=== PATIENT | female | born 1995 | race African-American/Black ===

== ENCOUNTER 2020-01-12 15:53 | Emergency (ER) | payer SELFPAY ==
[2020-01-12] MEDS ORDERED: ONDANSETRON 4 MG (ODT) TAB ONE (16:43)
[2020-01-12 17:13] LABS: Urine Blood TRACE (NEG); Urine Glucose NEGATIVE (NEG); Urine Protein NEGATIVE (NEG); Urine Specific Gravity 1.015 (1.005-1.030); Urine pH >8.5 (5.0-7.0)
[2020-01-12] MEDS ORDERED: PROMETHAZINE INJ 25 MG/ML AMP ONE (17:13)
[2020-01-12] MEDS ORDERED: KETOROLAC 30 MG/ML INJ ONE (17:13)
[2020-01-12] MEDS ORDERED: NA CHLORIDE 0.9% 1,000 ML ONE ×2 (17:13→18:14)
[2020-01-12 17:20] LABS: Absolute Lymphocytes (CBC) 2.3 K/uL (0.7-4.9); Basophils % 0.4 % (0-1.3); Hematocrit 43.9 % (36.0-45.0); Lymphocytes % 17.5 % (15.3-44.8); MPV 7.8 fL (7.6-11.3); RBC Red Blood Cell Count 4.55 M/uL (3.86-4.86)
[2020-01-12 17:37] LABS: ALT/SGPT 24 U/L (12-78); AST/SGOT 11 U/L (15-37); Albumin 4.1 g/dL (3.4-5.0); Alkaline Phosphatase 77 U/L (45-117); BUN Blood Urea Nitrogen 6 mg/dL (7-18); Bicarbonate 31 mmol/L (21-32); Bilirubin Direct 0.2 mg/dL (0-0.2); Bilirubin Total 0.7 mg/dL (0.2-1.0); Glucose Level 103 mg/dL (74-106); Lipase 77 U/L (73-393); Potassium 3.2 mmol/L (3.5-5.1); Sodium Level 135 mmol/L (136-145)
[2020-01-12 17:38] LABS: Urine Bacteria 20-50 /HPF (<20); Urine Culture Reflex Order NOT NEEDED; Urine RBC <5 /HPF (NONE SEEN)
[2020-01-12] MEDS ORDERED: POTASSIUM 25 MEQ EFFERV TAB ONE (18:10)
[2020-01-12] MEDS ORDERED: CEFTRIAXONE/SWI 1gm 1 GM/10 ML SYR ONE (18:11)
--- NOTE | 2020-01-12 19:18 | ER ---
Nurse's Notes [facility] Name: Robin Bernard Age: 24 yrs Sex: Female : 1995 Arrival Date: 01/12/2020 Time: 15:55 Bed 14 Private MD: Diagnosis: Urinary tract infection, site not specified;Generalized abdominal pain;Nausea and vomiting;Hypokalemia Presentation: 01/11 16:02 Chief complaint: Patient states: i have been nauseous and vomiting for 4 days, i just tw2 dry heave mostly but nothing stays down not even water, and i am having abdominal pain right in the middle Parent and/or Guardian states: normally she gets this pain before her menstrual cycle but this time is different. Coronavirus screen: nausea, Client presents with at least one sign or symptom that may indicate coronavirus-19. Standard/surgical mask placed on the client. Provider contacted for isolation considerations. Ebola Screen: Patient denies travel to an Ebola-affected area in the 21 days before illness onset. Initial Sepsis Screen: Does the patient meet any 2 criteria? No. Patient's initial sepsis screen is negative. Does the patient have a suspected source of infection? No. Patient's initial sepsis screen is negative. Risk Assessment: Do you want to hurt yourself or someone else? Patient reports no desire to harm self or others. Onset of symptoms was January 12, 2020. 16:02 Method Of Arrival: Ambulatory tw2 16:02 Acuity: BOZENA 3 tw2 Triage Assessment: 16:05 General: Appears in no apparent distress. uncomfortable, obese, well groomed, Behavior tw2 is calm, cooperative, appropriate for age. Pain: Complains of pain in abdomen. GI: Reports lower abdominal pain, upper abdominal pain, intolerance of fluids, intolerance of food, nausea, vomiting. 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 - Social history:: Smoking status: . Screenin:05 Abuse screen: Denies threats or abuse. Nutritional screening: No deficits noted. tw2 Tuberculosis screening: No symptoms or risk factors identified. Fall Risk None identified. Assessment: 16:00 General: Appears uncomfortable, obese, well groomed, Behavior is calm, cooperative, tw2 appropriate for age. Pain: Complains of pain in abdomen. Neuro: Level of Consciousness is awake, alert, obeys commands, Oriented to person, place, time, situation. Cardiovascular: Heart tones S1 S2 Patient's skin is warm and dry. Respiratory: Airway is patent Respiratory effort is even, unlabored, Respiratory pattern is regular, symmetrical, Breath sounds are clear bilaterally. GI: Abdomen is round non-distended, obese, Bowel sounds present X 4 quads. Reports lower abdominal pain, upper abdominal pain, intolerance of fluids, intolerance of food, nausea, vomiting. : No signs and/or symptoms were reported regarding the genitourinary system. EENT: No signs and/or symptoms were reported regarding the EENT system. Derm: No signs and/or symptoms reported regarding the dermatologic system. Musculoskeletal: Range of motion: intact in all extremities. 17:19 Reassessment: No changes from previously documented assessment. Patient and/or family tw2 updated on plan of care and expected duration. Pain level reassessed. Patient is alert, oriented x 3, equal unlabored respirations, skin warm/dry/pink. 18:22 Reassessment: No changes from previously documented assessment. Patient and/or family tw2 updated on plan of care and expected duration. Pain level reassessed. Patient is alert, oriented x 3, equal unlabored respirations, skin warm/dry/pink. Patient states symptoms have improved. 19:29 Reassessment: Patient appears in no apparent distress at this time. Patient is alert, rr5 oriented x 3, equal unlabored respirations, skin warm/dry/pink. discharge instruction given and explained without complaint made. Patient states symptoms have improved. Vital Signs: 16:02 BP 149 / 99; Pulse 87; Resp 18; Temp 98.7(O); Pulse Ox 99% on R/A; Weight 108.86 kg tw2 (R); Height 5 ft. 5 in. (165.10 cm) (R); Pain 10/10; 17:19 BP 142 / 92; Pulse 77; Resp 18; Pulse Ox 100% on R/A; tw2 18:22 BP 145 / 93; Pulse 85; Resp 17; Pulse Ox 99% on R/A; tw2 19:15 BP 144 / 83; Pulse 89; Resp 19; Temp 98.5; Pulse Ox 99% ; rr5 16:02 Body Mass Index 39.94 (108.86 kg, 165.10 cm) tw2 ED Course: 15:55 Patient arrived in ED. ag5 15:58 Pulse ox on. NIBP on. tw2 15:59 Elin Castaneda RN is Primary Nurse. tw2 16:04 Triage completed. tw2 16:04 Arm band placed on. tw2 16:05 Bed in low position. Call light in reach. Adult w/ patient. tw2 16:14 Nilsa Alex F[facility]-C [facility]. snw 16:14 Jean Carlos Dias MD is Attending Physician. snw 16:29 Urine Microscopic Only Sent. bp 16:29 Urine Culture Sent. bp 17:05 Inserted saline lock: 20 gauge in right antecubital area, using aseptic technique. tw2 Blood collected. 19:02 Report given to COLE Baltazar. tw2 Administered Medications: 16:36 Drug: Zofran (Ondansetron) 4 mg Route: PO; ph 16:51 Follow up: Response: No adverse reaction; Nausea unchanged; Nausea unchanged, provider tw2 at bedside at this time. 16:54 Not Given (Other Intervention Used): TORadol 30 mg IM once snw 17:05 Drug: NS 0.9% 1000 ml Route: IV; Rate: 1 bolus; Site: right antecubital; tw2 18:53 Follow up: Response: No adverse reaction; IV Status: Completed infusion; IV Intake: tw2 1000ml 17:05 Drug: Phenergan 25 mg Route: IVP; Site: right antecubital; tw2 18:05 Follow up: Response: No adverse reaction; Nausea is decreased tw2 17:05 Drug: Ketorolac 30 mg Route: IVP; Site: right antecubital; tw2 18:05 Follow up: Response: No adverse reaction; Pain is decreased tw2 18:00 Drug: Rocephin 1 grams Route: IV; Rate: calculated rate; Site: right antecubital; tw2 18:05 Drug: NS 0.9% 1000 ml Route: IV; Rate: 1 bolus; Site: right antecubital; tw2 19:05 Follow up: Response: No adverse reaction; IV Status: Completed infusion; IV Intake: rr5 1000ml 18:52 Drug: Potassium Effervescent Tablet 50 mEq Route: PO; tw2 18:53 Follow up: Response: No adverse reaction tw2 Intake: 18:53 IV: 1000ml; Total: 1000ml. tw2 19:05 IV: 1000ml; Total: 2000ml. rr5 Outcome: 19:17 Discharge ordered by MD. gresham 19:36 Patient left the ED. rr5 Signatures: Nilsa Alex, ONLINE MERCHANDISING MANAGER-C ONLINE MERCHANDISING MANAGER-Bessy Thomson, RN RN Elin Castaneda RN RN tw2 Gianni Toro RN RN Giovanny Thompson RN RN rr5 Vickey Deshpande 5
--- NOTE | 2020-01-12 19:18 | EDPHYS ---
Physician Documentation [facility] Name: Robin Bernard Age: 24 yrs Sex: Female : 1995 Arrival Date: 01/12/2020 Time: 15:55 Bed 14 Private MD: ED Physician Jean Carlos Dias HPI: 01/11 17:36 This 24 yrs old Black Female presents to ER via Ambulatory with complaints of snw Nausea/Vomiting, Abdominal Pain. 17:36 The patient presents to the emergency department with nausea, vomiting, diarrhea. snw Onset: The symptoms/episode began/occurred suddenly, 4 day(s) ago, and became worse and became persistent. Possible causes: unknown. The symptoms are aggravated by pressure, food . Associated signs and symptoms: Pertinent positives: abdominal pain, anorexia, diarrhea, nausea, vomiting. Severity of symptoms: in the emergency department the symptoms are unchanged. The patient has not experienced similar symptoms in the past. It is unknown whether or not the patient has recently seen a physician. 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 - Social history:: Smoking status: . ROS: 17:35 Constitutional: Negative for fever, chills, and weight loss, Eyes: Negative for injury, snw pain, redness, and discharge, ENT: Negative for injury, pain, and discharge, Neck: Negative for injury, pain, and swelling, Cardiovascular: Negative for chest pain, palpitations, and edema, Respiratory: Negative for shortness of breath, cough, wheezing, and pleuritic chest pain, Abdomen/GI: Positive for abdominal pain, nausea, vomiting, diarrhea, Negative for constipation, Back: Negative for injury and pain, : Negative for injury, bleeding, discharge, and swelling, MS/Extremity: Negative for injury and deformity, Skin: Negative for injury, rash, and discoloration, Neuro: Negative for headache, weakness, numbness, tingling, and seizure, Psych: Negative for depression, anxiety, suicide ideation, homicidal ideation, and hallucinations. Exam: 17:35 Constitutional: This is a well developed, well nourished patient who is awake, alert, snw and in no acute distress. Head/Face: Normocephalic, atraumatic. Eyes: Pupils equal round and reactive to light, extra-ocular motions intact. Lids and lashes normal. Conjunctiva and sclera are non-icteric and not injected. Cornea within normal limits. Periorbital areas with no swelling, redness, or edema. ENT: Nares patent. No nasal discharge, no septal abnormalities noted. Tympanic membranes are normal and external auditory canals are clear. Oropharynx with no redness, swelling, or masses, exudates, or evidence of obstruction, uvula midline. Mucous membranes moist. Neck: Trachea midline, no thyromegaly or masses palpated, and no cervical lymphadenopathy. Supple, full range of motion without nuchal rigidity, or vertebral point tenderness. No Meningismus. Chest/axilla: Normal chest wall appearance and motion. Nontender with no deformity. No lesions are appreciated. Cardiovascular: Regular rate and rhythm with a normal S1 and S2. No gallops, murmurs, or rubs. Normal PMI, no JVD. No pulse deficits. Respiratory: Lungs have equal breath sounds bilaterally, clear to auscultation and percussion. No rales, rhonchi or wheezes noted. No increased work of breathing, no retractions or nasal flaring. Back: No spinal tenderness. No costovertebral tenderness. Full range of motion. Skin: Warm, dry with normal turgor. Normal color with no rashes, no lesions, and no evidence of cellulitis. MS/ Extremity: Pulses equal, no cyanosis. Neurovascular intact. Full, normal range of motion. Neuro: Awake and alert, GCS 15, oriented to person, place, time, and situation. Cranial nerves II-XII grossly intact. Motor strength 5/5 in all extremities. Sensory grossly intact. Cerebellar exam normal. Normal gait. Psych: Awake, alert, with orientation to person, place and time. Behavior, mood, and affect are within normal limits. 17:35 Abdomen/GI: Inspection: abdomen appears normal, Bowel sounds: active, all quadrants, Palpation: moderate abdominal tenderness, in the left upper quadrant and right lower quadrant. Vital Signs: 16:02 BP 149 / 99; Pulse 87; Resp 18; Temp 98.7(O); Pulse Ox 99% on R/A; Weight 108.86 kg tw2 (R); Height 5 ft. 5 in. (165.10 cm) (R); Pain 10/10; 17:19 BP 142 / 92; Pulse 77; Resp 18; Pulse Ox 100% on R/A; tw2 18:22 BP 145 / 93; Pulse 85; Resp 17; Pulse Ox 99% on R/A; tw2 19:15 BP 144 / 83; Pulse 89; Resp 19; Temp 98.5; Pulse Ox 99% ; rr5 16:02 Body Mass Index 39.94 (108.86 kg, 165.10 cm) tw2 MDM: 16:19 Patient medically screened. snw 19:19 Data reviewed: vital signs, nurses notes. Data interpreted: Pulse oximetry: on room air snw is 99 %. Interpretation: normal. Counseling: I had a detailed discussion with the patient and/or guardian regarding: the historical points, exam findings, and any diagnostic results supporting the discharge/admit diagnosis, the presence of at least one elevated blood pressure reading (>120/80) during this emergency department visit, lab results, the need for outpatient follow up, to return to the emergency department if symptoms worsen or persist or if there are any questions or concerns that arise at home. Response to treatment: the patient's symptoms have markedly improved after treatment. Special discussion: Based on the patient's Hx, exam, and Dx evaluation, there is no indication for emergent surgery or inpatient Tx. It is understood by the patient/guardian that if the Sx's persist or worsen they need to return immediately for re-evaluation. I have referred the patient to see his PCP for further evaluation of high blood pressure. Based on the history and exam findings, there is no indication for further emergent testing or inpatient evaluation. I discussed with the patient/guardian the need to see the primary care provider for further evaluation of the symptoms. 01/11 16:14 Order name: Urine Culture snw 01/11 16:14 Order name: Urine Microscopic Only; Complete Time: 17:39 snw 01/11 16:43 Order name: Urine Dipstick--Ancillary (enter results); Complete Time: 17:19 bd 01/11 16:43 Order name: Urine --Ancillary (enter results); Complete Time: 17:20 bd 01/11 16:55 Order name: Basic Metabolic Panel; Complete Time: 17:39 snw 01/11 16:55 Order name: CBC with Diff; Complete Time: 17:32 snw 01/11 16:55 Order name: Hepatic Function; Complete Time: 17:39 snw 01/11 16:55 Order name: Lipase; Complete Time: 17:39 snw 01/11 16:14 Order name: Urine Test (obtain specimen); Complete Time: 16:29 snw 01/11 16:14 Order name: Urine Dipstick-Ancillary (obtain specimen); Complete Time: 16:29 snw 01/11 16:55 Order name: Labs collected and sent; Complete Time: 17:12 snw 01/11 17:12 Order name: IV Start; Complete Time: 17:13 tw2 Administered Medications: 16:36 Drug: Zofran (Ondansetron) 4 mg Route: PO; ph 16:51 Follow up: Response: No adverse reaction; Nausea unchanged; Nausea unchanged, provider tw2 at bedside at this time. 16:54 Not Given (Other Intervention Used): TORadol 30 mg IM once snw 17:05 Drug: NS 0.9% 1000 ml Route: IV; Rate: 1 bolus; Site: right antecubital; tw2 18:53 Follow up: Response: No adverse reaction; IV Status: Completed infusion; IV Intake: tw2 1000ml 17:05 Drug: Phenergan 25 mg Route: IVP; Site: right antecubital; tw2 18:05 Follow up: Response: No adverse reaction; Nausea is decreased tw2 17:05 Drug: Ketorolac 30 mg Route: IVP; Site: right antecubital; tw2 18:05 Follow up: Response: No adverse reaction; Pain is decreased tw2 18:00 Drug: Rocephin 1 grams Route: IV; Rate: calculated rate; Site: right antecubital; tw2 18:05 Drug: NS 0.9% 1000 ml Route: IV; Rate: 1 bolus; Site: right antecubital; tw2 19:05 Follow up: Response: No adverse reaction; IV Status: Completed infusion; IV Intake: rr5 1000ml 18:52 Drug: Potassium Effervescent Tablet 50 mEq Route: PO; tw2 18:53 Follow up: Response: No adverse reaction tw2 Disposition: 01/12 09:29 Co-signature as Attending Physician, Jean Carlos Dias MD I agree with the assessment and ashok plan of care. Disposition: 01/12/20 19:17 Discharged to Home. Impression: Urinary tract infection, site not specified, Generalized abdominal pain, Nausea and vomiting, Hypokalemia. - Condition is Stable. - Discharge Instructions: Dehydration, Adult, Potassium Content of Foods, Nausea and Vomiting, Adult, Urinary Tract Infection, Adult, Abdominal Pain, Adult, [id number], Hypokalemia, Rehydration, Adult. - Prescriptions for Diclofenac Sodium 75 mg Oral Tablet Sustained Release - take 1 tablet by ORAL route 2 times per day; 30 tablet. promethazine 25 mg Oral Tablet - take 1 tablet by ORAL route every 6 hours As needed; 20 tablet. - Work release form, Medication Reconciliation Form, Thank You Letter, Antibiotic Education, Prescription Opioid Use form. - Follow up: Emergency Department; When: As needed; Reason: Worsening of condition. Follow up: Private Physician; When: 2 - 3 days; Reason: Recheck today's complaints, Continuance of care, Re-evaluation by your physician. Signatures: Dispatcher [employer] [facility] Jean Carlos Dias MD MD cha Waters, Shelly, COFOUNDER-C COFOUNDER-Csnw Bessy Frias, RN RN Elin Castaneda RN RN tw2 Giovanny Thompson RN RN rr5 Corrections: (The following items were deleted from the chart) 01/11 19:36 19:17 01/12/2020 19:17 Discharged to Home. Impression: Urinary tract infection, site rr5 not specified; Generalized abdominal pain; Nausea and vomiting; Hypokalemia. Condition is Stable. Forms are Medication Reconciliation Form, Thank You Letter, Antibiotic Education, Prescription Opioid Use. Follow up: Emergency Department; When: As needed; Reason: Worsening of condition. Follow up: Private Physician; When: 2 - 3 days; Reason: Recheck today's complaints, Continuance of care, Re-evaluation by your physician. snw
[2020-01-12 23:37] VITALS: O2SAT 99
[2020-01-12 23:39] VITALS: BP 144/83; TEMP 98.5
== END 2020-01-12 19:36 | disposition home or self-care (01) ==
LOC: ER 15:53
DX: N39.0 Urinary tract infection, site not specified (principal); E87.6 Hypokalemia; R10.84 Generalized abdominal pain
CPT/HCPCS: 36415; 80048; 80076; 81003; 81015; 81025; 83690; 85025; 87086; 87088; 96361; 96374; 96375; 99284; J0696; J2550; J7030

== ENCOUNTER 2020-02-10 | Emergency (ER) | payer SELFPAY ==
--- NOTE | 2020-02-10 15:21 | ER ---
Nurse's Notes [facility] Name: Robin Bernard Age: 24 yrs Sex: Female : 1995 Arrival Date: 02/10/2020 Time: 14:08 Bed Waiting Private MD: Diagnosis: Assessment: 02/09 14:38 Reassessment: pt not in lobby. iw 15:20 Reassessment: pt not in lobby. iw ED Course: 14:08 Patient arrived in ED. rg4 15:20 Lucille Esposito, RN is Primary Nurse. iw Administered Medications: No medications were administered Outcome: 15:20 Patient left the ED. iw 15:20 Eloped from waiting room, before seeing physician iw 15:20 Condition: unchanged Signatures: Lucille Esposito, RN RN Kate Gomez rg4
== END 2020-02-10 15:20 | disposition left against medical advice (07) ==
DX: Z02.9 Encounter for administrative examinations, unspecified (principal)

== ENCOUNTER 2020-02-11 09:58 | Emergency (ER) | payer SELFPAY ==
[2020-02-11 11:07] LABS: Absolute Lymphocytes (CBC) 2.5 K/uL (0.7-4.9); Basophils % 0.4 % (0-1.3); Hematocrit 44.4 % (36.0-45.0); Lymphocytes % 22.5 % (15.3-44.8); MPV 7.5 fL (7.6-11.3); RBC Red Blood Cell Count 4.58 M/uL (3.86-4.86)
[2020-02-11] MEDS ORDERED: NA CHLORIDE 0.9% 1,000 ML ONE (11:14)
[2020-02-11] MEDS ORDERED: ONDANSETRON 4 MG/2 ML VIAL ONE ×2 (11:14→12:18)
[2020-02-11] MEDS ORDERED: MORPHINE 4 MG/ML SYR ONE (11:14)
[2020-02-11 11:40] LABS: ALT/SGPT 13 U/L (12-78); AST/SGOT 9 U/L (15-37); Alkaline Phosphatase 80 U/L (45-117); BUN Blood Urea Nitrogen 10 mg/dL (7-18); Bicarbonate 28 mmol/L (21-32); Bilirubin Direct 0.1 mg/dL (0-0.2); Bilirubin Total 0.5 mg/dL (0.2-1.0); Glucose Level 100 mg/dL (74-106); Lipase 144 U/L (73-393); Sodium Level 140 mmol/L (136-145)
--- NOTE | 2020-02-11 11:41 | RAD REPORT ---
EXAM DESCRIPTION: CT - Abdomen Pelvis W Contrast - 02/11/2020 11:23 am CLINICAL HISTORY: ABD PAIN COMPARISON: No comparisons TECHNIQUE: Biphasic, helical CT imaging of the abdomen and pelvis was performed following 100 ml non -ionic IV contrast. No oral contrast administered. All CT scans are performed using dose optimization technique as appropriate and may include automated exposure control or mA/KV adjustment according to patient size. FINDINGS: No suspicious findings in the lung bases. The liver, spleen, and pancreas show no suspicious findings. Gallbladder and biliary tree are also wi thout suspicious finding. Symmetric renal function is seen with no hydronephrosis or suspicious renal mass. No pyelonephritis o r acute parenchymal process. No bladder abnormalities. No adrenal abnormalities. Uterus and ovaries s how no suspicious findings. No dilated bowel loops or bowel wall thickening. Appendix is normal. Patient has very minimal diverti culosis. No free air, free fluid or inflammatory stranding. No mass or bulky lymphadenopathy. Patien t has a very minimal umbilical hernia containing only fat. No suspicious bony findings. IMPRESSION: Contrast enhanced CT abdomen and pelvis showing no significant or suspicious finding.
[2020-02-11] MEDS ORDERED: POTASSIUM CL SA 10 MEQ TAB PO ONE (12:53)
--- NOTE | 2020-02-11 13:51 | ER ---
Nurse's Notes [facility] Name: Robin Bernard Age: 24 yrs Sex: Female : 1995 Arrival Date: 02/11/2020 Time: 10:00 Bed 16 Private MD: Diagnosis: Abdominal and pelvic pain Presentation: 02/10 10:05 Chief complaint: Patient states: n/v, pelvic pain (pt currently on her menstrual sv cycle), chest pain started Sunday. Coronavirus screen: Client denies travel out of the [place] in the last 14 days. Ebola Screen: No symptoms or risks identified at this time. Risk Assessment: Do you want to hurt yourself or someone else? Patient reports no desire to harm self or others. Onset of symptoms was January 2020. 10:05 Method Of Arrival: Ambulatory sv 10:05 Acuity: BOZENA 3 sv 10:06 Initial Sepsis Screen: Does the patient meet any 2 criteria? HR > 90 bpm. No. Patient's sv initial sepsis screen is negative. Does the patient have a suspected source of infection? No. Patient's initial sepsis screen is negative. Triage Assessment: 10:13 General: Appears ill, Behavior is calm, cooperative, appropriate for age. 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 - Social history:: Smoking status: Patient denies any tobacco usage or history of. Screenin:12 Abuse screen: Denies threats or abuse. Nutritional screening: No deficits noted. ll1 Tuberculosis screening: No symptoms or risk factors identified. Fall Risk None identified. IV access (20 points). Gait- Weak (10 pts.). Total Carroll Fall Scale indicates Low Risk Score (25-44 pts). Fall prevention measures have been instituted. Side Rails Up X 2 Placed close to Nursing Station Frequent Obs/Assesments occuring As available Patient and Family Educated on Fall Prevention Program and strategies. Assessment: 10:13 Pain: Complains of pain in pelvic Pain does not radiate. Quality of pain is described ll1 as aching, crampy, Pain began 2-3 days ago. Neuro: No deficits noted. Cardiovascular: No deficits noted. Heart tones S1 S2 Capillary refill < 3 seconds Clubbing of nail beds is absent JVD is absent Patient's skin is warm and dry. Respiratory: No deficits noted. GI: Abdomen is round Bowel sounds present X 4 quads. Abd is soft and non tender X 4 quads. Reports lower abdominal pain, nausea, vomiting. : No deficits noted. Denies burning with urination. 11:15 Reassessment: No changes from previously documented assessment. Patient and/or family ll1 updated on plan of care and expected duration. Pain level reassessed. Patient is alert, oriented x 3, equal unlabored respirations, skin warm/dry/pink. 12:15 Reassessment: No changes from previously documented assessment. Patient and/or family ll1 updated on plan of care and expected duration. Pain level reassessed. Patient is alert, oriented x 3, equal unlabored respirations, skin warm/dry/pink. 13:15 Reassessment: No changes from previously documented assessment. Patient and/or family ll1 updated on plan of care and expected duration. Pain level reassessed. Patient is alert, oriented x 3, equal unlabored respirations, skin warm/dry/pink. 14:02 Reassessment: No changes from previously documented assessment. Patient and/or family ll1 updated on plan of care and expected duration. Pain level reassessed. Patient states feeling better. Vital Signs: 10:06 BP 130 / 82; Pulse 97; Resp 20; Temp 97.4; Pulse Ox 99% ; Weight 108.86 kg; Height 5 sv ft. 5 in. (165.10 cm); 14:02 BP 116 / 76; Pulse 78; Resp 19; Pulse Ox 99% ; Pain 2/10; ll1 10:06 Body Mass Index 39.94 (108.86 kg, 165.10 cm) sv ED Course: 10:00 Patient arrived in ED. rg4 10:05 Arm band placed on. sv 10:06 Triage completed. sv 10:11 Inocencio Love, RN is Primary Nurse. ll1 10:11 Patient placed in an exam room, on a stretcher. ll1 10:13 Patient has correct armband on for positive identification. Bed in low position. Call ll1 light in reach. Side rails up X 1. Pulse ox on. NIBP on. 10:32 Inserted saline lock: 22 gauge in right antecubital area, using aseptic technique. ll1 Blood collected. 10:37 Demond Benitez MD is Attending Physician. kdr 11:24 CT Abd/Pelvis - IV Contrast Only In Process Unspecified. EDMS 14:03 No provider procedures requiring assistance completed. IV discontinued, intact, ll1 bleeding controlled, No redness/swelling at site. Pressure dressing applied. Patient maintains SpO2 saturation greater than 95% on room air. Administered Medications: 11:08 Drug: NS 0.9% 1000 ml Route: IV; Rate: 1 bolus; Site: right antecubital; ll1 14:03 Follow up: Response: No adverse reaction; RASS: Alert and Calm (0); IV Status: ll1 Completed infusion; IV Intake: 1000ml 11:08 Drug: morphine 4 mg Route: IVP; Site: right antecubital; ll1 12:00 Follow up: Response: No adverse reaction; Pain is decreased; RASS: Alert and Calm (0) ll1 11:08 Drug: Zofran (Ondansetron) 4 mg Route: IVP; Site: right antecubital; ll1 12:00 Follow up: Response: No adverse reaction; Nausea is decreased; RASS: Alert and Calm (0) ll1 12:08 Drug: Zofran (Ondansetron) 2 mg Route: IVP; Site: right antecubital; ll1 12:40 Follow up: Response: No adverse reaction; Nausea is decreased; RASS: Alert and Calm (0) ll1 12:40 Drug: Potassium Chloride 40 mEq Route: PO; ll1 14:03 Follow up: Response: No adverse reaction; RASS: Alert and Calm (0) ll1 Intake: 14:03 IV: 1000ml; Total: 1000ml. ll1 Outcome: 13:50 Discharge ordered by . kdr 14:04 Discharged to home ambulatory. ll1 14:04 Condition: stable 14:04 Discharge instructions given to patient, Instructed on discharge instructions, follow up and referral plans. medication usage, Demonstrated understanding of instructions, follow-up care, medications, Prescriptions given X 2. 14:05 Patient left the ED. ll1 Signatures: Dispatcher [employer] EDMS Monica Valenzuela RN RN Demond Benitez MD MD kdr Garcia, Rubi 4 Inocencio Love RN RN ll1 Corrections: (The following items were deleted from the chart) 10: 10:05 Chief complaint: Patient states: n/v, pelvic pain, chest pain started Sunday. sv sv 10: 10:06 Pulse 97bpm; Resp 20bpm; Pulse Ox 99%; Temp 97.4F; 108.86 kg; Height 5 ft. 5 in.; sv BMI: 39.9; sv
--- NOTE | 2020-02-11 13:51 | EDPHYS ---
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 - Social history:: Smoking status: Patient denies any tobacco usage or history of. Vital Signs: 10:06 BP 130 / 82; Pulse 97; Resp 20; Temp 97.4; Pulse Ox 99% ; Weight 108.86 kg; Height 5 sv ft. 5 in. (165.10 cm); 14:02 BP 116 / 76; Pulse 78; Resp 19; Pulse Ox 99% ; Pain 2/10; ll1 10:06 Body Mass Index 39.94 (108.86 kg, 165.10 cm) sv MDM: 13:50 Patient medically screened. [facility] 02/10 10:48 Order name: Basic Metabolic Panel; Complete Time: 12:29 [facility] 02/10 10:48 Order name: CBC with Diff; Complete Time: 12:29 [facility] 02/10 10:48 Order name: Hepatic Function; Complete Time: 12:30 [facility] 02/10 10:48 Order name: Lipase; Complete Time: 12:30 [facility] 02/10 11:32 Order name: CREATININE WHOLE BLOOD; Complete Time: 12:30 [facility] 02/10 13:52 Order name: Urine Dipstick--Ancillary (enter results) 02/10 10:48 Order name: IV Saline Lock; Complete Time: 10:55 [facility] 02/10 10:48 Order name: CT Abd/Pelvis - IV Contrast Only; Complete Time: 12:30 [facility] 02/10 13:52 Order name: Urine --Ancillary (enter results) 02/10 10:48 Order name: Labs collected and sent; Complete Time: 12:00 [facility] 02/10 10:48 Order name: Urine Dipstick-Ancillary (obtain specimen); Complete Time: 14:03 [facility] 02/10 10:48 Order name: Urine Test (obtain specimen); Complete Time: 14:03 kdr Administered Medications: 11:08 Drug: NS 0.9% 1000 ml Route: IV; Rate: 1 bolus; Site: right antecubital; 1 14:03 Follow up: Response: No adverse reaction; RASS: Alert and Calm (0); IV Status: ll1 Completed infusion; IV Intake: 1000ml 11:08 Drug: morphine 4 mg Route: IVP; Site: right antecubital; 1 12:00 Follow up: Response: No adverse reaction; Pain is decreased; RASS: Alert and Calm (0) [facility] 11:08 Drug: Zofran (Ondansetron) 4 mg Route: IVP; Site: right antecubital; 1 12:00 Follow up: Response: No adverse reaction; Nausea is decreased; RASS: Alert and Calm (0) ll1 12:08 Drug: Zofran (Ondansetron) 2 mg Route: IVP; Site: right antecubital; 1 12:40 Follow up: Response: No adverse reaction; Nausea is decreased; RASS: Alert and Calm (0) [facility] 12:40 Drug: Potassium Chloride 40 mEq Route: PO; ll1 14:03 Follow up: Response: No adverse reaction; RASS: Alert and Calm (0) [facility] Disposition: 02/11/20 13:50 Discharged to Home. Impression: Abdominal and pelvic pain. - Condition is Stable. - Discharge Instructions: Abdominal Pain, Adult, [id number]. - Prescriptions for Zofran 4 mg Oral Tablet - take 1 tablet by ORAL route every 4-6 hours As needed; 12 tablet. Tramadol 50 mg Oral Tablet - take 1 tablet by ORAL route every 8 hours as needed; 12 tablet. - Medication Reconciliation Form, Thank You Letter, Prescription Opioid Use, Work release form form. - Follow up: Private Physician; When: 2 - 3 days; Reason: If symptoms return, Further diagnostic work-up, Recheck today's complaints, Continuance of care, Re-evaluation by your physician. - Problem is new. - Symptoms have improved. Addendum: 03/01/2020 18:46 Addendum: CC: Abdomen and pelvic pain. HPI: The patient states that she has had pelvic k dr and lower abdominal pain since Sunday along with chest pain. She has not had this pain before, ROS: COnst: no fever, chills or weight loss, Eyes: No visual changes, Neck, no pain or injury, CV: The patient c/o chest pain that started on Sunday, Resp: No SOB, cough or congestion, Abd: Lower abdominal pain with no n/v/d: Pelvis Mild pelvic pain with no discharge. The patient is on her period, Ext; No pain, injury or swelling Exam: WDWN BF in NAD, HEAD/FACE: no injury, pain or deformity, Eyes: PERRLA, Chest: No pain, injury or deformity: Mild diffuse tenderness with diminished BS, No rebound or guarding, Neruo: A\T\Ox 3, no deficits MDM; The patient responded well to the interventions given. She was happy with the care provided and the plan for discharge and follow-up. Signatures: Dispatcher [employer] Monica Dumont, RN RN Demond Benitez MD MD kdr Inocencio Love RN RN ll1 Corrections: (The following items were deleted from the chart) 02/10 14:05 13:50 02/11/2020 13:50 Discharged to Home. Impression: Abdominal and pelvic pain. ll1 Condition is Stable. Forms are Medication Reconciliation Form, Thank You Letter, Antibiotic Education, Prescription Opioid Use. Follow up: Private Physician; When: 2 - 3 days; Reason: If symptoms return, Further diagnostic work-up, Recheck today's complaints, Continuance of care, Re-evaluation by your physician. Problem is new. Symptoms have improved. kdr
[2020-02-11 17:48] VITALS: TEMP 97.4; O2SAT 99
[2020-02-11 17:49] VITALS: BP 116/76
[2020-02-11 20:16] LABS: Urine Blood 3+ (NEG); Urine Glucose NEGATIVE (NEG); Urine Protein TRACE (NEG)
== END 2020-02-11 14:05 | disposition home or self-care (01) ==
LOC: ER 09:58
DX: R10.2 Pelvic and perineal pain (principal)
CPT/HCPCS: 36415; 74177; 80048; 80076; 81003; 81025; 82565; 83690; 85025; 96361; 96374; 96375; 99284; J2405; J7030; Q9967

== ENCOUNTER 2021-06-04 03:52 | Emergency (ER) | payer OTHER, SELFPAY ==
--- OUTSIDE RECORDS SUMMARY | 2021-06-04 03:57 | XMS REPORT | Continuity of Care Document ---
:1995 Author Organization [facility] t Address [address] [place] [address] Dr. Julien [address] [place] [address] Care Team Providers Name Role Phone Pcp, Does Not Have A Primary Care Physician Jason VARGAS Attending Clinician Angela Terry MD Attending Clinician Angela TERRY Attending Clinician Unavailable Angela TERRY Attending Clinician Unavailable Angela Terry MD Admitting Clinician Angela TERRY Admitting Clinician Unavailable Payers Payer Name Policy Type Policy Number Effective Date Expiration Date S ource Problems Condition Condition Condition Status Onset Resolution Last Treating Co mments Source Name Details Category Date Date Treatment Clinician Date Obesity Obesity Disease Active Univers (BMI (BMI 4-12 ity of 30-39.9) 30-39.9) 00:00: [address] Hyperemesi Hyperemesi Disease Active U nivers s s 4-12 [place]y of gravid[place] [facility] 12 weeks 12 weeks Disease Active Unive rs gestation gestation 4-12 ity of of of 00:00: [place] 00 [facility] Branch Hypokalemi Hypokalemi Disease Active U nivers a a 4-12 ity of 00:00: [address] Hyponatrem Hyponatrem Disease Active U nivers ia ia 4-12 ity of 00:00: [address] Tachycardi Tachycardi Disease Active U nivers a a 4-12 ity of 00:00: [place] 00 Medical Branch E46 E46 Disease Active Univers Unspecifie Unspecifie 12 it y of d severe d severe 00:00: [place] protein-ca protein-ca 00 Me dical ash ash Branch malnutriti malnutriti on on Allergies, Adverse Reactions, Alerts Allergy Allergy Status Severity Reaction(s) Onset Inactive Treating Comm ents Source Name Type Date Date Clinician Metoclop Drug Active Extra Univers ramide Allergy pyramidal 05-31 ity of effects 00:00: [place] [facility] METOCLOP DRUG Active Med EP Effects Univ ers RAMIDE INGREDI 05-31 ity of 00:00: [address] NO KNOWN Drug Active Univers ALLERGIE Class ity of S [facility] Social History Social Habit Start Date Stop Date Quantity Comments Source Exposure to Not sure [facility] SARS-CoV-2 (event) [facility] [place] Sex Assigned At [birth year] [facility] 00:00:00 00:00:00 [facility] Smoking Status Start Date Stop Date Source Unknown if ever smoked [facility] Medications Ordered Filled Start Stop Current Ordering Indication Dosage Frequency Signature Comments Components Source Medication Medication Date Date Medication? Clinician (SIG) Name Name simethicone Yes 120mg 120 mg, Un rustam (GAS RELIEF 06-03 Oral, ity of (SIMETHICON 15:15: PC[place]HS, [place] E[place] 00 First dose Medical chewable on Sun Branch tablet 120 06/03/21 at mg 1015, Until Discontinu ed, Routine alum-mag Yes 30mL 30 mL, Univers hydroxide-s 06-03 Oral, ity of imeth 15:13: Q6HPRN, [place] (MAALOX 12 Starting Medical PLUS / on Fri Branch MAG-AL 06/03/21 at PLUS) 1013, 200-200-20 Until mg/5 mL Discontinu suspension ed, 30 mL Routine, Indigestio n diphenhydrA No 25mg 25 mg, Uni vers MINE 06-03 04-15 Oral, ity of (BENADRYL) 02:15: 03:56 ONCE, 1 [place] tablet 25 00 :00 dose, On Medica l mg [place] Branch 06/02/21 at 2115, Routine melatonin Yes 3mg 3 mg, Univers (MELATIN) 4-15 Oral, ity of tablet 3 mg 01:12: QHSPRN, [place] 46 Starting Medical on [place] Branch 06/02/21 at 2012, Until Discontinu ed, Routine, Insomnia pantoprazol 2022- Yes [id number] 40mg Take 1 Univers e 40 mg EC 4-15 04-11 tablet by ity of tablet 00:00: 04:59 mouth [place] 00 :00 daily for Medical 360 days. Branch 2021- Yes [id number] 1{tbl} Take 1 Univers vitamin 4-15 10-13 tablet by ity of w/FA tablet 00:00: 04:59 [place] 00 :00 daily for Medical 180 days. Branch doxylamine 2021- Yes [id number] 12.5mg Take 0.5 Univers 25 mg 4-15 07-15 tablets by ity of tablet 00:00: 04:59 mouth 4 [place] 00 :00 (four) Medical times Branch daily for 90 days. pyridoxine, 2021- Yes [id number] 25mg Take 1 Univers VITAMIN 4-15 07-15 tablet by ity of B-6, 25 mg 00:00: 04:59 mouth 4 [place] tablet 00 :00 (four) Medical times Branch daily for 90 days. proMETHazin 2021- Yes [id number] 25mg Take 1 Univers e 25 mg 4-15 05-16 tablet by ity of tablet 00:00: 04:59 mouth [place] 00 :00 every 6 Medical (six) Branch hours as needed for Nausea and Vomiting (N/V) for up to 30 days. NaCl 0.9% Yes IV Univers (NS) 1000 4-14 Infusion, ity o f mL + KCL 40 21:00: at 200 [place] mEq 00 mL/hr, Medical CONTINUOUS Branch , Starting on [place] 06/02/21 at 1600, Until Discontinu ed, Routine potassium 2021- No 20meq 20 mEq, IV Univers chloride 20 4-14 04-14 Piggyback, i ty of mEq/100 mL 21:00: 23:41 Q2H, 2 [place] (KCL) 20 00 :00 doses, Medical mEq/100 mL First dose Bra nch RTU IVPB 20 on [place] mEq 06/02/21 at 1600, Last dose on [place] 06/02/21 at 1800, 100 mL proMETHazin 2021-0 Yes 25mg 25 mg, Univ ers e 4-14 Oral, Q6H, ity of (PHENERGAN) 17:00: First dose [place] tablet 25 00 (after Medical mg last Branch modificati on) on [place] 06/02/21 at 1200, Until Discontinu ed, Routine pantoprazol 0 Yes 40mg 40 mg, Univ ers e -13 Oral, ity of (PROTONIX) 17:15: DAILY, [place] EC tablet 00 First dose Medi leidy 40 mg on Sun Branch 06/01/21 at 1215, Until Discontinu ed, Routine proMETHazin 0 2021- No 12.5mg 12.5 mg, Univers e 06-0114 Oral, Q6H, ity of (PHENERGAN) 17:00: 15:12 First dose [place] tablet 12.5 00 :49 on Sun Medica l mg 06/01/21 at Branch 1200, Until Discontinu ed, Routine ondansetron 0 Yes 4mg 4 mg, Slow Univers (ZOFRAN 06-01 IV Push, ity of (PF)) 15:31: Q6HPRN, [place] injection 4 45 Nausea and Me dical mg Vomiting Branch (N/V), Starting on Sun06/01/21 at 1031
Do ses of ondansetro n 16 mg and above need to be administer ed via IV piggyback. For Dose >=24mg ECG monitoring is advisable.
KCL 2021-0 202- No 40meq 40 mEq, Univers (KLOR-CON 06-0114 Oral, BID, ity of M20) tablet 15:30: 01:09 2 doses, [place] 40 mEq 00 :00 First dose Medical on Sun Branch 06/01/21 at 1030, Last dose on Sun06/01/21 at 2000, Routine doxylamine 2021-0 Yes 12.5mg 12.5 mg, U nivers (SLEEP AID) 4-13 Oral, QID, it y of tablet 12.5 13:45: First dose [place] mg 00 on Sun Medical 06/01/21 at Branch 0845, Until Discontinu ed, Routine pyridoxine 2021-0 Yes 25mg 25 mg, Unive rs (VITAMIN 4-13 Oral, QID, ity o f B-6) tablet 13:45: First dose [place] 25 mg 00 on Sun Medical 06/01/21 at Branch 0845, Until Discontinu ed, Routine lactated 2021-0 Yes 1000mL at 125 Unive rs ringers IV 4-13 mL/hr, ity of infusion 13:15: 1,000 mL, [place] 1,000 mL 00 IV Medical Infusion, [place] CONTINUOUS , Starting on Sun06/01/21 at 0815, Until Discontinu ed, Routine KCL 20 2021-0 Yes 40meq 40 mEq, Univers mEq/15 mL 4-13 Oral, BID, ity of solution 40 13:00: First dose [place] mEq 00 on Sun Medical 06/01/21 at Branch 0800, Until Discontinu ed, Routine potassium 2021-2021- No 20meq 20 mEq, IV Univers chloride 20 06-01 Piggyback, i ty of mEq/100 mL 11:00: 15:31 Q2H, 4 [place] (KCL) 20 00 :59 doses, Medical mEq/100 mL First dose [facility] RTU IVPB 20 on Sun mEq 06/01/21 at 0600, Last dose on Sun06/01/21 at 1200, 100 mL lactated 0 2021- No 1000mL at 42 Unive rs ringers IV 06-01-13 mL/hr, ity of infusion 08:00: 13:10 1,000 mL, [place] as 1,000 mL 00 :38 IV Medical Infusion, [place] CONTINUOUS , Starting on Sun06/01/21 at 0300, Until Sun06/01/21 at 0810, Routine potassium 2021-2021- No 20meq 20 mEq, IV Univers chloride 20 06-01 Piggyback, i ty of mEq/100 mL 03:00: 06:40 Q2H, 1 [place] (KCL) 20 00 :00 dose, Medical mEq/100 mL First dose [facility] RTU IVPB 20 (after mEq last reorder) on Sun05/31/21 at 2200, 100 mL acetaminoph 202-0 2021- No 1000mg 1,000 mg, Univers en ADULT 06-01 IV ity of (OFIRMEV) 03:00: 02:46 [place]fusion, [place] injection 00 :00 Administer Medi leidy 1,000 mg over 15 Branch Minutes, ONCE, 1 dose, On Sun05/31/21 at 2200, Routine
Indicatio n: Non-periop erative Patient
Approved by: Per Policy (NPO Status) diphenhydrA No 12.5mg 12.5 mg, [facility] 06-01 Intravenou ity of (BENADRYL) 01:45: 01:34 s, ONCE, 1 [place] injection 00 :00 dose, On Medica l 12.5 mg Sun05/31/21 at 2045, Routine NaCl 0.9% Yes 10mL 10 mL, Univer s (NS) 05-31 Slow IV ity of injection 22:16: [place], [place]N, [place] 10 mL 32 Starting Medical on Sun Branch 05/31/21 at 1716, Until Discontinu ed, Routine, line maintenanc e thiamine No 100mg IV Univers (VITAMIN 05-31 Piggyback, ity of B1) 100 mg 21:15: 15:31 DAILY, [place] in NaCl 00 :59 First dose Medica l 0.9% (NS) (after Branch piggyback last modificati on) on Sun05/31/21 at 1615, Until Discontinu ed, 50 mL maalox:diph No 15mL 15 mL, Uni vers enhydrAMINE 05-31 Oral, ity of :lidocaine 19:45: 23:37 ONCE, 1 [place] 2 % viscous 00 :00 dose, On Medi leidy 1:1:1 [place] Branch (FIRST-MOUT 05/31/21 at [facility]) 1445, oral Routine suspension 15 mL NaCl 0.9% + 2021- No IV Unive rs KCL 40 mEq 05-31 Infusion, ity of RTU 1,000 16:15: 22:14 CONTINUOUS [place] mL IV 00 :00 , Starting Medical Infusion on Sun Branch 05/31/21 at 1115, Until Sun05/31/21 at 1714, 1,000 mL, at 200 mL/hr FENTanyl PF No 50ug 50 mcg, Un rustam (SUBLIMAZE 05-31 Slow IV ity o f (PF)) 15:00: 14:39 Push, [place] injection 00 :00 ONCE, 1 Medical 50 mcg dose, On Branch Sun05/31/21 at 1000, Routine potassium 2021- No 20meq 20 mEq, IV Univers chloride 20 05-31 Piggyback, i ty of mEq/100 mL 15:00: 19:45 Q2H, 2 [place] (KCL) 20 00 :00 doses, Medical mEq/100 mL First dose [facility] RTU IVPB 20 on Sun mEq 05/31/21 at 1000, Last dose on Sun05/31/21 at 1200, 100 mL lactated No 1000mL at 150 Univ ers ringers IV 05-31 mL/hr, ity of infusion 14:45: 22:05 1,000 mL, [place] 1,000 mL 00 :15 IV Medical Infusion, Branch CONTINUOUS , Starting on Sun05/31/21 at 0945, Until Sun05/31/21 at 1705, Routine ondansetron No 4mg 4 mg, Slow Univers (ZOFRAN 05-31 IV Push, ity of (PF)) 14:00: 13:09 ONCE, On [place] injection 4 00 :00 e Medical mg 05/31/21 at Branch 0900, For 1 dose
Do ses of ondansetro n 16 mg and above need to be administer ed via IV piggyback. For Dose >=24mg ECG monitoring is advisable.
acetaminoph Yes 650mg 650 mg, Un rustam en 12 Oral, ity of (TYLENOL) 13:23: Q6HPRN, [place] tablet 650 54 Starting Medic al mg on Tue Branch 05/31/21 at 0823, Until Discontinu ed, Routine, abdominal discomfort ondansetron 2021- No 4mg 4 mg, Slow Univers (ZOFRAN 4-12 04-13 IV Push, ity of (PF)) 13:23: 16:22 Q6HPRN, [place] injection 4 29 :37 Nausea and Me dical mg Vomiting Branch (N/V), Starting on e 05/31/21 at 0823
Do ses of ondansetro n 16 mg and above need to be administer ed via IV piggyback. For Dose >=24mg ECG monitoring is advisable.
docusate Yes 240mg 240 mg, Unive rs calcium 4-12 Oral, ity of (SURFAK) 13:21: QHSPRN, [place] capsule 240 11 Starting Medi leidy mg on Tue Branch 05/31/21 at 0821, Until Discontinu ed, Routine, Constipati on magnesium Yes 30mL 30 mL, Univer s hydroxide 12 Oral, ity of (MILK OF 13:21: QDAILYPRN, [place] MAGNESIA) 11 Starting Medica l 400 mg/5 mL on Sun Branch suspension 05/31/21 at 30 mL 0821, Until Discontinu ed, Routine, Constipati on piperacilli 2021- No 3.375g 3.375 g, Univers n-tazobacta 05-31 IV ity of m (ZOSYN) 09:45: 10:09 [place]back, [place] 3.375 g in 00 :00 ONCE, 1 Medica l NaCl 0.9% dose, On Branch (NS) 50 mL Tue MINI-BAG 05/31/21 at 0445, Administer over 30 Minutes, 50 mL
R anna for Anti-Infec tive: Empiric Therapy for Suspected Infection< br>Empiric Therapy Site: Abdominal< br>Duratio n of therapy: 72 hours FENTanyl PF 2021- No 75ug 75 mcg, Un rustam (SUBLIMAZE 05-31 Slow IV ity o f (PF)) 09:15: 08:14 Push, [place] injection 00 :00 ONCE, 1 Medical 75 mcg dose, On Branch 05/31/21 at 0415, Routine proMETHazin 2021- No 12.5mg 12.5 mg, Univers e 05-31 IV ity of (PHENERGAN) 09:00: 08:02 [place], [place] 12.5 mg in 00 :00 ONCE, 1 Medica l NaCl 0.9% dose, On Branch (NS) 50 mL Tue IV 05/31/21 at piggyback 0400, RACHAEL FENTanyl PF 2021- No 50ug 50 mcg, Un rustam (SUBLIMAZE 05-31 Slow IV ity o f (PF)) 08:00: 06:58 Push, [place] injection 00 :00 ONCE, 1 Medical 50 mcg dose, On Branch Sun05/31/21 at 0300, STAT proMETHazin 2021- No 12.5mg 12.5 mg, Univers e 05-31 IV ity of (PHENERGAN) 07:15: 06:18 [place], [place] 12.5 mg in 00 :00 ONCE, 1 Medica l NaCl 0.9% dose, On Branch (NS) 50 mL Tue IV 05/31/21 at piggyback 0215, RACHAEL NaCl 0.9% 2021- No 1000mL at 999 Uni vers (NS) bolus 05-31 mL/hr, ity of infusion 07:00: 08:45 1,000 mL, [place] 1,000 mL 00 :00 IV Medical Infusion, Branch ONCE, 1 dose, On Sun05/31/21 at 0200, STAT D5W 0.45% 2021- No Intravenou U nivers NaCl 05-31 s, at 100 ity of (1/2NS) 1 L 06:45: 22:05 mL/hr, [place] as + KCL 20 00 :15 CONTINUOUS Medic al mEq , Starting Branch on Sun05/31/21 at 0145, Until Sun05/31/21 at 1705, RACHAEL metoclopram 0 2021- No 10mg 10 mg, Uni vers sonia HCl 05-31 Slow IV ity of (REGLAN) 06:15: 05:34 Push, [place] injection 00 :00 ONCE, 1 Medical 10 mg dose, On Branch Sun05/31/21 at 0115, RACHAEL NaCl 0.9% 0 2021- No 1000mL at 999 Uni vers (NS) bolus 4-12 04-12 mL/hr, ity of infusion 06:00: 06:50 1,000 mL, [place] 1,000 mL 00 :00 IV Medical Infusion, Branch ONCE, 1 dose, On Sun05/31/21 at 0100, RACHAEL Vital Signs Vital Name Observation Time Observation Value Comments Source Heart rate 2021-06-03 16:54:00 115 /min [facility] Body temperature 2021-06-03 16:54:00 37.56 [facility]va [facility] Respiratory rate 2021-06-03 16:54:00 17 /min [facility] Oxygen saturation in 2021-06-03 16:54:00 100 /min [facility] Arterial blood by [facility] [place] Pulse oximetry [place] Systolic blood 2021-06-03 16:54:00 128 mm[Hg] [facility] Diastolic blood 2021-06-03 16:54:00 79 mm[Hg] [facility] Body height 2021-05-31 12:32:00 165.1 cm [facility] Body weight 2021-05-31 12:32:00 104.327 kg [facility] BMI 2021-05-31 12:32:00 38.27 kg/m2 [facility] Procedures Procedure Date / Time Performing Clinician Source Performed BASIC METABOLIC PANEL 2021-06-03 [facility], K, CL, CO2, GLUCOSE, [facility] Med[facility] l Branch BUN, CREATININE, [place]) BASIC METABOLIC PANEL 2021-06-02 17:45:[facility] ([facility], K, CL, CO2, GLUCOSE, [place] [facility] Branch BUN, CREATININE, CA) CREATININE U 24 HR 2021-06-02 15:02:00 Nohemi Palomo [facility] PROTEIN QUANT U/24H 2021-06-02 15:02:00 Nohemi Palomo [facility] MAGNESIUM 2021-06-02 12:45:00 Nohemi Palomo [place] [facility] BASIC METABOLIC PANEL 2021-06-02 12:45:00 Nohemi Palomo [facility] (NA, K, CL, CO2, GLUCOSE, Medica l Branch BUN, CREATININE, CA) PHOSPHORUS 2021-06-01 08:41:00 [facility] 2021-06-01 08:41:00 [facility] BASIC METABOLIC PANEL 2021-06-01 08:41:00 [facility] (NA, K, CL, CO2, GLUCOSE, Medica l Branch BUN, CREATININE, CA) ABORH CONFIRMATION (LAB 2021-05-31 23:06:00 Dania Dixon [facility]) Medical Branch LIPASE 2021-05-31 22:50:00 Monique [facility] MAGNESIUM 2021-05-31 22:50:00 Zack [facility] COMP. METABOLIC PANEL 2021-05-31 22:50[id number] RUBELLA SCREEN IGG 2021-05-31 22:50:00 Dania Dixon [facility] VZV ANTIBODY SCREEN 2021-05-31 22:50:00 Dania Dixon [facility] GALV ONLY - SYPHILIS 2021-05-31 22:50:00 Dania Dixon [facility] IGG/IGM [facility] CBC WITH DIFF 2021-05-31 22:44:00 Monique [facility] HB ABO GROUPING 2021-05-31 22:39:00 Dania Dixon [facility] [place] [facility] US GALL BLADDER 2021-05-31 20:45:45 Monique [facility] HB ECG ROUTINE & RHYTHM 2021-05-31 20:01:18 Monique [facility] STRIP [facility] URINALYSIS 2021-05-31 13:47:00 Zack [facility] URINE CULTURE 2021-05-31 13:47:00 Zack [facility] COVID-19 (ID NOW RAPID 2021-05-31 13:47:00 Ludivina Terry [facility] TESTING) Medical Branch LAB ONLY COVID 2021-05-31 13:47:00 Ludivina Terry [facility] INTERPRETATION Medical Branch PHOSPHORUS 2021-05-31 13:20:00 Monique [facility] Anaid Medical Branch MAGNESIUM 2021-05-31 13:20:00 Carmen [facility] COMP. METABOLIC PANEL 2021-05-31 13:20:00 Carmen Kim [facility] ([id number]) [facility] HEPATITIS B SURFACE 2021-05-31 13:20:00 Dania Dixon [facility] ANTIGEN [facility] HIV 1/2 AG-AB WITH REFLEX 2021-05-31 13:20:00 Dania Dixon [facility] US FIRST 2021-05-31 07:47:57 Abdullahi Gomez [facility] TRIMESTER LESS THAN 14 Medical B ranch WEEKS US GALL BLADDER 2021-05-31 07:38:00 Abdullahi Gomez [facility] HB ECG ROUTINE & RHYTHM 2021-05-31 05:49:54 Abdullahi Gomez [facility] STRIP [facility] Branch LIPASE 2021-05-31 05:17:00 Jason [facility] COMP. METABOLIC PANEL 2021-05-31 05:17:00 Jason Abdullahi [facility] ([id number]) [facility] TOTAL BETA HCG ASSAY 2021-05-31 05:17:00 Abdullahi Gomez [facility] CBC WITH DIFF 2021-05-31 05:17:00 Jason [facility] GLYCOSYLATED HEMOGLOBIN 2021-05-31 05:17:00 Jason Abdullahi [facility] (A1C) [facility] Branch NOTICE OF PRIVACY 2021-05-31 04:35:31 Doctor Juanjo, [facility] FOR 2021-05-31 04:35:00 Doctor Juanjo, [facility] DIAGNOSIS AND TREATMENT [place] [facility] HOSPITAL ADMISSION 2021-05-30 05:01:00 [place] [facility]jo, [facility] [place] [facility] Encounters Start End Encounter Admission Attending Care Care Encounter Source Date/Time Date/Time Type Type Clinicians Facility Department ID 2021-05-30 2021-06-03 [facility] Abdullahi Gomez [id number] Univers 23:49:00 14:41:00 Encounter Ludivina Terry [id number] [place]e as [id number] [facility] 135 Branch 2021-05-30 2021-06-03 Inpatient X SOPHY LUDIVINA [facility] 1 [id number] Univers 23:49:00 14:41:00 LUDIVINA TERRY jorje [facility] Results Test Description Test Time Test Comments Results Result Comments Source BASIC METABOLIC PANEL (NA, K, CL, CO2, GLUCOSE, BUN, 2021-05 17:54:17 CREATININE, [place]) Test Item Value Reference Range Interpretation Comme nts NA (test code = 3641633200) 135 mmol/L 135-145 K (test code = 0491130992) 3.4 mmol/L 3.5-5.0 L CL (test code = 3067995066) 105 mmol/L 98-108 CO2 TOTAL (test code = 2521964287) 22 mmol/L 23-31 L AGAP (test code = 4454232748) 2-16 BUN (test code = 1584349809) 4 mg/dL 7-23 L GLUCOSE (test code = 6537938727) 81 mg/dL 70-110 CREATININE (test code = 0.38 mg/dL 0.50-1.04 L 3738019522) CALCIUM (test code = 8830372638) 8.1 mg/dL 8.6-10.6 L eGFR (test code = 7349396467) mL/min/1.73m2 RUMA (test code = RUMA) Association of Glomerular Filtration Rate (GFR) and Staging of Kidney Disease* + +-------- + ------+| GFR (mL/min/1.73 m2) ?| With Kidney Damage ?| ?Without Kidney Damage+ +-- + +| ?>90 ?| ?Stage one ?| ? Normal ?+ +------- + -------+| ?60-89 ?| ?Stage two ?| ? Decreased GFR ? + +-------- + ------+| ?30-59 ?| ?Stage three ?| ? Stage three ? + +-------- + ------+| ?15-29 ?| ?Stage four ? | ? Stage four ?+ +------- + -------+| ?<15 (or dialysis) ? ?| ?Stage five ? | ? Stage five ?+ +------- + -------+ *Each stage assumes the associated GFR level has been in effect for at least three months. ?Stages 1 to 5, with or without kidney disease, indicate chronic kidney disease. Notes: Determination of stages one and two (with eGFR >59mL/min/1.73 m2) requires estimation of kidney damage for at least three months as defined by structural or functional abnormalities of the kidney, manifested by either:Pathological abnormalities or Markers of kidney damage (including abnormalities in the composition of the blood or urine or abnormalities in imaging tests). Lab Interpretation (test code = Abnormal 65894-2) [facility] METABOLIC PANEL (NA, K, CL, CO2, GLUCOSE, BUN, CREATININE, CA)2021-06-02 18:50:23 Test Item Value Reference Range Interpretation Comments NA (test code = 130 mmol/L 135-145 L 0380741781) K (test code = 2.8 mmol/L 3.5-5.0 LL 1431983958) CL (test code = 98 mmol/L 98-108 9674799538) CO2 TOTAL (test code = 27 mmol/L 23-31 3525739804) AGAP (test code = 2-16 8255266325) BUN (test code = 4 mg/dL 7-23 L 0468943315) GLUCOSE (test code = 92 mg/dL 70-110 2437466984) CREATININE (test code = 0.36 mg/dL 0.50-1.04 L 3440687283) CALCIUM (test code = 8.2 mg/dL 8.6-10.6 L 6884689126) eGFR (test code = mL/min/1.73m2 8730200501) RUMA (test code = RUMA) Association of Glomerular Filtration Rate (GFR) and Staging of Kidney Disease* + --+ --+ ------+| GFR (mL/min/1.73 m2) ?| With Kidney Damage ?| ?Without Kidney Damage+ --------+ --------+ +| ?>90 ?| ?Stage one ?| ? Normal ?+ ---+ ---+ -------+| ?60-89 ?| ?Stage two ?| ? Decreased GFR ? + --+ --+ ------+| ?30-59 ?| ?Stage three ?| ? Stage three ? + --+ --+ ------+| ?15-29 ?| ?Stage four ? | ? Stage four ?+ ---+ ---+ -------+| ?<15 (or dialysis) ? ?| ?Stage five ? | ? Stage five ?+ ---+ ---+ -------+ *Each stage assumes the associated GFR level has been in effect for at least three months. ?Stages 1 to 5, with or without kidney disease, indicate chronic kidney disease. Notes: Determination of stages one and two (with eGFR >59mL/min/1.73 m2) requires estimation of kidney damage for at least three months as defined by structural or functional abnormalities of the kidney, manifested by either:Pathological abnormalities or Markers of kidney damage (including abnormalities in the composition of the blood or urine or abnormalities in imaging tests). Lab Interpretation Abnormal (test code = 17223-1) [facility] METABOLIC PANEL (NA, K, CL, CO2, GLUCOSE, BUN, CREATININE, CA)2021-06-02 14:06:06 Test Item Value Reference Range Interpretation Comments NA (test code = 133 mmol/L 135-145 L 9650934463) K (test code = 3.0 mmol/L 3.5-5.0 L 7572618857) CL (test code = 98 mmol/L 98-108 0194630336) CO2 TOTAL (test code = 28 mmol/L 23-31 9674574229) AGAP (test code = 2-16 1672985377) BUN (test code = 6 mg/dL 7-23 L 1715575139) GLUCOSE (test code = 93 mg/dL 70-110 3146498317) CREATININE (test code = 0.45 mg/dL 0.50-1.04 L 3538765098) CALCIUM (test code = 8.2 mg/dL 8.6-10.6 L 7731890373) eGFR (test code = mL/min/1.73m2 9183779421) RUMA (test code = RUMA) Association of Glomerular Filtration Rate (GFR) and Staging of Kidney Disease* + --+ --+ ------+| GFR (mL/min/1.73 m2) ?| With Kidney Damage ?| ?Without Kidney Damage+ --------+ --------+ +| ?>90 ?| ?Stage one ?| ? Normal ?+ ---+ ---+ -------+| ?60-89 ?| ?Stage two ?| ? Decreased GFR ? + --+ --+ ------+| ?30-59 ?| ?Stage three ?| ? Stage three ? + --+ --+ ------+| ?15-29 ?| ?Stage four ? | ? Stage four ?+ ---+ ---+ -------+| ?<15 (or dialysis) ? ?| ?Stage five ? | ? Stage five ?+ ---+ ---+ -------+ *Each stage assumes the associated GFR level has been in effect for at least three months. ?Stages 1 to 5, with or without kidney disease, indicate chronic kidney disease. Notes: Determination of stages one and two (with eGFR >59mL/min/1.73 m2) requires estimation of kidney damage for at least three months as defined by structural or functional abnormalities of the kidney, manifested by either:Pathological abnormalities or Markers of kidney damage (including abnormalities in the composition of the blood or urine or abnormalities in imaging tests). Lab Interpretation Abnormal (test code = 10888-9) [facility] [place] [facility] ResourcesMAGNESIUM2022-04-14 14:06:06 Test Item Value Reference Range Interpretation Comments MAGNESIUM (test code = 3496613446) 2.0 mg/dL 1.7-2.4 Lab Interpretation (test code = Normal 52054-7) [facility] ResourcesVZV ANTIBODY [id number] 16:21:33 Test Item Value Reference Range Interpretation Comments VZV IgG antibody Positive Negative (test code = 82030-7) RUMA (test code = RUMA) Positive - Indicates the patient was exposed to VZV through infection or vaccination.Negative - Indicates the patient could be susceptible to VZV infection.Equivocal - A second specimen should be sent for testing. [facility] ResourcesRUBELLA SCREEN [id number] 16:21:33 Test Item Value Reference Range Interpretation Comments Rubella screen IgG Positive Negative (test code = 8932629027) RUMA (test code = RUMA) Positive - Indicates the patient was exposed to Rubella through infection or vaccination.Negative - Indicates the patient could be susceptible to Rubella infection.Equivocal - A second specimen should be sent. [facility] ResourcesGALV ONLY - SYPHILIS [id number] 16:20:53 Test Item Value Reference Range Interpretation Comments Syphilis IgG/IgM (test Non-reactive Non-reactive code = 50347-9) RUMA (test code = RUMA) Non-reactive - No serologic evidence of T. pallidum infection. Cannot exclude incubating or early syphilis. Submit a second specimen in 2-4 weeks if syphilis is clinically suspected. Equivocal - Further testing to follow. Reactive - Further testing to follow. Lab Interpretation (test Normal code = 92781-6) [facility] (NA, K, CL, CO2, GLUCOSE, BUN, CREATININE, CA)2021-06-01 09:35:01 Test Item Value Reference Range Interpretation Comments NA (test code = 126 mmol/L 135-145 L 7235120757) K (test code = 2.1 mmol/L 3.5-5.0 LL 8938108105) CL (test code = 87 mmol/L 98-108 L 0765734561) CO2 TOTAL (test code = 34 mmol/L 23-31 H 1729090235) AGAP (test code = 2-16 2427258557) BUN (test code = 10 mg/dL 7-23 4025876316) GLUCOSE (test code = 85 mg/dL 70-110 3062932338) CREATININE (test code = 0.59 mg/dL 0.50-1.04 9421076264) CALCIUM (test code = 7.9 mg/dL 8.6-10.6 L 7207270488) eGFR (test code = mL/min/1.73m2 1803228447) RUMA (test code = RUMA) Association of Glomerular Filtration Rate (GFR) and Staging of Kidney Disease* + --+ --+ ------+| GFR (mL/min/1.73 m2) ?| With Kidney Damage ?| ?Without Kidney Damage+ --------+ --------+ +| ?>90 ?| ?Stage one ?| ? Normal ?+ ---+ ---+ -------+| ?60-89 ?| ?Stage two ?| ? Decreased GFR ? + --+ --+ ------+| ?30-59 ?| ?Stage three ?| ? Stage three ? + --+ --+ ------+| ?15-29 ?| ?Stage four ? | ? Stage four ?+ ---+ ---+ -------+| ?<15 (or dialysis) ? ?| ?Stage five ? | ? Stage five ?+ ---+ ---+ -------+ *Each stage assumes the associated GFR level has been in effect for at least three months. ?Stages 1 to 5, with or without kidney disease, indicate chronic kidney disease. Notes: Determination of stages one and two (with eGFR >59mL/min/1.73 m2) requires estimation of kidney damage for at least three months as defined by structural or functional abnormalities of the kidney, manifested by either:Pathological abnormalities or Markers of kidney damage (including abnormalities in the composition of the blood or urine or abnormalities in imaging tests). Lab Interpretation Abnormal (test code = 95018-9) [facility] ResourcesMAG[facility]IUM2022-04-13 09:27:13 Test Item Value Reference Range Interpretation Comments MAGNESIUM (test code = 6004069462) 2.2 mg/dL 1.7-2.4 Lab Interpretation (test code = Normal 95161-4) [facility] ResourcesPHOSPHORUS2022-04-13 09:27:13 Test Item Value Reference Range Interpretation Comments PHOSPHORUS (test code = 5768213685) 2.3 mg/dL 2.5-5.0 L Lab Interpretation (test code = Abnormal 66647-2) [facility] ResourcesCOMP. METABOLIC PANEL (60060)2021-05-31 23:57:56 Test Item Value Reference Range Interpretation Comments NA (test code = 126 mmol/L 135-145 L 5870010168) K (test code = 2.3 mmol/L 3.5-5.0 LL Slight 3083592636) hemolysis CL (test code = 83 mmol/L 98-108 L 3889063201) CO2 TOTAL (test code 32 mmol/L 23-31 H = 6062088269) AGAP (test code = 2-16 4655415206) BUN (test code = 13 mg/dL 7-23 Slight 9508046588) hemolysis GLUCOSE (test code = 89 mg/dL 70-110 9329005750) CREATININE (test code 0.49 mg/dL 0.50-1.04 L = 7945539834) TOTAL BILI (test code 1.3 mg/dL 0.1-1.1 H = 5952179921) CALCIUM (test code = 8.0 mg/dL 8.6-10.6 L 9554237135) T PROTEIN (test code 6.2 g/dL 6.3-8.2 L = 0621214344) ALBUMIN (test code = 3.6 g/dL 3.5-5.0 4059991169) ALK PHOS (test code = 52 U/L 34-122 Slight 1910562901) hemolysis ALTv (test code = 45 U/L 5-35 H 1742-6) AST(SGOT) (test code 33 U/L 13-40 Slight = 3244781978) hemolysis eGFR (test code = mL/min/1.73m2 8159165947) RUMA (test code = RUMA) Association of Glomerular Filtration Rate (GFR) and Staging of Kidney Disease* + -----+ --------+ +| GFR (mL/min/1.73 m2) ?| With Kidney Damage ?| ?Without Kidney Damage+ +------- +---- --+| ?>90 ?| ?Stage one ?| ? Normal ?+ ------+ ---------+--------- +| ?60-89 ?| ?Stage two ?| ? Decreased GFR ? + -----+ --------+ +| ?30-59 ?| ?Stage three ?| ? Stage three ? + -----+ --------+ +| ?15-29 ?| ?Stage four ? | ? Stage four ?+ ------+ ---------+--------- +| ?<15 (or dialysis) ? ?| ?Stage five ? | ? Stage five ?+ ------+ ---------+--------- + *Each stage assumes the associated GFR level has been in effect for at least three months. ?Stages 1 to 5, with or without kidney disease, indicate chronic kidney disease. Notes: Determination of stages one and two (with eGFR >59mL/min/1.73 m2) requires estimation of kidney damage for at least three months as defined by structural or functional abnormalities of the kidney, manifested by either:Pathological abnormalities or Markers of kidney damage (including abnormalities in the composition of the blood or urine or abnormalities in imaging tests). Lab Interpretation Abnormal (test code = 87772-9) [facility] ResourcesMAGNESIUM2022-04-12 23:56:29 Test Item Value Reference Range Interpretation Comments MAGNESIUM (test code = 4438680636) 2.1 mg/dL 1.7-2.4 Lab Interpretation (test code = Normal 89064-1) [facility] ResourcesLIPASE2022-04-12 23:56:29 Test Item Value Reference Range Interpretation Comments LIPASE (test code = 7672052678) 127 U/L 0-220 Lab Interpretation (test code = Normal 55287-6) [facility] ResourcesType and Screen - ONCE [id number] 23:23:54 Test Item Value Reference Range Interpretation Comments ABO & RH (test code O POSITIVE Performe d at [facility] = 20) Laboratory Serv [facility] [place] [address] s [id number] Free: [phone] A No. [id number] IAT (test code = Negative Performed a t [facility] 1185) Laboratory Serv [facility] [address] [place] [address] s [id number] Free: [phone] A No. [id number] [facility] ResourcesABORH Confirmation (Lab Only)2021-05-31 23:23:54 Test Item Value Reference Range Interpretation Comments ABO & RH (test code O Positive Performe d at [facility] = 20) Laboratory Serv [facility] [address] [place] [address] s [id number] Free: [phone] A No. [id number] [facility] ResourcesCBC WITH [id number] 23:17:00 Test Item Value Reference Range Interpretation Comments WBC (test code = See_Comment [Automated 6690-2) message] The sy stem which generated this result transmitted reference range : 4.30 - 11.10 10*3/?L. The reference range was not used to interpret this result as normal/abnormal . RBC (test code = See_Comment L [Automated 789-8) message] The sy stem which generated this result transmitted reference range : 3.93 - 5.25 10*6/?L. The reference range was not used to interpret this result as normal/abnormal . HGB (test code = 12.8 g/dL 11.6-15.0 718-7) HCT (test code = 35.7 % 35.7-45.2 4544-3) MCV (test code = 91.8 fL 80.6-95.5 787-2) MCH (test code = 32.9 pg 25.9-32.8 H 785-6) MCHC (test code = 35.9 g/dL 31.6-35.1 H 786-4) RDW-SD (test code = 40.1 fL 39.0-49.9 56451-0) RDW-CV (test code = 11.9 % 12.0-15.5 L 788-0) PLT (test code = See_Comment [Automated 777-3) message] The sy stem which generated this result transmitted reference range : 166 - 358 10*3/ ?L. The reference r andriy was not used to interpret this result as normal/abnormal . MPV (test code = 9.4 fL 9.5-12.9 L 21973-6) NRBC/100 WBC (test See_Comment [Automat ed code = 3357907912) message] The system which generated this result transmitted reference range : 0.0 - 10.0 /100 WBCs. The refer ence range was not u sed to interpret th is result as normal/abnormal . NRBC x10^3 (test code <0.01 See_Comment [Auto mated = 3166077024) message] The s ystem which generated this result transmitted reference range : 10*3/?L. The reference range was not used to interpret this result as normal/abnormal . GRAN MAT (NEUT) % 65.5 % (test code = 770-8) IMM GRAN % (test code 0.50 % = 6595099486) LYMPH % (test code = 24.6 % 736-9) MONO % (test code = 7.9 % 5905-5) EOS % (test code = 1.3 % 713-8) BASO % (test code = 0.2 % 706-2) GRAN MAT x10^3(ANC) 6.82 10*3/uL 1.88-7.09 (test code = 7292712165) IMM GRAN x10^3 (test 0.05 10*3/uL 0.00-0.06 code = 5173452771) LYMPH x10^3 (test code 2.56 10*3/uL 1.32-3.29 = 731-0) MONO x10^3 (test code 0.82 10*3/uL 0.33-0.92 = 742-7) EOS x10^3 (test code = 0.13 10*3/uL 0.03-0.39 711-2) BASO x10^3 (test code <0.03 0.01-0.07 = 704-7) Lab Interpretation Abnormal (test code = 66451-3) [facility] ResourcesHIV 1/2 AG-AB WITH [id number] 20:00:29 Test Item Value Reference Range Interpretation Comments HIV Negative Negative Semi-quantitative (test code = 66070-1) RUMA (test code = Non-reactive for HIV-1 RUMA) antigen and HIV-1/HIV-2 antibodies. ?No laboratory evidence of HIV infection. ?Repeat in 2-4 weeks if acute HIV infection is suspected. [facility] ResourcesHEPATITIS B SURFACE [id number] 16:36:40 Test Item Value Reference Range Interpretation Comments HBsAg Semi-Quantitative (test code = Negative Negative 5195-3) [facility] ResourcesPHOSPHORUS2022-04-12 16:01:55 Test Item Value Reference Range Interpretation Comments PHOSPHORUS (test code = 3644185168) 3.3 mg/dL 2.5-5.0 Lab Interpretation (test code = Normal 09097-4) [facility] ResourcesCOMP. METABOLIC PANEL (12299)2021-05-31 14:52:05 Test Item Value Reference Range Interpretation Comments NA (test code = 128 mmol/L 135-145 L 9560686181) K (test code = 2.4 mmol/L 3.5-5.0 LL 8325234603) CL (test code = 84 mmol/L 98-108 L 1598816544) CO2 TOTAL (test code = 32 mmol/L 23-31 H 3459102232) AGAP (test code = 2-16 1838552359) BUN (test code = 17 mg/dL 7-23 6369390809) GLUCOSE (test code = 118 mg/dL 70-110 H 7844398952) CREATININE (test code = 0.64 mg/dL 0.50-1.04 7879487849) TOTAL BILI (test code = 1.4 mg/dL 0.1-1.1 H 7718035454) CALCIUM (test code = 8.4 mg/dL 8.6-10.6 L 7877690177) T PROTEIN (test code = 6.9 g/dL 6.3-8.2 6760056751) ALBUMIN (test code = 4.2 g/dL 3.5-5.0 1142917155) ALK PHOS (test code = 59 U/L 34-122 6054549727) ALTv (test code = 56 U/L 5-35 H 1742-6) AST(SGOT) (test code = 36 U/L 13-40 5625338082) eGFR (test code = mL/min/1.73m2 0753522904) RUMA (test code = RUMA) Association of Glomerular Filtration Rate (GFR) and Staging of Kidney Disease* + --+ --+ ------+| GFR (mL/min/1.73 m2) ?| With Kidney Damage ?| ?Without Kidney Damage+ --------+ --------+ +| ?>90 ?| ?Stage one ?| ? Normal ?+ ---+ ---+ -------+| ?60-89 ?| ?Stage two ?| ? Decreased GFR ? + --+ --+ ------+| ?30-59 ?| ?Stage three ?| ? Stage three ? + --+ --+ ------+| ?15-29 ?| ?Stage four ? | ? Stage four ?+ ---+ ---+ -------+| ?<15 (or dialysis) ? ?| ?Stage five ? | ? Stage five ?+ ---+ ---+ -------+ *Each stage assumes the associated GFR level has been in effect for at least three months. ?Stages 1 to 5, with or without kidney disease, indicate chronic kidney disease. Notes: Determination of stages one and two (with eGFR >59mL/min/1.73 m2) requires estimation of kidney damage for at least three months as defined by structural or functional abnormalities of the kidney, manifested by either:Pathological abnormalities or Markers of kidney damage (including abnormalities in the composition of the blood or urine or abnormalities in imaging tests). Lab Interpretation Abnormal (test code = 20474-4) [facility] ResourcesMAGNESIUM2022-04-12 14:28:41 Test Item Value Reference Range Interpretation Comments MAGNESIUM (test code = 8712929789) 2.2 mg/dL 1.7-2.4 Lab Interpretation (test code = Normal 39128-1) [facility]2021-05-31 06:22:56 Test Item Value Reference Range Interpretation Comments BETA HCG (test See_Comment [Automated m essage] code = The system [employer] h 2532447457) generated this result transmit sarah reference range : Non- fe male and male patien ts: <5 mIU/mL. The reference range was not used to interpret this result as normal/abnormal . RUMA (test code Gestational Age ? ? = RUMA) ?Range (mIU/mL) 1-10 ?Weeks ?28-70950215-53 Weeks ?18472-53124949-20 Weeks ?4734-44737294-85 Weeks ?5145-068310 Biotin has been reported to cause a negative bias, interpret results relative to patient's use of biotin. [facility] ResourcesGLYCOSYLATED HEMOGLOBIN (A1C)2021-05-31 05:57:11 Test Item Value Reference Range Interpretation Comments HGB A1C (test code = 5.7 % 4.0-5.7 4548-4) RUMA (test code = RUMA) Reference RangesNormal: <5.7%Prediabetes: 5.7 - 6.4%Diabetes: > 6.5% Lab Interpretation (test Normal code = 58893-0) [facility] ResourcesCOMP. METABOLIC PANEL (67114)2021-05-31 05:41:13 Test Item Value Reference Range Interpretation Comments NA (test code = 126 mmol/L 135-145 L 2460764951) K (test code = 2.4 mmol/L 3.5-5.0 LL 9446729669) CL (test code = 74 mmol/L 98-108 L 2865128143) CO2 TOTAL (test code = 37 mmol/L 23-31 H 6540065072) AGAP (test code = 2-16 8338853213) BUN (test code = 22 mg/dL 7-23 7982015323) GLUCOSE (test code = 127 mg/dL 70-110 H 6460259795) CREATININE (test code = 0.88 mg/dL 0.50-1.04 2555150486) TOTAL BILI (test code = 1.7 mg/dL 0.1-1.1 H 8903918657) CALCIUM (test code = 9.4 mg/dL 8.6-10.6 7750770652) T PROTEIN (test code = 8.1 g/dL 6.3-8.2 6939247157) ALBUMIN (test code = 4.8 g/dL 3.5-5.0 6726639360) ALK PHOS (test code = 80 U/L 34-122 2604821774) ALTv (test code = 66 U/L 5-35 H 1742-6) AST(SGOT) (test code = 40 U/L 13-40 2130281619) eGFR (test code = mL/min/1.73m2 1415957411) RUMA (test code = RUMA) Association of Glomerular Filtration Rate (GFR) and Staging of Kidney Disease* + --+ --+ ------+| GFR (mL/min/1.73 m2) ?| With Kidney Damage ?| ?Without Kidney Damage+ --------+ --------+ +| ?>90 ?| ?Stage one ?| ? Normal ?+ ---+ ---+ -------+| ?60-89 ?| ?Stage two ?| ? Decreased GFR ? + --+ --+ ------+| ?30-59 ?| ?Stage three ?| ? Stage three ? + --+ --+ ------+| ?15-29 ?| ?Stage four ? | ? Stage four ?+ ---+ ---+ -------+| ?<15 (or dialysis) ? ?| ?Stage five ? | ? Stage five ?+ ---+ ---+ -------+ *Each stage assumes the associated GFR level has been in effect for at least three months. ?Stages 1 to 5, with or without kidney disease, indicate chronic kidney disease. Notes: Determination of stages one and two (with eGFR >59mL/min/1.73 m2) requires estimation of kidney damage for at least three months as defined by structural or functional abnormalities of the kidney, manifested by either:Pathological abnormalities or Markers of kidney damage (including abnormalities in the composition of the blood or urine or abnormalities in imaging tests). Lab Interpretation Abnormal (test code = 40997-8) [facility] ResourcesLIPASE2022-04-12 05:38:41 Test Item Value Reference Range Interpretation Comments LIPASE (test code = 0192225513) 89 U/L 0-220 Lab Interpretation (test code = Normal 90384-3) [facility] WITH [id number] 05:26:16 Test Item Value Reference Range Interpretation Comments WBC (test code = See_Comment H [Automated 6690-2) message] The sy stem which generated this result transmitted reference range : 4.30 - 11.10 10*3/?L. The reference range was not used to interpret this result as normal/abnormal . RBC (test code = See_Comment [Automated 159-8) message] The sy stem which generated this result transmitted reference range : 3.93 - 5.25 10*6/?L. The reference range was not used to interpret this result as normal/abnormal . HGB (test code = 16.7 g/dL 11.6-15.0 H 718-7) HCT (test code = 46.3 % 35.7-45.2 H 4544-3) MCV (test code = 91.0 fL 80.6-95.5 787-2) MCH (test code = 32.8 pg 25.9-32.8 785-6) MCHC (test code = 36.1 g/dL 31.6-35.1 H 786-4) RDW-SD (test code = 39.1 fL 39.0-49.9 91644-7) RDW-CV (test code = 11.8 % 12.0-15.5 L 788-0) PLT (test code = See_Comment [Automated 777-3) message] The sy stem which generated this result transmitted reference range : 166 - 358 10*3/ ?L. The reference r andriy was not used to interpret this result as normal/abnormal . MPV (test code = 9.4 fL 9.5-12.9 L 35449-5) NRBC/100 WBC (test See_Comment [Automat ed code = 6207008242) message] The system which generated this result transmitted reference range : 0.0 - 10.0 /100 WBCs. The refer ence range was not u sed to interpret th is result as normal/abnormal . NRBC x10^3 (test code <0.01 See_Comment [Auto mated = 2980167630) message] The s ystem which generated this result transmitted reference range : 10*3/?L. The reference range was not used to interpret this result as normal/abnormal . GRAN MAT (NEUT) % 72.9 % (test code = 770-8) IMM GRAN % (test code 0.50 % = 9298488611) LYMPH % (test code = 18.1 % 736-9) MONO % (test code = 7.5 % 5905-5) EOS % (test code = 0.7 % 713-8) BASO % (test code = 0.3 % 706-2) GRAN MAT x10^3(ANC) 8.73 10*3/uL 1.88-7.09 H (test code = 1270408614) IMM GRAN x10^3 (test 0.06 10*3/uL 0.00-0.06 code = 3073045918) LYMPH x10^3 (test code 2.17 10*3/uL 1.32-3.29 = 731-0) MONO x10^3 (test code 0.90 10*3/uL 0.33-0.92 = 742-7) EOS x10^3 (test code = 0.08 10*3/uL 0.03-0.39 711-2) BASO x10^3 (test code 0.03 10*3/uL 0.01-0.07 = 704-7) Lab Interpretation Abnormal (test code = 80477-3) [facility]"
--- NOTE | 2021-06-04 04:45 | EDPHYS ---
Physician Documentation [facility] Name: Robin Bernard Age: 25 yrs Sex: Female : 1995 Arrival Date: 06/04/2021 Time: 03:56 Bed 20 Private MD: ED Physician Robert Wolf HPI: 06/04 04:36 This 25 yrs old Black Female presents to ER via Wheelchair with complaints of lower abd rn pain. 04:37 The patient presents with abdominal pain in the lower abdomen. Onset: The rn symptoms/episode began/occurred today. The symptoms do not radiate. Associated signs and symptoms: Pertinent positives: nausea and vomiting, diarrhea, Pertinent negatives: fever, vaginal discharge, vomiting blood. Modifying factors: The symptoms are alleviated by tylenol. the symptoms are aggravated by nothing. Severity of pain: At its worst the pain was moderate in the emergency department the pain has improved. The patient has not experienced similar symptoms in the past. The patient has been recently seen by a physician:. Pt reports lower abd pain, cramping, just discharged yesterday from [facility] for hyperemesis gravidarum admission, states 13 weeks preg, just had neg u/s of appendix and gallbladder. Denies vaginal bleeding or leakage of fluid. No trauma. Reports took tylenol and now feels much better, was thinking of not signing in but family wanted to make sure baby was ok. . EX CHEF: 04:40 Verified ag7 Historical: - Allergies: 04:25 No Known Allergies; vc1 - Home Meds: 04:25 None [Active]; vc1 - PMHx: 04:25 None; vc1 - PSHx: 04:25 None; vc1 - Immunization history:: Adult Immunizations up to date, Client reports having NOT received the Covid vaccine. Flu vaccine status is unknown. - Social history:: Smoking status: Patient reports the use of cigarette tobacco products, Patient denies any tobacco usage or history of. - Family history:: not pertinent. - Hospitalizations: : Patient was recently seen at. ROS: 04:40 Constitutional: Negative for fever, chills, and weight loss, Eyes: Negative for injury, rn pain, redness, and discharge, Neck: Negative for injury, pain, and swelling, Cardiovascular: Negative for chest pain, palpitations, and edema, Respiratory: Negative for shortness of breath, cough, wheezing, and pleuritic chest pain, Abdomen/GI: + abd pain, + nausea, + diarrhea Back: Negative for injury and pain, : Negative for injury, bleeding, discharge, and swelling, MS/Extremity: Negative for injury and deformity, Skin: Negative for injury, rash, and discoloration, Neuro: Negative for headache, weakness, numbness, tingling, and seizure. Exam: 04:40 Constitutional: This is a well developed, well nourished patient who is awake, alert, rn and in no acute distress. Sitting upright, smiling, joking. Cardiovascular: Tachycardic, regular. No pulse deficits. Respiratory: No increased work of breathing, no retractions or nasal flaring. Abdomen/GI: soft, mild suprapubic tenderness, no rebound, neg borja, neg mcburney's. Skin: Warm, dry with normal turgor. Normal color with no rashes, no lesions, and no evidence of cellulitis. Vital Signs: 04:15 BP 112 / 72; Pulse 118; Resp 20; Temp 98.3(O); Pulse Ox 99% on R/A; Weight 110.22 kg; vc1 Height 5 ft. 5 in. (165.10 cm); Pain 10/10; 04:30 BP 122 / 71; Pulse 117; Resp 20; Pulse Ox 100% ; vc1 04:40 BP 124 / 73; Pulse 113; Resp 20; Pulse Ox 100% ; vc1 04:15 Body Mass Index 40.44 (110.22 kg, 165.10 cm) vc1 Procedures: 04:40 Ultrasound: Type: OB, performed by the emergency department physician, Bedside u/s rn performed by Dr. Wolf, FHTS 153, video taken by mother, good movement, no abd free fluid. . MDM: 03:56 Patient medically screened. rn 04:40 Differential diagnosis: non-specific abd pain. Data reviewed: vital signs, nurses rn notes, radiologic studies, and as a result, I will discharge patient. Counseling: I had a detailed discussion with the patient and/or guardian regarding: the historical points, exam findings, and any diagnostic results supporting the discharge/admit diagnosis, radiology results, the need for outpatient follow up, to return to the emergency department if symptoms worsen or persist or if there are any questions or concerns that arise at home. Response to treatment: the patient's symptoms have markedly improved after treatment, and as a result, I will discharge patient. Special discussion: Based on the patient's Hx, exam, and Dx evaluation, there is no indication for emergent surgery or inpatient Tx. It is understood by the patient/guardian that if the Sx's persist or worsen they need to return immediately for re-evaluation. I discussed with the patient/guardian in detail that at this point there is no indication for admission to the hospital. It is understood, however, that if the symptoms persist or worsen the patient needs to return immediately for re-evaluation. ED course: Pt already markedly improved at arrival, wanted to go home, no u/s tech here to u/s baby so I performed bedside u/s and showed all images to mother, which is all she wanted. Baby looks good, no vaginal bleeding or leakage of fluid. Pt happy. Just had neg u/s of gallbladder and appendix, afebrile, she states will f/u with her OB and return precautions given/understood.. Administered Medications: No medications were administered Disposition Summary: 06/04/21 04:44 Discharge Ordered Location: Home rn Problem: new rn Symptoms: have improved rn Condition: Stable rn Diagnosis - Lower abdominal pain, unspecified rn - Diarrhea, unspecified rn Followup: rn - With: Private Physician - When: 1 - 2 days - Reason: Recheck today's complaints, Re-evaluation by your physician Discharge Instructions: - Discharge Summary Sheet rn - Abdominal Pain, Adult rn - Abdominal Pain During rn - Diarrhea, Adult rn Forms: - Medication Reconciliation Form rn - Thank You Letter rn - Antibiotic diffusion 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
--- NOTE | 2021-06-04 04:45 | ER ---
Nurse's Notes [facility] Name: Robin Bernard Age: 25 yrs Sex: Female : 1995 Arrival Date: 06/04/2021 Time: 03:56 Bed 20 Private MD: Diagnosis: Lower abdominal pain, unspecified;Diarrhea, unspecified Presentation: 06/04 04:20 Chief complaint: Patient states: "I have had diarrhea and been throwing up and I think vc1 it caused me to pull a muscle in my private area, I am 12 weeks 3 days and just want to make sure my baby is ok. I spent 4 days in the hospital last week. I have Hyperemesis so I was really dehydrated.". 04:24 Coronavirus screen: Vaccine status: Patient reports being unvaccinated. At this time, vc1 the client does not indicate any symptoms associated with coronavirus-19. Ebola Screen: No symptoms or risks identified at this time. Initial Sepsis Screen: Does the patient meet any 2 criteria? HR > 90 bpm. No. Patient's initial sepsis screen is negative. Does the patient have a suspected source of infection? No. Patient's initial sepsis screen is negative. Risk Assessment: Do you want to hurt yourself or someone else? Patient reports no desire to harm self or others. Onset of symptoms was June 03, 2021. 04:24 Method Of Arrival: Wheelchair vc1 04:24 Acuity: BOZENA 4 vc1 Triage Assessment: 04:26 General: Appears in no apparent distress. uncomfortable, obese, Behavior is agitated. vc1 Pain: Complains of pain in groin and suprapubic area Pain radiates to buttocks Pain currently is 10 out of 10 on a pain scale. Quality of pain is described as shooting. EENT: No deficits noted. Neuro: Level of Consciousness is awake, alert, obeys commands, Oriented to person, place, time, situation, Appropriate for age. Cardiovascular: No deficits noted. Respiratory: No deficits noted. : Reports pain in suprapubic area. 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 Flu vaccine status is unknown. - Social history:: Smoking status: Patient reports the use of cigarette tobacco products, Patient denies any tobacco usage or history of. - Family history:: not pertinent. - Hospitalizations: : Patient was recently seen at. Screenin:29 Abuse screen: Denies threats or abuse. Nutritional screening: No deficits noted. ag7 Tuberculosis screening: No symptoms or risk factors identified. Fall Risk No fall in past 12 months (0 pts). No secondary diagnosis (0 pts). No IV (0 pts). Ambulatory Aid- None/Bed Rest/Nurse Assist (0 pts). Gait- Normal/Bed Rest/Wheelchair (0 pts) Mental Status- Oriented to own ability (0 pts). Total Carroll Fall Scale indicates No Risk (0-24 pts). Assessment: 04:22 General: Appears in no apparent distress. Behavior is calm, cooperative, appropriate ag7 for age. Pain: Complains of pain in groin Pain does not radiate. Pain currently is 10 out of 10 on a pain scale. Quality of pain is described as sharp, Pain began suddenly, Is continuous. Neuro: Level of Consciousness is awake, alert, obeys commands, Oriented to person, place, time, situation, Appropriate for age. Cardiovascular: Heart tones S1 S2 present. Respiratory: Airway is patent Trachea midline Respiratory effort is even, unlabored, Respiratory pattern is regular, symmetrical, Breath sounds are clear bilaterally. GI: Reports nausea, vomiting, Patient currently denies denies vaginal bleeding. Vital Signs: 04:15 BP 112 / 72; Pulse 118; Resp 20; Temp 98.3(O); Pulse Ox 99% on R/A; Weight 110.22 kg; vc1 Height 5 ft. 5 in. (165.10 cm); Pain 10/10; 04:30 BP 122 / 71; Pulse 117; Resp 20; Pulse Ox 100% ; vc1 04:40 BP 124 / 73; Pulse 113; Resp 20; Pulse Ox 100% ; vc1 04:15 Body Mass Index 40.44 (110.22 kg, 165.10 cm) vc1 ED Course: 03:56 Patient arrived in ED. bp1 03:56 Robert Wolf MD is Attending Physician. rn 04:22 Zunilda Hardwick, RN is Primary Nurse. ag7 04:25 Triage completed. vc1 04:26 Arm band placed on right wrist. Patient placed in an exam room, on cardiac nurse practitioner, on vc1 pulse oximetry. 04:29 Arm band placed on. ag7 04:29 Patient has correct armband on for positive identification. Bed in low position. Call ag7 light in reach. 04:49 No provider procedures requiring assistance completed. ag7 04:50 Patient did not have IV access during this emergency room visit. ag7 Administered Medications: No medications were administered Outcome: 04:44 Discharge ordered by . rn 04:50 Discharged to home ambulatory. ag7 04:50 Condition: stable 04:50 Discharge instructions given to patient, Instructed on discharge instructions, follow up and referral plans. Demonstrated understanding of instructions, follow-up care. 04:50 Patient left the ED. ag7 Signatures: Robert Wolf MD MD rn [place], Brittany bp1 Calcote, Vanessa, RN RN vc1 Zunilda Hardwick, COLE RN ag7 Corrections: (The following items were deleted from the chart) 04:30 04:26 Verified vc1 vc1 04:41 04:24 BP 131 / 103; Pulse 118bpm; Resp 20bpm; Pulse Ox 99% RA; Temp 98.3F Oral; 110.22 vc1 kg; Height 5 ft. 5 in.; BMI: 40.4; Pain 10/10; vc1
[2021-06-04 04:59] VITALS: TEMP 98.3
[2021-06-04 05:00] VITALS: O2SAT 100
[2021-06-04 05:01] VITALS: BP 124/73
== END 2021-06-04 04:50 | disposition home or self-care (01) ==
LOC: ER 03:52
DX: O99.611 Diseases of the digestive system complicating pregnancy, first trimester (principal); R19.7 Diarrhea, unspecified; O99.331 Smoking (tobacco) complicating pregnancy, first trimester; Z3A.13 13 weeks gestation of pregnancy
CPT/HCPCS: 99283

== ENCOUNTER 2021-06-21 05:02 | Emergency (ER) | payer OTHER ==
--- OUTSIDE RECORDS SUMMARY | 2021-06-21 05:07 | XMS REPORT | Continuity of Care Document ---
:1995 Author Organization [facility] t Address [address] [place] [address] Care Team Providers Name Role Phone Akinsipaola AGARWALP, C Primary Care Physician JOHN MEDINA Attending Clinician Unavailable Jason VARGAS Attending Clinician Antonette ACNP Attending Clinician Camryn Leyva MD Attending Clinician John Medina MD Attending Clinician Harrison VARGAS M Attending Clinician Angela BECKETT Attending Clinician Unavailable Angela BECKETT Attending Clinician Unavailable Camryn LEYVA Admitting Clinician Unavailable Camryn Leyva MD Admitting Clinician Harrison VARGAS M Admitting Clinician Angela BECKETT Admitting Clinician Unavailable Payers Payer Name Policy Type Policy Number Effective Date Expiration Date Alem SQUIRES [id number] 2021 00:00:00 Problems Condition Condition Condition Status Onset Resolution Last Treating Co mments Source Name Details Category Date Date Treatment Clinician Date Vitamin D Vitamin D Disease Active Uni vers deficiency deficiency 4-26 it y of 00:00: [place] [address] Medical Branch Hyperbilir Hyperbilir Disease Active U nivers ubinemia ubinemia 4-25 ity of 00:00: [place] 00 [facility] Hypomagnes Hypomagnes Disease Active U nivers emia emia 4-25 ity of 00:00: [place] [facility] Hypocalcem Hypocalcem Disease Active U nivers ia ia 4-25 ity of 00:00: [place] [facility] Chronic Chronic Disease Active Univers hypertensi hypertensi 4-24 it y of on on 00:00: [place] affecting affecting 00 [facility] Bran ch Morbid Morbid Disease Active Univers obesity obesity 4-23 ity of with body [place] mass index mass index 00 Me dical of of Branch 40.0-49.9 40.0-49.9 13 weeks 13 weeks Disease Active Unive rs gestation gestation 4-12 ity of of of 00:00: [place] 00 [facility] Obesity Obesity Disease Active Univers (BMI (BMI 4-12 ity of 30-39.9) 30-39.9) 00:00: [place] [facility] Hyperemesi Hyperemesi Disease Active U nivers s s 4-12 ity of gravidarum gravidarum 00:00[place] 00 [place] 12 weeks 12 weeks Disease Active Unive rs gestation gestation 4-12 ity of of of 00:00: [place] 00 [facility] Hypokalemi Hypokalemi Disease Active U nivers a a 4-12 ity of 00:00: [place] [facility] Hyponatrem Hyponatrem Disease Active U nivers ia ia 4-12 ity of 00:00: [place] [facility] Tachycardi Tachycardi Disease Active U nivers a a 4-12 ity of 00:00: [place] [facility] E46 E46 Disease Active Univers Unspecifie Unspecifie 4-12 it y of d severe d severe 00:00: [place] protein-ca protein-ca 00 Me dical ash ash Branch malnutriti malnutriti on on Allergies, Adverse Reactions, Alerts Allergy Allergy Status Severity Reaction(s) Onset Inactive Treating Comm ents Source Name Type Date Date Clinician Metoclop Drug Active Extra Univers ramide Allergy pyramidal 4-12 ity of effects 00:00: [place] 00 [facility] METOCLOP DRUG Active Med EP Effects [facility] RAMIDE INGREDI 12 ity of 00:00: [place] 00 [facility] NO KNOWN Drug Active Univers ALLERGIE Class ity of S [facility] Social History Social Habit Start Date Stop Date Quantity Comments Source ASSERTION 2021-03-22 [facility] 00:00:00 [facility] Tobacco Comment 2021-06-13 2021-06-13 marijuana [facility] 00:00:00 00:00:00 [facility] Exposure to 2021-06-01 2021-06-11 Not sure [facility] SARS-CoV-2 (event) 00:00:00 14:00:00 [facility] Sex Assigned At [birth year] [facility] 00:00:00 00:00:00 [facility] Smoking Status Start Date Stop Date Source Unknown if ever smoked [facility] Current some day smoker 2021-06-13 00:00:00 [facility] Medications Ordered Filled Start Stop Current Ordering Indication Dosage Frequency Signature Comments Components Source Medication Medication Date Date Medication? Clinician (SIG) Name Name magnesium 2021- Yes 400mg 400 mg, Uni vers oxide 06-15 Oral, BID, ity of (MAG-OX 01:00: 00:59 2 doses, [place] 400) tablet 00 :00 First dose Me dical 400 mg (after [place] last modificati on) on Sun06/14/21 at 2000, Last dose on Sun06/15/21 at 0800, Routine proCHLORper Yes 10mg 10 mg, [facility] azine 06-14 Oral, Q6H, ity of (COMPAZINE) 20:15: First dose [place] tablet 10 00 on Sun Medical mg 06/14/21 at Branch 1515, Until Discontinu ed, Routine KCL 2021- No 20meq 20 mEq, Univers (KLOR-CON 06-14 Oral, ity of M20) tablet 20:15: 20:05 ONCE, 1 [place] 20 mEq 00 :00 dose, On Medical Tu Branch 06/14/21 at 1515, Routine potassium 2021- No 20meq 20 mEq, IV Univers chloride 20 06-14 Piggyback, i ty of mEq/100 mL 19:00: 20:00 Q2H, 2 [place] (KCL) 20 00 :21 doses, Medical mEq/100 mL First dose [facility] RTU IVPB 20 (after mEq last modificati on) on [facility] 06/14/21 at 1400, Last dose on [facility] 06/14/21 at 1600, 100 mL diphenhydrA 2021- No 25mg 25 mg, Uni vers MINE 06-14 Intravenou ity of (BENADRYL) 18:15: 17:14 s, ONCE, 1 [place] injection 00 :00 dose, On Medica l 25 mg [facility] 06/14/21 at 1315, Routine magnesium No 400mg 400 mg, Uni vers oxide 06-14 Oral, ity of (MAG-OX 14:00: 16:42 DAILY, [place] 400) tablet 00 :23 First dose Me dical 400 mg on [facility] 06/14/21 at 0900, Until Discontinu ed, Routine potassium 2021- No 20meq 20 mEq, IV Univers chloride 20 06-14 Piggyback, i ty of mEq/100 mL 01:45: 02:49 ONCE, 1 [place] (KCL) 20 00 :00 dose, On Medical mEq/100 mL [facility] RTU IVPB 20 06/13/21 at mEq 2045, 100 mL LORazepam 2021- No 1mg 1 mg, Slow U nivers (ATIVAN) 06-14 IV Push, ity of injection 1 01:45: 00:43 ONCE, 1 [place] mg 00 :00 dose, On Medical [facility] 06/13/21 at 2045, RACHAEL calcium 2021- No 1g 1 g, IV Univer s gluconate 1 06-14 Infusion, it y of g in NaCl 00:30: 00:25 ONCE, 1 [place] 50 mL 00 :00 dose, On Medical (ISO-OSM) [facility] RTU IV 06/13/21 at infusion 1 1930, g Routine magnesium 2021- Yes [id number] 400mg Take 1 Univers oxide 400 4-26 tablet by ity o f mg (241.3 00:00: mouth [place] mg 00 daily. Medical magnesium) Branch tablet Cholecalcif Yes [id number] 2000U Take 1 Univers mauricio, 4-26 tablet by ity of Vitamin D3, 00:00: mouth [place] (VITAMIN 00 daily. Medical D3) 50 mcg Branch (2,000 unit) tablet KCL 20 mEq Yes [id number] 20meq Take 1 Univers tablet 4-26 tablet by ity of 00:00: mouth [place] 00 daily. Medical Branch proCHLORper 2021- Yes [id number] 10mg Take 1 Univers azine 10 mg - 05-11 tablet by it y of tablet 00:00: 04:59 mouth [place] 00 :00 every 6 Medical (six) Branch hours for 14 days. magnesium 2021- No 2g 2 g, IV Univ ers sulfate in 06-13 Piggyback, it y of water 2 23:45: 00:33 Administer [place] gram/50 mL 00 :00 over 60 Medica l (4 %) Minutes, Branch infusion 2 ONCE, 1 g dose, On Sun06/13/21 at 1845, Routine KCL 20 2021- No 40meq 40 mEq, Univer s mEq/15 mL 06-13 Oral, Q2H, ity of solution 40 23:30: 02:59 2 doses, [place] mEq 00 :00 First dose Medical on Sun [place] 06/13/21 at 1830, Last dose on Sun06/13/21 at 2000, Routine thiamine 2021- No IV Univers (VITAMIN 06-13 Infusion, ity o f B1) 100 mg, 14:00: 23:15 at 150 [place] foLIC acid 00 :40 mL/hr, Medical (FOLATE) 1 DAILY, Branch mg in D5W First dose 0.45% NaCl (after (1/2NS) IV last Solution modificati on) on Sun06/13/21 at 0900, Until Discontinu ed, 1,000 mL potassium 2021- No 10meq 10 mEq, IV Univers chloride in 06-13 Piggyback, i ty of water 10 13:00: 17:28 Q1H, 4 [place] mEq/100 mL 00 :00 doses, Medical RTU 10 mEq First dose Bra nch on Sun06/13/21 at 0800, Last dose on Sun06/13/21 at 1100, Administer over 60 Minutes, 100 mL lactated No 1000mL at 150 Univ ers ringers IV 06-13 mL/hr, ity of infusion 12:25: 20:02 1,000 mL, [place] 1,000 mL 00 :15 IV Medical Infusion, Branch CONTINUOUS , Starting on Sun06/13/21 at 0730, Until Sun06/14/21 at 1502, Routine doxylamine Yes 25mg 25 mg, Unive rs (SLEEP AID) 425 Oral, QHS, it y of tablet 25 02:00: First dose [place] mg 00 (after Medical last Branch reorder) on Sun06/12/21 at 2100, Until Discontinu ed, Routine NaCl 0.9% 2021- No IV Univers (NS) 1000 06-12 Infusion, ity of mL + KCL 40 23:00: 23:15 at 150 [place] mEq 00 :40 mL/hr, Medical CONTINUOUS Branch , Starting on Sun06/12/21 at 1800, Until Sun06/13/21 at 1815, Routine proCHLORper 2021- No 10mg 10 mg, IV Univers azine 06-12 Piggyback, ity of (COMPAZINE) 20:00: 20:00 at 100 [place] 10 mg in 00 :21 mL/hr Medical NaCl 0.9% Administer Bran ch (NS) over 30 piggyback Minutes, Q6H, First dose (after last modificati on) on Sun06/12/21 at 1500, Until Discontinu ed, Routine pantoprazol 2021- No 40mg 40 mg, Uni vers e 06-12 Slow IV ity of (PROTONIX) 17:00: 20:02 Push, [place] injection 00 :15 Q24H, Medical 40 mg First dose Branch (after last reorder) on Sun06/12/21 at 1200, Until Discontinu ed D5W 0.9% 2021- No 1000mL at 150 Univ ers NaCl (NS) 06-12 mL/hr, ity of IV infusion 16:30: 19:51 1,000 mL, [place] 1,000 mL 00 :00 IV Medical Infusion, Branch ONCE, 1 dose, On 06/12/21 at 1130, Routine thiamine 2021- No IV Univers (VITAMIN 06-12 Infusion, ity o f B1) 100 mg, 14:00: 16:49 at 150 [place] foLIC acid 00 :28 mL/hr, Medical (FOLATE) 1 DAILY, Branch mg in D5W First dose 0.45% NaCl on Sun (1/2NS) IV 06/12/21 at Solution 0900, Until Discontinu ed, 1,000 mL sodium 2021- No 30mL 30 mL, Univers citrate-cit 06-12 Oral, PRN it y of erick acid 13:15: 13:23 - SEE [place] (BICITRA) 00 :00 INSTRUCTIO Medi leidy 500-334 NS, 1 Branch mg/5 mL dose, solution 30 Starting mL on 06/12/21 at 0815, Until 06/12/21 at 0823, Routine, Nausea and Vomiting (N/V) proCHLORper 2021- No 10mg 10 mg, IV Univers azine 06-12 Piggyback, ity of (COMPAZINE) 13:14: 16:47 at 100 [place] 10 mg in 01 :52 mL/hr Medical NaCl 0.9% Administer Bran ch (NS) over 30 piggyback Minutes, Q6HPRN, Starting on 06/12/21 at 0814, Until 06/12/21 at 1147, Routine, Nausea and Vomiting (N/V), Not controlled by Zofran potassium 2021- No 10meq 10 mEq, IV Univers chloride in 06-12 Piggyback, i ty of water 10 13:00: 17:38 Q1H, 4 [place] mEq/100 mL 00 :00 doses, Medical RTU 10 mEq First dose Bra nch (after last reorder) on 06/12/21 at 0800, Last dose on Sun06/12/21 at 1100, Administer over 60 Minutes, 100 mL acetaminoph Yes 650mg 650 mg, Un rustam en 06-12 Oral, ity of (TYLENOL) 07:00: Q6HPRN, [place] tablet 650 50 Starting Medic al mg on Sun Branch 06/12/21 at 0200, Until Discontinu ed, Routine, Pain (scale 4-6) doxylamine 2021- No 25mg 25 mg, Univ ers (SLEEP AID) 06-12 Oral, ity of tablet 25 03:00: 03:26 ONCE, 1 [place] mg 00 :00 dose, On Medical Sat Branch 06/11/21 at 2200, Routine ondansetron Yes 4mg 4 mg, Slow Univers (ZOFRAN 06-12 IV Push, ity of (PF)) 02:00: Q6HPRN, [place] injection 4 00 Starting Medi leidy mg on Sat Branch 06/11/21 at 2100, Until Discontinu ed, RACHAEL, Nausea and Vomiting (N/V), N/V alternatin g with Promethazi ne NaCl 0.9% 2021- No 1000mL at 150 Uni vers (NS) IV 06-12 mL/hr, IV ity of infusion 00:45: 23:15 Infusion, [place] 1,000 mL 00 :40 CONTINUOUS Medic al , Starting Branch on 06/11/21 at 1945, Until 06/13/21 at 1815, Routine
Run the [employer] runners with NS, then start the banana bag
potassium 2021- No 10meq 10 mEq, IV Univers chloride in 06-11 Piggyback, i ty of water 10 23:00: 04:40 Q1H, 4 [place] mEq/100 mL 00 :00 doses, Medical RTU 10 mEq First dose Bra nch on 06/11/21 at 1800, Last dose on 06/11/21 at 2100, Administer over 60 Minutes, 100 mL NaCl 0.9% 2021- No 1000mL at 999 Uni vers (NS) bolus 06-11- mL/hr, ity of infusion 22:30: 22:10 1,000 mL, [place] 1,000 mL 00 :00 IV Medical Infusion, Branch ONCE, 1 dose, On 06/11/21 at 1730, RACHAEL maalox:diph Yes 15mL 15 mL, Univ ers enhydrAMINE 06-11 Oral, ity of :lidocaine 22:02: QDAILYPRN, [place] 2 % viscous 05 Starting Medi leidy 1:1:1 on Sat Branch ([facility]-MOUT 06/11/[address] [facility]) 1702, oral Until suspension Discontinu 15 mL ed, Routine, Epigastric pain from excessive vomiting proMETHazin 2021- No 25mg 25 mg, IV Univers e 06-11 Piggyback, ity of (PHENERGAN) 21:45: 13:15 Q4HPRN, [place] 25 mg in 41 :08 Starting Medical NaCl 0.9% on Sat Branch (NS) 50 mL 06/11/21 at IV 1645, piggyback Until 06/12/21 at 0815, Routine, Nausea and Vomiting (N/V) ondansetron 2021- No 4mg 4 mg, Slow Univers (ZOFRAN 06-11 IV Push, ity of (PF)) 19:45: 19:45 ONCE, 1 [place] injection 4 00 :00 dose, On Medi leidy mg Sat Branch 06/11/21 at 1445, RACHAEL pantoprazol 2021- No 40mg 40 mg, Uni vers e 06-11 Slow IV ity of (PROTONIX) 19:30: 18:42 [place], [place] injection 00 :00 ONCE, 1 Medical 40 mg dose, On Branch 06/11/21 at 1430 FENTanyl PF No 50ug 50 mcg, Un rustam (SUBLIMAZE 06-11 Slow IV ity o f (PF)) 19:30: 18:42 Push, [place] injection 00 :00 ONCE, 1 Medical 50 mcg dose, On Branch 06/11/21 at 1430, RACHAEL potassium 2021-2021- No 10meq 10 mEq, IV Univers chloride in 06-11 Piggyback, i ty of water 10 19:18: 20:47 ONCE, 1 [place] mEq/100 mL 00 :00 dose, On Medic al RTU 10 mEq Sat Branch 06/11/21 at 1430, Administer over 60 Minutes, 100 mL ondansetron 2021- No 4mg 4 mg, Slow Univers (ZOFRAN 06-11 IV Push, ity of (PF)) 19:00: 18:15 ONCE, 1 [place] injection 4 00 :00 dose, On Medi leidy mg Sat Branch 06/11/21 at 1400, RACHAEL NaCl 0.9% 2021- No 1000mL at 999 Uni vers (NS) bolus 06-11 mL/hr, ity of infusion 19:00: 19:48 1,000 mL, [place] 1,000 mL 00 :00 IV Medical Infusion, Branch ONCE, 1 dose, On 06/11/21 at 1400, RACHAEL simethicone Yes 120mg 120 mg, Un rustam (GAS RELIEF -15 Oral, ity of (SIMETHICON 15:15: PC+HS, [place] E)) 00 First dose Medical chewable on Sun Branch tablet 120 06/03/21 at mg 1015, Until Discontinu ed, Routine alum-mag Yes 30mL 30 mL, Univers hydroxide-s -15 Oral, ity of imeth 15:13: Q6HPRN, [place] (MAALOX 12 Starting Medical PLUS / on Fri Branch MAG-AL 06/03/21 at PLUS) 1013, 200-200-20 Until mg/5 mL Discontinu suspension ed, 30 mL Routine, Indigestio n diphenhydrA No 25mg 25 mg, Uni vers MINE 06-03-15 Oral, ity of (BENADRYL) 02:15: 03:56 ONCE, 1 [place] tablet 25 00 :00 dose, On Medica l mg [place] Branch 06/02/21 at 2115, Routine melatonin Yes 3mg 3 mg, Univers (MELATIN) -15 Oral, ity of tablet 3 mg 01:12: QHSPRN, [place] 46 Starting Medical on [place] Branch 06/02/21 at 2012, Until Discontinu ed, Routine, Insomnia pantoprazol 2022- Yes [id number] 40mg Take 1 Univers e 40 mg EC 06-03 tablet by ity of tablet 00:00: 04:59 mouth [place] 00 :00 daily for Medical 360 days. Branch pantoprazol 2022- Yes [id number] 40mg Take 1 Univers e 40 mg EC 4-15 04-11 tablet by ity of tablet 00:00: 04:59 mouth [place] 00 :00 daily for Medical 360 days. Branch 2021- Yes [id number] 1{tbl} Take 1 Univers vitamin 4-15 10-13 tablet by ity of w/FA tablet 00:00: 04:59 mouth [place] 00 :00 daily for Medical 180 days. Branch 2021- Yes [id number] 1{tbl} Take 1 Univers vitamin 4-15 10-13 tablet by ity of w/FA tablet 00:00: 04:59 mouth [place] 00 :00 daily for Medical 180 days. Branch doxylamine 2021- Yes [id number] 12.5mg Take 0.5 Univers 25 mg 4-15 07-15 tablets by ity of tablet 00:00: 04:59 mouth 4 [place] 00 :00 (four) Medical times Branch daily for 90 days. pyridoxine, 2021- Yes [id number] 25mg Take 1 Univers VITAMIN 4-15 07-15 tablet by ity of B-6, 25 mg 00:00: 04:59 mouth 4 [place] tablet 00 :00 (four) Medical times Branch daily for 90 days. doxylamine 2021- Yes [id number] 12.5mg Take 0.5 Univers 25 mg 4-15 07-15 tablets by ity of tablet 00:00: 04:59 mouth 4 [place] 00 :00 (four) Medical times Branch daily for 90 days. pyridoxine, 2021- Yes [id number] 25mg Take 1 Univers VITAMIN 4-15 07-15 tablet by ity of B-6, 25 mg 00:00: 04:59 mouth 4 [place] tablet 00 :00 (four) Medical times Branch daily for 90 days. proMETHazin 2021- Yes [id number] 25mg Take 1 Univers e 25 mg 4-15 05-16 tablet by ity of tablet 00:00: 04:59 mouth [place] 00 :00 every 6 Medical (six) Branch hours as needed for Nausea and Vomiting (N/V) for up to 30 days. proMETHazin 2021- Yes [id number] 25mg Take 1 Univers e 25 mg 4-15 05-16 tablet by ity of tablet 00:00: 04:59 mouth [place] 00 :00 every 6 Medical (six) Branch hours as needed for Nausea and Vomiting (N/V) for up to 30 days. NaCl 0.9% 0 Yes IV Univers (NS) 1000 14 Infusion, ity o f mL + KCL 40 21:00: at 200 [place] mEq 00 mL/hr, Medical CONTINUOUS Branch , Starting on [place] 06/02/21 at 1600, Until Discontinu ed, Routine potassium 0 202- No 20meq 20 mEq, IV Univers chloride 20 06-02-14 Piggyback, i ty of mEq/100 mL 21:00: 23:41 Q2H, 2 [place] (KCL) 20 00 :00 doses, Medical mEq/100 mL First dose Bra nch RTU IVPB 20 on [place] mEq 06/02/21 at 1600, Last dose on [place] 06/02/21 at 1800, 100 mL proMETHazin 0 Yes 25mg 25 mg, Univ ers e 14 Oral, Q6H, ity of (PHENERGAN) 17:00: First dose [place] tablet 25 00 (after Medical mg last Branch modificati on) on [place] 06/02/21 at 1200, Until Discontinu ed, Routine pantoprazol Yes 40mg 40 mg, Univ ers e 13 Oral, ity of (PROTONIX) 17:15: DAILY, [place] EC tablet 00 First dose Medi leidy 40 mg on Sun Branch 06/01/21 at 1215, Until Discontinu ed, Routine proMETHazin 2021- No 12.5mg 12.5 mg, Univers e 06-0114 Oral, Q6H, ity of (PHENERGAN) 17:00: 15:12 First dose [place] tablet 12.5 00 :49 on Sun Medica l mg 06/01/21 at Branch 1200, Until Discontinu ed, Routine ondansetron 0 Yes 4mg 4 mg, Slow Univers (ZOFRAN 13 IV Push, ity of (PF)) 15:31: Q6HPRN, [place] injection 4 45 Nausea and Me dical mg Vomiting Branch (N/V), Starting on Sun06/01/21 at 1031
Do ses of ondansetro n 16 mg and above need to be administer ed via IV piggyback. For Dose >=24mg ECG monitoring is advisable.
KCL 2021-0 2021- No 40meq 40 mEq, Univers (KLOR-CON 06-0114 Oral, BID, ity of M20) tablet 15:30: 01:09 2 doses, [place] 40 mEq 00 :00 First dose Medical on Sun Branch 06/01/21 at 1030, Last dose on Sun06/01/21 at 2000, Routine doxylamine 0 Yes 12.5mg 12.5 mg, U nivers (SLEEP AID) 4-13 Oral, QID, it y of tablet 12.5 13:45: First dose [place] mg 00 on Sun06/01/21 at Branch 0845, Until Discontinu ed, Routine pyridoxine 2021-0 Yes 25mg 25 mg, Unive rs (VITAMIN -13 Oral, QID, ity o f B-6) tablet 13:45: First dose [place] 25 mg 00 on Sun Medical 06/01/21 at Branch 0845, Until Discontinu ed, Routine lactated 2021-0 Yes 1000mL at 125 Unive rs ringers IV 4-13 mL/hr, ity of infusion 13:15: 1,000 mL, [place] 1,000 mL 00 IV Medical Infusion, Branch CONTINUOUS , Starting on Sun06/01/21 at 0815, Until Discontinu ed, Routine KCL 20 2021-0 Yes 40meq 40 mEq, Univers mEq/15 mL 06-01 Oral, BID, ity of solution 40 13:00: First dose [place] mEq 00 on Sun06/01/21 at Branch 0800, Until Discontinu ed, Routine potassium 2021-2021- No 20meq 20 mEq, IV Univers chloride 20 06-0113 Piggyback, i ty of mEq/100 mL 11:00: 15:31 Q2H, 4 [place] (KCL) 20 00 :59 doses, Medical mEq/100 mL First dose Bra nch RTU IVPB 20 on Sun mEq 06/01/21 at 0600, Last dose on Sun06/01/21 at 1200, 100 mL lactated 2021-0 2021- No 1000mL at 42 Unive rs ringers IV 06-01-13 mL/hr, ity of infusion 08:00: 13:10 1,000 mL, [place] 1,000 mL 00 :38 IV Medical Infusion, Branch CONTINUOUS , Starting on Sun06/01/21 at 0300, Until Sun06/01/21 at 0810, Routine potassium 2021- No 20meq 20 mEq, IV Univers chloride 20 06-01 Piggyback, i ty of mEq/100 mL 03:00: 06:40 Q2H, 1 [place] (KCL) 20 00 :00 dose, Medical mEq/100 mL First dose [facility] RTU IVPB 20 (after mEq last reorder) on Sun05/31/21 at 2200, 100 mL acetaminoph 2021- No 1000mg 1,000 mg, Univers en ADULT 06-01 IV ity of (OFIRMEV) 03:00: 02:46 Infusion, [place] injection 00 :00 Administer Medi leidy 1,000 mg over 15 Branch Minutes, ONCE, 1 dose, On Sun05/31/21 at 2200, Routine
Indicatio n: Non-periop erative Patient
Approved by: Per Policy (NPO Status) diphenhydrA No 12.5mg 12.5 mg, Univers MINE 06-01 Intravenou ity of (BENADRYL) 01:45: 01:34 s, ONCE, 1 [place] injection 00 :00 dose, On Medica l 12.5 mg Sun05/31/21 at 2045, Routine NaCl 0.9% Yes 10mL 10 mL, Univer s (NS) 05-31 Slow IV ity of injection 22:16: [place], PRN, [place] 10 mL 32 Starting Medical on Sun05/31/21 at 1716, Until Discontinu ed, Routine, line maintenanc e thiamine 2021- No 100mg IV Univers (VITAMIN 05-31 Piggyback, ity of B1) 100 mg 21:15: 15:31 DAILY, [place] in NaCl 00 :59 First dose Medica l 0.9% (NS) (after Branch piggyback last modificati on) on Sun05/31/21 at 1615, Until Discontinu ed, 50 mL maalox:diph 2021- No 15mL 15 mL, Uni vers enhydrAMINE 05-31 Oral, ity of :lidocaine 19:45: 23:37 ONCE, 1 [place] 2 % viscous 00 :00 dose, On Medi leidy 1:1:1 Sun Branch (FIRST-MOUT 05/31/[address] [facility]) 1445, oral Routine suspension 15 mL [...] On Branch Sun05/31/21 at 1000, Routine potassium No 20meq 20 mEq, IV Univers chloride 20 05-31 Piggyback, i ty of mEq/100 mL 15:00: 19:45 Q2H, 2 [place] (KCL) 20 00 :00 doses, Medical mEq/100 mL First dose [facility] RTU IVPB 20 on Sun mEq 05/31/21 at 1000, Last dose on Sun05/31/21 at 1200, 100 mL lactated 2021- No 1000mL at 150 Univ ers ringers IV 05-31 mL/hr, ity of infusion 14:45: 22:05 1,000 mL, [place] 1,000 mL 00 :15 IV Medical Infusion, Branch CONTINUOUS , Starting on Sun05/31/21 at 0945, Until Sun05/31/21 at 1705, Routine ondansetron 2021- No 4mg 4 mg, Slow Univers (ZOFRAN 05-31 IV Push, ity of (PF)) 14:00: 13:09 ONCE, On [place] injection 4 00 :00 Tue Medical mg 05/31/21 at Branch 0900, For 1 dose
Do ses of ondansetro n 16 mg and above need to be administer ed via IV piggyback. For Dose >=24mg ECG monitoring is advisable.
acetaminoph Yes 650mg 650 mg, Un rustam en 4-12 Oral, ity of (TYLENOL) 13:23: Q6HPRN, [place] tablet 650 54 Starting Medic al mg on Tue Branch 05/31/21 at 0823, Until Discontinu ed, Routine, abdominal discomfort ondansetron 0 202- No 4mg 4 mg, Slow Univers (ZOFRAN 05-31 IV Push, ity of (PF)) 13:23: 16:22 Q6HPRN, [place] injection 4 29 :37 Nausea and Me dical mg Vomiting Branch (N/V), Starting on 05/31/21 at 0823
Do ses of ondansetro n 16 mg and above need to be administer ed via IV piggyback. For Dose >=24mg ECG monitoring is advisable.
docusate Yes 240mg 240 mg, Unive rs calcium -12 Oral, ity of (SURFAK) 13:21: QHSPRN, [place] capsule 240 11 Starting Medi leidy mg on Tue Branch 05/31/21 at 0821, Until Discontinu ed, Routine, Constipati on magnesium Yes 30mL 30 mL, Univer s hydroxide 12 Oral, ity of (MILK OF 13:21: QDAILYPRN, [place] MAGNESIA) 11 Starting Medica l 400 mg/5 mL on Tue Branch suspension 05/31/21 at 30 mL 0821, [...] 1 Medical 75 mcg dose, On Branch e 05/31/21 at 0415, Routine proMETHazin 2021- No 12.5mg 12.5 mg, Univers e 05-31 IV ity of (PHENERGAN) 09:00: 08:02 Piggyback, [place] 12.5 mg in 00 :00 ONCE, [...] 05-31 IV ity of (PHENERGAN) 07:15: 06:18 Piggyback, [place] 12.5 mg in 00 :00 ONCE, 1 Medica l NaCl 0.9% dose, On Branch (NS) 50 mL Tue IV 05/31/21 at piggyback 0215, RACHAEL NaCl 0.9% 2021- No 1000mL at 999 Uni vers (NS) bolus 05-31 mL/hr, ity of infusion 07:00: 08:45 1,000 mL, [place] 1,000 mL 00 :00 IV Medical Infusion, Branch ONCE, 1 dose, On e 05/31/21 at 0200, STAT D5W 0.45% 2021- No Intravenou U nivers NaCl 05-31 s, at 100 ity of (1/2NS) 1 L 06:45: 22:05 mL/hr, [place] + KCL 20 00 :15 CONTINUOUS Medic al mEq , Starting Branch on Sun05/31/21 at 0145, Until Sun05/31/21 at 1705, RACHAEL metoclopram No 10mg 10 mg, Uni vers sonia HCl 05-31 Slow IV ity of (REGLAN) 06:15: 05:34 Push, [place] injection 00 :00 ONCE, 1 Medical 10 mg dose, On Branch Sun05/31/21 at 0115, RACHAEL NaCl 0.9% 2021- No 1000mL at 999 Uni vers (NS) bolus 05-31 mL/hr, ity of infusion 06:00: 06:50 1,000 mL, [place] 1,000 mL 00 :00 IV Medical Infusion, Branch ONCE, 1 dose, On Sun05/31/21 at 0100, RACHAEL Vital Signs Vital Name Observation Time Observation Value Comments Source Systolic blood 2021-06-14 20:51:00 139 mm[Hg] [facility] Di[facility] 2021-06-14 20:51:00 91 mm[Hg] [facility] Heart rate 2021-06-14 20:51:00 99 /min [facility] Body temperature 2021-06-14 20:51:00 36.89 [facility] Respiratory rate 2021-06-14 20:51:00 18 /min [facility] Oxygen saturation in 2021-06-14 17:30:00 100 /min [facility] Arterial blood by [facility] Pulse oximetry Branch Body weight 2021-06-13 13:00:00 111.585 kg [facility] BMI 2021-06-13 13:00:00 40.94 kg/m2 [facility] Body height 2021-06-11 21:46:00 165.1 cm [facility] Systolic blood 2021-06-03 16:54:00 128 mm[Hg] [facility]iver [facility] Diastolic blood 2021-06-03 16:54:00 79 mm[Hg] Unive rsity of [facility] Heart rate 2021-06-03 16:54:00 115 /min [facility] Body temperature 2021-06-03 16:54:00 37.56 Ava [facility] Respiratory rate 2021-06-03 16:54:00 17 /min [facility] Oxygen saturation in 2021-06-03 16:54:00 100 /min [facility] Arterial blood by [facility] Pulse oximetry [place] Body height 2021-05-31 12:32:00 165.1 cm [facility] Body weight 2021-05-31 12:32:00 104.327 kg [facility] BMI 2021-05-31 12:32:00 38.27 kg/m2 [facility] Procedures Procedure Date / Time Performing Clinician Source Performed IONIZED CALCIUM 2021-06-14 13:55:00 [facility] 2021-06-14 10:54:00 [facility] 2021-06-14 10:54:00 [facility] COMP. METABOLIC PANEL 2021-06-14 10:54:00 Senthil Mujica [facility] ([id number]) [facility] VITAMIN D, 25-OH 2021-06-14 10:54:00 Guanako [facility] MAGNESIUM 2021-06-13 20:01:00 Mia Medina [facility] THYROID STIMULATING 2021-06-13 20:01:00 Senthil Mujica [facility] HORMONE [facility] HEPATIC FUNCTION PANEL 2021-06-13 20:01:00 Mia Medina [facility] ([id number]) (ALB,T.PRO,BILI [facility] T,BU/BC,ALT,AST,ALK PHOS) BASIC METABOLIC PANEL 2021-06-13 20:01:00 Ad, [facility] (NA, K, CL, CO2, GLUCOSE, Medica l Branch BUN, CREATININE, CA) MAGNESIUM 2021-06-13 08:14:00 Ad, [facility] BASIC METABOLIC PANEL 2021-06-13 08:14:00 Adum, [facility] (NA, K, CL, CO2, GLUCOSE, Medica l Branch BUN, CREATININE, CA) BASIC METABOLIC PANEL 2021-06-12 09:47:00 Adum, [facility] (NA, K, CL, CO2, GLUCOSE, Medica l Branch BUN, CREATININE, CA) URINALYSIS 2021-06-11 22:28:00 Antonette [facility] URINE CULTURE 2021-06-11 22:21:00 Adum, [facility] URINE DRUG (IMMUNOASSAY) 2021-06-11 22:21:00 [facility]ette [facility] - COMPREHENSIVE DRUG [facility] SCREEN W/O REFLEX COVID-19 (ID NOW RAPID 2021-06-11 20:00:00 [facility] Medical Branch LAB ONLY COVID 2021-06-11 20:00:00 Antonette [facility] INTERPRETATION [facility] Branch AMYLASE 2021-06-11 18:15:00 Adum, [facility] LIPASE 2021-06-11 18:15:00 Adum, [facility] HEPATIC FUNCTION PANEL 2021-06-11 18:15:00 Adum, [facility] ([id number]) (ALB,T.PRO,BILI [facility] T,BU/BC,ALT,AST,ALK PHOS) BASIC METABOLIC PANEL 2021-06-11 18:15:00 Foreign [facility] (NA, K, CL, CO2, GLUCOSE, Medica l Branch BUN, CREATININE, CA) CBC WITH DIFF 2021-06-11 18:15:00 Antonette [facility] CONSENT/REFUSAL FOR 2021-06-11 17:39:20 Doctor Unassigned, No Un [facility] DIAGNOSIS AND TREATMENT Name Medical Branch BASIC METABOLIC PANEL 2021-06-03 15:22:00 Anaid Amaya [facility] (NA, K, CL, CO2, GLUCOSE, Medica l Branch BUN, CREATININE, CA) BASIC METABOLIC PANEL 2021-06-02 17:45:00 Degffemyron [facility] (NA, K, CL, CO2, GLUCOSE, Medica l Branch BUN, CREATININE, CA) CREATININE U 24 HR 2021-06-02 15:02:00 Dewey [facility] PROTEIN QUANT U/24H 2021-06-02 15:02:00 Dewey [facility] MAGNESIUM 2021-06-02 12:45:00 [facility] BASIC METABOLIC PANEL 2021-06-02 12:45:00 [facility] (NA, K, CL, CO2, GLUCOSE, Medica l Branch BUN, CREATININE, CA) PHOSPHORUS 2021-06-01 08:41:00 [facility] MAGNESIUM 2021-06-01 08:41:00 [facility] BASIC METABOLIC PANEL 2021-06-01 08:41:00 [facility] (NA, K, CL, CO2, GLUCOSE, Medica l Branch BUN, CREATININE, CA) ABORH CONFIRMATION (LAB 2021-05-31 23:06:00 Dania Dixon [facility] ONLY) [facility] LIPASE 2021-05-31 22:50:00 Degffemyron [facility] MAGNESIUM 2021-05-31 22:50:00 Zack [facility] COMP. METABOLIC PANEL 2021-05-31 22:50:00 Degraffemyron [facility] ([id number]) [facility] RUBELLA SCREEN IGG 2021-05-31 22:50:00 Dania Dixon [facility] VZV ANTIBODY SCREEN 2021-05-31 22:50:00 Dania Dixon [facility] GALV ONLY - SYPHILIS 2021-05-31 22:50:00 Zack [facility] IGG/IGM [facility] CBC WITH DIFF 2021-05-31 22:44:00 Degraffenreiilene Anaid [facility] HB ABO GROUPING 2021-05-31 22:39:00 Dania Dixon [facility] US GALL BLADDER 2021-05-31 20:45:45 Anaid Amaya [facility] HB ECG ROUTINE & RHYTHM 2021-05-31 20:01:18 Polly Amaya [facility] URINALYSIS 2021-05-31 13:47:00 Zack Dania [facility] URINE CULTURE 2021-05-31 13:47:00 Zack [facility] COVID-19 (ID NOW RAPID 2021-05-31 13:47:00 Ludivina Beckett [facility] TESTING) [facility] LAB ONLY COVID 2021-05-31 13:47:00 Ludivina Beckett [facility] INTERPRETATION [facility] Branch PHOSPHORUS 2021-05-31 13:20:00 Anaid Amaya [facility] MAGNESIUM 2021-05-31 13:20:00 Carmen Kim [facility] COMP. METABOLIC PANEL 2021-05-31 13:20:00 Carmen iKm [facility] ([id number]) [facility] HEPATITIS B SURFACE 2021-05-31 13:20:00 Dania Dixon [facility] ANTIGEN [facility] HIV 1/2 AG-AB WITH REFLEX 2021-05-31 13:20:00 [facility] 2021-05-31 07:47:57 Abdullahi Gomez [facility] TRIMESTER LESS THAN 14 Medical [place] WEEKS US GALL BLADDER 2021-05-31 07:38:00 Abdullahi Gomez [facility] HB ECG ROUTINE & RHYTHM 2021-05-31 05:49:54 Abdullahi Gomez [facility] LIPASE 2021-05-31 05:17:00 Abdullahi Gomez [facility] COMP. METABOLIC PANEL 2021-05-31 05:17:00 Abdullahi Gomez [facility] ([id number]) [facility] TOTAL BETA HCG ASSAY 2021-05-31 05:17:00 Abdullahi Gomez [facility] CBC WITH DIFF 2021-05-31 05:17:00 Abdullahi Gomez [place] [facility] GLYCOSYLATED HEMOGLOBIN 2021-05-31 05:17:00 Abdullahi Gomez [facility] (A1C) [facility] NOTICE OF PRIVACY 2021-05-31 04:35:31 Doctor Unassigned, No [facility] PRACTICES Name [facility] CONSENT/REFUSAL FOR 2021-05-31 04:35:00 Doctor Unassigned, No Un iversity [facility] DIAGNOSIS AND TREATMENT Name [facility] HOSPITAL ADMISSION 2021-05-30 05:01:00 Doctor Unassigned, No Uni versity [facility] Name [facility] Encounters Start End Encounter Admission Attending Care Care Encounter Source Date/Time Date/Time Type Type Clinicians Facility Department ID 2021-06-11 2021-06-14 Inpatient X [facility] [id number] Univers 12:44:00 18:06:[address] [facility] 2021-06-11 2021-06-14 [facility] Abdullahi Gomez [facility] [id number] Univers 12:44:00 18:06:00 Encounter Foreign [facility] 350.1.1 3.10 [id number] [facility] Mia [facility] [id number] [facility] 083 Branch 2021-05-30 2021-06-03 [facility] Abdullahi Gomez 1.2.840.1 [id number] Univers 23:49:00 14:41:00 Encounter Ludivina Beckett [id number] ity of [facility] [id number] Fede as [id number] [facility] 135 Branch 2021-05-30 2021-06-03 Inpatient X LUDIVINA BECKETT [facility] 1 [id number] Univers 23:49:00 14:41:[address] [facility] Results Test Description Test Time Test Comments Results Result Comments Source IONIZED CALCIUM 2021-06-14 21:13:04 Test Item Value Reference Range Interpretation Comme nts IONIZED CA (test code = 9300050070) 4.50 mg/dL 4.50-5.30 PH SERUM (test code = 7663754899) 7.35-7.45 Lab Interpretation (test code = 51717-2) [facility], [id number] 17:05:00 Test Item Value Reference Range Interpretation Comments VIT D 25OH (test code = <13 25-80 L 11727-2) RUMA (test code = RUMA) Deficiency: <20 ng/mLInsufficiency: 20-24 ng/mLOptimal: 25-80 ng/mL Lab Interpretation (test Abnormal code = 78032-1) [facility] ([id number])2021-06-14 11:44:40 Test Item Value Reference Range Interpretation Comments NA (test code = 135 mmol/L 135-145 3437704436) K (test code = 3.1 mmol/L 3.5-5.0 L 2838467311) CL (test code = 107 mmol/L 98-108 6486771090) CO2 TOTAL (test code = 21 mmol/L 23-31 L 3101374579) AGAP (test code = 2-16 2022118932) BUN (test code = <2 7-23 L 1805958296) GLUCOSE (test code = 100 mg/dL 70-110 7493972861) CREATININE (test code = 0.32 mg/dL 0.50-1.04 L 7404155554) TOTAL BILI (test code = 0.4 mg/dL 0.1-1.1 6338524840) CALCIUM (test code = 7.7 mg/dL 8.6-10.6 L 4791905442) T PROTEIN (test code = 5.4 g/dL 6.3-8.2 L 9506961808) ALBUMIN (test code = 2.9 g/dL 3.5-5.0 L 5716608539) ALK PHOS (test code = 51 U/L 34-122 1901225926) ALTv (test code = 15 U/L 5-35 1742-6) AST(SGOT) (test code = 19 U/L 13-40 0129073105) eGFR (test code = mL/min/1.73m2 7872807483) RUMA (test code = RUMA) Association of [...] tests). Lab Interpretation Abnormal (test code = 45794-3) [facility]20[facility]-26 11:40:09 Test Item Value Reference Range Interpretation Comments MAGNESIUM (test code = 0838341638) 1.7 mg/dL 1.7-2.4 Lab Interpretation (test code = Normal 35925-2) [facility]2022-04-26 11:39:48 Test Item Value Reference Range Interpretation Comments PHOSPHORUS (test code = 1019410949) 2.9 mg/dL 2.5-5.0 Lab Interpretation (test code = Normal 42904-2) [facility] Center[facility] STIMULATING [id number] 01:45:09 Test Item Value Reference Range Interpretation Comments TSH (test code = See_Comment Biotin has been 3616592178) reported to cau se a negative bias, interpret resul ts relative to vern tovar's use of biotin. [Automated mess age] The system Miro generated this result transmitted ref erence range: 0.45 - 4 .70 mIU/L. The refe rence range was not u sed to interpret this result as normal/abnor mal. Lab Interpretation (test Normal code = 89319-7) [facility] Center[facility] PAN[facility] ([id number]) (ALB,T.PRO,BILI T,BU/BC,ALT,AST,ALK PHOS)2021-06-14 00:05:33 Test Item Value Reference Range Interpretation Comments TOTAL BILI (test code = 3558880819) 0.4 mg/dL 0.1-1.1 BILI UNCON (test code = 1575205602) 0.2 mg/dL 0.1-1.1 BILI CONJ (test code = 6287741505) 0.0 mg/dL 0.0-0.3 T PROTEIN (test code = 0842673018) 5.0 g/dL 6.3-8.2 L ALBUMIN (test code = 8680575714) 2.7 g/dL 3.5-5.0 L ALK PHOS (test code = 4355909937) 40 U/L 34-122 ALTv (test code = 1742-6) 15 U/L 5-35 AST(SGOT) (test code = 7290216690) 18 U/L 13-40 Lab Interpretation (test code = Abnormal 95008-8) [facility]2022-04-25 22:25:05 Test Item Value Reference Range Interpretation Comments MAGNESIUM (test code = 7148851370) 1.6 mg/dL 1.7-2.4 L Lab Interpretation (test code = Abnormal 49393-2) [facility]OLIC PANEL (NA, K, CL, CO2, GLUCOSE, BUN, CREATININE, CA)2021-06-13 21:31:03 Test Item Value Reference Range Interpretation Comments NA (test code = 134 mmol/L 135-145 L 8575484971) K (test code = 3.0 mmol/L 3.5-5.0 L 7910545461) CL (test code = 106 mmol/L 98-108 3602075123) CO2 TOTAL (test code = 23 mmol/L 23-31 2156321574) AGAP (test code = 2-16 7554999569) BUN (test code = <2 7-23 L 2908334714) GLUCOSE (test code = 88 mg/dL 70-110 4374398261) CREATININE (test code = 0.32 mg/dL 0.50-1.04 L 9060800660) CALCIUM (test code = 7.2 mg/dL 8.6-10.6 L 4019792437) eGFR (test code = mL/min/1.73m2 9555744121) RUMA (test code = RUMA) Association of [...] tests). Lab Interpretation Abnormal (test code = 52003-4) [facility]2022-04-25 09:59:25 Test Item Value Reference Range Interpretation Comments MAGNESIUM (test code = 4233751123) 1.8 mg/dL 1.7-2.4 Lab Interpretation (test code = Normal 19033-8) [facility] (NA, K, CL, CO2, GLUCOSE, BUN, CREATININE, CA)2021-06-13 09:12:17 Test Item Value Reference Range Interpretation Comments NA (test code = 138 mmol/L 135-145 9389336809) K (test code = 2.9 mmol/L 3.5-5.0 LL 4642084911) CL (test code = 109 mmol/L 98-108 H 4548287084) CO2 TOTAL (test code = 21 mmol/L 23-31 L 8919317039) AGAP (test code = 2-16 6760004700) BUN (test code = <2 7-23 L 2838797172) GLUCOSE (test code = 90 mg/dL 70-110 7712945838) CREATININE (test code = 0.38 mg/dL 0.50-1.04 L 6639471207) CALCIUM (test code = 7.6 mg/dL 8.6-10.6 L 8179036707) eGFR (test code = mL/min/1.73m2 0075850920) RUMA (test code = RUMA) Association of [...] tests). Lab Interpretation Abnormal (test code = 67823-2) [facility] METABOLIC PANEL (NA, K, CL, CO2, GLUCOSE, BUN, CREATININE, CA)2021-06-12 10:16:22 Test Item Value Reference Range Interpretation Comments NA (test code = 134 mmol/L 135-145 L 4921603766) K (test code = 3.0 mmol/L 3.5-5.0 L 5746297811) CL (test code = 108 mmol/L 98-108 2480146841) CO2 TOTAL (test code = 14 mmol/L 23-31 L 9165724086) AGAP (test code = 2-16 7013365135) BUN (test code = 2 mg/dL 7-23 L 0754618427) GLUCOSE (test code = 83 mg/dL 70-110 0953109810) CREATININE (test code = 0.33 mg/dL 0.50-1.04 L 8114018973) CALCIUM (test code = 7.6 mg/dL 8.6-10.6 L 2896575364) eGFR (test code = mL/min/1.73m2 1304136955) RUMA (test code = RUMA) Association of [...] tests). Lab Interpretation Abnormal (test code = 47349-3) [facility] (94416) (ALB,T.PRO,BILI T,BU/BC,ALT,AST,ALK PHOS)2021-06-11 20:52:21 Test Item Value Reference Range Interpretation Comments TOTAL BILI (test code = 4706142369) 0.4 mg/dL 0.1-1.1 BILI UNCON (test code = 2787499781) 0.3 mg/dL 0.1-1.1 BILI CONJ (test code = 7906904014) 0.0 mg/dL 0.0-0.3 T PROTEIN (test code = 0950147287) 6.0 g/dL 6.3-8.2 L ALBUMIN (test code = 6352460264) 3.6 g/dL 3.5-5.0 ALK PHOS (test code = 2683829368) 48 U/L 34-122 ALTv (test code = 1742-6) 19 U/L 5-35 AST(SGOT) (test code = 5465956147) 19 U/L 13-40 Lab Interpretation (test code = Abnormal 06534-6) [facility]2022-[facility]-23 20:52:21 Test Item Value Reference Range Interpretation Comments LIPASE (test code = 7893648455) 87 U/L 0-220 Lab Interpretation (test code = Normal 36925-2) [facility] Center[facility]YL[facility]2022-04-23 20:51:01 Test Item Value Reference Range Interpretation Comments MARGOTH (test code = 5805112351) 84 U/L 35-110 Lab Interpretation (test code = Normal 40985-1) [facility]OL[facility] (NA, K, CL, CO2, GLUCOSE, BUN, CREATININE, CA)2021-06-11 19:07:03 Test Item Value Reference Range Interpretation Comments NA (test code = 134 mmol/L 135-145 L 6156246194) K (test code = 2.8 mmol/L 3.5-5.0 LL 1634389933) CL (test code = 99 mmol/L 98-108 1128423740) CO2 TOTAL (test code = 27 mmol/L 23-31 0398464393) AGAP (test code = 2-16 2483408338) BUN (test code = 4 mg/dL 7-23 L 2250944468) GLUCOSE (test code = 102 mg/dL 70-110 1914020618) CREATININE (test code = 0.30 mg/dL 0.50-1.04 L 8118699625) CALCIUM (test code = 8.5 mg/dL 8.6-10.6 L 0027713211) eGFR (test code = mL/min/1.73m2 3445562176) RUMA (test code = RUMA) Association of [...] tests). Lab Interpretation Abnormal (test code = 32730-7) [facility] WITH [id number] 18:49:57 Test Item Value Reference Range Interpretation Comments [...] as normal/abnormal . HGB (test code = 12.5 g/dL 11.6-15.0 718-7) HCT (test code = 35.7 % 35.7-45.2 4544-3) MCV (test code = 94.4 fL 80.6-95.5 787-2) MCH (test code = 33.1 pg 25.9-32.8 H 785-6) MCHC (test code = 35.0 g/dL 31.6-35.1 786-4) RDW-SD (test code = 44.5 fL 39.0-49.9 51287-6) RDW-CV (test code = 12.9 % 12.0-15.5 788-0) PLT (test code = See_Comment H [Automated 777-3) message] The sy stem which generated this result transmitted reference range : 166 - 358 10*3/ ?L. The reference r andriy was not used to interpret this result as normal/abnormal . MPV (test code = 8.5 fL 9.5-12.9 L 87925-0) NRBC/100 WBC (test See_Comment [Automat ed code = 6664549387) message] The system which generated this result transmitted reference range : 0.0 - 10.0 /100 WBCs. The refer ence range was not u sed to interpret th is result as normal/abnormal . NRBC x10^3 (test code <0.01 See_Comment [Auto mated = 6028880939) message] The s ystem which generated this result transmitted reference range : 10*3/?L. The reference range was not used to interpret this result as normal/abnormal . GRAN MAT (NEUT) % 74.2 % (test code = 770-8) IMM GRAN % (test code 0.50 % = 9780206934) LYMPH % (test code = 19.1 % 736-9) MONO % (test code = 5.4 % 5905-5) EOS % (test code = 0.6 % 713-8) BASO % (test code = 0.2 % 706-2) GRAN MAT x10^3(ANC) 9.48 10*3/uL 1.88-7.09 H (test code = 1602749194) IMM GRAN x10^3 (test 0.06 10*3/uL 0.00-0.06 code = 0788659887) LYMPH x10^3 (test code 2.44 10*3/uL 1.32-3.29 = 731-0) MONO x10^3 (test code 0.69 10*3/uL 0.33-0.92 = 742-7) EOS x10^3 (test code = 0.08 10*3/uL 0.03-0.39 711-2) BASO x10^3 (test code <0.03 0.01-0.07 = 704-7) Lab Interpretation Abnormal (test code = 77031-5) [facility] METABOLIC PANEL (NA, K, CL, CO2, GLUCOSE, BUN, CREATININE, CA)2021-06-03 17:54:17 Test Item Value Reference Range Interpretation Comments NA (test code = 135 mmol/L 135-145 0102864212) K (test code = 3.4 mmol/L 3.5-5.0 L 2427684491) CL (test code = 105 mmol/L 98-108 5409602001) CO2 TOTAL (test code = 22 mmol/L 23-31 L 1176867881) AGAP (test code = 2-16 7062730695) BUN (test code = 4 mg/dL 7-23 L 3467732326) GLUCOSE (test code = 81 mg/dL 70-110 2488887304) CREATININE (test code = 0.38 mg/dL 0.50-1.04 L 5449517179) CALCIUM (test code = 8.1 mg/dL 8.6-10.6 L 3056462314) eGFR (test code = mL/min/1.73m2 0699885795) RUMA (test code = RUMA) Association of [...] tests). Lab Interpretation Abnormal (test code = 62007-4) [facility] (NA, K, CL, CO2, GLUCOSE, BUN, CREATININE, CA)2021-06-02 18:50:23 Test Item Value Reference Range Interpretation Comments NA (test code = 130 mmol/L 135-145 L 3491606954) K (test code = 2.8 mmol/L 3.5-5.0 LL 9487083827) CL (test code = 98 mmol/L 98-108 6277262654) CO2 TOTAL (test code = 27 mmol/L 23-31 8898111352) AGAP (test code = 2-16 9471957790) BUN (test code = 4 mg/dL 7-23 L 3333514820) GLUCOSE (test code = 92 mg/dL 70-110 1132356842) CREATININE (test code = 0.36 mg/dL 0.50-1.04 L 5025276191) CALCIUM (test code = 8.2 mg/dL 8.6-10.6 L 3536514536) eGFR (test code = mL/min/1.73m2 9267564092) RUMA (test code = RUMA) Association of [...] tests). Lab Interpretation Abnormal (test code = 59079-6) [facility] (NA, K, CL, CO2, GLUCOSE, BUN, CREATININE, CA)2021-06-02 14:06:06 Test Item Value Reference Range Interpretation Comments NA (test code = 133 mmol/L 135-145 L 9316716649) K (test code = 3.0 mmol/L 3.5-5.0 L 7585512635) CL (test code = 98 mmol/L 98-108 1379070632) CO2 TOTAL (test code = 28 mmol/L 23-31 8965677736) AGAP (test code = 2-16 9573965022) BUN (test code = 6 mg/dL 7-23 L 7512638112) GLUCOSE (test code = 93 mg/dL 70-110 4149699367) CREATININE (test code = 0.45 mg/dL 0.50-1.04 L 3063513388) CALCIUM (test code = 8.2 mg/dL 8.6-10.6 L 3590054793) eGFR (test code = mL/min/1.73m2 4530911870) RUMA (test code = RUMA) Association of [...] tests). Lab Interpretation Abnormal (test code = 23353-3) [facility] Test Item Value Reference Range Interpretation Comments MAGNESIUM (test code = 8221878574) 2.0 mg/dL 1.7-2.4 Lab Interpretation (test code = Normal 95599-4) [facility] ANTIBODY [id number] 16:21:33 Test Item Value Reference Range Interpretation Comments VZV IgG antibody Positive Negative (test code = 19034-8) RUMA (test code = RUMA) Positive - Indicates the patient was exposed to VZV through infection or vaccination.Negative - Indicates the patient could be susceptible to VZV infection.Equivocal - A second specimen should be sent for testing. [facility] CenterRUBELLA SCREEN [id number] 16:21:33 Test Item Value Reference Range Interpretation Comments Rubella screen IgG Positive Negative (test code = 8319569178) RUMA (test code = RUMA) Positive - Indicates the patient was exposed to Rubella through infection or vaccination.Negative - Indicates the patient could be susceptible to Rubella infection.Equivocal - A second specimen should be sent. [facility] CenterGAL [facility] - SYPHILIS [id number] 16:20:53 Test Item Value Reference Range Interpretation Comments Syphilis IgG/IgM (test Non-reactive Non-reactive code = 77509-7) RUMA (test code = RUMA) Non-reactive - No serologic evidence of T. pallidum infection. Cannot exclude incubating or early syphilis. Submit a second specimen in 2-4 weeks if syphilis is clinically suspected. Equivocal - Further testing to follow. Reactive - Further testing to follow. Lab Interpretation (test Normal code = 38260-9) [facility] METABOLIC PANEL (NA, K, CL, CO2, GLUCOSE, BUN, CREATININE, CA)2021-06-01 09:35:01 Test Item Value Reference Range Interpretation Comments NA (test code = 126 mmol/L 135-145 L 1422227526) K (test code = 2.1 mmol/L 3.5-5.0 LL 1800955019) CL (test code = 87 mmol/L 98-108 L 4362326842) CO2 TOTAL (test code = 34 mmol/L 23-31 H 7995791843) AGAP (test code = 2-16 5876326194) BUN (test code = 10 mg/dL 7-23 8237574757) GLUCOSE (test code = 85 mg/dL 70-110 8294059447) CREATININE (test code = 0.59 mg/dL 0.50-1.04 0106851670) CALCIUM (test code = 7.9 mg/dL 8.6-10.6 L 9658696038) eGFR (test code = mL/min/1.73m2 1981459344) RUMA (test code = RUMA) Association of [...] tests). Lab Interpretation Abnormal (test code = 71311-4) [facility]2022-[facility]-13 09:27:13 Test Item Value Reference Range Interpretation Comments MAGNESIUM (test code = 1730458172) 2.2 mg/dL 1.7-2.4 Lab Interpretation (test code = Normal 96718-2) [facility]2022-[facility]-13 09:27:13 Test Item Value Reference Range Interpretation Comments PHOSPHORUS (test code = 8332314368) 2.3 mg/dL 2.5-5.0 L Lab Interpretation (test code = Abnormal 94734-6) [facility]. METABOLIC PANEL (77803)2021-05-31 23:57:56 Test Item Value Reference Range Interpretation Comments NA (test code = 126 mmol/L 135-145 L [id number]) K (test code = 2.3 mmol/L 3.5-5.0 LL Slight [id number]) hemolysis CL (test code = 83 mmol/L 98-108 L 0144379533) CO2 TOTAL (test code 32 mmol/L 23-31 H = 5723581762) AGAP (test code = 2-16 9243705314) BUN (test code = 13 mg/dL 7-23 Slight [id number]) hemolysis GLUCOSE (test code = 89 mg/dL 70-110 1844543832) CREATININE (test code 0.49 mg/dL 0.50-1.04 L = 7223618499) TOTAL BILI (test code 1.3 mg/dL 0.1-1.1 H = 2403124127) CALCIUM (test code = 8.0 mg/dL 8.6-10.6 L [id number]) T PROTEIN (test code 6.2 g/dL 6.3-8.2 L = 9702994417) ALBUMIN (test code = 3.6 g/dL 3.5-5.0 1848346462) ALK PHOS (test code = 52 U/L 34-122 Slight [id number]) hemolysis ALTv (test code = 45 U/L 5-35 H 1742-6) AST(SGOT) (test code 33 U/L 13-40 Slight = 1399481092) hemolysis eGFR (test code = mL/min/1.73m2 7482741396) RUMA (test code = RUMA) Association of [...] tests). Lab Interpretation Abnormal (test code = 21420-5) [facility] 23:56:29 Test Item Value Reference Range Interpretation Comments MAGNESIUM (test code = 4376776010) 2.1 mg/dL 1.7-2.4 Lab Interpretation (test code = Normal 74329-5) [facility] 23:56:29 Test Item Value Reference Range Interpretation Comments LIPASE (test code = 7528257673) 127 U/L 0-220 Lab Interpretation (test code = Normal 68633-5) [facility] CenterType and Screen - ONCE [id number] 23:23:54 Test Item Value Reference Range Interpretation Comments ABO & RH (test code O POSITIVE Performe d at [facility] = 20) Laboratory Serv [facility] Blood Bank3 [facility] s [address]Lcdz Free: [phone] A No. [id number] IAT (test code = Negative Performed a t [facility] 1185) Laboratory Serv [facility] Blood [facility] s [address]Wquq Free: [phone] A No. [id number] [facility] CenterABORH Confirmation (Lab Only)2021-05-31 23:23:54 Test Item Value Reference Range Interpretation Comments ABO & RH (test code O Positive Performe d at [facility] = 20) Laboratory Serv [facility] [address] [facility] [address]Erhh Free: [phone] A No. [id number] [facility] WITH [id number] 23:17:00 Test Item Value Reference Range Interpretation Comments WBC (test code = See_Comment [Automated 0290-2) message] The sy stem which generated this [...] RDW-SD (test code = 40.1 fL 39.0-49.9 58854-0) RDW-CV (test code = 11.9 % 12.0-15.5 L 788-0) PLT (test code = See_Comment [Automated 777-3) message] The sy stem which generated this result transmitted reference range : 166 - 358 10*3/ ?L. The reference r andriy was not used to interpret this result as normal/abnormal . MPV (test code = 9.4 fL 9.5-12.9 L 44311-0) NRBC/100 WBC (test See_Comment [Automat ed code = 6335779325) message] The system which generated this result transmitted reference range : 0.0 - 10.0 /100 WBCs. The refer ence range was not u sed to interpret th is result as normal/abnormal . NRBC x10^3 (test code <0.01 See_Comment [Auto mated = 7267974079) message] The s ystem which generated this result transmitted reference range : 10*3/?L. The reference range was not used to interpret this result as normal/abnormal . GRAN MAT (NEUT) % 65.5 % (test code = 770-8) IMM GRAN % (test code 0.50 % = 8042284880) LYMPH % (test code = 24.6 % 736-9) MONO % (test code = 7.9 % 5905-5) EOS % (test code = 1.3 % 713-8) BASO % (test code = 0.2 % 706-2) GRAN MAT x10^3(ANC) 6.82 10*3/uL 1.88-7.09 (test code = 7887214457) IMM GRAN x10^3 (test 0.05 10*3/uL 0.00-0.06 code = 4139989301) LYMPH x10^3 (test code 2.56 10*3/uL 1.32-3.29 = 731-0) MONO x10^3 (test code 0.82 10*3/uL 0.33-0.92 = 742-7) EOS x10^3 (test code = 0.13 10*3/uL 0.03-0.39 711-2) BASO x10^3 (test code <0.03 0.01-0.07 = 704-7) Lab Interpretation Abnormal (test code = 71678-7) [facility]HIV [facility]2 AG-AB WITH [id number] 20:00:29 Test Item Value Reference Range Interpretation Comments HIV Negative Negative Semi-quantitative (test code = 29829-9) RUMA (test code = Non-reactive for HIV-1 RUMA) antigen and HIV-1/HIV-2 antibodies. ?No laboratory evidence of HIV infection. ?Repeat in 2-4 weeks if acute HIV infection is suspected. [facility] CenterHEPATITIS B SURFACE [id number] 16:36:40 Test Item Value Reference Range Interpretation Comments HBsAg Semi-Quantitative (test code = Negative Negative 5195-3) [facility]PHOSPHORUS2022-04-12 16:01:55 Test Item Value Reference Range Interpretation Comments PHOSPHORUS (test code = 6585415369) 3.3 mg/dL 2.5-5.0 Lab Interpretation (test code = Normal 58015-1) [facility] CenterCOMP. METABOLIC PANEL (20455)2021-05-31 14:52:05 Test Item Value Reference Range Interpretation Comments NA (test code = 128 mmol/L 135-145 L 7049301995) K (test code = 2.4 mmol/L 3.5-5.0 LL 2792149651) CL (test code = 84 mmol/L 98-108 L 4231515975) CO2 TOTAL (test code = 32 mmol/L 23-31 H 5456948205) AGAP (test code = 2-16 2229757907) BUN (test code = 17 mg/dL 7-23 4943838888) GLUCOSE (test code = 118 mg/dL 70-110 H 2791300607) CREATININE (test code = 0.64 mg/dL 0.50-1.04 4980881888) TOTAL BILI (test code = 1.4 mg/dL 0.1-1.1 H 4348162410) CALCIUM (test code = 8.4 mg/dL 8.6-10.6 L 7139031072) T PROTEIN (test code = 6.9 g/dL 6.3-8.2 1315283868) ALBUMIN (test code = 4.2 g/dL 3.5-5.0 2606467819) ALK PHOS (test code = 59 U/L 34-122 4398971095) ALTv (test code = 56 U/L 5-35 H 1742-6) AST(SGOT) (test code = 36 U/L 13-40 3868461142) eGFR (test code = mL/min/1.73m2 4933717858) RUMA (test code = RUMA) Association of [...] tests). Lab Interpretation Abnormal (test code = 06959-9) [facility] Test Item Value Reference Range Interpretation Comments MAGNESIUM (test code = 5864804306) 2.2 mg/dL 1.7-2.4 Lab Interpretation (test code = Normal 67365-7) [facility] 06:22:56 Test Item Value Reference Range Interpretation Comments BETA HCG (test See_Comment [Automated m essage] code = The system psychiatric h 2934425954) generated this result transmit sarah reference range : Non- fe male and male patien ts: <5 mIU/mL. The reference range was not used to interpret this result as normal/abnormal . RUMA (test code Gestational Age ? ? = RUMA) ?Range (mIU/mL) 1-10 ?Weeks ?[id number] Weeks ?33691-44717809-70 Weeks ?0707-56073271-86 Weeks ?0126-639797 Biotin has been reported to cause a negative bias, interpret results relative to patient's use of biotin. [facility] CenterGLYCOSYLATED HEMOGLOBIN (A1C)2021-05-31 05:57:11 Test Item Value Reference Range Interpretation Comments HGB A1C (test code = 5.7 % 4.0-5.7 4548-4) RUMA (test code = RUMA) Reference RangesNormal: <5.7%Prediabetes: 5.7 - 6.4%Diabetes: > 6.5% Lab Interpretation (test Normal code = 70791-4) [facility] CenterCOM. METABOLIC PANEL (29199)2021-05-31 05:41:13 Test Item Value Reference Range Interpretation Comments NA (test code = 126 mmol/L 135-145 L 6747764495) K (test code = 2.4 mmol/L 3.5-5.0 LL 1163415006) CL (test code = 74 mmol/L 98-108 L 6860666491) CO2 TOTAL (test code = 37 mmol/L 23-31 H 0378351035) AGAP (test code = 2-16 5926701967) BUN (test code = 22 mg/dL 7-23 9005398677) GLUCOSE (test code = 127 mg/dL 70-110 H 6238641743) CREATININE (test code = 0.88 mg/dL 0.50-1.04 3148572581) TOTAL BILI (test code = 1.7 mg/dL 0.1-1.1 H 7910472555) CALCIUM (test code = 9.4 mg/dL 8.6-10.6 9104773439) T PROTEIN (test code = 8.1 g/dL 6.3-8.2 0559848875) ALBUMIN (test code = 4.8 g/dL 3.5-5.0 5907216073) ALK PHOS (test code = 80 U/L 34-122 7793000560) ALTv (test code = 66 U/L 5-35 H 1742-6) AST(SGOT) (test code = 40 U/L 13-40 1487014418) eGFR (test code = mL/min/1.73m2 3068378320) RUMA (test code = RUMA) Association of [...] tests). Lab Interpretation Abnormal (test code = 50792-3) [facility] CenterL[facility]20[facility] 05:38:41 Test Item Value Reference Range Interpretation Comments LIPASE (test code = 4651932495) 89 U/L 0-220 Lab Interpretation (test code = Normal 97130-9) [facility] CenterCB WITH [id number] 05:26:16 Test Item Value Reference Range Interpretation Comments WBC (test code = See_Comment H [Automated 3516-2) message] The sy stem which generated this result transmitted reference range : 4.30 - 11.10 10*3/?L. The reference range was not used to interpret this result as normal/abnormal . RBC (test code = See_Comment [Automated 880-8) message] The sy stem which generated this [...] RDW-SD (test code = 39.1 fL 39.0-49.9 73395-8) RDW-CV (test code = 11.8 % 12.0-15.5 L 788-0) PLT (test code = See_Comment [Automated 777-3) message] The sy stem which generated this result transmitted reference range : 166 - 358 10*3/ ?L. The reference r andriy was not used to interpret this result as normal/abnormal . MPV (test code = 9.4 fL 9.5-12.9 L 52626-4) NRBC/100 WBC (test See_Comment [Automat ed code = 0405917144) message] The system which generated this result transmitted reference range : 0.0 - 10.0 /100 WBCs. The refer ence range was not u sed to interpret th is result as normal/abnormal . NRBC x10^3 (test code <0.01 See_Comment [Auto mated = 0769730373) message] The s ystem which generated this result transmitted reference range : 10*3/?L. The reference range was not used to interpret this result as normal/abnormal . GRAN MAT (NEUT) % 72.9 % (test code = 770-8) IMM GRAN % (test code 0.50 % = 1236345753) LYMPH % (test code = 18.1 % 736-9) MONO % (test code = 7.5 % 5905-5) EOS % (test code = 0.7 % 713-8) BASO % (test code = 0.3 % 706-2) GRAN MAT x10^3(ANC) 8.73 10*3/uL 1.88-7.09 H (test code = 6243519840) IMM GRAN x10^3 (test 0.06 10*3/uL 0.00-0.06 code = 4534682785) LYMPH x10^3 (test code 2.17 10*3/uL 1.32-3.29 = 731-0) MONO x10^3 (test code 0.90 10*3/uL 0.33-0.92 = 742-7) EOS x10^3 (test code = 0.08 10*3/uL 0.03-0.39 711-2) BASO x10^3 (test code 0.03 10*3/uL 0.01-0.07 = 704-7) Lab Interpretation Abnormal (test code = 96466-5) [facility]"
[2021-06-21] MEDS ORDERED: NA CHLORIDE 0.9% 2,000 ML ONE (05:50)
[2021-06-21] MEDS ORDERED: ONDANSETRON 4 MG/2 ML VIAL ONE (05:50)
[2021-06-21] MEDS ORDERED: ONDANSETRON 4 MG (ODT) TAB ONE (07:41)
[2021-06-21 08:42] LABS: Absolute Lymphocytes (CBC) 1.7 K/uL (0.7-4.9); Hematocrit 39.6 % (36.0-45.0); Lymphocytes % 16.1 % (15.3-44.8); MPV 6.9 fL (7.6-11.3); RBC Red Blood Cell Count 3.99 M/uL (3.86-4.86)
[2021-06-21] MEDS ORDERED: PROMETHAZINE INJ 25 MG/ML AMP ONE (08:44)
[2021-06-21 08:59] LABS: ALT/SGPT 14 U/L (12-78); AST/SGOT 8 U/L (15-37); Albumin 3.2 g/dL (3.4-5.0); Alkaline Phosphatase 51 U/L (45-117); BUN Blood Urea Nitrogen 5 mg/dL (7-18); Bicarbonate 23 mmol/L (21-32); Bilirubin Direct 0.1 mg/dL (0-0.2); Bilirubin Total 0.4 mg/dL (0.2-1.0); Glucose Level 70 mg/dL (74-106); Lipase 58 U/L (73-393); Sodium Level 136 mmol/L (136-145)
--- NOTE | 2021-06-21 09:16 | ER ---
Nurse's Notes [facility] Name: Robin Bernard Age: 25 yrs Sex: Female : 1995 Arrival Date: 06/21/2021 Time: 05:03 Bed 4 Private MD: Diagnosis: Hyperemesis gravidarum with metabolic disturbance;Hypokalemia Presentation: 06/21 05:39 Chief complaint: Patient states: pt has been vomiting the past 48 hours, pt is 15 weeks as6 gestation and states she has been hospitalized twice this due to low potassium. Coronavirus screen: At this time, the client does not indicate any symptoms associated with coronavirus-19. Ebola Screen: No symptoms or risks identified at this time. Initial Sepsis Screen: Does the patient meet any 2 criteria? No. Patient's initial sepsis screen is negative. Does the patient have a suspected source of infection? No. Patient's initial sepsis screen is negative. Risk Assessment: Do you want to hurt yourself or someone else? Patient reports no desire to harm self or others. Onset of symptoms was June 19, 2021. 05:39 Method Of Arrival: Ambulatory as6 05:39 Acuity: BOZENA 3 as6 MANAGER ASSESSMENT: 05:44 Verified as6 Historical: - Allergies: 05:43 Reglan; as6 - Home Meds: 05:43 None [Active]; as6 - PMHx: 05:43 None; as6 - PSHx: 05:43 None; as6 - Immunization history:: Client reports having NOT received the Covid vaccine. - Social history:: Smoking status: Patient denies any tobacco usage or history of. Patient uses street drugs, marijuana. Screenin:44 Abuse screen: Denies threats or abuse. Denies injuries from another. Nutritional as6 screening: No deficits noted. Tuberculosis screening: No symptoms or risk factors identified. Fall Risk None identified. Assessment: 05:45 Reassessment: ED RNs and ERTs attempting IV access. al4 06:19 General: Appears in no apparent distress. uncomfortable, obese, Behavior is calm, as6 cooperative. Pain: Complains of pain in abdomen. Neuro: Level of Consciousness is awake, alert, obeys commands, Oriented to person, place, time, situation. Cardiovascular: JVD is absent Patient's skin is warm and dry. Respiratory: Respiratory effort is even, unlabored, Respiratory pattern is regular, symmetrical. GI: Abdomen is round Reports lower abdominal pain, nausea, vomiting. EENT: Oral mucosa is dry. 06:25 Reassessment: MD aware of the need for IV access. al4 07:10 General: Appears uncomfortable, Behavior is calm, cooperative. Pain: Complains of pain vg1 in abdomen. Neuro: [place] Agitation-Sedation Scale (RASS): +1 Restless Level of Consciousness is awake, alert, obeys commands, Oriented to person, place, time, situation. Cardiovascular: Patient's skin is warm and dry. Respiratory: Airway is patent Respiratory effort is even, unlabored. GI: Reports nausea. : No signs and/or symptoms were reported regarding the genitourinary system. EENT: Oral mucosa is dry. Derm: Skin is intact. Musculoskeletal: Circulation, motion, and sensation intact. 08:10 Reassessment: Patient appears in no apparent distress at this time. No changes from vg1 previously documented assessment. Patient and/or family updated on plan of care and expected duration. Pain level reassessed. Patient is alert, oriented x 3, equal unlabored respirations, skin warm/dry/pink. 09:15 Reassessment: Pt asked for potassium level result; results given to pt of 3.0 for vg1 potassium level; pt requesting to go home; provider notified. 09:15 Reassessment: Patient appears in no apparent distress at this time. Patient is alert, vg1 oriented x 3, equal unlabored respirations, skin warm/dry/pink. Neuro: [place]e Agitation-Sedation Scale (RASS): +1 Restless. GI: Reports nausea. Vital Signs: 05:24 BP 115 / 57; Pulse 100; Temp 97.8; Pulse Ox 100% on R/A; Weight 111.13 kg; Height 5 ft. wm 5 in. (165.10 cm); Pain 7/10; 05:39 Pain 9/10; as6 07:00 BP 122 / 68; Pulse 93; Resp 16; Pulse Ox 100% on R/A; vg1 05:24 Body Mass Index 40.77 (111.13 kg, 165.10 cm) ED Course: 05:03 Patient arrived in ED. [email or web address] 05:05 Jean Carlos Dias MD is Attending Physician. ashok 05:19 Enrique Nix, RN is Primary Nurse. as6 05:35 Patient has correct armband on for positive identification. Bed in low position. Call wm light in reach. Side rails up X2. Door closed. Pulse ox on. NIBP on. 05:43 Triage completed. as6 05:44 Arm band placed on. as6 07:07 Attending Physician role handed off by Jean Carlos Dias MD rn 07:07 Robert Wolf MD is Attending Physician. rn 07:45 Missed attempt(s): 20 gauge in right antecubital area. vg1 08:20 Inserted saline lock: 22 gauge in left antecubital area, using aseptic technique. vg1 ,using aseptic technique. completed by Lillian GALVAN via US Blood collected. 08:37 IV discontinued, intact, bleeding controlled, No redness/swelling at site. Pressure vg1 dressing applied, IV infiltrated. 09:03 Inserted saline lock: 22 gauge in left antecubital area, using aseptic technique. vg1 ,using aseptic technique. completed by Dr Wolf via US. 09:15 IV discontinued, intact, bleeding controlled, No redness/swelling at site. Pressure vg1 dressing applied, IV infiltrated. 09:36 No provider procedures requiring assistance completed. vg1 Administered Medications: 08:36 Not Given (Patient Refused): Zofran (Ondansetron) 4 mg IVP once; over 2 minutes vg1 09:08 Drug: Phenergan (promethazine) 12.5 mg Route: IVP; Site: left antecubital; vg1 09:35 Follow up: Response: No adverse reaction; No change in condition vg1 09:36 Not Given (unable to get IV accesss): NS 0.9% 1000 ml IV at 1 bolus Per protocol; 1000 vg1 mL bolus 09:36 Not Given (unable to get IV accesss): NS 0.9% 1000 ml IV at 1 bolus Per protocol; 1000 vg1 mL bolus Outcome: 09:16 Discharge ordered by . rn 09:36 Discharged to home ambulatory, with family. vg1 09:36 Condition: unchanged 09:36 Discharge instructions given to patient, family, Instructed on discharge instructions, follow up and referral plans. Demonstrated understanding of instructions, follow-up care. 09:36 Patient left the ED. vg1 Signatures: Jean Carlos Dias MD MD cha Nieto, Roman, MD MD rn Akin, Jennifer, RN RN vg1 Vika Perez Ashby, RN RN as6 Tarun Garrett Kelly kz
--- NOTE | 2021-06-21 09:16 | EDPHYS ---
Physician Documentation [facility] Name: Robin Bernard Age: 25 yrs Sex: Female : 1995 Arrival Date: 06/21/2021 Time: 05: Bed 4 Private MD: ED Physician Robert Wolf HPI: 06/21 06:56 This 25 yrs old Black Female presents to ER via Ambulatory with complaints of Vomiting ashok - 15 weeks . 06:56 The patient presents to the emergency department with nausea, vomiting, that is ashok continuous. Onset: The symptoms/episode began/occurred 5 day(s) ago. Possible causes: unknown. The symptoms are aggravated by nothing. The symptoms are alleviated by nothing. Associated signs and symptoms: The patient has no apparent associated signs or symptoms. Severity of symptoms: At their worst the symptoms were moderate in the emergency department the symptoms are unchanged. The patient has experienced similar episodes in the past, multiple times. CLINICAL STUDY MANAGER: 05:44 Verified as6 Historical: - Allergies: 05:43 Reglan; as6 - Home Meds: 05:43 None [Active]; as6 - PMHx: 05:43 None; as6 - PSHx: 05:43 None; as6 - Immunization history:: Client reports having NOT received the Covid vaccine. - Social history:: Smoking status: Patient denies any tobacco usage or history of. Patient uses street drugs, marijuana. ROS: 06:58 Constitutional: Negative for fever, chills, and weight loss, Eyes: Negative for injury, ashok pain, redness, and discharge, ENT: Negative for injury, pain, and discharge, Neck: Negative for injury, pain, and swelling, Cardiovascular: Negative for chest pain, palpitations, and edema, Respiratory: Negative for shortness of breath, cough, wheezing, and pleuritic chest pain, Abdomen/GI: Negative for abdominal pain, nausea, vomiting, diarrhea, and constipation, Back: Negative for injury and pain, MS/Extremity: Negative for injury and deformity, Skin: Negative for injury, rash, and discoloration, Neuro: Negative for headache, weakness, numbness, tingling, and seizure, Psych: Negative for depression, anxiety, suicide ideation, homicidal ideation, and hallucinations, Allergy/Immunology: Negative for hives, rash, and allergies, Endocrine: Negative for neck swelling, polydipsia, polyuria, polyphagia, and marked weight changes, Hematologic/Lymphatic: Negative for swollen nodes, abnormal bleeding, and unusual bruising. 06:58 Abdomen/GI: Positive for nausea and vomiting, nausea, vomiting. Exam: 06:58 Constitutional: This is a well developed, well nourished patient who is awake, alert, ashok and in no acute distress. Head/Face: Normocephalic, atraumatic. Eyes: Pupils equal round and reactive to light, extra-ocular motions intact. Lids and lashes normal. Conjunctiva and sclera are non-icteric and not injected. Cornea within normal limits. Periorbital areas with no swelling, redness, or edema. ENT: Nares patent. No nasal discharge, no septal abnormalities noted. Tympanic membranes are normal and external auditory canals are clear. Oropharynx with no redness, swelling, or masses, exudates, or evidence of obstruction, uvula midline. Mucous membranes moist. Neck: Trachea midline, no thyromegaly or masses palpated, and no cervical lymphadenopathy. Supple, full range of motion without nuchal rigidity, or vertebral point tenderness. No Meningismus. Chest/axilla: Normal chest wall appearance and motion. Nontender with no deformity. No lesions are appreciated. Cardiovascular: Regular rate and rhythm with a normal S1 and S2. No gallops, murmurs, or rubs. Normal PMI, no JVD. No pulse deficits. Respiratory: Lungs have equal breath sounds bilaterally, clear to auscultation and percussion. No rales, rhonchi or wheezes noted. No increased work of breathing, no retractions or nasal flaring. Abdomen/GI: Soft, non-tender, with normal bowel sounds. No distension or tympany. No guarding or rebound. No evidence of tenderness throughout. Back: No spinal tenderness. No costovertebral tenderness. Full range of motion. Skin: Warm, dry with normal turgor. Normal color with no rashes, no lesions, and no evidence of cellulitis. MS/ Extremity: Pulses equal, no cyanosis. Neurovascular intact. Full, normal range of motion. Neuro: Awake and alert, GCS 15, oriented to person, place, time, and situation. Cranial nerves II-XII grossly intact. Motor strength 5/5 in all extremities. Sensory grossly intact. Cerebellar exam normal. Normal gait. Psych: Awake, alert, with orientation to person, place and time. Behavior, mood, and affect are within normal limits. Vital Signs: 05:24 BP 115 / 57; Pulse 100; Temp 97.8; Pulse Ox 100% on R/A; Weight 111.13 kg; Height 5 ft. wm 5 in. (165.10 cm); Pain 7/10; 05:39 Pain 9/10; as6 07:00 BP 122 / 68; Pulse 93; Resp 16; Pulse Ox 100% on R/A; vg1 05:24 Body Mass Index 40.77 (111.13 kg, 165.10 cm) wm Procedures: 09:02 Peripheral line: by aseptic technique a peripheral line was placed in the right rn antecubital vein, U/S guided 22g IV placed by Dr. Wolf, + blood return and easy flush without resistance, patient denies pain. . MDM: 05:05 Patient medically screened. [facility] 06:59 Differential diagnosis: pancreatitis, diverticulitis, gastroenteritis. Data reviewed: [facility] vital signs, nurses notes, lab test result(s), CBC, electrolytes, hepatic panel. 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 Counseling: I had a detailed discussion with the patient and/or guardian regarding: the historical points, exam findings, and any diagnostic results supporting the discharge/admit diagnosis, lab results. 09:14 Response to treatment: the patient's symptoms have markedly improved after treatment, rn and as a result, I will discharge patient. ED course: Multiple lines have blown, U/S IV that I placed ultimately infiltrated after working initially. Patient states feels better and does not want another IV, wants to go home. She states she has dealt with this for 15 weeks and knows when to go to hospital. She states plans on going home and if needs to, will return or go to [facility] where she normally goes. Understands risks and benefits to conversation.. 06/21 05:07 Order name: Abo[employer]rh Typing [facility] 06/21 05:07 Order name: Basic Metabolic Panel; Complete Time: 09:14 [facility] 06/21 05:07 Order name: CBC with Diff; Complete Time: 09:14 [facility] 06/21 05:07 Order name: LFT's; Complete Time: 09:14 [facility] 06/21 05:07 Order name: Lipase; Complete Time: 09:14 [facility] 06/21 05:07 Order name: IV Saline Lock; Complete Time: 08: [facility] 06/21 05:07 Order name: Labs collected and sent; Complete Time: 08: [facility] 06/21 05:07 Order name: NPO; Complete Time: 05:42 ashok Administered Medications: 08:36 Not Given (Patient Refused): Zofran (Ondansetron) 4 mg IVP once; over 2 minutes vg1 09:08 Drug: Phenergan (promethazine) 12.5 mg Route: IVP; Site: left antecubital; vg1 09:35 Follow up: Response: No adverse reaction; No change in condition vg1 09:36 Not Given (unable to get IV accesss): NS 0.9% 1000 ml IV at 1 bolus Per protocol; 1000 vg1 mL bolus 09:36 Not Given (unable to get IV accesss): NS 0.9% 1000 ml IV at 1 bolus Per protocol; 1000 vg1 mL bolus Disposition Summary: 06/21/21 09:16 Discharge Ordered Location: Home rn Problem: an ongoing problem rn Symptoms: have improved rn Condition: Stable rn Diagnosis - Hyperemesis gravidarum with metabolic disturbance rn - Hypokalemia rn Followup: rn - With: Private Physician - When: As needed - Reason: Recheck today's complaints, Re-evaluation by your physician Discharge Instructions: - Discharge Summary Sheet rn - Hyperemesis Gravidarum rn - Hypokalemia rn Forms: - Medication Reconciliation Form rn - Thank You Letter rn - Antibiotic furniture fabricator - Prescription Opioid Use rn Signatures: Dispatcher [employer] Jean Carlos Messina MD MD cha Nieto, Roman, MD MD rn Garcia, Victoria, RN RN vg1 Enrique Nix, RN RN as6
[2021-06-21 09:44] VITALS: TEMP 97.8; O2SAT 100
[2021-06-21 09:45] VITALS: BP 122/68
== END 2021-06-21 09:36 | disposition home or self-care (01) ==
LOC: ER 05:02
DX: O21.1 Hyperemesis gravidarum with metabolic disturbance (principal); Z3A.15 15 weeks gestation of pregnancy; Z88.8 Allergy status to other drugs, medicaments and biological substances
CPT/HCPCS: 85025; 80048; 36415; 86900; 86901; 80076; 83690; J2550; J7030; 96374; 99284; J2405

== ENCOUNTER 2021-08-11 08:41 | Emergency (ER) | payer OTHER ==
--- OUTSIDE RECORDS SUMMARY | 2021-08-11 08:43 | XMS REPORT | Continuity of Care Document ---
:1995 Author Organization [facility] t Address [address] [place] [address] Care Team Providers Name Role Phone Demetri Carlisle Primary Care Physician He BOND R Attending Clinician Ultrasound Attending Clinician Unavailable Ken VARGAS F Attending Clinician Demario ROMEO Attending Clinician Unavailable Lab Attending Clinician Unavailable Payers Payer Name Policy Type Policy Number Effective Date Expiration Date S ource Problems Condition Condition Condition Status Onset Resolution Last Treating Co mments Source Name Details Category Date Date Treatment Clinician Date Urinary Urinary Disease Active Univers tract tract 6-02 [place] of infection [place] without 00 [place] hematuria, hematuria, Br anch site site unspecifie unspecifie d d Papanicola Papanicola Disease Active Overview : Univers ou smear ou smear 5-18 Formattin ity of of cervix of cervix 00:00: [place] of this [place] with low with low 00 note Medica l grade grade might be Branch squamous squamous different intraepith intraepith from the daryl brito original. lesion lesion LGSIL in (LGSIL) (LGSIL) 2021 needs repeat pap smear in 2022. Vomiting Vomiting Disease Active Unive rs 5-10 ity of 00:00: [place] [address] [place] [address] Branch Hyperemesi Hyperemesi Disease Active 2022-0 U nivers s s 5-10 ity of 00:00: [place] [facility] Tetrahydro Tetrahydro Disease Active 0 U nivers cannabinol cannabinol 5-10 it y of (THC) use (THC) use 00:00: [place] disorder, disorder, 00 [facility] mild, mild, Branch abuse abuse Supervisio Supervisio Disease Active U nivers n of high n of high 5-05 ity of risk risk 00:00: [place] , , 00 Me dical antepartum antepartum Br anch Primigravi Primigravi Disease Active U nivers da in da in 5-05 ity of second second 00:00: [place] trimester trimester 00 [facility] Branch Obesity in Obesity in Disease Active U nivers 5-05 ity of 00:00: [place] 00 Medical Branch Vitamin D Vitamin D Disease Active Uni vers deficiency deficiency 4-26 it y of 00:: [place] [facility] Hyperbilir Hyperbilir Disease Active U nivers ubinemia ubinemia 4-25 ity of 00:00: [place] [facility] Hypomagnes Hypomagnes Disease Active U nivers emia emia 4-25 ity of 00:00: [place] [facility] Hypocalcem Hypocalcem Disease Active U nivers ia ia 4-25 ity of 00:00: [place] [facility] Chronic Chronic Disease Active Univers hypertensi hypertensi 4-24 it y of on on 00:00: [place] affecting affecting 00 [facility] Bran ch Morbid Morbid Disease Active Univers obesity obesity 4-23 ity of with body with body 00:00: [place] mass index mass index 00 Me dical of of Branch 40.0-49.9 40.0-49.9 BMI BMI Disease Active Univers 38.0-38.9, 38.0-38.9, 4-12 it y of adult adult 00:00: [place] 00 Medical Branch Hypokalemi Hypokalemi Disease Active 0 U nivers a a 4-12 ity of 00:00: [place] [facility] Hyponatrem Hyponatrem Disease Active 2021-0 U nivers ia ia 4-12 ity of 00:00: [place] [facility] Tachycardi Tachycardi Disease Active U nivers a a 4-12 ity of 00:00: [place] [facility] E46 E46 Disease Active Univers Unspecifie Unspecifie 4-12 it y of d severe d severe 00:00: [place] protein-ca protein-ca 00 Me dical ashwendy aleman [place] malnutriti malnutriti on on Nausea and Nausea and Disease Active U nivers vomiting vomiting 4-12 ity of in in 00:00: [place] 00 Medi leidy prior to prior to Branch 22 weeks 22 weeks gestation gestation 15 weeks 15 weeks Disease Active Unive rs gestation gestation 4-12 ity of of of 00:00: [place] 00 [facility] Branch Allergies, Adverse Reactions, Alerts Allergy Allergy Status Severity Reaction(s) Onset Inactive Treating Comm ents Source Name Type Date Date Clinician Egg Propensi Active Unknown - Unive rs ty to See comments 5-11 ity of adverse 00:00: [place] reaction 00 Medical s Branch EGG DRUG Active Unknown-Cmnt Univ ers INGREDI 5-11 ity of 00:00: [place] 00 Medical Branch Metoclop Drug Active Extra Univers ramide Allergy pyramidal 4-12 ity of effects 00:00: [place] 00 [facility] METOCLOP DRUG Active Med EP Effects Univ ers RAMIDE INGREDI 4-12 ity of 00:00: [address] Social History Social Habit Start Date Stop Date Quantity Comments Source ASSERTION 2021-03-26 [facility] 00:00:00 [facility] Exposure to 2021-07-11 2021-07-21 Not sure [facility] SARS-CoV-2 00:00:00 09:19:00 [facility] (event) [place] Alcohol intake 2021-07-21 2021-07-21 Ex-drinker [facility] 00:00:00 00:00:00 (finding) [facility] Tobacco Comment 2021-06-23 2021-06-23 marijuana,no Univers ity of 00:00:00 00:00:00 nicotine stopped [facility] dical for Branch Tobacco use and 2021-06-23 2021-06-23 Never used Universit y of exposure 00:00:00 00:00:00 [facility] Sex [birth year] Universit y of 00:00:00 00:00:00 [facility] Smoking Status Start Date Stop Date Source Former smoker 2021-06-23 00:00:00 2021-06-23 00:00:00 [facility] Medications Ordered Filled Start Stop Current Ordering Indication Dosage Frequency Signature Comments Components Source Medication Medication Date Date Medication? Clinician (SIG) Name Name proMETHazin Yes [id number] 25mg Take 1 Univers e 25 mg 5-29 tablet by ity of tablet 00:00: mouth [place] 00 every 6 Medical (six) Branch hours as needed for Nausea and Vomiting (N/V). proMETHazin Yes [id number] 25mg Take 1 Univers e 25 mg 5-29 tablet by ity of tablet 00:00: mouth [place] 00 every 6 Medical (six) Branch hours as needed for Nausea and Vomiting (N/V). proMETHazin Yes [id number] 25mg Take 1 Univers e 25 mg 5-29 tablet by ity of tablet 00:00: mouth [place] 00 every 6 Medical (six) Branch hours as needed for Nausea and Vomiting (N/V). proMETHazin 0 Yes [id number] 25mg Take 1 Univers e 25 mg 5-29 tablet by ity of tablet 00:00: mouth [place] 00 every 6 Medical (six) Branch hours as needed for Nausea and Vomiting (N/V). promethazin 0 Yes [id number] 12.5mg Take 10 mL Univers e 6.25 mg/5 5-24 by mouth ity of mL solution 00:00: every 4 [place] as 00 (four) Medical hours as Branch needed for Nausea and Vomiting (N/V). promethazin 2021-0 Yes [id number] 12.5mg Take 10 mL Univers e 6.25 mg/5 5-24 by mouth ity of mL solution 00:00: every 4 [place] as 00 (four) Medical hours as Branch needed for Nausea and Vomiting (N/V). promethazin 2021-0 Yes [id number] 12.5mg Take 10 mL Univers e 6.25 mg/5 5-24 by mouth ity of mL solution 00:00: every 4 [place] 00 (four) Medical hours as Branch needed for Nausea and Vomiting (N/V). promethazin Yes [id number] 12.5mg Take 10 mL Univers e 6.25 mg/5 5-24 by mouth ity of mL solution 00:00: every 4 [place] 00 (four) Medical hours as Branch needed for Nausea and Vomiting (N/V). proMETHazin Yes [id number] 25mg Insert 1 Univers e 25 mg 5-04 Suppos[place] ity of suppository 00:00[place] rectum Medical every 4 Branch (four) hours as needed for Nausea and Vomiting (N/V). proMETHazin Yes [id number] 25mg Insert 1 Univers e 25 mg 5-04 Suppositor ity of suppository 00:00: [place] rectum Medical every 4 Branch (four) hours as needed for Nausea and Vomiting (N/V). proMETHazin Yes [id number] 25mg Insert 1 Univers e 25 mg 5-04 Suppositor ity of suppository 00:00: [place] rectum Medical every 4 Branch (four) hours as needed for Nausea and Vomiting (N/V). proMETHazin Yes [id number] 25mg Insert 1 Univers e 25 mg 5-04 Suppositor ity of suppository 00:00: [place] rectum Medical every 4 Branch (four) hours as needed for Nausea and Vomiting (N/V). Vital Signs Vital Name Observation Time Observation Value Comments Source Systolic blood 2021-07-21 14:19:00 121 [facility] 2021-07-21 14:19:00 70 mm[Hg] [facility] Heart rate 2021-07-21 14:19:00 105 /min [facility] acute hospital Body temperature 2021-07-21 14:19:[address] [facility] Respiratory rate 2021-07-21 14:19:00 16 /min [facility] Body height 2021-07-21 14:19:00 165.1 cm [facility] acute hospital Body weight 2021-07-21 14:19:00 104.917 kg [facility] acute hospital BMI 2021-07-21 14:19:00 38.49 kg/m2 General acute hospital Procedures Procedure Date / Time Performed Performing Clinician Sourc e POCT URINALYSIS 2021-07-21 14:21:00 Rodrick Cutler [facility] Encounters Start End Encounter Admission Attending Care Care Encounter Source Date/Time Date/Time Type Type Clinicians Facility Department ID 2021-10-21 2021-10-21 Outpatient R [facility] [id number] Univers 10:00:00 [facility]00:00 [id number] 2021-08-02 2021-08-02 Abstract He [facility] [id number] Univers 00:00:00 00:00:00 Rodrick Mosquera 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o [facility] [id number] [place] MATERNAL [id number] Med ical & CHILD [address] [facility] 2021-07-29 2021-07-29 Outpatient P KEN [facility] [id number] Univers 09:30:00 09:30:00 [facility] 2021-07-29 2021-07-29 Preparole Counseling Aide Lab, Ang-Rmchp [facility] [id number]. [id number] Univers 08:00:00 08:36:27 Visit Rodrick Cutler CERTIFIED CORPORATE TRAVEL EXECUTIVE [id number] [place] MATERNAL [id number] Med ical & CHILD [address] [place] [address] 2021-07-21 2021-07-21 Routine He [facility] [id number] Univers 09:00:00 10:12:55 Rodrick R CERTIFIED CORPORATE TRAVEL EXECUTIVE [id number] ity of Visit [facility] [id number] [place] MATERNAL [id number] Med ical & CHILD [address] [place] [address] Results Test Description Test Time Test Comments Results Result Comments Source POCT URINALYSIS W SPECIFIC GRAVITY 2021-07-21 14:21:00 Test Item Value Reference Range Interpretation Comme nts POCT U SP GRAV (test code = 3255) . 1.005-1.025 POCT PH U (test code = 3254) . 5-8 POCT U LEUK EST (test code = 3263) . Negative - Negative POCT U NIT (test code = 3262) . Negative - Negative POCT U PROT (test code = 3259) trace Negative - Negative POCT U GLU (test code = 3256) neg Negative - Negative POCT U KETONE (test code = 3258) . Negative - Negative POCT U UROBILI (test code = 3260) . 0.2-1 POCT U BILI (test code = 3261) . Negative - Negative POCT U BLD (test code = 3257) . Negative - Negative POCT U COLOR (test code = 3266) POCT U APPEAR (test code = 3267) [facility]
[2021-08-11 09:24] LABS: Urine Blood Negative (Negative); Urine Glucose Negative (Negative); Urine Protein 1+ (Negative); Urine pH 7.5 (5.0-7.0)
--- NOTE | 2021-08-11 09:45 | EDPHYS ---
Physician Documentation [facility] Name: Robin Bernard Age: 25 yrs Sex: Female : 1995 Arrival Date: 08/11/2021 Time: 08:42 Bed 7 Private MD: ED Physician Demond Benitez HPI: 08/11 08:55 This 25 yrs old Black Female presents to ER via Ambulatory with complaints of Urinary cp Problem. 08:55 The patient presents to the emergency department with urinary symptoms, dysuria. The cp estimated gestational age is 21 weeks. course: care: private OB physician, Leakage of Fluid: none appreciated. Associated signs and symptoms: Pertinent positives: lower back pain, Pertinent negatives: abdominal pain, fever, ruptured membranes, vaginal bleeding. 08:55 Patient reports she is approximately 21 weeks with first . 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 - Social history:: Smoking status: Patient denies any tobacco usage or history of. ROS: 09:00 Constitutional: Negative for body aches, chills, fever, poor PO intake. cp 09:00 Eyes: Negative for injury, pain, redness, and discharge. cp 09:00 Neck: Negative for pain with movement, pain at rest, stiffness. 09:00 Cardiovascular: Negative for chest pain, palpitations. 09:00 Respiratory: Negative for cough, shortness of breath, wheezing. 09:00 Abdomen/GI: Negative for abdominal pain, vomiting, diarrhea, constipation. 09:00 Back: Positive for pain at rest, of the low back area. 09:00 : Positive for burning with urination. 09:00 Neuro: Negative for altered mental status, headache, weakness. 09:00 All other systems are negative. Exam: 09:05 Constitutional: The patient appears in no acute distress, alert, awake, non-toxic, well cp developed, well nourished, overweight 09:05 Head/Face: Normocephalic, atraumatic. cp 09:05 Cardiovascular: Rate: normal. 09:05 Respiratory: the patient does not display signs of respiratory distress, Respirations: normal, no use of accessory muscles, no retractions, labored breathing, is not present. 09:05 Abdomen/GI: Inspection: abdomen appears normal, Bowel sounds: active, all quadrants, Palpation: soft, in all quadrants, mild abdominal tenderness, in the suprapubic area, rebound tenderness, is not appreciated, involuntary guarding, is not appreciated. 09:05 Back: pain, that is very mild, of the low back area, ROM is normal, CVA tenderness, is absent. 09:05 Neuro: Orientation: to person, place \T\ time. Mentation: is normal, Motor: moves all fours, strength is normal, Gait: is steady, at a normal pace, without difficulty. Vital Signs: 08:44 BP 110 / 59; Pulse 90; Resp 16 S; Temp 97.9(O); Pulse Ox 98% on R/A; Weight 104.33 kg aa5 (R); Height 5 ft. 5 in. (165.10 cm) (R); 08:44 Body Mass Index 38.27 (104.33 kg, 165.10 cm) aa5 MDM: 08:46 Patient medically screened. cp 09:00 Differential diagnosis: STD, pyelonephritis, UTI. cp 09:44 Data reviewed: vital signs, nurses notes, lab test result(s). cp 09:44 Counseling: I had a detailed discussion with the patient and/or guardian regarding: the cp historical points, exam findings, and any diagnostic results supporting the discharge/admit diagnosis, lab results, the need for outpatient follow up, an OB/Gyne specialist, to return to the emergency department if symptoms worsen or persist or if there are any questions or concerns that arise at home. 08/11 08:47 Order name: Urine Microscopic Only; Complete Time: 08:47 cp 08/11 09:24 Order name: Urine --Ancillary (enter results); Complete Time: 09:40 kj1 08/11 08:47 Order name: Urine Dipstick-Ancillary (obtain specimen); Complete Time: 09:22 cp 08/11 09:24 Order name: Urine Dipstick-Ancillary; Complete Time: 09:40 EDMS 08/11 09:41 Interpretation: Normal except: UKET Trace; UPH 7.5; UPROT 1+; UESTR Trace. cp 08/11 08:47 Order name: Urine Test (obtain specimen); Complete Time: : cp 08/11 09:00 Order name: FHT's; Complete Time: 09:17 cp Administered Medications: 10:02 Drug: Rocephin (cefTRIAXone) 1 grams Route: IM; Site: Other; ph 10:18 Follow up: Response: No adverse reaction ph 10:18 Drug: Zofran (Ondansetron) 4 mg Route: PO; ph 10:18 Follow up: Response: No adverse reaction ph Disposition: 12:57 Co-signature as Attending Physician, Demond Benitez MD I agree with the assessment and kdr plan of care. Disposition Summary: 08/11/21 09:44 Discharge Ordered Location: Home cp Problem: new cp Symptoms: have improved cp Condition: Stable cp Diagnosis - Unspecified infection of urinary tract in , second trimester cp Followup: cp - With: Private Physician - When: 1 - 2 days - Reason: Worsening of condition Discharge Instructions: - Discharge Summary Sheet cp - and Urinary Tract Infection cp Forms: - Medication Reconciliation Form cp - Thank You Letter cp - Family Work Release ph - Antibiotic Education cp - Prescription Opioid Use cp Prescriptions: - Macrobid 100 mg Oral Capsule - take 1 capsule by ORAL route every 12 hours for 7 days; 14 capsule; Refills: 0, cp Product Selection Permitted Signatures: Dispatcher [employer] Demond Larry MD MD [facility] Sudha Causey RN RN aa5 Bessy Frias RN RN ph Jean Carlos Ace, PA PA cp
--- NOTE | 2021-08-11 09:45 | ER ---
Nurse's Notes [facility] Name: Robin Bernard Age: 25 yrs Sex: Female : 1995 Arrival Date: 08/11/2021 Time: 08:42 Bed 7 Private MD: Diagnosis: Unspecified infection of urinary tract in , second trimester Presentation: 08/11 08:44 Chief complaint: Patient states: urinary frequency, urgency, and pain with urination aa5 that began yesterday. Pt reports being 21 wks , denies vaginal bleeding. 08:44 Initial Sepsis Screen: Does the patient meet any 2 criteria? No. Patient's initial aa5 sepsis screen is negative. Does the patient have a suspected source of infection? No. Patient's initial sepsis screen is negative. 08:44 Acuity: BOZENA 3 aa5 08:44 Coronavirus screen: At this time, the client does not indicate any symptoms associated aa5 with coronavirus-19. 08:45 Ebola Screen: No symptoms or risks identified at this time. Risk Assessment: Do you ph want to hurt yourself or someone else? Patient reports no desire to harm self or others. Onset of symptoms was August 11, 2021. 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 - Social history:: Smoking status: Patient denies any tobacco usage or history of. Screenin:45 Abuse screen: Denies threats or abuse. Denies injuries from another. Nutritional ph screening: No deficits noted. Tuberculosis screening: No symptoms or risk factors identified. Fall Risk None identified. Assessment: 09:00 General: Appears in no apparent distress. Behavior is calm, cooperative. jh6 09:00 Pain: Complains of pain in groin Pain currently is 2 out of 10 on a pain scale. Pain jh6 began 2-3 days ago. Is intermittent, Aggravated by voiding. 10:17 Reassessment: Patient appears in no apparent distress at this time. Patient and/or ph family updated on plan of care and expected duration. Pain level reassessed. Patient is alert, oriented x 3, equal unlabored respirations, skin warm/dry/pink. Vital Signs: 08:44 BP 110 / 59; Pulse 90; Resp 16 S; Temp 97.9(O); Pulse Ox 98% on R/A; Weight 104.33 kg aa5 (R); Height 5 ft. 5 in. (165.10 cm) (R); 08:44 Body Mass Index 38.27 (104.33 kg, 165.10 cm) 5 ED Course: 08:42 Patient arrived in ED. rg4 08:43 Jean Carlos Ace PA is PHCP. cp 08:43 Demond Benitez MD is Attending Physician. cp 08:43 Demond Benitez MD is Attending Physician. cp 08:44 Bessy Frias RN is Primary Nurse. ph 08:44 Arm band placed on Patient placed in an exam room. ph 09:00 Bed in low position. Call light in reach. Side rails up X 1. Adult w/ patient. 6 09:00 Urine collected: clean catch specimen, clear. 6 09:01 Triage completed. aa 09:10 FHT 149. 6 09:51 No provider procedures requiring assistance completed. Patient did not have IV access ss during this emergency room visit. Administered Medications: 10:02 Drug: Rocephin (cefTRIAXone) 1 grams Route: IM; Site: Other; ph 10:18 Follow up: Response: No adverse reaction ph 10:18 Drug: Zofran (Ondansetron) 4 mg Route: PO; ph 10:18 Follow up: Response: No adverse reaction ph Medication: 08:44 VIS not applicable for this client. ph Outcome: 09:44 Discharge ordered by MD. cp 09:52 Condition: good ss 09:52 Discharge instructions given to patient, Instructed on discharge instructions, follow up and referral plans. medication usage, Demonstrated understanding of instructions, follow-up care, medications. 10:18 Discharged to home ambulatory, with significant other. ph 10:18 Patient left the ED. ph Signatures: Sudha Causey RN RN 5 Lillian Reyes RN RN Bessy Frias RN RN Jean Carlos Ace PA PA Kate Cohen 4 Hastedt, Zuleima, RN RN jh6
[2021-08-11] MEDS ORDERED: WATER FOR INJ,STERILE 10 ML ONE (09:54)
[2021-08-11] MEDS ORDERED: CEFTRIAXONE 1000 MG/VIAL ONE ×2 (09:54→10:05)
[2021-08-11 10:04] LABS: Urine Amorphous Sediment 2+ /HPF (NONE SEEN); Urine Bacteria <20 /HPF (<20); Urine RBC <5 /HPF (NONE SEEN)
[2021-08-11] MEDS ORDERED: NA CHLORIDE 0.9% 50 ML ONE ×2 (10:04→10:05)
[2021-08-11] MEDS ORDERED: ONDANSETRON 4 MG (ODT) TAB ONE (10:21)
[2021-08-11 10:24] VITALS: BP 110/59; TEMP 97.9; O2SAT 98
== END 2021-08-11 10:18 | disposition home or self-care (01) ==
LOC: ER 08:41
DX: O23.42 Unspecified infection of urinary tract in pregnancy, second trimester (principal); N39.0 Urinary tract infection, site not specified; Z3A.21 21 weeks gestation of pregnancy; Z88.8 Allergy status to other drugs, medicaments and biological substances
CPT/HCPCS: 81003; 81015; 81025; 96372; 99283; Q0162

== ENCOUNTER 2021-11-13 01:02 | Emergency (ER) | payer OTHER ==
--- OUTSIDE RECORDS SUMMARY | 2021-11-13 01:05 | XMS REPORT | Continuity of Care Document ---
:1995 Author Organization [facility] t Address [address] [place] [address] Care Team Providers Name Role Phone Rodrick Carlisle Primary Care Physician [phone] Rodrick Carlisle Attending Clinician RODRICK CULTER Attending Clinician Unavailable Brenda Mccray MD Attending Clinician Fernando Acosta Attending Clinician BRENDA MCCRAY Attending Clinician Unavailable Doctor Unassigned, Brandt Attending Clinician Unavailable Ultrasound, Ang-Mfm Attending Clinician Unavailable Vinh Moncada MD Attending Clinician VINH MONCADA Attending Clinician Unavailable VINH MONCADA Attending Clinician Unavailable Brenda Mccray MD Admitting Clinician BRENDA MCCRAY Admitting Clinician Unavailable Payers Payer Name Policy Type Policy Number Effective Date Expiration Date Alem rodriguez [facility] STAR [id number] 2021 00:00:00 Problems Condition Condition Condition Status Onset Resolution Last Treating Co mments Source Name Details Category Date Date Treatment Clinician Date Elevated Elevated Disease Active Unive rs blood blood 9-08 ity of pressure pressure 00:00: [place] reading reading 00 Medical without without Branch diagnosis diagnosis of of hypertensi hypertensi on on Proteinuri Proteinuri Disease Active U nivers a a 9-08 [place] affecting [place] [facility] in third in third Branch trimester trimester Intractabl Intractabl Disease Active U nivers e nausea e nausea 7-05 ity of and and 00:00: [place] vomiting vomiting 00 Medica l Branch Urinary Urinary Disease Active Univers tract tract [...] 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 (THC) [place] disorder, disorder, 00 [facility] mild, mild, Branch abuse abuse Nausea and Nausea and Disease Active U nivers vomiting vomiting 5-10 ity of during during 00:00: [place] 00 [facility] Branch Supervisio Supervisio Disease Active U nivers n of high n of high 5-05 ity of risk risk 00:00: [place] , , 00 Me dical antepartum antepartum Br anch Primigravi Primigravi Disease Active 0 U nivers da in da in 5-05 ity of second second 00:00: [place] trimester trimester 00 [facility] Obesity in Obesity in Disease Active 0 U nivers 5-05 ity of 00:00: [place] 00 [facility] Branch Vitamin D Vitamin D Disease Active Uni vers deficiency deficiency 4-26 it y of 00:00: [facility] Branch Hyperbilir Hyperbilir Disease Active 2022-0 U nivers ubinemia ubinemia 4-25 ity of 00:: [place] [facility] Hypomagnes Hypomagnes Disease Active U nivers emia emia 4-25 ity of 00:: [place] [facility] Hypocalcem Hypocalcem Disease Active U nivers ia ia 4-25 ity of 00:00: [place] [facility] Chronic Chronic Disease Active Univers hypertensi hypertensi 4-24 it y of on on 00:00: [place] affecting affecting 00 [facility] Bran ch BMI BMI Disease Active Univers 40.0-44.9, 40.0-44.9, 4-23 it y of adult adult 00:00: [place] [facility] BMI BMI Disease Active Univers 39.0-39.9, 39.0-39.9, 4-12 it y of adult adult 00:00: [place] [facility] Hypokalemi Hypokalemi Disease Active U nivers a a 4-12 ity of 00:: [place] [facility] Hyponatrem Hyponatrem Disease Active U nivers ia ia 4-12 ity of 00:00: [place] [facility] Tachycardi Tachycardi Disease Active U nivers a a 4-12 ity of 00:00: [place] 00 Medical Branch E46 E46 Disease Active Univers Unspecifie Unspecifie 4-12 it y of d severe d severe 00:00: [place] protein-ca protein-ca 00 Wi dical ash ash Branch malnutriti malnutriti on on Nausea and Nausea and Disease Active U nivers vomiting vomiting 4-12 ity of in in 00:00: [place] 00 [facility] prior to prior to Branch 22 weeks 22 weeks gestation gestation 15 weeks 15 weeks Disease Active Unive rs gestation gestation 4-12 ity of of of 00:00: [place] 00 [facility] Branch Allergies, Adverse Reactions, Alerts Allergy Allergy Status Severity Reaction(s) Onset Inactive Treating Comm ents Source Name Type Date Date Clinician Egg Propensi Active Unknown - Unive rs ty to See comments 5-11 ity of adverse 00:00: [place] reaction 00 Medical s Branch EGG DRUG Active Unknown-Cmnt Univ ers INGREDI 5-11 ity of 00:00: [place] 00 Medical Branch Metoclop Drug Active Extra Univers ramide Allergy pyramidal 4-12 ity of effects 00:00: [place] 00 Medical Branch METOCLOP DRUG Active Med EP Effects [facility] [place] ers RAMIDE INGREDI 4-12 ity of 00:00: [place] 00 Medical [place] Social History Social Habit Start Date Stop Date Quantity Comments Source ASSERTION 2021-03-26 [facility] 00:00:00 [facility] History of Current smoker University of tobacco use [facility] Exposure to 2021-11-01 2021-11-[address] [facility] SARS-CoV-2 00:00:00 09:56:00 [facility]ly [facility] (event) Davin Alcohol intake 2021-11-11 2021-11-[address] [facility] 00:00:00 00:00:00 (finding) [facility] Tobacco Comment 2021-09-15 2021-09-15 marijuana,no Univers ity of 00:00:00 00:00:00 nicotine stopped [facility] dical for Branch Tobacco use and 2021-09-15 2021-09-15 Smokeless tobacco Un iversity of exposure 00:00:00 00:00:00 non-user [facility] Sex [birth year] Universit y of 00:00:00 00:00:00 [facility] Smoking Status Start Date Stop Date Source Ex-smoker 2021-09-15 00:00:00 2021-09-15 00:00:00 Universi ty of [facility] Medications Ordered Filled Start Stop Current Ordering Indication Dosage Frequency Signature Comments Components Source Medication Medication Date Date Medication? Clinician (SIG) Name Name promethazin Yes [id number] 12.5mg Take 10 mL Univers e 6.25 mg/5 9-21 by mouth ity of mL solution 00:00: every 4 [place] 00 (four) Medical hours as Branch needed for Nausea and Vomiting (N/V). promethazin Yes [id number] 12.5mg Take 10 mL Univers e 6.25 mg/5 9-21 by mouth ity of mL solution 00:00: every 4 [place] 00 (four) Medical hours as Branch needed for Nausea and Vomiting (N/V). promethazin 2021-0 Yes [id number] 12.5mg Take 10 mL Univers e 6.25 mg/5 9-21 by mouth ity of mL solution 00:00: every 4 [place] 00 (four) Medical hours as Branch needed for Nausea and Vomiting (N/V). promethazin 2021-0 Yes [id number] 12.5mg Take 10 mL Univers e 6.25 mg/5 9-21 by mouth ity of mL solution 00:00: every 4 [place] 00 (four) Medical hours as Branch needed for Nausea and Vomiting (N/V). promethazin 2021-0 Yes [id number] 12.5mg Take 10 mL Univers e 6.25 mg/5 9-21 by mouth ity of mL solution 00:00: every 4 [place] 00 (four) Medical hours as Branch needed for Nausea and Vomiting (N/V). promethazin 2021-0 Yes [id number] 12.5mg Take 10 mL Univers e 6.25 mg/5 9-21 by mouth ity of mL solution 00:00: every 4 [place] 00 (four) Medical hours as Branch needed for Nausea and Vomiting (N/V). promethazin 2021-0 Yes [id number] 12.5mg Take 10 mL Univers e 6.25 mg/5 9-21 by mouth ity of mL solution 00:00: every 4 [place] 00 (four) Medical hours as Branch needed for Nausea and Vomiting (N/V). promethazin 2021-0 Yes [id number] 12.5mg Take 10 mL Univers e 6.25 mg/5 8-30 by mouth ity of mL solution 00:00: every 4 [place] 00 (four) Medical hours as Branch needed for Nausea and Vomiting (N/V). promethazin 2021-0 Yes [id number] 12.5mg Take 10 mL Univers e 6.25 mg/5 8-30 by mouth ity of mL solution 00:00: every 4 [place] 00 (four) Medical hours as Branch needed for Nausea and Vomiting (N/V). promethazin 2-0 Yes [id number] 12.5mg Take 10 mL Univers e 6.25 mg/5 8-30 by mouth ity of mL solution 00:00: every 4 [place] 00 (four) Medical hours as Branch needed for Nausea and Vomiting (N/V). promethazin Yes [id number] 12.5mg Take 10 mL Univers e 6.25 mg/5 8-30 by mouth ity of mL solution 00:00: every 4 [place] 00 (four) Medical hours as Branch needed for Nausea and Vomiting (N/V). promethazin Yes [id number] 12.5mg Take 10 mL Univers e 6.25 mg/5 8-30 by mouth ity of mL solution 00:00: every 4 [place] 00 (four) Medical hours as Branch needed for Nausea and Vomiting (N/V). promethazin Yes [id number] 12.5mg Take 10 mL Univers e 6.25 mg/5 8-30 by mouth ity of mL solution 00:00: every 4 [place] 00 (four) Medical hours as Branch needed for Nausea and Vomiting (N/V). promethazin Yes [id number] 12.5mg Take 10 mL Univers e 6.25 mg/5 8-30 by mouth ity of mL solution 00:00: every 4 [place] 00 (four) Medical hours as Branch needed for Nausea and Vomiting (N/V). promethazin 2021- No [id number] 12.5mg Take 10 mL Univers e 6.25 mg/5 8-30 09-21 by mouth ity of mL solution 00:00[place] 00:00 [place] 4 [place] (four) Medical hours as Branch needed for Nausea and Vomiting (N/V). promethazin 2021- No [id number] 12.5mg Take 10 mL Univers e 6.25 mg/5 8-30 09-21 by mouth ity of mL solution 00:00: 00:00 [place] 4 [place] :[place] (four) Medical hours as Branch needed for Nausea and Vomiting (N/V). promethazin 0 2021- No [id number] 12.5mg Take 10 mL Univers e 6.25 mg/5 8-11 08-30 by mouth ity of mL solution 00:00: 00:00 [place] 4 [place] :[place] (four) Medical hours as Branch needed for Nausea and Vomiting (N/V). Immunizations Ordered Filled Immunization Date Status Comments Sourc e Immunization Name Name TDAP 2021-09-29 Completed University of 00:00:00 [place] [facility] TDAP 2021-09-29 Completed University of 00:00:00 [place] [facility] TDAP 2021-09-29 Completed University of 00:00:00 [place] [facility] TDAP 2021-09-29 Completed University of 00:00:00 [place] [facility] TDAP 2021-09-29 Completed University of 00:00:00 [place] [facility] TDAP 2021-09-29 Completed University of 00:00:00 [place] [facility] TDAP 2021-09-29 Completed University of 00:00:00 [place] [facility] TDAP 2021-09-29 Completed University of 00:00:00 [place] [facility] TDAP 2021-09-29 Completed University of 00:00:00 [place] [facility] TDAP 2021-09-29 Completed University of 00:00:00 [place] [facility] TDAP 2021-09-29 Completed University of 00:00:00 [place] [facility] TDAP 2021-09-29 Completed University of 00:00:00 [place] [facility] TDAP 2021-09-29 Completed University of 00:00:00 [place] [facility] TDAP 2021-09-29 Completed University of 00:00:00 [facility] Vital Signs Vital Name Observation Time Observation Value Comments Source Systolic blood 2021-11-11 15:03:00 120 mm[Hg] Univer sity of pressure [facility] Diastolic blood 2021-11-11 15:03:00 82 mm[Hg] Unive rsity of [facility] Heart rate 2021-11-11 14:58:00 105 /min [facility] Body temperature 2021-11-11 14:57:00 36.33 Ava [facility] [place] [facility] Res[facility] rate 2021-11-11 14:57:00 18 /min [facility] [place] [facility] Body height 2021-11-11 14:57:00 165.1 cm [facility] Body weight 2021-11-11 14:57:00 113.541 kg [facility] BMI 2021-11-11 14:57:00 41.65 kg/m2 [facility] Systolic blood 2021-10-27 23:55:00 129 mm[Hg] Univer sity of pressure [facility] Diastolic blood 2021-10-27 23:55:00 76 mm[Hg] Unive rsity of pressure [facility] Heart rate 2021-10-27 23:55:00 88 /min Universi ty of [facility] Oxygen saturation in 2021-10-27 23:55:00 96 /min University Arterial blood by [facility] Pulse oximetry Branch Body temperature 2021-10-27 23:14:00 37 Ava [facility] Respiratory rate 2021-10-27 23:14:00 18 /min [facility] Body height 2021-10-27 22:26:00 165.1 cm Universi ty of [facility] Body weight 2021-10-27 22:26:00 111.131 kg Universi ty of [facility] BMI 2021-10-27 22:26:00 40.77 kg/m2 Universi ty [facility] Systolic blood 2021-10-27 18:08:00 140 mm[Hg] Univer sity of pressure [facility] Diastolic blood 2021-10-27 18:08:00 94 mm[Hg] Unive rsity of [facility] Heart rate 2021-10-27 18:07:00 88 /min Universi ty of [facility] Body temperature 2021-10-27 18:07:00 35.61 Ava [facility] Respiratory rate 2021-10-27 18:07:00 18 /min Univ ersity of [facility] Body weight 2021-10-27 18:07:00 110.224 kg Universi ty [facility] BMI 2021-10-27 18:07:00 40.44 kg/m2 Universi ty [facility] Procedures Procedure Date / Time Performed Performing Clinician Sourc e POCT URINALYSIS 2021-11-11 14:58:00 Rodrick Cutler [facility] CONSENT/REFUSAL FOR 2021-10-27 22:13:12 Doctor Unassigned, No Un [facility] DIAGNOSIS AND Name Medical Branch TREATMENT POCT URINALYSIS 2021-10-27 18:21:00 Rodrick Cutler [facility] Encounters Start End Encounter Admission Attending Care Care Encounter Source Date/Time Date/Time Type Type Clinicians Facility Department ID 2021-11-23 2021-11-23 Outpatient R [facility] [id number] Univers 09:45:00 09:45:00 ity of [facility] 2021-11-11 2021-11-11 Routine Cutler [facility] [id number] Univers 09:45:00 10:12:23 Roshunda R RISK PROFESSIONAL [id number] ity of Visit REGIONAL [id number] Fede as MATERNAL [phone] [facility] ical & CHILD [address] [place] [address] 2021-11-11 2021-11-11 Outpatient R CUTLER [facility] [id number] Univers 09:45:00 10:12:23 ROSHUNDA ity o f [facility] 2021-11-11 2021-11-11 [facility] [id number] Univers 09:45:00 09:45:00 ROSDAMARINDA [id number] ity o f [facility] 2021-11-09 2021-11-09 [facility] [id number] Univers 00:00:00 00:00:00 Rosdamarinda R RISK PROFESSIONAL [id number] ity of [employer] [id number] Fede as MATERNAL [id number] [facility] & [address] 2021-11-07 2021-11-07 [facility] [id number] Univers 00:00:00 00:00:00 Roshunda R RISK PROFESSIONAL [id number] ity of REGIONAL [id number] Fede as MATERNAL [phone] [facility] & CHILD [address] [place] [address] 2021-10-27 2021-10-27 Emergency Fish, Brenda [facility] [id number] Univers 17:35:00 19:05:00 Fernando Ramos [place] [id number] ity of [place] 4.2.7.2.686 [place] [facility] [id number] [address] 2021-10-27 2021-10-27 Outpatient X BRENDA MCCRAY [facility] CLEVE [id number] Univers 17:35:00 19:05:00 ity of [facility] 2021-10-27 2021-10-27 Outpatient R YANCI [facility] [id number] Univers 12:45:00 13:34:39 ROSHUNDA ity o f [facility] 2021-10-27 2021-10-27 Routine Yanci [facility] [id number] Univers 12:45:00 13:34:39 Rosdamiona R RISK PROFESSIONAL [id number] ity of Visit REGIONAL [id number] Fede as MATERNAL [phone] Med ical & CHILD [address] [place] [address] 2021-10-27 2021-10-27 Orders Doctor DREW [id number] Univers 00:00:00 00:00:00 Only Unassigned, CASEY [id number] ity of Brandt [facility] [id number] Fede as [phone] [address] 2021-10-26 2021-10-26 Abstract Yanci [facility] [id number] Univers 00:00:00 00:00:00 Roscarrol Mosquera RISK PROFESSIONAL [id number] ity of REGIONAL [id number] Fede as MATERNAL [phone] [facility] ical & CHILD [address] [place] [address] 2021-10-21 2021-10-21 [employer] Manager Ultrasound, Dior [facility] 1.2 .840.114 [id number] Univers 09:45:00 10:30:00 Visit Vinh Moncada RISK PROFESSIONAL [id number] ity of REGIONAL [id number] Fede as MATERNAL [phone] [facility] ical & CHILD [address] [facility] 2021-10-21 2021-10-21 Outpatient P VINH MONCADA [facility] [id number] Univers 09:45:00 09:45:00 VINH MONCADA ity of [facility] 2021-10-18 2021-10-18 Telephone Yanci [facility] [id number] Univers 00:00:00 00:00:00 Rodrick Mosquera RISK PROFESSIONAL [id number] ity [facility] [id number] Fede as MATERNAL [phone] Med ical & CHILD [address] [place] [address] 2021-07-21 2021-07-21 Outpatient R YANCI [facility] [id number] Univers 09:00:00 10:12:55 RODRICK bailey o f [facility] Results Test Description Test Time Test Comments Results Result Comments Source POCT URINALYSIS W SPECIFIC GRAVITY 2021-11-11 14:58:00 Test Item Value Reference Range Interpretation Comme nts POCT U SP GRAV (test code = 3255) . 1.005-1.025 POCT PH U (test code = 3254) . 5-8 POCT U LEUK EST (test code = 3263) . Negative - Negative POCT U NIT (test code = 3262) . Negative - Negative POCT U PROT (test code = 3259) Trace Negative - Negative POCT U GLU (test code = 3256) Neg Negative - Negative POCT U KETONE (test code = 3258) . Negative - Negative POCT U UROBILI (test code = 3260) . 0.2-1 POCT U BILI (test code = 3261) . Negative - Negative POCT U BLD (test code = 3257) . Negative - Negative POCT U COLOR (test code = 3266) POCT U APPEAR (test code = 3267) [facility] [id number] 14:58:00 Test Item Value Reference Range Interpretation Comments POCT U SP GRAV (test code = 3255) . 1.005-1.025 POCT PH U (test code = 3254) . 5-8 POCT U LEUK EST (test code = 3263) . Negative - Negative POCT U NIT (test code = 3262) . Negative - Negative POCT U PROT (test code = 3259) Trace Negative - Negative POCT U GLU (test code = 3256) Neg Negative - Negative POCT U KETONE (test code = 3258) . Negative - Negative POCT U UROBILI (test code = 3260) . 0.2-1 POCT U BILI (test code = 3261) . Negative - Negative POCT U BLD (test code = 3257) . Negative - Negative POCT U COLOR (test code = 3266) POCT U APPEAR (test code = 3267) [facility] URINALYSIS W SPECIFIC [id number] 14:58:00 Test Item Value Reference Range Interpretation Comments POCT U SP GRAV (test code = 3255) . 1.005-1.025 POCT PH U (test code = 3254) . 5-8 POCT U LEUK EST (test code = 3263) . Negative - Negative POCT U NIT (test code = 3262) . Negative - Negative POCT U PROT (test code = 3259) Trace Negative - Negative POCT U GLU (test code = 3256) Neg Negative - Negative POCT U KETONE (test code = 3258) . Negative - Negative POCT U UROBILI (test code = 3260) . 0.2-1 POCT U BILI (test code = 3261) . Negative - Negative POCT U BLD (test code = 3257) . Negative - Negative POCT U COLOR (test code = 3266) POCT U APPEAR (test code = 3267) [facility] URINALYSIS W SPECIFIC [id number] 14:58:00 Test Item Value Reference Range Interpretation Comments POCT U SP GRAV (test code = 3255) . 1.005-1.025 POCT PH U (test code = 3254) . 5-8 POCT U LEUK EST (test code = 3263) . Negative - Negative POCT U NIT (test code = 3262) . Negative - Negative POCT U PROT (test code = 3259) Trace Negative - Negative POCT U GLU (test code = 3256) Neg Negative - Negative POCT U KETONE (test code = 3258) . Negative - Negative POCT U UROBILI (test code = 3260) . 0.2-1 POCT U BILI (test code = 3261) . Negative - Negative POCT U BLD (test code = 3257) . Negative - Negative POCT U COLOR (test code = 3266) POCT U APPEAR (test code = 3267) [facility] URINALYSIS W SPECIFIC [id number] 14:58:00 Test Item Value Reference Range Interpretation Comments POCT U SP GRAV (test code = 3255) . 1.005-1.025 POCT PH U (test code = 3254) . 5-8 POCT U LEUK EST (test code = 3263) . Negative - Negative POCT U NIT (test code = 3262) . Negative - Negative POCT U PROT (test code = 3259) Trace Negative - Negative POCT U GLU (test code = 3256) Neg Negative - Negative POCT U KETONE (test code = 3258) . Negative - Negative POCT U UROBILI (test code = 3260) . 0.2-1 POCT U BILI (test code = 3261) . Negative - Negative POCT U BLD (test code = 3257) . Negative - Negative POCT U COLOR (test code = 3266) POCT U APPEAR (test code = 3267) [facility] URINALYSIS W SPECIFIC [id number] 18:21:00 Test Item Value Reference Range Interpretation Comments POCT U SP GRAV (test code = * 1.005-1.025 3255) POCT PH U (test code = 3254) * 5-8 POCT U LEUK EST (test code = * Negative - Negative 3263) POCT U NIT (test code = 3262) * Negative - Negative POCT U PROT (test code = 3259) 1+ Negative - Negative POCT U GLU (test code = 3256) negative Negative - Negative POCT U KETONE (test code = 3258) * Negative - Negative POCT U UROBILI (test code = * 0.2-1 3260) POCT U BILI (test code = 3261) * Negative - Negative POCT U BLD (test code = 3257) * Negative - Negative POCT U COLOR (test code = 3266) * POCT U APPEAR (test code = 3267) [facility]
[2021-11-13 01:49] LABS: Absolute Lymphocytes (CBC) 2.4 K/uL (0.7-4.9); Hematocrit 36.2 % (36.0-45.0); Lymphocytes % 17.2 % (15.3-44.8); MCV 94.5 fL (80-100); MPV 7.9 fL (7.6-11.3); RBC Red Blood Cell Count 3.83 M/uL (3.86-4.86)
[2021-11-13 02:06] LABS: Albumin 2.6 g/dL (3.4-5.0); Bilirubin Total 0.6 mg/dL (0.2-1.0); Potassium 3.4 mmol/L (3.5-5.1); Protein, Total 6.9 g/dL (6.4-8.2)
[2021-11-13] MEDS ORDERED: NA CHLORIDE 0.9% 1,000 ML ONE (02:13)
[2021-11-13] MEDS ORDERED: PROMETHAZINE INJ 25 MG/ML AMP ONE (02:14)
[2021-11-13] MEDS ORDERED: CYCLOBENZAPRINE 10 MG TAB ONE (02:14)
[2021-11-13] MEDS ORDERED: ACETAMINOPHEN 500 MG TAB ONE (02:14)
[2021-11-13] MEDS ORDERED: ONDANSETRON 4 MG/2 ML VIAL ONE (02:44)
[2021-11-13 02:49] LABS: Urine Blood Negative (Negative); Urine Glucose Negative (Negative); Urine Protein 1+ (Negative); Urine Specific Gravity >=1.030 (1.005-1.030)
[2021-11-13 03:04] LABS: Urine Mucus 1+ /HPF (None Seen); Urine RBC <5 /HPF (None Seen)
--- NOTE | 2021-11-13 03:45 | EDPHYS ---
Physician Documentation [facility] Name: Robin Bernard Age: 26 yrs Sex: Female : 1995 Arrival Date: 11/13/2021 Time: 01:03 Bed 8 Private MD: ED Physician Monica Alcazar HPI: 11/13 01:41 This 26 yrs old Black Female presents to ER via Wheelchair with complaints of Back sd2 Pain, Abdominal Pain. 01:41 26 yo F at 35 weeks gestation presents with CC of mid-back and upper abdominal sd2 pain that started this evening with associated nausea and vomiting. Did not take any OTC medications prior to coming. No known trauma. Has not yet picked up her phenergan prescribed for nausea during the . Denies diarrhea or urinary symptoms. Normal movement. No bleeding. Seen at [facility] prior to being sent to ER with normal pelvic exam and monitoring. . 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 - Social history:: Smoking status: Patient/guardian denies using tobacco. ROS: 01:41 Constitutional: Negative for fever, chills, and weight loss, Eyes: Negative for injury, sd2 pain, redness, and discharge, Cardiovascular: Negative for chest pain, palpitations, and edema, Respiratory: Negative for shortness of breath, cough, wheezing. Abdomen/GI: Positive for abdominal pain, nausea, vomiting, Negative for diarrhea. Back: Negative for injury. Positive for pain. : Negative for dysuria, urinary frequency, hesitancy, urgency and hematuria. MS/Extremity: Negative for injury and deformity, Skin: Negative for injury, rash, and discoloration, Neuro: Negative for headache, numbness and tingling. Exam: 01:41 Constitutional: This is a well developed, well nourished patient who is awake, alert, sd2 and in no acute distress. Head/Face: Normocephalic, atraumatic. Eyes: EOMI, normal conjunctiva bilaterally Chest/axilla: Normal chest wall appearance and motion. Nontender with no deformity. Cardiovascular: Regular rate and rhythm with a normal S1 and S2. No gallops, murmurs, or rubs. 2+ distal pulses. Respiratory: Lungs have equal breath sounds bilaterally, clear to auscultation and percussion. No rales, rhonchi or wheezes noted. No increased work of breathing, no retractions or nasal flaring. Abdomen/GI: Soft, non-tender, with normal bowel sounds. No guarding or rebound. No evidence of tenderness throughout. Gravid abdomen. No uterine tenderness. Back: Mid-thoracic spinal tenderness with no stepoffs or deformities. No CVA tenderness. Skin: Warm, dry with normal turgor. Normal color with no rashes, no lesions, and no evidence of cellulitis. MS/ Extremity: Pulses equal, no cyanosis. Neurovascular intact. Full, normal range of motion. Ambulatory without difficulty. Psych: Awake, alert, with orientation to person, place and time. Behavior, mood, and affect are within normal limits. Vital Signs: 01:17 BP 142 / 122; Pulse 102; Resp 20; Temp 98.4(O); Pulse Ox 100% on R/A; Weight 112.04 kg; kd3 Height 5 ft. 5 in. (165.10 cm); Pain 10/10; 03:42 BP 139 / 109; Pulse 70; Resp 16 S; Pulse Ox 100% on R/A; as6 03:47 BP 135 / 102; kd3 01:17 Body Mass Index 41.10 (112.04 kg, 165.10 cm) kd3 MDM: 01:24 Patient medically screened. sd2 01:41 Differential diagnosis: Spinal stenosis, epidural abscess, cauda equina, fracture, sd2 sprain, strain, herniated disc, UTI among others. Data reviewed: vital signs, nurses notes. 03:36 Data reviewed: lab test result(s), radiologic studies. Counseling: I had a detailed sd2 discussion with the patient and/or guardian regarding: the historical points, exam findings, and any diagnostic results supporting the discharge/admit diagnosis, lab results, radiology results, the need for outpatient follow up, to return to the emergency department if symptoms worsen or persist or if there are any questions or concerns that arise at home. Medical screen evaluation completed. EMTALA emergency medical condition absent. ED course: Labs and imaging reviewed. labs with elevated lipase. Otherwise grossly WNCL. Pt feeling improved after treatment with no significant pain and tolerating PO. No clear evidence of pancreatitis at this time. US not back at time that patient is requesting discharge. Advised that I cannot rule out certain pathologies without these results. Pt verbalizes understanding and is agreeable to accept the risks. Pt already previously seen by OB. She states they are aware of and monitoring her elevated blood pressure. There is 1+ protein in the urine. Pt strongly advised to follow up with OBGYN regarding this. Pt requesting discharge due to partner needing to go to work. Pt advised of continued supportive care for symptoms and need for outpatient follow up. Verbalizes understanding of strict return precautions. . 11/13 01:32 Order name: CBC with Diff; Complete Time: 02:16 sd2 11/13 01:32 Order name: CMP; Complete Time: 02:16 sd2 11/13 01:32 Order name: Lipase; Complete Time: 02:16 sd2 11/13 01:32 Order name: Urine Microscopic Only; Complete Time: 03:07 sd2 11/13 02:49 Order name: Urine Dipstick-Ancillary; Complete Time: 03:07 EDMS 11/13 01:32 Order name: Urine Dipstick-Ancillary (obtain specimen); Complete Time: 03:12 sd2 11/13 02:17 Order name: US Abdomen Limited: Eval RUQ and pancreas sd2 Administered Medications: 01:52 Drug: Phenergan (promethazine) 12.5 mg Route: IVP; Site: right antecubital; aa9 03:12 Follow up: Response: No adverse reaction aa9 01:52 Drug: NS 0.9% 1000 ml Route: IV; Rate: 1 bolus; Site: right antecubital; aa9 02:44 Drug: Zofran (Ondansetron) 4 mg Route: IVP; Site: right antecubital; kd3 03:11 Follow up: Response: No adverse reaction; Nausea is decreased aa9 03:12 Drug: Tylenol 1000 mg Route: PO; aa9 03:12 Drug: Flexeril (cyclobenzaprine) 10 mg Route: PO; aa9 Disposition Summary: 11/13/21 03:44 Discharge Ordered Location: Home sd2 Problem: new sd2 Symptoms: have improved sd2 Condition: Stable sd2 Diagnosis - Thoracic Back Pain sd2 - Nausea and vomiting in third trimester of sd2 - Upper abdominal pain in sd2 Followup: sd2 - With: Private Physician - When: 2 - 3 days - Reason: Recheck today's complaints, Continuance of care, Re-evaluation by your physician Discharge Instructions: - Discharge Summary Sheet sd2 - Nausea and Vomiting, Adult sd2 - Back Pain in sd2 - Hypertension During sd2 Forms: - Medication Reconciliation Form sd2 - Thank You Letter sd2 - Antibiotic Education sd2 - Prescription Opioid Use sd2 Signatures: Dispatcher [employer] EDMyra De Paz RN RN kd3 Monica Alcazar MD MD sd2 Melyssa Ryan RN RN aa9 Corrections: (The following items were deleted from the chart) 03:43 03:36 ED course: Labs and imaging reviewed. labs with elevated lipase. Otherwise sd2 grossly WNCL. Pt feeling improved after treatment with no significant pain and tolerating PO. No clear evidence of pancreatitis at this time. Pt requesting discharge due to partner needing to go to work. Pt advised of continued supportive care for symptoms and need for outpatient follow up. Verbalizes understanding of strict return precautions. . sd2 03:49 03:36 ED course: Labs and imaging reviewed. labs with elevated lipase. Otherwise sd2 grossly WNCL. Pt feeling improved after treatment with no significant pain and tolerating PO. No clear evidence of pancreatitis at this time. US not back at time that patient is requesting discharge. Advised that I cannot rule out certain pathologies without these results. Pt verbalizes understanding and is agreeable to accept the risks. Pt requesting discharge due to partner needing to go to work. Pt advised of continued supportive care for symptoms and need for outpatient follow up. Verbalizes understanding of strict return precautions. . sd2
--- NOTE | 2021-11-13 03:45 | ER ---
Nurse's Notes [facility] Name: Robin Bernard Age: 26 yrs Sex: Female : 1995 Arrival Date: 11/13/2021 Time: 01:03 Bed 8 Private MD: Diagnosis: Thoracic Back Pain;Nausea and vomiting in third trimester of ;Upper abdominal pain in Presentation: 11/13 01:17 Chief complaint: Patient states: I am 35 weeks and I suddenly had real bad kd3 stomach pain with nausea and vomiting that started around 10:45 while I was watching TV. This is my first . I went to [facility] and they told me to come down here. Coronavirus screen: Vaccine status: Patient reports being unvaccinated. Ebola Screen: No symptoms or risks identified at this time. Initial Sepsis Screen: Does the patient meet any 2 criteria? No. Patient's initial sepsis screen is negative. Does the patient have a suspected source of infection? No. Patient's initial sepsis screen is negative. Risk Assessment: Do you want to hurt yourself or someone else? Patient reports no desire to harm self or others. Onset of symptoms was November 13, 2021. 01:17 Method Of Arrival: Wheelchair kd3 01:17 Acuity: BOZENA 3 kd3 Triage Assessment: 01:21 General: Appears uncomfortable, Behavior is cooperative, anxious. Pain: Complains of kd3 pain in abdomen. Neuro: Level of Consciousness is awake, alert, obeys commands, Oriented to person, place, time, situation. Respiratory: Airway is patent Trachea midline Respiratory effort is even, unlabored, Respiratory pattern is regular, symmetrical. Musculoskeletal: Circulation, motion, and sensation intact. 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 - Social history:: Smoking status: Patient/guardian denies using tobacco. Screenin: Abuse screen: Denies threats or abuse. Denies injuries from another. Nutritional kd3 screening: No deficits noted. Tuberculosis screening: No symptoms or risk factors identified. Fall Risk None identified. Assessment: 03:00 General: Appears uncomfortable, obese, Behavior is agitated, anxious. aa9 03:00 Pain: Complains of pain in back and abdomen. Neuro: Level of Consciousness is awake, aa9 alert, obeys commands, Oriented to person, place, time, situation. Cardiovascular: Patient's skin is warm and dry. Respiratory: Airway is patent Respiratory effort is even, unlabored. Vital Signs: 01:17 BP 142 / 122; Pulse 102; Resp 20; Temp 98.4(O); Pulse Ox 100% on R/A; Weight 112.04 kg; kd3 Height 5 ft. 5 in. (165.10 cm); Pain 10/10; 03:42 BP 139 / 109; Pulse 70; Resp 16 S; Pulse Ox 100% on R/A; as6 03:47 BP 135 / 102; kd3 01:17 Body Mass Index 41.10 (112.04 kg, 165.10 cm) kd3 ED Course: 01:03 Patient arrived in ED. ja2 01:07 Monica Alcazar MD is Attending Physician. sd2 01:11 Enrique Nix, COLE is Primary Nurse. as6 01:21 Triage completed. kd3 01:21 Arm band placed on. kd3 01:22 Patient has correct armband on for positive identification. kd3 01:42 Inserted saline lock: 20 gauge in right antecubital area, using aseptic technique. as6 Blood collected. 01:42 CBC with Diff Sent. as6 01:42 CMP Sent. as6 01:42 Lipase Sent. as6 03:08 US Abdomen Limited: Eval RUQ and pancreas In Process Unspecified. EDMS 03:14 Door closed. Lights dimmed. Warm blanket given. aa9 04:14 No provider procedures requiring assistance completed. IV discontinued, intact, aa9 bleeding controlled, No redness/swelling at site. Pressure dressing applied. Administered Medications: 01:52 Drug: Phenergan (promethazine) 12.5 mg Route: IVP; Site: right antecubital; aa9 03:12 Follow up: Response: No adverse reaction aa9 01:52 Drug: NS 0.9% 1000 ml Route: IV; Rate: 1 bolus; Site: right antecubital; aa9 02:44 Drug: Zofran (Ondansetron) 4 mg Route: IVP; Site: right antecubital; kd3 03:11 Follow up: Response: No adverse reaction; Nausea is decreased aa9 03:12 Drug: Tylenol 1000 mg Route: PO; aa9 03:12 Drug: Flexeril (cyclobenzaprine) 10 mg Route: PO; aa9 Medication: 04:14 VIS not applicable for this client. aa9 Outcome: 03:44 Discharge ordered by . sd2 04:14 Discharged to home ambulatory, with family. aa9 04:14 Condition: stable 04:14 Discharge instructions given to patient, Instructed on discharge instructions, follow up and referral plans. Demonstrated understanding of instructions, follow-up care. 04:15 Patient left the ED. aa9 Signatures: Dispatcher [employer] EDMS Dhara Cruz Ashby, RN RN as6 Myra Mckenzie RN RN [email or web address] Monica Alcazar MD MD sd2 Melyssa Ryan RN RN aa9
[2021-11-14 14:09] VITALS: TEMP 98.4; O2SAT 100
[2021-11-14 14:14] VITALS: BP 135/102
--- NOTE | 2021-11-14 15:28 | RAD REPORT ---
EXAM DESCRIPTION: US - Abdomen Exam Limited - 11/13/2021 3:06 am CLINICAL HISTORY: The patient is 26 years old and is Female; ABD PAIN TECHNIQUE: Real-time limited ultrasound of the gallbladder with image documentation. COMPARISON: No relevant prior studies available. FINDINGS: GALLBLADDER: Layering sludge noted in the gallbladder neck. No posterior shadowing stones. No gallbladder wall thickening. No pericholecystic free fluid. COMMON BILE DUCT: Unremarkable as visualized. No stones. No dilation. Common bile duct measures 0.4 cm in diameter. IMPRESSION: Gallbladder sludge with no stones or sonographic findings to suggest acute cholecystitis . If there is high clinical suspicion for acute acalculous cholecystitis, or to evaluate for possible c hronic cholecystitis or biliary dyskinesia, further evaluation by HIDA scan could be performed. Electronically signed by: Karan Oseguear MD 11/13/2021 3:48 AM CDT Due to temporary technical issues with the PACS/Fluency reporting system, reports are being signed by the in house radiologists without review as a courtesy to insure prompt reporting. The interpreting radiologist is fully responsible for the content of the report.
== END 2021-11-13 04:15 | disposition home or self-care (01) ==
LOC: ER 01:02
DX: O21.9 Vomiting of pregnancy, unspecified (principal); O26.893 Other specified pregnancy related conditions, third trimester; Z3A.35 35 weeks gestation of pregnancy; Z88.7 Allergy status to serum and vaccine
CPT/HCPCS: 85025; 36415; 83690; 80053; 76705; 96375; 96374; 99284; J2550; J7030; J2405; 81003; 81015

== ENCOUNTER 2023-08-14 17:19 | Emergency (ER) | payer OTHER ==
--- OUTSIDE RECORDS SUMMARY | 2023-08-14 17:34 | XMS REPORT | Continuity of Care Document ---
Author Name Unknown Address [address] [facility] [address] [place] [address] [facility] Address [address] [facility] [place] [address] Care Team Providers Care Environmental Health Technologist Name Role Phone Jeimy VARGAS, Jess Primary Care Physician + [phone] JESS MUNSON Attending Clinician UnavailJESS Vann Attending Clinician Unavailab [place] 2, [facility] Attending Clinician Unavailable Ramos PETERS, Ogechukwu Attending Clinician [phone] BONITA TRIVEDI Attending Clinician UnavailBonita Menon DO Attending Clinician [phone] Carlos Ibrahim MD Attending Clinician [phone] Doctor Unassigned, Holly Attending Clinician U NICOLE Aparicio Attending Clinician NICOLE Washington Attending Clinician UnavailKAMILA Deal Attending Clinician Unavailable JACINTA VOSS Attending Clinician Latisha Rivera [facility] Tem Attending Clinician Henrietta vailaMeche Robin Attending Clinician + Jacinta Voss CNM Attending Clinician [phone] MECHE ROBERSON Attending Clinician Unavail able Rodrick Carlisle Attending Clinician Unava DREW Ren Attending Clinician Unavailable RODRICK PETE Attending Clinician Unavailab VANESSA Keene Attending Clinician Unavailable Vanessa Leyva MD Attending Clinician [phone] Wilver Owens MD Attending Clinician LOVE DOWELL Attending Clinician UnavailLOVE Gonzalez Attending Clinician UnavailBRENDA Pedro Attending Clinician Unavailable Brenda Velásquez MD Attending Clinician +[phone] Richard PAC, Fernando Isabel Attending Clinician + [phone] Ultrasound, Dylan-Mfm Attending Clinician Unavaila Vinh Romano MD Attending Clinician [phone] VINH MONCADA Attending Clinician Unavailable VINH MONCADA Attending Clinician Unavailable Ivanna Rodriguez Attending Clinician [phone] Maddie Romeo MD Attending Clinician [phone] MADDIE ROMEO Attending Clinician Unavailable Lab, Ang-Rmchp Attending Clinician Unavailable CARO BAUER Attending Clinician Unavailable Caro Bauer MD Attending Clinician + [phone] Chema PAC, Alayna S Attending Clinician +[phone] ANGUS DWYER Attending Clinician Unavailable Angus Dwyer DO Attending Clinician [phone] JOSE DE JESUS MEDINA Attending Clinician Unavailable Abdullahi Gomez MD Attending Clinician [phone] Foreign Calvillo Attending Clinician + [phone] Jose De Jesus Medina MD Attending Clinician +[phone] Edith Terry MD Attending Clinician + [phone] EDITH TERRY Attending Clinician Unavailable EDITH TERRY Attending Clinician Unavailable VANESSA LEYVA Admitting Clinician Unavailable Vanessa Leyva MD Admitting Clinician +[phone] BRENDA VELÁSQUEZ Admitting Clinician Unavailable Brenda Velásquez MD Admitting Clinician +[phone] Edith Terry MD Admitting Clinician EDITH TERRY Admitting Clinician Unavailable Payers Payer Name Policy Type Policy Number Effective Date Expirati on Date Source TEETEE SQUIRES [id number] 2021 00:00:00 SUPERIOR TAVIA [id number] 2021 00:00:00 Problems Condition Name Condition Details Condition Category Status Onset Date Resolution Date Last Treatment Date Treating Clinician Comments Source GBS (group B Streptococ cus carrier), +RV culture, 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 Will need ABX in labor. [facility] Single liveborn, born in hospital, delivered by vaginal delivery Single liveborn, born in hospital, delivered by vaginal delivery Disease Active 2021-02 0 00:00: 00 [facility] Chronic hypertensi on with superimpos ed preeclamps ia Chronic hypertensi on with superimpos ed preeclamps ia Disease Active 2021-02 0 00:00: 00 [facility] Morbid obesity with body mass index of 40.0-49.9 Morbid obesity with body mass index of 40.0-49.9 Disease Active 2021-02 0- 00:00: 00 [facility] Severe pre-eclamp shena in third trimester Severe pre-eclamp shena in third trimester Disease Active 2021-02 0 00:00: 00 [facility] Elevated blood pressure reading without diagnosis of hypertensi on Elevated blood pressure reading without diagnosis of hypertensi on Disease Active 10-27 00:00: 00 [facility] Proteinuri a affecting in third trimester Proteinuri a affecting in third trimester Disease Active - 00:00: 00 [facility] Intractabl e nausea and vomiting Intractabl e nausea and vomiting Disease Active 7-05 00:00: 00 [facility] Urinary tract infection without hematuria, site unspecifie d Urinary tract infection without hematuria, site unspecifie d Disease Active 6-02 00:00: 00 [facility] Papanicola ou smear of cervix with low grade squamous intraepith elial lesion (LGSIL) Papanicola ou smear of cervix with low grade squamous intraepith elial lesion (LGSIL) Disease Active 18 00:00: 00 Overview: Formattin g of this note might be different from the original. LGSIL in 2021 needs repeat pap smear in 2022. [facility] Tetrahydro cannabinol (THC) use disorder, mild, abuse Tetrahydro cannabinol (THC) use disorder, mild, abuse Disease Active 06-28 00:00: 00 [facility] Hyperemesi s Hyperemesi s Disease Active 06-28 00:00: 00 [facility] Tetrahydro cannabinol (THC) use disorder, mild, abuse Tetrahydro cannabinol (THC) use disorder, mild, abuse Disease Active 06-28 00:00: 00 [facility] Nausea and vomiting during Nausea and vomiting during Disease Active 06-28 00:00: 00 [facility] Supervisio n of high risk , antepartum Supervisio n of high risk , antepartum Disease Active 505 00:00: 00 [facility] Primigravi da in second trimester Primigravi da in second trimester Disease Active 5-05 00:00: 00 [facility] Obesity in Obesity in Disease Active 5-05 00:00: 00 [facility] Vitamin D deficiency Vitamin D deficiency Disease Active - 00:00: 00 [facility] Hyperbilir ubinemia Hyperbilir ubinemia Disease Active 06-13 00:00: 00 [facility] Hypomagnes emia Hypomagnes emia Disease Active 425 00:00: 00 [facility] Hypocalcem ia Hypocalcem ia Disease Active 4-25 00:00: 00 [facility] Chronic hypertensi on affecting Chronic hypertensi on affecting Disease Active 24 00:00: 00 [facility] BMI 40.0-44.9, adult BMI 40.0-44.9, adult Disease Active 06-11 00:00: 00 [facility] Obesity (BMI 30-39.9) Obesity (BMI 30-39.9) Disease Active 05-31 00:00: 00 [facility] Hypokalemi a Hypokalemi a Disease Active 05-31 00:00: 00 [facility] Hyponatrem ia Hyponatrem ia Disease Active 05-31 00:00: 00 [facility] Tachycardi a Tachycardi a Disease Active 05-31 00:00: 00 [facility] E46 Unspecifie d severe protein-ca ash malnutriti on E46 Unspecifie d severe protein-ca ash malnutriti on Disease Active 05-31 00:00: 00 [facility] Nausea and vomiting in prior to 22 weeks gestation Nausea and vomiting in prior to 22 weeks gestation Disease Active 05-31 00:00: 00 [facility] 15 weeks gestation of 15 weeks gestation of Disease Active 05-31 00:00: 00 [facility] Allergies, Adverse Reactions, Alerts Allergy Name Allergy Type Status Severity Reaction(s) Onset Date Inactive Date Treating Clinician Comments Source Egg Propensi ty to adverse reaction s Active Unknown - See comments 06-29 00:00: 00 [facility] EGG DRUG INGREDI Active Unknown-Cmnt 06-29 00:00: 00 [facility] Metoclop ramide Drug Allergy Active Extra pyramidal effects 05-31 00:00: 00 [facility] METOCLOP RAMIDE DRUG INGREDI Active Med EP Effects 05-31 00:00: 00 [facility] Social History Social Habit Start Date Stop Date Quantity Comments Source ASSERTION 2021-03-26 00:00:00 [facility] History of tobacco use Current smoker [facility] Alcoholic beverage intake 2023-08-06 00:00:00 2023-08-06 00:00:00 Ex-drinker (finding) [facility] Alcohol intake 2023-06-21 00:00:00 2023-06-21 00:00:00 Ex-drinker (finding) [facility] Exposure to SARS-CoV-2 (event) 2022-01-10 00:00:00 2022-01-20 14:04:00 Not sure [facility] Tobacco Comment 2021-09-15 00:00:00 2021-09-15 00:00:00 marijuana,no nicotine stopped for [facility] Tobacco use and exposure 2021-09-15 00:00:00 2021-09-15 00:00:00 Smokeless tobacco non-user [facility] History of Social function 2021-06-23 00:00:00 2021-06-23 00:00:00 [facility] Sex assigned at 1995 00:00:00 1995 00:00:00 [facility] Smoking Status Start Date Stop Date Source Ex-smoker 2021-09-15 00:00:00 2021-09-[facility] Medications Ordered Medication Name Filled Medication Name Start Date Stop Date Current Medication? Ordering Clinician Indication Dosage Frequency Signature (SIG) Comments Components Source phentermine 37.5 mg tablet 08-05 00:00: 00 Yes [id number] 37.5mg Take 1 tablet by mouth daily with breakfast. [facility] zolpidem 5 mg tablet 08-05 00:00: 00 Yes [id number] 5mg Take 1 tablet by mouth at bedtime as needed for Insomnia. [facility] traZODone 100 mg tablet 07-24 00:00: 00 Yes [id number] 100mg Take 1 tablet by mouth at bedtime. [facility] acetaminoph en (TYLENOL) tablet 650 mg 06-20 17:30: 00 06-20 17:25 :00 No 650mg 650 mg, Oral, ONCE, 1 dose, On Sun06/21/23 at 1230, RACHAEL [facility] sulfamethox azole-trime thoprim 800-160 mg per tablet 5- 00:00: 00 08-05 00:00 :00 No [id number] 1{tbl} Take 1 tablet by mouth every 12 (twelve) hours. [facility] phentermine 37.5 mg tablet 4-09 00:00: 00 08-05 00:00 :00 No [id number] 37.5mg Take 1 tablet by mouth daily with breakfast. [facility] traZODone 100 mg tablet 0 3-04 00:00: 00 07-24 00:00 :00 No [id number] 100mg Take 1 tablet by mouth at bedtime. [facility] phentermine 37.5 mg tablet 2- 00:00: 00 05-28 00:00 :00 No [id number] 37.5mg Take 1 tablet by mouth daily with breakfast. [facility] zolpidem 5 mg tablet 0 2-15 00:00: 00 08-05 00:00 :00 No [id number] 5mg Take 1 tablet by mouth at bedtime as needed for Insomnia. [facility] phentermine 37.5 mg tablet 0 1-12 00:00: 00 04-11 00:00 :00 No [id number] 37.5mg Take 1 tablet by mouth daily with breakfast. [facility] zolpidem 5 mg tablet 0 1-02 00:00: 00 04-05 00:00 :00 No [id number] 5mg Take 1 tablet by mouth at bedtime as needed for Insomnia. [facility] phentermine 37.5 mg tablet 2022-02 2-08 00:00: 00 03-02 00:00 :00 No [id number] 37.5mg Take 1 tablet by mouth daily with breakfast. [facility] traZODone 100 mg tablet 2022-02 2-06 00:00: 00 04-22 00:00 :00 No [id number] 100mg Take 1 tablet by mouth at bedtime. [facility] phentermine 37.5 mg tablet 2022-02 00:00: 00 01-26 00:00 :00 No [id number] 37.5mg Take 1 tablet by mouth daily with breakfast. [facility] zolpidem 5 mg tablet 2022-02 00:00: 00 02-19 00:00 :00 No [id number] 5mg Take 1 tablet by mouth at bedtime as needed for Insomnia. [facility] TRAZODONE 50 mg tablet 2022-02 00:00: 00 01-24 00:00 :00 No [id number] 50mg TAKE 1 TABLET BY MOUTH EVERYDAY AT BEDTIME [facility] ramelteon 8 mg tablet 2022-02 00:00: 00 01-24 00:00 :00 No [id number] 8mg Take 1 tablet by mouth at bedtime. [facility] Doxepin 6 mg Tab 2022-02 00:00: 00 01-04 00:00 :00 No [id number] 6mg Take 6 mg by mouth at bedtime. [facility] ergocalcife rol, vitamin d2, (VITAMIN D2) 1,250 mcg (50,000 unit) capsule 2022-02 00:00: 00 Yes [id number] 95000Q Take 1 capsule by mouth weekly. [facility] traZODone 50 mg tablet 2022-02 00:00: 00 01-16 00:00 :00 No [id number] 50mg Take 1 tablet by mouth at bedtime. [facility] medroxyPROG ESTERone (DEPO-PROVE RA) syringe 150 mg 2021-02 21:15: 00 01-20 20:41 :00 No [id number] 150mg [facility] NIFEdipine ER 30 mg tablet 2021-02 0 00:00: 00 01-20 00:00 :00 No [id number] 30mg Take 1 tablet by mouth in the morning. [facility] NIFEdipine ER tablet 30 mg 2021-02 0 04:00: 00 Yes 30mg 30 mg, Oral, DAILY, First dose on 11/27/21 at 2300, Until Discontinu ed, Routine [facility] vitamin w/FA tablet 2021-02 00:00: 00 01-20 00:00 :00 No [id number] 1{tbl} Take 1 tablet by mouth in the morning. [facility] docusate 100 mg capsule 2021-02 00:00: 00 01-20 00:00 :00 No [id number] 200mg Take 2 capsules by mouth once daily as needed for Constipati on. [facility] ferrous sulfate 325 mg (65 mg iron) tablet 2021-02 00:00: 00 01-20 00:00 :00 No [id number] 325mg Take 1 tablet by mouth in the morning and 1 tablet in the evening. [facility] ibuprofen 600 mg tablet 2021-02 00:00: 00 01-20 00:00 :00 No [id number] 600mg Take 1 tablet by mouth every 6 (six) hours as needed (Pain). Take with food or milk. [facility] D5W 0.45% NaCl (1/2NS) IV infusion 1,000 mL 2021-02 19:38: 00 Yes 1000mL at 50 mL/hr, 1,000 mL, IV Infusion, CONTINUOUS , Starting on 11/27/21 at 1445, Until Discontinu ed, Routine [facility] HYDROcodone -acetaminop hen (NORCO 5) 5-325 mg tablet 1 tablet 2021-02 12:41: 25 Yes 1{tbl} 1 tablet, Oral, Q6HPRN, Starting on 11/27/21 at 0741, Until Discontinu ed, Routine, Pain (scale 7-10) [facility] ibuprofen (IBU) tablet 600 mg 2021-02 12:41: 25 Yes 600mg 600 mg, Oral, Q6HPRN, Starting on 11/27/21 at 0741, Until Discontinu ed, Routine, Pain (scale 4-6) [facility] acetaminoph en (TYLENOL) tablet 650 mg 2021-02 12:41: 25 Yes 650mg 650 mg, Oral, Q6HPRN, Starting on 11/27/21 at 0741, Until Discontinu ed, Routine, Pain (scale 1-3) [facility] diphenhydrA MINE (BENADRYL) tablet 25 mg 2021-02 12:41: 25 Yes 25mg 25 mg, Oral, Q6HPRN, Starting on 11/27/21 at 0741, Until Discontinu ed, Routine, Sleep, Itching [facility] ondansetron (ZOFRAN (PF)) injection 4 mg 2021-02 12:41: 25 Yes 4mg 4 mg, Slow IV Push, Q8HPRN, Starting on 11/27/21 at 0741, Until Discontinu ed, Routine, Nausea and Vomiting (N/V) [facility] simethicone (GAS RELIEF (SIMETHICON E)) chewable tablet 160 mg 2021-02 12:41: 25 Yes 160mg 160 mg, Oral, PC+HSPRN, Starting on 11/27/21 at 0741, Until Discontinu ed, Routine, Gas [facility] docusate (COLACE) capsule 200 mg 2021-02 12:41: 25 Yes 200mg 200 mg, Oral, QDAILYPRN, Starting on 11/27/21 at 0741, Until Discontinu ed, Routine, Constipati on [facility] magnesium hydroxide (MILK OF MAGNESIA) 400 mg/5 mL suspension 30 mL 2021-02 12:41: 25 Yes 30mL 30 mL, Oral, QDAILYPRN, Starting on 11/27/21 at 0741, Until Discontinu ed, Routine, Constipati on [facility] benzocaine- menthol (DERMOPLAST ) 20-0.5 % topical spray 2021-02 12:41: 25 Yes Topical, PRN, Starting on 11/27/21 at 0741, Until Discontinu ed, Routine, Perineum discomfort [facility] calcium gluconate 100 mg/mL (10%) injection 1,000 mg 2021-02 12:40: 21 Yes 1000mg 1,000 mg, Slow IV Push, PRN - SEE INSTRUCTIO NS, Starting on 11/27/21 at 0740, Until Discontinu ed, Routine, magnesium toxicity [facility] magnesium sulfate 4 mEq/mL (50 %) injection 32.48 mEq 2021-02 12:40: 21 Yes 4g 32.48 mEq (4 g), Slow IV Push, PRN - SEE INSTRUCTIO NS, Starting on 11/27/21 at 0740, Until Discontinu ed, Routine, For seizure activity (patient not on magnesium sulfate) [facility] magnesium sulfate 4 mEq/mL (50 %) injection 16.24 mEq 2021-02 12:40: 21 Yes 2g 16.24 mEq (2 g), Slow IV Push, PRN - SEE INSTRUCTIO NS, 2 doses, Starting on 11/27/21 at 0740, Until Discontinu ed, Routine, For seizure activity (patient already on magnesium sulfate) [facility] labetaloL (NORMODYNE) injection 20 mg 2021-02 12:38: 39 Yes 20mg [Order 1 Start] Name: labetaloL (NORMODYNE ) injection 20 mg Signed Summary: 20 mg, Slow IV Push, PRN - SEE INSTRUCTIO NS, 1 dose, Starting on 11/27/21 at 0738, Until Discontinu ed, Routine, If severe BP persists for 15 min or more, administer Labetalol 20 mg IV slow IV push (over more than 2 min) [Order 1 End] [Order 2 Start] Name: labetaloL (NORMODYNE ) injection 40 mg Signed Summary: 40 mg, Slow IV Push, PRN - SEE INSTRUCTIO NS, 1 dose, Starting on 11/27/21 at 0738, Until Discontinu ed, Routine, If either BP threshold is still exceeded, administer Labetalol 40 mg IV slow IV push (over 2 min). If BP below threshold, continue to monitor BP [Order 2 End] [Order 3 Start] Name: labetaloL (NORMODYNE ) injection 80 mg Signed Summary: 80 mg, Slow IV Push, PRN - SEE INSTRUCTIO NS, 1 dose, Starting on 11/27/21 at 0738, Until Discontinu ed, Routine, If either BP threshold is still exceeded, administer Labetalol 80 mg IV slow IV push (over 2 min). If BP below threshold, continue to monitor BP [Order 3 End] [Order 4 Start] Name: hydralAZIN E (APRESOLIN E) injection 10 mg Signed Summary: 10 mg, Slow IV Push, PRN - SEE INSTRUCTIO NS, 1 dose, Starting on 11/27/21 at 0738, Until Discontinu ed, Routine, If either BP threshold is still exceeded, administer Hydralazin e 10 mg slow IV push (over 2 min).
I ndication: Hypertensi ve Emergency in [Order 4 End] [facility] oxytocin (PITOCIN) 30 units in NS 500 mL IV infusion 2021-02 009 02:10: 24 11-27 12:40 :54 No 2mU/min at 2-40 mL/hr, IV Infusion, TITRATE, Starting on 11/26/21 at 2110, Until 11/27/21 at 0740, Routine [facility] penicillin g pot in dextrose 3 million unit/50 mL RTU iv piggyback 3 Million Units 2021-02 008 22:15: 00 11-27 12:40 :54 No 310 3 Million Units, IV Piggyback, Q4H ABX, First dose on 11/26/21 at 1715, Until Discontinu ed, Administer over 60 Minutes, 50 mL
Reas on for Anti-Infec tive: Empiric Non-Surgic al Prophylaxi s
Durat ion of therapy: 72 hours [facility] fentaNYL-ro pivacaine 2 mcg/mL-0.1 % (PF) in NS 200 mL epidural infusion RTU 2021-02 008 20:46: 00 11-27 13:52 :31 No Epidural, ONCE INTRA PROCEDURE, Starting on 11/26/21 at 1546, Until 11/27/21 at 0852, Routine, Intra-op [facility] lidocaine-e pinephrine (XYLOCAINE W/EPINEPHRI NE) 1.5 %-1:200,000 injection 2021-02 20:43: 00 Yes Epidural, ONCE INTRA PROCEDURE, Starting on 11/26/21 at 1543, Until Discontinu ed, Routine, Intra-op [facility] penicillin g potassium 5 Million Units in NaCl 0.9% (NS) 100 mL MINI-BAG 2021-02 18:15: 00 11-26 19:13 :00 No 510 5 Million Units, IV Piggyback, ONCE, 1 dose, On 11/26/21 at 1315, Administer over 60 Minutes, 100 mL
Reas on for Anti-Infec tive: Empiric Non-Surgic al Prophylaxi s
Durat ion of therapy: 72 hours [facility] NaCl 0.9% (NS) IV infusion 1,000 mL 2021-02 18:00: 00 11-27 12:40 :54 No 1000mL at 50 mL/hr, IV Infusion, CONTINUOUS , Starting on 11/26/21 at 1300, Until 11/27/21 at 0740, Routine [facility] oxytocin (PITOCIN) 30 units in NS 500 mL IV infusion 2021-02 14:31: 25 11-27 02:11 :24 No 2mU/min at 2-40 mL/hr, IV Infusion, TITRATE, Starting on 11/26/21 at 0931, Until 11/26/21 at 2111, Routine [facility] FENTanyl PF (SUBLIMAZE (PF)) injection 100 mcg 2021-02 13:50: 58 11-27 12:40 :54 No 100ug 100 mcg, Slow IV Push, Q1HPRN, Starting on 11/26/21 at 0850, Until 11/27/21 at 0740, Routine, Pain (scale 4-6), Pain (scale 7-10) [facility] misoprostol (CYTOTEC) quarter-tab let 25 mcg 2021-02 13:45: 00 11-26 13:22 :00 No 25ug 25 mcg, Vaginal, ONCE, 1 dose, On 11/26/21 at 0845, Routine [facility] butalbital- acetaminoph en-caff (ESGIC) 50-325-40 mg tablet 1 tablet 2021-02 09:45: 00 11-26 08:57 :00 No 1{tbl} 1 tablet, Oral, ONCE NOW, 1 dose, On 11/26/21 at 0445, Routine [facility] magnesium sulfate in water for injection 20 gram/500 mL (4 %) IV infusion 2021-02 09:00: 00 Yes 2g/h 2 g/hr (50 mL/hr), IV Infusion, CONTINUOUS , Starting on 11/26/21 at 0400, Until Discontinu ed, Routine [facility] D5W 0.45% NaCl (1/2NS) IV infusion 1,000 mL 2021-02 09:00: 00 11-27 12:40 :54 No 1000mL at 75 mL/hr, 1,000 mL, IV Infusion, CONTINUOUS , Starting on 11/26/21 at 0400, Until 11/27/21 at 0740, Routine [facility] promethazin e 6.25 mg/5 mL solution 11-09 00:00: 00 11-28 00:00 :00 No [id number] 12.5mg Take 10 mL by mouth every 4 (four) hours as needed for Nausea and Vomiting (N/V). [facility] promethazin e 6.25 mg/5 mL solution 10-18 00:00: 00 11-09 00:00 :00 No [id number] 12.5mg Take 10 mL by mouth every 4 (four) hours as needed for Nausea and Vomiting (N/V). [facility] promethazin e 6.25 mg/5 mL solution 09-29 00:00: 00 10-18 00:00 :00 No [id number] 12.5mg Take 10 mL by mouth every 4 (four) hours as needed for Nausea and Vomiting (N/V). [facility] promethazin e 6.25 mg/5 mL solution 08-11 00:00: 00 09-15 00:00 :00 No [id number] 12.5mg Take 10 mL by mouth every 4 (four) hours as needed for Nausea and Vomiting (N/V). [facility] proMETHazin e 25 mg tablet 07-17 00:00: 00 09-15 00:00 :00 No [id number] 25mg Take 1 tablet by mouth every 6 (six) hours as needed for Nausea and Vomiting (N/V). [facility] promethazin e 6.25 mg/5 mL solution 06-24 00:00: 00 06-29 00:00 :00 No [id number] 12.5mg Take 10 mL by mouth every 4 (four) hours as needed for Nausea and Vomiting (N/V). [facility] vit 33-iron-fol ic-dha (SELECT-OB + DHA) 29 mg iron-1 mg -250 mg combo pack 06-23 00:00: 00 07-17 00:00 :00 No [id number] 1{packe t} Take 1 Packet by mouth daily. [facility] proMETHazin e 25 mg suppository 06-22 00:00: 00 09-15 00:00 :00 No [id number] 25mg Insert 1 Suppositor y into rectum every 4 (four) hours as needed for Nausea and Vomiting (N/V). [facility] Immunizations Ordered Immunization Name Filled Immunization Name Date Status Comments Source TDAP 2021-09-29 00:00:00 Completed [facility] TDAP 2021-09-29 00:00:00 Completed [facility] TDAP 2021-09-29 00:00:00 Completed [facility] TDAP 2021-09-29 00:00:00 Completed [facility] TDAP 2021-09-29 00:00:00 Completed [facility] TDAP 2021-09-29 00:00:00 Completed [facility] TDAP 2021-09-29 00:00:00 Completed [facility] TDAP 2021-09-29 00:00:00 Completed [facility] TDAP 2021-09-29 00:00:00 Completed [facility] TDAP 2021-09-29 00:00:00 Completed [facility] TDAP 2021-09-29 00:00:00 Completed [facility] TDAP 2021-09-29 00:00:00 Completed [facility] TDAP 2021-09-29 00:00:00 Completed [facility] TDAP 2021-09-29 00:00:00 Completed [facility] TDAP 2021-09-29 00:00:00 Completed [facility] TDAP 2021-09-29 00:00:00 Completed [facility] TDAP 2021-09-29 00:00:00 Completed [facility] TDAP 2021-09-29 00:00:00 Completed [facility] TDAP 2021-09-29 00:00:00 Completed [facility] TDAP 2021-09-29 00:00:00 Completed [facility] TDAP 2021-09-29 00:00:00 Completed [facility] TDAP 2021-09-29 00:00:00 Completed [facility] TDAP 2021-09-29 00:00:00 Completed [facility] TDAP 2021-09-29 00:00:00 Completed [facility] TDAP 2021-09-29 00:00:00 Completed [facility] TDAP 2021-09-29 00:00:00 Completed [facility] Meningococcal Polysaccharide (groups A, C, Y and W-135) conjugate vaccine (MCV4P) Unknown Completed [facility] MMR Unknown Completed [facility] MMR Unknown Completed [facility] IPV Unknown Completed [facility] IPV Unknown Completed [facility] Poliovirus, Live, Oral, Trivalent Unknown Completed [facility] Poliovirus, Live, Oral, Trivalent Unknown Completed [facility] HPV9 Unknown Completed [facility] TDAP Unknown Completed [facility] TDAP Unknown Completed [facility] DTaP, Unspecified Formulation Unknown Completed [facility] DTaP, Unspecified Formulation Unknown Completed [facility] DTaP, Unspecified Formulation Unknown Completed [facility] DTaP, Unspecified Formulation Unknown Completed [facility] HEPATITIS A Unknown Completed [facility] Hep B, Adol or Pedi Dosage Unknown Completed [facility] Hep B, Adol or Pedi Dosage Unknown Completed [facility] Hep B, Adol or Pedi Dosage Unknown Completed [facility] HIB 4 Dose Schedule Unknown Completed [facility] HIB 4 Dose Schedule Unknown Completed [facility] Haemophilus influenzae type b vaccine, conjugate unspecified formulation Unknown Completed [facility] HPV Unknown Completed [facility] Meningococcal Polysaccharide (groups A, C, Y and W-135) conjugate vaccine (MCV4P) Unknown Completed [facility] MMR Unknown Completed [facility] MMR Unknown Completed [facility] IPV Unknown Completed [facility] IPV Unknown Completed [facility] Poliovirus, Live, Oral, Trivalent Unknown Completed [facility] Poliovirus, Live, Oral, Trivalent Unknown Completed [facility] HPV9 Unknown Completed [facility] TDAP Unknown Completed [facility] TDAP Unknown Completed [facility] DTaP, Unspecified Formulation Unknown Completed [facility] DTaP, Unspecified Formulation Unknown Completed [facility] DTaP, Unspecified Formulation Unknown Completed [facility] DTaP, Unspecified Formulation Unknown Completed [facility] HEPATITIS A Unknown Completed [facility] Hep B, Adol or Pedi Dosage Unknown Completed [facility] Hep B, Adol or Pedi Dosage Unknown Completed [facility] Hep B, Adol or Pedi Dosage Unknown Completed [facility] HIB 4 Dose Schedule Unknown Completed [facility] HIB 4 Dose Schedule Unknown Completed [facility] Haemophilus influenzae type b vaccine, conjugate unspecified formulation Unknown Completed [facility] HPV Unknown Completed [facility] Meningococcal Polysaccharide (groups A, C, Y and W-135) conjugate vaccine (MCV4P) Unknown Completed [facility] MMR Unknown Completed [facility] MMR Unknown Completed [facility] IPV Unknown Completed [facility] IPV Unknown Completed [facility] Poliovirus, Live, Oral, Trivalent Unknown Completed [facility] Poliovirus, Live, Oral, Trivalent Unknown Completed [facility] HPV9 Unknown Completed [facility] TDAP Unknown Completed [facility] TDAP Unknown Completed [facility] DTaP, Unspecified Formulation Unknown Completed [facility] DTaP, Unspecified Formulation Unknown Completed [facility] DTaP, Unspecified Formulation Unknown Completed [facility] DTaP, Unspecified Formulation Unknown Completed [facility] HEPATITIS A Unknown Completed [facility] Hep B, Adol or Pedi Dosage Unknown Completed [facility] Hep B, Adol or Pedi Dosage Unknown Completed [facility] Hep B, Adol or Pedi Dosage Unknown Completed [facility] HIB 4 Dose Schedule Unknown Completed [facility] HIB 4 Dose Schedule Unknown Completed [facility] Haemophilus influenzae type b vaccine, conjugate unspecified formulation Unknown Completed [facility] HPV Unknown Completed [facility] Meningococcal Polysaccharide (groups A, C, Y and W-135) conjugate vaccine (MCV4P) Unknown Completed [facility] MMR Unknown Completed [facility] MMR Unknown Completed [facility] IPV Unknown Completed [facility] IPV Unknown Completed [facility] Poliovirus, Live, Oral, Trivalent Unknown Completed [facility] Poliovirus, Live, Oral, Trivalent Unknown Completed [facility] HPV9 Unknown Completed [facility] TDAP Unknown Completed [facility] TDAP Unknown Completed [facility] DTaP, Unspecified Formulation Unknown Completed [facility] DTaP, Unspecified Formulation Unknown Completed [facility] DTaP, Unspecified Formulation Unknown Completed [facility] DTaP, Unspecified Formulation Unknown Completed [facility] HEPATITIS A Unknown Completed [facility] Hep B, Adol or Pedi Dosage Unknown Completed [facility] Hep B, Adol or Pedi Dosage Unknown Completed [facility] Hep B, Adol or Pedi Dosage Unknown Completed [facility] HIB 4 Dose Schedule Unknown Completed [facility] HIB 4 Dose Schedule Unknown Completed [facility] Haemophilus influenzae type b vaccine, conjugate unspecified formulation Unknown Completed [facility] HPV Unknown Completed [facility] Meningococcal Polysaccharide (groups A, C, Y and W-135) conjugate vaccine (MCV4P) Unknown Completed [facility] MMR Unknown Completed [facility] MMR Unknown Completed [facility] IPV Unknown Completed [facility] IPV Unknown Completed [facility] Poliovirus, Live, Oral, Trivalent Unknown Completed [facility] Poliovirus, Live, Oral, Trivalent Unknown Completed [facility] HPV9 Unknown Completed [facility] TDAP Unknown Completed [facility] TDAP Unknown Completed [facility] DTaP, Unspecified Formulation Unknown Completed [facility] DTaP, Unspecified Formulation Unknown Completed [facility] DTaP, Unspecified Formulation Unknown Completed [facility] DTaP, Unspecified Formulation Unknown Completed [facility] HEPATITIS A Unknown Completed [facility] Hep B, Adol or Pedi Dosage Unknown Completed [facility] Hep B, Adol or Pedi Dosage Unknown Completed [facility] Hep B, Adol or Pedi Dosage Unknown Completed [facility] HIB 4 Dose Schedule Unknown Completed [facility] HIB 4 Dose Schedule Unknown Completed [facility] Haemophilus influenzae type b vaccine, conjugate unspecified formulation Unknown Completed [facility] HPV Unknown Completed [facility] Meningococcal Polysaccharide (groups A, C, Y and W-135) conjugate vaccine (MCV4P) Unknown Completed [facility] MMR Unknown Completed [facility] MMR Unknown Completed [facility] IPV Unknown Completed [facility] IPV Unknown Completed [facility] Poliovirus, Live, Oral, Trivalent Unknown Completed [facility] Poliovirus, Live, Oral, Trivalent Unknown Completed [facility] HPV9 Unknown Completed [facility] TDAP Unknown Completed [facility] TDAP Unknown Completed [facility] DTaP, Unspecified Formulation Unknown Completed [facility] DTaP, Unspecified Formulation Unknown Completed [facility] DTaP, Unspecified Formulation Unknown Completed [facility] DTaP, Unspecified Formulation Unknown Completed [facility] HEPATITIS A Unknown Completed [facility] Hep B, Adol or Pedi Dosage Unknown Completed [facility] Hep B, Adol or Pedi Dosage Unknown Completed [facility] Hep B, Adol or Pedi Dosage Unknown Completed [facility] HIB 4 Dose Schedule Unknown Completed [facility] HIB 4 Dose Schedule Unknown Completed [facility] Haemophilus influenzae type b vaccine, conjugate unspecified formulation Unknown Completed [facility] HPV Unknown Completed [facility] Meningococcal Polysaccharide (groups A, C, Y and W-135) conjugate vaccine (MCV4P) Unknown Completed [facility] MMR Unknown Completed [facility] MMR Unknown Completed [facility] IPV Unknown Completed [facility] IPV Unknown Completed [facility] Poliovirus, Live, Oral, Trivalent Unknown Completed [facility] Poliovirus, Live, Oral, Trivalent Unknown Completed [facility] HPV9 Unknown Completed [facility] TDAP Unknown Completed [facility] TDAP Unknown Completed [facility] DTaP, Unspecified Formulation Unknown Completed [facility] DTaP, Unspecified Formulation Unknown Completed [facility] DTaP, Unspecified Formulation Unknown Completed [facility] DTaP, Unspecified Formulation Unknown Completed [facility] HEPATITIS A Unknown Completed [facility] Hep B, Adol or Pedi Dosage Unknown Completed [facility] Hep B, Adol or Pedi Dosage Unknown Completed [facility] Hep B, Adol or Pedi Dosage Unknown Completed [facility] HIB 4 Dose Schedule Unknown Completed [facility] HIB 4 Dose Schedule Unknown Completed [facility] Haemophilus influenzae type b vaccine, conjugate unspecified formulation Unknown Completed [facility] HPV Unknown Completed [facility] Meningococcal Polysaccharide (groups A, C, Y and W-135) conjugate vaccine (MCV4P) Unknown Completed [facility] MMR Unknown Completed [facility] MMR Unknown Completed [facility] IPV Unknown Completed [facility] IPV Unknown Completed [facility] Poliovirus, Live, Oral, Trivalent Unknown Completed [facility] Poliovirus, Live, Oral, Trivalent Unknown Completed [facility] HPV9 Unknown Completed [facility] TDAP Unknown Completed [facility] TDAP Unknown Completed [facility] DTaP, Unspecified Formulation Unknown Completed [facility] DTaP, Unspecified Formulation Unknown Completed [facility] DTaP, Unspecified Formulation Unknown Completed [facility] DTaP, Unspecified Formulation Unknown Completed [facility] HEPATITIS A Unknown Completed [facility] Hep B, Adol or Pedi Dosage Unknown Completed [facility] Hep B, Adol or Pedi Dosage Unknown Completed [facility] Hep B, Adol or Pedi Dosage Unknown Completed [facility] HIB 4 Dose Schedule Unknown Completed [facility] HIB 4 Dose Schedule Unknown Completed [facility] Haemophilus influenzae type b vaccine, conjugate unspecified formulation Unknown Completed [facility] HPV Unknown Completed [facility] Meningococcal Polysaccharide (groups A, C, Y and W-135) conjugate vaccine (MCV4P) Unknown Completed [facility] MMR Unknown Completed [facility] MMR Unknown Completed [facility] IPV Unknown Completed [facility] IPV Unknown Completed [facility] Poliovirus, Live, Oral, Trivalent Unknown Completed [facility] Poliovirus, Live, Oral, Trivalent Unknown Completed [facility] HPV9 Unknown Completed [facility] TDAP Unknown Completed [facility] TDAP Unknown Completed [facility] DTaP, Unspecified Formulation Unknown Completed [facility] DTaP, Unspecified Formulation Unknown Completed [facility] DTaP, Unspecified Formulation Unknown Completed [facility] DTaP, Unspecified Formulation Unknown Completed [facility] HEPATITIS A Unknown Completed [facility] Hep B, Adol or Pedi Dosage Unknown Completed [facility] Hep B, Adol or Pedi Dosage Unknown Completed [facility] Hep B, Adol or Pedi Dosage Unknown Completed [facility] HIB 4 Dose Schedule Unknown Completed [facility] HIB 4 Dose Schedule Unknown Completed [facility] Haemophilus influenzae type b vaccine, conjugate unspecified formulation Unknown Completed [facility] HPV Unknown Completed [facility] Meningococcal Polysaccharide (groups A, C, Y and W-135) conjugate vaccine (MCV4P) Unknown Completed [facility] MMR Unknown Completed [facility] MMR Unknown Completed [facility] IPV Unknown Completed [facility] IPV Unknown Completed [facility] Poliovirus, Live, Oral, Trivalent Unknown Completed [facility] Poliovirus, Live, Oral, Trivalent Unknown Completed [facility] HPV9 Unknown Completed [facility] TDAP Unknown Completed [facility] TDAP Unknown Completed [facility] DTaP, Unspecified Formulation Unknown Completed [facility] DTaP, Unspecified Formulation Unknown Completed [facility] DTaP, Unspecified Formulation Unknown Completed [facility] DTaP, Unspecified Formulation Unknown Completed [facility] HEPATITIS A Unknown Completed [facility] Hep B, Adol or Pedi Dosage Unknown Completed [facility] Hep B, Adol or Pedi Dosage Unknown Completed [facility] Hep B, Adol or Pedi Dosage Unknown Completed [facility] HIB 4 Dose Schedule Unknown Completed [facility] HIB 4 Dose Schedule Unknown Completed [facility] Haemophilus influenzae type b vaccine, conjugate unspecified formulation Unknown Completed [facility] HPV Unknown Completed [facility] Meningococcal Polysaccharide (groups A, C, Y and W-135) conjugate vaccine (MCV4P) Unknown Completed [facility] MMR Unknown Completed [facility] MMR Unknown Completed [facility] IPV Unknown Completed [facility] IPV Unknown Completed [facility] Poliovirus, Live, Oral, Trivalent Unknown Completed [facility] Poliovirus, Live, Oral, Trivalent Unknown Completed [facility] HPV9 Unknown Completed [facility] TDAP Unknown Completed [facility] TDAP Unknown Completed [facility] DTaP, Unspecified Formulation Unknown Completed [facility] DTaP, Unspecified Formulation Unknown Completed [facility] DTaP, Unspecified Formulation Unknown Completed [facility] DTaP, Unspecified Formulation Unknown Completed [facility] HEPATITIS A Unknown Completed [facility] Hep B, Adol or Pedi Dosage Unknown Completed [facility] Hep B, Adol or Pedi Dosage Unknown Completed [facility] Hep B, Adol or Pedi Dosage Unknown Completed [facility] HIB 4 Dose Schedule Unknown Completed [facility] HIB 4 Dose Schedule Unknown Completed [facility] Haemophilus influenzae type b vaccine, conjugate unspecified formulation Unknown Completed [facility] HPV Unknown Completed [facility] Meningococcal Polysaccharide (groups A, C, Y and W-135) conjugate vaccine (MCV4P) Unknown Completed [facility] MMR Unknown Completed [facility] MMR Unknown Completed [facility] IPV Unknown Completed [facility] IPV Unknown Completed [facility] Poliovirus, Live, Oral, Trivalent Unknown Completed [facility] Poliovirus, Live, Oral, Trivalent Unknown Completed [facility] HPV9 Unknown Completed [facility] TDAP Unknown Completed [facility] TDAP Unknown Completed [facility] DTaP, Unspecified Formulation Unknown Completed [facility] DTaP, Unspecified Formulation Unknown Completed [facility] DTaP, Unspecified Formulation Unknown Completed [facility] DTaP, Unspecified Formulation Unknown Completed [facility] HEPATITIS A Unknown Completed [facility] Hep B, Adol or Pedi Dosage Unknown Completed [facility] Hep B, Adol or Pedi Dosage Unknown Completed [facility] Hep B, Adol or Pedi Dosage Unknown Completed [facility] HIB 4 Dose Schedule Unknown Completed [facility] HIB 4 Dose Schedule Unknown Completed [facility] Haemophilus influenzae type b vaccine, conjugate unspecified formulation Unknown Completed [facility] HPV Unknown Completed [facility] Meningococcal Polysaccharide (groups A, C, Y and W-135) conjugate vaccine (MCV4P) Unknown Completed [facility] MMR Unknown Completed [facility] MMR Unknown Completed [facility] IPV Unknown Completed [facility] IPV Unknown Completed [facility] Poliovirus, Live, Oral, Trivalent Unknown Completed [facility] Poliovirus, Live, Oral, Trivalent Unknown Completed [facility] HPV9 Unknown Completed [facility] TDAP Unknown Completed [facility] TDAP Unknown Completed [facility] DTaP, Unspecified Formulation Unknown Completed [facility] DTaP, Unspecified Formulation Unknown Completed [facility] DTaP, Unspecified Formulation Unknown Completed [facility] DTaP, Unspecified Formulation Unknown Completed [facility] HEPATITIS A Unknown Completed [facility] Hep B, Adol or Pedi Dosage Unknown Completed [facility] Hep B, Adol or Pedi Dosage Unknown Completed [facility] Hep B, Adol or Pedi Dosage Unknown Completed [facility] HIB 4 Dose Schedule Unknown Completed [facility] HIB 4 Dose Schedule Unknown Completed [facility] Haemophilus influenzae type b vaccine, conjugate unspecified formulation Unknown Completed [facility] HPV Unknown Completed [facility] Meningococcal Polysaccharide (groups A, C, Y and W-135) conjugate vaccine (MCV4P) Unknown Completed [facility] MMR Unknown Completed [facility] MMR Unknown Completed [facility] IPV Unknown Completed [facility] IPV Unknown Completed [facility] Poliovirus, Live, Oral, Trivalent Unknown Completed [facility] Poliovirus, Live, Oral, Trivalent Unknown Completed [facility] HPV9 Unknown Completed [facility] TDAP Unknown Completed [facility] TDAP Unknown Completed [facility] DTaP, Unspecified Formulation Unknown Completed [facility] DTaP, Unspecified Formulation Unknown Completed [facility] DTaP, Unspecified Formulation Unknown Completed [facility] DTaP, Unspecified Formulation Unknown Completed [facility] HEPATITIS A Unknown Completed [facility] Hep B, Adol or Pedi Dosage Unknown Completed [facility] Hep B, Adol or Pedi Dosage Unknown Completed [facility] Hep B, Adol or Pedi Dosage Unknown Completed [facility] HIB 4 Dose Schedule Unknown Completed [facility] HIB 4 Dose Schedule Unknown Completed [facility] Haemophilus influenzae type b vaccine, conjugate unspecified formulation Unknown Completed [facility] HPV Unknown Completed [facility] Meningococcal Polysaccharide (groups A, C, Y and W-135) conjugate vaccine (MCV4P) Unknown Completed [facility] MMR Unknown Completed [facility] MMR Unknown Completed [facility] IPV Unknown Completed [facility] IPV Unknown Completed [facility] Poliovirus, Live, Oral, Trivalent Unknown Completed [facility] Poliovirus, Live, Oral, Trivalent Unknown Completed [facility] HPV9 Unknown Completed [facility] TDAP Unknown Completed [facility] TDAP Unknown Completed [facility] DTaP, Unspecified Formulation Unknown Completed [facility] DTaP, Unspecified Formulation Unknown Completed [facility] DTaP, Unspecified Formulation Unknown Completed [facility] DTaP, Unspecified Formulation Unknown Completed [facility] HEPATITIS A Unknown Completed [facility] Hep B, Adol or Pedi Dosage Unknown Completed [facility] Hep B, Adol or Pedi Dosage Unknown Completed [facility] Hep B, Adol or Pedi Dosage Unknown Completed [facility] HIB 4 Dose Schedule Unknown Completed [facility] HIB 4 Dose Schedule Unknown Com[facility] [facility] Haemophilus influenzae type b vaccine, conjugate unspecified formulation Unknown Completed [facility] HPV Unknown Completed [facility] Meningococcal Polysaccharide (groups A, C, Y and W-135) conjugate vaccine (MCV4P) Unknown Completed [facility] MMR Unknown Completed [facility] MMR Unknown Completed [facility] IPV Unknown Completed [facility] IPV Unknown Completed [facility] Poliovirus, Live, Oral, Trivalent Unknown Completed [facility] Poliovirus, Live, Oral, Trivalent Unknown Completed [facility] HPV9 Unknown Completed [facility] TDAP Unknown Completed [facility] TDAP Unknown Completed [facility] DTaP, Unspecified Formulation Unknown Completed [facility] DTaP, Unspecified Formulation Unknown Completed [facility] DTaP, Unspecified Formulation Unknown Completed [facility] DTaP, Unspecified Formulation Unknown Completed [facility] HEPATITIS A Unknown Completed [facility] Hep B, Adol or Pedi Dosage Unknown Completed [facility] Hep B, Adol or Pedi Dosage Unknown Completed [facility] Hep B, Adol or Pedi Dosage Unknown Completed [facility] HIB 4 Dose Schedule Unknown Completed [facility] HIB 4 Dose Schedule Unknown Completed [facility] Haemophilus influenzae type b vaccine, conjugate unspecified formulation Unknown Completed [facility] HPV Unknown Completed [facility] Meningococcal Polysaccharide (groups A, C, Y and W-135) conjugate vaccine (MCV4P) Unknown Completed [facility] MMR Unknown Completed [facility] MMR Unknown Completed [facility] IPV Unknown Completed [facility] IPV Unknown Completed [facility] Poliovirus, Live, Oral, Trivalent Unknown Completed [facility] Poliovirus, Live, Oral, Trivalent Unknown Completed [facility] HPV9 Unknown Completed [facility] TDAP Unknown Completed [facility] TDAP Unknown Completed [facility] DTaP, Unspecified Formulation Unknown Completed [facility] DTaP, Unspecified Formulation Unknown Completed [facility] DTaP, Unspecified Formulation Unknown Completed [facility] DTaP, Unspecified Formulation Unknown Completed [facility] HEPATITIS A Unknown Completed [facility] Hep B, Adol or Pedi Dosage Unknown Completed [facility] Hep B, Adol or Pedi Dosage Unknown Completed [facility] Hep B, Adol or Pedi Dosage Unknown Completed [facility] HIB 4 Dose Schedule Unknown Completed [facility] HIB 4 Dose Schedule Unknown Completed [facility] Haemophilus influenzae type b vaccine, conjugate unspecified formulation Unknown Completed [facility] HPV Unknown Completed [facility] Meningococcal Polysaccharide (groups A, C, Y and W-135) conjugate vaccine (MCV4P) Unknown Completed [facility] MMR Unknown Completed [facility] MMR Unknown Completed [facility] IPV Unknown Completed [facility] IPV Unknown Completed [facility] Poliovirus, Live, Oral, Trivalent Unknown Completed [facility] Poliovirus, Live, Oral, Trivalent Unknown Completed [facility] HPV9 Unknown Completed [facility] TDAP Unknown Completed [facility] TDAP Unknown Completed [facility] DTaP, Unspecified Formulation Unknown Completed [facility] DTaP, Unspecified Formulation Unknown Completed [facility] DTaP, Unspecified Formulation Unknown Completed [facility] DTaP, Unspecified Formulation Unknown Completed [facility] HEPATITIS A Unknown Completed [facility] Hep B, Adol or Pedi Dosage Unknown Completed [facility] Hep B, Adol or Pedi Dosage Unknown Completed [facility] Hep B, Adol or Pedi Dosage Unknown Completed [facility] HIB 4 Dose Schedule Unknown Completed [facility] HIB 4 Dose Schedule Unknown Completed [facility] Haemophilus influenzae type b vaccine, conjugate unspecified formulation Unknown Completed [facility] HPV Unknown Completed [facility] Meningococcal Polysaccharide (groups A, C, Y and W-135) conjugate vaccine (MCV4P) Unknown Completed [facility] MMR Unknown Completed [facility] MMR Unknown Completed [facility] IPV Unknown Completed [facility] IPV Unknown Completed [facility] Poliovirus, Live, Oral, Trivalent Unknown Completed [facility] Poliovirus, Live, Oral, Trivalent Unknown Completed [facility] HPV9 Unknown Completed [facility] TDAP Unknown Completed [facility] TDAP Unknown Completed [facility] DTaP, Unspecified Formulation Unknown Completed [facility] DTaP, Unspecified Formulation Unknown Completed [facility] DTaP, Unspecified Formulation Unknown Completed [facility] DTaP, Unspecified Formulation Unknown Completed [facility] HEPATITIS A Unknown Completed [facility] Hep B, Adol or Pedi Dosage Unknown Completed [facility] Hep B, Adol or Pedi Dosage Unknown Completed [facility] Hep B, Adol or Pedi Dosage Unknown Completed [facility] HIB 4 Dose Schedule Unknown Completed [facility] HIB 4 Dose Schedule Unknown Completed [facility] Haemophilus influenzae type b vaccine, conjugate unspecified formulation Unknown Completed [facility] HPV Unknown Completed [facility] Meningococcal Polysaccharide (groups A, C, Y and W-135) conjugate vaccine (MCV4P) Unknown Completed [facility] MMR Unknown Completed [facility] MMR Unknown Completed [facility] IPV Unknown Completed [facility] IPV Unknown Completed [facility] Poliovirus, Live, Oral, Trivalent Unknown Completed [facility] Poliovirus, Live, Oral, Trivalent Unknown Completed [facility] HPV9 Unknown Completed [facility] TDAP Unknown Completed [facility] TDAP Unknown Completed [facility] DTaP, Unspecified Formulation Unknown Completed [facility] DTaP, Unspecified Formulation Unknown Completed [facility] DTaP, Unspecified Formulation Unknown Completed [facility] DTaP, Unspecified Formulation Unknown Completed [facility] HEPATITIS A Unknown Completed [facility] Hep B, Adol or Pedi Dosage Unknown Completed [facility] Hep B, Adol or Pedi Dosage Unknown Completed [facility] Hep B, Adol or Pedi Dosage Unknown Completed [facility] HIB 4 Dose Schedule Unknown Completed [facility] HIB 4 Dose Schedule Unknown Completed [facility] Haemophilus influenzae type b vaccine, conjugate unspecified formulation Unknown Completed [facility] HPV Unknown Completed [facility] Meningococcal Polysaccharide (groups A, C, Y and W-135) conjugate vaccine (MCV4P) Unknown Completed [facility] MMR Unknown Completed [facility] MMR Unknown Completed [facility] IPV Unknown Completed [facility] IPV Unknown Completed [facility] Poliovirus, Live, Oral, Trivalent Unknown Completed [facility] Poliovirus, Live, Oral, Trivalent Unknown Completed [facility] HPV9 Unknown Completed [facility] TDAP Unknown Completed [facility] TDAP Unknown Completed [facility] DTaP, Unspecified Formulation Unknown Completed [facility] DTaP, Unspecified Formulation Unknown Completed [facility] DTaP, Unspecified Formulation Unknown Completed [facility] DTaP, Unspecified Formulation Unknown Completed [facility] HEPATITIS A Unknown Completed [facility] Hep B, Adol or Pedi Dosage Unknown Completed [facility] Hep B, Adol or Pedi Dosage Unknown Completed [facility] Hep B, Adol or Pedi Dosage Unknown Completed [facility] HIB 4 Dose Schedule Unknown Completed [facility] HIB 4 Dose Schedule Unknown Completed [facility] Haemophilus influenzae type b vaccine, conjugate unspecified formulation Unknown Completed [facility] HPV Unknown Completed [facility] Meningococcal Polysaccharide (groups A, C, Y and W-135) conjugate vaccine (MCV4P) Unknown Completed [facility] MMR Unknown Completed [facility] MMR Unknown Completed [facility] IPV Unknown Completed [facility] IPV Unknown Completed [facility] Poliovirus, Live, Oral, Trivalent Unknown Completed [facility] Poliovirus, Live, Oral, Trivalent Unknown Completed [facility] HPV9 Unknown Completed [facility] TDAP Unknown Completed [facility] TDAP Unknown Completed [facility] DTaP, Unspecified Formulation Unknown Completed [facility] DTaP, Unspecified Formulation Unknown Completed [facility] DTaP, Unspecified Formulation Unknown Completed [facility] DTaP, Unspecified Formulation Unknown Completed [facility] HEPATITIS A Unknown Completed [facility] Hep B, Adol or Pedi Dosage Unknown Completed [facility] Hep B, Adol or Pedi Dosage Unknown Completed [facility] Hep B, Adol or Pedi Dosage Unknown Completed [facility] HIB 4 Dose Schedule Unknown Completed [facility] HIB 4 Dose Schedule Unknown Completed [facility] Haemophilus influenzae type b vaccine, conjugate unspecified formulation Unknown Completed [facility] HPV Unknown Completed [facility] Meningococcal Polysaccharide (groups A, C, Y and W-135) conjugate vaccine (MCV4P) Unknown Completed [facility] MMR Unknown Completed [facility] MMR Unknown Completed [facility] IPV Unknown Completed [facility] IPV Unknown Completed [facility] Poliovirus, Live, Oral, Trivalent Unknown Completed [facility] Poliovirus, Live, Oral, Trivalent Unknown Completed [facility] HPV9 Unknown Completed [facility] TDAP Unknown Completed [facility] TDAP Unknown Completed [facility] DTaP, Unspecified Formulation Unknown Completed [facility] DTaP, Unspecified Formulation Unknown Completed [facility] DTaP, Unspecified Formulation Unknown Completed [facility] DTaP, Unspecified Formulation Unknown Completed [facility] HEPATITIS A Unknown Completed [facility] Hep B, Adol or Pedi Dosage Unknown Completed [facility] Hep B, Adol or Pedi Dosage Unknown Completed [facility] Hep B, Adol or Pedi Dosage Unknown Completed [facility] HIB 4 Dose Schedule Unknown Completed [facility] HIB 4 Dose Schedule Unknown Completed [facility] Haemophilus influenzae type b vaccine, conjugate unspecified formulation Unknown Completed [facility] HPV Unknown Completed [facility] Meningococcal Polysaccharide (groups A, C, Y and W-135) conjugate vaccine (MCV4P) Unknown Completed [facility] MMR Unknown Completed [facility] MMR Unknown Completed [facility] IPV Unknown Completed [facility] IPV Unknown Completed [facility] Poliovirus, Live, Oral, Trivalent Unknown Completed [facility] Poliovirus, Live, Oral, Trivalent Unknown Completed [facility] HPV9 Unknown Completed [facility] TDAP Unknown Completed [facility] TDAP Unknown Completed [facility] DTaP, Unspecified Formulation Unknown Completed [facility] DTaP, Unspecified Formulation Unknown Completed [facility] DTaP, Unspecified Formulation Unknown Completed [facility] DTaP, Unspecified Formulation Unknown Completed [facility] HEPATITIS A Unknown [facility] B, Adol or Pedi Dosage Unknown Completed [facility] Hep B, Adol or Pedi Dosage Unknown Completed [facility] Hep B, Adol or Pedi Dosage Unknown Completed [facility] HIB 4 Dose Schedule Unknown Completed [facility] HIB 4 Dose Schedule Unknown Completed [facility] Haemophilus influenzae type b vaccine, conjugate unspecified formulation Unknown Completed [facility] HPV Unknown Completed [facility] Meningococcal Polysaccharide (groups A, C, Y and W-135) conjugate vaccine (MCV4P) Unknown Completed [facility] MMR Unknown Completed [facility] MMR Unknown Completed [facility] IPV Unknown Completed [facility] IPV Unknown Completed [facility] Poliovirus, Live, Oral, Trivalent Unknown Completed [facility] Poliovirus, Live, Oral, Trivalent Unknown Completed [facility] HPV9 Unknown Completed [facility] TDAP Unknown Completed [facility] TDAP Unknown Completed [facility] DTaP, Unspecified Formulation Unknown Completed [facility] DTaP, Unspecified Formulation Unknown Completed [facility] DTaP, Unspecified Formulation Unknown Completed [facility] DTaP, Unspecified Formulation Unknown Completed [facility] HEPATITIS A Unknown Completed [facility] Hep B, Adol or Pedi Dosage Unknown Completed [facility] Hep B, Adol or Pedi Dosage Unknown Completed [facility] Hep B, Adol or Pedi Dosage Unknown Completed [facility] HIB 4 Dose Schedule Unknown Completed [facility] HIB 4 Dose Schedule Unknown Completed [facility] Haemophilus influenzae type b vaccine, conjugate unspecified formulation Unknown Completed [facility] HPV Unknown Completed [facility] Meningococcal Polysaccharide (groups A, C, Y and W-135) conjugate vaccine (MCV4P) Unknown Completed [facility] MMR Unknown Completed [facility] MMR Unknown Completed [facility] IPV Unknown Completed [facility] IPV Unknown Completed [facility] Poliovirus, Live, Oral, Trivalent Unknown Completed [facility] Poliovirus, Live, Oral, Trivalent Unknown Completed [facility] HPV9 Unknown Completed [facility] TDAP Unknown Completed [facility] TDAP Unknown Completed [facility] DTaP, Unspecified Formulation Unknown Completed [facility] DTaP, Unspecified Formulation Unknown Completed [facility] DTaP, Unspecified Formulation Unknown Completed [facility] DTaP, Unspecified Formulation Unknown Completed [facility] HEPATITIS A Unknown Completed [facility] Hep B, Adol or Pedi Dosage Unknown Completed [facility] Hep B, Adol or Pedi Dosage Unknown Completed [facility] Hep B, Adol or Pedi Dosage Unknown Completed [facility] HIB 4 Dose Schedule Unknown Completed [facility] HIB 4 Dose Schedule Unknown Completed [facility] Haemophilus influenzae type b vaccine, conjugate unspecified formulation Unknown Completed [facility] HPV Unknown Completed [facility] Meningococcal Polysaccharide (groups A, C, Y and W-135) conjugate vaccine (MCV4P) Unknown Completed [facility] MMR Unknown Completed [facility] MMR Unknown Completed [facility] IPV Unknown Completed [facility] IPV Unknown Completed [facility] Poliovirus, Live, Oral, Trivalent Unknown Completed [facility] Poliovirus, Live, Oral, Trivalent Unknown Completed [facility] HPV9 Unknown Completed [facility] TDAP Unknown Completed [facility] TDAP Unknown Completed [facility] DTaP, Unspecified Formulation Unknown Completed [facility] DTaP, Unspecified Formulation Unknown Completed [facility] DTaP, Unspecified Formulation Unknown Completed [facility] DTaP, Unspecified Formulation Unknown Completed [facility] HEPATITIS A Unknown Completed [facility] Hep B, Adol or Pedi Dosage Unknown Completed [facility] Hep B, Adol or Pedi Dosage Unknown Completed [facility] Hep B, Adol or Pedi Dosage Unknown Completed [facility] HIB 4 Dose Schedule Unknown Completed [facility] HIB 4 Dose Schedule Unknown Completed [facility] Haemophilus influenzae type b vaccine, conjugate unspecified formulation Unknown Completed [facility] HPV Unknown Completed [facility] Meningococcal Polysaccharide (groups A, C, Y and W-135) conjugate vaccine (MCV4P) Unknown Completed [facility] MMR Unknown Completed [facility] MMR Unknown Completed [facility] IPV Unknown Completed [facility] IPV Unknown Completed [facility] Poliovirus, Live, Oral, Trivalent Unknown Completed [facility] Poliovirus, Live, Oral, Trivalent Unknown Completed [facility] HPV9 Unknown Completed [facility] TDAP Unknown Completed [facility] TDAP Unknown Completed [facility] DTaP, Unspecified Formulation Unknown Completed [facility] DTaP, Unspecified Formulation Unknown Completed [facility] DTaP, Unspecified Formulation Unknown Completed [facility] DTaP, Unspecified Formulation Unknown Completed [facility] HEPATITIS A Unknown Completed [facility] Hep B, Adol or Pedi Dosage Unknown Completed [facility] Hep B, Adol or Pedi Dosage Unknown Completed [facility] Hep B, Adol or Pedi Dosage Unknown Completed [facility] HIB 4 Dose Schedule Unknown Completed [facility] HIB 4 Dose Schedule Unknown Completed [facility] Haemophilus influenzae type b vaccine, conjugate unspecified formulation Unknown Completed [facility] HPV Unknown Completed [facility] Meningococcal Polysaccharide (groups A, C, Y and W-135) conjugate vaccine (MCV4P) Unknown Completed [facility] MMR Unknown Completed [facility] MMR Unknown Completed [facility] IPV Unknown Completed [facility] IPV Unknown Completed [facility] Poliovirus, Live, Oral, Trivalent Unknown Completed [facility] Poliovirus, Live, Oral, Trivalent Unknown Completed [facility] HPV9 Unknown Completed [facility] TDAP Unknown Completed [facility] TDAP Unknown Completed [facility] DTaP, Unspecified Formulation Unknown Completed [facility] DTaP, Unspecified Formulation Unknown Completed [facility] DTaP, Unspecified Formulation Unknown Completed [facility] DTaP, Unspecified Formulation Unknown Completed [facility] HEPATITIS A Unknown Completed [facility] Hep B, Adol or Pedi Dosage Unknown Completed [facility] Hep B, Adol or Pedi Dosage Unknown Completed [facility] Hep B, Adol or Pedi Dosage Unknown Completed [facility] HIB 4 Dose Schedule Unknown Completed [facility] HIB 4 Dose Schedule Unknown Completed [facility] Haemophilus influenzae type b vaccine, conjugate unspecified formulation Unknown Completed [facility] HPV Unknown Completed [facility] Meningococcal Polysaccharide (groups A, C, Y and W-135) conjugate vaccine (MCV4P) Unknown Completed [facility] MMR Unknown Completed [facility] MMR Unknown Completed [facility] IPV Unknown Completed [facility] IPV Unknown Completed [facility] Poliovirus, Live, Oral, Trivalent Unknown Completed [facility] Poliovirus, Live, Oral, Trivalent Unknown Completed [facility] HPV9 Unknown Completed [facility] TDAP Unknown Completed [facility] TDAP Unknown Completed [facility] DTaP, Unspecified Formulation Unknown Completed [facility] DTaP, Unspecified Formulation Unknown Completed [facility] DTaP, Unspecified Formulation Unknown Completed [facility] DTaP, Unspecified Formulation Unknown Completed [facility] HEPATITIS A Unknown Completed [facility] Hep B, Adol or Pedi Dosage Unknown Completed [facility] Hep B, Adol or Pedi Dosage Unknown Completed [facility] Hep B, Adol or Pedi Dosage Unknown Completed [facility] HIB 4 Dose Schedule Unknown Completed [facility] HIB 4 Dose Schedule Unknown Completed [facility] Haemophilus influenzae type b vaccine, conjugate unspecified formulation Unknown Completed [facility] HPV Unknown Completed [facility] Meningococcal Polysaccharide (groups A, C, Y and W-135) conjugate vaccine (MCV4P) Unknown Completed [facility] MMR Unknown Completed [facility] MMR Unknown Completed [facility] IPV Unknown Completed [facility] IPV Unknown Completed [facility] Poliovirus, Live, Oral, Trivalent Unknown Completed [facility] Poliovirus, Live, Oral, Trivalent Unknown Completed [facility] HPV9 Unknown Completed [facility] TDAP Unknown Completed [facility] TDAP Unknown Completed [facility] DTaP, Unspecified Formulation Unknown Completed [facility] DTaP, Unspecified Formulation Unknown Completed [facility] DTaP, Unspecified Formulation Unknown Completed [facility] DTaP, Unspecified Formulation Unknown Completed [facility] HEPATITIS A Unknown Completed [facility] Hep B, Adol or Pedi Dosage Unknown Completed [facility] Hep B, Adol or Pedi Dosage Unknown Completed [facility] Hep B, Adol or Pedi Dosage Unknown Completed [facility] HIB 4 Dose Schedule Unknown Completed [facility] HIB 4 Dose Schedule Unknown Completed [facility] Haemophilus influenzae type b vaccine, conjugate unspecified formulation Unknown Completed [facility] HPV Unknown Completed [facility] Meningococcal Polysaccharide (groups A, C, Y and W-135) conjugate vaccine (MCV4P) Unknown Completed [facility] MMR Unknown Completed [facility] MMR Unknown Completed [facility] IPV Unknown Completed [facility] IPV Unknown Completed [facility] Poliovirus, Live, Oral, Trivalent Unknown Completed [facility] Poliovirus, Live, Oral, Trivalent Unknown Completed [facility] HPV9 Unknown Completed [facility] TDAP Unknown Completed [facility] TDAP Unknown Completed [facility] DTaP, Unspecified Formulation Unknown Completed [facility] DTaP, Unspecified Formulation Unknown Completed [facility] DTaP, Unspecified Formulation Unknown Completed [facility] DTaP, Unspecified Formulation Unknown Completed [facility] HEPATITIS A Unknown Completed [facility] Hep B, Adol or Pedi Dosage Unknown Completed [facility] Hep B, Adol or Pedi Dosage Unknown Completed [facility] Hep B, Adol or Pedi Dosage Unknown Completed [facility] HIB 4 Dose Schedule Unknown Completed [facility] HIB 4 Dose Schedule Unknown Completed [facility] Haemophilus influenzae type b vaccine, conjugate unspecified formulation Unknown Completed [facility] HPV Unknown Completed [facility] Meningococcal Polysaccharide (groups A, C, Y and W-135) conjugate vaccine (MCV4P) Unknown Completed [facility] MMR Unknown Completed [facility] MMR Unknown Completed [facility] IPV Unknown Completed [facility] IPV Unknown Completed [facility] Poliovirus, Live, Oral, Trivalent Unknown Completed [facility] Poliovirus, Live, Oral, Trivalent Unknown Completed [facility] HPV9 Unknown Completed [facility] TDAP Unknown Completed [facility] TDAP Unknown Completed [facility] DTaP, Unspecified Formulation Unknown Completed [facility] DTaP, Unspecified Formulation Unknown Completed [facility] DTaP, Unspecified Formulation Unknown Completed [facility] DTaP, Unspecified Formulation Unknown Completed [facility] HEPATITIS A Unknown Completed [facility] Hep B, Adol or Pedi Dosage Unknown Completed [facility] Hep B, Adol or Pedi Dosage Unknown Completed [facility] Hep B, Adol or Pedi Dosage Unknown Completed [facility] HIB 4 Dose Schedule Unknown Completed [facility] HIB 4 Dose Schedule Unknown Completed [facility] Haemophilus influenzae type b vaccine, conjugate unspecified formulation Unknown Completed [facility] HPV Unknown Completed [facility] Meningococcal Polysaccharide (groups A, C, Y and W-135) conjugate vaccine (MCV4P) Unknown Completed [facility] MMR Unknown Completed [facility] MMR Unknown Completed [facility] IPV Unknown Completed [facility] IPV Unknown Completed [facility] Poliovirus, Live, Oral, Trivalent Unknown Completed [facility] Poliovirus, Live, Oral, Trivalent Unknown Completed [facility] HPV9 Unknown Completed [facility] TDAP Unknown Completed [facility] TDAP Unknown Completed [facility] DTaP, Unspecified Formulation Unknown Completed [facility] DTaP, Unspecified Formulation Unknown Completed [facility] DTaP, Unspecified Formulation Unknown Completed [facility] DTaP, Unspecified Formulation Unknown Completed [facility] HEPATITIS A Unknown Completed [facility] Hep B, Adol or Pedi Dosage Unknown Completed [facility] Hep B, Adol or Pedi Dosage Unknown Completed [facility] Hep B, Adol or Pedi Dosage Unknown Completed [facility] HIB 4 Dose Schedule Unknown Completed [facility] HIB 4 Dose Schedule Unknown Completed [facility] Haemophilus influenzae type b vaccine, conjugate unspecified formulation Unknown Completed [facility] HPV Unknown Completed [facility] Meningococcal Polysaccharide (groups A, C, Y and W-135) conjugate vaccine (MCV4P) Unknown Completed [facility] MMR Unknown Completed [facility] MMR Unknown Completed [facility] IPV Unknown Completed [facility] IPV Unknown Completed [facility] Poliovirus, Live, Oral, Trivalent Unknown Completed [facility] Poliovirus, Live, Oral, Trivalent Unknown Completed [facility] HPV9 Unknown Completed [facility] TDAP Unknown Completed [facility] TDAP Unknown Completed [facility] DTaP, Unspecified Formulation Unknown Completed [facility] DTaP, Unspecified Formulation Unknown Completed [facility] DTaP, Unspecified Formulation Unknown Completed [facility] DTaP, Unspecified Formulation Unknown Completed [facility] HEPATITIS A Unknown Completed [facility] Hep B, Adol or Pedi Dosage Unknown Completed [facility] Hep B, Adol or Pedi Dosage Unknown Completed [facility] Hep B, Adol or Pedi Dosage Unknown Completed [facility] HIB 4 Dose Schedule Unknown Completed [facility] HIB 4 Dose Schedule Unknown Completed [facility] Haemophilus influenzae type b vaccine, conjugate unspecified formulation Unknown Completed [facility] HPV Unknown Completed [facility] Meningococcal Polysaccharide (groups A, C, Y and W-135) conjugate vaccine (MCV4P) Unknown Completed [facility] MMR Unknown Completed [facility] MMR Unknown Completed [facility] IPV Unknown Completed [facility] IPV Unknown Completed [facility] Poliovirus, Live, Oral, Trivalent Unknown Completed [facility] Poliovirus, Live, Oral, Trivalent Unknown Completed [facility] HPV9 Unknown Completed [facility] TDAP Unknown Completed [facility] TDAP Unknown Completed [facility] DTaP, Unspecified Formulation Unknown Completed [facility] DTaP, Unspecified Formulation Unknown Completed [facility] DTaP, Unspecified Formulation Unknown Completed [facility] DTaP, Unspecified Formulation Unknown Completed [facility] HEPATITIS A Unknown Completed [facility] Hep B, Adol or Pedi Dosage Unknown Completed [facility] Hep B, Adol or Pedi Dosage Unknown Completed [facility] Hep B, Adol or Pedi Dosage Unknown Completed [facility] HIB 4 Dose Schedule Unknown Completed [facility] HIB 4 Dose Schedule Unknown Completed [facility] Haemophilus influenzae type b vaccine, conjugate unspecified formulation Unknown Completed [facility] HPV Unknown Completed [facility] Meningococcal Polysaccharide (groups A, C, Y and W-135) conjugate vaccine (MCV4P) Unknown Completed [facility] MMR Unknown Completed [facility] MMR Unknown Completed [facility] IPV Unknown Completed [facility] IPV Unknown Completed [facility] Poliovirus, Live, Oral, Trivalent Unknown Completed [facility] Poliovirus, Live, Oral, Trivalent Unknown Completed [facility] HPV9 Unknown Completed [facility] TDAP Unknown Completed [facility] TDAP Unknown Completed [facility] TDAP Unknown Completed [facility] TDAP Unknown Completed [facility] TDAP Unknown Completed [facility] TDAP Unknown Completed [facility] TDAP Unknown Completed [facility] DTaP, Unspecified Formulation Unknown Completed [facility] DTaP, Unspecified Formulation Unknown Completed [facility] DTaP, Unspecified Formulation Unknown Completed [facility] DTaP, Unspecified Formulation Unknown Completed [facility] HEPATITIS A Unknown Completed [facility] Hep B, Adol or Pedi Dosage Unknown Completed [facility] Hep B, Adol or Pedi Dosage Unknown Completed [facility] Hep B, Adol or Pedi Dosage Unknown Completed [facility] HIB 4 Dose Schedule Unknown Completed [facility] HIB 4 Dose Schedule Unknown Completed [facility] Haemophilus influenzae type b vaccine, conjugate unspecified formulation Unknown Completed [facility] HPV Unknown Completed [facility] Meningococcal Polysaccharide (groups A, C, Y and W-135) conjugate vaccine (MCV4P) Unknown Completed [facility] MMR Unknown Completed [facility] MMR Unknown Completed [facility] IPV Unknown Completed [facility] IPV Unknown Completed [facility] Poliovirus, Live, Oral, Trivalent Unknown Completed [facility] Poliovirus, Live, Oral, Trivalent Unknown Completed [facility] HPV9 Unknown Completed [facility] TDAP Unknown Completed [facility] TDAP Unknown Completed [facility] DTaP, Unspecified Formulation Unknown Completed [facility] DTaP, Unspecified Formulation Unknown Completed [facility] DTaP, Unspecified Formulation Unknown Completed [facility] DTaP, Unspecified Formulation Unknown Completed [facility] HEPATITIS A Unknown Completed [facility] Hep B, Adol or Pedi Dosage Unknown Completed [facility] Hep B, Adol or Pedi Dosage Unknown Completed [facility] Hep B, Adol or Pedi Dosage Unknown Completed [facility] HIB 4 Dose Schedule Unknown Completed [facility] HIB 4 Dose Schedule Unknown Completed [facility] Haemophilus influenzae type b vaccine, conjugate unspecified formulation Unknown Completed [facility] HPV Unknown Completed [facility] Meningococcal Polysaccharide (groups A, C, Y and W-135) conjugate vaccine (MCV4P) Unknown Completed [facility] MMR Unknown Completed [facility] MMR Unknown Completed [facility] IPV Unknown Completed [facility] IPV Unknown Completed [facility] Poliovirus, Live, Oral, Trivalent Unknown Completed [facility] Poliovirus, Live, Oral, Trivalent Unknown Completed [facility] HPV9 Unknown Completed [facility] TDAP Unknown Completed [facility] TDAP Unknown Completed [facility] DTaP, Unspecified Formulation Unknown Completed [facility] DTaP, Unspecified Formulation Unknown Completed [facility] DTaP, Unspecified Formulation Unknown Completed [facility] DTaP, Unspecified Formulation Unknown Completed [facility] HEPATITIS A Unknown Completed [facility] Hep B, Adol or Pedi Dosage Unknown Completed [facility] Hep B, Adol or Pedi Dosage Unknown Completed [facility] Hep B, Adol or Pedi Dosage Unknown Completed [facility] HIB 4 Dose Schedule Unknown Completed [facility] HIB 4 Dose Schedule Unknown Completed [facility] Haemophilus influenzae type b vaccine, conjugate unspecified formulation Unknown Completed [facility] HPV Unknown Completed [facility] Meningococcal Polysaccharide (groups A, C, Y and W-135) conjugate vaccine (MCV4P) Unknown Completed [facility] MMR Unknown Completed [facility] MMR Unknown Completed [facility] IPV Unknown Completed [facility] IPV Unknown Completed [facility] Poliovirus, Live, Oral, Trivalent Unknown Completed [facility] Poliovirus, Live, Oral, Trivalent Unknown Completed [facility] HPV9 Unknown Completed [facility] TDAP Unknown Completed [facility] TDAP Unknown Completed [facility] DTaP, Unspecified Formulation Unknown Completed [facility] DTaP, Unspecified Formulation Unknown Completed [facility] DTaP, Unspecified Formulation Unknown Completed [facility] DTaP, Unspecified Formulation Unknown Completed [facility] HEPATITIS A Unknown Completed [facility] Hep B, Adol or Pedi Dosage Unknown Completed [facility] Hep B, Adol or Pedi Dosage Unknown Completed [facility] Hep B, Adol or Pedi Dosage Unknown Completed [facility] HIB 4 Dose Schedule Unknown Completed [facility] HIB 4 Dose Schedule Unknown Completed [facility] Haemophilus influenzae type b vaccine, conjugate unspecified formulation Unknown Completed [facility] HPV Unknown Completed [facility] Meningococcal Polysaccharide (groups A, C, Y and W-135) conjugate vaccine (MCV4P) Unknown Completed [facility] MMR Unknown Completed [facility] MMR Unknown Completed [facility] IPV Unknown Completed [facility] IPV Unknown Completed [facility] Poliovirus, Live, Oral, Trivalent Unknown Completed [facility] Poliovirus, Live, Oral, Trivalent Unknown Completed [facility] HPV9 Unknown Completed [facility] TDAP Unknown Completed [facility] TDAP Unknown Completed [facility] DTaP, Unspecified Formulation Unknown Completed [facility] DTaP, Unspecified Formulation Unknown Completed [facility] DTaP, Unspecified Formulation Unknown Completed [facility] DTaP, Unspecified Formulation Unknown Completed [facility] HEPATITIS A Unknown Completed [facility] Hep B, Adol or Pedi Dosage Unknown Completed [facility] Hep B, Adol or Pedi Dosage Unknown Completed [facility] Hep B, Adol or Pedi Dosage Unknown Completed [facility] HIB 4 Dose Schedule Unknown Completed [facility] HIB 4 Dose Schedule Unknown Completed [facility] Haemophilus influenzae type b vaccine, conjugate unspecified formulation Unknown Completed [facility] HPV Unknown Completed [facility] Meningococcal Polysaccharide (groups A, C, Y and W-135) conjugate vaccine (MCV4P) Unknown Completed [facility] MMR Unknown Completed [facility] MMR Unknown Completed [facility] IPV Unknown Completed [facility] IPV Unknown Completed [facility] Poliovirus, Live, Oral, Trivalent Unknown Completed [facility] Poliovirus, Live, Oral, Trivalent Unknown Completed [facility] HPV9 Unknown Completed [facility] TDAP Unknown Completed [facility] TDAP Unknown Completed [facility] DTaP, Unspecified Formulation Unknown Completed [facility] DTaP, Unspecified Formulation Unknown Completed [facility] DTaP, Unspecified Formulation Unknown Completed [facility] DTaP, Unspecified Formulation Unknown Completed [facility] HEPATITIS A Unknown Completed [facility] Hep B, Adol or Pedi Dosage Unknown Completed [facility] Hep B, Adol or Pedi Dosage Unknown Completed [facility] Hep B, Adol or Pedi Dosage Unknown Completed [facility] HIB 4 Dose Schedule Unknown Completed [facility] HIB 4 Dose Schedule Unknown Completed [facility] Haemophilus influenzae type b vaccine, conjugate unspecified formulation Unknown Completed [facility] HPV Unknown Completed [facility] Meningococcal Polysaccharide (groups A, C, Y and W-135) conjugate vaccine (MCV4P) Unknown Completed [facility] MMR Unknown Completed [facility] MMR Unknown Completed [facility] IPV Unknown Completed [facility] IPV Unknown Completed [facility] Poliovirus, Live, Oral, Trivalent Unknown Completed [facility] Poliovirus, Live, Oral, Trivalent Unknown Completed [facility] HPV9 Unknown Completed [facility] TDAP Unknown Completed [facility] TDAP Unknown Completed [facility] DTaP, Unspecified Formulation Unknown Completed [facility] DTaP, Unspecified Formulation Unknown Completed [facility] DTaP, Unspecified Formulation Unknown Completed [facility] DTaP, Unspecified Formulation Unknown Completed [facility] HEPATITIS A Unknown Completed [facility] Hep B, Adol or Pedi Dosage Unknown Completed [facility] Hep B, Adol or Pedi Dosage Unknown Completed [facility] Hep B, Adol or Pedi Dosage Unknown Completed [facility] HIB 4 Dose Schedule Unknown Completed [facility] HIB 4 Dose Schedule Unknown Completed [facility] Haemophilus influenzae type b vaccine, conjugate unspecified formulation Unknown Completed [facility] HPV Unknown Completed [facility] Meningococcal Polysaccharide (groups A, C, Y and W-135) conjugate vaccine (MCV4P) Unknown Completed [facility] MMR Unknown Completed [facility] MMR Unknown Completed [facility] IPV Unknown Completed [facility] IPV Unknown Completed [facility] Poliovirus, Live, Oral, Trivalent Unknown Completed [facility] Poliovirus, Live, Oral, Trivalent Unknown Completed [facility] HPV9 Unknown Completed [facility] TDAP Unknown Completed [facility] TDAP Unknown Completed [facility] DTaP, Unspecified Formulation Unknown Completed [facility] DTaP, Unspecified Formulation Unknown Completed [facility] DTaP, Unspecified Formulation Unknown Completed [facility] DTaP, Unspecified Formulation Unknown Completed [facility] HEPATITIS A Unknown Completed [facility] Hep B, Adol or Pedi Dosage Unknown Completed [facility] Hep B, Adol or Pedi Dosage Unknown Completed [facility] Hep B, Adol or Pedi Dosage Unknown Completed [facility] HIB 4 Dose Schedule Unknown Completed [facility] HIB 4 Dose Schedule Unknown Completed [facility] Haemophilus influenzae type b vaccine, conjugate unspecified formulation Unknown Completed [facility] HPV Unknown Completed [facility] Meningococcal Polysaccharide (groups A, C, Y and W-135) conjugate vaccine (MCV4P) Unknown Completed [facility] MMR Unknown Completed [facility] MMR Unknown Completed [facility] IPV Unknown Completed [facility] IPV Unknown Com[facility] [facility] Poliovirus, Live, Oral, Trivalent Unknown Completed [facility] Poliovirus, Live, Oral, Trivalent Unknown Completed [facility] HPV9 Unknown Completed [facility] TDAP Unknown Completed [facility] TDAP Unknown Completed [facility] DTaP, Unspecified Formulation Unknown Completed [facility] DTaP, Unspecified Formulation Unknown Completed [facility] DTaP, Unspecified Formulation Unknown Completed [facility] DTaP, Unspecified Formulation Unknown Completed [facility] HEPATITIS A Unknown Completed [facility] Hep B, Adol or Pedi Dosage Unknown Completed [facility] Hep B, Adol or Pedi Dosage Unknown Completed [facility] Hep B, Adol or Pedi Dosage Unknown Completed [facility] HIB 4 Dose Schedule Unknown Completed [facility] HIB 4 Dose Schedule Unknown Completed [facility] Haemophilus influenzae type b vaccine, conjugate unspecified formulation Unknown Completed [facility] HPV Unknown Completed [facility] Meningococcal Polysaccharide (groups A, C, Y and W-135) conjugate vaccine (MCV4P) Unknown Completed [facility] MMR Unknown Completed [facility] MMR Unknown Completed [facility] IPV Unknown Completed [facility] IPV Unknown Completed [facility] Poliovirus, Live, Oral, Trivalent Unknown Completed [facility] Poliovirus, Live, Oral, Trivalent Unknown Completed [facility] HPV9 Unknown Completed [facility] TDAP Unknown Completed [facility] TDAP Unknown Completed [facility] DTaP, Unspecified Formulation Unknown Completed [facility] DTaP, Unspecified Formulation Unknown Completed [facility] DTaP, Unspecified Formulation Unknown Completed [facility] DTaP, Unspecified Formulation Unknown Completed [facility] HEPATITIS A Unknown Completed [facility] Hep B, Adol or Pedi Dosage Unknown Completed [facility] Hep B, Adol or Pedi Dosage Unknown Completed [facility] Hep B, Adol or Pedi Dosage Unknown Completed [facility] HIB 4 Dose Schedule Unknown Completed [facility] HIB 4 Dose Schedule Unknown Completed [facility] Haemophilus influenzae type b vaccine, conjugate unspecified formulation Unknown Completed [facility] HPV Unknown Completed [facility] Meningococcal Polysaccharide (groups A, C, Y and W-135) conjugate vaccine (MCV4P) Unknown Completed [facility] MMR Unknown Completed [facility] MMR Unknown Completed [facility] IPV Unknown Completed [facility] IPV Unknown Completed [facility] Poliovirus, Live, Oral, Trivalent Unknown Completed [facility] Poliovirus, Live, Oral, Trivalent Unknown Completed [facility] HPV9 Unknown Completed [facility] TDAP Unknown Completed [facility] TDAP Unknown Completed [facility] DTaP, Unspecified Formulation Unknown Completed [facility] DTaP, Unspecified Formulation Unknown Completed [facility] DTaP, Unspecified Formulation Unknown Completed [facility] DTaP, Unspecified Formulation Unknown Completed [facility] HEPATITIS A Unknown Completed [facility] Hep B, Adol or Pedi Dosage Unknown Completed [facility] Hep B, Adol or Pedi Dosage Unknown Completed [facility] Hep B, Adol or Pedi Dosage Unknown Completed [facility] HIB 4 Dose Schedule Unknown Completed [facility] HIB 4 Dose Schedule Unknown Completed [facility] Haemophilus influenzae type b vaccine, conjugate unspecified formulation Unknown Completed [facility] HPV Unknown Completed [facility] Vital Signs Vital Name Observation Time Observation Value Comments S ource Systolic blood pressure 2023-08-06 19:07:00 135 mm[Hg] [facility] Diastolic blood pressure 2023-08-06 19:07:00 93 mm[Hg] [facility] Heart rate 2023-08-06 19:04:00 81 /min [facility] Body temperature 2023-08-06 19:04:00 36.11 Ava [facility] Respiratory rate 2023-08-06 19:04:00 18 /min [facility] Body height 2023-08-06 19:04:00 165.1 cm [facility] Body weight 2023-08-06 19:04:00 140.66 kg [facility] BMI 2023-08-06 19:04:00 51.60 kg/m2 [facility] Oxygen saturation in Arterial blood by Pulse oximetry 2023-08-06 19:04:00 100 /min [facility] Systolic blood pressure 2023-06-21 16:24:00 156 mm[Hg] [facility] Diastolic blood pressure 2023-06-21 16:24:00 98 mm[Hg] [facility] Heart rate 2023-06-21 16:24:00 94 /min [facility] Body temperature 2023-06-21 16:24:00 37.22 Vaa [facility] Respiratory rate 2023-06-21 16:24:00 16 /min [facility] Body height 2023-06-21 16:24:00 165.1 cm [facility] Body weight 2023-06-21 16:24:00 127.007 kg [facility] BMI 2023-06-21 16:24:00 46.59 kg/m2 [facility] Oxygen saturation in Arterial blood by Pulse oximetry 2023-06-21 16:24:00 100 /min [facility] Systolic blood pressure 2023-01-24 20:58:00 132 mm[Hg] [facility] Diastolic blood pressure 2023-01-24 20:58:00 96 mm[Hg] [facility] Heart rate 2023-01-24 20:56:00 95 /min [facility] Body temperature 2023-01-24 20:56:00 36.67 Ava [facility] Respiratory rate 2023-01-24 20:56:00 18 /min [facility] Body height 2023-01-24 20:56:00 165.1 cm [facility] Body weight 2023-01-24 20:56:00 138.937 kg [facility] BMI 2023-01-24 20:56:00 50.97 [facility] in Arterial blood by Pulse oximetry 2023-01-24 20:56:00 100 /min [facility] Systolic blood pressure 2022-12-25 19:43:00 131 mm[Hg] [facility] Diastolic blood pressure 2022-12-25 19:43:00 86 mm[Hg] [facility] Heart rate 2022-12-25 19:43:00 72 /min [facility] Body temperature 2022-12-25 19:43:00 36.28 Ava [facility] Respiratory rate 2022-12-25 19:43:00 16 /min [facility] Body height 2022-12-25 19:43:00 165.1 cm [facility] Body weight 2022-12-25 19:43:00 138.347 kg [facility] BMI 2022-12-25 19:43:00 50.75 kg/m2 [facility] Oxygen saturation in Arterial blood by Pulse oximetry 2022-12-25 19:43:00 99 /min [facility] Systolic blood pressure 2022-01-20 20:03:00 135 mm[Hg] [facility] Diastolic blood pressure 2022-01-20 20:03:00 87 mm[Hg] [facility] Heart rate 2022-01-20 20:03:00 87 /min [facility] Body temperature 2022-01-20 20:03:00 36.56 Ava [facility] Respiratory rate 2022-01-20 20:03:00 17 /min [facility] Body height 2022-01-20 20:03:00 165.1 cm [facility] Body weight 2022-01-20 20:03:00 118.706 kg [facility] BMI 2022-01-20 20:03:00 43.55 kg/m2 [facility] Systolic blood pressure 2021-12-22 13:14:00 125 mm[Hg] [facility] Diastolic blood pressure 2021-12-22 13:14:00 86 mm[Hg] [facility] Heart rate 2021-12-22 13:14:00 96 /min [facility] Body temperature 2021-12-22 13:14:00 36.61 Ava [facility] Respiratory rate 2021-12-22 13:14:00 20 /min [facility] Body height 2021-12-22 13:14:00 165.1 cm [facility] Body weight 2021-12-22 13:14:00 108.41 kg [facility] BMI 2021-12-22 13:14:00 39.77 kg/m2 [facility] Systolic blood pressure 2021-11-29 12:00:00 142 mm[Hg] [facility] Diastolic blood pressure 2021-11-29 12:00:00 87 mm[Hg] [facility] Heart rate 2021-11-29 12:00:00 79 /min [facility] Body temperature 2021-11-29 12:00:00 36.72 Ava [facility] Respiratory rate 2021-11-29 12:00:00 18 /min [facility] Oxygen saturation in Arterial blood by Pulse oximetry 2021-11-29 12:00:00 100 /min [place] [facility] [place] Body height 2021-11-26 08:32:00 165.1 cm [facility] Body weight 2021-11-26 08:32:00 114.034 kg Univ [facility] BMI 2021-11-26 08:32:00 41.84 kg/m2 [facility] Systolic blood pressure 2021-11-23 14:45:00 133 mm[Hg] [facility] Diastolic blood pressure 2021-11-23 14:45:00 102 mm[Hg] [place] [facility] Heart rate 2021-11-23 14:42:00 77 /min [facility] Body temperature 2021-11-23 14:42:00 36.33 Ava [facility] Respiratory rate 2021-11-23 14:42:00 18 /min [facility] Body height 2021-11-23 14:42:00 165.1 cm [facility] Body weight 2021-11-23 14:42:00 114.17 kg [facility] BMI 2021-11-23 14:42:00 41.89 kg/m2 [facility] Systolic blood pressure 2021-11-11 15:03:00 120 mm[Hg] [facility] Diastolic blood pressure 2021-11-11 15:03:00 82 mm[Hg] [facility] Heart rate 2021-11-11 14:58:00 105 /min [facility] Body temperature 2021-11-11 14:57:00 36.33 Ava [facility] Respiratory rate 2021-11-11 14:57:00 18 /min [facility] Body height 2021-11-11 14:57:00 165.1 cm [facility] Body weight 2021-11-11 14:57:00 113.541 kg [facility] BMI 2021-11-11 14:57:00 41.65 kg/m2 [facility] Systolic blood pressure 2021-10-27 23:55:00 129 mm[Hg] [facility] Diastolic blood pressure 2021-10-27 23:55:00 76 mm[Hg] [facility] Heart rate 2021-10-27 23:55:00 88 /min [facility] Oxygen saturation in Arterial blood by Pulse oximetry 2021-10-27 23:55:00 96 /min [facility] Body temperature 2021-10-27 23:14:00 37 Ava [facility] Respiratory rate 2021-10-27 23:14:00 18 /min [facility] Body height 2021-10-27 22:26:00 165.1 cm [facility] Body weight 2021-10-27 22:26:00 111.131 kg [facility] BMI 2021-10-27 22:26:00 40.77 kg/m2 [facility] Systolic blood pressure 2021-10-27 18:08:00 140 mm[Hg] [facility] Diastolic blood pressure 2021-10-27 18:08:00 94 mm[Hg] [facility] Heart rate 2021-10-27 18:07:00 88 /min [facility] Body temperature 2021-10-27 18:07:00 35.61 Ava [facility] Respiratory rate 2021-10-27 18:07:00 18 /min [facility] Body weight 2021-10-27 18:07:00 110.224 kg [facility] BMI 2021-10-27 18:07:00 40.44 kg/m2 [facility] Procedures Procedure Date / Time Performed Performing Clinician Source POCT TEST 2023-06-21 16:30:00 Zaynab Trivedi ra [facility] URINALYSIS 2023-06-21 16:29:00 [facility] 2023-01-15 06:01:00 Doc tor Unassigned, Holly [facility] INSURANCE CORRESPONDENCE 2023-01-06 06:01:00 Doc tor Unassigned, Holly [facility] GARDASIL 9 (HPV 9V) VACCINE 2022-12-25 20:04:37 Jess Munson [facility] POCT TEST 2022-01-20 20:18:00 Annette Voss Gloria [facility] DME/SUPPLY JUSTIFICATION 2022-01-03 06:01:00 Doc sandra Unassigned, Holly [facility] CBC WITH DIFF 2021-11-28 08:48:00 Adum, Vanessa Sears [facility] CENTRAL NEURAXIAL BLOCK 2021-11-26 20:52:15 Wilver Owens [facility] HB ABO GROUPING 2021-11-26 09:30:00 Adum, Vanessa Sev[facility] LACTATE DEHYDROGENASE 2021-11-26 09:29:00 Adum, Vanessa Cowan [facility] URIC ACID 2021-11-26 09:29:00 Adum, Vanessa Cowan [facility] COMP. METABOLIC PANEL ([id number]) 2021-11-26 09:29:00 Adum, Vanessa Cowan [facility] URINE DRUG (IMMUNOASSAY) - COMPREHENSIVE DRUG SCREEN 2021-11-26 09:29:00 Adum, Vanessa Cowan [facility] CBC WITH DIFF 2021-11-26 09:29:00 Adum, Vanessa Sears [facility] URINALYSIS 2021-11-26 09:29:00 Adum, Vanessa Cowan [facility] HEPATITIS B SURFACE ANTIGEN 2021-11-26 09:29:00 Adum, Vanessa Cowan [facility] ADC OR [place] ONLY - RPR 2021-11-26 09:29:00 Adum, Sonia Cowan [facility] HIV 1/2 AG-AB WITH REFLEX 2021-11-26 09:29:00 Adum, Sonia Cowan [facility] CONSENT/REFUSAL FOR DIAGNOSIS AND TREATMENT 2021-11-26 08:08:59 Doctor Unassigned, Holly [facility] POCT URINALYSIS 2021-11-23 14:56:00 Rodrick Pete [facility] POCT URINALYSIS 2021-11-11 14:58:00 Rodrick Pete [facility] CONSENT/REFUSAL FOR DIAGNOSIS AND TREATMENT 2021-10-27 22:13:12 Doctor Unassigned, Holly [facility] POCT URINALYSIS 2021-10-27 18:21:00 Rodrick Pete [facility] Encounters Start Date/Time End Date/Time Encounter Type Admission Type Attending [facility] Care Department Encounter ID Source 2023-09-05 10:40:00 2023-09-05 10:40:00 Outpatient R OBI-FRANKLIN , JESS OBI-FRANKLIN , JESS [facility] [id number] [facility] 2023-08-13 14:40:00 2023-08-13 14:40:00 Outpatient R OBI-FRANKLIN , JESS [facility] [id number] [facility] 2023-08-06 14:30:00 2023-08-06 14:45:00 Branch Or Department Chief Librarian Visit 2, Ad[facility] 1.2.840.114 350.1.13.10 4.2.7.2.686 [id number] [facility] 2023-08-06 14:30:00 2023-08-06 14:30:00 Outpatient R OBI-FRANKLIN , JESS [facility] [id number] [facility] 2023-08-06 13:40:00 2023-08-06 14:29:31 [facility] 1.2.840.114 350.1.13.10 4.2.7.2.686 [id number] [facility] 2023-08-06 08:40:00 2023-08-06 08:40:00 Outpatient R OBI-FRANKLIN , JESS [facility] [id number] [facility] 2023-07-31 00:00:00 2023-08-01 12:29:54 Telephone Konrad Beasley [facility] 1.2.840.114 350.1.13.10 4.2.7.2.686 [id number] [facility] 2023-07-31 00:00:00 2023-07-31 18:10:27 [facility] 1.2.840.114 350.1.13.10 4.2.7.2.686 [id number] [id number] [facility] 2023-07-30 00:00:00 2023-07-31 09:10:12 Patient Secure Msg Obi-Franklin [facility] BUILDING 1.2.840.114 350.1.13.10 4.2.7.2.686 [id number] [facility] 2023-07-25 00:00:00 2023-07-25 09:15:22 [facility] 1.2.840.114 350.1.13.10 4.2.7.2.686 [id number] [facility] 2023-05-29 00:00:00 2023-06-30 18:07:42 Patient Secure Msg Obi-Franklin [facility] BUILDING 1.2.840.114 350.1.13.10 4.2.7.2.686 [id number] [facility] 2023-06-21 11:31:00 2023-06-21 12:29:00 Emergency [facility] [id number] [facility] 2023-06-21 11:31:00 2023-06-21 12:29:00 Emergency Bonita Trivedi [facility] 1.2.840.114 350.1.13.10 4.2.7.2.686 [id number] [facility] 2023-06-18 08:40:00 2023-06-18 08:40:00 Outpatient R OBI-FRANKLIN , JESS [facility] [id number] [facility] 2023-06-12 00:00:00 2023-06-12 00:00:00 Patient Secure Msg Obi-Franklin , [facility] 1.2.840.114 350.1.13.10 4.2.7.2.686 [id number] [facility] 2023-06-06 13:00:00 2023-06-06 13:00:00 Outpatient R OBI-FRANKLIN , JESS [facility] [id number] [facility] 2023-05-29 00:00:00 2023-05-29 00:00:00 Refill Obi-Franklin , Jess [facility] 1.2.840.114 350.1.13.10 4.2.7.2.686 [id number] [facility] 2023-04-25 15:00:00 2023-04-25 15:00:00 Outpatient R OBI-FRANKLIN , JESS [facility]ANKLIN [facility] [id number] [facility] 2023-04-23 00:00:00 2023-04-23 00:00:00 [facility] 1.2.840.114 350.1.13.10 4.2.7.2.686 [id number] [facility] 2023-04-11 00:00:00 2023-04-11 00:00:00 [facility] 1.2.840.114 350.1.13.10 4.2.7.2.686 [id number] [facility] 2023-04-05 00:00:00 2023-04-05 00:00:00 Telephone Jeimy [facility] BUILDING 1.2.840.114 350.1.13.10 4.2.7.2.686 [id number] [facility] 2023-04-03 00:00:00 2023-04-03 00:00:00 Telephone Carlos Ibrahim [facility] 1.2.840.114 350.1.13.10 4.2.7.2.686 [id number] [facility] 2023-04-03 00:00:00 2023-04-03 00:00:00 Patient Secure Msg Arun-Franklin [facility] BUILDING 1.2.840.114 350.1.13.10 4.2.7.2.686 [id number] [facility] 2023-04-01 00:00:00 2023-04-01 00:00:00 Refill Obi-Franklin [facility] BU[facility] 1.2.840.114 350.1.13.10 4.2.7.2.686 [id number] [facility] 2023-03-02 00:00:00 2023-03-02 00:00:00 Refill Obi-Franklin [facility] BU[facility] 1.2.840.114 350.1.13.10 4.2.7.2.686 [id number] [id number] [facility] 2023-02-19 00:00:00 2023-02-19 00:00:00 [facility] 1.2.840.114 350.1.13.10 4.2.7.2.686 [id number] [facility] 2023-01-26 00:00:00 2023-01-26 00:00:00 Patient Secure Msg Doctor Unassigned, Holly [facility] 1.20.114 350.1.13.10 4.2.7.2.686 [id number] [id number] [facility] 2023-01-24 15:00:00 2023-01-24 15:25:03 Outpatient [facility] [id number] [facility] 2023-01-24 15:00:00 2023-01-24 15:25:03 [facility] 1.2840.114 350.1.13.10 4.2.7.2.686 [id number] [facility] 2023-01-16 00:00:00 2023-01-16 00:00:00 Refill Ob-Franklin , [facility] BUILDING 1.2840.114 350.1.13.10 4.2.7.2.686 [id number] [id number] [facility] 2023-01-15 00:00:00 2023-01-15 00:00:00 Orders Only Doctor Unassigned, Holly [facility] 1.2840.114 350.1.13.10 4.2.7.2.686 [id number] [facility] 2023-01-15 00:00:00 2023-01-15 00:00:00 Patient Secure Msg Doctor Unassigned, Holly [facility] 1.2.840.114 350.1.13.10 4.2.7.2.686 [id number] [id number] [facility] 2023-01-08 00:00:00 2023-01-08 00:00:00 Telephone Obi-Franklin [facility] 1.2.840.114 350.1.13.10 4.2.7.2.686 [id number] [facility] 2023-01-06 00:00:00 2023-01-06 00:00:00 Orders Only Doctor Unassigned, Holly [facility] 1.2.840.114 350.1.13.10 4.2.7.2.686 [id number] [facility] 2023-01-05 00:00:00 2023-01-05 00:00:00 Telephone ObGadiel [facility] BU[facility] 1.2.840.114 350.1.13.10 4.2.7.2.686 [id number] [facility] 2023-01-03 00:00:00 2023-01-03 00:00:00 [facility] 1.2.840.114 350.1.13.10 4.2.7.2.686 [id number] [id number] [facility] 2023-01-01 00:00:00 2023-01-01 00:00:00 Patient Secure Msg Doctor Unassigned, Holly [facility] 1.2.840.114 350.1.13.10 4.2.7.2.686 [id number] [id number] [facility] 2022-12-28 00:00:00 2022-12-28 00:00:00 Patient Secure Msg Jeimy [facility] PROFESSIO NAL BUILDING 1.2.840.114 350.1.13.10 4.2.7.2.686 [id number] 044 [id number] [facility] 2022-12-26 00:00:00 2022-12-26 00:00:00 Telephone Jeimy [facility] PROFESSIO NAL BUILDING 1.2.840.114 350.1.13.10 4.2.7.2.686 [id number] [id number] [facility] 2022-12-25 14:45:00 2022-12-25 15:00:00 Branch Or Department Chief Librarian Visit 2, Adc Lab [facility] 1.2.840.114 350.1.13.10 4.2.7.2.686 [id number] [facility] 2022-12-25 14:00:00 2022-12-25 14:14:40 Outpatient R OBI-JESS REID OBSuzanne-FRANKLIN , [facility] [id number] [facility] 2022-12-25 14:00:00 2022-12-25 14:14:40 [facility] 1.2.840.114 350.1.13.10 4.2.7.2.686 [id number] [id number] [facility] 2022-12-19 10:00:00 2022-12-19 10:00:00 Outpatient R OBI-JESS REID O[facility]uzanne[facility]FRANKLIN , [facility] [id number] [facility] 2022-07-19 15:30:00 2022-07-19 15:30:00 Outpatient R KAMILA MILAN [facility] [id number] [facility] 2022-04-14 10:00:00 2022-04-14 10:00:00 Outpatient R [facility] [id number] [facility] 2022-01-20 13:00:00 2022-01-20 14:43:14 Outpatient JACINTA DAVIES [facility] [id number] [facility] 2022-01-20 13:00:00 2022-01-20 14:43:14 Office Visit Provider, Meche Harvey Brenda A [facility] 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686 [id number] [facility] 2021-12-29 00:00:00 2021-12-29 00:00:00 Patient Secure Rodrick Schwartz [facility] LIGHT RAIL 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 [facility] MATERNAL & CHILD [facility] 1.0.114 350.1.13.10 4.2.7.2.686 [id number] 107 [id number] [facility] 2021-12-22 07:45:00 2021-12-22 08:42:11 Outpatient R JACINTA VOSS [facility] [id number] [facility] 2021-12-22 07:45:00 2021-12-22 08:42:11 Routine Visit Provider, Dylan-Rmchp Jacinta Parra [facility] LIGHT RAIL 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 [facility] MATERNAL & CHILD [facility] 1.84.114 350.1.13.10 4.2.7.2.686 [id number] 107 [id number] [facility] 2021-12-03 00:00:00 2021-12-03 00:00:00 Patient Secure Msg Doctor Unassigned, Holly [facility] 1..114 350.1.13.10 4.2.7.2.686 [id number] [facility] 2021-11-30 00:00:00 2021-11-30 00:00:00 Patient Secure Msg PeteRodrick [facility] LIGHT RAIL 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 [facility] 1..114 350.1.13.10 4.2.7.2.686 [id number] 107 [id number] [facility] 2021-11-26 03:26:00 2021-11-29 10:05:00 Inpatient P VANESSA LEYVA [facility] [id number] [facility] 2021-11-26 03:26:00 2021-11-29 10:05:00 Hospital Encounter Vanessa Leyva [facility] 1..114 350.1.13.10 4.2.7.2.686 [id number] 083 [id number] [facility] 2021-11-26 15:34:00 2021-11-27 08:48:00 Anesthesia Event Wilver Owens [facility] 1.2.840.114 350.1.13.10 4.2.7.2.686 [id number] [facility] 2021-11-26 10:17:37 2021-11-26 10:17:37 Anesthesia Event Wilver Owens [facility] 1.2.840.114 350.1.13.10 4.2.7.2.686 [id number] [id number] [facility] 2021-11-23 09:45:00 2021-11-23 10:25:58 Outpatient LOVE SANTA EMILY [facility] [id number] [facility] 2021-11-23 09:45:00 2021-11-23 10:25:58 [facility] Norton Emily J. [facility] LIGHT RAIL 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 [facility]ERNAL & CHILD [facility] 1.2.840.114 350.1.13.10 4.2.7.2.686 [id number] 107 [id number] [facility] 2021-11-11 09:45:00 2021-11-11 10:12:23 Routine Visit Rodrick Pete [facility] LIGHT RAIL 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 [facility]ER[facility] & CHILD [facility] 1.2.840.114 350.1.13.10 4.2.7.2.686 [id number] 107 [id number] [facility] 2021-11-11 09:45:00 2021-11-11 10:12:23 Outpatient R RODRICK PETE [facility] [id number] [facility] 2021-11-11 00:00:00 2021-11-11 00:00:00 Patient Secure Msg Rodrick Pete [facility] LIGHT RAIL 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 [facility] & CHILD [facility] 1.2.840.114 350.1.13.10 4.2.7.2.686 [id number] 107 [id number] [facility] 2021-11-09 00:00:00 2021-11-09 00:00:00 Telephone He Rodrick Mosquera [facility] LIGHT RAIL 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 [facility] & CHILD [facility] 1.2.840.114 350.1.13.10 4.2.7.2.686 [id number] 107 [id number] [facility] 2021-11-07 00:00:00 2021-11-07 00:00:00 Refill He Rodrick [facility] LIGHT RAIL 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 [facility] & CHILD [facility] 1.2.840.114 350.1.13.10 4.2.7.2.686 [id number] 107 [id number] [facility] 2021-10-27 17:35:00 2021-10-27 19:05:00 Outpatient X BRENDA VELÁSQUEZ [facility] [id number] [facility] 2021-10-27 17:35:00 2021-10-27 19:05:00 Emergency Eduardo VelásquezFernando Dolan [facility] 1.2.840.114 350.1.13.10 4.2.7.2.686 [id number] [facility] 2021-10-27 12:45:00 2021-10-27 13:34:39 Outpatient R RODRICK PETE [facility] [id number] [facility] 2021-10-27 12:45:00 2021-10-27 13:34:39 Routine Visit Rodrick Pete [facility] LIGHT RAIL 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 [facility] & CHILD [facility] 1.2.840.114 350.1.13.10 4.2.7.2.686 [id number] 107 [id number] [facility] 2021-10-27 12:45:00 2021-10-27 12:45:00 Outpatient R RODRICK PETE [facility] [id number] [facility] 2021-10-27 00:00:00 2021-10-27 00:00:00 Orders Only Doctor Unassigned, Holly [facility] 1.84.114 350.1.13.10 4.2.7.2.686 [id number] [facility] 2021-10-26 00:00:00 2021-10-26 00:00:00 Abstract Rodrick Pete [facility] LIGHT RAIL 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 [facility] & CHILD [facility] 1.84.114 350.1.13.10 4.2.7.2.686 [id number] 107 [id number] [facility] 2021-10-21 09:45:00 2021-10-21 10:30:00 Branch Or Department Chief Librarian Visit Ultrasound, Vinh Stone [facility] LIGHT RAIL 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 [facility] & CHILD [facility] 1.840.114 350.1.13.10 4.2.7.2.686 [id number] [facility] 2021-10-21 09:45:00 2021-10-21 09:45:00 Outpatient VINH JOY SANGEETA [facility] [id number] [facility] 2021-10-18 00:00:00 2021-10-18 00:00:00 Patient Secure Msg Doctor Unassigned, Holly [facility] LIGHT RAIL 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 [facility] & CHILD [facility] .840.114 350.1.13.10 4.2.7.2.686 [id number] 107 [id number] [facility] 2021-10-18 00:00:00 2021-10-18 00:00:00 Telephone Rodrick Pete [facility] LIGHT RAIL 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 [facility] .84.114 350.1.13.10 4.2.7.2.686 [id number] 107 [id number] [facility] 2021-10-14 08:00:00 2021-10-14 08:34:31 Outpatient R RODRICK PETE [facility] [id number] [facility] 2021-10-14 08:00:00 2021-10-14 08:34:31 Routine Visit Marie Petegloria Mosquera [facility] LIGHT RAIL 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 [facility] & CHILD [facility] 1..114 350.1.13.10 4.2.7.2.686 [id number] 107 [id number] [facility] 2021-09-29 10:45:00 2021-09-29 11:39:29 Outpatient R YUSUF PETEELSA [facility] [id number] [facility] 2021-09-29 10:45:00 2021-09-29 11:39:29 Routine Visit Marie Petegloria [facility] LIGHT RAIL 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 [facility] & CHILD [facility] 1..114 350.1.13.10 4.2.7.2.686 [id number] 107 [id number] [facility] 2021-09-29 10:45:00 2021-09-29 10:45:00 Outpatient R YUSUF PETEELSA [facility] [id number] [facility] 2021-09-16 00:00:00 2021-09-16 00:00:00 Patient Secure Msg Doctor Unassigned, Holly [facility] 1.114 350.1.13.10 4.2.7.2.686 [id number] [facility] 2021-09-16 00:00:00 2021-09-16 00:00:00 Telephone Kiki Petecuauhtemoc [facility] LIGHT RAIL 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 [facility] 1..114 350.1.13.10 4.2.7.2.686 [id number] 107 [id number] [facility] 2021-09-16 00:00:00 2021-09-16 00:00:00 Telephone Kiki Petecuauhtemoc [facility] LIGHT RAIL 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 [facility] & CHILD [facility] 1..114 350.1.13.10 4.2.7.2.686 [id number] 107 [id number] [facility] 2021-09-15 10:45:00 2021-09-15 11:53:13 Outpatient R RODRICK PETE [facility] [id number] [facility] 2021-09-15 10:45:00 2021-09-15 11:53:13 Routine Visit Rodrick Pete [facility] LIGHT RAIL 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 [facility] & CHILD [facility] 1..114 350.1.13.10 4.2.7.2.686 [id number] 107 [id number] [facility] 2021-09-13 00:00:00 2021-09-13 00:00:00 Refill Rodrick Pete [facility] LIGHT RAIL 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 [facility] & CHILD [facility] 1..114 350.1.13.10 4.2.7.2.686 [id number] 107 [id number] [facility] 2021-08-23 08:45:00 2021-08-23 22:46:00 Outpatient X BRENDA VELÁSQUEZ [facility] [id number] [facility] 2021-08-23 08:45:00 2021-08-23 22:46:00 Emergency Martinez, IvannaBrenda Poole [facility] 1.84.114 350.1.13.10 4.2.7.2.686 [id number] [facility] 2021-08-18 10:30:00 2021-08-18 10:44:10 Outpatient R RODRICK PETE [facility] [id number] [facility] 2021-08-18 10:30:00 2021-08-18 10:44:10 Routine Visit Rodrick Pete [facility] LIGHT RAIL 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 [facility] & CHILD [facility] 1..114 350.1.13.10 4.2.7.2.686 [id number] 107 [id number] [facility] 2021-08-11 00:00:00 2021-08-11 00:00:00 Patient Secure Msg Rodrick Pete [facility] LIGHT RAIL 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 [facility] 1.0.114 350.1.13.10 4.2.7.2.686 [id number] 107 [id number] [facility] 2021-08-11 00:00:00 2021-08-11 00:00:00 Rodrick Buckner [facility] LIGHT RAIL 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 [facility] 1.840.114 350.1.13.10 4.2.7.2.686 [id number] 107 [id number] [facility] 2021-08-11 00:00:00 2021-08-11 00:00:00 Rodrick Buckner [facility] LIGHT RAIL 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 [facility] 1.840.114 350.1.13.10 4.2.7.2.686 [id number] 107 [id number] [facility] 2021-08-11 00:00:00 2021-08-11 00:00:00 Rodrick Buckner [facility] LIGHT RAIL 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 [facility] 1.0.114 350.1.13.10 4.2.7.2.686 [id number] 107 [id number] [facility] 2021-08-02 00:00:00 2021-08-02 00:00:00 Abstract Rodrick Pete [facility] LIGHT RAIL 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 [facility] 1.2840.114 350.1.13.10 4.2.7.2.686 [id number] 107 [id number] [facility] 2021-08-01 00:00:00 2021-08-01 00:00:00 Patient Secure Msg Doctor Unassigned, Holly [facility] LIGHT RAIL 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 [facility] 1.20.114 350.1.13.10 4.2.7.2.686 [id number] 107 [id number] [facility] 2021-07-29 09:30:00 2021-07-29 10:45:00 Branch Or Department Chief Librarian Visit Ultrasound, DylanMfm Rodrick Pete Antonio F [facility] LIGHT RAIL 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 [facility] & CHILD [facility] 1.840.114 350.1.13.10 4.2.7.2.686 [id number] [facility] 2021-07-29 09:30:00 2021-07-29 09:30:00 Outpatient P [facility] [id number] [facility] 2021-07-29 09:30:00 2021-07-29 09:30:00 Outpatient P MADDIE ROMEO [facility] [id number] [facility] 2021-07-29 08:00:00 2021-07-29 08:36:27 Branch Or Department Chief Librarian Visit Lab, Dylan-Rmchp Rodrick Pete [facility] LIGHT RAIL 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 [facility] 1..114 350.1.13.10 4.2.7.2.686 [id number] 107 [id number] [facility] 2021-07-23 00:00:00 2021-07-23 00:00:00 Patient Secure Msg Doctor Unassigned, Holly [facility] 1..114 350.1.13.10 4.2.7.2.686 [id number] [facility] 2021-07-21 09:00:00 2021-07-21 10:12:55 Outpatient R RODRICK PETE [facility] [id number] [facility] 2021-07-21 09:00:00 2021-07-21 10:12:55 Routine Visit Rodrick Pete [facility] LIGHT RAIL 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 [facility] & CHILD [facility] 1.840.114 350.1.13.10 4.2.7.2.686 [id number] 107 [id number] [facility] 2021-07-21 09:00:00 2021-07-21 10:12:55 Outpatient KIKI DENNISTAYLAGloria [facility] [id number] [facility] 2021-07-21 09:00:00 2021-07-21 09:00:00 Outpatient KIKI DENNISCUAUHTEMOC [facility] [id number] [facility] 2021-07-21 09:00:00 2021-07-21 09:00:00 Outpatient KIKI DENNISELSA [facility] [id number] [facility] 2021-07-17 02:36:00 2021-07-17 06:54:00 Emergency X CARO BAUER [facility] ERT [id number] [facility] 2021-07-17 02:36:00 2021-07-17 06:54:00 Emergency Caro Bauer S [facility] 1.2840.114 350.1.13.10 4.2.7.2.686 [id number] [facility] 2021-07-12 00:00:00 2021-07-12 00:00:00 Telephone Pete Kikicuauhtemoc Mosquera [facility] LIGHT RAIL 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 [facility] & CHILD [facility] 1.2840.114 350.1.13.10 4.2.7.2.686 [id number] 107 [id number] [facility] 2021-07-06 00:00:00 2021-07-06 00:00:00 Telephone Kiki Petecuauhtemoc Mosquera [facility] LIGHT RAIL 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 [facility] & CHILD [facility] 1.2.840.114 350.1.13.10 4.2.7.2.686 [id number] 107 [id number] [facility] 2021-06-28 01:26:00 2021-06-29 10:10:00 Outpatient X FISH, BRENDA [facility] [id number] [facility] 2021-06-28 01:26:00 2021-06-29 10:10:00 Emergency Alayna Bear Megan [facility] 1.2.840.114 350.1.13.10 4.2.7.2.686 [id number] [facility] 2021-06-27 20:49:00 2021-06-27 20:59:00 Emergency X [facility] ERT [id number] [facility] 2021-06-27 20:49:00 2021-06-27 20:59:00 Emergency [facility] 1.2.840.114 350.1.13.10 4.2.7.2.686 [id number] [facility] 2021-06-24 00:00:00 2021-06-24 00:00:00 Patient Secure Msg Rodrick Pete [facility] LIGHT RAIL 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 [facility]ER[facility] & CHILD [facility] 1.2.840.114 350.1.13.10 4.2.7.2.686 [id number] 107 [id number] [facility] 2021-06-24 00:00:00 2021-06-24 00:00:00 Telephone Rodrick Pete [facility] LIGHT RAIL 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 [facility]ER[facility] & CHILD [facility] 1.2.840.114 350.1.13.10 4.2.7.2.686 [id number] 107 [id number] [facility] 2021-06-23 14:00:00 2021-06-23 15:33:45 Outpatient R RODRICK PETE [facility] [id number] [facility] 2021-06-23 14:00:00 2021-06-23 15:33:45 Initial Visit Rodrick Pete [facility] LIGHT RAIL 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 [facility]ER[facility] & CHILD [facility] 1.2.840.114 350.1.13.10 4.2.7.2.686 [id number] 107 [id number] [facility] 2021-06-23 14:00:00 2021-06-23 15:33:45 Outpatient RODRICK DENNIS [facility] [id number] [facility] 2021-06-23 14:00:00 2021-06-23 15:33:45 Outpatient RODRICK DENNIS [facility] [id number] [facility] 2021-06-23 00:00:00 2021-06-23 00:00:00 Orders Only Doctor Unassigned, Holly [facility] 1.2.840.114 350.1.13.10 4.2.7.2.686 [id number] [facility] 2021-06-22 08:04:00 2021-06-22 13:00:00 Emergency X DWYERANGUS [facility] ERT [id number] [facility] 2021-06-22 08:04:00 2021-06-22 13:00:00 Emergency Angus Dwyer [facility] 1.2.840.114 350.1.13.10 4.2.7.2.686 [id number] [facility] 2021-06-21 22:18:00 2021-06-21 23:26:00 Emergency Caro Bauer [facility] 1.2.840.114 350.1.13.10 4.2.7.2.686 [id number] [facility] 2021-06-21 22:18:00 2021-06-21 23:26:00 Emergency X CARO BAUER [facility] ERT [id number] [facility] 2021-06-21 22:18:00 2021-06-21 23:26:00 Emergency X CARO BAUER [facility] ERT [id number] [facility] 2021-06-11 12:44:00 2021-06-14 18:06:00 Inpatient X [facility] JOSE DE JESUS [facility] [id number] [facility] 2021-06-11 12:44:00 2021-06-14 18:06:00 Hospital Encounter Abdullahi Gomez Christopher Adum, Jose De Jesus Vick Candelario [facility] 1.2.840.114 350.1.13.10 4.2.7.2.686 [id number] [facility] 2021-05-30 23:49:00 2021-06-03 14:41:00 Hospital Encounter Abdullahi Gomez, Edith [facility] 1.2.840.114 350.1.13.10 4.2.7.2.686 [id number] [facility] 2021-05-30 23:49:00 2021-06-03 14:41:00 Inpatient X EDITH TERRY [facility] [id number] [facility] Results Test Description Test Time Test Comments Results Result Co mments Source [facility] [id number] 20:18:00* Test Item Value Reference Range Interpretation Comme nts POCT PREG (test code = 1605) Negative On board controls acceptable with C Line (test code = 3574) Yes POCT PREG LOT # (test code = 3575) POCT PREG TEST DATE ( test code = 3576) [facility] [id number] 20:18:00* Test Item Value Reference Range Interpretation Comme nts POCT PREG (test code = 1605) Negative On board controls acceptable with C Line (test code = 3574) Yes POCT PREG LOT # (test code = 3575) POCT PREG TEST DATE ( test code = 3576) [facility] AliceDK ROMEO STOUT - [id number] 04:42:10* Test Item Value Reference Range Interpretation Comme nts RPR (Qualitative) (test code = 69425-8) Nonreactive Nonreactive Lab Interpretation (test cod e = 58089-8) Normal [facility] Alice[facility]atitis B Surface [id number] 17:49:35 * Test Item Value Reference Range Interpretation Comme nts HBsAg Semi-Quantitative (mesha t code = 5195-3) Negative Negative [facility]HIV [facility]/2 AG-AB WITH [id number] 12:19:16* Test Item Value Reference Range Interpretation Comme nts HIV Semi-quantitative (test code = 11233-9) Negative Negative RUMA (test code = RUMA) Non-reactive for HIV-1 antigen and HIV-1/HIV-2 antibodies. ?No laboratory evidence of HIV infection. ?Repeat in 2-4 weeks if acute HIV infection is suspected. [facility]. METABOLIC PANEL (37592)2021-11-26 11:29:08* Test Item Value Reference Range Interpretation Comme nts NA (test code = 5105527748) 137 mmol/L 135-145 K (test code = 6406891869) 3.6 mmol/L 3.5-5 CL (test code = 8180157084) 105 mmol/L 98-108 CO2 TOTAL (test code = 0269640852) 21 mmol/L 23-31 L AGAP (test code = 2631694821) 2-16 BUN (test code = 2872019091) 4 mg/dL 7-23 L GLUCOSE (test code = 9745910759) 93 mg/dL 70-110 CREATININE (test code = 2200391153) 0.49 mg/dL 0.5-1.04 L TOTAL BILI (test code = 1326884354) 0.2 mg/dL 0.1-1.1 CALCIUM (test code = 6568329311) 9.0 mg/dL 8.6-10.6 T PROTEIN (test code = 7166010632) 6.9 g/dL 6.3-8.2 ALBUMIN (test code = 5765873185) 3.7 g/dL 3.5-5 ALK PHOS (test code = 4559108041) 169 U/L 34-122 H ALTv (test code = 1742-6) 15 U/L 5-35 AST(SGOT) (test code = 3125044186) 23 U/L 13-40 eGFR (test code = 7567189636) mL/min/1.73m2 RUMA (test code = RUMA) Association [...] imaging tests). Lab Interpretation (test code = 05666-3) Abnormal [facility]IC [id number] 11:28:48* Test Item Value Reference Range Interpretation Comme [facility] URIC ACID (test code = 2275355080) 3.4 mg/dL 2.9-6 Lab Interpretation (test cod e = 17049-5) Normal [facility] AliceLACTATE [id number] 11:24:10* Test Item Value Reference Range Interpretation Comme nts LDH (test code = 8993758326) 216 U/L 120-246 Lab Interpretation (test cod e = 98928-7) Normal [facility] and Screen - ONCE [id number] 10:30:18 * Test Item Value Reference Range Interpretation Comme nts ABO & RH (test code = 20) O Positive Performed at [facility] Laboratory Services - [facility] Blood [address] [place] [id number] Free: [phone] No. [id number] IAT (test code = 1185) Negative Performed at [facility] Laboratory Services - [facility] Blood [address] [place] [id number] Free: [phone] No. [id number] [facility] Alice[facility] with [id number] 09:46:38* Test Item Value Reference Range Interpretation Comme nts WBC (test code = 6690-2) See_Comment H [Automated messa ge] The system which generated this result transmitted reference range: 4.30 - 11.10 10*3/?L. The reference range was not used to interpret this result as normal/abnormal. RBC (test code = 789-8) See_Comment L [Automated messa ge] The system which generated this result transmitted reference range: 3.93 - 5.25 10*6/?L. The reference range was not used to interpret this result as normal/abnormal. HGB (test code = 718-7) 11.6 g/dL 11.6-15 HCT (test code = 4544-3) 33.2 % 35.7-45.2 L MCV (test code = 787-2) 92.0 fL 80.6-95.5 MCH (test code = 785-6) 32.1 pg 25.9-32.8 MCHC (test code = 786-4) 34.9 g/dL 31.6-35.1 RDW-SD (test code = 84090-5) 40.9 fL 39-49.9 RDW-CV (test code = 788-0) 12.2 % 12-15.5 PLT (test code = 777-3) See_Comment [Automated messa ge] The system which generated this result transmitted reference range: 166 - 358 10*3/?L. The reference range was not used to interpret this result as normal/abnormal. MPV (test code = 37450-6) 9.9 fL 9.5-12.9 NRBC/100 WBC (test code = 8006709215) See_Comment [Automated me ssage] The system which generated this result transmitted reference range: 0.0 - 10.0 /100 WBCs. The reference range was not used to interpret this result as normal/abnormal. NRBC x10^3 (test code = 2889680485) See_Comment [Automated messa ge] The system which generated this result transmitted reference range: 10*3/?L. The reference range was not used to interpret this result as normal/abnormal. GRAN MAT (NEUT) % (test code = 770-8) 70.4 % IMM GRAN % (test code = 5926465154) 0.70 % LYMPH % (test code = 736-9) 20.1 % MONO % (test code = 5905-5) 6.0 % EOS % (test code = 713-8) 2.5 % BASO % (test code = 706-2) 0.3 % GRAN MAT x10^3(ANC) (test code = 3246184515) 8.92 10*3/uL 1.88-7.09 H IMM GRAN x10^3 (test code = 0036961651) 0.09 10*3/uL 0-0.06 H LYMPH x10^3 (test code = 731-0) 2.55 10*3/uL 1.32-3.29 MONO x10^3 (test code = 742-7) 0.76 10*3/uL 0.33-0.92 EOS x10^3 (test code = 711-2) 0.32 10*3/uL 0.03-0.39 BASO x10^3 (test code = 704-7) 0.04 10*3/uL 0.01-0.07 Lab Interpretation (test code = 92623-7) Abnormal [facility] URINALYSIS W SPECIFIC [id number] 14:56:00* Test Item Value Reference Range Interpretation Comme nts POCT U SP GRAV (test code = 3255) * 1.005-1.025 POCT PH U (test code = 3254) * 5-8 POCT U LEUK EST (test code = 3263) * Negative - Negative POCT U NIT (test code = 3262) * Negative - Negati ve POCT U PROT (test code = 3259) 1+ Negative - Negat destini POCT U GLU (test code = 3256) negative Negative - Negati ve POCT U KETONE (test code = 3258) * Negative - Neg ative POCT U UROBILI (test code = 3260) * 0.2-1 POCT U BILI (test code = 3261) * Negative - Negat destini POCT U BLD (test code = 3257) * Negative - Negati ve POCT U COLOR (test code = 3266) * POCT U APPEAR (test code = 3267) [facility] URINALYSIS W SPECIFIC [id number] 14:56:00* Test Item Value Reference Range Interpretation Comme nts POCT U SP GRAV (test code = 3255) * 1.005-1.025 POCT PH U (test code = 3254) * 5-8 POCT U LEUK EST (test code = 3263) * Negative - Negative POCT U NIT (test code = 3262) * Negative - Negati ve POCT U PROT (test code = 3259) 1+ Negative - Negat destini POCT U GLU (test code = 3256) negative Negative - Negati ve POCT U KETONE (test code = 3258) * Negative - Neg ative POCT U UROBILI (test code = 3260) * 0.2-1 POCT U BILI (test code = 3261) * Negative - Negat destini POCT U BLD (test code = 3257) * Negative - Negati ve POCT U COLOR (test code = 3266) * POCT U APPEAR (test code = 3267) [facility] URINALYSIS W SPECIFIC [id number] 14:58:00* Test Item Value Reference Range Interpretation Comme nts POCT U SP GRAV (test code = 3255) . 1.005-1.025 POCT PH U (test code = 3254) . 5-8 POCT U LEUK EST (test code = 3263) . Negative - N egative POCT U NIT (test code = 3262) . Negative - Negati ve POCT U PROT (test code = 3259) Trace Negative - Negat destini POCT U GLU (test code = 3256) Neg Negative - Negati ve POCT U KETONE (test code = 3258) . Negative - Neg ative POCT U UROBILI (test code = 3260) . 0.2-1 POCT U BILI (test code = 3261) . Negative - Negat destini POCT U BLD (test code = 3257) . Negative - Negati ve POCT U COLOR (test code = 3266) POCT U APPEAR (test code = 3267) [facility] URINALYSIS W SPECIFIC [id number] 14:58:00* Test Item Value Reference Range Interpretation Comme nts POCT U SP GRAV (test code = 3255) . 1.005-1.025 POCT PH U (test code = 3254) . 5-8 POCT U LEUK EST (test code = 3263) . Negative - N egative POCT U NIT (test code = 3262) . Negative - Negati ve POCT U PROT (test code = 3259) Trace Negative - Negat destini POCT U GLU (test code = 3256) Neg Negative - Negati ve POCT U KETONE (test code = 3258) . Negative - Neg ative POCT U UROBILI (test code = 3260) . 0.2-1 POCT U BILI (test code = 3261) . Negative - Negat destini POCT U BLD (test code = 3257) . Negative - Negati ve POCT U COLOR (test code = 3266) POCT U APPEAR (test code = 3267) [facility] URINALYSIS W SPECIFIC [id number] 14:58:00* Test Item Value Reference Range Interpretation Comme nts POCT U SP GRAV (test code = 3255) . 1.005-1.025 POCT PH U (test code = 3254) . 5-8 POCT U LEUK EST (test code = 3263) . Negative - N egative POCT U NIT (test code = 3262) . Negative - Negati ve POCT U PROT (test code = 3259) Trace Negative - Negat destini POCT U GLU (test code = 3256) Neg Negative - Negati ve POCT U KETONE (test code = 3258) . Negative - Neg ative POCT U UROBILI (test code = 3260) . 0.2-1 POCT U BILI (test code = 3261) . Negative - Negat destini POCT U BLD (test code = 3257) . Negative - Negati ve POCT U COLOR (test code = 3266) POCT U APPEAR (test code = 3267) [facility] URINALYSIS W SPECIFIC [id number] 14:58:00* Test Item Value Reference Range Interpretation Comme nts POCT U SP GRAV (test code = 3255) . 1.005-1.025 POCT PH U (test code = 3254) . 5-8 POCT U LEUK EST (test code = 3263) . Negative - N egative POCT U NIT (test code = 3262) . Negative - Negati ve POCT U PROT (test code = 3259) Trace Negative - Negat destini POCT U GLU (test code = 3256) Neg Negative - Negati ve POCT U KETONE (test code = 3258) . Negative - Neg ative POCT U UROBILI (test code = 3260) . 0.2-1 POCT U BILI (test code = 3261) . Negative - Negat destini POCT U BLD (test code = 3257) . Negative - Negati ve POCT U COLOR (test code = 3266) POCT U APPEAR (test code = 3267) [facility] URINALYSIS W SPECIFIC [id number] 14:58:00* Test Item Value Reference Range Interpretation Comme nts POCT U SP GRAV (test code = 3255) . 1.005-1.025 POCT PH U (test code = 3254) . 5-8 POCT U LEUK EST (test code = 3263) . Negative - N egative POCT U NIT (test code = 3262) . Negative - Negati ve POCT U PROT (test code = 3259) Trace Negative - Negat destini POCT U GLU (test code = 3256) Neg Negative - Negati ve POCT U KETONE (test code = 3258) . Negative - Neg ative POCT U UROBILI (test code = 3260) . 0.2-1 POCT U BILI (test code = 3261) . Negative - Negat destini POCT U BLD (test code = 3257) . Negative - Negati ve POCT U COLOR (test code = 3266) POCT U APPEAR (test code = 3267) [facility] URINALYSIS W SPECIFIC [id number] 18:21:00* Test Item Value Reference Range Interpretation Comme nts POCT U SP GRAV (test code = 3255) * 1.005-1.025 POCT PH U (test code = 3254) * 5-8 POCT U LEUK EST (test code = 3263) * Negative - Negative POCT U NIT (test code = 3262) * Negative - Negati ve POCT U PROT (test code = 3259) 1+ Negative - Negat destini POCT U GLU (test code = 3256) negative Negative - Negati ve POCT U KETONE (test code = 3258) * Negative - Neg ative POCT U UROBILI (test code = 3260) * 0.2-1 POCT U BILI (test code = 3261) * Negative - Negat destini POCT U BLD (test code = 3257) * Negative - Negati ve POCT U COLOR (test code = 3266) * POCT U APPEAR (test code = 3267) [facility] Notes Date/Time Note Provider Source 2023-08-06 14:30:00 6739-92-82Q64:30:00 Images from the original note were not included.Venipuncture collection performed by clean technique on the right anticubitus. Total of 1 attempts were made. Slight pressure and a bandage/dressing were applied to the site(s). The patient experienced no complications. The following specimens were processed according to instructions and sent to [facility] laboratories per lab order on 08/06/2023:LT BLUESST 2REDLAV 2PPTDK GREEN (LiHep) 1DK GREEN (SodH)GRAYDK BLUE (K2) 1DK BLUE (S)ACDBlood CultureNIPT/NTD 68428-0Yoilp WcdlUN4750-63-57K10:43:43Nurse NoteTXT1.2.840.892934.1.13.104.2.7.2. 300575|[id number] for patient fqss55415-6Jjbwi NoteLNNARRATIVEFormatted C-CDA narrative textUTMBUT - Deulho739 University Lc[id number] LZXAFWWBLIZFFZJXRYKAG6581-77-61N86:43 :431.2.840.117677.1.72.3.15|1.2.840.1 27675.1.13.104.2.7.2.727879_[id number] 1 [facility] 2023-08-01 12:29:00 4772-84-63Z90:29:00 Attempted to reach patient to schedule with [employer]ACHINE OPERATOR Piper radford. 49404-2Iwwkehtbl encounter IzucUY0489-93-34U67:55:56Telephone encounter NoteTXT1.2.840.404785.1.13.104.2.7.2. 039489|[id number] for patient apyj28031-6NqrtFICVWUSZFQSRblxdacgs C-CDA narrative [id number] [address] Ut[id number] KHDIHPVYQRBXDFRZFLNLM7469-00-25Y96:55 :561.2.840.939681.1.72.3.15|1.2.840.1 25546.1.13.104.2.7.2.727879_[id number] 2 Elin Trivedi [facility] 2023-07-31 18:24:47 9279-01-54S61:24:47 You can schedule an appointment with me in person and we can review other options. Dr. Dias is out of office till next week. 23022-5Snckywppp encounter GedsDD5123-80-27D99:25:56Telephone encounter NoteTXT1.2.840.874825.1.13.104.2.7.2. 614969|[id number] for patient zotq76265-6AaaqXPYLSCOBQQAFotncluiq C-CDA narrative text[address] Ra[id number] HSXSQMIGEGYCZAHQFCLBC5662-75-32H82:25 :561.2.840.697711.1.72.3.15|1.2.840.1 91392.1.13.104.2.7.2.727879_[id number] 2 [facility] 2023-07-31 16:57:43 0491-41-04C18:57:43 Images from the original note were not included.Routed to provider for review. Unable to refill per ambulatory refill guidelines.Notes:phentermine 37.5 mg tabletSig: Take 1 tablet by mouth daily with breakfast.Disp: 30 tablet Refills: 0Start: 4Class: eRXNon-formulary For: Class 3 severe obesity due to excess calories with serious comorbidity and body mass index (BMI) of 50.0 to 59.9 in adult; BMI 50.0-59.9, adultLast ordered: 2 months ago (05/29/2023) by ARELIS Kowalskiatifausto comment: Attempting this medicine again after two months with more diet and lifestyle changes to get best resultsOff-Protocol Qweiop4907/31/2023 02:47 PMProtocol Details Medication not assigned to a protocol, forward to provider.Valid encounter within last 12 monthsTo be filled at: [facility] [address] [place] [address] Refilled: 4Recent VisitsDate Type Provider Dept103/27/22 Office Visit Jess Munson MD [facility]70/06/23 Office Visit Jess Munson MD [facility] MedicineShowing recent visits within past 540 days with a meds authorizing provider and meeting all other requirementsFuture AppointmentsDate Type Provider Dept08/13/23 Appointment Obi-Franklin, Jess, MD [facility] MedicineShowing future appointments within next 150 days with a meds authorizing provider and meeting all other requirements 47716-4Atotqtmqo encounter BsodCD8582-27-52E55:58:54Telephone encounter NoteTXT1.2.840.578642.1.13.104.2.7.2. 516759|[id number] for patient dcjx42612-6FhkeJCUGLKHPKEXCandapjjk C-CDA narrative [id number] Corral MA[address] Jc[id number] YKGFNZFODRWQIIBTCLHYA6230-25-69S90:58 :541.2.840.289698.1.72.3.15|1.2.840.1 33117.1.13.104.2.7.2.727879_[id number] 7 Dhara Corral MA [facility] 2023-07-25 08:53:56 9432-09-88U76:53:56 Images from the original note were not included.Requested RenewalstraZODone 100 mg tabletSig: Take 1 tablet by mouth at bedtime.Disp: 90 tablet Refills: 0Start: 07/25/2023lass: eRXNon-formulary For: Primary insomniaLast ordered: 3 months ago (04/23/2023) by ARELIS Kowalskisychiatry: Antidepressants Ewwgss2207/25/2023 08:38 AMProtocol Details Manual Review: Verify no changes in dose in the last 3 monthsValid encounter within last 12 monthsTo be filled at: [id number] [place], [place] - [address] [id number] N/A 88715-7Hlexjxmpf encounter RusuEE7889-08-08C70:54:58Telephone encounter NoteTXT1.2.840.723540.1.13.104.2.7.2. 803278|[id number] for patient neyf89932-1TmgeIDRSKBDATOXKbikeewxb C-CDA narrative shrm807883431Kxkmgc M Serrano [id number] EGILWTCHMZEVLACULBUEZ7552-45-29S59:54 :581.2.840.065681.1.72.3.15|1.2.840.1 85596.1.13.104.2.7.2.727879_[id number] 9 Sabi Corrales [facility] 2023-07-25 08:38:07 3673-48-22B99:38:07 Images from the original note were not included. 70331-9Awduexaju encounter MxtdJV9253-82-99Y63:38:37Telephone encounter NoteTXT1.2.840.312284.1.13.104.2.7.2. 806069|[id number] for patient sivp51083-8YnohLHANNAXEXTBAiddjvrqw C-CDA narrative text[address] [id number] ZHJCOGWAOWPXSVNJHSHFT8532-26-75K53:38 :371.2.840.915499.1.72.3.15|1.2.840.1 81523.1.13.104.2.7.2.727879_[id number] 6 [facility] 2023-06-21 12:29:19 6712-70-11C33:29:19 Patient dc home. Follow up with pcp. Verbalized understanding. 28745-5Mhnrazsjh department ZqpzHF3378-29-19Z80:29:35[facility] NoteTXT1.2.840.220126.1.13.104.2.7.2. 663595|[id number] for patient xbdu38904-8YkfuNCBJBZQPWWSHnrlmrien C-CDA narrative rpub366335132Xspyzmc Anna Segovia RN[id number] ZPHWHCDXGDIJVVTORHFHC2519-27-36B08:29 :351.2.840.585452.1.72.3.15|1.2.840.1 54591.1.13.104.2.7.2.727879_[id number] 2 Prosper Segovia RN [facility] 2023-06-21 11:23:37 0417-17-02K07:23:37 Pt arrived via private car with c/o dysuria x3 days 31976-1Zeekxbqhz department Triage wxrnUL1146-96-07A76:25:16[facility] department Triage noteTXT1.2.840.702819.1.13.104.2.7.2. 569829|[id number] for patient kued42365-7Ioyerhyux department NoteLNNARRATIVEFormatted C-CDA narrative exkb404478778Qjbdx L Barker RN[id number] WFILVAFLFXGWBXYLQFTZK7024-68-95G43:25 :161.2.840.982827.1.72.3.15|1.2.840.1 45925.1.13.104.2.7.2.727879_[id number] 8 Kelly Rolon RN [facility] 2023-06-21 11:14:00 3050-18-54T29:14:00 [facility] Emergency Department NotePatient Name: Lanre Renteria of : 1995 27 year old femaleTreatment Room: Room/bed info not foundMedical Record Number: [id number] Care Physician: Jess Robbins Escorted by: Self [9]Mode of Arrival: Personal means [1]EMS Treatment Prior to ED Arrival:Travel and Exposure Screening:SymptomsDoes patient have any of these symptoms?: (not recorded)Exposure ScreeningHas patient had contact with someone with a communicable disease in the last month?: (not recorded)Diseases exposed to:: (not recorded)Is Patient ?: (not recorded)Exposure Date: (not recorded)Chief Complaint:Chief ComplaintPatient presents withDYSURIAHistory of Present Illness:The patient presents from home for evaluation for 3 days of dysuria as well as right-sided low back pain. No nausea or vomiting. No fevers or chills. No medications for her symptoms. Her last menstrual period was 2 weeks ago. No history of diabetes.Here for evaluation.Past Medical History/Immunizations:Past Medical History:Diagnosis DateEndometriosisPapanicolaou smear of cervix with low grade squamous intraepithelial lesion (LGSIL) 07/06/2021Tetrahydrocannabinol (THC) use disorder, mild, abuse 06/28/2021llergies:AllergiesAllergen ReactionsReglan [Metoclopramide] Extra pyramidal effectsEggs [Egg] Unknown - See commentsPast Social History:Tobacco UseFormerSmokeless Tobacco: Never used smokeless tobacco.Comments: marijuana,no nicotine stopped for pregnancyAlcohol UseNot Currently.Drug UseNot Currently; Marijuana.Comments: stopped for pregnancySexual ActivitySexually active; Partners: Male; Control/Protection: None.Comments: last sexual intercourse 01/16/2022ast Surgical History:History reviewed. No pertinent surgical history.Review of Systems:Review of SystemsConstitutional: Negative for chills and fever.Respiratory: Negative for cough and shortness of breath.Cardiovascular: Negative for chest pain.Gastrointestinal: Negative for abdominal pain, nausea and vomiting.Genitourinary: Positive for dysuria and flank pain.Musculoskeletal: Negative for arthralgias, neck pain and neck stiffness.Skin: Negative for wound.Neurological: Negative for dizziness.Psychiatric/Behavioral: Negative for agitation.Endocrine: Negative for goiter.Physical Exam:ED Triage Vitals [06/21/23 1124]Weight 127 kg (280 lb)Actual or estimated Estimated by patient/family reportHeight 1.651 m (5' 5")BP (!) 156/98Pulse 94Resp 16Temp 37.2 ?C (99 ?F)Temp source OralSpO2 100 %Measured on Room airPhysical ExamVitals and nursing note reviewed.Constitutional:Appearance: Normal appearance. She is obese.HENT:Head: Normocephalic and atraumatic.Cardiovascular:Rate and Rhythm: Normal rate and regular rhythm.Pulses: Normal pulses.Pulmonary:Effort: Pulmonary effort is normal. No respiratory distress.Abdominal:General: There is no distension.Palpations: Abdomen is soft. There is no mass.Tenderness: There is no abdominal tenderness. There is no guarding or rebound.Hernia: No hernia is present.Musculoskeletal:General: Normal range of motion.Cervical back: Normal range of motion and neck supple.Skin:General: Skin is warm and dry.Neurological:General: No focal deficit present.Mental Status: She is alert and oriented to person, place, and time.Radiology:No orders to displayLab Results:Lab ResultsURINALYSIS - AbnormalResult Value Ref RangeAPPEARANCE Cloudy (*) ClearCOLOR Yellow YellowPH 7.0 4.8 - 8.0SP GRAVITY 1.013 1.003 - 1.030GLU U QUAL Normal NormalBLOOD 2+ (*) NegativeKETONES Negative NegativePROTEIN 100 mg/dL (*) NegativeUROBILIN Normal NormalBILIRUBIN Negative NegativeNITRITE Negative NegativeLEUK GIA 250/uL (*) NegativeRBC/HPF 119 (*) 0 - 3 HPFWBC/HPF 173 (*) 0 - 5 HPFBACTERIA Few (*) NegativeMUCOUS Slight (*) Negative LPFSQ EPITH 13 HPFWBC CLUMPS 1 <=1 HPFTRANS EPI <1 <=1 HPFREN EPITH 3 (*) <=1 HPFPOCT TEST - NormalPOCT PREG NegativeOn board controls acceptable with C Line YesPOCT PREG LOT # [id number] PREG TEST DATE 03/28/2024EKG:If EKG completed, see Procedure Note.Orders and Treatments:Orders Placed This EncounterProceduresPOCT TESTURINALYSISOrders Placed This EncounterMedicationssulfamethoxazole- trimethoprim 800-160 mg per tabletFirst Provider Eval:ED EventsDate/Time Event User Apcqgami38/02/24 1118 Medical Screening Begins SHIKHA BONITA --06/21/23 1118 First Provider Evaluation SHIKHA FERRELL BONITA --ED COURSEDiagnosis/Impression as of 06/21/23 1216DysuriaAcute cystitis without hematuriaProcedures:ProceduresMDM:Med ical Decision MakingThe patient presents from home for evaluation for 3 days of dysuria as well as right-sided low back pain. No nausea or vomiting. No fevers or chills. No medications for her symptoms. Her last menstrual period was about 2 weeks ago.Vital signs are stable in the ER.The patient is obese.Her abdomen is soft and nontender on examination.She has no CVA tenderness bilaterally.Will check a UPT as well as a urinalysis to evaluate for possible UTI versus pyelonephritis.Anticipate discharge home later.1215 -the patient is doing well here in the ER.Her UPT is negative.Her urinalysis shows an infection.Will treat the patient with antibiotics.She remained stable here in the ER and is okay for discharge home with PCP follow-up.Problems Addressed:Acute cystitis without hematuria: acute illness or injuryDysuria: acute illness or injuryAmount and/or Complexity of Data ReviewedLabs: ordered. Decision-making details documented in ED Course.RiskPrescription drug management.Flowsheet Documentation:Scoring Tools:No data recordedDisposition/Condition:ED DispositionED DispositionDisch - HomeConditionStableComment--Discharge Medications:Patient's MedicationsSTART taking these medicationsSULFAMETHOXAZOLE-TRIMETHOP RIM 800-160 MG PER TABLET Take 1 tablet by mouth every 12 (twelve) hours.CONTINUE taking these medications which have NOT CHANGEDERGOCALCIFEROL, VITAMIN D2, (VITAMIN D2) 1,250 MCG (50,000 UNIT) CAPSULE Take 1 capsule by mouth weekly.PHENTERMINE 37.5 MG TABLET Take 1 tablet by mouth daily with breakfast.TRAZODONE 100 MG TABLET Take 1 tablet by mouth at bedtime.ZOLPIDEM 5 MG TABLET Take 1 tablet by mouth at bedtime as needed for Insomnia.START taking Modified Medications as PrescribedNo medications on fileSTOP taking these medicationsNo medications on fileFollow-up:Electronically signed by:Bonita Trivedi DO06/21/23 1216 54142-0Fjaikzcjl Emergency department MpbnMG7937-52-76E02:16:08Physician Emergency department NoteTXT1.2.840.610944.1.13.104.2.7.2. 106865|[id number] for patient kzpt94308-5Gumrwevve department NoteLNNARRATIVEFormatted C-CDA narrative text[address] [id number] KHYWEHOUNXNRFNXJBMCCV0862-19-23L85:16 :081.2.840.421887.1.72.3.15|1.2.840.1 28904.1.13.104.2.7.2.727879_[id number] 7 [facility] 2023-06-12 14:39:19 2198-99-32H77:39:19 Call placed to pt to discuss MyChart message. 04455-3Flwjdwpdu encounter TfteDM1198-34-29Z73:42:18Telephone encounter NoteTXT1.2.840.972872.1.13.104.2.7.2. 161741|[id number] for patient jmzv15995-1MxvuLUFXUBZHNEAKsupbjrjr C-CDA narrative xtqs832013214Ygqjy Garcia V, RNUT65 Duncan [id number] JPLNJDZHUHLPMBLMCNYZX8280-44-73Y03:42 :181.2.840.570695.1.72.3.15|1.2.840.1 33392.1.13.104.2.7.2.727879_[id number] 2 Elne Thomason RN [facility] - [facility] 2023-05-29 14:42:38 7622-86-18Y49:42:38 Images from the original note were not included.Notes:phentermine 37.5 mg tabletSig: Take 1 tablet by mouth daily with breakfast.Disp: 30 tablet Refills: 0Start: 05/29/2023lass: eRXNon-formulary For: Class 3 severe obesity due to excess calories with serious comorbidity and body mass index (BMI) of 50.0 to 59.9 in adult; BMI 50.0-59.9, adultLast ordered: 1 month ago (04/12/2023) by Jess Munson MDOff-Protocol Zcuqcc2005/29/2023 02:20 PMProtocol Details Medication not assigned to a protocol, forward to provider.Valid encounter within last 12 monthsTo be filled at: [facility] [address] [place] [address] Refilled: 04/12/23Recent VisitsDate Type Provider Dept103/27/22 Office Visit Jess Munson MD [facility]12/25/22 Office Visit Jess Munson MD [facility] Family MedicineShowing recent visits within past 540 days with a meds authorizing provider and meeting all other requirementsFuture AppointmentsDate Type Provider Dept06/06/23 Appointment Jess Munson MD [facility] MedicineShowing future appointments within next 150 days with a meds authorizing provider and meeting all other requirements 48253-4Xfgmgjhrl encounter RmmbPQ6159-55-50A36:43:17Telephone encounter NoteTXT1.2.840.640721.1.13.104.2.7.2. 158355|[id number] for patient wgss87072-8HagaGDPAJTGNLZOBxyhfkzuv C-CDA narrative qahl835618450Mzoxvva R Martinez [address] AcccFvqopwggaHsgwhksofDRCM9555203138J MGZULFBCWOAIWBGVAQKMD1417-10-38I02:43 :171.2.840.434117.1.72.3.15|1.2.840.1 35220.1.13.104.2.7.2.727879_[id number] 7 Dhara Corral [facility] 2023-04-23 10:14:44 8356-62-77K53:14:44 Images from the original note were not included.Routed to provider for review. Unable to refill per ambulatory refill guidelines.Notes:traZODone 100 mg tabletSig: Take 1 tablet by mouth at bedtime.Disp: 90 tablet Refills: 0Start: 04/23/2023lass: eRXNon-formulary For: Primary insomniaLast ordered: 2 months ago (01/24/2023) by ARELIS Kowalskisychiatry: Antidepressants Frhczd7604/23/2023 09:19 AMProtocol Details Manual Review: Verify no changes in dose in the last 3 monthsValid encounter within last 12 monthsTo be filled at: [id number] [facility] Ref[facility]: 01/24/2023Recent VisitsDate Type Provider Dept103/27/22 Office Visit Jess Munson MD [facility] Nvsuoanp39/06/23 Office Visit Jess Munson MD [facility] MedicineShowing recent visits within past 540 days with a meds authorizing provider and meeting all other requirementsFuture AppointmentsDate Type Provider Dept04/25/23 Appointment Jess Munson MD [facility] Family MedicineShowing future appointments within next 150 days with a meds authorizing provider and meeting all other requirements 32617-2Oxqeqfmsb encounter QnxkMX3359-06-89A36:15:32Telephone encounter NoteTXT1.2.840.878588.1.13.104.2.7.2. 483979|[id number] for patient qtgz84007-2UudyTIVUDLGTWTNJzskmwdgi C-CDA narrative kjxn098094333Fgdsztj R Ellis [id number] PORWPRIBKQAOTQXENATJK9858-12-43G46:15 :321.2.840.684594.1.72.3.15|1.2.840.1 78224.1.13.104.2.7.2.727879_[id number] 0 Dhara Mosquera Ellis [facility] 2023-04-13 17:36:40 9481-80-08U07:36:40 Refill request approved after communication with patient via [employer]. 83807-3Qbdxohztp encounter NiqnCG7898-99-15T76:37:05Telephone encounter NoteTXT1.2.840.705303.1.13.104.2.7.2. 044102|[id number] for patient jeom08038-1DmbyWLIRZQHQEVIBltwxdxet C-CDA narrative swga704390317Ppampuv A Nelson RN[id number] RPPPNUTWSGVHOVIUFLBIT3750-81-51W05:37 :051.2.840.535643.1.72.3.15|1.2.840.1 80437.1.13.104.2.7.2.727879_[id number] 0 Melissa Jimenez RN [facility] 2023-04-11 15:07:24 5120-54-50T70:07:24 Images from the original note were not included.Requested Renewalsphentermine 37.5 mg tabletSig: Take 1 tablet by mouth daily with breakfast.Disp: 30 tablet Refills: 0Start: 04/11/2023lass: eRXNon-formulary For: Class 3 severe obesity due to excess calories with serious comorbidity and body mass index (BMI) of 50.0 to 59.9 in adult; BMI 50.0-59.9, adultLast ordered: 1 month ago (03/02/2023) by Jess Munson MDOff-Protocol Cguejl9104/11/2023 02:55 PMProtocol Details Medication not assigned to a protocol, forward to provider.Valid encounter within last 12 monthsTo be filled at: [address] [id number] [id number] signed by Sabi Corrales MA at 04/11/2023 3:08 PM [id number] encounter [id number]:08:11Telephone encounter [id number]. [id number] for patient [id number]ke C-CDA narrative [id number] M Serrano MA[address] [id number] HVYVGHLKAXDMPCEDSJFWQ8093-08-66L33:08 :111.2.840.406219.1.72.3.15|1.2.840.1 [id number] 8 Sabi Corrales MA [facility] 2023-04-02 12:51:41 4289-51-04L01:51:41 Images from the original note were not included.Last OV: 01/24/2023 with Jess Paulino Refill: 02/20/2023 prescribed by Jess Obi-NwankwoLast Labs Pertaining to Med: N/AFuture Appt:Future AppointmentsProvider Department Dept Phone04/25/2023 3:00 PM Jess Munson MD [facility], [place] [phone] to provider for review. Unable to refill per ambulatory refill guidelines.zolpidem 5 mg tabletSig: Take 1 tablet by mouth at bedtime as needed for Insomnia.Disp: 30 tablet Refills: 0Start: 4Class: eRXFor: Primary insomniaLast ordered: 1 month ago (02/20/2023) by ARELIS Kowalskirovicarina Review Required Ofucvi4204/01/2023 01:01 PMProtocol Details This refill cannot be delegatedValid encounter within last 12 months 47316-1Vmhuyuadr encounter RwpbNJ9807-11-08A53:52:32Telephone encounter NoteTXT1.2.840.887828.1.13.104.2.7.2. 019439|[id number] for patient tlaf86589-8YjhsAZOVVULCBWQZpwocbexg C-CDA narrative [id number] A Nelson RN[address]Ag[id number] WUERQNCRSWAIULFVAFFWB5275-37-28B98:52 :321.2.840.406296.1.72.3.15|1.2.840.1 [id number] 9 Melissa Jimenez RN [facility] 2023-03-02 13:44:04 2857-92-59H33:44:04 Images from the original note were not included.Requested Renewalsphentermine 37.5 mg tabletSig: Take 1 tablet by mouth daily with breakfast.Disp: 30 tablet Refills: 0Start: 03/02/2023lass: eRXNon-formulary For: Class 3 severe obesity due to excess calories with serious comorbidity and body mass index (BMI) of 50.0 to 59.9 in adult; BMI 50.0-59.9, adultLast ordered: 1 month ago (01/26/2023) by Jess Munson MDOff-Protocol Ipcwfo2703/02/2023 01:27 PMProtocol Details Medication not assigned to a protocol, forward to provider.Valid encounter within last 12 monthsTo be filled at: [address] [id number] signed by Sabi Corrales MA at 03/02/2023 1:44 PM HUP48997-9Ikcmdzqxv encounter XrqcJM1198-48-09V18:44:51Telephone encounter NoteTXT1.2.840.335758.1.13.104.2.7.2. 919181|[id number] for patient ifhx44401-6JpxkNYHSEBVXOCJKngecibgk C-CDA narrative [id number] M Serrano MA[address] Bpiz[id number] GPQXLNYHUDCKLRIKWEZVZ0234-25-78X06:44 :511.2.840.777893.1.72.3.15|1.2.840.1 [id number] 4 Sabi Corrales MA [facility] 2023-02-19 20:36:52 7063-91-79V52:36:52 Images from the original note were not included.Last OV: 01/24/2023 with Jess Paulino Refill: 01/16/2023 prescribed by Jess Paulino Labs Pertaining to Med: N/AFuture Appt:Future AppointmentsProvider Department Dept Phone04/25/2023 3:00 PM Jess Munson MD [facility], [place] [phone] to provider for review. Unable to refill per ambulatory refill guidelines.zolpidem 5 mg tabletSig: Take 1 tablet by mouth at bedtime as needed for Insomnia.Disp: 30 tablet Refills: 0Start: 02/19/2023lass: eRXFor: Primary insomniaLast ordered: 1 month ago (01/16/2023) by Mary Kowalski Review Required Pmxaoc8102/19/2023 03:32 PMProtocol Details This refill cannot be delegatedValid encounter within last 12 months 79475-4Cxvqbdhuc encounter PhmdVR8996-57-83P26:37:46Telephone encounter NoteTXT1.2.840.536215.1.13.104.2.7.2. 876419|[id number] for patient vumw21262-7XwqsCQIXNBNLXUCPwblwbxhr C-CDA narrative [id number] A Nelson RN[address] C[id number] KYPTSZIXDKALNVSSMOUEZ7945-66-75T45:37 :461.2.840.014465.1.72.3.15|1.2.840.1 [id number] 0 Melissa Jimenez RN [facility]
[2023-08-14 18:01] LABS: Specific Gravity 1.023 (1.005-1.030)
[2023-08-14 18:04] LABS: Specific Gravity 1.023 (1.005-1.030); Sqamous Epithelial <5 /HPF (None Seen); Urine Bacteria <20 /HPF (<20); Urine Bilirubin NEGATIVE (Negative); Urine Blood 1+ (Negative); Urine Clarity Extremely Turbid (Clear); Urine Color Yellow (Yellow); Urine Crystals Unidentified Few /HPF (None Seen); Urine Culture Reflex Order REFLEXED; Urine Glucose NEGATIVE (Negative); Urine Ketones NEGATIVE (Negative); Urine Micro Reflex YN NO BILL MICROSCOPIC; Urine Mucus 2+ /HPF (None Seen); Urine Nitrite NEGATIVE (Negative); Urine Protein 1+ (Negative); Urine RBC 21-50 /HPF (None Seen); Urine Urobilinogen Normal (Normal); Urine WBC >50 /HPF (<5); Urine WBC Clump Few /HPF (None Seen); Urine Yeast (Budding) Occasional /HPF (None Seen); Urine pH 6.5 (5.0-7.0)
--- NOTE | 2023-08-14 18:35 | EDPHYS ---
Physician Documentation [facility] Name: Robin Bernard Age: 27 yrs Sex: Female : 1995 Arrival Date: 08/14/2023 Time: 17:19 Bed 11 Private MD: ED Physician Jean Carlos Dias HPI: 08/13 17:38 This 27 yrs old Black Female presents to ER via Ambulatory with complaints of Pain With sb4 Urination, blood in urine. 17:42 The patient presents with urinary symptoms, dysuria, hematuria. Onset: The sb4 symptoms/episode began/occurred 2 day(s) ago. Modifying factors: The symptoms are alleviated by nothing, the symptoms are aggravated by nothing. The patient has not experienced similar symptoms in the past. The patient has not recently seen a physician. 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 - Infectious Disease History:: Denies. - Social history:: Smoking status: Reported history of juuling and/or vaping. ROS: 17:42 Positive for injury or acute deformity, hematuria, burning with urination, sb4 17:42 Constitutional: Negative for fever, chills, and weight loss, 17:42 All other systems are negative, Exam: 18:34 Constitutional: This is a well developed, well nourished patient who is awake, alert, sb4 and in no acute distress. Head/Face: Normocephalic, atraumatic. Eyes: Extra-ocular motions intact. Periorbital areas with no swelling, redness, or edema. ENT: Mucous membranes moist. Skin: Warm, dry with normal turgor. Normal color with no rashes, no lesions, and no evidence of cellulitis. Vital Signs: 17:29 BP 112 / 65; Pulse 84; Resp 18; Temp 98.2; Pulse Ox 100% ; Weight 129.27 kg; Height 5 mb9 ft. 5 in. ; Pain 0/10; 18:51 BP 115 / 68; Pulse 77; Resp 17; Pulse Ox 99% on R/A; rs5 17:29 Body Mass Index 47.43 (129.27 kg, 165.1 cm) mb9 17:29 Pain Scale: Adult mb9 MDM: 17:25 Patient medically screened. sb4 18:34 Data reviewed: vital signs, nurses notes, lab test result(s), and as a result, I will sb4 discharge patient. Counseling: I had a detailed discussion with the patient and/or guardian regarding the historical points, exam findings, and any diagnostic results supporting the discharge/admit diagnosis, lab results, to return to the emergency department if symptoms worsen or persist or if there are any questions or concerns that arise at home. 08/13 17:26 Order name: UAM; Complete Time: 18:14 sb4 08/13 17:26 Order name: Test, Urine; Complete Time: 18:14 sb4 08/13 18:17 Order name: Urine Culture EDMS Administered Medications: 18:22 Drug: Nitrofurantoin PO 100 mg PO once; administer with food Route: PO; rs5 18:40 Follow up: Response: No adverse reaction rs5 18:22 Drug: Fluconazole PO 200 mg PO once Route: PO; rs5 18:40 Follow up: Response: No adverse reaction rs5 Disposition Summary: 08/14/23 18:34 Discharge Ordered Notes: Location: Home sb4 Problem: new sb4 Symptoms: have improved sb4 Condition: Stable sb4 Diagnosis - UTI/ Urinary tract infection, site not specified sb4 Followup: sb4 - With: Emergency Department - When: As needed - Reason: Trouble breathing, Worsening of condition Discharge Instructions: - Discharge Summary Sheet sb4 - Urinary Tract Infection, Adult, Priw-xb-Thso sb4 Forms: - Antibiotic Education sb4 - Patient Portal Instructions sb4 - Leadership Thank You Letter sb4 Prescriptions: - Macrobid 100 mg Oral Capsule - take 1 capsule ORAL route every 12 hours for 7 days; 14 capsule; Refills: 0, sb4 Product Selection Permitted Signatures: Dispatcher [employer] Lisseth Hernandez PA-C PA-C sb4 Keisha Martino RN RN mb9 Emanuel Gupta RN RN rs5
--- NOTE | 2023-08-14 18:35 | ER ---
Nurse's Notes [facility] Name: Robin Bernard Age: 27 yrs Sex: Female : 1995 Arrival Date: 08/14/2023 Time: 17:19 Bed 11 Private MD: Diagnosis: UTI/ Urinary tract infection, site not specified Presentation: 08/13 17:29 Chief complaint: Patient states: "for the past few days, I have burning with urination mb9 and some blood.". Coronavirus screen: Vaccine status: Patient reports being unvaccinated. Ebola Screen: No symptoms or risks identified at this time. Initial Sepsis Screen: Does the patient meet any 2 criteria? No. Patient's initial sepsis screen is negative. Does the patient have a suspected source of infection? No. Patient's initial sepsis screen is negative. Risk Assessment: Do you want to hurt yourself or someone else? Patient reports no desire to harm self or others. Onset of symptoms was August 14, 2023. 17:29 Acuity: BOZENA 4 mb9 17:29 Method Of Arrival: Ambulatory mb9 Triage Assessment: 17:30 General: Appears in no apparent distress. Behavior is calm, cooperative. Pain: Denies mb9 pain. EENT: No signs and/or symptoms were reported regarding the EENT system. Neuro: Level of Consciousness is awake, alert, obeys commands, Oriented to person, place, time, situation, Appropriate for age. Cardiovascular: Patient's skin is warm and dry. Respiratory: Airway is patent Respiratory effort is even, unlabored, Respiratory pattern is regular, symmetrical. GI: No signs and/or symptoms were reported involving the gastrointestinal system. : Reports burning with urination. Derm: Skin is pink, warm \\T\\ dry. 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 - Infectious Disease History:: Denies. - Social history:: Smoking status: Reported history of juuling and/or vaping. Screenin:07 [facility] ED Fall Risk Assessment (Adult) History of falling in the last 3 months, mb9 including since admission No falls in past 3 months (0 pts) Confusion or Disorientation No (0 pts) Intoxicated or Sedated No (0 pts) Impaired Gait No (0 pts) Mobility Assist Device Used No (0 pt) Altered Elimination No (0 pt) Score/Fall Risk Level 0 - 2 = Low Risk Oriented to surroundings, Maintained a safe environment, Educated pt \\T\\ family on fall prevention, incl call for assistance when getting out of bed. Abuse screen: Denies threats or abuse. Nutritional screening: No deficits noted. Tuberculosis screening: No symptoms or risk factors identified. Assessment: 17:25 General: Appears in no apparent distress. uncomfortable, Behavior is calm, cooperative. rs5 Pain: Denies pain. Neuro: Level of Consciousness is awake, alert, obeys commands, Oriented to person, place, time, situation. Cardiovascular: Patient's skin is warm and dry. Respiratory: Airway is patent Respiratory effort is even, unlabored, Respiratory pattern is regular, symmetrical. GI: Abdomen is round Abd is soft and non tender X 4 quads. : Reports burning with urination, blood in urine. EENT: No signs and/or symptoms were reported regarding the EENT system. Derm: Skin is intact, Skin is dry, Skin is normal, Skin temperature is warm. Musculoskeletal: Range of motion: intact in all extremities. 18:40 Reassessment: Patient and/or family updated on plan of care and expected duration. Pain rs5 level reassessed. Patient is alert, oriented x 3, equal unlabored respirations, skin warm/dry/pink. Vital Signs: 17:29 BP 112 / 65; Pulse 84; Resp 18; Temp 98.2; Pulse Ox 100% ; Weight 129.27 kg; Height 5 mb9 ft. 5 in. ; Pain 0/10; 18:51 BP 115 / 68; Pulse 77; Resp 17; Pulse Ox 99% on R/A; rs5 17:29 Body Mass Index 47.43 (129.27 kg, 165.1 cm) mb9 17:29 Pain Scale: Adult mb9 ED Course: 17:19 Patient arrived in ED. am2 17:22 Lisseth Dill PA-C [facility] sb4 17:22 Jean Carlos Dias MD is Attending Physician. sb4 17:29 Triage completed. mb9 17:30 Arm band placed on. mb9 17:41 Test, Urine Sent. mb9 17:41 UAM Sent. mb9 18:07 Patient has correct armband on for positive identification. Provided Education on: ER mb9 wait time for urine. 18:51 No provider procedures requiring assistance completed. Patient did not have IV access rs5 during this emergency room visit. Administered Medications: 18:22 Drug: Nitrofurantoin PO 100 mg PO once; administer with food Route: PO; rs5 18:40 Follow up: Response: No adverse reaction rs5 18:22 Drug: Fluconazole PO 200 mg PO once Route: PO; rs5 18:40 Follow up: Response: No adverse reaction rs5 Medication: 18:08 VIS not applicable for this client. mb9 Outcome: 18:34 Discharge ordered by . sb4 18:51 Discharged to home ambulatory, with family, rs5 18:51 Condition: stable 18:51 Discharge instructions given to patient, family, Instructed on discharge instructions, follow up and referral plans. medication usage, Demonstrated understanding of instructions, follow-up care, medications, Prescriptions given X 1, 18:52 Patient left the ED. rs5 Signatures: Sabi Quick Sophia PA-C PA-C sb4 Keisha Martino RN RN mb9 Emanuel Gupta RN RN rs5
[2023-08-14] MEDS ORDERED: FLUCONAZOLE 100 MG TAB ONE (18:39)
[2023-08-14] MEDS ORDERED: NITROFURAN MACRO 100 MG CAP PO ONE (18:39)
[2023-08-14 20:21] VITALS: BP 115/68; TEMP 98.2; O2SAT 99
== END 2023-08-14 18:52 | disposition home or self-care (01) ==
LOC: ER 17:19
DX: N39.0 Urinary tract infection, site not specified (principal)
CPT/HCPCS: 81001; 81025; 87086; 87088

== ENCOUNTER 2023-12-10 03:57 | Emergency (ER) | payer OTHER ==
--- OUTSIDE RECORDS SUMMARY | 2023-12-10 04:03 | XMS REPORT | Continuity of Care Document ---
Author Name Unknown Address [address] [address] [place] [address] [facility] Address [address] [place] [address] Care Team Providers Care Patrol Conductor Name Role Phone JESS MUNSON Primary Care Physician JESS Palomares Attending Clinician Unavailab JESS Killian Attending Clinician Unavailab VANESSA Keene Attending Clinician Unavailable VANESSA LEYVA Attending Clinician Unavailable TIANNA MEI Attending Clinician Unavailable TIANNA MEI Attending Clinician Unavailable Tianna Young Attending Clinician [phone] ISAAC SHAY Attending Clinician Unavailable Vanessa Leyva MD Attending Clinician [phone] Jose De Jesus Medina MD Attending Clinician [phone] JOSE DE JESUS MEDINA Attending Clinician Unavailable JOSE DE JESUS MEDINA Attending Clinician Unavailable 2, [facility] Attending Clinician Unavailable Jess Munson MD Attending Clinician [phone] KELLY SIMMS Attending Clinician UnavailKELLY Ferrera Attending Clinician UnavailCaro Butler MD Attending Clinician [phone] Kelly Simms MD Attending Clinician [phone] MAAMETIFF LOPEZ Attending Clinician Unavailable TIFF ISABEL Attending Clinician Unavailable Maame TITLE CAMERA OPERATOR, Tiff Attending Clinician [phone], [facility] Attending Clinician Unavailable Ramos TITLE CAMERA OPERATOR, Konrad Attending Clinician [phone] BONITA TRIVEDI Attending Clinician Unavailab Bonita Hernandez DO Attending Clinician [phone] Carlos Ibrahim MD Attending Clinician + [phone] Doctor Unassigned, [place] Attending Clinician U navailNICOLE Mccabe Attending Clinician Unavaila NICOLE Batista Attending Clinician Unavaila KAMILA Barrios Attending Clinician Unavailable JACINTA VOSS Attending Clinician Unavaila susu Provider, Ang-Rmchp Temp Attending Clinician Henrietta vailable Meche Richard Attending Clinician + Jacinta Voss CNM Attending Clinician [phone] MECHE ROBERSON Attending Clinician Unavail able Rodrick Carlisle Attending Clinician Unava DREW Ren Attending Clinician Unavailable RODRICK PETE Attending Clinician Unavailab Wilver Weinstein MD Attending Clinician + [phone] LOVE DOWELL Attending Clinician UnavailLOVE Gonzalez Attending Clinician UnavailBRENDA Pedro Attending Clinician Unavailable Brenda Velásquez MD Attending Clinician [phone] Richard PAC, K Maame Attending Clinician [phone] Ultrasound, Ang-Mfm Attending Clinician UnavailVinh Wong MD Attending Clinician [phone] VINH MONCADA Attending Clinician Unavailable VINH MONCADA Attending Clinician Unavailable Ivanna Rodriguez Attending Clinician [phone] Maddie Romeo MD Attending Clinician [phone] MADDIE ROMEO Attending Clinician Unavailable Lab, Ang-Rmchp Attending Clinician Unavailable CARO BAUER Attending Clinician Unavailable Yarima MD, [place] S Attending Clinician + Chema STERLINGAlayna S Attending Clinician [phone] ANGUS DWYER Attending Clinician Unavailable Angus Dwyer DO Attending Clinician +[phone] Abdullahi Gomez MD Attending Clinician +[phone] Foreign Calvillo Attending Clinician + [phone] Edith Terry MD Attending Clinician [phone] EDITH TERRY Attending Clinician Unavailable EDITH TERRY Attending Clinician Unavailable KELLY SIMMS Admitting Clinician UnavailVANESSA Garza Admitting Clinician Unavailable Vanessa Leyva MD Admitting Clinician [phone] BRENDA VELÁSQUEZ Admitting Clinician Unavailable Brenda Velásquez MD Admitting Clinician [phone] Edith Terry MD Admitting Clinician [phone] EDITH TERRY Admitting Clinician Unavailable Payers Payer Name Policy Type Policy Number Effective Date Expirati on Date Source [facility] [id number] 2021 00:00:00 Problems Condition Name Condition Details Condition Category Status Onset Date Resolution Date Last Treatment Date Treating Clinician Comments Source Hematemesi s with nausea Hematemesi s with nausea Disease Active 2023-02 0-03 00:00: 00 [facility] Coffee ground emesis Coffee ground emesis Disease Active 2023-02 0-03 00:00: 00 [facility] Abdominal pain, epigastric Abdominal pain, epigastric Disease Active 2023-02 0-03 00:00: 00 [facility] Papanicola ou smear of cervix with low grade squamous intraepith elial lesion (LGSIL) Papanicola ou smear of cervix with low grade squamous intraepith elial lesion (LGSIL) Disease Active 07-06 00:00: 00 Overview: Formattin g of this note might be different from the original. LGSIL in 2021 needs repeat pap smear in 2022. [facility] Tetrahydro cannabinol (THC) use disorder, mild, abuse Tetrahydro cannabinol (THC) use disorder, mild, abuse Disease Active 5- 00:00: 00 [facility] Vitamin D deficiency Vitamin D deficiency Disease Active 4-26 00:00: 00 [facility] Obesity (BMI 30-39.9) Obesity (BMI 30-39.9) Disease Active 4-12 00:00: 00 [facility] E46 Unspecifie d severe protein-ca ash malnutriti on E46 Unspecifie d severe protein-ca ash malnutriti on Disease Active 4- 00:00: 00 [facility] Tetrahydro cannabinol (THC) use disorder, mild, abuse Tetrahydro cannabinol (THC) use disorder, mild, abuse Disease Resolve d 5-10 00:00: 00 2022-12-25 00:00:00 2022-12-25 13:59:24 [facility] Chronic hypertensi on with superimpos ed preeclamps ia Chronic hypertensi on with superimpos ed preeclamps ia Disease Resolve d 2021-02 0-08 00:00: 00 2022-01-20 00:00:00 2022-01-20 14:17:40 [facility] Supervisio n of high risk , antepartum Supervisio n of high risk , antepartum Disease Resolve d 5-05 00:00: 00 2022-01-20 00:00:00 2022-01-20 14:17:35 [facility] GBS (group B Streptococ cus carrier), +RV culture, 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 Will need ABX in labor. [facility] Single liveborn, born in hospital, delivered by vaginal delivery Single liveborn, born in hospital, delivered by vaginal delivery Disease Resolve d 2021-02 0-09 00:00: 00 2021-12-22 00:00:00 2021-12-22 07:58:27 [facility] Morbid obesity with body mass index of 40.0-49.9 Morbid obesity with body mass index of 40.0-49.9 Disease Resolve d 2021-02 0-08 00:00: 00 2021-12-22 00:00:00 2021-12-22 15:59:51 [facility] Severe pre-eclamp shena in third trimester Severe pre-eclamp shena in third trimester Disease Resolve d 2021-02 0-08 00:00: 00 2021-12-22 00:00:00 2021-12-22 07:58:22 [facility] Elevated blood pressure reading without diagnosis of hypertensi on Elevated blood pressure reading without diagnosis of hypertensi on Disease Resolve d 0 9-08 00:00: 00 2021-12-22 00:00:00 2021-12-22 07:58:07 [facility] Proteinuri a affecting in third trimester Proteinuri a affecting in third trimester Disease Resolve d 0 9-08 00:00: 00 2021-12-22 00:00:00 2021-12-22 07:58:17 [facility] Intractabl e nausea and vomiting Intractabl e nausea and vomiting Disease Resolve d 0 7-05 00:00: 00 2021-12-22 00:00:00 2021-12-22 07:58:09 [facility] Urinary tract infection without hematuria, site unspecifie d Urinary tract infection without hematuria, site unspecifie d Disease Resolve d 0 6-02 00:00: 00 2021-12-22 00:00:00 2021-12-22 07:57:57 [facility] Nausea and vomiting during Nausea and vomiting during Disease Resolve d 2021-0 5-10 00:00: 00 2021-12-22 00:00:00 2021-12-22 07:58:11 [facility] Nausea and vomiting during Nausea and vomiting during Disease Resolve d 2021-0 5-10 00:00: 00 2021-12-22 00:00:00 2021-12-22 07:58:11 [facility] Primigravi da in second trimester Primigravi da in second trimester Disease Resolve d 2021-0 5-05 00:00: 00 2021-12-22 00:00:00 2021-12-22 07:58:15 [facility] Obesity in Obesity in Disease Resolve d 2021-0 5-05 00:00: 00 2021-12-22 00:00:00 2021-12-22 07:58:13 [facility] Chronic hypertensi on affecting Chronic hypertensi on affecting Disease Resolve d 0 4-24 00:00: 00 2021-12-22 00:00:00 2021-12-22 07:58:04 [facility] BMI 40.0-44.9, adult BMI 40.0-44.9, adult Disease Resolve d 0 4-23 00:00: 00 2021-12-22 00:00:00 2021-12-22 15:59:13 [facility] 15 weeks gestation of 15 weeks gestation of Disease Resolve d 0 4-12 00:00: 00 2021-12-22 00:00:00 2021-12-22 07:58:01 [facility] Hyperemesi s Hyperemesi s Disease Resolve d 0 5-10 00:00: 00 2021-11-26 00:00:00 2021-11-26 09:09:11 [facility] Hyperbilir ubinemia Hyperbilir ubinemia Disease Resolve d 0 4-25 00:00: 00 2021-11-26 00:00:00 2021-11-26 09:09:06 [facility] Hypomagnes emia Hypomagnes emia Disease Resolve d 0 4-25 00:00: 00 2021-11-26 00:00:00 2021-11-26 09:09:05 [facility] Hypocalcem ia Hypocalcem ia Disease Resolve d 0 4-25 00:00: 00 2021-11-26 00:00:00 2021-11-26 09:09:03 [facility] Hypokalemi a Hypokalemi a Disease Resolve d 0 4-12 00:00: 00 2021-11-26 00:00:00 2021-11-26 09:09:30 [facility] Hyponatrem ia Hyponatrem ia Disease Resolve d 4-12 00:00: 00 2021-11-26 00:00:00 2021-11-26 09:09:33 [facility] Tachycardi a Tachycardi a Disease Resolve d 4- 00:00: 00 2021-11-26 00:00:00 2021-11-26 09:09:30 [facility] Nausea and vomiting in prior to 22 weeks gestation Nausea and vomiting in prior to 22 weeks gestation Disease Resolve d 05-31 00:00: 00 2021-11-26 00:00:00 2021-11-26 09:09:43 [facility] Nausea and vomiting in prior to 22 weeks gestation Nausea and vomiting in prior to 22 weeks gestation Disease Resolve d 05-31 00:00: 00 2021-11-26 00:00:00 2021-11-26 09:09:43 [facility] Allergies, Adverse Reactions, Alerts Allergy Name Allergy Type Status Severity Reaction(s) Onset Date Inactive Date Treating Clinician Comments Source Egg Propensi ty to adverse reaction s Active Unknown - See comments - 00:00: 00 [facility] EGG DRUG INGREDI Active Unknown-Cmnt 5- 00:00: 00 [facility] Metoclop ramide Drug Allergy Active Extra pyramidal effects -12 00:00: 00 [facility] METOCLOP RAMIDE DRUG INGREDI Active Med EP Effects -12 00:00: 00 [facility] Social History Social Habit Start Date Stop Date Quantity Comments Source ASSERTION 2021-03-26 00:00:00 [facility] of tobacco use Current smoker [facility] Alcoholic beverage intake 2023-11-27 00:00:00 2023-11-27 00:00:00 Current drinker of alcohol (finding) [facility] Alcohol Comment 2023-11-26 00:00:00 2023-11-26 00:00:00 ocassional [facility] Tobacco use and exposure 2023-11-26 00:00:00 2023-11-26 00:00:00 Smokeless tobacco non-user [facility] History of Social function 2023-11-22 00:00:00 2023-11-22 00:00:00 [facility] Alcohol intake 2023-06-21 00:00:00 2023-06-21 00:00:00 Ex-drinker (finding) [facility] Exposure to SARS-CoV-2 (event) 2022-01-10 00:00:00 2022-01-20 14:04:00 Not sure [facility] Tobacco Comment 2021-09-15 00:00:00 2021-09-15 00:00:00 marijuana,no nicotine stopped for [facility] Sex assigned at 1995 00:00:00 1995 00:00:00 [facility] Smoking Status Start Date Stop Date Source Ex-smoker 2023-11-26 00:00:00 2023-11-26 [facility]00[facility] Medications Ordered Medication Name Filled Medication Name Start Date Stop Date Current Medication? Ordering Clinician Indication Dosage Frequency Signature (SIG) Comments Components Source pantoprazol e 40 mg EC tablet 11-18 00:00: 00 Yes [id number] 40mg Take 1 tablet by mouth in the morning. [facility] phentermine 37.5 mg tablet 11-18 00:00: 00 Yes [id number] 104 37.5mg Take 1 tablet by mouth daily with breakfast. [facility] zolpidem 5 mg tablet 11-18 00:00: 00 Yes [id number] 5mg Take 1 tablet by mouth at bedtime as needed for Insomnia. [facility] proMETHazin e (PHENERGAN) 12.5 mg in NS 50 mL IV piggyback (CNR) 11-17 15:30: 00 11-17 15:49 :00 No 12.5mg 12.5 mg, IV Piggyback, at 200 mL/hr Administer over 15 Minutes, ONCE, 1 dose, On Sun11/18/23 at 1030, [facility] morpHINE (4 mg/mL) injection 4 mg 11-17 15:30: 00 11-17 15:34 :00 No 4mg 4 mg, Slow IV Push, ONCE, 1 dose, On Sun11/18/23 at 1030, [facility] ketorolac (TORADOL) injection 30 mg 11-17 15:00: 00 11-17 14:09 :00 No 30mg 30 mg, Slow IV Push, ONCE, 1 dose, On Sun11/18/23 at 1000, [facility] famotidine (PEPCID (PF)) injection 20 mg 11-17 14:15: 00 11-17 14:09 :00 No 20mg 20 mg, Slow IV Push, ONCE, 1 dose, On Sun11/18/23 at 0915, [facility] iopamidol (ISOVUE 370-500 mL) injection 100 mL 11-17 13:30: 00 11-17 13:45 :00 No [id number] 100mL 100 mL, Intravenou s, ONCE, 1 dose, On Sun11/18/23 at 0845, Routine [facility] NaCl 0.9% (NS) IV infusion 1,000 mL 11-17 13:00: 00 11-17 15:15 :00 No 1000mL at 999 mL/hr, Intravenou s, ONCE, 1 dose, On Sun11/18/23 at 0800, [facility] proMETHazin e (PHENERGAN) 12.5 mg in NS 50 mL IV piggyback (CNR) 11-17 12:30: 00 11-17 13:33 :00 No 12.5mg 12.5 mg, IV Piggyback, at 200 mL/hr Administer over 15 Minutes, ONCE, 1 dose, On Sun11/18/23 at 0730, [facility] fentanyl PF (SUBLIMAZE (PF)) injection 100 mcg 11-17 11:15: 00 11-17 11:16 :00 No 100ug 100 mcg, Slow IV Push, ONCE, 1 dose, On 11/18/23 at 0615, Routine [facility] ondansetron (ZOFRAN (PF)) injection 8 mg 11-17 11:00: 00 11-17 11:10 :00 No 8mg 8 mg, Slow IV Push, ONCE, 1 dose, On 11/18/23 at 0600, [facility] sodium chloride (NS) injection 5 mL 11-17 10:51: 45 Yes 5mL 5 mL, Intravenou s, PRN, Starting on Sun11/18/23 at 0551, Until Discontinu ed, Routine, IV line flushing [facility] proMETHazin e 25 mg tablet 11-17 00:00: 00 Yes [id number] 25mg Take 1 tablet by mouth every 6 (six) hours as needed for Nausea and Vomiting (N/V). [facility] traMADoL 50 mg tablet 11-17 00:00: 00 Yes [id number] 50mg Take 1 tablet by mouth every 6 (six) hours as needed (pain). Indication s: acute pain [facility] zolpidem 5 mg tablet 11-17 00:00: 00 11-17 00:00 :00 No [id number] 5mg Take 1 tablet by mouth at bedtime as needed for Insomnia. [facility] KCL (KLOR-CON M20) tablet 20 mEq 11-07 19:30: 00 11-07 19:56 :00 No 20meq 20 mEq, Oral, ONCE, 1 dose, On Gabby 11/08/23 at 1430, [facility] proMETHazin e (PHENERGAN) 12.5 mg in NS 50 mL IV piggyback (CNR) 11-07 17:45: 00 11-07 18:53 :00 No 12.5mg 12.5 mg, IV Piggyback, at 200 mL/hr Administer over 15 Minutes, ONCE, 1 dose, On Gabby 11/08/23 at 1245, [facility] ondansetron (ZOFRAN (PF)) injection 4 mg 11-07 16:30: 00 11-07 16:38 :00 No 4mg 4 mg, Slow IV Push, ONCE, 1 dose, On Gabby 11/08/23 at 1130, [facility] famotidine (PEPCID (PF)) injection 20 mg 11-07 16:30: 00 11-07 16:38 :00 No 20mg 20 mg, Slow IV Push, ONCE, 1 dose, On Gabby 11/08/23 at 1130, [facility] NaCl 0.9% (NS) bolus infusion 1,000 mL 11-07 16:30: 00 11-07 19:53 :00 No 1000mL at 999 mL/hr, 1,000 mL, IV Infusion, ONCE, 1 dose, On Gabby 11/08/23 at 1130, [facility] morpHINE (4 mg/mL) injection 4 mg 11-07 15:45: 00 11-07 18:39 :00 No 4mg 4 mg, Slow IV Push, ONCE, 1 dose, On Gabby 11/08/23 at 1045, [facility] ondansetron 4 mg disintegrat ing tablet 11-07 00:00: 00 11-12 04:59 :00 Yes [id number] 4mg Take 1 tablet by mouth every 8 (eight) hours as needed for Nausea and Vomiting (N/V) for up to 4 days. [facility] zolpidem 5 mg tablet 10-18 00:00: 00 11-15 00:00 :00 No [id number] 5mg Take 1 tablet by mouth at bedtime as needed for Insomnia. [facility] ergocalcife rol, vitamin d2, (VITAMIN D2) 1,250 mcg (50,000 unit) capsule 10-15 00:00: 00 Yes [id number] 68756N Take 1 capsule by mouth weekly. [facility] phentermine 37.5 mg tablet 10-15 00:00: 00 11-18 00:00 :00 No [id number] 37.5mg Take 1 tablet by mouth daily with breakfast. [facility] ergocalcife rol, vitamin d2, (VITAMIN D2) 1,250 mcg (50,000 unit) capsule 8-14 00:00: 00 10-14 00:00 :00 No [id number] 43139D Take 1 capsule by mouth weekly. [facility] zolpidem 5 mg tablet 09-12 00:00: 00 10-15 00:00 :00 No [id number] 5mg Take 1 tablet by mouth at bedtime as needed for Insomnia. [facility] phentermine 37.5 mg tablet 09-12 00:00: 00 10-14 00:00 :00 No [id number] 37.5mg Take 1 tablet by mouth daily with breakfast. [facility] phentermine 37.5 mg tablet 08-05 00:00: 00 09-11 00:00 :00 No [id number] 37.5mg Take 1 tablet by mouth daily with breakfast. [facility] zolpidem 5 mg tablet 08-05 00:00: 00 09-11 00:00 :00 No [id number] 5mg Take 1 tablet by mouth at bedtime as needed for Insomnia. [facility] traZODone 100 mg tablet 07-24 00:00: 00 Yes [id number] 100mg Take 1 tablet by mouth at bedtime. [facility] acetaminoph en (TYLENOL) tablet 650 mg 06-20 17:30: 00 06-20 17:25 :00 No 650mg 650 mg, Oral, ONCE, 1 dose, On Gabby 06/21/23 at 1230, [facility] sulfamethox azole-trime thoprim 800-160 mg per tablet 06-20 00:00: 00 08-05 00:00 :00 No [id number] 1{tbl} Take 1 tablet by mouth every 12 (twelve) hours. [facility] phentermine 37.5 mg tablet 2023-0 4-09 00:00: 00 08-05 00:00 :00 No [id number] 37.5mg Take 1 tablet by mouth daily with breakfast. [facility] traZODone 100 mg tablet 2023-0 3-04 00:00: 00 07-24 00:00 :00 No [id number] 100mg Take 1 tablet by mouth at bedtime. [facility] phentermine 37.5 mg tablet 2023-0 2-22 00:00: 00 05-28 00:00 :00 No [id number] 37.5mg Take 1 tablet by mouth daily with breakfast. [facility] zolpidem 5 mg tablet 2023-0 2-15 00:00: 00 08-05 00:00 :00 No [id number] 5mg Take 1 tablet by mouth at bedtime as needed for Insomnia. [facility] phentermine 37.5 mg tablet 2023-0 1-12 00:00: 00 04-11 00:00 :00 No [id number] 37.5mg Take 1 tablet by mouth daily with breakfast. [facility] zolpidem 5 mg tablet 0 1-02 00:00: 00 04-05 00:00 :00 No [id number] 5mg Take 1 tablet by mouth at bedtime as needed for Insomnia. [facility] phentermine 37.5 mg tablet 2022-02 2-08 00:00: 00 03-02 00:00 :00 No [id number] 37.5mg Take 1 tablet by mouth daily with breakfast. [facility] traZODone 100 mg tablet 2022-02 2-06 00:00: 00 04-22 00:00 :00 No [id number] 100mg Take 1 tablet by mouth at bedtime. [facility] phentermine 37.5 mg tablet 2022-02 2-06 00:00: 01-26 00:00 :00 No [id number] 37.5mg Take 1 tablet by mouth daily with breakfast. [facility] zolpidem 5 mg tablet 2022-02 00:00: 00 02-19 00:00 :00 No [id number] 5mg Take 1 tablet by mouth at bedtime as needed for Insomnia. [facility] TRAZODONE 50 mg tablet 2022-02 00:00: 00 01-24 00:00 :00 No [id number] 50mg TAKE 1 TABLET BY MOUTH EVERYDAY AT BEDTIME [facility] ramelteon 8 mg tablet 2022-02 00:00: 00 01-24 00:00 :00 No [id number] 8mg Take 1 tablet by mouth at bedtime. [facility] Doxepin 6 mg Tab 2022-02 00:00: 00 01-04 00:00 :00 No [id number] 6mg Take 6 mg by mouth at bedtime. [facility] ergocalcife rol, vitamin d2, (VITAMIN D2) 1,250 mcg (50,000 unit) capsule 2022-02 00:00: 00 09-30 00:00 :00 No [id number] 29489S Take 1 capsule by mouth weekly. [facility] traZODone 50 mg tablet 2022-02 00:00: 00 01-16 00:00 :00 No [id number] 50mg Take 1 tablet by mouth at bedtime. [facility] medroxyPROG ESTERone (DEPO-PROVE RA) syringe 150 mg 2021-02 21:15: 00 01-20 20:41 :[id number] [facility] NIFEdipine ER 30 mg tablet 2021-02 00:00: 00 01-20 00:00 :00 No [id number] 30mg Take 1 tablet by mouth in the morning. [facility] NIFEdipine ER tablet 30 mg 2021-02 04:00: 00 Yes 30mg 30 mg, Oral, DAILY, First dose on 10/9/22 at 2300, Until Discontinu ed, Routine [facility] vitamin w/FA tablet 2021-02 0 00:00: 00 01-20 00:00 :00 No [id number] 1{tbl} Take 1 tablet by mouth in the morning. [facility] docusate 100 mg capsule 2021-02 0 00:00: 00 01-20 00:00 :00 No [id number] 200mg Take 2 capsules by mouth once daily as needed for Constipati on. [facility] ferrous sulfate 325 mg (65 mg iron) tablet 2021-02 00:00: 00 01-20 00:00 :00 No [id number] 325mg Take 1 tablet by mouth in the morning and 1 tablet in the evening. [facility] ibuprofen 600 mg tablet 2021-02 00:00: 00 01-20 00:00 :00 No [id number] 600mg Take 1 tablet by mouth every 6 (six) hours as needed (Pain). Take with food or milk. [facility] D5W 0.45% NaCl (1/2NS) IV infusion 1,000 mL 2021-02 19:38: 00 Yes 1000mL at 50 mL/hr, 1,000 mL, IV Infusion, CONTINUOUS , Starting on 11/27/21 at 1445, Until Discontinu ed, Routine [facility] HYDROcodone -acetaminop hen (NORCO 5) 5-325 mg tablet 1 tablet 2021-02 12:41: 25 Yes 1{tbl} 1 tablet, Oral, Q6HPRN, Starting on 11/27/21 at 0741, Until Discontinu ed, Routine, Pain (scale 7-10) [facility] ibuprofen (IBU) tablet 600 mg 2021-02 12:41: 25 Yes 600mg 600 mg, Oral, Q6HPRN, Starting on 11/27/21 at 0741, Until Discontinu ed, Routine, Pain (scale 4-6) [facility] acetaminoph en (TYLENOL) tablet 650 mg 2021-02 12:41: 25 Yes 650mg 650 mg, Oral, Q6HPRN, Starting on 11/27/21 at 0741, Until Discontinu ed, Routine, Pain (scale 1-3) [facility] diphenhydrA MINE (BENADRYL) tablet 25 mg 2021-02 12:41: 25 Yes 25mg 25 mg, Oral, Q6HPRN, Starting on 11/27/21 at 0741, Until Discontinu ed, Routine, Sleep, Itching [facility] ondansetron (ZOFRAN (PF)) injection 4 mg 2021-02 12:41: 25 Yes 4mg 4 mg, Slow IV Push, Q8HPRN, Starting on 11/27/21 at 0741, Until Discontinu ed, Routine, Nausea and Vomiting (N/V) [facility] simethicone (GAS RELIEF (SIMETHICON E)) chewable tablet 160 mg 2021-02 12:41: 25 Yes 160mg 160 mg, Oral, PC+HSPRN, Starting on 11/27/21 at 0741, Until Discontinu ed, Routine, Gas [facility] docusate (COLACE) capsule 200 mg 2021-02 12:41: 25 Yes 200mg 200 mg, Oral, QDAILYPRN, Starting on 11/27/21 at 0741, Until Discontinu ed, Routine, Constipati on [facility] magnesium hydroxide (MILK OF MAGNESIA) 400 mg/5 mL suspension 30 mL 2021-02 12:41: 25 Yes 30mL 30 mL, Oral, QDAILYPRN, Starting on 11/27/21 at 0741, Until Discontinu ed, Routine, Constipati on [facility] benzocaine- menthol (DERMOPLAST ) 20-0.5 % topical spray 2021-02 12:41: 25 Yes Topical, PRN, Starting on 11/27/21 at 0741, Until Discontinu ed, Routine, Perineum discomfort [facility] calcium gluconate 100 mg/mL (10%) injection 1,000 mg 2021-02 12:40: 21 Yes 1000mg 1,000 mg, Slow IV Push, PRN - SEE INSTRUCTIO NS, Starting on 11/27/21 at 0740, Until Discontinu ed, Routine, magnesium toxicity [facility] magnesium sulfate 4 mEq/mL (50 %) injection 32.48 mEq 2021-02 12:40: 21 Yes 4g 32.48 mEq (4 g), Slow IV Push, PRN - SEE INSTRUCTIO NS, Starting on 11/27/21 at 0740, Until Discontinu ed, Routine, For seizure activity (patient not on magnesium sulfate) [facility] magnesium sulfate 4 mEq/mL (50 %) injection 16.24 mEq 2021-02 12:40: 21 Yes 2g 16.24 mEq (2 g), Slow IV Push, PRN - SEE INSTRUCTIO NS, 2 doses, Starting on 11/27/21 at 0740, Until Discontinu ed, Routine, For seizure activity (patient already on magnesium sulfate) [facility] labetaloL (NORMODYNE) injection 20 mg 2021-02 [...] Hypertensi ve Emergency in [Order 4 End] [facility] oxytocin (PITOCIN) 30 units in NS 500 mL IV infusion 2021-02 0 02:10: 24 11-27 12:40 :54 No 2mU/min at 2-40 mL/hr, IV Infusion, TITRATE, Starting on 11/26/21 at 2110, Until [place] 11/27/21 at 0740, Routine [facility] penicillin g pot in dextrose [...] s
Durat ion of therapy: 72 hours [facility] fentaNYL-ro pivacaine 2 mcg/mL-0.1 % (PF) in NS 200 mL epidural infusion RTU 2021-02 008 20:46: 00 11-27 13:52 :31 No Epidural, ONCE INTRA PROCEDURE, Starting on 11/26/21 at 1546, Until 11/27/21 at 0852, Routine, Intra-op [facility] lidocaine-e pinephrine (XYLOCAINE W/EPINEPHRI NE) 1.5 %-1:200,000 injection 2021-02 0 20:43: 00 Yes Epidural, ONCE INTRA PROCEDURE, Starting on 11/26/21 at 1543, Until Discontinu ed, Routine, Intra-op [facility] penicillin g potassium 5 Million Units in NaCl 0.9% (NS) 100 mL MINI-BAG 2021-02 18:15: 00 11-26 19:13 :00 No 510 5 Million Units, IV Piggyback, ONCE, 1 dose, On 11/26/21 at 1315, Administer over 60 Minutes, 100 mL
Reas on for Anti-Infec tive: Empiric Non-Surgic al Prophylaxi s
Durat ion of therapy: 72 hours [facility] NaCl 0.9% (NS) IV infusion 1,000 mL 2021-02 18:00: 00 11-27 12:40 :54 No 1000mL at 50 mL/hr, IV Infusion, CONTINUOUS , Starting on 11/26/21 at 1300, Until 11/27/21 at 0740, Routine [facility] oxytocin (PITOCIN) 30 units in NS 500 mL IV infusion 2021-02 14:31: 25 11-27 02:11 :24 No 2mU/min at 2-40 mL/hr, IV Infusion, TITRATE, Starting on 11/26/21 at 0931, Until 11/26/21 at 2111, Routine [facility] FENTanyl PF (SUBLIMAZE (PF)) injection 100 mcg 2021-02 13:50: 58 11-27 12:40 :54 No 100ug 100 mcg, Slow IV Push, Q1HPRN, Starting on 11/26/21 at 0850, Until 11/27/21 at 0740, Routine, Pain (scale 4-6), Pain (scale 7-10) [facility] misoprostol (CYTOTEC) quarter-tab let 25 mcg 2021-02 13:45: 00 11-26 13:22 :00 No 25ug 25 mcg, Vaginal, ONCE, 1 dose, On 11/26/21 at 0845, Routine [facility] butalbital- acetaminoph en-caff (ESGIC) 50-325-40 mg tablet 1 tablet 2021-02 008 09:45: 00 11-26 08:57 :00 No 1{tbl} 1 tablet, Oral, ONCE NOW, 1 dose, On 11/26/21 at 0445, Routine [facility] magnesium sulfate in water for injection 20 gram/500 mL (4 %) IV infusion 2021-02 09:00: 00 Yes 2g/h 2 g/hr (50 mL/hr), IV Infusion, CONTINUOUS , Starting on 11/26/21 at 0400, Until Discontinu ed, Routine [facility] D5W 0.45% NaCl (1/2NS) IV infusion 1,000 mL 2021-02 09:00: 00 11-27 12:40 :54 No 1000mL at 75 mL/hr, 1,000 mL, IV Infusion, CONTINUOUS , Starting on 11/26/21 at 0400, Until 11/27/21 at 0740, Routine [facility] promethazin e 6.25 mg/5 mL solution 11-09 00:00: 00 11-28 00:00 :00 No [id number] 12.5mg Take 10 mL by mouth every 4 (four) hours as needed for Nausea and Vomiting (N/V). [facility] promethazin e 6.25 mg/5 mL solution 10-18 00:00: 00 11-09 00:00 :00 No [id number] 12.5mg Take 10 mL by mouth every 4 (four) hours as needed for Nausea and Vomiting (N/V). [facility] promethazin e 6.25 mg/5 mL solution 8-11 00:00: 00 10-18 00:00 :00 No [id number] 12.5mg Take 10 mL by mouth every 4 (four) hours as needed for Nausea and Vomiting (N/V). [facility] promethazin e 6.25 mg/5 mL solution 6-23 00:00: 00 09-15 00:00 :00 No [id number] 12.5mg Take 10 mL by mouth every 4 (four) hours as needed for Nausea and Vomiting (N/V). [facility] proMETHazin e 25 mg tablet 07-17 00:00: 00 09-15 00:00 :00 No [id number] 25mg Take 1 tablet by mouth every 6 (six) hours as needed for Nausea and Vomiting (N/V). [facility] promethazin e 6.25 mg/5 mL solution 06-24 00:00: 00 06-29 00:00 :00 No [id number] 12.5mg Take 10 mL by mouth every 4 (four) hours as needed for Nausea and Vomiting (N/V). [facility] vit 33-iron-fol ic-dha (SELECT-OB + DHA) 29 mg iron-1 mg -250 mg combo pack 06-23 00:00: 00 07-17 00:00 :00 No [id number] 1{packe t} Take 1 Packet by mouth daily. [facility] proMETHazin e 25 mg suppository 06-22 00:00: 00 09-15 00:00 :00 No [id number] 25mg Insert 1 Suppositor y into rectum every 4 (four) hours as needed for Nausea and Vomiting (N/V). [facility] Immunizations Ordered Immunization Name Filled Immunization Name Date Status Comments Source HPV9 2022-12-25 00:00:00 Completed [facility] HPV9 2022-12-25 00:00:00 Completed [facility] HPV9 2022-12-25 00:00:00 Completed [facility] HPV9 2022-12-25 00:00:00 Completed [facility] HPV9 2022-12-25 00:00:00 Completed [facility] HPV9 2022-12-25 00:00:00 Completed [facility] HPV9 2022-12-25 00:00:00 Completed [facility] TDAP 2021-09-29 00:00:00 Completed [facility] TDAP 2021-09-29 00:00:00 Completed [facility] TDAP 2021-09-29 00:00:00 Completed [facility] TDAP 2021-09-29 00:00:00 Completed [facility] TDAP 2021-09-29 00:00:00 Completed [facility] TDAP 2021-09-29 00:00:00 Completed [facility] TDAP 2021-09-29 00:00:00 Completed [facility] TDAP 2021-09-29 00:00:00 Completed [facility] TDAP 2021-09-29 00:00:00 Completed [facility] TDAP 2021-09-29 00:00:00 Completed [facility] TDAP 2021-09-29 00:00:00 Completed [facility] TDAP 2021-09-29 00:00:00 Completed [facility] TDAP 2021-09-29 00:00:00 Completed [facility] TDAP 2021-09-29 00:00:00 Completed [facility] TDAP 2021-09-29 00:00:00 Completed [facility] TDAP 2021-09-29 00:00:00 Completed [facility] TDAP 2021-09-29 00:00:00 Completed [facility] TDAP 2021-09-29 00:00:00 Completed [facility] TDAP 2021-09-29 00:00:00 Completed [facility] TDAP 2021-09-29 00:00:00 Completed [facility] TDAP 2021-09-29 00:00:00 Completed [facility] TDAP 2021-09-29 00:00:00 Completed [facility] TDAP 2021-09-29 00:00:00 Completed [facility] TDAP 2021-09-29 00:00:00 Completed [facility] TDAP 2009-10-06 00:00:00 Completed HEPATITIS A 2009-10-06 00:00:00 Completed HPV 2009-10-06 00:00:00 Completed Meningococcal Polysaccharide (groups A, C, Y and W-135) conjugate vaccine (MCV4P) 2009-10-06 00:00:00 Completed TDAP 2009-10-06 00:00:00 Completed HEPATITIS A 2009-10-06 00:00:00 Completed HPV 2009-10-06 00:00:00 Completed Meningococcal Polysaccharide (groups A, C, Y and W-135) conjugate vaccine (MCV4P) 2009-10-06 00:00:00 Completed TDAP 2009-10-06 00:00:00 Completed HEPATITIS A 2009-10-06 00:00:00 Completed HPV 2009-10-06 00:00:00 Completed Meningococcal Polysaccharide (groups A, C, Y and W-135) conjugate vaccine (MCV4P) 2009-10-06 00:00:00 Completed TDAP 2009-10-06 00:00:00 Completed HEPATITIS A 2009-10-06 00:00:00 Completed HPV 2009-10-06 00:00:00 Completed Meningococcal Polysaccharide (groups A, C, Y and W-135) conjugate vaccine (MCV4P) 2009-10-06 00:00:00 Completed TDAP 2009-10-06 00:00:00 Completed HEPATITIS A 2009-10-06 00:00:00 Completed HPV 2009-10-06 00:00:00 Completed Meningococcal Polysaccharide (groups A, C, Y and W-135) conjugate vaccine (MCV4P) 2009-10-06 00:00:00 Completed TDAP 2009-10-06 00:00:00 Completed HEPATITIS A 2009-10-06 00:00:00 Completed HPV 2009-10-06 00:00:00 Completed Meningococcal Polysaccharide (groups A, C, Y and W-135) conjugate vaccine (MCV4P) 2009-10-06 00:00:00 Completed TDAP 2009-10-06 00:00:00 Completed HEPATITIS A 2009-10-06 00:00:00 Completed HPV 2009-10-06 00:00:00 Completed Meningococcal Polysaccharide (groups A, C, Y and W-135) conjugate vaccine (MCV4P) 2009-10-06 00:00:00 Completed DTaP, Unspecified Formulation 2000-10-16 00:00:00 Completed MMR 2000-10-16 00:00:00 Completed IPV 2000-10-16 00:00:00 Completed DTaP, Unspecified Formulation 2000-10-16 00:00:00 Completed MMR 2000-10-16 00:00:00 Completed IPV 2000-10-16 00:00:00 Completed DTaP, Unspecified Formulation 2000-10-16 00:00:00 Completed MMR 2000-10-16 00:00:00 Completed IPV 2000-10-16 00:00:00 Completed DTaP, Unspecified Formulation 2000-10-16 00:00:00 Completed MMR 2000-10-16 00:00:00 Completed IPV 2000-10-16 00:00:00 Completed DTaP, Unspecified Formulation 2000-10-16 00:00:00 Completed MMR 2000-10-16 00:00:00 Completed IPV 2000-10-16 00:00:00 Completed DTaP, Unspecified Formulation 2000-10-16 00:00:00 Completed MMR 2000-10-16 00:00:00 Completed IPV 2000-10-16 00:00:00 Completed DTaP, Unspecified Formulation 2000-10-16 00:00:00 Completed MMR 2000-10-16 00:00:00 Completed IPV 2000-10-16 00:00:00 Completed DTaP, Unspecified Formulation 1999-10-18 00:00:00 Completed Hep B, Adol or Pedi Dosage 1999-10-18 00:00:00 Completed HIB 4 Dose Schedule 1999-10-18 00:00:00 Completed IPV 1999-10-18 00:00:00 Completed DTaP, Unspecified Formulation 1999-10-18 00:00:00 Completed Hep B, Adol or Pedi Dosage 1999-10-18 00:00:00 Completed HIB 4 Dose Schedule 1999-10-18 00:00:00 Completed IPV 1999-10-18 00:00:00 Completed DTaP, Unspecified Formulation 1999-10-18 00:00:00 Completed Hep B, Adol or Pedi Dosage 1999-10-18 00:00:00 Completed HIB 4 Dose Schedule 1999-10-18 00:00:00 Completed IPV 1999-10-18 00:00:00 Completed DTaP, Unspecified Formulation 1999-10-18 00:00:00 Completed Hep B, Adol or Pedi Dosage 1999-10-18 00:00:00 Completed HIB 4 Dose Schedule 1999-10-18 00:00:00 Completed IPV 1999-10-18 00:00:00 Completed DTaP, Unspecified Formulation 1999-10-18 00:00:00 Completed Hep B, Adol or Pedi Dosage 1999-10-18 00:00:00 Completed HIB 4 Dose Schedule 1999-10-18 00:00:00 Completed IPV 1999-10-18 00:00:00 Completed DTaP, Unspecified Formulation 1999-10-18 00:00:00 Completed Hep B, Adol or Pedi Dosage 1999-10-18 00:00:00 Completed HIB 4 Dose Schedule 1999-10-18 00:00:00 Completed IPV 1999-10-18 00:00:00 Completed DTaP, Unspecified Formulation 1999-10-18 00:00:00 Completed Hep B, Adol or Pedi Dosage 1999-10-18 00:00:00 Completed HIB 4 Dose Schedule 1999-10-18 00:00:00 Completed IPV 1999-10-18 00:00:00 Completed DTaP, Unspecified Formulation 1999-01-17 00:00:00 Completed Hep B, Adol or Pedi Dosage 1999-01-17 00:00:00 Completed HIB 4 Dose Schedule 1999-01-17 00:00:00 Completed Poliovirus, Live, Oral, Trivalent 1999-01-17 00:00:00 Completed DTaP, Unspecified Formulation 1999-01-17 00:00:00 Completed Hep B, Adol or Pedi Dosage 1999-01-17 00:00:00 Completed HIB 4 Dose Schedule 1999-01-17 00:00:00 Completed Poliovirus, Live, Oral, Trivalent 1999-01-17 00:00:00 Completed DTaP, Unspecified Formulation 1999-01-17 00:00:00 Completed Hep B, Adol or Pedi Dosage 1999-01-17 00:00:00 Completed HIB 4 Dose Schedule 1999-01-17 00:00:00 Completed Poliovirus, Live, Oral, Trivalent 1999-01-17 00:00:00 Completed DTaP, Unspecified Formulation 1999-01-17 00:00:00 Completed Hep B, Adol or Pedi Dosage 1999-01-17 00:00:00 Completed HIB 4 Dose Schedule 1999-01-17 00:00:00 Completed Poliovirus, Live, Oral, Trivalent 1999-01-17 00:00:00 Completed DTaP, Unspecified Formulation 1999-01-17 00:00:00 Completed Hep B, Adol or Pedi Dosage 1999-01-17 00:00:00 Completed HIB 4 Dose Schedule 1999-01-17 00:00:00 Completed Poliovirus, Live, Oral, Trivalent 1999-01-17 00:00:00 Completed DTaP, Unspecified Formulation 1999-01-17 00:00:00 Completed Hep B, Adol or Pedi Dosage 1999-01-17 00:00:00 Completed HIB 4 Dose Schedule 1999-01-17 00:00:00 Completed Poliovirus, Live, Oral, Trivalent 1999-01-17 00:00:00 Completed DTaP, Unspecified Formulation 1999-01-17 00:00:00 Completed Hep B, Adol or Pedi Dosage 1999-01-17 00:00:00 Completed HIB 4 Dose Schedule 1999-01-17 00:00:00 Completed Poliovirus, Live, Oral, Trivalent 1999-01-17 00:00:00 Completed DTaP, Unspecified Formulation 1997-11-23 00:00:00 Completed Hep B, Adol or Pedi Dosage 1997-11-23 00:00:00 Completed Haemophilus influenzae type b vaccine, conjugate unspecified formulation 1997-11-23 00:00:00 Completed MMR 1997-11-23 00:00:00 Completed Poliovirus, Live, Oral, Trivalent 1997-11-23 00:00:00 Completed DTaP, Unspecified Formulation 1997-11-23 00:00:00 Completed Hep B, Adol or Pedi Dosage 1997-11-23 00:00:00 Completed Haemophilus influenzae type b vaccine, conjugate unspecified formulation 1997-11-23 00:00:00 Completed MMR 1997-11-23 00:00:00 Completed Poliovirus, Live, Oral, Trivalent 1997-11-23 00:00:00 Completed DTaP, Unspecified Formulation 1997-11-23 00:00:00 Completed Hep B, Adol or Pedi Dosage 1997-11-23 00:00:00 Completed Haemophilus influenzae type b vaccine, conjugate unspecified formulation 1997-11-23 00:00:00 Completed MMR 1997-11-23 00:00:00 Completed Poliovirus, Live, Oral, Trivalent 1997-11-23 00:00:00 Completed DTaP, Unspecified Formulation 1997-11-23 00:00:00 Completed Hep B, Adol or Pedi Dosage 1997-11-23 00:00:00 Completed Haemophilus influenzae type b vaccine, conjugate unspecified formulation 1997-11-23 00:00:00 Completed MMR 1997-11-23 00:00:00 Completed Poliovirus, Live, Oral, Trivalent 1997-11-23 00:00:00 Completed DTaP, Unspecified Formulation 1997-11-23 00:00:00 Completed Hep B, Adol or Pedi Dosage 1997-11-23 00:00:00 Completed Haemophilus influenzae type b vaccine, conjugate unspecified formulation 1997-11-23 00:00:00 Completed MMR 1997-11-23 00:00:00 Completed Poliovirus, Live, Oral, Trivalent 1997-11-23 00:00:00 Completed DTaP, Unspecified Formulation 1997-11-23 00:00:00 Completed Hep B, Adol or Pedi Dosage 1997-11-23 00:00:00 Completed Haemophilus influenzae type b vaccine, conjugate unspecified formulation 1997-11-23 00:00:00 Completed MMR 1997-11-23 00:00:00 Completed Poliovirus, Live, Oral, Trivalent 1997-11-23 00:00:00 Completed DTaP, Unspecified Formulation 1997-11-23 00:00:00 Completed Hep B, Adol or Pedi Dosage 1997-11-23 00:00:00 Completed Haemophilus influenzae type b vaccine, conjugate unspecified formulation 1997-11-23 00:00:00 Completed MMR 1997-11-23 00:00:00 Completed Poliovirus, Live, Oral, Trivalent 1997-11-23 00:00:00 Completed TDAP Unknown Completed [facility] TDAP Unknown Completed [facility] TDAP Unknown Completed [facility] TDAP Unknown Completed [facility] TDAP Unknown Completed [facility] TDAP Unknown Completed [facility] DTaP, Unspecified Formulation Unknown Completed [facility] HEPATITIS A Unknown Completed [facility] Hep B, Adol or Pedi Dosage Unknown Completed [facility] HIB 4 Dose Schedule Unknown Completed [facility] Haemophilus influenzae type b vaccine, conjugate unspecified formulation Unknown Completed [facility] HPV Unknown Completed [facility] Meningococcal Polysaccharide (groups A, C, Y and W-135) conjugate vaccine (MCV4P) Unknown Completed [facility] MMR Unknown Completed [facility] IPV Unknown Completed [facility] Poliovirus, Live, Oral, Trivalent Unknown Completed [facility] HPV9 Unknown Completed [facility] HEPATITIS A Unknown Completed [facility] Haemophilus influenzae type b vaccine, conjugate unspecified formulation Unknown Completed [facility] HPV Unknown Completed [facility] Meningococcal Polysaccharide (groups A, C, Y and W-135) conjugate vaccine (MCV4P) Unknown Completed [facility] HPV9 Unknown Completed [facility] TDAP Unknown Completed [facility] DTaP, Unspecified Formulation Unknown Completed [facility] Hep B, Adol or Pedi Dosage Unknown Completed [facility] HIB 4 Dose Schedule Unknown Completed [facility] MMR Unknown Completed [facility] IPV Unknown Completed [facility] Poliovirus, Live, Oral, Trivalent Unknown Completed [facility] TDAP Unknown Completed [facility] DTaP, Unspecified Formulation Unknown Completed [facility] HEPATITIS A Unknown Completed [facility] Hep B, Adol or Pedi Dosage Unknown Completed [facility] HIB 4 Dose Schedule Unknown Completed [facility] Haemophilus influenzae type b vaccine, conjugate unspecified formulation Unknown Completed [facility] HPV Unknown Completed [facility] Meningococcal Polysaccharide (groups A, C, Y and W-135) conjugate vaccine (MCV4P) Unknown Completed [facility] MMR Unknown Completed [facility] IPV Unknown Completed [facility] Poliovirus, Live, Oral, Trivalent Unknown Completed [facility] HPV9 Unknown Completed [facility] TDAP Unknown Completed [facility] DTaP, Unspecified Formulation Unknown Completed [facility] HEPATITIS A Unknown Completed [facility] Hep B, Adol or Pedi Dosage Unknown Completed [facility] HIB 4 Dose Schedule Unknown Completed [facility] Haemophilus influenzae type b vaccine, conjugate unspecified formulation Unknown Completed [facility] HPV Unknown Completed [facility] Meningococcal Polysaccharide (groups A, C, Y and W-135) conjugate vaccine (MCV4P) Unknown Completed [facility] MMR Unknown Completed [facility] IPV Unknown Completed [facility] Poliovirus, Live, Oral, Trivalent Unknown Completed [facility] HPV9 Unknown Completed [facility] TDAP Unknown Completed [facility] DTaP, Unspecified Formulation Unknown Completed [facility] HEPATITIS A Unknown Completed [facility] Hep B, Adol or Pedi Dosage Unknown Completed [facility] HIB 4 Dose Schedule Unknown Completed [facility] Haemophilus influenzae type b vaccine, conjugate unspecified formulation Unknown Completed [facility] HPV Unknown Completed [facility] Meningococcal Polysaccharide (groups A, C, Y and W-135) conjugate vaccine (MCV4P) Unknown Completed [facility] MMR Unknown Completed [facility] IPV Unknown Completed [facility] Poliovirus, Live, Oral, Trivalent Unknown Completed [facility] HPV9 Unknown Completed [facility] TDAP Unknown Completed [facility] DTaP, Unspecified Formulation Unknown Completed [facility] HEPATITIS A Unknown Completed [facility] Hep B, Adol or Pedi Dosage Unknown Completed [facility] HIB 4 Dose Schedule Unknown Completed [facility] Haemophilus influenzae type b vaccine, conjugate unspecified formulation Unknown Completed [facility] HPV Unknown Completed [facility] Meningococcal Polysaccharide (groups A, C, Y and W-135) conjugate vaccine (MCV4P) Unknown Completed [facility] MMR Unknown Completed [facility] IPV Unknown Completed [facility] Poliovirus, Live, Oral, Trivalent Unknown Completed [facility] HPV9 Unknown Completed [facility] HEPATITIS A Unknown Completed [facility] Haemophilus influenzae type b vaccine, conjugate unspecified formulation Unknown Completed [facility] HPV Unknown Completed [facility] Meningococcal Polysaccharide (groups A, C, Y and W-135) conjugate vaccine (MCV4P) Unknown Completed [facility] HPV9 Unknown Completed [facility] TDAP Unknown Completed [facility] DTaP, Unspecified Formulation Unknown Completed [facility] Hep B, Adol or Pedi Dosage Unknown Completed [facility] HIB 4 Dose Schedule Unknown Completed [facility] MMR Unknown Completed [facility] IPV Unknown Completed [facility] Poliovirus, Live, Oral, Trivalent Unknown Completed [facility] TDAP Unknown Completed [facility] DTaP, Unspecified Formulation Unknown Completed [facility] HEPATITIS A Unknown Completed [facility] Hep B, Adol or Pedi Dosage Unknown Completed [facility] HIB 4 Dose Schedule Unknown Completed [facility] Haemophilus influenzae type b vaccine, conjugate unspecified formulation Unknown Completed [facility] HPV Unknown Completed [facility] Meningococcal Polysaccharide (groups A, C, Y and W-135) conjugate vaccine (MCV4P) Unknown Completed [facility] MMR Unknown Completed [facility] IPV Unknown Completed [facility] Poliovirus, Live, Oral, Trivalent Unknown Completed [facility] HPV9 Unknown Completed [facility] TDAP Unknown Completed [facility] DTaP, Unspecified Formulation Unknown Completed [facility] HEPATITIS A Unknown Completed [facility] Hep B, Adol or Pedi Dosage Unknown Completed [facility] HIB 4 Dose Schedule Unknown Completed [facility] Haemophilus influenzae type b vaccine, conjugate unspecified formulation Unknown Completed [facility] HPV Unknown Completed [facility] Meningococcal Polysaccharide (groups A, C, Y and W-135) conjugate vaccine (MCV4P) Unknown Completed [facility] MMR Unknown Completed [facility] IPV Unknown Completed [facility] Poliovirus, Live, Oral, Trivalent Unknown Completed [facility] HPV9 Unknown Completed [facility] TDAP Unknown Completed [facility] DTaP, Unspecified Formulation Unknown Completed [facility] HEPATITIS A Unknown Completed [facility] Hep B, Adol or Pedi Dosage Unknown Completed [facility] HIB 4 Dose Schedule Unknown Completed [facility] Haemophilus influenzae type b vaccine, conjugate unspecified formulation Unknown Completed [facility] HPV Unknown Completed [facility] Meningococcal Polysaccharide (groups A, C, Y and W-135) conjugate vaccine (MCV4P) Unknown Completed [facility] MMR Unknown Completed [facility] IPV Unknown Completed [facility] Poliovirus, Live, Oral, Trivalent Unknown Completed [facility] HPV9 Unknown Completed [facility] TDAP Unknown Completed [facility] DTaP, Unspecified Formulation Unknown Completed [facility] HEPATITIS A Unknown Completed [facility] Hep B, Adol or Pedi Dosage Unknown Completed [facility] HIB 4 Dose Schedule Unknown Completed [facility] Haemophilus influenzae type b vaccine, conjugate unspecified formulation Unknown Completed [facility] HPV Unknown Completed [facility] Meningococcal Polysaccharide (groups A, C, Y and W-135) conjugate vaccine (MCV4P) Unknown Completed [facility] MMR Unknown Completed [facility] IPV Unknown Completed [facility] Poliovirus, Live, Oral, Trivalent Unknown Completed [facility] HPV9 Unknown Completed [facility] HEPATITIS A Unknown Completed [facility] Haemophilus influenzae type b vaccine, conjugate unspecified formulation Unknown Completed [facility] HPV Unknown Completed [facility] Meningococcal Polysaccharide (groups A, C, Y and W-135) conjugate vaccine (MCV4P) Unknown Completed [facility] HPV9 Unknown Completed [facility] TDAP Unknown Completed [facility] DTaP, Unspecified Formulation Unknown Completed [facility] Hep B, Adol or Pedi Dosage Unknown Completed [facility] HIB 4 Dose Schedule Unknown Completed [facility] MMR Unknown Completed [facility] IPV Unknown Completed [facility] Poliovirus, Live, Oral, Trivalent Unknown Completed [facility] TDAP Unknown Completed [facility] DTaP, Unspecified Formulation Unknown Completed [facility] HEPATITIS A Unknown Completed [facility] Hep B, Adol or Pedi Dosage Unknown Completed [facility] HIB 4 Dose Schedule Unknown Completed [facility] Haemophilus influenzae type b vaccine, conjugate unspecified formulation Unknown Completed [facility] HPV Unknown Completed [facility] Meningococcal Polysaccharide (groups A, C, Y and W-135) conjugate vaccine (MCV4P) Unknown Completed [facility] MMR Unknown Completed [facility] IPV Unknown Completed [facility] Poliovirus, Live, Oral, Trivalent Unknown Completed [facility] HPV9 Unknown Completed [facility] TDAP Unknown Completed [facility] DTaP, Unspecified Formulation Unknown Completed [facility] HEPATITIS A Unknown Completed [facility] Hep B, Adol or Pedi Dosage Unknown Completed [facility] HIB 4 Dose Schedule Unknown Completed [facility] Haemophilus influenzae type b vaccine, conjugate unspecified formulation Unknown Completed [facility] HPV Unknown Completed [facility] Meningococcal Polysaccharide (groups A, C, Y and W-135) conjugate vaccine (MCV4P) Unknown Completed [facility] MMR Unknown Completed [facility] IPV Unknown Completed [facility] Poliovirus, Live, Oral, Trivalent Unknown Completed [facility] HPV9 Unknown Completed [facility] TDAP Unknown Completed [facility] DTaP, Unspecified Formulation Unknown Completed [facility] HEPATITIS A Unknown Completed [facility] Hep B, Adol or Pedi Dosage Unknown Completed [facility] HIB 4 Dose Schedule Unknown Completed [facility] Haemophilus influenzae type b vaccine, conjugate unspecified formulation Unknown Completed [facility] HPV Unknown Completed [facility] Meningococcal Polysaccharide (groups A, C, Y and W-135) conjugate vaccine (MCV4P) Unknown Completed [facility] MMR Unknown Completed [facility] IPV Unknown Completed [facility] Poliovirus, Live, Oral, Trivalent Unknown Completed [facility] HPV9 Unknown Completed [facility] TDAP Unknown Completed [facility] DTaP, Unspecified Formulation Unknown Completed [facility] HEPATITIS A Unknown Completed [facility] Hep B, Adol or Pedi Dosage Unknown Completed [facility] HIB 4 Dose Schedule Unknown Completed [facility] Haemophilus influenzae type b vaccine, conjugate unspecified formulation Unknown Completed [facility] HPV Unknown Completed [facility] Meningococcal Polysaccharide (groups A, C, Y and W-135) conjugate vaccine (MCV4P) Unknown Completed [facility] MMR Unknown Completed [facility] IPV Unknown Completed [facility] Poliovirus, Live, Oral, Trivalent Unknown Completed [facility] HPV9 Unknown Completed [facility] HEPATITIS A Unknown Completed [facility] Haemophilus influenzae type b vaccine, conjugate unspecified formulation Unknown Completed [facility] HPV Unknown Completed [facility] Meningococcal Polysaccharide (groups A, C, Y and W-135) conjugate vaccine (MCV4P) Unknown Completed [facility] HPV9 Unknown Completed [facility] TDAP Unknown Completed [facility] DTaP, Unspecified Formulation Unknown Completed [facility] HEPATITIS A Unknown Completed [facility] Hep B, Adol or Pedi Dosage Unknown Completed [facility] HIB 4 Dose Schedule Unknown Completed [facility] Haemophilus influenzae type b vaccine, conjugate unspecified formulation Unknown Completed [facility] HPV Unknown Completed [facility] Meningococcal Polysaccharide (groups A, C, Y and W-135) conjugate vaccine (MCV4P) Unknown Completed [facility] MMR Unknown Completed [facility] IPV Unknown Completed [facility] Poliovirus, Live, Oral, Trivalent Unknown Completed [facility] HPV9 Unknown Completed [facility] TDAP Unknown Completed [facility] DTaP, Unspecified Formulation Unknown Completed [facility] HEPATITIS A Unknown Completed [facility] Hep B, Adol or Pedi Dosage Unknown Completed [facility] HIB 4 Dose Schedule Unknown Completed [facility] Haemophilus influenzae type b vaccine, conjugate unspecified formulation Unknown Completed [facility] HPV Unknown Completed [facility] Meningococcal Polysaccharide (groups A, C, Y and W-135) conjugate vaccine (MCV4P) Unknown Completed [facility] MMR Unknown Completed [facility] IPV Unknown Completed [facility] Poliovirus, Live, Oral, Trivalent Unknown Completed [facility] HPV9 Unknown Completed [facility] TDAP Unknown Completed [facility] DTaP, Unspecified Formulation Unknown Completed [facility] HEPATITIS A Unknown Completed [facility] Hep B, Adol or Pedi Dosage Unknown Completed [facility] HIB 4 Dose Schedule Unknown Completed [facility] Haemophilus influenzae type b vaccine, conjugate unspecified formulation Unknown Completed [facility] HPV Unknown Completed [facility] Meningococcal Polysaccharide (groups A, C, Y and W-135) conjugate vaccine (MCV4P) Unknown Completed [facility] MMR Unknown Completed [facility] IPV Unknown Completed [facility] Poliovirus, Live, Oral, Trivalent Unknown Completed [facility] HPV9 Unknown Completed [facility] TDAP Unknown Completed [facility] DTaP, Unspecified Formulation Unknown Completed [facility] HEPATITIS A Unknown Completed [facility] Hep B, Adol or Pedi Dosage Unknown Completed [facility] HIB 4 Dose Schedule Unknown Completed [facility] Haemophilus influenzae type b vaccine, conjugate unspecified formulation Unknown Completed [facility] HPV Unknown Completed [facility] Meningococcal Polysaccharide (groups A, C, Y and W-135) conjugate vaccine (MCV4P) Unknown Completed [facility] MMR Unknown Completed [facility] IPV Unknown Completed [facility] Poliovirus, Live, Oral, Trivalent Unknown Completed [facility] HPV9 Unknown Completed [facility] TDAP Unknown Completed [facility] DTaP, Unspecified Formulation Unknown Completed [facility] Hep B, Adol or Pedi Dosage Unknown Completed [facility] HIB 4 Dose Schedule Unknown Completed [facility] MMR Unknown Completed [facility] IPV Unknown Completed [facility] Poliovirus, Live, Oral, Trivalent Unknown Completed [facility] TDAP Unknown Completed [facility] DTaP, Unspecified Formulation Unknown Completed [facility] HEPATITIS A Unknown Completed [facility] Hep B, Adol or Pedi Dosage Unknown Completed [facility] HIB 4 Dose Schedule Unknown Completed [facility] Haemophilus influenzae type b vaccine, conjugate unspecified formulation Unknown Completed [facility] HPV Unknown Completed [facility] Meningococcal Polysaccharide (groups A, C, Y and W-135) conjugate vaccine (MCV4P) Unknown Completed [facility] MMR Unknown Completed [facility] IPV Unknown Completed [facility] Poliovirus, Live, Oral, Trivalent Unknown Completed [facility] HPV9 Unknown Completed [facility] TDAP Unknown Completed [facility] DTaP, Unspecified Formulation Unknown Completed [facility] HEPATITIS A Unknown Completed [facility] Hep B, Adol or Pedi Dosage Unknown Completed [facility] HIB 4 Dose Schedule Unknown Completed [facility] Haemophilus influenzae type b vaccine, conjugate unspecified formulation Unknown Completed [facility] HPV Unknown Completed [facility] Meningococcal Polysaccharide (groups A, C, Y and W-135) conjugate vaccine (MCV4P) Unknown Completed [facility] MMR Unknown Completed [facility] IPV Unknown Completed [facility] Poliovirus, Live, Oral, Trivalent Unknown Completed [facility] HPV9 Unknown Completed [facility] TDAP Unknown Completed [facility] DTaP, Unspecified Formulation Unknown Completed [facility] HEPATITIS A Unknown Completed [facility] Hep B, Adol or Pedi Dosage Unknown Completed [facility] HIB 4 Dose Schedule Unknown Completed [facility] Haemophilus influenzae type b vaccine, conjugate unspecified formulation Unknown Completed [facility] HPV Unknown Completed [facility] Meningococcal Polysaccharide (groups A, C, Y and W-135) conjugate vaccine (MCV4P) Unknown Completed [facility] MMR Unknown Completed [facility] IPV Unknown Completed [facility] Poliovirus, Live, Oral, Trivalent Unknown Completed [facility] HPV9 Unknown Completed [facility] TDAP Unknown Completed [facility] DTaP, Unspecified Formulation Unknown Completed [facility] HEPATITIS A Unknown Completed [facility] Hep B, Adol or Pedi Dosage Unknown Completed [facility] HIB 4 Dose Schedule Unknown Completed [facility] Haemophilus influenzae type b vaccine, conjugate unspecified formulation Unknown Completed [facility] HPV Unknown Completed [facility] Meningococcal Polysaccharide (groups A, C, Y and W-135) conjugate vaccine (MCV4P) Unknown Completed [facility] MMR Unknown Completed [facility] IPV Unknown Completed [facility] Poliovirus, Live, Oral, Trivalent Unknown Completed [facility] HPV9 Unknown Completed [facility] TDAP Unknown Completed [facility] DTaP, Unspecified Formulation Unknown Completed [facility] HEPATITIS A Unknown Completed [facility] Hep B, Adol or Pedi Dosage Unknown Completed [facility] HIB 4 Dose Schedule Unknown Completed [facility] Haemophilus influenzae type b vaccine, conjugate unspecified formulation Unknown Completed [facility] HPV Unknown Completed [facility] Meningococcal Polysaccharide (groups A, C, Y and W-135) conjugate vaccine (MCV4P) Unknown Completed [facility] MMR Unknown Completed [facility] IPV Unknown Completed [facility] Poliovirus, Live, Oral, Trivalent Unknown Completed [facility] HPV9 Unknown Completed [facility] TDAP Unknown Completed [facility] DTaP, Unspecified Formulation Unknown Completed [facility] HEPATITIS A Unknown Completed [facility] Hep B, Adol or Pedi Dosage Unknown Completed [facility] HIB 4 Dose Schedule Unknown Completed [facility] Haemophilus influenzae type b vaccine, conjugate unspecified formulation Unknown Completed [facility] HPV Unknown Completed [facility] Meningococcal Polysaccharide (groups A, C, Y and W-135) conjugate vaccine (MCV4P) Unknown Completed [facility] MMR Unknown Completed [facility] IPV Unknown Completed [facility] Poliovirus, Live, Oral, Trivalent Unknown Completed [facility] HPV9 Unknown Completed [facility] TDAP Unknown Completed [facility] DTaP, Unspecified Formulation Unknown Completed [facility] HEPATITIS A Unknown Completed [facility] Hep B, Adol or Pedi Dosage Unknown Completed [facility] HIB 4 Dose Schedule Unknown Completed [facility] Haemophilus influenzae type b vaccine, conjugate unspecified formulation Unknown Completed [facility] HPV Unknown Completed [facility] Meningococcal Polysaccharide (groups A, C, Y and W-135) conjugate vaccine (MCV4P) Unknown Completed [facility] MMR Unknown Completed [facility] IPV Unknown Completed [facility] Poliovirus, Live, Oral, Trivalent Unknown Completed [facility] HPV9 Unknown Completed [facility] TDAP Unknown Completed [facility] DTaP, Unspecified Formulation Unknown Completed [facility] HEPATITIS A Unknown Completed [facility] Hep B, Adol or Pedi Dosage Unknown Completed [facility] HIB 4 Dose Schedule Unknown Completed [facility] Haemophilus influenzae type b vaccine, conjugate unspecified formulation Unknown Completed [facility] HPV Unknown Completed [facility] Meningococcal Polysaccharide (groups A, C, Y and W-135) conjugate vaccine (MCV4P) Unknown Completed [facility] MMR Unknown Completed [facility] IPV Unknown Completed [facility] Poliovirus, Live, Oral, Trivalent Unknown Completed [facility] HPV9 Unknown Completed [facility] HEPATITIS A Unknown Completed [facility] Haemophilus influenzae type b vaccine, conjugate unspecified formulation Unknown Completed [facility] HPV Unknown Completed [facility] Meningococcal Polysaccharide (groups A, C, Y and W-135) conjugate vaccine (MCV4P) Unknown Completed [facility] HPV9 Unknown Completed [facility] TDAP Unknown Completed [facility] DTaP, Unspecified Formulation Unknown Completed [facility] Hep B, Adol or Pedi Dosage Unknown Completed [facility] HIB 4 Dose Schedule Unknown Completed [facility] MMR Unknown Completed [facility] IPV Unknown Completed [facility] Poliovirus, Live, Oral, Trivalent Unknown Completed [facility] HEPATITIS A Unknown Completed [facility] Haemophilus influenzae type b vaccine, conjugate unspecified formulation Unknown Completed [facility] HPV Unknown Completed [facility] Meningococcal Polysaccharide (groups A, C, Y and W-135) conjugate vaccine (MCV4P) Unknown Completed [facility] HPV9 Unknown Completed [facility] TDAP Unknown Completed [facility] DTaP, Unspecified Formulation Unknown Completed [facility] Hep B, Adol or Pedi Dosage Unknown Completed [facility] HIB 4 Dose Schedule Unknown Completed [facility] MMR Unknown Completed [facility] IPV Unknown Completed [facility] Poliovirus, Live, Oral, Trivalent Unknown Completed [facility] HEPATITIS A Unknown Completed [facility] Haemophilus influenzae type b vaccine, conjugate unspecified formulation Unknown Completed [facility] HPV Unknown Completed [facility] Meningococcal Polysaccharide (groups A, C, Y and W-135) conjugate vaccine (MCV4P) Unknown Completed [facility] HPV9 Unknown Completed [facility] TDAP Unknown Completed [facility] DTaP, Unspecified Formulation Unknown Completed [facility] Hep B, Adol or Pedi Dosage Unknown Completed [facility] HIB 4 Dose Schedule Unknown Completed [facility] MMR Unknown Completed [facility] IPV Unknown Completed [facility] Poliovirus, Live, Oral, Trivalent Unknown Completed [facility] TDAP Unknown Completed [facility] DTaP, Unspecified Formulation Unknown Completed [facility] HEPATITIS A Unknown Completed [facility] Hep B, Adol or Pedi Dosage Unknown Completed [facility] HIB 4 Dose Schedule Unknown Completed [facility] Haemophilus influenzae type b vaccine, conjugate unspecified formulation Unknown Completed [facility] HPV Unknown Completed [facility] Meningococcal Polysaccharide (groups A, C, Y and W-135) conjugate vaccine (MCV4P) Unknown Completed [facility] MMR Unknown Completed [facility] IPV Unknown Completed [facility] Poliovirus, Live, Oral, Trivalent Unknown Completed [facility] HPV9 Unknown Completed [facility] TDAP Unknown Completed [facility] DTaP, Unspecified Formulation Unknown Completed [facility] HEPATITIS A Unknown Completed [facility] Hep B, Adol or Pedi Dosage Unknown Completed [facility] HIB 4 Dose Schedule Unknown Completed [facility] Haemophilus influenzae type b vaccine, conjugate unspecified formulation Unknown Completed [facility] HPV Unknown Completed [facility] Meningococcal Polysaccharide (groups A, C, Y and W-135) conjugate vaccine (MCV4P) Unknown Completed [facility] MMR Unknown Completed [facility] IPV Unknown Completed [facility] Poliovirus, Live, Oral, Trivalent Unknown Completed [facility] HPV9 Unknown Completed [facility] TDAP Unknown Completed [facility] DTaP, Unspecified Formulation Unknown Completed [facility] HEPATITIS A Unknown Completed [facility] Hep B, Adol or Pedi Dosage Unknown Completed [facility] HIB 4 Dose Schedule Unknown Completed [facility] Haemophilus influenzae type b vaccine, conjugate unspecified formulation Unknown Completed [facility] HPV Unknown Completed [facility] Meningococcal Polysaccharide (groups A, C, Y and W-135) conjugate vaccine (MCV4P) Unknown Completed [facility] MMR Unknown Completed [facility] IPV Unknown Completed [facility] Poliovirus, Live, Oral, Trivalent Unknown Completed [facility] HPV9 Unknown Completed [facility] TDAP Unknown Completed [facility] DTaP, Unspecified Formulation Unknown Completed [facility] HEPATITIS A Unknown Completed [facility] Hep B, Adol or Pedi Dosage Unknown Completed [facility] HIB 4 Dose Schedule Unknown Completed [facility] Haemophilus influenzae type b vaccine, conjugate unspecified formulation Unknown Completed [facility] [facility] HPV Unknown Completed [facility] Meningococcal Polysaccharide (groups A, C, Y and W-135) conjugate vaccine (MCV4P) Unknown Completed [facility] MMR Unknown Completed [facility] IPV Unknown Completed [facility] Poliovirus, Live, Oral, Trivalent Unknown Completed [facility] HPV9 Unknown Completed [facility] TDAP Unknown Completed [facility] DTaP, Unspecified Formulation Unknown Completed [facility] HEPATITIS A Unknown Completed [facility] Hep B, Adol or Pedi Dosage Unknown Completed [facility] HIB 4 Dose Schedule Unknown Completed [facility] Haemophilus influenzae type b vaccine, conjugate unspecified formulation Unknown Completed [facility] HPV Unknown Completed [facility] Meningococcal Polysaccharide (groups A, C, Y and W-135) conjugate vaccine (MCV4P) Unknown Completed [facility] MMR Unknown Completed [facility] IPV Unknown Completed [facility] Poliovirus, Live, Oral, Trivalent Unknown Completed [facility] HPV9 Unknown Completed [facility] Vital Signs Vital Name Observation Time Observation Value Comments S ource Systolic blood pressure 2023-11-27 19:10:00 111 mm[Hg] [facility] Diastolic blood pressure 2023-11-27 19:10:00 76 mm[Hg] [facility] Heart rate 2023-11-27 19:10:00 111 /min [facility] Respiratory rate 2023-11-27 19:10:00 18 /min [facility] Body height 2023-11-27 19:10:00 165.1 cm [facility] Body weight 2023-11-27 19:10:00 124.286 kg [facility] BMI 2023-11-27 19:10:00 45.60 kg/m2 [facility] Systolic blood pressure 2023-11-26 20:40:00 112 mm[Hg] [facility] Diastolic blood pressure 2023-11-26 20:40:00 74 mm[Hg] [facility] Heart rate 2023-11-26 20:40:00 103 /min [facility] Body temperature 2023-11-26 20:40:00 36.39 Ava [facility] Body height 2023-11-26 20:40:00 165.1 cm [facility] Body weight 2023-11-26 20:40:00 123.923 kg [facility] BMI 2023-11-26 20:40:00 45.46 kg/m2 [facility] Systolic blood pressure 2023-11-22 18:07:00 134 mm[Hg] [facility] Diastolic blood pressure 2023-11-22 18:07:00 89 mm[Hg] [facility] Heart rate 2023-11-22 18:07:00 126 /min [facility] Body temperature 2023-11-22 18:07:00 36.28 Ava [facility] Respiratory rate 2023-11-22 18:07:00 18 /min [facility] Body height 2023-11-22 18:07:00 165.1 cm [facility] Body weight 2023-11-22 18:07:00 125.102 kg [facility] BMI 2023-11-22 18:07:00 45.90 kg/m2 [facility] Oxygen saturation in Arterial blood by Pulse oximetry 2023-11-22 18:07:00 98 /min [facility] Systolic blood pressure 2023-11-19 14:38:00 127 mm[Hg] [facility] Diastolic blood pressure 2023-11-19 14:38:00 86 mm[Hg] [facility] Heart rate 2023-11-19 14:38:00 107 /min [facility] Body temperature 2023-11-19 14:38:00 36.33 Ava [facility] Respiratory rate 2023-11-19 14:38:00 18 /min [facility] Body height 2023-11-19 14:38:00 165.1 cm [facility] Body weight 2023-11-19 14:38:00 123.741 kg [facility] BMI 2023-11-19 14:38:00 45.40 kg/m2 [facility] Oxygen saturation in Arterial blood by Pulse oximetry 2023-11-19 14:38:00 98 /min [facility] Systolic blood pressure 2023-11-18 16:30:00 156 mm[Hg] [facility] Diastolic blood pressure 2023-11-18 16:30:00 113 mm[Hg] [facility] Heart rate 2023-11-18 16:30:00 88 /min [facility] Respiratory rate 2023-11-18 16:30:00 18 /min [facility] Oxygen saturation in Arterial blood by Pulse oximetry 2023-11-18 16:30:00 98 /min [facility] Body temperature 2023-11-18 10:28:00 36.72 Ava [facility] Body height 2023-11-18 10:27:00 165.1 cm [facility] Body weight 2023-11-18 10:27:00 122.471 kg [facility] BMI 2023-11-18 10:27:00 44.93 kg/m2 [facility] Systolic blood pressure 2023-11-08 20:00:00 123 mm[Hg] [facility] Diastolic blood pressure 2023-11-08 20:00:00 91 mm[Hg] [facility] Respiratory rate 2023-11-08 20:00:00 17 /min [facility] Heart rate 2023-11-08 19:00:00 75 /min [facility] Oxygen saturation in Arterial blood by Pulse oximetry 2023-11-08 19:00:00 100 /min [facility] Body temperature 2023-11-08 17:00:00 36.83 Ava [facility] Body height 2023-11-08 15:16:00 165.1 cm [facility] Body weight 2023-11-08 15:16:00 122.471 kg [facility] BMI 2023-11-08 15:16:00 44.93 kg/m2 [facility] Systolic blood pressure 2023-08-06 19:07:00 135 mm[Hg] [facility] Diastolic blood pressure 2023-08-06 19:07:00 93 mm[Hg] [facility] Heart rate 2023-08-06 19:04:00 81 /min [facility] Body temperature 2023-08-06 19:04:00 36.11 Ava [facility] Respiratory rate 2023-08-06 19:04:00 18 /min [facility] Body height 2023-08-06 19:04:00 165.1 cm [facility] Body weight 2023-08-06 19:04:00 140.66 kg [facility] BMI 2023-08-06 19:04:00 51.60 kg/m2 [facility] Oxygen saturation in Arterial blood by Pulse oximetry 2023-08-06 19:04:00 100 /min [facility] Systolic blood pressure 2023-06-21 16:24:00 156 mm[Hg] [facility] Diastolic blood pressure 2023-06-21 16:24:00 98 mm[Hg] [facility] Heart rate 2023-06-21 16:24:00 94 /min [facility] Body temperature 2023-06-21 16:24:00 37.22 Ava [facility] Respiratory rate 2023-06-21 16:24:00 16 /min [facility] Body height 2023-06-21 16:24:00 165.1 cm [facility] Body weight 2023-06-21 16:24:00 127.007 kg [facility] BMI 2023-06-21 16:24:00 46.59 kg/m2 [facility] Oxygen saturation in Arterial blood by Pulse oximetry 2023-06-21 16:24:00 100 /min [facility] Systolic blood pressure 2023-01-24 20:58:00 132 mm[Hg] [facility] Diastolic blood pressure 2023-01-24 20:58:00 96 mm[Hg] [facility] Heart rate 2023-01-24 20:56:00 95 /min [facility] Body temperature 2023-01-24 20:56:00 36.67 Ava [facility] Respiratory rate 2023-01-24 20:56:00 18 /min [facility] Body height 2023-01-24 20:56:00 165.1 cm [facility] Body weight 2023-01-24 20:56:00 138.937 kg [facility] BMI 2023-01-24 20:56:00 50.97 kg/m2 [facility] Oxygen saturation in Arterial blood by Pulse oximetry 2023-01-24 20:56:00 100 /min [facility] Systolic blood pressure 2022-12-25 19:43:00 131 mm[Hg] [facility] Diastolic blood pressure 2022-12-25 19:43:00 86 mm[Hg] [facility] Heart rate 2022-12-25 19:43:00 72 /min [facility] Body temperature 2022-12-25 19:43:00 36.28 Ava [facility] Respiratory rate 2022-12-25 19:43:00 16 /min [facility] Body height 2022-12-25 19:43:00 165.1 cm [facility] Body weight 2022-12-25 19:43:00 138.347 kg [facility] BMI 2022-12-25 19:43:00 50.75 kg/m2 [facility] Oxygen saturation in Arterial blood by Pulse oximetry 2022-12-25 19:43:00 99 /min [facility] Systolic blood pressure 2022-01-20 20:03:00 135 mm[Hg] [facility] Diastolic blood pressure 2022-01-20 20:03:00 87 mm[Hg] [facility] Heart rate 2022-01-20 20:03:00 87 /min [facility] Body temperature 2022-01-20 20:03:00 36.56 Ava [facility] Respiratory rate 2022-01-20 20:03:00 17 /min [facility] Body height 2022-01-20 20:03:00 165.1 cm [facility] Body weight 2022-01-20 20:03:00 118.706 kg [facility] BMI 2022-01-20 20:03:00 43.55 kg/m2 [facility] Systolic blood pressure 2021-12-22 13:14:00 125 mm[Hg] [facility] Diastolic blood pressure 2021-12-22 13:14:00 86 mm[Hg] [facility] Heart rate 2021-12-22 13:14:00 96 /min [facility] Body temperature 2021-12-22 13:14:00 36.61 Ava [facility] Respiratory rate 2021-12-22 13:14:00 20 /min [facility] Body height 2021-12-22 13:14:00 165.1 cm [facility] Body weight 2021-12-22 13:14:00 108.41 kg [facility] BMI 2021-12-22 13:14:00 39.77 kg/m2 [facility] Systolic blood pressure 2021-11-29 12:00:00 142 mm[Hg] [facility] Diastolic blood pressure 2021-11-29 12:00:00 87 mm[Hg] [facility] Heart rate 2021-11-29 12:00:00 79 /min [facility] Body temperature 2021-11-29 12:00:00 36.72 Ava [facility] Respiratory rate 2021-11-29 12:00:00 18 /min [facility] Oxygen saturation in Arterial blood by Pulse oximetry 2021-11-29 12:00:00 100 /min [facility] Body height 2021-11-26 08:32:00 165.1 cm [facility] Body weight 2021-11-26 08:32:00 114.034 kg [facility] BMI 2021-11-26 08:32:00 41.84 kg/m2 [facility] Systolic blood pressure 2021-11-23 14:45:00 133 mm[Hg] [facility] Diastolic blood pressure 2021-11-23 14:45:00 102 mm[Hg] [facility] Heart rate 2021-11-23 14:42:00 77 /min [facility] Body temperature 2021-11-23 14:42:00 36.33 Ava [facility] Respiratory rate 2021-11-23 14:42:00 18 /min [facility] Body height 2021-11-23 14:42:00 165.1 cm [facility] Body weight 2021-11-23 14:42:00 114.17 kg [facility] BMI 2021-11-23 14:42:00 41.89 kg/m2 [facility] Systolic blood pressure 2021-11-11 15:03:00 120 mm[Hg] [facility] Diastolic blood pressure 2021-11-11 15:03:00 82 mm[Hg] [facility] Heart rate 2021-11-11 14:58:00 105 /min [facility] Body temperature 2021-11-11 14:57:00 36.33 Ava [facility] Respiratory rate 2021-11-11 14:57:00 18 /min [facility] Body height 2021-11-11 14:57:00 165.1 cm [facility] Body weight 2021-11-11 14:57:00 113.541 kg [facility] BMI 2021-11-11 14:57:00 41.65 kg/m2 [facility] Systolic blood pressure 2021-10-27 23:55:00 129 mm[Hg] [facility] Diastolic blood pressure 2021-10-27 23:55:00 76 mm[Hg] [facility] Heart rate 2021-10-27 23:55:00 88 /min [facility] Oxygen saturation in Arterial blood by Pulse oximetry 2021-10-27 23:55:00 96 /min [facility] Body temperature 2021-10-27 23:14:00 37 Ava [facility] Respiratory rate 2021-10-27 23:14:00 18 /min [facility] Body height 2021-10-27 22:26:00 165.1 cm [facility] Body weight 2021-10-27 22:26:00 111.131 kg [facility] BMI 2021-10-27 22:26:00 40.77 kg/m2 [facility] Systolic blood pressure 2021-10-27 18:08:00 140 mm[Hg] [facility] Diastolic blood pressure 2021-10-27 18:08:00 94 mm[Hg] [facility] Heart rate 2021-10-27 18:07:00 88 /min [facility] Body temperature 2021-10-27 18:07:00 35.61 Ava [facility] Respiratory rate 2021-10-27 18:07:00 18 /min [facility] Body weight 2021-10-27 18:07:00 110.224 kg [facility] BMI 2021-10-27 18:07:00 40.44 kg/m2 [facility] Procedures Procedure Date / Time Performed Performing Clinician Source US OVARY TORSION 2023-11-18 16:33:50 Kelly Simms [facility] URINALYSIS 2023-11-18 15:15:00 Caro Bauer [facility] CT ABDOMEN PELVIS W CONTRAST 2023-11-18 13:38:59 Caro Bauer [facility] LIPASE 2023-11-18 11:10:00 Caro Bauer [facility] TEST, SERUM 2023-11-18 11:10:00 Garima Bauer [facility] COMP. METABOLIC PANEL (31374) 2023-11-18 11:10:00 Caro Bauer [facility] CBC WITH DIFF 2023-11-18 11:10:00 Caro Bauer [facility] COMP. METABOLIC PANEL ([id number]) 2023-11-08 16:43:00 Tiff Isabel [facility] LIPASE 2023-11-08 16:01:00 Tiff Isabel [facility] CBC WITH DIFF 2023-11-08 16:01:00 Tiff Isabel [facility] URINALYSIS 2023-11-08 16:01:00 Tiff Isabel [facility] POCT TEST 2023-11-08 16:01:00 [facility], [facility]UM 2023-08-06 19:42:00 [facility] VIT[facility] B6, PLASMA 2023-08-06 19:42:00 Adri Munson [facility] FREE T4 2023-08-06 19:42:00 Jess [facility]h [facility] THYROID STIMULATING HORMONE 2023-08-06 19:42:00 ObJess Ramesh [facility] COMP. METABOLIC PANEL ([id number]) 2023-08-06 19:42:00 ObJess Ramesh [facility] CBC WITH DIFF 2023-08-06 19:42:00 [facility]h [facility] GLYCOSYLATED HEMOGLOBIN (A1C) 2023-08-06 19:42:00 Arun-Jess Reid [facility] VITAMIN D, 25-OH 2023-08-06 19:42:00 Alisha Munson [facility] FREE T3 2023-08-06 19:42:00 [facility] 2023-06-21 16:30:00 Zaynab Trivedi ra [facility] URINALYSIS 2023-06-21 16:29:00 Bonita Trivedi Un [facility] INSURANCE CORRESPONDENCE 2023-01-15 06:01:00 Enrique flores Unassigned, [place] [facility] INSURANCE CORRESPONDENCE 2023-01-06 06:01:00 Enrique flores Unassigned, [place] [facility] GARDASIL 9 (HPV 9V) VACCINE 2022-12-25 20:04:37 ObJess Ramesh [facility] POCT TEST 2022-01-20 20:18:00 Annette Voss [facility] DME/SUPPLY JUSTIFICATION 2022-01-03 06:01:00 Enrique flores Unassigned, [place] [facility] CBC WITH DIFF 2021-11-28 08:48:00 Adum, Vanessa Sears [facility] CENTRAL NEURAXIAL BLOCK 2021-11-26 20:52:15 Wilver Owens [facility] HB ABO GROUPING 2021-11-26 09:30:00 Adum, Vanessa Sevilla [facility] LACTATE DEHYDROGENASE 2021-11-26 09:29:00 Adum, Vanessa Cowan [facility] URIC ACID 2021-11-26 09:29:00 Adum, Vanessa Velasco [facility] COMP. METABOLIC PANEL ([id number]) 2021-11-26 09:29:00 Adum, Vanessa Cowan [facility] URINE DRUG (IMMUNOASSAY) - COMPREHENSIVE DRUG SCREEN 2021-11-26 09:29:00 Adum, Vanessa Cowan [facility] CBC WITH DIFF 2021-11-26 09:29:00 Adum, Vanessa Sears [facility] URINALYSIS 2021-11-26 09:29:00 Adum, Vanessa Cowan [facility] HEPATITIS B SURFACE ANTIGEN 2021-11-26 09:29:00 Adum, Vanessa Cowan [facility] ADC OR THOM[place] ONLY - RPR 2021-11-26 09:29:00 Adum, Sonia Cowan [facility] HIV 1/2 AG-AB WITH REFLEX 2021-11-26 09:29:00 Adum, Sonia Cowan [facility] CONSENT/REFUSAL FOR DIAGNOSIS AND TREATMENT 2021-11-26 08:08:59 Doctor Unassigned, [place] [facility] POCT URINALYSIS 2021-11-23 14:56:00 Rodrick Pete [facility] POCT URINALYSIS 2021-11-11 14:58:00 Rodrick Pete [facility] CONSENT/REFUSAL FOR DIAGNOSIS AND TREATMENT 2021-10-27 22:13:12 Doctor Unassigned, [place] [facility] POCT URINALYSIS 2021-10-27 18:21:00 Rodrick Pete [facility] Encounters Start Date/Time End Date/Time Encounter Type Admission Type Attending Clinicians Care Facility Care Department Encounter ID Source 2023-11-30 00:00:00 2023-12-04 09:32:31 Patient Secure Tianna Marrero [facility] 1.2.840.114 350.1.13.10 4.2.7.2.686 [id number] [facility] 2023-11-30 15:45:00 2023-11-30 15:45:00 Outpatient R ISAAC SHAY [facility] [id number] [facility] 2023-11-27 14:00:00 2023-11-27 14:37:01 Outpatient R VANESSA LEYVA VIVIAN [facility] [id number] [facility] 2023-11-27 14:00:00 2023-11-27 14:37:01 Office Visit Vanessa Leyva [facility] 1..840.114 350.1.13.10 4.2.7.2.686 [id number] [facility] 2023-11-26 15:00:00 2023-11-26 15:30:00 Office Visit Jose De Jesus Medina [facility] 1.2.840.114 350.1.13.10 4.2.7.2.686 [id number] [facility] 2023-11-26 15:00:00 2023-11-26 15:00:00 Outpatient R JOSE DE JESUS MEDINA VIEN [facility] [id number] [facility] 2023-11-22 13:00:00 2023-11-22 13:30:00 Office Visit Tianna Mei [facility] 1..840.114 350.1.13.10 4.2.7.2.686 [id number] [facility] 2023-11-22 13:00:00 2023-11-22 13:00:00 Outpatient R TIANNA MEI ASHLEY [facility] [id number] [facility] 2023-11-20 10:00:00 2023-11-20 10:00:00 Outpatient R [facility] [id number] [facility] 2023-11-19 10:30:00 2023-11-19 10:30:00 Rental Counter Clerk Visit 2, Adc Lab Jess Munson 2, Adc Lab [facility] 1.2.840.114 350.1.13.10 4.2.7.2.686 [id number] [facility] 2023-11-19 09:40:00 2023-11-19 10:03:53 Outpatient R OBSuzanne-FRANKLIN , JESS OBI-FRANKLIN , [facility] [id number] [facility] 2023-11-19 09:40:00 2023-11-19 10:03:53 [facility] 1.2.840.114 350.1.13.10 4.2.7.2.686 [id number] [facility] 2023-11-15 00:00:00 2023-11-18 18:57:29 [facility] 1.2.840.114 350.1.13.10 4.2.7.2.686 [id number] [facility] 2023-11-16 00:00:00 2023-11-18 18:53:00 Refill Arun-Franklin [facility] 1.2.840.114 350.1.13.10 4.2.7.2.686 [id number] [facility] 2023-11-18 05:34:00 2023-11-18 13:08:00 Emergency [facility]AS [facility] [id number] [facility] 2023-11-18 05:34:00 2023-11-18 13:08:00 Emergency Caro Bauer Robert Lee [facility] 1.2.840.114 350.1.13.10 4.2.7.2.686 [id number] [facility] 2023-11-08 10:16:00 2023-11-08 16:16:00 Emergency X TIFF ISABEL [facility]FF [facility] [id number] [facility] 2023-11-08 10:16:00 2023-11-08 16:16:00 Emergency Tiff Isabel [facility] 1.2.840.114 350.1.13.10 4.2.7.2.686 [id number] [facility] 2023-10-16 00:00:00 2023-10-19 05:44:04 Refill Obi-Franklin , [facility] 1.2.840.114 350.1.13.10 4.2.7.2.686 [id number] [facility] 2023-10-15 00:00:00 2023-10-16 10:48:03 Refill [facility] [facility] 1.2.840.114 350.1.13.10 4.2.7.2.686 [id number] [facility] 2023 09:40:00 2023 09:40:00 Outpatient R OBI-FRANKLIN , JESS OBI-FRANKLIN , [facility] [id number] [facility] 2023-10-01 00:00:00 2023-10-03 15:28:49 Refill Obi-Franklin [facility] 1.2.840.114 350.1.13.10 4.2.7.2.686 [id number] [facility] 2023-09-12 00:00:00 2023-09-13 13:09:32 [facility] 1.2.840.114 350.1.13.10 4.2.7.2.686 [id number] [facility] 2023-09-05 10:40:00 2023-09-05 10:40:00 Outpatient R OBI-FRANKLIN , JESS OBI-FRANKLIN , JESS [facility] [id number] [facility] 2023-08-13 14:40:00 2023-08-13 14:40:00 Outpatient R OBI-FRANKLIN , JESS OBI-FRANKLIN , [facility] [id number] [facility] 2023-08-06 14:30:00 2023-08-06 15:25:53 Rental Counter Clerk Visit 2, Adc Lab Obi-Franklin [facility] BU[facility] 1.2.840.114 350.1.13.10 4.2.7.2.686 [id number] [facility] 2023-08-06 14:30:00 2023-08-06 14:30:00 Outpatient R OBI-FRANKLIN , JESS OBI-FRANKLIN , [facility] [id number] [facility] 2023-08-06 13:40:00 2023-08-06 14:29:31 [facility] 1.2.840.114 350.1.13.10 4.2.7.2.686 [id number] [facility] 2023-08-06 08:40:00 2023-08-06 08:40:00 Outpatient R OBI-FRANKLIN , JESS OBI-FRANKLIN , [facility] [id number] [facility] 2023-07-31 00:00:00 2023-08-01 12:29:54 Telephone Konrad Beasley [facility] 1.2.840.114 350.1.13.10 4.2.7.2.686 [id number] [facility] 2023-07-31 00:00:00 2023-07-31 18:10:27 Refill Obi-Franklin [facility] 1.2.840.114 350.1.13.10 4.2.7.2.686 [id number] [facility] 2023-07-30 00:00:00 2023-07-31 09:10:12 Patient Secure Msg Obi-Franklin [facility] NAL BUILDING 1.2.840.114 350.1.13.10 4.2.7.2.686 [id number] [facility] 2023-07-25 00:00:00 2023-07-25 09:15:22 Refill Obi-Franklin [facility] 1.2.840.114 350.1.13.10 4.2.7.2.686 [id number] [facility] 2023-05-29 00:00:00 2023-06-30 18:07:42 Patient Secure Msg Obi-Franklin , [facility] 1.2.840.114 350.1.13.10 4.2.7.2.686 [id number] [facility] 2023-06-21 11:31:00 2023-06-21 12:29:00 Emergency X BONITA TRIVEDI [facility] [id number] [facility] 2023-06-21 11:31:00 2023-06-21 12:29:00 Emergency Bonita Trivedi [facility] 1..840.114 350.1.13.10 4.2.7.2.686 [id number] [facility] [facility] 2023-06-18 08:40:00 2023-06-18 08:40:00 Outpatient R OBI-FRANKLIN , JESS OBI-FRANKLIN , JESS [facility] [id number] [facility] 2023-06-12 00:00:00 2023-06-12 00:00:00 Patient Secure Msg Obi-Franklin , [facility] 1..840.114 350.1.13.10 4.2.7.2.686 [id number] [facility] 2023-06-06 13:00:00 2023-06-06 13:00:00 Outpatient R OBI-FRANKLIN , JESS OBI-FRANKLIN , JESS [facility] [id number] [facility] 2023-05-29 00:00:00 2023-05-29 00:00:00 Refill Obi-Franklin , Jess [facility] BUILDING 1..840.114 350.1.13.10 4.2.7.2.686 [id number] [id number] [facility] 2023-04-25 15:00:00 2023-04-25 15:00:00 Outpatient R OBI-FRANKLIN , JESS OBI-FRANKLIN , JESS [facility] [id number] [facility] 2023-04-23 00:00:00 2023-04-23 00:00:00 [facility] 1..840.114 350.1.13.10 4.2.7.2.686 [id number] 044 [id number] [facility] 2023-04-11 00:00:00 2023-04-11 00:00:00 [facility] BU[facility] 1.2.840.114 350.1.13.10 4.2.7.2.686 [id number] [id number] [facility] 2023-04-05 00:00:00 2023-04-05 00:00:00 Telephone Jeimy [facility] BUILDING 1.2.840.114 350.1.13.10 4.2.7.2.686 [id number] 044 [id number] [facility] 2023-04-03 00:00:00 2023-04-03 00:00:00 Telephone Carlos Ibrahim [facility] BUILDING 1.2.840.114 350.1.13.10 4.2.7.2.686 [id number] 044 [id number] [facility] 2023-04-03 00:00:00 2023-04-03 00:00:00 Patient Secure Msg Obi-Franklin [facility] BUILDING 1.2.840.114 350.1.13.10 4.2.7.2.686 [id number] 044 [id number] [facility] 2023-04-01 00:00:00 2023-04-01 00:00:00 Refill Obi-Franklin Jess [facility] BUILDING 1.2.840.114 350.1.13.10 4.2.7.2.686 [id number] 044 [id number] [facility] 2023-03-02 00:00:00 2023-03-02 00:00:00 [facility] 1.2840.114 350.1.13.10 4.2.7.2.686 [id number] [id number] [facility] 2023-02-19 00:00:00 2023-02-19 00:00:00 [facility] 1.2840.114 350.1.13.10 4.2.7.2.686 [id number] 044 [id number] [facility] 2023-01-26 00:00:00 2023-01-26 00:00:00 Patient Secure Msg Doctor Unassigned, [place] [facility] 1.20.114 350.1.13.10 4.2.7.2.686 [id number] 044 [id number] [facility] 2023-01-24 15:00:00 2023-01-24 15:25:03 Outpatient R OBI-FRANKLIN , JESS OBI-FRANKLIN , [facility] [id number] [facility] 2023-01-24 15:00:00 2023-01-24 15:25:03 Office Visit Obi-Franklin [facility] 1.2840.114 350.1.13.10 4.2.7.2.686 [id number] 044 [id number] [facility] 2023-01-16 00:00:00 2023-01-16 00:00:00 Refill Obi-Franklin [facility] 1.2840.114 350.1.13.10 4.2.7.2.686 [id number] 044 [id number] [facility] 2023-01-15 00:00:00 2023-01-15 00:00:00 Orders Only Doctor Unassigned, [place] [facility] 1.2840.114 350.1.13.10 4.2.7.2.686 [id number] [id number] [facility] 2023-01-15 00:00:00 2023-01-15 00:00:00 Patient Secure Msg Doctor Unassigned, [place] [facility] 1.2840.114 350.1.13.10 4.2.7.2.686 [id number] 044 [id number] [facility] 2023-01-08 00:00:00 2023-01-08 00:00:00 Telephone [facility] 1.20.114 350.1.13.10 4.2.7.2.686 [id number] [id number] [facility] 2023-01-06 00:00:00 2023-01-06 00:00:00 Orders Only Doctor Unassigned, [place] [facility] 1.2840.114 350.1.13.10 4.2.7.2.686 [id number] [facility] 2023-01-05 00:00:00 2023-01-05 00:00:00 [facility]phone [facility] 1.20.114 350.1.13.10 4.2.7.2.686 [id number] 044 [id number] [facility] 2023-01-03 00:00:00 2023-01-03 00:00:00 Telephone [facility] 1.20.114 350.1.13.10 4.2.7.2.686 [id number] 044 [id number] [facility] 2023-01-01 00:00:00 2023-01-01 00:00:00 Patient Secure Msg Doctor Unassigned, [place] [facility] BUILDING 1.2840.114 350.1.13.10 4.2.7.2.686 [id number] 044 [id number] [facility] 2022-12-28 00:00:00 2022-12-28 00:00:00 Patient Secure Msg Jeimy [facility] PROFESSIO NAL BUILDING 1.2.840.114 350.1.13.10 4.2.7.2.686 [id number] 044 [id number] [facility] 2022-12-26 00:00:00 2022-12-26 00:00:00 Telephone Jeimy [facility] NAL BUILDING 1.2.840.114 350.1.13.10 4.2.7.2.686 [id number] 044 [id number] [facility] 2022-12-25 14:45:00 2022-12-25 15:00:00 Rental Counter Clerk Visit 2, Adc Lab Jeimy [facility] BUILDING 1.2.840.114 350.1.13.10 4.2.7.2.686 [id number] [facility] 2022-12-25 14:00:00 2022-12-25 14:14:40 Outpatient R OBSuzanne-JESS REID OBI-FRANKLIN [facility] [id number] [facility] 2022-12-25 14:00:00 2022-12-25 14:14:40 Office Visit Jeimy [facility] BUILDING 1.2.840.114 350.1.13.10 4.2.7.2.686 [id number] 044 [id number] [facility] 2022-12-19 10:00:00 2022-12-19 10:00:00 Outpatient R OBI-JESS REID OBSuzanne[facility]FRANKLIN [facility] [id number] [facility] 2022-07-19 15:30:00 2022-07-19 15:30:00 Outpatient R KAMILA MILAN [facility] [id number] [facility] 2022-04-14 10:00:00 2022-04-14 10:00:00 Outpatient R [facility] [id number] [facility] 2022-01-20 13:00:00 2022-01-20 14:43:14 Outpatient JACINTA DAVIES [facility] [id number] [facility] 2022-01-20 13:00:00 2022-01-20 14:43:14 Office Visit Provider, Meche Harvey Brenda A [facility] SHIRT OPERATOR [facility] MATERNAL & CHILD HEALTH [facility] 1..840.114 350.1.13.10 4.2.7.2.686 [id number] 107 [id number] [facility] 2022-01-16 10:45:00 2022-01-16 10:45:00 Outpatient MECHE SEGURA [facility] [id number] [facility] 2022-01-05 00:00:00 2022-01-05 00:00:00 Encounter 1.2.840.1 72119.1.1 3.104.2.7 .[id number] 1.2.840.114 350.1.13.10 4.2.7.2.696 [id number] [facility] 2022-01-03 00:00:00 2022-01-03 00:00:00 Orders Only Doctor Unassigned, [place] [facility] 1.2840.114 350.1.13.10 4.2.7.2.686 [id number] [id number] [facility] 2021-12-29 00:00:00 2021-12-29 00:00:00 Patient Secure Rodrick Schwartz [facility] SHIRT OPERATOR [facility] 1.2.840.114 350.1.13.10 4.2.7.2.686 [id number] 107 [id number] [facility] 2021-12-22 07:45:00 2021-12-22 08:42:11 Outpatient R JACINTA VOSS [facility] [id number] [facility] 2021-12-22 07:45:00 2021-12-22 08:42:11 Routine Visit Provider, Dylan-Rmchp Jacinta Parra [facility] SHIRT OPERATOR [facility] & CHILD [facility] 1.2840.114 350.1.13.10 4.2.7.2.686 [id number] 107 [id number] [facility] 2021-12-03 00:00:00 2021-12-03 00:00:00 Patient Secure Msg Doctor Unassigned, [place] [facility] 1.840.114 350.1.13.10 4.2.7.2.686 [id number] [facility] 2021-11-30 00:00:00 2021-11-30 00:00:00 Patient Secure Msg PeteRodrick [facility] SHIRT OPERATOR [facility] & CHILD [facility] 1.2840.114 350.1.13.10 4.2.7.2.686 [id number] 107 [id number] [facility] 2021-11-26 03:26:00 2021-11-29 10:05:00 Inpatient P ADVANESSA MG [facility] [id number] [facility] 2021-11-26 03:26:00 2021-11-29 10:05:00 Hospital Encounter Vanessa Leyva [facility] 1.2840.114 350.1.13.10 4.2.7.2.686 [id number] 083 [id number] [facility] 2021-11-26 15:34:00 2021-11-27 08:48:00 Anesthesia Event Wilver Owens [facility] 1.2.840.114 350.1.13.10 4.2.7.2.686 [id number] 083 [id number] [facility] 2021-11-26 10:17:37 2021-11-26 10:17:37 Anesthesia Event Wilver Owens [facility] 1.2.840.114 350.1.13.10 4.2.7.2.686 [id number] 083 [id number] [facility] 2021-11-23 09:45:00 2021-11-23 10:25:58 Outpatient LOVE SANTA EMILY [facility] [id number] [facility] 2021-11-23 09:45:00 2021-11-23 10:25:58 [facility] Norton Emily J. [facility] SHIRT OPERATOR [facility] MATERNAL [facility] CHILD HEALTH [facility] 1.2.840.114 350.1.13.10 4.2.7.2.686 [id number] 107 [id number] [facility] 2021-11-11 09:45:00 2021-11-11 10:12:23 Routine Visit Rodrick Pete [facility] SHIRT OPERATOR [facility]ERNAL & [facility] 1.2.840.114 350.1.13.10 4.2.7.2.686 [id number] 107 [id number] [facility] 2021-11-11 09:45:00 2021-11-11 10:12:23 Outpatient RODRICK DENNIS [facility] [id number] [facility] 2021-11-11 00:00:00 2021-11-11 00:00:00 Patient Secure Msg Rodrick Pete [facility] SHIRT OPERATOR [facility]ERNAL [facility] 1.2.840.114 350.1.13.10 4.2.7.2.686 [id number] 107 [id number] [facility] 2021-11-09 00:00:00 2021-11-09 00:00:00 Telephone Rodrick Pete [facility] SHIRT OPERATOR [facility]ILD [facility] 1.2.840.114 350.1.13.10 4.2.7.2.686 [id number] 107 [id number] [facility] 2021-11-07 00:00:00 2021-11-07 00:00:00 Refill Rodrick Pete [facility] SHIRT OPERATOR [facility]ILD [facility] 1..840.114 350.1.13.10 4.2.7.2.686 [id number] 107 [id number] [facility] 2021-10-27 17:35:00 2021-10-27 19:05:00 Outpatient X BRENDA VELÁSQUEZ [facility] [id number] [facility] 2021-10-27 17:35:00 2021-10-27 19:05:00 Emergency Brenda Velásquez K Paige [facility] 1..840.114 350.1.13.10 4.2.7.2.686 [id number] 083 [id number] [facility] 2021-10-27 12:45:00 2021-10-27 13:34:39 Outpatient R RODRICK PETE [facility] [id number] [facility] 2021-10-27 12:45:00 2021-10-27 13:34:39 Routine Visit Rodrick Pete [facility] SHIRT OPERATOR [facility] 1.840.114 350.1.13.10 4.2.7.2.686 [id number] 107 [id number] [facility] 2021-10-27 12:45:00 2021-10-27 12:45:00 Outpatient R RODRICK PETE [facility] [id number] [facility] 2021-10-27 00:00:00 2021-10-27 00:00:00 Orders Only Doctor Unassigned, [place] [facility] 1.840.114 350.1.13.10 4.2.7.2.686 [id number] [facility] 2021-10-26 00:00:00 2021-10-26 00:00:00 Abstract Rodrick Pete [facility] SHIRT OPERATOR [facility] 1.840.114 350.1.13.10 4.2.7.2.686 [id number] 107 [id number] [facility] 2021-10-21 09:45:00 2021-10-21 10:30:00 Rental Counter Clerk Visit Ultrasound, Vinh Stone [facility] SHIRT OPERATOR [facility] .840.114 350.1.13.10 4.2.7.2.686 [id number] [facility] 2021-10-21 09:45:00 2021-10-21 09:45:00 Outpatient P VINH MONCADA SANGEETA [facility] [id number] [facility] 2021-10-18 00:00:00 2021-10-18 00:00:00 Patient Secure Msg Doctor Unassigned, [place] [facility] .840.114 350.1.13.10 4.2.7.2.686 [id number] 107 [id number] [facility] 2021-10-18 00:00:00 2021-10-18 00:00:00 Telephone Rodrick Pete [facility] SHIRT OPERATOR [facility]ILD [facility] 1..840.114 350.1.13.10 4.2.7.2.686 [id number] 107 [id number] [facility] 2021-10-14 08:00:00 2021-10-14 08:34:31 Outpatient R RODRICK PETE [facility] [id number] [facility] 2021-10-14 08:00:00 2021-10-14 08:34:31 Routine Visit Rodrick Pete Demetri [facility] SHIRT OPERATOR [facility] 1.840.114 350.1.13.10 4.2.7.2.686 [id number] 107 [id number] [facility] 2021-09-29 10:45:00 2021-09-29 11:39:29 Outpatient R RODRICK PETE [facility] [id number] [facility] 2021-09-29 10:45:00 2021-09-29 11:39:29 Routine Visit Marie Petegloria [facility] SHIRT OPERATOR [facility] 1.840.114 350.1.13.10 4.2.7.2.686 [id number] 107 [id number] [facility] 2021-09-29 10:45:00 2021-09-29 10:45:00 Outpatient RODRICK DENNIS [facility] [id number] [facility] 2021-09-16 00:00:00 2021-09-16 00:00:00 Patient Secure Msg Doctor Unassigned, [place] [facility] 1.84.114 350.1.13.10 4.2.7.2.686 [id number] [facility] 2021-09-16 00:00:00 2021-09-16 00:00:00 Telephone Kiki Petecuauhtemoc [facility] SHIRT OPERATOR [facility] CHILD [facility] 1.840.114 350.1.13.10 4.2.7.2.686 [id number] 107 [id number] [facility] 2021-09-16 00:00:00 2021-09-16 00:00:00 Telephone Kiki Petecuauhtemoc [facility] SHIRT OPERATOR [facility] 1.2.840.114 350.1.13.10 4.2.7.2.686 [id number] 107 [id number] [facility] 2021-09-15 10:45:00 2021-09-15 11:53:13 Outpatient R KIKI PETECUAUHTEMOC [facility] [id number] [facility] 2021-09-15 10:45:00 2021-09-15 11:53:13 Routine Visit Kiki Petecuauhtemoc Mosquera [facility] SHIRT OPERATOR [facility] 1.2840.114 350.1.13.10 4.2.7.2.686 [id number] 107 [id number] [facility] 2021-09-13 00:00:00 2021-09-13 00:00:00 Refill He Rodrick [facility] SHIRT OPERATOR [facility] 1..840.114 350.1.13.10 4.2.7.2.686 [id number] 107 [id number] [facility] 2021-08-23 08:45:00 2021-08-23 22:46:00 Outpatient X BRENDA VELÁSQUEZ [facility] [id number] [facility] 2021-08-23 08:45:00 2021-08-23 22:46:00 Emergency Martinez, Ivanna Velásquez Brenda [facility] 1.840.114 350.1.13.10 4.2.7.2.686 [id number] [id number] [facility] 2021-08-18 10:30:00 2021-08-18 10:44:10 Outpatient R PETERODRICK [facility] [id number] [facility] 2021-08-18 10:30:00 2021-08-18 10:44:10 Routine Visit PeteRodrick [facility] SHIRT OPERATOR [facility] 1.2.840.114 350.1.13.10 4.2.7.2.686 [id number] 107 [id number] [facility] 2021-08-11 00:00:00 2021-08-11 00:00:00 Patient Secure Msg Rodrick Pete [facility] SHIRT OPERATOR [facility] 1.2.840.114 350.1.13.10 4.2.7.2.686 [id number] 107 [id number] [facility] 2021-08-11 00:00:00 2021-08-11 00:00:00 Rodrick Buckner [facility] SHIRT OPERATOR [facility] 1.2.840.114 350.1.13.10 4.2.7.2.686 [id number] 107 [id number] [facility] 2021-08-11 00:00:00 2021-08-11 00:00:00 Rodrick Buckner [facility] SHIRT OPERATOR [facility] 1.2.840.114 350.1.13.10 4.2.7.2.686 [id number] 107 [id number] [facility] 2021-08-11 00:00:00 2021-08-11 00:00:00 Rodrick Buckner [facility] SHIRT OPERATOR [facility] 1.2.840.114 350.1.13.10 4.2.7.2.686 [id number] 107 [id number] [facility] 2021-08-02 00:00:00 2021-08-02 00:00:00 Abstract Rodrick Pete Demetri [facility] SHIRT OPERATOR [facility]ILD [facility] 1.2.840.114 350.1.13.10 4.2.7.2.686 [id number] 107 [id number] [facility] 2021-08-01 00:00:00 2021-08-01 00:00:00 Patient Secure Msg Doctor Unassigned, [place] [facility] SHIRT OPERATOR [facility] 1.840.114 350.1.13.10 4.2.7.2.686 [id number] 107 [id number] [facility] 2021-07-29 09:30:00 2021-07-29 10:45:00 Rental Counter Clerk Visit Ultrasound, GiovannaMfm Rodrick Pete Antonio F [facility] SHIRT OPERATOR [facility] 1.840.114 350.1.13.10 4.2.7.2.686 [id number] [facility] 2021-07-29 09:30:00 2021-07-29 09:30:00 Outpatient P [facility] [id number] [facility] 2021-07-29 09:30:00 2021-07-29 09:30:00 Outpatient MADDIE LANDRY [facility] [id number] [facility] 2021-07-29 08:00:00 2021-07-29 08:36:27 Rental Counter Clerk Visit Lab, Ang-Rmchp Rodrick Pete [facility] SHIRT OPERATOR [facility] 1.840.114 350.1.13.10 4.2.7.2.686 [id number] 107 [id number] [facility] 2021-07-23 00:00:00 2021-07-23 00:00:00 Patient Secure Msg Doctor Unassigned, [place] [facility] 1.840.114 350.1.13.10 4.2.7.2.686 [id number] [facility] 2021-07-21 09:00:00 2021-07-21 10:12:55 Outpatient R RODRICK PETE [facility] [id number] [facility] 2021-07-21 09:00:00 2021-07-21 10:12:55 Routine Visit Rodrick Pete [facility] SHIRT OPERATOR [facility] 1.2.840.114 350.1.13.10 4.2.7.2.686 [id number] 107 [id number] [facility] 2021-07-21 09:00:00 2021-07-21 10:12:55 Outpatient KIKI DENNISTAYLAGloria [facility] [id number] [facility] 2021-07-21 09:00:00 2021-07-21 09:00:00 Outpatient KIKI DENNISLIMAGloria [facility] [id number] [facility] 2021-07-21 09:00:00 2021-07-21 09:00:00 Outpatient KIKI DENNISLIMAGloria [facility] [id number] [facility] 2021-07-17 02:36:00 2021-07-17 06:54:00 Emergency X CARO BAUER [facility] [id number] [facility] 2021-07-17 02:36:00 2021-07-17 06:54:00 Emergency Caro Bauer S [facility] 1.840.114 350.1.13.10 4.2.7.2.686 [id number] [facility] 2021-07-12 00:00:00 2021-07-12 00:00:00 Telephone Rodrick Pete [facility] SHIRT OPERATOR [facility] 1.2.840.114 350.1.13.10 4.2.7.2.686 [id number] 107 [id number] [facility] 2021-07-06 00:00:00 2021-07-06 00:00:00 Telephone PeteRodrick [facility] SHIRT OPERATOR [facility] 1.2.840.114 350.1.13.10 4.2.7.2.686 [id number] 107 [id number] [facility] 2021-06-28 01:26:00 2021-06-29 10:10:00 Outpatient X BRENDA VELÁSQUEZ [facility] [id number] [facility] 2021-06-28 01:26:00 2021-06-29 10:10:00 Emergency Alayna Bear Megan [facility] 1.2.840.114 350.1.13.10 4.2.7.2.686 [id number] [facility] 2021-06-27 20:49:00 2021-06-27 20:59:00 Emergency X [facility] ERT [id number] [facility] 2021-06-27 20:49:00 2021-06-27 20:59:00 Emergency [facility] 1.2.840.114 350.1.13.10 4.2.7.2.686 [id number] [facility] 2021-06-24 00:00:00 2021-06-24 00:00:00 Patient Secure Msg Rodrick Pete [facility] SHIRT OPERATOR [facility] 1.2.840.114 350.1.13.10 4.2.7.2.686 [id number] 107 [id number] [facility] 2021-06-24 00:00:00 2021-06-24 00:00:00 Telephone Rodrick Pete [facility] SHIRT OPERATOR [facility] 1.2.840.114 350.1.13.10 4.2.7.2.686 [id number] 107 [id number] [facility] 2021-06-23 14:00:00 2021-06-23 15:33:45 Outpatient R RODRICK PETE [facility] [id number] [facility] 2021-06-23 14:00:00 2021-06-23 15:33:45 Initial Visit Rodrick Pete [facility] SHIRT OPERATOR [facility] 1.2.840.114 350.1.13.10 4.2.7.2.686 [id number] [facility] 2021-06-23 14:00:00 2021-06-23 15:33:45 Outpatient [facility] [id number] [facility] 2021-06-23 14:00:00 2021-06-23 15:33:45 [facility] [id number] [facility] 2021-06-23 00:00:00 2021-06-23 00:00:00 Orders Only Doctor Unassigned, [place] [facility] 1.2.840.114 350.1.13.10 4.2.7.2.686 [id number] [facility] 2021-06-22 08:04:00 2021-06-22 13:00:00 Emergency X ANGUS DWYER [facility] [id number] [facility] 2021-06-22 08:04:00 2021-06-22 13:00:00 Emergency Angus Dwyer [facility] 1.2.840.114 350.1.13.10 4.2.7.2.686 [id number] [facility] 2021-06-21 22:18:00 2021-06-21 23:26:00 Emergency Caro Baeur [facility] 1.2.840.114 350.1.13.10 4.2.7.2.686 [id number] [facility] 2021-06-21 22:18:00 2021-06-21 23:26:00 Emergency X CARO BAUER [facility] ERT [id number] [facility] 2021-06-21 22:18:00 2021-06-21 23:26:00 Emergency X CARO BAUER [facility] E[facility] [id number] [facility] 2021-06-11 12:44:00 2021-06-14 18:06:00 Inpatient X JOSE DE JESUS MEDINA [facility] [id number] [facility] 2021-06-11 12:44:00 2021-06-14 18:06:00 Hospital Encounter Abdullahi Gomez Christopher Adum, Vanessa Camryn Jose De Jesus Medina [facility] 1.2.840.114 350.1.13.10 4.2.7.2.686 [id number] [facility] 2021-05-30 23:49:00 2021-06-03 14:41:00 Hospital Encounter Abdullahi Gomez Shannon M [facility] 1.2.840.114 350.1.13.10 4.2.7.2.686 [id number] [facility] 2021-05-30 23:49:00 2021-06-03 14:41:00 Inpatient X EDITH TERRY SHANNON [facility] [id number] [facility] Results Test Description Test Time Test Comments Results Result Comments Source US OVARY TORSION 16:40:41 EXAM: US OVARY TORSION HISTORY: 28 years-old Female; Provided indication: eval for torsion; pelvicpain; bilateral 5.1cm cysts seen on CT . LMP = 4Pregnancy test = Negative. TECHNIQUE: Transabdominal and transvaginal ultrasound imaging and colorDoppler evaluation of the pelvis was performed. Spectral Doppler evaluationof the ovaries was performed. Animal Pathologist images were obtained for thereflrd. COMPARISON: Same day CT pelvis FINDINGS: Uterus: The uterus measures 7.5 x 3.9 x 5.2 cm. The endometrium is normal inappearance and is 0.4 cm thick. No focal uterine lesion is seen. The cervixis unremarkable. Right Adnexa:Ovary: The right ovary measures 5.0 x 2.3 x 4.3 cm with a volume of 26.0ml. Bilobed thick walled cystic structures measuring 3.7 x 2.8 x 3.5 cm and2.8 x 1.9 x 2.1 cm are inseparable from the right ovary. These have thininternal septations, no obvious solid components, or and no increased flowon color Doppler Normal arterial and venous waveforms are visualized.Normal flow is seen on color Doppler. Left Adnexa:Ovary: The left ovary measures 3.7 x 1.6 x 3.1 cm with a volume of 9.6 ml.A dominant follicle is noted..Normal arterial and venous waveforms arevisualized. Normal flow is seen on color Doppler. [facility] CT ABDOMEN PELVIS W CONTRAST 14:33:00 Indication: Nausea/vomiting ? Comparison: None RL: [id number] ORDERING PHYSICIAN: ?CARO ?LIZETTE TECHNIQUE: Axial CT images of the abdomen and pelvis were performed with ivcontrast. Sagittal and coronal reformats were created. Dose reductiontechniques were used (ALARA). FINDINGS: ?Bilateral lung bases are clear. Abdomen/pelvis:Liver: Normal in attenuation. Gallbladder: Gallbladder is within normal limits. Spleen: Normal. Pancreas: Normal. Adrenal glands: Normal. Kidneys: Normal Vasculature: Abdominal aorta is normal in caliber. Bowel: No evidence of bowel obstruction.The appendix is visualized and isnot inflamed. Bladder/reproductive organs: Urinary bladder is unremarkable. Bilateralovarian cysts measuring up to 5.1 cm and the right ovary. Bone and soft tissue: No acute osseous abnormality is noted. [facility] [id number] 11:58:40* Test Item Value Reference Range Interpretation Comme nts NA (test code = 5460467407) 138 mmol/L 135-145 K (test code = 7271178382) 3.5 mmol/L 3.5-5.0 CL (test code = 9985049258) 106 mmol/L 98-108 CO2 TOTAL (test code = 1930403356) 23 mmol/L 23-31 AGAP (test code = 1580826630) 9 2-16 BUN (test code = 4349425220) 6 mg/dL 7-23 L GLUCOSE (test code = 0238769670) 122 mg/dL 70-110 H CREATININE (test code = 2160-0) 0.61 mg/dL 0.50-1.04 TOTAL BILI (test code = 2730285594) 0.6 mg/dL 0.1-1.1 CALCIUM (test code = 1872273248) 9.0 mg/dL 8.6-10.6 T PROTEIN (test code = 3346420085) 8.1 g/dL 6.3-8.2 ALBUMIN (test code = 9681739585) 4.4 g/dL 3.5-5.0 ALK PHOS (test code = 4963889572) 85 U/L 34-122 ALTv (test code = 1742-6) 20 U/L 5-35 AST(SGOT) (test code = 8038485222) 19 U/L 13-40 eGFR (test code = 65731-5) 125.8 mL/min/1.73m2 CKD-EPI eGFR (2020). Assuming creatinine has been stable day-to-day for at least three months, the eGFR indicates Category G1 (>= 90 mL/min/1.73 m2) Lab Interpretation (test code = 55720-2) [facility]normal [facility], [id number] 11:58:19* Test Item Value Reference Range Interpretation Comme nts LIPASE (test code = 8475442568) 40 U/L 0-220 Lab Interpretation (test cod e = 09693-0) Normal [facility]CBC with [id number] 11:41:57* Test Item Value Reference Range Interpretation Comme nts WBC (test code = 6690-2) 9.80 4.30-11.10 RBC (test code = 789-8) 4.50 3.93-5.25 HGB (test code = 718-7) 14.8 g/dL 11.6-15.0 HCT (test code = 4544-3) 45.1 % 35.7-45.2 MCV (test code = 787-2) 100.2 fL 80.6-95.5 H MCH (test code = 785-6) 32.9 pg 25.9-32.8 H MCHC (test code = 786-4) 32.8 g/dL 31.6-35.1 RDW-SD (test code = 16562-5) 51.3 fL 39.0-49.9 H RDW-CV (test code = 788-0) 13.7 % 12.0-15.5 PLT (test code = 777-3) 349 166-358 MPV (test code = 32955-4) 9.3 fL 9.5-12.9 L NRBC/100 WBC (test code = 5549932523) 0.0 0.0-10.0 NRBC x10^3 (test code = 2434468908) See_Comment [Automated messa ge] The system which generated this result transmitted reference range: 10*3/?L. The reference range was not used to interpret this result as normal/abnormal. GRAN MAT (NEUT) % (test code = 770-8) 73.3 % IMM GRAN % (test code = 9963865216) 0.40 % LYMPH % (test code = 736-9) 19.0 % MONO % (test code = 5905-5) 4.8 % EOS % (test code = 713-8) 2.0 % BASO % (test code = 706-2) 0.5 % GRAN MAT x10^3(ANC) (test code = 4639466909) 7.18 10*3/uL 1.88-7.09 H IMM GRAN x10^3 (test code = 9151791511) 0.04 10*3/uL 0.00-0.06 LYMPH x10^3 (test code = 731-0) 1.86 10*3/uL 1.32-3.29 MONO x10^3 (test code = 742-7) 0.47 10*3/uL 0.33-0.92 EOS x10^3 (test code = 711-2) 0.20 10*3/uL 0.03-0.39 BASO x10^3 (test code = 704-7) 0.05 10*3/uL 0.01-0.07 Lab Interpretation (test code = 95384-7) Abnormal [facility]. METABOLIC PANEL (01058)2023-11-08 17:45:25* Test Item Value Reference Range Interpretation Comme nts NA (test code = 2954018885) 136 mmol/L 135-145 K (test code = 5631427708) 3.1 mmol/L 3.5-5.0 L CL (test code = 9235770358) 105 mmol/L 98-108 CO2 TOTAL (test code = 9000352728) 21 mmol/L 23-31 L AGAP (test code = 5769482825) 10 2-16 BUN (test code = 9999164066) 12 mg/dL 7-23 GLUCOSE (test code = 4970419511) 92 mg/dL 70-110 CREATININE (test code = 2160-0) 0.57 mg/dL 0.50-1.04 TOTAL BILI (test code = 3145825677) 0.6 mg/dL 0.1-1.1 CALCIUM (test code = 7278914127) 9.0 mg/dL 8.6-10.6 T PROTEIN (test code = 4087560131) 8.0 g/dL 6.3-8.2 ALBUMIN (test code = 5033174252) 4.3 g/dL 3.5-5.0 ALK PHOS (test code = 1838282739) 81 U/L 34-122 ALTv (test code = 1742-6) 17 U/L 5-35 AST(SGOT) (test code = 6887536653) 45 U/L 13-40 H eGFR (test code = 41002-4) 127.9 mL/min/1.73m2 CKD-EPI eGFR (2020). Assuming creatinine has been stable day-to-day for at least three months, the eGFR indicates Category G1 (>= 90 mL/min/1.73 m2) Lab Interpretation (test code = 77114-8) [facility]normal [facility] HospitalLIPASE2024-09-19 16:30:35* Test Item Value Reference Range Interpretation Comme nts LIPASE (test code = 2021855472) 53 U/L 0-220 Lab Interpretation (test cod e = 76719-9) Normal [facility] HospitalCBC WITH [id number] 16:15:57* Test Item Value Reference Range Interpretation Comme nts WBC (test code = 6690-2) 11.95 4.30-11.10 H RBC (test code = 789-8) 4.50 3.93-5.25 HGB (test code = 718-7) 14.7 g/dL 11.6-15.0 HCT (test code = 4544-3) 44.4 % 35.7-45.2 MCV (test code = 787-2) 98.7 fL 80.6-95.5 H MCH (test code = 785-6) 32.7 pg 25.9-32.8 MCHC (test code = 786-4) 33.1 g/dL 31.6-35.1 RDW-SD (test code = 69375-0) 50.1 fL 39.0-49.9 H RDW-CV (test code = 788-0) 13.8 % 12.0-15.5 PLT (test code = 777-3) 471 166-358 H MPV (test code = 85953-6) 9.2 fL 9.5-12.9 L NRBC/100 WBC (test code = 4691244545) 0.0 0.0-10.0 NRBC x10^3 (test code = 4753423735) See_Comment [Automated messa ge] The system which generated this result transmitted reference range: 10*3/?L. The reference range was not used to interpret this result as normal/abnormal. GRAN MAT (NEUT) % (test code = 770-8) 77.8 % IMM GRAN % (test code = 9918535498) 0.30 % LYMPH % (test code = 736-9) 16.7 % MONO % (test code = 5905-5) 4.7 % EOS % (test code = 713-8) 0.2 % BASO % (test code = 706-2) 0.3 % GRAN MAT x10^3(ANC) (test code = 8334292574) 9.31 10*3/uL 1.88-7.09 H IMM GRAN x10^3 (test code = 7324216770) 0.04 10*3/uL 0.00-0.06 LYMPH x10^3 (test code = 731-0) 1.99 10*3/uL 1.32-3.29 MONO x10^3 (test code = 742-7) 0.56 10*3/uL 0.33-0.92 EOS x10^3 (test code = 711-2) 0.03-0.39 L BASO x10^3 (test code = 704-7) 0.03 10*3/uL 0.01-0.07 Lab Interpretation (test code = 11608-9) Abnormal [facility] [id number] 16:01:00* Test Item Value Reference Range Interpretation Comme nts POCT PREG (test code = 1605) Negative On board controls acceptable with C Line (test code = 3574) Yes POCT PREG LOT # (test code = 3575) [id number] POCT PREG TEST DATE ( test code = 3576) 11-28-24 Lab Interpretation (test cod e = 08788-8) Normal [facility] [id number] 16:30:00* Test Item Value Reference Range Interpretation Comme nts POCT PREG (test code = 1605) Negative On board controls acceptable with C Line (test code = 3574) Yes POCT PREG LOT # (test code = 3575) 119588 POCT PREG TEST DATE ( test code = 3576) 03/28/2024 Lab Interpretation (test cod e = 29531-9) Normal [facility] [id number] 20:18:00* Test Item Value Reference Range Interpretation Comme nts POCT PREG (test code = 1605) Negative On board controls acceptable with C Line (test code = 3574) Yes POCT PREG LOT # (test code = 3575) POCT PREG TEST DATE ( test code = 3576) [facility] [id number] 20:18:00* Test Item Value Reference Range Interpretation Comme nts POCT PREG (test code = 1605) Negative On board controls acceptable with C Line (test code = 3574) Yes POCT PREG LOT # (test code = 3575) POCT PREG TEST DATE ( test code = 3576) [facility] OR [place] ONLY - [id number] 04:42:10* Test Item Value Reference Range Interpretation Comme nts RPR (Qualitative) (test code = 40527-7) Nonreactive Nonreactive Lab Interpretation (test cod e = 84408-3) Normal [facility]He[facility] hospital[facility] Surface [id number] 17:49:35 * Test Item Value Reference Range Interpretation Comme nts HBsAg Semi-Quantitative (mesha t code = 5195-3) Negative Negative [facility]HIV [facility]2 AG-AB WITH [id number] 12:19:16* Test Item Value Reference Range Interpretation Comme nts HIV Semi-quantitative (test code = 32393-4) Negative Negative RUMA (test code = RUMA) Non-reactive for HIV-1 antigen and HIV-1/HIV-2 antibodies. ?No laboratory evidence of HIV infection. ?Repeat in 2-4 weeks if acute HIV infection is suspected. [facility]. METABOLIC PANEL (26082)2021-11-26 11:29:08* Test Item Value Reference Range Interpretation Comme nts NA (test code = 5521197599) 137 mmol/L 135-145 K (test code = 8410124925) 3.6 mmol/L 3.5-5 CL (test code = 6804775381) 105 mmol/L 98-108 CO2 TOTAL (test code = 3528803648) 21 mmol/L 23-31 L AGAP (test code = 8706735204) 2-16 BUN (test code = 2575692596) 4 mg/dL 7-23 L GLUCOSE (test code = 8610629873) 93 mg/dL 70-110 CREATININE (test code = 7614623535) 0.49 mg/dL 0.5-1.04 L TOTAL BILI (test code = 0200623406) 0.2 mg/dL 0.1-1.1 CALCIUM (test code = 4723479244) 9.0 mg/dL 8.6-10.6 T PROTEIN (test code = 5976224187) 6.9 g/dL 6.3-8.2 ALBUMIN (test code = 5747373268) 3.7 g/dL 3.5-5 ALK PHOS (test code = 4203404653) 169 U/L 34-122 H ALTv (test code = 1742-6) 15 U/L 5-35 AST(SGOT) (test code = 0956080340) 23 U/L 13-40 eGFR (test code = 4460071825) mL/min/1.73m2 RUMA (test code = RUMA) Association [...] imaging tests). Lab Interpretation (test code = 44797-5) Abnormal [facility] HospitalURIC [id number] 11:28:48* Test Item Value Reference Range Interpretation Comme [facility] URIC ACID (test code = 5784540787) 3.4 mg/dL 2.9-6 Lab Interpretation (test cod e = 62954-0) Normal [facility] HospitalLACTATE [id number] 11:24:10* Test Item Value Reference Range Interpretation Comme nts LDH (test code = 2549398942) 216 U/L 120-246 Lab Interpretation (test cod e = 34298-4) Normal [facility] HospitalType and Screen - ONCE [id number] 10:30:18 * Test Item Value Reference Range Interpretation Comme nts ABO & RH (test code = 20) O Positive Performed at [facility] Laboratory [facility] Blood [address] [place], [place] [id number] Free: [phone] No. [id number] IAT (test code = 1185) Negative Performed at [facility] Laboratory [facility] Blood [address] [place], [place] [id number] Free: [phone] No. [id number] [facility] with [id number] 09:46:38* Test Item Value Reference Range Interpretation [...] 34.9 g/dL 31.6-35.1 RDW-SD (test code = 81884-0) 40.9 fL 39-49.9 RDW-CV (test code = 788-0) 12.2 % 12-15.5 PLT (test code = 777-3) See_Comment [Automated messa ge] The system which generated this result transmitted reference range: 166 - 358 10*3/?L. The reference range was not used to interpret this result as normal/abnormal. MPV (test code = 73281-6) 9.9 fL 9.5-12.9 NRBC/100 WBC (test code = 2751976811) See_Comment [Automated me ssage] The system which generated this result transmitted reference range: 0.0 - 10.0 /100 WBCs. The reference range was not used to interpret this result as normal/abnormal. NRBC x10^3 (test code = 1047797504) See_Comment [Automated messa ge] The system which generated this result transmitted reference range: 10*3/?L. The reference range was not used to interpret this result as normal/abnormal. GRAN MAT (NEUT) % (test code = 770-8) 70.4 % IMM GRAN % (test code = 3324626542) 0.70 % LYMPH % (test code = 736-9) 20.1 % MONO % (test code = 5905-5) 6.0 % EOS % (test code = 713-8) 2.5 % BASO % (test code = 706-2) 0.3 % GRAN MAT x10^3(ANC) (test code = 0129833100) 8.92 10*3/uL 1.88-7.09 H IMM GRAN x10^3 (test code = 7061237372) 0.09 10*3/uL 0-0.06 H LYMPH x10^3 (test code = 731-0) 2.55 10*3/uL 1.32-3.29 MONO x10^3 (test code = 742-7) 0.76 10*3/uL 0.33-0.92 EOS x10^3 (test code = 711-2) 0.32 10*3/uL 0.03-0.39 BASO x10^3 (test code = 704-7) 0.04 10*3/uL 0.01-0.07 Lab Interpretation (test code = 49932-0) Abnormal [facility] URINALYSIS W SPECIFIC [id number] 14:56:00* Test Item Value Reference Range Interpretation [...] POCT U APPEAR (test code = 3267) [facility] URINALYSIS W SPECIFIC [id number] 14:56:00* Test Item Value Reference Range Interpretation [...] POCT U APPEAR (test code = 3267) [facility] URINALYSIS W SPECIFIC [id number] 14:58:00* Test Item Value Reference Range Interpretation [...] U APPEAR (test code = 3267) [facility] [id number] 14:58:00* Test Item Value Reference Range Interpretation [...] POCT U APPEAR (test code = 3267) [facility] URINALYSIS W SPECIFIC [id number] 14:58:00* Test Item Value Reference Range Interpretation [...] POCT U APPEAR (test code = 3267) [facility] URINALYSIS W SPECIFIC [id number] 14:58:00* Test Item Value Reference Range Interpretation [...] POCT U APPEAR (test code = 3267) [facility] URINALYSIS W SPECIFIC [id number] 14:58:00* Test Item Value Reference Range Interpretation [...] POCT U APPEAR (test code = 3267) [facility] URINALYSIS W SPECIFIC [id number] 18:21:00* Test Item Value Reference Range Interpretation [...] POCT U APPEAR (test code = 3267) [facility] Notes Date/Time Note Provider Source 2023-11-19 10:30:00 Breath test [facility] 2023-11-19 10:30:00 Addended by: AYESHA LIANG on: 11/19/2023 02:54 PM Modules accepted: Orders Ayesha Liang [facility] 2023-11-19 08:13:22 Pt has scheduled appointment for 11/18. Rossana Malik [facility] 2023-11-18 18:46:30 1. Primary insomnia Update patient that we will work on weaning off on zolpidem and she is due for an appointment before any further refills. Would not also not refill with concurrent use of opioid Will recommend to touch base with sleep medicine. Encourage sleep hygiene Also Phentermine has been used for 6 months and approved for short time use and with no significant benefit, will also discontinue. [facility] 2023-11-18 13:08:04 Patient given printed and verbal discharge instructions regarding Nausea and vomiting. 2 Prescriptions provided Pt verbalized understanding of instructions, pt awake alert oriented, resp reg unlabored, skin w/d, color appropriate for race, moves all ext well,pt encouraged to follow up with pcp. Advised to seek medical attention for new/prolonged/worsening of symptoms. No adverse reaction to meds given in ER noted upon discharge PIV d'cd, dressing to site, catheter in tact. Awake, alert oriented, resp reg unlabored, skin w/d, pt leaving amb with steady gait, in no apparent distress. Tosha Duval RN [facility] 2023-11-18 07:19:14 [facility] ED Transfer of Care Note. Off-going Physician:Lizette Time of Transfer of Care: 7:00 AM Summary: Lanre Bales is a 28 year old female presenting with chief complaint of nausea with vomiting, abdominal pain. 2 days of nausea with vomiting, multiple episodes. Non-bloody. No diarrhea. No known fever. Followed by abdominal pain, supraumbilical, constant with wax/wane intensity, aggravated with emesis, no definitive relieving factors. Having difficulty urinating. No flank pain. No history of abdominal surgeries. Pending prior to disposition: Labs, Imaging, Medications, and Reevaluation Current interventions: Medications sodium chloride (NS) injection 5 mL (has no administration in time range) ondansetron (ZOFRAN (PF)) injection 8 mg (8 mg Slow IV Push Given 11/18/23 0610) fentanyl PF (SUBLIMAZE (PF)) injection 100 mcg (100 mcg Slow IV Push Given 11/18/23 0616) NaCl 0.9% (NS) IV infusion 1,000 mL (0 mL Intravenous Stopped 11/18/23 1015) proMETHazine (PHENERGAN) 12.5 mg in NS 50 mL IV piggyback (CNR) (0 mg IV Piggyback Stopped 11/18/23 0833) iopamidol (ISOVUE 370-500 mL) injection 100 mL (100 mL Intravenous Given 11/18/23 0845) ketorolac (TORADOL) injection 30 mg (30 mg Slow IV Push Given 11/18/23 0909) famotidine (PEPCID (PF)) injection 20 mg (20 mg Slow IV Push Given 11/18/23 0909) morpHINE (4 mg/mL) injection 4 mg (4 mg Slow IV Push Given 11/18/23 1034) proMETHazine (PHENERGAN) 12.5 mg in NS 50 mL IV piggyback (CNR) (0 mg IV Piggyback Stopped 11/18/23 1049) Results: Labs Reviewed COMP. METABOLIC PANEL (25165) - Abnormal; Notable for the following components: Result Value BUN 6 (*) GLUCOSE 122 (*) All other components within normal limits CBC WITH DIFF - Abnormal; Notable for the following components: MCV 100.2 (*) MCH 32.9 (*) RDW-SD 51.3 (*) MPV 9.3 (*) GRAN MAT x10 3 (ANC) 7.18 (*) All other components within normal limits URINALYSIS - Abnormal; Notable for the following components: SP GRAVITY >1.050 (*) KETONES 20 mg/dL (*) UROBILIN 4.0 mg/dL (*) LEUK GIA 25/uL (*) MUCOUS Slight (*) All other components within normal limits LIPASE - Normal TEST, SERUM Narrative: Less than 10 IU/L. If low titer or ectopic is suspected, resubmit specimen in 48-72 hours. US OVARY TORSION Final Result No evidence of ovarian torsion. Recommend follow-up pelvic ultrasound in 8-12 weeks regarding the right ovarian cystic lesion. CT ABDOMEN PELVIS W CONTRAST Final Result 1. No acute findings of the abdomen or pelvis. Procedures: Procedures Additional Notes: ED Course as of 11/18/23 1245 Sun Nov 18, [address] findings.Bilateral ovarian cysts >5cm. Adding US to assess for torsion. Nominal improvement of pain, nausea and vomiting. Additional symptomatic medications added. [RK] ED Course User Index [RK] Kelly Simms MD Diagnosis/Impression as of 11/18/23 1245 Nausea and vomiting, unspecified vomiting type Abdominal pain, unspecified abdominal location Cysts of both ovaries Medical Decision Making Primary impression: nausea with vomiting Secondary impression: abdominal pain, bilateral large ovarian cysts without torsion Differential Diagnoses, including but not limited to: electrolyte / glucose abnl, anemia, LUIS EDUARDO, cholecystitis, gastritis, pancreatitis, appendicitis, diverticulitis, ovarian cysts, torsion, neoplasm Problems Addressed: Abdominal pain, unspecified abdominal location: acute illness or injury Cysts of both ovaries: acute illness or injury Nausea and vomiting, unspecified vomiting type: acute illness or injury Amount and/or Complexity of Data Reviewed Independent Historian: Details: self Labs: ordered. Decision-making details documented in ED Course. Radiology: ordered. Decision-making details documented in ED Course. ECG/medicine tests: Details: N/a Discussion of management or test interpretation with external provider(s): N/a Risk Prescription drug management. Parenteral controlled substances. Risk Details: Recurrent dosing of IV fluids, pain medication, antiemetics in ED. Findings and plan discussed with patient. No acute critical exam findings. Bilateral ovarian cysts noted. Will benefit from follow-up exam, imaging. Recommended and offered hospitalization for ongoing nausea with vomiting. She declines hospitalization. Prefers treatment at home. She appears to have appropriate medical decision making capability. [employer] clinic referral placed. Disposition: Discharged Home Social Determinants of Health: None ED Disposition ED Disposition Disch - Home Condition Stable Comment -- T [facility] 2023-11-18 07:14:03 Patient report given to Crispin GALVAN T [facility] 2023-11-18 05:26:10 Pt presents to ED with c/o vomiting 2 days. Pt states she also has pain in the top of her stomach. Pt rates pain 9/10 in abdomen No meds [employer] LMP: couple weeks ago. T Lisha Spear RN [facility] 2023-11-18 05:21:00 [facility] Emergency Department Note Patient Name: Lanre Bales Date of : 1995 28 year old female Treatment Room: TX5/TX5 Primary Care Physician: Jess Munson Patient Escorted by: Family [5] Mode of Arrival: Personal means [1] EMS Treatment Prior to ED Arrival: [employer] treatment: None Travel and Exposure Screening: Symptoms Does patient have any of these symptoms?: (not recorded) Exposure Screening Has patient had contact with someone with a communicable disease in the last month?: (not recorded) Diseases exposed to:: (not recorded) Is Patient ?: (not recorded) Exposure Date: (not recorded) Chief Complaint: Chief Complaint Patient presents with Abdominal Pain Vomiting X 2 days History of Present Illness: Lanre Bales is a 28 year old female who presents to ED with epigastric pain, N/V X 2 days. No diarrhea. No fever or chills. No sick contacts. Vomitus consists of digested food materials. Pt has not taken any rx for her symptoms and reports that she is unable to keep down anything. Pt reports that she vomites about six to seven times per day LNMP said to be a few weeks ago History provided by: Significant other and patient customer care associate used: No Abdominal Pain Pain location: Epigastric Pain quality: sharp Pain radiates to: Does not radiate Pain severity: Severe Onset quality: Gradual Duration: 2 days Timing: Sporadic Progression: Worsening Chronicity: New Context: alcohol use Context: not awakening from sleep, not diet changes, not eating, not laxative use, not medication withdrawal, not recent illness, not recent travel, not retching, not sick contacts, not suspicious food intake and not trauma Relieved by: None tried Worsened by: Nothing Ineffective treatments: None tried Associated symptoms: anorexia, nausea and vomiting Associated symptoms: no chills, no constipation, no cough, no diarrhea, no dysuria, no fatigue, no fever, no flatus, no hematemesis, no hematochezia, no hematuria, no melena, no shortness of breath and no sore throat Risk factors: alcohol abuse and obesity Risk factors: no aspirin use, not elderly, has not had multiple surgeries, no NSAID use and no recent hospitalization Past Medical History/Immunizations: Past Medical History: Diagnosis Date Endometriosis Papanicolaou smear of cervix with low grade squamous intraepithelial lesion (LGSIL) 07/06/2021 Tetrahydrocannabinol (THC) use disorder, mild, abuse 06/28/2021 Tetanus received in last 5 years: Unknown Allergies: Allergies Allergen Reactions Reglan [Metoclopramide] Extra pyramidal effects Eggs [Egg] Unknown - See comments Past Social History: Tobacco Use Former Smokeless Tobacco: Never used smokeless tobacco. Comments: marijuana,no nicotine stopped for Alcohol Use Not Currently. Drug Use Not Currently; Marijuana. Comments: stopped for Sexual Activity Sexually active; Partners: Male; Control/Protection: None. Comments: last sexual intercourse 01/16/2022 Past Surgical History: History reviewed. No pertinent surgical history. Review of Systems: Review of Systems Constitutional: Negative. Negative for chills, fatigue and fever. HENT: Negative. Negative for sore throat. Eyes: Negative. Respiratory: Negative. Negative for cough and shortness of breath. Breasts: Negative. Cardiovascular: Negative. Gastrointestinal: Positive for abdominal pain, anorexia, nausea and vomiting. Negative for constipation, diarrhea, flatus, hematemesis, hematochezia and melena. Genitourinary: Negative. Negative for dysuria and hematuria. Musculoskeletal: Negative. Skin: Negative. Neurological: Negative. Psychiatric/Behavioral: Negative. All other systems reviewed and are negative. Endocrine: Endocrine negative Physical Exam: ED Triage Vitals Weight 11/18/23526 122.5 kg (270 lb) Actual or estimated -- Height 11/18/23526 1.651 m (5' 5") BP 11/18/23527 (!) 164/100 Pulse 11/18/23527 119 Resp 11/18/23527 18 Temp 11/18/23527 36.7 ?C (98.1 ?F) Temp src -- SpO2 11/18/23527 99 % Measured on 11/18/23527 Room air Physical Exam Vitals and nursing note reviewed. Constitutional: General: She is not in acute distress. Appearance: Normal appearance. She is well-developed. She is obese. She is not ill-appearing, toxic-appearing or diaphoretic. HENT: Head: Normocephalic and atraumatic. Nose: Nose normal. No congestion or rhinorrhea. Mouth/Throat: Mouth: Mucous membranes are dry. Pharynx: Oropharynx is clear. No oropharyngeal exudate or posterior oropharyngeal erythema. Eyes: General: No scleral icterus. Right eye: No discharge. Left eye: No discharge. Extraocular Movements: Extraocular movements intact. Conjunctiva/sclera: Conjunctivae normal. Pupils: Pupils are equal, round, and reactive to light. Neck: Thyroid: No thyromegaly. Cardiovascular: Rate and Rhythm: Normal rate and regular rhythm. Pulses: Normal pulses. Heart sounds: Normal heart sounds. No murmur heard. Pulmonary: Effort: Pulmonary effort is normal. No respiratory distress. Breath sounds: Normal breath sounds. No stridor. No wheezing, rhonchi or rales. Chest: Chest wall: No tenderness. Abdominal: General: Bowel sounds are normal. There is no distension. Palpations: Abdomen is soft. Tenderness: There is abdominal tenderness. There is no right CVA tenderness, left CVA tenderness, guarding or rebound. Musculoskeletal: General: No swelling, tenderness, deformity or signs of injury. Normal range of motion. Cervical back: Normal range of motion and neck supple. No rigidity or tenderness. Right lower leg: No edema. Left lower leg: No edema. Lymphadenopathy: Cervical: No cervical adenopathy. Skin: General: Skin is warm and dry. Capillary Refill: Capillary refill takes less than 2 seconds. Coloration: Skin is not jaundiced or pale. Findings: No bruising, erythema, lesion or rash. Neurological: General: No focal deficit present. Mental Status: She is alert and oriented to person, place, and time. Cranial Nerves: No cranial nerve deficit. Sensory: No sensory deficit. Motor: No weakness or abnormal muscle tone. Coordination: Coordination normal. Gait: Gait normal. Deep Tendon Reflexes: Reflexes normal. Psychiatric: Behavior: Behavior normal. Thought Content: Thought content normal. Judgment: Judgment normal. Radiology: No orders to display Lab Results: Lab Results COMP. METABOLIC PANEL (52288) - Abnormal Result Value Ref Range NA 138 135 - 145 mmol/L K 3.5 3.5 - 5.0 mmol/L CL 106 98 - 108 mmol/L CO2 TOTAL 23 23 - 31 mmol/L AGAP 9 2 - 16 BUN 6 (*) 7 - 23 mg/dL GLUCOSE 122 (*) 70 - 110 mg/dL CREATININE 0.61 0.50 - 1.04 mg/dL TOTAL BILI 0.6 0.1 - 1.1 mg/dL CALCIUM 9.0 8.6 - 10.6 mg/dL T PROTEIN 8.1 6.3 - 8.2 g/dL ALBUMIN 4.4 3.5 - 5.0 g/dL ALK PHOS 85 34 - 122 U/L ALTv 20 5 - 35 U/L AST(SGOT) 19 13 - 40 U/L eGFR 125.8 mL/min/1.73m2 CBC WITH DIFF - Abnormal WBC 9.80 4.30 - 11.10 10*3/?L RBC 4.50 3.93 - 5.25 10*6/?L HGB 14.8 11.6 - 15.0 g/dL HCT 45.1 35.7 - 45.2 % MCV 100.2 (*) 80.6 - 95.5 fL MCH 32.9 (*) 25.9 - 32.8 pg MCHC 32.8 31.6 - 35.1 g/dL RDW-SD 51.3 (*) 39.0 - 49.9 fL RDW-CV 13.7 12.0 - 15.5 % PLT 349 166 - 358 10*3/?L MPV 9.3 (*) 9.5 - 12.9 fL NRBC/100 WBC 0.0 0.0 - 10.0 /100 WBCs NRBC x10 3 <0.01 10*3/?L GRAN MAT (NEUT) % 73.3 % IMM GRAN % 0.40 % LYMPH % 19.0 % MONO % 4.8 % EOS % 2.0 % BASO % 0.5 % GRAN MAT x10 3 (ANC) 7.18 (*) 1.88 - 7.09 10*3/uL IMM GRAN x10 3 0.04 0.00 - 0.06 10*3/uL LYMPH x10 3 1.86 1.32 - 3.29 10*3/uL MONO x10 3 0.47 0.33 - 0.92 10*3/uL EOS x10 3 0.20 0.03 - 0.39 10*3/uL BASO x10 3 0.05 0.01 - 0.07 10*3/uL LIPASE - Normal LIPASE 40 0 - 220 U/L TEST, SERUM PREG SERUM Negative URINALYSIS POCT TEST Orders and Treatments: Orders Placed This Encounter Procedures CT ABDOMEN PELVIS W CONTRAST Complete Metabolic Panel CBC with Differential Lipase, Serum Urinalysis POCT Test Test, Serum Orders Placed This Encounter Medications sodium chloride (NS) injection 5 mL ondansetron (ZOFRAN (PF)) injection 8 mg fentanyl PF (SUBLIMAZE (PF)) injection 100 mcg NaCl 0.9% (NS) IV infusion 1,000 mL proMETHazine (PHENERGAN) 12.5 mg in NS 50 mL IV piggyback (CNR) First Provider Eval: ED Events Date/Time Event User Comments 11/18/23 05 Medical Screening Begins CARO BAUER MD -- 11/18/23 05 First Provider Evaluation CARO BAUER MD -- ED COURSE ED Course as of 11/18/23 1021 Sun Nov 18, [address] findings.Bilateral ovarian cysts >5cm. Adding US to assess for torsion. Nominal improvement of pain, nausea and vomiting. Additional symptomatic medications added. [RK] ED Course User Index [RK] Kelly Simms MD Diagnosis/Impression as of 11/18/23 1021 Nausea and vomiting, unspecified vomiting type Abdominal pain, unspecified abdominal location Cysts of both ovaries Procedures: Procedures MDM: Medical Decision Making Amount and/or Complexity of Data Reviewed Labs: ordered. Radiology: ordered. Risk Prescription drug management. Parenteral controlled substances. Flowsheet Documentation: 7:35 AM Turned over to Dr Simms at shift change pending review of labs, imaging and for final disposition Scoring Tools: No data recorded Disposition/Condition: ED Disposition None Discharge Medications: Patient's Medications START taking these medications No medications on file CONTINUE taking these medications which have NOT CHANGED ERGOCALCIFEROL, VITAMIN D2, (VITAMIN D2) 1,250 MCG (50,000 UNIT) CAPSULE Take 1 capsule by mouth weekly. PHENTERMINE 37.5 MG TABLET Take 1 tablet by mouth daily with breakfast. TRAZODONE 100 MG TABLET Take 1 tablet by mouth at bedtime. ZOLPIDEM 5 MG TABLET Take 1 tablet by mouth at bedtime as needed for Insomnia. START taking Modified Medications as Prescribed No medications on file STOP taking these medications No medications on file Follow-up: Electronically signed by: Caro Bauer MD 11/18/23 2165 [facility] 2023-11-16 14:03:54 Images from the original note were not included. Requested Renewals zolpidem 5 mg tablet Sig: Take 1 tablet by mouth at bedtime as needed for Insomnia. Disp: 30 tablet Refills: 0 Start: 11/16/2023 Class: eRX For: Primary insomnia Last ordered: 4 weeks ago (10/19/2023) by Jess Musnon MD Provider Review Required Eqacxf6811/16/2023 01:53 PM Protocol Details This refill cannot be delegated Valid encounter within last 12 months To be filled at: [facility]/pharmacy #[id number] 08-06-2023 NOV N/A Sabi Corrales MA [facility] 2023-11-16 14:03:07 Images from the original note were not included. Requested Renewals phentermine 37.5 mg tablet Sig: Take 1 tablet by mouth daily with breakfast. Disp: 30 tablet Refills: 0 Start: 11/15/2023 Class: eRX Non-formulary For: Class 3 severe obesity due to excess calories with serious comorbidity and body mass index (BMI) of 50.0 to 59.9 in adult; BMI 50.0-59.9, adult Last ordered: 1 month ago (10/16/2023) by Jess Munson MD Off-Protocol Svqznt1111/16/2023 01:48 PM Protocol Details Medication not assigned to a protocol, forward to provider. Valid encounter within last 12 months To be filled at: [facility] [address] [place] [address] 08-06-2023 NOV N/A Sabi Corrales MA [facility] 2023-11-16 13:49:19 Patient requesting a refill of:zolpidem Medication: zolpidem Dose: 5 mg Route: refill Quantity: 30 Pharmacy: [facility] [address] [place] [id number] Last appt.: 08/05 Next appt.: na Would like to speak with clinic about getting this done today [facility] 2023-11-16 13:46:24 Lanre Bales is a 28 year old female is calling to get an update on refill request. Pt wants this [facility] 11:34:30 Images from the original note were not included. Routed to provider for review. Unable to refill per ambulatory refill guidelines. Notes: phentermine 37.5 mg tablet Sig: Take 1 tablet by mouth daily with breakfast. Disp: 30 tablet Refills: 0 Start: 11/15/2023 Class: eRX Non-formulary For: Class 3 severe obesity due to excess calories with serious comorbidity and body mass index (BMI) of 50.0 to 59.9 in adult; BMI 50.0-59.9, adult Last ordered: 1 month ago (10/16/2023) by Jess Munson MD Off-Protocol Uufsuk1211/15/2023 11:02 AM Protocol Details Medication not assigned to a protocol, forward to provider. Valid encounter within last 12 months To be filled at: [facility] [address] [place] [address] Last Refilled: 10/16/23 Recent Visits Date Type Provider Dept 08/06/23 Office Visit Jess Munson MD [facility] 01/24/23 Office Visit Jess Munson MD [facility] 12/25/22 Office Visit Jess Munson MD [facility] Showing recent visits within past 540 days with a meds authorizing provider and meeting all other requirements Future Appointments No visits were found meeting these conditions. Showing future appointments within next 150 days with a meds authorizing provider and meeting all other requirements Dhara Corral MA [facility] 2023-11-08 15:30:00 DC instructions and prescription for Zofran ODT reviewed with patient. She will fill prescription and take as directed. She will follow up with her PCP in 3-5 days as instructed. She will return to the ED if her symptoms persist or worsen. She was Dc'd ambulatory-alert and in no distress [facility] 2023-11-08 13:02:16 Report received and care assumed. T [facility] 2023-11-08 12:50:54 Nurse Report Report given to COLE Miranda. Chief complaint, assessment findings, infusion verify and orders reviewed. Plan of care discussed with both nurses. Judy Marroquin RN Judy Marroquin RN [facility] 2023-11-08 10:15:50 Vomiting x3 days. Lucille Lester RN [facility] 2023-10-18 13:34:30 Images from the original note were not included. Notes: Patient requesting refill, please review. Abbey Goel MA 10/18/2023 1:35 PM Last Refilled: 09/13/23 Recent Visits Date Type Provider Dept 08/06/23 Office Visit Jess Munson MD [facility] 01/24/23 Office Visit Jess Munson MD [facility] 12/25/22 Office Visit Jess Munson MD [facility] Showing recent visits within past 540 days with a meds authorizing provider and meeting all other requirements Future Appointments No visits were found meeting these conditions. Showing future appointments within next 150 days with a meds authorizing provider and meeting all other requirements Requested Renewals zolpidem 5 mg tablet Sig: Take 1 tablet by mouth at bedtime as needed for Insomnia. Disp: 30 tablet Refills: 0 Start: 10/16/2023 Class: eRX For: Primary insomnia Last ordered: 1 month ago (09/13/2023) by Jess Munson MD Provider Review Required Zhdiub6110/18/2023 12:27 PM Protocol Details This refill cannot be delegated Valid encounter within last 12 months To be filled at: [facility] [address] [place] [address] Abbey Goel MA [facility] 2023-10-18 12:25:18 Lanre Bales is a 28 year old female and pt is calling back to check on her refill request. Would like to know when it will be refilled please advise. zolpidem 5 mg tablet [facility] [address] [place] [id number] [facility] 2023-10-16 13:12:14 Images from the original note were not included. Requested Renewals zolpidem 5 mg tablet Sig: Take 1 tablet by mouth at bedtime as needed for Insomnia. Disp: 30 tablet Refills: 0 Start: 10/16/2023 Class: eRX For: Primary insomnia Last ordered: 1 month ago (09/13/2023) by Jess Munson MD Provider Review Required Qsksai4010/16/2023 12:10 PM Protocol Details This refill cannot be delegated Valid encounter within last 12 months To be filled at: [facility] [address] [place] [address] 08-06-2023 NOV N/A Sabi Corrales MA [facility] 2023-10-15 13:12:38 Images from the original note were not included. Requested Renewals phentermine 37.5 mg tablet Sig: Take 1 tablet by mouth daily with breakfast. Disp: 30 tablet Refills: 0 Start: 10/15/2023 Class: eRX Non-formulary For: Class 3 severe obesity due to excess calories with serious comorbidity and body mass index (BMI) of 50.0 to 59.9 in adult; BMI 50.0-59.9, adult Last ordered: 1 month ago (09/13/2023) by Jess Munson MD Off-Protocol Zxdhle4110/15/2023 01:05 PM Protocol Details Medication not assigned to a protocol, forward to provider. Valid encounter within last 12 months ergocalciferol, vitamin d2, (VITAMIN D2) 1,250 mcg (50,000 unit) capsule Possible duplicate: Hover to review recent actions on this medication Sig: Take 1 capsule by mouth weekly. Disp: 12 capsule Refills: 0 Start: 10/15/2023 Class: eRX For: Vitamin D deficiency Last ordered: 1 week ago (10/03/2023) by Jess Munson MD Off-Protocol Vdmdfg8110/15/2023 01:05 PM Protocol Details Medication not assigned to a protocol, forward to provider. Valid encounter within last 12 months To be filled at: [facility] [address] [place] [address] 08-06-2023 NOV N/A Sabi Corrales MA [facility] 2023-10-02 08:26:45 Images from the original note were not included. Last OV:01/24/23 with eJss Munson MD Last Refill:12/26/22 prescribed by Jess Munson MD Last Labs Pertaining to Med:08/06/2023 Future Appt: Future Appointments Provider Department Dept Phone 2023 9:40 AM Jess Munson MD [facility], [place] [phone] Requested Renewals ergocalciferol, vitamin d2, (VITAMIN D2) 1,250 mcg (50,000 unit) capsule Sig: Take 1 capsule by mouth weekly. Disp: 12 capsule Refills: 0 Start: 10/01/2023 Class: eRX For: Vitamin D deficiency Last ordered: 9 months ago (12/26/2022) by Jess Munson MD Off-Protocol Mckehl2210/01/2023 08:53 PM Protocol Details Medication not assigned to a protocol, forward to provider. Valid encounter within last 12 months To be filled at: [facility]/pharmacy #[id number] Abbey Goel MA [facility] 2023-09-13 08:20:32 Images from the original note were not included. Requested Renewals phentermine 37.5 mg tablet Sig: Take 1 tablet by mouth daily with breakfast. Disp: 30 tablet Refills: 0 Start: 09/12/2023 Class: eRX Non-formulary For: Class 3 severe obesity due to excess calories with serious comorbidity and body mass index (BMI) of 50.0 to 59.9 in adult; BMI 50.0-59.9, adult Last ordered: 1 month ago (08/06/2023) by Jess Munson MD Off-Protocol Rwpumv0809/12/2023 06:49 PM Protocol Details Medication not assigned to a protocol, forward to provider. Valid encounter within last 12 months zolpidem 5 mg tablet Sig: Take 1 tablet by mouth at bedtime as needed for Insomnia. Disp: 30 tablet Refills: 0 Start: 09/12/2023 Class: eRX For: Primary insomnia Last ordered: 1 month ago (08/06/2023) by Jess Munson MD Provider Review Required Qydpap4509/12/2023 06:49 PM Protocol Details This refill cannot be delegated Valid encounter within last 12 months To be filled at: [address] 08-06-2023 NOV N/A Sabi Corrales MA [facility] 2023-08-06 14:30:00 Images from the original note were not included. Venipuncture collection performed by clean technique on the right anticubitus. Total of 1 attempts were made. Slight pressure and a bandage/dressing were applied to the site(s). The patient experienced no complications. The following specimens were processed according to instructions and sent to [facility] laboratories per lab order on 08/06/2023 : LT BLUE SST 2 RED LAV 2 PPT DK GREEN (LiHep) 1 DK GREEN (SodH) HART DK BLUE (K2) 1 DK BLUE (S) ACD Blood Culture NIPT/NTD [facility] 2023-08-01 12:29:00 Attempted to reach patient to schedule with LORRAINE radford. Elin Trivedi [facility] 2023-07-31 18:24:47 You can schedule an appointment with me in person and we can review other options. Dr. Dias is out of office till next week. [facility] 2023-07-31 16:57:43 Images from the original note were not included. Routed to provider for review. Unable to refill per ambulatory refill guidelines. Notes: phentermine 37.5 mg tablet Sig: Take 1 tablet by mouth daily with breakfast. Disp: 30 tablet Refills: 0 Start: 07/31/2023 Class: eRX Non-formulary For: Class 3 severe obesity due to excess calories with serious comorbidity and body mass index (BMI) of 50.0 to 59.9 in adult; BMI 50.0-59.9, adult Last ordered: 2 months ago (05/29/2023) by Jess Munson MD Patient comment: Attempting this medicine again after two months with more diet and lifestyle changes to get best results Off-Protocol Gawnpt9907/31/2023 02:47 PM Protocol Details Medication not assigned to a protocol, forward to provider. Valid encounter within last 12 months To be filled at: [facility] [address] [place] [address] Last Refilled: 05/29/2023 Recent Visits Date Type Provider Dept 01/24/23 Office Visit Jess Munson MD [facility] 12/25/22 Office Visit Jess Munson MD [facility] Showing recent visits within past 540 days with a meds authorizing provider and meeting all other requirements Future Appointments Date Type Provider Dept 08/13/23 Appointment Jess Munson MD [facility] Showing future appointments within next 150 days with a meds authorizing provider and meeting all other requirements Dhara Corral MA [facility] 2023-07-25 08:53:56 Images from the original note were not included. Requested Renewals traZODone 100 mg tablet Sig: Take 1 tablet by mouth at bedtime. Disp: 90 tablet Refills: 0 Start: 07/25/2023 Class: eRX Non-formulary For: Primary insomnia Last ordered: 3 months ago (04/23/2023) by Jess Munson MD Psychiatry: Antidepressants Awhlbi2107/25/2023 08:38 AM Protocol Details Manual Review: Verify no changes in dose in the last 3 months Valid encounter within last 12 months To be filled at: [facility]/pharmacy #[id number] AT [facility] 01-24-2023 NOV N/A Sabi Corrales MA [facility] 2023-07-25 08:38:07 Images from the original note were not included. [facility] 2023-06-21 12:29:19 Patient dc home. Follow up with pcp. Verbalized understanding. Prosper Segovia RN [facility] 2023-06-21 11:23:37 Pt arrived via private car with c/o dysuria x3 days Kelly Rolon RN [facility] 2023-06-21 11:14:00 [facility] Emergency Department Note Patient Name: Lanre Bales Date of : 1995 27 year old female Treatment Room: Room/bed info not found Primary Care Physician: Jess Munson Patient Escorted by: Self [9] Mode of Arrival: Personal means [1] EMS Treatment Prior to ED Arrival: Travel and Exposure Screening: Symptoms Does patient have any of these symptoms?: (not recorded) Exposure Screening Has patient had contact with someone with a communicable disease in the last month?: (not recorded) Diseases exposed to:: (not recorded) Is Patient ?: (not recorded) Exposure Date: (not recorded) Chief Complaint: Chief Complaint Patient presents with DYSURIA History of Present Illness: The patient presents from home for evaluation for 3 days of dysuria as well as right-sided low back pain. No nausea or vomiting. No fevers or chills. No medications for her symptoms. Her last menstrual period was 2 weeks ago. No history of diabetes. Here for evaluation. Past Medical History/Immunizations: Past Medical History: Diagnosis Date Endometriosis Papanicolaou smear of cervix with low grade squamous intraepithelial lesion (LGSIL) 07/06/2021 Tetrahydrocannabinol (THC) use disorder, mild, abuse 06/28/2021 Allergies: Allergies Allergen Reactions Reglan [Metoclopramide] Extra pyramidal effects Eggs [Egg] Unknown - See comments Past Social History: Tobacco Use Former Smokeless Tobacco: Never used smokeless tobacco. Comments: marijuana,no nicotine stopped for Alcohol Use Not Currently. Drug Use Not Currently; Marijuana. Comments: stopped for Sexual Activity Sexually active; Partners: Male; Control/Protection: None. Comments: last sexual intercourse 01/16/2022 Past Surgical History: History reviewed. No pertinent surgical history. Review of Systems: Review of Systems Constitutional: Negative for chills and fever. Respiratory: Negative for cough and shortness of breath. Cardiovascular: Negative for chest pain. Gastrointestinal: Negative for abdominal pain, nausea and vomiting. Genitourinary: Positive for dysuria and flank pain. Musculoskeletal: Negative for arthralgias, neck pain and neck stiffness. Skin: Negative for wound. Neurological: Negative for dizziness. Psychiatric/Behavioral: Negative for agitation. Endocrine: Negative for goiter. Physical Exam: ED Triage Vitals [06/21/23 1124] Weight 127 kg (280 lb) Actual or estimated Estimated by patient/family report Height 1.651 m (5' 5") BP (!) 156/98 Pulse 94 Resp 16 Temp 37.2 ?C (99 ?F) Temp source Oral SpO2 100 % Measured on Room air Physical Exam Vitals and nursing note reviewed. Constitutional: Appearance: Normal appearance. She is obese. HENT: Head: Normocephalic and atraumatic. Cardiovascular: Rate and Rhythm: Normal rate and regular rhythm. Pulses: Normal pulses. Pulmonary: Effort: Pulmonary effort is normal. No respiratory distress. Abdominal: General: There is no distension. Palpations: Abdomen is soft. There is no mass. Tenderness: There is no abdominal tenderness. There is no guarding or rebound. Hernia: No hernia is present. Musculoskeletal: General: Normal range of motion. Cervical back: Normal range of motion and neck supple. Skin: General: Skin is warm and dry. Neurological: General: No focal deficit present. Mental Status: She is alert and oriented to person, place, and time. Radiology: No orders to display Lab Results: Lab Results URINALYSIS - Abnormal Result Value Ref Range APPEARANCE Cloudy (*) Clear COLOR Yellow Yellow PH 7.0 4.8 - 8.0 SP GRAVITY 1.013 1.003 - 1.030 GLU U QUAL Normal Normal BLOOD 2+ (*) Negative KETONES Negative Negative PROTEIN 100 mg/dL (*) Negative UROBILIN Normal Normal BILIRUBIN Negative Negative NITRITE Negative Negative LEUK GIA 250/uL (*) Negative RBC/HPF 119 (*) 0 - 3 HPF WBC/HPF 173 (*) 0 - 5 HPF BACTERIA Few (*) Negative MUCOUS Slight (*) Negative LPF SQ EPITH 13 HPF WBC CLUMPS 1 <=1 HPF TRANS EPI <1 <=1 HPF CHLOÉ EPITH 3 (*) <=1 HPF POCT TEST - Normal POCT PREG Negative On board controls acceptable with C Line Yes POCT PREG LOT # [id number] POCT PREG TEST DATE 03/28/2024 EKG: If EKG completed, see Procedure Note. Orders and Treatments: Orders Placed This Encounter Procedures POCT TEST URINALYSIS Orders Placed This Encounter Medications sulfamethoxazole-trimethoprim 800-160 mg per tablet First Provider Eval: ED Events Date/Time Event User Comments 06/21/23 1118 Medical Screening Begins BONITA TRIVEDI DO -- 06/21/23 1118 First Provider Evaluation BONITA TRIVEDI DO -- ED COURSE Diagnosis/Impression as of 06/21/23 1216 Dysuria Acute cystitis without hematuria Procedures: Procedures MDM: Medical Decision Making The patient presents from home for evaluation for 3 days of dysuria as well as right-sided low back pain. No nausea or vomiting. No fevers or chills. No medications for her symptoms. Her last menstrual period was about 2 weeks ago. Vital signs are stable in the ER. The patient is obese. Her abdomen is soft and nontender on examination. She has no CVA tenderness bilaterally. Will check a UPT as well as a urinalysis to evaluate for possible UTI versus pyelonephritis. Anticipate discharge home later. 1215 -the patient is doing well here in the ER. Her UPT is negative. Her urinalysis shows an infection. Will treat the patient with antibiotics. She remained stable here in the ER and is okay for discharge home with PCP follow-up. Problems Addressed: Acute cystitis without hematuria: acute illness or injury Dysuria: acute illness or injury Amount and/or Complexity of Data Reviewed Labs: ordered. Decision-making details documented in ED Course. Risk Prescription drug management. Flowsheet Documentation: Scoring Tools: No data recorded Disposition/Condition: ED Disposition ED Disposition Disch - Home Condition Stable Comment -- Discharge Medications: Patient's Medications START taking these medications SULFAMETHOXAZOLE-TRIMETHOPRIM 800-160 MG PER TABLET Take 1 tablet by mouth every 12 (twelve) hours. CONTINUE taking these medications which have NOT CHANGED ERGOCALCIFEROL, VITAMIN D2, (VITAMIN D2) 1,250 MCG (50,000 UNIT) CAPSULE Take 1 capsule by mouth weekly. PHENTERMINE 37.5 MG TABLET Take 1 tablet by mouth daily with breakfast. TRAZODONE 100 MG TABLET Take 1 tablet by mouth at bedtime. ZOLPIDEM 5 MG TABLET Take 1 tablet by mouth at bedtime as needed for Insomnia. START taking Modified Medications as Prescribed No medications on file STOP taking these medications No medications on file Follow-up: Electronically signed by: Bonita Trivedi DO 06/21/23 1216 [facility] 2023-06-12 14:39:19 Call placed to pt to discuss Loaded [employer] message. Tiff Thomason RN [facility] 2023-05-29 14:42:38 Images from the original note were not included. Notes: phentermine 37.5 mg tablet Sig: Take 1 tablet by mouth daily with breakfast. Disp: 30 tablet Refills: 0 Start: 05/29/2023 Class: eRX Non-formulary For: Class 3 severe obesity due to excess calories with serious comorbidity and body mass index (BMI) of 50.0 to 59.9 in adult; BMI 50.0-59.9, adult Last ordered: 1 month ago (04/12/2023) by Jess Munson MD Off-Protocol [id number]/29/2023 02:20 PM Protocol Details Medication not assigned to a protocol, forward to provider. Valid encounter within last 12 months To be filled at: [facility] [address] [place] [address] - [address] [place] [address] Last Refilled: 04/12/23 Recent Visits Date Type Provider Dept 01/24/23 Office Visit Jess Munson MD [facility] 12/25/22 Office Visit Jess Munson MD [facility] Family [facility] Showing recent visits within past 540 days with a meds authorizing provider and meeting all other requirements Future Appointments Date Type Provider Dept 06/06/23 Appointment Jess Munson MD [facility] Family Medicine Showing future appointments within next 150 days with a meds authorizing provider and meeting all other requirements Dhara Corral MA [facility] 2023-04-23 10:14:44 Images from the original note were not included. Routed to provider for review. Unable to refill per ambulatory refill guidelines. Notes: traZODone 100 mg tablet Sig: Take 1 tablet by mouth at bedtime. Disp: 90 tablet Refills: 0 Start: 04/23/2023 Class: eRX Non-formulary For: Primary insomnia Last ordered: 2 months ago (01/24/2023) by Jess Munson MD Psychiatry: Antidepressants [id number]/23/2023 09:19 AM Protocol Details Manual Review: Verify no changes in dose in the last 3 months Valid encounter within last 12 months To be filled at: [facility]/pharmacy #[id number] [place], [place] - [address] Last Refilled: 01/24/2023 Recent Visits Date Type Provider Dept 01/24/23 Office Visit Jess Munson MD [facility] Family Medicine 12/25/22 Office Visit Jess Munson MD [facility] Family Medicine Showing recent visits within past 540 days with a meds authorizing provider and meeting all other requirements Future Appointments Date Type Provider Dept 04/25/23 Appointment Jess Munson MD [facility] Family Medicine Showing future appointments within next 150 days with a meds authorizing provider and 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 Requested Renewals phentermine 37.5 mg tablet Sig: Take 1 tablet by mouth daily with breakfast. Disp: 30 tablet Refills: 0 Start: 04/11/2023 Class: eRX Non-formulary For: Class 3 severe obesity due to excess calories with serious comorbidity and body mass index (BMI) of 50.0 to 59.9 in adult; BMI 50.0-59.9, adult Last ordered: 1 month ago (03/02/2023) by Jess Munson MD Off-Protocol [id number]/11/2023 02:55 PM Protocol Details Medication not assigned to a protocol, forward to provider. 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 Last OV: 01/24/2023 with Jess Munson Last Refill: 02/20/2023 prescribed by Jess Munson Last Labs Pertaining to Med: N/A Future Appt: Future Appointments Provider Department Dept Phone 04/25/2023 3:00 PM Jess Munson MD [facility], [place] [phone] Routed to provider for review. Unable to refill per ambulatory refill guidelines. zolpidem 5 mg tablet Sig: Take 1 tablet by mouth at bedtime as needed for Insomnia. Disp: 30 tablet Refills: 0 Start: 04/01/2023 Class: eRX For: Primary insomnia Last ordered: 1 month ago (02/20/2023) by Jess Munson MD Provider Review Required [id number]/01/2023 01:01 PM Protocol Details This refill cannot be delegated Valid encounter within last 12 months BANDING MACHINE OPERATOR Melissa Jimenez RN [facility] 2023-03-02 13:44:04 Images from the original note were not included. Requested Renewals phentermine 37.5 mg tablet Sig: Take 1 tablet by mouth daily with breakfast. Disp: 30 tablet Refills: 0 Start: 03/02/2023 Class: eRX Non-formulary For: Class 3 severe obesity due to excess calories with serious comorbidity and body mass index (BMI) of 50.0 to 59.9 in adult; BMI 50.0-59.9, adult Last ordered: 1 month ago (01/26/2023) by Jess Munson MD Off-Protocol [id number]/02/2023 01:27 PM Protocol Details Medication not assigned to a protocol, forward to provider. Valid encounter within last 12 months To be filled at: [facility] [address] [place] [address] 01-24-2023 NOV 04-25-2023 BANDING MACHINE OPERATOR Sabi Corrales MA [facility] 2023-02-19 20:36:52 Images from the original note were not included. Last OV: 01/24/2023 with Jess Munson Last Refill: 01/16/2023 prescribed by Jess Munson Last Labs Pertaining to Med: N/A Future Appt: Future Appointments Provider Department Dept Phone 04/25/2023 3:00 PM Jess Munson MD [facility] [place] [phone] Routed to provider for review. Unable to refill per ambulatory refill guidelines. zolpidem 5 mg tablet Sig: Take 1 tablet by mouth at bedtime as needed for Insomnia. Disp: 30 tablet Refills: 0 Start: 02/19/2023 Class: eRX For: Primary insomnia Last ordered: 1 month ago (01/16/2023) by Jess Munson MD Provider Review Required [id number]/19/2023 03:32 PM Protocol Details This refill cannot be delegated Valid encounter within last 12 months BANDING MACHINE OPERATOR Melissa Jimenez RN [facility]
--- NOTE | 2023-12-10 04:13 | EDPHYS ---
Physician Documentation [facility] Name: Robin Bernard Age: 28 yrs Sex: Female : 1995 Arrival Date: 12/10/2023 Time: 03:57 Bed 5 Private MD: ED Physician Jd Mariscal HPI: 12/09 04:14 This 28 yrs old Black Female presents to ER via Ambulatory with complaints of ms3 TONGUE/LIP PAIN, Nausea/Vomiting. 04:14 28-year-old female with past medical history of gastritis, insomnia [place] [facility] [place] after having multiple bouts of emesis 3 days prior. Patient states since then she has spots in her mouth that burn. She rates her discomfort a /10. Patient states her mouth pain is worse after sleeping with her mouth open. She denies any alleviating factors. 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 - Infectious Disease History:: Denies. - Social history:: Smoking status: Reported history of juuling and/or vaping. ROS: 04:14 Constitutional: Negative for fever, and chills. Cardiovascular: Negative for chest ms3 pain, and palpitations. 04:14 MS/Extremity: Negative for injury and deformity, Skin: Negative for injury, rash, and discoloration, 04:14 ENT: Positive for Mouth pain, Exam: 04:14 Constitutional: This is a well developed, well nourished patient who is awake, alert, ms3 and in no acute distress. Chest/axilla: Normal chest wall appearance and motion. Nontender with no deformity. Cardiovascular: Regular rate and rhythm with a normal S1 and S2. No gallops, murmurs, or rubs. Normal PMI, no JVD. No pulse deficits. Respiratory: Lungs have equal breath sounds bilaterally, clear to auscultation and percussion. No rales, rhonchi or wheezes noted. No increased work of breathing, no retractions or nasal flaring. Abdomen/GI: Soft, non-tender, with normal bowel sounds. No distension or tympany. No guarding or rebound. No evidence of tenderness throughout. 04:14 ENT: Mouth: Tongue: tender, White coating with ulceration 1 removed., Vital Signs: 04:12 BP 157 / 103; Pulse 109; Resp 18; Temp 98; Pulse Ox 100% ; Weight 121.56 kg; Height 5 vc1 ft. 5 in. ; Pain 6/10; 04:27 BP 132 / 98; Pulse 100; Resp 16; Pulse Ox 100% ; dd2 04:12 Body Mass Index 44.60 (121.56 kg, 165.1 cm) vc1 04:12 Pain Scale: Adult vc1 MDM: 04:11 Medical Screening Exam initiated ms3 04:14 Differential diagnosis: Thrush versus geographic tongue versus mouth pain. Data ms3 reviewed: vital signs, nurses notes, and as a result, I will discharge patient. I considered the following discharge prescriptions or medication management in the emergency department Medications were administered in the Emergency Department. See MAR. Counseling: I had a detailed discussion with the patient and/or guardian regarding the historical points, exam findings, and any diagnostic results supporting the discharge/admit diagnosis, the need for outpatient follow up, to return to the emergency department if symptoms worsen or persist or if there are any questions or concerns that arise at home. Special discussion: I discussed with the patient/guardian in detail that at this point there is no indication for admission to the hospital. It is understood, however, that if the symptoms persist or worsen the patient needs to return immediately for re-evaluation. ED course: Discussed treatment plan with patient. Patient to follow-up with Dr. Ojeda in 2 to 3 days. Patient understands and agrees with plan. All questions were answered. Return precautions discussed include worsening symptoms, or any other concerns. . Administered Medications: 04:18 Drug: Ondansetron Oral Disintegrating Tablet Oral Disintegrating Tablet 4 mg PO once dd2 Route: PO; 04:27 Follow up: Response: Medication administered at discharge. dd2 Disposition Summary: 12/10/23 04:12 Discharge Ordered Notes: Location: Home ms3 Condition: Stable ms3 Diagnosis - Mouth pain ms3 - Chronic Nausea ms3 Followup: ms3 - With: Armin Ojeda DDS - When: 1 - 2 days - Reason: Recheck today's complaints Followup: ms3 - With: Ruperto Hdz DO - When: 2 - 3 days - Reason: Recheck today's complaints Discharge Instructions: - Discharge Summary Sheet ms3 Forms: - Medication Reconciliation Form ms3 - Antibiotic Education ms3 - Prescription Opioid Use ms3 - Patient Portal Instructions ms3 - Leadership Thank You Letter ms3 Prescriptions: - ondansetron 4 mg Oral Tablet,disintegrating - take 1 tablet ORAL route every 8 hours for 3 days; 15 tablet; Refills: 0, ms3 Product Selection Permitted - Nystatin 100,000 unit/mL Oral suspension - take 5 milliliters ORAL route every 6 hours Swish and swallow; 120 milliliter; ms3 Refills: 0, Product Selection Permitted Signatures: Jd Mariscal DO DO ms3 Karina Vasquez RN RN vc1 MATI ZUÑIGA RN RN dd2
[2023-12-10] MEDS ORDERED: ONDANSETRON 4 MG (ODT) TAB ONE (04:17)
--- NOTE | 2023-12-10 04:29 | ER ---
Nurse's Notes [facility] Name: Robin Bernard Age: 28 yrs Sex: Female : 1995 Arrival Date: 12/10/2023 Time: 03:57 Bed 5 Private MD: Diagnosis: Mouth pain;Chronic Nausea Presentation: 12/09 04:12 Chief complaint: Patient states: I am nauseous and have some pain and cracks in my vc1 mouth. I have an appointment Sunday I just need something to help me get through the night. Coronavirus screen: Client denies travel out of the [place] in the last 14 days. At this time, the client does not indicate any symptoms associated with coronavirus-19. Ebola Screen: Patient negative for fever greater than or equal to 101.5 degrees Fahrenheit, and additional compatible Ebola Virus Disease symptoms Patient denies exposure to infectious person. Patient denies travel to an Ebola-affected area in the 21 days before illness onset. No symptoms or risks identified at this time. Initial Sepsis Screen: Does the patient meet any 2 criteria? No. Patient's initial sepsis screen is negative. Does the patient have a suspected source of infection? No. Patient's initial sepsis screen is negative. Risk Assessment: Do you want to hurt yourself or someone else? Patient reports no desire to harm self or others. Onset of symptoms is unknown. 04:12 Method Of Arrival: Ambulatory vc1 04:12 Acuity: BOZENA 5 vc1 Triage Assessment: 04:17 General: Appears in no apparent distress. uncomfortable, obese, well developed, well vc1 nourished, Behavior is calm, cooperative, appropriate for age. Pain: Complains of pain in mouth and tongue Pain does not radiate. Pain currently is 6 out of 10 on a pain scale. Quality of pain is described as burning. EENT: No deficits noted. No signs and/or symptoms were reported regarding the EENT system. Neuro: Level of Consciousness is awake, alert, obeys commands, Oriented to person, place, time, situation, Appropriate for age. Cardiovascular: Heart tones S1 S2 present Capillary refill < 3 seconds Patient's skin is warm and dry. Respiratory: Airway is patent Respiratory effort is even, unlabored, Respiratory pattern is regular, symmetrical. GI: Abdomen is round non-distended, Bowel sounds present X 4 quads. Abd is soft and non tender Reports nausea. : No deficits noted. No signs and/or symptoms were reported regarding the genitourinary system. Derm: Skin is intact, is healthy with good turgor, Skin is dry, Skin is normal, Skin temperature is warm. Musculoskeletal: Circulation, motion, and sensation intact. Range of motion: intact in all extremities. 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 - Infectious Disease History:: Denies. - Social history:: Smoking status: Reported history of juuling and/or vaping. Screenin:18 [facility] ED Fall Risk Assessment (Adult) History of falling in the last 3 months, vc1 including since admission No falls in past 3 months (0 pts) Confusion or Disorientation No (0 pts) Intoxicated or Sedated No (0 pts) Impaired Gait No (0 pts) Mobility Assist Device Used No (0 pt) Altered Elimination No (0 pt) Score/Fall Risk Level 0 - 2 = Low Risk Oriented to surroundings, Maintained a safe environment, Educated pt \T\ family on fall prevention, incl call for assistance when getting out of bed. Abuse screen: Denies threats or abuse. Nutritional screening: No deficits noted. Tuberculosis screening: No symptoms or risk factors identified. Assessment: 04:18 General: see triage assessment. vc1 Vital Signs: 04:12 BP 157 / 103; Pulse 109; Resp 18; Temp 98; Pulse Ox 100% ; Weight 121.56 kg; Height 5 vc1 ft. 5 in. ; Pain 6/10; 04:27 BP 132 / 98; Pulse 100; Resp 16; Pulse Ox 100% ; dd2 04:12 Body Mass Index 44.60 (121.56 kg, 165.1 cm) vc1 04:12 Pain Scale: Adult vc1 ED Course: 03:59 Patient arrived in ED. [id number] 04:02 Jd Mariscal DO is Attending Physician. ms3 04:12 MATI ZUÑIGA, RN is Primary Nurse. dd2 04:12 Armin Ojeda DDS is Referral Physician. ms3 04:12 Ruperto Hdz DO is Referral Physician. ms3 04:14 Triage completed. vc1 04:17 Arm band placed on right wrist. vc1 04:19 Patient has correct armband on for positive identification. Bed in low position. Call vc1 light in reach. Pulse ox on. NIBP on. 04:19 Provided Education on: cessation of vaping. vc1 04:19 No provider procedures requiring assistance completed. Patient did not have IV access vc1 during this emergency room visit. Administered Medications: 04:18 Drug: Ondansetron Oral Disintegrating Tablet Oral Disintegrating Tablet 4 mg PO once dd2 Route: PO; 04:27 Follow up: Response: Medication administered at discharge. dd2 Medication: 04:19 VIS not applicable for this client. vc1 Outcome: 04:12 Discharge ordered by . ms3 04:27 Discharged to home ambulatory, dd2 04:27 Condition: stable 04:27 Discharge instructions given to patient, Instructed on discharge instructions, follow up and referral plans. medication usage, Demonstrated understanding of instructions, follow-up care, medications, Prescriptions given X 2, 04:29 Patient left the ED. dd2 Signatures: Jd Mariscal DO DO ms3 Marco A Zuleima [id number] Karina Vasquez RN RN vc1 MATI ZUÑIGA RN RN dd2
[2023-12-10 09:30] VITALS: TEMP 98; O2SAT 100
[2023-12-10 09:35] VITALS: BP 132/98
== END 2023-12-10 04:29 | disposition home or self-care (01) ==
LOC: ER 03:57
DX: K08.89 Other specified disorders of teeth and supporting structures (principal); R11.0 Nausea
CPT/HCPCS: 99283; Q0162

== ENCOUNTER 2023-12-31 23:05 | Emergency (ER) | payer OTHER ==
--- OUTSIDE RECORDS SUMMARY | 2023-12-31 23:13 | XMS REPORT | Continuity of Care Document ---
Author Name Unknown Address [address] [place] [address] [facility] Address [address] [facility] [place] [address] Care Team Providers Care District Claims Manager Name Role Phone Jess Munson MD Primary Care Physician + [phone] JESS MUNSON Attending Clinician Unavailab JESS Killian Attending Clinician Unavailab VANESSA Keene Attending Clinician Unavailable VANESSA LEYVA Attending Clinician Unavailable TIANNA MEI Attending Clinician Unavailable TIANNA MEI Attending Clinician Unavailable Jess Munson MD Attending Clinician [phone] Yann Ordonez Attending Clinician +[phone] Yisel Hart MD Attending Clinician +[phone] YISEL HART Attending Clinician Unavailable KONRAD ORDOÑEZ Attending Clinician Unavailab KONRAD Owens Attending Clinician Unavailab Konrad Owens NP Attending Clinician +[phone] Tianna Young Attending Clinician +[phone] ISAAC SHAY Attending Clinician Unavailable Vanessa Leyva MD Attending Clinician [phone] Stephen VARGAS, Jose De Jesus Palomino Attending Clinician +[phone] JOSE DE JESUS MEDINA Attending Clinician Unavailable JOSE DE JESUS MEDINA Attending Clinician Unavailable 2, [facility] Attending Clinician Unavailable KELLY SIMMS Attending Clinician UnavailKELLY Ferrera Attending Clinician Unavailelliott Bauer MD, Caro S Attending Clinician + [phone] Kelly Simms MD Attending Clinician + [phone] TIFF ISABEL Attending Clinician Unavailable TIFF ISABEL Attending Clinician Unavailable Maame PETERS, Tiff Attending Clinician [phone], [facility] Attending Clinician Unavailable BONITA TRIVEDI Attending Clinician Unavailab Bonita Hernandez DO Attending Clinician +[phone] Carlos Ibrahim MD Attending Clinician + [phone] Doctor Unassigned, [place] Attending Clinician U NICOLE Aparicio Attending Clinician UnavailNICOLE Sellers Attending Clinician Unavaila KAMILA Barrios Attending Clinician Unavailable JACINTA VOSS Attending Clinician Unavaila susu Provider, [facility] Attending [facility]ician Henrietta vailable Meche Richard Attending Clinician + Jacinta Voss CNM Attending Clinician [phone] MECHE ROBERSON Attending Clinician Unavail able Rodrick Carlisle Attending Clinician Unava ilDREW Singh Attending Clinician Unavailable RODRICK PETE Attending Clinician Unavailab Wilver Weinstein MD Attending Clinician + [phone] LOVE DOWELL Attending Clinician UnavailLOVE Gonzalez Attending Clinician UnavailBRENDA Pedro Attending Clinician Unavailable Brenda Velásquez MD Attending Clinician +[phone] Fernando Acosta Attending Clinician + [phone] Ultrasound, [facility] Attending Clinician UnavailVinh Wong MD Attending Clinician +[phone] VINH MONCADA Attending Clinician Unavailable VINH MONCADA Attending Clinician Unavailable Juan BOND Ivanna Attending Clinician +[phone] Maddie Romeo MD Attending Clinician +[phone] MADDIE ROMEO Attending Clinician Unavailable Holly, [facility] Att[facility]ician Unavailable CARO BAUER Attending Clinician Unavailable Caro Bauer MD Attending Clinician + [phone] Alayna Pyle S Attending Clinician +[phone] ANGUS DWYER Attending Clinician Unavailable Angus Dwyer DO Attending Clinician +[phone] Abdullahi Gomez MD Attending Clinician +[phone] Foreign Calvillo Attending Clinician + [phone] Edith Terry MD Attending Clinician +[phone] EDITH TERRY Attending Clinician Unavailable EDITH TERRY Attending Clinician Unavailable YISEL HART Admitting Clinician Unavailable Yisel Hart MD Admitting Clinician +[phone] KELLY SIMMS Admitting Clinician UnavailVANESSA Garza Admitting Clinician Unavailable Vanessa Leyva MD Admitting Clinician +[phone] BRENDA VELÁSQUEZ Admitting Clinician Unavailable Brenda Velásquez MD Admitting Clinician +[phone] Edith Terry MD Admitting Clinician +[phone] EDITH TERRY Admitting Clinician Unavailable Payers Payer Name Policy Type Policy Number Effective Date Expirati on Date Source [facility] [id number] 2021 00:00:00 Problems Condition Name Condition Details Condition Category Status Onset Date Resolution Date Last Treatment Date Treating Clinician Comments Source Hematemesi s with nausea Hematemesi s with nausea Disease Active 2023-02 0- 00:00: 00 [facility] Coffee ground emesis Coffee ground emesis Disease Active 2023-02 0- 00:00: 00 [facility] Abdominal pain, epigastric Abdominal pain, epigastric Disease Active 2023-02 0- 00:00: 00 [facility] Papanicola ou smear of cervix with low grade squamous intraepith elial lesion (LGSIL) Papanicola ou smear of cervix with low grade squamous intraepith elial lesion (LGSIL) Disease Active 5-18 00:00: 00 Overview: Formattin g of this note might be different from the original. LGSIL in 2021 needs repeat pap smear in 2022. [facility] Tetrahydro cannabinol (THC) use disorder, mild, abuse Tetrahydro cannabinol (THC) use disorder, mild, abuse Disease Active 5-10 00:00: 00 [facility] Vitamin D deficiency Vitamin D deficiency Disease Active 4- 00:00: 00 [facility] Obesity (BMI 30-39.9) Obesity (BMI 30-39.9) Disease Active 05-31 00:00: 00 [facility] E46 Unspecifie d severe protein-ca ash malnutriti on E46 Unspecifie d severe protein-ca ash malnutriti on Disease Active 05-31 00:00: 00 [facility] Tetrahydro cannabinol (THC) use disorder, mild, abuse Tetrahydro cannabinol (THC) use disorder, mild, abuse Disease Resolve d 5-10 00:00: 00 2022-12-25 00:00:00 2022-12-25 13:59:24 [facility] Chronic hypertensi on with superimpos ed preeclamps ia Chronic hypertensi on with superimpos ed preeclamps ia Disease Resolve d 2021-02 0-08 00:00: 00 2022-01-20 00:00:00 2022-01-20 14:17:40 [facility] Supervisio n of high risk , antepartum Supervisio n of high risk , antepartum Disease Resolve d 5-05 00:00: 00 2022-01-20 00:00:00 2022-01-20 14:17:35 [facility] GBS (group B Streptococ cus carrier), +RV culture, 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 Will need ABX in labor. [facility] Single liveborn, born in hospital, delivered by vaginal delivery Single liveborn, born in hospital, delivered by vaginal delivery Disease Resolve d 2021-02 0-09 00:00: 00 2021-12-22 00:00:00 2021-12-22 07:58:27 [facility] Morbid obesity with body mass index of 40.0-49.9 Morbid obesity with body mass index of 40.0-49.9 Disease Resolve d 2021-02 0-08 00:00: 00 2021-12-22 00:00:00 2021-12-22 15:59:51 [facility] Severe pre-eclamp shena in third trimester Severe pre-eclamp shena in third trimester Disease Resolve d 2021-02 0-08 00:00: 00 2021-12-22 00:00:00 2021-12-22 07:58:22 [facility] Elevated blood pressure reading without diagnosis of hypertensi on Elevated blood pressure reading without diagnosis of hypertensi on Disease Resolve d 0 9-08 00:00: 00 2021-12-22 00:00:00 2021-12-22 07:58:07 [facility] Proteinuri a affecting in third trimester Proteinuri a affecting in third trimester Disease Resolve d 0 9-08 00:00: 00 2021-12-22 00:00:00 2021-12-22 07:58:17 [facility] Intractabl e nausea and vomiting Intractabl e nausea and vomiting Disease Resolve d 2021-0 7-05 00:00: 00 2021-12-22 00:00:00 2021-12-22 07:58:09 [facility] Urinary tract infection without hematuria, site unspecifie d Urinary tract infection without hematuria, site unspecifie d Disease Resolve d 2021-0 6-02 00:00: 00 2021-12-22 00:00:00 2021-12-22 07:57:57 [facility] Nausea and vomiting during Nausea and vomiting during Disease Resolve d 2021-0 5-10 00:00: 00 2021-12-22 00:00:00 2021-12-22 07:58:11 [facility] Nausea and vomiting during Nausea and vomiting during Disease Resolve d 2021-0 5-10 00:00: 00 2021-12-22 00:00:00 2021-12-22 07:58:11 [facility] Primigravi da in second trimester Primigravi da in second trimester Disease Resolve d 2021-0 5-05 00:00: 00 2021-12-22 00:00:00 2021-12-22 07:58:15 [facility] Obesity in Obesity in Disease Resolve d 2021-0 5-05 00:00: 00 2021-12-22 00:00:00 2021-12-22 07:58:13 [facility] Chronic hypertensi on affecting Chronic hypertensi on affecting Disease Resolve d 2021-0 4-24 00:00: 00 2021-12-22 00:00:00 2021-12-22 07:58:04 [facility] BMI 40.0-44.9, adult BMI 40.0-44.9, adult Disease Resolve d 2021-0 4-23 00:00: 00 2021-12-22 00:00:00 2021-12-22 15:59:13 [facility] 15 weeks gestation of 15 weeks gestation of Disease Resolve d 2021-0 4-12 00:00: 00 2021-12-22 00:00:00 2021-12-22 07:58:01 [facility] Hyperemesi s Hyperemesi s Disease Resolve d 2021-0 5-10 00:00: 00 2021-11-26 00:00:00 2021-11-26 09:09:11 [facility] Hyperbilir ubinemia Hyperbilir ubinemia Disease Resolve d 2021-0 4-25 00:00: 00 2021-11-26 00:00:00 2021-11-26 09:09:06 [facility] Hypomagnes emia Hypomagnes emia Disease Resolve d 4-25 00:00: 00 2021-11-26 00:00:00 2021-11-26 09:09:05 [facility] Hypocalcem ia Hypocalcem ia Disease Resolve d 4-25 00:00: 00 2021-11-26 00:00:00 2021-11-26 09:09:03 [facility] Hypokalemi a Hypokalemi a Disease Resolve d 4-12 00:00: 00 2021-11-26 00:00:00 2021-11-26 09:09:30 [facility] Hyponatrem ia Hyponatrem ia Disease Resolve d 4-12 00:00: 00 2021-11-26 00:00:00 2021-11-26 09:09:33 [facility] Tachycardi a Tachycardi a Disease Resolve d 4-12 00:00: 00 2021-11-26 00:00:00 2021-11-26 09:09:30 [facility] Nausea and vomiting in prior to 22 weeks gestation Nausea and vomiting in prior to 22 weeks gestation Disease Resolve d 4-12 00:00: 00 2021-11-26 00:00:00 2021-11-26 09:09:43 [facility] Nausea and vomiting in prior to 22 weeks gestation Nausea and vomiting in prior to 22 weeks gestation Disease Resolve d 4-12 00:00: 00 2021-11-26 00:00:00 2021-11-26 09:09:43 [facility] Allergies, Adverse Reactions, Alerts Allergy Name Allergy Type Status Severity Reaction(s) Onset Date Inactive Date Treating Clinician Comments Source Egg Propensi ty to adverse reaction s Active Unknown - See comments - 00:00: 00 [facility] EGG DRUG INGREDI Active Unknown-Cmnt 5-11 00:00: 00 [facility] Metoclop ramide Drug Allergy Active Extra pyramidal effects 4-12 00:00: 00 [facility] METOCLOP RAMIDE DRUG INGREDI Active Med EP Effects 12 00:00: 00 [facility] Social History Social Habit Start Date Stop Date Quantity Comments Source ASSERTION 2021-03-26 00:00:00 [facility] Sexual orientation [facility] History of tobacco use Current smoker [facility] Alcoholic beverage intake 2023-12-25 00:00:00 2023-12-25 00:00:00 Current drinker of alcohol (finding) [facility] Alcohol Comment 2023-11-26 00:00:00 2023-11-26 00:00:00 ocassional [facility] Tobacco use and exposure 2023-11-26 00:00:00 2023-11-26 00:00:00 Smokeless tobacco non-user [facility] History of Social function 2023-11-22 00:00:00 2023-11-22 00:00:00 [facility] Alcohol intake 2023-06-21 00:00:00 2023-06-21 00:00:00 Ex-drinker (finding) [facility] Exposure to SARS-CoV-2 (event) 2022-01-10 00:00:00 2022-01-20 14:04:00 Not sure [facility] Tobacco Comment 2021-09-15 00:00:00 2021-09-15 00:00:00 marijuana,no nicotine stopped for [facility] Sex assigned at 1995 00:00:00 1995 00:00:00 [facility] Smoking Status Start Date Stop Date Source Ex-smoker 2023-11-26 00:00:00 2023-11-26 00:00:00 [facility] Medications Ordered Medication Name Filled Medication Name Start Date Stop Date Current Medication? Ordering Clinician Indication Dosage Frequency Signature (SIG) Comments Components Source phentermine 37.5 mg tablet 2023-02 00:00: 00 Yes [id number] 104 37.5mg Take 1 tablet by mouth daily with breakfast. [facility] zolpidem 5 mg tablet 2023-02 00:00: 00 Yes [id number] 5mg Take 1 tablet by mouth at bedtime as needed for Insomnia. [facility] ondansetron 4 mg disintegrat ing tablet 2023-02 00:00: 00 Yes [id number] 4mg Take 1 tablet by mouth every 8 (eight) hours as needed for Nausea and Vomiting (N/V). [facility] ondansetron 4 mg tablet 2023-02 00:00: 00 Yes [id number] 4mg Take 1 tablet by mouth every 8 (eight) hours as needed for Nausea and Vomiting (N/V). [facility] TRAZODONE 100 mg tablet 2023-02 00:00: 00 Yes [id number] 100mg TAKE 1 TABLET BY MOUTH EVERYDAY AT BEDTIME [facility] pantoprazol e 40 mg EC tablet 11-18 00:00: 00 Yes [id number] 40mg Take 1 tablet by mouth in the morning. [facility] phentermine 37.5 mg tablet 11-18 00:00: 00 12-24 00:00 :00 No [id number] 104 37.5mg Take 1 tablet by mouth daily with breakfast. [facility] zolpidem 5 mg tablet 11-18 00:00: 00 12-24 00:00 :00 No [id number] 5mg Take 1 tablet by mouth at bedtime as needed for Insomnia. [facility] proMETHazin e (PHENERGAN) 12.5 mg in NS 50 mL IV piggyback (CNR) 11-17 15:30: 00 11-17 15:49 :00 No 12.5mg 12.5 mg, IV Piggyback, at 200 mL/hr Administer over 15 Minutes, ONCE, 1 dose, On 11/18/23 at 1030, RACHAEL [facility] morpHINE (4 mg/mL) injection 4 mg 11-17 15:30: 00 11-17 15:34 :00 No 4mg 4 mg, Slow IV Push, ONCE, 1 dose, On 11/18/23 at 1030, STAT [facility] ketorolac (TORADOL) injection 30 mg 11-17 15:00: 00 11-17 14:09 :00 No 30mg 30 mg, Slow IV Push, ONCE, 1 dose, On Sun11/18/23 at 1000, [facility] famotidine (PEPCID (PF)) injection 20 mg 11-17 14:15: 00 11-17 14:09 :00 No 20mg 20 mg, Slow IV Push, ONCE, 1 dose, On Sun11/18/23 at 0915, [facility] iopamidol (ISOVUE 370-500 mL) injection 100 mL 11-17 13:30: 00 11-17 13:45 :00 No [id number] 100mL 100 mL, Intravenou s, ONCE, 1 dose, On Sun11/18/23 at 0845, [facility] NaCl 0.9% (NS) IV infusion 1,000 mL 11-17 13:00: 00 11-17 15:15 :00 No 1000mL at 999 mL/hr, Intravenou s, ONCE, 1 dose, On Sun11/18/23 at 0800, [facility] proMETHazin e (PHENERGAN) 12.5 mg in NS 50 mL IV piggyback (CNR) 11-17 12:30: 00 11-17 13:33 :00 No 12.5mg 12.5 mg, IV Piggyback, at 200 mL/hr Administer over 15 Minutes, ONCE, 1 dose, On Sun11/18/23 at 0730, [facility] fentanyl PF (SUBLIMAZE (PF)) injection 100 mcg 11-17 11:15: 00 11-17 11:16 :00 No 100ug 100 mcg, Slow IV Push, ONCE, 1 dose, On Sun11/18/23 at 0615, [facility] ondansetron (ZOFRAN (PF)) injection 8 mg 11-17 11:00: 00 11-17 11:10 :00 No 8mg 8 mg, Slow IV Push, ONCE, 1 dose, On Sun11/18/23 at 0600, [facility] sodium chloride (NS) injection 5 mL 11-17 10:51: 45 Yes 5mL 5 mL, Intravenou s, PRN, Starting on Sun11/18/23 at 0551, Until Discontinu ed, Routine, IV line flushing [facility] proMETHazin e 25 mg tablet 11-17 00:00: 00 Yes [id number] 25mg Take 1 tablet by mouth every 6 (six) hours as needed for Nausea and Vomiting (N/V). [facility] traMADoL 50 mg tablet 11-17 00:00: 00 Yes [id number] 50mg Take 1 tablet by mouth every 6 (six) hours as needed (pain). Indication s: acute pain [facility] zolpidem 5 mg tablet 11-17 00:00: 00 11-17 00:00 :00 No [id number] 5mg Take 1 tablet by mouth at bedtime as needed for Insomnia. [facility] KCL (KLOR-CON M20) tablet 20 mEq 11-07 19:30: 00 11-07 19:56 :00 No 20meq 20 mEq, Oral, ONCE, 1 dose, On Gabby 11/08/23 at 1430, [facility] proMETHazin e (PHENERGAN) 12.5 mg in NS 50 mL IV piggyback (CNR) 11-07 17:45: 00 11-07 18:53 :00 No 12.5mg 12.5 mg, IV Piggyback, at 200 mL/hr Administer over 15 Minutes, ONCE, 1 dose, On Gabby 11/08/23 at 1245, [facility] ondansetron (ZOFRAN (PF)) injection 4 mg 11-07 16:30: 00 11-07 16:38 :00 No 4mg 4 mg, Slow IV Push, ONCE, 1 dose, On Gabby 11/08/23 at 1130, [facility] famotidine (PEPCID (PF)) injection 20 mg 11-07 16:30: 00 11-07 16:38 :00 No 20mg 20 mg, Slow IV Push, ONCE, 1 dose, On Gabby 11/08/23 at 1130, [facility] NaCl 0.9% (NS) bolus infusion 1,000 mL 11-07 16:30: 00 11-07 19:53 :00 No 1000mL at 999 mL/hr, 1,000 mL, IV Infusion, ONCE, 1 dose, On Gabby 11/08/23 at 1130, [facility] morpHINE (4 mg/mL) injection 4 mg 11-07 15:45: 00 11-07 18:39 :00 No 4mg 4 mg, Slow IV Push, ONCE, 1 dose, On Gabby 11/08/23 at 1045, [facility] ondansetron 4 mg disintegrat ing tablet 11-07 00:00: 00 11-12 04:59 :00 Yes [id number] 4mg Take 1 tablet by mouth every 8 (eight) hours as needed for Nausea and Vomiting (N/V) for up to 4 days. [facility] zolpidem 5 mg tablet 10-18 00:00: 00 11-15 00:00 :00 No [id number] 5mg Take 1 tablet by mouth at bedtime as needed for Insomnia. [facility] ergocalcife rol, vitamin d2, (VITAMIN D2) 1,250 mcg (50,000 unit) capsule 10-15 00:00: 00 Yes [id number] Take 1 capsule by mouth weekly. [facility] phentermine 37.5 mg tablet 10-15 00:00: 00 11-18 00:00 :00 No [id number] 37.5mg Take 1 tablet by mouth daily with breakfast. [facility] ergocalcife rol, vitamin d2, (VITAMIN D2) 1,250 mcg (50,000 unit) capsule 10-02 00:00: 00 10-14 00:00 :00 No [id number] 12518C Take 1 capsule by mouth weekly. [facility] zolpidem 5 mg tablet 0 -25 00:00: 00 10-15 00:00 :00 No [id number] 5mg Take 1 tablet by mouth at bedtime as needed for Insomnia. [facility] phentermine 37.5 mg tablet 25 00:00: 00 10-14 00:00 :00 No [id number] 37.5mg Take 1 tablet by mouth daily with breakfast. [facility] phentermine 37.5 mg tablet 17 00:00: 00 09-11 00:00 :00 No [id number] 37.5mg Take 1 tablet by mouth daily with breakfast. [facility] zolpidem 5 mg tablet 08-05 00:00: 00 09-11 00:00 :00 No [id number] 5mg Take 1 tablet by mouth at bedtime as needed for Insomnia. [facility] traZODone 100 mg tablet 6-05 00:00: 00 12-09 00:00 :00 No [id number] 100mg Take 1 tablet by mouth at bedtime. [facility] acetaminoph en (TYLENOL) tablet 650 mg 06-20 17:30: 00 06-20 17:25 :00 No 650mg 650 mg, Oral, ONCE, 1 dose, On Sun06/21/23 at 1230, RACHAEL [facility] sulfamethox azole-trime thoprim 800-160 mg per tablet 06-20 00:00: 00 08-05 00:00 :00 No [id number] 1{tbl} Take 1 tablet by mouth every 12 (twelve) hours. [facility] phentermine 37.5 mg tablet 4-09 00:00: 00 08-05 00:00 :00 No [id number] 37.5mg Take 1 tablet by mouth daily with breakfast. [facility] traZODone 100 mg tablet 2024-0 3-04 00:00: 00 07-24 00:00 :00 No [id number] 100mg Take 1 tablet by mouth at bedtime. [facility] phentermine 37.5 mg tablet 2-22 00:00: 00 05-28 00:00 :00 No [id number] 37.5mg Take 1 tablet by mouth daily with breakfast. [facility] zolpidem 5 mg tablet 2-15 00:00: 00 08-05 00:00 :00 No [id number] 5mg Take 1 tablet by mouth at bedtime as needed for Insomnia. [facility] phentermine 37.5 mg tablet - 00:00: 00 04-11 00:00 :00 No [id number] 37.5mg Take 1 tablet by mouth daily with breakfast. [facility] zolpidem 5 mg tablet 1- 00:00: 00 04-05 00:00 :00 No [id number] 5mg Take 1 tablet by mouth at bedtime as needed for Insomnia. [facility] phentermine 37.5 mg tablet 2022-02 2-08 00:00: 00 03-02 00:00 :00 No [id number] 37.5mg Take 1 tablet by mouth daily with breakfast. [facility] traZODone 100 mg tablet 2022-02 2-06 00:00: 00 04-22 00:00 :00 No [id number] 100mg Take 1 tablet by mouth at bedtime. [facility] phentermine 37.5 mg tablet 2022-02 2-06 00:00: 00 01-26 00:00 :00 No [id number] 37.5mg Take 1 tablet by mouth daily with breakfast. [facility] zolpidem 5 mg tablet 2022-02 00:00: 00 02-19 00:00 :00 No [id number] 5mg Take 1 tablet by mouth at bedtime as needed for Insomnia. [facility] TRAZODONE 50 mg tablet 2022-02 00:00: 00 01-24 00:00 :00 No [id number] 50mg TAKE 1 TABLET BY MOUTH EVERYDAY AT BEDTIME [facility] ramelteon 8 mg tablet 2022-02 00:00: 00 01-24 00:00 :00 No [id number] 8mg Take 1 tablet by mouth at bedtime. [facility] Doxepin 6 mg Tab 2022-02 00:00: 00 01-04 00:00 :00 No [id number] 6mg Take 6 mg by mouth at bedtime. [facility] ergocalcife rol, vitamin d2, (VITAMIN D2) 1,250 mcg (50,000 unit) capsule 2022-02 00:00: 00 09-30 00:00 :00 No [id number] Take 1 capsule by mouth weekly. [facility] traZODone 50 mg tablet 2022-02 00:00: 00 01-16 00:00 :00 No [id number] 50mg Take 1 tablet by mouth at bedtime. [facility] medroxyPROG ESTERone (DEPO-PROVE RA) syringe 150 mg 2021-02 21:15: 00 01-20 20:41 :00 No [id number] 150mg [facility] NIFEdipine ER 30 mg tablet 2021-02 00:00: 00 01-20 00:00 :00 No [id number] 30mg Take 1 tablet by mouth in the morning. [facility] NIFEdipine ER tablet 30 mg 2021-0210 04:00: 00 Yes 30mg 30 mg, Oral, DAILY, First dose on 11/27/21 at 2300, Until Discontinu ed, Routine [facility] vitamin w/FA tablet 2021-02 0 00:00: 00 01-20 00:00 :00 No [id number] 1{tbl} Take 1 tablet by mouth in the morning. [facility] docusate 100 mg capsule 2021-02 0 00:00: 00 01-20 00:00 :00 No [id number] 200mg Take 2 capsules by mouth once daily as needed for Constipati on. [facility] ferrous sulfate 325 mg (65 mg iron) tablet 2021-02 00:00: 00 01-20 00:00 :00 No [id number] 325mg Take 1 tablet by mouth in the morning and 1 tablet in the evening. [facility] ibuprofen 600 mg tablet 2021-02 00:00: 00 01-20 00:00 :00 No [id number] 600mg Take 1 tablet by mouth every 6 (six) hours as needed (Pain). Take with food or milk. [facility] D5W 0.45% NaCl (1/2NS) IV infusion 1,000 mL 2021-02 19:38: 00 Yes 1000mL at 50 mL/hr, 1,000 mL, IV Infusion, CONTINUOUS , Starting on 11/27/21 at 1445, Until Discontinu ed, Routine [facility] HYDROcodone -acetaminop hen (NORCO 5) 5-325 mg tablet 1 tablet 2021-02 12:41: 25 Yes 1{tbl} 1 tablet, Oral, Q6HPRN, Starting on 11/27/21 at 0741, Until Discontinu ed, Routine, Pain (scale 7-10) [facility] ibuprofen (IBU) tablet 600 mg 2021-02 12:41: 25 Yes 600mg 600 mg, Oral, Q6HPRN, Starting on 11/27/21 at 0741, Until Discontinu ed, Routine, Pain (scale 4-6) [facility] acetaminoph en (TYLENOL) tablet 650 mg 2021-02 12:41: 25 Yes 650mg 650 mg, Oral, Q6HPRN, Starting on 11/27/21 at 0741, Until Discontinu ed, Routine, Pain (scale 1-3) [facility] diphenhydrA MINE (BENADRYL) tablet 25 mg 2021-02 12:41: 25 Yes 25mg 25 mg, Oral, Q6HPRN, Starting on 11/27/21 at 0741, Until Discontinu ed, Routine, Sleep, Itching [facility] ondansetron (ZOFRAN (PF)) injection 4 mg 2021-02 12:41: 25 Yes 4mg 4 mg, Slow IV Push, Q8HPRN, Starting on 11/27/21 at 0741, Until Discontinu ed, Routine, Nausea and Vomiting (N/V) [facility] simethicone (GAS RELIEF (SIMETHICON E)) chewable tablet 160 mg 2021-02 12:41: 25 Yes 160mg 160 mg, Oral, PC+HSPRN, Starting on 11/27/21 at 0741, Until Discontinu ed, Routine, Gas [facility] docusate (COLACE) capsule 200 mg 2021-02 12:41: 25 Yes 200mg 200 mg, Oral, QDAILYPRN, Starting on 11/27/21 at 0741, Until Discontinu ed, Routine, Constipati on [facility] magnesium hydroxide (MILK OF MAGNESIA) 400 mg/5 mL suspension 30 mL 2021-02 12:41: 25 Yes 30mL 30 mL, Oral, QDAILYPRN, Starting on 11/27/21 at 0741, Until Discontinu ed, Routine, Constipati on [facility] benzocaine- menthol (DERMOPLAST ) 20-0.5 % topical spray 2021-02 12:41: 25 Yes Topical, PRN, Starting on Sun11/27/21 at 0741, Until Discontinu ed, Routine, Perineum discomfort [facility] calcium gluconate 100 mg/mL (10%) injection 1,000 mg 2021-02 12:40: 21 Yes 1000mg 1,000 mg, Slow IV Push, PRN - SEE INSTRUCTIO NS, Starting on Sun11/27/21 at 0740, Until Discontinu ed, Routine, magnesium toxicity [facility] magnesium sulfate 4 mEq/mL (50 %) injection 32.48 mEq 2021-02 12:40: 21 Yes 4g 32.48 mEq (4 g), Slow IV Push, PRN - SEE INSTRUCTIO NS, Starting on 11/27/21 at 0740, Until Discontinu ed, Routine, For seizure activity (patient not on magnesium sulfate) [facility] magnesium sulfate 4 mEq/mL (50 %) injection 16.24 mEq 2021-02 0 12:40: 21 Yes 2g 16.24 mEq (2 g), Slow IV Push, PRN - SEE INSTRUCTIO NS, 2 doses, Starting on 11/27/21 at 0740, Until Discontinu ed, Routine, For seizure activity (patient already on magnesium sulfate) [facility] labetaloL (NORMODYNE) injection 20 mg 2021-02 0 12:38: 39 Yes 20mg [Order 1 Start] [...] Hypertensi ve Emergency in [Order 4 End] [facility] oxytocin (PITOCIN) 30 units in NS 500 mL IV infusion 2021-02 02:10: 24 11-27 12:40 :54 No 2mU/min at 2-40 mL/hr, IV Infusion, TITRATE, Starting on 11/26/21 at 2110, Until 11/27/21 at 0740, Routine [facility] penicillin g pot in dextrose 3 million unit/50 mL RTU iv piggyback 3 Million Units 2021-02 22:15: 00 11-27 12:40 :54 No 310 3 Million Units, IV Piggyback, Q4H ABX, First dose on 11/26/21 at 1715, Until Discontinu ed, Administer over 60 Minutes, 50 mL
Reas on for Anti-Infec tive: Empiric Non-Surgic al Prophylaxi s
Durat ion of therapy: 72 hours [facility] fentaNYL-ro pivacaine 2 mcg/mL-0.1 % (PF) in NS 200 mL epidural infusion RTU 2021-02 20:46: 00 11-27 13:52 :31 No Epidural, ONCE INTRA PROCEDURE, Starting on 11/26/21 at 1546, Until 11/27/21 at 0852, Routine, Intra-op [facility] lidocaine-e pinephrine (XYLOCAINE W/EPINEPHRI NE) 1.5 %-1:200,000 injection 2021-02 20:43: 00 Yes Epidural, ONCE INTRA PROCEDURE, Starting on 11/26/21 at 1543, Until Discontinu ed, Routine, Intra-op [facility] penicillin g potassium 5 Million Units in NaCl 0.9% (NS) 100 mL MINI-BAG 2021-02 18:15: 00 11-26 19:13 :00 No 510 5 Million Units, IV Piggyback, ONCE, 1 dose, On 11/26/21 at 1315, Administer over 60 Minutes, 100 mL
Reas on for Anti-Infec tive: Empiric Non-Surgic al Prophylaxi s
Durat ion of therapy: 72 hours [facility] NaCl 0.9% (NS) IV infusion 1,000 mL 2021-02 18:00: 00 11-27 12:40 :54 No 1000mL at 50 mL/hr, IV Infusion, CONTINUOUS , Starting on 11/26/21 at 1300, Until 11/27/21 at 0740, Routine [facility] oxytocin (PITOCIN) 30 units in NS 500 mL IV infusion 2021-02 14:31: 25 11-27 02:11 :24 No 2mU/min at 2-40 mL/hr, IV Infusion, TITRATE, Starting on 11/26/21 at 0931, Until 11/26/21 at 2111, Routine [facility] FENTanyl PF (SUBLIMAZE (PF)) injection 100 mcg 2021-02 13:50: 58 11-27 12:40 :54 No 100ug 100 mcg, Slow IV Push, Q1HPRN, Starting on 11/26/21 at 0850, Until 11/27/21 at 0740, Routine, Pain (scale 4-6), Pain (scale 7-10) [facility] misoprostol (CYTOTEC) quarter-tab let 25 mcg 2021-02 13:45: 00 11-26 13:22 :00 No 25ug 25 mcg, Vaginal, ONCE, 1 dose, On 11/26/21 at 0845, Routine [facility] butalbital- acetaminoph en-caff (ESGIC) 50-325-40 mg tablet 1 tablet 2021-02 09:45: 00 11-26 08:57 :00 No 1{tbl} 1 tablet, Oral, ONCE NOW, 1 dose, On 11/26/21 at 0445, Routine [facility] magnesium sulfate in water for injection 20 gram/500 mL (4 %) IV infusion 2021-02 09:00: 00 Yes 2g/h 2 g/hr (50 mL/hr), IV Infusion, CONTINUOUS , Starting on 11/26/21 at 0400, Until Discontinu ed, Routine [facility] D5W 0.45% NaCl (1/2NS) IV infusion 1,000 mL 2021-02 0-08 09:00: 00 11-27 12:40 :54 No 1000mL at 75 mL/hr, 1,000 mL, IV Infusion, CONTINUOUS , Starting on 11/26/21 at 0400, Until 11/27/21 at 0740, Routine [facility] promethazin e 6.25 mg/5 mL solution 9-21 00:00: 00 11-28 00:00 :00 No [id number] 12.5mg Take 10 mL by mouth every 4 (four) hours as needed for Nausea and Vomiting (N/V). [facility] promethazin e 6.25 mg/5 mL solution 8-30 00:00: 00 11-09 00:00 :00 No [id number] 12.5mg Take 10 mL by mouth every 4 (four) hours as needed for Nausea and Vomiting (N/V). [facility] promethazin e 6.25 mg/5 mL solution 8-11 00:00: 00 10-18 00:00 :00 No [id number] 12.5mg Take 10 mL by mouth every 4 (four) hours as needed for Nausea and Vomiting (N/V). [facility] promethazin e 6.25 mg/5 mL solution 0 6-23 00:00: 00 09-15 00:00 :00 No [id number] 12.5mg Take 10 mL by mouth every 4 (four) hours as needed for Nausea and Vomiting (N/V). [facility] proMETHazin e 25 mg tablet 0 5-29 00:00: 00 09-15 00:00 :00 No [id number] 25mg Take 1 tablet by mouth every 6 (six) hours as needed for Nausea and Vomiting (N/V). [facility] promethazin e 6.25 mg/5 mL solution 2022-0 5-06 00:00: 00 06-29 00:00 :00 No [id number] 12.5mg Take 10 mL by mouth every 4 (four) hours as needed for Nausea and Vomiting (N/V). [facility] vit 33-iron-fol ic-dha (SELECT-OB + DHA) 29 mg iron-1 mg -250 mg combo pack 06-23 00:00: 00 07-17 00:00 :00 No [id number] 1{packe t} Take 1 Packet by mouth daily. [facility] proMETHazin e 25 mg suppository 06-22 00:00: 00 09-15 00:00 :00 No [id number] 25mg Insert 1 Suppositor y into rectum every 4 (four) hours as needed for Nausea and Vomiting (N/V). [facility] Immunizations Ordered Immunization Name Filled Immunization Name Date Status Comments Source HPV9 2022-12-25 00:00:00 Completed [facility] HPV9 2022-12-25 00:00:00 Completed [facility] HPV9 2022-12-25 00:00:00 Completed [facility] HPV9 2022-12-25 00:00:00 Completed [facility] HPV9 2022-12-25 00:00:00 Completed [facility] HPV9 2022-12-25 00:00:00 Completed [facility] HPV9 2022-12-25 00:00:00 Completed [facility] TDAP 2021-09-29 00:00:00 Completed [facility] TDAP 2021-09-29 00:00:00 Completed [facility] TDAP 2021-09-29 00:00:00 Completed [facility] TDAP 2021-09-29 00:00:00 Completed [facility] TDAP 2021-09-29 00:00:00 Completed [facility] TDAP 2021-09-29 00:00:00 Completed [facility] TDAP 2021-09-29 00:00:00 Completed [facility] TDAP 2021-09-29 00:00:00 Completed [facility] TDAP 2021-09-29 00:00:00 Completed [facility] TDAP 2021-09-29 00:00:00 Completed [facility] TDAP 2021-09-29 00:00:00 Completed [facility] TDAP 2021-09-29 00:00:00 Completed [facility] TDAP 2021-09-29 00:00:00 Completed [facility] TDAP 2021-09-29 00:00:00 Completed [facility] TDAP 2021-09-29 00:00:00 Completed [facility] TDAP 2021-09-29 00:00:00 Completed [facility] TDAP 2021-09-29 00:00:00 Completed [facility] TDAP 2021-09-29 00:00:00 Completed [facility] TDAP 2021-09-29 00:00:00 Completed [facility] TDAP 2021-09-29 00:00:00 Completed [facility] TDAP 2021-09-29 00:00:00 Completed [facility] TDAP 2021-09-29 00:00:00 Completed [facility] TDAP 2021-09-29 00:00:00 Completed [facility] TDAP 2021-09-29 00:00:00 Completed [facility] TDAP 2009-10-06 00:00:00 Completed HEPATITIS A 2009-10-06 [...] Trivalent 1997-11-23 00:00:00 Completed TDAP Unknown Completed [facility] TDAP Unknown Completed [facility] TDAP Unknown Completed [facility] TDAP Unknown Completed [facility] TDAP Unknown Completed [facility] TDAP Unknown Completed [facility] DTaP, Unspecified Formulation Unknown Completed [facility] HEPATITIS A Unknown Completed [facility] Hep B, Adol or Pedi Dosage Unknown Completed [facility] HIB 4 Dose Schedule Unknown Completed [facility] Haemophilus influenzae type b vaccine, conjugate unspecified formulation Unknown Completed [facility] HPV Unknown Completed [facility] Meningococcal Polysaccharide (groups A, C, Y and W-135) conjugate vaccine (MCV4P) Unknown Completed [facility] MMR Unknown Completed [facility] IPV Unknown Completed [facility] Poliovirus, Live, Oral, Trivalent Unknown Completed [facility] HPV9 Unknown Completed [facility] HEPATITIS A Unknown Completed [facility] Haemophilus influenzae type b vaccine, conjugate unspecified formulation Unknown Completed [facility] HPV Unknown Completed [facility] Meningococcal Polysaccharide (groups A, C, Y and W-135) conjugate vaccine (MCV4P) Unknown Completed [facility] HPV9 Unknown Completed [facility] TDAP Unknown Completed [facility] DTaP, Unspecified Formulation Unknown Completed [facility] Hep B, Adol or Pedi Dosage Unknown Completed [facility] HIB 4 Dose Schedule Unknown Completed [facility] MMR Unknown Completed [facility] IPV Unknown Completed [facility] Poliovirus, Live, Oral, Trivalent Unknown Completed [facility] TDAP Unknown Completed [facility] DTaP, Unspecified Formulation Unknown Completed [facility] HEPATITIS A Unknown Completed [facility] Hep B, Adol or Pedi Dosage Unknown Completed [facility] HIB 4 Dose Schedule Unknown Completed [facility] Haemophilus influenzae type b vaccine, conjugate unspecified formulation Unknown Completed [facility] HPV Unknown Completed [facility] Meningococcal Polysaccharide (groups A, C, Y and W-135) conjugate vaccine (MCV4P) Unknown Completed [facility] MMR Unknown Completed [facility] IPV Unknown Completed [facility] Poliovirus, Live, Oral, Trivalent Unknown Completed [facility] HPV9 Unknown Completed [facility] TDAP Unknown Completed [facility] DTaP, Unspecified Formulation Unknown Completed [facility] HEPATITIS A Unknown Completed [facility] Hep B, Adol or Pedi Dosage Unknown Completed [facility] HIB 4 Dose Schedule Unknown Completed [facility] Haemophilus influenzae type b vaccine, conjugate unspecified formulation Unknown Completed [facility] HPV Unknown Completed [facility] Meningococcal Polysaccharide (groups A, C, Y and W-135) conjugate vaccine (MCV4P) Unknown Completed [facility] MMR Unknown Completed [facility] IPV Unknown Completed [facility] Poliovirus, Live, Oral, Trivalent Unknown Completed [facility] HPV9 Unknown Completed [facility] TDAP Unknown Completed [facility] DTaP, Unspecified Formulation Unknown Completed [facility] HEPATITIS A Unknown Completed [facility] Hep B, Adol or Pedi Dosage Unknown Completed [facility] HIB 4 Dose Schedule Unknown Completed [facility] Haemophilus influenzae type b vaccine, conjugate unspecified formulation Unknown Completed [facility] HPV Unknown Completed [facility] Meningococcal Polysaccharide (groups A, C, Y and W-135) conjugate vaccine (MCV4P) Unknown Completed [facility] MMR Unknown Completed [facility] IPV Unknown Completed [facility] Poliovirus, Live, Oral, Trivalent Unknown Completed [facility] HPV9 Unknown Completed [facility] TDAP Unknown Completed [facility] DTaP, Unspecified Formulation Unknown Completed [facility] HEPATITIS A Unknown Completed [facility] Hep B, Adol or Pedi Dosage Unknown Completed [facility] HIB 4 Dose Schedule Unknown Completed [facility] Haemophilus influenzae type b vaccine, conjugate unspecified formulation Unknown Completed [facility] HPV Unknown Completed [facility] Meningococcal Polysaccharide (groups A, C, Y and W-135) conjugate vaccine (MCV4P) Unknown Completed [facility] MMR Unknown Completed [facility] IPV Unknown Completed [facility] Poliovirus, Live, Oral, Trivalent Unknown Completed [facility] HPV9 Unknown Completed [facility] HEPATITIS A Unknown Completed [facility] Haemophilus influenzae type b vaccine, conjugate unspecified formulation Unknown Completed [facility] HPV Unknown Completed [facility] Meningococcal Polysaccharide (groups A, C, Y and W-135) conjugate vaccine (MCV4P) Unknown Completed [facility] HPV9 Unknown Completed [facility] TDAP Unknown Completed [facility] DTaP, Unspecified Formulation Unknown Completed [facility] Hep B, Adol or Pedi Dosage Unknown Completed [facility] HIB 4 Dose Schedule Unknown Completed [facility] MMR Unknown Completed [facility] IPV Unknown Completed [facility] Poliovirus, Live, Oral, Trivalent Unknown Completed [facility] TDAP Unknown Completed [facility] DTaP, Unspecified Formulation Unknown Completed [facility] HEPATITIS A Unknown Completed [facility] Hep B, Adol or Pedi Dosage Unknown Completed [facility] HIB 4 Dose Schedule Unknown Completed [facility] Haemophilus influenzae type b vaccine, conjugate unspecified formulation Unknown Completed [facility] HPV Unknown Completed [facility] Meningococcal Polysaccharide (groups A, C, Y and W-135) conjugate vaccine (MCV4P) Unknown Completed [facility] MMR Unknown Completed [facility] IPV Unknown Completed [facility] Poliovirus, Live, Oral, Trivalent Unknown Completed [facility] HPV9 Unknown Completed [facility] TDAP Unknown Completed [facility] DTaP, Unspecified Formulation Unknown Completed [facility] HEPATITIS A Unknown Completed [facility] Hep B, Adol or Pedi Dosage Unknown Completed [facility] HIB 4 Dose Schedule Unknown Completed [facility] Haemophilus influenzae type b vaccine, conjugate unspecified formulation Unknown Completed [facility] HPV Unknown Completed [facility] Meningococcal Polysaccharide (groups A, C, Y and W-135) conjugate vaccine (MCV4P) Unknown Completed [facility] MMR Unknown Completed [facility] IPV Unknown Completed [facility] Poliovirus, Live, Oral, Trivalent Unknown Completed [facility] HPV9 Unknown Completed [facility] TDAP Unknown Completed [facility] DTaP, Unspecified Formulation Unknown Completed [facility] HEPATITIS A Unknown Completed [facility] Hep B, Adol or Pedi Dosage Unknown Completed [facility] HIB 4 Dose Schedule Unknown Completed [facility] Haemophilus influenzae type b vaccine, conjugate unspecified formulation Unknown Completed [facility] HPV Unknown Completed [facility] Meningococcal Polysaccharide (groups A, C, Y and W-135) conjugate vaccine (MCV4P) Unknown Completed [facility] MMR Unknown Completed [facility] IPV Unknown Completed [facility] Poliovirus, Live, Oral, Trivalent Unknown Completed [facility] HPV9 Unknown Completed [facility] TDAP Unknown Completed [facility] DTaP, Unspecified Formulation Unknown Completed [facility] HEPATITIS A Unknown Completed [facility] Hep B, Adol or Pedi Dosage Unknown Completed [facility] HIB 4 Dose Schedule Unknown Completed [facility] Haemophilus influenzae type b vaccine, conjugate unspecified formulation Unknown Completed [facility] HPV Unknown Completed [facility] Meningococcal Polysaccharide (groups A, C, Y and W-135) conjugate vaccine (MCV4P) Unknown Completed [facility] MMR Unknown Completed [facility] IPV Unknown Completed [facility] Poliovirus, Live, Oral, Trivalent Unknown Completed [facility] HPV9 Unknown Completed [facility] HEPATITIS A Unknown Completed [facility] Haemophilus influenzae type b vaccine, conjugate unspecified formulation Unknown Completed [facility] HPV Unknown Completed [facility] Meningococcal Polysaccharide (groups A, C, Y and W-135) conjugate vaccine (MCV4P) Unknown Completed [facility] HPV9 Unknown Completed [facility] TDAP Unknown Completed [facility] DTaP, Unspecified Formulation Unknown Completed [facility] Hep B, Adol or Pedi Dosage Unknown Completed [facility] HIB 4 Dose Schedule Unknown Completed [facility] MMR Unknown Completed [facility] IPV Unknown Completed [facility] Poliovirus, Live, Oral, Trivalent Unknown Completed [facility] TDAP Unknown Completed [facility] DTaP, Unspecified Formulation Unknown Completed [facility] HEPATITIS A Unknown Completed [facility] Hep B, Adol or Pedi Dosage Unknown Completed [facility] HIB 4 Dose Schedule Unknown Completed [facility] Haemophilus influenzae type b vaccine, conjugate unspecified formulation Unknown Completed [facility] HPV Unknown Completed [facility] Meningococcal Polysaccharide (groups A, C, Y and W-135) conjugate vaccine (MCV4P) Unknown Completed [facility] MMR Unknown Completed [facility] IPV Unknown Completed [facility] Poliovirus, Live, Oral, Trivalent Unknown Completed [facility] HPV9 Unknown Completed [facility] TDAP Unknown Completed [facility] DTaP, Unspecified Formulation Unknown Completed [facility] HEPATITIS A Unknown Completed [facility] Hep B, Adol or Pedi Dosage Unknown Completed [facility] HIB 4 Dose Schedule Unknown Completed [facility] Haemophilus influenzae type b vaccine, conjugate unspecified formulation Unknown Completed [facility] HPV Unknown Completed [facility] Meningococcal Polysaccharide (groups A, C, Y and W-135) conjugate vaccine (MCV4P) Unknown Completed [facility] MMR Unknown Completed [facility] IPV Unknown Completed [facility] Poliovirus, Live, Oral, Trivalent Unknown [facility] [facility] HPV9 Unknown Completed [facility] TDAP Unknown Completed [facility] DTaP, Unspecified Formulation Unknown Completed [facility] HEPATITIS A Unknown Completed [facility] Hep B, Adol or Pedi Dosage Unknown Completed [facility] HIB 4 Dose Schedule Unknown Completed [facility] Haemophilus influenzae type b vaccine, conjugate unspecified formulation Unknown Completed [facility] HPV Unknown Completed [facility] Meningococcal Polysaccharide (groups A, C, Y and W-135) conjugate vaccine (MCV4P) Unknown Completed [facility] MMR Unknown Completed [facility] IPV Unknown Completed [facility] Poliovirus, Live, Oral, Trivalent Unknown Completed [facility] HPV9 Unknown Completed [facility] TDAP Unknown Completed [facility] DTaP, Unspecified Formulation Unknown Completed [facility] HEPATITIS A Unknown Completed [facility] Hep B, Adol or Pedi Dosage Unknown Completed [facility] HIB 4 Dose Schedule Unknown Completed [facility] Haemophilus influenzae type b vaccine, conjugate unspecified formulation Unknown Completed [facility] HPV Unknown Completed [facility] Meningococcal Polysaccharide (groups A, C, Y and W-135) conjugate vaccine (MCV4P) Unknown Completed [facility] MMR Unknown Completed [facility] IPV Unknown Completed [facility] Poliovirus, Live, Oral, Trivalent Unknown Completed [facility] HPV9 Unknown Completed [facility] HEPATITIS A Unknown Completed [facility] Haemophilus influenzae type b vaccine, conjugate unspecified formulation Unknown Completed [facility] HPV Unknown Completed [facility] Meningococcal Polysaccharide (groups A, C, Y and W-135) conjugate vaccine (MCV4P) Unknown Completed [facility] HPV9 Unknown Completed [facility] TDAP Unknown Completed [facility] DTaP, Unspecified Formulation Unknown Completed [facility] HEPATITIS A Unknown Completed [facility] Hep B, Adol or Pedi Dosage Unknown Completed [facility] HIB 4 Dose Schedule Unknown Completed [facility] Haemophilus influenzae type b vaccine, conjugate unspecified formulation Unknown Completed [facility] HPV Unknown Completed [facility] Meningococcal Polysaccharide (groups A, C, Y and W-135) conjugate vaccine (MCV4P) Unknown Completed [facility] MMR Unknown Completed [facility] IPV Unknown Completed [facility] Poliovirus, Live, Oral, Trivalent Unknown Completed [facility] HPV9 Unknown Completed [facility] TDAP Unknown Completed [facility] DTaP, Unspecified Formulation Unknown Completed [facility] HEPATITIS A Unknown Completed [facility] Hep B, Adol or Pedi Dosage Unknown Completed [facility] HIB 4 Dose Schedule Unknown Completed [facility] Haemophilus influenzae type b vaccine, conjugate unspecified formulation Unknown Completed [facility] HPV Unknown Completed [facility] Meningococcal Polysaccharide (groups A, C, Y and W-135) conjugate vaccine (MCV4P) Unknown Completed [facility] MMR Unknown Completed [facility] IPV Unknown Completed [facility] Poliovirus, Live, Oral, Trivalent Unknown Completed [facility] HPV9 Unknown Completed [facility] TDAP Unknown Completed [facility] DTaP, Unspecified Formulation Unknown Completed [facility] HEPATITIS A Unknown Completed [facility] Hep B, Adol or Pedi Dosage Unknown Completed [facility] HIB 4 Dose Schedule Unknown Completed [facility] Haemophilus influenzae type b vaccine, conjugate unspecified formulation Unknown Completed [facility] HPV Unknown Completed [facility] Meningococcal Polysaccharide (groups A, C, Y and W-135) conjugate vaccine (MCV4P) Unknown Completed [facility] MMR Unknown Completed [facility] IPV Unknown Completed [facility] Poliovirus, Live, Oral, Trivalent Unknown Completed [facility] HPV9 Unknown Completed [facility] TDAP Unknown Completed [facility] DTaP, Unspecified Formulation Unknown Completed [facility] HEPATITIS A Unknown Completed [facility] Hep B, Adol or Pedi Dosage Unknown Completed [facility] HIB 4 Dose Schedule Unknown Completed [facility] Haemophilus influenzae type b vaccine, conjugate unspecified formulation Unknown Completed [facility] HPV Unknown Completed [facility] Meningococcal Polysaccharide (groups A, C, Y and W-135) conjugate vaccine (MCV4P) Unknown Completed [facility] MMR Unknown Completed [facility] IPV Unknown Completed [facility] Poliovirus, Live, Oral, Trivalent Unknown Completed [facility] HPV9 Unknown Completed [facility] TDAP Unknown Completed [facility] DTaP, Unspecified Formulation Unknown Completed [facility] Hep B, Adol or Pedi Dosage Unknown Completed [facility] HIB 4 Dose Schedule Unknown Completed [facility] MMR Unknown Completed [facility] IPV Unknown Completed [facility] Poliovirus, Live, Oral, Trivalent Unknown Completed [facility] TDAP Unknown Completed [facility] DTaP, Unspecified Formulation Unknown Completed [facility] HEPATITIS A Unknown Completed [facility] Hep B, Adol or Pedi Dosage Unknown Completed [facility] HIB 4 Dose Schedule Unknown Completed [facility] Haemophilus influenzae type b vaccine, conjugate unspecified formulation Unknown Completed [facility] HPV Unknown Completed [facility] Meningococcal Polysaccharide (groups A, C, Y and W-135) conjugate vaccine (MCV4P) Unknown Completed [facility] MMR Unknown Completed [facility] IPV Unknown Completed [facility] Poliovirus, Live, Oral, Trivalent Unknown Completed [facility] HPV9 Unknown Completed [facility] TDAP Unknown Completed [facility] DTaP, Unspecified Formulation Unknown Completed [facility] HEPATITIS A Unknown Completed [facility] Hep B, Adol or Pedi Dosage Unknown Completed [facility] HIB 4 Dose Schedule Unknown Completed [facility] Haemophilus influenzae type b vaccine, conjugate unspecified formulation Unknown Completed [facility] HPV Unknown Completed [facility] Meningococcal Polysaccharide (groups A, C, Y and W-135) conjugate vaccine (MCV4P) Unknown Completed [facility] MMR Unknown Completed [facility] IPV Unknown Completed [facility] Poliovirus, Live, Oral, Trivalent Unknown Completed [facility] HPV9 Unknown Completed [facility] TDAP Unknown Completed [facility] DTaP, Unspecified Formulation Unknown Completed [facility] HEPATITIS A Unknown Completed [facility] Hep B, Adol or Pedi Dosage Unknown Completed [facility] HIB 4 Dose Schedule Unknown Completed [facility] Haemophilus influenzae type b vaccine, conjugate unspecified formulation Unknown Completed [facility] HPV Unknown Completed [facility] Meningococcal Polysaccharide (groups A, C, Y and W-135) conjugate vaccine (MCV4P) Unknown Completed [facility] MMR Unknown Completed [facility] IPV Unknown Completed [facility] Poliovirus, Live, Oral, Trivalent Unknown Completed [facility] HPV9 Unknown Completed [facility] TDAP Unknown Completed [facility] DTaP, Unspecified Formulation Unknown Completed [facility] HEPATITIS A Unknown Completed [facility] Hep B, Adol or Pedi Dosage Unknown Completed [facility] HIB 4 Dose Schedule Unknown Completed [facility] Haemophilus influenzae type b vaccine, conjugate unspecified formulation Unknown Completed [facility] HPV Unknown Completed [facility] Meningococcal Polysaccharide (groups A, C, Y and W-135) conjugate vaccine (MCV4P) Unknown Completed [facility] MMR Unknown Completed [facility] IPV Unknown Completed [facility] Poliovirus, Live, Oral, Trivalent Unknown Completed [facility] HPV9 Unknown Completed [facility] TDAP Unknown Completed [facility] DTaP, Unspecified Formulation Unknown Completed [facility] HEPATITIS A Unknown Completed [facility] Hep B, Adol or Pedi Dosage Unknown Completed [facility] HIB 4 Dose Schedule Unknown Completed [facility] Haemophilus influenzae type b vaccine, conjugate unspecified formulation Unknown Completed [facility] HPV Unknown Completed [facility] Meningococcal Polysaccharide (groups A, C, Y and W-135) conjugate vaccine (MCV4P) Unknown Completed [facility] MMR Unknown Completed [facility] IPV Unknown Completed [facility] Poliovirus, Live, Oral, Trivalent Unknown Completed [facility] HPV9 Unknown Completed [facility] TDAP Unknown Completed [facility] DTaP, Unspecified Formulation Unknown Completed [facility] HEPATITIS A Unknown Completed [facility] Hep B, Adol or Pedi Dosage Unknown Completed [facility] HIB 4 Dose Schedule Unknown Completed [facility] Haemophilus influenzae type b vaccine, conjugate unspecified formulation Unknown Completed [facility] HPV Unknown Completed [facility] Meningococcal Polysaccharide (groups A, C, Y and W-135) conjugate vaccine (MCV4P) Unknown Completed [facility] MMR Unknown Completed [facility] IPV Unknown Completed [facility] Poliovirus, Live, Oral, Trivalent Unknown Completed [facility] HPV9 Unknown Completed [facility] TDAP Unknown Completed [facility] DTaP, Unspecified Formulation Unknown Completed [facility] HEPATITIS A Unknown Completed [facility] Hep B, Adol or Pedi Dosage Unknown Completed [facility] HIB 4 Dose Schedule Unknown Completed [facility] Haemophilus influenzae type b vaccine, conjugate unspecified formulation Unknown Completed [facility] HPV Unknown Completed [facility] Meningococcal Polysaccharide (groups A, C, Y and W-135) conjugate vaccine (MCV4P) Unknown Completed [facility] MMR Unknown Completed [facility] IPV Unknown Completed [facility] Poliovirus, Live, Oral, Trivalent Unknown Completed [facility] HPV9 Unknown Completed [facility] TDAP Unknown Completed [facility] DTaP, Unspecified Formulation Unknown Completed [facility] HEPATITIS A Unknown Completed [facility] Hep B, Adol or Pedi Dosage Unknown Completed [facility] HIB 4 Dose Schedule Unknown Completed [facility] Haemophilus influenzae type b vaccine, conjugate unspecified formulation Unknown Completed [facility] HPV Unknown Completed [facility] Meningococcal Polysaccharide (groups A, C, Y and W-135) conjugate vaccine (MCV4P) Unknown Completed [facility] MMR Unknown Completed [facility] IPV Unknown Completed [facility] Poliovirus, Live, Oral, Trivalent Unknown Completed [facility] HPV9 Unknown Completed [facility] HEPATITIS A Unknown Completed [facility] Haemophilus influenzae type b vaccine, conjugate unspecified formulation Unknown Completed [facility] HPV Unknown Completed [facility] Meningococcal Polysaccharide (groups A, C, Y and W-135) conjugate vaccine (MCV4P) Unknown Completed [facility] HPV9 Unknown Completed [facility] TDAP Unknown Completed [facility] DTaP, Unspecified Formulation Unknown Completed [facility] Hep B, Adol or Pedi Dosage Unknown Completed [facility] HIB 4 Dose Schedule Unknown Completed [facility] MMR Unknown Completed [facility] IPV Unknown Completed [facility] Poliovirus, Live, Oral, Trivalent Unknown Completed [facility] HEPATITIS A Unknown Completed [facility] Haemophilus influenzae type b vaccine, conjugate unspecified formulation Unknown Completed [facility] HPV Unknown Completed [facility] Meningococcal Polysaccharide (groups A, C, Y and W-135) conjugate vaccine (MCV4P) Unknown Completed [facility] HPV9 Unknown Completed [facility] TDAP Unknown Completed [facility] DTaP, Unspecified Formulation Unknown Completed [facility] Hep B, Adol or Pedi Dosage Unknown Completed [facility] HIB 4 Dose Schedule Unknown Completed [facility] MMR Unknown Completed [facility] IPV Unknown Completed [facility] Poliovirus, Live, Oral, Trivalent Unknown Completed [facility] HEPATITIS A Unknown Completed [facility] Haemophilus influenzae type b vaccine, conjugate unspecified formulation Unknown Completed [facility] HPV Unknown Completed [facility] Meningococcal Polysaccharide (groups A, C, Y and W-135) conjugate vaccine (MCV4P) Unknown Completed [facility] HPV9 Unknown Completed [facility] TDAP Unknown Completed [facility] DTaP, Unspecified Formulation Unknown Completed [facility] Hep B, Adol or Pedi Dosage Unknown Completed [facility] HIB 4 Dose Schedule Unknown Completed [facility] MMR Unknown Completed [facility] IPV Unknown Completed [facility] Poliovirus, Live, Oral, Trivalent Unknown Completed [facility] TDAP Unknown Completed [facility] DTaP, Unspecified Formulation Unknown Completed [facility] HEPATITIS A Unknown Completed [facility] Hep B, Adol or Pedi Dosage Unknown Completed [facility] HIB 4 Dose Schedule Unknown Completed [facility] Haemophilus influenzae type b vaccine, conjugate unspecified formulation Unknown Completed [facility] HPV Unknown Completed [facility] Meningococcal Polysaccharide (groups A, C, Y and W-135) conjugate vaccine (MCV4P) Unknown Completed [facility] MMR Unknown Completed [facility] IPV Unknown Completed [facility] Poliovirus, Live, Oral, Trivalent Unknown Completed [facility] HPV9 Unknown Completed [facility] TDAP Unknown Completed [facility] DTaP, Unspecified Formulation Unknown Completed [facility] HEPATITIS A Unknown Completed [facility] Hep B, Adol or Pedi Dosage Unknown Completed [facility] HIB 4 Dose Schedule Unknown Completed [facility] Haemophilus influenzae type b vaccine, conjugate unspecified formulation Unknown Completed [facility] HPV Unknown Completed [facility] Meningococcal Polysaccharide (groups A, C, Y and W-135) conjugate vaccine (MCV4P) Unknown Completed [facility] MMR Unknown Completed [facility] IPV Unknown Completed [facility] Poliovirus, Live, Oral, Trivalent Unknown Completed [facility] HPV9 Unknown Completed [facility] TDAP Unknown Completed [facility] DTaP, Unspecified Formulation Unknown Completed [facility] HEPATITIS A [facility] Hep B, Adol or Pedi Dosage Unknown Completed [facility] HIB 4 Dose Schedule Unknown Completed [facility] Haemophilus influenzae type b vaccine, conjugate unspecified formulation Unknown Completed [facility] HPV Unknown Completed [facility] Meningococcal Polysaccharide (groups A, C, Y and W-135) conjugate vaccine (MCV4P) Unknown Completed [facility] MMR Unknown Completed [facility] IPV Unknown Completed [facility] Poliovirus, Live, Oral, Trivalent Unknown Completed [facility] HPV9 Unknown Completed [facility] TDAP Unknown Completed [facility] DTaP, Unspecified Formulation Unknown Completed [facility] HEPATITIS A Unknown Completed [facility] Hep B, Adol or Pedi Dosage Unknown Completed [facility] HIB 4 Dose Schedule Unknown Completed [facility] Haemophilus influenzae type b vaccine, conjugate unspecified formulation Unknown Completed [facility] HPV Unknown Completed [facility] Meningococcal Polysaccharide (groups A, C, Y and W-135) conjugate vaccine (MCV4P) Unknown Completed [facility] MMR Unknown Completed [facility] IPV Unknown Completed [facility] Poliovirus, Live, Oral, Trivalent Unknown Completed [facility] HPV9 Unknown Completed [facility] TDAP Unknown Completed [facility] DTaP, Unspecified Formulation Unknown Completed [facility] HEPATITIS A Unknown Completed [facility] Hep B, Adol or Pedi Dosage Unknown Completed [facility] HIB 4 Dose Schedule Unknown Completed [facility] Haemophilus influenzae type b vaccine, conjugate unspecified formulation Unknown Completed [facility] HPV Unknown Completed [facility] Meningococcal Polysaccharide (groups A, C, Y and W-135) conjugate vaccine (MCV4P) Unknown Completed [facility] MMR Unknown Completed [facility] IPV Unknown Completed [facility] Poliovirus, Live, Oral, Trivalent Unknown Completed [facility] HPV9 Unknown Completed [facility] Vital Signs Vital Name Observation Time Observation Value Comments S jennifer Systolic blood pressure 2023-12-24 17:35:00 118 mm[Hg] [facility] Diastolic blood pressure 2023-12-24 17:35:00 80 mm[Hg] [facility] Heart rate 2023-12-24 17:35:00 90 /min [facility] Respiratory rate 2023-12-24 17:35:00 15 /min [facility] Oxygen saturation in Arterial blood by Pulse oximetry 2023-12-24 17:35:00 96 /min [facility] Body temperature 2023-12-24 17:05:00 36 Ava [facility] Body height 2023-12-24 16:37:00 165.1 cm [facility] Body weight 2023-12-24 16:37:00 122.154 kg [facility] BMI 2023-12-24 16:37:00 44.81 kg/m2 [facility] Systolic blood pressure 2023-12-24 17:05:00 100 mm[Hg] [facility] Diastolic blood pressure 2023-12-24 17:05:00 56 mm[Hg] [facility] Heart rate 2023-12-24 17:05:00 89 /min [facility] Body temperature 2023-12-24 17:05:00 36 Ava [facility] Respiratory rate 2023-12-24 17:05:00 16 /min [facility] Oxygen saturation in Arterial blood by Pulse oximetry 2023-12-24 17:05:00 94 /min [facility] Body height 2023-12-24 16:37:00 165.1 cm [facility] Body weight 2023-12-24 16:37:00 122.154 kg [facility] BMI 2023-12-24 16:37:00 44.81 kg/m2 [facility] Systolic blood pressure 2023-11-27 19:10:00 111 mm[Hg] [facility] Diastolic blood pressure 2023-11-27 19:10:00 76 mm[Hg] [facility] Heart rate 2023-11-27 19:10:00 111 /min [facility] Respiratory rate 2023-11-27 19:10:00 18 /min [facility] Body height 2023-11-27 19:10:00 165.1 cm [facility] Body weight 2023-11-27 19:10:00 124.286 kg [facility] BMI 2023-11-27 19:10:00 45.60 kg/m2 [facility] Systolic blood pressure 2023-11-26 20:40:00 112 mm[Hg] [facility] Diastolic blood pressure 2023-11-26 20:40:00 74 mm[Hg] [facility] Heart rate 2023-11-26 20:40:00 103 /min [facility] Body temperature 2023-11-26 20:40:00 36.39 Ava [facility] Body height 2023-11-26 20:40:00 165.1 cm [facility] Body weight 2023-11-26 20:40:00 123.923 kg [facility] BMI 2023-11-26 20:40:00 45.46 kg/m2 [facility] Systolic blood pressure 2023-11-22 18:07:00 134 mm[Hg] [facility] Diastolic blood pressure 2023-11-22 18:07:00 89 mm[Hg] [facility] Heart rate 2023-11-22 18:07:00 126 /min [facility] Body temperature 2023-11-22 18:07:00 36.28 Ava [facility] Respiratory rate 2023-11-22 18:07:00 18 /min [facility] Body height 2023-11-22 18:07:00 165.1 cm [facility] Body weight 2023-11-22 18:07:00 125.102 kg [facility] BMI 2023-11-22 18:07:00 45.90 kg/m2 [facility] Oxygen saturation in Arterial blood by Pulse oximetry 2023-11-22 18:07:00 98 /min [facility] Systolic blood pressure 2023-11-19 14:38:00 127 mm[Hg] [facility] Diastolic blood pressure 2023-11-19 14:38:00 86 mm[Hg] [facility] Heart rate 2023-11-19 14:38:00 107 /min [facility] Body temperature 2023-11-19 14:38:00 36.33 Ava [facility] Respiratory rate 2023-11-19 14:38:00 18 /min [facility] Body height 2023-11-19 14:38:00 165.1 cm [facility] Body weight 2023-11-19 14:38:00 123.741 kg [facility] BMI 2023-11-19 14:38:00 45.40 kg/m2 [facility] Oxygen saturation in Arterial blood by Pulse oximetry 2023-11-19 14:38:00 98 /min [facility] Systolic blood pressure 2023-11-18 16:30:00 156 mm[Hg] [facility] Diastolic blood pressure 2023-11-18 16:30:00 113 mm[Hg] [facility] Heart rate 2023-11-18 16:30:00 88 /min [facility] Respiratory rate 2023-11-18 16:30:00 18 /min [facility] Oxygen saturation in Arterial blood by Pulse oximetry 2023-11-18 16:30:00 98 /min [facility] Body temperature 2023-11-18 10:28:00 36.72 Ava [facility] Body height 2023-11-18 10:27:00 165.1 cm [facility] Body weight 2023-11-18 10:27:00 122.471 kg [facility] BMI 2023-11-18 10:27:00 44.93 kg/m2 [facility] Systolic blood pressure 2023-11-08 20:00:00 123 mm[Hg] [facility] Diastolic blood pressure 2023-11-08 20:00:00 91 mm[Hg] [facility] Respiratory rate 2023-11-08 20:00:00 17 /min [facility] Heart rate 2023-11-08 19:00:00 75 /min [facility] Oxygen saturation in Arterial blood by Pulse oximetry 2023-11-08 19:00:00 100 /min [facility] Body temperature 2023-11-08 17:00:00 36.83 Ava [facility] Body height 2023-11-08 15:16:00 165.1 cm [facility] Body weight 2023-11-08 15:16:00 122.471 kg [facility] BMI 2023-11-08 15:16:00 44.93 kg/m2 [facility] Systolic blood pressure 2023-08-06 19:07:00 135 mm[Hg] [facility] Diastolic blood pressure 2023-08-06 19:07:00 93 mm[Hg] [facility] Heart rate 2023-08-06 19:04:00 81 /min [facility] Body temperature 2023-08-06 19:04:00 36.11 Ava [facility] Respiratory rate 2023-08-06 19:04:00 18 /min [facility] Body height 2023-08-06 19:04:00 165.1 cm [facility] Body weight 2023-08-06 19:04:00 140.66 kg [facility] BMI 2023-08-06 19:04:00 51.60 kg/m2 [facility] Oxygen saturation in Arterial blood by Pulse oximetry 2023-08-06 19:04:00 100 /min [facility] Systolic blood pressure 2023-06-21 16:24:00 156 mm[Hg] [facility] Diastolic blood pressure 2023-06-21 16:24:00 98 mm[Hg] [facility] Heart rate 2023-06-21 16:24:00 94 /min [facility] Body temperature 2023-06-21 16:24:00 37.22 Ava [facility] Respiratory rate 2023-06-21 16:24:00 16 /min [facility] Body height 2023-06-21 16:24:00 165.1 cm [facility] Body weight 2023-06-21 16:24:00 127.007 kg [facility] BMI 2023-06-21 16:24:00 46.59 kg/m2 [facility] Oxygen saturation in Arterial blood by Pulse oximetry 2023-06-21 16:24:00 100 /min [facility] Systolic blood pressure 2023-01-24 20:58:00 132 mm[Hg] [facility] Diastolic blood pressure 2023-01-24 20:58:00 96 mm[Hg] [facility] Heart rate 2023-01-24 20:56:00 95 /min [facility] Body temperature 2023-01-24 20:56:00 36.67 Ava [facility] Respiratory rate 2023-01-24 20:56:00 18 /min [facility] Body height 2023-01-24 20:56:00 165.1 cm [facility] Body weight 2023-01-24 20:56:00 138.937 kg [facility] BMI 2023-01-24 20:56:00 50.97 kg/m2 [facility] Oxygen saturation in Arterial blood by Pulse oximetry 2023-01-24 20:56:00 100 /min [facility] Systolic blood pressure 2022-12-25 19:43:00 131 mm[Hg] [facility] Diastolic blood pressure 2022-12-25 19:43:00 86 mm[Hg] [facility] Heart rate 2022-12-25 19:43:00 72 /min [facility] Body temperature 2022-12-25 19:43:00 36.28 Ava [facility] Respiratory rate 2022-12-25 19:43:00 16 /min [facility] Body height 2022-12-25 19:43:00 165.1 cm [facility] Body weight 2022-12-25 19:43:00 138.347 kg [facility] BMI 2022-12-25 19:43:00 50.75 kg/m2 [facility] Oxygen saturation in Arterial blood by Pulse oximetry 2022-12-25 19:43:00 99 /min [facility] Systolic blood pressure 2022-01-20 20:03:00 135 mm[Hg] [facility] Diastolic blood pressure 2022-01-20 20:03:00 87 mm[Hg] [facility] Heart rate 2022-01-20 20:03:00 87 /min [facility] Body temperature 2022-01-20 20:03:00 36.56 Ava [facility] Respiratory rate 2022-01-20 20:03:00 17 /min [facility] Body height 2022-01-20 20:03:00 165.1 cm [facility] Body weight 2022-01-20 20:03:00 118.706 kg [facility] BMI 2022-01-20 20:03:00 43.55 kg/m2 [facility] Systolic blood pressure 2021-12-22 13:14:00 125 mm[Hg] [facility] Diastolic blood pressure 2021-12-22 13:14:00 86 mm[Hg] [facility] Heart rate 2021-12-22 13:14:00 96 /min [facility] Body temperature 2021-12-22 13:14:00 36.61 Ava [facility] Respiratory rate 2021-12-22 13:14:00 20 /min [facility] Body height 2021-12-22 13:14:00 165.1 cm [facility] Body weight 2021-12-22 13:14:00 108.41 kg [facility] BMI 2021-12-22 13:14:00 39.77 kg/m2 [facility] Systolic blood pressure 2021-11-29 12:00:00 142 mm[Hg] [facility] Diastolic blood pressure 2021-11-29 12:00:00 87 mm[Hg] [facility] Heart rate 2021-11-29 12:00:00 79 /min [facility] Body temperature 2021-11-29 12:00:00 36.72 Ava [facility] Respiratory rate 2021-11-29 12:00:00 18 /min [facility] Oxygen saturation in Arterial blood by Pulse oximetry 2021-11-29 12:00:00 100 /min [facility] Body height 2021-11-26 08:32:00 165.1 cm [facility] Body weight 2021-11-26 08:32:00 114.034 kg [facility] BMI 2021-11-26 08:32:00 41.84 kg/m2 [facility] Systolic blood pressure 2021-11-23 14:45:00 133 mm[Hg] [facility] Diastolic blood pressure 2021-11-23 14:45:00 102 mm[Hg] [facility] Heart rate 2021-11-23 14:42:00 77 /min [facility]ive [facility] Body temperature 2021-11-23 14:42:00 36.33 Ava [facility] Respiratory rate 2021-11-23 14:42:00 18 /min [facility] Body height 2021-11-23 14:42:00 165.1 cm [facility] Body weight 2021-11-23 14:42:00 114.17 kg [facility] BMI 2021-11-23 14:42:00 41.89 kg/m2 [facility] Systolic blood pressure 2021-11-11 15:03:00 120 mm[Hg] [facility] Diastolic blood pressure 2021-11-11 15:03:00 82 mm[Hg] [facility] Heart rate 2021-11-11 14:58:00 105 /min [facility] Body temperature 2021-11-11 14:57:00 36.33 Ava [facility] Respiratory rate 2021-11-11 14:57:00 18 /min [facility] Body height 2021-11-11 14:57:00 165.1 cm [facility] Body weight 2021-11-11 14:57:00 113.541 kg [facility] BMI 2021-11-11 14:57:00 41.65 kg/m2 [facility] Systolic blood pressure 2021-10-27 23:55:00 129 mm[Hg] [facility] Diastolic blood pressure 2021-10-27 23:55:00 76 mm[Hg] [facility] Heart rate 2021-10-27 23:55:00 88 [facility] Oxygen saturation in Arterial blood by Pulse oximetry 2021-10-27 23:55:00 96 /min [facility] Body temperature 2021-10-27 23:14:00 37 Ava [facility] Respiratory rate 2021-10-27 23:14:00 18 /min [facility] Body height 2021-10-27 22:26:00 165.1 cm [facility] Body weight 2021-10-27 22:26:00 111.131 kg [facility] BMI 2021-10-27 22:26:00 40.77 kg/m2 [facility] Systolic blood pressure 2021-10-27 18:08:00 140 mm[Hg] [facility] Diastolic blood pressure 2021-10-27 18:08:00 94 mm[Hg] [facility] Heart rate 2021-10-27 18:07:00 88 /min [facility] Body temperature 2021-10-27 18:07:00 35.61 Ava [facility] Respiratory rate 2021-10-27 18:07:00 18 /min [facility] Body weight 2021-10-27 18:07:00 110.224 kg [facility] BMI 2021-10-27 18:07:00 40.44 kg/m2 [facility] Procedures Procedure Date / Time Performed Performing Clinician Source EGD (ENDO) 2023-12-24 17:08:17 Jeimy Jess [facility] EGD (ENDO) 2023-12-24 17:08:17 Jeimy Jess [facility] SURGICAL PATHOLOGY EXAM 2023-12-24 16:57:00 Yisel Hart [facility] ESOPHAGOGASTRODUODENOSCOPY 2023-12-24 16:36:00 Yisel Hart [facility] US OVARY TORSION 2023-11-18 16:33:50 Kelly Simms [facility] URINALYSIS 2023-11-18 15:15:00 Caro Bauer [facility] CT ABDOMEN PELVIS W CONTRAST 2023-11-18 13:38:59 Caro Bauer [facility] LIPASE 2023-11-18 11:10:00 Caro Bauer [facility] TEST, SERUM 2023-11-18 11:10:00 Caro Bauer [facility] COMP. METABOLIC PANEL (53042) 2023-11-18 11:10:00 Caro Bauer [facility] CBC WITH DIFF 2023-11-18 11:10:00 Caro Bauer [facility] COMP. METABOLIC PANEL ([id number]) 2023-11-08 16:43:00 Maame [facility] LIPASE 2023-11-08 16:01:00 [facility] 2023-11-08 16:01:00 Tiff Isabel [facility] URINALYSIS 2023-11-08 16:01:00 Tiff Isabel [facility] POCT TEST 2023-11-08 16:01:00 Tiff Isabel [facility] ZINC, SERUM 2023-08-06 19:42:00 Obi-Franklin [facility] VITAMIN B6, PLASMA 2023-08-06 19:42:00 Jeimy [facility] FREE T4 2023-08-06 19:42:00 Jeimy [facility] THYROID STIMULATING HORMONE 2023-08-06 19:42:00 Jeimy [facility] COMP. METABOLIC PANEL ([id number]) 2023-08-06 19:42:00 Obi-[place]lin [facility] CBC WITH DIFF 2023-08-06 19:42:00 Obsuzanne-Franklin [facility] GLYCOSYLATED HEMOGLOBIN (A1C) 2023-08-06 19:42:00 [facility], [facility] VITAMIN D, 25-OH 2023-08-06 19:42:00 Obi-[place]lin [facility] FREE T3 2023-08-06 19:42:00 Obi-[place]lin [facility] POCT TEST 2023-06-21 16:30:00 Bonita Trivedi [facility] URINALYSIS 2023-06-21 16:29:00 Bonita Trivedi [facility] INSURANCE CORRESPONDENCE 2023-01-15 06:01:00 Doctor Unassigned, [place] [facility] INSURANCE CORRESPONDENCE 2023-01-06 06:01:00 Doctor Unassigned, [place] [facility] GARDASIL 9 (HPV 9V) VACCINE 2022-12-25 20:04:37 Obi-[facility]lin [facility] POCT TEST 2022-01-20 20:18:00 Jacinta Voss [facility] DME/SUPPLY JUSTIFICATION 2022-01-03 06:01:00 Doctor Unassigned, [place] [facility] CBC WITH DIFF 2021-11-28 08:48:00 Adum, Vanessa Cowan [facility] CENTRAL NEURAXIAL BLOCK 2021-11-26 20:52:15 Wilver Owens [facility] HB ABO GROUPING 2021-11-26 09:30:00 Adum, Vanessa Cowan [facility] LACTATE DEHYDROGENASE 2021-11-26 09:29:00 Adum, Vanessa Cowan [facility] URIC ACID 2021-11-26 09:29:00 Adum, Vanessa Cowan [facility] COMP. METABOLIC PANEL ([id number]) 2021-11-26 09:29:00 Adum, Vanessa Cowan [facility] URINE DRUG (IMMUNOASSAY) - COMPREHENSIVE DRUG SCREEN 2021-11-26 09:29:00 Adum, Vanessa Cowan [facility] CBC WITH DIFF 2021-11-26 09:29:00 Adum, Vanessa Cowan [facility] URINALYSIS 2021-11-26 09:29:00 Adum, Vanessa Cowan [facility] HEPATITIS B SURFACE ANTIGEN 2021-11-26 09:29:00 Adum, Vanessa Cowan [facility] ADC OR THOMPSON ONLY - RPR 2021-11-26 09:29:00 Adum, Vanessa Cowan [facility] HIV 1/2 AG-AB WITH REFLEX 2021-11-26 09:29:00 Adum, Vanessa Cowan [facility] CONSENT/REFUSAL FOR DIAGNOSI S AND TREATMENT 2021-11-26 08:08:59 Doctor Unassigned, [place] [facility] POCT URINALYSIS 2021-11-23 14:56:00 Rodrick Pete [facility] POCT URINALYSIS 2021-11-11 14:58:00 Rodrick Pete [facility] CONSENT/REFUSAL FOR DIAGNOSI S AND TREATMENT 2021-10-27 22:13:12 Doctor Unassigned, [place] [facility] POCT URINALYSIS 2021-10-27 18:21:00 Rodrick Pete [facility] Encounters Start Date/Time End Date/Time Encounter Type Admission Type Attending [facility] Care Facility Care Department Encounter ID Source 2023-12-25 00:00:00 2023-12-27 05:31:52 Refill Jess Munson [facility] 1.2840.114 350.1.13.10 4.2.7.2.686 [id number] [facility] 2023-12-25 00:00:00 2023-12-25 12:23:25 Refill Yann Nayak [facility] ([facility]) 1.2840.114 350.1.13.10 4.2.7.2.686 [id number] [facility] 2023-12-24 00:00:00 2023-12-24 16:00:22 Patient Secure Msg Yisel Hart [facility] ([facility]) 1..114 350.1.13.10 4.2.7.2.686 [id number] [facility] 2023-12-24 09:50:00 2023-12-24 11:47:00 Outpatient R YISEL HART [facility] GIE [id number] [facility] 2023-12-24 09:50:00 2023-12-24 11:47:00 Hospital Encounter Yisel Hart [facility] 1..114 350.1.13.10 4.2.7.2.686 [id number] [facility] 2023-12-24 10:45:00 2023-12-24 11:15:00 Surgery Yisel Hart [facility] 1..114 350.1.13.10 4.2.7.2.686 [id number] [facility] 2023-12-18 14:30:00 2023-12-18 14:30:00 Outpatient R KONRAD ORDOÑEZ OGECHUKWU [facility] [id number] [facility] 2023-12-18 13:00:00 2023-12-18 13:00:00 Outpatient R [facility] [id number] 2023-12-17 00:00:00 2023-12-18 11:14:39 [facility] 1..114 350.1.13.10 4.2.7.2.686 [id number] [facility] 2023-12-12 08:40:00 2023-12-12 08:40:00 Outpatient R OBI-FRANKLIN JESS OBI-FRANKLIN JESS [facility] [id number] [facility] 2023-12-07 00:00:00 2023-12-10 08:32:14 Refill Konrad Ordoñez [facility] [id number] 350.1.13.10 4.2.7.2.686 [id number] [facility] 2023-11-30 00:00:00 2023-12-04 09:32:31 Patient Secure Msg MeiTianna [facility] ([facility]) 1.2840.114 350.1.13.10 4.2.7.2.686 [id number] [facility] 2023-11-30 15:45:00 2023-11-30 15:45:00 Outpatient R ISAAC SHAY [facility] [id number] [facility] 2023-11-27 14:00:00 2023-11-27 14:37:01 Outpatient R VANESSA LEYVA VIVIAN [facility] [id number] [facility] 2023-11-27 14:00:00 2023-11-27 14:37:01 Office Visit Vanessa Leyva [facility] 1.20.114 350.1.13.10 4.2.7.2.686 [id number] [facility] 2023-11-26 15:00:00 2023-11-26 15:30:00 [facility] 1.2.840.114 350.1.13.10 4.2.7.2.686 [id number] [facility] 2023-11-26 15:00:00 2023-11-26 15:00:00 Outpatient R JOSE DE JESUS MEDINA VIEN [facility] [id number] [facility] 2023-11-22 13:00:00 2023-11-22 13:30:00 Office Visit Tianna Mei [facility] ([facility]) 1..840.114 350.1.13.10 4.2.7.2.686 [id number] [facility] 2023-11-22 13:00:00 2023-11-22 13:00:00 Outpatient R TIANNA MEI ASHLEY [facility] [id number] [facility] 2023-11-20 10:00:00 2023-11-20 10:00:00 Outpatient R [facility] [id number] [facility] 2023-11-19 10:30:00 2023-11-19 10:30:00 Icer Hand Visit 2, Adc Lab Obi-Jess Reid 2, [facility] 1..840.114 350.1.13.10 4.2.7.2.686 [id number] [facility] 2023-11-19 09:40:00 2023-11-19 10:03:53 Outpatient R OBI-JESS REID OBI-Valerie REIDZOMA [facility] [id number] [facility] 2023-11-19 09:40:00 2023-11-19 10:03:53 [facility] 1.2.840.114 350.1.13.10 4.2.7.2.686 [id number] [facility] 2023-11-15 00:00:00 2023-11-18 18:57:29 [facility]ill [facility] 1.2.840.114 350.1.13.10 4.2.7.2.686 [id number] [facility] 2023-11-16 00:00:00 2023-11-18 18:53:00 [facility] [facility] 1.2.840.114 350.1.13.10 4.2.7.2.686 [id number] [facility] 2023-11-18 05:34:00 2023-11-18 13:08:00 Emergency KELLY CUEVAS ROBERT [facility] ERT [id number] [facility] 2023-11-18 05:34:00 2023-11-18 13:08:00 Emergency Caro Bauer Robert Lee [facility] 1.2840.114 350.1.13.10 4.2.7.2.686 [id number] [facility] 2023-11-08 10:16:00 2023-11-08 16:16:00 Emergency TIFF VILLAFUERTE ERICA [facility] ERT [id number] [facility] 2023-11-08 10:16:00 2023-11-08 16:16:00 Emergency Tiff Isabel [facility] 1.2840.114 350.1.13.10 4.2.7.2.686 [id number] [facility] 2023-10-16 00:00:00 2023-10-19 05:44:04 Refill Obi-[place]lin , [facility] 1.2.840.114 350.1.13.10 4.2.7.2.686 [id number] [facility] 2023-10-15 00:00:00 2023-10-16 10:48:03 Refill Obi-[place] Jess [facility] 1.2.840.114 350.1.13.10 4.2.7.2.686 [id number] [facility] [facility]23 09:40:00 2023 09:40:00 Outpatient R OBI-FRANKLIN , JESS [facility] , [facility] [id number] [facility] 2023-10-01 00:00:00 2023-10-03 15:28:49 [facility] 1.2.840.114 350.1.13.10 4.2.7.2.686 [id number] [facility] 2023-09-12 00:00:00 2023-09-13 13:09:32 Refill Obi-Franklin [facility] BUILDING 1.2.840.114 350.1.13.10 4.2.7.2.686 [id number] [id number] [facility] 2023-09-05 10:40:00 2023-09-05 10:40:00 Outpatient R OBI-FRANKLIN , JESS OBI[facility]FRANKLIN , [facility] [id number] [facility] 2023-08-13 14:40:00 2023-08-13 14:40:00 Outpatient R OBI-FRANKLIN , JESS OBI-FRANKLIN , [facility] [id number] [facility] 2023-08-06 14:30:00 2023-08-06 15:25:53 Icer Hand Visit 2, Adc Lab Obi-Franklin , [facility] NAL BUILDING 1.2.840.114 350.1.13.10 4.2.7.2.686 [id number] [facility] 2023-08-06 14:30:00 2023-08-06 14:30:00 Outpatient R OBI-FRANKLIN , JESS OBI-FRANKLIN , JESS [facility] [id number] [facility] 2023-08-06 13:40:00 2023-08-06 14:29:31 [facility] 1.2.840.114 350.1.13.10 4.2.7.2.686 [id number] [id number] [facility] 2023-08-06 08:40:00 2023-08-06 08:40:00 Outpatient R OBI-FRANKLIN , JESS OBI-FRANKLIN , [facility] [id number] [facility] 2023-07-31 00:00:00 2023-08-01 12:29:54 Telephone RamosKonrad [facility] BUILDING 1.2.840.114 350.1.13.10 4.2.7.2.686 [id number] [id number] [facility] 2023-07-31 00:00:00 2023-07-31 18:10:27 Refill Obsuzanne-Franklin [facility] NAL BUILDING 1.2.840.114 350.1.13.10 4.2.7.2.686 [id number] 044 [id number] [facility] 2023-07-30 00:00:00 2023-07-31 09:10:12 Patient Secure Msg Obi-Franklin [facility] NAL BUILDING 1.2.840.114 350.1.13.10 4.2.7.2.686 [id number] 044 [id number] [facility] 2023-07-25 00:00:00 2023-07-25 09:15:22 [facility] BUILDING 1.2.840.114 350.1.13.10 4.2.7.2.686 [id number] 044 [id number] [facility] 2023-05-29 00:00:00 2023-06-30 18:07:42 Patient Secure Msg Obi-Franklin [facility] 1.2.840.114 350.1.13.10 4.2.7.2.686 [id number] 044 [id number] [facility] 2023-06-21 11:31:00 2023-06-21 12:29:00 Emergency X BONITA TRIVEDI [facility] [id number] [facility] 2023-06-21 11:31:00 2023-06-21 12:29:00 Emergency Bonita Trivedi [facility] 1.2.840.114 350.1.13.10 4.2.7.2.686 [id number] 084 [id number] [facility] 2023-06-18 08:40:00 2023-06-18 08:40:00 Outpatient R OBI-FRANKLIN , JESS OBI-FRANKLIN , [facility] [id number] [facility] 2023-06-12 00:00:00 2023-06-12 00:00:00 Patient Secure Msg [facility]lin , [facility] 1.2.840.114 350.1.13.10 4.2.7.2.686 [id number] [id number] [facility] 2023-06-06 13:00:00 2023-06-06 13:00:00 Outpatient R OBI-FRANKLIN , JESS OBI[facility]FRANKLIN , [facility] [id number] [facility] 2023-05-29 00:00:00 2023-05-29 00:00:00 Refill Obi-Franklin [facility] PROFESSIO NAL BUILDING 1.2.840.114 350.1.13.10 4.2.7.2.686 [id number] 044 [id number] [facility] 2023-04-25 15:00:00 2023-04-25 15:00:00 Outpatient R OBI-FRANKLIN , JESS OBI-FRANKLIN , [facility] [id number] [facility] 2023-04-23 00:00:00 2023-04-23 00:00:00 [facility] 1.2.840.114 350.1.13.10 4.2.7.2.686 [id number] [id number] [facility] 2023-04-11 00:00:00 2023-04-11 00:00:00 Refill Obi-Franklin [facility] NAL BUILDING 1.2.840.114 350.1.13.10 4.2.7.2.686 [id number] [id number] [facility] 2023-04-05 00:00:00 2023-04-05 00:00:00 [facility] 1.2.840.114 350.1.13.10 4.2.7.2.686 [id number] 044 [id number] [facility] 2023-04-03 00:00:00 2023-04-03 00:00:00 Telephone [facility] 1.2.840.114 350.1.13.10 4.2.7.2.686 [id number] 044 [id number] [facility] 2023-04-03 00:00:00 2023-04-03 00:00:00 Patient Secure Msg [facility] 1.2.840.114 350.1.13.10 4.2.7.2.686 [id number] [id number] [facility] 2023-04-01 00:00:00 2023-04-01 00:00:00 Refill ObJess Ramesh [facility] BUILDING 1.2.840.114 350.1.13.10 4.2.7.2.686 [id number] 044 [id number] [facility] 2023-03-02 00:00:00 2023-03-02 00:00:[address]-Franklin [facility] 1.2.840.114 350.1.13.10 4.2.7.2.686 [id number] [id number] [facility] 2023-02-19 00:00:00 2023-02-19 00:00:00 [facility] 1.2.840.114 350.1.13.10 4.2.7.2.686 [id number] 044 [id number] [facility] 2023-01-26 00:00:00 2023-01-26 00:00:00 Patient Secure Msg Doctor Unassigned, [facility] 1.2.840.114 350.1.13.10 4.2.7.2.686 [id number] 044 [id number] [facility] 2023-01-24 15:00:00 2023-01-24 15:25:03 Outpatient R OBI-FRANKLIN , [facility] [id number] [facility] 2023-01-24 15:00:00 2023-01-24 15:25:03 [facility] 1.2.840.114 350.1.13.10 4.2.7.2.686 [id number] [id number] [facility] 2023-01-16 00:00:00 2023-01-16 00:00:[address] [facility] 1.2.840.114 350.1.13.10 4.2.7.2.686 [id number] 044 [id number] [facility] 2023-01-15 00:00:00 2023-01-15 00:00:00 Orders Only Doctor Unassigned, [facility] 1.2.840.114 350.1.13.10 4.2.7.2.686 [id number] [facility] 2023-01-15 00:00:00 2023-01-15 00:00:00 Patient Secure Msg Doctor Unassigned, [facility] 1.2.840.114 350.1.13.10 4.2.7.2.686 [id number] 044 [id number] [facility] 2023-01-08 00:00:00 2023-01-08 00:00:00 [facility] 1.2.840.114 350.1.13.10 4.2.7.2.686 [id number] 044 [id number] [facility] 2023-01-06 00:00:00 2023-01-06 00:00:00 Orders Only Doctor Unassigned, [facility] 1.2.840.114 350.1.13.10 4.2.7.2.686 [id number] [facility] 2023-01-05 00:00:00 2023-01-05 00:00:00 Telephone [facility] 1.2.840.114 350.1.13.10 4.2.7.2.686 [id number] 044 [id number] [facility] 2023-01-03 00:00:00 2023-01-03 00:00:00 Telephone Jeimy [facility] BUILDING 1.2.840.114 350.1.13.10 4.2.7.2.686 [id number] 044 [id number] [facility] 2023-01-01 00:00:00 2023-01-01 00:00:00 Patient Secure Msg Doctor Unassigned, [place] [facility] 1.2.840.114 350.1.13.10 4.2.7.2.686 [id number] 044 [id number] [facility] 2022-12-28 00:00:00 2022-12-28 00:00:00 Patient Secure Msg Jeimy [facility] 1.2.840.114 350.1.13.10 4.2.7.2.686 [id number] 044 [id number] [facility] 2022-12-26 00:00:00 2022-12-26 00:00:00 Telephone Jeimy Jess [facility] 1.2.840.114 350.1.13.10 4.2.7.2.686 [id number] 044 [id number] [facility] 2022-12-25 14:45:00 2022-12-25 15:00:00 Icer Hand Visit 2, Adc Lab Jeimy [facility] BUILDING 1.2.840.114 350.1.13.10 4.2.7.2.686 [id number] [facility] 2022-12-25 14:00:00 2022-12-25 14:14:40 Outpatient R OBI-FRANKLIN , JESS OBI-FRANKLIN , JESS [facility] [id number] [facility] 2022-12-25 14:00:00 2022-12-25 14:14:40 Office Visit Obi-Franklin Jess [facility] ..840.114 350.1.13.10 4.2.7.2.686 [id number] [id number] [facility] 2022-12-19 10:00:00 2022-12-19 10:00:00 Outpatient R OBI-FRANKLIN , JESS OBI-FRANKLIN , JESS [facility] [id number] [facility] 2022-07-19 15:30:00 2022-07-19 15:30:00 Outpatient R KAMILA MILAN [facility] [id number] [facility] 2022-04-14 10:00:00 2022-04-14 10:00:00 Outpatient R [facility] [id number] [facility] 2022-01-20 13:00:00 2022-01-20 14:43:14 Outpatient R JACINTA VOSS [facility] [id number] [facility] 2022-01-20 13:00:00 2022-01-20 14:43:14 Office Visit Provider, Dylan-Rmchp Meche Clayton Brenda A [facility] BUSINESS PROCESS ARCHITECT [facility] 02.20.840.114 350.1.13.10 4.2.7.2.686 [id number] [facility] 2022-01-16 10:45:00 2022-01-16 10:45:00 Outpatient R MECHE ROBERSON [facility] [id number] [facility] 2022-01-05 00:00:00 2022-01-05 00:00:00 Encounter 1.2.840.1 35128.1.1 3.104.2.7 .2.181479 1.2.840.114 350.1.13.10 4.2.7.2.696 [id number] [facility] 2022-01-03 00:00:00 2022-01-03 00:00:00 Orders Only Doctor Unassigned, [facility] 1.2.840.114 350.1.13.10 4.2.7.2.686 [id number] [facility] 2021-12-29 00:00:00 2021-12-29 00:00:00 Patient Secure Msg Rodrick Pete [facility] BUSINESS PROCESS ARCHITECT [facility] CHILD [facility] 1.2840.114 350.1.13.10 4.2.7.2.686 [id number] 107 [id number] [facility] 2021-12-22 07:45:00 2021-12-22 08:42:11 Outpatient R JACINTA VOSS [facility] [id number] [facility] 2021-12-22 07:45:00 2021-12-22 08:42:11 Routine Visit Provider, Ang-Rmchp Jacinta Parra [facility] BUSINESS PROCESS ARCHITECT [facility] & CHILD [facility] 1.2840.114 350.1.13.10 4.2.7.2.686 [id number] 107 [id number] [facility] 2021-12-03 00:00:00 2021-12-03 00:00:00 Patient Secure Msg Doctor Unassigned, [facility] 1.2840.114 350.1.13.10 4.2.7.2.686 [id number] [facility] 2021-11-30 00:00:00 2021-11-30 00:00:00 Patient Secure Msg Rodrick Pete [facility] BUSINESS PROCESS ARCHITECT [facility] & CHILD [facility] 1.2.840.114 350.1.13.10 4.2.7.2.686 [id number] 107 [id number] [facility] 2021-11-26 03:26:00 2021-11-29 10:05:00 Inpatient P VANESSA LEYVA [facility] [id number] [facility] 2021-11-26 03:26:00 2021-11-29 10:05:00 Hospital Encounter Vanessa Leyva [facility] 1.2.840.114 350.1.13.10 4.2.7.2.686 [id number] [facility] 2021-11-26 15:34:00 2021-11-27 08:48:00 Anesthesia Event Wilver Owens [facility] 1.2.840.114 350.1.13.10 4.2.7.2.686 [id number] 083 [id number] [facility] 2021-11-26 10:17:37 2021-11-26 10:17:37 Anesthesia Event Wilver Owens [facility] 1.2.840.114 350.1.13.10 4.2.7.2.686 [id number] [id number] [facility] 2021-11-23 09:45:00 2021-11-23 10:25:58 Outpatient LOVE SANTA EMILY [facility] [id number] [facility] 2021-11-23 09:45:00 2021-11-23 10:25:58 Routine Visit Provider, GiovannaRmchp Rodrick Norton Emily J. [facility] BUSINESS PROCESS ARCHITECT [facility] & CHILD [facility] 1.2.840.114 350.1.13.10 4.2.7.2.686 [id number] 107 [id number] [facility] 2021-11-11 09:45:00 2021-11-11 10:12:23 Routine Visit PeteRodrick [facility] BUSINESS PROCESS ARCHITECT [facility] 1.840.114 350.1.13.10 4.2.7.2.686 [id number] 107 [id number] [facility] 2021-11-11 09:45:00 2021-11-11 10:12:23 Outpatient R PETERODRICK [facility] [id number] [facility] 2021-11-11 00:00:00 2021-11-11 00:00:00 Patient Secure Msg PeteRodrick [facility] BUSINESS PROCESS ARCHITECT [facility] 1..840.114 350.1.13.10 4.2.7.2.686 [id number] 107 [id number] [facility] 2021-11-09 00:00:00 2021-11-09 00:00:00 Telephone Rodrick Pete [facility] BUSINESS PROCESS ARCHITECT [facility] 1..840.114 350.1.13.10 4.2.7.2.686 [id number] 107 [id number] [facility] 2021-11-07 00:00:00 2021-11-07 00:00:00 Refill Rodrick Pete [facility] BUSINESS PROCESS ARCHITECT [facility] 1..840.114 350.1.13.10 4.2.7.2.686 [id number] 107 [id number] [facility] 2021-10-27 17:35:00 2021-10-27 19:05:00 Outpatient X BRENDA VELÁSQUEZ [facility] [id number] [facility] 2021-10-27 17:35:00 2021-10-27 19:05:00 Emergency Brenad Velásquez K Paige [facility] 1.2840.114 350.1.13.10 4.2.7.2.686 [id number] [facility] 2021-10-27 12:45:00 2021-10-27 13:34:39 Outpatient R RODRICK PETE [facility] [id number] [facility] 2021-10-27 12:45:00 2021-10-27 13:34:39 Routine Visit Rodrick Pete [facility] BUSINESS PROCESS ARCHITECT [facility] 1.840.114 350.1.13.10 4.2.7.2.686 [id number] 107 [id number] [facility] 2021-10-27 12:45:00 2021-10-27 12:45:00 Outpatient R KIKI [facility] [id number] [facility] 2021-10-27 00:00:00 2021-10-27 00:00:00 Orders Only Doctor Unassigned, [facility] 1.840.114 350.1.13.10 4.2.7.2.686 [id number] [facility] 2021-10-26 00:00:00 2021-10-26 00:00:00 Abstract Rodrick Pete [facility] BUSINESS PROCESS ARCHITECT [facility] CHILD [facility] 1.0.114 350.1.13.10 4.2.7.2.686 [id number] 107 [id number] [facility] 2021-10-21 09:45:00 2021-10-21 10:30:00 Icer Hand Visit Ultrasound, Vinh Stone [facility] BUSINESS PROCESS ARCHITECT [facility] CH[facility] 1.2840.114 350.1.13.10 4.2.7.2.686 [id number] [facility] 2021-10-21 09:45:00 2021-10-21 09:45:00 Outpatient VINH JOYIN, VINH [facility] [id number] [facility] 2021-10-18 00:00:00 2021-10-18 00:00:00 Patient Secure Msg Doctor Unassigned, [place] [facility] BUSINESS PROCESS ARCHITECT [facility]ERNAL & CHILD [facility] 1..840.114 350.1.13.10 4.2.7.2.686 [id number] 107 [id number] [facility] 2021-10-18 00:00:00 2021-10-18 00:00:00 Telephone Rodrick Pete [facility] BUSINESS PROCESS ARCHITECT [facility] CH[facility] 1..840.114 350.1.13.10 4.2.7.2.686 [id number] 107 [id number] [facility] 2021-10-14 08:00:00 2021-10-14 08:34:31 Outpatient R RODRICK PETE [facility] [id number] [facility] 2021-10-14 08:00:00 2021-10-14 08:34:31 Routine Visit Rodrick Pete [facility] 1..840.114 350.1.13.10 4.2.7.2.686 [id number] 107 [id number] [facility] 2021-09-29 10:45:00 2021-09-29 11:39:29 Outpatient R RODRICK PETE [facility] [id number] [facility] 2021-09-29 10:45:00 2021-09-29 11:39:29 Routine Visit Rodrick Pete [facility] BUSINESS PROCESS ARCHITECT [facility] 1..840.114 350.1.13.10 4.2.7.2.686 [id number] 107 [id number] [facility] 2021-09-29 10:45:00 2021-09-29 10:45:00 Outpatient R RODRICK PETE [facility] [id number] [facility] 2021-09-16 00:00:00 2021-09-16 00:00:00 Patient Secure Msg Doctor Unassigned, [place] [facility] 1.2840.114 350.1.13.10 4.2.7.2.686 [id number] [facility] 2021-09-16 00:00:00 2021-09-16 00:00:00 Telephone Rodrick Pete [facility] BUSINESS PROCESS ARCHITECT [facility] CH[facility] 1.840.114 350.1.13.10 4.2.7.2.686 [id number] 107 [id number] [facility] 2021-09-16 00:00:00 2021-09-16 00:00:00 Telephone Rodrick Pete [facility] BUSINESS PROCESS ARCHITECT [facility] 1.84.114 350.1.13.10 4.2.7.2.686 [id number] 107 [id number] [facility] 2021-09-15 10:45:00 2021-09-15 11:53:13 Outpatient R RODRICK PETE [facility] [id number] [facility] 2021-09-15 10:45:00 2021-09-15 11:53:13 Routine Visit Rodrick Pete [facility] BUSINESS PROCESS ARCHITECT [facility] 1.84.114 350.1.13.10 4.2.7.2.686 [id number] 107 [id number] [facility] 2021-09-13 00:00:00 2021-09-13 00:00:00 Refill Rodrick Pete [facility] BUSINESS PROCESS ARCHITECT [facility] CHILD [facility] 1.2.840.114 350.1.13.10 4.2.7.2.686 [id number] 107 [id number] [facility] 2021-08-23 08:45:00 2021-08-23 22:46:00 Outpatient X BRENDA VELÁSQUEZ [facility] [id number] [facility] 2021-08-23 08:45:00 2021-08-23 22:46:00 Emergency Martinez, Brenda Avery [facility] 1.2.840.114 350.1.13.10 4.2.7.2.686 [id number] [facility] 2021-08-18 10:30:00 2021-08-18 10:44:10 Outpatient R RODRICK PETE [facility] [id number] [facility] 2021-08-18 10:30:00 2021-08-18 10:44:10 Routine Visit Rodrick Pete [facility] BUSINESS PROCESS ARCHITECT [facility] 1.2.840.114 350.1.13.10 4.2.7.2.686 [id number] 107 [id number] [facility] 2021-08-11 00:00:00 2021-08-11 00:00:00 Patient Secure Msg Rodrick Pete [facility] BUSINESS PROCESS ARCHITECT [facility] 1.2.840.114 350.1.13.10 4.2.7.2.686 [id number] 107 [id number] [facility] 2021-08-11 00:00:00 2021-08-11 00:00:00 Refill Rodrick Pete [facility] BUSINESS PROCESS ARCHITECT [facility] 1.2.840.114 350.1.13.10 4.2.7.2.686 [id number] 107 [id number] [facility] 2021-08-11 00:00:00 2021-08-11 00:00:00 Refill Rodrick Pete [facility] BUSINESS PROCESS ARCHITECT [facility] 1.2.840.114 350.1.13.10 4.2.7.2.686 [id number] 107 [id number] [facility] 2021-08-11 00:00:00 2021-08-11 00:00:00 Refill Rodrick Pete [facility] BUSINESS PROCESS ARCHITECT [facility] CHILD [facility] 1.2.840.114 350.1.13.10 4.2.7.2.686 [id number] 107 [id number] [facility] 2021-08-02 00:00:00 2021-08-02 00:00:00 Abstract Rodrick Pete [facility] BUSINESS PROCESS ARCHITECT [facility] CHILD [facility] 1.2.840.114 350.1.13.10 4.2.7.2.686 [id number] [facility] 2021-08-01 00:00:00 2021-08-01 00:00:00 Patient Secure Msg Doctor Unassigned, [place] [facility] BUSINESS PROCESS ARCHITECT [facility] 1.2.840.114 350.1.13.10 4.2.7.2.686 [id number] [facility] 2021-07-29 09:30:00 2021-07-29 10:45:00 Icer Hand Visit Ultrasound, GiovannaRodrick Kamara Antonio F [facility] 1..840.114 350.1.13.10 4.2.7.2.686 [id number] [facility] 2021-07-29 09:30:00 2021-07-29 09:30:00 Outpatient P [facility] [id number] [facility] 2021-07-29 09:30:00 2021-07-29 09:30:00 Outpatient P MADDIE ROMEO [facility] [id number] [facility] 2021-07-29 08:00:00 2021-07-29 08:36:27 Icer Hand Visit Lab, GiovannaRmchRodrick Lopez [facility] BUSINESS PROCESS ARCHITECT [facility] 1.840.114 350.1.13.10 4.2.7.2.686 [id number] [facility] 2021-07-23 00:00:00 2021-07-23 00:00:00 Patient Secure Msg Doctor Unassigned, [place] [facility] 1.840.114 350.1.13.10 4.2.7.2.686 [id number] [facility] 2021-07-21 09:00:00 2021-07-21 10:12:55 Outpatient RODRICK DENNIS [facility] [id number] [facility] 2021-07-21 09:00:00 2021-07-21 10:12:55 Routine Visit Rodrick Pete [facility] BUSINESS PROCESS ARCHITECT [facility] 1.840.114 350.1.13.10 4.2.7.2.686 [id number] [facility] 2021-07-21 09:00:00 2021-07-21 10:12:55 Outpatient RODRICK DENNIS [facility] [id number] [facility] 2021-07-21 09:00:00 2021-07-21 09:00:00 Outpatient RODRICK DENNIS [facility] [id number] [facility] 2021-07-21 09:00:00 2021-07-21 09:00:00 Outpatient RODRICK DENNIS [facility] [id number] [facility] 2021-07-17 02:36:00 2021-07-17 06:54:00 Emergency X CARO BAUER [facility] ERT [id number] [facility] 2021-07-17 02:36:00 2021-07-17 06:54:00 Emergency Caro Bauer [facility] 1.840.114 350.1.13.10 4.2.7.2.686 [id number] [facility] 2021-07-12 00:00:00 2021-07-12 00:00:00 Telephone Kiki Petecuauhtemoc Mosquera [facility] BUSINESS PROCESS ARCHITECT [facility] 1.2.840.114 350.1.13.10 4.2.7.2.686 [id number] [facility] 2021-07-06 00:00:00 2021-07-06 00:00:00 Telephone Kiki Petecuauhtemoc Demetri [facility] BUSINESS PROCESS ARCHITECT [facility] 1.2.840.114 350.1.13.10 4.2.7.2.686 [id number] [facility] 2021-06-28 01:26:00 2021-06-29 10:10:00 Outpatient X SHAZIA BRENDA [facility] [id number] [facility] 2021-06-28 01:26:00 2021-06-29 10:10:00 Emergency Alayna Bear S Eduardo Velásquezn [facility] 1.2.840.114 350.1.13.10 4.2.7.2.686 [id number] [facility] 2021-06-27 20:49:00 2021-06-27 20:59:00 Emergency X [facility] ERT [id number] [facility] 2021-06-27 20:49:00 2021-06-27 20:59:00 Emergency [facility] 1.2.840.114 350.1.13.10 4.2.7.2.686 [id number] [facility] 2021-06-24 00:00:00 2021-06-24 00:00:00 Patient Secure Msg PeteRodrick [facility] BUSINESS PROCESS ARCHITECT [facility] 1.2.840.114 350.1.13.10 4.2.7.2.686 [id number] [facility] 2021-06-24 00:00:00 2021-06-24 00:00:00 Telephone Rodrick Pete [facility] BUSINESS PROCESS ARCHITECT [facility]ILD [facility] 1.2.840.114 350.1.13.10 4.2.7.2.686 [id number] [facility] 2021-06-23 14:00:00 2021-06-23 15:33:45 Outpatient R RODRICK PETE [facility] [id number] [facility] 2021-06-23 14:00:00 2021-06-23 15:33:45 Initial Visit Rodrick Pete [facility] BUSINESS PROCESS ARCHITECT [facility] 1.2.840.114 350.1.13.10 4.2.7.2.686 [id number] [facility] 2021-06-23 14:00:00 2021-06-23 15:33:45 Outpatient R KIKI PETECUAUHTEMOC [facility] [id number] [facility] 2021-06-23 14:00:00 2021-06-23 15:33:45 [facility] [id number] [facility] 2021-06-23 00:00:00 2021-06-23 00:00:00 Orders Only Doctor Unassigned, [facility] 1.2.840.114 350.1.13.10 4.2.7.2.686 [id number] [facility] 2021-06-22 08:04:00 2021-06-22 13:00:00 Emergency X ANGUS DWYER [facility] [id number] [facility] 2021-06-22 08:04:00 2021-06-22 13:00:00 [facility] 1.2.840.114 350.1.13.10 4.2.7.2.686 [id number] [facility] 2021-06-21 22:18:00 2021-06-21 23:26:00 Emergency Caro Bauer [facility] 1.2.840.114 350.1.13.10 4.2.7.2.686 [id number] [facility] 2021-06-21 22:18:00 2021-06-21 23:26:00 Emergency X CARO BAUER [facility] ERT [id number] [facility] 2021-06-21 22:18:00 2021-06-21 23:26:00 Emergency X CARO BAUER [facility] ERT [id number] [facility] 2021-06-11 12:44:00 2021-06-14 18:06:00 Inpatient X JOSE DE JESUS MEDINA [facility] [id number] [facility] 2021-06-11 12:44:00 2021-06-14 18:06:00 Hospital Encounter Abdullahi Gomez Christopher Adum, Vivian L Lam, Vien [facility] 1.2.840.114 350.1.13.10 4.2.7.2.686 [id number] [facility] 2021-05-30 23:49:00 2021-06-03 14:41:00 Hospital Encounter Abdullahi Gomez [facility] 1.2.840.114 350.1.13.10 4.2.7.2.686 [id number] [facility] 2021-05-30 23:49:00 2021-06-03 14:41:00 Inpatient X EDITH TERRY SHANNON [facility] [id number] [facility] Results Test Description Test Time Test Comments Results Result Co mments Source [facility] OV[facility] [id number] 16:40:41EXAM: US OVARY TORSION HISTORY: 28 years-old Female; Provided indication: eval for torsion; pelvicpain; bilateral 5.1cm cysts seen on CT . LMP = 4Pregnancy test = Negative. TECHNIQUE: Transabdominal and transvaginal ultrasound imaging and colorDoppler evaluation of the pelvis was performed. Spectral Doppler evaluationof the ovaries was performed. Adolescent Coordinator images were obtained for therecord. COMPARISON: Same day CT pelvis FINDINGS: Uterus: The uterus measures 7.5 x 3.9 x 5.2 cm. Theendometrium is normal inappearance and is 0.4 cm [...] x 1.6 x 3.1 cm with a vo lume of 9.6 ml.A dominant follicle is noted..Normal arterial and venous waveforms arevisualized. Normal flow is seen on color Doppler.[facility] ABDOMEN PELVIS W [id number] 14:33:00Indication: Nausea/vomiting ? Comparison: None RL: [id number] ORDERING PHYSICIAN: ?CARO SAAVEDRA TECHNIQUE: Axial CT images of the abdomen [...] evidence of bowel obstruction.The appendix is visualized andisnot inflamed. Bladder/reproductive organs: Urinary bladder is unremarkable. Bilateralovarian cysts measuring up to 5.1 cm and the right ovary. Bone and soft tissue: No acute osseous abnormality is noted.[facility]neyPregnancy Test, [id number] 11:59:46* Test Item Value Reference Range Interpretation Comme nts PREG SERUM (test code = 4044285124) Negative RUMA (test code = RUMA) Less than 10 IU/L. ?If low titer or ectopic is suspected, resubmit specimen in 48-72 hours. [facility]ney[facility] Metabolic [id number] 11:58:40* Test Item Value Reference Range Interpretation Comme nts NA (test code = 5879553481) 138 mmol/L 135-145 K (test code = 2613164557) 3.5 mmol/L 3.5-5.0 CL (test code = 1065405361) 106 mmol/L 98-108 CO2 TOTAL (test code = 4754343267) 23 mmol/L 23-31 AGAP (test code = 6470110176) 9 2-16 BUN (test code = 6312703798) 6 mg/dL 7-23 L GLUCOSE (test code = 6130036043) 122 mg/dL 70-110 H CREATININE (test code = 2160-0) 0.61 mg/dL 0.50-1.04 TOTAL BILI (test code = 9681609207) 0.6 mg/dL 0.1-1.1 CALCIUM (test code = 4224692468) 9.0 mg/dL 8.6-10.6 T PROTEIN (test code = 6764303728) 8.1 g/dL 6.3-8.2 ALBUMIN (test code = 4528566520) 4.4 g/dL 3.5-5.0 ALK PHOS (test code = 1367290662) 85 U/L 34-122 ALTv (test code = 1742-6) 20 U/L 5-35 AST(SGOT) (test code = 2220259897) 19 U/L 13-40 eGFR (test code = 83573-6) 125.8 mL/min/1.73m2 CKD-EPI eGFR (2020). Assuming creatinine has been stable day-to-day for at least three months, the eGFR indicates Category G1 (>= 90 mL/min/1.73 m2) Lab Interpretation (test code = 50309-1) Abnormal [facility] McKinneyLipase, [id number] 11:58:19* Test Item Value Reference Range Interpretation Comme nts LIPASE (test code = 5344831489) 40 U/L 0-220 Lab Interpretation (test cod e = 51790-1) Normal [facility]neyCBC with [id number] 11:41:57* Test Item Value Reference Range Interpretation [...] 32.8 g/dL 31.6-35.1 RDW-SD (test code = 60556-0) 51.3 fL 39.0-49.9 H RDW-CV (test code = 788-0) 13.7 % 12.0-15.5 PLT (test code = 777-3) 349 166-358 MPV (test code = 44855-1) 9.3 fL 9.5-12.9 L NRBC/100 WBC (test code = 7665200724) 0.0 0.0-10.0 NRBC x10^3 (test code = 1663794563) See_Comment [Automated messa ge] The system which generated this result transmitted reference range: 10*3/?L. The reference range was not used to interpret this result as normal/abnormal. GRAN MAT (NEUT) % (test code = 770-8) 73.3 % IMM GRAN % (test code = 1162455534) 0.40 % LYMPH % (test code = 736-9) 19.0 % MONO % (test code = 5905-5) 4.8 % EOS % (test code = 713-8) 2.0 % BASO % (test code = 706-2) 0.5 % GRAN MAT x10^3(ANC) (test code = 5278910135) 7.18 10*3/uL 1.88-7.09 H IMM GRAN x10^3 (test code = 1784956297) 0.04 10*3/uL 0.00-0.06 LYMPH x10^3 (test code = 731-0) 1.86 10*3/uL 1.32-3.29 MONO x10^3 (test code = 742-7) 0.47 10*3/uL 0.33-0.92 EOS x10^3 (test code = 711-2) 0.20 10*3/uL 0.03-0.39 BASO x10^3 (test code = 704-7) 0.05 10*3/uL 0.01-0.07 Lab Interpretation (test code = 90185-6) Abnormal [facility]neyCOMP. METABOLIC PANEL (25419)2023-11-08 17:45:25* Test Item Value Reference Range Interpretation Comme nts NA (test code = 0442718873) 136 mmol/L 135-145 K (test code = 7951637806) 3.1 mmol/L 3.5-5.0 L CL (test code = 8850051252) 105 mmol/L 98-108 CO2 TOTAL (test code = 4006663497) 21 mmol/L 23-31 L AGAP (test code = 8736009974) 10 2-16 BUN (test code = 4583525287) 12 mg/dL 7-23 GLUCOSE (test code = 4949164131) 92 mg/dL 70-110 CREATININE (test code = 2160-0) 0.57 mg/dL 0.50-1.04 TOTAL BILI (test code = 7293886182) 0.6 mg/dL 0.1-1.1 CALCIUM (test code = 2684555614) 9.0 mg/dL 8.6-10.6 T PROTEIN (test code = 9824514211) 8.0 g/dL 6.3-8.2 ALBUMIN (test code = 1403495445) 4.3 g/dL 3.5-5.0 ALK PHOS (test code = 9007158320) 81 U/L 34-122 ALTv (test code = 1742-6) 17 U/L 5-35 AST(SGOT) (test code = 5391820434) 45 U/L 13-40 H eGFR (test code = 74284-6) 127.9 mL/min/1.73m2 CKD-EPI eGFR (2020). Assuming creatinine has been stable day-to-day for at least three months, the eGFR indicates Category G1 (>= 90 mL/min/1.73 m2) Lab Interpretation (test code = 94852-7) Abnormal [facility] McKinneyLIPASE2024-09-19 16:30:35* Test Item Value Reference Range Interpretation Comme nts LIPASE (test code = 0437700031) 53 U/L 0-220 Lab Interpretation (test cod e = 05094-2) Normal [facility] McKinneyCB WITH [id number] 16:15:57* Test Item Value Reference Range Interpretation [...] 33.1 g/dL 31.6-35.1 RDW-SD (test code = 51689-3) 50.1 fL 39.0-49.9 H RDW-CV (test code = 788-0) 13.8 % 12.0-15.5 PLT (test code = 777-3) 471 166-358 H MPV (test code = 14566-9) 9.2 fL 9.5-12.9 L NRBC/100 WBC (test code = 6619803302) 0.0 0.0-10.0 NRBC x10^3 (test code = 2293047028) See_Comment [Automated messa ge] The system which generated this result transmitted reference range: 10*3/?L. The reference range was not used to interpret this result as normal/abnormal. GRAN MAT (NEUT) % (test code = 770-8) 77.8 % IMM GRAN % (test code = 3535430689) 0.30 % LYMPH % (test code = 736-9) 16.7 % MONO % (test code = 5905-5) 4.7 % EOS % (test code = 713-8) 0.2 % BASO % (test code = 706-2) 0.3 % GRAN MAT x10^3(ANC) (test code = 3263812831) 9.31 10*3/uL 1.88-7.09 H IMM GRAN x10^3 (test code = 0757558924) 0.04 10*3/uL 0.00-0.06 LYMPH x10^3 (test code = 731-0) 1.99 10*3/uL 1.32-3.29 MONO x10^3 (test code = 742-7) 0.56 10*3/uL 0.33-0.92 EOS x10^3 (test code = 711-2) 0.03-0.39 L BASO x10^3 (test code = 704-7) 0.03 10*3/uL 0.01-0.07 Lab Interpretation (test code = 07896-6) Abnormal [facility] [id number] 16:01:00* Test Item Value Reference Range Interpretation Comme nts POCT PREG (test code = 1605) Negative On board controls acceptable with C Line (test code = 3574) Yes POCT PREG LOT # (test code = 3575) [id number] POCT PREG TEST DATE ( test code = 357) 11-28-24 Lab Interpretation (test cod e = 31198-6) Normal [facility] [id number] 16:30:00* Test Item Value Reference Range Interpretation Comme nts POCT PREG (test code = 1605) Negative On board controls acceptable with C Line (test code = 3574) Yes POCT PREG LOT # (test code = 3575) [id number] POCT PREG TEST DATE ( test code = 3576) 03/28/2024 Lab Interpretation (test cod e = 25721-5) Normal [facility]neyPOCT [id number] 20:18:00* Test Item Value Reference Range Interpretation Comme nts POCT PREG (test code = 1605) Negative On board controls acceptable with C Line (test code = 3574) Yes POCT PREG LOT # (test code = 3575) POCT PREG TEST DATE ( test code = 3576) [facility]neyPOCT [id number] 20:18:00* Test Item Value Reference Range Interpretation Comme nts POCT PREG (test code = 1605) Negative On board controls acceptable with C Line (test code = 3574) Yes POCT PREG LOT # (test code = 3575) POCT PREG TEST DATE ( test code = 3576) [facility] OR [place] ONLY - [id number] 04:42:10* Test Item Value Reference Range Interpretation Comme nts RPR (Qualitative) (test code = 46497-4) Nonreactive Nonreactive Lab Interpretation (test cod e = 29985-7) Normal [facility] McKinneyHepatitis B Surface [id number] 17:49:35 * Test Item Value Reference Range Interpretation Comme nts HBsAg Semi-Quantitative (mesha t code = 5195-3) Negative Negative [facility] McKinneyHIV 1/2 AG-AB WITH [id number] 12:19:16* Test Item Value Reference Range Interpretation Comme nts HIV Semi-quantitative (test code = 67976-8) Negative Negative RUMA (test code = RUMA) Non-reactive for HIV-1 antigen and HIV-1/HIV-2 antibodies. ?No laboratory evidence of HIV infection. ?Repeat in 2-4 weeks if acute HIV infection is suspected. [facility] McKinneyCOM. METABOLIC PANEL (67641)2021-11-26 11:29:08* Test Item Value Reference Range Interpretation Comme nts NA (test code = 3797442542) 137 mmol/L 135-145 K (test code = 4588168292) 3.6 mmol/L 3.5-5 CL (test code = 6614890053) 105 mmol/L 98-108 CO2 TOTAL (test code = 5835041768) 21 mmol/L 23-31 L AGAP (test code = 4389040593) 2-16 BUN (test code = 4954980264) 4 mg/dL 7-23 L GLUCOSE (test code = 1658358494) 93 mg/dL 70-110 CREATININE (test code = 9814526732) 0.49 mg/dL 0.5-1.04 L TOTAL BILI (test code = 7479660405) 0.2 mg/dL 0.1-1.1 CALCIUM (test code = 3459370176) 9.0 mg/dL 8.6-10.6 T PROTEIN (test code = 5177108667) 6.9 g/dL 6.3-8.2 ALBUMIN (test code = 2462450753) 3.7 g/dL 3.5-5 ALK PHOS (test code = 3771270379) 169 U/L 34-122 H ALTv (test code = 1742-6) 15 U/L 5-35 AST(SGOT) (test code = 6327036686) 23 U/L 13-40 eGFR (test code = 8821083419) mL/min/1.73m2 RUMA (test code = RUMA) Association [...] imaging tests). Lab Interpretation (test code = 38788-0) Abnormal [facility] McKinneyURIC [id number] 11:28:48* Test Item Value Reference Range Interpretation Comme nts URIC ACID (test code = 2536113532) 3.4 mg/dL 2.9-6 Lab Interpretation (test cod e = 62624-0) Normal [facility] McKinneyLACTATE [id number] 11:24:10* Test Item Value Reference Range Interpretation Comme nts LDH (test code = 8527728843) 216 U/L 120-246 Lab Interpretation (test cod e = 99773-3) Normal [facility] McKinneyType and Screen - ONCE [id number] 10:30:18 * Test Item Value Reference Range Interpretation Comme [facility] ABO & RH (test code = 20) O Positive Performed at [facility] Laboratory [facility] Blood [address] [place] [address] Free: [phone] No. [id number] IAT (test code = 1185) Negative Performed at [facility] Laboratory [facility] Blood [address] Free: [phone] No. [id number] [facility] McKinneyCBC with [id number] 09:46:38* Test Item Value Reference Range Interpretation [...] 34.9 g/dL 31.6-35.1 RDW-SD (test code = 24985-6) 40.9 fL 39-49.9 RDW-CV (test code = 788-0) 12.2 % 12-15.5 PLT (test code = 777-3) See_Comment [Automated Next [employer]a ge] The system which generated this result transmitted reference range: 166 - 358 10*3/?L. The reference range was not used to interpret this result as normal/abnormal. MPV (test code = 35398-8) 9.9 fL 9.5-12.9 NRBC/100 WBC (test code = 8935498257) See_Comment [Automated [employer] ssage] The system which generated this result transmitted reference range: 0.0 - 10.0 /100 WBCs. The reference range was not used to interpret this result as normal/abnormal. NRBC x10^3 (test code = 0832466670) See_Comment [Automated [employer]a ge] The system which generated this result transmitted reference range: 10*3/?L. The reference range was not used to interpret this result as normal/abnormal. GRAN MAT (NEUT) % (test code = 770-8) 70.4 % IMM GRAN % (test code = 5863784289) 0.70 % LYMPH % (test code = 736-9) 20.1 % MONO % (test code = 5905-5) 6.0 % EOS % (test code = 713-8) 2.5 % BASO % (test code = 706-2) 0.3 % GRAN MAT x10^3(ANC) (test code = 1174735068) 8.92 10*3/uL 1.88-7.09 H IMM GRAN x10^3 (test code = 8631645210) 0.09 10*3/uL 0-0.06 H LYMPH x10^3 (test code = 731-0) 2.55 10*3/uL 1.32-3.29 MONO x10^3 (test code = 742-7) 0.76 10*3/uL 0.33-0.92 EOS x10^3 (test code = 711-2) 0.32 10*3/uL 0.03-0.39 BASO x10^3 (test code = 704-7) 0.04 10*3/uL 0.01-0.07 Lab Interpretation (test code = 67386-6) Abnormal [facility] URINALYSIS W SPECIFIC [id number] 14:56:00* Test Item Value Reference Range Interpretation [...] POCT U APPEAR (test code = 3267) [facility] URINALYSIS W SPECIFIC [id number] 14:56:00* Test Item Value Reference Range Interpretation Comme nts POCT U SP GRAV (test code = 3255) * 1.005-1.025 POCT PH U (test code = 3254) * 5-8 POCT U LEUK EST (test code = 3263) * Negative - Negative POCT U NIT (test code = 3262) * Negative - Negati ve POCT U PROT (test code = 3259) 1+ Negative - Negat detsini POCT U GLU (test code = 3256) [...] POCT U APPEAR (test code = 3267) [facility] URINALYSIS W SPECIFIC [id number] 14:58:00* Test Item Value Reference Range Interpretation [...] POCT U APPEAR (test code = 3267) [facility] URINALYSIS W SPECIFIC [id number] 14:58:00* Test Item Value Reference Range Interpretation [...] POCT U APPEAR (test code = 3267) [facility] URINALYSIS W SPECIFIC [id number] 14:58:00* Test Item Value Reference Range Interpretation [...] POCT U APPEAR (test code = 3267) [facility] URINALYSIS W SPECIFIC [id number] 14:58:00* Test Item Value Reference Range Interpretation [...] POCT U APPEAR (test code = 3267) [facility] URINALYSIS W SPECIFIC [id number] 14:58:00* Test Item Value Reference Range Interpretation [...] POCT U APPEAR (test code = 3267) [facility]neyPOV[facility] URINALYSIS W SPECIFIC [id number] 18:21:00* Test Item Value Reference Range Interpretation [...] POCT U APPEAR (test code = 3267) [facility] Notes Date/Time Note Provider Source 2023-12-25 13:55:45 Images from the original note were not included. Requested Renewals phentermine 37.5 mg tablet Sig: Take 1 tablet by mouth daily with breakfast. Disp: 30 tablet Refills: 0 Start: 12/25/2023 Class: eRX PDMP Needs Review Non-formulary For: Class 3 severe obesity due to excess calories with serious comorbidity and body mass index (BMI) of 50.0 to 59.9 in adult Last ordered: 1 month ago (11/19/2023) by Jess Munson MD Off-Protocol Pgbtav1412/25/2023 01:50 PM Protocol Details Medication not assigned to a protocol, forward to provider. Valid encounter within last 12 months zolpidem 5 mg tablet Sig: Take 1 tablet by mouth at bedtime as needed for Insomnia. Disp: 30 tablet Refills: 0 Start: 12/25/2023 Class: eRX PDMP Needs Review For: Primary insomnia Last ordered: 1 month ago (11/19/2023) by Jess Munson MD Provider Review Required Ydwqfj1412/25/2023 01:50 PM Protocol Details This refill cannot be delegated Valid encounter within last 12 months To be filled at: [facility] [address] [place] [address] 11-19-2023 [facility] 02-27-2024 OELECTRIC PRODUCTION MANAGER Sabi Corrales MA [facility] 2023-12-25 10:29:31 Please review patients request for ondansetron 4 mg dissolvable tablet instead of the prescribed ondansetron 4 mg tablet. Please advise, thank you. OELECTRIC PRODUCTION MANAGER Zuleima Duarte LVN [facility] 2023-12-18 11:14:17 Noted Abbey Goel MA 12/18/2023 11:14 AM Abbey Goel MA [facility] 2023-12-18 09:36:32 Pt opted for appt today Anaya Andrews [facility] 2023-12-18 09:30:12 Lanre Bales is a 28 year old female Calling in wanting to know if PCP can prescribe proMETHazine 25 mg tablet If not pt would like to be advised on what to do to manage symptoms before her endoscopy Please advise [facility] 2023-12-18 09:17:17 Pt is returning clinic call. Karina Mcclain [facility] 2023-12-17 10:33:58 Routing to provider for review as office has not sent in Rx before. Recent Visits Date Type Provider Dept 11/19/23 Office Visit Jess Munson MD [facility] 08/06/23 Office Visit Jess Munson MD [facility] 01/24/23 Office Visit Jess Munson MD [facility] 12/25/22 Office Visit Jess Munson MD [facility] Showing recent visits within past 540 days with a meds authorizing provider and meeting all other requirements Future Appointments Date Type Provider Dept 02/27/24 Appointment Jess Munson MD [facility] Showing future appointments within next 150 days with a meds authorizing provider and meeting all other requirements Tiff Thomason RN [facility] 2023-12-17 10:29:18 Pt states she is having a gastritis flare as of last night. Pt said she has vomited a few times. She would like a prescription sent in for nausea. She said she does not want to go to the ER because she has her son. Please Advise. [facility] [address] [place] [id number] Alberta Ashraf [facility] 2023-12-11 14:03:58 Patient returned my call. Patient contacted for pre op phone call. Patient given procedural prep instructions (EGD)NPO status/timing for procedure, medication instructions : instructed to take last dose of phentermine om 12/16/23. Patient stated she is about to start taking ozempic. Instructed her that she can not take any after 12/16/23. Denies anticoagulant therapy, diuretics, or any other diabetic, or weight loss medications. Patient verbalized understanding of instructions. Discussed with patient they will need a responsible adult, 18 years old or older, to provide transportation on the day of procedure. Patient also informed that they will be contacted the day before their procedure with arrival time. Pre op call complete. Jill Brown RN [facility] 2023-12-11 10:09:05 Left a message to remind patient that they have to have someone over the age of [address] home from the procedure (EGD), nothing to eat after midnight the night before procedure, clear liquids up until 2 hours prior to your arrival time on the day of procedure, leave all valuables at home, and they will receive a call from scheduling the day before the procedure with arrival time. Instructed to take last dose of phentermine on 12/24/23. Request a call back if taking any blood thinners, diuretics, diabetic or any other weight loss medications. Prep and medication instructions sent via [employer] & email: [email or web address] [facility] 2023-12-07 09:25:56 Images from the original note were not included. Requested Renewals Name from pharmacy: TRAZODONE 100 MG TABLET Will file in chart as: TRAZODONE 100 mg tablet Sig: TAKE 1 TABLET BY MOUTH EVERYDAY AT BEDTIME Disp: 90 tablet Refills: 0 (Pharmacy requested: Not specified) Start: 12/07/2023 Class: eRX For: Primary insomnia Last ordered: 4 months ago (07/25/2023) by Konrad Ordoñez NP Last refill: 09/05/2023 Rx #: [id number] Psychiatry: Antidepressants Ulvdbx6812/07/2023 12:36 AM Protocol Details Manual Review: Verify no changes in dose in the last 3 months Valid encounter within last 12 months To be filled at: [facility]/pharmacy #[id number] - [address] [facility] 11-19-2023 NOV 02-27-2024 Sabi Corrales MA [facility] 2023-11-19 10:30:00 Breath test [facility] 2023-11-19 10:30:00 Addended by: AYESHA LIANG on: 11/19/2023 02:54 PM Modules accepted: Orders Ayesha Liang [facility] [facility] 2023-11-19 08:13:22 Pt has scheduled appointment for 11/18. Rossana Malik [facility] 2023-11-18 18:46:30 1. Primary insomnia Update patient [...] with no significant benefit, will also discontinue. [facility] 2023-11-18 13:08:04 Patient given printed and verbal [...] with steady gait, in no apparent distress. T Tosha Duval RN [facility] 2023-11-18 07:19:14 [facility] ED Transfer of Care Note. [...] 1049) Results: Labs Reviewed COMP. METABOLIC PANEL (65440) - Abnormal; Notable for the following components: [...] to have appropriate medical decision making capability. WHIP OPERATOR clinic referral placed. Disposition: Discharged Home Social Determinants of Health: None ED Disposition ED Disposition Disch - Home Condition Stable [facility] 07:14:03 Patient report given to Crispin [facility]AN [facility] 2023-11-18 05:26:10 Pt presents to ED with c/o vomiting 2 days. Pt states she also has pain in the top of her stomach. Pt rates pain 9/10 in abdomen No meds BRANCH DIRECTOR LMP: couple weeks ago. Lisha Spear RN [facility] - Health 2023-11-18 05:21:00 [facility] Emergency Department Note Patient Name: Lanre Bales Date of : 1995 28 year old female Treatment Room: DC5/DC5 Primary Care Physician: Jess Munson Patient Escorted by: Family [5] Mode of Arrival: Personal means [1] EMS Treatment Prior to ED Arrival: BRANCH DIRECTOR treatment: None Travel and Exposure Screening: [...] History provided by: Significant other and patient cosmetic sales assistant used: No Abdominal Pain Pain location: Epigastric [...] ?C (98.1 ?F) Temp src -- SpO2 09/29/24 0528 99 % Measured on 11/18/23 0528 Room air Physical Exam Vitals and nursing [...] Lab Results: Lab Results COMP. METABOLIC PANEL (66644) - Abnormal Result Value Ref Range NA [...] Eval: ED Events Date/Time Event User Comments 11/18/23557 Medical Screening Begins CARO BAUER MD -- 11/18/23557 First Provider Evaluation CARO BAUER MD -- [...] Electronically signed by: Caro Bauer MD 11/18/23 0737 [facility] 2023-11-16 14:03:54 Images from the original note were not included. Requested Renewals zolpidem 5 mg tablet Sig: Take 1 tablet by mouth at bedtime as needed for Insomnia. Disp: 30 tablet Refills: 0 Start: 11/16/2023 Class: eRX For: Primary insomnia Last ordered: 4 weeks ago (10/19/2023) by Jess Munson MD Provider Review Required Oiquja3211/16/2023 01:53 PM Protocol Details This refill cannot be delegated Valid encounter within last 12 months To be filled at: [facility]/pharmacy #[id number] - [place], [place] - [address] [place] [address] AT [facility] 08-06-2023 NOV N/A Sabi Corrales MA [facility] 2023-11-16 14:03:07 Images from the original note [...] ago (10/16/2023) by Jess Munson MD Off-Protocol Oqllzq6811/16/2023 01:48 PM Protocol Details Medication not assigned to a protocol, forward to provider. Valid encounter within last 12 months To be filled at: [facility] [address] [place] [address] 08-06-2023 NOV N/A Sabi Corrales MA [facility] 2023-11-16 13:49:19 Patient requesting a refill of:zolpidem Medication: zolpidem Dose: 5 mg Route: refill Quantity: 30 Pharmacy: [facility] [address] [place] [id number] Last appt.: 08/05 Next appt.: na Would like to speak with clinic about getting this done today [facility] 2023-11-16 13:46:24 Lanre Bales is a 28 year old female is calling to get an update on refill request. Pt wants this sent today T Petty Valdivia [facility] 2023-11-15 11:34:30 [...] ago (10/16/2023) by Jess Munson MD Off-Protocol Pafmuj8211/15/2023 11:02 AM Protocol Details Medication not assigned to a protocol, forward to provider. Valid encounter within last 12 months To be filled at: [facility] - [place], [place] - [address] Last Refilled: 10/16/23 Recent Visits Date Type Provider Dept 08/06/23 Office Visit Jess Munson MD [facility] 01/24/23 Office Visit Jess Munson MD [facility] 12/25/22 Office Visit Jess Munson MD [facility] Showing recent visits within past 540 days with a meds authorizing provider and meeting all other requirements Future Appointments No visits were found meeting these conditions. Showing future appointments within next 150 days with a meds authorizing provider and meeting all other requirements Dhara Corral MA [facility] 2023-11-08 15:30:00 DC instructions and prescription for Zofran ODT reviewed with patient. She will fill prescription and take as directed. She will follow up with her PCP in 3-5 days as instructed. She will return to the ED if her symptoms persist or worsen. She was Dc'd ambulatory-alert and in no distress T [facility] 2023-11-08 13:02:16 Report received and care assumed. T [facility] 2023-11-08 12:50:54 Nurse Report Report given to COLE Miranda. Chief complaint, assessment findings, infusion verify and orders reviewed. Plan of care discussed with both nurses. Judy Marroquin RN Judy Marroquin RN [facility] 2023-11-08 10:15:50 Vomiting x3 days. Lucille Lester RN [facility] 2023-10-18 13:34:30 Images from the original note were not included. Notes: Patient requesting refill, please review. Abbey Goel MA 10/18/2023 1:35 PM Last Refilled: 09/13/23 Recent Visits Date Type Provider Dept 08/06/23 Office Visit Jess Munson MD [facility] 01/24/23 Office Visit Jess Munson MD [facility] 12/25/22 Office Visit Jess Munson MD [facility] Showing recent visits within past [...] by Jess Munson MD Provider Review Required Qogaei4010/18/2023 12:27 PM Protocol Details This refill cannot be delegated Valid encounter within last 12 months To be filled at: [facility] [address] [place] [address] Abbey Goel MA [facility] 2023-10-18 12:25:18 Lanre Bales is a 28 year old female and pt is calling back to check on her refill request. Would like to know when it will be refilled please advise. zolpidem 5 mg tablet [facility] [address] [place] [id number] [facility] 2023-10-16 13:12:14 Images from the original note were not included. Requested Renewals zolpidem 5 mg tablet Sig: Take 1 tablet by mouth at bedtime as needed for Insomnia. Disp: 30 tablet Refills: 0 Start: 10/16/2023 Class: eRX For: Primary insomnia Last ordered: 1 month ago (09/13/2023) by Jess Munson MD Provider Review Required Kwfbgt6610/16/2023 12:10 PM Protocol Details This refill cannot be delegated Valid encounter within last 12 months To be filled at: [facility] [address] [place] [address] 08-06-2023 NOV N/A Sabi Corrales MA [facility] 2023-10-15 13:12:38 Images from the original note [...] ago (09/13/2023) by Jess Munson MD Off-Protocol Tvqrut0810/15/2023 01:05 PM Protocol Details Medication not assigned [...] ago (10/03/2023) by Jess Munson MD Off-Protocol Nyuach0610/15/2023 01:05 PM Protocol Details Medication not assigned to a protocol, forward to provider. Valid encounter within last 12 months To be filled at: [facility] [address] [place] [address] - [address] 08-06-2023 NOV N/A Sabi Corrales MA [facility] 2023-10-02 08:26:45 Images from the original note were not included. Last OV:01/24/23 with Jess Munson MD Last Refill:12/26/22 prescribed by Jess Munson MD Last Labs Pertaining to Med:08/06/2023 Future Appt: Future Appointments Provider Department Dept Phone 2023 9:40 AM Jess Munson MD [facility] [phone] Requested Renewals ergocalciferol, vitamin d2, (VITAMIN D2) 1,250 mcg (50,000 unit) capsule Sig: Take 1 capsule by mouth weekly. Disp: 12 capsule Refills: 0 Start: 10/01/2023 Class: eRX For: Vitamin D deficiency Last ordered: 9 months ago (12/26/2022) by Jess Munson MD Off-Protocol Yhkfip4710/01/2023 08:53 PM Protocol Details Medication not assigned to a protocol, forward to provider. Valid encounter within last 12 months To be filled at: [facility]/pharmacy #[id number] [place], [place] - [address] [place] [address] Abbey Goel MA [facility] 2023-09-13 08:20:32 Images from the original note [...] ago (08/06/2023) by Jess Munson MD Off-Protocol Epsnju7509/12/2023 06:49 PM Protocol Details Medication not assigned to a protocol, forward to provider. Valid encounter within last 12 months zolpidem 5 mg tablet Sig: Take 1 tablet by mouth at bedtime as needed for Insomnia. Disp: 30 tablet Refills: 0 Start: 09/12/2023 Class: eRX For: Primary insomnia Last ordered: 1 month ago (08/06/2023) by Jess Munson MD Provider Review Required Vcefec6509/12/2023 06:49 PM Protocol Details This refill cannot be delegated Valid encounter within last 12 months To be filled at: [address] 08-06-2023 NOV N/A Sabi Corrales MA [facility] 2023-08-06 14:30:00 Images from the original note were not included. Venipuncture collection performed by clean technique on the right anticubitus. Total of 1 attempts were made. Slight pressure and a bandage/dressing were applied to the site(s). The patient experienced no complications. The following specimens were processed according to instructions and sent to [facility] laboratories per lab order on 08/06/2023 : LT BLUE SST 2 RED LAV 2 PPT DK GREEN (LiHep) 1 DK GREEN (SodH) HART DK BLUE (K2) 1 DK BLUE (S) ACD Blood Culture NIPT/NTD [facility] 2023-08-01 12:29:00 Attempted to reach patient to schedule with TEST CONSULTANT Piper lvm. Elin Trivedi [facility] 2023-07-31 18:24:47 You can schedule an appointment with me in person and we can review other options. Dr. Dias is out of office till next week. [facility] 2023-07-31 16:57:43 Images from the original note [...] lifestyle changes to get best results Off-Protocol Gmqalp5707/31/2023 02:47 PM Protocol Details Medication not assigned to a protocol, forward to provider. Valid encounter within last 12 months To be filled at: [facility] [address] [place] [address] Last Refilled: 05/29/2023 Recent Visits Date Type Provider Dept 01/24/23 Office Visit Jess Munson MD [facility] 12/25/22 Office Visit Jess Munson MD [facility] Showing recent visits within past 540 days with a meds authorizing provider and meeting all other requirements Future Appointments Date Type Provider Dept 08/13/23 Appointment Jess Munson MD [facility] Showing future appointments within next 150 days with a meds authorizing provider and meeting all other requirements Dhara Corral MA [facility] 2023-07-25 08:53:56 Images from the original note were not included. Requested Renewals traZODone 100 mg tablet Sig: Take 1 tablet by mouth at bedtime. Disp: 90 tablet Refills: 0 Start: 07/25/2023 Class: eRX Non-formulary For: Primary insomnia Last ordered: 3 months ago (04/23/2023) by Jess Munson MD Psychiatry: Antidepressants Moloig3007/25/2023 08:38 AM Protocol Details Manual Review: Verify no changes in dose in the last 3 months Valid encounter within last 12 months To be filled at: [facility]/pharmacy #[id number] [facility] [address] 01-24-2023 NOV N/A Sabi Corrales MA [facility] 2023-07-25 08:38:07 Images from the original note were not included. [facility] 2023-06-21 12:29:19 Patient dc home. Follow up with pcp. Verbalized understanding. ÍGUEZT Prosper Segovia RN [facility] 2023-06-21 11:23:37 Pt arrived via private car with c/o dysuria x3 days ÍGUEZT Kelly Rolon RN [facility] 2023-06-21 11:14:00 [facility] Emergency Department Note Patient Name: [...] signed by: Bonita Trivedi DO 06/21/23 1216 [facility] 2023-06-12 14:39:19 Call placed to pt to discuss Travarkt message. Tiff Thomason RN [facility] 2023-05-29 14:42:38 Images from the original note [...] ago (04/12/2023) by Jess Munson MD Off-Protocol Tntxmu1805/29/2023 02:20 PM Protocol Details Medication not assigned to a protocol, forward to provider. Valid encounter within last 12 months To be filled at: [facility] [address] [place] [address] Last Refilled: 04/12/23 Recent Visits Date Type Provider Dept 01/24/23 Office Visit Jess Munson MD [facility] 12/25/22 Office Visit Jess Munson MD [facility] Showing recent visits within past 540 days with a meds authorizing provider and meeting all other requirements Future Appointments Date Type Provider Dept 06/06/23 Appointment Jess Munson MD [facility] Showing future appointments within next 150 days with a meds authorizing provider and meeting all other requirements Dhara Corral MA [facility] 2023-04-23 10:14:44 Images from the original note were not included. Routed to provider for review. Unable to refill per ambulatory refill guidelines. Notes: traZODone 100 mg tablet Sig: Take 1 tablet by mouth at bedtime. Disp: 90 tablet Refills: 0 Start: 04/23/2023 Class: eRX Non-formulary For: Primary insomnia Last ordered: 2 months ago (01/24/2023) by Jess Munson MD Psychiatry: Antidepressants Zafwke7004/23/2023 09:19 AM Protocol Details Manual Review: Verify no changes in dose in the last 3 months Valid encounter within last 12 months To be filled at: [facility]/pharmacy #[id number] - [place] - [address] [place] [address] Last Refilled: 01/24/2023 Recent Visits Date Type Provider Dept 01/24/23 Office Visit Jess Munson MD [facility] 12/25/22 Office Visit Jess Munson MD [facility] Showing recent visits within past 540 days with a meds authorizing provider and meeting all other requirements Future Appointments Date Type Provider Dept 04/25/23 Appointment Jess Munson MD [facility] Showing future appointments within next 150 days with a meds authorizing provider and meeting all other requirements 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 OELECTRIC PRODUCTION MANAGER Melissa Jimenez RN [facility] 2023-04-11 15:07:24 Images from the original note [...] ago (03/02/2023) by Jess Munson MD Off-Protocol Ldkarq9104/11/2023 02:55 PM Protocol Details Medication not assigned to a protocol, forward to provider. Valid encounter within last 12 months To be filled at: [facility] - [place], [place] - [address] [place] [address]-06-2023 NOV 04-25-2023 OELECTRIC PRODUCTION MANAGER Sabi Corrales MA [facility] 2023-04-02 12:51:41 Images from the original note were not included. Last OV: 01/24/2023 with Jess Munson Last Refill: 02/20/2023 prescribed by Jess Munson Last Labs Pertaining to Med: N/A Future Appt: Future Appointments Provider Department Dept Phone 04/25/2023 3:00 PM Jess Munson MD [facility] [place] [phone] Routed to provider for review. Unable to refill per ambulatory refill guidelines. zolpidem 5 mg tablet Sig: Take 1 tablet by mouth at bedtime as needed for Insomnia. Disp: 30 tablet Refills: 0 Start: 04/01/2023 Class: eRX For: Primary insomnia Last ordered: 1 month ago (02/20/2023) by Jess Munson MD Provider Review Required Wratkl1004/01/2023 01:01 PM Protocol Details This refill cannot be delegated Valid encounter within last 12 months OELECTRIC PRODUCTION MANAGER Melissa Jimenez RN [facility] 2023-03-02 13:44:04 Images from the original note [...] ago (01/26/2023) by Jess Munson MD Off-Protocol Likyzk2903/02/2023 01:27 PM Protocol Details Medication not assigned to a protocol, forward to provider. Valid encounter within last 12 months To be filled at: [facility] [address] [place] [address] - [address] [place] [address] 01-24-2023 NOV 04-25-2023 OELECTRIC PRODUCTION MANAGER Sabi Corrales MA [facility] 2023-02-19 20:36:52 Images from the original note were not included. Last OV: 01/24/2023 with Jess Munson Last Refill: 01/16/2023 prescribed by Jess Munson Last Labs Pertaining to Med: N/A Future Appt: Future Appointments Provider Department Dept Phone 04/25/2023 3:00 PM Jess Munson MD [facility] [place] [phone] Routed to provider for review. Unable to refill per ambulatory refill guidelines. zolpidem 5 mg tablet Sig: Take 1 tablet by mouth at bedtime as needed for Insomnia. Disp: 30 tablet Refills: 0 Start: 02/19/2023 Class: eRX For: Primary insomnia Last ordered: 1 month ago (01/16/2023) by Jess Munson MD Provider Review Required Vglpod9802/19/2023 03:32 PM Protocol Details This refill cannot be delegated Valid encounter within last 12 months E Jimenez RN [facility]
[2024-01-01] MEDS ORDERED: FAMOTIDINE 20 MG/2 ML VIAL IV ONE (01:01)
[2024-01-01] MEDS ORDERED: MORPHINE 4 MG/ML SYR ONE (01:01)
[2024-01-01] MEDS ORDERED: ONDANSETRON 4 MG/2 ML VIAL ONE (01:01)
[2024-01-01] MEDS ORDERED: NA CHLORIDE 0.9% 1,000 ML ONE (01:01)
[2024-01-01 01:23] LABS: Absolute Eosinophils 0.1 K/uL (0-0.5); Absolute Lymphocytes (CBC) 1.9 K/uL (0.7-4.9); Absolute Monocytes 0.5 K/uL (0.1-1.3); Absolute Neutrophil 9.5 K/uL (1.8-8.0); Basophils % 0.3 % (0-1.3); Eosinophils % 0.6 % (0-4.4); Hematocrit 42.4 % (36.0-45.0); Hemoglobin 14.1 g/dL (12.0-15.0); Lymphocytes % 15.4 % (15.3-44.8); MCH 33.7 pg (27.0-35.0); MCHC 33.3 g/dL (32.0-36.0); MCV 101.3 fL (80-100); MPV 7.6 fL (7.6-11.3); Monocytes % 4.4 % (3.3-12.3); Neutrophils % 79.3 % (41.7-73.7); Platelets 401 thou/uL (152-406); RBC Red Blood Cell Count 4.18 M/uL (3.86-4.86); Red Cell Distribution Width 15.2 % (12.1-15.2)
[2024-01-01 01:32] LABS: Albumin 3.7 g/dL (3.4-5.0); Albumin/Globulin Ratio 0.8 (1.1-1.8); Anion Gap 9.1 mEq/L (5.0-15.0); Bilirubin Total 0.5 mg/dL (0.2-1.0); Globulin 4.4 g/dL (2.3-3.5); Potassium 3.1 mEq/L (3.5-5.1); Protein, Total 8.1 g/dL (6.4-8.2)
[2024-01-01] MEDS ORDERED: PROMETHAZINE INJ 25 MG/ML AMP ONE (02:25)
[2024-01-01 04:09] LABS: Urine Bacteria <20 /HPF (<20); Urine Bilirubin NEGATIVE (Negative); Urine Blood Trace (Negative); Urine Clarity Clear (Clear); Urine Color Light-Yellow (Yellow); Urine Culture Reflex Order NOT NEEDED; Urine Glucose NEGATIVE (Negative); Urine Ketones TRACE (Negative); Urine Microscopic Reflex YN ORDER UMIC; Urine Mucus Slight /HPF (None Seen); Urine Nitrite NEGATIVE (Negative); Urine Protein TRACE (Negative); Urine RBC <5 /HPF (None Seen); Urine Urobilinogen Normal (Normal); Urine WBC <5 /HPF (<5); Urine pH 7.5 (5.0-7.0)
[2024-01-01 04:12] LABS: Specific Gravity > 1.030 (1.005-1.030)
--- NOTE | 2024-01-01 04:17 | ER ---
Nurse's Notes [facility] Name: Robin Bernard Age: 28 yrs Sex: Female : 1995 Arrival Date: 12/31/2023 Time: 23:05 Bed 7 Private MD: Diagnosis: Nausea with vomiting, unspecified Presentation: 12/30 23:51 Chief complaint: Patient states: vomiting for 2 days, no other symptoms. Coronavirus vc1 screen: Client denies travel out of the [place] in the last 14 days. vomiting. Client presents with at least one sign or symptom that may indicate coronavirus-19. Ebola Screen: Patient negative for fever greater than or equal to 101.5 degrees Fahrenheit, and additional compatible Ebola Virus Disease symptoms Patient denies exposure to infectious person. Patient denies travel to an Ebola-affected area in the 21 days before illness onset. No symptoms or risks identified at this time. Initial Sepsis Screen: Does the patient meet any 2 criteria? No. Patient's initial sepsis screen is negative. Does the patient have a suspected source of infection? No. Patient's initial sepsis screen is negative. Risk Assessment: Do you want to hurt yourself or someone else? Patient reports no desire to harm self or others. Onset of symptoms was December 29, 2023. 23:51 Method Of Arrival: Ambulatory vc1 23:51 Acuity: BOZENA 3 vc1 Triage Assessment: 23:54 General: Appears in no apparent distress. uncomfortable, ill, obese, well groomed, vc1 Behavior is cooperative. Pain: Complains of pain in abdomen Pain does not radiate. Pain currently is 8 out of 10 on a pain scale. Quality of pain is described as crampy, sharp. EENT: No deficits noted. No signs and/or symptoms were reported regarding the EENT system. Neuro: Level of Consciousness is awake, alert, obeys commands, Oriented to person, place, time, situation, Appropriate for age. Cardiovascular: Capillary refill < 3 seconds Patient's skin is warm and dry. Respiratory: Airway is patent Respiratory effort is even, unlabored, Respiratory pattern is regular, symmetrical. GI: Reports lower abdominal pain, upper abdominal pain, nausea, vomiting. : No deficits noted. No signs and/or symptoms were reported regarding the genitourinary system. Derm: Skin is intact, is healthy with good turgor, Skin is dry, Skin is normal. Musculoskeletal: Circulation, motion, and sensation intact. Range of motion: intact in all extremities. 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 - Infectious Disease History:: Denies. - Social history:: Smoking status: Patient denies any tobacco usage or history of. Screenin:53 [facility] ED Fall Risk Assessment (Adult) History of falling in the last 3 months, vc1 including since admission No falls in past 3 months (0 pts) Confusion or Disorientation No (0 pts) Intoxicated or Sedated No (0 pts) Impaired Gait No (0 pts) Mobility Assist Device Used No (0 pt) Altered Elimination No (0 pt) Score/Fall Risk Level 0 - 2 = Low Risk Oriented to surroundings, Maintained a safe environment, Educated pt \T\ family on fall prevention, incl call for assistance when getting out of bed. Abuse screen: Denies threats or abuse. Nutritional screening: No deficits noted. Tuberculosis screening: No symptoms or risk factors identified. Assessment: 12/31 01:12 General: Appears distressed, uncomfortable, Behavior is calm, cooperative, appropriate bm8 for age. Pain: Complains of pain in epigastric area and abdomen Pain currently is 8 out of 10 on a pain scale. Quality of pain is described as burning, aching. Neuro: No deficits noted. Level of Consciousness is awake, alert, obeys commands, Oriented to person, place, time, situation, Appropriate for age. Cardiovascular: Denies chest pain, Capillary refill < 3 seconds in bilateral fingers Patient's skin is warm and dry. Respiratory: Airway is patent Respiratory effort is even, unlabored, Respiratory pattern is regular, symmetrical, Breath sounds are clear bilaterally. GI: Abdomen is round non-distended, Bowel sounds present X 4 quads. Abdomen is tender to palpation in right upper quadrant Reports upper abdominal pain, epigastric pain, nausea, Pain is 9 out of 10 on a pain scale. vomiting. : No signs and/or symptoms were reported regarding the genitourinary system. EENT: No signs and/or symptoms were reported regarding the EENT system. Derm: No signs and/or symptoms reported regarding the dermatologic system. Musculoskeletal: No signs and/or symptoms reported regarding the musculoskeletal system. 01:44 Reassessment: Patient and/or family updated on plan of care and expected duration. Pain bm8 level reassessed. Patient is alert, oriented x 3, equal unlabored respirations, skin warm/dry/pink. Patient states symptoms have improved. Pain: Complains of pain in right upper quadrant and epigastric area Pain currently is 7 out of 10 on a pain scale. 02:42 Reassessment: Patient appears in no apparent distress at this time. Patient and/or bm8 family updated on plan of care and expected duration. Pain level reassessed. Patient is alert, oriented x 3, equal unlabored respirations, skin warm/dry/pink. Patient states symptoms have improved. 04:05 Reassessment: Patient appears in no apparent distress at this time. Patient and/or bm8 family updated on plan of care and expected duration. Pain level reassessed. Patient is alert, oriented x 3, equal unlabored respirations, skin warm/dry/pink. pt is resting with eyes closed breathing is even unlabored with symmetrical rise and fall of chest a this time Patient denies pain at this time. Patient states feeling better. Patient states symptoms have improved. Vital Signs: 12/30 23:51 BP 156 / 112; Pulse 84; Resp 17; Temp 97; Pulse Ox 100% ; Weight 117.93 kg; Height 5 vc1 ft. 5 in. ; Pain 8/; 12/31 01:44 BP 127 / 87; Pulse 77; Resp 18; Temp 97; Pulse Ox 100% ; Pain 7/; bm8 02:42 BP 136 / 97; Pulse 86; Resp 17; Temp 97; Pulse Ox 100% ; Pain 6/10; bm8 04:08 BP 128 / 90; Pulse 85; Resp 18; Temp 97.2; Pulse Ox 100% ; Pain 0/; bm8 12/30 23:51 Body Mass Index 43.27 (117.93 kg, 165.1 cm) vc1 11/11 23:51 Pain Scale: Adult vc1 12/31 01:44 Pain Scale: Adult bm8 02:42 Pain Scale: Adult bm8 04:08 Pain Scale: Adult bm8 [place] Coma Score: 01:44 Eye Response: spontaneous(4). Motor Response: obeys commands(6). Verbal Response: bm8 oriented(5). Total: 15. 02:42 Eye Response: spontaneous(4). Motor Response: obeys commands(6). Verbal Response: bm8 oriented(5). Total: 15. 04:08 Eye Response: spontaneous(4). Motor Response: obeys commands(6). Verbal Response: bm8 oriented(5). Total: 15. ED Course: 12/30 23:06 Patient arrived in ED. jj6 23:10 Lisseth Dill PA-C is PHCP. sb4 23:10 Branden Urban MD is Attending Physician. sb4 23:52 Triage completed. vc1 23:53 Arm band placed on right wrist. vc1 12/31 01:11 Gerard Feliciano, RN is Primary Nurse. bm8 01:12 No provider procedures requiring assistance completed. Initial lab(s) drawn, by me, bm8 sent to lab. Inserted saline lock: 20 gauge in right antecubital area, using aseptic technique. Blood collected. Flushed with 10 mL NS. Patient maintains SpO2 saturation greater than 95% on room air. 01:44 Patient has correct armband on for positive identification. Placed in gown. Bed in low bm8 position. Call light in reach. Side rails up X2. Adult w/ patient. Client placed on continuous cardiac and pulse oximetry monitoring. NIBP monitoring applied. Pulse ox on. NIBP on. Door closed. Noise minimized. Warm blanket given. Pillow given. Verbal reassurance given. Head of bed elevated. 02:05 CT Abd/Pelvis - IV Contrast Only In Process Unspecified. EDMS 03:41 Urinalysis w/ reflexes Sent. vk 04:27 Provided Education on: post er care. bm8 04:27 IV discontinued, intact, bleeding controlled, No redness/swelling at site. Pressure bm8 dressing applied. Administered Medications: 01:11 Drug: Famotidine IVP 20 mg IVP once; dilute with 10 mL 0.9% NaCl; give over 2 minutes bm8 Route: IVP; Site: right antecubital; 02:40 Follow up: Response: No adverse reaction bm8 01:11 Drug: Ondansetron IVP 4 mg IVP once; over 2 minutes Route: IVP; Site: right antecubital;bm8 02:41 Follow up: Response: No adverse reaction bm8 01:11 Drug: NS 0.9% IV 1000 ml IV at 1 bolus Per protocol; to be given as a bolus over 60 bm8 minutes Route: IV; Rate: 1 bolus; Site: right antecubital; 02:40 Follow up: Response: No adverse reaction; IV Status: Completed infusion; IV Intake: bm8 1000ml 01:11 Drug: morphine IVP or IV 4 mg IVP once over 4 mins Route: IVP; Infused Over: 4 mins; bm8 Site: right antecubital; 02:40 Follow up: Response: No adverse reaction bm8 02:10 Drug: Promethazine IVP 25 mg IVP once Route: IVP; Site: right antecubital; bm8 04:28 Follow up: Response: No adverse reaction bm8 Medication: 01:44 VIS not applicable for this client. bm8 Intake: 02:40 IV: 1000ml; Total: 1000ml. bm8 Outcome: 04:17 Discharge ordered by . rt 04:27 Discharged to home ambulatory, bm8 04:27 Condition: stable 04:27 Discharge instructions given to patient, family, Instructed on discharge instructions, follow up and referral plans. Demonstrated understanding of instructions, follow-up care, medications, Prescriptions given X 2, 04:29 Patient left the ED. bm8 Signatures: Dispatcher [employer] EDMS Zuleima Strickland jj6 Karina Vasquez RN RN vc1 Lisseth Dill PA-C PA-C sb4 Branden Urban MD MD rt Vanessa Mora Brad, RN RN bm8 Corrections: (The following items were deleted from the chart) 01:13 12/30 23:52 Home Meds: None; rosangela sb4
--- NOTE | 2024-01-01 04:17 | EDPHYS ---
Physician Documentation [facility] Name: Robin Bernard Age: 28 yrs Sex: Female : 1995 Arrival Date: 12/31/2023 Time: 23:05 Bed 7 Private MD: ED Physician Branden Urban HPI: 12/31 00:47 This 28 yrs old Black Female presents to ER via Ambulatory with complaints of sb4 Nausea/Vomiting. 00:47 The patient presents to the emergency department with nausea, vomiting, abdominal pain, sb4 of the epigastric area. Onset: The symptoms/episode began/occurred 2 day(s) ago. Possible causes: flare up of bowel problem, gastritis. Associated signs and symptoms: Pertinent negatives: fever, GI bleeding. The patient has experienced similar episodes in the past, a few times. 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 - Infectious Disease History:: Denies. - Social history:: Smoking status: Patient denies any tobacco usage or history of. ROS: 12/31 00:47 Constitutional: Negative for fever, chills, and weight loss, sb4 Abdomen/GI: Positive for abdominal pain, nausea and vomiting, All other systems are negative, Exam: 00:47 Head/Face: Normocephalic, atraumatic. Eyes: Extra-ocular motions intact. Periorbital sb4 areas with no swelling, redness, or edema. ENT: Mucous membranes moist. Cardiovascular: Regular rate and rhythm with a normal S1 and S2. Respiratory: No increased work of breathing, no retractions or nasal flaring. Abdomen/GI: Soft, non-tender, no distension. Skin: Warm, dry with normal turgor. Normal color with no rashes, no lesions, and no evidence of cellulitis. 00:47 Constitutional: The patient appears alert, awake, in obvious pain, uncomfortable, Vital Signs: 12/30 23:51 BP 156 / 112; Pulse 84; Resp 17; Temp 97; Pulse Ox 100% ; Weight 117.93 kg; Height 5 vc1 ft. 5 in. ; Pain 8/; 12/31 01:44 BP 127 / 87; Pulse 77; Resp 18; Temp 97; Pulse Ox 100% ; Pain 7/10; bm8 02:42 BP 136 / 97; Pulse 86; Resp 17; Temp 97; Pulse Ox 100% ; Pain 6/10; bm8 04:08 BP 128 / 90; Pulse 85; Resp 18; Temp 97.2; Pulse Ox 100% ; Pain 0/10; bm8 12/30 23:51 Body Mass Index 43.27 (117.93 kg, 165.1 cm) vc1 12/30 23:51 Pain Scale: Adult vc1 12/31 01:44 Pain Scale: Adult bm8 02:42 Pain Scale: Adult bm8 04:08 Pain Scale: Adult bm8 [place] Coma Score: 01:44 Eye Response: spontaneous(4). Motor Response: obeys commands(6). Verbal Response: bm8 oriented(5). Total: 15. 02:42 Eye Response: spontaneous(4). Motor Response: obeys commands(6). Verbal Response: bm8 oriented(5). Total: 15. 04:08 Eye Response: spontaneous(4). Motor Response: obeys commands(6). Verbal Response: bm8 oriented(5). Total: 15. MDM: 12/30 23:23 Medical Screening Exam initiated sb4 12/31 04:23 Differential diagnosis: Colitis, gastroenteritis, bowel obstruction. Data reviewed: rt vital signs, nurses notes, lab test result(s), radiologic studies. Consideration of Admission/Observation Escalation of care including admission/observation considered. Symptoms improving with treatment in the ED, workup is benign, informed of findings of ovarian cyst, stable for outpatient care.. I considered the following discharge prescriptions or medication management in the emergency department Medications were administered in the Emergency Department. See MAR. Independent interpretation of the following test(s) in the Emergency Department CT Scan: My interpretation is No bowel obstruction syndrome interpretation of CT scan images. Care significantly affected by the following chronic conditions: Gastritis. Counseling: I had a detailed discussion with the patient and/or guardian regarding the historical points, exam findings, and any diagnostic results supporting the discharge/admit diagnosis, lab results, radiology results, the need for outpatient follow up, to return to the emergency department if symptoms worsen or persist or if there are any questions or concerns that arise at home. Response to treatment: the patient's symptoms have markedly improved after treatment. 12/30 23:57 Order name: CBC with Diff; Complete Time: 01:24 sb4 12/30 23:57 Order name: CMP; Complete Time: 01:32 sb4 12/30 23:57 Order name: Lipase; Complete Time: 01:32 sb4 12/30 23:57 Order name: Urinalysis w/ reflexes; Complete Time: 04:14 sb4 12/31 00:58 Order name: Test, Serum; Complete Time: 01:32 jb4 12/30 23:57 Order name: CT Abd/Pelvis - IV Contrast Only sb4 12/30 23:57 Order name: IV Saline Lock; Complete Time: 01:11 sb4 12/30 23:57 Order name: Labs collected and sent; Complete Time: 01:11 sb4 Administered Medications: 01:11 Drug: Famotidine IVP 20 mg IVP once; dilute with 10 mL 0.9% NaCl; give over 2 minutes bm8 Route: IVP; Site: right antecubital; 02:40 Follow up: Response: No adverse reaction bm8 01:11 Drug: Ondansetron IVP 4 mg IVP once; over 2 minutes Route: IVP; Site: right antecubital;bm8 02:41 Follow up: Response: No adverse reaction bm8 01:11 Drug: NS 0.9% IV 1000 ml IV at 1 bolus Per protocol; to be given as a bolus over 60 bm8 minutes Route: IV; Rate: 1 bolus; Site: right antecubital; 02:40 Follow up: Response: No adverse reaction; IV Status: Completed infusion; IV Intake: bm8 1000ml 01:11 Drug: morphine IVP or IV 4 mg IVP once over 4 mins Route: IVP; Infused Over: 4 mins; bm8 Site: right antecubital; 02:40 Follow up: Response: No adverse reaction bm8 02:10 Drug: Promethazine IVP 25 mg IVP once Route: IVP; Site: right antecubital; bm8 04:28 Follow up: Response: No adverse reaction bm8 Disposition: 04:23 Co-signature as Attending Physician, Branden Urban MD I reviewed the patient's care rt provided by Advanced Practice Provider \T\ agree w/ the diagnosis \T\ care plan. I personally saw the pt \T\ performed a substantive portion of the visit, incldng all aspects of the (History/Exam/Medical Decision Making). Disposition Summary: 01/01/24 04:17 Discharge Ordered Notes: Location: Home rt Problem: new rt Symptoms: have improved rt Condition: Stable rt Diagnosis - Nausea with vomiting, unspecified rt Followup: rt - With: Private Physician - When: 2 - 3 days - Reason: Discharge Instructions: - Discharge Summary Sheet rt - Nausea and Vomiting, Adult rt Forms: - Medication Reconciliation Form rt - Antibiotic Education rt - Prescription Opioid Use rt - Patient Portal Instructions rt - Leadership Thank You Letter rt Prescriptions: - promethazine 25 mg Oral tablet - take 1 tablet ORAL route every 6 hours As needed; 15 tablet; Refills: 0, rt Product Selection Permitted - dicyclomine 10 mg Oral capsule - take 1 capsule ORAL route 4 times per day as needed; 15 capsule; Refills: 0, rt Product Selection Permitted Signatures: Dispatcher [employer] EDKarina Ortiz RN RN vc1 Lisseth Dill PALorraine PA-C sb4 Branden Urban MD MD rt Gerard Feliciano, RN RN bm8 Corrections: (The following items were deleted from the chart) 01:13 12/30 23:52 Home Meds: None; rosangela mancini 12/31 01:26 12/30 23:58 Test, Urine+[id number] ordered. EDMS EDMS
--- NOTE | 2024-01-01 04:24 | RAD REPORT ---
EXAM: CT Abdomen and Pelvis With Intravenous Contrast CLINICAL HISTORY: Abd pain. TECHNIQUE: Axial computed tomography images of the abdomen and pelvis with intravenous contrast. Sagittal and coronal reformatted images were created and reviewed. This CT exam was performed using one or more of the following dose reduction techniques: automated exposure control, adjustment of the mA a nd/or kV according to patient size, and/or use of iterative reconstruction technique. COMPARISON: CT Abdomen pelvis with IV contrast 02/11/2020. FINDINGS: Lung bases: Unremarkable. No mass. No consolidation. ABDOMEN: Liver: Unremarkable. No mass. Gallbladder and bile ducts: Unremarkable. No calcified stones. No ductal dilation. Pancreas: Unremarkable. No mass. No ductal dilation. Spleen: Unremarkable. No splenomegaly. Adrenals: Unremarkable. No mass. Kidneys and ureters: Unremarkable. Normal renal cortical enhancement. No calculi. No hydronephros is. Stomach and bowel: Unremarkable. No obstruction. No mucosal thickening. PELVIS: Appendix: Normal caliber appendix. No findings to suggest acute appendicitis. Bladder: Unremarkable. No mass. Reproductive: 3.3 cm left ovarian cyst. The uterus and right ovary are unremarkable as visualized . ABDOMEN and PELVIS: Intraperitoneal space: Unremarkable. No free air. No significant fluid collection. Bones/joints: Mild multilevel spondylosis. No acute fracture. No dislocation. Soft tissues: Small fat-containing umbilical hernia. Vasculature: Unremarkable. No abdominal aortic aneurysm. Lymph nodes: Unremarkable. No enlarged lymph nodes. IMPRESSION: 1. No acute inflammatory process identified within the abdomen and pelvis. 2. A 3.3 cm left ovarian cyst. No follow-up imaging is recommended. Reference: JACR 2019;17(2): 248-254 3. Other findings as above. Electronically signed by: Bret Mayorga MD 01/01/2024 03:51 AM [facility] Due to temporary technical issues with the PACS/Tweetwall reporting system, reports are being nicola d by the in-house radiologist without review as a courtesy to ensure prompt reporting the interpreting radiologist is fully responsible for the content of the report. Transcribed Date/Time: 01/01/2024 4:23 AM
[2024-01-01 04:33] VITALS: O2SAT 100
[2024-01-01 04:37] VITALS: BP 128/90; TEMP 97.2
== END 2024-01-01 04:29 | disposition home or self-care (01) ==
LOC: ER 23:05
DX: R11.2 Nausea with vomiting, unspecified (principal); R10.13 Epigastric pain; Z28.310 Unvaccinated for COVID-19
CPT/HCPCS: 85025; 81001; 36415; 84703; 83690; 80053; 74177; Q9967; J2550; J2405; J7030

== ENCOUNTER 2024-01-01 18:08 | Emergency (ER) | payer OTHER ==
--- OUTSIDE RECORDS SUMMARY | 2024-01-01 18:15 | XMS REPORT | Continuity of Care Document ---
Author Name Unknown Address [address] [facility] [address] [place] [address] [facility] Address [address] [facility] [place] [address] Care Team Providers Care Police Captain Name Role Phone Jess Munson MD Primary Care Physician + [phone] JESS MUNSON Attending Clinician Unavailab JESS Killian Attending Clinician Unavailab VANESSA Keene Attending Clinician Unavailable VANESSA LEYVA Attending Clinician Unavailable TIANNA MEI Attending Clinician Unavailable TIANNA MEI Attending Clinician Unavailable Jess Munson MD Attending Clinician +[phone] Yann Ordonez Attending Clinician +[phone] Yisel Hart MD Attending Clinician +[phone] YISEL HART Attending Clinician Unavailable KONRAD ORDOÑEZ Attending Clinician Unavailab KONRAD Owens Attending Clinician Unavailab Konrad Owens NP Attending Clinician [phone] Tianna Young Attending Clinician +[phone] ISAAC SHAY Attending Clinician Unavailable Vanessa Leyva MD Attending Clinician [phone] Jose De Jesus Medina MD Attending Clinician [phone] JOSE DE JESUS EMDINA Attending Clinician Unavailable JOSE DE JESUS MEDINA Attending Clinician Unavailable 2, [facility] Attending Clinician Unavailable KELLY SIMMS Attending Clinician UnavailKELLY Ferrera Attending Clinician Unavailelliott Bauer MD, Caro Ferrara Attending Clinician [phone] Kelly Simms MD Attending Clinician + [phone] TIFF ISABEL Attending Clinician Unavailable TIFF ISABEL Attending Clinician Unavailable Tiff Isabel NP Attending Clinician [phone], [facility] Attending Clinician Unavailable BONITA TRIVEDI Attending Clinician Unavailab Bonita Hernandez DO Attending Clinician +[phone] Carlos Ibrahim MD Attending Clinician + [phone] Doctor Unassigned, [place] Attending Clinician U NICOLE Aparicio Attending Clinician UnavailNICOLE Sellers Attending Clinician UnavailKAMILA Deal Attending Clinician Unavailable JACINTA VOSS Attending Clinician Unavailgloria cristobal Provider, [facility] Temp Attending Clinician Henrietta vailable Meche Richard Attending Clinician + Jacinta Voss CNM Attending Clinician [phone] MECHE ROBERSON Attending Clinician Unavail able Rodrick Carlisle Attending Clinician Unava ilDREW Singh Attending Clinician Unavailable RODRICK PETE Attending Clinician Unavailab Wilver Weinstein MD Attending Clinician + [phone] LOVE DOWELL Attending Clinician UnavailLOVE Gonzalez Attending Clinician UnavailBRENDA Pedro Attending Clinician Unavailable Didier VARGAS, Brenda Attending Clinician [phone] Fernando Acosta Attending Clinician + [phone] Ultrasound, Ang[facility] Attending Clinician UnavailVinh Wong MD Attending Clinician +[phone] VINH MONCADA Attending Clinician Unavailable VINH MONCADA Attending Clinician Unavailable Juan BOND Ivanna Attending Clinician +[phone] Maddie Romeo MD Attending Clinician +[phone] MADDIE ROMEO Attending Clinician Unavailable Holly, [facility] Attending Clinician Unavailable CARO BAUER Attending Clinician Unavailable Caro Bauer MD S Attending Clinician +[phone] Alayna Pyle S Attending Clinician [phone] ANGUS DWYER Attending Clinician Unavailable Angus Dwyer DO Attending Clinician +[phone] Abdullahi Gomez MD Attending Clinician +[phone] Foreign Calvillo Attending Clinician + [phone] Edith Terry MD Attending Clinician + [phone] EDITH TERRY Attending Clinician Unavailable EDITH TERRY Attending Clinician Unavailable YISEL HART Admitting Clinician Unavailable Yisel Hart MD Admitting Clinician +[phone] KELLY SIMMS Admitting Clinician UnavailVANESSA Garza Admitting Clinician Unavailable Vanessa Leyva MD Admitting Clinician +[phone] BRENDA VELÁSQUEZ Admitting Clinician Unavailable Brenda Velásquez MD Admitting Clinician +[phone] Edith Terry MD Admitting Clinician +[phone] EDITH TERRY Admitting Clinician Unavailable Payers Payer Name Policy Type Policy Number Effective Date Expirati on Date Source [facility] [id number] 2021 00:00:00 Problems Condition Name Condition Details Condition Category Status Onset Date Resolution Date Last Treatment Date Treating Clinician Comments Source Hematemesi s with nausea Hematemesi s with nausea Disease Active 2023-02 0- 00:00: 00 [facility] Coffee ground emesis Coffee ground emesis Disease Active 2023-02 0- 00:00: 00 [facility] Abdominal pain, epigastric Abdominal pain, epigastric Disease Active 2023-02 0- 00:00: 00 [facility] Papanicola ou smear of cervix with low grade squamous intraepith elial lesion (LGSIL) Papanicola ou smear of cervix with low grade squamous intraepith elial lesion (LGSIL) Disease Active 5-18 00:00: 00 Overview: Formattin g of this note might be different from the original. LGSIL in 2021 needs repeat pap smear in 2022. 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 on Disease Active 05-31 00:00: 00 [facility] Tetrahydro cannabinol (THC) use disorder, mild, abuse Tetrahydro cannabinol (THC) use disorder, mild, abuse Disease Resolve d 5-10 00:00: 00 2022-12-25 00:00:00 2022-12-25 13:59:24 [facility] Chronic hypertensi on with superimpos ed preeclamps ia Chronic hypertensi on with superimpos ed preeclamps ia Disease Resolve d 2021-02 0-08 00:00: 00 2022-01-20 00:00:00 2022-01-20 14:17:40 [facility] Supervisio n of high risk , antepartum Supervisio n of high risk , antepartum Disease Resolve d 5-05 00:00: 00 2022-01-20 00:00:00 2022-01-20 14:17:35 [facility] GBS (group B Streptococ cus carrier), +RV culture, 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 Will need ABX in labor. [facility] Single liveborn, born in hospital, delivered by vaginal delivery Single liveborn, born in hospital, delivered by vaginal delivery Disease Resolve d 2021-02 0-09 00:00: 00 2021-12-22 00:00:00 2021-12-22 07:58:27 [facility] Morbid obesity with body mass index of 40.0-49.9 Morbid obesity with body mass index of 40.0-49.9 Disease Resolve d 2021-02 0-08 00:00: 00 2021-12-22 00:00:00 2021-12-22 15:59:51 [facility] Severe pre-eclamp shena in third trimester Severe pre-eclamp shena in third trimester Disease Resolve d 2021-02 0-08 00:00: 00 2021-12-22 00:00:00 2021-12-22 07:58:22 [facility] Elevated blood pressure reading without diagnosis of hypertensi on Elevated blood pressure reading without diagnosis of hypertensi on Disease Resolve d 2021-0 9-08 00:00: 00 2021-12-22 00:00:00 2021-12-22 07:58:07 [facility] Proteinuri a affecting in third trimester Proteinuri a affecting in third trimester Disease Resolve d 2021-0 9-08 00:00: 00 2021-12-22 00:00:00 2021-12-22 07:58:17 [facility] Intractabl e nausea and vomiting Intractabl e nausea and vomiting Disease Resolve d 2021-0 7-05 00:00: 00 2021-12-22 00:00:00 2021-12-22 07:58:09 [facility] Urinary tract infection without hematuria, site unspecifie d Urinary tract infection without hematuria, site unspecifie d Disease Resolve d 2021-0 6-02 00:00: 00 2021-12-22 00:00:00 2021-12-22 07:57:57 [facility] Nausea and vomiting during Nausea and vomiting during Disease Resolve d 2021-0 5-10 00:00: 00 2021-12-22 00:00:00 2021-12-22 07:58:11 [facility] Nausea and vomiting during Nausea and vomiting during Disease Resolve d 2021-0 5-10 00:00: 00 2021-12-22 00:00:00 2021-12-22 07:58:11 [facility] Primigravi da in second trimester Primigravi da in second trimester Disease Resolve d 2021-0 5-05 00:00: 00 2021-12-22 00:00:00 2021-12-22 07:58:15 [facility] Obesity in Obesity in Disease Resolve d 2021-0 5-05 00:00: 00 2021-12-22 00:00:00 2021-12-22 07:58:13 [facility] Chronic hypertensi on affecting Chronic hypertensi on affecting Disease Resolve d 2021-0 4-24 00:00: 00 2021-12-22 00:00:00 2021-12-22 07:58:04 [facility] BMI 40.0-44.9, adult BMI 40.0-44.9, adult Disease Resolve d 2021-0 4-23 00:00: 00 2021-12-22 00:00:00 2021-12-22 15:59:13 [facility] 15 weeks gestation of 15 weeks gestation of Disease Resolve d 2021-0 4-12 00:00: 00 2021-12-22 00:00:00 2021-12-22 07:58:01 [facility] Hyperemesi s Hyperemesi s Disease Resolve d 2021-0 5-10 00:00: 00 2021-11-26 00:00:00 2021-11-26 09:09:11 [facility] Hyperbilir ubinemia Hyperbilir ubinemia Disease Resolve d 2021-0 4-25 00:00: 00 2021-11-26 00:00:00 2021-11-26 09:09:06 [facility] Hypomagnes emia Hypomagnes emia Disease Resolve d 2022-0 4-25 00:00: 00 2021-11-26 00:00:00 2021-11-26 09:09:05 [facility] Hypocalcem ia Hypocalcem ia Disease Resolve d 0 4-25 00:00: 00 2021-11-26 00:00:00 2021-11-26 09:09:03 [facility] Hypokalemi a Hypokalemi a Disease Resolve d 4-12 00:00: 00 2021-11-26 00:00:00 2021-11-26 09:09:30 [facility] Hyponatrem ia Hyponatrem ia Disease Resolve d 4-12 00:00: 00 2021-11-26 00:00:00 2021-11-26 09:09:33 [facility] Tachycardi a Tachycardi a Disease Resolve d 4-12 00:00: 00 2021-11-26 00:00:00 2021-11-26 09:09:30 [facility] Nausea and vomiting in prior to 22 weeks gestation Nausea and vomiting in prior to 22 weeks gestation Disease Resolve d 4-12 00:00: 00 2021-11-26 00:00:00 2021-11-26 09:09:43 [facility] Nausea and vomiting in prior to 22 weeks gestation Nausea and vomiting in prior to 22 weeks gestation Disease Resolve d 4-12 00:00: 00 2021-11-26 00:00:00 2021-11-26 09:09:43 [facility] Allergies, Adverse Reactions, Alerts Allergy Name Allergy Type Status Severity Reaction(s) Onset Date Inactive Date Treating Clinician Comments Source Egg Propensi ty to adverse reaction s Active Unknown - See comments - 00:00: 00 [facility] EGG DRUG INGREDI Active Unknown-Cmnt 5-11 00:00: 00 [facility] Metoclop ramide Drug Allergy Active Extra pyramidal effects 4-12 00:00: 00 [facility] METOCLOP RAMIDE DRUG INGREDI Active Med EP Effects 12 00:00: 00 [facility] Social History Social Habit Start Date Stop Date Quantity Comments Source ASSERTION 2021-03-26 00:00:00 [facility] Sexual orientation [facility] History of tobacco use Current smoker [facility] Alcoholic beverage intake 2023-12-25 00:00:00 2023-12-25 00:00:00 Current drinker of alcohol (finding) [facility] Alcohol Comment 2023-11-26 00:00:00 2023-11-26 00:00:00 ocassional [facility] Tobacco use and exposure 2023-11-26 00:00:00 2023-11-26 00:00:00 Smokeless tobacco non-user [facility] History of Social function 2023-11-22 00:00:00 2023-11-22 00:00:00 [facility] Alcohol intake 2023-06-21 00:00:00 2023-06-21 00:00:00 Ex-drinker (finding) [facility] Exposure to SARS-CoV-2 (event) 2022-01-10 00:00:00 2022-01-20 14:04:00 Not sure [facility] Tobacco Comment 2021-09-15 00:00:00 2021-09-15 00:00:00 marijuana,no nicotine stopped for [facility] Sex assigned at 1995 00:00:00 1995 00:00:00 [facility] Smoking Status Start Date Stop Date Source Ex-smoker 2023-11-26 00:00:00 2023-11-26 00:00:00 [facility] Medications Ordered Medication Name Filled Medication Name Start Date Stop Date Current Medication? Ordering Clinician Indication Dosage Frequency Signature (SIG) Comments Components Source phentermine 37.5 mg tablet 2023-02 00:00: 00 Yes [id number] 104 37.5mg Take 1 tablet by mouth daily with breakfast. [facility] zolpidem 5 mg tablet 2023-02 00:00: 00 Yes [id number] 5mg Take 1 tablet by mouth at bedtime as needed for Insomnia. [facility] ondansetron 4 mg disintegrat ing tablet 2023-02 00:00: 00 Yes [id number] 4mg Take 1 tablet by mouth every 8 (eight) hours as needed for Nausea and Vomiting (N/V). [facility] ondansetron 4 mg tablet 2023-02 00:00: 00 Yes [id number] 4mg Take 1 tablet by mouth every 8 (eight) hours as needed for Nausea and Vomiting (N/V). [facility] TRAZODONE 100 mg tablet 2023-02 00:00: 00 Yes [id number] 100mg TAKE 1 TABLET BY MOUTH EVERYDAY AT BEDTIME [facility] pantoprazol e 40 mg EC tablet 11-18 00:00: 00 Yes [id number] 40mg Take 1 tablet by mouth in the morning. [facility] phentermine 37.5 mg tablet 11-18 00:00: 00 12-24 00:00 :00 No [id number] 104 37.5mg Take 1 tablet by mouth daily with breakfast. [facility] zolpidem 5 mg tablet 11-18 00:00: 00 12-24 00:00 :00 No [id number] 5mg Take 1 tablet by mouth at bedtime as needed for Insomnia. [facility] proMETHazin e (PHENERGAN) 12.5 mg in NS 50 mL IV piggyback (CNR) 11-17 15:30: 00 11-17 15:49 :00 No 12.5mg 12.5 mg, IV Piggyback, at 200 mL/hr Administer over 15 Minutes, ONCE, 1 dose, On 11/18/23 at 1030, RACHAEL [facility] morpHINE (4 mg/mL) injection 4 mg 11-17 15:30: 00 11-17 15:34 :00 No 4mg 4 mg, Slow IV Push, ONCE, 1 dose, On 11/18/23 at 1030, STAT [facility] ketorolac (TORADOL) injection 30 mg 11-17 15:00: 00 11-17 14:09 :00 No 30mg 30 mg, Slow IV Push, ONCE, 1 dose, On Sun11/18/23 at 1000, [facility] famotidine (PEPCID (PF)) injection 20 mg 11-17 14:15: 00 11-17 14:09 :00 No 20mg 20 mg, Slow IV Push, ONCE, 1 dose, On Sun11/18/23 at 0915, [facility] iopamidol (ISOVUE 370-500 mL) injection 100 mL 11-17 13:30: 00 11-17 13:45 :00 No [id number] 100mL 100 mL, Intravenou s, ONCE, 1 dose, On Sun11/18/23 at 0845, [facility] NaCl 0.9% (NS) IV infusion 1,000 mL 11-17 13:00: 00 11-17 15:15 :00 No 1000mL at 999 mL/hr, Intravenou s, ONCE, 1 dose, On Sun11/18/23 at 0800, [facility] proMETHazin e (PHENERGAN) 12.5 mg in NS 50 mL IV piggyback (CNR) 11-17 12:30: 00 11-17 13:33 :00 No 12.5mg 12.5 mg, IV Piggyback, at 200 mL/hr Administer over 15 Minutes, ONCE, 1 dose, On Sun11/18/23 at 0730, [facility] fentanyl PF (SUBLIMAZE (PF)) injection 100 mcg 11-17 11:15: 00 11-17 11:16 :00 No 100ug 100 mcg, Slow IV Push, ONCE, 1 dose, On Sun11/18/23 at 0615, [facility] ondansetron (ZOFRAN (PF)) injection 8 mg 11-17 11:00: 00 11-17 11:10 :00 No 8mg 8 mg, Slow IV Push, ONCE, 1 dose, On Sun11/18/23 at 0600, [facility] sodium chloride (NS) injection 5 mL 11-17 10:51: 45 Yes 5mL 5 mL, Intravenou s, PRN, Starting on Sun11/18/23 at 0551, Until Discontinu ed, Routine, IV line flushing [facility] proMETHazin e 25 mg tablet 11-17 00:00: 00 Yes [id number] 25mg Take 1 tablet by mouth every 6 (six) hours as needed for Nausea and Vomiting (N/V). [facility] traMADoL 50 mg tablet 11-17 00:00: 00 Yes [id number] 50mg Take 1 tablet by mouth every 6 (six) hours as needed (pain). Indication s: acute pain [facility] zolpidem 5 mg tablet 11-17 00:00: 00 11-17 00:00 :00 No [id number] 5mg Take 1 tablet by mouth at bedtime as needed for Insomnia. [facility] KCL (KLOR-CON M20) tablet 20 mEq 11-07 19:30: 00 11-07 19:56 :00 No 20meq 20 mEq, Oral, ONCE, 1 dose, On Sun11/08/23 at 1430, [facility] proMETHazin e (PHENERGAN) 12.5 mg in NS 50 mL IV piggyback (CNR) 11-07 17:45: 00 11-07 18:53 :00 No 12.5mg 12.5 mg, IV Piggyback, at 200 mL/hr Administer over 15 Minutes, ONCE, 1 dose, On Sun11/08/23 at 1245, [facility] ondansetron (ZOFRAN (PF)) injection 4 mg 11-07 16:30: 00 11-07 16:38 :00 No 4mg 4 mg, Slow IV Push, ONCE, 1 dose, On Gabby 11/08/23 at 1130, [facility] famotidine (PEPCID (PF)) injection 20 mg 11-07 16:30: 00 11-07 16:38 :00 No 20mg 20 mg, Slow IV Push, ONCE, 1 dose, On Gabby 11/08/23 at 1130, [facility] NaCl 0.9% (NS) bolus infusion 1,000 mL 11-07 16:30: 00 11-07 19:53 :00 No 1000mL at 999 mL/hr, 1,000 mL, IV Infusion, ONCE, 1 dose, On Gabby 11/08/23 at 1130, [facility] morpHINE (4 mg/mL) injection 4 mg 11-07 15:45: 00 11-07 18:39 :00 No 4mg 4 mg, Slow IV Push, ONCE, 1 dose, On Gabby 11/08/23 at 1045, [facility] ondansetron 4 mg disintegrat ing tablet 11-07 00:00: 00 11-12 04:59 :00 Yes [id number] 4mg Take 1 tablet by mouth every 8 (eight) hours as needed for Nausea and Vomiting (N/V) for up to 4 days. [facility] zolpidem 5 mg tablet 10-18 00:00: 00 11-15 00:00 :00 No [id number] 5mg Take 1 tablet by mouth at bedtime as needed for Insomnia. [facility] ergocalcife rol, vitamin d2, (VITAMIN D2) 1,250 mcg (50,000 unit) capsule 10-15 00:00: 00 Yes [id number] 06359O Take 1 capsule by mouth weekly. [facility] phentermine 37.5 mg tablet 10-15 00:00: 00 11-18 00:00 :00 No [id number] 37.5mg Take 1 tablet by mouth daily with breakfast. [facility] ergocalcife rol, vitamin d2, (VITAMIN D2) 1,250 mcg (50,000 unit) capsule 10-02 00:00: 00 10-14 00:00 :00 No [id number] 03601A Take 1 capsule by mouth weekly. [facility] zolpidem 5 mg tablet 0 -25 00:00: 00 10-15 00:00 :00 No [id number] 5mg Take 1 tablet by mouth at bedtime as needed for Insomnia. [facility] phentermine 37.5 mg tablet 25 00:00: 00 10-14 00:00 :00 No [id number] 37.5mg Take 1 tablet by mouth daily with breakfast. [facility] phentermine 37.5 mg tablet 17 00:00: 00 09-11 00:00 :00 No [id number] 37.5mg Take 1 tablet by mouth daily with breakfast. [facility] zolpidem 5 mg tablet 08-05 00:00: 00 09-11 00:00 :00 No [id number] 5mg Take 1 tablet by mouth at bedtime as needed for Insomnia. [facility] traZODone 100 mg tablet 605 00:00: 00 12-09 00:00 :00 No [id number] 100mg Take 1 tablet by mouth at bedtime. [facility] acetaminoph en (TYLENOL) tablet 650 mg 06-20 17:30: 00 06-20 17:25 :00 No 650mg 650 mg, Oral, ONCE, 1 dose, On Sun06/21/23 at 1230, RACHAEL [facility] sulfamethox azole-trime thoprim 800-160 mg per tablet 06-20 00:00: 00 08-05 00:00 :00 No [id number] 1{tbl} Take 1 tablet by mouth every 12 (twelve) hours. [facility] phentermine 37.5 mg tablet 4-09 00:00: 00 08-05 00:00 :00 No [id number] 37.5mg Take 1 tablet by mouth daily with breakfast. [facility] traZODone 100 mg tablet 3-04 00:00: 00 07-24 00:00 :00 No [id number] 100mg Take 1 tablet by mouth at bedtime. [facility] phentermine 37.5 mg tablet 2- 00:00: 00 05-28 00:00 :00 No [id number] 37.5mg Take 1 tablet by mouth daily with breakfast. [facility] zolpidem 5 mg tablet 2- 00:00: 00 08-05 00:00 :00 No [id number] 5mg Take 1 tablet by mouth at bedtime as needed for Insomnia. [facility] phentermine 37.5 mg tablet 03-02 00:00: 00 04-11 00:00 :00 No [id number] 37.5mg Take 1 tablet by mouth daily with breakfast. [facility] zolpidem 5 mg tablet - 00:00: 00 04-05 00:00 :00 No [id number] 5mg Take 1 tablet by mouth at bedtime as needed for Insomnia. [facility] phentermine 37.5 mg tablet 2022-02 2 00:00: 00 03-02 00:00 :00 No [id number] 37.5mg Take 1 tablet by mouth daily with breakfast. [facility] traZODone 100 mg tablet 2022-02 2- 00:00: 00 04-22 00:00 :00 No [id number] 100mg Take 1 tablet by mouth at bedtime. [facility] phentermine 37.5 mg tablet 2022-02 2-06 00:00: 00 01-26 00:00 :00 No [id number] 37.5mg Take 1 tablet by mouth daily with breakfast. [facility] zolpidem 5 mg tablet 2022-02 00:00: 00 02-19 00:00 :00 No [id number] 5mg Take 1 tablet by mouth at bedtime as needed for Insomnia. [facility] TRAZODONE 50 mg tablet 2022-02 00:00: 00 01-24 00:00 :00 No [id number] 50mg TAKE 1 TABLET BY MOUTH EVERYDAY AT BEDTIME [facility] ramelteon 8 mg tablet 2022-02 00:00: 00 01-24 00:00 :00 No [id number] 8mg Take 1 tablet by mouth at bedtime. [facility] Doxepin 6 mg Tab 2022-02 00:00: 00 01-04 00:00 :00 No [id number] 6mg Take 6 mg by mouth at bedtime. [facility] ergocalcife rol, vitamin d2, (VITAMIN D2) 1,250 mcg (50,000 unit) capsule 2022-02 00:00: 00 09-30 00:00 :00 No [id number] 52681T Take 1 capsule by mouth weekly. [facility] traZODone 50 mg tablet 2022-02 00:00: 00 01-16 00:00 :00 No [id number] 50mg Take 1 tablet by mouth at bedtime. [facility] medroxyPROG ESTERone (DEPO-PROVE RA) syringe 150 mg 2021-02 21:15: 00 01-20 20:41 :00 No [id number] 150mg [facility] NIFEdipine ER 30 mg tablet 2021-02 00:00: 00 01-20 00:00 :00 No [id number] 30mg Take 1 tablet by mouth in the morning. [facility] NIFEdipine ER tablet 30 mg 2021-02 0-10 04:00: 00 Yes 30mg 30 mg, Oral, DAILY, First dose on 11/27/21 at 2300, Until Discontinu ed, Routine [facility] vitamin w/FA tablet 2021-02 0- 00:00: 00 01-20 00:00 :00 No [id number] 1{tbl} Take 1 tablet by mouth in the morning. [facility] docusate 100 mg capsule 2021-02 0- 00:00: 00 01-20 00:00 :00 No [id number] 200mg Take 2 capsules by mouth once daily as needed for Constipati on. [facility] ferrous sulfate 325 mg (65 mg iron) tablet 2021-02 00:00: 00 01-20 00:00 :00 No [id number] 325mg Take 1 tablet by mouth in the morning and 1 tablet in the evening. [facility] ibuprofen 600 mg tablet 2021-02 00:00: 00 01-20 00:00 :00 No [id number] 600mg Take 1 tablet by mouth every 6 (six) hours as needed (Pain). Take with food or milk. [facility] D5W 0.45% NaCl (1/2NS) IV infusion 1,000 mL 2021-02 19:38: 00 Yes 1000mL at 50 mL/hr, 1,000 mL, IV Infusion, CONTINUOUS , Starting on 11/27/21 at 1445, Until Discontinu ed, Routine [facility] HYDROcodone -acetaminop hen (NORCO 5) 5-325 mg tablet 1 tablet 2021-02 12:41: 25 Yes 1{tbl} 1 tablet, Oral, Q6HPRN, Starting on 11/27/21 at 0741, Until Discontinu ed, Routine, Pain (scale 7-10) [facility] ibuprofen (IBU) tablet 600 mg 2021-02 12:41: 25 Yes 600mg 600 mg, Oral, Q6HPRN, Starting on 11/27/21 at 0741, Until Discontinu ed, Routine, Pain (scale 4-6) [facility] acetaminoph en (TYLENOL) tablet 650 mg 2021-02 12:41: 25 Yes 650mg 650 mg, Oral, Q6HPRN, Starting on 11/27/21 at 0741, Until Discontinu ed, Routine, Pain (scale 1-3) [facility] diphenhydrA MINE (BENADRYL) tablet 25 mg 2021-02 12:41: 25 Yes 25mg 25 mg, Oral, Q6HPRN, Starting on 11/27/21 at 0741, Until Discontinu ed, Routine, Sleep, Itching [facility] ondansetron (ZOFRAN (PF)) injection 4 mg 2021-02 12:41: 25 Yes 4mg 4 mg, Slow IV Push, Q8HPRN, Starting on 11/27/21 at 0741, Until Discontinu ed, Routine, Nausea and Vomiting (N/V) [facility] simethicone (GAS RELIEF (SIMETHICON E)) chewable tablet 160 mg 2021-02 12:41: 25 Yes 160mg 160 mg, Oral, PC+HSPRN, Starting on 11/27/21 at 0741, Until Discontinu ed, Routine, Gas [facility] docusate (COLACE) capsule 200 mg 2021-02 12:41: 25 Yes 200mg 200 mg, Oral, QDAILYPRN, Starting on 11/27/21 at 0741, Until Discontinu ed, Routine, Constipati on [facility] magnesium hydroxide (MILK OF MAGNESIA) 400 mg/5 mL suspension 30 mL 2021-02 12:41: 25 Yes 30mL 30 mL, Oral, QDAILYPRN, Starting on 11/27/21 at 0741, Until Discontinu ed, Routine, Constipati on [facility] benzocaine- menthol (DERMOPLAST ) 20-0.5 % topical spray 2021-02 12:41: 25 Yes Topical, PRN, Starting on 11/27/21 at 0741, Until Discontinu ed, Routine, Perineum discomfort [facility] calcium gluconate 100 mg/mL (10%) injection 1,000 mg 2021-02 12:40: 21 Yes 1000mg 1,000 mg, Slow IV Push, PRN - SEE INSTRUCTIO NS, Starting on 11/27/21 at 0740, Until Discontinu ed, Routine, magnesium toxicity [facility] magnesium sulfate 4 mEq/mL (50 %) injection 32.48 mEq 2021-02 12:40: 21 Yes 4g 32.48 mEq (4 g), Slow IV Push, PRN - SEE INSTRUCTIO NS, Starting on 11/27/21 at 0740, Until Discontinu ed, Routine, For seizure activity (patient not on magnesium sulfate) [facility] magnesium sulfate 4 mEq/mL (50 %) injection 16.24 mEq 2021-02 0 12:40: 21 Yes 2g 16.24 mEq (2 g), Slow IV Push, PRN - SEE INSTRUCTIO NS, 2 doses, Starting on 11/27/21 at 0740, Until Discontinu ed, Routine, For seizure activity (patient already on magnesium sulfate) [facility] labetaloL (NORMODYNE) injection 20 mg 2021-02 0 [...] Hypertensi ve Emergency in [Order 4 End] [facility] oxytocin (PITOCIN) 30 units in NS 500 mL IV infusion 2021-02 02:10: 24 11-27 12:40 :54 No 2mU/min at 2-40 mL/hr, IV Infusion, TITRATE, Starting on 11/26/21 at 2110, Until 11/27/21 at 0740, Routine [facility] penicillin g pot in dextrose 3 million unit/50 mL RTU iv piggyback 3 Million Units 2021-02 22:15: 00 11-27 12:40 :54 No 310 3 Million Units, IV Piggyback, Q4H ABX, First dose on 11/26/21 at 1715, Until Discontinu ed, Administer over 60 Minutes, 50 mL
Reas on for Anti-Infec tive: Empiric Non-Surgic al Prophylaxi s
Durat ion of therapy: 72 hours [facility] fentaNYL-ro pivacaine 2 mcg/mL-0.1 % (PF) in NS 200 mL epidural infusion RTU 2021-02 20:46: 00 11-27 13:52 :31 No Epidural, ONCE INTRA PROCEDURE, Starting on 11/26/21 at 1546, Until 11/27/21 at 0852, Routine, Intra-op [facility] lidocaine-e pinephrine (XYLOCAINE W/EPINEPHRI NE) 1.5 %-1:200,000 injection 2021-02 20:43: 00 Yes Epidural, ONCE INTRA PROCEDURE, Starting on 11/26/21 at 1543, Until Discontinu ed, Routine, Intra-op [facility] penicillin g potassium 5 Million Units in NaCl 0.9% (NS) 100 mL MINI-BAG 2021-02 008 18:15: 00 11-26 19:13 :00 No 510 5 Million Units, IV Piggyback, ONCE, 1 dose, On 11/26/21 at 1315, Administer over 60 Minutes, 100 mL
Reas on for Anti-Infec tive: Empiric Non-Surgic al Prophylaxi s
Durat ion of therapy: 72 hours [facility] NaCl 0.9% (NS) IV infusion 1,000 mL 2021-02 18:00: 00 11-27 12:40 :54 No 1000mL at 50 mL/hr, IV Infusion, CONTINUOUS , Starting on 11/26/21 at 1300, Until 11/27/21 at 0740, Routine [facility] oxytocin (PITOCIN) 30 units in NS 500 mL IV infusion 2021-02 14:31: 25 11-27 02:11 :24 No 2mU/min at 2-40 mL/hr, IV Infusion, TITRATE, Starting on 11/26/21 at 0931, Until 11/26/21 at 2111, Routine [facility] FENTanyl PF (SUBLIMAZE (PF)) injection 100 mcg 2021-02 13:50: 58 11-27 12:40 :54 No 100ug 100 mcg, Slow IV Push, Q1HPRN, Starting on 11/26/21 at 0850, Until 11/27/21 at 0740, Routine, Pain (scale 4-6), Pain (scale 7-10) [facility] misoprostol (CYTOTEC) quarter-tab let 25 mcg 2021-02 13:45: 00 11-26 13:22 :00 No 25ug 25 mcg, Vaginal, ONCE, 1 dose, On 11/26/21 at 0845, Routine [facility] butalbital- acetaminoph en-caff (ESGIC) 50-325-40 mg tablet 1 tablet 2021-02 09:45: 00 11-26 08:57 :00 No 1{tbl} 1 tablet, Oral, ONCE NOW, 1 dose, On 11/26/21 at 0445, Routine [facility] magnesium sulfate in water for injection 20 gram/500 mL (4 %) IV infusion 2021-02 09:00: 00 Yes 2g/h 2 g/hr (50 mL/hr), IV Infusion, CONTINUOUS , Starting on 11/26/21 at 0400, Until Discontinu ed, Routine [facility] D5W 0.45% NaCl (1/2NS) IV infusion 1,000 mL 2021-02 0-08 09:00: 00 11-27 12:40 :54 No 1000mL at 75 mL/hr, 1,000 mL, IV Infusion, CONTINUOUS , Starting on 11/26/21 at 0400, Until 11/27/21 at 0740, [facility] promethazin e 6.25 mg/5 mL solution 9-21 00:00: 00 11-28 00:00 :00 No [id number] 12.5mg Take 10 mL by mouth every 4 (four) hours as needed for Nausea and Vomiting (N/V). [facility] promethazin e 6.25 mg/5 mL solution 8-30 00:00: 00 11-09 00:00 :00 No [id number] 12.5mg Take 10 mL by mouth every 4 (four) hours as needed for Nausea and Vomiting (N/V). [facility] promethazin e 6.25 mg/5 mL solution 8-11 00:00: 00 10-18 00:00 :00 No [id number] 12.5mg Take 10 mL by mouth every 4 (four) hours as needed for Nausea and Vomiting (N/V). [facility] promethazin e 6.25 mg/5 mL solution 6-23 00:00: 00 09-15 00:00 :00 No [id number] 12.5mg Take 10 mL by mouth every 4 (four) hours as needed for Nausea and Vomiting (N/V). [facility] proMETHazin e 25 mg tablet 5-29 00:00: 00 09-15 00:00 :00 No [id number] 25mg Take 1 tablet by mouth every 6 (six) hours as needed for Nausea and Vomiting (N/V). [facility] promethazin e 6.25 mg/5 mL solution 5-06 00:00: 00 06-29 00:00 :00 No [id number] 12.5mg Take 10 mL by mouth every 4 (four) hours as needed for Nausea and Vomiting (N/V). [facility] vit 33-iron-fol ic-dha (SELECT-OB + DHA) 29 mg iron-1 mg -250 mg combo pack 06-23 00:00: 00 07-17 00:00 :00 No [id number] 1{packe t} Take 1 Packet by mouth daily. [facility] proMETHazin e 25 mg suppository 06-22 00:00: 00 09-15 00:00 :00 No [id number] 25mg Insert 1 Suppositor y into rectum every 4 (four) hours as needed for Nausea and Vomiting (N/V). [facility] Immunizations Ordered Immunization Name Filled Immunization Name Date Status Comments Source HPV9 2022-12-25 00:00:00 Completed [facility] HPV9 2022-12-25 00:00:00 Completed [facility] HPV9 2022-12-25 00:00:00 Completed [facility] HPV9 2022-12-25 00:00:00 Completed [facility] HPV9 2022-12-25 00:00:00 Completed [facility] HPV9 2022-12-25 00:00:00 Completed [facility] HPV9 2022-12-25 00:00:00 Completed [facility] TDAP 2021-09-29 00:00:00 Completed [facility] TDAP 2021-09-29 00:00:00 Completed [facility] TDAP 2021-09-29 00:00:00 Completed [facility] TDAP 2021-09-29 00:00:00 Completed [facility] TDAP 2021-09-29 00:00:00 Completed [facility] TDAP 2021-09-29 00:00:00 Completed [facility] TDAP 2021-09-29 00:00:00 Completed [facility] TDAP 2021-09-29 00:00:00 Completed [facility] TDAP 2021-09-29 00:00:00 Completed [facility] TDAP 2021-09-29 00:00:00 Completed [facility] TDAP 2021-09-29 00:00:00 Completed [facility] TDAP 2021-09-29 00:00:00 Completed [facility] TDAP 2021-09-29 00:00:00 Completed [facility] TDAP 2021-09-29 00:00:00 Completed [facility] TDAP 2021-09-29 00:00:00 Completed [facility] TDAP 2021-09-29 00:00:00 Completed [facility] TDAP 2021-09-29 00:00:00 Completed [facility] TDAP 2021-09-29 00:00:00 Completed [facility] TDAP 2021-09-29 00:00:00 Completed [facility] TDAP 2021-09-29 00:00:00 Completed [facility] TDAP 2021-09-29 00:00:00 Completed [facility] TDAP 2021-09-29 00:00:00 Completed [facility] TDAP 2021-09-29 00:00:00 Completed [facility] TDAP 2021-09-29 00:00:00 Completed [facility] TDAP 2009-10-06 00:00:00 Completed HEPATITIS A [...] Trivalent 1997-11-23 00:00:00 Completed TDAP Unknown Completed [facility] TDAP Unknown Completed [facility] TDAP Unknown Completed [facility] TDAP Unknown Completed [facility] TDAP Unknown Completed [facility] TDAP Unknown Completed [facility] DTaP, Unspecified Formulation Unknown Completed [facility] HEPATITIS A Unknown Completed [facility] Hep B, Adol or Pedi Dosage Unknown Completed [facility] HIB 4 Dose Schedule Unknown Completed [facility] Haemophilus influenzae type b vaccine, conjugate unspecified formulation Unknown Completed [facility] HPV Unknown Completed [facility] Meningococcal Polysaccharide (groups A, C, Y and W-135) conjugate vaccine (MCV4P) Unknown Completed [facility] MMR Unknown Completed [facility] IPV Unknown Completed [facility] Poliovirus, Live, Oral, Trivalent Unknown Completed [facility] HPV9 Unknown Completed [facility] HEPATITIS A Unknown Completed [facility] Haemophilus influenzae type b vaccine, conjugate unspecified formulation Unknown Completed [facility] HPV Unknown Completed [facility] Meningococcal Polysaccharide (groups A, C, Y and W-135) conjugate vaccine (MCV4P) Unknown Completed [facility] HPV9 Unknown Completed [facility] TDAP Unknown Completed [facility] DTaP, Unspecified Formulation Unknown Completed [facility] Hep B, Adol or Pedi Dosage Unknown Completed [facility] HIB 4 Dose Schedule Unknown Completed [facility] MMR Unknown Completed [facility] IPV Unknown Completed [facility] Poliovirus, Live, Oral, Trivalent Unknown Completed [facility] TDAP Unknown Completed [facility] DTaP, Unspecified Formulation Unknown Completed [facility] HEPATITIS A Unknown Completed [facility] Hep B, Adol or Pedi Dosage Unknown Completed [facility] HIB 4 Dose Schedule Unknown Completed [facility] Haemophilus influenzae type b vaccine, conjugate unspecified formulation Unknown Completed [facility] HPV Unknown Completed [facility] Meningococcal Polysaccharide (groups A, C, Y and W-135) conjugate vaccine (MCV4P) Unknown Completed [facility] MMR Unknown Completed [facility] IPV Unknown Completed [facility] Poliovirus, Live, Oral, Trivalent Unknown Completed [facility] HPV9 Unknown Completed [facility] TDAP Unknown Completed [facility] DTaP, Unspecified Formulation Unknown Completed [facility] HEPATITIS A Unknown Completed [facility] Hep B, Adol or Pedi Dosage Unknown Completed [facility] HIB 4 Dose Schedule Unknown Completed [facility] Haemophilus influenzae type b vaccine, conjugate unspecified formulation Unknown Completed [facility] HPV Unknown Completed [facility] Meningococcal Polysaccharide (groups A, C, Y and W-135) conjugate vaccine (MCV4P) Unknown Completed [facility] MMR Unknown Completed [facility] IPV Unknown Completed [facility] Poliovirus, Live, Oral, Trivalent Unknown Completed [facility] HPV9 Unknown Completed [facility] TDAP Unknown Completed [facility] DTaP, Unspecified Formulation Unknown Completed [facility] HEPATITIS A Unknown Completed [facility] Hep B, Adol or Pedi Dosage Unknown Completed [facility] HIB 4 Dose Schedule Unknown Completed [facility] Haemophilus influenzae type b vaccine, conjugate unspecified formulation Unknown Completed [facility] HPV Unknown Completed [facility] Meningococcal Polysaccharide (groups A, C, Y and W-135) conjugate vaccine (MCV4P) Unknown Completed [facility] MMR Unknown Completed [facility] IPV Unknown Completed [facility] Poliovirus, Live, Oral, Trivalent Unknown Completed [facility] HPV9 Unknown Completed [facility] TDAP Unknown Completed [facility] DTaP, Unspecified Formulation Unknown Completed [facility] HEPATITIS A [facility] Hep B, Adol or Pedi Dosage Unknown Completed [facility] HIB 4 Dose Schedule Unknown Completed [facility] Haemophilus influenzae type b vaccine, conjugate unspecified formulation Unknown Completed [facility] HPV Unknown Completed [facility] Meningococcal Polysaccharide (groups A, C, Y and W-135) conjugate vaccine (MCV4P) Unknown Completed [facility] MMR Unknown Completed [facility] IPV Unknown Completed [facility] Poliovirus, Live, Oral, Trivalent Unknown Completed [facility] HPV9 Unknown Completed [facility] HEPATITIS A Unknown Completed [facility] Haemophilus influenzae type b vaccine, conjugate unspecified formulation Unknown Completed [facility] HPV Unknown Completed [facility] Meningococcal Polysaccharide (groups A, C, Y and W-135) conjugate vaccine (MCV4P) Unknown Completed [facility] HPV9 Unknown Completed [facility] TDAP Unknown Completed [facility] DTaP, Unspecified Formulation Unknown Completed [facility] Hep B, Adol or Pedi Dosage Unknown Completed [facility] HIB 4 Dose Schedule Unknown Completed [facility] MMR Unknown Completed [facility] IPV Unknown Completed [facility] Poliovirus, Live, Oral, Trivalent Unknown Completed [facility] TDAP Unknown Completed [facility] DTaP, Unspecified Formulation Unknown Completed [facility] HEPATITIS A Unknown Completed [facility] Hep B, Adol or Pedi Dosage Unknown Completed [facility] HIB 4 Dose Schedule Unknown Completed [facility] Haemophilus influenzae type b vaccine, conjugate unspecified formulation Unknown Completed [facility] HPV Unknown Completed [facility] Meningococcal Polysaccharide (groups A, C, Y and W-135) conjugate vaccine (MCV4P) Unknown Completed [facility] MMR Unknown Completed [facility] IPV Unknown Completed [facility] Poliovirus, Live, Oral, Trivalent Unknown Completed [facility] HPV9 Unknown Completed [facility] TDAP Unknown Completed [facility] DTaP, Unspecified Formulation Unknown Completed [facility] HEPATITIS A Unknown Completed [facility] Hep B, Adol or Pedi Dosage Unknown Completed [facility] HIB 4 Dose Schedule Unknown Completed [facility] Haemophilus influenzae type b vaccine, conjugate unspecified formulation Unknown Completed [facility] HPV Unknown Completed [facility] Meningococcal Polysaccharide (groups A, C, Y and W-135) conjugate vaccine (MCV4P) Unknown Completed [facility] MMR Unknown Completed [facility] IPV Unknown Completed [facility] Poliovirus, Live, Oral, Trivalent Unknown Completed [facility] HPV9 Unknown Completed [facility] TDAP Unknown Completed [facility] DTaP, Unspecified Formulation Unknown Completed [facility] HEPATITIS A Unknown Com[facility] Hep B, Adol or Pedi Dosage Unknown Completed [facility] HIB 4 Dose Schedule Unknown Completed [facility] Haemophilus influenzae type b vaccine, conjugate unspecified formulation Unknown Completed [facility] HPV Unknown Completed [facility] Meningococcal Polysaccharide (groups A, C, Y and W-135) conjugate vaccine (MCV4P) Unknown Completed [facility] MMR Unknown Completed [facility] IPV Unknown Completed [facility] Poliovirus, Live, Oral, Trivalent Unknown Completed [facility] HPV9 Unknown Completed [facility] TDAP Unknown Completed [facility] DTaP, Unspecified Formulation Unknown Completed [facility] HEPATITIS A Unknown Completed [facility] Hep B, Adol or Pedi Dosage Unknown Completed [facility] HIB 4 Dose Schedule Unknown Completed [facility] Haemophilus influenzae type b vaccine, conjugate unspecified formulation Unknown Completed [facility] HPV Unknown Completed [facility] Meningococcal Polysaccharide (groups A, C, Y and W-135) conjugate vaccine (MCV4P) Unknown Completed [facility] MMR Unknown Completed [facility] IPV Unknown Completed [facility] Poliovirus, Live, Oral, Trivalent Unknown Completed [facility] HPV9 Unknown Completed [facility] HEPATITIS A Unknown Completed [facility] Haemophilus influenzae type b vaccine, conjugate unspecified formulation Unknown Completed [facility] HPV Unknown Completed [facility] Meningococcal Polysaccharide (groups A, C, Y and W-135) conjugate vaccine (MCV4P) Unknown Completed [facility] HPV9 Unknown Completed [facility] TDAP Unknown Completed [facility] DTaP, Unspecified Formulation Unknown Completed [facility] Hep B, Adol or Pedi Dosage Unknown Completed [facility] HIB 4 Dose Schedule Unknown Completed [facility] MMR Unknown Completed [facility] IPV Unknown Completed [facility] Poliovirus, Live, Oral, Trivalent Unknown Completed [facility] TDAP Unknown Completed [facility] DTaP, Unspecified Formulation Unknown Completed [facility] HEPATITIS A Unknown Completed [facility] Hep B, Adol or Pedi Dosage Unknown Completed [facility] HIB 4 Dose Schedule Unknown Completed [facility] Haemophilus influenzae type b vaccine, conjugate unspecified formulation Unknown Completed [facility] HPV Unknown Completed [facility] Meningococcal Polysaccharide (groups A, C, Y and W-135) conjugate vaccine (MCV4P) Unknown Completed [facility] MMR Unknown Completed [facility] IPV Unknown Completed [facility] Poliovirus, Live, Oral, Trivalent Unknown Completed [facility] HPV9 Unknown Completed [facility] TDAP Unknown Completed [facility] DTaP, Unspecified Formulation Unknown Completed [facility] HEPATITIS A Unknown Completed [facility] Hep B, Adol or Pedi Dosage Unknown Completed [facility] HIB 4 Dose Schedule Unknown Completed [facility] Haemophilus influenzae type b vaccine, conjugate unspecified formulation Unknown Completed [facility] HPV Unknown Completed [facility] Meningococcal Polysaccharide (groups A, C, Y and W-135) conjugate vaccine (MCV4P) Unknown Completed [facility] MMR Unknown Completed [facility] IPV Unknown Completed [facility] Poliovirus, Live, Oral, Trivalent Unknown Completed [facility] HPV9 Unknown Completed [facility] TDAP Unknown Completed [facility] DTaP, Unspecified Formulation Unknown Completed [facility] HEPATITIS A Unknown Completed [facility] Hep B, Adol or Pedi Dosage Unknown Completed [facility] HIB 4 Dose Schedule Unknown Completed [facility] Haemophilus influenzae type b vaccine, conjugate unspecified formulation Unknown Completed [facility] HPV Unknown Completed [facility] Meningococcal Polysaccharide (groups A, C, Y and W-135) conjugate vaccine (MCV4P) Unknown Completed [facility] MMR Unknown Completed [facility] IPV Unknown Completed [facility] Poliovirus, Live, Oral, Trivalent Unknown Completed [facility] HPV9 Unknown Completed [facility] TDAP Unknown Completed [facility] DTaP, Unspecified Formulation Unknown Completed [facility] HEPATITIS A Unknown Completed [facility] Hep B, Adol or Pedi Dosage Unknown Completed [facility] HIB 4 Dose Schedule Unknown Completed [facility] Haemophilus influenzae type b vaccine, conjugate unspecified formulation Unknown Completed [facility] HPV Unknown Completed [facility] Meningococcal Polysaccharide (groups A, C, Y and W-135) conjugate vaccine (MCV4P) Unknown Completed [facility] MMR Unknown Completed [facility] IPV Unknown Completed [facility] Poliovirus, Live, Oral, Trivalent Unknown Completed [facility] HPV9 Unknown Completed [facility] HEPATITIS A Unknown Completed [facility] Haemophilus influenzae type b vaccine, conjugate unspecified formulation Unknown Completed [facility] HPV Unknown Completed [facility] Meningococcal Polysaccharide (groups A, C, Y and W-135) conjugate vaccine (MCV4P) Unknown Completed [facility] HPV9 Unknown Completed [facility] TDAP Unknown Completed [facility] DTaP, Unspecified Formulation Unknown Completed [facility] HEPATITIS A Unknown Completed [facility] Hep B, Adol or Pedi Dosage Unknown Completed [facility] HIB 4 Dose Schedule Unknown Completed [facility] Haemophilus influenzae type b vaccine, conjugate unspecified formulation Unknown Completed [facility] HPV Unknown Completed [facility] Meningococcal Polysaccharide (groups A, C, Y and W-135) conjugate vaccine (MCV4P) Unknown Completed [facility] MMR Unknown Completed [facility] IPV Unknown Completed [facility] Poliovirus, Live, Oral, Trivalent Unknown Completed [facility] HPV9 Unknown Completed [facility] TDAP Unknown Completed [facility] DTaP, Unspecified Formulation Unknown Completed [facility] HEPATITIS A Unknown Completed [facility] Hep B, Adol or Pedi Dosage Unknown Completed [facility] HIB 4 Dose Schedule Unknown Completed [facility] Haemophilus influenzae type b vaccine, conjugate unspecified formulation Unknown Completed [facility] HPV Unknown Completed [facility] Meningococcal Polysaccharide (groups A, C, Y and W-135) conjugate vaccine (MCV4P) Unknown Completed [facility] MMR Unknown Completed [facility] IPV Unknown Completed [facility] Poliovirus, Live, Oral, Trivalent Unknown Completed [facility] HPV9 Unknown Completed [facility] TDAP Unknown Completed [facility] DTaP, Unspecified Formulation Unknown Completed [facility] HEPATITIS A Unknown Completed [facility] Hep B, Adol or Pedi Dosage Unknown Completed [facility] HIB 4 Dose Schedule Unknown Completed [facility] Haemophilus influenzae type b vaccine, conjugate unspecified formulation Unknown Completed [facility] HPV Unknown Completed [facility] Meningococcal Polysaccharide (groups A, C, Y and W-135) conjugate vaccine (MCV4P) Unknown Completed [facility] MMR Unknown Completed [facility] IPV Unknown Completed [facility] Poliovirus, Live, Oral, Trivalent Unknown Completed [facility] HPV9 Unknown Completed [facility] TDAP Unknown Completed [facility] DTaP, Unspecified Formulation Unknown Completed [facility] HEPATITIS A Unknown Completed [facility] Hep B, Adol or Pedi Dosage Unknown Completed [facility] HIB 4 Dose Schedule Unknown Completed [facility] Haemophilus influenzae type b vaccine, conjugate unspecified formulation Unknown Completed [facility] HPV Unknown Completed [facility] Meningococcal Polysaccharide (groups A, C, Y and W-135) conjugate vaccine (MCV4P) Unknown Completed [facility] MMR Unknown Completed [facility] IPV Unknown Completed [facility] Poliovirus, Live, Oral, Trivalent Unknown Completed [facility] HPV9 Unknown Completed [facility] TDAP Unknown Completed [facility] DTaP, Unspecified Formulation Unknown Completed [facility] Hep B, Adol or Pedi Dosage Unknown Completed [facility] HIB 4 Dose Schedule Unknown Completed [facility] MMR Unknown Completed [facility] IPV Unknown Completed [facility] Poliovirus, Live, Oral, Trivalent Unknown Completed [facility] TDAP Unknown Completed [facility] DTaP, Unspecified Formulation Unknown Completed [facility] HEPATITIS A Unknown Completed [facility] Hep B, Adol or Pedi Dosage Unknown Completed [facility] HIB 4 Dose Schedule Unknown Completed [facility] Haemophilus influenzae type b vaccine, conjugate unspecified formulation Unknown Completed [facility] HPV Unknown Completed [facility] Meningococcal Polysaccharide (groups A, C, Y and W-135) conjugate vaccine (MCV4P) Unknown Completed [facility] MMR Unknown Completed [facility] IPV Unknown Completed [facility] Poliovirus, Live, Oral, Trivalent Unknown Completed [facility] HPV9 Unknown Completed [facility] TDAP Unknown Completed [facility] DTaP, Unspecified Formulation Unknown Completed [facility] HEPATITIS A Unknown Completed [facility] Hep B, Adol or Pedi Dosage Unknown Completed [facility] HIB 4 Dose Schedule Unknown Completed [facility] Haemophilus influenzae type b vaccine, conjugate unspecified formulation Unknown Completed [facility] HPV Unknown Completed [facility] Meningococcal Polysaccharide (groups A, C, Y and W-135) conjugate vaccine (MCV4P) Unknown Completed [facility] MMR Unknown Completed [facility] IPV Unknown Completed [facility] Poliovirus, Live, Oral, Trivalent Unknown Completed [facility] HPV9 Unknown Completed [facility] TDAP Unknown Completed [facility] DTaP, Unspecified Formulation Unknown Completed [facility] HEPATITIS A Unknown Completed [facility] Hep B, Adol or Pedi Dosage Unknown Completed [facility] HIB 4 Dose Schedule Unknown Completed [facility] Haemophilus influenzae type b vaccine, conjugate unspecified formulation Unknown Completed [facility] HPV Unknown Completed [facility] Meningococcal Polysaccharide (groups A, C, Y and W-135) conjugate vaccine (MCV4P) Unknown Completed [facility] MMR Unknown Completed [facility] IPV Unknown Completed [facility] Poliovirus, Live, Oral, Trivalent Unknown Completed [facility] HPV9 Unknown Completed [facility] TDAP Unknown Completed [facility] DTaP, Unspecified Formulation Unknown Completed [facility] HEPATITIS A Unknown Completed [facility] Hep B, Adol or Pedi Dosage Unknown Completed [facility] HIB 4 Dose Schedule Unknown Completed [facility] Haemophilus influenzae type b vaccine, conjugate unspecified formulation Unknown Completed [facility] HPV Unknown Completed [facility] Meningococcal Polysaccharide (groups A, C, Y and W-135) conjugate vaccine (MCV4P) Unknown Completed [facility] MMR Unknown Completed [facility] IPV Unknown Completed [facility] Poliovirus, Live, Oral, Trivalent Unknown Completed [facility] HPV9 Unknown Completed [facility] TDAP Unknown Completed [facility] DTaP, Unspecified Formulation Unknown Completed [facility] HEPATITIS A Unknown Completed [facility] Hep B, Adol or Pedi Dosage Unknown Completed [facility] HIB 4 Dose Schedule Unknown Completed [facility] Haemophilus influenzae type b vaccine, conjugate unspecified formulation Unknown Completed [facility] HPV Unknown Completed [facility] Meningococcal Polysaccharide (groups A, C, Y and W-135) conjugate vaccine (MCV4P) Unknown Completed [facility] MMR Unknown Completed [facility] IPV Unknown Completed [facility] Poliovirus, Live, Oral, Trivalent Unknown Completed [facility] HPV9 Unknown Completed [facility] TDAP Unknown Completed [facility] DTaP, Unspecified Formulation Unknown Completed [facility] HEPATITIS A Unknown Completed [facility] Hep B, Adol or Pedi Dosage Unknown Completed [facility] HIB 4 Dose Schedule Unknown Completed [facility] Haemophilus influenzae type b vaccine, conjugate unspecified formulation Unknown Completed [facility] HPV Unknown Completed [facility] Meningococcal Polysaccharide (groups A, C, Y and W-135) conjugate vaccine (MCV4P) Unknown Completed [facility] MMR Unknown Completed [facility] IPV Unknown Completed [facility] Poliovirus, Live, Oral, Trivalent Unknown Completed [facility] HPV9 Unknown Completed [facility] TDAP Unknown Completed [facility] DTaP, Unspecified Formulation Unknown Completed [facility] HEPATITIS A [facility] Hep B, Adol or Pedi Dosage Unknown Completed [facility] HIB 4 Dose Schedule Unknown Completed [facility] Haemophilus influenzae type b vaccine, conjugate unspecified formulation Unknown Completed [facility] HPV Unknown Completed [facility] Meningococcal Polysaccharide (groups A, C, Y and W-135) conjugate vaccine (MCV4P) Unknown Completed [facility] MMR Unknown Completed [facility] IPV Unknown Completed [facility] Poliovirus, Live, Oral, Trivalent Unknown Completed [facility] HPV9 Unknown Completed [facility] TDAP Unknown Completed [facility] DTaP, Unspecified Formulation Unknown Completed [facility] HEPATITIS A Unknown Completed [facility] Hep B, Adol or Pedi Dosage Unknown Completed [facility] HIB 4 Dose Schedule Unknown Completed [facility] Haemophilus influenzae type b vaccine, conjugate unspecified formulation Unknown Completed [facility] HPV Unknown Completed [facility] Meningococcal Polysaccharide (groups A, C, Y and W-135) conjugate vaccine (MCV4P) Unknown Completed [facility] MMR Unknown Completed [facility] IPV Unknown Completed [facility] Poliovirus, Live, Oral, Trivalent Unknown Completed [facility] HPV9 Unknown Completed [facility] HEPATITIS A Unknown Completed [facility] Haemophilus influenzae type b vaccine, conjugate unspecified formulation Unknown Completed [facility] HPV Unknown Completed [facility] Meningococcal Polysaccharide (groups A, C, Y and W-135) conjugate vaccine (MCV4P) Unknown Completed [facility] HPV9 Unknown Completed [facility] TDAP Unknown Completed [facility] DTaP, Unspecified Formulation Unknown Completed [facility] Hep B, Adol or Pedi Dosage Unknown Completed [facility] HIB 4 Dose Schedule Unknown Completed [facility] MMR Unknown Completed [facility] IPV Unknown Completed [facility] Poliovirus, Live, Oral, Trivalent Unknown Completed [facility] HEPATITIS A Unknown Completed [facility] Haemophilus influenzae type b vaccine, conjugate unspecified formulation Unknown Completed [facility] HPV Unknown Completed [facility] Meningococcal Polysaccharide (groups A, C, Y and W-135) conjugate vaccine (MCV4P) Unknown Completed [facility] HPV9 Unknown Completed [facility] TDAP Unknown Completed [facility] DTaP, Unspecified Formulation Unknown Completed [facility] Hep B, Adol or Pedi Dosage Unknown Completed [facility] HIB 4 Dose Schedule Unknown Completed [facility] MMR Unknown Completed [facility] IPV Unknown Completed [facility] Poliovirus, Live, Oral, Trivalent Unknown Completed [facility] HEPATITIS A Unknown Completed [facility] Haemophilus influenzae type b vaccine, conjugate unspecified formulation Unknown Completed [facility] HPV Unknown Completed [facility] Meningococcal Polysaccharide (groups A, C, Y and W-135) conjugate vaccine (MCV4P) Unknown Completed [facility] HPV9 Unknown Completed [facility] TDAP Unknown Completed [facility] DTaP, Unspecified Formulation Unknown Completed [facility] Hep B, Adol or Pedi Dosage Unknown Completed [facility] HIB 4 Dose Schedule Unknown Completed [facility] MMR Unknown Completed [facility] IPV Unknown Completed [facility] Poliovirus, Live, Oral, Trivalent Unknown Completed [facility] TDAP Unknown Completed [facility] DTaP, Unspecified Formulation Unknown Completed [facility] HEPATITIS A Unknown Completed [facility] Hep B, Adol or Pedi Dosage Unknown Completed [facility] HIB 4 Dose Schedule Unknown Completed [facility] Haemophilus influenzae type b vaccine, conjugate unspecified formulation Unknown Completed [facility] HPV Unknown Completed [facility] Meningococcal Polysaccharide (groups A, C, Y and W-135) conjugate vaccine (MCV4P) Unknown Completed [facility] MMR Unknown Completed [facility] IPV Unknown Completed [facility] Poliovirus, Live, Oral, Trivalent Unknown Completed [facility] HPV9 Unknown Completed [facility] TDAP Unknown Completed [facility] DTaP, Unspecified Formulation Unknown Completed [facility] HEPATITIS A Unknown Com[facility] Hep B, Adol or Pedi Dosage Unknown Completed [facility] HIB 4 Dose Schedule Unknown Completed [facility] Haemophilus influenzae type b vaccine, conjugate unspecified formulation Unknown Completed [facility] HPV Unknown Completed [facility] Meningococcal Polysaccharide (groups A, C, Y and W-135) conjugate vaccine (MCV4P) Unknown Completed [facility] MMR Unknown Completed [facility] IPV Unknown Completed [facility] Poliovirus, Live, Oral, Trivalent Unknown Completed [facility] HPV9 Unknown Completed [facility] TDAP Unknown Completed [facility] DTaP, Unspecified Formulation Unknown Completed [facility] HEPATITIS A Unknown Completed [facility] Hep B, Adol or Pedi Dosage Unknown Completed [facility] HIB 4 Dose Schedule Unknown Completed [facility] Haemophilus influenzae type b vaccine, conjugate unspecified formulation Unknown Completed [facility] HPV Unknown Completed [facility] Meningococcal Polysaccharide (groups A, C, Y and W-135) conjugate vaccine (MCV4P) Unknown Completed [facility] MMR Unknown Completed [facility] IPV Unknown Completed [facility] Poliovirus, Live, Oral, Trivalent Unknown Completed [facility] HPV9 Unknown Completed [facility] TDAP Unknown Completed [facility] DTaP, Unspecified Formulation Unknown Completed [facility] HEPATITIS A Unknown Completed [facility] Hep B, Adol or Pedi Dosage Unknown Completed [facility] HIB 4 Dose Schedule Unknown Completed [facility] Haemophilus influenzae type b vaccine, conjugate unspecified formulation Unknown Completed [facility] HPV Unknown Completed [facility] Meningococcal Polysaccharide (groups A, C, Y and W-135) conjugate vaccine (MCV4P) Unknown Completed [facility] MMR Unknown Completed [facility] IPV Unknown Completed [facility] Poliovirus, Live, Oral, Trivalent Unknown Completed [facility] HPV9 Unknown Completed [facility] TDAP Unknown Completed [facility] DTaP, Unspecified Formulation Unknown Completed [facility] HEPATITIS A Unknown Completed [facility] Hep B, Adol or Pedi Dosage Unknown Completed [facility] HIB 4 Dose Schedule Unknown Completed [facility] Haemophilus influenzae type b vaccine, conjugate unspecified formulation Unknown Completed [facility] HPV Unknown Completed [facility] Meningococcal Polysaccharide (groups A, C, Y and W-135) conjugate vaccine (MCV4P) Unknown Completed [facility] MMR Unknown Completed [facility] IPV Unknown Completed [facility] Poliovirus, Live, Oral, Trivalent Unknown Completed [facility] HPV9 Unknown Completed [facility] Vital Signs Vital Name Observation Time Observation Value Comments S ource Systolic blood pressure 2023-12-24 17:35:00 118 mm[Hg] [facility] Diastolic blood pressure 2023-12-24 17:35:00 80 mm[Hg] [facility] Heart rate 2023-12-24 17:35:00 90 /min [facility] Respiratory rate 2023-12-24 17:35:00 15 /min [facility] Oxygen saturation in Arterial blood by Pulse oximetry 2023-12-24 17:35:00 96 /min [facility] Body temperature 2023-12-24 17:05:00 36 [facility] Body height 2023-12-24 16:37:00 165.1 cm [facility] Body weight 2023-12-24 16:37:00 122.154 kg [facility] BMI 2023-12-24 16:37:00 44.81 kg/m2 [facility] Systolic blood pressure 2023-12-24 17:05:00 100 mm[Hg] [facility] Diastolic blood pressure 2023-12-24 17:05:00 56 mm[Hg] [facility] Heart rate 2023-12-24 17:05:00 89 /min [facility] Body temperature 2023-12-24 17:05:00 36 [facility] Respiratory rate 2023-12-24 17:05:00 16 /min [facility] Oxygen saturation in Arterial blood by Pulse oximetry 2023-12-24 17:05:00 94 /min [facility] Body height 2023-12-24 16:37:00 165.1 cm [facility] Body weight 2023-12-24 16:37:00 122.154 kg [facility] BMI 2023-12-24 16:37:00 44.81 kg/m2 [facility] Systolic blood pressure 2023-11-27 19:10:00 111 mm[Hg] [facility] Diastolic blood pressure 2023-11-27 19:10:00 76 mm[Hg] [facility] Heart rate 2023-11-27 19:10:00 111 /min [facility] Respiratory rate 2023-11-27 19:10:00 18 /min [facility] Body height 2023-11-27 19:10:00 165.1 cm [facility] Body weight 2023-11-27 19:10:00 124.286 kg [facility] BMI 2023-11-27 19:10:00 45.60 kg/m2 [facility] Systolic blood pressure 2023-11-26 20:40:00 112 mm[Hg] [facility] Diastolic blood pressure 2023-11-26 20:40:00 74 mm[Hg] [facility] Heart rate 2023-11-26 20:40:00 103 /min [facility] Body temperature 2023-11-26 20:40:00 36.39 [facility] Body height 2023-11-26 20:40:00 165.1 cm [facility] Body weight 2023-11-26 20:40:00 123.923 kg [facility] BMI 2023-11-26 20:40:00 45.46 kg/m2 [facility] Systolic blood pressure 2023-11-22 18:07:00 134 mm[Hg] [facility] Diastolic blood pressure 2023-11-22 18:07:00 89 mm[Hg] [facility] Heart rate 2023-11-22 18:07:00 126 /min [facility] Body temperature 2023-11-22 18:07:00 36.28 [facility] Respiratory rate 2023-11-22 18:07:00 18 /min [facility] Body height 2023-11-22 18:07:00 165.1 cm [facility] Body weight 2023-11-22 18:07:00 125.102 kg [facility] BMI 2023-11-22 18:07:00 45.90 kg/m2 [facility] Oxygen saturation in Arterial blood by Pulse oximetry 2023-11-22 18:07:00 98 /min [facility] Systolic blood pressure 2023-11-19 14:38:00 127 mm[Hg] [facility] Diastolic blood pressure 2023-11-19 14:38:00 86 mm[Hg] [facility] Heart rate 2023-11-19 14:38:00 107 /min [facility] Body temperature 2023-11-19 14:38:00 36.33 [facility] Respiratory rate 2023-11-19 14:38:00 18 /min [facility] Body height 2023-11-19 14:38:00 165.1 cm [facility] Body weight 2023-11-19 14:38:00 123.741 kg [facility] BMI 2023-11-19 14:38:00 45.40 kg/m2 [facility] Oxygen saturation in Arterial blood by Pulse oximetry 2023-11-19 14:38:00 98 /min [facility] Systolic blood pressure 2023-11-18 16:30:00 156 mm[Hg] [facility] Diastolic blood pressure 2023-11-18 16:30:00 113 mm[Hg] [facility] Heart rate 2023-11-18 16:30:00 88 /min [facility] Respiratory rate 2023-11-18 16:30:00 18 /min [facility] Oxygen saturation in Arterial blood by Pulse oximetry 2023-11-18 16:30:00 98 /min [facility] Body temperature 2023-11-18 10:28:00 36.72 [facility] Body height 2023-11-18 10:27:00 165.1 cm [facility] Body weight 2023-11-18 10:27:00 122.471 kg [facility] BMI 2023-11-18 10:27:00 44.93 kg/m2 [facility] Systolic blood pressure 2023-11-08 20:00:00 123 mm[Hg] [facility] Diastolic blood pressure 2023-11-08 20:00:00 91 mm[Hg] [facility] Respiratory rate 2023-11-08 20:00:00 17 /min [facility] Heart rate 2023-11-08 19:00:00 75 /min [facility] Oxygen saturation in Arterial blood by Pulse oximetry 2023-11-08 19:00:00 100 /min [facility] Body temperature 2023-11-08 17:00:00 36.83 [facility] Body height 2023-11-08 15:16:00 165.1 cm [facility] Body weight 2023-11-08 15:16:00 122.471 kg [facility] BMI 2023-11-08 15:16:00 44.93 kg/m2 [facility] Systolic blood pressure 2023-08-06 19:07:00 135 mm[Hg] [facility] Diastolic blood pressure 2023-08-06 19:07:00 93 mm[Hg] [facility] Heart rate 2023-08-06 19:04:00 81 /min [facility] Body temperature 2023-08-06 19:04:00 36.11 [facility] Respiratory rate 2023-08-06 19:04:00 18 /min [facility] Body height 2023-08-06 19:04:00 165.1 cm [facility] Body weight 2023-08-06 19:04:00 140.66 kg [facility] BMI 2023-08-06 19:04:00 51.60 kg/m2 [facility] Oxygen saturation in Arterial blood by Pulse oximetry 2023-08-06 19:04:00 100 /min [facility] Systolic blood pressure 2023-06-21 16:24:00 156 mm[Hg] [facility] Diastolic blood pressure 2023-06-21 16:24:00 98 mm[Hg] [facility] Heart rate 2023-06-21 16:24:00 94 /min [facility] Body temperature 2023-06-21 16:24:00 37.22 [facility] Respiratory rate 2023-06-21 16:24:00 16 /min [facility] Body height 2023-06-21 16:24:00 165.1 cm [facility] Body weight 2023-06-21 16:24:00 127.007 kg [facility] BMI 2023-06-21 16:24:00 46.59 kg/m2 [facility] Oxygen saturation in Arterial blood by Pulse oximetry 2023-06-21 16:24:00 100 /min [facility] Systolic blood pressure 2023-01-24 20:58:00 132 mm[Hg] [facility] Diastolic blood pressure 2023-01-24 20:58:00 96 mm[Hg] [facility] Heart rate 2023-01-24 20:56:00 95 /min [facility] Body temperature 2023-01-24 20:56:00 36.67 [facility] Respiratory rate 2023-01-24 20:56:00 18 /min [facility] Body height 2023-01-24 20:56:00 165.1 cm [facility] Body weight 2023-01-24 20:56:00 138.937 kg [facility] BMI 2023-01-24 20:56:00 50.97 kg/m2 [facility] Oxygen saturation in Arterial blood by Pulse oximetry 2023-01-24 20:56:00 100 /min [facility] Systolic blood pressure 2022-12-25 19:43:00 131 mm[Hg] [facility] Diastolic blood pressure 2022-12-25 19:43:00 86 mm[Hg] [facility] Heart rate 2022-12-25 19:43:00 72 /min [facility] Body temperature 2022-12-25 19:43:00 36.28 [facility] Respiratory rate 2022-12-25 19:43:00 16 /min [facility] Body height 2022-12-25 19:43:00 [facility].1 [facility] 2022-12-25 19:43:00 138.347 kg [facility] BMI 2022-12-25 19:43:00 50.75 kg/m2 [facility] Oxygen saturation in Arterial blood by Pulse oximetry 2022-12-25 19:43:00 99 /min [facility] Systolic blood pressure 2022-01-20 20:03:00 135 mm[Hg] [facility] Diastolic blood pressure 2022-01-20 20:03:00 87 mm[Hg] [facility] Heart rate 2022-01-20 20:03:00 87 /min [facility] Body temperature 2022-01-20 20:03:00 36.56 [facility] Respiratory rate 2022-01-20 20:03:00 17 /min [facility] Body height 2022-01-20 20:03:00 165.1 cm [facility] Body weight 2022-01-20 20:03:00 118.706 kg [facility] BMI 2022-01-20 20:03:00 43.55 kg/m2 [facility] Systolic blood pressure 2021-12-22 13:14:00 125 mm[Hg] [facility] Diastolic blood pressure 2021-12-22 13:14:00 86 mm[Hg] [facility] Heart rate 2021-12-22 13:14:00 96 /min [facility] Body temperature 2021-12-22 13:14:00 36.61 [facility] Respiratory rate 2021-12-22 13:14:00 20 /min [facility] Body height 2021-12-22 13:14:00 165.1 cm [facility] Body weight 2021-12-22 13:14:00 108.41 kg [facility] BMI 2021-12-22 13:14:00 39.77 kg/m2 [facility] Systolic blood pressure 2021-11-29 12:00:00 142 mm[Hg] [facility] Diastolic blood pressure 2021-11-29 12:00:00 87 mm[Hg] [facility] Heart rate 2021-11-29 12:00:00 79 /min [facility] Body temperature 2021-11-29 12:00:00 36.72 [facility] Respiratory rate 2021-11-29 12:00:00 18 /min [facility] Oxygen saturation in Arterial blood by Pulse oximetry 2021-11-29 12:00:00 100 /min [facility] Body height 2021-11-26 08:32:00 165.1 cm [facility] Body weight 2021-11-26 08:32:00 114.034 kg [facility] BMI 2021-11-26 08:32:00 41.84 kg/m2 [facility] Systolic blood pressure 2021-11-23 14:45:00 133 mm[Hg] [facility] Diastolic blood pressure 2021-11-23 14:45:00 102 mm[Hg] [facility] Heart rate 2021-11-23 14:42:00 77 /min [facility] Body temperature 2021-11-23 14:42:00 36.33 [facility] Respiratory rate 2021-11-23 14:42:00 18 /min [facility] Body height 2021-11-23 14:42:00 165.1 cm [facility] Body weight 2021-11-23 14:42:00 114.17 kg [facility] BMI 2021-11-23 14:42:00 41.89 kg/m2 [facility] Systolic blood pressure 2021-11-11 15:03:00 120 mm[Hg] [facility] Diastolic blood pressure 2021-11-11 15:03:00 82 mm[Hg] [facility] Heart rate 2021-11-11 14:58:00 105 /min [facility] Body temperature 2021-11-11 14:57:00 36.33 [facility] Respiratory rate 2021-11-11 14:57:00 18 /min [facility] Body height 2021-11-11 14:57:00 165.1 cm [facility] Body weight 2021-11-11 14:57:00 113.541 kg [facility] BMI 2021-11-11 14:57:00 41.65 kg/m2 [facility] Systolic blood pressure 2021-10-27 23:55:00 129 mm[Hg] [facility] Diastolic blood pressure 2021-10-27 23:55:00 76 mm[Hg] [facility] Heart rate 2021-10-27 23:55:00 88 /min [facility] Oxygen saturation in Arterial blood by Pulse oximetry 2021-10-27 23:55:00 96 /min [facility] Body temperature 2021-10-27 23:14:00 37 [facility] Respiratory rate 2021-10-27 23:14:00 18 /min [facility] Body height 2021-10-27 22:26:00 165.1 cm [facility] Body weight 2021-10-27 22:26:00 111.131 kg [facility] BMI 2021-10-27 22:26:00 40.77 kg/m2 [facility] Systolic blood pressure 2021-10-27 18:08:00 140 mm[Hg] [facility] Diastolic blood pressure 2021-10-27 18:08:00 94 mm[Hg] [facility] Heart rate 2021-10-27 18:07:00 88 /min [facility] Body temperature 2021-10-27 18:07:00 35.61 [facility] Respiratory rate 2021-10-27 18:07:00 18 /min [facility] Body weight 2021-10-27 18:07:00 110.224 kg [facility] BMI 2021-10-27 18:07:00 40.44 kg/m2 [facility] Procedures Procedure Date / Time Performed Performing Clinician Source EGD (ENDO) 2023-12-24 17:08:17 Jess Munson [facility] EGD (ENDO) 2023-12-24 17:08:17 Jess Munson [facility] SURGICAL PATHOLOGY EXAM 2023-12-24 16:57:00 Huseyin Yisel [facility] ESOPHAGOGASTRODUODENOSCOPY 2023-12-24 16:36:00 Huseyin Yisel [facility] US OVARY TORSION 2023-11-18 16:33:50 Kelly Simms [facility] URINALYSIS 2023-11-18 15:15:00 Caro Bauer [facility] CT ABDOMEN PELVIS W CONTRAST 2023-11-18 13:38:59 Caro Bauer [facility] LIPASE 2023-11-18 11:10:00 Caro Bauer [facility] TEST, SERUM 2023-11-18 11:10:00 Caro Bauer [facility] COMP. METABOLIC PANEL (85947) 2023-11-18 11:10:00 Caro Bauer [facility] CBC WITH DIFF 2023-11-18 11:10:00 Caro Bauer [facility] COMP. METABOLIC PANEL (85259) 2023-11-08 16:43:00 Maame [facility] LIPASE 2023-11-08 16:01:00 Tiff Isabel [facility] CBC WITH DIFF 2023-11-08 16:01:00 Tiff Isabel [facility] URINALYSIS 2023-11-08 16:01:00 Maame Tiff [facility] POCT TEST 2023-11-08 16:01:00 Tiff Isabel [facility] ZINC, SERUM 2023-08-06 19:42:00 Rodrigoi-Franklin [facility] VITAMIN B6, PLASMA 2023-08-06 19:42:00 Jeimy [facility] FREE T4 2023-08-06 19:42:00 Jeimy [facility] THYROID STIMULATING HORMONE 2023-08-06 19:42:00 Jeimy [facility] COMP. METABOLIC PANEL ([id number]) 2023-08-06 19:42:00 Obi-Franklin [facility] CBC WITH DIFF 2023-08-06 19:42:00 [facility], [facility] GLYCOSYLATED HEMOGLOBIN (A1C) 2023-08-06 19:42:00 Ob-Franklin, [facility] VITAMIN D, 25-OH 2023-08-06 19:42:00 Obi-Franklin [facility] FREE T3 2023-08-06 19:42:00 Obi-Franklin, [facility] POCT TEST 2023-06-21 16:30:00 Bonita rTivedi [facility] URINALYSIS 2023-06-21 16:29:00 Bonita Trivedi [facility] INSURANCE CORRESPONDENCE 2023-01-15 06:01:00 Doctor Unassigned, [facility] INSURANCE CORRESPONDENCE 2023-01-06 06:01:00 Doctor Unassigned, [facility] GARDASIL 9 (HPV 9V) VACCINE 2022-12-25 20:04:37 Obi-Franklin, [facility] POCT TEST 2022-01-20 20:18:00 Jacinta Voss [facility] DME/SUPPLY JUSTIFICATION 2022-01-03 06:01:00 Doctor Unassigned, [facility] CBC WITH DIFF 2021-11-28 08:48:00 Adum, Vanessa Cowan [facility] CENTRAL NEURAXIAL BLOCK 2021-11-26 20:52:15 Wilver Owens [facility] HB ABO GROUPING 2021-11-26 09:30:00 Adum, Vanessa [facility] LACTATE DEHYDROGENASE 2021-11-26 09:29:00 Adum, Vanessa [facility]an [facility] URIC ACID 2021-11-26 09:29:00 Adum, Vanessa [facility] COMP. METABOLIC PANEL ([id number]) 2021-11-26 09:29:00 Adum, Vanessa Cowan [facility] URINE DRUG (IMMUNOASSAY) - COMPREHENSIVE DRUG SCREEN 2021-11-26 09:29:00 Adum, Vanessa [facility] CBC WITH DIFF 2021-11-26 09:29:00 Adum, Vanessa [facility] URINALYSIS 2021-11-26 09:29:00 Adum, Vanessa [facility] HEPATITIS B SURFACE ANTIGEN 2021-11-26 09:29:00 Adum, Vanessa [facility]an [facility] ADC OR THOMPSON ONLY - RPR 2021-11-26 09:29:00 Adum, Vanessa [facility] HIV 1/2 AG-AB WITH REFLEX 2021-11-26 09:29:00 Adum, Vanessa Cowan [facility] CONSENT/REFUSAL FOR DIAGNOSI S AND TREATMENT 2021-11-26 08:08:59 Doctor Unassigned, [facility] POCT URINALYSIS 2021-11-23 14:56:00 Rodrick Pete [facility] POCT URINALYSIS 2021-11-11 14:58:00 Rodrick Pete [facility] CONSENT/REFUSAL FOR DIAGNOSI S AND TREATMENT 2021-10-27 22:13:12 Doctor Unassigned, [facility] POCT URINALYSIS 2021-10-27 18:21:00 Rodrick Pete [facility] Encounters Start Date/Time End Date/Time Encounter Type Admission Type Attending [facility] Care Facility Care Department Encounter ID Source 2023-12-25 00:00:00 2023-12-27 05:31:52 Refill Jess Munson [facility] PROFESSIO [facility] 1.2.840.114 350.1.13.10 4.2.7.2.686 [id number] [facility] 2023-12-25 00:00:00 2023-12-25 12:23:25 Refill Yann Nayak [facility] ([facility]) 1.2.840.114 350.1.13.10 4.2.7.2.686 [id number] [facility] 2023-12-24 00:00:00 2023-12-24 16:00:22 Patient Secure Msg Yisel Hart [facility] ([facility]) 1..114 350.1.13.10 4.2.7.2.686 [id number] [facility] 2023-12-24 09:50:00 2023-12-24 11:47:00 Outpatient R YISEL HART [facility] GIE [id number] [facility] 2023-12-24 09:50:00 2023-12-24 11:47:00 Hospital Encounter Yisel Hart [facility]LD[facility] 1..114 350.1.13.10 4.2.7.2.686 [id number] [facility] 2023-12-24 10:45:00 2023-12-24 11:15:00 Surgery Yisel Hart [facility] 1..114 350.1.13.10 4.2.7.2.686 [id number] [facility] 2023-12-18 14:30:00 2023-12-18 14:30:00 Outpatient R KONRAD ORDOÑEZ OGECHUKWU [facility] [id number] [facility] 2023-12-18 13:00:00 2023-12-18 13:00:00 Outpatient R OBI-FRANKLINJESS WELLINGTON OBI-Valerie REIDZOMA [facility] [id number] [facility] 2023-12-17 00:00:00 2023-12-18 11:14:39 Telephone [facility] [facility] 1..114 350.1.13.10 4.2.7.2.686 [id number] [facility] 2023-12-12 08:40:00 2023-12-12 08:40:00 Outpatient R OBI-FRANKLIN JESS OBI-FRANKLIN , JESS [facility] [id number] [facility] 2023-12-07 00:00:00 2023-12-10 08:32:14 Refill [facility]rad [facility] 1.2840.114 350.1.13.10 4.2.7.2.686 [id number] [id number] [facility] 2023-11-30 00:00:00 2023-12-04 09:32:31 Patient Secure Tianna Mei [facility] ([facility]) 1.2840.114 350.1.13.10 4.2.7.2.686 [id number] [facility] 2023-11-30 15:45:00 2023-11-30 15:45:00 Outpatient R ISAAC SHAY [facility] [id number] [facility] 2023-11-27 14:00:00 2023-11-27 14:37:01 Outpatient R VANESSA LEYVA VIVIAN [facility] [id number] [facility] 2023-11-27 14:00:00 2023-11-27 14:37:01 Office Visit Vanessa Leyva [facility] 1.20.114 350.1.13.10 4.2.7.2.686 [id number] [facility] 2023-11-26 15:00:00 2023-11-26 15:30:00 Office [facility] 1.2.840.114 350.1.13.10 4.2.7.2.686 [id number] [facility] 2023-11-26 15:00:00 2023-11-26 15:00:00 Outpatient R JOSE DE JESUS MEDINA VIEN [facility] [id number] [facility] 2023-11-22 13:00:00 2023-11-22 13:30:00 Office Visit Tianna Mei [facility] ([facility]) 1.2.840.114 350.1.13.10 4.2.7.2.686 [id number] [facility] 2023-11-22 13:00:00 2023-11-22 13:00:00 Outpatient R TIANNA MEI ASHLEY [facility] [id number] [facility] 2023-11-20 10:00:00 2023-11-20 10:00:00 Outpatient R [facility] [id number] [facility] 2023-11-19 10:30:00 2023-11-19 10:30:00 Safety Analyst Visit 2, Adc Lab Obi-Jess Reid 2, Adc Lab [facility] 1..840.114 350.1.13.10 4.2.7.2.686 [id number] [facility] 2023-11-19 09:40:00 2023-11-19 10:03:53 Outpatient R OBI-FRANKLIN , JESS OBI-FRANKLIN ValerieJESS [facility] [id number] [facility] 2023-11-19 09:40:00 2023-11-19 10:03:53 Office Visit Obi[facility] Reidzoma [facility] 1.2.840.114 350.1.13.10 4.2.7.2.686 [id number] 044 [id number] [facility] 2023-11-15 00:00:00 2023-11-18 18:57:29 Refill [facility] 1.2.840.114 350.1.13.10 4.2.7.2.686 [id number] 044 [id number] [facility] 2023-11-16 00:00:00 2023-11-18 18:53:00 Refill Obi-Franklin , [facility] BUILDING 1.2840.114 350.1.13.10 4.2.7.2.686 [id number] [id number] [facility] 2023-11-18 05:34:00 2023-11-18 13:08:00 Emergency KELLY CUEVAS ROBERT [facility] ERT [id number] [facility] 2023-11-18 05:34:00 2023-11-18 13:08:00 Emergency Caro Bauer Robert Lee [facility] 1.2840.114 350.1.13.10 4.2.7.2.686 [id number] [facility] 2023-11-08 10:16:00 2023-11-08 16:16:00 Emergency TIFF VILLAFUERTE ERICA [facility] ERT [id number] [facility] 2023-11-08 10:16:00 2023-11-08 16:16:00 Emergency Tiff Isabel [facility] 1.2840.114 350.1.13.10 4.2.7.2.686 [id number] [facility] 2023-10-16 00:00:00 2023-10-19 05:44:04 Refill Obi-Franklin , [facility] BUILDING 1.2.840.114 350.1.13.10 4.2.7.2.686 [id number] [id number] [facility] 2023-10-15 00:00:00 2023-10-16 10:48:03 Refill Obi-Franklin Jess [facility] PROFESSIO NAL BUILDING 1.2.840.114 350.1.13.10 4.2.7.2.686 [id number] [facility] 2023 09:40:00 2023 09:40:00 Outpatient R OBI-FRANKLIN , JESS OBI-FRANKLIN , [facility] [id number] [facility] 2023-10-01 00:00:00 2023-10-03 15:28:49 [facility] 1.2.840.114 350.1.13.10 4.2.7.2.686 [id number] [id number] [facility] 2023-09-12 00:00:00 2023-09-13 13:09:32 Refill Obi-Franklin [facility] BUILDING 1.2.840.114 350.1.13.10 4.2.7.2.686 [id number] [facility] 2023-09-05 10:40:00 2023-09-05 10:40:00 Outpatient R OBI-FRANKLIN , JESS OBI-FRANKLIN , [facility] [id number] [facility] 2023-08-13 14:40:00 2023-08-13 14:40:00 Outpatient R OBI-FRANKLIN , JESS OBI-FRANKLIN , [facility] [id number] [facility] 2023-08-06 14:30:00 2023-08-06 15:25:53 Safety Analyst Visit 2, Adc Lab Obi-Franklin , [facility] NAL BUILDING 1.2.840.114 350.1.13.10 4.2.7.2.686 [id number] [facility] 2023-08-06 14:30:00 2023-08-06 14:30:00 Outpatient R OBI-FRANKLIN JESS OBI-FRANKLIN , JESS [facility] [id number] [facility] 2023-08-06 13:40:00 2023-08-06 14:29:31 [facility] 1.2.840.114 350.1.13.10 4.2.7.2.686 [id number] [facility] 2023-08-06 08:40:00 2023-08-06 08:40:00 Outpatient R OBI-FRANKLIN JESS OBI-FRANKLIN , [facility] [id number] [facility] 2023-07-31 00:00:00 2023-08-01 12:29:54 Telephone Konrad Ordoñez [facility] BU[facility] 1.2.840.114 350.1.13.10 4.2.7.2.686 [id number] 044 [id number] [facility] 2023-07-31 00:00:00 2023-07-31 18:10:27 Refill Obi-Franklin Jess [facility] NAL BUILDING 1.2.840.114 350.1.13.10 4.2.7.2.686 [id number] [facility] 2023-07-30 00:00:00 2023-07-31 09:10:12 Patient Secure Msg [facility] 1.2.840.114 350.1.13.10 4.2.7.2.686 [id number] [id number] [facility] 2023-07-25 00:00:00 2023-07-25 09:15:22 Refill Obi[facility]Franklin[facility]ceo [facility] BU[facility] 1.2.840.114 350.1.13.10 4.2.7.2.686 [id number] 044 [id number] [facility] 2023-05-29 00:00:00 2023-06-30 18:07:42 Patient Secure Msg [facility] 1.2.840.114 350.1.13.10 4.2.7.2.686 [id number] [facility] 2023-06-21 11:31:00 2023-06-21 12:29:[address]ONITA TRIVEDI [facility] [id number] [facility] 2023-06-21 11:31:00 2023-06-21 12:29:00 Emergency Bonita Trivedi [facility] 1.2.840.114 350.1.13.10 4.2.7.2.686 [id number] [facility] 2023-06-18 08:40:00 2023-06-18 08:40:00 Outpatient R OBI-FRANKLIN , JESS OBI-FRANKLIN , [facility] [id number] [facility] 2023-06-12 00:00:00 2023-06-12 00:00:00 Patient Secure Msg [facility] 1.2.840.114 350.1.13.10 4.2.7.2.686 [id number] [facility] 2023-06-06 13:00:00 2023-06-06 13:00:00 Outpatient R OBI-FRANKLIN , JESS OBI-FRANKLIN , [facility] [id number] [facility] 2023-05-29 00:00:00 2023-05-29 00:00:00 Refill Obi-Franklin Jess [facility] PROFESSIO NAL BUILDING 1.2.840.114 350.1.13.10 4.2.7.2.686 [id number] [facility] 2023-04-25 15:00:00 2023-04-25 15:00:00 Outpatient R OBI-FRANKLIN , JESS OBI-FRANKLIN , [facility] [id number] [facility] 2023-04-23 00:00:00 2023-04-23 00:00:00 [facility] 1.2.840.114 350.1.13.10 4.2.7.2.686 [id number] 044 [id number] [facility] 2023-04-11 00:00:00 2023-04-11 00:00:00 Refill Obi-FranklinJess arceo [facility] BUILDING 1.2.840.114 350.1.13.10 4.2.7.2.686 [id number] 044 [id number] [facility] 2023-04-05 00:00:00 2023-04-05 00:00:00 Telephone Jeimy [facility] BUILDING 1.2.840.114 350.1.13.10 4.2.7.2.686 [id number] 044 [id number] [facility] 2023-04-03 00:00:00 2023-04-03 00:00:00 Telephone Carlos [facility] 1.2.840.114 350.1.13.10 4.2.7.2.686 [id number] 044 [id number] [facility] 2023-04-03 00:00:00 2023-04-03 00:00:00 Patient Secure Msg [facility] 1.2.840.114 350.1.13.10 4.2.7.2.686 [id number] [id number] [facility] 2023-04-01 00:00:00 2023-04-01 00:00:00 Refill Obi-Jess Reid [facility] BUILDING 1.2.840.114 350.1.13.10 4.2.7.2.686 [id number] [id number] [facility] 2023-03-02 00:00:00 2023-03-02 00:00:00 Refill Obsuzanne-Franklin [facility] 1.2.840.114 350.1.13.10 4.2.7.2.686 [id number] [facility] 2023-02-19 00:00:00 2023-02-19 00:00:00 Refill Obsuzanne-Jess Reid [facility] BUILDING 1.2.840.114 350.1.13.10 4.2.7.2.686 [id number] 044 [id number] [facility] 2023-01-26 00:00:00 2023-01-26 00:00:00 Patient Secure Msg Doctor Unassigned, [place] [facility] 1.2.840.114 350.1.13.10 4.2.7.2.686 [id number] [facility] 2023-01-24 15:00:00 2023-01-24 15:25:03 Outpatient R OBI-FRANKLIN , JESS [facility]BI[facility]FRANKLIN [facility] [id number] [facility] 2023-01-24 15:00:00 2023-01-24 15:25:03 [facility] 1.2.840.114 350.1.13.10 4.2.7.2.686 [id number] 044 [id number] [facility] 2023-01-16 00:00:00 2023-01-16 00:00:00 [facility] 1.2.840.114 350.1.13.10 4.2.7.2.686 [id number] [facility] 2023-01-15 00:00:00 2023-01-15 00:00:00 Orders Only Doctor Unassigned, [place] [facility] 1.2.840.114 350.1.13.10 4.2.7.2.686 [id number] [facility] 2023-01-15 00:00:00 2023-01-15 00:00:00 Patient Secure Msg Doctor Unassigned, [place] [facility] 1.2.840.114 350.1.13.10 4.2.7.2.686 [id number] 044 [id number] [facility] 2023-01-08 00:00:00 2023-01-08 00:00:00 [facility]phone [facility] 1.2.840.114 350.1.13.10 4.2.7.2.686 [id number] [id number] [facility] 2023-01-06 00:00:00 2023-01-06 00:00:00 Orders Only Doctor Unassigned, [place] [facility] 1.2.840.114 350.1.13.10 4.2.7.2.686 [id number] [facility] 2023-01-05 00:00:00 2023-01-05 00:00:00 Telephone [facility] 1.2.840.114 350.1.13.10 4.2.7.2.686 [id number] [id number] [facility] 2023-01-03 00:00:00 2023-01-03 00:00:00 Telephone Jeimy [facility] BUILDING 1.2.840.114 350.1.13.10 4.2.7.2.686 [id number] 044 [id number] [facility] 2023-01-01 00:00:00 2023-01-01 00:00:00 Patient Secure Msg Doctor Unassigned, [place] [facility] 1.2.840.114 350.1.13.10 4.2.7.2.686 [id number] 044 [id number] [facility] 2022-12-28 00:00:00 2022-12-28 00:00:00 Patient Secure Msg Jeimy [facility] BUILDING 1.2.840.114 350.1.13.10 4.2.7.2.686 [id number] [id number] [facility] 2022-12-26 00:00:00 2022-12-26 00:00:00 Telephone [facility] 1.2.840.114 350.1.13.10 4.2.7.2.686 [id number] 044 [id number] [facility] 2022-12-25 14:45:00 2022-12-25 15:00:00 Safety Analyst Visit 2, Adc Lab Jeimy [facility] BUILDING 1.2.840.114 350.1.13.10 4.2.7.2.686 [id number] [facility] 2022-12-25 14:00:00 2022-12-25 14:14:40 Outpatient R OBI-FRANKLIN JESS OBI-FRANKLIN , JESS [facility] [id number] [facility] 2022-12-25 14:00:00 2022-12-25 14:14:40 Office Visit Obi[facility]FranklinJess [facility]ce[facility] 02.20.840.114 350.1.13.10 4.2.7.2.686 [id number] [facility] 2022-12-19 10:00:00 2022-12-19 10:00:00 Outpatient R OBI-FRANKLIN ANGELOMA OBI-FRANKLIN JESS [facility] [id number] [facility] 2022-07-19 15:30:00 2022-07-19 15:30:00 Outpatient R KAMILA MILAN [facility] [id number] [facility] 2022-04-14 10:00:00 2022-04-14 10:00:00 Outpatient R [facility] [id number] [facility] 2022-01-20 13:00:00 2022-01-20 14:43:14 Outpatient R JACINTA VOSS [facility] [id number] [facility] 2022-01-20 13:00:00 2022-01-20 14:43:14 Office Visit Provider, Dylan-AlexchMeche Chicas Brenda A [facility] THERAPEUTIC SPECIALIST [facility] 02.20.840.114 350.1.13.10 4.2.7.2.686 [id number] [facility] 2022-01-16 10:45:00 2022-01-16 10:45:00 Outpatient R MECHE ROBERSON [facility] [id number] [facility] 2022-01-05 00:00:00 2022-01-05 00:00:00 Encounter 1.2.840.1 [id number] 1.2.840.114 350.1.13.10 4.2.7.2.696 [id number] [facility] 2022-01-03 00:00:00 2022-01-03 00:00:00 Orders Only Doctor Unassigned, [place] [facility] 1.2.840.114 350.1.13.10 4.2.7.2.686 [id number] [facility] 2021-12-29 00:00:00 2021-12-29 00:00:00 Patient Secure Msg Rodrick Pete [facility] THERAPEUTIC SPECIALIST [facility] & CHILD [facility] 1.2840.114 350.1.13.10 4.2.7.2.686 [id number] [facility] 2021-12-22 07:45:00 2021-12-22 08:42:11 Outpatient R JACINTA VOSS [facility] [id number] [facility] 2021-12-22 07:45:00 2021-12-22 08:42:11 Routine Visit Provider, Ang-Rmchp Jacinta Parra [facility] THERAPEUTIC SPECIALIST [facility] & CHILD [facility] 1.2840.114 350.1.13.10 4.2.7.2.686 [id number] [facility] 2021-12-03 00:00:00 2021-12-03 00:00:00 Patient Secure Msg Doctor Unassigned, [place] [facility] 1.2840.114 350.1.13.10 4.2.7.2.686 [id number] [facility] 2021-11-30 00:00:00 2021-11-30 00:00:00 Patient Secure Msg Rodrick Pete [facility] THERAPEUTIC SPECIALIST [facility]ILD [facility] 1.2.840.114 350.1.13.10 4.2.7.2.686 [id number] [place] [facility] 03:26:00 2021-11-29 10:05:00 Inpatient P ADVANESSA MG [facility] [id number] [facility] 2021-11-26 03:26:00 2021-11-29 10:05:00 Hospital Encounter Vanessa Leyva [facility] 1.2.840.114 350.1.13.10 4.2.7.2.686 [id number] [facility] 2021-11-26 15:34:00 2021-11-27 08:48:00 Anesthesia Event Wilver Owens [facility] 1.2.840.114 350.1.13.10 4.2.7.2.686 [id number] 083 [id number] [facility] 2021-11-26 10:17:37 2021-11-26 10:17:37 Anesthesia Event Wilver Owens [facility] 1.2.840.114 350.1.13.10 4.2.7.2.686 [id number] [facility] 2021-11-23 09:45:00 2021-11-23 10:25:58 Outpatient LOVE SANTA EMILY [facility] [id number] [facility] 2021-11-23 09:45:00 2021-11-23 10:25:58 [facility] Norton Emily J. [facility] THERAPEUTIC SPECIALIST [facility] & CHILD [facility] 1.2.840.114 350.1.13.10 4.2.7.2.686 [id number] 107 [id number] [facility] 2021-11-11 09:45:00 2021-11-11 10:12:23 Routine Visit Rodrick Pete [facility] THERAPEUTIC SPECIALIST [facility] & CHILD [facility] 1.2.840.114 350.1.13.10 4.2.7.2.686 [id number] 107 [id number] [facility] 2021-11-11 09:45:00 2021-11-11 10:12:23 Outpatient R PETERODRICK [facility] [id number] [facility] 2021-11-11 00:00:00 2021-11-11 00:00:00 Patient Secure Msg Rodrick Pete [facility] THERAPEUTIC SPECIALIST [facility] & CHILD [facility] 1.2840.114 350.1.13.10 4.2.7.2.686 [id number] 107 [id number] [facility] 2021-11-09 00:00:00 2021-11-09 00:00:00 Telephone Rodrick Pete [facility] THERAPEUTIC SPECIALIST [facility] & CHILD [facility] 1.2840.114 350.1.13.10 4.2.7.2.686 [id number] 107 [id number] [facility] 2021-11-07 00:00:00 2021-11-07 00:00:00 Refill Rodrick Pete [facility] THERAPEUTIC SPECIALIST [facility] & CHILD [facility] 1.2840.114 350.1.13.10 4.2.7.2.686 [id number] 107 [id number] [facility] 2021-10-27 17:35:00 2021-10-27 19:05:00 Outpatient X BRENDA VELÁSQUEZ [facility] [id number] [facility] 2021-10-27 17:35:00 2021-10-27 19:05:00 Emergency Brenda Velásquez K Paige [facility] 1.2840.114 350.1.13.10 4.2.7.2.686 [id number] [id number] [facility] 2021-10-27 12:45:00 2021-10-27 13:34:39 Outpatient R RODRICK PETE [facility] [id number] [facility] 2021-10-27 12:45:00 2021-10-27 13:34:39 Routine Visit Rodrick Pete [facility] THERAPEUTIC SPECIALIST [facility] & CHILD [facility] 1.0.114 350.1.13.10 4.2.7.2.686 [id number] 107 [id number] [facility] 2021-10-27 12:45:00 2021-10-27 12:45:00 Outpatient R RODRICK PETE [facility] [id number] [facility] 2021-10-27 00:00:00 2021-10-27 00:00:00 Orders Only Doctor Unassigned, Markham [facility] 1..114 350.1.13.10 4.2.7.2.686 [id number] [id number] [facility] 2021-10-26 00:00:00 2021-10-26 00:00:00 Abstract Rodrick Pete [facility] THERAPEUTIC SPECIALIST [facility] & CHILD [facility] 1..114 350.1.13.10 4.2.7.2.686 [id number] 107 [id number] [facility] 2021-10-21 09:45:00 2021-10-21 10:30:00 Safety Analyst Visit Ultrasound, Vinh Stone [facility] THERAPEUTIC SPECIALIST [facility] & CHILD [facility] 1..114 350.1.13.10 4.2.7.2.686 [id number] [facility] 2021-10-21 09:45:00 2021-10-21 09:45:00 Outpatient VINH JOY SANGEETA [facility] [id number] [facility] 2021-10-18 00:00:00 2021-10-18 00:00:00 Patient Secure Msg Doctor Unassigned, Markham [facility] THERAPEUTIC SPECIALIST [facility] & CHILD [facility] 1..840.114 350.1.13.10 4.2.7.2.686 [id number] 107 [id number] [facility] 2021-10-18 00:00:00 2021-10-18 00:00:00 Telephone Rodrick Pete [facility] THERAPEUTIC SPECIALIST [facility] & CHILD [facility] 1..840.114 350.1.13.10 4.2.7.2.686 [id number] 107 [id number] [facility] 2021-10-14 08:00:00 2021-10-14 08:34:31 Outpatient R RODRICK PETE [facility] [id number] [facility] 2021-10-14 08:00:00 2021-10-14 08:34:31 Routine Visit Rodrick Pete [facility] 1..840.114 350.1.13.10 4.2.7.2.686 [id number] 107 [id number] [facility] 2021-09-29 10:45:00 2021-09-29 11:39:29 Outpatient R RODRICK PETE [facility] [id number] [facility] 2021-09-29 10:45:00 2021-09-29 11:39:29 Routine Visit Rodrick Pete [facility] THERAPEUTIC SPECIALIST [facility] 1..840.114 350.1.13.10 4.2.7.2.686 [id number] 107 [id number] [facility] 2021-09-29 10:45:00 2021-09-29 10:45:00 Outpatient R RODRICK PETE [facility] [id number] [facility] 2021-09-16 00:00:00 2021-09-16 00:00:00 Patient Secure Msg Doctor Unassigned, Markham [facility] 1.84.114 350.1.13.10 4.2.7.2.686 [id number] [facility] 2021-09-16 00:00:00 2021-09-16 00:00:00 Telephone Rodrick Pete [facility] THERAPEUTIC SPECIALIST [facility] & CHILD [facility] 1.84.114 350.1.13.10 4.2.7.2.686 [id number] 107 [id number] [facility] 2021-09-16 00:00:00 2021-09-16 00:00:00 Telephone Rodrick Pete [facility] THERAPEUTIC SPECIALIST [facility] & CHILD [facility] 1.84.114 350.1.13.10 4.2.7.2.686 [id number] 107 [id number] [facility] 2021-09-15 10:45:00 2021-09-15 11:53:13 Outpatient R RODRICK PETE [facility] [id number] [facility] 2021-09-15 10:45:00 2021-09-15 11:53:13 Routine Visit Rodrick Pete [facility] THERAPEUTIC SPECIALIST [facility] CHILD [facility] 1.84.114 350.1.13.10 4.2.7.2.686 [id number] 107 [id number] [facility] 2021-09-13 00:00:00 2021-09-13 00:00:00 Refill Rodrick Pete [facility] THERAPEUTIC SPECIALIST [facility] CHILD [facility] 1.84.114 350.1.13.10 4.2.7.2.686 [id number] 107 [id number] [facility] 2021-08-23 08:45:00 2021-08-23 22:46:00 Outpatient X BRENDA VELÁSQUEZ [facility] [id number] [facility] 2021-08-23 08:45:00 2021-08-23 22:46:00 Emergency Martinez, Brenda Avery [facility] 1.2.840.114 350.1.13.10 4.2.7.2.686 [id number] [id number] [facility] 2021-08-18 10:30:00 2021-08-18 10:44:10 Outpatient R RODRICK PETE [facility] [id number] [facility] 2021-08-18 10:30:00 2021-08-18 10:44:10 Routine Visit Rodrick Pete [facility] THERAPEUTIC SPECIALIST [facility] & CHILD [facility] 1.2840.114 350.1.13.10 4.2.7.2.686 [id number] 107 [id number] [facility] 2021-08-11 00:00:00 2021-08-11 00:00:00 Patient Secure Msg Rodrick Pete [facility] THERAPEUTIC SPECIALIST [facility] & CHILD [facility] 1.2.840.114 350.1.13.10 4.2.7.2.686 [id number] 107 [id number] [facility] 2021-08-11 00:00:00 2021-08-11 00:00:00 Refill Rodrick Pete [facility] THERAPEUTIC SPECIALIST [facility] & CHILD [facility] 1.2.840.114 350.1.13.10 4.2.7.2.686 [id number] 107 [id number] [facility] 2021-08-11 00:00:00 2021-08-11 00:00:00 Refill Rodrick Pete [facility] THERAPEUTIC SPECIALIST [facility] & CHILD [facility] 1.2.840.114 350.1.13.10 4.2.7.2.686 [id number] 107 [id number] [facility] 2021-08-11 00:00:00 2021-08-11 00:00:00 Refill Rodrick Pete [facility] THERAPEUTIC SPECIALIST [facility] 1.2.840.114 350.1.13.10 4.2.7.2.686 [id number] 107 [id number] [facility] 2021-08-02 00:00:00 2021-08-02 00:00:00 Abstract Rodrick Pete [facility] THERAPEUTIC SPECIALIST [facility] CHILD [facility] 1.2.840.114 350.1.13.10 4.2.7.2.686 [id number] 107 [id number] [facility] 2021-08-01 00:00:00 2021-08-01 00:00:00 Patient Secure Msg Doctor Unassigned, Markham [facility] 1.2.840.114 350.1.13.10 4.2.7.2.686 [id number] 107 [id number] [facility] 2021-07-29 09:30:00 2021-07-29 10:45:00 Safety Analyst Visit Ultrasound, Rodrick Forbes Antonio F [facility]/GYN [facility] 1..840.114 350.1.13.10 4.2.7.2.686 [id number] [facility] 2021-07-29 09:30:00 2021-07-29 09:30:00 Outpatient P [facility] [id number] [facility] 2021-07-29 09:30:00 2021-07-29 09:30:00 Outpatient P MADDIE ROMEO [facility] [id number] [facility] 2021-07-29 08:00:00 2021-07-29 08:36:27 Safety Analyst Visit Lab, JuliaRodrick Lopez [facility] 1.840.114 350.1.13.10 4.2.7.2.686 [id number] 107 [id number] [facility] 2021-07-23 00:00:00 2021-07-23 00:00:00 Patient Secure Msg Doctor Unassigned, Markham [facility] 1.840.114 350.1.13.10 4.2.7.2.686 [id number] [facility] 2021-07-21 09:00:00 2021-07-21 10:12:55 Outpatient Demetri RODRICK PETE [facility] [id number] [facility] 2021-07-21 09:00:00 2021-07-21 10:12:55 Routine Visit Rodrick Pete [facility] THERAPEUTIC SPECIALIST [facility] & CHILD [facility] 1.840.114 350.1.13.10 4.2.7.2.686 [id number] 107 [id number] [facility] 2021-07-21 09:00:00 2021-07-21 10:12:55 Outpatient Demetri RODRICK PETE [facility] [id number] [facility] 2021-07-21 09:00:00 2021-07-21 09:00:00 Outpatient RODRICK DENNIS [facility] [id number] [facility] 2021-07-21 09:00:00 2021-07-21 09:00:00 Outpatient Demetri RODRICK PETE [facility] [id number] [facility] 2021-07-17 02:36:00 2021-07-17 06:54:00 Emergency X CARO BAUER [facility] [id number] [facility] 2021-07-17 02:36:00 2021-07-17 06:54:00 Emergency Caro Bauer [facility] 1..840.114 350.1.13.10 4.2.7.2.686 [id number] [facility] 2021-07-12 00:00:00 2021-07-12 00:00:00 Telephone HeRodrick [facility] THERAPEUTIC SPECIALIST [facility] & CHILD [facility] 1.2.840.114 350.1.13.10 4.2.7.2.686 [id number] 107 [id number] [facility] 2021-07-06 00:00:00 2021-07-06 00:00:00 Telephone Kiki Petecuauhtemoc Demetri [facility] THERAPEUTIC SPECIALIST [facility] 1.2840.114 350.1.13.10 4.2.7.2.686 [id number] 107 [id number] [facility] 2021-06-28 01:26:00 2021-06-29 10:10:00 Outpatient X BRENDA VELÁSQUEZ [facility] [id number] [facility] 2021-06-28 01:26:00 2021-06-29 10:10:00 Emergency Alayna Bear S Eduardo Velásquezn [facility] 1.2840.114 350.1.13.10 4.2.7.2.686 [id number] [facility] 2021-06-27 20:49:00 2021-06-27 20:59:00 Emergency X [facility] [id number] [facility] 2021-06-27 20:49:00 2021-06-27 20:59:00 Emergency [facility] 1.2840.114 350.1.13.10 4.2.7.2.686 [id number] [facility] 2021-06-24 00:00:00 2021-06-24 00:00:00 Patient Secure Msg Rodrick Pete [facility] THERAPEUTIC SPECIALIST [facility] & CHILD [facility] 1.2.840.114 350.1.13.10 4.2.7.2.686 [id number] 107 [id number] [facility] 2021-06-24 00:00:00 2021-06-24 00:00:00 Telephone Rodrick Pete [facility] THERAPEUTIC SPECIALIST [facility] & CHILD [facility] 1.2840.114 350.1.13.10 4.2.7.2.686 [id number] 107 [id number] [facility] 2021-06-23 14:00:00 2021-06-23 15:33:45 Outpatient R RODRICK PETE [facility] [id number] [facility] 2021-06-23 14:00:00 2021-06-23 15:33:45 Initial Visit Rodrick Pete [facility] THERAPEUTIC SPECIALIST [facility] & CHILD [facility] 1.840.114 350.1.13.10 4.2.7.2.686 [id number] [facility] 2021-06-23 14:00:00 2021-06-23 15:33:45 Outpatient R KIKI PETECUAUHTEMOC [facility] [id number] [facility] 2021-06-23 14:00:00 2021-06-23 15:33:45 [facility] [id number] 2021-06-23 00:00:00 2021-06-23 00:00:00 Orders Only Doctor Unassigned, Markham [facility] 1.840.114 350.1.13.10 4.2.7.2.686 [id number] [facility] 2021-06-22 08:04:00 2021-06-22 13:00:[address] [facility] [id number] [facility] 2021-06-22 08:04:00 2021-06-22 13:00:00 Emergency Angus Dwyer [facility] 1.2.840.114 350.1.13.10 4.2.7.2.686 [id number] [facility] 2021-06-21 22:18:00 2021-06-21 23:26:00 Emergency Caro Bauer [facility] 1.2.840.114 350.1.13.10 4.2.7.2.686 [id number] [facility] 2021-06-21 22:18:00 2021-06-21 23:26:00 Emergency X CARO BAUER [facility] [id number] [facility] 2021-06-21 22:18:00 2021-06-21 23:26:00 Emergency X CARO BAUER [facility] [id number] [facility] 2021-06-11 12:44:00 2021-06-14 18:06:00 Inpatient X JOSE DE JESUS MEDINA [facility] [id number] [facility] 2021-06-11 12:44:00 2021-06-14 18:06:00 Hospital Encounter Abdullahi Gomez Christopher Adum, Vivian L Lam, [facility] 1.2.840.114 350.1.13.10 4.2.7.2.686 [id number] [facility] 2021-05-30 23:49:00 2021-06-03 14:41:00 Hospital Encounter Abdullahi Gomez Shannon M [facility] 1.2.840.114 350.1.13.10 4.2.7.2.686 [id number] [facility] 2021-05-30 23:49:00 2021-06-03 14:41:00 Inpatient X EDITH TERRY SHANNON [facility] [id number] [facility] Results Test Description Test Time Test Comments Results Result Co mments Source [facility]US OVARY [id number] 16:40:41EXAM: US OVARY TORSION HISTORY: 28 years-old Female; Provided indication: eval for torsion; pelvicpain; bilateral 5.1cm cysts seen on CT . LMP = 4Pregnancy test = Negative. TECHNIQUE: Transabdominal and transvaginal ultrasound imaging and colorDoppler evaluation of the pelvis was performed. Spectral Doppler evaluationof the ovaries was performed. Continuous Drier Operator images were obtained for therecord. COMPARISON: Same [...] arevisualized. Normal flow is seen on color Doppler.[facility] HospitalCT ABDOMEN PELVIS W [id number] 14:33:00Indication: Nausea/vomiting ? Comparison: None RL: 4209 [...] soft tissue: No acute osseous abnormality is noted.[facility] HospitalPregnancy Test, [id number] 11:59:46* Test Item Value Reference Range Interpretation Comme nts PREG SERUM (test code = 7184692561) Negative RUMA (test code = RUMA) Less than 10 IU/L. ?If low titer or ectopic is suspected, resubmit specimen in 48-72 hours. [facility] HospitalComplete Metabolic [id number] 11:58:40* Test Item Value Reference Range Interpretation Comme nts NA (test code = 5274177132) 138 mmol/L 135-145 K (test code = 6423196450) 3.5 mmol/L 3.5-5.0 CL (test code = 4729509353) 106 mmol/L 98-108 CO2 TOTAL (test code = 5974547877) 23 mmol/L 23-31 AGAP (test code = 2545201341) 9 2-16 BUN (test code = 4487656990) 6 mg/dL 7-23 L GLUCOSE (test code = 8482029455) 122 mg/dL 70-110 H CREATININE (test code = 2160-0) 0.61 mg/dL 0.50-1.04 TOTAL BILI (test code = 4568146267) 0.6 mg/dL 0.1-1.1 CALCIUM (test code = 0351871728) 9.0 mg/dL 8.6-10.6 T PROTEIN (test code = 7889948262) 8.1 g/dL 6.3-8.2 ALBUMIN (test code = 3353522441) 4.4 g/dL 3.5-5.0 ALK PHOS (test code = 1514589075) 85 U/L 34-122 ALTv (test code = 1742-6) 20 U/L 5-35 AST(SGOT) (test code = 5082364621) 19 U/L 13-40 eGFR (test code = 13219-1) 125.8 mL/min/1.73m2 CKD-EPI eGFR (2020). Assuming creatinine has been stable day-to-day for at least three months, the eGFR indicates Category G1 (>= 90 mL/min/1.73 m2) Lab Interpretation (test code = 47743-0) Abnormal [facility] HospitalLipase, [id number] 11:58:19* Test Item Value Reference Range Interpretation Comme nts LIPASE (test code = 1526935333) 40 U/L 0-220 Lab Interpretation (test cod e = 71550-8) Normal [facility] HospitalCBC with [id number] 11:41:57* Test Item Value Reference Range Interpretation [...] 32.8 g/dL 31.6-35.1 RDW-SD (test code = 12151-2) 51.3 fL 39.0-49.9 H RDW-CV (test code = 788-0) 13.7 % 12.0-15.5 PLT (test code = 777-3) 349 166-358 MPV (test code = 61515-9) 9.3 fL 9.5-12.9 L NRBC/100 WBC (test code = 4511832680) 0.0 0.0-10.0 NRBC x10^3 (test code = 3276928297) See_Comment [Automated messa ge] The system which generated this result transmitted reference range: 10*3/?L. The reference range was not used to interpret this result as normal/abnormal. GRAN MAT (NEUT) % (test code = 770-8) 73.3 % IMM GRAN % (test code = 5293079257) 0.40 % LYMPH % (test code = 736-9) 19.0 % MONO % (test code = 5905-5) 4.8 % EOS % (test code = 713-8) 2.0 % BASO % (test code = 706-2) 0.5 % GRAN MAT x10^3(ANC) (test code = 2556730563) 7.18 10*3/uL 1.88-7.09 H IMM GRAN x10^3 (test code = 0923789087) 0.04 10*3/uL 0.00-0.06 LYMPH x10^3 (test code = 731-0) 1.86 10*3/uL 1.32-3.29 MONO x10^3 (test code = 742-7) 0.47 10*3/uL 0.33-0.92 EOS x10^3 (test code = 711-2) 0.20 10*3/uL 0.03-0.39 BASO x10^3 (test code = 704-7) 0.05 10*3/uL 0.01-0.07 Lab Interpretation (test code = 99734-3) Abnormal [facility] HospitalCOMP. METABOLIC PANEL (60521)2023-11-08 17:45:25* Test Item Value Reference Range Interpretation Comme nts NA (test code = 2602647541) 136 mmol/L 135-145 K (test code = 3001567242) 3.1 mmol/L 3.5-5.0 L CL (test code = 0642629820) 105 mmol/L 98-108 CO2 TOTAL (test code = 0371626931) 21 mmol/L 23-31 L AGAP (test code = 7148902884) 10 2-16 BUN (test code = 4776231101) 12 mg/dL 7-23 GLUCOSE (test code = 1436033142) 92 mg/dL 70-110 CREATININE (test code = 2160-0) 0.57 mg/dL 0.50-1.04 TOTAL BILI (test code = 8932198421) 0.6 mg/dL 0.1-1.1 CALCIUM (test code = 8744618396) 9.0 mg/dL 8.6-10.6 T PROTEIN (test code = 7857364955) 8.0 g/dL 6.3-8.2 ALBUMIN (test code = 3473985700) 4.3 g/dL 3.5-5.0 ALK PHOS (test code = 0974142996) 81 U/L 34-122 ALTv (test code = 1742-6) 17 U/L 5-35 AST(SGOT) (test code = 3188907718) 45 U/L 13-40 H eGFR (test code = 13001-0) 127.9 mL/min/1.73m2 CKD-EPI eGFR (2020). Assuming creatinine has been stable day-to-day for at least three months, the eGFR indicates Category G1 (>= 90 mL/min/1.73 m2) Lab Interpretation (test code = 82610-6) Abnormal [facility] HospitalLIPASE2024-09-19 16:30:35* Test Item Value Reference Range Interpretation Comme nts LIPASE (test code = 8509761688) 53 U/L 0-220 Lab Interpretation (test cod e = 55271-4) Normal [facility] HospitalCB WITH [id number] 16:15:57* Test Item Value Reference Range Interpretation [...] 33.1 g/dL 31.6-35.1 RDW-SD (test code = 00782-9) 50.1 fL 39.0-49.9 H RDW-CV (test code = 788-0) 13.8 % 12.0-15.5 PLT (test code = 777-3) 471 166-358 H MPV (test code = 93250-1) 9.2 fL 9.5-12.9 L NRBC/100 WBC (test code = 5216965969) 0.0 0.0-10.0 NRBC x10^3 (test code = 9744882430) See_Comment [Automated messa ge] The system which generated this result transmitted reference range: 10*3/?L. The reference range was not used to interpret this result as normal/abnormal. GRAN MAT (NEUT) % (test code = 770-8) 77.8 % IMM GRAN % (test code = 2061010293) 0.30 % LYMPH % (test code = 736-9) 16.7 % MONO % (test code = 5905-5) 4.7 % EOS % (test code = 713-8) 0.2 % BASO % (test code = 706-2) 0.3 % GRAN MAT x10^3(ANC) (test code = 7304463146) 9.31 10*3/uL 1.88-7.09 H IMM GRAN x10^3 (test code = 3762609184) 0.04 10*3/uL 0.00-0.06 LYMPH x10^3 (test code = 731-0) 1.99 10*3/uL 1.32-3.29 MONO x10^3 (test code = 742-7) 0.56 10*3/uL 0.33-0.92 EOS x10^3 (test code = 711-2) 0.03-0.39 L BASO x10^3 (test code = 704-7) 0.03 10*3/uL 0.01-0.07 Lab Interpretation (test code = 95130-5) Abnormal [facility] [id number] 16:01:00* Test Item Value Reference Range Interpretation Comme nts POCT PREG (test code = 1605) Negative On board controls acceptable with C Line (test code = 3574) Yes POCT PREG LOT # (test code = 3575) [id number] POCT PREG TEST DATE ( test code = 357) 11-28-24 Lab Interpretation (test cod e = 47262-7) Normal [facility] [id number] 16:30:00* Test Item Value Reference Range Interpretation Comme nts POCT PREG (test code = 1605) Negative On board controls acceptable with C Line (test code = 3574) Yes POCT PREG LOT # (test code = 3575) [id number] POCT PREG TEST DATE ( test code = 357) 03/28/2024 Lab Interpretation (test cod e = 85804-6) [id number]:18:[facility]* Test Item Value Reference Range Interpretation Comme nts POCT PREG (test code = 1605) Negative On board controls acceptable with C Line (test code = 3574) Yes POCT PREG LOT # (test code = 3575) POCT PREG TEST DATE ( test code = 3576) [id number] 20:18:00* Test Item Value Reference Range Interpretation Comme nts POCT PREG (test code = 1605) Negative On board controls acceptable with C Line (test code = 3574) Yes POCT PREG LOT # (test code = 3575) POCT PREG TEST DATE ( test code = 3576) [facility] OR [facility] ONLY - [id number] 04:42:10* Test Item Value Reference Range Interpretation Comme nts RPR (Qualitative) (test code = 20343-4) Nonreactive Nonreactive Lab Interpretation (test cod e = 08726-2) Normal [facility] Hospital[facility]atitis B Surface [id number] 17:49:35 * Test Item Value Reference Range Interpretation Comme nts HBsAg Semi-Quantitative (mesha t code = 5195-3) Negative Negative [facility]HIV [facility]/2 AG-AB WITH [id number] 12:19:16* Test Item Value Reference Range Interpretation Comme nts HIV Semi-quantitative (test code = 15133-4) Negative Negative RUMA (test code = RUMA) Non-reactive for HIV-1 antigen and HIV-1/HIV-2 antibodies. ?No laboratory evidence of HIV infection. ?Repeat in 2-4 weeks if acute HIV infection is suspected. [facility]. METABOLIC PANEL (29313)2021-11-26 11:29:08* Test Item Value Reference Range Interpretation Comme nts NA (test code = 6766970211) 137 mmol/L 135-145 K (test code = 2165848935) 3.6 mmol/L 3.5-5 CL (test code = 0736656363) 105 mmol/L 98-108 CO2 TOTAL (test code = 2797645116) 21 mmol/L 23-31 L AGAP (test code = 6300751034) 2-16 BUN (test code = 9111744997) 4 mg/dL 7-23 L GLUCOSE (test code = 0009949671) 93 mg/dL 70-110 CREATININE (test code = 2112674163) 0.49 mg/dL 0.5-1.04 L TOTAL BILI (test code = 6900116221) 0.2 mg/dL 0.1-1.1 CALCIUM (test code = 9211716002) 9.0 mg/dL 8.6-10.6 T PROTEIN (test code = 7537102528) 6.9 g/dL 6.3-8.2 ALBUMIN (test code = 0161936772) 3.7 g/dL 3.5-5 ALK PHOS (test code = 4385025700) 169 U/L 34-122 H ALTv (test code = 1742-6) 15 U/L 5-35 AST(SGOT) (test code = 2945752929) 23 U/L 13-40 eGFR (test code = 9495599966) mL/min/1.73m2 RUMA (test code = RUMA) Association [...] imaging tests). Lab Interpretation (test code = 47879-6) Abnormal [facility] HospitalURIC [id number] 11:28:48* Test Item Value Reference Range Interpretation Comme nts URIC ACID (test code = 2933246170) 3.4 mg/dL 2.9-6 Lab Interpretation (test cod e = 62507-6) Normal [facility] HospitalLACTATE [id number] 11:24:10* Test Item Value Reference Range Interpretation Comme nts LDH (test code = 7587611683) 216 U/L 120-246 Lab Interpretation (test cod e = 18755-1) Normal [facility] HospitalType and Screen - ONCE [id number] 10:30:18 * Test Item Value Reference Range Interpretation Comme [facility] ABO & RH (test code = 20) O Positive Performed at [facility] Laboratory [facility] Blood [address] Free: [phone] No. [id number] IAT (test code = 1185) Negative Performed at [facility] Laboratory [facility] Blood [address] Free: [phone] No. [id number] [facility]CBC with Epddvrmgoncb8970-87-32 09:46:38* Test Item Value Reference Range Interpretation [...] 34.9 g/dL 31.6-35.1 RDW-SD (test code = 38969-4) 40.9 fL 39-49.9 RDW-CV (test code = 788-0) 12.2 % 12-15.5 PLT (test code = 777-3) See_Comment [Automated messa ge] The system which generated this result transmitted reference range: 166 - 358 10*3/?L. The reference range was not used to interpret this result as normal/abnormal. MPV (test code = 28482-4) 9.9 fL 9.5-12.9 NRBC/100 WBC (test code = 5632781817) See_Comment [Automated [employer] ssage] The system which generated this result transmitted reference range: 0.0 - 10.0 /100 WBCs. The reference range was not used to interpret this result as normal/abnormal. NRBC x10^3 (test code = 4580507718) See_Comment [Automated messa ge] The system which generated this result transmitted reference range: 10*3/?L. The reference range was not used to interpret this result as normal/abnormal. GRAN MAT (NEUT) % (test code = 770-8) 70.4 % IMM GRAN % (test code = 4329565056) 0.70 % LYMPH % (test code = 736-9) 20.1 % MONO % (test code = 5905-5) 6.0 % EOS % (test code = 713-8) 2.5 % BASO % (test code = 706-2) 0.3 % GRAN MAT x10^3(ANC) (test code = 8597902400) 8.92 10*3/uL 1.88-7.09 H IMM GRAN x10^3 (test code = 0291794009) 0.09 10*3/uL 0-0.06 H LYMPH x10^3 (test code = 731-0) 2.55 10*3/uL 1.32-3.29 MONO x10^3 (test code = 742-7) 0.76 10*3/uL 0.33-0.92 EOS x10^3 (test code = 711-2) 0.32 10*3/uL 0.03-0.39 BASO x10^3 (test code = 704-7) 0.04 10*3/uL 0.01-0.07 Lab Interpretation (test code = 36906-2) Abnormal [facility] URINALYSIS W SPECIFIC [id number] 14:56:00* Test Item Value Reference Range Interpretation [...] POCT U APPEAR (test code = 3267) [facility] URINALYSIS W SPECIFIC [id number] 14:56:00* Test Item Value Reference Range Interpretation [...] POCT U APPEAR (test code = 3267) [facility] URINALYSIS W SPECIFIC [id number] 14:58:00* Test Item Value Reference Range Interpretation [...] POCT U APPEAR (test code = 3267) [facility] URINALYSIS W SPECIFIC [id number] 14:58:00* Test Item Value Reference Range Interpretation [...] POCT U APPEAR (test code = 3267) [facility] URINALYSIS W SPECIFIC [id number] 14:58:00* Test Item Value Reference Range Interpretation [...] POCT U APPEAR (test code = 3267) [facility] URINALYSIS W SPECIFIC [id number] 14:58:00* Test Item Value Reference Range Interpretation [...] POCT U APPEAR (test code = 3267) [facility] URINALYSIS W SPECIFIC [id number] 14:58:00* Test Item Value Reference Range Interpretation [...] POCT U APPEAR (test code = 3267) [facility]CIFIC [id number] 18:21:00* Test Item Value Reference Range Interpretation [...] POCT U APPEAR (test code = 3267) [facility] Notes Date/Time Note Provider Source 2023-12-25 13:55:45 [...] ago (11/19/2023) by Jess Munson MD Off-Protocol Ugcaux9212/25/2023 01:50 PM Protocol Details Medication not assigned to a protocol, forward to provider. Valid encounter within last 12 months zolpidem 5 mg tablet Sig: Take 1 tablet by mouth at bedtime as needed for Insomnia. Disp: 30 tablet Refills: 0 Start: 12/25/2023 Class: eRX PDMP Needs Review For: Primary insomnia Last ordered: 1 month ago (11/19/2023) by Jess Munson MD Provider Review Required Hfngcq9812/25/2023 01:50 PM Protocol Details This refill cannot be delegated Valid encounter within last 12 months To be filled at: [address] 11-19-2023 NOV 02-27-2024 FURNITURE CASTER Sabi Corrales MA [facility] 2023-12-25 10:29:31 Please review patients request for ondansetron 4 mg dissolvable tablet instead of the prescribed ondansetron 4 mg tablet. Please advise, thank you. FURNITURE CASTER Zuleima Duarte LVN [facility] 2023-12-18 11:14:17 Noted Abbey Goel MA 12/18/2023 11:14 AM Abbey Goel MA [facility] 2023-12-18 09:36:32 Pt opted for appt today Anaya Andrews [facility] 2023-12-18 09:30:12 Lanre Bales is a 28 year old female Calling in wanting to know if PCP can prescribe proMETHazine 25 mg tablet If not pt would like to be advised on what to do to manage symptoms before her endoscopy Please advise [facility] 2023-12-18 09:17:17 Pt is returning clinic call. Karina Mcclain [facility] 2023-12-17 10:33:58 Routing to provider for review as office has not sent in Rx before. Recent Visits Date Type Provider Dept 11/19/23 Office Visit Jess Munson MD [facility] Family Medicine 08/06/23 Office Visit Jess Munson MD [facility] Family Medicine 01/24/23 Office Visit Jess Munson MD [facility] Family Medicine 12/25/22 Office Visit Jess Munson MD [facility] Family [facility] Showing recent visits within past 540 days with a meds authorizing provider and meeting all other requirements Future Appointments Date Type Provider Dept 02/27/24 Appointment Jess Munson MD [facility] Family Medicine Showing future appointments within next 150 days with a meds authorizing provider and meeting all other requirements Tiff Thomason RN [facility] 2023-12-17 10:29:18 Pt states she is having a gastritis flare as of last night. Pt said she has vomited a few times. She would like a prescription sent in for nausea. She said she does not want to go to the ER because she has her son. Please Advise. [facility] [address] [place] [id number] Alberta Ashraf [facility] 2023-12-11 14:03:58 Patient returned my call. Patient [...] Pre op call complete. Jill Brown RN [facility] 2023-12-11 10:09:05 Left a message to remind [...] medications. Prep and medication instructions sent via [employer] & email: [email or web address] [facility] 2023-12-07 09:25:56 Images from the original note [...] Ordoñez NP Last refill: 09/05/2023 Rx #: [id number] Psychiatry: Antidepressants Fahpzp9312/07/2023 12:36 AM Protocol Details Manual Review: Verify no changes in dose in the last 3 months Valid encounter within last 12 months To be filled at: [facility]/pharmacy #[id number] - [address] AT [facility] 11-19-2023 NOV 02-27-2024 Sabi Corrales MA [facility] 2023-11-19 10:30:00 Breath test [facility] 2023-11-19 10:30:00 Addended by: AYESHA LIANG on: 11/19/2023 02:54 PM Modules accepted: Orders Ayesha Liang [facility] 2023-11-19 08:13:22 Pt has scheduled appointment for 11/18. Rossana Malik [facility] 2023-11-18 18:46:30 1. Primary insomnia Update patient [...] with no significant benefit, will also discontinue. [facility] 2023-11-18 13:08:04 Patient given printed and verbal [...] no apparent distress. T Tosha Duval RN [facility] 2023-11-18 07:19:14 [facility] ED Transfer of Care Note. Off-going Physician:Lizette [...] 1049) Results: Labs Reviewed COMP. METABOLIC PANEL (37422) - Abnormal; Notable for the following components: [...] to have appropriate medical decision making capability. CRIMINAL JUSTICE SOCIAL WORKER clinic referral placed. Disposition: Discharged Home Social Determinants of Health: None ED Disposition ED Disposition Disch - Home Condition Stable Comment -- [facility] [employer] 2023-11-18 07:14:03 Patient report given to Crispin GALVAN [facility] [employer] 2023-11-18 05:26:10 Pt presents to ED with c/o vomiting 2 days. Pt states she also has pain in the top of her stomach. Pt rates pain 9/10 in abdomen No meds RADIOLOGIST PHYSICIAN LMP: couple weeks ago. Lisha Spear RN [facility] 2023-11-18 05:21:00 [facility] Emergency Department Note Patient Name: Lanre Bales Date of : 1995 28 year old female Treatment Room: HI5/HI5 Primary Care Physician: Jess Munson Patient Escorted by: Family [5] Mode of Arrival: Personal means [1] EMS Treatment Prior to ED Arrival: RADIOLOGIST PHYSICIAN treatment: None Travel and Exposure Screening: Symptoms [...] History provided by: Significant other and patient manager maritime used: No Abdominal Pain Pain location: Epigastric [...] Lab Results: Lab Results COMP. METABOLIC PANEL (97474) - Abnormal Result Value Ref Range NA [...] signed by: Caro Bauer MD 11/18/23 0737 [facility] 2023-11-16 14:03:54 Images from the original note were not included. Requested Renewals zolpidem 5 mg tablet Sig: Take 1 tablet by mouth at bedtime as needed for Insomnia. Disp: 30 tablet Refills: 0 Start: 11/16/2023 Class: eRX For: Primary insomnia Last ordered: 4 weeks ago (10/19/2023) by Jess Munson MD Provider Review Required Pfeicw3811/16/2023 01:53 PM Protocol Details This refill cannot be delegated Valid encounter within last 12 months To be filled at: [facility]/pharmacy #[id number] AT [facility] 08-06-2023 NOV N/A Sabi Corrales MA [facility] 2023-11-16 14:03:07 Images from the original note [...] ago (10/16/2023) by Jess Munson MD Off-Protocol Dmmmkt6911/16/2023 01:48 PM Protocol Details Medication not assigned to a protocol, forward to provider. Valid encounter within last 12 months To be filled at: [facility] [address] [place] [address] 08-06-2023 NOV N/A Sabi Corrales MA [facility] 2023-11-16 13:49:19 Patient requesting a refill of:zolpidem Medication: zolpidem Dose: 5 mg Route: refill Quantity: 30 Pharmacy: [facility] [address] [place] [id number] Last appt.: 08/05 Next appt.: na Would like to speak with clinic about getting this done today [facility] 2023-11-16 13:46:24 Lanre Bales is a 28 year old female is calling to get an update on refill request. Pt wants this sent today T Petty Valdivia [facility] 2023-11-15 11:34:30 Images from the original note [...] ago (10/16/2023) by Jess Munson MD Off-Protocol Zqxioi7511/15/2023 11:02 AM Protocol Details Medication not assigned to a protocol, forward to provider. Valid encounter within last 12 months To be filled at: [facility] - [place], [place] - [address] [facility] [address] [facility] Last Refilled: 10/16/23 Recent Visits Date Type Provider Dept 08/06/23 Office Visit Jess Munson MD [facility] 01/24/23 Office Visit Jess Munson MD [facility] 12/25/22 Office Visit Jess Munson MD [facility] Showing recent visits within past 540 days with a meds authorizing provider and meeting all other requirements Future Appointments No visits were found meeting these conditions. Showing future appointments within next 150 days with a meds authorizing provider and meeting all other requirements Dhara Corral MA [facility] 2023-11-08 15:30:00 DC instructions and prescription for Zofran ODT reviewed with patient. She will fill prescription and take as directed. She will follow up with her PCP in 3-5 days as instructed. She will return to the ED if her symptoms persist or worsen. She was Dc'd ambulatory-alert and in no distress [facility] 2023-11-08 13:02:16 Report received and care assumed. [facility] 2023-11-08 12:50:54 Nurse Report Report given to COLE Miranda. Chief complaint, assessment findings, infusion verify and orders reviewed. Plan of care discussed with both nurses. Judy Marroquin RN Judy Marroquin RN [facility] 2023-11-08 10:15:50 Vomiting x3 days. Lucille Lester RN [facility] 2023-10-18 13:34:30 Images from the original note were not included. Notes: Patient requesting refill, please review. Abbey Goel MA 10/18/2023 1:35 PM Last Refilled: 09/13/23 Recent Visits Date Type Provider Dept 08/06/23 Office Visit Jess Munson MD [facility] Family [facility] 01/24/23 Office Visit Jess Munson MD [facility] 12/25/22 Office Visit Jess Munson MD [facility] Showing recent visits within past 540 [...] by Jess Munson MD Provider Review Required Ycienu1310/18/2023 12:27 PM Protocol Details This refill cannot be delegated Valid encounter within last 12 months To be filled at: [facility] [address] [place] [address] Abbey Goel MA [facility] 2023-10-18 12:25:18 Lanre Bales is a 28 year old female and pt is calling back to check on her refill request. Would like to know when it will be refilled please advise. zolpidem 5 mg tablet [facility] [address] [place] [id number] [facility] 2023-10-16 13:12:14 Images from the original note were not included. Requested Renewals zolpidem 5 mg tablet Sig: Take 1 tablet by mouth at bedtime as needed for Insomnia. Disp: 30 tablet Refills: 0 Start: 10/16/2023 Class: eRX For: Primary insomnia Last ordered: 1 month ago (09/13/2023) by Jess Munson MD Provider Review Required Eawxdi0910/16/2023 12:10 PM Protocol Details This refill cannot be delegated Valid encounter within last 12 months To be filled at: [facility] [address] [place] [address] 08-06-2023 NOV N/A Sabi Corrales MA [facility] 2023-10-15 13:12:38 Images from the original note [...] ago (09/13/2023) by Jess Munson MD Off-Protocol Elpuhe0310/15/2023 01:05 PM Protocol Details Medication not assigned [...] ago (10/03/2023) by Jess Munson MD Off-Protocol Czebnm7810/15/2023 01:05 PM Protocol Details Medication not assigned to a protocol, forward to provider. Valid encounter within last 12 months To be filled at: [facility] [address] [place] [address] - [address] 08-06-2023 NOV N/A Sabi Corrales MA [facility] 2023-10-02 08:26:45 Images from the original note were not included. Last OV:01/24/23 with Jess Munson MD Last Refill:12/26/22 prescribed by Jess Munson MD Last Labs Pertaining to Med:08/06/2023 Future Appt: Future Appointments Provider Department Dept Phone 2023 9:40 AM Jess Munson MD [facility] [phone] Requested Renewals ergocalciferol, vitamin d2, (VITAMIN D2) 1,250 mcg (50,000 unit) capsule Sig: Take 1 capsule by mouth weekly. Disp: 12 capsule Refills: 0 Start: 10/01/2023 Class: eRX For: Vitamin D deficiency Last ordered: 9 months ago (12/26/2022) by Jess Munson MD Off-Protocol Xizamd9110/01/2023 08:53 PM Protocol Details Medication not assigned to a protocol, forward to provider. Valid encounter within last 12 months To be filled at: [facility]/pharmacy #[id number] Abbey Goel MA [facility] 2023-09-13 08:20:32 Images from the original note [...] ago (08/06/2023) by Jess Munson MD Off-Protocol Sdtxnr6809/12/2023 06:49 PM Protocol Details Medication not assigned to a protocol, forward to provider. Valid encounter within last 12 months zolpidem 5 mg tablet Sig: Take 1 tablet by mouth at bedtime as needed for Insomnia. Disp: 30 tablet Refills: 0 Start: 09/12/2023 Class: eRX For: Primary insomnia Last ordered: 1 month ago (08/06/2023) by Jess Munson MD Provider Review Required Sdivhe0909/12/2023 06:49 PM Protocol Details This refill cannot be delegated Valid encounter within last 12 months To be filled at: [address] 08-06-2023 NOV N/A Sabi Corrales MA [facility] 2023-08-06 14:30:00 Images from the original note were not included. Venipuncture collection performed by clean technique on the right anticubitus. Total of 1 attempts were made. Slight pressure and a bandage/dressing were applied to the site(s). The patient experienced no complications. The following specimens were processed according to instructions and sent to [facility] laboratories per lab order on 08/06/2023 : LT BLUE SST 2 RED LAV 2 PPT DK GREEN (LiHep) 1 DK GREEN (SodH) HART DK BLUE (K2) 1 DK BLUE (S) ACD Blood Culture NIPT/NTD [facility] 2023-08-01 12:29:00 Attempted to reach patient to schedule with SR RISK MANAGEMENT CONSULTANT Piper radford. Elin Trivedi [facility] 2023-07-31 18:24:47 You can schedule an appointment with me in person and we can review other options. Dr. Dias is out of office till next week. [facility] 2023-07-31 16:57:43 Images from the original note [...] lifestyle changes to get best results Off-Protocol Makslf4607/31/2023 02:47 PM Protocol Details Medication not assigned to a protocol, forward to provider. Valid encounter within last 12 months To be filled at: [facility] [address] Last Refilled: 05/29/2023 Recent Visits Date Type Provider Dept 01/24/23 Office Visit Jess Munsno MD [facility] 12/25/22 Office Visit Jess Munson MD [facility] Showing recent visits within past 540 days with a meds authorizing provider and meeting all other requirements Future Appointments Date Type Provider Dept 08/13/23 Appointment Jess Munson MD [facility] Showing future appointments within next 150 days with a meds authorizing provider and meeting all other requirements Dhara Corral MA [facility] 2023-07-25 08:53:56 Images from the original note were not included. Requested Renewals traZODone 100 mg tablet Sig: Take 1 tablet by mouth at bedtime. Disp: 90 tablet Refills: 0 Start: 07/25/2023 Class: eRX Non-formulary For: Primary insomnia Last ordered: 3 months ago (04/23/2023) by Jess Munson MD Psychiatry: Antidepressants Tuzcne0807/25/2023 08:38 AM Protocol Details Manual Review: Verify no changes in dose in the last 3 months Valid encounter within last 12 months To be filled at: [facility]/pharmacy #[id number] [facility] [address] [place] 01-24-2023 NOV N/A Sabi Corrales MA [facility] 2023-07-25 08:38:07 Images from the original note were not included. [facility] 2023-06-21 12:29:19 Patient dc home. Follow up with pcp. Verbalized understanding. ÍGUEZT Prosper Segovia RN [facility] 2023-06-21 11:23:37 Pt arrived via private car with c/o dysuria x3 days Kelly Rolon RN [facility] 2023-06-21 11:14:00 [facility] Emergency Department Note Patient Name: Lanre Bales [...] signed by: Bonita Trivedi DO 06/21/23 1216 [facility] 2023-06-12 14:39:19 Call placed to pt to discuss [employer] message. Tiff Thomason RN [facility] 2023-05-29 14:42:38 Images from the original note [...] ago (04/12/2023) by Jess Munson MD Off-Protocol Ymtioz5705/29/2023 02:20 PM Protocol Details Medication not assigned to a protocol, forward to provider. Valid encounter within last 12 months To be filled at: [address] Last Refilled: 04/12/23 Recent Visits Date Type Provider Dept 01/24/23 Office Visit Jess Munson MD [facility] Family [facility] 12/25/22 Office Visit Jess Munson MD [facility] Showing recent visits within past 540 days with a meds authorizing provider and meeting all other requirements Future Appointments Date Type Provider Dept 06/06/23 Appointment Jess Munson MD [facility] Showing future appointments within next 150 days with a meds authorizing provider and meeting all other requirements Dhara Corral MA [facility] 2023-04-23 10:14:44 Images from the original note were not included. Routed to provider for review. Unable to refill per ambulatory refill guidelines. Notes: traZODone 100 mg tablet Sig: Take 1 tablet by mouth at bedtime. Disp: 90 tablet Refills: 0 Start: 04/23/2023 Class: eRX Non-formulary For: Primary insomnia Last ordered: 2 months ago (01/24/2023) by Jess Munson MD Psychiatry: Antidepressants Gnuepd3504/23/2023 09:19 AM Protocol Details Manual Review: Verify no changes in dose in the last 3 months Valid encounter within last 12 months To be filled at: [facility]/pharmacy #6767 - [place] - [address] Last Refilled: 01/24/2023 Recent Visits Date Type Provider Dept 01/24/23 Office Visit Jess Munson MD [facility] 12/25/22 Office Visit Jess Munson MD [facility] Showing recent visits within past 540 days with a meds authorizing provider and meeting all other requirements Future Appointments Date Type Provider Dept 04/25/23 Appointment Jess Munson MD [facility] Showing future appointments within next 150 days with a meds authorizing provider and meeting all other requirements FURNITURE CASTER Dhara Corral MA [facility] 2023-04-13 17:36:40 Refill request approved after communication with patient via [employer] FURNITURE CASTER Melissa Jimenez RN [facility] 2023-04-11 15:07:24 Images from the original note [...] ago (03/02/2023) by Jess Munson MD Off-Protocol [id number]/11/2023 02:55 PM Protocol Details Medication not assigned to a protocol, forward to provider. Valid encounter within last 12 months To be filled at: [facility] - [place], [place] - [address] [place] [address] 01-24-2023 NOV 04-25-2023 FURNITURE CASTER Sabi Corrales MA [facility] 2023-04-02 12:51:41 Images from the original note were not included. Last OV: 01/24/2023 with Jess Munson Last Refill: 02/20/2023 prescribed by Jess Munson Last Labs Pertaining to Med: N/A Future Appt: Future Appointments Provider Department Dept Phone 04/25/2023 3:00 PM Jess Munson MD [facility] [place] [phone] Routed to provider for review. Unable to refill per ambulatory refill guidelines. zolpidem 5 mg tablet Sig: Take 1 tablet by mouth at bedtime as needed for Insomnia. Disp: 30 tablet Refills: 0 Start: 04/01/2023 Class: eRX For: Primary insomnia Last ordered: 1 month ago (02/20/2023) by Jess Munson MD Provider Review Required [id number]/01/2023 01:01 PM Protocol Details This refill cannot be delegated Valid encounter within last 12 months FURNITURE CASTER Melissa Jimenez RN [facility] 2023-03-02 13:44:04 Images from the original note [...] ago (01/26/2023) by Jess Munson MD Off-Protocol [id number]/02/2023 01:27 PM Protocol Details Medication not assigned to a protocol, forward to provider. Valid encounter within last 12 months To be filled at: [facility] [address] [place] [address] [address] 01-24-2023 NOV 04-25-2023 FURNITURE CASTER Sabi Corrales MA [facility] 2023-02-19 20:36:52 Images from the original note were not included. Last OV: 01/24/2023 with Jess Munson Last Refill: 01/16/2023 prescribed by Jess Munson Last Labs Pertaining to Med: N/A Future Appt: Future Appointments Provider Department Dept Phone 04/25/2023 3:00 PM Jess Munson MD [facility] [place] [phone] Routed to provider for review. Unable to refill per ambulatory refill guidelines. zolpidem 5 mg tablet Sig: Take 1 tablet by mouth at bedtime as needed for Insomnia. Disp: 30 tablet Refills: 0 Start: 02/19/2023 Class: eRX For: Primary insomnia Last ordered: 1 month ago (01/16/2023) by Jess Munson MD Provider Review Required [id number]/19/2023 03:32 PM Protocol Details This refill cannot be delegated Valid encounter within last 12 months FURNITURE CASTER Melissa Jimenez RN [facility]
[2024-01-01] MEDS ORDERED: KETOROLAC 30 MG/ML INJ ONE (20:27)
[2024-01-01] MEDS ORDERED: ONDANSETRON 4 MG/2 ML VIAL ONE (20:27)
[2024-01-01 20:35] LABS: Absolute Lymphocytes (CBC) 1.9 K/uL (0.7-4.9); Absolute Monocytes 0.5 K/uL (0.1-1.3); Absolute Neutrophil 8.1 K/uL (1.8-8.0); Basophils % 0.3 % (0-1.3); Eosinophils % 0.3 % (0-4.4); Hematocrit 41.7 % (36.0-45.0); Hemoglobin 13.9 g/dL (12.0-15.0); Lymphocytes % 17.6 % (15.3-44.8); MCH 33.6 pg (27.0-35.0); MCHC 33.4 g/dL (32.0-36.0); MCV 100.5 fL (80-100); Monocytes % 5.2 % (3.3-12.3); Neutrophils % 76.6 % (41.7-73.7); Nucleated Red Blood Cells % 0.2 % (0-0); Platelets 370 thou/uL (152-406); RBC Red Blood Cell Count 4.15 M/uL (3.86-4.86); Red Cell Distribution Width 14.9 % (12.1-15.2)
--- NOTE | 2024-01-01 20:43 | RAD REPORT ---
EXAM: Right upper quadrant ultrasound. CLINICAL HISTORY: ABD PAIN COMPARISON: None. FINDINGS: Gallbladder: Sludge and small shadowing stones. Bile ducts: No intrahepatic or extrahepatic biliary dilatation. Common bile duct measures 4 mm. Limited imaging of the liver shows no concerning finding. IMPRESSION: Gallbladder sludge and stones without acute cholecystitis findings.
[2024-01-01] MEDS ORDERED: PROMETHAZINE INJ 25 MG/ML AMP ONE (20:57)
[2024-01-01] MEDS ORDERED: FAMOTIDINE 20 MG/2 ML VIAL IV ONE (20:57)
[2024-01-01] MEDS ORDERED: NA CHLORIDE 0.9% 1,000 ML ONE (20:58)
[2024-01-01] MEDS ORDERED: MORPHINE 4 MG/ML SYR ONE (21:18)
[2024-01-01 21:56] LABS: Albumin 3.5 g/dL (3.4-5.0); Albumin/Globulin Ratio 0.9 (1.1-1.8); Anion Gap 10.2 mEq/L (5.0-15.0); Bilirubin Total 0.4 mg/dL (0.2-1.0); Globulin 3.7 g/dL (2.3-3.5); Potassium 3.2 mEq/L (3.5-5.1); Protein, Total 7.2 g/dL (6.4-8.2)
--- NOTE | 2024-01-01 22:23 | ER ---
Nurse's Notes [facility] Name: Robin Bernard Age: 28 yrs Sex: Female : 1995 Arrival Date: 01/01/2024 Time: 18:08 Bed 12 Private MD: Diagnosis: Other cholelithiasis without obstruction;Upper abdominal pain, unspecified Presentation: 12/31 19:03 Chief complaint: Patient states: N/V and stomach pain x 2 days, seen in ER yesterday ph for same complaint. Coronavirus screen: Vaccine status: Patient reports being unvaccinated. Ebola Screen: No symptoms or risks identified at this time. Initial Sepsis Screen: Does the patient meet any 2 criteria? No. Patient's initial sepsis screen is negative. Does the patient have a suspected source of infection? No. Patient's initial sepsis screen is negative. Risk Assessment: Do you want to hurt yourself or someone else? Patient reports no desire to harm self or others. Onset of symptoms was January 01, 2024. 19:03 Method Of Arrival: Ambulatory 19:03 Acuity: BOZENA 3 ph Triage Assessment: 19:06 General: Appears in no apparent distress. uncomfortable, Behavior is calm, cooperative, ph restless. Pain: Complains of pain in epigastric area, right upper quadrant and left upper quadrant. GI: Reports upper abdominal pain, nausea, vomiting. Historical: - Allergies: 19:04 Reglan; ph - PMHx: 19:04 gastritis; insomnia; Placenta Previa; ph - Immunization history:: Adult Immunizations unknown. - Infectious Disease History:: Denies. - Social history:: Smoking status: Patient denies any tobacco usage or history of. Screenin:12 [facility] ED Fall Risk Assessment (Adult) History of falling in the last 3 months, jb4 including since admission No falls in past 3 months (0 pts) Confusion or Disorientation No (0 pts) Intoxicated or Sedated No (0 pts) Impaired Gait No (0 pts) Mobility Assist Device Used No (0 pt) Altered Elimination No (0 pt) Score/Fall Risk Level 0 - 2 = Low Risk Oriented to surroundings, Maintained a safe environment. Abuse screen: Denies threats or abuse. Nutritional screening: No deficits noted. Tuberculosis screening: No symptoms or risk factors identified. Assessment: 20:00 General: Appears in no apparent distress. uncomfortable, Behavior is calm, cooperative, jb4 appropriate for age. Pain: Complains of pain in right upper quadrant and left upper quadrant Pain does not radiate. Pain currently is 10 out of 10 on a pain scale. Neuro: Level of Consciousness is awake, alert, obeys commands, Oriented to person, place, time, situation. Cardiovascular: Patient's skin is warm and dry. Respiratory: Airway is patent Respiratory effort is even, unlabored, Respiratory pattern is regular, symmetrical. GI: Abdomen is non-distended, obese. : No signs and/or symptoms were reported regarding the genitourinary system. EENT: No signs and/or symptoms were reported regarding the EENT system. Derm: Skin is intact, Skin is dry, Skin is normal, Skin temperature is warm. Musculoskeletal: Circulation, motion, and sensation intact. Range of motion: intact in all extremities. 21:12 Reassessment: Patient appears in no apparent distress at this time. Patient and/or jb4 family updated on plan of care and expected duration. Pain level reassessed. Patient is alert, oriented x 3, equal unlabored respirations, skin warm/dry/pink. 23:00 General: Appears uncomfortable, Behavior is calm, cooperative. kb3 23:00 GI: Reports nausea. kb3 23:05 General: MACHINE MAINTENANCE REPAIRER notified of pt reporting nausea. Orders received.. kb3 23:20 General: Pt reports feeling better. OK to discharge home. Instructions provided for kb3 follow up. Vital Signs: 19:04 BP 129 / 87; Pulse 98; Resp 18; Temp 98; Pulse Ox 100% on R/A; Weight 120.2 kg; Height ph 5 ft. 5 in. ; 21:12 BP 153 / 108; Pulse 47; Resp 16; Pulse Ox 99% on R/A; jb4 23:00 BP 156 / 95; Pulse 78; Resp 20; Pulse Ox 100% ; Pain 4/10; kb3 19:04 Body Mass Index 44.10 (120.20 kg, 165.1 cm) ph 23:00 Pain Scale: Adult kb3 ED Course: 18:10 Patient arrived in ED. ra3 18:12 [facility] kb 18:12 Jd Mariscal DO is Attending Physician. kb 19:04 Triage completed. ph 19:06 Arm band placed on Patient placed in waiting room, Patient notified of wait time. ph 19:57 Radiology exam delayed due to pt wants meds. ml6 20:30 CBC with Diff Sent. jb4 20:30 CMP Sent. jb4 20:30 Lipase Sent. jb4 20:30 Test, Serum Sent. jb4 20:30 Inserted saline lock: 20 gauge in right antecubital area, using aseptic technique. jb4 Blood collected. 20:30 Missed attempt(s): 20 gauge in right. Missed attempt(s): 22 gauge in left Bleeding jb4 controlled, band aid applied, catheter tip intact. 20:39 US Abdomen Limited In Process Unspecified. EDMS 21:10 Mario Solis, RN is Primary Nurse. jb4 21:12 Patient has correct armband on for positive identification. Bed in low position. Call jb4 light in reach. Side rails up X 1. Provided Education on: plan of care. 23:00 No provider procedures requiring assistance completed. IV discontinued, intact, kb3 bleeding controlled, No redness/swelling at site. Pressure dressing applied. Administered Medications: 20:35 Drug: TORadol - Ketorolac IVP 15 mg IVP once Route: IVP; Site: right antecubital; jb4 22:00 Follow up: Response: No adverse reaction; Pain is decreased kb3 20:35 Drug: Ondansetron IVP 4 mg IVP once; over 2 minutes Route: IVP; Site: right antecubital;jb4 22:00 Follow up: Response: No adverse reaction; Nausea is decreased kb3 21:10 Drug: Famotidine IVP 20 mg IVP once; dilute with 10 mL 0.9% NaCl; give over 2 minutes jb4 Route: IVP; Site: right antecubital; 22:00 Follow up: Response: No adverse reaction kb3 21:10 Drug: NS 0.9% IV 1000 ml IV at 1 bolus Per protocol; to be given as a bolus over 60 jb4 minutes Route: IV; Rate: 1 bolus; Site: right antecubital; 23:00 Follow up: Response: No adverse reaction; IV Status: Infusion continued; IV Intake: kb3 1000ml 21:10 Drug: Promethazine IVP 12.5 mg IVP once Route: IVP; Site: right antecubital; jb4 22:00 Follow up: Response: No adverse reaction; Nausea is decreased kb3 23:18 Drug: Ondansetron PO 4 mg PO once Route: PO; kb3 23:27 Follow up: Response: No adverse reaction; Nausea is decreased kb3 Medication: 21:12 VIS not applicable for this client. jb4 Intake: 23:00 IV: 1000ml; Total: 1000ml. kb3 Outcome: 22:23 Discharge ordered by MD. kb 23:20 Discharged to home ambulatory, with family, kb3 23:20 Condition: stable kb3 23:20 Discharge instructions given to patient, family, Instructed on discharge instructions, follow up and referral plans. medication usage, Demonstrated understanding of instructions, follow-up care, medications, Prescriptions given X 3, 23:27 Patient left the ED. kb3 Signatures: Dispatcher [employer] EDMS Katie Wade, SHREDDED FILLER CUTTER OPERATOR-C SHREDDED FILLER CUTTER OPERATOR-Bessy Tracey RN RN ph Bryson, James, RN RN jb4 Danay Humphreys RN RN will3 Holli Madera ml6 Zandra Jones 3
--- NOTE | 2024-01-01 22:23 | EDPHYS ---
Physician Documentation [facility] Name: Robin Bernard Age: 28 yrs Sex: Female : 1995 Arrival Date: 01/01/2024 Time: 18:08 Bed 12 Private MD: ED Physician Jd Mariscal HPI: 12/31 22:24 This 28 yrs old Black Female presents to ER via Ambulatory with complaints of kb Nausea/Vomiting - Stomach pain. 22:24 Patient is a 28-year-old female who presents for upper abdominal pain, nausea and kb vomiting that started 3 days ago. Denies fever or diarrhea. States she was seen here yesterday and sent home but symptoms have persisted.. Historical: - Allergies: 19:04 Reglan; ph - PMHx: 19:04 gastritis; insomnia; Placenta Previa; ph - Immunization history:: Adult Immunizations unknown. - Infectious Disease History:: Denies. - Social history:: Smoking status: Patient denies any tobacco usage or history of. ROS: 22:05 Constitutional: As per HPI kb Exam: 22:05 Constitutional: This is a well developed, well nourished patient who is awake, alert, kb and in no acute distress. Head/Face: Normocephalic, atraumatic. ENT: Moist Mucous membranes Cardiovascular: Regular rate Respiratory: Respirations even and unlabored. No increased work of breathing. Talking in full sentences Skin: Warm, dry with normal turgor. Normal color. MS/ Extremity: Pulses equal, no cyanosis. Neurovascular intact. Full, normal range of motion. Neuro: Awake and alert, GCS 15, oriented to person, place, time, and situation. 22:05 Abdomen/GI: Inspection: abdomen appears normal, Bowel sounds: normal, Palpation: soft, in all quadrants, moderate abdominal tenderness, in the right upper quadrant and left upper quadrant, Vital Signs: 19:04 BP 129 / 87; Pulse 98; Resp 18; Temp 98; Pulse Ox 100% on R/A; Weight 120.2 kg; Height ph 5 ft. 5 in. ; 21:12 BP 153 / 108; Pulse 47; Resp 16; Pulse Ox 99% on R/A; jb4 23:00 BP 156 / 95; Pulse 78; Resp 20; Pulse Ox 100% ; Pain 4/10; kb3 19:04 Body Mass Index 44.10 (120.20 kg, 165.1 cm) ph 23:00 Pain Scale: Adult kb3 MDM: 18:13 Medical Screening Exam initiated kb 22:22 Differential diagnosis: cholecystitis, Cholelithiasis, gastritis. Data reviewed: vital kb signs, nurses notes. Counseling: I had a detailed discussion with the patient and/or guardian regarding the historical points, exam findings, and any diagnostic results supporting the discharge/admit diagnosis, lab results, radiology results, the need for outpatient follow up, a general surgeon, a manager foreign, to return to the emergency department if symptoms worsen or persist or if there are any questions or concerns that arise at home. 12/31 19:11 Order name: CBC with Diff; Complete Time: 20:39 kb 12/31 19:11 Order name: CMP; Complete Time: 22:03 kb 12/31 19:11 Order name: Lipase; Complete Time: 22:03 kb 12/31 20:30 Order name: Test, Serum; Complete Time: 21:51 jb4 12/31 19:11 Order name: US Abdomen Limited; Complete Time: 20:51 kb 12/31 19:11 Order name: IV Saline Lock; Complete Time: 20:30 kb 12/31 19:11 Order name: Labs collected and sent; Complete Time: 20:30 kb 12/31 20:41 Order name: Misc. Order: RECOLLECT LAVENDER TOP; Complete Time: 21:10 rv1 Administered Medications: 20:35 Drug: TORadol - Ketorolac IVP 15 mg IVP once Route: IVP; Site: right antecubital; jb4 22:00 Follow up: Response: No adverse reaction; Pain is decreased kb3 20:35 Drug: Ondansetron IVP 4 mg IVP once; over 2 minutes Route: IVP; Site: right antecubital;jb4 22:00 Follow up: Response: No adverse reaction; Nausea is decreased kb3 21:10 Drug: Famotidine IVP 20 mg IVP once; dilute with 10 mL 0.9% NaCl; give over 2 minutes jb4 Route: IVP; Site: right antecubital; 22:00 Follow up: Response: No adverse reaction kb3 21:10 Drug: NS 0.9% IV 1000 ml IV at 1 bolus Per protocol; to be given as a bolus over 60 jb4 minutes Route: IV; Rate: 1 bolus; Site: right antecubital; 23:00 Follow up: Response: No adverse reaction; IV Status: Infusion continued; IV Intake: kb3 1000ml 21:10 Drug: Promethazine IVP 12.5 mg IVP once Route: IVP; Site: right antecubital; jb4 22:00 Follow up: Response: No adverse reaction; Nausea is decreased kb3 23:18 Drug: Ondansetron PO 4 mg PO once Route: PO; kb3 23:27 Follow up: Response: No adverse reaction; Nausea is decreased kb3 Disposition: 20:49 I was immediately available on-site in the Emergency Department for consultation in the ms3 care of the patient. Disposition Summary: 01/01/24 22:23 Discharge Ordered Notes: Location: Home kb Condition: Stable kb Diagnosis - Other cholelithiasis without obstruction kb - Upper abdominal pain, unspecified kb Followup: kb - With: Emergency Department - When: As needed - Reason: Worsening of condition Followup: kb - With: Private Physician - When: 2 - 3 days - Reason: Recheck today's complaints, Continuance of care, Re-evaluation by your physician Discharge Instructions: - Discharge Summary Sheet kb - Cholelithiasis, [id number] kb - Abdominal Pain, Adult, [id number] kb Forms: - Medication Reconciliation Form kb - Antibiotic Education kb - Prescription Opioid Use kb - Patient Portal Instructions kb - Leadership Thank You Letter kb Prescriptions: - Protonix 40 mg Oral Tablet - take 1 tablet ORAL route once daily; 30 tablet; Refills: 0, Product Selection kb Permitted - Zofran 4 mg Oral tablet - take 1 tablet ORAL route every 6 hours As needed; 12 tablet; Refills: 0, kb Product Selection Permitted - dicyclomine 20 mg Oral tablet - take 1 tablet ORAL route 4 times per day As needed; 20 tablet; Refills: 0, kb Product Selection Permitted Signatures: Dispatcher [employer] Katie Talamantes FNP-C FNP-Bessy Tracey RN RN Mario Solis RN RN jb4 Jd Mariscal DO DO ms3 Karina Vasquez RN RN vc1 Danay Humphreys RN RN kb3 Stacey Ash rv1 Corrections: (The following items were deleted from the chart) 19:11 19:11 Abdomen Limited+US.RAD.BRZ ordered. EDMS EDMS 21:37 19:11 Test, Urine+UC.LAB.BRZ ordered. EDMS EDMS
[2024-01-01] MEDS ORDERED: ONDANSETRON 4 MG (ODT) TAB ONE (23:04)
[2024-01-01 23:57] VITALS: TEMP 98
[2024-01-02 00:18] VITALS: BP 156/95; O2SAT 100
== END 2024-01-01 23:27 | disposition home or self-care (01) ==
LOC: ER 18:08
DX: K80.80 Other cholelithiasis without obstruction (principal)
CPT/HCPCS: 85025; 36415; 84703; 83690; 80053; 76705; J2550; Q0162; J2405; J7030

== ENCOUNTER 2024-01-30 01:09 | Emergency (ER) | payer OTHER ==
--- OUTSIDE RECORDS SUMMARY | 2024-01-30 01:17 | XMS REPORT | Continuity of Care Document ---
Author Name Unknown Address [address] [facility]. [address] [place] [address] [facility] Address [address] [facility] [address] [place] [address] Care Team Providers Care It Security Administrator Name Role Phone Jess Munson MD Primary Care Physician + [phone] JESS MUNSON Attending Clinician Unavailab JESS Killian Attending Clinician Unavailab VANESSA Keene Attending Clinician Unavailable VANESSA LEYVA Attending Clinician Unavailable EVA BRYAN Attending Clinician Unavailable Eva Bryan MD Attending Clinician [phone] Jess Munson MD Attending Clinician [phone] TIANNA MEI Attending Clinician Unavailable TIANNA MEI Attending Clinician Unavailable CARO BAUER Attending Clinician Unavailable CARO BAUER Attending Clinician Unavailable Caro Bauer MD Attending Clinician +[phone] Yann Ordonez Attending Clinician +[phone] Yisel Hart MD Attending Clinician [phone] YISEL HART Attending Clinician Unavailable KONRAD ORDOÑEZ Attending Clinician Unavailab KONRAD Holguin Attending Clinician Unavailab merly Ordoñez WATER GAS OPERATOR, Konrad Attending Clinician [phone] Tianna oYung Attending Clinician +[phone] ISAAC SHAY Attending Clinician Unavailable Vanessa Leyva MD Attending Clinician [phone] Jose De Jesus Medina MD Attending Clinician [phone] JOSE DE JESUS MEDINA Attending Clinician Unavailable JOSE DE JESUS MEDINA Attending Clinician Unavailable 2, [facility] Attending Clinician Unavailable KELLY SIMMS Attending Clinician UnavailKELLY Ferrera Attending Clinician Unavailelliott Simms MD, Kelly Tolentino Attending Clinician [phone] TIFF ISABEL Attending Clinician Unavailable TIFF ISABEL Attending Clinician Unavailable Maame WATER GAS OPERATOR, Tiff Attending Clinician [phone], [facility] Attending Clinician Unavailable BONITA TRIVEDI Attending Clinician Unavailab Bonita Hernandez DO Attending Clinician + [phone] Carlos Ibrahim MD Attending Clinician [phone] Doctor Unassigned, [place] Attending Clinician U NICOLE Aparicio Attending Clinician UnavailNICOLE Sellers Attending Clinician Unavaila KAMILA Barrios Attending Clinician Unavailable JACINTA VOSS Attending Clinician Unavaila susu Provider, [facility] Tem Attending Clinician Henrietta vailable Meche Richard Attending Clinician + Jacinta Voss CNM Attending Clinician [phone] MECHE ROBERSON Attending Clinician Unavail able Rodrick Carlisle Attending Clinician Unava DREW Ren Attending Clinician Unavailable RODRICK PETE Attending Clinician Unavailab Wilver Weinstein MD Attending Clinician [phone] LOVE DOWELL Attending Clinician UnavailLOVE Gonzalez Attending Clinician UnavailBRENDA Pedro Attending Clinician Unavailable Brenda Velásquez MD Attending Clinician [phone] Richard PAC, K Maame Attending Clinician [phone] Ultrasound, Ang-M[facility] Attending Clinician UnavailVinh Wong MD Attending Clinician [phone] IVNH MONCADA Attending Clinician Unavailable VINH MONCADA Attending Clinician Unavailable Juan BONDIvanna Attending Clinician [phone] Maddie Romeo MD Attending Clinician +[phone] MADDIE ROMEO Attending Clinician Unavailable Lab, [facility] Attending Clinician Unavailable Chema STERLING Alayna S Attending Clinician [phone] ANGUS DWYER Attending Clinician Unavailable Angus Dwyer DO Attending Clinician +[phone] Abdullahi Gomez MD Attending Clinician +[phone] Foreign Calvillo Attending Clinician + [phone] Edith Terry MD Attending Clinician [phone] EDITH TERRY Attending Clinician Unavailable EDITH TERRY Attending Clinician Unavailable EVA BRYAN Admitting Clinician Unavailable Eva Bryan MD Admitting Clinician +[phone] YISEL HART Admitting Clinician Unavailable Yisel Hart MD Admitting Clinician +[phone] KELLY SIMMS Admitting Clinician UnavailVANESSA Garza Admitting Clinician Unavailable Vanessa Leyva MD Admitting Clinician [phone] BRENDA VELÁSQUEZ Admitting Clinician Unavailable Brenda Velásquez MD Admitting Clinician +[phone] Edith Terry MD Admitting Clinician +[phone] EDITH TERRY Admitting Clinician Unavailable Payers Payer Name Policy Type Policy Number Effective Date Expirati on Date Source [place] [employer] [id number] 2021 00:00:00 [employer] [id number] 2021 00:00:00 Problems Condition Name Condition Details Condition Category Status Onset Date Resolution Date Last Treatment Date Treating Clinician Comments Source [place] r sludge Gall[place] r sludge Disease Active 2023-02 00:00: 00 [facility] Hematemesi s with nausea Hematemesi s with nausea Disease Active 2023-02 0-03 00:00: 00 [facility] Coffee ground emesis Coffee ground emesis Disease Active 2023-02 0-03 00:00: 00 [facility] Abdominal pain, epigastric Abdominal pain, epigastric Disease Active 2023-02 0-03 00:00: 00 [facility] Papanicola ou smear of cervix with low grade squamous intraepith elial lesion (LGSIL) Papanicola ou smear of cervix with low grade squamous intraepith elial lesion (LGSIL) Disease Active 5-18 00:00: 00 Overview: Formattin g of this note might be different from the original. LGSIL in 2021 needs repeat pap smear in 2022. 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 Disease Active 4-12 00:00: 00 [facility] Tetrahydro cannabinol (THC) use disorder, mild, abuse Tetrahydro cannabinol (THC) use disorder, mild, abuse Disease Resolve d 5-10 00:00: 00 2022-12-25 00:00:00 2022-12-25 13:59:24 [facility] Chronic hypertensi on with superimpos ed preeclamps ia Chronic hypertensi on with superimpos ed preeclamps ia Disease Resolve d 2021-02 0-08 00:00: 00 2022-01-20 00:00:00 2022-01-20 14:17:40 [facility] Supervisio n of high risk , antepartum Supervisio n of high risk , antepartum Disease Resolve d 2022-0 5-05 00:00: 00 2022-01-20 00:00:00 2022-01-20 14:17:35 [facility] GBS (group B Streptococ cus carrier), +RV culture, 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 Will need ABX in labor. [facility] Single liveborn, born in hospital, delivered by vaginal delivery Single liveborn, born in hospital, delivered by vaginal delivery Disease Resolve d 2021-02 0-09 00:00: 00 2021-12-22 00:00:00 2021-12-22 07:58:27 [facility] Morbid obesity with body mass index of 40.0-49.9 Morbid obesity with body mass index of 40.0-49.9 Disease Resolve d 2021-02 0-08 00:00: 00 2021-12-22 00:00:00 2021-12-22 15:59:51 [facility] Severe pre-eclamp shena in third trimester Severe pre-eclamp shena in third trimester Disease Resolve d 2021-02 0-08 00:00: 00 2021-12-22 00:00:00 2021-12-22 07:58:22 [facility] Elevated blood pressure reading without diagnosis of hypertensi on Elevated blood pressure reading without diagnosis of hypertensi on Disease Resolve d 9-08 00:00: 00 2021-12-22 00:00:00 2021-12-22 07:58:07 [facility] Proteinuri a affecting in third trimester Proteinuri a affecting in third trimester Disease Resolve d 9-08 00:00: 00 2021-12-22 00:00:00 2021-12-22 07:58:17 [facility] Intractabl e nausea and vomiting Intractabl e nausea and vomiting Disease Resolve d 7-05 00:00: 00 2021-12-22 00:00:00 2021-12-22 07:58:09 [facility] Urinary tract infection without hematuria, site unspecifie d Urinary tract infection without hematuria, site unspecifie d Disease Resolve d 2021-0 6-02 00:00: 00 2021-12-22 00:00:00 2021-12-22 07:57:57 [facility] Nausea and vomiting during Nausea and vomiting during Disease Resolve d 2021-0 5-10 00:00: 00 2021-12-22 00:00:00 2021-12-22 07:58:11 [facility] Nausea and vomiting during Nausea and vomiting during Disease Resolve d 2021-0 5-10 00:00: 00 2021-12-22 00:00:00 2021-12-22 07:58:11 [facility] Primigravi da in second trimester Primigravi da in second trimester Disease Resolve d 2021-0 5-05 00:00: 00 2021-12-22 00:00:00 2021-12-22 07:58:15 [facility] Obesity in Obesity in Disease Resolve d 2021-0 5-05 00:00: 00 2021-12-22 00:00:00 2021-12-22 07:58:13 [facility] Chronic hypertensi on affecting Chronic hypertensi on affecting Disease Resolve d 2021-0 4-24 00:00: 00 2021-12-22 00:00:00 2021-12-22 07:58:04 [facility] BMI 40.0-44.9, adult BMI 40.0-44.9, adult Disease Resolve d 2021-0 4-23 00:00: 00 2021-12-22 00:00:00 2021-12-22 15:59:13 [facility] 15 weeks gestation of 15 weeks gestation of Disease Resolve d 2021-0 4-12 00:00: 00 2021-12-22 00:00:00 2021-12-22 07:58:01 [facility] Hyperemesi s Hyperemesi s Disease Resolve d 2021-0 5-10 00:00: 00 2021-11-26 00:00:00 2021-11-26 09:09:11 [facility] Hyperbilir ubinemia Hyperbilir ubinemia Disease Resolve d 0 4-25 00:00: 00 2021-11-26 00:00:00 2021-11-26 09:09:06 [facility] Hypomagnes emia Hypomagnes emia Disease Resolve d 0 4-25 00:00: 00 2021-11-26 00:00:00 2021-11-26 09:09:05 [facility] Hypocalcem ia Hypocalcem ia Disease Resolve d 0 4-25 00:00: 00 2021-11-26 00:00:00 2021-11-26 09:09:03 [facility] Hypokalemi a Hypokalemi a Disease Resolve d 0 4-12 00:00: 00 2021-11-26 00:00:00 2021-11-26 09:09:30 [facility] Hyponatrem ia Hyponatrem ia Disease Resolve d 0 4-12 00:00: 00 2021-11-26 00:00:00 2021-11-26 09:09:33 [facility] Tachycardi a Tachycardi a Disease Resolve d 0 4-12 00:00: 00 2021-11-26 00:00:00 2021-11-26 09:09:30 [facility] Nausea and vomiting in prior to 22 weeks gestation Nausea and vomiting in prior to 22 weeks gestation Disease Resolve d 2021-0 4-12 00:00: 00 2021-11-26 00:00:00 2021-11-26 09:09:43 [facility] Nausea and vomiting in prior to 22 weeks gestation Nausea and vomiting in prior to 22 weeks gestation Disease Resolve d 2021-0 4-12 00:00: 00 2021-11-26 00:00:00 2021-11-26 09:09:43 [facility] Allergies, Adverse Reactions, Alerts Allergy Name Allergy Type Status Severity Reaction(s) Onset Date Inactive Date Treating Clinician Comments Source Egg Propensi ty to adverse reaction s Active Nausea and/or Vomiting - 00:00: 00 [facility] EGG DRUG INGREDI Active N/V - 00:00: 00 [facility] Metoclop ramide Drug Allergy Active Extra pyramidal effects - 00:00: 00 [facility] METOCLOP RAMIDE DRUG INGREDI Active Med EP Effects - 00:00: 00 [facility] Social History Social Habit Start Date Stop Date Quantity Comments Source ASSERTION 2021-03-26 00:00:00 [facility] Sexual orientation U [facility] History of tobacco use Current smoker [facility] Alcoholic beverage intake 2024-01-22 00:00:00 2024-01-22 00:00:00 Current drinker of alcohol (finding) [facility] Alcohol Comment 2023-11-26 00:00:00 2023-11-26 00:00:00 ocassional [facility] Tobacco use and exposure 2023-11-26 00:00:00 2023-11-26 00:00:00 Smokeless tobacco non-user [facility] History of Social function 2023-11-22 00:00:00 2023-11-22 00:00:00 [facility] Alcohol intake 2023-06-21 00:00:00 2023-06-21 00:00:00 Ex-drinker (finding) [facility] Exposure to SARS-CoV-2 (event) 2022-01-10 00:00:00 2022-01-20 14:04:00 Not sure [facility] Tobacco Comment 2021-09-15 00:00:00 2021-09-15 00:00:00 marijuana,no nicotine stopped for [facility] Sex assigned at 1995 00:00:00 1995 00:00:00 [facility] Smoking Status Start Date Stop Date Source Ex-smoker 2023-11-26 00:00:00 2023-11-26 00:00:00 U [facility] Medications Ordered Medication Name Filled Medication Name Start Date Stop Date Current Medication? Ordering Clinician Indication Dosage Frequency Signature (SIG) Comments Components Source lactated ringers IV infusion 1,000 mL 2023-02 18:30: 00 Yes 1000mL at 50 mL/hr, 1,000 mL, IV Infusion, CONTINUOUS , Starting on Sun01/29/24 at 1230, Until Discontinu ed, Routine, PACU [facility] HYDROcodone -acetaminop hen (NORCO 5) tablet 1 tablet 2023-02 18:30: 00 01-28 19:00 :00 No 1{tbl} 1 tablet, Oral, ONCE, 1 dose, On Sun01/29/24 at 1230, Routine, PACU [facility] HYDROmorphO ne (DILAUDID) injection 0.2 mg 2023-02 18:19: 17 Yes .2mg 0.2 mg, Slow IV Push, Q5MIN PRN, 10 doses, Starting on Sun01/29/24 at 1219, Until Discontinu ed, Routine, Pain (scale 7-10), PACU, Is this medication approved by a Faculty level provider? 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 Restricted medication : RADHA EVANS [facility] FENTanyl (PF) (SUBLIMAZE) injection 25 mcg 2023-02 18:19: 17 Yes 25ug 25 mcg, Slow IV Push, Q5MIN PRN, 4 doses, Starting on Sun01/29/24 at 1219, Until Discontinu ed, Routine, Pain Scale 4-6, PACU [facility] ondansetron (ZOFRAN (PF)) injection 4 mg 2023-02 18:19: 17 Yes 4mg 4 mg, Slow IV Push, PRN, 1 dose, Starting on Sun01/29/24 at 1219, Until Discontinu ed, Administer over 2-5 Minutes, 2 mL, PACU [facility] acetaminoph en (TYLENOL) 325 mg tablet 2023-02 00:00: 00 02-05 05:59 :00 Yes [id number] 650mg Take 2 tablets by mouth every 6 (six) hours for 7 days. [facility] ibuprofen 800 mg tablet 2023-02 00:00: 00 02-05 05:59 :00 Yes [id number] 800mg Take 1 tablet by mouth every 6 (six) hours for 7 days. [facility] traMADoL 50 mg tablet 2023-02 00:00: 00 02-05 05:59 :00 Yes [id number] 50mg Take 1 tablet by mouth every 8 (eight) hours for 7 days. Indication s: acute pain, chronic pain [facility] HYDROcodone -acetaminop hen 5-325 mg tablet 2023-02 00:00: 00 02-05 05:59 :00 Yes [id number] 1{tbl} Take 1 tablet by mouth every 6 (six) hours as needed for Pain (scale 7-10) for up to 7 days. Indication s: acute pain [facility] phentermine 37.5 mg tablet 2023-02 00:00: 00 Yes [id number] 104 37.5mg Take 1 tablet by mouth daily with breakfast. [facility] zolpidem 5 mg tablet 2023-02 00:00: 00 Yes [id number] 5mg Take 1 tablet by mouth at bedtime as needed for Insomnia. [facility] ondansetron 8 mg tablet 2023-02 00:00: 00 Yes [id number] 8mg Take 1 tablet by mouth every 8 (eight) hours as needed for Nausea and Vomiting (N/V). [facility] ketorolac (TORADOL) injection 30 mg 2023-02 11:30: 00 01-11 10:39 :00 No 30mg 30 mg, Slow IV Push, ONCE, 1 dose, On 01/12/24 at 0530, Routine [facility] fentanyl PF (SUBLIMAZE (PF)) injection 50 mcg 2023-02 11:15: 00 01-11 11:15 :00 No 50ug 50 mcg, Slow IV Push, ONCE, 1 dose, On 01/12/24 at 0515, Routine [facility] ondansetron (ZOFRAN (PF)) injection 4 mg 2023-02 10:30: 00 01-11 10:29 :00 No 4mg 4 mg, Slow IV Push, ONCE, 1 dose, On 01/12/24 at 0430, Administer over 2-5 Minutes, 2 mL [facility] fentanyl PF (SUBLIMAZE (PF)) injection 50 mcg 2023-02 10:30: 00 01-11 10:40 :00 No 50ug 50 mcg, Slow IV Push, ONCE, 1 dose, On 01/12/24 at 0430, RACHAEL [facility] ondansetron (ZOFRAN (PF)) injection 4 mg 2023-02 10:15: 00 01-11 10:07 :00 No 4mg 4 mg, Slow IV Push, ONCE, 1 dose, On 01/12/24 at 0415, Administer over 2-5 Minutes, 2 mL [facility] traMADoL (ULTRAM) 50 mg tablet 2023-02 00:00: 00 Yes [id number] 50mg Take 1 tablet by mouth every 6 (six) hours as needed for Pain (scale 7-10). Indication s: acute pain [facility] dicyclomine 20 mg tablet 2023-02 00:00: 00 Yes [id number] 20mg Take 1 tablet by mouth every 6 (six) hours as needed for Abdominal pain. [facility] ondansetron (ZOFRAN) 4 mg tablet 2023-02 00:00: 00 01-27 00:00 :00 No [id number] 4mg Take 1 tablet by mouth every 8 (eight) hours as needed for Nausea and Vomiting (N/V). [facility] ondansetron 8 mg tablet 2023-02 00:00: 00 01-24 00:00 :00 No [id number] 8mg Take 1 tablet by mouth every 8 (eight) hours as needed for Nausea and Vomiting (N/V). [facility] ondansetron 4 mg disintegrat ing tablet 2023-02 00:00: 00 01-10 00:00 :00 No [id number] 4mg Take 1 tablet by mouth every 8 (eight) hours as needed for Nausea and Vomiting (N/V). [facility] phentermine 37.5 mg tablet 2023-02 00:00: 00 01-24 00:00 :00 No [id number] 104 37.5mg Take 1 tablet by mouth daily with breakfast. [facility] zolpidem 5 mg tablet 2023-02 00:00: 01-24 00:00 :00 No [id number] 5mg Take 1 tablet by mouth at bedtime as needed for Insomnia. [facility] ondansetron 4 mg disintegrat ing tablet 2023-02 00:00: 00 01-09 00:00 :00 No [id number] 4mg Take 1 tablet by mouth every 8 (eight) hours as needed for Nausea and Vomiting (N/V). [facility] ondansetron 4 mg tablet 2023-02 00:00: 00 01-10 00:00 :00 No [id number] 4mg Take 1 tablet by mouth every 8 (eight) hours as needed for Nausea and Vomiting (N/V). [facility] TRAZODONE 100 mg tablet 2023-02 00:00: 00 Yes [id number] 100mg TAKE 1 TABLET BY MOUTH EVERYDAY AT BEDTIME [facility] pantoprazol e 40 mg EC tablet 11-18 00:00: 00 Yes [id number] 40mg Take 1 tablet by mouth in the morning. [facility] phentermine 37.5 mg tablet 11-18 00:00: 00 12-24 00:00 :00 No [id number] 104 37.5mg Take 1 tablet by mouth daily with breakfast. [facility] zolpidem 5 mg tablet 11-18 00:00: 00 12-24 00:00 :00 No [id number] 5mg Take 1 tablet by mouth at bedtime as needed for Insomnia. [facility] proMETHazin e (PHENERGAN) 12.5 mg in NS 50 mL IV piggyback (CNR) 11-17 15:30: 00 11-17 15:49 :00 No 12.5mg 12.5 mg, IV Piggyback, at 200 mL/hr Administer over 15 Minutes, ONCE, 1 dose, On Sun11/18/23 at 1030, [facility] morpHINE (4 mg/mL) injection 4 mg 11-17 15:30: 00 11-17 15:34 :00 No 4mg 4 mg, Slow IV Push, ONCE, 1 dose, On Sun11/18/23 at 1030, STAT [facility] ketorolac (TORADOL) injection 30 mg 11-17 15:00: 00 11-17 14:09 :00 No 30mg 30 mg, Slow IV Push, ONCE, 1 dose, On Sun11/18/23 at 1000, [facility] famotidine (PEPCID (PF)) injection 20 mg 11-17 14:15: 00 11-17 14:09 :00 No 20mg 20 mg, Slow IV Push, ONCE, 1 dose, On Sun11/18/23 at 0915, [facility] iopamidol (ISOVUE 370-500 mL) injection 100 mL 11-17 13:30: 00 11-17 13:45 :00 No [id number] 100mL 100 mL, Intravenou s, ONCE, 1 dose, On Sun11/18/23 at 0845, Routine [facility] NaCl 0.9% (NS) IV infusion 1,000 mL 11-17 13:00: 00 11-17 15:15 :00 No 1000mL at 999 mL/hr, Intravenou s, ONCE, 1 dose, On Sun11/18/23 at 0800, [facility] proMETHazin e (PHENERGAN) 12.5 mg in NS 50 mL IV piggyback (CNR) 11-17 12:30: 00 11-17 13:33 :00 No 12.5mg 12.5 mg, IV Piggyback, at 200 mL/hr Administer over 15 Minutes, ONCE, 1 dose, On 11/18/23 at 0730, RACHAEL [facility] fentanyl PF (SUBLIMAZE (PF)) injection 100 mcg 11-17 11:15: 00 11-17 11:16 :00 No 100ug 100 mcg, Slow IV Push, ONCE, 1 dose, On 11/18/23 at 0615, Routine [facility] ondansetron (ZOFRAN (PF)) injection 8 mg 11-17 11:00: 00 11-17 11:10 :00 No 8mg 8 mg, Slow IV Push, ONCE, 1 dose, On 11/18/23 at 0600, [facility] sodium chloride (NS) injection 5 mL 11-17 10:51: 45 Yes 5mL 5 mL, Intravenou s, PRN, Starting on 11/18/23 at 0551, Until Discontinu ed, Routine, IV line flushing [facility] proMETHazin e 25 mg tablet 11-17 00:00: 00 Yes [id number] 25mg Take 1 tablet by mouth every 6 (six) hours as needed for Nausea and Vomiting (N/V). [facility] traMADoL 50 mg tablet 11-17 00:00: 00 01-28 00:00 :00 No [id number] 50mg Take 1 tablet by mouth every 6 (six) hours as needed (pain). Indication s: acute pain [facility] zolpidem 5 mg tablet 11-17 00:00: 00 11-17 00:00 :00 No [id number] 5mg Take 1 tablet by mouth at bedtime as needed for Insomnia. [facility] KCL (KLOR-CON M20) tablet 20 mEq 11-07 19:30: 00 11-07 19:56 :00 No 20meq 20 mEq, Oral, ONCE, 1 dose, [facility] [place] 11[facility]08/23 [facility] 1430[facility]GAN) 12.5 mg in NS 50 mL IV piggyback (CNR) 11-07 17:45: 00 11-07 18:53 :00 No 12.5mg 12.5 mg, IV Piggyback, at 200 mL/hr Administer over 15 Minutes, ONCE, 1 dose, On Gabby 11/08/23 at 1245, [facility] ondansetron (ZOFRAN (PF)) injection 4 mg 11-07 16:30: 00 11-07 16:38 :00 No 4mg 4 mg, Slow IV Push, ONCE, 1 dose, On Gabby 11/08/23 at 1130, [facility] famotidine (PEPCID (PF)) injection 20 mg 11-07 16:30: 00 11-07 16:38 :00 No 20mg 20 mg, Slow IV Push, ONCE, 1 dose, On Gabby 11/08/23 at 1130, [facility] NaCl 0.9% (NS) bolus infusion 1,000 mL 11-07 16:30: 00 11-07 19:53 :00 No 1000mL at 999 mL/hr, 1,000 mL, IV Infusion, ONCE, 1 dose, On Gabby 11/08/23 at 1130, [facility] morpHINE (4 mg/mL) injection 4 mg 11-07 15:45: 00 11-07 18:39 :00 No 4mg 4 mg, Slow IV Push, ONCE, 1 dose, On Gabby 11/08/23 at 1045, [facility] ondansetron 4 mg disintegrat ing tablet 11-07 00:00: 00 11-12 04:59 :00 Yes [id number] 4mg Take 1 tablet by mouth every 8 (eight) hours as needed for Nausea and Vomiting (N/V) for up to 4 days. [facility] zolpidem 5 mg tablet 830 00:00: 00 11-15 00:00 :00 No [id number] 5mg Take 1 tablet by mouth at bedtime as needed for Insomnia. [facility] ergocalcife rol, vitamin d2, (VITAMIN D2) 1,250 mcg (50,000 unit) capsule 10-15 00:00: 00 Yes [id number] 41113C Take 1 capsule by mouth weekly. [facility] phentermine 37.5 mg tablet 10-15 00:00: 00 11-18 00:00 :00 No [id number] 37.5mg Take 1 tablet by mouth daily with breakfast. [facility] ergocalcife rol, vitamin d2, (VITAMIN D2) 1,250 mcg (50,000 unit) capsule 814 00:00: 00 10-14 00:00 :00 No [id number] 06253L Take 1 capsule by mouth weekly. [facility] zolpidem 5 mg tablet 09-12 00:00: 00 10-15 00:00 :00 No [id number] 5mg Take 1 tablet by mouth at bedtime as needed for Insomnia. [facility] phentermine 37.5 mg tablet 725 00:00: 00 10-14 00:00 :00 No [id number] 37.5mg Take 1 tablet by mouth daily with breakfast. [facility] phentermine 37.5 mg tablet 6-17 00:00: 00 09-11 00:00 :00 No [id number] 37.5mg Take 1 tablet by mouth daily with breakfast. [facility] zolpidem 5 mg tablet 0 6-17 00:00: 00 09-11 00:00 :00 No [id number] 5mg Take 1 tablet by mouth at bedtime as needed for Insomnia. [facility] traZODone 100 mg tablet 0 6-05 00:00: 00 12-09 00:00 :00 No [id number] 100mg Take 1 tablet by mouth at bedtime. [facility] acetaminoph en (TYLENOL) tablet 650 mg 5-02 17:30: 00 06-20 17:25 :00 No 650mg 650 mg, Oral, ONCE, 1 dose, On Sun06/21/23 at 1230, RACHAEL [facility] sulfamethox azole-trime thoprim 800-160 mg per tablet 5- 00:00: 00 08-05 00:00 :00 No [id number] 1{tbl} Take 1 tablet by mouth every 12 (twelve) hours. [facility] phentermine 37.5 mg tablet 4-09 00:00: 00 08-05 00:00 :00 No [id number] 37.5mg Take 1 tablet by mouth daily with breakfast. [facility] traZODone 100 mg tablet 3-04 00:00: 00 07-24 00:00 :00 No [id number] 100mg Take 1 tablet by mouth at bedtime. [facility] phentermine 37.5 mg tablet 2- 00:00: 00 05-28 00:00 :00 No [id number] 37.5mg Take 1 tablet by mouth daily with breakfast. [facility] zolpidem 5 mg tablet 2-15 00:00: 00 08-05 00:00 :00 No [id number] 5mg Take 1 tablet by mouth at bedtime as needed for Insomnia. [facility] phentermine 37.5 mg tablet 1-12 00:00: 00 04-11 00:00 :00 No [id number] 37.5mg Take 1 tablet by mouth daily with breakfast. [facility] zolpidem 5 mg tablet 0 1-02 00:00: 00 04-05 00:00 :00 No [id number] 5mg Take 1 tablet by mouth at bedtime as needed for Insomnia. [facility] phentermine 37.5 mg tablet 2022-02 2-08 00:00: 00 03-02 00:00 :00 No [id number] 37.5mg Take 1 tablet by mouth daily with breakfast. [facility] traZODone 100 mg tablet 2022-02 2-06 00:00: 00 04-22 00:00 :00 No [id number] 100mg Take 1 tablet by mouth at bedtime. [facility] phentermine 37.5 mg tablet 2022-02 00:00: 00 01-26 00:00 :00 No [id number] 37.5mg Take 1 tablet by mouth daily with breakfast. [facility] zolpidem 5 mg tablet 2022-02 00:00: 00 02-19 00:00 :00 No [id number] 5mg Take 1 tablet by mouth at bedtime as needed for Insomnia. [facility] TRAZODONE 50 mg tablet 2022-02 00:00: 00 01-24 00:00 :00 No [id number] 50mg TAKE 1 TABLET BY MOUTH EVERYDAY AT BEDTIME [facility] ramelteon 8 mg tablet 2022-02 00:00: 00 01-24 00:00 :00 No [id number] 8mg Take 1 tablet by mouth at bedtime. [facility] Doxepin 6 mg Tab 2022-02 00:00: 00 01-04 00:00 :00 No [id number] 6mg Take 6 mg by mouth at bedtime. [facility] ergocalcife rol, vitamin d2, (VITAMIN D2) 1,250 mcg (50,000 unit) capsule 2022-02 00:00: 00 09-30 00:00 :00 No [id number] Take 1 capsule by mouth weekly. [facility] traZODone 50 mg tablet 2022-02 00:00: 00 01-16 00:00 :00 No [id number] 50mg Take 1 tablet by mouth at bedtime. [facility] medroxyPROG ESTERone (DEPO-PROVE RA) syringe 150 mg 2021-02 21:15: 00 01-20 20:41 :00 No [id number] 150mg [facility] NIFEdipine ER 30 mg tablet 2021-02 00:00: 00 01-20 00:00 :00 No [id number] 30mg Take 1 tablet by mouth in the morning. [facility] NIFEdipine ER tablet 30 mg 2021-02 0- 04:00: 00 Yes 30mg 30 mg, Oral, DAILY, First dose on 11/27/21 at 2300, Until Discontinu ed, Routine [facility] vitamin w/FA tablet 2021-02 0- 00:00: 00 01-20 00:00 :00 No [id number] 1{tbl} Take 1 tablet by mouth in the morning. [facility] docusate 100 mg capsule 2021-02 0 00:00: 00 01-20 00:00 :00 No [id number] 200mg Take 2 capsules by mouth once daily as needed for Constipati on. [facility] ferrous sulfate 325 mg (65 mg iron) tablet 2021-02 0 00:00: 00 01-20 00:00 :00 No [id number] 325mg Take 1 tablet by mouth in the morning and 1 tablet in the evening. [facility] ibuprofen 600 mg tablet 2021-02 0 00:00: 00 01-20 00:00 :00 No [id number] 600mg Take 1 tablet by mouth every 6 (six) hours as needed (Pain). Take with food or milk. [facility] D5W 0.45% NaCl (1/2NS) IV infusion 1,000 mL 2021-02 19:38: 00 Yes 1000mL at 50 mL/hr, 1,000 mL, IV Infusion, CONTINUOUS , Starting on 11/27/21 at 1445, Until Discontinu ed, Routine [facility] HYDROcodone -acetaminop hen (NORCO 5) 5-325 mg tablet 1 tablet 2021-02 12:41: 25 Yes 1{tbl} 1 tablet, Oral, Q6HPRN, Starting on 11/27/21 at 0741, Until Discontinu ed, Routine, Pain (scale 7-10) [facility] ibuprofen (IBU) tablet 600 mg 2021-02 12:41: 25 Yes 600mg 600 mg, Oral, Q6HPRN, Starting on 11/27/21 at 0741, Until Discontinu ed, Routine, Pain (scale 4-6) [facility] acetaminoph en (TYLENOL) tablet 650 mg 2021-02 12:41: 25 Yes 650mg 650 mg, Oral, Q6HPRN, Starting on 11/27/21 at 0741, Until Discontinu ed, Routine, Pain (scale 1-3) [facility] diphenhydrA MINE (BENADRYL) tablet 25 mg 2021-02 12:41: 25 Yes 25mg 25 mg, Oral, Q6HPRN, Starting on 11/27/21 at 0741, Until Discontinu ed, Routine, Sleep, Itching [facility] ondansetron (ZOFRAN (PF)) injection 4 mg 2021-02 12:41: 25 Yes 4mg 4 mg, Slow IV Push, Q8HPRN, Starting on 11/27/21 at 0741, Until Discontinu ed, Routine, Nausea and Vomiting (N/V) [facility] simethicone (GAS RELIEF (SIMETHICON E)) chewable tablet 160 mg 2021-02 12:41: 25 Yes 160mg 160 mg, Oral, PC+HSPRN, Starting on 11/27/21 at 0741, Until Discontinu ed, Routine, Gas [facility] docusate (COLACE) capsule 200 mg 2021-02 12:41: 25 Yes 200mg 200 mg, Oral, QDAILYPRN, Starting on 11/27/21 at 0741, Until Discontinu ed, Routine, Constipati on [facility] magnesium hydroxide (MILK OF MAGNESIA) 400 mg/5 mL suspension 30 mL 2021-02 12:41: 25 Yes 30mL 30 mL, Oral, QDAILYPRN, Starting on 11/27/21 at 0741, Until Discontinu ed, Routine, Constipati on [facility] benzocaine- menthol (DERMOPLAST ) 20-0.5 % topical spray 2021-02 12:41: 25 Yes Topical, PRN, Starting on 11/27/21 at 0741, Until Discontinu ed, Routine, Perineum discomfort [facility] calcium gluconate 100 mg/mL (10%) injection 1,000 mg 2021-02 12:40: 21 Yes 1000mg 1,000 mg, Slow IV Push, PRN - SEE INSTRUCTIO NS, Starting on 11/27/21 at 0740, Until Discontinu ed, Routine, magnesium toxicity [facility] magnesium sulfate 4 mEq/mL (50 %) injection 32.48 mEq 2021-02 12:40: 21 Yes 4g 32.48 mEq (4 g), Slow IV Push, PRN - SEE INSTRUCTIO NS, Starting on 11/27/21 at 0740, Until Discontinu ed, Routine, For seizure activity (patient not on magnesium sulfate) [facility] magnesium sulfate 4 mEq/mL (50 %) injection 16.24 mEq 2021-02 12:40: 21 Yes 2g 16.24 mEq (2 g), Slow IV Push, PRN - SEE INSTRUCTIO NS, 2 doses, Starting on 11/27/21 at 0740, Until Discontinu ed, Routine, For seizure activity (patient already on magnesium sulfate) [facility] labetaloL (NORMODYNE) injection 20 mg [...] Hypertensi ve Emergency in [Order 4 End] [facility] oxytocin (PITOCIN) 30 units in NS 500 mL IV infusion 2021-02 0 02:10: 24 11-27 12:40 :54 No 2mU/min at 2-40 mL/hr, IV Infusion, TITRATE, Starting on 11/26/21 at 2110, Until [place] 11/27/21 at 0740, Routine [facility] penicillin g pot in dextrose [...] s
Durat ion of therapy: 72 hours [facility] fentaNYL-ro pivacaine 2 mcg/mL-0.1 % (PF) in NS 200 mL epidural infusion RTU 2021-02 0 20:46: 00 11-27 13:52 :31 No Epidural, ONCE INTRA PROCEDURE, Starting on 11/26/21 at 1546, Until 11/27/21 at 0852, Routine, Intra-op [facility] lidocaine-e pinephrine (XYLOCAINE W/EPINEPHRI NE) 1.5 %-1:200,000 injection 2021-02 20:43: 00 Yes Epidural, ONCE INTRA PROCEDURE, Starting on 11/26/21 at 1543, Until Discontinu ed, Routine, [facility]-op [facility] penicillin g potassium 5 Million Units in NaCl 0.9% (NS) 100 mL MINI-BAG 2021-02 18:15: 00 11-26 19:13 :00 No 510 5 Million Units, IV Piggyback, ONCE, 1 dose, On 11/26/21 at 1315, Administer over 60 Minutes, 100 mL
Reas on for Anti-Infec tive: Empiric Non-Surgic al Prophylaxi s
Durat ion of therapy: 72 hours [facility] NaCl 0.9% (NS) IV infusion 1,000 mL 2021-02 18:00: 00 11-27 12:40 :54 No 1000mL at 50 mL/hr, IV Infusion, CONTINUOUS , Starting on 11/26/21 at 1300, Until 11/27/21 at 0740, Routine [facility] oxytocin (PITOCIN) 30 units in NS 500 mL IV infusion 2021-02 14:31: 25 11-27 02:11 :24 No 2mU/min at 2-40 mL/hr, IV Infusion, TITRATE, Starting on 11/26/21 at 0931, Until 11/26/21 at 2111, Routine [facility] FENTanyl PF (SUBLIMAZE (PF)) injection 100 mcg 2021-02 13:50: 58 11-27 12:40 :54 No 100ug 100 mcg, Slow IV Push, Q1HPRN, Starting on 11/26/21 at 0850, Until 11/27/21 at 0740, Routine, Pain (scale 4-6), Pain (scale 7-10) [facility] misoprostol (CYTOTEC) quarter-tab let 25 mcg 2021-02 13:45: 00 11-26 13:22 :00 No 25ug 25 mcg, Vaginal, ONCE, 1 dose, On 11/26/21 at 0845, Routine [facility] butalbital- acetaminoph en-caff (ESGIC) 50-325-40 mg tablet 1 tablet 2021-02 0 09:45: 00 11-26 08:57 :00 No 1{tbl} 1 tablet, Oral, ONCE NOW, 1 dose, On 11/26/21 at 0445, Routine [facility] magnesium sulfate in water for injection 20 gram/500 mL (4 %) IV infusion 2021-02 09:00: 00 Yes 2g/h 2 g/hr (50 mL/hr), IV Infusion, CONTINUOUS , Starting on 11/26/21 at 0400, Until Discontinu ed, Routine [facility] D5W 0.45% NaCl (1/2NS) IV infusion 1,000 mL 2021-02 09:00: 00 11-27 12:40 :54 No 1000mL at 75 mL/hr, 1,000 mL, IV Infusion, CONTINUOUS , Starting on 11/26/21 at 0400, Until 11/27/21 at 0740, Routine [facility] promethazin e 6.25 mg/5 mL solution 11-09 00:00: 00 11-28 00:00 :00 No [id number] 12.5mg Take 10 mL by mouth every 4 (four) hours as needed for Nausea and Vomiting (N/V). [facility] promethazin e 6.25 mg/5 mL solution 10-18 00:00: 00 11-09 00:00 :00 No [id number] 12.5mg Take 10 mL by mouth every 4 (four) hours as needed for Nausea and Vomiting (N/V). [facility] promethazin e 6.25 mg/5 mL solution 09-29 00:00: 00 10-18 00:00 :00 No [id number] 12.5mg Take 10 mL by mouth every 4 (four) hours as needed for Nausea and Vomiting (N/V). [facility] promethazin e 6.25 mg/5 mL solution 6-23 00:00: 00 09-15 00:00 :00 No [id number] 12.5mg Take 10 mL by mouth every 4 (four) hours as needed for Nausea and Vomiting (N/V). [facility] proMETHazin e 25 mg tablet 07-17 00:00: 00 09-15 00:00 :00 No [id number] 25mg Take 1 tablet by mouth every 6 (six) hours as needed for Nausea and Vomiting (N/V). [facility] promethazin e 6.25 mg/5 mL solution 06-24 00:00: 00 06-29 00:00 :00 No [id number] 12.5mg Take 10 mL by mouth every 4 (four) hours as needed for Nausea and Vomiting (N/V). [facility] vit 33-iron-fol ic-dha (SELECT-OB + DHA) 29 mg iron-1 mg -250 mg combo pack 06-23 00:00: 07-17 00:00 :00 No [id number] 1{packe t} Take 1 Packet by mouth daily. [facility] proMETHazin e 25 mg suppository 06-22 00:00: 00 09-15 00:00 :00 No [id number] 25mg Insert 1 Suppositor y into rectum every 4 (four) hours as needed for Nausea and Vomiting (N/V). [facility] Immunizations Ordered Immunization Name Filled Immunization Name Date Status Comments Source HPV9 2022-12-25 00:00:00 Completed [facility] HPV9 2022-12-25 00:00:00 Completed [facility] HPV9 2022-12-25 00:00:00 Completed [facility] HPV9 2022-12-25 00:00:00 Completed [facility] HPV9 2022-12-25 00:00:00 Completed [facility] HPV9 2022-12-25 00:00:00 Completed [facility] HPV9 2022-12-25 00:00:00 Completed [facility] TDAP 2021-09-29 00:00:00 Completed [facility] TDAP 2021-09-29 00:00:00 Completed [facility] TDAP 2021-09-29 00:00:00 Completed [facility] TDAP 2021-09-29 00:00:00 Completed [facility] TDAP 2021-09-29 00:00:00 Completed [facility] TDAP 2021-09-29 00:00:00 Completed [facility] TDAP 2021-09-29 00:00:00 Completed [facility] TDAP 2021-09-29 00:00:00 Completed [facility] TDAP 2021-09-29 00:00:00 Completed [facility] TDAP 2021-09-29 00:00:00 Completed [facility] TDAP 2021-09-29 00:00:00 Completed [facility] TDAP 2021-09-29 00:00:00 Completed [facility] TDAP 2021-09-29 00:00:00 Completed [facility] TDAP 2021-09-29 00:00:00 Completed [facility] TDAP 2021-09-29 00:00:00 Completed [facility] TDAP 2021-09-29 00:00:00 Completed [facility] TDAP 2021-09-29 00:00:00 Completed [facility] TDAP 2021-09-29 00:00:00 Completed [facility] TDAP 2021-09-29 00:00:00 Completed [facility] TDAP 2021-09-29 00:00:00 Completed [facility] TDAP 2021-09-29 00:00:00 Completed [facility] TDAP 2021-09-29 00:00:00 Completed [facility] TDAP 2021-09-29 00:00:00 Completed [facility] TDAP 2021-09-29 00:00:00 Completed [facility] TDAP 2009-10-06 00:00:00 Completed HEPATITIS A 2009-10-06 [...] Trivalent 1997-11-23 00:00:00 Completed TDAP Unknown Completed [facility] TDAP Unknown Completed [facility] TDAP Unknown Completed [facility] TDAP Unknown Completed [facility] TDAP Unknown Completed [facility] TDAP Unknown Completed [facility] DTaP, Unspecified Formulation Unknown Completed [facility] HEPATITIS A Unknown Completed [facility] Hep B, Adol or Pedi Dosage Unknown Completed [facility] HIB 4 Dose Schedule Unknown Completed [facility] Haemophilus influenzae type b vaccine, conjugate unspecified formulation Unknown Completed [facility] HPV Unknown Completed [facility] Meningococcal Polysaccharide (groups A, C, Y and W-135) conjugate vaccine (MCV4P) Unknown Completed [facility] MMR Unknown Completed [facility] IPV Unknown Completed [facility] Poliovirus, Live, Oral, Trivalent Unknown Completed [facility] HPV9 Unknown Completed [facility] HEPATITIS A Unknown Completed [facility] Haemophilus influenzae type b vaccine, conjugate unspecified formulation Unknown Completed [facility] HPV Unknown Completed [facility] Meningococcal Polysaccharide (groups A, C, Y and W-135) conjugate vaccine (MCV4P) Unknown Completed [facility] HPV9 Unknown Completed [facility] TDAP Unknown Completed [facility] DTaP, Unspecified Formulation Unknown Completed [facility] Hep B, Adol or Pedi Dosage Unknown Completed [facility] HIB 4 Dose Schedule Unknown Completed [facility] MMR Unknown Completed [facility] IPV Unknown Completed [facility] Poliovirus, Live, Oral, Trivalent Unknown Completed [facility] TDAP Unknown Completed [facility] DTaP, Unspecified Formulation Unknown Completed [facility] HEPATITIS A Unknown Completed [facility] Hep B, Adol or Pedi Dosage Unknown Completed [facility] HIB 4 Dose Schedule Unknown Completed [facility] Haemophilus influenzae type b vaccine, conjugate unspecified formulation Unknown Completed [facility] HPV Unknown Completed [facility] Meningococcal Polysaccharide (groups A, C, Y and W-135) conjugate vaccine (MCV4P) Unknown Completed [facility] MMR Unknown Completed [facility] IPV Unknown Completed [facility] Poliovirus, Live, Oral, Trivalent Unknown Completed [facility] HPV9 Unknown Completed [facility] TDAP Unknown Completed [facility] DTaP, Unspecified Formulation Unknown Completed [facility] HEPATITIS A Unknown Completed [facility] Hep B, Adol or Pedi Dosage Unknown Completed [facility] HIB 4 Dose Schedule Unknown Completed [facility] Haemophilus influenzae type b vaccine, conjugate unspecified formulation Unknown Completed [facility] HPV Unknown Completed [facility] Meningococcal Polysaccharide (groups A, C, Y and W-135) conjugate vaccine (MCV4P) Unknown Completed [facility] MMR Unknown Completed [facility] IPV Unknown Completed [facility] Poliovirus, Live, Oral, Trivalent Unknown Completed [facility] HPV9 Unknown Completed [facility] TDAP Unknown Completed [facility] DTaP, Unspecified Formulation Unknown Completed [facility] HEPATITIS A Unknown Completed [facility] Hep B, Adol or Pedi Dosage Unknown Completed [facility] HIB 4 Dose Schedule Unknown Completed [facility] Haemophilus influenzae type b vaccine, conjugate unspecified formulation Unknown Completed [facility] HPV Unknown Completed [facility] Meningococcal Polysaccharide (groups A, C, Y and W-135) conjugate vaccine (MCV4P) Unknown Completed [facility] MMR Unknown Completed [facility] IPV Unknown Completed [facility] Poliovirus, Live, Oral, Trivalent Unknown Completed [facility] HPV9 Unknown Completed [facility] TDAP Unknown Completed [facility] DTaP, Unspecified Formulation Unknown Completed [facility] HEPATITIS A Unknown Completed [facility] Hep B, Adol or Pedi Dosage Unknown Completed [facility] HIB 4 Dose Schedule Unknown Completed [facility] Haemophilus influenzae type b vaccine, conjugate unspecified formulation Unknown Completed [facility] HPV Unknown Completed [facility] Meningococcal Polysaccharide (groups A, C, Y and W-135) conjugate vaccine (MCV4P) Unknown Completed [facility] MMR Unknown Completed [facility] IPV Unknown Completed [facility] Poliovirus, Live, Oral, Trivalent Unknown Completed [facility] HPV9 Unknown Completed [facility] HEPATITIS A Unknown Completed [facility] Haemophilus influenzae type b vaccine, conjugate unspecified formulation Unknown Completed [facility] HPV Unknown Completed [facility] Meningococcal Polysaccharide (groups A, C, Y and W-135) conjugate vaccine (MCV4P) Unknown Completed [facility] HPV9 Unknown Completed [facility] TDAP Unknown Completed [facility] DTaP, Unspecified Formulation Unknown Completed [facility] Hep B, Adol or Pedi Dosage Unknown Completed [facility] HIB 4 Dose Schedule Unknown Completed [facility] MMR Unknown Completed [facility] IPV Unknown Completed [facility] Poliovirus, Live, Oral, Trivalent Unknown Completed [facility] TDAP Unknown Completed [facility] DTaP, Unspecified Formulation Unknown Completed [facility] HEPATITIS A Unknown Completed [facility] Hep B, Adol or Pedi Dosage Unknown Completed [facility] HIB 4 Dose Schedule Unknown Completed [facility] Haemophilus influenzae type b vaccine, conjugate unspecified formulation Unknown Completed [facility] HPV Unknown Completed [facility] Meningococcal Polysaccharide (groups A, C, Y and W-135) conjugate vaccine (MCV4P) Unknown Completed [facility] MMR Unknown Completed [facility] IPV Unknown Completed [facility] Poliovirus, Live, Oral, Trivalent Unknown Completed [facility] HPV9 Unknown Completed [facility] TDAP Unknown Completed [facility] DTaP, Unspecified Formulation Unknown Completed [facility] HEPATITIS A Unknown Completed [facility] Hep B, Adol or Pedi Dosage Unknown Completed [facility] HIB 4 Dose Schedule Unknown Completed [facility] Haemophilus influenzae type b vaccine, conjugate unspecified formulation Unknown Completed [facility] HPV Unknown Completed [facility] Meningococcal Polysaccharide (groups A, C, Y and W-135) conjugate vaccine (MCV4P) Unknown Completed [facility] MMR Unknown Completed [facility] IPV Unknown Completed [facility] Poliovirus, Live, Oral, Trivalent Unknown Completed [facility] HPV9 Unknown Completed [facility] TDAP Unknown Completed [facility] DTaP, Unspecified Formulation Unknown Completed [facility] HEPATITIS A Unknown Completed [facility] Hep B, Adol or Pedi Dosage Unknown Completed [facility] HIB 4 Dose Schedule Unknown Completed [facility] Haemophilus influenzae type b vaccine, conjugate unspecified formulation Unknown Completed [facility] HPV Unknown Completed [facility] Meningococcal Polysaccharide (groups A, C, Y and W-135) conjugate vaccine (MCV4P) Unknown Completed [facility] MMR Unknown Completed [facility] IPV Unknown Completed [facility] Poliovirus, Live, Oral, Trivalent Unknown Completed [facility] HPV9 Unknown Completed [facility] TDAP Unknown Completed [facility] DTaP, Unspecified Formulation Unknown Completed [facility] HEPATITIS A Unknown Completed [facility] Hep B, Adol or Pedi Dosage Unknown Completed [facility] HIB 4 Dose Schedule Unknown Completed [facility] Haemophilus influenzae type b vaccine, conjugate unspecified formulation Unknown Completed [facility] HPV Unknown Completed [facility] Meningococcal Polysaccharide (groups A, C, Y and W-135) conjugate vaccine (MCV4P) Unknown Completed [facility] MMR Unknown Completed [facility] IPV Unknown Completed [facility] Poliovirus, Live, Oral, Trivalent Unknown Completed [facility] HPV9 Unknown Completed [facility] HEPATITIS A Unknown Completed [facility] Haemophilus influenzae type b vaccine, conjugate unspecified formulation Unknown Completed [facility] HPV Unknown Completed [facility] Meningococcal Polysaccharide (groups A, C, Y and W-135) conjugate vaccine (MCV4P) Unknown Completed [facility] HPV9 Unknown Completed [facility] TDAP Unknown Completed [facility] DTaP, Unspecified Formulation Unknown Completed [facility] Hep B, Adol or Pedi Dosage Unknown Completed [facility] HIB 4 Dose Schedule Unknown Completed [facility] MMR Unknown Completed [facility] IPV Unknown Completed [facility] Poliovirus, Live, Oral, Trivalent Unknown Completed [facility] TDAP Unknown Completed [facility] DTaP, Unspecified Formulation Unknown Completed [facility] HEPATITIS A Unknown Completed [facility] Hep B, Adol or Pedi Dosage Unknown Completed [facility] HIB 4 Dose Schedule Unknown Completed [facility] Haemophilus influenzae type b vaccine, conjugate unspecified formulation Unknown Completed [facility] HPV Unknown Completed [facility] Meningococcal Polysaccharide (groups A, C, Y and W-135) conjugate vaccine (MCV4P) Unknown Completed [facility] MMR Unknown Completed [facility] IPV Unknown Completed [facility] Poliovirus, Live, Oral, Trivalent Unknown Completed [facility] HPV9 Unknown Completed [facility] TDAP Unknown Completed [facility] DTaP, Unspecified Formulation Unknown Completed [facility] HEPATITIS A Unknown Completed [facility] Hep B, Adol or Pedi Dosage Unknown Completed [facility] HIB 4 Dose Schedule Unknown Completed [facility] Haemophilus influenzae type b vaccine, conjugate unspecified formulation Unknown Completed [facility] HPV Unknown Completed [facility] Meningococcal Polysaccharide (groups A, C, Y and W-135) conjugate vaccine (MCV4P) Unknown Completed [facility] MMR Unknown Completed [facility] IPV Unknown Completed [facility] Poliovirus, Live, Oral, Trivalent Unknown Completed [facility] HPV9 Unknown Completed [facility] TDAP Unknown Completed [facility] DTaP, Unspecified Formulation Unknown Completed [facility] HEPATITIS A Unknown Completed [facility] Hep B, Adol or Pedi Dosage Unknown Completed [facility] HIB 4 Dose Schedule Unknown Completed [facility] Haemophilus influenzae type b vaccine, conjugate unspecified formulation Unknown Completed [facility] HPV Unknown Completed [facility] Meningococcal Polysaccharide (groups A, C, Y and W-135) conjugate vaccine (MCV4P) Unknown Completed [facility] MMR Unknown Completed [facility] IPV Unknown Completed [facility] Poliovirus, Live, Oral, Trivalent Unknown Completed [facility] HPV9 Unknown Completed [facility] TDAP Unknown Completed [facility] DTaP, Unspecified Formulation Unknown Completed [facility] HEPATITIS A Unknown Completed [facility] Hep B, Adol or Pedi Dosage Unknown Completed [facility] HIB 4 Dose Schedule Unknown Completed [facility] Haemophilus influenzae type b vaccine, conjugate unspecified formulation Unknown Completed [facility] HPV Unknown Completed [facility] Meningococcal Polysaccharide (groups A, C, Y and W-135) conjugate vaccine (MCV4P) Unknown Completed [facility] MMR Unknown Completed [facility] IPV Unknown Completed [facility] Poliovirus, Live, Oral, Trivalent Unknown Completed [facility] HPV9 Unknown Completed [facility] HEPATITIS A Unknown Completed [facility] Haemophilus influenzae type b vaccine, conjugate unspecified formulation Unknown Completed [facility] HPV Unknown Completed [facility] Meningococcal Polysaccharide (groups A, C, Y and W-135) conjugate vaccine (MCV4P) Unknown Completed [facility] HPV9 Unknown Completed [facility] TDAP Unknown Completed [facility] DTaP, Unspecified Formulation Unknown Completed [facility] HEPATITIS A Unknown Completed [facility] Hep B, Adol or Pedi Dosage Unknown Completed [facility] HIB 4 Dose Schedule Unknown Completed [facility] Haemophilus influenzae type b vaccine, conjugate unspecified formulation Unknown Completed [facility] HPV Unknown Completed [facility] Meningococcal Polysaccharide (groups A, C, Y and W-135) conjugate vaccine (MCV4P) Unknown Completed [facility] MMR Unknown Completed [facility] IPV Unknown Completed [facility] Poliovirus, Live, Oral, Trivalent Unknown Completed [facility] HPV9 Unknown Completed [facility] TDAP Unknown Completed [facility] DTaP, Unspecified Formulation Unknown Completed [facility] HEPATITIS A Unknown Completed [facility] Hep B, Adol or Pedi Dosage Unknown Completed [facility] HIB 4 Dose Schedule Unknown Completed [facility] Haemophilus influenzae type b vaccine, conjugate unspecified formulation Unknown Completed [facility] HPV Unknown Completed [facility] Meningococcal Polysaccharide (groups A, C, Y and W-135) conjugate vaccine (MCV4P) Unknown Completed [facility] MMR Unknown Completed [facility] IPV Unknown Completed [facility] Poliovirus, Live, Oral, Trivalent Unknown Completed [facility] HPV9 Unknown Completed [facility] TDAP Unknown Completed [facility] DTaP, Unspecified Formulation Unknown Completed [facility] HEPATITIS A Unknown Completed [facility] Hep B, Adol or Pedi Dosage Unknown Completed [facility] HIB 4 Dose Schedule Unknown Completed [facility] Haemophilus influenzae type b vaccine, conjugate unspecified formulation Unknown Completed [facility] HPV Unknown Completed [facility] Meningococcal Polysaccharide (groups A, C, Y and W-135) conjugate vaccine (MCV4P) Unknown Completed [facility] MMR Unknown Completed [facility] IPV Unknown Completed [facility] Poliovirus, Live, Oral, Trivalent Unknown Completed [facility] HPV9 Unknown Completed [facility] TDAP Unknown Completed [facility] DTaP, Unspecified Formulation Unknown Completed [facility] HEPATITIS A Unknown Completed [facility] Hep B, Adol or Pedi Dosage Unknown Completed [facility] HIB 4 Dose Schedule Unknown Completed [facility] Haemophilus influenzae type b vaccine, conjugate unspecified formulation Unknown Completed [facility] HPV Unknown Completed [facility] Meningococcal Polysaccharide (groups A, C, Y and W-135) conjugate vaccine (MCV4P) Unknown Completed [facility] MMR Unknown Completed [facility] IPV Unknown Completed [facility] Poliovirus, Live, Oral, Trivalent Unknown Completed [facility] HPV9 Unknown Completed [facility] TDAP Unknown Completed [facility] DTaP, Unspecified Formulation Unknown Completed [facility] Hep B, Adol or Pedi Dosage Unknown Completed [facility] HIB 4 Dose Schedule Unknown Completed [facility] MMR Unknown Completed [facility] IPV Unknown Completed [facility] Poliovirus, Live, Oral, Trivalent Unknown Completed [facility] TDAP Unknown Completed [facility] DTaP, Unspecified Formulation Unknown Completed [facility] HEPATITIS A Unknown Completed [facility] Hep B, Adol or Pedi Dosage Unknown Completed [facility] HIB 4 Dose Schedule Unknown Completed [facility] Haemophilus influenzae type b vaccine, conjugate unspecified formulation Unknown Completed [facility] HPV Unknown Completed [facility] Meningococcal Polysaccharide (groups A, C, Y and W-135) conjugate vaccine (MCV4P) Unknown Completed [facility] MMR Unknown Completed [facility] IPV Unknown Completed [facility] Poliovirus, Live, Oral, Trivalent Unknown Completed [facility] HPV9 Unknown Completed [facility] TDAP Unknown Completed [facility] DTaP, Unspecified Formulation Unknown Completed [facility] HEPATITIS A Unknown Completed [facility] Hep B, Adol or Pedi Dosage Unknown Completed [facility] HIB 4 Dose Schedule Unknown Completed [facility] Haemophilus influenzae type b vaccine, conjugate unspecified formulation Unknown Completed [facility] HPV Unknown Completed [facility] Meningococcal Polysaccharide (groups A, C, Y and W-135) conjugate vaccine (MCV4P) Unknown Completed [facility] MMR Unknown Completed [facility] IPV Unknown Completed [facility] Poliovirus, Live, Oral, Trivalent Unknown Completed [facility] HPV9 Unknown Completed [facility] TDAP Unknown Completed [facility] DTaP, Unspecified Formulation Unknown Completed [facility] HEPATITIS A Unknown Completed [facility] Hep B, Adol or Pedi Dosage Unknown Completed [facility] HIB 4 Dose Schedule Unknown Completed [facility] Haemophilus influenzae type b vaccine, conjugate unspecified formulation Unknown Completed [facility] HPV Unknown Completed [facility] Meningococcal Polysaccharide (groups A, C, Y and W-135) conjugate vaccine (MCV4P) Unknown Completed [facility] MMR Unknown Completed [facility] IPV Unknown Completed [facility] Poliovirus, Live, Oral, Trivalent Unknown Completed [facility] HPV9 Unknown Completed [facility] TDAP Unknown Completed [facility] DTaP, Unspecified Formulation Unknown Completed [facility] HEPATITIS A Unknown Completed [facility] Hep B, Adol or Pedi Dosage Unknown Completed [facility] HIB 4 Dose Schedule Unknown Completed [facility] Haemophilus influenzae type b vaccine, conjugate unspecified formulation Unknown Completed [facility] HPV Unknown Completed [facility] Meningococcal Polysaccharide (groups A, C, Y and W-135) conjugate vaccine (MCV4P) Unknown Completed [facility] MMR Unknown Completed [facility] IPV Unknown Completed [facility] Poliovirus, Live, Oral, Trivalent Unknown Completed [facility] HPV9 Unknown Completed [facility] TDAP Unknown Completed [facility] DTaP, Unspecified Formulation Unknown Completed [facility] HEPATITIS A Unknown Completed [facility] Hep B, Adol or Pedi Dosage Unknown Completed [facility] HIB 4 Dose Schedule Unknown Completed [facility] Haemophilus influenzae type b vaccine, conjugate unspecified formulation Unknown Completed [facility] HPV Unknown Completed [facility] Meningococcal Polysaccharide (groups A, C, Y and W-135) conjugate vaccine (MCV4P) Unknown Completed [facility] MMR Unknown Completed [facility] IPV Unknown Completed [facility] Poliovirus, Live, Oral, Trivalent Unknown Completed [facility] HPV9 Unknown Completed [facility] TDAP Unknown Completed [facility] DTaP, Unspecified Formulation Unknown Completed [facility] HEPATITIS A Unknown Completed [facility] Hep B, Adol or Pedi Dosage Unknown Completed [facility] HIB 4 Dose Schedule Unknown Completed [facility] Haemophilus influenzae type b vaccine, conjugate unspecified formulation Unknown Completed [facility] HPV Unknown Completed [facility] Meningococcal Polysaccharide (groups A, C, Y and W-135) conjugate vaccine (MCV4P) Unknown Completed [facility] MMR Unknown Completed [facility] IPV Unknown Completed [facility] Poliovirus, Live, Oral, Trivalent Unknown Completed [facility] HPV9 Unknown Completed [facility] TDAP Unknown Completed [facility] DTaP, Unspecified Formulation Unknown Completed [facility] HEPATITIS A Unknown Completed [facility] Hep B, Adol or Pedi Dosage Unknown Completed [facility] HIB 4 Dose Schedule Unknown Completed [facility] Haemophilus influenzae type b vaccine, conjugate unspecified formulation Unknown Completed [facility] HPV Unknown Completed [facility] Meningococcal Polysaccharide (groups A, C, Y and W-135) conjugate vaccine (MCV4P) Unknown Completed [facility] MMR Unknown Completed [facility] IPV Unknown Completed [facility] Poliovirus, Live, Oral, Trivalent Unknown Completed [facility] HPV9 Unknown Completed [facility] TDAP Unknown Completed [facility] DTaP, Unspecified Formulation Unknown Completed [facility] HEPATITIS A Unknown Completed [facility] Hep B, Adol or Pedi Dosage Unknown Completed [facility] HIB 4 Dose Schedule Unknown Completed [facility] Haemophilus influenzae type b vaccine, conjugate unspecified formulation Unknown Completed [facility] HPV Unknown Completed [facility] Meningococcal Polysaccharide (groups A, C, Y and W-135) conjugate vaccine (MCV4P) Unknown Completed [facility] MMR Unknown Completed [facility] IPV Unknown Completed [facility] Poliovirus, Live, Oral, Trivalent Unknown Completed [facility] HPV9 Unknown Completed [facility] HEPATITIS A Unknown Completed [facility] Haemophilus influenzae type b vaccine, conjugate unspecified formulation Unknown Completed [facility] HPV Unknown Completed [facility] Meningococcal Polysaccharide (groups A, C, Y and W-135) conjugate vaccine (MCV4P) Unknown Completed [facility] HPV9 Unknown Completed [facility] TDAP Unknown Completed [facility] DTaP, Unspecified Formulation Unknown Completed [facility] Hep B, Adol or Pedi Dosage Unknown Completed [facility] HIB 4 Dose Schedule Unknown Completed [facility] MMR Unknown Completed [facility] IPV Unknown Completed [facility] Poliovirus, Live, Oral, Trivalent Unknown Completed [facility] HEPATITIS A Unknown Completed [facility] Haemophilus influenzae type b vaccine, conjugate unspecified formulation Unknown Completed [facility] HPV Unknown Completed [facility] Meningococcal Polysaccharide (groups A, C, Y and W-135) conjugate vaccine (MCV4P) Unknown Completed [facility] HPV9 Unknown Completed [facility] TDAP Unknown Completed [facility] DTaP, Unspecified Formulation Unknown Completed [facility] Hep B, Adol or Pedi Dosage Unknown Completed [facility] HIB 4 Dose Schedule Unknown Completed [facility] MMR Unknown Completed [facility] IPV Unknown Completed [facility] Poliovirus, Live, Oral, Trivalent Unknown Completed [facility] HEPATITIS A Unknown Completed [facility] Haemophilus influenzae type b vaccine, conjugate unspecified formulation Unknown Completed [facility] HPV Unknown Completed [facility] Meningococcal Polysaccharide (groups A, C, Y and W-135) conjugate vaccine (MCV4P) Unknown Completed [facility] HPV9 Unknown Completed [facility] TDAP Unknown Completed [facility] DTaP, Unspecified Formulation Unknown Completed [facility] Hep B, Adol or Pedi Dosage Unknown Completed [facility] HIB 4 Dose Schedule Unknown Completed [facility] MMR Unknown Completed [facility] IPV Unknown Completed [facility] Poliovirus, Live, Oral, Trivalent Unknown Completed [facility] TDAP Unknown Completed [facility] DTaP, Unspecified Formulation Unknown Completed [facility] HEPATITIS A Unknown Completed [facility] Hep B, Adol or Pedi Dosage Unknown Completed [facility] HIB 4 Dose Schedule Unknown Completed [facility] Haemophilus influenzae type b vaccine, conjugate unspecified formulation Unknown Completed [facility] HPV Unknown Completed [facility] Meningococcal Polysaccharide (groups A, C, Y and W-135) conjugate vaccine (MCV4P) Unknown Completed [facility] MMR Unknown Completed [facility] IPV Unknown Completed [facility] Poliovirus, Live, Oral, Trivalent Unknown Completed [facility] HPV9 Unknown Completed [facility] TDAP Unknown Completed [facility] DTaP, Unspecified Formulation Unknown Completed [facility] HEPATITIS A Unknown Completed [facility] Hep B, Adol or Pedi Dosage Unknown Completed [facility] HIB 4 Dose Schedule Unknown Completed [facility] Haemophilus influenzae type b vaccine, conjugate unspecified formulation Unknown Completed [facility] HPV Unknown Completed [facility] Meningococcal Polysaccharide (groups A, C, Y and W-135) conjugate vaccine (MCV4P) Unknown Completed [facility] MMR Unknown Completed [facility] IPV Unknown Completed [facility] Poliovirus, Live, Oral, Trivalent Unknown Completed [facility] HPV9 Unknown Completed [facility] TDAP Unknown Completed [facility] DTaP, Unspecified Formulation Unknown Completed [facility] HEPATITIS A Unknown Completed [facility] Hep B, Adol or Pedi Dosage Unknown Completed [facility] HIB 4 Dose Schedule Unknown Completed [facility] Haemophilus influenzae type b vaccine, conjugate unspecified formulation Unknown Completed [facility] HPV Unknown Completed [facility] Meningococcal Polysaccharide (groups A, C, Y and W-135) conjugate vaccine (MCV4P) Unknown Completed [facility] MMR Unknown Completed [facility] IPV Unknown Completed [facility] Poliovirus, Live, Oral, Trivalent Unknown Completed [facility] HPV9 Unknown Completed [facility] TDAP Unknown Completed [facility] DTaP, Unspecified Formulation Unknown Completed [facility] HEPATITIS A Unknown Completed [facility] Hep B, Adol or Pedi Dosage Unknown Completed [facility] HIB 4 Dose Schedule Unknown Completed [facility] Haemophilus influenzae type b vaccine, conjugate unspecified formulation Unknown Completed [facility] HPV Unknown Completed [facility] Meningococcal Polysaccharide (groups A, C, Y and W-135) conjugate vaccine (MCV4P) Unknown Completed [facility] MMR Unknown Completed [facility] IPV Unknown Completed [facility] Poliovirus, Live, Oral, Trivalent Unknown Completed [facility] HPV9 Unknown Completed [facility] TDAP Unknown Completed [facility] DTaP, Unspecified Formulation Unknown Completed [facility] HEPATITIS A Unknown Completed [facility] Hep B, Adol or Pedi Dosage Unknown Completed [facility] HIB 4 Dose Schedule Unknown Completed [facility] Haemophilus influenzae type b vaccine, conjugate unspecified formulation Unknown Completed [facility] HPV Unknown Completed [facility] Meningococcal Polysaccharide (groups A, C, Y and W-135) conjugate vaccine (MCV4P) Unknown Completed [facility] MMR Unknown Completed [facility] IPV Unknown Completed [facility] Poliovirus, Live, Oral, Trivalent Unknown Completed [facility] HPV9 Unknown Completed [facility] Vital Signs Vital Name Observation Time Observation Value Comments S ource Systolic blood pressure 2024-01-29 19:50:00 125 mm[Hg] [facility] Diastolic blood pressure 2024-01-29 19:50:00 85 mm[Hg] [facility] Heart rate 2024-01-29 19:50:00 103 /min [facility] Respiratory rate 2024-01-29 19:50:00 15 /min [facility] Oxygen saturation in Arterial blood by Pulse oximetry 2024-01-29 19:50:00 96 /min [facility] Body temperature 2024-01-29 18:30:00 36.33 Ava [facility] Body height 2024-01-21 21:15:00 165.1 cm [facility] Body weight 2024-01-21 21:15:00 122.471 kg [facility] BMI 2024-01-21 21:15:00 44.93 kg/m2 [facility] Systolic blood pressure 2024-01-12 11:25:00 156 mm[Hg] [facility] Diastolic blood pressure 2024-01-12 11:25:00 110 mm[Hg] [facility] Respiratory rate 2024-01-12 11:25:00 12 /min [facility] Oxygen saturation in Arterial blood by Pulse oximetry 2024-01-12 11:25:00 97 /min [facility] Heart rate 2024-01-12 11:15:00 88 /min [facility] Body temperature 2024-01-12 09:59:00 36.5 Ava [facility] Body height 2024-01-12 09:59:00 165.1 cm [facility] Body weight 2024-01-12 09:59:00 122.471 kg [facility] BMI 2024-01-12 09:59:00 44.93 kg/m2 [facility] Systolic blood pressure 2024-01-07 17:05:00 136 mm[Hg] [facility] Diastolic blood pressure 2024-01-07 17:05:00 99 mm[Hg] [facility] Heart rate 2024-01-07 17:05:00 109 /min [facility] Oxygen saturation in Arterial blood by Pulse oximetry 2024-01-07 17:05:00 100 /min [facility] Body temperature 2024-01-07 17:02:00 36.39 Ava [facility] Respiratory rate 2024-01-07 17:02:00 18 /min [facility] Body height 2024-01-07 17:02:00 165.1 cm [facility] Body weight 2024-01-07 17:02:00 122.471 kg [facility] BMI 2024-01-07 17:02:00 44.93 kg/m2 [facility] Systolic blood pressure 2024-01-03 17:27:00 111 mm[Hg] [facility] Diastolic blood pressure 2024-01-03 17:27:00 77 mm[Hg] [facility] Heart rate 2024-01-03 17:27:00 99 /min [facility] Body temperature 2024-01-03 17:27:00 36.5 Ava [facility] Respiratory rate 2024-01-03 17:27:00 18 /min [facility] Body height 2024-01-03 17:27:00 165.1 cm [facility] Body weight 2024-01-03 17:27:00 120.203 kg [facility] BMI 2024-01-03 17:27:00 44.10 kg/m2 [facility] Oxygen saturation in Arterial blood by Pulse oximetry 2024-01-03 17:27:00 99 /min [facility] Systolic blood pressure 2023-12-24 17:35:00 118 mm[Hg] [facility] Diastolic blood pressure 2023-12-24 17:35:00 80 mm[Hg] [facility] Heart rate 2023-12-24 17:35:00 90 /min [facility] Respiratory rate 2023-12-24 17:35:00 15 /min [facility] Oxygen saturation in Arterial blood by Pulse oximetry 2023-12-24 17:35:00 96 /min [facility] Body temperature 2023-12-24 17:05:00 36 Ava [facility] Body height 2023-12-24 16:37:00 165.1 cm [facility] Body weight 2023-12-24 16:37:00 122.154 kg [facility] BMI 2023-12-24 16:37:00 44.81 kg/m2 [facility] Systolic blood pressure 2023-12-24 17:05:00 100 mm[Hg] [facility] Diastolic blood pressure 2023-12-24 17:05:00 56 mm[Hg] [facility] Heart rate 2023-12-24 17:05:00 89 /min [facility] Body temperature 2023-12-24 17:05:00 36 Ava [facility] Respiratory rate 2023-12-24 17:05:00 16 /min [facility] Oxygen saturation in Arterial blood by Pulse oximetry 2023-12-24 17:05:00 94 /min [facility] Body height 2023-12-24 16:37:00 165.1 cm [facility] Body weight 2023-12-24 16:37:00 122.154 kg [facility] BMI 2023-12-24 16:37:00 44.81 kg/m2 [facility] Systolic blood pressure 2023-11-27 19:10:00 111 mm[Hg] [facility] Diastolic blood pressure 2023-11-27 19:10:00 76 mm[Hg] [facility] Heart rate 2023-11-27 19:10:00 111 /min [facility] Respiratory rate 2023-11-27 19:10:00 18 /min [facility] Body height 2023-11-27 19:10:00 165.1 cm [facility] Body weight 2023-11-27 19:10:00 124.286 kg [facility] BMI 2023-11-27 19:10:00 45.60 kg/m2 [facility] Systolic blood pressure 2023-11-26 20:40:00 112 mm[Hg] [facility] Diastolic blood pressure 2023-11-26 20:40:00 74 mm[Hg] [facility] Heart rate 2023-11-26 20:40:00 103 /min [facility] Body temperature 2023-11-26 20:40:00 36.39 Ava [facility] Body height 2023-11-26 20:40:00 165.1 cm [facility] Body weight 2023-11-26 20:40:00 123.923 kg [facility] BMI 2023-11-26 20:40:00 45.46 kg/m2 [facility] Body weight 2023-11-22 18:07:00 125.102 kg [facility] BMI 2023-11-22 18:07:00 45.90 kg/m2 [facility] Oxygen saturation in Arterial blood by Pulse oximetry 2023-11-22 18:07:00 98 /min [facility] Systolic blood pressure 2023-11-22 18:07:00 134 mm[Hg] [facility] Diastolic blood pressure 2023-11-22 18:07:00 89 mm[Hg] [facility] Heart rate 2023-11-22 18:07:00 126 /min [facility] Body temperature 2023-11-22 18:07:00 36.28 Ava [facility] Respiratory rate 2023-11-22 18:07:00 18 /min [facility] Body height 2023-11-22 18:07:00 165.1 cm [facility] Systolic blood pressure 2023-11-19 14:38:00 127 mm[Hg] [facility] Diastolic blood pressure 2023-11-19 14:38:00 86 mm[Hg] [facility] Heart rate 2023-11-19 14:38:00 107 /min [facility] Body temperature 2023-11-19 14:38:00 36.33 Ava [facility] Respiratory rate 2023-11-19 14:38:00 18 /min [facility] Body height 2023-11-19 14:38:00 165.1 cm [facility] Body weight 2023-11-19 14:38:00 123.741 kg [facility] BMI 2023-11-19 14:38:00 45.40 kg/m2 [facility] Oxygen saturation in Arterial blood by Pulse oximetry 2023-11-19 14:38:00 98 /min [facility] Systolic blood pressure 2023-11-18 16:30:00 156 mm[Hg] [facility] Diastolic blood pressure 2023-11-18 16:30:00 113 mm[Hg] [facility] Heart rate 2023-11-18 16:30:00 88 /min [facility] Respiratory rate 2023-11-18 16:30:00 18 /min [facility] Oxygen saturation in Arterial blood by Pulse oximetry 2023-11-18 16:30:00 98 /min [facility] Body temperature 2023-11-18 10:28:00 36.72 Ava [facility] Body height 2023-11-18 10:27:00 165.1 cm [facility] Body weight 2023-11-18 10:27:00 122.471 kg [facility] BMI 2023-11-18 10:27:00 44.93 kg/m2 [facility] Systolic blood pressure 2023-11-08 20:00:00 123 mm[Hg] [facility] Diastolic blood pressure 2023-11-08 20:00:00 91 mm[Hg] [facility] Respiratory rate 2023-11-08 20:00:00 17 /min [facility] Heart rate 2023-11-08 19:00:00 75 /min [facility] Oxygen saturation in Arterial blood by Pulse oximetry 2023-11-08 19:00:00 100 /min [facility] Body temperature 2023-11-08 17:00:00 36.83 Ava [facility] Body height 2023-11-08 15:16:00 165.1 cm [facility] Body weight 2023-11-08 15:16:00 122.471 kg [facility] BMI 2023-11-08 15:16:00 44.93 kg/m2 [facility] Systolic blood pressure 2023-08-06 19:07:00 135 mm[Hg] [facility] Diastolic blood pressure 2023-08-06 19:07:00 93 mm[Hg] [facility] Heart rate 2023-08-06 19:04:00 81 /min [facility] Body temperature 2023-08-06 19:04:00 36.11 Ava [facility] Respiratory rate 2023-08-06 19:04:00 18 /min [facility] Body height 2023-08-06 19:04:00 165.1 cm [facility] Body weight 2023-08-06 19:04:00 140.66 kg [facility] BMI 2023-08-06 19:04:00 51.60 kg/m2 [facility] Oxygen saturation in Arterial blood by Pulse oximetry 2023-08-06 19:04:00 100 /min [facility] Systolic blood pressure 2023-06-21 16:24:00 156 mm[Hg] [facility] Diastolic blood pressure 2023-06-21 16:24:00 98 mm[Hg] [facility] Heart rate 2023-06-21 16:24:00 94 /min [facility] Body temperature 2023-06-21 16:24:00 37.22 Ava [facility] Respiratory rate 2023-06-21 16:24:00 16 /min [facility] Body height 2023-06-21 16:24:00 165.1 cm [facility] Body weight 2023-06-21 16:24:00 127.007 kg [facility] BMI 2023-06-21 16:24:00 46.59 kg/m2 [facility] Oxygen saturation in Arterial blood by Pulse oximetry 2023-06-21 16:24:00 100 /min [facility] Systolic blood pressure 2023-01-24 20:58:00 132 mm[Hg] [facility] Diastolic blood pressure 2023-01-24 20:58:00 96 mm[Hg] [facility] Heart rate 2023-01-24 20:56:00 95 /min [facility] Body temperature 2023-01-24 20:56:00 36.67 Ava [facility] Respiratory rate 2023-01-24 20:56:00 18 /min [facility] Body height 2023-01-24 20:56:00 165.1 cm [facility] Body weight 2023-01-24 20:56:00 138.937 kg [facility] BMI 2023-01-24 20:56:00 50.97 kg/m2 [facility] Oxygen saturation in Arterial blood by Pulse oximetry 2023-01-24 20:56:00 100 /min [facility] Systolic blood pressure 2022-12-25 19:43:00 131 mm[Hg] [facility] Diastolic blood pressure 2022-12-25 19:43:00 86 mm[Hg] [facility] Heart rate 2022-12-25 19:43:00 72 /min [facility] Body temperature 2022-12-25 19:43:00 36.28 Ava [facility] Respiratory rate 2022-12-25 19:43:00 16 /min [facility] Body height 2022-12-25 19:43:00 165.1 cm [facility] Body weight 2022-12-25 19:43:00 138.347 kg [facility] BMI 2022-12-25 19:43:00 50.75 kg/m2 [facility] Oxygen saturation in Arterial blood by Pulse oximetry 2022-12-25 19:43:00 99 /min [facility] Systolic blood pressure 2022-01-20 20:03:00 135 mm[Hg] [facility] Diastolic blood pressure 2022-01-20 20:03:00 87 mm[Hg] [facility] Heart rate 2022-01-20 20:03:00 87 /min [facility] Body temperature 2022-01-20 20:03:00 36.56 Ava [facility] Respiratory rate 2022-01-20 20:03:00 17 /min [facility] Body height 2022-01-20 20:03:00 165.1 cm [facility] Body weight 2022-01-20 20:03:00 118.706 kg [facility] BMI 2022-01-20 20:03:00 43.55 kg/m2 [facility] Systolic blood pressure 2021-12-22 13:14:00 125 mm[Hg] [facility] Diastolic blood pressure 2021-12-22 13:14:00 86 mm[Hg] [facility] Heart rate 2021-12-22 13:14:00 96 /min [facility] Body temperature 2021-12-22 13:14:00 36.61 Ava [facility] Respiratory rate 2021-12-22 13:14:00 20 /min [facility] Body height 2021-12-22 13:14:00 165.1 cm [facility] Body weight 2021-12-22 13:14:00 108.41 kg [facility] BMI 2021-12-22 13:14:00 39.77 kg/m2 [facility] Systolic blood pressure 2021-11-29 12:00:00 142 mm[Hg] [facility] Diastolic blood pressure 2021-11-29 12:00:00 87 mm[Hg] [facility] Heart rate 2021-11-29 12:00:00 79 /min [facility] Body temperature 2021-11-29 12:00:00 36.72 Ava [facility] Respiratory rate 2021-11-29 12:00:00 18 /min [facility] Oxygen saturation in Arterial blood by Pulse oximetry 2021-11-29 12:00:00 100 /min [facility] Body height 2021-11-26 08:32:00 165.1 cm [facility] Body weight 2021-11-26 08:32:00 114.034 kg [facility] BMI 2021-11-26 08:32:00 41.84 kg/m2 [facility] Systolic blood pressure 2021-11-23 14:45:00 133 mm[Hg] [facility] Diastolic blood pressure 2021-11-23 14:45:00 102 mm[Hg] [facility] Heart rate 2021-11-23 14:42:00 77 /min [facility] Body temperature 2021-11-23 14:42:00 36.33 Ava [facility] Respiratory rate 2021-11-23 14:42:00 18 /min [facility] Body height 2021-11-23 14:42:00 165.1 cm [facility] Body weight 2021-11-23 14:42:00 114.17 kg [facility] BMI 2021-11-23 14:42:00 41.89 kg/m2 [facility] Systolic blood pressure 2021-11-11 15:03:00 120 mm[Hg] [facility] Diastolic blood pressure 2021-11-11 15:03:00 82 mm[Hg] [facility] Heart rate 2021-11-11 14:58:00 105 /min [facility] Body temperature 2021-11-11 14:57:00 36.33 Ava [facility] Respiratory rate 2021-11-11 14:57:00 18 /min [facility] Body height 2021-11-11 14:57:00 165.1 cm [facility] Body weight 2021-11-11 14:57:00 113.541 kg [facility] BMI 2021-11-11 14:57:00 41.65 kg/m2 [facility] Systolic blood pressure 2021-10-27 23:55:00 129 mm[Hg] [facility] Diastolic blood pressure 2021-10-27 23:55:00 76 mm[Hg] [facility] Heart rate 2021-10-27 23:55:00 88 /min [facility] Oxygen saturation in Arterial blood by Pulse oximetry 2021-10-27 23:55:00 96 /min [facility] Body temperature 2021-10-27 23:14:00 37 Ava [facility] Respiratory rate 2021-10-27 23:14:00 18 /min [facility] Body height 2021-10-27 22:26:00 165.1 cm [facility] Body weight 2021-10-27 22:26:00 111.131 kg [facility] BMI 2021-10-27 22:26:00 40.77 kg/m2 [facility] Systolic blood pressure 2021-10-27 18:08:00 140 mm[Hg] [facility] Diastolic blood pressure 2021-10-27 18:08:00 94 mm[Hg] [facility] Heart rate 2021-10-27 18:07:00 88 /min [facility] Body temperature 2021-10-27 18:07:00 35.61 Ava [facility] Respiratory rate 2021-10-27 18:07:00 18 /min [facility] Body weight 2021-10-27 18:07:00 110.224 kg [facility] BMI 2021-10-27 18:07:00 40.44 kg/m2 [facility] Procedures Procedure Date / Time Performed Performing Clinician Source POCT TEST 2024-01-29 16:18:00 Gianni Lopez [facility] POCT TEST 2024-01-12 10:32:00 Caro Bauer [facility] LIPASE 2024-01-12 10:06:00 Caro Bauer [facility] COMP. METABOLIC PANEL (29099) 2024-01-12 10:06:00 Caro Bauer [facility] CBC WITH DIFF 2024-01-12 10:06:00 Caro Bauer [facility] EGD (ENDO) 2023-12-24 17:08:[address] [facility] EGD (ENDO) 2023-12-24 17:08:[address] [facility] SURGICAL PATHOLOGY EXAM 2023-12-24 16:57:00 Yisel Hart [facility] ESOPHAGOGASTRODUODENOSCOPY 2023-12-24 16:36:00 Yisel Hart [facility] US OVARY TORSION 2023-11-18 16:33:50 Kelly Simms [facility] URINALYSIS 2023-11-18 15:15:00 Caro Bauer [facility] CT ABDOMEN PELVIS W CONTRAST 2023-11-18 13:38:59 Caro Bauer [facility] LIPASE 2023-11-18 11:10:00 Caro Bauer [facility] TEST, SERUM 2023-11-18 11:10:00 Caro Bauer [facility] COMP. METABOLIC PANEL ([id number]) 2023-11-18 11:10:00 Caro Bauer [facility] CBC WITH DIFF 2023-11-18 11:10:00 Caro Bauer [facility] COMP. METABOLIC PANEL (63350) 2023-11-08 16:43:00 Tiff Isabel [facility] LIPASE 2023-11-08 16:01:00 Tiff Isabel [facility] CBC WITH DIFF 2023-11-08 16:01:00 Tiff Isabel [facility] URINALYSIS 2023-11-08 16:01:00 Tiff Isabel [facility] POCT TEST 2023-11-08 16:01:00 Tiff Isabel [facility] ZINC, SERUM 2023-08-06 19:42:00 [facility] VITAMIN B6, PLASMA 2023-08-06 19:42:00 [facility]-[place] FREE T4 2023-08-06 19:42:00 [facility] THYROID STIMULATING HORMONE 2023-08-06 19:42:00 [facility] COMP. METABOLIC PANEL ([id number]) 2023-08-06 19:42:00 [facility] CBC WITH DIFF 2023-08-06 19:42:00 [facility] GLYCOSYLATED HEMOGLOBIN (A1C) 2023-08-06 19:42:00 [facility] VITAMIN D, 25-OH 2023-08-06 19:42:00 [facility] FREE T3 2023-08-06 19:42:00 [facility] POCT TEST 2023-06-21 16:30:00 Bonita Trivedi [facility] URINALYSIS 2023-06-21 16:29:00 Bonita Trivedi [facility] INSURANCE CORRESPONDENCE 2023-01-15 06:01:00 Doctor Unassigned, [place] [facility] INSURANCE CORRESPONDENCE 2023-01-06 06:01:00 Doctor Unassigned, [place] [facility] GARDASIL 9 (HPV 9V) VACCINE 2022-12-25 20:04:37 [place] POCT TEST 2022-01-20 20:18:00 Jacinta Voss [facility] DME/SUPPLY JUSTIFICATION 2022-01-03 06:01:00 Doctor Unassigned, [place] [facility] CBC WITH DIFF 2021-11-28 08:48:00 Adum, Vanessa Camryn [facility] CENTRAL NEURAXIAL BLOCK 2021-11-26 20:52:15 Wilver Owens [facility] HB ABO GROUPING 2021-11-26 09:30:00 Adum, Vanessa Camryn [facility] LACTATE DEHYDROGENASE 2021-11-26 09:29:00 Adum, Vanessa Cowan [facility] URIC ACID 2021-11-26 09:29:00 Adum, Vanessa Camryn [facility] COMP. METABOLIC PANEL ([id number]) 2021-11-26 09:29:00 Adum, Vanessa Camryn [facility] URINE DRUG (IMMUNOASSAY) - COMPREHENSIVE DRUG SCREEN 2021-11-26 09:29:00 Adum, Vanessa Camryn [facility] CBC WITH DIFF 2021-11-26 09:29:00 Adum, Vanessa Camryn [facility] URINALYSIS 2021-11-26 09:29:00 Adum, Vanessa Cowan [facility] HEPATITIS B SURFACE ANTIGEN 2021-11-26 09:29:00 Adum, Vanessa Cowan [facility] ADC OR [place] ONLY - RPR 2021-11-26 09:29:00 Adum, Vanessa Camryn [facility] HIV 1/2 AG-AB WITH REFLEX 2021-11-26 09:29:00 Adum, Vanessa Camryn [facility] CONSENT/REFUSAL FOR DIAGNOSI S AND TREATMENT 2021-11-26 08:08:59 Doctor Unassigned, [place] [facility] POCT URINALYSIS 2021-11-23 14:56:00 Rodrick Pete [facility] POCT URINALYSIS 2021-11-11 14:58:00 Rodrick Pete [facility] CONSENT/REFUSAL FOR DIAGNOSI S AND TREATMENT 2021-10-27 22:13:12 Doctor Unassigned, [place] [facility] POCT URINALYSIS 2021-10-27 18:21:00 Rodrick Pete [facility] Encounters Start Date/Time End Date/Time Encounter Type Admission Type Attending [facility] Facility Care Department Encounter ID Source 2024-01-29 08:46:00 2024-01-29 14:10:00 Outpatient R EVA BRYAN [facility] [place] [id number] [facility] 2024-01-29 08:46:00 2024-01-29 14:10:00 Hospital Encounter Eva Bryan [facility] AT [facility] 1.20.114 350.1.13.10 4.2.7.2.686 [id number] [facility] 2024-01-25 00:00:00 2024-01-28 13:50:46 Refill Obsuzanne[facility] 1.84.114 350.1.13.10 4.2.7.2.686 [id number] [facility] 2024-01-12 03:54:00 2024-01-12 05:48:00 Emergency X TUAN BAUERCULLEN SASHAMEGANSUDHAKAR CARO [facility] ERT [id number] [facility] 2024-01-12 03:54:00 2024-01-12 05:48:00 Emergency Caro Bauer [facility] 1..114 350.1.13.10 4.2.7.2.686 [id number] [facility] 2024-01-11 00:00:00 2024-01-11 12:50:05 Patient Secure Msg [facility] 1.84.114 350.1.13.10 4.2.7.2.686 [id number] [facility] 2024-01-10 00:00:00 2024-01-11 05:46:35 Patient Secure Msg [facility] 1.2840.114 350.1.13.10 4.2.7.2.686 [id number] [facility] 2024-01-07 11:15:00 2024-01-07 12:06:32 Outpatient R EVA BRYAN [facility] [id number] [facility] 2024-01-07 11:15:00 2024-01-07 12:06:32 Office Visit Eva Bryan [facility] BUILD[facility] [id number] 350.1.13.10 4.2.7.2.686 [id number] [facility] 2023-11-30 00:00:00 2024-01-05 18:24:03 Patient Secure Msg Jeimy [facility] BUILDING [id number] 350.1.13.10 4.2.7.2.686 [id number] [facility] 2024-01-03 11:00:00 2024-01-03 11:41:02 Outpatient R JESS MUNSON [facility] [id number] [facility] 2024-01-03 11:00:00 2024-01-03 11:41:02 Office Visit suzanne[facility] BUILDING [id number] 350.1.13.10 4.2.7.2.686 [id number] [facility] 2024-01-02 00:00:00 2024-01-02 08:01:22 Telephone Jeimy [facility] BUILDING [id number] 350.1.13.10 4.2.7.2.686 [id number] [facility] 2023-12-25 00:00:00 2023-12-27 05:31:52 Refill RodrigoGeoFranklinAngelo lark[facility] 1.2.114 350.1.13.10 4.2.7.2.686 [id number] [facility] 2023-12-25 00:00:00 2023-12-25 12:23:25 Refill Yann Nayak [facility] 1..114 350.1.13.10 4.2.7.2.686 [id number] [facility] 2023-12-24 00:00:00 2023-12-24 16:00:22 Patient Secure Msg HartYisel muñoz [facility] 1..114 350.1.13.10 4.2.7.2.686 [id number] [facility] 2023-12-24 09:50:00 2023-12-24 11:47:00 Outpatient R [facility] [facility] [id number] [facility] 2023-12-24 09:50:00 2023-12-24 11:47:00 Hospital Encounter Huseyin Yisel [facility] BL 1..114 350.1.13.10 4.2.7.2.686 [id number] [id number] [facility] 2023-12-24 10:45:00 2023-12-24 11:15:00 Surgery HartYisel muñoz [facility] [employer] [employer] BLDG 1..114 350.1.13.10 4.2.7.2.686 [id number] 020 [id number] [facility] 2023-12-18 14:30:00 2023-12-18 14:30:00 Outpatient R KONRAD ORDOÑEZ OGECHUKWU [facility] [id number] [facility] 2023-12-18 13:00:00 2023-12-18 13:00:00 Outpatient R OBI-FRANKLIN JESS OBI-FRANKLIN , JESS [facility] [id number] [facility] 2023-12-17 00:00:00 2023-12-18 11:14:39 Telephone [facility] BUILDING 1.2.840.114 350.1.13.10 4.2.7.2.686 [id number] 044 [id number] [facility] 2023-12-12 08:40:00 2023-12-12 08:40:00 Outpatient R OBI-FRANKLIN JESS OBI-FRANKLIN JESS [facility] [id number] [facility] 2023-12-07 00:00:00 2023-12-10 08:32:14 Refill Konrad Ordoñez [facility] BUILDING 1.2.840.114 350.1.13.10 4.2.7.2.686 [id number] 044 [id number] [facility] 2023-11-30 00:00:00 2023-12-04 09:32:31 Patient Secure Tianna Marrero [facility] [place] [facility] 1.2.840.114 350.1.13.10 4.2.7.2.686 [id number] 071 [id number] [facility] 2023-11-30 15:45:00 2023-11-30 15:45:00 Outpatient R ISAAC SHAY [facility] [id number] [facility] 2023-11-27 14:00:00 2023-11-27 14:37:01 Outpatient R VANESSA LEYVA VIVIAN [facility] [id number] [facility] 2023-11-27 14:00:00 2023-11-27 14:37:01 Office Visit Vanessa Leyva [facility] 1.84.114 350.1.13.10 4.2.7.2.686 [id number] [facility] 2023-11-26 15:00:00 2023-11-26 15:30:00 [facility] 1.84.114 350.1.13.10 4.2.7.2.686 [id number] [facility] 2023-11-26 15:00:00 2023-11-26 15:00:00 Outpatient R JOSE DE JESUS MEDINA VIEN [facility] [id number] [facility] 2023-11-22 13:00:00 2023-11-22 13:30:00 Office Visit Tianna Mei [facility] 1.84.114 350.1.13.10 4.2.7.2.686 [id number] 071 [id number] [facility] 2023-11-22 13:00:00 2023-11-22 13:00:00 Outpatient R TIANNA MEI ASHLEY [facility] [id number] [facility] 2023-11-20 10:00:00 2023-11-20 10:00:00 Outpatient R [facility] [id number] [facility] 2023-11-19 10:30:00 2023-11-19 10:30:00 Energy Conservation Specialist Visit 2, Adc Lab Obi-Jess Reid 2, Adc Lab [facility] 1..840.114 350.1.13.10 4.2.7.2.686 [id number] [facility] 2023-11-19 09:40:00 2023-11-19 10:03:53 Outpatient R OBI-JESS REID JEIMY [facility] [id number] [facility] 2023-11-19 09:40:00 2023-11-19 10:03:53 Office Visit Jeimy [facility] PROFESSIO NAL BUILDING 1.2.840.114 350.1.13.10 4.2.7.2.686 [id number] 044 [id number] [facility] 2023-11-15 00:00:00 2023-11-18 18:57:29 Refill Jeimy [facility] PROFESSIO NAL BUILDING 1.2.840.114 350.1.13.10 4.2.7.2.686 [id number] 044 [id number] [facility] 2023-11-16 00:00:00 2023-11-18 18:53:00 Refill [facility] 1.2.840.114 350.1.13.10 4.2.7.2.686 [id number] 044 [id number] [facility] 2023-11-18 05:34:00 2023-11-18 13:08:00 Emergency KELLY CUEVAS ROBERT [facility] [id number] [facility] 2023-11-18 05:34:00 2023-11-18 13:08:00 Emergency Caro Bauer Robert Lee [facility] 1.2.840.114 350.1.13.10 4.2.7.2.686 [id number] 084 [id number] [facility] 2023-11-08 10:16:00 2023-11-08 16:16:00 Emergency TIFF VILLAFUERTE ERICA [facility] [id number] [facility] 2023-11-08 10:16:00 2023-11-08 16:16:00 Emergency Tiff Isabel [facility] 1.2.840.114 350.1.13.10 4.2.7.2.686 [id number] 084 [id number] [facility] 2023-10-16 00:00:00 2023-10-19 05:44:04 Refill Obi-Franklin Ejss [facility] PROFESSIO NAL BUILDING 1.2.840.114 350.1.13.10 4.2.7.2.686 [id number] 044 [id number] [facility] 2023-10-15 00:00:00 2023-10-16 10:48:03 [facility] 1.2.840.114 350.1.13.10 4.2.7.2.686 [id number] 044 [id number] [facility] 2023 09:40:00 2023 09:40:00 Outpatient R OBI-FRANKLIN , JESS OBI-FRANKLIN , JESS [facility] [id number] [facility] 2023-10-01 00:00:00 2023-10-03 15:28:49 Refill Obi-Franklin , Jess [facility] PROFESSIO NAL BUILDING 1.2.840.114 350.1.13.10 4.2.7.2.686 [id number] 044 [id number] [facility] 2023-09-12 00:00:00 2023-09-13 13:09:32 [facility] 1.2.840.114 350.1.13.10 4.2.7.2.686 [id number] 044 [id number] [facility] 2023-09-05 10:40:00 2023-09-05 10:40:00 Outpatient R OBI-FRANKLIN , JESS OBI-FRANKLIN , JESS [facility] [id number] [facility] 2023-08-13 14:40:00 2023-08-13 14:40:00 Outpatient R OBSuzanne-JESS REID OBSuzanne-JESS REID [facility] [id number] [facility] 2023-08-06 14:30:00 2023-08-06 15:25:53 Energy Conservation Specialist Visit 2, Adc Lab Jess [facility] 1.2.840.114 350.1.13.10 4.2.7.2.686 [id number] [facility] 2023-08-06 14:30:00 2023-08-06 14:30:00 Outpatient R OBI-JESS REID OBI-JESS REID [facility] [id number] [facility] 2023-08-06 13:40:00 2023-08-06 14:29:31 Office Visit Jess Munson [facility] BUILDING 1.2.840.114 350.1.13.10 4.2.7.2.686 [id number] 044 [id number] [facility] 2023-08-06 08:40:00 2023-08-06 08:40:00 Outpatient R OBJESS RAMESH OBI-JESS REID [facility] [id number] [facility] 2023-07-31 00:00:00 2023-08-01 12:29:54 Telephone Konrad Ordoñez [facility] 1.2.840.114 350.1.13.10 4.2.7.2.686 [id number] 044 [id number] [facility] 2023-07-31 00:00:00 2023-07-31 18:10:27 Refill Arun-Franklin , [facility] BUILDING 1.2.840.114 350.1.13.10 4.2.7.2.686 [id number] 044 [id number] [facility] 2023-07-30 00:00:00 2023-07-31 09:10:12 Patient Secure Msg Obi-Franklin [facility] BUILDING 1.2.840.114 350.1.13.10 4.2.7.2.686 [id number] 044 [id number] [facility] 2023-07-25 00:00:00 2023-07-25 09:15:22 Refill Obi-Franklin [facility] 1.2.840.114 350.1.13.10 4.2.7.2.686 [id number] 044 [id number] [facility] 2023-05-29 00:00:00 2023-06-30 18:07:42 Patient Secure Msg Obi-Franklin [facility] 1.2.840.114 350.1.13.10 4.2.7.2.686 [id number] 044 [id number] [facility] 2023-06-21 11:31:00 2023-06-21 12:29:00 Emergency X BONITA TRIVEDI [facility] ERT [id number] [facility] 2023-06-21 11:31:00 2023-06-21 12:29:00 Emergency Bonita Trivedi [facility] 1.2.840.114 350.1.13.10 4.2.7.2.686 [id number] 084 [id number] [facility] 2023-06-18 08:40:00 2023-06-18 08:40:00 Outpatient R OBI-FRANKLIN , JESS OBI-FRANKLIN , [facility] [id number] [facility] 2023-06-12 00:00:00 2023-06-12 00:00:00 Patient Secure Msg Obi-Franklin , Jess [facility] 1.2.840.114 350.1.13.10 4.2.7.2.686 [id number] 044 [id number] [facility] 2023-06-06 13:00:00 2023-06-06 13:00:00 Outpatient R OBI-FRANKLIN , JESS [facility]FRANKLIN , [facility] [id number] [facility] 2023-05-29 00:00:00 2023-05-29 00:00:00 [facility]Franklin [facility] 1.2.840.114 350.1.13.10 4.2.7.2.686 [id number] 044 [id number] [facility] 2023-04-25 15:00:00 2023-04-25 15:00:00 Outpatient R OBI-FRANKLIN , JESS [facility]BI[facility]FRANKLIN , [facility] [id number] [facility] 2023-04-23 00:00:00 2023-04-23 00:00:00 Refill Obi-Franklin , Jess [facility] BUILDING 1.2.840.114 350.1.13.10 4.2.7.2.686 [id number] 044 [id number] [facility] 2023-04-11 00:00:00 2023-04-11 00:00:00 [facility]ill [facility]bi[facility]Franklin , [facility] 1.2.840.114 350.1.13.10 4.2.7.2.686 [id number] 044 [id number] [facility] 2023-04-05 00:00:00 2023-04-05 00:00:00 [facility] BU[facility] 1.2.840.114 350.1.13.10 4.2.7.2.686 [id number] 044 [id number] [facility] 2023-04-03 00:00:00 2023-04-03 00:00:00 Telephone Carlos Ibrahim [facility] BUILDING 1.2.840.114 350.1.13.10 4.2.7.2.686 [id number] 044 [id number] [facility] 2023-04-03 00:00:00 2023-04-03 00:00:00 Patient Secure Msg Arun-Franklin [facility] BUILDING 1.2.840.114 350.1.13.10 4.2.7.2.686 [id number] 044 [id number] [facility] 2023-04-01 00:00:00 2023-04-01 00:00:00 Refill Obsuzanne-Franklin [facility] BUILDING 1.2.840.114 350.1.13.10 4.2.7.2.686 [id number] 044 [id number] [facility] 2023-03-02 00:00:00 2023-03-02 00:00:00 Refill Obi-Franklin [facility] BUILDING 1.2.840.114 350.1.13.10 4.2.7.2.686 [id number] 044 [id number] [facility] 2023-02-19 00:00:00 2023-02-19 00:00:00 Refill Obi-Franklin [facility] BUILDING 1.2.840.114 350.1.13.10 4.2.7.2.686 [id number] 044 [id number] [facility] 2023-01-26 00:00:00 2023-01-26 00:00:00 Patient Secure Msg Doctor Unassigned, [place] [facility] 1.2840.114 350.1.13.10 4.2.7.2.686 [id number] 044 [id number] [facility] 2023-01-24 15:00:00 2023-01-24 15:25:03 [facility] [id number] 2023-01-24 15:00:00 2023-01-24 15:25:03 Office [facility] BU[facility] 1.2.840.114 350.1.13.10 4.2.7.2.686 [id number] 044 [id number] [facility] 2023-01-16 00:00:00 2023-01-16 00:00:00 [facility]ill [facility] 1.2840.114 350.1.13.10 4.2.7.2.686 [id number] 044 [id number] [facility] 2023-01-15 00:00:00 2023-01-15 00:00:00 Orders Only Doctor Unassigned, [place] [facility] 1.2840.114 350.1.13.10 4.2.7.2.686 [id number] [id number] [facility] 2023-01-15 00:00:00 2023-01-15 00:00:00 Patient Secure Msg Doctor Unassigned, [place] [facility] 1.2840.114 350.1.13.10 4.2.7.2.686 [id number] 044 [id number] [facility] 2023-01-08 00:00:00 2023-01-08 00:00:00 [facility] 1.2.840.114 350.1.13.10 4.2.7.2.686 [id number] 044 [id number] [facility] 2023-01-06 00:00:00 2023-01-06 00:00:00 Orders Only Doctor Unassigned, [place] [facility] 1.2.840.114 350.1.13.10 4.2.7.2.686 [id number] [id number] [facility] 2023-01-05 00:00:00 2023-01-05 00:00:00 Telephone ObGadiel [facility] 1.2.840.114 350.1.13.10 4.2.7.2.686 [id number] 044 [id number] [facility] 2023-01-03 00:00:00 2023-01-03 00:00:00 Telephone [facility] 1.2.840.114 350.1.13.10 4.2.7.2.686 [id number] 044 [id number] [facility] 2023-01-01 00:00:00 2023-01-01 00:00:00 Patient Secure Msg Doctor Unassigned, [place] [facility] BUILDING 1.2.840.114 350.1.13.10 4.2.7.2.686 [id number] 044 [id number] [facility] 2022-12-28 00:00:00 2022-12-28 00:00:00 Patient Secure Msg [facility]lin [facility] 1.2.840.114 350.1.13.10 4.2.7.2.686 [id number] 044 [id number] [facility] 2022-12-26 00:00:00 2022-12-26 00:00:00 Telephone [facility]y [facility] BUILDING 1.2.840.114 350.1.13.10 4.2.7.2.686 [id number] 044 [id number] [facility] 2022-12-25 14:45:00 2022-12-25 15:00:00 Energy Conservation Specialist Visit 2, Adc Lab [facility] 1.2.840.114 350.1.13.10 4.2.7.2.686 [id number] [facility] 2022-12-25 14:00:00 2022-12-25 14:14:40 Outpatient R JESS MUNSON [facility] [id number] [facility] 2022-12-25 14:00:00 2022-12-25 14:14:40 Office [facility] 1.2.840.114 350.1.13.10 4.2.7.2.686 [id number] 044 [id number] [facility] 2022-12-19 10:00:00 2022-12-19 10:00:00 Outpatient R JESS MUNSON OBSuzanne-JESS REID [facility] [id number] [facility] 2022-07-19 15:30:00 2022-07-19 15:30:00 Outpatient R KAMILA MILAN [facility] [id number] [facility] 2022-04-14 10:00:00 2022-04-14 10:00:00 Outpatient R [facility] [id number] [facility] 2022-01-20 13:00:00 2022-01-20 14:43:14 Outpatient R JACINTA VOSS [facility] [id number] [facility] 2022-01-20 13:00:00 2022-01-20 14:43:14 Office Visit Provider, Meche Harvey Brenda A [facility] PRIVATE INQUIRY AGENT [facility] MATERNAL & CHILD [facility] 1.2.840.114 350.1.13.10 4.2.7.2.686 [id number] 107 [id number] [facility] 2022-01-16 10:45:00 2022-01-16 10:45:00 Outpatient MECHE SEGURA [facility] [id number] [facility] 2022-01-05 00:00:00 2022-01-05 00:00:00 Encounter 1.2.840.1 75242.1.1 3.104.2.7 .2.576190 1.2.840.114 350.1.13.10 4.2.7.2.696 [id number] [facility] 2022-01-03 00:00:00 2022-01-03 00:00:00 Orders Only Doctor Unassigned, [place] [facility] 1.2.840.114 350.1.13.10 4.2.7.2.686 [id number] [id number] [facility] 2021-12-29 00:00:00 2021-12-29 00:00:00 Patient Secure MsRodrick Townsend [facility] PRIVATE INQUIRY AGENT [facility] MATERNAL & CHILD [facility] 1.2.840.114 350.1.13.10 4.2.7.2.686 [id number] 107 [id number] [facility] 2021-12-22 07:45:00 2021-12-22 08:42:11 Outpatient JACINTA DAVIES [facility] [id number] [facility] 2021-12-22 07:45:00 2021-12-22 08:42:11 Routine Visit Provider, Jacinta Collins A [facility] PRIVATE INQUIRY AGENT [facility] & CHILD [facility] 1.2.840.114 350.1.13.10 4.2.7.2.686 [id number] 107 [id number] [facility] 2021-12-03 00:00:00 2021-12-03 00:00:00 Patient Secure Msg Doctor Unassigned, [place] [facility] 1.2.840.114 350.1.13.10 4.2.7.2.686 [id number] [facility] 2021-11-30 00:00:00 2021-11-30 00:00:00 Patient Secure g Yanci Rodrick Demetri [facility] PRIVATE INQUIRY AGENT [facility] & CHILD [facility] 1.2.840.114 350.1.13.10 4.2.7.2.686 [id number] 107 [id number] [facility] 2021-11-26 03:26:00 2021-11-29 10:05:00 Inpatient P VANESSA LEYVA [facility] CLEVE [id number] [facility] 2021-11-26 03:26:00 2021-11-29 10:05:00 Hospital Encounter Vanessa Leyva [facility] 1.2.840.114 350.1.13.10 4.2.7.2.686 [id number] 083 [id number] [facility] 2021-11-26 15:34:00 2021-11-27 08:48:00 Anesthesia Event Wilver Owens [facility] 1.2.840.114 350.1.13.10 4.2.7.2.686 [id number] 083 [id number] [facility] 2021-11-26 10:17:37 2021-11-26 10:17:37 Anesthesia Event Wilver Owens [facility] 1.2.840.114 350.1.13.10 4.2.7.2.686 [id number] 083 [id number] [facility] 2021-11-23 09:45:00 2021-11-23 10:25:58 Outpatient LOVE SANTA EMILY [facility] [id number] [facility] 2021-11-23 09:45:00 2021-11-23 10:25:58 [facility] Norton Emily J. [facility] PRIVATE INQUIRY AGENT [facility] & CHILD [facility] 1..840.114 350.1.13.10 4.2.7.2.686 [id number] 107 [id number] [facility] 2021-11-11 09:45:00 2021-11-11 10:12:23 Routine Visit Rodrick Pete [facility] PRIVATE INQUIRY AGENT [facility] & CHILD [facility] 1..840.114 350.1.13.10 4.2.7.2.686 [id number] 107 [id number] [facility] 2021-11-11 09:45:00 2021-11-11 10:12:23 Outpatient R RODRICK PETE [facility] [id number] [facility] 2021-11-11 00:00:00 2021-11-11 00:00:00 Patient Secure Msg Rodrick Pete [facility] PRIVATE INQUIRY AGENT [facility] & CHILD [facility] 1..840.114 350.1.13.10 4.2.7.2.686 [id number] 107 [id number] [facility] 2021-11-09 00:00:00 2021-11-09 00:00:00 Telephone Rodrick Pete [facility] PRIVATE INQUIRY AGENT [facility] & CHILD [facility] 1..840.114 350.1.13.10 4.2.7.2.686 [id number] 107 [id number] [facility] 2021-11-07 00:00:00 2021-11-07 00:00:00 Refill Rodrick Pete [facility] PRIVATE INQUIRY AGENT [facility] & CHILD [facility] 1..840.114 350.1.13.10 4.2.7.2.686 [id number] 107 [id number] [facility] 2021-10-27 17:35:00 2021-10-27 19:05:00 Outpatient X BRENDA VELÁSQUEZ [facility] [id number] [facility] 2021-10-27 17:35:00 2021-10-27 19:05:00 Emergency Brenda Velásquezu, K Maame [facility] 1.840.114 350.1.13.10 4.2.7.2.686 [id number] [id number] [facility] 2021-10-27 12:45:00 2021-10-27 13:34:39 Outpatient RODRICK DENNIS [facility] [id number] [facility] 2021-10-27 12:45:00 2021-10-27 13:34:39 Routine Visit Rodrick Pete [facility] PRIVATE INQUIRY AGENT [facility] CHILD [facility] 1..840.114 350.1.13.10 4.2.7.2.686 [id number] 107 [id number] [facility] 2021-10-27 12:45:00 2021-10-27 12:45:00 Outpatient RODRICK DENNIS [facility] [id number] [facility] 2021-10-27 00:00:00 2021-10-27 00:00:00 Orders Only Doctor Unassigned, [place] [facility] 1.840.114 350.1.13.10 4.2.7.2.686 [id number] [facility] 2021-10-26 00:00:00 2021-10-26 00:00:00 Abstract Rodrick Pete [facility] [employer] [employer] [facility] 1.840.114 350.1.13.10 4.2.7.2.686 [id number] 107 [id number] [facility] 2021-10-21 09:45:00 2021-10-21 10:30:00 Energy Conservation Specialist Visit Ultrasound, Vinh Stone [facility] [employer]IVATE [employer] [facility]ILD [facility] 1.840.114 350.1.13.10 4.2.7.2.686 [id number] [facility] 2021-10-21 09:45:00 2021-10-21 09:45:00 Outpatient P VINH MONCADA [facility] [id number] [facility] 2021-10-18 00:00:00 2021-10-18 00:00:00 Patient Secure Msg Doctor Unassigned, [place] [facility] [employer]ENT [facility] CHILD [facility] 1.0.114 350.1.13.10 4.2.7.2.686 [id number] 107 [id number] [facility] 2021-10-18 00:00:00 2021-10-18 00:00:00 Telephone Rodrick Pete [facility] [employer] [facility] CHILD [facility] 1..114 350.1.13.10 4.2.7.2.686 [id number] 107 [id number] [facility] 2021-10-14 08:00:00 2021-10-14 08:34:31 Outpatient R RODRICK PETE [facility] [id number] [facility] 2021-10-14 08:00:00 2021-10-14 08:34:31 Routine Visit Rodrick Pete [facility] 1.840.114 350.1.13.10 4.2.7.2.686 [id number] 107 [id number] [facility] 2021-09-29 10:45:00 2021-09-29 11:39:29 Outpatient R KIKI PETECUAUHTEMOC [facility] [id number] [facility] 2021-09-29 10:45:00 2021-09-29 11:39:29 Routine Visit Pete, Rodrick Mosquera [facility] [employer] [facility] 1.2.840.114 350.1.13.10 4.2.7.2.686 [id number] 107 [id number] [facility] 2021-09-29 10:45:00 2021-09-29 10:45:00 Outpatient R YANCI RODRICK [facility] [id number] [facility] 2021-09-16 00:00:00 2021-09-16 00:00:00 Patient Secure Msg Doctor Unassigned, [place] [facility] 1..840.114 350.1.13.10 4.2.7.2.686 [id number] [facility] 2021-09-16 00:00:00 2021-09-16 00:00:00 Telephone Pete, Rodrick Mosquera [facility] [employer] [facility] 1.2.840.114 350.1.13.10 4.2.7.2.686 [id number] 107 [id number] [facility] 2021-09-16 00:00:00 2021-09-16 00:00:00 Telephone PeteRodrick [facility] [employer] [facility] 1.2.840.114 350.1.13.10 4.2.7.2.686 [id number] 107 [id number] [facility] [facility] 2021-09-15 10:45:00 2021-09-15 11:53:13 Outpatient R PETERODRICK [facility] [id number] [facility] 2021-09-15 10:45:00 2021-09-15 11:53:13 Routine Visit Rodrick Pete [facility] PRIVATE [employer] AGENT [facility] CH[facility] 1.2840.114 350.1.13.10 4.2.7.2.686 [id number] 107 [id number] [facility] 2021-09-13 00:00:00 2021-09-13 00:00:00 Refill PeteRodrick [facility] PRIVATE IN[employer] AGENT [facility] 1.2840.114 350.1.13.10 4.2.7.2.686 [id number] 107 [id number] [facility] 2021-08-23 08:45:00 2021-08-23 22:46:00 Outpatient X BRENDA VELÁSQUEZ [facility] [id number] [facility] 2021-08-23 08:45:00 2021-08-23 22:46:00 Emergency MartinezIvanna stephenson Megan [facility] 1.0.114 350.1.13.10 4.2.7.2.686 [id number] [facility] 2021-08-18 10:30:00 2021-08-18 10:44:10 Outpatient R RODRICK PETE [facility] [id number] [facility] 2021-08-18 10:30:00 2021-08-18 10:44:10 Routine Visit Rodrick Pete [facility] PRIVATE IN[employer] AGENT [facility] 1.20.114 350.1.13.10 4.2.7.2.686 [id number] 107 [id number] [facility] 2021-08-11 00:00:00 2021-08-11 00:00:00 Patient Secure Msg Rodrick Pete [facility] PRIVATE [employer] AGENT [facility] 1.2840.114 350.1.13.10 4.2.7.2.686 [id number] 107 [id number] [facility] 2021-08-11 00:00:00 2021-08-11 00:00:00 Shefali Rodrick Pete [facility] PRIVATE [employer] AGENT [facility] 1.2.840.114 350.1.13.10 4.2.7.2.686 [id number] 107 [id number] [facility] 2021-08-11 00:00:00 2021-08-11 00:00:00 Shefali Rodrick Pete [facility] PRIVATE INQU[employer]Y AGENT [facility] CHILD [facility] 1.2.840.114 350.1.13.10 4.2.7.2.686 [id number] 107 [id number] [facility] 2021-08-11 00:00:00 2021-08-11 00:00:00 Shefali Rodrick Pete [facility] PRIVATE IN[employer] AGENT [facility] CHILD [facility] 1.2.840.114 350.1.13.10 4.2.7.2.686 [id number] 107 [id number] [facility] 2021-08-02 00:00:00 2021-08-02 00:00:00 Abstract Rodrick Pete [facility] PRIVATE IN[employer] AGENT [facility] CHILD [facility] 1.2.840.114 350.1.13.10 4.2.7.2.686 [id number] 107 [id number] [facility] 2021-08-01 00:00:00 2021-08-01 00:00:00 Patient Secure Msg Doctor Unassigned, [place] [facility] PRIVATE INQUIRY AGENT [facility] & CHILD [facility] 1.2.840.114 350.1.13.10 4.2.7.2.686 [id number] 107 [id number] [facility] 2021-07-29 09:30:00 2021-07-29 10:45:00 Energy Conservation Specialist Visit Ultrasound, Dylan-MfRodrick Kamara Antonio F [facility] PRIVATE IN[employer]Y AGENT [facility] CHILD [facility] 1.2.840.114 350.1.13.10 4.2.7.2.686 [id number] [facility] 2021-07-29 09:30:00 2021-07-29 09:30:00 Outpatient P [facility] [id number] [facility] 2021-07-29 09:30:00 2021-07-29 09:30:00 Outpatient P MADDIE ROMEO [facility] [id number] [facility] 2021-07-29 08:00:00 2021-07-29 08:36:27 Energy Conservation Specialist Visit Lab, Ang-Rmchp Rodrick Pete [facility] PRIVATE IN[employer] AGENT [facility] 1..840.114 350.1.13.10 4.2.7.2.686 [id number] 107 [id number] [facility] 2021-07-23 00:00:00 2021-07-23 00:00:00 Patient Secure Msg Doctor Unassigned, [place] [facility] 1..840.114 350.1.13.10 4.2.7.2.686 [id number] [facility] 2021-07-21 09:00:00 2021-07-21 10:12:55 Outpatient RODRICK DENNIS [facility] [id number] [facility] 2021-07-21 09:00:00 2021-07-21 10:12:55 Routine Visit Rodrick Pete [facility] PRIVATE [employer] AGENT [facility] 1..840.114 350.1.13.10 4.2.7.2.686 [id number] 107 [id number] [facility] 2021-07-21 09:00:00 2021-07-21 10:12:55 Outpatient RODRICK DENNIS [facility] [id number] [facility] 2021-07-21 09:00:00 2021-07-21 09:00:00 Outpatient RODRICK DENNIS [facility] [id number] [facility] 2021-07-21 09:00:00 2021-07-21 09:00:00 Outpatient R RODRICK PETE [facility] [id number] [facility] 2021-07-17 02:36:00 2021-07-17 06:54:00 Emergency X CARO BAUER [facility] ERT [id number] [facility] 2021-07-17 02:36:00 2021-07-17 06:54:00 Emergency Caro Bauer S [facility] 1.2.840.114 350.1.13.10 4.2.7.2.686 [id number] [facility] 2021-07-12 00:00:00 2021-07-12 00:00:00 Telephone Lolly Petejorge albertolos Demetri [facility] PRIVATE IN[employer]Y AGENT [facility] & CH[facility] 1.2.840.114 350.1.13.10 4.2.7.2.686 [id number] 107 [id number] [facility] 2021-07-06 00:00:00 2021-07-06 00:00:00 Telephone Rodrick Pete [facility] PRIVATE IN[employer] AGENT [facility] 1.2.840.114 350.1.13.10 4.2.7.2.686 [id number] 107 [id number] [facility] 2021-06-28 01:26:00 2021-06-29 10:10:00 Outpatient X BRENDA VELÁSQUEZ [facility] [id number] [facility] 2021-06-28 01:26:00 2021-06-29 10:10:00 Emergency Alayna Bear S Brenda Velásquez [facility] 1.2.840.114 350.1.13.10 4.2.7.2.686 [id number] [facility] 2021-06-27 20:49:00 2021-06-27 20:59:00 Emergency X [facility] ERT [id number] [facility] 2021-06-27 20:49:00 2021-06-27 20:59:00 Emergency [facility] 1.2.840.114 350.1.13.10 4.2.7.2.686 [id number] [facility] 2021-06-24 00:00:00 2021-06-24 00:00:00 Patient Secure Msg Rodrick Pete Demetri [facility] PRIVATE INQUIRY AGENT [facility] 1.2.840.114 350.1.13.10 4.2.7.2.686 [id number] 107 [id number] [facility] 2021-06-24 00:00:00 2021-06-24 00:00:00 Telephone Lolly Peteelsa Mosquera [facility] PRIVATE IN[employer] AGENT [facility] 1.2.840.114 350.1.13.10 4.2.7.2.686 [id number] 107 [id number] [facility] 2021-06-23 14:00:00 2021-06-23 15:33:45 Outpatient KIKI DENNISDAMARIELSA [facility] [id number] [facility] 2021-06-23 14:00:00 2021-06-23 15:33:45 Initial Visit Kiki Petedamarijorge albertolos Mosquera [facility] PRIVATE IN[employer] AGENT [facility] 1.2.840.114 350.1.13.10 4.2.7.2.686 [id number] 107 [id number] [facility] 2021-06-23 14:00:00 2021-06-23 15:33:45 Outpatient Demetri PETE, RODRICK [facility] [id number] [facility] 2021-06-23 14:00:00 2021-06-23 15:33:45 Outpatient Demetri PETERODRICK [facility] [id number] [facility] 2021-06-23 00:00:00 2021-06-23 00:00:00 Orders Only Doctor Unassigned, [place] [facility] 1.2840.114 350.1.13.10 4.2.7.2.686 [id number] [facility] 2021-06-22 08:04:00 2021-06-22 13:00:00 Emergency X ANGUS DWYER [facility] ERT [id number] [facility] 2021-06-22 08:04:00 2021-06-22 13:00:00 Emergency Angus Dwyer [facility] 1.2840.114 350.1.13.10 4.2.7.2.686 [id number] [facility] 2021-06-21 22:18:00 2021-06-21 23:26:00 Emergency Caro Bauer Alem [facility] 1.2840.114 350.1.13.10 4.2.7.2.686 [id number] [facility] 2021-06-21 22:18:00 2021-06-21 23:26:00 Emergency X CARO BAUER [facility] ERT [id number] [facility] 2021-06-21 22:18:00 2021-06-21 23:26:00 Emergency X CARO BAUER [facility] ERT [id number] [facility] 2021-06-11 12:44:00 2021-06-14 18:06:00 Inpatient X JOSE DE JESUS MEDINA [facility] [id number] [facility] 2021-06-11 12:44:00 2021-06-14 18:06:00 Hospital Encounter Abdullahi Gomez, Foreign Leyva, Jose De Jesus Vick [facility] 1.2840.114 350.1.13.10 4.2.7.2.686 [id number] [facility] 2021-05-30 23:49:00 2021-06-03 14:41:00 Hospital Encounter Abdullahi Gomez Shannon M [facility] 1.2.840.114 350.1.13.10 4.2.7.2.686 [id number] [facility] 2021-05-30 23:49:00 2021-06-03 14:41:00 Inpatient X EDITH TERRY SHANNON [facility] [id number] [facility] Results Test Description Test Time Test Comments Results Result Co mments Source [id number] 10:32:00* Test Item Value Reference Range Interpretation Comme nts POCT PREG (test code = 1605) Negative On board controls acceptable with C Line (test code = 3574) Yes POCT PREG LOT # (test code = 3575) 232001 POCT PREG TEST DATE ( test code = 3576) 2024-11-23 Lab Interpretation (test cod e = 82137-0) Normal [facility] [id number] 16:13:04* Test Item Value Reference Range Interpretation Comme [facility] Case Report (test code = 6085171929) Surgical Pathology ?Case: [id number] ? Authorizing Provider: ?Yisel Hart MD ?Collected: ? 12/24/2023 1057 ?Ordering Location: ? ? GI Endoscopy OR Department Received: ?12/24/2023 1148 ?Pathologist: ? Brendon Dawson MD PhD ?Specimen: ? ?STOMACH, 1. gastric biopsy ? Final Diagnosis (test code = 1263932873) [id number] zEwMzNcZnRuYmpcdWMxIHtccn DlRRceuKfmHSM8EZSnRY3llUv elPj3fCkgKJSgicQ4mFOmAWna t9wjVWP6y2hmnvmfEWBsZJzmC c6toGVaxPwrQwTvSLFyFGs9bK 91VKXkrA8uqFIqESp8RVBceOC stuAgTcZwFIVbeGFyaGO7EUBj SB5qughsGUacVFwdUOGexuJ3U GMgiDOiQ0PgJGUuRZ1fqyonTI F9ZCkeFTAqMKY9RjZyHQNbo9U wnxf9TwRoxGWlZIgxuGDvtiyp jcKwXKOdzoOIWyTOWH0KDQKWL NBHBC0RU3d2QPFlwjhapWD6EG JdEQfLP5JDPXAfBUREI7NZRNt EZFxgSp0gBSQLNY4VB6oLQ5HT YSDOGL6NULttEPDvRHPNFvZRQ 9KMIsjRAYIBIsHTVxNRD9SLRc XORU8WCSFEKNXIHRXhQJTKAqK JRklFRFxwYXIgLSBOTyBILiBQ WUxPUkktTElLRSBPUkdBTklTT VMgSURFTlRJRklFRFxwYXJccG FpJFibFDM2k9wxlPMzHYGfsAS mLdClKGGmFKRts9ksIKQrbEYt ZzEwMzNcZnRuYmpcdWMxXGRlZ sJel1zdh610qGOaj4dtWDTzPz T2mEYlHKGjhRenrtm9eYmxTzF qASXdp7xankWfHfVeONFnKGKn VZIacIKzX736LBEdANrgo0pzg 2ZeTIZghAKea5R4BNMGWFqhHm QgC320r9kni4puzgJthCA4UFO qRWN2NXdxisNuxqO9UUymyWHn OkF7EYymvfHbBZiobjTjabFbG qk2LBZtT611QJV3pDxqr1arTX O4FVXaAUNaDbvaOo4whBDaW70 2RHAhXNGEEDSqzUw9HPOuxrOu saKobHJOa024V038l9pfVJBsj wYuzWmBofvmn4qwE278HQDkaJ LiaoHjTdQcUEWpdSFisHX1TPI tRP9tsurqTRraCMzlAXAnruK1 UYOsmKQxJ8OvYUNeTZ5sytjgM AR0MZutPYSxMPY0LsOkVTKea0 Yqfpw1DnByme5wlx77LUD8d9J brEhcLGS2YOB1YxNwLn1ooEBx WYVsZX8iGwGwhYXiLIJhyg72p VhhRQjpdlUidZ4eByTvKWVjeJ XkQDTlBG3okLYwVXWxpI6olev jXHBnYnJkcmhlYWRccGdicmRy Bs5daXigOJH2CAikC8ishU2tS iQ3BFlxP4zzwD9iSVu1UOfvvP E4TYExwN3mBL8rmapze5exJQy qRFmvGHUtpzX3xtG0HSHqcTLa V1EsgK4xGDKiFM5eanybf0caK GC7OKwdCALuOIU5WvFkMEEkl9 Rytfb8SfBqv0GtyHPkLUvoB76 mj017SVFsugDvP8kcyFQxjwuk tXOttcutZIidbrI9HSVtRKUdX WluXGYxXGZzMjBcbGFuZzEwMz NcaGljaFxmMVxkYmNoXGYxXGx gH8xvQbSgY5OxYROmMiFcySCa GYrgqBC0BMDzXMNni93ewHv2Q WJrljetc1YySMLayLYyvLIukS 4hvhEsa8wvIUNcCCJhUDQfP1J qGDU6jDVyBJNjfFJmrEQ0DJ2x kgPpHS8dPATbYuuqibOhvTVjp fAzRECwLOmkp1oxKP4yGHHoaQ xvyG4lpCO4FQPcc0mwqVHmfAW md3mvm1XpbhVbVTgaOLLzEHah JHPuIWWvZD2yDRWsfLYuekXlh 7M9SbpgkESqwfssOnhyzeM6MM dhrblsTEZwODmhT4ngFhSbJTF zdDlzZvmbk0IdIYFqAIDzFrol cGFyfX0= Clinical Information (test code = 0409903108) Lanre Bales is a 28 year old femaleHematemesis with nausea [K92.0]Coffee ground emesis [K92.0]Abdominal pain, epigastric [R10.13]1. gastric biopsy eval H pylori Gross Description (test code = 3163998708) r6lpnHCoEMZcrJTKULY4ZLItA Y7gzPgwzYb5qPwaFBNxasO2dI PmCTjbv0tcMJV6x1plchDULqt uLLKxMY5hJXldMWWnNW5yKhIp XGRlZmYxXHBhcGVydzEyMjQwX AUewKFzxBP5GZIjEZ1ouuyzDF guILtaBSVfgoE8ZVCxtQNmV5A pENKcTY6icoigRBL2MUMWEigs Xl6cjHUrgHueQtEpHdZzOWDnW ZVmVQEzh8blwqSAbvndeHt4nA 4WSACeY0XqNO6Ad9ahFXFluSC yBGG3DKmwj6bmSOabUJV6DICi WWBsXJCmZV5MPfDtKKB3LNu6E GMeCgG9OCb6MBTXRXBcSEI9FI E7NbH4JUn3MQXkVA3bTBqplFC sGZjcJzsaFKatZ949PVoeCZOt J3GgS7UhMYovEqHvQBwoEXSnV SZvSSrsOJBlA0TTBWVrXAJ0DL I3WUVfLXq8QTq1XS4XKwFeXEV fUju7FaI4CMPfTEi5RNrjVA3X KAUyEXC3NVepTnSxIPXcAAWtS Yn7KAIhNQmlsnRaIXsvHwmrFI xbQ81rrLJqOFKXVxqbyDSrafl mczIwIFNQRUNJTUVOIEFcbHRy W5bhLtRrPybkMHCxZNaroBWrF CANClxwbGFpblxsdHJjaFxmcz RfATEcxNILDGY3XT8fCGLODii xbTSvDHGlSSePcUFzmK4bqaRW XRzjJWNsO5ZkjuMoLAsgNWLik w6zsUkcDYvnOcGbuQQpIOgtjU nauCtoKQQhoNmiziJfE5O9nhJ bZN1fKXWRWGHwrP4qAAPeGZMb y3FvxZAqrJhoK8MyeBWnGoWcg E8vn9txD5H1RTrPEXEevaPfW8 9yz1adgMHdo0GqKtE7BW4wyCs yhqJoovTcT2KgDWRae33toEE5 mTLonSWjOgAoP45cuuUgZSzxD xBoQQ06AHGmCTwoYDN8PDE4EW JvtBIea9mxxxbcMJ91GKtwCQ3 0PZhxSR7bCQMlGOsyOPCuI9Lt O2G0EOsrGWJtEKGozKPbkT9gq yBpwmTgvVr4UEEaLLP0oNVhcQ aaHOWmSjwyxDK0BUGmViKbyiR bc1LikTk2gYDhWFfbONXbvK3d vK7xGUCiCIVyxdQSKmxrKJRwC Nisu3EaLOkxePgvALTrOwXtBK nUoEmfQUSAI7sbaUVzOTqnVOK WLWvIZ6MKNI2COXSxdPBPBAY6 QP7aRLbjIPDvR9MzB7BthdL8d 4wgzZaox9XrzWBsDB7nwTYtBS 6CNNVvhpDeHGy7 Disclaimer (test code = 5411967834) n2ewrQVmWZAjt5wjEQIdpEGeY zEwMzNcZnRuYmpcdWMxIHtccn CuDCbcl8SxI9XiYkAyFCchgtX rJECtQxjacgedPKEzUYI2tyTw GFDuUGzoIYRvFXpjIj3toCUhz XtaZbZaKRFhc0itinEOYCydSn DtL732DRCuJWgcf8orv7XpNEA gcYRuf7D9LPQCmwigaYz9hGgc V91rj3H0FfafB4axLLJhIPZpA 9XvBV2aIAQcFtk6MCY0KFF4DZ YvVTEhH1JcVD1gLKEriQTrXSv 0p8lsrEpsIEKvFEH4j2etOKcx kvBzTX4pjd0fjHy5r3gupcNsP MEeEWCogLYZNRRvQ4YlxCnsYk 3xaXx6iHuuIdrpLBN3Elt2YA0 ilo75zpi1jDyoNILfremdHtJ4 VOcdPSEyrpozTHt1BHorQZAoe MQ9OMBkyUSqY0TdVWOdVK9mqq p2RMG7FNrcOBQoYsU5CWPzxUF bLGSpuJuoWXysj700EKC4XqDp GD6iT5Dpz2O0vM8zjMUnUKZam UPlThJoVIKiip6trPMeCToqb9 MxBOW1edW0tOHnbWPeWNTlRE3 8Gpnqz5FmUiyvf5FvT70bqPK9 UFhip1utWH9vCqC4opUsFZxeh 9npcU7qJfZ7YViyXC9hUM0vOH YwpO6jrzbkDRUeElXpoytwQEL wxPpqbjEbAw3kmYxiBER7RJun P3uclH0yPvV2XGgzX6fblQ4aS Ew7BMhloBX1VVKkqJ1fII3cni zbc6qoUQmuCXefSAYxyqG1ksO 6VTMgaHUrD6HmdM6yIUChXU7x mhonj1hzCJB4STpuPEDlANV7K oSzBGIpo5Ieqln3KkJjg9UgzJ JbESekX43wt218NHJmkwOqQ4k wbGFpblxwbGFpblxmMFxmczI0 QMBdgzOjt2TrMSZgKEN2SEhpF MulnIVeCEVqvXqjr0naH0AhxJ FyXHBsYWluXGYxXGZzMjBcbGF uZzEwMzNcaGljaFxmMVxkYmNo OVBaTDpfA8ymZqShT0LgTQSmT iAluAElJ2mxPQhvrlScVTTnzu KseES6PXseK8j1WZJcqzAxqEz 7qjQpCjPtZDVzHXE8CSvadRUd FLTwb7NytmrwtFZsSh3kyYDlW UNfwU8qRZUgFUUoQCidRN8lpC q7EAHIqIWnfEDaLhCMYDIeEE1 0nqDeRNCMpuixl2Z6OIwiMKIg b8NonCPxN3yyz0MaPYCsa66pL Z6uz2F3q9tjDHY9WC6vm6FjVU XzfNOyjOLbLPHrp2Apigccl1R sMDOcnmLqp9NdXVTtoiJlaQFm JFFqxqEszb7pxnSfIJGhOIFaE 0ZzqlpwhQmqxdDaGMVelv1req QfZEX7BATIUZKlBUJyl2CjjS5 nwQHTDBG7gVMczs1jhwPPaYZo BTAzoi40PJMkVQ8wB7ruLOSiH OPxecEnlOCov6TbFORqhIE0sM MhUY7INrFJn60rYIVwYVYVqvJ lSPWlbOhtpMW2clJ4jX3fRCbO REEpLlx+SRAvGDXYSIToLS8uq kNqs9AlxeSohAazSBVrjZXjb0 NroHFup0SjiXnpk1SsuTAxoSH mRC0rOQDpevvaMXOmFHZPAbQD AYZfjnB6i0VhRPIrEDQrXIE6a Tycfnz6KNOtrF5qMBWsT0ftmf lxFFtaLDIrk2JxkS1woDUXuSH aw8GciFWayLCAdXFwWB4nfaGs UMaVSFmEMMR3ycShAWDqd0ElV GnjH8wuS23sfTqvuYq6iWI7NP K8hH6uRze+IFxwYXJccGFyIEF hpSKqgIUpXGPreCiyqhJqO9Ra owNsmI0fwZJmwpKrQR7gWL5fY 5Q7xWVkLJBgipYlq3qlSVdudr CgUyPcnhWkKEPjSQynNAYiy8N oMAozMME4PGuadpHijhDyuPCp duqsCLNTBFANdBUnoMLnNIE6G UxlakYdvzOzLG8puV8gqGtvoI 3foPXhaCB0ifqxFVTmLQDgeVq zBRWjYV6ewByfzS2mKbTfAxPc WGdjGU3hYXVvH5phwPPvBFHcH MSkN8svMeKrkD3suGmaKZbnSh JcZnMyMFxwYXJccGFyXHBsYWl uXGYxXGZzMjBcbGFuZzEwMzNc aGljaFxmMVxkYmNoXGYxXGxvY 8rvKwQfV1AsDCLvGyIzpGCgS8 ljXGfvINF7BXRpPV1hgIAqKG2 0aGCzq5hwGEcyoIyuro1cZ27w eRXhZTdxrIuoAHTrz88xy4RwF AHxcuHgyn4pMNLsszC1oX7qFQ QuxGnoRNQeiXCaMQBpm9QwVNo naXRpemVkIGdsYXNzIHNsaWRl crB7vxUfbaFkanNdQPCrzYhvC LAst1LwEGGnBDzgi0Vtvn0puV PhAOJiemNNzSzqfOAmtH7cX5F lZUUrQXMocd0iDBOmlP4mAPci k3MnkixaIUTrJZUzPLCxjuZkh m3iSJAptKYHWK8ZXZerfFOrb9 UwmuZaS9iMQZK3ULUjNmJbAhv lWZPcsLYghBFkJWLmoh66YXFs qB1teVovSGRkuD7liP5coBogv U2xWjYuNgWeYPrbRQ7fMRPxJ9 liuIRzWRFuKARzF1ziSpVlnT5 jaFxmMVxjZjJcZnMyMFxwYXJ9 fQ== Embedded Images (test code = 1422634315) [facility] OVARY [id number] 16:40:41EXAM: US OVARY TORSION HISTORY: 28 years-old Female; Provided indication: eval for torsion; pelvicpain; bilateral 5.1cm cysts seen on CT . LMP = 4Pregnancy test = Negative. TECHNIQUE: Transabdominal and transvaginal ultrasound imaging and colorDoppler evaluation of the pelvis was performed. Spectral Doppler evaluationof the ovaries was performed. Parts Chaser images were obtained for therecord. COMPARISON: Same [...] arevisualized. Normal flow is seen on color Doppler.[facility] W [id number] 14:33:00Indication: Nausea/vomiting ? Comparison: None RL: [id number] ORDERING PHYSICIAN: ?CARO ?XIMENA TECHNIQUE: Axial CT images of the abdomen [...] soft tissue: No acute osseous abnormality is noted.[facility]Pregnancy Test, [id number] 11:59:46* Test Item Value Reference Range Interpretation Comme nts PREG SERUM (test code = 4485380069) Negative RUMA (test code = RUMA) Less than 10 IU/L. ?If low titer or ectopic is suspected, resubmit specimen in 48-72 hours. [facility] Metabolic [id number] 11:58:40* Test Item Value Reference Range Interpretation Comme nts NA (test code = 8457384350) 138 mmol/L 135-145 K (test code = 8483109093) 3.5 mmol/L 3.5-5.0 CL (test code = 8913149951) 106 mmol/L 98-108 CO2 TOTAL (test code = 5217946634) 23 mmol/L 23-31 AGAP (test code = 2909594437) 9 2-16 BUN (test code = 1425492978) 6 mg/dL 7-23 L GLUCOSE (test code = 9703418943) 122 mg/dL 70-110 H CREATININE (test code = 2160-0) 0.61 mg/dL 0.50-1.04 TOTAL BILI (test code = 9207046276) 0.6 mg/dL 0.1-1.1 CALCIUM (test code = 8122190245) 9.0 mg/dL 8.6-10.6 T PROTEIN (test code = 2174740046) 8.1 g/dL 6.3-8.2 ALBUMIN (test code = 8650984760) 4.4 g/dL 3.5-5.0 ALK PHOS (test code = 4845854909) 85 U/L 34-122 ALTv (test code = 1742-6) 20 U/L 5-35 AST(SGOT) (test code = 0799924255) 19 U/L 13-40 eGFR (test code = 35926-0) 125.8 mL/min/1.73m2 CKD-EPI eGFR (2020). Assuming creatinine has been stable day-to-day for at least three months, the eGFR indicates Category G1 (>= 90 mL/min/1.73 m2) Lab Interpretation (test code = 95252-2) [facility]normal [facility], [id number] 11:58:19* Test Item Value Reference Range Interpretation Comme nts LIPASE (test code = 3840103694) 40 U/L 0-220 Lab Interpretation (test cod e = 87595-5) Normal [facility] with [id number] 11:41:57* Test Item Value Reference Range Interpretation [...] 32.8 g/dL 31.6-35.1 RDW-SD (test code = 20677-2) 51.3 fL 39.0-49.9 H RDW-CV (test code = 788-0) 13.7 % 12.0-15.5 PLT (test code = 777-3) 349 166-358 MPV (test code = 05345-9) 9.3 fL 9.5-12.9 L NRBC/100 WBC (test code = 0413582976) 0.0 0.0-10.0 NRBC x10^3 (test code = 0723229247) See_Comment [Automated messa ge] The system which generated this result transmitted reference range: 10*3/?L. The reference range was not used to interpret this result as normal/abnormal. GRAN MAT (NEUT) % (test code = 770-8) 73.3 % IMM GRAN % (test code = 3581062148) 0.40 % LYMPH % (test code = 736-9) 19.0 % MONO % (test code = 5905-5) 4.8 % EOS % (test code = 713-8) 2.0 % BASO % (test code = 706-2) 0.5 % GRAN MAT x10^3(ANC) (test code = 5489082643) 7.18 10*3/uL 1.88-7.09 H IMM GRAN x10^3 (test code = 6990633439) 0.04 10*3/uL 0.00-0.06 LYMPH x10^3 (test code = 731-0) 1.86 10*3/uL 1.32-3.29 MONO x10^3 (test code = 742-7) 0.47 10*3/uL 0.33-0.92 EOS x10^3 (test code = 711-2) 0.20 10*3/uL 0.03-0.39 BASO x10^3 (test code = 704-7) 0.05 10*3/uL 0.01-0.07 Lab Interpretation (test code = 29019-9) [facility]normal [facility]. METABOL[facility] PANEL (09709)2023-11-08 17:45:25* Test Item Value Reference Range Interpretation Comme nts NA (test code = 3511914534) 136 mmol/L 135-145 K (test code = 1741890418) 3.1 mmol/L 3.5-5.0 L CL (test code = 4622576299) 105 mmol/L 98-108 CO2 TOTAL (test code = 8984982632) 21 mmol/L 23-31 L AGAP (test code = 3657730307) 10 2-16 BUN (test code = 1906459617) 12 mg/dL 7-23 GLUCOSE (test code = 2711548875) 92 mg/dL 70-110 CREATININE (test code = 2160-0) 0.57 mg/dL 0.50-1.04 TOTAL BILI (test code = 4163695191) 0.6 mg/dL 0.1-1.1 CALCIUM (test code = 5128435606) 9.0 mg/dL 8.6-10.6 T PROTEIN (test code = 7133968238) 8.0 g/dL 6.3-8.2 ALBUMIN (test code = 0030516191) 4.3 g/dL 3.5-5.0 ALK PHOS (test code = 8800480624) 81 U/L 34-122 ALTv (test code = 1742-6) 17 U/L 5-35 AST(SGOT) (test code = 5943899738) 45 U/L 13-40 H eGFR (test code = 34080-8) 127.9 mL/min/1.73m2 CKD-EPI eGFR (2020). Assuming creatinine has been stable day-to-day for at least three months, the eGFR indicates Category G1 (>= 90 mL/min/1.73 m2) Lab Interpretation (test code = 71119-5) [facility]normal [facility]2024-[facility]-19 16:30:35* Test Item Value Reference Range Interpretation Comme nts LIPASE (test code = 3202359605) 53 U/L 0-220 Lab Interpretation (test cod e = 71367-1) Normal [facility] WITH [id number] 16:15:57* Test Item Value Reference Range Interpretation [...] 33.1 g/dL 31.6-35.1 RDW-SD (test code = 27305-6) 50.1 fL 39.0-49.9 H RDW-CV (test code = 788-0) 13.8 % 12.0-15.5 PLT (test code = 777-3) 471 166-358 H MPV (test code = 31539-1) 9.2 fL 9.5-12.9 L NRBC/100 WBC (test code = 3216949795) 0.0 0.0-10.0 NRBC x10^3 (test code = 3765439166) See_Comment [Automated messa ge] The system which generated this result transmitted reference range: 10*3/?L. The reference range was not used to interpret this result as normal/abnormal. GRAN MAT (NEUT) % (test code = 770-8) 77.8 % IMM GRAN % (test code = 7123155595) 0.30 % LYMPH % (test code = 736-9) 16.7 % MONO % (test code = 5905-5) 4.7 % EOS % (test code = 713-8) 0.2 % BASO % (test code = 706-2) 0.3 % GRAN MAT x10^3(ANC) (test code = 2842282450) 9.31 10*3/uL 1.88-7.09 H IMM GRAN x10^3 (test code = 8752723434) 0.04 10*3/uL 0.00-0.06 LYMPH x10^3 (test code = 731-0) 1.99 10*3/uL 1.32-3.29 MONO x10^3 (test code = 742-7) 0.56 10*3/uL 0.33-0.92 EOS x10^3 (test code = 711-2) 0.03-0.39 L BASO x10^3 (test code = 704-7) 0.03 10*3/uL 0.01-0.07 Lab Interpretation (test code = 08367-2) Abnormal [facility] [id number] 16:01:00* Test Item Value Reference Range Interpretation Comme nts POCT PREG (test code = 1605) Negative On board controls acceptable with C Line (test code = 3574) Yes POCT PREG LOT # (test code = 3575) [id number] POCT PREG TEST DATE ( test code = 3576) 11-28-24 Lab Interpretation (test cod e = 88616-8) Normal [facility] [id number] 16:30:00* Test Item Value Reference Range Interpretation Comme nts POCT PREG (test code = 1605) Negative On board controls acceptable with C Line (test code = 3574) Yes POCT PREG LOT # (test code = 3575) [id number] POCT PREG TEST DATE ( test code = 3576) 03/28/2024 Lab Interpretation (test cod e = 02252-5) Normal [facility] [id number] 20:18:00* Test Item Value Reference Range Interpretation Comme nts POCT PREG (test code = 1605) Negative On board controls acceptable with C Line (test code = 3574) Yes POCT PREG LOT # (test code = 3575) POCT PREG TEST DATE ( test code = 3576) [facility] [id number] 20:18:00* Test Item Value Reference Range Interpretation Comme nts POCT PREG (test code = 1605) Negative On board controls acceptable with C Line (test code = 3574) Yes POCT PREG LOT # (test code = 3575) POCT PREG TEST DATE ( test code = 3576) [facility] - [id number] 04:42:10* Test Item Value Reference Range Interpretation Comme nts RPR (Qualitative) (test code = 98533-6) Nonreactive Nonreactive Lab Interpretation (test cod e = 13854-3) Normal [facility] Surface [id number] 17:49:35 * Test Item Value Reference Range Interpretation Comme nts HBsAg Semi-Quantitative (mesha t code = 5195-3) Negative Negative [facility] AG-AB WITH [id number] 12:19:16* Test Item Value Reference Range Interpretation Comme nts HIV Semi-quantitative (test code = 19585-6) Negative Negative RUMA (test code = RUMA) Non-reactive for HIV-1 antigen and HIV-1/HIV-2 antibodies. ?No laboratory evidence of HIV infection. ?Repeat in 2-4 weeks if acute HIV infection is suspected. [facility] MET[facility]OLIC PANEL (23237)2021-11-26 11:29:08* Test Item Value Reference Range Interpretation Comme nts NA (test code = 2580102928) 137 mmol/L 135-145 K (test code = 8802347894) 3.6 mmol/L 3.5-5 CL (test code = 7776276163) 105 mmol/L 98-108 CO2 TOTAL (test code = 3870462251) 21 mmol/L 23-31 L AGAP (test code = 3091492880) 2-16 BUN (test code = 2845958483) 4 mg/dL 7-23 L GLUCOSE (test code = 3456698066) 93 mg/dL 70-110 CREATININE (test code = 4896469579) 0.49 mg/dL 0.5-1.04 L TOTAL BILI (test code = 7215365630) 0.2 mg/dL 0.1-1.1 CALCIUM (test code = 0386996214) 9.0 mg/dL 8.6-10.6 T PROTEIN (test code = 6514500439) 6.9 g/dL 6.3-8.2 ALBUMIN (test code = 7959911280) 3.7 g/dL 3.5-5 ALK PHOS (test code = 7045513020) 169 U/L 34-122 H ALTv (test code = 1742-6) 15 U/L 5-35 AST(SGOT) (test code = 3512607333) 23 U/L 13-40 eGFR (test code = 3319693749) mL/min/1.73m2 RUMA (test code = RUMA) Association [...] imaging tests). Lab Interpretation (test code = 00888-5) [facility]normal [facility] [id number] 11:28:48* Test Item Value Reference Range Interpretation Comme nts URIC ACID (test code = 9512180563) 3.4 mg/dL 2.9-6 Lab Interpretation (test cod e = 71094-6) Normal [facility] [id number] 11:24:10* Test Item Value Reference Range Interpretation Comme nts LDH (test code = 6594625960) 216 U/L 120-246 Lab Interpretation (test cod e = 16099-8) Normal [facility] and Screen - ONCE [id number] 10:30:18 * Test Item Value Reference Range Interpretation Comme nts ABO & RH (test code = 20) O Positive Performed at [facility] Laboratory [facility] Blood [address] [place], [place] [address]Toll Free: [phone] No. [id number] IAT (test code = 1185) Negative Performed at [facility] Blood [address] [place] [address] Free: [phone] No. [id number] [facility] with [id number] 09:46:38* Test Item Value Reference Range Interpretation [...] 34.9 g/dL 31.6-35.1 RDW-SD (test code = 53781-9) 40.9 fL 39-49.9 RDW-CV (test code = 788-0) 12.2 % 12-15.5 PLT (test code = 777-3) See_Comment [Automated messa ge] The system which generated this result transmitted reference range: 166 - 358 10*3/?L. The reference range was not used to interpret this result as normal/abnormal. MPV (test code = 99226-5) 9.9 fL 9.5-12.9 NRBC/100 WBC (test code = 2480306892) See_Comment [Automated me ssage] The system which generated this result transmitted reference range: 0.0 - 10.0 /100 WBCs. The reference range was not used to interpret this result as normal/abnormal. NRBC x10^3 (test code = 2082669434) See_Comment [Automated messa ge] The system which generated this result transmitted reference range: 10*3/?L. The reference range was not used to interpret this result as normal/abnormal. GRAN MAT (NEUT) % (test code = 770-8) 70.4 % IMM GRAN % (test code = 3420160860) 0.70 % LYMPH % (test code = 736-9) 20.1 % MONO % (test code = 5905-5) 6.0 % EOS % (test code = 713-8) 2.5 % BASO % (test code = 706-2) 0.3 % GRAN MAT x10^3(ANC) (test code = 4096216795) 8.92 10*3/uL 1.88-7.09 H IMM GRAN x10^3 (test code = 3641892242) 0.09 10*3/uL 0-0.06 H LYMPH x10^3 (test code = 731-0) 2.55 10*3/uL 1.32-3.29 MONO x10^3 (test code = 742-7) 0.76 10*3/uL 0.33-0.92 EOS x10^3 (test code = 711-2) 0.32 10*3/uL 0.03-0.39 BASO x10^3 (test code = 704-7) 0.04 10*3/uL 0.01-0.07 Lab Interpretation (test code = 22134-8) Abnormal [facility] URINALYSIS W SPECIFIC [id number] 14:56:00* Test Item Value Reference Range Interpretation [...] POCT U APPEAR (test code = 3267) [facility] URINALYSIS W SPECIFIC [id number] 14:56:00* Test Item Value Reference Range Interpretation [...] POCT U APPEAR (test code = 3267) [facility] URINALYSIS W SPECIFIC [id number] 14:58:00* Test Item Value Reference Range Interpretation [...] POCT U APPEAR (test code = 3267) [facility] URINALYSIS W SPECIFIC [id number] 14:58:00* Test Item Value Reference Range Interpretation [...] POCT U APPEAR (test code = 3267) [facility] URINALYSIS W SPECIFIC [id number] 14:58:00* Test Item Value Reference Range Interpretation [...] POCT U APPEAR (test code = 3267) [facility] URINALYSIS W SPECIFIC [id number] 14:58:00* Test Item Value Reference Range Interpretation [...] POCT U APPEAR (test code = 3267) [facility] URINALYSIS W SPECIFIC [id number] 14:58:00* Test Item Value Reference Range Interpretation [...] POCT U APPEAR (test code = 3267) [facility]IFIC [id number] 18:21:00* Test Item Value Reference Range Interpretation [...] POCT U APPEAR (test code = 3267) [facility] History and Physical Notes Date/Time Note Provider Source 2024-01-29 09:03:32 Patient seen and examined in the preop/DSU area. No changes in history and physical from our note below. -OR today for laparoscopic cholecystectomy -NPO past midnight -Surgical consent signed Kiko Belcher MD 01/29/2024 9:03 AM PGY4, General Surgery [facility] Associated attestation - Eva Bryan MD - 01/29/2024 10:25 AM RN [facility] Attending Attestation: I personally evaluated and examined the patient on 01/29/[address] Ye's interval note as written. I actively participated in the decision-making process. Please see the resident's note for additional details. Seen in ED for similar abdominal pain prior to surgery, otherwise has been doing well. Consent signed and in chart. Proceed with laparoscopic cholecystectomy. Eva Bryan M.D. 01/29/2024 10:24 Source Note - Eva Bryan MD - 01/07/2024 11:15 AM RN [facility] Images from the original note were not included. GENERAL SURGERY CLINIC NOTE Reason for Visit / Chief Complaint: Abdominal pain, gallstones History of Present Illness: Lanre Bales is a 28 year old female with PMHx as below who presents for evaluation of abdominal pain and gallstones. She was seen at [facility] ED in 11/08/2023 for vomiting. Work up demonstrated a mildly elevated WBC to 11.95, K 3.1. No imaging was obtained. She was treated with IVF's, antiemetics, and electrolyte replacement. She was given PO challenge and discharged. She returned on 11/18/2023 for evaluation upper abdominal pain and nausea with vomiting. Labs were essentially unremarkable. Pelvic US demonstrated a right ovarian cyst and a CT scan was unremarkable. Patient was treated with IVF's, pain medication, and antiemetics with improvement of her symptoms and discharged with Gynecology referral for the ovarian cyst. She developed similar symptoms of abdominal pain associated with nausea and vomiting and presented to [facility] on 01/01/2024. An US was obtained which demonstrated gallstones and sludge without cholecystitis. She was treated for her symptoms and discharged with instructions to find a surgeon. Past Medical History: Past Medical History: Diagnosis Date Endometriosis Papanicolaou smear of cervix with low grade squamous intraepithelial lesion (LGSIL) 07/06/2021 Tetrahydrocannabinol (THC) use disorder, mild, abuse 06/28/2021 Past Surgical History: Past Surgical History: Procedure Laterality Date ESOPHAGOGASTRODUODENOSCOPY N/A 12/24/2023 Surgeon: Yisel Hart MD; Location: ENDOSCOPY ([facility]) OR LOCATION Allergies: Allergies Allergen Reactions Reglan [Metoclopramide] Extra pyramidal effects Eggs [Egg] Unknown - See comments Medications: Patient's Medications START taking these medications No medications on file CONTINUE taking these medications which have NOT CHANGED ERGOCALCIFEROL, VITAMIN D2, (VITAMIN D2) 1,250 MCG (50,000 UNIT) CAPSULE Take 1 capsule by mouth weekly. ONDANSETRON 4 MG DISINTEGRATING TABLET Take 1 tablet by mouth every 8 (eight) hours as needed for Nausea and Vomiting (N/V). ONDANSETRON 4 MG TABLET Take 1 tablet by mouth every 8 (eight) hours as needed for Nausea and Vomiting (N/V). PANTOPRAZOLE 40 MG EC TABLET Take 1 tablet by mouth in the morning. PHENTERMINE 37.5 MG TABLET Take 1 tablet by mouth daily with breakfast. PROMETHAZINE 25 MG TABLET Take 1 tablet by mouth every 6 (six) hours as needed for Nausea and Vomiting (N/V). TRAMADOL 50 MG TABLET Take 1 tablet by mouth every 6 (six) hours as needed (pain). Indications: acute pain TRAZODONE 100 MG TABLET TAKE 1 TABLET BY MOUTH EVERYDAY AT BEDTIME ZOLPIDEM 5 MG TABLET Take 1 tablet by mouth at bedtime as needed for Insomnia. START taking Modified Medications as Prescribed No medications on file STOP taking these medications No medications on file Current Outpatient Medications Medication Sig Dispense Refill ergocalciferol, vitamin d2, (VITAMIN D2) 1,250 mcg (50,000 unit) capsule Take 1 capsule by mouth weekly. 12 capsule 0 phentermine 37.5 mg tablet Take 1 tablet by mouth daily with breakfast. 30 tablet 0 zolpidem 5 mg tablet Take 1 tablet by mouth at bedtime as needed for Insomnia. 30 tablet 0 ondansetron 4 mg disintegrating tablet Take 1 tablet by mouth every 8 (eight) hours as needed for Nausea and Vomiting (N/V). 15 tablet 0 ondansetron 4 mg tablet Take 1 tablet by mouth every 8 (eight) hours as needed for Nausea and Vomiting (N/V). 15 tablet 0 TRAZODONE 100 mg tablet TAKE 1 TABLET BY MOUTH EVERYDAY AT BEDTIME 90 tablet 0 pantoprazole 40 mg EC tablet Take 1 tablet by mouth in the morning. 90 tablet 0 proMETHazine 25 mg tablet Take 1 tablet by mouth every 6 (six) hours as needed for Nausea and Vomiting (N/V). 20 tablet 0 traMADoL 50 mg tablet Take 1 tablet by mouth every 6 (six) hours as needed (pain). Indications: acute pain 28 tablet 0 No current facility-administered medications for this visit. Family History: Family History Problem Relation Age of Onset Diabetes Mother Heart Mother cardiomyopathy No Significant Medical Problems Father No Significant Medical Problems Sister No Significant Medical Problems Brother Social History: Social History Socioeconomic History Marital status: Single Tobacco Use Smoking status: Former Passive exposure: Never Smokeless tobacco: Never Tobacco comments: marijuana,no nicotine stopped for Vaping Use Vaping status: Every Day Substances: Nicotine Substance and Sexual Activity Alcohol use: Yes Comment: ocassional Drug use: Not Currently Types: Marijuana Comment: stopped for Sexual activity: Yes Partners: Male control/protection: None Social History Narrative Patient lives with mother and child, FOB involved. Islam preference: Adventist. Has one cat, educated about [place] litter and toxoplasmosis. Social Determinants of Health Financial Resource Strain: Medium Risk (12/19/2022) Overall Financial Resource Strain (CARDIA) Difficulty of Paying Living Expenses: Somewhat hard Food Insecurity: No Food Insecurity (12/19/2022) Hunger Vital Sign Worried About Running Out of Food in the Last Year: Never true Ran Out of Food in the Last Year: Never true Transportation Needs: Unmet Transportation Needs (12/19/2022) PRAPARE - Transportation Lack of Transportation (Medical): No Lack of Transportation (Non-Medical): Yes Physical Activity: Insufficiently Active (12/19/2022) Exercise Vital Sign Days of Exercise per Week: 4 days Minutes of Exercise per Session: 10 min Stress: No Stress Concern Present (12/19/2022) [place] [employer]ational [employer] - Occupational Stress Questionnaire Feeling of Stress : Not at all Social Connections: Moderately Integrated (12/19/2022) Social Connection and Isolation Panel [NHANES] Frequency of Communication with Friends and Family: More than three times a week Frequency of Social Gatherings with Friends and Family: Twice a week Attends Islam Services: 1 to 4 times per year Active Member of Clubs or Organizations: No Attends Club or Organization Meetings: Never Marital Status: Living with partner Housing Stability: High Risk (12/19/2022) Housing Stability Vital Sign Unable to Pay for Housing in the Last Year: Yes Number of Places Lived in the Last Year: 2 Unstable Housing in the Last Year: No Review of Systems: A 14 point ROS was obtained, only positive responses are in BOLD Constitutional: Fever, chills, loss of appetite, fatigue, unexplained weight loss, unexplained weight gain, weakness Head/Ears/Nose/Mouth/Throat: Head: Headache, head injury, neck pain, neck stiffness Ears: Ear discharge, hearing loss, ear pain, tinnitus Nose: Nose bleeds, sinus congestion, runny nose, postnasal drip, sneezing, sinus pressure Mouth: Dental problems, mouth sores, sore tongue, dry mouth Throat: Sore throat, trouble swallowing, voice change Eyes: Discharge, itching, pain, redness, pain, vision disturbance, blurred vision, vision loss, cataracts, glaucoma CV: Chest pain, palpitations, arrhythmias, dyspnea on exertion, othopnea, claudication, edema, coronary artery disease/history of [place] Respiratory: Cough, sputum production, hemoptysis, wheezing, shortness of breath, sleep apnea GI: Per HPI : Frequency, urgency, pain or burning with urination, flank pain, hematuria, incontinence, change in urinary stream, discharge, bleeding, pelvic pain, irregular menses Musculoskeletal: Muscle pain, joint pain, joint swelling, back pain, stiffness, weakness, limitation of motion, arthritis, trauma Integumentary/Breast: Integumentary: Rash, itching, pigmented lesions, lumps, tenderness, swelling, wound Breast: Pain, lumps, nipple discharge, skin changes Neurological: Weakness, sensory changes, syncope, seizures, headache, numbness, tingling, tremor, trauma Hematologic/Lymphatic: Hematologic: Bleeding tendency, easy bruising, history of blood clots, anticoagulation/antiplatelet therapy Lymphatic: Lymphadenopathy Endocrine: Polyuria, polydipsia, polyphagia, heat or cold intolerance, hair loss, appetite changes Allergic/Immunologic: Allergic: Allergic reactions Immunologic: Recurrent infections Psychiatric: Agitation, confusion, decreased concentration, hallucinations, anxiety, self-injury, sleep disturbance, suicidal ideation Physical Exam: BP (!) 136/99 (BP Location: Left arm, Patient Position: Sitting, BP CUFF SIZE: Adult Large) | Pulse 109 | Temp 36.4 ?C (97.5 ?F) (Temporal Artery) | Resp 18 | Ht 1.651 m (5' 5") | Wt 122.5 kg (270 lb) | SpO2 100% | BMI 44.93 kg/m? Constitutional: Awake, alert, oriented, in no acute distress Head: Normocephalic, atraumatic Eyes: Extraocular movements grossly intact, pupils equal and reactive to light and accomodation, anicteric sclerae Ears: Normal external exam Nose: Normal external exam Mouth: Moist mucous membranes, Neck: Supple, no jugular venous distention Cardiovascular: Hemodynamically normal Respiratory: Symmetry of chest wall motion, no respiratory distress GI: Soft, nontender, non-distended, no incisional scars Musculoskeletal: Normal tone and strength, normal range of motion Neurologic: CN II through XII grossly intact, no focal deficits Skin: Warm and dry, capillary refill <2 seconds, no jaundice Psychiatric: Appropriate mood and affect, no obvious deficits of insight or judgment Radiology: RUQ US: Gallstones and sludge, CBD measured 4 mm Assessment: Lanre Bales is a 28 year old female who presents with a several month history of right upper quadrant pain associated with nausea and vomiting. Work up demonstrated sludge and gallstones, no bile duct dilation, no LFT elevation. Plan: Schedule laparoscopic cholecystectomy Risks (pain, bleeding, infection, scar, injury to surrounding structures, need for further procedures), benefits, alternatives of laparoscopic cholecystectomy were discussed with the patient; all questions answered; informed consent obtained. Eva Bryan M.D. 01/07/2024 14:58 [facility]
--- NOTE | 2024-01-30 01:36 | ER ---
Nurse's Notes [facility] [place] Name: Robin Bernard Age: 28 yrs Sex: Female : 1995 Arrival Date: 01/30/2024 Time: 01:09 Bed IW5 Private MD: Diagnosis: Encounter for attention to dressings, sutures and drains-laproscopic incision site Presentation: 01/29 01:33 Chief complaint: Patient states: I have my gallbladder removed and one of my incision jb4 sites is splitting open a small amount and I just wanted it checked. Coronavirus screen: At this time, the client does not indicate any symptoms associated with coronavirus-19. Ebola Screen: No symptoms or risks identified at this time. Initial Sepsis Screen: Does the patient meet any 2 criteria? HR > 90 bpm. Yes Does the patient have a suspected source of infection? No. Patient's initial sepsis screen is negative. Risk Assessment: Do you want to hurt yourself or someone else? Patient reports no desire to harm self or others. Onset of symptoms was January 30, 2024. Transition of care: patient was not received from another setting of care. 01:33 Method Of Arrival: Ambulatory jb4 01:33 Acuity: BOZENA 4 jb4 Triage Assessment: 01:35 General: Appears in no apparent distress. comfortable, Behavior is calm, cooperative, jb4 appropriate for age. Pain: Complains of pain in umbilical area Pain does not radiate. Pain currently is 2 out of 10 on a pain scale. Quality of pain is described as stinging. Neuro: Level of Consciousness is awake, alert, obeys commands, Oriented to person, place, time, situation. Cardiovascular: Patient's skin is warm and dry. Respiratory: Airway is patent Respiratory effort is even, unlabored, Respiratory pattern is regular, symmetrical. Derm: Skin is intact, Skin is dry, Skin is normal, Skin temperature is warm. Musculoskeletal: Circulation, motion, and sensation intact. Range of motion: intact in all extremities. Historical: - Allergies: :35 Reglan; jb4 - PMHx: 01:35 gastritis; insomnia; Placenta Previa; jb4 - Immunization history:: Adult Immunizations up to date. - Infectious Disease History:: Denies. - Social history:: Smoking status: Patient denies any tobacco usage or history of. Screenin:37 [facility] ED Fall Risk Assessment (Adult) History of falling in the last 3 months, jb4 including since admission No falls in past 3 months (0 pts) Confusion or Disorientation No (0 pts) Intoxicated or Sedated No (0 pts) Impaired Gait No (0 pts) Mobility Assist Device Used No (0 pt) Altered Elimination No (0 pt) Score/Fall Risk Level 0 - 2 = Low Risk Oriented to surroundings, Maintained a safe environment. Abuse screen: Denies threats or abuse. Nutritional screening: No deficits noted. Tuberculosis screening: No symptoms or risk factors identified. Assessment: 01:37 Reassessment: see triage note. jb4 Vital Signs: 01:33 BP 146 / 98; Pulse 113; Resp 16; Temp 97.2(TE); Pulse Ox 100% on R/A; jb4 ED Course: 01:16 Patient arrived in ED. gm2 01:32 [facility]ill [facility] sb4 01:32 Gwyn Cain MD is Attending Physician. sb4 01:35 Triage completed. jb4 01:35 Arm band placed on right wrist. jb4 01:37 Patient has correct armband on for positive identification. Bed in low position. Call jb4 light in reach. Side rails up X 1. Provided Education on: plan of care. 01:37 No provider procedures requiring assistance completed. Patient did not have IV access jb4 during this emergency room visit. Administered Medications: No medications were administered Medication: 01:37 VIS not applicable for this client. jb4 Outcome: 01:36 Discharge ordered by . sb4 01:37 Discharged to home ambulatory, jb4 01:37 Condition: stable 01:37 Discharge instructions given to patient, Instructed on discharge instructions, follow up and referral plans. Demonstrated understanding of instructions, follow-up care, 01:38 Patient left the ED. jb4 Signatures: Mario Solis, RN RN jb4 Lisseth Dill PA-C PA-C sb4 Bridget Valenzuela gm2
--- NOTE | 2024-01-30 01:36 | EDPHYS ---
Physician Documentation [facility] Name: Robin Bernard Age: 28 yrs Sex: Female : 1995 Arrival Date: 01/30/2024 Time: 01:09 Bed IW5 Private MD: ED Physician Gwyn Cain HPI: 01/29 01:36 This 28 yrs old Black Female presents to ER via Ambulatory with complaints of post op sb4 gall bladder surgery 01-28/ incision has came open. 01:36 patient states that she had a routine laproscopic cholecystectomy yesterday. she sb4 noticed the glue from one of the umbilical incisions dissolved and the wound was slightly opened. she called [facility] who told her to come to the nearest ED to have it evaluated. patient does report some stinging but denies any pain, nausea, or vomiting. Historical: - Allergies: 01:35 Reglan; jb4 - PMHx: 01:35 gastritis; insomnia; Placenta Previa; jb4 - Immunization history:: Adult Immunizations up to date. - Infectious Disease History:: Denies. - Social history:: Smoking status: Patient denies any tobacco usage or history of. ROS: 01:36 Constitutional: Negative for fever, chills, and weight loss, sb4 01:36 Skin: Positive for per HPI, Exam: 01:36 Constitutional: This is a well developed, well nourished patient who is awake, alert, sb4 and in no acute distress. Head/Face: Normocephalic, atraumatic. Eyes: Extra-ocular motions intact. Periorbital areas with no swelling, redness, or edema. ENT: Mucous membranes moist. Respiratory: No increased work of breathing, no retractions or nasal flaring. 01:36 Skin: Wound recheck: laparoscopic incision site superior to umbilicus, non gaping, non erythematous, no drainage, Vital Signs: 01:33 BP 146 / 98; Pulse 113; Resp 16; Temp 97.2(TE); Pulse Ox 100% on R/A; jb4 MDM: 01:32 Medical Screening Exam initiated sb4 01:36 Data reviewed: vital signs, nurses notes, and as a result, I will discharge patient. sb4 Counseling: I had a detailed discussion with the patient and/or guardian regarding the historical points, exam findings, and any diagnostic results supporting the discharge/admit diagnosis, the need for outpatient follow up, with general surgeon, to return to the emergency department if symptoms worsen or persist or if there are any questions or concerns that arise at home. Administered Medications: No medications were administered Disposition: 05:58 Co-signature as Attending Physician, Gwyn Cain MD I agree with the assessment sp4 and plan of care. I reviewed the patient's care provided by the Advanced Practice Provider and agree with the diagnosis and treatment plan. Disposition Summary: 01/30/24 01:36 Discharge Ordered Notes: Location: Home sb4 Problem: new sb4 Symptoms: are unchanged sb4 Condition: Stable sb4 Diagnosis - Encounter for attention to dressings, sutures and drains - laproscopic incision sitesb4 Followup: sb4 - With: Private Physician - When: 2 - 3 days - Reason: Wound Recheck, Recheck today's complaints, Re-evaluation by your physician Discharge Instructions: - Discharge Summary Sheet sb4 - Nonsutured Laceration Care sb4 Forms: - Antibiotic Education sb4 - Patient Portal Instructions sb4 - Leadership Thank You Letter sb4 Signatures: Mario Solis, RN RN jb4 Lisseth Dill PALorraine PALorraine sb4 Gwyn Cain MD MD sp4
[2024-01-30 01:43] VITALS: BP 146/98; TEMP 97.2; O2SAT 100
== END 2024-01-30 01:38 | disposition home or self-care (01) ==
LOC: ER 01:09
DX: Z48.00 Encounter for change or removal of nonsurgical wound dressing (principal); Z90.49 Acquired absence of other specified parts of digestive tract
CPT/HCPCS: 99282

== ENCOUNTER 2024-02-11 00:32 | Emergency (ER) | payer OTHER ==
--- OUTSIDE RECORDS SUMMARY | 2024-02-11 00:41 | XMS REPORT | Continuity of Care Document ---
Author Name Unknown Address [address] [facility] [place] [address] [facility] Address [address] [facility] [address] [place] [address] Care Team Providers Care Investigative Analyst Name Role Phone Jess Munson MD Primary Care Physician + [phone] JESS MUNSON Attending Clinician Unavailab JESS Killian Attending Clinician Unavailab VANESSA Keene Attending Clinician Unavailable VANESSA LEYVA Attending Clinician Unavailable Eva Bryan MD Attending Clinician [phone] EVA BRYAN Attending Clinician Unavailable Jess Munson MD Attending Clinician [phone] TIANNA MEI Attending Clinician Unavailable TIANNA MEI Attending Clinician Unavailable CARO BAUER Attending Clinician Unavailable CARO BAUER Attending Clinician Unavailable Caro Bauer MD Attending Clinician +[phone] Yann Ordonez Attending Clinician +[phone] Yisel Hart MD Attending Clinician [phone] YISEL HART Attending Clinician Unavailable KONRAD ORDOÑEZ Attending Clinician Unavailab KONRAD Holguin Attending Clinician Unavailab merly Ordoñez MEDICAL AIDE, Konrad Attending Clinician +[phone] Tianna Young Attending Clinician +[phone] ISAAC SHAY Attending Clinician Unavailable Vanessa Leyva MD Attending Clinician [phone] Jose De Jesus Medina MD Attending Clinician +[phone] JOSE DE JESUS MEDINA Attending Clinician Unavailable JOSE DE JESUS MEDINA Attending Clinician Unavailable 2, [facility] Attending Clinician Unavailable KELLY SIMMS Attending Clinician UnavailKELLY Ferrera Attending Clinician Unavailelliott Simms MD, Kelly Tolentino Attending Clinician +[phone] TIFF ISABEL Attending Clinician Unavailable TIFF ISABEL Attending Clinician Unavailable Maame MEDICAL AIDE, Tiff Attending Clinician [phone], [facility] Attending Clinician Unavailable BONITA TRIVEDI Attending Clinician Unavailab Bonita Hernandez DO Attending Clinician + [phone] Carlos Ibrahim MD Attending Clinician +[phone] Doctor Unassigned, [place] Attending Clinician U NICOLE Aparicio Attending Clinician UnavailNICOLE Sellers Attending Clinician Unavaila KAMILA Barrios Attending Clinician Unavailable JACINTA VOSS Attending Clinician Unavaila susu Provider, [facility] Tem Attending Clinician Henrietta vailable Meche Richard Attending Clinician + Jacinta Voss CNM Attending Clinician [phone] MECHE ROBERSON Attending Clinician Unavail able Rodrick Carlisle Attending Clinician Unava DREW Ren Attending Clinician Unavailable RODRICK PETE Attending Clinician Unavailab Wilver Weinstein MD Attending Clinician [phone] LOVE DOWELL Attending Clinician UnavailLOVE Gonzalez Attending Clinician UnavailBRENDA Pedro Attending Clinician Unavailable Brenda Velásquez MD Attending Clinician [phone] Richard PAC, K Maame Attending Clinician [phone] Ultrasound, [facility] Attending Clinician UnavailVinh Wong MD Attending Clinician [phone] VINH MONCADA Attending Clinician Unavailable VINH MONCADA Attending Clinician Unavailable Juan BONDIvanna Attending Clinician [phone] Maddie Romeo MD Attending Clinician +[phone] MADDIE ROMEO Attending Clinician Unavailable Lab, [facility] Attending Clinician Unavailable Chema STERLING Alayna S Attending Clinician [phone] ANGUS DWYER Attending Clinician Unavailable Angus Dwyer DO Attending Clinician +[phone] Abdullahi Gomez MD Attending Clinician +[phone] Foreign Calvillo Attending Clinician + [phone] Edith Terry MD Attending Clinician +[phone] EDITH TERRY Attending Clinician Unavailable EDITH TERRY Attending Clinician Unavailable EVA BRYAN Admitting Clinician Unavailable Eva Bryan MD Admitting Clinician +[phone] YISEL HART Admitting Clinician Unavailable Yisel Hart MD Admitting Clinician +[phone] KELLY SIMMS Admitting Clinician UnavailVANESSA Garza Admitting Clinician Unavailable Vanessa Leyva MD Admitting Clinician [phone] BRENDA VELÁSQUEZ Admitting Clinician Unavailable Brenda Velásquez MD Admitting Clinician +[phone] Edith Terry MD Admitting Clinician +[phone] EDITH TERRY Admitting Clinician Unavailable Payers Payer Name Policy Type Policy Number Effective Date Expirati on Date Source [employer] [employer] [id number] 2021 00:00:00 Problems Condition Name Condition Details Condition Category Status Onset Date Resolution Date Last Treatment Date Treating Clinician Comments Source Dre r sludge Dre r sludge Disease Active 2023-02 00:00: 00 [facility] Hematemesi s with nausea Hematemesi s with nausea Disease Active 2023-02 0 00:00: 00 [facility] Coffee ground emesis Coffee ground emesis Disease Active 2023-02 0-03 00:00: 00 [facility] Abdominal pain, epigastric Abdominal pain, epigastric Disease Active 2023-02 0-03 00:00: 00 [facility] Papanicola ou smear of cervix with low grade squamous intraepith elial lesion (LGSIL) Papanicola ou smear of cervix with low grade squamous intraepith elial lesion (LGSIL) Disease Active 518 00:00: 00 Overview: Formattin g of this note might be different from the original. LGSIL in 2021 needs repeat pap smear in 2022. 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 Disease Active 4-12 00:00: 00 [facility] Tetrahydro cannabinol (THC) use disorder, mild, abuse Tetrahydro cannabinol (THC) use disorder, mild, abuse Disease Resolve d 5-10 00:00: 00 2022-12-25 00:00:00 2022-12-25 13:59:24 [facility] Chronic hypertensi on with superimpos ed preeclamps ia Chronic hypertensi on with superimpos ed preeclamps ia Disease Resolve d 2021-02 0-08 00:00: 00 2022-01-20 00:00:00 2022-01-20 14:17:40 [facility] Supervisio n of high risk , antepartum Supervisio n of high risk , antepartum Disease Resolve d 5-05 00:00: 00 2022-01-20 00:00:00 2022-01-20 14:17:35 [facility] GBS (group B Streptococ cus carrier), +RV culture, 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 Will need ABX in labor. [facility] Single liveborn, born in hospital, delivered by vaginal delivery Single liveborn, born in hospital, delivered by vaginal delivery Disease Resolve d 2021-02 0-09 00:00: 00 2021-12-22 00:00:00 2021-12-22 07:58:27 [facility] Morbid obesity with body mass index of 40.0-49.9 Morbid obesity with body mass index of 40.0-49.9 Disease Resolve d 2021-02 0-08 00:00: 00 2021-12-22 00:00:00 2021-12-22 15:59:51 [facility] Severe pre-eclamp shena in third trimester Severe pre-eclamp shena in third trimester Disease Resolve d 2021-02 0-08 00:00: 00 2021-12-22 00:00:00 2021-12-22 07:58:22 [facility] Elevated blood pressure reading without diagnosis of hypertensi on Elevated blood pressure reading without diagnosis of hypertensi on Disease Resolve d 9-08 00:00: 00 2021-12-22 00:00:00 2021-12-22 07:58:07 [facility] Proteinuri a affecting in third trimester Proteinuri a affecting in third trimester Disease Resolve d 9-08 00:00: 00 2021-12-22 00:00:00 2021-12-22 07:58:17 [facility] Intractabl e nausea and vomiting Intractabl e nausea and vomiting Disease Resolve d 0 7-05 00:00: 00 2021-12-22 00:00:00 2021-12-22 07:58:09 [facility] Urinary tract infection without hematuria, site unspecifie d Urinary tract infection without hematuria, site unspecifie d Disease Resolve d 2021-0 6-02 00:00: 00 2021-12-22 00:00:00 2021-12-22 07:57:57 [facility] Nausea and vomiting during Nausea and vomiting during Disease Resolve d 2021-0 5-10 00:00: 00 2021-12-22 00:00:00 2021-12-22 07:58:11 [facility] Nausea and vomiting during Nausea and vomiting during Disease Resolve d 2021-0 5-10 00:00: 00 2021-12-22 00:00:00 2021-12-22 07:58:11 [facility] Primigravi da in second trimester Primigravi da in second trimester Disease Resolve d 2021-0 5-05 00:00: 00 2021-12-22 00:00:00 2021-12-22 07:58:15 [facility] Obesity in Obesity in Disease Resolve d 2021-0 5-05 00:00: 00 2021-12-22 00:00:00 2021-12-22 07:58:13 [facility] Chronic hypertensi on affecting Chronic hypertensi on affecting Disease Resolve d 2021-0 4-24 00:00: 00 2021-12-22 00:00:00 2021-12-22 07:58:04 [facility] BMI 40.0-44.9, adult BMI 40.0-44.9, adult Disease Resolve d 2021-0 4-23 00:00: 00 2021-12-22 00:00:00 2021-12-22 15:59:13 [facility] 15 weeks gestation of 15 weeks gestation of Disease Resolve d 2021-0 4-12 00:00: 00 2021-12-22 00:00:00 2021-12-22 07:58:01 [facility] Hyperemesi s Hyperemesi s Disease Resolve d 2021-0 5-10 00:00: 00 2021-11-26 00:00:00 2021-11-26 09:09:11 [facility] Hyperbilir ubinemia Hyperbilir ubinemia Disease Resolve d 0 4-25 00:00: 00 2021-11-26 00:00:00 2021-11-26 09:09:06 [facility] Hypomagnes emia Hypomagnes emia Disease Resolve d 2021- 4-25 00:00: 00 2021-11-26 00:00:00 2021-11-26 09:09:05 [facility] Hypocalcem ia Hypocalcem ia Disease Resolve d 4-25 00:00: 00 2021-11-26 00:00:00 2021-11-26 09:09:03 [facility] Hypokalemi a Hypokalemi a Disease Resolve d 4-12 00:00: 00 2021-11-26 00:00:00 2021-11-26 09:09:30 [facility] Hyponatrem ia Hyponatrem ia Disease Resolve d 4-12 00:00: 00 2021-11-26 00:00:00 2021-11-26 09:09:33 [facility] Tachycardi a Tachycardi a Disease Resolve d 4-12 00:00: 00 2021-11-26 00:00:00 2021-11-26 09:09:30 [facility] Nausea and vomiting in prior to 22 weeks gestation Nausea and vomiting in prior to 22 weeks gestation Disease Resolve d 4-12 00:00: 00 2021-11-26 00:00:00 2021-11-26 09:09:43 [facility] Nausea and vomiting in prior to 22 weeks gestation Nausea and vomiting in prior to 22 weeks gestation Disease Resolve d 4-12 00:00: 00 2021-11-26 00:00:00 2021-11-26 09:09:43 [facility] Allergies, Adverse Reactions, Alerts Allergy Name Allergy Type Status Severity Reaction(s) Onset Date Inactive Date Treating Clinician Comments Source Egg Propensi ty to adverse reaction s Active Nausea and/or Vomiting 06-29 00:00: 00 [facility] EGG DRUG INGREDI Active N/V 5- 00:00: 00 [facility] Metoclop ramide Drug Allergy Active Extra pyramidal effects 05-31 00:00: 00 [facility] METOCLOP RAMIDE DRUG INGREDI Active Med EP Effects 4- 00:00: 00 [facility] Social History Social Habit Start Date Stop Date Quantity Comments Source ASSERTION 2021-03-26 00:00:00 [facility] Sexual orientation [facility] History of tobacco use Current smoker [facility] Alcoholic beverage intake 2024-01-30 00:00:00 2024-01-30 00:00:00 Current drinker of alcohol (finding) [facility] Alcohol Comment 2023-11-26 00:00:00 2023-11-26 00:00:00 ocassional [facility] Tobacco use and exposure 2023-11-26 00:00:00 2023-11-26 00:00:00 Smokeless tobacco non-user [facility] History of Social function 2023-11-22 00:00:00 2023-11-22 00:00:00 [facility] Alcohol intake 2023-06-21 00:00:00 2023-06-21 00:00:00 Ex-drinker (finding) [facility] Exposure to SARS-CoV-2 (event) 2022-01-10 00:00:00 2022-01-20 14:04:00 Not sure [facility] Tobacco Comment 2021-09-15 00:00:00 2021-09-15 00:00:00 marijuana,no nicotine stopped for [facility] Sex assigned at 1995 00:00:00 1995 00:00:00 [facility] Smoking Status Start Date Stop Date Source Ex-smoker 2023-11-26 00:00:00 2023-11-26 00:00:00 [facility] Medications Ordered Medication Name Filled Medication Name Start Date Stop Date Current Medication? Ordering Clinician Indication Dosage Frequency Signature (SIG) Comments Components Source HYDROcodone -acetaminop hen (NORCO 5) tablet 1 tablet 2023-02 18:30: 00 01-28 19:00 :00 No 1{tbl} 1 tablet, Oral, ONCE, 1 dose, On Sun01/29/24 at 1230, Routine, PACU [facility] lactated ringers IV infusion 1,000 mL 2023-02 18:30: 00 01-28 22:20 :16 No 1000mL at 50 mL/hr, 1,000 mL, IV Infusion, CONTINUOUS , Starting on Sun01/29/24 at 1230, Until Sun01/29/24 at 1620, Routine, PACU [facility] HYDROmorphO ne (DILAUDID) injection 0.2 mg 2023-02 18:19: 17 01-28 22:20 :16 No .2mg 0.2 mg, Slow IV Push, Q5MIN PRN, 10 doses, Starting on Sun01/29/24 at 1219, Until Sun01/29/24 at 1620, Routine, Pain (scale 7-10), PACU, Is this medication approved by a Faculty level provider? Yes, service member approving Restricted medication : RADHA EVANS [facility] FENTanyl (PF) (SUBLIMAZE) injection 25 mcg 2023-02 18:19: 17 01-28 22:20 :16 No 25ug 25 mcg, Slow IV Push, Q5MIN PRN, 4 doses, Starting on Sun01/29/24 at 1219, Until Sun01/29/24 at 1620, Routine, Pain Scale 4-6, PACU [facility] ondansetron (ZOFRAN (PF)) injection 4 mg 2023-02 18:19: 17 01-28 22:20 :16 No 4mg 4 mg, Slow IV Push, PRN, 1 dose, Starting on Sun01/29/24 at 1219, Until Sun01/29/24 at 1620, Administer over 2-5 Minutes, 2 mL, PACU [facility] bupivacaine -epinephrin e-pf (SENSORCAIN E W/EPINEPHRI NE) 0.25 %-1:200,000 30 mL, lidocaine 1% (PF) (XYLOCAINE) 30 mL 2023-02 16:57: 00 01-28 18:29 :17 No PRN, Starting on Sun01/29/24 at 1057, Intra-op [facility] sodium chloride 0.9 % irrigation solution 2023-02 16:56: 00 01-28 18:29 :17 No PRN, Starting on Sun01/29/24 at 1056, Until Sun01/29/24 at 1229, Intra-op [facility] acetaminoph en (TYLENOL) 325 mg tablet 2023-02 00:00: 00 02-05 05:59 :00 Yes [id number] 650mg Take 2 tablets by mouth every 6 (six) hours for 7 days. [facility] ibuprofen 800 mg tablet 2023-02 00:00: 00 02-05 05:59 :00 Yes [id number] 800mg Take 1 tablet by mouth every 6 (six) hours for 7 days. [facility] traMADoL 50 mg tablet 2023-02 00:00: 00 02-05 05:59 :00 Yes [id number] 50mg Take 1 tablet by mouth every 8 (eight) hours for 7 days. Indication s: acute pain, chronic pain [facility] HYDROcodone -acetaminop hen 5-325 mg tablet 2023-02 00:00: 00 02-05 05:59 :00 Yes [id number] 1{tbl} Take 1 tablet by mouth every 6 (six) hours as needed for Pain (scale 7-10) for up to 7 days. Indication s: acute pain [facility] phentermine 37.5 mg tablet 2023-02 00:00: 00 Yes [id number] 104 37.5mg Take 1 tablet by mouth daily with breakfast. [facility] zolpidem 5 mg tablet 2023-02 00:00: 00 Yes [id number] 5mg Take 1 tablet by mouth at bedtime as needed for Insomnia. [facility] ondansetron 8 mg tablet 2023-02 00:00: 00 Yes [id number] 8mg Take 1 tablet by mouth every 8 (eight) hours as needed for Nausea and Vomiting (N/V). [facility] ketorolac (TORADOL) injection 30 mg 2023-02 11:30: 00 01-11 10:39 :00 No 30mg 30 mg, Slow IV Push, ONCE, 1 dose, On 01/12/24 at 0530, Routine [facility] fentanyl PF (SUBLIMAZE (PF)) injection 50 mcg 2023-02 11:15: 00 01-11 11:15 :00 No 50ug 50 mcg, Slow IV Push, ONCE, 1 dose, On 01/12/24 at 0515, Routine [facility] ondansetron (ZOFRAN (PF)) injection 4 mg 2023-02 10:30: 00 01-11 10:29 :00 No 4mg 4 mg, Slow IV Push, ONCE, 1 dose, On 01/12/24 at 0430, Administer over 2-5 Minutes, 2 mL [facility] fentanyl PF (SUBLIMAZE (PF)) injection 50 mcg 2023-02 10:30: 00 01-11 10:40 :00 No 50ug 50 mcg, Slow IV Push, ONCE, 1 dose, On 01/12/24 at 0430, RACHAEL [facility] ondansetron (ZOFRAN (PF)) injection 4 mg 2023-02 10:15: 00 01-11 10:07 :00 No 4mg 4 mg, Slow IV Push, ONCE, 1 dose, On 01/12/24 at 0415, Administer over 2-5 Minutes, 2 mL [facility] traMADoL (ULTRAM) 50 mg tablet 2023-02 00:00: 00 Yes [id number] 50mg Take 1 tablet by mouth every 6 (six) hours as needed for Pain (scale 7-10). Indication s: acute pain [facility] dicyclomine 20 mg tablet 2023-02 00:00: 00 Yes [id number] 20mg Take 1 tablet by mouth every 6 (six) hours as needed for Abdominal pain. [facility] ondansetron (ZOFRAN) 4 mg tablet 2023-02 00:00: 00 01-27 00:00 :00 No [id number] 4mg Take 1 tablet by mouth every 8 (eight) hours as needed for Nausea and Vomiting (N/V). [facility] ondansetron 8 mg tablet 2023-02 00:00: 00 01-24 00:00 :00 No [id number] 8mg Take 1 tablet by mouth every 8 (eight) hours as needed for Nausea and Vomiting (N/V). [facility] ondansetron 4 mg disintegrat ing tablet 2023-02 00:00: 00 01-10 00:00 :00 No [id number] 4mg Take 1 tablet by mouth every 8 (eight) hours as needed for Nausea and Vomiting (N/V). [facility] phentermine 37.5 mg tablet 2023-02 00:00: 00 01-24 00:00 :00 No [id number] 104 37.5mg Take 1 tablet by mouth daily with breakfast. [facility] zolpidem 5 mg tablet 2023-02 00:00: 00 01-24 00:00 :00 No [id number] 5mg Take 1 tablet by mouth at bedtime as needed for Insomnia. [facility] ondansetron 4 mg disintegrat ing tablet 2023-02 00:00: 00 01-09 00:00 :00 No [id number] 4mg Take 1 tablet by mouth every 8 (eight) hours as needed for Nausea and Vomiting (N/V). [facility] ondansetron 4 mg tablet 2023-02 00:00: 00 01-10 00:00 :00 No [id number] 4mg Take 1 tablet by mouth every 8 (eight) hours as needed for Nausea and Vomiting (N/V). [facility] TRAZODONE 100 mg tablet 2023-02 0 00:00: 00 Yes [id number] 100mg TAKE 1 TABLET BY MOUTH EVERYDAY AT BEDTIME [facility] pantoprazol e 40 mg EC tablet 11-18 00:00: 00 Yes [id number] 40mg Take 1 tablet by mouth in the morning. [facility] phentermine 37.5 mg tablet 11-18 00:00: 00 12-24 00:00 :00 No [id number] 104 37.5mg Take 1 tablet by mouth daily with breakfast. [facility] zolpidem 5 mg tablet 11-18 00:00: 00 12-24 00:00 :00 No [id number] 5mg Take 1 tablet by mouth at bedtime as needed for Insomnia. [facility] proMETHazin e (PHENERGAN) 12.5 mg in NS 50 mL IV piggyback (CNR) 11-17 15:30: 00 11-17 15:49 :00 No 12.5mg 12.5 mg, IV Piggyback, at 200 mL/hr Administer over 15 Minutes, ONCE, 1 dose, [facility]30[facility] injection 4 mg 11-17 15:30: 00 11-17 15:34 :00 No 4mg 4 mg, Slow IV Push, ONCE, 1 dose, On Sun11/18/23 at 1030, STAT [facility] ketorolac (TORADOL) injection 30 mg 11-17 15:00: 00 11-17 14:09 :00 No 30mg 30 mg, Slow IV Push, ONCE, 1 dose, [facility] Sun11/18/23 at 1000[facility] famot[facility] (PEPCID (PF)) injection 20 mg 11-17 14:15: 00 11-17 14:09 :00 No 20mg 20 mg, Slow IV Push, ONCE, 1 dose, On 11/18/23 at 0915, [facility] iopamidol (ISOVUE 370-500 mL) injection 100 mL 11-17 13:30: 00 11-17 13:45 :00 No [id number] 100mL 100 mL, Intravenou s, ONCE, 1 dose, On Sun11/18/23 at 0845, Routine [facility] NaCl 0.9% (NS) IV infusion 1,000 mL 11-17 13:00: 00 11-17 15:15 :00 No 1000mL at 999 mL/hr, Intravenou s, ONCE, 1 dose, On Sun11/18/23 at 0800, RACHAEL [facility] proMETHazin e (PHENERGAN) 12.5 mg in NS 50 mL IV piggyback (CNR) 11-17 12:30: 00 11-17 13:33 :00 No 12.5mg 12.5 mg, IV Piggyback, at 200 mL/hr Administer over 15 Minutes, ONCE, 1 dose, On Sun11/18/23 at 0730, RACHAEL [facility] fentanyl PF (SUBLIMAZE (PF)) injection 100 mcg 11-17 11:15: 00 11-17 11:16 :00 No 100ug 100 mcg, Slow IV Push, ONCE, 1 dose, On Sun11/18/23 at 0615, Routine [facility] ondansetron (ZOFRAN (PF)) injection 8 mg 11-17 11:00: 00 11-17 11:10 :00 No 8mg 8 mg, Slow IV Push, ONCE, 1 dose, On Sun11/18/23 at 0600, RACHAEL [facility] sodium chloride (NS) injection 5 mL 11-17 10:51: 45 Yes 5mL 5 mL, Intravenou s, PRN, Starting on Sun11/18/23 at 0551, Until Discontinu ed, Routine, IV line flushing [facility] proMETHazin e 25 mg tablet 11-17 00:00: 00 Yes [id number] 25mg Take 1 tablet by mouth every 6 (six) hours as needed for Nausea and Vomiting (N/V). [facility] traMADoL 50 mg tablet 11-17 00:00: 00 01-28 00:00 :00 No [id number] 50mg Take 1 tablet by mouth every 6 (six) hours as needed (pain). Indication s: acute pain [facility] zolpidem 5 mg tablet 11-17 00:00: 00 11-17 00:00 :00 No [id number] 5mg Take 1 tablet by mouth at bedtime as needed for Insomnia. [facility] KCL (KLOR-CON M20) tablet 20 mEq 11-07 19:30: 00 11-07 19:56 :00 No 20meq 20 mEq, Oral, ONCE, 1 dose, On Gabby 11/08/23 at 1430, [facility] proMETHazin e (PHENERGAN) 12.5 mg in NS 50 mL IV piggyback (CNR) 11-07 17:45: 00 11-07 18:53 :00 No 12.5mg 12.5 mg, IV Piggyback, at 200 mL/hr Administer over 15 Minutes, ONCE, 1 dose, On Gabby 11/08/23 at 1245, [facility] ondansetron (ZOFRAN (PF)) injection 4 mg 11-07 16:30: 00 11-07 16:38 :00 No 4mg 4 mg, Slow IV Push, ONCE, 1 dose, On Gabby 11/08/23 at 1130, [facility] famotidine (PEPCID (PF)) injection 20 mg 11-07 16:30: 00 11-07 16:38 :00 No 20mg 20 mg, Slow IV Push, ONCE, 1 dose, On Gabby 11/08/23 at 1130, [facility] NaCl 0.9% (NS) bolus infusion 1,000 mL 11-07 16:30: 00 11-07 19:53 :00 No 1000mL at 999 mL/hr, 1,000 mL, IV Infusion, ONCE, 1 dose, On Gabby 11/08/23 at 1130, RACHAEL [facility] morpHINE (4 mg/mL) injection 4 mg 11-07 15:45: 00 11-07 18:39 :00 No 4mg 4 mg, Slow IV Push, ONCE, 1 dose, On Gabby 11/08/23 at 1045, RACHAEL [facility] ondansetron 4 mg disintegrat ing tablet 11-07 00:00: 00 11-12 04:59 :00 No [id number] 4mg Take 1 tablet by mouth every 8 (eight) hours as needed for Nausea and Vomiting (N/V) for up to 4 days. [facility] zolpidem 5 mg tablet 10-18 00:00: 00 11-15 00:00 :00 No [id number] 5mg Take 1 tablet by mouth at bedtime as needed for Insomnia. [facility] ergocalcife rol, vitamin d2, (VITAMIN D2) 1,250 mcg (50,000 unit) capsule 10-15 00:00: 00 Yes [id number] 42528V Take 1 capsule by mouth weekly. [facility] phentermine 37.5 mg tablet 10-15 00:00: 00 11-18 00:00 :00 No [id number] 37.5mg Take 1 tablet by mouth daily with breakfast. [facility] ergocalcife rol, vitamin d2, (VITAMIN D2) 1,250 mcg (50,000 unit) capsule 10-02 00:00: 00 10-14 00:00 :00 No [id number] 21896F Take 1 capsule by mouth weekly. [facility] zolpidem 5 mg tablet 09-12 00:00: 00 10-15 00:00 :00 No [id number] 5mg Take 1 tablet by mouth at bedtime as needed for Insomnia. [facility] phentermine 37.5 mg tablet 09-12 00:00: 10-14 00:00 :00 No [id number] 37.5mg Take 1 tablet by mouth daily with breakfast. [facility] phentermine 37.5 mg tablet 2023-0 6-17 00:00: 00 09-11 00:00 :00 No [id number] 37.5mg Take 1 tablet by mouth daily with breakfast. [facility] zolpidem 5 mg tablet 2023-0 6-17 00:00: 00 09-11 00:00 :00 No [id number] 5mg Take 1 tablet by mouth at bedtime as needed for Insomnia. [facility] traZODone 100 mg tablet 2023-0 6-05 00:00: 00 12-09 00:00 :00 No [id number] 100mg Take 1 tablet by mouth at bedtime. [facility] acetaminoph en (TYLENOL) tablet 650 mg 5-02 17:30: 00 06-20 17:25 :00 No 650mg 650 mg, Oral, ONCE, 1 dose, On Sun06/21/23 at 1230, RACHAEL [facility] sulfamethox azole-trime thoprim 800-160 mg per tablet 5-02 00:00: 00 08-05 00:00 :00 No [id number] 1{tbl} Take 1 tablet by mouth every 12 (twelve) hours. [facility] phentermine 37.5 mg tablet 0 4-09 00:00: 00 08-05 00:00 :00 No [id number] 37.5mg Take 1 tablet by mouth daily with breakfast. [facility] traZODone 100 mg tablet 2023-0 3-04 00:00: 00 07-24 00:00 :00 No [id number] 100mg Take 1 tablet by mouth at bedtime. [facility] phentermine 37.5 mg tablet 2023-0 2-22 00:00: 00 05-28 00:00 :00 No [id number] 37.5mg Take 1 tablet by mouth daily with breakfast. [facility] zolpidem 5 mg tablet 2023-0 2-15 00:00: 00 08-05 00:00 :00 No [id number] 5mg Take 1 tablet by mouth at bedtime as needed for Insomnia. [facility] phentermine 37.5 mg tablet 03-02 00:00: 00 04-11 00:00 :00 No [id number] 37.5mg Take 1 tablet by mouth daily with breakfast. [facility] zolpidem 5 mg tablet 02-20 00:00: 00 04-05 00:00 :00 No [id number] 5mg Take 1 tablet by mouth at bedtime as needed for Insomnia. [facility] phentermine 37.5 mg tablet 2022-02 00:00: 00 03-02 00:00 :00 No [id number] 37.5mg Take 1 tablet by mouth daily with breakfast. [facility] traZODone 100 mg tablet 2022-02 00:00: 00 04-22 00:00 :00 No [id number] 100mg Take 1 tablet by mouth at bedtime. [facility] phentermine 37.5 mg tablet 2022-02 00:00: 00 01-26 00:00 :00 No [id number] 37.5mg Take 1 tablet by mouth daily with breakfast. [facility] zolpidem 5 mg tablet 2022-02 00:00: 00 02-19 00:00 :00 No [id number] 5mg Take 1 tablet by mouth at bedtime as needed for Insomnia. [facility] TRAZODONE 50 mg tablet 2022-02 00:00: 00 01-24 00:00 :00 No [id number] 50mg TAKE 1 TABLET BY MOUTH EVERYDAY AT BEDTIME [facility] ramelteon 8 mg tablet 2022-02 00:00: 00 01-24 00:00 :00 No [id number] 8mg Take 1 tablet by mouth at bedtime. [facility] Doxepin 6 mg Tab 2022-02 00:00: 00 01-04 00:00 :00 No [id number] 6mg Take 6 mg by mouth at bedtime. [facility] ergocalcife rol, vitamin d2, (VITAMIN D2) 1,250 mcg (50,000 unit) capsule 2022-02 00:00: 00 09-30 00:00 :00 No [id number] Take 1 capsule by mouth weekly. [facility] traZODone 50 mg tablet 2022-02 00:00: 00 01-16 00:00 :00 No [id number] 50mg Take 1 tablet by mouth at bedtime. [facility] medroxyPROG ESTERone (DEPO-PROVE RA) syringe 150 mg 2021-02 21:15: 00 01-20 20:41 :00 No [id number] 150mg [facility] NIFEdipine ER 30 mg tablet 2021-02 00:00: 00 01-20 00:00 :00 No [id number] 30mg Take 1 tablet by mouth in the morning. [facility] NIFEdipine ER tablet 30 mg 2021-02- 04:00: 00 Yes 30mg 30 mg, Oral, DAILY, First dose on 11/27/21 at 2300, Until Discontinu ed, Routine [facility] vitamin w/FA tablet 2021-02 00:00: 00 01-20 00:00 :00 No [id number] 1{tbl} Take 1 tablet by mouth in the morning. [facility] docusate 100 mg capsule 2021-02 0- 00:00: 00 01-20 00:00 :00 No [id number] 200mg Take 2 capsules by mouth once daily as needed for Constipati on. [facility] ferrous sulfate 325 mg (65 mg iron) tablet 2021-02 0 00:00: 00 01-20 00:00 :00 No [id number] 325mg Take 1 tablet by mouth in the morning and 1 tablet in the evening. [facility] ibuprofen 600 mg tablet 2021-02 0- 00:00: 00 01-20 00:00 :00 No [id number] 600mg Take 1 tablet by mouth every 6 (six) hours as needed (Pain). Take with food or milk. [facility] D5W 0.45% NaCl (1/2NS) IV infusion 1,000 mL 2021-02 19:38: 00 Yes 1000mL at 50 mL/hr, 1,000 mL, IV Infusion, CONTINUOUS , Starting on 11/27/21 at 1445, Until Discontinu ed, Routine [facility] HYDROcodone -acetaminop hen (NORCO 5) 5-325 mg tablet 1 tablet 2021-02 12:41: 25 Yes 1{tbl} 1 tablet, Oral, Q6HPRN, Starting on 11/27/21 at 0741, Until Discontinu ed, Routine, Pain (scale 7-10) [facility] ibuprofen (IBU) tablet 600 mg 2021-02 12:41: 25 Yes 600mg 600 mg, Oral, Q6HPRN, Starting on 11/27/21 at 0741, Until Discontinu ed, Routine, Pain (scale 4-6) [facility] acetaminoph en (TYLENOL) tablet 650 mg 2021-02 12:41: 25 Yes 650mg 650 mg, Oral, Q6HPRN, Starting on 11/27/21 at 0741, Until Discontinu ed, Routine, Pain (scale 1-3) [facility] diphenhydrA MINE (BENADRYL) tablet 25 mg 2021-02 12:41: 25 Yes 25mg 25 mg, Oral, Q6HPRN, Starting on 11/27/21 at 0741, Until Discontinu ed, Routine, Sleep, Itching [facility] ondansetron (ZOFRAN (PF)) injection 4 mg 2021-02 12:41: 25 Yes 4mg 4 mg, Slow IV Push, Q8HPRN, Starting on 11/27/21 at 0741, Until Discontinu ed, Routine, Nausea and Vomiting (N/V) [facility] simethicone (GAS RELIEF (SIMETHICON E)) chewable tablet 160 mg 2021-02 12:41: 25 Yes 160mg 160 mg, Oral, PC+HSPRN, Starting on 11/27/21 at 0741, Until Discontinu ed, Routine, Gas [facility] docusate (COLACE) capsule 200 mg 2021-02 12:41: 25 Yes 200mg 200 mg, Oral, QDAILYPRN, Starting on 11/27/21 at 0741, Until Discontinu ed, Routine, Constipati on [facility] magnesium hydroxide (MILK OF MAGNESIA) 400 mg/5 mL suspension 30 mL 2021-02 12:41: 25 Yes 30mL 30 mL, Oral, QDAILYPRN, Starting on 11/27/21 at 0741, Until Discontinu ed, Routine, Constipati on [facility] benzocaine- menthol (DERMOPLAST ) 20-0.5 % topical spray 2021-02 12:41: 25 Yes Topical, PRN, Starting on 11/27/21 at 0741, Until Discontinu ed, Routine, Perineum discomfort [facility] calcium gluconate 100 mg/mL (10%) injection 1,000 mg 2021-02 12:40: 21 Yes 1000mg 1,000 mg, Slow IV Push, PRN - SEE INSTRUCTIO NS, Starting on 11/27/21 at 0740, Until Discontinu ed, Routine, magnesium toxicity [facility] magnesium sulfate 4 mEq/mL (50 %) injection 32.48 mEq 2021-02 12:40: 21 Yes 4g 32.48 mEq (4 g), Slow IV Push, PRN - SEE INSTRUCTIO NS, Starting on 11/27/21 at 0740, Until Discontinu ed, Routine, For seizure activity (patient not on magnesium sulfate) [facility] magnesium sulfate 4 mEq/mL (50 %) injection 16.24 mEq 2021-02 12:40: 21 Yes 2g 16.24 mEq (2 g), Slow IV Push, PRN - SEE INSTRUCTIO NS, 2 doses, Starting on 11/27/21 at 0740, Until Discontinu ed, Routine, For seizure activity (patient already on magnesium sulfate) [facility] labetaloL (NORMODYNE) injection 20 mg 2021-02 [...] Hypertensi ve Emergency in [Order 4 End] [facility] oxytocin (PITOCIN) 30 units in NS 500 mL IV infusion 2021-02 02:10: 24 11-27 12:40 :54 No 2mU/min at 2-40 mL/hr, IV Infusion, TITRATE, Starting on 11/26/21 at 2110, Until 11/27/21 at 0740, Routine [facility] penicillin g pot in dextrose 3 million unit/50 mL RTU iv piggyback 3 Million Units 2021-02 0-08 22:15: 00 11-27 12:40 :54 No 310 3 Million Units, IV Piggyback, Q4H ABX, First dose on 11/26/21 at 1715, Until Discontinu ed, Administer over 60 Minutes, 50 mL
Reas on for Anti-Infec tive: Empiric Non-Surgic al Prophylaxi s
Durat ion of therapy: 72 hours [facility] fentaNYL-ro pivacaine 2 mcg/mL-0.1 % (PF) in NS 200 mL epidural infusion RTU 2021-02 0 20:46: 00 11-27 13:52 :31 No Epidural, ONCE INTRA PROCEDURE, Starting on 11/26/21 at 1546, Until 11/27/21 at 0852, Routine, Intra-op [facility] lidocaine-e pinephrine (XYLOCAINE W/EPINEPHRI NE) 1.5 %-1:200,000 injection 2021-02 0 20:43: 00 Yes Epidural, ONCE INTRA PROCEDURE, Starting on 11/26/21 at 1543, Until Discontinu ed, Routine, Intra-op [facility] penicillin g potassium 5 Million Units in NaCl 0.9% (NS) 100 mL MINI-BAG 2021-02 008 18:15: 00 11-26 19:13 :00 No 510 5 Million Units, IV Piggyback, ONCE, 1 dose, On 11/26/21 at 1315, Administer over 60 Minutes, 100 mL
Reas on for Anti-Infec tive: Empiric Non-Surgic al Prophylaxi s
Durat ion of therapy: 72 hours [facility] NaCl 0.9% (NS) IV infusion 1,000 mL 2021-02 008 18:00: 00 11-27 12:40 :54 No 1000mL at 50 mL/hr, IV Infusion, CONTINUOUS , Starting on 11/26/21 at 1300, Until 11/27/21 at 0740, Routine [facility] oxytocin (PITOCIN) 30 units in NS 500 mL IV infusion 2021-02 14:31: 25 11-27 02:11 :24 No 2mU/min at 2-40 mL/hr, IV Infusion, TITRATE, Starting on 11/26/21 at 0931, Until 11/26/21 at 2111, Routine [facility] FENTanyl PF (SUBLIMAZE (PF)) injection 100 mcg 2021-02 13:50: 58 11-27 12:40 :54 No 100ug 100 mcg, Slow IV Push, Q1HPRN, Starting on 11/26/21 at 0850, Until 11/27/21 at 0740, Routine, Pain (scale 4-6), Pain (scale 7-10) [facility] (CYTOTEC) quarter-tab let 25 mcg 2021-02 13:45: 00 11-26 13:22 :00 No 25ug 25 mcg, Vaginal, ONCE, 1 dose, On 11/26/21 at 0845, Routine [facility] butalbital- acetaminoph en-caff (ESGIC) 50-325-40 mg tablet 1 tablet 2021-02 09:45: 00 11-26 08:57 :00 No 1{tbl} 1 tablet, Oral, ONCE NOW, 1 dose, On 11/26/21 at 0445, Routine [facility] sulfate in water for injection 20 gram/500 mL (4 %) IV infusion 2021-02 09:00: 00 Yes 2g/h 2 g/hr (50 mL/hr), IV Infusion, CONTINUOUS , Starting on 11/26/21 at 0400, Until Discontinu ed, Routine [facility] D5W 0.45% NaCl (1/2NS) IV infusion 1,000 mL 2021-02 09:00: 00 11-27 12:40 :54 No 1000mL at 75 mL/hr, 1,000 mL, IV Infusion, CONTINUOUS , Starting on 11/26/21 at 0400, Until 11/27/21 at 0740, Routine [facility] promethazin e 6.25 mg/5 mL solution 0 9-21 00:00: 00 11-28 00:00 :00 No [id number] 12.5mg Take 10 mL by mouth every 4 (four) hours as needed for Nausea and Vomiting (N/V). [facility] promethazin e 6.25 mg/5 mL solution 8-30 00:00: 00 11-09 00:00 :00 No [id number] 12.5mg Take 10 mL by mouth every 4 (four) hours as needed for Nausea and Vomiting (N/V). [facility] promethazin e 6.25 mg/5 mL solution 8-11 00:00: 00 10-18 00:00 :00 No [id number] 12.5mg Take 10 mL by mouth every 4 (four) hours as needed for Nausea and Vomiting (N/V). [facility] promethazin e 6.25 mg/5 mL solution 6-23 00:00: 00 09-15 00:00 :00 No [id number] 12.5mg Take 10 mL by mouth every 4 (four) hours as needed for Nausea and Vomiting (N/V). [facility] proMETHazin e 25 mg tablet 07-17 00:00: 00 09-15 00:00 :00 No [id number] 25mg Take 1 tablet by mouth every 6 (six) hours as needed for Nausea and Vomiting (N/V). [facility] promethazin e 6.25 mg/5 mL solution 5-06 00:00: 00 06-29 00:00 :00 No [id number] 12.5mg Take 10 mL by mouth every 4 (four) hours as needed for Nausea and Vomiting (N/V). [facility] vit 33-iron-fol ic-dha (SELECT-OB + DHA) 29 mg iron-1 mg -250 mg combo pack 5-05 00:00: 00 07-17 00:00 :00 No [id number] 1{packe t} Take 1 Packet by mouth daily. [facility] proMETHazin e 25 mg suppository 5-04 00:00: 00 09-15 00:00 :00 No [id number] 25mg Insert 1 Suppositor y into rectum every 4 (four) hours as needed for Nausea and Vomiting (N/V). [facility] Immunizations Ordered Immunization Name Filled Immunization Name Date Status Comments Source HPV9 2022-12-25 00:00:00 Completed [facility] 2022-12-25 00:00:00 Completed [facility] 2022-12-25 00:00:00 Completed [facility] 2022-12-25 00:00:00 Completed [facility] 2022-12-25 00:00:00 Completed [facility] 2022-12-25 00:00:00 Completed [facility] 2022-12-25 00:00:00 Completed [facility] TDAP 2021-09-29 00:00:00 Completed [facility] TDAP 2021-09-29 00:00:00 Completed [facility] TDAP 2021-09-29 00:00:00 Completed [facility] TDAP 2021-09-29 00:00:00 Completed [facility] TDAP 2021-09-29 00:00:00 Completed [facility] TDAP 2021-09-29 00:00:00 Completed [facility] TDAP 2021-09-29 00:00:00 Completed [facility] TDAP 2021-09-29 00:00:00 Completed [facility] TDAP 2021-09-29 00:00:00 Completed [facility] TDAP 2021-09-29 00:00:00 Completed [facility] TDAP 2021-09-29 00:00:00 Completed [facility] TDAP 2021-09-29 00:00:00 Completed [facility] TDAP 2021-09-29 00:00:00 Completed [facility] TDAP 2021-09-29 00:00:00 Completed [facility] TDAP 2021-09-29 00:00:00 Completed [facility] TDAP 2021-09-29 00:00:00 Completed [facility] TDAP 2021-09-29 00:00:00 Completed [facility] TDAP 2021-09-29 00:00:00 Completed [facility] TDAP 2021-09-29 00:00:00 Completed [facility] TDAP 2021-09-29 00:00:00 Completed [facility] TDAP 2021-09-29 00:00:00 Completed [facility] TDAP 2021-09-29 00:00:00 Completed [facility] TDAP 2021-09-29 00:00:00 Completed [facility] TDAP 2021-09-29 00:00:00 Completed [facility] TDAP 2009-10-06 00:00:00 Completed HEPATITIS A [...] Trivalent 1997-11-23 00:00:00 Completed TDAP Unknown Completed [facility] TDAP Unknown Completed [facility] TDAP Unknown Completed [facility] TDAP Unknown Completed [facility] TDAP Unknown Completed [facility] TDAP Unknown Completed [facility] DTaP, Unspecified Formulation Unknown Completed [facility] HEPATITIS A Unknown Completed [facility] Hep B, Adol or Pedi Dosage Unknown Completed [facility] HIB 4 Dose Schedule Unknown Completed [facility] Haemophilus influenzae type b vaccine, conjugate unspecified formulation Unknown Completed [facility] HPV Unknown Completed [facility] Meningococcal Polysaccharide (groups A, C, Y and W-135) conjugate vaccine (MCV4P) Unknown Completed [facility] MMR Unknown Completed [facility] IPV Unknown Completed [facility] Poliovirus, Live, Oral, Trivalent Unknown Completed [facility] HPV9 Unknown Completed [facility] HEPATITIS A Unknown Completed [facility] Haemophilus influenzae type b vaccine, conjugate unspecified formulation Unknown Completed [facility] HPV Unknown Completed [facility] Meningococcal Polysaccharide (groups A, C, Y and W-135) conjugate vaccine (MCV4P) Unknown Completed [facility] HPV9 Unknown Completed [facility] TDAP Unknown Completed [facility] DTaP, Unspecified Formulation Unknown Completed [facility] Hep B, Adol or Pedi Dosage Unknown Completed [facility] HIB 4 Dose Schedule Unknown Completed [facility] MMR Unknown Completed [facility] IPV Unknown Completed [facility] Poliovirus, Live, Oral, Trivalent Unknown Completed [facility] TDAP Unknown Completed [facility] DTaP, Unspecified Formulation Unknown Completed [facility] HEPATITIS A Unknown Completed [facility] Hep B, Adol or Pedi Dosage Unknown Completed [facility] HIB 4 Dose Schedule Unknown Completed [facility] Haemophilus influenzae type b vaccine, conjugate unspecified formulation Unknown Completed [facility] HPV Unknown Completed [facility] Meningococcal Polysaccharide (groups A, C, Y and W-135) conjugate vaccine (MCV4P) Unknown Completed [facility] MMR Unknown Completed [facility] IPV Unknown Completed [facility] Poliovirus, Live, Oral, Trivalent Unknown Completed [facility] HPV9 Unknown Completed [facility] TDAP Unknown Completed [facility] DTaP, Unspecified Formulation Unknown Completed [facility] HEPATITIS A Unknown Completed [facility] Hep B, Adol or Pedi Dosage Unknown Completed [facility] HIB 4 Dose Schedule Unknown Completed [facility] Haemophilus influenzae type b vaccine, conjugate unspecified formulation Unknown Completed [facility] HPV Unknown Completed [facility] Meningococcal Polysaccharide (groups A, C, Y and W-135) conjugate vaccine (MCV4P) Unknown Completed [facility] MMR Unknown Completed [facility] IPV Unknown Completed [facility] Poliovirus, Live, Oral, Trivalent Unknown Completed [facility] HPV9 Unknown Completed [facility] TDAP Unknown Completed [facility] DTaP, Unspecified Formulation Unknown Completed [facility] HEPATITIS A Unknown Completed [facility] Hep B, Adol or Pedi Dosage Unknown Completed [facility] HIB 4 Dose Schedule Unknown Completed [facility] Haemophilus influenzae type b vaccine, conjugate unspecified formulation Unknown Completed [facility] HPV Unknown Completed [facility] Meningococcal Polysaccharide (groups A, C, Y and W-135) conjugate vaccine (MCV4P) Unknown Completed [facility] MMR Unknown Completed [facility] IPV Unknown Completed [facility] Poliovirus, Live, Oral, Trivalent Unknown Completed [facility] HPV9 Unknown Completed [facility] TDAP Unknown Completed [facility] DTaP, Unspecified Formulation Unknown Completed [facility] HEPATITIS A Unknown Completed [facility] Hep B, Adol or Pedi Dosage Unknown Completed [facility] HIB 4 Dose Schedule Unknown Completed [facility] Haemophilus influenzae type b vaccine, conjugate unspecified formulation Unknown Completed [facility] HPV Unknown Completed [facility] Meningococcal Polysaccharide (groups A, C, Y and W-135) conjugate vaccine (MCV4P) Unknown Completed [facility] MMR Unknown Completed [facility] IPV Unknown Completed [facility] Poliovirus, Live, Oral, Trivalent Unknown Completed [facility] HPV9 Unknown Completed [facility] HEPATITIS A Unknown Completed [facility] Haemophilus influenzae type b vaccine, conjugate unspecified formulation Unknown Completed [facility] HPV Unknown Completed [facility] Meningococcal Polysaccharide (groups A, C, Y and W-135) conjugate vaccine (MCV4P) Unknown Completed [facility] HPV9 Unknown Completed [facility] TDAP Unknown Completed [facility] DTaP, Unspecified Formulation Unknown Completed [facility] Hep B, Adol or Pedi Dosage Unknown Completed [facility] HIB 4 Dose Schedule Unknown Completed [facility] MMR Unknown Completed [facility] IPV Unknown Completed [facility] Poliovirus, Live, Oral, Trivalent Unknown Completed [facility] TDAP Unknown Completed [facility] DTaP, Unspecified Formulation Unknown Completed [facility] HEPATITIS A Unknown Completed [facility] Hep B, Adol or Pedi Dosage Unknown Completed [facility] HIB 4 Dose Schedule Unknown Completed [facility] Haemophilus influenzae type b vaccine, conjugate unspecified formulation Unknown Completed [facility] HPV Unknown Completed [facility] Meningococcal Polysaccharide (groups A, C, Y and W-135) conjugate vaccine (MCV4P) Unknown Completed [facility] MMR Unknown Completed [facility] IPV Unknown Completed [facility] Poliovirus, Live, Oral, Trivalent Unknown Completed [facility] HPV9 Unknown Completed [facility] TDAP Unknown Completed [facility] DTaP, Unspecified Formulation Unknown Completed [facility] HEPATITIS A Unknown Completed [facility] Hep B, Adol or Pedi Dosage Unknown Completed [facility] HIB 4 Dose Schedule Unknown Completed [facility] Haemophilus influenzae type b vaccine, conjugate unspecified formulation Unknown Completed [facility] HPV Unknown Completed [facility] Meningococcal Polysaccharide (groups A, C, Y and W-135) conjugate vaccine (MCV4P) Unknown Completed [facility] MMR Unknown Completed [facility] IPV Unknown Completed [facility] Poliovirus, Live, Oral, Trivalent Unknown Completed [facility] HPV9 Unknown Completed [facility] TDAP Unknown Completed [facility] DTaP, Unspecified Formulation Unknown Completed [facility] HEPATITIS A Unknown Completed [facility] Hep B, Adol or Pedi Dosage Unknown Completed [facility] HIB 4 Dose Schedule Unknown Completed [facility] Haemophilus influenzae type b vaccine, conjugate unspecified formulation Unknown Completed [facility] HPV Unknown Completed [facility] Meningococcal Polysaccharide (groups A, C, Y and W-135) conjugate vaccine (MCV4P) Unknown Completed [facility] MMR Unknown Completed [facility] IPV Unknown Completed [facility] Poliovirus, Live, Oral, Trivalent Unknown Completed [facility] HPV9 Unknown Completed [facility] TDAP Unknown Completed [facility] DTaP, Unspecified Formulation Unknown Completed [facility] HEPATITIS A Unknown Completed [facility] Hep B, Adol or Pedi Dosage Unknown Completed [facility] HIB 4 Dose Schedule Unknown Completed [facility] Haemophilus influenzae type b vaccine, conjugate unspecified formulation Unknown Completed [facility] HPV Unknown Completed [facility] Meningococcal Polysaccharide (groups A, C, Y and W-135) conjugate vaccine (MCV4P) Unknown Completed [facility] MMR Unknown Completed [facility] IPV Unknown Completed [facility] Poliovirus, Live, Oral, Trivalent Unknown Completed [facility] HPV9 Unknown Completed [facility] HEPATITIS A Unknown Completed [facility] Haemophilus influenzae type b vaccine, conjugate unspecified formulation Unknown Completed [facility] HPV Unknown Completed [facility] Meningococcal Polysaccharide (groups A, C, Y and W-135) conjugate vaccine (MCV4P) Unknown Completed [facility] HPV9 Unknown Completed [facility] TDAP Unknown Completed [facility] DTaP, Unspecified Formulation Unknown Completed [facility] Hep B, Adol or Pedi Dosage Unknown Completed [facility] HIB 4 Dose Schedule Unknown Completed [facility] MMR Unknown Completed [facility] IPV Unknown Completed [facility] Poliovirus, Live, Oral, Trivalent Unknown Completed [facility] TDAP Unknown Completed [facility] DTaP, Unspecified Formulation Unknown Completed [facility] HEPATITIS A Unknown Completed [facility] Hep B, Adol or Pedi Dosage Unknown Completed [facility] HIB 4 Dose Schedule Unknown Completed [facility] Haemophilus influenzae type b vaccine, conjugate unspecified formulation Unknown Completed [facility] HPV Unknown Completed [facility] Meningococcal Polysaccharide (groups A, C, Y and W-135) conjugate vaccine (MCV4P) Unknown Completed [facility] MMR Unknown Completed [facility] IPV Unknown Completed [facility] Poliovirus, Live, Oral, Trivalent Unknown Completed [facility] HPV9 Unknown Completed [facility] TDAP Unknown Completed [facility] DTaP, Unspecified Formulation Unknown Completed [facility] HEPATITIS A Unknown Completed [facility] Hep B, Adol or Pedi Dosage Unknown Completed [facility] HIB 4 Dose Schedule Unknown Completed [facility] Haemophilus influenzae type b vaccine, conjugate unspecified formulation Unknown Completed [facility] HPV Unknown Completed [facility] Meningococcal Polysaccharide (groups A, C, Y and W-135) conjugate vaccine (MCV4P) Unknown Completed [facility] MMR Unknown Completed [facility] IPV Unknown Completed [facility] Poliovirus, Live, Oral, Trivalent Unknown Completed [facility] HPV9 Unknown Completed [facility] TDAP Unknown Completed [facility] DTaP, Unspecified Formulation Unknown Completed [facility] HEPATITIS A Unknown Completed [facility] Hep B, Adol or Pedi Dosage Unknown Completed [facility] HIB 4 Dose Schedule Unknown Completed [facility] Haemophilus influenzae type b vaccine, conjugate unspecified formulation Unknown Completed [facility] HPV Unknown Completed [facility] Meningococcal Polysaccharide (groups A, C, Y and W-135) conjugate vaccine (MCV4P) Unknown Completed [facility] MMR Unknown Completed [facility] IPV Unknown Completed [facility] Poliovirus, Live, Oral, Trivalent Unknown Completed [facility] HPV9 Unknown Completed [facility] TDAP Unknown Completed [facility] DTaP, Unspecified Formulation Unknown Completed [facility] HEPATITIS A Unknown Completed [facility] Hep B, Adol or Pedi Dosage Unknown Completed [facility] HIB 4 Dose Schedule Unknown Completed [facility] Haemophilus influenzae type b vaccine, conjugate unspecified formulation Unknown Completed [facility] HPV Unknown Completed [facility] Meningococcal Polysaccharide (groups A, C, Y and W-135) conjugate vaccine (MCV4P) Unknown Completed [facility] MMR Unknown Completed [facility] IPV Unknown Completed [facility] Poliovirus, Live, Oral, Trivalent Unknown Completed [facility] HPV9 Unknown Completed [facility] HEPATITIS A Unknown Completed [facility] Haemophilus influenzae type b vaccine, conjugate unspecified formulation Unknown Completed [facility] HPV Unknown Completed [facility] Meningococcal Polysaccharide (groups A, C, Y and W-135) conjugate vaccine (MCV4P) Unknown Completed [facility] HPV9 Unknown Completed [facility] TDAP Unknown Completed [facility] DTaP, Unspecified Formulation Unknown Completed [facility] HEPATITIS A Unknown Completed [facility] Hep B, Adol or Pedi Dosage Unknown Completed [facility] HIB 4 Dose Schedule Unknown Completed [facility] Haemophilus influenzae type b vaccine, conjugate unspecified formulation Unknown Completed [facility] HPV Unknown Completed [facility] Meningococcal Polysaccharide (groups A, C, Y and W-135) conjugate vaccine (MCV4P) Unknown Completed [facility] MMR Unknown Completed [facility] IPV Unknown Completed [facility] Poliovirus, Live, Oral, Trivalent Unknown Completed [facility] HPV9 Unknown Completed [facility] TDAP Unknown Completed [facility] DTaP, Unspecified Formulation Unknown Completed [facility] HEPATITIS A Unknown Completed [facility] Hep B, Adol or Pedi Dosage Unknown Completed [facility] HIB 4 Dose Schedule Unknown Completed [facility] Haemophilus influenzae type b vaccine, conjugate unspecified formulation Unknown Completed [facility] HPV Unknown Completed [facility] Meningococcal Polysaccharide (groups A, C, Y and W-135) conjugate vaccine (MCV4P) Unknown Completed [facility] MMR Unknown Completed [facility] IPV Unknown Completed [facility] Poliovirus, Live, Oral, Trivalent Unknown Completed [facility] HPV9 Unknown Completed [facility] TDAP Unknown Completed [facility] DTaP, Unspecified Formulation Unknown Completed [facility] HEPATITIS A Unknown Completed [facility] Hep B, Adol or Pedi Dosage Unknown Completed [facility] HIB 4 Dose Schedule Unknown Completed [facility] Haemophilus influenzae type b vaccine, conjugate unspecified formulation Unknown Completed [facility] HPV Unknown Completed [facility] Meningococcal Polysaccharide (groups A, C, Y and W-135) conjugate vaccine (MCV4P) Unknown Completed [facility] MMR Unknown Completed [facility] IPV Unknown Completed [facility] Poliovirus, Live, Oral, Trivalent Unknown Completed [facility] HPV9 Unknown Completed [facility] TDAP Unknown Completed [facility] DTaP, Unspecified Formulation Unknown Completed [facility] HEPATITIS A Unknown Completed [facility] Hep B, Adol or Pedi Dosage Unknown Completed [facility] HIB 4 Dose Schedule Unknown Completed [facility] Haemophilus influenzae type b vaccine, conjugate unspecified formulation Unknown Completed [facility] HPV Unknown Completed [facility] Meningococcal Polysaccharide (groups A, C, Y and W-135) conjugate vaccine (MCV4P) Unknown Completed [facility] MMR Unknown Completed [facility] IPV Unknown Completed [facility] Poliovirus, Live, Oral, Trivalent Unknown Completed [facility] HPV9 Unknown Completed [facility] TDAP Unknown Completed [facility] DTaP, Unspecified Formulation Unknown Completed [facility] Hep B, Adol or Pedi Dosage Unknown Completed [facility] HIB 4 Dose Schedule Unknown Completed [facility] MMR Unknown Completed [facility] IPV Unknown Completed [facility] Poliovirus, Live, Oral, Trivalent Unknown Completed [facility] TDAP Unknown Completed [facility] DTaP, Unspecified Formulation Unknown Completed [facility] HEPATITIS A Unknown Completed [facility] Hep B, Adol or Pedi Dosage Unknown Completed [facility] HIB 4 Dose Schedule Unknown Completed [facility] Haemophilus influenzae type b vaccine, conjugate unspecified formulation Unknown Completed [facility] HPV Unknown Completed [facility] Meningococcal Polysaccharide (groups A, C, Y and W-135) conjugate vaccine (MCV4P) Unknown Completed [facility] MMR Unknown Completed [facility] IPV Unknown Completed [facility] Poliovirus, Live, Oral, Trivalent Unknown Completed [facility] HPV9 Unknown Completed [facility] TDAP Unknown Completed [facility] DTaP, Unspecified Formulation Unknown Completed [facility] HEPATITIS A Unknown Completed [facility] Hep B, Adol or Pedi Dosage Unknown Completed [facility] HIB 4 Dose Schedule Unknown Completed [facility] Haemophilus influenzae type b vaccine, conjugate unspecified formulation Unknown Completed [facility] HPV Unknown Completed [facility] Meningococcal Polysaccharide (groups A, C, Y and W-135) conjugate vaccine (MCV4P) Unknown Completed [facility] MMR Unknown Completed [facility] IPV Unknown Completed [facility] Poliovirus, Live, Oral, Trivalent Unknown Completed [facility] HPV9 Unknown Completed [facility] TDAP Unknown Completed [facility] DTaP, Unspecified Formulation Unknown Completed [facility] HEPATITIS A Unknown Completed [facility] Hep B, Adol or Pedi Dosage Unknown Completed [facility] HIB 4 Dose Schedule Unknown Completed [facility] Haemophilus influenzae type b vaccine, conjugate unspecified formulation Unknown Completed [facility] HPV Unknown Completed [facility] Meningococcal Polysaccharide (groups A, C, Y and W-135) conjugate vaccine (MCV4P) Unknown Completed [facility] MMR Unknown Completed [facility] IPV Unknown Completed [facility] Poliovirus, Live, Oral, Trivalent Unknown Completed [facility] HPV9 Unknown Completed [facility] TDAP Unknown Completed [facility] DTaP, Unspecified Formulation Unknown Completed [facility] HEPATITIS A Unknown Completed [facility] Hep B, Adol or Pedi Dosage Unknown Completed [facility] HIB 4 Dose Schedule Unknown Completed [facility] Haemophilus influenzae type b vaccine, conjugate unspecified formulation Unknown Completed [facility] HPV Unknown Completed [facility] Meningococcal Polysaccharide (groups A, C, Y and W-135) conjugate vaccine (MCV4P) Unknown Completed [facility] MMR Unknown Completed [facility] IPV Unknown Completed [facility] Poliovirus, Live, Oral, Trivalent Unknown Completed [facility] HPV9 Unknown Completed [facility] TDAP Unknown Completed [facility] DTaP, Unspecified Formulation Unknown Completed [facility] HEPATITIS A Unknown Completed [facility] Hep B, Adol or Pedi Dosage Unknown Completed [facility] HIB 4 Dose Schedule Unknown Completed [facility] Haemophilus influenzae type b vaccine, conjugate unspecified formulation Unknown Completed [facility] HPV Unknown Completed [facility] Meningococcal Polysaccharide (groups A, C, Y and W-135) conjugate vaccine (MCV4P) Unknown Completed [facility] MMR Unknown Completed [facility] IPV Unknown Completed [facility] Poliovirus, Live, Oral, Trivalent Unknown Completed [facility] HPV9 Unknown Completed [facility] TDAP Unknown Completed [facility] DTaP, Unspecified Formulation Unknown Completed [facility] HEPATITIS A Unknown Completed [facility] Hep B, Adol or Pedi Dosage Unknown Completed [facility] HIB 4 Dose Schedule Unknown Completed [facility] Haemophilus influenzae type b vaccine, conjugate unspecified formulation Unknown Completed [facility] HPV Unknown Completed [facility] Meningococcal Polysaccharide (groups A, C, Y and W-135) conjugate vaccine (MCV4P) Unknown Completed [facility] MMR Unknown Completed [facility] IPV Unknown Completed [facility] Poliovirus, Live, Oral, Trivalent Unknown Completed [facility] HPV9 Unknown Completed [facility] TDAP Unknown Completed [facility] DTaP, Unspecified Formulation Unknown Completed [facility] HEPATITIS A Unknown Completed [facility] Hep B, Adol or Pedi Dosage Unknown Completed [facility] HIB 4 Dose Schedule Unknown Completed [facility] Haemophilus influenzae type b vaccine, conjugate unspecified formulation Unknown Completed [facility] HPV Unknown Completed [facility] Meningococcal Polysaccharide (groups A, C, Y and W-135) conjugate vaccine (MCV4P) Unknown Completed [facility] MMR Unknown Completed [facility] IPV Unknown Completed [facility] Poliovirus, Live, Oral, Trivalent Unknown Completed [facility] HPV9 Unknown Completed [facility] TDAP Unknown Completed [facility] DTaP, Unspecified Formulation Unknown Completed [facility] HEPATITIS A Unknown Completed [facility] Hep B, Adol or Pedi Dosage Unknown Completed [facility] HIB 4 Dose Schedule Unknown Completed [facility] Haemophilus influenzae type b vaccine, conjugate unspecified formulation Unknown Completed [facility] HPV Unknown Completed [facility] Meningococcal Polysaccharide (groups A, C, Y and W-135) conjugate vaccine (MCV4P) Unknown Completed [facility] MMR Unknown Completed [facility] IPV Unknown Completed [facility] Poliovirus, Live, Oral, Trivalent Unknown Completed [facility] HPV9 Unknown Completed [facility] HEPATITIS A Unknown Completed [facility] Haemophilus influenzae type b vaccine, conjugate unspecified formulation Unknown Completed [facility] HPV Unknown Completed [facility] Meningococcal Polysaccharide (groups A, C, Y and W-135) conjugate vaccine (MCV4P) Unknown Completed [facility] HPV9 Unknown Completed [facility] TDAP Unknown Completed [facility] DTaP, Unspecified Formulation Unknown Completed [facility] Hep B, Adol or Pedi Dosage Unknown Completed [facility] HIB 4 Dose Schedule Unknown Completed [facility] MMR Unknown Completed [facility] IPV Unknown Completed [facility] Poliovirus, Live, Oral, Trivalent Unknown Completed [facility] HEPATITIS A Unknown Completed [facility] Haemophilus influenzae type b vaccine, conjugate unspecified formulation Unknown Completed [facility] HPV Unknown Completed [facility] Meningococcal Polysaccharide (groups A, C, Y and W-135) conjugate vaccine (MCV4P) Unknown Completed [facility] HPV9 Unknown Completed [facility] TDAP Unknown Completed [facility] DTaP, Unspecified Formulation Unknown Completed [facility] Hep B, Adol or Pedi Dosage Unknown Completed [facility] HIB 4 Dose Schedule Unknown Completed [facility] MMR Unknown Completed [facility] IPV Unknown Completed [facility] Poliovirus, Live, Oral, Trivalent Unknown Completed [facility] HEPATITIS A Unknown Completed [facility] Haemophilus influenzae type b vaccine, conjugate unspecified formulation Unknown Completed [facility] HPV Unknown Completed [facility] Meningococcal Polysaccharide (groups A, C, Y and W-135) conjugate vaccine (MCV4P) Unknown Completed [facility] HPV9 Unknown Completed [facility] TDAP Unknown Completed [facility] DTaP, Unspecified Formulation Unknown Completed [facility] Hep B, Adol or Pedi Dosage Unknown Completed [facility] HIB 4 Dose Schedule Unknown Completed [facility] MMR Unknown Completed [facility] IPV Unknown Completed [facility] Poliovirus, Live, Oral, Trivalent Unknown Completed [facility] TDAP Unknown Completed [facility] DTaP, Unspecified Formulation Unknown Completed [facility] HEPATITIS A Unknown Completed [facility] Hep B, Adol or Pedi Dosage Unknown Completed [facility] HIB 4 Dose Schedule Unknown Completed [facility] Haemophilus influenzae type b vaccine, conjugate unspecified formulation Unknown Completed [facility] HPV Unknown Completed [facility] Meningococcal Polysaccharide (groups A, C, Y and W-135) conjugate vaccine (MCV4P) Unknown Completed [facility] MMR Unknown Completed [facility] IPV Unknown Completed [facility] Poliovirus, Live, Oral, Trivalent Unknown Completed [facility] HPV9 Unknown Completed [facility] TDAP Unknown Completed [facility] DTaP, Unspecified Formulation Unknown Completed [facility] HEPATITIS A Unknown Completed [facility] Hep B, Adol or Pedi Dosage Unknown Completed [facility] HIB 4 Dose Schedule Unknown Completed [facility] Haemophilus influenzae type b vaccine, conjugate unspecified formulation Unknown Completed [facility] HPV Unknown Completed [facility] Meningococcal Polysaccharide (groups A, C, Y and W-135) conjugate vaccine (MCV4P) Unknown Completed [facility] MMR Unknown Completed [facility] IPV Unknown Completed [facility] Poliovirus, Live, Oral, Trivalent Unknown Completed [facility] HPV9 Unknown Completed [facility] TDAP Unknown Completed [facility] DTaP, Unspecified Formulation Unknown Completed [facility] HEPATITIS A Unknown Completed [facility] Hep B, Adol or Pedi Dosage Unknown Completed [facility] HIB 4 Dose Schedule Unknown Completed [facility] Haemophilus influenzae type b vaccine, conjugate unspecified formulation Unknown Completed [facility] HPV Unknown Completed [facility] Meningococcal Polysaccharide (groups A, C, Y and W-135) conjugate vaccine (MCV4P) Unknown Completed [facility] MMR Unknown Completed [facility] IPV Unknown Completed [facility] Poliovirus, Live, Oral, Trivalent Unknown Completed [facility] HPV9 Unknown Completed [facility] TDAP Unknown Completed [facility] DTaP, Unspecified Formulation Unknown Completed [facility] HEPATITIS A Unknown Completed [facility] Hep B, Adol or Pedi Dosage Unknown Completed [facility] HIB 4 Dose Schedule Unknown Completed [facility] Haemophilus influenzae type b vaccine, conjugate unspecified formulation Unknown Completed [facility] HPV Unknown Completed [facility] Meningococcal Polysaccharide (groups A, C, Y and W-135) conjugate vaccine (MCV4P) Unknown Completed [facility] MMR Unknown Completed [facility] IPV Unknown Completed [facility] Poliovirus, Live, Oral, Trivalent Unknown Completed [facility] HPV9 Unknown Completed [facility] TDAP Unknown Completed [facility] DTaP, Unspecified Formulation Unknown Completed [facility] HEPATITIS A Unknown Completed [facility] Hep B, Adol or Pedi Dosage Unknown Completed [facility] HIB 4 Dose Schedule Unknown Completed [facility] Haemophilus influenzae type b vaccine, conjugate unspecified formulation Unknown Completed [facility] HPV Unknown Completed [facility] Meningococcal Polysaccharide (groups A, C, Y and W-135) conjugate vaccine (MCV4P) Unknown Completed [facility] MMR Unknown Completed [facility] IPV Unknown Completed [facility] Poliovirus, Live, Oral, Trivalent Unknown Completed [facility] HPV9 Unknown Completed [facility] Vital Signs Vital Name Observation Time Observation Value Comments S ource Systolic blood pressure 2024-01-29 19:50:00 125 mm[Hg] [facility] Diastolic blood pressure 2024-01-29 19:50:00 85 mm[Hg] [facility] Heart rate 2024-01-29 19:50:00 103 /min [facility] Respiratory rate 2024-01-29 19:50:00 15 /min [facility] Oxygen saturation in Arterial blood by Pulse oximetry 2024-01-29 19:50:00 96 /min [facility] Body temperature 2024-01-29 18:30:00 36.33 Ava [facility] Body height 2024-01-21 21:15:00 [facility] 2024-01-21 21:15:00 122.471 kg [facility] BMI 2024-01-21 21:15:00 44.93 kg/m2 [facility] Systolic blood pressure 2024-01-29 18:35:00 127 mm[Hg] [facility] Diastolic blood pressure 2024-01-29 18:35:00 82 mm[Hg] [facility] Heart rate 2024-01-29 18:35:00 114 /min [facility] Respiratory rate 2024-01-29 18:35:00 18 /min [facility] Oxygen saturation in Arterial blood by Pulse oximetry 2024-01-29 18:35:00 100 /min [facility] Body temperature 2024-01-29 18:30:00 36.33 Ava [facility] Body height 2024-01-21 21:15:00 165.1 cm [facility] Body weight 2024-01-21 21:15:00 122.471 kg [facility] BMI 2024-01-21 21:15:00 44.93 kg/m2 [facility] Systolic blood pressure 2024-01-12 11:25:00 156 mm[Hg] [facility] Diastolic blood pressure 2024-01-12 11:25:00 110 mm[Hg] [facility] Respiratory rate 2024-01-12 11:25:00 12 /min [facility] Oxygen saturation in Arterial blood by Pulse oximetry 2024-01-12 11:25:00 97 /min [facility] Heart rate 2024-01-12 11:15:00 88 /min [facility] Body temperature 2024-01-12 09:59:00 36.5 Ava [facility] Body height 2024-01-12 09:59:00 165.1 cm [facility] Body weight 2024-01-12 09:59:00 122.471 kg [facility] BMI 2024-01-12 09:59:00 44.93 kg/m2 [facility] Systolic blood pressure 2024-01-07 17:05:00 136 mm[Hg] [facility] Diastolic blood pressure 2024-01-07 17:05:00 99 mm[Hg] [facility] Heart rate 2024-01-07 17:05:00 109 /min [facility] Oxygen saturation in Arterial blood by Pulse oximetry 2024-01-07 17:05:00 100 /min [facility] Body temperature 2024-01-07 17:02:00 36.39 A[facility] Respiratory rate 2024-01-07 17:02:00 18 /min [facility] Body height 2024-01-07 17:02:00 165.1 cm [facility] Body weight 2024-01-07 17:02:00 122.471 kg [facility] BMI 2024-01-07 17:02:00 44.93 kg/m2 [facility] Respiratory rate 2024-01-03 17:27:00 18 /min [facility] Body height 2024-01-03 17:27:00 165.1 cm [facility] Body weight 2024-01-03 17:27:00 120.203 kg [facility] BMI 2024-01-03 17:27:00 44.10 kg/m2 [facility] Oxygen saturation in Arterial blood by Pulse oximetry 2024-01-03 17:27:00 99 /min [facility] Systolic blood pressure 2024-01-03 17:27:00 111 mm[Hg] [facility] Diastolic blood pressure 2024-01-03 17:27:00 77 mm[Hg] [facility] Heart rate 2024-01-03 17:27:00 99 /min [facility] Body temperature 2024-01-03 17:27:00 36.5 [facility] Systolic blood pressure 2023-12-24 17:35:00 118 mm[Hg] [facility] Diastolic blood pressure 2023-12-24 17:35:00 80 mm[Hg] [facility] Heart rate 2023-12-24 17:35:00 90 /min [facility] Respiratory rate 2023-12-24 17:35:00 15 /min [facility] Oxygen saturation in Arterial blood by Pulse oximetry 2023-12-24 17:35:00 96 /min [facility] Body temperature 2023-12-24 17:05:00 36 A[facility] Body height 2023-12-24 16:37:00 165.1 cm [facility] Body weight 2023-12-24 16:37:00 122.154 kg [facility] BMI 2023-12-24 16:37:00 44.81 kg/m2 [facility] Systolic blood pressure 2023-12-24 17:05:00 100 mm[Hg] [facility] Diastolic blood pressure 2023-12-24 17:05:00 56 mm[Hg] [facility] Heart rate 2023-12-24 17:05:00 89 /min [facility] Body temperature 2023-12-24 17:05:00 36 Ava [facility] Respiratory rate 2023-12-24 17:05:00 16 /min [facility] Oxygen saturation in Arterial blood by Pulse oximetry 2023-12-24 17:05:00 94 /min [facility] Body height 2023-12-24 16:37:00 165.1 cm Univ [facility] Body weight 2023-12-24 16:37:00 [facility] BMI 2023-12-24 16:37:00 44.81 kg/m2 [facility] Systolic blood pressure 2023-11-27 19:10:00 111 mm[Hg] [facility] Diastolic blood pressure 2023-11-27 19:10:00 76 mm[Hg] [facility] Heart rate 2023-11-27 19:10:00 111 /min [facility] Res[facility] rate 2023-11-27 19:10:00 18 /min [facility] Body height 2023-11-27 19:10:00 165.1 cm Univ [facility] Body weight 2023-11-27 19:10:00 124.286 kg Univ [facility] BMI 2023-11-27 19:10:00 45.60 kg/m2 Univ [facility] Systolic blood pressure 2023-11-26 20:40:00 112 mm[Hg] [facility] Diastolic blood pressure 2023-11-26 20:40:00 74 mm[Hg] [facility] Heart rate 2023-11-26 20:40:00 103 /min [facility] Body temperature 2023-11-26 20:40:00 36.39 Ava [facility] Body height 2023-11-26 20:40:00 165.1 cm Univ [facility] Body weight 2023-11-26 20:40:00 123.923 kg Univ [facility] BMI 2023-11-26 20:40:00 45.46 kg/m2 Univ [facility] Systolic blood pressure 2023-11-22 18:07:00 134 mm[Hg] [facility] Diastolic blood pressure 2023-11-22 18:07:00 89 mm[Hg] [facility] Heart rate 2023-11-22 18:07:00 126 /min [facility] Body temperature 2023-11-22 18:07:00 36.28 Ava [facility] Respiratory rate 2023-11-22 18:07:00 18 /min [facility] Body height 2023-11-22 18:07:00 165.1 cm Univ [facility] Body weight 2023-11-22 18:07:00 125.102 kg Univ [facility] BMI 2023-11-22 18:07:00 45.90 [facility]/m2 [facility] Oxygen saturation in Arterial blood by Pulse oximetry 2023-11-22 18:07:00 98 /min [facility] Systolic blood pressure 2023-11-19 14:38:00 127 mm[Hg] [facility] Diastolic blood pressure 2023-11-19 14:38:00 86 mm[Hg] [facility] Heart rate 2023-11-19 14:38:00 107 /min [facility] Body temperature 2023-11-19 14:38:00 36.33 Ava [facility] Respiratory rate 2023-11-19 14:38:00 18 /min [facility] Body height 2023-11-19 14:38:00 165.1 cm [facility] Body weight 2023-11-19 14:38:00 123.741 kg [facility] BMI 2023-11-19 14:38:00 45.40 kg/m2 [facility] Oxygen saturation in Arterial blood by Pulse oximetry 2023-11-19 14:38:00 98 /min [facility] Systolic blood pressure 2023-11-18 16:30:00 156 mm[Hg] [facility] Diastolic blood pressure 2023-11-18 16:30:00 113 mm[Hg] [facility] Heart rate 2023-11-18 16:30:00 88 /min [facility] Respiratory rate 2023-11-18 16:30:00 18 /min [facility] Oxygen saturation in Arterial blood by Pulse oximetry 2023-11-18 16:30:00 98 /min [facility] Body temperature 2023-11-18 10:28:00 36.72 Ava [facility] Body height 2023-11-18 10:27:00 165.1 cm [facility] Body weight 2023-11-18 10:27:00 122.471 kg [facility] BMI 2023-11-18 10:27:00 44.93 kg/m2 [facility] Systolic blood pressure 2023-11-08 20:00:00 123 mm[Hg] [facility] Diastolic blood pressure 2023-11-08 20:00:00 91 mm[Hg] [facility] Respiratory rate 2023-11-08 20:00:00 17 /min [facility] Heart rate 2023-11-08 19:00:00 75 /min [facility] Oxygen saturation in Arterial blood by Pulse oximetry 2023-11-08 19:00:00 100 /min [facility] Body temperature 2023-11-08 17:00:00 36.83 Ava [facility] Body height 2023-11-08 15:16:00 165.1 cm [facility] Body weight 2023-11-08 15:16:00 122.471 kg [facility] BMI 2023-11-08 15:16:00 44.93 kg/m2 [facility] Systolic blood pressure 2023-08-06 19:07:00 135 mm[Hg] [facility] Diastolic blood pressure 2023-08-06 19:07:00 93 mm[Hg] [facility] Heart rate 2023-08-06 19:04:00 81 /min [facility] Body temperature 2023-08-06 19:04:00 36.11 Ava [facility] Respiratory rate 2023-08-06 19:04:00 18 /min [facility] Body height 2023-08-06 19:04:00 165.1 cm [facility] Body weight 2023-08-06 19:04:00 140.66 kg [facility] BMI 2023-08-06 19:04:00 51.60 kg/m2 [facility] Oxygen saturation in Arterial blood by Pulse oximetry 2023-08-06 19:04:00 100 /min [facility] Systolic blood pressure 2023-06-21 16:24:00 156 mm[Hg] [place] [facility] Diastolic blood pressure 2023-06-21 16:24:00 98 mm[Hg] [facility] Heart rate 2023-06-21 16:24:00 94 /min [facility] Body temperature 2023-06-21 16:24:00 37.22 Ava [facility] Respiratory rate 2023-06-21 16:24:00 16 /min [facility] Body height 2023-06-21 16:24:00 165.1 cm Univ [facility] Body weight 2023-06-21 16:24:00 127.007 kg Univ [facility] BMI 2023-06-21 16:24:00 46.59 kg/m2 Univ [facility] Oxygen saturation in Arterial blood by Pulse oximetry 2023-06-21 16:24:00 100 /min [facility] Systolic blood pressure 2023-01-24 20:58:00 132 mm[Hg] [facility] Diastolic blood pressure 2023-01-24 20:58:00 96 mm[Hg] [facility] Heart rate 2023-01-24 20:56:00 95 /min [facility] Body temperature 2023-01-24 20:56:00 36.67 Ava [facility] Respiratory rate 2023-01-24 20:56:00 18 /min [facility] Body height 2023-01-24 20:56:00 165.1 cm Univ [facility] Body weight 2023-01-24 20:56:00 138.937 kg Univ [facility] BMI 2023-01-24 20:56:00 50.97 kg/m2 Univ [facility] Oxygen saturation in Arterial blood by Pulse oximetry 2023-01-24 20:56:00 100 /min [facility] Systolic blood pressure 2022-12-25 19:43:00 131 mm[Hg] [facility] Diastolic blood pressure 2022-12-25 19:43:00 86 mm[Hg] [facility] Heart rate 2022-12-25 19:43:00 72 /min [facility] Body temperature 2022-12-25 19:43:00 36.28 Ava [facility] Respiratory rate 2022-12-25 19:43:00 16 /min [facility] Body height 2022-12-25 19:43:00 165.1 cm Univ [facility] Body weight 2022-12-25 19:43:00 138.347 kg Univ [facility] BMI 2022-12-25 19:43:00 50.75 kg/m2 [facility] Oxygen saturation in Arterial blood by Pulse oximetry 2022-12-25 19:43:00 99 /min [facility] Systolic blood pressure 2022-01-20 20:03:00 135 mm[Hg] [facility] Diastolic blood pressure 2022-01-20 20:03:00 87 mm[Hg] [facility] Heart rate 2022-01-20 20:03:00 87 /min [facility] Body temperature 2022-01-20 20:03:00 36.56 Ava [facility] Respiratory rate 2022-01-20 20:03:00 17 /min [facility] Body height 2022-01-20 20:03:00 165.1 cm [facility] Body weight 2022-01-20 20:03:00 118.706 kg [facility] BMI 2022-01-20 20:03:00 43.55 kg/m2 [facility] Systolic blood pressure 2021-12-22 13:14:00 125 mm[Hg] [facility] Diastolic blood pressure 2021-12-22 13:14:00 86 mm[Hg] [facility] Heart rate 2021-12-22 13:14:00 96 /min [facility] Body temperature 2021-12-22 13:14:00 36.61 Ava [facility] Respiratory rate 2021-12-22 13:14:00 20 /min [facility] Body height 2021-12-22 13:14:00 165.1 cm [facility] Body weight 2021-12-22 13:14:00 108.41 kg [facility] BMI 2021-12-22 13:14:00 39.77 kg/m2 [facility] Systolic blood pressure 2021-11-29 12:00:00 142 mm[Hg] [facility] Diastolic blood pressure 2021-11-29 12:00:00 87 mm[Hg] [facility] Heart rate 2021-11-29 12:00:00 79 /min [facility] Body temperature 2021-11-29 12:00:00 36.72 Ava [facility] Respiratory rate 2021-11-29 12:00:00 18 /min [facility] Oxygen saturation in Arterial blood by Pulse oximetry 2021-11-29 12:00:00 100 /min [facility] Body height 2021-11-26 08:32:00 165.1 cm Univ [facility] Body weight 2021-11-26 08:32:00 114.034 [facility] BMI 2021-11-26 08:32:00 41.84 kg/m2 [facility] Systolic blood pressure 2021-11-23 14:45:00 133 mm[Hg] [facility] Diastolic blood pressure 2021-11-23 14:45:00 102 mm[Hg] [facility] Heart rate 2021-11-23 14:42:00 77 /min [facility] Body temperature 2021-11-23 14:42:00 36.33 Ava [facility] Respiratory rate 2021-11-23 14:42:00 18 /min [facility] Body height 2021-11-23 14:42:00 165.1 cm Univ [facility] Body weight 2021-11-23 14:42:00 114.17 kg [facility] BMI 2021-11-23 14:42:00 41.89 kg/m2 [facility] Systolic blood pressure 2021-11-11 15:03:00 120 mm[Hg] [facility] Diastolic blood pressure 2021-11-11 15:03:00 82 mm[Hg] [facility] Heart rate 2021-11-11 14:58:00 105 /min [facility] Body temperature 2021-11-11 14:57:00 36.33 Ava [facility] Respiratory rate 2021-11-11 14:57:00 18 /min [facility] Body height 2021-11-11 14:57:00 165.1 cm [facility] Body weight 2021-11-11 14:57:00 113.541 kg [facility] BMI 2021-11-11 14:57:00 41.65 kg/m2 [facility] Systolic blood pressure 2021-10-27 23:55:00 129 mm[Hg] [facility] Diastolic blood pressure 2021-10-27 23:55:00 76 mm[Hg] [facility] Heart rate 2021-10-27 23:55:00 88 /min [facility] Oxygen saturation in Arterial blood by Pulse oximetry 2021-10-27 23:55:00 96 /min [facility] Body temperature 2021-10-27 23:14:00 37 Ava [facility] Respiratory rate 2021-10-27 23:14:00 18 /min [facility] Body height 2021-10-27 22:26:00 165.1 cm [facility] Body weight 2021-10-27 22:26:00 111.131 kg [facility] BMI 2021-10-27 22:26:00 40.77 kg/m2 [facility] Systolic blood pressure 2021-10-27 18:08:00 140 mm[Hg] [facility] Diastolic blood pressure 2021-10-27 18:08:00 94 mm[Hg] [facility] Heart rate 2021-10-27 18:07:00 88 /min [facility] Body temperature 2021-10-27 18:07:00 35.61 Ava [facility] Respiratory rate 2021-10-27 18:07:00 18 /min [facility] Body weight 2021-10-27 18:07:00 110.224 [facility] BMI 2021-10-27 18:07:00 40.44 kg/m2 [facility] Procedures Procedure Date / Time Performed Performing Clinician Source POCT TEST 2024-01-29 16:18:00 Gianni Lopez [facility] POCT TEST 2024-01-29 16:18:00 Gianni Lopez [facility] [address] - [place] LAPAROSCOPY SURG CHOLECYSTECTOMY 2024-01-29 16:15:00 Eva Bryan [facility] POCT TEST 2024-01-12 10:32:00 Caro Bauer [facility] LIPASE 2024-01-12 10:06:00 Caro Bauer [facility] COMP. METABOLIC PANEL (46027) 2024-01-12 10:06:00 Caro Bauer [facility] CBC WITH DIFF 2024-01-12 10:06:00 Caro Bauer [facility] EGD (ENDO) 2023-12-24 17:08:17 Obi-Franklin [facility] EGD (ENDO) 2023-12-24 17:08:17 Jeimy [facility] SURGICAL PATHOLOGY EXAM 2023-12-24 16:57:00 Yisel Hart [facility] ESOPHAGOGASTRODUODENOSCOPY 2023-12-24 16:36:00 Yisel Hart [facility] US OVARY TORSION 2023-11-18 16:33:50 Kelly Simms [facility] URINALYSIS 2023-11-18 15:15:00 Caro Bauer [facility] CT ABDOMEN PELVIS W CONTRAST 2023-11-18 13:38:59 Caro Bauer [facility] LIPASE 2023-11-18 11:10:00 Caro Bauer [facility] TEST, SERUM 2023-11-18 11:10:00 Caro Bauer [facility] COMP. METABOLIC PANEL (83406) 2023-11-18 11:10:00 Caro Bauer [facility] CBC WITH DIFF 2023-11-18 11:10:00 Caro Bauer [facility] COMP. METABOLIC PANEL (71174) 2023-11-08 16:43:00 Tiff Isabel [facility] LIPASE 2023-11-08 16:01:00 Tiff Isabel [facility] CBC WITH DIFF 2023-11-08 16:01:00 Tiff Isabel [facility] URINALYSIS 2023-11-08 16:01:00 Tiff Isabel [facility] POCT TEST 2023-11-08 16:01:00 Tiff Isabel [facility] ZINC, SERUM 2023-08-06 19:42:00 [facility] VITAMIN B6, PLASMA 2023-08-06 19:42:00 [facility] FREE T4 2023-08-06 19:42:00 [facility] THYROID STIMULATING HORMONE 2023-08-06 19:42:00 [facility] COMP. METABOLIC PANEL (75391) 2023-08-06 19:42:00 [facility] CBC WITH DIFF 2023-08-06 19:42:00 [facility] GLYCOSYLATED HEMOGLOBIN (A1C) 2023-08-06 19:42:00 [facility] VITAMIN D, 25-OH 2023-08-06 19:42:00 [facility] FREE T3 2023-08-06 19:42:00 [facility] POCT TEST 2023-06-21 16:30:00 Bonita Trivedi [facility] URINALYSIS 2023-06-21 16:29:00 Bonita Trivedi [facility] INSURANCE CORRESPONDENCE 2023-01-15 06:01:00 Doctor Unassigned, [place] [facility] INSURANCE CORRESPONDENCE 2023-01-06 06:01:00 Doctor Unassigned, [place] [facility] GARDASIL 9 (HPV 9V) VACCINE 2022-12-25 20:04:37 [place], [facility] POCT TEST 2022-01-20 20:18:00 Jacinta Voss [facility] DME/SUPPLY JUSTIFICATION 2022-01-03 06:01:00 Doctor Unassigned, [place] [facility] CBC WITH DIFF 2021-11-28 08:48:00 Adum, Vanessa Cowan [facility] CENTRAL NEURAXIAL BLOCK 2021-11-26 20:52:15 Wilver Owens [facility] HB ABO GROUPING 2021-11-26 09:30:00 Adum, Vanessa Cowan [facility] LACTATE DEHYDROGENASE 2021-11-26 09:29:00 Adum, Vanessa Cowan [facility] URIC ACID 2021-11-26 09:29:00 Adum, Vanessa Cowan [facility] COMP. METABOLIC PANEL (71774) 2021-11-26 09:29:00 Adum, Vanessa Cowan [facility] URINE DRUG (IMMUNOASSAY) - COMPREHENSIVE DRUG SCREEN 2021-11-26 09:29:00 Adum, Vanessa Cowan [facility] CBC WITH DIFF 2021-11-26 09:29:00 Adum, Vanessa Cowan [facility] URINALYSIS 2021-11-26 09:29:00 Adum, Vanessa Cowan [facility] HEPATITIS B SURFACE ANTIGEN 2021-11-26 09:29:00 Adum, Vanessa Cowan [facility] ADC OR THOM[place]ON ONLY - RPR 2021-11-26 09:29:00 Adum, Vanessa Cowan [facility] HIV 1/2 AG-AB WITH REFLEX 2021-11-26 09:29:00 Adum, Vanessa Cowan [facility] CONSENT/REFUSAL FOR DIAGNOSI S AND TREATMENT 2021-11-26 08:08:59 Doctor Unassigned, [place] [facility] POCT URINALYSIS 2021-11-23 14:56:00 Rodrick Pete [facility] POCT URINALYSIS 2021-11-11 14:58:00 Rodrick Pete [facility] CONSENT/REFUSAL FOR DIAGNOSI S AND TREATMENT 2021-10-27 22:13:12 Doctor Unassigned, [place] [facility] POCT URINALYSIS 2021-10-27 18:21:00 Rodrick Pete [facility] Encounters Start Date/Time End Date/Time Encounter Type Admission Type Attending Clinicians Care Facility Care Department Encounter ID Source 2024-02-08 00:00:00 2024-02-08 14:40:57 Telephone Eva Bryan [facility] 1.2.840.114 350.1.13.10 4.2.7.2.686 [id number] [facility] 2024-02-07 00:00:00 2024-02-08 14:24:51 Patient Secure Msg Eva Bryan [facility] 1.2.840.114 350.1.13.10 4.2.7.2.686 [id number] [facility] 2024-01-30 00:00:00 2024-01-31 08:09:51 Telephone Eva Bryan [facility] 1.2.840.114 350.1.13.10 4.2.7.2.686 [id number] [facility] 2024-01-29 08:46:00 2024-01-29 14:10:00 Outpatient R EVA BRYAN [facility] [id number] [facility] 2024-01-29 08:46:00 2024-01-29 14:10:00 Hospital Encounter [facility] 1.2.840.114 350.1.13.10 4.2.7.2.686 [id number] [facility] 2024-01-29 10:00:00 2024-01-29 12:35:00 Surgery Eva [facility] 1.2.840.114 350.1.13.10 4.2.7.2.686 [id number] [facility] 2024-01-25 00:00:00 2024-01-28 13:50:46 Refill Jess Munson [facility] 1.2.840.114 350.1.13.10 4.2.7.2.686 [id number] [facility] 2024-01-12 03:54:00 2024-01-12 05:48:00 Emergency X CARO BAUER WAKILI [facility] ERT [id number] [facility] 2024-01-12 03:54:00 2024-01-12 05:48:00 Emergency Caro Bauer [facility] 1.2.840.114 350.1.13.10 4.2.7.2.686 [id number] [facility] 2024-01-11 00:00:00 2024-01-11 12:50:05 Patient Secure [facility] 1.2.840.114 350.1.13.10 4.2.7.2.686 [id number] [facility] 2024-01-10 00:00:00 2024-01-11 05:46:35 Patient Secure [facility] 1.2.840.114 350.1.13.10 4.2.7.2.686 [id number] [facility] 2024-01-07 11:15:00 2024-01-07 12:06:32 Outpatient R EVA BRYAN [facility] [id number] [facility] 2024-01-07 11:15:00 2024-01-07 12:06:32 Office Visit Eva Bryan [facility] 1.2.840.114 350.1.13.10 4.2.7.2.686 [id number] [facility] 2023-11-30 00:00:00 2024-01-05 18:24:03 Patient [facility] 1.2.840.114 350.1.13.10 4.2.7.2.686 [id number] [facility] 2024-01-03 11:00:00 2024-01-03 11:41:02 Outpatient R JESS MUNSON [facility] [id number] [facility] 2024-01-03 11:00:00 2024-01-03 11:41:02 [facility] 1.2.840.114 350.1.13.10 4.2.7.2.686 [id number] [facility] 2024-01-02 00:00:00 2024-01-02 08:01:22 Telephone Jeimy [facility] 1.2.840.114 350.1.13.10 4.2.7.2.686 [id number] [facility] 2023-12-25 00:00:00 2023-12-27 05:31:52 Refill Jeimy [facility] 1.2.840.114 350.1.13.10 4.2.7.2.686 [id number] [facility] 2023-12-25 00:00:00 2023-12-25 12:23:25 Refill Yann Nayak [facility] ([facility]) 1.2.840.114 350.1.13.10 4.2.7.2.686 [id number] [facility] 2023-12-24 00:00:00 2023-12-24 16:00:22 Patient Secure Msg Yisel Hart [facility] ([facility]) 1.84.114 350.1.13.10 4.2.7.2.686 [id number] [facility] 2023-12-24 09:50:00 2023-12-24 11:47:00 Outpatient R YISEL HART [facility] G[facility] [id number] [facility] 2023-12-24 09:50:00 2023-12-24 11:47:00 Hospital Encounter Yisel Hart [facility] 1.840.114 350.1.13.10 4.2.7.2.686 [id number] [facility] 2023-12-24 10:45:00 2023-12-24 11:15:00 Surgery Yisel Hart [facility] 1.284.114 350.1.13.10 4.2.7.2.686 [id number] [facility] 2023-12-18 14:30:00 2023-12-18 14:30:00 Outpatient R KONRAD ORDOÑEZ OGECHUKWU [facility] [id number] [facility] 2023-12-18 13:00:00 2023-12-18 13:00:00 Outpatient R ARUN-JESS REID UZOMA [facility] [id number] [facility] 2023-12-17 00:00:00 2023-12-18 11:14:39 Telephone Jess Munson [facility]ESS[facility] 1.2840.114 350.1.13.10 4.2.7.2.686 [id number] [facility] 2023-12-12 08:40:00 2023-12-12 08:40:00 Outpatient R OBI-FRANKLIN , JESS OBI-FRANKLIN , JESS [facility] [id number] [facility] 2023-12-07 00:00:00 2023-12-10 08:32:14 Refill Ciro Ordo[facility] 1.2.840.114 350.1.13.10 4.2.7.2.686 [id number] [facility] 2023-11-30 00:00:00 2023-12-04 09:32:31 Patient Secure MsJose Manuel Meeksley Geo [facility] ([facility]) 1.84.114 350.1.13.10 4.2.7.2.686 [id number] [facility] 2023-11-30 15:45:00 2023-11-30 15:45:00 Outpatient R ISAAC SHAY [facility] [id number] [facility] 2023-11-27 14:00:00 2023-11-27 14:37:01 Outpatient R VANESSA LEYVA VIVIAN [facility] [id number] [facility] 2023-11-27 14:00:00 2023-11-27 14:37:01 Office Visit Vanessa Leyva [facility] 1.84.114 350.1.13.10 4.2.7.2.686 [id number] [facility] 2023-11-26 15:00:00 2023-11-26 15:30:00 Office Visit Jose De Jesus Medina [facility] 1.2.840.114 350.1.13.10 4.2.7.2.686 [id number] [facility] 2023-11-26 15:00:00 2023-11-26 15:00:00 Outpatient R JOSE DE JESUS MEDINA VIEN [facility] [id number] [facility] 2023-11-22 13:00:00 2023-11-22 13:30:00 Office Visit Tianna Mei [facility] ([facility]) 1.20.114 350.1.13.10 4.2.7.2.686 [id number] [facility] 2023-11-22 13:00:00 2023-11-22 13:00:00 Outpatient R TIANNA MEI ASHLEY [facility] [id number] [facility] 2023-11-20 10:00:00 2023-11-20 10:00:00 Outpatient R [facility] [id number] [facility] 2023-11-19 10:30:00 2023-11-19 10:30:00 Analytical Engineer Visit 2, [facility] Obi-Angelo Reidma 2, [facility] 1.2840.114 350.1.13.10 4.2.7.2.686 [id number] [facility] 2023-11-19 09:40:00 2023-11-19 10:03:53 Outpatient R OBI-FRANKLIN , JESS [facility] [id number] 2023-11-19 09:40:00 2023-11-19 10:03:53 Office [facility] [facility] 1.20.114 350.1.13.10 4.2.7.2.686 [id number] [facility] 2023-11-15 00:00:00 2023-11-18 18:57:29 Refill Obi[place] [facility] 1.20.114 350.1.13.10 4.2.7.2.686 [id number] [facility] 2023-11-16 00:00:00 2023-11-18 18:53:00 [facility] [facility] 1.2.840.114 350.1.13.10 4.2.7.2.686 [id number] [facility] [facility]-18 05:34:00 2023-11-18 13:08:00 Emergency KELLY CUEVAS, [facility] ERT [id number] [facility] 2023-11-18 05:34:00 2023-11-18 13:08:00 Emergency Caro Bauer Robert Lee [facility] 1.2840.114 350.1.13.10 4.2.7.2.686 [id number] 084 [id number] [facility] 2023-11-08 10:16:00 2023-11-08 16:16:00 Emergency X TIFF ISABEL, [facility] ERT [id number] [facility] 2023-11-08 10:16:00 2023-11-08 16:16:00 Emergency Tiff Isabel [facility] 1.2840.114 350.1.13.10 4.2.7.2.686 [id number] 084 [id number] [facility] 2023-10-16 00:00:00 2023-10-19 05:44:04 Refill Obi-Franklin , [facility] BUILDING 1.2840.114 350.1.13.10 4.2.7.2.686 [id number] 044 [id number] [facility] 2023-10-15 00:00:00 2023-10-16 10:48:03 Refill Obi-Franklin , [facility] BUILDING 1.2.840.114 350.1.13.10 4.2.7.2.686 [id number] 044 [id number] [facility] 2023 09:40:00 2023 09:40:00 Outpatient R OBI-FRANKLIN , JESS OBI-FRANKLIN , JESS [facility] [id number] [facility] 2023-10-01 00:00:00 2023-10-03 15:28:49 [facility] 1.2.840.114 350.1.13.10 4.2.7.2.686 [id number] 044 [id number] [facility] 2023-09-12 00:00:00 2023-09-13 13:09:32 Refill Obi-Franklin [facility] BUILDING 1.2.840.114 350.1.13.10 4.2.7.2.686 [id number] 044 [id number] [facility] 2023-09-05 10:40:00 2023-09-05 10:40:00 Outpatient R OBI-FRANKLIN , JESS OBI-FRANKLIN , JESS [facility] [id number] [facility] 2023-08-13 14:40:00 2023-08-13 14:40:00 Outpatient R OBI-FRANKLIN , JESS OBI-FRANKLIN , JESS [facility] [id number] [facility] 2023-08-06 14:30:00 2023-08-06 15:25:53 Analytical Engineer Visit 2, Adc Lab [facility] 1.2.840.114 350.1.13.10 4.2.7.2.686 [id number] [facility] 2023-08-06 14:30:00 2023-08-06 14:30:00 Outpatient R OBI-FRANKLIN [facility]ANKLIN , [facility] [id number] [facility] 2023-08-06 13:40:00 2023-08-06 14:29:31 [facility] 1.2.840.114 350.1.13.10 4.2.7.2.686 [id number] 044 [id number] [facility] 2023-08-06 08:40:00 2023-08-06 08:40:00 Outpatient R OBI-FRANKLIN JESS [facility]BI[facility]FRANKLIN , [facility] [id number] [facility] 2023-07-31 00:00:00 2023-08-01 12:29:54 Telephone Konrad Ordoñez [facility] 1.2.840.114 350.1.13.10 4.2.7.2.686 [id number] 044 [id number] [facility] 2023-07-31 00:00:00 2023-07-31 18:10:27 [facility] 1.2.840.114 350.1.13.10 4.2.7.2.686 [id number] 044 [id number] [facility] 2023-07-30 00:00:00 2023-07-31 09:10:12 Patient Secure Msg Obi-Franklin Jess [facility] BUILDING 1.2.840.114 350.1.13.10 4.2.7.2.686 [id number] 044 [id number] [facility] 2023-07-25 00:00:00 2023-07-25 09:15:22 Refill Obi-Franklin [facility] 1.2.840.114 350.1.13.10 4.2.7.2.686 [id number] 044 [id number] [facility] 2023-05-29 00:00:00 2023-06-30 18:07:42 Patient Secure Msg Obi-Franklin [facility] 1.2.840.114 350.1.13.10 4.2.7.2.686 [id number] 044 [id number] [facility] 2023-06-21 11:31:00 2023-06-21 12:29:00 Emergency X BONITA TRIVEDI [facility] ERT [id number] [facility] 2023-06-21 11:31:00 2023-06-21 12:29:[address] [facility] 1.2.840.114 350.1.13.10 4.2.7.2.686 [id number] 084 [id number] [facility] 2023-06-18 08:40:00 2023-06-18 08:40:00 Outpatient R OBI-FRANKLIN , JESS OBI-FRANKLIN , [facility] [id number] [facility] 2023-06-12 00:00:00 2023-06-12 00:00:00 Patient Secure Msg Obi-Franklin [facility] 1.2.840.114 350.1.13.10 4.2.7.2.686 [id number] 044 [id number] [facility] 2023-06-06 13:00:00 2023-06-06 13:00:00 Outpatient R OBI-FRANKLIN , JESS OBI-FRANKLIN , [facility] [id number] [facility] 2023-05-29 00:00:00 2023-05-29 00:00:00 [facility] 1.2.840.114 350.1.13.10 4.2.7.2.686 [id number] 044 [id number] [facility] 2023-04-25 15:00:00 2023-04-25 15:00:00 Outpatient R OBI-FRANKLIN , JESS OBI-FRANKLIN , [facility] [id number] [facility] 2023-04-23 00:00:00 2023-04-23 00:00:00 Refill Obi-Franklin [facility] BUILDING 1.2.840.114 350.1.13.10 4.2.7.2.686 [id number] 044 [id number] [facility] 2023-04-11 00:00:00 2023-04-11 00:00:00 [facility] 1.2.840.114 350.1.13.10 4.2.7.2.686 [id number] 044 [id number] [facility] 2023-04-05 00:00:00 2023-04-05 00:00:00 Telephone Jeimy [facility] BUILDING 1.2.840.114 350.1.13.10 4.2.7.2.686 [id number] 044 [id number] [facility] 2023-04-03 00:00:00 2023-04-03 00:00:00 Telephone Carlos Ibrahim [facility] BUILDING 1.2.840.114 350.1.13.10 4.2.7.2.686 [id number] 044 [id number] [facility] 2023-04-03 00:00:00 2023-04-03 00:00:00 Patient Secure Msg Obi[facility]Franklin , [facility] 1.2.840.114 350.1.13.10 4.2.7.2.686 [id number] 044 [id number] [facility] 2023-04-01 00:00:00 2023-04-01 00:00:00 Refill Shalondawo Jess [facility] BUILDING 1.2.840.114 350.1.13.10 4.2.7.2.686 [id number] 044 [id number] [facility] 2023-03-02 00:00:00 2023-03-02 00:00:00 Refill Shalondachaya [facility] BUILDING 1.2.840.114 350.1.13.10 4.2.7.2.686 [id number] 044 [id number] [facility] 2023-02-19 00:00:00 2023-02-19 00:00:00 Refill Sahlondawo [facility] BUILDING 1.2.840.114 350.1.13.10 4.2.7.2.686 [id number] 044 [id number] [facility] 2023-01-26 00:00:00 2023-01-26 00:00:00 Patient Secure Msg Doctor Unassigned, [place] [facility] 1.2.840.114 350.1.13.10 4.2.7.2.686 [id number] 044 [id number] [facility] 2023-01-24 15:00:00 2023-01-24 15:25:03 Outpatient [facility] [id number] [facility] 2023-01-24 15:00:00 2023-01-24 15:25:03 Office Visit Obi-Franklin , [facility] 1.2.840.114 350.1.13.10 4.2.7.2.686 [id number] 044 [id number] [facility] 2023-01-16 00:00:00 2023-01-16 00:00:00 Refill ArunFranklin [facility] 1.2840.114 350.1.13.10 4.2.7.2.686 [id number] 044 [id number] [facility] 2023-01-15 00:00:00 2023-01-15 00:00:00 Orders Only Doctor Unassigned, [place] [facility] 1.2840.114 350.1.13.10 4.2.7.2.686 [id number] [id number] [facility] 2023-01-15 00:00:00 2023-01-15 00:00:00 Patient Secure Msg Doctor Unassigned, [place] [facility] 1.2840.114 350.1.13.10 4.2.7.2.686 [id number] 044 [id number] [facility] 2023-01-08 00:00:00 2023-01-08 00:00:00 Telephone [facility] 1.2840.114 350.1.13.10 4.2.7.2.686 [id number] 044 [id number] [facility] 2023-01-06 00:00:00 2023-01-06 00:00:00 Orders Only Doctor Unassigned, [place] [facility] 1.2840.114 350.1.13.10 4.2.7.2.686 [id number] [id number] [facility] 2023-01-05 00:00:00 2023-01-05 00:00:00 Telephone [facility] 1.2.840.114 350.1.13.10 4.2.7.2.686 [id number] 044 [id number] [facility] 2023-01-03 00:00:00 2023-01-03 00:00:00 [facility]phone [facility] 1.2.840.114 350.1.13.10 4.2.7.2.686 [id number] 044 [id number] [facility] 2023-01-01 00:00:00 2023-01-01 00:00:00 Patient Secure Msg Doctor Unassigned, [place] [facility] 1.2.840.114 350.1.13.10 4.2.7.2.686 [id number] 044 [id number] [facility] 2022-12-28 00:00:00 2022-12-28 00:00:00 Patient Secure Msg Jeimy [facility] BUILDING 1.2.840.114 350.1.13.10 4.2.7.2.686 [id number] 044 [id number] [facility] 2022-12-26 00:00:00 2022-12-26 00:00:00 Telephone Jeimy [facility] BUILDING 1.2.840.114 350.1.13.10 4.2.7.2.686 [id number] 044 [id number] [facility] 2022-12-25 14:45:00 2022-12-25 15:00:00 Analytical Engineer Visit 2, Adc Lab Jeimy [facility] BUILDING 1.2.840.114 350.1.13.10 4.2.7.2.686 [id number] [facility] 2022-12-25 14:00:00 2022-12-25 14:14:40 Outpatient R OBI-FRANKLIN , JESS OBI-FRANKLIN , JESS [facility] [id number] [facility] 2022-12-25 14:00:00 2022-12-25 14:14:40 Office Visit Obi-Jess Reid [facility] ..840.114 350.1.13.10 4.2.7.2.686 [id number] 044 [id number] [facility] 2022-12-19 10:00:00 2022-12-19 10:00:00 Outpatient R OBI-FRANKLIN , JESS OBI-FRANKLIN , JESS [facility] [id number] [facility] 2022-07-19 15:30:00 2022-07-19 15:30:00 Outpatient R KAMILA MILAN [facility] [id number] [facility] 2022-04-14 10:00:00 2022-04-14 10:00:00 Outpatient R [facility] [id number] [facility] 2022-01-20 13:00:00 2022-01-20 14:43:14 Outpatient R JACINTA VOSS [facility] [id number] [facility] 2022-01-20 13:00:00 2022-01-20 14:43:14 Office Visit Provider, Dylan-Meche Jade Brenda A [facility] JOINT MACHINE OPERATOR [facility] MATERNAL & CHILD [facility] .2.840.114 350.1.13.10 4.2.7.2.686 [id number] 107 [id number] [facility] 2022-01-16 10:45:00 2022-01-16 10:45:00 Outpatient MECHE SEGURA [facility] [id number] [facility] 2022-01-05 00:00:00 2022-01-05 00:00:00 Encounter 1.2.840.1 35491.1.1 3.104.2.7 .2.129214 1.2.840.114 350.1.13.10 4.2.7.2.696 [id number] [facility] 2022-01-03 00:00:00 2022-01-03 00:00:00 Orders Only Doctor Unassigned, [place] [facility] 1.2.840.114 350.1.13.10 4.2.7.2.686 [id number] [id number] [facility] 2021-12-29 00:00:00 2021-12-29 00:00:00 Patient Secure Meg Rodrick Pete [facility] JOINT MACHINE OPERATOR [facility] MATERNAL & CHILD [facility] 1.2840.114 350.1.13.10 4.2.7.2.686 [id number] [facility] 2021-12-22 07:45:00 2021-12-22 08:42:11 Outpatient R JACINTA VOSS [facility] [id number] [facility] 2021-12-22 07:45:00 2021-12-22 08:42:11 Routine Visit Provider, GiovannaRmchp Jacinta Parra [facility] JOINT MACHINE OPERATOR [facility] & CHILD [facility] 1.2840.114 350.1.13.10 4.2.7.2.686 [id number] 107 [id number] [facility] 2021-12-03 00:00:00 2021-12-03 00:00:00 Patient Secure Msg Doctor Unassigned, [place] [facility] 1.2840.114 350.1.13.10 4.2.7.2.686 [id number] 019 [id number] [facility] 2021-11-30 00:00:00 2021-11-30 00:00:00 Patient Secure Meg Rodrick Pete [facility] JOINT MACHINE OPERATOR [facility] MATERNAL & CHILD [facility] 1.2.840.114 350.1.13.10 4.2.7.2.686 [id number] [facility] 2021-11-26 03:26:00 2021-11-29 10:05:00 Inpatient P VANESSA LEYVA [facility] [id number] [facility] 2021-11-26 03:26:00 2021-11-29 10:05:00 Hospital Encounter Vanessa Leyva [facility] 1.2.840.114 350.1.13.10 4.2.7.2.686 [id number] 083 [id number] [facility] 2021-11-26 15:34:00 2021-11-27 08:48:00 Anesthesia Event Wilver Owens [facility] 1.2.840.114 350.1.13.10 4.2.7.2.686 [id number] 083 [id number] [facility] 2021-11-26 10:17:37 2021-11-26 10:17:37 Anesthesia Event Wilver Owens [facility] 1.2.840.114 350.1.13.10 4.2.7.2.686 [id number] 083 [id number] [facility] 2021-11-23 09:45:00 2021-11-23 10:25:58 Outpatient LOVE SANTA EMILY [facility] [id number] [facility] 2021-11-23 09:45:00 2021-11-23 10:25:58 Routine Visit Provider, GiovannaRmchp Rodrick Norton Emily J. [facility] JOINT MACHINE OPERATOR [facility] MATERNAL & CHILD [facility] 1.2.840.114 350.1.13.10 4.2.7.2.686 [id number] 107 [id number] [facility] 2021-11-11 09:45:00 2021-11-11 10:12:23 Routine Visit Rodrick Pete [facility] JOINT MACHINE OPERATOR [facility] MATERNAL & CHILD [facility] 1.2.840.114 350.1.13.10 4.2.7.2.686 [id number] 107 [id number] [facility] 2021-11-11 09:45:00 2021-11-11 10:12:23 Outpatient R RODRICK PETE [facility] [id number] [facility] 2021-11-11 00:00:00 2021-11-11 00:00:00 Patient Secure Msg Rodrick Pete [facility] JOINT MACHINE OPERATOR [facility] & CHILD [facility] 1.2.840.114 350.1.13.10 4.2.7.2.686 [id number] 107 [id number] [facility] 2021-11-09 00:00:00 2021-11-09 00:00:00 Telephone Rodrick Pete [facility] JOINT MACHINE OPERATOR [facility] & CHILD [facility] 1.20.114 350.1.13.10 4.2.7.2.686 [id number] 107 [id number] [facility] 2021-11-07 00:00:00 2021-11-07 00:00:00 Refill Rodrick Pete [facility] JOINT MACHINE OPERATOR [facility] & CHILD [facility] 1.2840.114 350.1.13.10 4.2.7.2.686 [id number] 107 [id number] [facility] 2021-10-27 17:35:00 2021-10-27 19:05:00 Outpatient X BRENDA VELÁSQUEZ [facility] [id number] [facility] 2021-10-27 17:35:00 2021-10-27 19:05:00 Emergency Brenda Velásquez K Paige [facility] 1.2840.114 350.1.13.10 4.2.7.2.686 [id number] [id number] [facility] 2021-10-27 12:45:00 2021-10-27 13:34:39 Outpatient R YANCI RODRICK [facility] [id number] [facility] 2021-10-27 12:45:00 2021-10-27 13:34:39 Routine Visit Yanci Rodrick Mosquera [facility] JOINT MACHINE OPERATOR [facility] & CHILD [facility] 1..114 350.1.13.10 4.2.7.2.686 [id number] 107 [id number] [facility] 2021-10-27 12:45:00 2021-10-27 12:45:00 Outpatient R KIKI PETECUAUHTEMOC [facility] [id number] [facility] 2021-10-27 00:00:00 2021-10-27 00:00:00 Orders Only Doctor Unassigned, [place] [facility] 1..114 350.1.13.10 4.2.7.2.686 [id number] [facility] 2021-10-26 00:00:00 2021-10-26 00:00:00 Abstract Kiki Petecuauhtemoc [facility] JOINT MACHINE OPERATOR [facility] & CHILD [facility] 1..114 350.1.13.10 4.2.7.2.686 [id number] 107 [id number] [facility] 2021-10-21 09:45:00 2021-10-21 10:30:00 Analytical Engineer Visit Ultrasound, Vinh Stone [facility] JOINT MACHINE OPERATOR [facility] & CHILD [facility] ..114 350.1.13.10 4.2.7.2.686 [id number] [facility] 2021-10-21 09:45:00 2021-10-21 09:45:00 Outpatient VINH JOY SANGEETA [facility] [id number] [facility] 2021-10-18 00:00:00 2021-10-18 00:00:00 Patient Secure Msg Doctor Unassigned, Bloxom [facility] JOINT MACHINE OPERATOR [facility] & CHILD [facility] 1.2.840.114 350.1.13.10 4.2.7.2.686 [id number] 107 [id number] [facility] 2021-10-18 00:00:00 2021-10-18 00:00:00 Telephone Rodrick Pete [facility] JOINT MACHINE OPERATOR [facility] & CHILD [facility] 1.2.840.114 350.1.13.10 4.2.7.2.686 [id number] 107 [id number] [facility] 2021-10-14 08:00:00 2021-10-14 08:34:31 Outpatient R RODRICK PETE [facility] [id number] [facility] 2021-10-14 08:00:00 2021-10-14 08:34:31 Routine Visit Rodrick Pete [facility] JOINT MACHINE OPERATOR [facility] CHILD [facility] 1..840.114 350.1.13.10 4.2.7.2.686 [id number] 107 [id number] [facility] 2021-09-29 10:45:00 2021-09-29 11:39:29 Outpatient R RODRICK PETE [facility] [id number] [facility] 2021-09-29 10:45:00 2021-09-29 11:39:29 Routine Visit Rodrick Pete [facility] JOINT MACHINE OPERATOR [facility] 1..840.114 350.1.13.10 4.2.7.2.686 [id number] 107 [id number] [facility] 2021-09-29 10:45:00 2021-09-29 10:45:00 Outpatient R RODRICK PETE [facility] [id number] [facility] 2021-09-16 00:00:00 2021-09-16 00:00:00 Patient Secure Msg Doctor Unassigned, [place] [facility] 1..114 350.1.13.10 4.2.7.2.686 [id number] [facility] 2021-09-16 00:00:00 2021-09-16 00:00:00 Telephone Rodrick Pete [facility] JOINT MACHINE OPERATOR [facility] & CHILD [facility] 1.0.114 350.1.13.10 4.2.7.2.686 [id number] 107 [id number] [facility] 2021-09-16 00:00:00 2021-09-16 00:00:00 Telephone Rodrick Pete [facility] JOINT MACHINE OPERATOR [facility] & CHILD [facility] 1.0.114 350.1.13.10 4.2.7.2.686 [id number] 107 [id number] [facility] 2021-09-15 10:45:00 2021-09-15 11:53:13 Outpatient R RODRICK PETE [facility] [id number] [facility] 2021-09-15 10:45:00 2021-09-15 11:53:13 Routine Visit Rodrick Pete [facility] JOINT MACHINE OPERATOR [facility] CHILD [facility] 1..114 350.1.13.10 4.2.7.2.686 [id number] 107 [id number] [facility] 2021-09-13 00:00:00 2021-09-13 00:00:00 Refill Rodrick Pete [facility] JOINT MACHINE OPERATOR [facility] CHILD [facility] 1..114 350.1.13.10 4.2.7.2.686 [id number] 107 [id number] [facility] 2021-08-23 08:45:00 2021-08-23 22:46:00 Outpatient X BRENDA VELÁSQUEZ [facility] [id number] [facility] 2021-08-23 08:45:00 2021-08-23 22:46:00 Emergency Martinez, Brenda Avery [facility] 1.84.114 350.1.13.10 4.2.7.2.686 [id number] [facility] 2021-08-18 10:30:00 2021-08-18 10:44:10 Outpatient R RODRICK PETE [facility] [id number] [facility] 2021-08-18 10:30:00 2021-08-18 10:44:10 Routine Visit Rodrick Pete [facility] JOINT MACHINE OPERATOR [facility] & CHILD [facility] 1.84.114 350.1.13.10 4.2.7.2.686 [id number] 107 [id number] [facility] 2021-08-11 00:00:00 2021-08-11 00:00:00 Patient Secure Msg Rodrick Pete [facility] JOINT MACHINE OPERATOR [facility] & CHILD [facility] 1.840.114 350.1.13.10 4.2.7.2.686 [id number] 107 [id number] [facility] 2021-08-11 00:00:00 2021-08-11 00:00:00 Refill Rodrick Pete [facility] JOINT MACHINE OPERATOR [facility] & CHILD [facility] 1.840.114 350.1.13.10 4.2.7.2.686 [id number] [facility] 2021-08-11 00:00:00 2021-08-11 00:00:00 Refill Rodrick Pete [facility] JOINT MACHINE OPERATOR [facility] CHILD [facility] 1.840.114 350.1.13.10 4.2.7.2.686 [id number] [facility] 2021-08-11 00:00:00 2021-08-11 00:00:00 Refill Rodrick Pete [facility] JOINT MACHINE OPERATOR [facility] & CHILD [facility] 1.2.840.114 350.1.13.10 4.2.7.2.686 [id number] [facility] 2021-08-02 00:00:00 2021-08-02 00:00:00 Abstract Rodrick Pete [facility] JOINT MACHINE OPERATOR [facility] CHILD [facility] 1.2840.114 350.1.13.10 4.2.7.2.686 [id number] [facility] 2021-08-01 00:00:00 2021-08-01 00:00:00 Patient Secure Msg Doctor Unassigned, [place] [facility] JOINT MACHINE OPERATOR [facility] CHILD [facility] 1..840.114 350.1.13.10 4.2.7.2.686 [id number] [facility] 2021-07-29 09:30:00 2021-07-29 10:45:00 Analytical Engineer Visit Ultrasound, GiovannaMfm Rodrick Pete Antonio F [facility]/GYN [facility] CHILD [facility] 1..840.114 350.1.13.10 4.2.7.2.686 [id number] [facility] 2021-07-29 09:30:00 2021-07-29 09:30:00 Outpatient P [facility] [id number] [facility] 2021-07-29 09:30:00 2021-07-29 09:30:00 Outpatient P MADDIE ROMEO [facility] [id number] [facility] 2021-07-29 08:00:00 2021-07-29 08:36:27 Analytical Engineer Visit Lab, Dylan-Rmchp Rodrick Pete [facility] JOINT MACHINE OPERATOR [facility] 1.840.114 350.1.13.10 4.2.7.2.686 [id number] [facility] 2021-07-23 00:00:00 2021-07-23 00:00:00 Patient Secure Msg Doctor Unassigned, [place] [facility] 1..114 350.1.13.10 4.2.7.2.686 [id number] [facility] 2021-07-21 09:00:00 2021-07-21 10:12:55 Outpatient R KIKI PETEDAMARIELSA [facility] [id number] [facility] 2021-07-21 09:00:00 2021-07-21 10:12:55 Routine Visit Pete, Rodrick [facility] JOINT MACHINE OPERATOR [facility] & [facility] 1..114 350.1.13.10 4.2.7.2.686 [id number] [facility] 2021-07-21 09:00:00 2021-07-21 10:12:55 Outpatient R KIKI PETEELSA [facility] [id number] [facility] 2021-07-21 09:00:00 2021-07-21 09:00:00 Outpatient KIKI DENNISELSA [facility] [id number] [facility] 2021-07-21 09:00:00 2021-07-21 09:00:00 Outpatient KIKI DENNISDAMARIESLA [facility] [id number] [facility] 2021-07-17 02:36:00 2021-07-17 06:54:00 Emergency X CARO BAUER [facility] ERT [id number] [facility] 2021-07-17 02:36:00 2021-07-17 06:54:00 Emergency Caro Bauer [facility] .840.114 350.1.13.10 4.2.7.2.686 [id number] [facility] 2021-07-12 00:00:00 2021-07-12 00:00:00 Telephone Marie Petelos Demetri [facility] JOINT MACHINE OPERATOR [facility] & CHILD [facility] 1.2.840.114 350.1.13.10 4.2.7.2.686 [id number] [facility] 2021-07-06 00:00:00 2021-07-06 00:00:00 Telephone Rodrick Pete [facility] JOINT MACHINE OPERATOR [facility] CHILD [facility] 1.2.840.114 350.1.13.10 4.2.7.2.686 [id number] [facility] 2021-06-28 01:26:00 2021-06-29 10:10:00 Outpatient X BRENDA VELÁSQUEZ [facility] [id number] [facility] 2021-06-28 01:26:00 2021-06-29 10:10:00 Emergency Alayna Bear S Brenda Velásquez [facility] 1.2.840.114 350.1.13.10 4.2.7.2.686 [id number] [facility] 2021-06-27 20:49:00 2021-06-27 20:59:00 Emergency X [facility] ERT [id number] [facility] 2021-06-27 20:49:00 2021-06-27 20:59:[address] [facility] 1.2.840.114 350.1.13.10 4.2.7.2.686 [id number] [facility] 2021-06-24 00:00:00 2021-06-24 00:00:00 Patient Secure Msg Kiki Petecuauhtemoc Mosquera [facility] JOINT MACHINE OPERATOR [facility] & CHILD [facility] 1.2.840.114 350.1.13.10 4.2.7.2.686 [id number] [facility] 2021-06-24 00:00:00 2021-06-24 00:00:00 Telephone Rodrick Pete [facility] JOINT MACHINE OPERATOR [facility] MATERNAL & CHILD [facility] 1.84.114 350.1.13.10 4.2.7.2.686 [id number] [facility] 2021-06-23 14:00:00 2021-06-23 15:33:45 Outpatient R RODRICK PETE [facility] [id number] [facility] 2021-06-23 14:00:00 2021-06-23 15:33:45 Initial Visit Rodrick Pete Demetri [facility] JOINT MACHINE OPERATOR [facility] & CHILD [facility] 1.840.114 350.1.13.10 4.2.7.2.686 [id number] 107 [id number] [facility] 2021-06-23 14:00:00 2021-06-23 15:33:45 Outpatient R RODRICK PETE [facility] [id number] [facility] 2021-06-23 14:00:00 2021-06-23 15:33:45 Outpatient R KIKI PETEELSA [facility] [id number] [facility] 2021-06-23 00:00:00 2021-06-23 00:00:00 Orders Only Doctor Unassigned, [place] [facility] 1..114 350.1.13.10 4.2.7.2.686 [id number] [facility] 2021-06-22 08:04:00 2021-06-22 13:00:00 Emergency X ANGUS DWYER [facility] [id number] [facility] 2021-06-22 08:04:00 2021-06-22 13:00:[address] [facility] 1.84.114 350.1.13.10 4.2.7.2.686 [id number] [facility] 2021-06-21 22:18:00 2021-06-21 23:26:[address] [facility] 1.2.840.114 350.1.13.10 4.2.7.2.686 [id number] [id number] [facility] 2021-06-21 22:18:00 2021-06-21 23:26:00 Emergency X CARO BAUER [facility] ERT [id number] [facility] 2021-06-21 22:18:00 2021-06-21 23:26:00 Emergency X CARO BAUER [facility] ERT [id number] [facility] 2021-06-11 12:44:00 2021-06-14 18:06:00 Inpatient X JOSE DE JESUS MEDINA [facility] [id number] [facility] 2021-06-11 12:44:00 2021-06-14 18:06:00 Hospital Encounter Abdullahi Gomez Christopher Adum, Vivian L Lam, Vien [facility] 1.2.840.114 350.1.13.10 4.2.7.2.686 [id number] [facility] 2021-05-30 23:49:00 2021-06-03 14:41:00 Hospital Encounter Abdullahi Gomez Shannon M [facility] 1.2.840.114 350.1.13.10 4.2.7.2.686 [id number] [facility] 2021-05-30 23:49:00 2021-06-03 14:41:00 Inpatient X EDITH TERRY SHANNON [facility] [id number] [facility] Results Test Description Test Time Test Comments Results Result Co mments Source [id number] 16:19:00* Test Item Value Reference Range Interpretation Comme nts POCT PREG (test code = 1605) Negative On board controls acceptable with C Line (test code = 3574) Yes POCT PREG LOT # (test code = 3575) [id number] POCT PREG TEST DATE ( test code = 3576) 05/27/2024 [facility] [id number] 10:32:00* Test Item Value Reference Range Interpretation Comme nts POCT PREG (test code = 1605) Negative On board controls acceptable with C Line (test code = 3574) Yes POCT PREG LOT # (test code = 3575) [id number] POCT PREG TEST DATE ( test code = 3576) 2024-11-23 Lab Interpretation (test cod e = 21611-6) Normal [facility] [id number] 16:13:04* Test Item Value Reference Range Interpretation Comme [facility] Case Report (test code = 3376261122) Surgical Pathology ?Case: [id number] ? Authorizing Provider: ?Yisel Hart MD ?Collected: ? 12/24/2023 1057 ?Ordering Location: ? ? GI Endoscopy OR Department Received: ?12/24/2023 1148 ?Pathologist: ? Brendon Dawson MD PhD ?Specimen: ? ?STOMACH, 1. gastric biopsy ? Final Diagnosis (test code = 6522629169) c6ufjLJhSLPdc7baEKAisCBxW zEwMzNcZnRuYmpcdWMxIHtccn OqSJpigKvyAAU7FUBfRA6vsMo uzPq6eTkaJOEphqJ1gQIhDQte k3arKST2v5llmiwcOJGvUGasY a0jfQRzfSchXiQpNDLgRBr3nI 07SOTydT2plBPiYDl1TNTkdKD xzcPuKvUwPUMdcSWgaUH8TUQf ID6xmshhHTbbKQunLGCjxoR8L QGkeBChF2AdDDKlYL2yalrrUO Y9NNcoULZcFIE0DfUhNCVds2M pzts5CoFduFVdWVllxCLcpzjo qrMaEYEipdKUShFIOV3URJGRG XEXJW2OV8l1JPCbfvbthVH3YP PcLFkDP7MQVJHoGMKPV0PVHOw NHMaiBi4wBOIZQO1WZ6oWI4RX DXPNQZ2UCPkcVDQxEETDPnNVM 2CDWclRAJLBCgQDVrJYA8YJVz ZBLT3JCPIBLZTPSDUdVXCHPpM JRklFRFxwYXIgLSBOTyBILiBQ WUxPUkktTElLRSBPUkdBTklTT VMgSURFTlRJRklFRFxwYXJccG EkQGjmQFN8l3sazEFkPNHavCX uLaGyGDYrDXYxy1prDJGkkGHl ZzEwMzNcZnRuYmpcdWMxXGRlZ nDpk4wil038sETom6rsXDHdRx E3zUThBSTzxNieqom9eXrkElZ gVYLub4kacwAvQsSvTTPdENVn LEPoeAGnV931YPYxVNtdt5yvr 3FsVWIhdPHac2H6ZJYZGRxhRc UlT704e6ljm9vnjvDjdGQ3JWJ xPHR7MZpusvXrzvL0JCiscQBh DgF2BJskkqBjJPtnlaOuytXfM yz9GPAzC325WPN8mHuoa5yeHA A2RTEsPJOyHkniQi1tkNCoF66 8GQDgJUXERAClsIk9OWAsuiEl cjYinYKOu231D604b4vhXTSxu fEfzAuWdadfj2myI610XUIldX NqwwBxBfHvZIMudAXpcIV9PLK sAW7eclnjUTqdQAuvNEMwbwE0 QMZggGFeY3SuGUBeZG8vheutW VU1JTubBBQhZPQ5OqQdWIZlb5 Dmfmb4TnTtlp4mzd00TCI7c5F dmMrcTMN9OBN8MlMyQf6wgWOm WGJdNC6vQwEbdBAvRBMdol52c GzlUHvnqyAugD6lNbKmNCNoiM CsPAMvJN9qhZGdQRXnjC2gwrb jXHBnYnJkcmhlYWRccGdicmRy Mt7qtZsoONM3LKifL8wohQ7cD kL1KXiqC1gteW4qBCf0QFtmuV X3THLjgB4cGD1hhogsz2ozSTk aZUpbPWTnbkR5uuJ4KKDkrVUs T3JugU3qYETcJD5thcixt3jwS TL1ZLxiGREmIVG1RoMcZGHdy4 Qbzad6EaAzy4CreVQzQWeuB44 cc747FKTrrkTbV6wtcWUglaqv gPJwflmtKEnltmN2GJKyWCKtI WluXGYxXGZzMjBcbGFuZzEwMz NcaGljaFxmMVxkYmNoXGYxXGx fU1hnHhLlO7KzPJOcEwRcdXYc POkvxRF5KVAdZMZju04xrKu1C NOyyuzdh0NkKDJagEOuvXXbyO 4bicKwk1ybXWVyCUIoTMXbQ5B jFTW6dSArRVTqgYBaiQN6ZC4u roCgND3zIORdYyudwkPhvVAfx tDqIXYqEBecp2njWO2jBQHyyM hnaB4eyBY1CXLuh8rqnEJvmDD tp6haq7WuroQjIIxxBWGwQSbn LJEqCSFyBI1wYJGmnXQcfhRok 1F9VdaxsKBahcinZwymsgJ6MO ufmltyCOWoDPyqH1jiAvElKBX fjZaqCpjwn7NvIBApWIUoIjsf cGFyfX0= Clinical Information (test code = 3485450569) Lanre Bales is a 28 year old femaleHematemesis with nausea [K92.0]Coffee ground emesis [K92.0]Abdominal pain, epigastric [R10.13]1. gastric biopsy eval H pylori Gross Description (test code = 5143887025) t2cohUMcQWGowFYKWWP5JSRbZ Y0diHkewZw9ySesJKNcneO0rK ObXEkih1fjYWV7g7adlwNTJla mSPZqCW8lBEppPJFxAZ3kPnAa XGRlZmYxXHBhcGVydzEyMjQwX PHmyEQvmBP3RARzVU9fjaveEV yuARmxSLLarjR7IEGlhAIqS2U pJOLaJW4zyorvEPB0AINSKjow Jr7ytLUgwSwrBfXxSuEaEJNyY EFkSHAua3ppmdEJzedgwBl7jW 8HPBDsM7UqRD0Ch0doKNVkkEZ kALP4USzyi7bvPBtnMQY5GHEo DNZqMXKmXT8GSnLdOYA1JUm2N WUoHtI2QTi7FJDMIOYvYOE8QJ R4TtR5PFm9FLSdEG0sQZjakIM yZIugUblsQXaaS906HLdsPLNo J1QdD2ZmXBenAgPdXQloBPRrH IHiTJpkUIRrO7JUIWVbERZ8BB S3APNqXNe6DWk5KM6ASvNsGYC hHjy6RkA9RYKaJOw5BWebKU2K EGThEMO6BJorFiWtOQFxEQKzT Tv3LEUoECwtaaRlGSvjOxuoOE oeU94xrGEkCZKMCqskaAXctcy mczIwIFNQRUNJTUVOIEFcbHRy E1jhMxFrImqnBSEtSMzirOIlU CANClxwbGFpblxsdHJjaFxmcz LuVZDbmZEAAVJ1BX6lZYVNZxf iuLGdVGFmNNsLdKDtcR6nxfET IBaaFRIxU6SuejCoQTiaUQOic z4ydGoaBIjgTcGvhBMbAKrnyX bbdDhzMYLfxSdpzqMbW1L9ngK jYS5gEMHSFUHueA8pUZUbJOKm y0UsrBTdmXtqA5NwwWCaXjVxn F5zz9khO4X5ZCdMPFDokcPrD2 5uy3mtoLGld4GcYwL0GU7fuZb uscRuhpCqX3NeQGMjl50cnHB7 pGTosZCgFlAqA18nvdRfSVegA gGsEZ70ACKkIFywTMC7HSB7SV TqkQBfi7dflamiBV11WUquSX2 3XSyiDA2aRYGfUMbyPVJlH6Pr J6Z5JHqnRWDpUOWlsSLuwS3bp jUvmvHigCo6HDEmVWM0fRRqjQ xmQLEpXxhczQN6WSMlKbYrtyL ud6NhvZt1uXZxTQiwQQOysZ1p zD4uLUPoBGTixjISZijkVRAqF Krmz2KnETrnuVbnELRfUjWdCW xVxLlpNRYOU6vsiISeSCxwDKT HSDsKM7KTFZ0CUTQfnERLMQV6 UK6aXVvaZKWxU2SaM1JjuoQ5k 6rbaGibu8QqiNXsHD4vmFJbZX 3VNRLnziZqUIw6 Disclaimer (test code = 4555206221) c7wjoQQuCXGgt6hfXXEkfYLtY zEwMzNcZnRuYmpcdWMxIHtccn VgVGldq4QdZ9WtQsPaRBvnwxZ yEFXbFwhrvlsbOGHuQTY0jzTw BHJhQPpiNHRiFBqgPb9wiIGml BrrEhFlWBUoa2xrwdUBHLphJv BlO194IPTuITjbr4hez7UkONP mcCGnt5D7SLZBbxcleHa1gSgw D19wx9E9YvagM5ibXYSzLQEdB 1LmEA4lQWMhZec2CHK8RPB7FA DcJVXdI9PaQT7vTBEneICxIYd 9z3bweKgaALVjDPA7e2snXSmy kfEaLI1cuh9abVn2z8dhfrCrH NDeTRRakIUWYLLoJ8CzdIlbEu 9feMo2gWlgJekbHBC9Wnv6RQ7 und49awe9hIvpJIIhjpckYsM7 IQzuUSSkzxwmPIy6PQrkVESga TF4PVAimNAbU8KeTXVuZP7aac s9HMH7WRbeTHYlXhY2JXVdvYY yQLUawXtcFMrto772ZUT5HsTa BE7fJ4Ndr7W5bF7ndESoBNDhy CIkNkWvRGWsma9mfYIxAFwpt4 UgZXX3orO8bLDroEOgRMPqKN1 1Xymbv2BnXrghp9WrX17wxLF1 PMxhv6jzCC9aQjI7duFqGSdok 0xqyQ1uRxC9VKxoGU8wYE1yZD ElsZ1pjcipPBUmFeVlymcjDXC iwOenltSsZl6vsWxrLBR6UIae J9ebgG1lXoC4OIrpL5mflW9aC Qv3BGdtzWC0ICYbyF1aUY9oev yjt5aqJDwhLSdwWHLenrQ0ouZ 9MSEjtAGqJ8GluE4sYNQgAJ0o aadrr8wfDEQ4QPmuXTLpKQY1S aKfFQLbc0Jinhl4NaPsi7AcyN QaMFgaU09bc490KVKvcuOiK9f wbGFpblxwbGFpblxmMFxmczI0 XBQaueDqn6XlKCVkNWK9OFeyU MsnlXKrYFMefTgcd6dfU8WvhD FyXHBsYWluXGYxXGZzMjBcbGF uZzEwMzNcaGljaFxmMVxkYmNo OWIpECuwT4jpErFuE5RtEDLzR mEuqSSdD6ktYUrudqMcECReey YdhQS8SAcnR3a4ULWkcgTxkLp 7yoDsTdJkTOLoZQX5RLacdSUg DANme7DzxnwxcJBjXm1tfGRzQ FPxiS2aQACdIERqBGywNI2vwK f6FMOUhSXxbCBzWxULCXLjOY7 6ujDnWLMZhneme1Y6CCeyIBMu t8GaiBHzW7soj5IhCBRcy93kS V2zo0N8e1qfWBT6JD8lq1VkGX HwaJKtkALmSHYxz7Aewxssg4Q uZYQgejXbz8DoADWbagIzpTKm MIDwxfXvhh3ifvMmOWYaGUOkR 3JurzcwoObudiGdFNWewk4udj TxPSD1UATEOFWtRKBvo3PqaY6 zsYQFDXD5vUBnxx8ntxOXtEUg EVPyfm31ZVReOK5wS2meIZWtN DQsepQmlDMwy6CiQPMcsHD8nW TlVS7FMcGIl98lMKYaGBGKeiS hNKYrkAcvyVX4qkF9cB0vNNvY REEpLlx+DQJrQOLVUTJrWB8ul jVby8IdfcFzfPolKFLpnVXid6 ScaPJrz5MlhOrut9BhwCAefBS yAA3mAIUdwwplKDUuAHQOVrYG ZMRqmdZ2o3TiKXMdEQPaUCT6g Qawesj3PSBakR4gGCOfQ0eikr voIMmtVTHwr1DumC0mlGTXeMJ bp7BwoYNdfRXRgJJuKF3wrqWa OCpGTUuIGBA4tjUxDCQho1EoX GlcT0zmS05lxPgpkVa0pHZ0LZ T5vU3oKvv+IFxwYXJccGFyIEF laIJcpDZlMFLvfHpmlaEdL4Lc pkAwiX5kbGPtevUdQO3wRH8nA 8U4zZStTLLeirXqm5tuWZbnhp TeOtSfgbIzTFYhCQksBBIkr9R yQNwrYPD9CDmhbbGajlLafWYd aqqkDJJGOBLJeXCvpUYtNWH5C NykorNtqbXcRD7vlL9xzSgmhQ 4ytICsaNG5vdefMGFhDZBqeWq vUJXzJJ3qwQuoyS6bFwAsVjRo HJayFM1uOWUiS3xciHEcWDUoC SPwH1qgBaRxbH7dhTtkWIqrLq JcZnMyMFxwYXJccGFyXHBsYWl uXGYxXGZzMjBcbGFuZzEwMzNc aGljaFxmMVxkYmNoXGYxXGxvY 4koSnOyH8XeSRXyNtKizPCyW7 izKBkwEHI0FANvSI7vkZOpBL2 8oPMzj2wvBQcggIoqlc6wJ46q aSRbQRjsuKnvEKVrw36xq3PlD RAaurTdhd9aYQDboiY1mH7mDG ZjrIdzVPVdlNKvTKOwx5MhMQr naXRpemVkIGdsYXNzIHNsaWRl ssQ5xgItltVozkZuYCNepKhjM IXga0IdMEIgBRifk1Zdjk5eaU RzTYMrazEHtVcyuOWysU1tB7T dBOCnUFDggh5eUNBcmQ0tDOky r8IjaahhWBPyIMKvPNGpmlYyf a5yUMNgbINDFH1QOIdycBJtm0 GamzDhN9dYYNR3ZOTiFtCzAgl vOTJllIRpmQMcJBOzhk68OXAj fC8ugOjjBFRsgR6kkM5vlIszq L3aDfOnTbMoTMmnWC4vCGSjZ8 lynRQgLRDoOXZoP7qcJwSfkN7 jaFxmMVxjZjJcZnMyMFxwYXJ9 fQ== Embedded Images (test code = 8701595337) [facility] [id number] 16:40:41EXAM: US OVARY TORSION HISTORY: 28 years-old Female; Provided indication: eval for torsion; pelvicpain; bilateral 5.1cm cysts seen on CT . LMP = 4Pregnancy test = Negative. TECHNIQUE: Transabdominal and transvaginal ultrasound imaging and colorDoppler evaluation of the pelvis was performed. Spectral Doppler evaluationof the ovaries was performed. Clinical Immunologist images were obtained for therecord. COMPARISON: Same [...] arevisualized. Normal flow is seen on color Doppler.[facility] W [id number] 14:33:00Indication: Nausea/vomiting ? Comparison: None RL: 4209 [...] soft tissue: No acute osseous abnormality is noted.[facility] Test, [id number] 11:59:46* Test Item Value Reference Range Interpretation Comme nts PREG SERUM (test code = 8873700930) Negative RUMA (test code = RUMA) Less than 10 IU/L. ?If low titer or ectopic is suspected, resubmit specimen in 48-72 hours. [facility]Complete Metabolic [id number] 11:58:40* Test Item Value Reference Range Interpretation Comme nts NA (test code = 4693985378) 138 mmol/L 135-145 K (test code = 5393428931) 3.5 mmol/L 3.5-5.0 CL (test code = 4843230327) 106 mmol/L 98-108 CO2 TOTAL (test code = 0530200937) 23 mmol/L 23-31 AGAP (test code = 3944165246) 9 2-16 BUN (test code = 3604257170) 6 mg/dL 7-23 L GLUCOSE (test code = 4402486635) 122 mg/dL 70-110 H CREATININE (test code = 2160-0) 0.61 mg/dL 0.50-1.04 TOTAL BILI (test code = 6936040346) 0.6 mg/dL 0.1-1.1 CALCIUM (test code = 0763330229) 9.0 mg/dL 8.6-10.6 T PROTEIN (test code = 6015914233) 8.1 g/dL 6.3-8.2 ALBUMIN (test code = 5490426109) 4.4 g/dL 3.5-5.0 ALK PHOS (test code = 1640664674) 85 U/L 34-122 ALTv (test code = 1742-6) 20 U/L 5-35 AST(SGOT) (test code = 9169604987) 19 U/L 13-40 eGFR (test code = 10984-8) 125.8 mL/min/1.73m2 CKD-EPI eGFR (2020). Assuming creatinine has been stable day-to-day for at least three months, the eGFR indicates Category G1 (>= 90 mL/min/1.73 m2) Lab Interpretation (test code = 14779-9) Abnormal [facility] HospitalLip[facility], [id number] 11:58:19* Test Item Value Reference Range Interpretation Comme nts LIPASE (test code = 7626368616) 40 U/L 0-220 Lab Interpretation (test cod e = 62242-3) Normal [facility] HospitalCBC with Ohleuurbzzrp5036-99-08 11:41:57* Test Item Value Reference Range Interpretation [...] 32.8 g/dL 31.6-35.1 RDW-SD (test code = 05223-5) 51.3 fL 39.0-49.9 H RDW-CV (test code = 788-0) 13.7 % 12.0-15.5 PLT (test code = 777-3) 349 166-358 MPV (test code = 30568-3) 9.3 fL 9.5-12.9 L NRBC/100 WBC (test code = 1054177169) 0.0 0.0-10.0 NRBC x10^3 (test code = 1167203891) See_Comment [Automated messa ge] The system which generated this result transmitted reference range: 10*3/?L. The reference range was not used to interpret this result as normal/abnormal. GRAN MAT (NEUT) % (test code = 770-8) 73.3 % IMM GRAN % (test code = 1950173016) 0.40 % LYMPH % (test code = 736-9) 19.0 % MONO % (test code = 5905-5) 4.8 % EOS % (test code = 713-8) 2.0 % BASO % (test code = 706-2) 0.5 % GRAN MAT x10^3(ANC) (test code = 9680948138) 7.18 10*3/uL 1.88-7.09 H IMM GRAN x10^3 (test code = 6102457656) 0.04 10*3/uL 0.00-0.06 LYMPH x10^3 (test code = 731-0) 1.86 10*3/uL 1.32-3.29 MONO x10^3 (test code = 742-7) 0.47 10*3/uL 0.33-0.92 EOS x10^3 (test code = 711-2) 0.20 10*3/uL 0.03-0.39 BASO x10^3 (test code = 704-7) 0.05 10*3/uL 0.01-0.07 Lab Interpretation (test code = 16900-6) [facility] (44780)2023-11-08 17:45:25* Test Item Value Reference Range Interpretation Comme nts NA (test code = 0858521695) 136 mmol/L 135-145 K (test code = 3992549666) 3.1 mmol/L 3.5-5.0 L CL (test code = 4786406545) 105 mmol/L 98-108 CO2 TOTAL (test code = 2230491996) 21 mmol/L 23-31 L AGAP (test code = 4872036674) 10 2-16 BUN (test code = 4782169472) 12 mg/dL 7-23 GLUCOSE (test code = 9718183803) 92 mg/dL 70-110 CREATININE (test code = 2160-0) 0.57 mg/dL 0.50-1.04 TOTAL BILI (test code = 9155322001) 0.6 mg/dL 0.1-1.1 CALCIUM (test code = 3137463196) 9.0 mg/dL 8.6-10.6 T PROTEIN (test code = 9429002770) 8.0 g/dL 6.3-8.2 ALBUMIN (test code = 5513321956) 4.3 g/dL 3.5-5.0 ALK PHOS (test code = 0443609989) 81 U/L 34-122 ALTv (test code = 1742-6) 17 U/L 5-35 AST(SGOT) (test code = 0207569686) 45 U/L 13-40 H eGFR (test code = 12272-6) 127.9 mL/min/1.73m2 CKD-EPI eGFR (2020). Assuming creatinine has been stable day-to-day for at least three months, the eGFR indicates Category G1 (>= 90 mL/min/1.73 m2) Lab Interpretation (test code = 31015-8) Abnormal [facility]24-[facility] 16:30:35* Test Item Value Reference Range Interpretation Comme nts LIPASE (test code = 7307947150) 53 U/L 0-220 Lab Interpretation (test cod e = 85128-9) Normal [facility]CB WITH [id number] 16:15:57* Test Item Value Reference Range Interpretation [...] 33.1 g/dL 31.6-35.1 RDW-SD (test code = 64162-5) 50.1 fL 39.0-49.9 H RDW-CV (test code = 788-0) 13.8 % 12.0-15.5 PLT (test code = 777-3) 471 166-358 H MPV (test code = 79402-8) 9.2 fL 9.5-12.9 L NRBC/100 WBC (test code = 9807095585) 0.0 0.0-10.0 NRBC x10^3 (test code = 8952212325) See_Comment [Automated messa ge] The system which generated this result transmitted reference range: 10*3/?L. The reference range was not used to interpret this result as normal/abnormal. GRAN MAT (NEUT) % (test code = 770-8) 77.8 % IMM GRAN % (test code = 4540203906) 0.30 % LYMPH % (test code = 736-9) 16.7 % MONO % (test code = 5905-5) 4.7 % EOS % (test code = 713-8) 0.2 % BASO % (test code = 706-2) 0.3 % GRAN MAT x10^3(ANC) (test code = 3603235202) 9.31 10*3/uL 1.88-7.09 H IMM GRAN x10^3 (test code = 2322539424) 0.04 10*3/uL 0.00-0.06 LYMPH x10^3 (test code = 731-0) 1.99 10*3/uL 1.32-3.29 MONO x10^3 (test code = 742-7) 0.56 10*3/uL 0.33-0.92 EOS x10^3 (test code = 711-2) 0.03-0.39 L BASO x10^3 (test code = 704-7) 0.03 10*3/uL 0.01-0.07 Lab Interpretation (test code = 07244-1) Abnormal [facility] [id number] 16:01:00* Test Item Value Reference Range Interpretation Comme nts POCT PREG (test code = 1605) Negative On board controls acceptable with C Line (test code = 3574) Yes POCT PREG LOT # (test code = 3575) [id number] POCT PREG TEST DATE ( test code = 3576) 11-28-24 Lab Interpretation (test cod e = 80079-1) Normal [facility] [id number] 16:30:00* Test Item Value Reference Range Interpretation Comme nts POCT PREG (test code = 1605) Negative On board controls acceptable with C Line (test code = 3574) Yes POCT PREG LOT # (test code = 3575) [id number] POCT PREG TEST DATE ( test code = 3576) 03/28/2024 Lab Interpretation (test cod e = 07850-0) Normal [facility] [id number] 20:18:00* Test Item Value Reference Range Interpretation Comme nts POCT PREG (test code = 1605) Negative On board controls acceptable with C Line (test code = 3574) Yes POCT PREG LOT # (test code = 3575) POCT PREG TEST DATE ( test code = 3576) [facility] [id number] 20:18:00* Test Item Value Reference Range Interpretation Comme nts POCT PREG (test code = 1605) Negative On board controls acceptable with C Line (test code = 3574) Yes POCT PREG LOT # (test code = 3575) POCT PREG TEST DATE ( test code = 3576) [facility] ROMEO STOUT - [id number] 04:42:10* Test Item Value Reference Range Interpretation Comme nts RPR (Qualitative) (test code = 63998-7) Nonreactive Nonreactive Lab Interpretation (test cod e = 07196-6) [facility] [id number] 17:49:35 * Test Item Value Reference Range Interpretation Comme nts HBsAg Semi-Quantitative (mesha t code = 5195-3) Negative Negative [facility] WITH [id number] 12:19:16* Test Item Value Reference Range Interpretation Comme nts HIV Semi-quantitative (test code = 45212-5) Negative Negative RUMA (test code = RUMA) Non-reactive for HIV-1 antigen and HIV-1/HIV-2 antibodies. ?No laboratory evidence of HIV infection. ?Repeat in 2-4 weeks if acute HIV infection is suspected. [facility]. METABOLIC PANEL (98191)2021-11-26 11:29:08* Test Item Value Reference Range Interpretation Comme nts NA (test code = 8436443157) 137 mmol/L 135-145 K (test code = 5333701030) 3.6 mmol/L 3.5-5 CL (test code = 4981593737) 105 mmol/L 98-108 CO2 TOTAL (test code = 2318623898) 21 mmol/L 23-31 L AGAP (test code = 2619489246) 2-16 BUN (test code = 4991439213) 4 mg/dL 7-23 L GLUCOSE (test code = 2034239928) 93 mg/dL 70-110 CREATININE (test code = 5960646562) 0.49 mg/dL 0.5-1.04 L TOTAL BILI (test code = 0674064831) 0.2 mg/dL 0.1-1.1 CALCIUM (test code = 6896937606) 9.0 mg/dL 8.6-10.6 T PROTEIN (test code = 6046900836) 6.9 g/dL 6.3-8.2 ALBUMIN (test code = 0965844333) 3.7 g/dL 3.5-5 ALK PHOS (test code = 4326391378) 169 U/L 34-122 H ALTv (test code = 1742-6) 15 U/L 5-35 AST(SGOT) (test code = 1779158548) 23 U/L 13-40 eGFR (test code = 1850177407) mL/min/1.73m2 RUMA (test code = RUMA) Association [...] imaging tests). Lab Interpretation (test code = 25476-0) [facility]normal [facility] [id number] 11:28:48* Test Item Value Reference Range Interpretation Comme nts URIC ACID (test code = 6918081376) 3.4 mg/dL 2.9-6 Lab Interpretation (test cod e = 25574-7) Normal [facility] [id number] 11:24:10* Test Item Value Reference Range Interpretation Comme nts LDH (test code = 8320513383) 216 U/L 120-246 Lab Interpretation (test cod e = 59760-0) Normal [facility] - ONCE [id number] 10:30:18 * Test Item Value Reference Range Interpretation Comme nts ABO & RH (test code = 20) O Positive Performed at [facility] Laboratory Services - [facility] [address] [place] [id number] Free: [phone] No. [id number] IAT (test code = 1185) Negative Performed at [facility] [[email or web address] Laboratory Services - [facility] Blood [address] [place] [id number] Free: [phone] No. [id number] [facility] with [id number] 09:46:38* Test Item Value Reference Range Interpretation [...] 34.9 g/dL 31.6-35.1 RDW-SD (test code = 39173-7) 40.9 fL 39-49.9 RDW-CV (test code = 788-0) 12.2 % 12-15.5 PLT (test code = 777-3) See_Comment [Automated messa ge] The system which generated this result transmitted reference range: 166 - 358 10*3/?L. The reference range was not used to interpret this result as normal/abnormal. MPV (test code = 81062-1) 9.9 fL 9.5-12.9 NRBC/100 WBC (test code = 4949898704) See_Comment [Automated me ssage] The system which generated this result transmitted reference range: 0.0 - 10.0 /100 WBCs. The reference range was not used to interpret this result as normal/abnormal. NRBC x10^3 (test code = 5619901677) See_Comment [Automated messa ge] The system which generated this result transmitted reference range: 10*3/?L. The reference range was not used to interpret this result as normal/abnormal. GRAN MAT (NEUT) % (test code = 770-8) 70.4 % IMM GRAN % (test code = 6813696943) 0.70 % LYMPH % (test code = 736-9) 20.1 % MONO % (test code = 5905-5) 6.0 % EOS % (test code = 713-8) 2.5 % BASO % (test code = 706-2) 0.3 % GRAN MAT x10^3(ANC) (test code = 5197356018) 8.92 10*3/uL 1.88-7.09 H IMM GRAN x10^3 (test code = 9215206197) 0.09 10*3/uL 0-0.06 H LYMPH x10^3 (test code = 731-0) 2.55 10*3/uL 1.32-3.29 MONO x10^3 (test code = 742-7) 0.76 10*3/uL 0.33-0.92 EOS x10^3 (test code = 711-2) 0.32 10*3/uL 0.03-0.39 BASO x10^3 (test code = 704-7) 0.04 10*3/uL 0.01-0.07 Lab Interpretation (test code = 66760-4) Abnormal [facility] URINALYSIS W SPECIFIC [id number] 14:56:00* Test Item Value Reference Range Interpretation [...] POCT U APPEAR (test code = 3267) [facility] URINALYSIS W SPECIFIC [id number] 14:56:00* Test Item Value Reference Range Interpretation [...] POCT U APPEAR (test code = 3267) [facility] URINALYSIS W SPECIFIC [id number] 14:58:00* Test Item Value Reference Range Interpretation [...] POCT U APPEAR (test code = 3267) [facility] URINALYSIS W SPECIFIC [id number] 14:58:00* Test Item Value Reference Range Interpretation [...] POCT U APPEAR (test code = 3267) [facility] URINALYSIS W SPECIFIC [id number] 14:58:00* Test Item Value Reference Range Interpretation [...] POCT U APPEAR (test code = 3267) [facility] URINALYSIS W SPECIFIC [id number] 14:58:00* Test Item Value Reference Range Interpretation [...] POCT U APPEAR (test code = 3267) [facility] URINALYSIS W SPECIFIC [id number] 14:58:00* Test Item Value Reference Range Interpretation [...] POCT U APPEAR (test code = 3267) [facility] URINALYSIS W SPECIFIC [id number] 18:21:00* Test Item Value Reference Range Interpretation [...] POCT U APPEAR (test code = 3267) [facility] History and Physical Notes Date/Time Note Provider Source 2024-01-29 09:03:32 Patient seen and examined in the preop/DSU area. No changes in history and physical from our note below. -OR today for laparoscopic cholecystectomy -NPO past midnight -Surgical consent signed Kiko Belcher MD 01/29/2024 9:03 AM PGY4, General Surgery WARE SOFTWARE VERIFICATION ENGINEER Associated attestation - Eva Bryan MD - 01/29/2024 10:25 AM FIRMWARE SOFTWARE VERIFICATION ENGINEER Attending Attestation: I personally evaluated and examined the patient on 01/29/[address] Belcher's interval note as written. I actively participated in the decision-making process. Please see the resident's note for additional details. Seen in ED for similar abdominal pain prior to surgery, otherwise has been doing well. Consent signed and in chart. Proceed with laparoscopic cholecystectomy. Eva Bryan M.D. 01/29/2024 10:24 Source Note - Eva Bryan MD - 01/07/2024 11:15 AM FIRMWARE SOFTWARE VERIFICATION ENGINEER Images from the original note were not included. GENERAL SURGERY CLINIC NOTE Reason for Visit / Chief Complaint: Abdominal pain, gallstones History of Present Illness: Lanre Bales is a 28 year old female with PMHx as below who presents for evaluation of abdominal pain and gallstones. She was seen at [facility] ED in 11/08/2023 for vomiting. Work [...] with nausea and vomiting and presented to [facility] on 01/01/2024. An US was obtained [...] lives with mother and child, FOB involved. Temple preference: Holiness. Has one cat, educated about diego litter [...] min Stress: No Stress Concern Present (12/19/2022) [employer] - Occupational Stress Questionnaire Feeling of Stress : Not at all Social Connections: Moderately Integrated (12/19/2022) Social Connection and Isolation Panel [NHANES] Frequency of Communication with Friends and Family: More than three times a week Frequency of Social Gatherings with Friends and Family: Twice a week Attends Temple Services: 1 to 4 times per year [...] othopnea, claudication, edema, coronary artery disease/history of NH Respiratory: Cough, sputum production, hemoptysis, wheezing, shortness [...] consent obtained. Eva Bryan M.D. 01/07/2024 14:58 [facility]
[2024-02-11 01:51] LABS: Absolute Eosinophils 0.2 K/uL (0-0.5); Absolute Lymphocytes (CBC) 3.1 K/uL (0.7-4.9); Absolute Monocytes 0.5 K/uL (0.1-1.3); Absolute Neutrophil 5.2 K/uL (1.8-8.0); Basophils % 0.4 % (0-1.3); Eosinophils % 2.2 % (0-4.4); Hematocrit 39.6 % (36.0-45.0); MCV 103.1 fL (80-100); MPV 7.1 fL (7.6-11.3); Monocytes % 5.7 % (3.3-12.3); Neutrophils % 57.7 % (41.7-73.7); Nucleated Red Blood Cells % 0.1 % (0-0); Platelets 396 thou/uL (152-406); RBC Red Blood Cell Count 3.84 M/uL (3.86-4.86)
[2024-02-11 02:03] LABS: Albumin 3.5 g/dL (3.4-5.0); Anion Gap 9.3 mEq/L (5.0-15.0); Bilirubin Total 0.4 mg/dL (0.2-1.0); Globulin 3.5 g/dL (2.3-3.5); Potassium 3.3 mEq/L (3.5-5.1)
[2024-02-11] MEDS ORDERED: ONDANSETRON 4 MG/2 ML VIAL ONE (02:41)
[2024-02-11] MEDS ORDERED: MORPHINE 4 MG/ML SYR ONE (02:42)
--- NOTE | 2024-02-11 03:40 | ER ---
Nurse's Notes [facility] Name: Robin Bernard Age: 28 yrs Sex: Female : 1995 Arrival Date: 02/11/2024 Time: 00:32 Bed 15 Private MD: Diagnosis: Chest pain, unspecified;Abdominal pain, unspecified Presentation: 02/10 01:04 Chief complaint: Patient states: right lower abdominal pain. Coronavirus screen: Client vc1 denies travel out of the [place] in the last 14 days. At this time, the client does not indicate any symptoms associated with coronavirus-19. Ebola Screen: Patient negative for fever greater than or equal to 101.5 degrees Fahrenheit, and additional compatible Ebola Virus Disease symptoms Patient denies exposure to infectious person. Patient denies travel to an Ebola-affected area in the 21 days before illness onset. No symptoms or risks identified at this time. Initial Sepsis Screen: Does the patient meet any 2 criteria? No. Patient's initial sepsis screen is negative. Does the patient have a suspected source of infection? No. Patient's initial sepsis screen is negative. Risk Assessment: Do you want to hurt yourself or someone else? Patient reports no desire to harm self or others. Onset of symptoms is unknown. 01:04 Method Of Arrival: Ambulatory vc1 01:04 Acuity: BOZENA 3 vc1 Triage Assessment: 01:11 General: Appears in no apparent distress. uncomfortable, obese, Behavior is calm, vc1 cooperative, appropriate for age. Pain: Complains of pain in right lower quadrant Pain does not radiate. Pain currently is 7 out of 10 on a pain scale. Quality of pain is described as sharp, Pain began suddenly, Is continuous. EENT: No deficits noted. No signs and/or symptoms were reported regarding the EENT system. Neuro: Level of Consciousness is awake, alert, obeys commands, Oriented to person, place, time, situation, Appropriate for age. Cardiovascular: Capillary refill < 3 seconds Patient's skin is warm and dry. Respiratory: Airway is patent Respiratory effort is even, unlabored, Respiratory pattern is regular, symmetrical. GI: Reports lower abdominal pain. : No deficits noted. No signs and/or symptoms were reported regarding the genitourinary system. Derm: Skin is intact, is healthy with good turgor, Skin is dry, Skin is normal, Skin temperature is warm. Musculoskeletal: Circulation, motion, and sensation intact. Range of motion: intact in all extremities. JUTE BAG CLIPPER: 01:10 LMP 02/05/2024, unknown vc1 Historical: - Allergies: 01:08 Reglan; vc1 - Home Meds: 01:08 Protonix 40 mg Oral tablet 1 tab daily [Active]; vc1 - PMHx: 01:08 gastritis; insomnia; Placenta Previa; vc1 - Immunization history:: Client reports having NOT received the Covid vaccine. Flu vaccine is not up to date. - Infectious Disease History:: Denies. - Social history:: Smoking status: Patient/guardian denies using tobacco, Stopped _ months ago 1. - Family history:: not pertinent. - Hospitalizations: : No recent hospitalization is reported. Screenin:10 [facility] ED Fall Risk Assessment (Adult) History of falling in the last 3 months, vc1 including since admission No falls in past 3 months (0 pts) Confusion or Disorientation No (0 pts) Intoxicated or Sedated No (0 pts) Impaired Gait No (0 pts) Mobility Assist Device Used No (0 pt) Altered Elimination No (0 pt) Score/Fall Risk Level 0 - 2 = Low Risk Oriented to surroundings, Maintained a safe environment, Educated pt \T\ family on fall prevention, incl call for assistance when getting out of bed. Abuse screen: Denies threats or abuse. Nutritional screening: No deficits noted. Tuberculosis screening: No symptoms or risk factors identified. Assessment: 01:10 General: Appears in no apparent distress. uncomfortable, Behavior is calm, cooperative. kj2 Pain: Complains of pain in abdomen and right lower quadrant Pain currently is 8 out of 10 on a pain scale. Neuro: Level of Consciousness is awake, alert, obeys commands, Oriented to person, place, time, situation. Cardiovascular: Patient's skin is warm and dry. Respiratory: Airway is patent Respiratory effort is unlabored. GI: Reports lower abdominal pain. : No signs and/or symptoms were reported regarding the genitourinary system. 02:10 Reassessment: Patient appears in no apparent distress at this time. Patient and/or kj2 family updated on plan of care and expected duration. Pain level reassessed. Patient is alert, oriented x 3, equal unlabored respirations, skin warm/dry/pink. 03:10 Reassessment: Patient appears in no apparent distress at this time. Patient and/or kj2 family updated on plan of care and expected duration. Pain level reassessed. Patient is alert, oriented x 3, equal unlabored respirations, skin warm/dry/pink. 03:56 Reassessment: Patient appears in no apparent distress at this time. Patient and/or kj2 family updated on plan of care and expected duration. Pain level reassessed. Patient is alert, oriented x 3, equal unlabored respirations, skin warm/dry/pink. Vital Signs: 01:04 BP 140 / 88; Pulse 97; Resp 18; Pulse Ox 100% ; vc1 01:36 BP 138 / 97; Pulse 75; Resp 18; Pulse Ox 99% on R/A; kj2 02:10 BP 128 / 75; Pulse 101; Resp 18; Pulse Ox 100% ; kj2 03:56 BP 126 / 74; Pulse 76; Resp 18; Pulse Ox 100% on R/A; kj2 ED Course: 00:36 Patient arrived in ED. gm2 00:38 Robert Wolf MD is Attending Physician. rn 01:00 Elenita Williamson RN is Primary Nurse. kj2 01:08 Triage completed. vc1 01:09 Arm band placed on right wrist. vc1 01:10 Patient has correct armband on for positive identification. Bed in low position. Call vc1 light in reach. Pulse ox on. NIBP on. 01:10 Provided Education on: CALL LIGHT. kj2 01:34 CBC with Diff Sent. vc1 01:35 CMP Sent. vc1 01:35 Lipase Sent. vc1 01:35 Inserted saline lock: 22 gauge in right antecubital area, using aseptic technique. vc1 Blood collected. Flushed with 10 mL NS. 02:18 CT Abd/Pelvis - IV Contrast Only In Process Unspecified. EDMS 02:20 CT Chest For PE Angio In Process Unspecified. EDMS 03:47 No provider procedures requiring assistance completed. kj2 03:53 IV discontinued, intact, bleeding controlled, No redness/swelling at site. kj2 Administered Medications: 02:48 Drug: morphine IVP or IV 4 mg IVP once over 4 mins Route: IVP; Infused Over: 4 mins; kj2 Site: right antecubital; 03:57 Follow up: Response: No adverse reaction kj2 02:48 Drug: Ondansetron IVP 4 mg IVP once; over 2 minutes Route: IVP; Site: right antecubital;kj2 03:57 Follow up: Response: No adverse reaction kj2 Medication: 01:11 VIS not applicable for this client. vc1 Outcome: 03:39 Discharge ordered by . rn 03:49 Discharged to home ambulatory, kj2 03:49 Condition: stable 03:51 Discharge instructions given to patient, Instructed on discharge instructions, follow kj2 up and referral plans. 04:04 Patient left the ED. kj2 Signatures: Dispatcher [employer] EDMS Robert Wolf MD MD rn Calcote, Vanessa, RN RN vc1 Bridget Valenzuela 2 Elenita Williamson RN RN kj2
--- NOTE | 2024-02-11 03:40 | EDPHYS ---
Physician Documentation [facility] Name: Robin Bernard Age: 28 yrs Sex: Female : 1995 Arrival Date: 02/11/2024 Time: 00:32 Bed 15 Private MD: ED Physician Robert Wolf HPI: 02/10 01:15 This 28 yrs old Black Female presents to ER via Ambulatory with complaints of Rt. side rn abd pain/ gallbladder removed 2 weeks ago, Pain. 01:15 The patient presents with abdominal pain Right lower chest. Onset: The symptoms/episode rn began/occurred 1 week(s) ago. The symptoms do not radiate. Associated signs and symptoms: Pertinent negatives: nausea and vomiting, blood in stools, fever. The symptoms are described as sharp, stabbing. Modifying factors: The symptoms are alleviated by nothing, the symptoms are aggravated by breathing deeply. 01:16 Severity of pain: At its worst the pain was mild in the emergency department the pain rn has improved. The patient has not experienced similar symptoms in the past. Patient reports had gallbladder removed 2 weeks ago at [facility]. Since then has been having right upper quadrant abdominal pain but started to feel right lower chest pain that is sharp and stabbing with deep inspiration more recently. Called her doctor and told to go to the emergency room for evaluation. No history of DVT or PE. No unilateral swelling or pain. No hemoptysis. 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 Flu vaccine is not up to date. - Infectious Disease History:: Denies. - Social history:: Smoking status: Patient/guardian denies using tobacco, Stopped _ months ago 1. - Family history:: not pertinent. - Hospitalizations: : No recent hospitalization is reported. ROS: 01:16 Constitutional: Negative for fever, chills, and weight loss, Cardiovascular: Positive rn for chest pain Respiratory: Positive for pleuritic chest pain on the right side with deep inspiration Abdomen/GI: Positive for right upper quadrant abdominal pain MS/Extremity: Negative for injury and deformity, Neuro: Negative for headache, weakness, numbness, tingling, and seizure, Exam: 01:16 Constitutional: This is a well developed, well nourished patient who is awake, alert, rn and in no acute distress. Cardiovascular: Regular rate and rhythm. No pulse deficits. Respiratory: No increased work of breathing, no retractions or nasal flaring. Abdomen/GI: Soft, mild right upper quadrant tenderness without guarding or rebound. No peritoneal signs. MS/ Extremity: Pulses equal, no cyanosis. Neuro: Awake and alert, GCS 15 Vital Signs: 01:04 BP 140 / 88; Pulse 97; Resp 18; Pulse Ox 100% ; vc1 01:36 BP 138 / 97; Pulse 75; Resp 18; Pulse Ox 99% on R/A; kj2 02:10 BP 128 / 75; Pulse 101; Resp 18; Pulse Ox 100% ; kj2 03:56 BP 126 / 74; Pulse 76; Resp 18; Pulse Ox 100% on R/A; kj2 MDM: 00:38 Medical Screening Exam initiated rn 03:38 Differential diagnosis: bowel obstruction, gastritis, gastroesophageal reflux disease, rn non-specific abd pain, pancreatitis, Peptic Ulcer Disease, Pulmonary embolism, atelectasis. Data reviewed: vital signs, nurses notes, lab test result(s), EKG, radiologic studies, and as a result, I will discharge patient. Counseling: I had a detailed discussion with the patient and/or guardian regarding the historical points, exam findings, and any diagnostic results supporting the discharge/admit diagnosis, lab results, radiology results, the need for outpatient follow up, to return to the emergency department if symptoms worsen or persist or if there are any questions or concerns that arise at home. Special discussion: Based on the patient's history, exam, and Dx evaluation, there is no indication for emergent intervention or inpatient Tx. It is understood by the patient/guardian that if the Sx's persist or worsen they need to return immediately for re-evaluation. Based on the patient's Hx, exam, and Dx evaluation, there is no indication for emergent surgery or inpatient Tx. It is understood by the patient/guardian that if the Sx's persist or worsen they need to return immediately for re-evaluation. I discussed with the patient/guardian in detail that at this point there is no indication for admission to the hospital. It is understood, however, that if the symptoms persist or worsen the patient needs to return immediately for re-evaluation. 02/10 01:02 Order name: CBC with Diff; Complete Time: 02:06 rn 02/10 01:02 Order name: CMP; Complete Time: 02:06 rn 02/10 01:02 Order name: Lipase; Complete Time: 02:06 rn 02/10 01:02 Order name: CT Abd/Pelvis - IV Contrast Only; Complete Time: 03:42 rn 02/10 01:02 Order name: CT Chest For PE Angio; Complete Time: 03:42 rn 02/10 01:02 Order name: IV Saline Lock; Complete Time: 01:34 rn 02/10 01:02 Order name: Labs collected and sent; Complete Time: 01:34 rn Administered Medications: 02:48 Drug: morphine IVP or IV 4 mg IVP once over 4 mins Route: IVP; Infused Over: 4 mins; kj2 Site: right antecubital; 03:57 Follow up: Response: No adverse reaction kj2 02:48 Drug: Ondansetron IVP 4 mg IVP once; over 2 minutes Route: IVP; Site: right antecubital;kj2 03:57 Follow up: Response: No adverse reaction kj2 Disposition Summary: 02/11/24 03:39 Discharge Ordered Notes: Location: Home rn Problem: new rn Symptoms: have improved rn Condition: Stable rn Diagnosis - Chest pain, unspecified rn - Abdominal pain, unspecified rn Followup: rn - With: Private Physician - When: As needed - Reason: Recheck today's complaints, Re-evaluation by your physician Discharge Instructions: - Discharge Summary Sheet rn - Abdominal Pain, Adult rn - Nonspecific Chest Pain, Adult rn Forms: - Medication Reconciliation Form rn - Antibiotic ornamental brick installer - Prescription Opioid Use rn - Patient Portal Instructions rn - Leadership Thank You Letter rn Signatures: Dispatcher [facility] Robert Figueroa MD MD rn Calcote, Vanessa, RN RN vc1 Elenita Williamson RN RN kj2 Corrections: (The following items were deleted from the chart) 01:03 01:03 CBC+H.LAB.BRZ ordered. EDMS EDMS 01:03 01:03 COMPREHENSIVE METABOLIC PANEL+C.LAB.BRZ ordered. EDMS EDMS 01:03 01:03 LIPASE+C.LAB.BRZ ordered. EDMS EDMS 01:03 01:03 Abdomen Pelvis W Con+CT.RAD.BRZ ordered. EDMS EDMS 01:03 01:03 Chest For PE Angio+CT.RAD.BRZ ordered. EDMS EDMS 01:03 01:03 IS+RC.RAD.BRZ ordered. EDMS EDMS
--- NOTE | 2024-02-11 03:41 | RAD REPORT ---
EXAM DESCRIPTION: CT ABDOMEN PELVIS WITH IV CONTRAST 02/11/2024 3:07 AM SYSTEMS APPLICATIONS PROGRAMMING LEAD CLINICAL HISTORY: 28 years, Female, RUQ abdominal pain, 2 weeks gallbladder post-op. COMPARISON: CT Abdomen pelvis and US Abdomen 01/01/2024. PROCEDURE: Contrast-enhanced images of the abdomen and pelvis were performed from the lung bases to the ischial tuberosities after the administration of IV contrast. In addition multiplanar reformats in the coronal and sagittal plane were obtained and reviewed. An individualized dose optimization technique, Automated Exposure Control, was utilized for the perfo rmed procedure. FINDINGS: Lung bases: Evaluation of the chest organs appear report. Liver: The liver demonstrates to be normal, no focal lesions identified. Gallbladder: Surgical clips within the gallbladder fossa corresponding to previous cholecystectomy. N o significant biliary duct dilatation. Adrenal glands: The adrenal glands demonstrate to be normal. Pancreas: The pancreas demonstrate to be normal. Spleen: The spleen demonstrate to be within normal limits. Kidneys: The kidneys demonstrate normal uptake of contrast media. There is no evidence for nephroli thiasis and/or hydronephrosis. GI: Grossly the unopacified stomach, small bowel and large bowel demonstrate to be within normal limi ts. No evidence for bowel dilatation and/or free air. The appendix is normal. The left-sided colon demonstrate to be decompressed with no gross abnormalities. : The urinary bladder demonstrate to be unremarkable. Genitalia: The uterus demonstrate to be within normal limits. There are normal adnexal structures. Abdominal aorta: The aorta demonstrate to be within normal limits. Retroperitoneum: There is no retroperitoneal lymphadenopathy. There is no evidence for ascites and/or abnormal fluid collections. Bones: The bony structures demonstrate to be within normal limits. No evidence for compression deform ity and/or significant skeletal lesions. Soft tissues: The soft tissues demonstrate to be unremarkable. IMPRESSION: Status post cholecystectomy. Otherwise unremarkable CT scan of the abdomen and pelvis with contrast. Electronically signed by: Wil Gregory MD 02/11/2024 03:32 AM SYSTEMS APPLICATIONS PROGRAMMING LEAD Due to temporary technical issues with the PACS/[employer] reporting system, reports are being nicola d by the in-house radiologist without review as a courtesy to ensure prompt reporting the interpreting radiologist is fully responsible for the content of the report. Transcribed Date/Time: 02/11/2024 3:41 AM
--- NOTE | 2024-02-11 03:41 | RAD REPORT ---
EXAM DESCRIPTION: CT CHEST ANGIOGRAPHY WITH IV CONTRAST 02/11/2024 3:08 AM ANIMAL STUNNER CLINICAL HISTORY: 28 years, Female, Right lower chest pain, rule out PE. COMPARISON: None. TECHNIQUE: Multiple transaxial tomograms of the chest were obtained from the lung apices through the lung bases after the administration of large bolus of IV contrast for complete opacification of the pulmonary arteries. Subsequent to 2-D and 3-D multiplanar reformats and maximum intensity projection images were generate d in the sagittal and coronal planes. An individualized dose optimization technique, Automated Exposure Control, was utilized for the perfo rmed procedure. Contrast: Intravenous contrast was administered. FINDINGS: CTA: Diagnostic quality: Adequate for assessment of the segmental pulmonary arteries. The pulmonary arteries are adequately opacified. No evidence of central or segmental pulmonary emboli or right heart strain. No acute finding in the thoracic aorta. CHEST: Neck base: Visualized thyroid gland and soft tissues are normal. No adenopathy. Lungs: The lung parenchyma demonstrate to be clear. No significant pulmonary nodules, masses and/or c onsolidations. Airways: The trachea mainstem bronchus demonstrate to be within normal limits. Pleura: No evidence for significant pleural effusions. The diaphragms are well positioned. There is n o evidence for pneumothorax. Mediastinum and hellen: There is no significant mediastinal and/or hilar lymphadenopathy. The axillary regions demonstrate to be clear. Heart: Normal size. No pericardial thickening or effusion. Vessels: Coronary: No significant coronary artery calcifications. Aorta: The thoracic aorta demonstrate to be within normal limits. No evidence for aneurysm an/or d issection. Other: There is no significant filling defects within the pulmonary arteries to suggest pulmonary embolus. Osseous structures: The thoracic spine demonstrate to be within normal limits. No evidence for compre ssion deformities and/or significant skeletal lesions. Musculoskeletal: No soft tissue and/or musculoskeletal abnormality. Visualized upper abdomen: Evaluation of the abdomen and pelvis will be given and separate report. IMPRESSION: No evidence of central or segmental pulmonary emboli or dissection. Otherwise unremarkable CT scan of the chest with contrast. Electronically signed by: Wil Gregory MD 02/11/2024 03:34 AM ANIMAL STUNNER Due to temporary technical issues with the PACS/[employer] reporting system, reports are being nicola d by the in-house radiologist without review as a courtesy to ensure prompt reporting the interpreting radiologist is fully responsible for the content of the report. Transcribed Date/Time: 02/11/2024 3:41 AM
[2024-02-11 04:29] VITALS: O2SAT 100
[2024-02-11 04:30] VITALS: BP 126/74
== END 2024-02-11 04:04 | disposition home or self-care (01) ==
LOC: ER 00:32
DX: R07.9 Chest pain, unspecified (principal); R10.31 Right lower quadrant pain; Z90.49 Acquired absence of other specified parts of digestive tract
CPT/HCPCS: 85025; 36415; 83690; 80053; 71275; 74177; 96375; 96374; 99284; Q9967; J2405

== ENCOUNTER 2024-02-23 02:26 | Emergency (ER) | payer OTHER ==
--- OUTSIDE RECORDS SUMMARY | 2024-02-23 02:34 | XMS REPORT | Continuity of Care Document ---
Author Name Unknown Address [address] [facility]. [address] [place] [address] [facility] [address] [facility] [address] [place] [address] Care Team Providers Care Code Machine Operator Name Role Phone Jess Munson MD Primary Care Physician + [phone] EVA BRYAN Attending Clinician Unavailable JESS MUNSON Attending Clinician Unavailab JESS Killian Attending Clinician Unavailab VANESSA Keene Attending Clinician Unavailable VANESSA LEYVA Attending Clinician Unavailable Jess Munson MD Attending Clinician [phone] SHORTY ZAMBRANO Attending Clinician Unavailable SHORTY ZAMBRANO Attending Clinician Unavailable Shorty Draper Attending Clinician [phone] Eva Bryan MD Attending Clinician +[phone] TIANNA MEI Attending Clinician Unavailable TIANNA MEI Attending Clinician Unavailable CARO BAUER Attending Clinician Unavailable CARO BAUER Attending Clinician Unavailable Caro Bauer MD Attending Clinician +[phone] Yann Ordonez Attending Clinician [phone] Yisel Hart MD Attending Clinician +[phone] YISEL HART Attending Clinician Unavailable KONRAD ORDOÑEZ Attending Clinician Unavailab KONRAD Holguin Attending Clinician Unavailab merly Ordoñez SPECIAL DUTY NURSE, Konrad Attending Clinician [phone] Tianna Young Attending Clinician [phone] ISAAC SHAY Attending Clinician Unavailable Vanessa Leyva MD Attending Clinician +[phone] Jose De Jesus Medina MD Attending Clinician +[phone] JOSE DE JESUS MEDINA Attending Clinician Unavailable JOSE DE JESUS MEDINA Attending Clinician Unavailable 2, [facility] Attending Clinician Unavailable KELLY SIMMS Attending Clinician UnavailKELLY Ferrera Attending Clinician Unavailelliott Simms MD, Kelly Tolentino Attending Clinician +[phone] TIFF ISABEL Attending Clinician Unavailable TIFF ISABEL Attending Clinician Unavailable Maame SPECIAL DUTY NURSE, Tiff Attending Clinician [phone], [facility] Attending Clinician Unavailable BONITA TRIVEDI Attending Clinician Unavailab Bonita Hernandez DO Attending Clinician +[phone] Carlos Ibrahim MD Attending Clinician +[phone] Doctor Unassigned, Colp Attending Clinician U NICOLE Aparicio Attending Clinician UnavailNICOLE Sellers Attending Clinician UnavailKAMILA Deal Attending Clinician Unavailable JACINTA VOSS Attending Clinician Unavailgloria cristobal [facility], [facility], [place], [facility] Attending Clinician Henrietta vailable Meche Richard Attending Clinician + Jacinta Voss CNM Attending Clinician +[phone] MECHE ROBERSON Attending Clinician Unavail able Rodrick Carlisle Attending Clinician Unava DREW Ren Attending Clinician Unavailable RODRICK PETE Attending Clinician Unavailab Wilver Weinstein MD Attending Clinician + [phone] LOVE DOWELL Attending Clinician UnavailLOVE Gonzalez Attending Clinician UnavailBRENDA Pedro Attending Clinician Unavailable Brenda Velásquez MD Attending Clinician +[phone] Fernando Acosta Attending Clinician +[phone] Ultrasound, Giovannakatelin Attending Clinician UnavailVinh Wong MD Attending Clinician +[phone] VINH MONCADA Attending Clinician Unavailable VINH MONCADA Attending Clinician Unavailable Ivanna Rodriguez Attending Clinician [phone] Maddie Romeo MD Attending Clinician +[phone] MADDIE ROMEO Attending Clinician Unavailable Lab, Dylan-Rmchp Attending Clinician Unavailable Alayna Pyle S Attending Clinician [phone] ANGUS DWYER Attending Clinician Unavailable Angus Dwyer DO Attending Clinician +[phone] Abdullahi Gomez MD Attending Clinician +[phone] Foreign Calvillo Attending Clinician + [phone] Edith Terry MD Attending Clinician +[phone] EDITH TERRY Attending Clinician Unavailable EDITH TERRY Attending Clinician Unavailable EVA BRYAN Admitting Clinician Unavailable Eva Bryan MD Admitting Clinician +[phone] YISEL HART Admitting Clinician Unavailable Yisel Hart MD Admitting Clinician +[phone] KELLY SIMMS Admitting Clinician UnavailVANESSA Garza Admitting Clinician Unavailable Vanessa Leyva MD Admitting Clinician +[phone] BRENDA VELÁSQUEZ Admitting Clinician Unavailable Brenda Velásquez MD Admitting Clinician +[phone] Edith Terry MD Admitting Clinician [phone] EDITH TERRY Admitting Clinician Unavailable Payers Payer Name Policy Type Policy Number Effective Date Expirati on Date Source [facility] STAR [id number] 2021 00:00:00 [employer]IOR STAR [id number] 2021 00:00:00 Problems Condition Name Condition Details Condition Category Status Onset Date Resolution Date Last Treatment Date Treating Clinician Comments Source Dre Newmanadde r sludge Disease Active 2023-02 1-23 00:00: 00 [facility] Hematemesi s with nausea Hematemesi s with nausea Disease Active 2023-02 0-03 00:00: 00 [facility] Coffee ground emesis Coffee ground emesis Disease Active 2023-02 0-03 00:00: 00 [facility] Abdominal pain, epigastric Abdominal pain, epigastric Disease Active 2023-02 0-03 00:00: 00 [facility] Papanicola ou smear of cervix with low grade squamous intraepith elial lesion (LGSIL) Papanicola ou smear of cervix with low grade squamous intraepith elial lesion (LGSIL) Disease Active 07-06 00:00: 00 Overview: Formattin g of this note might be different from the original. LGSIL in 2021 needs repeat pap smear in 2022. 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 Disease Active 4-12 00:00: 00 [facility] Tetrahydro cannabinol (THC) use disorder, mild, abuse Tetrahydro cannabinol (THC) use disorder, mild, abuse Disease Resolve d 5-10 00:00: 00 2022-12-25 00:00:00 2022-12-25 13:59:24 [facility] Chronic hypertensi on with superimpos ed preeclamps ia Chronic hypertensi on with superimpos ed preeclamps ia Disease Resolve d 2021-02 0-08 00:00: 00 2022-01-20 00:00:00 2022-01-20 14:17:40 [facility] Supervisio n of high risk , antepartum Supervisio n of high risk , antepartum Disease Resolve d 0 5-05 00:00: 00 2022-01-20 00:00:00 2022-01-20 14:17:35 [facility] GBS (group B Streptococ cus carrier), +RV culture, 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 Will need ABX in labor. [facility] Single liveborn, born in hospital, delivered by vaginal delivery Single liveborn, born in hospital, delivered by vaginal delivery Disease Resolve d 2021-02 0-09 00:00: 00 2021-12-22 00:00:00 2021-12-22 07:58:27 [facility] Morbid obesity with body mass index of 40.0-49.9 Morbid obesity with body mass index of 40.0-49.9 Disease Resolve d 2021-02 0-08 00:00: 00 2021-12-22 00:00:00 2021-12-22 15:59:51 [facility] Severe pre-eclamp shena in third trimester Severe pre-eclamp shena in third trimester Disease Resolve d 2021-02 0-08 00:00: 00 2021-12-22 00:00:00 2021-12-22 07:58:22 [facility] Elevated blood pressure reading without diagnosis of hypertensi on Elevated blood pressure reading without diagnosis of hypertensi on Disease Resolve d 9-08 00:00: 00 2021-12-22 00:00:00 2021-12-22 07:58:07 [facility] Proteinuri a affecting in third trimester Proteinuri a affecting in third trimester Disease Resolve d 9-08 00:00: 00 2021-12-22 00:00:00 2021-12-22 07:58:17 [facility] Intractabl e nausea and vomiting Intractabl e nausea and vomiting Disease Resolve d 2021-0 7-05 00:00: 00 2021-12-22 00:00:00 2021-12-22 07:58:09 [facility] Urinary tract infection without hematuria, site unspecifie d Urinary tract infection without hematuria, site unspecifie d Disease Resolve d 2021-0 6-02 00:00: 00 2021-12-22 00:00:00 2021-12-22 07:57:57 [facility] Nausea and vomiting during Nausea and vomiting during Disease Resolve d 2021-0 5-10 00:00: 00 2021-12-22 00:00:00 2021-12-22 07:58:11 [facility] Nausea and vomiting during Nausea and vomiting during Disease Resolve d 2021-0 5-10 00:00: 00 2021-12-22 00:00:00 2021-12-22 07:58:11 [facility] Primigravi da in second trimester Primigravi da in second trimester Disease Resolve d 2021-0 5-05 00:00: 00 2021-12-22 00:00:00 2021-12-22 07:58:15 [facility] Obesity in Obesity in Disease Resolve d 2021-0 5-05 00:00: 00 2021-12-22 00:00:00 2021-12-22 07:58:13 [facility] Chronic hypertensi on affecting Chronic hypertensi on affecting Disease Resolve d 2021-0 4-24 00:00: 00 2021-12-22 00:00:00 2021-12-22 07:58:04 [facility] BMI 40.0-44.9, adult BMI 40.0-44.9, adult Disease Resolve d 2021-0 4-23 00:00: 00 2021-12-22 00:00:00 2021-12-22 15:59:13 [facility] 15 weeks gestation of 15 weeks gestation of Disease Resolve d 2021-0 4-12 00:00: 00 2021-12-22 00:00:00 2021-12-22 07:58:01 [facility] Hyperemesi s Hyperemesi s Disease Resolve d 2021-0 5-10 00:00: 00 2021-11-26 00:00:00 2021-11-26 09:09:11 [facility] Hyperbilir ubinemia Hyperbilir ubinemia Disease Resolve d 2021-0 4-25 00:00: 00 2021-11-26 00:00:00 2021-11-26 09:09:06 [facility] Hypomagnes emia Hypomagnes emia Disease Resolve d 2021-0 4-25 00:00: 00 2021-11-26 00:00:00 2021-11-26 09:09:05 [facility] Hypocalcem ia Hypocalcem ia Disease Resolve d 2021-0 4-25 00:00: 00 2021-11-26 00:00:00 2021-11-26 09:09:03 [facility] Hypokalemi a Hypokalemi a Disease Resolve d 2021-0 4-12 00:00: 00 2021-11-26 00:00:00 2021-11-26 09:09:30 [facility] Hyponatrem ia Hyponatrem ia Disease Resolve d 2021-0 4-12 00:00: 00 2021-11-26 00:00:00 2021-11-26 09:09:33 [facility] Tachycardi a Tachycardi a Disease Resolve d 2021-0 4-12 00:00: 00 2021-11-26 00:00:00 2021-11-26 09:09:30 [facility] Nausea and vomiting in prior to 22 weeks gestation Nausea and vomiting in prior to 22 weeks gestation Disease Resolve d 2021-0 4-12 00:00: 00 2021-11-26 00:00:00 2021-11-26 09:09:43 [facility] Nausea and vomiting in prior to 22 weeks gestation Nausea and vomiting in prior to 22 weeks gestation Disease Resolve d 2021-0 4-12 00:00: 00 2021-11-26 00:00:00 2021-11-26 09:09:43 [facility] Allergies, Adverse Reactions, Alerts Allergy Name Allergy Type Status Severity Reaction(s) Onset Date Inactive Date Treating Clinician Comments Source Egg Propensi ty to adverse reaction s Active Nausea and/or Vomiting 06-29 00:00: 00 [facility] EGG DRUG INGREDI Active N/V 06-29 00:00: 00 [facility] Metoclop ramide Drug Allergy Active Extra pyramidal effects 05-31 00:00: 00 [facility] METOCLOP RAMIDE DRUG INGREDI Active Med EP Effects 05-31 00:00: 00 [facility] Social History Social Habit Start Date Stop Date Quantity Comments Source ASSERTION 2021-03-26 00:00:00 [facility] use Current smoker [facility] Alcoholic beverage intake 2024-01-30 00:00:00 2024-01-30 00:00:00 Current drinker of alcohol (finding) [facility] [...] Source Ex-smoker 2023-11-26 00:00:00 2023-11-26 00:00:00 [facility] Medications Ordered Medication Name Filled Medication Name Start Date Stop Date Current Medication? Ordering Clinician Indication Dosage Frequency Signature (SIG) Comments Components Source ondansetron (ZOFRAN-ODT ) disintegrat ing tablet 4 mg 02-21 09:45: 00 02-21 08:46 :00 No 4mg 4 mg, Oral, ONCE, 1 dose, On Sun02/22/24 at 0345, [facility] cefTRIAXone (ROCEPHIN) 1,000 mg in water for injection, sterile 10 mL IV Push 02-21 08:30: 00 02-21 08:31 :00 No 1000mg 1,000 mg, Intravenou s, ONCE, 1 dose, On Sun02/22/24 at 0230, 10 mL, Reason for Anti-Infec tive: Empiric Therapy for Suspected Infection, Empiric Therapy Site: Urine, Duration of therapy: Once (ED) [facility] iopamidol (ISOVUE 370-500 mL) injection 80 mL 02-21 08:30: 00 02-21 08:30 :00 No [id number] 80mL 80 mL, Intravenou s, ONCE, 1 dose, On Sun02/22/24 at 0230, Routine [facility] maalox/diph enhydrAMINE :lidocaine2 %viscous 1:1:1: suspension (COMPOUNDED ) 02-21 07:45: 00 02-21 07:36 :00 No 15mL 15 mL, Oral, ONCE, 1 dose, On Sun02/22/24 at 0145, [facility] NaCl 0.9% (NS) bolus infusion 1,000 mL 02-21 06:45: 00 02-21 08:11 :00 No 1000mL at 999 mL/hr, 1,000 mL, IV Infusion, ONCE, 1 dose, On Sun02/22/24 at 0045, [facility] morpHINE (4 mg/mL) injection 4 mg 02-21 06:00: 02-21 06:13 :00 No 4mg 4 mg, Slow IV Push, ONCE, 1 dose, On Sun02/22/24 at 0000, STAT [facility] ondansetron (ZOFRAN (PF)) injection 8 mg 02-21 06:00: 00 02-21 06:17 :00 No 8mg 8 mg, Slow IV Push, ONCE, 1 dose, On Sun02/22/24 at 0000, Administer over 2-5 Minutes, 4 mL [facility] ondansetron 4 mg disintegrat ing tablet 02-21 00:00: 00 Yes [id number] 4mg Take 1 tablet by mouth every 8 (eight) hours as needed for Nausea and Vomiting (N/V). [facility] cefdinir 300 mg capsule 02-21 00:00: 00 03-01 05:59 :00 Yes [id number] 300mg Take 1 capsule by mouth every 12 (twelve) hours for 7 days. [facility] acetaminoph en (TYLENOL EXTRA STRENGTH) 500 mg tablet 2023-02 00:00: 00 02-28 05:59 :00 Yes [id number] 1000mg Take 2 tablets by mouth every 8 (eight) hours for 15 days. [facility] ibuprofen 800 mg tablet 2023-02 00:00: 00 02-28 05:59 :00 Yes [id number] 800mg Take 1 tablet by mouth every 8 (eight) hours for 15 days. [facility] HYDROcodone -acetaminop hen (NORCO 5) tablet 1 tablet 2023-02 18:30: 00 01-28 19:00 :00 No 1{tbl} 1 tablet, Oral, ONCE, 1 dose, On Sun01/29/24 at 1230, Routine, PACU [facility] lactated ringers IV infusion 1,000 mL 2023-02 18:30: 00 01-28 22:20 :16 No 1000mL at 50 mL/hr, 1,000 mL, IV Infusion, CONTINUOUS , Starting on Sun01/29/24 at 1230, Until Sun01/29/24 at 1620, Routine, PACU [facility] HYDROmorphO ne (DILAUDID) injection 0.2 mg 2023-02 18:19: 17 01-28 22:20 :16 No .2mg 0.2 mg, Slow IV Push, Q5MIN PRN, 10 doses, Starting on Sun01/29/24 at 1219, Until Sun01/29/24 at 1620, Routine, Pain (scale 7-10), PACU, Is this medication approved by a Faculty level provider? Yes, media law faculty member approving Restricted medication : RADHA EVANS [facility] FENTanyl (PF) (SUBLIMAZE) injection 25 mcg 2023-02 18:19: 17 01-28 22:20 :16 No 25ug 25 mcg, Slow IV Push, Q5MIN PRN, 4 doses, Starting on Sun01/29/24 at 1219, Until Sun01/29/24 at 1620, Routine, Pain Scale 4-6, PACU [facility] ondansetron (ZOFRAN (PF)) injection 4 mg 2023-02 18:19: 17 01-28 22:20 :16 No 4mg 4 mg, Slow IV Push, PRN, 1 dose, Starting on Sun01/29/24 at 1219, Until Sun01/29/24 at 1620, Administer over 2-5 Minutes, 2 mL, PACU [facility] bupivacaine -epinephrin e-pf (SENSORCAIN E W/EPINEPHRI NE) 0.25 %-1:200,000 30 mL, lidocaine 1% (PF) (XYLOCAINE) 30 mL 2023-02 16:57: 00 01-28 18:29 :17 No PRN, Starting on Sun01/29/24 at 1057, Intra-op [facility] sodium chloride 0.9 % irrigation solution 2023-02 16:56: 00 01-28 18:29 :17 No PRN, Starting on Sun01/29/24 at 1056, Until Sun01/29/24 at 1229, Intra-op [facility] acetaminoph en (TYLENOL) 325 mg tablet 2023-02 00:00: 00 02-05 05:59 :00 Yes [id number] 650mg Take 2 tablets by mouth every 6 (six) hours for 7 days. [facility] ibuprofen 800 mg tablet 2023-02 00:00: 00 02-05 05:59 :00 Yes [id number] 800mg Take 1 tablet by mouth every 6 (six) hours for 7 days. [facility] traMADoL 50 mg tablet 2023-02 00:00: 00 02-05 05:59 :00 Yes [id number] 50mg Take 1 tablet by mouth every 8 (eight) hours for 7 days. Indication s: acute pain, chronic pain [facility] HYDROcodone -acetaminop hen 5-325 mg tablet 2023-02 00:00: 00 02-05 05:59 :00 Yes [id number] 1{tbl} Take 1 tablet by mouth every 6 (six) hours as needed for Pain (scale 7-10) for up to 7 days. Indication s: acute pain [facility] phentermine 37.5 mg tablet 2023-02 00:00: 00 Yes [id number] 104 37.5mg Take 1 tablet by mouth daily with breakfast. [facility] zolpidem 5 mg tablet 2023-02 00:00: 00 Yes [id number] 5mg Take 1 tablet by mouth at bedtime as needed for Insomnia. [facility] ondansetron 8 mg tablet 2023-02 00:00: 00 Yes [id number] 8mg Take 1 tablet by mouth every 8 (eight) hours as needed for Nausea and Vomiting (N/V). [facility] ketorolac (TORADOL) injection 30 mg 2023-02 11:30: 00 01-11 10:39 :00 No 30mg 30 mg, Slow IV Push, ONCE, 1 dose, On 01/12/24 at 0530, Routine [facility] fentanyl PF (SUBLIMAZE (PF)) injection 50 mcg 2023-02 11:15: 00 01-11 11:15 :00 No 50ug 50 mcg, Slow IV Push, ONCE, 1 dose, On 01/12/24 at 0515, Routine [facility] ondansetron (ZOFRAN (PF)) injection 4 mg 2023-02 10:30: 00 01-11 10:29 :00 No 4mg 4 mg, Slow IV Push, ONCE, 1 dose, On 01/12/24 at 0430, Administer over 2-5 Minutes, 2 mL [facility] (SUBLIMAZE (PF)) injection 50 mcg 2023-02 10:30: 00 01-11 10:40 :00 No 50ug 50 mcg, Slow IV Push, ONCE, 1 dose, On 01/12/24 at 0430, RACHAEL [facility] ondansetron (ZOFRAN (PF)) injection 4 mg 2023-02 10:15: 00 01-11 10:07 :00 No 4mg 4 mg, Slow IV Push, ONCE, 1 dose, On 01/12/24 at 0415, Administer over 2-5 Minutes, 2 mL [facility] traMADoL (ULTRAM) 50 mg tablet 2023-02 00:00: 00 Yes [id number] 50mg Take 1 tablet by mouth every 6 (six) hours as needed for Pain (scale 7-10). Indication s: acute pain [facility] dicyclomine 20 mg tablet 2023-02 00:00: 00 Yes [id number] 20mg Take 1 tablet by mouth every 6 (six) hours as needed for Abdominal pain. [facility] ondansetron (ZOFRAN) 4 mg tablet 2023-02 00:00: 00 01-27 00:00 :00 No [id number] 4mg Take 1 tablet by mouth every 8 (eight) hours as needed for Nausea and Vomiting (N/V). [facility] ondansetron 8 mg tablet 2023-02 00:00: 00 01-24 00:00 :00 No [id number] 8mg Take 1 tablet by mouth every 8 (eight) hours as needed for Nausea and Vomiting (N/V). [facility] ondansetron 4 mg disintegrat ing tablet 2023-02 00:00: 01-10 00:00 :00 No [id number] 4mg Take 1 tablet by mouth every 8 (eight) hours as needed for Nausea and Vomiting (N/V). [facility] phentermine 37.5 mg tablet 2023-02 00:00: 00 01-24 00:00 :00 No [id number] 104 37.5mg Take 1 tablet by mouth daily with breakfast. [facility] zolpidem 5 mg tablet 2023-02 00:00: 00 01-24 00:00 :00 No [id number] 5mg Take 1 tablet by mouth at bedtime as needed for Insomnia. [facility] ondansetron 4 mg disintegrat ing tablet 2023-02 00:00: 00 01-09 00:00 :00 No [id number] 4mg Take 1 tablet by mouth every 8 (eight) hours as needed for Nausea and Vomiting (N/V). [facility] ondansetron 4 mg tablet 2023-02 00:00: 00 01-10 00:00 :00 No [id number] 4mg Take 1 tablet by mouth every 8 (eight) hours as needed for Nausea and Vomiting (N/V). [facility] TRAZODONE 100 mg tablet 2023-02 00:00: 00 Yes [id number] 100mg TAKE 1 TABLET BY MOUTH EVERYDAY AT BEDTIME [facility] pantoprazol e 40 mg EC tablet 11-18 00:00: 00 Yes [id number] 40mg Take 1 tablet by mouth in the morning. [facility] phentermine 37.5 mg tablet 11-18 00:00: 00 12-24 00:00 :00 No [id number] 104 37.5mg Take 1 tablet by mouth daily with breakfast. [facility] zolpidem 5 mg tablet 11-18 00:00: 00 12-24 00:00 :00 No [id number] 5mg Take 1 tablet by mouth at bedtime as needed for Insomnia. [facility] proMETHazin e (PHENERGAN) 12.5 mg in NS 50 mL IV piggyback (CNR) 11-17 15:30: 00 11-17 15:49 :00 No 12.5mg 12.5 mg, IV Piggyback, at 200 mL/hr Administer over 15 Minutes, ONCE, 1 dose, On Sun11/18/23 at 1030, [facility] mor[facility] (4 mg/mL) injection 4 mg 11-17 15:30: 00 11-17 15:34 :00 No 4mg 4 mg, Slow IV Push, ONCE, 1 dose, On Sun11/18/23 at 1030, STAT [facility] ketorolac (TORADOL) injection 30 mg 11-17 15:00: 00 11-17 14:09 :00 No 30mg 30 mg, Slow IV Push, ONCE, 1 dose, On Sun11/18/23 at 1000, [facility] famotidine (PEPCID (PF)) injection 20 mg 11-17 14:15: 00 11-17 14:09 :00 No 20mg 20 mg, Slow IV Push, ONCE, 1 dose, On Sun11/18/23 at 0915, [facility] iopamidol (ISOVUE 370-500 mL) injection 100 mL 11-17 13:30: 00 11-17 13:45 :00 No [id number] 100mL 100 mL, Intravenou s, ONCE, 1 dose, On Sun11/18/23 at 0845, Routine [facility] NaCl 0.9% (NS) IV infusion 1,000 mL 11-17 13:00: 00 11-17 15:15 :00 No 1000mL at 999 mL/hr, Intravenou s, ONCE, 1 dose, On Sun11/18/23 at 0800, RACHAEL [facility] proMETHazin e (PHENERGAN) 12.5 mg in NS 50 mL IV piggyback (CNR) 11-17 12:30: 00 11-17 13:33 :00 No 12.5mg 12.5 mg, IV Piggyback, at 200 mL/hr Administer over 15 Minutes, ONCE, 1 dose, On Sun11/18/23 at 0730, RACHAEL [facility] fentanyl PF (SUBLIMAZE (PF)) injection 100 mcg 11-17 11:15: 00 11-17 11:16 :00 No 100ug 100 mcg, Slow IV Push, ONCE, 1 dose, On Sun11/18/23 at 0615, Routine [facility] ondansetron (ZOFRAN (PF)) injection 8 mg 11-17 11:00: 00 11-17 11:10 :00 No 8mg 8 mg, Slow IV Push, ONCE, 1 dose, On Sun11/18/23 at 0600, [facility] sodium chloride (NS) injection 5 mL 11-17 10:51: 45 Yes 5mL 5 mL, Intravenou s, PRN, Starting on Sun11/18/23 at 0551, Until Discontinu ed, Routine, IV line flushing [facility] proMETHazin e 25 mg tablet 11-17 00:00: 00 Yes [id number] 25mg Take 1 tablet by mouth every 6 (six) hours as needed for Nausea and Vomiting (N/V). [facility] traMADoL 50 mg tablet 11-17 00:00: 00 01-28 00:00 :00 No [id number] 50mg Take 1 tablet by mouth every 6 (six) hours as needed (pain). Indication s: acute pain [facility] zolpidem 5 mg tablet 11-17 00:00: 00 11-17 00:00 :00 No [id number] 5mg Take 1 tablet by mouth at bedtime as needed for Insomnia. [facility] KCL (KLOR-CON M20) tablet 20 mEq 11-07 19:30: 00 11-07 19:56 :00 No 20meq 20 mEq, Oral, ONCE, 1 dose, On Gabby 11/08/23 at 1430, [facility] proMETHazin e (PHENERGAN) 12.5 mg in NS 50 mL IV piggyback (CNR) 11-07 17:45: 00 11-07 18:53 :00 No 12.5mg 12.5 mg, IV Piggyback, at 200 mL/hr Administer over 15 Minutes, ONCE, 1 dose, On Gabby 11/08/23 at 1245, [facility] ondansetron (ZOFRAN (PF)) injection 4 mg 11-07 16:30: 00 11-07 16:38 :00 No 4mg 4 mg, Slow IV Push, ONCE, 1 dose, On Gabby 11/08/23 at 1130, [facility] famotidine (PEPCID (PF)) injection 20 mg 11-07 16:30: 00 11-07 16:38 :00 No 20mg 20 mg, Slow IV Push, ONCE, 1 dose, On Gabby 11/08/23 at 1130, [facility] NaCl 0.9% (NS) bolus infusion 1,000 mL 11-07 16:30: 00 11-07 19:53 :00 No 1000mL at 999 mL/hr, 1,000 mL, IV Infusion, ONCE, 1 dose, On Gabby 11/08/23 at 1130, [facility] morpHINE (4 mg/mL) injection 4 mg 11-07 15:45: 00 11-07 18:39 :00 No 4mg 4 mg, Slow IV Push, ONCE, 1 dose, On Gabby 11/08/23 at 1045, [facility] ondansetron 4 mg disintegrat ing tablet 11-07 00:00: 00 11-12 04:59 :00 No [id number] 4mg Take 1 tablet by mouth every 8 (eight) hours as needed for Nausea and Vomiting (N/V) for up to 4 days. [facility] zolpidem 5 mg tablet 10-18 00:00: 00 11-15 00:00 :00 No [id number] 5mg Take 1 tablet by mouth at bedtime as needed for Insomnia. [facility] ergocalcife rol, vitamin d2, (VITAMIN D2) 1,250 mcg (50,000 unit) capsule 10-15 00:00: 00 Yes [id number] Take 1 capsule by mouth weekly. [facility] phentermine 37.5 mg tablet 10-15 00:00: 00 11-18 00:00 :00 No [id number] 37.5mg Take 1 tablet by mouth daily with breakfast. [facility] ergocalcife rol, vitamin d2, (VITAMIN D2) 1,250 mcg (50,000 unit) capsule 10-02 00:00: 00 10-14 00:00 :00 No [id number] Take 1 capsule by mouth weekly. [facility] zolpidem 5 mg tablet 7 00:00: 00 10-15 00:00 :00 No [id number] 5mg Take 1 tablet by mouth at bedtime as needed for Insomnia. [facility] phentermine 37.5 mg tablet 0 7-25 00:00: 00 10-14 00:00 :00 No [id number] 37.5mg Take 1 tablet by mouth daily with breakfast. [facility] phentermine 37.5 mg tablet 2023-0 6-17 00:00: 00 09-11 00:00 :00 No [id number] 37.5mg Take 1 tablet by mouth daily with breakfast. [facility] zolpidem 5 mg tablet 2023-0 6-17 00:00: 00 09-11 00:00 :00 No [id number] 5mg Take 1 tablet by mouth at bedtime as needed for Insomnia. [facility] traZODone 100 mg tablet 0 6-05 00:00: 00 12-09 00:00 :00 No [id number] 100mg Take 1 tablet by mouth at bedtime. [facility] acetaminoph en (TYLENOL) tablet 650 mg -02 17:30: 00 06-20 17:25 :00 No 650mg 650 mg, Oral, ONCE, 1 dose, On Sun06/21/23 at 1230, RACHAEL [facility] sulfamethox azole-trime thoprim 800-160 mg per tablet - 00:00: 00 08-05 00:00 :00 No [id number] 1{tbl} Take 1 tablet by mouth every 12 (twelve) hours. [facility] phentermine 37.5 mg tablet 4-09 00:00: 00 08-05 00:00 :00 No [id number] 37.5mg Take 1 tablet by mouth daily with breakfast. [facility] traZODone 100 mg tablet 3-04 00:00: 00 07-24 00:00 :00 No [id number] 100mg Take 1 tablet by mouth at bedtime. [facility] phentermine 37.5 mg tablet 2-22 00:00: 00 05-28 00:00 :00 No [id number] 37.5mg Take 1 tablet by mouth daily with breakfast. [facility] zolpidem 5 mg tablet 0 2-15 00:00: 00 08-05 00:00 :00 No [id number] 5mg Take 1 tablet by mouth at bedtime as needed for Insomnia. [facility] phentermine 37.5 mg tablet 0 1-12 00:00: 00 04-11 00:00 :00 No [id number] 37.5mg Take 1 tablet by mouth daily with breakfast. [facility] zolpidem 5 mg tablet 0 1-02 00:00: 00 04-05 00:00 :00 No [id number] 5mg Take 1 tablet by mouth at bedtime as needed for Insomnia. [facility] phentermine 37.5 mg tablet 2022-02 00:00: 00 03-02 00:00 :00 No [id number] 37.5mg Take 1 tablet by mouth daily with breakfast. [facility] traZODone 100 mg tablet 2022-02 00:00: 00 04-22 00:00 :00 No [id number] 100mg Take 1 tablet by mouth at bedtime. [facility] phentermine 37.5 mg tablet 2022-02 00:00: 00 01-26 00:00 :00 No [id number] 37.5mg Take 1 tablet by mouth daily with breakfast. [facility] zolpidem 5 mg tablet 2022-02 00:00: 00 02-19 00:00 :00 No [id number] 5mg Take 1 tablet by mouth at bedtime as needed for Insomnia. [facility] TRAZODONE 50 mg tablet 2022-02 00:00: 00 01-24 00:00 :00 No [id number] 50mg TAKE 1 TABLET BY MOUTH EVERYDAY AT BEDTIME [facility] ramelteon 8 mg tablet 2022-02 00:00: 00 01-24 00:00 :00 No [id number] 8mg Take 1 tablet by mouth at bedtime. [facility] Doxepin 6 mg Tab 2022-02 00:00: 00 01-04 00:00 :00 No [id number] 6mg Take 6 mg by mouth at bedtime. [facility] ergocalcife rol, vitamin d2, (VITAMIN D2) 1,250 mcg (50,000 unit) capsule 2022-02 00:00: 00 09-30 00:00 :00 No [id number] 12943C Take 1 capsule by mouth weekly. [facility] traZODone 50 mg tablet 2022-02 00:00: 00 01-16 00:00 :00 No [id number] 50mg Take 1 tablet by mouth at bedtime. [facility] medroxyPROG ESTERone (DEPO-PROVE RA) syringe 150 mg 2021-02 21:15: 00 01-20 20:41 :00 No [id number] 150mg [facility] NIFEdipine ER 30 mg tablet 2021-02 0-11 00:00: 00 01-20 00:00 :00 No [id number] 30mg Take 1 tablet by mouth in the morning. [facility] NIFEdipine ER tablet 30 mg 2021-02 0- 04:00: 00 Yes 30mg 30 mg, Oral, DAILY, First dose on 11/27/21 at 2300, Until Discontinu ed, Routine [facility] vitamin w/FA tablet 2021-02 00:00: 00 01-20 00:00 :00 No [id number] 1{tbl} Take 1 tablet by mouth in the morning. [facility] docusate 100 mg capsule 2021-02 00:00: 00 01-20 00:00 :00 No [id number] 200mg Take 2 capsules by mouth once daily as needed for Constipati on. [facility] ferrous sulfate 325 mg (65 mg iron) tablet 2021-02 00:00: 00 01-20 00:00 :00 No [id number] 325mg Take 1 tablet by mouth in the morning and 1 tablet in the evening. [facility] ibuprofen 600 mg tablet 2021-02 0 00:00: 00 01-20 00:00 :00 No [id number] 600mg Take 1 tablet by mouth every 6 (six) hours as needed (Pain). Take with food or milk. [facility] D5W 0.45% NaCl (1/2NS) IV infusion 1,000 mL 2021-02 19:38: 00 Yes 1000mL at 50 mL/hr, 1,000 mL, IV Infusion, CONTINUOUS , Starting on 11/27/21 at 1445, Until Discontinu ed, Routine [facility] magnesium hydroxide (MILK OF MAGNESIA) 400 mg/5 mL suspension 30 mL 2021-02 12:41: 25 Yes 30mL 30 mL, Oral, QDAILYPRN, Starting on 11/27/21 at 0741, Until Discontinu ed, Routine, Constipati on [facility] benzocaine- menthol (DERMOPLAST ) 20-0.5 % topical spray 2021-02 12:41: 25 Yes Topical, PRN, Starting on 11/27/21 at 0741, Until Discontinu ed, Routine, Perineum discomfort [facility] HYDROcodone -acetaminop hen (NORCO 5) 5-325 mg tablet 1 tablet 2021-02 12:41: 25 Yes 1{tbl} 1 tablet, Oral, Q6HPRN, Starting on 11/27/21 at 0741, Until Discontinu ed, Routine, Pain (scale 7-10) [facility] ibuprofen (IBU) tablet 600 mg 2021-02 12:41: 25 Yes 600mg 600 mg, Oral, Q6HPRN, Starting on 11/27/21 at 0741, Until Discontinu ed, Routine, Pain (scale 4-6) [facility] acetaminoph en (TYLENOL) tablet 650 mg 2021-02 12:41: 25 Yes 650mg 650 mg, Oral, Q6HPRN, Starting on 11/27/21 at 0741, Until Discontinu ed, Routine, Pain (scale 1-3) [facility] diphenhydrA MINE (BENADRYL) tablet 25 mg 2021-02 12:41: 25 Yes 25mg 25 mg, Oral, Q6HPRN, Starting on 11/27/21 at 0741, Until Discontinu ed, Routine, Sleep, Itching [facility] ondansetron (ZOFRAN (PF)) injection 4 mg 2021-02 12:41: 25 Yes 4mg 4 mg, Slow IV Push, Q8HPRN, Starting on 11/27/21 at 0741, Until Discontinu ed, Routine, Nausea and Vomiting (N/V) [facility] simethicone (GAS RELIEF (SIMETHICON E)) chewable tablet 160 mg 2021-02 12:41: 25 Yes 160mg 160 mg, Oral, PC+HSPRN, Starting on Sun11/27/21 at 0741, Until Discontinu ed, Routine, Gas [facility] docusate (COLACE) capsule 200 mg 2021-02 12:41: 25 Yes 200mg 200 mg, Oral, QDAILYPRN, Starting on Sun11/27/21 at 0741, Until Discontinu ed, Routine, Constipati on [facility] calcium gluconate 100 mg/mL (10%) injection 1,000 mg 2021-02 12:40: 21 Yes 1000mg 1,000 mg, Slow IV Push, PRN - SEE INSTRUCTIO NS, Starting on Sun11/27/21 at 0740, Until Discontinu ed, Routine, magnesium toxicity [facility] magnesium sulfate 4 mEq/mL (50 %) injection 32.48 mEq 2021-02 12:40: 21 Yes 4g 32.48 mEq (4 g), Slow IV Push, PRN - SEE INSTRUCTIO NS, Starting on 11/27/21 at 0740, Until Discontinu ed, Routine, For seizure activity (patient not on magnesium sulfate) [facility] magnesium sulfate 4 mEq/mL (50 %) injection 16.24 mEq 2021-02 12:40: 21 Yes 2g 16.24 mEq (2 g), Slow IV Push, PRN - SEE INSTRUCTIO NS, 2 doses, Starting on Sun11/27/21 at 0740, Until Discontinu ed, Routine, For seizure activity (patient already on magnesium sulfate) [facility] labetaloL (NORMODYNE) injection 20 mg [...] Hypertensi ve Emergency in [Order 4 End] [facility] oxytocin (PITOCIN) 30 units in NS 500 mL IV infusion 2021-02 0 02:10: 24 11-27 12:40 :54 No 2mU/min at 2-40 mL/hr, IV Infusion, TITRATE, Starting on [facility] 11/26/21 at 2110, Until [place] 11/27/21 at 0740, Routine [facility] penicillin g pot in dextrose 3 million unit/50 mL RTU iv piggyback 3 Million Units 2021-02 0-08 22:15: 00 11-27 12:40 :54 No 310 3 Million Units, IV Piggyback, Q4H ABX, First dose on 11/26/21 at 1715, Until Discontinu ed, Administer over 60 Minutes, 50 mL
Reas on for Anti-Infec tive: Empiric Non-Surgic al Prophylaxi s
Durat ion of therapy: 72 hours [facility] fentaNYL-ro pivacaine 2 mcg/mL-0.1 % (PF) in NS 200 mL epidural infusion RTU 2021-02 0 20:46: 00 11-27 13:52 :31 No Epidural, ONCE INTRA PROCEDURE, Starting on 11/26/21 at 1546, Until 11/27/21 at 0852, Routine, Intra-op [facility] lidocaine-e pinephrine (XYLOCAINE W/EPINEPHRI NE) 1.5 %-1:200,000 injection 2021-02 20:43: 00 Yes Epidural, ONCE INTRA PROCEDURE, Starting on 11/26/21 at 1543, Until Discontinu ed, Routine, Intra-op [facility] penicillin g potassium 5 Million Units in NaCl 0.9% (NS) 100 mL MINI-BAG 2021-02 18:15: 00 11-26 19:13 :00 No 510 5 Million Units, IV Piggyback, ONCE, 1 dose, On 11/26/21 at 1315, Administer over 60 Minutes, 100 mL
Reas on for Anti-Infec tive: Empiric Non-Surgic al Prophylaxi s
Durat ion of therapy: 72 hours [facility] NaCl 0.9% (NS) IV infusion 1,000 mL 2021-02 18:00: 00 11-27 12:40 :54 No 1000mL at 50 mL/hr, IV Infusion, CONTINUOUS , Starting on 11/26/21 at 1300, Until 11/27/21 at 0740, Routine [facility] oxytocin (PITOCIN) 30 units in NS 500 mL IV infusion 2021-02 14:31: 25 11-27 02:11 :24 No 2mU/min at 2-40 mL/hr, IV Infusion, TITRATE, Starting on 11/26/21 at 0931, Until 11/26/21 at 2111, Routine [facility] FENTanyl PF (SUBLIMAZE (PF)) injection 100 mcg 2021-02 0-08 13:50: 58 11-27 12:40 :54 No 100ug 100 mcg, Slow IV Push, Q1HPRN, Starting on 11/26/21 at 0850, Until 11/27/21 at 0740, Routine, Pain (scale 4-6), Pain (scale 7-10) [facility] misoprostol (CYTOTEC) quarter-tab let 25 mcg 2021-02 0 13:45: 00 11-26 13:22 :00 No 25ug 25 mcg, Vaginal, ONCE, 1 dose, On 11/26/21 at 0845, Routine [facility] butalbital- acetaminoph en-caff (ESGIC) 50-325-40 mg tablet 1 tablet 2021-02 09:45: 00 11-26 08:57 :00 No 1{tbl} 1 tablet, Oral, ONCE NOW, 1 dose, On 11/26/21 at 0445, Routine [facility] magnesium sulfate in water for injection 20 gram/500 mL (4 %) IV infusion 2021-02 09:00: 00 Yes 2g/h 2 g/hr (50 mL/hr), IV Infusion, CONTINUOUS , Starting on 11/26/21 at 0400, Until Discontinu ed, Routine [facility] D5W 0.45% NaCl (1/2NS) IV infusion 1,000 mL 2021-02 09:00: 00 11-27 12:40 :54 No 1000mL at 75 mL/hr, 1,000 mL, IV Infusion, CONTINUOUS , Starting on 11/26/21 at 0400, Until 11/27/21 at 0740, Routine [facility] promethazin e 6.25 mg/5 mL solution 11-09 00:00: 00 11-28 00:00 :00 No [id number] 12.5mg Take 10 mL by mouth every 4 (four) hours as needed for Nausea and Vomiting (N/V). [facility] promethazin e 6.25 mg/5 mL solution 830 00:00: 00 11-09 00:00 :00 No [id number] 12.5mg Take 10 mL by mouth every 4 (four) hours as needed for Nausea and Vomiting (N/V). [facility] promethazin e 6.25 mg/5 mL solution 8-11 00:00: 00 10-18 00:00 :00 No [id number] 12.5mg Take 10 mL by mouth every 4 (four) hours as needed for Nausea and Vomiting (N/V). [facility] promethazin e 6.25 mg/5 mL solution 6-23 00:00: 00 09-15 00:00 :00 No [id number] 12.5mg Take 10 mL by mouth every 4 (four) hours as needed for Nausea and Vomiting (N/V). [facility] proMETHazin e 25 mg tablet 07-17 00:00: 00 09-15 00:00 :00 No [id number] 25mg Take 1 tablet by mouth every 6 (six) hours as needed for Nausea and Vomiting (N/V). [facility] promethazin e 6.25 mg/5 mL solution 06-24 00:00: 00 06-29 00:00 :00 No [id number] 12.5mg Take 10 mL by mouth every 4 (four) hours as needed for Nausea and Vomiting (N/V). [facility] vit 33-iron-fol ic-dha (SELECT-OB + DHA) 29 mg iron-1 mg -250 mg combo pack 06-23 00:00: 00 07-17 00:00 :00 No [id number] 1{packe t} Take 1 Packet by mouth daily. [facility] proMETHazin e 25 mg suppository 504 00:00: 00 09-15 00:00 :00 No [id number] 25mg Insert 1 Suppositor y into rectum every 4 (four) hours as needed for Nausea and Vomiting (N/V). [facility] Immunizations Ordered Immunization Name Filled [...] [facility] [place] [facility] 2021-09-29 00:00:00 Completed [facility] TDAP 2021-09-29 00:00:00 Completed [facility] HEPATITIS A Unknown Completed [facility] Hep B, Adol or Pedi Dosage Unknown [...] and W-135) conjugate vaccine (MCV4P) Unknown Completed [facility] MMR Unknown Completed [facility] IPV Unknown Completed [facility] Poliovirus, Live, Oral, Trivalent Unknown Completed [facility] HPV9 Unknown Completed [facility] HEPATITIS A Unknown Completed [facility] Haemophilus influenzae type b vaccine, conjugate unspecified formulation Unknown Completed [facility] HPV Unknown Completed [facility] Meningococcal Polysaccharide (groups A, C, Y and W-135) conjugate vaccine (MCV4P) Unknown Completed [facility] HPV9 Unknown [facility] [place] Poliovirus, Live, Oral, Trivalent Unknown Completed [facility] TDAP Unknown Completed [facility] DTaP, Unspecified Formulation Unknown Completed [facility] HEPATITIS A Unknown Completed [facility] Hep B, Adol or Pedi Dosage [...] and W-135) conjugate vaccine (MCV4P) Unknown Completed [facility] MMR Unknown Completed [facility] IPV Unknown Completed [facility] Poliovirus, Live, Oral, Trivalent Unknown Completed [facility] HPV9 Unknown Completed [facility] TDAP Unknown Completed [facility] DTaP, Unspecified Formulation Unknown Completed [facility] HEPATITIS A Unknown Completed [facility] Hep B, Adol or Pedi Dosage [...] and W-135) conjugate vaccine (MCV4P) Unknown Completed [facility] MMR Unknown Completed [facility] IPV Unknown Completed [facility] Poliovirus, Live, Oral, Trivalent Unknown Completed [facility] HPV9 Unknown Completed [facility] TDAP Unknown Completed [facility] DTaP, Unspecified Formulation Unknown Completed [facility] HEPATITIS A Unknown Completed [facility] Hep B, Adol or Pedi Dosage [...] and W-135) conjugate vaccine (MCV4P) Unknown Completed [facility] MMR Unknown Completed [facility] IPV Unknown Completed [facility] Poliovirus, Live, Oral, Trivalent Unknown Completed [facility] HPV9 Unknown Completed [facility] TDAP Unknown Completed [facility] DTaP, Unspecified Formulation Unknown Completed [facility] HEPATITIS A Unknown Completed [facility] Hep B, Adol or Pedi Dosage [...] and W-135) conjugate vaccine (MCV4P) Unknown Completed [facility] MMR Unknown Completed [facility] IPV Unknown Completed [facility] Poliovirus, Live, Oral, Trivalent Unknown Completed [facility] HPV9 Unknown Completed [facility] HEPATITIS A Unknown Completed [facility] Haemophilus influenzae type b vaccine, conjugate unspecified formulation Unknown Completed [facility] HPV Unknown Completed [facility] Meningococcal Polysaccharide (groups A, C, Y and W-135) conjugate vaccine (MCV4P) Unknown Completed [facility] HPV9 Unknown [facility] [place] Poliovirus, Live, Oral, Trivalent Unknown Completed [facility] TDAP Unknown Completed [facility] DTaP, Unspecified Formulation Unknown Completed [facility] HEPATITIS A Unknown Completed [facility] Hep B, Adol or Pedi Dosage Unknown [...] and W-135) conjugate vaccine (MCV4P) Unknown Completed [facility] MMR Unknown Completed [facility] IPV Unknown Completed [facility] Poliovirus, Live, Oral, Trivalent Unknown Completed [facility] HPV9 Unknown Completed [facility] TDAP Unknown Completed [facility] DTaP, Unspecified Formulation Unknown Completed [facility] HEPATITIS A Unknown Completed [facility] Hep B, Adol or Pedi Dosage [...] and W-135) conjugate vaccine (MCV4P) Unknown Completed [facility] MMR Unknown Completed [facility] IPV Unknown Completed [facility] Poliovirus, Live, Oral, Trivalent Unknown Completed [facility] HPV9 Unknown Completed [facility] TDAP Unknown Completed [facility] DTaP, Unspecified Formulation Unknown Completed [facility] HEPATITIS A Unknown Completed [facility] Hep B, Adol or Pedi Dosage Unknown [...] and W-135) conjugate vaccine (MCV4P) Unknown Completed [facility] MMR Unknown Completed [facility] IPV Unknown Completed [facility] Poliovirus, Live, Oral, Trivalent Unknown Completed [facility] HPV9 Unknown Completed [facility] TDAP Unknown Completed [facility] DTaP, Unspecified Formulation Unknown Completed [facility] HEPATITIS A Unknown Completed [facility] Hep B, Adol or Pedi Dosage [...] and W-135) conjugate vaccine (MCV4P) Unknown Completed [facility] MMR Unknown Completed [facility] IPV Unknown Completed [facility] Poliovirus, Live, Oral, Trivalent Unknown Completed [facility] HPV9 Unknown Completed [facility] HEPATITIS A Unknown Completed [facility] Haemophilus influenzae type b vaccine, conjugate unspecified formulation Unknown Completed [facility] HPV Unknown Completed [facility] Meningococcal Polysaccharide (groups A, C, Y and W-135) conjugate vaccine (MCV4P) Unknown Completed [facility] HPV9 [facility] [place] Poliovirus, Live, Oral, Trivalent Unknown Completed [facility] TDAP Unknown Completed [facility] DTaP, Unspecified Formulation Unknown Completed [facility] HEPATITIS A Unknown Completed [facility] Hep B, Adol or Pedi Dosage [...] and W-135) conjugate vaccine (MCV4P) Unknown Completed [facility] MMR Unknown Completed [facility] IPV Unknown Completed [facility] Poliovirus, Live, Oral, Trivalent Unknown Completed [facility] HPV9 Unknown Completed [facility] TDAP Unknown Completed [facility] DTaP, Unspecified Formulation Unknown Completed [facility] HEPATITIS A Unknown Completed [facility] Hep B, Adol or Pedi Dosage [...] and W-135) conjugate vaccine (MCV4P) Unknown Completed [facility] MMR Unknown Completed [facility] IPV Unknown Completed [facility] Poliovirus, Live, Oral, Trivalent Unknown Completed [facility] HPV9 Unknown Completed [facility] TDAP Unknown Completed [facility] DTaP, Unspecified Formulation Unknown Completed [facility] HEPATITIS A Unknown Completed [facility] Hep B, Adol or Pedi Dosage [...] and W-135) conjugate vaccine (MCV4P) Unknown Completed [facility] MMR Unknown Completed [facility] IPV Unknown Completed [facility] Poliovirus, Live, Oral, Trivalent Unknown Completed [facility] HPV9 Unknown Completed [facility] TDAP Unknown Completed [facility] DTaP, Unspecified Formulation Unknown Completed [facility] HEPATITIS A Unknown Completed [facility] Hep B, Adol or Pedi Dosage [...] and W-135) conjugate vaccine (MCV4P) Unknown Completed [facility] MMR Unknown Completed [facility] IPV Unknown Completed [facility] Poliovirus, Live, Oral, Trivalent Unknown Completed [facility] HPV9 Unknown Completed [facility] HEPATITIS A Unknown Completed [facility] Haemophilus influenzae type b vaccine, conjugate unspecified formulation Unknown Completed [facility] HPV Unknown Completed [facility] Meningococcal Polysaccharide (groups A, C, Y and W-135) conjugate vaccine (MCV4P) Unknown Completed [facility] HPV9 Unknown Completed [facility] TDAP Unknown Completed [facility] DTaP, Unspecified Formulation Unknown Completed [facility] HEPATITIS A Unknown Completed [facility] Hep B, Adol or Pedi Dosage [...] and W-135) conjugate vaccine (MCV4P) Unknown Completed [facility] MMR Unknown Completed [facility] IPV Unknown Completed [facility] Poliovirus, Live, Oral, Trivalent Unknown Completed [facility] HPV9 Unknown Completed [facility] TDAP Unknown Completed [facility] DTaP, Unspecified Formulation Unknown Completed [facility] HEPATITIS A Unknown Completed [facility] Hep B, Adol or Pedi Dosage [...] and W-135) conjugate vaccine (MCV4P) Unknown Completed [facility] MMR Unknown Completed [facility] IPV Unknown Completed [facility] Poliovirus, Live, Oral, Trivalent Unknown Com[facility] [facility] HPV9 Unknown Completed [facility] TDAP Unknown Completed [facility] DTaP, Unspecified Formulation Unknown Completed [facility] HEPATITIS A Unknown Completed [facility] Hep B, Adol or Pedi Dosage [...] and W-135) conjugate vaccine (MCV4P) Unknown Completed [facility] MMR Unknown Completed [facility] IPV Unknown Completed [facility] Poliovirus, Live, Oral, Trivalent Unknown Completed [facility] HPV9 Unknown Completed [facility] TDAP Unknown Completed [facility] DTaP, Unspecified Formulation Unknown Completed [facility] HEPATITIS A Unknown Completed [facility] Hep B, Adol or Pedi Dosage [...] and W-135) conjugate vaccine (MCV4P) Unknown Completed [facility] MMR Unknown Completed [facility] IPV Unknown Completed [facility] Poliovirus, Live, Oral, Trivalent Unknown Completed [facility] HPV9 [facility] [place] Poliovirus, Live, Oral, Trivalent Unknown Completed [facility] TDAP Unknown Completed [facility] DTaP, Unspecified Formulation Unknown Completed [facility] HEPATITIS A Unknown Completed [facility] Hep B, Adol or Pedi Dosage [...] and W-135) conjugate vaccine (MCV4P) Unknown Completed [facility] MMR Unknown Completed [facility] IPV Unknown Completed [facility] Poliovirus, Live, Oral, Trivalent Unknown Completed [facility] HPV9 Unknown Completed [facility] TDAP Unknown Completed [facility] DTaP, Unspecified Formulation Unknown Completed [facility] HEPATITIS A Unknown Completed [facility] Hep B, Adol or Pedi Dosage [...] and W-135) conjugate vaccine (MCV4P) Unknown Completed [facility] MMR Unknown Completed [facility] IPV Unknown Completed [facility] Poliovirus, Live, Oral, Trivalent Unknown Completed [facility] HPV9 Unknown Completed [facility] TDAP Unknown Completed [facility] DTaP, Unspecified Formulation Unknown Completed [facility] HEPATITIS A Unknown Completed [facility] Hep B, Adol or Pedi Dosage [...] and W-135) conjugate vaccine (MCV4P) Unknown Completed [facility] MMR Unknown Completed [facility] IPV Unknown Completed [facility] Poliovirus, Live, Oral, Trivalent Unknown Completed [facility] HPV9 Unknown Completed [facility] TDAP Unknown Completed [facility] DTaP, Unspecified Formulation Unknown Completed [facility] HEPATITIS A Unknown Completed [facility] Hep B, Adol or Pedi Dosage [...] and W-135) conjugate vaccine (MCV4P) Unknown Completed [facility] MMR Unknown Completed [facility] IPV Unknown Completed [facility] Poliovirus, Live, Oral, Trivalent Unknown Completed [facility] HPV9 Unknown Completed [facility] TDAP Unknown Completed [facility] DTaP, Unspecified Formulation Unknown Completed [facility] HEPATITIS A Unknown Completed [facility] Hep B, Adol or Pedi Dosage [...] and W-135) conjugate vaccine (MCV4P) Unknown Completed [facility] MMR Unknown Completed [facility] IPV Unknown Completed [facility] Poliovirus, Live, Oral, Trivalent Unknown Completed [facility] HPV9 Unknown Completed [facility] TDAP Unknown Completed [facility] DTaP, Unspecified Formulation Unknown Completed [facility] HEPATITIS A Unknown Completed [facility] Hep B, Adol or Pedi Dosage [...] and W-135) conjugate vaccine (MCV4P) Unknown Completed [facility] MMR Unknown Completed [facility] IPV Unknown Completed [facility] Poliovirus, Live, Oral, Trivalent Unknown Completed [facility] HPV9 Unknown Completed [facility] TDAP Unknown Completed [facility] DTaP, Unspecified Formulation Unknown Completed [facility] HEPATITIS A Unknown Completed [facility] Hep B, Adol or Pedi Dosage [...] and W-135) conjugate vaccine (MCV4P) Unknown Completed [facility] MMR Unknown Completed [facility] IPV Unknown Completed [facility] Poliovirus, Live, Oral, Trivalent Unknown Completed [facility] HPV9 Unknown Completed [facility] TDAP Unknown Completed [facility] DTaP, Unspecified Formulation Unknown Completed [facility] HEPATITIS A Unknown Completed [facility] Hep B, Adol or Pedi Dosage [...] and W-135) conjugate vaccine (MCV4P) Unknown Completed [facility] MMR Unknown Completed [facility] IPV Unknown Completed [facility] Poliovirus, Live, Oral, Trivalent Unknown Completed [facility] HPV9 Unknown Completed [facility] HEPATITIS A Unknown Completed [facility] Haemophilus influenzae type b vaccine, conjugate unspecified formulation Unknown Completed [facility] HPV Unknown Completed [facility] Meningococcal Polysaccharide (groups A, C, Y and W-135) conjugate vaccine (MCV4P) Unknown Completed [facility] HPV9 [facility] [place] Poliovirus, Live, Oral, Trivalent Unknown Completed [facility] HEPATITIS A Unknown Completed [facility] Haemophilus influenzae type b vaccine, conjugate unspecified formulation Unknown Completed [facility] HPV Unknown Completed [facility] Meningococcal Polysaccharide (groups A, C, Y and W-135) conjugate vaccine (MCV4P) Unknown Completed [facility] HPV9 [facility] [place] Poliovirus, Live, Oral, Trivalent Unknown Completed [facility] HEPATITIS A Unknown Completed [facility] Haemophilus influenzae type b vaccine, conjugate unspecified formulation Unknown Completed [facility] HPV Unknown Completed [facility] Meningococcal Polysaccharide (groups A, C, Y and W-135) conjugate vaccine (MCV4P) Unknown Completed [facility] HPV9 [facility] [place] Poliovirus, Live, Oral, Trivalent Unknown Completed [facility] TDAP Unknown Completed [facility] DTaP, Unspecified Formulation Unknown Completed [facility] HEPATITIS A Unknown Completed [facility] Hep B, Adol or Pedi Dosage [...] and W-135) conjugate vaccine (MCV4P) Unknown Completed [facility] MMR Unknown Completed [facility] IPV Unknown Completed [facility] Poliovirus, Live, Oral, Trivalent Unknown Completed [facility] HPV9 Unknown Completed [facility] TDAP Unknown Completed [facility] DTaP, Unspecified Formulation Unknown Completed [facility] HEPATITIS A Unknown Completed [facility] Hep B, Adol or Pedi Dosage [...] and W-135) conjugate vaccine (MCV4P) Unknown Completed [facility] MMR Unknown Completed [facility] IPV Unknown Completed [facility] Poliovirus, Live, Oral, Trivalent Unknown Completed [facility] HPV9 Unknown Completed [facility] TDAP Unknown Completed [facility] DTaP, Unspecified Formulation Unknown Completed [facility] HEPATITIS A Unknown Completed [facility] Hep B, Adol or Pedi Dosage [...] and W-135) conjugate vaccine (MCV4P) Unknown Completed [facility] MMR Unknown Completed [facility] IPV Unknown Completed [facility] Poliovirus, Live, Oral, Trivalent Unknown Completed [facility] HPV9 Unknown Completed [facility] TDAP Unknown Completed [facility] DTaP, Unspecified Formulation Unknown Completed [facility] HEPATITIS A Unknown Completed [facility] Hep B, Adol or Pedi Dosage Unknown [...] and W-135) conjugate vaccine (MCV4P) Unknown Completed [facility] MMR Unknown Completed [facility] IPV Unknown Completed [facility] Poliovirus, Live, Oral, Trivalent Unknown Completed [facility] HPV9 Unknown Completed [facility] TDAP Unknown Completed [facility] DTaP, Unspecified Formulation Unknown Completed [facility] HEPATITIS A Unknown Completed [facility] Hep B, Adol or Pedi Dosage [...] and W-135) conjugate vaccine (MCV4P) Unknown Completed [facility] MMR Unknown Completed [facility] IPV Unknown Completed [facility] Poliovirus, Live, Oral, Trivalent Unknown Completed [facility] HPV9 Unknown Completed [facility] Vital Signs Vital Name Observation Time Observation Value Comments S ource Systolic blood pressure 2024-02-22 08:00:00 172 mm[Hg] [facility] Diastolic blood pressure 2024-02-22 08:00:00 90 mm[Hg] [facility] Heart rate 2024-02-22 08:00:00 89 /min [facility] Body temperature 2024-02-22 08:00:00 36.89 Ava [facility] Respiratory rate 2024-02-22 08:00:00 20 /min [facility] Oxygen saturation in Arterial blood by Pulse oximetry 2024-02-22 08:00:00 100 /min [facility] Body height 2024-02-22 05:52:00 165.1 cm [facility] Body weight 2024-02-22 05:52:00 108.863 kg [facility] BMI 2024-02-22 05:52:00 39.94 kg/m2 [facility] Systolic blood pressure 2024-01-29 19:50:00 125 mm[Hg] [facility] Diastolic blood pressure 2024-01-29 19:50:00 85 mm[Hg] [facility] Heart rate 2024-01-29 19:50:00 103 /[facility] 2024-01-29 19:50:00 15 /min [facility] Oxygen saturation in Arterial blood by Pulse oximetry 2024-01-29 19:50:00 96 /min [facility] Body temperature 2024-01-29 18:30:00 36.33 Ava [facility] Body height 2024-01-21 21:15:[address] [facility] Body weight 2024-01-21 21:15:[address] [facility] BMI 2024-01-21 21:15:00 44.93 kg/m2 [facility] Systolic blood pressure 2024-01-29 18:35:00 127 mm[Hg] [facility] Diastolic blood pressure 2024-01-29 18:35:00 82 mm[Hg] [facility] Heart rate 2024-01-29 18:35:00 114 /min [facility] Respiratory rate 2024-01-29 18:35:00 18 /min [facility] Oxygen saturation in Arterial blood by Pulse oximetry 2024-01-29 18:35:00 100 /min [facility] Body temperature 2024-01-29 18:30:00 36.33 Ava [facility] Body height 2024-01-21 21:15:[address] [facility] Body weight 2024-01-21 21:15:[address] [facility] BMI 2024-01-21 21:15:00 44.93 kg/m2 [facility] Systolic blood pressure 2024-01-12 11:25:00 156 mm[Hg] [facility] Diastolic blood pressure 2024-01-12 11:25:00 110 mm[Hg] [facility] Respiratory rate 2024-01-12 11:25:00 12 /min [facility] Oxygen saturation in Arterial blood by Pulse oximetry 2024-01-12 11:25:00 97 /min [facility] Heart rate 2024-01-12 11:15:00 88 /min [facility] Body temperature 2024-01-12 09:59:00 36.5 Ava [facility] Body height 2024-01-12 09:59:[address] [facility] Body weight 2024-01-12 09:59:00 122.471 kg [facility] BMI 2024-01-12 09:59:00 44.93 kg/m2 [facility] Systolic blood pressure 2024-01-07 17:05:00 136 mm[Hg] [facility] Diastolic blood pressure 2024-01-07 17:05:00 99 mm[Hg] [facility] Heart rate 2024-01-07 17:05:00 109 /min [facility] Oxygen saturation in Arterial blood by Pulse oximetry 2024-01-07 17:05:00 100 /min [facility] Body temperature 2024-01-07 17:02:00 36.39 Ava [facility] Respiratory rate 2024-01-07 17:02:00 18 /min [facility] Body height 2024-01-07 17:02:00 165.1 cm [facility] Body weight 2024-01-07 17:02:00 122.471 kg [facility] BMI 2024-01-07 17:02:00 44.93 kg/m2 [facility] Systolic blood pressure 2024-01-03 17:27:00 111 mm[Hg] [facility] Diastolic blood pressure 2024-01-03 17:27:00 77 mm[Hg] [facility] Heart rate 2024-01-03 17:27:00 99 /min [facility] Body temperature 2024-01-03 17:27:00 36.5 Ava [facility] Respiratory rate 2024-01-03 17:27:00 18 /min [facility] Body height 2024-01-03 17:27:00 165.1 cm [facility] Body weight 2024-01-03 17:27:00 120.203 kg [facility] BMI 2024-01-03 17:27:00 44.10 kg/m2 [facility] Oxygen saturation in Arterial blood by Pulse oximetry 2024-01-03 17:27:00 99 /min [facility] Systolic blood pressure 2023-12-24 17:35:00 118 mm[Hg] [facility] Diastolic blood pressure 2023-12-24 17:35:00 80 mm[Hg] [facility] Heart rate 2023-12-24 17:35:00 90 /min [facility] Respiratory rate 2023-12-24 17:35:00 15 /min [facility] Oxygen saturation in Arterial blood by Pulse oximetry 2023-12-24 17:35:00 96 /min [facility] Body temperature 2023-12-24 17:05:00 36 Ava [facility] Body height 2023-12-24 16:37:00 165.1 cm [facility] Body weight 2023-12-24 16:37:00 122.154 kg [facility] BMI 2023-12-24 16:37:00 44.81 kg/m2 [facility] Systolic blood pressure 2023-12-24 17:05:00 100 mm[Hg] [facility] Diastolic blood pressure 2023-12-24 17:05:00 56 mm[Hg] [facility] Heart rate 2023-12-24 17:05:00 89 /min [facility] Body temperature 2023-12-24 17:05:00 36 Ava [facility] Respiratory rate 2023-12-24 17:05:00 16 /min [facility] Oxygen saturation in Arterial blood by Pulse oximetry 2023-12-24 17:05:00 94 /min [facility] Body height 2023-12-24 16:37:00 165.1 cm [facility] Body weight 2023-12-24 16:37:[address] [facility] BMI 2023-12-24 16:37:00 44.81 [facility]/m2 [facility] Sy[facility] 2023-11-27 19:10:00 111 mm[Hg] [facility] Diastolic blood pressure 2023-11-27 19:10:00 76 mm[Hg] [facility] Heart rate 2023-11-27 19:10:00 111 /min [facility] Res[facility] rate 2023-11-27 19:10:00 18 /min [facility] Body height 2023-11-27 19:10:00 165.1 cm [facility] Body weight 2023-11-27 19:10:[address] [facility] BMI 2023-11-27 19:10:00 45.60 kg/m2 [facility] Systolic blood pressure 2023-11-26 20:40:00 112 mm[Hg] [facility] Diastolic blood pressure 2023-11-26 20:40:00 74 mm[Hg] [facility] Heart rate 2023-11-26 20:40:00 103 /min [facility] Body temperature 2023-11-26 20:40:00 36.39 Ava [facility] Body height 2023-11-26 20:40:00 165.1 cm [facility] Body weight 2023-11-26 20:40:[address] [facility] BMI 2023-11-26 20:40:00 45.46 kg/m2 [facility] Systolic blood pressure 2023-11-22 18:07:00 134 mm[Hg] [facility] Diastolic blood pressure 2023-11-22 18:07:00 89 mm[Hg] [facility] Heart rate 2023-11-22 18:07:00 126 /min [facility] Body temperature 2023-11-22 18:07:00 36.28 Ava [facility] Respiratory rate 2023-11-22 18:07:00 18 /min [facility] Body height 2023-11-22 18:07:[address] [facility] Body weight 2023-11-22 18:07:00 125.102 kg [facility] BMI 2023-11-22 18:07:00 45.90 kg/m2 [facility] Oxygen saturation in Arterial blood by Pulse oximetry 2023-11-22 18:07:00 98 /min [facility] Systolic blood pressure 2023-11-19 14:38:00 127 mm[Hg] [facility] Diastolic blood pressure 2023-11-19 14:38:00 86 mm[Hg] [facility] Heart rate 2023-11-19 14:38:00 107 /min [facility] Body temperature 2023-11-19 14:38:00 36.33 Ava [facility] Respiratory rate 2023-11-19 14:38:00 18 /min [facility] Body height 2023-11-19 14:38:[address] [facility] Body weight 2023-11-19 14:38:00 123.741 kg [facility] BMI 2023-11-19 14:38:00 45.40 kg/m2 [facility] Oxygen saturation in Arterial blood by Pulse oximetry 2023-11-19 14:38:00 98 /min [facility] Systolic blood pressure 2023-11-18 16:30:00 156 mm[Hg] [facility] Diastolic blood pressure 2023-11-18 16:30:00 113 mm[Hg] [facility] Heart rate 2023-11-18 16:30:00 88 /min [facility] Respiratory rate 2023-11-18 16:30:00 18 /min [facility] Oxygen saturation in Arterial blood by Pulse oximetry 2023-11-18 16:30:00 98 /min [facility] Body temperature 2023-11-18 10:28:00 36.72 Ava [facility] Body height 2023-11-18 10:27:00 [facility].1 cm [facility] Body weight 2023-11-18 10:27:00 122.471 kg [facility] BMI 2023-11-18 10:27:00 44.93 kg/m2 [facility] Systolic blood pressure 2023-11-08 20:00:00 123 mm[Hg] [facility] Diastolic blood pressure 2023-11-08 20:00:00 91 mm[Hg] [facility] Respiratory rate 2023-11-08 20:00:00 17 /min [facility] Heart rate 2023-11-08 19:00:00 75 /min [facility] Oxygen saturation in Arterial blood by Pulse oximetry 2023-11-08 19:00:00 100 /min [facility] Body temperature 2023-11-08 17:00:00 36.83 Ava [facility] Body height 2023-11-08 15:16:00 165.1 cm [facility] Body weight 2023-11-08 15:16:00 122.471 kg [facility] BMI 2023-11-08 15:16:00 44.93 kg/m2 [facility] Systolic blood pressure 2023-08-06 19:07:00 135 mm[Hg] [facility] Diastolic blood pressure 2023-08-06 19:07:00 93 mm[Hg] [facility] Heart rate 2023-08-06 19:04:00 81 /min [facility] Body temperature 2023-08-06 19:04:00 36.11 Ava [facility] Respiratory rate 2023-08-06 19:04:00 18 /min [facility] Body height 2023-08-06 19:04:[address] [facility] Body weight 2023-08-06 19:04:00 140.66 kg [facility] BMI 2023-08-06 19:04:00 51.60 kg/m2 [facility] Oxygen saturation in Arterial blood by Pulse oximetry 2023-08-06 19:04:00 100 /min [facility] Systolic blood pressure 2023-06-21 16:24:00 156 mm[Hg] [facility] Diastolic blood pressure 2023-06-21 16:24:00 98 mm[Hg] [facility] Heart rate 2023-06-21 16:24:00 94 /min [facility] Body temperature 2023-06-21 16:24:00 37.22 Ava [facility] Respiratory rate 2023-06-21 16:24:00 16 /min [facility] Body height 2023-06-21 16:24:[address] [facility] Body weight 2023-06-21 16:24:[address] [facility] BMI 2023-06-21 16:24:00 46.59 kg/m2 [facility] Oxygen saturation in Arterial blood by Pulse oximetry 2023-06-21 16:24:00 100 /min [facility] Systolic blood pressure 2023-01-24 20:58:00 132 mm[Hg] [facility] Diastolic blood pressure 2023-01-24 20:58:00 96 mm[Hg] [facility] Heart rate 2023-01-24 20:56:00 95 /min [facility] Body temperature 2023-01-24 20:56:00 36.67 Ava [facility] Respiratory rate 2023-01-24 20:56:00 18 /min [facility] Body height 2023-01-24 20:56:[address] [facility] Body weight 2023-01-24 20:56:[address] [facility] BMI 2023-01-24 20:56:00 50.97 kg/m2 [facility] Oxygen saturation in Arterial blood by Pulse oximetry 2023-01-24 20:56:00 100 /min [facility] Systolic blood pressure 2022-12-25 19:43:00 131 mm[Hg] [facility] Diastolic blood pressure 2022-12-25 19:43:00 86 mm[Hg] [facility] Heart rate 2022-12-25 19:43:00 72 /min [facility] Body temperature 2022-12-25 19:43:00 36.28 Ava [facility] Respiratory rate 2022-12-25 19:43:00 16 /min [facility] Body height 2022-12-25 19:43:[address] [facility] Body weight 2022-12-25 19:43:[address] [facility] BMI 2022-12-25 19:43:00 50.75 kg/m2 [facility] Oxygen saturation in Arterial blood by Pulse oximetry 2022-12-25 19:43:00 99 /min [facility] Systolic blood pressure 2022-01-20 20:03:00 135 mm[Hg] [facility] Diastolic blood pressure 2022-01-20 20:03:00 87 mm[Hg] [facility] Heart rate 2022-01-20 20:03:00 87 /min [facility] Body temperature 2022-01-20 20:03:00 36.56 Ava [facility] Respiratory rate 2022-01-20 20:03:00 17 /min [facility] Body height 2022-01-20 20:03:[address] [facility] Body weight 2022-01-20 20:03:[address] [facility] BMI 2022-01-20 20:03:00 43.55 kg/m2 [facility] Systolic blood pressure 2021-12-22 13:14:00 125 mm[Hg] [facility] Diastolic blood pressure 2021-12-22 13:14:00 86 mm[Hg] [facility] Heart rate 2021-12-22 13:14:00 96 /min [facility] Body temperature 2021-12-22 13:14:00 36.61 Ava [facility] Respiratory rate 2021-12-22 13:14:00 20 /min [facility] Body height 2021-12-22 13:14:[address] [facility] Body weight 2021-12-22 13:14:[address] [facility] BMI 2021-12-22 13:14:00 39.77 kg/m2 [facility] Systolic blood pressure 2021-11-29 12:00:00 142 mm[Hg] [facility] Diastolic blood pressure 2021-11-29 12:00:00 87 mm[Hg] [facility] Heart rate 2021-11-29 12:00:00 79 /min [facility] Body temperature 2021-11-29 12:00:00 36.72 Ava [facility] Respiratory rate 2021-11-29 12:00:00 18 /min [facility] Oxygen saturation in Arterial blood by Pulse oximetry 2021-11-29 12:00:00 100 /min [facility] Body height 2021-11-26 08:32:00 165.1 cm [facility] Body weight 2021-11-26 08:32:00 114.034 kg [facility] BMI 2021-11-26 08:32:00 41.84 kg/m2 [facility] Systolic blood pressure 2021-11-23 14:45:00 133 mm[Hg] [facility] Diastolic blood pressure 2021-11-23 14:45:00 102 mm[Hg] [facility] Heart rate 2021-11-23 14:42:00 77 /min [facility] Body temperature 2021-11-23 14:42:00 36.33 Ava [facility] Respiratory rate 2021-11-23 14:42:00 18 /min [facility] Body height 2021-11-23 14:42:00 165.1 cm [facility] Body weight 2021-11-23 14:42:00 114.17 kg [facility] BMI 2021-11-23 14:42:00 41.89 kg/m2 [facility] Systolic blood pressure 2021-11-11 15:03:00 120 mm[Hg] [facility] Diastolic blood pressure 2021-11-11 15:03:00 82 mm[Hg] [facility] Heart rate 2021-11-11 14:58:00 105 /min [facility] Body temperature 2021-11-11 14:57:00 36.33 Ava [facility] Respiratory rate 2021-11-11 14:57:00 18 /min [facility] Body height 2021-11-11 14:57:00 165.1 cm [facility] Body weight 2021-11-11 14:57:00 113.541 kg [facility] BMI 2021-11-11 14:57:00 41.65 kg/m2 [facility] Systolic blood pressure 2021-10-27 23:55:00 129 mm[Hg] [facility] Diastolic blood pressure 2021-10-27 23:55:00 76 mm[Hg] [facility] Heart rate 2021-10-27 23:55:00 88 /min [facility] Oxygen saturation in Arterial blood by Pulse oximetry 2021-10-27 23:55:00 96 /min [facility] Body temperature 2021-10-27 23:14:00 37 Ava [facility] Respiratory rate 2021-10-27 23:14:00 18 /min [facility] Body height 2021-10-27 22:26:00 165.1 cm [facility] Body weight 2021-10-27 22:26:00 111.131 kg [facility] BMI 2021-10-27 22:26:00 40.77 kg/m2 [facility] Systolic blood pressure 2021-10-27 18:08:00 140 mm[Hg] [facility] Diastolic blood pressure 2021-10-27 18:08:00 94 mm[Hg] [facility] Heart rate 2021-10-27 18:07:00 88 /min [facility] Body temperature 2021-10-27 18:07:00 35.61 Ava [facility] Respiratory rate 2021-10-27 18:07:00 18 /min [facility] Body weight 2021-10-27 18:07:00 110.224 kg [facility] BMI 2021-10-27 18:07:00 40.44 kg/m2 [facility] Procedures Procedure Date / Time Performed Performing Clinician Source CT ABDOMEN PELVIS W CONTRAST 2024-02-22 07:32:12 Shorty Zambrano [facility] POCT TEST 2024-02-22 06:51:00 Shorty Zambrano [facility] URINALYSIS 2024-02-22 06:48:00 Shorty Zambrano [facility] LIPASE 2024-02-22 06:08:00 Shorty Zambrano [facility] COMP. METABOLIC PANEL ([id number]) 2024-02-22 06:08:00 Shorty Zambrano [facility] CBC WITH DIFF 2024-02-22 06:08:00 Shorty Zambrano [facility] POCT TEST 2024-01-29 16:18:00 Gianni Lopez [facility] POCT TEST 2024-01-29 16:18:00 Gianni Lopez [facility] [id number] - [place] LAPAROSCOPY SURG CHOLECYSTECTOMY 2024-01-29 16:15:00 Eva Bryan [facility] POCT TEST 2024-01-12 10:32:00 Caro Bauer [facility] LIPASE 2024-01-12 10:06:00 Caro Bauer [facility] COMP. METABOLIC PANEL ([id number]) 2024-01-12 10:06:00 Caro Bauer [facility] CBC WITH DIFF 2024-01-12 10:06:00 Caro Bauer [facility] EGD (ENDO) 2023-12-24 17:08:17 Obi-Franklin [facility] EGD (ENDO) 2023-12-24 17:08:17 Jeimy [facility] SURGICAL PATHOLOGY EXAM 2023-12-24 16:57:00 Yisel [...] [facility] COMP. METABOLIC PANEL ([id number]) 2023-11-18 11:10:00 Caro Bauer [facility] CBC WITH DIFF 2023-11-18 11:10:00 Caro Bauer [facility] COMP. METABOLIC PANEL ([id number]) 2023-11-08 16:43:00 Maame [facility] LIPASE 2023-11-08 16:01:00 Maame [facility] CBC WITH DIFF 2023-11-08 16:01:00 Maame [facility] URINALYSIS 2023-11-08 16:01:00 Maame [facility] POCT TEST 2023-11-08 16:01:00 Maame [facility] ZINC, SERUM 2023-08-06 19:42:00 Rodrigoi-Franklin [facility] VITAMIN B6, PLASMA 2023-08-06 19:42:00 Jeimy [facility] FREE T4 2023-08-06 19:42:00 Rodrigoi-Franklin [facility] THYROID STIMULATING HORMONE 2023-08-06 19:42:00 Arun-Franklin [facility] COMP. METABOLIC PANEL ([id number]) 2023-08-06 19:42:00 Arun-Franklin [facility] CBC WITH DIFF 2023-08-06 19:42:00 Obi-Franklin [facility] GLYCOSYLATED HEMOGLOBIN (A1C) 2023-08-06 19:42:00 Obi-Franklin [facility] VITAMIN D, 25-OH 2023-08-06 19:42:00 Obi-Franklin [facility] FREE T3 2023-08-06 19:42:00 Obi-Franklin [facility] POCT TEST 2023-06-21 16:30:00 Bonita Trivedi [facility] URINALYSIS 2023-06-21 16:29:00 Bonita Trivedi [facility] INSURANCE CORRESPONDENCE 2023-01-15 06:01:00 Doctor Unassigned, Colp [facility] INSURANCE CORRESPONDENCE 2023-01-06 06:01:00 Doctor Unassigned, Colp [facility] GARDASIL 9 (HPV 9V) VACCINE 2022-12-25 20:04:37 Obi-Franklin [facility] POCT TEST 2022-01-20 20:18:00 Jacinta Voss [facility] DME/SUPPLY JUSTIFICATION 2022-01-03 06:01:00 Doctor Unassigned, Colp [facility] COMP. METABOLIC PANEL ([id number]) 2021-11-26 09:29:00 Adum, [facility] Cowan [facility] - RPR 2021-11-26 09:29:00 Adum, Vanessa Camryn [facility] HIV 1/2 AG-AB WITH REFLEX 2021-11-26 09:29:00 Adum, Vanessa Camryn [facility] CONSENT/REFUSAL FOR DIAGNOSI S AND TREATMENT 2021-11-26 08:08:59 Doctor Unassigned, Colp [facility] POCT URINALYSIS 2021-11-23 14:56:00 Rodrick Pete [facility] POCT URINALYSIS 2021-11-11 14:58:00 Rodrick Pete [facility] CONSENT/REFUSAL FOR DIAGNOSI S AND TREATMENT 2021-10-27 22:13:12 Doctor Unassigned, Colp [facility] POCT URINALYSIS 2021-10-27 18:21:00 Rodrick Pete [facility] Encounters Start Date/Time End Date/Time Encounter Type Admission Type Attending [facility] Facility Care Department Encounter ID Source 2024-02-27 10:40:00 2024-02-27 10:40:00 Outpatient R JESS MUNSON [facility] [id number] [facility] 2024-02-22 00:00:00 2024-02-22 13:47:53 Telephone [facility] Munson [facility] 1.2.840.114 350.1.13.10 4.2.7.2.686 [id number] [facility] 2024-02-21 23:55:00 2024-02-22 02:59:00 Emergency SHORTY MATA ERICCA FLNEWTON ERT [id number] [facility] 2024-02-21 23:55:00 2024-02-22 02:59:00 Emergency Shorty Zambrano [facility] ..840.114 350.1.13.10 4.2.7.2.686 [id number] [facility] 2024-02-21 00:00:00 2024-02-21 08:19:30 [facility] 1.2.840.114 350.1.13.10 4.2.7.2.686 [id number] [facility] 2024-02-11 00:00:00 2024-02-13 09:13:13 Telephone Eva Bryan [facility] 1.2.840.114 350.1.13.10 4.2.7.2.686 [id number] [facility] 2024-02-11 00:00:00 2024-02-11 13:15:26 Patient Secure Msg Eva Bryan [facility] 1.2.840.114 350.1.13.10 4.2.7.2.686 [id number] [facility] 2024-02-11 00:00:00 2024-02-11 12:46:06 [facility] 1.2.840.114 350.1.13.10 4.2.7.2.686 [id number] 044 [id number] [facility] 2024-02-08 00:00:00 2024-02-08 14:40:57 Telephone Eva Bryan [facility] 1.2.840.114 350.1.13.10 4.2.7.2.686 [id number] [facility] 2024-02-07 00:00:00 2024-02-08 14:24:51 Patient Secure MsEva Mclaughlin [facility] 1.2.840.114 350.1.13.10 4.2.7.2.686 [id number] [facility] 2024-01-30 00:00:00 2024-01-31 08:09:51 Telephone Bryan, Eva [facility] 1.2.840.114 350.1.13.10 4.2.7.2.686 [id number] [facility] 2024-01-29 08:46:00 2024-01-29 14:10:00 Outpatient R EVA BRYAN [facility] [id number] [facility] 2024-01-29 08:46:00 2024-01-29 14:10:00 Hospital Encounter Eva Bryan [facility] 1.2.840.114 350.1.13.10 4.2.7.2.686 [id number] [facility] 2024-01-29 10:00:00 2024-01-29 12:35:00 Surgery Eva Bryan [facility] 1.2.840.114 350.1.13.10 4.2.7.2.686 [id number] [facility] 2024-01-25 00:00:00 2024-01-28 13:50:46 Refill Jess Munson [facility] 1.2.840.114 350.1.13.10 4.2.7.2.686 [id number] [facility] 2024-01-12 03:54:00 2024-01-12 05:48:00 Emergency X CARO BAUER WAKILI [facility] ERT [id number] [facility] 2024-01-12 03:54:00 2024-01-12 05:48:00 Emergency Caro Bauer [facility] 1.2.840.114 350.1.13.10 4.2.7.2.686 [id number] [facility] 2024-01-11 00:00:00 2024-01-11 12:50:05 Patient Secure Msg Obi-Franklin , [facility] 1.2.840.114 350.1.13.10 4.2.7.2.686 [id number] [facility] 2024-01-10 00:00:00 2024-01-11 05:46:35 Patient Secure M[facility] 1.2.840.114 350.1.13.10 4.2.7.2.686 [id number] 044 [id number] [facility] 2024-01-07 11:15:00 2024-01-07 12:06:32 Outpatient R EVA BRYAN [facility] [id number] [facility] 2024-01-07 11:15:00 2024-01-07 12:06:32 Office Visit Eva Bryan [facility] NAL BUILD[facility] 1.2.840.114 350.1.13.10 4.2.7.2.686 [id number] [facility] 2023-11-30 00:00:00 2024-01-05 18:24:03 Patient Secure Msg Obi-Franklin [facility]IO NAL BUILDING 1.2.840.114 350.1.13.10 4.2.7.2.686 [id number] [id number] [facility] 2024-01-03 11:00:00 2024-01-03 11:41:02 Outpatient R OBI-FRANKLIN , JESS OBI-FRANKLIN , [facility] [id number] [facility] 2024-01-03 11:00:00 2024-01-03 11:41:02 [facility] 1.2.840.114 350.1.13.10 4.2.7.2.686 [id number] 044 [id number] [facility] 2024-01-02 00:00:00 2024-01-02 08:01:22 [facility] 1.2.840.114 350.1.13.10 4.2.7.2.686 [id number] [id number] [facility] 2023-12-25 00:00:00 2023-12-27 05:31:52 [facility]ill [facility] 1.2.840.114 350.1.13.10 4.2.7.2.686 [id number] [id number] [facility] 2023-12-25 00:00:00 2023-12-25 12:23:25 Refill Yann Nayak [facility] 1.2.840.114 350.1.13.10 4.2.7.2.686 [id number] [facility] 2023-12-24 00:00:00 2023-12-24 16:00:22 Patient Secure Yisel Manzanares [facility] ([facility]) 1.2.840.114 350.1.13.10 4.2.7.2.686 [id number] [facility] 2023-12-24 09:50:00 2023-12-24 11:47:00 Outpatient YISEL GONZALEZ [facility] [id number] [facility] 2023-12-24 09:50:00 2023-12-24 11:47:00 Hospital Encounter Yisel Hart [facility] 1.2.840.114 350.1.13.10 4.2.7.2.686 [id number] [facility] 2023-12-24 10:45:00 2023-12-24 11:15:00 Surgery Yisel Hart [facility] 1.840.114 350.1.13.10 4.2.7.2.686 [id number] [facility] 2023-12-18 14:30:00 2023-12-18 14:30:00 Outpatient R KONRAD ORDOÑEZ, [facility] [id number] [facility] 2023-12-18 13:00:00 2023-12-18 13:00:00 Outpatient R OBI-FRANKLIN , JESS OBI-FRANKLIN , [facility] [id number] [facility] 2023-12-17 00:00:00 2023-12-18 11:14:39 Telephone Obi-Franklin , [facility] 1..840.114 350.1.13.10 4.2.7.2.686 [id number] [facility] 2023-12-12 08:40:00 2023-12-12 08:40:00 Outpatient R OBI-FRANKLIN , JESS OBI-FRANKLIN , [facility] [id number] [facility] 2023-12-07 00:00:00 2023-12-10 08:32:14 Refill Konrad Ordoñez [facility] 1.2.840.114 350.1.13.10 4.2.7.2.686 [id number] [facility] 2023-11-30 00:00:00 2023-12-04 09:32:31 Patient Secure Msg Tianna Mei [facility] ([facility]) 1.2840.114 350.1.13.10 4.2.7.2.686 [id number] [facility] 2023-11-30 15:45:00 2023-11-30 15:45:00 Outpatient R ISAAC SHAY [facility] [id number] [facility] 2023-11-27 14:00:00 2023-11-27 14:37:01 Outpatient R VANESSA LEYVA VIVIAN [facility] [id number] [facility] 2023-11-27 14:00:00 2023-11-27 14:37:01 Office Visit Vanessa Leyva [facility] 1.2840.114 350.1.13.10 4.2.7.2.686 [id number] [facility] 2023-11-26 15:00:00 2023-11-26 15:30:00 Office Visit Jose De Jesus Med[facility] 1.2.840.114 350.1.13.10 4.2.7.2.686 [id number] [facility] 2023-11-26 15:00:00 2023-11-26 15:00:00 Outpatient R JOSE DE JESUS MEDINA VIEN [facility] [id number] [facility] 2023-11-22 13:00:00 2023-11-22 13:30:00 Office Visit Tianna Mei [facility] ([facility]) 1.284.114 350.1.13.10 4.2.7.2.686 [id number] [facility] 2023-11-22 13:00:00 2023-11-22 13:00:00 Outpatient R TIANNA MEI ASHLEY [facility] [id number] [facility] 2023-11-20 10:00:00 2023-11-20 10:00:00 Outpatient R [facility] [id number] [facility] 2023-11-19 10:30:00 2023-11-19 10:30:00 Director Of Adult Epilepsy Visit 2, Adc Lab Jess Munson 2, Adc Lab [facility] 1.2.840.114 350.1.13.10 4.2.7.2.686 [id number] [facility] 2023-11-19 09:40:00 2023-11-19 10:03:53 Outpatient R OBJESS GRIMALDO [facility] [id number] [facility] 2023-11-19 09:40:00 2023-11-19 10:03:53 Office Visit Jess Munson [facility] 1.2.840.114 350.1.13.10 4.2.7.2.686 [id number] [facility] 2023-11-15 00:00:00 2023-11-18 18:57:29 [facility] 1.2.840.114 350.1.13.10 4.2.7.2.686 [id number] [id number] [facility] 2023-11-16 00:00:00 2023-11-18 18:53:00 [facility]ill [facility] 1.2.840.114 350.1.13.10 4.2.7.2.686 [id number] [id number] [facility] 2023-11-18 05:34:00 2023-11-18 13:08:00 Emergency KELLY CUEVAS, KELLY [facility] ERT [id number] [facility] 2023-11-18 05:34:00 2023-11-18 13:08:00 Emergency Caro Bauer Robert Lee [facility] 1.2.840.114 350.1.13.10 4.2.7.2.686 [id number] [facility] 2023-11-08 10:16:00 2023-11-08 16:16:00 Emergency TIFF VILLAF[facility]ER[facility] E[facility] [id number] [facility] 2023-11-08 10:16:00 2023-11-08 16:16:00 Emergency Tiff Isabel [facility] 1.2.840.114 350.1.13.10 4.2.7.2.686 [id number] [facility] 2023-10-16 00:00:00 2023-10-19 05:44:04 Refill Obsuzanne-Franklin [facility] 1.2.840.114 350.1.13.10 4.2.7.2.686 [id number] [id number] [facility] 2023-10-15 00:00:00 2023-10-16 10:48:03 Refill [facility] 1.2.840.114 350.1.13.10 4.2.7.2.686 [id number] [id number] [facility] 2023 09:40:00 2023 09:40:00 Outpatient R OBSuzanne-JESS REID OBSuzanne-FRANKLIN [facility] [id number] [facility] 2023-10-01 00:00:00 2023-10-03 15:28:49 Refill [facility] 1..840.114 350.1.13.10 4.2.7.2.686 [id number] [facility] 2023-09-12 00:00:00 2023-09-13 13:09:32 Ref[facility] 1.2840.114 350.1.13.10 4.2.7.2.686 [id number] [facility] 2023-09-05 10:40:00 2023-09-05 10:40:00 Outpatient R OBI-FRANKLIN JESS OBI-FRANKLIN , [facility] [id number] [facility] 2023-08-13 14:40:00 2023-08-13 14:40:00 Outpatient R OBI-FRANKLIN JESS OBI-FRANKLIN , [facility] [id number] [facility] 2023-08-06 14:30:00 2023-08-06 15:25:53 Director Of Adult Epilepsy Visit 2, Adc Lab Jeimy [facility] 1..840.114 350.1.13.10 4.2.7.2.686 [id number] [facility] 2023-08-06 14:30:00 2023-08-06 14:30:00 Outpatient R OBI-FRANKLIN JESS OBI-FRANKLIN [facility] [id number] [facility] 2023-08-06 13:40:00 2023-08-06 14:29:31 [facility] 1.2.840.114 350.1.13.10 4.2.7.2.686 [id number] [id number] [facility] 2023-08-06 08:40:00 2023-08-06 08:40:00 Outpatient R OBI-JESS REID OBI[facility]FRANKLIN , [facility] [id number] [facility] 2023-07-31 00:00:00 2023-08-01 12:29:54 Telephone Konrad Ordoñez [facility] NAL BUILD[facility] 1.2.840.114 350.1.13.10 4.2.7.2.686 [id number] [facility] 2023-07-31 00:00:00 2023-07-31 18:10:27 Refill Obi-Franklin [facility] NAL BUILDING 1.2.840.114 350.1.13.10 4.2.7.2.686 [id number] [facility] 2023-07-30 00:00:00 2023-07-31 09:10:12 Patient Secure Msg Obi-Franklin , [facility] NAL BUILDING 1.2.840.114 350.1.13.10 4.2.7.2.686 [id number] [facility] 2023-07-25 00:00:00 2023-07-25 09:15:22 Refill Obi-Franklin [facility] NAL BUILDING 1.2.840.114 350.1.13.10 4.2.7.2.686 [id number] [id number] [facility] 2023-05-29 00:00:00 2023-06-30 18:07:42 Patient Secure Msg Obi-Franklin [facility] NAL BUILDING 1.2.840.114 350.1.13.10 4.2.7.2.686 [id number] [facility] 2023-06-21 11:31:00 2023-06-21 12:29:00 Emergency X BONITA TRIVEDI [facility] ERT [id number] [facility] 2023-06-21 11:31:00 2023-06-21 12:29:00 Emergency Bonita Trivedi [facility] 1.2.840.114 350.1.13.10 4.2.7.2.686 [id number] [facility] 2023-06-18 08:40:00 2023-06-18 08:40:00 Outpatient R OBI-FRANKLIN , JESS OBI[facility]FRANKLIN [facility] [id number] [facility] 2023-06-12 00:00:00 2023-06-12 00:00:00 Patient Secure Msg Obi-[place]lin , [facility] BU[facility] 1.2.840.114 350.1.13.10 4.2.7.2.686 [id number] [facility] 2023-06-06 13:00:00 2023-06-06 13:00:00 Outpatient R OBI-FRANKLIN , JESS OBI-FRANKLIN , [facility] [id number] [facility] 2023-05-29 00:00:00 2023-05-29 00:00:00 Refill Obi[facility] , [facility] 1.2.840.114 350.1.13.10 4.2.7.2.686 [id number] [facility] 2023-04-25 15:00:00 2023-04-25 15:00:00 Outpatient R OBI-FRANKLIN , JESS OBI-FRANKLIN , JESS [facility] [id number] [facility] 2023-04-23 00:00:00 2023-04-23 00:00:00 Refill Obsuzanne-Franklin [facility] PROFESSIO NAL BUILDING 1.2.840.114 350.1.13.10 4.2.7.2.686 [id number] [id number] [facility] 2023-04-11 00:00:00 2023-04-11 00:00:00 Refill Obi-Franklin [facility] NAL BUILDING 1.2.840.114 350.1.13.10 4.2.7.2.686 [id number] [facility] 2023-04-05 00:00:00 2023-04-05 00:00:00 [facility] 1.2.840.114 350.1.13.10 4.2.7.2.686 [id number] [id number] [facility] 2023-04-03 00:00:00 2023-04-03 00:00:00 Telephone AlfredowindyCarlos [facility] 1.2.840.114 350.1.13.10 4.2.7.2.686 [id number] [facility] 2023-04-03 00:00:00 2023-04-03 00:00:00 Patient Secure Msg Obsuzanne-[facility] 1.2.840.114 350.1.13.10 4.2.7.2.686 [id number] 044 [id number] [facility] 2023-04-01 00:00:00 2023-04-01 00:00:00 Refill Arun[facility] 1.2.840.114 350.1.13.10 4.2.7.2.686 [id number] [id number] [facility] 2023-03-02 00:00:00 2023-03-02 00:00:00 Refill [facility] 1.2.840.114 350.1.13.10 4.2.7.2.686 [id number] 044 [id number] [facility] 2023-02-19 00:00:00 2023-02-19 00:00:00 Refill Obi[facility] 1.2840.114 350.1.13.10 4.2.7.2.686 [id number] [id number] [facility] 2023-01-26 00:00:00 2023-01-26 00:00:00 Patient Secure Msg Doctor Unassigned, Colp [facility] 1.2840.114 350.1.13.10 4.2.7.2.686 [id number] 044 [id number] [facility] 2023-01-24 15:00:00 2023-01-24 15:25:03 Outpatient R OBI-FRANKLIN JESS [facility] [id number] [facility] 2023-01-24 15:00:00 2023-01-24 15:25:03 Office Visit Obi-Franklin Jess [facility] 1.2840.114 350.1.13.10 4.2.7.2.686 [id number] 044 [id number] [facility] 2023-01-16 00:00:00 2023-01-16 00:00:00 [facility] 1.2.840.114 350.1.13.10 4.2.7.2.686 [id number] 044 [id number] [facility] 2023-01-15 00:00:00 2023-01-15 00:00:00 Orders Only Doctor Unassigned, Colp [facility] 1.2.840.114 350.1.13.10 4.2.7.2.686 [id number] [facility] 2023-01-15 00:00:00 2023-01-15 00:00:00 Patient Secure Msg Doctor Unassigned, Colp [facility] 1.2.840.114 350.1.13.10 4.2.7.2.686 [id number] 044 [id number] [facility] 2023-01-08 00:00:00 2023-01-08 00:00:00 Telephone [facility] 1.2.840.114 350.1.13.10 4.2.7.2.686 [id number] 044 [id number] [facility] 2023-01-06 00:00:00 2023-01-06 00:00:00 Orders Only Doctor Unassigned, Colp [facility] 1.2.840.114 350.1.13.10 4.2.7.2.686 [id number] [id number] [facility] 2023-01-05 00:00:00 2023-01-05 00:00:00 Telephone [facility] 1.2.840.114 350.1.13.10 4.2.7.2.686 [id number] 044 [id number] [facility] 2023-01-03 00:00:00 2023-01-03 00:00:00 Telephone [employer] [facility] 1.2.840.114 350.1.13.10 4.2.7.2.686 [id number] 044 [id number] [facility] 2023-01-01 00:00:00 2023-01-01 00:00:00 Patient Secure Msg Doctor Unassigned, Colp [facility] 1.2.840.114 350.1.13.10 4.2.7.2.686 [id number] 044 [id number] [facility] 2022-12-28 00:00:00 2022-12-28 00:00:00 Patient Secure Msg Arun-Franklin [facility] 1.2.840.114 350.1.13.10 4.2.7.2.686 [id number] [id number] [facility] 2022-12-26 00:00:00 2022-12-26 00:00:00 Telephone Jeimy [facility] 1.2.840.114 350.1.13.10 4.2.7.2.686 [id number] 044 [id number] [facility] 2022-12-25 14:45:00 2022-12-25 15:00:00 Director Of Adult Epilepsy Visit 2, Adc Lab Arun-Franklin [facility] 1.2.840.114 350.1.13.10 4.2.7.2.686 [id number] [facility] 2022-12-25 14:00:00 2022-12-25 14:14:40 Outpatient R OBSuzanne-JESS REID [facility] [id number] [facility] 2022-12-25 14:00:00 2022-12-25 14:14:40 Office Visit Jeimy [facility] 1.2.840.114 350.1.13.10 4.2.7.2.686 [id number] 044 [id number] [facility] 2022-12-19 10:00:00 2022-12-19 10:00:00 Outpatient R OBI-FRANKLIN JESS OBI-FRANKLIN JESS [facility] [id number] [facility] 2022-07-19 15:30:00 2022-07-19 15:30:00 Outpatient R KAMILA MILAN [facility] [id number] [facility] 2022-04-14 10:00:00 2022-04-14 10:00:00 Outpatient R [facility] [id number] [facility] 2022-01-20 13:00:00 2022-01-20 14:43:14 Outpatient JACINTA DAVIES [facility] [id number] [facility] 2022-01-20 13:00:00 2022-01-20 14:43:14 Office Visit Provider, Meche Harvey Brenda A [facility] 1.0.114 350.1.13.10 4.2.7.2.686 [id number] 107 [id number] [facility] 2022-01-16 10:45:00 2022-01-16 10:45:00 Outpatient MECHE SEGURA [facility] [id number] [facility] 2022-01-05 00:00:00 2022-01-05 00:00:00 Encounter 1.2.840.1 06850.1.1 3.104.2.7 .[id number] 1.2.840.114 350.1.13.10 4.2.7.2.696 [id number] [facility] 2022-01-03 00:00:00 2022-01-03 00:00:00 Orders Only Doctor Unassigned, Colp [facility] 1.2840.114 350.1.13.10 4.2.7.2.686 [id number] [id number] [facility] 2021-12-29 00:00:00 2021-12-29 00:00:00 Patient Secure Msg PeteRodrick [facility] PROFESSION[facility] 1.840.114 350.1.13.10 4.2.7.2.686 [id number] 107 [id number] [facility] 2021-12-22 07:45:00 2021-12-22 08:42:11 Outpatient R JACINTA VOSS [facility] [id number] [facility] 2021-12-22 07:45:00 2021-12-22 08:42:11 Routine Visit Provider, JuliachJacinta Mathews [facility] [employer] [employer] [facility]ILD [facility] 1.840.114 350.1.13.10 4.2.7.2.686 [id number] 107 [id number] [facility] 2021-12-03 00:00:00 2021-12-03 00:00:00 Patient Secure Msg Doctor Unassigned, Colp [facility] 1.84.114 350.1.13.10 4.2.7.2.686 [id number] [facility] 2021-11-30 00:00:00 2021-11-30 00:00:00 Patient Secure Msg PeteRodrick [facility] [employer] [facility]ILD [facility] 1.84.114 350.1.13.10 4.2.7.2.686 [id number] 107 [id number] [facility] 2021-11-26 03:26:00 2021-11-29 10:05:00 Inpatient P VANESSA LEYVA [facility] [id number] [facility] 2021-11-26 03:26:00 2021-11-29 10:05:00 Hospital Encounter Vanessa Leyva [facility] 1.2.840.114 350.1.13.10 4.2.7.2.686 [id number] 083 [id number] [facility] 2021-11-26 15:34:00 2021-11-27 08:48:00 Anesthesia Event Wilver Owens [facility] 1.2.840.114 350.1.13.10 4.2.7.2.686 [id number] 083 [id number] [facility] 2021-11-26 10:17:37 2021-11-26 10:17:37 Anesthesia Event Wilver Owens [facility] 1.2.840.114 350.1.13.10 4.2.7.2.686 [id number] 083 [id number] [facility] 2021-11-23 09:45:00 2021-11-23 10:25:58 Outpatient LOVE SANTA EMILY [facility] [id number] [facility] 2021-11-23 09:45:00 2021-11-23 10:25:58 Routine [facility] Rodrick Norton Emily J. [facility] PROF[facility] [employer] [facility] 1.2.840.114 350.1.13.10 4.2.7.2.686 [id number] 107 [id number] [facility] 2021-11-11 09:45:00 2021-11-11 10:12:23 Routine Visit Rodrick Pete [facility] PROF[facility] [employer] [facility] MATERNAL & CHILD [facility] 1.2.840.114 350.1.13.10 4.2.7.2.686 [id number] 107 [id number] [facility] 2021-11-11 09:45:00 2021-11-11 10:12:23 Outpatient RODRICK DENNIS [facility] [id number] [facility] 2021-11-11 00:00:00 2021-11-11 00:00:00 Patient Secure Msg Rodrick Pete [facility] PROF[facility] MATERNAL & CHILD [facility] 1.2.840.114 350.1.13.10 4.2.7.2.686 [id number] 107 [id number] [facility] 2021-11-09 00:00:00 2021-11-09 00:00:00 Telephone Rodrick Pete [facility] [employer] [employer] [facility] 1.2840.114 350.1.13.10 4.2.7.2.686 [id number] 107 [id number] [facility] 2021-11-07 00:00:00 2021-11-07 00:00:00 Refill Rodrick Pete [facility] [employer] [facility] 1.2840.114 350.1.13.10 4.2.7.2.686 [id number] 107 [id number] [facility] 2021-10-27 17:35:00 2021-10-27 19:05:00 Outpatient X BRENDA VELÁSQUEZ [facility] [id number] [facility] 2021-10-27 17:35:00 2021-10-27 19:05:00 Emergency Brenda Velásquez K Paige [facility] 1.840.114 350.1.13.10 4.2.7.2.686 [id number] [id number] [facility] 2021-10-27 12:45:00 2021-10-27 13:34:39 Outpatient R RODRICK PETE [facility] [id number] [facility] 2021-10-27 12:45:00 2021-10-27 13:34:39 Routine Visit Rodrick Pete [facility] PROFESSION[facility] [employer] [facility] 1.840.114 350.1.13.10 4.2.7.2.686 [id number] 107 [id number] [facility] 2021-10-27 12:45:00 2021-10-27 12:45:00 Outpatient R RODRICK PETE [facility] [id number] [facility] 2021-10-27 00:00:00 2021-10-27 00:00:00 Orders Only Doctor Unassigned, Colp [facility] 1..114 350.1.13.10 4.2.7.2.686 [id number] [facility] 2021-10-26 00:00:00 2021-10-26 00:00:00 Abstract Rodrick Pete [facility] PROFESSIONAL [facility] [facility] MATERNAL & CHILD [facility] 1.840.114 350.1.13.10 4.2.7.2.686 [id number] [facility] 2021-10-21 09:45:00 2021-10-21 10:30:00 Director Of Adult Epilepsy Visit Ultrasound, Vinh Stone [facility] [employer] [facility] MATERNAL & CHILD [facility] 1.840.114 350.1.13.10 4.2.7.2.686 [id number] [facility] 2021-10-21 09:45:00 2021-10-21 09:45:00 [facility] [id number] [facility] 2021-10-18 00:00:00 2021-10-18 00:00:00 Patient Secure Msg Doctor Unassigned, Colp [facility] [employer] [facility] 1..114 350.1.13.10 4.2.7.2.686 [id number] 107 [id number] [facility] 2021-10-18 00:00:00 2021-10-18 00:00:00 Telephone Rodrick Pete [facility] PROFESSIONAL [facility] [employer] [facility] MATERNAL & CHILD [facility] 1.0.114 350.1.13.10 4.2.7.2.686 [id number] 107 [id number] [facility] 2021-10-14 08:00:00 2021-10-14 08:34:31 Outpatient R RODRICK PETE [facility] [id number] [facility] 2021-10-14 08:00:00 2021-10-14 08:34:31 Routine Visit Marie Petegloria [facility] PROFESSIONAL [employer] [facility] 1.0.114 350.1.13.10 4.2.7.2.686 [id number] 107 [id number] [facility] 2021-09-29 10:45:00 2021-09-29 11:39:29 Outpatient R YUSUF PETEELSA [facility] [id number] [facility] 2021-09-29 10:45:00 2021-09-29 11:39:29 Routine Visit Kiki Petecuauhtemoc [facility] PROFESSIONAL [facility] [facility] CHILD [facility] 1.0.114 350.1.13.10 4.2.7.2.686 [id number] 107 [id number] [facility] 2021-09-29 10:45:00 2021-09-29 10:45:00 Outpatient R RODRICK PETE [facility] [id number] [facility] 2021-09-16 00:00:00 2021-09-16 00:00:00 Patient Secure Msg Doctor Unassigned, Colp [facility] 1..114 350.1.13.10 4.2.7.2.686 [id number] [facility] 2021-09-16 00:00:00 2021-09-16 00:00:00 Telephone Kiki Petecuauhtemoc [facility] PROFESSIONAL [employer] [facility] 1.0.114 350.1.13.10 4.2.7.2.686 [id number] 107 [id number] [facility] 2021-09-16 00:00:00 2021-09-16 00:00:00 Telephone He Rodrick Mosquera [facility] PROFESSION[facility] [employer] [facility] 1.2.840.114 350.1.13.10 4.2.7.2.686 [id number] 107 [id number] [facility] 2021-09-15 10:45:00 2021-09-15 11:53:13 Outpatient R PETERODRICK [facility] [id number] [facility] 2021-09-15 10:45:00 2021-09-15 11:53:13 Routine Visit PeteRodrick [facility] PROFESSION[facility] [employer] [facility] 1..840.114 350.1.13.10 4.2.7.2.686 [id number] 107 [id number] [facility] 2021-09-13 00:00:00 2021-09-13 00:00:00 Refill He Rodrick [facility] PROFESSIONAL [employer] [facility] 1..840.114 350.1.13.10 4.2.7.2.686 [id number] 107 [id number] [facility] 2021-08-23 08:45:00 2021-08-23 22:46:00 Outpatient X BRENDA VELÁSQUEZ [facility] [id number] [facility] 2021-08-23 08:45:00 2021-08-23 22:46:00 Emergency Martinez, Ivanna Brenda Velásquez [facility] 1..840.114 350.1.13.10 4.2.7.2.686 [id number] [id number] [facility] 2021-08-18 10:30:00 2021-08-18 10:44:10 Outpatient R RODRICK PETE [facility] [id number] [facility] 2021-08-18 10:30:00 2021-08-18 10:44:10 Routine Visit Rodrick Pete [facility] PROFESSION[facility] [employer] [facility] 1.2.840.114 350.1.13.10 4.2.7.2.686 [id number] 107 [id number] [facility] 2021-08-11 00:00:00 2021-08-11 00:00:00 Patient Secure Msg Rodrick Pete [facility] PROFESSION[facility] [employer] [facility] 1.2.840.114 350.1.13.10 4.2.7.2.686 [id number] 107 [id number] [facility] 2021-08-11 00:00:00 2021-08-11 00:00:00 Refill Rodrick Pete [facility] PROFESSION[facility] [facility] CHILD [facility] 1.2.840.114 350.1.13.10 4.2.7.2.686 [id number] 107 [id number] [facility] 2021-08-11 00:00:00 2021-08-11 00:00:00 RefRodrick Cui [facility] PROFESSION[facility] [employer] [facility] 1.2.840.114 350.1.13.10 4.2.7.2.686 [id number] 107 [id number] [facility] 2021-08-11 00:00:00 2021-08-11 00:00:00 Refill Rodrick Pete [facility] PROFESSION[facility] [employer] [facility] 1.2.840.114 350.1.13.10 4.2.7.2.686 [id number] 107 [id number] [facility] 2021-08-02 00:00:00 2021-08-02 00:00:00 Abstract Marie Petegloria Demetri [facility] PROFESSIONAL [employer] [facility] CHILD [facility] 1.2.840.114 350.1.13.10 4.2.7.2.686 [id number] 107 [id number] [facility] 2021-08-01 00:00:00 2021-08-01 00:00:00 Patient Secure Msg Doctor Unassigned, Colp [facility] [employer] [facility] 1.2840.114 350.1.13.10 4.2.7.2.686 [id number] 107 [id number] [facility] 2021-07-29 09:30:00 2021-07-29 10:45:00 Director Of Adult Epilepsy Visit Ultrasound, GiovannaMfRodrick Kamara Antonio F [facility] 1.840.114 350.1.13.10 4.2.7.2.686 [id number] [facility] 2021-07-29 09:30:00 2021-07-29 09:30:00 Outpatient P [facility] [id number] [facility] 2021-07-29 09:30:00 2021-07-29 09:30:00 Outpatient MADDIE LANDRY [facility] [id number] [facility] 2021-07-29 08:00:00 2021-07-29 08:36:27 Director Of Adult Epilepsy Visit Lab, Dylan-Rmchp Rodrick Pete [facility] ..114 350.1.13.10 4.2.7.2.686 [id number] 107 [id number] [facility] 2021-07-23 00:00:00 2021-07-23 00:00:00 Patient Secure Msg Doctor Unassigned, Colp [facility] 1.284.114 350.1.13.10 4.2.7.2.686 [id number] [facility] 2021-07-21 09:00:00 2021-07-21 10:12:55 Outpatient RODRICK DENNIS [facility] [id number] [facility] 2021-07-21 09:00:00 2021-07-21 10:12:55 Routine Visit Rodrick Pete Demetri [facility] PROFESSIONAL [employer] [facility] 1..840.114 350.1.13.10 4.2.7.2.686 [id number] 107 [id number] [facility] 2021-07-21 09:00:00 2021-07-21 10:12:55 Outpatient YUSUF DENNISSDGloria [facility] [id number] [facility] 2021-07-21 09:00:00 2021-07-21 09:00:00 Outpatient YUSUF DENNISSDGloria [facility] [id number] [facility] 2021-07-21 09:00:00 2021-07-21 09:00:00 Outpatient RODRICK DENNIS [facility] [id number] [facility] 2021-07-17 02:36:00 2021-07-17 06:54:00 Emergency X SASHAMEGANSUDHAKARCARO [facility] ERT [id number] [facility] 2021-07-17 02:36:00 2021-07-17 06:54:00 Emergency Caro Bauer S [facility] 1..840.114 350.1.13.10 4.2.7.2.686 [id number] [facility] 2021-07-12 00:00:00 2021-07-12 00:00:00 Telephone Kiki Petecuauhtemoc [facility] PROFESSIONAL [employer] [facility] 1..840.114 350.1.13.10 4.2.7.2.686 [id number] 107 [id number] [facility] 2021-07-06 00:00:00 2021-07-06 00:00:00 Telephone Kiki Petecuauhtemoc [facility] PROFESSIONAL [employer] [facility] 1.2.840.114 350.1.13.10 4.2.7.2.686 [id number] 107 [id number] [facility] 2021-06-28 01:26:00 2021-06-29 10:10:00 Outpatient X BRENDA VELÁSQUEZ [facility] [id number] [facility] 2021-06-28 01:26:00 2021-06-29 10:10:00 Emergency Bear, Alayna S Brenda Velásquez [facility] 1.2.840.114 350.1.13.10 4.2.7.2.686 [id number] [facility] 2021-06-27 20:49:00 2021-06-27 20:59:00 Emergency X [facility] ERT [id number] [facility] 2021-06-27 20:49:00 2021-06-27 20:59:00 Emergency [facility] 1.2.840.114 350.1.13.10 4.2.7.2.686 [id number] [facility] 2021-06-24 00:00:00 2021-06-24 00:00:00 Patient Secure Msg Rodrick Pete [facility] PROFESSIONAL [facility] 1.2.840.114 350.1.13.10 4.2.7.2.686 [id number] 107 [id number] [facility] 2021-06-24 00:00:00 2021-06-24 00:00:00 Telephone Rodrick Pete [facility] PROFESSIONAL [employer] [facility] CHILD [facility] 1.2.840.114 350.1.13.10 4.2.7.2.686 [id number] 107 [id number] [facility] 2021-06-23 14:00:00 2021-06-23 15:33:45 Outpatient R RODRICK PETE [facility] [id number] [facility] 2021-06-23 14:00:00 2021-06-23 15:33:45 Initial Visit Pete, Rodrick Mosquera [facility] 1.2840.114 350.1.13.10 4.2.7.2.686 [id number] [facility] 2021-06-23 14:00:00 2021-06-23 15:33:45 Outpatient R KIKI PETECUAUHTEMOC [facility] [id number] [facility] 2021-06-23 14:00:00 2021-06-23 15:33:45 Outpatient R KIKI PETECUAUHTEMOC [facility] [id number] [facility] 2021-06-23 00:00:00 2021-06-23 00:00:00 Orders Only Doctor Unassigned, Colp [facility] 1.2840.114 350.1.13.10 4.2.7.2.686 [id number] [facility] 2021-06-22 08:04:00 2021-06-22 13:00:00 Emergency X ANGUS DWYER [facility] [id number] [facility] 2021-06-22 08:04:00 2021-06-22 13:00:00 Emergency Angus Dwyer [facility] 1.2840.114 350.1.13.10 4.2.7.2.686 [id number] [facility] 2021-06-21 22:18:00 2021-06-21 23:26:00 Emergency Caro Bauer [facility] 1.2840.114 350.1.13.10 4.2.7.2.686 [id number] [facility] 2021-06-21 22:18:00 2021-06-21 23:26:00 Emergency X CARO BAUER [facility] [id number] [facility] 2021-06-21 22:18:00 2021-06-21 23:26:00 Emergency X CARO BAUER [facility] [id number] [facility] 2021-06-11 12:44:00 2021-06-14 18:06:00 Inpatient X JOSE DE JESUS MEDINA [facility] [id number] [facility] 2021-06-11 12:44:00 2021-06-14 18:06:00 Hospital Encounter Abdullahi Gomez Christopher Adum, Vanessa Cowan Jose De Jesus [facility] [id number] 350.1.13.10 4.2.7.2.686 [id number] [facility] 2021-05-30 23:49:00 2021-06-03 14:41:00 Hospital Encounter Abdullahi Gomez Shannon [facility] [id number] 350.1.13.10 4.2.7.2.686 [id number] [facility] 2021-05-30 23:49:00 2021-06-03 14:41:00 Inpatient X EDITH TERRY SHANNON [facility] [id number] [facility] Results Test Description Test Time Test Comments Results Result Comments Source CT Abdomen pelvis w contrast 08:24:04 Ordering physician: SHORTY ZAMBRANO Indication: Status post cholecystectomy, postoperative abdominal pain,upper abdominal pain COMPARISON: CT the abdomen and pelvis dated 11/18/2023 TECHNIQUE: Axial images of the abdomen and pelvis are performed followingadministration of intravenous contrast material. Images were reformatted inthe coronal and sagittal plane. CT scan was performed according to ALARA(as low as reasonably achievable) policy. FINDINGS: The lung bases are clear. The patient is status postcholecystectomy. The liver, spleen, adrenal glands and pancreas are withinnormal limits. The kidneys are normal in appearance bilaterally withouthydronephrosis. No abdominal aortic aneurysm or dissection is appreciated. There is a 4.6 cm complex cyst in the left ovary, with trace free fluid inthe pelvis (series 2, image 137). There is no bowel obstruction, widespreaddiverticulosis or acute diverticulitis. The appendix is identified andwithin normal limits. ?Bone windows through the abdomen and pelvisdemonstrate no osseous destructive lesion. [facility] ([id number])2024-02-22 06:46:27* Test Item Value Reference Range Interpretation Comme nts NA (test code = 4612767316) 138 mmol/L 135-145 K (test code = 5201956178) 3.9 mmol/L 3.5-5.0 CL (test code = 5246289379) 104 mmol/L 98-108 CO2 TOTAL (test code = 9621730942) 22 mmol/L 23-31 L AGAP (test code = 2074999402) 12 2-16 BUN (test code = 1499716544) 11 mg/dL 7-23 GLUCOSE (test code = 1452759728) 113 mg/dL 70-110 H CREATININE (test code = 2160-0) 0.50 mg/dL 0.50-1.04 TOTAL BILI (test code = 2082651440) 0.9 mg/dL 0.1-1.1 CALCIUM (test code = 8946497591) 9.5 mg/dL 8.6-10.6 T PROTEIN (test code = 6789917328) 8.5 g/dL 6.3-8.2 H ALBUMIN (test code = 2354594378) 4.8 g/dL 3.5-5.0 ALK PHOS (test code = 9856218834) 81 U/L 34-122 ALTv (test code = 1742-6) 15 U/L 5-35 AST(SGOT) (test code = 2603347180) 21 U/L 13-40 eGFR (test code = 87343-4) 132.0 mL/min/1.73m2 CKD-EPI eGFR (2020). Assuming creatinine has been stable day-to-day for at least three months, the eGFR indicates Category G1 (>= 90 mL/min/1.73 m2) Lab Interpretation (test code = 82093-9) [facility] 06:45:47* Test Item Value Reference Range Interpretation Comme nts LIPASE (test code = 3391865806) 24 U/L 0-220 Lab Interpretation (test cod e = 11147-0) Normal [facility] WITH [id number] 06:27:08* Test Item Value Reference Range Interpretation Comme nts WBC (test code = 6690-2) 13.74 4.30-11.10 H RBC (test code = 789-8) 4.22 3.93-5.25 HGB (test code = 718-7) 14.6 g/dL 11.6-15.0 HCT (test code = 4544-3) 43.1 % 35.7-45.2 MCV (test code = 787-2) 102.1 fL 80.6-95.5 H MCH (test code = 785-6) 34.6 pg 25.9-32.8 H MCHC (test code = 786-4) 33.9 g/dL 31.6-35.1 RDW-SD (test code = 40068-2) 48.3 fL 39.0-49.9 RDW-CV (test code = 788-0) 12.9 % 12.0-15.5 PLT (test code = 777-3) 402 166-358 H MPV (test code = 36212-2) 9.3 fL 9.5-12.9 L NRBC/100 WBC (test code = 2992207061) 0.0 0.0-10.0 NRBC x10^3 (test code = 7949594342) See_Comment [Automated message] The system which generated this result transmitted reference range: 10*3/?L. The reference range was not used to interpret this result as normal/abnormal. GRAN MAT (NEUT) % (test code = 770-8) 89.3 % IMM GRAN % (test code = 1967785426) 0.40 % LYMPH % (test code = 736-9) 7.4 % MONO % (test code = 5905-5) 2.7 % EOS % (test code = 713-8) 0.1 % BASO % (test code = 706-2) 0.1 % GRAN MAT x10^3(ANC) (test code = 0137623404) 12.26 10*3/uL 1.88-7.09 H IMM GRAN x10^3 (test code = 4265261466) 0.06 10*3/uL 0.00-0.06 LYMPH x10^3 (test code = 731-0) 1.02 10*3/uL 1.32-3.29 L MONO x10^3 (test code = 742-7) 0.37 10*3/uL 0.33-0.92 EOS x10^3 (test code = 711-2) 0.03-0.39 L BASO x10^3 (test code = 704-7) 0.01-0.07 Lab Interpretation (test code = 06722-6) Abnormal [facility] Gflg7180-90-05 16:19:00* Test Item Value Reference Range Interpretation Comme [facility] POCT PREG (test code = 1605) Negative On board controls acceptable with C Line (test code = 3574) Yes POCT PREG LOT # (test code = 3575) [id number] POCT PREG TEST DATE ( test code = 3576) 05/27/2024 [facility] Xkzu6614-52-46 16:19:00* Test Item Value Reference Range Interpretation Comme [facility] POCT PREG (test code = 1605) Negative On board controls acceptable with C Line (test code = 3574) Yes POCT PREG LOT # (test code = 3575) [id number] POCT PREG TEST DATE ( test code = 3576) 05/27/2024 [facility] SOKP3245-72-49 10:32:00* Test Item Value Reference Range Interpretation Comme [facility] POCT PREG (test code = 1605) Negative On board controls acceptable with C Line (test code = 3574) Yes POCT PREG LOT # (test code = 3575) [id number] POCT PREG TEST DATE ( test code = 3576) 2024-11-23 Lab Interpretation (test cod e = 60694-1) Normal [facility] Eely6384-76-90 16:13:04* Test Item Value Reference Range Interpretation Comme [facility] Case Report (test code = 8404144367) Surgical Pathology ?Case: [id number] ? Authorizing Provider: ?Yisel Hart MD ?Collected: ? 12/24/2023 1057 ?Ordering Location: ? ? GI Endoscopy OR Department Received: ?12/24/2023 1148 ?Pathologist: ? Brendon Dawson MD PhD ?Specimen: ? ?STOMACH, 1. gastric biopsy ? Final Diagnosis (test code = 9943393346) n5zzyFGqLWKum8oyCCTjrFVkN zEwMzNcZnRuYmpcdWMxIHtccn VkJUzwwAdpYJQ4GFNbTQ1qbEz bjYt7pTslXJQbxdH2dCJmOZhc e1xeSCL1y5laillySOZhVTbaA t0qdHUasLcbVjUkGCMnVAc7eV 82ONOxcN3ewHAfRGq7YCWykEB nneImTnMaJQWhaANwxHF0OJJs TK6bbhnjKEvnGJfxCXLasaM1C BGxmYJwL6JmLTYhDT9hykjsRT A6SLfeEGTkXPA2FsWxYLLqy0D zkla9TjQviQDdXTrawOTedczt eiVsNXLatfXMLmAINU0MFXUDR XRIGO9MO3b1YIFuqjrpsOG6OV SuMYcRR4BTMURuASHGL0HGJIi TMDylAd4pLYLVPR2TD0uPL3VV LKJZQP2PLHbtEBKiVSOHPwNML 1DNCwxDFVLWVxWCDkTPZ7PHRo YEZN2LJEZFPXIQVBVxWZIZRtW JRklFRFxwYXIgLSBOTyBILiBQ WUxPUkktTElLRSBPUkdBTklTT VMgSURFTlRJRklFRFxwYXJccG KzXGyfONN0y0tmeRLgKFNgdQL aLxOjINTfIJHoe7gjXWXtxIBx ZzEwMzNcZnRuYmpcdWMxXGRlZ uPgl6lnb049gHUzd8nqHEDhNt D6gNIaBXWrfRjtury4yCvaTbT kEJOwm6yhwfKeCtAcNGAqMYYn YNLhvAZyZ235PXPbVCqca3gup 5LwAROjcQTqh9H7RANNHZnkGc DrE829v0eqv3rsswRrsME2YRL dERU8XEaalfRbdsM2WLvqmRHc VyC0XYumgiQbHZrjeiOtqpGbX dl6WATiI731WQE0hXwsi9jxSV B8EYRjAWCdAfbuKu5ymBGsL16 8CSLtQWMUIPUcwLb4BMUjjyRb leWbfJYYj077U628d9stMHPli sCzwGnSpqibv3xwK557BCXhqW EggvNaAwYdIZGgfPMtzKT8LWM jZY2pqidsSSpbVRzxKGQojdU4 EPBigIKhZ8TxCEHqHB1zfdouF KI9NDvhZQRqSXU0HeDiMZCvj0 Elcul1KkCsew5eyy54OWN9x4C ujJljEQN9XIR8BtZsGh9xyCYm SAOoDH7jRrYgiIByISHeij60r ZmgDJchscEqmD6zAhTqHHLzsX XvGHAoCP2upZWcBHMsqM7cxch jXHBnYnJkcmhlYWRccGdicmRy Gg1jtBzwCFY7GNbzH3wbiT2zY aK1AHbnA2cmzV4sPPs2DOferJ N2AVHnfA2hON9jtqyhu4nlHFy xQHdzVTDwevG2qsF1BSAhwMHj Z8GevI9mONMlAA9wrfnuo5kgQ WN3MMskHIShVBL9PrXtXQYxq1 Ikbrj6BwPgq5AmfYTzCBonT02 sf549SVMzubSdH9bgnXUsqtno qESrwsgbJAzqnrO9DMJnBIEnB WluXGYxXGZzMjBcbGFuZzEwMz NcaGljaFxmMVxkYmNoXGYxXGx cF7zqCnTiI4MwEJOxUdNtvPNa SEqbfWC1VMGcPVWfl91xqGe5H KSpjwgfe9IyHCZqmQRxrXSoxO 5wqlFym6gwZODtKRGoJQCdF0U wTSN8hHDkHXUuzLHdzQL0IY2v hqTdWY7qRAOnTspaxwWizMWut cNyMZBnUOurf9vkNZ8fBGCusF dtwL1ciJQ1BMSbv7lzgOHkzTV ml5znc9HcizPfGCnrKYNlCBze LGGwQPNvFL2xZESlzGVswuQez 1N0ScvzqCKwfcqjRbcqxaM6CQ spdcyuAJJsYBbrH0ekCzTtWHD hoMzsQmoak7FaFDNvTKSwPlba cGFyfX0= Clinical Information (test code = 6042408136) Lanre Bales is a 28 year old femaleHematemesis with nausea [K92.0]Coffee ground emesis [K92.0]Abdominal pain, epigastric [R10.13]1. gastric biopsy eval H pylori Gross Description (test code = 9243821428) g0ltmPFsDEDkrYKPYCS3LBKuN M6liXcneXw8dFqiFTWvgnL3zO JpOQuuq0onCFH4q2sqmvGHRwr wGJLeZZ6pCNsvHVBrLQ3kWpKr XGRlZmYxXHBhcGVydzEyMjQwX SMbiZZixBG9MZDxGW9cttryST mnRGjvFXFoncB5IUTibBTqF3D mHNBnYS1seialPQO9GXCYPibv Fr4uwDXojGbzLrAuUwHvYFTgG LDvOBVyq3awzdPTaspggAk1hR 4VSLUoF1HtZS9Gr8fiJGZsrMJ xKWJ3UOqec4grIIwnZOS6UNCx QATzLQPjNM5JBkJeTWW7PJa9T FMkMtT6ZEr9WRJRTHEgFVM7RT E0JgK2WMb3FPFiNQ8xKXtkrPU fYPocQvezBXqaX818XKldFACu W5AeB5XlHNtvBfZlULozHVXyA IHnOOlcHBDuY1OHCZLfDYK8KW H0PJMpGLf8KPs2OJ0UZbXdXDQ cLkp1FjU6OHUiGAr0NVcwGG3Q GMWdLCI7QUsbFtGgLCKiQJXlB Am1NJVlSRoubhJuVYmbTyucBA ezX21xqAYlGSGNScgecCZgtpo mczIwIFNQRUNJTUVOIEFcbHRy A9efBjAgGdtuZNVkCIvphSDmA CANClxwbGFpblxsdHJjaFxmcz TfIHYfkMKYAXR0ON0qVDTRGsx szKXlQJYoWMmRxQZchN5wejYD OVmpQRMlB1XsfhNoDZsmDTTcv f3opBxlPPieXeZxlSXrLFjhzV jmjBqfVFEuwUyefpGsV2D4nsJ mZJ3rVWCELMVqxN3wKSRhRZCu f8BbmURpkLkdI8GvfCDvEuIan A3kr2fjE5M5IXsUIGCfxjJnG5 6sc3yrxJMpf8XuXeL2NJ9oxJd cbyUikmOyY1ZsDPHjh90lpEL5 iATmkFApWnXyP94pmiMdCLftG gGdIY10UUPcDJleMEN7VDY5GQ CbqKUam9saclihDP06DLjfEN3 5NLumQM5bSSCaAUmiVCSvY4Dk T8F1BNbtGZIzRLQpdXWjmU1pk gPmomVczZk6SFLuZKL4qLGpzL lmOXHkQsaknCP9UGPvQcYthoL hy9PguPc5mSYsOOusOMWjaO1d dC6hNBMeEWSqwhWRShafDUXkY Thyx4GlIQrjaDpmGOHmOsRsTL iLrYptFYQKG6awuESzYXqcWQA FBNpCZ2LALC3PEISrcPARBED6 QV7bMDgrYBSzE6HqS0LbplI1r 1uduIytz1LuzGDiNP3wpANnZO 9MQYOiruHtOFr5 Disclaimer (test code = 8649723519) w5ehnDXpVTJjy8efYTRtpEYzI zEwMzNcZnRuYmpcdWMxIHtccn IvLDrkl7HbZ7RfBkVmLOmfpjJ rWBDiIyzlgopdYHUdXXF8ciRh WZRaGEotSHGeJLpuLd1bpMRwk FljTvRoIEDvx3jmgjBANOtcYl ZjC037QIOwISfns8nim1VkMPY kqPRtl8N9THZDlgklbCr8lQuq L96dl9W4OluvJ1mjOKJbBZXiB 2DdUN7hAQGsQvq9OGK8MYQ5QH XpPNOgM2QqBH9lPMSrkEGeMTk 9g0tugNfuRZPpXTN0g6kuDHfz liTtFF0ayp5otYt1v0aygnZpB GJzJHUaoFTXGVLmN4CouZskZt 3ufMz1lVzeYopgFIE8Rvi2NF4 ple17mtt5mDxwQEHbixhfMeE4 SEopUDMabevpILw7IDpeYJUyz BQ2LGPneUJbV5CrQQIoYI1mcl x9USQ0MOclOZXpCgP5ZQGvoRV aHQOjtNziZPras680ASL7WhSf MW3mP6Uuv2U3eD3xkCDaSXWrf LYmDwUvXEOjil5fkFZgVZxvd2 IbRJD0jwK7kWUntKSxPLDcVM3 9Tswtx4VpTopem2VyB00deNE8 JLsct0xcZK9aPsH8unCoILaty 0zimK2rUtI3AFziER5qEH7dIB LanJ1hxmpoIYInQqRhdzgoCFT uxHypgdWeXy2cpCbhQRL4YJdt E4hwdE6zKiX4MGnfH0bejH1hG Ma8HYwupKC8ELFsrL4aWV0plt biz0gnCClhUErmIJHbyxS8yhY 6NEBjoDSvP1KolZ4vMHKgTF4z xjhzm4ytJYD8YHtdDSBgBMI3I tPnUAJdc4Nnegg5KsZak0OnwL RvLUahW92gx776GIOipaTiX3x wbGFpblxwbGFpblxmMFxmczI0 QISpzsPrh9UcZCXvPTA6TXozG FiopDDiAFWulZnxd8yrE4TnrW FyXHBsYWluXGYxXGZzMjBcbGF uZzEwMzNcaGljaFxmMVxkYmNo JGPzJCkxH3jeYpOwK9GbMKVoR nIqfFTyC7qhTQfaoiGjEGYohg QhuGR7NVrkX3u1LEBbmrAymFz 0igYwEcPbTKSyWCS1EOyhpSGa DCBwg0XqfwouzIJuWg7bbYCpE MEusK1hUWXoJLRvOOilRO9mmH x1KINAbSIehVCoIkDVPPWsQO6 0vsAxYBXUclynr8Y5WPucQWEe n4EveVPkU9gyh4MrJZZvv25pN Y0rc6A3i2tjAEG3MK2jd4ApTK PlhQHejZLmEMApk3Fbvgrht6K jDDPattItr4WnPJRnvzWkzORr IZFbjqZlph2zzuNrFOGfPVRzH 9EcogipuPbgxoGbUTSnbw1daz FaLQQ8XBCXJZWoLCMnw3LuhF1 rrKDMMXE5sXPhqg8lesWZaPKk CQPaak75LLWhMF1kM3mbMFVtY JNqltRmaMDkh5MwFAQiaHI8uG JtFB0NXmSMf72zGKYrIHQBpvA yPEDmtJlhpDD8ahL7qJ2rRUhP REEpLlx+VYWoMVGZBIGwNM0vw qWyl5ZvbsIxoUwtZRYjdXUno0 JqjYBpb6TjgKfqa1PxiSEqjJY vJL2mKEPpprowQDByTASQEcPE FAMcyiX7u7XjRQRuKYGoIIS1p Inxdyk1ICYegU8fLIAjD7lgtj mfDHdcMBNks4CrtR8ujPXZeMU hl1QfmETerKIOqSMgUK5leaEy BCdSAGiZYIB5jtMaMIVpn6JtS BoaI1spF92qkSnzvMl9bMU7CL B2aV0lAxd+IFxwYXJccGFyIEF abXGrcNBpDOVzkWfgqwQuH4Ip atItqO2wuHGkiiYnPA6bQB2dW 0F9eAJaTABeleQns5ycXOytoo AqMuXiqtEyCRArLQebVRQxa7H zYHpfPIC1CDzcfhIbhqKakEOu rdpaEIVEDKUDyVHbmWZnXLU3L CbjfoYyznQqRN9fzB2pyWyprN 6eyMZouNZ3tnuvWWPpXTKurFn lIIQiOI7frXnqqZ2uZqIjSqDv EJfuEM8aCBRjJ4zuaLOlZRXmP SZgX9hxXkPrdM4tkBadCVapLe JcZnMyMFxwYXJccGFyXHBsYWl uXGYxXGZzMjBcbGFuZzEwMzNc aGljaFxmMVxkYmNoXGYxXGxvY 7voScTfG6TvGBAxMoEbnNKiU2 ckALcsSXZ8TNEwMY7viMRdGL0 9zLGuc1mfYCabgLcfdv2pS42h zXJeDTqefWomUDVjv26pw7YkX QFkvbBaon3dABGqcaF6jL8rYU EyxFcuVHSrxLYaSXYly9NpAHh naXRpemVkIGdsYXNzIHNsaWRl qyK7wcSyyhSmfgEyJOOhiQjjV BTak4PxBJHjTPqsn9Yflm9bkH IbXLAdnvQGeOsgpNDpbM3dA8K cSCKmHPOeud0aIHUijA2sHGzi p8YmhfxgCKAxLSTmJQTvrfWyb l7qQKQvsUNOQZ3ZTBjhnDHda9 IjhvDpE4dIBFR4TUYsYrAcGpk jVLFrvKZxjTQyWJFafz59LXEm lF5xtIokFSKagG6wkS3beVwbz C7fZvOvSnGmMHykDT9yVMQhG7 madAAhQJXnKADeW1rlPhCsoF6 jaFxmMVxjZjJcZnMyMFxwYXJ9 fQ== Embedded Images (test code = 8416924514) [facility] [id number] 16:40:41EXAM: US OVARY TORSION HISTORY: 28 years-old Female; Provided indication: eval for torsion; pelvicpain; bilateral 5.1cm cysts seen on CT . LMP = 4Pregnancy test = Negative. TECHNIQUE: Transabdominal and transvaginal ultrasound imaging and colorDoppler evaluation of the pelvis was performed. Spectral Doppler evaluationof the ovaries was performed. Call [facility] Contact [facility] Manager images were obtained for therecord. COMPARISON: Same [...] cm and2.8 x 1.9 x 2.1 cm areinseparable from the right ovary. These have thininternal septations, no obvious solid components, or and no increased flowon color Doppler Normal arterial and venous waveforms are visualized.Normal flow is seen on color Doppler. Left Adnexa:Ovary: The left ovary measures 3.7 x 1.6 x 3.1 cm with a v olume of 9.6 ml.A dominant follicle is noted..Normal arterial and venous waveforms arevisualized. Normal flow is seen on color Doppler.[facility]neyCT ABDOMEN PELVIS W [id number] 14:33:00Indication: Nausea/vomiting ? Comparison: None RL: 4209 [...] [facility]neyPregnancy Test, Potlf9754-92-53 11:59:46* Test Item Value Reference Range Interpretation Comme nts PREG SERUM (test code = 7495021985) Negative RUMA (test code = RUMA) Less than 10 IU/L. ?If low titer or ectopic is suspected, resubmit specimen in 48-72 hours. [facility]neyComplete Metabolic Xtjqg4933-26-13 11:58:40* Test Item Value Reference Range Interpretation Comme nts NA (test code = 4283943147) 138 mmol/L 135-145 K (test code = 7249332481) 3.5 mmol/L 3.5-5.0 CL (test code = 4710201118) 106 mmol/L 98-108 CO2 TOTAL (test code = 1951880631) 23 mmol/L 23-31 AGAP (test code = 1414899635) 9 2-16 BUN (test code = 1844862883) 6 mg/dL 7-23 L GLUCOSE (test code = 0835942399) 122 mg/dL 70-110 H CREATININE (test code = 2160-0) 0.61 mg/dL 0.50-1.04 TOTAL BILI (test code = 0543008984) 0.6 mg/dL 0.1-1.1 CALCIUM (test code = 9239914343) 9.0 mg/dL 8.6-10.6 T PROTEIN (test code = 0372202654) 8.1 g/dL 6.3-8.2 ALBUMIN (test code = 3058897449) 4.4 g/dL 3.5-5.0 ALK PHOS (test code = 6764546503) 85 U/L 34-122 ALTv (test code = 1742-6) 20 U/L 5-35 AST(SGOT) (test code = 4385355558) 19 U/L 13-40 eGFR (test code = 15875-2) 125.8 mL/min/1.73m2 CKD-EPI eGFR (2020). Assuming creatinine has been stable day-to-day for at least three months, the eGFR indicates Category G1 (>= 90 mL/min/1.73 m2) Lab Interpretation (test code = 62782-2) Abnormal [facility]neyLip[facility], Owrji6665-26-80 11:58:19* Test Item Value Reference Range Interpretation Comme nts LIPASE (test code = 1111076238) 40 U/L 0-220 Lab Interpretation (test cod e = 74980-9) Normal [facility]neyCBC with Cuydalzixwxo7800-34-52 11:41:57* Test Item Value Reference Range Interpretation [...] 32.8 g/dL 31.6-35.1 RDW-SD (test code = 36010-8) 51.3 fL 39.0-49.9 H RDW-CV (test code = 788-0) 13.7 % 12.0-15.5 PLT (test code = 777-3) 349 166-358 MPV (test code = 20922-5) 9.3 fL 9.5-12.9 L NRBC/100 WBC (test code = 2492055247) 0.0 0.0-10.0 NRBC x10^3 (test code = 4063594558) See_Comment [Automated messa ge] The system which generated this result transmitted reference range: 10*3/?L. The reference range was not used to interpret this result as normal/abnormal. GRAN MAT (NEUT) % (test code = 770-8) 73.3 % IMM GRAN % (test code = 9466001847) 0.40 % LYMPH % (test code = 736-9) 19.0 % MONO % (test code = 5905-5) 4.8 % EOS % (test code = 713-8) 2.0 % BASO % (test code = 706-2) 0.5 % GRAN MAT x10^3(ANC) (test code = 9355720844) 7.18 10*3/uL 1.88-7.09 H IMM GRAN x10^3 (test code = 4161214118) 0.04 10*3/uL 0.00-0.06 LYMPH x10^3 (test code = 731-0) 1.86 10*3/uL 1.32-3.29 MONO x10^3 (test code = 742-7) 0.47 10*3/uL 0.33-0.92 EOS x10^3 (test code = 711-2) 0.20 10*3/uL 0.03-0.39 BASO x10^3 (test code = 704-7) 0.05 10*3/uL 0.01-0.07 Lab Interpretation (test code = 50661-6) Abnormal [facility]. METABOLIC PANEL (47793)2023-11-08 17:45:25* Test Item Value Reference Range Interpretation Comme nts NA (test code = 0160534756) 136 mmol/L 135-145 K (test code = 8265853196) 3.1 mmol/L 3.5-5.0 L CL (test code = 5175588816) 105 mmol/L 98-108 CO2 TOTAL (test code = 4607232398) 21 mmol/L 23-31 L AGAP (test code = 9595619363) 10 2-16 BUN (test code = 8997550168) 12 mg/dL 7-23 GLUCOSE (test code = 9108113675) 92 mg/dL 70-110 CREATININE (test code = 2160-0) 0.57 mg/dL 0.50-1.04 TOTAL BILI (test code = 0778058988) 0.6 mg/dL 0.1-1.1 CALCIUM (test code = 5160140445) 9.0 mg/dL 8.6-10.6 T PROTEIN (test code = 7573167877) 8.0 g/dL 6.3-8.2 ALBUMIN (test code = 8734375144) 4.3 g/dL 3.5-5.0 ALK PHOS (test code = 7428282232) 81 U/L 34-122 ALTv (test code = 1742-6) 17 U/L 5-35 AST(SGOT) (test code = 9306049886) 45 U/L 13-40 H eGFR (test code = 68378-7) 127.9 mL/min/1.73m2 CKD-EPI eGFR (2020). Assuming creatinine has been stable day-to-day for at least three months, the eGFR indicates Category G1 (>= 90 mL/min/1.73 m2) Lab Interpretation (test code = 10695-8) Abnormal [facility]neyLIPASE2024-09-19 16:30:35* Test Item Value Reference Range Interpretation Comme nts LIPASE (test code = 2093039543) 53 U/L 0-220 Lab Interpretation (test cod e = 83661-4) Normal [facility] WITH [id number] 16:15:57* Test Item Value Reference Range Interpretation [...] 33.1 g/dL 31.6-35.1 RDW-SD (test code = 94471-0) 50.1 fL 39.0-49.9 H RDW-CV (test code = 788-0) 13.8 % 12.0-15.5 PLT (test code = 777-3) 471 166-358 H MPV (test code = 39237-9) 9.2 fL 9.5-12.9 L NRBC/100 WBC (test code = 4743839476) 0.0 0.0-10.0 NRBC x10^3 (test code = 8530058473) See_Comment [Automated messa ge] The system which generated this result transmitted reference range: 10*3/?L. The reference range was not used to interpret this result as normal/abnormal. GRAN MAT (NEUT) % (test code = 770-8) 77.8 % IMM GRAN % (test code = 6760431025) 0.30 % LYMPH % (test code = 736-9) 16.7 % MONO % (test code = 5905-5) 4.7 % EOS % (test code = 713-8) 0.2 % BASO % (test code = 706-2) 0.3 % GRAN MAT x10^3(ANC) (test code = 4643484086) 9.31 10*3/uL 1.88-7.09 H IMM GRAN x10^3 (test code = 9673356971) 0.04 10*3/uL 0.00-0.06 LYMPH x10^3 (test code = 731-0) 1.99 10*3/uL 1.32-3.29 MONO x10^3 (test code = 742-7) 0.56 10*3/uL 0.33-0.92 EOS x10^3 (test code = 711-2) 0.03-0.39 L BASO x10^3 (test code = 704-7) 0.03 10*3/uL 0.01-0.07 Lab Interpretation (test code = 14525-5) Abnormal [facility] [id number] 16:01:00* Test Item Value Reference Range Interpretation Comme nts POCT PREG (test code = 1605) Negative On board controls acceptable with C Line (test code = 3574) Yes POCT PREG LOT # (test code = 3575) [id number] POCT PREG TEST DATE ( test code = 3576) 11-28-24 Lab Interpretation (test cod e = 24329-7) Normal [facility] [id number] 16:30:00* Test Item Value Reference Range Interpretation Comme nts POCT PREG (test code = 1605) Negative On board controls acceptable with C Line (test code = 3574) Yes POCT PREG LOT # (test code = 3575) [id number] POCT PREG TEST DATE ( test code = 3576) 03/28/2024 Lab Interpretation (test cod e = 39007-4) [facility] [id number] 20:18:00* Test Item Value Reference Range Interpretation Comme nts POCT PREG (test code = 1605) Negative On board controls acceptable with C Line (test code = 3574) Yes POCT PREG LOT # (test code = 3575) POCT PREG TEST DATE ( test code = 3576) [facility] [id number] 20:18:00* Test Item Value Reference Range Interpretation Comme nts POCT PREG (test code = 1605) Negative On board controls acceptable with C Line (test code = 3574) Yes POCT PREG LOT # (test code = 3575) POCT PREG TEST DATE ( test code = 3576) [facility] OR [place] ONLY - [id number] 04:42:10* Test Item Value Reference Range Interpretation Comme nts RPR (Qualitative) (test code = 50380-9) Nonreactive Nonreactive Lab Interpretation (test cod e = 18477-0) [facility] Surface [id number] 17:49:35 * Test Item Value Reference Range Interpretation Comme nts HBsAg Semi-Quantitative (mesha t code = 5195-3) Negative Negative [facility] AG-AB WITH [id number] 12:19:16* Test Item Value Reference Range Interpretation Comme nts HIV Semi-quantitative (test code = 33010-5) Negative Negative RUMA (test code = RUMA) Non-reactive for HIV-1 antigen and HIV-1/HIV-2 antibodies. ?No laboratory evidence of HIV infection. ?Repeat in 2-4 weeks if acute HIV infection is suspected. [facility]. METABOLIC PANEL (58780)2021-11-26 11:29:08* Test Item Value Reference Range Interpretation Comme nts NA (test code = 7658153603) 137 mmol/L 135-145 K (test code = 3828042874) 3.6 mmol/L 3.5-5 CL (test code = 7012231223) 105 mmol/L 98-108 CO2 TOTAL (test code = 0864275201) 21 mmol/L 23-31 L AGAP (test code = 4368843743) 2-16 BUN (test code = 9831298054) 4 mg/dL 7-23 L GLUCOSE (test code = 8397549437) 93 mg/dL 70-110 CREATININE (test code = 3945152191) 0.49 mg/dL 0.5-1.04 L TOTAL BILI (test code = 3288958418) 0.2 mg/dL 0.1-1.1 CALCIUM (test code = 1352833174) 9.0 mg/dL 8.6-10.6 T PROTEIN (test code = 4088447056) 6.9 g/dL 6.3-8.2 ALBUMIN (test code = 5090021866) 3.7 g/dL 3.5-5 ALK PHOS (test code = 0068417881) 169 U/L 34-122 H ALTv (test code = 1742-6) 15 U/L 5-35 AST(SGOT) (test code = 4814830082) 23 U/L 13-40 eGFR (test code = 2472047526) mL/min/1.73m2 RUMA (test code = RUMA) Association [...] imaging tests). Lab Interpretation (test code = 62631-8) [facility]normal [facility] [id number] 11:28:48* Test Item Value Reference Range Interpretation Comme nts URIC ACID (test code = 7754552456) 3.4 mg/dL 2.9-6 Lab Interpretation (test cod e = 88708-4) Normal [facility]CT[facility] [id number] 11:24:10* Test Item Value Reference Range Interpretation Comme nts LDH (test code = 5930587975) 216 U/L 120-246 Lab Interpretation (test cod e = 56871-4) Normal [facility] and Screen - ONCE [id number] 10:30:18 * Test Item Value Reference Range Interpretation Comme nts ABO & RH (test code = 20) O Positive Performed at [facility] Laboratory [facility] - [facility] Blood [address] [place] [address] Free: [phone] No. [id number] IAT (test code = 1185) Negative Performed at [facility] Laboratory [facility] Blood [place] [address]Toll Free: [phone] No. [id number] [facility] with [id number] 09:46:38* Test Item Value Reference Range Interpretation [...] 34.9 g/dL 31.6-35.1 RDW-SD (test code = 23888-6) 40.9 fL 39-49.9 RDW-CV (test code = 788-0) 12.2 % 12-15.5 PLT (test code = 777-3) See_Comment [Automated messa ge] The system which generated this result transmitted reference range: 166 - 358 10*3/?L. The reference range was not used to interpret this result as normal/abnormal. MPV (test code = 86699-7) 9.9 fL 9.5-12.9 NRBC/100 WBC (test code = 4248240251) See_Comment [Automated [employer] ssage] The system which generated this result transmitted reference range: 0.0 - 10.0 /100 WBCs. The reference range was not used to interpret this result as normal/abnormal. NRBC x10^3 (test code = 2185684231) See_Comment [Automated [employer] ge] The system which generated this result transmitted reference range: 10*3/?L. The reference range was not used to interpret this result as normal/abnormal. GRAN MAT (NEUT) % (test code = 770-8) 70.4 % IMM GRAN % (test code = 9460453012) 0.70 % LYMPH % (test code = 736-9) 20.1 % MONO % (test code = 5905-5) 6.0 % EOS % (test code = 713-8) 2.5 % BASO % (test code = 706-2) 0.3 % GRAN MAT x10^3(ANC) (test code = 2082219088) 8.92 10*3/uL 1.88-7.09 H IMM GRAN x10^3 (test code = 1080425130) 0.09 10*3/uL 0-0.06 H LYMPH x10^3 (test code = 731-0) 2.55 10*3/uL 1.32-3.29 MONO x10^3 (test code = 742-7) 0.76 10*3/uL 0.33-0.92 EOS x10^3 (test code = 711-2) 0.32 10*3/uL 0.03-0.39 BASO x10^3 (test code = 704-7) 0.04 10*3/uL 0.01-0.07 Lab Interpretation (test code = 85831-1) Abnormal [facility] URINALYSIS W SPECIFIC [id number] 14:56:00* Test Item Value Reference Range Interpretation [...] POCT U APPEAR (test code = 3267) [facility] URINALYSIS W SPECIFIC [id number] 14:56:00* Test Item Value Reference Range Interpretation [...] POCT U APPEAR (test code = 3267) [facility] URINALYSIS W SPECIFIC [id number] 14:58:00* Test Item Value Reference Range Interpretation [...] POCT U APPEAR (test code = 3267) [facility] URINALYSIS W SPECIFIC [id number] 14:58:00* Test Item Value Reference Range Interpretation [...] POCT U APPEAR (test code = 3267) [facility] URINALYSIS W SPECIFIC [id number] 14:58:00* Test Item Value Reference Range Interpretation [...] POCT U APPEAR (test code = 3267) [facility] URINALYSIS W SPECIFIC [id number] 14:58:00* Test Item Value Reference Range Interpretation [...] POCT U APPEAR (test code = 3267) [facility] URINALYSIS W SPECIFIC [id number] 14:58:00* Test Item Value Reference Range Interpretation [...] POCT U APPEAR (test code = 3267) [facility] URINALYSIS W SPECIFIC [id number] 18:21:00* Test Item Value Reference Range Interpretation [...] [facility] History and Physical Notes Date/Time Note Provider Source 2024-01-29 09:03:32 Patient seen and examined in the preop/DSU area. No changes in history and physical from our note below. -OR today for laparoscopic cholecystectomy -NPO past midnight -Surgical consent signed Kiko Belcher MD 01/29/2024 9:03 AM PGY4, General Surgery OGY RESEARCH ASSISTANT Associated attestation - Eva Bryan MD - 01/29/2024 10:25 AM BIOLOGY RESEARCH ASSISTANT Attending Attestation: I personally evaluated and examined [...] Eva Bryan MD - 01/07/2024 11:15 AM BIOLOGY RESEARCH ASSISTANT Images from the original note were not included. GENERAL SURGERY CLINIC NOTE Reason for Visit / Chief Complaint: Abdominal pain, gallstones History of Present Illness: Lanre Bales is a 28 year old female with PMHx as below who presents for evaluation of abdominal pain and gallstones. She was seen at [facility] ED in 11/08/2023 for vomiting. Work up [...] with nausea and vomiting and presented to [facility] on 01/01/2024. An US was obtained [...] lives with mother and child, FOB involved. Anglican preference: Anabaptism. Has one cat, educated about diego litter [...] min Stress: No Stress Concern Present (12/19/2022) [facility] [place] [facility] Occupational Health - Occupational Stress Questionnaire Feeling of Stress : Not at all Social Connections: Moderately Integrated (12/19/2022) Social Connection and Isolation Panel [NHANES] Frequency of Communication with Friends and Family: More than three times a week Frequency of Social Gatherings with Friends and Family: Twice a week Attends Anglican Services: 1 to 4 times per year [...] othopnea, claudication, edema, coronary artery disease/history of MT Respiratory: Cough, sputum production, hemoptysis, wheezing, shortness [...] consent obtained. Eva Bryan M.D. 01/07/2024 14:58 [facility]
[2024-02-23] MEDS ORDERED: ONDANSETRON 4 MG/2 ML VIAL ONE (02:45)
[2024-02-23] MEDS ORDERED: PROMETHAZINE INJ 25 MG/ML AMP ONE (02:46)
[2024-02-23] MEDS ORDERED: FAMOTIDINE 20 MG/2 ML VIAL IV ONE (02:46)
[2024-02-23] MEDS ORDERED: MORPHINE 4 MG/ML SYR ONE (02:46)
[2024-02-23] MEDS ORDERED: NA CHLORIDE 0.9% 2,000 ML ONE (02:46)
[2024-02-23] MEDS ORDERED: KETOROLAC 30 MG/ML INJ ONE (02:46)
[2024-02-23 03:21] LABS: Absolute Basophils 0.1 K/uL (0-0.5); Absolute Eosinophils 0.1 K/uL (0-0.5); Absolute Lymphocytes (CBC) 2.7 K/uL (0.7-4.9); Absolute Monocytes 0.8 K/uL (0.1-1.3); Absolute Neutrophil 9.5 K/uL (1.8-8.0); Basophils % 0.7 % (0-1.3); Eosinophils % 0.7 % (0-4.4); Hematocrit 42.1 % (36.0-45.0); Hemoglobin 14.2 g/dL (12.0-15.0); Lymphocytes % 20.5 % (15.3-44.8); MCH 34.5 pg (27.0-35.0); MCHC 33.7 g/dL (32.0-36.0); MCV 102.4 fL (80-100); MPV 7.3 fL (7.6-11.3); Monocytes % 6.2 % (3.3-12.3); Neutrophils % 71.9 % (41.7-73.7); Platelets 400 thou/uL (152-406); RBC Red Blood Cell Count 4.12 M/uL (3.86-4.86); Red Cell Distribution Width 13.8 % (12.1-15.2)
[2024-02-23 03:39] LABS: Albumin 3.7 g/dL (3.4-5.0); Albumin/Globulin Ratio 0.9 (1.1-1.8); Anion Gap 11.1 mEq/L (5.0-15.0); Bilirubin Total 0.7 mg/dL (0.2-1.0); Globulin 3.9 g/dL (2.3-3.5); Potassium 3.1 mEq/L (3.5-5.1); Protein, Total 7.6 g/dL (6.4-8.2)
[2024-02-23 05:28] LABS: Sqamous Epithelial 20-50 /HPF (None Seen); Urine Bacteria None Seen /HPF (<20); Urine Bilirubin NEGATIVE (Negative); Urine Blood 1+ (Negative); Urine Clarity Extremely Turbid (Clear); Urine Color Yellow (Yellow); Urine Culture Reflex Order NOT NEEDED; Urine Glucose NEGATIVE (Negative); Urine Ketones 1+ (Negative); Urine Microscopic Reflex YN ORDER UMIC; Urine Mucus 4+ /HPF (None Seen); Urine Nitrite NEGATIVE (Negative); Urine Protein 1+ (Negative); Urine RBC >50 /HPF (None Seen); Urine Urobilinogen 1+ (Normal); Urine pH 6.5 (5.0-7.0)
[2024-02-23] MEDS ORDERED: CEFTRIAXONE 1000 MG/VIAL ONE (05:50)
[2024-02-23] MEDS ORDERED: LIDOCAINE VISCOUS 2% 10ML ORAL SOLN ONE (05:51)
[2024-02-23] MEDS ORDERED: NA CHLORIDE 0.9% 50 ML ONE (05:51)
[2024-02-23] MEDS ORDERED: MAGNES/ALUMIN/SIMET 30ML UCUP ONE (05:51)
--- NOTE | 2024-02-23 05:53 | ER ---
Nurse's Notes [facility] Name: Robin Bernard Age: 28 yrs Sex: Female : 1995 Arrival Date: 02/23/2024 Time: 02:26 Bed 6 Private MD: Diagnosis: Acute gastroenteritis,, acute urinary tract infection. Presentation: 02/22 02:51 Chief complaint: Patient states: Abdominal pain, burning with urination and vomiting x2 dd2 days. Recently seen at [facility] and rx antibiotic. Coronavirus screen: At this time, the client does not indicate any symptoms associated with coronavirus-19. Ebola Screen: No symptoms or risks identified at this time. Initial Sepsis Screen: Does the patient meet any 2 criteria? No. Patient's initial sepsis screen is negative. Does the patient have a suspected source of infection? No. Patient's initial sepsis screen is negative. Risk Assessment: Do you want to hurt yourself or someone else? Patient reports no desire to harm self or others. Onset of symptoms was February 22, 2024. 02:51 Method Of Arrival: Ambulatory dd2 02:51 Acuity: BOZENA 3 dd2 Triage Assessment: 02:53 General: Appears uncomfortable, Behavior is cooperative, appropriate for age, crying. dd2 Pain: Complains of pain in epigastric area Pain does not radiate. Pain currently is 10 out of 10 on a pain scale. Quality of pain is described as burning, crampy. EENT: No deficits noted. No signs and/or symptoms were reported regarding the EENT system. Neuro: [place] Agitation-Sedation Scale (RASS): 0 - Alert and Calm Level of Consciousness is awake, alert, obeys commands, Oriented to person, place, time, situation, Appropriate for age. Cardiovascular: Patient's skin is warm and dry. Respiratory: Airway is patent Respiratory effort is even, unlabored, Respiratory pattern is regular, symmetrical. GI: Abdomen is round non-distended, Bowel sounds present X 4 quads. Abdomen is tender to palpation in epigastric area Reports epigastric pain, nausea, vomiting. : Reports burning with urination. Derm: No deficits noted. No signs and/or symptoms reported regarding the dermatologic system. Musculoskeletal: Circulation, motion, and sensation intact. Range of motion: intact in all extremities. 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 Flu vaccine is not up to date. It has been more than one year since last vaccine. - Infectious Disease History:: Denies. - Social history:: Smoking status: Patient denies any tobacco usage or history of. - Family history:: not pertinent. Screenin:56 [facility] ED Fall Risk Assessment (Adult) History of falling in the last 3 months, dd2 including since admission No falls in past 3 months (0 pts) Confusion or Disorientation No (0 pts) Intoxicated or Sedated No (0 pts) Impaired Gait No (0 pts) Mobility Assist Device Used No (0 pt) Altered Elimination No (0 pt) Score/Fall Risk Level 0 - 2 = Low Risk Oriented to surroundings, Maintained a safe environment, Educated pt \T\ family on fall prevention, incl call for assistance when getting out of bed, Assessed \T\ reinforced patient's understanding of fall precautions, Hourly rounding (assess needs \T\ fall precautionary measures) done. Abuse screen: Denies threats or abuse. Nutritional screening: No deficits noted. Tuberculosis screening: No symptoms or risk factors identified. Assessment: 02:56 Reassessment: SEE TRIAGE ASSESSMENT FOR FULL ASSESSMENT. dd2 03:58 Reassessment: Patient and/or family updated on plan of care and expected duration. Pain br2 level reassessed. Patient is alert, oriented x 3, equal unlabored respirations, skin warm/dry/pink. Patient states feeling better. Patient states symptoms have improved. Vital Signs: 02:51 BP 138 / 100; Pulse 99; Resp 16; Temp 98.4(O); Pulse Ox 99% on R/A; Weight 108.86 kg; dd2 Height 5 ft. 5 in. ; Pain 10/10; 03:59 BP 148 / 94; Pulse 59; Resp 18; Pulse Ox 100% on R/A; Pain 7/10; br2 05:04 BP 112 / 59; Pulse 95; Resp 18 S; Pulse Ox 100% on R/A; br2 02:51 Body Mass Index 39.94 (108.86 kg, 165.1 cm) dd2 02:51 Pain Scale: Adult dd2 03:59 Pain Scale: Adult br2 [place] Coma Score: 02:56 Eye Response: spontaneous(4). Motor Response: obeys commands(6). Verbal Response: dd2 oriented(5). Total: 15. 05:42 Eye Response: spontaneous(4). Motor Response: obeys commands(6). Verbal Response: sp4 oriented(5). Total: 15. ED Course: 02:28 Patient arrived in ED. gm2 02:34 Gwyn Cain MD is Attending Physician. sp4 02:53 Triage completed. dd2 02:53 Arm band placed on right wrist. Patient placed in an exam room, on a stretcher, on dd2 pulse oximetry. 02:56 Patient has correct armband on for positive identification. Bed in low position. Call dd2 light in reach. Side rails up X 1. Client placed on continuous cardiac and pulse oximetry monitoring. NIBP monitoring applied. Door closed. Noise minimized. Pillow given. Verbal reassurance given. 02:56 No provider procedures requiring assistance completed. Initial lab(s) drawn, by ED dd2 staff, sent to lab. Inserted saline lock: 22 gauge in right antecubital area, using aseptic technique. Blood collected. Flushed with 10 mL NS. Patient maintains SpO2 saturation greater than 95% on room air. 03:50 Kelly Whitman, RN is Primary Nurse. br2 05:15 Urinalysis w/ reflexes Sent. br2 05:15 Test, Urine Sent. br2 06:19 IV discontinued, intact, bleeding controlled, No redness/swelling at site. Pressure dd2 dressing applied. 06:20 Provided Education on: D/C EDUCATION. dd2 Administered Medications: 03:01 Drug: Famotidine IVP 20 mg IVP once; dilute with 10 mL 0.9% NaCl; give over 2 minutes dd2 Route: IVP; Site: right antecubital; 04:00 Follow up: Response: No adverse reaction br2 03:01 Drug: Ketorolac IVP 30 mg IVP once Route: IVP; Site: right antecubital; dd2 04:00 Follow up: Response: No adverse reaction; Pain is decreased br2 03:01 Drug: morphine IVP or IV 4 mg IVP once over 4 mins Route: IVP; Infused Over: 4 mins; dd2 Site: right antecubital; 04:00 Follow up: Response: No adverse reaction; Pain is decreased br2 03:01 Drug: Promethazine IM 50 mg IM once Route: IM; Site: left gluteus; dd2 04:01 Follow up: Response: No adverse reaction br2 03:01 Drug: NS 0.9% IV 1000 ml IV at 1000 ml once; to be given as a bolus over 60 minutes dd2 Route: IV; Rate: 1000 ml; Site: right antecubital; 05:05 Follow up: Response: No adverse reaction; IV Status: Completed infusion; IV Intake: br2 1000ml 03:02 Drug: Ondansetron IVP 8 mg IVP once; over 2 minutes Route: IVP; Site: right antecubital;dd2 03:59 Follow up: Response: No adverse reaction br2 03:02 Drug: NS 0.9% IV 1000 ml IV at 1 bolus Per protocol; to be given as a bolus over 60 dd2 minutes Route: IV; Rate: 1 bolus; Site: right antecubital; 04:00 Follow up: Response: No adverse reaction; IV Status: Completed infusion; IV Intake: br2 1000ml 05:58 Drug: Rocephin - Rocephin (cefTRIAXone) IVPB 1 grams IVPB once over 30 mins; (mix in 50 dd2 mL NS) Route: IVPB; Infused Over: 30 mins; Site: right antecubital; 06:19 Follow up: Response: No adverse reaction; IV Status: Completed infusion; IV Intake: [id number] 05:58 Drug: GI Cocktail without - (Maalox PO 30 ml, Lidocaine Mucous Membrane 2 % 15 dd2 ml) PO once Route: PO; 06:19 Follow up: Response: No adverse reaction dd2 Medication: 02:56 VIS not applicable for this client. dd2 Intake: 04:00 IV: 1000ml; Total: 1000ml. br2 05:05 IV: 1000ml; Total: 2000ml. br2 06:19 IV: 50ml; Total: 2050ml. dd2 Outcome: 05:53 Discharge ordered by MD. brock 06:19 Discharged to home via wheelchair, with family, dd2 06:19 Condition: improved 06:19 Discharge instructions given to patient, Instructed on discharge instructions, follow up and referral plans. medication usage, Demonstrated understanding of instructions, follow-up care, medications, Prescriptions given X 2, 06:20 Patient left the ED. dd2 Signatures: Radha Fiore RN RN lg3 Gwyn Cain MD MD sp4 Bridget Valenzuela gm2 Kelly Whitman RN RN br2 MATI ZUÑIGA RN RN dd2 Corrections: (The following items were deleted from the chart) 02:50 02:50 Chief complaint: Patient states: [facility] lg3 lg3
--- NOTE | 2024-02-23 05:54 | EDPHYS ---
Physician Documentation [facility] Name: Robin Bernard Age: 28 yrs Sex: Female : 1995 Arrival Date: 02/23/2024 Time: 02:26 Bed 6 Private MD: ED Physician Gwyn Cain HPI: 02/22 02:34 This 28 yrs old Black Female presents to ER via Unassigned with complaints of sp4 Nausea/Vomiting, Abdominal Pain. 05:41 28-year-old female presents with acute nausea vomiting abdominal pain.. sp4 05:42 Patient has history of cholecystectomy on 01/29/2024 at [facility]. Patient sp4 developed nausea vomiting and epigastric abdominal pain and went to [facility] yesterday where she received a CAT scan that did not reveal acute findings. Patient was given cefdinir as well for urinary tract infection. At this time patient complains of moderate epigastric pain associated with nausea and vomiting.. 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 Flu vaccine is not up to date. It has been more than one year since last vaccine. - Infectious Disease History:: Denies. - Social history:: Smoking status: Patient denies any tobacco usage or history of. - Family history:: not pertinent. ROS: 05:42 Constitutional: Negative for fever, chills, and weight loss, positive epigastric pain, sp4 positive nausea and vomiting. 05:42 All other systems are negative, Exam: 05:42 Constitutional: This is a well developed, well nourished patient who is awake, alert, sp4 uncomfortable appearing Head/Face: Normocephalic, atraumatic. Eyes: Pupils equal round and reactive to light, extra-ocular motions intact. Lids and lashes normal. Conjunctiva and sclera are not injected. Cornea within normal limits. Periorbital areas with no swelling, redness, or edema. ENT: Nares patent. No nasal discharge, no septal abnormalities noted. Tympanic membranes are normal and external auditory canals are clear. Oropharynx with no redness, swelling, or masses, exudates, or evidence of obstruction, uvula midline. Mucous membranes moist. Neck: Trachea midline, no thyromegaly or masses palpated, and no cervical lymphadenopathy. Supple, full range of motion without nuchal rigidity, or vertebral point tenderness. Chest/axilla: Normal chest wall appearance and motion. Nontender with no deformity. No lesions are appreciated. Cardiovascular: Regular rate and rhythm with a normal S1 and S2. No gallops, murmurs, or rubs. Normal PMI, no JVD. No pulse deficits. Respiratory: Lungs have equal breath sounds bilaterally, clear to auscultation and percussion. No rales, rhonchi or wheezes noted. No increased work of breathing, no retractions or nasal flaring. Abdomen/GI: Soft, with normal bowel sounds. No distension or tympany. No guarding or rebound. No evidence of tenderness throughout. Back: No spinal tenderness. No costovertebral tenderness. Skin: Warm, dry with normal turgor. Normal color with no rashes, no lesions, and no evidence of cellulitis. MS/ Extremity: Pulses equal, no cyanosis. Neurovascular intact. Full, normal range of motion. Neuro: Awake and alert, GCS 15, oriented to person, place, time, and situation. Cranial nerves II-XII grossly intact. Motor strength 5/5 in all extremities. Sensory grossly intact. Psych: Awake, alert, with orientation to person, place and time. Behavior, mood, and affect are within normal limits Vital Signs: 02:51 BP 138 / 100; Pulse 99; Resp 16; Temp 98.4(O); Pulse Ox 99% on R/A; Weight 108.86 kg; dd2 Height 5 ft. 5 in. ; Pain 10/10; 03:59 BP 148 / 94; Pulse 59; Resp 18; Pulse Ox 100% on R/A; Pain 7/10; br2 05:04 BP 112 / 59; Pulse 95; Resp 18 S; Pulse Ox 100% on R/A; br2 02:51 Body Mass Index 39.94 (108.86 kg, 165.1 cm) dd2 02:51 Pain Scale: Adult dd2 03:59 Pain Scale: Adult br2 [place] Coma Score: 02:56 Eye Response: spontaneous(4). Motor Response: obeys commands(6). Verbal Response: dd2 oriented(5). Total: 15. 05:42 Eye Response: spontaneous(4). Motor Response: obeys commands(6). Verbal Response: sp4 oriented(5). Total: 15. MDM: 02:36 Medical Screening Exam initiated sp4 05:44 Differential diagnosis: Nonspecific abd pain, gastritis, pancreatitis, viral sp4 gastroenteritis, gastroenteritis. Data reviewed: vital signs, nurses notes, old medical records, lab test result(s). 02/22 02:36 Order name: CBC with Diff; Complete Time: 04:24 sp4 02/22 02:36 Order name: CMP; Complete Time: 04:24 sp4 02/22 02:36 Order name: Lipase; Complete Time: 04:24 sp4 02/22 02:36 Order name: Test, Urine; Complete Time: 05:39 sp4 02/22 02:36 Order name: Urinalysis w/ reflexes; Complete Time: 05:39 sp4 02/22 02:36 Order name: IV Saline Lock; Complete Time: 03:01 sp4 02/22 02:36 Order name: Labs collected and sent; Complete Time: 03:01 sp4 Administered Medications: 03:01 Drug: Famotidine IVP 20 mg IVP once; dilute with 10 mL 0.9% NaCl; give over 2 minutes dd2 Route: IVP; Site: right antecubital; 04:00 Follow up: Response: No adverse reaction br2 03:01 Drug: Ketorolac IVP 30 mg IVP once Route: IVP; Site: right antecubital; dd2 04:00 Follow up: Response: No adverse reaction; Pain is decreased br2 03:01 Drug: morphine IVP or IV 4 mg IVP once over 4 mins Route: IVP; Infused Over: 4 mins; dd2 Site: right antecubital; 04:00 Follow up: Response: No adverse reaction; Pain is decreased br2 03:01 Drug: Promethazine IM 50 mg IM once Route: IM; Site: left gluteus; dd2 04:01 Follow up: Response: No adverse reaction br2 03:01 Drug: NS 0.9% IV 1000 ml IV at 1000 ml once; to be given as a bolus over 60 minutes dd2 Route: IV; Rate: 1000 ml; Site: right antecubital; 05:05 Follow up: Response: No adverse reaction; IV Status: Completed infusion; IV Intake: br2 1000ml 03:02 Drug: Ondansetron IVP 8 mg IVP once; over 2 minutes Route: IVP; Site: right antecubital;dd2 03:59 Follow up: Response: No adverse reaction br2 03:02 Drug: NS 0.9% IV 1000 ml IV at 1 bolus Per protocol; to be given as a bolus over 60 dd2 minutes Route: IV; Rate: 1 bolus; Site: right antecubital; 04:00 Follow up: Response: No adverse reaction; IV Status: Completed infusion; IV Intake: br2 1000ml 05:58 Drug: Rocephin - Rocephin (cefTRIAXone) IVPB 1 grams IVPB once over 30 mins; (mix in 50 dd2 mL NS) Route: IVPB; Infused Over: 30 mins; Site: right antecubital; 06:19 Follow up: Response: No adverse reaction; IV Status: Completed infusion; IV Intake: [id number] 05:58 Drug: GI Cocktail without - (Maalox PO 30 ml, Lidocaine Mucous Membrane 2 % 15 dd2 ml) PO once Route: PO; 06:19 Follow up: Response: No adverse reaction dd2 Disposition Summary: 02/23/24 05:53 Discharge Ordered Notes: Location: Home sp4 Problem: new sp4 Symptoms: have improved sp4 Condition: Stable sp4 Diagnosis - Acute gastroenteritis,, acute urinary tract infection. sp4 Followup: sp4 - With: Private Physician - When: 7 - 10 days - Reason: Recheck today's complaints Discharge Instructions: - Discharge Summary Sheet sp4 - Clear Liquid Diet, Adult, [id number] sp4 Forms: - Patient Portal Instructions sp4 Prescriptions: - promethazine 25 mg Oral tablet - take 1 tablet ORAL route every 6 hours As needed PRN nausea; 30 tablet; sp4 Refills: 0, Product Selection Permitted - dicyclomine 20 mg Oral tablet - take 1 tablet ORAL route 3 times per day PRN stomach pains; 30 tablet; Refills: sp4 0, Product Selection Permitted Signatures: Dispatcher [employer] Gwyn Jade MD MD sp4 MATI ZUÑIGA RN RN dd2 Kelly Whitman RN br2
[2024-02-23 06:38] VITALS: TEMP 98.4
[2024-02-23 06:39] VITALS: O2SAT 100
[2024-02-23 06:41] VITALS: BP 112/59
== END 2024-02-23 06:20 | disposition home or self-care (01) ==
LOC: ER 02:26
DX: K52.9 Noninfective gastroenteritis and colitis, unspecified (principal); N39.0 Urinary tract infection, site not specified; Z90.49 Acquired absence of other specified parts of digestive tract; Z28.310 Unvaccinated for COVID-19
CPT/HCPCS: 96365; 96361; 85025; 81001; 36415; 81025; 83690; 80053; 96375; 96372; 99284; J2550; J2405; J7030; J0696

== ENCOUNTER 2024-02-28 10:35 | Emergency (ER) | payer OTHER ==
--- OUTSIDE RECORDS SUMMARY | 2024-02-28 10:43 | XMS REPORT | Continuity of Care Document ---
Author Name Unknown Address [address] [facility]. [address] [place] [address] [facility] [address] [facility] [address] [place] [address] Care Team Providers Care Web Merchant Name Role Phone Jess Munson MD Primary Care Physician + [phone] JESS MUNSON Attending Clinician Unavailab JESS Killian Attending Clinician Unavailab EVA Mantilla Attending Clinician Unavailable Jess Munson MD Attending Clinician +[phone] VANESSA LEYVA Attending Clinician Unavailable VANESSA LEYVA Attending Clinician Unavailable SHORTY ZAMBRANO Attending Clinician Unavailable SHORTY ZAMBRANO Attending Clinician Unavailable Shorty Draper Attending Clinician [phone] Eva Bryan MD Attending Clinician [phone] TIANNA MEI Attending Clinician Unavailable TIANNA MEI Attending Clinician Unavailable CARO BAUER Attending Clinician Unavailable CARO BAUER Attending Clinician Unavailable Caro Bauer MD Attending Clinician +[phone] Yann Ordonez Attending Clinician +[phone] Yisel Hart MD Attending Clinician [phone] YISEL HART Attending Clinician Unavailable KONRAD ORDOÑEZ Attending Clinician Unavailab KONRAD Holguin Attending Clinician Unavailab merly Ordoñez UNIX ENGINEER, Konrad Attending Clinician [phone] Tianna Young Attending Clinician [phone] ISAAC SHAY Attending Clinician Unavailable Vanessa Leyva MD Attending Clinician [phone] Jose De Jeuss Medina MD Attending Clinician +[phone] JOSE DE JESUS MEDINA Attending Clinician Unavailable JOSE DE JESUS MEDINA Attending Clinician Unavailable 2, [facility] Attending Clinician Unavailable KELLY SIMMS Attending Clinician UnavailKELLY Ferrera Attending Clinician Unavailelliott Simms MD, Kelly Tolentino Attending Clinician [phone] TIFF ISABEL Attending Clinician Unavailable TIFF ISABEL Attending Clinician Unavailable aMame UNIX ENGINEER, Tiff Attending Clinician +[phone], [facility] Attending Clinician Unavailable BONITA TRIVEDI Attending Clinician Unavailab Bonita Hernandez DO Attending Clinician [phone] Carlos Ibrahim MD Attending Clinician +[phone] Doctor Unassigned, [place] Attending Clinician U NICOLE Aparicio Attending Clinician UnavailNICOLE Sellers Attending Clinician UnavailKAMILA Deal Attending Clinician Unavailable JACINTA VOSS Attending Clinician Unavailgloria cristobal [facility], [facility], [place] Attending Clinician Henrietta vailable Meche Richard Attending Clinician + Jacinta Voss CNM Attending Clinician [phone] MECHE ROBERSON Attending Clinician Unavail able Rodrick Carlisle Attending Clinician Unava DREW Ren Attending Clinician Unavailable RODRICK PETE Attending Clinician Unavailab Wilver Weinstein MD Attending Clinician + [phone] LOVE DOWELL Attending Clinician UnavailLOVE Gonzalez Attending Clinician UnavailBRENDA Pedro Attending Clinician Unavailable Brenda Velásquez MD Attending Clinician +[phone] Fernando Acosta Attending Clinician +[phone] Ultrasound, Giovannakatelin Attending Clinician UnavailVinh Wong MD Attending Clinician [phone] VINH MONCADA Attending Clinician Unavailable VINH MONCADA Attending Clinician Unavailable Ivanna Rodriguez Attending Clinician [phone] Maddie Romeo MD Attending Clinician +[phone] MADDIE ROMEO Attending Clinician Unavailable Lab, [facility] Attending Clinician Unavailable Alayna Pyle S Attending Clinician +[phone] ANGUS DWYER Attending Clinician Unavailable Angus Dwyer DO Attending Clinician +[phone] Abdullahi Gomez MD Attending Clinician +[phone] Foreign Calvillo Attending Clinician + [phone] Edith Terry MD Attending Clinician +[phone] EDITH TERRY Attending Clinician Unavailable EDITH TERRY Attending Clinician Unavailable EVA BRYAN Admitting Clinician Unavailable Eva Bryan MD Admitting Clinician +[phone] YISEL HART Admitting Clinician Unavailable Yisel Hart MD Admitting Clinician +[phone] KELLY SIMMS Admitting Clinician UnavailVANESSA Garza Admitting Clinician Unavailable Vanessa Leyva MD Admitting Clinician +[phone] BRENDA VELÁSQUEZ Admitting Clinician Unavailable Brenda Velásquez MD Admitting Clinician +[phone] Edith Terry MD Admitting Clinician +[phone] EDITH TERRY Admitting Clinician Unavailable Payers Payer Name Policy Type Policy Number Effective Date Expirati on Date Source [facility] STAR [id number] 2021 00:00:00 SUPERIOR STAR [id number] 2021 00:00:00 Problems Condition Name Condition Details Condition Category Status Onset Date Resolution Date Last Treatment Date Treating Clinician Comments Source Dre Newmanadde r sludge Disease Active 2023-02 1-23 00:00: 00 [facility] Hematemesi s with nausea Hematemesi s with nausea Disease Active 2023-02 0-03 00:00: 00 [facility] Coffee ground emesis Coffee ground emesis Disease Active 2023-02 0-03 00:00: 00 [facility] Abdominal pain, epigastric Abdominal pain, epigastric Disease Active 2023-02 0-03 00:00: 00 [facility] Papanicola ou smear of cervix with low grade squamous intraepith elial lesion (LGSIL) Papanicola ou smear of cervix with low grade squamous intraepith elial lesion (LGSIL) Disease Active 07-06 00:00: 00 Overview: Formattin g of this note might be different from the original. LGSIL in 2021 needs repeat pap smear in 2022. 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 on Disease Active 4-12 00:00: 00 [facility] Tetrahydro cannabinol (THC) use disorder, mild, abuse Tetrahydro cannabinol (THC) use disorder, mild, abuse Disease Resolve d 5-10 00:00: 00 2022-12-25 00:00:00 2022-12-25 13:59:24 [facility] Chronic hypertensi on with superimpos ed preeclamps ia Chronic hypertensi on with superimpos ed preeclamps ia Disease Resolve d 2021-02 0-08 00:00: 00 2022-01-20 00:00:00 2022-01-20 14:17:40 [facility] Supervisio n of high risk , antepartum Supervisio n of high risk , antepartum Disease Resolve d 0 5-05 00:00: 00 2022-01-20 00:00:00 2022-01-20 14:17:35 [facility] GBS (group B Streptococ cus carrier), +RV culture, 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 Will need ABX in labor. [facility] Single liveborn, born in hospital, delivered by vaginal delivery Single liveborn, born in hospital, delivered by vaginal delivery Disease Resolve d 2021-02 0-09 00:00: 00 2021-12-22 00:00:00 2021-12-22 07:58:27 [facility] Morbid obesity with body mass index of 40.0-49.9 Morbid obesity with body mass index of 40.0-49.9 Disease Resolve d 2021-02 0-08 00:00: 00 2021-12-22 00:00:00 2021-12-22 15:59:51 [facility] Severe pre-eclamp shena in third trimester Severe pre-eclamp shena in third trimester Disease Resolve d 2021-02 0-08 00:00: 00 2021-12-22 00:00:00 2021-12-22 07:58:22 [facility] Elevated blood pressure reading without diagnosis of hypertensi on Elevated blood pressure reading without diagnosis of hypertensi on Disease Resolve d 9-08 00:00: 00 2021-12-22 00:00:00 2021-12-22 07:58:07 [facility] Proteinuri a affecting in third trimester Proteinuri a affecting in third trimester Disease Resolve d 9-08 00:00: 00 2021-12-22 00:00:00 2021-12-22 07:58:17 [facility] Intractabl e nausea and vomiting Intractabl e nausea and vomiting Disease Resolve d 2021-0 7-05 00:00: 00 2021-12-22 00:00:00 2021-12-22 07:58:09 [facility] Urinary tract infection without hematuria, site unspecifie d Urinary tract infection without hematuria, site unspecifie d Disease Resolve d 2021-0 6-02 00:00: 00 2021-12-22 00:00:00 2021-12-22 07:57:57 [facility] Nausea and vomiting during Nausea and vomiting during Disease Resolve d 2021-0 5-10 00:00: 00 2021-12-22 00:00:00 2021-12-22 07:58:11 [facility] Nausea and vomiting during Nausea and vomiting during Disease Resolve d 2021-0 5-10 00:00: 00 2021-12-22 00:00:00 2021-12-22 07:58:11 [facility] Primigravi da in second trimester Primigravi da in second trimester Disease Resolve d 2021-0 5-05 00:00: 00 2021-12-22 00:00:00 2021-12-22 07:58:15 [facility] Obesity in Obesity in Disease Resolve d 2021-0 5-05 00:00: 00 2021-12-22 00:00:00 2021-12-22 07:58:13 [facility] Chronic hypertensi on affecting Chronic hypertensi on affecting Disease Resolve d 2021-0 4-24 00:00: 00 2021-12-22 00:00:00 2021-12-22 07:58:04 [facility] BMI 40.0-44.9, adult BMI 40.0-44.9, adult Disease Resolve d 2021-0 4-23 00:00: 00 2021-12-22 00:00:00 2021-12-22 15:59:13 [facility] 15 weeks gestation of 15 weeks gestation of Disease Resolve d 2021-0 4-12 00:00: 00 2021-12-22 00:00:00 2021-12-22 07:58:01 [facility] Hyperemesi s Hyperemesi s Disease Resolve d 2021-0 5-10 00:00: 00 2021-11-26 00:00:00 2021-11-26 09:09:11 [facility] Hyperbilir ubinemia Hyperbilir ubinemia Disease Resolve d 2021-0 4-25 00:00: 00 2021-11-26 00:00:00 2021-11-26 09:09:06 [facility] Hypomagnes emia Hypomagnes emia Disease Resolve d 2021-0 4-25 00:00: 00 2021-11-26 00:00:00 2021-11-26 09:09:05 [facility] Hypocalcem ia Hypocalcem ia Disease Resolve d 2021-0 4-25 00:00: 00 2021-11-26 00:00:00 2021-11-26 09:09:03 [facility] Hypokalemi a Hypokalemi a Disease Resolve d 2021-0 4-12 00:00: 00 2021-11-26 00:00:00 2021-11-26 09:09:30 [facility] Hyponatrem ia Hyponatrem ia Disease Resolve d 2021-0 4-12 00:00: 00 2021-11-26 00:00:00 2021-11-26 09:09:33 [facility] Tachycardi a Tachycardi a Disease Resolve d 2021-0 4-12 00:00: 00 2021-11-26 00:00:00 2021-11-26 09:09:30 [facility] Nausea and vomiting in prior to 22 weeks gestation Nausea and vomiting in prior to 22 weeks gestation Disease Resolve d 2021-0 4-12 00:00: 00 2021-11-26 00:00:00 2021-11-26 09:09:43 [facility] Nausea and vomiting in prior to 22 weeks gestation Nausea and vomiting in prior to 22 weeks gestation Disease Resolve d 2021-0 4-12 00:00: 00 2021-11-26 00:00:00 2021-11-26 09:09:43 [facility] Allergies, Adverse Reactions, Alerts Allergy Name Allergy Type Status Severity Reaction(s) Onset Date Inactive Date Treating Clinician Comments Source Egg Propensi ty to adverse reaction s Active Nausea and/or Vomiting 06-29 00:00: 00 [facility] EGG DRUG INGREDI Active N/V 06-29 00:00: 00 [facility] Metoclop ramide Drug Allergy Active Extra pyramidal effects 05-31 00:00: 00 [facility] METOCLOP RAMIDE DRUG INGREDI Active Med EP Effects 05-31 00:00: 00 [facility] Social History Social Habit Start Date Stop Date Quantity Comments Source ASSERTION 2021-03-26 00:00:00 [facility] of [facility] use Current smoker [facility] Alcoholic beverage intake 2024-02-27 00:00:00 2024-02-27 00:00:00 Current drinker of alcohol (finding) [facility] Alcohol Comment 2023-11-26 00:00:00 2023-11-26 00:00:00 ocassional [facility] Tobacco use and exposure 2023-11-26 00:00:00 2023-11-26 00:00:00 Smokeless tobacco non-user [facility] History of Social function 2023-11-22 00:00:00 2023-11-22 00:00:00 [facility] Alcohol intake 2023-06-21 00:00:00 2023-06-21 00:00:00 Ex-drinker (finding) [facility] Exposure to SARS-CoV-2 (event) 2022-01-10 00:00:00 2022-01-20 14:04:00 Not sure [facility] Tobacco Comment 2021-09-15 00:00:00 2021-09-15 00:00:00 marijuana,no nicotine stopped for [facility] Sex assigned at 1995 00:00:00 1995 00:00:00 [facility] Smoking Status Start Date Stop Date Source Ex-smoker 2023-11-26 00:00:00 2023-11-26 00:00:00 U [facility] Medications Ordered Medication Name Filled Medication Name Start Date Stop Date Current Medication? Ordering Clinician Indication Dosage Frequency Signature (SIG) Comments Components Source phentermine -topiramate (QSYMIA) 3.75-23 mg per capsule 02-26 00:00: 00 Yes [id number] 104 1{capsu le} Take 1 capsule by mouth in the morning. [facility] zolpidem 5 mg tablet 02-26 00:00: 00 Yes [id number] 5mg Take 1 tablet by mouth at bedtime as needed for Insomnia. [facility] ondansetron (ZOFRAN-ODT ) disintegrat ing tablet 4 mg 02-21 09:45: 00 02-21 08:46 :00 No 4mg 4 mg, Oral, ONCE, 1 dose, [facility] Sun02/22/24 [facility] 0345[facility] (ROCEPHIN[facility] 1,000 mg in water for injection, sterile 10 mL IV Push 02-21 08:30: 00 02-21 08:31 :00 No 1000mg 1,000 mg, Intravenou s, ONCE, 1 dose, On Sun02/22/24 at 0230, 10 mL, Reason for Anti-Infec tive: Empiric Therapy for Suspected Infection, Empiric Therapy Site: Urine, Duration of therapy: Once (ED) [facility] iopamidol (ISOVUE 370-500 mL) injection 80 mL 02-21 08:30: 00 02-21 08:30 :00 No [id number] 80mL 80 mL, Intravenou s, ONCE, 1 dose, On Sun02/22/24 at 0230, Routine [facility] maalox/diph enhydrAMINE :lidocaine2 %viscous 1:1:1: suspension (COMPOUNDED ) 02-21 07:45: 00 02-21 07:36 :00 No 15mL 15 mL, Oral, ONCE, 1 dose, On Sun02/22/24 at 0145, RACHAEL [facility] NaCl 0.9% (NS) bolus infusion 1,000 mL 02-21 06:45: 00 02-21 08:11 :00 No 1000mL at 999 mL/hr, 1,000 mL, IV Infusion, ONCE, 1 dose, On Sun02/22/24 at 0045, RACHAEL [facility] morpHINE (4 mg/mL) injection 4 mg 02-21 06:00: 00 02-21 06:13 :00 No 4mg 4 mg, Slow IV Push, ONCE, 1 dose, On Sun02/22/24 at 0000, STAT [facility] ondansetron (ZOFRAN (PF)) injection 8 mg 02-21 06:00: 00 02-21 06:17 :00 No 8mg 8 mg, Slow IV Push, ONCE, 1 dose, On Sun02/22/24 at 0000, Administer over 2-5 Minutes, 4 mL [facility] cefdinir 300 mg capsule 02-21 00:00: 00 03-01 05:59 :00 Yes [id number] 300mg Take 1 capsule by mouth every 12 (twelve) hours for 7 days. [facility] ondansetron 4 mg disintegrat ing tablet 02-21 00:00: 00 02-26 00:00 :00 No [id number] 4mg Take 1 tablet by mouth every 8 (eight) hours as needed for Nausea and Vomiting (N/V). [facility] acetaminoph en (TYLENOL EXTRA STRENGTH) 500 mg tablet 2023-02 00:00: 00 02-26 00:00 :00 No [id number] 1000mg Take 2 tablets by mouth every 8 (eight) hours for 15 days. [facility] ibuprofen 800 mg tablet 2023-02 00:00: 00 02-26 00:00 :00 No [id number] 800mg Take 1 tablet by mouth every 8 (eight) hours for 15 days. [facility] HYDROcodone -acetaminop hen (NORCO 5) tablet 1 tablet 2023-02 18:30: 00 01-28 19:00 :00 No 1{tbl} 1 tablet, Oral, ONCE, 1 dose, On Sun01/29/24 at 1230, Routine, PACU [facility] lactated ringers IV infusion 1,000 mL 2023-02 18:30: 00 01-28 22:20 :16 No 1000mL at 50 mL/hr, 1,000 mL, IV Infusion, CONTINUOUS , Starting on Sun01/29/24 at 1230, Until Sun01/29/24 at 1620, Routine, PACU [facility] HYDROmorphO ne (DILAUDID) injection 0.2 mg 2023-02 18:19: 17 01-28 22:20 :16 No .2mg 0.2 mg, Slow IV Push, Q5MIN PRN, 10 doses, Starting on Sun01/29/24 at 1219, Until Sun01/29/24 at 1620, Routine, Pain (scale 7-10), PACU, Is this medication approved by a Faculty level provider? 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 Restricted medication : RADHA EVANS [facility] FENTanyl (PF) (SUBLIMAZE) injection 25 mcg 2023-02 18:19: 17 01-28 22:20 :16 No 25ug 25 mcg, Slow IV Push, Q5MIN PRN, 4 doses, Starting on Sun01/29/24 at 1219, Until Sun01/29/24 at 1620, Routine, Pain Scale 4-6, PACU [facility] ondansetron (ZOFRAN (PF)) injection 4 mg 2023-02 18:19: 17 01-28 22:20 :16 No 4mg 4 mg, Slow IV Push, PRN, 1 dose, Starting on Sun01/29/24 at 1219, Until Sun01/29/24 at 1620, Administer over 2-5 Minutes, 2 mL, PACU [facility] bupivacaine -epinephrin e-pf (SENSORCAIN E W/EPINEPHRI NE) 0.25 %-1:200,000 30 mL, lidocaine 1% (PF) (XYLOCAINE) 30 mL 2023-02 16:57: 00 01-28 18:29 :17 No PRN, Starting on Sun01/29/24 at 1057, Intra-op [facility] sodium chloride 0.9 % irrigation solution 2023-02 16:56: 00 01-28 18:29 :17 No PRN, Starting on Sun01/29/24 at 1056, Until Sun01/29/24 at 1229, Intra-op [facility] acetaminoph en (TYLENOL) 325 mg tablet 2023-02 00:00: 00 02-05 05:59 :00 Yes [id number] 650mg Take 2 tablets by mouth every 6 (six) hours for 7 days. [facility] ibuprofen 800 mg tablet 2023-02 00:00: 00 02-05 05:59 :00 Yes [id number] 800mg Take 1 tablet by mouth every 6 (six) hours for 7 days. [facility] traMADoL 50 mg tablet 2023-02 00:00: 00 02-05 05:59 :00 Yes [id number] 50mg Take 1 tablet by mouth every 8 (eight) hours for 7 days. Indication s: acute pain, chronic pain [facility] HYDROcodone -acetaminop hen 5-325 mg tablet 2023-02 00:00: 00 02-05 05:59 :00 Yes [id number] 1{tbl} Take 1 tablet by mouth every 6 (six) hours as needed for Pain (scale 7-10) for up to 7 days. Indication s: acute pain [facility] phentermine 37.5 mg tablet 2023-02 00:00: 00 02-26 00:00 :00 No [id number] 104 37.5mg Take 1 tablet by mouth daily with breakfast. [facility] zolpidem 5 mg tablet 2023-02 00:00: 00 02-26 00:00 :00 No [id number] 5mg Take 1 tablet by mouth at bedtime as needed for Insomnia. [facility] ondansetron 8 mg tablet 2023-02 2-09 00:00: 00 02-26 00:00 :00 No [id number] 8mg Take 1 tablet by mouth every 8 (eight) hours as needed for Nausea and Vomiting (N/V). [facility] ketorolac (TORADOL) injection 30 mg 2023-02 11:30: 00 01-11 10:39 :00 No 30mg 30 mg, Slow IV Push, ONCE, 1 dose, On 01/12/24 at 0530, Routine [facility] fentanyl PF (SUBLIMAZE (PF)) injection 50 mcg 2023-02 11:15: 00 01-11 11:15 :00 No 50ug 50 mcg, Slow IV Push, ONCE, 1 dose, On 01/12/24 at 0515, Routine [facility] ondansetron (ZOFRAN (PF)) injection 4 mg 2023-02 10:30: 00 01-11 10:29 :00 No 4mg 4 mg, Slow IV Push, ONCE, 1 dose, On 01/12/24 at 0430, Administer over 2-5 Minutes, 2 mL [facility] fentanyl PF (SUBLIMAZE (PF)) injection 50 mcg 2023-02 10:30: 00 01-11 10:40 :00 No 50ug 50 mcg, Slow IV Push, ONCE, 1 dose, On 01/12/24 at 0430, RACHAEL [facility] ondansetron (ZOFRAN (PF)) injection 4 mg 2023-02 10:15: 00 01-11 10:07 :00 No 4mg 4 mg, Slow IV Push, ONCE, 1 dose, On 01/12/24 at 0415, Administer over 2-5 Minutes, 2 mL [facility] traMADoL (ULTRAM) 50 mg tablet 2023-02 00:00: 00 02-26 00:00 :00 No [id number] 50mg Take 1 tablet by mouth every 6 (six) hours as needed for Pain (scale 7-10). Indication s: acute pain [facility] dicyclomine 20 mg tablet 2023-02 00:00: 00 02-26 00:00 :00 No [id number] 20mg Take 1 tablet by mouth every 6 (six) hours as needed for Abdominal pain. [facility] ondansetron (ZOFRAN) 4 mg tablet 2023-02 00:00: 00 01-27 00:00 :00 No [id number] 4mg Take 1 tablet by mouth every 8 (eight) hours as needed for Nausea and Vomiting (N/V). [facility] ondansetron 8 mg tablet 2023-02 00:00: 00 01-24 00:00 :00 No [id number] 8mg Take 1 tablet by mouth every 8 (eight) hours as needed for Nausea and Vomiting (N/V). [facility] ondansetron 4 mg disintegrat ing tablet 2023-02 00:00: 01-10 00:00 :00 No [id number] 4mg Take 1 tablet by mouth every 8 (eight) hours as needed for Nausea and Vomiting (N/V). [facility] phentermine 37.5 mg tablet 2023-02 00:00: 00 01-24 00:00 :00 No [id number] 104 37.5mg Take 1 tablet by mouth daily with breakfast. [facility] zolpidem 5 mg tablet 2023-02 00:00: 00 01-24 00:00 :00 No [id number] 5mg Take 1 tablet by mouth at bedtime as needed for Insomnia. [facility] ondansetron 4 mg disintegrat ing tablet 2023-02 00:00: 00 01-09 00:00 :00 No [id number] 4mg Take 1 tablet by mouth every 8 (eight) hours as needed for Nausea and Vomiting (N/V). [facility] ondansetron 4 mg tablet 2023-02 00:00: 00 01-10 00:00 :00 No [id number] 4mg Take 1 tablet by mouth every 8 (eight) hours as needed for Nausea and Vomiting (N/V). [facility] TRAZODONE 100 mg tablet 2023-02 0 00:00: 00 02-26 00:00 :00 No [id number] 100mg TAKE 1 TABLET BY MOUTH EVERYDAY AT BEDTIME [facility] pantoprazol e 40 mg EC tablet 11-18 00:00: 00 Yes [id number] 40mg Take 1 tablet by mouth in the morning. [facility] phentermine 37.5 mg tablet 11-18 00:00: 00 12-24 00:00 :00 No [id number] 104 37.5mg Take 1 tablet by mouth daily with breakfast. [facility] zolpidem 5 mg tablet 11-18 00:00: 00 12-24 00:00 :00 No [id number] 5mg Take 1 tablet by mouth at bedtime as needed for Insomnia. [facility] proMETHazin e (PHENERGAN) 12.5 mg in NS 50 mL IV piggyback (CNR) 11-17 15:30: 00 11-17 15:49 :00 No 12.5mg 12.5 mg, IV Piggyback, at 200 mL/hr Administer over 15 Minutes, ONCE, 1 dose, On 11/18/23 at 1030, RACHAEL [facility] morpHINE (4 mg/mL) injection 4 mg 11-17 15:30: 00 11-17 15:34 :00 No 4mg 4 mg, Slow IV Push, ONCE, 1 dose, On 11/18/23 at 1030, STAT [facility] ketorolac (TORADOL) injection 30 mg 11-17 15:00: 00 11-17 14:09 :00 No 30mg 30 mg, Slow IV Push, ONCE, 1 dose, On 11/18/23 at 1000, RACHAEL [facility] famotidine (PEPCID (PF)) injection 20 mg 11-17 14:15: 00 11-17 14:09 :00 No 20mg 20 mg, Slow IV Push, ONCE, 1 dose, On Sun11/18/23 at 0915, [facility] iopamidol (ISOVUE 370-500 mL) injection 100 mL 11-17 13:30: 00 11-17 13:45 :00 No [id number] 100mL 100 mL, Intravenou s, ONCE, 1 dose, On Sun11/18/23 at 0845, Routine [facility] NaCl 0.9% (NS) IV infusion 1,000 mL 11-17 13:00: 00 11-17 15:15 :00 No 1000mL at 999 mL/hr, Intravenou s, ONCE, 1 dose, On Sun11/18/23 at 0800, [facility] proMETHazin e (PHENERGAN) 12.5 mg in NS 50 mL IV piggyback (CNR) 11-17 12:30: 00 11-17 13:33 :00 No 12.5mg 12.5 mg, IV Piggyback, at 200 mL/hr Administer over 15 Minutes, ONCE, 1 dose, On Sun11/18/23 at 0730, [facility] fentanyl PF (SUBLIMAZE (PF)) injection 100 mcg 11-17 11:15: 00 11-17 11:16 :00 No 100ug 100 mcg, Slow IV Push, ONCE, 1 dose, On Sun11/18/23 at 0615, Routine [facility] ondansetron (ZOFRAN (PF)) injection 8 mg 11-17 11:00: 00 11-17 11:10 :00 No 8mg 8 mg, Slow IV Push, ONCE, 1 dose, On Sun11/18/23 at 0600, [facility] sodium chloride (NS) injection 5 mL 11-17 10:51: 45 Yes 5mL 5 mL, Intravenou s, PRN, Starting on Sun11/18/23 at 0551, Until Discontinu ed, Routine, IV line flushing [facility] proMETHazin e 25 mg tablet 11-17 00:00: 00 02-26 00:00 :00 No [id number] 25mg Take 1 tablet by mouth every 6 (six) hours as needed for Nausea and Vomiting (N/V). [facility] traMADoL 50 mg tablet 11-17 00:00: 00 01-28 00:00 :00 No [id number] 50mg Take 1 tablet by mouth every 6 (six) hours as needed (pain). Indication s: acute pain [facility] zolpidem 5 mg tablet 11-17 00:00: 00 11-17 00:00 :00 No [id number] 5mg Take 1 tablet by mouth at bedtime as needed for Insomnia. [facility] KCL (KLOR-CON M20) tablet 20 mEq 11-07 19:30: 00 11-07 19:56 :00 No 20meq 20 mEq, Oral, ONCE, 1 dose, On [place] 11/08/23 at 1430, [facility] proMETHazin e (PHENERGAN) 12.5 mg in NS 50 mL IV piggyback (CNR) 11-07 17:45: 00 11-07 18:53 :00 No 12.5mg 12.5 mg, IV Piggyback, at 200 mL/hr Administer over 15 Minutes, ONCE, 1 dose, On [place] 11/08/23 at 1245, [facility] ondansetron (ZOFRAN (PF)) injection 4 mg 11-07 16:30: 00 11-07 16:38 :00 No 4mg 4 mg, Slow IV Push, ONCE, 1 dose, On [place] 11/08/23 at 1130, [facility] famotidine (PEPCID (PF)) injection 20 mg 11-07 16:30: 00 11-07 16:38 :00 No 20mg 20 mg, Slow IV Push, ONCE, 1 dose, On [place] 11/08/23 at 1130, [facility] NaCl 0.9% (NS) bolus infusion 1,000 mL 11-07 16:30: 00 11-07 19:53 :00 No 1000mL at 999 mL/hr, 1,000 mL, IV Infusion, ONCE, 1 dose, On [place] 11/08/23 at 1130, [facility] morpHINE (4 mg/mL) injection 4 mg 11-07 15:45: 00 11-07 18:39 :00 No 4mg 4 mg, Slow IV Push, ONCE, 1 dose, On [place] 11/08/23 at 1045, [facility] ondansetron 4 mg disintegrat ing tablet 11-07 00:00: 00 11-12 04:59 :00 No [id number] 4mg Take 1 tablet by mouth every 8 (eight) hours as needed for Nausea and Vomiting (N/V) for up to 4 days. [facility] zolpidem 5 mg tablet 10-18 00:00: 00 11-15 00:00 :00 No [id number] 5mg Take 1 tablet by mouth at bedtime as needed for Insomnia. [facility] ergocalcife rol, vitamin d2, (VITAMIN D2) 1,250 mcg (50,000 unit) capsule 10-15 00:00: 00 Yes [id number] Take 1 capsule by mouth weekly. [facility] phentermine 37.5 mg tablet 10-15 00:00: 00 11-18 00:00 :00 No [id number] 37.5mg Take 1 tablet by mouth daily with breakfast. [facility] ergocalcife rol, vitamin d2, (VITAMIN D2) 1,250 mcg (50,000 unit) capsule 10-02 00:00: 00 10-14 00:00 :00 No [id number] Take 1 capsule by mouth weekly. [facility] zolpidem 5 mg tablet 7- 00:00: 00 10-15 00:00 :00 No [id number] 5mg Take 1 tablet by mouth at bedtime as needed for Insomnia. [facility] phentermine 37.5 mg tablet 0 7-25 00:00: 00 10-14 00:00 :00 No [id number] 37.5mg Take 1 tablet by mouth daily with breakfast. [facility] phentermine 37.5 mg tablet 0 6-17 00:00: 00 09-11 00:00 :00 No [id number] 37.5mg Take 1 tablet by mouth daily with breakfast. [facility] zolpidem 5 mg tablet 0 6-17 00:00: 00 09-11 00:00 :00 No [id number] 5mg Take 1 tablet by mouth at bedtime as needed for Insomnia. [facility] traZODone 100 mg tablet 0 6-05 00:00: 00 12-09 00:00 :00 No [id number] 100mg Take 1 tablet by mouth at bedtime. [facility] acetaminoph en (TYLENOL) tablet 650 mg 02 17:30: 00 06-20 17:25 :00 No 650mg 650 mg, Oral, ONCE, 1 dose, On Sun06/21/23 at 1230, [facility] sulfamethox azole-trime thoprim 800-160 mg per tablet -02 00:00: 00 08-05 00:00 :00 No [id number] 1{tbl} Take 1 tablet by mouth every 12 (twelve) hours. [facility] phentermine 37.5 mg tablet 0 4-09 00:00: 00 08-05 00:00 :00 No [id number] 37.5mg Take 1 tablet by mouth daily with breakfast. [facility] traZODone 100 mg tablet 0 3-04 00:00: 00 07-24 00:00 :00 No [id number] 100mg Take 1 tablet by mouth at bedtime. [facility] phentermine 37.5 mg tablet 0 2-22 00:00: 00 05-28 00:00 :00 No [id number] 37.5mg Take 1 tablet by mouth daily with breakfast. [facility] zolpidem 5 mg tablet 04-05 00:00: 00 08-05 00:00 :00 No [id number] 5mg Take 1 tablet by mouth at bedtime as needed for Insomnia. [facility] phentermine 37.5 mg tablet 03-02 00:00: 00 04-11 00:00 :00 No [id number] 37.5mg Take 1 tablet by mouth daily with breakfast. [facility] zolpidem 5 mg tablet 02-20 00:00: 00 04-05 00:00 :00 No [id number] 5mg Take 1 tablet by mouth at bedtime as needed for Insomnia. [facility] phentermine 37.5 mg tablet 2022-02 00:00: 00 03-02 00:00 :00 No [id number] 37.5mg Take 1 tablet by mouth daily with breakfast. [facility] traZODone 100 mg tablet 2022-02 2 00:00: 00 04-22 00:00 :00 No [id number] 100mg Take 1 tablet by mouth at bedtime. [facility] phentermine 37.5 mg tablet 2022-02 00:00: 00 01-26 00:00 :00 No [id number] 37.5mg Take 1 tablet by mouth daily with breakfast. [facility] zolpidem 5 mg tablet 2022-02 00:00: 00 02-19 00:00 :00 No [id number] 5mg Take 1 tablet by mouth at bedtime as needed for Insomnia. [facility] TRAZODONE 50 mg tablet 2022-02- 00:00: 00 01-24 00:00 :00 No [id number] 50mg TAKE 1 TABLET BY MOUTH EVERYDAY AT BEDTIME [facility] ramelteon 8 mg tablet 2022-02-16 00:00: 00 01-24 00:00 :00 No [id number] 8mg Take 1 tablet by mouth at bedtime. [facility] Doxepin 6 mg Tab 2022-02 00:00: 00 01-04 00:00 :00 No [id number] 6mg Take 6 mg by mouth at bedtime. [facility] ergocalcife rol, vitamin d2, (VITAMIN D2) 1,250 mcg (50,000 unit) capsule 2022-02 00:00: 00 09-30 00:00 :00 No [id number] Take 1 capsule by mouth weekly. [facility] traZODone 50 mg tablet 2022-02 00:00: 00 01-16 00:00 :00 No [id number] 50mg Take 1 tablet by mouth at bedtime. [facility] medroxyPROG ESTERone (DEPO-PROVE RA) syringe 150 mg 2021-02 21:15: 00 01-20 20:41 :00 No [id number] 150mg [facility] NIFEdipine ER 30 mg tablet 2021-02- 00:00: 00 01-20 00:00 :00 No [id number] 30mg Take 1 tablet by mouth in the morning. [facility] NIFEdipine ER tablet 30 mg 2021-02 0-10 04:00: 00 Yes 30mg 30 mg, Oral, DAILY, First dose on 11/27/21 at 2300, Until Discontinu ed, Routine [facility] vitamin w/FA tablet 2021-02 0- 00:00: 00 01-20 00:00 :00 No [id number] 1{tbl} Take 1 tablet by mouth in the morning. [facility] docusate 100 mg capsule 2021-02 0- 00:00: 00 01-20 00:00 :00 No [id number] 200mg Take 2 capsules by mouth once daily as needed for Constipati on. [facility] ferrous sulfate 325 mg (65 mg iron) tablet 2021-02 0- 00:00: 00 01-20 00:00 :00 No [id number] 325mg Take 1 tablet by mouth in the morning and 1 tablet in the evening. [facility] ibuprofen 600 mg tablet 2021-02 00:00: 00 01-20 00:00 :00 No [id number] 600mg Take 1 tablet by mouth every 6 (six) hours as needed (Pain). Take with food or milk. [facility] D5W 0.45% NaCl (1/2NS) IV infusion 1,000 mL 2021-02 19:38: 00 Yes 1000mL at 50 mL/hr, 1,000 mL, IV Infusion, CONTINUOUS , Starting on 11/27/21 at 1445, Until Discontinu ed, Routine [facility] HYDROcodone -acetaminop hen (NORCO 5) 5-325 mg tablet 1 tablet 2021-02 12:41: 25 Yes 1{tbl} 1 tablet, Oral, Q6HPRN, Starting on 11/27/21 at 0741, Until Discontinu ed, Routine, Pain (scale 7-10) [facility] ibuprofen (IBU) tablet 600 mg 2021-02 12:41: 25 Yes 600mg 600 mg, Oral, Q6HPRN, Starting on 11/27/21 at 0741, Until Discontinu ed, Routine, Pain (scale 4-6) [facility] acetaminoph en (TYLENOL) tablet 650 mg 2021-02 12:41: 25 Yes 650mg 650 mg, Oral, Q6HPRN, Starting on 11/27/21 at 0741, Until Discontinu ed, Routine, Pain (scale 1-3) [facility] diphenhydrA MINE (BENADRYL) tablet 25 mg 2021-02 12:41: 25 Yes 25mg 25 mg, Oral, Q6HPRN, Starting on 11/27/21 at 0741, Until Discontinu ed, Routine, Sleep, Itching [facility] ondansetron (ZOFRAN (PF)) injection 4 mg 2021-02 12:41: 25 Yes 4mg 4 mg, Slow IV Push, Q8HPRN, Starting on 10/9/22 at 0741, Until Discontinu ed, Routine, Nausea and Vomiting (N/V) [facility] simethicone (GAS RELIEF (SIMETHICON E)) chewable tablet 160 mg 2021-02 12:41: 25 Yes 160mg 160 mg, Oral, PC+HSPRN, Starting on Sun11/27/21 at 0741, Until Discontinu ed, Routine, Gas [facility] docusate (COLACE) capsule 200 mg 2021-02 12:41: 25 Yes 200mg 200 mg, Oral, QDAILYPRN, Starting on 11/27/21 at 0741, Until Discontinu ed, Routine, Constipati on [facility] magnesium hydroxide (MILK OF MAGNESIA) 400 mg/5 mL suspension 30 mL 2021-02 12:41: 25 Yes 30mL 30 mL, Oral, QDAILYPRN, Starting on Sun11/27/21 at 0741, Until Discontinu ed, Routine, Constipati on [facility] benzocaine- menthol (DERMOPLAST ) 20-0.5 % topical spray 2021-02 12:41: 25 Yes Topical, PRN, Starting on Sun11/27/21 at 0741, Until Discontinu ed, Routine, Perineum discomfort [facility] calcium gluconate 100 mg/mL (10%) injection 1,000 mg 2021-02 12:40: 21 Yes 1000mg 1,000 mg, Slow IV Push, PRN - SEE INSTRUCTIO NS, Starting on Sun11/27/21 at 0740, Until Discontinu ed, Routine, magnesium toxicity [facility] magnesium sulfate 4 mEq/mL (50 %) injection 32.48 mEq 2021-02 12:40: 21 Yes 4g 32.48 mEq (4 g), Slow IV Push, PRN - SEE INSTRUCTIO NS, Starting on 11/27/21 at 0740, Until Discontinu ed, Routine, For seizure activity (patient not on magnesium sulfate) [facility] magnesium sulfate 4 mEq/mL (50 %) injection 16.24 mEq 2021-02 12:40: 21 Yes 2g 16.24 mEq (2 g), Slow IV Push, PRN - SEE INSTRUCTIO NS, 2 doses, Starting on 11/27/21 at 0740, Until Discontinu ed, Routine, For seizure activity (patient already on magnesium sulfate) [facility] labetaloL (NORMODYNE) injection 20 mg 2021-02 0 [...] Hypertensi ve Emergency in [Order 4 End] [facility] oxytocin (PITOCIN) 30 units in NS 500 mL IV infusion 2021-02 02:10: 24 11-27 12:40 :54 No 2mU/min at 2-40 mL/hr, IV Infusion, TITRATE, Starting on 11/26/21 at 2110, Until 11/27/21 at 0740, Routine [facility] penicillin g pot in dextrose 3 million unit/50 mL RTU iv piggyback 3 Million Units 2021-02 22:15: 00 11-27 12:40 :54 No 310 3 Million Units, IV Piggyback, Q4H ABX, First dose on 11/26/21 at 1715, Until Discontinu ed, Administer over 60 Minutes, 50 mL
Reas on for Anti-Infec tive: Empiric Non-Surgic al Prophylaxi s
Durat ion of therapy: 72 hours [facility] fentaNYL-ro pivacaine 2 mcg/mL-0.1 % (PF) in NS 200 mL epidural infusion RTU 2021-02 20:46: 00 11-27 13:52 :31 No Epidural, ONCE INTRA PROCEDURE, Starting on 11/26/21 at 1546, Until Oliver 11/27/21 at 0852, Routine, Intra-op [facility] lidocaine-e pinephrine (XYLOCAINE W/EPINEPHRI NE) 1.5 %-1:200,000 injection 2021-02 20:43: 00 Yes Epidural, ONCE INTRA PROCEDURE, Starting on 11/26/21 at 1543, Until Discontinu ed, Routine, Intra-op [facility] penicillin g potassium 5 Million Units in NaCl 0.9% (NS) 100 mL MINI-BAG 2021-02 18:15: 00 11-26 19:13 :00 No 510 5 Million Units, IV Piggyback, ONCE, 1 dose, On 11/26/21 at 1315, Administer over 60 Minutes, 100 mL
Reas on for Anti-Infec tive: Empiric Non-Surgic al Prophylaxi s
Durat ion of therapy: 72 hours [facility] NaCl 0.9% (NS) IV infusion 1,000 mL 2021-02 0 18:00: 00 11-27 12:40 :54 No 1000mL at 50 mL/hr, IV Infusion, CONTINUOUS , Starting on 11/26/21 at 1300, Until 11/27/21 at 0740, Routine [facility] oxytocin (PITOCIN) 30 units in NS 500 mL IV infusion 2021-02 0 14:31: 25 11-27 02:11 :24 No 2mU/min at 2-40 mL/hr, IV Infusion, TITRATE, Starting on 11/26/21 at 0931, Until 11/26/21 at 2111, Routine [facility] FENTanyl PF (SUBLIMAZE (PF)) injection 100 mcg 2021-02 13:50: 58 11-27 12:40 :54 No 100ug 100 mcg, Slow IV Push, Q1HPRN, Starting on 11/26/21 at 0850, Until 11/27/21 at 0740, Routine, Pain (scale 4-6), Pain (scale 7-10) [facility] misoprostol (CYTOTEC) quarter-tab let 25 mcg 2021-02 13:45: 00 11-26 13:22 :00 No 25ug 25 mcg, Vaginal, ONCE, 1 dose, On 11/26/21 at 0845, Routine [facility] butalbital- acetaminoph en-caff (ESGIC) 50-325-40 mg tablet 1 tablet 2021-02 09:45: 00 11-26 08:57 :00 No 1{tbl} 1 tablet, Oral, ONCE NOW, 1 dose, On 11/26/21 at 0445, Routine [facility] magnesium sulfate in water for injection 20 gram/500 mL (4 %) IV infusion 2021-02 09:00: 00 Yes 2g/h 2 g/hr (50 mL/hr), IV Infusion, CONTINUOUS , Starting on 11/26/21 at 0400, Until Discontinu ed, Routine [facility] D5W 0.45% NaCl (1/2NS) IV infusion 1,000 mL 2021-02 09:00: 11-27 12:40 :54 No 1000mL at 75 mL/hr, 1,000 mL, IV Infusion, CONTINUOUS , Starting on 11/26/21 at 0400, Until 11/27/21 at 0740, Routine [facility] promethazin e 6.25 mg/5 mL solution 9-21 00:00: 00 11-28 00:00 :00 No [id number] 12.5mg Take 10 mL by mouth every 4 (four) hours as needed for Nausea and Vomiting (N/V). [facility] promethazin e 6.25 mg/5 mL solution 30 00:00: 00 11-09 00:00 :00 No [id number] 12.5mg Take 10 mL by mouth every 4 (four) hours as needed for Nausea and Vomiting (N/V). [facility] promethazin e 6.25 mg/5 mL solution 8- 00:00: 00 10-18 00:00 :00 No [id number] 12.5mg Take 10 mL by mouth every 4 (four) hours as needed for Nausea and Vomiting (N/V). [facility] promethazin e 6.25 mg/5 mL solution 6-23 00:00: 00 09-15 00:00 :00 No [id number] 12.5mg Take 10 mL by mouth every 4 (four) hours as needed for Nausea and Vomiting (N/V). [facility] proMETHazin e 25 mg tablet 0 5-29 00:00: 00 09-15 00:00 :00 No [id number] 25mg Take 1 tablet by mouth every 6 (six) hours as needed for Nausea and Vomiting (N/V). [facility] promethazin e 6.25 mg/5 mL solution 5-06 00:00: 00 06-29 00:00 :00 No [id number] 12.5mg Take 10 mL by mouth every 4 (four) hours as needed for Nausea and Vomiting (N/V). [facility] vit 33-iron-fol ic-dha (SELECT-OB + DHA) 29 mg iron-1 mg -250 mg combo pack 06-23 00:00: 00 07-17 00:00 :00 No [id number] 1{packe t} Take 1 Packet by mouth daily. [facility] proMETHazin e 25 mg suppository 06-22 00:00: 00 09-15 00:00 :00 No [id number] 25mg Insert 1 Suppositor y into rectum every 4 (four) hours as needed for Nausea and Vomiting (N/V). [facility] Immunizations Ordered Immunization Name Filled Immunization Name Date Status Comments Source HPV9 2022-12-25 00:00:00 Completed [facility] 2022-12-25 00:00:00 Completed [facility] HPV9 2022-12-25 00:00:00 Completed [facility] 2022-12-25 00:00:00 Completed [facility] HPV9 2022-12-25 00:00:00 Completed [facility] HPV9 2022-12-25 00:00:00 Completed [facility] HPV9 2022-12-25 00:00:00 Completed [facility] TDAP 2021-09-29 00:00:00 Completed [facility] TDAP 2021-09-29 00:00:00 Completed [facility] TDAP 2021-09-29 00:00:00 Completed [facility] TDAP 2021-09-29 00:00:00 Completed [facility] TDAP 2021-09-29 00:00:00 Completed [facility] TDAP 2021-09-29 00:00:00 Completed [facility] TDAP 2021-09-29 00:00:00 Completed [facility] TDAP 2021-09-29 00:00:00 Completed [facility] TDAP 2021-09-29 00:00:00 Completed [facility] TDAP 2021-09-29 00:00:00 Completed [facility] TDAP 2021-09-29 00:00:00 Completed [facility] TDAP 2021-09-29 00:00:00 Completed [facility] TDAP 2021-09-29 00:00:00 Completed [facility] TDAP 2021-09-29 00:00:00 Completed [facility] TDAP 2021-09-29 00:00:00 Completed [facility] TDAP 2021-09-29 00:00:00 Completed [facility] TDAP 2021-09-29 00:00:00 Completed [facility] TDAP 2021-09-29 00:00:00 Completed [facility] TDAP 2021-09-29 00:00:00 Completed [facility] TDAP 2021-09-29 00:00:00 Completed [facility] TDAP 2021-09-29 00:00:00 Completed [facility] TDAP 2021-09-29 00:00:00 Completed [facility] TDAP 2021-09-29 00:00:00 Completed [facility] TDAP 2021-09-29 00:00:00 Completed [facility] TDAP 2009-10-06 00:00:00 Completed HEPATITIS A 2009-10-06 [...] Trivalent 1997-11-23 00:00:00 Completed TDAP Unknown Completed [facility] TDAP Unknown Completed [facility] TDAP Unknown Completed [facility] TDAP Unknown Completed [facility] TDAP Unknown Completed [facility] TDAP Unknown Completed [facility] DTaP, Unspecified Formulation Unknown Completed [facility] HEPATITIS A Unknown Completed [facility] Hep B, Adol or Pedi Dosage Unknown Completed [facility] HIB 4 Dose Schedule Unknown Completed [facility] Haemophilus influenzae type b vaccine, conjugate unspecified formulation Unknown Completed [facility] HPV Unknown Completed [facility] Meningococcal Polysaccharide (groups A, C, Y and W-135) conjugate vaccine (MCV4P) Unknown Completed [facility] MMR Unknown Completed [facility] IPV Unknown Completed [facility] Poliovirus, Live, Oral, Trivalent Unknown Completed [facility] HPV9 Unknown Completed [facility] HEPATITIS A Unknown Completed [facility] Haemophilus influenzae type b vaccine, conjugate unspecified formulation Unknown Completed [facility] HPV Unknown Completed [facility] Meningococcal Polysaccharide (groups A, C, Y and W-135) conjugate vaccine (MCV4P) Unknown Completed [facility] HPV9 Unknown Completed [facility] TDAP Unknown Completed [facility] DTaP, Unspecified Formulation Unknown Completed [facility] Hep B, Adol or Pedi Dosage Unknown Completed [facility] HIB 4 Dose Schedule Unknown Completed [facility] MMR Unknown Completed [facility] IPV Unknown Completed [facility] Poliovirus, Live, Oral, Trivalent Unknown Completed [facility] TDAP Unknown Completed [facility] DTaP, Unspecified Formulation Unknown Completed [facility] HEPATITIS A Unknown Completed [facility] Hep B, Adol or Pedi Dosage Unknown Completed [facility] HIB 4 Dose Schedule Unknown Completed [facility] Haemophilus influenzae type b vaccine, conjugate unspecified formulation Unknown Completed [facility] HPV Unknown Completed [facility] Meningococcal Polysaccharide (groups A, C, Y and W-135) conjugate vaccine (MCV4P) Unknown Completed [facility] MMR Unknown Completed [facility] IPV Unknown Completed [facility] Poliovirus, Live, Oral, Trivalent Unknown Completed [facility] HPV9 Unknown Completed [facility] TDAP Unknown Completed [facility] DTaP, Unspecified Formulation Unknown Completed [facility] HEPATITIS A Unknown Completed [facility] Hep B, Adol or Pedi Dosage Unknown Completed [facility] HIB 4 Dose Schedule Unknown Completed [facility] Haemophilus influenzae type b vaccine, conjugate unspecified formulation Unknown Completed [facility] HPV Unknown Completed [facility] Meningococcal Polysaccharide (groups A, C, Y and W-135) conjugate vaccine (MCV4P) Unknown Completed [facility] MMR Unknown Completed [facility] IPV Unknown Completed [facility] Poliovirus, Live, Oral, Trivalent Unknown Completed [facility] HPV9 Unknown Completed [facility] TDAP Unknown Completed [facility] DTaP, Unspecified Formulation Unknown Completed [facility] HEPATITIS A Unknown Completed [facility] Hep B, Adol or Pedi Dosage Unknown Completed [facility] HIB 4 Dose Schedule Unknown Completed [facility] Haemophilus influenzae type b vaccine, conjugate unspecified formulation Unknown Completed [facility] HPV Unknown Completed [facility] Meningococcal Polysaccharide (groups A, C, Y and W-135) conjugate vaccine (MCV4P) Unknown Completed [facility] MMR Unknown Completed [facility] IPV Unknown Completed [facility] Poliovirus, Live, Oral, Trivalent Unknown Completed [facility] HPV9 Unknown Completed [facility] TDAP Unknown Completed [facility] DTaP, Unspecified Formulation Unknown Completed [facility] HEPATITIS A Unknown Completed [facility] Hep B, Adol or Pedi Dosage Unknown Completed [facility] HIB 4 Dose Schedule Unknown Completed [facility] Haemophilus influenzae type b vaccine, conjugate unspecified formulation Unknown Completed [facility] HPV Unknown Completed [facility] Meningococcal Polysaccharide (groups A, C, Y and W-135) conjugate vaccine (MCV4P) Unknown Completed [facility] MMR Unknown Completed [facility] IPV Unknown Completed [facility] Poliovirus, Live, Oral, Trivalent Unknown Completed [facility] HPV9 Unknown Completed [facility] HEPATITIS A Unknown Completed [facility] Haemophilus influenzae type b vaccine, conjugate unspecified formulation Unknown Completed [facility] HPV Unknown Completed [facility] Meningococcal Polysaccharide (groups A, C, Y and W-135) conjugate vaccine (MCV4P) Unknown Completed [facility] HPV9 Unknown Completed [facility] TDAP Unknown Completed [facility] DTaP, Unspecified Formulation Unknown Completed [facility] Hep B, Adol or Pedi Dosage Unknown Completed [facility] HIB 4 Dose Schedule Unknown Completed [facility] MMR Unknown Completed [facility] IPV Unknown Completed [facility] Poliovirus, Live, Oral, Trivalent Unknown Completed [facility] TDAP Unknown Completed [facility] DTaP, Unspecified Formulation Unknown Completed [facility] HEPATITIS A Unknown Completed [facility] Hep B, Adol or Pedi Dosage Unknown Completed [facility] HIB 4 Dose Schedule Unknown Completed [facility] Haemophilus influenzae type b vaccine, conjugate unspecified formulation Unknown Completed [facility] HPV Unknown Completed [facility] Meningococcal Polysaccharide (groups A, C, Y and W-135) conjugate vaccine (MCV4P) Unknown Completed [facility] MMR Unknown Completed [facility] IPV Unknown Completed [facility] Poliovirus, Live, Oral, Trivalent Unknown Completed [facility] HPV9 Unknown Completed [facility] TDAP Unknown Completed [facility] DTaP, Unspecified Formulation Unknown Completed [facility] HEPATITIS A Unknown Completed [facility] Hep B, Adol or Pedi Dosage Unknown Completed [facility] HIB 4 Dose Schedule Unknown Completed [facility] Haemophilus influenzae type b vaccine, conjugate unspecified formulation Unknown Completed [facility] HPV Unknown Completed [facility] Meningococcal Polysaccharide (groups A, C, Y and W-135) conjugate vaccine (MCV4P) Unknown Completed [facility] MMR Unknown Completed [facility] IPV Unknown Completed [facility] Poliovirus, Live, Oral, Trivalent Unknown Completed [facility] HPV9 Unknown Completed [facility] TDAP Unknown Completed [facility] DTaP, Unspecified Formulation Unknown Completed [facility] HEPATITIS A Unknown Completed [facility] Hep B, Adol or Pedi Dosage Unknown Completed [facility] HIB 4 Dose Schedule Unknown Completed [facility] Haemophilus influenzae type b vaccine, conjugate unspecified formulation Unknown Completed [facility] HPV Unknown Completed [facility] Meningococcal Polysaccharide (groups A, C, Y and W-135) conjugate vaccine (MCV4P) Unknown Completed [facility] MMR Unknown Completed [facility] IPV Unknown Completed [facility] Poliovirus, Live, Oral, Trivalent Unknown Completed [facility] HPV9 Unknown Completed [facility] TDAP Unknown Completed [facility] DTaP, Unspecified Formulation Unknown Completed [facility] HEPATITIS A Unknown Completed [facility] Hep B, Adol or Pedi Dosage Unknown Completed [facility] HIB 4 Dose Schedule Unknown Completed [facility] Haemophilus influenzae type b vaccine, conjugate unspecified formulation Unknown Completed [facility] HPV Unknown Completed [facility] Meningococcal Polysaccharide (groups A, C, Y and W-135) conjugate vaccine (MCV4P) Unknown Completed [facility] MMR Unknown Completed [facility] IPV Unknown Completed [facility] Poliovirus, Live, Oral, Trivalent Unknown Completed [facility] HPV9 Unknown Completed [facility] HEPATITIS A Unknown Completed [facility] Haemophilus influenzae type b vaccine, conjugate unspecified formulation Unknown Completed [facility] HPV Unknown Completed [facility] Meningococcal Polysaccharide (groups A, C, Y and W-135) conjugate vaccine (MCV4P) Unknown Completed [facility] HPV9 Unknown Completed [facility] TDAP Unknown Completed [facility] DTaP, Unspecified Formulation Unknown Completed [facility] Hep B, Adol or Pedi Dosage Unknown Completed [facility] HIB 4 Dose Schedule Unknown Completed [facility] MMR Unknown Completed [facility] IPV Unknown Completed [facility] Poliovirus, Live, Oral, Trivalent Unknown Completed [facility] TDAP Unknown Completed [facility] DTaP, Unspecified Formulation Unknown Completed [facility] HEPATITIS A Unknown Completed [facility] Hep B, Adol or Pedi Dosage Unknown Completed [facility] HIB 4 Dose Schedule Unknown Completed [facility] Haemophilus influenzae type b vaccine, conjugate unspecified formulation Unknown Completed [facility] HPV Unknown Completed [facility] Meningococcal Polysaccharide (groups A, C, Y and W-135) conjugate vaccine (MCV4P) Unknown Completed [facility] MMR Unknown Completed [facility] IPV Unknown Completed [facility] Poliovirus, Live, Oral, Trivalent Unknown Completed [facility] HPV9 Unknown Completed [facility] TDAP Unknown Completed [facility] DTaP, Unspecified Formulation Unknown Completed [facility] HEPATITIS A Unknown Completed [facility] Hep B, Adol or Pedi Dosage Unknown Completed [facility] HIB 4 Dose Schedule Unknown Completed [facility] Haemophilus influenzae type b vaccine, conjugate unspecified formulation Unknown Completed [facility] HPV Unknown Completed [facility] Meningococcal Polysaccharide (groups A, C, Y and W-135) conjugate vaccine (MCV4P) Unknown Completed [facility] MMR Unknown Completed [facility] IPV Unknown Completed [facility] Poliovirus, Live, Oral, Trivalent Unknown Completed [facility] HPV9 Unknown Completed [facility] TDAP Unknown Completed [facility] DTaP, Unspecified Formulation Unknown Completed [facility] HEPATITIS A Unknown Completed [facility] Hep B, Adol or Pedi Dosage Unknown Completed [facility] HIB 4 Dose Schedule Unknown Completed [facility] Haemophilus influenzae type b vaccine, conjugate unspecified formulation Unknown Completed [facility] HPV Unknown Completed [facility] Meningococcal Polysaccharide (groups A, C, Y and W-135) conjugate vaccine (MCV4P) Unknown Completed [facility] MMR Unknown Completed [facility] IPV Unknown Completed [facility] Poliovirus, Live, Oral, Trivalent Unknown Completed [facility] HPV9 Unknown Completed [facility] TDAP Unknown Completed [facility] DTaP, Unspecified Formulation Unknown Completed [facility] HEPATITIS A [facility] Hep B, Adol or Pedi Dosage Unknown Completed [facility] HIB 4 Dose Schedule Unknown Completed [facility] Haemophilus influenzae type b vaccine, conjugate unspecified formulation Unknown Completed [facility] HPV Unknown Completed [facility] Meningococcal Polysaccharide (groups A, C, Y and W-135) conjugate vaccine (MCV4P) Unknown Completed [facility] MMR Unknown Completed [facility] IPV Unknown Completed [facility] Poliovirus, Live, Oral, Trivalent Unknown Completed [facility] HPV9 Unknown Completed [facility] HEPATITIS A Unknown Completed [facility] Haemophilus influenzae type b vaccine, conjugate unspecified formulation Unknown Completed [facility] HPV Unknown Completed [facility] Meningococcal Polysaccharide (groups A, C, Y and W-135) conjugate vaccine (MCV4P) Unknown Completed [facility] HPV9 Unknown Completed [facility] TDAP Unknown Completed [facility] DTaP, Unspecified Formulation Unknown Completed [facility] HEPATITIS A Unknown Completed [facility] Hep B, Adol or Pedi Dosage Unknown Completed [facility] HIB 4 Dose Schedule Unknown Completed [facility] Haemophilus influenzae type b vaccine, conjugate unspecified formulation Unknown Completed [facility] HPV Unknown Completed [facility] Meningococcal Polysaccharide (groups A, C, Y and W-135) conjugate vaccine (MCV4P) Unknown Completed [facility] MMR Unknown Completed [facility] IPV Unknown Completed [facility] Poliovirus, Live, Oral, Trivalent Unknown Completed [facility] HPV9 Unknown Completed [facility] TDAP Unknown Completed [facility] DTaP, Unspecified Formulation Unknown Completed [facility] HEPATITIS A Unknown [facility] Hep B, Adol or Pedi Dosage Unknown Completed [facility] HIB 4 Dose Schedule Unknown Completed [facility] Haemophilus influenzae type b vaccine, conjugate unspecified formulation Unknown Completed [facility] HPV Unknown Completed [facility] Meningococcal Polysaccharide (groups A, C, Y and W-135) conjugate vaccine (MCV4P) Unknown Completed [facility] MMR Unknown Completed [facility] IPV Unknown Completed [facility] Poliovirus, Live, Oral, Trivalent Unknown Completed [facility] HPV9 Unknown Completed [facility] TDAP Unknown Completed [facility] DTaP, Unspecified Formulation Unknown Completed [facility] HEPATITIS A Unknown Completed [facility] Hep B, Adol or Pedi Dosage Unknown Completed [facility] HIB 4 Dose Schedule Unknown Completed [facility] Haemophilus influenzae type b vaccine, conjugate unspecified formulation Unknown Completed [facility] HPV Unknown Completed [facility] Meningococcal Polysaccharide (groups A, C, Y and W-135) conjugate vaccine (MCV4P) Unknown Completed [facility] MMR Unknown Completed [facility] IPV Unknown Completed [facility] Poliovirus, Live, Oral, Trivalent Unknown Completed [facility] HPV9 Unknown Completed [facility] TDAP Unknown Completed [facility] DTaP, Unspecified Formulation Unknown Completed [facility] HEPATITIS A Unknown Completed [facility] Hep B, Adol or Pedi Dosage Unknown Completed [facility] HIB 4 Dose Schedule Unknown Completed [facility] Haemophilus influenzae type b vaccine, conjugate unspecified formulation Unknown Completed [facility] HPV Unknown Completed [facility] Meningococcal Polysaccharide (groups A, C, Y and W-135) conjugate vaccine (MCV4P) Unknown Completed [facility] MMR Unknown Completed [facility] IPV Unknown Completed [facility] Poliovirus, Live, Oral, Trivalent Unknown Completed [facility] HPV9 Unknown Completed [facility] TDAP Unknown Completed [facility] DTaP, Unspecified Formulation Unknown Completed [facility] Hep B, Adol or Pedi Dosage Unknown Completed [facility] HIB 4 Dose Schedule Unknown Completed [facility] MMR Unknown Completed [facility] IPV Unknown Completed [facility] Poliovirus, Live, Oral, Trivalent Unknown Completed [facility] TDAP Unknown Completed [facility] DTaP, Unspecified Formulation Unknown Completed [facility] HEPATITIS A Unknown Completed [facility] Hep B, Adol or Pedi Dosage Unknown Completed [facility] HIB 4 Dose Schedule Unknown Completed [facility] Haemophilus influenzae type b vaccine, conjugate unspecified formulation Unknown Completed [facility] HPV Unknown Completed [facility] Meningococcal Polysaccharide (groups A, C, Y and W-135) conjugate vaccine (MCV4P) Unknown Completed [facility] MMR Unknown Completed [facility] IPV Unknown Completed [facility] Poliovirus, Live, Oral, Trivalent Unknown Completed [facility] HPV9 Unknown Completed [facility] TDAP Unknown Completed [facility] DTaP, Unspecified Formulation Unknown Completed [facility] HEPATITIS A Unknown Completed [facility] Hep B, Adol or Pedi Dosage Unknown Completed [facility] HIB 4 Dose Schedule Unknown Completed [facility] Haemophilus influenzae type b vaccine, conjugate unspecified formulation Unknown Completed [facility] HPV Unknown Completed [facility] Meningococcal Polysaccharide (groups A, C, Y and W-135) conjugate vaccine (MCV4P) Unknown Completed [facility] MMR Unknown Completed [facility] IPV Unknown Completed [facility] Poliovirus, Live, Oral, Trivalent Unknown Completed [facility] HPV9 Unknown Completed [facility] TDAP Unknown Completed [facility] DTaP, Unspecified Formulation Unknown Completed [facility] HEPATITIS A Unknown Completed [facility] Hep B, Adol or Pedi Dosage Unknown Completed [facility] HIB 4 Dose Schedule Unknown Completed [facility] Haemophilus influenzae type b vaccine, conjugate unspecified formulation Unknown Completed [facility] HPV Unknown Completed [facility] Meningococcal Polysaccharide (groups A, C, Y and W-135) conjugate vaccine (MCV4P) Unknown Completed [facility] MMR Unknown Completed [facility] IPV Unknown Completed [facility] Poliovirus, Live, Oral, Trivalent Unknown Completed [facility] HPV9 Unknown Completed [facility] TDAP Unknown Completed [facility] DTaP, Unspecified Formulation Unknown Completed [facility] HEPATITIS A Unknown Completed [facility] Hep B, Adol or Pedi Dosage Unknown Completed [facility] HIB 4 Dose Schedule Unknown Completed [facility] Haemophilus influenzae type b vaccine, conjugate unspecified formulation Unknown Completed [facility] HPV Unknown Completed [facility] Meningococcal Polysaccharide (groups A, C, Y and W-135) conjugate vaccine (MCV4P) Unknown Completed [facility] MMR Unknown Completed [facility] IPV Unknown Completed [facility] Poliovirus, Live, Oral, Trivalent Unknown Completed [facility] HPV9 Unknown Completed [facility] TDAP Unknown Completed [facility] DTaP, Unspecified Formulation Unknown Completed [facility] HEPATITIS A Unknown Completed [facility] Hep B, Adol or Pedi Dosage Unknown Completed [facility] HIB 4 Dose Schedule Unknown Completed [facility] Haemophilus influenzae type b vaccine, conjugate unspecified formulation Unknown Completed [facility] HPV Unknown Completed [facility] Meningococcal Polysaccharide (groups A, C, Y and W-135) conjugate vaccine (MCV4P) Unknown Completed [facility] MMR Unknown Completed [facility] IPV Unknown Completed [facility] Poliovirus, Live, Oral, Trivalent Unknown Completed [facility] HPV9 Unknown Completed [facility] TDAP Unknown Completed [facility] DTaP, Unspecified Formulation Unknown Completed [facility] HEPATITIS A Unknown Completed [facility] Hep B, Adol or Pedi Dosage Unknown Completed [facility] HIB 4 Dose Schedule Unknown Completed [facility] Haemophilus influenzae type b vaccine, conjugate unspecified formulation Unknown Completed [facility] HPV Unknown Completed [facility] Meningococcal Polysaccharide (groups A, C, Y and W-135) conjugate vaccine (MCV4P) Unknown Completed [facility] MMR Unknown Completed [facility] IPV Unknown Completed [facility] Poliovirus, Live, Oral, Trivalent Unknown Completed [facility] HPV9 Unknown Completed [facility] TDAP Unknown Completed [facility] DTaP, Unspecified Formulation Unknown Completed [facility] HEPATITIS A Unknown Completed [facility] Hep B, Adol or Pedi Dosage Unknown Completed [facility] HIB 4 Dose Schedule Unknown Completed [facility] Haemophilus influenzae type b vaccine, conjugate unspecified formulation Unknown Completed [facility] HPV Unknown Completed [facility] Meningococcal Polysaccharide (groups A, C, Y and W-135) conjugate vaccine (MCV4P) Unknown Completed [facility] MMR Unknown Completed [facility] IPV Unknown Completed [facility] Poliovirus, Live, Oral, Trivalent Unknown Completed [facility] HPV9 Unknown Completed [facility] TDAP Unknown Completed [facility] DTaP, Unspecified Formulation Unknown Completed [facility] HEPATITIS A Unknown Completed [facility] Hep B, Adol or Pedi Dosage Unknown Completed [facility] HIB 4 Dose Schedule Unknown Completed [facility] Haemophilus influenzae type b vaccine, conjugate unspecified formulation Unknown Completed [facility] HPV Unknown Completed [facility] Meningococcal Polysaccharide (groups A, C, Y and W-135) conjugate vaccine (MCV4P) Unknown Completed [facility] MMR Unknown Completed [facility] IPV Unknown Completed [facility] Poliovirus, Live, Oral, Trivalent Unknown Completed [facility] HPV9 Unknown Completed [facility] HEPATITIS A Unknown Completed [facility] Haemophilus influenzae type b vaccine, conjugate unspecified formulation Unknown Completed [facility] HPV Unknown Completed [facility] Meningococcal Polysaccharide (groups A, C, Y and W-135) conjugate vaccine (MCV4P) Unknown Completed [facility] HPV9 Unknown Completed [facility] TDAP Unknown Completed [facility] DTaP, Unspecified Formulation Unknown Completed [facility] Hep B, Adol or Pedi Dosage Unknown Completed [facility] HIB 4 Dose Schedule Unknown Completed [facility] MMR Unknown Completed [facility] IPV Unknown Completed [facility] Poliovirus, Live, Oral, Trivalent Unknown Completed [facility] HEPATITIS A Unknown Completed [facility] Haemophilus influenzae type b vaccine, conjugate unspecified formulation Unknown Completed [facility] HPV Unknown Completed [facility] Meningococcal Polysaccharide (groups A, C, Y and W-135) conjugate vaccine (MCV4P) Unknown Completed [facility] HPV9 Unknown Completed [facility] TDAP Unknown Completed [facility] DTaP, Unspecified Formulation Unknown Completed [facility] Hep B, Adol or Pedi Dosage Unknown Completed [facility] HIB 4 Dose Schedule Unknown Completed [facility] MMR Unknown Completed [facility] IPV Unknown Completed [facility] Poliovirus, Live, Oral, Trivalent Unknown Completed [facility] HEPATITIS A Unknown Completed [facility] Haemophilus influenzae type b vaccine, conjugate unspecified formulation Unknown Completed [facility] HPV Unknown Completed [facility] Meningococcal Polysaccharide (groups A, C, Y and W-135) conjugate vaccine (MCV4P) Unknown Completed [facility] HPV9 Unknown Completed [facility] TDAP Unknown Completed [facility] DTaP, Unspecified Formulation Unknown Completed [facility] Hep B, Adol or Pedi Dosage Unknown Completed [facility] HIB 4 Dose Schedule Unknown Completed [facility] MMR Unknown Completed [facility] IPV Unknown Completed [facility] Poliovirus, Live, Oral, Trivalent Unknown Completed [facility] TDAP Unknown Completed [facility] DTaP, Unspecified Formulation Unknown Completed [facility] HEPATITIS A Unknown Completed [facility] Hep B, Adol or Pedi Dosage Unknown Completed [facility] HIB 4 Dose Schedule Unknown Completed [facility] Haemophilus influenzae type b vaccine, conjugate unspecified formulation Unknown Completed [facility] HPV Unknown Completed [facility] Meningococcal Polysaccharide (groups A, C, Y and W-135) conjugate vaccine (MCV4P) Unknown Completed [facility] MMR Unknown Completed [facility] IPV Unknown Completed [facility] Poliovirus, Live, Oral, Trivalent Unknown Completed [facility] HPV9 Unknown Completed [facility] TDAP Unknown Completed [facility] DTaP, Unspecified Formulation Unknown Completed [facility] HEPATITIS A Unknown Completed [facility] Hep B, Adol or Pedi Dosage Unknown Completed [facility] HIB 4 Dose Schedule Unknown Completed [facility] Haemophilus influenzae type b vaccine, conjugate unspecified formulation Unknown Completed [facility] HPV Unknown Completed [facility] Meningococcal Polysaccharide (groups A, C, Y and W-135) conjugate vaccine (MCV4P) Unknown Completed [facility] MMR Unknown Completed [facility] IPV Unknown Completed [facility] Poliovirus, Live, Oral, Trivalent Unknown Completed [facility] HPV9 Unknown Completed [facility] TDAP Unknown Completed [facility] DTaP, Unspecified Formulation Unknown Completed [facility] HEPATITIS A Unknown Completed [facility] Hep B, Adol or Pedi Dosage Unknown Completed [facility] HIB 4 Dose Schedule Unknown Completed [facility] Haemophilus influenzae type b vaccine, conjugate unspecified formulation Unknown Completed [facility] HPV Unknown Completed [facility] Meningococcal Polysaccharide (groups A, C, Y and W-135) conjugate vaccine (MCV4P) Unknown Completed [facility] MMR Unknown Completed [facility] IPV Unknown Completed [facility] Poliovirus, Live, Oral, Trivalent Unknown Completed [facility] HPV9 Unknown Completed [facility] TDAP Unknown Completed [facility] DTaP, Unspecified Formulation Unknown Completed [facility] HEPATITIS A Unknown Completed [facility] Hep B, Adol or Pedi Dosage Unknown Completed [facility] HIB 4 Dose Schedule Unknown Completed [facility] Haemophilus influenzae type b vaccine, conjugate unspecified formulation Unknown Completed [facility] HPV Unknown Completed [facility] Meningococcal Polysaccharide (groups A, C, Y and W-135) conjugate vaccine (MCV4P) Unknown Completed [facility] MMR Unknown Completed [facility] IPV Unknown Completed [facility] Poliovirus, Live, Oral, Trivalent Unknown Completed [facility] HPV9 Unknown Completed [facility] TDAP Unknown Completed [facility] DTaP, Unspecified Formulation Unknown Completed [facility] HEPATITIS A Unknown Completed [facility] Hep B, Adol or Pedi Dosage Unknown Completed [facility] HIB 4 Dose Schedule Unknown Completed [facility] Haemophilus influenzae type b vaccine, conjugate unspecified formulation Unknown Completed [facility] HPV Unknown Completed [facility] Meningococcal Polysaccharide (groups A, C, Y and W-135) conjugate vaccine (MCV4P) Unknown Completed [facility] MMR Unknown Completed [facility] IPV Unknown Completed [facility] Poliovirus, Live, Oral, Trivalent Unknown Completed [facility] HPV9 Unknown Completed [facility] Vital Signs Vital Name Observation Time Observation Value Comments S ource Systolic blood pressure 2024-02-27 16:52:00 118 mm[Hg] [facility] Diastolic blood pressure 2024-02-27 16:52:00 82 mm[Hg] [facility] Heart rate 2024-02-27 16:52:00 113 /min [facility] Body temperature 2024-02-27 16:52:00 36.28 [facility] Respiratory rate 2024-02-27 16:52:00 18 /min [facility] Body height 2024-02-27 16:52:00 166.4 cm [facility] Body weight 2024-02-27 16:52:00 117.164 kg [facility] BMI 2024-02-27 16:52:00 42.33 kg/m2 [facility] Oxygen saturation in Arterial blood by Pulse oximetry 2024-02-27 16:52:00 99 /min [facility] Systolic blood pressure 2024-02-22 08:00:00 172 mm[Hg] [facility] Diastolic blood pressure 2024-02-22 08:00:00 90 mm[Hg] [facility] Heart rate 2024-02-22 08:00:00 89 /min [facility] Body temperature 2024-02-22 08:00:00 36.89 [facility] Respiratory rate 2024-02-22 08:00:00 20 /min [facility] Oxygen saturation in Arterial blood by Pulse oximetry 2024-02-22 08:00:00 100 /min [facility] Body height 2024-02-22 05:52:00 165.1 cm [facility] Body weight 2024-02-22 05:52:00 108.863 kg [facility] BMI 2024-02-22 05:52:00 39.94 kg/m2 [facility] Systolic blood pressure 2024-01-29 19:50:00 125 mm[Hg] [facility] Diastolic blood pressure 2024-01-29 19:50:00 85 mm[Hg] [facility] Heart rate 2024-01-29 19:50:00 103 /min [facility] Respiratory rate 2024-01-29 19:50:00 15 /min [facility] Oxygen saturation in Arterial blood by Pulse oximetry 2024-01-29 19:50:00 96 /min [facility] Body temperature 2024-01-29 18:30:00 36.33 [facility] Body height 2024-01-21 21:15:00 165.1 cm [facility] Body weight 2024-01-21 21:15:00 122.471 kg [facility] BMI 2024-01-21 21:15:00 44.93 kg/m2 [facility] Systolic blood pressure 2024-01-29 18:35:00 127 mm[Hg] [facility] Diastolic blood pressure 2024-01-29 18:35:00 82 mm[Hg] [facility] Heart rate 2024-01-29 18:35:00 114 /min [facility] Respiratory rate 2024-01-29 18:35:00 18 /min [facility] Oxygen saturation in Arterial blood by Pulse oximetry 2024-01-29 18:35:00 100 /min [facility] Body temperature 2024-01-29 18:30:00 36.33 [facility] Body height 2024-01-21 21:15:00 165.1 cm [facility] Body weight 2024-01-21 21:15:00 122.471 kg [facility] BMI 2024-01-21 21:15:00 44.93 kg/m2 [facility] Systolic blood pressure 2024-01-12 11:25:00 156 mm[Hg] [facility] Diastolic blood pressure 2024-01-12 11:25:00 110 mm[Hg] [facility] Respiratory rate 2024-01-12 11:25:00 12 /min [facility] Oxygen saturation in Arterial blood by Pulse oximetry 2024-01-12 11:25:00 97 /min [facility] Heart rate 2024-01-12 11:15:00 88 /min [facility] Body temperature 2024-01-12 09:59:00 36.5 [facility] Body height 2024-01-12 09:59:00 165.1 cm [facility] Body weight 2024-01-12 09:59:00 122.471 kg [facility] BMI 2024-01-12 09:59:00 44.93 kg/m2 [facility] Systolic blood pressure 2024-01-07 17:05:00 136 mm[Hg] [facility] Diastolic blood pressure 2024-01-07 17:05:00 99 mm[Hg] [facility] Heart rate 2024-01-07 17:05:00 109 /min [facility] Oxygen saturation in Arterial blood by Pulse oximetry 2024-01-07 17:05:00 100 /min [facility] Body temperature 2024-01-07 17:02:00 36.39 [facility] Respiratory rate 2024-01-07 17:02:00 18 /min [facility] Body height 2024-01-07 17:02:00 165.1 cm [facility] Body weight 2024-01-07 17:02:00 122.471 kg [facility] BMI 2024-01-07 17:02:00 44.93 kg/m2 [facility] Systolic blood pressure 2024-01-03 17:27:00 111 mm[Hg] [facility] Diastolic blood pressure 2024-01-03 17:27:00 77 mm[Hg] [facility] Heart rate 2024-01-03 17:27:00 99 /min [facility] Body temperature 2024-01-03 17:27:00 36.5 [facility] Respiratory rate 2024-01-03 17:27:00 18 /min [facility] Body height 2024-01-03 17:27:00 165.1 cm [facility] Body weight 2024-01-03 17:27:00 120.203 kg [facility] BMI 2024-01-03 17:27:00 44.10 kg/m2 [facility] Oxygen saturation in Arterial blood by Pulse oximetry 2024-01-03 17:27:00 99 /min [facility] Systolic blood pressure 2023-12-24 17:35:00 118 mm[Hg] [facility] Diastolic blood pressure 2023-12-24 17:35:00 80 mm[Hg] [facility] Heart rate 2023-12-24 17:35:00 90 /min [facility] Respiratory rate 2023-12-24 17:35:00 15 /min [facility] Oxygen saturation in Arterial blood by Pulse oximetry 2023-12-24 17:35:00 96 /min [facility] Body temperature 2023-12-24 17:05:00 36 [facility] Body height 2023-12-24 16:37:00 165.1 cm [facility] Body weight 2023-12-24 16:37:00 122.154 kg [facility] BMI 2023-12-24 16:37:00 44.81 kg/m2 [facility] Systolic blood pressure 2023-12-24 17:05:00 100 mm[Hg] [facility] Diastolic blood pressure 2023-12-24 17:05:00 56 mm[Hg] [facility] Heart rate 2023-12-24 17:05:00 89 /min [facility] Body temperature 2023-12-24 17:05:00 36 [facility] Respiratory rate 2023-12-24 17:05:00 16 /min [facility] Oxygen saturation in Arterial blood by Pulse oximetry 2023-12-24 17:05:00 94 /min [facility] Body height 2023-12-24 16:37:00 165.1 cm [facility] Body weight 2023-12-24 16:37:00 122.154 kg [facility] BMI 2023-12-24 16:37:00 44.81 kg/m2 [facility] Systolic blood pressure 2023-11-27 19:10:00 111 mm[Hg] [facility] Diastolic blood pressure 2023-11-27 19:10:00 76 mm[Hg] [facility] Heart rate 2023-11-27 19:10:00 111 /min [facility] Respiratory rate 2023-11-27 19:10:00 18 /min [facility] Body height 2023-11-27 19:10:00 165.1 cm [facility] Body weight 2023-11-27 19:10:00 124.286 kg [facility] BMI 2023-11-27 19:10:00 45.60 kg/m2 [facility] Systolic blood pressure 2023-11-26 20:40:00 112 mm[Hg] [facility] Diastolic blood pressure 2023-11-26 20:40:00 74 mm[Hg] [facility] Heart rate 2023-11-26 20:40:00 103 /min [facility] Body temperature 2023-11-26 20:40:00 36.39 [facility] Body height 2023-11-26 20:40:00 165.1 cm [facility] Body weight 2023-11-26 20:40:00 123.923 kg [facility] BMI 2023-11-26 20:40:00 45.46 kg/m2 [facility] Systolic blood pressure 2023-11-22 18:07:00 134 mm[Hg] [facility] Diastolic blood pressure 2023-11-22 18:07:00 89 mm[Hg] [facility] Heart rate 2023-11-22 18:07:00 126 /min [facility] Body temperature 2023-11-22 18:07:00 36.28 [facility] Respiratory rate 2023-11-22 18:07:00 18 /min [facility] Body height 2023-11-22 18:07:00 165.1 cm [facility] Body weight 2023-11-22 18:07:00 125.102 kg [facility] BMI 2023-11-22 18:07:00 45.90 kg/m2 [facility] Oxygen saturation in Arterial blood by Pulse oximetry 2023-11-22 18:07:00 98 /min [facility] Systolic blood pressure 2023-11-19 14:38:00 127 mm[Hg] [facility] Diastolic blood pressure 2023-11-19 14:38:00 86 mm[Hg] [facility] Heart rate 2023-11-19 14:38:00 107 /min [facility] Body temperature 2023-11-19 14:38:00 36.33 [facility] Respiratory rate 2023-11-19 14:38:00 18 /min [facility] Body height 2023-11-19 14:38:00 165.1 cm [facility] Body weight 2023-11-19 14:38:00 123.741 kg [facility] BMI 2023-11-19 14:38:00 45.40 kg/m2 [facility] Oxygen saturation in Arterial blood by Pulse oximetry 2023-11-19 14:38:00 98 /min [facility] Systolic blood pressure 2023-11-18 16:30:00 156 mm[Hg] [facility] Diastolic blood pressure 2023-11-18 16:30:00 113 mm[Hg] [facility] Heart rate 2023-11-18 16:30:00 88 /min [facility] Respiratory rate 2023-11-18 16:30:00 18 /min [facility] Oxygen saturation in Arterial blood by Pulse oximetry 2023-11-18 16:30:00 98 /min [facility] Body temperature 2023-11-18 10:28:00 36.72 [facility] Body height 2023-11-18 10:27:00 165.1 cm [facility] Body weight 2023-11-18 10:27:00 122.471 kg [facility] BMI 2023-11-18 10:27:00 44.93 kg/m2 [facility] Systolic blood pressure 2023-11-08 20:00:00 123 mm[Hg] [facility] Diastolic blood pressure 2023-11-08 20:00:00 91 mm[Hg] [facility] Respiratory rate 2023-11-08 20:00:00 17 /min [facility] Heart rate 2023-11-08 19:00:00 75 /min [facility] Oxygen saturation in Arterial blood by Pulse oximetry 2023-11-08 19:00:00 100 /min [facility] Body temperature 2023-11-08 17:00:00 36.83 [facility] Body height 2023-11-08 15:16:00 165.1 cm [facility] Body weight 2023-11-08 15:16:00 122.471 kg [facility] BMI 2023-11-08 15:16:00 44.93 kg/m2 [facility] Systolic blood pressure 2023-08-06 19:07:00 135 mm[Hg] [facility] Diastolic blood pressure 2023-08-06 19:07:00 93 mm[Hg] [facility] Heart rate 2023-08-06 19:04:00 81 /min [facility] Body temperature 2023-08-06 19:04:00 36.11 [facility] Respiratory rate 2023-08-06 19:04:00 18 /min [facility] Body height 2023-08-06 19:04:00 165.1 cm [facility] Body weight 2023-08-06 19:04:00 140.66 kg [facility] BMI 2023-08-06 19:04:00 51.60 kg/m2 [facility] Oxygen saturation in Arterial blood by Pulse oximetry 2023-08-06 19:04:00 100 /min [facility] Systolic blood pressure 2023-06-21 16:24:00 156 mm[Hg] [facility] Diastolic blood pressure 2023-06-21 16:24:00 98 mm[Hg] [facility] Heart rate 2023-06-21 16:24:00 94 /min [facility] Body temperature 2023-06-21 16:24:00 37.22 [facility] Respiratory rate 2023-06-21 16:24:00 16 /min [facility] Body height 2023-06-21 16:24:00 165.1 cm [facility] Body weight 2023-06-21 16:24:00 127.007 kg [facility] BMI 2023-06-21 16:24:00 46.59 [facility] in Arterial blood by Pulse oximetry 2023-06-21 16:24:00 100 /min [facility] Systolic blood pressure 2023-01-24 20:58:00 132 mm[Hg] [facility] Diastolic blood pressure 2023-01-24 20:58:00 96 mm[Hg] [facility] Heart rate 2023-01-24 20:56:00 95 /min [facility] Body temperature 2023-01-24 20:56:00 36.67 [facility] Respiratory rate 2023-01-24 20:56:00 18 /min [facility] Body height 2023-01-24 20:56:00 165.1 cm [facility] Body weight 2023-01-24 20:56:00 138.937 kg [facility] BMI 2023-01-24 20:56:00 50.97 kg/m2 [facility] Oxygen saturation in Arterial blood by Pulse oximetry 2023-01-24 20:56:00 100 /min [facility] Systolic blood pressure 2022-12-25 19:43:00 131 mm[Hg] [facility] Diastolic blood pressure 2022-12-25 19:43:00 86 mm[Hg] [facility] Heart rate 2022-12-25 19:43:00 72 /min [facility] Body temperature 2022-12-25 19:43:00 36.28 [facility] Respiratory rate 2022-12-25 19:43:00 16 /min [facility] Body height 2022-12-25 19:43:00 165.1 cm [facility] 2022-12-25 19:43:00 138.347 [facility] BMI 2022-12-25 19:43:00 50.75 kg/m2 [facility] Oxygen saturation in Arterial blood by Pulse oximetry 2022-12-25 19:43:00 99 /min [facility] Systolic blood pressure 2022-01-20 20:03:00 135 mm[Hg] [facility] Diastolic blood pressure 2022-01-20 20:03:00 87 mm[Hg] [facility] Heart rate 2022-01-20 20:03:00 87 /min [facility] Body temperature 2022-01-20 20:03:00 36.56 [facility] Respiratory rate 2022-01-20 20:03:00 17 /min [facility] Body height 2022-01-20 20:03:00 165.1 cm [facility] Body weight 2022-01-20 20:03:00 118.706 kg [facility] BMI 2022-01-20 20:03:00 43.55 kg/m2 [facility] Systolic blood pressure 2021-12-22 13:14:00 125 mm[Hg] [facility] Diastolic blood pressure 2021-12-22 13:14:00 86 mm[Hg] [facility] Heart rate 2021-12-22 13:14:00 96 /min [facility] Body temperature 2021-12-22 13:14:00 36.61 [facility] Respiratory rate 2021-12-22 13:14:00 20 /min [facility] Body height 2021-12-22 13:14:00 165.1 cm [facility] Body weight 2021-12-22 13:14:00 108.41 kg [facility] BMI 2021-12-22 13:14:00 39.77 kg/m2 [facility] Systolic blood pressure 2021-11-29 12:00:00 142 mm[Hg] [facility] Diastolic blood pressure 2021-11-29 12:00:00 87 mm[Hg] [facility] Heart rate 2021-11-29 12:00:00 79 /min [facility] Body temperature 2021-11-29 12:00:00 36.72 [facility] Respiratory rate 2021-11-29 12:00:00 18 /min [facility] Oxygen saturation in Arterial blood by Pulse oximetry 2021-11-29 12:00:00 100 /min [facility] Body height 2021-11-26 08:32:00 165.1 cm [facility] Body weight 2021-11-26 08:32:00 114.034 kg [facility] BMI 2021-11-26 08:32:00 41.84 kg/m2 [facility] Systolic blood pressure 2021-11-23 14:45:00 133 mm[Hg] [facility] Diastolic blood pressure 2021-11-23 14:45:00 102 mm[Hg] [facility] Heart rate 2021-11-23 14:42:00 77 /min [facility] Body temperature 2021-11-23 14:42:00 36.33 [facility] Respiratory rate 2021-11-23 14:42:00 18 /min [facility] Body height 2021-11-23 14:42:00 165.1 cm [facility] Body weight 2021-11-23 14:42:00 114.17 kg [facility] BMI 2021-11-23 14:42:00 41.89 kg/m2 [facility] Systolic blood pressure 2021-11-11 15:03:00 120 mm[Hg] [facility] Diastolic blood pressure 2021-11-11 15:03:00 82 mm[Hg] [facility] Heart rate 2021-11-11 14:58:00 105 /min [facility] Body temperature 2021-11-11 14:57:00 36.33 [facility] Respiratory rate 2021-11-11 14:57:00 18 /min [facility] Body height 2021-11-11 14:57:00 165.1 cm [facility] Body weight 2021-11-11 14:57:00 113.541 kg [facility] BMI 2021-11-11 14:57:00 41.65 kg/m2 [facility] Systolic blood pressure 2021-10-27 23:55:00 129 mm[Hg] [facility] Diastolic blood pressure 2021-10-27 23:55:00 76 mm[Hg] [facility] Heart rate 2021-10-27 23:55:00 88 /min [facility] Oxygen saturation in Arterial blood by Pulse oximetry 2021-10-27 23:55:00 96 /min [facility] Body temperature 2021-10-27 23:14:00 37 [facility] Respiratory rate 2021-10-27 23:14:00 18 /min [facility] Body height 2021-10-27 22:26:00 165.1 cm [facility] Body weight 2021-10-27 22:26:00 111.131 kg [facility] BMI 2021-10-27 22:26:00 40.77 kg/m2 [facility] Systolic blood pressure 2021-10-27 18:08:00 140 mm[Hg] [facility] Diastolic blood pressure 2021-10-27 18:08:00 94 mm[Hg] [facility] Heart rate 2021-10-27 18:07:00 88 /min [facility] Body temperature 2021-10-27 18:07:00 35.61 [facility] Respiratory rate 2021-10-27 18:07:00 18 /min [facility] Body weight 2021-10-27 18:07:00 110.224 kg [facility] BMI 2021-10-27 18:07:00 40.44 kg/m2 [facility] Procedures Procedure Date / Time Performed Performing Clinician Source CT ABDOMEN PELVIS W CONTRAST 2024-02-22 07:32:12 Shorty Zambrano [facility] POCT TEST 2024-02-22 06:51:00 Shorty Zambrano [facility] URINALYSIS 2024-02-22 06:48:00 Shorty Zambrano [facility] LIPASE 2024-02-22 06:08:00 Shorty Zambrano [facility] COMP. METABOLIC PANEL (31940) 2024-02-22 06:08:00 Shorty Zambrano [facility] CBC WITH DIFF 2024-02-22 06:08:00 Shorty Zambrano [facility] POCT TEST 2024-01-29 16:18:00 Gianni Lopez [facility] POCT TEST 2024-01-29 16:18:00 Gianni Lopez [facility] [id number] - NE LAPAROSCOPY SURG CHOLECYSTECTOMY 2024-01-29 16:15:00 Eva Bryan [facility] POCT TEST 2024-01-12 10:32:00 Caro Bauer [facility] LIPASE 2024-01-12 10:06:00 Caro Bauer [facility] COMP. METABOLIC PANEL ([id number]) 2024-01-12 10:06:00 Caro Bauer [facility] CBC WITH DIFF 2024-01-12 10:06:00 Caro Bauer [facility] EGD (ENDO) 2023-12-24 17:08:17 Jeimy [facility] EGD (ENDO) 2023-12-24 17:08:17 Jeimy [facility] SURGICAL PATHOLOGY EXAM 2023-12-24 16:57:00 Yisel Hart [facility] ESOPHAGOGASTRODUODENOSCOPY 2023-12-24 16:36:00 Yisel Hart [facility] US OVARY TORSION 2023-11-18 16:33:50 Kelly Simms [facility] URINALYSIS 2023-11-18 15:15:00 Caro Bauer [facility] CT ABDOMEN PELVIS W CONTRAST 2023-11-18 13:38:59 Caro Bauer [facility] LIPASE 2023-11-18 11:10:00 Caro Bauer [facility] TEST, SERUM 2023-11-18 11:10:00 Caro Bauer [facility] COMP. METABOLIC PANEL ([id number]) 2023-11-18 11:10:00 Caro Bauer [facility] CBC WITH DIFF 2023-11-18 11:10:00 Caro Bauer [facility] COMP. METABOLIC PANEL ([id number]) 2023-11-08 16:43:00 Maame [facility] LIPASE 2023-11-08 16:01:00 Maame [facility] CBC WITH DIFF 2023-11-08 16:01:00 Maame [facility] URINALYSIS 2023-11-08 16:01:00 Maame [facility] POCT TEST 2023-11-08 16:01:00 Maame [facility] ZINC, SERUM 2023-08-06 19:42:00 Obi-Franklin [facility] VITAMIN B6, PLASMA 2023-08-06 19:42:00 Obi-Frank[place], [facility] FREE T4 2023-08-06 19:42:00 [facility] THYROID STIMULATING HORMONE 2023-08-06 19:42:00 [facility] COMP. METABOLIC PANEL ([id number]) 2023-08-06 19:42:00 Obsuzanne-Franklin [facility] CBC WITH DIFF 2023-08-06 19:42:00 Obi-Franklin, [facility] GLYCOSYLATED HEMOGLOBIN (A1C) 2023-08-06 19:42:00 Obi-Franklin, [facility] VITAMIN D, 25-OH 2023-08-06 19:42:00 Obi-Franklin, [facility] FREE T3 2023-08-06 19:42:00 Obi-Franklin, [facility] POCT TEST 2023-06-21 16:30:00 Bonita Trivedi [facility] URINALYSIS 2023-06-21 16:29:00 Bonita Trivedi [facility] INSURANCE CORRESPONDENCE 2023-01-15 06:01:00 Doctor Unassigned, [place] [facility] INSURANCE CORRESPONDENCE 2023-01-06 06:01:00 Doctor Unassigned, [place] [facility] GARDASIL 9 (HPV 9V) VACCINE 2022-12-25 20:04:37 Arun-Jess Reid [facility] POCT TEST 2022-01-20 20:18:00 Jacinta Voss [facility] DME/SUPPLY JUSTIFICATION 2022-01-03 06:01:00 Doctor Unassigned, [place] [facility] CBC WITH DIFF 2021-11-28 08:48:00 Adum, Vanessa Cowan [facility] CENTRAL NEURAXIAL BLOCK 2021-11-26 20:52:15 Wilver Owens [facility] HB ABO GROUPING 2021-11-26 09:30:00 Adum, Vanessa Cowan [facility] LACTATE DEHYDROGENASE 2021-11-26 09:29:00 Adum, Vanessa Cowan [facility] URIC ACID 2021-11-26 09:29:00 Adum, Vanessa Cowan [facility] COMP. METABOLIC PANEL ([id number]) 2021-11-26 09:29:00 Adum, Vanessa Cowan [facility] URINE DRUG (IMMUNOASSAY) - COMPREHENSIVE DRUG SCREEN 2021-11-26 09:29:00 Adum, Vanessa Cowan [facility] CBC WITH DIFF 2021-11-26 09:29:00 Adum, Vanessa Cowan [facility] URINALYSIS 2021-11-26 09:29:00 Adum, Vanessa Cowan [facility] HEPATITIS B SURFACE ANTIGEN 2021-11-26 09:29:00 Adum, Vanessa Cowan [facility] ADC OR [place] ONLY - RPR 2021-11-26 09:29:00 Adum, Vanessa Cowan [facility] HIV 1/2 AG-AB WITH REFLEX 2021-11-26 09:29:00 Adum, Vanessa Cowan [facility] CONSENT/REFUSAL FOR DIAGNOSI S AND TREATMENT 2021-11-26 08:08:59 Doctor Unassigned, [place] [facility] POCT URINALYSIS 2021-11-23 14:56:00 Rodrick Pete [facility] POCT URINALYSIS 2021-11-11 14:58:00 Rodrick Pete [facility] CONSENT/REFUSAL FOR DIAGNOSI S AND TREATMENT 2021-10-27 22:13:12 Doctor Unassigned, [place] [facility] POCT URINALYSIS 2021-10-27 18:21:00 Rodrick Pete [facility] Encounters Start Date/Time End Date/Time Encounter Type Admission Type Attending [facility] Care Department Encounter ID Source 2024-05-28 10:40:00 2024-05-28 10:40:00 Outpatient R [id number] 2024-02-27 00:00:00 2024-02-27 15:55:52 [facility] [id number] 350.1.13.10 [id number] [id number] [facility] 2024-02-27 10:40:00 2024-02-27 11:10:59 Outpatient R OBI-FRANKLIN [facility] [id number] [facility] 2024-02-27 10:40:00 2024-02-27 11:10:59 [facility] [id number] 350.1.13.10 [id number] [id number] [facility] 2024-02-22 00:00:00 2024-02-22 13:47:[address] [facility] [id number] 350.1.13.10 [id number] [id number] [facility] 2024-02-21 23:55:00 2024-02-22 02:59:00 Emergency X JUAN MANUEL, LIONELJOSEEGloria JUAN MANUEL, SHORTY [facility] ERT [id number] [facility] 2024-02-21 23:55:00 2024-02-22 02:59:00 Emergency Shorty Zambrano [facility] [id number] 350.1.13.10 4.2.7.2.686 [id number] [facility] 2024-02-21 00:00:00 2024-02-21 08:19:[address] [facility] [id number] 350.1.13.10 4.2.7.2.686 [id number] [facility] 2024-02-11 00:00:00 2024-02-13 09:13:13 Telephone Eva Bryan [facility] [id number] 350.1.13.10 4.2.7.2.686 [id number] [facility] 2024-02-11 00:00:00 2024-02-11 13:15:26 Patient Secure Msg Eva Bryan [facility] [id number] 350.1.13.10 4.2.7.2.686 [id number] [facility] 2024-02-11 00:00:00 2024-02-11 12:46:[address] [facility] [id number] 350.1.13.10 4.2.7.2.686 [id number] [facility] 2024-02-08 00:00:00 2024-02-08 14:40:57 Telephone Eva Bryan [facility] [id number] 350.1.13.10 4.2.7.2.686 [id number] [facility] 2024-02-07 00:00:00 2024-02-08 14:24:51 Patient Secure Msg IrvinEva [facility] [id number] 350.1.13.10 4.2.7.2.686 [id number] [facility] 2024-01-30 00:00:00 2024-01-31 08:09:51 Telephone IrvinKentrellel [facility] [id number] 350.1.13.10 4.2.7.2.686 [id number] [facility] 2024-01-29 08:46:00 2024-01-29 14:10:00 Outpatient R EVA BRYAN [facility] [id number] [facility] 2024-01-29 08:46:00 2024-01-29 14:10:00 Hospital Encounter Eva Bryan [facility] 1.2.840.114 350.1.13.10 4.2.7.2.686 [id number] 071 [id number] [facility] 2024-01-29 10:00:00 2024-01-29 12:35:00 Surgery Eva Bryan [facility] 1.2.840.114 350.1.13.10 4.2.7.2.686 [id number] [facility] 2024-01-25 00:00:00 2024-01-28 13:50:46 Refill Obi-Franklin , [facility] NAL BUILDING 1.2.840.114 350.1.13.10 4.2.7.2.686 [id number] 044 [id number] [facility] 2024-01-12 03:54:00 2024-01-12 05:48:00 Emergency X CARO BAUER WAKILI [facility] [id number] [facility] 2024-01-12 03:54:00 2024-01-12 05:48:00 Emergency Caro Bauer [facility] 1.2.840.114 350.1.13.10 4.2.7.2.686 [id number] 084 [id number] [facility] 2024-01-11 00:00:00 2024-01-11 12:50:05 Patient Secure Msg Jeimy [facility] BUILDING 1.2.840.114 350.1.13.10 4.2.7.2.686 [id number] 044 [id number] [facility] 2024-01-10 00:00:00 2024-01-11 05:46:35 Patient Secure g Jeimy [facility] BUILDING 1.2.840.114 350.1.13.10 4.2.7.2.686 [id number] 044 [id number] [facility] 2024-01-07 11:15:00 2024-01-07 12:06:32 Outpatient R EVA BRYAN [facility] [id number] [facility] 2024-01-07 11:15:00 2024-01-07 12:06:32 Office Visit Irvin Eva [facility] BUILDING 1.2.840.114 350.1.13.10 4.2.7.2.686 [id number] [facility] 2023-11-30 00:00:00 2024-01-05 18:24:03 Patient Secure Msg Jeimy [facility] BUILDING 1.2.840.114 350.1.13.10 4.2.7.2.686 [id number] 044 [id number] [facility] 2024-01-03 11:00:00 2024-01-03 11:41:02 Outpatient R JESS MUNSON [facility] [id number] [facility] 2024-01-03 11:00:00 2024-01-03 11:41:02 Office Visit Jeimy [facility] BUILDING 1.2.840.114 350.1.13.10 4.2.7.2.686 [id number] 044 [id number] [facility] 2024-01-02 00:00:00 2024-01-02 08:01:22 Telephone Jeimy [facility] BUILDING 1.2.840.114 350.1.13.10 4.2.7.2.686 [id number] 044 [id number] [facility] 2023-12-25 00:00:00 2023-12-27 05:31:52 Refill Jeimy [facility] BUILDING 1.2.840.114 350.1.13.10 4.2.7.2.686 [id number] 044 [id number] [facility] 2023-12-25 00:00:00 2023-12-25 12:23:25 Refill Yann Nayak [facility] 1.2.840.114 350.1.13.10 4.2.7.2.686 [id number] 071 [id number] [facility] 2023-12-24 00:00:00 2023-12-24 16:00:22 Patient Secure Msg Yisel Hart [facility] ([facility] 1..114 350.1.13.10 4.2.7.2.686 [id number] 071 [id number] [facility] 2023-12-24 09:50:00 2023-12-24 11:47:00 Outpatient R YISEL HART [facility] [id number] [facility] 2023-12-24 09:50:00 2023-12-24 11:47:00 Hospital Encounter Yisel Hart [facility] 1..114 350.1.13.10 4.2.7.2.686 [id number] 020 [id number] [facility] 2023-12-24 10:45:00 2023-12-24 11:15:00 Surgery Yisel Hart [facility] 1..114 350.1.13.10 4.2.7.2.686 [id number] 020 [id number] [facility] 2023-12-18 14:30:00 2023-12-18 14:30:00 Outpatient R KONRAD ORDOÑEZ OGECHUKWU [facility] [id number] [facility] 2023-12-18 13:00:00 2023-12-18 13:00:00 Outpatient R OBI-FRANKLIN JESS OBI-FRANKLIN , JESS [facility] [id number] [facility] 2023-12-17 00:00:00 2023-12-18 11:14:39 Telephone Obi-Franklin [facility] 1..114 350.1.13.10 4.2.7.2.686 [id number] 044 [id number] [facility] 2023-12-12 08:40:00 2023-12-12 08:40:00 Outpatient R OBI-FRANKLIN , JESS OBI-FRANKLIN , JESS [facility] [id number] [facility] 2023-12-07 00:00:00 2023-12-10 08:32:14 Refill Konrad Ordoñez [facility] PROFESSIO NAL BUILDING 1.2840.114 350.1.13.10 4.2.7.2.686 [id number] 044 [id number] [facility] 2023-11-30 00:00:00 2023-12-04 09:32:31 Patient Secure Tianna Meeks [facility] ([facility] 1.2840.114 350.1.13.10 4.2.7.2.686 [id number] 071 [id number] [facility] 2023-11-30 15:45:00 2023-11-30 15:45:00 Outpatient R ISAAC SHAY [facility] [id number] [facility] 2023-11-27 14:00:00 2023-11-27 14:37:01 Outpatient R VANESSA LEYVA VIVIAN [facility] [id number] [facility] 2023-11-27 14:00:00 2023-11-27 14:37:01 Office Visit Vanessa Leyva [facility] 1.2.114 350.1.13.10 4.2.7.2.686 [id number] [facility] 2023-11-26 15:00:00 2023-11-26 15:30:00 [facility] 1.2.840.114 350.1.13.10 4.2.7.2.686 [id number] [facility] 2023-11-26 15:00:00 2023-11-26 15:00:00 Outpatient R JOSE DE JESUS MEDINA VIEN [facility] [id number] [facility] 2023-11-22 13:00:00 2023-11-22 13:30:00 Office Visit Tianna Mei [facility] ([facility]) 1.2.840.114 350.1.13.10 4.2.7.2.686 [id number] 071 [id number] [facility] 2023-11-22 13:00:00 2023-11-22 13:00:00 Outpatient R TIANNA MEI ASHLEY [facility] [id number] [facility] 2023-11-20 10:00:00 2023-11-20 10:00:00 Outpatient R [facility] [id number] [facility] 2023-11-19 10:30:00 2023-11-19 10:30:00 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 2, Adc Lab Obsuzanne-Jess Reid 2, Adc Lab [facility] 1..840.114 350.1.13.10 4.2.7.2.686 [id number] [facility] 2023-11-19 09:40:00 2023-11-19 10:03:53 Outpatient R OBI-JESS REID OBI-Valerie REIDZOMA [facility] [id number] [facility] 2023-11-19 09:40:00 2023-11-19 10:03:53 Office Visit Obi-Jess Reid [facility] PROFESSIO NAL BUILDING 1.2.840.114 350.1.13.10 4.2.7.2.686 [id number] 044 [id number] [facility] 2023-11-15 00:00:00 2023-11-18 18:57:29 Refill Obsuzanne-Jess Reid [facility] PROFESSIO NAL BUILDING 1.2840.114 350.1.13.10 4.2.7.2.686 [id number] 044 [id number] [facility] 2023-11-16 00:00:00 2023-11-18 18:53:00 Refill Obi-Franklin [facility] PROFESSIO NAL BUILDING 1.2840.114 350.1.13.10 4.2.7.2.686 [id number] 044 [id number] [facility] 2023-11-18 05:34:00 2023-11-18 13:08:00 Emergency KELLY CUEVAS [facility] ERT [id number] [facility] 2023-11-18 05:34:00 2023-11-18 13:08:00 Emergency Caro Bauer Robert Lee [facility] 1.2840.114 350.1.13.10 4.2.7.2.686 [id number] 084 [id number] [facility] 2023-11-08 10:16:00 2023-11-08 16:16:00 Emergency TIFF VILLAFUERTE ERICA [facility] ERT [id number] [facility] 2023-11-08 10:16:00 2023-11-08 16:16:00 Emergency Tiff Isabel [facility] 1.2840.114 350.1.13.10 4.2.7.2.686 [id number] 084 [id number] [facility] 2023-10-16 00:00:00 2023-10-19 05:44:04 Refill Obi-Franklin , [facility] BUILDING 1.2840.114 350.1.13.10 4.2.7.2.686 [id number] 044 [id number] [facility] 2023-10-15 00:00:00 2023-10-16 10:48:03 Refill Obi-Franklin , [facility] PROFESSIO NAL BUILDING 1.2.840.114 350.1.13.10 4.2.7.2.686 [id number] 044 [id number] [facility] 2023 09:40:00 2023 09:40:00 Outpatient R OBI-FRANKLIN , JESS OBI-FRANKLIN , JESS [facility] [id number] [facility] 2023-10-01 00:00:00 2023-10-03 15:28:49 Refill Obi-Franklin , [facility] BUILDING 1.2.840.114 350.1.13.10 4.2.7.2.686 [id number] 044 [id number] [facility] 2023-09-12 00:00:00 2023-09-13 13:09:32 Refill Obi-Franklin [facility] BUILDING 1.2.840.114 350.1.13.10 4.2.7.2.686 [id number] 044 [id number] [facility] 2023-09-05 10:40:00 2023-09-05 10:40:00 Outpatient R OBI-FRANKLIN , JESS [facility] [id number] 2023-08-13 14:40:00 2023-08-13 14:40:00 Outpatient R OBI-FRANKLIN , JESS [facility]LIN [facility] [id number] [facility] 2023-08-06 14:30:00 2023-08-06 15:25:53 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 2, Adc Lab Obi-Franklin , [facility] NAL BUILDING 1.2.840.114 350.1.13.10 4.2.7.2.686 [id number] [facility] 2023-08-06 14:30:00 2023-08-06 14:30:00 Outpatient R OBI-FRANKLIN , JESS OBI-FRANKLIN , JESS [facility] [id number] [facility] 2023-08-06 13:40:00 2023-08-06 14:29:31 [facility] 1.2.840.114 350.1.13.10 4.2.7.2.686 [id number] 044 [id number] [facility] 2023-08-06 08:40:00 2023-08-06 08:40:00 Outpatient R OBI-FRANKLIN , JESS [facility]FRANKLIN [facility] [id number] [facility] 2023-07-31 00:00:00 2023-08-01 12:29:54 Telephone Konrad Ordoñez [facility] BUILDING 1.2.840.114 350.1.13.10 4.2.7.2.686 [id number] 044 [id number] [facility] 2023-07-31 00:00:00 2023-07-31 18:10:27 Refill Obi-Franklin [facility] NAL BUILDING 1.2.840.114 350.1.13.10 4.2.7.2.686 [id number] 044 [id number] [facility] 2023-07-30 00:00:00 2023-07-31 09:10:12 Patient Secure Msg [facility] 1.2.840.114 350.1.13.10 4.2.7.2.686 [id number] 044 [id number] [facility] 2023-07-25 00:00:00 2023-07-25 09:15:22 Refill Obi-FranklinJess wyman [facility] PROFESSIO NAL BUILDING 1.2.840.114 350.1.13.10 4.2.7.2.686 [id number] 044 [id number] [facility] 2023-05-29 00:00:00 2023-06-30 18:07:42 Patient Secure Msg Obi[facility] [facility] 1.2.840.114 350.1.13.10 4.2.7.2.686 [id number] 044 [id number] [facility] 2023-06-21 11:31:00 2023-06-21 12:29:00 Emergency X BONITA TRIVEDI [facility] [id number] [facility] 2023-06-21 11:31:00 2023-06-21 12:29:00 Emergency Bonita Trivedi [facility] 1.2.840.114 350.1.13.10 4.2.7.2.686 [id number] 084 [id number] [facility] 2023-06-18 08:40:00 2023-06-18 08:40:00 Outpatient R OBI-FRANKLIN , JESS [facility]BI[facility]FRANKLIN [facility] [id number] [facility] 2023-06-12 00:00:00 2023-06-12 00:00:00 Patient Secure Msg Obi-Franklin [facility] BU[facility] 1.2.840.114 350.1.13.10 4.2.7.2.686 [id number] 044 [id number] [facility] 2023-06-06 13:00:00 2023-06-06 13:00:00 Outpatient R OBI-FRANKLIN , JESS [facility]BI[facility]FRANKLIN , [facility] [id number] [facility] 2023-05-29 00:00:00 2023-05-29 00:00:00 Refill Obi-Franklin Jess [facility] 1.2.840.114 350.1.13.10 4.2.7.2.686 [id number] 044 [id number] [facility] 2023-04-25 15:00:00 2023-04-25 15:00:00 Outpatient R OBI-FRANKLIN , JESS OBI-FRANKLIN , [facility] [id number] [facility] 2023-04-23 00:00:00 2023-04-23 00:00:00 Refill Obi-Franklin [facility] BUILDING 1.2.840.114 350.1.13.10 4.2.7.2.686 [id number] 044 [id number] [facility] 2023-04-11 00:00:00 2023-04-11 00:00:00 Refill Obi-FranklinJess wyman [facility] BUILDING 1.2.840.114 350.1.13.10 4.2.7.2.686 [id number] 044 [id number] [facility] 2023-04-05 00:00:00 2023-04-05 00:00:00 Telephone Jeimy Jess [facility] BUILDING 1.2.840.114 350.1.13.10 4.2.7.2.686 [id number] 044 [id number] [facility] 2023-04-03 00:00:00 2023-04-03 00:00:00 Telephone AlfredoyannickCarlos hoffman [facility] BUILDING 1.2.840.114 350.1.13.10 4.2.7.2.686 [id number] 044 [id number] [facility] 2023-04-03 00:00:00 2023-04-03 00:00:00 Patient Secure Msg [facility] 1.2.840.114 350.1.13.10 4.2.7.2.686 [id number] 044 [id number] [facility] 2023-04-01 00:00:00 2023-04-01 00:00:00 Refill Obi-Jess Reid [facility] BUILDING 1.2.840.114 350.1.13.10 4.2.7.2.686 [id number] 044 [id number] [facility] 2023-03-02 00:00:00 2023-03-02 00:00:00 [facility] 1.2.840.114 350.1.13.10 4.2.7.2.686 [id number] 044 [id number] [facility] 2023-02-19 00:00:00 2023-02-19 00:00:00 Refill Obsuzanne-Jess Reid [facility] BUILDING 1.2.840.114 350.1.13.10 4.2.7.2.686 [id number] 044 [id number] [facility] 2023-01-26 00:00:00 2023-01-26 00:00:00 Patient Secure Msg Doctor Unassigned, [place] [facility] 1.2.840.114 350.1.13.10 4.2.7.2.686 [id number] [id number] [facility] 2023-01-24 15:00:00 2023-01-24 15:25:03 Outpatient R OBI-FRANKLIN , JESS [facility]FRANKLIN , [facility] [id number] [facility] 2023-01-24 15:00:00 2023-01-24 15:25:03 Office Visit Jeimy [facility] 1.2.840.114 350.1.13.10 4.2.7.2.686 [id number] 044 [id number] [facility] 2023-01-16 00:00:00 2023-01-16 00:00:[address] [facility] 1.2.840.114 350.1.13.10 4.2.7.2.686 [id number] 044 [id number] [facility] 2023-01-15 00:00:00 2023-01-15 00:00:00 Orders Only Doctor Unassigned, [place] [facility] 1.2.840.114 350.1.13.10 4.2.7.2.686 [id number] [facility] 2023-01-15 00:00:00 2023-01-15 00:00:00 Patient Secure Msg Doctor Unassigned, [place] [facility] 1.2.840.114 350.1.13.10 4.2.7.2.686 [id number] 044 [id number] [facility] 2023-01-08 00:00:00 2023-01-08 00:00:[address] [facility] 1.2.840.114 350.1.13.10 4.2.7.2.686 [id number] 044 [id number] [facility] 2023-01-06 00:00:00 2023-01-06 00:00:00 Orders Only Doctor Unassigned, [place] [facility] 1.2.840.114 350.1.13.10 4.2.7.2.686 [id number] [facility] 2023-01-05 00:00:00 2023-01-05 00:00:00 Telephone Jess Munson [facility] MALICK [facility] BU[facility] 1.2.840.114 350.1.13.10 4.2.7.2.686 [id number] 044 [id number] [facility] 2023-01-03 00:00:00 2023-01-03 00:00:00 Telephone [facility] 1.2.840.114 350.1.13.10 4.2.7.2.686 [id number] 044 [id number] [facility] 2023-01-01 00:00:00 2023-01-01 00:00:00 Patient Secure Msg Doctor Unassigned, [place] [facility] BUILDING 1.2.840.114 350.1.13.10 4.2.7.2.686 [id number] 044 [id number] [facility] 2022-12-28 00:00:00 2022-12-28 00:00:00 Patient Secure Msg Jeimy [facility] BUILDING 1.2.840.114 350.1.13.10 4.2.7.2.686 [id number] 044 [id number] [facility] 2022-12-26 00:00:00 2022-12-26 00:00:00 Telephone Jeimy [facility] 1.2.840.114 350.1.13.10 4.2.7.2.686 [id number] 044 [id number] [facility] 2022-12-25 14:45:00 2022-12-25 15:00:00 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 2, Adc Lab Jeimy [facility] 1.2.840.114 350.1.13.10 4.2.7.2.686 [id number] [facility] 2022-12-25 14:00:00 2022-12-25 14:14:40 Outpatient R OBI-FRANKLIN JESS OBI-FRANKLIN , JESS [facility] [id number] [facility] 2022-12-25 14:00:00 2022-12-25 14:14:40 Office Visit Obi-FranklinJess wyman [facility] ..840.114 350.1.13.10 4.2.7.2.686 [id number] 044 [id number] [facility] 2022-12-19 10:00:00 2022-12-19 10:00:00 Outpatient R OBI-FRANKLIN , JESS OBI-FRANKLIN , JESS [facility] [id number] [facility] 2022-07-19 15:30:00 2022-07-19 15:30:00 Outpatient R KAMILA MILAN [facility] [id number] [facility] 2022-04-14 10:00:00 2022-04-14 10:00:00 Outpatient R [facility] [id number] [facility] 2022-01-20 13:00:00 2022-01-20 14:43:14 Outpatient R JACINTA VOSS [facility] [id number] [facility] 2022-01-20 13:00:00 2022-01-20 14:43:14 Office Visit Provider, Dylan-AlexchMeche Chicas Brenda A [facility] SUPER[employer] [facility] 02.20.840.114 350.1.13.10 4.2.7.2.686 [id number] [facility] 2022-01-16 10:45:00 2022-01-16 10:45:00 Outpatient R MECHE ROBERSON [facility] [id number] [facility] 2022-01-05 00:00:00 2022-01-05 00:00:00 Encounter 1.2.840.1 [id number] .[id number] 1.2.840.114 350.1.13.10 4.2.7.2.696 [id number] [facility] 2022-01-03 00:00:00 2022-01-03 00:00:00 Orders Only Doctor Unassigned, [place] [facility] 1.2840.114 350.1.13.10 4.2.7.2.686 [id number] [facility] 2021-12-29 00:00:00 2021-12-29 00:00:00 Patient Secure Msg Rodrick Pete [facility] [employer] [facility] & [facility]ILD [facility] 1.20.114 350.1.13.10 4.2.7.2.686 [id number] [facility] 2021-12-22 07:45:00 2021-12-22 08:42:11 Outpatient R JACINTA VOSS [facility] [id number] [facility] 2021-12-22 07:45:00 2021-12-22 08:42:11 Routine Visit Provider, Ang-Rmchp Jacinta Parra [facility] [employer] [facility] 1.20.114 350.1.13.10 4.2.7.2.686 [id number] [facility] 2021-12-03 00:00:00 2021-12-03 00:00:00 Patient Secure Msg Doctor Unassigned, [place] [facility] 1.2840.114 350.1.13.10 4.2.7.2.686 [id number] [facility] 2021-11-30 00:00:00 2021-11-30 00:00:00 Patient Secure Msg Pete, Roshunda R [facility] [employer] [facility] MAT[facility]NAL & [facility]ILD [facility] 1.2.840.114 350.1.13.10 4.2.7.2.686 [id number] [facility] 2021-11-26 03:26:00 2021-11-29 10:05:00 Inpatient P ADVANESSA MG [facility] [id number] [facility] 2021-11-26 03:26:00 2021-11-29 10:05:00 Hospital Encounter Vanessa Leyva [facility] 1.2.840.114 350.1.13.10 4.2.7.2.686 [id number] [facility] 2021-11-26 15:34:00 2021-11-27 08:48:00 Anesthesia Event Wilver Owens [facility] 1.2.840.114 350.1.13.10 4.2.7.2.686 [id number] [facility] 2021-11-26 10:17:37 2021-11-26 10:17:37 Anesthesia Event Wilver Owens [facility] 1.2.840.114 350.1.13.10 4.2.7.2.686 [id number] [facility] 2021-11-23 09:45:00 2021-11-23 10:25:58 Outpatient LOVE SANTA EMILY [facility] [id number] [facility] 2021-11-23 09:45:00 2021-11-23 10:25:58 Routine Visit Provider, [facility] Health[facility] Rose Emily J. [facility] [employer] [facility] MATERNAL & CHILD [facility] 1.2.840.114 350.1.13.10 4.2.7.2.686 [id number] [facility] 2021-11-11 09:45:00 2021-11-11 10:12:23 Routine Visit Rodrick Pete [facility] [employer]PER[employer] [facility] & CHILD [facility] 1.2840.114 350.1.13.10 4.2.7.2.686 [id number] [facility] 2021-11-11 09:45:00 2021-11-11 10:12:23 Outpatient R PETERODRICK [facility] [id number] [facility] 2021-11-11 00:00:00 2021-11-11 00:00:00 Patient Secure Msg Rodrick Pete [facility] [employer] [facility] & CHILD [facility] 1.840.114 350.1.13.10 4.2.7.2.686 [id number] [facility] 2021-11-09 00:00:00 2021-11-09 00:00:00 Telephone Rodrick Pete [facility] [employer] [facility] CHILD [facility] 1.840.114 350.1.13.10 4.2.7.2.686 [id number] [facility] 2021-11-07 00:00:00 2021-11-07 00:00:00 Refill Rodrick Pete [facility] [employer] [facility] & CHILD [facility] 1.840.114 350.1.13.10 4.2.7.2.686 [id number] [facility] 2021-10-27 17:35:00 2021-10-27 19:05:00 Outpatient X BRENDA VELÁSQUEZ [facility] [id number] [facility] 2021-10-27 17:35:00 2021-10-27 19:05:00 Emergency Brenda Velásquez K Paige [facility] 1.840.114 350.1.13.10 4.2.7.2.686 [id number] [facility] 2021-10-27 12:45:00 2021-10-27 13:34:39 Outpatient R SONIA PETEDAMARILIMAGloria [facility] [id number] [facility] 2021-10-27 12:45:00 2021-10-27 13:34:39 Routine Visit Marie Petegloria [facility] [employer] [facility] & CHILD [facility] 1..114 350.1.13.10 4.2.7.2.686 [id number] [facility] 2021-10-27 12:45:00 2021-10-27 12:45:00 Outpatient R SONIA PETELIMAGloria [facility] [id number] [facility] 2021-10-27 00:00:00 2021-10-27 00:00:00 Orders Only Doctor Unassigned, [place] [facility] 1..114 350.1.13.10 4.2.7.2.686 [id number] [facility] 2021-10-26 00:00:00 2021-10-26 00:00:00 Abstract Marie Petegloria [facility] [employer] [facility] CHILD [facility] 1..114 350.1.13.10 4.2.7.2.686 [id number] [facility] 2021-10-21 09:45:00 2021-10-21 10:30:00 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 Ultrasound, Vinh Stone [facility] [employer] [facility] & CHILD [facility] 1..114 350.1.13.10 4.2.7.2.686 [id number] [facility] [facility] 2021-10-21 09:45:00 2021-10-21 09:45:00 Outpatient VINH JOY SANGEETA [facility] [id number] [facility] 2021-10-18 00:00:00 2021-10-18 00:00:00 Patient Secure Msg Doctor Unassigned, [place] [facility] [employer] [facility] 1..840.114 350.1.13.10 4.2.7.2.686 [id number] 107 [id number] [facility] 2021-10-18 00:00:00 2021-10-18 00:00:00 Telephone Rodrick Pete [facility] 1..840.114 350.1.13.10 4.2.7.2.686 [id number] 107 [id number] [facility] 2021-10-14 08:00:00 2021-10-14 08:34:31 Outpatient R RODRICK PETE [facility] [id number] [facility] 2021-10-14 08:00:00 2021-10-14 08:34:31 Routine Visit Rodrick Pete [facility] [employer] [facility] ..840.114 350.1.13.10 4.2.7.2.686 [id number] 107 [id number] [facility] 2021-09-29 10:45:00 2021-09-29 11:39:29 Outpatient R RODRICK PETE [facility] [id number] [facility] 2021-09-29 10:45:00 2021-09-29 11:39:29 Routine Visit Rodrick Pete [facility] ..840.114 350.1.13.10 4.2.7.2.686 [id number] 107 [id number] [facility] 2021-09-29 10:45:00 2021-09-29 10:45:00 Outpatient R RODRICK PETE [facility] [id number] [facility] 2021-09-16 00:00:00 2021-09-16 00:00:00 Patient Secure Msg Doctor Unassigned, [place] [facility] 1.114 350.1.13.10 4.2.7.2.686 [id number] [facility] 2021-09-16 00:00:00 2021-09-16 00:00:00 Telephone Rodrick Pete [facility] 1.84.114 350.1.13.10 4.2.7.2.686 [id number] 107 [id number] [facility] 2021-09-16 00:00:00 2021-09-16 00:00:00 Telephone Rodrick Pete [facility] 1.84.114 350.1.13.10 4.2.7.2.686 [id number] 107 [id number] [facility] 2021-09-15 10:45:00 2021-09-15 11:53:13 Outpatient R RODRICK PETE [facility] [id number] [facility] 2021-09-15 10:45:00 2021-09-15 11:53:13 Routine Visit Rodrick Pete [facility] [employer] [facility] 1..114 350.1.13.10 4.2.7.2.686 [id number] 107 [id number] [facility] 2021-09-13 00:00:00 2021-09-13 00:00:00 Refill Rodrick Pete [facility] 1..114 350.1.13.10 4.2.7.2.686 [id number] 107 [id number] [facility] 2021-08-23 08:45:00 2021-08-23 22:46:00 Outpatient X FISH, BRENDA [facility] [id number] [facility] 2021-08-23 08:45:00 2021-08-23 22:46:00 Emergency MartinezIvanna stephenson Megan [facility] 1.2.840.114 350.1.13.10 4.2.7.2.686 [id number] [facility] 2021-08-18 10:30:00 2021-08-18 10:44:10 Outpatient R RODRICK PETE [facility] [id number] [facility] 2021-08-18 10:30:00 2021-08-18 10:44:10 Routine Visit Rodrick Pete [facility] 1.840.114 350.1.13.10 4.2.7.2.686 [id number] 107 [id number] [facility] 2021-08-11 00:00:00 2021-08-11 00:00:00 Patient Secure Msg Rodrick Pete [facility] 1.2.0.114 350.1.13.10 4.2.7.2.686 [id number] 107 [id number] [facility] 2021-08-11 00:00:00 2021-08-11 00:00:00 Refill Rodrick Pete [facility] 1.2.840.114 350.1.13.10 4.2.7.2.686 [id number] 107 [id number] [facility] 2021-08-11 00:00:00 2021-08-11 00:00:00 Refbrandy Rodrick Pete [facility] 1.2.840.114 350.1.13.10 4.2.7.2.686 [id number] 107 [id number] [facility] 2021-08-11 00:00:00 2021-08-11 00:00:00 Refill Rodrick Pete [facility] [facility] 1.2.840.114 350.1.13.10 4.2.7.2.686 [id number] 107 [id number] [facility] 2021-08-02 00:00:00 2021-08-02 00:00:00 Abstract Rodrick Pete [facility] [facility] 1.2.840.114 350.1.13.10 4.2.7.2.686 [id number] 107 [id number] [facility] 2021-08-01 00:00:00 2021-08-01 00:00:00 Patient Secure Msg Doctor Unassigned, [place] [facility] 1.2.840.114 350.1.13.10 4.2.7.2.686 [id number] 107 [id number] [facility] 2021-07-29 09:30:00 2021-07-29 10:45:00 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 Ultrasound, Rodrick Forbes Antonio F [facility]/GYN [facility] 1.2.840.114 350.1.13.10 4.2.7.2.686 [id number] [facility] 2021-07-29 09:30:00 2021-07-29 09:30:00 Outpatient P [facility] [id number] [facility] 2021-07-29 09:30:00 2021-07-29 09:30:00 Outpatient P MADDIE ROMEO [facility] [id number] [facility] 2021-07-29 08:00:00 2021-07-29 08:36:27 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 Lab, Rodrick Singleton [facility] 1.840.114 350.1.13.10 4.2.7.2.686 [id number] 107 [id number] [facility] 2021-07-23 00:00:00 2021-07-23 00:00:00 Patient Secure Msg Doctor Unassigned, [place] [facility] 1.840.114 350.1.13.10 4.2.7.2.686 [id number] [facility] 2021-07-21 09:00:00 2021-07-21 10:12:55 Outpatient RODRICK DENNIS [facility] [id number] [facility] 2021-07-21 09:00:00 2021-07-21 10:12:55 Routine Visit Rodrick Pete [facility] 1.840.114 350.1.13.10 4.2.7.2.686 [id number] 107 [id number] [facility] 2021-07-21 09:00:00 2021-07-21 10:12:55 Outpatient RODRICK DENNIS [facility] [id number] [facility] 2021-07-21 09:00:00 2021-07-21 09:00:00 Outpatient RODRICK DENNIS [facility] [id number] [facility] 2021-07-21 09:00:00 2021-07-21 09:00:00 Outpatient RODRICK DENNIS [facility] [id number] [facility] 2021-07-17 02:36:00 2021-07-17 06:54:00 Emergency X CARO BAUER [facility] [id number] [facility] 2021-07-17 02:36:00 2021-07-17 06:54:00 Emergency Caro Bauer S [facility] 1.840.114 350.1.13.10 4.2.7.2.686 [id number] [facility] 2021-07-12 00:00:00 2021-07-12 00:00:00 Telephone Lolly Petereno Demetri [facility] [employer] 1.2.840.114 350.1.13.10 4.2.7.2.686 [id number] 107 [id number] [facility] 2021-07-06 00:00:00 2021-07-06 00:00:00 Telephone Lolly Petereno Demetri [facility] [facility] 1.2.840.114 350.1.13.10 4.2.7.2.686 [id number] 107 [id number] [facility] 2021-06-28 01:26:00 2021-06-29 10:10:00 Outpatient X BRENDA VELÁSQUEZ [facility] [id number] [facility] 2021-06-28 01:26:00 2021-06-29 10:10:00 Emergency Alayna Bear S Eduardo Velásquezn [facility] 1.2.840.114 350.1.13.10 4.2.7.2.686 [id number] [facility] 2021-06-27 20:49:00 2021-06-27 20:59:00 Emergency X [facility] [id number] [facility] 2021-06-27 20:49:00 2021-06-27 20:59:00 Emergency [facility] 1.2.840.114 350.1.13.10 4.2.7.2.686 [id number] [facility] 2021-06-24 00:00:00 2021-06-24 00:00:00 Patient Secure Msg PeteRodrick [facility] 1.2.840.114 350.1.13.10 4.2.7.2.686 [id number] 107 [id number] [facility] 2021-06-24 00:00:00 2021-06-24 00:00:00 Telephone Rodrick Pete [facility] [employer] [facility] 1..840.114 350.1.13.10 4.2.7.2.686 [id number] 107 [id number] [facility] 2021-06-23 14:00:00 2021-06-23 15:33:45 Outpatient R RODRICK PETE [facility] [id number] [facility] 2021-06-23 14:00:00 2021-06-23 15:33:45 Initial Visit Rodrick Pete [facility] 1.840.114 350.1.13.10 4.2.7.2.686 [id number] 107 [id number] [facility] 2021-06-23 14:00:00 2021-06-23 15:33:45 Outpatient R RODRICK PETE [facility] [id number] [facility] 2021-06-23 14:00:00 2021-06-23 15:33:45 Outpatient R RODRICK PETE [facility] [id number] [facility] 2021-06-23 00:00:00 2021-06-23 00:00:00 Orders Only Doctor Unassigned, [place] [facility] 1.840.114 350.1.13.10 4.2.7.2.686 [id number] [facility] 2021-06-22 08:04:00 2021-06-22 13:00:00 Emergency X ANGUS DWYER [facility] [id number] [facility] 2021-06-22 08:04:00 2021-06-22 13:00:00 Emergency Angus Dwyer [facility] 1.2.840.114 350.1.13.10 4.2.7.2.686 [id number] [facility] 2021-06-21 22:18:00 2021-06-21 23:26:00 Emergency Caro Bauer [facility] 1.2.840.114 350.1.13.10 4.2.7.2.686 [id number] [facility] 2021-06-21 22:18:00 2021-06-21 23:26:00 Emergency X CARO BAUER [facility] [id number] [facility] 2021-06-21 22:18:00 2021-06-21 23:26:00 Emergency X CARO BAUER [facility] [id number] [facility] 2021-06-11 12:44:00 2021-06-14 18:06:00 Inpatient X JOSE DE JESUS MEDINA [facility] [id number] [facility] 2021-06-11 12:44:00 2021-06-14 18:06:00 Hospital Encounter Abdullahi Gomez Christopher Adum, Vivian L Lam, Vien [facility] 1.2.840.114 350.1.13.10 4.2.7.2.686 [id number] [facility] 2021-05-30 23:49:00 2021-06-03 14:41:00 Hospital Encounter Abdullahi Gomez Shannon M [facility] 1.2.840.114 350.1.13.10 4.2.7.2.686 [id number] [facility] 2021-05-30 23:49:00 2021-06-03 14:41:00 Inpatient X EDITH TERRY SHANNON [facility] [id number] [facility] Results Test Description Test Time Test [...] abdomen and pelvisdemonstrate no osseous destructive lesion. [facility] (31987)2024-02-22 06:46:27* Test Item Value Reference Range Interpretation Comme nts NA (test code = 7003740240) 138 mmol/L 135-145 K (test code = 0658628371) 3.9 mmol/L 3.5-5.0 CL (test code = 3135216355) 104 mmol/L 98-108 CO2 TOTAL (test code = 7720716668) 22 mmol/L 23-31 L AGAP (test code = 6810420891) 12 2-16 BUN (test code = 8352067941) 11 mg/dL 7-23 GLUCOSE (test code = 8133364461) 113 mg/dL 70-110 H CREATININE (test code = 2160-0) 0.50 mg/dL 0.50-1.04 TOTAL BILI (test code = 3071866173) 0.9 mg/dL 0.1-1.1 CALCIUM (test code = 9717873049) 9.5 mg/dL 8.6-10.6 T PROTEIN (test code = 2683643065) 8.5 g/dL 6.3-8.2 H ALBUMIN (test code = 4774592161) 4.8 g/dL 3.5-5.0 ALK PHOS (test code = 1244513246) 81 U/L 34-122 ALTv (test code = 1742-6) 15 U/L 5-35 AST(SGOT) (test code = 5454120299) 21 U/L 13-40 eGFR (test code = 95819-7) 132.0 mL/min/1.73m2 CKD-EPI eGFR (2020). Assuming creatinine has been stable day-to-day for at least three months, the eGFR indicates Category G1 (>= 90 mL/min/1.73 m2) Lab Interpretation (test code = 07749-7) [facility] Test Item Value Reference Range Interpretation Comme nts LIPASE (test code = 9182272354) 24 U/L 0-220 Lab Interpretation (test cod e = 02040-0) Normal [facility] WITH [id number] 06:27:08* Test Item Value Reference Range Interpretation [...] 33.9 g/dL 31.6-35.1 RDW-SD (test code = 36273-0) 48.3 fL 39.0-49.9 RDW-CV (test code = 788-0) 12.9 % 12.0-15.5 PLT (test code = 777-3) 402 166-358 H MPV (test code = 53330-1) 9.3 fL 9.5-12.9 L NRBC/100 WBC (test code = 6840762123) 0.0 0.0-10.0 NRBC x10^3 (test code = 5928913024) See_Comment [Automated message] The system which generated this result transmitted reference range: 10*3/?L. The reference range was not used to interpret this result as normal/abnormal. GRAN MAT (NEUT) % (test code = 770-8) 89.3 % IMM GRAN % (test code = 6685194552) 0.40 % LYMPH % (test code = 736-9) 7.4 % MONO % (test code = 5905-5) 2.7 % EOS % (test code = 713-8) 0.1 % BASO % (test code = 706-2) 0.1 % GRAN MAT x10^3(ANC) (test code = 4043310805) 12.26 10*3/uL 1.88-7.09 H IMM GRAN x10^3 (test code = 1141994503) 0.06 10*3/uL 0.00-0.06 LYMPH x10^3 (test code = 731-0) 1.02 10*3/uL 1.32-3.29 L MONO x10^3 (test code = 742-7) 0.37 10*3/uL 0.33-0.92 EOS x10^3 (test code = 711-2) 0.03-0.39 L BASO x10^3 (test code = 704-7) 0.01-0.07 Lab Interpretation (test code = 80949-5) Abnormal [facility] [id number] 16:19:00* Test Item Value Reference Range Interpretation Comme nts POCT PREG (test code = 1605) Negative On board controls acceptable with C Line (test code = 3574) Yes POCT PREG LOT # (test code = 3575) [id number] POCT PREG TEST DATE ( test code = 3576) 05/27/2024 [facility] Kcic8515-83-03 16:19:00* Test Item Value Reference Range Interpretation Comme nts POCT PREG (test code = 1605) Negative On board controls acceptable with C Line (test code = 3574) Yes POCT PREG LOT # (test code = 3575) [id number] POCT PREG TEST DATE ( test code = 3576) 05/27/2024 [facility] [id number] 10:32:00* Test Item Value Reference Range Interpretation Comme nts POCT PREG (test code = 1605) Negative On board controls acceptable with C Line (test code = 3574) Yes POCT PREG LOT # (test code = 3575) [id number] POCT PREG TEST DATE ( test code = 3576) 2024-11-23 Lab Interpretation (test cod e = 18078-0) [facility] [id number] 16:13:04* Test Item Value Reference Range Interpretation Comme [facility] Case Report (test code = 9112102283) Surgical Pathology ?Case: [id number] ? Authorizing Provider: ?Yisel Hart MD ?Collected: ? 12/24/2023 1057 ?Ordering Location: ? ? GI Endoscopy OR Department Received: ?12/24/2023 1148 ?Pathologist: ? Brendon Dawson MD PhD ?Specimen: ? ?STOMACH, 1. gastric biopsy ? Final Diagnosis (test code = 2135512359) g6jblMOnEHBft1ssIZHyqOSbU zEwMzNcZnRuYmpcdWMxIHtccn UvYDheuLtpGRC5QCUyEP1owUy adFi5vIokGBQthmN8lGFeLIfz r9zrYCK5n7xijxfeZVSvFEgiL v9xeHTkhEikEzSgMFDuEVu7vW 98ENAnkK3dlUAtNOt5MSJfzSL nnhSaOsAyXPYciRFuwSI2VDWh AQ2iumybXUpgRIioHLTpmzZ2C GDvrHOsZ2HxZUOrBT0unafcJF U4LQtgVZOpGAH1KtPuYDFsa5K anow7MwEcjAVgZLvyzGKbwmcq ifSzCHHrpeZFYlANUY8RTOWKL DZNEJ6QF5i7NWEddavxmUC7NQ GrYObJB4YGCIRjQPBJI0VOARp CXAqnOr0jRKROJZ8KR5xHW0JX QDIHRS7PESqfDIFmKPOFCyRIJ 7QJRyhDCKNWQtDPWvTTS6KTEy NGGC9DKDDOUVZIITOjQHRQIpV JRklFRFxwYXIgLSBOTyBILiBQ WUxPUkktTElLRSBPUkdBTklTT VMgSURFTlRJRklFRFxwYXJccG RdBMyfMDG0v3gydAEnPWEzmPY bSmXhNMRaDAPjf9onKLXcfNRe ZzEwMzNcZnRuYmpcdWMxXGRlZ tJwj7qgd130rSVjq9wlCAIoPb C3yOSgOUOkvPacais8sZzgHdY cVNLnu8nixtUiSnIdUPWdEBSa UGEfwQMvH020AJGcSBkjm9pqq 0XkSVFadTKiz6M7KKIPOErrZl VrA830b4mwe2pccwVrvQL3SPA dSKC3SJrrxhRhvlP4NNbnnBCa MuS3VAlvczLsSMaozmPuviKzI rs8NIOwH902ZVZ1uNabr7tfNX A9VSTgJVBuSeqgBj1xvRIkB39 5ZUZfETRHDGWokWr7IJKjlhWc toPkrVWWb713Y176b0orWLUlg lElyEmEhomze6ddB484MBQzkE BuoaFpSzJvOUJscCXafAJ7ULF oYU5kzzyeINrnYHnyBCRnkkU0 ZEVuwXBfH2UtNRRsVZ6huluxY EM4GUrwLEOfIIF6QiYxSMNae4 Srgss0FdOuuj4ave78CDS2g6M kwSqaSBC6SDL9UxPeMs6szCQl USRpTK7lQzWdcNKjRZZsnp11o ZbgQZkrjmAadQ2bBdLcUVIxlU PoLZMeBK2ugGWjUBPbtX5rzhq jXHBnYnJkcmhlYWRccGdicmRy Lr7ypAlkAKS5DTmvL3cawC9rI gI7MRokE1gykE6cRPa4ITtjdU H5HZFypL7fPX1kstqyl9vxQCw rTVdiKSApdjA7erA0CKJmeCAq G9HlvL0sXEQjGY1jyrdga8daE GA6XBqaOHMaGSV6LdNgJYGro1 Nwjjk9WsQze0EynHSdFEzrL28 re264COAtawCsF9mjnUOfujcy tVJdaacaSBcxihC6XPOvGNBiP WluXGYxXGZzMjBcbGFuZzEwMz NcaGljaFxmMVxkYmNoXGYxXGx aN7pwAmHlF1FxDREoLgJjpHSf WJepcVB6VXCuRQMrj05lgNh1W KNijtjim3IiBNLksOZukFOpbZ 9qikFby7nhKVAdMNZxAWTqT5W sRPN5iTDnYYWspQArrMA9KE7y tuBwBQ4iFQMiXnuemxNnxBPcj iVmSPXdRCobo3aaVM7tHNApwR pwbE3xtZG2CESyy5virFGqkCM df3dcw6JicaQnCUgkLWKdOTjr OMDxUSXlYI2zECUvqDTxubWsm 5X7NvqilJJpogygUkjjsgB7TS nijdimXGOzZBghW6ezDoZqURQ uvXbzMujfm2RwKJTuSCMoKbbp cGFyfX0= Clinical Information (test code = 3986970366) Lanre Bales is a 28 year old femaleHematemesis with nausea [K92.0]Coffee ground emesis [K92.0]Abdominal pain, epigastric [R10.13]1. gastric biopsy eval H pylori Gross Description (test code = 5935578057) v2vljJPsJWZfjIFJCKN7FYGeC D6yuFpdoOw9aTacZTQckmN4fV TdVWdrq8onMIJ2d4jlztQAWxg vRANnFA7nCWokWANrQX5lDvQm XGRlZmYxXHBhcGVydzEyMjQwX POchXZdzJM2SATqWG3czmdcGI arIHhkZBXwpjT8QGCqxXLdF0C wOYQxZU2tnqizSPR0ZPXVEewb Nk7vgTAsyKrdIkJeDxZaFZXlV ZBeDJFdp1lgapAHxuqzdBw8qR 2FEGVoJ3SwZA6Jf5oxIEQupUG iKFT6QNsas1qjLKazOZO6FZMg YJZnWPEkUY0COwRrWGN7QBq2S CBdXaW8QXk5VZAEOVYfJTK3QN O2WuU9GEt6KMVvPK1kJNpsrGH bYBuuBsqaGCxmH070CJsuCXOk E8OtL7JcCKznTnUoZPjxGGRoQ GIlPFbdMXQvX2SOTEOaHBK4YU M6BWEdGPr4ZDl5WI8PIsSuYMD wHps6JuL2QUQuHSg5YPeaTX5Y TKOfEUU3IDxxJwRbDCVwKYAvN Mj7ACAkGQiclgRcBMccPkcmST dbD05tqODfOKBZIkuozKAzevd mczIwIFNQRUNJTUVOIEFcbHRy V6wvFzCgGqtpRAKdQWeoxOLuO CANClxwbGFpblxsdHJjaFxmcz ZrBRJqiQDGKLF9BB3hRGJHDfm peUApGJIcMTlQqEEalU9lcxIJ ALtvENUmW0HhkmNySGxxEOFqv a0kmMiwOZjcAgKxaKYdKVkhzQ bunEwoCPJkpQmxtzOpH4E6enI hMC0jHWTNOGHkaS1cJTTfVVWl s1KfvWBahBtaU8DvgWSpQcYuk F8ts5eiW0C5XBdRIRQpkxPeU7 8wm0jpwDXuu4KpGpW1BP9dpBq jwrHcheVtO6DvVBJkr94myOD1 uKOdoAKnEwAeP37hrrUhDMehL hOgFG85QROjGXsaNSS1FPS5JF SotEXgr5cmbhjcRO21FHckNY2 7IMyuTC9yLJFrHIutYQGlN4Pg K9G8YHhiIZLuGISluNRnsC4sl kGygnYzwFy9NWUgYYS6xFHpiR gzBVSaOddekRS2RLHaMxItltH xx9NhhFj6uLDaHQrfDYQpeH3h uH6zCRQaHHVctuMYDvaxOODbT Ixvh0EkPAzgsMhgRAHzIzLpJY qZbMlzLCPMU2pvwEJyXMusPXC JYGuON2ADZV2WTICnyPHTRKG3 QG6jVIitVLXeL4UoY5ExziJ1j 2ircQagc0GydWUhXL3zyKJwRQ 7ALNDohoRqOPr6 Disclaimer (test code = [id number]) n3badTHuPBJwv2stRULyeGUwM zEwMzNcZnRuYmpcdWMxIHtccn GsYItrc9KgH5LvChXxHZbrjmP cOCFlLjyukxejXXJrLNJ0xiAm CYJgWNvxTGKaETuySz1puSMnj OnnYxFdLPVzj2jrsqDTNMckXh MwP215YBUsTVbgo4zdt2EpMIA siAHra7H3UJLPurtxkFy4oAyg C73im5F2GetwJ2fiVYRjIKCkS 2TlFQ5kEVHnIuo4WLT2DLY2HR RfSLTvH1BnVJ4pZZNbyJQcVEp 6c8iltWblEXJwCKA6n0qjJSiy hxOaLA7xme4auMo6y9mhtpBaT PWyKNWtbEEJEQNaR4LhmTyiWx 5hjOa3jHlyRyikWKO5Xnx3VN6 fzm99akd5xZxtXCFfrrenGjL5 FFqvMFZahzqnYPk9YNjfNXGry KJ8UWKmsLEtI8TuKRDcPF9gjo s1BVT1GGfyKIUoVtU7NCGyfYA nUUPluFslGKndq737IHS2IbFe NO7lT6Vqb8M0wX4usPBhMMMrm UOiQxLkDAEmde6tpXIwWHvna0 ZnPQR0sqI9yTBjmPZzIZSmRE8 6Fcwtx7LbOrvam1ZsS28raTZ4 YPyur0cbAJ5zEvA2kwQaLMdga 6qwnG7hWyH5PCssPW4tBA7rUZ AceH1unptmHNUvZiGitobuAKG ywExprdIeJd0eaOqhRQH6IHvr K5nlbJ4dUmJ0BAjkR4nauZ4aM Gb5EIlfiME1MIYjmX3hQA4xki fes7ctHJysRSfaAXIzgiS2ppQ 5XXKsaTXdU5AcbB6bTQQoDE6k kjslq4kaEPI3BRmmDWTlNSF4Z pEjIFAen7Ytcnn8UdTtd9GnaS XuCOhoV14sw683CPCarhPyS5w wbGFpblxwbGFpblxmMFxmczI0 PEXsyrDba4VvOJNkKQZ4ISicB WdcuUNhYMLkaAygl9ckR0WteZ FyXHBsYWluXGYxXGZzMjBcbGF uZzEwMzNcaGljaFxmMVxkYmNo UTWjPXlqE5xfUrOwX1XtDMAyT sQdtJZhM6foHSxnqoMaKGHkkz BflPS2PNqjW1i9KWJxrjPjuUf 6owLyNzUqKEPqCUF3MBvhxTHf MFDal4YjbvqzdKOlVt5paMDzQ WDnyR7dYGJdMXPlJLzmQZ6qhQ k8DGWVsQDaiOTuFeDLAKUaPM5 8kfZpRCPLynnfd5S3JMdqTNUv g3YirSNpH9gqe1WrGJQpt32hL W7oo0U5g6npVFC7MX4ht0BgCQ OuyIOezBZiDCAhf8Gwtjefj6M fCKMldwNcy8CjDDRpzrXbuBDz JVEzftCagr5avzOqKXYoITEnP 5NsutftuJgvtbBbBRSyzd4ysf IyTIK1PQKVARRxTFRpl1MkyR5 mnLDJSBB9fRGpvq4csjMPlZSo CWCwcn42DQQhZI4mA5xwBGXcE EHwgkMzsHCkw3OjXTQcvDY0lE HiPJ3URxSZr43pUKEhAGWRkoE jBFFssAtpnYY0joY7qT9sTQdU REEpLlx+UGUtQPRFBWEyLJ0jy tTen2LhzcOnpRpfSHKvlGBnk1 YpjEPbq2IcfKfgd2MteIBxhZP aBV3xIGEjdnpfPVOjFTGUPwPQ XIAgtzR4l8PdEFEfNSSnJAK1c Qdqici2JAFxdD5sRIQgB9marw aoNBveJELis8ZgnK1ydNZJjII kz2KguYQyrQFDhKZtGA9rbyOb MTfTXGwKXUX7qmBbWASji2MaI IfrY3ixP51mkLinlEc7fBL9VD Z7bL1mUis+IFxwYXJccGFyIEF ojONhkISsOGXijVdfwbJhO1Fl tcLkpQ4oaPSwhtUyJM3aEI2jU 6S8gPQqEAOabxCuo8rcZDivvh BlQkQuhiYtZASnVDvnCZEpk3I rHKaeBNE3UBfsyaGeagQehZOt tfmqPDBZHQMUeLJwhYAyNZR7A KhdquVqmiNnZQ8maI0edHvjzR 9dnDIawCB2feclBKOyYSPhnDa wCECaSN6fjSdnsU8rBpZkHpZy FDhcKZ1lJIIcS1cipUQuOQLrS SFqW8guThWocS0qaWefWCbtLl JcZnMyMFxwYXJccGFyXHBsYWl uXGYxXGZzMjBcbGFuZzEwMzNc aGljaFxmMVxkYmNoXGYxXGxvY 3lpEaDzO9TtIDNmRkAtbJWmH4 hpNLmcVEK5JTIzYK7zpBZkQO3 8tYXvc5roTKtcpMkzde3pU59m qAHwZNxqoWftXZQgt64us0CwY XNgdlKbon7gNJQlunP0mY7yXW NydUioITVglXFqITTbf7XkIRx naXRpemVkIGdsYXNzIHNsaWRl hsW5caFolhBhwmBhMIRqnEpdC OStk0WbRLHkRGqqn9Adkg2xyX EvJUArshCIzOznmNGrwZ1nO5D cUKLgHEAoml4pAWItvQ8iHUds i5JbzltwIICuSAGdDRQsbwEco t5mQYZgrJDYUD4MGVdfkAOye9 FypoZdX1gRGSW1CRBlSbQhUlr hOSXtvVVqrCXsIWDtzj87CASu gF8zwIwhUREldI9yyH3fpXmiu N4cXdRuNuDdERlhWO9hKSEdK9 yhqROmYTRtJTWjB8fyLsKkyH4 jaFxmMVxjZjJcZnMyMFxwYXJ9 fQ== Embedded Images (test code = 9887927459) [facility] [id number] 16:40:41EXAM: US OVARY TORSION HISTORY: 28 years-old Female; Provided indication: eval for torsion; pelvicpain; bilateral 5.1cm cysts seen on CT . LMP = 4Pregnancy test = Negative. TECHNIQUE: Transabdominal and transvaginal ultrasound imaging and colorDoppler evaluation of the pelvis was performed. Spectral Doppler evaluationof the ovaries was performed. [employer] Database images were obtained for therecord. COMPARISON: Same [...] arevisualized. Normal flow is seen on color Doppler.[facility] [id number] 14:33:00Indication: Nausea/vomiting ? Comparison: None RL: 4209 [...] soft tissue: No acute osseous abnormality is noted.[facility], [id number] 11:59:46* Test Item Value Reference Range Interpretation Comme nts PREG SERUM (test code = 1502886061) Negative RUMA (test code = RUMA) Less than 10 IU/L. ?If low titer or ectopic is suspected, resubmit specimen in 48-72 hours. [facility] Metabolic [id number] 11:58:40* Test Item Value Reference Range Interpretation Comme nts NA (test code = 1286441619) 138 mmol/L 135-145 K (test code = 7508108259) 3.5 mmol/L 3.5-5.0 CL (test code = 1213260964) 106 mmol/L 98-108 CO2 TOTAL (test code = 6606967071) 23 mmol/L 23-31 AGAP (test code = 9140489530) 9 2-16 BUN (test code = 4081573502) 6 mg/dL 7-23 L GLUCOSE (test code = 7848442829) 122 mg/dL 70-110 H CREATININE (test code = 2160-0) 0.61 mg/dL 0.50-1.04 TOTAL BILI (test code = 6102474587) 0.6 mg/dL 0.1-1.1 CALCIUM (test code = 8137030240) 9.0 mg/dL 8.6-10.6 T PROTEIN (test code = 9955901365) 8.1 g/dL 6.3-8.2 ALBUMIN (test code = 1332372592) 4.4 g/dL 3.5-5.0 ALK PHOS (test code = 1409551344) 85 U/L 34-122 ALTv (test code = 1742-6) 20 U/L 5-35 AST(SGOT) (test code = 9601282883) 19 U/L 13-40 eGFR (test code = 58334-7) 125.8 mL/min/1.73m2 CKD-EPI eGFR (2020). Assuming creatinine has been stable day-to-day for at least three months, the eGFR indicates Category G1 (>= 90 mL/min/1.73 m2) Lab Interpretation (test code = 02668-2) [facility], [id number] 11:58:19* Test Item Value Reference Range Interpretation Comme nts LIPASE (test code = 3662237505) 40 U/L 0-220 Lab Interpretation (test cod e = 92443-5) Normal [facility] with Spknavcmggcu1194-63-70 11:41:57* Test Item Value Reference Range Interpretation [...] 32.8 g/dL 31.6-35.1 RDW-SD (test code = 29702-2) 51.3 fL 39.0-49.9 H RDW-CV (test code = 788-0) 13.7 % 12.0-15.5 PLT (test code = 777-3) 349 166-358 MPV (test code = 47697-5) 9.3 fL 9.5-12.9 L NRBC/100 WBC (test code = 8550362363) 0.0 0.0-10.0 NRBC x10^3 (test code = 8942357669) See_Comment [Automated messa ge] The system which generated this result transmitted reference range: 10*3/?L. The reference range was not used to interpret this result as normal/abnormal. GRAN MAT (NEUT) % (test code = 770-8) 73.3 % IMM GRAN % (test code = 8694951781) 0.40 % LYMPH % (test code = 736-9) 19.0 % MONO % (test code = 5905-5) 4.8 % EOS % (test code = 713-8) 2.0 % BASO % (test code = 706-2) 0.5 % GRAN MAT x10^3(ANC) (test code = 3895299379) 7.18 10*3/uL 1.88-7.09 H IMM GRAN x10^3 (test code = 4956790253) 0.04 10*3/uL 0.00-0.06 LYMPH x10^3 (test code = 731-0) 1.86 10*3/uL 1.32-3.29 MONO x10^3 (test code = 742-7) 0.47 10*3/uL 0.33-0.92 EOS x10^3 (test code = 711-2) 0.20 10*3/uL 0.03-0.39 BASO x10^3 (test code = 704-7) 0.05 10*3/uL 0.01-0.07 Lab Interpretation (test code = 90923-5) [facility]normal [facility] CenterCOMP. METABOLIC PANEL (73907)2023-11-08 17:45:25* Test Item Value Reference Range Interpretation Comme nts NA (test code = 9204762421) 136 mmol/L 135-145 K (test code = 5957145164) 3.1 mmol/L 3.5-5.0 L CL (test code = 3322371927) 105 mmol/L 98-108 CO2 TOTAL (test code = 7904475534) 21 mmol/L 23-31 L AGAP (test code = 5161765393) 10 2-16 BUN (test code = 0953228300) 12 mg/dL 7-23 GLUCOSE (test code = 9173363770) 92 mg/dL 70-110 CREATININE (test code = 2160-0) 0.57 mg/dL 0.50-1.04 TOTAL BILI (test code = 6191074964) 0.6 mg/dL 0.1-1.1 CALCIUM (test code = 5600978713) 9.0 mg/dL 8.6-10.6 T PROTEIN (test code = 8977699438) 8.0 g/dL 6.3-8.2 ALBUMIN (test code = 3805701121) 4.3 g/dL 3.5-5.0 ALK PHOS (test code = 3216583342) 81 U/L 34-122 ALTv (test code = 1742-6) 17 U/L 5-35 AST(SGOT) (test code = 1906870730) 45 U/L 13-40 H eGFR (test code = 56108-2) 127.9 mL/min/1.73m2 CKD-EPI eGFR (2020). Assuming creatinine has been stable day-to-day for at least three months, the eGFR indicates Category G1 (>= 90 mL/min/1.73 m2) Lab Interpretation (test code = 09997-0) [facility]normal [facility] CenterLIP[facility]20[facility] 16:30:35* Test Item Value Reference Range Interpretation Comme nts LIPASE (test code = 9258986993) 53 U/L 0-220 Lab Interpretation (test cod e = 30285-1) Normal [facility]CBC WITH [id number] 16:15:57* Test Item Value Reference Range Interpretation [...] 33.1 g/dL 31.6-35.1 RDW-SD (test code = 35527-1) 50.1 fL 39.0-49.9 H RDW-CV (test code = 788-0) 13.8 % 12.0-15.5 PLT (test code = 777-3) 471 166-358 H MPV (test code = 81173-0) 9.2 fL 9.5-12.9 L NRBC/100 WBC (test code = 5001050313) 0.0 0.0-10.0 NRBC x10^3 (test code = 6292031402) See_Comment [Automated messa ge] The system which generated this result transmitted reference range: 10*3/?L. The reference range was not used to interpret this result as normal/abnormal. GRAN MAT (NEUT) % (test code = 770-8) 77.8 % IMM GRAN % (test code = 9594759777) 0.30 % LYMPH % (test code = 736-9) 16.7 % MONO % (test code = 5905-5) 4.7 % EOS % (test code = 713-8) 0.2 % BASO % (test code = 706-2) 0.3 % GRAN MAT x10^3(ANC) (test code = 9317141694) 9.31 10*3/uL 1.88-7.09 H IMM GRAN x10^3 (test code = 6642762981) 0.04 10*3/uL 0.00-0.06 LYMPH x10^3 (test code = 731-0) 1.99 10*3/uL 1.32-3.29 MONO x10^3 (test code = 742-7) 0.56 10*3/uL 0.33-0.92 EOS x10^3 (test code = 711-2) 0.03-0.39 L BASO x10^3 (test code = 704-7) 0.03 10*3/uL 0.01-0.07 Lab Interpretation (test code = 05363-2) [facility]normal [facility] CenterPOOR [id number] 16:01:00* Test Item Value Reference Range Interpretation Comme nts POCT PREG (test code = 1605) Negative On board controls acceptable with C Line (test code = 3574) Yes POCT PREG LOT # (test code = 3575) [id number] POCT PREG TEST DATE ( test code = 3576) 11-28-24 Lab Interpretation (test cod e = 27213-8) Normal [facility] [id number] 16:30:00* Test Item Value Reference Range Interpretation Comme nts POCT PREG (test code = 1605) Negative On board controls acceptable with C Line (test code = 3574) Yes POCT PREG LOT # (test code = 3575) [id number] POCT PREG TEST DATE ( test code = 3576) 03/28/2024 Lab Interpretation (test cod e = 88322-0) Normal [facility] [id number] 20:18:00* Test Item Value Reference Range Interpretation Comme nts POCT PREG (test code = 1605) Negative On board controls acceptable with C Line (test code = 3574) Yes POCT PREG LOT # (test code = 3575) POCT PREG TEST DATE ( test code = 3576) [facility] [id number] 20:18:00* Test Item Value Reference Range Interpretation Comme nts POCT PREG (test code = 1605) Negative On board controls acceptable with C Line (test code = 3574) Yes POCT PREG LOT # (test code = 3575) POCT PREG TEST DATE ( test code = 3576) [facility] CenterDK OR [facility] - [id number] 04:42:10* Test Item Value Reference Range Interpretation Comme nts RPR (Qualitative) (test code = 97162-7) Nonreactive Nonreactive Lab Interpretation (test cod e = 38395-9) Normal [facility] CenterHepatitis B Surface Gunocga5669-50-61 17:49:35 * Test Item Value Reference Range Interpretation Comme nts HBsAg Semi-Quantitative (mesha t code = 5195-3) Negative Negative [facility] CenterHIV 1/2 AG-AB WITH [id number] 12:19:16* Test Item Value Reference Range Interpretation Comme nts HIV Semi-quantitative (test code = 32668-4) Negative Negative RUMA (test code = RUMA) Non-reactive for HIV-1 antigen and HIV-1/HIV-2 antibodies. ?No laboratory evidence of HIV infection. ?Repeat in 2-4 weeks if acute HIV infection is suspected. [facility]. METABOLIC PANEL (90452)2021-11-26 11:29:08* Test Item Value Reference Range Interpretation Comme nts NA (test code = 1777892579) 137 mmol/L 135-145 K (test code = 9706320452) 3.6 mmol/L 3.5-5 CL (test code = 0983493584) 105 mmol/L 98-108 CO2 TOTAL (test code = 2674458861) 21 mmol/L 23-31 L AGAP (test code = 0519082150) 2-16 BUN (test code = 6433339304) 4 mg/dL 7-23 L GLUCOSE (test code = 9340181666) 93 mg/dL 70-110 CREATININE (test code = 5519418697) 0.49 mg/dL 0.5-1.04 L TOTAL BILI (test code = 8061501103) 0.2 mg/dL 0.1-1.1 CALCIUM (test code = 6055252833) 9.0 mg/dL 8.6-10.6 T PROTEIN (test code = 1491811295) 6.9 g/dL 6.3-8.2 ALBUMIN (test code = 2960952634) 3.7 g/dL 3.5-5 ALK PHOS (test code = 1416799332) 169 U/L 34-122 H ALTv (test code = 1742-6) 15 U/L 5-35 AST(SGOT) (test code = 3397059535) 23 U/L 13-40 eGFR (test code = 5588416232) mL/min/1.73m2 RUMA (test code = RUMA) Association [...] imaging tests). Lab Interpretation (test code = 57799-8) Abnormal [facility] CenterURIC [id number] 11:28:48* Test Item Value Reference Range Interpretation Comme nts URIC ACID (test code = 4555306103) 3.4 mg/dL 2.9-6 Lab Interpretation (test cod e = 53923-0) Normal [facility] CenterLACTATE [id number] 11:24:10* Test Item Value Reference Range Interpretation Comme nts LDH (test code = 0584981745) 216 U/L 120-246 Lab Interpretation (test cod e = 67125-1) Normal [facility] CenterType and Screen - ONCE [id number] 10:30:18 * Test Item Value Reference Range Interpretation Comme nts ABO & RH (test code = 20) O Positive Performed at [facility] Laboratory Services - [facility] Blood [address] [place], [place] [id number] Free: [phone] No. [id number] IAT (test code = 1185) Negative Performed at [facility] Laboratory Services [facility] Blood [address] [place], [place] [id number] Free: [phone] No. [id number] [facility] with Ismsuzvbvnbn8931-22-00 09:46:38* Test Item Value Reference Range Interpretation [...] 34.9 g/dL 31.6-35.1 RDW-SD (test code = 79591-8) 40.9 fL 39-49.9 RDW-CV (test code = 788-0) 12.2 % 12-15.5 PLT (test code = 777-3) See_Comment [Automated messa ge] The system which generated this result transmitted reference range: 166 - 358 10*3/?L. The reference range was not used to interpret this result as normal/abnormal. MPV (test code = 31951-1) 9.9 fL 9.5-12.9 NRBC/100 WBC (test code = 9254527954) See_Comment [Automated me ssage] The system which generated this result transmitted reference range: 0.0 - 10.0 /100 WBCs. The reference range was not used to interpret this result as normal/abnormal. NRBC x10^3 (test code = 8281482662) See_Comment [Automated messa ge] The system which generated this result transmitted reference range: 10*3/?L. The reference range was not used to interpret this result as normal/abnormal. GRAN MAT (NEUT) % (test code = 770-8) 70.4 % IMM GRAN % (test code = 0200485173) 0.70 % LYMPH % (test code = 736-9) 20.1 % MONO % (test code = 5905-5) 6.0 % EOS % (test code = 713-8) 2.5 % BASO % (test code = 706-2) 0.3 % GRAN MAT x10^3(ANC) (test code = 4179914374) 8.92 10*3/uL 1.88-7.09 H IMM GRAN x10^3 (test code = 5935515464) 0.09 10*3/uL 0-0.06 H LYMPH x10^3 (test code = 731-0) 2.55 10*3/uL 1.32-3.29 MONO x10^3 (test code = 742-7) 0.76 10*3/uL 0.33-0.92 EOS x10^3 (test code = 711-2) 0.32 10*3/uL 0.03-0.39 BASO x10^3 (test code = 704-7) 0.04 10*3/uL 0.01-0.07 Lab Interpretation (test code = 64025-1) Abnormal [facility] URINALYSIS W SPECIFIC [id number] 14:56:00* Test Item Value Reference Range Interpretation [...] POCT U APPEAR (test code = 3267) [facility] URINALYSIS W SPECIFIC [id number] 14:56:00* Test Item Value Reference Range Interpretation [...] POCT U APPEAR (test code = 3267) [facility] URINALYSIS W SPECIFIC [id number] 14:58:00* Test Item Value Reference Range Interpretation [...] POCT U APPEAR (test code = 3267) [facility] URINALYSIS W SPECIFIC [id number] 14:58:00* Test Item Value Reference Range Interpretation [...] POCT U APPEAR (test code = 3267) [facility] URINALYSIS W SPECIFIC [id number] 14:58:00* Test Item Value Reference Range Interpretation [...] POCT U APPEAR (test code = 3267) [facility] URINALYSIS W SPECIFIC [id number] 14:58:00* Test Item Value Reference Range Interpretation [...] POCT U APPEAR (test code = 3267) [facility] URINALYSIS W SPECIFIC [id number] 14:58:00* Test Item Value Reference Range Interpretation [...] POCT U APPEAR (test code = 3267) [facility] URINALYSIS W SPECIFIC [id number] 18:21:00* Test Item Value Reference Range Interpretation [...] POCT U APPEAR (test code = 3267) [facility] History and Physical Notes Date/Time Note Provider Source 2024-01-29 09:03:32 Patient seen and examined in the preop/DSU area. No changes in history and physical from our note below. -OR today for laparoscopic cholecystectomy -NPO past midnight -Surgical consent signed Kiko Belcher MD 01/29/2024 9:03 AM PGY4, General Surgery SHER POLISHER Associated attestation - Eva Bryan MD - 01/29/2024 10:25 AM FINISHER POLISHER Attending Attestation: I personally evaluated and examined [...] Eva Bryan MD - 01/07/2024 11:15 AM FINISHER POLISHER Images from the original note were not included. GENERAL SURGERY CLINIC NOTE Reason for Visit / Chief Complaint: Abdominal pain, gallstones History of Present Illness: Lanre Bales is a 28 year old female with PMHx as below who presents for evaluation of abdominal pain and gallstones. She was seen at [facility] ED in 11/08/2023 for vomiting. Work [...] with nausea and vomiting and presented to [facility] on 01/01/2024. An US was obtained which [...] lives with mother and child, FOB involved. Voodoo preference: Islam. Has one cat, educated about diego litter [...] min Stress: No Stress Concern Present (12/19/2022) [place] [employer] Occupational [employer] - Occupational Stress Questionnaire Feeling of Stress : Not at all Social Connections: Moderately Integrated (12/19/2022) Social Connection and Isolation Panel [NHANES] Frequency of Communication with Friends and Family: More than three times a week Frequency of Social Gatherings with Friends and Family: Twice a week Attends Voodoo Services: 1 to 4 times per year [...] othopnea, claudication, edema, coronary artery disease/history of [place] Respiratory: Cough, sputum production, hemoptysis, wheezing, shortness [...] consent obtained. Eva Bryan M.D. 01/07/2024 14:58 Healthcare
[2024-02-28] MEDS ORDERED: FAMOTIDINE 20 MG/2 ML VIAL IV ONE (11:13)
[2024-02-28] MEDS ORDERED: ONDANSETRON 4 MG/2 ML VIAL ONE (11:13)
[2024-02-28] MEDS ORDERED: NA CHLORIDE 0.9% 0 ML ONE (11:13)
[2024-02-28] MEDS ORDERED: PROMETHAZINE INJ 25 MG/ML AMP ONE ×3 (12:44→15:00)
[2024-02-28] MEDS ORDERED: MORPHINE 4 MG/ML SYR ONE ×3 (12:53→15:01)
[2024-02-28 13:27] LABS: Albumin 3.3 g/dL (3.4-5.0); Albumin/Globulin Ratio 0.9 (1.1-1.8); Anion Gap 8.2 mEq/L (5.0-15.0); Bilirubin Total 0.4 mg/dL (0.2-1.0); Globulin 3.6 g/dL (2.3-3.5); Potassium 3.2 mEq/L (3.5-5.1); Protein, Total 6.9 g/dL (6.4-8.2)
[2024-02-28 13:47] LABS: Absolute Monocytes 0.4 K/uL (0.1-1.3); Absolute Neutrophil 7.8 K/uL (1.8-8.0); Basophils % 0.3 % (0-1.3); Eosinophils % 0.5 % (0-4.4); Hemoglobin 13.7 g/dL (12.0-15.0); Lymphocytes % 10.7 % (15.3-44.8); MCH 34.8 pg (27.0-35.0); MCHC 34.2 g/dL (32.0-36.0); MCV 101.7 fL (80-100); Monocytes % 4.7 % (3.3-12.3); Neutrophils % 83.8 % (41.7-73.7); Nucleated Red Blood Cells % 0.3 % (0-0); Platelets 328 thou/uL (152-406); RBC Red Blood Cell Count 3.94 M/uL (3.86-4.86); Red Cell Distribution Width 14.1 % (12.1-15.2)
--- NOTE | 2024-02-28 14:44 | RAD REPORT ---
EXAMINATION: CT ABDOMEN AND PELVIS WITHOUT CONTRAST CLINICAL INDICATION: Abd pain;Nausea / vomiting TECHNIQUE: CT abdomen and pelvis was performed, without IV contrast, as per department protocol. Axia l, sagittal and coronal reconstructions were obtained. One or more of the following dose reduction techniques were used: Automated exposure control, adjustment of the mA and kV according to the patien t size, and iterative reconstruction. Unless otherwise specified, incidental findings do not require dedicated imaging follow-up. COMPARISON: 02/11/2024 FINDINGS: The lack of intravenous contrast limits the sensitivity of this exam for evaluation of solid visceral organs, vascular structures, and retroperitoneum. LOWER CHEST: The visualized lung bases are clear. LIVER:Normal in size and contour. No focal lesion. Cholecystectomy clips. SPLEEN: Normal size. No focal lesion. PANCREAS: No mass, ductal dilation, or cuate-pancreatic fluid. ADRENALS: Normal; no mass. KIDNEYS AND URETERS: Normal size and contour. No hydronephrosis. URINARY BLADDER: Normal contour. GASTROINTESTINAL TRACT: No evidence of bowel obstruction, significant free fluid, free air or abscess . Moderate stool is retained throughout the colon. APPENDIX: Normal appendix. LYMPH NODES: No lymphadenopathy. MUSCULOSKELETAL: Mild lower lumbar spondylosis. ADDITIONAL FINDINGS: None. IMPRESSION: No acute or concerning abnormalities in the abdomen or pelvis, with evaluation limited by lack of IV contrast.
--- NOTE | 2024-02-28 15:27 | EDPHYS ---
Physician Documentation [facility] Name: Robin Bernard Age: 28 yrs Sex: Female : 1995 Arrival Date: 02/28/2024 Time: 10:35 Bed 19 Private MD: ED Physician Robert Wolf HPI: 02/27 12:50 This 28 yrs old Black Female presents to ER via Ambulatory with complaints of Abdominal rn Pain, Nausea/Vomiting/Diarrhea. 12:50 The patient presents to the emergency department with nausea, vomiting, diarrhea, rn abdominal pain. 12:50 Onset: The symptoms/episode began/occurred 3 day(s) ago. Possible causes: unknown. The rn symptoms are aggravated by nothing. The symptoms are alleviated by nothing. Associated signs and symptoms: Pertinent positives: abdominal pain, diarrhea, nausea, vomiting. Severity of symptoms: At their worst the symptoms were mild. The patient has experienced similar episodes in the past. The patient has experienced similar episodes in the past, and the symptoms today are exactly the same. The patient has not recently seen a physician. 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 - Infectious Disease History:: Denies. - Social history:: Smoking status: Patient denies any tobacco usage or history of. - Family history:: not pertinent. - Hospitalizations: : No recent hospitalization is reported. ROS: 12:50 Constitutional: Negative for fever, chills, and weight loss, Cardiovascular: Negative rn for chest pain, palpitations, and edema, Respiratory: Negative for shortness of breath, cough, wheezing, and pleuritic chest pain, Abdomen/GI: Negative for constipation, Neuro: Negative for headache, weakness, numbness, tingling, and seizure, Exam: 12:50 Constitutional: This is a well developed, well nourished patient who is awake, alert, rn and in no acute distress. Cardiovascular: Tachycardic, regular. Respiratory: No increased work of breathing, no retractions or nasal flaring. Abdomen/GI: Soft, mild epigastric tenderness. No rebound or guarding MS/ Extremity: Pulses equal, no cyanosis. Neuro: Awake and alert, GCS 15 Vital Signs: 11:00 Pulse 102; Resp 16; Temp 97.6(TE); Pulse Ox 100% on R/A; Weight 108.86 kg; Height 5 ft. ss 5 in. ; Pain 10/10; 11:01 BP 140 / 59; ss 15:14 BP 137 / 62; Pulse 92; Resp 17; Pulse Ox 99% ; ko1 11:00 Body Mass Index 39.94 (108.86 kg, 165.1 cm) ss 11:00 Pain Scale: Adult ss MDM: 10:38 Medical Screening Exam initiated rn 14:43 ED course: No acute abnormalities in blood work. Patient updated. Still having rn discomfort so placed new orders for her medication and awaiting CT results.. 15:21 Differential diagnosis: Nonspecific abd pain, gastritis, pancreatitis, viral rn gastroenteritis, gastroenteritis, Gastritis, gastroparesis, GERD. Data reviewed: vital signs, nurses notes, lab test result(s), radiologic studies, CT scan, and as a result, I will discharge patient. Counseling: I had a detailed discussion with the patient and/or guardian regarding the historical points, exam findings, and any diagnostic results supporting the discharge/admit diagnosis, lab results, radiology results, the need for outpatient follow up, to return to the emergency department if symptoms worsen or persist or if there are any questions or concerns that arise at home. Special discussion: Based on the patient's Hx, exam, and Dx evaluation, there is no indication for emergent surgery or inpatient Tx. It is understood by the patient/guardian that if the Sx's persist or worsen they need to return immediately for re-evaluation. I discussed with the patient/guardian in detail that at this point there is no indication for admission to the hospital. It is understood, however, that if the symptoms persist or worsen the patient needs to return immediately for re-evaluation. Based on the history and exam findings, there is no indication for further emergent testing or inpatient evaluation. I discussed with the patient/guardian the need to see the caregiver services home for further evaluation of the symptoms. ED course: Patient improved after medication, no acute findings on blood or CT. Patient feels much better and sleeping comfortably.. 02/27 10:51 Order name: CBC with Diff; Complete Time: 14:10 rn 02/27 10:51 Order name: CMP; Complete Time: 13:33 rn 02/27 10:51 Order name: Lipase; Complete Time: 13:33 rn 02/27 13:34 Order name: CT Abd/Pelvis - Without Contrast; Complete Time: 14:44 rn 02/27 10:51 Order name: Labs collected and sent; Complete Time: 13:11 rn Administered Medications: 12:48 Drug: Promethazine IM 12.5 mg IM once Route: IM; Site: right gluteus; ko1 13:18 Follow up: Response: No adverse reaction ko1 13:06 Drug: morphine IM 4 mg IM once Route: IM; Site: right deltoid; ko1 13:36 Follow up: Response: No adverse reaction ko1 15:07 Drug: morphine IM 4 mg IM once Route: IM; Site: left deltoid; ap3 15:35 Follow up: Response: No adverse reaction ko1 15:07 Drug: Promethazine IM 12.5 mg IM once Route: IM; Site: left gluteus; ap3 15:35 Follow up: Response: No adverse reaction ko1 15:15 Not Given (Other Intervention Used): nolqrmgxnk99 mg IVP once; dilute with 10 mL 0.9% ko1 NaCl; give over 2 minutes 15:16 Not Given (Other Intervention Used): ondansetron 4 mg IVP once; over 2 minutes ko1 15:16 Not Given (Physician Discretion): ns 0.9% 1000 ml IV at 1 bolus Per protocol; to be ko1 given as a bolus over 60 minutes Disposition Summary: 02/28/24 15:26 Discharge Ordered Notes: Location: Home rn Problem: chronic rn Symptoms: have improved rn Condition: Stable rn Diagnosis - Acute gastritis without bleeding rn Followup: rn - With: Private Physician - When: As needed - Reason: Recheck today's complaints, Re-evaluation by your physician Discharge Instructions: - Discharge Summary Sheet rn - Gastritis, Adult rn Forms: - Medication Reconciliation Form rn - Antibiotic hemodialysis rn - Prescription Opioid Use rn - Patient Portal Instructions rn - Leadership Thank You Letter rn Prescriptions: - ondansetron 4 mg Oral Tablet,disintegrating - take 1 tablet ORAL route every 8 hours As needed; 12 tablet; Refills: 0, rn Product Selection Permitted - Tramadol 50 mg Oral Tablet - take 1 tablet ORAL route every 8 hours as needed; 12 tablet; Refills: 0, rn Product Selection Permitted Signatures: Dispatcher [employer] EDMS Robert Wolf MD MD rn Blanchard, Shelby, RN RN Sabi Bhakta RN RN ap3 Denisa Ruiz RN RN ko1 Corrections: (The following items were deleted from the chart) 10:51 10:51 CBC+H.LAB.BRZ ordered. EDMS EDMS 10:51 10:51 COMPREHENSIVE METABOLIC PANEL+C.LAB.BRZ ordered. EDMS EDMS 10:51 10:51 LIPASE+C.LAB.BRZ ordered. EDMS EDMS 13:33 12:50 Constitutional: This is a well developed, well nourished patient who is awake, rn alert, and in no acute distress. rn 13:34 13:34 Abdomen Pelvis Wo Con+CT.RAD.BRZ ordered. EDMS EDMS
--- NOTE | 2024-02-28 15:27 | ER ---
Nurse's Notes [facility] [place] Name: Robin Bernard Age: 28 yrs Sex: Female : 1995 Arrival Date: 02/28/2024 Time: 10:35 Bed 19 Private MD: Diagnosis: Acute gastritis without bleeding Presentation: 02/27 10:48 Chief complaint: Patient states: N/V and abd pain that began 2-3 days ago. Coronavirus ss screen: Client denies travel out of the [place] in the last 14 days. Ebola Screen: Patient denies exposure to infectious person. Patient denies travel to an Ebola-affected area in the 21 days before illness onset. Initial Sepsis Screen: Does the patient meet any 2 criteria? No. Patient's initial sepsis screen is negative. Does the patient have a suspected source of infection? No. Patient's initial sepsis screen is negative. Risk Assessment: Do you want to hurt yourself or someone else? Patient reports no desire to harm self or others. Onset of symptoms was February 2024. 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 - Infectious Disease History:: Denies. - Social history:: Smoking status: Patient denies any tobacco usage or history of. - Family history:: not pertinent. - Hospitalizations: : No recent hospitalization is reported. Screenin:26 [facility] ED Fall Risk Assessment (Adult) History of falling in the last 3 months, ko1 including since admission No falls in past 3 months (0 pts) Confusion or Disorientation No (0 pts) Intoxicated or Sedated No (0 pts) Impaired Gait No (0 pts) Mobility Assist Device Used No (0 pt) Altered Elimination No (0 pt) Score/Fall Risk Level 0 - 2 = Low Risk Oriented to surroundings, Maintained a safe environment, Educated pt \T\ family on fall prevention, incl call for assistance when getting out of bed, Assessed \T\ reinforced patient's understanding of fall precautions, Hourly rounding (assess needs \T\ fall precautionary measures) done. Abuse screen: Denies threats or abuse. Denies injuries from another. Nutritional screening: No deficits noted. Tuberculosis screening: No symptoms or risk factors identified. Assessment: 11:26 General: Appears uncomfortable, obese, Behavior is appropriate for age, flat. Pain: ko1 Complains of pain in abdomen. Neuro: No deficits noted. Cardiovascular: No deficits noted. Respiratory: No deficits noted. GI: Bowel sounds present X 4 quads. Abd is soft X 4 quads. : No deficits noted. No signs and/or symptoms were reported regarding the genitourinary system. EENT: No deficits noted. No signs and/or symptoms were reported regarding the EENT system. Derm: No deficits noted. No signs and/or symptoms reported regarding the dermatologic system. Musculoskeletal: No deficits noted. No signs and/or symptoms reported regarding the musculoskeletal system. 12:16 Reassessment: labs delayed due to difficult IV access. ko1 13:45 Reassessment: Luis Alfredo Corral looked for IV site with ultrasound with no success, informed ko1 MD, alternative medications ordered and lab notified to assist with lab draw. Vital Signs: 11:00 Pulse 102; Resp 16; Temp 97.6(TE); Pulse Ox 100% on R/A; Weight 108.86 kg; Height 5 ft. ss 5 in. ; Pain 10/10; 11:01 BP 140 / 59; ss 15:14 BP 137 / 62; Pulse 92; Resp 17; Pulse Ox 99% ; ko1 11:00 Body Mass Index 39.94 (108.86 kg, 165.1 cm) ss 11:00 Pain Scale: Adult ss ED Course: 10:38 Patient arrived in ED. sj2 10:38 Robert Wolf MD is Attending Physician. rn 10:48 Triage completed. ss 10:48 Arm band placed on right wrist. ss 11:04 Denisa Ruiz, COLE is Primary Nurse. ko1 11:26 Patient has correct armband on for positive identification. Allergy band placed. Bed in ko1 low position. Call light in reach. Side rails up X 1. 11:26 Provided Education on: labs. Pulse ox on. NIBP on. Door closed. Noise minimized. Lights ko1 dimmed. Warm blanket given. Pillow given. 11:41 Missed attempt(s): 20 gauge Bleeding controlled, band aid applied, catheter tip intact. nh2 11:50 Missed attempt(s): 20 gauge Bleeding controlled, band aid applied, catheter tip intact. ko1 13:45 No provider procedures requiring assistance completed. Patient did not have IV access ko1 during this emergency room visit. 14:08 CT Abd/Pelvis - Without Contrast In Process Unspecified. EDMS Administered Medications: 12:48 Drug: Promethazine IM 12.5 mg IM once Route: IM; Site: right gluteus; ko1 13:18 Follow up: Response: No adverse reaction ko1 13:06 Drug: morphine IM 4 mg IM once Route: IM; Site: right deltoid; ko1 13:36 Follow up: Response: No adverse reaction ko1 15:07 Drug: morphine IM 4 mg IM once Route: IM; Site: left deltoid; ap3 15:35 Follow up: Response: No adverse reaction ko1 15:07 Drug: Promethazine IM 12.5 mg IM once Route: IM; Site: left gluteus; ap3 15:35 Follow up: Response: No adverse reaction ko1 15:15 Not Given (Other Intervention Used): [id number] mg IVP once; dilute with 10 mL 0.9% ko1 NaCl; give over 2 minutes 15:16 Not Given (Other Intervention Used): ondansetron 4 mg IVP once; over 2 minutes ko1 15:16 Not Given (Physician Discretion): ns 0.9% 1000 ml IV at 1 bolus Per protocol; to be ko1 given as a bolus over 60 minutes Medication: 11:26 VIS not applicable for this client. ko1 Outcome: 15:26 Discharge ordered by . rn 15:34 Discharged to home ambulatory, ko1 15:34 Condition: stable 15:34 Discharge instructions given to patient, Instructed on discharge instructions, follow up and referral plans. medication usage, Demonstrated understanding of instructions, follow-up care, medications, Prescriptions given X 2, 16:09 Patient left the ED. ko1 Signatures: Dispatcher [employer] EDMS Robert Wolf MD MD rn Blanchard, Shelby, RN RN ss Prokisch, Amanda, RN RN ap3 Denisa Ruiz RN RN ko1 Robetr Quezada, Omar Alvarado [facility]
[2024-02-28 16:33] VITALS: TEMP 97.6
[2024-02-28 16:35] VITALS: BP 137/62; O2SAT 99
== END 2024-02-28 16:09 | disposition home or self-care (01) ==
LOC: ER 10:35
DX: K29.00 Acute gastritis without bleeding (principal); Z28.310 Unvaccinated for COVID-19
CPT/HCPCS: 85025; 36415; 83690; 80053; 74176; 96372; 99284; J2550 ×3; J2405; J7030

== ENCOUNTER 2024-03-14 05:18 | Emergency (ER) | payer OTHER ==
--- OUTSIDE RECORDS SUMMARY | 2024-03-14 05:25 | XMS REPORT | Continuity of Care Document ---
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 Name Role Phone JESS MUNSON Primary Care Physician JESS Palomares Attending Clinician Unavailab JESS Salguero Attending Clinician Unavailab Jess Salguero MD Attending Clinician [phone] EVA BRYAN Attending Clinician Unavailable VANESSA LEYVA Attending Clinician Unavailable VANESSA LEYVA Attending Clinician Unavailable SHORTY ZAMBRANO Attending Clinician Unavailable SHORTY ZAMBRANO Attending Clinician Unavailable Shorty Draper Attending Clinician [phone] Eva Bryan MD Attending Clinician [phone] TIANNA MEI Attending Clinician Unavailable TIANNA MEI Attending Clinician Unavailable CARO BAUER Attending Clinician Unavailable CARO BAUER Attending Clinician Unavailable Caro Bauer MD Attending Clinician [phone] Yann Ordonez Attending Clinician +[phone] Yisel Hart MD Attending Clinician [phone] YISEL HART Attending Clinician Unavailable KONRAD ORDOÑEZ Attending Clinician Unavailab KONRAD Holguin Attending Clinician Unavailab merly Ordoñez STRATEGIC PARTNERSHIP SPECIALIST, Konrad Attending Clinician [phone] Tianna Young Attending Clinician [phone] JASPALISAAC Attending Clinician Unavailable Vanessa Leyva MD Attending Clinician [phone] Jose De Jesus Medina MD Attending Clinician [phone] JOSE DE JESUS MEDINA Attending Clinician Unavailable JOSE DE JESUS MEDINA Attending Clinician Unavailable 2, [facility] Attending Clinician Unavailable KELLY SIMMS Attending Clinician UnavailKELLY Ferrera Attending Clinician Unavailelliott Simms MD, Kelly Tolentino Attending Clinician [phone] TIFF ISABEL Attending Clinician Unavailable TIFF ISABEL Attending Clinician Unavailable Maame STRATEGIC PARTNERSHIP SPECIALIST, Tiff Attending Clinician [phone], [facility] Attending Clinician Unavailable BONITA TRIVEDI Attending Clinician Unavailab Bonita Hernandez DO Attending Clinician + [phone] Carlos Ibrahim MD Attending Clinician [phone] Doctor Unassigned, Elsa Attending Clinician U NICOLE Aparicio Attending Clinician UnavailNICOLE Sellers Attending Clinician UnavailKAMILA Deal Attending Clinician Unavailable JACINTA VOSS Attending Clinician Unavaila susu Provider, [facility] Temp Attending Clinician Henrietta vailable Meche Richard Attending Clinician + Jacinta Voss CNM Attending Clinician [phone] MECHE ROBERSON Attending Clinician Unavail able Rodrick Carlisle Attending Clinician Unava ilDREW Singh Attending Clinician Unavailable RODRICK PETE Attending Clinician Unavailab Wilver Weinstein MD Attending Clinician + [phone] LOVE DOWELL Attending Clinician UnavailLOVE Gonzalez Attending Clinician UnavailBRENDA Pedro Attending Clinician Unavailable Brenda Velásquez MD Attending Clinician [phone] Richard HALLIE, Fernando Isabel Attending Clinician [phone] Ultrasound, GiovannaMfm Attending Clinician UnavailVinh Wong MD Attending Clinician [phone] VINH MONCADA Attending Clinician Unavailable VINH MONCADA Attending Clinician Unavailable Juan GUEVARAPIvanna Attending Clinician [phone] Maddie Romeo MD Attending Clinician [phone] MADDIE ROMEO Attending Clinician Unavailable Lab, [facility] Attending Clinician Unavailable Alayna Pyle S Attending Clinician [phone] ANGUS DWYER Attending Clinician Unavailable Angus Dwyer DO Attending Clinician +[phone] Abdullahi Gomez MD Attending Clinician [phone] Foreign Calvillo Attending Clinician +[phone] Edith Terry MD Attending Clinician +[phone] EDITH TERRY Attending Clinician Unavailable EDITH TERRY Attending Clinician Unavailable SHORTY ZAMBRANO Admitting Clinician Unavailable EVA BRYAN Admitting Clinician Unavailable Eva Bryan MD Admitting Clinician [phone] YISEL HART Admitting Clinician Unavailable Yisel Hart MD Admitting Clinician [phone] KELLY SIMMS Admitting Clinician UnavailVANESSA Garza Admitting Clinician Unavailable Vanessa Leyva MD Admitting Clinician [phone] BRENDA VELÁSQUEZ Admitting Clinician Unavailable Brenda Velásquez MD Admitting Clinician +[phone] Edith Terry MD Admitting Clinician [phone] EDITH TERRY Admitting Clinician Unavailable Payers Payer Name Policy Type Policy Number Effective Date Expirati on Date Source [place] [facility] STAR [id number] 2021 00:00:00 [employer]AR [id number] 2021 00:00:00 Problems Condition Name Condition Details Condition Category Status Onset Date Resolution Date Last Treatment Date Treating Clinician Comments Source Dre Myerse r sludge Disease Active 2023-02 1-23 00:00: 00 [facility] Hematemesi s with nausea Hematemesi s with nausea Disease Active 2023-02 0-03 00:00: 00 [facility] Coffee ground emesis Coffee ground emesis Disease Active 2023-02 0-03 00:00: 00 [facility] Abdominal pain, epigastric Abdominal pain, epigastric Disease Active 2023-02 0-03 00:00: 00 [facility] Papanicola ou smear of cervix with low grade squamous intraepith elial lesion (LGSIL) Papanicola ou smear of cervix with low grade squamous intraepith elial lesion (LGSIL) Disease Active 518 00:00: 00 Overview: Formattin g of this note might be different from the original. LGSIL in 2021 needs repeat pap smear in 2022. 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 Disease Active 4-12 00:00: 00 [facility] Tetrahydro cannabinol (THC) use disorder, mild, abuse Tetrahydro cannabinol (THC) use disorder, mild, abuse Disease Resolve d 5-10 00:00: 00 2022-12-25 00:00:00 2022-12-25 13:59:24 [facility] Chronic hypertensi on with superimpos ed preeclamps ia Chronic hypertensi on with superimpos ed preeclamps ia Disease Resolve d 2021-02 0-08 00:00: 00 2022-01-20 00:00:00 2022-01-20 14:17:40 [facility] Supervisio n of high risk , antepartum Supervisio n of high risk , antepartum Disease Resolve d 2021-0 5-05 00:00: 00 2022-01-20 00:00:00 2022-01-20 14:17:35 [facility] GBS (group B Streptococ cus carrier), +RV culture, 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 Will need ABX in labor. [facility] Single liveborn, born in hospital, delivered by vaginal delivery Single liveborn, born in hospital, delivered by vaginal delivery Disease Resolve d 2021-02 0-09 00:00: 00 2021-12-22 00:00:00 2021-12-22 07:58:27 [facility] Morbid obesity with body mass index of 40.0-49.9 Morbid obesity with body mass index of 40.0-49.9 Disease Resolve d 2021-02 0-08 00:00: 00 2021-12-22 00:00:00 2021-12-22 15:59:51 [facility] Severe pre-eclamp shena in third trimester Severe pre-eclamp shena in third trimester Disease Resolve d 2021-02 0-08 00:00: 00 2021-12-22 00:00:00 2021-12-22 07:58:22 [facility] Elevated blood pressure reading without diagnosis of hypertensi on Elevated blood pressure reading without diagnosis of hypertensi on Disease Resolve d 9-08 00:00: 00 2021-12-22 00:00:00 2021-12-22 07:58:07 [facility] Proteinuri a affecting in third trimester Proteinuri a affecting in third trimester Disease Resolve d 9-08 00:00: 00 2021-12-22 00:00:00 2021-12-22 07:58:17 [facility] Intractabl e nausea and vomiting Intractabl e nausea and vomiting Disease Resolve d 2021-0 7-05 00:00: 00 2021-12-22 00:00:00 2021-12-22 07:58:09 [facility] Urinary tract infection without hematuria, site unspecifie d Urinary tract infection without hematuria, site unspecifie d Disease Resolve d 2021-0 6-02 00:00: 00 2021-12-22 00:00:00 2021-12-22 07:57:57 [facility] Nausea and vomiting during Nausea and vomiting during Disease Resolve d 2021-0 5-10 00:00: 00 2021-12-22 00:00:00 2021-12-22 07:58:11 [facility] Nausea and vomiting during Nausea and vomiting during Disease Resolve d 2021-0 5-10 00:00: 00 2021-12-22 00:00:00 2021-12-22 07:58:11 [facility] Primigravi da in second trimester Primigravi da in second trimester Disease Resolve d 2021-0 5-05 00:00: 00 2021-12-22 00:00:00 2021-12-22 07:58:15 [facility] Obesity in Obesity in Disease Resolve d 2021-0 5-05 00:00: 00 2021-12-22 00:00:00 2021-12-22 07:58:13 [facility] Chronic hypertensi on affecting Chronic hypertensi on affecting Disease Resolve d 2021-0 4-24 00:00: 00 2021-12-22 00:00:00 2021-12-22 07:58:04 [facility] BMI 40.0-44.9, adult BMI 40.0-44.9, adult Disease Resolve d 2021-0 4-23 00:00: 00 2021-12-22 00:00:00 2021-12-22 15:59:13 [facility] 15 weeks gestation of 15 weeks gestation of Disease Resolve d 2021-0 4-12 00:00: 00 2021-12-22 00:00:00 2021-12-22 07:58:01 [facility] Hyperemesi s Hyperemesi s Disease Resolve d 2021-0 5-10 00:00: 00 2021-11-26 00:00:00 2021-11-26 09:09:11 [facility] Hyperbilir ubinemia Hyperbilir ubinemia Disease Resolve d 2021-0 4-25 00:00: 00 2021-11-26 00:00:00 2021-11-26 09:09:06 [facility] Hypomagnes emia Hypomagnes emia Disease Resolve d 2021-0 4-25 00:00: 00 2021-11-26 00:00:00 2021-11-26 09:09:05 [facility] Hypocalcem ia Hypocalcem ia Disease Resolve d 2021-0 4-25 00:00: 00 2021-11-26 00:00:00 2021-11-26 09:09:03 [facility] Hypokalemi a Hypokalemi a Disease Resolve d 2021-0 4-12 00:00: 00 2021-11-26 00:00:00 2021-11-26 09:09:30 [facility] Hyponatrem ia Hyponatrem ia Disease Resolve d 2021-0 4-12 00:00: 00 2021-11-26 00:00:00 2021-11-26 09:09:33 [facility] Tachycardi a Tachycardi a Disease Resolve d 2021-0 4-12 00:00: 00 2021-11-26 00:00:00 2021-11-26 09:09:30 [facility] Nausea and vomiting in prior to 22 weeks gestation Nausea and vomiting in prior to 22 weeks gestation Disease Resolve d 2021-0 4-12 00:00: 00 2021-11-26 00:00:00 2021-11-26 09:09:43 [facility] Nausea and vomiting in prior to 22 weeks gestation Nausea and vomiting in prior to 22 weeks gestation Disease Resolve d 2021-0 4-12 00:00: 00 2021-11-26 00:00:00 2021-11-26 09:09:43 [facility] Allergies, Adverse Reactions, Alerts Allergy Name Allergy Type Status Severity Reaction(s) Onset Date Inactive Date Treating Clinician Comments Source Egg Propensi ty to adverse reaction s Active Nausea and/or Vomiting 06-29 00:00: 00 [facility] EGG DRUG INGREDI Active N/V 06-29 00:00: 00 [facility] Metoclop ramide Drug Allergy Active Extra pyramidal effects 05-31 00:00: 00 [facility] METOCLOP RAMIDE DRUG INGREDI Active Med EP Effects 05-31 00:00: 00 [facility] Social History Social Habit Start Date Stop Date Quantity Comments Source ASSERTION 2021-03-26 00:00:00 [facility] use Current smoker [facility] Alcoholic beverage intake 2024-02-27 00:00:00 2024-02-27 00:00:00 Current drinker of alcohol (finding) [facility] Alcohol Comment 2023-11-26 00:00:00 2023-11-26 00:00:[address] [facility] Tobacco use and exposure 2023-11-26 00:00:00 2023-11-26 00:00:00 Smokeless tobacco non-user [facility] History of Social function 2023-11-22 00:00:00 2023-11-22 00:00:00 [facility] Alcohol intake 2023-06-21 00:00:00 2023-06-21 00:00:00 Ex-drinker (finding) [facility] Exposure to SARS-CoV-2 (event) 2022-01-10 00:00:00 2022-01-20 14:04:[address] [facility] Tobacco Comment 2021-09-15 00:00:00 2021-09-15 00:00:00 marijuana,no nicotine stopped for [facility] Sex assigned at 1995 00:00:00 1995 00:00:00 [facility] Smoking Status Start Date Stop Date Source Ex-smoker 2023-11-26 00:00:00 2023-11-26 00:00:[address] [facility] Medications Ordered Medication Name Filled Medication Name Start Date Stop Date Current Medication? Ordering Clinician Indication Dosage Frequency Signature (SIG) Comments Components Source tirzepatide 2.5 mg/0.5 mL subcutaneou s injection pen 03-05 00:00: 00 Yes [id number] 104 2.5mg inject 2.5 mg under the skin weekly. Start 2.5mg qWeek x 4 Weeks, then increase to 5mg qWeek x 4 Weeks, then increase to 7.5mg qWeek x 4 Weeks, the increase to 10mg qWeek. [facility] tirzepatide , weight loss, 5 mg/0.5 mL subcutaneou s injection 03-05 00:00: 00 Yes [id number] 104 After 2.5mg qWeek x 4 Weeks, then increase to 5mg qWeek [facility] phentermine -topiramate 3.75-23 mg per capsule 03-05 00:00: 00 03-13 05:59 :00 Yes [id number] 104 1{capsu le} Take 1 capsule by mouth in the morning for 7 days. [facility] zolpidem 5 mg tablet 02-26 00:00: 00 Yes [id number] 5mg Take 1 tablet by mouth at bedtime as needed for Insomnia. [facility] phentermine -topiramate (QSYMIA) 3.75-23 mg per capsule 02-26 00:00: 00 03-05 00:00 :00 No [id number] 104 1{capsu le} Take 1 capsule by mouth in the morning. [facility] ondansetron (ZOFRAN-ODT ) disintegrat ing tablet 4 mg 02-21 09:45: 00 02-21 08:46 :00 No 4mg 4 mg, Oral, ONCE, 1 dose, On Sun02/22/24 at 0345, RACHAEL [facility] cefTRIAXone (ROCEPHIN) 1,000 mg in water for injection, sterile 10 mL IV Push 02-21 08:30: 00 02-21 08:31 :00 No 1000mg 1,000 mg, Intravenou s, ONCE, 1 dose, On Sun02/22/24 at 0230, 10 mL, Reason for Anti-Infec tive: Empiric Therapy for Suspected Infection, Empiric Therapy Site: Urine, Duration of therapy: Once (ED) [facility] iopamidol (ISOVUE 370-500 mL) injection 80 mL 02-21 08:30: 00 02-21 08:30 :00 No [id number] 80mL 80 mL, Intravenou s, ONCE, 1 dose, On Sun02/22/24 at 0230, Routine [facility] maalox/diph enhydrAMINE :lidocaine2 %viscous 1:1:1: suspension (COMPOUNDED ) 02-21 07:45: 00 02-21 07:36 :00 No 15mL 15 mL, Oral, ONCE, 1 dose, On Sun02/22/24 at 0145, RACHAEL [facility] NaCl 0.9% (NS) bolus infusion 1,000 mL 02-21 06:45: 00 02-21 08:11 :00 No 1000mL at 999 mL/hr, 1,000 mL, IV Infusion, ONCE, 1 dose, On Sun02/22/24 at 0045, RACHAEL [facility] morpHINE (4 mg/mL) injection 4 mg 02-21 06:00: 00 02-21 06:13 :00 No 4mg 4 mg, Slow IV Push, ONCE, 1 dose, On Sun02/22/24 at 0000, STAT [facility] ondansetron (ZOFRAN (PF)) injection 8 mg 02-21 06:00: 00 02-21 06:17 :00 No 8mg 8 mg, Slow IV Push, ONCE, 1 dose, On Sun02/22/24 at 0000, Administer over 2-5 Minutes, 4 mL [facility] cefdinir 300 mg capsule 2025-0 1-03 00:00: 00 03-01 05:59 :00 No [id number] 300mg Take 1 capsule by mouth every 12 (twelve) hours for 7 days. [facility] ondansetron 4 mg disintegrat ing tablet -03 00:00: 00 02-26 00:00 :00 No [id number] 4mg Take 1 tablet by mouth every 8 (eight) hours as needed for Nausea and Vomiting (N/V). [facility] acetaminoph en (TYLENOL EXTRA STRENGTH) 500 mg tablet 2023-02 00:00: 00 02-26 00:00 :00 No [id number] 1000mg Take 2 tablets by mouth every 8 (eight) hours for 15 days. [facility] ibuprofen 800 mg tablet 2023-02 00:00: 00 02-26 00:00 :00 No [id number] 800mg Take 1 tablet by mouth every 8 (eight) hours for 15 days. [facility] HYDROcodone -acetaminop hen (NORCO 5) tablet 1 tablet 2023-02 18:30: 00 01-28 19:00 :00 No 1{tbl} 1 tablet, Oral, ONCE, 1 dose, On Sun01/29/24 at 1230, Routine, PACU [facility] lactated ringers IV infusion 1,000 mL 2023-02 18:30: 00 01-28 22:20 :16 No 1000mL at 50 mL/hr, 1,000 mL, IV Infusion, CONTINUOUS , Starting on Sun01/29/24 at 1230, Until Sun01/29/24 at 1620, Routine, PACU [facility] HYDROmorphO ne (DILAUDID) injection 0.2 mg 2023-02 18:19: 17 01-28 22:20 :16 No .2mg 0.2 mg, Slow IV Push, Q5MIN PRN, 10 doses, Starting on Sun01/29/24 at 1219, Until Sun01/29/24 at 1620, Routine, Pain (scale 7-10), PACU, Is this medication approved by a Faculty level provider? Yes, [employer] team member approving Restricted medication : RADHA EVANS [facility] FENTanyl (PF) (SUBLIMAZE) injection 25 mcg 2023-02 18:19: 17 01-28 22:20 :16 No 25ug 25 mcg, Slow IV Push, Q5MIN PRN, 4 doses, Starting on Sun01/29/24 at 1219, Until Sun01/29/24 at 1620, Routine, Pain Scale 4-6, PACU [facility] ondansetron (ZOFRAN (PF)) injection 4 mg 2023-02 18:19: 17 01-28 22:20 :16 No 4mg 4 mg, Slow IV Push, PRN, 1 dose, Starting on Sun01/29/24 at 1219, Until Sun01/29/24 at 1620, Administer over 2-5 Minutes, 2 mL, PACU [facility] bupivacaine -epinephrin e-pf (SENSORCAIN E W/EPINEPHRI NE) 0.25 %-1:200,000 30 mL, lidocaine 1% (PF) (XYLOCAINE) 30 mL 2023-02 16:57: 00 01-28 18:29 :17 No PRN, Starting on Sun01/29/24 at 1057, Intra-op [facility] sodium chloride 0.9 % irrigation solution 2023-02 16:56: 00 01-28 18:29 :17 No PRN, Starting on Sun01/29/24 at 1056, Until Sun01/29/24 at 1229, Intra-op [facility] acetaminoph en (TYLENOL) 325 mg tablet 2023-02 00:00: 00 02-05 05:59 :00 Yes [id number] 650mg Take 2 tablets by mouth every 6 (six) hours for 7 days. [facility] ibuprofen 800 mg tablet 2023-02 00:00: 00 02-05 05:59 :00 Yes [id number] 800mg Take 1 tablet by mouth every 6 (six) hours for 7 days. [facility] traMADoL 50 mg tablet 2023-02 2-10 00:00: 00 02-05 05:59 :00 Yes [id number] 50mg Take 1 tablet by mouth every 8 (eight) hours for 7 days. Indication s: acute pain, chronic pain [facility] HYDROcodone -acetaminop hen 5-325 mg tablet 2023-02 2-10 00:00: 00 02-05 05:59 :00 Yes [id number] 1{tbl} Take 1 tablet by mouth every 6 (six) hours as needed for Pain (scale 7-10) for up to 7 days. Indication s: acute pain [facility] phentermine 37.5 mg tablet 2023-02 00:00: 00 02-26 00:00 :00 No [id number] 104 37.5mg Take 1 tablet by mouth daily with breakfast. [facility] zolpidem 5 mg tablet 2023-02 00:00: 00 02-26 00:00 :00 No [id number] 5mg Take 1 tablet by mouth at bedtime as needed for Insomnia. [facility] ondansetron 8 mg tablet 2023-02 00:00: 00 02-26 00:00 :00 No [id number] 8mg Take 1 tablet by mouth every 8 (eight) hours as needed for Nausea and Vomiting (N/V). [facility] ketorolac (TORADOL) injection 30 mg 2023-02 11:30: 00 01-11 10:39 :00 No 30mg 30 mg, Slow IV Push, ONCE, 1 dose, On 01/12/24 at 0530, Routine [facility] fentanyl PF (SUBLIMAZE (PF)) injection 50 mcg 2023-02 11:15: 00 01-11 11:15 :00 No 50ug 50 mcg, Slow IV Push, ONCE, 1 dose, On 01/12/24 at 0515, Routine [facility] ondansetron (ZOFRAN (PF)) injection 4 mg 2023-02 10:30: 00 01-11 10:29 :00 No 4mg 4 mg, Slow IV Push, ONCE, 1 dose, On 01/12/24 at 0430, Administer over 2-5 Minutes, 2 mL [facility] fentanyl PF (SUBLIMAZE (PF)) injection 50 mcg 2023-02 10:30: 00 01-11 10:40 :00 No 50ug 50 mcg, Slow IV Push, ONCE, 1 dose, On 01/12/24 at 0430, RACHAEL [facility] ondansetron (ZOFRAN (PF)) injection 4 mg 2023-02 10:15: 00 01-11 10:07 :00 No 4mg 4 mg, Slow IV Push, ONCE, 1 dose, On 01/12/24 at 0415, Administer over 2-5 Minutes, 2 mL [facility] traMADoL (ULTRAM) 50 mg tablet 2023-02 00:00: 00 02-26 00:00 :00 No [id number] 50mg Take 1 tablet by mouth every 6 (six) hours as needed for Pain (scale 7-10). Indication s: acute pain [facility] dicyclomine 20 mg tablet 2023-02 00:00: 00 02-26 00:00 :00 No [id number] 20mg Take 1 tablet by mouth every 6 (six) hours as needed for Abdominal pain. [facility] ondansetron (ZOFRAN) 4 mg tablet 2023-02 00:00: 00 01-27 00:00 :00 No [id number] 4mg Take 1 tablet by mouth every 8 (eight) hours as needed for Nausea and Vomiting (N/V). [facility] ondansetron 8 mg tablet 2023-02 00:00: 00 01-24 00:00 :00 No [id number] 8mg Take 1 tablet by mouth every 8 (eight) hours as needed for Nausea and Vomiting (N/V). [facility] ondansetron 4 mg disintegrat ing tablet 2023-02 00:00: 00 01-10 00:00 :00 No [id number] 4mg Take 1 tablet by mouth every 8 (eight) hours as needed for Nausea and Vomiting (N/V). [facility] phentermine 37.5 mg tablet 2023-02 00:00: 00 01-24 00:00 :00 No [id number] 104 37.5mg Take 1 tablet by mouth daily with breakfast. [facility] zolpidem 5 mg tablet 2023-02 00:00: 01-24 00:00 :00 No [id number] 5mg Take 1 tablet by mouth at bedtime as needed for Insomnia. [facility] ondansetron 4 mg disintegrat ing tablet 2023-02 00:00: 00 01-09 00:00 :00 No [id number] 4mg Take 1 tablet by mouth every 8 (eight) hours as needed for Nausea and Vomiting (N/V). [facility] ondansetron 4 mg tablet 2023-02 00:00: 00 01-10 00:00 :00 No [id number] 4mg Take 1 tablet by mouth every 8 (eight) hours as needed for Nausea and Vomiting (N/V). [facility] TRAZODONE 100 mg tablet 2023-02 00:00: 00 02-26 00:00 :00 No [id number] 100mg TAKE 1 TABLET BY MOUTH EVERYDAY AT BEDTIME [facility] pantoprazol e 40 mg EC tablet 11-18 00:00: 00 Yes [id number] 40mg Take 1 tablet by mouth in the morning. [facility] phentermine 37.5 mg tablet 11-18 00:00: 00 12-24 00:00 :00 No [id number] 104 37.5mg Take 1 tablet by mouth daily with breakfast. [facility] zolpidem 5 mg tablet 11-18 00:00: 00 12-24 00:00 :00 No [id number] 5mg Take 1 tablet by mouth at bedtime as needed for Insomnia. [facility] proMETHazin e (PHENERGAN) 12.5 mg in NS 50 mL IV piggyback (CNR) 11-17 15:30: 00 11-17 15:49 :00 No 12.5mg 12.5 mg, IV Piggyback, at 200 mL/hr Administer over 15 Minutes, ONCE, 1 dose, On Sun11/18/23 at 1030, [facility] morpHINE (4 mg/mL) injection 4 mg 11-17 15:30: 00 11-17 15:34 :00 No 4mg 4 mg, Slow IV Push, ONCE, 1 dose, On Sun11/18/23 at 1030, [facility] ketorolac (TORADOL) injection 30 mg 11-17 15:00: 00 11-17 14:09 :00 No 30mg 30 mg, Slow IV Push, ONCE, 1 dose, On Sun11/18/23 at 1000, [facility] famotidine (PEPCID (PF)) injection 20 mg 11-17 14:15: 00 11-17 14:09 :00 No 20mg 20 mg, Slow IV Push, ONCE, 1 dose, On Sun11/18/23 at 0915, [facility] iopamidol (ISOVUE 370-500 mL) injection 100 mL 11-17 13:30: 00 11-17 13:45 :00 No [id number] 100mL 100 mL, Intravenou s, ONCE, 1 dose, On Sun11/18/23 at 0845, Routine [facility] NaCl 0.9% (NS) IV infusion 1,000 mL 11-17 13:00: 00 11-17 15:15 :00 No 1000mL at 999 mL/hr, Intravenou s, ONCE, 1 dose, On Sun11/18/23 at 0800, [facility] proMETHazin e (PHENERGAN) 12.5 mg in NS 50 mL IV piggyback (CNR) 11-17 12:30: 00 11-17 13:33 :00 No 12.5mg 12.5 mg, IV Piggyback, at 200 mL/hr Administer over 15 Minutes, ONCE, 1 dose, On 11/18/23 at 0730, [facility] fentanyl PF (SUBLIMAZE (PF)) injection 100 mcg 11-17 11:15: 00 11-17 11:16 :00 No 100ug 100 mcg, Slow IV Push, ONCE, 1 dose, On Sun11/18/23 at 0615, Routine [facility] ondansetron (ZOFRAN (PF)) injection 8 mg 11-17 11:00: 00 11-17 11:10 :00 No 8mg 8 mg, Slow IV Push, ONCE, 1 dose, On [place] 11/18/23 at 0600, [facility] sodium chloride (NS) injection 5 mL 11-17 10:51: 45 Yes 5mL 5 mL, Intravenou s, PRN, Starting on Sun11/18/23 at 0551, Until Discontinu ed, Routine, IV line flushing [facility] proMETHazin e 25 mg tablet 11-17 00:00: 00 02-26 00:00 :00 No [id number] 25mg Take 1 tablet by mouth every 6 (six) hours as needed for Nausea and Vomiting (N/V). [facility] traMADoL 50 mg tablet 11-17 00:00: 00 01-28 00:00 :00 No [id number] 50mg Take 1 tablet by mouth every 6 (six) hours as needed (pain). Indication s: acute pain [facility] zolpidem 5 mg tablet 11-17 00:00: 00 11-17 00:00 :00 No [id number] 5mg Take 1 tablet by mouth at bedtime as needed for Insomnia. [facility] KCL (KLOR-CON M20) tablet 20 mEq 11-07 19:30: 00 11-07 19:56 :00 No 20meq 20 mEq, Oral, ONCE, 1 dose, On [place] 11/08/23 at 1430, [facility] proMETHazin e (PHENERGAN) 12.5 mg in NS 50 mL IV piggyback (CNR) 11-07 17:45: 00 11-07 18:53 :00 No 12.5mg 12.5 mg, IV Piggyback, at 200 mL/hr Administer over 15 Minutes, ONCE, 1 dose, On [place] 11/08/23 at 1245, [facility] ondansetron (ZOFRAN (PF)) injection 4 mg 11-07 16:30: 00 11-07 16:38 :00 No 4mg 4 mg, Slow IV Push, ONCE, 1 dose, On [place] 11/08/23 at 1130, [facility] famotidine (PEPCID (PF)) injection 20 mg 11-07 16:30: 00 11-07 16:38 :00 No 20mg 20 mg, Slow IV Push, ONCE, 1 dose, On [place] 11/08/23 at 1130, [facility] NaCl 0.9% (NS) bolus infusion 1,000 mL 11-07 16:30: 00 11-07 19:53 :00 No 1000mL at 999 mL/hr, 1,000 mL, IV Infusion, ONCE, 1 dose, On [place] 11/08/23 at 1130, [facility] morpHINE (4 mg/mL) injection 4 mg 11-07 15:45: 00 11-07 18:39 :00 No 4mg 4 mg, Slow IV Push, ONCE, 1 dose, On [place] 11/08/23 at 1045, [facility] ondansetron 4 mg disintegrat ing tablet 11-07 00:00: 00 11-12 04:59 :00 No [id number] 4mg Take 1 tablet by mouth every 8 (eight) hours as needed for Nausea and Vomiting (N/V) for up to 4 days. [facility] zolpidem 5 mg tablet 10-18 00:00: 00 11-15 00:00 :00 No [id number] 5mg Take 1 tablet by mouth at bedtime as needed for Insomnia. [facility] ergocalcife rol, vitamin d2, (VITAMIN D2) 1,250 mcg (50,000 unit) capsule 10-15 00:00: 00 Yes [id number] 58171B Take 1 capsule by mouth weekly. [facility] phentermine 37.5 mg tablet 10-15 00:00: 00 11-18 00:00 :00 No [id number] 37.5mg Take 1 tablet by mouth daily with breakfast. [facility] ergocalcife rol, vitamin d2, (VITAMIN D2) 1,250 mcg (50,000 unit) capsule 10-02 00:00: 00 10-14 00:00 :00 No [id number] 19580P Take 1 capsule by mouth weekly. [facility] zolpidem 5 mg tablet 7 00:00: 00 10-15 00:00 :00 No [id number] 5mg Take 1 tablet by mouth at bedtime as needed for Insomnia. [facility] phentermine 37.5 mg tablet 7 00:00: 00 10-14 00:00 :00 No [id number] 37.5mg Take 1 tablet by mouth daily with breakfast. [facility] phentermine 37.5 mg tablet 617 00:00: 00 09-11 00:00 :00 No [id number] 37.5mg Take 1 tablet by mouth daily with breakfast. [facility] zolpidem 5 mg tablet 2023-0 6-17 00:00: 00 09-11 00:00 :00 No [id number] 5mg Take 1 tablet by mouth at bedtime as needed for Insomnia. [facility] traZODone 100 mg tablet 6-05 00:00: 00 12-09 00:00 :00 No [id number] 100mg Take 1 tablet by mouth at bedtime. [facility] acetaminoph en (TYLENOL) tablet 650 mg 06-20 17:30: 00 06-20 17:25 :00 No 650mg 650 mg, Oral, ONCE, 1 dose, On Sun06/21/23 at 1230, [facility] sulfamethox azole-trime thoprim 800-160 mg per tablet 06-20 00:00: 00 08-05 00:00 :00 No [id number] 1{tbl} Take 1 tablet by mouth every 12 (twelve) hours. [facility] phentermine 37.5 mg tablet 4-09 00:00: 00 08-05 00:00 :00 No [id number] 37.5mg Take 1 tablet by mouth daily with breakfast. [facility] traZODone 100 mg tablet 3-04 00:00: 00 07-24 00:00 :00 No [id number] 100mg Take 1 tablet by mouth at bedtime. [facility] phentermine 37.5 mg tablet 2-22 00:00: 00 05-28 00:00 :00 No [id number] 37.5mg Take 1 tablet by mouth daily with breakfast. [facility] zolpidem 5 mg tablet 2-15 00:00: 00 08-05 00:00 :00 No [id number] 5mg Take 1 tablet by mouth at bedtime as needed for Insomnia. [facility] phentermine 37.5 mg tablet 1-12 00:00: 00 04-11 00:00 :00 No [id number] 37.5mg Take 1 tablet by mouth daily with breakfast. [facility] zolpidem 5 mg tablet 1-02 00:00: 00 04-05 00:00 :00 No [id number] 5mg Take 1 tablet by mouth at bedtime as needed for Insomnia. [facility] phentermine 37.5 mg tablet 2022-02 2-08 00:00: 00 03-02 00:00 :00 No [id number] 37.5mg Take 1 tablet by mouth daily with breakfast. [facility] traZODone 100 mg tablet 2022-02 00:00: 00 04-22 00:00 :00 No [id number] 100mg Take 1 tablet by mouth at bedtime. [facility] phentermine 37.5 mg tablet 2022-02 00:00: 00 01-26 00:00 :00 No [id number] 37.5mg Take 1 tablet by mouth daily with breakfast. [facility] zolpidem 5 mg tablet 2022-02 00:00: 00 02-19 00:00 :00 No [id number] 5mg Take 1 tablet by mouth at bedtime as needed for Insomnia. [facility] TRAZODONE 50 mg tablet 2022-02 00:00: 00 01-24 00:00 :00 No [id number] 50mg TAKE 1 TABLET BY MOUTH EVERYDAY AT BEDTIME [facility] ramelteon 8 mg tablet 2022-02 00:00: 00 01-24 00:00 :00 No [id number] 8mg Take 1 tablet by mouth at bedtime. [facility] Doxepin 6 mg Tab 2022-02 00:00: 00 01-04 00:00 :00 No [id number] 6mg Take 6 mg by mouth at bedtime. [facility] ergocalcife rol, vitamin d2, (VITAMIN D2) 1,250 mcg (50,000 unit) capsule 2022-02 00:00: 00 09-30 00:00 :00 No [id number] 83027A Take 1 capsule by mouth weekly. [facility] traZODone 50 mg tablet 2022-02 00:00: 00 01-16 00:00 :00 No [id number] 50mg Take 1 tablet by mouth at bedtime. [facility] medroxyPROG ESTERone (DEPO-PROVE RA) syringe 150 mg 2021-02 21:15: 00 01-20 20:41 :[id number] [facility] NIFEdipine ER 30 mg tablet 2021-02 0-11 00:00: 00 01-20 00:00 :00 No [id number] 30mg Take 1 tablet by mouth in the morning. [facility] NIFEdipine ER tablet 30 mg 2021-02 0 04:00: 00 Yes 30mg 30 mg, Oral, DAILY, First dose on 11/27/21 at 2300, Until Discontinu ed, Routine [facility] vitamin w/FA tablet 2021-02 00:00: 00 01-20 00:00 :00 No [id number] 1{tbl} Take 1 tablet by mouth in the morning. [facility] docusate 100 mg capsule 2021-02 00:00: 00 01-20 00:00 :00 No [id number] 200mg Take 2 capsules by mouth once daily as needed for Constipati on. [facility] ferrous sulfate 325 mg (65 mg iron) tablet 2021-02 00:00: 00 01-20 00:00 :00 No [id number] 325mg Take 1 tablet by mouth in the morning and 1 tablet in the evening. [facility] ibuprofen 600 mg tablet 2021-02 00:00: 00 01-20 00:00 :00 No [id number] 600mg Take 1 tablet by mouth every 6 (six) hours as needed (Pain). Take with food or milk. [facility] D5W 0.45% NaCl (1/2NS) IV infusion 1,000 mL 2021-02 19:38: 00 Yes 1000mL at 50 mL/hr, 1,000 mL, IV Infusion, CONTINUOUS , Starting on 11/27/21 at 1445, Until Discontinu ed, Routine [facility] HYDROcodone -acetaminop hen (NORCO 5) 5-325 mg tablet 1 tablet 2021-02 12:41: 25 Yes 1{tbl} 1 tablet, Oral, Q6HPRN, Starting on 11/27/21 at 0741, Until Discontinu ed, Routine, Pain (scale 7-10) [facility] ibuprofen (IBU) tablet 600 mg 2021-02 12:41: 25 Yes 600mg 600 mg, Oral, Q6HPRN, Starting on 11/27/21 at 0741, Until Discontinu ed, Routine, Pain (scale 4-6) [facility] acetaminoph en (TYLENOL) tablet 650 mg 2021-02 12:41: 25 Yes 650mg 650 mg, Oral, Q6HPRN, Starting on 11/27/21 at 0741, Until Discontinu ed, Routine, Pain (scale 1-3) [facility] diphenhydrA MINE (BENADRYL) tablet 25 mg 2021-02 12:41: 25 Yes 25mg 25 mg, Oral, Q6HPRN, Starting on 11/27/21 at 0741, Until Discontinu ed, Routine, Sleep, Itching [facility] ondansetron (ZOFRAN (PF)) injection 4 mg 2021-02 12:41: 25 Yes 4mg 4 mg, Slow IV Push, Q8HPRN, Starting on 11/27/21 at 0741, Until Discontinu ed, Routine, Nausea and Vomiting (N/V) [facility] simethicone (GAS RELIEF (SIMETHICON E)) chewable tablet 160 mg 2021-02 12:41: 25 Yes 160mg 160 mg, Oral, PC+HSPRN, Starting on 11/27/21 at 0741, Until Discontinu ed, Routine, Gas [facility] docusate (COLACE) capsule 200 mg 2021-02 12:41: 25 Yes 200mg 200 mg, Oral, QDAILYPRN, Starting on 11/27/21 at 0741, Until Discontinu ed, Routine, Constipati on [facility] magnesium hydroxide (MILK OF MAGNESIA) 400 mg/5 mL suspension 30 mL 2021-02 12:41: 25 Yes 30mL 30 mL, Oral, QDAILYPRN, Starting on 11/27/21 at 0741, Until Discontinu ed, Routine, Constipati on [facility] benzocaine- menthol (DERMOPLAST ) 20-0.5 % topical spray 2021-02 12:41: 25 Yes Topical, PRN, Starting on 11/27/21 at 0741, Until Discontinu ed, Routine, Perineum discomfort [facility] calcium gluconate 100 mg/mL (10%) injection 1,000 mg 2021-02 12:40: 21 Yes 1000mg 1,000 mg, Slow IV Push, PRN - SEE INSTRUCTIO NS, Starting on 11/27/21 at 0740, Until Discontinu ed, Routine, magnesium toxicity [facility] magnesium sulfate 4 mEq/mL (50 %) injection 32.48 mEq 2021-02 12:40: 21 Yes 4g 32.48 mEq (4 g), Slow IV Push, PRN - SEE INSTRUCTIO NS, Starting on 11/27/21 at 0740, Until Discontinu ed, Routine, For seizure activity (patient not on magnesium sulfate) [facility] magnesium sulfate 4 mEq/mL (50 %) injection 16.24 mEq 2021-02 12:40: 21 Yes 2g 16.24 mEq (2 g), Slow IV Push, PRN - SEE INSTRUCTIO NS, 2 doses, Starting on 11/27/21 at 0740, Until Discontinu ed, Routine, For seizure activity (patient already on magnesium sulfate) [facility] labetaloL (NORMODYNE) injection 20 mg 2021-02 12:38: [...] Hypertensi ve Emergency in [Order 4 End] [facility] oxytocin (PITOCIN) 30 units in NS 500 mL IV infusion 2021-02 0 02:10: 24 11-27 12:40 :54 No 2mU/min at 2-40 mL/hr, IV Infusion, TITRATE, Starting on 11/26/21 at 2110, Until 11/27/21 at 0740, Routine [facility] penicillin g pot in dextrose 3 million unit/50 mL RTU iv piggyback 3 Million Units 2021-02 0-08 22:15: 00 11-27 12:40 :54 No 310 3 Million Units, IV Piggyback, Q4H ABX, First dose on 11/26/21 at 1715, Until Discontinu ed, Administer over 60 Minutes, 50 mL
Reas on for Anti-Infec tive: Empiric Non-Surgic al Prophylaxi s
Durat ion of therapy: 72 hours [facility] fentaNYL-ro pivacaine 2 mcg/mL-0.1 % (PF) in NS 200 mL epidural infusion RTU 2021-02 0-08 20:46: 00 11-27 13:52 :31 No Epidural, ONCE INTRA PROCEDURE, Starting on 11/26/21 at 1546, Until 11/27/21 at 0852, Routine, Intra-op [facility] lidocaine-e pinephrine (XYLOCAINE W/EPINEPHRI NE) 1.5 %-1:200,000 injection 2021-02 20:43: 00 Yes Epidural, ONCE INTRA PROCEDURE, Starting on 11/26/21 at 1543, Until Discontinu ed, Routine, Intra-op [facility] penicillin g potassium 5 Million Units in NaCl 0.9% (NS) 100 mL MINI-BAG 2021-02 18:15: 00 11-26 19:13 :00 No 510 5 Million Units, IV Piggyback, ONCE, 1 dose, On 11/26/21 at 1315, Administer over 60 Minutes, 100 mL
Reas on for Anti-Infec tive: Empiric Non-Surgic al Prophylaxi s
Durat ion of therapy: 72 hours [facility] NaCl 0.9% (NS) IV infusion 1,000 mL 2021-02 18:00: 00 11-27 12:40 :54 No 1000mL at 50 mL/hr, IV Infusion, CONTINUOUS , Starting on 11/26/21 at 1300, Until 11/27/21 at 0740, Routine [facility] oxytocin (PITOCIN) 30 units in NS 500 mL IV infusion 2021-02 14:31: 25 11-27 02:11 :24 No 2mU/min at 2-40 mL/hr, IV Infusion, TITRATE, Starting on 11/26/21 at 0931, Until 11/26/21 at 2111, Routine [facility] FENTanyl PF (SUBLIMAZE (PF)) injection 100 mcg 2021-02 13:50: 58 11-27 12:40 :54 No 100ug 100 mcg, Slow IV Push, Q1HPRN, Starting on 11/26/21 at 0850, Until 11/27/21 at 0740, Routine, Pain (scale 4-6), Pain (scale 7-10) [facility] misoprostol (CYTOTEC) quarter-tab let 25 mcg 2021-02 13:45: 00 11-26 13:22 :00 No 25ug 25 mcg, Vaginal, ONCE, 1 dose, On 11/26/21 at 0845, Routine [facility] butalbital- acetaminoph en-caff (ESGIC) 50-325-40 mg tablet 1 tablet 2021-02 09:45: 00 11-26 08:57 :00 No 1{tbl} 1 tablet, Oral, ONCE NOW, 1 dose, On 11/26/21 at 0445, Routine [facility] magnesium sulfate in water for injection 20 gram/500 mL (4 %) IV infusion 2021-02 09:00: 00 Yes 2g/h 2 g/hr (50 mL/hr), IV Infusion, CONTINUOUS , Starting on 11/26/21 at 0400, Until Discontinu ed, Routine [facility] D5W 0.45% NaCl (1/2NS) IV infusion 1,000 mL 2021-02 09:00: 00 11-27 12:40 :54 No 1000mL at 75 mL/hr, 1,000 mL, IV Infusion, CONTINUOUS , Starting on 11/26/21 at 0400, Until 11/27/21 at 0740, Routine [facility] promethazin e 6.25 mg/5 mL solution 11-09 00:00: 00 11-28 00:00 :00 No [id number] 12.5mg Take 10 mL by mouth every 4 (four) hours as needed for Nausea and Vomiting (N/V). [facility] promethazin e 6.25 mg/5 mL solution 10-18 00:00: 00 11-09 00:00 :00 No [id number] 12.5mg Take 10 mL by mouth every 4 (four) hours as needed for Nausea and Vomiting (N/V). [facility] promethazin e 6.25 mg/5 mL solution 09-29 00:00: 00 10-18 00:00 :00 No [id number] 12.5mg Take 10 mL by mouth every 4 (four) hours as needed for Nausea and Vomiting (N/V). [facility] promethazin e 6.25 mg/5 mL solution 623 00:00: 00 09-15 00:00 :00 No [id number] 12.5mg Take 10 mL by mouth every 4 (four) hours as needed for Nausea and Vomiting (N/V). [facility] proMETHazin e 25 mg tablet 07-17 00:00: 00 09-15 00:00 :00 No [id number] 25mg Take 1 tablet by mouth every 6 (six) hours as needed for Nausea and Vomiting (N/V). [facility] promethazin e 6.25 mg/5 mL solution 06-24 00:00: 00 06-29 00:00 :00 No [id number] 12.5mg Take 10 mL by mouth every 4 (four) hours as needed for Nausea and Vomiting (N/V). [facility] vit 33-iron-fol ic-dha (SELECT-OB + DHA) 29 mg iron-1 mg -250 mg combo pack 06-23 00:00: 00 07-17 00:00 :00 No [id number] 1{packe t} Take 1 Packet by mouth daily. [facility] proMETHazin e 25 mg suppository 06-22 00:00: 00 09-15 00:00 :00 No [id number] 25mg Insert 1 Suppositor y into rectum every 4 (four) hours as needed for Nausea and Vomiting (N/V). [facility] Immunizations Ordered Immunization Name Filled Immunization Name Date Status Comments Source HPV9 2022-12-25 00:00:[address] [facility] HPV9 2022-12-25 00:00:[address] [facility] HPV9 2022-12-25 00:00:[address] [facility] HPV9 2022-12-25 00:00:[address] [facility] HPV9 2022-12-25 00:00:[address] [facility] HPV9 2022-12-25 00:00:[address] [facility] HPV9 2022-12-25 00:00:[address] [facility] TDAP 2021-09-29 00:00:[address] [facility] TDAP 2021-09-29 00:00:[address] [facility] TDAP 2021-09-29 00:00:[address] [facility] TDAP 2021-09-29 00:00:[address] [facility] TDAP 2021-09-29 00:00:[address] [facility] TDAP 2021-09-29 00:00:[address] [facility] TDAP 2021-09-29 00:00:[address] [facility] TDAP 2021-09-29 00:00:[address] [facility] TDAP 2021-09-29 00:00:[address] [facility] TDAP 2021-09-29 00:00:[address] [facility] TDAP 2021-09-29 00:00:[address] [facility] TDAP 2021-09-29 00:00:[address] [facility] TDAP 2021-09-29 00:00:[address] [facility] TDAP 2021-09-29 00:00:[address] [facility] TDAP 2021-09-29 00:00:[address] [facility] TDAP 2021-09-29 00:00:[address] [facility] TDAP 2021-09-29 00:00:[address] [facility] TDAP 2021-09-29 00:00:[address] [facility] TDAP 2021-09-29 00:00:[address] [facility] TDAP 2021-09-29 00:00:[address] [facility] TDAP 2021-09-29 00:00:[address] [facility] TDAP 2021-09-29 00:00:[address] [facility] TDAP 2021-09-29 00:00:[address] [facility] TDAP 2021-09-29 00:00:[address] [facility] TDAP 2009-10-06 00:00:00 Completed HEPATITIS A [...] Trivalent 1997-11-23 00:00:00 Completed TDAP Unknown Completed [facility] TDAP Unknown Completed [facility] TDAP Unknown Completed [facility] TDAP Unknown Completed [facility] TDAP Unknown Completed [facility] TDAP Unknown Completed [facility] DTaP, Unspecified Formulation Unknown Completed [facility] HEPATITIS A Unknown Completed [facility] Hep B, Adol or Pedi Dosage Unknown Completed [facility] HIB 4 Dose Schedule Unknown Completed [facility] Haemophilus influenzae type b vaccine, conjugate unspecified formulation Unknown Completed [facility] HPV Unknown Completed [facility] Meningococcal Polysaccharide (groups A, C, Y and W-135) conjugate vaccine (MCV4P) Unknown Completed [facility] MMR Unknown Completed [facility] IPV Unknown Completed [facility] Poliovirus, Live, Oral, Trivalent Unknown Completed [facility] HPV9 [address] [facility] HEPATITIS A Unknown Completed [facility] Haemophilus influenzae type b vaccine, conjugate unspecified formulation Unknown Completed [facility] HPV Unknown Completed [facility] Meningococcal Polysaccharide (groups A, C, Y and W-135) conjugate vaccine (MCV4P) Unknown Completed [facility] HPV9 Unknown Com[address] [facility] TDAP Unknown Completed [facility] DTaP, Unspecified Formulation Unknown Completed [facility] Hep B, Adol or Pedi Dosage Unknown Completed [facility] HIB 4 Dose Schedule Unknown Completed [facility] MMR Unknown Completed [facility] IPV Unknown Completed [facility] Poliovirus, Live, Oral, Trivalent Unknown Completed [facility] TDAP Unknown Completed [facility] DTaP, Unspecified Formulation Unknown Completed [facility] HEPATITIS A Unknown Completed [facility] Hep B, Adol or Pedi Dosage Unknown Completed [facility] HIB 4 Dose Schedule Unknown Completed [facility] Haemophilus influenzae type b vaccine, conjugate unspecified formulation Unknown Completed [facility] HPV Unknown Completed [facility] Meningococcal Polysaccharide (groups A, C, Y and W-135) conjugate vaccine (MCV4P) Unknown Completed [facility] MMR Unknown Completed [facility] IPV Unknown Completed [facility] Poliovirus, Live, Oral, Trivalent Unknown Completed [facility] HPV9 [address] [facility] TDAP Unknown Completed [facility] DTaP, Unspecified Formulation Unknown Completed [facility] HEPATITIS A Unknown Completed [facility] Hep B, Adol or Pedi Dosage Unknown Completed [facility] HIB 4 Dose Schedule Unknown Completed [facility] Haemophilus influenzae type b vaccine, conjugate unspecified formulation Unknown Completed [facility] HPV Unknown Completed [facility] Meningococcal Polysaccharide (groups A, C, Y and W-135) conjugate vaccine (MCV4P) Unknown Completed [facility] MMR Unknown Completed [facility] IPV Unknown Completed [facility] Poliovirus, Live, Oral, Trivalent Unknown Completed [facility] HPV9 [address] [facility] TDAP Unknown Completed [facility] DTaP, Unspecified Formulation Unknown Completed [facility] HEPATITIS A Unknown Completed [facility] Hep B, Adol or Pedi Dosage Unknown Completed [facility] HIB 4 Dose Schedule Unknown Completed [facility] Haemophilus influenzae type b vaccine, conjugate unspecified formulation Unknown Completed [facility] HPV Unknown Completed [facility] Meningococcal Polysaccharide (groups A, C, Y and W-135) conjugate vaccine (MCV4P) Unknown Completed [facility] MMR Unknown Completed [facility] IPV Unknown Completed [facility] Poliovirus, Live, Oral, Trivalent Unknown Completed [facility] HPV9 [address] [facility] TDAP Unknown Completed [facility] DTaP, Unspecified Formulation Unknown Completed [facility] HEPATITIS A Unknown Completed [facility] Hep B, Adol or Pedi Dosage Unknown Completed [facility] HIB 4 Dose Schedule Unknown Completed [facility] [facility] Haemophilus influenzae type b vaccine, conjugate unspecified formulation Unknown Completed [facility] HPV Unknown Completed [facility] Meningococcal Polysaccharide (groups A, C, Y and W-135) conjugate vaccine (MCV4P) Unknown Completed [facility] MMR Unknown Completed [facility] IPV Unknown Completed [facility] Poliovirus, Live, Oral, Trivalent Unknown Completed [facility] HPV9 [address] [facility] HEPATITIS A Unknown Completed [facility] Haemophilus influenzae type b vaccine, conjugate unspecified formulation Unknown Completed [facility] HPV Unknown Completed [facility] Meningococcal Polysaccharide (groups A, C, Y and W-135) conjugate vaccine (MCV4P) Unknown Completed [facility] HPV9 [address] Com[address] [facility] TDAP Unknown Completed [facility] DTaP, Unspecified Formulation Unknown Completed [facility] Hep B, Adol or Pedi Dosage Unknown Completed [facility] HIB 4 Dose Schedule Unknown Completed [facility] MMR Unknown Completed [facility] IPV Unknown Completed [facility] Poliovirus, Live, Oral, Trivalent Unknown Completed [facility] TDAP Unknown Completed [facility] DTaP, Unspecified Formulation Unknown Completed [facility] HEPATITIS A Unknown Completed [facility] Hep B, Adol or Pedi Dosage Unknown Completed [facility] HIB 4 Dose Schedule Unknown Completed [facility] Haemophilus influenzae type b vaccine, conjugate unspecified formulation Unknown Completed [facility] HPV Unknown Completed [facility] Meningococcal Polysaccharide (groups A, C, Y and W-135) conjugate vaccine (MCV4P) Unknown Completed [facility] MMR Unknown Completed [facility] IPV Unknown Completed [facility] Poliovirus, Live, Oral, Trivalent Unknown Completed [facility] HPV9 [address] [facility] TDAP Unknown Completed [facility] DTaP, Unspecified Formulation Unknown Completed [facility] HEPATITIS A Unknown Completed [facility] Hep B, Adol or Pedi Dosage Unknown Completed [facility] HIB 4 Dose Schedule Unknown Completed [facility] Haemophilus influenzae type b vaccine, conjugate unspecified formulation Unknown Completed [facility] HPV Unknown Completed [facility] Meningococcal Polysaccharide (groups A, C, Y and W-135) conjugate vaccine (MCV4P) Unknown Completed [facility] MMR Unknown Completed [facility] IPV Unknown Completed [facility] Poliovirus, Live, Oral, Trivalent Unknown Completed [facility] HPV9 [address] [facility] TDAP Unknown Completed [facility] DTaP, Unspecified Formulation Unknown Completed [facility] HEPATITIS A Unknown Completed [facility] Hep B, Adol or Pedi Dosage Unknown Completed [facility] HIB 4 Dose Schedule Unknown Completed [facility] Haemophilus influenzae type b vaccine, conjugate unspecified formulation Unknown Completed [facility] HPV Unknown Completed [facility] Meningococcal Polysaccharide (groups A, C, Y and W-135) conjugate vaccine (MCV4P) Unknown Completed [facility] MMR Unknown Completed [facility] IPV Unknown Completed [facility] Poliovirus, Live, Oral, Trivalent Unknown Completed [facility] HPV9 [address] [facility] TDAP Unknown Completed [facility] DTaP, Unspecified Formulation Unknown Completed [facility] HEPATITIS A Unknown Completed [facility] Hep B, Adol or Pedi Dosage Unknown Completed [facility] HIB 4 Dose Schedule Unknown Completed [facility] Haemophilus influenzae type b vaccine, conjugate unspecified formulation Unknown Completed [facility] HPV Unknown Completed [facility] Meningococcal Polysaccharide (groups A, C, Y and W-135) conjugate vaccine (MCV4P) Unknown Completed [facility] MMR Unknown Completed [facility] IPV Unknown Completed [facility] Poliovirus, Live, Oral, Trivalent Unknown Completed [facility] HPV9 [address] [facility] HEPATITIS A Unknown Completed [facility] Haemophilus influenzae type b vaccine, conjugate unspecified formulation Unknown Completed [facility] HPV Unknown Completed [facility] Meningococcal Polysaccharide (groups A, C, Y and W-135) conjugate vaccine (MCV4P) Unknown Completed [facility] HPV9 [address] Com[address] [facility] TDAP Unknown Completed [facility] DTaP, Unspecified Formulation Unknown Completed [facility] Hep B, Adol or Pedi Dosage Unknown Completed [facility] HIB 4 Dose Schedule Unknown Completed [facility] MMR Unknown Completed [facility] IPV Unknown Completed [facility] Poliovirus, Live, Oral, Trivalent Unknown Completed [facility] TDAP Unknown Completed [facility] DTaP, Unspecified Formulation Unknown Completed [facility] HEPATITIS A Unknown Completed [facility] Hep B, Adol or Pedi Dosage Unknown Completed [facility] HIB 4 Dose Schedule Unknown Completed [facility] Haemophilus influenzae type b vaccine, conjugate unspecified formulation Unknown Completed [facility] HPV Unknown Completed [facility] Meningococcal Polysaccharide (groups A, C, Y and W-135) conjugate vaccine (MCV4P) Unknown Completed [facility] MMR Unknown Completed [facility] IPV Unknown Completed [facility] Poliovirus, Live, Oral, Trivalent Unknown Completed [facility] HPV9 [address] [facility] TDAP Unknown Completed [facility] DTaP, Unspecified Formulation Unknown Completed [facility] HEPATITIS A Unknown Completed [facility] Hep B, Adol or Pedi Dosage Unknown Completed [facility] HIB 4 Dose Schedule Unknown Completed [facility] Haemophilus influenzae type b vaccine, conjugate unspecified formulation Unknown Completed [facility] HPV Unknown Completed [facility] Meningococcal Polysaccharide (groups A, C, Y and W-135) conjugate vaccine (MCV4P) Unknown Completed [facility] MMR Unknown Completed [facility] IPV Unknown Completed [facility] Poliovirus, Live, Oral, Trivalent Unknown Completed [facility] HPV9 [address] [facility] TDAP Unknown Completed [facility] DTaP, Unspecified Formulation Unknown Completed [facility] HEPATITIS A Unknown Completed [facility] Hep B, Adol or Pedi Dosage Unknown Completed [facility] HIB 4 Dose Schedule Unknown Completed [facility] Haemophilus influenzae type b vaccine, conjugate unspecified formulation Unknown Completed [facility] HPV Unknown Completed [facility] Meningococcal Polysaccharide (groups A, C, Y and W-135) conjugate vaccine (MCV4P) Unknown Completed [facility] MMR Unknown Completed [facility] IPV Unknown Completed [facility] Poliovirus, Live, Oral, Trivalent Unknown Completed [facility] HPV9 [address] Com[address] [facility] TDAP Unknown Completed [facility] DTaP, Unspecified Formulation Unknown Completed [facility] HEPATITIS A Unknown Completed [facility] Hep B, Adol or Pedi Dosage Unknown Completed [facility] HIB 4 Dose Schedule Unknown Completed [facility] Haemophilus influenzae type b vaccine, conjugate unspecified formulation Unknown Completed [facility] HPV Unknown Completed [facility] Meningococcal Polysaccharide (groups A, C, Y and W-135) conjugate vaccine (MCV4P) Unknown Completed [facility] MMR Unknown Completed [facility] IPV Unknown Completed [facility] Poliovirus, Live, Oral, Trivalent Unknown Completed [facility] HPV9 [address] [facility] HEPATITIS A Unknown Completed [facility] Haemophilus influenzae type b vaccine, conjugate unspecified formulation Unknown Completed [facility] HPV Unknown Completed [facility] Meningococcal Polysaccharide (groups A, C, Y and W-135) conjugate vaccine (MCV4P) Unknown Completed [facility] HPV9 [address] [facility] TDAP Unknown Completed [facility] DTaP, Unspecified Formulation Unknown Completed [facility] HEPATITIS A Unknown Completed [facility] Hep B, Adol or Pedi Dosage Unknown Completed [facility] HIB 4 Dose Schedule Unknown Completed [facility] Haemophilus influenzae type b vaccine, conjugate unspecified formulation Unknown Completed [facility] HPV Unknown Completed [facility] Meningococcal Polysaccharide (groups A, C, Y and W-135) conjugate vaccine (MCV4P) Unknown Completed [facility] MMR Unknown Completed [facility] IPV Unknown Completed [facility] Poliovirus, Live, Oral, Trivalent Unknown Completed [facility] HPV9 [address] [facility] TDAP Unknown Completed [facility] DTaP, Unspecified Formulation Unknown Completed [facility] HEPATITIS A Unknown Completed [facility] Hep B, Adol or Pedi Dosage Unknown Completed [facility] HIB 4 Dose Schedule Unknown Completed [facility] Haemophilus influenzae type b vaccine, conjugate unspecified formulation Unknown Completed [facility] HPV Unknown Completed [facility] Meningococcal Polysaccharide (groups A, C, Y and W-135) conjugate vaccine (MCV4P) Unknown Completed [facility] MMR Unknown Completed [facility] IPV Unknown Completed [facility] Poliovirus, Live, Oral, Trivalent Unknown Completed [facility] HPV9 [address] Com[address] [facility] TDAP Unknown Completed [facility] DTaP, Unspecified Formulation Unknown Completed [facility] HEPATITIS A Unknown Completed [facility] Hep B, Adol or Pedi Dosage Unknown Completed [facility] HIB 4 Dose Schedule Unknown Completed [facility] Haemophilus influenzae type b vaccine, conjugate unspecified formulation Unknown Completed [facility] HPV Unknown Completed [facility] Meningococcal Polysaccharide (groups A, C, Y and W-135) conjugate vaccine (MCV4P) Unknown Completed [facility] MMR Unknown Completed [facility] IPV Unknown Completed [facility] Poliovirus, Live, Oral, Trivalent Unknown Completed [facility] HPV9 [address] Com[address] [facility] TDAP Unknown Completed [facility] DTaP, Unspecified Formulation Unknown Completed [facility] HEPATITIS A Unknown Completed [facility] Hep B, Adol or Pedi Dosage Unknown Completed [facility] HIB 4 Dose Schedule Unknown Completed [facility] Haemophilus influenzae type b vaccine, conjugate unspecified formulation Unknown Completed [facility] HPV Unknown Completed [facility] Meningococcal Polysaccharide (groups A, C, Y and W-135) conjugate vaccine (MCV4P) Unknown Completed [facility] MMR Unknown Completed [facility] IPV Unknown Completed [facility] Poliovirus, Live, Oral, Trivalent Unknown Completed [facility] HPV9 [address] Com[address] [facility] TDAP Unknown Completed [facility] DTaP, Unspecified Formulation Unknown Completed [facility] Hep B, Adol or Pedi Dosage Unknown Completed [facility] HIB 4 Dose Schedule Unknown Completed [facility] MMR Unknown Completed [facility] IPV Unknown Completed [facility] Poliovirus, Live, Oral, Trivalent Unknown Completed [facility] TDAP Unknown Completed [facility] DTaP, Unspecified Formulation Unknown Completed [facility] HEPATITIS A Unknown Completed [facility] Hep B, Adol or Pedi Dosage Unknown Completed [facility] HIB 4 Dose Schedule Unknown Completed [facility] Haemophilus influenzae type b vaccine, conjugate unspecified formulation Unknown Completed [facility] HPV Unknown Completed [facility] Meningococcal Polysaccharide (groups A, C, Y and W-135) conjugate vaccine (MCV4P) Unknown Completed [facility] MMR Unknown Completed [facility] IPV Unknown Completed [facility] Poliovirus, Live, Oral, Trivalent Unknown Completed [facility] HPV9 [address] Com[address] [facility] TDAP Unknown Completed [facility] DTaP, Unspecified Formulation Unknown Completed [facility] HEPATITIS A Unknown Completed [facility] Hep B, Adol or Pedi Dosage Unknown Completed [facility] HIB 4 Dose Schedule Unknown Completed [facility] Haemophilus influenzae type b vaccine, conjugate unspecified formulation Unknown Completed [facility] HPV Unknown Completed [facility] Meningococcal Polysaccharide (groups A, C, Y and W-135) conjugate vaccine (MCV4P) Unknown Completed [facility] MMR Unknown Completed [facility] IPV Unknown Completed [facility] Poliovirus, Live, Oral, Trivalent Unknown Completed [facility] HPV9 [address] Com[address] [facility] TDAP Unknown Completed [facility] DTaP, Unspecified Formulation Unknown Completed [facility] HEPATITIS A Unknown Completed [facility] Hep B, Adol or Pedi Dosage Unknown Completed [facility] HIB 4 Dose Schedule Unknown Completed [facility] Haemophilus influenzae type b vaccine, conjugate unspecified formulation Unknown Completed [facility] HPV Unknown Completed [facility] Meningococcal Polysaccharide (groups A, C, Y and W-135) conjugate vaccine (MCV4P) Unknown Completed [facility] MMR Unknown Completed [facility] IPV Unknown Completed [facility] Poliovirus, Live, Oral, Trivalent Unknown Completed [facility] HPV9 [address] Com[address] [facility] TDAP Unknown Completed [facility] DTaP, Unspecified Formulation Unknown Completed [facility] HEPATITIS A Unknown Completed [facility] Hep B, Adol or Pedi Dosage Unknown Completed [facility] HIB 4 Dose Schedule Unknown Completed [facility] Haemophilus influenzae type b vaccine, conjugate unspecified formulation Unknown Completed [facility] HPV Unknown Completed [facility] Meningococcal Polysaccharide (groups A, C, Y and W-135) conjugate vaccine (MCV4P) Unknown Completed [facility] MMR Unknown Completed [facility] IPV Unknown Completed [facility] Poliovirus, Live, Oral, Trivalent Unknown Completed [facility] HPV9 Unknown Com[address] [facility] TDAP Unknown Completed [facility] DTaP, Unspecified Formulation Unknown Completed [facility] HEPATITIS A Unknown Completed [facility] Hep B, Adol or Pedi Dosage Unknown Completed [facility] HIB 4 Dose Schedule Unknown Completed [facility] Haemophilus influenzae type b vaccine, conjugate unspecified formulation Unknown Completed [facility] HPV Unknown Completed [facility] Meningococcal Polysaccharide (groups A, C, Y and W-135) conjugate vaccine (MCV4P) Unknown Completed [facility] MMR Unknown Completed [facility] IPV Unknown Completed [facility] Poliovirus, Live, Oral, Trivalent Unknown Completed [facility] HPV9 [address] Com[address] [facility] TDAP Unknown Completed [facility] DTaP, Unspecified Formulation Unknown Completed [facility] HEPATITIS A Unknown Completed [facility] Hep B, Adol or Pedi Dosage Unknown Completed [facility] HIB 4 Dose Schedule Unknown Completed [facility] Haemophilus influenzae type b vaccine, conjugate unspecified formulation Unknown Completed [facility] HPV Unknown Completed [facility] Meningococcal Polysaccharide (groups A, C, Y and W-135) conjugate vaccine (MCV4P) Unknown Completed [facility] MMR Unknown Completed [facility] IPV Unknown Completed [facility] Poliovirus, Live, Oral, Trivalent Unknown Completed [facility] HPV9 [address] Com[address] [facility] TDAP Unknown Completed [facility] DTaP, Unspecified Formulation Unknown Completed [facility] HEPATITIS A Unknown Completed [facility] Hep B, Adol or Pedi Dosage Unknown Completed [facility] HIB 4 Dose Schedule Unknown Completed [facility] Haemophilus influenzae type b vaccine, conjugate unspecified formulation Unknown Completed [facility] HPV Unknown Completed [facility] Meningococcal Polysaccharide (groups A, C, Y and W-135) conjugate vaccine (MCV4P) Unknown Completed [facility] MMR Unknown Completed [facility] IPV Unknown Completed [facility] Poliovirus, Live, Oral, Trivalent Unknown Completed [facility] HPV9 [address] Com[address] [facility] TDAP Unknown Completed [facility] DTaP, Unspecified Formulation Unknown Completed [facility] HEPATITIS A Unknown Completed [facility] Hep B, Adol or Pedi Dosage Unknown Completed [facility] HIB 4 Dose Schedule Unknown Completed [facility] Haemophilus influenzae type b vaccine, conjugate unspecified formulation Unknown Completed [facility] HPV Unknown Completed [facility] Meningococcal Polysaccharide (groups A, C, Y and W-135) conjugate vaccine (MCV4P) Unknown Completed [facility] MMR Unknown Completed [facility] IPV Unknown Completed [facility] Poliovirus, Live, Oral, Trivalent Unknown Completed [facility] HPV9 [address] Com[address] [facility] HEPATITIS A Unknown Completed [facility] Haemophilus influenzae type b vaccine, conjugate unspecified formulation Unknown Completed [facility] HPV Unknown Completed [facility] Meningococcal Polysaccharide (groups A, C, Y and W-135) conjugate vaccine (MCV4P) Unknown Completed [facility] HPV9 Unknown Com[address] [facility] TDAP Unknown Completed [facility] DTaP, Unspecified Formulation Unknown Completed [facility] Hep B, Adol or Pedi Dosage Unknown Completed [facility] HIB 4 Dose Schedule Unknown Completed [facility] MMR Unknown Completed [facility] IPV Unknown Completed [facility] Poliovirus, Live, Oral, Trivalent Unknown Completed [facility] HEPATITIS A Unknown Completed [facility] Haemophilus influenzae type b vaccine, conjugate unspecified formulation Unknown Completed [facility] HPV Unknown Completed [facility] Meningococcal Polysaccharide (groups A, C, Y and W-135) conjugate vaccine (MCV4P) Unknown Completed [facility] HPV9 [address] Com[address] [facility] TDAP Unknown Completed [facility] DTaP, Unspecified Formulation Unknown Completed [facility] Hep B, Adol or Pedi Dosage Unknown Completed [facility] HIB 4 Dose Schedule Unknown Completed [facility] MMR Unknown Completed [facility] IPV Unknown Completed [facility] Poliovirus, Live, Oral, Trivalent Unknown Completed [facility] HEPATITIS A Unknown Completed [facility] Haemophilus influenzae type b vaccine, conjugate unspecified formulation Unknown Completed [facility] HPV Unknown Completed [facility] Meningococcal Polysaccharide (groups A, C, Y and W-135) conjugate vaccine (MCV4P) Unknown Completed [facility] HPV9 [address] Com[address] [facility] TDAP Unknown Completed [facility] DTaP, Unspecified Formulation Unknown Completed [facility] Hep B, Adol or Pedi Dosage Unknown Completed [facility] HIB 4 Dose Schedule Unknown Completed [facility] MMR Unknown Completed [facility] IPV Unknown Completed [facility] Poliovirus, Live, Oral, Trivalent Unknown Completed [facility] TDAP Unknown Completed [facility] DTaP, Unspecified Formulation Unknown Completed [facility] HEPATITIS A Unknown Completed [facility] Hep B, Adol or Pedi Dosage Unknown Completed [facility] HIB 4 Dose Schedule Unknown Completed [facility] Haemophilus influenzae type b vaccine, conjugate unspecified formulation Unknown Completed [facility] HPV Unknown Completed [facility] Meningococcal Polysaccharide (groups A, C, Y and W-135) conjugate vaccine (MCV4P) Unknown Completed [facility] MMR Unknown Completed [facility] IPV Unknown Completed [facility] Poliovirus, Live, Oral, Trivalent Unknown Completed [facility] HPV9 [address] Com[address] [facility] TDAP Unknown Completed [facility] DTaP, Unspecified Formulation Unknown Completed [facility] HEPATITIS A Unknown Completed [facility] Hep B, Adol or Pedi Dosage Unknown Completed [facility] HIB 4 Dose Schedule Unknown Completed [facility] Haemophilus influenzae type b vaccine, conjugate unspecified formulation Unknown Completed [facility] HPV Unknown Completed [facility] Meningococcal Polysaccharide (groups A, C, Y and W-135) conjugate vaccine (MCV4P) Unknown Completed [facility] MMR Unknown Completed [facility] IPV Unknown Completed [facility] Poliovirus, Live, Oral, Trivalent Unknown Completed [facility] HPV9 [address] Com[address] [facility] TDAP Unknown Completed [facility] DTaP, Unspecified Formulation Unknown Completed [facility] HEPATITIS A Unknown [facility] Hep B, Adol or Pedi Dosage Unknown Completed [facility] HIB 4 Dose Schedule Unknown Completed [facility] Haemophilus influenzae type b vaccine, conjugate unspecified formulation Unknown Completed [facility] HPV Unknown Completed [facility] Meningococcal Polysaccharide (groups A, C, Y and W-135) conjugate vaccine (MCV4P) Unknown Completed [facility] MMR Unknown Completed [facility] IPV Unknown Completed [facility] Poliovirus, Live, Oral, Trivalent Unknown Completed [facility] HPV9 [address] Com[address] [facility] TDAP Unknown Completed [facility] DTaP, Unspecified Formulation Unknown Completed [facility] HEPATITIS A Unknown Completed [facility] Hep B, Adol or Pedi Dosage Unknown Completed [facility] HIB 4 Dose Schedule Unknown Completed [facility] Haemophilus influenzae type b vaccine, conjugate unspecified formulation Unknown Completed [facility] HPV Unknown Completed [facility] Meningococcal Polysaccharide (groups A, C, Y and W-135) conjugate vaccine (MCV4P) Unknown Completed [facility] MMR Unknown Completed [facility] IPV Unknown Completed [facility] Poliovirus, Live, Oral, Trivalent Unknown Completed [facility] HPV9 [address] Com[address] [facility] TDAP Unknown Completed [facility] DTaP, Unspecified Formulation Unknown Completed [facility] HEPATITIS A Unknown Completed [facility] Hep B, Adol or Pedi Dosage Unknown Completed [facility] HIB 4 Dose Schedule Unknown Completed [facility] Haemophilus influenzae type b vaccine, conjugate unspecified formulation Unknown Completed [facility] HPV Unknown Completed [facility] Meningococcal Polysaccharide (groups A, C, Y and W-135) conjugate vaccine (MCV4P) Unknown Completed [facility] MMR Unknown Completed [facility] IPV Unknown Completed [facility] Poliovirus, Live, Oral, Trivalent Unknown Completed [facility] HPV9 [address] Com[address] [facility] Vital Signs Vital Name Observation Time Observation Value Comments S ource Systolic blood pressure 2024-02-27 16:52:00 118 mm[Hg] [facility] Diastolic blood pressure 2024-02-27 16:52:00 82 mm[Hg] [facility] Heart rate 2024-02-27 16:52:00 113 /min [facility] Body temperature 2024-02-27 16:52:[address] [facility] Respiratory rate 2024-02-27 16:52:00 18 /min [facility] Body height 2024-02-27 16:52:00 166.4 cm [facility] Body weight 2024-02-27 16:52:00 117.164 kg [facility] BMI 2024-02-27 16:52:00 42.33 kg/m2 [facility] Oxygen saturation in Arterial blood by Pulse oximetry 2024-02-27 16:52:00 99 /min [facility] Systolic blood pressure 2024-02-22 08:00:00 172 mm[Hg] [facility] Diastolic blood pressure 2024-02-22 08:00:00 90 mm[Hg] [facility] Heart rate 2024-02-22 08:00:00 89 /min [facility] Body temperature 2024-02-22 08:00:[address] [facility] Respiratory rate 2024-02-22 08:00:00 20 /min [facility] Oxygen saturation in Arterial blood by Pulse oximetry 2024-02-22 08:00:00 100 /min [facility] Body height 2024-02-22 05:52:00 165.1 cm [facility] Body weight 2024-02-22 05:52:00 108.863 kg [facility] BMI 2024-02-22 05:52:00 39.94 kg/m2 [facility] Systolic blood pressure 2024-01-29 19:50:00 125 mm[Hg] [facility] Diastolic blood pressure 2024-01-29 19:50:00 85 mm[Hg] [facility] Heart rate 2024-01-29 19:50:00 103 /min [facility] Respiratory rate 2024-01-29 19:50:00 15 /min [facility] Oxygen saturation in Arterial blood by Pulse oximetry 2024-01-29 19:50:00 96 /min [facility] Body temperature 2024-01-29 18:30:[address] [facility] Body height 2024-01-21 21:15:00 165.1 cm [facility] Body weight 2024-01-21 21:15:00 122.471 kg [facility] BMI 2024-01-21 21:15:00 44.93 kg/m2 [facility] Systolic blood pressure 2024-01-29 18:35:00 127 mm[Hg] [facility] Diastolic blood pressure 2024-01-29 18:35:00 82 mm[Hg] [facility] Heart rate 2024-01-29 18:35:00 114 /min [facility] Respiratory rate 2024-01-29 18:35:00 18 /min [facility] Oxygen saturation in Arterial blood by Pulse oximetry 2024-01-29 18:35:00 100 /min [facility] Body temperature 2024-01-29 18:30:[address] [facility] Body height 2024-01-21 21:15:00 165.1 cm [facility] Body weight 2024-01-21 21:15:00 122.471 kg [facility] BMI 2024-01-21 21:15:00 44.93 kg/m2 [facility] Systolic blood pressure 2024-01-12 11:25:00 156 mm[Hg] [facility] Diastolic blood pressure 2024-01-12 11:25:00 110 mm[Hg] [facility] Respiratory rate 2024-01-12 11:25:00 12 /min [facility] Oxygen saturation in Arterial blood by Pulse oximetry 2024-01-12 11:25:00 97 /min [facility] Heart rate 2024-01-12 11:15:00 88 /min [facility] Body temperature 2024-01-12 09:59:[address] [facility] Body height 2024-01-12 09:59:00 165.1 cm [facility] Body weight 2024-01-12 09:59:00 122.471 kg [facility] BMI 2024-01-12 09:59:00 44.93 kg/m2 [facility] Systolic blood pressure 2024-01-07 17:05:00 136 mm[Hg] [facility] Diastolic blood pressure 2024-01-07 17:05:00 99 mm[Hg] [facility] Heart rate 2024-01-07 17:05:00 109 /min [facility] Oxygen saturation in Arterial blood by Pulse oximetry 2024-01-07 17:05:00 100 /min [facility] Body temperature 2024-01-07 17:02:[address] [facility] Respiratory rate 2024-01-07 17:02:00 18 /min [facility] Body height 2024-01-07 17:02:00 165.1 cm [facility] Body weight 2024-01-07 17:02:00 122.471 kg [facility] BMI 2024-01-07 17:02:00 44.93 kg/m2 [facility] Systolic blood pressure 2024-01-03 17:27:00 111 mm[Hg] [facility] Diastolic blood pressure 2024-01-03 17:27:00 77 mm[Hg] [facility] Heart rate 2024-01-03 17:27:00 99 /min [facility] Body temperature 2024-01-03 17:27:[address] [facility] Respiratory rate 2024-01-03 17:27:00 18 /min [facility] Body height 2024-01-03 17:27:00 165.1 cm [facility] Body weight 2024-01-03 17:27:00 120.203 kg [facility] BMI 2024-01-03 17:27:00 44.10 kg/m2 [facility] Oxygen saturation in Arterial blood by Pulse oximetry 2024-01-03 17:27:00 99 /min [facility] Systolic blood pressure 2023-12-24 17:35:00 118 mm[Hg] [facility] Diastolic blood pressure 2023-12-24 17:35:00 80 mm[Hg] [facility] Heart rate 2023-12-24 17:35:00 90 /min [facility] Respiratory rate 2023-12-24 17:35:00 15 /min [facility] Oxygen saturation in Arterial blood by Pulse oximetry 2023-12-24 17:35:00 96 /min [facility] Body temperature 2023-12-24 17:05:[address] [facility] Body height 2023-12-24 16:37:00 165.1 cm [facility] Body weight 2023-12-24 16:37:00 122.154 kg [facility] BMI 2023-12-24 16:37:00 44.81 kg/m2 [facility] Systolic blood pressure 2023-12-24 17:05:00 100 mm[Hg] [facility] Diastolic blood pressure 2023-12-24 17:05:00 56 mm[Hg] [facility] Heart rate 2023-12-24 17:05:00 89 /min [facility] Body temperature 2023-12-24 17:05:[address] [facility] Respiratory rate 2023-12-24 17:05:00 16 /min [facility] Oxygen saturation in Arterial blood by Pulse oximetry 2023-12-24 17:05:00 94 /min [facility] Body height 2023-12-24 16:37:00 165.1 cm [facility] Body weight 2023-12-24 16:37:00 122.154 kg [facility] BMI 2023-12-24 16:37:00 44.81 kg/m2 [facility] Systolic blood pressure 2023-11-27 19:10:00 111 mm[Hg] [facility] Diastolic blood pressure 2023-11-27 19:10:00 76 mm[Hg] [facility] Heart rate 2023-11-27 19:10:00 111 /min [facility] Respiratory rate 2023-11-27 19:10:00 18 /min [facility] Body height 2023-11-27 19:10:00 165.1 cm [facility] Body weight 2023-11-27 19:10:00 124.286 kg [facility] BMI 2023-11-27 19:10:00 45.60 kg/m2 [facility] Systolic blood pressure 2023-11-26 20:40:00 112 mm[Hg] [facility] Diastolic blood pressure 2023-11-26 20:40:00 74 mm[Hg] [facility] Heart rate 2023-11-26 20:40:00 103 /min [facility] Body temperature 2023-11-26 20:40:[address] [facility] Body height 2023-11-26 20:40:00 165.1 cm [facility] Body weight 2023-11-26 20:40:00 123.923 kg [facility] BMI 2023-11-26 20:40:00 45.46 kg/m2 [facility] Systolic blood pressure 2023-11-22 18:07:00 134 mm[Hg] [facility] Diastolic blood pressure 2023-11-22 18:07:00 89 mm[Hg] [facility] Heart rate 2023-11-22 18:07:00 126 /min [facility] Body temperature 2023-11-22 18:07:[address] [facility] Respiratory rate 2023-11-22 18:07:00 18 /min [facility] Body height 2023-11-22 18:07:00 165.1 cm [facility] Body weight 2023-11-22 18:07:00 125.102 kg [facility] BMI 2023-11-22 18:07:00 45.90 kg/m2 [facility] Oxygen saturation in Arterial blood by Pulse oximetry 2023-11-22 18:07:00 98 /min [facility] Systolic blood pressure 2023-11-19 14:38:00 127 mm[Hg] [facility] Diastolic blood pressure 2023-11-19 14:38:00 86 mm[Hg] [facility] Heart rate 2023-11-19 14:38:00 107 /min [facility] Body temperature 2023-11-19 14:38:[address] [facility] Respiratory rate 2023-11-19 14:38:00 18 /min [facility] Body height 2023-11-19 14:38:00 165.1 cm [facility] Body weight 2023-11-19 14:38:00 123.741 kg [facility] BMI 2023-11-19 14:38:00 45.40 kg/m2 [facility] Oxygen saturation in Arterial blood by Pulse oximetry 2023-11-19 14:38:00 98 /min [facility] Systolic blood pressure 2023-11-18 16:30:00 156 mm[Hg] [facility] Diastolic blood pressure 2023-11-18 16:30:00 113 mm[Hg] [facility] Heart rate 2023-11-18 16:30:00 88 /min [facility] Respiratory rate 2023-11-18 16:30:00 18 /min [facility] Oxygen saturation in Arterial blood by Pulse oximetry 2023-11-18 16:30:00 98 /min [facility] Body temperature 2023-11-18 10:28:[address] [facility] Body height 2023-11-18 10:27:00 165.1 cm [facility] Body weight 2023-11-18 10:27:00 122.471 kg [facility] BMI 2023-11-18 10:27:00 44.93 kg/m2 [facility] Systolic blood pressure 2023-11-08 20:00:00 123 mm[Hg] [facility] Diastolic blood pressure 2023-11-08 20:00:00 91 mm[Hg] [facility] Respiratory rate 2023-11-08 20:00:00 17 /min [facility] Heart rate 2023-11-08 19:00:00 75 /min [facility] Oxygen saturation in Arterial blood by Pulse oximetry 2023-11-08 19:00:00 100 /min [facility] Body temperature 2023-11-08 17:00:[address] [facility] Body height 2023-11-08 15:16:00 165.1 cm [facility] Body weight 2023-11-08 15:16:00 122.471 kg [facility] BMI 2023-11-08 15:16:00 44.93 kg/m2 [facility] Systolic blood pressure 2023-08-06 19:07:00 135 mm[Hg] [facility] Diastolic blood pressure 2023-08-06 19:07:00 93 mm[Hg] [facility] Heart rate 2023-08-06 19:04:00 81 /min [facility] Body temperature 2023-08-06 19:04:[address] [facility] Respiratory rate 2023-08-06 19:04:00 18 /min [facility] Body height 2023-08-06 19:04:00 165.1 cm [facility] Body weight 2023-08-06 19:04:00 140.66 kg [facility] BMI 2023-08-06 19:04:00 51.60 kg/m2 [facility] Oxygen saturation in Arterial blood by Pulse oximetry 2023-08-06 19:04:00 100 /min [facility] Systolic blood pressure 2023-06-21 16:24:00 156 mm[Hg] [facility] Diastolic blood pressure 2023-06-21 16:24:00 98 mm[Hg] [facility] Heart rate 2023-06-21 16:24:00 94 /min [facility] Body temperature 2023-06-21 16:24:[address] [facility] Respiratory rate 2023-06-21 16:24:00 16 /min [facility] Body height 2023-06-21 16:24:00 165.1 cm [facility] Body weight 2023-06-21 16:24:00 127.007 kg [facility] BMI 2023-06-21 16:24:00 46.59 kg/m2 [facility] Oxygen saturation in Arterial blood by Pulse oximetry 2023-06-21 16:24:00 100 /min [facility] Systolic blood pressure 2023-01-24 20:58:00 132 mm[Hg] [facility] Diastolic blood pressure 2023-01-24 20:58:00 96 mm[Hg] [facility] Heart rate 2023-01-24 20:56:00 95 /min [facility] Body temperature 2023-01-24 20:56:[address] [facility] Respiratory rate 2023-01-24 20:56:00 18 /min [facility] Body height 2023-01-24 20:56:00 165.1 cm [facility] Body weight 2023-01-24 20:56:00 138.937 kg [facility] BMI 2023-01-24 20:56:00 50.97 kg/m2 [facility] Oxygen saturation in Arterial blood by Pulse oximetry 2023-01-24 20:56:00 100 /min [facility] Systolic blood pressure 2022-12-25 19:43:00 131 mm[Hg] [facility] Diastolic blood pressure 2022-12-25 19:43:00 86 mm[Hg] [facility] Heart rate 2022-12-25 19:43:00 72 /min [facility] Body temperature 2022-12-25 19:43:[address] [facility] Respiratory rate 2022-12-25 19:43:00 16 /min [facility] Body height 2022-12-25 19:43:00 165.1 cm [facility] Body weight 2022-12-25 19:43:00 138.347 kg [facility] BMI 2022-12-25 19:43:00 50.75 kg/m2 [facility] Oxygen saturation in Arterial blood by Pulse oximetry 2022-12-25 19:43:00 99 /min [facility] Systolic blood pressure 2022-01-20 20:03:00 135 mm[Hg] [facility] Diastolic blood pressure 2022-01-20 20:03:00 87 mm[Hg] [facility] Heart rate 2022-01-20 20:03:00 87 /min [facility] Body temperature 2022-01-20 20:03:[address] [facility] Respiratory rate 2022-01-20 20:03:00 17 /min [facility] Body height 2022-01-20 20:03:00 165.1 cm [facility] Body weight 2022-01-20 20:03:00 118.706 kg [facility] BMI 2022-01-20 20:03:00 43.55 kg/m2 [facility] Systolic blood pressure 2021-12-22 13:14:00 125 mm[Hg] [facility] Diastolic blood pressure 2021-12-22 13:14:00 86 mm[Hg] [facility] Heart rate 2021-12-22 13:14:00 96 /min [facility] Body temperature 2021-12-22 13:14:[address] [facility] Respiratory rate 2021-12-22 13:14:00 20 /min [facility] Body height 2021-12-22 13:14:00 165.1 cm [facility] Body weight 2021-12-22 13:14:00 108.41 kg [facility] BMI 2021-12-22 13:14:00 39.77 kg/m2 [facility] Systolic blood pressure 2021-11-29 12:00:00 142 mm[Hg] [facility] Diastolic blood pressure 2021-11-29 12:00:00 87 mm[Hg] [facility] Heart rate 2021-11-29 12:00:00 79 /min [facility] Body temperature 2021-11-29 12:00:[address] [facility] Respiratory rate 2021-11-29 12:00:00 18 /min [facility] Oxygen saturation in Arterial blood by Pulse oximetry 2021-11-29 12:00:00 100 /min [facility] Body height 2021-11-26 08:32:00 165.1 cm [facility] Body weight 2021-11-26 08:32:00 114.034 kg [facility] BMI 2021-11-26 08:32:00 41.84 kg/m2 [facility] Systolic blood pressure 2021-11-23 14:45:00 133 mm[Hg] [facility] Diastolic blood pressure 2021-11-23 14:45:00 102 mm[Hg] [facility] Heart rate 2021-11-23 14:42:00 77 /min [facility] Body temperature 2021-11-23 14:42:[address] [facility] Respiratory rate 2021-11-23 14:42:00 18 /min [facility] Body height 2021-11-23 14:42:00 165.1 cm [facility] Body weight 2021-11-23 14:42:00 114.17 kg Univ [facility] BMI 2021-11-23 14:42:00 41.89 kg/m2 Univ [facility] Systolic blood pressure 2021-11-11 15:03:00 120 mm[Hg] [facility] Diastolic blood pressure 2021-11-11 15:03:00 82 mm[Hg] [facility] Heart rate 2021-11-11 14:58:00 105 /min [facility] Body temperature 2021-11-11 14:57:[address] [facility] Respiratory rate 2021-11-11 14:57:00 18 /min [facility] Body height 2021-11-11 14:57:00 165.1 cm Univ [facility] Body weight 2021-11-11 14:57:00 113.541 kg Univ [facility] BMI 2021-11-11 14:57:00 41.65 kg/m2 Univ [facility] Systolic blood pressure 2021-10-27 23:55:00 129 mm[Hg] [facility] Diastolic blood pressure 2021-10-27 23:55:00 76 mm[Hg] [facility] Heart rate 2021-10-27 23:55:00 88 /min [facility] Oxygen saturation in Arterial blood by Pulse oximetry 2021-10-27 23:55:00 96 /min [facility] Body temperature 2021-10-27 23:14:[address] [facility] Respiratory rate 2021-10-27 23:14:00 18 /min [facility] Body height 2021-10-27 22:26:00 165.1 cm Univ [facility] Body weight 2021-10-27 22:26:00 111.131 kg Univ [facility] BMI 2021-10-27 22:26:00 40.77 kg/m2 Univ [facility] Systolic blood pressure 2021-10-27 18:08:00 140 mm[Hg] Andale o [facility] Diastolic blood pressure 2021-10-27 18:08:00 94 mm[Hg] Andale o [facility] Heart rate 2021-10-27 18:07:00 88 /min [facility] Body temperature 2021-10-27 18:07:[address] [facility] Respiratory rate 2021-10-27 18:07:00 18 /min [facility] Body weight 2021-10-27 18:07:00 110.224 kg [facility] BMI 2021-10-27 18:07:00 40.44 kg/m2 [facility] Procedures Procedure Date / Time Performed Performing Clinician Source CT ABDOMEN PELVIS W CONTRAST 2024-02-22 07:32:[address] [facility] POCT TEST 2024-02-22 06:51:[address] [facility] URINALYSIS 2024-02-22 06:48:[address] [facility] LIPASE 2024-02-22 06:08:[address] [facility] COMP. METABOLIC PANEL (58257) 2024-02-22 06:08:[address] [facility] CBC WITH DIFF 2024-02-22 06:08:[address] [facility] POCT TEST 2024-01-29 16:18:[address] [facility] POCT TEST 2024-01-29 16:18:[address] [facility] [id number] - [place] LAPAROSCOPY SURG CHOLECYSTECTOMY 2024-01-29 16:15:[address] [facility] POCT TEST 2024-01-12 10:32:[address] [facility] LIPASE 2024-01-12 10:06:[address] [facility] COMP. METABOLIC PANEL ([id number]) 2024-01-12 10:06:[address] [facility] CBC WITH DIFF 2024-01-12 10:06:[address] [facility] EGD (ENDO) 2023-12-24 17:08:[address] [facility] EGD (ENDO) 2023-12-24 17:08[facility] 2023-12-24 16:57:[address] [facility] ESOPHAGOGASTRODUODENOSCOPY 2023-12-24 16:36:[address] [facility] US OVARY TORSION 2023-11-18 16:33:[address] [facility] URINALYSIS 2023-11-18 15:15:[address] [facility] CT ABDOMEN PELVIS W CONTRAST 2023-11-18 13:38:[address] [facility] LIPASE 2023-11-18 11:10:[address] [facility] TEST, SERUM 2023-11-18 11:10:[address] [facility] COMP. METABOLIC PANEL ([id number]) 2023-11-18 11:10:[address] [facility] CBC WITH DIFF 2023-11-18 11:10:[address] [facility] COMP. METABOLIC PANEL ([id number]) 2023-11-08 16:43:00 [facility] 2023-11-[facility] 16:01:[address] [facility] CBC WITH DIFF 2023-11-08 16:01:00 [facility] 2023-11-08 16:01:00 [facility]ame [facility] POCT TEST 2023-11-08 16:01:00 Maame [facility] ZINC, SERUM 2023-08-06 19:42:[address] [facility] VITAMIN B6, PLASMA 2023-08-06 19:42:00 Obi-Franklin, [facility] FREE T4 2023-08-06 19:42:00 [facility] THYROID STIMULATING HORMONE 2023-08-06 19:42:00 [facility] COMP. METABOLIC PANEL ([id number]) 2023-08-06 19:[facility] CBC WITH DIFF 2023-08-06 19:42:00 [facility] GLYCOSYLATED HEMOGLOBIN (A1C) 2023-08-06 19:42:00 [facility] VITAMIN D, 25-OH 2023-08-06 19:42:00 [facility] FREE T3 2023-08-06 19:42:00 [facility] POCT TEST 2023-06-21 16:30:[address] [facility] URINALYSIS 2023-06-21 16:29:[address] [facility] INSURANCE CORRESPONDENCE 2023-01-15 06:01:00 Doctor Unassigned, Elsa [facility] INSURANCE CORRESPONDENCE 2023-01-06 06:01:00 Doctor Unassigned, Elsa [facility] GARDASIL 9 (HPV 9V) VACCINE 2022-12-25 20:04:37 [facility] POCT TEST 2022-01-20 20:18:[address] [facility] DME/SUPPLY JUSTIFICATION 2022-01-03 06:01:00 Doctor Unassigned, Elsa [facility] CBC WITH DIFF 2021-11-28 08:48:00 Adum, Vanessa Cowan [facility] CENTRAL NEURAXIAL BLOCK 2021-11-26 20:52:[address] [facility] HB ABO GROUPING 2021-11-26 09:30:00 Adum, Vanessa Cowan [facility] LACTATE DEHYDROGENASE 2021-11-26 09:29:00 Adum, Vanessa Cowan [facility] URIC ACID 2021-11-26 09:29:00 Adum, Vanessa Cowan [facility] COMP. METABOLIC PANEL ([id number]) 2021-11-26 09:29:00 Adum, Vanessa Cowan [facility] URINE DRUG (IMMUNOASSAY) - COMPREHENSIVE DRUG SCREEN 2021-11-26 09:29:00 Adum, Vanessa Cowan [facility] CBC WITH DIFF 2021-11-26 09:29:00 Adum, Vanessa Cowan [facility] URINALYSIS 2021-11-26 09:29:00 Adum, Vanessa [facility] HEPATITIS B SURFACE ANTIGEN 2021-11-26 09:29:00 Adum, [facility] ADC OR THOMPSON ONLY - RPR 2021-11-26 09:29:00 Adum, Vanessa [facility] HIV 1/2 AG-AB WITH REFLEX 2021-11-26 09:29:00 Adum, Vanessa [facility] CONSENT/REFUSAL FOR DIAGNOSI S AND TREATMENT 2021-11-26 08:08:59 Doctor Unassigned, Elsa [facility] POCT URINALYSIS 2021-11-23 14:56:[address] [facility] POCT URINALYSIS 2021-11-11 14:58:[address] [facility] CONSENT/REFUSAL FOR DIAGNOSI S AND TREATMENT 2021-10-27 22:13:12 Doctor Unassigned, Elsa [facility] POCT URINALYSIS 2021-10-27 18:21:[address] [facility] Encounters Start Date/Time End Date/Time Encounter Type Admission Type Attending [facility] Care Facility Care Department Encounter ID Source 2024-05-28 10:40:00 2024-05-28 10:40:00 Outpatient R OBI-JESS REID OBI-JESS RIED [facility] [id number] [facility] 2024-03-10 00:00:00 2024-03-10 23:21:57 [facility] 1.2.840.114 350.1.13.10 4.2.7.2.686 [id number] 044 [id number] [facility] 2024-03-07 00:00:00 2024-03-08 10:28:33 Telephone Jeimy [facility] BU[facility] 1.2.840.114 350.1.13.10 4.2.7.2.686 [id number] 044 [id number] [facility] 2024-03-06 14:15:00 2024-03-06 14:15:00 Outpatient EVA DODGE [facility] [id number] [facility] 2024-03-05 00:00:00 2024-03-06 09:29:39 Telephone Jeimy [facility] 1.2.840.114 350.1.13.10 4.2.7.2.686 [id number] 044 [id number] [facility] 2024-03-04 00:00:00 2024-03-05 15:00:39 Patient Secure Msg Jeimy [facility] 1.2.840.114 350.1.13.10 4.2.7.2.686 [id number] 044 [id number] [facility] 2024-03-04 00:00:00 2024-03-04 14:51:37 Telephone Jeimy [facility] 1.2.840.114 350.1.13.10 4.2.7.2.686 [id number] 044 [id number] [facility] 2024-02-28 00:00:00 2024-03-03 16:59:48 [facility]phone [facility] 1.2.840.114 350.1.13.10 4.2.7.2.686 [id number] 044 [id number] [facility] 2024-02-28 00:00:00 2024-02-28 13:24:25 Telephone [facility] 1.2.840.114 350.1.13.10 4.2.7.2.686 [id number] 044 [id number] [facility] 2024-02-27 00:00:00 2024-02-27 15:55:52 [facility] 1.2.840.114 350.1.13.10 4.2.7.2.686 [id number] 044 [id number] [facility] 2024-02-27 10:40:00 2024-02-27 11:10:59 Outpatient R OBI-FRANKLIN , [facility] OBI-FRANKLIN [facility] [id number] [facility] 2024-02-27 10:40:00 2024-02-27 11:10:59 Office Visit [facility]Franklin [facility] 1.2.840.114 350.1.13.10 4.2.7.2.686 [id number] 044 [id number] [facility] 2024-02-22 00:00:00 2024-02-22 13:47:53 Telephone ObiMalaika [facility] 1.2.840.114 350.1.13.10 4.2.7.2.686 [id number] 044 [id number] [facility] 2024-02-21 23:55:00 2024-02-22 02:59:00 Emergency X SHORTY ZAMBRANO ERICCA [facility] [id number] [facility] 2024-02-21 23:55:00 2024-02-22 02:59:00 Emergency Shorty [facility] 1.2.840.114 350.1.13.10 4.2.7.2.686 [id number] [id number] [facility] 2024-02-21 00:00:00 2024-02-21 08:19:30 Telephone E-nterviewFranklin [facility] BU[facility] 1.2.840.114 350.1.13.10 4.2.7.2.686 [id number] 044 [id number] [facility] 2024-02-11 00:00:00 2024-02-13 09:13:13 Telephone Eva Bryan [facility] 1.2.840.114 350.1.13.10 4.2.7.2.686 [id number] [facility] 2024-02-11 00:00:00 2024-02-11 13:15:26 Patient Secure Msg [facility] 1.2.840.114 350.1.13.10 4.2.7.2.686 [id number] [facility] 2024-02-11 00:00:00 2024-02-11 12:46:06 Refill E-nterviewFranklin [facility] BU[facility] 1.2.840.114 350.1.13.10 4.2.7.2.686 [id number] 044 [id number] [facility] 2024-02-08 00:00:00 2024-02-08 14:40:57 Telephone Eva Bryan [facility] 1.2.840.114 350.1.13.10 4.2.7.2.686 [id number] [facility] 2024-02-07 00:00:00 2024-02-08 14:24:51 Patient Secure Msg Eva Bryan [facility] PROFESSIO NAL BUILDING 1.2.840.114 350.1.13.10 4.2.7.2.686 [id number] [facility] 2024-01-30 00:00:00 2024-01-31 08:09:51 Telephone Eva Bryan [facility] 1.2.840.114 350.1.13.10 4.2.7.2.686 [id number] [facility] 2024-01-29 08:46:00 2024-01-29 14:10:00 Outpatient R EV[facility] [place] [id number] [facility] 2024-01-29 08:46:00 2024-01-29 14:10:00 Hospital Encounter Eva [facility] 1.2.840.114 350.1.13.10 4.2.7.2.686 [id number] 071 [id number] [facility] 2024-01-29 10:00:00 2024-01-29 12:35:00 Surgery Eva Bryan [facility] 1.2.840.114 350.1.13.10 4.2.7.2.686 [id number] [facility] 2024-01-25 00:00:00 2024-01-28 13:50:46 Refill Jess Munson [facility]ESSIO [facility] 1.2.840.114 350.1.13.10 4.2.7.2.686 [id number] 044 [id number] [facility] 2024-01-12 03:54:00 2024-01-12 05:48:00 Emergency X CARO BAUER WAKILI [facility] E[facility] [id number] [facility] 2024-01-12 03:54:00 2024-01-12 05:48:00 Emergency Caro Bauer [facility] AT [facility] 1.2.840.114 350.1.13.10 4.2.7.2.686 [id number] 084 [id number] [facility] 2024-01-11 00:00:00 2024-01-11 12:50:05 Patient Secure Msg Obi-Franklin [facility] PROFESSIO NAL BUILDING 1.2.840.114 350.1.13.10 4.2.7.2.686 [id number] [id number] [facility] 2024-01-10 00:00:00 2024-01-11 05:46:35 Patient Secure Msg Arun-Franklin [facility] NAL BUILDING 1.2.840.114 350.1.13.10 4.2.7.2.686 [id number] 044 [id number] [facility] 2024-01-07 11:15:00 2024-01-07 12:06:32 Outpatient R EVA BRYAN [facility] [id number] [facility] 2024-01-07 11:15:00 2024-01-07 12:06:32 Office Visit Eva Bryan [facility] BU[facility] 1.2.840.114 350.1.13.10 4.2.7.2.686 [id number] [facility] 2023-11-30 00:00:00 2024-01-05 18:24:03 Patient Secure Msg Obi-Franklin [facility] PROFESSIO NAL BUILDING 1.2.840.114 350.1.13.10 4.2.7.2.686 [id number] 044 [id number] [facility] 2024-01-03 11:00:00 2024-01-03 11:41:02 Outpatient R JESS MUNSON [facility] [id number] [facility] 2024-01-03 11:00:00 2024-01-03 11:41:02 [facility] PROFESSIO NAL BUILDING 1.2.840.114 350.1.13.10 4.2.7.2.686 [id number] 044 [id number] [facility] 2024-01-02 00:00:00 2024-01-02 08:01:22 [facility] 1.2.840.114 350.1.13.10 4.2.7.2.686 [id number] 044 [id number] [facility] 2023-12-25 00:00:00 2023-12-27 05:31:52 Refill [facility]Malaika [facility] 1.2.840.114 350.1.13.10 4.2.7.2.686 [id number] 044 [id number] [facility] 2023-12-25 00:00:00 2023-12-25 12:23:25 Refill Yann Nayak [facility] 1.2.840.114 350.1.13.10 4.2.7.2.686 [id number] [id number] [facility] 2023-12-24 00:00:00 2023-12-24 16:00:22 Patient Secure Yisel Steen [facility] 1.2.840.114 350.1.13.10 4.2.7.2.686 [id number] [id number] [facility] 2023-12-24 09:50:00 2023-12-24 11:47:00 Outpatient R YISEL HART [facility] G[facility] [id number] [facility] 2023-12-24 09:50:00 2023-12-24 11:47:00 Hospital Encounter Yisel Hart [facility] 1..840.114 350.1.13.10 4.2.7.2.686 [id number] [facility] 2023-12-24 10:45:00 2023-12-24 11:15:00 Surgery Yisel Hart [facility] 1..840.114 350.1.13.10 4.2.7.2.686 [id number] [id number] [facility] 2023-12-18 14:30:00 2023-12-18 14:30:00 Outpatient R KONRAD ORDOÑEZ OGECHUKWU [facility] [id number] [facility] 2023-12-18 13:00:00 2023-12-18 13:00:00 Outpatient R [facility]BI[facility]ESS [facility] [id number] 2023-12-17 00:00:00 2023-12-18 11:14:39 [facility] 1..840.114 350.1.13.10 4.2.7.2.686 [id number] 044 [id number] [facility] 2023-12-12 08:40:00 2023-12-12 08:40:00 Outpatient R OBI-JESS REID [facility] [id number] [facility] 2023-12-07 00:00:00 2023-12-10 08:32:14 [facility] 1.2840.114 350.1.13.10 4.2.7.2.686 [id number] 044 [id number] [facility] 2023-11-30 00:00:00 2023-12-04 09:32:31 Patient Secure Msg Tianna Mei [facility] 1.2840.114 350.1.13.10 4.2.7.2.686 [id number] [id number] [facility] 2023-11-30 15:45:00 2023-11-30 15:45:00 Outpatient R ISAAC SHAY [facility] [id number] [facility] 2023-11-27 14:00:00 2023-11-27 14:37:01 Outpatient R VANESSA LEYVA VIVIAN [facility] [id number] [facility] 2023-11-27 14:00:00 2023-11-27 14:37:01 Office Visit Vanessa Leyva [facility] 1.20.114 350.1.13.10 4.2.7.2.686 [id number] [facility] 2023-11-26 15:00:00 2023-11-26 15:30:00 Office Visit Jose De [facility] 1.2840.114 350.1.13.10 4.2.7.2.686 [id number] [facility] 2023-11-26 15:00:00 2023-11-26 15:00:00 Outpatient R JOSE DE JESUS MEDINA VIEN [facility] [id number] [facility] 2023-11-22 13:00:00 2023-11-22 13:30:00 Office Visit Tianna Mei [facility] 1.20.114 350.1.13.10 4.2.7.2.686 [id number] 071 [id number] [facility] 2023-11-22 13:00:00 2023-11-22 13:00:00 Outpatient R TIANNA MEI ASHLEY [facility] [id number] [facility] 2023-11-20 10:00:00 2023-11-20 10:00:00 Outpatient R [facility] [id number] [facility] 2023-11-19 10:30:00 2023-11-19 10:30:00 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 Visit 2, Adc Lab Obi-FranklinJess arceo 2, [facility] 1.2.840.114 350.1.13.10 4.2.7.2.686 [id number] [facility] 2023-11-19 09:40:00 2023-11-19 10:03:53 Outpatient R OBI-FRANKLIN JESS OBI-FRANKLIN , JESS [facility] [id number] [facility] 2023-11-19 09:40:00 2023-11-19 10:03:53 Office Visit Obi-FranklinJess arceo [facility] 1.2.840.114 350.1.13.10 4.2.7.2.686 [id number] [id number] [facility] 2023-11-15 00:00:00 2023-11-18 18:57:29 Refill Obi-Franklin Jess [facility] 1.2.840.114 350.1.13.10 4.2.7.2.686 [id number] 044 [id number] [facility] 2023-11-16 00:00:00 2023-11-18 18:53:00 Refill Obi-Franklin Jess [facility] 1.2.840.114 350.1.13.10 4.2.7.2.686 [id number] 044 [id number] [facility] 2023-11-18 05:34:00 2023-11-18 13:08:00 Emergency La SIMMS KELLY THORNTON [facility] [id number] [facility] 2023-11-18 05:34:00 2023-11-18 13:08:00 Emergency Caro Bauer Kelly Simms [facility] 1.2.840.114 350.1.13.10 4.2.7.2.686 [id number] [facility] 2023-11-08 10:16:00 2023-11-08 16:16:00 Emergency TIFF VILLAFUERTE TIFF ISABEL [facility] [id number] [facility] 2023-11-08 10:16:00 2023-11-08 16:16:00 Emergency Tiff Isabel [facility] 1.2.840.114 350.1.13.10 4.2.7.2.686 [id number] [facility] 2023-10-16 00:00:00 2023-10-19 05:44:04 [facility] 1.2.840.114 350.1.13.10 4.2.7.2.686 [id number] 044 [id number] [facility] 2023-10-15 00:00:00 2023-10-16 10:48:03 Refill Jeimy [facility] PROFESSIO NAL BUILDING 1.2.840.114 350.1.13.10 4.2.7.2.686 [id number] 044 [id number] [facility] 2023 09:40:00 2023 09:40:00 Outpatient R ANGELO MUNSONMA OBI-FRANKLIN , JESS [facility] [id number] [facility] 2023-10-01 00:00:00 2023-10-03 15:28:49 Refill Obi[facility]Frank[facility] 1.2.840.114 350.1.13.10 4.2.7.2.686 [id number] [facility] 2023-09-12 00:00:00 2023-09-13 13:09:32 Refill Obi-Franklin [facility] BUILDING 1.2.840.114 350.1.13.10 4.2.7.2.686 [id number] [facility] 2023-09-05 10:40:00 2023-09-05 10:40:00 Outpatient R OBI[facility]FRANKLIN , [facility] [id number] 2023-08-13 14:40:00 2023-08-13 14:40:00 Outpatient R OBI-FRANKLIN , JESS [facility] [id number] [facility] 2023-08-06 14:30:00 2023-08-06 15:25:53 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 Visit 2, [facility] 1.2.840.114 350.1.13.10 4.2.7.2.686 [id number] [facility] 2023-08-06 14:30:00 2023-08-06 14:30:00 Outpatient R OBI-FRANKLIN , JESS [facility] [id number] [facility] 2023-08-06 13:40:00 2023-08-06 14:29:31 Office Visit Jess Munson [facility] PROFESSIO NAL BUILDING 1.2.840.114 350.1.13.10 4.2.7.2.686 [id number] [facility] 2023-08-06 08:40:00 2023-08-06 08:40:00 Outpatient R [facility] [id number] [facility] 2023-07-31 00:00:00 2023-08-01 12:29:54 [facility] 1.2.840.114 350.1.13.10 [id number] [id number] 044 [id number] [facility] 2023-07-31 00:00:00 2023-07-31 18:10:27 Refill Jeimy [facility] BUILDING 1.2.840.114 350.1.13.10 4.2.7.2.686 [id number] 044 [id number] [facility] 2023-07-30 00:00:00 2023-07-31 09:10:12 Patient Secure Msg Jeimy [facility] BUILDING 1.2.840.114 350.1.13.10 4.2.7.2.686 [id number] 044 [id number] [facility] 2023-07-25 00:00:00 2023-07-25 09:15:22 Refill Jeimy [facility] NAL BUILDING 1.2.840.114 350.1.13.10 4.2.7.2.686 [id number] 044 [id number] [facility] 2023-05-29 00:00:00 2023-06-30 18:07:42 Patient Secure Msg Obi-Franklin , [facility] BUILD[facility] 1.2.840.114 350.1.13.10 4.2.7.2.686 [id number] [id number] [facility] 2023-06-21 11:31:00 2023-06-21 12:29:00 Emergency X SHIKHA BONITA [facility] [id number] [facility] 2023-06-21 11:31:00 2023-06-21 12:29:00 Emergency Bonita Trivedi Shoaib [facility] 1..840.114 350.1.13.10 4.2.7.2.686 [id number] [facility] 2023-06-18 08:40:00 2023-06-18 08:40:00 Outpatient R OBI-FRANKLIN , JESS OBI-FRANKLIN , JESS [facility] [id number] [facility] 2023-06-12 00:00:00 2023-06-12 00:00:00 Patient Secure M[facility] 1.2.840.114 350.1.13.10 4.2.7.2.686 [id number] 044 [id number] [facility] 2023-06-06 13:00:00 2023-06-06 13:00:00 Outpatient R OBI-FRANKLIN , JESS OBI-FRANKLIN , JESS [facility] [id number] [facility] 2023-05-29 00:00:00 2023-05-29 00:00:00 Refill Obi-Franklin , Jess [facility] 1.2.840.114 350.1.13.10 4.2.7.2.686 [id number] [facility] 2023-04-25 15:00:00 2023-04-25 15:00:00 Outpatient R JESS MUNSON [facility] [id number] [facility] 2023-04-23 00:00:00 2023-04-23 00:00:00 Refill Jeim[facility] BUILDING 1.2.840.114 350.1.13.10 4.2.7.2.686 [id number] [id number] [facility] 2023-04-11 00:00:00 2023-04-11 00:00:00 Refill Jeimy [facility] NAL BUILDING 1.2.840.114 350.1.13.10 4.2.7.2.686 [id number] 044 [id number] [facility] 2023-04-05 00:00:00 2023-04-05 00:00:00 Telephone Jeimy [facility] BUILDING 1.2.840.114 350.1.13.10 4.2.7.2.686 [id number] 044 [id number] [facility] 2023-04-03 00:00:00 2023-04-03 00:00:00 Telephone [facility] 1.2.840.114 350.1.13.10 4.2.7.2.686 [id number] 044 [id number] [facility] 2023-04-03 00:00:00 2023-04-03 00:00:00 Patient [facility] 1.2.840.114 350.1.13.10 4.2.7.2.686 [id number] [id number] [facility] 2023-04-01 00:00:00 2023-04-01 00:00:00 [facility] BUILDING 1.2.840.114 350.1.13.10 4.2.7.2.686 [id number] 044 [id number] [facility] 2023-03-02 00:00:00 2023-03-02 00:00:00 [facility] 1.2.840.114 350.1.13.10 4.2.7.2.686 [id number] 044 [id number] [facility] 2023-02-19 00:00:00 2023-02-19 00:00:00 Refill Obi-Franklin [facility] BUILDING 1.2.840.114 350.1.13.10 4.2.7.2.686 [id number] [id number] [facility] 2023-01-26 00:00:00 2023-01-26 00:00:00 Patient Secure Msg Doctor Unassigned, Elsa [facility] 1.2840.114 350.1.13.10 4.2.7.2.686 [id number] 044 [id number] [facility] 2023-01-24 15:00:00 2023-01-24 15:25:03 Outpatient R OBI-FRANKLINJESS [facility] [id number] [facility] 2023-01-24 15:00:00 2023-01-24 15:25:03 Office [facility] 1.2.840.114 350.1.13.10 4.2.7.2.686 [id number] 044 [id number] [facility] 2023-01-16 00:00:2023-01-16 00:00:00 Refill Obi-Franklin [facility] BUILDING 1.2840.114 350.1.13.10 4.2.7.2.686 [id number] 044 [id number] [facility] 2023-01-15 00:00:00 2023-01-15 00:00:00 Orders Only Doctor Unassigned, Elsa [facility] 1.2.840.114 350.1.13.10 4.2.7.2.686 [id number] [facility] 2023-01-15 00:00:00 2023-01-15 00:00:00 Patient Secure Msg Doctor Unassigned, Elsa [facility] 1.2840.114 350.1.13.10 4.2.7.2.686 [id number] 044 [id number] [facility] 2023-01-08 00:00:00 2023-01-08 00:00:00 Telephone Obi-Franklin [facility] 1.2840.114 350.1.13.10 4.2.7.2.686 [id number] 044 [id number] [facility] 2023-01-06 00:00:00 2023-01-06 00:00:00 Orders Only Doctor Unassigned, Elsa [facility] 1.2840.114 350.1.13.10 4.2.7.2.686 [id number] [facility] 2023-01-05 00:00:00 2023-01-05 00:00:00 Telephone Obi-Franklin [facility] BUILDING 1.2840.114 350.1.13.10 4.2.7.2.686 [id number] 044 [id number] [facility] 2023-01-03 00:00:00 2023-01-03 00:00:00 Telephone Obi-Franklin , Jess [facility] BUILDING 1.2.840.114 350.1.13.10 4.2.7.2.686 [id number] 044 [id number] [facility] 2023-01-01 00:00:00 2023-01-01 00:00:00 Patient Secure Msg Doctor Unassigned, Elsa [facility] BUILDING 1.2.840.114 350.1.13.10 4.2.7.2.686 [id number] 044 [id number] [facility] 2022-12-28 00:00:00 2022-12-28 00:00:00 Patient Secure Msg Jeimy [facility] BUILDING 1.2.840.114 350.1.13.10 4.2.7.2.686 [id number] 044 [id number] [facility] 2022-12-26 00:00:00 2022-12-26 00:00:00 [facility] 1.2.840.114 350.1.13.10 4.2.7.2.686 [id number] 044 [id number] [facility] 2022-12-25 14:45:00 2022-12-25 15:00:00 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 Visit 2, Adc Lab Arun-Jess Reid [facility] 1.2.840.114 350.1.13.10 4.2.7.2.686 [id number] [facility] 2022-12-25 14:00:00 2022-12-25 14:14:40 Outpatient R OBI-FRANKLIN JESS [facility] [id number] [facility] 2022-12-25 14:00:00 2022-12-25 14:14:40 Office Visit Obi-Franklin , Jess [facility] 1.2840.114 350.1.13.10 4.2.7.2.686 [id number] 044 [id number] [facility] 2022-12-19 10:00:00 2022-12-19 10:00:00 Outpatient R OBI-FRANKLIN JESS OBI-FRANKLIN , JESS [facility] [id number] [facility] 2022-07-19 15:30:00 2022-07-19 15:30:00 Outpatient R KAMILA MILAN [facility] [id number] [facility] 2022-04-14 10:00:00 2022-04-14 10:00:00 Outpatient R [facility] [id number] [facility] 2022-01-20 13:00:00 2022-01-20 14:43:14 Outpatient JACINTA DAVIES [facility] [id number] [facility] 2022-01-20 13:00:00 2022-01-20 14:43:14 Office Visit Provider, Meche Harvey Brenda A [facility]IL [facility]ER [facility] MATERNAL & [facility]ILD [facility] 1.840.114 350.1.13.10 4.2.7.2.686 [id number] [facility] 2022-01-16 10:45:00 2022-01-16 10:45:00 Outpatient MECHE SEGURA [facility] [id number] [facility] 2022-01-05 00:00:00 2022-01-05 00:00:00 Encounter 1.2.840.1 51923.1.1 3.104.2.7 .[id number] 1.2.840.114 350.1.13.10 4.2.7.2.696 [id number] [facility] 2022-01-03 00:00:00 2022-01-03 00:00:00 Orders Only Doctor Unassigned, Elsa [facility] 1.0.114 350.1.13.10 4.2.7.2.686 [id number] [facility] 2021-12-29 00:00:00 2021-12-29 00:00:00 Patient Secure g Rodrick Pete [facility] CIVIL DESIGNER [facility] 1..114 350.1.13.10 4.2.7.2.686 [id number] 107 [id number] [facility] 2021-12-22 07:45:00 2021-12-22 08:42:11 Outpatient JACINTA DAVIES [facility] [id number] [facility] 2021-12-22 07:45:00 2021-12-22 08:42:11 Routine Visit Provider, Dylan-Rmchp Jacinta Parra [facility]IVIL DESIGNER [facility] 1..114 350.1.13.10 4.2.7.2.686 [id number] 107 [id number] [facility] 2021-12-03 00:00:00 2021-12-03 00:00:00 Patient Secure Msg Doctor Unassigned, Elsa [facility] 1..114 350.1.13.10 4.2.7.2.686 [id number] 019 [id number] [facility] 2021-11-30 00:00:00 2021-11-30 00:00:00 Patient Secure g Rodrick Pete [facility] 1..114 350.1.13.10 4.2.7.2.686 [id number] 107 [id number] [facility] 2021-11-26 03:26:00 2021-11-29 10:05:00 Inpatient P VANESSA LEYVA [facility] [id number] [facility] 2021-11-26 03:26:00 2021-11-29 10:05:00 Hospital Encounter Vanessa Leyva [facility] 1.2.840.114 350.1.13.10 4.2.7.2.686 [id number] 083 [id number] [facility] 2021-11-26 15:34:00 2021-11-27 08:48:00 Anesthesia Event Wilver Owens [facility] 1.2.840.114 350.1.13.10 4.2.7.2.686 [id number] [id number] [facility] 2021-11-26 10:17:37 2021-11-26 10:17:37 Anesthesia Event Wilver Owens [facility] 1.2.840.114 350.1.13.10 4.2.7.2.686 [id number] [id number] [facility] 2021-11-23 09:45:00 2021-11-23 10:25:58 Outpatient LOVE SANTA EMILY [facility] [id number] [facility] 2021-11-23 09:45:00 2021-11-23 10:25:58 Routine Visit Provider, Ang-Rmchp [facility] Rodrick Pete Emily J. [facility] CIVIL DESIGNER [facility] MATERNAL & CHILD [facility] 1.2.840.114 350.1.13.10 4.2.7.2.686 [id number] 107 [id number] [facility] 2021-11-11 09:45:00 2021-11-11 10:12:23 Routine Visit Rodrick Pete [facility]ER [facility] MATERNAL & [facility]ILD [facility] 1.2.840.114 350.1.13.10 4.2.7.2.686 [id number] 107 [id number] [facility] 2021-11-11 09:45:00 2021-11-11 10:12:23 Outpatient R RODRICK PETE [facility] [id number] [facility] 2021-11-11 00:00:00 2021-11-11 00:00:00 Patient Secure Msg Rodrick Pete [facility] DESIGNER [facility] MATERNAL & [facility] 1.2.840.114 350.1.13.10 4.2.7.2.686 [id number] 107 [id number] [facility] 2021-11-09 00:00:00 2021-11-09 00:00:00 Telephone Rodrick Pete [facility]ER [facility] 1..840.114 350.1.13.10 4.2.7.2.686 [id number] 107 [id number] [facility] 2021-11-07 00:00:00 2021-11-07 00:00:00 Refill Rodrick Pete [facility] CIVIL DESIGNER [facility] 1..840.114 350.1.13.10 4.2.7.2.686 [id number] 107 [id number] [facility] 2021-10-27 17:35:00 2021-10-27 19:05:00 Outpatient X BRENDA VELÁSQUEZ [facility] [id number] [facility] 2021-10-27 17:35:00 2021-10-27 19:05:00 Emergency Brenda Velásquez K Paige [facility] 1.840.114 350.1.13.10 4.2.7.2.686 [id number] [facility] 2021-10-27 12:45:00 2021-10-27 13:34:39 Outpatient R RODRICK PETE [facility] [id number] [facility] 2021-10-27 12:45:00 2021-10-27 13:34:39 Routine Visit Pete, Rodrick Mosquera [facility] CIVIL DESIGNER [facility] 1..114 350.1.13.10 4.2.7.2.686 [id number] 107 [id number] [facility] 2021-10-27 12:45:00 2021-10-27 12:45:00 Outpatient R PETERODRICK [facility] [id number] [facility] 2021-10-27 00:00:00 2021-10-27 00:00:00 Orders Only Doctor Unassigned, Elsa [facility] 1..114 350.1.13.10 4.2.7.2.686 [id number] [facility] 2021-10-26 00:00:00 2021-10-26 00:00:00 Abstract Pete, Roscuauhtemoc [facility] CIVIL DESIGNER [facility] & [facility] 1..114 350.1.13.10 4.2.7.2.686 [id number] 107 [id number] [facility] 2021-10-21 09:45:00 2021-10-21 10:30:00 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 Visit Ultrasound, Vinh Stone [facility]IL DESIGNER [facility] 1..114 350.1.13.10 4.2.7.2.686 [id number] [facility] 2021-10-21 09:45:00 2021-10-21 09:45:00 Outpatient P [facility] [id number] [facility] 2021-10-18 00:00:00 2021-10-18 00:00:00 Patient Secure Msg Doctor Unassigned, Elsa [facility] DESIGNER [facility] 1..114 350.1.13.10 4.2.7.2.686 [id number] 107 [id number] [facility] 2021-10-18 00:00:00 2021-10-18 00:00:00 Telephone Rodrick Pete [facility] CIVIL DESIGNER [facility] 1.84.114 350.1.13.10 4.2.7.2.686 [id number] 107 [id number] [facility] 2021-10-14 08:00:00 2021-10-14 08:34:31 Outpatient R RODRICK PETE [facility] [id number] [facility] 2021-10-14 08:00:00 2021-10-14 08:34:31 Routine Visit Marie Petegloria Demetri [facility]IVIL DESIGNER [facility] 1.840.114 350.1.13.10 4.2.7.2.686 [id number] 107 [id number] [facility] 2021-09-29 10:45:00 2021-09-29 11:39:29 Outpatient R RODRICK PETE [facility] [id number] [facility] 2021-09-29 10:45:00 2021-09-29 11:39:29 Routine Visit Rodrick Pete [facility] CIVIL DESIGNER [facility] 1.840.114 350.1.13.10 4.2.7.2.686 [id number] 107 [id number] [facility] 2021-09-29 10:45:00 2021-09-29 10:45:00 Outpatient R RODRICK PETE [facility] [id number] [facility] 2021-09-16 00:00:00 2021-09-16 00:00:00 Patient Secure Msg Doctor Unassigned, Elsa [facility] 1.84.114 350.1.13.10 4.2.7.2.686 [id number] [facility] 2021-09-16 00:00:00 2021-09-16 00:00:00 Telephone Marie Petegloria Mosquera [facility] CIVIL DESIGNER [facility] MATERNAL & [facility]ILD [facility] 1.0.114 350.1.13.10 4.2.7.2.686 [id number] 107 [id number] [facility] 2021-09-16 00:00:00 2021-09-16 00:00:00 Telephone Marie Petegloria Mosquera [facility] CIVIL DESIGNER [facility] 1.0.114 350.1.13.10 4.2.7.2.686 [id number] 107 [id number] [facility] 2021-09-15 10:45:00 2021-09-15 11:53:13 Outpatient R PETE KIKICUAUHTEMOC [facility] [id number] [facility] 2021-09-15 10:45:00 2021-09-15 11:53:13 Routine Visit HeRodrick [facility] C[facility] DESIGNER [facility] 1.0.114 350.1.13.10 4.2.7.2.686 [id number] 107 [id number] [facility] 2021-09-13 00:00:00 2021-09-13 00:00:00 Refill HeRodrick [facility] 1.84.114 350.1.13.10 4.2.7.2.686 [id number] 107 [id number] [facility] 2021-08-23 08:45:00 2021-08-23 22:46:00 Outpatient X BRENDA VELÁSQUEZ [facility] [id number] [facility] 2021-08-23 08:45:00 2021-08-23 22:46:00 Emergency Martinez, Brenda Avery [facility] 1.84.114 350.1.13.10 4.2.7.2.686 [id number] [id number] [facility] 2021-08-18 10:30:00 2021-08-18 10:44:10 Outpatient R YUSUF PETEELSA [facility] [id number] [facility] 2021-08-18 10:30:00 2021-08-18 10:44:10 Routine Visit Kiki Petecuauhtemoc Mosquera [facility] CIVIL DESIGNER [facility] 1.2.840.114 350.1.13.10 4.2.7.2.686 [id number] 107 [id number] [facility] 2021-08-11 00:00:00 2021-08-11 00:00:00 Patient Secure Msg Kiki Petecuauhtemoc [facility] CIVIL DESIGNER [facility] 1.2.840.114 350.1.13.10 4.2.7.2.686 [id number] 107 [id number] [facility] 2021-08-11 00:00:00 2021-08-11 00:00:00 Kiki Bucknercuauhtemoc [facility] CIVIL DESIGNER [facility] 1.2.840.114 350.1.13.10 4.2.7.2.686 [id number] 107 [id number] [facility] 2021-08-11 00:00:00 2021-08-11 00:00:00 Kiki Bucknercuauhtemoc [facility] CIVIL DESIGNER [facility] 1.2.840.114 350.1.13.10 4.2.7.2.686 [id number] 107 [id number] [facility] 2021-08-11 00:00:00 2021-08-11 00:00:00 Kiki Bucknercuauhtemoc [facility] CIVIL DESIGNER [facility] 1.2.840.114 350.1.13.10 4.2.7.2.686 [id number] 107 [id number] [facility] 2021-08-02 00:00:00 2021-08-02 00:00:00 Abstract Rodrick Pete [facility] CIVIL DESIGNER [facility] 1.284.114 350.1.13.10 4.2.7.2.686 [id number] 107 [id number] [facility] 2021-08-01 00:00:00 2021-08-01 00:00:00 Patient Secure Msg Doctor Unassigned, Elsa [facility] CIVIL DESIGNER [facility] 1.840.114 350.1.13.10 4.2.7.2.686 [id number] 107 [id number] [facility] 2021-07-29 09:30:00 2021-07-29 10:45:00 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 Visit Ultrasound, Giovannam Rodrick Pete Antonio F [facility] 1.840.114 350.1.13.10 4.2.7.2.686 [id number] [facility] 2021-07-29 09:30:00 2021-07-29 09:30:00 Outpatient P [facility] [id number] [facility] 2021-07-29 09:30:00 2021-07-29 09:30:00 Outpatient P MADDIE ROMEO [facility] [id number] [facility] 2021-07-29 08:00:00 2021-07-29 08:36:27 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 Visit Lab, Ang-Rmchp Rodrick Pete [facility] 1.840.114 350.1.13.10 4.2.7.2.686 [id number] 107 [id number] [facility] 2021-07-23 00:00:00 2021-07-23 00:00:00 Patient Secure Msg Doctor Unassigned, Elsa [facility] 1.840.114 350.1.13.10 4.2.7.2.686 [id number] [facility] 2021-07-21 09:00:00 2021-07-21 10:12:55 Outpatient R RODRICK PETE [facility] [id number] [facility] 2021-07-21 09:00:00 2021-07-21 10:12:55 Routine Visit Marie Petegloria Mosquera [facility] CIVIL DESIGNER [facility] MATERNAL & [facility]ILD [facility] 1.84.114 350.1.13.10 4.2.7.2.686 [id number] 107 [id number] [facility] 2021-07-21 09:00:00 2021-07-21 10:12:55 Out[facility] [id number] [facility] 2021-07-21 09:00:00 2021-07-21 09:00:00 Outpatient R RODRICK PETE [facility] [id number] [facility] 2021-07-21 09:00:00 2021-07-21 09:00:00 [facility] [id number] [facility] 2021-07-17 02:36:00 2021-07-17 06:54:00 Emergency [facility] [id number] [facility] 2021-07-17 02:36:00 2021-07-17 06:54:00 Emergency Caro Bauer S [facility] .114 350.1.13.10 4.2.7.2.686 [id number] [facility] 2021-07-12 00:00:00 2021-07-12 00:00:00 Telephone Yusuf Peteelsa [facility] MATERNAL & [facility]ILD [facility] 1..114 350.1.13.10 4.2.7.2.686 [id number] [facility] 2021-07-06 00:00:00 2021-07-06 00:00:00 Telephone Rodrick [facility] 1.2.840.114 350.1.13.10 4.2.7.2.686 [id number] [facility] 2021-06-28 01:26:00 2021-06-29 10:10:00 Outpatient X BRENDA VELÁSQUEZ [facility] [id number] [facility] 2021-06-28 01:26:00 2021-06-29 10:10:00 Emergency Alayna Bear S Didier Brenda [facility] 1.2.840.114 350.1.13.10 4.2.7.2.686 [id number] [facility] 2021-06-27 20:49:00 2021-06-27 20:59:00 Emergency X [facility] [id number] [facility] 2021-06-27 20:49:00 2021-06-27 20:59:00 Emergency [facility] 1.2.840.114 350.1.13.10 4.2.7.2.686 [id number] [facility] 2021-06-24 00:00:00 2021-06-24 00:00:00 Patient Secure Msg Rodrick Pete [facility] 1.2.840.114 350.1.13.10 4.2.7.2.686 [id number] [facility] 2021-06-24 00:00:00 2021-06-24 00:00:00 Telephone Rodrick Pete [facility] 1.2.840.114 350.1.13.10 4.2.7.2.686 [id number] [facility] 2021-06-23 14:00:00 2021-06-23 15:33:45 Outpatient R RODRICK PETE [facility] [id number] [facility] 2021-06-23 14:00:00 2021-06-23 15:33:45 Initial Visit Rodrick Pete Demetri [facility]ERNAL & [facility] 1.2840.114 350.1.13.10 4.2.7.2.686 [id number] [facility] 2021-06-23 14:00:00 2021-06-23 15:33:45 [facility] [id number] 2021-06-23 14:00:00 2021-06-23 15:33:45 [facility] [id number] [facility] 2021-06-23 00:00:00 2021-06-23 00:00:00 Orders Only Doctor Unassigned, Elsa [facility] 1.2.114 350.1.13.10 4.2.7.2.686 [id number] [facility] 2021-06-22 08:04:00 2021-06-22 13:00:00 Emergency X ANGUS DWYER [facility] [id number] [facility] 2021-06-22 08:04:00 2021-06-22 13:00:00 Emergency Angus Dwyer [facility] 1.2840.114 350.1.13.10 4.2.7.2.686 [id number] 084 [id number] [facility] 2021-06-21 22:18:00 2021-06-21 23:26:00 Emergency Caro Bauer [facility] 1.20.114 350.1.13.10 4.2.7.2.686 [id number] 084 [id number] [facility] 2021-06-21 22:18:00 2021-06-21 23:26:00 Emergency X [facility] [id number] [facility] 2021-06-21 22:18:00 2021-06-21 23:26:00 Emergency X [facility] [id number] [facility] 2021-06-11 12:44:00 2021-06-14 18:06:00 Inpatient X MEDINA JOSE DE JESUS [facility] CLEVE [id number] [facility] 2021-06-11 12:44:00 2021-06-14 18:06:00 Hospital Encounter Abdullahi Gomez, Foreign Leyva, Jose De Jesus Vick [facility] 1..840.114 350.1.13.10 4.2.7.2.686 [id number] 083 [id number] [facility] 2021-05-30 23:49:00 2021-06-03 14:41:00 Hospital Encounter Abdullahi Gomez Shannon [facility] 1.2.840.114 350.1.13.10 4.2.7.2.686 [id number] [facility] 2021-05-30 23:49:00 2021-06-03 14:41:00 Inpatient X EDITH TERRY [facility] CLEVE [id number] [facility] Results Test Description Test Time Test Comments [...] abdomen and pelvisdemonstrate no osseous destructive lesion. [facility] METABOLIC PANEL ([id number])2024-02-22 06:46:27* Test Item Value Reference Range Interpretation Comme nts NA (test code = 8282176160) 138 mmol/L 135-145 K (test code = 5396532349) 3.9 mmol/L 3.5-5.0 CL (test code = 1910489247) 104 mmol/L 98-108 CO2 TOTAL (test code = 0627147586) 22 mmol/L 23-31 L AGAP (test code = 9179141720) 12 2-16 BUN (test code = 9574923827) 11 mg/dL 7-23 GLUCOSE (test code = 3440661468) 113 mg/dL 70-110 H CREATININE (test code = 2160-0) 0.50 mg/dL 0.50-1.04 TOTAL BILI (test code = 6270337114) 0.9 mg/dL 0.1-1.1 CALCIUM (test code = 8480033414) 9.5 mg/dL 8.6-10.6 T PROTEIN (test code = 4151378674) 8.5 g/dL 6.3-8.2 H ALBUMIN (test code = 3784645999) 4.8 g/dL 3.5-5.0 ALK PHOS (test code = 8977406763) 81 U/L 34-122 ALTv (test code = 1742-6) 15 U/L 5-35 AST(SGOT) (test code = 9338404536) 21 U/L 13-40 eGFR (test code = 29170-8) 132.0 mL/min/1.73m2 CKD-EPI eGFR (2020). Assuming creatinine has been stable day-to-day for at least three months, the eGFR indicates Category G1 (>= 90 mL/min/1.73 m2) Lab Interpretation (test code = 51014-1) [facility]normal [facility] 06:45:47* Test Item Value Reference Range Interpretation Comme nts LIPASE (test code = 0645090215) 24 U/L 0-220 Lab Interpretation (test cod e = 77428-5) Normal [facility] WITH AUUE5612-38-18 06:27:08* Test Item Value Reference Range Interpretation [...] 33.9 g/dL 31.6-35.1 RDW-SD (test code = 10363-8) 48.3 fL 39.0-49.9 RDW-CV (test code = 788-0) 12.9 % 12.0-15.5 PLT (test code = 777-3) 402 166-358 H MPV (test code = 55673-3) 9.3 fL 9.5-12.9 L NRBC/100 WBC (test code = 6829588109) 0.0 0.0-10.0 NRBC x10^3 (test code = 3401144110) See_Comment [Automated message] The system which generated this result transmitted reference range: 10*3/?L. The reference range was not used to interpret this result as normal/abnormal. GRAN MAT (NEUT) % (test code = 770-8) 89.3 % IMM GRAN % (test code = 6559844464) 0.40 % LYMPH % (test code = 736-9) 7.4 % MONO % (test code = 5905-5) 2.7 % EOS % (test code = 713-8) 0.1 % BASO % (test code = 706-2) 0.1 % GRAN MAT x10^3(ANC) (test code = 6978468732) 12.26 10*3/uL 1.88-7.09 H IMM GRAN x10^3 (test code = 0917500356) 0.06 10*3/uL 0.00-0.06 LYMPH x10^3 (test code = 731-0) 1.02 10*3/uL 1.32-3.29 L MONO x10^3 (test code = 742-7) 0.37 10*3/uL 0.33-0.92 EOS x10^3 (test code = 711-2) 0.03-0.39 L BASO x10^3 (test code = 704-7) 0.01-0.07 Lab Interpretation (test code = 15369-9) Abnormal [facility] Ivim9125-08-83 16:19:00* Test Item Value Reference Range Interpretation Comme nts POCT PREG (test code = 1605) Negative On board controls acceptable with C Line (test code = 3574) Yes POCT PREG LOT # (test code = 3575) [id number] POCT PREG TEST DATE ( test code = 3576) 05/27/2024 [facility] Fico1005-71-47 16:19:00* Test Item Value Reference Range Interpretation Comme nts POCT PREG (test code = 1605) Negative On board controls acceptable with C Line (test code = 3574) Yes POCT PREG LOT # (test code = 3575) [id number] POCT PREG TEST DATE ( test code = 3576) 05/27/2024 [facility] LYPD9582-77-58 10:32:00* Test Item Value Reference Range Interpretation Comme nts POCT PREG (test code = 1605) Negative On board controls acceptable with C Line (test code = 3574) Yes POCT PREG LOT # (test code = 3575) 239083 POCT PREG TEST DATE ( test code = 3576) 2024-11-23 Lab Interpretation (test cod e = 39889-0) Normal [facility] Shlx6673-67-08 16:13:04* Test Item Value Reference Range Interpretation Comme nts Case Report (test code = 2154999513) Surgical Pathology ?Case: [id number] ? Authorizing Provider: ?Yisel Hart MD ?Collected: ? 12/24/2023 1057 ?Ordering Location: ? ? GI Endoscopy OR Department Received: ?12/24/2023 1148 ?Pathologist: ? Brendon Dawson MD PhD ?Specimen: ? ?STOMACH, 1. gastric biopsy ? Final Diagnosis (test code = 0891693072) f7ovkUVzUCFne6tkNRFvpFHwU zEwMzNcZnRuYmpcdWMxIHtccn NgUBurwQkjWAS1CJIbDZ7clJh iuNy7yWppZKRetxN6tWCzTTjk n4daFMO5j1knbzpsJNVoVKgtE j9ipBDgaWgbRgVkOLKtEDb0lE 05PBQmfS4fbCCxUTl8KJStyHW dvtBbBrWrMALutBZrkYZ3WNTr BV5iqwkpLLekOAfnRMQiezL3A KDvxKXcH2NoIGJzIW2bwaotXX N6JVvxOEQjBSJ8PfCuNLRxq2G dlqh6PbBwuZDcPVjifLUmebyt wlCuHBIducPMAwCRBG3JTWDFJ OQAKF3GB1u5FPVjmuuhfEG5JO HlEBcPW1EZASIpCIADY6TUZXl OXZqcWv2lIABNUR2KO9gIJ6NI NLKXTO6AIGehOHNgADDIEcAEV 1WAZzfXMAXMWwDRJoWYB1ADCt AGKL5LWSRNTGFQQMSwTLWBNrX JRklFRFxwYXIgLSBOTyBILiBQ WUxPUkktTElLRSBPUkdBTklTT VMgSURFTlRJRklFRFxwYXJccG KbJPonAVB2v8oqpIUyDFJnkGP xAfHqKNAwZIUcf0jmTVLixHWr ZzEwMzNcZnRuYmpcdWMxXGRlZ wOhs6rey627eYGjx7knNMTkAi N2kNItGNUcfHwukcv3uHefPzO pWTMhm9ojgwPdCiGnZJFcMNPf XTIlkXCyF585CKCkVXzdf9dii 5PcJCLdaXVsf6S4GKFIGKgwJv TpT896l4pad4rngyDdcHW8HCG gBTG5WWbxsaWbgvH8CKtdfCNw YrC2CWlmvvZqIKvfprWpspMvK nt9NEYqY167DXB9dZtoe2gpHB U9WBQxAPMmIfrlBs6iaWBlR42 4CNJwYIAHXRYyeNz8QGUkukCm bmDheBIMn932G087g2boFZSvg iXgeHaKgpvfs1bvJ310WXRpdD KyiyInIzKmQOFmbBBqyDD8ZEF qJW4etlkeSHgcXJitVMJeqwQ3 TXUubMWeE5PoAVDzAT3qoxreQ MP7CQucVPEfJLY2EmRoEXHkw7 Mehyt0LfYrbg5djn03YVV1r2M vyAndGWB6GSS8WjTcJr2ygCNk XIGaAN1mViThyISaSXEwwm52p DokZYccbiBcjF2qUdNtLGNtiR JhPDUuIM8lvIQmINOizN3cyfu jXHBnYnJkcmhlYWRccGdicmRy Rb0vdEwlRZT6KEwbW9vhdA6xM cE1AMxeN4ulqI8hXMt4PRourR Q5OHFaqH6yFV7zdzfhi9tuTBy kRPylYEMotkU4qxY6XDSwwOUo H7VxmJ6sGSWwSH9ehzsvv7mxW MI4DGcoGGPyHXK6CsGyADDjm8 Rkjhc9PeAew4MciPTgZRgcU96 sk099KDZifoMzN0svpUCdsqfb xZPhggsgDLldxiH8PIZnXCUnP WluXGYxXGZzMjBcbGFuZzEwMz NcaGljaFxmMVxkYmNoXGYxXGx fS0zdVnKeS9ElQJFkDiBnmRYm GOujeDL2NDTnNLPgj70oiFu8T FJwksegd5HcBHSpdIDbkGYarQ 2jgiWwb6bqJQUsVWHkVSViW6M vIXE5jJBuTJOnwFAotWO3JV6c klEzVL0vASEnGncjfdKvrPSzj xMvUUKlJQfcg9vqQN8pTDZpdP xbaE5tgJU8AUIhm6ppfUWqcLY jm9log4BqziAmRKgaAEQmOPct QBQmWACgCL9gTMSdqSUmgjOrh 9M1EyrgrCSxrefpMvkbsvZ4RX fsnigaSOCrIMraP0mjGeTbIMS qlVfjEpqbs6LmMMDwMOAlDkev cGFyfX0= Clinical Information (test code = 9887521295) Lanre Bales is a 28 year old femaleHematemesis with nausea [K92.0]Coffee ground emesis [K92.0]Abdominal pain, epigastric [R10.13]1. gastric biopsy eval H pylori Gross Description (test code = 5552468126) e9stcIUiXGUavSFCIWJ1RGBxX K2qcSaxoNu3uJzwKNNfulL5kL HpRJxhd1pmIHN1e2ogcvMRBbe tHUCkOF3nIQaxVQYuTD0oLaMa XGRlZmYxXHBhcGVydzEyMjQwX NZbwYCvhJX8APBrJE5hgslmTN vxTGkhKEQlcrK4XGTccKPbA3P dFMQoIZ8bywjmVLA7DJYNHixd We4clESypEkvQlMtUzSyHVBxQ ZOtPSNtr7eopoIBmoafvCt3mE 8JTRJgC2ZzJJ2Ts9ypXTBiySJ tPTA7RMnbe1lpHWspDCV1XRRl LYMoYTUhIO7OJyGcZJL5XSo7U IIkFtD1OCo5GGFKDGGkIZA6TG Q2CsE1AHy0NYOeGL7gCBqdbZQ rQTcnEpedNJseP931VJyjXGWr F7PnM5PlRFcyKaJnRCneHUDdI GZgXKtxMPLqQ1MMKRUzTWI8HC A9QDEcGJl3WPt6WN7CMjZnTAN cQqd4SoU8QMWvIWn9GPdfCQ3T UXMpEPH2WFcgTpIsMUIhGVWzQ Ty5ASQzYWxvnvBbPObzGtllSF jsC24quXQuCOIJJmotlEXrowh mczIwIFNQRUNJTUVOIEFcbHRy B2jnTkQkGdvvZFTlSOawhJVxX CANClxwbGFpblxsdHJjaFxmcz NqCOVwdRUVFUR7UP5jYNMKOwb zqXGoGJHgYGiCyVPvcJ7syuGC KWehHSDgE0BqzuSpQDhePLRst c9fjLkvSDvcLgGluLWzZQhtjU nurZzjANGynPczcbVfN1K2xnB mGS0qDHKYXCLvoR2uTTShTFHq p4XpfEPsjFjsT9WimINxBzFqx B3gl6ggJ7Y0DUlOUVLyngAnF4 2uf0zdvUVzz7CmGhT3XX6vaTn lxaLdgwOnR9MlSKGlo62dlNE2 pYEcqQOvEhWiM57uwzOfHWyyI aYvMU88BFDjBMwhOZL2LZO9YG LqrHMan6zlkbslXG75MAqdUA0 5LVzrYC4dZGNvDQrtOOPbU9Wd A7A4MEinLBXfEVGfmPColA2es nTyjwNlvSs0NVRdZVL8oOWddG fpNIGxWpzeePQ1QBFqCwBegdD pa4MieNk1kAWlLEvoYJLkrB0t mP0wWFYiABBmzrRVEzhiDYRvZ Uxhf6PrSMsbvDgdAPVgPiGmUT bKjNmfKGQKL8bmiKLsMFxnPWC YCGmAG5WNHA5ZPGJduYUTOWA8 PX2yGThpCYMpJ8HsG1SyfvR0w 9btnWola4FscGKxUA3omGWnHR 2HONLmghLwJHt6 Disclaimer (test code = 2223099613) o5alxQZqARGfa2xsYMNihRRoN zEwMzNcZnRuYmpcdWMxIHtccn DvOIjtk1RmE2ApOkQlTLgelrL nOKXwBluaqvgrKNRiUEM2huOo ZJUgTRltELWuJRnjVt6dwHZcv YxqGpFhKEGba2qzzcSLZPqvRc ZyO350XHPlFWguz7byc4PaCXI rxVFwp5R6MJUCrmjqkFw6vIcx R46ix0Q5TbdwH4qmTZRnLBEnG 9PmQE7kSYVmMpu2XPJ2DHE6WO CoGXZfG3WhRZ2dVRDwpFXrWOm 0e4bgmUvsMJCaPRD2z0bkJSfg osRmCV4org7sxGg2h0jlweSuE OMvELYoxJEQJEOzF6IkwBtsQm 2vlTl9jWldTrdgMOE7Oaj5CY9 xjx57pue0eFpeHDFxoqvnLmH3 GKgsKFXfwbgjKLc0TWryVVCpn QK7IIIydNMiN3QsSTXkUV3wow v5SBJ0IMcdYRVaPaG1EXXoeFJ nTFGzkHyyWRwcj177CIP7OiMx PD2gW1Lzw4I0dI9lrSFaFWOxx CLyCfNdEVSxdf6csFOpUDlrj7 CjUZR7pfA1aXYxxOQwWUJpPI7 3Pjddn7PxFldim2QgQ88okUV6 IWmrg5xnMS3yWiC3tyHhBEfeo 0srpR5hBrM8FCacSW9nSE9rTB DrsG4ncknbWTEnYaKttjrrHEN dlGrtjfBkDh2tfDhzOVP7EXrr C5vpvL3aMwQ8BKseP2fdtU3dO Nl6EPbydNT2UKJmxZ0eAL1qiu ykd8ukUDgqKLdjTLGdtrD7jeH 3HEJlcRIfL2FdqN4cGIViDT3z qehus7ugEBZ4QQmuEUMvULX5Q qOdSUUva6Xdqum5UoBih1FbnE VsYSiqB80pf755BUXjxiYaU6r wbGFpblxwbGFpblxmMFxmczI0 ROIoeaIar8WpFTJtCXD3HSlzT GvtwNOgMZCcgCenl9pcL9WrfM FyXHBsYWluXGYxXGZzMjBcbGF uZzEwMzNcaGljaFxmMVxkYmNo XYDrSQrmB0ltQxCoE8CpJCBlM zUenFDiZ9ptHXqvqqRdEDUtdr BwkLE0PZkiN0d1RYAyftWtcXu 5txSvNjMqECKvCCY8GUzwyNHo UHWto1MvpfsoyZHrUq2vcIUzB ZWkzN2tFXKgMXZdEChaNC6dcE n8FLGGiNCwwANfVaPMXZIjAU8 7ogVoNQGFtraqh4E5AXokALDx f0ZjdSBpL2fio0QvJOMlo37gD O9qg6O3z1mmFVG1QT8rh9UvJQ WxdMCiwEKuKOTbv3Tgmjgty5D eTJVoguRey3RtHYSqgcQoiVGs EEDmszOrnw4htqSeXWYiNKZhB 4CjckaxnBmmwaCcRNPjjz5ued JcDAK9YXDROJGtMLEvo1PhfD5 gbIHJFGV4pFTwhq9znvUZuWPp PCZyil10HQEdAH0sD2kcYGVuP JXgxaVygACgg1SxFPDlcRB6tK JySX3SSpAOm98xHYMtKDGGhsD vWWYrgObwvDS9ksJ6cX4eCXcD REEpLlx+QCLhDYHSZFRxOH1kc kYhz6PxqnUzoMpnTPBdxLSck2 AuuADze0TooEute3TydPTvsRN uAY6fDCWtzytqVFCaIOXVGgKK SRXlccY9a6JlKTHvBIGcEJX7c Cgekok9UDPzhD2uSNUcS5wkju wuQGwhISNzo3BrnM7poVIPzDE jv4JuwBMsrTGZhQVdJC7pffJm ZTkKQMfPARA4syHbHTEmg2ZcG PypD9xjI63vwElwlGf2yBP4SY G9jZ6cBub+IFxwYXJccGFyIEF mcLJjwTKzQYSvcHubnnNpU7Zn bgFvvZ9bfLCuziRoAE4eHS9mX 1F4kHNqBTEpgdDue0ypYBrzkn SeLeGbibVxTBXiQUxtGYYgs9B lOTdyOUZ0NVpftnNrleYntQWv gsgbDFXGDSWWqMUbbUDcJTN9S VlswmTmwlFjOC1koO2puUwtdQ 4tsSGqeWV1aoyhCHStQKOmsXy vMEIrEN5rjQrneY7cGnAkVdDv FSluGW4zRVHiD7mxqAWxBZQgJ CHhK5mwIgSpxV3fmErbSJurZx JcZnMyMFxwYXJccGFyXHBsYWl uXGYxXGZzMjBcbGFuZzEwMzNc aGljaFxmMVxkYmNoXGYxXGxvY 3fiEzOzK9UwXJJjZuPpoXZvQ2 lbEJsjGTF0CSHnAS3ezUCtCU2 7dZXjb3ogITdsrOobrt6sJ29e vDVnMDkzwNzdEUIvu38qd3QrJ XGpqaJtjv5xDSQixnC4xI5cFP LdaQbyYRSfdUTmHDEor5TaYXd naXRpemVkIGdsYXNzIHNsaWRl yaG6lsCgikKrndDjRJPlfQkeX IUbd3ZlWFGxAYzhe9Lyzn0nmV EeKWAwbnXTwQqctYMsvX5bH1Z iMTItQNUuyr7rXJGdfS3nYGqh g0YsiqaePGGyFYCxSKUjryYgc v1xXWZerXPLYS8JPRxuhMByv3 NpyuPcM5yUGTK9HWWxPlLiSma zEHSxxYSzpCJqMARiwe47VPIu dK0ioVgvPSPkfQ8klY6gvShvt I3fScYiDnLsKRgtLM9rYBGdZ5 yrjPHxHVOwPDEsX2wmXmMpjA1 jaFxmMVxjZjJcZnMyMFxwYXJ9 fQ== Embedded Images (test code = 3115857552) [facility] OV[facility] IIZJBTD7379-57-98 16:40:41EXAM: US OVARY TORSION HISTORY: 28 years-old Female; Provided indication: eval for torsion; pelvicpain; bilateral 5.1cm cysts seen on CT . LMP = 4Pregnancy test = Negative. TECHNIQUE: Transabdominal and transvaginal ultrasound imaging and colorDoppler evaluation of the pelvis was performed. Spectral Doppler evaluationof the ovaries was performed. [employer] images were obtained for therecord. COMPARISON: Same [...] arevisualized. Normal flow is seen on color Doppler.[facility] HospitalCT ABDOMEN PELVIS W OGZNEWEJ7355-04-74 14:33:00Indication: Nausea/vomiting ? Comparison: None RL: 4209 [...] soft tissue: No acute osseous abnormality is noted.[facility] HospitalPregnancy Test, Jldsz4372-11-20 11:59:46* Test Item Value Reference Range Interpretation Comme nts PREG SERUM (test code = 2599208534) Negative RUMA (test code = RUMA) Less than 10 IU/L. ?If low titer or ectopic is suspected, resubmit specimen in 48-[address] [facility] Metabolic Jnoad2892-68-77 11:58:40* Test Item Value Reference Range Interpretation Comme nts NA (test code = 7081898933) 138 mmol/L 135-145 K (test code = 3829370143) 3.5 mmol/L 3.5-5.0 CL (test code = 6223279204) 106 mmol/L 98-108 CO2 TOTAL (test code = 4339146509) 23 mmol/L 23-31 AGAP (test code = 5257586425) 9 2-16 BUN (test code = 6352424830) 6 mg/dL 7-23 L GLUCOSE (test code = 2697802345) 122 mg/dL 70-110 H CREATININE (test code = 2160-0) 0.61 mg/dL 0.50-1.04 TOTAL BILI (test code = 5759080031) 0.6 mg/dL 0.1-1.1 CALCIUM (test code = 3475274643) 9.0 mg/dL 8.6-10.6 T PROTEIN (test code = 2522095892) 8.1 g/dL 6.3-8.2 ALBUMIN (test code = 1499587945) 4.4 g/dL 3.5-5.0 ALK PHOS (test code = 7108909656) 85 U/L 34-122 ALTv (test code = 1742-6) 20 U/L 5-35 AST(SGOT) (test code = 9145667314) 19 U/L 13-40 eGFR (test code = 18115-2) 125.8 mL/min/1.73m2 CKD-EPI eGFR (2020). Assuming creatinine has been stable day-to-day for at least three months, the eGFR indicates Category G1 (>= 90 mL/min/1.73 m2) Lab Interpretation (test code = 22915-9) Abnormal [facility] HospitalLip[facility], Gpxuz3941-81-93 11:58:19* Test Item Value Reference Range Interpretation Comme nts LIPASE (test code = 3561815339) 40 U/L 0-220 Lab Interpretation (test cod e = 99652-1) Normal [facility] with Dfibflivrfqc5099-63-61 11:41:57* Test Item Value Reference Range Interpretation [...] 32.8 g/dL 31.6-35.1 RDW-SD (test code = 29261-0) 51.3 fL 39.0-49.9 H RDW-CV (test code = 788-0) 13.7 % 12.0-15.5 PLT (test code = 777-3) 349 166-358 MPV (test code = 08652-6) 9.3 fL 9.5-12.9 L NRBC/100 WBC (test code = 4195557733) 0.0 0.0-10.0 NRBC x10^3 (test code = 5868228417) See_Comment [Automated messa ge] The system which generated this result transmitted reference range: 10*3/?L. The reference range was not used to interpret this result as normal/abnormal. GRAN MAT (NEUT) % (test code = 770-8) 73.3 % IMM GRAN % (test code = 0760919624) 0.40 % LYMPH % (test code = 736-9) 19.0 % MONO % (test code = 5905-5) 4.8 % EOS % (test code = 713-8) 2.0 % BASO % (test code = 706-2) 0.5 % GRAN MAT x10^3(ANC) (test code = 5582847506) 7.18 10*3/uL 1.88-7.09 H IMM GRAN x10^3 (test code = 5063851663) 0.04 10*3/uL 0.00-0.06 LYMPH x10^3 (test code = 731-0) 1.86 10*3/uL 1.32-3.29 MONO x10^3 (test code = 742-7) 0.47 10*3/uL 0.33-0.92 EOS x10^3 (test code = 711-2) 0.20 10*3/uL 0.03-0.39 BASO x10^3 (test code = 704-7) 0.05 10*3/uL 0.01-0.07 Lab Interpretation (test code = 47914-5) Abnormal [facility]. METABOLIC PANEL (59071)2023-11-08 17:45:25* Test Item Value Reference Range Interpretation Comme nts NA (test code = 1443489525) 136 mmol/L 135-145 K (test code = 3088793883) 3.1 mmol/L 3.5-5.0 L CL (test code = 4608124459) 105 mmol/L 98-108 CO2 TOTAL (test code = 3414039950) 21 mmol/L 23-31 L AGAP (test code = 7842766419) 10 2-16 BUN (test code = 6725796210) 12 mg/dL 7-23 GLUCOSE (test code = 7897573726) 92 mg/dL 70-110 CREATININE (test code = 2160-0) 0.57 mg/dL 0.50-1.04 TOTAL BILI (test code = 0115345150) 0.6 mg/dL 0.1-1.1 CALCIUM (test code = 5005293425) 9.0 mg/dL 8.6-10.6 T PROTEIN (test code = 6309180026) 8.0 g/dL 6.3-8.2 ALBUMIN (test code = 3550176697) 4.3 g/dL 3.5-5.0 ALK PHOS (test code = 7182845690) 81 U/L 34-122 ALTv (test code = 1742-6) 17 U/L 5-35 AST(SGOT) (test code = 4293112607) 45 U/L 13-40 H eGFR (test code = 17206-0) 127.9 mL/min/1.73m2 CKD-EPI eGFR (2020). Assuming creatinine has been stable day-to-day for at least three months, the eGFR indicates Category G1 (>= 90 mL/min/1.73 m2) Lab Interpretation (test code = 31534-7) Abnormal [facility] HospitalLIPASE2024-09-19 16:30:35* Test Item Value Reference Range Interpretation Comme nts LIPASE (test code = 5638733546) 53 U/L 0-220 Lab Interpretation (test cod e = 47449-0) Normal [facility] WITH [id number] 16:15:57* Test Item Value Reference Range Interpretation [...] 33.1 g/dL 31.6-35.1 RDW-SD (test code = 02164-2) 50.1 fL 39.0-49.9 H RDW-CV (test code = 788-0) 13.8 % 12.0-15.5 PLT (test code = 777-3) 471 166-358 H MPV (test code = 65659-5) 9.2 fL 9.5-12.9 L NRBC/100 WBC (test code = 3647775431) 0.0 0.0-10.0 NRBC x10^3 (test code = 7827968814) See_Comment [Automated messa ge] The system which generated this result transmitted reference range: 10*3/?L. The reference range was not used to interpret this result as normal/abnormal. GRAN MAT (NEUT) % (test code = 770-8) 77.8 % IMM GRAN % (test code = 6426411020) 0.30 % LYMPH % (test code = 736-9) 16.7 % MONO % (test code = 5905-5) 4.7 % EOS % (test code = 713-8) 0.2 % BASO % (test code = 706-2) 0.3 % GRAN MAT x10^3(ANC) (test code = 3830589581) 9.31 10*3/uL 1.88-7.09 H IMM GRAN x10^3 (test code = 5257047402) 0.04 10*3/uL 0.00-0.06 LYMPH x10^3 (test code = 731-0) 1.99 10*3/uL 1.32-3.29 MONO x10^3 (test code = 742-7) 0.56 10*3/uL 0.33-0.92 EOS x10^3 (test code = 711-2) 0.03-0.39 L BASO x10^3 (test code = 704-7) 0.03 10*3/uL 0.01-0.07 Lab Interpretation (test code = 03137-2) [facility]normal [id number] 16:01:00* Test Item Value Reference Range Interpretation Comme nts POCT PREG (test code = 1605) Negative On board controls acceptable with C Line (test code = 3574) Yes POCT PREG LOT # (test code = 3575) [id number] POCT PREG TEST DATE ( test code = 3576) 11-28-24 Lab Interpretation (test cod e = 96200-2) Normal [facility] [id number] 16:30:00* Test Item Value Reference Range Interpretation Comme nts POCT PREG (test code = 1605) Negative On board controls acceptable with C Line (test code = 3574) Yes POCT PREG LOT # (test code = 3575) [id number] POCT PREG TEST DATE ( test code = 3576) 03/28/2024 Lab Interpretation (test cod e = 00330-1) Normal [facility] [id number] 20:18:00* Test Item Value Reference Range Interpretation Comme nts POCT PREG (test code = 1605) Negative On board controls acceptable with C Line (test code = 3574) Yes POCT PREG LOT # (test code = 3575) POCT PREG TEST DATE ( test code = 3576) [facility] [id number] 20:18:00* Test Item Value Reference Range Interpretation Comme nts POCT PREG (test code = 1605) Negative On board controls acceptable with C Line (test code = 3574) Yes POCT PREG LOT # (test code = 3575) POCT PREG TEST DATE ( test code = 3576) [facility] [place] [facility] - [id number] 04:42:10* Test Item Value Reference Range Interpretation Comme nts RPR (Qualitative) (test code = 71218-0) Nonreactive Nonreactive Lab Interpretation (test cod e = 07545-6) Normal [facility] Surface [id number] 17:49:35 * Test Item Value Reference Range Interpretation Comme nts HBsAg Semi-Quantitative (mesha t code = 5195-3) Negative Negative [facility]2 AG-AB WITH [id number] 12:19:16* Test Item Value Reference Range Interpretation Comme nts HIV Semi-quantitative (test code = 74461-2) Negative Negative RUMA (test code = RUMA) Non-reactive for HIV-1 antigen and HIV-1/HIV-2 antibodies. ?No laboratory evidence of HIV infection. ?Repeat in 2-4 weeks if acute HIV infection is suspected. [facility] METABOLIC PANEL (06473)2021-11-26 11:29:08* Test Item Value Reference Range Interpretation Comme nts NA (test code = 6504823433) 137 mmol/L 135-145 K (test code = 9766631521) 3.6 mmol/L 3.5-5 CL (test code = 1376399014) 105 mmol/L 98-108 CO2 TOTAL (test code = 5634725198) 21 mmol/L 23-31 L AGAP (test code = 3040229690) 2-16 BUN (test code = 3558669602) 4 mg/dL 7-23 L GLUCOSE (test code = 7545641060) 93 mg/dL 70-110 CREATININE (test code = 0000616319) 0.49 mg/dL 0.5-1.04 L TOTAL BILI (test code = 1170133477) 0.2 mg/dL 0.1-1.1 CALCIUM (test code = 1760027201) 9.0 mg/dL 8.6-10.6 T PROTEIN (test code = 5489525458) 6.9 g/dL 6.3-8.2 ALBUMIN (test code = 5388708878) 3.7 g/dL 3.5-5 ALK PHOS (test code = 8558573752) 169 U/L 34-122 H ALTv (test code = 1742-6) 15 U/L 5-35 AST(SGOT) (test code = 7742680745) 23 U/L 13-40 eGFR (test code = 0373440854) mL/min/1.73m2 RUMA (test code = RUMA) Association [...] imaging tests). Lab Interpretation (test code = 50027-1) Abnormal [facility] [id number] 11:28:48* Test Item Value Reference Range Interpretation Comme [facility] URIC ACID (test code = 1008395474) 3.4 mg/dL 2.9-6 Lab Interpretation (test cod e = 21481-6) Normal [facility] [id number] 11:24:10* Test Item Value Reference Range Interpretation Comme nts LDH (test code = 8198000187) 216 U/L 120-246 Lab Interpretation (test cod e = 25124-1) Normal [facility] and Screen - ONCE [id number] 10:30:18 * Test Item Value Reference Range Interpretation Comme nts ABO & RH (test code = 20) O Positive Performed at [facility] Laboratory Services [facility] Blood [address] [place] [address] Free: [phone] No. [id number] IAT (test code = 1185) Negative Performed at [facility] Laboratory Services - [facility] Blood [address] [place], [place] [address]Toll Free: [phone] No. [id number] [facility]CBC with [id number] 09:46:38* Test Item Value Reference Range Interpretation Comme nts WBC (test code = 6690-2) See_Comment H [Automated [employer]] The system which generated this result [...] 34.9 g/dL 31.6-35.1 RDW-SD (test code = 63332-7) 40.9 fL 39-49.9 RDW-CV (test code = 788-0) 12.2 % 12-15.5 PLT (test code = 777-3) See_Comment [Automated [employer]] The system which generated this result transmitted reference range: 166 - 358 10*3/?L. The reference range was not used to interpret this result as normal/abnormal. MPV (test code = 71785-6) 9.9 fL 9.5-12.9 NRBC/100 WBC (test code = 2317722710) See_Comment [Automated [employer] ssage] The system which generated this result transmitted reference range: 0.0 - 10.0 /100 WBCs. The reference range was not used to interpret this result as normal/abnormal. NRBC x10^3 (test code = 8164072768) See_Comment [Automated [employer]] The system which generated this result transmitted reference range: 10*3/?L. The reference range was not used to interpret this result as normal/abnormal. GRAN MAT (NEUT) % (test code = 770-8) 70.4 % IMM GRAN % (test code = 6915662034) 0.70 % LYMPH % (test code = 736-9) 20.1 % MONO % (test code = 5905-5) 6.0 % EOS % (test code = 713-8) 2.5 % BASO % (test code = 706-2) 0.3 % GRAN MAT x10^3(ANC) (test code = 5887375799) 8.92 10*3/uL 1.88-7.09 H IMM GRAN x10^3 (test code = 9087385220) 0.09 10*3/uL 0-0.06 H LYMPH x10^3 (test code = 731-0) 2.55 10*3/uL 1.32-3.29 MONO x10^3 (test code = 742-7) 0.76 10*3/uL 0.33-0.92 EOS x10^3 (test code = 711-2) 0.32 10*3/uL 0.03-0.39 BASO x10^3 (test code = 704-7) 0.04 10*3/uL 0.01-0.07 Lab Interpretation (test code = 53774-9) Abnormal [facility] URINALYSIS W SPECIFIC [id number] 14:56:00* Test Item Value Reference Range Interpretation [...] POCT U APPEAR (test code = 3267) [facility] URINALYSIS W SPECIFIC [id number] 14:56:00* Test Item Value Reference Range Interpretation [...] POCT U APPEAR (test code = 3267) [facility] URINALYSIS W SPECIFIC [id number] 14:58:00* Test Item Value Reference Range Interpretation [...] POCT U APPEAR (test code = 3267) [facility] URINALYSIS W SPECIFIC [id number] 14:58:00* Test Item Value Reference Range Interpretation [...] POCT U APPEAR (test code = 3267) [facility] URINALYSIS W SPECIFIC [id number] 14:58:00* Test Item Value Reference Range Interpretation [...] POCT U APPEAR (test code = 3267) [facility] URINALYSIS W SPECIFIC [id number] 14:58:00* Test Item Value Reference Range Interpretation [...] POCT U APPEAR (test code = 3267) [facility] URINALYSIS W SPECIFIC [id number] 14:58:00* Test Item Value Reference Range Interpretation [...] POCT U APPEAR (test code = 3267) [facility] URINALYSIS W SPECIFIC [id number] 18:21:00* Test Item Value Reference Range Interpretation [...] code = 3267) [facility] History and Physical Notes Date/Time Note Provider Source 2024-01-29 09:03:32 Patient seen and examined in the preop/DSU area. No changes in history and physical from our note below. -OR today for laparoscopic cholecystectomy -NPO past midnight -Surgical consent signed Kiko Belcher MD 01/29/2024 9:03 AM PGY4, General Surgery SMITH Associated attestation - Eva Bryan MD - 01/29/2024 10:25 AM TOOL SMITH Attending Attestation: I personally evaluated and examined [...] Eva Bryan MD - 01/07/2024 11:15 AM TOOL SMITH Images from the original note were not [...] lives with mother and child, FOB involved. [employer] preference: Sikhism. Has one cat, educated about diego litter [...] min Stress: No Stress Concern Present (12/19/2022) [employer] - Occupational Stress Questionnaire Feeling of Stress : Not at all Social Connections: Moderately Integrated (12/19/2022) Social Connection and Isolation Panel [NHANES] Frequency of Communication with Friends and Family: More than three times a week Frequency of Social Gatherings with Friends and Family: Twice a week Attends [employer] Services: 1 to 4 times per year [...] othopnea, claudication, edema, coronary artery disease/history of [place] Respiratory: Cough, sputum production, hemoptysis, wheezing, shortness [...] consent obtained. Eva Bryan M.D. 01/07/2024 14:58 SMITH [facility]
--- NOTE | 2024-03-14 05:35 | ER ---
Nurse's Notes [facility] Name: Robin Bernard Age: 28 yrs Sex: Female : 1995 Arrival Date: 03/14/2024 Time: 05:18 Bed DX3 Private MD: Diagnosis: Dental root caries Presentation: 03/14 05:39 Chief complaint: Patient states: toothache. Coronavirus screen: Client denies travel vc1 out of the [place] in the last 14 days. At this time, the client does not indicate any symptoms associated with coronavirus-19. Ebola Screen: Patient negative for fever greater than or equal to 101.5 degrees Fahrenheit, and additional compatible Ebola Virus Disease symptoms Patient denies exposure to infectious person. Patient denies travel to an Ebola-affected area in the 21 days before illness onset. No symptoms or risks identified at this time. Initial Sepsis Screen: Does the patient meet any 2 criteria? Yes Does the patient have a suspected source of infection? No. Patient's initial sepsis screen is negative. Risk Assessment: Do you want to hurt yourself or someone else? Patient reports no desire to harm self or others. Onset of symptoms is unknown. Care prior to arrival: None. Activity prior to arrival: None. 05:39 Method Of Arrival: Ambulatory vc1 05:39 Acuity: OBZENA 4 vc1 Triage Assessment: 05:40 General: Appears in no apparent distress. uncomfortable, Behavior is calm, cooperative, vc1 appropriate for age. Pain: Complains of pain in right bottom Pain does not radiate. Pain currently is 10 out of 10 on a pain scale. EENT: Reports pain in right lower tooth. Neuro: Level of Consciousness is awake, alert, obeys commands, Oriented to person, place, time, situation, Appropriate for age. Cardiovascular: Heart tones S1 S2 present Patient's skin is warm and dry. Respiratory: Airway is patent Respiratory effort is even, unlabored, Respiratory pattern is regular, symmetrical, Breath sounds are clear bilaterally. GI: No deficits noted. No signs and/or symptoms were reported involving the gastrointestinal system. : No deficits noted. No signs and/or symptoms were reported regarding the genitourinary system. Derm: Skin is intact, is healthy with good turgor, Skin is dry, Skin is normal, Skin temperature is warm. Musculoskeletal: Circulation, motion, and sensation intact. Range of motion: intact in all extremities. 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 - Infectious Disease History:: Denies. - Family history:: not pertinent. - Hospitalizations: : No recent hospitalization is reported. - Social history:: Smoking status: unknown. Screenin:40 [facility] ED Fall Risk Assessment (Adult) History of falling in the last 3 months, vc1 including since admission No falls in past 3 months (0 pts) Confusion or Disorientation No (0 pts) Intoxicated or Sedated No (0 pts) Impaired Gait No (0 pts) Mobility Assist Device Used No (0 pt) Altered Elimination No (0 pt) Score/Fall Risk Level 0 - 2 = Low Risk Oriented to surroundings, Maintained a safe environment, Educated pt \T\ family on fall prevention, incl call for assistance when getting out of bed. Abuse screen: Denies threats or abuse. Nutritional screening: No deficits noted. Tuberculosis screening: No symptoms or risk factors identified. Vital Signs: 05:31 BP 160 / 96; Pulse 88; Resp 16; Temp 98.2(TE); Pulse Ox 97% on R/A; vk ED Course: 05:20 Patient arrived in ED. gm2 05:26 Robert Wolf MD is Attending Physician. rn 05:39 Triage completed. vc1 05:40 Arm band placed on right wrist. vc1 05:40 Patient has correct armband on for positive identification. seated in diagnostic chair. vc1 Provided Education on: complete abx. 05:44 No provider procedures requiring assistance completed. Patient did not have IV access vc1 during this emergency room visit. Administered Medications: 05:47 Drug: Clindamycin PO 300 mg PO once Route: PO; vc1 05:47 Follow up: Response: Medication administered at discharge. vc1 Medication: 05:43 VIS not applicable for this client. vc1 Outcome: 05:35 Discharge ordered by . rn 05:44 Discharged to home ambulatory, vc1 05:44 Condition: good 05:44 Discharge instructions given to patient, Instructed on discharge instructions, follow up and referral plans. Demonstrated understanding of instructions, follow-up care, medications, Prescriptions given X 2, 05:47 Patient left the ED. vc1 Signatures: Robert Wolf MD MD rn Karina Vasquez RN RN vc1 Bridget Valenzuela 2 Vanessa Mora
--- NOTE | 2024-03-14 05:35 | EDPHYS ---
Physician Documentation [facility] Name: Robin Bernard Age: 28 yrs Sex: Female : 1995 Arrival Date: 03/14/2024 Time: 05:18 Bed DX3 Private MD: ED Physician Robert Wolf HPI: 03/14 05:33 This 28 yrs old Black Female presents to ER via Unassigned with complaints of Toothache.rn 05:33 The patient presents with pain. Onset: The symptoms/episode began/occurred 2 day(s) rn ago. Severity of symptoms: At their worst the symptoms were moderate, in the emergency department the symptoms are unchanged. The patient has experienced similar episodes in the past. Patient reports 2 years of intermittent dental problems, does not have dental insurance and cannot afford a dentist at this time. No new trauma but cavity in the right lower posterior teeth getting deeper and deeper and more sensitive. Noticed increased pain over the last 2 days with subjective swelling in that area. No fever or chills.. 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 - Infectious Disease History:: Denies. - Family history:: not pertinent. - Hospitalizations: : No recent hospitalization is reported. - Social history:: Smoking status: unknown. ROS: 05:33 Constitutional: Negative for fever, chills, and weight loss, ENT: Positive for right rn lower dental pain Neck: Negative for injury, pain, and swelling, Cardiovascular: Negative for chest pain, palpitations, and edema, Respiratory: Negative for shortness of breath, cough, wheezing, and pleuritic chest pain, Exam: 05:33 Constitutional: This is a well developed, well nourished patient who is awake, alert, rn and in no acute distress. ENT: Poor dentition with deep dental carry right lower premolar tooth, no evidence of dental abscess or gingival swelling. No buccal space swelling or fluctuance Neck: No neck swelling or tenderness or masses Vital Signs: 05:31 BP 160 / 96; Pulse 88; Resp 16; Temp 98.2(TE); Pulse Ox 97% on R/A; vk MDM: 05:26 Medical Screening Exam initiated rn 05:33 Differential diagnosis: dental caries, dental abscess. Data reviewed: vital signs, rn nurses notes, and as a result, I will discharge patient. Counseling: I had a detailed discussion with the patient and/or guardian regarding the historical points, exam findings, and any diagnostic results supporting the discharge/admit diagnosis, the need for outpatient follow up, to return to the emergency department if symptoms worsen or persist or if there are any questions or concerns that arise at home. Special discussion: I discussed with the patient/guardian in detail that at this point there is no indication for admission to the hospital. It is understood, however, that if the symptoms persist or worsen the patient needs to return immediately for re-evaluation. Based on the history and exam findings, there is no indication for further emergent testing or inpatient evaluation. I discussed with the patient/guardian the need to see a dentist for further evaluation of the symptoms. Administered Medications: 05:47 Drug: Clindamycin PO 300 mg PO once Route: PO; vc1 05:47 Follow up: Response: Medication administered at discharge. vc1 Disposition Summary: 03/14/24 05:35 Discharge Ordered Notes: Location: Home rn Problem: an ongoing problem rn Symptoms: have improved rn Condition: Stable rn Diagnosis - Dental root caries rn Followup: rn - With: Private Physician - When: As needed - Reason: Recheck today's complaints, Re-evaluation by your physician Discharge Instructions: - Discharge Summary Sheet rn - Dental Caries, Adult rn - Dental Pain rn Forms: - Medication Reconciliation Form rn - Antibiotic rn long term care - Prescription Opioid Use rn - Patient Portal Instructions rn - Leadership Thank You Letter rn Prescriptions: - gabapentin 100 mg Oral capsule - take 1 capsule ORAL route every 12 hours As needed; 14 capsule; Refills: 0, rn Product Selection Permitted - Clindamycin HCl 300 mg Oral Capsule - take 1 capsule ORAL route every 6 hours for 10 days; 40 capsule; Refills: 0, rn Product Selection Permitted Signatures: Robert Wolf MD MD rn Calcote, Vanessa, RN RN vc1
[2024-03-14 07:43] VITALS: BP 160/96; TEMP 98.2; O2SAT 97
== END 2024-03-14 05:47 | disposition home or self-care (01) ==
LOC: ER 05:18
DX: K02.7 Dental root caries (principal)
CPT/HCPCS: 99283

== ENCOUNTER 2024-03-16 13:23 | Emergency (ER) | payer OTHER ==
--- OUTSIDE RECORDS SUMMARY | 2024-03-16 13:31 | XMS REPORT | Continuity of Care Document ---
Author Name Unknown Address [address] [facility]. [address] [place] [address] [facility] Address [address] [facility] [address] [place] [address] Care Team Providers Care Director Patient Name Role Phone Jess Munson MD Primary Care Physician + [phone] JESS MUNSON Attending Clinician Unavailab JESS Killian Attending Clinician Unavailab ASTER Gary Attending Clinician Unavailable ASTER LEE Attending Clinician Unavailable Aster Lee NP Attending Clinician [phone] Eva Bryan MD Attending Clinician [phone] Jess Munson MD Attending Clinician [phone] EVA BRYAN Attending Clinician Unavailable VANESSA LEYVA Attending Clinician Unavailable VANESSA LEYVA Attending Clinician Unavailable SHORTY ZAMBRANO Attending Clinician Unavailable SHORTY ZAMBRANO Attending Clinician Unavailable Shorty Draper Attending Clinician +[phone] TIANNA MEI Attending Clinician Unavailable TIANNA MEI Attending Clinician Unavailable CARO BAUER Attending Clinician Unavailable CARO BAUER Attending Clinician Unavailable Caro Bauer MD Attending Clinician [phone] Nael BROWNE, Yann Attending Clinician +[phone] Huseyin VARGAS, Yisel Attending Clinician +[phone] YISEL HART Attending Clinician Unavailable KONRAD ORDOÑEZ Attending Clinician Unavailab KONRAD Holguin Attending Clinician Unavailab merly Ordoñez ANESTHESIOLOGIST ATTENDING, Konrad Attending Clinician +[phone] Tianna Young Attending Clinician [phone] ISAAC SHAY Attending Clinician Unavailable Gordon VARGAS, Vanessa Cowan Attending Clinician +[phone] Stephen VARGAS, Jose De Jesus Palomino Attending Clinician +[phone] JOSE DE JESUS MEDINA Attending Clinician Unavailable JOSE DE JESUS MEDINA Attending Clinician Unavailable 2, [facility] Attending Clinician Unavailable KELLY SIMMS Attending Clinician UnavailKELLY Ferrera Attending Clinician Unavailelliott Simms MD, Kelly Tolentino Attending Clinician [phone] TIFF ISABEL Attending Clinician Unavailable TIFF ISABEL Attending Clinician Unavailable Maame ANESTHESIOLOGIST ATTENDING, Tiff Attending Clinician +[phone], [facility] Attending Clinician Unavailable BONITA TRIVEDI Attending Clinician Unavailab Bonita Hernandez DO Attending Clinician + [phone] Carlos Ibrahim MD Attending Clinician [phone] Doctor Unassigned, [place] Attending Clinician U NICOLE Aparicio Attending Clinician UnavailNICOLE Sellers Attending Clinician Unavaila KAMILA Barrios Attending Clinician Unavailable JACINTA VOSS Attending Clinician Unavaila susu Rivera, [facility]ending [facility]ician Henrietta vailable Meche Richard Attending Clinician + Jacinta Voss CNM Attending Clinician [phone] MECHE ROBERSON Attending Clinician Unavail able Rodrick Carlisle Attending Clinician Unava DREW Ren Attending Clinician Unavailable RODRICK PETE Attending Clinician Unavailab Wilver Weinstein MD Attending Clinician +[phone] LOVE DWOELL Attending Clinician UnavailLOVE Gonzalez Attending Clinician UnavailBRENDA Pedro Attending Clinician Unavailable Brenda Velásquez MD Attending Clinician +[phone] RichardFernando Rodriguez Attending Clinician [phone] [facility] Unavaila Vinh Romano MD Attending Clinician [phone] VINH MONCADA Attending Clinician Unavailable VINH MONCADA Attending Clinician Unavailable Martinez GREEN BELT, Ivanna Attending Clinician +[phone] Maddie Romeo MD Attending Clinician [phone] MADDIE ROMEO Attending Clinician Unavailable Lab, [facility] Attending Clinician Unavailable Chema STERLING, Alayna S Attending Clinician +[phone] ANGUS DWYER Attending Clinician Unavailable Angus Dwyer DO Attending Clinician +[phone] Abdullahi Gomez MD Attending Clinician +[phone] Foreign Calvillo Attending Clinician + [phone] Edith Terry MD Attending Clinician +[phone] EDITH TERRY Attending Clinician Unavailable EDITH TERRY Attending Clinician Unavailable SHORTY ZAMBRANO Admitting Clinician Unavailable EVA BRYAN Admitting Clinician Unavailable Eva Bryan MD Admitting Clinician [phone] YISEL HART Admitting Clinician Unavailable Yisel Hart MD Admitting Clinician +[phone] KELLY SIMMS Admitting Clinician UnavailVANESSA Garza Admitting Clinician Unavailable Vanessa Leyva MD Admitting Clinician [phone] BRENDA VELÁSQUEZ Admitting Clinician Unavailable Brenda Velásquez MD Admitting Clinician +[phone] Edith Terry MD Admitting Clinician +[phone] EDITH TERRY Admitting Clinician Unavailable Payers Payer Name Policy Type Policy Number Effective Date Expirati on Date Source [facility] [id number] 2021:00:00 [place] [id number] 2021 00:00:00 Problems Condition Name Condition Details Condition Category Status Onset Date Resolution Date Last Treatment Date Treating Clinician Comments Source Louise r sludge Gallkashe r sludge Disease Active 2023-02 00:00: 00 [facility] Hematemesi s with nausea Hematemesi s with nausea Disease Active 2023-02 0- 00:00: 00 [facility] Coffee ground emesis Coffee ground emesis Disease Active 2023-02 0- 00:00: 00 [facility] Abdominal pain, epigastric Abdominal pain, epigastric Disease Active 2023-02 0 00:00: 00 [facility] Papanicola ou smear of cervix with low grade squamous intraepith elial lesion (LGSIL) Papanicola ou smear of cervix with low grade squamous intraepith elial lesion (LGSIL) Disease Active 07-06 00:00: 00 Overview: Formattin g of this note might be different from the original. LGSIL in 2021 needs repeat pap smear in 2022. 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 Disease Active 05-31 00:00: 00 [facility] Tetrahydro cannabinol (THC) use disorder, mild, abuse Tetrahydro cannabinol (THC) use disorder, mild, abuse Disease Resolve d 06-28 00:00: 00 2022-12-25 00:00:00 2022-12-25 13:59:24 [facility] Chronic hypertensi on with superimpos ed preeclamps ia Chronic hypertensi on with superimpos ed preeclamps ia Disease Resolve d 2021-02 0-08 00:00: 00 2022-01-20 00:00:00 2022-01-20 14:17:40 [facility] Supervisio n of high risk , antepartum Supervisio n of high risk , antepartum Disease Resolve d 5-05 00:00: 00 2022-01-20 00:00:00 2022-01-20 14:17:35 [facility] GBS (group B Streptococ cus carrier), +RV culture, 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 Will need ABX in labor. [facility] Single liveborn, born in hospital, delivered by vaginal delivery Single liveborn, born in hospital, delivered by vaginal delivery Disease Resolve d 2021-02 0-09 00:00: 00 2021-12-22 00:00:00 2021-12-22 07:58:27 [facility] Morbid obesity with body mass index of 40.0-49.9 Morbid obesity with body mass index of 40.0-49.9 Disease Resolve d 2021-02 0-08 00:00: 00 2021-12-22 00:00:00 2021-12-22 15:59:51 [facility] Severe pre-eclamp shena in third trimester Severe pre-eclamp shena in third trimester Disease Resolve d 2021-02 0-08 00:00: 00 2021-12-22 00:00:00 2021-12-22 07:58:22 [facility] Elevated blood pressure reading without diagnosis of hypertensi on Elevated blood pressure reading without diagnosis of hypertensi on Disease Resolve d 9-08 00:00: 00 2021-12-22 00:00:00 2021-12-22 07:58:07 [facility] Proteinuri a affecting in third trimester Proteinuri a affecting in third trimester Disease Resolve d 2021-0 9-08 00:00: 00 2021-12-22 00:00:00 2021-12-22 07:58:17 [facility] Intractabl e nausea and vomiting Intractabl e nausea and vomiting Disease Resolve d 0 7-05 00:00: 00 2021-12-22 00:00:00 2021-12-22 07:58:09 [facility] Urinary tract infection without hematuria, site unspecifie d Urinary tract infection without hematuria, site unspecifie d Disease Resolve d 0 6-02 00:00: 00 2021-12-22 00:00:00 2021-12-22 07:57:57 [facility] Nausea and vomiting during Nausea and vomiting during Disease Resolve d 2021-0 5-10 00:00: 00 2021-12-22 00:00:00 2021-12-22 07:58:11 [facility] Nausea and vomiting during Nausea and vomiting during Disease Resolve d 0 5-10 00:00: 00 2021-12-22 00:00:00 2021-12-22 07:58:11 [facility] Primigravi da in second trimester Primigravi da in second trimester Disease Resolve d 2021-0 5-05 00:00: 00 2021-12-22 00:00:00 2021-12-22 07:58:15 [facility] Obesity in Obesity in Disease Resolve d 0 5-05 00:00: 00 2021-12-22 00:00:00 2021-12-22 07:58:13 [facility] Chronic hypertensi on affecting Chronic hypertensi on affecting Disease Resolve d 2021-0 4-24 00:00: 00 2021-12-22 00:00:00 2021-12-22 07:58:04 [facility] BMI 40.0-44.9, adult BMI 40.0-44.9, adult Disease Resolve d 2021-0 4-23 00:00: 00 2021-12-22 00:00:00 2021-12-22 15:59:13 [facility] 15 weeks gestation of 15 weeks gestation of Disease Resolve d 2021-0 4-12 00:00: 00 2021-12-22 00:00:00 2021-12-22 07:58:01 [facility] Hyperemesi s Hyperemesi s Disease Resolve d 2021-0 5-10 00:00: 00 2021-11-26 00:00:00 2021-11-26 09:09:11 [facility] Hyperbilir ubinemia Hyperbilir ubinemia Disease Resolve d 2021-0 4-25 00:00: 00 2021-11-26 00:00:00 2021-11-26 09:09:06 [facility] Hypomagnes emia Hypomagnes emia Disease Resolve d 2021-0 4-25 00:00: 00 2021-11-26 00:00:00 2021-11-26 09:09:05 [facility] Hypocalcem ia Hypocalcem ia Disease Resolve d 2021-0 4-25 00:00: 00 2021-11-26 00:00:00 2021-11-26 09:09:03 [facility] Hypokalemi a Hypokalemi a Disease Resolve d 2021-0 4-12 00:00: 00 2021-11-26 00:00:00 2021-11-26 09:09:30 [facility] Hyponatrem ia Hyponatrem ia Disease Resolve d 2021-0 4-12 00:00: 00 2021-11-26 00:00:00 2021-11-26 09:09:33 [facility] Tachycardi a Tachycardi a Disease Resolve d 2021-0 4-12 00:00: 00 2021-11-26 00:00:00 2021-11-26 09:09:30 [facility] Nausea and vomiting in prior to 22 weeks gestation Nausea and vomiting in prior to 22 weeks gestation Disease Resolve d 2021-0 4-12 00:00: 00 2021-11-26 00:00:00 2021-11-26 09:09:43 [facility] Nausea and vomiting in prior to 22 weeks gestation Nausea and vomiting in prior to 22 weeks gestation Disease Resolve d 05-31 00:00: 00 2021-11-26 00:00:00 2021-11-26 09:09:43 [facility] Allergies, Adverse Reactions, Alerts Allergy Name Allergy Type Status Severity Reaction(s) Onset Date Inactive Date Treating Clinician Comments Source Egg Propensi ty to adverse reaction s Active Nausea and/or Vomiting 06-29 00:00: 00 [facility] EGG DRUG INGREDI Active N/V 06-29 00:00: 00 [facility] Metoclop ramide Drug Allergy Active Extra pyramidal effects 05-31 00:00: 00 [facility] METOCLOP RAMIDE DRUG INGREDI Active Med EP Effects 05-31 00:00: 00 [facility] Social History Social Habit Start Date Stop Date Quantity Comments Source ASSERTION 2021-03-26 00:00:00 [facility] of [facility] use Current smoker [facility] Alcoholic beverage intake 2024-03-16 00:00:00 2024-03-16 00:00:00 Current drinker of alcohol (finding) [facility] Alcohol Comment 2023-11-26 00:00:00 2023-11-26 00:00:00 ocassional [facility] Tobacco use and exposure 2023-11-26 00:00:00 2023-11-26 00:00:00 Smokeless tobacco non-user [facility] History of Social function 2023-11-22 00:00:00 2023-11-22 00:00:00 [facility] Alcohol intake 2023-06-21 00:00:00 2023-06-21 00:00:00 Ex-drinker (finding) [facility] Exposure to SARS-CoV-2 (event) 2022-01-10 00:00:00 2022-01-20 14:04:00 Not sure [facility] Tobacco Comment 2021-09-15 00:00:00 2021-09-15 00:00:00 marijuana,no nicotine stopped for [facility] Sex assigned at 1995 00:00:00 1995 00:00:00 [facility] Smoking Status Start Date Stop Date Source Ex-smoker 2023-11-26 00:00:00 2023-11-26 00:00:00 [facility] Medications Ordered Medication Name Filled Medication Name Start Date Stop Date Current Medication? Ordering Clinician Indication Dosage Frequency Signature (SIG) Comments Components Source HYDROcodone -acetaminop hen (NORCO) 10-325 mg tablet 1 tablet 03-16 09:30: 00 03-16 08:29 :00 No 1{tbl} 1 tablet, Oral, ONCE, 1 dose, On 03/16/24 at 0330, Routine [facility] cephALEXin (KEFLEX) capsule 500 mg 03-16 08:30: 00 03-16 08:29 :00 No 500mg 500 mg, Oral, ONCE, 1 dose, On 03/16/24 at 0230, RACHAEL, Reason for Anti-Infec tive: Documented Infection, Documented Infection Site: HEENT, Duration of Therapy: Once (ED) [facility] cephALEXin 500 mg capsule 03-16 00:00: 00 03-24 05:59 :00 Yes [id number] 500mg Take 1 capsule by mouth 4 (four) times daily for 7 days. [facility] indomethaci n 50 mg capsule 03-16 00:00: 00 03-24 05:59 :00 Yes [id number] 50mg Take 1 capsule by mouth in the morning and 1 capsule at noon and 1 capsule in the evening. Take with meals. Do all this for 7 days. [facility] tirzepatide 2.5 mg/0.5 mL subcutaneou s injection pen 03-05 00:00: 00 Yes [id number] 104 2.5mg inject 2.5 mg under the skin weekly. Start 2.5mg qWeek x 4 Weeks, then increase to 5mg qWeek x 4 Weeks, then increase to 7.5mg qWeek x 4 Weeks, the increase to 10mg qWeek. [facility] tirzepatide , weight loss, 5 mg/0.5 mL subcutaneou s injection 03-05 00:00: 00 Yes [id number] 104 After 2.5mg qWeek x 4 Weeks, then increase to 5mg qWeek [facility] phentermine -topiramate 3.75-23 mg per capsule 03-05 00:00: 00 03-13 05:59 :00 Yes [id number] 104 1{capsu le} Take 1 capsule by mouth in the morning for 7 days. [facility] zolpidem 5 mg tablet 02-26 00:00: 00 Yes [id number] 5mg Take 1 tablet by mouth at bedtime as needed for Insomnia. [facility] phentermine -topiramate (QSYMIA) 3.75-23 mg per capsule 02-26 00:00: 00 03-05 00:00 :00 No [id number] 104 1{capsu le} Take 1 capsule by mouth in the morning. [facility] ondansetron (ZOFRAN-ODT ) disintegrat ing tablet 4 mg 02-21 09:45: 00 02-21 08:46 :00 No 4mg 4 mg, Oral, ONCE, 1 dose, On Sun02/22/24 at 0345, RACHAEL [facility] cefTRIAXone (ROCEPHIN) 1,000 mg in water for injection, sterile 10 mL IV Push 02-21 08:30: 00 02-21 08:31 :00 No 1000mg 1,000 mg, Intravenou s, ONCE, 1 dose, On Sun02/22/24 at 0230, 10 mL, Reason for Anti-Infec tive: Empiric Therapy for Suspected Infection, Empiric Therapy Site: Urine, Duration of therapy: Once (ED) [facility] iopamidol (ISOVUE 370-500 mL) injection 80 mL 02-21 08:30: 00 02-21 08:30 :00 No [id number] 80mL 80 mL, Intravenou s, ONCE, 1 dose, On Sun02/22/24 at 0230, Routine [facility] maalox/diph enhydrAMINE :lidocaine2 %viscous 1:1:1: suspension (COMPOUNDED ) 02-21 07:45: 00 02-21 07:36 :00 No 15mL 15 mL, Oral, ONCE, 1 dose, On Sun02/22/24 at 0145, RACHAEL [facility] NaCl 0.9% (NS) bolus infusion 1,000 mL 02-21 06:45: 00 02-21 08:11 :00 No 1000mL at 999 mL/hr, 1,000 mL, IV Infusion, ONCE, 1 dose, On Sun02/22/24 at 0045, RACHAEL [facility] morpHINE (4 mg/mL) injection 4 mg 02-21 06:00: 00 02-21 06:13 :00 No 4mg 4 mg, Slow IV Push, ONCE, 1 dose, On Sun02/22/24 at 0000, STAT [facility] ondansetron (ZOFRAN (PF)) injection 8 mg 02-21 06:00: 00 02-21 06:17 :00 No 8mg 8 mg, Slow IV Push, ONCE, 1 dose, On Sun02/22/24 at 0000, Administer over 2-5 Minutes, 4 mL [facility] cefdinir 300 mg capsule 02-21 00:00: 00 03-01 05:59 :00 No [id number] 300mg Take 1 capsule by mouth every 12 (twelve) hours for 7 days. [facility] ondansetron 4 mg disintegrat ing tablet 02-21 00:00: 00 02-26 00:00 :00 No [id number] 4mg Take 1 tablet by mouth every 8 (eight) hours as needed for Nausea and Vomiting (N/V). [facility] acetaminoph en (TYLENOL EXTRA STRENGTH) 500 mg tablet 2023-02 225 00:00: 00 02-26 00:00 :00 No [id number] 1000mg Take 2 tablets by mouth every 8 (eight) hours for 15 days. [facility] ibuprofen 800 mg tablet 2023-02 00:00: 00 02-26 00:00 :00 No [id number] 800mg Take 1 tablet by mouth every 8 (eight) hours for 15 days. [facility] HYDROcodone -acetaminop hen (NORCO 5) tablet 1 tablet 2023-02 18:30: 00 01-28 19:00 :00 No 1{tbl} 1 tablet, Oral, ONCE, 1 dose, On Sun01/29/24 at 1230, Routine, PACU [facility] lactated ringers IV infusion 1,000 mL 2023-02 18:30: 00 01-28 22:20 :16 No 1000mL at 50 mL/hr, 1,000 mL, IV Infusion, CONTINUOUS , Starting on Sun01/29/24 at 1230, Until Sun01/29/24 at 1620, Routine, PACU [facility] HYDROmorphO ne (DILAUDID) injection 0.2 mg 2023-02 18:19: 17 01-28 22:20 :16 No .2mg 0.2 mg, Slow IV Push, Q5MIN PRN, 10 doses, Starting on Sun01/29/24 at 1219, Until Sun01/29/24 at 1620, Routine, Pain (scale 7-10), PACU, Is this medication approved by a Faculty level provider? Yes, maintenance team member approving Restricted medication : RADHA EVANS [facility] FENTanyl (PF) (SUBLIMAZE) injection 25 mcg 2023-02 18:19: 17 01-28 22:20 :16 No 25ug 25 mcg, Slow IV Push, Q5MIN PRN, 4 doses, Starting on Sun01/29/24 at 1219, Until Sun01/29/24 at 1620, Routine, Pain Scale 4-6, PACU [facility] ondansetron (ZOFRAN (PF)) injection 4 mg 2023-02 18:19: 17 01-28 22:20 :16 No 4mg 4 mg, Slow IV Push, PRN, 1 dose, Starting on Sun01/29/24 at 1219, Until Sun01/29/24 at 1620, Administer over 2-5 Minutes, 2 mL, PACU [facility] bupivacaine -epinephrin e-pf (SENSORCAIN E W/EPINEPHRI NE) 0.25 %-1:200,000 30 mL, lidocaine 1% (PF) (XYLOCAINE) 30 mL 2023-02 16:57: 00 01-28 18:29 :17 No PRN, Starting on Sun01/29/24 at 1057, Intra-op [facility] sodium chloride 0.9 % irrigation solution 2023-02 16:56: 00 01-28 18:29 :17 No PRN, Starting on Sun01/29/24 at 1056, Until Sun01/29/24 at 1229, Intra-op [facility] acetaminoph en (TYLENOL) 325 mg tablet 2023-02 00:00: 00 02-05 05:59 :00 Yes [id number] 650mg Take 2 tablets by mouth every 6 (six) hours for 7 days. [facility] ibuprofen 800 mg tablet 2023-02 00:00: 00 02-05 05:59 :00 Yes [id number] 800mg Take 1 tablet by mouth every 6 (six) hours for 7 days. [facility] traMADoL 50 mg tablet 2023-02 00:00: 00 02-05 05:59 :00 Yes [id number] 50mg Take 1 tablet by mouth every 8 (eight) hours for 7 days. Indication s: acute pain, chronic pain [facility] HYDROcodone -acetaminop hen 5-325 mg tablet 2023-02 00:00: 00 02-05 05:59 :00 Yes [id number] 1{tbl} Take 1 tablet by mouth every 6 (six) hours as needed for Pain (scale 7-10) for up to 7 days. Indication s: acute pain [facility] phentermine 37.5 mg tablet 2023-02 00:00: 00 02-26 00:00 :00 No [id number] 104 37.5mg Take 1 tablet by mouth daily with breakfast. [facility] zolpidem 5 mg tablet 2023-02 00:00: 00 02-26 00:00 :00 No [id number] 5mg Take 1 tablet by mouth at bedtime as needed for Insomnia. [facility] ondansetron 8 mg tablet 2023-02 00:00: 00 02-26 00:00 :00 No [id number] 8mg Take 1 tablet by mouth every 8 (eight) hours as needed for Nausea and Vomiting (N/V). [facility] ketorolac (TORADOL) injection 30 mg 2023-02 11:30: 00 01-11 10:39 :00 No 30mg 30 mg, Slow IV Push, ONCE, 1 dose, On 01/12/24 at 0530, Routine [facility] fentanyl PF (SUBLIMAZE (PF)) injection 50 mcg 2023-02 11:15: 00 01-11 11:15 :00 No 50ug 50 mcg, Slow IV Push, ONCE, 1 dose, On 01/12/24 at 0515, Routine [facility] ondansetron (ZOFRAN (PF)) injection 4 mg 2023-02 10:30: 00 01-11 10:29 :00 No 4mg 4 mg, Slow IV Push, ONCE, 1 dose, On 01/12/24 at 0430, Administer over 2-5 Minutes, 2 mL [facility] fentanyl PF (SUBLIMAZE (PF)) injection 50 mcg 2023-02 10:30: 00 01-11 10:40 :00 No 50ug 50 mcg, Slow IV Push, ONCE, 1 dose, On 01/12/24 at 0430, RACHAEL [facility] ondansetron (ZOFRAN (PF)) injection 4 mg 2023-02 10:15: 00 01-11 10:07 :00 No 4mg 4 mg, Slow IV Push, ONCE, 1 dose, On 01/12/24 at 0415, Administer over 2-5 Minutes, 2 mL [facility] traMADoL (ULTRAM) 50 mg tablet 2023-02 00:00: 00 02-26 00:00 :00 No [id number] 50mg Take 1 tablet by mouth every 6 (six) hours as needed for Pain (scale 7-10). Indication s: acute pain [facility] dicyclomine 20 mg tablet 2023-02 00:00: 00 02-26 00:00 :00 No [id number] 20mg Take 1 tablet by mouth every 6 (six) hours as needed for Abdominal pain. [facility] ondansetron (ZOFRAN) 4 mg tablet 2023-02 00:00: 00 01-27 00:00 :00 No [id number] 4mg Take 1 tablet by mouth every 8 (eight) hours as needed for Nausea and Vomiting (N/V). [facility] ondansetron 8 mg tablet 2023-02 00:00: 00 01-24 00:00 :00 No [id number] 8mg Take 1 tablet by mouth every 8 (eight) hours as needed for Nausea and Vomiting (N/V). [facility] ondansetron 4 mg disintegrat ing tablet 2023-02 00:00: 00 01-10 00:00 :00 No [id number] 4mg Take 1 tablet by mouth every 8 (eight) hours as needed for Nausea and Vomiting (N/V). [facility] phentermine 37.5 mg tablet 2023-02 00:00: 00 01-24 00:00 :00 No [id number] 104 37.5mg Take 1 tablet by mouth daily with breakfast. [facility] zolpidem 5 mg tablet 2023-02 00:00: 00 01-24 00:00 :00 No [id number] 5mg Take 1 tablet by mouth at bedtime as needed for Insomnia. [facility] ondansetron 4 mg disintegrat ing tablet 2023-02 00:00: 00 01-09 00:00 :00 No [id number] 4mg Take 1 tablet by mouth every 8 (eight) hours as needed for Nausea and Vomiting (N/V). [facility] ondansetron 4 mg tablet 2023-02 00:00: 00 01-10 00:00 :00 No [id number] 4mg Take 1 tablet by mouth every 8 (eight) hours as needed for Nausea and Vomiting (N/V). [facility] TRAZODONE 100 mg tablet 2023-02 00:00: 00 02-26 00:00 :00 No [id number] 100mg TAKE 1 TABLET BY MOUTH EVERYDAY AT BEDTIME [facility] pantoprazol e 40 mg EC tablet 11-18 00:00: 00 Yes [id number] 40mg Take 1 tablet by mouth in the morning. [facility] phentermine 37.5 mg tablet 11-18 00:00: 00 12-24 00:00 :00 No [id number] 104 37.5mg Take 1 tablet by mouth daily with breakfast. [facility] zolpidem 5 mg tablet 11-18 00:00: 00 12-24 00:00 :00 No [id number] 5mg Take 1 tablet by mouth at bedtime as needed for Insomnia. [facility] proMETHazin e (PHENERGAN) 12.5 mg in NS 50 mL IV piggyback (CNR) 11-17 15:30: 00 11-17 15:49 :00 No 12.5mg 12.5 mg, IV Piggyback, at 200 mL/hr Administer over 15 Minutes, ONCE, 1 dose, On 11/18/23 at 1030, RACHAEL [facility] morpHINE (4 mg/mL) injection 4 mg 11-17 15:30: 00 11-17 15:34 :00 No 4mg 4 mg, Slow IV Push, ONCE, 1 dose, On 11/18/23 at 1030, STAT [facility] ketorolac (TORADOL) injection 30 mg 11-17 15:00: 00 11-17 14:09 :00 No 30mg 30 mg, Slow IV Push, ONCE, 1 dose, On Sun11/18/23 at 1000, [facility] famotidine (PEPCID (PF)) injection 20 mg 11-17 14:15: 00 11-17 14:09 :00 No 20mg 20 mg, Slow IV Push, ONCE, 1 dose, On Sun11/18/23 at 0915, [facility] iopamidol (ISOVUE 370-500 mL) injection 100 mL 11-17 13:30: 00 11-17 13:45 :00 No [id number] 100mL 100 mL, Intravenou s, ONCE, 1 dose, On Sun11/18/23 at 0845, Routine [facility] NaCl 0.9% (NS) IV infusion 1,000 mL 11-17 13:00: 00 11-17 15:15 :00 No 1000mL at 999 mL/hr, Intravenou s, ONCE, 1 dose, On Sun11/18/23 at 0800, [facility] proMETHazin e (PHENERGAN) 12.5 mg in NS 50 mL IV piggyback (CNR) 11-17 12:30: 00 11-17 13:33 :00 No 12.5mg 12.5 mg, IV Piggyback, at 200 mL/hr Administer over 15 Minutes, ONCE, 1 dose, On Sun11/18/23 at 0730, [facility] fentanyl PF (SUBLIMAZE (PF)) injection 100 mcg 11-17 11:15: 00 11-17 11:16 :00 No 100ug 100 mcg, Slow IV Push, ONCE, 1 dose, On Sun11/18/23 at 0615, Routine [facility] ondansetron (ZOFRAN (PF)) injection 8 mg 11-17 11:00: 00 11-17 11:10 :00 No 8mg 8 mg, Slow IV Push, ONCE, 1 dose, On Sun11/18/23 at 0600, [facility] sodium chloride (NS) injection 5 mL 11-17 10:51: 45 Yes 5mL 5 mL, Intravenou s, PRN, Starting on Sun11/18/23 at 0551, Until Discontinu ed, Routine, IV line flushing [facility] proMETHazin e 25 mg tablet 11-17 00:00: 00 02-26 00:00 :00 No [id number] 25mg Take 1 tablet by mouth every 6 (six) hours as needed for Nausea and Vomiting (N/V). [facility] traMADoL 50 mg tablet 11-17 00:00: 00 01-28 00:00 :00 No [id number] 50mg Take 1 tablet by mouth every 6 (six) hours as needed (pain). Indication s: acute pain [facility] zolpidem 5 mg tablet 11-17 00:00: 00 11-17 00:00 :00 No [id number] 5mg Take 1 tablet by mouth at bedtime as needed for Insomnia. [facility] KCL (KLOR-CON M20) tablet 20 mEq 11-07 19:30: 00 11-07 19:56 :00 No 20meq 20 mEq, Oral, ONCE, 1 dose, On Sun11/08/23 at 1430, [facility] proMETHazin e (PHENERGAN) 12.5 mg in NS 50 mL IV piggyback (CNR) 11-07 17:45: 00 11-07 18:53 :00 No 12.5mg 12.5 mg, IV Piggyback, at 200 mL/hr Administer over 15 Minutes, ONCE, 1 dose, On Sun11/08/23 at 1245, [facility] ondansetron (ZOFRAN (PF)) injection 4 mg 11-07 16:30: 00 11-07 16:38 :00 No 4mg 4 mg, Slow IV Push, ONCE, 1 dose, On Gabby 11/08/23 at 1130, [facility] famotidine (PEPCID (PF)) injection 20 mg 11-07 16:30: 00 11-07 16:38 :00 No 20mg 20 mg, Slow IV Push, ONCE, 1 dose, On Gabby 11/08/23 at 1130, [facility] NaCl 0.9% (NS) bolus infusion 1,000 mL 11-07 16:30: 00 11-07 19:53 :00 No 1000mL at 999 mL/hr, 1,000 mL, IV Infusion, ONCE, 1 dose, On Gabby 11/08/23 at 1130, [facility] morpHINE (4 mg/mL) injection 4 mg 11-07 15:45: 00 11-07 18:39 :00 No 4mg 4 mg, Slow IV Push, ONCE, 1 dose, On Gabby 11/08/23 at 1045, [facility] ondansetron 4 mg disintegrat ing tablet 11-07 00:00: 00 11-12 04:59 :00 No [id number] 4mg Take 1 tablet by mouth every 8 (eight) hours as needed for Nausea and Vomiting (N/V) for up to 4 days. [facility] zolpidem 5 mg tablet 10-18 00:00: 00 11-15 00:00 :00 No [id number] 5mg Take 1 tablet by mouth at bedtime as needed for Insomnia. [facility] ergocalcife rol, vitamin d2, (VITAMIN D2) 1,250 mcg (50,000 unit) capsule 10-15 00:00: 00 Yes [id number] 50643Z Take 1 capsule by mouth weekly. [facility] phentermine 37.5 mg tablet 10-15 00:00: 00 11-18 00:00 :00 No [id number] 37.5mg Take 1 tablet by mouth daily with breakfast. [facility] ergocalcife rol, vitamin d2, (VITAMIN D2) 1,250 mcg (50,000 unit) capsule 8-14 00:00: 00 10-14 00:00 :00 No [id number] 48288M Take 1 capsule by mouth weekly. [facility] zolpidem 5 mg tablet 09-12 00:00: 00 10-15 00:00 :00 No [id number] 5mg Take 1 tablet by mouth at bedtime as needed for Insomnia. [facility] phentermine 37.5 mg tablet 09-12 00:00: 00 10-14 00:00 :00 No [id number] 37.5mg Take 1 tablet by mouth daily with breakfast. [facility] phentermine 37.5 mg tablet 08-05 00:00: 00 09-11 00:00 :00 No [id number] 37.5mg Take 1 tablet by mouth daily with breakfast. [facility] zolpidem 5 mg tablet 08-05 00:00: 00 09-11 00:00 :00 No [id number] 5mg Take 1 tablet by mouth at bedtime as needed for Insomnia. [facility] traZODone 100 mg tablet 07-24 00:00: 00 12-09 00:00 :00 No [id number] 100mg Take 1 tablet by mouth at bedtime. [facility] acetaminoph en (TYLENOL) tablet 650 mg 06-20 17:30: 00 06-20 17:25 :00 No 650mg 650 mg, Oral, ONCE, 1 dose, On Gabby 06/21/23 at 1230, [facility] sulfamethox azole-trime thoprim 800-160 mg per tablet 06-20 00:00: 00 08-05 00:00 :00 No [id number] 1{tbl} Take 1 tablet by mouth every 12 (twelve) hours. [facility] phentermine 37.5 mg tablet 4-09 00:00: 00 08-05 00:00 :00 No [id number] 37.5mg Take 1 tablet by mouth daily with breakfast. [facility] traZODone 100 mg tablet 0 3-04 00:00: 00 07-24 00:00 :00 No [id number] 100mg Take 1 tablet by mouth at bedtime. [facility] phentermine 37.5 mg tablet 0 2- 00:00: 00 05-28 00:00 :00 No [id number] 37.5mg Take 1 tablet by mouth daily with breakfast. [facility] zolpidem 5 mg tablet 0 2-15 00:00: 00 08-05 00:00 :00 No [id number] 5mg Take 1 tablet by mouth at bedtime as needed for Insomnia. [facility] phentermine 37.5 mg tablet 1-12 00:00: 00 04-11 00:00 :00 No [id number] 37.5mg Take 1 tablet by mouth daily with breakfast. [facility] zolpidem 5 mg tablet 0 1-02 00:00: 00 04-05 00:00 :00 No [id number] 5mg Take 1 tablet by mouth at bedtime as needed for Insomnia. [facility] phentermine 37.5 mg tablet 2022-02 2-08 00:00: 00 03-02 00:00 :00 No [id number] 37.5mg Take 1 tablet by mouth daily with breakfast. [facility] traZODone 100 mg tablet 2022-02 2-06 00:00: 00 04-22 00:00 :00 No [id number] 100mg Take 1 tablet by mouth at bedtime. [facility] phentermine 37.5 mg tablet 2022-02 2-06 00:00: 00 01-26 00:00 :00 No [id number] 37.5mg Take 1 tablet by mouth daily with breakfast. [facility] zolpidem 5 mg tablet 2022-02 1-28 00:00: 00 02-19 00:00 :00 No [id number] 5mg Take 1 tablet by mouth at bedtime as needed for Insomnia. [facility] TRAZODONE 50 mg tablet 2022-02 00:00: 00 01-24 00:00 :00 No [id number] 50mg TAKE 1 TABLET BY MOUTH EVERYDAY AT BEDTIME [facility] ramelteon 8 mg tablet 2022-02 00:00: 00 01-24 00:00 :00 No [id number] 8mg Take 1 tablet by mouth at bedtime. [facility] Doxepin 6 mg Tab 2022-02 00:00: 00 01-04 00:00 :00 No [id number] 6mg Take 6 mg by mouth at bedtime. [facility] ergocalcife rol, vitamin d2, (VITAMIN D2) 1,250 mcg (50,000 unit) capsule 2022-02 00:00: 00 09-30 00:00 :00 No [id number] Take 1 capsule by mouth weekly. [facility] traZODone 50 mg tablet 2022-02 00:00: 00 01-16 00:00 :00 No [id number] 50mg Take 1 tablet by mouth at bedtime. [facility] medroxyPROG ESTERone (DEPO-PROVE RA) syringe 150 mg 2021-02 21:15: 00 01-20 20:41 :00 No [id number] 150mg [facility] NIFEdipine ER 30 mg tablet 2021-02 00:00: 00 01-20 00:00 :00 No [id number] 30mg Take 1 tablet by mouth in the morning. [facility] NIFEdipine ER tablet 30 mg 2021-02 0-10 04:00: 00 Yes 30mg 30 mg, Oral, DAILY, First dose on 11/27/21 at 2300, Until Discontinu ed, Routine [facility] vitamin w/FA tablet 2021-02 0-10 00:00: 00 01-20 00:00 :00 No [id number] 1{tbl} Take 1 tablet by mouth in the morning. [facility] docusate 100 mg capsule 2021-02 00:00: 00 01-20 00:00 :00 No [id number] 200mg Take 2 capsules by mouth once daily as needed for Constipati on. [facility] ferrous sulfate 325 mg (65 mg iron) tablet 2021-02 00:00: 00 01-20 00:00 :00 No [id number] 325mg Take 1 tablet by mouth in the morning and 1 tablet in the evening. [facility] ibuprofen 600 mg tablet 2021-02 00:00: 00 01-20 00:00 :00 No [id number] 600mg Take 1 tablet by mouth every 6 (six) hours as needed (Pain). Take with food or milk. [facility] D5W 0.45% NaCl (1/2NS) IV infusion 1,000 mL 2021-02 19:38: 00 Yes 1000mL at 50 mL/hr, 1,000 mL, IV Infusion, CONTINUOUS , Starting on 11/27/21 at 1445, Until Discontinu ed, Routine [facility] HYDROcodone -acetaminop hen (NORCO 5) 5-325 mg tablet 1 tablet 2021-02 12:41: 25 Yes 1{tbl} 1 tablet, Oral, Q6HPRN, Starting on 11/27/21 at 0741, Until Discontinu ed, Routine, Pain (scale 7-10) [facility] ibuprofen (IBU) tablet 600 mg 2021-02 12:41: 25 Yes 600mg 600 mg, Oral, Q6HPRN, Starting on 11/27/21 at 0741, Until Discontinu ed, Routine, Pain (scale 4-6) [facility] acetaminoph en (TYLENOL) tablet 650 mg 2021-02 12:41: 25 Yes 650mg 650 mg, Oral, Q6HPRN, Starting on 11/27/21 at 0741, Until Discontinu ed, Routine, Pain (scale 1-3) [facility] diphenhydrA MINE (BENADRYL) tablet 25 mg 2021-02 12:41: 25 Yes 25mg 25 mg, Oral, Q6HPRN, Starting on 11/27/21 at 0741, Until Discontinu ed, Routine, Sleep, Itching [facility] ondansetron (ZOFRAN (PF)) injection 4 mg 2021-02 12:41: 25 Yes 4mg 4 mg, Slow IV Push, Q8HPRN, Starting on 11/27/21 at 0741, Until Discontinu ed, Routine, Nausea and Vomiting (N/V) [facility] simethicone (GAS RELIEF (SIMETHICON E)) chewable tablet 160 mg 2021-02 12:41: 25 Yes 160mg 160 mg, Oral, PC+HSPRN, Starting on 11/27/21 at 0741, Until Discontinu ed, Routine, Gas [facility] docusate (COLACE) capsule 200 mg 2021-02 12:41: 25 Yes 200mg 200 mg, Oral, QDAILYPRN, Starting on 11/27/21 at 0741, Until Discontinu ed, Routine, Constipati on [facility] magnesium hydroxide (MILK OF MAGNESIA) 400 mg/5 mL suspension 30 mL 2021-02 12:41: 25 Yes 30mL 30 mL, Oral, QDAILYPRN, Starting on 11/27/21 at 0741, Until Discontinu ed, Routine, Constipati on [facility] benzocaine- menthol (DERMOPLAST ) 20-0.5 % topical spray 2021-02 12:41: 25 Yes Topical, PRN, Starting on 11/27/21 at 0741, Until Discontinu ed, Routine, Perineum discomfort [facility] calcium gluconate 100 mg/mL (10%) injection 1,000 mg 2021-02 12:40: 21 Yes 1000mg 1,000 mg, Slow IV Push, PRN - SEE SP NS, Starting on 11/27/21 at 0740, Until Discontinu ed, Routine, magnesium toxicity [facility] magnesium sulfate 4 mEq/mL (50 %) injection 32.48 mEq 2021-02 12:40: 21 Yes 4g 32.48 mEq (4 g), Slow IV Push, PRN - SEE INSTRUCTIO NS, Starting on 11/27/21 at 0740, Until Discontinu ed, Routine, For seizure activity (patient not on magnesium sulfate) [facility] magnesium sulfate 4 mEq/mL (50 %) injection 16.24 mEq 2021-02 12:40: 21 Yes 2g 16.24 mEq (2 g), Slow IV Push, PRN - SEE INSTRUCTIO NS, 2 doses, Starting on 11/27/21 at 0740, Until Discontinu ed, Routine, For seizure activity (patient already on magnesium sulfate) [facility] labetaloL (NORMODYNE) injection 20 mg 2021-02 12:38: [...] Hypertensi ve Emergency in [Order 4 End] [facility] oxytocin (PITOCIN) 30 units in NS 500 mL IV infusion 2021-02 02:10: 24 11-27 12:40 :54 No 2mU/min at 2-40 mL/hr, IV Infusion, TITRATE, Starting on 11/26/21 at 2110, Until Margaret 11/27/21 at 0740, Routine [facility] penicillin g pot in dextrose 3 million unit/50 mL RTU iv piggyback 3 Million Units 2021-02 22:15: 00 11-27 12:40 :54 No 310 3 Million Units, IV Piggyback, Q4H ABX, First dose on 11/26/21 at 1715, Until Discontinu ed, Administer over 60 Minutes, 50 mL
Reas on for Anti-Infec tive: Empiric Non-Surgic al Prophylaxi s
Durat ion of therapy: 72 hours [facility] fentaNYL-ro pivacaine 2 mcg/mL-0.1 % (PF) in NS 200 mL epidural infusion RTU 2021-02 20:46: 00 11-27 13:52 :31 No Epidural, ONCE INTRA PROCEDURE, Starting on 11/26/21 at 1546, Until Margaret 11/27/21 at 0852, Routine, Intra-op [facility] lidocaine-e pinephrine (XYLOCAINE W/EPINEPHRI NE) 1.5 %-1:200,000 injection 2021-02 0 20:43: 00 Yes Epidural, ONCE INTRA PROCEDURE, Starting on 11/26/21 at 1543, Until Discontinu ed, Routine, Intra-op [facility] penicillin g potassium 5 Million Units in NaCl 0.9% (NS) 100 mL MINI-BAG 2021-02 0 18:15: 00 11-26 19:13 :00 No 510 5 Million Units, IV Piggyback, ONCE, 1 dose, On 11/26/21 at 1315, Administer over 60 Minutes, 100 mL
Reas on for Anti-Infec tive: Empiric Non-Surgic al Prophylaxi s
Durat ion of therapy: 72 hours [facility] NaCl 0.9% (NS) IV infusion 1,000 mL 2021-02 0 18:00: 00 11-27 12:40 :54 No 1000mL at 50 mL/hr, IV Infusion, CONTINUOUS , Starting on 11/26/21 at 1300, Until 11/27/21 at 0740, Routine [facility] oxytocin (PITOCIN) 30 units in NS 500 mL IV infusion 2021-02 0 14:31: 25 11-27 02:11 :24 No 2mU/min at 2-40 mL/hr, IV Infusion, TITRATE, Starting on 11/26/21 at 0931, Until 11/26/21 at 2111, Routine [facility] FENTanyl PF (SUBLIMAZE (PF)) injection 100 mcg 2021-02 0 13:50: 58 11-27 12:40 :54 No 100ug 100 mcg, Slow IV Push, Q1HPRN, Starting on 11/26/21 at 0850, Until 11/27/21 at 0740, Routine, Pain (scale 4-6), Pain (scale 7-10) [facility] misoprostol (CYTOTEC) quarter-tab let 25 mcg 2021-02 0 13:45: 00 11-26 13:22 :00 No 25ug 25 mcg, Vaginal, ONCE, 1 dose, On 11/26/21 at 0845, Routine [facility] butalbital- acetaminoph en-caff (ESGIC) 50-325-40 mg tablet 1 tablet 2021-02 008 09:45: 00 11-26 08:57 :00 No 1{tbl} 1 tablet, Oral, ONCE NOW, 1 dose, On 11/26/21 at 0445, Routine [facility] magnesium sulfate in water for injection 20 gram/500 mL (4 %) IV infusion 2021-02 0-08 09:00: 00 Yes 2g/h 2 g/hr (50 mL/hr), IV Infusion, CONTINUOUS , Starting on 11/26/21 at 0400, Until Discontinu ed, Routine [facility] D5W 0.45% NaCl (1/2NS) IV infusion 1,000 mL 2021-02 0 09:00: 00 11-27 12:40 :54 No 1000mL at 75 mL/hr, 1,000 mL, IV Infusion, CONTINUOUS , Starting on 11/26/21 at 0400, Until 11/27/21 at 0740, Routine [facility] promethazin e 6.25 mg/5 mL solution 9 00:00: 00 11-28 00:00 :00 No [id number] 12.5mg Take 10 mL by mouth every 4 (four) hours as needed for Nausea and Vomiting (N/V). [facility] promethazin e 6.25 mg/5 mL solution 8 00:00: 00 11-09 00:00 :00 No [id number] 12.5mg Take 10 mL by mouth every 4 (four) hours as needed for Nausea and Vomiting (N/V). [facility] promethazin e 6.25 mg/5 mL solution 8-11 00:00: 00 10-18 00:00 :00 No [id number] 12.5mg Take 10 mL by mouth every 4 (four) hours as needed for Nausea and Vomiting (N/V). [facility] promethazin e 6.25 mg/5 mL solution 6-23 00:00: 00 09-15 00:00 :00 No [id number] 12.5mg Take 10 mL by mouth every 4 (four) hours as needed for Nausea and Vomiting (N/V). [facility] proMETHazin e 25 mg tablet 5-29 00:00: 00 09-15 00:00 :00 No [id number] 25mg Take 1 tablet by mouth every 6 (six) hours as needed for Nausea and Vomiting (N/V). [facility] promethazin e 6.25 mg/5 mL solution 06-24 00:00: 00 06-29 00:00 :00 No [id number] 12.5mg Take 10 mL by mouth every 4 (four) hours as needed for Nausea and Vomiting (N/V). [facility] vit 33-iron-fol ic-dha (SELECT-OB + DHA) 29 mg iron-1 mg -250 mg combo pack 06-23 00:00: 00 07-17 00:00 :00 No [id number] 1{packe t} Take 1 Packet by mouth daily. [facility] proMETHazin e 25 mg suppository 06-22 00:00: 00 09-15 00:00 :00 No [id number] 25mg Insert 1 Suppositor y into rectum every 4 (four) hours as needed for Nausea and Vomiting (N/V). [facility] Immunizations Ordered Immunization Name Filled Immunization Name Date Status Comments Source HPV9 2022-12-25 00:00:00 Completed [facility] HPV9 2022-12-25 00:00:00 Completed [facility] HPV9 2022-12-25 00:00:00 Completed [facility] HPV9 2022-12-25 00:00:00 Completed [facility] HPV9 2022-12-25 00:00:00 Completed [facility] HPV9 2022-12-25 00:00:00 Completed [facility] HPV9 2022-12-25 00:00:00 Completed [facility] TDAP 2021-09-29 00:00:00 Completed [facility] TDAP 2021-09-29 00:00:00 Completed [facility] TDAP 2021-09-29 00:00:00 Completed [facility] TDAP 2021-09-29 00:00:00 Completed [facility] TDAP 2021-09-29 00:00:00 Completed [facility] TDAP 2021-09-29 00:00:00 Completed [facility] TDAP 2021-09-29 00:00:00 Completed [facility] TDAP 2021-09-29 00:00:00 Completed [facility] TDAP 2021-09-29 00:00:00 Completed [facility] TDAP 2021-09-29 00:00:00 Completed [facility] TDAP 2021-09-29 00:00:00 Completed [facility] TDAP 2021-09-29 00:00:00 Completed [facility] TDAP 2021-09-29 00:00:00 Completed [facility] TDAP 2021-09-29 00:00:00 Completed [facility] TDAP 2021-09-29 00:00:00 Completed [facility] TDAP 2021-09-29 00:00:00 Completed [facility] TDAP 2021-09-29 00:00:00 Completed [facility] TDAP 2021-09-29 00:00:00 Completed [facility] TDAP 2021-09-29 00:00:00 Completed [facility] TDAP 2021-09-29 00:00:00 Completed [facility] TDAP 2021-09-29 00:00:00 Completed [facility] TDAP 2021-09-29 00:00:00 Completed [facility] TDAP 2021-09-29 00:00:00 Completed [facility] TDAP 2021-09-29 00:00:00 Completed [facility] TDAP 2009-10-06 00:00:00 Completed HEPATITIS [...] Trivalent 1997-11-23 00:00:00 Completed TDAP Unknown Completed [facility] TDAP Unknown Completed [facility] TDAP Unknown Completed [facility] TDAP Unknown Completed [facility] TDAP Unknown Completed [facility] TDAP Unknown Completed [facility] DTaP, Unspecified Formulation Unknown Completed [facility] HEPATITIS A Unknown Completed [facility] Hep B, Adol or Pedi Dosage Unknown Completed [facility] HIB 4 Dose Schedule Unknown Completed [facility] Haemophilus influenzae type b vaccine, conjugate unspecified formulation Unknown Completed [facility] HPV Unknown Completed [facility] Meningococcal Polysaccharide (groups A, C, Y and W-135) conjugate vaccine (MCV4P) Unknown Completed [facility] MMR Unknown Completed [facility] IPV Unknown Completed [facility] Poliovirus, Live, Oral, Trivalent Unknown Completed [facility] HPV9 Unknown Completed [facility] HEPATITIS A Unknown Completed [facility] Haemophilus influenzae type b vaccine, conjugate unspecified formulation Unknown Completed [facility] HPV Unknown Completed [facility] Meningococcal Polysaccharide (groups A, C, Y and W-135) conjugate vaccine (MCV4P) Unknown Completed [facility] HPV9 Unknown Completed [facility] TDAP Unknown Completed [facility] DTaP, Unspecified Formulation Unknown Completed [facility] Hep B, Adol or Pedi Dosage Unknown Completed [facility] HIB 4 Dose Schedule Unknown Completed [facility] MMR Unknown Completed [facility] IPV Unknown Completed [facility] Poliovirus, Live, Oral, Trivalent Unknown Completed [facility] TDAP Unknown Completed [facility] DTaP, Unspecified Formulation Unknown Completed [facility] HEPATITIS A Unknown Completed [facility] Hep B, Adol or Pedi Dosage Unknown Completed [facility] HIB 4 Dose Schedule Unknown Completed [facility] Haemophilus influenzae type b vaccine, conjugate unspecified formulation Unknown Completed [facility] HPV Unknown Completed [facility] Meningococcal Polysaccharide (groups A, C, Y and W-135) conjugate vaccine (MCV4P) Unknown Completed [facility] MMR Unknown Completed [facility] IPV Unknown Completed [facility] Poliovirus, Live, Oral, Trivalent Unknown Completed [facility] HPV9 Unknown Completed [facility] TDAP Unknown Completed [facility] DTaP, Unspecified Formulation Unknown Completed [facility] HEPATITIS A Unknown Completed [facility] Hep B, Adol or Pedi Dosage Unknown Completed [facility] HIB 4 Dose Schedule Unknown Completed [facility] Haemophilus influenzae type b vaccine, conjugate unspecified formulation Unknown Completed [facility] HPV Unknown Completed [facility] Meningococcal Polysaccharide (groups A, C, Y and W-135) conjugate vaccine (MCV4P) Unknown Completed [facility] MMR Unknown Completed [facility] IPV Unknown Completed [facility] Poliovirus, Live, Oral, Trivalent Unknown Completed [facility] HPV9 Unknown Completed [facility] TDAP Unknown Completed [facility] DTaP, Unspecified Formulation Unknown Completed [facility] HEPATITIS A Unknown Completed [facility] Hep B, Adol or Pedi Dosage Unknown Completed [facility] HIB 4 Dose Schedule Unknown Completed [facility] Haemophilus influenzae type b vaccine, conjugate unspecified formulation Unknown Completed [facility] HPV Unknown Completed [facility] Meningococcal Polysaccharide (groups A, C, Y and W-135) conjugate vaccine (MCV4P) Unknown Completed [facility] MMR Unknown Completed [facility] IPV Unknown Completed [facility] Poliovirus, Live, Oral, Trivalent Unknown Completed [facility] HPV9 Unknown Completed [facility] TDAP Unknown Completed [facility] DTaP, Unspecified Formulation Unknown Completed [facility] HEPATITIS A Unknown [facility] Hep B, Adol or Pedi Dosage Unknown Completed [facility] HIB 4 Dose Schedule Unknown Completed [facility] Haemophilus influenzae type b vaccine, conjugate unspecified formulation Unknown Completed [facility] HPV Unknown Completed [facility] Meningococcal Polysaccharide (groups A, C, Y and W-135) conjugate vaccine (MCV4P) Unknown Completed [facility] MMR Unknown Completed [facility] IPV Unknown Completed [facility] Poliovirus, Live, Oral, Trivalent Unknown Completed [facility] HPV9 Unknown Completed [facility] HEPATITIS A Unknown Completed [facility] Haemophilus influenzae type b vaccine, conjugate unspecified formulation Unknown Completed [facility] HPV Unknown Completed [facility] Meningococcal Polysaccharide (groups A, C, Y and W-135) conjugate vaccine (MCV4P) Unknown Completed [facility] HPV9 Unknown Completed [facility] TDAP Unknown Completed [facility] DTaP, Unspecified Formulation Unknown Completed [facility] Hep B, Adol or Pedi Dosage Unknown Completed [facility] HIB 4 Dose Schedule Unknown Completed [facility] MMR Unknown Completed [facility] IPV Unknown Completed [facility] Poliovirus, Live, Oral, Trivalent Unknown Completed [facility] TDAP Unknown Completed [facility] DTaP, Unspecified Formulation Unknown Completed [facility] HEPATITIS A Unknown Completed [facility] Hep B, Adol or Pedi Dosage Unknown Completed [facility] HIB 4 Dose Schedule Unknown Completed [facility] Haemophilus influenzae type b vaccine, conjugate unspecified formulation Unknown Completed [facility] HPV Unknown Completed [facility] Meningococcal Polysaccharide (groups A, C, Y and W-135) conjugate vaccine (MCV4P) Unknown Completed [facility] MMR Unknown Completed [facility] IPV Unknown Completed [facility] Poliovirus, Live, Oral, Trivalent Unknown Completed [facility] HPV9 Unknown Completed [facility] TDAP Unknown Completed [facility] DTaP, Unspecified Formulation Unknown Completed [facility] HEPATITIS A Unknown Completed [facility] Hep B, Adol or Pedi Dosage Unknown Completed [facility] HIB 4 Dose Schedule Unknown Completed [facility] Haemophilus influenzae type b vaccine, conjugate unspecified formulation Unknown Completed [facility] HPV Unknown Completed [facility] Meningococcal Polysaccharide (groups A, C, Y and W-135) conjugate vaccine (MCV4P) Unknown Completed [facility] MMR Unknown Completed [facility] IPV Unknown Completed [facility] Poliovirus, Live, Oral, Trivalent Unknown Completed [facility] HPV9 Unknown Completed [facility] TDAP Unknown Completed [facility] DTaP, Unspecified Formulation Unknown Completed [facility] HEPATITIS A Unknown Completed [facility] Hep B, Adol or Pedi Dosage Unknown Completed [facility] HIB 4 Dose Schedule Unknown Completed [facility] Haemophilus influenzae type b vaccine, conjugate unspecified formulation Unknown Completed [facility] HPV Unknown Completed [facility] Meningococcal Polysaccharide (groups A, C, Y and W-135) conjugate vaccine (MCV4P) Unknown Completed [facility] MMR Unknown Completed [facility] IPV Unknown Completed [facility] Poliovirus, Live, Oral, Trivalent Unknown Completed [facility] HPV9 Unknown Completed [facility] TDAP Unknown Completed [facility] DTaP, Unspecified Formulation Unknown Completed [facility] HEPATITIS A Unknown Completed [facility] Hep B, Adol or Pedi Dosage Unknown Completed [facility] HIB 4 Dose Schedule Unknown Completed [facility] Haemophilus influenzae type b vaccine, conjugate unspecified formulation Unknown Completed [facility] HPV Unknown Completed [facility] Meningococcal Polysaccharide (groups A, C, Y and W-135) conjugate vaccine (MCV4P) Unknown Completed [facility] MMR Unknown Completed [facility] IPV Unknown Completed [facility] Poliovirus, Live, Oral, Trivalent Unknown Completed [facility] HPV9 Unknown Completed [facility] HEPATITIS A Unknown Completed [facility] Haemophilus influenzae type b vaccine, conjugate unspecified formulation Unknown Completed [facility] HPV Unknown Completed [facility] Meningococcal Polysaccharide (groups A, C, Y and W-135) conjugate vaccine (MCV4P) Unknown Completed [facility] HPV9 Unknown Completed [facility] TDAP Unknown Completed [facility] DTaP, Unspecified Formulation Unknown Completed [facility] Hep B, Adol or Pedi Dosage Unknown Completed [facility] HIB 4 Dose Schedule Unknown Completed [facility] MMR Unknown Completed [facility] IPV Unknown Completed [facility] Poliovirus, Live, Oral, Trivalent Unknown Completed [facility] TDAP Unknown Completed [facility] DTaP, Unspecified Formulation Unknown Completed [facility] HEPATITIS A Unknown Completed [facility] Hep B, Adol or Pedi Dosage Unknown Completed [facility] HIB 4 Dose Schedule Unknown Completed [facility] Haemophilus influenzae type b vaccine, conjugate unspecified formulation Unknown Completed [facility] HPV Unknown Completed [facility] Meningococcal Polysaccharide (groups A, C, Y and W-135) conjugate vaccine (MCV4P) Unknown Completed [facility] MMR Unknown Completed [facility] IPV Unknown Completed [facility] Poliovirus, Live, Oral, Trivalent Unknown Completed [facility] HPV9 Unknown Completed [facility] TDAP Unknown Completed [facility] DTaP, Unspecified Formulation Unknown Completed [facility] HEPATITIS A Unknown Completed [facility] Hep B, Adol or Pedi Dosage Unknown Completed [facility] HIB 4 Dose Schedule Unknown Completed [facility] Haemophilus influenzae type b vaccine, conjugate unspecified formulation Unknown Completed [facility] HPV Unknown Completed [facility] Meningococcal Polysaccharide (groups A, C, Y and W-135) conjugate vaccine (MCV4P) Unknown Completed [facility] MMR Unknown Completed [facility] IPV Unknown Completed [facility] Poliovirus, Live, Oral, Trivalent Unknown Completed [facility] HPV9 Unknown Completed [facility] TDAP Unknown Completed [facility] DTaP, Unspecified Formulation Unknown Completed [facility] HEPATITIS A Unknown Completed [facility] Hep B, Adol or Pedi Dosage Unknown Completed [facility] HIB 4 Dose Schedule Unknown Completed [facility] Haemophilus influenzae type b vaccine, conjugate unspecified formulation Unknown Completed [facility] HPV Unknown Completed [facility] Meningococcal Polysaccharide (groups A, C, Y and W-135) conjugate vaccine (MCV4P) Unknown Completed [facility] MMR Unknown Completed [facility] IPV Unknown Completed [facility] Poliovirus, Live, Oral, Trivalent Unknown Completed [facility] HPV9 Unknown Completed [facility] TDAP Unknown Completed [facility] DTaP, Unspecified Formulation Unknown Completed [facility] HEPATITIS A Unknown Com[facility] Hep B, Adol or Pedi Dosage Unknown Completed [facility] HIB 4 Dose Schedule Unknown Completed [facility] Haemophilus influenzae type b vaccine, conjugate unspecified formulation Unknown Completed [facility] HPV Unknown Completed [facility] Meningococcal Polysaccharide (groups A, C, Y and W-135) conjugate vaccine (MCV4P) Unknown Completed [facility] MMR Unknown Completed [facility] IPV Unknown Completed [facility] Poliovirus, Live, Oral, Trivalent Unknown Completed [facility] HPV9 Unknown Completed [facility] HEPATITIS A Unknown Completed [facility] Haemophilus influenzae type b vaccine, conjugate unspecified formulation Unknown Completed [facility] HPV Unknown Completed [facility] Meningococcal Polysaccharide (groups A, C, Y and W-135) conjugate vaccine (MCV4P) Unknown Completed [facility] HPV9 Unknown Completed [facility] TDAP Unknown Completed [facility] DTaP, Unspecified Formulation Unknown Completed [facility] HEPATITIS A Unknown Completed [facility] Hep B, Adol or Pedi Dosage Unknown Completed [facility] HIB 4 Dose Schedule Unknown Completed [facility] Haemophilus influenzae type b vaccine, conjugate unspecified formulation Unknown Completed [facility] HPV Unknown Completed [facility] Meningococcal Polysaccharide (groups A, C, Y and W-135) conjugate vaccine (MCV4P) Unknown Completed [facility] MMR Unknown Completed [facility] IPV Unknown Completed [facility] Poliovirus, Live, Oral, Trivalent Unknown Completed [facility] HPV9 Unknown Completed [facility] TDAP Unknown Completed [facility] DTaP, Unspecified Formulation Unknown Completed [facility] HEPATITIS A Unknown Completed [facility] Hep B, Adol or Pedi Dosage Unknown Completed [facility] HIB 4 Dose Schedule Unknown Completed [facility] Haemophilus influenzae type b vaccine, conjugate unspecified formulation Unknown Completed [facility] HPV Unknown Completed [facility] Meningococcal Polysaccharide (groups A, C, Y and W-135) conjugate vaccine (MCV4P) Unknown Completed [facility] MMR Unknown Completed [facility] IPV Unknown Completed [facility] Poliovirus, Live, Oral, Trivalent Unknown Completed [facility] HPV9 Unknown Completed [facility] TDAP Unknown Completed [facility] DTaP, Unspecified Formulation Unknown Completed [facility] HEPATITIS A Unknown Completed [facility] Hep B, Adol or Pedi Dosage Unknown Completed [facility] HIB 4 Dose Schedule Unknown Completed [facility] Haemophilus influenzae type b vaccine, conjugate unspecified formulation Unknown Completed [facility] HPV Unknown Completed [facility] Meningococcal Polysaccharide (groups A, C, Y and W-135) conjugate vaccine (MCV4P) Unknown Completed [facility] MMR Unknown Completed [facility] IPV Unknown Completed [facility] Poliovirus, Live, Oral, Trivalent Unknown Completed [facility] HPV9 Unknown Completed [facility] TDAP Unknown Completed [facility] DTaP, Unspecified Formulation Unknown Completed [facility] HEPATITIS A Unknown Completed [facility] Hep B, Adol or Pedi Dosage Unknown Completed [facility] HIB 4 Dose Schedule Unknown Completed [facility] Haemophilus influenzae type b vaccine, conjugate unspecified formulation Unknown Completed [facility] HPV Unknown Completed [facility] Meningococcal Polysaccharide (groups A, C, Y and W-135) conjugate vaccine (MCV4P) Unknown Completed [facility] MMR Unknown Completed [facility] IPV Unknown Completed [facility] Poliovirus, Live, Oral, Trivalent Unknown Completed [facility] HPV9 Unknown Completed [facility] TDAP Unknown Completed [facility] DTaP, Unspecified Formulation Unknown Completed [facility] Hep B, Adol or Pedi Dosage Unknown Completed [facility] HIB 4 Dose Schedule Unknown Completed [facility] MMR Unknown Completed [facility] IPV Unknown Completed [facility] Poliovirus, Live, Oral, Trivalent Unknown Completed [facility] TDAP Unknown Completed [facility] DTaP, Unspecified Formulation Unknown Completed [facility] HEPATITIS A Unknown Completed [facility] Hep B, Adol or Pedi Dosage Unknown Completed [facility] HIB 4 Dose Schedule Unknown Completed [facility] Haemophilus influenzae type b vaccine, conjugate unspecified formulation Unknown Completed [facility] HPV Unknown Completed [facility] Meningococcal Polysaccharide (groups A, C, Y and W-135) conjugate vaccine (MCV4P) Unknown Completed [facility] MMR Unknown Completed [facility] IPV Unknown Completed [facility] Poliovirus, Live, Oral, Trivalent Unknown Completed [facility] HPV9 Unknown Completed [facility] TDAP Unknown Completed [facility] DTaP, Unspecified Formulation Unknown Completed [facility] HEPATITIS A Unknown Completed [facility] Hep B, Adol or Pedi Dosage Unknown Completed [facility] HIB 4 Dose Schedule Unknown Completed [facility] Haemophilus influenzae type b vaccine, conjugate unspecified formulation Unknown Completed [facility] HPV Unknown Completed [facility] Meningococcal Polysaccharide (groups A, C, Y and W-135) conjugate vaccine (MCV4P) Unknown Completed [facility] MMR Unknown Completed [facility] IPV Unknown Completed [facility] Poliovirus, Live, Oral, Trivalent Unknown Completed [facility] HPV9 Unknown Completed [facility] TDAP Unknown Completed [facility] DTaP, Unspecified Formulation Unknown Completed [facility] HEPATITIS A Unknown Completed [facility] Hep B, Adol or Pedi Dosage Unknown Completed [facility] HIB 4 Dose Schedule Unknown Completed [facility] Haemophilus influenzae type b vaccine, conjugate unspecified formulation Unknown Completed [facility] HPV Unknown Completed [facility] Meningococcal Polysaccharide (groups A, C, Y and W-135) conjugate vaccine (MCV4P) Unknown Completed [facility] MMR Unknown Completed [facility] IPV Unknown Completed [facility] Poliovirus, Live, Oral, Trivalent Unknown Completed [facility] HPV9 Unknown Completed [facility] TDAP Unknown Completed [facility] DTaP, Unspecified Formulation Unknown Completed [facility] HEPATITIS A Unknown Completed [facility] Hep B, Adol or Pedi Dosage Unknown Completed [facility] HIB 4 Dose Schedule Unknown Completed [facility] Haemophilus influenzae type b vaccine, conjugate unspecified formulation Unknown Completed [facility] HPV Unknown Completed [facility] Meningococcal Polysaccharide (groups A, C, Y and W-135) conjugate vaccine (MCV4P) Unknown Completed [facility] MMR Unknown Completed [facility] IPV Unknown Completed [facility] Poliovirus, Live, Oral, Trivalent Unknown Completed [facility] HPV9 Unknown Completed [facility] TDAP Unknown Completed [facility] DTaP, Unspecified Formulation Unknown Completed [facility] HEPATITIS A Unknown Completed [facility] Hep B, Adol or Pedi Dosage Unknown Completed [facility] HIB 4 Dose Schedule Unknown Completed [facility] Haemophilus influenzae type b vaccine, conjugate unspecified formulation Unknown Completed [facility] HPV Unknown Completed [facility] Meningococcal Polysaccharide (groups A, C, Y and W-135) conjugate vaccine (MCV4P) Unknown Completed [facility] MMR Unknown Completed [facility] IPV Unknown Completed [facility] Poliovirus, Live, Oral, Trivalent Unknown Completed [facility] HPV9 Unknown Completed [facility] TDAP Unknown Completed [facility] DTaP, Unspecified Formulation Unknown Completed [facility] HEPATITIS A Unknown Completed [facility] Hep B, Adol or Pedi Dosage Unknown Completed [facility] HIB 4 Dose Schedule Unknown Completed [facility] Haemophilus influenzae type b vaccine, conjugate unspecified formulation Unknown Completed [facility] HPV Unknown Completed [facility] Meningococcal Polysaccharide (groups A, C, Y and W-135) conjugate vaccine (MCV4P) Unknown Completed [facility] MMR Unknown Completed [facility] IPV Unknown Completed [facility] Poliovirus, Live, Oral, Trivalent Unknown Completed [facility] HPV9 Unknown Completed [facility] TDAP Unknown Completed [facility] DTaP, Unspecified Formulation Unknown Completed [facility] HEPATITIS A Unknown Completed [facility] Hep B, Adol or Pedi Dosage Unknown Completed [facility] HIB 4 Dose Schedule Unknown Completed [facility] Haemophilus influenzae type b vaccine, conjugate unspecified formulation Unknown Completed [facility] HPV Unknown Completed [facility] Meningococcal Polysaccharide (groups A, C, Y and W-135) conjugate vaccine (MCV4P) Unknown Completed [facility] MMR Unknown Completed [facility] IPV Unknown Completed [facility] Poliovirus, Live, Oral, Trivalent Unknown Completed [facility] HPV9 Unknown Completed [facility] TDAP Unknown Completed [facility] DTaP, Unspecified Formulation Unknown Completed [facility] HEPATITIS A Unknown Completed [facility] Hep B, Adol or Pedi Dosage Unknown Completed [facility] HIB 4 Dose Schedule Unknown Completed [facility] Haemophilus influenzae type b vaccine, conjugate unspecified formulation Unknown Completed [facility] HPV Unknown Completed [facility] Meningococcal Polysaccharide (groups A, C, Y and W-135) conjugate vaccine (MCV4P) Unknown Completed [facility] MMR Unknown Completed [facility] IPV Unknown Completed [facility] Poliovirus, Live, Oral, Trivalent Unknown Completed [facility] HPV9 Unknown Completed [facility] HEPATITIS A Unknown Completed [facility] Haemophilus influenzae type b vaccine, conjugate unspecified formulation Unknown Completed [facility] HPV Unknown Completed [facility] Meningococcal Polysaccharide (groups A, C, Y and W-135) conjugate vaccine (MCV4P) Unknown Completed [facility] HPV9 Unknown Completed [facility] TDAP Unknown Completed [facility] DTaP, Unspecified Formulation Unknown Completed [facility] Hep B, Adol or Pedi Dosage Unknown Completed [facility] HIB 4 Dose Schedule Unknown Completed [facility] MMR Unknown Completed [facility] IPV Unknown Completed [facility] Poliovirus, Live, Oral, Trivalent Unknown Completed [facility] HEPATITIS A Unknown Completed [facility] Haemophilus influenzae type b vaccine, conjugate unspecified formulation Unknown Completed [facility] HPV Unknown Completed [facility] Meningococcal Polysaccharide (groups A, C, Y and W-135) conjugate vaccine (MCV4P) Unknown Completed [facility] HPV9 Unknown Completed [facility] TDAP Unknown Completed [facility] DTaP, Unspecified Formulation Unknown Completed [facility] Hep B, Adol or Pedi Dosage Unknown Completed [facility] HIB 4 Dose Schedule Unknown Completed [facility] MMR Unknown Completed [facility] IPV Unknown Completed [facility] Poliovirus, Live, Oral, Trivalent Unknown Completed [facility] HEPATITIS A Unknown Completed [facility] Haemophilus influenzae type b vaccine, conjugate unspecified formulation Unknown Completed [facility] HPV Unknown Completed [facility] Meningococcal Polysaccharide (groups A, C, Y and W-135) conjugate vaccine (MCV4P) Unknown Completed [facility] HPV9 Unknown Completed [facility] TDAP Unknown Completed [facility] DTaP, Unspecified Formulation Unknown Completed [facility] Hep B, Adol or Pedi Dosage Unknown Com[facility] [facility] H[facility] 4 Dose Schedule Unknown Completed [facility] MMR Unknown Completed [facility] IPV Unknown Completed [facility] Poliovirus, Live, Oral, Trivalent Unknown Completed [facility] TDAP Unknown Completed [facility] DTaP, Unspecified Formulation Unknown Completed [facility] HEPATITIS A Unknown Completed [facility] Hep B, Adol or Pedi Dosage Unknown Completed [facility] HIB 4 Dose Schedule Unknown Completed [facility] Haemophilus influenzae type b vaccine, conjugate unspecified formulation Unknown Completed [facility] HPV Unknown Completed [facility] Meningococcal Polysaccharide (groups A, C, Y and W-135) conjugate vaccine (MCV4P) Unknown Completed [facility] MMR Unknown Completed [facility] IPV Unknown Completed [facility] Poliovirus, Live, Oral, Trivalent Unknown Completed [facility] HPV9 Unknown Completed [facility] TDAP Unknown Completed [facility] DTaP, Unspecified Formulation Unknown Completed [facility] HEPATITIS A Unknown Completed [facility] Hep B, Adol or Pedi Dosage Unknown Completed [facility] HIB 4 Dose Schedule Unknown Completed [facility] Haemophilus influenzae type b vaccine, conjugate unspecified formulation Unknown Completed [facility] HPV Unknown Completed [facility] Meningococcal Polysaccharide (groups A, C, Y and W-135) conjugate vaccine (MCV4P) Unknown Completed [facility] MMR Unknown Completed [facility] IPV Unknown Completed [facility] Poliovirus, Live, Oral, Trivalent Unknown Completed [facility] HPV9 Unknown Completed [facility] TDAP Unknown Completed [facility] DTaP, Unspecified Formulation Unknown Completed [facility] HEPATITIS A Unknown Completed [facility] Hep B, Adol or Pedi Dosage Unknown Completed [facility] HIB 4 Dose Schedule Unknown Completed [facility] Haemophilus influenzae type b vaccine, conjugate unspecified formulation Unknown Completed [facility] HPV Unknown Completed [facility] Meningococcal Polysaccharide (groups A, C, Y and W-135) conjugate vaccine (MCV4P) Unknown Completed [facility] MMR Unknown Completed [facility] IPV Unknown Completed [facility] Poliovirus, Live, Oral, Trivalent Unknown Completed [facility] HPV9 Unknown Completed [facility] TDAP Unknown Completed [facility] DTaP, Unspecified Formulation Unknown Completed [facility] HEPATITIS A Unknown Completed [facility] Hep B, Adol or Pedi Dosage Unknown Completed [facility] HIB 4 Dose Schedule Unknown Completed [facility] Haemophilus influenzae type b vaccine, conjugate unspecified formulation Unknown Completed [facility] HPV Unknown Completed [facility] Meningococcal Polysaccharide (groups A, C, Y and W-135) conjugate vaccine (MCV4P) Unknown Completed [facility] MMR Unknown Completed [facility] IPV Unknown Completed [facility] Poliovirus, Live, Oral, Trivalent Unknown Completed [facility] HPV9 Unknown Completed [facility] TDAP Unknown Completed [facility] DTaP, Unspecified Formulation Unknown Completed [facility] HEPATITIS A Unknown Completed [facility] Hep B, Adol or Pedi Dosage Unknown Completed [facility] HIB 4 Dose Schedule Unknown Completed [facility] Haemophilus influenzae type b vaccine, conjugate unspecified formulation Unknown Completed [facility] HPV Unknown Completed [facility] Meningococcal Polysaccharide (groups A, C, Y and W-135) conjugate vaccine (MCV4P) Unknown Completed [facility] MMR Unknown Completed [facility] IPV Unknown Completed [facility] Poliovirus, Live, Oral, Trivalent Unknown Completed [facility] HPV9 Unknown Completed [facility] Vital Signs Vital Name Observation Time Observation Value Comments S ource Systolic blood pressure 2024-03-16 08:17:00 152 mm[Hg] [facility] Diastolic blood pressure 2024-03-16 08:17:00 114 mm[Hg] [facility] Heart rate 2024-03-16 08:17:00 114 /min [facility] Body temperature 2024-03-16 08:17:00 36.78 Ava [facility] Respiratory rate 2024-03-16 08:17:00 20 /min [facility] Body height 2024-03-16 08:17:00 165.1 cm [facility] Body weight 2024-03-16 08:17:00 104.781 kg [facility] BMI 2024-03-16 08:17:00 38.44 kg/m2 [facility] Oxygen saturation in Arterial blood by Pulse oximetry 2024-03-16 08:17:00 100 /min [facility] Systolic blood pressure 2024-02-27 16:52:00 118 mm[Hg] [facility] Diastolic blood pressure 2024-02-27 16:52:00 82 mm[Hg] [facility] Heart rate 2024-02-27 16:52:00 113 /min [facility] Body temperature 2024-02-27 16:52:00 36.28 Ava [facility] Respiratory rate 2024-02-27 16:52:00 18 /min [facility] Body height 2024-02-27 16:52:00 166.4 cm [facility] Body weight 2024-02-27 16:52:00 117.164 kg [facility] BMI 2024-02-27 16:52:00 42.33 kg/m2 [facility] Oxygen saturation in Arterial blood by Pulse oximetry 2024-02-27 16:52:00 99 /min [facility] Systolic blood pressure 2024-02-22 08:00:00 172 mm[Hg] [facility] Diastolic blood pressure 2024-02-22 08:00:00 90 mm[Hg] [facility] Heart rate 2024-02-22 08:00:00 89 /min [facility] Body temperature 2024-02-22 08:00:00 36.89 Ava [facility] Respiratory rate 2024-02-22 08:00:00 20 /min [facility] Oxygen saturation in Arterial blood by Pulse oximetry 2024-02-22 08:00:00 100 /min [facility] Body height 2024-02-22 05:52:00 165.1 cm [facility] Body weight 2024-02-22 05:52:00 108.863 kg [facility] BMI 2024-02-22 05:52:00 39.94 kg/m2 [facility] Systolic blood pressure 2024-01-29 19:50:00 125 mm[Hg] [facility] Diastolic blood pressure 2024-01-29 19:50:00 85 mm[Hg] [facility] Heart rate 2024-01-29 19:50:00 103 [facility] Respiratory rate 2024-01-29 19:50:00 15 /min [facility] Oxygen saturation in Arterial blood by Pulse oximetry 2024-01-29 19:50:00 96 /min [facility] Body temperature 2024-01-29 18:30:00 36.33 Ava [facility] Body height 2024-01-21 21:15:[address] [facility] Body weight 2024-01-21 21:15:00 122.471 kg [facility] BMI 2024-01-21 21:15:00 44.93 kg/m2 [facility] Systolic blood pressure 2024-01-29 18:35:00 127 mm[Hg] [facility] Diastolic blood pressure 2024-01-29 18:35:00 82 mm[Hg] [facility] Heart rate 2024-01-29 18:35:00 114 /min [facility] Respiratory rate 2024-01-29 18:35:00 18 /min [facility] Oxygen saturation in Arterial blood by Pulse oximetry 2024-01-29 18:35:00 100 /min [facility] Body temperature 2024-01-29 18:30:00 36.33 Ava [facility] Body height 2024-01-21 21:15:00 165.1 cm [facility] Body weight 2024-01-21 21:15:[address] [facility] BMI 2024-01-21 21:15:00 44.93 kg/m2 [facility] Systolic blood pressure 2024-01-12 11:25:00 156 mm[Hg] [facility] Diastolic blood pressure 2024-01-12 11:25:00 110 mm[Hg] [facility] Respiratory rate 2024-01-12 11:25:00 12 /min [facility] Oxygen saturation in Arterial blood by Pulse oximetry 2024-01-12 11:25:00 97 /min [facility] Heart rate 2024-01-12 11:15:00 88 /min [facility] Body temperature 2024-01-12 09:59:00 36.5 Ava [facility] Body height 2024-01-12 09:59:[address] [facility] Body weight 2024-01-12 09:59:00 122.471 kg [facility] BMI 2024-01-12 09:59:00 44.93 kg/m2 [facility] Systolic blood pressure 2024-01-07 17:05:00 136 mm[Hg] [facility] Diastolic blood pressure 2024-01-07 17:05:00 99 mm[Hg] [facility] Heart rate 2024-01-07 17:05:00 109 /min [facility] Oxygen saturation in Arterial blood by Pulse oximetry 2024-01-07 17:05:00 100 /min [facility] Body temperature 2024-01-07 17:02:00 36.39 Ava [facility] Respiratory rate 2024-01-07 17:02:00 18 /min [facility] Body height 2024-01-07 17:02:00 165.1 cm [facility] Body weight 2024-01-07 17:02:00 122.471 kg [facility] BMI 2024-01-07 17:02:00 44.93 kg/m2 [facility] Systolic blood pressure 2024-01-03 17:27:00 111 mm[Hg] [facility] Diastolic blood pressure 2024-01-03 17:27:00 77 mm[Hg] [facility] Heart rate 2024-01-03 17:27:00 99 /min [facility] Body temperature 2024-01-03 17:27:00 36.5 Ava [facility] Respiratory rate 2024-01-03 17:27:00 18 /min [facility] Body height 2024-01-03 17:27:00 165.1 cm [facility] Body weight 2024-01-03 17:27:00 120.203 kg [facility] BMI 2024-01-03 17:27:00 44.10 kg/m2 [facility] Oxygen saturation in Arterial blood by Pulse oximetry 2024-01-03 17:27:00 99 /min [facility] Systolic blood pressure 2023-12-24 17:35:00 118 mm[Hg] [facility] Diastolic blood pressure 2023-12-24 17:35:00 80 mm[Hg] [facility] Heart rate 2023-12-24 17:35:00 90 /min [facility] Respiratory rate 2023-12-24 17:35:00 15 /min [facility] Oxygen saturation in Arterial blood by Pulse oximetry 2023-12-24 17:35:00 96 /min [facility] Body temperature 2023-12-24 17:05:00 36 Ava [facility] Body height 2023-12-24 16:37:[address] [facility] Body weight 2023-12-24 16:37:[address] [facility] BMI 2023-12-24 16:37:00 44.81 kg/m2 [facility] Systolic blood pressure 2023-12-24 17:05:00 100 mm[Hg] [facility] Diastolic blood pressure 2023-12-24 17:05:00 56 mm[Hg] [facility] Heart rate 2023-12-24 17:05:00 89 /min [facility] Body temperature 2023-12-24 17:05:00 36 Ava [facility] Respiratory rate 2023-12-24 17:05:00 16 /min [facility] Oxygen saturation in Arterial blood by Pulse oximetry 2023-12-24 17:05:00 94 /min [facility] Body height 2023-12-24 16:37:[address] [facility] Body weight 2023-12-24 16:37:00 122.154 kg [facility] BMI 2023-12-24 16:37:00 44.81 kg/m2 [facility] Systolic blood pressure 2023-11-27 19:10:00 111 mm[Hg] [facility] Diastolic blood pressure 2023-11-27 19:10:00 76 mm[Hg] [facility] Heart rate 2023-11-27 19:10:00 111 /min [facility] Respiratory rate 2023-11-27 19:10:00 18 /min [facility] Body height 2023-11-27 19:10:[address] [facility] Body weight 2023-11-27 19:10:00 124.286 kg [facility] BMI 2023-11-27 19:10:00 45.60 kg/m2 [facility] Systolic blood pressure 2023-11-26 20:40:00 112 mm[Hg] [facility] Diastolic blood pressure 2023-11-26 20:40:00 74 mm[Hg] [facility] Heart rate 2023-11-26 20:40:00 103 /min [facility] Body temperature 2023-11-26 20:40:00 36.39 Ava [facility] Body height 2023-11-26 20:40:[address] [facility] Body weight 2023-11-26 20:40:[address] [facility] BMI 2023-11-26 20:40:00 45.46 kg/m2 [facility] Systolic blood pressure 2023-11-22 18:07:00 134 mm[Hg] [facility] Diastolic blood pressure 2023-11-22 18:07:00 89 mm[Hg] [facility] Heart rate 2023-11-22 18:07:00 126 /min [facility] Body temperature 2023-11-22 18:07:00 36.28 Ava [facility] Respiratory rate 2023-11-22 18:07:00 18 /min [facility] Body height 2023-11-22 18:07:[address] [facility] Body weight 2023-11-22 18:07:00 125.102 kg [facility] BMI 2023-11-22 18:07:00 45.90 kg/m2 [facility] Oxygen saturation in Arterial blood by Pulse oximetry 2023-11-22 18:07:00 98 /min [facility] Systolic blood pressure 2023-11-19 14:38:00 127 mm[Hg] [facility] Diastolic blood pressure 2023-11-19 14:38:00 86 mm[Hg] [facility] Heart rate 2023-11-19 14:38:00 107 /min [facility] Body temperature 2023-11-19 14:38:00 36.33 Ava [facility] Respiratory rate 2023-11-19 14:38:00 18 /min [facility] Body height 2023-11-19 14:38:[address] [facility] Body weight 2023-11-19 14:38:00 123.741 kg [facility] BMI 2023-11-19 14:38:00 45.40 kg/m2 [facility] Oxygen saturation in Arterial blood by Pulse oximetry 2023-11-19 14:38:00 98 /min [facility] Systolic blood pressure 2023-11-18 16:30:00 156 mm[Hg] [facility] Diastolic blood pressure 2023-11-18 16:30:00 113 mm[Hg] [facility] Heart rate 2023-11-18 16:30:00 88 /min [facility] Respiratory rate 2023-11-18 16:30:00 18 /min [facility] Oxygen saturation in Arterial blood by Pulse oximetry 2023-11-18 16:30:00 98 /min [facility] Body temperature 2023-11-18 10:28:00 36.72 Ava [facility] Body height 2023-11-18 10:27:[address] [facility] Body weight 2023-11-18 10:27:00 122.471 kg [facility] BMI 2023-11-18 10:27:00 44.93 kg/m2 [facility] Systolic blood pressure 2023-11-08 20:00:00 123 mm[Hg] [facility] Diastolic blood pressure 2023-11-08 20:00:00 91 mm[Hg] [facility] Respiratory rate 2023-11-08 20:00:00 17 /min [facility] Heart rate 2023-11-08 19:00:00 75 /min [facility] Oxygen saturation in Arterial blood by Pulse oximetry 2023-11-08 19:00:00 100 /min [facility] Body temperature 2023-11-08 17:00:00 36.83 Ava [facility] Body height 2023-11-08 15:16:[address] [facility] Body weight 2023-11-08 15:16:[address] [facility] BMI 2023-11-08 15:16:00 44.93 kg/m2 [facility] Systolic blood pressure 2023-08-06 19:07:00 135 mm[Hg] [facility] Diastolic blood pressure 2023-08-06 19:07:00 93 mm[Hg] [facility] Heart rate 2023-08-06 19:04:00 81 /min [facility] Body temperature 2023-08-06 19:04:00 36.11 Ava [facility] Respiratory rate 2023-08-06 19:04:00 18 /min [facility] Body height 2023-08-06 19:04:[address] [facility] Body weight 2023-08-06 19:04:00 140.66 kg [facility] BMI 2023-08-06 19:04:00 51.60 kg/m2 [facility] Oxygen saturation in Arterial blood by Pulse oximetry 2023-08-06 19:04:00 100 /min [facility] Systolic blood pressure 2023-06-21 16:24:00 156 mm[Hg] [facility] Diastolic blood pressure 2023-06-21 16:24:00 98 mm[Hg] [facility] Heart rate 2023-06-21 16:24:00 94 /min [facility] Body temperature 2023-06-21 16:24:00 37.22 Ava [facility] Respiratory rate 2023-06-21 16:24:00 16 /min [facility] Body height 2023-06-21 16:24:[address] [facility] Body weight 2023-06-21 16:24:00 127.007 kg [facility] BMI 2023-06-21 16:24:00 46.59 kg/m2 [facility] Oxygen saturation in Arterial blood by Pulse oximetry 2023-06-21 16:24:00 100 /min [facility] Systolic blood pressure 2023-01-24 20:58:00 132 mm[Hg] [facility] Diastolic blood pressure 2023-01-24 20:58:00 96 mm[Hg] [facility] Heart rate 2023-01-24 20:56:00 95 /min [facility] Body temperature 2023-01-24 20:56:00 36.67 Ava [facility] Respiratory rate 2023-01-24 20:56:00 18 /min [facility] Body height 2023-01-24 20:56:[address] [facility] Body weight 2023-01-24 20:56:[address] [facility] BMI 2023-01-24 20:56:00 50.97 kg/m2 [facility] Oxygen saturation in Arterial blood by Pulse oximetry 2023-01-24 20:56:00 100 /min [facility] Systolic blood pressure 2022-12-25 19:43:00 131 mm[Hg] [facility] Diastolic blood pressure 2022-12-25 19:43:00 86 mm[Hg] [facility] Heart rate 2022-12-25 19:43:00 72 /min [facility] Body temperature 2022-12-25 19:43:00 36.28 Ava [facility] Respiratory rate 2022-12-25 19:43:00 16 /min [facility] Body height 2022-12-25 19:43:[address] [facility] Body weight 2022-12-25 19:43:00 138.347 kg [facility] BMI 2022-12-25 19:43:00 50.75 kg/m2 [facility] Oxygen saturation in Arterial blood by Pulse oximetry 2022-12-25 19:43:00 99 /min [facility] Systolic blood pressure 2022-01-20 20:03:00 135 mm[Hg] [facility] Diastolic blood pressure 2022-01-20 20:03:00 87 mm[Hg] [facility] Heart rate 2022-01-20 20:03:00 87 /min [facility] Body temperature 2022-01-20 20:03:00 36.56 Ava [facility] Respiratory rate 2022-01-20 20:03:00 17 /min [facility] Body height 2022-01-20 20:03:[address] [facility] Body weight 2022-01-20 20:03:[address] [facility] BMI 2022-01-20 20:03:00 43.55 kg/m2 [facility] Systolic blood pressure 2021-12-22 13:14:00 125 mm[Hg] [facility] Diastolic blood pressure 2021-12-22 13:14:00 86 mm[Hg] [facility] Heart rate 2021-12-22 13:14:00 96 /min [facility] Body temperature 2021-12-22 13:14:00 36.61 Ava [facility] Respiratory rate 2021-12-22 13:14:00 20 /min [facility] Body height 2021-12-22 13:14:[address] [facility] Body weight 2021-12-22 13:14:00 108.41 kg [facility] BMI 2021-12-22 13:14:00 39.77 kg/m2 [facility] Systolic blood pressure 2021-11-29 12:00:00 142 mm[Hg] [facility] Diastolic blood pressure 2021-11-29 12:00:00 87 mm[Hg] [facility] Heart rate 2021-11-29 12:00:00 79 /min [facility] Body temperature 2021-11-29 12:00:00 36.72 Ava [facility] Respiratory rate 2021-11-29 12:00:00 18 /min [facility] Oxygen saturation in Arterial blood by Pulse oximetry 2021-11-29 12:00:00 100 /min [facility] Body height 2021-11-26 08:32:[address] [facility] Body weight 2021-11-26 08:32:00 114.034 kg [facility] BMI 2021-11-26 08:32:00 41.84 kg/m2 [facility] Systolic blood pressure 2021-11-23 14:45:00 133 mm[Hg] [facility] Diastolic blood pressure 2021-11-23 14:45:00 102 mm[Hg] [facility] Heart rate 2021-11-23 14:42:00 77 /min [facility] 2021-11-23 14:42:00 36.33 Ava [facility] Respiratory rate 2021-11-23 14:42:00 18 /min [facility] Body height 2021-11-23 14:42:00 [facility] 2021-11-23 14:42:[address] [facility] BMI 2021-11-23 14:42:00 41.89 kg/m2 [facility] Systolic blood pressure 2021-11-11 15:03:00 120 mm[Hg] [facility] Diastolic blood pressure 2021-11-11 15:03:00 82 mm[Hg] [facility] Heart rate 2021-11-11 14:58:00 105 /min [facility] Body temperature 2021-11-11 14:57:00 36.33 Ava [facility] Respiratory rate 2021-11-11 14:57:00 18 /min [facility] Body height 2021-11-11 14:57:00 165.1 cm [facility] Body weight 2021-11-11 14:57:00 113.541 kg [facility] BMI 2021-11-11 14:57:00 41.65 kg/m2 [facility] Systolic blood pressure 2021-10-27 23:55:00 129 mm[Hg] [facility] Diastolic blood pressure 2021-10-27 23:55:00 76 mm[Hg] [facility] Heart rate 2021-10-27 23:55:00 88 /min [facility] Oxygen saturation in Arterial blood by Pulse oximetry 2021-10-27 23:55:00 96 /min [facility] Body temperature 2021-10-27 23:14:00 37 Ava [facility] [facility] Respiratory rate 2021-10-27 23:14:00 18 /min [facility] Body height 2021-10-27 22:26:00 165.1 cm [facility] Body weight 2021-10-27 22:26:00 111.131 kg [facility] BMI 2021-10-27 22:26:00 40.77 kg/m2 [facility] Systolic blood pressure 2021-10-27 18:08:00 140 mm[Hg] [facility] Diastolic blood pressure 2021-10-27 18:08:00 94 mm[Hg] [facility] Heart rate 2021-10-27 18:07:00 88 /min [facility] Body temperature 2021-10-27 18:07:00 35.61 Ava [facility] Respiratory rate 2021-10-27 18:07:00 18 /min [facility] Body weight 2021-10-27 18:07:00 110.224 kg [facility] BMI 2021-10-27 18:07:00 40.44 kg/m2 [facility] Procedures Procedure Date / Time Performed Performing Clinician Source [place] INJECTION AA&/STRD TRIGEM INAL NERVE EACH BRANCH 2024-03-16 08:31:23 Aster Lee [facility] CT ABDOMEN PELVIS W CONTRAST 2024-02-22 07:32:12 Shorty Zambrano [facility] POCT TEST 2024-02-22 06:51:00 Shorty Zambrano [facility] URINALYSIS 2024-02-22 06:48:00 Shorty Zambrano [facility] LIPASE 2024-02-22 06:08:00 Shorty Zambrano [facility] COMP. METABOLIC PANEL ([id number]) 2024-02-22 06:08:00 Shorty Zambrano [facility] CBC WITH DIFF 2024-02-22 06:08:00 Shorty Zambrano [facility] POCT TEST 2024-01-29 16:18:00 Gianni Lopez [facility] POCT TEST 2024-01-29 16:18:00 Gianni Lopez [facility] [address] - [place] LAPAROSCOPY SURG CHOLECYSTECTOMY 2024-01-29 16:15:00 Bryan, Eva [facility] POCT TEST 2024-01-12 10:32:00 Caro Bauer [facility] LIPASE 2024-01-12 10:06:00 Caro Bauer [facility] COMP. METABOLIC PANEL ([id number]) 2024-01-12 10:06:00 Caro Bauer [facility] CBC WITH DIFF 2024-01-12 10:06:00 Caro Bauer [facility] EGD (ENDO) 2023-12-24 17:08:17 Obi-Franklin [facility] EGD (ENDO) 2023-12-24 17:08:17 Jeimy [facility] SURGICAL PATHOLOGY EXAM 2023-12-24 16:57:00 Yisel Hart [facility] ESOPHAGOGASTRODUODENOSCOPY 2023-12-24 16:36:00 Yisel Hart [facility] US OVARY TORSION 2023-11-18 16:33:50 Kelly Simms [facility] URINALYSIS 2023-11-18 15:15:00 aCro Bauer [facility] CT ABDOMEN PELVIS W CONTRAST 2023-11-18 13:38:59 Caro Bauer [facility] LIPASE 2023-11-18 11:10:00 Caro Bauer [facility] TEST, SERUM 2023-11-18 11:10:00 Caro Bauer [facility] COMP. METABOLIC PANEL ([id number]) 2023-11-18 11:10:00 Caro Bauer [facility] CBC WITH DIFF 2023-11-18 11:10:00 Caro Bauer [facility] COMP. METABOLIC PANEL ([id number]) 2023-11-08 16:43:00 Tiff Isabel [facility] LIPASE 2023-11-08 16:01:00 Tiff Isabel [facility] CBC WITH DIFF 2023-11-08 16:01:00 Tiff Isabel [facility] URINALYSIS 2023-11-08 16:01:00 Tiff Isabel [facility] POCT TEST 2023-11-08 16:01:00 Tiff Isabel [facility] ZINC, SERUM 2023-08-06 19:42:00 [facility], [facility] VITAMIN B6, PLASMA 2023-08-06 19:42:00 [facility], [facility] FREE T4 2023-08-06 19:42:00 [facility] THYROID STIMULATING HORMONE 2023-08-06 19:42:00 [facility] COMP. METABOLIC PANEL ([id number]) 2023-08-06 19:42:00 [facility] CBC WITH DIFF 2023-08-06 19:42:00 [facility] GLYCOSYLATED HEMOGLOBIN (A1C) 2023-08-06 19:42:00 [facility] VITAMIN D, 25-OH 2023-08-06 19:42:00 [facility] FREE T3 2023-08-06 19:42:00 [facility] POCT TEST 2023-06-21 16:30:00 Bonita Trivedi [facility] URINALYSIS 2023-06-21 16:29:00 Bonita Trivedi [facility] INSURANCE CORRESPONDENCE 2023-01-15 06:01:00 Doctor Unassigned, [place] [facility] INSURANCE CORRESPONDENCE 2023-01-06 06:01:00 Doctor Unassigned, [place] [facility] GARDASIL 9 (HPV 9V) VACCINE 2022-12-25 20:04:37 Ob-Franklin [facility] POCT TEST 2022-01-20 20:18:00 Jacinta Voss [facility] DME/SUPPLY JUSTIFICATION 2022-01-03 06:01:00 Doctor Unassigned, [place] [facility] CBC WITH DIFF 2021-11-28 08:48:00 Adum, Vanessa Camryn [facility] CENTRAL NEURAXIAL BLOCK 2021-11-26 20:52:15 Wilver Owens [facility] HB ABO GROUPING 2021-11-26 09:30:00 Adum, Vanessa Camryn [facility] LACTATE DEHYDROGENASE 2021-11-26 09:29:00 Adum, Vanessa Camryn [facility] URIC ACID 2021-11-26 09:29:00 Adum, Vanessa Camryn [facility] COMP. METABOLIC PANEL ([id number]) 2021-11-26 09:29:00 Adum, Vanessa Camryn [facility] URINE DRUG (IMMUNOASSAY) - COMPREHENSIVE DRUG SCREEN 2021-11-26 09:29:00 Adum, Vanessa Camryn [facility] CBC WITH DIFF 2021-11-26 09:29:00 Adum, Vanessa Camryn [facility] URINALYSIS 2021-11-26 09:29:00 Adum, Vanessa Camryn [facility] HEPATITIS B SURFACE ANTIGEN 2021-11-26 09:29:00 Adum, Vanessa Camryn [facility] ADC OR THOMPSON ONLY - RPR 2021-11-26 09:29:00 Adum, Vanessa Camryn [facility] HIV 1/2 AG-AB WITH REFLEX 2021-11-26 09:29:00 Adum, Vanessa Camryn [facility] CONSENT/REFUSAL FOR DIAGNOSI S AND TREATMENT 2021-11-26 08:08:59 Doctor Unassigned, [place] [facility] POCT URINALYSIS 2021-11-23 14:56:00 Rodrick Pete [facility] POCT URINALYSIS 2021-11-11 14:58:00 Rodrick Pete [facility] CONSENT/REFUSAL FOR DIAGNOSI S AND TREATMENT 2021-10-27 22:13:12 Doctor Unassigned, [place] [facility] POCT URINALYSIS 2021-10-27 18:21:00 Rodrick Pete [facility] Plan of Care Planned Activity Planned Date Details Comments Source Encounters Start Date/Time End Date/Time Encounter Type Admission Type Attending Clinicians Care Facility Care Department Encounter ID Source 2024-05-28 10:40:00 2024-05-28 10:40:00 Outpatient R [facility] [id number] [facility] 2024-03-16 02:22:00 2024-03-16 02:40:00 Emergency X ASTER LEE PAMALA [facility] ERT [id number] [facility] 2024-03-16 02:22:00 2024-03-16 02:40:00 Emergency Aster Lee [facility] 1.2.840.114 350.1.13.10 4.2.7.2.686 [id number] [facility] 2024-02-11 00:00:00 2024-03-15 18:16:55 Patient Secure Msg BryanEva baird [facility] 1.2.840.114 350.1.13.10 4.2.7.2.686 [id number] [facility] 2024-03-10 00:00:00 2024-03-10 23:21:57 Refill ArunMalaika [facility] 1.2.840.114 350.1.13.10 4.2.7.2.686 [id number] 044 [id number] [facility] 2024-03-07 00:00:00 2024-03-08 10:28:33 Telephone ArunBhavinFranklin , [facility] 1.2.840.114 350.1.13.10 4.2.7.2.686 [id number] 044 [id number] [facility] 2024-03-06 14:15:00 2024-03-06 14:15:00 Outpatient R ZEFERINO EVA [facility] [id number] [facility] 2024-03-05 00:00:00 2024-03-06 09:29:39 Telephone ObGadiel [facility] PROFESSIO NAL BUILDING 1.2.840.114 350.1.13.10 4.2.7.2.686 [id number] 044 [id number] [facility] 2024-03-04 00:00:00 2024-03-05 15:00:39 Patient Secure M[facility] 1.2.840.114 350.1.13.10 4.2.7.2.686 [id number] [id number] [facility] 2024-03-04 00:00:00 2024-03-04 14:51:37 Telephone [facility] 1.2.840.114 350.1.13.10 4.2.7.2.686 [id number] 044 [id number] [facility] 2024-02-28 00:00:00 2024-03-03 16:59:48 Telephone [facility] 1.2.840.114 350.1.13.10 4.2.7.2.686 [id number] 044 [id number] [facility] 2024-02-28 00:00:00 2024-02-28 13:24:25 Telephone [facility] 1.2.840.114 350.1.13.10 4.2.7.2.686 [id number] 044 [id number] [facility] 2024-02-27 00:00:00 2024-02-27 15:55:52 [facility] 1.2.840.114 350.1.13.10 4.2.7.2.686 [id number] 044 [id number] [facility] 2024-02-27 10:40:00 2024-02-27 11:10:59 Outpatient R OB-JESS REID OBSuzanne-FRANKLIN [facility] [id number] [facility] 2024-02-27 10:40:00 2024-02-27 11:10:59 [facility] 1.2.840.114 350.1.13.10 4.2.7.2.686 [id number] 044 [id number] [facility] 2024-02-22 00:00:00 2024-02-22 13:47:53 [facility] 1.2840.114 350.1.13.10 4.2.7.2.686 [id number] 044 [id number] [facility] 2024-02-21 23:55:00 2024-02-22 02:59:00 Emergency X SHORTY [facility]AMBRANO [facility] [id number] [facility] 2024-02-21 23:55:00 2024-02-22 02:59:00 Emergency Shorty Zambrano [facility] 1.2.840.114 350.1.13.10 4.2.7.2.686 [id number] 084 [id number] [facility] 2024-02-21 00:00:00 2024-02-21 08:19:30 [facility] 1.2.840.114 350.1.13.10 4.2.7.2.686 [id number] 044 [id number] [facility] 2024-02-11 00:00:00 2024-02-13 09:13:13 Telephone Eva Bryan [facility] 1.2.840.114 350.1.13.10 4.2.7.2.686 [id number] 188 [id number] [facility] 2024-02-11 00:00:00 2024-02-11 13:15:26 Patient Secure Msg Eva Bryan [facility] 1.2.840.114 350.1.13.10 4.2.7.2.686 [id number] [facility] 2024-02-11 00:00:00 2024-02-11 12:46:06 Refill Jess Munson [facility] 1.2.840.114 350.1.13.10 4.2.7.2.686 [id number] 044 [id number] [facility] 2024-02-08 00:00:00 2024-02-08 14:40:57 Telephone Eva Bryan [facility] 1.2.840.114 350.1.13.10 4.2.7.2.686 [id number] 188 [id number] [facility] 2024-02-07 00:00:00 2024-02-08 14:24:51 Patient Secure Eva Johnson [facility] 1.2.840.114 350.1.13.10 4.2.7.2.686 [id number] 188 [id number] [facility] 2024-01-30 00:00:00 2024-01-31 08:09:51 Telephone Eva Bryan [facility] 1.2.840.114 350.1.13.10 4.2.7.2.686 [id number] [facility] 2024-01-29 08:46:00 2024-01-29 14:10:00 Outpatient R EVA BRYAN [facility] [id number] [facility] 2024-01-29 08:46:00 2024-01-29 14:10:00 Hospital Encounter Eva Bryan [facility] 1.2.840.114 350.1.13.10 4.2.7.2.686 [id number] 071 [id number] [facility] 2024-01-29 10:00:00 2024-01-29 12:35:00 Surgery Eva Bryan [facility] 1.2.840.114 350.1.13.10 4.2.7.2.686 [id number] 020 [id number] [facility] 2024-01-25 00:00:00 2024-01-28 13:50:46 Refill Obsuzanne-Franklin [facility] PROFESSIO NAL BUILDING 1.2840.114 350.1.13.10 4.2.7.2.686 [id number] 044 [id number] [facility] 2024-01-12 03:54:00 2024-01-12 05:48:00 Emergency X CARO BAUER WAKILI [facility] ERT [id number] [facility] 2024-01-12 03:54:00 2024-01-12 05:48:00 Emergency Caro Bauer [facility] 1.2.840.114 350.1.13.10 4.2.7.2.686 [id number] 084 [id number] [facility] 2024-01-11 00:00:00 2024-01-11 12:50:05 Patient Secure Msg Obi-Franklin [facility] PROFESSIO NAL BUILDING 1.2.840.114 350.1.13.10 4.2.7.2.686 [id number] 044 [id number] [facility] 2024-01-10 00:00:00 2024-01-11 05:46:35 Patient Secure Msg [facility] 1.2.840.114 350.1.13.10 4.2.7.2.686 [id number] 044 [id number] [facility] 2024-01-07 11:15:00 2024-01-07 12:06:32 Outpatient R EVA BRYAN [facility] [id number] [facility] 2024-01-07 11:15:00 2024-01-07 12:06:32 Office Visit Eva Bryan [facility] 1.2.840.114 350.1.13.10 4.2.7.2.686 [id number] [facility] 2023-11-30 00:00:00 2024-01-05 18:24:03 Patient Secure Msg Rodrigoi-Franklin [facility] BUILDING 1.2.840.114 350.1.13.10 4.2.7.2.686 [id number] 044 [id number] [facility] 2024-01-03 11:00:00 2024-01-03 11:41:02 Outpatient R OBI-JESS REID OBI-FRANKLIN [facility] [id number] [facility] 2024-01-03 11:00:00 2024-01-03 11:41:02 Office Visit ObiMalaika [facility] 1.2.840.114 350.1.13.10 4.2.7.2.686 [id number] 044 [id number] [facility] 2024-01-02 00:00:00 2024-01-02 08:01:22 Telephone Obi-Franklin [facility] BUILDING 1.2.840.114 350.1.13.10 4.2.7.2.686 [id number] 044 [id number] [facility] 2023-12-25 00:00:00 2023-12-27 05:31:52 Refill Jeimy [facility] 1.2.840.114 350.1.13.10 4.2.7.2.686 [id number] 044 [id number] [facility] 2023-12-25 00:00:00 2023-12-25 12:23:25 Refill Yann Nayak [facility] 1.2.840.114 350.1.13.10 4.2.7.2.686 [id number] [id number] [facility] 2023-12-24 00:00:00 2023-12-24 16:00:22 Patient Secure Msg Yisel Hart [facility] ([facility]) 1.2.840.114 350.1.13.10 4.2.7.2.686 [id number] 071 [id number] [facility] 2023-12-24 09:50:00 2023-12-24 11:47:00 Outpatient R YISEL HART [facility] [id number] [facility] 2023-12-24 09:50:00 2023-12-24 11:47:00 Hospital Encounter Yisel Hart [facility] 1.2.840.114 350.1.13.10 4.2.7.2.686 [id number] [facility] 2023-12-24 10:45:00 2023-12-24 11:15:00 Surgery Yisel Hart [facility] 1.2.840.114 350.1.13.10 4.2.7.2.686 [id number] [facility] 2023-12-18 14:30:00 2023-12-18 14:30:00 Outpatient R KONRAD ORDO[facility]Z [facility] [id number] [facility] 2023-12-18 13:00:00 2023-12-18 13:00:00 Outpatient R OBI-FRANKLIN , JESS [facility] [id number] [facility] 2023-12-17 00:00:00 2023-12-18 11:14:39 Tele[facility] 1..840.114 350.1.13.10 4.2.7.2.686 [id number] 044 [id number] [facility] 2023-12-12 08:40:00 2023-12-12 08:40:00 Outpatient R OBI-FRANKLIN ShoaibJESS OBI-FRANKLIN , [facility] [id number] [facility] 2023-12-07 00:00:00 2023-12-10 08:32:14 Refill [facility]iro [facility] 1.2.840.114 350.1.13.10 4.2.7.2.686 [id number] 044 [id number] [facility] 2023-11-30 00:00:00 2023-12-04 09:32:31 Patient Secure MsTianna Meeks [facility] ([facility]) 1.2840.114 350.1.13.10 4.2.7.2.686 [id number] 071 [id number] [facility] 2023-11-30 15:45:00 2023-11-30 15:45:00 Outpatient R ISAAC SHAY [facility] [id number] [facility] 2023-11-27 14:00:00 2023-11-27 14:37:01 Outpatient R VANESSA LEYVA VIVIAN [facility] [id number] [facility] 2023-11-27 14:00:00 2023-11-27 14:37:01 Office Visit Vanessa Leyva [facility] 1.840.114 350.1.13.10 4.2.7.2.686 [id number] [facility] 2023-11-26 15:00:00 2023-11-26 15:30:00 Office Visit Jose De Jesus Medina [facility] 1..840.114 350.1.13.10 4.2.7.2.686 [id number] [facility] 2023-11-26 15:00:00 2023-11-26 15:00:00 Outpatient R JOSE DE JESUS MEDINA VIEN [facility] [id number] [facility] 2023-11-22 13:00:00 2023-11-22 13:30:00 Office Visit Tianna Mei [facility] ([facility]) 1.840.114 350.1.13.10 4.2.7.2.686 [id number] [id number] [facility] 2023-11-22 13:00:00 2023-11-22 13:00:00 Outpatient R TIANNA MEI ASHLEY [facility] [id number] [facility] 2023-11-20 10:00:00 2023-11-20 10:00:00 Outpatient R [facility] [id number] [facility] 2023-11-19 10:30:00 2023-11-19 10:30:00 Shot Polisher And Inspector Visit 2, Adc Lab Arun-Jses Reid 2, Adc Lab [facility] 1.2.840.114 350.1.13.10 4.2.7.2.686 [id number] [facility] 2023-11-19 09:40:00 2023-11-19 10:03:53 Outpatient R ARUN-JESS REID OBI-FRANKLIN [facility] [id number] [facility] 2023-11-19 09:40:00 2023-11-19 10:03:53 Office Visit RodrigoMalaika [facility] PROFESSIO NAL BUILDING 1.2.840.114 350.1.13.10 4.2.7.2.686 [id number] 044 [id number] [facility] 2023-11-15 00:00:00 2023-11-18 18:57:29 Refill Jeimy [facility] PROFESSIO NAL BUILDING 1.2.840.114 350.1.13.10 4.2.7.2.686 [id number] 044 [id number] [facility] 2023-11-16 00:00:00 2023-11-18 18:53:00 [facility] PROF[facility] NAL BUILD[facility] 1.2.840.114 350.1.13.10 4.2.7.2.686 [id number] 044 [id number] [facility] 2023-11-18 05:34:00 2023-11-18 13:08:00 Emergency KELLY CUEVAS [facility] [id number] [facility] 2023-11-18 05:34:00 2023-11-18 13:08:00 Emergency Caro Bauer Robert Lee [facility] 1.2.840.114 350.1.13.10 4.2.7.2.686 [id number] [id number] [facility] 2023-11-08 10:16:00 2023-11-08 16:16:00 Emergency X MAAME, TIFF ISABEL, TIFF [facility] [id number] [facility] 2023-11-08 10:16:00 2023-11-08 16:16:00 Emergency Tiff Isabel [facility] 1.2.840.114 350.1.13.10 4.2.7.2.686 [id number] 084 [id number] [facility] 2023-10-16 00:00:00 2023-10-19 05:44:04 Refill Obi-Franklin , [facility] PROFESSIO NAL BUILDING 1.2.840.114 350.1.13.10 4.2.7.2.686 [id number] 044 [id number] [facility] 2023-10-15 00:00:00 2023-10-16 10:48:03 Refill [facility]bi[facility] , [facility] 1.2.840.114 350.1.13.10 4.2.7.2.686 [id number] 044 [id number] [facility] 2023 09:40:00 2023 09:40:00 Outpatient R OBI-FRANKLIN , JESS OBI-FRANKLIN , [facility] [id number] [facility] 2023-10-01 00:00:00 2023-10-03 15:28:49 Refill Obi[facility]lin , [facility] 1.2.840.114 350.1.13.10 4.2.7.2.686 [id number] 044 [id number] [facility] 2023-09-12 00:00:00 2023-09-13 13:09:32 Refill Obi[facility]lin , [facility] 1.2.840.114 350.1.13.10 4.2.7.2.686 [id number] 044 [id number] [facility] 2023-09-05 10:40:00 2023-09-05 10:40:00 Outpatient R OBI-FRANKLIN , JESS OBI-FRANKLIN , JESS [facility] [id number] [facility] 2023-08-13 14:40:00 2023-08-13 14:40:00 Outpatient R OBI-FRANKLIN , JESS [facility]LIN , [facility] [id number] [facility] 2023-08-06 14:30:00 2023-08-06 15:25:53 Shot Polisher And Inspector Visit 2, Adc Lab Obi-Franklin , [facility] BUILDING 1.2.840.114 350.1.13.10 4.2.7.2.686 [id number] [facility] 2023-08-06 14:30:00 2023-08-06 14:30:00 Outpatient R OBI-FRANKLIN JESS OBI-FRANKLIN , [facility] [id number] [facility] 2023-08-06 13:40:00 2023-08-06 14:29:31 Office Visit Obi-Jess Reid [facility] NAL BUILDING 1.2.840.114 350.1.13.10 4.2.7.2.686 [id number] 044 [id number] [facility] 2023-08-06 08:40:00 2023-08-06 08:40:00 Outpatient R OBI-FRANKLIN , JESS OBI-FRANKLIN , [facility] [id number] [facility] 2023-07-31 00:00:00 2023-08-01 12:29:54 Telephone Konrad Ordoñez [facility] 1.2.840.114 350.1.13.10 4.2.7.2.686 [id number] 044 [id number] [facility] 2023-07-31 00:00:00 2023-07-31 18:10:27 Refill Obi-Franklin [facility] BUILDING 1.2.840.114 350.1.13.10 4.2.7.2.686 [id number] [id number] [facility] 2023-07-30 00:00:00 2023-07-31 09:10:12 Patient Secure Msg Obi-Franklin [facility] BUILDING 1.2.840.114 350.1.13.10 4.2.7.2.686 [id number] 044 [id number] [facility] 2023-07-25 00:00:00 2023-07-25 09:15:22 Refill Obi-Franklin [facility] 1.2.840.114 350.1.13.10 4.2.7.2.686 [id number] 044 [id number] [facility] 2023-05-29 00:00:00 2023-06-30 18:07:42 Patient Secure Msg Obi-Franklin [facility] 1.2.840.114 350.1.13.10 4.2.7.2.686 [id number] [id number] [facility] 2023-06-21 11:31:00 2023-06-21 12:29:00 Emergency X BONITA TRIVEDI [facility] ERT [id number] [facility] 2023-06-21 11:31:00 2023-06-21 12:29:00 Emergency Bonita Trivedi [facility] 1.2.840.114 350.1.13.10 4.2.7.2.686 [id number] [facility] 2023-06-18 08:40:00 2023-06-18 08:40:00 Outpatient R [facility] , JESS [facility] , JESS [facility] [id number] [facility] 2023-06-12 00:00:00 2023-06-12 00:00:00 Patient Secure Msg [facility] 1.2.840.114 350.1.13.10 4.2.7.2.686 [id number] [facility] 2023-06-06 13:00:00 2023-06-06 13:00:00 Outpatient R [facility] , [id number] 2023-05-29 00:00:00 2023-05-29 00:00:00 Refill [facility] Jess [facility] 1.2.840.114 350.1.13.10 4.2.7.2.686 [id number] [id number] [facility] 2023-04-25 15:00:00 2023-04-25 15:00:00 Outpatient R [facility] , [facility] [id number] [facility] 2023-04-23 00:00:00 2023-04-23 00:00:00 [facility] 1.2.840.114 350.1.13.10 4.2.7.2.686 [id number] [id number] [facility] 2023-04-11 00:00:00 2023-04-11 00:00:00 [facility] 1.2.840.114 350.1.13.10 4.2.7.2.686 [id number] [id number] [facility] 2023-04-05 00:00:00 2023-04-05 00:00:00 Telephone Jeimy Kell [facility] 1.2.840.114 350.1.13.10 4.2.7.2.686 [id number] 044 [id number] [facility] 2023-04-03 00:00:00 2023-04-03 00:00:00 Telephone Carlos Ibrahim [facility] BUILDING 1.2.840.114 350.1.13.10 4.2.7.2.686 [id number] 044 [id number] [facility] 2023-04-03 00:00:00 2023-04-03 00:00:00 Patient Secure Msg Jeimy [facility] BUILDING 1.2.840.114 350.1.13.10 4.2.7.2.686 [id number] 044 [id number] [facility] 2023-04-01 00:00:00 2023-04-01 00:00:00 Refill Jeimy [facility] BUILDING 1.2.840.114 350.1.13.10 4.2.7.2.686 [id number] 044 [id number] [facility] 2023-03-02 00:00:00 2023-03-02 00:00:00 Refill Jeimy [facility] BUILDING 1.2.840.114 350.1.13.10 4.2.7.2.686 [id number] 044 [id number] [facility] 2023-02-19 00:00:00 2023-02-19 00:00:00 Refill Obi-Franklin [facility] BUILDING 1.2.840.114 350.1.13.10 4.2.7.2.686 [id number] 044 [id number] [facility] 2023-01-26 00:00:00 2023-01-26 00:00:00 Patient Secure Msg Doctor Unassigned, [place] [facility] 1.2840.114 350.1.13.10 4.2.7.2.686 [id number] 044 [id number] [facility] 2023-01-24 15:00:00 2023-01-24 15:25:03 Outpatient R OBI-FRANKLIN , [facility] [id number] [facility] 2023-01-24 15:00:00 2023-01-24 15:25:03 Office Visit Obi[facility] 1.2.840.114 350.1.13.10 4.2.7.2.686 [id number] 044 [id number] [facility] 2023-01-16 00:00:00 2023-01-16 00:00:00 Refill Obi-Franklin [facility] BUILDING 1.2.840.114 350.1.13.10 4.2.7.2.686 [id number] 044 [id number] [facility] 2023-01-15 00:00:00 2023-01-15 00:00:00 Orders Only Doctor Unassigned, [place] [facility] 1.2840.114 350.1.13.10 4.2.7.2.686 [id number] [id number] [facility] 2023-01-15 00:00:00 2023-01-15 00:00:00 Patient Secure Msg Doctor Unassigned, [place] [facility] 1.2.840.114 350.1.13.10 4.2.7.2.686 [id number] [facility] 2023-01-08 00:00:00 2023-01-08 00:00:00 [facility] 1.2.840.114 350.1.13.10 4.2.7.2.686 [id number] 044 [id number] [facility] 2023-01-06 00:00:00 2023-01-06 00:00:00 Orders Only Doctor Unassigned, [place] [facility] 1.2.840.114 350.1.13.10 4.2.7.2.686 [id number] [id number] [facility] 2023-01-05 00:00:00 2023-01-05 00:00:00 [facility] 1.2840.114 350.1.13.10 4.2.7.2.686 [id number] 044 [id number] [facility] 2023-01-03 00:00:00 2023-01-03 00:00:00 [facility] 1.2.840.114 350.1.13.10 4.2.7.2.686 [id number] 044 [id number] [facility] 2023-01-01 00:00:00 2023-01-01 00:00:00 Patient Secure Msg Doctor Unassigned, [place] [facility] 1.2.840.114 350.1.13.10 4.2.7.2.686 [id number] 044 [id number] [facility] 2022-12-28 00:00:00 2022-12-28 00:00:00 Patient Secure Msg [facility] 1.2.840.114 350.1.13.10 4.2.7.2.686 [id number] 044 [id number] [facility] 2022-12-26 00:00:00 2022-12-26 00:00:[address] [facility] BUILDING 1.2.840.114 350.1.13.10 4.2.7.2.686 [id number] 044 [id number] [facility] 2022-12-25 14:45:00 2022-12-25 15:00:00 Shot Polisher And Inspector Visit 2, Adc Lab Jeimy [facility] BUILDING 1.2.840.114 350.1.13.10 4.2.7.2.686 [id number] [facility] 2022-12-25 14:00:00 2022-12-25 14:14:40 Outpatient R OBSuzanne-JESS REID OBSuzanne-FRANKLIN [facility] [id number] [facility] 2022-12-25 14:00:00 2022-12-25 14:14:40 Office Visit Jeimy [facility] BUILDING 1.2.840.114 350.1.13.10 4.2.7.2.686 [id number] 044 [id number] [facility] 2022-12-19 10:00:00 2022-12-19 10:00:00 Outpatient R OBI-JESS REID OBI-FRANKLIN , [facility] [id number] [facility] 2022-07-19 15:30:00 2022-07-19 15:30:00 Outpatient R KAMILA MILAN [facility] [id number] [facility] 2022-04-14 10:00:00 2022-04-14 10:00:00 Outpatient R [facility] [id number] [facility] 2022-01-20 13:00:00 2022-01-20 14:43:14 Outpatient R JACINTA VOSS [facility] [id number] [facility] 2022-01-20 13:00:00 2022-01-20 14:43:14 Office Visit Provider, Meche Harvey Brenda A [facility] SUPERINTENDENT NONSELLING [facility] CHILD [facility] 1.2.840.114 350.1.13.10 4.2.7.2.686 [id number] 107 [id number] [facility] 2022-01-16 10:45:00 2022-01-16 10:45:00 Outpatient R MECHE ROBERSON [facility] [id number] [facility] 2022-01-05 00:00:00 2022-01-05 00:00:00 Encounter 1.2.840.1 66290.1.1 3.104.2.7 .2.378669 1.2.840.114 350.1.13.10 4.2.7.2.696 [id number] [facility] 2022-01-03 00:00:00 2022-01-03 00:00:00 Orders Only Doctor Unassigned, [place] [facility] 1.2.840.114 350.1.13.10 4.2.7.2.686 [id number] [id number] [facility] 2021-12-29 00:00:00 2021-12-29 00:00:00 Patient Secure Rodrick Townsend [facility] SUPERINTENDENT NONSELLING [facility] 1.2.840.114 350.1.13.10 4.2.7.2.686 [id number] 107 [id number] [facility] 2021-12-22 07:45:00 2021-12-22 08:42:11 Outpatient R JACINTA VOSS [facility] [id number] [facility] 2021-12-22 07:45:00 2021-12-22 08:42:11 Routine Visit Provider, GiovannaRmchp Jacinta Parra [facility] SUPERINTENDENT NONSELLING [facility] 1.2840.114 350.1.13.10 4.2.7.2.686 [id number] 107 [id number] [facility] 2021-12-03 00:00:00 2021-12-03 00:00:00 Patient Secure Msg Doctor Unassigned, [place] [facility] 1.2840.114 350.1.13.10 4.2.7.2.686 [id number] 019 [id number] [facility] 2021-11-30 00:00:00 2021-11-30 00:00:00 Patient Secure g HeRodrick [facility] SUPERINTENDENT NONSELLING [facility] & CHILD [facility] 1.0.114 350.1.13.10 4.2.7.2.686 [id number] 107 [id number] [facility] 2021-11-26 03:26:00 2021-11-29 10:05:00 Inpatient P GORDON VANESSA [facility] [id number] [facility] 2021-11-26 03:26:00 2021-11-29 10:05:00 Hospital Encounter Vanessa Leyva Camryn [facility] 1.2840.114 350.1.13.10 4.2.7.2.686 [id number] [facility] 2021-11-26 15:34:00 2021-11-27 08:48:00 Anesthesia Event Wilver Owens [facility] 1.2840.114 350.1.13.10 4.2.7.2.686 [id number] 083 [id number] [facility] 2021-11-26 10:17:37 2021-11-26 10:17:37 Anesthesia Event Wilver Owens [facility] 1.2.840.114 350.1.13.10 4.2.7.2.686 [id number] 083 [id number] [facility] 2021-11-23 09:45:00 2021-11-23 10:25:58 Outpatient LOVE SANTA EMILY [facility] [id number] [facility] 2021-11-23 09:45:00 2021-11-23 10:25:58 Routine Visit Provider, Rodrick Swanson Emily J. [facility] SUPERINTENDENT NONSELLING [facility] CHILD [facility] 1..840.114 350.1.13.10 4.2.7.2.686 [id number] 107 [id number] [facility] 2021-11-11 09:45:00 2021-11-11 10:12:23 Routine Visit Rodrick Pete [facility] SUPERINTENDENT NONSELLING [facility] CH[facility] 1.2.840.114 350.1.13.10 4.2.7.2.686 [id number] 107 [id number] [facility] 2021-11-11 09:45:00 2021-11-11 10:12:23 Outpatient RODRICK DENNIS [facility] [id number] [facility] 2021-11-11 00:00:00 2021-11-11 00:00:00 Patient Secure Msg Rodrick Pete [facility] SUPERINTENDENT NONSELLING [facility] & CHILD [facility] 1.2.840.114 350.1.13.10 4.2.7.2.686 [id number] 107 [id number] [facility] 2021-11-09 00:00:00 2021-11-09 00:00:00 Telephone Rodrick Pete [facility] SUPERINTENDENT NONSELLING [facility] & CHILD [facility] 1.114 350.1.13.10 4.2.7.2.686 [id number] 107 [id number] [facility] 2021-11-07 00:00:00 2021-11-07 00:00:00 Refbrandy Rodrick Pete [facility] SUPERINTENDENT NONSELLING [facility] & CHILD [facility] 1..114 350.1.13.10 4.2.7.2.686 [id number] 107 [id number] [facility] 2021-10-27 17:35:00 2021-10-27 19:05:00 Outpatient X SHAZIABRENDA [facility] [id number] [facility] 2021-10-27 17:35:00 2021-10-27 19:05:00 Emergency Brenda Velásquez K Paige [facility] 1.114 350.1.13.10 4.2.7.2.686 [id number] [facility] 2021-10-27 12:45:00 2021-10-27 13:34:39 Outpatient RODRICK DENNIS [facility] [id number] [facility] 2021-10-27 12:45:00 2021-10-27 13:34:39 Routine Visit Rodrick Pete [facility] SUPERINTENDENT NONSELLING [facility] & CHILD [facility] 1..114 350.1.13.10 4.2.7.2.686 [id number] 107 [id number] [facility] 2021-10-27 12:45:00 2021-10-27 12:45:00 Outpatient RODRICK DENNIS [facility] [id number] [facility] 2021-10-27 00:00:00 2021-10-27 00:00:00 Orders Only Doctor Unassigned, [place] [facility] 1.114 350.1.13.10 4.2.7.2.686 [id number] [id number] [facility] 2021-10-26 00:00:00 2021-10-26 00:00:00 Abstract Rodrick Pete [facility] SUPERINTENDENT NONSELLING [facility] & CHILD [facility] 1.2.840.114 350.1.13.10 4.2.7.2.686 [id number] 107 [id number] [facility] 2021-10-21 09:45:00 2021-10-21 10:30:00 Shot Polisher And Inspector Visit Ultrasound, Vinh Stone [facility] SUPERINTENDENT NONSELLING [facility] CHILD [facility] 1..840.114 350.1.13.10 4.2.7.2.686 [id number] [facility] 2021-10-21 09:45:00 2021-10-21 09:45:00 Out[facility] [id number] [facility] 2021-10-18 00:00:00 2021-10-18 00:00:00 Patient Secure Msg Doctor Unassigned, [place] [facility] SUPERINTENDENT NONSELLING [facility] & CHILD [facility] 1.2.840.114 350.1.13.10 4.2.7.2.686 [id number] 107 [id number] [facility] 2021-10-18 00:00:00 2021-10-18 00:00:00 Telephone Rodrick Pete [facility] SUPERINTENDENT NONSELLING [facility] & CHILD [facility] 1..840.114 350.1.13.10 4.2.7.2.686 [id number] 107 [id number] [facility] 2021-10-14 08:00:00 2021-10-14 08:34:31 Outpatient R RODRICK PETE [facility] [id number] [facility] 2021-10-14 08:00:00 2021-10-14 08:34:31 Routine Visit Rodrick Pete [facility] SUPERINTENDENT NONSELLING [facility] & CHILD [facility] 1.2.840.114 350.1.13.10 4.2.7.2.686 [id number] 107 [id number] [facility] 2021-09-29 10:45:00 2021-09-29 11:39:29 Outpatient R RODRICK PETE [facility] [id number] [facility] 2021-09-29 10:45:00 2021-09-29 11:39:29 Routine Visit Rodrick Pete [facility] SUPERINTENDENT NONSELLING [facility] & CHILD [facility] 1.2840.114 350.1.13.10 4.2.7.2.686 [id number] 107 [id number] [facility] 2021-09-29 10:45:00 2021-09-29 10:45:00 Outpatient R RODRICK PETE [facility] [id number] [facility] 2021-09-16 00:00:00 2021-09-16 00:00:00 Patient Secure Msg Doctor Unassigned, [place] [facility] 1.2840.114 350.1.13.10 4.2.7.2.686 [id number] [facility] 2021-09-16 00:00:00 2021-09-16 00:00:00 Telephone Rodrick Pete [facility] SUPERINTENDENT NONSELLING [facility] & CHILD [facility] 1.2.840.114 350.1.13.10 4.2.7.2.686 [id number] 107 [id number] [facility] 2021-09-16 00:00:00 2021-09-16 00:00:00 Telephone Rodrick Pete [facility] SUPERINTENDENT NONSELLING [facility] & CHILD [facility] 1.2.840.114 350.1.13.10 4.2.7.2.686 [id number] 107 [id number] [facility] 2021-09-15 10:45:00 2021-09-15 11:53:13 Outpatient R RODRICK PETE [facility] [id number] [facility] 2021-09-15 10:45:00 2021-09-15 11:53:13 Routine Visit Rodrick Pete [facility] SUPERINTENDENT NONSELLING [facility] & CHILD [facility] 1..840.114 350.1.13.10 4.2.7.2.686 [id number] 107 [id number] [facility] 2021-09-13 00:00:00 2021-09-13 00:00:00 Refill Rodrick Pete [facility] SUPERINTENDENT NONSELLING [facility] & CHILD [facility] 1..840.114 350.1.13.10 4.2.7.2.686 [id number] 107 [id number] [facility] 2021-08-23 08:45:00 2021-08-23 22:46:00 Outpatient X BRENDA VELÁSQUEZ [facility] [id number] [facility] 2021-08-23 08:45:00 2021-08-23 22:46:00 Emergency Martinez, Brenda Avery [facility] 1..840.114 350.1.13.10 4.2.7.2.686 [id number] [facility] 2021-08-18 10:30:00 2021-08-18 10:44:10 Outpatient R RODRICK PETE [facility] [id number] [facility] 2021-08-18 10:30:00 2021-08-18 10:44:10 Routine Visit Rodrick Pete [facility] SUPERINTENDENT NONSELLING [facility] & CHILD [facility] 1..840.114 350.1.13.10 4.2.7.2.686 [id number] 107 [id number] [facility] 2021-08-11 00:00:00 2021-08-11 00:00:00 Patient Secure Msg Rodrick Pete [facility] SUPERINTENDENT NONSELLING [facility] CHILD [facility] 1.2.840.114 350.1.13.10 4.2.7.2.686 [id number] 107 [id number] [facility] 2021-08-11 00:00:00 2021-08-11 00:00:00 Rodrick Buckner [facility] SUPERINTENDENT NONSELLING [facility] 1.2.840.114 350.1.13.10 4.2.7.2.686 [id number] 107 [id number] [facility] 2021-08-11 00:00:00 2021-08-11 00:00:00 Rodrick Buckner [facility] SUPERINTENDENT NONSELLING [facility] 1.2.840.114 350.1.13.10 4.2.7.2.686 [id number] 107 [id number] [facility] 2021-08-11 00:00:00 2021-08-11 00:00:00 Rodrick Buckner [facility] SUPERINTENDENT NONSELLING [facility] 1.2.840.114 350.1.13.10 4.2.7.2.686 [id number] 107 [id number] [facility] 2021-08-02 00:00:00 2021-08-02 00:00:00 Gonzales Rodrick Pete [facility] SUPERINTENDENT NONSELLING [facility] CHILD [facility] 1.2.840.114 350.1.13.10 4.2.7.2.686 [id number] 107 [id number] [facility] 2021-08-01 00:00:00 2021-08-01 00:00:00 Patient Secure Msg Doctor Unassigned, [place] [facility] 1.2.840.114 350.1.13.10 4.2.7.2.686 [id number] 107 [id number] [facility] 2021-07-29 09:30:00 2021-07-29 10:45:00 Shot Polisher And Inspector Visit Ultrasound, GiovannaMfm Rodrick Pete Antonio F [facility] SUPERINTENDENT NONSELLING [facility] & CHILD [facility] 1.840.114 350.1.13.10 4.2.7.2.686 [id number] [facility] 2021-07-29 09:30:00 2021-07-29 09:30:00 Outpatient P [facility] [id number] [facility] 2021-07-29 09:30:00 2021-07-29 09:30:00 Outpatient P MADDIE ROMEO [facility] [id number] [facility] 2021-07-29 08:00:00 2021-07-29 08:36:27 Shot Polisher And Inspector Visit Lab, Ang-Rmchp Rodrick Pete [facility] SUPERINTENDENT NONSELLING [facility] & CHILD [facility] 1.840.114 350.1.13.10 4.2.7.2.686 [id number] 107 [id number] [facility] 2021-07-23 00:00:00 2021-07-23 00:00:00 Patient Secure Msg Doctor Unassigned, [place] [facility] 1.840.114 350.1.13.10 4.2.7.2.686 [id number] [facility] 2021-07-21 09:00:00 2021-07-21 10:12:55 Outpatient R RODRICK PETE [facility] [id number] [facility] 2021-07-21 09:00:00 2021-07-21 10:12:55 Routine Visit Rodrick Pete [facility] SUPERINTENDENT NONSELLING [facility] & CHILD [facility] 1..840.114 350.1.13.10 4.2.7.2.686 [id number] 107 [id number] [facility] 2021-07-21 09:00:00 2021-07-21 10:12:55 Outpatient RODRICK DENNIS [facility] [id number] [facility] 2021-07-21 09:00:00 2021-07-21 09:00:00 Outpatient RODRICK DENNIS [facility] [id number] [facility] 2021-07-21 09:00:00 2021-07-21 09:00:00 Outpatient RODRICK DENNIS [facility] [id number] [facility] 2021-07-17 02:36:00 2021-07-17 06:54:00 Emergency X CARO BAUER [facility] [id number] [facility] 2021-07-17 02:36:00 2021-07-17 06:54:00 Emergency Caro Bauer [facility] 1..840.114 350.1.13.10 4.2.7.2.686 [id number] [id number] [facility] 2021-07-12 00:00:00 2021-07-12 00:00:00 Telephone Lolly Petejorge albertolos Mosquera [facility] SUPERINTENDENT NONSELLING [facility] & CHILD [facility] 1.2.840.114 350.1.13.10 4.2.7.2.686 [id number] 107 [id number] [facility] 2021-07-06 00:00:00 2021-07-06 00:00:00 Telephone Marie Petelos Demetri [facility] SUPERINTENDENT NONSELLING [facility] CHILD [facility] 1.2840.114 350.1.13.10 4.2.7.2.686 [id number] 107 [id number] [facility] 2021-06-28 01:26:00 2021-06-29 10:10:00 Outpatient X SHAZIA BRENDA [facility] [id number] [facility] 2021-06-28 01:26:00 2021-06-29 10:10:00 Emergency Alayna Bear Megan [facility] 1.2.840.114 350.1.13.10 4.2.7.2.686 [id number] [facility] 2021-06-27 20:49:00 2021-06-27 20:59:00 Emergency X [facility] [id number] [facility] 2021-06-27 20:49:00 2021-06-27 20:59:00 Emergency [facility] 1.2.840.114 350.1.13.10 4.2.7.2.686 [id number] [facility] 2021-06-24 00:00:00 2021-06-24 00:00:00 Patient Secure Msg Rodrick Pete [facility] SUPERINTENDENT NONSELLING [facility] CHILD [facility] 1.2.840.114 350.1.13.10 4.2.7.2.686 [id number] 107 [id number] [facility] 2021-06-24 00:00:00 2021-06-24 00:00:00 Telephone Rodrick Pete [facility] SUPERINTENDENT NONSELLING [facility] & CHILD [facility] 1.2.840.114 350.1.13.10 4.2.7.2.686 [id number] 107 [id number] [facility] 2021-06-23 14:00:00 2021-06-23 15:33:45 Outpatient R RODRICK PETE [facility] [id number] [facility] 2021-06-23 14:00:00 2021-06-23 15:33:45 Initial Visit Rodrick Pete [facility] SUPERINTENDENT NONSELLING [facility] & CHILD [facility] 1.2.840.114 350.1.13.10 4.2.7.2.686 [id number] 107 [id number] [facility] 2021-06-23 14:00:00 2021-06-23 15:33:45 Outpatient RODRICK DENNIS [facility] [id number] [facility] 2021-06-23 14:00:00 2021-06-23 15:33:45 Outpatient RODRICK DENNIS [facility] [id number] [facility] 2021-06-23 00:00:00 2021-06-23 00:00:00 Orders Only Doctor Unassigned, [place] [facility] 1.2.840.114 350.1.13.10 4.2.7.2.686 [id number] [facility] 2021-06-22 08:04:00 2021-06-22 13:00:00 Emergency X ANGUS DWYER [facility] [id number] [facility] 2021-06-22 08:04:00 2021-06-22 13:00:00 Emergency Angus Dwyer [facility] 1.2.840.114 350.1.13.10 4.2.7.2.686 [id number] [facility] 2021-06-21 22:18:00 2021-06-21 23:26:00 Emergency Caro Bauer S [facility] 1.2.840.114 350.1.13.10 4.2.7.2.686 [id number] [facility] 2021-06-21 22:18:00 2021-06-21 23:26:00 Emergency X TUAN [facility]AU[facility]ULLEN [facility] [id number] [facility] 2021-06-21 22:18:00 2021-06-21 23:26:00 Emergency X TUAN BAUERCULLEN [facility] ERT [id number] [facility] 2021-06-11 12:44:00 2021-06-14 18:06:00 Inpatient X JOSE DE JESUS MEDINA [facility] [id number] [facility] 2021-06-11 12:44:00 2021-06-14 18:06:00 Hospital Encounter Abdullahi Gomez Christopher Adum, Jose De Jesus Vick [facility] 1.2.840.114 350.1.13.10 4.2.7.2.686 [id number] [facility] 2021-05-30 23:49:00 2021-06-03 14:41:00 Hospital Encounter Abdullahi Gomez Shannon [facility] 1.2840.114 350.1.13.10 4.2.7.2.686 [id number] [facility] 2021-05-30 23:49:00 2021-06-03 14:41:00 Inpatient X EDITH TERRY SHANNON [facility] [id number] [facility] Results Test Description Test Time Test [...] abdomen and pelvisdemonstrate no osseous destructive lesion[facility] 06:46:27* Test Item Value Reference Range Interpretation Comme nts NA (test code = 7491862346) 138 mmol/L 135-145 K (test code = 1605569519) 3.9 mmol/L 3.5-5.0 CL (test code = 5487110443) 104 mmol/L 98-108 CO2 TOTAL (test code = 2216794149) 22 mmol/L 23-31 L AGAP (test code = 6164258148) 12 2-16 BUN (test code = 8409179065) 11 mg/dL 7-23 GLUCOSE (test code = 5078828673) 113 mg/dL 70-110 H CREATININE (test code = 2160-0) 0.50 mg/dL 0.50-1.04 TOTAL BILI (test code = 7008263215) 0.9 mg/dL 0.1-1.1 CALCIUM (test code = 5541349398) 9.5 mg/dL 8.6-10.6 T PROTEIN (test code = 9465281287) 8.5 g/dL 6.3-8.2 H ALBUMIN (test code = 3175783818) 4.8 g/dL 3.5-5.0 ALK PHOS (test code = 1327691058) 81 U/L 34-122 ALTv (test code = 1742-6) 15 U/L 5-35 AST(SGOT) (test code = 7306001680) 21 U/L 13-40 eGFR (test code = 91601-3) 132.0 mL/min/1.73m2 CKD-EPI eGFR (2020). Assuming creatinine has been stable day-to-day for at least three months, the eGFR indicates Category G1 (>= 90 mL/min/1.73 m2) Lab Interpretation (test code = 28043-1) [facility] Test Item Value Reference Range Interpretation Comme nts LIPASE (test code = 6928995891) 24 U/L 0-220 Lab Interpretation (test cod e = 94022-6) [id number] 06:27:08* Test Item Value Reference Range Interpretation [...] 33.9 g/dL 31.6-35.1 RDW-SD (test code = 17976-4) 48.3 fL 39.0-49.9 RDW-CV (test code = 788-0) 12.9 % 12.0-15.5 PLT (test code = 777-3) 402 166-358 H MPV (test code = 38372-2) 9.3 fL 9.5-12.9 L NRBC/100 WBC (test code = 8138197732) 0.0 0.0-10.0 NRBC x10^3 (test code = 2378736776) See_Comment [Automated message] The system which generated this result transmitted reference range: 10*3/?L. The reference range was not used to interpret this result as normal/abnormal. GRAN MAT (NEUT) % (test code = 770-8) 89.3 % IMM GRAN % (test code = 4910172788) 0.40 % LYMPH % (test code = 736-9) 7.4 % MONO % (test code = 5905-5) 2.7 % EOS % (test code = 713-8) 0.1 % BASO % (test code = 706-2) 0.1 % GRAN MAT x10^3(ANC) (test code = 2151152401) 12.26 10*3/uL 1.88-7.09 H IMM GRAN x10^3 (test code = 1671738608) 0.06 10*3/uL 0.00-0.06 LYMPH x10^3 (test code = 731-0) 1.02 10*3/uL 1.32-3.29 L MONO x10^3 (test code = 742-7) 0.37 10*3/uL 0.33-0.92 EOS x10^3 (test code = 711-2) 0.03-0.39 L BASO x10^3 (test code = 704-7) 0.01-0.07 Lab Interpretation (test code = 74721-6) Abnormal [facility] Yuhp0421-24-31 16:19:00* Test Item Value Reference Range Interpretation Comme nts POCT PREG (test code = 1605) Negative On board controls acceptable with C Line (test code = 3574) Yes POCT PREG LOT # (test code = 3575) [id number] POCT PREG TEST DATE ( test code = 3576) 05/27/2024 [facility] Jckv3077-83-06 16:19:00* Test Item Value Reference Range Interpretation Comme nts POCT PREG (test code = 1605) Negative On board controls acceptable with C Line (test code = 3574) Yes POCT PREG LOT # (test code = 3575) [id number] POCT PREG TEST DATE ( test code = 3576) 05/27/2024 [facility] [id number] 10:32:00* Test Item Value Reference Range Interpretation Comme nts POCT PREG (test code = 1605) Negative On board controls acceptable with C Line (test code = 3574) Yes POCT PREG LOT # (test code = 3575) [id number] POCT PREG TEST DATE ( test code = 3576) 2024-11-23 Lab Interpretation (test cod e = 81666-2) [facility] Xolo3825-22-78 16:13:04* Test Item Value Reference Range Interpretation Comme [facility] Case Report (test code = 2873531389) Surgical Pathology ?Case: [id number] ? Authorizing Provider: ?Yisel Hart MD ?Collected: ? 12/24/2023 1057 ?Ordering Location: ? ? GI Endoscopy OR Department Received: ?12/24/2023 1148 ?Pathologist: ? Brendon Dawson MD PhD ?Specimen: ? ?STOMACH, 1. gastric biopsy ? Final Diagnosis (test code = 8060173827) s1zacRFtQLFnq1mrHQSskJXqE zEwMzNcZnRuYmpcdWMxIHtccn PhVMltiLjdHYK0ATZoOD2rnKi gyNq8mBsyQHZevzN3fLXnRRnp h8ymITL4b6yuwqxaPNMnENycG r6lnAJoyIgtAeWcVMHnMGe6kO 37STYrlB6scZCsUKk1BVJkxJL rfgEqYtImFKZbwDAruYM2DQAu YL6iywuhGLxfDGyrCEUbpxY1W ELedBOwZ3MgDIHzNB2eflnoWR J1LQmwPCQlIEA7JmIwSYVkb8V wmby2NtFqqVIeADrccOOjnvek fkNvMLQqseLCEsOCWA5WSHYFX XUDMW0OR5j5QEZmatfxcHD9FJ FtREnHN9QPGSHlKLSOX0HZJJy HTApwIw6xBPULEN8YG7pJK9CF LMGADH2NENxhIYNrOCUUEpDLI 0JHFvqRVDUGFjMBXmKQH7SOEl HLUV7YJSKCEQHRWCXrZUXULvZ JRklFRFxwYXIgLSBOTyBILiBQ WUxPUkktTElLRSBPUkdBTklTT VMgSURFTlRJRklFRFxwYXJccG XmCDftAXB2d8idcVVaVVVsjOQ wYgLiXGCuHIIfg1dgEFSmnZKd ZzEwMzNcZnRuYmpcdWMxXGRlZ dGnt1krx213vSMre4eoPBWqMb T9cHTzAQDelTdgcrp0iXgmXxB yNOCfm9kigiBoDoSaYXSfCHZy JCTjzNJkQ157JGVmLJxfl0xhb 4MiQTLncFUpb0J0TRMUZRjbKc UdW055v8icc2rclzIopNT9ZHB eHFP6YFpghaQcstZ7FQoefMIa GbI2NTlgziHlBJmetlEemdCqE na8BYOpU024MMA7hUnyo2xbMJ O7NHOxZHChPuamQj6ebBKrE91 2PUOoMUBDFIActBf0GGOeklFd caTyzFTZc627D875i5omQZScg jZybAvZrhmpo0jdL356WRLnoL LfbmNoDkUrYZVraPZzqMB2XWM yKM0qjetiGXdcBPdnSDJybmW9 PQCzuRLrD1QqLVBzDY1hmeaoF QA2YNbrKJRvKYN8KyWvIBJin7 Ufdyt4FgZfce9ugy60WSV8j5E iuRpwDTV2NEY0WsDgTw0uoHSh ROLgNW5hOiPauCAzOSDnou31c KgsYJzwpcStuK4aKuNkPRNhbN YpXKMsXY0wdLFhNXWkcI5mhbf jXHBnYnJkcmhlYWRccGdicmRy Ba6ugTzcPQB2OMtaU4avaB6wA kP9CFrnG9ykbJ4sCEi9QXcjdD O7WCMxeC6tDI1kvpgxu1xlQPh yPCxtXQWjnbX6yoO1QNMoaXTi P3LfbD9yUEWoVI0ffiznr5fzB CD3XZtdNRInALF6QqIfHDZry1 Ljvew0AyFbj7YnoPXjXWufI59 mk428PKBjroHlR3ejbBXzomxs wGLnatemSOcmfvB0QREwUDYkK WluXGYxXGZzMjBcbGFuZzEwMz NcaGljaFxmMVxkYmNoXGYxXGx xT0loDpIiZ1ShBEGvEuKbfQZw BTclaBC8VYMeHQCui51hxYw2H TJyomtox8IiPVOybIYkgYYncP 3ckaXei5oxFCQuUQNpCPMxB0V yPJX9iYAhIQAdhZTorTS0DC0n wmJeVG9dNGBfSdxrhpTpiNApr zTxQNYbLRbfy9twDF4bOZXslO bykC8twVZ7VZGzm4ixlHXioUR ra1mms2HsczJuTDygZRDmTGfu QIHeGAIpNB4bFXMugLZsjnYna 4O1GuvasFZqbstmPvvejkQ1BC tynnusHSMfWNotQ9jpNgPiWJV cjBagWrhdb3VwGOKlHSErAaaz cGFyfX0= Clinical Information (test code = 3552422444) Lanre Bales is a 28 year old femaleHematemesis with nausea [K92.0]Coffee ground emesis [K92.0]Abdominal pain, epigastric [R10.13]1. gastric biopsy eval H pylori Gross Description (test code = 3467270361) p2wzzUByEXBszJRICZN9RJLqV Q5oaUmygGv0nXsdIXHkhoS5zL YaTOfsp9fyMAK4u7gmybTFZys kKAJiXK7cWOsiHGMeEB2oLuVs XGRlZmYxXHBhcGVydzEyMjQwX WUyaAUdkWW8YKNwQI5rtyomIP ebNLfpLKQxiqQ7TCBtfPMzZ8N jUSBrOK0hvgayXLI5BBIIPsvi Hj1uuTWjzEdwBjKbXbYsCSIhW MLsQEQrl0ogduIOebiegVb0pU 7OVMMhU1RjGI3Yh9xdSDTvoBU nKEE8FLgiw1wsSLbqOUP2FNPc SIPxAURkRU5BLwXtPUF4SRo8Y MUeToE4CGs7KOXNGUEaHYG9JU N5LnW9CVm3WQRlFO4tRYtlyDU iYEnvSnqfDHhuL211HQpvPTYn G4JxQ0XwZAhiDyEbFTjsQIDhF KBpLFvdKHNoE5OXPENiAAT9ST W1IXVkPGt2EKj9NT3MTeNuNFB tWnz2UjF3VHBsYOz3ZNofZY2S UFNqDWN4FRngMwUbYGRpOUZeY Qv2RPMeSIksixVlZCbvTzssED jfD01zqYFwEHXWXnftyLPsqaz mczIwIFNQRUNJTUVOIEFcbHRy A9laHlWrTwlkUIAkIFfedKBnQ CANClxwbGFpblxsdHJjaFxmcz KpMBYziEBWPDK8IE4bULTCXoi noVDgHJNqSCgVmICvaO7ixvSY KSpaKRLrE1OzagFlIUerLNZdk s8avKefFVboVlDfcCPgVXyhuS jauAtxOBFygIrgkfSiV8W6kfA zGP3mCBCITASooY1uEGOlUQHd b9UrlGYsxCimB3EhtGGyLwPyb U4vg1pzZ9B2JPcGWVRfkzHhR8 0sf9obmMIsn5KhSjT7OM1twJs zvpScxjLqQ0QxMAVwt99chYL7 bOYmkPPjMqGhO08ckgKlCNwjG eUoQL33VJQpULewFJH9SHF0WQ CblEHzm7eikbxuIN20KIcjFG4 6XIwxHX0dPCSfYTvqCBZaT2Gn C2J9MCpiEFBkZIOerMTjnZ4et aDgukTsfUl7NSKvBIW7sYCwzR uvFNTaMjjliWY4CTEjJnMqhyY fw6WlyQt7gYDwZJtwLOQnlJ5g oL8fIYCqNLRygjRQVkcmLJAyC Eqtp9RjLYaakBcyZEPsWtEdMY vQpPtrFNTTJ1cwjOXvVXsnLEP APZkDP7IGHE6YEWIdoVKMJQR1 PN7cDIdkTONvW0QdL7JxqnE3m 4mvqXxse4IbnFGxAA6dtKScDY 2EJWMfqgViNRz6 Disclaimer (test code = 4724223676) b1qvqFZnSDIlw9znKUAjuFNjW zEwMzNcZnRuYmpcdWMxIHtccn KeRAryt1OqC1MgYkZbIAfclhT rSKIqVucuxkjvBQPzKMU2mkJi GKLoJFcvQQZqEXjrNw9djKQxs IrxLzVnBDAmn3pphqJLVKfhFr HzX805FEHzSKhuc0jwh8VsWRD yjIZkd9I6QTZZvkdveYs0hQwz I73ri3Q0AhipY0doELOzYJWpV 7HkXO5fUUXiYmt8MPR2UUU4KE BsQWDhJ4PjWW1hVYKifYGhVKy 4y8olfPdlGRFrUUS2q3tpSVgt odHiCU8rad3omVd4g8axsaRkJ VWiHJRmhEJZZTMiS9YtsLwmHf 5gqZn8zUtwQlbdWCG8Lse5KE0 pyp19eij7bFgmJNOyrhclVaX7 HIxmFKHodmnqWEe3YOjcOUMfq GH1GLUirJHfO2ZpCOOlGH4ndd u8VHT6JNfoHTOhXtP7MHQprHN uLCPsaIsyPRkig352HSF8WcZo JU9eI9Hqt2E3oN9cjGXmWWSsq QRlQmIbHRNgua0tiODcHVfta5 RxUCE9grT4jZYnhBKmZNWvXL4 2Dyxoj8TtClwdm9XjN04uaCF4 NDldw0spZF2aWyN8evBxEIeqx 8pepW5uLhP2QFljVP9lPO6yXL QooW9uczxbQUVyJtAqaokeUIQ faZkqvrYlHb3ijBtyRFE6CEpi W2jajT2sVzH0AHrnA1ymcU5mG Ix5FEvapVS3DIAhyX7qHZ3kcu cfo2svBMevESuzTOPovcB8yqS 1QGZscOBbE5JlmE0gBMEwTD7m ynpsj9cfKBG3VJcaCXPbCNN4A qRkRTHws5Gkyag0WxJzm7BkmB BnRMxsT21xq630QMOpphYvE7u wbGFpblxwbGFpblxmMFxmczI0 LHFejvThk9HhSMZyRKQ5AAbjR NvfdRWdLUOecWmwk3ogJ6VmqA FyXHBsYWluXGYxXGZzMjBcbGF uZzEwMzNcaGljaFxmMVxkYmNo SZRePXqvB1lyEsVnE9OfWGPgX kWdiPYvU4cnYSrdrzFzNHBrqh PoxWM2CJywK0y9TVXrrmLqlVc 5xvYkMbZrXUJyWBM7CWcpuDRs AODof8WwqvtsuVRgRx2umKOzW PDhpM5dJHWaWJTpZLcaDA0qjI u0HYTTlMGnbXYiTiDTHEAwAX8 6jkNcLFSFhklwd0K1IMjyBCMy s3VsbSMqW5yzp0IfPFOla27xQ V0dx6G7y6cdRCU0NN9zj1JjCM SihTQllATaMENht3Goxusox3Y nLSTkslTvm7JfUATknrMefCVe UDVvnkYhko7xwvXkRDVvFAVdT 3KoyrsmqLjlhpDhEDNisg8fic NoBJF5GUMACFPfWGNyx8UysI8 fkSOOZGK6zFBmcn7ynmOXdCRo AITfkb33CMEeOD9kG6ewWTTkR FLpqhTsdFSfd5AkJYLnzRY0lP XwWL6WPvKQp23jMGNrCDXUnuS iOJYzdSbkyOX4ysP2dJ8gSLbZ REEpLlx+LWIwAAKLBSUrYL7zw iDiu7RujfBreCoqKNLavIEqt9 NpyAOqa5YtrNbxj3QvqUNetFR lTF9cNAEezzbzJULgFMWWQnBS QFOebjD4a3UaOWFaNZMgTIL2z Vxkbny9PBJfhY2qMOYdR6lknd gyDFdrLBSbr8SzdC4eoEAEhIR sm1CbaXBbcFTFlLOoMH0ffcIr HKcLGToEAIP0uhLzSCCqh0NiQ AyqR8npR43xxNcvqFb6cGQ7XP P3gQ5vXih+IFxwYXJccGFyIEF zsQTyyOPrLMNegLyvgtKkZ3Bu owBwyE6ugEVbinDwIO4qUR3vL 4L0pICcFBGidpItv1bjELhcdt EhZwLnhwAkIQZqPLmbVPXnb9U bSFgcXEF9NRgfwfGyxvQxdBBf afuaINBRHKRPvCEkvFUbXMA8Y CxjcvRmlzGlLO3jpN8woVyqxS 4bsWUhkLZ5xilyCEOxBDXnpGq kDZFtSU1ykFknqL3tMiGqFbSd AHgkLI2pEODxK7bfuCGjPCJkD ELoF4dmVoVmtD7zwNxhJPzuBm JcZnMyMFxwYXJccGFyXHBsYWl uXGYxXGZzMjBcbGFuZzEwMzNc aGljaFxmMVxkYmNoXGYxXGxvY 3zgVkNvE8OqXPMtOoMkgLLiI9 qfXAkqTCM9LZCqPY9pdNCgSW3 7tITsh9dkJDamkAxynq2wC38o jENjGRuqnMhwVQAmy18hs0VtM ZTmttGbzv1xDOKnddD5sL6kUP UbxZnpHEQyuNTeIZGay5YmNMg naXRpemVkIGdsYXNzIHNsaWRl dyW8omTpabKbhlJrDYRnxPnuB SLch4ZfXOQvXMkoc1Sybg9gmD EpUBBkdyTNyDputBUpmO2iZ6P lHLNeWFRktr6xKHKidQ4vPCie e7QroouxNQCyBJDpBGZlrjYdu y6tKTVouJKXLO9GQGnzzRTsa6 InocJfG2rQULA9FVEnXnWmMga lUVTytBKrcLIbKTVfla53VSPf cY3myZwoUSQwfK4cmM3oeBijv A7rLxAgPnXfAVqaRK7nFWXmD8 zwyURhOASqXZCuQ1rbLtIkgX6 jaFxmMVxjZjJcZnMyMFxwYXJ9 fQ== Embedded Images (test code = 7350257682) [facility] OVARY [id number] 16:40:41EXAM: US OVARY TORSION HISTORY: 28 years-old Female; Provided indication: eval for torsion; pelvicpain; bilateral 5.1cm cysts seen on CT . LMP = 4Pregnancy test = Negative. TECHNIQUE: Transabdominal and transvaginal ultrasound imaging and colorDoppler evaluation of the pelvis was performed. Spectral Doppler evaluationof the ovaries was performed. Silver Wrapper images were obtained for therecord. COMPARISON: Same [...] arevisualized. Normal flow is seen on color Doppler.[facility] Center[facility]EN PELVIS W [id number] 14:33:00Indication: Nausea/vomiting ? Comparison: None RL: 4209 [...] soft tissue: No acute osseous abnormality is noted.[facility] CenterPregnancy Test, Wtesh4955-06-79 11:59:46* Test Item Value Reference Range Interpretation Comme nts PREG SERUM (test code = 5736343112) Negative RUMA (test code = RUMA) Less than 10 IU/L. ?If low titer or ectopic is suspected, resubmit specimen in 48-72 hours. [facility] CenterComplete Metabolic Qjqbf4726-37-84 11:58:40* Test Item Value Reference Range Interpretation Comme nts NA (test code = 2586234165) 138 mmol/L 135-145 K (test code = 2210063209) 3.5 mmol/L 3.5-5.0 CL (test code = 4876673231) 106 mmol/L 98-108 CO2 TOTAL (test code = 4069877483) 23 mmol/L 23-31 AGAP (test code = 6652296369) 9 2-16 BUN (test code = 6176200274) 6 mg/dL 7-23 L GLUCOSE (test code = 5179990343) 122 mg/dL 70-110 H CREATININE (test code = 2160-0) 0.61 mg/dL 0.50-1.04 TOTAL BILI (test code = 5308759380) 0.6 mg/dL 0.1-1.1 CALCIUM (test code = 8076763165) 9.0 mg/dL 8.6-10.6 T PROTEIN (test code = 8546565660) 8.1 g/dL 6.3-8.2 ALBUMIN (test code = 0857411378) 4.4 g/dL 3.5-5.0 ALK PHOS (test code = 7657399017) 85 U/L 34-122 ALTv (test code = 1742-6) 20 U/L 5-35 AST(SGOT) (test code = 3887672618) 19 U/L 13-40 eGFR (test code = 66747-0) 125.8 mL/min/1.73m2 CKD-EPI eGFR (2020). Assuming creatinine has been stable day-to-day for at least three months, the eGFR indicates Category G1 (>= 90 mL/min/1.73 m2) Lab Interpretation (test code = 77684-6) Abnormal [facility] CenterLipase, Fwbgi6179-36-23 11:58:19* Test Item Value Reference Range Interpretation Comme nts LIPASE (test code = 6630545279) 40 U/L 0-220 Lab Interpretation (test cod e = 58292-1) Normal [facility] CenterCBC with Cvsfqctojnjg1664-70-96 11:41:57* Test Item Value Reference Range Interpretation [...] 32.8 g/dL 31.6-35.1 RDW-SD (test code = 67314-7) 51.3 fL 39.0-49.9 H RDW-CV (test code = 788-0) 13.7 % 12.0-15.5 PLT (test code = 777-3) 349 166-358 MPV (test code = 86326-3) 9.3 fL 9.5-12.9 L NRBC/100 WBC (test code = 3861479554) 0.0 0.0-10.0 NRBC x10^3 (test code = 7560520290) See_Comment [Automated messa ge] The system which generated this result transmitted reference range: 10*3/?L. The reference range was not used to interpret this result as normal/abnormal. GRAN MAT (NEUT) % (test code = 770-8) 73.3 % IMM GRAN % (test code = 9518711981) 0.40 % LYMPH % (test code = 736-9) 19.0 % MONO % (test code = 5905-5) 4.8 % EOS % (test code = 713-8) 2.0 % BASO % (test code = 706-2) 0.5 % GRAN MAT x10^3(ANC) (test code = 0071648319) 7.18 10*3/uL 1.88-7.09 H IMM GRAN x10^3 (test code = 5854999854) 0.04 10*3/uL 0.00-0.06 LYMPH x10^3 (test code = 731-0) 1.86 10*3/uL 1.32-3.29 MONO x10^3 (test code = 742-7) 0.47 10*3/uL 0.33-0.92 EOS x10^3 (test code = 711-2) 0.20 10*3/uL 0.03-0.39 BASO x10^3 (test code = 704-7) 0.05 10*3/uL 0.01-0.07 Lab Interpretation (test code = 95887-3) Abnormal [facility] CenterCOMP. METABOLIC PANEL (43214)2023-11-08 17:45:25* Test Item Value Reference Range Interpretation Comme nts NA (test code = 7074526016) 136 mmol/L 135-145 K (test code = 5265818594) 3.1 mmol/L 3.5-5.0 L CL (test code = 5947067985) 105 mmol/L 98-108 CO2 TOTAL (test code = 4260341261) 21 mmol/L 23-31 L AGAP (test code = 1181621143) 10 2-16 BUN (test code = 5125617370) 12 mg/dL 7-23 GLUCOSE (test code = 4502122772) 92 mg/dL 70-110 CREATININE (test code = 2160-0) 0.57 mg/dL 0.50-1.04 TOTAL BILI (test code = 9153112007) 0.6 mg/dL 0.1-1.1 CALCIUM (test code = 7146076065) 9.0 mg/dL 8.6-10.6 T PROTEIN (test code = 6277879699) 8.0 g/dL 6.3-8.2 ALBUMIN (test code = 3768914046) 4.3 g/dL 3.5-5.0 ALK PHOS (test code = 0362272025) 81 U/L 34-122 ALTv (test code = 1742-6) 17 U/L 5-35 AST(SGOT) (test code = 5362799153) 45 U/L 13-40 H eGFR (test code = 17293-6) 127.9 mL/min/1.73m2 CKD-EPI eGFR (2020). Assuming creatinine has been stable day-to-day for at least three months, the eGFR indicates Category G1 (>= 90 mL/min/1.73 m2) Lab Interpretation (test code = 10959-4) Abnormal [facility] CenterLIPASE2024-09-19 16:30:35* Test Item Value Reference Range Interpretation Comme nts LIPASE (test code = 8077935977) 53 U/L 0-220 Lab Interpretation (test cod e = 88004-5) Normal [facility] CenterCBC WITH [id number] 16:15:57* Test Item Value Reference Range Interpretation [...] 33.1 g/dL 31.6-35.1 RDW-SD (test code = 19495-7) 50.1 fL 39.0-49.9 H RDW-CV (test code = 788-0) 13.8 % 12.0-15.5 PLT (test code = 777-3) 471 166-358 H MPV (test code = 53437-8) 9.2 fL 9.5-12.9 L NRBC/100 WBC (test code = 7898444785) 0.0 0.0-10.0 NRBC x10^3 (test code = 6104707447) See_Comment [Automated messa ge] The system which generated this result transmitted reference range: 10*3/?L. The reference range was not used to interpret this result as normal/abnormal. GRAN MAT (NEUT) % (test code = 770-8) 77.8 % IMM GRAN % (test code = 1741467893) 0.30 % LYMPH % (test code = 736-9) 16.7 % MONO % (test code = 5905-5) 4.7 % EOS % (test code = 713-8) 0.2 % BASO % (test code = 706-2) 0.3 % GRAN MAT x10^3(ANC) (test code = 8807052385) 9.31 10*3/uL 1.88-7.09 H IMM GRAN x10^3 (test code = 7183939276) 0.04 10*3/uL 0.00-0.06 LYMPH x10^3 (test code = 731-0) 1.99 10*3/uL 1.32-3.29 MONO x10^3 (test code = 742-7) 0.56 10*3/uL 0.33-0.92 EOS x10^3 (test code = 711-2) 0.03-0.39 L BASO x10^3 (test code = 704-7) 0.03 10*3/uL 0.01-0.07 Lab Interpretation (test code = 94283-2) Abnormal [facility] [id number] 16:01:00* Test Item Value Reference Range Interpretation Comme nts POCT PREG (test code = 1605) Negative On board controls acceptable with C Line (test code = 3574) Yes POCT PREG LOT # (test code = 3575) [id number] POCT PREG TEST DATE ( test code = 3576) 11-28-24 Lab Interpretation (test cod e = 12215-0) Normal [facility] KWUH2116-88-73 16:30:00* Test Item Value Reference Range Interpretation Comme nts POCT PREG (test code = 1605) Negative On board controls acceptable with C Line (test code = 3574) Yes POCT PREG LOT # (test code = 3575) [id number] POCT PREG TEST DATE ( test code = 3576) 03/28/2024 Lab Interpretation (test cod e = 13314-4) Normal [facility] SPQX4168-67-35 20:18:00* Test Item Value Reference Range Interpretation Comme nts POCT PREG (test code = 1605) Negative On board controls acceptable with C Line (test code = 3574) Yes POCT PREG LOT # (test code = 3575) POCT PREG TEST DATE ( test code = 3576) [facility] CenterPOCT GIAH6489-84-49 20:18:00* Test Item Value Reference Range Interpretation Comme nts POCT PREG (test code = 1605) Negative On board controls acceptable with C Line (test code = 3574) Yes POCT PREG LOT # (test code = 3575) POCT PREG TEST DATE ( test code = 3576) [facility] CenterADC OR [facility] ONLY - DVM8711-82-20 04:42:10* Test Item Value Reference Range Interpretation Comme nts RPR (Qualitative) (test code = 30477-3) Nonreactive Nonreactive Lab Interpretation (test cod e = 35365-7) Normal [facility] CenterHepatitis B Surface Bnbrios9320-82-27 17:49:35 * Test Item Value Reference Range Interpretation Comme nts HBsAg Semi-Quantitative (mesha t code = 5195-3) Negative Negative [facility] CenterHIV 1/2 AG-AB WITH [id number] 12:19:16* Test Item Value Reference Range Interpretation Comme nts HIV Semi-quantitative (test code = 23334-6) Negative Negative RUMA (test code = RUMA) Non-reactive for HIV-1 antigen and HIV-1/HIV-2 antibodies. ?No laboratory evidence of HIV infection. ?Repeat in 2-4 weeks if acute HIV infection is suspected. [facility]. METABOLIC PANEL (90234)2021-11-26 11:29:08* Test Item Value Reference Range Interpretation Comme nts NA (test code = 9041945251) 137 mmol/L 135-145 K (test code = 5228799960) 3.6 mmol/L 3.5-5 CL (test code = 3716733689) 105 mmol/L 98-108 CO2 TOTAL (test code = 3433968008) 21 mmol/L 23-31 L AGAP (test code = 7658399905) 2-16 BUN (test code = 1090775644) 4 mg/dL 7-23 L GLUCOSE (test code = 0688639160) 93 mg/dL 70-110 CREATININE (test code = 7955683874) 0.49 mg/dL 0.5-1.04 L TOTAL BILI (test code = 5358663642) 0.2 mg/dL 0.1-1.1 CALCIUM (test code = 5551442019) 9.0 mg/dL 8.6-10.6 T PROTEIN (test code = 7227488229) 6.9 g/dL 6.3-8.2 ALBUMIN (test code = 9805072089) 3.7 g/dL 3.5-5 ALK PHOS (test code = 8615281089) 169 U/L 34-122 H ALTv (test code = 1742-6) 15 U/L 5-35 AST(SGOT) (test code = 3286394370) 23 U/L 13-40 eGFR (test code = 8561813897) mL/min/1.73m2 RUMA (test code = RUMA) Association [...] imaging tests). Lab Interpretation (test code = 67697-0) [id number] 11:28:48* Test Item Value Reference Range Interpretation Comme nts URIC ACID (test code = 0543693442) 3.4 mg/dL 2.9-6 Lab Interpretation (test cod e = 49299-4) [id number] 11:24:10* Test Item Value Reference Range Interpretation Comme nts LDH (test code = 6193697368) 216 U/L 120-246 Lab Interpretation (test cod e = 74831-9) [facility] - ONCE [id number] 10:30:18 * Test Item Value Reference Range Interpretation Comme nts ABO & RH (test code = 20) O Positive Performed at [facility] Laboratory [facility] Blood [address] [place], [place] [address]Toll Free: [phone] No. [id number] IAT (test code = 1185) Negative Performed at [facility] Blood [place] [address]Toll Free: [phone] No. [id number] [facility] CenterCBC with [id number] 09:46:38* Test Item Value Reference Range Interpretation [...] 34.9 g/dL 31.6-35.1 RDW-SD (test code = 81871-8) 40.9 fL 39-49.9 RDW-CV (test code = 788-0) 12.2 % 12-15.5 PLT (test code = 777-3) See_Comment [Automated messa ge] The system which generated this result transmitted reference range: 166 - 358 10*3/?L. The reference range was not used to interpret this result as normal/abnormal. MPV (test code = 65554-3) 9.9 fL 9.5-12.9 NRBC/100 WBC (test code = 0422022563) See_Comment [Automated [employer] ssage] The system which generated this result transmitted reference range: 0.0 - 10.0 /100 WBCs. The reference range was not used to interpret this result as normal/abnormal. NRBC x10^3 (test code = 6259369590) See_Comment [Automated messa ge] The system which generated this result transmitted reference range: 10*3/?L. The reference range was not used to interpret this result as normal/abnormal. GRAN MAT (NEUT) % (test code = 770-8) 70.4 % IMM GRAN % (test code = 9034357965) 0.70 % LYMPH % (test code = 736-9) 20.1 % MONO % (test code = 5905-5) 6.0 % EOS % (test code = 713-8) 2.5 % BASO % (test code = 706-2) 0.3 % GRAN MAT x10^3(ANC) (test code = 3446451622) 8.92 10*3/uL 1.88-7.09 H IMM GRAN x10^3 (test code = 2549299177) 0.09 10*3/uL 0-0.06 H LYMPH x10^3 (test code = 731-0) 2.55 10*3/uL 1.32-3.29 MONO x10^3 (test code = 742-7) 0.76 10*3/uL 0.33-0.92 EOS x10^3 (test code = 711-2) 0.32 10*3/uL 0.03-0.39 BASO x10^3 (test code = 704-7) 0.04 10*3/uL 0.01-0.07 Lab Interpretation (test code = 44773-7) Abnormal [facility] URINALYSIS W SPECIFIC [id number] 14:56:00* Test Item Value Reference Range Interpretation [...] U APPEAR (test code = 3267) [facility] URINALYSIS W SPECIFIC [id number] 14:56:00* Test Item Value Reference Range Interpretation [...] U APPEAR (test code = 3267) [facility] URINALYSIS W SPECIFIC [id number] 14:58:00* Test Item Value Reference Range Interpretation [...] U APPEAR (test code = 3267) [facility] URINALYSIS W SPECIFIC [id number] 14:58:00* Test Item Value Reference Range Interpretation [...] U APPEAR (test code = 3267) [facility] URINALYSIS W SPECIFIC [id number] 14:58:00* Test Item Value Reference Range Interpretation [...] U APPEAR (test code = 3267) [facility] URINALYSIS W SPECIFIC [id number] 14:58:00* Test Item Value Reference Range Interpretation [...] U APPEAR (test code = 3267) [facility] URINALYSIS W SPECIFIC [id number] 14:58:00* Test Item Value Reference Range Interpretation [...] POCT U APPEAR (test code = 3267) [facility] [id number] 18:21:00* Test Item Value Reference Range Interpretation [...] POCT U APPEAR (test code = 3267) [facility] History and Physical Notes Date/Time Note Provider Source 2024-01-29 09:03:32 Patient seen and examined in the preop/DSU area. No changes in history and physical from our note below. -OR today for laparoscopic cholecystectomy -NPO past midnight -Surgical consent signed Kiko Belcher MD 01/29/2024 9:03 AM PGY4, General Surgery [employer] Associated attestation - Eva Bryan MD - 01/29/2024 10:25 AM [employer] Attending Attestation: I personally evaluated and examined [...] Eva Bryan MD - 01/07/2024 11:15 AM [employer] Images from the original note were not included. GENERAL SURGERY CLINIC NOTE Reason for Visit / Chief Complaint: Abdominal pain, gallstones History of Present Illness: Lanre Bales is a 28 year old female with PMHx as below who presents for evaluation of abdominal pain and gallstones. She was seen at [facility] ED in 11/08/2023 for vomiting. Work up [...] lives with mother and child, FOB involved. [employer] preference: Yarsanism. Has one cat, educated about diego litter [...] min Stress: No Stress Concern Present (12/19/2022) [employer] [place] [employer] - Occupational Stress Questionnaire Feeling of Stress : Not at all Social Connections: Moderately Integrated (12/19/2022) Social Connection and Isolation Panel [NHANES] Frequency of Communication with Friends and Family: More than three times a week Frequency of Social Gatherings with Friends and Family: Twice a week Attends [employer] Services: 1 to 4 times per year [...] othopnea, claudication, edema, coronary artery disease/history of [place] Respiratory: Cough, sputum production, hemoptysis, wheezing, shortness [...] consent obtained. Eva Bryan M.D. 01/07/2024 14:58 [facility]
[2024-03-16] MEDS ORDERED: ONDANSETRON 4 MG/2 ML VIAL ONE ×2 (14:08→14:58)
[2024-03-16] MEDS ORDERED: CEFTRIAXONE 1000 MG/VIAL ONE (14:08)
[2024-03-16] MEDS ORDERED: LIDOCAINE VISCOUS 2% 10ML ORAL SOLN ONE (14:09)
[2024-03-16] MEDS ORDERED: MAGNES/ALUMIN/SIMET 30ML UCUP ONE (14:09)
[2024-03-16] MEDS ORDERED: NA CHLORIDE 0.9% 1,000 ML ONE (14:09)
[2024-03-16] MEDS ORDERED: FAMOTIDINE 20 MG/2 ML VIAL IV ONE (14:09)
[2024-03-16] MEDS ORDERED: MORPHINE 4 MG/ML SYR ONE (14:58)
--- NOTE | 2024-03-16 14:59 | ER ---
Nurse's Notes [facility] Name: Robin Bernard Age: 28 yrs Sex: Female : 1995 Arrival Date: 03/16/2024 Time: 13:23 Bed DX2 Private MD: Diagnosis: Acute gastritis without bleeding Presentation: 03/16 13:34 Chief complaint: Patient states: RIGHT LOWER DENTAL PAIN X 4 OR 5 DAYS. NOW HAS ABD db PAIN WITH NAUSEA FROM TAKING ANTIBIOTICS AND IBUPROFEN. Coronavirus screen: Client denies travel out of the [place] in the last 14 days. At this time, the client does not indicate any symptoms associated with coronavirus-19. Ebola Screen: Patient negative for fever greater than or equal to 101.5 degrees Fahrenheit, and additional compatible Ebola Virus Disease symptoms Patient denies exposure to infectious person. Patient denies travel to an Ebola-affected area in the 21 days before illness onset. No symptoms or risks identified at this time. Initial Sepsis Screen: Does the patient meet any 2 criteria? No. Patient's initial sepsis screen is negative. Does the patient have a suspected source of infection? No. Patient's initial sepsis screen is negative. Risk Assessment: Do you want to hurt yourself or someone else? Patient reports no desire to harm self or others. Onset of symptoms was March 16, 2024. 13:34 Method Of Arrival: Ambulatory db 13:34 Acuity: BOZENA 3 db Triage Assessment: 13:36 General: Appears in no apparent distress. uncomfortable, Behavior is calm, cooperative. db Pain: Complains of pain in mouth. EENT: Reports pain in lower right first molar and lower right second molar. Historical: - Allergies: 13:36 Reglan; db - PMHx: 13:36 gastritis; insomnia; Placenta Previa; db - PSHx: 13:36 Cholecystectomy; db - Immunization history:: Adult Immunizations unknown. - Infectious Disease History:: Denies. - Social history:: Smoking status: unknown. - Family history:: not pertinent. - Hospitalizations: : No recent hospitalization is reported. Screenin:[address] [facility] ED Fall Risk Assessment (Adult) History of falling in the last 3 months, hb including since admission No falls in past 3 months (0 pts) Confusion or Disorientation No (0 pts) Intoxicated or Sedated No (0 pts) Impaired Gait No (0 pts) Mobility Assist Device Used No (0 pt) Altered Elimination No (0 pt) Score/Fall Risk Level 0 - 2 = Low Risk Oriented to surroundings, Maintained a safe environment, Educated pt \T\ family on fall prevention, incl call for assistance when getting out of bed. Abuse screen: Denies threats or abuse. Denies injuries from another. Nutritional screening: No deficits noted. Tuberculosis screening: No symptoms or risk factors identified. Assessment: 14:45 General: Appears in no apparent distress. uncomfortable, Behavior is calm, cooperative. hb Pain: Pain currently is 7 out of 10 on a pain scale. Neuro: Level of Consciousness is awake, alert, obeys commands, Oriented to person, place, time, situation. Cardiovascular: Patient's skin is warm and dry. Respiratory: Respiratory effort is even, unlabored, Respiratory pattern is regular, symmetrical. GI: Reports upper abdominal pain, nausea, vomiting. EENT: Reports DENTAL PAIN. 15:18 Reassessment: Patient appears in no apparent distress at this time. Patient and/or hb family updated on plan of care and expected duration. Pain level reassessed. Patient is alert, oriented x 3, equal unlabored respirations, skin warm/dry/pink. Vital Signs: 13:34 BP 137 / 102; Pulse 110; Resp 16; Temp 97.3; Pulse Ox 100% on R/A; db ED Course: 13:24 Patient arrived in ED. im 13:26 Robert Wolf MD is Attending Physician. rn 13:36 Triage completed. db 13:36 Arm band placed on. db 14:10 Inserted saline lock: 20 gauge in right antecubital area, using aseptic technique. kb4 Flushed with 10 mL NS. 14:11 Warm blanket given. kb4 14:45 Patient has correct armband on for positive identification. Provided Education on: hb MEDICATIONS. 15:15 Nancie Whalen, RN is Primary Nurse. hb 15:19 No provider procedures requiring assistance completed. hb 15:19 IV discontinued, intact, bleeding controlled, No redness/swelling at site. Pressure hb dressing applied. Administered Medications: 13:39 CANCELLED (Duplicate Order): rocephin (ceftriaxone)1 grams IM once rn 14:19 Drug: NS 0.9% IV 1000 ml IV at 1000 ml once; to be given as a bolus over 60 minutes hb Route: IV; Rate: 1000 ml; Site: right antecubital; 15:15 Follow up: Response: No adverse reaction; IV Status: Completed infusion; IV Intake: hb 1000ml 14:19 Drug: Ondansetron IVP 4 mg IVP once; over 2 minutes Route: IVP; Site: right antecubital;hb 15:00 Follow up: Response: No adverse reaction hb 14:19 Drug: Famotidine IVP 20 mg IVP once; dilute with 10 mL 0.9% NaCl; give over 2 minutes hb Route: IVP; Site: right antecubital; 15:00 Follow up: Response: No adverse reaction hb 14:19 Drug: GI Cocktail without - (Maalox PO 30 ml, Lidocaine Mucous Membrane 2 % 15 hb ml) PO once Route: PO; 15:00 Follow up: Response: No adverse reaction hb 14:19 Drug: Rocephin IV 1 grams IV at calculated rate once; Given slow IV push per pharmacy hb instructions Route: IV; Rate: calculated rate; Site: right antecubital; 14:20 Follow up: IV Status: Completed infusion; IV Intake: 10ml hb 15:00 Follow up: Response: No adverse reaction hb 14:58 Drug: morphine IVP or IV 4 mg IVP once over 4 mins Route: IVP; Infused Over: 4 mins; hb Site: right antecubital; 15:16 Follow up: Response: No adverse reaction hb 14:58 Drug: Ondansetron IVP 4 mg IVP once; over 2 minutes Route: IVP; Site: right antecubital;hb 15:16 Follow up: Response: No adverse reaction hb Medication: 15:18 VIS not applicable for this client. hb Intake: 14:20 IV: 10ml; Total: 10ml. hb 15:15 IV: 1000ml; Total: 1010ml. hb Outcome: 14:58 Discharge ordered by . rn 15:19 Discharged to home ambulatory, hb 15:19 Condition: stable 15:19 Discharge instructions given to patient, Instructed on discharge instructions, follow up and referral plans. medication usage, Demonstrated understanding of instructions, follow-up care, medications, 15:19 Patient left the ED. hb Signatures: Robert Wolf MD MD rn Baxter, Heather, RN RN hb Benton, Danielle, RN RN db Mendoza Bibiana im Paul, Lilia kb4 Corrections: (The following items were deleted from the chart) 13:37 13:34 BP 144 / 105; Pulse 110bpm; Resp 16bpm; Pulse Ox 100% RA; Temp 97.3F; db db 15:19 15:19 Discharge instructions given to patient, Instructed on discharge instructions, hb follow up and referral plans. medication usage, Demonstrated understanding of instructions, follow-up care, medications, Prescriptions given X 1, hb
--- NOTE | 2024-03-16 14:59 | EDPHYS ---
Physician Documentation [facility] Name: Robin Bernard Age: 28 yrs Sex: Female : 1995 Arrival Date: 03/16/2024 Time: 13:23 Bed DX2 Private MD: ED Physician Robert Wolf HPI: 03/16 13:46 This 28 yrs old Black Female presents to ER via Ambulatory with complaints of rn Toothache, Abdominal Pain, Vomiting. 13:46 Patient reports seen recently for tooth pain, prescribed antibiotic and gabapentin. rn States she did not like how the gabapentin made her feel so she has been taking Tylenol and Motrin and things upset her stomach. Has history of gastritis. Has not taken her Protonix in the last couple days. Patient reports nausea/vomiting and indigestion for the last 2 days. No blood in emesis or stool. Dental pain is not getting worse but not getting better either. Plans on seeing a dentist later this week.. Historical: - Allergies: 13:36 Reglan; db - PMHx: 13:36 gastritis; insomnia; Placenta Previa; db - PSHx: 13:36 Cholecystectomy; db - Immunization history:: Adult Immunizations unknown. - Infectious Disease History:: Denies. - Social history:: Smoking status: unknown. - Family history:: not pertinent. - Hospitalizations: : No recent hospitalization is reported. ROS: 13:46 Constitutional: Negative for fever, chills, and weight loss, Cardiovascular: Negative rn for chest pain, palpitations, and edema, Respiratory: Negative for shortness of breath, cough, wheezing, and pleuritic chest pain, Abdomen/GI: Negative for diarrhea, and constipation, MS/Extremity: Negative for injury and deformity, Skin: Negative for injury, rash, and discoloration, Neuro: Negative for headache, weakness, numbness, tingling, and seizure, Exam: 13:46 Constitutional: This is a well developed, well nourished patient who is awake, alert, rn appears uncomfortable Cardiovascular: Tachycardic, regular. No pulse deficits. Respiratory: No increased work of breathing, no retractions or nasal flaring. Abdomen/GI: Soft, mild epigastric tenderness. No rebound or guarding MS/ Extremity: Pulses equal, no cyanosis. Neuro: Awake and alert, GCS 15 Vital Signs: 13:34 BP 137 / 102; Pulse 110; Resp 16; Temp 97.3; Pulse Ox 100% on R/A; db MDM: 13:26 Medical Screening Exam initiated rn 14:57 Differential diagnosis: dental caries. Data reviewed: vital signs, nurses notes, and as rn a result, I will discharge patient. Counseling: I had a detailed discussion with the patient and/or guardian regarding the historical points, exam findings, and any diagnostic results supporting the discharge/admit diagnosis, the need for outpatient follow up, to return to the emergency department if symptoms worsen or persist or if there are any questions or concerns that arise at home. Response to treatment: the patient's symptoms have mildly improved after treatment, and as a result, I will discharge patient. ED course: Patient feels better, most likely gastritis exacerbation secondary to ibuprofen from dental pain. No indication for emergent admission. Recommend continuation of her antacid medication. Patient states that she needs to leave, will discharge in care of family member to drive her.. 03/16 13:39 Order name: IV Start; Complete Time: 14:11 rn Administered Medications: 13:39 CANCELLED (Duplicate Order): rocephin (ceftriaxone)1 grams IM once rn 14:19 Drug: NS 0.9% IV 1000 ml IV at 1000 ml once; to be given as a bolus over 60 minutes hb Route: IV; Rate: 1000 ml; Site: right antecubital; 15:15 Follow up: Response: No adverse reaction; IV Status: Completed infusion; IV Intake: hb 1000ml 14:19 Drug: Ondansetron IVP 4 mg IVP once; over 2 minutes Route: IVP; Site: right antecubital;hb 15:00 Follow up: Response: No adverse reaction hb 14:19 Drug: Famotidine IVP 20 mg IVP once; dilute with 10 mL 0.9% NaCl; give over 2 minutes hb Route: IVP; Site: right antecubital; 15:00 Follow up: Response: No adverse reaction hb 14:19 Drug: GI Cocktail without - (Maalox PO 30 ml, Lidocaine Mucous Membrane 2 % 15 hb ml) PO once Route: PO; 15:00 Follow up: Response: No adverse reaction hb 14:19 Drug: Rocephin IV 1 grams IV at calculated rate once; Given slow IV push per pharmacy hb instructions Route: IV; Rate: calculated rate; Site: right antecubital; 14:20 Follow up: IV Status: Completed infusion; IV Intake: 10ml hb 15:00 Follow up: Response: No adverse reaction hb 14:58 Drug: morphine IVP or IV 4 mg IVP once over 4 mins Route: IVP; Infused Over: 4 mins; hb Site: right antecubital; 15:16 Follow up: Response: No adverse reaction hb 14:58 Drug: Ondansetron IVP 4 mg IVP once; over 2 minutes Route: IVP; Site: right antecubital;hb 15:16 Follow up: Response: No adverse reaction hb Disposition Summary: 03/16/24 14:58 Discharge Ordered Notes: Location: Home rn Problem: an ongoing problem rn Symptoms: have improved rn Condition: Stable rn Diagnosis - Acute gastritis without bleeding rn Followup: rn - With: Private Physician - When: As needed - Reason: Recheck today's complaints, Re-evaluation by your physician Discharge Instructions: - Discharge Summary Sheet rn - Gastritis, Adult rn Forms: - Medication Reconciliation Form rn - Antibiotic manager of learning - Prescription Opioid Use rn - Patient Portal Instructions rn - Leadership Thank You Letter rn Signatures: Robert Wolf MD MD rn Baxter, Heather, RN RN Lenore Goodson RN RN db Corrections: (The following items were deleted from the chart) 13:39 13:39 Rocephin (cefTRIAXone) IM 1 grams IM once ordered. rn rn
[2024-03-16 17:00] VITALS: BP 137/102; TEMP 97.3; O2SAT 100
== END 2024-03-16 15:19 | disposition home or self-care (01) ==
LOC: ER 13:23
DX: K29.00 Acute gastritis without bleeding (principal); K08.89 Other specified disorders of teeth and supporting structures
CPT/HCPCS: 96361; 96375; 96374; 99284; J2405 ×2; J7030; J0696

== ENCOUNTER 2024-04-02 04:15 | Emergency (ER) | payer OTHER ==
--- OUTSIDE RECORDS SUMMARY | 2024-04-02 04:23 | XMS REPORT | Continuity of Care Document ---
Author Name Unknown Address [address] [facility] [address] [place] [address] [facility] [address] [facility] [place] [address] Care Team Providers Care [employer] Collision Estimator Name Role Phone JESS MUNSON Primary Care Physician JESS Palomares Attending Clinician Unavailab JESS Salguero Attending Clinician Unavailab Jess Salguero MD Attending Clinician [phone] ASTER LEE Attending Clinician Unavailable ASTER LEE Attending Clinician Unavailable Aster Lee NP Attending Clinician [phone] Eva Bryan MD Attending Clinician [phone] EVA BRYAN Attending Clinician Unavailable VANESSA LEYVA Attending Clinician Unavailable VANESSA LEYVA Attending Clinician Unavailable SHORTY ZAMBRANO Attending Clinician Unavailable SHORTY ZAMBRANO Attending Clinician Unavailable Shorty Draper Attending Clinician [phone] TIANNA MEI Attending Clinician Unavailable TIANNA MEI Attending Clinician Unavailable CARO BAUER Attending Clinician Unavailable CARO BAUER Attending Clinician Unavailable Caro Bauer MD Attending Clinician [phone] Nael BROWNE, Vincentvirginiamelania Attending Clinician [phone] Yisel Hart MD Attending Clinician +[phone] YISEL HART Attending Clinician Unavailable KONRAD ORDOÑEZ Attending Clinician Unavailab KONRAD Holguin Attending Clinician Unavailab merly Ordoñez INSIDE OUTSIDE SALES REPRESENTATIVE, Konrad Attending Clinician [phone] Tianna Young Attending Clinician [phone] ISAAC SHAY Attending Clinician Unavailable Vanessa Leyva MD Attending Clinician [phone] Jose De Jesus Medina MD Attending Clinician +[phone] JOSE DE JESUS MEDINA Attending Clinician Unavailable JOSE DE JESUS MEDINA Attending Clinician Unavailable 2, [facility] Attending Clinician Unavailable KELLY SIMMS Attending Clinician UnavailKELLY Ferrera Attending Clinician Unavailelliott Simms MD, Kelly Tolentino Attending Clinician [phone] TIFF ISABEL Attending Clinician Unavailable TIFF ISABEL Attending Clinician Unavailable Maame INSIDE OUTSIDE SALES REPRESENTATIVE, Tiff Attending Clinician [phone], [facility] Attending Clinician Unavailable BONITA TRIVEDI Attending Clinician Unavailab Bonita Hernandez DO Attending Clinician + [phone] Patrice VARGAS, Carlos Attending Clinician [phone] Doctor Unassigned, [place] Attending Clinician U NICOLE Aparicio Attending Clinician UnavailNICOLE Sellers Attending Clinician Unavaila KAMILA Barrios Attending Clinician Unavailable JACINTA VOSS Attending Clinician Unavailgloria Rivera, [facility] Temp Attending Clinician Henrietta vailable Meche Richard Attending Clinician + Jacinta Voss CNM Attending Clinician [phone] MECHE ROBERSON Attending Clinician Unavail able Rodrick Carlisle Attending Clinician Unava DREW Ren Attending Clinician Unavailable RODRICK PETE Attending Clinician Unavailab Wilver Weinstein MD Attending Clinician + [phone] LOVE DOWELL Attending Clinician UnavailLOVE Gonzalez Attending Clinician UnavailBRENDA Pedro Attending Clinician Unavailable Brenda Velásquez MD Attending Clinician [phone] Fernando Acosta Attending Clinician [phone] Ultrasound, Ang-Mfm Attending Clinician UnavailVinh Wong MD Attending Clinician [phone] VINH MONCADA Attending Clinician Unavailable VINH MONCADA Attending Clinician Unavailable Ivanna Rodriguez Attending Clinician [phone] Maddie Romeo MD Attending Clinician [phone] MADDIE ROMEO Attending Clinician Unavailable Lab, Dylan-Rmchp Attending Clinician Unavailable Chema STERLING Alayna S Attending Clinician [phone] ANGUS DWYER Attending Clinician Unavailable Angus Dwyer DO Attending Clinician +[phone] Abdullahi Gomez MD Attending Clinician +[phone] Foreign Calvillo Attending Clinician + [phone] Edith Terry MD Attending Clinician [phone] EDITH TERRY Attending Clinician Unavailable EDITH TERRY Attending Clinician Unavailable SHORTY ZAMBRANO Admitting Clinician Unavailable EVA BRYAN Admitting Clinician Unavailable Eva Bryan MD Admitting Clinician [phone] YISEL HART Admitting Clinician Unavailable Yisel Hart MD Admitting Clinician +[phone] KELLY SIMMS Admitting Clinician UnavailVANESSA Garza Admitting Clinician Unavailable Vanessa Leyva MD Admitting Clinician [phone] BRENDA VELÁSQUEZ Admitting Clinician Unavailable Brenda Velásquez MD Admitting Clinician +[phone] Edith Terry MD Admitting Clinician +[phone] EDITH TERRY Admitting Clinician Unavailable Payers Payer Name Policy Type Policy Number Effective Date Expirati on Date Source [facility] TAVIA [id number] 2021 00:00:00 [facility] [id number] 2021 00:00:00 Problems Condition Name Condition Details Condition Category Status Onset Date Resolution Date Last Treatment Date Treating Clinician Comments Source Gallkashe r sludge Gallbladde r sludge Disease Active 2023-02 00:00: 00 [facility] Hematemesi s with nausea Hematemesi s with nausea Disease Active 2023-02 0-03 00:00: 00 [facility] Coffee ground emesis Coffee ground emesis Disease Active 2023-02 0- 00:00: 00 [facility] Abdominal pain, epigastric Abdominal pain, epigastric Disease Active 2023-02 0- 00:00: 00 [facility] Papanicola ou smear of cervix with low grade squamous intraepith elial lesion (LGSIL) Papanicola ou smear of cervix with low grade squamous intraepith elial lesion (LGSIL) Disease Active 07-06 00:00: 00 Overview: Formattin g of this note might be different from the original. LGSIL in 2021 needs repeat pap smear in 2022. 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 on Disease Active 4-12 00:00: 00 [facility] Tetrahydro cannabinol (THC) use disorder, mild, abuse Tetrahydro cannabinol (THC) use disorder, mild, abuse Disease Resolve d 5-10 00:00: 00 2022-12-25 00:00:00 2022-12-25 13:59:24 [facility] Chronic hypertensi on with superimpos ed preeclamps ia Chronic hypertensi on with superimpos ed preeclamps ia Disease Resolve d 2021-02 0-08 00:00: 00 2022-01-20 00:00:00 2022-01-20 14:17:40 [facility] Supervisio n of high risk , antepartum Supervisio n of high risk , antepartum Disease Resolve d 5-05 00:00: 00 2022-01-20 00:00:00 2022-01-20 14:17:35 [facility] GBS (group B Streptococ cus carrier), +RV culture, 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 Will need ABX in labor. [facility] Single liveborn, born in hospital, delivered by vaginal delivery Single liveborn, born in hospital, delivered by vaginal delivery Disease Resolve d 2021-02 0-09 00:00: 00 2021-12-22 00:00:00 2021-12-22 07:58:27 [facility] Morbid obesity with body mass index of 40.0-49.9 Morbid obesity with body mass index of 40.0-49.9 Disease Resolve d 2021-02 0-08 00:00: 00 2021-12-22 00:00:00 2021-12-22 15:59:51 [facility] Severe pre-eclamp shena in third trimester Severe pre-eclamp shena in third trimester Disease Resolve d 2021-02 0-08 00:00: 00 2021-12-22 00:00:00 2021-12-22 07:58:22 [facility] Elevated blood pressure reading without diagnosis of hypertensi on Elevated blood pressure reading without diagnosis of hypertensi on Disease Resolve d 9-08 00:00: 00 2021-12-22 00:00:00 2021-12-22 07:58:07 [facility] Proteinuri a affecting in third trimester Proteinuri a affecting in third trimester Disease Resolve d 2022-0 9-08 00:00: 00 2021-12-22 00:00:00 2021-12-22 07:58:17 [facility] Intractabl e nausea and vomiting Intractabl e nausea and vomiting Disease Resolve d 2021-0 7-05 00:00: 00 2021-12-22 00:00:00 2021-12-22 07:58:09 [facility] Urinary tract infection without hematuria, site unspecifie d Urinary tract infection without hematuria, site unspecifie d Disease Resolve d 0 6-02 00:00: 00 2021-12-22 00:00:00 2021-12-22 07:57:57 [facility] Nausea and vomiting during Nausea and vomiting during Disease Resolve d 2021-0 5-10 00:00: 00 2021-12-22 00:00:00 2021-12-22 07:58:11 [facility] Nausea and vomiting during Nausea and vomiting during Disease Resolve d 0 5-10 00:00: 00 2021-12-22 00:00:00 2021-12-22 07:58:11 [facility] Primigravi da in second trimester Primigravi da in second trimester Disease Resolve d 2021-0 5-05 00:00: 00 2021-12-22 00:00:00 2021-12-22 07:58:15 [facility] Obesity in Obesity in Disease Resolve d 0 5-05 00:00: 00 2021-12-22 00:00:00 2021-12-22 07:58:13 [facility] Chronic hypertensi on affecting Chronic hypertensi on affecting Disease Resolve d 2021-0 4-24 00:00: 00 2021-12-22 00:00:00 2021-12-22 07:58:04 [facility] BMI 40.0-44.9, adult BMI 40.0-44.9, adult Disease Resolve d 2021-0 4-23 00:00: 00 2021-12-22 00:00:00 2021-12-22 15:59:13 [facility] 15 weeks gestation of 15 weeks gestation of Disease Resolve d 2021-0 4-12 00:00: 00 2021-12-22 00:00:00 2021-12-22 07:58:01 [facility] Hyperemesi s Hyperemesi s Disease Resolve d 2021-0 5-10 00:00: 00 2021-11-26 00:00:00 2021-11-26 09:09:11 [facility] Hyperbilir ubinemia Hyperbilir ubinemia Disease Resolve d 2021-0 4-25 00:00: 00 2021-11-26 00:00:00 2021-11-26 09:09:06 [facility] Hypomagnes emia Hypomagnes emia Disease Resolve d 2021-0 4-25 00:00: 00 2021-11-26 00:00:00 2021-11-26 09:09:05 [facility] Hypocalcem ia Hypocalcem ia Disease Resolve d 2021-0 4-25 00:00: 00 2021-11-26 00:00:00 2021-11-26 09:09:03 [facility] Hypokalemi a Hypokalemi a Disease Resolve d 2021-0 4-12 00:00: 00 2021-11-26 00:00:00 2021-11-26 09:09:30 [facility] Hyponatrem ia Hyponatrem ia Disease Resolve d 2021-0 4-12 00:00: 00 2021-11-26 00:00:00 2021-11-26 09:09:33 [facility] Tachycardi a Tachycardi a Disease Resolve d 2021-0 4-12 00:00: 00 2021-11-26 00:00:00 2021-11-26 09:09:30 [facility] Nausea and vomiting in prior to 22 weeks gestation Nausea and vomiting in prior to 22 weeks gestation Disease Resolve d 2021-0 4-12 00:00: 00 2021-11-26 00:00:00 2021-11-26 09:09:43 [facility] Nausea and vomiting in prior to 22 weeks gestation Nausea and vomiting in prior to 22 weeks gestation Disease Resolve d 05-31 00:00: 00 2021-11-26 00:00:00 2021-11-26 09:09:43 [facility] Allergies, Adverse Reactions, Alerts Allergy Name Allergy Type Status Severity Reaction(s) Onset Date Inactive Date Treating Clinician Comments Source Egg Propensi ty to adverse reaction s Active Nausea and/or Vomiting 06-29 00:00: 00 [facility] EGG DRUG INGREDI Active N/V 06-29 00:00: 00 [facility] Metoclop ramide Drug Allergy Active Extra pyramidal effects 05-31 00:00: 00 [facility] METOCLOP RAMIDE DRUG INGREDI Active Med EP Effects 05-31 00:00: 00 [facility] Social History Social Habit Start Date Stop Date Quantity Comments Source ASSERTION 2021-03-26 00:00:00 [facility] of tobacco use Current smoker [facility] Alcoholic beverage intake 2024-03-16 00:00:00 2024-03-16 00:00:00 Current drinker of alcohol (finding) [facility] Alcohol Comment 2023-11-26 00:00:00 2023-11-26 00:00:00 ocassional [facility] Tobacco use and exposure 2023-11-26 00:00:00 2023-11-26 00:00:00 Smokeless tobacco non-user [facility] History of Social function 2023-11-22 00:00:00 2023-11-22 00:00:00 [facility] Alcohol intake 2023-06-21 00:00:00 2023-06-21 00:00:00 Ex-drinker (finding) [facility] Exposure to SARS-CoV-2 (event) 2022-01-10 00:00:00 2022-01-20 14:04:00 Not sure [facility] Tobacco Comment 2021-09-15 00:00:00 2021-09-15 00:00:00 marijuana,no nicotine stopped for [facility] Sex assigned at 1995 00:00:00 1995 00:00:00 [facility] Smoking Status Start Date Stop Date Source Ex-smoker 2023-11-26 00:00:00 2023-11-26 00:00:00 [facility] Medications Ordered Medication Name Filled Medication Name Start Date Stop Date Current Medication? Ordering Clinician Indication Dosage Frequency Signature (SIG) Comments Components Source phentermine -topiramate (QSYMIA) 7.5-46 mg per capsule - 00:00: 00 Yes [id number] 104 1{capsu le} Take 1 capsule by mouth in the morning. Start 3.75mg qAM x 14 days; then increase to 7.5mg qAM. [facility] phentermine -topiramate (QSYMIA) 3.75-23 mg per capsule 03-31 00:00: 00 04-15 05:59 :00 Yes [id number] 104 1{capsu le} Take 1 capsule by mouth in the morning for 14 days. [facility] zolpidem 5 mg tablet 03-30 00:00: 00 Yes [id number] 5mg Take 1 tablet by mouth at bedtime as needed for Insomnia. [facility] pantoprazol e 40 mg EC tablet 03-28 00:00: 00 Yes [id number] 40mg Take 1 tablet by mouth in the morning. [facility] HYDROcodone -acetaminop hen (NORCO) 10-325 mg tablet 1 tablet 03-16 09:30: 00 03-16 08:29 :00 No 1{tbl} 1 tablet, Oral, ONCE, 1 dose, On 03/16/24 at 0330, Routine [facility] cephALEXin (KEFLEX) capsule 500 mg 03-16 08:30: 00 03-16 08:29 :00 No 500mg 500 mg, Oral, ONCE, 1 dose, On 03/16/24 at 0230, RACHAEL, Reason for Anti-Infec tive: Documented Infection, Documented Infection Site: HEENT, Duration of Therapy: Once (ED) [facility] cephALEXin 500 mg capsule 03-16 00:00: 00 03-24 05:59 :00 Yes [id number] 500mg Take 1 capsule by mouth 4 (four) times daily for 7 days. [facility] indomethaci n 50 mg capsule 03-16 00:00: 00 03-24 05:59 :00 Yes [id number] 50mg Take 1 capsule by mouth in the morning and 1 capsule at noon and 1 capsule in the evening. Take with meals. Do all this for 7 days. [facility] tirzepatide 2.5 mg/0.5 mL subcutaneou s injection pen 03-05 00:00: 00 Yes [id number] 104 2.5mg inject 2.5 mg under the skin weekly. Start 2.5mg qWeek x 4 Weeks, then increase to 5mg qWeek x 4 Weeks, then increase to 7.5mg qWeek x 4 Weeks, the increase to 10mg qWeek. [facility] tirzepatide , weight loss, 5 mg/0.5 mL subcutaneou s injection 03-05 00:00: 00 Yes [id number] 104 After 2.5mg qWeek x 4 Weeks, then increase to 5mg qWeek [facility] phentermine -topiramate 3.75-23 mg per capsule 03-05 00:00: 00 03-13 05:59 :00 Yes [id number] 104 1{capsu le} Take 1 capsule by mouth in the morning for 7 days. [facility] zolpidem 5 mg tablet 02-26 00:00: 00 03-28 00:00 :00 No [id number] 5mg Take 1 tablet by mouth at bedtime as needed for Insomnia. [facility] phentermine -topiramate (QSYMIA) 3.75-23 mg per capsule 02-26 00:00: 00 03-05 00:00 :00 No [id number] 104 1{capsu le} Take 1 capsule by mouth in the morning. [facility] ondansetron (ZOFRAN-ODT ) disintegrat ing tablet 4 mg 02-21 09:45: 00 02-21 08:46 :00 No 4mg 4 mg, Oral, ONCE, 1 dose, On Sun02/22/24 at 0345, RACHAEL [facility] cefTRIAXone (ROCEPHIN) 1,000 mg in water for injection, sterile 10 mL IV Push 02-21 08:30: 00 02-21 08:31 :00 No 1000mg 1,000 mg, Intravenou s, ONCE, 1 dose, On Sun02/22/24 at 0230, 10 mL, Reason for Anti-Infec tive: Empiric Therapy for Suspected Infection, Empiric Therapy Site: Urine, Duration of therapy: Once (ED) [facility] iopamidol (ISOVUE 370-500 mL) injection 80 mL 02-21 08:30: 00 02-21 08:30 :00 No [id number] 80mL 80 mL, Intravenou s, ONCE, 1 dose, On Sun02/22/24 at 0230, Routine [facility] maalox/diph enhydrAMINE :lidocaine2 %viscous 1:1:1: suspension (COMPOUNDED ) 02-21 07:45: 00 02-21 07:36 :00 No 15mL 15 mL, Oral, ONCE, 1 dose, On Sun02/22/24 at 0145, RACHAEL [facility] NaCl 0.9% (NS) bolus infusion 1,000 mL 02-21 06:45: 00 02-21 08:11 :00 No 1000mL at 999 mL/hr, 1,000 mL, IV Infusion, ONCE, 1 dose, On Sun02/22/24 at 0045, RACHAEL [facility] morpHINE (4 mg/mL) injection 4 mg 02-21 06:00: 00 02-21 06:13 :00 No 4mg 4 mg, Slow IV Push, ONCE, 1 dose, On Sun02/22/24 at 0000, STAT [facility] ondansetron (ZOFRAN (PF)) injection 8 mg 02-21 06:00: 00 02-21 06:17 :00 No 8mg 8 mg, Slow IV Push, ONCE, 1 dose, On Sun02/22/24 at 0000, Administer over 2-5 Minutes, 4 mL [facility] cefdinir 300 mg capsule - 00:00: 00 03-01 05:59 :00 No [id number] 300mg Take 1 capsule by mouth every 12 (twelve) hours for 7 days. [facility] ondansetron 4 mg disintegrat ing tablet 02-21 00:00: 00 02-26 00:00 :00 No [id number] 4mg Take 1 tablet by mouth every 8 (eight) hours as needed for Nausea and Vomiting (N/V). [facility] acetaminoph en (TYLENOL EXTRA STRENGTH) 500 mg tablet 2023-02 00:00: 00 02-26 00:00 :00 No [id number] 1000mg Take 2 tablets by mouth every 8 (eight) hours for 15 days. [facility] ibuprofen 800 mg tablet 2023-02 00:00: 00 02-26 00:00 :00 No [id number] 800mg Take 1 tablet by mouth every 8 (eight) hours for 15 days. [facility] HYDROcodone -acetaminop hen (NORCO 5) tablet 1 tablet 2023-02 18:30: 00 01-28 19:00 :00 No 1{tbl} 1 tablet, Oral, ONCE, 1 dose, On Sun01/29/24 at 1230, Routine, PACU [facility] lactated ringers IV infusion 1,000 mL 2023-02 18:30: 00 01-28 22:20 :16 No 1000mL at 50 mL/hr, 1,000 mL, IV Infusion, CONTINUOUS , Starting on Sun01/29/24 at 1230, Until Sun01/29/24 at 1620, Routine, PACU [facility] HYDROmorphO ne (DILAUDID) injection 0.2 mg 2023-02 18:19: 17 01-28 22:20 :16 No .2mg 0.2 mg, Slow IV Push, Q5MIN PRN, 10 doses, Starting on Sun01/29/24 at 1219, Until Sun01/29/24 at 1620, Routine, Pain (scale 7-10), PACU, Is this medication approved by a Faculty level provider? Yes, pricing/signage team member approving Restricted medication : RADHA EVANS [facility] FENTanyl (PF) (SUBLIMAZE) injection 25 mcg 2023-02 18:19: 17 01-28 22:20 :16 No 25ug 25 mcg, Slow IV Push, Q5MIN PRN, 4 doses, Starting on Sun01/29/24 at 1219, Until Sun01/29/24 at 1620, Routine, Pain Scale 4-6, PACU [facility] ondansetron (ZOFRAN (PF)) injection 4 mg 2023-02 18:19: 17 01-28 22:20 :16 No 4mg 4 mg, Slow IV Push, PRN, 1 dose, Starting on Sun01/29/24 at 1219, Until Sun01/29/24 at 1620, Administer over 2-5 Minutes, 2 mL, PACU [facility] bupivacaine -epinephrin e-pf (SENSORCAIN E W/EPINEPHRI NE) 0.25 %-1:200,000 30 mL, lidocaine 1% (PF) (XYLOCAINE) 30 mL 2023-02 16:57: 00 01-28 18:29 :17 No PRN, Starting on Sun01/29/24 at 1057, Intra-op [facility] sodium chloride 0.9 % irrigation solution 2023-02 16:56: 00 01-28 18:29 :17 No PRN, Starting on Sun01/29/24 at 1056, Until Sun01/29/24 at 1229, Intra-op [facility] acetaminoph en (TYLENOL) 325 mg tablet 2023-02 00:00: 02-05 05:59 :00 Yes [id number] 650mg Take 2 tablets by mouth every 6 (six) hours for 7 days. [facility] ibuprofen 800 mg tablet 2023-02 00:00: 00 02-05 05:59 :00 Yes [id number] 800mg Take 1 tablet by mouth every 6 (six) hours for 7 days. [facility] traMADoL 50 mg tablet 2023-02 00:00: 00 02-05 05:59 :00 Yes [id number] 50mg Take 1 tablet by mouth every 8 (eight) hours for 7 days. Indication s: acute pain, chronic pain [facility] HYDROcodone -acetaminop hen 5-325 mg tablet 2023-02 00:00: 00 02-05 05:59 :00 Yes [id number] 1{tbl} Take 1 tablet by mouth every 6 (six) hours as needed for Pain (scale 7-10) for up to 7 days. Indication s: acute pain [facility] phentermine 37.5 mg tablet 2023-02 00:00: 00 02-26 00:00 :00 No [id number] 104 37.5mg Take 1 tablet by mouth daily with breakfast. [facility] zolpidem 5 mg tablet 2023-02 00:00: 00 02-26 00:00 :00 No [id number] 5mg Take 1 tablet by mouth at bedtime as needed for Insomnia. [facility] ondansetron 8 mg tablet 2023-02 00:00: 00 02-26 00:00 :00 No [id number] 8mg Take 1 tablet by mouth every 8 (eight) hours as needed for Nausea and Vomiting (N/V). [facility] ketorolac (TORADOL) injection 30 mg 2023-02 11:30: 00 01-11 10:39 :00 No 30mg 30 mg, Slow IV Push, ONCE, 1 dose, On 01/12/24 at 0530, Routine [facility] fentanyl PF (SUBLIMAZE (PF)) injection 50 mcg 2023-02 11:15: 00 01-11 11:15 :00 No 50ug 50 mcg, Slow IV Push, ONCE, 1 dose, On 01/12/24 at 0515, Routine [facility] ondansetron (ZOFRAN (PF)) injection 4 mg 2023-02 10:30: 00 01-11 10:29 :00 No 4mg 4 mg, Slow IV Push, ONCE, 1 dose, On 01/12/24 at 0430, Administer over 2-5 Minutes, 2 mL [facility] fentanyl PF (SUBLIMAZE (PF)) injection 50 mcg 2023-02 10:30: 00 01-11 10:40 :00 No 50ug 50 mcg, Slow IV Push, ONCE, 1 dose, On 01/12/24 at 0430, RACHAEL [facility] ondansetron (ZOFRAN (PF)) injection 4 mg 2023-02 10:15: 00 01-11 10:07 :00 No 4mg 4 mg, Slow IV Push, ONCE, 1 dose, On 01/12/24 at 0415, Administer over 2-5 Minutes, 2 mL [facility] traMADoL (ULTRAM) 50 mg tablet 2023-02 00:00: 00 02-26 00:00 :00 No [id number] 50mg Take 1 tablet by mouth every 6 (six) hours as needed for Pain (scale 7-10). Indication s: acute pain [facility] dicyclomine 20 mg tablet 2023-02 00:00: 00 02-26 00:00 :00 No [id number] 20mg Take 1 tablet by mouth every 6 (six) hours as needed for Abdominal pain. [facility] ondansetron (ZOFRAN) 4 mg tablet 2023-02 00:00: 00 01-27 00:00 :00 No [id number] 4mg Take 1 tablet by mouth every 8 (eight) hours as needed for Nausea and Vomiting (N/V). [facility] ondansetron 8 mg tablet 2023-02 00:00: 00 01-24 00:00 :00 No [id number] 8mg Take 1 tablet by mouth every 8 (eight) hours as needed for Nausea and Vomiting (N/V). [facility] ondansetron 4 mg disintegrat ing tablet 2023-02 00:00: 00 01-10 00:00 :00 No [id number] 4mg Take 1 tablet by mouth every 8 (eight) hours as needed for Nausea and Vomiting (N/V). [facility] phentermine 37.5 mg tablet 2023-02 00:00: 00 01-24 00:00 :00 No [id number] 104 37.5mg Take 1 tablet by mouth daily with breakfast. [facility] zolpidem 5 mg tablet 2023-02 00:00: 00 01-24 00:00 :00 No [id number] 5mg Take 1 tablet by mouth at bedtime as needed for Insomnia. [facility] ondansetron 4 mg disintegrat ing tablet 2023-02 00:00: 00 01-09 00:00 :00 No [id number] 4mg Take 1 tablet by mouth every 8 (eight) hours as needed for Nausea and Vomiting (N/V). [facility] ondansetron 4 mg tablet 2023-02 00:00: 00 01-10 00:00 :00 No [id number] 4mg Take 1 tablet by mouth every 8 (eight) hours as needed for Nausea and Vomiting (N/V). [facility] [facility] TRAZODONE 100 mg tablet 2023-02 00:00: 00 02-26 00:00 :00 No [id number] 100mg TAKE 1 TABLET BY MOUTH EVERYDAY AT BEDTIME [facility] pantoprazol e 40 mg EC tablet 11-18 00:00: 00 03-28 00:00 :00 No [id number] 40mg Take 1 tablet by mouth in the morning. [facility] phentermine 37.5 mg tablet 11-18 00:0012-24 00:00 :00 No [id number] 104 37.5mg Take 1 tablet by mouth daily with breakfast. [facility] zolpidem 5 mg tablet 11-18 00:00: 00 12-24 00:00 :00 No [id number] 5mg Take 1 tablet by mouth at bedtime as needed for Insomnia. [facility] proMETHazin e (PHENERGAN) 12.5 mg in NS 50 mL IV piggyback (CNR) 11-17 15:30: 00 11-17 15:49 :00 No 12.5mg 12.5 mg, IV Piggyback, at 200 mL/hr Administer over 15 Minutes, ONCE, 1 dose, [facility] (4 mg/mL) injection 4 mg 11-17 15:30: 00 11-17 15:34 :00 No 4mg 4 mg, Slow IV Push, ONCE, 1 dose, On Sun11/18/23 at 1030, STAT [facility] ketorolac (TORADOL) injection 30 mg 11-17 15:00: 00 11-17 14:09 :00 No 30mg 30 mg, Slow IV Push, ONCE, 1 dose, [facility]/18/23 at 1000[facility] famotidine (PEPCID (PF)) injection 20 mg 11-17 14:15: 00 11-17 14:09 :00 No 20mg 20 mg, Slow IV Push, ONCE, 1 dose, [facility] 11/18/23 at 0915, [facility] iopamidol (ISOVUE 370-500 mL) injection 100 mL 11-17 13:30: 00 11-17 13:45 :00 No [id number] 100mL 100 mL, Intravenou s, ONCE, 1 dose, On Sun11/18/23 at 0845, Routine [facility] NaCl 0.9% (NS) IV infusion 1,000 mL 11-17 13:00: 00 11-17 15:15 :00 No 1000mL at 999 mL/hr, Intravenou s, ONCE, 1 dose, [facility] Sun11/18/23 at 0800, [facility] proMETHaz[facility] (PHENERGAN) 12.5 mg in NS 50 mL IV piggyback (CNR) 11-17 12:30: 00 11-17 13:33 :00 No 12.5mg 12.5 mg, IV Piggyback, at 200 mL/hr Administer over 15 Minutes, ONCE, 1 dose, On Sun11/18/23 at 0730, [facility] fentanyl PF (SUBLIMAZE (PF)) injection 100 mcg 11-17 11:15: 00 11-17 11:16 :00 No 100ug 100 mcg, Slow IV Push, ONCE, 1 dose, On Sun11/18/23 at 0615, Routine [facility] ondansetron (ZOFRAN (PF)) injection 8 mg 11-17 11:00: 00 11-17 11:10 :00 No 8mg 8 mg, Slow IV Push, ONCE, 1 dose, On Sun11/18/23 at 0600, [facility] sodium chloride (NS) injection 5 mL 11-17 10:51: 45 Yes 5mL 5 mL, Intravenou s, PRN, Starting on Sun11/18/23 at 0551, Until Discontinu ed, Routine, IV line flushing [facility] proMETHazin e 25 mg tablet 11-17 00:00: 00 02-26 00:00 :00 No [id number] 25mg Take 1 tablet by mouth every 6 (six) hours as needed for Nausea and Vomiting (N/V). [facility] traMADoL 50 mg tablet 11-17 00:00: 00 01-28 00:00 :00 No [id number] 50mg Take 1 tablet by mouth every 6 (six) hours as needed (pain). Indication s: acute pain [facility] zolpidem 5 mg tablet 11-17 00:00: 00 11-17 00:00 :00 No [id number] 5mg Take 1 tablet by mouth at bedtime as needed for Insomnia. [facility] KCL (KLOR-CON M20) tablet 20 mEq 11-07 19:30: 00 11-07 19:56 :00 No 20meq 20 mEq, Oral, ONCE, 1 dose, On [place] 11/08/23 at 1430, [facility] proMETHazin e (PHENERGAN) 12.5 mg in NS 50 mL IV piggyback (CNR) 11-07 17:45: 00 11-07 18:53 :00 No 12.5mg 12.5 mg, IV Piggyback, at 200 mL/hr Administer over 15 Minutes, ONCE, 1 dose, On [place] 11/08/23 at 1245, [facility] ondansetron (ZOFRAN (PF)) injection 4 mg 11-07 16:30: 00 11-07 16:38 :00 No 4mg 4 mg, Slow IV Push, ONCE, 1 dose, On [place] 11/08/23 at 1130, [facility] famotidine (PEPCID (PF)) injection 20 mg 11-07 16:30: 00 11-07 16:38 :00 No 20mg 20 mg, Slow IV Push, ONCE, 1 dose, On [place] 11/08/23 at 1130, [facility] NaCl 0.9% (NS) bolus infusion 1,000 mL 11-07 16:30: 00 11-07 19:53 :00 No 1000mL at 999 mL/hr, 1,000 mL, IV Infusion, ONCE, 1 dose, On [place] 11/08/23 at 1130, [facility] morpHINE (4 mg/mL) injection 4 mg 11-07 15:45: 00 11-07 18:39 :00 No 4mg 4 mg, Slow IV Push, ONCE, 1 dose, On [place] 11/08/23 at 1045, [facility] ondansetron 4 mg disintegrat ing tablet 9-19 00:00: 00 11-12 04:59 :00 No [id number] 4mg Take 1 tablet by mouth every 8 (eight) hours as needed for Nausea and Vomiting (N/V) for up to 4 days. [facility] zolpidem 5 mg tablet 10-18 00:00: 00 11-15 00:00 :00 No [id number] 5mg Take 1 tablet by mouth at bedtime as needed for Insomnia. [facility] ergocalcife rol, vitamin d2, (VITAMIN D2) 1,250 mcg (50,000 unit) capsule 10-15 00:00: 00 Yes [id number] 04406K Take 1 capsule by mouth weekly. [facility] phentermine 37.5 mg tablet 10-15 00:00: 00 11-18 00:00 :00 No [id number] 37.5mg Take 1 tablet by mouth daily with breakfast. [facility] ergocalcife rol, vitamin d2, (VITAMIN D2) 1,250 mcg (50,000 unit) capsule 10-02 00:00: 00 10-14 00:00 :00 No [id number] 96631U Take 1 capsule by mouth weekly. [facility] zolpidem 5 mg tablet 09-12 00:00: 00 10-15 00:00 :00 No [id number] 5mg Take 1 tablet by mouth at bedtime as needed for Insomnia. [facility] phentermine 37.5 mg tablet 725 00:00: 00 10-14 00:00 :00 No [id number] 37.5mg Take 1 tablet by mouth daily with breakfast. [facility] phentermine 37.5 mg tablet 617 00:00: 00 09-11 00:00 :00 No [id number] 37.5mg Take 1 tablet by mouth daily with breakfast. [facility] zolpidem 5 mg tablet 617 00:00: 00 09-11 00:00 :00 No [id number] 5mg Take 1 tablet by mouth at bedtime as needed for Insomnia. [facility] traZODone 100 mg tablet 0 6-05 00:00: 00 12-09 00:00 :00 No [id number] 100mg Take 1 tablet by mouth at bedtime. [facility] acetaminoph en (TYLENOL) tablet 650 mg 06-20 17:30: 00 06-20 17:25 :00 No 650mg 650 mg, Oral, ONCE, 1 dose, On [place] 06/21/23 at 1230, [facility] sulfamethox azole-trime thoprim 800-160 mg per tablet 06-20 00:00: 00 08-05 00:00 :00 No [id number] 1{tbl} Take 1 tablet by mouth every 12 (twelve) hours. [facility] phentermine 37.5 mg tablet 4-09 00:00: 00 08-05 00:00 :00 No [id number] 37.5mg Take 1 tablet by mouth daily with breakfast. [facility] traZODone 100 mg tablet 3-04 00:00: 00 07-24 00:00 :00 No [id number] 100mg Take 1 tablet by mouth at bedtime. [facility] phentermine 37.5 mg tablet 0 2-22 00:00: 00 05-28 00:00 :00 No [id number] 37.5mg Take 1 tablet by mouth daily with breakfast. [facility] zolpidem 5 mg tablet 0 2-15 00:00: 00 08-05 00:00 :00 No [id number] 5mg Take 1 tablet by mouth at bedtime as needed for Insomnia. [facility] phentermine 37.5 mg tablet 0 1-12 00:00: 00 04-11 00:00 :00 No [id number] 37.5mg Take 1 tablet by mouth daily with breakfast. [facility] zolpidem 5 mg tablet 02-20 00:00: 00 04-05 00:00 :00 No [id number] 5mg Take 1 tablet by mouth at bedtime as needed for Insomnia. [facility] phentermine 37.5 mg tablet 2022-02 00:00: 00 03-02 00:00 :00 No [id number] 37.5mg Take 1 tablet by mouth daily with breakfast. [facility] traZODone 100 mg tablet 2022-02 00:00: 00 04-22 00:00 :00 No [id number] 100mg Take 1 tablet by mouth at bedtime. [facility] phentermine 37.5 mg tablet 2022-02 00:00: 00 01-26 00:00 :00 No [id number] 37.5mg Take 1 tablet by mouth daily with breakfast. [facility] zolpidem 5 mg tablet 2022-02 00:00: 00 02-19 00:00 :00 No [id number] 5mg Take 1 tablet by mouth at bedtime as needed for Insomnia. [facility] TRAZODONE 50 mg tablet 2022-02 00:00: 00 01-24 00:00 :00 No [id number] 50mg TAKE 1 TABLET BY MOUTH EVERYDAY AT BEDTIME [facility] ramelteon 8 mg tablet 2022-02 00:00: 00 01-24 00:00 :00 No [id number] 8mg Take 1 tablet by mouth at bedtime. [facility] Doxepin 6 mg Tab 2022-02 00:00: 00 01-04 00:00 :00 No [id number] 6mg Take 6 mg by mouth at bedtime. [facility] ergocalcife rol, vitamin d2, (VITAMIN D2) 1,250 mcg (50,000 unit) capsule 2022-02 00:00: 00 09-30 00:00 :00 No [id number] Take 1 capsule by mouth weekly. [facility] traZODone 50 mg tablet 2022-02 1- 00:00: 00 01-16 00:00 :00 No [id number] 50mg Take 1 tablet by mouth at bedtime. [facility] medroxyPROG ESTERone (DEPO-PROVE RA) syringe 150 mg 2021-02 21:15: 00 01-20 20:41 :00 No [id number] 150mg [facility] NIFEdipine ER 30 mg tablet 2021-02- 00:00: 00 01-20 00:00 :00 No [id number] 30mg Take 1 tablet by mouth in the morning. [facility] NIFEdipine ER tablet 30 mg 2021-02 0- 04:00: 00 Yes 30mg 30 mg, Oral, DAILY, First dose on 11/27/21 at 2300, Until Discontinu ed, Routine [facility] vitamin w/FA tablet 2021-02 00:00: 00 01-20 00:00 :00 No [id number] 1{tbl} Take 1 tablet by mouth in the morning. [facility] docusate 100 mg capsule 2021-02 0- 00:00: 00 01-20 00:00 :00 No [id number] 200mg Take 2 capsules by mouth once daily as needed for Constipati on. [facility] ferrous sulfate 325 mg (65 mg iron) tablet 2021-02 0 00:00: 00 01-20 00:00 :00 No [id number] 325mg Take 1 tablet by mouth in the morning and 1 tablet in the evening. [facility] ibuprofen 600 mg tablet 2021-02 0-10 00:00: 00 01-20 00:00 :00 No [id number] 600mg Take 1 tablet by mouth every 6 (six) hours as needed (Pain). Take with food or milk. [facility] D5W 0.45% NaCl (1/2NS) IV infusion 1,000 mL 2021-02 0 19:38: 00 Yes 1000mL at 50 mL/hr, 1,000 mL, IV Infusion, CONTINUOUS , Starting on Sun 9/22 at 1445, Until Discontinu ed, Routine [facility] HYDROcodone -acetaminop hen (NORCO 5) 5-325 mg tablet 1 tablet 2021-02 12:41: 25 Yes 1{tbl} 1 tablet, Oral, Q6HPRN, Starting on 11/27/21 at 0741, Until Discontinu ed, Routine, Pain (scale 7-10) [facility] ibuprofen (IBU) tablet 600 mg 2021-02 12:41: 25 Yes 600mg 600 mg, Oral, Q6HPRN, Starting on 11/27/21 at 0741, Until Discontinu ed, Routine, Pain (scale 4-6) [facility] acetaminoph en (TYLENOL) tablet 650 mg 2021-02 12:41: 25 Yes 650mg 650 mg, Oral, Q6HPRN, Starting on 11/27/21 at 0741, Until Discontinu ed, Routine, Pain (scale 1-3) [facility] diphenhydrA MINE (BENADRYL) tablet 25 mg 2021-02 12:41: 25 Yes 25mg 25 mg, Oral, Q6HPRN, Starting on 11/27/21 at 0741, Until Discontinu ed, Routine, Sleep, Itching [facility] ondansetron (ZOFRAN (PF)) injection 4 mg 2021-02 12:41: 25 Yes 4mg 4 mg, Slow IV Push, Q8HPRN, Starting on 11/27/21 at 0741, Until Discontinu ed, Routine, Nausea and Vomiting (N/V) [facility] simethicone (GAS RELIEF (SIMETHICON E)) chewable tablet 160 mg 2021-02 12:41: 25 Yes 160mg 160 mg, Oral, PC+HSPRN, Starting on 11/27/21 at 0741, Until Discontinu ed, Routine, Gas [facility] docusate (COLACE) capsule 200 mg 2021-02 12:41: 25 Yes 200mg 200 mg, Oral, QDAILYPRN, Starting on 11/27/21 at 0741, Until Discontinu ed, Routine, Constipati on [facility] magnesium hydroxide (MILK OF MAGNESIA) 400 mg/5 mL suspension 30 mL 2021-02 12:41: 25 Yes 30mL 30 mL, Oral, QDAILYPRN, Starting on 11/27/21 at 0741, Until Discontinu ed, Routine, Constipati on [facility] benzocaine- menthol (DERMOPLAST ) 20-0.5 % topical spray 2021-02 12:41: 25 Yes Topical, PRN, Starting on 11/27/21 at 0741, Until Discontinu ed, Routine, Perineum discomfort [facility] calcium gluconate 100 mg/mL (10%) injection 1,000 mg 2021-02 12:40: 21 Yes 1000mg 1,000 mg, Slow IV Push, PRN - SEE INSTRUCTIO NS, Starting on 11/27/21 at 0740, Until Discontinu ed, Routine, magnesium toxicity [facility] magnesium sulfate 4 mEq/mL (50 %) injection 32.48 mEq 2021-02 12:40: 21 Yes 4g 32.48 mEq (4 g), Slow IV Push, PRN - SEE INSTRUCTIO NS, Starting on 11/27/21 at 0740, Until Discontinu ed, Routine, For seizure activity (patient not on magnesium sulfate) [facility] magnesium sulfate 4 mEq/mL (50 %) injection 16.24 mEq 2021-02 12:40: 21 Yes 2g 16.24 mEq (2 g), Slow IV Push, PRN - SEE INSTRUCTIO NS, 2 doses, Starting on 11/27/21 at 0740, Until Discontinu ed, Routine, For seizure activity (patient already on magnesium sulfate) [facility] labetaloL (NORMODYNE) injection 20 mg 2021-02 12:38: 39 Yes 20mg [Order 1 Start] Name: labetaloL (NORMODYNE ) injection 20 mg Signed Summary: 20 mg, Slow IV Push, PRN - SEE INSTRUCTIO NS, 1 dose, Starting on [place] 11/27/21 at 0738, Until Discontinu ed, Routine, [...] Hypertensi ve Emergency in [Order 4 End] [facility] oxytocin (PITOCIN) 30 units in NS 500 mL IV infusion 2021-02 02:10: 24 11-27 12:40 :54 No 2mU/min at 2-40 mL/hr, IV Infusion, TITRATE, Starting on 11/26/21 at 2110, Until 11/27/21 at 0740, Routine [facility] penicillin g pot in dextrose [...] s
Durat ion of therapy: 72 hours [facility] fentaNYL-ro pivacaine 2 mcg/mL-0.1 % (PF) in NS 200 mL epidural infusion RTU 2021-02 20:46: 00 11-27 13:52 :31 No Epidural, ONCE INTRA PROCEDURE, Starting on 11/26/21 at 1546, Until 11/27/21 at 0852, Routine, Intra-op [facility] lidocaine-e pinephrine (XYLOCAINE W/EPINEPHRI NE) 1.5 %-1:200,000 injection 2021-02 20:43: 00 Yes Epidural, ONCE INTRA PROCEDURE, Starting on 11/26/21 at 1543, Until Discontinu ed, Routine, Intra-op [facility] penicillin g potassium 5 Million Units in NaCl 0.9% (NS) 100 mL MINI-BAG 2021-02 18:15: 00 11-26 19:13 :00 No 510 5 Million Units, IV Piggyback, ONCE, 1 dose, On 11/26/21 at 1315, Administer over 60 Minutes, 100 mL
Reas on for Anti-Infec tive: Empiric Non-Surgic al Prophylaxi s
Durat ion of therapy: 72 hours [facility] NaCl 0.9% (NS) IV infusion 1,000 mL 2021-02 18:00: 00 11-27 12:40 :54 No 1000mL at 50 mL/hr, IV Infusion, CONTINUOUS , Starting on 11/26/21 at 1300, Until 11/27/21 at 0740, Routine [facility] oxytocin (PITOCIN) 30 units in NS 500 mL IV infusion 2021-02 14:31: 25 11-27 02:11 :24 No 2mU/min at 2-40 mL/hr, IV Infusion, TITRATE, Starting on 11/26/21 at 0931, Until 11/26/21 at 2111, Routine [facility] FENTanyl PF (SUBLIMAZE (PF)) injection 100 mcg 2021-02 13:50: 58 11-27 12:40 :54 No 100ug 100 mcg, Slow IV Push, Q1HPRN, Starting on 11/26/21 at 0850, Until 11/27/21 at 0740, Routine, Pain (scale 4-6), Pain (scale 7-10) [facility] misop[facility]ol (CYTOTEC) quarter-tab let 25 mcg 2021-02 13:45: 00 11-26 13:22 :00 No 25ug 25 mcg, Vaginal, ONCE, 1 dose, On 11/26/21 at 0845, Routine [facility] butalbital- acetaminoph en-caff (ESGIC) 50-325-40 mg tablet 1 tablet 2021-02 09:45: 00 11-26 08:57 :00 No 1{tbl} 1 tablet, Oral, ONCE NOW, 1 dose, On 11/26/21 at 0445, Routine [facility] magnesium sulfate in water for injection 20 gram/500 mL (4 %) IV infusion 2021-02 09:00: 00 Yes 2g/h 2 g/hr (50 mL/hr), IV Infusion, CONTINUOUS , Starting on 11/26/21 at 0400, Until Discontinu ed, Routine [facility] D5W 0.45% NaCl (1/2NS) IV infusion 1,000 mL 2021-02 09:00: 00 11-27 12:40 :54 No 1000mL at 75 mL/hr, 1,000 mL, IV Infusion, CONTINUOUS , Starting on 11/26/21 at 0400, Until 11/27/21 at 0740, Routine [facility] promethazin e 6.25 mg/5 mL solution 11-09 00:00: 00 11-28 00:00 :00 No [id number] 12.5mg Take 10 mL by mouth every 4 (four) hours as needed for Nausea and Vomiting (N/V). [facility] promethazin e 6.25 mg/5 mL solution 2022-0 8-30 00:00: 00 11-09 00:00 :00 No [id number] 12.5mg Take 10 mL by mouth every 4 (four) hours as needed for Nausea and Vomiting (N/V). [facility] promethazin e 6.25 mg/5 mL solution 8-11 00:00: 00 10-18 00:00 :00 No [id number] 12.5mg Take 10 mL by mouth every 4 (four) hours as needed for Nausea and Vomiting (N/V). [facility] promethazin e 6.25 mg/5 mL solution 6-23 00:00: 00 09-15 00:00 :00 No [id number] 12.5mg Take 10 mL by mouth every 4 (four) hours as needed for Nausea and Vomiting (N/V). [facility] proMETHazin e 25 mg tablet 07-17 00:00: 00 09-15 00:00 :00 No [id number] 25mg Take 1 tablet by mouth every 6 (six) hours as needed for Nausea and Vomiting (N/V). [facility] promethazin e 6.25 mg/5 mL solution 06 00:00: 00 06-29 00:00 :00 No [id number] 12.5mg Take 10 mL by mouth every 4 (four) hours as needed for Nausea and Vomiting (N/V). [facility] vit 33-iron-fol ic-dha (SELECT-OB + DHA) 29 mg iron-1 mg -250 mg combo pack 06-23 00:00: 00 07-17 00:00 :00 No [id number] 1{packe t} Take 1 Packet by mouth daily. [facility] proMETHazin e 25 mg suppository 06-22 00:00: 00 09-15 00:00 :00 No [id number] 25mg Insert 1 Suppositor y into rectum every 4 (four) hours as needed for Nausea and Vomiting (N/V). [facility] Immunizations Ordered Immunization Name Filled Immunization Name Date Status Comments Source HPV9 2022-12-25 00:00:00 Completed [facility] HPV9 2022-12-25 00:00:00 Completed [facility] HPV9 2022-12-25 00:00:00 Completed [facility] HPV9 2022-12-25 00:00:00 Completed [facility] HPV9 2022-12-25 00:00:00 Completed [facility] HPV9 2022-12-25 00:00:00 Completed [facility] HPV9 2022-12-25 00:00:00 Completed [facility] TDAP 2021-09-29 00:00:00 Completed [facility] TDAP 2021-09-29 00:00:00 Completed [facility] TDAP 2021-09-29 00:00:00 Completed [facility] TDAP 2021-09-29 00:00:00 Completed [facility] TDAP 2021-09-29 00:00:00 Completed [facility] TDAP 2021-09-29 00:00:00 Completed [facility] TDAP 2021-09-29 00:00:00 Completed [facility] TDAP 2021-09-29 00:00:00 Completed [facility] TDAP 2021-09-29 00:00:00 Completed [facility] TDAP 2021-09-29 00:00:00 Completed [facility] TDAP 2021-09-29 00:00:00 Completed [facility] TDAP 2021-09-29 00:00:00 Completed [facility] TDAP 2021-09-29 00:00:00 Completed [facility] TDAP 2021-09-29 00:00:00 Completed [facility] TDAP 2021-09-29 00:00:00 Completed [facility] TDAP 2021-09-29 00:00:00 Completed [facility] TDAP 2021-09-29 00:00:00 Completed [facility] TDAP 2021-09-29 00:00:00 Completed [facility] TDAP 2021-09-29 00:00:00 Completed [facility] TDAP 2021-09-29 00:00:00 Completed [facility] TDAP 2021-09-29 00:00:00 Completed [facility] TDAP 2021-09-29 00:00:00 Completed [facility] TDAP 2021-09-29 00:00:00 Completed [facility] TDAP 2021-09-29 00:00:00 Completed [facility] TDAP 2009-10-06 00:00:00 Completed HEPATITIS [...] Trivalent 1997-11-23 00:00:00 Completed TDAP Unknown Completed [facility] TDAP Unknown Completed [facility] TDAP Unknown Completed [facility] TDAP Unknown Completed [facility] TDAP Unknown Completed [facility] TDAP Unknown Completed [facility] DTaP, Unspecified Formulation Unknown Completed [facility] HEPATITIS A Unknown Completed [facility] Hep B, Adol or Pedi Dosage Unknown Completed [facility] HIB 4 Dose Schedule Unknown Completed [facility] Haemophilus influenzae type b vaccine, conjugate unspecified formulation Unknown Completed [facility] HPV Unknown Completed [facility] Meningococcal Polysaccharide (groups A, C, Y and W-135) conjugate vaccine (MCV4P) Unknown Completed [facility] MMR Unknown Completed [facility] IPV Unknown Completed [facility] Poliovirus, Live, Oral, Trivalent Unknown Completed [facility] HPV9 Unknown Completed [facility] HEPATITIS A Unknown Completed [facility] Haemophilus influenzae type b vaccine, conjugate unspecified formulation Unknown Completed [facility] HPV Unknown Completed [facility] Meningococcal Polysaccharide (groups A, C, Y and W-135) conjugate vaccine (MCV4P) Unknown Completed [facility] HPV9 Unknown Completed [facility] TDAP Unknown Completed [facility] DTaP, Unspecified Formulation Unknown Completed [facility] Hep B, Adol or Pedi Dosage Unknown Completed [facility] HIB 4 Dose Schedule Unknown Completed [facility] MMR Unknown Completed [facility] IPV Unknown Completed [facility] Poliovirus, Live, Oral, Trivalent Unknown Completed [facility] TDAP Unknown Completed [facility] DTaP, Unspecified Formulation Unknown Completed [facility] HEPATITIS A Unknown Completed [facility] Hep B, Adol or Pedi Dosage Unknown Completed [facility] HIB 4 Dose Schedule Unknown Completed [facility] Haemophilus influenzae type b vaccine, conjugate unspecified formulation Unknown Completed [facility] HPV Unknown Completed [facility] Meningococcal Polysaccharide (groups A, C, Y and W-135) conjugate vaccine (MCV4P) Unknown Completed [facility] MMR Unknown Completed [facility] IPV Unknown Completed [facility] Poliovirus, Live, Oral, Trivalent Unknown Completed [facility] HPV9 Unknown Completed [facility] TDAP Unknown Completed [facility] DTaP, Unspecified Formulation Unknown Completed [facility] HEPATITIS A Unknown Completed [facility] Hep B, Adol or Pedi Dosage Unknown Completed [facility] HIB 4 Dose Schedule Unknown Completed [facility] Haemophilus influenzae type b vaccine, conjugate unspecified formulation Unknown Completed [facility] HPV Unknown Completed [facility] Meningococcal Polysaccharide (groups A, C, Y and W-135) conjugate vaccine (MCV4P) Unknown Completed [facility] MMR Unknown Completed [facility] IPV Unknown Completed [facility] Poliovirus, Live, Oral, Trivalent Unknown Completed [facility] HPV9 Unknown Completed [facility] TDAP Unknown Completed [facility] DTaP, Unspecified Formulation Unknown Completed [facility] HEPATITIS A Unknown Completed [facility] Hep B, Adol or Pedi Dosage Unknown Completed [facility] HIB 4 Dose Schedule Unknown Completed [facility] Haemophilus influenzae type b vaccine, conjugate unspecified formulation Unknown Completed [facility] HPV Unknown Completed [facility] Meningococcal Polysaccharide (groups A, C, Y and W-135) conjugate vaccine (MCV4P) Unknown Completed [facility] MMR Unknown Completed [facility] IPV Unknown Completed [facility] Poliovirus, Live, Oral, Trivalent Unknown Completed [facility] HPV9 Unknown Completed [facility] TDAP Unknown Completed [facility] DTaP, Unspecified Formulation Unknown Completed [facility] HEPATITIS A Unknown Completed [facility] Hep B, Adol or Pedi Dosage Unknown Completed [facility] HIB 4 Dose Schedule Unknown Completed [facility] Haemophilus influenzae type b vaccine, conjugate unspecified formulation Unknown Completed [facility] HPV Unknown Completed [facility] Meningococcal Polysaccharide (groups A, C, Y and W-135) conjugate vaccine (MCV4P) Unknown Completed [facility] MMR Unknown Completed [facility] IPV Unknown Completed [facility] Poliovirus, Live, Oral, Trivalent Unknown Completed [facility] HPV9 Unknown Completed [facility] HEPATITIS A Unknown Completed [facility] Haemophilus influenzae type b vaccine, conjugate unspecified formulation Unknown Completed [facility] HPV Unknown Completed [facility] Meningococcal Polysaccharide (groups A, C, Y and W-135) conjugate vaccine (MCV4P) Unknown Completed [facility] HPV9 Unknown Completed [facility] TDAP Unknown Completed [facility] DTaP, Unspecified Formulation Unknown Completed [facility] Hep B, Adol or Pedi Dosage Unknown Completed [facility] HIB 4 Dose Schedule Unknown Completed [facility] MMR Unknown Completed [facility] IPV Unknown Completed [facility] Poliovirus, Live, Oral, Trivalent Unknown Completed [facility] TDAP Unknown Completed [facility] DTaP, Unspecified Formulation Unknown Completed [facility] HEPATITIS A Unknown Completed [facility] Hep B, Adol or Pedi Dosage Unknown Completed [facility] HIB 4 Dose Schedule Unknown Completed [facility] Haemophilus influenzae type b vaccine, conjugate unspecified formulation Unknown Completed [facility] HPV Unknown Completed [facility] Meningococcal Polysaccharide (groups A, C, Y and W-135) conjugate vaccine (MCV4P) Unknown Completed [facility] MMR Unknown Completed [facility] IPV Unknown Completed [facility] Poliovirus, Live, Oral, Trivalent Unknown Completed [facility] HPV9 Unknown Completed [facility] TDAP Unknown Completed [facility] DTaP, Unspecified Formulation Unknown Completed [facility] HEPATITIS A Unknown Completed [facility] Hep B, Adol or Pedi Dosage Unknown Completed [facility] HIB 4 Dose Schedule Unknown Completed [facility] Haemophilus influenzae type b vaccine, conjugate unspecified formulation Unknown Completed [facility] HPV Unknown Completed [facility] Meningococcal Polysaccharide (groups A, C, Y and W-135) conjugate vaccine (MCV4P) Unknown Completed [facility] MMR Unknown Completed [facility] IPV Unknown Completed [facility] Poliovirus, Live, Oral, Trivalent Unknown Completed [facility] HPV9 Unknown Completed [facility] TDAP Unknown Completed [facility] DTaP, Unspecified Formulation Unknown Completed [facility] HEPATITIS A Unknown Completed [facility] Hep B, Adol or Pedi Dosage Unknown Completed [facility] HIB 4 Dose Schedule Unknown Completed [facility] Haemophilus influenzae type b vaccine, conjugate unspecified formulation Unknown Completed [facility] HPV Unknown Completed [facility] Meningococcal Polysaccharide (groups A, C, Y and W-135) conjugate vaccine (MCV4P) Unknown Completed [facility] MMR Unknown Completed [facility] IPV Unknown Completed [facility] Poliovirus, Live, Oral, Trivalent Unknown Completed [facility] HPV9 Unknown Completed [facility] TDAP Unknown Completed [facility] DTaP, Unspecified Formulation Unknown Completed [facility] HEPATITIS A Unknown Completed [facility] Hep B, Adol or Pedi Dosage Unknown Completed [facility] HIB 4 Dose Schedule Unknown Completed [facility] Haemophilus influenzae type b vaccine, conjugate unspecified formulation Unknown Completed [facility] HPV Unknown Completed [facility] Meningococcal Polysaccharide (groups A, C, Y and W-135) conjugate vaccine (MCV4P) Unknown Completed [facility] MMR Unknown Completed [facility] IPV Unknown Completed [facility] Poliovirus, Live, Oral, Trivalent Unknown Completed [facility] HPV9 Unknown Completed [facility] HEPATITIS A Unknown Completed [facility] Haemophilus influenzae type b vaccine, conjugate unspecified formulation Unknown Completed [facility] HPV Unknown Completed [facility] Meningococcal Polysaccharide (groups A, C, Y and W-135) conjugate vaccine (MCV4P) Unknown Completed [facility] HPV9 Unknown Completed [facility] TDAP Unknown Completed [facility] DTaP, Unspecified Formulation Unknown Completed [facility] Hep B, Adol or Pedi Dosage Unknown Completed [facility] HIB 4 Dose Schedule Unknown Completed [facility] MMR Unknown Completed [facility] IPV Unknown Completed [facility] Poliovirus, Live, Oral, Trivalent Unknown Completed [facility] TDAP Unknown Completed [facility] DTaP, Unspecified Formulation Unknown Completed [facility] HEPATITIS A Unknown Completed [facility] Hep B, Adol or Pedi Dosage Unknown Completed [facility] HIB 4 Dose Schedule Unknown Completed [facility] Haemophilus influenzae type b vaccine, conjugate unspecified formulation Unknown Completed [facility] HPV Unknown Completed [facility] Meningococcal Polysaccharide (groups A, C, Y and W-135) conjugate vaccine (MCV4P) Unknown Completed [facility] MMR Unknown Completed [facility] IPV Unknown Completed [facility] Poliovirus, Live, Oral, Trivalent Unknown Completed [facility] HPV9 Unknown Completed [facility] TDAP Unknown Completed [facility] DTaP, Unspecified Formulation Unknown Completed [facility] HEPATITIS A Unknown Completed [facility] Hep B, Adol or Pedi Dosage Unknown Completed [facility] HIB 4 Dose Schedule Unknown Completed [facility] Haemophilus influenzae type b vaccine, conjugate unspecified formulation Unknown Completed [facility] HPV Unknown Completed [facility] Meningococcal Polysaccharide (groups A, C, Y and W-135) conjugate vaccine (MCV4P) Unknown Completed [facility] MMR Unknown Completed [facility] IPV Unknown Completed [facility] Poliovirus, Live, Oral, Trivalent Unknown Completed [facility] HPV9 Unknown Completed [facility] TDAP Unknown Completed [facility] DTaP, Unspecified Formulation Unknown Completed [facility] HEPATITIS A Unknown Completed [facility] Hep B, Adol or Pedi Dosage Unknown Completed [facility] HIB 4 Dose Schedule Unknown Completed [facility] Haemophilus influenzae type b vaccine, conjugate unspecified formulation Unknown Completed [facility] HPV Unknown Completed [facility] Meningococcal Polysaccharide (groups A, C, Y and W-135) conjugate vaccine (MCV4P) Unknown Completed [facility] MMR Unknown Completed [facility] IPV Unknown Completed [facility] Poliovirus, Live, Oral, Trivalent Unknown Completed [facility] HPV9 Unknown Completed [facility] TDAP Unknown Completed [facility] DTaP, Unspecified Formulation Unknown Completed [facility] HEPATITIS A Unknown Completed [facility] Hep B, Adol or Pedi Dosage Unknown Completed [facility] HIB 4 Dose Schedule Unknown Completed [facility] Haemophilus influenzae type b vaccine, conjugate unspecified formulation Unknown Completed [facility] HPV Unknown Completed [facility] Meningococcal Polysaccharide (groups A, C, Y and W-135) conjugate vaccine (MCV4P) Unknown Completed [facility] MMR Unknown Completed [facility] IPV Unknown Completed [facility] Poliovirus, Live, Oral, Trivalent Unknown Completed [facility] HPV9 Unknown Completed [facility] HEPATITIS A Unknown Completed [facility] Haemophilus influenzae type b vaccine, conjugate unspecified formulation Unknown Completed [facility] HPV Unknown Completed [facility] Meningococcal Polysaccharide (groups A, C, Y and W-135) conjugate vaccine (MCV4P) Unknown Completed [facility] HPV9 Unknown Completed [facility] TDAP Unknown Completed [facility] DTaP, Unspecified Formulation Unknown Completed [facility] HEPATITIS A Unknown Completed [facility] Hep B, Adol or Pedi Dosage Unknown Completed [facility] HIB 4 Dose Schedule Unknown Completed [facility] Haemophilus influenzae type b vaccine, conjugate unspecified formulation Unknown Completed [facility] HPV Unknown Completed [facility] Meningococcal Polysaccharide (groups A, C, Y and W-135) conjugate vaccine (MCV4P) Unknown Completed [facility] MMR Unknown Completed [facility] IPV Unknown Completed [facility] Poliovirus, Live, Oral, Trivalent Unknown Completed [facility] HPV9 Unknown Completed [facility] TDAP Unknown Completed [facility] DTaP, Unspecified Formulation Unknown Completed [facility] HEPATITIS A Unknown Completed [facility] Hep B, Adol or Pedi Dosage Unknown Completed [facility] HIB 4 Dose Schedule Unknown Completed [facility] Haemophilus influenzae type b vaccine, conjugate unspecified formulation Unknown Completed [facility] HPV Unknown Completed [facility] Meningococcal Polysaccharide (groups A, C, Y and W-135) conjugate vaccine (MCV4P) Unknown Completed [facility] MMR Unknown Completed [facility] IPV Unknown Completed [facility] Poliovirus, Live, Oral, Trivalent Unknown Completed [facility] HPV9 Unknown Completed [facility] TDAP Unknown Completed [facility] DTaP, Unspecified Formulation Unknown Completed [facility] HEPATITIS A Unknown Completed [facility] Hep B, Adol or Pedi Dosage Unknown Completed [facility] HIB 4 Dose Schedule Unknown Completed [facility] Haemophilus influenzae type b vaccine, conjugate unspecified formulation Unknown Completed [facility] HPV Unknown Completed [facility] Meningococcal Polysaccharide (groups A, C, Y and W-135) conjugate vaccine (MCV4P) Unknown Completed [facility] MMR Unknown Completed [facility] IPV Unknown Completed [facility] Poliovirus, Live, Oral, Trivalent Unknown Completed [facility] HPV9 Unknown Completed [facility] TDAP Unknown Completed [facility] DTaP, Unspecified Formulation Unknown Completed [facility] HEPATITIS A Unknown Completed [facility] Hep B, Adol or Pedi Dosage Unknown Completed [facility] HIB 4 Dose Schedule Unknown Completed [facility] Haemophilus influenzae type b vaccine, conjugate unspecified formulation Unknown Completed [facility] HPV Unknown Completed [facility] Meningococcal Polysaccharide (groups A, C, Y and W-135) conjugate vaccine (MCV4P) Unknown Completed [facility] MMR Unknown Completed [facility] IPV Unknown Completed [facility] Poliovirus, Live, Oral, Trivalent Unknown Completed [facility] HPV9 Unknown Completed [facility] TDAP Unknown Completed [facility] DTaP, Unspecified Formulation Unknown Completed [facility] Hep B, Adol or Pedi Dosage Unknown Completed [facility] HIB 4 Dose Schedule Unknown Completed [facility] MMR Unknown Completed [facility] IPV Unknown Completed [facility] Poliovirus, Live, Oral, Trivalent Unknown Completed [facility] TDAP Unknown Completed [facility] DTaP, Unspecified Formulation Unknown Completed [facility] HEPATITIS A Unknown Completed [facility] Hep B, Adol or Pedi Dosage Unknown Completed [facility] HIB 4 Dose Schedule Unknown Completed [facility] Haemophilus influenzae type b vaccine, conjugate unspecified formulation Unknown Completed [facility] HPV Unknown Completed [facility] Meningococcal Polysaccharide (groups A, C, Y and W-135) conjugate vaccine (MCV4P) Unknown Completed [facility] MMR Unknown Completed [facility] IPV Unknown Completed [facility] Poliovirus, Live, Oral, Trivalent Unknown Completed [facility] HPV9 Unknown Completed [facility] TDAP Unknown Completed [facility] DTaP, Unspecified Formulation Unknown Completed [facility] HEPATITIS A Unknown Completed [facility] Hep B, Adol or Pedi Dosage Unknown Completed [facility] HIB 4 Dose Schedule Unknown Completed [facility] Haemophilus influenzae type b vaccine, conjugate unspecified formulation Unknown Completed [facility] HPV Unknown Completed [facility] Meningococcal Polysaccharide (groups A, C, Y and W-135) conjugate vaccine (MCV4P) Unknown Completed [facility] MMR Unknown Completed [facility] IPV Unknown Completed [facility] Poliovirus, Live, Oral, Trivalent Unknown Completed [facility] HPV9 Unknown Completed [facility] TDAP Unknown Completed [facility] DTaP, Unspecified Formulation Unknown Completed [facility] HEPATITIS A Unknown Completed [facility] Hep B, Adol or Pedi Dosage Unknown Completed [facility] HIB 4 Dose Schedule Unknown Completed [facility] Haemophilus influenzae type b vaccine, conjugate unspecified formulation Unknown Completed [facility] HPV Unknown Completed [facility] Meningococcal Polysaccharide (groups A, C, Y and W-135) conjugate vaccine (MCV4P) Unknown Completed [facility] MMR Unknown Completed [facility] IPV Unknown Completed [facility] Poliovirus, Live, Oral, Trivalent Unknown Completed [facility] HPV9 Unknown Completed [facility] TDAP Unknown Completed [facility] DTaP, Unspecified Formulation Unknown Completed [facility] HEPATITIS A Unknown Completed [facility] Hep B, Adol or Pedi Dosage Unknown Completed [facility] HIB 4 Dose Schedule Unknown Completed [facility] Haemophilus influenzae type b vaccine, conjugate unspecified formulation Unknown Completed [facility] HPV Unknown Completed [facility] Meningococcal Polysaccharide (groups A, C, Y and W-135) conjugate vaccine (MCV4P) Unknown Completed [facility] MMR Unknown Completed [facility] IPV Unknown Completed [facility] Poliovirus, Live, Oral, Trivalent Unknown Completed [facility] HPV9 Unknown Completed [facility] TDAP Unknown Completed [facility] DTaP, Unspecified Formulation Unknown Completed [facility] HEPATITIS A Unknown Completed [facility] Hep B, Adol or Pedi Dosage Unknown Completed [facility] HIB 4 Dose Schedule Unknown Completed [facility] Haemophilus influenzae type b vaccine, conjugate unspecified formulation Unknown Completed [facility] HPV Unknown Completed [facility] Meningococcal Polysaccharide (groups A, C, Y and W-135) conjugate vaccine (MCV4P) Unknown Completed [facility] MMR Unknown Completed [facility] IPV Unknown Completed [facility] Poliovirus, Live, Oral, Trivalent Unknown Completed [facility] HPV9 Unknown Completed [facility] TDAP Unknown Completed [facility] DTaP, Unspecified Formulation Unknown Completed [facility] HEPATITIS A Unknown Completed [facility] Hep B, Adol or Pedi Dosage Unknown Completed [facility] HIB 4 Dose Schedule Unknown Completed [facility] Haemophilus influenzae type b vaccine, conjugate unspecified formulation Unknown Completed [facility] HPV Unknown Completed [facility] Meningococcal Polysaccharide (groups A, C, Y and W-135) conjugate vaccine (MCV4P) Unknown Completed [facility] MMR Unknown Completed [facility] IPV Unknown Completed [facility] Poliovirus, Live, Oral, Trivalent Unknown Completed [facility] HPV9 Unknown Completed [facility] TDAP Unknown Completed [facility] DTaP, Unspecified Formulation Unknown Completed [facility] HEPATITIS A Unknown Completed [facility] Hep B, Adol or Pedi Dosage Unknown Completed [facility] HIB 4 Dose Schedule Unknown Completed [facility] Haemophilus influenzae type b vaccine, conjugate unspecified formulation Unknown Completed [facility] HPV Unknown Completed [facility] Meningococcal Polysaccharide (groups A, C, Y and W-135) conjugate vaccine (MCV4P) Unknown Completed [facility] MMR Unknown Completed [facility] IPV Unknown Completed [facility] Poliovirus, Live, Oral, Trivalent Unknown Completed [facility] HPV9 Unknown Completed [facility] TDAP Unknown Completed [facility] DTaP, Unspecified Formulation Unknown Completed [facility] HEPATITIS A Unknown [facility] Hep B, Adol or Pedi Dosage Unknown Completed [facility] HIB 4 Dose Schedule Unknown Completed [facility] Haemophilus influenzae type b vaccine, conjugate unspecified formulation Unknown Completed [facility] HPV Unknown Completed [facility] Meningococcal Polysaccharide (groups A, C, Y and W-135) conjugate vaccine (MCV4P) Unknown Completed [facility] MMR Unknown Completed [facility] IPV Unknown Completed [facility] Poliovirus, Live, Oral, Trivalent Unknown Completed [facility] HPV9 Unknown Completed [facility] HEPATITIS A Unknown Completed [facility] Haemophilus influenzae type b vaccine, conjugate unspecified formulation Unknown Completed [facility] HPV Unknown Completed [facility] Meningococcal Polysaccharide (groups A, C, Y and W-135) conjugate vaccine (MCV4P) Unknown Completed [facility] HPV9 Unknown Completed [facility] TDAP Unknown Completed [facility] DTaP, Unspecified Formulation Unknown Completed [facility] Hep B, Adol or Pedi Dosage Unknown Completed [facility] HIB 4 Dose Schedule Unknown Completed [facility] MMR Unknown Completed [facility] IPV Unknown Completed [facility] Poliovirus, Live, Oral, Trivalent Unknown Completed [facility] HEPATITIS A Unknown Completed [facility] Haemophilus influenzae type b vaccine, conjugate unspecified formulation Unknown Completed [facility] HPV Unknown Completed [facility] Meningococcal Polysaccharide (groups A, C, Y and W-135) conjugate vaccine (MCV4P) Unknown Completed [facility] HPV9 Unknown Completed [facility] TDAP Unknown Completed [facility] DTaP, Unspecified Formulation Unknown Completed [facility] Hep B, Adol or Pedi Dosage Unknown Completed [facility] HIB 4 Dose Schedule Unknown Completed [facility] MMR Unknown Completed [facility] IPV Unknown Completed [facility] Poliovirus, Live, Oral, Trivalent Unknown Completed [facility] HEPATITIS A Unknown Completed [facility] Haemophilus influenzae type b vaccine, conjugate unspecified formulation Unknown Completed [facility] HPV [facility] [facility] Meningococcal Polysaccharide (groups A, C, Y and W-135) conjugate vaccine (MCV4P) Unknown Completed [facility] HPV9 Unknown Completed [facility] TDAP Unknown Completed [facility] DTaP, Unspecified Formulation Unknown Completed [facility] Hep B, Adol or Pedi Dosage Unknown Completed [facility] HIB 4 Dose Schedule Unknown Completed [facility] MMR Unknown Completed [facility] IPV Unknown Completed [facility] Poliovirus, Live, Oral, Trivalent Unknown Completed [facility] TDAP Unknown Completed [facility] DTaP, Unspecified Formulation Unknown Completed [facility] HEPATITIS A Unknown Completed [facility] Hep B, Adol or Pedi Dosage Unknown Completed [facility] HIB 4 Dose Schedule Unknown Completed [facility] Haemophilus influenzae type b vaccine, conjugate unspecified formulation Unknown Completed [facility] HPV Unknown Completed [facility] Meningococcal Polysaccharide (groups A, C, Y and W-135) conjugate vaccine (MCV4P) Unknown Completed [facility] MMR Unknown Completed [facility] IPV Unknown Completed [facility] Poliovirus, Live, Oral, Trivalent Unknown Completed [facility] HPV9 Unknown Completed [facility] TDAP Unknown Completed [facility] DTaP, Unspecified Formulation Unknown Completed [facility] HEPATITIS A Unknown Completed [facility] Hep B, Adol or Pedi Dosage Unknown Completed [facility] HIB 4 Dose Schedule Unknown Completed [facility] Haemophilus influenzae type b vaccine, conjugate unspecified formulation Unknown Completed [facility] HPV Unknown Completed [facility] Meningococcal Polysaccharide (groups A, C, Y and W-135) conjugate vaccine (MCV4P) Unknown Completed [facility] MMR Unknown Completed [facility] IPV Unknown Completed [facility] Poliovirus, Live, Oral, Trivalent Unknown Completed [facility] HPV9 Unknown Completed [facility] TDAP Unknown Completed [facility] DTaP, Unspecified Formulation Unknown Completed [facility] HEPATITIS A Unknown Completed [facility] Hep B, Adol or Pedi Dosage Unknown Completed [facility] HIB 4 Dose Schedule Unknown Completed [facility] Haemophilus influenzae type b vaccine, conjugate unspecified formulation Unknown Completed [facility] HPV Unknown Completed [facility] Meningococcal Polysaccharide (groups A, C, Y and W-135) conjugate vaccine (MCV4P) Unknown Completed [facility] MMR Unknown Completed [facility] IPV Unknown Completed [facility] Poliovirus, Live, Oral, Trivalent Unknown Completed [facility] HPV9 Unknown Completed [facility] TDAP Unknown Completed [facility] DTaP, Unspecified Formulation Unknown Completed [facility] HEPATITIS A Unknown Completed [facility] Hep B, Adol or Pedi Dosage Unknown Completed [facility] HIB 4 Dose Schedule Unknown Completed [facility] Haemophilus influenzae type b vaccine, conjugate unspecified formulation Unknown Completed [facility] HPV Unknown Completed [facility] Meningococcal Polysaccharide (groups A, C, Y and W-135) conjugate vaccine (MCV4P) Unknown Completed [facility] MMR Unknown Completed [facility] IPV Unknown Completed [facility] Poliovirus, Live, Oral, Trivalent Unknown Completed [facility] HPV9 Unknown Completed [facility] TDAP Unknown Completed [facility] DTaP, Unspecified Formulation Unknown Completed [facility] HEPATITIS A Unknown Completed [facility] Hep B, Adol or Pedi Dosage Unknown Completed [facility] HIB 4 Dose Schedule Unknown Completed [facility] Haemophilus influenzae type b vaccine, conjugate unspecified formulation Unknown Completed [facility] HPV Unknown Completed [facility] Meningococcal Polysaccharide (groups A, C, Y and W-135) conjugate vaccine (MCV4P) Unknown Completed [facility] MMR Unknown Completed [facility] IPV Unknown Completed [facility] Poliovirus, Live, Oral, Trivalent Unknown Completed [facility] HPV9 Unknown Completed [facility] Vital Signs Vital Name Observation Time Observation Value Comments S ource Systolic blood pressure 2024-03-16 08:17:00 152 mm[Hg] [facility] Diastolic blood pressure 2024-03-16 08:17:00 114 mm[Hg] [facility] Heart rate 2024-03-16 08:17:00 114 /min [facility] Body temperature 2024-03-16 08:17:00 36.78 [address]va [facility] Respiratory rate 2024-03-16 08:17:00 20 /min [facility] Body height 2024-03-16 08:17:[address] [facility] Body weight 2024-03-16 08:17:[address] [facility] BMI 2024-03-16 08:17:00 38.44 kg/m2 [facility] Oxygen saturation in Arterial blood by Pulse oximetry 2024-03-16 08:17:00 100 /min [facility] Systolic blood pressure 2024-02-27 16:52:00 118 mm[Hg] [facility] Diastolic blood pressure 2024-02-27 16:52:00 82 mm[Hg] [facility] Heart rate 2024-02-27 16:52:00 113 /min [facility] Body temperature 2024-02-27 16:52:00 36.28 Ava [facility] Respiratory rate 2024-02-27 16:52:00 18 /min [facility] Body height 2024-02-27 16:52:[address] [facility] Body weight 2024-02-27 16:52:[address] [facility] BMI 2024-02-27 16:52:00 42.33 kg/m2 [facility] Oxygen saturation in Arterial blood by Pulse oximetry 2024-02-27 16:52:00 99 /min [facility] Systolic blood pressure 2024-02-22 08:00:00 172 mm[Hg] [facility] Diastolic blood pressure 2024-02-22 08:00:00 90 mm[Hg] [facility] Heart rate 2024-02-22 08:00:00 89 /min [facility] Body temperature 2024-02-22 08:00:00 36.89 Ava [facility] Respiratory rate 2024-02-22 08:00:00 20 /min [facility] Oxygen saturation in Arterial blood by Pulse oximetry 2024-02-22 08:00:00 100 /min [facility] Body height 2024-02-22 05:52:[address] [facility] Body weight 2024-02-22 05:52:00 108.863 kg [facility] BMI 2024-02-22 05:52:00 39.94 kg/m2 [facility] Systolic blood pressure 2024-01-29 19:50:00 125 mm[Hg] [facility] Diastolic blood pressure 2024-01-29 19:50:00 85 mm[Hg] [facility] Heart rate 2024-01-29 19:50:00 103 /min [facility] Respiratory rate 2024-01-29 19:50:00 15 /min [facility] Oxygen saturation in Arterial blood by Pulse oximetry 2024-01-29 19:50:00 96 /min [facility] Body temperature 2024-01-29 18:30:00 36.33 Ava [facility] Body height 2024-01-21 21:15:[address] [facility] Body weight 2024-01-21 21:15:[address] [facility] BMI 2024-01-21 21:15:00 44.93 kg/m2 [facility] Systolic blood pressure 2024-01-29 18:35:00 127 mm[Hg] [facility] Diastolic blood pressure 2024-01-29 18:35:00 82 mm[Hg] [facility] Heart rate 2024-01-29 18:35:00 114 /min [facility] Respiratory rate 2024-01-29 18:35:00 18 /min [facility] Oxygen saturation in Arterial blood by Pulse oximetry 2024-01-29 18:35:00 100 /min [facility] Body temperature 2024-01-29 18:30:00 36.33 Ava [facility] Body height 2024-01-21 21:15:00 165.1 cm [facility] Body weight 2024-01-21 21:15:[address] [facility] BMI 2024-01-21 21:15:00 44.93 kg/m2 [facility] Systolic blood pressure 2024-01-12 11:25:00 156 mm[Hg] [facility] Diastolic blood pressure 2024-01-12 11:25:00 110 mm[Hg] [facility] Respiratory rate 2024-01-12 11:25:00 12 /min [facility] Oxygen saturation in Arterial blood by Pulse oximetry 2024-01-12 11:25:00 97 /min [facility] Heart rate 2024-01-12 11:15:00 88 /min [facility] Body temperature 2024-01-12 09:59:00 36.5 Ava [facility] Body height 2024-01-12 09:59:00 165.1 cm [facility] Body weight 2024-01-12 09:59:[address] [facility] BMI 2024-01-12 09:59:00 44.93 kg/m2 [facility] Systolic blood pressure 2024-01-07 17:05:00 136 mm[Hg] [facility] Diastolic blood pressure 2024-01-07 17:05:00 99 mm[Hg] [facility] Heart rate 2024-01-07 17:05:00 109 /min [facility] Oxygen saturation in Arterial blood by Pulse oximetry 2024-01-07 17:05:00 100 /min [facility] Body temperature 2024-01-07 17:02:00 36.39 Ava [facility] Respiratory rate 2024-01-07 17:02:00 18 /min [facility] Body height 2024-01-07 17:02:[address] [facility] Body weight 2024-01-07 17:02:[address] [facility] BMI 2024-01-07 17:02:00 44.93 kg/m2 [facility] Systolic blood pressure 2024-01-03 17:27:00 111 mm[Hg] [facility] Diastolic blood pressure 2024-01-03 17:27:00 77 mm[Hg] [facility] Heart rate 2024-01-03 17:27:00 99 /min [facility] Body temperature 2024-01-03 17:27:00 36.5 Ava [facility] Respiratory rate 2024-01-03 17:27:00 18 /min [facility] Body height 2024-01-03 17:27:[address] [facility] Body weight 2024-01-03 17:27:[address] [facility] BMI 2024-01-03 17:27:00 44.10 kg/m2 [facility] Oxygen saturation in Arterial blood by Pulse oximetry 2024-01-03 17:27:00 99 /min [facility] Systolic blood pressure 2023-12-24 17:35:00 118 mm[Hg] [facility] Diastolic blood pressure 2023-12-24 17:35:00 80 mm[Hg] [facility] Heart rate 2023-12-24 17:35:00 90 /min [facility] Respiratory rate 2023-12-24 17:35:00 15 /min [facility] Oxygen saturation in Arterial blood by Pulse oximetry 2023-12-24 17:35:00 96 /min [facility] Body temperature 2023-12-24 17:05:00 36 Ava [facility] Body height 2023-12-24 16:37:[address] [facility] Body weight 2023-12-24 16:37:[address] [facility] BMI 2023-12-24 16:37:00 44.81 kg/m2 [facility] Systolic blood pressure 2023-12-24 17:05:00 100 mm[Hg] [facility] Diastolic blood pressure 2023-12-24 17:05:00 56 mm[Hg] [facility] Heart rate 2023-12-24 17:05:00 89 [facility] Body temperature 2023-12-24 17:05:00 36 Ava [facility] Respiratory rate 2023-12-24 17:05:00 16 /min [facility] Oxygen saturation in Arterial blood by Pulse oximetry 2023-12-24 17:05:00 94 /min [facility] Body height 2023-12-24 16:37:[address] [facility] Body weight 2023-12-24 16:37:[address] [facility] BMI 2023-12-24 16:37:00 44.81 kg/m2 [facility] Systolic blood pressure 2023-11-27 19:10:00 111 mm[Hg] [facility] Diastolic blood pressure 2023-11-27 19:10:00 76 mm[Hg] [facility] Heart rate 2023-11-27 19:10:00 111 /min [facility] 2023-11-27 19:10:00 18 /min [facility] Body height 2023-11-27 19:10:00 [facility].1 cm [facility] Body weight 2023-11-27 19:10:00 124.286 kg [facility] BMI 2023-11-27 19:10:00 45.60 kg/m2 [facility] Systolic blood pressure 2023-11-26 20:40:00 112 mm[Hg] [facility] Diastolic blood pressure 2023-11-26 20:40:00 74 mm[Hg] [facility] Heart rate 2023-11-26 20:40:00 103 /min [facility] Body temperature 2023-11-26 20:40:00 36.39 Ava [facility] Body height 2023-11-26 20:40:00 165.1 cm [facility] Body weight 2023-11-26 20:40:00 123.923 kg [facility] BMI 2023-11-26 20:40:00 45.46 kg/m2 [facility] Systolic blood pressure 2023-11-22 18:07:00 134 mm[Hg] [facility] Diastolic blood pressure 2023-11-22 18:07:00 89 mm[Hg] [facility] Heart rate 2023-11-22 18:07:00 126 /min [facility] Body temperature 2023-11-22 18:07:00 36.28 Ava [facility] Respiratory rate 2023-11-22 18:07:00 18 /min [facility] Body height 2023-11-22 18:07:00 165.1 cm [facility] Body weight 2023-11-22 18:07:[address] [facility] BMI 2023-11-22 18:07:00 45.90 kg/m2 [facility] Oxygen saturation in Arterial blood by Pulse oximetry 2023-11-22 18:07:00 98 /min [facility] Systolic blood pressure 2023-11-19 14:38:00 127 mm[Hg] [facility] Diastolic blood pressure 2023-11-19 14:38:00 86 mm[Hg] [facility] Heart rate 2023-11-19 14:38:00 107 /min [facility] Body temperature 2023-11-19 14:38:00 36.33 Ava [facility] Respiratory rate 2023-11-19 14:38:00 18 /min [facility] Body height 2023-11-19 14:38:[address] [facility] Body weight 2023-11-19 14:38:[address] [facility] BMI 2023-11-19 14:38:00 45.40 kg/m2 [facility] Oxygen saturation in Arterial blood by Pulse oximetry 2023-11-19 14:38:00 98 /min [facility] Systolic blood pressure 2023-11-18 16:30:00 156 mm[Hg] [facility] Diastolic blood pressure 2023-11-18 16:30:00 113 mm[Hg] [facility] Heart rate 2023-11-18 16:30:00 88 /min [facility] Respiratory rate 2023-11-18 16:30:00 18 /min [facility] Oxygen saturation in Arterial blood by Pulse oximetry 2023-11-18 16:30:00 98 /min [facility] Body temperature 2023-11-18 10:28:00 36.72 Ava [facility] Body height 2023-11-18 10:27:00 165.1 cm [facility] Body weight 2023-11-18 10:27:[address] [facility] BMI 2023-11-18 10:27:00 44.93 kg/m2 [facility] Systolic blood pressure 2023-11-08 20:00:00 123 mm[Hg] [facility] Diastolic blood pressure 2023-11-08 20:00:00 91 mm[Hg] [facility] Respiratory rate 2023-11-08 20:00:00 17 /min [facility] Heart rate 2023-11-08 19:00:00 75 /min [facility] Oxygen saturation in Arterial blood by Pulse oximetry 2023-11-08 19:00:00 100 /min [facility] Body temperature 2023-11-08 17:00:00 36.83 Ava [facility] Body height 2023-11-08 15:16:[address] [facility] Body weight 2023-11-08 15:16:[address] [facility] BMI 2023-11-08 15:16:00 44.93 kg/m2 [facility] Systolic blood pressure 2023-08-06 19:07:00 135 mm[Hg] [facility] Diastolic blood pressure 2023-08-06 19:07:00 93 mm[Hg] [facility] Heart rate 2023-08-06 19:04:00 81 /min [facility] Body temperature 2023-08-06 19:04:00 36.11 Ava [facility] Respiratory rate 2023-08-06 19:04:00 18 /min [facility] Body height 2023-08-06 19:04:[address] [facility] Body weight 2023-08-06 19:04:[address] [facility] BMI 2023-08-06 19:04:00 51.60 kg/m2 [facility] Oxygen saturation in Arterial blood by Pulse oximetry 2023-08-06 19:04:00 100 /min [facility] Systolic blood pressure 2023-06-21 16:24:00 156 mm[Hg] [facility] Diastolic blood pressure 2023-06-21 16:24:00 98 mm[Hg] [facility] Heart rate 2023-06-21 16:24:00 94 /min [facility] Body temperature 2023-06-21 16:24:00 37.22 Ava [facility] Respiratory rate 2023-06-21 16:24:00 16 /min [facility] Body height 2023-06-21 16:24:00 165.1 cm [facility] Body weight 2023-06-21 16:24:00 127.007 kg [facility] BMI 2023-06-21 16:24:00 46.59 kg/m2 [facility] Oxygen saturation in Arterial blood by Pulse oximetry 2023-06-21 16:24:00 100 /min [facility] Systolic blood pressure 2023-01-24 20:58:00 132 mm[Hg] [facility] Diastolic blood pressure 2023-01-24 20:58:00 96 mm[Hg] [facility] Heart rate 2023-01-24 20:56:00 95 /min [facility] Body temperature 2023-01-24 20:56:00 36.67 Ava [facility] Respiratory rate 2023-01-24 20:56:00 18 /min [facility] Body height 2023-01-24 20:56:00 165.1 cm [facility] Body weight 2023-01-24 20:56:[address] [facility] BMI 2023-01-24 20:56:00 50.97 kg/m2 [facility] Oxygen saturation in Arterial blood by Pulse oximetry 2023-01-24 20:56:00 100 /min [facility] Systolic blood pressure 2022-12-25 19:43:00 131 mm[Hg] [facility] Diastolic blood pressure 2022-12-25 19:43:00 86 mm[Hg] [facility] Heart rate 2022-12-25 19:43:00 72 /min [facility] Body temperature 2022-12-25 19:43:00 36.28 Ava [facility] Respiratory rate 2022-12-25 19:43:00 16 /min [facility] Body height 2022-12-25 19:43:00 165.1 cm [facility] Body weight 2022-12-25 19:43:00 138.347 kg [facility] BMI 2022-12-25 19:43:00 50.75 kg/m2 [facility] Oxygen saturation in Arterial blood by Pulse oximetry 2022-12-25 19:43:00 99 /min [facility] Systolic blood pressure 2022-01-20 20:03:00 135 mm[Hg] [facility] Diastolic blood pressure 2022-01-20 20:03:00 87 mm[Hg] [facility] Heart rate 2022-01-20 20:03:00 87 /min [facility] Body temperature 2022-01-20 20:03:00 36.56 Ava [facility] Respiratory rate 2022-01-20 20:03:00 17 /min [facility] Body height 2022-01-20 20:03:00 165.1 cm [facility] Body weight 2022-01-20 20:03:00 118.706 kg [facility] BMI 2022-01-20 20:03:00 43.55 kg/m2 [facility] Systolic blood pressure 2021-12-22 13:14:00 125 mm[Hg] [facility] Diastolic blood pressure 2021-12-22 13:14:00 86 mm[Hg] [facility] Heart rate 2021-12-22 13:14:00 96 /min [facility] Body temperature 2021-12-22 13:14:00 36.61 Ava [facility] Respiratory rate 2021-12-22 13:14:00 20 /min [facility] Body height 2021-12-22 13:14:00 165.1 cm [facility] Body weight 2021-12-22 13:14:00 108.41 kg [facility] BMI 2021-12-22 13:14:00 39.77 kg/m2 [facility] Systolic blood pressure 2021-11-29 12:00:00 142 mm[Hg] [facility] Diastolic blood pressure 2021-11-29 12:00:00 87 mm[Hg] [facility] Heart rate 2021-11-29 12:00:00 79 /min [facility] Body temperature 2021-11-29 12:00:00 36.72 Ava [facility] Respiratory rate 2021-11-29 12:00:00 18 /min [facility] Oxygen saturation in Arterial blood by Pulse oximetry 2021-11-29 12:00:00 100 /min [facility] Body height 2021-11-26 08:32:[address] [facility] Body weight 2021-11-26 08:32:[address] [facility] BMI 2021-11-26 08:32:00 41.84 kg/m2 [facility] Systolic blood pressure 2021-11-23 14:45:00 133 mm[Hg] [facility] Diastolic blood pressure 2021-11-23 14:45:00 102 mm[Hg] [facility] Heart rate 2021-11-23 14:42:00 77 /min [facility] Body temperature 2021-11-23 14:42:00 36.33 Ava [facility] Respiratory rate 2021-11-23 14:42:00 18 /min [facility] Body height 2021-11-23 14:42:[address] [facility] Body weight 2021-11-23 14:42:[address] [facility] BMI 2021-11-23 14:42:00 41.89 kg/m2 [facility] Systolic blood pressure 2021-11-11 15:03:00 120 mm[Hg] [facility] Diastolic blood pressure 2021-11-11 15:03:00 82 mm[Hg] [facility] Heart rate 2021-11-11 14:58:00 105 /min [facility] Body temperature 2021-11-11 14:57:00 36.33 Ava [facility] Respiratory rate 2021-11-11 14:57:00 18 /min [facility] Body height 2021-11-11 14:57:[address] [facility] Body weight 2021-11-11 14:57:[address] [facility] BMI 2021-11-11 14:57:00 41.65 kg/m2 [facility] Systolic blood pressure 2021-10-27 23:55:00 129 mm[Hg] [facility] Diastolic blood pressure 2021-10-27 23:55:00 76 mm[Hg] [facility] Heart rate 2021-10-27 23:55:00 88 /min [facility] Oxygen saturation in Arterial blood by Pulse oximetry 2021-10-27 23:55:00 96 /min [facility] Body temperature 2021-10-27 23:14:00 37 Ava [facility] Respiratory rate 2021-10-27 23:14:00 18 /min [facility] Body height 2021-10-27 22:26:[address] [facility] Body weight 2021-10-27 22:26:[address] [facility] BMI 2021-10-27 22:26:00 40.77 kg/m2 [facility] Systolic blood pressure 2021-10-27 18:08:00 140 mm[Hg] [facility] Diastolic blood pressure 2021-10-27 18:08:00 94 mm[Hg] [facility] Heart rate 2021-10-27 18:07:00 88 /[facility] 2021-10-27 18:07:00 35.61 Ava [facility] Respiratory rate 2021-10-27 18:07:00 18 /min [facility] Body weight 2021-10-27 18:07:[address] [facility] BMI 2021-10-27 18:07:00 40.44 kg/m2 [facility] Procedures Procedure Date / Time Performed Performing Clinician Source [place] INJECTION AA&/STRD TRIGEM INAL NERVE EACH BRANCH 2024-03-16 08:31:23 Aster Lee [facility] CT ABDOMEN PELVIS W CONTRAST 2024-02-22 07:32:12 Shorty Zambrano [facility] POCT TEST 2024-02-22 06:51:00 Shorty Zambrano [facility] URINALYSIS 2024-02-22 06:48:00 Shorty Zambrano [facility] LIPASE 2024-02-22 06:08:00 Shorty Zambrano [facility] COMP. METABOLIC PANEL (67112) 2024-02-22 06:08:00 Shorty Zambrano [facility] CBC WITH DIFF 2024-02-22 06:08:00 Shorty Zambrano [facility] POCT TEST 2024-01-29 16:18:00 Gianni Lopez [facility] POCT TEST 2024-01-29 16:18:00 Gianni Lopez [facility] [address] - [place] LAPAROSCOPY SURG CHOLECYSTECTOMY 2024-01-29 16:15:00 Eva Bryan [facility] POCT TEST 2024-01-12 10:32:00 Caro Bauer [facility] LIPASE 2024-01-12 10:06:00 Caro Bauer [facility] COMP. METABOLIC PANEL (08036) 2024-01-12 10:06:00 Caro Bauer [facility] CBC WITH DIFF 2024-01-12 10:06:00 Caro Bauer [facility] EGD (ENDO) 2023-12-24 17:08:17 Jeimy [facility] EGD (ENDO) 2023-12-24 17:08:17 Jeimy [facility] SURGICAL PATHOLOGY EXAM 2023-12-24 16:57:00 Yisel Hart [facility] ESOPHAGOGASTRODUODENOSCOPY 2023-12-24 16:36:00 Yisel Hart [facility] US OVARY TORSION 2023-11-18 16:33:50 Kelly Simms [facility] URINALYSIS 2023-11-18 15:15:00 Caro Bauer [facility] CT ABDOMEN PELVIS W CONTRAST 2023-11-18 13:38:59 Caro Bauer [facility] LIPASE 2023-11-18 11:10:00 Caro Bauer [facility] TEST, SERUM 2023-11-18 11:10:00 Caro Bauer [facility] COMP. METABOLIC PANEL ([id number]) 2023-11-18 11:10:00 Caro Bauer [facility] CBC WITH DIFF 2023-11-18 11:10:00 Caro Bauer [facility] COMP. METABOLIC PANEL ([id number]) 2023-11-08 16:43:00 Maame [facility] LIPASE 2023-11-08 16:01:00 Maame [facility] CBC WITH DIFF 2023-11-08 16:01:00 Maame [facility] URINALYSIS 2023-11-08 16:01:00 Maame [facility] POCT TEST 2023-11-08 16:01:00 Maame [facility] ZINC, SERUM 2023-08-06 19:42:00 Rodrigoi-Franklin [facility] VITAMIN B6, PLASMA 2023-08-06 19:42:00 Obi-Franklin [facility] FREE T4 2023-08-06 19:42:00 Rodrigoi-Franklin [facility] THYROID STIMULATING HORMONE 2023-08-06 19:42:00 Arun-Franklin [facility] COMP. METABOLIC PANEL ([id number]) 2023-08-06 19:42:00 Obi-Franklin [facility] CBC WITH DIFF 2023-08-06 19:42:00 Obi-Franklin [facility] GLYCOSYLATED HEMOGLOBIN (A1C) 2023-08-06 19:42:00 Obi-Franklin [facility] VITAMIN D, 25-OH 2023-08-06 19:42:00 Obi-Franklin [facility] FREE T3 2023-08-06 19:42:00 Obi-Franklin [facility] POCT TEST 2023-06-21 16:30:00 Bonita Trivedi [facility] URINALYSIS 2023-06-21 16:29:00 Bonita Trivedi [facility] INSURANCE CORRESPONDENCE 2023-01-15 06:01:00 Doctor Unassigned, [place] [facility] INSURANCE CORRESPONDENCE 2023-01-06 06:01:00 Doctor Unassigned, [place] [facility] GARDASIL 9 (HPV 9V) VACCINE 2022-12-25 20:04:37 Obi-Franklin [facility] POCT TEST 2022-01-20 20:18:00 Jacinta Voss [facility] DME/SUPPLY JUSTIFICATION 2022-01-03 06:01:00 Doctor Unassigned, [place] [facility] CBC WITH DIFF 2021-11-28 08:48:00 Adum, Vanessa Cowan [facility] CENTRAL NEURAXIAL BLOCK 2021-11-26 20:52:15 Wilver Owens [facility] HB ABO GROUPING 2021-11-26 09:30:00 Adum, Vanessa Cowan [facility] LACTATE DEHYDROGENASE 2021-11-26 09:29:00 Adum, Vanessa Cowan [facility] URIC ACID 2021-11-26 09:29:00 Adum, Vanessa Cowan [facility] COMP. METABOLIC PANEL ([id number]) 2021-11-26 09:29:00 Adum, Vanessa Cowan [facility] URINE DRUG (IMMUNOASSAY) - COMPREHENSIVE DRUG SCREEN 2021-11-26 09:29:00 Adum, Vanessa Cowan [facility] CBC WITH DIFF 2021-11-26 09:29:00 Adum, Vanessa Cowan [facility] URINALYSIS 2021-11-26 09:29:00 Adum, Vanessa Cowan [facility] HEPATITIS B SURFACE ANTIGEN 2021-11-26 09:29:00 Adum, Vanessa Cowan [facility] ADC OR THOMPSON ONLY - RPR 2021-11-26 09:29:00 Adum, Vanessa Cowan [facility] HIV 1/2 AG-AB WITH REFLEX 2021-11-26 09:29:00 Adum, Vanessa Cowan [facility] CONSENT/REFUSAL FOR DIAGNOSI S AND TREATMENT 2021-11-26 08:08:59 Doctor Unassigned, [place] [facility] POCT URINALYSIS 2021-11-23 14:56:00 Rodrick Pete [facility] POCT URINALYSIS 2021-11-11 14:58:00 Rodrick Pete [facility] CONSENT/REFUSAL FOR DIAGNOSI S AND TREATMENT 2021-10-27 22:13:12 Doctor Unassigned, [place] [facility] POCT URINALYSIS 2021-10-27 18:21:00 Rodrick Pete [facility] Encounters Start Date/Time End Date/Time Encounter Type Admission Type Attending [facility] Care Department Encounter ID Source 2024-05-28 10:40:00 2024-05-28 10:40:00 Outpatient R OBI-FRANKLIN JESS OBI-FRANKLIN , [facility] [id number] [facility] 2024-03-30 00:00:00 2024-03-31 12:14:42 Patient Secure Msg Obi-Franklin , [facility] BUILDING 1.2.840.114 350.1.13.10 4.2.7.2.686 [id number] 044 [id number] [facility] 2024-03-28 00:00:00 2024-03-30 12:51:45 Refill Obi-Franklin , [facility] BUILDING 1.2.840.114 350.1.13.10 4.2.7.2.686 [id number] 044 [id number] [facility] 2024-03-28 00:00:00 2024-03-28 15:21:20 [facility] 1.2.840.114 350.1.13.10 4.2.7.2.686 [id number] 044 [id number] [facility] 2024-03-27 13:20:00 2024-03-27 13:20:00 Outpatient R OBI-FRANKLIN , JESS OBI-FRANKLIN , [facility] [id number] [facility] 2024-03-26 00:00:00 2024-03-26 10:49:07 Telephone Jeimy [facility] BUILDING 1.2.840.114 350.1.13.10 4.2.7.2.686 [id number] 044 [id number] [facility] 2024-03-18 00:00:00 2024-03-18 10:19:58 Patient Secure Msg Arun-Franklin [facility] BUILDING 1.2.840.114 350.1.13.10 4.2.7.2.686 [id number] 044 [id number] [facility] 2024-03-17 00:00:00 2024-03-18 08:09:54 Telephone ObGadiel [facility] BUILDING 1.2.840.114 350.1.13.10 4.2.7.2.686 [id number] 044 [id number] [facility] 2024-03-16 02:22:00 2024-03-16 02:40:00 Emergency X ASTER LEE [facility] [id number] [facility] 2024-03-16 02:22:00 2024-03-16 02:40:00 Emergency Aster Lee [facility] 1.2840.114 350.1.13.10 4.2.7.2.686 [id number] 084 [id number] [facility] 2024-02-11 00:00:00 2024-03-15 18:16:55 Patient Secure [facility] 1.2840.114 350.1.13.10 4.2.7.2.686 [id number] [facility] 2024-03-10 00:00:00 2024-03-10 23:21:57 Refill Obsuzanne-Franklin [facility] NAL BUILDING 1.2.114 350.1.13.10 4.2.7.2.686 [id number] 044 [id number] [facility] 2024-03-07 00:00:00 2024-03-08 10:28:33 Telephone Obi-Franklin [facility] BUILDING 1.2.114 350.1.13.10 4.2.7.2.686 [id number] 044 [id number] [facility] 2024-03-06 14:15:00 2024-03-06 14:15:00 Outpatient R EVA BRYAN [facility] [id number] [facility] 2024-03-05 00:00:00 2024-03-06 09:29:39 Telephone Obi-Franklin [facility] BUILDING 1.2840.114 350.1.13.10 4.2.7.2.686 [id number] 044 [id number] [facility] 2024-03-04 00:00:00 2024-03-05 15:00:39 Patient Secure Msg Obi-Franklin [facility] NAL BUILDING 1.2.840.114 350.1.13.10 4.2.7.2.686 [id number] 044 [id number] [facility] 2024-03-04 00:00:00 2024-03-04 14:51:37 Telephone Jeimy [facility] PROFESSIO NAL BUILDING 1.2.840.114 350.1.13.10 4.2.7.2.686 [id number] 044 [id number] [facility] 2024-02-28 00:00:00 2024-03-03 16:59:48 Telephone Jeimy [facility] NAL BUILDING 1.2.840.114 350.1.13.10 4.2.7.2.686 [id number] 044 [id number] [facility] 2024-02-28 00:00:00 2024-02-28 13:24:25 Telephone Jeimy [facility] NAL BUILDING 1.2.840.114 350.1.13.10 4.2.7.2.686 [id number] [id number] [facility] 2024-02-27 00:00:00 2024-02-27 15:55:52 Telephone Jeimy [facility] NAL BUILDING 1.2.840.114 350.1.13.10 4.2.7.2.686 [id number] 044 [id number] [facility] 2024-02-27 10:40:00 2024-02-27 11:10:59 Outpatient R JESS MUNSON [facility] [id number] [facility] 2024-02-27 10:40:00 2024-02-27 11:10:59 Office Visit VitoFranklin [facility] BUILDING 1.2.840.114 350.1.13.10 4.2.7.2.686 [id number] 044 [id number] [facility] 2024-02-22 00:00:00 2024-02-22 13:47:53 [facility] 1.2.840.114 350.1.13.10 4.2.7.2.686 [id number] 044 [id number] [facility] 2024-02-21 23:55:00 2024-02-22 02:59:00 Emergency X [facility] [id number] [facility] 2024-02-21 23:55:00 2024-02-22 02:59:00 Emergency Shorty Zambrano [facility] 1.2.840.114 350.1.13.10 4.2.7.2.686 [id number] 084 [id number] [facility] 2024-02-21 00:00:00 2024-02-21 08:19:30 [facility] 1.2.840.114 350.1.13.10 4.2.7.2.686 [id number] 044 [id number] [facility] 2024-02-11 00:00:00 2024-02-13 09:13:13 Telephone Irvin Eva [facility] BUILD[facility] 1.2.840.114 350.1.13.10 4.2.7.2.686 [id number] [facility] 2024-02-11 00:00:00 2024-02-11 13:15:26 Patient [facility] 1.2.840.114 350.1.13.10 4.2.7.2.686 [id number] 188 [id number] [facility] 2024-02-11 00:00:00 2024-02-11 12:46:06 Refill VitoFranklin Angeloma [facility] BU[facility] 1.2.840.114 350.1.13.10 4.2.7.2.686 [id number] 044 [id number] [facility] 2024-02-08 00:00:00 2024-02-08 14:40:57 Telephone Eva Bryan [facility] BU[facility] 1.2.840.114 350.1.13.10 4.2.7.2.686 [id number] [facility] 2024-02-07 00:00:00 2024-02-08 14:24:51 Patient Secure Msg Eva Bryan [facility] 1.2.840.114 350.1.13.10 4.2.7.2.686 [id number] [facility] 2024-01-30 00:00:00 2024-01-31 08:09:51 Telephone Eva Bryan [facility] 1.2.840.114 350.1.13.10 4.2.7.2.686 [id number] [facility] 2024-01-29 08:46:00 2024-01-29 14:10:00 Outpatient R EVA BRYAN [facility] [id number] [facility] 2024-01-29 08:46:00 2024-01-29 14:10:00 Hospital Encounter [facility] 1.2.840.114 350.1.13.10 4.2.7.2.686 [id number] [id number] [facility] 2024-01-29 10:00:00 2024-01-29 12:35:00 Surgery Eva Bryan [facility] 1.2.840.114 350.1.13.10 4.2.7.2.686 [id number] 020 [id number] [facility] 2024-01-25 00:00:00 2024-01-28 13:50:46 Refill [facility] NAL BUILDING 1.2.840.114 350.1.13.10 4.2.7.2.686 [id number] 044 [id number] [facility] 2024-01-12 03:54:00 2024-01-12 05:48:00 Emergency X CARO BAUER [facility] [id number] [facility] 2024-01-12 03:54:00 2024-01-12 05:48:00 Emergency [facility] 1.2.840.114 350.1.13.10 4.2.7.2.686 [id number] [id number] [facility] 2024-01-11 00:00:00 2024-01-11 12:50:05 Patient Secure Msg Arun-Franklin [facility] NAL BUILD[facility] 1.2.840.114 350.1.13.10 4.2.7.2.686 [id number] 044 [id number] [facility] 2024-01-10 00:00:00 2024-01-11 05:46:35 Patient Secure Msg Arun-Franklin [facility] PROFESSIO NAL BUILDING 1.2.840.114 350.1.13.10 4.2.7.2.686 [id number] 044 [id number] [facility] 2024-01-07 11:15:00 2024-01-07 12:06:32 Outpatient R EVA BRYAN [facility] [id number] [facility] 2024-01-07 11:15:00 2024-01-07 12:06:32 Office Visit Eva Bryan [facility] BUILD[facility] 1.2.840.114 350.1.13.10 4.2.7.2.686 [id number] 188 [id number] [facility] 2023-11-30 00:00:00 2024-01-05 18:24:03 Patient Secure Msg [facility] 1.2.840.114 350.1.13.10 4.2.7.2.686 [id number] 044 [id number] [facility] 2024-01-03 11:00:00 2024-01-03 11:41:02 Outpatient R OBI-JESS REID OBSuzanne-FRANKLIN [facility] [id number] [facility] 2024-01-03 11:00:00 2024-01-03 11:41:02 Office Visit Jess Munson [facility] 1.2.840.114 350.1.13.10 4.2.7.2.686 [id number] 044 [id number] [facility] 2024-01-02 00:00:00 2024-01-02 08:01:22 Telephone [facility] 1.2.840.114 350.1.13.10 4.2.7.2.686 [id number] 044 [id number] [facility] 2023-12-25 00:00:00 2023-12-27 05:31:52 Refill Jeimy [facility] BUILDING 1.2.840.114 350.1.13.10 4.2.7.2.686 [id number] 044 [id number] [facility] 2023-12-25 00:00:00 2023-12-25 12:23:25 Yann De Souza [facility] 1.2.840.114 350.1.13.10 4.2.7.2.686 [id number] 071 [id number] [facility] 2023-12-24 00:00:00 2023-12-24 16:00:22 Patient Secure Msg Yisel Hart [facility] 1.2.840.114 350.1.13.10 4.2.7.2.686 [id number] 071 [id number] [facility] 2023-12-24 09:50:00 2023-12-24 11:47:00 Outpatient R YISEL HART [facility] [id number] [facility] 2023-12-24 09:50:00 2023-12-24 11:47:00 Hospital Encounter Yisel Hart [facility] 1.2.840.114 350.1.13.10 4.2.7.2.686 [id number] [facility] 2023-12-24 10:45:00 2023-12-24 11:15:00 Surgery Yisel Hart [facility] 1.2.840.114 350.1.13.10 4.2.7.2.686 [id number] 020 [id number] [facility] 2023-12-18 14:30:00 2023-12-18 14:30:00 Outpatient R KONRAD ORDOÑEZ OGECHUKWU [facility] [id number] [facility] 2023-12-18 13:00:00 2023-12-18 13:00:00 Outpatient R OBI-FRANKLIN JESS OBI-Valerie REIDZOMA [facility] [id number] [facility] 2023-12-17 00:00:2023-12-18 11:14:39 Telephone Jess Munson [facility] PROFESSIO NAL BUILDING 1.2.840.114 350.1.13.10 4.2.7.2.686 [id number] 044 [id number] [facility] 2023-12-12 08:40:00 2023-12-12 08:40:00 Outpatient R OBI-JESS REID OBI-FRANKLIN , [facility] [id number] [facility] 2023-12-07 00:00:00 2023-12-10 08:32:14 Refill Konrad Ordoñez [facility] PROFESSIO NAL BUILDING 1.2.840.114 350.1.13.10 4.2.7.2.686 [id number] 044 [id number] [facility] 2023-11-30 00:00:00 2023-12-04 09:32:31 Patient Secure Tianna Marrero [facility] 1.2.840.114 350.1.13.10 4.2.7.2.686 [id number] [facility] 2023-11-30 15:45:00 2023-11-30 15:45:00 Outpatient R ISAAC SHAY [facility] [id number] [facility] 2023-11-27 14:00:00 2023-11-27 14:37:01 Outpatient R VANESSA LEYVA VIVIAN [facility] [id number] [facility] 2023-11-27 14:00:00 2023-11-27 14:37:01 Office Visit Vanessa Leyva [facility] 1.2.840.114 350.1.13.10 4.2.7.2.686 [id number] [facility] 2023-11-26 15:00:00 2023-11-26 15:30:00 Office Visit Jose De Jesus Medina [facility] BU[facility] 1..840.114 350.1.13.10 4.2.7.2.686 [id number] [facility] 2023-11-26 15:00:00 2023-11-26 15:00:00 Outpatient R JOSE DE JESUS MEDINA JOSE DE JESUS MEDINA [facility] [id number] [facility] 2023-11-22 13:00:00 2023-11-22 13:30:00 Office Visit Tianna Mei [facility] 1.840.114 350.1.13.10 4.2.7.2.686 [id number] 071 [id number] [facility] 2023-11-22 13:00:00 2023-11-22 13:00:00 Outpatient R TIANNA MEI ASHLEY [facility] [id number] [facility] 2023-11-20 10:00:00 2023-11-20 10:00:00 Outpatient R [facility] [id number] [facility] 2023-11-19 10:30:00 2023-11-19 10:30:00 Dampener Operator Visit 2, Adc Lab Obi-Valerie Reidzoma 2, Adc Lab [facility] BUILD[facility] 1..840.114 350.1.13.10 4.2.7.2.686 [id number] [facility] 2023-11-19 09:40:00 2023-11-19 10:03:53 Outpatient R OBI-FRANKLIN JESS OBI-FRANKLIN JESS [facility] [id number] [facility] 2023-11-19 09:40:00 2023-11-19 10:03:53 Office Visit Obi-Valerie Reidzoma [facility] BU[facility] 1.2.840.114 350.1.13.10 4.2.7.2.686 [id number] 044 [id number] [facility] 2023-11-15 00:00:00 2023-11-18 18:57:29 Refill Obi-Franklin , [facility] PROFESSIO NAL BUILDING 1.2.840.114 350.1.13.10 4.2.7.2.686 [id number] 044 [id number] [facility] 2023-11-16 00:00:00 2023-11-18 18:53:00 [facility] 1.2.840.114 350.1.13.10 4.2.7.2.686 [id number] [id number] [facility] 2023-11-18 05:34:00 2023-11-18 13:08:00 Emergency KELLY CUEVAS ROBERT [facility] [id number] [facility] 2023-11-18 05:34:00 2023-11-18 13:08:00 Emergency Caro Bauer Robert Lee [facility] 1.2.840.114 350.1.13.10 4.2.7.2.686 [id number] 084 [id number] [facility] 2023-11-08 10:16:00 2023-11-08 16:16:00 Emergency TIFF VILLAFUERTE ERICA [facility] [id number] [facility] 2023-11-08 10:16:00 2023-11-08 16:16:00 Emergency Tiff Isabel [facility] 1.2.840.114 350.1.13.10 4.2.7.2.686 [id number] [id number] [facility] 2023-10-16 00:00:00 2023-10-19 05:44:04 Refill Obi-Franklin , [facility] BUILDING 1.2.840.114 350.1.13.10 4.2.7.2.686 [id number] 044 [id number] [facility] 2023-10-15 00:00:00 2023-10-16 10:48:03 Refill Obi-Franklin , Jess [facility] BU[facility] 1.2.840.114 350.1.13.10 4.2.7.2.686 [id number] 044 [id number] [facility] 2023 09:40:00 2023 09:40:00 Outpatient R OBI-FRANKLIN , JESS OBI-FRANKLIN , JESS [facility] [id number] [facility] 2023-10-01 00:00:00 2023-10-03 15:28:49 Refill Obi-Franklin , Jess [facility] 1.2.840.114 350.1.13.10 4.2.7.2.686 [id number] 044 [id number] [facility] 2023-09-12 00:00:00 2023-09-13 13:09:32 Refill [facility]bi-Franklin , [facility] 1.2.840.114 350.1.13.10 4.2.7.2.686 [id number] 044 [id number] [facility] 2023-09-05 10:40:00 2023-09-05 10:40:00 Outpatient R OBI-FRANKLIN , JESS [facility] [id number] [facility] 2023-08-13 14:40:00 2023-08-13 14:40:00 Outpatient R OBI-FRANKLIN , JESS OBI-FRANKLIN , [facility] [id number] [facility] 2023-08-06 14:30:00 2023-08-06 15:25:53 Dampener Operator Visit 2, Adc Lab Obi-Jess Reid [facility] 1.2.840.114 350.1.13.10 4.2.7.2.686 [id number] [facility] 2023-08-06 14:30:00 2023-08-06 14:30:00 Outpatient R OBI-FRANKLIN , JESS OBI[facility]FRANKLIN , [facility] [id number] [facility] 2023-08-06 13:40:00 2023-08-06 14:29:31 [facility] 1.2.840.114 350.1.13.10 4.2.7.2.686 [id number] [facility] 2023-08-06 08:40:00 2023-08-06 08:40:00 Outpatient R OBI-FRANKLIN , JESS OBI[facility]FRANKLIN , [facility] [id number] [facility] 2023-07-31 00:00:00 2023-08-01 12:29:54 Telephone Konrad Ordoñez [facility] 1.2.840.114 350.1.13.10 4.2.7.2.686 [id number] [facility] 2023-07-31 00:00:00 2023-07-31 18:10:27 [facility] , [facility] 1.2.840.114 350.1.13.10 4.2.7.2.686 [id number] [facility] 2023-07-30 00:00:00 2023-07-31 09:10:12 Patient Secure Msg Obi-Franklin , [facility] 1.2.840.114 350.1.13.10 4.2.7.2.686 [id number] [facility] 2023-07-25 00:00:00 2023-07-25 09:15:22 Refill Obi-Franklin , [facility] 1.2840.114 350.1.13.10 4.2.7.2.686 [id number] [facility] 2023-05-29 00:00:00 2023-06-30 18:07:42 Patient Secure Msg Obi-Franklin [facility] 1.2840.114 350.1.13.10 4.2.7.2.686 [id number] [facility] 2023-06-21 11:31:00 2023-06-21 12:29:00 Emergency X BONITA TRIVEDI [facility] ERT [id number] [facility] 2023-06-21 11:31:00 2023-06-21 12:29:00 Emergency Bonita Trivedi [facility] 1.2840.114 350.1.13.10 4.2.7.2.686 [id number] [facility] 2023-06-18 08:40:00 2023-06-18 08:40:00 Outpatient R OBI-FRANKLIN , JESS OBI-FRANKLIN , [facility] [id number] [facility] 2023-06-12 00:00:00 2023-06-12 00:00:00 Patient Secure Msg Obi-Franklin [facility] 1.2.840.114 350.1.13.10 4.2.7.2.686 [id number] [facility] 2023-06-06 13:00:00 2023-06-06 13:00:00 Outpatient R OBI-FRANKLINJESS Arceo OBI-FRANKLIN , [facility] [id number] [facility] 2023-05-29 00:00:00 2023-05-29 00:00:00 [facility] 1.2.840.114 350.1.13.10 4.2.7.2.686 [id number] 044 [id number] [facility] 2023-04-25 15:00:00 2023-04-25 15:00:00 Outpatient R OBI-FRANKLIN JESS OBI-FRANKLIN , [facility] [id number] [facility] 2023-04-23 00:00:00 2023-04-23 00:00:00 Refill Obi-Franklin , [facility] BUILDING 1.2.840.114 350.1.13.10 4.2.7.2.686 [id number] 044 [id number] [facility] 2023-04-11 00:00:00 2023-04-11 00:00:00 Refill Obi-Franklin , [facility] BUILDING 1.2.840.114 350.1.13.10 4.2.7.2.686 [id number] [id number] [facility] 2023-04-05 00:00:00 2023-04-05 00:00:00 Telephone Obi-Franklin [facility] BUILDING 1.2.840.114 350.1.13.10 4.2.7.2.686 [id number] 044 [id number] [facility] 2023-04-03 00:00:00 2023-04-03 00:00:00 Telephone Carlos Ibrahim [facility] BUILDING 1.2.840.114 350.1.13.10 4.2.7.2.686 [id number] [id number] [facility] 2023-04-03 00:00:00 2023-04-03 00:00:00 Patient Secure Msg Obi-Franklin [facility] BUILDING 1.2.840.114 350.1.13.10 4.2.7.2.686 [id number] 044 [id number] [facility] 2023-04-01 00:00:00 2023-04-01 00:00:00 Refill Jeimy [facility] BUILDING 1.2.840.114 350.1.13.10 4.2.7.2.686 [id number] 044 [id number] [facility] 2023-03-02 00:00:00 2023-03-02 00:00:00 Refill Jeimy [facility] BUILDING 1.2.840.114 350.1.13.10 4.2.7.2.686 [id number] 044 [id number] [facility] 2023-02-19 00:00:00 2023-02-19 00:00:00 [facility] 1.2.840.114 350.1.13.10 4.2.7.2.686 [id number] 044 [id number] [facility] 2023-01-26 00:00:00 2023-01-26 00:00:00 Patient Secure Msg Doctor Unassigned, [place] [facility] 1.2.840.114 350.1.13.10 4.2.7.2.686 [id number] [id number] [facility] 2023-01-24 15:00:00 2023-01-24 15:25:03 Out[facility] [id number] [facility] 2023-01-24 15:00:00 2023-01-24 15:25:03 [facility] 1.2.840.114 350.1.13.10 4.2.7.2.686 [id number] 044 [id number] [facility] 2023-01-16 00:00:00 2023-01-16 00:00:00 [facility] 1.2.840.114 350.1.13.10 4.2.7.2.686 [id number] 044 [id number] [facility] 2023-01-15 00:00:00 2023-01-15 00:00:00 Orders Only Doctor Unassigned, [place] [facility] 1.2840.114 350.1.13.10 4.2.7.2.686 [id number] [facility] 2023-01-15 00:00:00 2023-01-15 00:00:00 Patient Secure Msg Doctor Unassigned, [place] [facility] 1.20.114 350.1.13.10 4.2.7.2.686 [id number] 044 [id number] [facility] 2023-01-08 00:00:00 2023-01-08 00:00:00 [facility] 1.2.840.114 350.1.13.10 4.2.7.2.686 [id number] 044 [id number] [facility] 2023-01-06 00:00:00 2023-01-06 00:00:00 Orders Only Doctor Unassigned, [place] [facility] 1.2.840.114 350.1.13.10 4.2.7.2.686 [id number] [id number] [facility] 2023-01-05 00:00:00 2023-01-05 00:00:00 [facility]phone [facility] 1.2.840.114 350.1.13.10 4.2.7.2.686 [id number] 044 [id number] [facility] 2023-01-03 00:00:00 2023-01-03 00:00:00 Telephone Jeimy [facility] 1.2.840.114 350.1.13.10 4.2.7.2.686 [id number] 044 [id number] [facility] 2023-01-01 00:00:00 2023-01-01 00:00:00 Patient Secure Msg Doctor Unassigned, [place] [facility] 1.2.840.114 350.1.13.10 4.2.7.2.686 [id number] 044 [id number] [facility] 2022-12-28 00:00:00 2022-12-28 00:00:00 Patient Secure Msg Obi-Franklin [facility] BUILDING 1.2.840.114 350.1.13.10 4.2.7.2.686 [id number] 044 [id number] [facility] 2022-12-26 00:00:00 2022-12-26 00:00:00 Telephone Jeimy [facility] 1.2.840.114 350.1.13.10 4.2.7.2.686 [id number] 044 [id number] [facility] 2022-12-25 14:45:00 2022-12-25 15:00:00 Dampener Operator Visit 2, Adc Lab Obi-Jess Reid [facility] 1..840.114 350.1.13.10 4.2.7.2.686 [id number] [facility] 2022-12-25 14:00:00 2022-12-25 14:14:40 Outpatient R OBI-FRANKLIN , JESS OBI-FRANKLIN , JESS [facility] [id number] [facility] 2022-12-25 14:00:00 2022-12-25 14:14:40 [facility] 1..840.114 350.1.13.10 4.2.7.2.686 [id number] [facility] 2022-12-19 10:00:00 2022-12-19 10:00:00 Outpatient R OBI-FRANKLIN , JESS OBI-FRANKLIN , JESS [facility] [id number] [facility] 2022-07-19 15:30:00 2022-07-19 15:30:00 Outpatient R KAMILA MILAN [facility] [id number] [facility] 2022-04-14 10:00:00 2022-04-14 10:00:00 Outpatient R [facility] [id number] [facility] 2022-01-20 13:00:00 2022-01-20 14:43:14 Outpatient R JACINTA VOSS [facility] [id number] [facility] 2022-01-20 13:00:00 2022-01-20 14:43:14 Office Visit Provider, GiovannaRmchMeche Chicas Brenda A [facility] HEALTH SPEECH THERAPIST [facility] & CHILD [facility] ..840.114 350.1.13.10 4.2.7.2.686 [id number] 107 [id number] [facility] 2022-01-16 10:45:00 2022-01-16 10:45:00 Outpatient R MECHE ROBERSON [facility] [id number] [facility] 2022-01-05 00:00:00 2022-01-05 00:00:00 Encounter 1.2.840.1 32240.1.1 3.104.2.7 .[id number] 1.2.840.114 350.1.13.10 4.2.7.2.696 [id number] [facility] 2022-01-03 00:00:00 2022-01-03 00:00:00 Orders Only Doctor Unassigned, [place] [facility] 1.2840.114 350.1.13.10 4.2.7.2.686 [id number] [facility] 2021-12-29 00:00:00 2021-12-29 00:00:00 Patient Secure Msg Rodrick Pete [facility] SPEECH THERAPIST [facility]NAL & CHILD [facility] 1.2840.114 350.1.13.10 4.2.7.2.686 [id number] 107 [id number] [facility] 2021-12-22 07:45:00 2021-12-22 08:42:11 Outpatient R JACINTA VOSS [facility] [id number] [facility] 2021-12-22 07:45:00 2021-12-22 08:42:11 Routine Visit Provider, Dylan-Rmchp Jacinta Parra [facility] SPEECH THERAPIST [facility] & CHILD [facility] 1.2840.114 350.1.13.10 4.2.7.2.686 [id number] 107 [id number] [facility] 2021-12-03 00:00:00 2021-12-03 00:00:00 Patient Secure Msg Doctor Unassigned, [place] [facility] 1.2.840.114 350.1.13.10 4.2.7.2.686 [id number] [facility] 2021-11-30 00:00:00 2021-11-30 00:00:00 Patient Secure Rodrick Schwartz [facility] HEALTH SPEECH THERAPIST [facility] & CHILD [facility] 1.2.840.114 350.1.13.10 4.2.7.2.686 [id number] 107 [id number] [facility] 2021-11-26 03:26:00 2021-11-29 10:05:00 Inpatient P VANESSA LEYVA [facility] [id number] [facility] 2021-11-26 03:26:00 2021-11-29 10:05:00 Hospital Encounter Vanessa Leyva [facility] 1.2.840.114 350.1.13.10 4.2.7.2.686 [id number] [facility] 2021-11-26 15:34:00 2021-11-27 08:48:00 Anesthesia Event Wilver Owens [facility] 1.2.840.114 350.1.13.10 4.2.7.2.686 [id number] 083 [id number] [facility] 2021-11-26 10:17:37 2021-11-26 10:17:37 Anesthesia Event Wilver Owens [facility] 1.2.840.114 350.1.13.10 4.2.7.2.686 [id number] 083 [id number] [facility] 2021-11-23 09:45:00 2021-11-23 10:25:58 Outpatient LOVE SANTA EMILY [facility] [id number] [facility] 2021-11-23 09:45:00 2021-11-23 10:25:58 Routine Visit Provider, Jasonp Rodrick Norton Emily J. [facility] HEALTH SPEECH THERAPIST [facility] & CHILD [facility] 1.2.840.114 350.1.13.10 4.2.7.2.686 [id number] 107 [id number] [facility] 2021-11-11 09:45:00 2021-11-11 10:12:23 Routine Visit Rodrick Pete [facility] HEALTH SPEECH THERAPIST [facility]NAL & CHILD [facility] 1.2.840.114 350.1.13.10 4.2.7.2.686 [id number] 107 [id number] [facility] 2021-11-11 09:45:00 2021-11-11 10:12:23 Outpatient R RODRICK PETE [facility] [id number] [facility] 2021-11-11 00:00:00 2021-11-11 00:00:00 Patient Secure Msg Rodrick Pete [facility] HEALTH SPEECH THERAPIST [facility] & CHILD [facility] 1.2.840.114 350.1.13.10 4.2.7.2.686 [id number] 107 [id number] [facility] 2021-11-09 00:00:00 2021-11-09 00:00:00 Telephone Rodrick Pete [facility] HEALTH SPEECH THERAPIST [facility] & CHILD [facility] 1.2.840.114 350.1.13.10 4.2.7.2.686 [id number] 107 [id number] [facility] 2021-11-07 00:00:00 2021-11-07 00:00:00 Refill Rodrick Pete [facility] HEALTH SPEECH THERAPIST [facility] & CHILD [facility] 1.2.840.114 350.1.13.10 4.2.7.2.686 [id number] 107 [id number] [facility] 2021-10-27 17:35:00 2021-10-27 19:05:00 Outpatient X BRENDA VELÁSQUEZ [facility] [id number] Krista padilla [facility] 2021-10-27 17:35:00 2021-10-27 19:05:00 Emergency Brenda Velásquez K Paige [facility] 1.114 350.1.13.10 4.2.7.2.686 [id number] [facility] 2021-10-27 12:45:00 2021-10-27 13:34:39 Outpatient R SONIA PETECUAUHTEMOC [facility] [id number] [facility] 2021-10-27 12:45:00 2021-10-27 13:34:39 Routine Visit Rodrick Pete [facility] HEALTH SPEECH THERAPIST [facility] & CHILD [facility] 1..114 350.1.13.10 4.2.7.2.686 [id number] 107 [id number] [facility] 2021-10-27 12:45:00 2021-10-27 12:45:00 Outpatient R SONIA PETETAYLAGloria [facility] [id number] [facility] 2021-10-27 00:00:00 2021-10-27 00:00:00 Orders Only Doctor Unassigned, [place] [facility] 1.114 350.1.13.10 4.2.7.2.686 [id number] [id number] [facility] 2021-10-26 00:00:00 2021-10-26 00:00:00 Abstract PeteRodrick [facility] HOME HEALTH SPEECH THERAPIST [facility] MATERNAL & CHILD [facility] 1..114 350.1.13.10 4.2.7.2.686 [id number] 107 [id number] [facility] 2021-10-21 09:45:00 2021-10-21 10:30:00 Dampener Operator Visit Ultrasound, Vinh Stone [facility] HEALTH SPEECH THERAPIST [facility] & CHILD [facility] 1..114 350.1.13.10 4.2.7.2.686 [id number] [facility] 2021-10-21 09:45:00 2021-10-21 09:45:00 Outpatient VINH JOY SANGEETA [facility] [id number] [facility] 2021-10-18 00:00:00 2021-10-18 00:00:00 Patient Secure Msg Doctor Unassigned, [place] [facility] HEALTH SPEECH THERAPIST [facility] & CHILD [facility] 1..840.114 350.1.13.10 4.2.7.2.686 [id number] 107 [id number] [facility] 2021-10-18 00:00:00 2021-10-18 00:00:00 Telephone Rodrick Pete [facility] HOME HEALTH SPEECH THERAPIST [facility] & CHILD [facility] 1..840.114 350.1.13.10 4.2.7.2.686 [id number] 107 [id number] [facility] 2021-10-14 08:00:00 2021-10-14 08:34:31 Outpatient R RODRICK PETE [facility] [id number] [facility] 2021-10-14 08:00:00 2021-10-14 08:34:31 Routine Visit Rodrick Pete [facility] ..840.114 350.1.13.10 4.2.7.2.686 [id number] 107 [id number] [facility] 2021-09-29 10:45:00 2021-09-29 11:39:29 Outpatient R RODRICK PETE [facility] [id number] [facility] 2021-09-29 10:45:00 2021-09-29 11:39:29 Routine Visit Rodrick Pete [facility] ..840.114 350.1.13.10 4.2.7.2.686 [id number] 107 [id number] [facility] 2021-09-29 10:45:00 2021-09-29 10:45:00 Outpatient RODRICK DENNIS [facility] [id number] [facility] 2021-09-16 00:00:00 2021-09-16 00:00:00 Patient Secure Msg Doctor Unassigned, [place] [facility] 1.2.840.114 350.1.13.10 4.2.7.2.686 [id number] [facility] 2021-09-16 00:00:00 2021-09-16 00:00:00 Telephone Rodrick Pete [facility] HEALTH SPEECH THERAPIST [facility] & CHILD [facility] 1..840.114 350.1.13.10 4.2.7.2.686 [id number] 107 [id number] [facility] 2021-09-16 00:00:00 2021-09-16 00:00:00 Telephone Rodrick Pete [facility] HEALTH SPEECH THERAPIST [facility] & CHILD [facility] 1.2.840.114 350.1.13.10 4.2.7.2.686 [id number] 107 [id number] [facility] 2021-09-15 10:45:00 2021-09-15 11:53:13 Outpatient R RODRICK PETE [facility] [id number] [facility] 2021-09-15 10:45:00 2021-09-15 11:53:13 Routine Visit Rodrick Pete [facility] HEALTH SPEECH THERAPIST [facility] & CHILD [facility] 1.2.840.114 350.1.13.10 4.2.7.2.686 [id number] 107 [id number] [facility] 2021-09-13 00:00:00 2021-09-13 00:00:00 Refill Rodrick Pete [facility] HEALTH SPEECH THERAPIST [facility] & CHILD [facility] 1.2.840.114 350.1.13.10 4.2.7.2.686 [id number] 107 [id number] [facility] 2021-08-23 08:45:00 2021-08-23 22:46:00 Outpatient X BRENDA VELÁSQUEZ [facility] [id number] [facility] 2021-08-23 08:45:00 2021-08-23 22:46:00 Emergency Martinez, Brenda Avery [facility] 1.2.840.114 350.1.13.10 4.2.7.2.686 [id number] [facility] 2021-08-18 10:30:00 2021-08-18 10:44:10 Outpatient R RODRICK PETE [facility] [id number] [facility] 2021-08-18 10:30:00 2021-08-18 10:44:10 Routine Visit Rodrick Pete [facility] HOME HEALTH SPEECH THERAPIST [facility] CHILD [facility] 1.2.840.114 350.1.13.10 4.2.7.2.686 [id number] 107 [id number] [facility] 2021-08-11 00:00:00 2021-08-11 00:00:00 Patient Secure Msg Rodrick Pete [facility] HOME HEALTH SPEECH THERAPIST [facility] & CHILD [facility] 1.2.840.114 350.1.13.10 4.2.7.2.686 [id number] 107 [id number] [facility] 2021-08-11 00:00:00 2021-08-11 00:00:00 Refill Rodrick Pete [facility] HOME HEALTH SPEECH THERAPIST [facility] CHILD [facility] 1.2.840.114 350.1.13.10 4.2.7.2.686 [id number] 107 [id number] [facility] 2021-08-11 00:00:00 2021-08-11 00:00:00 Refbrandy Rodrick Pete [facility] HOME HEALTH SPEECH THERAPIST [facility] & CHILD [facility] 1.2.840.114 350.1.13.10 4.2.7.2.686 [id number] 107 [id number] [facility] 2021-08-11 00:00:00 2021-08-11 00:00:00 Refbrandy Rodrick Pete [facility] HOME HEALTH SPEECH THERAPIST [facility] CHILD [facility] 1.2.840.114 350.1.13.10 4.2.7.2.686 [id number] 107 [id number] [facility] 2021-08-02 00:00:00 2021-08-02 00:00:00 Rodrick Philip [facility] HOME HEALTH SPEECH THERAPIST [facility] CHILD [facility] 1.2.840.114 350.1.13.10 4.2.7.2.686 [id number] 107 [id number] [facility] 2021-08-01 00:00:00 2021-08-01 00:00:00 Patient Secure Msg Doctor Unassigned, [place] [facility] HEALTH SPEECH THERAPIST [facility] & CHILD [facility] 1.2.840.114 350.1.13.10 4.2.7.2.686 [id number] 107 [id number] [facility] 2021-07-29 09:30:00 2021-07-29 10:45:00 Dampener Operator Visit Ultrasound, Dylan-MfRodrick Kamara Antonio F [facility] HOME HEALTH SPEECH THERAPIST [facility] & CHILD [facility] 1.2840.114 350.1.13.10 4.2.7.2.686 [id number] [facility] 2021-07-29 09:30:00 2021-07-29 09:30:00 Outpatient P [facility] [id number] [facility] 2021-07-29 09:30:00 2021-07-29 09:30:00 Outpatient Alejandra MADDIE ROMEO [facility] [id number] [facility] 2021-07-29 08:00:00 2021-07-29 08:36:27 Dampener Operator Visit Lab, [facility]Rm[facility] Rodrick Pete [facility] HOME HEALTH SPEECH THERAPIST [facility] & CHILD [facility] 1.2.840.114 350.1.13.10 4.2.7.2.686 [id number] 107 [id number] [facility] 2021-07-23 00:00:00 2021-07-23 00:00:00 Patient Secure Msg Doctor Unassigned, [place] [facility] 1.2.840.114 350.1.13.10 4.2.7.2.686 [id number] [facility] 2021-07-21 09:00:00 2021-07-21 10:12:55 Outpatient RODRICK DENNIS [facility] [id number] [facility] 2021-07-21 09:00:00 2021-07-21 10:12:55 Routine Visit Rodrick Pete [facility] HOME HEALTH SPEECH THERAPIST [facility] & CHILD [facility] 1.2.840.114 350.1.13.10 4.2.7.2.686 [id number] 107 [id number] [facility] 2021-07-21 09:00:00 2021-07-21 10:12:55 Outpatient RODRICK DENNIS [facility] [id number] [facility] 2021-07-21 09:00:00 2021-07-21 09:00:00 Outpatient RODRICK DENNIS [facility] [id number] [facility] 2021-07-21 09:00:00 2021-07-21 09:00:00 Outpatient RODRICK DENNIS [facility] [id number] [facility] 2021-07-17 02:36:00 2021-07-17 06:54:00 Emergency X CARO BAUER [facility] [id number] [facility] 2021-07-17 02:36:00 2021-07-17 06:54:00 Emergency Caro Bauer [facility] 1.2.840.114 350.1.13.10 4.2.7.2.686 [id number] [facility] 2021-07-12 00:00:00 2021-07-12 00:00:00 Telephone Rodrick Pete [facility] HOME HEALTH SPEECH THERAPIST [facility] & CHILD [facility] 1.2.840.114 350.1.13.10 4.2.7.2.686 [id number] 107 [id number] [facility] 2021-07-06 00:00:00 2021-07-06 00:00:00 Telephone Rodrick Pete [facility] HEALTH SPEECH THERAPIST [facility] & CHILD [facility] 1.2.840.114 350.1.13.10 4.2.7.2.686 [id number] 107 [id number] [facility] 2021-06-28 01:26:00 2021-06-29 10:10:00 Outpatient X BRENDA VELÁSQUEZ [facility] [id number] [facility] 2021-06-28 01:26:00 2021-06-29 10:10:00 Emergency Alayna Bear S Brenda Velásquez [facility] 1.2.840.114 350.1.13.10 4.2.7.2.686 [id number] [facility] 2021-06-27 20:49:00 2021-06-27 20:59:00 Emergency X [facility] E[facility] [id number] [facility] 2021-06-27 20:49:00 2021-06-27 20:59:00 Emergency [facility] 1.2.840.114 350.1.13.10 4.2.7.2.686 [id number] [facility] 2021-06-24 00:00:00 2021-06-24 00:00:00 Patient Secure Msg Rodrick Pete [facility] SPEECH THERAPIST [facility] & [facility]ILD [facility] 1.2840.114 350.1.13.10 4.2.7.2.686 [id number] [facility] 2021-06-24 00:00:00 2021-06-24 00:00:00 Telephone Rodrick Pete [facility] SPEECH THERAPIST [facility] & [facility]ILD [facility] 1.0.114 350.1.13.10 4.2.7.2.686 [id number] [facility] 2021-06-23 14:00:00 2021-06-23 15:33:45 Outpatient RODRICK DENNIS [facility] [id number] [facility] 2021-06-23 14:00:00 2021-06-23 15:33:45 Initial Visit Rodrick Pete [facility] SPEECH THERAPIST [facility]ILD [facility] 1.84.114 350.1.13.10 4.2.7.2.686 [id number] [facility] 2021-06-23 14:00:00 2021-06-23 15:33:45 Outpatient RODRICK DENNIS [facility] [id number] [facility] 2021-06-23 14:00:00 2021-06-23 15:33:45 Outpatient RODRICK DENNIS [facility] [id number] [facility] 2021-06-23 00:00:00 2021-06-23 00:00:00 Orders Only Doctor Unassigned, [place] [facility] 1.2840.114 350.1.13.10 4.2.7.2.686 [id number] [facility] 2021-06-22 08:04:00 2021-06-22 13:00:00 Emergency X ANGUS DWYER [facility] ERT [id number] [facility] 2021-06-22 08:04:00 2021-06-22 13:00:00 Emergency Angus Dwyer [facility] 1.2.840.114 350.1.13.10 4.2.7.2.686 [id number] [facility] 2021-06-21 22:18:00 2021-06-21 23:26:00 Emergency Caro Bauer [facility] 1.2.840.114 350.1.13.10 4.2.7.2.686 [id number] [id number] [facility] 2021-06-21 22:18:00 2021-06-21 23:26:00 Emergency X CARO BAUER [facility] E[facility] [id number] [facility] 2021-06-21 22:18:00 2021-06-21 23:26:00 Emergency X CARO BAUER [facility] E[facility] [id number] [facility] 2021-06-11 12:44:00 2021-06-14 18:06:00 Inpatient X JOSE DE JESUS MEDINA [facility] [id number] [facility] 2021-06-11 12:44:00 2021-06-14 18:06:00 Hospital Encounter Abdullahi Gomez Christopher Adum, Vivian L Lam, Vien Cam [facility] 1.2.840.114 350.1.13.10 4.2.7.2.686 [id number] [id number] [facility] 2021-05-30 23:49:00 2021-06-03 14:41:00 Hospital Encounter Abdullahi Gomez [facility] 1.2.840.114 350.1.13.10 4.2.7.2.686 [id number] [facility] 2021-05-30 23:49:00 2021-06-03 14:41:00 Inpatient X EDITH TERRY SHANNON [facility] [id number] [facility] Results Test Description Test [...] abdomen and pelvisdemonstrate no osseous destructive lesion. [facility] (17997)2024-02-22 06:46:27* Test Item Value Reference Range Interpretation Comme nts NA (test code = 9586033880) 138 mmol/L 135-145 K (test code = 8647170390) 3.9 mmol/L 3.5-5.0 CL (test code = 3870460632) 104 mmol/L 98-108 CO2 TOTAL (test code = 9107862845) 22 mmol/L 23-31 L AGAP (test code = 9161005352) 12 2-16 BUN (test code = 7832848528) 11 mg/dL 7-23 GLUCOSE (test code = 1213520458) 113 mg/dL 70-110 H CREATININE (test code = 2160-0) 0.50 mg/dL 0.50-1.04 TOTAL BILI (test code = 5146594844) 0.9 mg/dL 0.1-1.1 CALCIUM (test code = 9154613907) 9.5 mg/dL 8.6-10.6 T PROTEIN (test code = 2943167839) 8.5 g/dL 6.3-8.2 H ALBUMIN (test code = 2634708186) 4.8 g/dL 3.5-5.0 ALK PHOS (test code = 8627511327) 81 U/L 34-122 ALTv (test code = 1742-6) 15 U/L 5-35 AST(SGOT) (test code = 9944869765) 21 U/L 13-40 eGFR (test code = 07937-1) 132.0 mL/min/1.73m2 CKD-EPI eGFR (2020). Assuming creatinine has been stable day-to-day for at least three months, the eGFR indicates Category G1 (>= 90 mL/min/1.73 m2) Lab Interpretation (test code = 38197-6) [facility] 06[facility]45:47* Test Item Value Reference Range Interpretation Comme nts LIPASE (test code = 7202526501) 24 U/L 0-220 Lab Interpretation (test cod e = 39983-3) Normal [facility] WITH JNFQ8304-67-46 06:27:08* Test Item Value Reference Range Interpretation [...] 33.9 g/dL 31.6-35.1 RDW-SD (test code = 40837-8) 48.3 fL 39.0-49.9 RDW-CV (test code = 788-0) 12.9 % 12.0-15.5 PLT (test code = 777-3) 402 166-358 H MPV (test code = 29806-0) 9.3 fL 9.5-12.9 L NRBC/100 WBC (test code = 6711314590) 0.0 0.0-10.0 NRBC x10^3 (test code = 1529781959) See_Comment [Automated message] The system which generated this result transmitted reference range: 10*3/?L. The reference range was not used to interpret this result as normal/abnormal. GRAN MAT (NEUT) % (test code = 770-8) 89.3 % IMM GRAN % (test code = 0271805216) 0.40 % LYMPH % (test code = 736-9) 7.4 % MONO % (test code = 5905-5) 2.7 % EOS % (test code = 713-8) 0.1 % BASO % (test code = 706-2) 0.1 % GRAN MAT x10^3(ANC) (test code = 0666670611) 12.26 10*3/uL 1.88-7.09 H IMM GRAN x10^3 (test code = 1334702002) 0.06 10*3/uL 0.00-0.06 LYMPH x10^3 (test code = 731-0) 1.02 10*3/uL 1.32-3.29 L MONO x10^3 (test code = 742-7) 0.37 10*3/uL 0.33-0.92 EOS x10^3 (test code = 711-2) 0.03-0.39 L BASO x10^3 (test code = 704-7) 0.01-0.07 Lab Interpretation (test code = 61650-7) [facility] 16:19:00* Test Item Value Reference Range Interpretation Comme [facility] POCT PREG (test code = 1605) Negative On board controls acceptable with C Line (test code = 3574) Yes POCT PREG LOT # (test code = 3575) [id number] POCT PREG TEST DATE ( test code = 3576) 05[facility]27/2024 [facility] Npet9892-35-55 16:19:00* Test Item Value Reference Range Interpretation Comme nts POCT PREG (test code = 1605) Negative On board controls acceptable with C Line (test code = 3574) Yes POCT PREG LOT # (test code = 3575) [id number] POCT PREG TEST DATE ( test code = 3576) 05/27/2024 [facility] [id number] 10:32:00* Test Item Value Reference Range Interpretation Comme nts POCT PREG (test code = 1605) Negative On board controls acceptable with C Line (test code = 3574) Yes POCT PREG LOT # (test code = 3575) [id number] POCT PREG TEST DATE ( test code = 3576) 2024-11-23 Lab Interpretation (test cod e = 25388-2) Normal [facility] Lzna5578-80-80 16:13:04* Test Item Value Reference Range Interpretation Comme [facility] Case Report (test code = 0404332557) Surgical Pathology ?Case: [id number] ? Authorizing Provider: ?Yisel Hart MD ?Collected: ? 12/24/2023 1057 ?Ordering Location: ? ? GI Endoscopy OR Department Received: ?12/24/2023 1148 ?Pathologist: ? Brendon Dawson MD PhD ?Specimen: ? ?STOMACH, 1. gastric biopsy ? Final Diagnosis (test code = 6827793480) q2mevTUgCQEug3mjXJNrmPQiZ zEwMzNcZnRuYmpcdWMxIHtccn LiCVnmmIkdDPH5GSLkOG5ayTf lrYu5nMbbLXAkzkT0fJYqLGdr f3adUDQ7h0efmnqeMYTqGKonQ a0loIDehSfpSwSvQCXyEDp3wG 91WSByhF0ndZHoRFx0FPTguNR ievYaHpNaUNVouIXkzZR2UBRf LF0uizggIXzqNPfcYTSubmP1L HNcnYDtC2YrRYCyNV8anrymLO Y1XNnoRTBpAHP8EvQvWBPfn8X txap6EqTubHQwTVjztDSizqnh xhShVZMvhlMRCiVYFW4FPOMOK WEMTH7SK9d5VPAqsliajWJ0PG IrTVdUH2LJQVZqUGHUP2HPLJs KMJtoYu6cHTONCF2NV6iMY9HQ JEKGGL9UOIcjZRCrQNFGFxUFX 5UEMwtBRKJNJjDGNbHGF6OVKv HUAM9YOYCOFVAZMKZzFVNACtM JRklFRFxwYXIgLSBOTyBILiBQ WUxPUkktTElLRSBPUkdBTklTT VMgSURFTlRJRklFRFxwYXJccG SvQRjkDUM4d1bcuZBtOJRyxZO vHrCtNCRiMODbd2gwUVOgqQHs ZzEwMzNcZnRuYmpcdWMxXGRlZ nQtf0ntr984nSCna7xfACPsFr M8lZRsJOAnjApkbdr7wZwwIxH rQMFgz9mshmKfPdAuWKWvKKFp XMNdeNTnF917VGYiEMpfp8lew 5LqBTWpoSDbf5G3WHYFRXgwKu VdW630z8ugh4mhdpZbgEF5YCZ nNWN3UXmzbwJsuaQ3DUhtxUVr VrP8HLjjrpKvKFhlmiQlgdJlW zq4ZOMqO244PXQ7zRytw3jdIV N9UYJoMIKnPzjnSm1ghGGhH54 7AZZoYWKLELRhiAc7BPUeyoDr laOoiFLAd827M202v9wdFTHym gFaqBfXvxvkd2wqP508HPDogW WvrsIvQjAfRZIkhBJxiUZ4XYA aSJ4gqaukCHriZJpgIDMfjxZ7 VJVizMKfS1MwMMGySV7gilbdM XD6LEpdRCKqCSD4PyGaSGYyq7 Aqxvn4XqDmls3oew39GNI4d8T kcTccKCA8QNF2LtGeRv1miXPh BRSoDM7nSlKsgQAwOKUwtc25p ZjqRIofqhXmvO7oUfCcDAKpwS WlKGXoET4saVHkNFQteR2wbdx jXHBnYnJkcmhlYWRccGdicmRy Dm3xzXxlGXV0PBvoR8rphU5qN uW8DWkhE9gglU3dMQo1YWfvmK Q9RSTmdI6mWU3kxcmqt4lkLOm uTNaqVDWyvjO7zoL8QBOuiCBx B4LkkX9iIINtQW3ezzfpz1inU LB1ZFqpLIJdJVG9CxCgLMCiy6 Vgima2XxTdx2QfoXPpJKrqW73 pf417YCEeawYqM7ehlUXpebxs uQSmeerkOEspqmF8VPKsMTKwH WluXGYxXGZzMjBcbGFuZzEwMz NcaGljaFxmMVxkYmNoXGYxXGx mA6oqAdWgS1CqAFTpBeNsfFIe QVdmlAK8ZTHvHVKmu57ukJx8T RHsxqwot5UiAQDjoZUtqUPkoZ 2gfxRfs9lnMLObAQDkNJGtJ6X xIIM2kDOtNAGioQErwMV6JK5n kaIrMD4aEOLcVnzpymVtsQIma nArDPQoAQxdh2lvQC0jFLVxvE axbA7ogLV4BORoq3zqlBUviCZ fe2jdg5XawzJiJWbrLWOoAUdc IIUoTEKoWZ7lTKLnbUVeadOvq 5Z6CkumcWUwbneaIjpewzR1OA ozzshnLGBwLYqjJ1daBpKfHRR hxFqnJzhif0YjMOOmKCCpEaey cGFyfX0= Clinical Information (test code = 5847107700) Lanre Bales is a 28 year old femaleHematemesis with nausea [K92.0]Coffee ground emesis [K92.0]Abdominal pain, epigastric [R10.13]1. gastric biopsy eval H pylori Gross Description (test code = 0521273856) z6cbyHTdQFOdoSBILMH2JPIzZ J4apDcqiUx6mSctSXVnepO8zI GvUFbzo6wiSAH9w9yewfILJvc gBKSsQZ7vZBezAYTsPP1iUxEj XGRlZmYxXHBhcGVydzEyMjQwX DVihTPcoDY6PCHmDW4uazrfSR xlPYieAUDvcpH4HTYolHKtY2D gOQJjHM3cdqvfOSF2TNGAUpjy Oq5fdTEcrZwoHbGzKjCvAPOaV XFcZBOcp6csvdIUokacpMf7dM 9ONDNoK3DgUP1Zs4fpAVUulES lMWQ8XIetj9ieYOodECN1SGLn KYYcHUJzCM1VIqQkZTK2UCh1U GLjJtI9PBj6KLQWKBCtUMU9OM Y1WaF7QMu1WZNdZR1aAJqfgRA pMQixQgdpKArdM183OEvkRCPg W8XoO0SgXIanNhNnDJqtAPHxN NCvXYbcWWWiH7RWUAMwZUK9LO B2LLEiGZb8CYl8EE1JJpLyZTK aWcb0AfT3VGToSPu9WDizUS5R UHXtTLT5RLnwJwWkFDVxIGZoJ Tx3BTUdWAqvrlSqWSjvSewcDG ieK84aeSDgCSOZMyalgSVwytm mczIwIFNQRUNJTUVOIEFcbHRy W8fsBaCiJoqcHAYyYNeeiELlL CANClxwbGFpblxsdHJjaFxmcz UsAUMbyQEQZVC6LM7pGJFTRys rwPTmRYTaZMzZfSEguF0luvUE HYimZUUiP0NlocFlMHqgKWSag w1mrMmvONwpKcIekGYuCEqpzC ldjRafQQMchTmjjsYeS7L1oqD wCY4uVHYRQWQyzO9nQKLtOXHs c4UavUJrjNxhR9BvxLNvMdAla K9ez7piS7F3DXsHZDQotgAxP3 3ct5kgsMEdr6ErUwB1PT6afSz wkxYiawCmF4UtYZRcx27pxHE0 uCMzoMFkLzGxB40oxtQfGAwkC dIhTP50NZVsWBceLEL5XUU9BR UsjYAty7nzsmpoUY56GIyuER9 0DRvuJU3pJWIlGBhhUAApS8Jv O6Q4PIavAZNtJGNdgKLwrH7fu eHeiaVtsTn2XMNeDGU1yQSahI aqWORwFtafhBT9UCAsNrPqqiD vt6TrkOd7nAAfSSvsISVxsE3d sJ3vQJNrPSUdurZGJkheNIIiB Hgee4TsSDfeuPmuWDLlWpDyWQ pNtAlrUXMLV8gbzWGhFWzkYEX GFBaMA8KTDK4TUIRbtBKUXWY9 EB1qXBhlRNYyH7BpH6BvvnE5j 6bzhQbab8QlzHEzKA6fdJMuYT 2NKVHqmgNrCXl6 Disclaimer (test code = 6023522385) x8cdqJQjQJCzq1jlXOQsrJEqY zEwMzNcZnRuYmpcdWMxIHtccn PcZUdsp8XwM5OoKzJqXGszsaB xCVFmGxwmuvdfTSUzFQH6uwDd YBPwHCefARUtZMtgMp5lxEKtz FauPyHbLHIsk8vbkuMEFOweFa ZtL692LYEkFMkiw2fkb7QnSKI jeTAvi5L9KLDMysexxBk4gTry M42mx9B7CjzyE8pfDCIpAFCmA 4YtOO4rTJWxOpf8OQG3WMZ3OJ PoIRAaZ0DwNZ8yBKVjuSHlFBz 3b6saqIctLIIwZAS3f8nsDTwj ewXlQC9kkt3noQw0i3axlzTzE YDtVEXjvLMEDYLjZ7XdmYbhPz 3gtWq2qIruRjczZYX6Kwj2AZ6 fzt88kab5yOecLIAdapwsIuR0 JQdmFRMsqbwwJNv7DVqdXIHwt ZN6RFOyfPJaP3TiHEXbIS8tuq d6ACF0UKqgGZVfPzY9BRRpcCP hBFGrqIpaWAdxf621TOZ4AmTu MD5gG5Eyj3P4fH5ujTOhBHEzg AQiOiIdXMVpzd3weDGsEVutb5 GjLIN5jcX8pMVtwBAzWPNvJJ6 7Tlwts9WcWsgjz3TxS18euWX0 WFurx9rfUM3yZnQ7ljJcZGrsr 1lfuM4xNhK9OApgJF9bEJ1uGR ZufU7uksvtLMQsXkBoxwdzDPP epGsisqJvBc8qpKidKSE7SSwe G2yqsK2lFdS5XWxnV1iuwA1uX Tn6PYhavNP2PPXcgX3gAN2zdr hwn2izDCbtVAyuPZVmbbN0oyM 9ROZotXUvU8FqtC6bWAWfGS3e wzvak4dnYBS0RIsvGJHwRTA5D gIrKZGbx3Ymnus2XfSsd9HjxN WxYQsaN13tm257BJCvqoPmW4u wbGFpblxwbGFpblxmMFxmczI0 JYJjfmZpp0MzYZDjRIJ8HPqpM ZcefMJlBTYzgIbzb3vqX1TaeK FyXHBsYWluXGYxXGZzMjBcbGF uZzEwMzNcaGljaFxmMVxkYmNo OBIeXLjmK4qxCmZxU1YiESNkT zAgpOYpG5ftPUkhfiHbSPAvpz IkyCL4CLgkC1w5QMZgzyBjpBg 9ykBmYoGzULElPXW9AVydvISj ARQcd4HtxhqonXLwWs3nnUWgB HBjfA7vLTZaQTRfMNjhXH2caQ a0EDFEpOKzxCTgIdZYEGVrJS9 0sbLhRPYJtrbsl3F9NIuuUOPu a6RaoUBdS1ucs2SsYFEmn00vJ Q7um7N4c0jzBRQ3TX8dr0PnMR FutQUdqXCuSRMgs1Pverfat9X qTZAlofBkh9UeLYRzwqTflFWg BZJgtmUxwa5tbvZcGFLdDMKyP 6JrgllboMropuFiRVHifd9yzt TrIGK2IDSIGWRcOXLar3WczI0 uyXWAEHJ0hLIvhu0bnjQFsNZv QIKiqt90LTUvRF2qL5ypGUXcP HWzibLmwJSgy8AnTFSjjSN3sH BtRE7TTkWGd30cVTWiEIXCwkW lTVGzjOuacON1oeV2bC8sRVyG REEpLlx+PTOlSECDDLHdTO7bh rFhv9DptiVddPdqLEOwhRMaa5 KefFNdo7KtaCcqt7LxkOXgpAS wQV9iEYVkjntiLUPmHHPEWcOC QKAhcyF5u9KaHQJfLUYhBQP0p Gtaclp8WNBhyW4vGUMgF9ceng xcRLivGFWcn9ActJ2qhKRUbOY dl0UicRXbpVWWzTIeJN1kcrQw LLcEFXpFOMS7pzNoOMFpo3YjI QeoI3fwL74sdOohyOi0nCY4RT X8fQ1lWjy+IFxwYXJccGFyIEF lxTLolWNvHIHqoAalagBbM6Yo vsCtwO8piMIwzsQsKG7gOH1eQ 3M9mVBcLYJfujHcz7ofCVrxrb PnQoFbtvLjTVJzZXohHTFif2X lWTjxPER9WQecfkFdzqFfaNRm mogcGRUXTXRWiWWnoHJtQWE2P ViwoeRkehYdJM9xiW0aeSbxgK 8ulLXdxXF6qnajWZVvVAKboKl tCQYlCZ4ulRgefK5sLcMeHhUq FTtfLE5eAJXpU7vvtYXcYJGlN LNcW2vuQjAqvJ5skJnxMMesAr JcZnMyMFxwYXJccGFyXHBsYWl uXGYxXGZzMjBcbGFuZzEwMzNc aGljaFxmMVxkYmNoXGYxXGxvY 6vlEoJaF4ZkEEAqEmDjgJNxV7 qsMVadZCA9IQXmYS0rvJInHY3 1xGCvs0txSGqndVjjnw4oH12j zDLfPJtrfSvnQXVeo84ur6PdR QZhvkIlnb3pLJZderZ5wG7wKO LzgAlxPKDdyJRmBJAmn7WdIXs naXRpemVkIGdsYXNzIHNsaWRl hvH5zyFlleGafjXhECSfbPqhE BAvl0WrYXZhHJisb0Vtrp4ptD ZfNMQmoeWEqTjgvAFbyG9mA3D pGBQvXUIvoo4eAFGczL6iLEda w3BiijylVEFcSRBfARCtzfOhx h1kDLUyfZWNGV4AHAffyRGke2 YubmKrO8mRNPO5SDCuIkReCox fKIUvpBZrzYHxZNBqto96FCWy yG7axMqyFGIkdX0vwO1kqMhlb K2gGdMeRcPmSQapZE5bBWSoZ5 cocXSvAPIkHSZlT1rbOoAcsB5 jaFxmMVxjZjJcZnMyMFxwYXJ9 fQ== Embedded Images (test code = 0360528585) [facility] [id number] 16:40:41EXAM: US OVARY TORSION HISTORY: 28 years-old Female; Provided indication: eval for torsion; pelvicpain; bilateral 5.1cm cysts seen on CT . LMP = 4Pregnancy test = Negative. TECHNIQUE: Transabdominal and transvaginal ultrasound imaging and colorDoppler evaluation of the pelvis was performed. Spectral Doppler evaluationof the ovaries was performed. Human Services Worker images were obtained for therecord. COMPARISON: Same [...] arevisualized. Normal flow is seen on color Doppler.[facility] ABDOMEN PELVIS W [id number] 14:33:00Indication: Nausea/vomiting ? Comparison: None RL: 4209 [...] soft tissue: No acute osseous abnormality is noted.[facility] CenterPregnancy Test, Ityli5161-64-36 11:59:46* Test Item Value Reference Range Interpretation Comme nts PREG SERUM (test code = 0547095972) Negative RUMA (test code = RUMA) Less than 10 IU/L. ?If low titer or ectopic is suspected, resubmit specimen in 48-72 hours. [facility]Complete Metabolic Zkbxe9069-63-95 11:58:40* Test Item Value Reference Range Interpretation Comme nts NA (test code = 3215573114) 138 mmol/L 135-145 K (test code = 0070451867) 3.5 mmol/L 3.5-5.0 CL (test code = 4674962794) 106 mmol/L 98-108 CO2 TOTAL (test code = 0379818327) 23 mmol/L 23-31 AGAP (test code = 5338254852) 9 2-16 BUN (test code = 1714254335) 6 mg/dL 7-23 L GLUCOSE (test code = 4271884663) 122 mg/dL 70-110 H CREATININE (test code = 2160-0) 0.61 mg/dL 0.50-1.04 TOTAL BILI (test code = 2361669660) 0.6 mg/dL 0.1-1.1 CALCIUM (test code = 7774598348) 9.0 mg/dL 8.6-10.6 T PROTEIN (test code = 4383952484) 8.1 g/dL 6.3-8.2 ALBUMIN (test code = 2829246355) 4.4 g/dL 3.5-5.0 ALK PHOS (test code = 7545731348) 85 U/L 34-122 ALTv (test code = 1742-6) 20 U/L 5-35 AST(SGOT) (test code = 6988760284) 19 U/L 13-40 eGFR (test code = 70313-0) 125.8 mL/min/1.73m2 CKD-EPI eGFR (2020). Assuming creatinine has been stable day-to-day for at least three months, the eGFR indicates Category G1 (>= 90 mL/min/1.73 m2) Lab Interpretation (test code = 26733-6) Abnormal [facility] CenterLip[facility], Oseuy8314-14-95 11:58:19* Test Item Value Reference Range Interpretation Comme nts LIPASE (test code = 2890050883) 40 U/L 0-220 Lab Interpretation (test cod e = 23145-0) Normal [facility]CBC with Jdywhgxpfpeq6127-64-32 11:41:57* Test Item Value Reference Range Interpretation [...] 32.8 g/dL 31.6-35.1 RDW-SD (test code = 64224-6) 51.3 fL 39.0-49.9 H RDW-CV (test code = 788-0) 13.7 % 12.0-15.5 PLT (test code = 777-3) 349 166-358 MPV (test code = 54639-0) 9.3 fL 9.5-12.9 L NRBC/100 WBC (test code = 9564239444) 0.0 0.0-10.0 NRBC x10^3 (test code = 7639104460) See_Comment [Automated messa ge] The system which generated this result transmitted reference range: 10*3/?L. The reference range was not used to interpret this result as normal/abnormal. GRAN MAT (NEUT) % (test code = 770-8) 73.3 % IMM GRAN % (test code = 5528925937) 0.40 % LYMPH % (test code = 736-9) 19.0 % MONO % (test code = 5905-5) 4.8 % EOS % (test code = 713-8) 2.0 % BASO % (test code = 706-2) 0.5 % GRAN MAT x10^3(ANC) (test code = 1543385518) 7.18 10*3/uL 1.88-7.09 H IMM GRAN x10^3 (test code = 2747925733) 0.04 10*3/uL 0.00-0.06 LYMPH x10^3 (test code = 731-0) 1.86 10*3/uL 1.32-3.29 MONO x10^3 (test code = 742-7) 0.47 10*3/uL 0.33-0.92 EOS x10^3 (test code = 711-2) 0.20 10*3/uL 0.03-0.39 BASO x10^3 (test code = 704-7) 0.05 10*3/uL 0.01-0.07 Lab Interpretation (test code = 99375-6) Abnormal [facility]. METABOLIC PANEL (65286)2023-11-08 17:45:25* Test Item Value Reference Range Interpretation Comme nts NA (test code = 5146383112) 136 mmol/L 135-145 K (test code = 3221744817) 3.1 mmol/L 3.5-5.0 L CL (test code = 6106152623) 105 mmol/L 98-108 CO2 TOTAL (test code = 2706240809) 21 mmol/L 23-31 L AGAP (test code = 1888902090) 10 2-16 BUN (test code = 9894757321) 12 mg/dL 7-23 GLUCOSE (test code = 1806749081) 92 mg/dL 70-110 CREATININE (test code = 2160-0) 0.57 mg/dL 0.50-1.04 TOTAL BILI (test code = 1475667408) 0.6 mg/dL 0.1-1.1 CALCIUM (test code = 0818290443) 9.0 mg/dL 8.6-10.6 T PROTEIN (test code = 0021250476) 8.0 g/dL 6.3-8.2 ALBUMIN (test code = 8011074977) 4.3 g/dL 3.5-5.0 ALK PHOS (test code = 1298612414) 81 U/L 34-122 ALTv (test code = 1742-6) 17 U/L 5-35 AST(SGOT) (test code = 1230279358) 45 U/L 13-40 H eGFR (test code = 10670-1) 127.9 mL/min/1.73m2 CKD-EPI eGFR (2020). Assuming creatinine has been stable day-to-day for at least three months, the eGFR indicates Category G1 (>= 90 mL/min/1.73 m2) Lab Interpretation (test code = 18194-2) Abnormal [facility]2024-[facility] 16:30:35* Test Item Value Reference Range Interpretation Comme nts LIPASE (test code = 8373728433) 53 U/L 0-220 Lab Interpretation (test cod e = 12208-9) Normal [facility] CenterCB WITH [id number] 16:15:57* Test Item Value Reference Range Interpretation [...] 33.1 g/dL 31.6-35.1 RDW-SD (test code = 85948-7) 50.1 fL 39.0-49.9 H RDW-CV (test code = 788-0) 13.8 % 12.0-15.5 PLT (test code = 777-3) 471 166-358 H MPV (test code = 45826-0) 9.2 fL 9.5-12.9 L NRBC/100 WBC (test code = 3951469697) 0.0 0.0-10.0 NRBC x10^3 (test code = 8467262301) See_Comment [Automated messa ge] The system which generated this result transmitted reference range: 10*3/?L. The reference range was not used to interpret this result as normal/abnormal. GRAN MAT (NEUT) % (test code = 770-8) 77.8 % IMM GRAN % (test code = 2944965875) 0.30 % LYMPH % (test code = 736-9) 16.7 % MONO % (test code = 5905-5) 4.7 % EOS % (test code = 713-8) 0.2 % BASO % (test code = 706-2) 0.3 % GRAN MAT x10^3(ANC) (test code = 3366069754) 9.31 10*3/uL 1.88-7.09 H IMM GRAN x10^3 (test code = 3660066682) 0.04 10*3/uL 0.00-0.06 LYMPH x10^3 (test code = 731-0) 1.99 10*3/uL 1.32-3.29 MONO x10^3 (test code = 742-7) 0.56 10*3/uL 0.33-0.92 EOS x10^3 (test code = 711-2) 0.03-0.39 L BASO x10^3 (test code = 704-7) 0.03 10*3/uL 0.01-0.07 Lab Interpretation (test code = 39154-9) Abnormal [facility] [id number] 16:01:00* Test Item Value Reference Range Interpretation Comme nts POCT PREG (test code = 1605) Negative On board controls acceptable with C Line (test code = 3574) Yes POCT PREG LOT # (test code = 3575) [id number] POCT PREG TEST DATE ( test code = 3576) 11-28-24 Lab Interpretation (test cod e = 24558-2) Normal [facility] [id number] 16:30:00* Test Item Value Reference Range Interpretation Comme nts POCT PREG (test code = 1605) Negative On board controls acceptable with C Line (test code = 3574) Yes POCT PREG LOT # (test code = 3575) [id number] POCT PREG TEST DATE ( test code = 3576) 03/28/2024 Lab Interpretation (test cod e = 55733-9) Normal [facility] [id number] 20:18:00* Test Item Value Reference Range Interpretation Comme nts POCT PREG (test code = 1605) Negative On board controls acceptable with C Line (test code = 3574) Yes POCT PREG LOT # (test code = 3575) POCT PREG TEST DATE ( test code = 3576) [facility] [id number] 20:18:00* Test Item Value Reference Range Interpretation Comme nts POCT PREG (test code = 1605) Negative On board controls acceptable with C Line (test code = 3574) Yes POCT PREG LOT # (test code = 3575) POCT PREG TEST DATE ( test code = 3576) [facility] ROMEO STOUT - [id number] 04:42:10* Test Item Value Reference Range Interpretation Comme nts RPR (Qualitative) (test code = 42872-3) Nonreactive Nonreactive Lab Interpretation (test cod e = 18050-9) [facility] Surface [id number] 17:49:35 * Test Item Value Reference Range Interpretation Comme nts HBsAg Semi-Quantitative (mesha t code = 5195-3) Negative Negative [facility] WITH [id number] 12:19:16* Test Item Value Reference Range Interpretation Comme nts HIV Semi-quantitative (test code = 93701-6) Negative Negative RUMA (test code = RUMA) Non-reactive for HIV-1 antigen and HIV-1/HIV-2 antibodies. ?No laboratory evidence of HIV infection. ?Repeat in 2-4 weeks if acute HIV infection is suspected. [facility]. METABOLIC PANEL (09506)2021-11-26 11:29:08* Test Item Value Reference Range Interpretation Comme nts NA (test code = 7714541393) 137 mmol/L 135-145 K (test code = 0598658399) 3.6 mmol/L 3.5-5 CL (test code = 2613166754) 105 mmol/L 98-108 CO2 TOTAL (test code = 3380254287) 21 mmol/L 23-31 L AGAP (test code = 9105147296) 2-16 BUN (test code = 5310367836) 4 mg/dL 7-23 L GLUCOSE (test code = 9221183603) 93 mg/dL 70-110 CREATININE (test code = 8436221941) 0.49 mg/dL 0.5-1.04 L TOTAL BILI (test code = 1475613041) 0.2 mg/dL 0.1-1.1 CALCIUM (test code = 3997768943) 9.0 mg/dL 8.6-10.6 T PROTEIN (test code = 8268493051) 6.9 g/dL 6.3-8.2 ALBUMIN (test code = 7898921804) 3.7 g/dL 3.5-5 ALK PHOS (test code = 9810676331) 169 U/L 34-122 H ALTv (test code = 1742-6) 15 U/L 5-35 AST(SGOT) (test code = 0395551473) 23 U/L 13-40 eGFR (test code = 7711627784) mL/min/1.73m2 RUMA (test code = RUMA) Association [...] imaging tests). Lab Interpretation (test code = 28144-2) [facility] [id number] 11:28:48* Test Item Value Reference Range Interpretation Comme [facility] URIC ACID (test code = 6986865808) 3.4 mg/dL 2.9-6 Lab Interpretation (test cod e = 98164-4) Normal [facility] CenterLACTATE [id number] 11:24:10* Test Item Value Reference Range Interpretation Comme nts LDH (test code = 4894713676) 216 U/L 120-246 Lab Interpretation (test cod e = 39239-0) [facility] - ONCE [id number] 10:30:18 * Test Item Value Reference Range Interpretation Comme nts ABO & RH (test code = 20) O Positive Performed at [facility] Laboratory Services - [facility] Blood [address] [place] [address]Eyqb Free: [phone] No. [id number] IAT (test code = 1185) Negative Performed at [facility] Laboratory Services - [facility] Blood [address] [place], [place] [id number] Free: [phone] No. [id number] [facility] with [id number] 09:46:38* Test Item Value Reference Range Interpretation [...] 34.9 g/dL 31.6-35.1 RDW-SD (test code = 30424-8) 40.9 fL 39-49.9 RDW-CV (test code = 788-0) 12.2 % 12-15.5 PLT (test code = 777-3) See_Comment [Automated messa ge] The system which generated this result transmitted reference range: 166 - 358 10*3/?L. The reference range was not used to interpret this result as normal/abnormal. MPV (test code = 53333-8) 9.9 fL 9.5-12.9 NRBC/100 WBC (test code = 6591331840) See_Comment [Automated me ssage] The system which generated this result transmitted reference range: 0.0 - 10.0 /100 WBCs. The reference range was not used to interpret this result as normal/abnormal. NRBC x10^3 (test code = 0912704087) See_Comment [Automated messa ge] The system which generated this result transmitted reference range: 10*3/?L. The reference range was not used to interpret this result as normal/abnormal. GRAN MAT (NEUT) % (test code = 770-8) 70.4 % IMM GRAN % (test code = 6842333163) 0.70 % LYMPH % (test code = 736-9) 20.1 % MONO % (test code = 5905-5) 6.0 % EOS % (test code = 713-8) 2.5 % BASO % (test code = 706-2) 0.3 % GRAN MAT x10^3(ANC) (test code = 6771862094) 8.92 10*3/uL 1.88-7.09 H IMM GRAN x10^3 (test code = 4469761022) 0.09 10*3/uL 0-0.06 H LYMPH x10^3 (test code = 731-0) 2.55 10*3/uL 1.32-3.29 MONO x10^3 (test code = 742-7) 0.76 10*3/uL 0.33-0.92 EOS x10^3 (test code = 711-2) 0.32 10*3/uL 0.03-0.39 BASO x10^3 (test code = 704-7) 0.04 10*3/uL 0.01-0.07 Lab Interpretation (test code = 07129-6) Abnormal [facility] URINALYSIS W SPECIFIC [id number] 14:56:00* Test Item Value Reference Range Interpretation [...] 3267) [facility] URINALYSIS W SPECIFIC [id number] 14:56:00* Test Item Value Reference Range Interpretation [...] 3267) [facility] URINALYSIS W SPECIFIC [id number] 14:58:00* Test Item Value Reference Range Interpretation [...] 3267) [facility] URINALYSIS W SPECIFIC [id number] 14:58:00* Test Item Value Reference Range Interpretation [...] code = 3261) . Negative - Negat edstini POCT U BLD (test code = 3257) . Negative - Negati ve POCT U COLOR (test code = 3266) POCT U APPEAR (test code = 3267) [facility] URINALYSIS W SPECIFIC [id number] 14:58:00* Test Item Value Reference Range Interpretation [...] 3267) [facility] URINALYSIS W SPECIFIC [id number] 14:58:00* Test Item Value Reference Range Interpretation [...] 3267) [facility] URINALYSIS W SPECIFIC [id number] 14:58:00* Test Item Value Reference Range Interpretation [...] 3267) [facility] URINALYSIS W SPECIFIC [id number] 18:21:00* Test Item Value Reference Range Interpretation [...] POCT U APPEAR (test code = 3267) [facility] History and Physical Notes Date/Time Note Provider Source 2024-01-29 09:03:32 Patient seen and examined in the preop/DSU area. No changes in history and physical from our note below. -OR today for laparoscopic cholecystectomy -NPO past midnight -Surgical consent signed Kiko Belcher MD 01/29/2024 9:03 AM PGY4, General Surgery DIAL READING TEACHER Associated attestation - Eva Bryan MD - 01/29/2024 10:25 AM REMEDIAL READING TEACHER Attending Attestation: I personally evaluated and examined [...] Eva Bryan MD - 01/07/2024 11:15 AM REMEDIAL READING TEACHER Images from the original note were not included. GENERAL SURGERY CLINIC NOTE Reason for Visit / Chief Complaint: Abdominal pain, gallstones History of Present Illness: Lanre Bales is a 28 year old female with PMHx as below who presents for evaluation of abdominal pain and gallstones. She was seen at [facility] ED in 11/08/2023 for vomiting. Work up [...] with nausea and vomiting and presented to [facility] on 01/01/2024. An US was obtained [...] mother and child, FOB involved. Temple preference: [employer]. Has one cat, educated about diego litter [...] min Stress: No Stress Concern Present (12/19/2022) [employer] - Occupational Stress Questionnaire [...] othopnea, claudication, edema, coronary artery disease/history of OR Respiratory: Cough, sputum production, hemoptysis, wheezing, shortness [...] consent obtained. Eva Bryan M.D. 01/07/2024 14:58 [facility] Notes Date/Time Note Provider Source 2024-03-31 12:10:42 1. Class 3 severe obesity due to excess calories with serious comorbidity and body mass index (BMI) of 50.0 to 59.9 in adult - phentermine-topiramate (QSYMIA) 3.75-23 mg per capsule; Take 1 capsule by mouth in the morning for 14 days. Dispense: 14 capsule; Refill: 0 - phentermine-topiramate (QSYMIA) 7.5-46 mg per capsule; Take 1 capsule by mouth in the morning. Start 3.75mg qAM x 14 days; then increase to 7.5mg qAM. Dispense: 30 capsule; Refill: 0 [facility] 2024-03-28 15:19:14 Images from the original note were not included. Refill request refilled per ambulatory refill guidelines. Notes: pantoprazole 40 mg EC tablet Sig: Take 1 tablet by mouth in the morning. Disp: 90 tablet Refills: 0 Start: 03/28/2024 Class: eRX For: Gastroesophageal reflux disease without esophagitis Last ordered: 4 months ago (11/19/2023) by Jess Munson MD Gastroenterology: Antiulcer - Proton Pump Inhibitors [id number]/28/2024 12:22 PM Protocol Details Valid encounter within last 12 months To be filled at: [facility] - [place], [place] - [address] [place] [address] Last Refilled: 01/2024 Recent Visits Date Type Provider Dept 03/27/24 Appointment Jess Munson MD [facility] 02/27/24 Office Visit Jess Munson MD [facility] 01/03/24 Office Visit Jess Munson MD [facility] 11/19/23 Office Visit Jess Munson MD [facility] 08/06/23 Office Visit Jess Munson MD [facility] 01/24/23 Office Visit Jess Munson MD [facility] 12/25/22 Office Visit Jess Munson MD [facility] Showing recent visits within past 540 days with a meds authorizing provider and meeting all other requirements Future Appointments Date Type Provider Dept 05/28/24 Appointment Jess Munson MD [facility] Showing future appointments within next 150 days with a meds authorizing provider and meeting all other requirements DIAL READING TEACHER Dhara Corral MA [facility] 2024-03-28 13:09:22 Images from the original note were not included. Routed to provider for review. Unable to refill per ambulatory refill guidelines. Notes: zolpidem 5 mg tablet Sig: Take 1 tablet by mouth at bedtime as needed for Insomnia. Disp: 30 tablet Refills: 0 Start: 03/28/2024 Class: eRX PDMP Review May Be Needed For: Primary insomnia Last ordered: 1 month ago (02/27/2024) by Jess Munson MD Provider Review Required Wthtbx5703/28/2024 09:36 AM Protocol Details This refill cannot be delegated Valid encounter within last 12 months To be filled at: [facility] - [place], [place] - [address] Last Refilled: 02/27/24 Recent Visits Date Type Provider Dept 03/27/24 Appointment Jess Munson MD [facility] 02/27/24 Office Visit Jess Munson MD [facility] 01/03/24 Office Visit Jess Munson MD [facility] 11/19/23 Office Visit Jess Munson MD [facility] 08/06/23 Office Visit Jess Munson MD [facility] 01/24/23 Office Visit Jess Munson MD [facility] 12/25/22 Office Visit Jess Munson MD [facility] Showing recent visits within past 540 days with a meds authorizing provider and meeting all other requirements Future Appointments Date Type Provider Dept 05/28/24 Appointment Jess Munson MD [facility] Showing future appointments within next 150 days with a meds authorizing provider and meeting all other requirements E Corral MA [facility] 2024-03-26 10:41:39 PA has been completed via Cover My Meds. E Thomason RN [facility] 2024-03-26 08:53:46 Summary: Prior Authorization Request Images from the original note were not included. E Gray [facility] 2024-03-18 08:12:42 Pt is active on [employer], message has been sent. E Thomason RN [facility] 2024-03-18 08:03:48 Currently Qysmia which is not covered by patient insurance is the one approved salvage determiner . Every other regimen will be an off label use. Phentermine is approved for 3 months use only which patient has already tried. [facility] 2024-03-17 14:54:51 Call placed to pt, Pt states her Qysmia was not approved and would like refill on phentermine, Last Refilled: 01/28/2024 Recent Visits Date Type Provider Dept 02/27/24 Office Visit Jess Munson MD [facility] 01/03/24 Office Visit Jess Munson MD [facility] 11/19/23 Office Visit Jess Munson MD [facility] 08/06/23 Office Visit Jess Munson MD [facility] 01/24/23 Office Visit Jess Munson MD [facility] 12/25/22 Office Visit Jess Munson MD [facility] Showing recent visits within past 540 days with a meds authorizing provider and meeting all other requirements Future Appointments Date Type Provider Dept 05/28/24 Appointment Jess Munson MD [facility] Showing future appointments within next 150 days with a meds authorizing provider and meeting all other requirements Tiff Thomason RN [facility] 2024-03-17 14:15:48 Lanre Bales is a 28 year old female and the pt is calling to request another call from the PCP about the following medication phentermine-topiramate 3.75-23 mg per capsule Callback#:[phone] Please contact and advise. E Helen Whitley [facility] 2024-03-16 02:32:09 Pt given printed and verbal discharge instructions regarding tooth pain. Prescriptions provided. Discussed antibiotic therapy and to take until all completed unless adverse reaction occurs - if occurs, discontinue medication and follow up with pcp/seek medical attention Pt verbalized understanding of instructions, pt awake alert oriented, resp reg unlabored, skin w/d, color appropriate for race, moves all ext well,pt encouraged to follow up with pcp and dentist. Advised to seek medical attention for new/prolonged/worsening of symptoms. No adverse reaction to meds given in ER noted upon discharge. Awake, alert oriented, resp reg unlabored, skin w/d, pt leaving amb with steady gait, in no apparent distress. DIAL READING TEACHER [facility] 2024-03-16 02:16:26 Pt arrives ambulatory to ED c/o tooth pain that has been worsening over the last couple of days. E Trivedi RN [facility] 2024-03-10 09:40:47 Patient will call back later, she is going to call her insurance to check if Qysmia will be covered. Patient will call back later. E Corrales MA [facility] 2024-03-10 09:02:20 Images from the original note were not included. Requested Renewals phentermine-topiramate 3.75-23 mg per capsule Possible duplicate: Hover to review recent actions on this medication Sig: Take 1 capsule by mouth in the morning. Disp: 7 capsule Refills: 0 Start: 03/10/2024 Class: eRX PDMP Review May Be Needed Non-formulary For: Class 3 severe obesity due to excess calories with serious comorbidity and body mass index (BMI) of 50.0 to 59.9 in adult Last ordered: 5 days ago (03/05/2024) by Jess Munson MD Provider Review Required [id number]/10/2024 09:01 AM Protocol Details This refill cannot be delegated Valid encounter within last 12 months To be filled at: [facility] [address] [place] [address] 02-26-2023 NOV 05-28-2024 DIAL READING TEACHER Sabi Corrales MA [facility] 2024-03-10 09:01:24 Images from the original note were not included. [facility] 2024-03-08 10:27:35 Was phentermine topiramate covered [facility] 2024-03-07 08:57:47 Noted, routing to provider for review. E Corrales MA [facility] 2024-03-07 08:02:29 Images from the original note were not included. E Malik [facility] 2024-03-06 09:29:10 Referral has been placed with OV notes attached. E Thomason RN [facility] 2024-03-05 15:54:06 Images from the original note were not included. 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 Class 3 severe obesity due to excess calories with serious comorbidity and body mass index (BMI) of 50.0 to 59.9 in adult Most of the others are not covered Sent the generic form of qysmia, if not covered then can do it individually - phentermine-topiramate 3.75-23 mg per capsule; Take 1 capsule by mouth in the morning for 7 days. Dispense: 7 capsule; Refill: 0 - phentermine-topiramate 3.75-23 mg per capsule; Take 1 capsule by mouth in the morning for 7 days. Dispense: 7 capsule; Refill: 0 Will see if zepound is covered - tirzepatide 2.5 mg/0.5 mL subcutaneous injection pen; inject 2.5 mg under the skin weekly. Start 2.5mg qWeek x 4 Weeks, then increase to 5mg qWeek x 4 Weeks, then increase to 7.5mg qWeek x 4 Weeks, the increase to 10mg qWeek. Dispense: 2 mL; Refill: 0 - tirzepatide, weight loss, 5 mg/0.5 mL subcutaneous injection; After 2.5mg qWeek x 4 Weeks, then increase to 5mg qWeek Dispense: 2 mL; Refill: 2 [facility] 2024-03-05 08:12:01 Can send the phentermine differently and topiramate differently [facility] 2024-03-04 14:44:11 Authorization completed, insurance will cover it. [employer] message sent to patient. Abbey Goel MA 03/04/2024 2:45 PM E Goel MA [facility] 2024-03-04 14:23:22 Patient is requesting a prior authorization for phentermine-topiramate (QSYMIA) 3.75-23 mg per capsule E Escobedo [facility] 2024-03-03 16:59:33 PA was denied for this medication. Pt was notified. E Thomason RN [facility] 2024-03-03 11:11:56 Lanre Bales is a 28 year old female Alla with [employer] called and states that the submitted claim is not matching prior authorization. She is requesting for clinic to get with insurance to correct. Please advise. E Mcclain [facility] 2024-02-29 08:26:23 Medication not covered by insurance, will notify the provider to determine if other weight loss medications were discussed. Abbey Goel MA 02/29/2024 8:29 AM E Goel MA [facility] 2024-02-28 16:38:02 Images from the original note were not included. E Malik [facility] 2024-02-28 13:24:10 Medicine changed to qysmia [facility] 2024-02-28 08:35:57 Images from the original note were not included. E Malik [facility] 2024-02-27 15:54:17 PA has been submitted via Cover My Meds with OV note attached, [employer] message sent to pt. DIAL READING TEACHER Tiff Thomason RN [facility] 2024-02-27 15:14:43 Patient is requesting a prior authorization for phentermine-topiramate (QSYMIA) 3.75-23 mg per capsule E Escobedo [facility] 2024-02-22 13:46:42 Images from the original note were not included. Results received from [facility]' scanned in folder and placed in provider basket for review. E Malik [facility] 2024-02-22 02:57:27 Pt given printed and verbal discharge instructions regarding vomiting & diarrhea, & bladder infections in women, encouraged hydration. Prescriptions provided Discussed antibiotic therapy and to take until all completed unless adverse reaction occurs - if occurs, discontinue medication and follow up with pcp/seek medical attention Pt verbalized understanding of instructions, pt awake alert oriented, resp reg unlabored, skin w/d, color appropriate for race, moves all ext well,pt encouraged to follow up with pcp & [facility]. Advised to seek medical attention for new/prolonged/worsening of symptoms. No adverse reaction to meds given in ER noted upon discharge. PIV d'cd, dressing to site, catheter in tact. Awake, alert oriented, resp reg unlabored, skin w/d, pt leaving amb with steady gait, in no apparent distress. E Trivedi RN [facility] 2024-02-22 02:16:49 Ice chips given E Moody RN [facility] 2024-02-22 01:38:[address] Connected to blood pressure and pulse ox. Call light in reach. IV bolus infusing. [facility] 2024-02-22 00:45:05 Patient urinating, able to walk to bathroom independently E Duval RN [facility] 2024-02-22 00:29:[address] is waiting for urine to continue treatment. Pt stated she was on her period. Explained to pt that we hand to have a documented negative test to proceed with CT and her further cared is being delayed until we get urine. Pt verbalized understanding and said she would try in a few minutes. [facility] 2024-02-22 00:08:00 Patient states she does not need to urinate at this time and not wanting to try. [facility] 2024-02-21 23:49:50 Has had vomiting and diarrhea x 2 days. Has lap claire 3 weeks ago. C/O generalized abdominal pain. [facility] 2024-02-21 23:42:00 I personally examined the patient on 02/22/2024 and agree with Marisa's [place] note with the following addition(s): CTAP-neg. Acute, known ovarian cyst . I actively participated in the decision-making process. Please see the Midlevel Provider's note for additional details. Curt Curry MD 02/22/24 0242 [employer] EMERGENCY PHYSICIAN STAFF [facility] 2024-02-21 08:15:34 Radiology report from [facility], will print & place on providers basket DIAL READING TEACHER Bernarda Rudolph [facility] 2024-02-15 08:10:47 Please schedule follow up appointment for next Sunday [facility] 2024-02-14 08:54:37 Images from the original note were not included. Attempted to contact patient several times using the numbers on file and continue getting the busy signal. [employer] message sent at this time with providers recommendations. [facility] 2024-02-14 08:44:25 Closing this telephone encounter as this has been addressed in another telephone encounter 02/11/24. [facility] 2024-02-13 08:57:47 I previously recommended an evaluation in the ED as pain this severe 15 days post surgery is not common. Given that all findings during her evaluation were within normal limits, I recommend a pain regimen of scheduled 1000 g Tylenol every 8 hours and 800 grams ibuprofen every 8 hours. I do not prescribe narcotics this far from surgery as they are rarely indicated if the above pain regimen is followed. Charley Posadas MD 02/13/2024 8:59 AM Colon and Rectal Surgery DIAL READING TEACHER [facility] 2024-02-11 14:23:37 Patient returned call stating she is having a lot of pain, denies any fever, swelling, drainage from surgical sites. Patient had cholecystectomy on 01/29/24. Patient states she went to [facility] ER last night and had imaging and labs which showed no issues. Patient states she was informed she only needed to take 1 day off of work after her surgery. 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 Patient has a 2 year old and cannot afford to take time off but that she has been attempting to not lift over 10lbs. Patient is on Medicaid and requesting refill of Ibuprofen and or something a little stronger for break through pain, patient states she had success with Tramadol. [facility] [place]. Please advise. Rosalee Perez RN [facility] 2024-02-11 13:16:52 Patient has been calling since 02/07/24 regarding pain post cholecystectomy that was preformed 01/29/24. Per messages patient no longer has pain medication, is using Tylenol without relief. Patient called up to office today. PSS placed patient on hold to make RN aware of assessment call, when PSS went back to phone to transfer patient, patient had hung up. PSS mentioned that patient stated she was recently seen in ER r/t her pain and there are [employer] messages stating as such. Attempted to contact patient at [phone] and via her emergency contact [phone]. Have called both numbers several times, only get a busy signal for both numbers. Responded to [employer] messages requesting patient contact the office and informed patient via MyChart message that [employer] messages are not answered immediately and all urgent needs should be called to office. PSS please have staff address phone call RACHAEL if patient calls back. Thank you. DIAL READING TEACHER [facility] 2024-02-11 13:07:38 Patient has been calling since 02/07/24 regarding pain post cholecystectomy that was preformed 01/29/24. Per messages patient no longer has pain medication, is using Tylenol without relief. Patient called up to office today. PSS placed patient on hold to make RN aware of assessment call, when PSS went back to phone to transfer patient, patient had hung up. PSS mentioned that patient stated she was recently seen in ER r/t her pain and there are [employer] messages stating as such. Attempted to contact patient at [phone] and via her emergency contact [phone]. Have called both numbers several times, only get a busy signal for both numbers. Responded to [employer] messages requesting patient contact the office and informed patient via [employer] message that [employer] messages are not answered immediately and all urgent needs should be called to office. PSS please have staff address phone call RACHAEL if patient calls back. Thank you. E Perez RN [facility] 2024-02-11 12:40:42 Images from the original note were not included. Routed to provider for review. Unable to refill per ambulatory refill guidelines. Notes: ibuprofen 800 mg tablet Sig: Take 1 tablet by mouth every 6 (six) hours. Disp: 28 tablet Refills: 0 Start: 02/11/2024 Class: eRX For: Gallbladder sludge Last ordered: 1 week ago (01/29/2024) by Kiko Belcher MD Patient comment: In a lot of pain to be two weeks out. Went to ER, they said there were no irregularities and to reach out to Dr if pain is too much. Analgesics: NSAIDS Qrzmju0402/11/2024 12:28 PM Protocol Details Valid encounter within last 12 months Cr in normal range and within 360 days HYDROcodone-acetaminophen 5-325 mg tablet Sig: Take 1 tablet by mouth every 6 (six) hours as needed for Pain (scale 7-10). Indications: acute pain Disp: 28 tablet Refills: 0 Start: 02/11/2024 Earliest Fill Date: 02/11/2024 Class: eRX PDMP Needs Review For: Gallbladder sludge; Abdominal pain, epigastric Last ordered: 1 week ago (01/29/2024) by Eva Bryan MD Controlled Substance Ckbcmd9202/11/2024 12:28 PM Protocol Details Valid encounter within last 3 months Pain agreement on file This refill cannot be delegated To be filled at: [facility] [address] [place] [address] Last Refilled: 01/29/24 Recent Visits Date Type Provider Dept 01/03/24 Office Visit Jess Munson MD [facility] 11/19/23 Office Visit Jess Munson MD [facility] 08/06/23 Office Visit Jess Munson MD [facility] 01/24/23 Office Visit Jess Munson MD [facility] 12/25/22 Office Visit Jess Munson MD [facility] Showing recent visits within past 540 days with a meds authorizing provider and meeting all other requirements Future Appointments Date Type Provider Dept 02/27/24 Appointment ObJess Ramesh MD [facility] Showing future appointments within next 150 days with a meds authorizing provider and meeting all other requirements Dhara Corral MA [facility] 2024-02-08 16:24:36 Attempted to contact patient using both numbers on file and continue getting the busy signal. [facility] 2024-02-08 14:53:13 Images from the original note were not included. Attempted to contact patient using both numbers on file and continue to get the busy signal. [facility] 2024-02-08 14:39:49 Given severity of pain, and if having any associated symptoms, such as fever, inability to eat, nausea, vomiting, she should either come to clinic this afternoon to see Villafuerte or return to the ED for bloodwork and imaging. Charley Posadas MD 02/08/2024 2:42 PM Colon and Rectal Surgery CRS-COLON & RECTAL SURGERY STAFF [facility] 2024-02-08 14:27:41 Images from the original note were not included. Patient returned call, c/o pain under her breast when lying on the right side. States breathing is painful and the left side doesn't hurt as bad as the right side. Patient is s/p laparoscopic cholecystectomy. Patient states, "My mother had the same surgery with the same symptoms and they found a blood clot so I'm worried." Patient states she will report to the ED if symptoms continue to get worse. Please advise. [facility] 2024-02-08 14:24:06 Telephone encounter created 02/08/24 regarding patient's symptoms. [facility] 2024-02-08 13:26:14 Attempted to contact patient but continue to get busy signal. Will route to Dr Posadas for recommendations as Bryan is [place] Debbie Frias RN [facility] 2024-02-08 11:46:35 Summary: Pain Medication Request s/p Lap Claire 01/28 I attempted to call pt to further access her symptoms and phone was busy. Unable to reach pt. I will try again over the phone and also respond to her MyChart message to get more information. DIAL READING TEACHER Carlota Wyman MA [facility] 2024-02-04 15:18:33 Patient notified. E Rolon RN [facility] 2024-02-04 14:39:44 She may resume phentermine 6 weeks following surgery [facility] 2024-01-31 08:09:22 Called number on file; no answer; message left to return call to clinic. E Rolon RN [facility] 2024-01-30 13:05:31 Pt had SX 01/28 and would like to know if she can resme taking Phentermine pilss. Please Assist E Magallanes [facility] 2024-01-28 09:50:30 Images from the original note were not included. Requested Renewals phentermine 37.5 mg tablet Sig: Take 1 tablet by mouth daily with breakfast. Disp: 30 tablet Refills: 0 Start: 01/25/2024 Class: eRX PDMP Needs Review Non-formulary For: Class 3 severe obesity due to excess calories with serious comorbidity and body mass index (BMI) of 50.0 to 59.9 in adult Last ordered: 1 month ago (12/27/2023) by Jess Munson MD Off-Protocol Vchcck5701/25/2024 06:41 PM Protocol Details Medication not assigned to a protocol, forward to provider. Valid encounter within last 12 months zolpidem 5 mg tablet Sig: Take 1 tablet by mouth at bedtime as needed for Insomnia. Disp: 30 tablet Refills: 0 Start: 01/25/2024 Class: eRX PDMP Needs Review For: Primary insomnia Last ordered: 1 month ago (12/27/2023) by Jess Munson MD Provider Review Required Llyddn2701/25/2024 06:41 PM Protocol Details This refill cannot be delegated Valid encounter within last 12 months ondansetron 8 mg tablet Possible duplicate: Hover to review recent actions on this medication Sig: Take 1 tablet by mouth every 8 (eight) hours as needed for Nausea and Vomiting (N/V). Disp: 24 tablet Refills: 0 Start: 01/25/2024 Class: eRX For: Nausea and vomiting, unspecified vomiting type Last ordered: 2 weeks ago (01/11/2024) by Jess Munson MD Patient comment: Surgery thesday, still dealing with daily nausea. Vomiting in mornings before meds kick in. Anti-nausea Gveevt8501/25/2024 06:41 PM Protocol Details This refill cannot be delegated Manual Review: Women's Health providers only allowed to refill requests. Valid encounter within last 12 months To be filled at: [facility] [address] [place] [address] 01-03-2024 NOV 02-27-2024 DIAL READING TEACHER Sabi Corrales MA [facility] 2024-01-21 15:14:50 Images from the original note were not included. Your procedure is at [facility] on 01/29/24. The address is [address] [place] [address], [id number]. [facility] nursing staff will call you the workday before your procedure to let you know what time to arrive.On the day of your procedure, please go inside that door and check in at the desk. Please note: You may not travel home alone and that includes in a taxi or by bus. We must speak to your Responsible Adult (who will be picking you up) the morning of your procedure, before the start of your procedure. This person must be an adult over the age of 18 years of age. Do not eat any solid food after midnight the night before surgery. You may have sips of clear liquids such as water, gatorade, and sprite up until two hours before your scheduled procedure. You may take your medications with a sip of water as directed by physician. Anticoagulants will be per physician guidance. Medication Note(s)/Instructions: The patient stated she was given instructions to hold Phentermine 01/18/24 and Vitamin D prior to procedure by Dr. Bryan. The patient was also instructed to hold other medications until after the procedure. The patient was educated on medication and procedure. Teach-back method repeated and confirmed. There are no pre-op orders for labs or further testing at this time. Understanding was verbalized, with no questions or concerns at this time. The patient was informed that they would receive a call between 12-3pm the day before the procedure for arrival time. COVID SCREENING NOTE: Denies COVID OR FLU-LIKE symptoms at this time, no testing required. [facility] 2024-01-12 05:46:05 Awake, alert oriented X4, respiratory even and unlabored,skin w/d color appropriate for race, moves all ext well, pt encouraged to follow up with pcp and or return as needed Pt given printed and verbal discharge instructions regarding Right Upper quadrant abdominal pain, Gallbladder sludge, uncontrolled hypertension , patient verbralized understanding and signature obtained, patient denies any other concerns. Prescriptions provided Discussed tramadol/phenergan/Tylenol # 3 side affects and to avoid driving/operating machinery/or engaging in activities requiring alertness while taking. Advised to seek medical attention for new/prolonged/worsening of symptoms, No adverse reaction to meds given in ER noted upon discharge Pt taken to [facility] via wheelchair. E Amin RN [facility] 2024-01-12 04:56:14 Pt's boyfriend left phone # [phone] [facility] 2024-01-12 03:57:23 Patient arrived to ED c/o vomiting for two days. Hx of gallbladder issues. Sees Dr. Bryan. No medications taken GEEK SQUAD MANAGER. [facility] 2024-01-11 12:44:39 1. Nausea and vomiting, unspecified vomiting type To Defer to GI for further questions - ondansetron 8 mg tablet; Take 1 tablet by mouth every 8 (eight) hours as needed for Nausea and Vomiting (N/V). Dispense: 24 tablet; Refill: 0 [facility] 2024-01-10 16:32:15 Forwarding to provider. [facility] 2024-01-02 08:00:08 Images from the original note were not included. Medical record received from [facility] scanned in folder and placed in provider basket for review. Rossana Malik [facility] 2023-12-25 13:55:45 Images from the original note [...] ago (11/19/2023) by Jess Munson MD Off-Protocol Eouabn0112/25/2023 01:50 PM Protocol Details Medication not assigned to a protocol, forward to provider. Valid encounter within last 12 months zolpidem 5 mg tablet Sig: Take 1 tablet by mouth at bedtime as needed for Insomnia. Disp: 30 tablet Refills: 0 Start: 12/25/2023 Class: eRX PDMP Needs Review For: Primary insomnia Last ordered: 1 month ago (11/19/2023) by Jess Munson MD Provider Review Required Vjopaw6112/25/2023 01:50 PM Protocol Details This refill cannot be delegated Valid encounter within last 12 months To be filled at: [facility] [address] [place] [address] 11-19-2023 [facility] 02-27-2024 DIAL READING TEACHER Sabi Corrales MA [facility] 2023-12-25 10:29:31 Please review patients request for ondansetron 4 mg dissolvable tablet instead of the prescribed ondansetron 4 mg tablet. Please advise, thank you. DIAL READING TEACHER Zuleima Duarte LVN [facility] 2023-12-18 11:14:17 Noted Abbey Goel MA 12/18/2023 11:14 AM Abbey Goel MA [facility] 2023-12-18 09:36:32 Pt opted for appt today Anaya Andrews [facility] 2023-12-18 09:30:12 Lanre Bales is a 28 year old female Calling in wanting to know if PCP can prescribe proMETHazine 25 mg tablet If not pt would like to be advised on what to do to manage symptoms before her endoscopy Please advise [facility] 2023-12-18 09:17:17 Pt is returning clinic call. Karina Mcclain [facility] 2023-12-17 10:33:58 Routing to provider for review as office has not sent in Rx before. Recent Visits Date Type Provider Dept 11/19/23 Office Visit Jess Munson MD [facility] 08/06/23 Office Visit Jess Munson MD [facility] 01/24/23 Office Visit Jess Munson MD [facility] 12/25/22 Office Visit Jess Munson MD [facility] Showing recent visits within past 540 days with a meds authorizing provider and meeting all other requirements Future Appointments Date Type Provider Dept 02/27/24 Appointment Jess Munson MD [facility] Showing future appointments within next 150 days with a meds authorizing provider and meeting all other requirements Tiff Thomason RN [facility] 2023-12-17 10:29:18 Pt states she is having a gastritis flare as of last night. Pt said she has vomited a few times. She would like a prescription sent in for nausea. She said she does not want to go to the ER because she has her son. Please Advise. [facility] [address] [place] [id number] Alberta Ashraf [facility] 2023-12-11 14:03:58 Patient returned my call. Patient [...] with arrival time. Pre op call complete. ÍGUEZT Jill Brown RN [facility] 2023-12-11 10:09:05 Left a message to remind [...] medications. Prep and medication instructions sent via [employer] & email: [email or web address] [facility] 2023-12-07 09:25:56 Images from the original note [...] Ordoñez NP Last refill: 09/05/2023 Rx #: [id number] Psychiatry: Antidepressants Agoayt0312/07/2023 12:36 AM Protocol Details Manual Review: Verify no changes in dose in the last 3 months Valid encounter within last 12 months To be filled at: [facility]/pharmacy #[id number] - [place], [place] - [address] [facility] 11-19-2023 NOV 02-27-2024 Sabi Corrales MA [facility] 2023-11-19 10:30:00 Breath test [facility] 2023-11-19 10:30:00 Addended by: AYESHA LIANG on: 11/19/2023 02:54 PM Modules accepted: Orders Ayesha Liang [facility] 2023-11-19 08:13:22 Pt has scheduled appointment for 11/18. Rossana Malik [facility] 2023-11-18 18:46:30 1. Primary insomnia Update [...] with no significant benefit, will also discontinue. [facility] 2023-11-18 13:08:04 Patient given printed and [...] in no apparent distress. Tosha Duval RN [facility] 2023-11-18 07:19:14 [facility] ED Transfer of Care Note. Off-going Physician:Lizette [...] 1049) Results: Labs Reviewed COMP. METABOLIC PANEL (68228) - Abnormal; Notable for the following components: [...] to have appropriate medical decision making capability. TRENCH TRIMMER FINE clinic referral placed. Disposition: Discharged Home Social Determinants of Health: None ED Disposition ED Disposition Disch - Home Condition Stable Comment -- [facility] 2023-11-18 07:14:03 Patient report given to Crispin GALVAN [facility] 2023-11-18 05:26:10 Pt presents to ED with c/o vomiting 2 days. Pt states she also has pain in the top of her stomach. Pt rates pain 9/10 in abdomen No meds GEEK SQUAD MANAGER LMP: couple weeks ago. Lisha Spear RN [facility] 2023-11-18 05:21:00 [facility] Emergency Department Note Patient Name: Lanre Bales Date of : 1995 28 year old female Treatment Room: TX5/TX5 Primary Care Physician: Jess Munson Patient Escorted by: Family [5] Mode of Arrival: Personal means [1] EMS Treatment Prior to ED Arrival: GEEK SQUAD MANAGER treatment: None Travel and Exposure Screening: Symptoms [...] History provided by: Significant other and patient aerial photograph interpreter used: No Abdominal Pain Pain location: Epigastric [...] 11/18/23527 (!) 164/100 Pulse 11/18/23527 119 Resp 11/18/2328 18 Temp 11/18/23527 36.7 ?C (98.1 ?F) Temp src -- SpO2 11/18/23 05 99 % Measured on 11/18/23527 Room air [...] Lab Results: Lab Results COMP. METABOLIC PANEL (01815) - Abnormal Result Value Ref Range NA [...] signed by: Caro Bauer MD 11/18/23 0737 [facility] 2023-11-16 14:03:54 Images from the original note were not included. Requested Renewals zolpidem 5 mg tablet Sig: Take 1 tablet by mouth at bedtime as needed for Insomnia. Disp: 30 tablet Refills: 0 Start: 11/16/2023 Class: eRX For: Primary insomnia Last ordered: 4 weeks ago (10/19/2023) by Jess Munson MD Provider Review Required Lgpumc2211/16/2023 01:53 PM Protocol Details This refill cannot be delegated Valid encounter within last 12 months To be filled at: [facility]/pharmacy #[id number] [place], [place] - [address] [place] [address] 08-06-2023 NOV N/A Sabi Corrales MA [facility] 2023-11-16 14:03:07 Images from the original [...] ago (10/16/2023) by Jess Munson MD Off-Protocol Nlvoyp7511/16/2023 01:48 PM Protocol Details Medication not assigned to a protocol, forward to provider. Valid encounter within last 12 months To be filled at: [facility] [address] [place] [address] - [address] [place] [address] 08-06-2023 NOV N/A Sabi Corrales MA [facility] 2023-11-16 13:49:19 Patient requesting a refill of:zolpidem Medication: zolpidem Dose: 5 mg Route: refill Quantity: 30 Pharmacy: [facility] [address] [place] [id number] Last appt.: 08/05 Next appt.: na Would like to speak with clinic about getting this done today [facility] 2023-11-16 13:46:24 Lanre Bales is a 28 year old female is calling to get an update on refill request. Pt wants this sent today Petty Valdivia [facility] 2023-11-15 11:34:30 Images from the original note [...] ago (10/16/2023) by Jess Munson MD Off-Protocol Pjkyov5511/15/2023 11:02 AM Protocol Details Medication not assigned to a protocol, forward to provider. Valid encounter within last 12 months To be filled at: [facility] [address] Last Refilled: 10/16/23 Recent Visits Date Type Provider Dept 08/06/23 Office Visit Jess Munson MD [facility] 01/24/23 Office Visit Jess uMnson MD [facility] 12/25/22 Office Visit Jess Munson MD [facility] Showing recent visits within past 540 days with a meds authorizing provider and meeting all other requirements Future Appointments No visits were found meeting these conditions. Showing future appointments within next 150 days with a meds authorizing provider and meeting all other requirements Dhara Corral MA [facility] 2023-11-08 15:30:00 DC instructions and prescription for Zofran ODT reviewed with patient. She will fill prescription and take as directed. She will follow up with her PCP in 3-5 days as instructed. She will return to the ED if her symptoms persist or worsen. She was Dc'd ambulatory-alert and in no distress [facility] 2023-11-08 13:02:16 Report received and care assumed. [facility] 2023-11-08 12:50:54 Nurse Report Report given to COLE Miranda. Chief complaint, assessment findings, infusion verify and orders reviewed. Plan of care discussed with both nurses. Judy Marroquin RN Judy Marroquin RN [facility] 2023-11-08 10:15:50 Vomiting x3 days. Lucille Lester RN [facility] 2023-10-18 13:34:30 Images from the original note were not included. Notes: Patient requesting refill, please review. Abbey Goel MA 10/18/2023 1:35 PM Last Refilled: 09/13/23 Recent Visits Date Type Provider Dept 08/06/23 Office Visit Jess Munson MD [facility] 01/24/23 Office Visit Jess Munson MD [facility] 12/25/22 Office Visit Jess Munson MD [facility] Showing recent visits within past [...] by Jess Munson MD Provider Review Required Sylpdx4410/18/2023 12:27 PM Protocol Details This refill cannot be delegated Valid encounter within last 12 months To be filled at: [facility] [address] [place] [address] Abbey Goel MA [facility] 2023-10-18 12:25:18 Lanre Bales is a 28 year old female and pt is calling back to check on her refill request. Would like to know when it will be refilled please advise. zolpidem 5 mg tablet [address] [address] [facility] 2023-10-16 13:12:14 Images from the original note were not included. Requested Renewals zolpidem 5 mg tablet Sig: Take 1 tablet by mouth at bedtime as needed for Insomnia. Disp: 30 tablet Refills: 0 Start: 10/16/2023 Class: eRX For: Primary insomnia Last ordered: 1 month ago (09/13/2023) by Jess Munson MD Provider Review Required Txyjft5010/16/2023 12:10 PM Protocol Details This refill cannot be delegated Valid encounter within last 12 months To be filled at: [facility] [address] [place] [address] 08-06-2023 NOV N/A Sabi Corrales MA [facility] 2023-10-15 13:12:38 Images from the original [...] ago (09/13/2023) by Jess Munson MD Off-Protocol Bklkwf5910/15/2023 01:05 PM Protocol Details Medication not assigned [...] ago (10/03/2023) by Jess Munson MD Off-Protocol Zmmcki6910/15/2023 01:05 PM Protocol Details Medication not assigned to a protocol, forward to provider. Valid encounter within last 12 months To be filled at: [facility] [address] [place] [address] 08-06-2023 NOV N/A Sabi Corrales MA [facility] 2023-10-02 08:26:45 Images from the original note were not included. Last OV:01/24/23 with Jess Munson MD Last Refill:12/26/22 prescribed by Jess Munson MD Last Labs Pertaining to Med:08/06/2023 Future Appt: Future Appointments Provider Department Dept Phone 2023 9:40 AM Jess Munson [facility] [phone] Requested Renewals ergocalciferol, vitamin d2, (VITAMIN D2) 1,250 mcg (50,000 unit) capsule Sig: Take 1 capsule by mouth weekly. Disp: 12 capsule Refills: 0 Start: 10/01/2023 Class: eRX For: Vitamin D deficiency Last ordered: 9 months ago (12/26/2022) by Jess Munson MD Off-Protocol Jkswae9510/01/2023 08:53 PM Protocol Details Medication not assigned to a protocol, forward to provider. Valid encounter within last 12 months To be filled at: [facility]/pharmacy #[id number] AT [facility] Abbey Goel MA [facility] 2023-09-13 08:20:32 Images from the original [...] ago (08/06/2023) by Jess Munson MD Off-Protocol Cxwyot2409/12/2023 06:49 PM Protocol Details Medication not assigned to a protocol, forward to provider. Valid encounter within last 12 months zolpidem 5 mg tablet Sig: Take 1 tablet by mouth at bedtime as needed for Insomnia. Disp: 30 tablet Refills: 0 Start: 09/12/2023 Class: eRX For: Primary insomnia Last ordered: 1 month ago (08/06/2023) by Jess Munson MD Provider Review Required Cmyhcp5509/12/2023 06:49 PM Protocol Details This refill cannot be delegated Valid encounter within last 12 months To be filled at: [address] 08-06-2023 NOV N/A Sabi Corrales MA [facility] 2023-08-06 14:30:00 Images from the original note were not included. Venipuncture collection performed by clean technique on the right anticubitus. Total of 1 attempts were made. Slight pressure and a bandage/dressing were applied to the site(s). The patient experienced no complications. The following specimens were processed according to instructions and sent to [facility] laboratories per lab order on 08/06/2023 : LT BLUE SST 2 RED LAV 2 PPT DK GREEN (LiHep) 1 DK GREEN (SodH) HART DK BLUE (K2) 1 DK BLUE (S) ACD Blood Culture NIPT/NTD [facility] 2023-08-01 12:29:00 Attempted to reach patient to schedule with LORRAINE radford. Elin Trivedi [facility] 2023-07-31 18:24:47 You can schedule an appointment with me in person and we can review other options. Dr. Dias is out of office till next week. [facility] 2023-07-31 16:57:43 Images from the original [...] lifestyle changes to get best results Off-Protocol Loipfo0507/31/2023 02:47 PM Protocol Details Medication not assigned to a protocol, forward to provider. Valid encounter within last 12 months To be filled at: [address] Last Refilled: 05/29/2023 Recent Visits Date Type Provider Dept 01/24/23 Office Visit Jess Munson MD [facility] 12/25/22 Office Visit Jess Munson MD [facility] Showing recent visits within past 540 days with a meds authorizing provider and meeting all other requirements Future Appointments Date Type Provider Dept 08/13/23 Appointment Jess Munson MD [facility] Showing future appointments within next 150 days with a meds authorizing provider and meeting all other requirements Dhara Corral MA [facility] 2023-07-25 08:53:56 Images from the original note were not included. Requested Renewals traZODone 100 mg tablet Sig: Take 1 tablet by mouth at bedtime. Disp: 90 tablet Refills: 0 Start: 07/25/2023 Class: eRX Non-formulary For: Primary insomnia Last ordered: 3 months ago (04/23/2023) by Jess Munson MD Psychiatry: Antidepressants Ihwqym6107/25/2023 08:38 AM Protocol Details Manual Review: Verify no changes in dose in the last 3 months Valid encounter within last 12 months To be filled at: [facility]/pharmacy #[id number] - [place], [place] - [address] [place] 01-24-2023 NOV N/A Sabi Corrales MA [facility] 2023-07-25 08:38:07 Images from the original note were not included. [facility] 2023-06-21 12:29:19 Patient dc home. Follow up with pcp. Verbalized understanding. Prosper Segovia RN [facility] 2023-06-21 11:23:37 Pt arrived via private car with c/o dysuria x3 days Kelly Rolon RN [facility] 2023-06-21 11:14:00 [facility] Emergency Department Note Patient Name: Lanre Bales [...] on file Follow-up: Electronically signed by: Bonita rTivedi DO 06/21/23 1216 [facility] 2023-06-12 14:39:19 Call placed to pt to discuss [employer] message. Tiff Thomason RN [facility] 2023-05-29 14:42:38 Images from the original note [...] ago (04/12/2023) by Jess Munson MD Off-Protocol Qqyjvi6005/29/2023 02:20 PM Protocol Details Medication not assigned to a protocol, forward to provider. Valid encounter within last 12 months To be filled at: [facility] - [place], [place] - [address] Last Refilled: 04/12/23 Recent Visits Date Type Provider Dept 01/24/23 Office Visit Jess Munson MD [facility] 12/25/22 Office Visit Jess Munson MD [facility] Showing recent visits within past 540 days with a meds authorizing provider and meeting all other requirements Future Appointments Date Type Provider Dept 06/06/23 Appointment Jess Munson MD [facility] Showing future appointments within next 150 days with a meds authorizing provider and meeting all other requirements Dhara Corral MA [facility] 2023-04-23 10:14:44 Images from the original note were not included. Routed to provider for review. Unable to refill per ambulatory refill guidelines. Notes: traZODone 100 mg tablet Sig: Take 1 tablet by mouth at bedtime. Disp: 90 tablet Refills: 0 Start: 04/23/2023 Class: eRX Non-formulary For: Primary insomnia Last ordered: 2 months ago (01/24/2023) by Jess Munson MD Psychiatry: Antidepressants Knqpkq1504/23/2023 09:19 AM Protocol Details Manual Review: Verify no changes in dose in the last 3 months Valid encounter within last 12 months To be filled at: [facility] [id number] - [place], [place] - [address] [place] [address] Last Refilled: 01/24/2023 Recent Visits Date Type Provider Dept 01/24/23 Office Visit Jess Munson MD [facility] 12/25/22 Office Visit ObJess Ramesh MD [facility] Showing recent visits within past 540 days with a meds authorizing provider and meeting all other requirements Future Appointments Date Type Provider Dept 04/25/23 Appointment Jess Munson MD [facility] Showing future appointments within next 150 days with a meds authorizing provider and meeting all other requirements DIAL READING TEACHER Dhara Corral MA [facility] 2023-04-13 17:36:40 Refill request approved after communication with patient via Tuteet. DIAL READING TEACHER Melissa Jimenez RN [facility] 2023-04-11 15:07:24 Images from the original [...] ago (03/02/2023) by Jess Munson MD Off-Protocol [id number]/11/2023 02:55 PM Protocol Details Medication not assigned to a protocol, forward to provider. Valid encounter within last 12 months To be filled at: [facility] [address] [place] [address] 01-24-2023 [facility] 04-25-2023 DIAL READING TEACHER Sabi Corrales MA [facility] 2023-04-02 12:51:41 Images from the original note were not included. Last OV: 01/24/2023 with Jess Munson Last Refill: 02/20/2023 prescribed by Jess Munson Last Labs Pertaining to Med: N/A Future Appt: Future Appointments Provider Department Dept Phone 04/25/2023 3:00 PM Jess Munson MD [facility] [place] [phone] Routed to provider for review. Unable to refill per ambulatory refill guidelines. zolpidem 5 mg tablet Sig: Take 1 tablet by mouth at bedtime as needed for Insomnia. Disp: 30 tablet Refills: 0 Start: 04/01/2023 Class: eRX For: Primary insomnia Last ordered: 1 month ago (02/20/2023) by Jess Munson MD Provider Review Required [id number]/01/2023 01:01 PM Protocol Details This refill cannot be delegated Valid encounter within last 12 months DIAL READING TEACHER Melissa Jimenez RN [facility] 2023-03-02 13:44:04 Images from the original [...] ago (01/26/2023) by Jess Munson MD Off-Protocol [id number]/02/2023 01:27 PM Protocol Details Medication not assigned to a protocol, forward to provider. Valid encounter within last 12 months To be filled at: [facility] [address] [place] [address] 01-24-2023 NOV 04-25-2023 DIAL READING TEACHER Sabi Corrales MA [facility] 2023-02-19 20:36:52 Images from the original note were not included. Last OV: 01/24/2023 with Jess Munson Last Refill: 01/16/2023 prescribed by Jess Munson Last Labs Pertaining to Med: N/A Future Appt: Future Appointments Provider Department Dept Phone 04/25/2023 3:00 PM Jess Munson MD [facility] [place] [phone] Routed to provider for review. Unable to refill per ambulatory refill guidelines. zolpidem 5 mg tablet Sig: Take 1 tablet by mouth at bedtime as needed for Insomnia. Disp: 30 tablet Refills: 0 Start: 02/19/2023 Class: eRX For: Primary insomnia Last ordered: 1 month ago (01/16/2023) by Jess Munson MD Provider Review Required [id number]/19/2023 03:32 PM Protocol Details This refill cannot be delegated Valid encounter within last 12 months DIAL READING TEACHER Melissa Jimenez RN [facility]
[2024-04-02] MEDS ORDERED: ONDANSETRON 4 MG/2 ML VIAL ONE ×3 (04:57→07:35)
[2024-04-02] MEDS ORDERED: MORPHINE 4 MG/ML SYR ONE (04:57)
[2024-04-02] MEDS ORDERED: FAMOTIDINE 20 MG/2 ML VIAL IV ONE (04:58)
[2024-04-02 05:20] LABS: Absolute Lymphocytes (CBC) 0.7 K/uL (0.7-4.9); Absolute Monocytes 0.2 K/uL (0.1-1.3); Basophils % 0.3 % (0-1.3); Eosinophils % 0.1 % (0-4.4); Hematocrit 42.9 % (36.0-45.0); Hemoglobin 14.7 g/dL (12.0-15.0); Lymphocytes % 6.4 % (15.3-44.8); MCH 35.3 pg (27.0-35.0); MCHC 34.3 g/dL (32.0-36.0); MCV 103.1 fL (80-100); MPV 7.4 fL (7.6-11.3); Monocytes % 1.5 % (3.3-12.3); Neutrophils % 91.7 % (41.7-73.7); Platelets 439 thou/uL (152-406); RBC Red Blood Cell Count 4.16 M/uL (3.86-4.86); Red Cell Distribution Width 14.3 % (12.1-15.2)
[2024-04-02 05:29] LABS: Albumin 3.6 g/dL (3.4-5.0); Albumin/Globulin Ratio 0.8 (1.1-1.8); Anion Gap 9.6 mEq/L (5.0-15.0); Bilirubin Total 0.4 mg/dL (0.2-1.0); Globulin 4.3 g/dL (2.3-3.5); Potassium 3.6 mEq/L (3.5-5.1); Protein, Total 7.9 g/dL (6.4-8.2)
[2024-04-02] MEDS ORDERED: KETOROLAC 30 MG/ML INJ ONE (06:36)
[2024-04-02 06:47] LABS: Atypical Lymphocytes 1 %; Differential Total Cells Count 100; Lymphocytes 7 % (15-42); Monocytes 3 % (0-10); Segmented Neutrophils 89 % (40-80)
[2024-04-02 06:48] LABS: Blood Morphology Comment NOT SEEN (NOT SEEN); Platelet Estimate INCR; Platelets, Giant NOTED
--- NOTE | 2024-04-02 07:34 | RAD REPORT ---
EXAMINATION: CT ABDOMEN AND PELVIS WITH CONTRAST CLINICAL INDICATION: Abdominal pain TECHNIQUE: CT abdomen and pelvis was performed, after the administration of 100 cc Isovue-300.. Sagit aleksandra and coronal reconstructions were obtained. One or more of the following dose reduction techniques were used: Automated exposure control, adjustment of the mA and kV according to patient si ze, and iterative reconstruction. Unless otherwise specified, incidental findings do not require dedicated imaging follow-up. [id number]. Oral contrast was not given which limits evaluation of bowel and appendix. COMPARISON: .February 2024 FINDINGS: Liver, spleen, pancreas, adrenals and kidneys appear unremarkable No evidence of diverticulitis.. Normal appendix. Cholecystectomy. 2.6 cm left ovarian cyst. No follow-up imaging recommended. No significant free fluid : IMPRESSION: 2.6 cm left ovarian cyst without significant free fluid
[2024-04-02] MEDS ORDERED: LIDOCAINE VISCOUS 2% 10ML ORAL SOLN ONE (07:36)
[2024-04-02] MEDS ORDERED: MAGNES/ALUMIN/SIMET 30ML UCUP ONE (07:36)
[2024-04-02] MEDS ORDERED: MORPHINE 2 MG/ML SYR ONE (07:36)
--- NOTE | 2024-04-02 08:00 | EDPHYS ---
Physician Documentation [facility] Name: Robin Bernard Age: 28 yrs Sex: Female : 1995 Arrival Date: 04/02/2024 Time: 04:15 Bed 6 Private MD: ED Physician Branden Urban HPI: 04/02 04:51 This 28 yrs old Black Female presents to ER via Ambulatory with complaints of ec2 Nausea/Vomiting. 04:51 Patient arrives today for evaluation of epigastric abdominal pain. Patient complained ec2 of abdominal pain along with nausea and vomiting diarrhea. Patient reports symptoms been onset for 1 day. Patient reports decreased p.o. intake. Patient denies any other complaints. History of cholecystectomy.. MIXOLOGIST: 04:40 LMP 04/02/2024, unknown vc1 Historical: - Allergies: 04:35 Reglan; vc1 - Home Meds: 04:35 Protonix 40 mg Oral tablet 1 tab daily [Active]; vc1 - PMHx: 04:35 gastritis; insomnia; Placenta Previa; vc1 - PSHx: 04:35 Cholecystectomy; vc1 - Immunization history:: Client reports having NOT received the Covid vaccine. - Infectious Disease History:: Denies. - Social history:: Smoking status: Patient denies any tobacco usage or history of. ROS: 04:51 Constitutional: as per hpi ec2 Exam: 04:51 Constitutional: GEN: NAD Head: atraumatic Eyes: EOMI Ears: External ears are ec2 normal. CV: regular rate LUNGS: no respiratory distress ABD: non-distended, soft, not guarding, not rigid, tender in epigastrium. SKIN: no evidence of rashes MSK: no evidence of trauma Vital Signs: 04:33 BP 148 / 98; Pulse 98; Resp 16; Pulse Ox 100% ; Weight 108.86 kg; Height 5 ft. 5 in. ; vc1 04:40 Temp 98.1; vc1 05:00 BP 144 / 93; Pulse 84; Resp 16; Pulse Ox 100% ; vc1 06:12 BP 141 / 96; Pulse 82; Resp 18 S; Pulse Ox 100% on R/A; br2 06:44 BP 143 / 97; Pulse 85; Resp 18; Pulse Ox 100% ; br2 07:46 BP 136 / 95; Pulse 72; Resp 17; Pulse Ox 100% on R/A; Pain 10/10; ll1 08:08 BP 135 / 91; Pulse 75; Resp 16; Pulse Ox 100% ; Pain 7/10; ll1 04:33 Body Mass Index 39.94 (108.86 kg, 165.1 cm) vc1 07:46 Pain Scale: Adult ll1 08:08 Pain Scale: Adult ll1 MDM: 04:17 Medical Screening Exam initiated ec2 04:51 Data reviewed: vital signs, nurses notes. ED course: Patient arrives today for ec2 evaluation of upper abdominal pain. Examination is revealing for epigastric abdominal TTP. Will obtain lab work, urine studies, CT imaging. Differential diagnosis considered include processes such as gastritis, esophagitis, urinary tract infection, pancreatitis.. 06:44 ED course: Will sign patient out to oncoming physician with pending CT imaging.. ec2 06:44 Transition of care: After a detail discussion of the patient's case, care is ec2 transferred to Branden Urban MD. 09:14 ED course: Symptoms improved with treatment in the ED, CT scan, labs are unremarkable, rt stable for outpatient care.. 04/02 04:42 Order name: CBC with Diff; Complete Time: 06:50 lg3 04/02 04:42 Order name: CMP; Complete Time: 05:57 lg3 04/02 04:42 Order name: Lipase; Complete Time: 05:57 lg3 04/02 05:22 Order name: Manual Differential; Complete Time: 06:50 EDMS 04/02 04:42 Order name: CT Abd/Pelvis - IV Contrast Only; Complete Time: 07:37 lg3 04/02 04:42 Order name: IV Saline Lock; Complete Time: 05:04 lg3 04/02 04:42 Order name: Labs collected and sent; Complete Time: 05:04 lg3 Administered Medications: 05:04 Drug: Ondansetron IVP 4 mg IVP once; over 2 minutes Route: IVP; Site: right antecubital;br2 07:43 Follow up: Response: No adverse reaction; Nausea is decreased ll1 05:04 Drug: morphine IVP or IV 4 mg IVP once over 4 mins Route: IVP; Infused Over: 4 mins; br2 Site: right antecubital; 07:43 Follow up: Response: No adverse reaction; Pain is decreased ll1 05:05 Drug: Famotidine IVP 20 mg IVP once; dilute with 10 mL 0.9% NaCl; give over 2 minutes br2 Route: IVP; Site: right antecubital; 07:44 Follow up: Response: No adverse reaction ll1 06:42 Drug: Ondansetron IVP 4 mg IVP once; over 2 minutes Route: IVP; Site: right antecubital;br2 07:44 Follow up: Response: No adverse reaction ll1 06:42 Drug: Ketorolac IVP 15 mg IVP once Route: IVP; Site: right antecubital; br2 07:44 Follow up: Response: No adverse reaction; Pain is decreased ll1 07:43 Drug: morphine IVP or IV 2 mg IVP once over 4 mins {Note: RASS 0, pain 10/10.} Route: ll1 IVP; Infused Over: 4 mins; Site: right antecubital; 08:09 Follow up: Response: No adverse reaction; Pain is decreased; RASS: Alert and Calm (0) ll1 07:43 Drug: Ondansetron IVP 4 mg IVP once; over 2 minutes Route: IVP; Site: right antecubital;ll1 08:09 Follow up: Response: No adverse reaction; Nausea is decreased ll1 07:44 Drug: GI Cocktail without - (Maalox PO 30 ml, Lidocaine Mucous Membrane 2 % 15 ll1 ml) PO once Route: PO; 08:09 Follow up: Response: No adverse reaction ll1 Disposition Summary: 04/02/24 07:59 Discharge Ordered Notes: Location: Home rt Problem: an ongoing problem rt Symptoms: have improved rt Condition: Stable rt Diagnosis - Acute gastritis rt Followup: rt - With: Private Physician - When: 2 - 3 days - Reason: Discharge Instructions: - Discharge Summary Sheet rt - Gastritis, Adult rt Forms: - Work release form ll1 - Medication Reconciliation Form rt - Antibiotic Education rt - Prescription Opioid Use rt - Patient Portal Instructions rt - Leadership Thank You Letter rt Prescriptions: - ondansetron 4 mg Oral Tablet,disintegrating - take 1 tablet ORAL route every 6 hours as needed for nausea; 30 tablet; rt Refills: 0, Product Selection Permitted Signatures: Dispatcher [employer] Radha Huddleston RN RN lg3 Inocencio Love RN RN ll1 Karina Vasquez, COLE RN vc1 Brandne Urban MD MD rt Mann Duran MD MD ec2 Kelly Whitman RN RN br2 Corrections: (The following items were deleted from the chart) 04:42 04:42 CBC+H.LAB.BRZ ordered. EDMS EDMS 04:42 04:42 COMPREHENSIVE METABOLIC PANEL+C.LAB.BRZ ordered. EDMS EDMS 04:42 04:42 LIPASE+C.LAB.BRZ ordered. EDMS EDMS 04:42 04:42 Test, Urine+UC.LAB.BRZ ordered. EDMS EDMS 04:42 04:42 Urinalysis+U.LAB.BRZ ordered. EDMS EDMS 04:42 04:42 Abdomen Pelvis W Con+CT.RAD.BRZ ordered. EDMS EDMS
--- NOTE | 2024-04-02 08:00 | ER ---
Nurse's Notes [facility] Name: Robin Bernard Age: 28 yrs Sex: Female : 1995 Arrival Date: 04/02/2024 Time: 04:15 Bed 6 Private MD: Diagnosis: Acute gastritis Presentation: 04/02 04:33 Chief complaint: Patient states: abdominal pain times one day, history of gastritis, vc1 feels the same. Coronavirus screen: Client denies travel out of the [place] in the last 14 days. At this time, the client does not indicate any symptoms associated with coronavirus-19. Ebola Screen: Patient negative for fever greater than or equal to 101.5 degrees Fahrenheit, and additional compatible Ebola Virus Disease symptoms Patient denies exposure to infectious person. Patient denies travel to an Ebola-affected area in the 21 days before illness onset. No symptoms or risks identified at this time. Initial Sepsis Screen: Does the patient meet any 2 criteria? No. Patient's initial sepsis screen is negative. Does the patient have a suspected source of infection? No. Patient's initial sepsis screen is negative. Risk Assessment: Do you want to hurt yourself or someone else? Patient reports no desire to harm self or others. Onset of symptoms was April 01, 2024. 04:33 Method Of Arrival: Ambulatory vc1 04:33 Acuity: BOZENA 3 vc1 Triage Assessment: 04:41 General: Appears in no apparent distress. Behavior is calm, cooperative, appropriate vc1 for age. Pain: Complains of pain in epigastric area. EENT: No deficits noted. No signs and/or symptoms were reported regarding the EENT system. Neuro: Level of Consciousness is awake, alert, obeys commands, Oriented to person, place, time, situation, Appropriate for age. Cardiovascular: Heart tones S1 S2 Capillary refill < 3 seconds. Respiratory: Airway is patent Respiratory effort is even, unlabored, Respiratory pattern is regular, symmetrical, Breath sounds are clear bilaterally. GI: Reports epigastric pain. GI: Abdomen is non-distended. : No deficits noted. No signs and/or symptoms were reported regarding the genitourinary system. Derm: Skin is intact, is healthy with good turgor, Skin is dry, Skin is normal, Skin temperature is warm. Musculoskeletal: Circulation, motion, and sensation intact. Range of motion: intact in all extremities. 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 - Infectious Disease History:: Denies. - Social history:: Smoking status: Patient denies any tobacco usage or history of. Screenin:36 [facility] ED Fall Risk Assessment (Adult) History of falling in the last 3 months, vc1 including since admission No falls in past 3 months (0 pts) Confusion or Disorientation No (0 pts) Intoxicated or Sedated No (0 pts) Impaired Gait No (0 pts) Mobility Assist Device Used No (0 pt) Altered Elimination No (0 pt) Score/Fall Risk Level 0 - 2 = Low Risk Oriented to surroundings, Maintained a safe environment, Educated pt \T\ family on fall prevention, incl call for assistance when getting out of bed. Abuse screen: Denies threats or abuse. Nutritional screening: No deficits noted. Tuberculosis screening: No symptoms or risk factors identified. Assessment: 05:05 Reassessment: Patient and/or family updated on plan of care and expected duration. Pain br2 level reassessed. Patient is alert, oriented x 3, equal unlabored respirations, skin warm/dry/pink. General: Appears uncomfortable, Behavior is calm, cooperative. Pain: Complains of pain in epigastric area, right upper quadrant and left upper quadrant Pain currently is 10 out of 10 on a pain scale. Respiratory: Airway is patent Respiratory effort is even, unlabored, Respiratory pattern is regular, symmetrical. GI: Reports lower abdominal pain, nausea. GI: Abdomen is obese, Abdomen is tender to palpation in epigastric area, right upper quadrant and left upper quadrant. 05:27 Reassessment:. vc1 07:00 Reassessment: Report received from weight shifter RN. ll1 07:30 Reassessment: Patient and/or family updated on plan of care and expected duration. Pain ll1 level reassessed. 07:46 Reassessment: No changes from previously documented assessment. Patient and/or family ll1 updated on plan of care and expected duration. Pain level reassessed. Patient is alert, oriented x 3, equal unlabored respirations, skin warm/dry/pink. 08:08 Reassessment: No changes from previously documented assessment. Patient and/or family ll1 updated on plan of care and expected duration. Pain level reassessed. Patient is alert, oriented x 3, equal unlabored respirations, skin warm/dry/pink. Patient states symptoms have improved. Vital Signs: 04:33 BP 148 / 98; Pulse 98; Resp 16; Pulse Ox 100% ; Weight 108.86 kg; Height 5 ft. 5 in. ; vc1 04:40 Temp 98.1; vc1 05:00 BP 144 / 93; Pulse 84; Resp 16; Pulse Ox 100% ; vc1 06:12 BP 141 / 96; Pulse 82; Resp 18 S; Pulse Ox 100% on R/A; br2 06:44 BP 143 / 97; Pulse 85; Resp 18; Pulse Ox 100% ; br2 07:46 BP 136 / 95; Pulse 72; Resp 17; Pulse Ox 100% on R/A; Pain 10/10; ll1 08:08 BP 135 / 91; Pulse 75; Resp 16; Pulse Ox 100% ; Pain 7/10; ll1 04:33 Body Mass Index 39.94 (108.86 kg, 165.1 cm) vc1 07:46 Pain Scale: Adult ll1 08:08 Pain Scale: Adult ll1 ED Course: 04:16 Patient arrived in ED. ec2 04:16 Mann Duran MD is Attending Physician. ec2 04:35 Triage completed. vc1 04:36 Arm band placed on right wrist. vc1 04:40 Patient has correct armband on for positive identification. Bed in low position. Pulse vc1 ox on. NIBP on. 04:43 Provided Education on: call light. vc1 04:45 Inserted saline lock: 20 gauge in right antecubital area, using aseptic technique. br2 04:48 Radiology exam delayed due to test not completed at this time. IV insertion jc4 attempt and/or patient not having appropriate IV at this time. 04:54 Kelly Whitman RN is Primary Nurse. br2 05:04 CBC with Diff Sent. br2 05:04 CMP Sent. br2 05:04 Lipase Sent. br2 05:04 Test, Urine Sent. br2 06:06 Radiology exam delayed due to lab results not completed at this time. (HCG) eh test not completed at this time. 07:00 Attending Physician role handed off by Mann Duran MD rt 07:00 Branden Urban MD is Attending Physician. rt 07:13 CT Abd/Pelvis - IV Contrast Only In Process Unspecified. EDMS 07:25 Primary Nurse role handed off by Kelly Whitman, COLE ll1 07:25 Inocencio Love, COLE is Primary Nurse. ll1 07:40 IV is patent, is intact, with fluids infusing freely, Flushed right antecubital saline ll1 lock with 5 ml normal saline. 07:46 Door closed. Noise minimized. Visitors limited. Verbal reassurance given. ll1 08:09 No provider procedures requiring assistance completed. IV discontinued, intact, ll1 bleeding controlled, No redness/swelling at site. Pressure dressing applied. Administered Medications: 05:04 Drug: Ondansetron IVP 4 mg IVP once; over 2 minutes Route: IVP; Site: right antecubital;br2 07:43 Follow up: Response: No adverse reaction; Nausea is decreased ll1 05:04 Drug: morphine IVP or IV 4 mg IVP once over 4 mins Route: IVP; Infused Over: 4 mins; br2 Site: right antecubital; 07:43 Follow up: Response: No adverse reaction; Pain is decreased ll1 05:05 Drug: Famotidine IVP 20 mg IVP once; dilute with 10 mL 0.9% NaCl; give over 2 minutes br2 Route: IVP; Site: right antecubital; 07:44 Follow up: Response: No adverse reaction ll1 06:42 Drug: Ondansetron IVP 4 mg IVP once; over 2 minutes Route: IVP; Site: right antecubital;br2 07:44 Follow up: Response: No adverse reaction ll1 06:42 Drug: Ketorolac IVP 15 mg IVP once Route: IVP; Site: right antecubital; br2 07:44 Follow up: Response: No adverse reaction; Pain is decreased ll1 07:43 Drug: morphine IVP or IV 2 mg IVP once over 4 mins {Note: RASS 0, pain 10/10.} Route: ll1 IVP; Infused Over: 4 mins; Site: right antecubital; 08:09 Follow up: Response: No adverse reaction; Pain is decreased; RASS: Alert and Calm (0) 1 07:43 Drug: Ondansetron IVP 4 mg IVP once; over 2 minutes Route: IVP; Site: right antecubital;ll1 08:09 Follow up: Response: No adverse reaction; Nausea is decreased 1 07:44 Drug: GI Cocktail without - (Maalox PO 30 ml, Lidocaine Mucous Membrane 2 % 15 ll1 ml) PO once Route: PO; 08:09 Follow up: Response: No adverse reaction 1 Medication: 04:40 VIS not applicable for this client. vc1 Outcome: 07:59 Discharge ordered by MD. rt 08:09 Discharged to home ambulatory, 1 08:09 Condition: stable 08:09 Discharge instructions given to patient, Instructed on discharge instructions, follow up and referral plans. medication usage, Demonstrated understanding of instructions, follow-up care, medications, Prescriptions given X 1, 08:09 Patient left the ED. 1 Signatures: Dispatcher [employer] EDMS Abdon Ramsey Lynsay, RN RN ll1 Karina Vasqeuz RN RN vc1 Branden Urban MD MD rt Corral, Edwin, MD MD ec2 Kelly Whitman RN RN br2 David Boles jc4 Corrections: (The following items were deleted from the chart) 04:36 04:33 Chief complaint: Patient states: abdominal pain times one day, history of vc1 gastroparesis, feels the same vc1
[2024-04-02 11:49] VITALS: O2SAT 100
[2024-04-02 11:50] VITALS: TEMP 98.1
[2024-04-02 11:55] VITALS: BP 135/91
== END 2024-04-02 08:09 | disposition home or self-care (01) ==
LOC: ER 04:15
DX: K29.00 Acute gastritis without bleeding (principal)
CPT/HCPCS: 85025; 36415; 83690; 80053; 74177; Q9967; J2270; J2405 ×3

== ENCOUNTER 2024-04-18 06:31 | Emergency (ER) | payer OTHER ==
--- OUTSIDE RECORDS SUMMARY | 2024-04-18 06:40 | XMS REPORT | Continuity of Care Document ---
Author Name Unknown Address [address] [facility] [address] [place] [address] [facility] [address] [facility] [place] [address] Care Team Providers Care Site Identification Specialist Name Role Phone JESS MUNSON Primary Care Physician JESS Palomares Attending Clinician Unavailab JESS Salguero Attending Clinician Unavailab Jess Salguero MD Attending Clinician [phone] ANGUS DWYER Attending Clinician Unavailable ANGUS DWYER Attending Clinician Unavailable Angus Dwyer DO Attending Clinician [phone] Doctor Unassigned, Ballou Attending Clinician U ASTER Greenberg Attending Clinician Unavailable ASTER LEE Attending Clinician Unavailable Aster Lee NP Attending Clinician [phone] Eva Bryan MD Attending Clinician [phone] EVA BRYAN Attending Clinician Unavailable VANESSA LEYVA Attending Clinician Unavailable VANESSA LEYVA Attending Clinician Unavailable SHORTY ZAMBRANO Attending Clinician Unavailable SHORTY ZAMBRANO Attending Clinician Unavailable Shorty Draper Attending Clinician [phone] Radha Hurst MD Attending Clinician + [phone] Gianni Lopez CRNA Attending Clinician [phone] TIANNA MEI Attending Clinician Unavailable TIANNA MEI Attending Clinician Unavailable CARO BAUER Attending Clinician Unavailable CARO BAUER Attending Clinician Unavailable Caro Bauer MD Attending Clinician + [phone] Yann Ordonez Attending Clinician [phone] Yisel Hart MD Attending Clinician [phone] YISEL HART Attending Clinician Unavailable KONRAD ORDOÑEZ Attending Clinician Unavailab KONRAD Holguin Attending Clinician Unavailab merly Ordoñez [employer], Konrad Attending Clinician [phone] Tianna Young Attending Clinician [phone] ISAAC SHAY Attending Clinician Unavailable Vanessa Leyva MD Attending Clinician [phone] Jose De Jesus Medina MD Attending Clinician [phone] JOSE DE JESUS MEDINA Attending Clinician Unavailable JOSE DE JESUS MEDINA Attending Clinician Unavailable 2, [facility] Attending Clinician Unavailable KELLY SIMMS Attending Clinician UnavailKELLY Sanchez Attending Clinician UnavailKelly Sanchez MD Attending Clinician [phone] TIFF ISABEL Attending Clinician Unavailable TIFF ISABEL Attending Clinician Unavailable Maame [employer], Tiff Attending Clinician [phone] 2, [facility] Attending Clinician Unavailable BONITA TRIVEDI Attending Clinician Unavailab Bonita Hernandez DO Attending Clinician + [phone] Carlos Ibrahim MD Attending Clinician [phone] Doctor Unassigned, [place]ou Attending Clinician U NICOLE Aparicio Attending Clinician UnavailNICOLE Sellers Attending Clinician UnavailKAMILA Deal Attending Clinician Unavailable JACINTA VOSS Attending Clinician Unavaila susu Rivera, [facility] Temp Attending Clinician Henrietta vailable Akinsipe WHCNP, Meche Long Attending Clinician + Jacinta Voss CNM Attending Clinician [phone] MECHE ROBERSON Attending Clinician Unavail able Rodrick Carlisle Attending Clinician UnaDREW Thacker Attending Clinician Unavailable RODRICK PETE Attending Clinician UnavailWilver Khan MD Attending Clinician LOVE DOWELL Attending Clinician UnavailLOVE Gonzalez Attending Clinician UnavailBRENDA Pedro Attending Clinician Unavailable Brenda Velásquez MD Attending Clinician [phone] Richard Fernando STERLING Attending Clinician [phone] Ultrasound, Dylan-m Attending Clinician Unavaila Vinh Romano MD Attending Clinician [phone] VINH MONCADA Attending Clinician Unavailable VINH MONCADA Attending Clinician Unavailable Ivanna Rodriguez Attending Clinician [phone] Maddie Romeo MD Attending Clinician [phone] MADDIE ROMEO Attending Clinician Unavailable Lab, Ang-Rmchp Attending Clinician Unavailable Chema STERLING Alayna S Attending Clinician [phone] Abdullahi Gomez MD Attending Clinician [phone] Foreign Calvillo Attending Clinician + [phone] Edith Terry MD Attending Clinician [phone] EDITH TERRY Attending Clinician Unavailable EDITH TERRY Attending Clinician Unavailable SHORTY ZAMBRANO Admitting Clinician Unavailable EVA BRYAN Admitting Clinician Unavailable Eva Bryan MD Admitting Clinician + [phone] YISEL HART Admitting Clinician Unavailable Yisel Hart MD Admitting Clinician [phone] KELLY SIMMS Admitting Clinician UnavailVANESSA Garza Admitting Clinician Unavailable Vanessa Leyva MD Admitting Clinician [phone] BRENDA VELÁSQUEZ Admitting Clinician Unavailable Brenda Velásquez MD Admitting Clinician [phone] Edith Terry MD Admitting Clinician EDITH TERRY Admitting Clinician Unavailable Payers Payer Name Policy Type Policy Number Effective Date Expirati on Date Source [place] [employer] [id number] 2021 00:00:00 [employer] [id number] 2021 00:00:00 Problems Condition Name Condition Details Condition Category Status Onset Date Resolution Date Last Treatment Date Treating Clinician Comments Source Gallbladde r sludge Gallbladde r sludge Disease Active 2023-02 00:00: 00 [facility] Hematemesi s with nausea Hematemesi s with nausea Disease Active 2023-02 0- 00:00: 00 [facility] Coffee ground emesis Coffee ground emesis Disease Active 2023-02 0- 00:00: 00 [facility] Abdominal pain, epigastric Abdominal pain, epigastric Disease Active 2023-02 0- 00:00: 00 [facility] Papanicola ou smear of cervix with low grade squamous intraepith elial lesion (LGSIL) Papanicola ou smear of cervix with low grade squamous intraepith elial lesion (LGSIL) Disease Active 07-06 00:00: 00 Overview: Formattin g of this note might be different from the original. LGSIL in 2021 needs repeat pap smear in 2022. 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 Disease Active 4 00:00: 00 [facility] Tetrahydro cannabinol (THC) use disorder, mild, abuse Tetrahydro cannabinol (THC) use disorder, mild, abuse Disease Resolve d 2022-0 5-10 00:00: 00 2022-12-25 00:00:00 2022-12-25 13:59:24 [facility] Chronic hypertensi on with superimpos ed preeclamps ia Chronic hypertensi on with superimpos ed preeclamps ia Disease Resolve d 2021-02 0-08 00:00: 00 2022-01-20 00:00:00 2022-01-20 14:17:40 [facility] Supervisio n of high risk , antepartum Supervisio n of high risk , antepartum Disease Resolve d 5-05 00:00: 00 2022-01-20 00:00:00 2022-01-20 14:17:35 [facility] GBS (group B Streptococ cus carrier), +RV culture, 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 Will need ABX in labor. [facility] Single liveborn, born in hospital, delivered by vaginal delivery Single liveborn, born in hospital, delivered by vaginal delivery Disease Resolve d 2021-02 0-09 00:00: 00 2021-12-22 00:00:00 2021-12-22 07:58:27 [facility] Morbid obesity with body mass index of 40.0-49.9 Morbid obesity with body mass index of 40.0-49.9 Disease Resolve d 2021-02 0-08 00:00: 00 2021-12-22 00:00:00 2021-12-22 15:59:51 [facility] Severe pre-eclamp shena in third trimester Severe pre-eclamp shena in third trimester Disease Resolve d 2021-02 0-08 00:00: 00 2021-12-22 00:00:00 2021-12-22 07:58:22 [facility] Elevated blood pressure reading without diagnosis of hypertensi on Elevated blood pressure reading without diagnosis of hypertensi on Disease Resolve d 2022-0 9-08 00:00: 00 2021-12-22 00:00:00 2021-12-22 07:58:07 [facility] Proteinuri a affecting in third trimester Proteinuri a affecting in third trimester Disease Resolve d 2021-0 9-08 00:00: 00 2021-12-22 00:00:00 2021-12-22 07:58:17 [facility] Intractabl e nausea and vomiting Intractabl e nausea and vomiting Disease Resolve d 0 7-05 00:00: 00 2021-12-22 00:00:00 2021-12-22 07:58:09 [facility] Urinary tract infection without hematuria, site unspecifie d Urinary tract infection without hematuria, site unspecifie d Disease Resolve d 0 6-02 00:00: 00 2021-12-22 00:00:00 2021-12-22 07:57:57 [facility] Nausea and vomiting during Nausea and vomiting during Disease Resolve d 2021-0 5-10 00:00: 00 2021-12-22 00:00:00 2021-12-22 07:58:11 [facility] Nausea and vomiting during Nausea and vomiting during Disease Resolve d 2021-0 5-10 00:00: 00 2021-12-22 00:00:00 2021-12-22 07:58:11 [facility] Primigravi da in second trimester Primigravi da in second trimester Disease Resolve d 2021-0 5-05 00:00: 00 2021-12-22 00:00:00 2021-12-22 07:58:15 [facility] Obesity in Obesity in Disease Resolve d 2021-0 5-05 00:00: 00 2021-12-22 00:00:00 2021-12-22 07:58:13 [facility] Chronic hypertensi on affecting Chronic hypertensi on affecting Disease Resolve d 2021-0 4-24 00:00: 00 2021-12-22 00:00:00 2021-12-22 07:58:04 [facility] BMI 40.0-44.9, adult BMI 40.0-44.9, adult Disease Resolve d 2021-0 4-23 00:00: 00 2021-12-22 00:00:00 2021-12-22 15:59:13 [facility] 15 weeks gestation of 15 weeks gestation of Disease Resolve d 2021-0 4-12 00:00: 00 2021-12-22 00:00:00 2021-12-22 07:58:01 [facility] Hyperemesi s Hyperemesi s Disease Resolve d 2021-0 5-10 00:00: 00 2021-11-26 00:00:00 2021-11-26 09:09:11 [facility] Hyperbilir ubinemia Hyperbilir ubinemia Disease Resolve d 0 4-25 00:00: 00 2021-11-26 00:00:00 2021-11-26 09:09:06 [facility] Hypomagnes emia Hypomagnes emia Disease Resolve d 0 4-25 00:00: 00 2021-11-26 00:00:00 2021-11-26 09:09:05 [facility] Hypocalcem ia Hypocalcem ia Disease Resolve d 0 4-25 00:00: 00 2021-11-26 00:00:00 2021-11-26 09:09:03 [facility] Hypokalemi a Hypokalemi a Disease Resolve d 0 4-12 00:00: 00 2021-11-26 00:00:00 2021-11-26 09:09:30 [facility] Hyponatrem ia Hyponatrem ia Disease Resolve d 0 4-12 00:00: 00 2021-11-26 00:00:00 2021-11-26 09:09:33 [facility] Tachycardi a Tachycardi a Disease Resolve d 0 4-12 00:00: 00 2021-11-26 00:00:00 2021-11-26 09:09:30 [facility] Nausea and vomiting in prior to 22 weeks gestation Nausea and vomiting in prior to 22 weeks gestation Disease Resolve d 4-12 00:00: 00 2021-11-26 00:00:00 2021-11-26 09:09:43 [facility] Nausea and vomiting in prior to 22 weeks gestation Nausea and vomiting in prior to 22 weeks gestation Disease Resolve d 4-12 00:00: 00 2021-11-26 00:00:00 2021-11-26 09:09:43 [facility] Allergies, Adverse Reactions, Alerts Allergy Name Allergy Type Status Severity Reaction(s) Onset Date Inactive Date Treating Clinician Comments Source Egg Propensi ty to adverse reaction s Active Nausea and/or Vomiting - 00:00: 00 [facility] EGG DRUG INGREDI Active N/V 06-29 00:00: 00 [facility] Metoclop ramide Drug Allergy Active Extra pyramidal effects 05-31 00:00: 00 [facility] METOCLOP RAMIDE DRUG INGREDI Active Med EP Effects 12 00:00: 00 [facility] Family History Family Member Diagnosis Comments Start Date Stop Date Sourc e Natural mother Diabetes [facility] Natural mother Heart [facility] Social History Social Habit Start Date Stop Date Quantity Comments Source ASSERTION 2021-03-26 00:00:00 [facility] of tobacco use Current smoker [facility] Alcoholic beverage intake 2024-04-16 00:00:00 2024-04-16 00:00:00 Current drinker of alcohol (finding) [facility] Alcohol Comment 2023-11-26 00:00:00 2023-11-26 00:00:00 ocassional [facility] Tobacco use and exposure 2023-11-26 00:00:00 2023-11-26 00:00:00 Smokeless tobacco non-user [facility] History of Social function 2023-11-22 00:00:00 2023-11-22 00:00:00 [facility] Alcohol intake 2023-06-21 00:00:00 2023-06-21 00:00:00 Ex-drinker (finding) [facility] Exposure to SARS-CoV-2 (event) 2022-01-10 00:00:00 2022-01-20 14:04:00 Not sure [facility] Tobacco Comment 2021-09-15 00:00:00 2021-09-15 00:00:00 marijuana,no nicotine stopped for [facility] Sex assigned at 1995 00:00:00 1995 00:00:00 [facility] Smoking Status Start Date Stop Date Source Ex-smoker 2023-11-26 00:00:00 2023-11-26 [facility] Ordered Medication Name Filled Medication Name Start Date Stop Date Current Medication? Ordering Clinician Indication Dosage Frequency Signature (SIG) Comments Components Source ondansetron 4 mg disintegrat ing tablet 04-16 00:00: 00 Yes [id number] 4mg Take 1 tablet by mouth every 8 (eight) hours as needed for Nausea and Vomiting (N/V). [facility] naproxen (NAPROSYN) tablet 500 mg 04-12 11:15: 00 04-12 11:05 :00 No 500mg 500 mg, Oral, Once, 1 dose, On 04/12/24 at 0515, Routine [facility] butalbital- acetaminoph en-caff (ESGIC) 50-325-40 mg tablet 1 tablet 04-12 11:00: 00 04-12 11:05 :00 No 1{tbl} 1 tablet, Oral, ONCE, 1 dose, On 04/12/24 at 0500, RACHAEL [facility] chlorphenir amine (CHLORTABS) 4 mg tablet 04-12 00:00: 00 04-16 00:00 :00 No [id number] 4mg Take 1 tablet by mouth every 6 (six) hours as needed for Allergies. [facility] methylPREDN ISolone (MEDROL, MARCO ANTONIO,) 4 mg tablets 04-12 00:00: 00 04-16 00:00 :00 No [id number] Take by mouth SEE-INSTRU CTIONS. follow package directions [facility] phentermine -topiramate (QSYMIA) 7.5-46 mg per capsule 2-10 00:00: 00 Yes [id number] 104 1{capsu le} Take 1 capsule by mouth in the morning. Start 3.75mg qAM x 14 days; then increase to 7.5mg qAM. [facility] phentermine -topiramate (QSYMIA) 3.75-23 mg per capsule 2-10 00:00: 00 04-15 05:59 :00 Yes [id number] 104 1{capsu le} Take 1 capsule by mouth in the morning for 14 days. [facility] zolpidem 5 mg tablet - 00:00: 00 Yes [id number] 5mg Take 1 tablet by mouth at bedtime as needed for Insomnia. [facility] pantoprazol e 40 mg EC tablet 03-28 00:00: 00 Yes [id number] 40mg Take 1 tablet by mouth in the morning. [facility] HYDROcodone -acetaminop hen (NORCO) 10-325 mg tablet 1 tablet 03-16 09:30: 00 03-16 08:29 :00 No 1{tbl} 1 tablet, Oral, ONCE, 1 dose, On 03/16/24 at 0330, Routine [facility] cephALEXin (KEFLEX) capsule 500 mg 03-16 08:30: 00 03-16 08:29 :00 No 500mg 500 mg, Oral, ONCE, 1 dose, On 03/16/24 at 0230, RACHAEL, Reason for Anti-Infec tive: Documented Infection, Documented Infection Site: HEENT, Duration of Therapy: Once (ED) [facility] cephALEXin 500 mg capsule 03-16 00:00: 00 03-24 05:59 :00 No [id number] 500mg Take 1 capsule by mouth 4 (four) times daily for 7 days. [facility] indomethaci n 50 mg capsule 03-16 00:00: 00 03-24 05:59 :00 No [id number] 50mg Take 1 capsule by mouth in the morning and 1 capsule at noon and 1 capsule in the evening. Take with meals. Do all this for 7 days. [facility] tirzepatide , weight loss, 5 mg/0.5 mL subcutaneou s injection 03-05 00:00: 00 Yes [id number] 104 After 2.5mg qWeek x 4 Weeks, then increase to 5mg qWeek [facility] tirzepatide 2.5 mg/0.5 mL subcutaneou s injection pen 03-05 00:00: 00 04-16 00:00 :00 No [id number] 104 2.5mg inject 2.5 mg under the skin weekly. Start 2.5mg qWeek x 4 Weeks, then increase to 5mg qWeek x 4 Weeks, then increase to 7.5mg qWeek x 4 Weeks, the increase to 10mg qWeek. [facility] phentermine -topiramate 3.75-23 mg per capsule 03-05 00:00: 00 03-13 05:59 :00 No [id number] 104 1{capsu le} Take 1 capsule by mouth in the morning for 7 days. [facility] zolpidem 5 mg tablet 02-26 00:00: 00 03-28 00:00 :00 No [id number] 5mg Take 1 tablet by mouth at bedtime as needed for Insomnia. [facility] phentermine -topiramate (QSYMIA) 3.75-23 mg per capsule - 00:00: 00 03-05 00:00 :00 No [id number] 104 1{capsu le} Take 1 capsule by mouth in the morning. [facility] ondansetron (ZOFRAN-ODT ) disintegrat ing tablet 4 mg 02-21 09:45: 00 02-21 08:46 :00 No 4mg 4 mg, Oral, ONCE, 1 dose, On Sun02/22/24 at 0345, [facility] cefTRIAXone (ROCEPHIN) 1,000 mg in water for injection, sterile 10 mL IV Push 02-21 08:30: 00 02-21 08:31 :00 No 1000mg 1,000 mg, Intravenou s, ONCE, 1 dose, On Sun02/22/24 at 0230, 10 mL, Reason for Anti-Infec tive: Empiric Therapy for Suspected Infection, Empiric Therapy Site: Urine, Duration of therapy: Once (ED) [facility] iopamidol (ISOVUE 370-500 mL) injection 80 mL 02-21 08:30: 00 02-21 08:30 :00 No [id number] 80mL 80 mL, Intravenou s, ONCE, 1 dose, On Sun02/22/24 at 0230, Routine [facility] maalox/diph enhydrAMINE :lidocaine2 %viscous 1:1:1: suspension (COMPOUNDED ) 02-21 07:45: 00 02-21 07:36 :00 No 15mL 15 mL, Oral, ONCE, 1 dose, On Sun02/22/24 at 0145, [facility] NaCl 0.9% (NS) bolus infusion 1,000 mL 02-21 06:45: 00 02-21 08:11 :00 No 1000mL at 999 mL/hr, 1,000 mL, IV Infusion, ONCE, 1 dose, On Sun02/22/24 at 0045, [facility] morpHINE (4 mg/mL) injection 4 mg 02-21 06:00: 00 02-21 06:13 :00 No 4mg 4 mg, Slow IV Push, ONCE, 1 dose, On Sun02/22/24 at 0000, STAT [facility] ondansetron (ZOFRAN (PF)) injection 8 mg 02-21 06:00: 00 02-21 06:17 :00 No 8mg 8 mg, Slow IV Push, ONCE, 1 dose, On 1/3/25 at 0000, Administer over 2-5 Minutes, 4 mL [facility] cefdinir 300 mg capsule 1-03 00:00: 00 03-01 05:59 :00 No [id number] 300mg Take 1 capsule by mouth every 12 (twelve) hours for 7 days. [facility] ondansetron 4 mg disintegrat ing tablet 1-03 00:00: 00 02-26 00:00 :00 No [id number] 4mg Take 1 tablet by mouth every 8 (eight) hours as needed for Nausea and Vomiting (N/V). [facility] acetaminoph en (TYLENOL EXTRA STRENGTH) 500 mg tablet 2023-02 00:00: 00 02-26 00:00 :00 No [id number] 1000mg Take 2 tablets by mouth every 8 (eight) hours for 15 days. [facility] ibuprofen 800 mg tablet 2023-02 00:00: 00 02-26 00:00 :00 No [id number] 800mg Take 1 tablet by mouth every 8 (eight) hours for 15 days. [facility] HYDROcodone -acetaminop hen (NORCO 5) tablet 1 tablet 2023-02 18:30: 00 01-28 19:00 :00 No 1{tbl} 1 tablet, Oral, ONCE, 1 dose, On Sun01/29/24 at 1230, Routine, PACU [facility] lactated ringers IV infusion 1,000 mL 2023-02 18:30: 00 01-28 22:20 :16 No 1000mL at 50 mL/hr, 1,000 mL, IV Infusion, CONTINUOUS , Starting on Sun01/29/24 at 1230, Until Sun01/29/24 at 1620, Routine, PACU [facility] HYDROmorphO ne (DILAUDID) injection 0.2 mg 2023-02 18:19: 17 01-28 22:20 :16 No .2mg 0.2 mg, Slow IV Push, Q5MIN PRN, 10 doses, Starting on Sun01/29/24 at 1219, Until Sun01/29/24 at 1620, Routine, Pain (scale 7-10), PACU, Is this medication approved by a Faculty level provider? Yes, human geography faculty member approving Restricted medication : RADHA HURST [facility] FENTanyl (PF) (SUBLIMAZE) injection 25 mcg 2023-02 18:19: 17 01-28 22:20 :16 No 25ug 25 mcg, Slow IV Push, Q5MIN PRN, 4 doses, Starting on Sun01/29/24 at 1219, Until Sun01/29/24 at 1620, Routine, Pain Scale 4-6, PACU [facility] ondansetron (ZOFRAN (PF)) injection 4 mg 2023-02 18:19: 17 01-28 22:20 :16 No 4mg 4 mg, Slow IV Push, PRN, 1 dose, Starting on Sun01/29/24 at 1219, Until Sun01/29/24 at 1620, Administer over 2-5 Minutes, 2 mL, PACU [facility] bupivacaine -epinephrin e-pf (SENSORCAIN E W/EPINEPHRI NE) 0.25 %-1:200,000 30 mL, lidocaine 1% (PF) (XYLOCAINE) 30 mL 2023-02 16:57: 00 01-28 18:29 :17 No PRN, Starting on Sun01/29/24 at 1057, Intra-op [facility] sodium chloride 0.9 % irrigation solution 2023-02 16:56: 00 01-28 18:29 :17 No PRN, Starting on Sun01/29/24 at 1056, Until Sun01/29/24 at 1229, Intra-op [facility] acetaminoph en (TYLENOL) 325 mg tablet 2023-02 00:00: 00 02-05 05:59 :00 Yes [id number] 650mg Take 2 tablets by mouth every 6 (six) hours for 7 days. [facility] ibuprofen 800 mg tablet 2023-02 00:00: 00 02-05 05:59 :00 Yes [id number] 800mg Take 1 tablet by mouth every 6 (six) hours for 7 days. [facility] traMADoL 50 mg tablet 2023-02 00:00: 00 02-05 05:59 :00 Yes [id number] 50mg Take 1 tablet by mouth every 8 (eight) hours for 7 days. Indication s: acute pain, chronic pain [facility] HYDROcodone -acetaminop hen 5-325 mg tablet 2023-02 00:00: 00 02-05 05:59 :00 Yes [id number] 1{tbl} Take 1 tablet by mouth every 6 (six) hours as needed for Pain (scale 7-10) for up to 7 days. Indication s: acute pain [facility] phentermine 37.5 mg tablet 2023-02 00:00: 00 02-26 00:00 :00 No [id number] 104 37.5mg Take 1 tablet by mouth daily with breakfast. [facility] zolpidem 5 mg tablet 2023-02 00:00: 00 02-26 00:00 :00 No [id number] 5mg Take 1 tablet by mouth at bedtime as needed for Insomnia. [facility] ondansetron 8 mg tablet 2023-02 00:00: 00 02-26 00:00 :00 No [id number] 8mg Take 1 tablet by mouth every 8 (eight) hours as needed for Nausea and Vomiting (N/V). [facility] ketorolac (TORADOL) injection 30 mg 2023-02 11:30: 00 01-11 10:39 :00 No 30mg 30 mg, Slow IV Push, ONCE, 1 dose, On 01/12/24 at 0530, Routine [facility] fentanyl PF (SUBLIMAZE (PF)) injection 50 mcg 2023-02 11:15: 00 01-11 11:15 :00 No 50ug 50 mcg, Slow IV Push, ONCE, 1 dose, On 01/12/24 at 0515, Routine [facility] ondansetron (ZOFRAN (PF)) injection 4 mg 2023-02 10:30: 00 01-11 10:29 :00 No 4mg 4 mg, Slow IV Push, ONCE, 1 dose, On 01/12/24 at 0430, Administer over 2-5 Minutes, 2 mL [facility] fentanyl PF (SUBLIMAZE (PF)) injection 50 mcg 2023-02 10:30: 00 01-11 10:40 :00 No 50ug 50 mcg, Slow IV Push, ONCE, 1 dose, On 01/12/24 at 0430, RACHAEL [facility] ondansetron (ZOFRAN (PF)) injection 4 mg 2023-02 10:15: 00 01-11 10:07 :00 No 4mg 4 mg, Slow IV Push, ONCE, 1 dose, On 01/12/24 at 0415, Administer over 2-5 Minutes, 2 mL [facility] traMADoL (ULTRAM) 50 mg tablet 2023-02 00:00: 00 02-26 00:00 :00 No [id number] 50mg Take 1 tablet by mouth every 6 (six) hours as needed for Pain (scale 7-10). Indication s: acute pain [facility] dicyclomine 20 mg tablet 2023-02 00:00: 00 02-26 00:00 :00 No [id number] 20mg Take 1 tablet by mouth every 6 (six) hours as needed for Abdominal pain. [facility] ondansetron (ZOFRAN) 4 mg tablet 2023-02 00:00: 00 01-27 00:00 :00 No [id number] 4mg Take 1 tablet by mouth every 8 (eight) hours as needed for Nausea and Vomiting (N/V). [facility] ondansetron 8 mg tablet 2023-02 00:00: 00 01-24 00:00 :00 No [id number] 8mg Take 1 tablet by mouth every 8 (eight) hours as needed for Nausea and Vomiting (N/V). [facility] ondansetron 4 mg disintegrat ing tablet 2023-02 00:00: 00 01-10 00:00 :00 No [id number] 4mg Take 1 tablet by mouth every 8 (eight) hours as needed for Nausea and Vomiting (N/V). [facility] phentermine 37.5 mg tablet 2023-02 00:00: 00 01-24 00:00 :00 No [id number] 104 37.5mg Take 1 tablet by mouth daily with breakfast. [facility] zolpidem 5 mg tablet 2023-02 00:00: 00 01-24 00:00 :00 No [id number] 5mg Take 1 tablet by mouth at bedtime as needed for Insomnia. [facility] ondansetron 4 mg disintegrat ing tablet 2023-02 00:00: 00 01-09 00:00 :00 No [id number] 4mg Take 1 tablet by mouth every 8 (eight) hours as needed for Nausea and Vomiting (N/V). [facility] ondansetron 4 mg tablet 2023-02 00:00: 01-10 00:00 :00 No [id number] 4mg Take 1 tablet by mouth every 8 (eight) hours as needed for Nausea and Vomiting (N/V). [facility] TRAZODONE 100 mg tablet 2023-02 00:00: 00 02-26 00:00 :00 No [id number] 100mg TAKE 1 TABLET BY MOUTH EVERYDAY AT BEDTIME [facility] pantoprazol e 40 mg EC tablet 11-18 00:00: 00 03-28 00:00 :00 No [id number] 40mg Take 1 tablet by mouth in the morning. [facility] phentermine 37.5 mg tablet 11-18 00:00: 00 12-24 00:00 :00 No [id number] 104 37.5mg Take 1 tablet by mouth daily with breakfast. [facility] zolpidem 5 mg tablet 11-18 00:00: 00 12-24 00:00 :00 No [id number] 5mg Take 1 tablet by mouth at bedtime as needed for Insomnia. [facility] proMETHazin e (PHENERGAN) 12.5 mg in NS 50 mL IV piggyback (CNR) 11-17 15:30: 00 11-17 15:49 :00 No 12.5mg 12.5 mg, IV Piggyback, at 200 mL/hr Administer over 15 Minutes, ONCE, 1 dose, On Sun11/18/23 at 1030, [facility] morpHINE (4 mg/mL) injection 4 mg 11-17 15:30: 00 11-17 15:34 :00 No 4mg 4 mg, Slow IV Push, ONCE, 1 dose, On Sun11/18/23 at 1030, STAT [facility] ketorolac (TORADOL) injection 30 mg 11-17 15:00: 00 11-17 14:09 :00 No 30mg 30 mg, Slow IV Push, ONCE, 1 dose, On Sun11/18/23 at 1000, [facility] famotidine (PEPCID (PF)) injection 20 mg 11-17 14:15: 00 11-17 14:09 :00 No 20mg 20 mg, Slow IV Push, ONCE, 1 dose, On Sun11/18/23 at 0915, [facility] iopamidol (ISOVUE 370-500 mL) injection 100 mL 11-17 13:30: 00 11-17 13:45 :00 No [id number] 100mL 100 mL, Intravenou s, ONCE, 1 dose, On Sun11/18/23 at 0845, Routine [facility] NaCl 0.9% (NS) IV infusion 1,000 mL 11-17 13:00: 00 11-17 15:15 :00 No 1000mL at 999 mL/hr, Intravenou s, ONCE, 1 dose, On Sun11/18/23 at 0800, [facility] proMETHazin [facility] (PHENERGAN) 12.5 mg in NS 50 mL IV piggyback (CNR) 11-17 12:30: 00 11-17 13:33 :00 No 12.5mg 12.5 mg, IV Piggyback, at 200 mL/hr Administer over 15 Minutes, ONCE, 1 dose, On 11/18/23 at 0730, [facility] fentanyl PF (SUBLIMAZE (PF)) injection 100 mcg 11-17 11:15: 00 11-17 11:16 :00 No 100ug 100 mcg, Slow IV Push, ONCE, 1 dose, On 11/18/23 at 0615, Routine [facility] ondansetron (ZOFRAN (PF)) injection 8 mg 11-17 11:00: 00 11-17 11:10 :00 No 8mg 8 mg, Slow IV Push, ONCE, 1 dose, On Sun11/18/23 at 0600, RACHAEL [facility] sodium chloride (NS) injection 5 mL 11-17 10:51: 45 Yes 5mL 5 mL, Intravenou s, PRN, Starting on Sun11/18/23 at 0551, Until Discontinu ed, Routine, IV line flushing [facility] proMETHazin e 25 mg tablet 11-17 00:00: 00 02-26 00:00 :00 No [id number] 25mg Take 1 tablet by mouth every 6 (six) hours as needed for Nausea and Vomiting (N/V). [facility] traMADoL 50 mg tablet 11-17 00:00: 00 01-28 00:00 :00 No [id number] 50mg Take 1 tablet by mouth every 6 (six) hours as needed (pain). Indication s: acute pain [facility] zolpidem 5 mg tablet 11-17 00:00: 00 11-17 00:00 :00 No [id number] 5mg Take 1 tablet by mouth at bedtime as needed for Insomnia. [facility] KCL (KLOR-CON M20) tablet 20 mEq 11-07 19:30: 00 11-07 19:56 :00 No 20meq 20 mEq, Oral, ONCE, 1 dose, On Gabby 11/08/23 at 1430, [facility] proMETHazin e (PHENERGAN) 12.5 mg in NS 50 mL IV piggyback (CNR) 11-07 17:45: 00 11-07 18:53 :00 No 12.5mg 12.5 mg, IV Piggyback, at 200 mL/hr Administer over 15 Minutes, ONCE, 1 dose, On Gabby 11/08/23 at 1245, [facility] ondansetron (ZOFRAN (PF)) injection 4 mg 11-07 16:30: 00 11-07 16:38 :00 No 4mg 4 mg, Slow IV Push, ONCE, 1 dose, On Gabby 11/08/23 at 1130, [facility] famotidine (PEPCID (PF)) injection 20 mg 11-07 16:30: 00 11-07 16:38 :00 No 20mg 20 mg, Slow IV Push, ONCE, 1 dose, On Gabby 11/08/23 at 1130, [facility] NaCl 0.9% (NS) bolus infusion 1,000 mL 11-07 16:30: 00 11-07 19:53 :00 No 1000mL at 999 mL/hr, 1,000 mL, IV Infusion, ONCE, 1 dose, On Gabby 11/08/23 at 1130, [facility] morpHINE (4 mg/mL) injection 4 mg 11-07 15:45: 00 11-07 18:39 :00 No 4mg 4 mg, Slow IV Push, ONCE, 1 dose, On Gabby 11/08/23 at 1045, [facility] ondansetron 4 mg disintegrat ing tablet 11-07 00:00: 00 11-12 04:59 :00 No [id number] 4mg Take 1 tablet by mouth every 8 (eight) hours as needed for Nausea and Vomiting (N/V) for up to 4 days. [facility] zolpidem 5 mg tablet 8 00:00: 00 11-15 00:00 :00 No [id number] 5mg Take 1 tablet by mouth at bedtime as needed for Insomnia. [facility] ergocalcife rol, vitamin d2, (VITAMIN D2) 1,250 mcg (50,000 unit) capsule 10-15 00:00: 00 Yes [id number] 22254F Take 1 capsule by mouth weekly. [facility] phentermine 37.5 mg tablet 10-15 00:00: 00 11-18 00:00 :00 No [id number] 37.5mg Take 1 tablet by mouth daily with breakfast. [facility] ergocalcife rol, vitamin d2, (VITAMIN D2) 1,250 mcg (50,000 unit) capsule 10-02 00:00: 00 10-14 00:00 :00 No [id number] 18939C Take 1 capsule by mouth weekly. [facility] zolpidem 5 mg tablet 0 7 00:00: 00 10-15 00:00 :00 No [id number] 5mg Take 1 tablet by mouth at bedtime as needed for Insomnia. [facility] phentermine 37.5 mg tablet 0 725 00:00: 00 10-14 00:00 :00 No [id number] 37.5mg Take 1 tablet by mouth daily with breakfast. [facility] phentermine 37.5 mg tablet 2023-0 6-17 00:00: 00 09-11 00:00 :00 No [id number] 37.5mg Take 1 tablet by mouth daily with breakfast. [facility] zolpidem 5 mg tablet 2023-0 6-17 00:00: 00 09-11 00:00 :00 No [id number] 5mg Take 1 tablet by mouth at bedtime as needed for Insomnia. [facility] traZODone 100 mg tablet 2023-0 6-05 00:00: 00 12-09 00:00 :00 No [id number] 100mg Take 1 tablet by mouth at bedtime. [facility] acetaminoph en (TYLENOL) tablet 650 mg 06-20 17:30: 00 06-20 17:25 :00 No 650mg 650 mg, Oral, ONCE, 1 dose, On Gabby 06/21/23 at 1230, [facility] sulfamethox azole-trime thoprim 800-160 mg per tablet 06-20 00:00: 00 08-05 00:00 :00 No [id number] 1{tbl} Take 1 tablet by mouth every 12 (twelve) hours. [facility] phentermine 37.5 mg tablet 4-09 00:00: 00 08-05 00:00 :00 No [id number] 37.5mg Take 1 tablet by mouth daily with breakfast. [facility] traZODone 100 mg tablet 3-04 00:00: 00 07-24 00:00 :00 No [id number] 100mg Take 1 tablet by mouth at bedtime. [facility] phentermine 37.5 mg tablet 2-22 00:00: 00 05-28 00:00 :00 No [id number] 37.5mg Take 1 tablet by mouth daily with breakfast. [facility] zolpidem 5 mg tablet 2-15 00:00: 00 08-05 00:00 :00 No [id number] 5mg Take 1 tablet by mouth at bedtime as needed for Insomnia. [facility] phentermine 37.5 mg tablet 1-12 00:00: 00 04-11 00:00 :00 No [id number] 37.5mg Take 1 tablet by mouth daily with breakfast. [facility] zolpidem 5 mg tablet 0 1-02 00:00: 00 04-05 00:00 :00 No [id number] 5mg Take 1 tablet by mouth at bedtime as needed for Insomnia. [facility] phentermine 37.5 mg tablet 2022-02 00:00: 00 03-02 00:00 :00 No [id number] 37.5mg Take 1 tablet by mouth daily with breakfast. [facility] traZODone 100 mg tablet 2022-02 00:00: 00 04-22 00:00 :00 No [id number] 100mg Take 1 tablet by mouth at bedtime. [facility] phentermine 37.5 mg tablet 2022-02 00:00: 00 01-26 00:00 :00 No [id number] 37.5mg Take 1 tablet by mouth daily with breakfast. [facility] zolpidem 5 mg tablet 2022-02 00:00: 00 02-19 00:00 :00 No [id number] 5mg Take 1 tablet by mouth at bedtime as needed for Insomnia. [facility] TRAZODONE 50 mg tablet 2022-02 00:00: 00 01-24 00:00 :00 No [id number] 50mg TAKE 1 TABLET BY MOUTH EVERYDAY AT BEDTIME [facility] ramelteon 8 mg tablet 2022-02 00:00: 00 01-24 00:00 :00 No [id number] 8mg Take 1 tablet by mouth at bedtime. [facility] Doxepin 6 mg Tab 2022-02 00:00: 00 01-04 00:00 :00 No [id number] 6mg Take 6 mg by mouth at bedtime. [facility] ergocalcife rol, vitamin d2, (VITAMIN D2) 1,250 mcg (50,000 unit) capsule 2022-02 00:00: 00 09-30 00:00 :00 No [id number] 03666T Take 1 capsule by mouth weekly. [facility] traZODone 50 mg tablet 2022-02 00:00: 00 01-16 00:00 :00 No [id number] 50mg Take 1 tablet by mouth at bedtime. [facility] medroxyPROG ESTERone (DEPO-PROVE RA) syringe 150 mg 2021-02 2- 21:15: 00 01-20 20:41 :00 No [id number] 150mg [facility] NIFEdipine ER 30 mg tablet 2021-02 0-11 00:00: 00 01-20 00:00 :00 No [id number] 30mg Take 1 tablet by mouth in the morning. [facility] NIFEdipine ER tablet 30 mg 2021-02 0- 04:00: 00 Yes 30mg 30 mg, Oral, DAILY, First dose on 11/27/21 at 2300, Until Discontinu ed, Routine [facility] vitamin w/FA tablet 2021-02 00:00: 00 01-20 00:00 :00 No [id number] 1{tbl} Take 1 tablet by mouth in the morning. [facility] docusate 100 mg capsule 2021-02 00:00: 00 01-20 00:00 :00 No [id number] 200mg Take 2 capsules by mouth once daily as needed for Constipati on. [facility] ferrous sulfate 325 mg (65 mg iron) tablet 2021-02 00:00: 00 01-20 00:00 :00 No [id number] 325mg Take 1 tablet by mouth in the morning and 1 tablet in the evening. [facility] ibuprofen 600 mg tablet 2021-02 0 00:00: 00 01-20 00:00 :00 No [id number] 600mg Take 1 tablet by mouth every 6 (six) hours as needed (Pain). Take with food or milk. [facility] D5W 0.45% NaCl (1/2NS) IV infusion 1,000 mL 2021-02 19:38: 00 Yes 1000mL at 50 mL/hr, 1,000 mL, IV Infusion, CONTINUOUS , Starting on 11/27/21 at 1445, Until Discontinu ed, Routine [facility] HYDROcodone -acetaminop hen (NORCO 5) 5-325 mg tablet 1 tablet 2021-02 12:41: 25 Yes 1{tbl} 1 tablet, Oral, Q6HPRN, Starting on 11/27/21 at 0741, Until Discontinu ed, Routine, Pain (scale 7-10) [facility] ibuprofen (IBU) tablet 600 mg 2021-02 12:41: 25 Yes 600mg 600 mg, Oral, Q6HPRN, Starting on 11/27/21 at 0741, Until Discontinu ed, Routine, Pain (scale 4-6) [facility] acetaminoph en (TYLENOL) tablet 650 mg 2021-02 12:41: 25 Yes 650mg 650 mg, Oral, Q6HPRN, Starting on 11/27/21 at 0741, Until Discontinu ed, Routine, Pain (scale 1-3) [facility] diphenhydrA MINE (BENADRYL) tablet 25 mg 2021-02 12:41: 25 Yes 25mg 25 mg, Oral, Q6HPRN, Starting on 11/27/21 at 0741, Until Discontinu ed, Routine, Sleep, Itching [facility] ondansetron (ZOFRAN (PF)) injection 4 mg 2021-02 12:41: 25 Yes 4mg 4 mg, Slow IV Push, Q8HPRN, Starting on 11/27/21 at 0741, Until Discontinu ed, Routine, Nausea and Vomiting (N/V) [facility] simethicone (GAS RELIEF (SIMETHICON E)) chewable tablet 160 mg 2021-02 12:41: 25 Yes 160mg 160 mg, Oral, PC+HSPRN, Starting on 11/27/21 at 0741, Until Discontinu ed, Routine, Gas [facility] docusate (COLACE) capsule 200 mg 2021-02 12:41: 25 Yes 200mg 200 mg, Oral, QDAILYPRN, Starting on 11/27/21 at 0741, Until Discontinu ed, Routine, Constipati on [facility] magnesium hydroxide (MILK OF MAGNESIA) 400 mg/5 mL suspension 30 mL 2021-02 12:41: 25 Yes 30mL 30 mL, Oral, QDAILYPRN, Starting on 11/27/21 at 0741, Until Discontinu ed, Routine, Constipati on [facility] benzocaine- menthol (DERMOPLAST ) 20-0.5 % topical spray 2021-02 12:41: 25 Yes Topical, PRN, Starting on 11/27/21 at 0741, Until Discontinu ed, Routine, Perineum discomfort [facility] calcium gluconate 100 mg/mL (10%) injection 1,000 mg 2021-02 12:40: 21 Yes 1000mg 1,000 mg, Slow IV Push, PRN - SEE INSTRUCTIO NS, Starting on 11/27/21 at 0740, Until Discontinu ed, Routine, magnesium toxicity [facility] magnesium sulfate 4 mEq/mL (50 %) injection 32.48 mEq 2021-02 12:40: 21 Yes 4g 32.48 mEq (4 g), Slow IV Push, PRN - SEE INSTRUCTIO NS, Starting on 11/27/21 at 0740, Until Discontinu ed, Routine, For seizure activity (patient not on magnesium sulfate) [facility] magnesium sulfate 4 mEq/mL (50 %) injection 16.24 mEq 2021-02 12:40: 21 Yes 2g 16.24 mEq (2 g), Slow IV Push, PRN - SEE INSTRUCTIO NS, 2 doses, Starting on 11/27/21 at 0740, Until Discontinu ed, Routine, For seizure activity (patient already on magnesium sulfate) [facility] labetaloL (NORMODYNE) injection 20 mg 2021-02 [...] Hypertensi ve Emergency in [Order 4 End] [facility] oxytocin (PITOCIN) 30 units in NS 500 mL IV infusion 2021-02 0 02:10: 24 11-27 12:40 :54 No 2mU/min at 2-40 mL/hr, IV Infusion, TITRATE, Starting on 11/26/21 at 2110, Until 11/27/21 at 0740, Routine [facility] penicillin g pot in dextrose 3 million unit/50 mL RTU iv piggyback 3 Million Units 2021-02 0-08 22:15: 00 11-27 12:40 :54 No 310 3 Million Units, IV Piggyback, Q4H ABX, First dose on 11/26/21 at 1715, Until Discontinu ed, Administer over 60 Minutes, 50 mL
Reas on for Anti-Infec tive: Empiric Non-Surgic al Prophylaxi s
Durat ion of therapy: 72 hours [facility] fentaNYL-ro pivacaine 2 mcg/mL-0.1 % (PF) in NS 200 mL epidural infusion RTU 2021-02 20:46: 00 11-27 13:52 :31 No Epidural, ONCE INTRA PROCEDURE, Starting on 11/26/21 at 1546, Until 11/27/21 at 0852, Routine, Intra-op [facility] lidocaine-e pinephrine (XYLOCAINE W/EPINEPHRI NE) 1.5 %-1:200,000 injection 2021-02 20:43: 00 Yes Epidural, ONCE INTRA PROCEDURE, Starting on 11/26/21 at 1543, Until Discontinu ed, Routine, Intra-op [facility] penicillin g potassium 5 Million Units in NaCl 0.9% (NS) 100 mL MINI-BAG 2021-02 18:15: 00 11-26 19:13 :00 No 510 5 Million Units, IV Piggyback, ONCE, 1 dose, On 11/26/21 at 1315, Administer over 60 Minutes, 100 mL
Reas on for Anti-Infec tive: Empiric Non-Surgic al Prophylaxi s
Durat ion of therapy: 72 hours [facility] NaCl 0.9% (NS) IV infusion 1,000 mL 2021-02 18:00: 00 11-27 12:40 :54 No 1000mL at 50 mL/hr, IV Infusion, CONTINUOUS , Starting on 11/26/21 at 1300, Until 11/27/21 at 0740, Routine [facility] oxytocin (PITOCIN) 30 units in NS 500 mL IV infusion 2021-02 14:31: 25 11-27 02:11 :24 No 2mU/min at 2-40 mL/hr, IV Infusion, TITRATE, Starting on 11/26/21 at 0931, Until 11/26/21 at 2111, Routine [facility] FENTanyl PF (SUBLIMAZE (PF)) injection 100 mcg 2021-02 008 13:50: 58 11-27 12:40 :54 No 100ug 100 mcg, Slow IV Push, Q1HPRN, Starting on 11/26/21 at 0850, Until 11/27/21 at 0740, Routine, Pain (scale 4-6), Pain (scale 7-10) [facility] misoprostol (CYTOTEC) quarter-tab let 25 mcg 2021-02 0 13:45: 00 11-26 13:22 :00 No 25ug 25 mcg, Vaginal, ONCE, 1 dose, On 11/26/21 at 0845, Routine [facility] butalbital- acetaminoph en-caff (ESGIC) 50-325-40 mg tablet 1 tablet 2021-02 0 09:45: 00 11-26 08:57 :00 No 1{tbl} 1 tablet, Oral, ONCE NOW, 1 dose, On 11/26/21 at 0445, Routine [facility] magnesium sulfate in water for injection 20 gram/500 mL (4 %) IV infusion 2021-02 09:00: 00 Yes 2g/h 2 g/hr (50 mL/hr), IV Infusion, CONTINUOUS , Starting on 11/26/21 at 0400, Until Discontinu ed, Routine [facility] D5W 0.45% NaCl (1/2NS) IV infusion 1,000 mL 2021-02 09:00: 00 11-27 12:40 :54 No 1000mL at 75 mL/hr, 1,000 mL, IV Infusion, CONTINUOUS , Starting on 11/26/21 at 0400, Until 11/27/21 at 0740, Routine [facility] promethazin e 6.25 mg/5 mL solution 11-09 00:00: 00 11-28 00:00 :00 No [id number] 12.5mg Take 10 mL by mouth every 4 (four) hours as needed for Nausea and Vomiting (N/V). [facility] promethazin e 6.25 mg/5 mL solution 8 00:00: 00 11-09 00:00 :00 No [id number] 12.5mg Take 10 mL by mouth every 4 (four) hours as needed for Nausea and Vomiting (N/V). [facility] promethazin e 6.25 mg/5 mL solution 8-11 00:00: 00 10-18 00:00 :00 No [id number] 12.5mg Take 10 mL by mouth every 4 (four) hours as needed for Nausea and Vomiting (N/V). [facility] promethazin e 6.25 mg/5 mL solution 6-23 00:00: 00 09-15 00:00 :00 No [id number] 12.5mg Take 10 mL by mouth every 4 (four) hours as needed for Nausea and Vomiting (N/V). [facility] proMETHazin e 25 mg tablet 07-17 00:00: 00 09-15 00:00 :00 No [id number] 25mg Take 1 tablet by mouth every 6 (six) hours as needed for Nausea and Vomiting (N/V). [facility] promethazin e 6.25 mg/5 mL solution 06-24 00:00: 00 06-29 00:00 :00 No [id number] 12.5mg Take 10 mL by mouth every 4 (four) hours as needed for Nausea and Vomiting (N/V). [facility] vit 33-iron-fol ic-dha (SELECT-OB + DHA) 29 mg iron-1 mg -250 mg combo pack 06-23 00:00: 00 07-17 00:00 :00 No [id number] 1{packe t} Take 1 Packet by mouth daily. [facility] proMETHazin e 25 mg suppository 06-22 00:00: 00 09-15 00:00 :00 No [id number] 25mg Insert 1 Suppositor y into rectum every 4 (four) hours as needed for Nausea and Vomiting (N/V). [facility] Immunizations Ordered Immunization Name Filled Immunization Name Date Status Comments Source HPV9 2022-12-25 00:00:00 Completed [facility] HPV9 2022-12-25 00:00:00 Completed [facility] HPV9 2022-12-25 00:00:00 Completed [place] [id number] 2022-12-25 00:00:00 Completed [facility] HPV9 2022-12-25 00:00:00 Completed [facility] HPV9 2022-12-25 00:00:00 Completed [facility] HPV9 2022-12-25 00:00:00 Completed [facility] TDAP 2021-09-29 00:00:00 Completed [facility] TDAP 2021-09-29 00:00:00 Completed [facility] TDAP 2021-09-29 00:00:00 Completed [facility] TDAP 2021-09-29 00:00:00 Completed [facility] TDAP 2021-09-29 00:00:00 Completed [facility] TDAP 2021-09-29 00:00:00 Completed [facility] TDAP 2021-09-29 00:00:00 Completed [facility] TDAP 2021-09-29 00:00:00 Completed [facility] TDAP 2021-09-29 00:00:00 Completed [facility] TDAP 2021-09-29 00:00:00 Completed [facility] TDAP 2021-09-29 00:00:00 Completed [facility] TDAP 2021-09-29 00:00:00 Completed [facility] TDAP 2021-09-29 00:00:00 Completed [facility] TDAP 2021-09-29 00:00:00 Completed [facility] TDAP 2021-09-29 00:00:00 Completed [facility] TDAP 2021-09-29 00:00:00 Completed [facility] TDAP 2021-09-29 00:00:00 Completed [facility] TDAP 2021-09-29 00:00:00 Completed [facility] TDAP 2021-09-29 00:00:00 Completed [facility] TDAP 2021-09-29 00:00:00 Completed [facility] TDAP 2021-09-29 00:00:00 Completed [facility] TDAP 2021-09-29 00:00:00 Completed [facility] TDAP 2021-09-29 00:00:00 Completed [facility] TDAP 2021-09-29 00:00:00 Completed [facility] TDAP 2009-10-06 00:00:00 Completed HEPATITIS A 2009-10-06 [...] [facility] TDAP Unknown Completed [facility] TDAP Unknown Completed [facility] TDAP Unknown Completed [facility] TDAP Unknown Completed [facility] TDAP Unknown Completed [facility] DTaP, Unspecified Formulation Unknown Completed [facility] HEPATITIS A Unknown Completed [facility] Hep B, Adol or Pedi Dosage Unknown Completed [facility] HIB 4 Dose Schedule Unknown Completed [facility] Haemophilus influenzae type b vaccine, conjugate unspecified formulation Unknown Completed [facility] HPV Unknown Completed [facility] Meningococcal Polysaccharide (groups A, C, Y and W-135) conjugate vaccine (MCV4P) Unknown Completed [facility] MMR Unknown Completed [facility] IPV Unknown Completed [facility] Poliovirus, Live, Oral, Trivalent Unknown Completed [facility] HPV9 Unknown Completed [facility] HEPATITIS A Unknown Completed [facility] Haemophilus influenzae type b vaccine, conjugate unspecified formulation Unknown Completed [facility] HPV Unknown Completed [facility] Meningococcal Polysaccharide (groups A, C, Y and W-135) conjugate vaccine (MCV4P) Unknown Completed [facility] HPV9 Unknown Completed [facility] TDAP Unknown Completed [facility] DTaP, Unspecified Formulation Unknown Completed [facility] Hep B, Adol or Pedi Dosage Unknown Completed [facility] HIB 4 Dose Schedule Unknown Completed [facility] MMR Unknown Completed [facility] IPV Unknown Completed [facility] Poliovirus, Live, Oral, Trivalent Unknown Completed [facility] TDAP Unknown Completed [facility] DTaP, Unspecified Formulation Unknown Completed [facility] HEPATITIS A Unknown Completed [facility] Hep B, Adol or Pedi Dosage Unknown Completed [facility] HIB 4 Dose Schedule Unknown Completed [facility] Haemophilus influenzae type b vaccine, conjugate unspecified formulation Unknown Completed [facility] HPV Unknown Completed [facility] Meningococcal Polysaccharide (groups A, C, Y and W-135) conjugate vaccine (MCV4P) Unknown Completed [facility] MMR Unknown Completed [facility] IPV Unknown Completed [facility] Poliovirus, Live, Oral, Trivalent Unknown Completed [facility] HPV9 Unknown Completed [facility] TDAP Unknown Completed [facility] DTaP, Unspecified Formulation Unknown Completed [facility] HEPATITIS A Unknown Completed [facility] Hep B, Adol or Pedi Dosage Unknown Completed [facility] HIB 4 Dose Schedule Unknown Completed [facility] Haemophilus influenzae type b vaccine, conjugate unspecified formulation Unknown [facility]pleted [facility] [facility] HPV Unknown Completed [facility] Meningococcal Polysaccharide (groups A, C, Y and W-135) conjugate vaccine (MCV4P) Unknown Completed [facility] MMR Unknown Completed [facility] IPV Unknown Completed [facility] Poliovirus, Live, Oral, Trivalent Unknown Completed [facility] HPV9 Unknown Completed [facility] TDAP Unknown Completed [facility] DTaP, Unspecified Formulation Unknown Completed [facility] HEPATITIS A Unknown Completed [facility] Hep B, Adol or Pedi Dosage Unknown Completed [facility] HIB 4 Dose Schedule Unknown Completed [facility] Haemophilus influenzae type b vaccine, conjugate unspecified formulation Unknown Completed [facility] HPV Unknown Completed [facility] Meningococcal Polysaccharide (groups A, C, Y and W-135) conjugate vaccine (MCV4P) Unknown Completed [facility] MMR Unknown Completed [facility] IPV Unknown Completed [facility] Poliovirus, Live, Oral, Trivalent Unknown Completed [facility] HPV9 Unknown Completed [facility] TDAP Unknown Completed [facility] DTaP, Unspecified Formulation Unknown Completed [facility] HEPATITIS A Unknown Completed [facility] Hep B, Adol or Pedi Dosage Unknown Completed [facility] HIB 4 Dose Schedule Unknown Completed [facility] Haemophilus influenzae type b vaccine, conjugate unspecified formulation Unknown Completed [facility] HPV Unknown Completed [facility] Meningococcal Polysaccharide (groups A, C, Y and W-135) conjugate vaccine (MCV4P) Unknown Completed [facility] MMR Unknown Completed [facility] IPV Unknown Completed [facility] Poliovirus, Live, Oral, Trivalent Unknown Completed [facility] HPV9 Unknown Completed [facility] HEPATITIS A Unknown Completed [facility] Haemophilus influenzae type b vaccine, conjugate unspecified formulation Unknown Completed [facility] HPV Unknown Completed [facility] Meningococcal Polysaccharide (groups A, C, Y and W-135) conjugate vaccine (MCV4P) Unknown Completed [facility] HPV9 Unknown Completed [facility] TDAP Unknown Completed [facility] DTaP, Unspecified Formulation Unknown Completed [facility] Hep B, Adol or Pedi Dosage Unknown Completed [facility] HIB 4 Dose Schedule Unknown Completed [facility] MMR Unknown Completed [facility] IPV Unknown Completed [facility] Poliovirus, Live, Oral, Trivalent Unknown Completed [facility] TDAP Unknown Completed [facility] DTaP, Unspecified Formulation Unknown Completed [facility] HEPATITIS A Unknown Completed [facility] Hep B, Adol or Pedi Dosage Unknown Completed [facility] HIB 4 Dose Schedule Unknown Completed [facility] Haemophilus influenzae type b vaccine, conjugate unspecified formulation Unknown Completed [facility] HPV Unknown Completed [facility] Meningococcal Polysaccharide (groups A, C, Y and W-135) conjugate vaccine (MCV4P) Unknown Completed [facility] MMR Unknown Completed [facility] IPV Unknown Completed [facility] Poliovirus, Live, Oral, Trivalent Unknown Completed [facility] HPV9 Unknown Completed [facility] TDAP Unknown Completed [facility] DTaP, Unspecified Formulation Unknown Completed [facility] HEPATITIS A Unknown Completed [facility] Hep B, Adol or Pedi Dosage Unknown Completed [facility] HIB 4 Dose Schedule Unknown Completed [facility] Haemophilus influenzae type b vaccine, conjugate unspecified formulation Unknown Completed [facility] HPV Unknown Completed [facility] Meningococcal Polysaccharide (groups A, C, Y and W-135) conjugate vaccine (MCV4P) Unknown Completed [facility] MMR Unknown Completed [facility] IPV Unknown Completed [facility] Poliovirus, Live, Oral, Trivalent Unknown Completed [facility] HPV9 Unknown Completed [facility] TDAP Unknown Completed [facility] DTaP, Unspecified Formulation Unknown Completed [facility] HEPATITIS A Unknown Completed [facility] Hep B, Adol or Pedi Dosage Unknown Completed [facility] HIB 4 Dose Schedule Unknown Completed [facility] Haemophilus influenzae type b vaccine, conjugate unspecified formulation Unknown Completed [facility] HPV Unknown Completed [facility] Meningococcal Polysaccharide (groups A, C, Y and W-135) conjugate vaccine (MCV4P) Unknown Completed [facility] MMR Unknown Completed [facility] IPV Unknown Completed [facility] Poliovirus, Live, Oral, Trivalent Unknown Completed [facility] HPV9 Unknown Completed [facility] TDAP Unknown Completed [facility] DTaP, Unspecified Formulation Unknown Completed [facility] HEPATITIS A Unknown Completed [facility] Hep B, Adol or Pedi Dosage Unknown Completed [facility] HIB 4 Dose Schedule Unknown Completed [facility] Haemophilus influenzae type b vaccine, conjugate unspecified formulation Unknown Completed [facility] HPV Unknown Completed [facility] Meningococcal Polysaccharide (groups A, C, Y and W-135) conjugate vaccine (MCV4P) Unknown Completed [facility] MMR Unknown Completed [facility] IPV Unknown Completed [facility] Poliovirus, Live, Oral, Trivalent Unknown Completed [facility] HPV9 Unknown Completed [facility] HEPATITIS A Unknown Completed [facility] Haemophilus influenzae type b vaccine, conjugate unspecified formulation Unknown Completed [facility] HPV Unknown Completed [facility] Meningococcal Polysaccharide (groups A, C, Y and W-135) conjugate vaccine (MCV4P) Unknown Completed [facility] HPV9 Unknown Completed [facility] TDAP Unknown Completed [facility] DTaP, Unspecified Formulation Unknown Completed [facility] Hep B, Adol or Pedi Dosage Unknown Completed [facility] HIB 4 Dose Schedule Unknown Completed [facility] MMR Unknown Completed [facility] IPV Unknown Completed [facility] Poliovirus, Live, Oral, Trivalent Unknown Completed [facility] TDAP Unknown Completed [facility] DTaP, Unspecified Formulation Unknown Completed [facility] HEPATITIS A Unknown Completed [facility] Hep B, Adol or Pedi Dosage Unknown Completed [facility] HIB 4 Dose Schedule Unknown Completed [facility] Haemophilus influenzae type b vaccine, conjugate unspecified formulation Unknown Completed [facility] HPV Unknown Completed [facility] Meningococcal Polysaccharide (groups A, C, Y and W-135) conjugate vaccine (MCV4P) Unknown Completed [facility] MMR Unknown Completed [facility] IPV Unknown Completed [facility] Poliovirus, Live, Oral, Trivalent Unknown Completed [facility] HPV9 Unknown Completed [facility] TDAP Unknown Completed [facility] DTaP, Unspecified Formulation Unknown Completed [facility] HEPATITIS A Unknown Completed [facility] Hep B, Adol or Pedi Dosage Unknown Completed [facility] HIB 4 Dose Schedule Unknown Completed [facility] Haemophilus influenzae type b vaccine, conjugate unspecified formulation Unknown Completed [facility] HPV Unknown Completed [facility] Meningococcal Polysaccharide (groups A, C, Y and W-135) conjugate vaccine (MCV4P) Unknown Completed [facility] MMR Unknown Completed [facility] IPV Unknown Completed [facility] Poliovirus, Live, Oral, Trivalent Unknown Completed [facility] HPV9 Unknown Completed [facility] TDAP Unknown Completed [facility] DTaP, Unspecified Formulation Unknown Completed [facility] HEPATITIS A Unknown Completed [facility] Hep B, Adol or Pedi Dosage Unknown Completed [facility] HIB 4 Dose Schedule Unknown Completed [facility] Haemophilus influenzae type b vaccine, conjugate unspecified formulation Unknown Completed [facility] HPV Unknown Completed [facility] Meningococcal Polysaccharide (groups A, C, Y and W-135) conjugate vaccine (MCV4P) Unknown Completed [facility] MMR Unknown Completed [facility] IPV Unknown Completed [facility] Poliovirus, Live, Oral, Trivalent Unknown Completed [facility] HPV9 Unknown Completed [facility] TDAP Unknown Completed [facility] DTaP, Unspecified Formulation Unknown Completed [facility] HEPATITIS A Unknown Completed [facility] Hep B, Adol or Pedi Dosage Unknown Completed [facility] HIB 4 Dose Schedule Unknown Completed [facility] Haemophilus influenzae type b vaccine, conjugate unspecified formulation Unknown Completed [facility] HPV Unknown Completed [facility] Meningococcal Polysaccharide (groups A, C, Y and W-135) conjugate vaccine (MCV4P) Unknown Completed [facility] MMR Unknown Completed [facility] IPV Unknown Completed [facility] Poliovirus, Live, Oral, Trivalent Unknown Completed [facility] HPV9 Unknown Completed [facility] HEPATITIS A Unknown Completed [facility] Haemophilus influenzae type b vaccine, conjugate unspecified formulation Unknown Completed [facility] HPV Unknown Completed [facility] Meningococcal Polysaccharide (groups A, C, Y and W-135) conjugate vaccine (MCV4P) Unknown Completed [facility] HPV9 Unknown Completed [facility] TDAP Unknown Completed [facility] DTaP, Unspecified Formulation Unknown Completed [facility] HEPATITIS A Unknown Completed [facility] Hep B, Adol or Pedi Dosage Unknown Completed [facility] HIB 4 Dose Schedule Unknown Completed [facility] Haemophilus influenzae type b vaccine, conjugate unspecified formulation Unknown Completed [facility] HPV Unknown Completed [facility] Meningococcal Polysaccharide (groups A, C, Y and W-135) conjugate vaccine (MCV4P) Unknown Completed [facility] MMR Unknown Completed [facility] IPV Unknown Completed [facility] Poliovirus, Live, Oral, Trivalent Unknown Completed [facility] HPV9 Unknown Completed [facility] TDAP Unknown Completed [facility] DTaP, Unspecified Formulation Unknown Completed [facility] HEPATITIS A Unknown Completed [facility] Hep B, Adol or Pedi Dosage Unknown Completed [facility] HIB 4 Dose Schedule Unknown Completed [facility] Haemophilus influenzae type b vaccine, conjugate unspecified formulation Unknown Completed [facility] HPV Unknown Completed [facility] Meningococcal Polysaccharide (groups A, C, Y and W-135) conjugate vaccine (MCV4P) Unknown Completed [facility] MMR Unknown Completed [facility] IPV Unknown Completed [facility] Poliovirus, Live, Oral, Trivalent Unknown Completed [facility] HPV9 Unknown Completed [facility] TDAP Unknown Completed [facility] DTaP, Unspecified Formulation Unknown Completed [facility] HEPATITIS A Unknown Completed [facility] Hep B, Adol or Pedi Dosage Unknown Completed [facility] HIB 4 Dose Schedule Unknown Completed [facility] Haemophilus influenzae type b vaccine, conjugate unspecified formulation Unknown Completed [facility] HPV Unknown Completed [facility] Meningococcal Polysaccharide (groups A, C, Y and W-135) conjugate vaccine (MCV4P) Unknown Completed [facility] MMR Unknown Completed [facility] IPV Unknown Completed [facility] Poliovirus, Live, Oral, Trivalent Unknown Completed [facility] HPV9 Unknown Completed [facility] TDAP Unknown Completed [facility] DTaP, Unspecified Formulation Unknown Completed [facility] HEPATITIS A Unknown Completed [facility] Hep B, Adol or Pedi Dosage Unknown Completed [facility] HIB 4 Dose Schedule Unknown Completed [facility] Haemophilus influenzae type b vaccine, conjugate unspecified formulation Unknown Completed [facility] HPV Unknown Completed [facility] Meningococcal Polysaccharide (groups A, C, Y and W-135) conjugate vaccine (MCV4P) Unknown Completed [facility] MMR Unknown Completed [facility] IPV Unknown Completed [facility] Poliovirus, Live, Oral, Trivalent Unknown Completed [facility] HPV9 Unknown Completed [facility] TDAP Unknown Completed [facility] DTaP, Unspecified Formulation Unknown Completed [facility] Hep B, Adol or Pedi Dosage Unknown Completed [facility] HIB 4 Dose Schedule Unknown Completed [facility] MMR Unknown Completed [facility] IPV Unknown Completed [facility] Poliovirus, Live, Oral, Trivalent Unknown Completed [facility] TDAP Unknown Completed [facility] DTaP, Unspecified Formulation Unknown Completed [facility] HEPATITIS A Unknown Completed [facility] Hep B, Adol or Pedi Dosage Unknown Completed [facility] HIB 4 Dose Schedule Unknown Completed [facility] Haemophilus influenzae type b vaccine, conjugate unspecified formulation Unknown Completed [facility] HPV Unknown Completed [facility] Meningococcal Polysaccharide (groups A, C, Y and W-135) conjugate vaccine (MCV4P) Unknown Completed [facility] MMR Unknown Completed [facility] IPV Unknown Completed [facility] Poliovirus, Live, Oral, Trivalent Unknown Completed [facility] HPV9 Unknown Completed [facility] TDAP Unknown Completed [facility] DTaP, Unspecified Formulation Unknown Completed [facility] HEPATITIS A Unknown Completed [facility] Hep B, Adol or Pedi Dosage Unknown Completed [facility] HIB 4 Dose Schedule Unknown Completed [facility] Haemophilus influenzae type b vaccine, conjugate unspecified formulation Unknown Completed [facility] HPV Unknown Completed [facility] Meningococcal Polysaccharide (groups A, C, Y and W-135) conjugate vaccine (MCV4P) Unknown Completed [facility] MMR Unknown Completed [facility] IPV Unknown Completed [facility] Poliovirus, Live, Oral, Trivalent Unknown Completed [facility] HPV9 Unknown Completed [facility] TDAP Unknown Completed [facility] DTaP, Unspecified Formulation Unknown Completed [facility] HEPATITIS A Unknown Completed [facility] Hep B, Adol or Pedi Dosage Unknown Completed [facility] HIB 4 Dose Schedule Unknown Completed [facility] Haemophilus influenzae type b vaccine, conjugate unspecified formulation Unknown Completed [facility] HPV Unknown Completed [facility] Meningococcal Polysaccharide (groups A, C, Y and W-135) conjugate vaccine (MCV4P) Unknown Completed [facility] MMR Unknown Completed [facility] IPV Unknown Completed [facility] Poliovirus, Live, Oral, Trivalent Unknown Completed [facility] HPV9 Unknown Completed [facility] TDAP Unknown Completed [facility] DTaP, Unspecified Formulation Unknown Completed [facility] HEPATITIS A Unknown Completed [facility] Hep B, Adol or Pedi Dosage Unknown Completed [facility] HIB 4 Dose Schedule Unknown Completed [facility] Haemophilus influenzae type b vaccine, conjugate unspecified formulation Unknown Completed [facility] HPV Unknown Completed [facility] Meningococcal Polysaccharide (groups A, C, Y and W-135) conjugate vaccine (MCV4P) Unknown Completed [facility] MMR Unknown Completed [facility] IPV Unknown Completed [facility] Poliovirus, Live, Oral, Trivalent Unknown Completed [facility] HPV9 Unknown Completed [facility] TDAP Unknown Completed [facility] DTaP, Unspecified Formulation Unknown Completed [facility] HEPATITIS A Unknown Completed [facility] Hep B, Adol or Pedi Dosage Unknown Completed [facility] HIB 4 Dose Schedule Unknown Completed [facility] Haemophilus influenzae type b vaccine, conjugate unspecified formulation Unknown Completed [facility] HPV Unknown Completed [facility] Meningococcal Polysaccharide (groups A, C, Y and W-135) conjugate vaccine (MCV4P) Unknown Completed [facility] MMR Unknown Completed [facility] IPV Unknown Completed [facility] Poliovirus, Live, Oral, Trivalent Unknown Completed [facility] HPV9 Unknown Completed [facility] TDAP Unknown Completed [facility] DTaP, Unspecified Formulation Unknown Completed [facility] HEPATITIS A Unknown Completed [facility] Hep B, Adol or Pedi Dosage Unknown Completed [facility] HIB 4 Dose Schedule Unknown Completed [facility] Haemophilus influenzae type b vaccine, conjugate unspecified formulation Unknown Completed [facility] HPV Unknown Completed [facility] Meningococcal Polysaccharide (groups A, C, Y and W-135) conjugate vaccine (MCV4P) Unknown Completed [facility] MMR Unknown Completed [facility] IPV Unknown Completed [facility] Poliovirus, Live, Oral, Trivalent Unknown Completed [facility] HPV9 Unknown Completed [facility] TDAP Unknown Completed [facility] DTaP, Unspecified Formulation Unknown Completed [facility] HEPATITIS A Unknown Completed [facility] Hep B, Adol or Pedi Dosage Unknown Completed [facility] HIB 4 Dose Schedule Unknown Completed [facility] Haemophilus influenzae type b vaccine, conjugate unspecified formulation Unknown [facility] [facility] HPV Unknown Completed [facility] Meningococcal Polysaccharide (groups A, C, Y and W-135) conjugate vaccine (MCV4P) Unknown Completed [facility] MMR Unknown Completed [facility] IPV Unknown Completed [facility] Poliovirus, Live, Oral, Trivalent Unknown Completed [facility] HPV9 Unknown Completed [facility] TDAP Unknown Completed [facility] DTaP, Unspecified Formulation Unknown Completed [facility] HEPATITIS A Unknown Completed [facility] Hep B, Adol or Pedi Dosage Unknown Completed [facility] HIB 4 Dose Schedule Unknown Completed [facility] Haemophilus influenzae type b vaccine, conjugate unspecified formulation Unknown Completed [facility] HPV Unknown Completed [facility] Meningococcal Polysaccharide (groups A, C, Y and W-135) conjugate vaccine (MCV4P) Unknown Completed [facility] MMR Unknown Completed [facility] IPV Unknown Completed [facility] Poliovirus, Live, Oral, Trivalent Unknown Completed [facility] HPV9 Unknown Completed [facility] HEPATITIS A [facility], conjugate unspecified formulation Unknown Completed [facility] HPV Unknown Completed [facility] Meningococcal Polysaccharide (groups A, C, Y and W-135) conjugate vaccine (MCV4P) Unknown Completed [facility] HPV9 Unknown Completed [facility] TDAP Unknown Completed [facility] DTaP, Unspecified Formulation Unknown Completed [facility] Hep B, Adol or Pedi Dosage Unknown Completed [facility] HIB 4 Dose Schedule Unknown Completed [facility] MMR Unknown Completed [facility] IPV Unknown Completed [facility] Poliovirus, Live, Oral, Trivalent Unknown Completed [facility] HEPATITIS A Unknown Completed [facility] Haemophilus influenzae type b vaccine, conjugate unspecified formulation Unknown Completed [facility] HPV Unknown Completed [facility] Meningococcal Polysaccharide (groups A, C, Y and W-135) conjugate vaccine (MCV4P) Unknown Completed [facility] HPV9 Unknown Completed [facility] TDAP Unknown Completed [facility] DTaP, Unspecified Formulation Unknown Completed [facility] Hep B, Adol or Pedi Dosage Unknown Completed [facility] HIB 4 Dose Schedule Unknown Completed [facility] MMR Unknown Completed [facility] IPV Unknown Completed [facility] Poliovirus, Live, Oral, Trivalent Unknown Completed [facility] HEPATITIS A Unknown Completed [facility] Haemophilus influenzae type b vaccine, conjugate unspecified formulation Unknown Completed [facility] HPV Unknown Completed [facility] Meningococcal Polysaccharide (groups A, C, Y and W-135) conjugate vaccine (MCV4P) Unknown Completed [facility] HPV9 Unknown Completed [facility] TDAP Unknown Completed [facility] DTaP, Unspecified Formulation Unknown Completed [facility] Hep B, Adol or Pedi Dosage Unknown Completed [facility] HIB 4 Dose Schedule Unknown Completed [facility] MMR Unknown Completed [facility] IPV Unknown Completed [facility] Poliovirus, Live, Oral, Trivalent Unknown Completed [facility] TDAP Unknown Completed [facility] DTaP, Unspecified Formulation Unknown Completed [facility] HEPATITIS A Unknown Completed [facility] Hep B, Adol or Pedi Dosage Unknown Completed [facility] HIB 4 Dose Schedule Unknown Completed [facility] Haemophilus influenzae type b vaccine, conjugate unspecified formulation Unknown Completed [facility] HPV Unknown Completed [facility] Meningococcal Polysaccharide (groups A, C, Y and W-135) conjugate vaccine (MCV4P) Unknown Completed [facility] MMR Unknown Completed [facility] IPV Unknown Completed [facility] Poliovirus, Live, Oral, Trivalent Unknown Completed [facility] HPV9 Unknown Completed [facility] TDAP Unknown Completed [facility] DTaP, Unspecified Formulation Unknown Completed [facility] HEPATITIS A Unknown Completed [facility] Hep B, Adol or Pedi Dosage Unknown Completed [facility] HIB 4 Dose Schedule Unknown Completed [facility] Haemophilus influenzae type b vaccine, conjugate unspecified formulation Unknown Completed [facility] HPV Unknown Completed [facility] Meningococcal Polysaccharide (groups A, C, Y and W-135) conjugate vaccine (MCV4P) Unknown Completed [facility] MMR Unknown Completed [facility] IPV Unknown Completed [facility] Poliovirus, Live, Oral, Trivalent Unknown Completed [facility] HPV9 Unknown Completed [facility] TDAP Unknown Completed [facility] DTaP, Unspecified Formulation Unknown Completed [facility] HEPATITIS A Unknown Completed [facility] Hep B, Adol or Pedi Dosage Unknown Completed [facility] HIB 4 Dose Schedule Unknown Completed [facility] Haemophilus influenzae type b vaccine, conjugate unspecified formulation Unknown Completed [facility] HPV Unknown Completed [facility] Meningococcal Polysaccharide (groups A, C, Y and W-135) conjugate vaccine (MCV4P) Unknown Completed [facility] MMR Unknown Completed [facility] IPV Unknown Completed [facility] Poliovirus, Live, Oral, Trivalent Unknown Completed [facility] HPV9 Unknown Completed [facility] TDAP Unknown Completed [facility] DTaP, Unspecified Formulation Unknown Completed [facility] HEPATITIS A Unknown Completed [facility] Hep B, Adol or Pedi Dosage Unknown Completed [facility] HIB 4 Dose Schedule Unknown Completed [facility] Haemophilus influenzae type b vaccine, conjugate unspecified formulation Unknown Completed [facility] HPV Unknown Completed [facility] Meningococcal Polysaccharide (groups A, C, Y and W-135) conjugate vaccine (MCV4P) Unknown Completed [facility] MMR Unknown Completed [facility] IPV Unknown Completed [facility] Poliovirus, Live, Oral, Trivalent Unknown Completed [facility] HPV9 Unknown Completed [facility] TDAP Unknown Completed [facility] DTaP, Unspecified Formulation Unknown Completed [facility] HEPATITIS A Unknown Completed [facility] Hep B, Adol or Pedi Dosage Unknown Completed [facility] HIB 4 Dose Schedule Unknown Completed [facility] Haemophilus influenzae type b vaccine, conjugate unspecified formulation Unknown Completed [facility] HPV Unknown Completed [facility] Meningococcal Polysaccharide (groups A, C, Y and W-135) conjugate vaccine (MCV4P) Unknown Completed [facility] MMR Unknown Completed [facility] IPV Unknown Completed [facility] Poliovirus, Live, Oral, Trivalent Unknown Completed [facility] HPV9 Unknown Completed [facility] Vital Signs Vital Name Observation Time Observation Value Comments S ource Systolic blood pressure 2024-04-16 17:18:00 110 mm[Hg] [facility] Diastolic blood pressure 2024-04-16 17:18:00 79 mm[Hg] [facility] Heart rate 2024-04-16 17:18:00 67 /min [facility] Body temperature 2024-04-16 17:18:00 36.17 Ava [facility] Respiratory rate 2024-04-16 17:18:00 18 /min [facility] Body height 2024-04-16 17:18:00 165.1 cm [facility] Body weight 2024-04-16 17:18:00 112.81 kg [facility] BMI 2024-04-16 17:18:00 41.39 kg/m2 [facility] Oxygen saturation in Arterial blood by Pulse oximetry 2024-04-16 17:18:00 100 /min [facility] Systolic blood pressure 2024-04-12 11:05:00 138 mm[Hg] [facility] Diastolic blood pressure 2024-04-12 11:05:00 90 mm[Hg] [facility] Heart rate 2024-04-12 11:05:00 92 /min [facility] Body temperature 2024-04-12 11:05:00 36.78 Ava [facility] Respiratory rate 2024-04-12 11:05:00 17 /min [facility] Oxygen saturation in Arterial blood by Pulse oximetry 2024-04-12 11:05:00 98 /min [facility] Body height 2024-04-12 10:30:00 165.1 cm [facility] Body weight 2024-04-12 10:30:00 108.863 kg [facility] BMI 2024-04-12 10:30:00 39.94 kg/m2 [facility] Systolic blood pressure 2024-03-16 08:17:00 152 mm[Hg] [facility] Diastolic blood pressure 2024-03-16 08:17:00 114 mm[Hg] [facility] Heart rate 2024-03-16 08:17:00 114 /min [facility] Body temperature 2024-03-16 08:17:00 36.78 Ava [facility] Respiratory rate 2024-03-16 08:17:00 20 /min [facility] Body height 2024-03-16 08:17:00 165.1 cm [facility] Body weight 2024-03-16 08:17:00 104.781 kg [facility] BMI 2024-03-16 08:17:00 38.44 kg/m2 [facility] Oxygen saturation in Arterial blood by Pulse oximetry 2024-03-16 08:17:00 100 /min [facility] Systolic blood pressure 2024-02-27 16:52:00 118 mm[Hg] [facility] Diastolic blood pressure 2024-02-27 16:52:00 82 mm[Hg] [facility] Heart rate 2024-02-27 16:52:00 113 /min [facility] Body temperature 2024-02-27 16:52:00 36.28 Ava [facility] Respiratory rate 2024-02-27 16:52:00 18 /min [facility] Body height 2024-02-27 16:52:00 166.4 cm [facility] Body weight 2024-02-27 16:52:00 117.164 kg [facility] BMI 2024-02-27 16:52:00 42.33 kg/m2 [facility] Oxygen saturation in Arterial blood by Pulse oximetry 2024-02-27 16:52:00 99 /min [facility] Systolic blood pressure 2024-02-22 08:00:00 172 mm[Hg] [facility] Diastolic blood pressure 2024-02-22 08:00:00 90 mm[Hg] [facility] Heart rate 2024-02-22 08:00:00 89 /min [facility] Body temperature 2024-02-22 08:00:00 36.89 Ava [facility] Respiratory rate 2024-02-22 08:00:00 20 /min [facility] Oxygen saturation in Arterial blood by Pulse oximetry 2024-02-22 08:00:00 100 /min [facility] Body height 2024-02-22 05:52:00 165.1 cm [facility] Body weight 2024-02-22 05:52:00 108.863 kg [facility] BMI 2024-02-22 05:52:00 39.94 kg/m2 [facility] Systolic blood pressure 2024-01-29 19:50:00 125 mm[Hg] [facility] Diastolic blood pressure 2024-01-29 19:50:00 85 mm[Hg] [facility] Heart rate 2024-01-29 19:50:00 103 /min [facility] Respiratory rate 2024-01-29 19:50:00 15 /min [facility] Oxygen saturation in Arterial blood by Pulse oximetry 2024-01-29 19:50:00 96 /min [facility] Body temperature 2024-01-29 18:30:00 36.33 Ava [facility] Body height 2024-01-21 21:15:00 165.1 cm [facility] Body weight 2024-01-21 21:15:00 122.471 kg [facility] BMI 2024-01-21 21:15:00 44.93 kg/m2 [facility] Systolic blood pressure 2024-01-29 18:35:00 127 mm[Hg] [facility] Diastolic blood pressure 2024-01-29 18:35:00 82 mm[Hg] [facility] Heart rate 2024-01-29 18:35:00 114 /min [facility] Respiratory rate 2024-01-29 18:35:00 18 /min [facility] Oxygen saturation in Arterial blood by Pulse oximetry 2024-01-29 18:35:00 100 /min [facility] Body temperature 2024-01-29 18:30:00 36.33 Ava [facility] Body height 2024-01-21 21:15:00 165.1 cm [facility] Body weight 2024-01-21 21:15:00 122.471 kg [facility] BMI 2024-01-21 21:15:00 44.93 kg/m2 [facility] Systolic blood pressure 2024-01-12 11:25:00 156 mm[Hg] [facility] Diastolic blood pressure 2024-01-12 11:25:00 110 mm[Hg] [facility] Respiratory rate 2024-01-12 11:25:00 12 /min [facility] Oxygen saturation in Arterial blood by Pulse oximetry 2024-01-12 11:25:00 97 /min [facility] Heart rate 2024-01-12 11:15:00 88 /min [facility] Body temperature 2024-01-12 09:59:00 36.5 Ava [facility] Body height 2024-01-12 09:59:00 165.1 cm [facility] Body weight 2024-01-12 09:59:00 122.471 kg [facility] BMI 2024-01-12 09:59:00 44.93 kg/m2 [facility] Systolic blood pressure 2024-01-07 17:05:00 136 mm[Hg] [facility] Diastolic blood pressure 2024-01-07 17:05:00 99 mm[Hg] [facility] Heart rate 2024-01-07 17:05:00 109 /min [facility] Oxygen saturation in Arterial blood by Pulse oximetry 2024-01-07 17:05:00 100 /min [facility] Body temperature 2024-01-07 17:02:00 36.39 Ava [facility] Respiratory rate 2024-01-07 17:02:00 18 /min [facility] Body height 2024-01-07 17:02:00 165.1 cm [facility] Body weight 2024-01-07 17:02:00 122.471 kg [facility] BMI 2024-01-07 17:02:00 44.93 kg/m2 [facility] Systolic blood pressure 2024-01-03 17:27:00 111 mm[Hg] [facility] Diastolic blood pressure 2024-01-03 17:27:00 77 mm[Hg] [facility] Heart rate 2024-01-03 17:27:00 99 /min [facility] Body temperature 2024-01-03 17:27:00 36.5 Ava [facility] Respiratory rate 2024-01-03 17:27:00 18 /min [facility] Body height 2024-01-03 17:27:00 165.1 cm [facility] Body weight 2024-01-03 17:27:00 120.203 kg [facility] BMI 2024-01-03 17:27:00 44.10 kg/m2 [facility] Oxygen saturation in Arterial blood by Pulse oximetry 2024-01-03 17:27:00 99 /min [facility] Systolic blood pressure 2023-12-24 17:35:00 118 mm[Hg] [facility] Diastolic blood pressure 2023-12-24 17:35:00 80 mm[Hg] [facility] Heart rate 2023-12-24 17:35:00 90 /min [facility] Respiratory rate 2023-12-24 17:35:00 15 /min [facility] Oxygen saturation in Arterial blood by Pulse oximetry 2023-12-24 17:35:00 96 /min [facility] Body temperature 2023-12-24 17:05:00 36 Ava [facility] Body height 2023-12-24 16:37:00 165.1 cm [facility] Body weight 2023-12-24 16:37:00 122.154 kg [facility] BMI 2023-12-24 16:37:00 44.81 kg/m2 [facility] Systolic blood pressure 2023-12-24 17:05:00 100 mm[Hg] [facility] Diastolic blood pressure 2023-12-24 17:05:00 56 mm[Hg] [facility] Heart rate 2023-12-24 17:05:00 89 /min [facility] Body temperature 2023-12-24 17:05:00 36 Ava [facility] Respiratory rate 2023-12-24 17:05:00 16 /min [facility] Oxygen saturation in Arterial blood by Pulse oximetry 2023-12-24 17:05:00 94 /min [facility] Body height 2023-12-24 16:37:00 165.1 cm [facility] Body weight 2023-12-24 16:37:00 122.154 kg [facility] BMI 2023-12-24 16:37:00 44.81 kg/m2 [facility] Systolic blood pressure 2023-11-27 19:10:00 111 mm[Hg] [facility] Diastolic blood pressure 2023-11-27 19:10:00 76 mm[Hg] [facility] Heart rate 2023-11-27 19:10:00 111 /min [facility] Respiratory rate 2023-11-27 19:10:00 18 /min [facility] Body height 2023-11-27 19:10:00 165.1 cm [facility] Body weight 2023-11-27 19:10:00 124.286 kg [facility] BMI 2023-11-27 19:10:00 45.60 kg/m2 [facility] Systolic blood pressure 2023-11-26 20:40:00 112 mm[Hg] [facility] Diastolic blood pressure 2023-11-26 20:40:00 74 mm[Hg] [facility] Heart rate 2023-11-26 20:40:00 103 /min [facility] Body temperature 2023-11-26 20:40:00 36.39 Ava [facility] Body height 2023-11-26 20:40:00 165.1 cm [facility] Body weight 2023-11-26 20:40:00 123.923 kg [facility] BMI 2023-11-26 20:40:00 45.46 kg/m2 [facility] Systolic blood pressure 2023-11-22 18:07:00 134 mm[Hg] [facility] Diastolic blood pressure 2023-11-22 18:07:00 89 mm[Hg] [facility] Heart rate 2023-11-22 18:07:00 126 /min [facility] Body temperature 2023-11-22 18:07:00 36.28 Ava [facility] Respiratory rate 2023-11-22 18:07:00 18 /min [facility] Body height 2023-11-22 18:07:00 165.1 cm [facility] Body weight 2023-11-22 18:07:00 125.102 kg [facility] BMI 2023-11-22 18:07:00 45.90 kg/m2 [facility] Oxygen saturation in Arterial blood by Pulse oximetry 2023-11-22 18:07:00 98 /min [facility] Systolic blood pressure 2023-11-19 14:38:00 127 mm[Hg] [facility] Diastolic blood pressure 2023-11-19 14:38:00 86 mm[Hg] [facility] Heart rate 2023-11-19 14:38:00 107 /min [facility] Body temperature 2023-11-19 14:38:00 36.33 Ava [facility] Respiratory rate 2023-11-19 14:38:00 18 /min [facility] Body height 2023-11-19 14:38:00 165.1 cm [facility] Body weight 2023-11-19 14:38:00 123.741 kg [facility] BMI 2023-11-19 14:38:00 45.40 kg/m2 [facility] Oxygen saturation in Arterial blood by Pulse oximetry 2023-11-19 14:38:00 98 /min [facility] Systolic blood pressure 2023-11-18 16:30:00 156 mm[Hg] [facility] Diastolic blood pressure 2023-11-18 16:30:00 113 mm[Hg] [facility] Heart rate 2023-11-18 16:30:00 88 /min [facility] Respiratory rate 2023-11-18 16:30:00 18 /min [facility] Oxygen saturation in Arterial blood by Pulse oximetry 2023-11-18 16:30:00 98 /min [facility] Body temperature 2023-11-18 10:28:00 36.72 Ava [facility] Body height 2023-11-18 10:27:00 165.1 cm [facility] Body weight 2023-11-18 10:27:00 122.471 kg [facility] BMI 2023-11-18 10:27:00 44.93 kg/m2 [facility] Systolic blood pressure 2023-11-08 20:00:00 123 mm[Hg] [facility] Diastolic blood pressure 2023-11-08 20:00:00 91 mm[Hg] [facility] Respiratory rate 2023-11-08 20:00:00 17 /min [facility] Heart rate 2023-11-08 19:00:00 75 /min [facility] Oxygen saturation in Arterial blood by Pulse oximetry 2023-11-08 19:00:00 100 /min [facility] Body temperature 2023-11-08 17:00:00 36.83 Ava [facility] Body height 2023-11-08 15:16:00 165.1 cm [facility] Body weight 2023-11-08 15:16:00 122.471 kg [facility] BMI 2023-11-08 15:16:00 44.93 kg/m2 [facility] Systolic blood pressure 2023-08-06 19:07:00 135 mm[Hg] [facility] Diastolic blood pressure 2023-08-06 19:07:00 93 mm[Hg] [facility] Heart rate 2023-08-06 19:04:00 81 /min [facility] Body temperature 2023-08-06 19:04:00 36.11 Ava [facility] Respiratory rate 2023-08-06 19:04:00 18 /min [facility] Body height 2023-08-06 19:04:00 165.1 cm [facility] Body weight 2023-08-06 19:04:00 140.66 kg [facility] BMI 2023-08-06 19:04:00 51.60 kg/m2 [facility] Oxygen saturation in Arterial blood by Pulse oximetry 2023-08-06 19:04:00 100 /min [facility] Systolic blood pressure 2023-06-21 16:24:00 156 mm[Hg] [facility] Diastolic blood pressure 2023-06-21 16:24:00 98 mm[Hg] [facility] Heart rate 2023-06-21 16:24:00 94 /min [facility] Body temperature 2023-06-21 16:24:00 37.22 Ava [facility] Respiratory rate 2023-06-21 16:24:00 16 /min [facility] Body height 2023-06-21 16:24:00 165.1 cm [facility] Body weight 2023-06-21 16:24:00 127.007 kg [facility] BMI 2023-06-21 16:24:00 46.59 [facility]terial [facility] by Pulse oximetry 2023-06-21 16:24:00 100 /min [facility] Systolic blood pressure 2023-01-24 20:58:00 132 mm[Hg] [facility] Diastolic blood pressure 2023-01-24 20:58:00 96 mm[Hg] [facility] Heart rate 2023-01-24 20:56:00 95 /min [facility] Body temperature 2023-01-24 20:56:00 36.67 Ava [facility] Respiratory rate 2023-01-24 20:56:00 18 /min [facility] Body height 2023-01-24 20:56:00 165.1 cm Univ [facility] Body weight 2023-01-24 20:56:00 138.937 kg Univ [facility] BMI 2023-01-24 20:56:00 50.97 kg[facility]m2 [facility] in Arterial blood by Pulse oximetry 2023-01-24 20:56:00 100 /min [facility] Systolic blood pressure 2022-12-25 19:43:00 131 mm[Hg] [facility] Diastolic blood pressure 2022-12-25 19:43:00 86 mm[Hg] [facility] Heart rate 2022-12-25 19:43:00 72 /min [facility] Body temperature 2022-12-25 19:43:00 36.28 Ava [facility] Respiratory rate 2022-12-25 19:43:00 16 /min [facility] Body height 2022-12-25 19:43:00 165.1 cm [facility] 2022-12-25 19:43:00 138.347 kg [facility] BMI 2022-12-25 19:43:00 50.75 kg/m2 [facility]xygen saturation in Arterial blood by Pulse oximetry 2022-12-25 19:43:00 99 /min [facility] Systolic blood pressure 2022-01-20 20:03:00 135 mm[Hg] [facility] Diastolic blood pressure 2022-01-20 20:03:00 87 mm[Hg] [facility] Heart rate 2022-01-20 20:03:00 87 /min [facility] Body temperature 2022-01-20 20:03:00 36.56 Ava [facility] Respiratory rate 2022-01-20 20:03:00 17 /min [facility] Body height 2022-01-20 20:03:00 165.1 cm [facility] Body weight 2022-01-20 20:03:00 118.706 kg [facility] BMI 2022-01-20 20:03:00 43.55 kg/m2 [facility] Systolic blood pressure 2021-12-22 13:14:00 125 mm[Hg] [facility] Diastolic blood pressure 2021-12-22 13:14:00 86 mm[Hg] [facility] Heart rate 2021-12-22 13:14:00 96 /min [facility] Body temperature 2021-12-22 13:14:00 36.61 Ava [facility] Respiratory rate 2021-12-22 13:14:00 20 /min [facility] Body height 2021-12-22 13:14:00 165.1 cm [facility] Body weight 2021-12-22 13:14:00 108.41 kg [facility] BMI 2021-12-22 13:14:00 39.77 kg/m2 [facility] Systolic blood pressure 2021-11-29 12:00:00 142 mm[Hg] [facility] Diastolic blood pressure 2021-11-29 12:00:00 87 mm[Hg] [facility] Heart rate 2021-11-29 12:00:00 79 /min [facility] Body temperature 2021-11-29 12:00:00 36.72 Ava [facility] Respiratory rate 2021-11-29 12:00:00 18 /min [facility] Oxygen saturation in Arterial blood by Pulse oximetry 2021-11-29 12:00:00 100 /min [facility] Body height 2021-11-26 08:32:00 165.1 cm [facility] Body weight 2021-11-26 08:32:00 114.034 kg [facility] BMI 2021-11-26 08:32:00 41.84 kg/m2 [facility] Systolic blood pressure 2021-11-23 14:45:00 133 mm[Hg] [facility] Diastolic blood pressure 2021-11-23 14:45:00 102 mm[Hg] [facility] Heart rate 2021-11-23 14:42:00 77 /min [facility] Body temperature 2021-11-23 14:42:00 36.33 Ava [facility] Respiratory rate 2021-11-23 14:42:00 18 /min [facility] Body height 2021-11-23 14:42:00 165.1 cm [facility] Body weight 2021-11-23 14:42:00 114.17 kg [facility] BMI 2021-11-23 14:42:00 41.89 kg/m2 [facility] Systolic blood pressure 2021-11-11 15:03:00 120 mm[Hg] [facility] Diastolic blood pressure 2021-11-11 15:03:00 82 mm[Hg] [facility] Heart rate 2021-11-11 14:58:00 105 /min [facility] Body temperature 2021-11-11 14:57:00 36.33 Ava [facility] Respiratory rate 2021-11-11 14:57:00 18 /min [facility] Body height 2021-11-11 14:57:00 165.1 cm [facility] Body weight 2021-11-11 14:57:00 113.541 kg [facility] BMI 2021-11-11 14:57:00 41.65 kg/m2 [facility] Systolic blood pressure 2021-10-27 23:55:00 129 mm[Hg] [facility] Diastolic blood pressure 2021-10-27 23:55:00 76 mm[Hg] [facility] Heart rate 2021-10-27 23:55:00 88 /min [facility] Oxygen saturation in Arterial blood by Pulse oximetry 2021-10-27 23:55:00 96 /min [facility] Body temperature 2021-10-27 23:14:00 37 Ava [facility] Respiratory rate 2021-10-27 23:14:00 18 /min [facility] Body height 2021-10-27 22:26:00 165.1 cm [facility] Body weight 2021-10-27 22:26:00 111.131 kg [facility] BMI 2021-10-27 22:26:00 40.77 kg/m2 [facility] Systolic blood pressure 2021-10-27 18:08:00 140 mm[Hg] [facility] Diastolic blood pressure 2021-10-27 18:08:00 94 mm[Hg] [facility] Heart rate 2021-10-27 18:07:00 88 /min [facility] Body temperature 2021-10-27 18:07:00 35.61 Ava [facility] Respiratory rate 2021-10-27 18:07:00 18 /min [facility] Body weight 2021-10-27 18:07:00 110.224 kg [facility] BMI 2021-10-27 18:07:00 40.44 kg/m2 [facility] Systolic blood pressure 2024-03-16 08:17:00 152 mm[Hg] [facility] Diastolic blood pressure 2024-03-16 08:17:00 114 mm[Hg] [facility] Heart rate 2024-03-16 08:17:00 114 /min [facility] Body temperature 2024-03-16 08:17:00 36.78 Ava [facility] Respiratory rate 2024-03-16 08:17:00 20 /min [facility] Body height 2024-03-16 08:17:00 165.1 cm [facility] Body weight 2024-03-16 08:17:00 104.781 kg [facility] BMI 2024-03-16 08:17:00 38.44 kg/m2 [facility] Oxygen saturation in Arterial blood by Pulse oximetry 2024-03-16 08:17:00 100 /min [facility] Procedures Procedure Date / Time Performed Performing Clinician Source RAPID STREP SCREEN FOR GROUP A 2024-03-23 2 10:33:00 Angus Dwyer [facility] INFLUENZA A/B RSV COVID NAAT 2024-04-12 10:33:00 Angus Dwyer [facility] [place] INJECTION AA&/STRD TRIGEM INAL NERVE EACH BRANCH 2024-03-16 08:31:23 Aster Lee [facility] [place] INJECTION AA&/STRD TRIGEM INAL NERVE EACH BRANCH 2024-03-16 08:31:23 Aster Lee [facility] URINE CULTURE 2024-02-22 08:11:00 Shorty Zambrano [facility] CT ABDOMEN PELVIS W CONTRAST 2024-02-22 07:32:12 Shorty Zambrano [facility] CT ABDOMEN PELVIS W CONTRAST 2024-02-22 07:32:12 Shorty Zambrano [facility] POCT TEST 2024-02-22 06:51:00 Shorty Zambrano [facility] POCT TEST 2024-02-22 06:51:00 Shorty Zambrano [facility] URINALYSIS 2024-02-22 06:48:00 Shorty Zambrano [facility] URINALYSIS 2024-02-22 06:48:00 Shorty Zambrano [facility] LIPASE 2024-02-22 06:08:00 Shorty Zambrano [facility] COMP. METABOLIC PANEL ([id number]) 2024-02-22 06:08:00 Shorty Zambrano [facility] CBC WITH DIFF 2024-02-22 06:08:00 Shorty Zambrano [facility] CBC WITH DIFF 2024-02-22 06:08:00 Shorty Zambrano [facility] COMP. METABOLIC PANEL ([id number]) 2024-02-22 06:08:00 Shorty Zambrano [facility] LIPASE 2024-02-22 06:08:00 Shorty Zambrano [facility] SURGICAL PATHOLOGY EXAM 2024-01-29 18:00:00 Eva Bryan [facility] INTUBATION 2024-01-29 16:39:00 Barbara Cartwright [facility] POCT TEST 2024-01-29 16:18:00 Gianni Lopez [facility] POCT TEST 2024-01-29 16:18:00 John [facility] POCT TEST 2024-01-29 16:18[facility] [id number] [facility] [place] LAP[facility] SURG CHOLECYSTECTOMY 2024-01-29 16:15:00 Eva Bryan [facility] [id number] - [place] LAPAROSCOPY SURG CHOLECYSTECTOMY 2024-01-29 16:15:00 Eva Bryan [facility] POCT TEST 2024-01-12 10:32:00 Caro Bauer [facility] POCT TEST 2024-01-12 10:32:00 Caro Bauer [facility] LIPASE 2024-01-12 10:06:00 Caro Bauer [facility] COMP. METABOLIC PANEL ([id number]) 2024-01-12 10:06:00 Caro Bauer [facility] CBC WITH DIFF 2024-01-12 10:06:00 Caro Bauer [facility] CBC WITH DIFF 2024-01-12 10:06:00 Caro Bauer [facility] COMP. METABOLIC PANEL ([id number]) 2024-01-12 10:06:00 Caro Bauer [facility] LIPASE 2024-01-12 10:06:00 Caro Bauer [facility] ENDOSCOPY PROCEDURE DOCUMENTATION 2023-0206 15:14:36 Doctor Unassigned, [place] [facility] EGD (ENDO) 2023-12-24 17:08:17 Jeimy [facility] EGD (ENDO) 2023-12-24 17:08:17 Jeimy [facility] SURGICAL PATHOLOGY EXAM 2023-12-24 16:57:00 Yisel Hart [facility] ESOPHAGOGASTRODUODENOSCOPY 2023-12-24 16:36:00 Yisel Hart [facility] US OVARY TORSION 2023-11-18 16:33:50 Kelly Simms [facility] URINALYSIS 2023-11-18 15:15:00 Caro Bauer [facility] CT ABDOMEN PELVIS W CONTRAST 2023-11-18 13:38:59 Caro Bauer [facility] LIPASE 2023-11-18 11:10:00 Caro Bauer [facility] TEST, SERUM 2023-11-18 11:10:00 Caro Bauer [facility] COMP. METABOLIC PANEL ([id number]) 2023-11-18 11:10:00 Caro Bauer [facility] CBC WITH DIFF 2023-11-18 11:10:00 Caro Bauer [facility] COMP. METABOLIC PANEL ([id number]) 2023-11-08 16:43:00 Maame [facility] LIPASE 2023-11-08 16:01:00 Tiff Isabel [facility] CBC WITH DIFF 2023-11-08 16:01:00 Tiff Isabel [facility] URINALYSIS 2023-11-08 16:01:00 [facility]ame [facility] POCT TEST 2023-11-08 16:01:00 Maame [facility] ZINC, SERUM 2023-08-06 19:42:00 Rodrigoi-Franklin [facility] VITAMIN B6, PLASMA 2023-08-06 19:42:00 Jeimy [facility] FREE T4 2023-08-06 19:42:00 Obi-Franklin, [facility] THYROID STIMULATING HORMONE 2023-08-06 19:42:00 [facility] COMP. METABOLIC PANEL ([id number]) 2023-08-06 19:42:00 [facility] CBC WITH DIFF 2023-08-06 19:42:00 [facility] GLYCOSYLATED HEMOGLOBIN (A1C) 2023-08-06 19:42:00 [facility] VITAMIN D, 25-OH 2023-08-06 19:42:00 [facility] FREE T3 2023-08-06 19:42:00 [facility] POCT TEST 2023-06-21 16:30:00 Bonita Trivedi [facility] URINALYSIS 2023-06-21 16:29:00 Bonita Trivedi [facility] INSURANCE CORRESPONDENCE 2023-01-15 06:01:00 Doctor Unassigned, [place] [facility] INSURANCE CORRESPONDENCE 2023-01-06 06:01:00 Doctor Unassigned, [place] [facility] HCV ANTIBODY 2022-12-25 20:30:00 [facility] GARDASIL 9 (HPV 9V) VACCINE 2022-12-25 20:04:37 [facility] POCT TEST 2022-01-20 20:18:00 Jacinta Voss [facility] DME/SUPPLY JUSTIFICATION 2022-01-03 06:01:00 Doctor Unassigned, [place] [facility] CBC WITH DIFF 2021-11-28 08:48:00 Adum, Vanessa Cowan [facility] CENTRAL NEURAXIAL BLOCK 2021-11-26 20:52:15 Wilver Owens [facility] HB ABO GROUPING 2021-11-26 09:30:00 Adum, Vanessa Cowan [facility] LACTATE DEHYDROGENASE 2021-11-26 09:29:00 Adum, Vanessa Cowan [facility] URIC ACID 2021-11-26 09:29:00 Adum, Vanessa Cowan [facility] COMP. METABOLIC PANEL ([id number]) 2021-11-26 09:29:00 Adum, Vanessa Cowan [facility] URINE DRUG (IMMUNOASSAY) - COMPREHENSIVE DRUG SCREEN 2021-11-26 09:29:00 Adum, Vanessa Cowan [facility] CBC WITH DIFF 2021-11-26 09:29:00 Adum, Vanessa Cowan [facility] URINALYSIS 2021-11-26 09:29:00 Adum, Vanessa Cowan [facility] HEPATITIS B SURFACE ANTIGEN 2021-11-26 09:29:00 Adum, Vanessa Cowan [facility] ADC OR THOMPSON ONLY - RPR 2021-11-26 09:29:00 Adum, Vanessa Cowan [facility] HIV 1/2 AG-AB WITH REFLEX 2021-11-26 09:29:00 Adum, Vanessa Cowan [facility] HIV 1/2 AG-AB WITH REFLEX 2021-11-26 09:29:00 Adum, Vanessa Cowan [facility] CONSENT/REFUSAL FOR DIAGNOSI S AND TREATMENT 2021-11-26 08:08:59 Doctor Unassigned, [place] [facility] POCT URINALYSIS 2021-11-23 14:56:00 Rodrick Pete [facility] POCT URINALYSIS 2021-11-11 14:58:00 Rodrick Pete [facility] CONSENT/REFUSAL FOR DIAGNOSI S AND TREATMENT 2021-10-27 22:13:12 Doctor Unassigned, [place] [facility] POCT URINALYSIS 2021-10-27 18:21:00 Rodrick Pete [facility] LAB ONLY PAP SMEAR-LIQUID BASED 20:43:00 Rodrick Pete [facility] Encounters Start Date/Time End Date/Time Encounter Type Admission Type Attending [facility] Care Facility Care Department Encounter ID Source 2024-05-28 10:40:00 2024-05-28 10:40:00 Outpatient R OBI-FRANKLIN , JESS [facility] [id number] [facility] 2024-04-16 11:00:00 2024-04-16 11:53:16 Outpatient R OBI-FRANKLIN , JESS OBI[facility]FRANKLIN [facility] [id number] [facility] 2024-04-16 11:00:00 2024-04-16 11:53:16 [facility] 1.840.114 350.1.13.10 4.2.7.2.686 [id number] [facility] 2024-04-12 04:34:00 2024-04-12 05:45:00 Emergency X ANGUS DWYER [facility] [id number] [facility] 2024-04-12 04:34:00 2024-04-12 05:45:[address] [facility] 1.840.114 350.1.13.10 4.2.7.2.686 [id number] [facility] 2024-04-07 00:00:00 2024-04-07 09:53:08 [facility] 1.2840.114 350.1.13.10 4.2.7.2.686 [id number] [facility] 2023-12-26 00:00:00 2024-04-05 06:41:10 Orders Only Doctor Unassigned, [place] Doctor Unassigned, [place] [facility] 1.2840.114 350.1.13.10 4.2.7.2.686 [id number] [facility] 2024-03-30 00:00:00 2024-03-31 12:14:42 Patient Secure Msg Obsuzanne-Jess Cottrell 1.2.840.1 54881.1.1 3.104.2.7 .3.828259 .8 [id number] [facility] 2024-03-28 00:00:00 2024-03-30 12:51:45 Refill Obsuzanne-Jess Cottrell 1.2.840.1 46369.1.1 3.104.2.7 .3.521227 .8 [id number] [facility] 2024-03-28 00:00:00 2024-03-28 15:21:20 Refill Arun-Jess Cottrell 1.2.840.1 47328.1.1 3.104.2.7 .3.655874 .8 [id number] [facility] 2024-03-27 13:20:00 2024-03-27 13:20:00 Outpatient R OBI-FRANKLIN JESS OBI-FRANKLIN , JESS [facility] [id number] [facility] 2024-03-26 00:00:00 2024-03-26 10:49:07 Telephone Jess Munson 1.2.840.1 26367.1.1 3.104.2.7 .3.171793 .8 [id number] [facility] 2024-03-18 00:00:00 2024-03-18 10:19:58 Patient Secure Msg Obsuzanne-Jess Cottrell 1.2.840.1 63720.1.1 3.104.2.7 .3.958117 .8 [id number] [facility] 2024-03-17 00:00:00 2024-03-18 08:09:54 Telephone ObJess Ramesh 1.2.840.1 52150.1.1 3.104.2.7 .3.588206 .8 [id number] [facility] 2024-03-18 00:00:00 2024-03-18 00:00:00 Patient Secure Msg Doctor Unassigned, [place] 1.2.840.1 97590.1.1 3.104.2.7 .3.287539 .8 [id number] [facility] 2024-03-16 02:22:00 2024-03-16 02:40:00 Emergency X RICKIEASTER STEPHENSON JESUS, [facility] [id number] [facility] 2024-03-16 02:22:00 2024-03-16 02:40:00 Emergency RickieAster stephenson G 1.2.840.1 76411.1.1 3.104.2.7 .3.492177 .8 [id number] [facility] 2024-03-16 00:00:00 2024-03-16 00:00:00 Travel 1.2.840.1 07408.1.1 3.104.2.7 .3.813255 .8 1.2.840.114 350.1.13.10 4.2.7.3.698 084.8 [id number] [facility] 2024-02-11 00:00:00 2024-03-15 18:16:55 Patient Secure Msg Eva Bryan 1.2.840.1 99550.1.1 3.104.2.7 .3.835998 .8 [id number] [facility] 2024-03-10 00:00:00 2024-03-10 23:21:57 Refill Jess Munson 1.2.840.1 78824.1.1 3.104.2.7 .3.298952 .8 [id number] [facility] 2024-03-07 00:00:00 2024-03-08 10:28:33 Telephone Obi-Franklin , Jess 1.2.840.1 24615.1.1 3.104.2.7 .3.382787 .8 [id number] [facility] 2024-03-06 14:15:00 2024-03-06 14:15:00 Outpatient EVA DODGE [facility] [id number] [facility] 2024-03-05 00:00:00 2024-03-06 09:29:39 Telephone Jess Munson 1.2.840.1 78013.1.1 3.104.2.7 .3.547653 .8 [id number] [facility] 2024-03-04 00:00:00 2024-03-05 15:00:39 Patient Secure Msg Jess Munson 1.2.840.1 44057.1.1 3.104.2.7 .3.778965 .8 [id number] [facility] 2024-03-04 00:00:00 2024-03-04 14:51:37 Telephone Jess Munson 1.2.840.1 98890.1.1 3.104.2.7 .3.997831 .8 [id number] [facility] 2024-02-28 00:00:00 2024-03-03 16:59:48 Telephone Jess Munson 1.2.840.1 80786.1.1 3.104.2.7 .3.900775 .8 [id number] [facility] 2024-02-28 00:00:00 2024-02-28 13:24:25 Telephone Jess Munson 1.2.840.1 12976.1.1 3.104.2.7 .3.257856 .8 [id number] [facility] 2024-02-27 00:00:00 2024-02-27 15:55:52 Telephone Jess Munson 1.2.840.1 80642.1.1 3.104.2.7 .3.951324 .8 [id number] [facility] 2024-02-27 10:40:00 2024-02-27 11:10:59 Outpatient R JESS MUNSON UZOMA [facility] [id number] [facility] 2024-02-27 10:40:00 2024-02-27 11:10:59 Office Visit Jess Munson 1.2.840.1 90828.1.1 3.104.2.7 .3.232666 .8 [id number] [facility] 2024-02-26 00:00:00 2024-02-26 00:00:00 Travel 1.2.840.1 60117.1.1 3.104.2.7 .3.200284 .8 1.2.840.114 350.1.13.10 4.2.7.3.698 084.8 [id number] [facility] 2024-02-22 00:00:00 2024-02-22 13:47:53 Telephone Jess Munson 1.2.840.1 61354.1.1 3.104.2.7 .3.659753 .8 [id number] [facility] 2024-02-21 23:55:00 2024-02-22 02:59:00 Emergency X SHORTY ZAMBRANO [facility] [id number] [facility] 2024-02-21 23:55:00 2024-02-22 02:59:00 Emergency Shorty Zambrano 1.2.840.1 66583.1.1 3.104.2.7 .3.248797 .8 [id number] [facility] 2024-02-21 00:00:00 2024-02-21 08:19:30 Telephone VitoFranklin Jess 1.2.840.1 22341.1.1 3.104.2.7 .3.765021 .8 [id number] [facility] 2024-02-21 00:00:00 2024-02-21 00:00:00 Travel 1.2.840.1 05540.1.1 3.104.2.7 .3.862539 .8 1.2.840.114 350.1.13.10 4.2.7.3.698 084.8 [id number] [facility] 2024-02-11 00:00:00 2024-02-13 09:13:13 Telephone Eva Bryan 1.2.840.1 57323.1.1 3.104.2.7 .3.121874 .8 [id number] [facility] 2024-02-11 00:00:00 2024-02-11 13:15:26 Patient Secure Msg Eva Bryan 1.2.840.1 74226.1.1 3.104.2.7 .3.513413 .8 [id number] [facility] 2024-02-11 00:00:00 2024-02-11 12:46:06 Refill VitoJess Cottrell 1.2.840.1 71377.1.1 3.104.2.7 .3.792614 .8 [id number] [facility] 2024-02-08 00:00:00 2024-02-08 14:40:57 Telephone Eva Bryan 1.2.840.1 50539.1.1 3.104.2.7 .3.407828 .8 [id number] [facility] 2024-02-07 00:00:00 2024-02-08 14:24:51 Patient Secure Msg Eva Bryan 1.2.840.1 02262.1.1 3.104.2.7 .3.999374 .8 [id number] [facility] 2024-01-30 00:00:00 2024-01-31 08:09:51 Telephone Eva Bryan 1.2.840.1 91442.1.1 3.104.2.7 .3.828750 .8 [id number] [facility] 2024-01-29 08:46:00 2024-01-29 14:10:00 Outpatient R EVA BRYAN [facility] [id number] [facility] 2024-01-29 08:46:00 2024-01-29 14:10:00 Hospital Encounter Eva Bryan 1.2.840.1 81019.1.1 3.104.2.7 .3.247105 .8 [id number] [facility] 2024-01-29 10:00:00 2024-01-29 12:35:00 Surgery Eva Bryan 1.2.840.1 27310.1.1 3.104.2.7 .3.376708 .8 [id number] [facility] 2024-01-29 10:30:00 2024-01-29 12:29:00 Anesthesia Event Radha Hurst Brian 1.2.840.1 51691.1.1 3.104.2.7 .3.586095 .8 [id number] [facility] 2024-01-25 00:00:00 2024-01-28 13:50:46 Refill Jess Munson 1.2.840.1 05986.1.1 3.104.2.7 .3.078083 .8 [id number] [facility] 2024-01-21 00:00:00 2024-01-21 00:00:00 Travel 1.2.840.1 69264.1.1 3.104.2.7 .3.227654 .8 1.2.840.114 350.1.13.10 4.2.7.3.698 084.8 [id number] [facility] 2024-01-12 03:54:00 2024-01-12 05:48:00 Emergency X CARO BAUER [facility] ERT [id number] [facility] 2024-01-12 03:54:00 2024-01-12 05:48:00 Emergency Caro Bauer S 1.2.840.1 01741.1.1 3.104.2.7 .3.349256 .8 [id number] [facility] 2024-01-12 00:00:00 2024-01-12 00:00:00 Travel 1.2.840.1 97768.1.1 3.104.2.7 .3.088120 .8 1.2.840.114 350.1.13.10 4.2.7.3.698 084.8 [id number] [facility] 2024-01-11 00:00:00 2024-01-11 12:50:05 Patient Secure Msg Rodrigoi-Jess Cottrell 1.2.840.1 34242.1.1 3.104.2.7 .3.693409 .8 [id number] [facility] 2024-01-10 00:00:00 2024-01-11 05:46:35 Patient Secure Msg Obi-Franklin Jess 1.2.840.1 03406.1.1 3.104.2.7 .3.056878 .8 [id number] [facility] 2024-01-07 11:15:00 2024-01-07 12:06:32 Outpatient R EVA BRYAN [facility] [id number] [facility] 2024-01-07 11:15:00 2024-01-07 12:06:32 Office Visit Eva Bryan 1.2.840.1 18489.1.1 3.104.2.7 .3.682009 .8 [id number] [facility] 2024-01-07 00:00:00 2024-01-07 00:00:00 Scanned Documents Doctor Unassigned, [place] 1.2.840.1 62669.1.1 3.104.2.7 .3.319033 .8 [id number] [facility] 2024-01-07 00:00:00 2024-01-07 00:00:00 Travel 1.2.840.1 21400.1.1 3.104.2.7 .3.703048 .8 1.2.840.114 350.1.13.10 4.2.7.3.698 084.8 [id number] [facility] 2023-11-30 00:00:00 2024-01-05 18:24:03 Patient Secure Msg Angelo MunsonFormerly [facility] BUILDING 1.2.840.114 350.1.13.10 4.2.7.2.686 [id number] 044 [id number] [facility] 2024-01-05 00:00:00 2024-01-05 00:00:00 Travel 1.2.840.1 77151.1.1 3.104.2.7 .3.927320 .8 1.2.840.114 350.1.13.10 4.2.7.3.698 084.8 [id number] [facility] 2024-01-03 11:00:00 2024-01-03 11:41:02 Outpatient R JESS MUNSON UZOMA [facility] [id number] [facility] 2024-01-03 11:00:2024-01-03 11:41:02 [facility] 1.2.840.114 350.1.13.10 4.2.7.2.686 [id number] 044 [id number] [facility] 2024-01-02 00:00:00 2024-01-02 08:01:22 Telephone Jeimy [facility] BUILDING 1.2.840.114 350.1.13.10 4.2.7.2.686 [id number] 044 [id number] [facility] 2023-12-25 00:00:00 2023-12-27 05:31:52 Refill Jeimy [facility] BUILDING 1.2.840.114 350.1.13.10 4.2.7.2.686 [id number] 044 [id number] [facility] 2023-12-25 00:00:00 2023-12-25 12:23:25 Refill Yann Nayak [facility] 1.2.840.114 350.1.13.10 4.2.7.2.686 [id number] 071 [id number] [facility] 2023-12-24 00:00:00 2023-12-24 16:00:22 Patient Secure Msg Yisel Hart [facility] ([facility] 1.2.840.114 350.1.13.10 4.2.7.2.686 [id number] 071 [id number] [facility] 2023-12-24 09:50:00 2023-12-24 11:47:00 Outpatient R YISEL HART [facility] [id number] [facility] 2023-12-24 09:50:00 2023-12-24 11:47:00 Hospital Encounter Yisel Hart [facility] 1.2.840.114 350.1.13.10 4.2.7.2.686 [id number] 020 [id number] [facility] 2023-12-24 10:45:00 2023-12-24 11:15:[address] [facility] 1..840.114 350.1.13.10 4.2.7.2.686 [id number] 020 [id number] [facility] 2023-12-18 14:30:00 2023-12-18 14:30:00 Outpatient R KONRAD ORDOÑEZ OGECHUKWU [facility] [id number] [facility] 2023-12-18 13:00:00 2023-12-18 13:00:00 Outpatient R OBI-FRANKLIN , JESS OBI-FRANKLIN , [facility] [id number] [facility] 2023-12-17 00:00:00 2023-12-18 11:14:39 Telephone Obi-Franklin [facility] 1..840.114 350.1.13.10 4.2.7.2.686 [id number] 044 [id number] [facility] 2023-12-12 08:40:00 2023-12-12 08:40:00 Outpatient R OBI-FRANKLIN , JESS OBI-FRANKLIN , [facility] [id number] [facility] 2023-12-07 00:00:00 2023-12-10 08:32:14 Refill Konrad Ordoñez [facility] BUILDING 1..840.114 350.1.13.10 4.2.7.2.686 [id number] 044 [id number] [facility] 2023-11-30 00:00:00 2023-12-04 09:32:31 Patient Secure Msg Tianna Mei [facility] 1.2.840.114 350.1.13.10 4.2.7.2.686 [id number] 071 [id number] [facility] 2023-11-30 15:45:00 2023-11-30 15:45:00 Outpatient R ISAAC SHAY [facility] [id number] [facility] 2023-11-27 14:00:00 2023-11-27 14:37:01 Outpatient R VANESSA LEYVA VIVIAN [facility] [id number] [facility] 2023-11-27 14:00:00 2023-11-27 14:37:01 Office Visit Vanessa Leyva [facility] 1.2.840.114 350.1.13.10 4.2.7.2.686 [id number] 134 [id number] [facility] 2023-11-26 15:00:00 2023-11-26 15:30:00 Office Visit Jose De Jesus Medina [facility] 1.2.840.114 350.1.13.10 4.2.7.2.686 [id number] [facility] 2023-11-26 15:00:00 2023-11-26 15:00:00 Outpatient R JOSE DE JESUS MEDINA VIEN [facility] [id number] [facility] 2023-11-22 13:00:00 2023-11-22 13:30:00 Office Visit Tianna Mei [facility] 1.2.840.114 350.1.13.10 4.2.7.2.686 [id number] 071 [id number] [facility] 2023-11-22 13:00:00 2023-11-22 13:00:00 Outpatient R TIANNA MEI ASHLEY [facility] [id number] [facility] 2023-11-20 10:00:00 2023-11-20 10:00:00 Outpatient R [facility] [id number] [facility] 2023-11-19 10:30:00 2023-11-19 10:30:00 Family Service Aide Visit 2, Adc Lab Jess Munson 2, Adc Lab [facility] 1.2.840.114 350.1.13.10 4.2.7.2.686 [id number] 353 [id number] [facility] 2023-11-19 09:40:00 2023-11-19 10:03:53 Outpatient R JESS MUNSON UZOMA [facility] [id number] [facility] 2023-11-19 09:40:00 2023-11-19 10:03:53 [facility] 1.2.840.114 350.1.13.10 4.2.7.2.686 [id number] 044 [id number] [facility] 2023-11-15 00:00:00 2023-11-18 18:57:29 Refill [facility] 1.2.840.114 350.1.13.10 4.2.7.2.686 [id number] 044 [id number] [facility] 2023-11-16 00:00:00 2023-11-18 18:53:00 Refill Jeimy [facility] BUILDING 1.2.840.114 350.1.13.10 4.2.7.2.686 [id number] 044 [id number] [facility] 2023-11-18 05:34:00 2023-11-18 13:08:00 Emergency X GENOVEVA, KELLY SIMMS, KELLY [facility] [id number] [facility] 2023-11-18 05:34:00 2023-11-18 13:08:00 Emergency Caro Bauer Robert Lee [facility] 1.2.840.114 350.1.13.10 4.2.7.2.686 [id number] 084 [id number] [facility] 2023-11-08 10:16:00 2023-11-08 16:16:00 Emergency X TIFF ISABEL [facility][NOTE 3] [id number] [facility] 2023-11-08 10:16:00 2023-11-08 16:16:[address] [facility] 1.2.840.114 350.1.13.10 4.2.7.2.686 [id number] 084 [id number] [facility] 2023-10-16 00:00:00 2023-10-19 05:44:04 [facility] 1.2.840.114 350.1.13.10 4.2.7.2.686 [id number] 044 [id number] [facility] 2023-10-15 00:00:00 2023-10-16 10:48:03 Refill Obi-Franklin AngeloFormerly [facility]AL BUILDING 1.2.840.114 350.1.13.10 4.2.7.2.686 [id number] 044 [id number] [facility] 2023 09:40:00 2023 09:40:00 Outpatient R OBI-FRANKLIN JESS OBI-FRANKLIN [facility] [id number] [facility] 2023-10-01 00:00:00 2023-10-03 15:28:49 Refill Obsuzanne-Angelo CottrellFormerly [facility] PROFESSIO NAL BUILDING 1.2.840.114 350.1.13.10 4.2.7.2.686 [id number] 044 [id number] [facility] 2023-09-12 00:00:00 2023-09-13 13:09:32 Refill [facility] 1..840.114 350.1.13.10 4.2.7.2.686 [id number] 044 [id number] [facility] 2023-09-05 10:40:00 2023-09-05 10:40:00 Outpatient R OBI-FRANKLIN , JESS OBI-FRANKLIN , [facility] [id number] [facility] 2023-08-13 14:40:00 2023-08-13 14:40:00 Outpatient R OBI-FRANKLIN , JESS OBI-FRANKLIN , [facility] [id number] [facility] 2023-08-06 14:30:00 2023-08-06 15:25:53 Family Service Aide Visit 2, Adc Lab Obi-Franklin , [facility] 1..840.114 350.1.13.10 4.2.7.2.686 [id number] [facility] 2023-08-06 14:30:00 2023-08-06 14:30:00 Outpatient R OBI-FRANKLIN , JSES OBI-FRANKLIN , [facility] [id number] [facility] 2023-08-06 13:40:00 2023-08-06 14:29:31 Office Visit Obi-Franklin [facility] BUILDING 1.2.840.114 350.1.13.10 4.2.7.2.686 [id number] 044 [id number] [facility] 2023-08-06 08:40:00 2023-08-06 08:40:00 Outpatient R OBI-FRANKLINJESS Arceo OBI-FRANKLIN , [facility] [id number] [facility] 2023-07-31 00:00:00 2023-08-01 12:29:54 Telephone Konrad Ordoñez [facility] 1.2.840.114 350.1.13.10 4.2.7.2.686 [id number] 044 [id number] [facility] 2023-07-31 00:00:00 2023-07-31 18:10:27 Refill Obi-Franklin JessFormerly [facility] PROFESSIO NAL BUILDING 1.2.840.114 350.1.13.10 4.2.7.2.686 [id number] 044 [id number] [facility] 2023-07-30 00:00:00 2023-07-31 09:10:12 Patient Secure Msg Obi-Franklin [facility] PROFESSIO NAL BUILDING 1.2.840.114 350.1.13.10 4.2.7.2.686 [id number] 044 [id number] [facility] 2023-07-25 00:00:00 2023-07-25 09:15:22 [facility]ill [facility] 1.2.840.114 350.1.13.10 4.2.7.2.686 [id number] 044 [id number] [facility] 2023-05-29 00:00:00 2023-06-30 18:07:42 Patient Secure Msg Obi-Franklin [facility] PROFESSIO NAL BUILDING 1.2.840.114 350.1.13.10 4.2.7.2.686 [id number] 044 [id number] [facility] 2023-06-21 11:31:00 2023-06-21 12:29:00 Emergency X BONITA TRIVEDI [facility] ERT [id number] [facility] 2023-06-21 11:31:00 2023-06-21 12:29:00 Emergency Bonita Trivedi [facility] 1.2.840.114 350.1.13.10 4.2.7.2.686 [id number] 084 [id number] [facility] 2023-06-18 08:40:00 2023-06-18 08:40:00 Outpatient R OBI-FRANKLIN , JESS OBI-FRANKLIN , [facility] [id number] [facility] 2023-06-12 00:00:00 2023-06-12 00:00:00 Patient Secure Msg Obi-Franklin , [facility] PROFESSIO NAL BUILDING 1.2.840.114 350.1.13.10 4.2.7.2.686 [id number] 044 [id number] [facility] 2023-06-06 13:00:00 2023-06-06 13:00:00 Outpatient R OBI-FRANKLIN , JESS OBI-FRANKLIN , [facility] [id number] [facility] 2023-05-29 00:00:00 2023-05-29 00:00:00 Refill Obi-Franklin , [facility] 1.2.840.114 350.1.13.10 4.2.7.2.686 [id number] 044 [id number] [facility] 2023-04-25 15:00:00 2023-04-25 15:00:00 Outpatient R OBI-FRANKLIN , JESS OBI-FRANKLIN , [facility] [id number] [facility] 2023-04-23 00:00:00 2023-04-23 00:00:00 Refill Obi-Franklin , [facility] BU[facility] 1.2.840.114 350.1.13.10 4.2.7.2.686 [id number] 044 [id number] [facility] 2023-04-11 00:00:00 2023-04-11 00:00:00 Refill Jeimy [facility] BUILDING 1.2.840.114 350.1.13.10 4.2.7.2.686 [id number] 044 [id number] [facility] 2023-04-05 00:00:00 2023-04-05 00:00:00 Telephone Jeimy [facility] BUILDING 1.2.840.114 350.1.13.10 4.2.7.2.686 [id number] 044 [id number] [facility] 2023-04-03 00:00:00 2023-04-03 00:00:00 Telephone Carlos Ibrahim [facility] BUILDING 1.2.840.114 350.1.13.10 4.2.7.2.686 [id number] 044 [id number] [facility] 2023-04-03 00:00:00 2023-04-03 00:00:00 Patient Secure Msg Jeimy [facility] BUILDING 1.2.840.114 350.1.13.10 4.2.7.2.686 [id number] 044 [id number] [facility] 2023-04-01 00:00:00 2023-04-01 00:00:00 Refill Jeimy [facility] BUILDING 1.2.840.114 350.1.13.10 4.2.7.2.686 [id number] 044 [id number] [facility] 2023-03-02 00:00:00 2023-03-02 00:00:00 Refill Obi-Angelo CottrellFormerly [facility] PROFESSIO NAL BUILDING 1.2.840.114 350.1.13.10 4.2.7.2.686 [id number] 044 [id number] [facility] 2023-02-19 00:00:00 2023-02-19 00:00:00 Refill Obi-Franklin , [facility] 1.2.840.114 350.1.13.10 4.2.7.2.686 [id number] 044 [id number] [facility] 2023-01-26 00:00:00 2023-01-26 00:00:00 Patient Secure Msg Doctor Unassigned, [place] [facility] 1.2.840.114 350.1.13.10 4.2.7.2.686 [id number] 044 [id number] [facility] 2023-01-24 15:00:00 2023-01-24 15:25:03 Outpatient R OBI-FRANKLIN JESS OBI-FRANKLIN [facility] [id number] [facility] 2023-01-24 15:00:00 2023-01-24 15:25:03 Office Visit Obsuzanne-Franklin [facility] 1.2.840.114 350.1.13.10 4.2.7.2.686 [id number] 044 [id number] [facility] 2023-01-16 00:00:00 2023-01-16 00:00:00 Refill Obi-Franklin [facility] BUILDING 1.2.840.114 350.1.13.10 4.2.7.2.686 [id number] 044 [id number] [facility] 2023-01-15 00:00:00 2023-01-15 00:00:00 Orders Only Doctor Unassigned, [place] [facility] 1.2.840.114 350.1.13.10 4.2.7.2.686 [id number] [id number] [facility] 2023-01-15 00:00:00 2023-01-15 00:00:00 Patient Secure Msg Doctor Unassigned, [place] [facility] 1.2.840.114 350.1.13.10 4.2.7.2.686 [id number] 044 [id number] [facility] 2023-01-08 00:00:00 2023-01-08 00:00:00 [facility]phone [facility] 1.2.840.114 350.1.13.10 4.2.7.2.686 [id number] 044 [id number] [facility] 2023-01-06 00:00:00 2023-01-06 00:00:00 Orders Only Doctor Unassigned, [place] [facility] 1.2.840.114 350.1.13.10 4.2.7.2.686 [id number] [id number] [facility] 2023-01-05 00:00:00 2023-01-05 00:00:00 Telephone CORP80Franklin [facility] BUILDING 1.2.840.114 350.1.13.10 4.2.7.2.686 [id number] 044 [id number] [facility] 2023-01-03 00:00:00 2023-01-03 00:00:00 [facility]phone [facility] BUILDING 1.2.840.114 350.1.13.10 4.2.7.2.686 [id number] 044 [id number] [facility] 2023-01-01 00:00:00 2023-01-01 00:00:00 Patient Secure Msg Doctor Unassigned, [place] [facility] BUILDING 1.2.840.114 350.1.13.10 4.2.7.2.686 [id number] 044 [id number] [facility] 2022-12-28 00:00:00 2022-12-28 00:00:00 Patient Secure Msg Jeimy [facility] BUILDING 1.2.840.114 350.1.13.10 4.2.7.2.686 [id number] 044 [id number] [facility] 2022-12-26 00:00:00 2022-12-26 00:00:00 [facility] 1.2.840.114 350.1.13.10 4.2.7.2.686 [id number] 044 [id number] [facility] 2022-12-25 14:45:00 2022-12-25 15:00:00 Family Service Aide Visit 2, Adc Lab Jess Munson [facility] 1.2.840.114 350.1.13.10 4.2.7.2.686 [id number] [facility] 2022-12-25 14:00:00 2022-12-25 14:14:40 Outpatient R JESS MUNSON [facility] [id number] [facility] 2022-12-25 14:00:00 2022-12-25 14:14:40 [facility] 1.2.840.114 350.1.13.10 4.2.7.2.686 [id number] 044 [id number] [facility] 2022-12-19 10:00:00 2022-12-19 10:00:00 Outpatient R OBI-FRANKLIN , JESS OBI-FRANKLIN , JESS [facility] [id number] [facility] 2022-07-19 15:30:00 2022-07-19 15:30:00 Outpatient R KAMILA MILAN [facility] [id number] [facility] 2022-04-14 10:00:00 2022-04-14 10:00:00 Outpatient R [facility] [id number] [facility] 2022-01-20 13:00:00 2022-01-20 14:43:14 Outpatient JACINTA DAVIES [facility] [id number] [facility] 2022-01-20 13:00:00 2022-01-20 14:43:14 Office Visit Provider, Meche Harvey Brenda A [facility] SLIVER [employer] T[employer] [facility] 1.840.114 350.1.13.10 4.2.7.2.686 [id number] 107 [id number] [facility] 2022-01-16 10:45:00 2022-01-16 10:45:00 Outpatient MECHE SEGURA [facility] [id number] [facility] 2022-01-05 00:00:00 2022-01-05 00:00:00 Encounter 1.2.840.1 64001.1.1 3.104.2.7 .2.923136 1.2.840.114 350.1.13.10 4.2.7.2.696 [id number] [facility] 2022-01-03 00:00:00 2022-01-03 00:00:00 Orders Only Doctor Unassigned, [place] [facility] 1.2840.114 350.1.13.10 4.2.7.2.686 [id number] [id number] [facility] 2021-12-29 00:00:00 2021-12-29 00:00:00 Patient Secure Msg Rodrick Pete [facility] SLIVER [employer] T[employer] [facility] 1..114 350.1.13.10 4.2.7.2.686 [id number] 107 [id number] [facility] 2021-12-22 07:45:00 2021-12-22 08:42:11 Outpatient R JACINTA VOSS [facility] [id number] [facility] 2021-12-22 07:45:00 2021-12-22 08:42:11 Routine Visit Provider, Dylan-AlexchJacinta Mathews [facility] SLIVER [employer] [facility] 1..114 350.1.13.10 4.2.7.2.686 [id number] 107 [id number] [facility] 2021-12-03 00:00:00 2021-12-03 00:00:00 Patient Secure Msg Doctor Unassigned, [place] [facility] 1..114 350.1.13.10 4.2.7.2.686 [id number] 019 [id number] [facility] 2021-11-30 00:00:00 2021-11-30 00:00:00 Patient Secure Msg PeteRodrick [facility] SLIVER [employer] [facility] 1..114 350.1.13.10 4.2.7.2.686 [id number] 107 [id number] [facility] 2021-11-26 03:26:00 2021-11-29 10:05:00 Inpatient P VANESSA LEYVA [facility] CLEVE [id number] [facility] 2021-11-26 03:26:00 2021-11-29 10:05:00 Hospital Encounter Vanessa Leyva [facility] 1..114 350.1.13.10 4.2.7.2.686 [id number] 083 [id number] [facility] 2021-11-26 15:34:00 2021-11-27 08:48:00 Anesthesia Event Wilver Owens [facility] 1.2.840.114 350.1.13.10 4.2.7.2.686 [id number] 083 [id number] [facility] 2021-11-26 10:17:37 2021-11-26 10:17:37 Anesthesia Event Wilver Owens [facility] 1.2.840.114 350.1.13.10 4.2.7.2.686 [id number] [id number] [facility] 2021-11-23 09:45:00 2021-11-23 10:25:58 Outpatient LOVE SATNA EMILY [facility] [id number] [facility] 2021-11-23 09:45:00 2021-11-23 10:25:58 Routine Visit Provider, Dylan-Rmp Rodrick Norton Emily [facility] SLIVER [employer] T[employer] [facility] 1.2.840.114 350.1.13.10 4.2.7.2.686 [id number] 107 [id number] [facility] 2021-11-11 09:45:00 2021-11-11 10:12:23 Routine Visit Rodrcik Pete [facility] SLIVER [employer] [facility] 1.2.840.114 350.1.13.10 4.2.7.2.686 [id number] 107 [id number] [facility] 2021-11-11 09:45:00 2021-11-11 10:12:23 Outpatient RODRICK DENNIS [facility] [id number] [facility] 2021-11-11 00:00:00 2021-11-11 00:00:00 Patient Secure Msg Rodrick Pete [facility] SLIVER [employer] [facility] 1.2.840.114 350.1.13.10 4.2.7.2.686 [id number] [facility] 2021-11-09 00:00:00 2021-11-09 00:00:00 Telephone Kiki Petecuauhtemoc Mosquera [facility] [employer] [facility] & CHILD [facility] 1.2.840.114 350.1.13.10 4.2.7.2.686 [id number] [facility] 2021-11-07 00:00:00 2021-11-07 00:00:00 Refill Lolly Peteelsa [facility] [employer] [facility] CHILD [facility] 1.2.840.114 350.1.13.10 4.2.7.2.686 [id number] [facility] 2021-10-27 17:35:00 2021-10-27 19:05:00 Outpatient X BRENDA VELÁSQUEZ [facility] [id number] [facility] 2021-10-27 17:35:00 2021-10-27 19:05:00 Emergency Brenda Velásquez Fernando Ramos [facility] 1.2.840.114 350.1.13.10 4.2.7.2.686 [id number] [facility] 2021-10-27 12:45:00 2021-10-27 13:34:39 Outpatient R KIKI PETECUAUHTEMOC [facility] [id number] [facility] 2021-10-27 12:45:00 2021-10-27 13:34:39 Routine Visit PeteRodrick [facility] [employer] [facility] & CHILD [facility] 1.2.840.114 350.1.13.10 4.2.7.2.686 [id number] [facility] 2021-10-27 12:45:00 2021-10-27 12:45:00 Outpatient R RODRICK PETE [facility] [id number] [facility] 2021-10-27 00:00:00 2021-10-27 00:00:00 Orders Only Doctor Unassigned, [place] [facility] 1.2840.114 350.1.13.10 4.2.7.2.686 [id number] [facility] 2021-10-26 00:00:00 2021-10-26 00:00:00 Abstract Rodrick Pete [facility] [employer] [facility]NAL [facility] CHILD [facility] 1.0.114 350.1.13.10 4.2.7.2.686 [id number] [facility] 2021-10-21 09:45:00 2021-10-21 10:30:00 Family Service Aide Visit Ultrasound, Vinh Stone [facility] [employer] [facility] & CHILD [facility] 1..114 350.1.13.10 4.2.7.2.686 [id number] [facility] 2021-10-21 09:45:00 2021-10-21 09:45:00 [facility] [id number] [facility] 2021-10-18 00:00:00 2021-10-18 00:00:00 Patient Secure Msg Doctor Unassigned, [place] [facility] [employer] [facility] & CHILD [facility] 1.0.114 350.1.13.10 4.2.7.2.686 [id number] [facility] 2021-10-18 00:00:00 2021-10-18 00:00:00 Telephone Rodrick Pete [facility] [employer] [facility] & CHILD [facility] 1.840.114 350.1.13.10 4.2.7.2.686 [id number] [facility] 2021-10-14 08:00:00 2021-10-14 08:34:31 Outpatient R RODRICK PETE [facility] [id number] [facility] 2021-10-14 08:00:00 2021-10-14 08:34:31 Routine Visit Rodrick Pete [facility] [employer] [facility] & CHILD [facility] 1.840.114 350.1.13.10 4.2.7.2.686 [id number] [facility] 2021-09-29 10:45:00 2021-09-29 11:39:29 Outpatient R RODRICK PETE [facility] [id number] [facility] 2021-09-29 10:45:00 2021-09-29 11:39:29 [facility] [employer] [facility] & CHILD [facility] 1.840.114 350.1.13.10 4.2.7.2.686 [id number] [facility] 2021-09-29 10:45:00 2021-09-29 10:45:00 Outpatient RODRICK DENNIS [facility] [id number] [facility] 2021-09-16 00:00:00 2021-09-16 00:00:00 Patient Secure Msg Doctor Unassigned, [place] [facility] 1..114 350.1.13.10 4.2.7.2.686 [id number] [facility] 2021-09-16 00:00:00 2021-09-16 00:00:00 [facility] [employer] [facility] CHILD [facility] 1.840.114 350.1.13.10 4.2.7.2.686 [id number] 107 [id number] [facility] 2021-09-16 00:00:00 2021-09-16 00:00:[address] [facility] [employer] [facility] & CHILD [facility] 1.2.840.114 350.1.13.10 4.2.7.2.686 [id number] [facility] 2021-09-15 10:45:00 2021-09-15 11:53:13 Outpatient R RODRICK PETE [facility] [id number] [facility] 2021-09-15 10:45:00 2021-09-15 11:53:13 Routine Visit Rodrick Pete [facility] [employer] [facility] CHILD [facility] 1..840.114 350.1.13.10 4.2.7.2.686 [id number] [facility] 2021-09-13 00:00:00 2021-09-13 00:00:00 Refill PeteRodrick [facility] [employer] [facility] CHILD [facility] 1..840.114 350.1.13.10 4.2.7.2.686 [id number] [facility] 2021-08-23 08:45:00 2021-08-23 22:46:00 Outpatient X BRENDA VELÁSQUEZ [facility] [id number] [facility] 2021-08-23 08:45:00 2021-08-23 22:46:00 Emergency Martinez, IvannaBrenda Montalvo [facility] 1..840.114 350.1.13.10 4.2.7.2.686 [id number] [facility] 2021-08-18 10:30:00 2021-08-18 10:44:10 Outpatient R RODRICK PETE [facility] [id number] [facility] 2021-08-18 10:30:00 2021-08-18 10:44:10 Routine Visit Rodrick Pete [facility] [employer] [facility] 1.2.840.114 350.1.13.10 4.2.7.2.686 [id number] [facility] 2021-08-11 00:00:00 2021-08-11 00:00:00 Patient Secure Msg Rodrick Pete [facility] [employer] [facility] 1.2.840.114 350.1.13.10 4.2.7.2.686 [id number] [facility] 2021-08-11 00:00:00 2021-08-11 00:00:[address] [facility] [employer] [facility] CHILD [facility] 1.2.840.114 350.1.13.10 4.2.7.2.686 [id number] [facility] 2021-08-11 00:00:00 2021-08-11 00:00:[address] [facility] [employer] [facility] 1.2.840.114 350.1.13.10 4.2.7.2.686 [id number] [facility] 2021-08-11 00:00:00 2021-08-11 00:00:[address] [facility] [employer] [facility] 1.2.840.114 350.1.13.10 4.2.7.2.686 [id number] [facility] 2021-08-02 00:00:00 2021-08-02 00:00:[address] [facility] [employer] [facility] 1.2.840.114 350.1.13.10 4.2.7.2.686 [id number] [facility] 2021-08-01 00:00:00 2021-08-01 00:00:00 Patient Secure Msg Doctor Unassigned, [place] [facility] [employer] [facility] 1.840.114 350.1.13.10 4.2.7.2.686 [id number] [facility] 2021-07-29 09:30:00 2021-07-29 10:45:00 Family Service Aide Visit Ultrasound, GiovannaMfm Rodrick Pete Antonio F [facility] [employer] [facility] CHILD [facility] 1.840.114 350.1.13.10 4.2.7.2.686 [id number] [facility] 2021-07-29 09:30:00 2021-07-29 09:30:00 Outpatient P [facility] [id number] [facility] 2021-07-29 09:30:00 2021-07-29 09:30:00 Outpatient MADDIE LANDRY [facility] [id number] [facility] 2021-07-29 08:00:00 2021-07-29 08:36:27 Family Service Aide Visit Lab, Ang-Rmchp Rodrick Pete [facility] 1.840.114 350.1.13.10 4.2.7.2.686 [id number] [facility] 2021-07-23 00:00:00 2021-07-23 00:00:00 Patient Secure Msg Doctor Unassigned, [place] [facility] .84.114 350.1.13.10 4.2.7.2.686 [id number] [facility] 2021-07-21 09:00:00 2021-07-21 10:12:55 Outpatient RODRICK DENNIS [facility] [id number] [facility] 2021-07-21 09:00:00 2021-07-21 10:12:55 Routine Visit Rodrick Pete [facility] [employer] [facility] 1.2.840.114 350.1.13.10 4.2.7.2.686 [id number] [facility] 2021-07-21 09:00:00 2021-07-21 10:12:55 Outpatient R PETERODRICK [facility] [id number] [facility] 2021-07-21 09:00:00 2021-07-21 09:00:00 Outpatient Demetri PETE, KIKIELSA [facility] [id number] [facility] 2021-07-21 09:00:00 2021-07-21 09:00:00 Outpatient Demetri PETE, KIKIELSA [facility] [id number] [facility] 2021-07-17 02:36:00 2021-07-17 06:54:00 Emergency X LIZETTE CARO [facility] ERT [id number] [facility] 2021-07-17 02:36:00 2021-07-17 06:54:00 Emergency Caro Bauer S [facility] 1.2840.114 350.1.13.10 4.2.7.2.686 [id number] [facility] 2021-07-12 00:00:00 2021-07-12 00:00:[address] [facility] [employer] [facility] 1.20.114 350.1.13.10 4.2.7.2.686 [id number] [facility] 2021-07-06 00:00:00 2021-07-06 00:00:[address] [facility] [employer] [facility] 1.2840.114 350.1.13.10 4.2.7.2.686 [id number] [facility] 2021-06-28 01:26:00 2021-06-29 10:10:00 Outpatient X BRENDA VELÁSQUEZ [facility] [id number] [facility] 2021-06-28 01:26:00 2021-06-29 10:10:00 Emergency Alayna Bear S Brenda Velásquez [facility] 1.2.840.114 350.1.13.10 4.2.7.2.686 [id number] [facility] 2021-06-27 20:49:00 2021-06-27 20:59:[address] [facility] ERT [id number] [facility] 2021-06-27 20:49:00 2021-06-27 20:59:00 Emergency [facility] 1.2.840.114 350.1.13.10 4.2.7.2.686 [id number] [facility] 2021-06-24 00:00:00 2021-06-24 00:00:00 Patient Secure Msg Rodrick Pete [facility] [employer] [facility] 1.2.840.114 350.1.13.10 4.2.7.2.686 [id number] [facility] 2021-06-24 00:00:00 2021-06-24 00:00:[address] [facility] [employer] [facility]ILD [facility] 1.2.840.114 350.1.13.10 4.2.7.2.686 [id number] [facility] 2021-06-23 14:00:00 2021-06-23 15:33:45 Outpatient R RODRICK PETE [facility] [id number] [facility] 2021-06-23 14:00:00 2021-06-23 15:33:45 Initial Visit Kiki Petedamarielsa Demetri [facility] [employer] [facility] 1.2.840.114 350.1.13.10 4.2.7.2.686 [id number] [facility] 2021-06-23 14:00:00 2021-06-23 15:33:45 Outpatient R KIKI PETECUAUHTEMOC [facility] [id number] [facility] 2021-06-23 14:00:00 2021-06-23 15:33:45 Outpatient R KIKI PETEDAMARILIMAGloria [facility] [id number] [facility] 2021-06-23 00:00:00 2021-06-23 00:00:00 Orders Only Doctor Unassigned, [place] [facility] 1.2840.114 350.1.13.10 4.2.7.2.686 [id number] [facility] 2021-06-22 08:04:00 2021-06-22 13:00:00 Emergency X ANGUS DWYER [facility] ERT [id number] [facility] 2021-06-22 08:04:00 2021-06-22 13:00:00 Emergency DwyerAngus [facility] 1.2840.114 350.1.13.10 4.2.7.2.686 [id number] [facility] 2021-06-21 22:18:00 2021-06-21 23:26:00 Emergency Caro Bauer [facility] 1.2.840.114 350.1.13.10 4.2.7.2.686 [id number] [facility] 2021-06-21 22:18:00 2021-06-21 23:26:[address] CARO BAUER [facility] ERT [id number] [facility] 2021-06-21 22:18:00 2021-06-21 23:26:[address] Emergency X CARO BAUER [facility] ERT [id number] [facility] 2021-06-11 12:44:00 2021-06-14 18:06:00 Inpatient X JOSE DE JESUS MEDINA [facility] [id number] [facility] 2021-06-11 12:44:00 2021-06-14 18:06:00 Hospital Encounter Abdullahi Gomez, Foreign Leyva, Vanessa Medina Jose De Jesus [facility] 1.2.840.114 350.1.13.10 4.2.7.2.686 [id number] [facility] 2021-05-30 23:49:00 2021-06-03 14:41:00 Hospital Encounter Abdullahi Gomez, Edith [facility] 1..840.114 350.1.13.10 4.2.7.2.686 [id number] [facility] 2021-05-30 23:49:00 2021-06-03 14:41:00 Inpatient X EDITH TERRY SHANNON [facility] [id number] [facility] Results Test Description Test Time Test Comments Results Result Comments Source Dental Block 08:31:23 Aster Lee NP ? ? 03/16/2024 ?2:33 AMDental Block Date/Time: 03/16/2024 2:31 AM Performed by: Aster Lee NPAuthorized by: Aster Lee NP ?Consent: ?Consent obtained: ?Verbal ?Consent given by: ?Patient ?Risks, benefits, and alternatives were discussed: yes ? ?Risks discussed: ?Allergic reaction, infection and hematomaUniversal protocol: ?Procedure explained and questions answered to patient or proxy's satisfaction: yes ? ?Patient identity confirmed: ?Verbally with patientIndications: ?Indications: dental pain ?Location: ?Block type: ?Inferior alveolarProcedure details: ?Syringe type: ?Luer lock syringe ?Needle gauge: ?27 G ?Anesthetic injected: ?Lidocaine 1% WITH epi ?Injection procedure: ?Anatomic landmarks identified, anatomic landmarks palpated, introduced needle, negative aspiration for blood and incremental injectionPost-procedure details: ?Outcome: ?Pain relieved ?Procedure completion: ?Tolerated [facility] CT Abdomen pelvis w contrast 08:24:04 Ordering [...] and pelvisdemonstrate no osseous destructive lesion. [facility] ([id number])2024-02-22 06:46:27* Test Item Value Reference Range Interpretation Comme nts NA (test code = 9661100851) 138 mmol/L 135-145 K (test code = 4221168732) 3.9 mmol/L 3.5-5.0 CL (test code = 3575681225) 104 mmol/L 98-108 CO2 TOTAL (test code = 7638908525) 22 mmol/L 23-31 L AGAP (test code = 0469097210) 12 2-16 BUN (test code = 0104152153) 11 mg/dL 7-23 GLUCOSE (test code = 8686928076) 113 mg/dL 70-110 H CREATININE (test code = 2160-0) 0.50 mg/dL 0.50-1.04 TOTAL BILI (test code = 4349315433) 0.9 mg/dL 0.1-1.1 CALCIUM (test code = 9703824615) 9.5 mg/dL 8.6-10.6 T PROTEIN (test code = 2862380047) 8.5 g/dL 6.3-8.2 H ALBUMIN (test code = 4960663749) 4.8 g/dL 3.5-5.0 ALK PHOS (test code = 2256120633) 81 U/L 34-122 ALTv (test code = 1742-6) 15 U/L 5-35 AST(SGOT) (test code = 8913785952) 21 U/L 13-40 eGFR (test code = 20555-2) 132.0 mL/min/1.73m2 CKD-EPI eGFR (2020). Assuming creatinine has been stable day-to-day for at least three months, the eGFR indicates Category G1 (>= 90 mL/min/1.73 m2) Lab Interpretation (test code = 22414-4) [facility]normal [facility] 06:45:47* Test Item Value Reference Range Interpretation Comme nts LIPASE (test code = 8055318247) 24 U/L 0-220 Lab Interpretation (test cod e = 51825-7) Normal [facility] WITH HCSB3554-20-36 06:27:08* Test Item Value Reference Range Interpretation [...] 33.9 g/dL 31.6-35.1 RDW-SD (test code = 28632-0) 48.3 fL 39.0-49.9 RDW-CV (test code = 788-0) 12.9 % 12.0-15.5 PLT (test code = 777-3) 402 166-358 H MPV (test code = 98045-3) 9.3 fL 9.5-12.9 L NRBC/100 WBC (test code = 3638872509) 0.0 0.0-10.0 NRBC x10^3 (test code = 7263008885) See_Comment [Automated message] The system which generated this result transmitted reference range: 10*3/?L. The reference range was not used to interpret this result as normal/abnormal. GRAN MAT (NEUT) % (test code = 770-8) 89.3 % IMM GRAN % (test code = 4759629283) 0.40 % LYMPH % (test code = 736-9) 7.4 % MONO % (test code = 5905-5) 2.7 % EOS % (test code = 713-8) 0.1 % BASO % (test code = 706-2) 0.1 % GRAN MAT x10^3(ANC) (test code = 1355082872) 12.26 10*3/uL 1.88-7.09 H IMM GRAN x10^3 (test code = 8837379302) 0.06 10*3/uL 0.00-0.06 LYMPH x10^3 (test code = 731-0) 1.02 10*3/uL 1.32-3.29 L MONO x10^3 (test code = 742-7) 0.37 10*3/uL 0.33-0.92 EOS x10^3 (test code = 711-2) 0.03-0.39 L BASO x10^3 (test code = 704-7) 0.01-0.07 Lab Interpretation (test code = 23541-5) [facility]normal [facility] Fvpe9670-39-10 17:53:54* Test Item Value Reference Range Interpretation Comme nts Case Report (test code = 5470915019) Surgical Pathology ?Case: [id number] ? Authorizing Provider: ?Eva Bryan MD ? ? ? Collected: ? 01/29/2024 1200 ?Ordering Location: ? ? [facility] ? ? ?Received: ?01/29/2024 1228 ? [facility] Center ?Pathologist: ? Eunice, Brendon, MD PhD ?Specimen: ? ?GALLBLADDER ? Final Diagnosis (test code = 4637583418) v4eisHOgLFQik7muPRAwbO FuZzEwMzNcZnRuYmpcdWMx YSwzbsZvFCfinEysEDL9GW AjFI0vhJfulWc6uUxwKXCj weP6dUIcCMgds0txCMK2c1 qvnlkfCDZkIJdfGn6vjVFc qOxnQpLwWLDcHJi3dW70LI QduZ7rpCOrKIc5QOXjvSZf kvYyGpFyFFLklMVxsWC9ZV YmAT4hpnozGXgmAFbkRFHh suQ3RAZkxMScA8YwCDOmDU 1dkuosJYD0NVrkJNVlNIQ4 JkXpPYPyu6Irjys2TdSbvB FyZFxwbGFpblxmczIwXHBh ciBBLiBHQUxMQkxBRERFUi cfQ4tPTSJZFWDEFPSFE19F OiBccGFyICAgICAtIENIUk 6SCKEdG7uWGSHPCMYPSZUH JcDJFXNYVJSDL0sNL1RWLf 1ZJ8ITR1sdSCFiSIWsRJ8b T0rVWOLZVUSOQHDRIWIxfU FyXHBhcmRccGFyfXtccnRm PEtag2UkI4QkChUmOVztax NpXGRlZmxhbmcxMDMzXGZ0 bmJqXHVjMVxkZWZmMHtcZm 5sfZTeqPqdJmVcNEJzb4qa cwKLSYdoPpJpB093NNCfRC aml7yeu1XsIFDvqADsj5R7 XGKMapnwmQe5g4oaVzYaKh F1yCJoBZciM2zyttWcsFIv Q3LbaZQyjDd5jSdqV87xn4 Q2ZaqsA8jrJTWhKDZfE1Jm GB8wYUCqKpm5RYH7UDI1VZ KuZBKyI7VpNJ0hGXEiqDId KSc6e0wsnFxpLNYhFSV3c8 mqFBlczzX5FV3phv6dnLu8 z1mkavNzGTVyAUJcaWNSOG YuR4LldNumVm8wfMh1hMsf TjezJBV3Frj4ND1jcl06am e2mVbbLHSemjhnVsH9CYed TAXzwtddKOs1VXslKTOjoI F0ORQffPAmH9LgHKStEY2g hqc3EFV1AIxaFPJqBdT4XF LnwNEqMTLuqKhrRLbza056 KFL9VpClEE0kM9Mew2K8xO 9maXRcZGVmdGFiNzIwXGZv zb8njTIqCAjom0UoBCQ3bj G5aJCofZPhQWVrPR57Mopg z4IwVjghWOQ2YOAbksSiv0 Vxa9hiKvXrtyFwI3ogA6Je ZHJoZWFkXHBnYnJkcmZvb3 Lus7MzaVBtvIp2r8epYLGs EBEocFbfh7kpSJR9ZFVuL2 Q2pCYsg9oqEWxwBEMehIL1 ogD3RSCltYCfJ3EpgD4cHM XdIS6siru2y5xbKUA6NCew WKVzZgR9dyF2YONabYCxIP QxsQurZTvpx998VPD6SfAy DJLfm8CgE1OukPfyO35hxO feP87gZSNthMvxcF5paAcb hJ7sCeKkLtLkFGdaoXrqrP FpblxmMVxmczIwXGxhbmcx INTlIZsqY1prKpAbWJJfeI ppZLlfh7XoQQNsBLNtCrmm czIwXHBhciBJIGhhdmUgcG Dkj90zGJizcJRwDUReLTqa VFUygDlll7TvZ4xgRT0pB8 NsaWRlcyBhbmQgYWdyZWUg m9a7wUVxoEkyg3SpeXPlKX 92azUpRIWhSXU2VNMez8hc GP99zyhsXfSimG11yeIxul UmABEss0qsT2ojoWGyh5Al v0VwasSwLWmjx9XwFG1ftJ BozjksqDT5OUGmjOMkotGm evN5dKbwNBTmlZ4ksE9glD rlzZ4gBoGeLpPiCPacKI6r ADRkM9preYMxKESdRMWrC4 crUjHygY6lnAtmWmaqvnN4 RBEcsn72 Clinical Information (test code = 3396915360) Abdominal pain, epigastric [R10.13] Gross Description (test code = 7442193231) u6czzLNfDQHtjVHZTLJ4XH DaCQ8xpQijhLl6gYsqZIVj mpJ3uPNuLBcfy4xnJZL7t0 bkmzMMRxnvBGAgTX1dBFyf LBOqLU6qVpJfBPLsXwQhMF BhcGVydzEyMjQwXHBhcGVy kOV1URKiJO8tsuxsYBxqUS kyGPFbfjK8PFBblJOtE7Zm ZBEwXV3cgloiWFR0FKIWNi ppFq3xbRQirWinAsLjRjSz GAMePPYjZSHao0pcrwKRdr mzzOe4fS1KWEOqW5KjNQ4W u6zuBGBcqMUsJEZ3EJesl3 buHLhfROH8KORsVKSgWUIb GO0RYcGfVQU1GKf4RdW9Nk M9YDy9GLUUVKRdYRA2SPg0 OGW9JKd2USJeOE2qPDhfqC FxIWcmRypfQHukV962TLyb QFNoQ2IsV4SpQVzfWjEqGE ceOSZbZJZsRMdtHNCpJ8KI UVEgPPF0LFY1QnWuMRz4XA p0UA8TTpKuQDHpTJXkFTH8 JXSpFZr3HQxgOJ0KPFIsZx V7ODY3UwwyCEVeUSyiMEq1 IDIgXFxzcyAzIFxcZmwgXF yqL47ynLRvFBRGLanghHZn blxmczIwIFNQRUNJTUVOIE VwnWFqC7dbHeAyQmtiKKFi DQpccGFyZCANClxwbGFpbl xsdHJjaFxmczIyXGVwaWNO TXK3IZ6hEJRVNdzxoVFgGD YyKLwWaYNndS8zjuRLJWxe ZVVcD6YrdrGuVNqfRFMbdx 0zvOjuEEmqLnTaTEBqo4j7 zKG1pVOqySS8pLEylTfpGK 8pyODbTJAUZF22lUZbffdl ImdhbGxibGFkZGVyIiBhbm KiR71bd8cpdYPjp7XjNLG1 QF4cmWxaxaDfynDpY1SzJ7 FsbGJsYWRkZXIgKDguMSB4 ROUhHgP3FANaHIOrdCpqh7 q7mAZgFPZez640vRUdFLKq c7JpRSC8nuXrW1ToGM6jNO Othi34C3ijUDD9DH75tKId QWfin2ZyOaYuLF1qGGAuMC UqcPB6yEObHEGnkDGvQLAy lA1aiXZvbA2mZEGsWymcH8 odTGDBiKJez7OyM8ukVA5a uFBws5BzioXiRJOsGBIzmp RokUSswG7snPGiAVIoe0Hz qWNhRpG8JM3mdoTcBYRdb8 JybWFoHnnjUXL1tSJqVLJi iDFqMBllyLwloiBnt1ZjEV wfcSPsMDZqeMF1gNmmSDIw OkB5TPUlPCF6DZPvGnTxhV SpbbKjRP32LErbMV76RGcy YK5cOMPiPI7tNPTvUBTtxJ Onn6RwlYOryLDiBDDyMSeh zrXnerC7cYwgv20ry1FsTD RifJctaIGvzYRiWU81BXTv VWvtzPypKQ4dWGJ7tkCccy OpVK9yiQ40MT6tKKowaFzu qaGamFNin0szwedoPPKZem HsVPHsQZNhuCPiPKl9dWRe PJ7uOXIvbTWlnTTvyqFzDp kwAU2bMELrMIL8ZXcjRDR1 GOPvN5DeBSGeJrYxcRF9zA nxcj0aQMZbsOZxi1FknBJ6 qEUyOEWgE7Bbi73qBUJqOS EgrYKhlHN9HKFblL9zZXVo XHBhciANClxwYXIgDQpTYW oqsLPoVAkhHK2rZKLZSZyB Y4QQWHOocUFipMLukSftMg qyfXZ0KWdqHgrtxU5jqAWN KUFNCfvSDncxmqQrEF3CZX 2SNhERDO85KeCrILAjyQP5 BBBIKDuonAv8TGt4zKsbLr pgzqSbpJJfLrHTiZ6iZa9g ID5fWHN8AFI8JiY3o4heuG DtLJwmZkjopPSkzhU2ORhN XOGXMKvWWtSzIE4gLBxHMu pFRiP9AdVmOQEkoZV1XTIT DVzpvXd8HDb5tEkoMbsdqy MroODtCjZYuD9iqBholY2p qCXkW7zqFvUiPolpYWNqMX cch9YbTSeyiUaoOAXeGrMb NVthPENrA31as0SVy1Ygm0 miuMxzl1GayPItUM18LDMh nMPlEQV8LL3zlErpUWKyZI pccGFyZCANCn0= Disclaimer (test code = [id number]) f5nukUDhEFJiz7jwUOOipS FuZzEwMzNcZnRuYmpcdWMx EXxhksBlGMayz4FgU9ThCv AwMFxhbnNpXGRlZmxhbmcx PMGmHIW7kfWiQCRxQMbvFB AmGMujFc4caAPoiWlfYmWm YVXfn0horuTKQPudSxFoX4 37EPWoNLptf0jgb0WsCSHc lPXhf8O1BOJCexknlEl7oL yiV54rh9Y8RampK1dsIMYf BMZtP0KkCU9bIPKcCxe7ZT T1ZXT6CWLlOQRdD8LfGN0h VKDmbXAxKOo1r9waqAbnVC NwYDE0x4amNUfpqoRwFS7l xw8woPg5v9itdxAiGSNaYA FqqZDCJTAgI1ZezNxrGj4l wBg7jBejXtltGRM8Zcr3AU 7hxb56oul7uTepKOJfmvfk NrP8WAonKZHwkkotJLv1RK psIFHdtMC5SMGdwEDpO7Fo YFFeZV8wkvc5JTX6RDtfJV WiSfR4AUGwyIXiKZQgmAmr PWnsi129REW8XiMzAP5bQ6 Flr7Z8aV4gfEPlHTFrxPLs XsVqCRGdtg4dkNVfZDyfc5 EfUOT6kyV6lBHurOLiVVXp HB62Naonb8GlEhtto3YhZ9 3cfQJ4OEmcq7xcRX9qXhS5 yzMzSXcst4lqjC8kJiP8SK jmGM0fTP8cNOAxiM6ugdjd XHBnYnJkcmhlYWRccGdicm YiGl8alBtsTZT9OOidV9xx rG0eBnB4ELngC7yafZ7vBZ x0MLsajEA6WYGviO7wPB9v lkuri0zwOAubBSzyWZQdem G8qgX0XKLvnBAbV2RniO1s PBFkKG4rfhted2bwSKT8UY zoMMDhHKS6PlVjPBTrz0Ba aih2SwKkb5WiwVIyJJihC6 2ui550XZBoccOrV3jspPRp hizanCQklswaLAzxkhU1WF MkrlCfg5ZxYTGrDAX5ZGmo MPiqwMFgLNDhuMrlt0irB3 RscGFyXHBsYWluXGYxXGZz MjBcbGFuZzEwMzNcaGljaF kjASltLwKiOHKlQYofP9ik HzYnJ0IgCTIxEkCbbLXgQ1 ggVGhpcyByZXBvcnQgbWF5 JGixN1a7QVPdgnSacMw3qx RgQsYcITZbODF8RWfefXIy JIHym1ZuwwmxuQLaWk3wrU EaXDVrkT4mBRMcMKIuHEvv VQ6ueLd7QHGJuAEemXFkNf AGPLHoMG01ptKjWBLDxnio b7H1VIjaVRNat2MdrRVyW9 xol5HxFZGua66iJF5rf7I7 h1kmAIN1UT9pf9OrGWOccT GisGKsPMXiw9Ubzmbdb2Jv XUDyudImn9PcNNViwlUsjO JwVTCkqgRyqy0zmyBgCCXj GBYbB1QvzvualSugkoYqRP Pqvz1uofJyPHW4KGLOIHFu JCXqg1NjlF2qqYJAZYA8cB Qqfp5alpNGoJRhZJMsph63 KKPxSS5qC3tzAILeVRNkea IxjZTpa9OgQOIduBH0jYVb OA7IRaEZb42rDEVoOUOAji XiPWWhoMfpcNM6obT5sY9d IChGREEpLlx+IFRoZSBGRE QkEB3ifwZax9OtujFohTkm QQXxnTHfa3ZajOSkm6TppO hie8NtuRYezAXpFR2uCFKw clxwYXIgVVRNQiBMYWJvcm V4p1AtMMQlKVGnPAU2lGhj snm9UXSnvE8oGOUoQ8kosp phBXvjVNSih5DrlE0hxYTP pKDdm9WhyTJdgDICjRBxAI 5elpKwWCoBKNtSCAP3naCx SXNsh1KkLBtnZ5mdV82vhO swiYf5iUB4TCT7uF2cZyd+ IFxwYXJccGFyIEFwcHJvcH NrTUEmkCgjesObE0KpbvXn jT9saJRojqDpNA9tRN5gK7 J6qIGyFCZtlhKqw9jaPQem dmUgYmVlbiByZXZpZXdlZC Tdd5FoUVykAAY5KDxhwhJg bmNsdWRpbmcgSCZFLCBTcG WquNVaQVG1SIqfktErlhNa MQ4xsX2llGeehL4goCRipO W0mupbFQQtJVJsnZfpZOWv RP6xeCshvW7wYgVrIyLiJP fnRT9lVEZxU5xylOZhZRZp AHWzI3zaXfEhdS3toNqcXV xjZjJcZnMyMFxwYXJccGFy XHBsYWluXGYxXGZzMjBcbG FuZzEwMzNcaGljaFxmMVxk ReCeVTMzBRwpM3aiUwFbV9 UfPUHlZmWliWQzI3glLOxs YIF8PWVhAD1umDBeEP28xA Wlr0xzEYyfnDebbn1zM58v iTToWGlruAwcLNRiw34me9 NkYYJbuxBipk5lBHXixrH4 nZ8xLWUgxWzqUFKxvJSzRV Cef0RwFSrknFXyxhRvOLoc CPLpLHGmtFCdlxS3yeHvkb ZpaaCpUGPapPlhSKTdb3Oi DUKsAJhyb0Fjkd8ewHMdDT FulhRAqTuehGAlzI0vB1Tv MLCpATBdbq7aVKMpyG4oUV jde0NhgiziFWLcQPLuRBAt cgDshm5wNFUkcSKARC7PRC kquAXuy6NspzUzN7nPZMC4 NUQwNjYwMjgxKSBleGNlcH UmCUNzjw49VYXvcQ4hrPsu SPWguC3ddQ7drKhiiU0oNg TpZwVqAJcnNC3lVKBjQ7vb uPLmJLSzZPBoI2faFcJirY 9jaFxmMVxjZjJcZnMyMFxw YXJ9fQ== Embedded Images (test code = [id number]) [facility] 16:39:00Barbara Cartwright CRNA ? ? 01/29/2024 11:42 AMIntubationDate/Time: 01/29/2024 10:39 AMUrgency: elective Airway not difficult General Information and Staff Patient location during procedure: ORPerformed: resident/INVESTMENT CONSULTANT Performed by: Barbara Cartwright CRNAAuthorized by: Radha Hurst MD ? Indications and PatientConditionIndications for airway management: anesthesiaSpontaneous ventilation: presentSedation level: deepPreoxygenated: yesPatient position: sniffingMILS maintained throughoutMask difficulty assessment: 1 - vent by mask Final Airway DetailsFinal airway type: endotracheal airway Successful airway: ETTCuffed: yes Successful intubation technique: video laryngoscopy (Perez)Facilitating devices/methods: intubating styletEndotracheal tube insertion site: oralBlade: MacintoshBlade size: #3ETT size (mm): 6.5Cormack-Lehane Classification: grade I - full view of glottisPlacement verified by: chest auscultation and capnometry Cuff volume (mL): 8Measured from: lipsETT to lips (cm): 21Number of attempts at approach: 1Ventilation between attempts: noneNumber of other approaches attempted: 0 Additional CommentsSmooth, atraumatic, dentition and lips unchanged from pre-op. [facility] [id number] 16:19:00* Test Item Value Reference Range Interpretation Comme [facility] POCT PREG (test code = 1605) Negative On board controls acceptable with C Line (test code = 3574) Yes POCT PREG LOT # (test code = 3575) [id number] POCT PREG TEST DATE ( test code = 3576) [facility]20[facility] [id number] 16:19:00* Test Item Value Reference Range Interpretation Comme [facility] POCT PREG (test code = 1605) Negative On board controls acceptable with C Line (test code = 3574) Yes POCT PREG LOT # (test code = 3575) [id number] POCT PREG TEST DATE ( test code = 3576) [facility]27[facility]2024 [facility] [id number] 10:32:00* Test Item Value Reference Range Interpretation Comme [facility] POCT PREG (test code = 1605) Negative On board controls acceptable with C Line (test code = 3574) Yes POCT PREG LOT # (test code = 3575) [id number] POCT PREG TEST DATE ( test code = 3576) 2024-11-23 Lab Interpretation (test cod e = [id number]) Normal [facility] [id number] 15:14:36Ordered by an unspecified provider.[facility] Surgical Pathology [id number] 16:13:04* Test Item Value Reference Range Interpretation Comme [facility] Case Report (test code = [id number]) Surgical Pathology ?Case: [id number] ? Authorizing Provider: ?Yisel Hart MD ?Collected: ? 12/24/2023 1057 ?Ordering Location: ? ? GI Endoscopy OR Department Received: ?12/24/2023 1148 ?Pathologist: ? Brendon Dawson MD PhD ?Specimen: ? ?STOMACH, 1. gastric biopsy ? Final Diagnosis (test code = 6167408274) n7nhcMYrOXJtx1qfLIBzsQXqT zEwMzNcZnRuYmpcdWMxIHtccn CaEEffvFddWKZ5QVMbFB9pfTf mtBi8wQptPBAkmyQ4yMJqFFyp n3drTJM3n3keilyqDYVkCIfwL u1kjLPunFezOlSkLPInIPa5wI 08TIMrmG0ppECfKTp0OZFxeFL npsEsPfUtHPPmgLFtgNR1TERu VZ6bxyaqXOmlIHqmLCKmwmP4S SAugVLfU9ScPSGiWJ2mfhfzAB J2JNsuZNGtKJU4CoPfVRAtd7F hklv6FvOeuKOgPHbbkZJamdpe vdZgXGGdtfUEPcGENH0ETFLEH KHSQO2KK8k7QYPdektmvLM5XR SlCJyXB6TWEPTeXBEIN6QYOGu PXWzfLe6yXZYRLU9AO2pVC1XA EREEZO9KVCubJCMgFZOFLrOOO 8DCQknZHGMGBaLNOtJHL7WKGj MIMB8VCQRSOAPRIYFuYPTQNxX JRklFRFxwYXIgLSBOTyBILiBQ WUxPUkktTElLRSBPUkdBTklTT VMgSURFTlRJRklFRFxwYXJccG YgVQltLOT6k9kxqPEzTVZggMX oIpBpBNKoXMKgk6siYTZalCDx ZzEwMzNcZnRuYmpcdWMxXGRlZ bBja7jqh789qJVcq6ubEEOrTz L1gBKxNGBtvTzqskt8tAveOqK iUVNdr7iijqUyZfGwUOKoTKBi EKBogSHjD168BNMiJGqdc8dyn 0NyBXUlmALpf6H6OBBWLXcfZb TnM666j3xyu0xotuWwmKU8WGQ oLHC2LFjyphDlijW8YAojbZSv ShU0NVxkxuIxRGqiaiMpveYeQ ux8QNZqU031CGS0xMmvq4wvTT M5AHPkSZVvRcweWr9mcTJzO48 0QDIgJELFHYHnqRx6VHEpjqMd huAzeTMVg531C540e7wqUTNel uPknKmNwfrcq6tuS689NCKtoL ZpnyOkUsOyBUOqkAXbdFS1VNU oLK6tpyjrZTxsSYjtLHKfynC7 LLAbaYBpJ4ByNJVvXS1pxrghR XE0VQgfSXTpHNL1LjSkDZMht9 Uexoo8KaLpkj5mdt59BKC0j5Z xmOrwVXO8CRY3NtGjMa3prFWi HZDxDQ5xQsDxdYPrVYTosk09x NjuGLyepiMzyF9nReHfBPYuuV JpHBVuQL3gaXDdYTIzwM8ffeb jXHBnYnJkcmhlYWRccGdicmRy Xq2yfYvqRQY9PVcmX7ylaW0hN gI9RGoiI0nhhR0bJPx6QShzmZ H8XIRevO9kUZ2fwpxbe1ujTWj mDQjyOOQfgtE7uiR5HGLxuSVx M4WvqG8cUNBqMD4hhdsut0fwT IV1YFfpCBOlPUT0UdAgNJOul5 Npjlp5RhPfb7WgxJJbSFsjI89 jj027RYUsruMvV3kduIAxohnl oLQujattBLjrsmR8KLCsQPDvW WluXGYxXGZzMjBcbGFuZzEwMz NcaGljaFxmMVxkYmNoXGYxXGx oG5axIoPdD6QaFYXnNnUvsQIw HCelzRE6RRDwKEDez74glYx1I DBybavpu6DrWAAjyFLbxMIddV 5zvhSqw8otGJYiOWHsZUHhS5M bLYK0uNKgTULdiMOtzBJ4RC1g goOuQW2tCCWiZahmjeDzpHVqc mLuBGJeOBaxh2wuZM3jHPDoqH azhC4tvDP3JCMpm9fgpQUzbCQ yd1hqf7PxwjZfCAdpJZZzROnj WUOuYYKrTE4bUXNoyFRjqwDjf 6C4AotxlVUgdfnnVpuobeV2DE stikwrWQUdIUylE7qhHmPqWDV ijRmiDkkad0OrQHJcVVFdOqmo cGFyfX0= Clinical Information (test code = 4827345891) Lanre Bales is a 28 year old femaleHematemesis with nausea [K92.0]Coffee ground emesis [K92.0]Abdominal pain, epigastric [R10.13]1. gastric biopsy eval H pylori Gross Description (test code = 4414450538) w6ukbSYrSZUogTNYDHE7VENyH C6cbQfypIa5aPjqOCNiyhE1jZ LdVBsgl2xaGCS0a9epnxXUYxr yIJEzEV3kXQtcHNCfDT1zRhDo XGRlZmYxXHBhcGVydzEyMjQwX AXpqBUacVM1XRDqNS6wulczMD pjIMpdPEErymS2JLGwsFJwM3N dZGRmRL3srbnwSIF0QTOWBqai Jd2hmYQouRwoUxVfQaUvRDUyD JLfUFTki1myhlHJbdhjhWl8iD 2TCIZrM8SaKT6Ll9xeNVWofMT cTNZ7YHymd4xxGUprIDG3TVZg MCAiRMUgDG9SPjSbCGZ9OYo6P TFlGuV2QDy3BQJBJBNiONU4QF D4WmW5EKb6HZMoZP3vOLvgzRC qOEtlXzyxRSelI896MOghSXZk H4MvS5OwQCywQqSvOSkbIEHoE QNwHOooVEThW4AYERTyOEB8BG C4MGIhHWo6TFn3JS6YNtQwIQR aJbh7XjB8TUJhGMp9YIujWP7Q JKZaNPD9IBflFnUtHKKnSOFeD Zr9CHAtEAxczzGgETbcEnpvCI ejW11heDCnAMTMIrccfQInxby mczIwIFNQRUNJTUVOIEFcbHRy O7uiAvCqJdovXOBgGFbbrAIdK CANClxwbGFpblxsdHJjaFxmcz SiCFRxbJOVHZP8RU6bLUSRSqj yvMUwCYXsLWgFjTPtyW1jkyYX PDdeNIBlB7CviqHpCEqfNMMak z7npJddYBqyFpGtfBKoHKakhN unzJfrMAJgbIjzxzGpU7L3sfJ iEV0xKVBVPMQgmC9zUZSaKPLg z1RxaFLzrZusU1WwqMCvBmHrg J0no6txB4N9IBeRNSHizxRqZ2 0jn6vuzPTwp8HsRoT8SN5jeZa uonQsxrJoW3YyTQRty71ioXA8 hPTxvQJeHxDlM83xbmOfGYonT mCfDE63HGUuJRguHZG1COM7EC QyqCDfv7qweqvvYP85XEqiOR8 5TZpeEP3cOEBmENsrQEWqV3Vl F1L9FNfbZHKfNCAbaCKupD2ja iDkhjKtbAh0KMWkRPL9uQStpQ ggALJdKwmxuMQ1MLVcBuTmmmU wt6MszRn5aVJmYAsbWWYggJ7e yA8nLGNyQKLxivSJSwxqICHtB Mgif9QnUItgmKobUNIkQzEqKX dFuMwdVTSBC4pbhKGsVPbiOHF VYIyXH6NRMZ4KYPSssARTAYV6 RI5pHJluMDSmH5JkR9ZiaeX4z 5wmkCpsa0AjfCQiRC9veEUuTW 7BMFSwlqEpPMz4 Disclaimer (test code = 1407547941) t5rbkHOxYSTlx4cmEBUmwQCmB zEwMzNcZnRuYmpcdWMxIHtccn YbWYamd2RtT1JfBzJpIYoofbF wPXNxHigtzgnnADBaNBF3zdHz CAVhJVfeLPYlAJhpSv7onNTta YjnZyZaIFMhr7xrccNMVCiqHd GwM363ASZyFDujq9fnm5RiFGX hsARib3R8JHDUmatbkVa4eLln M20bj9S8UwnoL2srPLPiRORsL 4GvEZ8eLVYaSsn8HJO8PSP6VZ OmYIStI0SmVK6cAPPuwPTzOMh 4v7pnfXekZFYdTWU0p2huZNew eoKfAU4tjj8aqNd6i4ilwfYyV XZcIWJwuAYKLMOfZ3RnkAufLe 9mcHp1zAvcJrcxUFZ9Qhk8TY3 luj69mnu8pVgxDPBhdeppEcW9 YGaeLDDvecrkIGw7FUrwCAHxh XN0RIGfyZFaM3XuLVDwOU7mkn t6XND4DEnzCQKjXdA3ECWitGW kEHXxfRnoTVeiv437QDF4YnPm WY7gY3Bbw9Y3cY5ycJPkGFTjt CJwBiUhXTJwqd1jfJEtVCroh7 YrHBZ5roL0vMXovGTuQZHyVL0 0Tajux1JoRwvpv2TmC46ngSA9 RNsxi1mqYU7iMbH9omPiWUpdb 1rsqP2sHmM5ORxxTO7qNS9tSR LciD4krnvgWRRyErYwqzpoAFT vkNmbjhXvWd8ruNroICX9MGvu E3wyaY1aDhB9VAkwB4utdS2sV Op5UIhiwIF3DUCqjY8oQI8yvj eqm8aiSSeiPGogDLRxdhV8rrF 5IVQteMSlG2PkqK3cQHAcCT6i chdwt8tkGYY9YNssICDxFJC1P jMhDDNzh7Dopbm3ZbBby6XleR DqBTdeM65ge628OCRyyzUnT1z wbGFpblxwbGFpblxmMFxmczI0 DXAbsgBvi4DfQCQuRYS9WUtjJ MydfSYrAQWruLcgf9nnU7BtwG FyXHBsYWluXGYxXGZzMjBcbGF uZzEwMzNcaGljaFxmMVxkYmNo QDMeEGphU2oiFdYpG5HkWGQfP rMcjOGdM0uaBXjlowOqYFJnrm AqhLK1IHbyP2s5GIYqhwGpxFt 8pzBaJxJtBPXtWKT2NIwivXHx DURvk6BfplbbcITxOx9vgLUbL RRnkG8pVPOnWGRuVYgrLR7kvA q9DSWOgPElzICtEuRQVQAzBY8 4feNnZTAPtvyrx5C9OAlnBISe s5ZjbZMbF0eaj0DdSIJxc40wM H3ds9R6f6liZRF9GL5jr1MnMF XzoMLbvCDxDIDbt9Onfoozv0C wYLEqfnYot2LaGDDbajRgkZTs ACVwfzMsvn9pxpMaQGWkTHQbG 7LixilofVnggxQwYUSjwx0mqi ZeEVB9XUEJDZRjGXOgj6KllW4 jzVQPXOP1fCNepj8aykDYbZAk BBTnhi02STSgEO3mW5jaYSOaM QPmbySpdQAzk6WiTWQmzDD8vY ZbEK3VKgJTb42mTIEwYZGOctO bECNieHvzsBX6vjI5vM2sHAjL REEpLlx+BGFtAANFIMTvHQ4nm vWzs2JqjbXxnPeuFEKrwKYio6 HojFCmo7CefCjcq6CdtSXbeUJ pSN2pDTXztotbZCQrXQVZMpFP QEFhcuC2e0VsQPWqEAWwEIR1a Djdusx5WGGjcK3bGBFxB1bsrw cdUOrtDHVbh4HieN0sgDZBtTY ug1RdrRZlhLIZlVIrIU7wiqOz IMeQTLpHKVA7egVjRTWlv3VjE JnjQ6adC13jfQnawFw0wFJ2DF Q3pT7pTsj+IFxwYXJccGFyIEF yyXAhnYFxEXZskJvxkkKwL2Fv smEyyD0loLQjfiOoBA3uOZ8kN 8R7lAInVLRzicFrs2irPRxghl ZfPiSuikOcAPSsDRfhQCJeb2Z dYBmxCOQ8ZHdgnsThybNjqVZx fxwvIQJVDNGEdHRwrTPvITE0M WtupmNkvkRtRY2wcQ6ssNlwtM 7uwYYrbDJ3brlhHLCxGXWkdUs mHXLhXB6mgMybmC0tOxZwFaRk OUxuHG0eJLViA1omaQEyIXWoJ QFsQ3klVfImfV6zzRxiXEewCp JcZnMyMFxwYXJccGFyXHBsYWl uXGYxXGZzMjBcbGFuZzEwMzNc aGljaFxmMVxkYmNoXGYxXGxvY 5rkXcTlD6EjNWJfMcUljRVaU1 tjBJweHNN2NKGwAW1rqFEgUD3 3rKXkf2pfYIwbuSdjah3uB11y wGCrPHpdyIwrPQQdz96cr1YxP HLfscUlzz7gPTIukuX0yO3tHB WmuBhfYVHglAInJZOqe4CuWLb naXRpemVkIGdsYXNzIHNsaWRl irP6eaEelnQqgeYvUMSweDfhL UPrl7NtBDJmSIxak0Dcvu6oxV EmHAUygjXGrXickKRdrC3zB5G hWWQpJYVwft1wBEJytM7rMNgz x9DgzvwdOYNcDVJzWTVfyrWvr a3kBHGmxDOJCZ6USTnqbEUyx6 DgwuEzG6uPHDX5XAFmYcKtWvf fEWBrdZZwkNGkKIOjjx80JLGq eS0elQrnDTDczY8ocG5yrGqrn Z7yKkEsJkNfRZoxPU7jZVWtS6 vwbRBzWBChBYEjT4xzSbQgeQ2 jaFxmMVxjZjJcZnMyMFxwYXJ9 fQ== Embedded Images (test code = 2484439393) [facility] [id number] 16:40:41EXAM: US OVARY TORSION HISTORY: 28 years-old Female; Provided indication: eval for torsion; pelvicpain; bilateral 5.1cm cysts seen on CT . LMP = 4Pregnancy test = Negative. TECHNIQUE: Transabdominal and transvaginal ultrasound imaging and colorDoppler evaluation of the pelvis was performed. Spectral Doppler evaluationof the ovaries was performed. [employer] images were obtained for therecord. COMPARISON: Same [...] Doppler.[facility] ABDOMEN PELVIS W [id number] 14:33:00Indication: Nausea/vomiting ? Comparison: None RL: 4209 [...] noted.[facility] IrvingPregnancy Test, [id number] 11:59:46* Test Item Value Reference Range Interpretation Comme nts PREG SERUM (test code = 0684210461) Negative RUMA (test code = RUMA) Less than 10 IU/L. ?If low titer or ectopic is suspected, resubmit specimen in 48-72 hours. [facility] Irving[facility] Metabolic Aakjj2124-73-83 11:58:40* Test Item Value Reference Range Interpretation Comme nts NA (test code = 3877577938) 138 mmol/L 135-145 K (test code = 9899842759) 3.5 mmol/L 3.5-5.0 CL (test code = 4108183633) 106 mmol/L 98-108 CO2 TOTAL (test code = 2424406782) 23 mmol/L 23-31 AGAP (test code = 0238505022) 9 2-16 BUN (test code = 0124239141) 6 mg/dL 7-23 L GLUCOSE (test code = 1597006987) 122 mg/dL 70-110 H CREATININE (test code = 2160-0) 0.61 mg/dL 0.50-1.04 TOTAL BILI (test code = 6306158114) 0.6 mg/dL 0.1-1.1 CALCIUM (test code = 3160164533) 9.0 mg/dL 8.6-10.6 T PROTEIN (test code = 1747618717) 8.1 g/dL 6.3-8.2 ALBUMIN (test code = 8243397497) 4.4 g/dL 3.5-5.0 ALK PHOS (test code = 0477140615) 85 U/L 34-122 ALTv (test code = 1742-6) 20 U/L 5-35 AST(SGOT) (test code = 6706303240) 19 U/L 13-40 eGFR (test code = 40957-1) 125.8 mL/min/1.73m2 CKD-EPI eGFR (2020). Assuming creatinine has been stable day-to-day for at least three months, the eGFR indicates Category G1 (>= 90 mL/min/1.73 m2) Lab Interpretation (test code = 32461-7) Abnormal [facility] IrvingLipase, Gngsu7181-27-88 11:58:19* Test Item Value Reference Range Interpretation Comme nts LIPASE (test code = 4431035106) 40 U/L 0-220 Lab Interpretation (test cod e = 68985-3) Normal [facility] with Kkrnsaibbuyh6721-07-26 11:41:57* Test Item Value Reference Range Interpretation [...] 32.8 g/dL 31.6-35.1 RDW-SD (test code = 93669-0) 51.3 fL 39.0-49.9 H RDW-CV (test code = 788-0) 13.7 % 12.0-15.5 PLT (test code = 777-3) 349 166-358 MPV (test code = 29759-0) 9.3 fL 9.5-12.9 L NRBC/100 WBC (test code = 7397000982) 0.0 0.0-10.0 NRBC x10^3 (test code = 8509757161) See_Comment [Automated messa ge] The system which generated this result transmitted reference range: 10*3/?L. The reference range was not used to interpret this result as normal/abnormal. GRAN MAT (NEUT) % (test code = 770-8) 73.3 % IMM GRAN % (test code = 0232347349) 0.40 % LYMPH % (test code = 736-9) 19.0 % MONO % (test code = 5905-5) 4.8 % EOS % (test code = 713-8) 2.0 % BASO % (test code = 706-2) 0.5 % GRAN MAT x10^3(ANC) (test code = 3369096317) 7.18 10*3/uL 1.88-7.09 H IMM GRAN x10^3 (test code = 8489264195) 0.04 10*3/uL 0.00-0.06 LYMPH x10^3 (test code = 731-0) 1.86 10*3/uL 1.32-3.29 MONO x10^3 (test code = 742-7) 0.47 10*3/uL 0.33-0.92 EOS x10^3 (test code = 711-2) 0.20 10*3/uL 0.03-0.39 BASO x10^3 (test code = 704-7) 0.05 10*3/uL 0.01-0.07 Lab Interpretation (test code = 56371-5) Abnormal [facility] Irving[facility]. METABOLIC PANEL ([id number])2023-11-08 17:45:25* Test Item Value Reference Range Interpretation Comme nts NA (test code = 1833785355) 136 mmol/L 135-145 K (test code = 8338568325) 3.1 mmol/L 3.5-5.0 L CL (test code = 8717627922) 105 mmol/L 98-108 CO2 TOTAL (test code = 3317278541) 21 mmol/L 23-31 L AGAP (test code = 9975073078) 10 2-16 BUN (test code = 3670190913) 12 mg/dL 7-23 GLUCOSE (test code = 5559548500) 92 mg/dL 70-110 CREATININE (test code = 2160-0) 0.57 mg/dL 0.50-1.04 TOTAL BILI (test code = 7261120724) 0.6 mg/dL 0.1-1.1 CALCIUM (test code = 9523926191) 9.0 mg/dL 8.6-10.6 T PROTEIN (test code = 3561690574) 8.0 g/dL 6.3-8.2 ALBUMIN (test code = 2926718425) 4.3 g/dL 3.5-5.0 ALK PHOS (test code = 1030022553) 81 U/L 34-122 ALTv (test code = 1742-6) 17 U/L 5-35 AST(SGOT) (test code = 7884475550) 45 U/L 13-40 H eGFR (test code = 75934-6) 127.9 mL/min/1.73m2 CKD-EPI eGFR (2020). Assuming creatinine has been stable day-to-day for at least three months, the eGFR indicates Category G1 (>= 90 mL/min/1.73 m2) Lab Interpretation (test code = 02123-3) Abnormal [facility] IrvingLIPASE2024-09-19 16:30:35* Test Item Value Reference Range Interpretation Comme nts LIPASE (test code = 5876970890) 53 U/L 0-220 Lab Interpretation (test cod e = 36863-5) Normal [facility] WITH [id number] 16:15:57* Test Item Value Reference Range Interpretation [...] 33.1 g/dL 31.6-35.1 RDW-SD (test code = 72909-7) 50.1 fL 39.0-49.9 H RDW-CV (test code = 788-0) 13.8 % 12.0-15.5 PLT (test code = 777-3) 471 166-358 H MPV (test code = 40282-7) 9.2 fL 9.5-12.9 L NRBC/100 WBC (test code = 8866304440) 0.0 0.0-10.0 NRBC x10^3 (test code = 1227683907) See_Comment [Automated messa ge] The system which generated this result transmitted reference range: 10*3/?L. The reference range was not used to interpret this result as normal/abnormal. GRAN MAT (NEUT) % (test code = 770-8) 77.8 % IMM GRAN % (test code = 2706291452) 0.30 % LYMPH % (test code = 736-9) 16.7 % MONO % (test code = 5905-5) 4.7 % EOS % (test code = 713-8) 0.2 % BASO % (test code = 706-2) 0.3 % GRAN MAT x10^3(ANC) (test code = 1525466410) 9.31 10*3/uL 1.88-7.09 H IMM GRAN x10^3 (test code = 2624298339) 0.04 10*3/uL 0.00-0.06 LYMPH x10^3 (test code = 731-0) 1.99 10*3/uL 1.32-3.29 MONO x10^3 (test code = 742-7) 0.56 10*3/uL 0.33-0.92 EOS x10^3 (test code = 711-2) 0.03-0.39 L BASO x10^3 (test code = 704-7) 0.03 10*3/uL 0.01-0.07 Lab Interpretation (test code = 76901-5) Abnormal [facility] OIKL8790-72-23 16:01:00* Test Item Value Reference Range Interpretation Comme nts POCT PREG (test code = 1605) Negative On board controls acceptable with C Line (test code = 3574) Yes POCT PREG LOT # (test code = 3575) [id number] POCT PREG TEST DATE ( test code = 3575) 11-28-24 Lab Interpretation (test cod e = 90886-4) Normal [facility] IrvingPOCT [id number] 16:30:00* Test Item Value Reference Range Interpretation Comme nts POCT PREG (test code = 1605) Negative On board controls acceptable with C Line (test code = 3574) Yes POCT PREG LOT # (test code = 3575) [id number] POCT PREG TEST DATE ( test code = 3576) 03/28/2024 Lab Interpretation (test cod e = 14629-1) Normal [facility] IrvingPOCT [id number] 20:18:00* Test Item Value Reference Range Interpretation Comme nts POCT PREG (test code = 1605) Negative On board controls acceptable with C Line (test code = 3574) Yes POCT PREG LOT # (test code = 3575) POCT PREG TEST DATE ( test code = 3576) [facility] IrvingPO[facility] [id number] 20:18:00* Test Item Value Reference Range Interpretation Comme nts POCT PREG (test code = 1605) Negative On board controls acceptable with C Line (test code = 3574) Yes POCT PREG LOT # (test code = 3575) POCT PREG TEST DATE ( test code = 3576) [facility] OR [facility] ONLY - [id number] 04:42:10* Test Item Value Reference Range Interpretation Comme nts RPR (Qualitative) (test code = 94800-4) Nonreactive Nonreactive Lab Interpretation (test cod e = 95253-4) Normal [facility] IrvingHepatitis B Surface Pnrgfvn3351-37-88 17:49:35 * Test Item Value Reference Range Interpretation Comme nts HBsAg Semi-Quantitative (mesha t code = 5195-3) Negative Negative [facility] IrvingHIV 1/2 AG-AB WITH [id number] 12:19:16* Test Item Value Reference Range Interpretation Comme nts HIV Semi-quantitative (test code = 60157-7) Negative Negative RUMA (test code = RUMA) Non-reactive for HIV-1 antigen and HIV-1/HIV-2 antibodies. ?No laboratory evidence of HIV infection. ?Repeat in 2-4 weeks if acute HIV infection is suspected. [facility] METABOLIC PANEL (20085)2021-11-26 11:29:08* Test Item Value Reference Range Interpretation Comme nts NA (test code = 2189333190) 137 mmol/L 135-145 K (test code = 4379826286) 3.6 mmol/L 3.5-5 CL (test code = 4157110450) 105 mmol/L 98-108 CO2 TOTAL (test code = 7637366090) 21 mmol/L 23-31 L AGAP (test code = 2621288941) 2-16 BUN (test code = 6719462499) 4 mg/dL 7-23 L GLUCOSE (test code = 2379948328) 93 mg/dL 70-110 CREATININE (test code = 5773033465) 0.49 mg/dL 0.5-1.04 L TOTAL BILI (test code = 2972991359) 0.2 mg/dL 0.1-1.1 CALCIUM (test code = 2469227835) 9.0 mg/dL 8.6-10.6 T PROTEIN (test code = 8386268845) 6.9 g/dL 6.3-8.2 ALBUMIN (test code = 7118562122) 3.7 g/dL 3.5-5 ALK PHOS (test code = 5526351349) 169 U/L 34-122 H ALTv (test code = 1742-6) 15 U/L 5-35 AST(SGOT) (test code = 7634300562) 23 U/L 13-40 eGFR (test code = 4574907796) mL/min/1.73m2 RUMA (test code = RUMA) Association [...] imaging tests). Lab Interpretation (test code = 83584-2) Abnormal [facility] IrvingURIC [id number] 11:28:48* Test Item Value Reference Range Interpretation Comme nts URIC ACID (test code = 5737973974) 3.4 mg/dL 2.9-6 Lab Interpretation (test cod e = 50775-0) Normal [facility] IrvingLACTATE YHHEBHRYPEIQZ6194-43-09 11:24:10* Test Item Value Reference Range Interpretation Comme nts LDH (test code = 2639036251) 216 U/L 120-246 Lab Interpretation (test cod e = 97814-7) Normal [facility] IrvingType and Screen - ONCE [id number] 10:30:18 * Test Item Value Reference Range Interpretation Comme nts ABO & RH (test code = 20) O Positive Performed at [facility] Laboratory [facility] [address] [place] [address] Free: [phone] No. [id number] IAT (test code = 1185) Negative Performed at [facility] Laboratory [facility] Blood [place] [address]Toll Free: [phone] No. [id number] [facility] IrvingCBC with Unlsgwikjmxb0820-80-69 09:46:38* Test Item Value Reference Range Interpretation [...] 34.9 g/dL 31.6-35.1 RDW-SD (test code = 62151-4) 40.9 fL 39-49.9 RDW-CV (test code = 788-0) 12.2 % 12-15.5 PLT (test code = 777-3) See_Comment [Automated messa ge] The system which generated this result transmitted reference range: 166 - 358 10*3/?L. The reference range was not used to interpret this result as normal/abnormal. MPV (test code = 95117-1) 9.9 fL 9.5-12.9 NRBC/100 WBC (test code = 2456753439) See_Comment [Automated [employer] ssage] The system which generated this result transmitted reference range: 0.0 - 10.0 /100 WBCs. The reference range was not used to interpret this result as normal/abnormal. NRBC x10^3 (test code = 6285126787) See_Comment [Automated [employer]] The system which generated this result transmitted reference range: 10*3/?L. The reference range was not used to interpret this result as normal/abnormal. GRAN MAT (NEUT) % (test code = 770-8) 70.4 % IMM GRAN % (test code = 1536646872) 0.70 % LYMPH % (test code = 736-9) 20.1 % MONO % (test code = 5905-5) 6.0 % EOS % (test code = 713-8) 2.5 % BASO % (test code = 706-2) 0.3 % GRAN MAT x10^3(ANC) (test code = 5932579689) 8.92 10*3/uL 1.88-7.09 H IMM GRAN x10^3 (test code = 9811237199) 0.09 10*3/uL 0-0.06 H LYMPH x10^3 (test code = 731-0) 2.55 10*3/uL 1.32-3.29 MONO x10^3 (test code = 742-7) 0.76 10*3/uL 0.33-0.92 EOS x10^3 (test code = 711-2) 0.32 10*3/uL 0.03-0.39 BASO x10^3 (test code = 704-7) 0.04 10*3/uL 0.01-0.07 Lab Interpretation (test code = 73218-3) Abnormal [facility] URINALYSIS W SPECIFIC [id number] 14:56:00* Test Item Value Reference Range Interpretation [...] POCT U APPEAR (test code = 3267) [facility] URINALYSIS W SPECIFIC [id number] 14:56:00* Test Item Value Reference Range Interpretation [...] POCT U APPEAR (test code = 3267) [facility] URINALYSIS W SPECIFIC [id number] 14:58:00* Test Item Value Reference Range Interpretation [...] POCT U APPEAR (test code = 3267) [facility] URINALYSIS W SPECIFIC [id number] 14:58:00* Test Item Value Reference Range Interpretation [...] POCT U APPEAR (test code = 3267) [facility] URINALYSIS W SPECIFIC [id number] 14:58:00* Test Item Value Reference Range Interpretation [...] POCT U APPEAR (test code = 3267) [facility] URINALYSIS W SPECIFIC [id number] 14:58:00* Test Item Value Reference Range Interpretation [...] POCT U APPEAR (test code = 3267) [facility] URINALYSIS W SPECIFIC [id number] 14:58:00* Test Item Value Reference Range Interpretation [...] POCT U APPEAR (test code = 3267) [facility] URINALYSIS W SPECIFIC [id number] 18:21:00* Test Item Value Reference Range Interpretation [...] [facility] History and Physical Notes Date/Time Note Provider Source 2024-01-29 09:03:32 Patient seen and examined in the preop/DSU area. No changes in history and physical from our note below. -OR today for laparoscopic cholecystectomy -NPO past midnight -Surgical consent signed Kiko Belcher MD 01/29/2024 9:03 AM PGY4, General Surgery [facility] [employer]IL [employer] Associated attestation - Eva Bryan MD - 01/29/2024 10:25 AM DIRECT MAIL MARKETER Attending Attestation: I personally evaluated and examined [...] Eva Bryan MD - 01/07/2024 11:15 AM DIRECT MAIL MARKETER Images from the original note were not included. GENERAL SURGERY CLINIC NOTE Reason for Visit / Chief Complaint: Abdominal pain, gallstones History of Present Illness: Lanre Bales is a 28 year old female with PMHx as below who presents for evaluation of abdominal pain and gallstones. She was seen at [facility] ED in 11/08/2023 for vomiting. Work [...] with nausea and vomiting and presented to [facility] on 01/01/2024. An US was obtained [...] lives with mother and child, FOB involved. Baptism preference: Religion. Has one cat, educated about diego litter [...] min Stress: No Stress Concern Present (12/19/2022) [employer] - Occupational Stress Questionnaire Feeling of Stress : Not at all Social Connections: Moderately Integrated (12/19/2022) Social Connection and Isolation Panel [NHANES] Frequency of Communication with Friends and Family: More than three times a week Frequency of Social Gatherings with Friends and Family: Twice a week Attends Baptism Services: 1 to 4 times per year [...] othopnea, claudication, edema, coronary artery disease/history of DE Respiratory: Cough, sputum production, hemoptysis, wheezing, shortness [...] consent obtained. Eva Bryan M.D. 01/07/2024 14:58 [facility] Notes Date/Time Note Provider Source 2024-04-12 05:44:28 Pt given printed and verbal discharge instructions regarding viral syndrome Pt verbalized understanding of instructions, pt awake alert oriented, resp reg unlabored, skin w/d, color appropriate for race, moves all ext well,pt encouraged to follow up with pcp Advised to seek medical attention for new/prolonged/worsening of symptoms No adverse reaction to meds given in ER noted upon discharge Awake, alert oriented, resp reg unlabored, skin w/d, pt leaving amb with steady gait, in no apparent distress CT MAIL MARKETER Debbie Felix RN [facility] 2024-04-12 04:30:19 C/O cough, headache, nasal congestion, sore throat X [address] MAIL MARK[employer]ER Margot Amin RN [facility] 2024-04-08 07:58:05 2.6 cm left ovarian cyst without significant free fluid - f/u with cane feeder. [facility] 2024-04-07 08:56:55 Radiology report from [facility], placing in providers basket for review E Rudolph [facility] 2024-03-31 12:10:42 1. Class 3 severe obesity [...] 7.5mg qAM. Dispense: 30 capsule; Refill: 0 CT MAIL MARKETER [facility] 2024-03-28 15:19:14 Images from the original [...] MD Gastroenterology: Antiulcer - Proton Pump Inhibitors Ijcylw8203/28/2024 12:22 PM Protocol Details Valid encounter within last 12 months To be filled at: [facility] [address] [place] [address] Last Refilled: 01/2024 Recent Visits Date Type Provider Dept 03/27/24 Appointment Jess Munson MD [facility] Medicine 02/27/24 Office Visit Jess Munson MD [facility] Medicine 01/03/24 Office Visit Jess Munson MD [facility] Medicine 11/19/23 Office Visit Jess Munson MD [facility] 08/06/23 Office Visit Jess Munson MD [facility] Family Medicine 01/24/23 Office Visit Jess Munson MD [facility] Medicine 12/25/22 Office Visit Jess Munson MD [facility] Showing recent visits within past 540 days with a meds authorizing provider and meeting all other requirements Future Appointments Date Type Provider Dept 05/28/24 Appointment Jess Munson MD [facility] Showing future appointments within next 150 days with a meds authorizing provider and meeting all other requirements CT MAIL MARKETER Dhara Corral MA [facility] 2024-03-28 13:09:22 Images from the original [...] by Jess Munson MD Provider Review Required Qumpzk8903/28/2024 09:36 AM Protocol Details This refill cannot be delegated Valid encounter within last 12 months To be filled at: [facility] [address] [place] [address] Last Refilled: 02/27/24 Recent Visits Date Type Provider Dept 03/27/24 Appointment Jess Munson MD [facility] 02/27/24 Office Visit Jess Munson MD [facility] 01/03/24 Office Visit Jess Munson MD [facility] 11/19/23 Office Visit Jess Munson MD [facility] 08/06/23 Office Visit Jess Munson MD [facility] 01/24/23 Office Visit Jess Munson MD [facility] 12/25/22 Office Visit Jess Munson MD [facility] Showing recent visits within past 540 days with a meds authorizing provider and meeting all other requirements Future Appointments Date Type Provider Dept 05/28/24 Appointment Jess Munson MD [facility] Showing future appointments within next 150 days with a meds authorizing provider and meeting all other requirements CT MAIL MARKETER Dhara Corral MA [facility] 2024-03-26 10:41:39 PA has been completed via Cover My Meds. E Thomason RN [facility] 2024-03-26 08:53:46 Summary: Prior Authorization Request Images from the original note were not included. E Gray [facility] 2024-03-18 08:12:42 Pt is active on Datadog, message has been sent. E Thomason RN [facility] 2024-03-18 08:03:48 Currently Qysmia which is not covered by patient insurance is the one approved technician terminal and repeater . Every other regimen will be an off label use. Phentermine is approved for 3 months use only which patient has already tried. [facility] 2024-03-17 14:54:51 Call placed to pt, Pt states her Qysmia was not approved and would like refill on phentermine, Last Refilled: 01/28/2024 Recent Visits Date Type Provider Dept 02/27/24 Office Visit Jess Munson MD [facility] 01/03/24 Office Visit Jess Munson MD [facility] 11/19/23 Office Visit Jess Munson MD [facility] 08/06/23 Office Visit Jess Munson MD [facility] 01/24/23 Office Visit Jess Munson MD [facility] 12/25/22 Office Visit Jess Munson MD [facility] Showing recent visits within past 540 days with a meds authorizing provider and meeting all other requirements Future Appointments Date Type Provider Dept 05/28/24 Appointment Jess Munson MD [facility] Showing future appointments within next 150 days with a meds authorizing provider and meeting all other requirements CT MAIL MARKETER Tiff Thomason RN [facility] 2024-03-17 14:15:48 Lanre Bales is a 28 year old female and the pt is calling to request another call from the PCP about the following medication phentermine-topiramate 3.75-23 mg per capsule Callback#:[phone] Please contact and advise. E Whitley [facility] 2024-03-16 02:32:09 Pt given printed and [...] with steady gait, in no apparent distress. [facility] 2024-03-16 02:16:26 Pt arrives ambulatory to ED c/o tooth pain that has been worsening over the last couple of days. E Trivedi RN [facility] 2024-03-10 09:40:47 Patient will call back later, she is going to call her insurance to check if Qysmia will be covered. Patient will call back later. [facility] Sabi Corrales MA [facility] 2024-03-10 09:02:20 Images from the original [...] by Jess Munson MD Provider Review Required Afegvf8803/10/2024 09:01 AM Protocol Details This refill cannot be delegated Valid encounter within last 12 months To be filled at: [address] 02-26-2023 [facility] 05-28-2024 [facility] Sabi Corrales MA [facility] 2024-03-10 09:01:24 Images from the original note were not included. [facility] 2024-03-08 10:27:35 Was phentermine topiramate covered [facility] 2024-03-07 08:57:47 Noted, routing to provider for review. E Corrales MA [facility] 2024-03-07 08:02:29 Images from the original note were not included. E Castillo [facility] 2024-03-06 09:29:10 Referral has been placed with OV notes attached. E Thomason RN [facility] 2024-03-05 15:54:06 Images from the original note were not included. E Castillo [facility] 2024-03-05 14:57:18 1. Class 3 severe [...] 5mg qWeek Dispense: 2 mL; Refill: 2 [facility] 2024-03-05 08:12:01 Can send the phentermine differently and topiramate differently [facility] 2024-03-04 14:44:11 Authorization completed, insurance will cover it. Datadog message sent to patient. Abbey Goel MA 03/04/2024 2:[address] MAIL MARKETER Abbey Goel MA [facility] 2024-03-04 14:23:22 Patient is requesting a prior authorization for phentermine-topiramate (QSYMIA) 3.75-23 mg per capsule E Escobedo [facility] 2024-03-03 16:59:33 PA was denied for this medication. Pt was notified. E Thomason RN [facility] 2024-03-03 11:11:56 Lanre Bales is a 28 year old female Alla with [employer] called and states that the submitted claim is not matching prior authorization. She is requesting for clinic to get with insurance to correct. Please advise. E Mcclain [facility] 2024-02-29 08:26:23 Medication not covered by insurance, will notify the provider to determine if other weight loss medications were discussed. Abbey Goel MA 02/29/2024 8:[address] MAIL MARKETER Abbey Goel MA [facility] 2024-02-28 16:38:02 Images from the original note were not included. [facility] 13:24:10 Medicine changed to qysmia [facility] 2024-02-28 08:35:57 Images from the original note were not included. E Castillo [facility] 2024-02-27 15:54:17 PA has been submitted via Cover Hung[employer] Local Meds with OV note attached, Datadog message sent to pt. E Thomason RN [facility] 2024-02-27 15:14:43 Patient is requesting a prior authorization for phentermine-topiramate (QSYMIA) 3.75-23 mg per capsule E Escobedo [facility] 2024-02-22 13:46:42 Images from the original note were not included. Results received from [facility] scanned in folder and placed in provider basket for review. E Malik [facility] 2024-02-22 02:57:27 Pt given printed and [...] encouraged to follow up with pcp & BREAST BUFFER. Advised to seek medical attention for new/prolonged/worsening of symptoms. No adverse reaction to meds given in ER noted upon discharge. PIV d'cd, dressing to site, catheter in tact. Awake, alert oriented, resp reg unlabored, skin w/d, pt leaving amb with steady gait, in no apparent distress. E Trivedi RN [facility] 2024-02-22 02:16:49 Ice chips given E Moody RN [facility] 2024-02-22 01:38:[address] Connected to blood pressure and pulse ox. Call light in reach. IV bolus infusing. [facility] 2024-02-22 00:45:05 Patient urinating, able to walk to bathroom independently E Duval RN [facility] 2024-02-22 00:29:[address] is waiting for urine to continue treatment. Pt stated she was on her period. Explained to pt that we hand to have a documented negative test to proceed with CT and her further cared is being delayed until we get urine. Pt verbalized understanding and said she would try in a few minutes. [facility] 2024-02-22 00:08:00 Patient states she does not need to urinate at this time and not wanting to try. [facility] 2024-02-21 23:49:50 Has had vomiting and diarrhea x 2 days. Has lap claire 3 weeks ago. C/O generalized abdominal pain. [facility] 2024-02-21 23:42:00 I personally examined the patient on 02/22/2024 and agree with Marisa's LOPEZ note with the following addition(s): CTAP-neg. Acute, known ovarian cyst . I actively participated in the decision-making process. Please see the Midlevel Provider's note for additional details. Curt Curry MD 02/22/24 0242 [facility] EMERGENCY PHYSICIAN STAFF [facility] 2024-02-21 08:15:34 Radiology report from [facility], will print & place on providers basket [facility] Bernarda Rudolph [facility] 2024-02-15 08:10:47 Please schedule follow up appointment for next Sunday [facility] 2024-02-14 08:54:37 Images from the original note were not included. Attempted to contact patient several times using the numbers on file and continue getting the busy signal. Code [employer] message sent at this time with providers recommendations. [facility] 2024-02-14 08:44:25 Closing this telephone encounter as this has been addressed in another telephone encounter 02/11/24. [facility] 2024-02-13 08:57:47 I previously recommended an evaluation [...] 02/13/2024 8:59 AM Colon and Rectal Surgery [facility] 2024-02-11 14:23:37 Patient returned call stating she is having a lot of pain, denies any fever, swelling, drainage from surgical sites. Patient had cholecystectomy on 01/29/24. Patient states she went to [facility] ER last night and had imaging and labs which showed no issues. Patient states she was informed she only needed to take 1 day off of work after her surgery. 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 Please call in scripts to [facility] in [place]. Please advise. E Perez RN [facility] 2024-02-11 13:16:52 Patient has been calling [...] ER r/t her pain and there are MyChart messages stating as such. Attempted to contact patient at [phone] and via her emergency contact [phone]. Have called both numbers several times, only get a busy signal for both numbers. Responded to MyChart messages requesting patient contact the office and informed patient via MyChart message that MyChart messages are not answered immediately and all urgent needs should be called to office. PSS please have staff address phone call RACHAEL if patient calls back. Thank you. E [facility] 2024-02-11 13:07:38 Patient has been calling [...] ER r/t her pain and there are MyChart messages stating as such. Attempted to contact patient at [phone] and via her emergency contact [phone]. Have called both numbers several times, only get a busy signal for both numbers. Responded to [employer] messages requesting patient contact the office and informed patient via MyChart message that MyChart messages are not answered immediately and all urgent needs should be called to office. PSS please have staff address phone call RACHAEL if patient calls back. Thank you. E Perez RN [facility] 2024-02-11 12:40:42 Images from the original [...] if pain is too much. Analgesics: NSAIDS Uuxzta2002/11/2024 12:28 PM Protocol Details Valid encounter within [...] (01/29/2024) by Eva Bryan MD Controlled Substance Izvqjx3502/11/2024 12:28 PM Protocol Details Valid encounter within last 3 months Pain agreement on file This refill cannot be delegated To be filled at: [facility] - [address] Last Refilled: 01/29/24 Recent Visits Date Type Provider Dept 01/03/24 Office Visit Jess Munson MD [facility] 11/19/23 Office Visit Jess Munson MD [facility] 08/06/23 Office Visit Jess Munson MD [facility] 01/24/23 Office Visit Jess Munson MD [facility] 12/25/22 Office Visit Jess Munson MD [facility] Showing recent visits within past 540 days with a meds authorizing provider and meeting all other requirements Future Appointments Date Type Provider Dept 02/27/24 Appointment Jess Munson MD [facility] Showing future appointments within next 150 days with a meds authorizing provider and meeting all other requirements CT MAIL MARKETER Dhara Corral MA [facility] 2024-02-08 16:24:36 Attempted to contact patient using both numbers on file and continue getting the busy signal. [facility] 2024-02-08 14:53:13 Images from the original note were not included. Attempted to contact patient using both numbers on file and continue to get the busy signal. [facility] 2024-02-08 14:39:49 Given severity of pain, and if having any associated symptoms, such as fever, inability to eat, nausea, vomiting, she should either come to clinic this afternoon to see Villafuerte or return to the ED for bloodwork and imaging. Charley Posadas MD 02/08/2024 2:42 PM Colon and Rectal Surgery [facility] CRS-COLON & RECTAL SURGERY STAFF [facility] 2024-02-08 14:27:41 Images from the original [...] symptoms continue to get worse. Please advise. [facility] 2024-02-08 14:24:06 Telephone encounter created 02/08/24 regarding patient's symptoms. [facility] 2024-02-08 13:26:14 Attempted to contact patient but continue to get busy signal. Will route to Dr Posadas for recommendations as Irvin LI CT MAIL MARKETER Debbie Frias RN [facility] 2024-02-08 11:46:35 Summary: Pain Medication Request s/p Lap Claire 01/28 I attempted to call pt to further access her symptoms and phone was busy. Unable to reach pt. I will try again over the phone and also respond to her Datadog message to get more information. E Wyman MA [facility] 2024-02-04 15:18:33 Patient notified. E Rolon RN [facility] 2024-02-04 14:39:44 She may resume phentermine 6 weeks following surgery [facility] 2024-01-31 08:09:22 Called number on file; no answer; message left to return call to clinic. E Rolon RN [facility] 2024-01-30 13:05:31 Pt had SX 01/28 and would like to know if she can resme taking Phentermine pilss. Please Assist CT MAIL MARKETER Frankie Magallanes [facility] 2024-01-28 09:50:30 Images from the original [...] ago (12/27/2023) by Jess Munson MD Off-Protocol Gexgro4501/25/2024 06:41 PM Protocol Details Medication not assigned to a protocol, forward to provider. Valid encounter within last 12 months zolpidem 5 mg tablet Sig: Take 1 tablet by mouth at bedtime as needed for Insomnia. Disp: 30 tablet Refills: 0 Start: 01/25/2024 Class: eRX PDMP Needs Review For: Primary insomnia Last ordered: 1 month ago (12/27/2023) by Jess Munson MD Provider Review Required Gyxhvk8501/25/2024 06:41 PM Protocol Details This refill cannot [...] in mornings before meds kick in. Anti-nausea Qddhda5901/25/2024 06:41 PM Protocol Details This refill cannot be delegated Manual Review: Women's Health providers only allowed to refill requests. Valid encounter within last 12 months To be filled at: [facility] [address] [place] [address] 01-03-2024 NOV 02-27-2024 CT MAIL MARKETER Sabi Corrales MA [facility] 2024-01-21 15:14:50 Images from the original note were not included. Your procedure is at [facility] on 01/29/24. The address is [address] [place] [address], [id number]. [facility] nursing staff will call you the workday [...] symptoms at this time, no testing required. CT MAIL MARKETER [facility] 2024-01-12 05:46:05 Awake, alert oriented X4, [...] ER noted upon discharge Pt taken to POV via wheelchair. [facility] Margot Amin RN [facility] 2024-01-12 04:56:14 Pt's boyfriend left phone # [phone] [facility] 2024-01-12 03:57:23 Patient arrived to ED c/o vomiting for two days. Hx of gallbladder issues. Sees Dr. Bryan. No medications taken VALUE ANALYSIS COORDINATOR. [facility] 2024-01-11 12:44:39 1. Nausea and vomiting, unspecified vomiting type To Defer to GI for further questions - ondansetron 8 mg tablet; Take 1 tablet by mouth every 8 (eight) hours as needed for Nausea and Vomiting (N/V). Dispense: 24 tablet; Refill: 0 [facility] 2024-01-10 16:32:15 Forwarding to provider. [facility] 2024-01-02 08:00:08 Images from the original note were not included. Medical record received from [facility] scanned in folder and placed in provider basket for review. E Malik [facility] 2023-12-25 13:55:45 Images from the original [...] ago (11/19/2023) by Jess Munson MD Off-Protocol Uionnj2912/25/2023 01:50 PM Protocol Details Medication not assigned to a protocol, forward to provider. Valid encounter within last 12 months zolpidem 5 mg tablet Sig: Take 1 tablet by mouth at bedtime as needed for Insomnia. Disp: 30 tablet Refills: 0 Start: 12/25/2023 Class: eRX PDMP Needs Review For: Primary insomnia Last ordered: 1 month ago (11/19/2023) by Jess Munson MD Provider Review Required Mixcdc4712/25/2023 01:50 PM Protocol Details This refill cannot be delegated Valid encounter within last 12 months To be filled at: [facility] [address] [place] [address] 11-19-2023 [facility] 02-27-2024 E Corrales MA [facility] 2023-12-25 10:29:31 Please review patients request for ondansetron 4 mg dissolvable tablet instead of the prescribed ondansetron 4 mg tablet. Please advise, thank you. E Duarte LVN [facility] 2023-12-18 11:14:17 Noted Abbey Goel MA 12/18/2023 11:14 AM Abbey Goel MA [facility] 2023-12-18 09:36:32 Pt opted for appt today Anaya Andrews [facility] 2023-12-18 09:30:12 Lanre Bales is a 28 year old female Calling in wanting to know if PCP can prescribe proMETHazine 25 mg tablet If not pt would like to be advised on what to do to manage symptoms before her endoscopy Please advise [facility] 2023-12-18 09:17:17 Pt is returning clinic call. Karina Mcclain [facility] 2023-12-17 10:33:58 Routing to provider for review as office has not sent in Rx before. Recent Visits Date Type Provider Dept 11/19/23 Office Visit Jess Munson MD [facility] 08/06/23 Office Visit Jess Munson MD [facility] 01/24/23 Office Visit Jess Munson MD [facility] 12/25/22 Office Visit Jess Munson MD [facility] Showing recent visits within past 540 days with a meds authorizing provider and meeting all other requirements Future Appointments Date Type Provider Dept 02/27/24 Appointment Jess Munson MD [facility] Showing future appointments within next 150 days with a meds authorizing provider and meeting all other requirements Tiff Thomason RN [facility] 2023-12-17 10:29:18 Pt states she is having a gastritis flare as of last night. Pt said she has vomited a few times. She would like a prescription sent in for nausea. She said she does not want to go to the ER because she has her son. Please Advise. [facility] [address] [place] [id number] [address] Ashraf [facility] 2023-12-11 14:03:58 Patient returned my call. [...] Pre op call complete. Jill Brown RN [facility] 2023-12-11 10:09:05 Left a message to [...] medications. Prep and medication instructions sent via Datadog & email: [email or web address] [facility] 2023-12-07 09:25:56 Images from the original [...] Ordoñez NP Last refill: 09/05/2023 Rx #: [id number] Psychiatry: Antidepressants Lvypbj8112/07/2023 12:36 AM Protocol Details Manual Review: Verify no changes in dose in the last 3 months Valid encounter within last 12 months To be filled at: [facility]/pharmacy #[id number] - [address] 11-19-2023 NOV 02-27-2024 Sabi Corrales MA [facility] 2023-11-19 10:30:00 Breath test [facility] 2023-11-19 10:30:00 Addended by: AYESHA LIANG on: 11/19/2023 02:54 PM Modules accepted: Orders Ayesha Liang [facility] 2023-11-19 08:13:22 Pt has scheduled appointment for 11/18. Rossana Malik [facility] 2023-11-18 18:46:30 1. Primary insomnia Update [...] with no significant benefit, will also discontinue. [facility] 2023-11-18 13:08:04 Patient given printed and [...] in no apparent distress. Tosha Duval RN [facility] 2023-11-18 07:19:14 [facility] ED Transfer of Care Note. Off-going [...] 1049) Results: Labs Reviewed COMP. METABOLIC PANEL (01466) - Abnormal; Notable for the following components: [...] to have appropriate medical decision making capability. BREAST BUFFER clinic referral placed. Disposition: Discharged Home Social Determinants of Health: None ED Disposition ED Disposition Disch - Home Condition Stable Comment -- T [facility] 2023-11-18 07:14:03 Patient report given to Crispin GALVAN [facility] 2023-11-18 05:26:10 Pt presents to ED with c/o vomiting 2 days. Pt states she also has pain in the top of her stomach. Pt rates pain 9/10 in abdomen No meds VALUE ANALYSIS COORDINATOR LMP: couple weeks ago. Lisha Spear RN [facility] 2023-11-18 05:21:00 [facility] Emergency Department Note Patient Name: Lanre Bales Date of : 1995 28 year old female Treatment Room: PA5/[facility] Primary Care Physician: Jess Munson Patient Escorted by: Family [5] Mode of Arrival: Personal means [1] EMS Treatment Prior to ED Arrival: VALUE ANALYSIS COORDINATOR treatment: None Travel and Exposure Screening: Symptoms [...] provided by: Significant other and patient manager retention used: No Abdominal Pain Pain location: Epigastric [...] Lab Results: Lab Results COMP. METABOLIC PANEL (48628) - Abnormal Result Value Ref Range NA [...] ED Events Date/Time Event User Comments 11/18/23 0558 Medical Screening Begins CARO BAUER MD -- [...] signed by: Caro Bauer MD 11/18/23 0737 [facility] 2023-11-16 14:03:54 Images from the original note were not included. Requested Renewals zolpidem 5 mg tablet Sig: Take 1 tablet by mouth at bedtime as needed for Insomnia. Disp: 30 tablet Refills: 0 Start: 11/16/2023 Class: eRX For: Primary insomnia Last ordered: 4 weeks ago (10/19/2023) by Jess Munson MD Provider Review Required Wdlrem7311/16/2023 01:53 PM Protocol Details This refill cannot be delegated Valid encounter within last 12 months To be filled at: [facility]/pharmacy #[id number] 08-06-2023 NOV N/A Sabi Corrales MA [facility] 2023-11-16 14:03:07 Images from the original [...] ago (10/16/2023) by Jess Munson MD Off-Protocol Bxxvxs0311/16/2023 01:48 PM Protocol Details Medication not assigned to a protocol, forward to provider. Valid encounter within last 12 months To be filled at: [facility] [address] [place] [address] 08-06-2023 NOV N/A Sabi Corrales MA [facility] 2023-11-16 13:49:19 Patient requesting a refill of:zolpidem Medication: zolpidem Dose: 5 mg Route: refill Quantity: 30 Pharmacy: [address] [address] Last appt.: 08/05 Next appt.: na Would like to speak with clinic about getting this done today T [facility] 2023-11-16 13:46:24 Lanre Bales is a 28 year old female is calling to get an update on refill request. Pt wants this sent today T Petty Valdivia [facility] 2023-11-15 11:34:30 Images from the original [...] ago (10/16/2023) by Jess Munson MD Off-Protocol Qpoysx8511/15/2023 11:02 AM Protocol Details Medication not assigned to a protocol, forward to provider. Valid encounter within last 12 months To be filled at: [facility] - [place], [place] - [address] Last Refilled: 10/16/23 Recent Visits Date Type Provider Dept 08/06/23 Office Visit Jess Munson MD [facility] 01/24/23 Office Visit Jess Munson MD [facility] 12/25/22 Office Visit Jess Munson MD [facility] Showing recent visits within past 540 days with a meds authorizing provider and meeting all other requirements Future Appointments No visits were found meeting these conditions. Showing future appointments within next 150 days with a meds authorizing provider and meeting all other requirements Dhara Corral MA [facility] 2023-11-08 15:30:00 DC instructions and prescription for Zofran ODT reviewed with patient. She will fill prescription and take as directed. She will follow up with her PCP in 3-5 days as instructed. She will return to the ED if her symptoms persist or worsen. She was Dc'd ambulatory-alert and in no distress [facility] 2023-11-08 13:02:16 Report received and care assumed. [facility] 2023-11-08 12:50:54 Nurse Report Report given to COLE Miranda. Chief complaint, assessment findings, infusion verify and orders reviewed. Plan of care discussed with both nurses. Judy Marroquin RN uJdy Marroquin RN [facility] 2023-11-08 10:15:50 Vomiting x3 days. Lucille Lester RN [facility] 2023-10-18 13:34:30 Images from the original note were not included. Notes: Patient requesting refill, please review. Abbey Goel MA 10/18/2023 1:35 PM Last Refilled: 09/13/23 Recent Visits Date Type Provider Dept 08/06/23 Office Visit Jess Munson MD [facility] 01/24/23 Office Visit Jess Munson MD [facility] 12/25/22 Office Visit Jess Munson MD [facility] Showing recent visits within [...] by Jess Munson MD Provider Review Required Yrzrte3410/18/2023 12:27 PM Protocol Details This refill cannot be delegated Valid encounter within last 12 months To be filled at: [facility] [address] [place] [address] Abbey Goel MA [facility] 2023-10-18 12:25:18 Lanre Bales is a 28 year old female and pt is calling back to check on her refill request. Would like to know when it will be refilled please advise. zolpidem 5 mg tablet [facility] [address] [place] [id number] [facility] 2023-10-16 13:12:14 Images from the original note were not included. Requested Renewals zolpidem 5 mg tablet Sig: Take 1 tablet by mouth at bedtime as needed for Insomnia. Disp: 30 tablet Refills: 0 Start: 10/16/2023 Class: eRX For: Primary insomnia Last ordered: 1 month ago (09/13/2023) by Jess Munson MD Provider Review Required Ebugdu4410/16/2023 12:10 PM Protocol Details This refill cannot be delegated Valid encounter within last 12 months To be filled at: [facility] [address] [place] [address] 08-06-2023 NOV N/A Sabi Corrales MA [facility] 2023-10-15 13:12:38 Images from the original [...] ago (09/13/2023) by Jess Munson MD Off-Protocol Rtycqw5710/15/2023 01:05 PM Protocol Details Medication not assigned [...] ago (10/03/2023) by Jess Munson MD Off-Protocol Kmuywp6310/15/2023 01:05 PM Protocol Details Medication not assigned to a protocol, forward to provider. Valid encounter within last 12 months To be filled at: [facility] [address] [place] [address] 08-06-2023 NOV N/A Sabi Corrales MA [facility] 2023-10-02 08:26:45 Images from the original note were not included. Last OV:01/24/23 with Jess Munson MD Last Refill:12/26/22 prescribed by Jess Munson MD Last Labs Pertaining to Med:08/06/2023 Future Appt: Future Appointments Provider Department Dept Phone 2023 9:40 AM Jess Munson MD [facility] [phone] Requested Renewals ergocalciferol, vitamin d2, (VITAMIN D2) 1,250 mcg (50,000 unit) capsule Sig: Take 1 capsule by mouth weekly. Disp: 12 capsule Refills: 0 Start: 10/01/2023 Class: eRX For: Vitamin D deficiency Last ordered: 9 months ago (12/26/2022) by Jess Munson MD Off-Protocol Rxbqdj1210/01/2023 08:53 PM Protocol Details Medication not assigned to a protocol, forward to provider. Valid encounter within last 12 months To be filled at: [facility]/pharmacy #[id number] Abbey Goel MA [facility] 2023-09-13 08:20:32 Images from the original [...] ago (08/06/2023) by Jess Munson MD Off-Protocol Cvicyv2509/12/2023 06:49 PM Protocol Details Medication not assigned to a protocol, forward to provider. Valid encounter within last 12 months zolpidem 5 mg tablet Sig: Take 1 tablet by mouth at bedtime as needed for Insomnia. Disp: 30 tablet Refills: 0 Start: 09/12/2023 Class: eRX For: Primary insomnia Last ordered: 1 month ago (08/06/2023) by Jess Munson MD Provider Review Required Wrcmuf5709/12/2023 06:49 PM Protocol Details This refill cannot be delegated Valid encounter within last 12 months To be filled at: [address] 08-06-2023 NOV N/A Sabi Corrales MA [facility] 2023-08-06 14:30:00 Images from the original note were not included. Venipuncture collection performed by clean technique on the right anticubitus. Total of 1 attempts were made. Slight pressure and a bandage/dressing were applied to the site(s). The patient experienced no complications. The following specimens were processed according to instructions and sent to [facility] laboratories per lab order on 08/06/2023 : LT BLUE SST 2 RED LAV 2 PPT DK GREEN (LiHep) 1 DK GREEN (SodH) HART DK BLUE (K2) 1 DK BLUE (S) ACD [facility] 2023-[facility] 12:29:00 Attempted to reach patient to schedule with ASSEMBLER [employer]per [place]. Elin Trivedi [facility] 2023-07-31 18:24:47 You can schedule an appointment with me in person and we can review other options. Dr. Dias is out of office till next week. [facility] 2023-07-31 16:57:43 Images from the original [...] lifestyle changes to get best results Off-Protocol Xykfjz9807/31/2023 02:47 PM Protocol Details Medication not assigned to a protocol, forward to provider. Valid encounter within last 12 months To be filled at: [facility] [address] Last Refilled: 05/29/2023 Recent Visits Date Type Provider Dept 01/24/23 Office Visit Jess Munson MD [facility] 12/25/22 Office Visit Jess Munson MD [facility] Showing recent visits within past 540 days with a meds authorizing provider and meeting all other requirements Future Appointments Date Type Provider Dept 08/13/23 Appointment Jess Munson MD [facility] Showing future appointments within next 150 days with a meds authorizing provider and meeting all other requirements Dhara Corral MA [facility] 2023-07-25 08:53:56 Images from the original note were not included. Requested Renewals traZODone 100 mg tablet Sig: Take 1 tablet by mouth at bedtime. Disp: 90 tablet Refills: 0 Start: 07/25/2023 Class: eRX Non-formulary For: Primary insomnia Last ordered: 3 months ago (04/23/2023) by Jess Munson MD Psychiatry: Antidepressants Djrmdc5707/25/2023 08:38 AM Protocol Details Manual Review: Verify no changes in dose in the last 3 months Valid encounter within last 12 months To be filled at: [facility]/pharmacy #[id number] 01-24-2023 NOV N/A Sabi Corrales MA [facility] 2023-07-25 08:38:07 Images from the original note were not included. [facility] 2023-06-21 12:29:19 Patient dc home. Follow up with pcp. Verbalized understanding. Prosper Segovia RN [facility] 2023-06-21 11:23:37 Pt arrived via private car with c/o dysuria x3 days Kelly Rolon RN [facility] 2023-06-21 11:14:00 [facility] Emergency Department Note Patient Name: Lanre [...] signed by: Bonita Trivedi DO 06/21/23 1216 [facility] 2023-06-12 14:39:19 Call placed to pt to discuss MyChart message. Tiff Thomason RN [facility] 2023-05-29 14:42:38 Images from the original [...] ago (04/12/2023) by Jess Munson MD Off-Protocol Hrhbuw2805/29/2023 02:20 PM Protocol Details Medication not assigned to a protocol, forward to provider. Valid encounter within last 12 months To be filled at: [address] Last Refilled: 04/12/23 Recent Visits Date Type Provider Dept 01/24/23 Office Visit Jess Munson MD [facility] 12/25/22 Office Visit Jess Munson MD [facility] Showing recent visits within past 540 days with a meds authorizing provider and meeting all other requirements Future Appointments Date Type Provider Dept 06/06/23 Appointment Jess Munson MD [facility] Showing future appointments within next 150 days with a meds authorizing provider and meeting all other requirements Dhara Corral MA [facility] 2023-04-23 10:14:44 Images from the original note were not included. Routed to provider for review. Unable to refill per ambulatory refill guidelines. Notes: traZODone 100 mg tablet Sig: Take 1 tablet by mouth at bedtime. Disp: 90 tablet Refills: 0 Start: 04/23/2023 Class: eRX Non-formulary For: Primary insomnia Last ordered: 2 months ago (01/24/2023) by Jess Munson MD Psychiatry: Antidepressants Nrjnto9904/23/2023 09:19 AM Protocol Details Manual Review: Verify no changes in dose in the last 3 months Valid encounter within last 12 months To be filled at: [facility]/pharmacy #[id number] - [place], [place] - [address] [place] [address] AT [facility] Last Refilled: 01/24/2023 Recent Visits Date Type Provider Dept 01/24/23 Office Visit Jess Munson MD [facility] 12/25/22 Office Visit Jess Munson MD [facility] Showing recent visits within past 540 days with a meds authorizing provider and meeting all other requirements Future Appointments Date Type Provider Dept 04/25/23 Appointment Jess Munson MD [facility] Showing future appointments within next 150 days with a meds authorizing provider and meeting all other requirements E Corral MA [facility] 2023-04-13 17:36:40 Refill request approved after communication with patient via [employer] CT MAIL MARKETER Melissa Jimenez RN [facility] 2023-04-11 15:07:24 Images from the original [...] ago (03/02/2023) by Jess Munson MD Off-Protocol Xtnpkw0804/11/2023 02:55 PM Protocol Details Medication not assigned to a protocol, forward to provider. Valid encounter within last 12 months To be filled at: [facility] [address] [place] [address] [address] 01-24-2023 [facility] 04-25-[address] CT MAIL MARKETER Sabi Corrales MA [facility] 2023-04-02 12:51:41 Images from the original note were not included. Last OV: 01/24/2023 with Jess Munson Last Refill: 02/20/2023 prescribed by Jess Munson Last Labs Pertaining to Med: N/A Future Appt: Future Appointments Provider Department Dept Phone 04/25/2023 3:00 PM Jess Munson MD [facility] [place] [phone] Routed to provider for review. Unable to refill per ambulatory refill guidelines. zolpidem 5 mg tablet Sig: Take 1 tablet by mouth at bedtime as needed for Insomnia. Disp: 30 tablet Refills: 0 Start: 04/01/2023 Class: eRX For: Primary insomnia Last ordered: 1 month ago (02/20/2023) by Jess Munson MD Provider Review Required Ipbtjh0404/01/2023 01:01 PM Protocol Details This refill cannot be delegated Valid encounter within last [address] MAIL MARKETER Melissa Jimenez RN [facility] 2023-03-02 13:44:04 Images from the original [...] ago (01/26/2023) by Jess Munson MD Off-Protocol Odjvqf7903/02/2023 01:27 PM Protocol Details Medication not assigned to a protocol, forward to provider. Valid encounter within last 12 months To be filled at: [facility] [address] [place] [address] 01-24-2023 NOV 04-25-2023 CT MAIL MARKETER Sabi Corrales MA [facility] 2023-02-19 20:36:52 Images from the original note were not included. Last OV: 01/24/2023 with Jess Munson Last Refill: 01/16/2023 prescribed by Jess Munson Last Labs Pertaining to Med: N/A Future Appt: Future Appointments Provider Department Dept Phone 04/25/2023 3:00 PM Jess Munson MD [facility] [place] [phone] Routed to provider for review. Unable to refill per ambulatory refill guidelines. zolpidem 5 mg tablet Sig: Take 1 tablet by mouth at bedtime as needed for Insomnia. Disp: 30 tablet Refills: 0 Start: 02/19/2023 Class: eRX For: Primary insomnia Last ordered: 1 month ago (01/16/2023) by Jess Munson MD Provider Review Required Cotdyg2802/19/2023 03:32 PM Protocol Details This refill cannot be delegated Valid encounter within last [address] MAIL MARKETER Melissa Jimenez RN [facility]
[2024-04-18] MEDS ORDERED: ONDANSETRON 4 MG/2 ML VIAL ONE (07:03)
[2024-04-18] MEDS ORDERED: FAMOTIDINE 20 MG/2 ML VIAL IV ONE (07:03)
[2024-04-18] MEDS ORDERED: NA CHLORIDE 0.9% 1,000 ML ONE (07:03)
[2024-04-18 07:13] LABS: Absolute Eosinophils 0.2 K/uL (0-0.5); Absolute Lymphocytes (CBC) 1.9 K/uL (0.7-4.9); Absolute Monocytes 0.5 K/uL (0.1-1.3); Absolute Neutrophil 4.9 K/uL (1.8-8.0); Basophils % 0.3 % (0-1.3); Eosinophils % 2.8 % (0-4.4); Hematocrit 42.4 % (36.0-45.0); Hemoglobin 14.4 g/dL (12.0-15.0); Lymphocytes % 25.7 % (15.3-44.8); MCH 34.9 pg (27.0-35.0); MCHC 33.8 g/dL (32.0-36.0); MCV 103.1 fL (80-100); MPV 6.9 fL (7.6-11.3); Monocytes % 6.8 % (3.3-12.3); Neutrophils % 64.4 % (41.7-73.7); Nucleated Red Blood Cells % 0.1 % (0-0); Platelets 337 thou/uL (152-406); RBC Red Blood Cell Count 4.11 M/uL (3.86-4.86); Red Cell Distribution Width 13.9 % (12.1-15.2)
[2024-04-18 07:25] LABS: Albumin 3.4 g/dL (3.4-5.0); Albumin/Globulin Ratio 0.9 (1.1-1.8); Anion Gap 8.4 mEq/L (5.0-15.0); Bilirubin Total 0.5 mg/dL (0.2-1.0); Globulin 3.9 g/dL (2.3-3.5); Potassium 3.4 mEq/L (3.5-5.1); Protein, Total 7.3 g/dL (6.4-8.2)
[2024-04-18 07:58] LABS: Specific Gravity 1.024 (1.005-1.030); Sqamous Epithelial 20-50 /HPF (None Seen); Urine Bacteria <20 /HPF (<20); Urine Bilirubin NEGATIVE (Negative); Urine Blood Trace (Negative); Urine Clarity Extremely Turbid (Clear); Urine Color Yellow (Yellow); Urine Culture Reflex Order NOT NEEDED; Urine Glucose NEGATIVE (Negative); Urine Ketones NEGATIVE (Negative); Urine Microscopic Reflex YN ORDER UMIC; Urine Mucus 2+ /HPF (None Seen); Urine Nitrite NEGATIVE (Negative); Urine Protein TRACE (Negative); Urine Urobilinogen 2+ (Normal); Urine WBC <5 /HPF (<5)
[2024-04-18 07:59] LABS: Specific Gravity 1.024 (1.005-1.030)
--- NOTE | 2024-04-18 08:30 | EDPHYS ---
Physician Documentation [facility] Name: Robin Bernard Age: 28 yrs Sex: Female : 1995 Arrival Date: 04/18/2024 Time: 06:31 Bed 5 Private MD: ED Physician Jean Carlos Dias HPI: 04/18 07:19 This 28 yrs old Black Female presents to ER via Ambulatory with complaints of ashok Nausea/Vomiting/Diarrhea, Abdominal Pain. 07:19 The patient presents to the emergency department with nausea, vomiting, diarrhea, ashok abdominal pain, described as crampy. Onset: The symptoms/episode began/occurred 1 day(s) ago. Possible causes: unknown. The symptoms are aggravated by nothing. The symptoms are alleviated by nothing. Associated signs and symptoms: Pertinent positives: nausea, vomiting. Severity of symptoms: in the emergency department the symptoms have improved mildly. The patient has not experienced similar symptoms in the past. 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 Flu vaccine is up to date. - Infectious Disease History:: Denies. - Social history:: Smoking status: Patient denies any tobacco usage or history of. - Family history:: not pertinent. ROS: 07:19 Constitutional: Negative for fever, chills, and weight loss, Eyes: Negative for injury, ashok pain, redness, and discharge, ENT: Negative for injury, pain, and discharge, Neck: Negative for injury, pain, and swelling, Cardiovascular: Negative for chest pain, palpitations, and edema, Respiratory: Negative for shortness of breath, cough, wheezing, and pleuritic chest pain, Back: Negative for injury and pain, : Negative for injury, bleeding, discharge, and swelling, MS/Extremity: Negative for injury and deformity, Skin: Negative for injury, rash, and discoloration, Neuro: Negative for headache, weakness, numbness, tingling, and seizure, Psych: Negative for depression, anxiety, suicide ideation, homicidal ideation, and hallucinations, Allergy/Immunology: Negative for hives, rash, and allergies, Endocrine: Negative for neck swelling, polydipsia, polyuria, polyphagia, and marked weight changes, Hematologic/Lymphatic: Negative for swollen nodes, abnormal bleeding, and unusual bruising, 07:19 Abdomen/GI: Positive for abdominal pain, nausea and vomiting, diarrhea, Exam: 07:19 Constitutional: This is a well developed, well nourished patient who is awake, alert, ashok and in no acute distress. Head/Face: Normocephalic, atraumatic. Eyes: Pupils equal round and reactive to light, extra-ocular motions intact. Lids and lashes normal. Conjunctiva and sclera are non-icteric and not injected. Cornea within normal limits. Periorbital areas with no swelling, redness, or edema. ENT: Nares patent. No nasal discharge, no septal abnormalities noted. Tympanic membranes are normal and external auditory canals are clear. Oropharynx with no redness, swelling, or masses, exudates, or evidence of obstruction, uvula midline. Mucous membranes moist. Neck: Trachea midline, no thyromegaly or masses palpated, and no cervical lymphadenopathy. Supple, full range of motion without nuchal rigidity, or vertebral point tenderness. No Meningismus. Chest/axilla: Normal chest wall appearance and motion. Nontender with no deformity. No lesions are appreciated. Cardiovascular: Regular rate and rhythm with a normal S1 and S2. No gallops, murmurs, or rubs. Normal PMI, no JVD. No pulse deficits. Respiratory: Lungs have equal breath sounds bilaterally, clear to auscultation and percussion. No rales, rhonchi or wheezes noted. No increased work of breathing, no retractions or nasal flaring. Abdomen/GI: Soft, non-tender, with normal bowel sounds. No distension or tympany. No guarding or rebound. No evidence of tenderness throughout. Back: No spinal tenderness. No costovertebral tenderness. Full range of motion. Skin: Warm, dry with normal turgor. Normal color with no rashes, no lesions, and no evidence of cellulitis. MS/ Extremity: Pulses equal, no cyanosis. Neurovascular intact. Full, normal range of motion., bilateral aka Neuro: Awake and alert, GCS 15, oriented to person, place, time, and situation. Cranial nerves II-XII grossly intact. Motor strength 5/5 in all extremities. Sensory grossly intact. Cerebellar exam normal. Normal gait. Psych: Awake, alert, with orientation to person, place and time. Behavior, mood, and affect are within normal limits. Vital Signs: 06:54 BP 123 / 85; Pulse 93; Resp 16; Temp 97.9(O); Pulse Ox 99% on R/A; Weight 111.13 kg; dd2 Height 5 ft. 5 in. ; Pain 8/10; 08:30 BP 121 / 81; Pulse 88; Resp 17; Pulse Ox 99% ; ll1 06:54 Body Mass Index 40.77 (111.13 kg, 165.1 cm) dd2 06:54 Pain Scale: Adult dd2 [place] Coma Score: 07:00 Eye Response: spontaneous(4). Motor Response: obeys commands(6). Verbal Response: dd2 oriented(5). Total: 15. MDM: 07:09 Medical Screening Exam initiated ashok 07:21 Differential diagnosis: Nonspecific abd pain, gastritis, cholecystitis, pancreatitis, ashok appendicitis, diverticulitis, viral gastroenteritis, gastroenteritis. Data reviewed: vital signs, nurses notes, lab test result(s). Consideration of Admission/Observation Patient was admitted/placed on observation. Escalation of care including admission/observation considered. I considered the following discharge prescriptions or medication management in the emergency department Medications were administered in the Emergency Department. See MAR. Test considered but Not performed: CT: no ct abd pel. Historians other than the Patient: pt well informed. Care significantly affected by the following chronic conditions: Obesity, gastritis. 04/18 06:54 Order name: CBC with Diff; Complete Time: 07:17 sp4 04/18 06:54 Order name: CMP; Complete Time: 08:28 sp4 04/18 06:54 Order name: Lipase; Complete Time: 08:28 sp4 04/18 06:54 Order name: Test, Urine; Complete Time: 08:28 sp4 04/18 06:54 Order name: Urinalysis w/ reflexes; Complete Time: 08:28 sp4 04/18 06:58 Order name: Test, Serum; Complete Time: 08:28 bm8 04/18 08:30 Order name: Urine Culture [facility] 04/18 06:54 Order name: IV Saline Lock; Complete Time: 06:59 sp4 04/18 06:54 Order name: Labs collected and sent; Complete Time: 06:59 sp4 04/18 08:30 Order name: PO challenge: juice; Complete Time: 08:41 ashok Administered Medications: 07:10 Drug: Famotidine IVP 20 mg IVP once; dilute with 10 mL 0.9% NaCl; give over 2 minutes ll1 Route: IVP; Site: right antecubital; 08:57 Follow up: Response: No adverse reaction ll1 07:10 Drug: Ondansetron IVP 8 mg IVP once; over 2 minutes Route: IVP; Site: right antecubital;ll1 08:57 Follow up: Response: No adverse reaction; Nausea is decreased ll1 07:10 Drug: NS 0.9% IV 1000 ml IV at 1 bolus Per protocol; to be given as a bolus over 60 ll1 minutes Route: IV; Rate: 1 bolus; Site: right antecubital; 08:57 Follow up: Response: No adverse reaction; IV Status: Completed infusion; IV Intake: ll1 950ml 08:41 Drug: GI Cocktail without - (Maalox PO 30 ml, Lidocaine Mucous Membrane 2 % 15 ll1 ml) PO once Route: PO; 08:42 Follow up: Response: No adverse reaction ll1 08:41 Drug: Rocephin IV 1 grams IV at per protocol once; Given slow IV push per pharmacy ll1 instructions Route: IV; Rate: per protocol; Site: right antecubital; 08:42 Follow up: Response: No adverse reaction; IV Status: Completed infusion; IV Intake: 12aznm2 08:41 Drug: Ciprofloxacin PO 500 mg PO once Route: PO; ll1 08:42 Follow up: Response: No adverse reaction ll1 08:42 Not Given (left before getting it): [id number] mg PO once ll1 Disposition Summary: 04/18/24 08:30 Discharge Ordered Notes: Location: Home ashok Problem: new ashok Symptoms: have improved ashok Condition: Stable ashok Diagnosis - Nausea with vomiting, unspecified ashok - Diarrhea, unspecified ashok - Abdominal pain, unspecified ashok - UTI/ Urinary tract infection, site not specified ashok - Hypokalemia ashok Followup: ashok - With: Private Physician - When: 2 - 3 days - Reason: Recheck today's complaints, Continuance of care, Re-evaluation by your physician Discharge Instructions: - Discharge Summary Sheet ashok - Abdominal Pain, Adult ashok - Food Choices to Help Relieve Diarrhea, Adult ashok - Diarrhea, Adult ashok - Potassium Content of Foods ashok - Nausea and Vomiting, Adult ashok - Nausea, Adult ashok - Urinary Tract Infection, Adult ashok - Urinary Tract Infection, Adult, Pihe-qn-Arnz ashok - Hypokalemia [facility] Forms: - Medication Reconciliation Form ashok - Antibiotic Education ashok - Prescription Opioid Use ashok - Patient Portal Instructions [facility] - Leadership Thank You Letter [facility] Prescriptions: - ondansetron 4 mg Oral Tablet,disintegrating - take 1 tablet ORAL route every 6-8 hours for 5 days; 20 tablet; Refills: 0, [facility] Product Selection Permitted - Cipro 250 mg Oral tablet - take 1 tablet ORAL route every 12 hours; 14 tablet; Refills: 0, Product [facility] Selection Permitted - Pepcid 20 mg Oral tablet - take 1 tablet ORAL route every 12 hours for 21 days; 42 tablet; Refills: 0, [facility] Product Selection Permitted - Pyridium 200 mg Oral tablet - take 1 tablet ORAL route every 8 hours for 2 days; 6 tablet; Refills: 0, [facility] Product Selection Permitted - dicyclomine 20 mg Oral tablet - take 1 tablet ORAL route 4 times per day; 28 tablet; Refills: 0, Product [facility] Selection Permitted Signatures: Dispatcher [employer] EDMS Jean Carlos Dias MD MD cha Lewis, Lynsay, RN RN ll1 Gwyn Cain MD MD sp4 MATI ZUÑIGA RN RN dd2 Corrections: (The following items were deleted from the chart) 06:55 06:55 CBC+H.LAB.BRZ ordered. EDMS EDMS 06:55 06:55 COMPREHENSIVE METABOLIC PANEL+C.LAB.BRZ ordered. EDMS EDMS 06:55 06:55 LIPASE+C.LAB.BRZ ordered. EDMS EDMS 06:55 06:55 Test, Urine+UC.LAB.BRZ ordered. EDMS EDMS 06:55 06:55 Urinalysis+U.LAB.BRZ ordered. EDMS EDMS
--- NOTE | 2024-04-18 08:30 | ER ---
Nurse's Notes [facility] Name: Robin Bernard Age: 28 yrs Sex: Female : 1995 Arrival Date: 04/18/2024 Time: 06:31 Bed 5 Private MD: Diagnosis: Nausea with vomiting, unspecified;Diarrhea, unspecified;Abdominal pain, unspecified;UTI/ Urinary tract infection, site not specified;Hypokalemia Presentation: 04/18 06:54 Chief complaint: Patient states: UPPER STOMACH PAIN AND R LOWER STOMACH PAIN WITH N/V dd2 AND PAIN WITH URINATION X1 DAY. Coronavirus screen: At this time, the client does not indicate any symptoms associated with coronavirus-19. Ebola Screen: No symptoms or risks identified at this time. Initial Sepsis Screen: Does the patient meet any 2 criteria? No. Patient's initial sepsis screen is negative. Does the patient have a suspected source of infection? No. Patient's initial sepsis screen is negative. Risk Assessment: Do you want to hurt yourself or someone else? Patient reports no desire to harm self or others. Onset of symptoms was April 17, 2024. 06:54 Method Of Arrival: Ambulatory dd2 06:54 Acuity: BOZENA 3 dd2 Triage Assessment: 06:57 General: Appears in no apparent distress. uncomfortable, Behavior is calm, cooperative, dd2 appropriate for age. Pain: Complains of pain in suprapubic area, right upper quadrant, left upper quadrant and right lower quadrant Pain does not radiate. EENT: No deficits noted. No signs and/or symptoms were reported regarding the EENT system. Neuro: No deficits noted. [place] Agitation-Sedation Scale (RASS): 0 - Alert and Calm Level of Consciousness is awake, alert, obeys commands, confused, Oriented to person, place, time, situation, Appropriate for age. Cardiovascular: No deficits noted. Respiratory: No deficits noted. Airway is patent Respiratory effort is even, unlabored, Respiratory pattern is regular, symmetrical. GI: Abdomen is non-distended, obese, Abd is soft X 4 quads Abdomen is tender to palpation in right lower quadrant Reports lower abdominal pain, upper abdominal pain, nausea, vomiting. : Reports burning with urination, pain in right in bilateral upper quadrant(s) lower quadrant(s) with urination. Derm: No deficits noted. No signs and/or symptoms reported regarding the dermatologic system. Musculoskeletal: No deficits noted. No signs and/or symptoms reported regarding the musculoskeletal system. Circulation, motion, and sensation intact. Range of motion: intact in all extremities. 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 Flu vaccine is up to date. - Infectious Disease History:: Denies. - Social history:: Smoking status: Patient denies any tobacco usage or history of. - Family history:: not pertinent. Screenin:00 Abuse screen: Denies threats or abuse. Denies injuries from another. Nutritional dd2 screening: No deficits noted. Tuberculosis screening: No symptoms or risk factors identified. 07:00 [facility] ED Fall Risk Assessment (Adult) History of falling in the last 3 months, dd2 including since admission No falls in past 3 months (0 pts) Confusion or Disorientation No (0 pts) Intoxicated or Sedated No (0 pts) Impaired Gait No (0 pts) Mobility Assist Device Used No (0 pt) Altered Elimination No (0 pt) Score/Fall Risk Level 0 - 2 = Low Risk Oriented to surroundings, Maintained a safe environment, Educated pt \T\ family on fall prevention, incl call for assistance when getting out of bed, Assessed \T\ reinforced patient's understanding of fall precautions, Hourly rounding (assess needs \T\ fall precautionary measures) done. Assessment: 07:00 Reassessment: SEE TRIAGE ASSESSMENT FOR FULL ASSESSMENT. dd2 07:11 General: Appears in no apparent distress. Behavior is calm, cooperative, appropriate ll1 for age. GI: Reports lower abdominal pain, upper abdominal pain, cramping, diarrhea, nausea, vomiting. 07:40 Reassessment: Would like to talk to , Dr. Dias informed. ll1 07:43 Reassessment: No changes from previously documented assessment. Patient and/or family ll1 updated on plan of care and expected duration. Pain level reassessed. Patient is alert, oriented x 3, equal unlabored respirations, skin warm/dry/pink. 08:20 Reassessment: No changes from previously documented assessment. Patient and/or family ll1 updated on plan of care and expected duration. Pain level reassessed. Wanting to talk to Dr. Dias about her abdominal pain. Vital Signs: 06:54 BP 123 / 85; Pulse 93; Resp 16; Temp 97.9(O); Pulse Ox 99% on R/A; Weight 111.13 kg; dd2 Height 5 ft. 5 in. ; Pain 8/10; 08:30 BP 121 / 81; Pulse 88; Resp 17; Pulse Ox 99% ; ll1 06:54 Body Mass Index 40.77 (111.13 kg, 165.1 cm) dd2 06:54 Pain Scale: Adult dd2 [place] Coma Score: 07:00 Eye Response: spontaneous(4). Motor Response: obeys commands(6). Verbal Response: dd2 oriented(5). Total: 15. ED Course: 06:32 Patient arrived in ED. [id number] 06:48 Gerard Feliciano, RN is Primary Nurse. bm8 06:57 Triage completed. dd2 06:57 Arm band placed on right wrist. Patient placed in an exam room, on a stretcher, on dd2 pulse oximetry. 07:00 Patient has correct armband on for positive identification. Bed in low position. Call dd2 light in reach. Side rails up X 1. Client placed on continuous cardiac and pulse oximetry monitoring. NIBP monitoring applied. Door closed. Noise minimized. Warm blanket given. Pillow given. Verbal reassurance given. 07:00 No provider procedures requiring assistance completed. Inserted saline lock: 20 gauge dd2 in right antecubital area, using aseptic technique. Blood collected. Flushed with 10 mL NS. Patient maintains SpO2 saturation greater than 95% on room air. 07:09 Jean Carlos Dias MD is Attending Physician. [facility] 07:10 Provided Education on: ER procedures and process. ll1 07:11 Primary Nurse role handed off by Gerard Feliciano, RN ll1 07:11 Inocencio Love RN is Primary Nurse. ll1 07:38 Urine collected: clean catch specimen, clear, Amount Voided: 300mL. Urinalysis w/ ll1 reflexes Sent, Test, Urine Sent. 08:42 IV discontinued, intact, bleeding controlled, No redness/swelling at site. Pressure ll1 dressing applied. Administered Medications: 07:10 Drug: Famotidine IVP 20 mg IVP once; dilute with 10 mL 0.9% NaCl; give over 2 minutes ll1 Route: IVP; Site: right antecubital; 08:57 Follow up: Response: No adverse reaction ll1 07:10 Drug: Ondansetron IVP 8 mg IVP once; over 2 minutes Route: IVP; Site: right antecubital;ll1 08:57 Follow up: Response: No adverse reaction; Nausea is decreased ll1 07:10 Drug: NS 0.9% IV 1000 ml IV at 1 bolus Per protocol; to be given as a bolus over 60 ll1 minutes Route: IV; Rate: 1 bolus; Site: right antecubital; 08:57 Follow up: Response: No adverse reaction; IV Status: Completed infusion; IV Intake: ll1 950ml 08:41 Drug: GI Cocktail without - (Maalox PO 30 ml, Lidocaine Mucous Membrane 2 % 15 ll1 ml) PO once Route: PO; 08:42 Follow up: Response: No adverse reaction ll1 08:41 Drug: Rocephin IV 1 grams IV at per protocol once; Given slow IV push per pharmacy ll1 instructions Route: IV; Rate: per protocol; Site: right antecubital; 08:42 Follow up: Response: No adverse reaction; IV Status: Completed infusion; IV Intake: [id number] 08:41 Drug: Ciprofloxacin PO 500 mg PO once Route: PO; ll1 08:42 Follow up: Response: No adverse reaction ll1 08:42 Not Given (left before getting it): [id number] mg PO once ll1 Medication: 07:00 VIS not applicable for this client. dd2 Intake: 08:42 IV: 10ml; Total: 10ml. ll1 08:57 IV: 950ml; Total: 960ml. ll1 Outcome: 08:30 Discharge ordered by MD. pulido 08:42 Patient left the ED. ll1 08:42 Discharged to home ambulatory, ll1 08:42 Condition: stable 08:42 Discharge instructions given to patient, Instructed on discharge instructions, follow up and referral plans. medication usage, Demonstrated understanding of instructions, follow-up care, medications, Prescriptions given X 4, Signatures: Jean Carlos Dias MD MD cha Lewis, Lynsay RN RN ll1 Zuleima Strickland [id number] Gerard Feliciano RN RN bm8 MATI ZUÑIGA RN RN dd2 Corrections: (The following items were deleted from the chart) : 07:43 Test, Urine+UC.LAB.BRZ drawn and sent. [place] [id number] 07:43 Urinalysis+U.LAB.BRZ drawn and sent. [place] [id number] : 07:18 Urine collected: clean catch specimen, clear, Amount Voided: 300mL [place] [id number]
[2024-04-18] MEDS ORDERED: CEFTRIAXONE 1000 MG/VIAL ONE (08:32)
[2024-04-18] MEDS ORDERED: CIPROFLOXACIN HCL 500 MG TAB ONE (08:32)
[2024-04-18] MEDS ORDERED: MAGNES/ALUMIN/SIMET 30ML UCUP ONE (08:32)
[2024-04-18] MEDS ORDERED: LIDOCAINE VISCOUS 2% 10ML ORAL SOLN ONE (08:33)
[2024-04-18 08:47] VITALS: BP 123/85; TEMP 97.9; O2SAT 99
== END 2024-04-18 08:42 | disposition home or self-care (01) ==
LOC: ER 06:31
DX: N39.0 Urinary tract infection, site not specified (principal); R11.2 Nausea with vomiting, unspecified; R10.9 Unspecified abdominal pain; R19.7 Diarrhea, unspecified; E87.6 Hypokalemia; Z90.49 Acquired absence of other specified parts of digestive tract; Z88.8 Allergy status to other drugs, medicaments and biological substances
CPT/HCPCS: 96361; 87088; 85025; 81001; 87086; 36415; 84703; 81025; 83690; 80053; 96375; 96374; 99284; J2405; J7030; J0696

== ENCOUNTER 2024-06-15 10:54 | Emergency (ER) | payer OTHER ==
--- OUTSIDE RECORDS SUMMARY | 2024-06-15 11:05 | XMS REPORT | Continuity of Care Document ---
Author Name Unknown Address [address] [facility] [address] [place] [address] Organization [facility] [place] Address [address] [facility] [place] [address] Care Team Providers Care Technology Manager Name Role Phone Jess Munson MD Primary Care Physician + [phone] Jess Munson MD Attending Clinician [phone] JESS MUNSON Attending Clinician Unavailab JESS Killian Attending Clinician Unavailab le Doctor Unassigned, Timpson Attending Clinician U violaailANGUS Alvarez Attending Clinician Unavailable ANGUS DWYER Attending Clinician Unavailable Angus Dwyer DO Attending Clinician [phone] ASTER LEE Attending Clinician Unavailable ASTER LEE Attending Clinician Unavailable Aster Lee NP Attending Clinician [phone] Eva Bryan MD Attending Clinician +[phone] EVA BRYAN Attending Clinician Unavailable VANESSA LEYVA Attending Clinician Unavailable VANESSA LEYVA Attending Clinician Unavailable SHORTY ZAMBRANO Attending Clinician Unavailable SHORTY ZAMBRANO Attending Clinician Unavailable Shorty Draper Attending Clinician [phone] Radha Hurst MD Attending Clinician + [phone] Gianni Lopez CRNA Attending Clinician [phone] TIANNA MEI Attending Clinician Unavailable TIANNA MEI Attending Clinician Unavailable CARO BAUER Attending Clinician Unavailable CARO BAUER Attending Clinician Unavailable Caro Bauer MD Attending Clinician + [phone] Yann Ordonez Attending Clinician + [phone] Yisel Hart MD Attending Clinician +[phone] YISEL HART Attending Clinician Unavailable KONRAD ORDOÑEZ Attending Clinician Unavailab KONRAD Holguin Attending Clinician Unavailab merly Ordoñez CATALOGUE AND SPECIAL PRODUCTS MANAGER, Konrad Attending Clinician +[phone] Tianna Young Attending Clinician +[phone] ISAAC SHAY Attending Clinician Unavailable Vanessa Leyva MD Attending Clinician +[phone] Jose De Jesus Medina MD Attending Clinician +[phone] JOSE DE JESUS MEDINA Attending Clinician Unavailable JOSE DE JESUS MEDINA Attending Clinician Unavailable 2, [facility] Attending Clinician Unavailable KELLY SIMMS Attending Clinician UnavailKELLY Ferrera Attending Clinician Unavailelliott Simms MD, Kelly Tolentino Attending Clinician + [phone] TIFF ISABEL Attending Clinician Unavailable TIFF ISABEL Attending Clinician Unavailable Maame CATALOGUE AND SPECIAL PRODUCTS MANAGER, Tiff Attending Clinician +[phone] 2, [facility] Attending Clinician Unavailable BONITA TRIVEDI Attending Clinician Unavailab Bonita Hernandez DO Attending Clinician + [phone] Carlos Ibrahim MD Attending Clinician [phone] Doctor Unassigned, Timpson Attending Clinician U NICOLE Aparicio Attending Clinician UnavailNICOLE Sellers Attending Clinician Unavaila KAMILA Barrios Attending Clinician Unavailable JACINTA VOSS Attending Clinician Unavaila susu Rivera, [facility] Attending Clinician Henrietta Meche Junior Attending Clinician + Shanika PIERRE, Jacinta Castro Attending Clinician [phone] MECHE ROBERSON Attending Clinician Unavail able Rodrick Carlisle Attending Clinician UnaDREW Thacker Attending Clinician Unavailable RODRICK PETE Attending Clinician UnavailWilver Khan MD Attending Clinician +[phone] LOVE DOWELL Attending Clinician UnavailLOVE Gonzalez Attending Clinician Unavailabl BRENDA Klein Attending Clinician Unavailable Brenda Velásquez MD Attending Clinician [phone] Richard PAC, Fernando Isabel Attending Clinician [phone] Ultrasound, Ang-Mfm Attending Clinician Unavaila Vinh Romano MD Attending Clinician +[phone] VINH MONCADA Attending Clinician Unavailable VINH MONCADA Attending Clinician Unavailable Juan BOND, Ivanna Attending Clinician +[phone] Maddie Romeo MD Attending Clinician +[phone] MADDIE ROMEO Attending Clinician Unavailable Lab, Ang-Rmchp Attending Clinician Unavailable Chema PAC, Alayna S Attending Clinician [phone] Abdullahi Gomez MD Attending Clinician +[phone] Foreign Calvillo Attending Clinician + [phone] Edith Terry MD Attending Clinician +[phone] EDITH TERRY Attending Clinician Unavailable EDITH TERRY Attending Clinician Unavailable SHORTY ZAMBRANO Admitting Clinician Unavailable EVA BRYAN Admitting Clinician Unavailable Eva Bryan MD Admitting Clinician +[phone] YISEL HART Admitting Clinician Unavailable Yisel Hart MD Admitting Clinician +[phone] KELLY SIMMS Admitting Clinician UnavailVANESSA Garza Admitting Clinician Unavailable Vanessa Leyva MD Admitting Clinician +[phone] BRENDA VELÁSQUEZ Admitting Clinician Unavailable Brenda Velásquez MD Admitting Clinician +[phone] Edith Terry MD Admitting Clinician EDITH TERRY Admitting Clinician Unavailable Payers Payer Name Policy Type Policy Number Effective Date Expirati on Date Source [employer] [id number] 2021 00:00:00 Problems Condition Name Condition Details Condition Category Status Onset Date Resolution Date Last Treatment Date Treating Clinician Comments Source Gallbladde r sludge Gallbladde r sludge Disease Active 2023-02-23 00:00: 00 [facility] Hematemesi s with nausea Hematemesi s with nausea Disease Active 2023-02 0-03 00:00: 00 [facility] Coffee ground emesis Coffee ground emesis Disease Active 2023-02 0-03 00:00: 00 [facility] Abdominal pain, epigastric Abdominal pain, epigastric Disease Active 2023-02 0-03 00:00: 00 [facility] Papanicola ou smear of cervix with low grade squamous intraepith elial lesion (LGSIL) Papanicola ou smear of cervix with low grade squamous intraepith elial lesion (LGSIL) Disease Active 07-06 00:00: 00 Overview: Formattin g of this note might be different from the original. LGSIL in 2021 needs repeat pap smear in 2022. 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 Disease Active 4-12 00:00: 00 [facility] Tetrahydro cannabinol (THC) use disorder, mild, abuse Tetrahydro cannabinol (THC) use disorder, mild, abuse Disease Resolve d 5-10 00:00: 00 2022-12-25 00:00:00 2022-12-25 13:59:24 [facility] Chronic hypertensi on with superimpos ed preeclamps ia Chronic hypertensi on with superimpos ed preeclamps ia Disease Resolve d 2021-02 0-08 00:00: 00 2022-01-20 00:00:00 2022-01-20 14:17:40 [facility] Supervisio n of high risk , antepartum Supervisio n of high risk , antepartum Disease Resolve d 5-05 00:00: 00 2022-01-20 00:00:00 2022-01-20 14:17:35 [facility] GBS (group B Streptococ cus carrier), +RV culture, 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 Will need ABX in labor. [facility] Single liveborn, born in hospital, delivered by vaginal delivery Single liveborn, born in hospital, delivered by vaginal delivery Disease Resolve d 2021-02 0-09 00:00: 00 2021-12-22 00:00:00 2021-12-22 07:58:27 [facility] Morbid obesity with body mass index of 40.0-49.9 Morbid obesity with body mass index of 40.0-49.9 Disease Resolve d 2021-02 0-08 00:00: 00 2021-12-22 00:00:00 2021-12-22 15:59:51 [facility] Severe pre-eclamp shena in third trimester Severe pre-eclamp shena in third trimester Disease Resolve d 2021-02 0-08 00:00: 00 2021-12-22 00:00:00 2021-12-22 07:58:22 [facility] Elevated blood pressure reading without diagnosis of hypertensi on Elevated blood pressure reading without diagnosis of hypertensi on Disease Resolve d 9-08 00:00: 00 2021-12-22 00:00:00 2021-12-22 07:58:07 [facility] Proteinuri a affecting in third trimester Proteinuri a affecting in third trimester Disease Resolve d 2021-0 9-08 00:00: 00 2021-12-22 00:00:00 2021-12-22 07:58:17 [facility] Intractabl e nausea and vomiting Intractabl e nausea and vomiting Disease Resolve d 2021-0 7-05 00:00: 00 2021-12-22 00:00:00 2021-12-22 07:58:09 [facility] Urinary tract infection without hematuria, site unspecifie d Urinary tract infection without hematuria, site unspecifie d Disease Resolve d 0 6-02 00:00: 00 2021-12-22 00:00:00 2021-12-22 07:57:57 [facility] Nausea and vomiting during Nausea and vomiting during Disease Resolve d 2021-0 5-10 00:00: 00 2021-12-22 00:00:00 2021-12-22 07:58:11 [facility] Nausea and vomiting during Nausea and vomiting during Disease Resolve d 2021-0 5-10 00:00: 00 2021-12-22 00:00:00 2021-12-22 07:58:11 [facility] Primigravi da in second trimester Primigravi da in second trimester Disease Resolve d 2021-0 5-05 00:00: 00 2021-12-22 00:00:00 2021-12-22 07:58:15 [facility] Obesity in Obesity in Disease Resolve d 2021-0 5-05 00:00: 00 2021-12-22 00:00:00 2021-12-22 07:58:13 [facility] Chronic hypertensi on affecting Chronic hypertensi on affecting Disease Resolve d 2021-0 4-24 00:00: 00 2021-12-22 00:00:00 2021-12-22 07:58:04 [facility] BMI 40.0-44.9, adult BMI 40.0-44.9, adult Disease Resolve d 2021-0 4-23 00:00: 00 2021-12-22 00:00:00 2021-12-22 15:59:13 [facility] 15 weeks gestation of 15 weeks gestation of Disease Resolve d 2021-0 4-12 00:00: 00 2021-12-22 00:00:00 2021-12-22 07:58:01 [facility] Hyperemesi s Hyperemesi s Disease Resolve d 2021-0 5-10 00:00: 00 2021-11-26 00:00:00 2021-11-26 09:09:11 [facility] Hyperbilir ubinemia Hyperbilir ubinemia Disease Resolve d 2021-0 4-25 00:00: 00 2021-11-26 00:00:00 2021-11-26 09:09:06 [facility] Hypomagnes emia Hypomagnes emia Disease Resolve d 2021-0 4-25 00:00: 00 2021-11-26 00:00:00 2021-11-26 09:09:05 [facility] Hypocalcem ia Hypocalcem ia Disease Resolve d 2021-0 4-25 00:00: 00 2021-11-26 00:00:00 2021-11-26 09:09:03 [facility] Hypokalemi a Hypokalemi a Disease Resolve d 2021-0 4-12 00:00: 00 2021-11-26 00:00:00 2021-11-26 09:09:30 [facility] Hyponatrem ia Hyponatrem ia Disease Resolve d 2021-0 4-12 00:00: 00 2021-11-26 00:00:00 2021-11-26 09:09:33 [facility] Tachycardi a Tachycardi a Disease Resolve d 2021-0 4-12 00:00: 00 2021-11-26 00:00:00 2021-11-26 09:09:30 [facility] Nausea and vomiting in prior to 22 weeks gestation Nausea and vomiting in prior to 22 weeks gestation Disease Resolve d -12 00:00: 00 2021-11-26 00:00:00 2021-11-26 09:09:43 [facility] Nausea and vomiting in prior to 22 weeks gestation Nausea and vomiting in prior to 22 weeks gestation Disease Resolve d 12 00:00: 00 2021-11-26 00:00:00 2021-11-26 09:09:43 [facility] Allergies, Adverse Reactions, Alerts Allergy Name Allergy Type Status Severity Reaction(s) Onset Date Inactive Date Treating Clinician Comments Source Egg Propensi ty to adverse reaction s Active Nausea and/or Vomiting 06-29 00:00: 00 [facility] EGG DRUG INGREDI Active N/V 06-29 00:00: 00 [facility] Metoclop ramide Drug Allergy Active Extra pyramidal effects 05-31 00:00: 00 [facility] METOCLOP RAMIDE DRUG INGREDI Active Med EP Effects 05-31 00:00: 00 [facility] Family History Family Member Diagnosis Comments Start Date Stop Date Sourc e Natural mother Diabetes [facility] Natural mother Heart [facility] Social History Social Habit Start Date Stop Date Quantity Comments Source ASSERTION 2021-03-26 00:00:00 Not [facility] of tobacco use Current smoker [facility] Alcoholic beverage intake 2024-04-16 00:00:00 2024-04-16 00:00:00 Current drinker of alcohol (finding) [facility] Alcohol Comment 2023-11-26 00:00:00 2023-11-26 00:00:00 ocassional [facility] Tobacco use and exposure 2023-11-26 00:00:00 2023-11-26 00:00:00 Smokeless tobacco non-user [facility] History of Social function 2023-11-22 00:00:00 2023-11-22 00:00:00 [facility] Alcohol intake 2023-06-21 00:00:00 2023-06-21 00:00:00 Ex-drinker (finding) [facility] Exposure to SARS-CoV-2 (event) 2022-01-10 00:00:00 2022-01-20 14:04:00 Not sure [facility] Tobacco Comment 2021-09-15 00:00:00 2021-09-15 00:00:00 marijuana,no nicotine stopped for [facility] Sex assigned at 1995 00:00:00 1995 00:00:00 [facility] Smoking Status Start Date Stop Date Source Ex-smoker 2023-11-26 00:00:00 2023-11-26 [facility] Ordered Medication Name Filled Medication Name Start Date Stop Date Current Medication? Ordering Clinician Indication Dosage Frequency Signature (SIG) Comments Components Source SERTraline 50 mg tablet 05-27 00:00: 00 Yes [id number] 50mg Take 1 tablet by mouth in the morning. [facility] ramelteon 8 mg tablet 05-27 00:00: 00 Yes [id number] 8mg Take 1 tablet by mouth at bedtime. [facility] doxepin 10 mg capsule 3-14 00:00: 00 05-27 00:00 :00 No [id number] 10mg Take 1 capsule by mouth at bedtime. [facility] SERTraline 25 mg tablet 3-14 00:00: 00 05-27 00:00 :00 No [id number] 25mg Take 1 tablet by mouth in the morning. [facility] ondansetron 4 mg disintegrat ing tablet 04-16 00:00: 00 Yes [id number] 4mg Take 1 tablet by mouth every 8 (eight) hours as needed for Nausea and Vomiting (N/V). [facility] naproxen (NAPROSYN) tablet 500 mg 04-12 11:15: 00 04-12 11:05 :00 No 500mg 500 mg, Oral, Once, 1 dose, On 04/12/24 at 0515, Routine [facility] butalbital- acetaminoph en-caff (ESGIC) 50-325-40 mg tablet 1 tablet 04-12 11:00: 00 04-12 11:05 :00 No 1{tbl} 1 tablet, Oral, ONCE, 1 dose, On 04/12/24 at 0500, RACHAEL [facility] chlorphenir amine (CHLORTABS) 4 mg tablet 04-12 00:00: 00 04-16 00:00 :00 No [id number] 4mg Take 1 tablet by mouth every 6 (six) hours as needed for Allergies. [facility] methylPREDN ISolone (MEDROL, MARCO ANTONIO,) 4 mg tablets 04-12 00:00: 00 04-16 00:00 :00 No [id number] Take by mouth SEE-INSTRU CTIONS. follow package directions [facility] phentermine -topiramate (QSYMIA) 7.5-46 mg per capsule 2- 00:00: 00 Yes [id number] 104 1{capsu le} Take 1 capsule by mouth in the morning. Start 3.75mg qAM x 14 days; then increase to 7.5mg qAM. [facility] phentermine -topiramate (QSYMIA) 3.75-23 mg per capsule - 00:00: 00 04-15 05:59 :00 Yes [id number] 104 1{capsu le} Take 1 capsule by mouth in the morning for 14 days. [facility] zolpidem 5 mg tablet 2- 00:00: 00 Yes [id number] 5mg Take 1 tablet by mouth at bedtime as needed for Insomnia. [facility] pantoprazol e 40 mg EC tablet 2- 00:00: 00 Yes [id number] 40mg Take 1 tablet by mouth in the morning. [facility] HYDROcodone -acetaminop hen (NORCO) 10-325 mg tablet 1 tablet 03-16 09:30: 00 03-16 08:29 :00 No 1{tbl} 1 tablet, Oral, ONCE, 1 dose, On 03/16/24 at 0330, Routine [facility] cephALEXin (KEFLEX) capsule 500 mg 03-16 08:30: 00 03-16 08:29 :00 No 500mg 500 mg, Oral, ONCE, 1 dose, On 03/16/24 at 0230, RACHAEL, Reason for Anti-Infec tive: Documented Infection, Documented Infection Site: HEENT, Duration of Therapy: Once (ED) [facility] cephALEXin 500 mg capsule 03-16 00:00: 00 03-24 05:59 :00 No [id number] 500mg Take 1 capsule by mouth 4 (four) times daily for 7 days. [facility] indomethaci n 50 mg capsule 03-16 00:00: 00 03-24 05:59 :00 No [id number] 50mg Take 1 capsule by mouth in the morning and 1 capsule at noon and 1 capsule in the evening. Take with meals. Do all this for 7 days. [facility] tirzepatide , weight loss, 5 mg/0.5 mL subcutaneou s injection 03-05 00:00: 00 Yes [id number] 104 After 2.5mg qWeek x 4 Weeks, then increase to 5mg qWeek [facility] tirzepatide 2.5 mg/0.5 mL subcutaneou s injection pen 03-05 00:00: 00 04-16 00:00 :00 No [id number] 104 2.5mg inject 2.5 mg under the skin weekly. Start 2.5mg qWeek x 4 Weeks, then increase to 5mg qWeek x 4 Weeks, then increase to 7.5mg qWeek x 4 Weeks, the increase to 10mg qWeek. [facility] phentermine -topiramate 3.75-23 mg per capsule 03-05 00:00: 00 03-13 05:59 :00 No [id number] 104 1{capsu le} Take 1 capsule by mouth in the morning for 7 days. [facility] zolpidem 5 mg tablet - 00:00: 00 03-28 00:00 :00 No [id number] 5mg Take 1 tablet by mouth at bedtime as needed for Insomnia. [facility] phentermine -topiramate (QSYMIA) 3.75-23 mg per capsule 02-26 00:00: 00 03-05 00:00 :00 No [id number] 104 1{capsu le} Take 1 capsule by mouth in the morning. [facility] ondansetron (ZOFRAN-ODT ) disintegrat ing tablet 4 mg 02-21 09:45: 00 02-21 08:46 :00 No 4mg 4 mg, Oral, ONCE, 1 dose, On Sun02/22/24 at 0345, RACHAEL [facility] cefTRIAXone (ROCEPHIN) 1,000 mg in water for injection, sterile 10 mL IV Push 02-21 08:30: 00 02-21 08:31 :00 No 1000mg 1,000 mg, Intravenou s, ONCE, 1 dose, On Sun02/22/24 at 0230, 10 mL, Reason for Anti-Infec tive: Empiric Therapy for Suspected Infection, Empiric Therapy Site: Urine, Duration of therapy: Once (ED) [facility] iopamidol (ISOVUE 370-500 mL) injection 80 mL 02-21 08:30: 00 02-21 08:30 :00 No [id number] 80mL 80 mL, Intravenou s, ONCE, 1 dose, On Sun02/22/24 at 0230, Routine [facility] maalox/diph enhydrAMINE :lidocaine2 %viscous 1:1:1: suspension (COMPOUNDED ) 02-21 07:45: 00 02-21 07:36 :00 No 15mL 15 mL, Oral, ONCE, 1 dose, On Sun02/22/24 at 0145, RACHAEL [facility] NaCl 0.9% (NS) bolus infusion 1,000 mL 02-21 06:45: 00 02-21 08:11 :00 No 1000mL at 999 mL/hr, 1,000 mL, IV Infusion, ONCE, 1 dose, On Sun02/22/24 at 0045, RACHAEL [facility] morpHINE (4 mg/mL) injection 4 mg 02-21 06:00: 02-21 06:13 :00 No 4mg 4 mg, Slow IV Push, ONCE, 1 dose, On Sun02/22/24 at 0000, STAT [facility] ondansetron (ZOFRAN (PF)) injection 8 mg 02-21 06:00: 00 02-21 06:17 :00 No 8mg 8 mg, Slow IV Push, ONCE, 1 dose, On Sun02/22/24 at 0000, Administer over 2-5 Minutes, 4 mL [facility] cefdinir 300 mg capsule 02-21 00:00: 00 03-01 05:59 :00 No [id number] 300mg Take 1 capsule by mouth every 12 (twelve) hours for 7 days. [facility] ondansetron 4 mg disintegrat ing tablet 02-21 00:00: 00 02-26 00:00 :00 No [id number] 4mg Take 1 tablet by mouth every 8 (eight) hours as needed for Nausea and Vomiting (N/V). [facility] acetaminoph en (TYLENOL EXTRA STRENGTH) 500 mg tablet 2023-02 00:00: 00 02-26 00:00 :00 No [id number] 1000mg Take 2 tablets by mouth every 8 (eight) hours for 15 days. [facility] ibuprofen 800 mg tablet 2023-02 00:00: 00 02-26 00:00 :00 No [id number] 800mg Take 1 tablet by mouth every 8 (eight) hours for 15 days. [facility] HYDROcodone -acetaminop hen (NORCO 5) tablet 1 tablet 2023-02 18:30: 00 01-28 19:00 :00 No 1{tbl} 1 tablet, Oral, ONCE, 1 dose, On Sun01/29/24 at 1230, Routine, PACU [facility] lactated ringers IV infusion 1,000 mL 2023-02 18:30: 00 01-28 22:20 :16 No 1000mL at 50 mL/hr, 1,000 mL, IV Infusion, CONTINUOUS , Starting on Sun01/29/24 at 1230, Until Sun01/29/24 at 1620, Routine, PACU [facility] HYDROmorphO ne (DILAUDID) injection 0.2 mg 2023-02 18:19: 17 01-28 22:20 :16 No .2mg 0.2 mg, Slow IV Push, Q5MIN PRN, 10 doses, Starting on Sun01/29/24 at 1219, Until Sun01/29/24 at 1620, Routine, Pain (scale 7-10), PACU, Is this medication approved by a Faculty level provider? 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 approving Restricted medication : RADHA HURST [facility] FENTanyl (PF) (SUBLIMAZE) injection 25 mcg 2023-02 18:19: 17 01-28 22:20 :16 No 25ug 25 mcg, Slow IV Push, Q5MIN PRN, 4 doses, Starting on Sun01/29/24 at 1219, Until Sun01/29/24 at 1620, Routine, Pain Scale 4-6, PACU [facility] ondansetron (ZOFRAN (PF)) injection 4 mg 2023-02 18:19: 17 01-28 22:20 :16 No 4mg 4 mg, Slow IV Push, PRN, 1 dose, Starting on Sun01/29/24 at 1219, Until Sun01/29/24 at 1620, Administer over 2-5 Minutes, 2 mL, PACU [facility] bupivacaine -epinephrin e-pf (SENSORCAIN E W/EPINEPHRI NE) 0.25 %-1:200,000 30 mL, lidocaine 1% (PF) (XYLOCAINE) 30 mL 2023-02 16:57: 00 01-28 18:29 :17 No PRN, Starting on Sun01/29/24 at 1057, Intra-op [facility] sodium chloride 0.9 % irrigation solution 2023-02 16:56: 00 01-28 18:29 :17 No PRN, Starting on Sun01/29/24 at 1056, Until Sun01/29/24 at 1229, Intra-op [facility] acetaminoph en (TYLENOL) 325 mg tablet 2023-02 00:00: 00 02-05 05:59 :00 No [id number] 650mg Take 2 tablets by mouth every 6 (six) hours for 7 days. [facility] ibuprofen 800 mg tablet 2023-02 00:00: 00 02-05 05:59 :00 No [id number] 800mg Take 1 tablet by mouth every 6 (six) hours for 7 days. [facility] traMADoL 50 mg tablet 2023-02 00:00: 00 02-05 05:59 :00 No [id number] 50mg Take 1 tablet by mouth every 8 (eight) hours for 7 days. Indication s: acute pain, chronic pain [facility] HYDROcodone -acetaminop hen 5-325 mg tablet 2023-02 00:00: 00 02-05 05:59 :00 No [id number] 1{tbl} Take 1 tablet by mouth every 6 (six) hours as needed for Pain (scale 7-10) for up to 7 days. Indication s: acute pain [facility] phentermine 37.5 mg tablet 2023-02 00:00: 00 02-26 00:00 :00 No [id number] 104 37.5mg Take 1 tablet by mouth daily with breakfast. [facility] zolpidem 5 mg tablet 2023-02 00:00: 00 02-26 00:00 :00 No [id number] 5mg Take 1 tablet by mouth at bedtime as needed for Insomnia. [facility] ondansetron 8 mg tablet 2023-02 00:00: 00 02-26 00:00 :00 No [id number] 8mg Take 1 tablet by mouth every 8 (eight) hours as needed for Nausea and Vomiting (N/V). [facility] ketorolac (TORADOL) injection 30 mg 2023-02 11:30: 00 01-11 10:39 :00 No 30mg 30 mg, Slow IV Push, ONCE, 1 dose, On 01/12/24 at 0530, Routine [facility] fentanyl PF (SUBLIMAZE (PF)) injection 50 mcg 2023-02 11:15: 00 01-11 11:15 :00 No 50ug 50 mcg, Slow IV Push, ONCE, 1 dose, On 01/12/24 at 0515, Routine [facility] ondansetron (ZOFRAN (PF)) injection 4 mg 2023-02 10:30: 00 01-11 10:29 :00 No 4mg 4 mg, Slow IV Push, ONCE, 1 dose, On 01/12/24 at 0430, Administer over 2-5 Minutes, 2 mL [facility] fentanyl PF (SUBLIMAZE (PF)) injection 50 mcg 2023-02 10:30: 00 01-11 10:40 :00 No 50ug 50 mcg, Slow IV Push, ONCE, 1 dose, On 01/12/24 at 0430, RACHAEL [facility] ondansetron (ZOFRAN (PF)) injection 4 mg 2023-02 10:15: 00 01-11 10:07 :00 No 4mg 4 mg, Slow IV Push, ONCE, 1 dose, On 01/12/24 at 0415, Administer over 2-5 Minutes, 2 mL [facility] traMADoL (ULTRAM) 50 mg tablet 2023-02 00:00: 00 02-26 00:00 :00 No [id number] 50mg Take 1 tablet by mouth every 6 (six) hours as needed for Pain (scale 7-10). Indication s: acute pain [facility] dicyclomine 20 mg tablet 2023-02 00:00: 00 02-26 00:00 :00 No [id number] 20mg Take 1 tablet by mouth every 6 (six) hours as needed for Abdominal pain. [facility] ondansetron (ZOFRAN) 4 mg tablet 2023-02 00:00: 00 01-27 00:00 :00 No [id number] 4mg Take 1 tablet by mouth every 8 (eight) hours as needed for Nausea and Vomiting (N/V). [facility] ondansetron 8 mg tablet 2023-02 00:00: 00 01-24 00:00 :00 No [id number] 8mg Take 1 tablet by mouth every 8 (eight) hours as needed for Nausea and Vomiting (N/V). [facility] ondansetron 4 mg disintegrat ing tablet 2023-02 00:00: 00 01-10 00:00 :00 No [id number] 4mg Take 1 tablet by mouth every 8 (eight) hours as needed for Nausea and Vomiting (N/V). [facility] phentermine 37.5 mg tablet 2023-02 00:00: 00 01-24 00:00 :00 No [id number] 104 37.5mg Take 1 tablet by mouth daily with breakfast. [facility] zolpidem 5 mg tablet 2023-02 00:00: 00 01-24 00:00 :00 No [id number] 5mg Take 1 tablet by mouth at bedtime as needed for Insomnia. [facility] ondansetron 4 mg disintegrat ing tablet 2023-02 00:00: 00 01-09 00:00 :00 No [id number] 4mg Take 1 tablet by mouth every 8 (eight) hours as needed for Nausea and Vomiting (N/V). [facility] ondansetron 4 mg tablet 2023-02 00:00: 00 01-10 00:00 :00 No [id number] 4mg Take 1 tablet by mouth every 8 (eight) hours as needed for Nausea and Vomiting (N/V). [facility] TRAZODONE 100 mg tablet 2023-02 00:00: 00 02-26 00:00 :00 No [id number] 100mg TAKE 1 TABLET BY MOUTH EVERYDAY AT BEDTIME [facility] pantoprazol e 40 mg EC tablet 11-18 00:00: 00 03-28 00:00 :00 No [id number] 40mg Take 1 tablet by mouth in the morning. [facility] phentermine 37.5 mg tablet 11-18 00:00: 12-24 00:00 :00 No [id number] 104 37.5mg Take 1 tablet by mouth daily with breakfast. [facility] zolpidem 5 mg tablet 11-18 00:00: 12-24 00:00 :00 No [id number] 5mg Take 1 tablet by mouth at bedtime as needed for Insomnia. [facility] proMETHazin e (PHENERGAN) 12.5 mg in NS 50 mL IV piggyback (CNR) 11-17 15:30: 00 11-17 15:49 :00 No 12.5mg 12.5 mg, IV Piggyback, at 200 mL/hr Administer over 15 Minutes, ONCE, 1 dose, [facility]23 [facility] 1030[facility] ([facility]/mL[facility] 4 mg 11-17 15:30: 00 11-17 15:34 :00 No 4mg 4 mg, Slow IV Push, ONCE, 1 dose, On 11/18/23 at 1030, STAT [facility] ketorolac (TORADOL) injection 30 mg 11-17 15:00: 00 11-17 14:09 :00 No 30mg 30 mg, Slow IV Push, ONCE, 1 dose, On 11/18/23 at 1000, [facility] famotidine (PEPCID (PF)) injection 20 mg 11-17 14:15: 00 11-17 14:09 :00 No 20mg 20 mg, Slow IV Push, ONCE, 1 dose, On 11/18/23 at 0915, RACHAEL [facility] iopamidol (ISOVUE 370-500 mL) injection 100 mL 11-17 13:30: 00 11-17 13:45 :00 No [id number] 100mL 100 mL, Intravenou s, ONCE, 1 dose, On Sun11/18/23 at 0845, Routine [facility] NaCl 0.9% (NS) IV infusion 1,000 mL 11-17 13:00: 00 11-17 15:15 :00 No 1000mL at 999 mL/hr, Intravenou s, ONCE, 1 dose, On Sun11/18/23 at 0800, [facility] proMETHazin e (PHENERGAN) 12.5 mg in NS 50 mL IV piggyback (CNR) 11-17 12:30: 00 11-17 13:33 :00 No 12.5mg 12.5 mg, IV Piggyback, at 200 mL/hr Administer over 15 Minutes, ONCE, 1 dose, On Sun11/18/23 at 0730[facility] fent[facility] (SUBLIMAZE (PF)) injection 100 mcg 11-17 11:15: 00 11-17 11:16 :00 No 100ug 100 mcg, Slow IV Push, ONCE, 1 dose, On Sun11/18/23 at 0615, Routine [facility] ondansetron (ZOFRAN (PF)) injection 8 mg 11-17 11:00: 00 11-17 11:10 :00 No 8mg 8 mg, Slow IV Push, ONCE, 1 dose, On Sun11/18/23 at 0600, [facility] sodium chloride (NS) injection 5 mL 11-17 10:51: 45 Yes 5mL 5 mL, Intravenou s, PRN, Starting on Sun11/18/23 at 0551, Until Discontinu ed, Routine, IV line flushing [facility] proMETHazin e 25 mg tablet 11-17 00:00: 00 02-26 00:00 :00 No [id number] 25mg Take 1 tablet by mouth every 6 (six) hours as needed for Nausea and Vomiting (N/V). [facility] traMADoL 50 mg tablet 11-17 00:00: 00 01-28 00:00 :00 No [id number] 50mg Take 1 tablet by mouth every 6 (six) hours as needed (pain). Indication s: acute pain [facility] zolpidem 5 mg tablet 11-17 00:00: 00 11-17 00:00 :00 No [id number] 5mg Take 1 tablet by mouth at bedtime as needed for Insomnia. [facility] KCL (KLOR-CON M20) tablet 20 mEq 11-07 19:30: 00 11-07 19:56 :00 No 20meq 20 mEq, Oral, ONCE, 1 dose, On Gabby 11/08/23 at 1430, [facility] proMETHazin e (PHENERGAN) 12.5 mg in NS 50 mL IV piggyback (CNR) 11-07 17:45: 00 11-07 18:53 :00 No 12.5mg 12.5 mg, IV Piggyback, at 200 mL/hr Administer over 15 Minutes, ONCE, 1 dose, On Gabby 11/08/23 at 1245, [facility] ondansetron (ZOFRAN (PF)) injection 4 mg 11-07 16:30: 00 11-07 16:38 :00 No 4mg 4 mg, Slow IV Push, ONCE, 1 dose, On Gabby 11/08/23 at 1130, [facility] famotidine (PEPCID (PF)) injection 20 mg 11-07 16:30: 00 11-07 16:38 :00 No 20mg 20 mg, Slow IV Push, ONCE, 1 dose, On Gabby 11/08/23 at 1130, [facility] NaCl 0.9% (NS) bolus infusion 1,000 mL 11-07 16:30: 00 11-07 19:53 :00 No 1000mL at 999 mL/hr, 1,000 mL, IV Infusion, ONCE, 1 dose, On Gabby 11/08/23 at 1130, RACHAEL [facility] morpHINE (4 mg/mL) injection 4 mg 11-07 15:45: 00 11-07 18:39 :00 No 4mg 4 mg, Slow IV Push, ONCE, 1 dose, On Gabby 11/08/23 at 1045, [facility]HAEL [facility] ondansetron 4 mg disintegrat ing tablet 11-07 00:00: 00 11-12 04:59 :00 No [id number] 4mg Take 1 tablet by mouth every 8 (eight) hours as needed for Nausea and Vomiting (N/V) for up to 4 days. [facility] zolpidem 5 mg tablet 10-18 00:00: 00 11-15 00:00 :00 No [id number] 5mg Take 1 tablet by mouth at bedtime as needed for Insomnia. [facility] ergocalcife rol, vitamin d2, (VITAMIN D2) 1,250 mcg (50,000 unit) capsule 10-15 00:00: 00 Yes [id number] 56750W Take 1 capsule by mouth weekly. [facility] phentermine 37.5 mg tablet 10-15 00:00: 00 11-18 00:00 :00 No [id number] 37.5mg Take 1 tablet by mouth daily with breakfast. [facility] ergocalcife rol, vitamin d2, (VITAMIN D2) 1,250 mcg (50,000 unit) capsule 10-02 00:00: 00 10-14 00:00 :00 No [id number] 28439K Take 1 capsule by mouth weekly. [facility] zolpidem 5 mg tablet 09-12 00:00: 00 10-15 00:00 :00 No [id number] 5mg Take 1 tablet by mouth at bedtime as needed for Insomnia. [facility] phentermine 37.5 mg tablet 2024-0 7-25 00:00: 00 10-14 00:00 :00 No [id number] 37.5mg Take 1 tablet by mouth daily with breakfast. [facility] phentermine 37.5 mg tablet 08-05 00:00: 00 09-11 00:00 :00 No [id number] 37.5mg Take 1 tablet by mouth daily with breakfast. [facility] zolpidem 5 mg tablet 08-05 00:00: 00 09-11 00:00 :00 No [id number] 5mg Take 1 tablet by mouth at bedtime as needed for Insomnia. [facility] traZODone 100 mg tablet 07-24 00:00: 00 12-09 00:00 :00 No [id number] 100mg Take 1 tablet by mouth at bedtime. [facility] acetaminoph en (TYLENOL) tablet 650 mg 06-20 17:30: 00 06-20 17:25 :00 No 650mg 650 mg, Oral, ONCE, 1 dose, On Sun06/21/23 at 1230, [facility]ACHAEL [facility] sulfamethox azole-trime thoprim 800-160 mg per tablet 06-20 00:00: 00 08-05 00:00 :00 No [id number] 1{tbl} Take 1 tablet by mouth every 12 (twelve) hours. [facility] phentermine 37.5 mg tablet 4-09 00:00: 00 08-05 00:00 :00 No [id number] 37.5mg Take 1 tablet by mouth daily with breakfast. [facility] traZODone 100 mg tablet 0 3-04 00:00: 00 07-24 00:00 :00 No [id number] 100mg Take 1 tablet by mouth at bedtime. [facility] phentermine 37.5 mg tablet 2-22 00:00: 00 05-28 00:00 :00 No [id number] 37.5mg Take 1 tablet by mouth daily with breakfast. [facility] zolpidem 5 mg tablet 2-15 00:00: 00 08-05 00:00 :00 No [id number] 5mg Take 1 tablet by mouth at bedtime as needed for Insomnia. [facility] phentermine 37.5 mg tablet 03-02 00:00: 00 04-11 00:00 :00 No [id number] 37.5mg Take 1 tablet by mouth daily with breakfast. [facility] zolpidem 5 mg tablet 02-20 00:00: 00 04-05 00:00 :00 No [id number] 5mg Take 1 tablet by mouth at bedtime as needed for Insomnia. [facility] phentermine 37.5 mg tablet 2022-02 00:00: 00 03-02 00:00 :00 No [id number] 37.5mg Take 1 tablet by mouth daily with breakfast. [facility] traZODone 100 mg tablet 2022-02 00:00: 00 04-22 00:00 :00 No [id number] 100mg Take 1 tablet by mouth at bedtime. [facility] phentermine 37.5 mg tablet 2022-02 00:00: 00 01-26 00:00 :00 No [id number] 37.5mg Take 1 tablet by mouth daily with breakfast. [facility] zolpidem 5 mg tablet 2022-02 00:00: 00 02-19 00:00 :00 No [id number] 5mg Take 1 tablet by mouth at bedtime as needed for Insomnia. [facility] TRAZODONE 50 mg tablet 2022-02 00:00: 00 01-24 00:00 :00 No [id number] 50mg TAKE 1 TABLET BY MOUTH EVERYDAY AT BEDTIME [facility] ramelteon 8 mg tablet 2022-02 1-16 00:00: 00 01-24 00:00 :00 No [id number] 8mg Take 1 tablet by mouth at bedtime. [facility] Doxepin 6 mg Tab 2022-02-09 00:00: 00 01-04 00:00 :00 No [id number] 6mg Take 6 mg by mouth at bedtime. [facility] ergocalcife rol, vitamin d2, (VITAMIN D2) 1,250 mcg (50,000 unit) capsule 2022-02 00:00: 00 09-30 00:00 :00 No [id number] Take 1 capsule by mouth weekly. [facility] traZODone 50 mg tablet 2022-02 00:00: 00 01-16 00:00 :00 No [id number] 50mg Take 1 tablet by mouth at bedtime. [facility] medroxyPROG ESTERone (DEPO-PROVE RA) syringe 150 mg 2021-02 21:15: 00 01-20 20:41 :00 No [id number] 150mg [facility] NIFEdipine ER 30 mg tablet 2021-02 00:00: 00 01-20 00:00 :00 No [id number] 30mg Take 1 tablet by mouth in the morning. [facility] NIFEdipine ER tablet 30 mg 2021-02 0- 04:00: 00 Yes 30mg 30 mg, Oral, DAILY, First dose on 11/27/21 at 2300, Until Discontinu ed, Routine [facility] vitamin w/FA tablet 2021-02 0-10 00:00: 00 01-20 00:00 :00 No [id number] 1{tbl} Take 1 tablet by mouth in the morning. [facility] docusate 100 mg capsule 2021-02 0-10 00:00: 00 01-20 00:00 :00 No [id number] 200mg Take 2 capsules by mouth once daily as needed for Constipati on. [facility] ferrous sulfate 325 mg (65 mg iron) tablet 2021-02 0-10 00:00: 00 01-20 00:00 :00 No [id number] 325mg Take 1 tablet by mouth in the morning and 1 tablet in the evening. [facility] ibuprofen 600 mg tablet 2021-02 00:00: 00 01-20 00:00 :00 No [id number] 600mg Take 1 tablet by mouth every 6 (six) hours as needed (Pain). Take with food or milk. [facility] D5W 0.45% NaCl (1/2NS) IV infusion 1,000 mL 2021-02 19:38: 00 Yes 1000mL at 50 mL/hr, 1,000 mL, IV Infusion, CONTINUOUS , Starting on 11/27/21 at 1445, Until Discontinu ed, Routine [facility] HYDROcodone -acetaminop hen (NORCO 5) 5-325 mg tablet 1 tablet 2021-02 12:41: 25 Yes 1{tbl} 1 tablet, Oral, Q6HPRN, Starting on 11/27/21 at 0741, Until Discontinu ed, Routine, Pain (scale 7-10) [facility] ibuprofen (IBU) tablet 600 mg 2021-02 12:41: 25 Yes 600mg 600 mg, Oral, Q6HPRN, Starting on 11/27/21 at 0741, Until Discontinu ed, Routine, Pain (scale 4-6) [facility] acetaminoph en (TYLENOL) tablet 650 mg 2021-02 12:41: 25 Yes 650mg 650 mg, Oral, Q6HPRN, Starting on 11/27/21 at 0741, Until Discontinu ed, Routine, Pain (scale 1-3) [facility] diphenhydrA MINE (BENADRYL) tablet 25 mg 2021-02 12:41: 25 Yes 25mg 25 mg, Oral, Q6HPRN, Starting on 11/27/21 at 0741, Until Discontinu ed, Routine, Sleep, Itching [facility] ondansetron (ZOFRAN (PF)) injection 4 mg 2021-02 12:41: 25 Yes 4mg 4 mg, Slow IV Push, Q8HPRN, Starting on 11/27/21 at 0741, Until Discontinu ed, Routine, Nausea and Vomiting (N/V) [facility] simethicone (GAS RELIEF (SIMETHICON E)) chewable tablet 160 mg 2021-02 12:41: 25 Yes 160mg 160 mg, Oral, PC+HSPRN, Starting on 11/27/21 at 0741, Until Discontinu ed, Routine, Gas [facility] docusate (COLACE) capsule 200 mg 2021-02 12:41: 25 Yes 200mg 200 mg, Oral, QDAILYPRN, Starting on 11/27/21 at 0741, Until Discontinu ed, Routine, Constipati on [facility] magnesium hydroxide (MILK OF MAGNESIA) 400 mg/5 mL suspension 30 mL 2021-02 12:41: 25 Yes 30mL 30 mL, Oral, QDAILYPRN, Starting on 11/27/21 at 0741, Until Discontinu ed, Routine, Constipati on [facility] benzocaine- menthol (DERMOPLAST ) 20-0.5 % topical spray 2021-02 12:41: 25 Yes Topical, PRN, Starting on 11/27/21 at 0741, Until Discontinu ed, Routine, Perineum discomfort [facility] calcium gluconate 100 mg/mL (10%) injection 1,000 mg 2021-02 12:40: 21 Yes 1000mg 1,000 mg, Slow IV Push, PRN - SEE INSTRUCTIO NS, Starting on Sun11/27/21 at 0740, Until Discontinu ed, Routine, magnesium toxicity [facility] magnesium sulfate 4 mEq/mL (50 %) injection 32.48 mEq 2021-02 12:40: 21 Yes 4g 32.48 mEq (4 g), Slow IV Push, PRN - SEE INSTRUCTIO NS, Starting on Sun11/27/21 at 0740, Until Discontinu ed, Routine, For seizure activity (patient not on magnesium sulfate) [facility] magnesium sulfate 4 mEq/mL (50 %) injection 16.24 mEq 2021-02 12:40: 21 Yes 2g 16.24 mEq (2 g), Slow IV Push, PRN - SEE INSTRUCTIO NS, 2 doses, Starting on Sun11/27/21 at 0740, Until Discontinu ed, Routine, For seizure activity (patient already on magnesium sulfate) [facility] labetaloL (NORMODYNE) injection 20 mg 2021-02 [...] Hypertensi ve Emergency in [Order 4 End] [facility] oxytocin (PITOCIN) 30 units in NS 500 mL IV infusion 2021-02 02:10: 24 11-27 12:40 :54 No 2mU/min at 2-40 mL/hr, IV Infusion, TITRATE, Starting on 11/26/21 at 2110, Until Doerun 11/27/21 at 0740, Routine [facility] penicillin g pot in dextrose 3 [...] ion of therapy: 72 hours [facility] fentaNYL-ro pivacaine 2 mcg/mL-0.1 % (PF) in NS 200 mL epidural infusion RTU 2021-02 20:46: 00 11-27 13:52 :31 No Epidural, ONCE INTRA PROCEDURE, Starting on 11/26/21 at 1546, Until Doerun 11/27/21 at 0852, Routine, Intra-op [facility] lidocaine-e pinephrine (XYLOCAINE W/EPINEPHRI NE) 1.5 %-1:200,000 injection 2021-02 20:43: 00 Yes Epidural, ONCE INTRA PROCEDURE, Starting on 11/26/21 at 1543, Until Discontinu ed, Routine, Intra-op [facility] penicillin g potassium 5 Million Units in NaCl 0.9% (NS) 100 mL MINI-BAG 2021-02 18:15: 00 11-26 19:13 :00 No 510 5 Million Units, IV Piggyback, ONCE, 1 dose, On 11/26/21 at 1315, Administer over 60 Minutes, 100 mL
Reas on for Anti-Infec tive: Empiric Non-Surgic al Prophylaxi s
Durat ion of therapy: 72 hours [facility] NaCl 0.9% (NS) IV infusion 1,000 mL 2021-02 008 18:00: 00 11-27 12:40 :54 No 1000mL at 50 mL/hr, IV Infusion, CONTINUOUS , Starting on 11/26/21 at 1300, Until 11/27/21 at 0740, Routine [facility] oxytocin (PITOCIN) 30 units in NS 500 mL IV infusion 2021-02 0 14:31: 25 11-27 02:11 :24 No 2mU/min at 2-40 mL/hr, IV Infusion, TITRATE, Starting on 11/26/21 at 0931, Until 11/26/21 at 2111, Routine [facility] FENTanyl PF (SUBLIMAZE (PF)) injection 100 mcg 2021-02 13:50: 58 11-27 12:40 :54 No 100ug 100 mcg, Slow IV Push, Q1HPRN, Starting on 11/26/21 at 0850, Until 11/27/21 at 0740, Routine, Pain (scale 4-6), Pain (scale 7-10) [facility] misoprostol (CYTOTEC) quarter-tab let 25 mcg 2021-02 13:45: 00 11-26 13:22 :00 No 25ug 25 mcg, Vaginal, ONCE, 1 dose, On 11/26/21 at 0845, Routine [facility] butalbital- acetaminoph en-caff (ESGIC) 50-325-40 mg tablet 1 tablet 2021-02 09:45: 00 11-26 08:57 :00 No 1{tbl} 1 tablet, Oral, ONCE NOW, 1 dose, On 11/26/21 at 0445, Routine [facility] magnesium sulfate in water for injection 20 gram/500 mL (4 %) IV infusion 2021-02 09:00: 00 Yes 2g/h 2 g/hr (50 mL/hr), IV Infusion, CONTINUOUS , Starting on 11/26/21 at 0400, Until Discontinu ed, Routine [facility] D5W 0.45% NaCl (1/2NS) IV infusion 1,000 mL 2021-02 09:00: 00 11-27 12:40 :54 No 1000mL at 75 mL/hr, 1,000 mL, IV Infusion, CONTINUOUS , Starting on 11/26/21 at 0400, Until 11/27/21 at 0740, Routine [facility] promethazin e 6.25 mg/5 mL solution 9-21 00:00: 00 11-28 00:00 :00 No [id number] 12.5mg Take 10 mL by mouth every 4 (four) hours as needed for Nausea and Vomiting (N/V). [facility] promethazin e 6.25 mg/5 mL solution -30 00:00: 00 11-09 00:00 :00 No [id number] 12.5mg Take 10 mL by mouth every 4 (four) hours as needed for Nausea and Vomiting (N/V). [facility] promethazin e 6.25 mg/5 mL solution 8-11 00:00: 00 10-18 00:00 :00 No [id number] 12.5mg Take 10 mL by mouth every 4 (four) hours as needed for Nausea and Vomiting (N/V). [facility] promethazin e 6.25 mg/5 mL solution 6-23 00:00: 00 09-15 00:00 :00 No [id number] 12.5mg Take 10 mL by mouth every 4 (four) hours as needed for Nausea and Vomiting (N/V). [facility] proMETHazin e 25 mg tablet 5-29 00:00: 00 09-15 00:00 :00 No [id number] 25mg Take 1 tablet by mouth every 6 (six) hours as needed for Nausea and Vomiting (N/V). [facility] promethazin e 6.25 mg/5 mL solution 5-06 00:00: 00 06-29 00:00 :00 No [id number] 12.5mg Take 10 mL by mouth every 4 (four) hours as needed for Nausea and Vomiting (N/V). [facility] vit 33-iron-fol ic-dha (SELECT-OB + DHA) 29 mg iron-1 mg -250 mg combo pack 5-05 00:00: 00 07-17 00:00 :00 No [id number] 1{packe t} Take 1 Packet by mouth daily. [facility] proMETHazin e 25 mg suppository 06-22 00:00: 00 09-15 00:00 :00 No [id number] 25mg Insert 1 Suppositor y into rectum every 4 (four) hours as needed for Nausea and Vomiting (N/V). [facility] Immunizations Ordered Immunization Name Filled Immunization Name Date Status Comments Source HPV9 2022-12-25 00:00:00 Completed [facility] HPV9 2022-12-25 00:00:00 Completed [facility] HPV9 2022-12-25 00:00:00 Completed [facility] HPV9 2022-12-25 00:00:00 Completed [facility] HPV9 2022-12-25 00:00:00 Completed [facility] HPV9 2022-12-25 00:00:00 Completed [facility] HPV9 2022-12-25 00:00:00 Completed [facility] TDAP 2021-09-29 00:00:00 Completed [facility] TDAP 2021-09-29 00:00:00 Completed [facility] TDAP 2021-09-29 00:00:00 Completed [facility] TDAP 2021-09-29 00:00:00 Completed [facility] TDAP 2021-09-29 00:00:00 Completed [facility] TDAP 2021-09-29 00:00:00 Completed [facility] TDAP 2021-09-29 00:00:00 Completed [facility] TDAP 2021-09-29 00:00:00 Completed [facility] TDAP 2021-09-29 00:00:00 Completed [facility] TDAP 2021-09-29 00:00:00 Completed [facility] TDAP 2021-09-29 00:00:00 Completed [facility] TDAP 2021-09-29 00:00:00 Completed [facility] TDAP 2021-09-29 00:00:00 Completed [facility] TDAP 2021-09-29 00:00:00 Completed [facility] TDAP 2021-09-29 00:00:00 Completed [facility] TDAP 2021-09-29 00:00:00 Completed [facility] TDAP 2021-09-29 00:00:00 Completed [facility] TDAP 2021-09-29 00:00:00 Completed [facility] TDAP 2021-09-29 00:00:00 Completed [facility] TDAP 2021-09-29 00:00:00 Completed [facility] TDAP 2021-09-29 00:00:00 Completed [facility] TDAP 2021-09-29 00:00:00 Completed [facility] TDAP 2021-09-29 00:00:00 Completed [facility] TDAP 2021-09-29 00:00:00 Completed [facility] TDAP 2009-10-06 00:00:00 Completed HEPATITIS A 2009-10-06 [...] 00:00:00 Completed TDAP Unknown Completed [facility] TDAP Unknown Completed [facility] TDAP Unknown Completed [facility] TDAP Unknown Completed [facility] TDAP Unknown Completed [facility] TDAP Unknown Completed [facility] DTaP, Unspecified Formulation Unknown Completed [facility] HEPATITIS A Unknown Completed [facility] Hep B, Adol or Pedi Dosage Unknown Completed [facility] HIB 4 Dose Schedule Unknown Completed [facility] Haemophilus influenzae type b vaccine, conjugate unspecified formulation Unknown Completed [facility] HPV Unknown Completed [facility] Meningococcal Polysaccharide (groups A, C, Y and W-135) conjugate vaccine (MCV4P) Unknown Completed [facility] MMR Unknown Completed [facility] IPV Unknown Completed [facility] Poliovirus, Live, Oral, Trivalent Unknown Completed [facility] HPV9 Unknown Completed [facility] HEPATITIS A Unknown Completed [facility] Haemophilus influenzae type b vaccine, conjugate unspecified formulation Unknown Completed [facility] HPV Unknown Completed [facility] Meningococcal Polysaccharide (groups A, C, Y and W-135) conjugate vaccine (MCV4P) Unknown Completed [facility] HPV9 Unknown Completed [facility] TDAP Unknown Completed [facility] DTaP, Unspecified Formulation Unknown Completed [facility] Hep B, Adol or Pedi Dosage Unknown Completed [facility] HIB 4 Dose Schedule Unknown Completed [facility] MMR Unknown Completed [facility] IPV Unknown Completed [facility] Poliovirus, Live, Oral, Trivalent Unknown Completed [facility] TDAP Unknown Completed [facility] DTaP, Unspecified Formulation Unknown Completed [facility] HEPATITIS A Unknown Completed [facility] Hep B, Adol or Pedi Dosage Unknown Completed [facility] HIB 4 Dose Schedule Unknown Completed [facility] Haemophilus influenzae type b vaccine, conjugate unspecified formulation Unknown Completed [facility] HPV Unknown Completed [facility] Meningococcal Polysaccharide (groups A, C, Y and W-135) conjugate vaccine (MCV4P) Unknown Completed [facility] MMR Unknown Completed [facility] IPV Unknown Completed [facility] Poliovirus, Live, Oral, Trivalent Unknown Completed [facility] HPV9 Unknown Completed [facility] TDAP Unknown Completed [facility] DTaP, Unspecified Formulation Unknown Completed [facility] HEPATITIS A Unknown Completed [facility] Hep B, Adol or Pedi Dosage Unknown Completed [facility] HIB 4 Dose Schedule Unknown Completed [facility] Haemophilus influenzae type b vaccine, conjugate unspecified formulation Unknown Completed [facility] HPV Unknown Completed [facility] Meningococcal Polysaccharide (groups A, C, Y and W-135) conjugate vaccine (MCV4P) Unknown Completed [facility] MMR Unknown Completed [facility] IPV Unknown Completed [facility] Poliovirus, Live, Oral, Trivalent Unknown Completed [facility] HPV9 Unknown Completed [facility] TDAP Unknown Completed [facility] DTaP, Unspecified Formulation Unknown Completed [facility] HEPATITIS A Unknown Completed [facility] Hep B, Adol or Pedi Dosage Unknown Completed [facility] HIB 4 Dose Schedule Unknown Completed [facility] Haemophilus influenzae type b vaccine, conjugate unspecified formulation Unknown Completed [facility] HPV Unknown Completed [facility] Meningococcal Polysaccharide (groups A, C, Y and W-135) conjugate vaccine (MCV4P) Unknown Completed [facility] MMR Unknown Completed [facility] IPV Unknown Completed [facility] Poliovirus, Live, Oral, Trivalent Unknown Completed [facility] HPV9 Unknown Completed [facility] TDAP Unknown Completed [facility] DTaP, Unspecified Formulation Unknown Completed [facility] HEPATITIS A Unknown Completed [facility] Hep B, Adol or Pedi Dosage Unknown Completed [facility] HIB 4 Dose Schedule Unknown Completed [facility] Haemophilus influenzae type b vaccine, conjugate unspecified formulation Unknown Completed [facility] HPV Unknown Completed [facility] Meningococcal Polysaccharide (groups A, C, Y and W-135) conjugate vaccine (MCV4P) Unknown Completed [facility] MMR Unknown Completed [facility] IPV Unknown Completed [facility] Poliovirus, Live, Oral, Trivalent Unknown Completed [facility] HPV9 Unknown Completed [facility] HEPATITIS A Unknown Completed [facility] Haemophilus influenzae type b vaccine, conjugate unspecified formulation Unknown Completed [facility] HPV Unknown Completed [facility] Meningococcal Polysaccharide (groups A, C, Y and W-135) conjugate vaccine (MCV4P) Unknown Completed [facility] HPV9 Unknown Completed [facility] TDAP Unknown Completed [facility] DTaP, Unspecified Formulation Unknown Completed [facility] Hep B, Adol or Pedi Dosage Unknown Completed [facility] HIB 4 Dose Schedule Unknown Completed [facility] MMR Unknown Completed [facility] IPV Unknown Completed [facility] Poliovirus, Live, Oral, Trivalent Unknown Completed [facility] TDAP Unknown Completed [facility] DTaP, Unspecified Formulation Unknown Completed [facility] HEPATITIS A Unknown Completed [facility] Hep B, Adol or Pedi Dosage Unknown Completed [facility] HIB 4 Dose Schedule Unknown Completed [facility] Haemophilus influenzae type b vaccine, conjugate unspecified formulation Unknown Completed [facility] HPV Unknown Completed [facility] Meningococcal Polysaccharide (groups A, C, Y and W-135) conjugate vaccine (MCV4P) Unknown Completed [facility] MMR Unknown Completed [facility] IPV Unknown Completed [facility] Poliovirus, Live, Oral, Trivalent Unknown Completed [facility] HPV9 Unknown Completed [facility] TDAP Unknown Completed [facility] DTaP, Unspecified Formulation Unknown Completed [facility] HEPATITIS A Unknown Completed [facility] Hep B, Adol or Pedi Dosage Unknown Completed [facility] HIB 4 Dose Schedule Unknown Completed [facility] Haemophilus influenzae type b vaccine, conjugate unspecified formulation Unknown Completed [facility] HPV Unknown Completed [facility] Meningococcal Polysaccharide (groups A, C, Y and W-135) conjugate vaccine (MCV4P) Unknown Completed [facility] MMR Unknown Completed [facility] IPV Unknown Completed [facility] Poliovirus, Live, Oral, Trivalent Unknown Completed [facility] HPV9 Unknown Completed [facility] TDAP Unknown Completed [facility] DTaP, Unspecified Formulation Unknown Completed [facility] HEPATITIS A Unknown Completed [facility] Hep B, Adol or Pedi Dosage Unknown Completed [facility] HIB 4 Dose Schedule Unknown Completed [facility] Haemophilus influenzae type b vaccine, conjugate unspecified formulation Unknown Completed [facility] HPV Unknown Completed [facility] Meningococcal Polysaccharide (groups A, C, Y and W-135) conjugate vaccine (MCV4P) Unknown Completed [facility] MMR Unknown Completed [facility] IPV Unknown Completed [facility] Poliovirus, Live, Oral, Trivalent Unknown Completed [facility] HPV9 Unknown Completed [facility] TDAP Unknown Completed [facility] DTaP, Unspecified Formulation Unknown Completed [facility] HEPATITIS A Unknown Completed [facility] Hep B, Adol or Pedi Dosage Unknown Completed [facility] HIB 4 Dose Schedule Unknown Completed [facility] Haemophilus influenzae type b vaccine, conjugate unspecified formulation Unknown Completed [facility] HPV Unknown Completed [facility] Meningococcal Polysaccharide (groups A, C, Y and W-135) conjugate vaccine (MCV4P) Unknown Completed [facility] MMR Unknown Completed [facility] IPV Unknown Completed [facility] Poliovirus, Live, Oral, Trivalent Unknown Completed [facility] HPV9 Unknown Completed [facility] HEPATITIS A Unknown Completed [facility] Haemophilus influenzae type b vaccine, conjugate unspecified formulation Unknown Completed [facility] HPV Unknown Completed [facility] Meningococcal Polysaccharide (groups A, C, Y and W-135) conjugate vaccine (MCV4P) Unknown Completed [facility] HPV9 Unknown Completed [facility] TDAP Unknown Completed [facility] DTaP, Unspecified Formulation Unknown Completed [facility] Hep B, Adol or Pedi Dosage Unknown Completed [facility] HIB 4 Dose Schedule Unknown Completed [facility] MMR Unknown Completed [facility] IPV Unknown Completed [facility] Poliovirus, Live, Oral, Trivalent Unknown Completed [facility] TDAP Unknown Completed [facility] DTaP, Unspecified Formulation Unknown Completed [facility] HEPATITIS A Unknown Completed [facility] Hep B, Adol or Pedi Dosage Unknown Completed [facility] HIB 4 Dose Schedule Unknown Completed [facility] Haemophilus influenzae type b vaccine, conjugate unspecified formulation Unknown Completed [facility] HPV Unknown Completed [facility] Meningococcal Polysaccharide (groups A, C, Y and W-135) conjugate vaccine (MCV4P) Unknown Completed [facility] MMR Unknown Completed [facility] IPV Unknown Completed [facility] Poliovirus, Live, Oral, Trivalent Unknown Completed [facility] HPV9 Unknown Completed [facility] TDAP Unknown Completed [facility] DTaP, Unspecified Formulation Unknown Completed [facility] HEPATITIS A Unknown Completed [facility] Hep B, Adol or Pedi Dosage Unknown Completed [facility] HIB 4 Dose Schedule Unknown Completed [facility] Haemophilus influenzae type b vaccine, conjugate unspecified formulation Unknown Completed [facility] HPV Unknown Completed [facility] Meningococcal Polysaccharide (groups A, C, Y and W-135) conjugate vaccine (MCV4P) Unknown Completed [facility] MMR Unknown Completed [facility] IPV Unknown Completed [facility] Poliovirus, Live, Oral, Trivalent Unknown Completed [facility] HPV9 Unknown Completed [facility] TDAP Unknown Completed [facility] DTaP, Unspecified Formulation Unknown Completed [facility] HEPATITIS A Unknown Completed [facility] Hep B, Adol or Pedi Dosage Unknown Completed [facility] HIB 4 Dose Schedule Unknown Completed [facility] Haemophilus influenzae type b vaccine, conjugate unspecified formulation Unknown Completed [facility] HPV Unknown Completed [facility] Meningococcal Polysaccharide (groups A, C, Y and W-135) conjugate vaccine (MCV4P) Unknown Completed [facility] MMR Unknown Completed [facility] IPV Unknown Completed [facility] Poliovirus, Live, Oral, Trivalent Unknown Completed [facility] HPV9 Unknown Completed [facility] TDAP Unknown Completed [facility] DTaP, Unspecified Formulation Unknown Completed [facility] HEPATITIS A Unknown Completed [facility] Hep B, Adol or Pedi Dosage Unknown Completed [facility] HIB 4 Dose Schedule Unknown Completed [facility] Haemophilus influenzae type b vaccine, conjugate unspecified formulation Unknown Completed [facility] HPV Unknown Completed [facility] Meningococcal Polysaccharide (groups A, C, Y and W-135) conjugate vaccine (MCV4P) Unknown Completed [facility] MMR Unknown Completed [facility] IPV Unknown Completed [facility] Poliovirus, Live, Oral, Trivalent Unknown Completed [facility] HPV9 Unknown Completed [facility] HEPATITIS A Unknown Completed [facility] Haemophilus influenzae type b vaccine, conjugate unspecified formulation Unknown Completed [facility] HPV Unknown Completed [facility] Meningococcal Polysaccharide (groups A, C, Y and W-135) conjugate vaccine (MCV4P) Unknown Completed [facility] HPV9 Unknown Completed [facility] TDAP Unknown Completed [facility] DTaP, Unspecified Formulation Unknown Completed [facility] HEPATITIS A Unknown Completed [facility] Hep B, Adol or Pedi Dosage Unknown Completed [facility] HIB 4 Dose Schedule Unknown Completed [facility] Haemophilus influenzae type b vaccine, conjugate unspecified formulation Unknown Completed [facility] HPV Unknown Completed [facility] Meningococcal Polysaccharide (groups A, C, Y and W-135) conjugate vaccine (MCV4P) Unknown Completed [facility] MMR Unknown Completed [facility] IPV Unknown Completed [facility] Poliovirus, Live, Oral, Trivalent Unknown Completed [facility] HPV9 Unknown Completed [facility] TDAP Unknown Completed [facility] DTaP, Unspecified Formulation Unknown Completed [facility] HEPATITIS A Unknown Completed [facility] Hep B, Adol or Pedi Dosage Unknown Completed [facility] HIB 4 Dose Schedule Unknown Completed [facility] Haemophilus influenzae type b vaccine, conjugate unspecified formulation Unknown Completed [facility] HPV Unknown Completed [facility] Meningococcal Polysaccharide (groups A, C, Y and W-135) conjugate vaccine (MCV4P) Unknown Completed [facility] MMR Unknown Completed [facility] IPV Unknown Completed [facility] Poliovirus, Live, Oral, Trivalent Unknown Completed [facility] HPV9 Unknown Completed [facility] TDAP Unknown Completed [facility] DTaP, Unspecified Formulation Unknown Completed [facility] HEPATITIS A Unknown Completed [facility] Hep B, Adol or Pedi Dosage Unknown Completed [facility] HIB 4 Dose Schedule Unknown Completed [facility] Haemophilus influenzae type b vaccine, conjugate unspecified formulation Unknown Completed [facility] HPV Unknown Completed [facility] Meningococcal Polysaccharide (groups A, C, Y and W-135) conjugate vaccine (MCV4P) Unknown Completed [facility] MMR Unknown Completed [facility] IPV Unknown Completed [facility] Poliovirus, Live, Oral, Trivalent Unknown Completed [facility] HPV9 Unknown Completed [facility] TDAP Unknown Completed [facility] DTaP, Unspecified Formulation Unknown Completed [facility] HEPATITIS A Unknown Completed [facility] Hep B, Adol or Pedi Dosage Unknown Completed [facility] HIB 4 Dose Schedule Unknown Completed [facility] Haemophilus influenzae type b vaccine, conjugate unspecified formulation Unknown Completed [facility] HPV Unknown Completed [facility] Meningococcal Polysaccharide (groups A, C, Y and W-135) conjugate vaccine (MCV4P) Unknown Completed [facility] MMR Unknown Completed [facility] IPV Unknown Completed [facility] Poliovirus, Live, Oral, Trivalent Unknown Completed [facility] HPV9 Unknown Completed [facility] TDAP Unknown Completed [facility] DTaP, Unspecified Formulation Unknown Completed [facility] Hep B, Adol or Pedi Dosage Unknown Completed [facility] HIB 4 Dose Schedule Unknown Completed [facility] MMR Unknown Completed [facility] IPV Unknown Completed [facility] Poliovirus, Live, Oral, Trivalent Unknown Completed [facility] TDAP Unknown Completed [facility] DTaP, Unspecified Formulation Unknown Completed [facility] HEPATITIS A Unknown Completed [facility] Hep B, Adol or Pedi Dosage Unknown Completed [facility] HIB 4 Dose Schedule Unknown Completed [facility] Haemophilus influenzae type b vaccine, conjugate unspecified formulation Unknown Completed [facility] HPV Unknown Completed [facility] Meningococcal Polysaccharide (groups A, C, Y and W-135) conjugate vaccine (MCV4P) Unknown Completed [facility] MMR Unknown Completed [facility] IPV Unknown Completed [facility] Poliovirus, Live, Oral, Trivalent Unknown Completed [facility] HPV9 Unknown Completed [facility] TDAP Unknown Completed [facility] DTaP, Unspecified Formulation Unknown Completed [facility] HEPATITIS A Unknown Completed [facility] Hep B, Adol or Pedi Dosage Unknown Completed [facility] HIB 4 Dose Schedule Unknown Completed [facility] Haemophilus influenzae type b vaccine, conjugate unspecified formulation Unknown Completed [facility] HPV Unknown Completed [facility] Meningococcal Polysaccharide (groups A, C, Y and W-135) conjugate vaccine (MCV4P) Unknown Completed [facility] MMR Unknown Completed [facility] IPV Unknown Completed [facility] Poliovirus, Live, Oral, Trivalent Unknown Completed [facility] HPV9 Unknown Completed [facility] TDAP Unknown Completed [facility] DTaP, Unspecified Formulation Unknown Completed [facility] HEPATITIS A Unknown Completed [facility] Hep B, Adol or Pedi Dosage Unknown Completed [facility] HIB 4 Dose Schedule Unknown Completed [facility] Haemophilus influenzae type b vaccine, conjugate unspecified formulation Unknown Completed [facility] HPV Unknown Completed [facility] Meningococcal Polysaccharide (groups A, C, Y and W-135) conjugate vaccine (MCV4P) Unknown Completed [facility] MMR Unknown Completed [facility] IPV Unknown Completed [facility] Poliovirus, Live, Oral, Trivalent Unknown Completed [facility] HPV9 Unknown Completed [facility] TDAP Unknown Completed [facility] DTaP, Unspecified Formulation Unknown Completed [facility] HEPATITIS A Unknown Completed [facility] Hep B, Adol or Pedi Dosage Unknown Completed [facility] HIB 4 Dose Schedule Unknown Completed [facility] Haemophilus influenzae type b vaccine, conjugate unspecified formulation Unknown Completed [facility] HPV Unknown Completed [facility] Meningococcal Polysaccharide (groups A, C, Y and W-135) conjugate vaccine (MCV4P) Unknown Completed [facility] MMR Unknown Completed [facility] IPV Unknown Completed [facility] Poliovirus, Live, Oral, Trivalent Unknown Completed [facility] HPV9 Unknown Completed [facility] TDAP Unknown Completed [facility] DTaP, Unspecified Formulation Unknown Completed [facility] HEPATITIS A Unknown Completed [facility] Hep B, Adol or Pedi Dosage Unknown Completed [facility] HIB 4 Dose Schedule Unknown Completed [facility] Haemophilus influenzae type b vaccine, conjugate unspecified formulation Unknown Completed [facility] HPV Unknown Completed [facility] Meningococcal Polysaccharide (groups A, C, Y and W-135) conjugate vaccine (MCV4P) Unknown Completed [facility] MMR Unknown Completed [facility] IPV Unknown Completed [facility] Poliovirus, Live, Oral, Trivalent Unknown Completed [facility] HPV9 Unknown Completed [facility] TDAP Unknown Completed [facility] DTaP, Unspecified Formulation Unknown Completed [facility] HEPATITIS A Unknown Completed [facility] Hep B, Adol or Pedi Dosage Unknown Completed [facility] HIB 4 Dose Schedule Unknown Completed [facility] Haemophilus influenzae type b vaccine, conjugate unspecified formulation Unknown Completed [facility] HPV Unknown Completed [facility] Meningococcal Polysaccharide (groups A, C, Y and W-135) conjugate vaccine (MCV4P) Unknown Completed [facility] MMR Unknown Completed [facility] IPV Unknown Completed [facility] Poliovirus, Live, Oral, Trivalent Unknown Completed [facility] HPV9 Unknown Completed [facility] TDAP Unknown Completed [facility] DTaP, Unspecified Formulation Unknown Completed [facility] HEPATITIS A Unknown Completed [facility] Hep B, Adol or Pedi Dosage Unknown Completed [facility] HIB 4 Dose Schedule Unknown Completed [facility] Haemophilus influenzae type b vaccine, conjugate unspecified formulation Unknown Completed [facility] HPV Unknown Completed [facility] Meningococcal Polysaccharide (groups A, C, Y and W-135) conjugate vaccine (MCV4P) Unknown Completed [facility] MMR Unknown Completed [facility] IPV Unknown Completed [facility] Poliovirus, Live, Oral, Trivalent Unknown Completed [facility] HPV9 Unknown Completed [facility] TDAP Unknown Completed [facility] DTaP, Unspecified Formulation Unknown Completed [facility] HEPATITIS A Unknown Completed [facility] Hep B, Adol or Pedi Dosage Unknown Completed [facility] HIB 4 Dose Schedule Unknown Completed [facility] Haemophilus influenzae type b vaccine, conjugate unspecified formulation Unknown Completed [facility] HPV Unknown Completed [facility] Meningococcal Polysaccharide (groups A, C, Y and W-135) conjugate vaccine (MCV4P) Unknown Completed [facility] MMR Unknown Completed [facility] IPV Unknown Completed [facility] Poliovirus, Live, Oral, Trivalent Unknown Completed [facility] HPV9 Unknown Completed [facility] HEPATITIS A Unknown Completed [facility] Haemophilus influenzae type b vaccine, conjugate unspecified formulation Unknown Completed [facility] HPV Unknown Completed [facility] Meningococcal Polysaccharide (groups A, C, Y and W-135) conjugate vaccine (MCV4P) Unknown Completed [facility] HPV9 Unknown Completed [facility] TDAP Unknown Completed [facility] DTaP, Unspecified Formulation Unknown Completed [facility] Hep B, Adol or Pedi Dosage Unknown Completed [facility] HIB 4 Dose Schedule Unknown Completed [facility] MMR Unknown Completed [facility] IPV Unknown Completed [facility] Poliovirus, Live, Oral, Trivalent Unknown Completed [facility] HEPATITIS A Unknown Completed [facility] Haemophilus influenzae type b vaccine, conjugate unspecified formulation Unknown Completed [facility] HPV Unknown Completed [facility] Meningococcal Polysaccharide (groups A, C, Y and W-135) conjugate vaccine (MCV4P) Unknown Completed [facility] HPV9 Unknown Completed [facility] TDAP Unknown Completed [facility] DTaP, Unspecified Formulation Unknown Completed [facility] Hep B, Adol or Pedi Dosage Unknown Completed [facility] HIB 4 Dose Schedule Unknown Completed [facility] MMR Unknown Completed [facility] IPV Unknown Completed [facility] Poliovirus, Live, Oral, Trivalent Unknown Completed [facility] HEPATITIS A Unknown Completed [facility] Haemophilus influenzae type b vaccine, conjugate unspecified formulation Unknown Completed [facility] HPV Unknown Completed [facility] Meningococcal Polysaccharide (groups A, C, Y and W-135) conjugate vaccine (MCV4P) Unknown Completed [facility] HPV9 Unknown Completed [facility] TDAP Unknown Completed [facility] DTaP, Unspecified Formulation Unknown Completed [facility] Hep B, Adol or Pedi Dosage Unknown Completed [facility] HIB 4 Dose Schedule Unknown Completed [facility] MMR Unknown Completed [facility] IPV Unknown Completed [facility] Poliovirus, Live, Oral, Trivalent Unknown Completed [facility] TDAP Unknown Completed [facility] DTaP, Unspecified Formulation Unknown Completed [facility] HEPATITIS A Unknown Completed [facility] Hep B, Adol or Pedi Dosage Unknown Completed [facility] HIB 4 Dose Schedule Unknown Completed [facility] Haemophilus influenzae type b vaccine, conjugate unspecified formulation Unknown Completed [facility] HPV Unknown Completed [facility] Meningococcal Polysaccharide (groups A, C, Y and W-135) conjugate vaccine (MCV4P) Unknown Completed [facility] MMR Unknown Completed [facility] IPV Unknown Completed [facility] Poliovirus, Live, Oral, Trivalent Unknown Completed [facility] HPV9 Unknown Completed [facility] TDAP Unknown Completed [facility] DTaP, Unspecified Formulation Unknown Completed [facility] HEPATITIS A Unknown Completed [facility] Hep B, Adol or Pedi Dosage Unknown Completed [facility] HIB 4 Dose Schedule Unknown Completed [facility] Haemophilus influenzae type b vaccine, conjugate unspecified formulation Unknown Completed [facility] HPV Unknown Completed [facility] Meningococcal Polysaccharide (groups A, C, Y and W-135) conjugate vaccine (MCV4P) Unknown Completed [facility] MMR Unknown Completed [facility] IPV Unknown Completed [facility] Poliovirus, Live, Oral, Trivalent Unknown Completed [facility] HPV9 Unknown Completed [facility] TDAP Unknown Completed [facility] DTaP, Unspecified Formulation Unknown Completed [facility] HEPATITIS A Unknown Completed [facility] Hep B, Adol or Pedi Dosage Unknown Completed [facility] HIB 4 Dose Schedule Unknown Completed [facility] Haemophilus influenzae type b vaccine, conjugate unspecified formulation Unknown Completed [facility] HPV Unknown Completed [facility] Meningococcal Polysaccharide (groups A, C, Y and W-135) conjugate vaccine (MCV4P) Unknown Completed [facility] MMR Unknown Completed [facility] IPV Unknown Completed [facility] Poliovirus, Live, Oral, Trivalent Unknown Completed [facility] HPV9 Unknown Completed [facility] TDAP Unknown Completed [facility] DTaP, Unspecified Formulation Unknown Completed [facility] HEPATITIS A Unknown Completed [facility] Hep B, Adol or Pedi Dosage Unknown Completed [facility] HIB 4 Dose Schedule Unknown Completed [facility] Haemophilus influenzae type b vaccine, conjugate unspecified formulation Unknown Completed [facility] HPV Unknown Completed [facility] Meningococcal Polysaccharide (groups A, C, Y and W-135) conjugate vaccine (MCV4P) Unknown Completed [facility] MMR Unknown Completed [facility] IPV Unknown Completed [facility] Poliovirus, Live, Oral, Trivalent Unknown Completed [facility] HPV9 Unknown Completed [facility] TDAP Unknown Completed [facility] DTaP, Unspecified Formulation Unknown Completed [facility] HEPATITIS A Unknown Completed [facility] Hep B, Adol or Pedi Dosage Unknown Completed [facility] HIB 4 Dose Schedule Unknown Completed [facility] Haemophilus influenzae type b vaccine, conjugate unspecified formulation Unknown Completed [facility] HPV Unknown Completed [facility] Meningococcal Polysaccharide (groups A, C, Y and W-135) conjugate vaccine (MCV4P) Unknown Completed [facility] MMR Unknown Completed [facility] IPV Unknown Completed [facility] Poliovirus, Live, Oral, Trivalent Unknown Completed [facility] HPV9 Unknown Completed [facility] Vital Signs Vital Name Observation Time Observation Value Comments S jeremiasce Systolic blood pressure 2024-04-16 17:18:00 110 mm[Hg] [facility] Diastolic blood pressure 2024-04-16 17:18:00 79 mm[Hg] [facility] Heart rate 2024-04-16 17:18:00 67 /min [facility] Body temperature 2024-04-16 17:18:00 36.17 Ava [facility] Respiratory rate 2024-04-16 17:18:00 18 /min [facility] Body height 2024-04-16 17:18:00 165.1 cm [facility] Body weight 2024-04-16 17:18:00 112.81 kg [facility] BMI 2024-04-16 17:18:00 41.39 kg/m2 [facility] Oxygen saturation in Arterial blood by Pulse oximetry 2024-04-16 17:18:00 100 /min [facility] Systolic blood pressure 2024-04-12 11:05:00 138 mm[Hg] [facility] Diastolic blood pressure 2024-04-12 11:05:00 90 mm[Hg] [facility] Heart rate 2024-04-12 11:05:00 92 /min [facility] Body temperature 2024-04-12 11:05:00 36.78 Ava [facility] Respiratory rate 2024-04-12 11:05:00 17 /min [facility] Oxygen saturation in Arterial blood by Pulse oximetry 2024-04-12 11:05:00 98 /min [facility] Body height 2024-04-12 10:30:00 165.1 cm [facility] Body weight 2024-04-12 10:30:00 108.863 kg [facility] BMI 2024-04-12 10:30:00 39.94 kg/m2 [facility] Systolic blood pressure 2024-03-16 08:17:00 152 mm[Hg] [facility] Diastolic blood pressure 2024-03-16 08:17:00 114 mm[Hg] [facility] Heart rate 2024-03-16 08:17:00 114 /min [facility] Body temperature 2024-03-16 08:17:00 36.78 Ava [facility] Respiratory rate 2024-03-16 08:17:00 20 /min [facility] Body height 2024-03-16 08:17:00 165.1 cm [facility] Body weight 2024-03-16 08:17:00 104.781 kg [facility] BMI 2024-03-16 08:17:00 38.44 kg/m2 [facility] Oxygen saturation in Arterial blood by Pulse oximetry 2024-03-16 08:17:00 100 /min [facility] Systolic blood pressure 2024-02-27 16:52:00 118 mm[Hg] [facility] Diastolic blood pressure 2024-02-27 16:52:00 82 mm[Hg] [facility] Heart rate 2024-02-27 16:52:00 113 /min [facility] Body temperature 2024-02-27 16:52:00 36.28 Ava [facility] Respiratory rate 2024-02-27 16:52:00 18 /min [facility] Body height 2024-02-27 16:52:00 166.4 cm [facility] Body weight 2024-02-27 16:52:00 117.164 kg [facility] acute [facility] BMI 2024-02-27 16:52:00 42.33 kg/m2 [facility] acute hospital Oxygen saturation in Arterial blood by Pulse oximetry 2024-02-27 16:52:00 99 /min [facility] Systolic blood pressure 2024-02-22 08:00:00 172 mm[Hg] [facility] Diastolic blood pressure 2024-02-22 08:00:00 90 mm[Hg] [facility] Heart rate 2024-02-22 08:00:00 89 /min [facility] Body temperature 2024-02-22 08:00:00 36.89 Ava [facility] Respiratory rate 2024-02-22 08:00:00 20 /min [facility] Oxygen saturation in Arterial blood by Pulse oximetry 2024-02-22 08:00:00 100 /min [facility] Body height 2024-02-22 05:52:00 165.1 cm [facility] Body weight 2024-02-22 05:52:[address] [facility] BMI 2024-02-22 05:52:00 39.94 kg/m2 [facility] Systolic blood pressure 2024-01-29 19:50:00 125 mm[Hg] [facility] Diastolic blood pressure 2024-01-29 19:50:00 85 mm[Hg] [facility] Heart rate 2024-01-29 19:50:00 103 /min [facility] Respiratory rate 2024-01-29 19:50:00 15 /min [facility] Oxygen saturation in Arterial blood by Pulse oximetry 2024-01-29 19:50:00 96 /min [facility] Body temperature 2024-01-29 18:30:00 36.33 Ava [facility] Body height 2024-01-21 21:15:[address] [facility] Body weight 2024-01-21 21:15:[address] [facility] BMI 2024-01-21 21:15:00 44.93 kg/m2 [facility] Systolic blood pressure 2024-01-29 18:35:00 127 mm[Hg] [facility] Diastolic blood pressure 2024-01-29 18:35:00 82 mm[Hg] [facility] Heart rate 2024-01-29 18:35:00 114 /min [facility] Respiratory rate 2024-01-29 18:35:00 18 /min [facility] Oxygen saturation in Arterial blood by Pulse oximetry 2024-01-29 18:35:00 100 /min [facility] Body temperature 2024-01-29 18:30:00 36.33 Ava [facility] Body height 2024-01-21 21:15:[address] [facility] Body weight 2024-01-21 21:15:[address] [facility] BMI 2024-01-21 21:15:00 44.93 kg/m2 [facility] Systolic blood pressure 2024-01-12 11:25:00 156 mm[Hg] [facility] Diastolic blood pressure 2024-01-12 11:25:00 110 mm[Hg] [facility] Respiratory rate 2024-01-12 11:25:00 12 /min [facility] Oxygen saturation in Arterial blood by Pulse oximetry 2024-01-12 11:25:00 97 /min [facility] Heart rate 2024-01-12 11:15:00 88 /min [facility] Body temperature 2024-01-12 09:59:00 36.5 Ava [facility] Body height 2024-01-12 09:59:00 165.1 cm [facility] Body weight 2024-01-12 09:59:00 122.471 kg [facility] BMI 2024-01-12 09:59:00 44.93 kg/m2 [facility] Systolic blood pressure 2024-01-07 17:05:00 136 mm[Hg] [facility] Diastolic blood pressure 2024-01-07 17:05:00 99 mm[Hg] [facility] Heart rate 2024-01-07 17:05:00 109 /min [facility] Oxygen saturation in Arterial blood by Pulse oximetry 2024-01-07 17:05:00 100 /min [facility] Body temperature 2024-01-07 17:02:00 36.39 Ava [facility] Respiratory rate 2024-01-07 17:02:00 18 /min [facility] Body height 2024-01-07 17:02:00 165.1 cm [facility] Body weight 2024-01-07 17:02:00 122.471 kg [facility] BMI 2024-01-07 17:02:00 44.93 kg/m2 [facility] Systolic blood pressure 2024-01-03 17:27:00 111 mm[Hg] [facility] Diastolic blood pressure 2024-01-03 17:27:00 77 mm[Hg] [facility] Heart rate 2024-01-03 17:27:00 99 /min [facility] Body temperature 2024-01-03 17:27:00 36.5 Ava [facility] Respiratory rate 2024-01-03 17:27:00 18 /min [facility] Body height 2024-01-03 17:27:00 165.1 cm [facility] Body weight 2024-01-03 17:27:00 120.203 kg [facility] BMI 2024-01-03 17:27:00 44.10 kg/m2 [facility] Oxygen saturation in Arterial blood by Pulse oximetry 2024-01-03 17:27:00 99 /min [facility] Systolic blood pressure 2023-12-24 17:35:00 118 mm[Hg] [facility] Diastolic blood pressure 2023-12-24 17:35:00 80 mm[Hg] [facility] Heart rate 2023-12-24 17:35:00 90 /min [facility] Respiratory rate 2023-12-24 17:35:00 15 /min [facility] Oxygen saturation in Arterial blood by Pulse oximetry 2023-12-24 17:35:00 96 /min [facility] Body temperature 2023-12-24 17:05:00 36 Ava [facility] Body height 2023-12-24 16:37:00 165.1 cm [facility] Body weight 2023-12-24 16:37:00 122.154 kg [facility] acute [facility] BMI 2023-12-24 16:37:00 44.81 kg/m2 [facility] Systolic blood pressure 2023-12-24 17:05:00 100 mm[Hg] [facility] Diastolic blood pressure 2023-12-24 17:05:00 56 mm[Hg] [facility] Heart rate 2023-12-24 17:05:00 89 /min [facility] Body temperature 2023-12-24 17:05:00 36 Ava [facility] Respiratory rate 2023-12-24 17:05:00 16 /min [facility] Oxygen saturation in Arterial blood by Pulse oximetry 2023-12-24 17:05:00 94 /min [facility] Body height 2023-12-24 16:37:00 [facility].1 cm [facility] Body [facility] 2023-12-24 16:37:[address] [facility] BMI 2023-12-24 16:37:00 44.81 kg/m2 [facility] Systolic blood pressure 2023-11-27 19:10:00 111 mm[Hg] [facility] Diastolic blood pressure 2023-11-27 19:10:00 76 mm[Hg] [facility] Heart rate 2023-11-27 19:10:00 111 /min [facility] Respiratory rate 2023-11-27 19:10:00 18 /min [facility] Body height 2023-11-27 19:10:[address] [facility] Body weight 2023-11-27 19:10:00 124.286 kg [facility] acute hospital BMI 2023-11-27 19:10:00 45.60 kg/m2 [facility] Systolic blood pressure 2023-11-26 20:40:00 112 mm[Hg] [facility] Diastolic blood pressure 2023-11-26 20:40:00 74 mm[Hg] [facility] Heart rate 2023-11-26 20:40:00 103 /min [facility] Body temperature 2023-11-26 20:40:00 36.39 Ava [facility] Body height 2023-11-26 20:40:[address] [facility] Body weight 2023-11-26 20:40:[address] [facility] BMI 2023-11-26 20:40:00 45.46 kg/m2 [facility] Systolic blood pressure 2023-11-22 18:07:00 134 mm[Hg] [facility] Diastolic blood pressure 2023-11-22 18:07:00 89 mm[Hg] [facility] Heart rate 2023-11-22 18:07:00 126 /min [facility] Body temperature 2023-11-22 18:07:00 36.28 Ava [facility] Respiratory rate 2023-11-22 18:07:00 18 /min [facility] Body height 2023-11-22 18:07:00 165.1 cm [facility] Body weight 2023-11-22 18:07:00 125.102 kg [facility] BMI 2023-11-22 18:07:00 45.90 kg/m2 [facility] Oxygen saturation in Arterial blood by Pulse oximetry 2023-11-22 18:07:00 98 /min [facility] Systolic blood pressure 2023-11-19 14:38:00 127 mm[Hg] [facility] Diastolic blood pressure 2023-11-19 14:38:00 86 mm[Hg] [facility] Heart rate 2023-11-19 14:38:00 107 /min [facility] Body temperature 2023-11-19 14:38:00 36.33 Ava [facility] Respiratory rate 2023-11-19 14:38:00 18 /min [facility] Body height 2023-11-19 14:38:00 165.1 cm [facility] Body weight 2023-11-19 14:38:00 123.741 kg [facility] BMI 2023-11-19 14:38:00 45.40 kg/m2 [facility] Oxygen saturation in Arterial blood by Pulse oximetry 2023-11-19 14:38:00 98 /min [facility] Systolic blood pressure 2023-11-18 16:30:00 156 mm[Hg] [facility] Diastolic blood pressure 2023-11-18 16:30:00 113 mm[Hg] [facility] Heart rate 2023-11-18 16:30:00 88 /min [facility] Respiratory rate 2023-11-18 16:30:00 18 /min [facility] Oxygen saturation in Arterial blood by Pulse oximetry 2023-11-18 16:30:00 98 /min [facility] Body temperature 2023-11-18 10:28:00 36.72 Ava [facility] Body height 2023-11-18 10:27:[address] [facility] Body weight 2023-11-18 10:27:[address] [facility] BMI 2023-11-18 10:27:00 44.93 kg/m2 [facility] Systolic blood pressure 2023-11-08 20:00:00 123 mm[Hg] [facility] Diastolic blood pressure 2023-11-08 20:00:00 91 mm[Hg] [facility] Respiratory rate 2023-11-08 20:00:00 17 /min [facility] Heart rate 2023-11-08 19:00:00 75 /min [facility] Oxygen saturation in Arterial blood by Pulse oximetry 2023-11-08 19:00:00 100 /min [facility] Body temperature 2023-11-08 17:00:00 36.83 Ava [facility] Body height 2023-11-08 15:16:00 165.1 cm [facility] Body weight 2023-11-08 15:16:00 122.471 kg [facility] acute hospital BMI 2023-11-08 15:16:00 44.93 kg/m2 [facility] Systolic blood pressure 2023-08-06 19:07:00 135 mm[Hg] [facility] Diastolic blood pressure 2023-08-06 19:07:00 93 mm[Hg] [facility] Heart rate 2023-08-06 19:04:00 81 /min [facility] Body temperature 2023-08-06 19:04:00 36.11 Ava [facility] Respiratory rate 2023-08-06 19:04:00 18 /min [facility] Body height 2023-08-06 19:04:00 165.1 cm [facility] Body weight 2023-08-06 19:04:[address] [facility] BMI 2023-08-06 19:04:00 51.60 kg/m2 [facility] Oxygen saturation in Arterial blood by Pulse oximetry 2023-08-06 19:04:00 100 /min [facility] Systolic blood pressure 2023-06-21 16:24:00 156 mm[Hg] [facility] Diastolic blood pressure 2023-06-21 16:24:00 98 mm[Hg] [facility] Heart rate 2023-06-21 16:24:00 94 /min [facility] Body temperature 2023-06-21 16:24:00 37.22 Ava [facility] Respiratory rate 2023-06-21 16:24:00 16 /min [facility] Body height 2023-06-21 16:24:[address] [facility] Body weight 2023-06-21 16:24:00 127.007 kg [facility] acute hospital BMI 2023-06-21 16:24:00 46.59 kg/m2 [facility] Oxygen saturation in Arterial blood by Pulse oximetry 2023-06-21 16:24:00 100 /min [facility] Systolic blood pressure 2023-01-24 20:58:00 132 mm[Hg] [facility] Diastolic blood pressure 2023-01-24 20:58:00 96 mm[Hg] [facility] Heart rate 2023-01-24 20:56:00 95 /min [facility] Body temperature 2023-01-24 20:56:00 36.67 Ava [facility] Respiratory rate 2023-01-24 20:56:00 18 /min [facility] Body height 2023-01-24 20:56:[address] [facility] Body weight 2023-01-24 20:56:00 138.937 kg [facility] acute hospital BMI 2023-01-24 20:56:00 50.97 kg/m2 [facility] acute hospital Oxygen saturation in Arterial blood by Pulse oximetry 2023-01-24 20:56:00 100 /min [facility] Systolic blood pressure 2022-12-25 19:43:00 131 mm[Hg] [facility] Diastolic blood pressure 2022-12-25 19:43:00 86 mm[Hg] [facility] Heart rate 2022-12-25 19:43:00 72 /min [facility] Body temperature 2022-12-25 19:43:00 36.28 Ava [facility] Respiratory rate 2022-12-25 19:43:00 16 /min [facility] Body height 2022-12-25 19:43:[address] [facility] Body weight 2022-12-25 19:43:[address] [facility] BMI 2022-12-25 19:43:00 50.75 kg/m2 [facility] acute hospital Oxygen saturation in Arterial blood by Pulse oximetry 2022-12-25 19:43:00 99 /min [facility] Systolic blood pressure 2022-01-20 20:03:00 135 mm[Hg] [facility] Diastolic blood pressure 2022-01-20 20:03:00 87 mm[Hg] [facility] Heart rate 2022-01-20 20:03:00 87 /min [facility] Body temperature 2022-01-20 20:03:00 36.56 Ava [facility] Respiratory rate 2022-01-20 20:03:00 17 /min [facility] Body height 2022-01-20 20:03:00 165.1 cm [facility] Body weight 2022-01-20 20:03:00 118.706 kg [facility] acute hospital BMI 2022-01-20 20:03:00 43.55 kg/m2 [facility] Systolic blood pressure 2021-12-22 13:14:00 125 mm[Hg] [facility] Diastolic blood pressure 2021-12-22 13:14:00 86 mm[Hg] [facility] Heart rate 2021-12-22 13:14:00 96 /min [facility] Body temperature 2021-12-22 13:14:00 36.61 Ava [facility] Respiratory rate 2021-12-22 13:14:00 20 /min [facility] Body height 2021-12-22 13:14:[address] [facility] Body weight 2021-12-22 13:14:[address] [facility] BMI 2021-12-22 13:14:00 39.77 kg/m2 [facility] Systolic blood pressure 2021-11-29 12:00:00 142 mm[Hg] [facility] Diastolic blood pressure 2021-11-29 12:00:00 87 mm[Hg] [facility] Heart rate 2021-11-29 12:00:00 79 /min [facility] Body temperature 2021-11-29 12:00:00 36.72 Ava [facility] Respiratory rate 2021-11-29 12:00:00 18 /min [facility] Oxygen saturation in Arterial blood by Pulse oximetry 2021-11-29 12:00:00 100 /min [facility] Body height 2021-11-26 08:32:[address] [facility] Body weight 2021-11-26 08:32:[address] [facility] BMI 2021-11-26 08:32:00 41.84 kg/m2 [facility] Systolic blood pressure 2021-11-23 14:45:00 133 mm[Hg] [facility] Diastolic blood pressure 2021-11-23 14:45:00 102 mm[Hg] [facility] Heart rate 2021-11-23 14:42:00 77 /min [facility] Body temperature 2021-11-23 14:42:00 36.33 Ava [facility] Respiratory rate 2021-11-23 14:42:00 18 /min [facility] Body height 2021-11-23 14:42:[address] [facility] Body weight 2021-11-23 14:42:[address] [facility] BMI 2021-11-23 14:42:00 41.89 kg/m2 [facility] Systolic blood pressure 2021-11-11 15:03:00 120 mm[Hg] [facility] Diastolic blood pressure 2021-11-11 15:03:00 82 mm[Hg] [facility] Heart rate 2021-11-11 14:58:00 105 /min [facility] Body temperature 2021-11-11 14:57:00 36.33 Ava [facility] Respiratory rate 2021-11-11 14:57:00 18 /min [facility] Body height 2021-11-11 14:57:00 165.1 cm [facility] Body weight 2021-11-11 14:57:00 113.541 kg [facility] acute hospital BMI 2021-11-11 14:57:00 41.65 kg/m2 [facility] hospital Systolic blood pressure 2021-10-27 23:55:00 129 mm[Hg] [facility] Diastolic blood pressure 2021-10-27 23:55:00 76 mm[Hg] [facility] Heart rate 2021-10-27 23:55:00 88 /min [facility] Oxygen saturation in Arterial blood by Pulse oximetry 2021-10-27 23:55:00 96 /min [facility] Body temperature 2021-10-27 23:14:00 37 Ava [facility] Respiratory rate 2021-10-27 23:14:00 18 /min [facility] Body height 2021-10-27 22:26:00 165.1 cm [facility] acute [facility] Body weight 2021-10-27 22:26:00 111.131 kg [facility] acute hospital BMI 2021-10-27 22:26:00 40.77 kg/m2 [facility] acute hospital Systolic blood pressure 2021-10-27 18:08:00 140 mm[Hg] [facility] Diastolic blood pressure 2021-10-27 18:08:00 94 mm[Hg] [facility] Heart rate 2021-10-27 18:07:00 88 /min [facility] Body temperature 2021-10-27 18:07:00 35.61 Ava [facility] Respiratory rate 2021-10-27 18:07:00 18 /min [facility] Body weight 2021-10-27 18:07:00 110.224 kg [facility] acute hospital BMI 2021-10-27 18:07:00 40.44 kg/m2 [facility] acute hospital Systolic blood pressure 2024-03-16 08:17:00 152 mm[Hg] [facility] Diastolic blood pressure 2024-03-16 08:17:00 114 mm[Hg] [facility] Heart rate 2024-03-16 08:17:00 114 /min [facility] Body temperature 2024-03-16 08:17:00 36.78 Ava [facility] Respiratory rate 2024-03-16 08:17:00 20 /min [facility] Body height 2024-03-16 08:17:00 165.1 cm [facility] acute hospital Body weight 2024-03-16 08:17:00 104.781 kg General acute hospital BMI 2024-03-16 08:17:00 38.44 kg/m2 General acute hospital Oxygen saturation in Arterial blood by Pulse oximetry 2024-03-16 08:17:00 100 /min [facility] Procedures Procedure Date / Time Performed Performing Clinician Source RAPID STREP SCREEN FOR GROUP A 2024-03-23 2 10:33:00 Singer [facility] INFLUENZA A/B RSV COVID NAAT 2024-04-12 10:33:00 Angus Dwyer [facility] CA INJECTION AA&/STRD TRIGEM INAL NERVE EACH BRANCH 2024-03-16 08:31:23 Aster Lee [facility] CA INJECTION AA&/STRD TRIGEM INAL NERVE EACH BRANCH 2024-03-16 08:31:23 Aster Lee [facility] URINE CULTURE 2024-02-22 08:11:00 Shorty Zambrano [facility] CT ABDOMEN PELVIS W CONTRAST 2024-02-22 07:32:12 Shorty Zambrano [facility] CT ABDOMEN PELVIS W CONTRAST 2024-02-22 07:32:12 Shorty Zambrano [facility] POCT TEST 2024-02-22 06:51:00 Shorty Zambrano [facility] POCT TEST 2024-02-22 06:51:00 Shorty Zambrano [facility] URINALYSIS 2024-02-22 06:48:00 Shroty Zabmrano [facility] URINALYSIS 2024-02-22 06:48:00 Shorty Zambrano [facility] LIPASE 2024-02-22 06:08:00 Shorty Zambrano [facility] COMP. METABOLIC PANEL ([id number]) 2024-02-22 06:08:00 Shorty Zambrano [facility] CBC WITH DIFF 2024-02-22 06:08:00 Shorty Zambrano [facility] CBC WITH DIFF 2024-02-22 06:08:00 Shorty Zambrano [facility] COMP. METABOLIC PANEL ([id number]) 2024-02-22 06:08:00 Shorty Zambrano [facility] LIPASE 2024-02-22 06:08:00 Shorty Zambrano [facility] SURGICAL PATHOLOGY EXAM 2024-01-29 18:00:00 Eva Bryan [facility] INTUBATION 2024-01-29 16:39:00 Barbara Cartwright [facility] POCT TEST 2024-01-29 16:18:00 [facility] POCT TEST 2024-01-29 16:18:00 Gianni Lopez [facility] POCT TEST 2024-01-29 16:18:00 Gianni Lopez [facility] [address] - [place] LAPAROSCOPY SURG CHOLECYSTECTOMY 2024-01-29 16:15:00 Eva Bryan [facility] [address] - CA LAPAROSCOPY SURG CHOLECYSTECTOMY 2024-01-29 16:15:00 Eva Bryan [facility] POCT TEST 2024-01-12 10:32:00 Caro Bauer [facility] POCT TEST 2024-01-12 10:32:00 Caro Bauer [facility] LIPASE 2024-01-12 10:06:00 Caro Bauer [facility] COMP. METABOLIC PANEL ([id number]) 2024-01-12 10:06:00 Caro Bauer [facility] CBC WITH DIFF 2024-01-12 10:06:00 Caro Bauer [facility] CBC WITH DIFF 2024-01-12 10:06:00 Caro Bauer [facility] COMP. METABOLIC PANEL ([id number]) 2024-01-12 10:06:00 Caro Bauer [facility] LIPASE 2024-01-12 10:06:00 Caro Bauer [facility] ENDOSCOPY PROCEDURE DOCUMENTATION 2023-02 15:14:36 Doctor Unassigned, Timpson [facility] EGD (ENDO) 2023-12-24 17:08:17 Jeimy [facility] EGD (ENDO) 2023-12-24 17:08:17 Jeimy [facility] SURGICAL PATHOLOGY EXAM 2023-12-24 16:57:00 Yisel Hart [facility] ESOPHAGOGASTRODUODENOSCOPY 2023-12-24 16:36:00 Yisel Hart [facility] US OVARY TORSION 2023-11-18 16:33:50 Kelly Simms [facility] URINALYSIS 2023-11-18 15:15:00 Caro Bauer [facility] CT ABDOMEN PELVIS W CONTRAST 2023-11-18 13:38:59 Caro Bauer [facility] LIPASE 2023-11-18 11:10:00 Caro Bauer [facility] TEST, SERUM 2023-11-18 11:10:00 Caro Bauer [facility] COMP. METABOLIC PANEL ([id number]) 2023-11-18 11:10:00 aCro Bauer [facility] CBC WITH DIFF 2023-11-18 11:10:00 Caro Bauer [facility] COMP. METABOLIC PANEL ([id number]) 2023-11-08 16:43:00 Tiff Isabel [facility] LIPASE 2023-11-08 16:01:00 Maame [facility] CBC WITH DIFF 2023-11-08 16:01:00 Maame [facility] URINALYSIS 2023-11-08 16:01:00 Maame [facility] POCT TEST 2023-11-08 16:01:00 Maame [facility] ZINC, SERUM 2023-08-06 19:42:00 Obi-Franklin [facility] VITAMIN B6, PLASMA 2023-08-06 19:42:00 Obi-Franklin [facility] FREE T4 2023-08-06 19:42:00 suzanne-Franklin, [facility] THYROID STIMULATING HORMONE 2023-08-06 19:42:00 Jeimy [facility] COMP. METABOLIC PANEL ([id number]) 2023-08-06 19:42:00 Obsuzanne-Franklin [facility] CBC WITH DIFF 2023-08-06 19:42:00 Obsuzanne-Franklin [facility] GLYCOSYLATED HEMOGLOBIN (A1C) 2023-08-06 19:42:00 Arun-Franklin [facility] VITAMIN D, 25-OH 2023-08-06 19:42:00 Obsuzanne-Franklni [facility] FREE T3 2023-08-06 19:42:00 Obsuzanne-Franklin [facility] POCT TEST 2023-06-21 16:30:00 Bonita Trivedi [facility] URINALYSIS 2023-06-21 16:29:00 Bonita Trivedi [facility] INSURANCE CORRESPONDENCE 2023-01-15 06:01:00 Doctor Unassigned, Timpson [facility] INSURANCE CORRESPONDENCE 2023-01-06 06:01:00 Doctor Unassigned, Timpson [facility] HCV ANTIBODY 2022-12-25 20:30:00 Obi-Franklin, Jess [facility] GARDASIL 9 (HPV 9V) VACCINE 2022-12-25 20:04:37 Obi-Jess Reid [facility] POCT TEST 2022-01-20 20:18:00 Jacinta Voss [facility] DME/SUPPLY JUSTIFICATION 2022-01-03 06:01:00 Doctor Unassigned, Timpson [facility] CBC WITH DIFF 2021-11-28 08:48:00 Adum, Vanessa Cowan [facility] CENTRAL NEURAXIAL BLOCK 2021-11-26 20:52:15 Wilver Owens [facility] HB ABO GROUPING 2021-11-26 09:30:00 Adum, Vanessa Cowan [facility] LACTATE DEHYDROGENASE 2021-11-26 09:29:00 Adum, Vanessa Cowan [facility] URIC ACID 2021-11-26 09:29:00 Adum, Vanessa Cowan [facility] COMP. METABOLIC PANEL ([id number]) 2021-11-26 09:29:00 Adum, Vanessa Cowan [facility] URINE DRUG (IMMUNOASSAY) - COMPREHENSIVE DRUG SCREEN 2021-11-26 09:29:00 Adum, Vanessa Cowan [facility] CBC WITH DIFF 2021-11-26 09:29:00 Adum, Vanessa Cowan [facility] URINALYSIS 2021-11-26 09:29:00 Adum, Vanessa Cowan [facility] HEPATITIS B SURFACE ANTIGEN 2021-11-26 09:29:00 Adum, Vanessa Cowan [facility] ADC OR THOMPSON ONLY - RPR 2021-11-26 09:29:00 Adum, Vanessa Cowan [facility] HIV 1/2 AG-AB WITH REFLEX 2021-11-26 09:29:00 Adum, Vanessa Cowan [facility] HIV 1/2 AG-AB WITH REFLEX 2021-11-26 09:29:00 Adum, Vanessa Cowan [facility] CONSENT/REFUSAL FOR DIAGNOSI S AND TREATMENT 2021-11-26 08:08:59 Doctor Unassigned, Timpson [facility] POCT URINALYSIS 2021-11-23 14:56:00 Rodrick Pete [facility] POCT URINALYSIS 2021-11-11 14:58:00 Rodrick Pete [facility] CONSENT/REFUSAL FOR DIAGNOSI S AND TREATMENT 2021-10-27 22:13:12 Doctor Unassigned, Timpson [facility] POCT URINALYSIS 2021-10-27 18:21:00 Rodrick Pete [facility] LAB ONLY PAP SMEAR-LIQUID BASED 20:43:00 Rodrick Pete [facility] Encounters Start Date/Time End Date/Time Encounter Type Admission Type Attending [facility] Care Department Encounter ID Source 2024-05-07 00:00:00 2024-06-07 18:15:52 Patient Secure M[facility] 1.2.840.114 350.1.13.10 4.2.7.2.686 [id number] [facility] 2024-05-28 10:40:00 2024-05-28 10:40:00 Outpatient R OBI-FRANKLIN , JESS OBI-FRANKLIN , [facility] [id number] [facility] 2024-05-27 00:00:00 2024-05-27 23:29:36 Patient Secure Msg Obi-Franklin , [facility] BUILDING 1.2.840.114 350.1.13.10 4.2.7.2.686 [id number] [facility] 2024-05-20 00:00:00 2024-05-22 09:07:10 Patient Secure Msg Obi-Franklin , [facility] BUILDING 1.2.840.114 350.1.13.10 4.2.7.2.686 [id number] [facility] 2024-04-11 00:00:00 2024-05-17 18:21:45 Patient Secure Msg Jess Munson [facility] 1.2.840.114 350.1.13.10 4.2.7.2.686 [id number] 044 [id number] [facility] 2024-03-18 00:00:00 2024-04-19 18:15:59 Patient Secure Msg Doctor Unassigned, Timpson Doctor Unassigned, Timpson [facility] 1.2.840.114 350.1.13.10 4.2.7.2.686 [id number] [id number] [facility] 2024-04-16 11:00:00 2024-04-16 11:53:16 Office Visit Jeimy [facility] 1..840.114 350.1.13.10 4.2.7.2.686 [id number] [facility] 2024-04-16 11:00:00 2024-04-16 11:53:16 Outpatient R OBSuzanne-JESS REID OBSuzanne-FRANKLIN [facility] [id number] [facility] 2024-04-12 04:34:00 2024-04-12 05:45:00 Emergency X ANGUS DWYER [facility] [id number] [facility] 2024-04-12 04:34:00 2024-04-12 05:45:00 Emergency Angus Dwyer [facility] 1..840.114 350.1.13.10 4.2.7.2.686 [id number] [facility] 2024-04-07 00:00:00 2024-04-07 09:53:08 Telephone ObVaibhavwo [facility] 1.2.840.114 350.1.13.10 4.2.7.2.686 [id number] [id number] [facility] 2023-12-26 00:00:00 2024-04-05 06:41:10 Orders Only Doctor Unassigned, Timpson Doctor Unassigned, Timpson [facility] 1.2.840.114 350.1.13.10 4.2.7.2.686 [id number] [facility] 2024-03-30 00:00:00 2024-03-31 12:14:42 Patient Secure Msg Obi-Angelo Reidma 1.2.840.1 22284.1.1 3.104.2.7 .3.906059 .8 [id number] [facility] 2024-03-28 00:00:00 2024-03-30 12:51:45 Refill Obsuzanne-Franklin Jess 1.2.840.1 92642.1.1 3.104.2.7 .3.661446 .8 [id number] [facility] 2024-03-28 00:00:00 2024-03-28 15:21:20 Refill Obi-Franklin Jess 1.2.840.1 20993.1.1 3.104.2.7 .3.372769 .8 [id number] [facility] 2024-03-27 13:20:00 2024-03-27 13:20:00 Outpatient R OBI-FRANKLIN JESS OBI-FRANKLIN , JESS [facility] [id number] [facility] 2024-03-26 00:00:00 2024-03-26 10:49:07 Telephone ObJess Ramesh 1.2.840.1 25141.1.1 3.104.2.7 .3.207069 .8 [id number] [facility] 2024-03-18 00:00:00 2024-03-18 10:19:58 Patient Secure Msg Jess Munson 1.2.840.1 08372.1.1 3.104.2.7 .3.859560 .8 [id number] [facility] 2024-03-17 00:00:00 2024-03-18 08:09:54 Telephone ObJess Ramesh 1.2.840.1 17354.1.1 3.104.2.7 .3.688021 .8 [id number] [facility] 2024-03-16 02:22:00 2024-03-16 02:40:00 Emergency X ASTER LEE, [facility] [id number] [facility] 2024-03-16 02:22:00 2024-03-16 02:40:00 Emergency Aster Lee G 1.2.840.1 57895.1.1 3.104.2.7 .3.261965 .8 [id number] [facility] 2024-03-16 00:00:00 2024-03-16 00:00:00 Travel 1.2.840.1 61778.1.1 3.104.2.7 .3.750386 .8 1.2.840.114 350.1.13.10 4.2.7.3.698 084.8 [id number] [facility] 2024-02-11 00:00:00 2024-03-15 18:16:55 Patient Secure Msg BryanEva he 1.2.840.1 04124.1.1 3.104.2.7 .3.126306 .8 [id number] [facility] 2024-03-10 00:00:00 2024-03-10 23:21:57 Refill Jess Munson 1.2.840.1 67964.1.1 3.104.2.7 .3.567485 .8 [id number] [facility] 2024-03-07 00:00:00 2024-03-08 10:28:33 Telephone Jess Munson 1.2.840.1 35189.1.1 3.104.2.7 .3.018029 .8 [id number] [facility] 2024-03-06 14:15:00 2024-03-06 14:15:00 Outpatient EVA DODGE [facility] [id number] [facility] 2024-03-05 00:00:00 2024-03-06 09:29:39 Telephone Jess Munson 1.2.840.1 23204.1.1 3.104.2.7 .3.831951 .8 [id number] [facility] 2024-03-04 00:00:00 2024-03-05 15:00:39 Patient Secure Msg Jess Munson 1.2.840.1 20835.1.1 3.104.2.7 .3.294085 .8 [id number] [facility] 2024-03-04 00:00:00 2024-03-04 14:51:37 Telephone Jess Munson 1.2.840.1 07531.1.1 3.104.2.7 .3.271520 .8 [id number] [facility] 2024-02-28 00:00:00 2024-03-03 16:59:48 Telephone Jess Munson 1.2.840.1 22635.1.1 3.104.2.7 .3.229855 .8 [id number] [facility] 2024-02-28 00:00:00 2024-02-28 13:24:25 Telephone Jess Munson 1.2.840.1 60141.1.1 3.104.2.7 .3.385770 .8 [id number] [facility] 2024-02-27 00:00:00 2024-02-27 15:55:52 Telephone ObJess Ramesh 1.2.840.1 64708.1.1 3.104.2.7 .3.438173 .8 [id number] [facility] 2024-02-27 10:40:00 2024-02-27 11:10:59 Outpatient R OBJESS RAMESH OBJESS RAMESH [facility] [id number] [facility] 2024-02-27 10:40:00 2024-02-27 11:10:59 Office Visit ObJess Ramesh 1.2.840.1 98804.1.1 3.104.2.7 .3.416809 .8 [id number] [facility] 2024-02-26 00:00:00 2024-02-26 00:00:00 Travel 1.2.840.1 73722.1.1 3.104.2.7 .3.424189 .8 1.2.840.114 350.1.13.10 4.2.7.3.698 084.8 [id number] [facility] 2024-02-22 00:00:00 2024-02-22 13:47:53 Telephone ObJess Ramesh 1.2.840.1 04311.1.1 3.104.2.7 .3.383647 .8 [id number] [facility] 2024-02-21 23:55:00 2024-02-22 02:59:00 Emergency X SHORTY ZAMBRANO ERICCA [facility] ERT [id number] [facility] 2024-02-21 23:55:00 2024-02-22 02:59:00 Emergency Shorty Zambrano 1.2.840.1 17642.1.1 3.104.2.7 .3.123033 .8 [id number] [facility] 2024-02-21 00:00:00 2024-02-21 08:19:30 Telephone Jess Munson 1.2.840.1 08703.1.1 3.104.2.7 .3.468576 .8 [id number] [facility] 2024-02-21 00:00:00 2024-02-21 00:00:00 Travel 1.2.840.1 23435.1.1 3.104.2.7 .3.899326 .8 1.2.840.114 350.1.13.10 4.2.7.3.698 084.8 [id number] [facility] 2024-02-11 00:00:00 2024-02-13 09:13:13 Telephone Eva Bryan 1.2.840.1 78828.1.1 3.104.2.7 .3.521675 .8 [id number] [facility] 2024-02-11 00:00:00 2024-02-11 13:15:26 Patient Secure Msg Eva Bryan 1.2.840.1 35056.1.1 3.104.2.7 .3.465399 .8 [id number] [facility] 2024-02-11 00:00:00 2024-02-11 12:46:06 Refill Jess Munson 1.2.840.1 76211.1.1 3.104.2.7 .3.702278 .8 [id number] [facility] 2024-02-08 00:00:00 2024-02-08 14:40:57 Telephone Eva Bryan 1.2.840.1 99552.1.1 3.104.2.7 .3.669765 .8 [id number] [facility] 2024-02-07 00:00:00 2024-02-08 14:24:51 Patient Secure Msg Eva Bryan 1.2.840.1 74231.1.1 3.104.2.7 .3.652004 .8 [id number] [facility] 2024-01-30 00:00:00 2024-01-31 08:09:51 Telephone Eva Bryan 1.2.840.1 96199.1.1 3.104.2.7 .3.367694 .8 [id number] [facility] 2024-01-29 08:46:00 2024-01-29 14:10:00 Outpatient R IRVIN EVA [facility] [id number] [facility] 2024-01-29 08:46:00 2024-01-29 14:10:00 Hospital Encounter Eva Bryan 1.2.840.1 37777.1.1 3.104.2.7 .3.958105 .8 [id number] [facility] 2024-01-29 10:00:00 2024-01-29 12:35:00 Surgery Eva Bryan 1.2.840.1 12079.1.1 3.104.2.7 .3.700288 .8 [id number] [facility] 2024-01-29 10:30:00 2024-01-29 12:29:00 Anesthesia Event Radha Hurst Brian 1.2.840.1 43947.1.1 3.104.2.7 .3.674627 .8 [id number] [facility] 2024-01-25 00:00:00 2024-01-28 13:50:46 Refill Jess Munson 1.2.840.1 00567.1.1 3.104.2.7 .3.300720 .8 [id number] [facility] 2024-01-21 00:00:00 2024-01-21 00:00:00 Travel 1.2.840.1 95759.1.1 3.104.2.7 .3.530451 .8 1.2.840.114 350.1.13.10 4.2.7.3.698 084.8 [id number] [facility] 2024-01-12 03:54:00 2024-01-12 05:48:00 Emergency X CARO BAUER [facility] [id number] [facility] 2024-01-12 03:54:00 2024-01-12 05:48:00 Emergency Joanneluis fbernabe Caro S 1.2.840.1 30384.1.1 3.104.2.7 .3.486856 .8 [id number] [facility] 2024-01-12 00:00:00 2024-01-12 00:00:00 Travel 1.2.840.1 38170.1.1 3.104.2.7 .3.000930 .8 1.2.840.114 350.1.13.10 4.2.7.3.698 084.8 [id number] [facility] 2024-01-11 00:00:00 2024-01-11 12:50:05 Patient Secure Msg Obi-Franklin , Jess 1.2.840.1 15094.1.1 3.104.2.7 .3.349494 .8 [id number] [facility] 2024-01-10 00:00:00 2024-01-11 05:46:35 Patient Secure Msg Obi-Franklin Jess 1.2.840.1 74397.1.1 3.104.2.7 .3.985498 .8 [id number] [facility] 2024-01-07 11:15:00 2024-01-07 12:06:32 Outpatient R BRYANEVA HE [facility] [id number] [facility] 2024-01-07 11:15:00 2024-01-07 12:06:32 Office Visit Eva Bryan 1.2.840.1 17216.1.1 3.104.2.7 .3.054857 .8 [id number] [facility] 2024-01-07 00:00:00 2024-01-07 00:00:00 Scanned Documents Doctor Unassigned, Timpson 1.2.840.1 23882.1.1 3.104.2.7 .3.231021 .8 [id number] [facility] 2024-01-07 00:00:00 2024-01-07 00:00:00 Travel 1.2.840.1 99773.1.1 3.104.2.7 .3.252029 .8 1.2.840.114 350.1.13.10 4.2.7.3.698 084.8 [id number] [facility] 2023-11-30 00:00:00 2024-01-05 18:24:03 Patient Secure M[facility] 1.2.840.114 350.1.13.10 4.2.7.2.686 [id number] 044 [id number] [facility] 2024-01-05 00:00:00 2024-01-05 00:00:00 Travel 1.2.840.1 45814.1.1 3.104.2.7 .3.231880 .8 1.2.840.114 350.1.13.10 4.2.7.3.698 084.8 [id number] [facility] 2024-01-03 11:00:00 2024-01-03 11:41:02 Outpatient R OBI-JESS REID [facility] [id number] [facility] 2024-01-03 11:00:00 2024-01-03 11:41:02 [facility] 1.2.840.114 350.1.13.10 4.2.7.2.686 [id number] 044 [id number] [facility] 2024-01-02 00:00:00 2024-01-02 08:01:22 [facility] 1.2.840.114 350.1.13.10 4.2.7.2.686 [id number] 044 [id number] [facility] 2023-12-25 00:00:00 2023-12-27 05:31:52 [facility] 1.2.840.114 350.1.13.10 4.2.7.2.686 [id number] 044 [id number] [facility] 2023-12-25 00:00:00 2023-12-25 12:23:25 Refill Yann Nayak [facility] 1.2.840.114 350.1.13.10 4.2.7.2.686 [id number] [facility] 2023-12-24 00:00:00 2023-12-24 16:00:22 Patient Secure Msg Yisel Hart [facility] ([facility]) 1.2.840.114 350.1.13.10 4.2.7.2.686 [id number] [id number] [facility] 2023-12-24 09:50:00 2023-12-24 11:47:00 Outpatient R YISEL HART [facility] [id number] [facility] 2023-12-24 09:50:00 2023-12-24 11:47:00 Hospital Encounter Yisel Hart [facility] 1.840.114 350.1.13.10 4.2.7.2.686 [id number] [facility] 2023-12-24 10:45:00 2023-12-24 11:15:00 Surgery Yisel Hart [facility] 1.840.114 350.1.13.10 4.2.7.2.686 [id number] [facility] 2023-12-18 14:30:00 2023-12-18 14:30:00 Outpatient R KONRAD ORDOÑEZ OGECHUKWU [facility] [id number] [facility] 2023-12-18 13:00:00 2023-12-18 13:00:00 Outpatient R OBI-FRANKLIN , JESS OBI-FRANKLIN , [facility] [id number] [facility] 2023-12-17 00:00:00 2023-12-18 11:14:39 Telephone Obi-Franklin [facility] 1..840.114 350.1.13.10 4.2.7.2.686 [id number] [facility] 2023-12-12 08:40:00 2023-12-12 08:40:00 Outpatient R OBI-FRANKLIN , JESS OBI-FRANKLIN , [facility] [id number] [facility] 2023-12-07 00:00:00 2023-12-10 08:32:14 Refill Konrad Ordoñez [facility] BUILDING 1..840.114 350.1.13.10 4.2.7.2.686 [id number] [id number] [facility] 2023-11-30 00:00:00 2023-12-04 09:32:31 Patient Secure Msg Tianna Mei [facility] ([facility]) 1.2.840.114 350.1.13.10 4.2.7.2.686 [id number] [facility] 2023-11-30 15:45:00 2023-11-30 15:45:00 Outpatient R ISAAC SHAY [facility] [id number] [facility] 2023-11-27 14:00:00 2023-11-27 14:37:01 Outpatient R VANESSA LEYVA VIVIAN [facility] [id number] [facility] 2023-11-27 14:00:00 2023-11-27 14:37:01 Office Visit Vanessa Leyva [facility] 1.2.840.114 350.1.13.10 4.2.7.2.686 [id number] [facility] 2023-11-26 15:00:00 2023-11-26 15:30:00 Office Visit Jose De Jesus Medina [facility] 1.2840.114 350.1.13.10 4.2.7.2.686 [id number] [facility] 2023-11-26 15:00:00 2023-11-26 15:00:00 Outpatient R JOSE DE JESUS MEDINA VIEN [facility] [id number] [facility] 2023-11-22 13:00:00 2023-11-22 13:30:00 Office Visit Tianna Mei [facility] ([facility]) 1.2840.114 350.1.13.10 4.2.7.2.686 [id number] [facility] 2023-11-22 13:00:00 2023-11-22 13:00:00 Outpatient R TIANNA MEI ASHLEY [facility] [id number] [facility] 2023-11-20 10:00:00 2023-11-20 10:00:00 Outpatient R [facility] [id number] [facility] 2023-11-19 10:30:00 2023-11-19 10:30:00 Film Projector Operator Visit 2, [facility] , Jess 2, [facility] 1.2.840.114 350.1.13.10 4.2.7.2.686 [id number] [facility] 2023-11-19 09:40:00 2023-11-19 10:03:53 Outpatient R OBI-FRANKLIN , JESS OBI-FRANKLIN , JESS [facility] [id number] [facility] 2023-11-19 09:40:00 2023-11-19 10:03:53 [facility] 1.2.840.114 350.1.13.10 4.2.7.2.686 [id number] [facility] 2023-11-15 00:00:00 2023-11-18 18:57:29 [facility] 1.2.840.114 350.1.13.10 4.2.7.2.686 [id number] [facility] 2023-11-16 00:00:00 2023-11-18 18:53:00 Refill [facility] BUILDING 1.2.840.114 350.1.13.10 4.2.7.2.686 [id number] [facility] 2023-11-18 05:34:00 2023-11-18 13:08:00 Emergency X GENOVEVAKELLY ROBERT [facility] ERT [id number] [facility] 2023-11-18 05:34:00 2023-11-18 13:08:00 Emergency Caro Bauer Kelly Simms [facility] 1.2.840.114 350.1.13.10 4.2.7.2.686 [id number] [facility] 2023-11-08 10:16:00 2023-11-08 16:16:00 Emergency TIFF VILLAFUERTE ERICA [facility] ERT [id number] [facility] 2023-11-08 10:16:00 2023-11-08 16:16:00 Emergency Tiff Isabel [facility] 1.2.840.114 350.1.13.10 4.2.7.2.686 [id number] [facility] 2023-10-16 00:00:00 2023-10-19 05:44:04 [facility] 1.2.840.114 350.1.13.10 4.2.7.2.686 [id number] [id number] [facility] [facility] 2023-10-15 00:00:00 2023-10-16 10:48:03 [facility] 1.2.840.114 350.1.13.10 4.2.7.2.686 [id number] 044 [id number] [facility] 2023 09:40:00 2023 09:40:00 Outpatient R OBI-FRANKLIN JESS OBI-FRANKLIN [facility] [id number] [facility] 2023-10-01 00:00:00 2023-10-03 15:28:49 [facility]ill [facility] 1.2.840.114 350.1.13.10 4.2.7.2.686 [id number] 044 [id number] [facility] 2023-09-12 00:00:00 2023-09-13 13:09:32 Refill Obi-Franklin , [facility] BUILDING 1.2.840.114 350.1.13.10 4.2.7.2.686 [id number] 044 [id number] [facility] 2023-09-05 10:40:00 2023-09-05 10:40:00 Outpatient R OBI-FRANKLIN , JESS [facility]BI[facility]ANKLIN [facility] [id number] [facility] 2023-08-13 14:40:00 2023-08-13 14:40:00 Outpatient R OBI-FRANKLIN , JESS OBI[facility]FRANKLIN , [facility] [id number] [facility] 2023-08-06 14:30:00 2023-08-06 15:25:53 Film Projector Operator Visit 2, Adc Lab Obi-Franklin [facility] BUILDING 1.2.840.114 350.1.13.10 4.2.7.2.686 [id number] [facility] 2023-08-06 14:30:00 2023-08-06 14:30:00 Outpatient R OBI-FRANKLIN , JESS [facility]BI[facility]ANKLIN [facility] [id number] [facility] 2023-08-06 13:40:00 2023-08-06 14:29:31 Office [facility] 1.2.840.114 350.1.13.10 4.2.7.2.686 [id number] 044 [id number] [facility] 2023-08-06 08:40:00 2023-08-06 08:40:00 Outpatient R OBI-FRANKLIN , JESS OBI[facility]FRANKLIN , [facility] [id number] [facility] 2023-07-31 00:00:00 2023-08-01 12:29:54 Telephone Konrad Ordoñez [facility] BUILDING 1.2.840.114 350.1.13.10 4.2.7.2.686 [id number] 044 [id number] [facility] 2023-07-31 00:00:00 2023-07-31 18:10:27 Refill Arun-Frankiln [facility] BUILDING 1.2.840.114 350.1.13.10 4.2.7.2.686 [id number] 044 [id number] [facility] 2023-07-30 00:00:00 2023-07-31 09:10:12 Patient Secure Msg [facility] 1.2.840.114 350.1.13.10 4.2.7.2.686 [id number] 044 [id number] [facility] 2023-07-25 00:00:00 2023-07-25 09:15:22 Refill Obi-Franklin [facility] BUILDING 1.2.840.114 350.1.13.10 4.2.7.2.686 [id number] 044 [id number] [facility] 2023-05-29 00:00:00 2023-06-30 18:07:42 Patient Secure Msg Obi-Franklin [facility] BUILDING 1..840.114 350.1.13.10 4.2.7.2.686 [id number] 044 [id number] [facility] 2023-06-21 11:31:00 2023-06-21 12:29:00 Emergency X BONITA TRIVEDI [facility] ERT [id number] [facility] 2023-06-21 11:31:00 2023-06-21 12:29:00 Emergency Bonita Trivedi [facility] 1..840.114 350.1.13.10 4.2.7.2.686 [id number] [id number] [facility] 2023-06-18 08:40:00 2023-06-18 08:40:00 Outpatient R OBI-FRANKLIN , JESS OBI[facility]FRANKLIN , [facility] [id number] [facility] 2023-06-12 00:00:00 2023-06-12 00:00:00 Patient Secure M[facility] 1..840.114 350.1.13.10 4.2.7.2.686 [id number] [id number] [facility] 2023-06-06 13:00:00 2023-06-06 13:00:00 Outpatient R OBI-FRANKLIN , JESS OBI-FRANKLIN , JESS [facility] [id number] [facility] 2023-05-29 00:00:00 2023-05-29 00:00:00 [facility]Franklin [facility] 1.2.840.114 350.1.13.10 4.2.7.2.686 [id number] 044 [id number] [facility] 2023-04-25 15:00:00 2023-04-25 15:00:00 Outpatient R OBI-FRANKLIN , JESS OBI[facility]FRANKLIN , [facility] [id number] [facility] 2023-04-23 00:00:00 2023-04-23 00:00:00 Refill Obsuznane-Franklin [facility] BUILDING 1.2.840.114 350.1.13.10 4.2.7.2.686 [id number] 044 [id number] [facility] 2023-04-11 00:00:00 2023-04-11 00:00:00 Refill Obi-Franklin [facility] BUILDING 1.2.840.114 350.1.13.10 4.2.7.2.686 [id number] 044 [id number] [facility] 2023-04-05 00:00:00 2023-04-05 00:00:00 Telephone Jeimy [facility] BUILDING 1.2.840.114 350.1.13.10 4.2.7.2.686 [id number] 044 [id number] [facility] 2023-04-03 00:00:00 2023-04-03 00:00:00 Telephone Carlos Ibrahim [facility] BUILDING 1.2.840.114 350.1.13.10 4.2.7.2.686 [id number] 044 [id number] [facility] 2023-04-03 00:00:00 2023-04-03 00:00:00 Patient Secure Msg Obi-Franklin [facility] BUILDING 1.2.840.114 350.1.13.10 4.2.7.2.686 [id number] 044 [id number] [facility] 2023-04-01 00:00:00 2023-04-01 00:00:00 Refill Obi-Franklin [facility] BUILDING 1.2.840.114 350.1.13.10 4.2.7.2.686 [id number] 044 [id number] [facility] 2023-03-02 00:00:00 2023-03-02 00:00:00 Refill Obi-Franklin , [facility] BUILDING 1.2.840.114 350.1.13.10 4.2.7.2.686 [id number] 044 [id number] [facility] 2023-02-19 00:00:00 2023-02-19 00:00:00 Refill Obi-Franklin [facility] BUILDING 1.2.840.114 350.1.13.10 4.2.7.2.686 [id number] 044 [id number] [facility] 2023-01-26 00:00:00 2023-01-26 00:00:00 Patient Secure Msg Doctor Unassigned, Timpson [facility] 1.2840.114 350.1.13.10 4.2.7.2.686 [id number] 044 [id number] [facility] 2023-01-24 15:00:00 2023-01-24 15:25:03 Outpatient R OBI-FRANKLIN ANGELOMA [facility]BI[facility]ANKLIN [facility] [id number] [facility] 2023-01-24 15:00:00 2023-01-24 15:25:03 Office Visit Obi-Franklin , [facility] BUILDING 1.2.840.114 350.1.13.10 4.2.7.2.686 [id number] 044 [id number] [facility] 2023-01-16 00:00:00 2023-01-16 00:00:00 Refill Obi-Franklin [facility] BUILDING 1.2840.114 350.1.13.10 4.2.7.2.686 [id number] 044 [id number] [facility] 2023-01-15 00:00:00 2023-01-15 00:00:00 Orders Only Doctor Unassigned, Timpson [facility] 1.2840.114 350.1.13.10 4.2.7.2.686 [id number] [id number] [facility] 2023-01-15 00:00:00 2023-01-15 00:00:00 Patient Secure Msg Doctor Unassigned, Timpson [facility] 1.20.114 350.1.13.10 4.2.7.2.686 [id number] 044 [id number] [facility] 2023-01-08 00:00:00 2023-01-08 00:00:00 Telephone RodrigoColppyFranklin [facility] 1.2840.114 350.1.13.10 4.2.7.2.686 [id number] 044 [id number] [facility] 2023-01-06 00:00:00 2023-01-06 00:00:00 Orders Only Doctor Unassigned, Timpson [facility] 1.2840.114 350.1.13.10 4.2.7.2.686 [id number] [id number] [facility] 2023-01-05 00:00:00 2023-01-05 00:00:00 Telephone OzsaleFranklin [facility] BUILDING 1.2840.114 350.1.13.10 4.2.7.2.686 [id number] 044 [id number] [facility] 2023-01-03 00:00:00 2023-01-03 00:00:00 Telephone [facility] 1.2840.114 350.1.13.10 4.2.7.2.686 [id number] 044 [id number] [facility] 2023-01-01 00:00:00 2023-01-01 00:00:00 Patient Secure Msg Doctor Unassigned, Timpson [facility] BUILDING 1.2.840.114 350.1.13.10 4.2.7.2.686 [id number] 044 [id number] [facility] 2022-12-28 00:00:00 2022-12-28 00:00:00 Patient Secure Msg Arun-Franklin [facility] BUILDING 1.2.840.114 350.1.13.10 4.2.7.2.686 [id number] 044 [id number] [facility] 2022-12-26 00:00:00 2022-12-26 00:00:00 Telephone Angelo Munsonma [facility] BUILDING 1.2.840.114 350.1.13.10 4.2.7.2.686 [id number] 044 [id number] [facility] 2022-12-25 14:45:00 2022-12-25 15:00:00 Film Projector Operator Visit 2, Adc Lab [facility] 1.2.840.114 350.1.13.10 4.2.7.2.686 [id number] [facility] 2022-12-25 14:00:00 2022-12-25 14:14:40 Outpatient R [facility] [id number] [facility] 2022-12-25 14:00:00 2022-12-25 14:14:40 [facility] 1.2.840.114 350.1.13.10 4.2.7.2.686 [id number] 044 [id number] [facility] 2022-12-19 10:00:00 2022-12-19 10:00:00 Outpatient R OBI-FRANKLIN , JESS OBI-FRANKLIN , JESS [facility] [id number] [facility] 2022-07-19 15:30:00 2022-07-19 15:30:00 Outpatient R KAMILA MILAN [facility] [id number] [facility] 2022-04-14 10:00:00 2022-04-14 10:00:00 Outpatient R [facility] [id number] [facility] 2022-01-20 13:00:00 2022-01-20 14:43:14 Outpatient JCAINTA DAVIES [facility] [id number] [facility] 2022-01-20 13:00:00 2022-01-20 14:43:14 Office Visit Provider, Ang-Rmchp Meche Clayton Brenda A [facility] PROTECTION ENGINEER [facility] 1..840.114 350.1.13.10 4.2.7.2.686 [id number] 107 [id number] [facility] 2022-01-16 10:45:00 2022-01-16 10:45:00 Outpatient MECHE SEGURA [facility] [id number] [facility] 2022-01-05 00:00:00 2022-01-05 00:00:00 Encounter 1.2.840.1 31858.1.1 3.104.2.7 .[id number] 1.2.840.114 350.1.13.10 4.2.7.2.696 [id number] [facility] 2022-01-03 00:00:00 2022-01-03 00:00:00 Orders Only Doctor Unassigned, Timpson [facility] 1.2840.114 350.1.13.10 4.2.7.2.686 [id number] [id number] [facility] 2021-12-29 00:00:00 2021-12-29 00:00:00 Patient Secure Msg Rodrick Pete [facility] PROTECTION ENGINEER [facility] 1.2840.114 350.1.13.10 4.2.7.2.686 [id number] 107 [id number] [facility] 2021-12-22 07:45:00 2021-12-22 08:42:11 Outpatient JACINTA DAVIES [facility] [id number] [facility] 2021-12-22 07:45:00 2021-12-22 08:42:11 Routine Visit Provider, GiovannaRmchp Jacinta Parra [facility] PROTECTION ENGINEER [facility] 1.840.114 350.1.13.10 4.2.7.2.686 [id number] 107 [id number] [facility] 2021-12-03 00:00:00 2021-12-03 00:00:00 Patient Secure Msg Doctor Unassigned, Timpson [facility] 1.2840.114 350.1.13.10 4.2.7.2.686 [id number] [facility] 2021-11-30 00:00:00 2021-11-30 00:00:00 Patient Secure Msg PeteRodrick [facility] PROTECTION ENGINEER [facility] 1.2840.114 350.1.13.10 4.2.7.2.686 [id number] 107 [id number] [facility] 2021-11-26 03:26:00 2021-11-29 10:05:00 Inpatient P VANESSA LEYVA [facility] [id number] [facility] 2021-11-26 03:26:00 2021-11-29 10:05:00 Hospital Encounter Vanessa Leyva [facility] 1.2.840.114 350.1.13.10 4.2.7.2.686 [id number] [id number] [facility] 2021-11-26 15:34:00 2021-11-27 08:48:00 Anesthesia Event Wilver Owens [facility] 1.2.840.114 350.1.13.10 4.2.7.2.686 [id number] 083 [id number] [facility] 2021-11-26 10:17:37 2021-11-26 10:17:37 Anesthesia Event Wilver Owens [facility] 1.2.840.114 350.1.13.10 4.2.7.2.686 [id number] 083 [id number] [facility] 2021-11-23 09:45:00 2021-11-23 10:25:58 Outpatient LOVE SANTA EMILY [facility] [id number] [facility] 2021-11-23 09:45:00 2021-11-23 10:25:58 Routine Visit Provider, Dylan-Rmchp Rodrick Norton Emily J. [facility] PROTECTION ENGINEER [facility] 1.2.840.114 350.1.13.10 4.2.7.2.686 [id number] 107 [id number] [facility] 2021-11-11 09:45:00 2021-11-11 10:12:23 Routine Visit Rodrick Pete [facility] PROTECTION ENGINEER [facility] 1.2.840.114 350.1.13.10 4.2.7.2.686 [id number] 107 [id number] [facility] 2021-11-11 09:45:00 2021-11-11 10:12:23 Outpatient RODRICK DENNIS [facility] [id number] [facility] 2021-11-11 00:00:00 2021-11-11 00:00:00 Patient Secure Rodrick Pete [facility] PROTECTION ENGINEER [facility] 1.2.840.114 350.1.13.10 4.2.7.2.686 [id number] 107 [id number] [facility] 2021-11-09 00:00:00 2021-11-09 00:00:00 Telephone PeteRodrick [facility] PROTECTION ENGINEER [facility] 1.2.840.114 350.1.13.10 4.2.7.2.686 [id number] 107 [id number] [facility] 2021-11-07 00:00:00 2021-11-07 00:00:00 Refill oRdrick Pete [facility] PROTECTION ENGINEER [facility] 1.2.840.114 350.1.13.10 4.2.7.2.686 [id number] 107 [id number] [facility] 2021-10-27 17:35:00 2021-10-27 19:05:00 Outpatient X KRYSTEN VELÁSQUEZN [facility] [id number] [facility] 2021-10-27 17:35:00 2021-10-27 19:05:00 Emergency Brenda Velásquez K Paige [facility] 1.2.840.114 350.1.13.10 4.2.7.2.686 [id number] [facility] 2021-10-27 12:45:00 2021-10-27 13:34:39 Outpatient R RODRICK PETE [facility] [id number] [facility] 2021-10-27 12:45:00 2021-10-27 13:34:39 Routine Visit Rodrick Pete [facility] PROTECTION ENGINEER [facility] 1.840.114 350.1.13.10 4.2.7.2.686 [id number] 107 [id number] [facility] 2021-10-27 12:45:00 2021-10-27 12:45:00 Outpatient R RODRICK PETE [facility] [id number] [facility] 2021-10-27 00:00:00 2021-10-27 00:00:00 Orders Only Doctor Unassigned, Timpson [facility] 1..114 350.1.13.10 4.2.7.2.686 [id number] [id number] [facility] 2021-10-26 00:00:00 2021-10-26 00:00:00 Abstract Rodrick Pete [facility] PROTECTION ENGINEER [facility] .84.114 350.1.13.10 4.2.7.2.686 [id number] 107 [id number] [facility] 2021-10-21 09:45:00 2021-10-21 10:30:00 Film Projector Operator Visit Ultrasound, Vinh Stone [facility] PROTECTION ENGINEER [facility] 1..114 350.1.13.10 4.2.7.2.686 [id number] [facility] 2021-10-21 09:45:00 2021-10-21 09:45:00 Outpatient VINH JOY SANGEETA [facility] [id number] [facility] 2021-10-18 00:00:00 2021-10-18 00:00:00 Patient Secure Msg Doctor Unassigned, Timpson [facility] 1.84.114 350.1.13.10 4.2.7.2.686 [id number] 107 [id number] [facility] 2021-10-18 00:00:00 2021-10-18 00:00:00 Telephone Rodrick Pete [facility] PROTECTION ENGINEER [facility] 1..840.114 350.1.13.10 4.2.7.2.686 [id number] 107 [id number] [facility] 2021-10-14 08:00:00 2021-10-14 08:34:31 Outpatient R RODRICK PETE [facility] [id number] [facility] 2021-10-14 08:00:00 2021-10-14 08:34:31 Routine Visit Rodrick Pete [facility] PROTECTION ENGINEER [facility] 1..840.114 350.1.13.10 4.2.7.2.686 [id number] 107 [id number] [facility] 2021-09-29 10:45:00 2021-09-29 11:39:29 Outpatient R RODRICK PETE [facility] [id number] [facility] 2021-09-29 10:45:00 2021-09-29 11:39:29 Routine Visit Rodrick Pete [facility] PROTECTION ENGINEER [facility] 1..840.114 350.1.13.10 4.2.7.2.686 [id number] 107 [id number] [facility] 2021-09-29 10:45:00 2021-09-29 10:45:00 Outpatient R PETERODRICK [facility] [id number] [facility] 2021-09-16 00:00:00 2021-09-16 00:00:00 Patient Secure Msg Doctor Unassigned, Timpson [facility] 1..840.114 350.1.13.10 4.2.7.2.686 [id number] [facility] 2021-09-16 00:00:00 2021-09-16 00:00:00 Telephone Rodrick Pete [facility] PROTECTION ENGINEER [facility] 1.2840.114 350.1.13.10 4.2.7.2.686 [id number] 107 [id number] [facility] 2021-09-16 00:00:00 2021-09-16 00:00:00 Telephone PeteRodrick [facility] PROTECTION ENGINEER [facility] 1.2840.114 350.1.13.10 4.2.7.2.686 [id number] 107 [id number] [facility] 2021-09-15 10:45:00 2021-09-15 11:53:13 Outpatient R PETERODRICK [facility] [id number] [facility] 2021-09-15 10:45:00 2021-09-15 11:53:13 Routine Visit Rodrick Pete [facility] PROTECTION ENGINEER [facility] 1.0.114 350.1.13.10 4.2.7.2.686 [id number] 107 [id number] [facility] 2021-09-13 00:00:00 2021-09-13 00:00:00 Refill PeteRodrick [facility] PROTECTION ENGINEER [facility] 1.2840.114 350.1.13.10 4.2.7.2.686 [id number] 107 [id number] [facility] 2021-08-23 08:45:00 2021-08-23 22:46:00 Outpatient X BRENDA VELÁSQUEZ [facility] [id number] [facility] 2021-08-23 08:45:00 2021-08-23 22:46:00 Emergency MartinezIvanna stephenson Brenda [facility] 1.2840.114 350.1.13.10 4.2.7.2.686 [id number] [facility] 2021-08-18 10:30:00 2021-08-18 10:44:10 Outpatient R YUSUF PETEELSA [facility] [id number] [facility] 2021-08-18 10:30:00 2021-08-18 10:44:10 Routine Visit Kiki Petecarrol Mosquera [facility] PROTECTION ENGINEER [facility] 1.2.840.114 350.1.13.10 4.2.7.2.686 [id number] 107 [id number] [facility] 2021-08-11 00:00:00 2021-08-11 00:00:00 Patient Secure Msg Kiki Petecarrol Mosquera [facility] PROTECTION ENGINEER [facility] 1.2.840.114 350.1.13.10 4.2.7.2.686 [id number] 107 [id number] [facility] 2021-08-11 00:00:00 2021-08-11 00:00:00 Refill Kiki Petecarrol [facility] PROTECTION ENGINEER [facility] 1.2.840.114 350.1.13.10 4.2.7.2.686 [id number] 107 [id number] [facility] 2021-08-11 00:00:00 2021-08-11 00:00:00 Shefali PeteRodrick [facility] PROTECTION ENGINEER [facility] 1.2.840.114 350.1.13.10 4.2.7.2.686 [id number] 107 [id number] [facility] 2021-08-11 00:00:00 2021-08-11 00:00:00 Refbrandy Pete Rodrick [facility] PROTECTION ENGINEER [facility] 1.2.840.114 350.1.13.10 4.2.7.2.686 [id number] 107 [id number] [facility] 2021-08-02 00:00:00 2021-08-02 00:00:00 Abstract Rodrick Pete [facility] PROTECTION ENGINEER [facility] 1.0.114 350.1.13.10 4.2.7.2.686 [id number] 107 [id number] [facility] 2021-08-01 00:00:00 2021-08-01 00:00:00 Patient Secure Msg Doctor Unassigned, Timpson [facility] PROTECTION ENGINEER [facility] 1.0.114 350.1.13.10 4.2.7.2.686 [id number] 107 [id number] [facility] 2021-07-29 09:30:00 2021-07-29 10:45:00 Film Projector Operator Visit Ultrasound, Rodrick Forbes Antonio F [facility] PROTECTION ENGINEER [facility] 1.0.114 350.1.13.10 4.2.7.2.686 [id number] [facility] 2021-07-29 09:30:00 2021-07-29 09:30:00 Outpatient P [facility] [id number] [facility] 2021-07-29 09:30:00 2021-07-29 09:30:00 Outpatient P MADDIE ROMEO [facility] [id number] [facility] 2021-07-29 08:00:00 2021-07-29 08:36:27 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, Dylan-Rmchp Rodrick Pete [facility] PROTECTION ENGINEER [facility] 1..114 350.1.13.10 4.2.7.2.686 [id number] 107 [id number] [facility] 2021-07-23 00:00:00 2021-07-23 00:00:00 Patient Secure Msg Doctor Unassigned, Timpson [facility] 1..114 350.1.13.10 4.2.7.2.686 [id number] [facility] 2021-07-21 09:00:00 2021-07-21 10:12:55 Outpatient R RODRICK PETE [facility] [id number] [facility] 2021-07-21 09:00:00 2021-07-21 10:12:55 Routine Visit Rodrick Pete Demetri [facility] PROTECTION ENGINEER [facility] 1..840.114 350.1.13.10 4.2.7.2.686 [id number] 107 [id number] [facility] 2021-07-21 09:00:00 2021-07-21 10:12:55 [facility] [id number] [facility] 2021-07-21 09:00:00 2021-07-21 09:00:00 [facility] [id number] [facility] 2021-07-21 09:00:00 2021-07-21 09:00:00 [facility] [id number] [facility] 2021-07-17 02:36:00 2021-07-17 06:54:00 Emergency X CARO BAUER [facility] ERT [id number] [facility] 2021-07-17 02:36:00 2021-07-17 06:54:00 Emergency Caro Bauer S [facility] 1.840.114 350.1.13.10 4.2.7.2.686 [id number] [facility] 2021-07-12 00:00:00 2021-07-12 00:00:00 Telephone Rodrick Pete [facility] PROTECTION ENGINEER [facility]ILD [facility] 1..840.114 350.1.13.10 4.2.7.2.686 [id number] 107 [id number] [facility] 2021-07-06 00:00:00 2021-07-06 00:00:00 Telephone Rodrick Pete [facility] PROTECTION ENGINEER [facility]ILD [facility] 1.2.840.114 350.1.13.10 4.2.7.2.686 [id number] 107 [id number] [facility] 2021-06-28 01:26:00 2021-06-29 10:10:00 Outpatient X BRENDA VELÁSQUEZ [facility] [id number] [facility] 2021-06-28 01:26:00 2021-06-29 10:10:00 Emergency Alayna Bear S Didier Brenda [facility] 1.2.840.114 350.1.13.10 4.2.7.2.686 [id number] [facility] 2021-06-27 20:49:00 2021-06-27 20:59:00 Emergency X [facility] ERT [id number] [facility] 2021-06-27 20:49:00 2021-06-27 20:59:00 Emergency [facility] 1.2.840.114 350.1.13.10 4.2.7.2.686 [id number] [facility] 2021-06-24 00:00:00 2021-06-24 00:00:00 Patient Secure Msg Rodrick Pete [facility] PROTECTION ENGINEER [facility] 1.2.840.114 350.1.13.10 4.2.7.2.686 [id number] 107 [id number] [facility] 2021-06-24 00:00:00 2021-06-24 00:00:00 Telephone Rodrick Pete [facility] PROTECTION ENGINEER [facility] 1.2.840.114 350.1.13.10 4.2.7.2.686 [id number] 107 [id number] [facility] 2021-06-23 14:00:00 2021-06-23 15:33:45 Outpatient R RODRICK PETE [facility] [id number] [facility] 2021-06-23 14:00:00 2021-06-23 15:33:45 Initial Visit Rodrick Pete [facility] PROTECTION ENGINEER [facility] 1.2.840.114 350.1.13.10 4.2.7.2.686 [id number] 107 [id number] [facility] 2021-06-23 14:00:00 2021-06-23 15:33:45 Outpatient R RODRICK PETE [facility] [id number] [facility] [facility] 14:00:00 2021-06-23 15:33:45 Outpatient KIKI DENNISELSA [facility] [id number] [facility] 2021-06-23 00:00:00 2021-06-23 00:00:00 Orders Only Doctor Unassigned, Timpson [facility] 1.2840.114 350.1.13.10 4.2.7.2.686 [id number] [facility] 2021-06-22 08:04:00 2021-06-22 13:00:00 Emergency X ANGUS [facility] ERT [id number] [facility] 2021-06-22 08:04:00 2021-06-22 13:00:00 Emergency DwyerAngus [facility] 1.2.840.114 350.1.13.10 4.2.7.2.686 [id number] [facility] 2021-06-21 22:18:00 2021-06-21 23:26:00 Emergency Caro Bauer [facility] 1.2.840.114 350.1.13.10 4.2.7.2.686 [id number] [facility] 2021-06-21 22:18:00 2021-06-21 23:26:00 Emergency X CARO BAUER [facility] ERT [id number] [facility] 2021-06-21 22:18:00 2021-06-21 23:26:00 Emergency X CARO BAUER [facility] ERT [id number] [facility] 2021-06-11 12:44:00 2021-06-14 18:06:00 Inpatient X CAROL JOSE DE JESUS [facility] [id number] [facility] 2021-06-11 12:44:00 2021-06-14 18:06:00 Hospital Encounter Abdullahi Gomez Christopher Adum, Jose De Jesus Vick [facility] 1.2.840.114 350.1.13.10 4.2.7.2.686 [id number] [facility] 2021-05-30 23:49:00 2021-06-03 14:41:00 Hospital Encounter Abdullahi Gomez Shannon M [facility] 1..840.114 350.1.13.10 4.2.7.2.686 [id number] [facility] 2021-05-30 23:49:00 2021-06-03 14:41:00 Inpatient X EDITH TERRY SHANNON [facility] [id number] [facility] Results Test Description Test Time Test [...] details: ?Outcome: ?Pain relieved ?Procedure completion: ?[facility] CT Abdomen pelvis w contrast 08:24:04 Ordering physician: SHORTY ZAMRBANO Indication: Status post cholecystectomy, postoperative abdominal pain,upper [...] abdomen and pelvisdemonstrate no osseous destructive lesion. [facility] (62861)2024-02-22 06:46:27* Test Item Value Reference Range Interpretation Comme nts NA (test code = 0045825768) 138 mmol/L 135-145 K (test code = 7009449623) 3.9 mmol/L 3.5-5.0 CL (test code = 9167084233) 104 mmol/L 98-108 CO2 TOTAL (test code = 5743330303) 22 mmol/L 23-31 L AGAP (test code = 4738329871) 12 2-16 BUN (test code = 0665318033) 11 mg/dL 7-23 GLUCOSE (test code = 3525216733) 113 mg/dL 70-110 H CREATININE (test code = 2160-0) 0.50 mg/dL 0.50-1.04 TOTAL BILI (test code = 5798961269) 0.9 mg/dL 0.1-1.1 CALCIUM (test code = 8731005446) 9.5 mg/dL 8.6-10.6 T PROTEIN (test code = 3547485353) 8.5 g/dL 6.3-8.2 H ALBUMIN (test code = 6158718001) 4.8 g/dL 3.5-5.0 ALK PHOS (test code = 5419855477) 81 U/L 34-122 ALTv (test code = 1742-6) 15 U/L 5-35 AST(SGOT) (test code = 9329900413) 21 U/L 13-40 eGFR (test code = 90408-4) 132.0 mL/min/1.73m2 CKD-EPI eGFR (2020). Assuming creatinine has been stable day-to-day for at least three months, the eGFR indicates Category G1 (>= 90 mL/min/1.73 m2) Lab Interpretation (test code = 08645-1) [facility]:47* Test Item Value Reference Range Interpretation Comme nts LIPASE (test code = 6267495281) 24 U/L 0-220 Lab Interpretation (test cod e = 68528-1) Normal [facility] WITH OXDS0029-07-41 06:27:08* Test Item Value Reference Range Interpretation [...] 33.9 g/dL 31.6-35.1 RDW-SD (test code = 86018-2) 48.3 fL 39.0-49.9 RDW-CV (test code = 788-0) 12.9 % 12.0-15.5 PLT (test code = 777-3) 402 166-358 H MPV (test code = 81066-7) 9.3 fL 9.5-12.9 L NRBC/100 WBC (test code = 2369002484) 0.0 0.0-10.0 NRBC x10^3 (test code = 9329501907) See_Comment [Automated message] The system which generated this result transmitted reference range: 10*3/?L. The reference range was not used to interpret this result as normal/abnormal. GRAN MAT (NEUT) % (test code = 770-8) 89.3 % IMM GRAN % (test code = 8936829185) 0.40 % LYMPH % (test code = 736-9) 7.4 % MONO % (test code = 5905-5) 2.7 % EOS % (test code = 713-8) 0.1 % BASO % (test code = 706-2) 0.1 % GRAN MAT x10^3(ANC) (test code = 4326776930) 12.26 10*3/uL 1.88-7.09 H IMM GRAN x10^3 (test code = 6827649056) 0.06 10*3/uL 0.00-0.06 LYMPH x10^3 (test code = 731-0) 1.02 10*3/uL 1.32-3.29 L MONO x10^3 (test code = 742-7) 0.37 10*3/uL 0.33-0.92 EOS x10^3 (test code = 711-2) 0.03-0.39 L BASO x10^3 (test code = 704-7) 0.01-0.07 Lab Interpretation (test code = 03779-4) [facility] Scin6076-42-28 17:53:54* Test Item Value Reference Range Interpretation Comme nts Case Report (test code = 6101745462) Surgical Pathology ?Case: [id number] ? Authorizing Provider: ?Eva Bryan MD ? ? ? Collected: ? 01/29/2024 1200 ?Ordering Location: ? ? [facility] ? ? ?Received: ?01/29/2024 1228 ? [facility] ?Pathologist: ? Brendon Dawson MD PhD ?Specimen: ? ?GALLBLADDER ? Final Diagnosis (test code = 1254952963) o1nycIYeAWPju2fmSYXiiW FuZzEwMzNcZnRuYmpcdWMx XZprflNjRMctuIrxLCU8QC TnLD8yfKwngMf4kMkeFVVx iqQ3aVClLQodh4ioBCZ6b1 ybdrlnJLRwSZskMb6mnTWe dDyfAiKgRUWxRKc5vB54NS WfvK7mfYScGLi1SUOxqSUn wsTpJfQwLPJgyMTibJB5MP RrKV7oadlrRFjxJVlqUOYg baK1AJSvdXXlC5GbIMFaRS 1thwgvZWD7FVkbQDFfNNR4 JhTiWHIlz6Ogbdt3LrTfjN FyZFxwbGFpblxmczIwXHBh ciBBLiBHQUxMQkxBRERFUi uuI6lGKIGMJXEZJNENV16K OiBccGFyICAgICAtIENIUk 3YEORfI9tBSTCTSYBRRRTY IcBMJYYNRWSJK8yPS9RNXi 5JV1FXU7sfALIzONBgSL8t W5sNSRWFCJMSXHHTWTJsuI FyXHBhcmRccGFyfXtccnRm RJdyi5XeL9HhLfDfYSplpz NpXGRlZmxhbmcxMDMzXGZ0 bmJqXHVjMVxkZWZmMHtcZm 2wqRMnqAcdTyAwWYPqu4xj ioTRHNalXiJoY366UQKlKA bmz5zoj9EuBLArzHNrr2Z9 FCANzlqtpJl2d5nyPoLbOz L0rMEvLQqqC8hhnsQnhZCc X8HanDRiyOy4bFihN01ez7 R0CmmfJ9hnXOReRNUuD9Sg HN8tSYJuTsb0OTL7IPQ5CC MtWADxF9GqMN1gQWLhaJFt LRz7r2hzdTgbCMAaHWK9t9 bnIVxgphC9BG5awk3smCx7 r3gireUpZBYtQOVsdJGXRY WvG8VprXqiQk7huGn5tZma CcopOCY1Vjc0GI8day45wj i0rTmjYUFwocrxBiQ4GMbo XHJodjdgNBe9BMfeQURtdZ M0GNLrlOUxX8TxWYLfGX1p cfw4FPF6VCzlALZpXrU0BV VgxOXoBEZptRawERnjt491 JKA0BpNrZK3yE5Pju8E6vD 9maXRcZGVmdGFiNzIwXGZv gs6siZZhORney2OnGBB5ra T8aXJssKQiQLViWB70Xtqs s0WjRjzmLAK4UDPxfbVky3 Esm4flDlDpnzTtN2wzN3Ix ZHJoZWFkXHBnYnJkcmZvb3 Sdh9LmqBZnzKh4f2xbRZPm SHFcpZnoy6oiWIA2NHSnS5 D0zHPst0ujUZxjYCErdUD8 yfF7FCQpcSSxD1PdtU4fQK EsNO0biod7t6eoGUZ0HHyh ZUFdJdJ0qcF8YWMdcIVkKN UvwXfpVVprb272MUU8WtBp RVVqf9OxQ5OdvDwcW43akF xwQ21iLGNmzTjglT6kmJwe eQ2iPkOsAlIcQTsgxFgrbZ FpblxmMVxmczIwXGxhbmcx YPYrZXxcL6nzQsUjOUDkwW hhCChdg4XfZFKwIRTzRubn czIwXHBhciBJIGhhdmUgcG Djw68lMOmwxCIjJQBpNLts JQDfvKkam9RxW4qyXW5gP4 NsaWRlcyBhbmQgYWdyZWUg v3z1sPQgmZagp4YshBOfXC 02whPhKTTbWRE8NOXiv5ef YF49kxfpLgAxxP39kzUtia RyPCIqm9zoZ5yloINzm1Kn y1ZjciGjMCdty2NeAJ7xrG NdqrgjuRU3JHEqcPNeooJn xoV1vTvhZLHvkL5wuW1btJ sduF4zJqUoHwGqRHpaVF7i BZGjM4yqmWPlSXOuJTNuU4 eoPcFkpE7fsGbvGmjhqjQ9 GDNosk92 Clinical Information (test code = 7441551900) Abdominal pain, epigastric [R10.13] Gross Description (test code = 2441014286) j7kujCNsDLOfcXFRKUX5WC TjYC0rcGjpqQb0uEpxHPOb yuW3oCYvXUkoy3vwSHN4y4 dtfzTTShbwBEWpSL4hJXvh WDNcVX8iIcZwFVKjSbTaLF BhcGVydzEyMjQwXHBhcGVy tKD1PMDrER8ylucjEDofVX hcVNVwrdN2YSPqcEPgM5Ps ADKtQK8xmzmlVMY9FNYFSl fiZz7tyGAzmEgzWqWvTkIk APXgBSMyGFCcl6sencIHvs fcrLs8vF1SKBAkX8ZdVM5P z4bhJBBcvOWhBUT4NBley8 ixBGrhCCP6KWZyXCEdPUPj KE9QAiIxHGZ4BFl1NeM1Jh K6PHo2AYEBQSMmEIE0ZUq9 GGD0XIn7XRFpYE3hOXjlrY DlKOgsEdyuQVdtO416AWmc AFIiA4AcK5XrNNbfHcCsKS poGQHaLWNeJCthMYKkC6IG IKRfFCN1HVA0LkJhOTv1GI k6TS8YHpGbMQPeUNMhQAJ9 DMWtDTr3MPdcVR9CFFBfWb P6VOV2UfcqJOGjBDynKOl5 IDIgXFxzcyAzIFxcZmwgXF rsU97juOKrMWNFBykjpIYg blxmczIwIFNQRUNJTUVOIE YfcEPlG1qnLzAkOxtgVNGj DQpccGFyZCANClxwbGFpbl xsdHJjaFxmczIyXGVwaWNO TDG1AV8zKVEOFrlmdLKlAR GtMOlVlPTomT6svuXXIIrt VDJkC9ZbufTrGGrmSRAbhv 4qhNviWGnqVnSbVLYxk5x3 kOI2nBJgmZP0hSSzhPpyKB 4ltPAnTLZELO39tIYmeioq ImdhbGxibGFkZGVyIiBhbm MmU62mj4jnxQEsd6StLYW1 RH4lxIuhvpUjbdAhP6JwF1 FsbGJsYWRkZXIgKDguMSB4 GLBhQhB1TWIrOJIjeSerq9 c1aADiYBIjv501pDFaGTTr x6VzHWC0yqTfS2AuZR2tZM Jjxc29I8qtZKW7DS53pXQu FXrzt0GnRsUnWX6tAOTwAX EjvYN3wJIrVZDihLYlWUUp hE5ujLStkN5uNTZxQgyjF7 qtAVDZyZTey5QsI1kqBC4r oJMch3MozzRwZGEjOZBgcf TfxLJhxS5rmNSqJPGsu1Mn jEOfVhI8ZL2xrsYcSMCix5 AboGLaHyvsFTY0fLDdAWQo zVSzVVzpmUzaxiRgw3SkSE cauJPgTWFywJJ2nAkeCNAh ShF5FKGaDDI7YDNzDoLzeT UeaaBnRF77QSguVB13YFjx GR3yVDGeFM1cZJEmVJUxuF Vxk9JxoNLfcGWjKMTmWEwq sgKtucI3jAqyn95xo0IhBP JdlVwkoAIkcCSbZX14BFHl RNftiCdkAK8vUPG4gfSyli PhJM4zlE80OV4sBDzsgExz bfWqbJKkn7ozfeowDVOLtt QuQWGyHULjcCNjBLw6eBAv AL9cJZUuaKOizXTlwhMvEa ylZJ5eXIMjWSO9CPhcORA0 TTLxK8OoTEFwEqZipTA7kD jjpe6tAKEvdJItl9SrsOY0 zIPlZCQzN8Ntu80lVLCfYJ XsmZIcySZ9MAPueE0eBLZf XHBhciANClxwYXIgDQpTYW oqsUFcCBitRX9sAPCOVZsJ A8IZWVFseQGpeBUvvRqwNd gwuQV2GVslSqxctK6baHPC EHZPMapJUuiqdzAnBE9HZE 9CLuQNMQ46WkKkQEJugFG3 NWTRJZwguPz3KNl1gEyoSs pmqbEjnFMnOdQBrM0uCw4p ED8iPUT9LJM6VfG5o9gqkM YkDKxsXixhnMAqxcR9BLeM NXLBHSiDIvMzRZ4vQZnUDy dCPbR3YbToYJYtqSJ4CIZN NAnzcWb0YMd5lAkiQjddzp RdmSQjBzTFyP6vjXfqsD5p lDDiO6nhCvDlEcjgRRInKJ zhs7QuFScazCxxVXDjJqLd RFtiDWJdE66wh3PMu3Qbw4 icqIzob8OcwBLhZA43ZNUo mSDtWUX9OF0loHnuDRJeSK pccGFyZCANCn0= Disclaimer (test code = 7168437559) c7cbyURgNRIoa0cwNJUqyA FuZzEwMzNcZnRuYmpcdWMx HKjpdxVsRWxzp6HkK1IqFi AwMFxhbnNpXGRlZmxhbmcx SLUkGED7piRaAGNnPTtlGT IhSTxpGz3yeQGykUixYhAo PVKey6oopcGAIUarTaDvJ8 58UBPwGWdai5zwl5EmFZBd aZEie0S2PWQHvmkpnBg5jC gmZ77pf4O6RcwjX5exXFHy IGImM1XuVX6rTNRuWlz2JF E2ARC9QIGeLZEcV7UtMT7y RZPeoXDySRa0g5lbkHzvNE NdZSJ1f9ciZCsuqoDrZX7s ta2ldWk7f4wfmiBdVHKhRP RhxSGUWCKzH0IpjHelVd5l fAk4cGdaOzkdRTN2Yfi0CG 1ecu98mow8yEvxOFFklqct AbN0BFozUTWoqhpyVXz8DJ viIQMqoAX3LXPanGGzR0Tu IGKhYV1wuuq8BJA3RXvqKK MkWvY3ZZZimQMuYJLoeTao EUyce216OKL6WbNtWJ6aU5 Pvk8U3fA8qiWSqVLDjhZNn VzWsNMCwoq3ciFNtBHpyi5 DlRYF2geM0eLAmbDYwTUJe UB45Nsvrx6WuUnztb7UoP9 9xjBH1VVrcg9vxGU9eTiA3 wsRcKPpph9vxfA3oSaY8JX zsLB8nRQ8vAVHxmP8nvefp XHBnYnJkcmhlYWRccGdicm PoNi3shPueHCC4ZPfeN9hs xR7iClA6IVwgL2fnpL0jHF l4EFrsgKT3AAAnrC7sAT0o vropq2sgUNfuOUctZBIobd M8nxQ8WIOvaMQnH2AwvJ2t FOUlRF1imelue2hoGGC5ZB afXASzQDO7JjVoGNNgz3Ek yqc1BqYsx7HeaKAsBKfsM7 9cq080NLUddfDoX1ayhWPz jzkchRFfmpvnTHfojuT1WP KoccHpt5DsNLImGPQ9RAjc YFhbuGOpYWEefKrok2wbG9 RscGFyXHBsYWluXGYxXGZz MjBcbGFuZzEwMzNcaGljaF mmDWycTwLlSVDpJQmoV9qv FcHhP6ZdEYAdMwBljIKfE7 ggVGhpcyByZXBvcnQgbWF5 PRlfH1q7JRTovaSwlMb7ew MgFvLgWZQwBKD1QVublEUp WJEnz4ZcemnkwCBjVd5exA WuTNEouY9bLTBdSGWdZKkv YQ9gkMg2EUSUbPQyfDIqOj DRUDRoDW84ddYfXKLXidvd l8N6ZNpuLWFii5LxcDPbT2 wgk6LfTLWmx27sJW7tl0D5 e2ipUBF1LV8sh3RnUIYyoR KvaDOnKHVfe9Domwjvs0Lw LJBsdbLld8JkKNTnjmFafR CjUHNdccHqzi0elsYpKFKm EVZfC5LtbuyvmRnxczDwJE Mhkd8jjaDlITV5KILIGMWq CIEkg8NalH0rwVVHCRA1gJ Akab9bycSKqBEnFCLfog07 RGBqKU8fK7ixHIYeNUBroi JlyMJpe0XvBJAnlKG4yDZz LK7RMrSIo81eBLGeZLCBzd NjRXCzwEvuyCS5byF4iA9y IChGREEpLlx+IFRoZSBGRE ZfZT6kmuOni6IfbfFqqZto KIEegAZsj2OikAFdt8BxgN prw7QupWPdvADcCG6pDPGo clxwYXIgVVRNQiBMYWJvcm O0d2MpRSEoKELjUPA1fFjt ecj3FFOeeU3wMDRxK1hchq azLCjlBWWhz7YqfY1qnOPE tHCnu1ZxbHMzhPINjVOtRJ 6jfhNxKEfQNGxNUFE5rqJx IFFez3QwNFjbE0kwJ87wpO rliAa9wNZ5RXY3mV8dDks+ IFxwYXJccGFyIEFwcHJvcH EnDKUkuFloptCcD4OjdmBn hF6wxWWmppKyXO7fBZ2bV9 U9vMGgORNwzfUpl0kcAHri dmUgYmVlbiByZXZpZXdlZC Lvp8XvBDtyALF7ETkdmwGb bmNsdWRpbmcgSCZFLCBTcG DkgUXfPJA3LEpetgUrqxYy MZ4fwD7rmSovyK7lxQRigE E6uzbzIYRaOXPbiOgiLTAc IY4kkNbbhZ6lSxTiIeAxEO ezWT6mTUAaB6ytbBIfSTYc HLOgC5eeKnTfhP8voDgqXX xjZjJcZnMyMFxwYXJccGFy XHBsYWluXGYxXGZzMjBcbG FuZzEwMzNcaGljaFxmMVxk IyWjIEYaFFlqQ4fmEdGdU3 KwBZSlFxKseOTpE1soWIxh YCH7IQTnHU4ibMEcEQ05aR Rmr2bwEBtzdLtsne0iS82g rMEtYKyzxKdxDIZdv37pw7 HpJUEiugOfbn8gSEPtgjO3 tI8jOYXitGjxINPqhSZcGM Toi2JdPAgtlJFxrgDyVIcx PRYjLTFegDJlcbW9uvHqfj WflyNiYCBcmGipKAWid0Sh UVAyLCqri7Tfyh5hqVZqJK IdugGFcAlkuWVtyW7tC7In VWTiVDOvna8lQZYunC8uRT vid4EroxkjEPCfGOUiQVUt vbCsei6uZEHdwXVVCL5DRB wbgJQnt6KrweKlT9uVURY0 NUQwNjYwMjgxKSBleGNlcH FiLTQzet94ANDhwY0ktXog RJGqwG1lpM7rhRqvgM7jWq CwLiLjZDlzQQ1wZHHnI3sx gJUqPLUtLGYvR4srSaRntH 9jaFxmMVxjZjJcZnMyMFxw YXJ9fQ== Embedded Images (test code = 6795661687) [facility] 16:39:00Barbara Cartwright CRNA ? ? 01/29/2024 11:42 AMIntubationDate/Time: 01/29/2024 10:39 AMUrgency: elective Airway not difficult General Information and Staff Patient location during procedure: ORPerformed: resident/BEHAVIORIST Performed by: Barbara Cartwright CRNAAuthorized by: Radha [...] atraumatic, dentition and lips unchanged from pre-op. [facility] Sdoq0523-95-49 16:19:00* Test Item Value Reference Range Interpretation Comme nts POCT PREG (test code = 1605) Negative On board controls acceptable with C Line (test code = 3574) Yes POCT PREG LOT # (test code = 3575) [id number] POCT PREG TEST DATE ( test code = 3576) 05/27/2024 [facility] Rygy5932-91-45 16:19:00* Test Item Value Reference Range Interpretation Comme [facility] (test code = 1605) Negative On board controls acceptable with C Line (test code = 3574) Yes POCT PREG LOT # (test code = 3575) [id number] POCT PREG TEST DATE ( test code = 3576) 05/27/2024 [facility] NSOU6021-40-53 10:32:00* Test Item Value Reference Range Interpretation Comme [facility] POCT PREG (test code = 1605) Negative On board controls acceptable with C Line (test code = 3574) Yes POCT PREG LOT # (test code = 3575) [id number] POCT PREG TEST DATE ( test code = 3576) 2024-11-23 Lab Interpretation (test cod e = 31713-3) [facility] GXHZDHWRVHVKP3676-54-01 15:14:36Ordered by an unspecified provider.[facility] Pathology Hrog5067-75-89 16:13:04* Test Item Value Reference Range Interpretation Comme nts Case Report (test code = 2838378267) Surgical Pathology ?Case: [id number] ? Authorizing Provider: ?Yisel Hart MD ?Collected: ? 12/24/2023 1057 ?Ordering Location: ? ? GI Endoscopy OR Department Received: ?12/24/2023 1148 ?Pathologist: ? Brendon Dawson MD PhD ?Specimen: ? ?STOMACH, 1. gastric biopsy ? Final Diagnosis (test code = 1902587312) g7gsbZVwEGGbr6vsDEAusNFyJ zEwMzNcZnRuYmpcdWMxIHtccn StZEvndInbQJI3YYPyQI6sxPp oyGe7lIrsNJOlbpQ1uVBaGVty c9vgQTN6g3fkbthiDPVgZYcwC k8svRSxtUkkAcIlTIQkNDf7sF 49KRXdtJ7xuAJlVHe0POHlgJD vqrPfLaAnDFBqqENqxPL2CHJe TC8dolgyXPwhGHzxNFJmstS1Q OYnqPRsC2FkRETtNX0nmubxEQ I4TCsbKEYrIPK3AyPlDOVmn1Y nhdf3FmWmtLRrUBzlzFDbzebr phPpQFWcjgLFSfHORS1LOBZLB GIJUI1LB6f1JMGkkefqoEE9BI FsTTtAC2YGFSJiIVWAF0HEXPs UDGfxPx7pCWKRFD4GG2ePK2PP MRAXAT7ECYiqVASrSGUKNtDEJ 9FGOckLTKSGLeERHzITP5JIYk UCYE1NNZXPQASPVYYuWYHZLyI JRklFRFxwYXIgLSBOTyBILiBQ WUxPUkktTElLRSBPUkdBTklTT VMgSURFTlRJRklFRFxwYXJccG DyAWpbUTG0o7rgyBSnABNbdUG aNiCvQSMqYBMoc0wxTCPqcFXw ZzEwMzNcZnRuYmpcdWMxXGRlZ kTpk9irv200lNEql1wpMDQzYh P2kDJvYASujZapfqy8lZozVxG gVMVqz1knedVvKaDcIZGoNKPo WDXolTNkX761UTKzPYmey3zpe 6YyDGKkvCRlg9Z4YCVSTXccXg NaR528i6kgr9nespRkxLY4XBT bZKD0EAocfdFdkaG1DFkbtHLt VsW7YBgmnbUcASaqreSwhsHsE mo2OJQmS214MHK9bWgqs2qrZO Q0QRRxPFByDzdrTl3vhPOsF34 7HPKxNGIMPJCvaZy3OCAoifWs hmIplZHZw998B625k0xtMTAcn sEtzDnBioflp5emM230TWLgkI NatmOyScIwXGKefUEfjMD0RAY vUQ9xyikaYWiaMNiqYKNbclP8 NPPlxVAwQ1NsQZFpAB6mdyhwV SB3RKtfYHXrHMO2WuUiRFFrb7 Twlbw4TuUsrh5uev84RNM3l6V nrLubUMU8UGM5WdApAb7fyVGk CKEjNC2dAuCxjFTkBWJmvt99b ItrMCqrwfVhnF1lLhThUEQilR TnZQMbAD0baJWbTSYviN2oynr jXHBnYnJkcmhlYWRccGdicmRy Pb5feTtcDJN7HEraP8bqqX5gB hZ6XTogN6chwJ1yYTo9QVqxrP K0CPHvbV5kWS5pdmrbh6gxPBr gPYovTWVbwbH8njX3GNSafHBt A3CqwF0jLAGpJI4jniemc8idA GF9LHyhGQMsSQD5UdAlZMRdd2 Vzqhy4NkTja9MhoGTgMNxiA45 wz310YSOaveWtY2zekETfccid ySFwnhasNHxgldX5OHFbXXEzV WluXGYxXGZzMjBcbGFuZzEwMz NcaGljaFxmMVxkYmNoXGYxXGx iH4onYjKzT5GdRBQtWlQdxDRy OXtbpQL9QBLiBMMhx99pmFy5A SVvnsito9TuKGPhvRWipEGtkC 7lgpOrl1rjFBJwMWKhPUDiG4J lNUA1lNLsITWysTYchKX3KQ4f qlWyWH5bLHWlXvuqcwQwtFOxa pEoNYDfSVfxd1scNO8rHCMmvB cvjT2rjUW3CXZen8mxfGTpbGM po4gty3UodjLbPAppVZPzVLlk VQLnFXIyEZ7sCNOhjCRpgqRnw 8W6OnqceCTatlefJxfnlyX7UL xlumviWRYlZUatE9frXiFbWPE htCdnFxdqr9QzUGWrOAXjIdnc cGFyfX0= Clinical Information (test code = 8808236311) Lanre Bales is a 28 year old femaleHematemesis with nausea [K92.0]Coffee ground emesis [K92.0]Abdominal pain, epigastric [R10.13]1. gastric biopsy eval H pylori Gross Description (test code = 6940648292) t3knaOFgBXSucIZNWBP3YTFcQ T9qgGghrFe2lHdzEHJrlcK7mB OhTLhxf7fuHWC4t6brxaQEHtt dMIKhZA4cVSecVUXzCG5uXfKq XGRlZmYxXHBhcGVydzEyMjQwX ZUqwDSroSQ6BJApVI9wjmhgWS fgCFgwRZBhzaZ9QKWjnILyB3Q cTRQdOE1hiscqJZE5HQFELeqa Cg8yfMVihJnmRzEeDwDaRBBiN SRnLRCto8qndcBWceiheJy1iX 2KBENfR1UcCK7Of2rhRMUkuZB fVLC7UUpxi1jxNHwcZLW5PXSs JYVoJIFzYE9AEfUeELX4VCz2C NFkWuM6RVw3PAGRDNUsJAF6PJ Q5WcZ2RVe7YMEiAV0eYHkgyBT nQZkoYnzdGBgoT271FTjfFDLr V1QkZ5GiFNntJlXyYKsbFWStI LIlVPivCVOgR5EFXQTfCME9XP M6AAEdSOd9JXd1BO4EMwFbCAE mSgv3FfR0BULkMXq6CPphSV9B TRDbRJN6UXngTdHpTGJkXKKdF Gz9KYSyVTnuqmWsNKhqYeheEQ nfK90ayVHiNBOXKboxtTYthgl mczIwIFNQRUNJTUVOIEFcbHRy M2piIoMdRtebBBUxJLoxrWJfL CANClxwbGFpblxsdHJjaFxmcz CvSLXhgXYRYDH4XW0qCQYTVca kaCEyLYUlZAxJtOSilT4cwfTV RIwxJDRrQ9NkflTuRLohKOKdq s2egNajFCzbWkVstAFlVUrcmE bjmVccGIYjwGonmgLvF6Y1odR pKO9vXSLJLAChbZ5yPAStYWAf u9NlpUEtcVsoD2JjwYRoIwOzk D4it1zuV7M0LUlJWEWqneUyH0 1vi6pliFNcs2HxGmW0QC4soAt rpsQbovJfU9EhERUob64azMC4 kNZtxNRzQbTuK08wszUsHYkrM xLeHK63SCQoYEumZJS8MBC3PB RyoNDql4phsaqaFC21EEipTJ2 2TWowKH2wFLKaCVtzPBYbH5Et N1Y9UNzdMJJtIJPwtAKbrQ9av eTomnDjdEq4OCYnNRW0bHQjqP faCGFcMjgcsZA6EFKdXfUyfpH rw3JtkMq7mABgHVbzQPNcfZ3e bW6hIPZlKWRkmtDMSjhgSSFkB Jocb1MfNJozvQykYEMiPgXvKO uAlZagGQAGV7lgoHYzBGfeVUN OYNuKY4GDTU7ALCRrjBULYFV5 ZC4qEKaxGPLfA2CrO1CecbJ5j 9nmvWibv5BipODaSH2liVBeMU 6WPCYmflQxCUu4 Disclaimer (test code = 5831910339) v7kqpSUfZCWlx9hmDXRdaLRsV zEwMzNcZnRuYmpcdWMxIHtccn FrHGnmf8NxA2JjFqDfYCilfgS pIHLsAsbxnzetJQWiMKQ8tsOm RAZuJAdzYUBvDPskHa3zqRGsc JsjWuLvDUAru9fjevBDFAdgJm VjB336KCAfPXmsm3ppk3OxAOZ xoNDkw8T1FPLVskjxdJb1mLki C94qm3K7NrrfG7kmZQTsTUEiV 0PpZP3oJHEyIdq2TWT3HZD8AH KbFOTiY2AnXF2eETZjcOTuPCp 7p2tgoPhrIDWbWQR4d7wsKBly jyBbSN8doq6ahPu6s2icxtCkZ NTlDTSbnVUMPXPcJ3MkkYllVr 8njEo7yYntXnvcFOU9Aou7FL5 lnw51fng9uOtsFYHxkrckZmQ1 TJotVCUqrptkIVt4IIznKWGzu SW5BQOegGMjA6YzXFAqLM1uzn l2BPH4CGjhQKHsJvK0QQDtaUS lLCZrxGskSCnvy564BMI1RvKl LY4cN2Ekb2F4tP6lmHTdLMBst KTqXnUsIJMunr3meJBwGSnon2 SgSJX8lzI1jHZsrFJkXYLbQM8 3Ebpkz1FxNpuki3UcB94lwPB4 FKrsy1vfKR1aOrV5mmOfCHhmt 4dmqJ1oPeQ0VRynQE4rEI5zVH ColT5jgbubSFFmXxGvdqceQAV unZmyleDwVm4wqXqpSNR7FFsj J0hfdA1tAwH3FCnuO7rwqC0rS Pw1GCnhfET1SVQphX6fZI4gsc yrf8khNTceELxrVZUskvV6ekR 2OMYpfTXpP7RkmG2jWPBhYT7j cektl4zbPPX6BWbpXFVaBPY4T nUjYVYvb8Mvmml7GeBti9PlwU FpBUzmT26gc800UIAmjiMnT4j wbGFpblxwbGFpblxmMFxmczI0 TFZjlqNjf1EnRAOeMVZ1RPysW GytzMYhQFPpsSmst1zbR3YbvS FyXHBsYWluXGYxXGZzMjBcbGF uZzEwMzNcaGljaFxmMVxkYmNo YUKyCMccD2neDxFuU3XsJZOcU hUhrVWbI4hqBJuvuqZqDPYhoi EcuJS8LQpoQ7y7EXSdmfTacNc 1rfOuCbYnERGzKYU7ERmkkURx QIKxt1ZzmqoteCJyHe0tkHBtD YQuqP8nGCRoZGReTKvwIO0hwV x6YHQIvHUysWYbOjTIJUYrRL5 3utOdUHCKcwazb7N9CTegKEEr g6DglFMoW5iec5BiKBOvx22mL U4wn1M6c4pmRSZ8QK0ee2NlIG JtnJHnqKFrVSHgx1Orkvjvk4Y iTGCdohOel3XuHZPfgrIxcYTp XSDovaGltg4cwhLaJXDoCXNeF 1KubagqkNrhzcPmELWajf4ite KkRSU4SSDICLHnSRVza6SqfE4 fgZMQCYG7fPHrsc7frnKCeQRd UUQrdd94CWTyIH4oX2tdFUFwZ SIzflEbxYTuj8JcLGBduOF1qN YjWI0XYsTOw94rALIqPQTIlyZ cYMIdgOnyaWR7fjF0aN0rJHgG REEpLlx+SATlYHXAZIQdLQ8km gWvv5AidgSsrQnbYHQgoODcf9 UmoABfx9BdiSyki1DorDLfySC lQL3kESVzxfinEIQbBYCBXcKG GGCanoZ2n0EdEOTjMVIaIBN9d Ibefko3YYIjvZ6fYBRsW6hyzd wfFIvlNAKwb0QevV2zvYZRnFS ct3GlbMVnbNJSuTTpPJ0lamKn NQzREGgDMIQ3qiFuPIOdk7VbS EcrX9lfZ24fzCrcdEo9sEI5OC C0oC9vJja+IFxwYXJccGFyIEF uwAFmvQBvCTEjgKywirUtT7Ys jzIjgR4hsXSbedAyXL0oRH3yZ 4E6mCKwVIUolkBlf8ltLUhmhs PsTsDncgAnJLTpRAzkODBay3V pFLvpRZK9UPfireUkpnMotMUb erzzJDCXGMQPdSDvhNWyBTV6B RfmhtNxlsQdKB4wjX4zoBlewB 4zlEYqxWO0ppixCDPoPYPmgMu jOBRjLA0xrLdauK3eNnKoKaHp OPciEX6nOLEgO1fodEKwRSLdW OPhQ9rqDjDxwM6rbXtkJZftJl JcZnMyMFxwYXJccGFyXHBsYWl uXGYxXGZzMjBcbGFuZzEwMzNc aGljaFxmMVxkYmNoXGYxXGxvY 3toKhZsN5AoRNUwCjZnaWEkM0 oyHNetJOP4HEOyZJ1vzZChVP9 3sQOsf9aoLPaorOghwb8xT45r nJUjLSexjVlaEZYsh61is6OrA CZfbxWljy9gCNYzkdY5xO4tBP UroUkrRYGcrXElSGBwv5HeNHh naXRpemVkIGdsYXNzIHNsaWRl ttS3zzNxcaQqipZyPNKcxJtzP CKgj9XaYTStGFjte9Ahmf1egU EuLFOwgvUZeBmdnFCjbG3sE4S dNWOaPUCaxm6hESZyfP9eYThi m9HiebqbHCGxTIOuBYPwdyEvq v8zIUZntYYRHB5QZYpwfUJot5 IocfWhL5yNMZI7RWThWnLiZti nKCIdaABhiRFfCKDdyi98EFQo qD0vjVujVROuhJ1ssG1amZpys Y2xLiWjUxXzATqbTV1oFSRfP6 gnbPKyMSOtUPMwD2frBvItvJ4 jaFxmMVxjZjJcZnMyMFxwYXJ9 fQ== Embedded Images (test code = 9367607039) [facility] [id number] 16:40:41EXAM: US OVARY TORSION HISTORY: 28 years-old Female; Provided indication: eval for torsion; pelvicpain; bilateral 5.1cm cysts seen on CT . LMP = 4Pregnancy test = Negative. TECHNIQUE: Transabdominal and transvaginal ultrasound imaging and colorDoppler evaluation of the pelvis was performed. Spectral Doppler evaluationof the ovaries was performed. Refuse Collector Supervisor images were obtained for therecord. COMPARISON: Same [...] Normal flow is seen on color Doppler.[facility] PELVIS W [id number] 14:33:00Indication: Nausea/vomiting ? Comparison: None RL: 4209 [...] tissue: No acute osseous abnormality is noted.[facility] Test, [id number] 11:59:46* Test Item Value Reference Range Interpretation Comme nts PREG SERUM (test code = 2353959157) Negative RUMA (test code = RUMA) Less than 10 IU/L. ?If low titer or ectopic is suspected, resubmit specimen in 48-72 hours. [facility] Metabolic [id number] 11:58:40* Test Item Value Reference Range Interpretation Comme nts NA (test code = 6569718126) 138 mmol/L 135-145 K (test code = 8403641801) 3.5 mmol/L 3.5-5.0 CL (test code = 9321389096) 106 mmol/L 98-108 CO2 TOTAL (test code = 3524094175) 23 mmol/L 23-31 AGAP (test code = 0826803243) 9 2-16 BUN (test code = 9421696671) 6 mg/dL 7-23 L GLUCOSE (test code = 4588572345) 122 mg/dL 70-110 H CREATININE (test code = 2160-0) 0.61 mg/dL 0.50-1.04 TOTAL BILI (test code = 0111523701) 0.6 mg/dL 0.1-1.1 CALCIUM (test code = 5114767373) 9.0 mg/dL 8.6-10.6 T PROTEIN (test code = 4405406686) 8.1 g/dL 6.3-8.2 ALBUMIN (test code = 0001730239) 4.4 g/dL 3.5-5.0 ALK PHOS (test code = 0516230846) 85 U/L 34-122 ALTv (test code = 1742-6) 20 U/L 5-35 AST(SGOT) (test code = 5090552757) 19 U/L 13-40 eGFR (test code = 64493-2) 125.8 mL/min/1.73m2 CKD-EPI eGFR (2020). Assuming creatinine has been stable day-to-day for at least three months, the eGFR indicates Category G1 (>= 90 mL/min/1.73 m2) Lab Interpretation (test code = 78754-7) [facility]normal [facility], [id number] 11:58:19* Test Item Value Reference Range Interpretation Comme nts LIPASE (test code = 8567473531) 40 U/L 0-220 Lab Interpretation (test cod e = 05480-8) Normal [facility] with [id number] 11:41:57* Test Item Value Reference Range Interpretation [...] 32.8 g/dL 31.6-35.1 RDW-SD (test code = 32304-3) 51.3 fL 39.0-49.9 H RDW-CV (test code = 788-0) 13.7 % 12.0-15.5 PLT (test code = 777-3) 349 166-358 MPV (test code = 71095-2) 9.3 fL 9.5-12.9 L NRBC/100 WBC (test code = 7670758835) 0.0 0.0-10.0 NRBC x10^3 (test code = 3620983342) See_Comment [Automated messa ge] The system which generated this result transmitted reference range: 10*3/?L. The reference range was not used to interpret this result as normal/abnormal. GRAN MAT (NEUT) % (test code = 770-8) 73.3 % IMM GRAN % (test code = 5057950464) 0.40 % LYMPH % (test code = 736-9) 19.0 % MONO % (test code = 5905-5) 4.8 % EOS % (test code = 713-8) 2.0 % BASO % (test code = 706-2) 0.5 % GRAN MAT x10^3(ANC) (test code = 2043758037) 7.18 10*3/uL 1.88-7.09 H IMM GRAN x10^3 (test code = 6224860873) 0.04 10*3/uL 0.00-0.06 LYMPH x10^3 (test code = 731-0) 1.86 10*3/uL 1.32-3.29 MONO x10^3 (test code = 742-7) 0.47 10*3/uL 0.33-0.92 EOS x10^3 (test code = 711-2) 0.20 10*3/uL 0.03-0.39 BASO x10^3 (test code = 704-7) 0.05 10*3/uL 0.01-0.07 Lab Interpretation (test code = 93364-7) Abnormal [facility]. METABOLIC PANEL (32175)2023-11-08 17:45:25* Test Item Value Reference Range Interpretation Comme nts NA (test code = 9798768452) 136 mmol/L 135-145 K (test code = 3828144084) 3.1 mmol/L 3.5-5.0 L CL (test code = 0347590825) 105 mmol/L 98-108 CO2 TOTAL (test code = 7911431825) 21 mmol/L 23-31 L AGAP (test code = 6342985179) 10 2-16 BUN (test code = 1110497599) 12 mg/dL 7-23 GLUCOSE (test code = 1899762214) 92 mg/dL 70-110 CREATININE (test code = 2160-0) 0.57 mg/dL 0.50-1.04 TOTAL BILI (test code = 5504440652) 0.6 mg/dL 0.1-1.1 CALCIUM (test code = 5600113002) 9.0 mg/dL 8.6-10.6 T PROTEIN (test code = 8167921910) 8.0 g/dL 6.3-8.2 ALBUMIN (test code = 3212741140) 4.3 g/dL 3.5-5.0 ALK PHOS (test code = 3307601655) 81 U/L 34-122 ALTv (test code = 1742-6) 17 U/L 5-35 AST(SGOT) (test code = 6789532906) 45 U/L 13-40 H eGFR (test code = 50266-3) 127.9 mL/min/1.73m2 CKD-EPI eGFR (2020). Assuming creatinine has been stable day-to-day for at least three months, the eGFR indicates Category G1 (>= 90 mL/min/1.73 m2) Lab Interpretation (test code = 41834-4) [facility]* Test Item Value Reference Range Interpretation Comme nts LIPASE (test code = 6314058349) 53 U/L 0-220 Lab Interpretation (test cod e = 69159-2) Normal [facility] WITH [id number] 16:15:57* Test Item Value Reference Range Interpretation [...] 33.1 g/dL 31.6-35.1 RDW-SD (test code = 89674-9) 50.1 fL 39.0-49.9 H RDW-CV (test code = 788-0) 13.8 % 12.0-15.5 PLT (test code = 777-3) 471 166-358 H MPV (test code = 44019-2) 9.2 fL 9.5-12.9 L NRBC/100 WBC (test code = 8471134541) 0.0 0.0-10.0 NRBC x10^3 (test code = 1219254197) See_Comment [Automated messa ge] The system which generated this result transmitted reference range: 10*3/?L. The reference range was not used to interpret this result as normal/abnormal. GRAN MAT (NEUT) % (test code = 770-8) 77.8 % IMM GRAN % (test code = 6107146419) 0.30 % LYMPH % (test code = 736-9) 16.7 % MONO % (test code = 5905-5) 4.7 % EOS % (test code = 713-8) 0.2 % BASO % (test code = 706-2) 0.3 % GRAN MAT x10^3(ANC) (test code = 4283091135) 9.31 10*3/uL 1.88-7.09 H IMM GRAN x10^3 (test code = 5005154426) 0.04 10*3/uL 0.00-0.06 LYMPH x10^3 (test code = 731-0) 1.99 10*3/uL 1.32-3.29 MONO x10^3 (test code = 742-7) 0.56 10*3/uL 0.33-0.92 EOS x10^3 (test code = 711-2) 0.03-0.39 L BASO x10^3 (test code = 704-7) 0.03 10*3/uL 0.01-0.07 Lab Interpretation (test code = 51738-7) [id number] 16:01:00* Test Item Value Reference Range Interpretation Comme nts POCT PREG (test code = 1605) Negative On board controls acceptable with C Line (test code = 3574) Yes POCT PREG LOT # (test code = 3575) [id number] POCT PREG TEST DATE ( test code = 3576) 11-28-24 Lab Interpretation (test cod e = 87428-2) [facility] [id number] 16:30:00* Test Item Value Reference Range Interpretation Comme nts POCT PREG (test code = 1605) Negative On board controls acceptable with C Line (test code = 3574) Yes POCT PREG LOT # (test code = 3575) 554851 POCT PREG TEST DATE ( test code = 3576) 03/28/2024 Lab Interpretation (test cod e = 74081-3) Normal [facility] [id number] 20:18:00* Test Item Value Reference Range Interpretation Comme nts POCT PREG (test code = 1605) Negative On board controls acceptable with C Line (test code = 3574) Yes POCT PREG LOT # (test code = 3575) POCT PREG TEST DATE ( test code = 3576) [facility] [id number] 20:18:00* Test Item Value Reference Range Interpretation Comme nts POCT PREG (test code = 1605) Negative On board controls acceptable with C Line (test code = 3574) Yes POCT PREG LOT # (test code = 3575) POCT PREG TEST DATE ( test code = 3576) [facility] OR [place] ONLY - [id number] 04:42:10* Test Item Value Reference Range Interpretation Comme nts RPR (Qualitative) (test code = 60834-4) Nonreactive Nonreactive Lab Interpretation (test cod e = 32366-2) [facility] Surface [id number] 17:49:35 * Test Item Value Reference Range Interpretation Comme nts HBsAg Semi-Quantitative (mesha t code = 5195-3) Negative Negative [facility] AG-AB WITH [id number] 12:19:16* Test Item Value Reference Range Interpretation Comme nts HIV Semi-quantitative (test code = 21948-2) Negative Negative RUMA (test code = RUMA) Non-reactive for HIV-1 antigen and HIV-1/HIV-2 antibodies. ?No laboratory evidence of HIV infection. ?Repeat in 2-4 weeks if acute HIV infection is suspected. [facility]. METABOLIC PANEL (08394)2021-11-26 11:29:08* Test Item Value Reference Range Interpretation Comme nts NA (test code = 5948056913) 137 mmol/L 135-145 K (test code = 5231016996) 3.6 mmol/L 3.5-5 CL (test code = 1711361672) 105 mmol/L 98-108 CO2 TOTAL (test code = 2538239144) 21 mmol/L 23-31 L AGAP (test code = 1197141019) 2-16 BUN (test code = 6869344354) 4 mg/dL 7-23 L GLUCOSE (test code = 3776905760) 93 mg/dL 70-110 CREATININE (test code = 5139349485) 0.49 mg/dL 0.5-1.04 L TOTAL BILI (test code = 2678202099) 0.2 mg/dL 0.1-1.1 CALCIUM (test code = 7750218799) 9.0 mg/dL 8.6-10.6 T PROTEIN (test code = 3492478446) 6.9 g/dL 6.3-8.2 ALBUMIN (test code = 6061078559) 3.7 g/dL 3.5-5 ALK PHOS (test code = 2630773926) 169 U/L 34-122 H ALTv (test code = 1742-6) 15 U/L 5-35 AST(SGOT) (test code = 1970914021) 23 U/L 13-40 eGFR (test code = 7262341465) mL/min/1.73m2 RUMA (test code = RUMA) Association [...] imaging tests). Lab Interpretation (test code = 20125-1) [facility]normal [facility] [id number] 11:28:48* Test Item Value Reference Range Interpretation Comme [facility] ACID (test code = 0645210613) 3.4 mg/dL 2.9-6 Lab Interpretation (test cod e = 41038-1) Normal [facility] [id number] 11:24:10* Test Item Value Reference Range Interpretation Comme nts LDH (test code = 1495125427) 216 U/L 120-246 Lab Interpretation (test cod e = 79515-6) Normal [facility] and Screen - ONCE [id number] 10:30:18 * Test Item Value Reference Range Interpretation Comme nts ABO & RH (test code = 20) O Positive Performed at [facility] Laboratory [facility] Blood [address] [place] [address] Free: [phone] No. [id number] IAT (test code = 1185) Negative Performed at [facility] Laboratory Services - [facility] Blood [address]Toll Free: [phone] No. [id number] [facility] with [id number] 09:46:38* Test Item Value Reference Range Interpretation Comme nts WBC (test code = 6690-2) See_Comment H [Automated 20/20 [employer] ge] The system which generated this result [...] 34.9 g/dL 31.6-35.1 RDW-SD (test code = 10588-1) 40.9 fL 39-49.9 RDW-CV (test code = 788-0) 12.2 % 12-15.5 PLT (test code = 777-3) See_Comment [Automated 20/20 [employer] ge] The system which generated this result transmitted reference range: 166 - 358 10*3/?L. The reference range was not used to interpret this result as normal/abnormal. MPV (test code = 20750-9) 9.9 fL 9.5-12.9 NRBC/100 WBC (test code = 9368092033) See_Comment [Automated Melinta ssage] The system which generated this result transmitted reference range: 0.0 - 10.0 /100 WBCs. The reference range was not used to interpret this result as normal/abnormal. NRBC x10^3 (test code = 6530371143) See_Comment [Automated 20/20 [employer] ge] The system which generated this result transmitted reference range: 10*3/?L. The reference range was not used to interpret this result as normal/abnormal. GRAN MAT (NEUT) % (test code = 770-8) 70.4 % IMM GRAN % (test code = 9411361539) 0.70 % LYMPH % (test code = 736-9) 20.1 % MONO % (test code = 5905-5) 6.0 % EOS % (test code = 713-8) 2.5 % BASO % (test code = 706-2) 0.3 % GRAN MAT x10^3(ANC) (test code = 4853324078) 8.92 10*3/uL 1.88-7.09 H IMM GRAN x10^3 (test code = 3821667573) 0.09 10*3/uL 0-0.06 H LYMPH x10^3 (test code = 731-0) 2.55 10*3/uL 1.32-3.29 MONO x10^3 (test code = 742-7) 0.76 10*3/uL 0.33-0.92 EOS x10^3 (test code = 711-2) 0.32 10*3/uL 0.03-0.39 BASO x10^3 (test code = 704-7) 0.04 10*3/uL 0.01-0.07 Lab Interpretation (test code = 35207-1) Abnormal [facility] URINALYSIS W SPECIFIC [id number] 14:56:00* Test Item Value Reference Range Interpretation [...] U APPEAR (test code = 3267) [facility] URINALYSIS W SPECIFIC [id number] 14:56:00* Test Item Value Reference Range Interpretation [...] U APPEAR (test code = 3267) [facility] URINALYSIS W SPECIFIC [id number] 14:58:00* Test Item Value Reference Range Interpretation [...] U APPEAR (test code = 3267) [facility] URINALYSIS W SPECIFIC [id number] 14:58:00* Test Item Value Reference Range Interpretation [...] U APPEAR (test code = 3267) [facility] URINALYSIS W SPECIFIC [id number] 14:58:00* Test Item Value Reference Range Interpretation [...] U APPEAR (test code = 3267) [facility] URINALYSIS W SPECIFIC [id number] 14:58:00* Test Item Value Reference Range Interpretation [...] U APPEAR (test code = 3267) [facility] URINALYSIS W SPECIFIC [id number] 14:58:00* Test Item Value Reference Range Interpretation [...] U APPEAR (test code = 3267) [facility] URINALYSIS W SPECIFIC [id number] 18:21:00* Test Item Value Reference Range Interpretation [...] APPEAR (test code = 3267) [facility] History and Physical Notes Date/Time Note Provider Source 2024-01-29 09:03:32 Patient seen and examined in the preop/DSU area. No changes in history and physical from our note below. -OR today for laparoscopic cholecystectomy -NPO past midnight -Surgical consent signed Kiko Belcher MD 01/29/2024 9:03 AM PGY4, General Surgery AIN ENGINEER Associated attestation - Eva Bryan MD - 01/29/2024 10:25 AM SUSTAIN ENGINEER Attending Attestation: I personally evaluated and [...] Bryan M.D. 01/29/2024 10:24 Source Note - Eav Bryan MD - 01/07/2024 11:15 AM SUSTAIN ENGINEER Images from the original note were not included. GENERAL SURGERY CLINIC NOTE Reason for Visit / Chief Complaint: Abdominal pain, gallstones History of Present Illness: Lanre Bales is a 28 year old female with PMHx as below who presents for evaluation of abdominal pain and gallstones. She was seen at [facility] ED in 11/08/2023 for vomiting. Work up [...] lives with mother and child, FOB involved. Yazidi preference: Ep[employer]opalian. Has one cat, educated about diego litter [...] min Stress: No Stress Concern Present (12/19/2022) [employer] [place] [employer] - Occupational Stress Questionnaire Feeling of Stress : Not at all Social Connections: Moderately Integrated (12/19/2022) Social Connection and Isolation Panel [NHANES] Frequency of Communication with Friends and Family: More than three times a week Frequency of Social Gatherings with Friends and Family: Twice a week Attends Yazidi Services: 1 to 4 times per year [...] consent obtained. Eva Bryan M.D. 01/07/2024 14:58 AIN ENGINEER [facility] Health Notes Date/Time Note Provider Source 2024-05-27 23:23:15 1. Primary insomnia Additional time was spent discussing sleep hygiene including: regular bedtime and wake-up times; enough sleep hours; going to bed only when sleepy; using bed for the sole purpose of sleeping; avoidance of: 1) caffeinated and alcoholic beverages, 2) strenuous cognitive activity, or 3) heavy meals in the evening. Driving safety was reviewed with patient. If the patient feels too sleepy to drive he/she knows not to drive. If he/she becomes sleepy while driving he/she will stick puller and nap. Started on ramelteon for sleep - ramelteon 8 mg tablet; Take 1 tablet by mouth at bedtime. Dispense: 90 tablet; Refill: 1 Generalized anxiety disorder Increased zoloft to 50 mg daily - SERTraline 50 mg tablet; Take 1 tablet by mouth in the morning. Dispense: 30 tablet; Refill: 1 - Stable. No indication for acute intervention. Has good social & family support. Patient denies SI/HI/AH/VH. - Anticipatory guidance and patient education provided. - Advised to maintain care and access to Mental Health/Counselor (Psychology/Psychiatry), follow up as scheduled. - Advised to call clinic or contact [facility] patient care access center, phone # ([phone]) provided, and to go to emergency room/hospital/urgent care if feeling overwhelmed with worsening Sx. For the weight loss , are you still doing the qysmia ? [facility] 2024-05-22 09:03:26 What medication is the patient referring to ? Med list reviewed , is it doxepin or sertraline, ? The sertraline can be increased to 50mg , 25mg is the starting dose Also doxepin can contribute to weight gain , don't recommend. Can we talk more about your meds. [facility] 2024-04-12 05:44:28 Pt given printed and verbal [...] with steady gait, in no apparent distress AIN ENGINEER Debbie Felix RN [facility] 2024-04-12 04:30:19 C/O cough, headache, nasal congestion, sore throat X 2 days. E Amin RN [facility] 2024-04-08 07:58:05 2.6 cm left ovarian cyst without significant free fluid - f/u with heel turner. [facility] 2024-04-07 08:56:55 Radiology report from [facility], placing in providers basket for review E Rudolph [facility] 2024-03-31 12:10:42 1. Class 3 severe obesity [...] 7.5mg qAM. Dispense: 30 capsule; Refill: 0 [facility] 2024-03-28 15:19:14 Images from the original [...] MD Gastroenterology: Antiulcer - Proton Pump Inhibitors Dzpeby5803/28/2024 12:22 PM Protocol Details Valid encounter within last 12 months To be filled at: [facility] [address] Last Refilled: 01/2024 Recent Visits Date Type Provider Dept 03/27/24 Appointment Jess Munson MD [facility] 02/27/24 Office Visit Jess Munson MD [facility] 01/03/24 Office Visit Jess Munson MD [facility] 11/19/23 Office Visit Jess Munson MD [facility] 08/06/23 Office Visit Jess Munson MD [facility] 01/24/23 Office Visit Jess Musnon MD [facility] 12/25/22 Office Visit Jess Munson MD [facility] Showing recent visits within past 540 days with a meds authorizing provider and meeting all other requirements Future Appointments Date Type Provider Dept 05/28/24 Appointment Jess Munson MD [facility] Showing future appointments within next 150 days with a meds authorizing provider and meeting all other requirements AIN ENGINEER Dhara Corral MA [facility] 2024-03-28 13:09:22 Images from the original note [...] by Jess Munson MD Provider Review Required Jsgxyx8003/28/2024 09:36 AM Protocol Details This refill cannot be delegated Valid encounter within last 12 months To be filled at: [facility] [address] [place] [address] Last Refilled: 02/27/24 Recent Visits Date Type Provider Dept 03/27/24 Appointment Jess Munson MD [facility] 02/27/24 Office Visit Jess Munson MD [facility] 01/03/24 Office Visit Jess Munson MD [facility] 11/19/23 Office Visit Jess Munson MD [facility] 08/06/23 Office Visit Jess Munson MD [facility] 01/24/23 Office Visit Jess Munson MD [facility] 12/25/22 Office Visit Jess Munson MD [facility] Showing recent visits within past 540 days with a meds authorizing provider and meeting all other requirements Future Appointments Date Type Provider Dept 05/28/24 Appointment Jess Munson MD [facility] Showing future appointments within next 150 days with a meds authorizing provider and meeting all other requirements AIN ENGINEER Dhara Corral MA [facility] 2024-03-26 10:41:39 PA has been completed via Cover My Meds. AIN ENGINEER Tiff Thomason RN [facility] 2024-03-26 08:53:46 Summary: Prior Authorization Request Images from the original note were not included. E Gray [facility] 2024-03-18 08:12:42 Pt is active on [employer], message has been sent. E Thomason RN [facility] 2024-03-18 08:03:48 Currently Qysmia which is not covered by patient insurance is the one approved superintendent container terminal . Every other regimen will be an off label use. Phentermine is approved for 3 months use only which patient has already tried. [facility] 2024-03-17 14:54:51 Call placed to pt, Pt states her Qysmia was not approved and would like refill on phentermine, Last Refilled: 01/28/2024 Recent Visits Date Type Provider Dept 02/27/24 Office Visit Jess Munson MD [facility] 01/03/24 Office Visit Jess Munson MD [facility] Medicine 11/19/23 Office Visit Jess Munson MD [facility] 08/06/23 Office Visit Jess Munson MD [facility] 01/24/23 Office Visit Jess Munson MD [facility] 12/25/22 Office Visit Jess Munson MD [facility] Showing recent visits within past 540 days with a meds authorizing provider and meeting all other requirements Future Appointments Date Type Provider Dept 05/28/24 Appointment Jess Munson MD [facility] Showing future appointments within next 150 days with a meds authorizing provider and meeting all other requirements AIN ENGINEER Tiff Thomason RN [facility] 2024-03-17 14:15:48 Lanre Bales is a 28 year old female and the pt is calling to request another call from the PCP about the following medication phentermine-topiramate 3.75-23 mg per capsule Callback#:[phone] Please contact and advise. AIN ENGINEER Helen Whitley [facility] 2024-03-16 02:32:09 Pt given printed and verbal [...] with steady gait, in no apparent distress. AIN ENGINEER [facility] 2024-03-16 02:16:26 Pt arrives ambulatory to ED c/o tooth pain that has been worsening over the last couple of days. E Trivedi RN [facility] 2024-03-10 09:40:47 Patient will call back later, she is going to call her insurance to check if Qysmia will be covered. Patient will call back later. E Corrales MA [facility] 2024-03-10 09:02:20 Images from the original note [...] by Jess Munson MD Provider Review Required Bcptfs4703/10/2024 09:01 AM Protocol Details This refill cannot be delegated Valid encounter within last 12 months To be filled at: [address] 02-26-2023 [facility] 05-28-[address] [facility] Sabi Corrales MA [facility] 2024-03-10 09:01:24 Images from the original note were not included. [facility] 2024-03-08 10:27:35 Was phentermine topiramate covered [facility] 2024-03-07 08:57:47 Noted, routing to provider for review. AIN ENGINEER Sabi Corrales MA [facility] 2024-03-07 08:02:29 Images from the original note were not included. E Castillo [facility] 2024-03-06 09:29:10 Referral has been placed with OV notes attached. E Thomason RN [facility] 2024-03-05 15:54:06 Images from the original note were not included. [facility] 14:57:18 1. Class 3 severe obesity [...] 5mg qWeek Dispense: 2 mL; Refill: 2 [facility] 2024-03-05 08:12:01 Can send the phentermine differently and topiramate differently [facility] 2024-03-04 14:44:11 Authorization completed, insurance will cover it. [employer] message sent to patient. Abbey Goel MA 03/04/2024 2:45 PM AIN ENGINEER Abbey Goel MA [facility] 2024-03-04 14:23:22 Patient is requesting a prior authorization for phentermine-topiramate (QSYMIA) 3.75-23 mg per capsule E Escobedo [facility] 2024-03-03 16:59:33 PA was denied for this medication. Pt was notified. E Thomason RN [facility] 2024-03-03 11:11:56 Lanre Bales is a 28 year old female Alla with [employer] called and states that the submitted claim is not matching prior authorization. She is requesting for clinic to get with insurance to correct. Please advise. E Mcclain [facility] 2024-02-29 08:26:23 Medication not covered by insurance, will notify the provider to determine if other weight loss medications were discussed. Abbey Goel MA 02/29/2024 8:29 AM AIN ENGINEER Abbey Goel MA [facility] 2024-02-28 16:38:02 Images from the original note were not included. E Malik [facility] 2024-02-28 13:24:10 Medicine changed to qysmia [facility] 2024-02-28 08:35:57 Images from the original note were not included. E Malik [facility] 2024-02-27 15:54:17 PA has been submitted via [employer] My Meds with OV note attached, [employer] message sent to pt. AIN ENGINEER Tiff Thomason RN [facility] 2024-02-27 15:14:43 Patient is requesting a prior authorization for phentermine-topiramate (QSYMIA) 3.75-23 mg per capsule E Escobedo [facility] 2024-02-22 13:46:42 Images from the original note were not included. Results received from [facility] scanned in folder and placed in provider basket for review. E Malik [facility] 2024-02-22 02:57:27 Pt given printed and verbal [...] encouraged to follow up with pcp & GAS USAGE METER CLERK. Advised to seek medical attention for new/prolonged/worsening of symptoms. No adverse reaction to meds given in ER noted upon discharge. PIV d'cd, dressing to site, catheter in tact. Awake, alert oriented, resp reg unlabored, skin w/d, pt leaving amb with steady gait, in no apparent distress. E Trivedi RN [facility] 2024-02-22 02:16:49 Ice chips given E Moody RN [facility] 2024-02-22 01:38:[address] Connected to blood pressure and pulse ox. Call light in reach. IV bolus infusing. [facility] 2024-02-22 00:45:05 Patient urinating, able to walk to bathroom independently E Duval RN [facility] 2024-02-22 00:29:[address] is waiting for urine to continue treatment. Pt stated she was on her period. Explained to pt that we hand to have a documented negative test to proceed with CT and her further cared is being delayed until we get urine. Pt verbalized understanding and said she would try in a few minutes. [facility] 2024-02-22 00:08:00 Patient states she does not need to urinate at this time and not wanting to try. [facility] 2024-02-21 23:49:50 Has had vomiting and diarrhea x 2 days. Has lap claire 3 weeks ago. C/O generalized abdominal pain. [facility] 2024-02-21 23:42:00 I personally examined the patient on 02/22/2024 and agree with Marisa's LOPEZ note with the following addition(s): CTAP-neg. Acute, known ovarian cyst . I actively participated in the decision-making process. Please see the Midlevel Provider's note for additional details. Curt Curry MD 02/22/[address] [facility] 2024-02-21 08:15:34 Radiology report from [facility], will print & place on providers basket [facility] Bernarda Rudolph [facility] 2024-02-15 08:10:47 Please schedule follow up appointment for next Sunday [facility] 2024-02-14 08:54:37 Images from the original note were not included. Attempted to contact patient several times using the numbers on file and continue getting the busy signal. [employer] message sent at this time with providers recommendations. [facility] 2024-02-14 08:44:25 Closing this telephone encounter as this has been addressed in another telephone encounter 02/11/24. [facility] 2024-02-13 08:57:47 I previously recommended an [...] 02/13/2024 8:59 AM Colon and Rectal Surgery [facility] 2024-02-11 14:23:37 Patient returned call stating she is having a lot of pain, denies any fever, swelling, drainage from surgical sites. Patient had cholecystectomy on 01/29/24. Patient states she went to [facility] ER last night and had imaging and labs which showed no issues. Patient states she was informed she only needed to take 1 day off of work after her surgery. 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 Please call in scripts to [facility] in [place]. Please advise. [facility] Rosalee Perez RN [facility] 2024-02-11 13:16:52 Patient has been calling since [...] as such. Attempted to contact patient at [phone] and via her emergency contact [phone]. Have called both numbers several times, only get a busy signal for both numbers. Responded to MyChart messages requesting patient contact the office and informed patient via MyChart message that MyChart messages are not answered immediately and all urgent needs should be called to office. PSS please have staff address phone call RACHAEL if patient calls back. Thank you. [facility] 2024-02-11 13:07:38 Patient has been calling [...] as such. Attempted to contact patient at [phone] and via her emergency contact [phone]. Have called both numbers several times, only get a busy signal for both numbers. Responded to [employer] messages requesting patient contact the office and informed patient via MyChart message that MyChart messages are not answered immediately and all urgent needs should be called to office. PSS please have staff address phone call RACHAEL if patient calls back. Thank you. E Perez RN [facility] 2024-02-11 12:40:42 Images from the original note [...] if pain is too much. Analgesics: NSAIDS Zpigzw2102/11/2024 12:28 PM Protocol Details Valid encounter within [...] (01/29/2024) by Eva Bryan MD Controlled Substance Ojbucr8102/11/2024 12:28 PM Protocol Details Valid encounter within last 3 months Pain agreement on file This refill cannot be delegated To be filled at: [facility] [address] [place] [address] Last Refilled: 01/29/24 Recent Visits Date Type Provider Dept 01/03/24 Office Visit Jess Munson MD [facility] 11/19/23 Office Visit Jess Munson MD [facility] 08/06/23 Office Visit Jess Munson MD [facility] 01/24/23 Office Visit Jess Munson MD [facility] 12/25/22 Office Visit Jess Munson MD [facility] Showing recent visits within past 540 days with a meds authorizing provider and meeting all other requirements Future Appointments Date Type Provider Dept 02/27/24 Appointment Jess Munson MD [facility] Showing future appointments within next 150 days with a meds authorizing provider and meeting all other requirements AIN ENGINEER Dhara Corral MA [facility] 2024-02-08 16:24:36 Attempted to contact patient using both numbers on file and continue getting the busy signal. [facility] 2024-02-08 14:53:13 Images from the original note were not included. Attempted to contact patient using both numbers on file and continue to get the busy signal. [facility] 2024-02-08 14:39:49 Given severity of pain, and if having any associated symptoms, such as fever, inability to eat, nausea, vomiting, she should either come to clinic this afternoon to see Villafuerte or return to the ED for bloodwork and imaging. Charley Posadas MD 02/08/2024 2:42 PM Colon and Rectal Surgery [facility] CRS-COLON & RECTAL SURGERY STAFF [facility] 2024-02-08 14:27:41 Images from the original note [...] symptoms continue to get worse. Please advise. [facility] 2024-02-08 14:24:06 Telephone encounter created 02/08/24 regarding patient's symptoms. [facility] 2024-02-08 13:26:14 Attempted to contact patient but continue to get busy signal. Will route to Dr Posadas for recommendations as Irvin is JEN AIN ENGINEER Debbie Frias RN [facility] 2024-02-08 11:46:35 Summary: Pain Medication Request s/p Lap Claire 01/28 I attempted to call pt to further access her symptoms and phone was busy. Unable to reach pt. I will try again over the phone and also respond to her [employer] message to get more information. E Wyman MA [facility] 2024-02-04 15:18:33 Patient notified. E Rolon RN [facility] 2024-02-04 14:39:44 She may resume phentermine 6 weeks following surgery [facility] 2024-01-31 08:09:22 Called number on file; no answer; message left to return call to clinic. E Rolon RN [facility] 2024-01-30 13:05:31 Pt had SX 01/28 and would like to know if she can resme taking Phentermine pilss. Please Assist E Magallanes [facility] 2024-01-28 09:50:30 Images from the original note [...] ago (12/27/2023) by Jess Munson MD Off-Protocol Ekovlh7001/25/2024 06:41 PM Protocol Details Medication not assigned to a protocol, forward to provider. Valid encounter within last 12 months zolpidem 5 mg tablet Sig: Take 1 tablet by mouth at bedtime as needed for Insomnia. Disp: 30 tablet Refills: 0 Start: 01/25/2024 Class: eRX PDMP Needs Review For: Primary insomnia Last ordered: 1 month ago (12/27/2023) by Jess Munson MD Provider Review Required Mjttyd7701/25/2024 06:41 PM Protocol Details This refill cannot [...] in mornings before meds kick in. Anti-nausea Zubnbe1001/25/2024 06:41 PM Protocol Details This refill cannot be delegated Manual Review: Women[facility] providers only allowed to refill requests. Valid encounter within last 12 months To be filled at: [facility] [address] [place] [address] 01-03-2024 NOV 02-27-[address] [facility] Sabi Corrales MA [facility] 2024-01-21 15:14:50 Images from the original note were not included. Your procedure is at [facility] on 01/29/24. The address is [address] [place] [address], [id number]. [facility] nursing staff will call you [...] symptoms at this time, no testing required. [facility] 2024-01-12 05:46:05 Awake, alert oriented X4, [...] discharge Pt taken to POV via wheelchair. [facility] Margot Amin RN [facility] 2024-01-12 04:56:14 Pt's boyfriend left phone # [phone] [facility] 2024-01-12 03:57:23 Patient arrived to ED c/o vomiting for two days. Hx of gallbladder issues. Sees Dr. Bryan. No medications taken PIT TANNER. [facility] 2024-01-11 12:44:39 1. Nausea and vomiting, unspecified vomiting type To Defer to GI for further questions - ondansetron 8 mg tablet; Take 1 tablet by mouth every 8 (eight) hours as needed for Nausea and Vomiting (N/V). Dispense: 24 tablet; Refill: 0 [facility] 2024-01-10 16:32:15 Forwarding to provider. [facility] 2024-01-02 08:00:08 Images from the original note were not included. Medical record received from [facility] scanned in folder and placed in provider basket for review. E Malik [facility] 2023-12-25 13:55:45 Images from the original note [...] ago (11/19/2023) by Jess Munson MD Off-Protocol Jehpfm3412/25/2023 01:50 PM Protocol Details Medication not assigned to a protocol, forward to provider. Valid encounter within last 12 months zolpidem 5 mg tablet Sig: Take 1 tablet by mouth at bedtime as needed for Insomnia. Disp: 30 tablet Refills: 0 Start: 12/25/2023 Class: eRX PDMP Needs Review For: Primary insomnia Last ordered: 1 month ago (11/19/2023) by Jess Munson MD Provider Review Required Pqmhmc8212/25/2023 01:50 PM Protocol Details This refill cannot be delegated Valid encounter within last 12 months To be filled at: [address] 11-19-2023 [facility] 02-27-2024 E Corrales MA [facility] 2023-12-25 10:29:31 Please review patients request for ondansetron 4 mg dissolvable tablet instead of the prescribed ondansetron 4 mg tablet. Please advise, thank you. E Duarte LVN [facility] 2023-12-18 11:14:17 Noted Abbey Goel MA 12/18/2023 11:14 AM Abbey Goel MA [facility] 2023-12-18 09:36:32 Pt opted for appt today Anaya Andrews [facility] 2023-12-18 09:30:12 Lanre Bales is a 28 year old female Calling in wanting to know if PCP can prescribe proMETHazine 25 mg tablet If not pt would like to be advised on what to do to manage symptoms before her endoscopy Please advise [facility] 2023-12-18 09:17:17 Pt is returning clinic call. Karina Mcclain [facility] 2023-12-17 10:33:58 Routing to provider for review as office has not sent in Rx before. Recent Visits Date Type Provider Dept 11/19/23 Office Visit Jess Munson MD [facility] 08/06/23 Office Visit Jess Munson MD [facility] 01/24/23 Office Visit Jess Munson MD [facility] 12/25/22 Office Visit Jess Munson MD [facility] Showing recent visits within past 540 days with a meds authorizing provider and meeting all other requirements Future Appointments Date Type Provider Dept 02/27/24 Appointment Jess Munson MD [facility] Showing future appointments within next 150 days with a meds authorizing provider and meeting all other requirements Tiff Thomason RN [facility] 2023-12-17 10:29:18 Pt states she is having a gastritis flare as of last night. Pt said she has vomited a few times. She would like a prescription sent in for nausea. She said she does not want to go to the ER because she has her son. Please Advise. [facility] [address] [place] [address] Alberta Ashraf [facility] 2023-12-11 14:03:58 Patient returned my call. Patient [...] Pre op call complete. Jill Brown RN [facility] 2023-12-11 10:09:05 Left a message to remind [...] medications. Prep and medication instructions sent via [employer] & email: [email or web address] [facility] 2023-12-07 09:25:56 Images from the original note [...] Ordoñez NP Last refill: 09/05/2023 Rx #: [id number] Psychiatry: Antidepressants Zamfya7912/07/2023 12:36 AM Protocol Details Manual Review: Verify no changes in dose in the last 3 months Valid encounter within last 12 months To be filled at: [facility]/pharmacy #[id number] - [address] 11-19-2023 NOV 02-27-2024 Sabi Corrales MA [facility] 2023-11-19 10:30:00 Breath test [facility] 2023-11-19 10:30:00 Addended by: AYESHA LIANG on: 11/19/2023 02:54 PM Modules accepted: Orders Ayesha Liang [facility] 2023-11-19 08:13:22 Pt has scheduled appointment for 11/18. Rossana Malik [facility] 2023-11-18 18:46:30 1. Primary insomnia Update patient [...] with no significant benefit, will also discontinue. [facility] 2023-11-18 13:08:04 Patient given printed and verbal [...] in no apparent distress. Tosha Duval RN [facility] 2023-11-18 07:19:14 [facility] ED [...] 1049) Results: Labs Reviewed COMP. METABOLIC PANEL (80414) - Abnormal; Notable for the following components: [...] to have appropriate medical decision making capability. 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 Disposition: Discharged Home Social Determinants of Health: None ED Disposition ED Disposition Disch - Home Condition Stable Comment -- [facility] 2023-11-18 07:14:03 Patient report given to Crispin GALVAN [facility] 2023-11-18 05:26:10 Pt presents to ED with c/o vomiting 2 days. Pt states she also has pain in the top of her stomach. Pt rates pain 9/10 in abdomen No meds PIT TANNER LMP: couple weeks ago. Lisha Spear RN [facility] 2023-11-18 05:21:00 [facility] Emergency Department Note Patient Name: Lanre Bales Date of : 1995 28 year old female Treatment Room: [place] [address] Primary Care Physician: Jess Munson Patient Escorted by: Family [5] Mode of Arrival: Personal means [1] EMS Treatment Prior to ED Arrival: PIT TANNER treatment: None Travel and Exposure Screening: Symptoms [...] History provided by: Significant other and patient pediatric genetic counselor used: No Abdominal Pain Pain location: Epigastric [...] negative Physical Exam: ED Triage Vitals Weight 11/18/23 0527 122.5 kg (270 lb) Actual or estimated -- Height 11/18/2327 1.651 m (5' 5") BP 11/18/23527 (!) [...] Lab Results: Lab Results COMP. METABOLIC PANEL (28499) - Abnormal Result Value Ref Range NA [...] Screening Begins CARO BAUER MD -- 11/18/23 0558 First Provider Evaluation CARO BAUER MD -- [...] signed by: Caro Bauer MD 11/18/23 0737 [facility] 2023-11-16 14:03:54 Images from the original note were not included. Requested Renewals zolpidem 5 mg tablet Sig: Take 1 tablet by mouth at bedtime as needed for Insomnia. Disp: 30 tablet Refills: 0 Start: 11/16/2023 Class: eRX For: Primary insomnia Last ordered: 4 weeks ago (10/19/2023) by Jess Munson MD Provider Review Required Zcgups3011/16/2023 01:53 PM Protocol Details This refill cannot be delegated Valid encounter within last 12 months To be filled at: [facility]/pharmacy #[id number] 08-06-2023 NOV N/A Sabi Corrales MA [facility] 2023-11-16 14:03:07 Images from the original note [...] ago (10/16/2023) by Jess Munson MD Off-Protocol Scajjf7511/16/2023 01:48 PM Protocol Details Medication not assigned to a protocol, forward to provider. Valid encounter within last 12 months To be filled at: [facility] [address] [place] [address] 08-06-2023 NOV N/A Sabi Corrales MA [facility] 2023-11-16 13:49:19 Patient requesting a refill of:zolpidem Medication: zolpidem Dose: 5 mg Route: refill Quantity: 30 Pharmacy: [facility] [address] [place] [address] Last appt.: 08/05 Next appt.: na Would like to speak with clinic about getting this done today T [facility] 2023-11-16 13:46:24 Lanre Bales is a 28 year old female is calling to get an update on refill request. Pt wants this sent today Petty Valdivia [facility] 2023-11-15 11:34:30 Images from the original note [...] ago (10/16/2023) by Jess Munson MD Off-Protocol Czugsq6611/15/2023 11:02 AM Protocol Details Medication not assigned to a protocol, forward to provider. Valid encounter within last 12 months To be filled at: [facility] [address] Last Refilled: 10/16/23 Recent Visits Date Type Provider Dept 08/06/23 Office Visit Jess Munson MD [facility] 01/24/23 Office Visit Jess Munson MD [facility] 12/25/22 Office Visit Jess Munson MD [facility] Showing recent visits within past 540 days with a meds authorizing provider and meeting all other requirements Future Appointments No visits were found meeting these conditions. Showing future appointments within next 150 days with a meds authorizing provider and meeting all other requirements T Dhara Corral MA [facility] 2023-11-08 15:30:00 DC instructions and prescription for Zofran ODT reviewed with patient. She will fill prescription and take as directed. She will follow up with her PCP in 3-5 days as instructed. She will return to the ED if her symptoms persist or worsen. She was Dc'd ambulatory-alert and in no distress [facility] 2023-11-08 13:02:16 Report received and care assumed. [facility] 2023-11-08 12:50:54 Nurse Report Report given to COLE Miranda. Chief complaint, assessment findings, infusion verify and orders reviewed. Plan of care discussed with both nurses. Judy Marroquin RN Judy Marroquin RN [facility] 2023-11-08 10:15:50 Vomiting x3 days. Lucille Lester RN [facility] 2023-10-18 13:34:30 Images from the original note were not included. Notes: Patient requesting refill, please review. Abbey Goel MA 10/18/2023 1:35 PM Last Refilled: 09/13/23 Recent Visits Date Type Provider Dept 08/06/23 Office Visit Jess Munson MD [facility] 01/24/23 Office Visit Jess Munson MD [facility] 12/25/22 Office Visit Jess Munson MD [facility] Showing recent visits within past [...] by Jess Munson MD Provider Review Required Zisyom9110/18/2023 12:27 PM Protocol Details This refill cannot be delegated Valid encounter within last 12 months To be filled at: [facility] [address] [place] [address] Abbey Goel MA [facility] 2023-10-18 12:25:18 Lanre Bales is a 28 year old female and pt is calling back to check on her refill request. Would like to know when it will be refilled please advise. zolpidem 5 mg tablet [facility] [address] [place] [address] [facility] 2023-10-16 13:12:14 Images from the original note were not included. Requested Renewals zolpidem 5 mg tablet Sig: Take 1 tablet by mouth at bedtime as needed for Insomnia. Disp: 30 tablet Refills: 0 Start: 10/16/2023 Class: eRX For: Primary insomnia Last ordered: 1 month ago (09/13/2023) by Jess Munson MD Provider Review Required Cszbao4410/16/2023 12:10 PM Protocol Details This refill cannot be delegated Valid encounter within last 12 months To be filled at: [address] 08-06-2023 NOV N/A T Sabi Corrales MA [facility] 2023-10-15 13:12:38 Images from the original note [...] ago (09/13/2023) by Jess Munson MD Off-Protocol Ujrvze2010/15/2023 01:05 PM Protocol Details Medication not assigned [...] ago (10/03/2023) by Jess Munson MD Off-Protocol Fyidlz2910/15/2023 01:05 PM Protocol Details Medication not assigned to a protocol, forward to provider. Valid encounter within last 12 months To be filled at: [facility] [address] [place] [address] 08-06-2023 NOV N/A Sabi Corrales MA [facility] 2023-10-02 08:26:45 Images from the original note were not included. Last OV:01/24/23 with Jess Munson MD Last Refill:12/26/22 prescribed by Jess Munson MD Last Labs Pertaining to Med:08/06/2023 Future Appt: Future Appointments Provider Department Dept Phone 2023 9:40 AM Jess Munson MD [facility] [place] [phone] Requested Renewals ergocalciferol, vitamin d2, (VITAMIN D2) 1,250 mcg (50,000 unit) capsule Sig: Take 1 capsule by mouth weekly. Disp: 12 capsule Refills: 0 Start: 10/01/2023 Class: eRX For: Vitamin D deficiency Last ordered: 9 months ago (12/26/2022) by Jess Munson MD Off-Protocol Fxsjxo8410/01/2023 08:53 PM Protocol Details Medication not assigned to a protocol, forward to provider. Valid encounter within last 12 months To be filled at: [facility]/pharmacy #[id number] [place], [place] - [address] [place] [address] Abbey Goel MA [facility] 2023-09-13 08:20:32 Images from the original note [...] ago (08/06/2023) by Jess Munson MD Off-Protocol Jvmicr8809/12/2023 06:49 PM Protocol Details Medication not assigned to a protocol, forward to provider. Valid encounter within last 12 months zolpidem 5 mg tablet Sig: Take 1 tablet by mouth at bedtime as needed for Insomnia. Disp: 30 tablet Refills: 0 Start: 09/12/2023 Class: eRX For: Primary insomnia Last ordered: 1 month ago (08/06/2023) by Jess Munson MD Provider Review Required Xpiuar9909/12/2023 06:49 PM Protocol Details This refill cannot be delegated Valid encounter within last 12 months To be filled at: [facility] [address] [place] [address] 08-06-2023 NOV N/A Sabi Corrales MA [facility] 2023-08-06 14:30:00 Images from the original note [...] DK BLUE (S) ACD Blood Culture NIPT/NTD [facility] 2023-08-01 12:29:00 Attempted to reach patient to schedule with CATALOGUE AND SPECIAL PRODUCTS MANAGER Piper radford. Elin Trivedi [facility] 2023-07-31 18:24:47 You can schedule an appointment with me in person and we can review other options. Dr. Dias is out of office till next week. [facility] 2023-07-31 16:57:43 Images from the original note [...] lifestyle changes to get best results Off-Protocol Lhcjnh0607/31/2023 02:47 PM Protocol Details Medication not assigned to a protocol, forward to provider. Valid encounter within last 12 months To be filled at: [facility] [address] [place] [address] Last Refilled: 05/29/2023 Recent Visits Date Type Provider Dept 01/24/23 Office Visit Jess Munson MD [facility] 12/25/22 Office Visit Jess Munson MD [facility] Showing recent visits within past 540 days with a meds authorizing provider and meeting all other requirements Future Appointments Date Type Provider Dept 08/13/23 Appointment Jess Munson MD [facility] Showing future appointments within next 150 days with a meds authorizing provider and meeting all other requirements Dhara Corral MA [facility] 2023-07-25 08:53:56 Images from the original note were not included. Requested Renewals traZODone 100 mg tablet Sig: Take 1 tablet by mouth at bedtime. Disp: 90 tablet Refills: 0 Start: 07/25/2023 Class: eRX Non-formulary For: Primary insomnia Last ordered: 3 months ago (04/23/2023) by Jess Munson MD Psychiatry: Antidepressants Pxqpsn7107/25/2023 08:38 AM Protocol Details Manual Review: Verify no changes in dose in the last 3 months Valid encounter within last 12 months To be filled at: [facility]/pharmacy #[id number] 01-24-2023 NOV N/A Sabi Corrales MA [facility] 2023-07-25 08:38:07 Images from the original note were not included. [facility] 2023-06-21 12:29:19 Patient dc home. Follow up with pcp. Verbalized understanding. Prosper Segovia RN [facility] 2023-06-21 11:23:37 Pt arrived via private car with c/o dysuria x3 days eo Rolon RN [facility] [facility] 2023-06-21 11:14:00 [facility] Emergency [...] signed by: Bonita Trivedi DO 06/21/23 1216 [facility] 2023-06-12 14:39:19 Call placed to pt to discuss MyChart message. Tiff Thomason RN [facility] 2023-05-29 14:42:38 Images from the original note [...] ago (04/12/2023) by Jess Munson MD Off-Protocol [id number]/29/2023 02:20 PM Protocol Details Medication not assigned to a protocol, forward to provider. Valid encounter within last 12 months To be filled at: [facility] [address] [place] [address] Last Refilled: 04/12/23 Recent Visits Date Type Provider Dept 01/24/23 Office Visit Jess Munson MD [facility] 12/25/22 Office Visit Jess Munson MD [facility] Showing recent visits within past 540 days with a meds authorizing provider and meeting all other requirements Future Appointments Date Type Provider Dept 06/06/23 Appointment Jess Munson MD [facility] Showing future appointments within next 150 days with a meds authorizing provider and meeting all other requirements Dhara Corral MA [facility] 2023-04-23 10:14:44 Images from the original note were not included. Routed to provider for review. Unable to refill per ambulatory refill guidelines. Notes: traZODone 100 mg tablet Sig: Take 1 tablet by mouth at bedtime. Disp: 90 tablet Refills: 0 Start: 04/23/2023 Class: eRX Non-formulary For: Primary insomnia Last ordered: 2 months ago (01/24/2023) by Jess Munson MD Psychiatry: Antidepressants [id number]/23/2023 09:19 AM Protocol Details Manual Review: Verify no changes in dose in the last 3 months Valid encounter within last 12 months To be filled at: [facility]/pharmacy #[id number] [place], [place] - [address] [place] [address] AT [facility] Last Refilled: 01/24/2023 Recent Visits Date Type Provider Dept 01/24/23 Office Visit Jess Munson MD [facility] 12/25/22 Office Visit Jess Munson MD [facility] Showing recent visits within past 540 days with a meds authorizing provider and meeting all other requirements Future Appointments Date Type Provider Dept 04/25/23 Appointment Jess Munson MD [facility] Showing future appointments within next 150 days with a meds authorizing provider and meeting all other requirements E Corral MA [facility] 2023-04-13 17:36:40 Refill request approved after communication with patient via [employer]. E Jimenez RN [facility] 2023-04-11 15:07:24 Images from the original note [...] ago (03/02/2023) by Jess Munson MD Off-Protocol [id number]/11/2023 02:55 PM Protocol Details Medication not assigned to a protocol, forward to provider. Valid encounter within last 12 months To be filled at: [facility] [address] [place] [address] 01-24-2023 [facility] 04-25-2023 AIN ENGINEER Sabi Corrales MA [facility] 2023-04-02 12:51:41 Images from the original note were not included. Last OV: 01/24/2023 with Jess Munson Last Refill: 02/20/2023 prescribed by Jess Munson Last Labs Pertaining to Med: N/A Future Appt: Future Appointments Provider Department Dept Phone 04/25/2023 3:00 PM Jess Munson MD [facility] [place] [phone] Routed to provider for review. Unable to refill per ambulatory refill guidelines. zolpidem 5 mg tablet Sig: Take 1 tablet by mouth at bedtime as needed for Insomnia. Disp: 30 tablet Refills: 0 Start: 04/01/2023 Class: eRX For: Primary insomnia Last ordered: 1 month ago (02/20/2023) by Jess Munson MD Provider Review Required [id number]/01/2023 01:01 PM Protocol Details This refill cannot be delegated Valid encounter within last 12 months AIN ENGINEER Melissa Jimenez RN [facility] 2023-03-02 13:44:04 Images from the original note [...] ago (01/26/2023) by Jess Munson MD Off-Protocol [id number]/02/2023 01:27 PM Protocol Details Medication not assigned to a protocol, forward to provider. Valid encounter within last 12 months To be filled at: [facility] [address] [place] [address] 01-24-2023 NOV 04-25-2023 AIN ENGINEER Sabi Corrales MA [facility] 2023-02-19 20:36:52 Images from the original note were not included. Last OV: 01/24/2023 with Jess uMnson Last Refill: 01/16/2023 prescribed by Jess Munson Last Labs Pertaining to Med: N/A Future Appt: Future Appointments Provider Department Dept Phone 04/25/2023 3:00 PM Jess Munson MD [facility] [place] [phone] Routed to provider for review. Unable to refill per ambulatory refill guidelines. zolpidem 5 mg tablet Sig: Take 1 tablet by mouth at bedtime as needed for Insomnia. Disp: 30 tablet Refills: 0 Start: 02/19/2023 Class: eRX For: Primary insomnia Last ordered: 1 month ago (01/16/2023) by Jess Munson MD Provider Review Required [id number]/19/2023 03:32 PM Protocol Details This refill cannot be delegated Valid encounter within last 12 months AIN ENGINEER Melissa Jimenez RN [facility]
[2024-06-15] MEDS ORDERED: NA CHLORIDE 0.9% 1,000 ML ONE ×2 (11:17→13:42)
[2024-06-15] MEDS ORDERED: ONDANSETRON 4 MG/2 ML VIAL ONE (11:17)
[2024-06-15] MEDS ORDERED: FAMOTIDINE 20 MG/2 ML VIAL IV ONE (11:17)
[2024-06-15] MEDS ORDERED: FENTANYL CITR 100 MCG/2 ML ONE (11:31)
[2024-06-15 11:49] LABS: Absolute Lymphocytes (CBC) 0.7 K/uL (0.7-4.9); Absolute Monocytes 0.2 K/uL (0.1-1.3); Absolute Neutrophil 9.8 K/uL (1.8-8.0); Basophils % 0.2 % (0-1.3); Hematocrit 39.3 % (36.0-45.0); Hemoglobin 13.7 g/dL (12.0-15.0); Lymphocytes % 6.7 % (15.3-44.8); MCH 35.3 pg (27.0-35.0); MCHC 34.9 g/dL (32.0-36.0); MPV 7.1 fL (7.6-11.3); Monocytes % 2.3 % (3.3-12.3); Neutrophils % 90.8 % (41.7-73.7); Nucleated Red Blood Cells % 0.1 % (0-0); Platelets 364 thou/uL (152-406); RBC Red Blood Cell Count 3.89 M/uL (3.86-4.86); Red Cell Distribution Width 13.4 % (12.1-15.2)
[2024-06-15 12:08] LABS: Albumin 3.8 g/dL (3.4-5.0); Albumin/Globulin Ratio 0.9 (1.1-1.8); Anion Gap 11.5 mEq/L (5.0-15.0); Bilirubin Total 0.6 mg/dL (0.2-1.0); Globulin 4.1 g/dL (2.3-3.5); Potassium 3.5 mEq/L (3.5-5.1); Protein, Total 7.9 g/dL (6.4-8.2)
[2024-06-15] MEDS ORDERED: LIDOCAINE VISCOUS 2% 10ML ORAL SOLN ONE (12:30)
[2024-06-15] MEDS ORDERED: PANTOPRAZOLE 40 MG INJ ONE (12:30)
[2024-06-15] MEDS ORDERED: MAGNES/ALUMIN/SIMET 30ML UCUP ONE (12:30)
[2024-06-15] MEDS ORDERED: PROMETHAZINE INJ 25 MG/ML AMP ONE (12:39)
[2024-06-15 13:16] LABS: Specific Gravity > 1.030 (1.005-1.030); Sqamous Epithelial <5 /HPF (None Seen); Urine Bacteria None Seen /HPF (<20); Urine Bilirubin NEGATIVE (Negative); Urine Blood Negative (Negative); Urine Clarity Extremely Turbid (Clear); Urine Color Yellow (Yellow); Urine Culture Reflex Order NOT NEEDED; Urine Glucose NEGATIVE (Negative); Urine Ketones 2+ (Negative); Urine Microscopic Reflex YN ORDER UMIC; Urine Mucus 4+ /HPF (None Seen); Urine Nitrite NEGATIVE (Negative); Urine Protein 1+ (Negative); Urine RBC 21-50 /HPF (None Seen); Urine Urobilinogen Normal (Normal); Urine WBC <5 /HPF (<5)
[2024-06-15 13:21] LABS: Specific Gravity > 1.030 (1.005-1.030)
--- NOTE | 2024-06-15 13:51 | RAD REPORT ---
EXAMINATION: CT ABDOMEN AND PELVIS WITH CONTRAST CLINICAL INDICATION: ABD PAIN TECHNIQUE: CT abdomen and pelvis was performed, after the administration of IV contrast, as per [facility] protocol. Axial, sagittal and coronal reconstructions were obtained. One or more of the following dose reduction techniques were used: Automated exposure control, adjustment of the mA and k V according to patient size, and iterative reconstruction. Unless otherwise specified, incidental findings do not require dedicated imaging follow-up. COMPARISON: 04/02/2024, 02/11/2024 FINDINGS: LOWER CHEST: The visualized lung bases are clear. LIVER: Mild fatty liver is present. No focal lesion or biliary dilatation is seen. Cholecystectomy clips. SPLEEN: Normal size. No focal lesion. PANCREAS: No mass, ductal dilation, or cuate-pancreatic fluid. ADRENALS: Normal; no mass. KIDNEYS: Normal size and contour. No hydronephrosis. GASTROINTESTINAL TRACT: No evidence of free air, significant intra-abdominal free fluid, bowel obstru ction or abscess. There is mild diverticulosis coli of the sigmoid colon without diverticulitis. APPENDIX: Normal appendix. LYMPH NODES: No lymphadenopathy. MUSCULOSKELETAL: No acute or suspicious osseous abnormality. IMPRESSION: No acute or concerning abnormalities seen in the abdomen or pelvis.
--- NOTE | 2024-06-15 14:04 | ER ---
Nurse's Notes [facility] Name: Robin Bernard Age: 28 yrs Sex: Female : 1995 Arrival Date: 06/15/2024 Time: 10:54 Bed 13 Private MD: Diagnosis: Vomiting;Epigastric abdominal tenderness Presentation: 06/15 11:05 Chief complaint: Patient states: throwing up for two days and abd pain, not sleeping, iw reports upper mid abd pain. Coronavirus screen: At this time, the client does not indicate any symptoms associated with coronavirus-19. Ebola Screen: No symptoms or risks identified at this time. Initial Sepsis Screen: Does the patient meet any 2 criteria? No. Patient's initial sepsis screen is negative. Does the patient have a suspected source of infection? No. Patient's initial sepsis screen is negative. Risk Assessment: Do you want to hurt yourself or someone else? Patient reports no desire to harm self or others. Onset of symptoms was June 13, 2024. 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 - Infectious Disease History:: Denies. - Social history:: Smoking status: Patient denies any tobacco usage or history of. - Family history:: not pertinent. Screenin:10 [facility] ED Fall Risk Assessment (Adult) History of falling in the last 3 months, cm10 including since admission No falls in past 3 months (0 pts) Confusion or Disorientation No (0 pts) Intoxicated or Sedated No (0 pts) Impaired Gait No (0 pts) Mobility Assist Device Used No (0 pt) Altered Elimination No (0 pt) Score/Fall Risk Level 0 - 2 = Low Risk Oriented to surroundings, Maintained a safe environment, Hourly rounding (assess needs \T\ fall precautionary measures) done. Abuse screen: Denies threats or abuse. Denies injuries from another. Nutritional screening: No deficits noted. Tuberculosis screening: No symptoms or risk factors identified. Assessment: 12:08 General: Appears in no apparent distress. uncomfortable, Behavior is calm, cooperative. cm10 Pain: Complains of pain in abdomen Pain currently is 10 out of 10 on a pain scale. Pain began 1 day ago. Neuro: No deficits noted. Level of Consciousness is awake, alert, obeys commands, Oriented to person, place, time, situation, Appropriate for age. Respiratory: No deficits noted. Airway is patent Respiratory effort is even, unlabored, Respiratory pattern is regular, symmetrical. GI: Abdomen is obese, Reports epigastric pain, nausea, vomiting. 12:48 Reassessment: Patient appears in no apparent distress at this time. Patient and/or cm10 family updated on plan of care and expected duration. Pain level reassessed. Patient is alert, oriented x 3, equal unlabored respirations, skin warm/dry/pink. Patient states symptoms have not improved. 13:26 Reassessment: Patient states symptoms have not improved. cm10 Vital Signs: 11:05 BP 146 / 97; Pulse 99; Resp 19; Temp 98.7; Pulse Ox 100% on R/A; Weight 108.86 kg; iw Height 5 ft. 5 in. ; Pain 7/10; 12:00 BP 135 / 96; Pulse 84; Resp 15; Pulse Ox 98% on R/A; cm10 14:40 BP 165 / 103; Pulse 89; Resp 18; Pulse Ox 100% ; cm10 11:05 Body Mass Index 39.94 (108.86 kg, 165.1 cm) iw 11:05 Pain Scale: Adult iw ED Course: 10:56 Patient arrived in ED. cj3 11:06 Triage completed. iw 11:06 Arm band placed on. iw 11:08 Jean Carlos Dias MD is Attending Physician. [facility] 11:11 Yusra Corral, COLE is Primary Nurse. cm10 11:35 Missed attempt(s): 20 gauge in right antecubital area. Bleeding controlled, band aid cm10 applied, catheter tip intact. 11:43 Initial lab(s) drawn, by ED staff, sent to lab. Inserted saline lock: 22 gauge in right cm10 antecubital area, using aseptic technique. Blood collected. Flushed with 10 mL NS. 12:11 Patient has correct armband on for positive identification. Placed in gown. Bed in low cm10 position. Call light in reach. Side rails up X2. Pulse ox on. NIBP on. 12:32 Radiology exam delayed due to test not completed at this time. sm9 13:36 CT Abd/Pelvis - IV Contrast Only In Process Unspecified. EDMS 14:03 Siobhan Kim MD is Referral Physician. [facility] 14:54 Provided Education on: follow-up. cm10 14:54 No provider procedures requiring assistance completed. IV discontinued, intact, cm10 bleeding controlled, No redness/swelling at site. Pressure dressing applied. Administered Medications: 11:55 Drug: Famotidine IVP 20 mg IVP once; dilute with 10 mL 0.9% NaCl; give over 2 minutes cm10 Route: IVP; Site: right antecubital; 12:35 Follow up: Response: No adverse reaction cm10 11:55 Drug: fentaNYL (PF) IVP 50 mcg IVP once Route: IVP; Site: right antecubital; cm10 12:35 Follow up: Response: No adverse reaction cm10 11:56 Drug: Ondansetron IVP 4 mg IVP once; over 2 minutes Route: IVP; Site: right antecubital;cm10 12:35 Follow up: Response: No adverse reaction cm10 11:56 Drug: NS 0.9% IV 1000 ml IV at 1 bolus Per protocol; to be given as a bolus over 60 cm10 minutes Route: IV; Rate: 1 bolus; Site: right antecubital; 14:41 Follow up: Response: No adverse reaction; IV Status: Completed infusion; IV Intake: cm10 1000ml 12:35 Drug: GI Cocktail without - (Maalox PO 30 ml, Lidocaine Mucous Membrane 2 % 15 cm10 ml) PO once Route: PO; 14:41 Follow up: Response: No adverse reaction cm10 12:35 Drug: Pantoprazole IVP 40 mg IVP once Route: IVP; Site: right antecubital; cm10 14:41 Follow up: Response: No adverse reaction cm10 12:48 Drug: Promethazine IM 25 mg IM once Route: IM; Site: right vastus lateralis; cm10 14:41 Follow up: Response: No adverse reaction cm10 13:51 Drug: NS 0.9% IV 1000 ml IV at 1000 ml once; to be given as a bolus over 60 minutes cm10 Route: IV; Rate: 1000 ml; Site: right antecubital; 14:41 Follow up: Response: No adverse reaction; IV Status: Completed infusion; IV Intake: cm10 1000ml Medication: 12:09 VIS not applicable for this client. cm10 Intake: 14:41 IV: 1000ml; Total: 1000ml. cm10 14:41 IV: 1000ml; Total: 2000ml. cm10 Outcome: 14:03 Discharge ordered by . ashok 14:54 Discharged to home ambulatory, cm10 14:54 Condition: good 14:54 Discharge instructions given to patient, Instructed on discharge instructions, follow up and referral plans. medication usage, Demonstrated understanding of instructions, follow-up care, medications, Prescriptions given X 4, 14:55 Patient left the ED. cm10 Signatures: Dispatcher [employer] EDMS Jean Carlos Dias MD MD cha Williams, Irene, RN Yusra Dai RN RN Meredith Shaw 9 Vickie Russell [email or web address] Corrections: (The following items were deleted from the chart) 11:06 11:05 Pulse 99bpm; Resp 19bpm; Pulse Ox 100% RA; Temp 98.7F; 108.86 kg; Height 5 ft. 5 iw in.; BMI: 39.9; Pain 7/10, Adult; iw
--- NOTE | 2024-06-15 14:04 | EDPHYS ---
Physician Documentation [facility] Name: Robin Bernard Age: 28 yrs Sex: Female : 1995 Arrival Date: 06/15/2024 Time: 10:54 Bed 13 Private MD: ED Physician Jean Carlos Dias HPI: 06/15 12:13 This 28 yrs old Black Female presents to ER via Ambulatory with complaints of ashok Nausea/Vomiting, Abdominal Pain. 12:13 The patient presents to the emergency department with abdominal pain, of the epigastric ashok area, right upper quadrant and left upper quadrant. Onset: The symptoms/episode began/occurred 2 day(s) ago. Possible causes: unknown, flare up of bowel problem, gastritis. The symptoms are aggravated by pressure, food . Associated signs and symptoms: Pertinent positives: anorexia. Severity of symptoms: At their worst the symptoms were mild moderate in the emergency department the symptoms have resolved. The patient has experienced similar episodes in the past, multiple times. 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 - Infectious Disease History:: Denies. - Social history:: Smoking status: Patient denies any tobacco usage or history of. - Family history:: not pertinent. ROS: 12:13 Constitutional: Negative for fever, chills, and weight loss, Eyes: Negative for injury, ashok pain, redness, and discharge, ENT: Negative for injury, pain, and discharge, Neck: Negative for injury, pain, and swelling, Cardiovascular: Negative for chest pain, palpitations, and edema, Respiratory: Negative for shortness of breath, cough, wheezing, and pleuritic chest pain, Back: Negative for injury and pain, : Negative for injury, bleeding, discharge, and swelling, MS/Extremity: Negative for injury and deformity, Skin: Negative for injury, rash, and discoloration, Neuro: Negative for headache, weakness, numbness, tingling, and seizure, Psych: Negative for depression, anxiety, suicide ideation, homicidal ideation, and hallucinations, Allergy/Immunology: Negative for hives, rash, and allergies, Endocrine: Negative for neck swelling, polydipsia, polyuria, polyphagia, and marked weight changes, 12:13 Abdomen/GI: Positive for abdominal pain, of the right upper quadrant and left upper quadrant, Exam: 12:13 Constitutional: This is a well developed, well nourished patient who is awake, alert, ashok and in no acute distress. Head/Face: Normocephalic, atraumatic. Eyes: Pupils equal round and reactive to light, extra-ocular motions intact. Lids and lashes normal. Conjunctiva and sclera are non-icteric and not injected. Cornea within normal limits. Periorbital areas with no swelling, redness, or edema. ENT: Nares patent. No nasal discharge, no septal abnormalities noted. Tympanic membranes are normal and external auditory canals are clear. Oropharynx with no redness, swelling, or masses, exudates, or evidence of obstruction, uvula midline. Mucous membranes moist. Neck: Trachea midline, no thyromegaly or masses palpated, and no cervical lymphadenopathy. Supple, full range of motion without nuchal rigidity, or vertebral point tenderness. No Meningismus. Chest/axilla: Normal chest wall appearance and motion. Nontender with no deformity. No lesions are appreciated. Cardiovascular: Regular rate and rhythm with a normal S1 and S2. No gallops, murmurs, or rubs. Normal PMI, no JVD. No pulse deficits. Respiratory: Lungs have equal breath sounds bilaterally, clear to auscultation and percussion. No rales, rhonchi or wheezes noted. No increased work of breathing, no retractions or nasal flaring. Back: No spinal tenderness. No costovertebral tenderness. Full range of motion. Skin: Warm, dry with normal turgor. Normal color with no rashes, no lesions, and no evidence of cellulitis. MS/ Extremity: Pulses equal, no cyanosis. Neurovascular intact. Full, normal range of motion., bilateral aka Neuro: Awake and alert, GCS 15, oriented to person, place, time, and situation. Cranial nerves II-XII grossly intact. Motor strength 5/5 in all extremities. Sensory grossly intact. Cerebellar exam normal. Normal gait. 12:13 Abdomen/GI: Inspection: abdomen appears normal, Bowel sounds: normal, Palpation: moderate abdominal tenderness, in the epigastric area, right upper quadrant and left upper quadrant, Liver: no appreciated palpable abnormalities, Hernia: not appreciated, Vital Signs: 11:05 BP 146 / 97; Pulse 99; Resp 19; Temp 98.7; Pulse Ox 100% on R/A; Weight 108.86 kg; iw Height 5 ft. 5 in. ; Pain 7/10; 12:00 BP 135 / 96; Pulse 84; Resp 15; Pulse Ox 98% on R/A; cm10 14:40 BP 165 / 103; Pulse 89; Resp 18; Pulse Ox 100% ; cm10 11:05 Body Mass Index 39.94 (108.86 kg, 165.1 cm) iw 11:05 Pain Scale: Adult iw MDM: 11:08 Medical Screening Exam initiated ashok 12:17 Differential diagnosis: Nonspecific abd pain, gastritis, pancreatitis, appendicitis, ashok diverticulitis, viral gastroenteritis, gastroenteritis. Data reviewed: vital signs, nurses notes, lab test result(s), radiologic studies, CT scan. Consideration of Admission/Observation Escalation of care including admission/observation considered. I considered the following discharge prescriptions or medication management in the emergency department Medications were administered in the Emergency Department. See MAR. Independent interpretation of the following test(s) in the Emergency Department CT Scan: My interpretation is ct ab/ pel. Test considered but Not performed: Ultrasound no gb usg. Historians other than the Patient: pt well informed. Care significantly affected by the following chronic conditions: insomnia. 06/15 11:10 Order name: CBC with Diff; Complete Time: 12:11 [facility] 06/15 11:10 Order name: CMP; Complete Time: 12:11 [facility] 06/15 11:10 Order name: Lipase; Complete Time: 12:11 [facility] 06/15 11:10 Order name: Test, Urine; Complete Time: 13:37 [facility] 06/15 11:10 Order name: Urinalysis w/ reflexes; Complete Time: 13:37 [facility] 06/15 11:21 Order name: CT Abd/Pelvis - IV Contrast Only; Complete Time: 14:02 [facility] 06/15 11:10 Order name: IV Saline Lock; Complete Time: 11:43 [facility] 06/15 11:10 Order name: Labs collected and sent; Complete Time: 11:43 [facility] Administered Medications: 11:55 Drug: Famotidine IVP 20 mg IVP once; dilute with 10 mL 0.9% NaCl; give over 2 minutes cm10 Route: IVP; Site: right antecubital; 12:35 Follow up: Response: No adverse reaction cm10 11:55 Drug: fentaNYL (PF) IVP 50 mcg IVP once Route: IVP; Site: right antecubital; cm10 12:35 Follow up: Response: No adverse reaction cm10 11:56 Drug: Ondansetron IVP 4 mg IVP once; over 2 minutes Route: IVP; Site: right antecubital;cm10 12:35 Follow up: Response: No adverse reaction cm10 11:56 Drug: NS 0.9% IV 1000 ml IV at 1 bolus Per protocol; to be given as a bolus over 60 cm10 minutes Route: IV; Rate: 1 bolus; Site: right antecubital; 14:41 Follow up: Response: No adverse reaction; IV Status: Completed infusion; IV Intake: cm10 1000ml 12:35 Drug: GI Cocktail without - (Maalox PO 30 ml, Lidocaine Mucous Membrane 2 % 15 cm10 ml) PO once Route: PO; 14:41 Follow up: Response: No adverse reaction cm10 12:35 Drug: Pantoprazole IVP 40 mg IVP once Route: IVP; Site: right antecubital; cm10 14:41 Follow up: Response: No adverse reaction cm10 12:48 Drug: Promethazine IM 25 mg IM once Route: IM; Site: right vastus lateralis; cm10 14:41 Follow up: Response: No adverse reaction cm10 13:51 Drug: NS 0.9% IV 1000 ml IV at 1000 ml once; to be given as a bolus over 60 minutes cm10 Route: IV; Rate: 1000 ml; Site: right antecubital; 14:41 Follow up: Response: No adverse reaction; IV Status: Completed infusion; IV Intake: cm10 1000ml Disposition Summary: 06/15/24 14:03 Discharge Ordered Notes: Location: Home ashok Problem: new ashok Symptoms: have improved ashok Condition: Stable ashok Diagnosis - Vomiting ashok - Epigastric abdominal tenderness ashok Followup: ashok - With: Private Physician - When: 2 - 3 days - Reason: Recheck today's complaints, Continuance of care, Re-evaluation by your physician Followup: ashok - With: Siobhan Kim MD - When: 2 - 3 days - Reason: Recheck today's complaints, Re-evaluation by your physician Discharge Instructions: - Discharge Summary Sheet ashok - Abdominal Pain, Adult ashok - Gastritis, Adult ashok - Gastritis, Adult, Ckll-jf-Cizh ashok - Abdominal Pain, Adult, Flao-jv-Sopr ashok Forms: - Medication Reconciliation Form ashok - Antibiotic Education ashok - Prescription Opioid Use ashok - Patient Portal Instructions ashok - Leadership Thank You Letter [facility] Prescriptions: - ondansetron 4 mg Oral Tablet,disintegrating - take 1 tablet ORAL route every 8 hours as needed for nausea and vomiting; 20 ashok tablet; Refills: 0, Product Selection Permitted - promethazine 25 mg Rectal suppository - insert 1 suppository RECTAL route every 6 hours as needed for nausea and ashok vomiting; 15 suppository; Refills: 0, Product Selection Permitted - Protonix 40 mg Oral Tablet - take 1 tablet ORAL route once daily; 30 tablet; Refills: 0, Product Selection ashok Permitted - dicyclomine 20 mg Oral tablet - take 1 tablet ORAL route 4 times per day; 28 tablet; Refills: 0, Product ashok Selection Permitted Signatures: Dispatcher [employer] EDMS Jean Carlos Dias MD MD cha Williams, Irene, RN RN iw Yusra Corral RN RN cm10 Corrections: (The following items were deleted from the chart) 11:10 11:10 CBC+H.LAB.BRZ ordered. EDMS EDMS 11:10 11:10 COMPREHENSIVE METABOLIC PANEL+C.LAB.BRZ ordered. EDMS EDMS 11:10 11:10 LIPASE+C.LAB.BRZ ordered. EDMS EDMS 11:10 11:10 Test, Urine+UC.LAB.BRZ ordered. EDMS EDMS 11:10 11:10 Urinalysis+U.LAB.BRZ ordered. EDMS EDMS 11:21 11:21 Abdomen Pelvis W Con+CT.RAD.BRZ ordered. EDMS EDMS
[2024-06-17 05:30] VITALS: TEMP 98.7
[2024-06-17 05:46] VITALS: BP 165/103; O2SAT 100
== END 2024-06-15 14:55 | disposition home or self-care (01) ==
LOC: ER 10:54
DX: R11.10 Vomiting, unspecified (principal); R10.816 Epigastric abdominal tenderness
CPT/HCPCS: 96361; 85025; 81001; 36415; 81025; 83690; 80053; 74177; 96375; 96372; 96374; 99284; Q9967; J2550; J2470; J3010; J2405; J7030 ×2

== ENCOUNTER 2024-06-17 04:13 | Observation (INO) | payer OTHER, SELFPAY ==
--- OUTSIDE RECORDS SUMMARY | 2024-06-17 04:24 | XMS REPORT | Continuity of Care Document ---
Author Name Unknown Address [address] [facility] [address] [place] [address] Organization [facility] [place] Address [address] [facility] [place] [address] Care Team Providers Care Stereo Compiler Name Role Phone Jess Munson MD Primary Care Physician + [phone] Jess Munson MD Attending Clinician [phone] JESS MUNSON Attending Clinician Unavailab JESS Killian Attending Clinician Unavailab le Doctor Unassigned, [place] Attending Clinician U violaailANGUS Alvarez Attending Clinician Unavailable ANGUS DWYER Attending Clinician Unavailable nAgus Dwyer DO Attending Clinician [phone] ASTER LEE Attending Clinician Unavailable ASTER LEE Attending Clinician Unavailable Aster Lee NP Attending Clinician [phone] Eva Bryan MD Attending Clinician [phone] EVA BRYAN Attending Clinician Unavailable VANESSA LEYVA Attending Clinician Unavailable VANESSA LEYVA Attending Clinician Unavailable SHORTY ZAMBRANO Attending Clinician Unavailable SHORTY ZAMBRANO Attending Clinician Unavailable Shorty Draper Attending Clinician [phone] Radha Hurst MD Attending Clinician + [phone] Gianni Lopez CRNA Attending Clinician [phone] TIANNA MEI Attending Clinician Unavailable TIANNA MEI Attending Clinician Unavailable CARO BAUER Attending Clinician Unavailable CARO BAUER Attending Clinician Unavailable Caro Bauer MD Attending Clinician + [phone] Yann Ordonez Attending Clinician + [phone] Yisel Hart MD Attending Clinician +[phone] YISEL HART Attending Clinician Unavailable KONRAD ORDOÑEZ Attending Clinician Unavailab KONRAD Holguin Attending Clinician Unavailab merly Ordoñez BROADLOOM WEAVER, Konrad Attending Clinician [phone] Tianna Young Attending Clinician [phone] ISAAC SHAY Attending Clinician Unavailable Vanessa Leyva MD Attending Clinician +[phone] Jose De Jesus Medina MD Attending Clinician +[phone] JOSE DE JESUS MEDINA Attending Clinician Unavailable JOSE DE JESUS MEDINA Attending Clinician Unavailable 2, [facility] Attending Clinician Unavailable KELLY SIMMS Attending Clinician UnavailKELLY Ferrera Attending Clinician Unavailelliott Simms MD, Kelly Tolentino Attending Clinician + [phone] TIFF ISABEL Attending Clinician Unavailable TIFF ISABEL Attending Clinician Unavailable Maame BROADLOOM WEAVER, Tiff Attending Clinician +[phone] 2, [facility] Attending Clinician Unavailable BONITA TRIVEDI Attending Clinician Unavailab Bonita Hernandez DO Attending Clinician + [phone] Carlos Ibrahim MD Attending Clinician [phone] Doctor Unassigned, [place] Attending Clinician U NICOLE Aparicio Attending Clinician UnavailNICOLE Sellers Attending Clinician Unavaila KAMILA Barrios Attending Clinician Unavailable JACINTA VOSS Attending Clinician Unavaila susu Rivera, [facility] Attending Clinician Henrietta Meche Junior Attending Clinician + Shanika PIERRE, Jacinta Castro Attending Clinician [phone] MECHE ROBERSON Attending Clinician Unavail able Rodrick Carlisle Attending Clinician UnaDREW Thacker Attending Clinician Unavailable RODRICK PETE Attending Clinician UnavailWilver Khan MD Attending Clinician +[phone] LOVE DOWELL Attending Clinician UnavailLOVE Gonzalez Attending Clinician Unavailabl BRENDA Klein Attending Clinician Unavailable Brenda Velásquez MD Attending Clinician [phone] Richard PAC, Fernando Isabel Attending Clinician [phone] Ultrasound, Ang-Mfm Attending Clinician Unavaila Vinh Romano MD Attending Clinician [phone] VINH MONCADA Attending Clinician Unavailable VINH MONCADA Attending Clinician Unavailable Juan BOND, Ivanna Attending Clinician [phone] Maddie Romeo MD Attending Clinician [phone] MADDIE ROMEO Attending Clinician Unavailable Lab, Ang-Rmchp Attending Clinician Unavailable Chema PAC, Alayna S Attending Clinician [phone] Abdullahi Gomez MD Attending Clinician [phone] Foreign Calvillo Attending Clinician + [phone] Edith Terry MD Attending Clinician +[phone] EDITH TERRY Attending Clinician Unavailable EDITH TERRY Attending Clinician Unavailable SHORTY ZAMBRANO Admitting Clinician Unavailable EVA BRYAN Admitting Clinician Unavailable Eva Bryan MD Admitting Clinician [phone] YISEL HART Admitting Clinician Unavailable Yisel Hart MD Admitting Clinician +[phone] KELLY SIMMS Admitting Clinician UnavailVANESSA Garza Admitting Clinician Unavailable Vanessa Leyva MD Admitting Clinician +[phone] BRENDA VELÁSQUEZ Admitting Clinician Unavailable Brenda Velásquez MD Admitting Clinician +[phone] Edith Terry MD Admitting Clinician EDITH TERRY Admitting Clinician Unavailable Payers Payer Name Policy Type Policy Number Effective Date Expirati on Date Source [employer] [id number] 2021 00:00:00 Problems Condition Name Condition Details Condition Category Status Onset Date Resolution Date Last Treatment Date Treating Clinician Comments Source Gallbladde r sludge Gallbladde r sludge Disease Active 2023-02-23 00:00: 00 [facility] Hematemesi s with nausea Hematemesi s with nausea Disease Active 2023-02 0-03 00:00: 00 [facility] Coffee ground emesis Coffee ground emesis Disease Active 2023-02 0-03 00:00: 00 [facility] Abdominal pain, epigastric Abdominal pain, epigastric Disease Active 2023-02 0-03 00:00: 00 [facility] Papanicola ou smear of cervix with low grade squamous intraepith elial lesion (LGSIL) Papanicola ou smear of cervix with low grade squamous intraepith elial lesion (LGSIL) Disease Active 07-06 00:00: 00 Overview: Formattin g of this note might be different from the original. LGSIL in 2021 needs repeat pap smear in 2022. 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 Disease Active 4-12 00:00: 00 [facility] Tetrahydro cannabinol (THC) use disorder, mild, abuse Tetrahydro cannabinol (THC) use disorder, mild, abuse Disease Resolve d 5-10 00:00: 00 2022-12-25 00:00:00 2022-12-25 13:59:24 [facility] Chronic hypertensi on with superimpos ed preeclamps ia Chronic hypertensi on with superimpos ed preeclamps ia Disease Resolve d 2021-02 0-08 00:00: 00 2022-01-20 00:00:00 2022-01-20 14:17:40 [facility] Supervisio n of high risk , antepartum Supervisio n of high risk , antepartum Disease Resolve d 5-05 00:00: 00 2022-01-20 00:00:00 2022-01-20 14:17:35 [facility] GBS (group B Streptococ cus carrier), +RV culture, 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 Will need ABX in labor. [facility] Single liveborn, born in hospital, delivered by vaginal delivery Single liveborn, born in hospital, delivered by vaginal delivery Disease Resolve d 2021-02 0-09 00:00: 00 2021-12-22 00:00:00 2021-12-22 07:58:27 [facility] Morbid obesity with body mass index of 40.0-49.9 Morbid obesity with body mass index of 40.0-49.9 Disease Resolve d 2021-02 0-08 00:00: 00 2021-12-22 00:00:00 2021-12-22 15:59:51 [facility] Severe pre-eclamp shena in third trimester Severe pre-eclamp shena in third trimester Disease Resolve d 2021-02 0-08 00:00: 00 2021-12-22 00:00:00 2021-12-22 07:58:22 [facility] Elevated blood pressure reading without diagnosis of hypertensi on Elevated blood pressure reading without diagnosis of hypertensi on Disease Resolve d 9-08 00:00: 00 2021-12-22 00:00:00 2021-12-22 07:58:07 [facility] Proteinuri a affecting in third trimester Proteinuri a affecting in third trimester Disease Resolve d 2021-0 9-08 00:00: 00 2021-12-22 00:00:00 2021-12-22 07:58:17 [facility] Intractabl e nausea and vomiting Intractabl e nausea and vomiting Disease Resolve d 2021-0 7-05 00:00: 00 2021-12-22 00:00:00 2021-12-22 07:58:09 [facility] Urinary tract infection without hematuria, site unspecifie d Urinary tract infection without hematuria, site unspecifie d Disease Resolve d 0 6-02 00:00: 00 2021-12-22 00:00:00 2021-12-22 07:57:57 [facility] Nausea and vomiting during Nausea and vomiting during Disease Resolve d 2021-0 5-10 00:00: 00 2021-12-22 00:00:00 2021-12-22 07:58:11 [facility] Nausea and vomiting during Nausea and vomiting during Disease Resolve d 2021-0 5-10 00:00: 00 2021-12-22 00:00:00 2021-12-22 07:58:11 [facility] Primigravi da in second trimester Primigravi da in second trimester Disease Resolve d 2021-0 5-05 00:00: 00 2021-12-22 00:00:00 2021-12-22 07:58:15 [facility] Obesity in Obesity in Disease Resolve d 2021-0 5-05 00:00: 00 2021-12-22 00:00:00 2021-12-22 07:58:13 [facility] Chronic hypertensi on affecting Chronic hypertensi on affecting Disease Resolve d 2021-0 4-24 00:00: 00 2021-12-22 00:00:00 2021-12-22 07:58:04 [facility] BMI 40.0-44.9, adult BMI 40.0-44.9, adult Disease Resolve d 2021-0 4-23 00:00: 00 2021-12-22 00:00:00 2021-12-22 15:59:13 [facility] 15 weeks gestation of 15 weeks gestation of Disease Resolve d 2021-0 4-12 00:00: 00 2021-12-22 00:00:00 2021-12-22 07:58:01 [facility] Hyperemesi s Hyperemesi s Disease Resolve d 2021-0 5-10 00:00: 00 2021-11-26 00:00:00 2021-11-26 09:09:11 [facility] Hyperbilir ubinemia Hyperbilir ubinemia Disease Resolve d 2021-0 4-25 00:00: 00 2021-11-26 00:00:00 2021-11-26 09:09:06 [facility] Hypomagnes emia Hypomagnes emia Disease Resolve d 2021-0 4-25 00:00: 00 2021-11-26 00:00:00 2021-11-26 09:09:05 [facility] Hypocalcem ia Hypocalcem ia Disease Resolve d 2021-0 4-25 00:00: 00 2021-11-26 00:00:00 2021-11-26 09:09:03 [facility] Hypokalemi a Hypokalemi a Disease Resolve d 2021-0 4-12 00:00: 00 2021-11-26 00:00:00 2021-11-26 09:09:30 [facility] Hyponatrem ia Hyponatrem ia Disease Resolve d 2021-0 4-12 00:00: 00 2021-11-26 00:00:00 2021-11-26 09:09:33 [facility] Tachycardi a Tachycardi a Disease Resolve d 2021-0 4-12 00:00: 00 2021-11-26 00:00:00 2021-11-26 09:09:30 [facility] Nausea and vomiting in prior to 22 weeks gestation Nausea and vomiting in prior to 22 weeks gestation Disease Resolve d -12 00:00: 00 2021-11-26 00:00:00 2021-11-26 09:09:43 [facility] Nausea and vomiting in prior to 22 weeks gestation Nausea and vomiting in prior to 22 weeks gestation Disease Resolve d 12 00:00: 00 2021-11-26 00:00:00 2021-11-26 09:09:43 [facility] Allergies, Adverse Reactions, Alerts Allergy Name Allergy Type Status Severity Reaction(s) Onset Date Inactive Date Treating Clinician Comments Source Egg Propensi ty to adverse reaction s Active Nausea and/or Vomiting 06-29 00:00: 00 [facility] EGG DRUG INGREDI Active N/V 06-29 00:00: 00 [facility] Metoclop ramide Drug Allergy Active Extra pyramidal effects 05-31 00:00: 00 [facility] METOCLOP RAMIDE DRUG INGREDI Active Med EP Effects 05-31 00:00: 00 [facility] Family History Family Member Diagnosis Comments Start Date Stop Date Sourc e Natural mother Diabetes [facility] Natural mother Heart [facility] Social History Social Habit Start Date Stop Date Quantity Comments Source ASSERTION 2021-03-26 00:00:00 Not [facility] of tobacco use Current smoker [facility] Alcoholic beverage intake 2024-04-16 00:00:00 2024-04-16 00:00:00 Current drinker of alcohol (finding) [facility] Source Ex-smoker 2023-11-26 00:00:00 [facility]23[facility]26 [facility] Ordered Medication Name Filled Medication Name Start Date Stop Date Current Medication? Ordering Clinician Indication Dosage Frequency Signature (SIG) Comments Components Source SERTraline 50 mg tablet 05-27 00:00: 00 Yes [id number] 50mg Take 1 tablet by mouth in the morning. [facility] ramelteon 8 mg tablet 05-27 00:00: 00 Yes [id number] 8mg Take 1 tablet by mouth at bedtime. [facility] doxepin 10 mg capsule 3-14 00:00: 00 05-27 00:00 :00 No [id number] 10mg Take 1 capsule by mouth at bedtime. [facility] SERTraline 25 mg tablet 3-14 00:00: 00 05-27 00:00 :00 No [id number] 25mg Take 1 tablet by mouth in the morning. [facility] ondansetron 4 mg disintegrat ing tablet 04-16 00:00: 00 Yes [id number] 4mg Take 1 tablet by mouth every 8 (eight) hours as needed for Nausea and Vomiting (N/V). [facility] naproxen (NAPROSYN) tablet 500 mg 04-12 11:15: 00 04-12 11:05 :00 No 500mg 500 mg, Oral, Once, 1 dose, On 04/12/24 at 0515, Routine [facility] butalbital- acetaminoph en-caff (ESGIC) 50-325-40 mg tablet 1 tablet 04-12 11:00: 00 04-12 11:05 :00 No 1{tbl} 1 tablet, Oral, ONCE, 1 dose, On 04/12/24 at 0500, [facility] chlorphenir amine (CHLORTABS) 4 mg tablet 04-12 00:00: 00 04-16 00:00 :00 No [id number] 4mg Take 1 tablet by mouth every 6 (six) hours as needed for Allergies. [facility] methylPREDN ISolone (MEDROL, MARCO ANTONIO,) 4 mg tablets 04-12 00:00: 00 04-16 00:00 :00 No [id number] Take by mouth SEE-INSTRU CTIONS. follow package directions [facility] phentermine -topiramate (QSYMIA) 7.5-46 mg per capsule 2- 00:00: 00 Yes [id number] 104 1{capsu le} Take 1 capsule by mouth in the morning. Start 3.75mg qAM x 14 days; then increase to 7.5mg qAM. [facility] phentermine -topiramate (QSYMIA) 3.75-23 mg per capsule - 00:00: 00 04-15 05:59 :00 Yes [id number] 104 1{capsu le} Take 1 capsule by mouth in the morning for 14 days. [facility] zolpidem 5 mg tablet 2- 00:00: 00 Yes [id number] 5mg Take 1 tablet by mouth at bedtime as needed for Insomnia. [facility] pantoprazol e 40 mg EC tablet 2- 00:00: 00 Yes [id number] 40mg Take 1 tablet by mouth in the morning. [facility] HYDROcodone -acetaminop hen (NORCO) 10-325 mg tablet 1 tablet 03-16 09:30: 00 03-16 08:29 :00 No 1{tbl} 1 tablet, Oral, ONCE, 1 dose, On 03/16/24 at 0330, Routine [facility] cephALEXin (KEFLEX) capsule 500 mg 03-16 08:30: 00 03-16 08:29 :00 No 500mg 500 mg, Oral, ONCE, 1 dose, On 03/16/24 at 0230, RACHAEL, Reason for Anti-Infec tive: Documented Infection, Documented Infection Site: HEENT, Duration of Therapy: Once (ED) [facility] cephALEXin 500 mg capsule 03-16 00:00: 00 03-24 05:59 :00 No [id number] 500mg Take 1 capsule by mouth 4 (four) times daily for 7 days. [facility] indomethaci n 50 mg capsule 03-16 00:00: 00 03-24 05:59 :00 No [id number] 50mg Take 1 capsule by mouth in the morning and 1 capsule at noon and 1 capsule in the evening. Take with meals. Do all this for 7 days. [facility] tirzepatide , weight loss, 5 mg/0.5 mL subcutaneou s injection 03-05 00:00: 00 Yes [id number] 104 After 2.5mg qWeek x 4 Weeks, then increase to 5mg qWeek [facility] tirzepatide 2.5 mg/0.5 mL subcutaneou s injection pen 03-05 00:00: 00 04-16 00:00 :00 No [id number] 104 2.5mg inject 2.5 mg under the skin weekly. Start 2.5mg qWeek x 4 Weeks, then increase to 5mg qWeek x 4 Weeks, then increase to 7.5mg qWeek x 4 Weeks, the increase to 10mg qWeek. [facility] phentermine -topiramate 3.75-23 mg per capsule 03-05 00:00: 00 03-13 05:59 :00 No [id number] 104 1{capsu le} Take 1 capsule by mouth in the morning for 7 days. [facility] zolpidem 5 mg tablet - 00:00: 00 03-28 00:00 :00 No [id number] 5mg Take 1 tablet by mouth at bedtime as needed for Insomnia. [facility] phentermine -topiramate (QSYMIA) 3.75-23 mg per capsule 02-26 00:00: 00 03-05 00:00 :00 No [id number] 104 1{capsu le} Take 1 capsule by mouth in the morning. [facility] ondansetron (ZOFRAN-ODT ) disintegrat ing tablet 4 mg 02-21 09:45: 00 02-21 08:46 :00 No 4mg 4 mg, Oral, ONCE, 1 dose, On Sun02/22/24 at 0345, [facility] cefTRIAXone (ROCEPHIN) 1,000 mg in water for injection, sterile 10 mL IV Push 02-21 08:30: 00 02-21 08:31 :00 No 1000mg 1,000 mg, Intravenou s, ONCE, 1 dose, On Sun02/22/24 at 0230, 10 mL, Reason for Anti-Infec tive: Empiric Therapy for Suspected Infection, Empiric Therapy Site: Urine, Duration of therapy: Once (ED) [facility] iopamidol (ISOVUE 370-500 mL) injection 80 mL 02-21 08:30: 00 02-21 08:30 :00 No [id number] 80mL 80 mL, Intravenou s, ONCE, 1 dose, On Sun02/22/24 at 0230, Routine [facility] maalox/diph enhydrAMINE :lidocaine2 %viscous 1:1:1: suspension (COMPOUNDED ) 02-21 07:45: 00 02-21 07:36 :00 No 15mL 15 mL, Oral, ONCE, 1 dose, On Sun02/22/24 at 0145, [facility] NaCl 0.9% (NS) bolus infusion 1,000 mL 02-21 06:45: 00 02-21 08:11 :00 No 1000mL at 999 mL/hr, 1,000 mL, IV Infusion, ONCE, 1 dose, On Sun02/22/24 at 0045, [facility] morpHINE (4 mg/mL) injection 4 mg 02-21 06:00: 02-21 06:13 :00 No 4mg 4 mg, Slow IV Push, ONCE, 1 dose, On Sun02/22/24 at 0000, STAT [facility] ondansetron (ZOFRAN (PF)) injection 8 mg 02-21 06:00: 00 02-21 06:17 :00 No 8mg 8 mg, Slow IV Push, ONCE, 1 dose, On Sun02/22/24 at 0000, Administer over 2-5 Minutes, 4 mL [facility] cefdinir 300 mg capsule 02-21 00:00: 00 03-01 05:59 :00 No [id number] 300mg Take 1 capsule by mouth every 12 (twelve) hours for 7 days. [facility] ondansetron 4 mg disintegrat ing tablet 02-21 00:00: 00 02-26 00:00 :00 No [id number] 4mg Take 1 tablet by mouth every 8 (eight) hours as needed for Nausea and Vomiting (N/V). [facility] acetaminoph en (TYLENOL EXTRA STRENGTH) 500 mg tablet 2023-02 00:00: 00 02-26 00:00 :00 No [id number] 1000mg Take 2 tablets by mouth every 8 (eight) hours for 15 days. [facility] ibuprofen 800 mg tablet 2023-02 00:00: 00 02-26 00:00 :00 No [id number] 800mg Take 1 tablet by mouth every 8 (eight) hours for 15 days. [facility] HYDROcodone -acetaminop hen (NORCO 5) tablet 1 tablet 2023-02 18:30: 00 01-28 19:00 :00 No 1{tbl} 1 tablet, Oral, ONCE, 1 dose, On Sun01/29/24 at 1230, Routine, PACU [facility] lactated ringers IV infusion 1,000 mL 2023-02 18:30: 00 01-28 22:20 :16 No 1000mL at 50 mL/hr, 1,000 mL, IV Infusion, CONTINUOUS , Starting on Sun01/29/24 at 1230, Until Sun01/29/24 at 1620, Routine, PACU [facility] HYDROmorphO ne (DILAUDID) injection 0.2 mg 2023-02 18:19: 17 01-28 22:20 :16 No .2mg 0.2 mg, Slow IV Push, Q5MIN PRN, 10 doses, Starting on Sun01/29/24 at 1219, Until Sun01/29/24 at 1620, Routine, Pain (scale 7-10), PACU, Is this medication approved by a Faculty level provider? Yes, research assistant member approving Restricted medication : RADHA HURST [facility] FENTanyl (PF) (SUBLIMAZE) injection 25 mcg 2023-02 18:19: 17 01-28 22:20 :16 No 25ug 25 mcg, Slow IV Push, Q5MIN PRN, 4 doses, Starting on Sun01/29/24 at 1219, Until Sun01/29/24 at 1620, Routine, Pain Scale 4-6, PACU [facility] ondansetron (ZOFRAN (PF)) injection 4 mg 2023-02 18:19: 17 01-28 22:20 :16 No 4mg 4 mg, Slow IV Push, PRN, 1 dose, Starting on Sun01/29/24 at 1219, Until Sun01/29/24 at 1620, Administer over 2-5 Minutes, 2 mL, PACU [facility] bupivacaine -epinephrin e-pf (SENSORCAIN E W/EPINEPHRI NE) 0.25 %-1:200,000 30 mL, lidocaine 1% (PF) (XYLOCAINE) 30 mL 2023-02 16:57: 00 01-28 18:29 :17 No PRN, Starting on Sun01/29/24 at 1057, Intra-op [facility] sodium chloride 0.9 % irrigation solution 2023-02 16:56: 00 01-28 18:29 :17 No PRN, Starting on Sun01/29/24 at 1056, Until Sun01/29/24 at 1229, Intra-op [facility] acetaminoph en (TYLENOL) 325 mg tablet 2023-02 00:00: 00 02-05 05:59 :00 No [id number] 650mg Take 2 tablets by mouth every 6 (six) hours for 7 days. [facility] ibuprofen 800 mg tablet 2023-02 00:00: 00 02-05 05:59 :00 No [id number] 800mg Take 1 tablet by mouth every 6 (six) hours for 7 days. [facility] traMADoL 50 mg tablet 2023-02 00:00: 00 02-05 05:59 :00 No [id number] 50mg Take 1 tablet by mouth every 8 (eight) hours for 7 days. Indication s: acute pain, chronic pain [facility] HYDROcodone -acetaminop hen 5-325 mg tablet 2023-02 00:00: 00 02-05 05:59 :00 No [id number] 1{tbl} Take 1 tablet by mouth every 6 (six) hours as needed for Pain (scale 7-10) for up to 7 days. Indication s: acute pain [facility] phentermine 37.5 mg tablet 2023-02 00:00: 00 02-26 00:00 :00 No [id number] 104 37.5mg Take 1 tablet by mouth daily with breakfast. [facility] zolpidem 5 mg tablet 2023-02 00:00: 00 02-26 00:00 :00 No [id number] 5mg Take 1 tablet by mouth at bedtime as needed for Insomnia. [facility] ondansetron 8 mg tablet 2023-02 00:00: 00 02-26 00:00 :00 No [id number] 8mg Take 1 tablet by mouth every 8 (eight) hours as needed for Nausea and Vomiting (N/V). [facility] ketorolac (TORADOL) injection 30 mg 2023-02 11:30: 00 01-11 10:39 :00 No 30mg 30 mg, Slow IV Push, ONCE, 1 dose, On 01/12/24 at 0530, Routine [facility] fentanyl PF (SUBLIMAZE (PF)) injection 50 mcg 2023-02 11:15: 00 01-11 11:15 :00 No 50ug 50 mcg, Slow IV Push, ONCE, 1 dose, On 01/12/24 at 0515, Routine [facility] ondansetron (ZOFRAN (PF)) injection 4 mg 2023-02 10:30: 00 01-11 10:29 :00 No 4mg 4 mg, Slow IV Push, ONCE, 1 dose, On 01/12/24 at 0430, Administer over 2-5 Minutes, [facility] (SUBLIMAZE (PF)) injection 50 mcg 2023-02 10:30: 00 01-11 10:40 :00 No 50ug 50 mcg, Slow IV Push, ONCE, 1 dose, On 01/12/24 at 0430, RACHAEL [facility] ondansetron (ZOFRAN (PF)) injection 4 mg 2023-02 10:15: 00 01-11 10:07 :00 No 4mg 4 mg, Slow IV Push, ONCE, 1 dose, On 01/12/24 at 0415, Administer over 2-5 Minutes, 2 mL [facility] traMADoL (ULTRAM) 50 mg tablet 2023-02 00:00: 00 02-26 00:00 :00 No [id number] 50mg Take 1 tablet by mouth every 6 (six) hours as needed for Pain (scale 7-10). Indication s: acute pain [facility] dicyclomine 20 mg tablet 2023-02 00:00: 00 02-26 00:00 :00 No [id number] 20mg Take 1 tablet by mouth every 6 (six) hours as needed for Abdominal pain. [facility] ondansetron (ZOFRAN) 4 mg tablet 2023-02 00:00: 00 01-27 00:00 :00 No [id number] 4mg Take 1 tablet by mouth every 8 (eight) hours as needed for Nausea and Vomiting (N/V). [facility] ondansetron 8 mg tablet 2023-02 00:00: 00 01-24 00:00 :00 No [id number] 8mg Take 1 tablet by mouth every 8 (eight) hours as needed for Nausea and Vomiting (N/V). [facility] ondansetron 4 mg disintegrat ing tablet 2023-02 00:00: 00 01-10 00:00 :00 No [id number] 4mg Take 1 tablet by mouth every 8 (eight) hours as needed for Nausea and Vomiting (N/V). [facility] phentermine 37.5 mg tablet 2023-02 00:00: 00 01-24 00:00 :00 No [id number] 104 37.5mg Take 1 tablet by mouth daily with breakfast. [facility] zolpidem 5 mg tablet 2023-02 00:00: 00 01-24 00:00 :00 No [id number] 5mg Take 1 tablet by mouth at bedtime as needed for Insomnia. [facility] ondansetron 4 mg disintegrat ing tablet 2023-02 00:00: 00 01-09 00:00 :00 No [id number] 4mg Take 1 tablet by mouth every 8 (eight) hours as needed for Nausea and Vomiting (N/V). [facility] ondansetron 4 mg tablet 2023-02 00:00: 00 01-10 00:00 :00 No [id number] 4mg Take 1 tablet by mouth every 8 (eight) hours as needed for Nausea and Vomiting (N/V). [facility] TRAZODONE 100 mg tablet 2023-02 00:00: 00 02-26 00:00 :00 No [id number] 100mg TAKE 1 TABLET BY MOUTH EVERYDAY AT BEDTIME [facility] pantoprazol e 40 mg EC tablet 11-18 00:00: 00 03-28 00:00 :00 No [id number] 40mg Take 1 tablet by mouth in the morning. [facility] phentermine 37.5 mg tablet 11-18 00:00: 12-24 00:00 :00 No [id number] 104 37.5mg Take 1 tablet by mouth daily with breakfast. [facility] zolpidem 5 mg tablet 11-18 00:00: 12-24 00:00 :00 No [id number] 5mg Take 1 tablet by mouth at bedtime as needed for Insomnia. [facility] proMETHazin e (PHENERGAN) 12.5 mg in NS 50 mL IV piggyback (CNR) 11-17 15:30: 00 11-17 15:49 :00 No 12.5mg 12.5 mg, IV Piggyback, at 200 mL/hr Administer over 15 Minutes, ONCE, 1 dose, [facility] 11/18/23 at 1030[facility] (4 mg/mL) injection 4 mg 11-17 15:30: 00 11-17 15:34 :00 No 4mg 4 mg, Slow IV Push, ONCE, 1 dose, On 11/18/23 at 1030, STAT [facility] ketorolac (TORADOL) injection 30 mg 11-17 15:00: 00 11-17 14:09 :00 No 30mg 30 mg, Slow IV Push, ONCE, 1 dose, On 11/18/23 at 1000, [facility] famotidine (PEPCID (PF)) injection 20 mg 11-17 14:15: 00 11-17 14:09 :00 No 20mg 20 mg, Slow IV Push, ONCE, 1 dose, On 11/18/23 at 0915, [facility] iopamidol (ISOVUE 370-500 mL) injection 100 mL 11-17 13:30: 00 11-17 13:45 :00 No [id number] 100mL 100 mL, Intravenou s, ONCE, 1 dose, On Sun11/18/23 at 0845, Routine [facility] NaCl 0.9% (NS) IV infusion 1,000 mL 11-17 13:00: 00 11-17 15:15 :00 No 1000mL at 999 mL/hr, Intravenou s, ONCE, 1 dose, On Sun11/18/23 at 0800, [facility] proMETHazin e (PHENERGAN) 12.5 mg in NS 50 mL IV piggyback (CNR) 11-17 12:30: 00 11-17 13:33 :00 No 12.5mg 12.5 mg, IV Piggyback, at 200 mL/hr Administer over 15 Minutes, ONCE, 1 dose, On Sun11/18/23 at 0730, [facility] fent[facility] PF (SUBLIMAZE (PF)) injection 100 mcg 11-17 11:15: 00 11-17 11:16 :00 No 100ug 100 mcg, Slow IV Push, ONCE, 1 dose, On Sun11/18/23 at 0615, Routine [facility] ondansetron (ZOFRAN (PF)) injection 8 mg 11-17 11:00: 00 11-17 11:10 :00 No 8mg 8 mg, Slow IV Push, ONCE, 1 dose, On Sun11/18/23 at 0600, [facility] sodium chloride (NS) injection 5 mL 11-17 10:51: 45 Yes 5mL 5 mL, Intravenou s, PRN, Starting on Sun11/18/23 at 0551, Until Discontinu ed, Routine, IV line flushing [facility] proMETHazin e 25 mg tablet 11-17 00:00: 00 02-26 00:00 :00 No [id number] 25mg Take 1 tablet by mouth every 6 (six) hours as needed for Nausea and Vomiting (N/V). [facility] traMADoL 50 mg tablet 11-17 00:00: 00 01-28 00:00 :00 No [id number] 50mg Take 1 tablet by mouth every 6 (six) hours as needed (pain). Indication s: acute pain [facility] zolpidem 5 mg tablet 11-17 00:00: 00 11-17 00:00 :00 No [id number] 5mg Take 1 tablet by mouth at bedtime as needed for Insomnia. [facility] KCL (KLOR-CON M20) tablet 20 mEq 11-07 19:30: 00 11-07 19:56 :00 No 20meq 20 mEq, Oral, ONCE, 1 dose, On [place] 11/08/23 at 1430, [facility] proMETHazin e (PHENERGAN) 12.5 mg in NS 50 mL IV piggyback (CNR) 11-07 17:45: 00 11-07 18:53 :00 No 12.5mg 12.5 mg, IV Piggyback, at 200 mL/hr Administer over 15 Minutes, ONCE, 1 dose, On [place] 11/08/23 at 1245, [facility] ondansetron (ZOFRAN (PF)) injection 4 mg 11-07 16:30: 00 11-07 16:38 :00 No 4mg 4 mg, Slow IV Push, ONCE, 1 dose, On [place] 11/08/23 at 1130, [facility] famotidine (PEPCID (PF)) injection 20 mg 11-07 16:30: 00 11-07 16:38 :00 No 20mg 20 mg, Slow IV Push, ONCE, 1 dose, On [place] 11/08/23 at 1130, [facility] NaCl 0.9% (NS) bolus infusion 1,000 mL 11-07 16:30: 00 11-07 19:53 :00 No 1000mL at 999 mL/hr, 1,000 mL, IV Infusion, ONCE, 1 dose, On [place] 11/08/23 at 1130, [facility] morpHINE (4 mg/mL) injection 4 mg 11-07 15:45: 00 11-07 18:39 :00 No 4mg 4 mg, Slow IV Push, ONCE, 1 dose, On [place] 11/08/23 at 1045, [facility] ondansetron 4 mg disintegrat ing tablet 11-07 00:00: 00 11-12 04:59 :00 No [id number] 4mg Take 1 tablet by mouth every 8 (eight) hours as needed for Nausea and Vomiting (N/V) for up to 4 days. [facility] zolpidem 5 mg tablet 10-18 00:00: 00 11-15 00:00 :00 No [id number] 5mg Take 1 tablet by mouth at bedtime as needed for Insomnia. [facility] ergocalcife rol, vitamin d2, (VITAMIN D2) 1,250 mcg (50,000 unit) capsule 10-15 00:00: 00 Yes [id number] 39095T Take 1 capsule by mouth weekly. [facility] phentermine 37.5 mg tablet 10-15 00:00: 00 11-18 00:00 :00 No [id number] 37.5mg Take 1 tablet by mouth daily with breakfast. [facility] ergocalcife rol, vitamin d2, (VITAMIN D2) 1,250 mcg (50,000 unit) capsule 10-02 00:00: 00 10-14 00:00 :00 No [id number] 12155I Take 1 capsule by mouth weekly. [facility] zolpidem 5 mg tablet 09-12 00:00: 00 10-15 00:00 :00 No [id number] 5mg Take 1 tablet by mouth at bedtime as needed for Insomnia. [facility] phentermine 37.5 mg tablet 2024-0 7-25 00:00: 00 10-14 00:00 :00 No [id number] 37.5mg Take 1 tablet by mouth daily with breakfast. [facility] phentermine 37.5 mg tablet 08-05 00:00: 00 09-11 00:00 :00 No [id number] 37.5mg Take 1 tablet by mouth daily with breakfast. [facility] zolpidem 5 mg tablet 08-05 00:00: 00 09-11 00:00 :00 No [id number] 5mg Take 1 tablet by mouth at bedtime as needed for Insomnia. [facility] traZODone 100 mg tablet 07-24 00:00: 00 12-09 00:00 :00 No [id number] 100mg Take 1 tablet by mouth at bedtime. [facility] acetaminoph en (TYLENOL) tablet 650 mg 06-20 17:30: 00 06-20 17:25 :00 No 650mg 650 mg, Oral, ONCE, 1 dose, On Sun06/21/23 at 1230, [facility] sulfamethox azole-trime thoprim 800-160 mg per tablet 06-20 00:00: 00 08-05 00:00 :00 No [id number] 1{tbl} Take 1 tablet by mouth every 12 (twelve) hours. [facility] phentermine 37.5 mg tablet 4-09 00:00: 00 08-05 00:00 :00 No [id number] 37.5mg Take 1 tablet by mouth daily with breakfast. [facility] traZODone 100 mg tablet 0 3-04 00:00: 00 07-24 00:00 :00 No [id number] 100mg Take 1 tablet by mouth at bedtime. [facility] phentermine 37.5 mg tablet 2-22 00:00: 00 05-28 00:00 :00 No [id number] 37.5mg Take 1 tablet by mouth daily with breakfast. [facility] zolpidem 5 mg tablet 2-15 00:00: 00 08-05 00:00 :00 No [id number] 5mg Take 1 tablet by mouth at bedtime as needed for Insomnia. [facility] phentermine 37.5 mg tablet 03-02 00:00: 00 04-11 00:00 :00 No [id number] 37.5mg Take 1 tablet by mouth daily with breakfast. [facility] zolpidem 5 mg tablet 02-20 00:00: 00 04-05 00:00 :00 No [id number] 5mg Take 1 tablet by mouth at bedtime as needed for Insomnia. [facility] phentermine 37.5 mg tablet 2022-02 00:00: 00 03-02 00:00 :00 No [id number] 37.5mg Take 1 tablet by mouth daily with breakfast. [facility] traZODone 100 mg tablet 2022-02 00:00: 00 04-22 00:00 :00 No [id number] 100mg Take 1 tablet by mouth at bedtime. [facility] phentermine 37.5 mg tablet 2022-02 00:00: 00 01-26 00:00 :00 No [id number] 37.5mg Take 1 tablet by mouth daily with breakfast. [facility] zolpidem 5 mg tablet 2022-02 00:00: 00 02-19 00:00 :00 No [id number] 5mg Take 1 tablet by mouth at bedtime as needed for Insomnia. [facility] TRAZODONE 50 mg tablet 2022-02 00:00: 00 01-24 00:00 :00 No [id number] 50mg TAKE 1 TABLET BY MOUTH EVERYDAY AT BEDTIME [facility] ramelteon 8 mg tablet 2022-02 1-16 00:00: 00 01-24 00:00 :00 No [id number] 8mg Take 1 tablet by mouth at bedtime. [facility] Doxepin 6 mg Tab 2022-02-09 00:00: 00 01-04 00:00 :00 No [id number] 6mg Take 6 mg by mouth at bedtime. [facility] ergocalcife rol, vitamin d2, (VITAMIN D2) 1,250 mcg (50,000 unit) capsule 2022-02 00:00: 00 09-30 00:00 :00 No [id number] 18614O Take 1 capsule by mouth weekly. [facility] traZODone 50 mg tablet 2022-02 00:00: 00 01-16 00:00 :00 No [id number] 50mg Take 1 tablet by mouth at bedtime. [facility] medroxyPROG ESTERone (DEPO-PROVE RA) syringe 150 mg 2021-02 21:15: 00 01-20 20:41 :00 No [id number] 150mg [facility] NIFEdipine ER 30 mg tablet 2021-02 00:00: 00 01-20 00:00 :00 No [id number] 30mg Take 1 tablet by mouth in the morning. [facility] NIFEdipine ER tablet 30 mg 2021-02 0- 04:00: 00 Yes 30mg 30 mg, Oral, DAILY, First dose on 11/27/21 at 2300, Until Discontinu ed, Routine [facility] vitamin w/FA tablet 2021-02 0-10 00:00: 00 01-20 00:00 :00 No [id number] 1{tbl} Take 1 tablet by mouth in the morning. [facility] docusate 100 mg capsule 2021-02 0-10 00:00: 00 01-20 00:00 :00 No [id number] 200mg Take 2 capsules by mouth once daily as needed for Constipati on. [facility] ferrous sulfate 325 mg (65 mg iron) tablet 2021-02 0-10 00:00: 00 01-20 00:00 :00 No [id number] 325mg Take 1 tablet by mouth in the morning and 1 tablet in the evening. [facility] ibuprofen 600 mg tablet 2021-02 00:00: 00 01-20 00:00 :00 No [id number] 600mg Take 1 tablet by mouth every 6 (six) hours as needed (Pain). Take with food or milk. [facility] D5W 0.45% NaCl (1/2NS) IV infusion 1,000 mL 2021-02 19:38: 00 Yes 1000mL at 50 mL/hr, 1,000 mL, IV Infusion, CONTINUOUS , Starting on 11/27/21 at 1445, Until Discontinu ed, Routine [facility] HYDROcodone -acetaminop hen (NORCO 5) 5-325 mg tablet 1 tablet 2021-02 12:41: 25 Yes 1{tbl} 1 tablet, Oral, Q6HPRN, Starting on 11/27/21 at 0741, Until Discontinu ed, Routine, Pain (scale 7-10) [facility] ibuprofen (IBU) tablet 600 mg 2021-02 12:41: 25 Yes 600mg 600 mg, Oral, Q6HPRN, Starting on 11/27/21 at 0741, Until Discontinu ed, Routine, Pain (scale 4-6) [facility] acetaminoph en (TYLENOL) tablet 650 mg 2021-02 12:41: 25 Yes 650mg 650 mg, Oral, Q6HPRN, Starting on 11/27/21 at 0741, Until Discontinu ed, Routine, Pain (scale 1-3) [facility] diphenhydrA MINE (BENADRYL) tablet 25 mg 2021-02 12:41: 25 Yes 25mg 25 mg, Oral, Q6HPRN, Starting on 11/27/21 at 0741, Until Discontinu ed, Routine, Sleep, Itching [facility] ondansetron (ZOFRAN (PF)) injection 4 mg 2021-02 12:41: 25 Yes 4mg 4 mg, Slow IV Push, Q8HPRN, Starting on 11/27/21 at 0741, Until Discontinu ed, Routine, Nausea and Vomiting (N/V) [facility] simethicone (GAS RELIEF (SIMETHICON E)) chewable tablet 160 mg 2021-02 12:41: 25 Yes 160mg 160 mg, Oral, PC+HSPRN, Starting on 11/27/21 at 0741, Until Discontinu ed, Routine, Gas [facility] docusate (COLACE) capsule 200 mg 2021-02 12:41: 25 Yes 200mg 200 mg, Oral, QDAILYPRN, Starting on 11/27/21 at 0741, Until Discontinu ed, Routine, Constipati on [facility] magnesium hydroxide (MILK OF MAGNESIA) 400 mg/5 mL suspension 30 mL 2021-02 12:41: 25 Yes 30mL 30 mL, Oral, QDAILYPRN, Starting on 11/27/21 at 0741, Until Discontinu ed, Routine, Constipati on [facility] benzocaine- menthol (DERMOPLAST ) 20-0.5 % topical spray 2021-02 12:41: 25 Yes Topical, PRN, Starting on 11/27/21 at 0741, Until Discontinu ed, Routine, Perineum discomfort [facility] calcium gluconate 100 mg/mL (10%) injection 1,000 mg 2021-02 12:40: 21 Yes 1000mg 1,000 mg, Slow IV Push, PRN - SEE INSTRUCTIO NS, Starting on Sun11/27/21 at 0740, Until Discontinu ed, Routine, magnesium toxicity [facility] magnesium sulfate 4 mEq/mL (50 %) injection 32.48 mEq 2021-02 12:40: 21 Yes 4g 32.48 mEq (4 g), Slow IV Push, PRN - SEE INSTRUCTIO NS, Starting on Sun11/27/21 at 0740, Until Discontinu ed, Routine, For seizure activity (patient not on magnesium sulfate) [facility] magnesium sulfate 4 mEq/mL (50 %) injection 16.24 mEq 2021-02 12:40: 21 Yes 2g 16.24 mEq (2 g), Slow IV Push, PRN - SEE INSTRUCTIO NS, 2 doses, Starting on Sun11/27/21 at 0740, Until Discontinu ed, Routine, For seizure activity (patient already on magnesium sulfate) [facility] labetaloL (NORMODYNE) injection 20 mg 2021-02 [...] Hypertensi ve Emergency in [Order 4 End] [facility] oxytocin (PITOCIN) 30 units in NS 500 mL IV infusion 2021-02 02:10: 24 11-27 12:40 :54 No 2mU/min at 2-40 mL/hr, IV Infusion, TITRATE, Starting on 11/26/21 at 2110, Until [place] 11/27/21 at 0740, Routine [facility] penicillin g pot in dextrose 3 million [...] ion of therapy: 72 hours [facility] fentaNYL-ro pivacaine 2 mcg/mL-0.1 % (PF) in NS 200 mL epidural infusion RTU 2021-02 20:46: 00 11-27 13:52 :31 No Epidural, ONCE INTRA PROCEDURE, Starting on 11/26/21 at 1546, Until [place] 11/27/21 at 0852, Routine, Intra-op [facility] lidocaine-e pinephrine (XYLOCAINE W/EPINEPHRI NE) 1.5 %-1:200,000 injection 2021-02 20:43: 00 Yes Epidural, ONCE INTRA PROCEDURE, Starting on 11/26/21 at 1543, Until Discontinu ed, Routine, Intra-op [facility] penicillin g potassium 5 Million Units in NaCl 0.9% (NS) 100 mL MINI-BAG 2021-02 18:15: 00 11-26 19:13 :00 No 510 5 Million Units, IV Piggyback, ONCE, 1 dose, On 11/26/21 at 1315, Administer over 60 Minutes, 100 mL
Reas on for Anti-Infec tive: Empiric Non-Surgic al Prophylaxi s
Durat ion of therapy: 72 hours [facility] NaCl 0.9% (NS) IV infusion 1,000 mL 2021-02 008 18:00: 00 11-27 12:40 :54 No 1000mL at 50 mL/hr, IV Infusion, CONTINUOUS , Starting on 11/26/21 at 1300, Until 11/27/21 at 0740, Routine [facility] oxytocin (PITOCIN) 30 units in NS 500 mL IV infusion 2021-02 0 14:31: 25 11-27 02:11 :24 No 2mU/min at 2-40 mL/hr, IV Infusion, TITRATE, Starting on 11/26/21 at 0931, Until 11/26/21 at 2111, Routine [facility] FENTanyl PF (SUBLIMAZE (PF)) injection 100 mcg 2021-02 13:50: 58 11-27 12:40 :54 No 100ug 100 mcg, Slow IV Push, Q1HPRN, Starting on 11/26/21 at 0850, Until 11/27/21 at 0740, Routine, Pain (scale 4-6), Pain (scale 7-10) [facility] misoprostol (CYTOTEC) quarter-tab let 25 mcg 2021-02 13:45: 00 11-26 13:22 :00 No 25ug 25 mcg, Vaginal, ONCE, 1 dose, On 11/26/21 at 0845, Routine [facility] butalbital- acetaminoph en-caff (ESGIC) 50-325-40 mg tablet 1 tablet 2021-02 09:45: 00 11-26 08:57 :00 No 1{tbl} 1 tablet, Oral, ONCE NOW, 1 dose, On 11/26/21 at 0445, Routine [facility] magnesium sulfate in water for injection 20 gram/500 mL (4 %) IV infusion 2021-02 09:00: 00 Yes 2g/h 2 g/hr (50 mL/hr), IV Infusion, CONTINUOUS , Starting on 11/26/21 at 0400, Until Discontinu ed, Routine [facility] D5W 0.45% NaCl (1/2NS) IV infusion 1,000 mL 2021-02 09:00: 00 11-27 12:40 :54 No 1000mL at 75 mL/hr, 1,000 mL, IV Infusion, CONTINUOUS , Starting on 11/26/21 at 0400, Until 11/27/21 at 0740, Routine [facility] promethazin e 6.25 mg/5 mL solution 9-21 00:00: 00 11-28 00:00 :00 No [id number] 12.5mg Take 10 mL by mouth every 4 (four) hours as needed for Nausea and Vomiting (N/V). [facility] promethazin e 6.25 mg/5 mL solution -30 00:00: 00 11-09 00:00 :00 No [id number] 12.5mg Take 10 mL by mouth every 4 (four) hours as needed for Nausea and Vomiting (N/V). [facility] promethazin e 6.25 mg/5 mL solution 8-11 00:00: 00 10-18 00:00 :00 No [id number] 12.5mg Take 10 mL by mouth every 4 (four) hours as needed for Nausea and Vomiting (N/V). [facility] promethazin e 6.25 mg/5 mL solution 6-23 00:00: 00 09-15 00:00 :00 No [id number] 12.5mg Take 10 mL by mouth every 4 (four) hours as needed for Nausea and Vomiting (N/V). [facility] proMETHazin e 25 mg tablet 5-29 00:00: 00 09-15 00:00 :00 No [id number] 25mg Take 1 tablet by mouth every 6 (six) hours as needed for Nausea and Vomiting (N/V). [facility] promethazin e 6.25 mg/5 mL solution 5-06 00:00: 00 06-29 00:00 :00 No [id number] 12.5mg Take 10 mL by mouth every 4 (four) hours as needed for Nausea and Vomiting (N/V). [facility] vit 33-iron-fol ic-dha (SELECT-OB + DHA) 29 mg iron-1 mg -250 mg combo pack 5-05 00:00: 00 07-17 00:00 :00 No [id number] 1{packe t} Take 1 Packet by mouth daily. [facility] proMETHazin e 25 mg suppository 06-22 00:00: 00 09-15 00:00 :00 No [id number] 25mg Insert 1 Suppositor y into rectum every 4 (four) hours as needed for Nausea and Vomiting (N/V). [facility] Immunizations Ordered Immunization Name Filled Immunization [...] [facility] HEPATITIS A Unknown Completed [facility] Hep B, Adol or Pedi Dosage Unknown Completed [facility] HIB 4 Dose Schedule Unknown Completed [facility] Haemophilus influenzae type b vaccine, conjugate unspecified formulation Unknown Completed [facility] HPV Unknown Completed [facility] Meningococcal Polysaccharide (groups A, C, Y and W-135) conjugate vaccine (MCV4P) Unknown Completed [facility] MMR Unknown Completed [facility] IPV Unknown Completed [facility] Poliovirus, Live, Oral, Trivalent Unknown Completed [facility] HPV9 Unknown Completed [facility] HEPATITIS A Unknown Completed [facility] Haemophilus influenzae type b vaccine, conjugate unspecified formulation Unknown Completed [facility] HPV Unknown Completed [facility] Meningococcal Polysaccharide (groups A, C, Y and W-135) conjugate vaccine (MCV4P) Unknown Completed [facility] HPV9 Unknown Completed [facility] [...] Center Poliovirus, Live, Oral, Trivalent Unknown Completed [facility] TDAP Unknown Completed [facility] DTaP, Unspecified Formulation Unknown Completed [facility] HEPATITIS A Unknown Completed [facility] Hep B, Adol or Pedi Dosage Unknown Completed [facility] HIB 4 Dose Schedule Unknown Completed [facility] Haemophilus influenzae type b vaccine, conjugate unspecified formulation Unknown Completed [facility] HPV Unknown Completed [facility] Meningococcal Polysaccharide (groups A, C, Y and W-135) conjugate vaccine (MCV4P) Unknown Completed [facility] MMR Unknown Completed [facility] IPV Unknown Completed [facility] Poliovirus, Live, Oral, Trivalent Unknown Completed [facility] HPV9 Unknown Completed [facility] TDAP Unknown Completed [facility] DTaP, Unspecified Formulation Unknown Completed [facility] HEPATITIS A Unknown Completed [facility] Hep B, Adol or Pedi Dosage Unknown Completed [facility] HIB 4 Dose Schedule Unknown Completed [facility] Haemophilus influenzae type b vaccine, conjugate unspecified formulation Unknown Completed [facility] HPV Unknown Completed [facility] Meningococcal Polysaccharide (groups A, C, Y and W-135) conjugate vaccine (MCV4P) Unknown Completed [facility] MMR Unknown Completed [facility] IPV Unknown Completed [facility] Poliovirus, Live, Oral, Trivalent Unknown Completed [facility] HPV9 Unknown Completed [facility] TDAP Unknown Completed [facility] DTaP, Unspecified Formulation Unknown Completed [facility] HEPATITIS A Unknown Completed [facility] Hep B, Adol or Pedi Dosage Unknown Completed [facility] HIB 4 Dose Schedule Unknown Completed [facility] Haemophilus influenzae type b vaccine, conjugate unspecified formulation Unknown Completed [facility] HPV Unknown Completed [facility] Meningococcal Polysaccharide (groups A, C, Y and W-135) conjugate vaccine (MCV4P) Unknown Completed [facility] MMR Unknown Completed [facility] IPV Unknown Completed [facility] Poliovirus, Live, Oral, Trivalent Unknown Completed [facility] HPV9 Unknown Completed [facility] TDAP Unknown Completed [facility] DTaP, Unspecified Formulation Unknown Completed [facility] HEPATITIS A Unknown Completed [facility] Hep B, Adol or Pedi Dosage Unknown Completed [facility] HIB 4 Dose Schedule Unknown Completed [facility] Haemophilus influenzae type b vaccine, conjugate unspecified formulation Unknown Completed [facility] HPV Unknown Completed [facility] Meningococcal Polysaccharide (groups A, C, Y and W-135) conjugate vaccine (MCV4P) Unknown Completed [facility] MMR Unknown Completed [facility] IPV Unknown Completed [facility] Poliovirus, Live, Oral, Trivalent Unknown Completed [facility] HPV9 Unknown Completed [facility] HEPATITIS A Unknown Completed [facility] Haemophilus influenzae type b vaccine, conjugate unspecified formulation Unknown Completed [facility] HPV Unknown Completed [facility] Meningococcal Polysaccharide (groups A, C, Y and W-135) conjugate vaccine (MCV4P) Unknown Completed [facility] HPV9 Unknown Completed [facility] [...] Center Poliovirus, Live, Oral, Trivalent Unknown Completed [facility] TDAP Unknown Completed [facility] DTaP, Unspecified Formulation Unknown Completed [facility] HEPATITIS A Unknown Completed [facility] Hep B, Adol or Pedi Dosage Unknown Completed [facility] HIB 4 Dose Schedule Unknown Completed [facility] Haemophilus influenzae type b vaccine, conjugate unspecified formulation Unknown Completed [facility] HPV Unknown Completed [facility] Meningococcal Polysaccharide (groups A, C, Y and W-135) conjugate vaccine (MCV4P) Unknown Completed [facility] MMR Unknown Completed [facility] IPV Unknown Completed [facility] Poliovirus, Live, Oral, Trivalent Unknown Completed [facility] HPV9 Unknown Completed [facility] TDAP Unknown Completed [facility] DTaP, Unspecified Formulation Unknown Completed [facility] HEPATITIS A Unknown Completed [facility] Hep B, Adol or Pedi Dosage Unknown Completed [facility] HIB 4 Dose Schedule Unknown Completed [facility] Haemophilus influenzae type b vaccine, conjugate unspecified formulation Unknown Completed [facility] HPV Unknown Completed [facility] Meningococcal Polysaccharide (groups A, C, Y and W-135) conjugate vaccine (MCV4P) Unknown Completed [facility] MMR Unknown Completed [facility] IPV Unknown Completed [facility] Poliovirus, Live, Oral, Trivalent Unknown Completed [facility] HPV9 Unknown Completed [facility] TDAP Unknown Completed [facility] DTaP, Unspecified Formulation Unknown Completed [facility] HEPATITIS A Unknown Completed [facility] Hep B, Adol or Pedi Dosage Unknown Completed [facility] HIB 4 Dose Schedule Unknown Completed [facility] Haemophilus influenzae type b vaccine, conjugate unspecified formulation Unknown Completed [facility] HPV Unknown Completed [facility] Meningococcal Polysaccharide (groups A, C, Y and W-135) conjugate vaccine (MCV4P) Unknown Completed [facility] MMR Unknown Completed [facility] IPV Unknown Completed [facility] Poliovirus, Live, Oral, Trivalent Unknown Completed [facility] HPV9 Unknown Completed [facility] TDAP Unknown Completed [facility] DTaP, Unspecified Formulation Unknown Completed [facility] HEPATITIS A Unknown Completed [facility] Hep B, Adol or Pedi Dosage Unknown Completed [facility] HIB 4 Dose Schedule Unknown Completed [facility] Haemophilus influenzae type b vaccine, conjugate unspecified formulation Unknown Completed [facility] HPV Unknown Completed [facility] Meningococcal Polysaccharide (groups A, C, Y and W-135) conjugate vaccine (MCV4P) Unknown Completed [facility] MMR Unknown Completed [facility] IPV Unknown Completed [facility] Poliovirus, Live, Oral, Trivalent Unknown Completed [facility] HPV9 Unknown Completed [facility] HEPATITIS A Unknown Completed [facility] Haemophilus influenzae type b vaccine, conjugate unspecified formulation Unknown Completed [facility] HPV Unknown Completed [facility] Meningococcal Polysaccharide (groups A, C, Y and W-135) conjugate vaccine (MCV4P) Unknown Completed [facility] HPV9 Unknown Completed [facility] [...] Center Poliovirus, Live, Oral, Trivalent Unknown Completed [facility] TDAP Unknown Completed [facility] DTaP, Unspecified Formulation Unknown Completed [facility] HEPATITIS A Unknown Completed [facility] Hep B, Adol or Pedi Dosage Unknown Completed [facility] HIB 4 Dose Schedule Unknown Completed [facility] Haemophilus influenzae type b vaccine, conjugate unspecified formulation Unknown Completed [facility] HPV Unknown Completed [facility] Meningococcal Polysaccharide (groups A, C, Y and W-135) conjugate vaccine (MCV4P) Unknown Completed [facility] MMR Unknown Completed [facility] IPV Unknown Completed [facility] Poliovirus, Live, Oral, Trivalent Unknown Completed [facility] HPV9 Unknown Completed [facility] TDAP Unknown Completed [facility] DTaP, Unspecified Formulation Unknown Completed [facility] HEPATITIS A Unknown Completed [facility] Hep B, Adol or Pedi Dosage Unknown Completed [facility] HIB 4 Dose Schedule Unknown Completed [facility] Haemophilus influenzae type b vaccine, conjugate unspecified formulation Unknown Completed [facility] HPV Unknown Completed [facility] Meningococcal Polysaccharide (groups A, C, Y and W-135) conjugate vaccine (MCV4P) Unknown Completed [facility] MMR Unknown Completed [facility] IPV Unknown Completed [facility] Poliovirus, Live, Oral, Trivalent Unknown Completed [facility] HPV9 Unknown Completed [facility] TDAP Unknown Completed [facility] DTaP, Unspecified Formulation Unknown Completed [facility] HEPATITIS A Unknown Completed [facility] Hep B, Adol or Pedi Dosage Unknown Completed [facility] HIB 4 Dose Schedule Unknown Completed [facility] Haemophilus influenzae type b vaccine, conjugate unspecified formulation Unknown Completed [facility] HPV Unknown Completed [facility] Meningococcal Polysaccharide (groups A, C, Y and W-135) conjugate vaccine (MCV4P) Unknown Completed [facility] MMR Unknown Completed [facility] IPV Unknown Completed [facility] Poliovirus, Live, Oral, Trivalent Unknown Completed [facility] HPV9 Unknown Completed [facility] TDAP Unknown Completed [facility] DTaP, Unspecified Formulation Unknown Completed [facility] HEPATITIS A Unknown Completed [facility] Hep B, Adol or Pedi Dosage Unknown Completed [facility] HIB 4 Dose Schedule Unknown Completed [facility] Haemophilus influenzae type b vaccine, conjugate unspecified formulation Unknown Completed [facility] HPV Unknown Completed [facility] Meningococcal Polysaccharide (groups A, C, Y and W-135) conjugate vaccine (MCV4P) Unknown Completed [facility] MMR Unknown Completed [facility] IPV Unknown Completed [facility] Poliovirus, Live, Oral, Trivalent Unknown Completed [facility] HPV9 Unknown Completed [facility] HEPATITIS A Unknown Completed [facility] Haemophilus influenzae type b vaccine, conjugate unspecified formulation Unknown Completed [facility] HPV Unknown Completed [facility] Meningococcal Polysaccharide (groups A, C, Y and W-135) conjugate vaccine (MCV4P) Unknown Completed [facility] HPV9 Unknown Completed [facility] TDAP Unknown Completed [facility] DTaP, Unspecified Formulation Unknown Completed [facility] HEPATITIS A Unknown Completed [facility] Hep B, Adol or Pedi Dosage Unknown Completed [facility] HIB 4 Dose Schedule Unknown Completed [facility] Haemophilus influenzae type b vaccine, conjugate unspecified formulation Unknown Completed [facility] HPV Unknown Completed [facility] Meningococcal Polysaccharide (groups A, C, Y and W-135) conjugate vaccine (MCV4P) Unknown Completed [facility] MMR Unknown Completed [facility] IPV Unknown Completed [facility] Poliovirus, Live, Oral, Trivalent Unknown Completed [facility] HPV9 Unknown Completed [facility] TDAP Unknown Completed [facility] DTaP, Unspecified Formulation Unknown Completed [facility] HEPATITIS A Unknown Completed [facility] Hep B, Adol or Pedi Dosage Unknown Completed [facility] HIB 4 Dose Schedule Unknown Completed [facility] Haemophilus influenzae type b vaccine, conjugate unspecified formulation Unknown Completed [facility] HPV Unknown Completed [facility] Meningococcal Polysaccharide (groups A, C, Y and W-135) conjugate vaccine (MCV4P) Unknown Completed [facility] MMR Unknown Completed [facility] IPV Unknown Completed [facility] Poliovirus, Live, Oral, Trivalent Unknown Completed [facility] HPV9 Unknown Completed [facility] TDAP Unknown Completed [facility] DTaP, Unspecified Formulation Unknown Completed [facility] HEPATITIS A Unknown Completed [facility] Hep B, Adol or Pedi Dosage Unknown Completed [facility] HIB 4 Dose Schedule Unknown Completed [facility] Haemophilus influenzae type b vaccine, conjugate unspecified formulation Unknown Completed [facility] HPV Unknown Completed [facility] Meningococcal Polysaccharide (groups A, C, Y and W-135) conjugate vaccine (MCV4P) Unknown Completed [facility] MMR Unknown Completed [facility] IPV Unknown Completed [facility] Poliovirus, Live, Oral, Trivalent Unknown Completed [facility] HPV9 Unknown Completed [facility] TDAP Unknown Completed [facility] DTaP, Unspecified Formulation Unknown Completed [facility] HEPATITIS A Unknown Completed [facility] Hep B, Adol or Pedi Dosage Unknown Completed [facility] HIB 4 Dose Schedule Unknown Completed [facility] Haemophilus influenzae type b vaccine, conjugate unspecified formulation Unknown Completed [facility] HPV Unknown Completed [facility] Meningococcal Polysaccharide (groups A, C, Y and W-135) conjugate vaccine (MCV4P) Unknown Completed [facility] MMR Unknown Completed [facility] IPV Unknown Completed [facility] Poliovirus, Live, Oral, Trivalent Unknown Completed [facility] HPV9 Unknown Completed [facility] [...] Center Poliovirus, Live, Oral, Trivalent Unknown Completed [facility] TDAP Unknown Completed [facility] DTaP, Unspecified Formulation Unknown Completed [facility] HEPATITIS A [facility] Hep B, Adol or Pedi Dosage Unknown Completed [facility] HIB 4 Dose Schedule Unknown Completed [facility] Haemophilus influenzae type b vaccine, conjugate unspecified formulation Unknown Completed [facility] HPV Unknown Completed [facility] Meningococcal Polysaccharide (groups A, C, Y and W-135) conjugate vaccine (MCV4P) Unknown Completed [facility] MMR Unknown Completed [facility] IPV Unknown Completed [facility] Poliovirus, Live, Oral, Trivalent Unknown Completed [facility] HPV9 Unknown Completed [facility] TDAP Unknown Completed [facility] DTaP, Unspecified Formulation Unknown Completed [facility] HEPATITIS A Unknown Completed [facility] Hep B, Adol or Pedi Dosage Unknown Completed [facility] HIB 4 Dose Schedule Unknown Completed [facility] Haemophilus influenzae type b vaccine, conjugate unspecified formulation Unknown Completed [facility] HPV Unknown Completed [facility] Meningococcal Polysaccharide (groups A, C, Y and W-135) conjugate vaccine (MCV4P) Unknown Completed [facility] MMR Unknown Completed [facility] IPV Unknown Completed [facility] Poliovirus, Live, Oral, Trivalent Unknown Completed [facility] HPV9 Unknown Completed [facility] TDAP Unknown Completed [facility] DTaP, Unspecified Formulation Unknown Completed [facility] HEPATITIS A Unknown Completed [facility] Hep B, Adol or Pedi Dosage Unknown Completed [facility] HIB 4 Dose Schedule Unknown Completed [facility] Haemophilus influenzae type b vaccine, conjugate unspecified formulation Unknown Completed [facility] HPV Unknown Completed [facility] Meningococcal Polysaccharide (groups A, C, Y and W-135) conjugate vaccine (MCV4P) Unknown Completed [facility] MMR Unknown Completed [facility] IPV Unknown Completed [facility] Poliovirus, Live, Oral, Trivalent Unknown Completed [facility] HPV9 Unknown Completed [facility] TDAP Unknown Completed [facility] DTaP, Unspecified Formulation Unknown Completed [facility] HEPATITIS A Unknown Completed [facility] Hep B, Adol or Pedi Dosage Unknown Completed [facility] HIB 4 Dose Schedule Unknown Completed [facility] Haemophilus influenzae type b vaccine, conjugate unspecified formulation Unknown Completed [facility] HPV Unknown Completed [facility] Meningococcal Polysaccharide (groups A, C, Y and W-135) conjugate vaccine (MCV4P) Unknown Completed [facility] MMR Unknown Completed [facility] IPV Unknown Completed [facility] Poliovirus, Live, Oral, Trivalent Unknown Completed [facility] HPV9 Unknown Completed [facility] TDAP Unknown Completed [facility] DTaP, Unspecified Formulation Unknown Completed [facility] HEPATITIS A Unknown Completed [facility] Hep B, Adol or Pedi Dosage Unknown Completed [facility] HIB 4 Dose Schedule Unknown Completed [facility] Haemophilus influenzae type b vaccine, conjugate unspecified formulation Unknown Completed [facility] HPV Unknown Completed [facility] Meningococcal Polysaccharide (groups A, C, Y and W-135) conjugate vaccine (MCV4P) Unknown Completed [facility] MMR Unknown Completed [facility] IPV Unknown Completed [facility] Poliovirus, Live, Oral, Trivalent Unknown Completed [facility] HPV9 Unknown Completed [facility] TDAP Unknown Completed [facility] DTaP, Unspecified Formulation Unknown Completed [facility] HEPATITIS A Unknown Completed [facility] Hep B, Adol or Pedi Dosage Unknown Completed [facility] HIB 4 Dose Schedule Unknown Completed [facility] Haemophilus influenzae type b vaccine, conjugate unspecified formulation Unknown Completed [facility] HPV Unknown Completed [facility] Meningococcal Polysaccharide (groups A, C, Y and W-135) conjugate vaccine (MCV4P) Unknown Completed [facility] MMR Unknown Completed [facility] IPV Unknown Completed [facility] Poliovirus, Live, Oral, Trivalent Unknown Completed [facility] HPV9 Unknown Completed [facility] TDAP Unknown Completed [facility] DTaP, Unspecified Formulation Unknown Completed [facility] HEPATITIS A Unknown Completed [facility] Hep B, Adol or Pedi Dosage Unknown Completed [facility] HIB 4 Dose Schedule Unknown Completed [facility] Haemophilus influenzae type b vaccine, conjugate unspecified formulation Unknown Completed [facility] HPV Unknown Completed [facility] Meningococcal Polysaccharide (groups A, C, Y and W-135) conjugate vaccine (MCV4P) Unknown Completed [facility] MMR Unknown Completed [facility] IPV Unknown Completed [facility] Poliovirus, Live, Oral, Trivalent Unknown Completed [facility] HPV9 Unknown Completed [facility] TDAP Unknown Completed [facility] DTaP, Unspecified Formulation Unknown Completed [facility] HEPATITIS A Unknown Completed [facility] Hep B, Adol or Pedi Dosage Unknown Completed [facility] HIB 4 Dose Schedule Unknown Completed [facility] Haemophilus influenzae type b vaccine, conjugate unspecified formulation Unknown Completed [facility] HPV Unknown Completed [facility] Meningococcal Polysaccharide (groups A, C, Y and W-135) conjugate vaccine (MCV4P) Unknown Completed [facility] MMR Unknown Completed [facility] IPV Unknown Completed [facility] Poliovirus, Live, Oral, Trivalent Unknown Completed [facility] HPV9 Unknown Completed [facility] HEPATITIS A Unknown Completed [facility] Haemophilus influenzae type b vaccine, conjugate unspecified formulation Unknown Completed [facility] HPV Unknown Completed [facility] Meningococcal Polysaccharide (groups A, C, Y and W-135) conjugate vaccine (MCV4P) Unknown Completed [facility] HPV9 Unknown Completed [facility] [...] Center Poliovirus, Live, Oral, Trivalent Unknown Completed [facility] HEPATITIS A Unknown Completed [facility] Haemophilus influenzae type b vaccine, conjugate unspecified formulation Unknown Completed [facility] HPV Unknown Completed [facility] Meningococcal Polysaccharide (groups A, C, Y and W-135) conjugate vaccine (MCV4P) Unknown Completed [facility] HPV9 Unknown Completed [facility] [...] Center Poliovirus, Live, Oral, Trivalent Unknown Completed [facility] HEPATITIS A Unknown Completed [facility] Haemophilus influenzae type b vaccine, conjugate unspecified formulation Unknown Completed [facility] HPV Unknown Completed [facility] Meningococcal Polysaccharide (groups A, C, Y and W-135) conjugate vaccine (MCV4P) Unknown Completed [facility] HPV9 Unknown Completed [facility] [...] Center Poliovirus, Live, Oral, Trivalent Unknown Completed [facility] TDAP Unknown Completed [facility] DTaP, Unspecified Formulation Unknown Completed [facility] HEPATITIS A Unknown Completed [facility] Hep B, Adol or Pedi Dosage Unknown Completed [facility] HIB 4 Dose Schedule Unknown Completed [facility] Haemophilus influenzae type b vaccine, conjugate unspecified formulation Unknown Completed [facility] HPV Unknown Completed [facility] Meningococcal Polysaccharide (groups A, C, Y and W-135) conjugate vaccine (MCV4P) Unknown Completed [facility] MMR Unknown Completed [facility] IPV Unknown Completed [facility] Poliovirus, Live, Oral, Trivalent Unknown Completed [facility] HPV9 Unknown Completed [facility] TDAP Unknown Completed [facility] DTaP, Unspecified Formulation Unknown Completed [facility] HEPATITIS A Unknown Completed [facility] Hep B, Adol or Pedi Dosage Unknown Completed [facility] HIB 4 Dose Schedule Unknown Completed [facility] Haemophilus influenzae type b vaccine, conjugate unspecified formulation Unknown Completed [facility] HPV Unknown Completed [facility] Meningococcal Polysaccharide (groups A, C, Y and W-135) conjugate vaccine (MCV4P) Unknown Completed [facility] MMR Unknown Completed [facility] IPV Unknown Completed [facility] Poliovirus, Live, Oral, Trivalent Unknown Completed [facility] HPV9 Unknown Completed [facility] TDAP Unknown Completed [facility] DTaP, Unspecified Formulation Unknown Completed [facility] HEPATITIS A Unknown Completed [facility] Hep B, Adol or Pedi Dosage Unknown Completed [facility] HIB 4 Dose Schedule Unknown Completed [facility] Haemophilus influenzae type b vaccine, conjugate unspecified formulation Unknown Completed [facility] HPV Unknown Completed [facility] Meningococcal Polysaccharide (groups A, C, Y and W-135) conjugate vaccine (MCV4P) Unknown Completed [facility] MMR Unknown Completed [facility] IPV Unknown Completed [facility] Poliovirus, Live, Oral, Trivalent Unknown Completed [facility] HPV9 Unknown Completed [facility] TDAP Unknown Completed [facility] DTaP, Unspecified Formulation Unknown Completed [facility] HEPATITIS A Unknown Completed [facility] Hep B, Adol or Pedi Dosage Unknown Completed [facility] HIB 4 Dose Schedule Unknown Completed [facility] Haemophilus influenzae type b vaccine, conjugate unspecified formulation Unknown Completed [facility] HPV Unknown Completed [facility] Meningococcal Polysaccharide (groups A, C, Y and W-135) conjugate vaccine (MCV4P) Unknown Completed [facility] MMR Unknown Completed [facility] IPV Unknown Completed [facility] Poliovirus, Live, Oral, Trivalent Unknown Completed [facility] HPV9 Unknown Completed [facility] TDAP Unknown Completed [facility] DTaP, Unspecified Formulation Unknown Completed [facility] HEPATITIS A Unknown Completed [facility] Hep B, Adol or Pedi Dosage Unknown Completed [facility] HIB 4 Dose Schedule Unknown Completed [facility] Haemophilus influenzae type b vaccine, conjugate unspecified formulation Unknown Completed [facility] HPV Unknown Completed [facility] Meningococcal Polysaccharide (groups A, C, Y and W-135) conjugate vaccine (MCV4P) Unknown Completed [facility] MMR Unknown Completed [facility] IPV Unknown Completed [facility] Poliovirus, Live, Oral, Trivalent Unknown Completed [facility] HPV9 Unknown Completed [facility] Vital Signs Vital Name Observation Time Observation Value Comments S jeremiasce Systolic blood pressure 2024-04-16 17:18:00 110 mm[Hg] [facility] Diastolic blood pressure 2024-04-16 17:18:00 79 mm[Hg] [facility] Heart rate 2024-04-16 17:18:00 67 /min [facility] Body temperature 2024-04-16 17:18:00 36.17 Ava [facility] Respiratory rate 2024-04-16 17:18:00 18 /min [facility] Body height 2024-04-16 17:18:00 165.1 cm [facility] Body weight 2024-04-16 17:18:00 112.81 kg [facility] BMI 2024-04-16 17:18:00 41.39 kg/m2 [facility] Oxygen saturation in Arterial blood by Pulse oximetry 2024-04-16 17:18:00 100 /min [facility] Systolic blood pressure 2024-04-12 11:05:00 138 mm[Hg] [facility] Diastolic blood pressure 2024-04-12 11:05:00 90 mm[Hg] [facility] Heart rate 2024-04-12 11:05:00 92 /min [facility] Body temperature 2024-04-12 11:05:00 36.78 Ava [facility] Respiratory rate 2024-04-12 11:05:00 17 /min [facility] Oxygen saturation in Arterial blood by Pulse oximetry 2024-04-12 11:05:00 98 /min [facility] Body height 2024-04-12 10:30:00 165.1 cm [facility] Body weight 2024-04-12 10:30:00 108.863 kg [facility] BMI 2024-04-12 10:30:00 39.94 kg/m2 [facility] Systolic blood pressure 2024-03-16 08:17:00 152 mm[Hg] [facility] Diastolic blood pressure 2024-03-16 08:17:00 114 mm[Hg] [facility] Heart rate 2024-03-16 08:17:00 114 /min [facility] Body temperature 2024-03-16 08:17:00 36.78 Ava [facility] Respiratory rate 2024-03-16 08:17:00 20 /min [facility] Body height 2024-03-16 08:17:00 165.1 cm [facility] Body weight 2024-03-16 08:17:00 104.781 kg [facility] BMI 2024-03-16 08:17:00 38.44 kg/m2 [facility] Oxygen saturation in Arterial blood by Pulse oximetry 2024-03-16 08:17:00 100 /min [facility] Systolic blood pressure 2024-02-27 16:52:00 118 mm[Hg] [facility] Diastolic blood pressure 2024-02-27 16:52:00 82 mm[Hg] [facility] Heart rate 2024-02-27 16:52:00 113 /min [facility] Body temperature 2024-02-27 16:52:00 36.28 Ava [facility] Respiratory rate 2024-02-27 16:52:00 18 /min [facility] Body height 2024-02-27 16:52:00 166.4 cm [facility] Body weight 2024-02-27 16:52:00 117.164 kg [facility] BMI 2024-02-27 16:52:00 42.33 kg/m2 [facility] Oxygen saturation in Arterial blood by Pulse oximetry 2024-02-27 16:52:00 99 /min [facility] Systolic blood pressure 2024-02-22 08:00:00 172 mm[Hg] [facility] Diastolic blood pressure 2024-02-22 08:00:00 90 mm[Hg] [facility] Heart rate 2024-02-22 08:00:00 89 /min [facility] Body temperature 2024-02-22 08:00:00 36.89 Ava [facility] Respiratory rate 2024-02-22 08:00:00 20 /min [facility] Oxygen saturation in Arterial blood by Pulse oximetry 2024-02-22 08:00:00 100 /min [facility] Body height 2024-02-22 05:52:00 165.1 cm [facility] Body weight 2024-02-22 05:52:00 108.863 kg [facility] BMI 2024-02-22 05:52:00 39.94 kg/m2 [facility] Systolic blood pressure 2024-01-29 19:50:00 125 mm[Hg] [facility] Diastolic blood pressure 2024-01-29 19:50:00 85 mm[Hg] [facility] Heart rate 2024-01-29 19:50:00 103 /min [facility] Respiratory rate 2024-01-29 19:50:00 15 /min [facility] Oxygen saturation in Arterial blood by Pulse oximetry 2024-01-29 19:50:00 96 /min [facility] Body temperature 2024-01-29 18:30:00 36.33 Ava [facility] Body height 2024-01-21 21:15:00 165.1 cm [facility] Body weight 2024-01-21 21:15:00 122.471 kg [facility] BMI 2024-01-21 21:15:00 44.93 kg/m2 [facility] Systolic blood pressure 2024-01-29 18:35:00 127 mm[Hg] [facility] Diastolic blood pressure 2024-01-29 18:35:00 82 mm[Hg] [facility] Heart rate 2024-01-29 18:35:00 114 /min [facility] Respiratory rate 2024-01-29 18:35:00 18 /min [facility] Oxygen saturation in Arterial blood by Pulse oximetry 2024-01-29 18:35:00 100 /min [facility] Body temperature 2024-01-29 18:30:00 36.33 Ava [facility] Body height 2024-01-21 21:15:00 165.1 cm [facility] Body weight 2024-01-21 21:15:00 122.471 kg [facility] BMI 2024-01-21 21:15:00 44.93 kg/m2 [facility] Systolic blood pressure 2024-01-12 11:25:00 156 mm[Hg] [facility] Diastolic blood pressure 2024-01-12 11:25:00 110 mm[Hg] [facility] Respiratory rate 2024-01-12 11:25:00 12 /min [facility] Oxygen saturation in Arterial blood by Pulse oximetry 2024-01-12 11:25:00 97 /min [facility] Heart rate 2024-01-12 11:15:00 88 /min [facility] Body temperature 2024-01-12 09:59:00 36.5 Ava [facility] Body height 2024-01-12 09:59:00 165.1 cm [facility] Body weight 2024-01-12 09:59:00 122.471 kg [facility] BMI 2024-01-12 09:59:00 44.93 kg/m2 [facility] Systolic blood pressure 2024-01-07 17:05:00 136 mm[Hg] [facility] Diastolic blood pressure 2024-01-07 17:05:00 99 mm[Hg] [facility] Heart rate 2024-01-07 17:05:00 109 /min [facility] Oxygen saturation in Arterial blood by Pulse oximetry 2024-01-07 17:05:00 100 /min [facility] Body temperature 2024-01-07 17:02:00 36.39 Ava [facility] Respiratory rate 2024-01-07 17:02:00 18 /min [facility] Body height 2024-01-07 17:02:00 165.1 cm [facility] Body weight 2024-01-07 17:02:00 122.471 kg [facility] BMI 2024-01-07 17:02:00 44.93 kg/m2 [facility] Systolic blood pressure 2024-01-03 17:27:00 111 mm[Hg] [facility] Diastolic blood pressure 2024-01-03 17:27:00 77 mm[Hg] [facility] Heart rate 2024-01-03 17:27:00 99 /min [facility] Body temperature 2024-01-03 17:27:00 36.5 Ava [facility] Respiratory rate 2024-01-03 17:27:00 18 /min [facility] Body height 2024-01-03 17:27:00 165.1 cm [facility] Body weight 2024-01-03 17:27:00 120.203 kg [facility] BMI 2024-01-03 17:27:00 44.10 kg/m2 [facility] Oxygen saturation in Arterial blood by Pulse oximetry 2024-01-03 17:27:00 99 /min [facility] Systolic blood pressure 2023-12-24 17:35:00 118 mm[Hg] [facility] Diastolic blood pressure 2023-12-24 17:35:00 80 mm[Hg] [facility] Heart rate 2023-12-24 17:35:00 90 /min [facility] Respiratory rate 2023-12-24 17:35:00 15 /min [facility] Oxygen saturation in Arterial blood by Pulse oximetry 2023-12-24 17:35:00 96 /min [facility] Body temperature 2023-12-24 17:05:00 36 Ava [facility] Body height 2023-12-24 16:37:00 165.1 cm [facility] Body weight 2023-12-24 16:37:00 122.154 kg [facility] BMI 2023-12-24 16:37:00 44.81 kg/m2 [facility] Systolic blood pressure 2023-12-24 17:05:00 100 mm[Hg] [facility] Diastolic blood pressure 2023-12-24 17:05:00 56 mm[Hg] [facility] Heart rate 2023-12-24 17:05:00 89 /min [facility] Body temperature 2023-12-24 17:05:00 36 Ava [facility] Respiratory rate 2023-12-24 17:05:00 16 /min [facility] Oxygen saturation in Arterial blood by Pulse oximetry 2023-12-24 17:05:00 94 /min [facility] Body height 2023-12-24 16:37:00 165.1 cm [facility] 2023-12-24 16:37:00 122.154 kg [facility] BMI 2023-12-24 16:37:00 44.81 kg/m2 [facility] Systolic blood pressure 2023-11-27 19:10:00 111 mm[Hg] [facility] Diastolic blood pressure 2023-11-27 19:10:00 76 mm[Hg] [facility] Heart rate 2023-11-27 19:10:00 111 /min [facility] Respiratory rate 2023-11-27 19:10:00 18 /min [facility] Body height 2023-11-27 19:10:00 165.1 cm [facility] Body weight 2023-11-27 19:10:00 124.286 kg [facility] BMI 2023-11-27 19:10:00 45.60 kg/m2 [facility] Systolic blood pressure 2023-11-26 20:40:00 112 mm[Hg] [facility] Diastolic blood pressure 2023-11-26 20:40:00 74 mm[Hg] [facility] Heart rate 2023-11-26 20:40:00 103 /min [facility] Body temperature 2023-11-26 20:40:00 36.39 Ava [facility] Body height 2023-11-26 20:40:00 165.1 cm [facility] Body weight 2023-11-26 20:40:00 123.923 kg [facility] BMI 2023-11-26 20:40:00 45.46 kg/m2 [facility] Systolic blood pressure 2023-11-22 18:07:00 134 mm[Hg] [facility] Diastolic blood pressure 2023-11-22 18:07:00 89 mm[Hg] [facility] Heart rate 2023-11-22 18:07:00 126 /min [facility] Body temperature 2023-11-22 18:07:00 36.28 Ava [facility] Respiratory rate 2023-11-22 18:07:00 18 /min [facility] Body height 2023-11-22 18:07:00 165.1 cm [facility] Body weight 2023-11-22 18:07:00 125.102 kg [facility] BMI 2023-11-22 18:07:00 45.90 kg/m2 [facility] Oxygen saturation in Arterial blood by Pulse oximetry 2023-11-22 18:07:00 98 /min [facility] Systolic blood pressure 2023-11-19 14:38:00 127 mm[Hg] [facility] Diastolic blood pressure 2023-11-19 14:38:00 86 mm[Hg] [facility] Heart rate 2023-11-19 14:38:00 107 /min [facility] Body temperature 2023-11-19 14:38:00 36.33 Ava [facility] Respiratory rate 2023-11-19 14:38:00 18 /min [facility] Body height 2023-11-19 14:38:00 165.1 cm [facility] Body weight 2023-11-19 14:38:00 123.741 kg [facility] BMI 2023-11-19 14:38:00 45.40 kg/m2 [facility] Oxygen saturation in Arterial blood by Pulse oximetry 2023-11-19 14:38:00 98 /min [facility] Systolic blood pressure 2023-11-18 16:30:00 156 mm[Hg] [facility] Diastolic blood pressure 2023-11-18 16:30:00 113 mm[Hg] [facility] Heart rate 2023-11-18 16:30:00 88 /min [facility] Respiratory rate 2023-11-18 16:30:00 18 /min [facility] Oxygen saturation in Arterial blood by Pulse oximetry 2023-11-18 16:30:00 98 /min [facility] Body temperature 2023-11-18 10:28:00 36.72 Ava [facility] Body height 2023-11-18 10:27:00 165.1 cm [facility] Body weight 2023-11-18 10:27:00 122.471 kg [facility] BMI 2023-11-18 10:27:00 44.93 kg/m2 [facility] Systolic blood pressure 2023-11-08 20:00:00 123 mm[Hg] [facility] Diastolic blood pressure 2023-11-08 20:00:00 91 mm[Hg] [facility] Respiratory rate 2023-11-08 20:00:00 17 /min [facility] Heart rate 2023-11-08 19:00:00 75 /min [facility] Oxygen saturation in Arterial blood by Pulse oximetry 2023-11-08 19:00:00 100 /min [facility] Body temperature 2023-11-08 17:00:00 36.83 Vaa [facility] Body height 2023-11-08 15:16:00 165.1 cm [facility] Body weight 2023-11-08 15:16:00 122.471 kg [facility] BMI 2023-11-08 15:16:00 44.93 kg/m2 [facility] Systolic blood pressure 2023-08-06 19:07:00 135 mm[Hg] [facility] Diastolic blood pressure 2023-08-06 19:07:00 93 mm[Hg] [facility] Heart rate 2023-08-06 19:04:00 81 /min [facility] Body temperature 2023-08-06 19:04:00 36.11 Ava [facility] Respiratory rate 2023-08-06 19:04:00 18 /min [facility] Body height 2023-08-06 19:04:00 165.1 cm [facility] Body weight 2023-08-06 19:04:00 140.66 kg [facility] BMI 2023-08-06 19:04:00 51.60 kg/m2 [facility] Oxygen saturation in Arterial blood by Pulse oximetry 2023-08-06 19:04:00 100 /min [facility] Systolic blood pressure 2023-06-21 16:24:00 156 mm[Hg] [facility] Diastolic blood pressure 2023-06-21 16:24:00 98 mm[Hg] [facility] Heart rate 2023-06-21 16:24:00 94 /min [facility] Body temperature 2023-06-21 16:24:00 37.22 Ava [facility] Respiratory rate 2023-06-21 16:24:00 16 /min [facility] Body height 2023-06-21 16:24:00 165.1 cm [facility] Body weight 2023-06-21 16:24:00 127.007 kg [facility] BMI 2023-06-21 16:24:00 46.59 kg/m2 [facility] Oxygen saturation in Arterial blood by Pulse oximetry 2023-06-21 16:24:00 100 /min [facility] Systolic blood pressure 2023-01-24 20:58:00 132 mm[Hg] [facility] Diastolic blood pressure 2023-01-24 20:58:00 96 mm[Hg] [facility] Heart rate 2023-01-24 20:56:00 95 /min [facility] Body temperature 2023-01-24 20:56:00 36.67 Ava [facility] Respiratory rate 2023-01-24 20:56:00 18 /min [facility] Body height 2023-01-24 20:56:00 165.1 cm [facility] Body weight 2023-01-24 20:56:00 138.937 kg [facility] BMI 2023-01-24 20:56:00 50.97 kg/m2 [facility] Oxygen saturation in Arterial blood by Pulse oximetry 2023-01-24 20:56:00 100 /min [facility] Systolic blood pressure 2022-12-25 19:43:00 131 mm[Hg] [facility] Diastolic blood pressure 2022-12-25 19:43:00 86 mm[Hg] [facility] Heart rate 2022-12-25 19:43:00 72 /min [facility] Body temperature 2022-12-25 19:43:00 36.28 Ava [facility] Respiratory rate 2022-12-25 19:43:00 16 /min [facility] Body height 2022-12-25 19:43:00 165.1 cm [facility] Body weight 2022-12-25 19:43:00 138.347 kg [facility] BMI 2022-12-25 19:43:00 50.75 kg/m2 [facility] Oxygen saturation in Arterial blood by Pulse oximetry 2022-12-25 19:43:00 99 /min [facility] Systolic blood pressure 2022-01-20 20:03:00 135 mm[Hg] [facility] Diastolic blood pressure 2022-01-20 20:03:00 87 mm[Hg] [facility] Heart rate 2022-01-20 20:03:00 87 /min [facility] Body temperature 2022-01-20 20:03:00 36.56 Ava [facility] Respiratory rate 2022-01-20 20:03:00 17 /min [facility] Body height 2022-01-20 20:03:00 165.1 cm [facility] Body weight 2022-01-20 20:03:00 118.706 kg [facility] BMI 2022-01-20 20:03:00 43.55 kg/m2 [facility] Systolic blood pressure 2021-12-22 13:14:00 125 mm[Hg] [facility] Diastolic blood pressure 2021-12-22 13:14:00 86 mm[Hg] [facility] Heart rate 2021-12-22 13:14:00 96 /min [facility] Body temperature 2021-12-22 13:14:00 36.61 Ava [facility] Respiratory rate 2021-12-22 13:14:00 20 /min [facility] Body height 2021-12-22 13:14:00 165.1 cm [facility] Body weight 2021-12-22 13:14:00 108.41 kg [facility] BMI 2021-12-22 13:14:00 39.77 kg/m2 [facility] Systolic blood pressure 2021-11-29 12:00:00 142 mm[Hg] [facility] Diastolic blood pressure 2021-11-29 12:00:00 87 mm[Hg] [facility] Heart rate 2021-11-29 12:00:00 79 /min [facility] Body temperature 2021-11-29 12:00:00 36.72 Ava [facility] Respiratory rate 2021-11-29 12:00:00 18 /min [facility] Oxygen saturation in Arterial blood by Pulse oximetry 2021-11-29 12:00:00 100 /min [facility] Body height 2021-11-26 08:32:00 165.1 cm [facility] Body weight 2021-11-26 08:32:00 114.034 kg [facility] BMI 2021-11-26 08:32:00 41.84 kg/m2 [facility] Systolic blood pressure 2021-11-23 14:45:00 133 mm[Hg] [facility] Diastolic blood pressure 2021-11-23 14:45:00 102 mm[Hg] [facility] Heart rate 2021-11-23 14:42:00 77 /min [facility] Body temperature 2021-11-23 14:42:00 36.33 Ava [facility] Respiratory rate 2021-11-23 14:42:00 18 /min [facility] Body height 2021-11-23 14:42:00 165.1 cm [facility] Body weight 2021-11-23 14:42:00 114.17 kg [facility] BMI 2021-11-23 14:42:00 41.89 kg/m2 [facility] Systolic blood pressure 2021-11-11 15:03:00 120 mm[Hg] [facility] Diastolic blood pressure 2021-11-11 15:03:00 82 mm[Hg] [facility] Heart rate 2021-11-11 14:58:00 105 /min [facility] Body temperature 2021-11-11 14:57:00 36.33 Ava [facility] Respiratory rate 2021-11-11 14:57:00 18 /min [facility] Body height 2021-11-11 14:57:00 165.1 cm [facility] Body weight 2021-11-11 14:57:00 113.541 kg [facility] BMI 2021-11-11 14:57:00 41.65 kg/m2 [facility] Systolic blood pressure 2021-10-27 23:55:00 129 mm[Hg] [facility] Diastolic blood pressure 2021-10-27 23:55:00 76 mm[Hg] [facility] Heart rate 2021-10-27 23:55:00 88 /min [facility] Oxygen saturation in Arterial blood by Pulse oximetry 2021-10-27 23:55:00 96 /min [facility] Body temperature 2021-10-27 23:14:00 37 Ava [facility] Respiratory rate 2021-10-27 23:14:00 18 /min [facility] Body height 2021-10-27 22:26:00 165.1 cm [facility] Body weight 2021-10-27 22:26:00 111.131 kg [facility] BMI 2021-10-27 22:26:00 40.77 kg/m2 [facility] Systolic blood pressure 2021-10-27 18:08:00 140 mm[Hg] [facility] Diastolic blood pressure 2021-10-27 18:08:00 94 mm[Hg] [facility] Heart rate 2021-10-27 18:07:00 88 /min [facility] Body temperature 2021-10-27 18:07:00 35.61 Ava [facility] Respiratory rate 2021-10-27 18:07:00 18 /min [facility] Body weight 2021-10-27 18:07:00 110.224 kg [facility] BMI 2021-10-27 18:07:00 40.44 kg/m2 [facility] Systolic blood pressure 2024-03-16 08:17:00 152 mm[Hg] [facility] Diastolic blood pressure 2024-03-16 08:17:00 114 mm[Hg] [facility] Heart rate 2024-03-16 08:17:00 114 /min [facility] Body temperature 2024-03-16 08:17:00 36.78 Ava [facility] Respiratory rate 2024-03-16 08:17:00 20 /min [facility] Body height 2024-03-16 08:17:00 165.1 cm [facility] Body weight 2024-03-16 08:17:00 104.781 kg [facility] BMI 2024-03-16 08:17:00 38.44 kg/m2 [facility] Oxygen saturation in Arterial blood by Pulse oximetry 2024-03-16 08:17:00 100 /min [facility] Procedures Procedure Date / Time Performed Performing Clinician Source RAPID STREP SCREEN FOR GROUP A 2024-03-23 2 10:33:00 Singer [facility] INFLUENZA A/B RSV COVID NAAT 2024-04-12 10:33:00 Angus Dwyer [facility] [place] INJECTION AA&/STRD TRIGEM INAL NERVE EACH BRANCH 2024-03-16 08:31:23 Aster Lee [facility] [place] INJECTION AA&/STRD TRIGEM INAL NERVE EACH BRANCH 2024-03-16 08:31:23 Aster Lee [facility] URINE CULTURE 2024-02-22 08:11:00 Shorty Zambrano [facility] CT ABDOMEN PELVIS W CONTRAST 2024-02-22 07:32:12 Shorty Zambrano [facility] CT ABDOMEN PELVIS W CONTRAST 2024-02-22 07:32:12 Shorty Zambrano [facility] POCT TEST 2024-02-22 06:51:00 Shorty Zambrano [facility] POCT TEST 2024-02-22 06:51:00 Shorty Zambrano [facility] URINALYSIS 2024-02-22 06:48:00 Shorty Zambrano [facility] URINALYSIS 2024-02-22 06:48:00 Shorty Zambrano [facility] LIPASE 2024-02-22 06:08:00 Shorty Zambrano [facility] COMP. METABOLIC PANEL ([id number]) 2024-02-22 06:08:00 Shorty Zambrano [facility] CBC WITH DIFF 2024-02-22 06:08:00 Shorty Zambrano [facility] CBC WITH DIFF 2024-02-22 06:08:00 Shorty Zambrano [facility] COMP. METABOLIC PANEL ([id number]) 2024-02-22 06:08:00 Shorty Zambrano [facility] LIPASE 2024-02-22 06:08:00 Shorty Zambrano [facility] SURGICAL PATHOLOGY EXAM 2024-01-29 18:00:00 Eva Bryan [facility] INTUBATION 2024-01-29 16:39:00 Barbara Cartwright [facility] POCT TEST 2024-01-29 16:18:00 John [facility] POCT TEST 2024-01-29 16:18:00 Gianni Lopez [facility] POCT TEST 2024-01-29 16:18:00 Gianni Lopez [facility] [id number] - [place] LAPAROSCOPY SURG CHOLECYSTECTOMY 2024-01-29 16:15:00 Eva Bryan [facility] [id number] - [place] LAPAROSCOPY SURG CHOLECYSTECTOMY 2024-01-29 16:15:00 Eva Bryan [facility] POCT TEST 2024-01-12 10:32:00 Caro Bauer [facility] POCT TEST 2024-01-12 10:32:00 Caro Bauer [facility] LIPASE 2024-01-12 10:06:00 Caro Bauer [facility] COMP. METABOLIC PANEL ([id number]) 2024-01-12 10:06:00 Caro Bauer [facility] CBC WITH DIFF 2024-01-12 10:06:00 Caro Bauer [facility] CBC WITH DIFF 2024-01-12 10:06:00 Caro Bauer [facility] COMP. METABOLIC PANEL ([id number]) 2024-01-12 10:06:00 Caro Bauer [facility] LIPASE 2024-01-12 10:06:00 Caro Bauer [facility] ENDOSCOPY PROCEDURE DOCUMENTATION 2023-02 15:14:36 Doctor Unassigned, [place] [facility] EGD (ENDO) 2023-12-24 17:08:17 Jeimy [facility] EGD (ENDO) 2023-12-24 17:08:17 Jeimy [facility] SURGICAL PATHOLOGY EXAM 2023-12-24 16:57:00 [...] [facility] COMP. METABOLIC PANEL ([id number]) 2023-11-18 11:10:00 Caro Bauer [facility] CBC WITH DIFF 2023-11-18 11:10:00 Caro Bauer [facility] COMP. METABOLIC PANEL ([id number]) 2023-11-08 16:43:00 Tiff Isabel [facility] LIPASE 2023-11-08 16:01:00 Maame [facility] CBC WITH DIFF 2023-11-08 16:01:00 Maame [facility] URINALYSIS 2023-11-08 16:01:00 Maame [facility] POCT TEST 2023-11-08 16:01:00 Maame [facility] ZINC, SERUM 2023-08-06 19:42:00 Obi-Franklin [facility] VITAMIN B6, PLASMA 2023-08-06 19:42:00 Obi-Franklin [facility] FREE T4 2023-08-06 19:42:00 suzanne-Franklin, [facility] THYROID STIMULATING HORMONE 2023-08-06 19:42:00 Jeimy [facility] COMP. METABOLIC PANEL ([id number]) 2023-08-06 19:42:00 Obsuzanne-Franklin [facility] CBC WITH DIFF 2023-08-06 19:42:00 Obsuzanne-Franklin [facility] GLYCOSYLATED HEMOGLOBIN (A1C) 2023-08-06 19:42:00 Arun-Franklin [facility] VITAMIN D, 25-OH 2023-08-06 19:42:00 Obsuzanne-Franklin [facility] FREE T3 2023-08-06 19:42:00 Obsuzanne-Franklin [facility] POCT TEST 2023-06-21 16:30:00 Bonita Trivedi [facility] URINALYSIS 2023-06-21 16:29:00 Bonita Trivedi [facility] INSURANCE CORRESPONDENCE 2023-01-15 06:01:00 Doctor Unassigned, [place] [facility] INSURANCE CORRESPONDENCE 2023-01-06 06:01:00 Doctor Unassigned, [place] [facility] HCV ANTIBODY 2022-12-25 20:30:00 Obi-Franklin, Jess [facility] GARDASIL 9 (HPV 9V) VACCINE 2022-12-25 20:04:37 Obi-Jses Reid [facility] POCT TEST 2022-01-20 20:18:00 Jacinta Voss [facility] DME/SUPPLY JUSTIFICATION 2022-01-03 06:01:00 Doctor Unassigned, [place] [facility] CBC WITH DIFF [...] [facility] COMP. METABOLIC PANEL ([id number]) 2021-11-26 09:29:00 Adum, [facility]essa [facility] S AND TREATMENT 2021-11-26 08:08:59 Doctor Unassigned, [place] [facility] POCT URINALYSIS 2021-11-23 14:56:00 Rodrick Pete [facility] POCT URINALYSIS 2021-11-11 14:58:00 Rodrick Pete [facility] CONSENT/REFUSAL FOR DIAGNOSI S AND TREATMENT 2021-10-27 22:13:12 Doctor Unassigned, [place] [facility] POCT URINALYSIS 2021-10-27 18:21:00 Rodrick Pete [facility] LAB ONLY PAP SMEAR-LIQUID BASED 20:43:00 Rodrick Pete [facility] Encounters Start Date/Time End Date/Time Encounter Type Admission Type Attending Clinicians Care Facility Care Department Encounter ID Source 2024-06-14 00:00:00 2024-06-16 09:37:02 [facility] [id number] [facility] 2024-05-07 00:00:00 2024-06-07 18:15:52 Patient Secure Msg [facility] [id number] [facility] 2024-05-28 10:40:00 2024-05-28 10:40:00 Outpatient R OBI-FRANKLIN , JESS OBI-FRANKLIN , [facility] [id number] [facility] 2024-05-27 00:00:00 2024-05-27 23:29:36 Patient Secure Msg Obi-Franklin , [facility] PROFESSIO NAL BUILDING 1.2.840.114 350.1.13.10 4.2.7.2.686 [id number] 044 [id number] [facility] 2024-05-20 00:00:00 2024-05-22 09:07:10 Patient Secure Msg Obi-Jess Reid [facility] 1.2.840.114 350.1.13.10 4.2.7.2.686 [id number] 044 [id number] [facility] 2024-04-11 00:00:00 2024-05-17 18:21:45 Patient Secure Msg Obi-Franklin , [facility] BU[facility] 1.2.840.114 350.1.13.10 4.2.7.2.686 [id number] 044 [id number] [facility] 2024-03-18 00:00:00 2024-04-19 18:15:59 Patient Secure Msg Doctor Unassigned, La Liga Doctor Unassigned, La Liga [facility] 1..840.114 350.1.13.10 4.2.7.2.686 [id number] 044 [id number] [facility] 2024-04-16 11:00:00 2024-04-16 11:53:16 Outpatient R OBI-JESS REID OBI-FRANKLIN [facility] [id number] [facility] 2024-04-16 11:00:00 2024-04-16 11:53:16 Office Visit Obi-Franklin Jess [facility] 1.2.840.114 350.1.13.10 4.2.7.2.686 [id number] 044 [id number] [facility] 2024-04-12 04:34:00 2024-04-12 05:45:00 Emergency X ANGUS DWYER PHILLIP [facility] [id number] [facility] 2024-04-12 04:34:00 2024-04-12 05:45:00 Emergency Angus Dwyer AT [facility] 1.2.840.114 350.1.13.10 4.2.7.2.686 [id number] 084 [id number] [facility] 2024-04-07 00:00:00 2024-04-07 09:53:08 Telephone Jess Munson [facility]OW[facility] 1.2840.114 350.1.13.10 4.2.7.2.686 [id number] 044 [id number] [facility] 2023-12-26 00:00:00 2024-04-05 06:41:10 Orders Only Doctor Unassigned, La Liga Doctor Unassigned, La Liga [facility] 1.2840.114 350.1.13.10 4.2.7.2.686 [id number] [id number] [facility] 2024-03-30 00:00:00 2024-03-31 12:14:42 Patient Secure Msg Obsuzanne-Jess Reid 1.2.840.1 29867.1.1 3.104.2.7 .3.103577 .8 [id number] [facility] 2024-03-28 00:00:00 2024-03-30 12:51:45 Refill Obsuzanne-Angelo Reidma 1.2.840.1 75916.1.1 3.104.2.7 .3.170220 .8 [id number] [facility] 2024-03-28 00:00:00 2024-03-28 15:21:20 Refill Obsuzanne-Franklin Jess 1.2.840.1 54584.1.1 3.104.2.7 .3.001037 .8 [id number] [facility] 2024-03-27 13:20:00 2024-03-27 13:20:00 Outpatient R JESS MUNSON UZOMA [facility] [id number] [facility] 2024-03-26 00:00:00 2024-03-26 10:49:07 Telephone Jess Munson 1.2.840.1 06658.1.1 3.104.2.7 .3.912156 .8 [id number] [facility] 2024-03-18 00:00:00 2024-03-18 10:19:58 Patient Secure Msg Jess Munson 1.2.840.1 73212.1.1 3.104.2.7 .3.168572 .8 [id number] [facility] 2024-03-17 00:00:00 2024-03-18 08:09:54 Telephone Jess Munson 1.2.840.1 28330.1.1 3.104.2.7 .3.642416 .8 [id number] [facility] 2024-03-16 02:22:00 2024-03-16 02:40:00 Emergency X ASTER LEE PAMALA [facility] ERT [id number] [facility] 2024-03-16 02:22:00 2024-03-16 02:40:00 Emergency Jez Aster G 1.2.840.1 89472.1.1 3.104.2.7 .3.457115 .8 [id number] [facility] 2024-03-16 00:00:00 2024-03-16 00:00:00 Travel 1.2.840.1 38885.1.1 3.104.2.7 .3.627470 .8 1.2.840.114 350.1.13.10 4.2.7.3.698 084.8 [id number] [facility] 2024-02-11 00:00:00 2024-03-15 18:16:55 Patient Secure Msg Eva Bryan 1.2.840.1 56646.1.1 3.104.2.7 .3.556691 .8 [id number] [facility] 2024-03-10 00:00:00 2024-03-10 23:21:57 Refill Jess Munson 1.2.840.1 30901.1.1 3.104.2.7 .3.951208 .8 [id number] [facility] 2024-03-07 00:00:00 2024-03-08 10:28:33 Telephone Jess Munson 1.2.840.1 73895.1.1 3.104.2.7 .3.088254 .8 [id number] [facility] 2024-03-06 14:15:00 2024-03-06 14:15:00 Outpatient EVA DODGE [facility] [id number] [facility] 2024-03-05 00:00:00 2024-03-06 09:29:39 Telephone Jess Munson 1.2.840.1 57118.1.1 3.104.2.7 .3.171763 .8 [id number] [facility] 2024-03-04 00:00:00 2024-03-05 15:00:39 Patient Secure Msg Jess Munson 1.2.840.1 23380.1.1 3.104.2.7 .3.864744 .8 [id number] [facility] 2024-03-04 00:00:00 2024-03-04 14:51:37 Telephone Yadio ValerieJess 1.2.840.1 23632.1.1 3.104.2.7 .3.655489 .8 [id number] [facility] 2024-02-28 00:00:00 2024-03-03 16:59:48 Telephone Obi-Franklin , Jess 1.2.840.1 94978.1.1 3.104.2.7 .3.231180 .8 [id number] [facility] 2024-02-28 00:00:00 2024-02-28 13:24:25 Telephone Jess Munson 1.2.840.1 03670.1.1 3.104.2.7 .3.053278 .8 [id number] [facility] 2024-02-27 00:00:00 2024-02-27 15:55:52 Telephone Jess Munson 1.2.840.1 03381.1.1 3.104.2.7 .3.079074 .8 [id number] [facility] 2024-02-27 10:40:00 2024-02-27 11:10:59 Outpatient R JESS MUNSON UZOMA [facility] [id number] [facility] 2024-02-27 10:40:00 2024-02-27 11:10:59 Office Visit Jess Munson 1.2.840.1 60685.1.1 3.104.2.7 .3.628600 .8 [id number] [facility] 2024-02-26 00:00:00 2024-02-26 00:00:00 Travel 1.2.840.1 13248.1.1 3.104.2.7 .3.757657 .8 1.2.840.114 350.1.13.10 4.2.7.3.698 084.8 [id number] [facility] 2024-02-22 00:00:00 2024-02-22 13:47:53 Telephone Jess Munson 1.2.840.1 46929.1.1 3.104.2.7 .3.833595 .8 [id number] [facility] 2024-02-21 23:55:00 2024-02-22 02:59:00 Emergency X LIONEL [facility] [id number] [facility] 2024-02-21 23:55:00 2024-02-22 02:59:00 Emergency Shorty Zambrano Anna 1.2.840.1 36125.1.1 3.104.2.7 .3.255026 .8 [id number] [facility] 2024-02-21 00:00:00 2024-02-21 08:19:30 Telephone Jess Munson 1.2.840.1 29131.1.1 3.104.2.7 .3.222690 .8 [id number] [facility] 2024-02-21 00:00:00 2024-02-21 00:00:00 Travel 1.2.840.1 82545.1.1 3.104.2.7 .3.387340 .8 1.2.840.114 350.1.13.10 4.2.7.3.698 084.8 [id number] [facility] 2024-02-11 00:00:00 2024-02-13 09:13:13 Telephone Eva Bryan 1.2.840.1 29555.1.1 3.104.2.7 .3.814463 .8 [id number] [facility] 2024-02-11 00:00:00 2024-02-11 13:15:26 Patient Secure Msg Eva Bryan 1.2.840.1 59051.1.1 3.104.2.7 .3.665675 .8 [id number] [facility] 2024-02-11 00:00:00 2024-02-11 12:46:06 Refill Jess Munson 1.2.840.1 96041.1.1 3.104.2.7 .3.344186 .8 [id number] [facility] 2024-02-08 00:00:00 2024-02-08 14:40:57 Telephone Eva Bryan 1.2.840.1 33069.1.1 3.104.2.7 .3.489584 .8 [id number] [facility] 2024-02-07 00:00:00 2024-02-08 14:24:51 Patient Secure Msg Eva Bryan 1.2.840.1 62553.1.1 3.104.2.7 .3.025285 .8 [id number] [facility] 2024-01-30 00:00:00 2024-01-31 08:09:51 Telephone Eva Bryan 1.2.840.1 00322.1.1 3.104.2.7 .3.336766 .8 [id number] [facility] 2024-01-29 08:46:00 2024-01-29 14:10:00 Outpatient R EVA BRYAN [facility] [id number] [facility] 2024-01-29 08:46:00 2024-01-29 14:10:00 Hospital Encounter Eva Bryan 1.2.840.1 57414.1.1 3.104.2.7 .3.744220 .8 [id number] [facility] 2024-01-29 10:00:00 2024-01-29 12:35:00 Surgery Eva Bryan 1.2.840.1 48124.1.1 3.104.2.7 .3.070571 .8 [id number] [facility] 2024-01-29 10:30:00 2024-01-29 12:29:00 Anesthesia Event Radha Hurst Brian 1.2.840.1 33595.1.1 3.104.2.7 .3.454118 .8 [id number] [facility] 2024-01-25 00:00:00 2024-01-28 13:50:46 Refill Jess Munson 1.2.840.1 72801.1.1 3.104.2.7 .3.282985 .8 [id number] [facility] 2024-01-21 00:00:00 2024-01-21 00:00:00 Travel 1.2.840.1 00857.1.1 3.104.2.7 .3.060075 .8 1.2.840.114 350.1.13.10 4.2.7.3.698 084.8 [id number] [facility] 2024-01-12 03:54:00 2024-01-12 05:48:00 Emergency X CARO BAUER WAKILI [facility] ERT [id number] [facility] 2024-01-12 03:54:00 2024-01-12 05:48:00 Emergency Caro Bauer S 1.2.840.1 92490.1.1 3.104.2.7 .3.741485 .8 [id number] [facility] 2024-01-12 00:00:00 2024-01-12 00:00:00 Travel 1.2.840.1 87982.1.1 3.104.2.7 .3.204088 .8 1.2.840.114 350.1.13.10 4.2.7.3.698 084.8 [id number] [facility] 2024-01-11 00:00:00 2024-01-11 12:50:05 Patient Secure Msg Jess Munson 1.2.840.1 62532.1.1 3.104.2.7 .3.698616 .8 [id number] [facility] 2024-01-10 00:00:00 2024-01-11 05:46:35 Patient Secure Jess Art 1.2.840.1 74390.1.1 3.104.2.7 .3.476874 .8 [id number] [facility] 2024-01-07 11:15:00 2024-01-07 12:06:32 Outpatient R EVA BRYAN [facility] [id number] [facility] 2024-01-07 11:15:00 2024-01-07 12:06:32 Office Visit Eva Bryan 1.2.840.1 36915.1.1 3.104.2.7 .3.831861 .8 [id number] [facility] 2024-01-07 00:00:00 2024-01-07 00:00:00 Scanned Documents Doctor Unassigned, La Liga 1.2.840.1 00009.1.1 3.104.2.7 .3.432386 .8 [id number] [facility] 2024-01-07 00:00:00 2024-01-07 00:00:00 Travel 1.2.840.1 29748.1.1 3.104.2.7 .3.462625 .8 1.2.840.114 350.1.13.10 4.2.7.3.698 084.8 [id number] [facility] 2023-11-30 00:00:00 2024-01-05 18:24:03 Patient Secure Jess Art [facility] 1.2.840.114 350.1.13.10 4.2.7.2.686 [id number] 044 [id number] [facility] 2024-01-05 00:00:00 2024-01-05 00:00:00 Travel 1.2.840.1 00828.1.1 3.104.2.7 .3.844263 .8 1.2.840.114 350.1.13.10 4.2.7.3.698 084.8 [id number] [facility] 2024-01-03 11:00:00 2024-01-03 11:41:02 [facility] [id number] [facility] 2024-01-03 11:00:00 2024-01-03 11:41:02 [facility] 1.2.840.114 350.1.13.10 4.2.7.2.686 [id number] 044 [id number] [facility] 2024-01-02 00:00:00 2024-01-02 08:01:22 [facility] BU[facility]ING 1.2.840.114 350.1.13.10 4.2.7.2.686 [id number] 044 [id number] [facility] 2023-12-25 00:00:00 2023-12-27 05:31:52 [facility] 1.2.840.114 350.1.13.10 4.2.7.2.686 [id number] 044 [id number] [facility] 2023-12-25 00:00:00 2023-12-25 12:23:25 Refill Yann Nayak [facility] ([facility]) 1.2.840.114 350.1.13.10 4.2.7.2.686 [id number] 071 [id number] [facility] 2023-12-24 00:00:00 2023-12-24 16:00:22 Patient Secure Yisel Manzanares [facility] ([facility]) 1.84.114 350.1.13.10 4.2.7.2.686 [id number] 071 [id number] [facility] 2023-12-24 09:50:00 2023-12-24 11:47:00 Outpatient R YISEL HART [facility] GIE [id number] [facility] 2023-12-24 09:50:00 2023-12-24 11:47:00 Hospital Encounter Yisel Hart [facility] 1.84.114 350.1.13.10 4.2.7.2.686 [id number] [id number] [facility] 2023-12-24 10:45:00 2023-12-24 11:15:00 Surgery Yisel Hart [facility] 1.84.114 350.1.13.10 4.2.7.2.686 [id number] 020 [id number] [facility] 2023-12-18 14:30:00 2023-12-18 14:30:00 Outpatient R KONRAD ORDOÑEZ OGECHUKWU [facility] [id number] [facility] 2023-12-18 13:00:00 2023-12-18 13:00:00 Outpatient R OBI-JESS REID OBJESS GRIMALDO [facility] [id number] [facility] 2023-12-17 00:00:00 2023-12-18 11:14:39 Telephone Jess Munson [facility] BUILDING 1.84.114 350.1.13.10 4.2.7.2.686 [id number] 044 [id number] [facility] 2023-12-12 08:40:00 2023-12-12 08:40:00 Outpatient R OBI-FRANKLIN , JESS OBI-FRANKLIN , JESS [facility] [id number] [facility] 2023-12-07 00:00:00 2023-12-10 08:32:14 Shefali Ordoñez Leonelmelissa [facility] PROFESSIO NAL BUILDING 1.2840.114 350.1.13.10 4.2.7.2.686 [id number] 044 [id number] [facility] 2023-11-30 00:00:00 2023-12-04 09:32:31 Patient Secure Tianna Marrero [facility] ([facility]) 1.20.114 350.1.13.10 4.2.7.2.686 [id number] 071 [id number] [facility] 2023-11-30 15:45:00 2023-11-30 15:45:00 Outpatient R ISAAC SHAY [facility] [id number] [facility] 2023-11-27 14:00:00 2023-11-27 14:37:01 Outpatient R VANESSA LEYVA VANESSA [facility] [id number] [facility] 2023-11-27 14:00:00 2023-11-27 14:37:01 Office Visit Vanessa Leyva [facility] 1.0.114 350.1.13.10 4.2.7.2.686 [id number] [facility] 2023-11-26 15:00:00 2023-11-26 15:30:00 Office Visit Jose De Jesus Medina [facility] 1.20.114 350.1.13.10 4.2.7.2.686 [id number] [facility] 2023-11-26 15:00:00 2023-11-26 15:00:00 Outpatient R JOSE DE JESUS MEDINA VIEN [facility] [id number] [facility] 2023-11-22 13:00:00 2023-11-22 13:30:00 Office Visit Tianna Mei [facility] ([facility]) 1.2.840.114 350.1.13.10 4.2.7.2.686 [id number] 071 [id number] [facility] 2023-11-22 13:00:00 2023-11-22 13:00:00 Outpatient R TIANNA MEI ASHLEY [facility] [id number] [facility] 2023-11-20 10:00:00 2023-11-20 10:00:00 Outpatient R [facility] [id number] [facility] 2023-11-19 10:30:00 2023-11-19 10:30:00 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 2, Adc Lab Angelo Munsonma 2, Adc Lab [facility] 1.2.840.114 350.1.13.10 4.2.7.2.686 [id number] [facility] 2023-11-19 09:40:00 2023-11-19 10:03:53 Outpatient R OBI-FRANKLINJESS Arceo OBI-FRANKLIN , [facility] [id number] [facility] 2023-11-19 09:40:00 2023-11-19 10:03:53 [facility] 1.2.840.114 350.1.13.10 4.2.7.2.686 [id number] 044 [id number] [facility] 2023-11-15 00:00:00 2023-11-18 18:57:29 Refill Obi-Franklin , [facility] 1.2.840.114 350.1.13.10 4.2.7.2.686 [id number] 044 [id number] [facility] 2023-11-16 00:00:00 2023-11-18 18:53:00 Refill Obi-Franklin , [facility] PROFESSIO NAL BUILDING 1.2840.114 350.1.13.10 4.2.7.2.686 [id number] 044 [id number] [facility] 2023-11-18 05:34:00 2023-11-18 13:08:00 Emergency KELLY CUEVAS [facility] E[facility] [id number] [facility] 2023-11-18 05:34:00 2023-11-18 13:08:00 Emergency Caro Bauer Robert [facility] AT [facility] 1.2840.114 350.1.13.10 4.2.7.2.686 [id number] 084 [id number] [facility] 2023-11-08 10:16:00 2023-11-08 16:16:00 Emergency La MAAMETIFF LOPEZ TIFF [facility] ERT [id number] [facility] 2023-11-08 10:16:00 2023-11-08 16:16:00 Emergency Tiff Isabel [facility] AT [facility] 1.2840.114 350.1.13.10 4.2.7.2.686 [id number] 084 [id number] [facility] 2023-10-16 00:00:00 2023-10-19 05:44:04 Refill Obi-Franklin , [facility] PROFESSIO NAL BUILDING 1.2840.114 350.1.13.10 4.2.7.2.686 [id number] 044 [id number] [facility] 2023-10-15 00:00:00 2023-10-16 10:48:03 Refill Obi-Franklin , [facility] PROFESSIO NAL BUILDING 1.2840.114 350.1.13.10 4.2.7.2.686 [id number] 044 [id number] [facility] 2023 09:40:00 2023 09:40:00 Outpatient R OBI-FRANKLIN , JESS OBI-FRANKLIN , [facility] [id number] [facility] 2023-10-01 00:00:00 2023-10-03 15:28:49 Refill Obi-Franklin [facility] PROFESSIO NAL BUILDING 1.2.840.114 350.1.13.10 4.2.7.2.686 [id number] 044 [id number] [facility] 2023-09-12 00:00:00 2023-09-13 13:09:32 Refill Obi-Franklin [facility] PROFESSIO NAL BUILDING 1.2.840.114 350.1.13.10 4.2.7.2.686 [id number] 044 [id number] [facility] 2023-09-05 10:40:00 2023-09-05 10:40:00 Outpatient R OBI-FRANKLIN , JESS OBI-FRANKLIN , [facility] [id number] [facility] 2023-08-13 14:40:00 2023-08-13 14:40:00 Outpatient R OBI-FRANKLIN , JESS OBI-FRANKLIN , [facility] [id number] [facility] 2023-08-06 14:30:00 2023-08-06 15:25:53 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 2, Adc Lab Obi-Franklin [facility] 1.2.840.114 350.1.13.10 4.2.7.2.686 [id number] [facility] 2023-08-06 14:30:00 2023-08-06 14:30:00 Outpatient R OBI-FRANKLIN , JESS OBI-FRANKLIN , [facility] [id number] [facility] 2023-08-06 13:40:00 2023-08-06 14:29:31 [facility] 1.2.840.114 350.1.13.10 4.2.7.2.686 [id number] 044 [id number] [facility] 2023-08-06 08:40:00 2023-08-06 08:40:00 Outpatient R OBI-FRANKLIN , JESS OBI-FRANKLIN , [facility] [id number] [facility] 2023-07-31 00:00:00 2023-08-01 12:29:54 Telephone Konrad Ordoñez [facility] 1.2.840.114 350.1.13.10 4.2.7.2.686 [id number] 044 [id number] [facility] 2023-07-31 00:00:00 2023-07-31 18:10:27 Refill Obi-Franklin [facility] BUILDING 1.2.840.114 350.1.13.10 4.2.7.2.686 [id number] 044 [id number] [facility] 2023-07-30 00:00:00 2023-07-31 09:10:12 Patient Secure Msg Obi-Franklin [facility] BUILDING 1.2.840.114 350.1.13.10 4.2.7.2.686 [id number] [id number] [facility] 2023-07-25 00:00:00 2023-07-25 09:15:22 Refill Obi-Franklin , [facility] BUILDING 1.2.840.114 350.1.13.10 4.2.7.2.686 [id number] [id number] [facility] 2023-05-29 00:00:00 2023-06-30 18:07:42 Patient Secure Msg [facility] 1.2.840.114 350.1.13.10 4.2.7.2.686 [id number] 044 [id number] [facility] 2023-06-21 11:31:00 2023-06-21 12:29:00 Emergency [facility] [id number] [facility] 2023-06-21 11:31:00 2023-06-21 12:29:00 Emergency Bonita Trivedi [facility] 1..840.114 350.1.13.10 4.2.7.2.686 [id number] 084 [id number] [facility] 2023-06-18 08:40:00 2023-06-18 08:40:00 Outpatient R OBI-FRANKLIN , JESS OBI-FRANKLIN , [facility] [id number] [facility] 2023-06-12 00:00:00 2023-06-12 00:00:00 Patient Secure Msg [facility] , [facility] 1.2.840.114 350.1.13.10 4.2.7.2.686 [id number] 044 [id number] [facility] 2023-06-06 13:00:00 2023-06-06 13:00:00 Outpatient R OBI-FRANKLIN , JESS OBI[facility]FRANKLIN , [facility] [id number] [facility] 2023-05-29 00:00:00 2023-05-29 00:00:00 Refill Obi-Franklin , [facility] 1.2.840.114 350.1.13.10 4.2.7.2.686 [id number] 044 [id number] [facility] 2023-04-25 15:00:00 2023-04-25 15:00:00 Outpatient R OBI-JESS REID OBI-FRANKLIN , [facility] [id number] [facility] 2023-04-23 00:00:00 2023-04-23 00:00:00 Refill Obsuzanne-Franklin [facility] 1.2.840.114 350.1.13.10 4.2.7.2.686 [id number] 044 [id number] [facility] 2023-04-11 00:00:00 2023-04-11 00:00:00 Refill Obi-Franklin [facility] 1.2.840.114 350.1.13.10 4.2.7.2.686 [id number] 044 [id number] [facility] 2023-04-05 00:00:00 2023-04-05 00:00:00 Telephone Yadiaids [facility] 1.2.840.114 350.1.13.10 4.2.7.2.686 [id number] 044 [id number] [facility] 2023-04-03 00:00:00 2023-04-03 00:00:00 Telephone Carlos Ibrahim [facility] 1.2.840.114 350.1.13.10 4.2.7.2.686 [id number] 044 [id number] [facility] 2023-04-03 00:00:00 2023-04-03 00:00:00 Patient Secure Msg Obi-Franklin , [facility] 1.2.840.114 350.1.13.10 4.2.7.2.686 [id number] 044 [id number] [facility] 2023-04-01 00:00:00 2023-04-01 00:00:00 [facility] 1.2.840.114 350.1.13.10 4.2.7.2.686 [id number] 044 [id number] [facility] 2023-03-02 00:00:00 2023-03-02 00:00:00 Refill Obi-Franklin , [facility] 1.2.840.114 350.1.13.10 4.2.7.2.686 [id number] 044 [id number] [facility] 2023-02-19 00:00:00 2023-02-19 00:00:00 Refill Obi-Franklin , [facility] 1.2.840.114 350.1.13.10 4.2.7.2.686 [id number] 044 [id number] [facility] 2023-01-26 00:00:00 2023-01-26 00:00:00 Patient Secure Msg Doctor Unassigned, [place] Liga [facility] 1.2.840.114 350.1.13.10 4.2.7.2.686 [id number] [id number] [facility] 2023-01-24 15:00:00 2023-01-24 15:25:03 Outpatient R [facility] [id number] [facility] 2023-01-24 15:00:00 2023-01-24 15:25:03 [facility] 1.2840.114 350.1.13.10 4.2.7.2.686 [id number] 044 [id number] [facility] 2023-01-16 00:00:00 2023-01-16 00:00:00 [facility] 1.2840.114 350.1.13.10 4.2.7.2.686 [id number] 044 [id number] [facility] 2023-01-15 00:00:00 2023-01-15 00:00:00 Orders Only Doctor Unassigned, [place] Liga [facility] 1.2.114 350.1.13.10 4.2.7.2.686 [id number] [facility] 2023-01-15 00:00:00 2023-01-15 00:00:00 Patient Secure Msg Doctor Unassigned, [place] Liga [facility] 1.20.114 350.1.13.10 4.2.7.2.686 [id number] 044 [id number] [facility] 2023-01-08 00:00:00 2023-01-08 00:00:00 [facility] 1.840.114 350.1.13.10 4.2.7.2.686 [id number] 044 [id number] [facility] 2023-01-06 00:00:00 2023-01-06 00:00:00 Orders Only Doctor Unassigned, [place] Liga [facility] 1.2840.114 350.1.13.10 4.2.7.2.686 [id number] [facility] 2023-01-05 00:00:00 2023-01-05 00:00:00 [facility] 1.2840.114 350.1.13.10 4.2.7.2.686 [id number] 044 [id number] [facility] 2023-01-03 00:00:00 2023-01-03 00:00:00 Telephone Jess Mun[facility] 1.2.840.114 350.1.13.10 4.2.7.2.686 [id number] 044 [id number] [facility] 2023-01-01 00:00:00 2023-01-01 00:00:00 Patient Secure Msg Doctor Unassigned, [place] Liga [facility] 1.2.840.114 350.1.13.10 4.2.7.2.686 [id number] 044 [id number] [facility] 2022-12-28 00:00:00 2022-12-28 00:00:00 Patient Secure Msg Jeimy [facility] 1.2.840.114 350.1.13.10 4.2.7.2.686 [id number] 044 [id number] [facility] 2022-12-26 00:00:00 2022-12-26 00:00:00 Telephone [facility] 1.2.840.114 350.1.13.10 4.2.7.2.686 [id number] 044 [id number] [facility] 2022-12-25 14:45:00 2022-12-25 15:00:00 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 2, [facility] Jeimy [facility] 1.2.840.114 350.1.13.10 4.2.7.2.686 [id number] [facility] 2022-12-25 14:00:00 2022-12-25 14:14:40 Outpatient R OBI-FRANKLIN , JESS OBI-FRANKLIN , [facility] [facility] [id number] [facility] 2022-12-25 14:00:00 2022-12-25 14:14:40 Office Visit ObiJess Dai [facility] 1..840.114 350.1.13.10 4.2.7.2.686 [id number] [facility] 2022-12-19 10:00:00 2022-12-19 10:00:00 Outpatient R OBI-FRANKLIN JESS OBI-FRANKLIN JESS [facility] [id number] [facility] 2022-07-19 15:30:00 2022-07-19 15:30:00 Outpatient R KAMILA MILAN [facility] [id number] [facility] 2022-04-14 10:00:00 2022-04-14 10:00:00 Outpatient R [facility] [id number] [facility] 2022-01-20 13:00:00 2022-01-20 14:43:14 Outpatient R JACINTA VOSS [facility] [id number] [facility] 2022-01-20 13:00:00 2022-01-20 14:43:14 Office Visit Provider, Dylan-Rmchp Meche Clayton Brenda A [facility] [employer]PUT[employer] TEACHER [facility] [place] 1..840.114 350.1.13.10 4.2.7.2.686 [id number] 107 [id number] [facility] 2022-01-16 10:45:00 2022-01-16 10:45:00 Outpatient R MECHE ROBERSON [facility] [id number] [facility] 2022-01-05 00:00:00 2022-01-05 00:00:00 Encounter 1.2.840.1 [id number] 3.104.2.7 [id number] 1.840.114 350.1.13.10 4.2.7.2.696 [id number] [facility] 2022-01-03 00:00:00 2022-01-03 00:00:00 Orders Only Doctor Unassigned, La Liga [facility] 1.0.114 350.1.13.10 4.2.7.2.686 [id number] [facility] 2021-12-29 00:00:00 2021-12-29 00:00:00 Patient Secure g Rodrick Pete [facility] BUSINESS COMPUTERS TEACHER [facility] & CHILD [facility] 1..114 350.1.13.10 4.2.7.2.686 [id number] 107 [id number] [facility] 2021-12-22 07:45:00 2021-12-22 08:42:11 Outpatient R JACINTA VOSS [facility] [id number] [facility] 2021-12-22 07:45:00 2021-12-22 08:42:11 Routine Visit Provider, JuliachJacinta Mathews [facility] BUSINESS [employer]PUT[employer] TEACHER [facility] & CHILD [facility] 1..114 350.1.13.10 4.2.7.2.686 [id number] 107 [id number] [facility] 2021-12-03 00:00:00 2021-12-03 00:00:00 Patient Secure Msg Doctor Unassigned, La Liga [facility] 1..114 350.1.13.10 4.2.7.2.686 [id number] [facility] 2021-11-30 00:00:00 2021-11-30 00:00:00 Patient Secure g Rodrick Pete [facility] BUSINESS COMPUT[employer] TEACHER [facility] & CHILD [facility] 1.2.840.114 350.1.13.10 4.2.7.2.686 [id number] 107 [id number] [facility] 2021-11-26 03:26:00 2021-11-29 10:05:00 Inpatient P VANESSA LEYVA [facility] [id number] [facility] 2021-11-26 03:26:00 2021-11-29 10:05:00 Hospital Encounter Vanessa Leyva [facility] 1.2.840.114 350.1.13.10 4.2.7.2.686 [id number] [facility] 2021-11-26 15:34:00 2021-11-27 08:48:00 Anesthesia Event Wilver Owens [facility] 1.2.840.114 350.1.13.10 4.2.7.2.686 [id number] [facility] 2021-11-26 10:17:37 2021-11-26 10:17:37 Anesthesia Event Wilver Owens [facility] 1.2.840.114 350.1.13.10 4.2.7.2.686 [id number] [facility] 2021-11-23 09:45:00 2021-11-23 10:25:58 Outpatient LOVE SANTA EMILY [facility] [id number] [facility] 2021-11-23 09:45:00 2021-11-23 10:25:58 Routine Visit Provider, Dylan-Rmchp Rodrick Norton Emily J. [facility] BUSINESS COMPUTERS TEACHER [facility] 1.2.840.114 350.1.13.10 4.2.7.2.686 [id number] 107 [id number] [facility] 2021-11-11 09:45:00 2021-11-11 10:12:23 Routine Visit Rodrick Pete [facility] BUSINESS COMPUT[employer] TE[facility]ER [facility] [place] 1.2.840.114 350.1.13.10 4.2.7.2.686 [id number] 107 [id number] [facility] 2021-11-11 09:45:00 2021-11-11 10:12:23 Outpatient R RODRICK PETE [facility] [id number] [facility] 2021-11-11 00:00:00 2021-11-11 00:00:00 Patient Secure Msg Pete, Rodrick Mosquera [facility] BUSINESS COMPUT[employer] TEACHER [facility] & CHILD [facility] 1.2.840.114 350.1.13.10 4.2.7.2.686 [id number] 107 [id number] [facility] 2021-11-09 00:00:00 2021-11-09 00:00:00 Telephone Rodrick Pete [facility] BUSINESS [employer]PUT[employer] TEACHER [facility] & CHILD [facility] 1.2840.114 350.1.13.10 4.2.7.2.686 [id number] 107 [id number] [facility] 2021-11-07 00:00:00 2021-11-07 00:00:00 Refill PeteRodrick [facility] BUSINESS COMPUTERS TEACHER [facility] & CHILD [facility] 1.2.840.114 350.1.13.10 4.2.7.2.686 [id number] 107 [id number] [facility] 2021-10-27 17:35:00 2021-10-27 19:05:00 Outpatient X BRENDA VELÁSQUEZ [facility] [id number] Krist[facility] 2021-10-27 17:35:00 2021-10-27 19:05:00 Emergency Brenda Velásquez K Paige [facility] 1.2.840.114 350.1.13.10 4.2.7.2.686 [id number] [facility] 2021-10-27 12:45:00 2021-10-27 13:34:39 Outpatient R YANCI RODRICK [facility] [id number] [facility] 2021-10-27 12:45:00 2021-10-27 13:34:39 Routine Visit Yanci Rodrick Mosquera [facility] BUSINESS COMPUT[employer] TEACHER [facility] & CHILD [facility] 1..840.114 350.1.13.10 4.2.7.2.686 [id number] 107 [id number] [facility] 2021-10-27 12:45:00 2021-10-27 12:45:00 Outpatient R SONIA PETECUAUHTEMOC [facility] [id number] [facility] 2021-10-27 00:00:00 2021-10-27 00:00:00 Orders Only Doctor Unassigned, La Liga [facility] 1.840.114 350.1.13.10 4.2.7.2.686 [id number] [facility] 2021-10-26 00:00:00 2021-10-26 00:00:00 Abstract Yusuf Petereno [facility] BUSINESS COMPUTERS TEACHER [facility] & CHILD [facility] 1..840.114 350.1.13.10 4.2.7.2.686 [id number] 107 [id number] [facility] 2021-10-21 09:45:00 2021-10-21 10:30:00 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 Ultrasound, Vinh Stone [facility] BUSINESS COMPUT[employer] TEACHER [facility] & CHILD [facility] 1.84.114 350.1.13.10 4.2.7.2.686 [id number] [facility] 2021-10-21 09:45:00 2021-10-21 09:45:00 Outpatient VINH JOY SANGEETA [facility] [id number] [facility] 2021-10-18 00:00:00 2021-10-18 00:00:00 Patient Secure Msg Doctor Unassigned, La Liga [facility] BUSINESS COMPUTERS TEACHER [facility] & CHILD [facility] 1.2.840.114 350.1.13.10 4.2.7.2.686 [id number] 107 [id number] [facility] 2021-10-18 00:00:00 2021-10-18 00:00:00 Telephone Rodrick Pete [facility] BUSINESS COMPUTERS TEACHER [facility] & CHILD [facility] 1.2.840.114 350.1.13.10 4.2.7.2.686 [id number] 107 [id number] [facility] 2021-10-14 08:00:00 2021-10-14 08:34:31 Outpatient R RODRICK PETE [facility] [id number] [facility] 2021-10-14 08:00:00 2021-10-14 08:34:31 Routine Visit Rodrick Pete [facility] BUSINESS COMPUTERS TEACHER [facility] & CHILD [facility] 1..840.114 350.1.13.10 4.2.7.2.686 [id number] 107 [id number] [facility] 2021-09-29 10:45:00 2021-09-29 11:39:29 Outpatient R RODRICK PETE [facility] [id number] [facility] 2021-09-29 10:45:00 2021-09-29 11:39:29 Routine Visit Rodrick Pete [facility] BUSINESS COMPUTERS TEACHER [facility] & CHILD [facility] 1.2.840.114 350.1.13.10 4.2.7.2.686 [id number] 107 [id number] [facility] 2021-09-29 10:45:00 2021-09-29 10:45:00 Outpatient R RODRICK PETE [facility] [id number] [facility] 2021-09-16 00:00:00 2021-09-16 00:00:00 Patient Secure Msg Doctor Unassigned, La Liga [facility] 1..114 350.1.13.10 4.2.7.2.686 [id number] [facility] 2021-09-16 00:00:00 2021-09-16 00:00:00 Telephone Rodrick Pete [facility] BUSINESS COMPUTERS TEACHER [facility] & CHILD [facility] 1.840.114 350.1.13.10 4.2.7.2.686 [id number] 107 [id number] [facility] 2021-09-16 00:00:00 2021-09-16 00:00:00 Telephone Rodrick Pete [facility] BUSINESS COMPUTERS TEACHER [facility] & CHILD [facility] 1..114 350.1.13.10 4.2.7.2.686 [id number] 107 [id number] [facility] 2021-09-15 10:45:00 2021-09-15 11:53:13 Outpatient R RODRICK PETE [facility] [id number] [facility] 2021-09-15 10:45:00 2021-09-15 11:53:13 Routine Visit Rodrick Pete [facility] BUSINESS COMPUTERS TEACHER [facility] & CHILD [facility] 1.0.114 350.1.13.10 4.2.7.2.686 [id number] 107 [id number] [facility] 2021-09-13 00:00:00 2021-09-13 00:00:00 Refill Rodrick Pete [facility] BUSINESS COMPUTERS TEACHER [facility] & CHILD [facility] 1..114 350.1.13.10 4.2.7.2.686 [id number] 107 [id number] [facility] 2021-08-23 08:45:00 2021-08-23 22:46:00 Outpatient X BRENDA VELÁSQUEZ [facility] [id number] [facility] 2021-08-23 08:45:00 2021-08-23 22:46:00 Emergency Juan, Brenda Avery [facility] 1.2.840.114 350.1.13.10 4.2.7.2.686 [id number] [facility] 2021-08-18 10:30:00 2021-08-18 10:44:10 Outpatient R RODRICK PETE [facility] [id number] [facility] 2021-08-18 10:30:00 2021-08-18 10:44:10 Routine Visit Rodrick Pete [facility] BUSINESS COMPUTERS TEACHER [facility] & CHILD [facility] 1.2.840.114 350.1.13.10 4.2.7.2.686 [id number] 107 [id number] [facility] 2021-08-11 00:00:00 2021-08-11 00:00:00 Patient Secure Msg Rodrick Pete [facility] BUSINESS COMPUTERS TEACHER [facility] CHILD [facility] 1.2.840.114 350.1.13.10 4.2.7.2.686 [id number] 107 [id number] [facility] 2021-08-11 00:00:00 2021-08-11 00:00:00 Refill Rodrick Pete [facility] BUSINESS COMPUTERS TEACHER [facility] & CHILD [facility] 1.2.840.114 350.1.13.10 4.2.7.2.686 [id number] 107 [id number] [facility] 2021-08-11 00:00:00 2021-08-11 00:00:00 Refill Rodrick Pete [facility] BUSINESS COMPUTERS TEACHER [facility] & CHILD [facility] 1.2.840.114 350.1.13.10 4.2.7.2.686 [id number] 107 [id number] [facility] 2021-08-11 00:00:00 2021-08-11 00:00:00 Refill Rodrick Pete [facility] BUSINESS COMPUTERS TEACHER [facility] CHILD [facility] 1.2840.114 350.1.13.10 4.2.7.2.686 [id number] 107 [id number] [facility] 2021-08-02 00:00:00 2021-08-02 00:00:00 Abstract Rodrick Pete [facility] BUSINESS COMPUTERS TEACHER [facility] CHILD [facility] 1.2.840.114 350.1.13.10 4.2.7.2.686 [id number] 107 [id number] [facility] 2021-08-01 00:00:00 2021-08-01 00:00:00 Patient Secure Msg Doctor Unassigned, La Liga [facility] BUSINESS COMPUTERS TEACHER [facility] CHILD [facility] 1.2840.114 350.1.13.10 4.2.7.2.686 [id number] 107 [id number] [facility] 2021-07-29 09:30:00 2021-07-29 10:45:00 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 Ultrasound, GiovannaMfm Rodrick Pete Antonio F [facility] 1.0.114 350.1.13.10 4.2.7.2.686 [id number] [facility] 2021-07-29 09:30:00 2021-07-29 09:30:00 Outpatient P [facility] [id number] [facility] 2021-07-29 09:30:00 2021-07-29 09:30:00 Outpatient P MADDIE ROMEO [facility] [id number] [facility] 2021-07-29 08:00:00 2021-07-29 08:36:27 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 Lab, Dylan-Rmchp Rodrick Pete [facility] BUSINESS COMPUTERS TEACHER [facility] 1.2840.114 350.1.13.10 4.2.7.2.686 [id number] 107 [id number] [facility] 2021-07-23 00:00:00 2021-07-23 00:00:00 Patient Secure Msg Doctor Unassigned, La Liga [facility] 1.840.114 350.1.13.10 4.2.7.2.686 [id number] [facility] 2021-07-21 09:00:00 2021-07-21 10:12:55 Outpatient RODRICK DENNIS [facility] [id number] [facility] 2021-07-21 09:00:00 2021-07-21 10:12:55 Routine Visit PeteRodrick [facility] BUSINESS COMPUTERS TEACHER [facility] [place] 1.840.114 350.1.13.10 4.2.7.2.686 [id number] 107 [id number] [facility] 2021-07-21 09:00:00 2021-07-21 10:12:55 [facility] [id number] [facility] 2021-07-21 09:00:00 2021-07-21 09:00:00 Outpatient RODRICK DENNIS [facility] [id number] [facility] 2021-07-21 09:00:00 2021-07-21 09:00:00 Outpatient SONIA DENNISLIMAGloria [facility] [id number] [facility] 2021-07-17 02:36:00 2021-07-17 06:54:00 Emergency X CARO BAUER [facility] [id number] [facility] 2021-07-17 02:36:00 2021-07-17 06:54:00 Emergency Caro Bauer [facility] 1.840.114 350.1.13.10 4.2.7.2.686 [id number] [facility] 2021-07-12 00:00:00 2021-07-12 00:00:00 Telephone Rodrick Pete [facility] BUSINESS COMPUTERS TEACHER [facility] & CHILD [facility] 1.2.840.114 350.1.13.10 4.2.7.2.686 [id number] 107 [id number] [facility] 2021-07-06 00:00:00 2021-07-06 00:00:00 Telephone Rodrick Pete [facility] BUSINESS COMPUTERS TEACHER [facility] & CHILD [facility] 1.2.840.114 350.1.13.10 4.2.7.2.686 [id number] 107 [id number] [facility] 2021-06-28 01:26:00 2021-06-29 10:10:00 Outpatient X BRENDA VELÁSQUEZ [facility] [id number] [facility] 2021-06-28 01:26:00 2021-06-29 10:10:00 Emergency Alayna Bear S Brenda Velásquez [facility] 1.2.840.114 350.1.13.10 4.2.7.2.686 [id number] [facility] 2021-06-27 20:49:00 2021-06-27 20:59:00 Emergency X [facility] [id number] [facility] 2021-06-27 20:49:00 2021-06-27 20:59:00 Emergency [facility] 1.2.840.114 350.1.13.10 4.2.7.2.686 [id number] [facility] 2021-06-24 00:00:00 2021-06-24 00:00:00 Patient Secure Msg Rodrick Pete [facility] BUSINESS COMPUTERS TEACHER [facility] & CHILD [facility] 1.2.840.114 350.1.13.10 4.2.7.2.686 [id number] 107 [id number] [facility] 2021-06-24 00:00:00 2021-06-24 00:00:00 Telephone Rodrick Pete [facility] BUSINESS COMPUTERS TEACHER [facility] & CHILD [facility] 1.84.114 350.1.13.10 4.2.7.2.686 [id number] 107 [id number] [facility] 2021-06-23 14:00:00 2021-06-23 15:33:45 Outpatient R SONIA PETEDAMARILIMAGloria [facility] [id number] [facility] 2021-06-23 14:00:00 2021-06-23 15:33:45 Initial Visit Marie Petegloria Mosquera [facility] BUSINESS COMPUTERS TEACHER [facility] & CHILD [facility] 1.840.114 350.1.13.10 4.2.7.2.686 [id number] 107 [id number] [facility] 2021-06-23 14:00:00 2021-06-23 15:33:45 Outpatient R SONIA PETECUAUHTEMOC [facility] [id number] [facility] 2021-06-23 14:00:00 2021-06-23 15:33:45 Outpatient YUSUF DENNISLIMAGloria [facility] [id number] [facility] 2021-06-23 00:00:00 2021-06-23 00:00:00 Orders Only Doctor Unassigned, La Liga [facility] 1.84.114 350.1.13.10 4.2.7.2.686 [id number] [facility] 2021-06-22 08:04:00 2021-06-22 13:00:00 Emergency X ANGUS DWYER [facility] [id number] [facility] 2021-06-22 08:04:00 2021-06-22 13:00:00 Emergency Angus Dwyer [facility] 1.84.114 350.1.13.10 4.2.7.2.686 [id number] [facility] 2021-06-21 22:18:00 2021-06-21 23:26:00 Emergency Caro Bauer [facility] 1.2.840.114 350.1.13.10 4.2.7.2.686 [id number] [facility] 2021-06-21 22:18:00 2021-06-21 23:26:00 Emergency X CARO BAUER [facility] [id number] [facility] 2021-06-21 22:18:00 2021-06-21 23:26:00 Emergency X CARO BAUER [facility] [id number] [facility] 2021-06-11 12:44:00 2021-06-14 18:06:00 Inpatient X JOSE DE JESUS MEDINA [facility] [id number] [facility] 2021-06-11 12:44:00 2021-06-14 18:06:00 Hospital Encounter Abdullahi Gomez Christopher Adum, Jose De Jesus Vick [facility] 1.2.840.114 350.1.13.10 4.2.7.2.686 [id number] [facility] 2021-05-30 23:49:00 2021-06-03 14:41:00 Hospital Encounter Abdullahi Gomez Shannon M [facility] 1.2.840.114 350.1.13.10 4.2.7.2.686 [id number] [facility] 2021-05-30 23:49:00 2021-06-03 14:41:00 Inpatient X EDITH TERRY SHANNON [facility] [id number] [facility] Results Test Description Test Time [...] details: ?Outcome: ?Pain relieved ?Procedure completion: ?Tolerated [facility] CT Abdomen pelvis w contrast 08:24:04 Ordering [...] abdomen and pelvisdemonstrate no osseous destructive lesion. [facility] ([facility]1002[facility]2024-02-22 06:46:27* Test Item Value Reference Range Interpretation Comme nts NA (test code = 7501723696) 138 mmol/L 135-145 K (test code = 4137807892) 3.9 mmol/L 3.5-5.0 CL (test code = 2523255547) 104 mmol/L 98-108 CO2 TOTAL (test code = 5838586361) 22 mmol/L 23-31 L AGAP (test code = 9921542920) 12 2-16 BUN (test code = 4056677051) 11 mg/dL 7-23 GLUCOSE (test code = 0345776072) 113 mg/dL 70-110 H CREATININE (test code = 2160-0) 0.50 mg/dL 0.50-1.04 TOTAL BILI (test code = 8924524821) 0.9 mg/dL 0.1-1.1 CALCIUM (test code = 5661813006) 9.5 mg/dL 8.6-10.6 T PROTEIN (test code = 0398458430) 8.5 g/dL 6.3-8.2 H ALBUMIN (test code = 4717888712) 4.8 g/dL 3.5-5.0 ALK PHOS (test code = 8090522822) 81 U/L 34-122 ALTv (test code = 1742-6) 15 U/L 5-35 AST(SGOT) (test code = 6014804285) 21 U/L 13-40 eGFR (test code = 00218-2) 132.0 mL/min/1.73m2 CKD-EPI eGFR (2020). Assuming creatinine has been stable day-to-day for at least three months, the eGFR indicates Category G1 (>= 90 mL/min/1.73 m2) Lab Interpretation (test code = 65414-0) [facility]45:47* Test Item Value Reference Range Interpretation Comme nts LIPASE (test code = 2698753918) 24 U/L 0-220 Lab Interpretation (test cod e = 40598-8) Normal [facility] WITH [id number] 06:27:08* Test Item Value Reference Range Interpretation [...] 33.9 g/dL 31.6-35.1 RDW-SD (test code = 59833-6) 48.3 fL 39.0-49.9 RDW-CV (test code = 788-0) 12.9 % 12.0-15.5 PLT (test code = 777-3) 402 166-358 H MPV (test code = 71756-3) 9.3 fL 9.5-12.9 L NRBC/100 WBC (test code = 9320808447) 0.0 0.0-10.0 NRBC x10^3 (test code = 2035180918) See_Comment [Automated message] The system which generated this result transmitted reference range: 10*3/?L. The reference range was not used to interpret this result as normal/abnormal. GRAN MAT (NEUT) % (test code = 770-8) 89.3 % IMM GRAN % (test code = 1901194592) 0.40 % LYMPH % (test code = 736-9) 7.4 % MONO % (test code = 5905-5) 2.7 % EOS % (test code = 713-8) 0.1 % BASO % (test code = 706-2) 0.1 % GRAN MAT x10^3(ANC) (test code = 5736149718) 12.26 10*3/uL 1.88-7.09 H IMM GRAN x10^3 (test code = 3210848632) 0.06 10*3/uL 0.00-0.06 LYMPH x10^3 (test code = 731-0) 1.02 10*3/uL 1.32-3.29 L MONO x10^3 (test code = 742-7) 0.37 10*3/uL 0.33-0.92 EOS x10^3 (test code = 711-2) 0.03-0.39 L BASO x10^3 (test code = 704-7) 0.01-0.07 Lab Interpretation (test code = 10226-6) [facility] [id number] 17:53:54* Test Item Value Reference Range Interpretation Comme nts Case Report (test code = 0111623868) Surgical Pathology ?Case: [id number] ? Authorizing Provider: ?Eva Bryan MD ? ? ? Collected: ? 01/29/2024 1200 ?Ordering Location: ? ? [facility] ? ? ?Received: ?01/29/2024 1228 ? [facility] ?Pathologist: ? Brendon Dawson MD PhD ?Specimen: ? ?GALLBLADDER ? Final Diagnosis (test code = 6709090398) b8aciCVwLIYvn8drGKAoaM FuZzEwMzNcZnRuYmpcdWMx WWydnpZqKGpyfScyEOW8WN RwOX1nrRgzuPu3qVfmUCUt eqG6jXToTPlec7zfGML4q8 rehdnwTDQtCZgeUt4olDXl jShcMcWlETRsKUz4iK59UZ MtnU7tjXFyOTl1YDVioZUl veRkHiHpNZKsnRWywQA9ZI VsRS3dgrgrTUdiWPrrYSVk tjN2HMQbdMSbW2BxAHGnXL 9kaecnQMD4QLvnOORpZCM3 LrGoKNFnv6Idjwn8IoSkbD FyZFxwbGFpblxmczIwXHBh ciBBLiBHQUxMQkxBRERFUi drB5tLANZMHDYMOHHEM43X OiBccGFyICAgICAtIENIUk 3SPLDrK3aLDMDGJJGBZPPX GwRTXNQWURUUE1jFK1ZKTj 7ZT1KCT1czECNiXLWpFL3t Z6sCLBZRDZMQXKMFFQSfnF FyXHBhcmRccGFyfXtccnRm IKyoo8ZyW1GxMpHlJOveye NpXGRlZmxhbmcxMDMzXGZ0 bmJqXHVjMVxkZWZmMHtcZm 7jsREcoKijBhAxXCDlg3zw zuVLYRckGfKiM264CHRlAJ asl3pvq8MxHSYycXTjp8H4 PBEEvglwrGg1s1rgFhSzAm Y7iZDjLQvaA1doqtCqkRAs E1JcmKHoeRo5aCqgR39zd2 H7OdvcR5olMBOaJXQtL3Qn JU3bZVKyNqj1IIG5WKW8GI AgEHYtM5RqFD2yQVXvvUJy KHz9c4vmgEivAQLiGXY5g6 fbYCqydjW8PO8nno6iqUv4 u6qbrsVlMNDnMYVdrPQUAT TtI9XacBpgSs7hnAw1bKqm QxqjBSY5Qvr3IA1bbk57ol w3yAsqWVQuzwzkBbZ1ERha EGWlownzQGj0WTrlDBVxaC W7OBRalHEtA2MaIGSbQG8w vqk0LNE3LIxbUIQuAeO6ZD UgxHKoGKBvpFdqRMlyp012 CVN5KwPvEH4aI1Tex6W4jX 9maXRcZGVmdGFiNzIwXGZv eq4seXOdBPcxy7OwMWU7jl S5yYHtoRDlKXGiIV47Ynlm c9LaBihrDYZ0ZXGadbMdl6 Qxu6ngEvGicgBrD6cpJ8Jw ZHJoZWFkXHBnYnJkcmZvb3 Wxy3DwhPBmsOf6t8fjCPOi UBLixBdtl5miOPZ7BGMrY2 S1bBTnm1wiVFjlUYMkcIU0 msL3QSVuqYJtA6MygR5xNM XnTT6yiwi6c9fbLZG5PPuq OTQdFkN9lfE1PCCrfNEgUT OlwLveAZqdi991PSJ0EuKt QSCfc3NpF4EouFdyP16iqW xdU03gNYLszVyjrN2xwCyd cZ4zJzPtNqQrNNpzpMzimR FpblxmMVxmczIwXGxhbmcx GUXmHTizC1qrGsUgGOIpzC wuMRbkx4WoNVSpKVWxGahp czIwXHBhciBJIGhhdmUgcG Hlt03xZTlsuIWzSVMuHQti BNQecGuxv2HlI6ftIO3nJ7 NsaWRlcyBhbmQgYWdyZWUg c3c0jNQpgGmvf0AhfHYaQF 99lsSsOJAtXVM6YPTzv8jl YW08tjphUmPjpU30heBgoy UkCBKnj2dcU3qmmWDds7Oj g4FlrpTbLUley4ZfBV1lgS PqlgyikDQ9EIAmeHRsfdPq ddD1oApkPOVyeM6mvH0agL qvnW4nWqHgXyAoUXaaRW5m FYIiT8pgzFShGQTuXFJhM9 jwVeKqkQ9nwYeoIyrrmgH1 LFFwat98 Clinical Information (test code = 3301329781) Abdominal pain, epigastric [R10.13] Gross Description (test code = 4570436420) l9xtkSHsEEQqvQQJCWF9AI OrPS9zrBfjdLa4nFbbRCTn utO1oMLdXEfop7frSEI9e6 cowqKHQzjoSIQrRH6bWKca ONFqEV1fEvSoCGMnMfOfPV BhcGVydzEyMjQwXHBhcGVy tCV3SNCpQD8cpuxkHAgyEH okUJJuiqR6LLLjeYZzV4Tx NSJkJP4mwebbOYT1DWUQZs ksZj0gfSTmeAbtTqIfWgYv SUAoZNXkTSLsm9vnhiAJzz wyfYj3dV9SBEIzG9RkYY3Y h0bdXYEruZQoNQG2RWijs9 ppQFmgXEI0WHBwPEUqVMQs YD6QZiKlPAB1PAz6LtA0Pg N9BLo6GIIJQDWaLFQ3KGt9 GHB8HCc5FZSyON7vHUqcvI WiDJpiZagfDNydB829JZcf DARbV8JkA6BdXZrvPnAiZQ wuUVFoXPPfYEwvFNQcO9QV SKVnITC2CYO9BzHqZBy9DL e4SM0XXqSoMIBnSXZmTTR8 DPKlJDt7SEtsQA4QCVSlAr K0ELU5ScgvPFPyOFdrDHh1 IDIgXFxzcyAzIFxcZmwgXF ocI61ymPUrFHQQOukrrFNn blxmczIwIFNQRUNJTUVOIE IpeQAqA5gbPeTrAusnQTUq DQpccGFyZCANClxwbGFpbl xsdHJjaFxmczIyXGVwaWNO VFF0HV7rQLECBgagnNRkQH TgITtJcUXpoB0dreMBYBdi KVDkX8PcmoKuHLloHHRifw 6slRzoUXisMyUcFCEfw8x3 cBE6mQStkJT5eNTxlIojTF 6leSItQHZWWB52tNRyaiea ImdhbGxibGFkZGVyIiBhbm NwT70pl8otcPIuf1LaYCR5 VH6umNysdqIjceJcU1LvJ9 FsbGJsYWRkZXIgKDguMSB4 ZOKzYhF3HNSjLIEvhVaoz0 f7pYXjCWJie756pQQhKPWz b0UqBSV3jcMlW2ThDH6fFT Obna66Y2vgAHE6UU68jCJu NBkzy5YhOsFcJG4sFULzVK RqvLI3qPMrAMWkiCTsLOOx tN6etKLtsX5mOAXzUjxtD9 ysPQTAoCFzw1CuM5dlEC8o xUPjv0MoajDuXAVfRCAelp KslQYzzA7vbPFsATEex2Hu qGDzDiN4NX6avgWuDWMce6 HmpADhHsasKEC7zHCeFZAg mHPiTUwrxNsruhYlf6VdRS oojMJmPCLnqCT7lKneQGCc FnW0AJOzHCY9WWMxZpLjdA WcvvYxWN48KTsbCG30TQqz LV4qXCYbST1mRYTkMWDueG Dmm0HnrHQjrBJdGADbWXxy raEekhJ7kMool72da3DvKJ RlsPehcXGgfSTiYF92LAEv XEvhjRowMZ5lTDA7xkEaru NxSX5szM06AH3tAWzqxCio crYyiFTcv3lzhkzzWEMGqo KoEHLuMGRhpRJxPBg1qILa TU1aVJYbkHNuyPUfpdNqHl kgOW7cRLDrGMR3RTniQOH6 OHFqQ2DcPXTdAeTtnEB8gY tjmi5oTZLmlSLch1VkrUG6 rGJrVOEkF0Scn90zSDZyTR NvjACshJI0KHVgyY3nKYNq XHBhciANClxwYXIgDQpTYW uenYAxAVplJV3vUGPTZCmD C8OUDMBjlEUftCByvXlnFm zoyCJ5HHbyCkbywY0ptAUZ SRXGMqtNFehpioArKK3TQN 0JPsRKBS05MeKuRVUbaPA2 GIUROOdriSw0SBp4nKsfMi dowsAttWCnGyKQnQ0nDc5j RJ1nHUD1WTJ6MyD3e1lcnG GgBGfmAznpmMOenzQ2ANnV UPGFLKqXQqUuMN9pGVaJYr wUSjK0MgNgODBmoJF6GQJK DLghaLa9FWk7sOciMoxawa BhtPFvUeAMjK1nsYsyuW7u kYNoY8akRjMfFnssZMGwYZ usy2JdUQeezUymSKBmYeOq VXyxSCXdC81aj9OGo1Kax6 gspDaij2GffKLyJV61ADGf wEKbXHW2GT3zgZhcRLAjAF pccGFyZCANCn0= Disclaimer (test code = [id number]) m8wpmIKsZPOnz6xfTULrzD FuZzEwMzNcZnRuYmpcdWMx ROumcqUzQPeor2MoY8OaMg AwMFxhbnNpXGRlZmxhbmcx UCAtLLH2tiBuTESyONvdCM BjTLviMr6crSQipTikHmWv IAKrc5mklsOWKDajMlJzE5 86THBoOVzrd5jtl8MiWIJz xWEqf6I0LSIYbmeyzLa2aK kfV94bb6X3FhvsF8lzQIUm BOLdH6TaCW4zLDDqPvg9KP I2XQV1FPByOWPtO6GeYP7r MLTnyBYoPZu8h0jlkIlkRY EvKQJ4q2tyTMespdZuAU5v mm1wkOu8z4gdyzWkJCIjTJ OygMQAOGGjS9SbkEwcAk6d fEb6wIaoFpaeQYT7Xbl1MT 8ief69uwv4vUvoJGXvdydz FrH3EOgfHUAwesmfRRw9YU wrXCHigPU0KGAbnYCsC4Uc YUFpOR6ohsx0OCG0PRarDV JxNvG2ATDxpMKfSGCcuXhg DAvhu877HCI9QaAsMB4jR5 Jer5C9qN2rcIXfUVVswCRw AcJjPVBgra8dySEnABawx5 NoSBZ8tqP3bHUqbNGkHASf ZT03Gasxw5OiFfpmf1HnK4 7ymWT1YLydb5cfDL9hFsJ7 dmKbIBigi2zxkH2oYoT1PE flZP1eGQ5sDBHfiY5gaznm XHBnYnJkcmhlYWRccGdicm DnHy1ucPiiMQJ1HSgjH1db tA9zYgV8KSlwO1bgkF0sQH v4TAzxwTB8QKIemZ7bNF8r ihxes8mcQLwjQLkcVAEkvf Q4inO4NFNbjAHvM5UuvE6f YCPfNI2tljsvp9glMLZ9DS ygZKTvSZP4FqSwCWLmg1Mq syd6FzRoi2QrnARgSWgiQ1 3or570MNZducRwI7uxwSTz tltsyRMrooilLNdbrlF9CT ArdoPxv0HgWMIfMSR2HEhi RPtdaCGiQGCemHbtd1aeF4 RscGFyXHBsYWluXGYxXGZz MjBcbGFuZzEwMzNcaGljaF cxWUauTaKmNAAyOReeQ8tg NaCkO2BgQVTrEiVgeIEfX2 ggVGhpcyByZXBvcnQgbWF5 WSlsE1y4COLflzMgxPf5xh YfZiMnZGByDWQ6MZctyRIg PXFmi7OersavyWSkEs3qpY MwRLJsyK9eREHsDJJvUPsq PE0aiGf4JVCFfQFlxJLxCu QDIAJwJY91xqDlYDKTlwcc v3D9PTutDHTyy9ZmyKCkD1 wut2KiHEZdk07mGM2yd6N0 f9ivKMO7CC1vr0DmZFUsdL DfzUGyDPRfu5Yiyoypa3Xr MGKhirGte9NjUNZqdrGleP XlYDJpolLtix8qdjEjMWXq ONHxS9KrrjnnxIphlkVuNA Luis9grqPrNKQ6NGKBMMXe RPDtw9CbiB4kiOUHTWS5oK Ksea5npkRPeVLtTDBghz92 ENWkZD8zZ3xzLGQkPTDxwr OmpAGlo5BnYRRpxGI9wGAt CW8FGxZMe62vDWAiPEYMjy UvLIUjeCeytKO2ncD8eC4z IChGREEpLlx+IFRoZSBGRE VoLL1isoCxb9YdceNyaCiq CKBorLTph9EtsWTur1YmnS cwo3CviVQevTFbTP1rJNTu clxwYXIgVVRNQiBMYWJvcm N9r3MbFQUeHALhTOA0wAxc don1DLQtdV0oVIJsU7wpsh ugYKfwYRJde4BiiG3xhUOA mRKca1GmzWDwaOJNvDJhZQ 1dtlBmMUvGUFqRILT8otMk FZLli8QzYAglJ6wuY51asH indRw5uAR9RYE4cV2qGfi+ IFxwYXJccGFyIEFwcHJvcH RiXRLizByheyDvP5RcbyWs pR2nkYGtitDpLI9pXM0sJ5 Z8oREtNYDldmSam5gcPAne dmUgYmVlbiByZXZpZXdlZC Tcw0ExBEigCGQ9ZMmnggJd bmNsdWRpbmcgSCZFLCBTcG BizBAbXTL9PXenmqOiyhRx JW7ajL0fdNbbvS6sgXDynS R5gkxeMTYwTCJzdGumCOIp RS1pbCibiQ1gPvImYkVlEN yyVZ5fGOYlR4pgsWNzQDPg LDQxN2vyMtCsjT4mgAxlDN xjZjJcZnMyMFxwYXJccGFy XHBsYWluXGYxXGZzMjBcbG FuZzEwMzNcaGljaFxmMVxk WvNlZRUwHWysX2usVpQjY3 TvROBiWbYlrDDqH2wyNGym LFQ4SSYyUA2asDWhZH02rD Dvv3ueASbnaIjqjq7sQ65d yQJiSYlpbSarMBOnm19jc0 TkCYHzujQpnp6gYGAqmjS8 bW5zOAEowStxGMMwgICeOG Ute7EpURnoyFUukfJvWGrt KEXuXKQltRGoohW0njCptj XbreTtWJFgoJbqCEZib8Ya TRVvDPlfj6Byzl6tpNZdGS OettSIlCscoJJnsY7fD6Wf HHOcOQYwrv2wUGOutJ9jNP uyj1DwsimaOWWvJVPnRGNo ciNtxw5vVAWpuKFCGI9QYQ orgEQmi4JflzLzN2eKHCK5 NUQwNjYwMjgxKSBleGNlcH SqVHVsaf17QBKkgM8gjAmy UUTliJ2gmB8hhOwctW3hEz NwXjQtQIjnXH7kMGQcJ9zn kHBuMNZjUAHhJ2gnMhNrmN 9jaFxmMVxjZjJcZnMyMFxw YXJ9fQ== Embedded Images (test code = 3225049158) [facility] 16:39:00Barbara Cartwright CRNA ? ? 01/29/2024 11:42 AMIntubationDate/Time: 01/29/2024 10:39 AMUrgency: elective Airway not difficult General Information and Staff Patient location during procedure: ORPerformed: resident/MOTHER SUPERIOR Performed by: Barbara Cartwright CRNAAuthorized by: Radha [...] atraumatic, dentition and lips unchanged from pre-op. [facility] [id number] 16:19:00* Test Item Value Reference Range Interpretation Comme nts POCT PREG (test code = 1605) Negative On board controls acceptable with C Line (test code = 3574) Yes POCT PREG LOT # (test code = 3575) [id number] POCT PREG TEST DATE ( test code = 3576) 05/27/2024 [facility] [id number] 16:19:00* Test Item Value Reference Range Interpretation Comme nts POCT PREG (test code = 1605) Negative On board controls acceptable with C Line (test code = 3574) Yes POCT PREG LOT # (test code = 3575) [id number] POCT PREG TEST DATE ( test code = 3576) 05/27/2024 [facility] [id number] 10:32:00* Test Item Value Reference Range Interpretation Comme nts POCT PREG (test code = 1605) Negative On board controls acceptable with C Line (test code = 3574) Yes POCT PREG LOT # (test code = 3575) [id number] POCT PREG TEST DATE ( test code = 3576) 2024-11-23 Lab Interpretation (test cod e = 47606-1) Normal [facility] [id number] 15:14:36Ordered by an unspecified provider.[facility] Surgical Pathology Gshp7191-01-06 16:13:04* Test Item Value Reference Range Interpretation Comme nts Case Report (test code = 7680105938) Surgical Pathology ?Case: [id number] ? Authorizing Provider: ?Yisel Hart MD ?Collected: ? 12/24/2023 1057 ?Ordering Location: ? ? GI Endoscopy OR Department Received: ?12/24/2023 1148 ?Pathologist: ? Brendon Dawson MD PhD ?Specimen: ? ?STOMACH, 1. gastric biopsy ? Final Diagnosis (test code = 0897038121) e6zisAPyWSDlh9enQPXmxCMaM zEwMzNcZnRuYmpcdWMxIHtccn IbVSqaoBzaHLF7AENoGV2mrEh fdNz0tHvaSDCfjmL8pLBjNWbm d4nuOTL3g4sxnasaRSSmTSezH z5zgAStdNyoIiPzYMGvXCe1lM 95SYPcxH5dgSDjGPy3NSCscRC nisQfUrMxWILgiSHzjJE2FVRc HC0fzhjsVOslNSohCOPrgmY5A GWkfLZvV7MjDZFlNX4unguhZF G1OElhRSEqFAT2GeZeHXKri0Y yuhf3CkZkvRXzPEhlwVMtkmyp acFpCVYcakWFGoZOSK9EOCFQG XXKOB7MC0r5DMTdxjsmjEA8DZ YtRArIK3FEEYTlKZYDE6YUAQy IBUivXq4jVSDNNY3MS6vAN7IR OJQMQT7EPYmnQDJpLMISXpNWV 6WENtfMHDTSNfREWbIEH0JFPi DIHG3HLFJZQIGSDUGsYTAGKiU JRklFRFxwYXIgLSBOTyBILiBQ WUxPUkktTElLRSBPUkdBTklTT VMgSURFTlRJRklFRFxwYXJccG YaSGduNZV8t3lbcKPgYHLanUO kQjNnJSRhBZOdk1ejFTWooUJp ZzEwMzNcZnRuYmpcdWMxXGRlZ uYky9pht951gWDxw6whWGZfDt V6fWUaNBVpgCqzssf2fXqzYzN rUNGyj0wcslQqAcCzREDzUMJx CXNbpKTaK162FPVtPMnnd6uvv 9QzRAPpwPYrf3H0GUSZEKuuLu KmK691r7vea2zazuNmdUZ2NGA oUDS1WEycqnSgzjA6HLzmsBSf SvO9LRroovSeRHkjraOqlaBuE rx8ROAwM005VQT0zKckc8ygTF O3MVLyXENmRivxBe0nfNKjJ52 4OHUhIEHVXOSewGi0ORNzrdLm ujEcdQDXt914Y884i5geGKVhs vRfhKpIhmmhu4fnH860EXBrgZ XehrQpNmJbDDFmdIPdnAL9IYB mNE8rsjhvMGmqTOlrUTKuopF8 BTPbiIYeM8SyOSMfBS5yywylN ZV9YKagADKlMZT5KmPwMXKov9 Gckcs5HhZxqx8oml08JKN6s1E svEkeFPW4DKT4DeIhXj1orDGt SHWiDG9jVbGoyIXiNOHeiz75h EykCCwwviQktY8oKxJbVZHxmF VbLHUiUH5efSYwESDjoL5tvtr jXHBnYnJkcmhlYWRccGdicmRy Ze4ivGmuOCI8VBkeH5jvqY5xZ eQ8LGdkI6ydvG0oLEz1OLhteU O0MVNpwG9aWH1tmqsfc2glHGg hWMtjPDVqcvJ0ddD7ZXCdaCEp B8TpwJ2tVDIzUJ4ixqjzi5guV OO6ZBryXDJjEZN7SdSiYJQli5 Xlnrk2DnXaf3IlyXBpABguV80 jz563KTAaiwHrK2wfnETxfcfn bJGcrokaAThbjhA9YMDrAJMuE WluXGYxXGZzMjBcbGFuZzEwMz NcaGljaFxmMVxkYmNoXGYxXGx sJ6axBnEdJ3PtPNBaOeXttHRi XMumnAP3JOFeXRBgd12uwPf7P FOkfsyzm4XlIXIjcVBhpTQpfJ 4khrFaj6muGPKyQZIjTDGmJ5V pING3gDIrOSJwoHRfrHT8GW8s znKuZN5qJHQxXvdzueLmhICdj pYdOGYuNOmuo4uzCM1dBTNecD jnkK1osMD7USXel6ltzRNfdJP yr4gnl5DiplAxSHetQEMrFYps YNIlJYUoHV7zNBRoiDKioxPcu 7T1AogadUFhhxwkGpqjsrY6VL ktqnbuIDKpDAytB2svArYrALW klVbqYyaka5UpKRZuKGFgVryi cGFyfX0= Clinical Information (test code = 8369169562) Lanre Bales is a 28 year old femaleHematemesis with nausea [K92.0]Coffee ground emesis [K92.0]Abdominal pain, epigastric [R10.13]1. gastric biopsy eval H pylori Gross Description (test code = 6379409755) o1mhbKSsCROebUBKEUE6TYGkU G7alPqaaLw0kKczNHXuanP4uW AcXIygp4axSXN2v6ohqeRTQhk wIRMkRY2vJIpdEVZqDN9dCrUe XGRlZmYxXHBhcGVydzEyMjQwX WQqhIFecOJ5VMIoJB1urclqHB dxSGvtBBTrfcD2AGIzvSCwV2D aVXDxWO2qfgpgDHN8PJKFBenq Iv2rmTQqrPwfXjSeGpMdFASvG DVjKHZwo0oyanFKiqdbtLu4wY 2CUWScH9DyLA0Rz1ecHBFssIA pUCL5NNvad7yjGDucNKO5QNMn TSQyTHMaPE4DRvWfIRB9HNl7S SHtRqJ4ZSa1NDUQIFVdRKU7PV B2DgS7PCa1BRUlPV6mAXrtzEI gSZnrBrqrTTmsI778XZzoMDJt F3ZxN7EyPHghBnDwQGjbIUYjX OSdICoqUGMlF0MXFTHoDRV1WO X5CILeKSx5ARr8WD7XLwXiQTL nWtp7EpJ6SICiEWa3CYpiIB7A KRGbGZK5PWlhUaTuIOMfRZFyI Ij0SARhVCrzouRqVOzaUxbvLV riL23mvEDpQDFBQnjzeODrtvw mczIwIFNQRUNJTUVOIEFcbHRy J1dmPgAqDkgkLAIlARzrzNXeI CANClxwbGFpblxsdHJjaFxmcz RvQNRuxJKBYSP0RI7bKZGPVxn dtMEiUYVmKFtUtAPiyJ9uxjNY VYpbLHWvU0AykqVeEIrjPTVav a8ipGuoSOgbYmLpnWEuYGaqbT irtPhcJWBkkJycwuGrD9Q9rqN xFJ7uHWMPTQVofX5dAHDjQIGq a1AhxSKuqGcxN3BefKSsHvWkl N5us1suK5H3DCrIGENvqvBoU3 0ph5lsdKKgi9ZaLmP8LX3vnCu fuuRpkaMbN0KhHWGjp10nlJA2 sXQcyUOkYaLsG77ehuCrZGfdW kZmMF12ITDyUAgbSDG2ZOG8LS BncZSow7stduzqJG41EHjyPQ7 8GRfhNI7pCIRyZKmvJSFkG9Ye S3W2GFgpLSXvSQNqbCHnvU0or zHnylEwqFn9EMKqJJE8oIZxhA jcEHPdVladqRE7SCLiNtAngbX fm9AwnNj8eDRjEYhqHPXnzU8j oS8eWAObMLDqhpAZPzywANQuR Ytsn3BqOTbzzVvtREOmRjHfWL eBdCliFODDY3mhaRIwAQxhIIM UZLsMZ6NCZD9MOLIjwJMKMYH3 RZ8eNOvrZYIkX9QrB1QfujN0t 2tyrWguv2VivESwBC8xiVXuVD 0MAGEhlaQiKRd8 Disclaimer (test code = 6402030803) a1ukxRKhOXZwj0mnWTLxxWAkJ zEwMzNcZnRuYmpcdWMxIHtccn MpXBiyg7SnT7HpIaImXHhrkyG yCXHwChjsjxjtJECyKKA2mdDq GWUjDIqpELIuOEesIn1jkRXbs LfyWfRgKHNes0gygjQCYHpfBl VoI523KDFnERpij8woe7TeQQO twOLas6J1MFHIyfqarXk6vEcs X18aa8D2SxyvI3tuLTTnHURuT 8VoOR4xHKUqKdn0RGO6MEW5TL XhASXrU2WzXF3lNLRwwCJcMYb 8a1dxvUuiIWNmBHI3k4lqUZwg czVyZL7kdf9hlBf3u2jrutQxU UUtLTKxvAWCBVApE9TbsUfwRt 1qeGh6wOsfRnucHMJ7Xda1VE5 bfw36kiz3zGfrAPMxuxmfOnY9 ZKwbMRTbfxicGVm9BFbgUWTdw CE4EAMrfNPaB7FpLWBiSL1jij s9ZHL6XIsySXQvPvH4QDCzkGT uFDBclNgcMXgbo919KGQ5EsUo OP1uZ0Ywc5S9vS2mnPScQCHmb EQfNjNbXFQdcm6haYNnBVfwj0 AvGEZ4giY6nQRwiIFzWKIjPP0 7Wvkrd2HoFbump9DxN82cjDH1 PGthq2gtZG8tDqW1mzLxJXslw 9iveJ0aDzL3CDkeGW5jUI7lIN DhdJ0mktwtEHZwHcAvoucpRDH gwHecqjZsUz2alKtpIHY1KJxt Y5pgxP6oCkY3IHveN2fmvR7dD Zc1ZEmwxBL4WNIfhS4nAJ6zws cjf7woIEfuVJsmNCTozzN3wbC 2RXBnfZTwJ2DgpK4yONAkKB9z ggkbc9ikNBO8JPeqZOVqKJL4X kObAFZfk2Ukmso1InJza2CazL GjUWbeG47jq219KIFisfMdW0r wbGFpblxwbGFpblxmMFxmczI0 KCGgkiEuj2QlBKViDND1UTlbY FofmRQnRKUaoNirz3brD5IogA FyXHBsYWluXGYxXGZzMjBcbGF uZzEwMzNcaGljaFxmMVxkYmNo KAGwMEajX5epKtEgJ4AuXKIjO hCfqQTdN1vfVJeishSqJKMdyu WnnRC9ZOfuN5h1WFRmwzCooYv 6swHlEdBnRCUgBNA2NNydwRXa LCMze3EwikxtmKXtRs1bpUSkM IAoeJ2pDOIqHGDyQJsyOQ7xvG r0FPLLqSOntVBoGjBUSGGhLE3 1ofRbQAHEsldno3Z0NKbsYWXy k9ZooNEuP0hkf0MbOLBij64jI F6tw8V0w4lxFMB3VF5nt3BcNI CfqELroVRvRTWkh1Dyedfhv6L lJNQjttBhl9TfVNHmknInaJZh YRBeaaAslc2llwOeGIMwCSPcM 1ZpfqnuqElcadBsIAIokb7vyn QxZHQ2RRQTVWGbSDWeq4SxwC7 drQGHPVT0cHHtco5pvmOQpSAh CQKxqw71YNDpOU9aR6ahJPSwE HRxkgVidOCps4AiVNHmiBZ7pD KeBY4SSxIJc82zDESfWNWGsuQ aOTWlyKeljPP4iwS5aK4rGDjY REEpLlx+AUYiIIVRAVDtAI2zn uMsh0LbqhWtzQmgUYKtmNYsn1 OtxYWbv7WtuJcvl6TjxUJauNM sQX0dTHAuepmrVLWiHZVCFqOK LLUvhuZ5v7UcOWMfILIlOIT4r Vkuojd2XDQmfQ4eSVJeC8oztm kpBUkwAUWjp6CseW4ckOIEpZR gl0HyoGOccZYJdHEgSI9bimCr HBvGANcBUBH2ncZxEINvx8FuS AxdZ1fnQ08iuDahaMe6dSM2OV U5sA9dKbh+IFxwYXJccGFyIEF zbOWhaLUbJJLrtOznyoGjY9Lj wqFofZ6bdIRlybKrGI8mUC0mY 1Y8tYJrCPPzlyBwz6ypQVokef VeVtLaacHfVELmACenYFCla7F yDEgnVJH0UOarqgBgsrVsnGSt hlfnWAEIMKSLgNHwsROdXXA2T VsbjaWjksJcRU4szH9edAaqgI 5zwYLnaUJ5abepATNhOIImpCz aTWShGM8acHazeG2nAwIgZoCq DUlgNI0xYPCxA6cmlCEvNDWcN IRfU7spZtMivO5dmTecUKinEv JcZnMyMFxwYXJccGFyXHBsYWl uXGYxXGZzMjBcbGFuZzEwMzNc aGljaFxmMVxkYmNoXGYxXGxvY 6wuQeUmJ9GiFJXpNdSicVRtY6 adBGaxLNJ8XKFmPP1ueZByVK6 3hYMju9jvPZqeuWfxat5uG21i pDKpYJzqnOywITRzb57fh6PjE LZwpfTmbg7hGWKhpiI6iY5jWR JymOugQLHpwEObUDEml8ItBPy naXRpemVkIGdsYXNzIHNsaWRl uzL7xiJmorPmuhJoOXIhuVrhC HRvy8QdGGVcSExjg3Qrgj9zcA BaKOZcciYBuWaihWKrmG0dO9L aDREqMJCmiw2lTMWtzE7eVEch i8VtahqjQSThMKDbEVZvpdLkv h3mPUIbtTZIUN9FAYejtMTyq7 VrzcYlI5gXWAJ7KKMqDcPxQoz qWSMyfNDhhKMzWRJdbe78YIQr zU9kvYaiYWOdgY4ujE0diPmty U7kYdYeQkHrXVtdEM0iPOQuE7 pbsJBpGDKeIZGfT0bbZfFxvV8 jaFxmMVxjZjJcZnMyMFxwYXJ9 fQ== Embedded Images (test code = 1913855946) [facility] OVARY [id number] 16:40:41EXAM: US OVARY TORSION HISTORY: 28 years-old Female; Provided indication: eval for torsion; pelvicpain; bilateral 5.1cm cysts seen on CT . LMP = 4Pregnancy test = Negative. TECHNIQUE: Transabdominal and transvaginal ultrasound imaging and colorDoppler evaluation of the pelvis was performed. Spectral Doppler evaluationof the ovaries was performed. Electrical Prospecting Engineer images were obtained for therecord. COMPARISON: Same [...] Doppler.[facility]CT [facility]BD[facility]EN PELVIS W [id number] 14:33:00Indication: Nausea/vomiting ? Comparison: None RL: 4209 [...] abnormality is noted.[facility] CenterPregnancy Test, Exeet4975-07-41 11:59:46* Test Item Value Reference Range Interpretation Comme nts PREG SERUM (test code = 0561964030) Negative RUMA (test code = RUMA) Less than 10 IU/L. ?If low titer or ectopic is suspected, resubmit specimen in 48-72 hours. [facility] CenterComplete Metabolic Bajya6259-51-80 11:58:40* Test Item Value Reference Range Interpretation Comme nts NA (test code = 3794321970) 138 mmol/L 135-145 K (test code = 1555508415) 3.5 mmol/L 3.5-5.0 CL (test code = 2186280714) 106 mmol/L 98-108 CO2 TOTAL (test code = 8826057500) 23 mmol/L 23-31 AGAP (test code = 6500091878) 9 2-16 BUN (test code = 8422204430) 6 mg/dL 7-23 L GLUCOSE (test code = 1555200710) 122 mg/dL 70-110 H CREATININE (test code = 2160-0) 0.61 mg/dL 0.50-1.04 TOTAL BILI (test code = 7746613972) 0.6 mg/dL 0.1-1.1 CALCIUM (test code = 2776385107) 9.0 mg/dL 8.6-10.6 T PROTEIN (test code = 6683369577) 8.1 g/dL 6.3-8.2 ALBUMIN (test code = 0395991650) 4.4 g/dL 3.5-5.0 ALK PHOS (test code = 7011693069) 85 U/L 34-122 ALTv (test code = 1742-6) 20 U/L 5-35 AST(SGOT) (test code = 3632893138) 19 U/L 13-40 eGFR (test code = 87759-9) 125.8 mL/min/1.73m2 CKD-EPI eGFR (2020). Assuming creatinine has been stable day-to-day for at least three months, the eGFR indicates Category G1 (>= 90 mL/min/1.73 m2) Lab Interpretation (test code = 19474-7) [facility]normal [facility] CenterLip[facility], Ubwpc0565-33-02 11:58:19* Test Item Value Reference Range Interpretation Comme nts LIPASE (test code = 1021050808) 40 U/L 0-220 Lab Interpretation (test cod e = 14768-9) Normal [facility] CenterCB with Dmocuiqlriwh4478-81-96 11:41:57* Test Item Value Reference Range Interpretation [...] 32.8 g/dL 31.6-35.1 RDW-SD (test code = 24336-6) 51.3 fL 39.0-49.9 H RDW-CV (test code = 788-0) 13.7 % 12.0-15.5 PLT (test code = 777-3) 349 166-358 MPV (test code = 14909-4) 9.3 fL 9.5-12.9 L NRBC/100 WBC (test code = 0953356420) 0.0 0.0-10.0 NRBC x10^3 (test code = 7446652763) See_Comment [Automated messa ge] The system which generated this result transmitted reference range: 10*3/?L. The reference range was not used to interpret this result as normal/abnormal. GRAN MAT (NEUT) % (test code = 770-8) 73.3 % IMM GRAN % (test code = 1278497818) 0.40 % LYMPH % (test code = 736-9) 19.0 % MONO % (test code = 5905-5) 4.8 % EOS % (test code = 713-8) 2.0 % BASO % (test code = 706-2) 0.5 % GRAN MAT x10^3(ANC) (test code = 5737570883) 7.18 10*3/uL 1.88-7.09 H IMM GRAN x10^3 (test code = 0603968428) 0.04 10*3/uL 0.00-0.06 LYMPH x10^3 (test code = 731-0) 1.86 10*3/uL 1.32-3.29 MONO x10^3 (test code = 742-7) 0.47 10*3/uL 0.33-0.92 EOS x10^3 (test code = 711-2) 0.20 10*3/uL 0.03-0.39 BASO x10^3 (test code = 704-7) 0.05 10*3/uL 0.01-0.07 Lab Interpretation (test code = 31160-0) [facility]normal [facility] CenterCOMP[facility] METABOLIC PANEL (00417)2023-11-08 17:45:25* Test Item Value Reference Range Interpretation Comme nts NA (test code = 0796416760) 136 mmol/L 135-145 K (test code = 8896110336) 3.1 mmol/L 3.5-5.0 L CL (test code = 1842067216) 105 mmol/L 98-108 CO2 TOTAL (test code = 2954026176) 21 mmol/L 23-31 L AGAP (test code = 7025265547) 10 2-16 BUN (test code = 3638066306) 12 mg/dL 7-23 GLUCOSE (test code = 5245216159) 92 mg/dL 70-110 CREATININE (test code = 2160-0) 0.57 mg/dL 0.50-1.04 TOTAL BILI (test code = 1126439679) 0.6 mg/dL 0.1-1.1 CALCIUM (test code = 0524121604) 9.0 mg/dL 8.6-10.6 T PROTEIN (test code = 9354899707) 8.0 g/dL 6.3-8.2 ALBUMIN (test code = 2101078826) 4.3 g/dL 3.5-5.0 ALK PHOS (test code = 6690306688) 81 U/L 34-122 ALTv (test code = 1742-6) 17 U/L 5-35 AST(SGOT) (test code = 5186832263) 45 U/L 13-40 H eGFR (test code = 30551-9) 127.9 mL/min/1.73m2 CKD-EPI eGFR (2020). Assuming creatinine has been stable day-to-day for at least three months, the eGFR indicates Category G1 (>= 90 mL/min/1.73 m2) Lab Interpretation (test code = 78037-5) [facility]normal [facility] CenterLIPASE2024-[facility] 16:30:35* Test Item Value Reference Range Interpretation Comme nts LIPASE (test code = 2354724997) 53 U/L 0-220 Lab Interpretation (test cod e = 15568-1) Normal [facility]CBC WITH [id number] 16:15:57* Test Item Value Reference Range Interpretation [...] 33.1 g/dL 31.6-35.1 RDW-SD (test code = 95753-4) 50.1 fL 39.0-49.9 H RDW-CV (test code = 788-0) 13.8 % 12.0-15.5 PLT (test code = 777-3) 471 166-358 H MPV (test code = 59977-5) 9.2 fL 9.5-12.9 L NRBC/100 WBC (test code = 8416681582) 0.0 0.0-10.0 NRBC x10^3 (test code = 1979700704) See_Comment [Automated messa ge] The system which generated this result transmitted reference range: 10*3/?L. The reference range was not used to interpret this result as normal/abnormal. GRAN MAT (NEUT) % (test code = 770-8) 77.8 % IMM GRAN % (test code = 4598864967) 0.30 % LYMPH % (test code = 736-9) 16.7 % MONO % (test code = 5905-5) 4.7 % EOS % (test code = 713-8) 0.2 % BASO % (test code = 706-2) 0.3 % GRAN MAT x10^3(ANC) (test code = 0129008070) 9.31 10*3/uL 1.88-7.09 H IMM GRAN x10^3 (test code = 2181589555) 0.04 10*3/uL 0.00-0.06 LYMPH x10^3 (test code = 731-0) 1.99 10*3/uL 1.32-3.29 MONO x10^3 (test code = 742-7) 0.56 10*3/uL 0.33-0.92 EOS x10^3 (test code = 711-2) 0.03-0.39 L BASO x10^3 (test code = 704-7) 0.03 10*3/uL 0.01-0.07 Lab Interpretation (test code = 35703-1) [facility]normal [facility] CenterPOCA NCMF9566-84-34 16:01:00* Test Item Value Reference Range Interpretation Comme nts POCT PREG (test code = 1605) Negative On board controls acceptable with C Line (test code = 3574) Yes POCT PREG LOT # (test code = 3575) [id number] POCT PREG TEST DATE ( test code = 3576) 11-28-24 Lab Interpretation (test cod e = 43250-7) Normal [facility] WICI7727-24-27 16:30:00* Test Item Value Reference Range Interpretation Comme nts POCT PREG (test code = 1605) Negative On board controls acceptable with C Line (test code = 3574) Yes POCT PREG LOT # (test code = 3575) [id number] POCT PREG TEST DATE ( test code = 3576) 03/28/2024 Lab Interpretation (test cod e = 19413-5) Normal [facility] JSWX8792-39-32 20:18:00* Test Item Value Reference Range Interpretation Comme nts POCT PREG (test code = 1605) Negative On board controls acceptable with C Line (test code = 3574) Yes POCT PREG LOT # (test code = 3575) POCT PREG TEST DATE ( test code = 3576) [facility] JWSH6992-44-53 20:18:00* Test Item Value Reference Range Interpretation Comme nts POCT PREG (test code = 1605) Negative On board controls acceptable with C Line (test code = 3574) Yes POCT PREG LOT # (test code = 3575) POCT PREG TEST DATE ( test code = 3576) [facility] CenterDK [facility] - ZWL7353-13-02 04:42:10* Test Item Value Reference Range Interpretation Comme nts RPR (Qualitative) (test code = 22244-0) Nonreactive Nonreactive Lab Interpretation (test cod e = 63267-8) Normal [facility] CenterHepatitis B Surface Pngvtnj8214-65-62 17:49:35 * Test Item Value Reference Range Interpretation Comme nts HBsAg Semi-Quantitative (mesha t code = 5195-3) Negative Negative [facility] CenterHIV 1/2 AG-AB WITH HDISHL9431-03-50 12:19:16* Test Item Value Reference Range Interpretation Comme nts HIV Semi-quantitative (test code = 86250-8) Negative Negative RUMA (test code = RUMA) Non-reactive for HIV-1 antigen and HIV-1/HIV-2 antibodies. ?No laboratory evidence of HIV infection. ?Repeat in 2-4 weeks if acute HIV infection is suspected. [facility]. METABOLIC PANEL (94389)2021-11-26 11:29:08* Test Item Value Reference Range Interpretation Comme nts NA (test code = 9437366754) 137 mmol/L 135-145 K (test code = 4154766803) 3.6 mmol/L 3.5-5 CL (test code = 8729428611) 105 mmol/L 98-108 CO2 TOTAL (test code = 5809043985) 21 mmol/L 23-31 L AGAP (test code = 4631754403) 2-16 BUN (test code = 1101711881) 4 mg/dL 7-23 L GLUCOSE (test code = 6022137975) 93 mg/dL 70-110 CREATININE (test code = 5263907227) 0.49 mg/dL 0.5-1.04 L TOTAL BILI (test code = 8194691897) 0.2 mg/dL 0.1-1.1 CALCIUM (test code = 7111745211) 9.0 mg/dL 8.6-10.6 T PROTEIN (test code = 9407670957) 6.9 g/dL 6.3-8.2 ALBUMIN (test code = 3211252837) 3.7 g/dL 3.5-5 ALK PHOS (test code = 9917483214) 169 U/L 34-122 H ALTv (test code = 1742-6) 15 U/L 5-35 AST(SGOT) (test code = 4719340627) 23 U/L 13-40 eGFR (test code = 7593961083) mL/min/1.73m2 RUMA (test code = RUMA) Association [...] imaging tests). Lab Interpretation (test code = 51824-2) Abnormal [facility] CenterURIC WEUB9053-94-04 11:28:48* Test Item Value Reference Range Interpretation Comme [facility] URIC ACID (test code = 2419232306) 3.4 mg/dL 2.9-6 Lab Interpretation (test cod e = 25897-9) Normal [facility] CenterLACTATE GJCXWLNMCVGSV2334-21-47 11:24:10* Test Item Value Reference Range Interpretation Comme nts LDH (test code = 2809078145) 216 U/L 120-246 Lab Interpretation (test cod e = 35474-0) Normal [facility] CenterType and Screen - ONCE [id number] 10:30:18 * Test Item Value Reference Range Interpretation Comme nts ABO & RH (test code = 20) O Positive Performed at [facility] Laboratory Services - [facility] Blood [address] [place], [place] [id number] Free: [phone] No. [id number] IAT (test code = 1185) Negative Performed at [facility] Laboratory Services - [facility] Blood [address] [place], [place] [address]Toll Free: [phone] No. [id number] [facility] with Bnmfwwpgncag6653-15-01 09:46:38* Test Item Value Reference Range Interpretation [...] 34.9 g/dL 31.6-35.1 RDW-SD (test code = 15630-7) 40.9 fL 39-49.9 RDW-CV (test code = 788-0) 12.2 % 12-15.5 PLT (test code = 777-3) See_Comment [Automated messa ge] The system which generated this result transmitted reference range: 166 - 358 10*3/?L. The reference range was not used to interpret this result as normal/abnormal. MPV (test code = 41432-0) 9.9 fL 9.5-12.9 NRBC/100 WBC (test code = 7080020157) See_Comment [Automated me ssage] The system which generated this result transmitted reference range: 0.0 - 10.0 /100 WBCs. The reference range was not used to interpret this result as normal/abnormal. NRBC x10^3 (test code = 1198075001) See_Comment [Automated messa ge] The system which generated this result transmitted reference range: 10*3/?L. The reference range was not used to interpret this result as normal/abnormal. GRAN MAT (NEUT) % (test code = 770-8) 70.4 % IMM GRAN % (test code = 4685998042) 0.70 % LYMPH % (test code = 736-9) 20.1 % MONO % (test code = 5905-5) 6.0 % EOS % (test code = 713-8) 2.5 % BASO % (test code = 706-2) 0.3 % GRAN MAT x10^3(ANC) (test code = 6574191652) 8.92 10*3/uL 1.88-7.09 H IMM GRAN x10^3 (test code = [id number]) 0.09 10*3/uL 0-0.06 H LYMPH x10^3 (test code = 731-0) 2.55 10*3/uL 1.32-3.29 MONO x10^3 (test code = 742-7) 0.76 10*3/uL 0.33-0.92 EOS x10^3 (test code = 711-2) 0.32 10*3/uL 0.03-0.39 BASO x10^3 (test code = 704-7) 0.04 10*3/uL 0.01-0.07 Lab Interpretation (test code = 61063-8) Abnormal [facility] URINALYSIS W SPECIFIC [id number] 14:56:00* Test Item Value Reference Range Interpretation [...] POCT U APPEAR (test code = 3267) [facility] URINALYSIS W SPECIFIC [id number] 14:56:00* Test Item Value Reference Range Interpretation [...] POCT U APPEAR (test code = 3267) [facility] URINALYSIS W SPECIFIC [id number] 14:58:00* Test Item Value Reference Range Interpretation [...] POCT U APPEAR (test code = 3267) [facility] URINALYSIS W SPECIFIC [id number] 14:58:00* Test Item Value Reference Range Interpretation [...] POCT U APPEAR (test code = 3267) [facility] URINALYSIS W SPECIFIC [id number] 14:58:00* Test Item Value Reference Range Interpretation [...] POCT U APPEAR (test code = 3267) [facility] URINALYSIS W SPECIFIC [id number] 14:58:00* Test Item Value Reference Range Interpretation [...] POCT U APPEAR (test code = 3267) [facility] URINALYSIS W SPECIFIC [id number] 14:58:00* Test Item Value Reference Range Interpretation [...] POCT U APPEAR (test code = 3267) [facility] URINALYSIS W SPECIFIC [id number] 18:21:00* Test Item Value Reference Range Interpretation [...] MD 01/29/2024 9:03 AM PGY4, General Surgery BENCH OPERATOR HELPER Associated attestation - Eva Bryan MD - 01/29/2024 10:25 AM DRAW BENCH OPERATOR HELPER Attending Attestation: I personally evaluated and examined [...] Eva Bryan MD - 01/07/2024 11:15 AM DRAW BENCH OPERATOR HELPER Images from the original note were not included. GENERAL SURGERY CLINIC NOTE Reason for Visit / Chief Complaint: Abdominal pain, gallstones History of Present Illness: Lanre Bales is a 28 year old female with PMHx as below who presents for evaluation of abdominal pain and gallstones. She was seen at [facility] ED in 11/08/2023 for vomiting. Work [...] with nausea and vomiting and presented to [facility] on 01/01/[facility]24. An US was obtained which [...] lives with mother and child, FOB involved. Rastafari preference: Uatsdin. Has one cat, educated about diego litter [...] min Stress: No Stress Concern Present (12/19/2022) [employer] - Occupational Stress Questionnaire Feeling of Stress : Not at all Social Connections: Moderately Integrated (12/19/2022) Social Connection and Isolation Panel [NHANES] Frequency of Communication with Friends and Family: More than three times a week Frequency of Social Gatherings with Friends and Family: Twice a week Attends Rastafari Services: 1 to 4 times per year [...] othopnea, claudication, edema, coronary artery disease/history of [place] Respiratory: Cough, sputum production, hemoptysis, wheezing, shortness [...] consent obtained. Eva Bryan M.D. 01/07/2024 14:58 BENCH OPERATOR HELPER [facility] Notes Date/Time Note Provider Source 2024-06-16 09:33:47 [employer] message sent to patient, patient can call the pharmacy and they can fill it for her. Abbey Goel MA 06/16/2024 9:36 AM Abbey Goel MA [facility] 2024-05-27 23:23:15 1. Primary insomnia Additional time [...] he/she becomes sleepy while driving he/she will veneer puller and nap. Started on ramelteon for [...] - Advised to call clinic or contact [facility] patient care access center, phone # ([phone]) provided, and to go to emergency room/hospital/urgent care if feeling overwhelmed with worsening Sx. For the weight loss , are you still doing the qysmia ? [facility] 2024-05-22 09:03:26 What medication is the patient referring to ? Med list reviewed , is it doxepin or sertraline, ? The sertraline can be increased to 50mg , 25mg is the starting dose Also doxepin can contribute to weight gain , don't recommend. Can we talk more about your meds. T [facility] 2024-04-12 05:44:28 Pt given printed and verbal [...] with steady gait, in no apparent distress E Felix RN [facility] 2024-04-12 04:30:19 C/O cough, headache, nasal congestion, sore throat X 2 days. E Amin RN [facility] 2024-04-08 07:58:05 2.6 cm left ovarian cyst without significant free fluid - f/u with manager provider relations. [facility] 2024-04-07 08:56:55 Radiology report from [facility], placing in providers basket for review [facility] Bernarda Rudolph [facility] 2024-03-31 12:10:42 1. Class 3 severe obesity [...] 7.5mg qAM. Dispense: 30 capsule; Refill: 0 [facility] 2024-03-28 15:19:14 Images from the original [...] MD Gastroenterology: Antiulcer - Proton Pump Inhibitors Uzdbxe6503/28/2024 12:22 PM Protocol Details Valid encounter within last 12 months To be filled at: [facility] - [address] Last Refilled: 01/2024 Recent Visits Date Type Provider Dept 03/27/24 Appointment Jess Munson MD [facility] 02/27/24 Office Visit Jess Munson MD [facility] 01/03/24 Office Visit Jess Munson MD [facility] 11/19/23 Office Visit Jess Munson MD [facility] 08/06/23 Office Visit Jess Munson MD [facility] 01/24/23 Office Visit Jess Munson MD [facility] 12/25/22 Office Visit Jess Munson MD [facility] Showing recent visits within past 540 days with a meds authorizing provider and meeting all other requirements Future Appointments Date Type Provider Dept 05/28/24 Appointment Jess Munson MD [facility] Showing future appointments within next 150 days with a meds authorizing provider and meeting all other requirements BENCH OPERATOR HELPER Dhara Corral MA [facility] 2024-03-28 13:09:22 Images from the original note [...] by Jess Munson MD Provider Review Required Hnafwj3803/28/2024 09:36 AM Protocol Details This refill cannot be delegated Valid encounter within last 12 months To be filled at: [facility] - [address] Last Refilled: 02/27/24 Recent Visits Date Type Provider Dept 03/27/24 Appointment Jess Munson MD [facility] 02/27/24 Office Visit Jess Munson MD [facility] 01/03/24 Office Visit Jess Munson MD [facility] 11/19/23 Office Visit Jess Munson MD [facility] 08/06/23 Office Visit Jess Munson MD [facility] 01/24/23 Office Visit Jess Munson MD [facility] 12/25/22 Office Visit Jess uMnson MD [facility] Showing recent visits within past 540 days with a meds authorizing provider and meeting all other requirements Future Appointments Date Type Provider Dept 05/28/24 Appointment Jess Munson MD [facility] Showing future appointments within next 150 days with a meds authorizing provider and meeting all other requirements BENCH OPERATOR HELPER Dhara Corral MA [facility] 2024-03-26 10:41:39 PA has been completed via Cover My Meds. E Thomason RN [facility] 2024-03-26 08:53:46 Summary: Prior Authorization Request Images from the original note were not included. E Gray [facility] 2024-03-18 08:12:42 Pt is active on [employer], message has been sent. E Thomason RN [facility] 2024-03-18 08:03:48 Currently Qysmia which is not covered by patient insurance is the one approved residential . Every other regimen will be an off label use. Phentermine is approved for 3 months use only which patient has already tried. [facility] 2024-03-17 14:54:51 Call placed to pt, Pt states her Qysmia was not approved and would like refill on phentermine, Last Refilled: 01/28/2024 Recent Visits Date Type Provider Dept 02/27/24 Office Visit Jess Munson MD [facility] 01/03/24 Office Visit Jess Munson MD [facility] 11/19/23 Office Visit Jess Munson MD [facility] 08/06/23 Office Visit Jess Munson MD [facility] 01/24/23 Office Visit Jess Munson MD [facility] 12/25/22 Office Visit Jess Munson MD [facility] Showing recent visits within past 540 days with a meds authorizing provider and meeting all other requirements Future Appointments Date Type Provider Dept 05/28/24 Appointment Jess Munson MD [facility] Showing future appointments within next 150 days with a meds authorizing provider and meeting all other requirements BENCH OPERATOR HELPER Tiff Thomason RN [facility] 2024-03-17 14:15:48 Lanre Bales is a 28 year old female and the pt is calling to request another call from the PCP about the following medication phentermine-topiramate 3.75-23 mg per capsule Callback#:[phone] Please contact and advise. E Whitley [facility] 2024-03-16 02:32:09 Pt given printed and verbal [...] with steady gait, in no apparent distress. [facility] 2024-03-16 02:16:26 Pt arrives ambulatory to ED c/o tooth pain that has been worsening over the last couple of days. E Trivedi RN [facility] 2024-03-10 09:40:47 Patient will call back later, she is going to call her insurance to check if Qysmia will be covered. Patient will call back later. E Corrales MA [facility] 2024-03-10 09:02:20 Images from the original note [...] by Jess Munson MD Provider Review Required Hnkwim1103/10/2024 09:01 AM Protocol Details This refill cannot be delegated Valid encounter within last 12 months To be filled at: [facility] [address] [place] [address] 02-26-2023 [facility] 05-28-2024 E Corrales MA [facility] 2024-03-10 09:01:24 Images from the original note were not included. [facility] 2024-03-08 10:27:35 Was phentermine topiramate covered [facility] 2024-03-07 08:57:47 Noted, routing to provider for review. E Corrales MA [facility] 2024-03-07 08:02:29 Images from the original note were not included. [facility] 2024-03-06 09:29:10 Referral has been placed with OV notes attached. E Thomason RN [facility] 2024-03-05 15:54:06 Images from the original note were not included. [facility] 2024-03-05 14:57:18 1. Class 3 severe obesity [...] 5mg qWeek Dispense: 2 mL; Refill: 2 [facility] 2024-03-05 08:12:01 Can send the phentermine differently and topiramate differently [facility] 2024-03-04 14:44:11 Authorization completed, insurance will cover it. [employer] message sent to patient. Abbey Goel MA 03/04/2024 2:45 PM E Goel MA [facility] 2024-03-04 14:23:22 Patient is requesting a prior authorization for phentermine-topiramate (QSYMIA) 3.75-23 mg per capsule E Escobedo [facility] 2024-03-03 16:59:33 PA was denied for this medication. Pt was notified. BENCH OPERATOR HELPER Tiff Thomason RN [facility] 2024-03-03 11:11:56 Lanre Bales is a 28 year old female Alla with [employer] called and states that the submitted claim is not matching prior authorization. She is requesting for clinic to get with insurance to correct. Please advise. E Mcclain [facility] 2024-02-29 08:26:23 Medication not covered by insurance, will notify the provider to determine if other weight loss medications were discussed. Abbey Goel MA 02/29/2024 8:29 AM E Goel MA [facility] 2024-02-28 16:38:02 Images from the original note were not included. [facility] 2024-02-28 13:24:10 Medicine changed to qysmia [facility] 2024-02-28 08:35:57 Images from the original note were not included. E Malik [facility] 2024-02-27 15:54:17 PA has been submitted via Cover My Meds with OV note attached, [employer] message sent to pt. BENCH OPERATOR HELPER Tiff Thomason RN [facility] 2024-02-27 15:14:43 Patient is requesting a prior authorization for phentermine-topiramate (QSYMIA) 3.75-23 mg per capsule E Escobedo [facility] 2024-02-22 13:46:42 Images from the original note were not included. Results received from [facility] scanned in folder and placed in provider basket for review. BENCH OPERATOR HELPER Rossana Malik [facility] 2024-02-22 02:57:27 Pt given printed and verbal [...] encouraged to follow up with pcp & ON CAR SUPERVISOR. Advised to seek medical attention for new/prolonged/worsening of symptoms. No adverse reaction to meds given in ER noted upon discharge. PIV d'cd, dressing to site, catheter in tact. Awake, alert oriented, resp reg unlabored, skin w/d, pt leaving amb with steady gait, in no apparent distress. E Trivedi RN [facility] 2024-02-22 02:16:49 Ice chips given BENCH OPERATOR HELPER Radha Moody RN [facility] 2024-02-22 01:38:[address] Connected to blood pressure and pulse ox. Call light in reach. IV bolus infusing. [facility] 2024-02-22 00:45:05 Patient urinating, able to walk to bathroom independently E Duval RN [facility] 2024-02-22 00:29:[address] is waiting for urine to continue treatment. Pt stated she was on her period. Explained to pt that we hand to have a documented negative test to proceed with CT and her further cared is being delayed until we get urine. Pt verbalized understanding and said she would try in a few minutes. [facility] 2024-02-22 00:08:00 Patient states she does not need to urinate at this time and not wanting to try. [facility] 2024-02-21 23:49:50 Has had vomiting and diarrhea x 2 days. Has lap claire 3 weeks ago. C/O generalized abdominal pain. [facility] 2024-02-21 23:42:00 I personally examined the patient on 02/22/2024 and agree with [employer]celso's LOPEZ note with the following addition(s): CTAP-neg. Acute, known ovarian cyst . I actively participated in the decision-making process. Please see the Midlevel Provider's note for additional details. Curt Curry MD 02/22/24 0242 [facility] [employer] EMERGENCY PHYSICIAN STAFF [facility] 2024-02-21 08:15:34 Radiology report from [facility], will print & place on providers basket [facility] Bernarda Rudolph [facility] 2024-02-15 08:10:47 Please schedule follow up appointment for next Sunday [facility] 2024-02-14 08:54:37 Images from the original note were not included. Attempted to contact patient several times using the numbers on file and continue getting the busy signal. [employer] message sent at this time with providers recommendations. [facility] 2024-02-14 08:44:25 Closing this telephone encounter as this has been addressed in another telephone encounter 02/11/24. [facility] 2024-02-13 08:57:47 I previously recommended an [...] 02/13/2024 8:59 AM Colon and Rectal Surgery [facility] 2024-02-11 14:23:37 Patient returned call stating she is having a lot of pain, denies any fever, swelling, drainage from surgical sites. Patient had cholecystectomy on 01/29/24. Patient states she went to [facility] [place] ER last night and had imaging and labs which showed no issues. Patient states she was informed she only needed to take 1 day off of work after her surgery. 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 Please advise. E Perez RN [facility] 2024-02-11 13:16:52 Patient has been calling since [...] ER r/t her pain and there are [employer] messages stating as such. Attempted to contact patient at [phone] and via her emergency contact [phone]. Have called both numbers several times, only get a busy signal for both numbers. Responded to [employer] messages requesting patient contact the office and informed patient via [employer] message that [employer] messages are not answered immediately and all urgent needs should be called to office. PSS please have staff address phone call RACHAEL if patient calls back. Thank you. [facility] 2024-02-11 13:07:38 Patient has been calling [...] ER r/t her pain and there are [employer] messages stating as such. Attempted to contact patient at [phone] and via her emergency contact [phone]. Have called both numbers several times, only get a busy signal for both numbers. Responded to [employer] messages requesting patient contact the office and informed patient via MyChart message that MyChart messages are not answered immediately and all urgent needs should be called to office. PSS please have staff address phone call RACHAEL if patient calls back. Thank you. BENCH OPERATOR HELPER Rosalee Perez RN [facility] 2024-02-11 12:40:42 Images from the original note [...] if pain is too much. Analgesics: NSAIDS Enbwuq7002/11/2024 12:28 PM Protocol Details Valid encounter within [...] (01/29/2024) by Eva Bryan MD Controlled Substance Sjuiyk1802/11/2024 12:28 PM Protocol Details Valid encounter within last 3 months Pain agreement on file This refill cannot be delegated To be filled at: [id number] - [place], [place] - [address] Last Refilled: 01/29/24 Recent Visits Date Type Provider Dept 01/03/24 Office Visit Jess Munson MD [facility] 11/19/23 Office Visit Jess Munson MD [facility] 08/06/23 Office Visit Jess Munson MD [facility] 01/24/23 Office Visit Jess Munson MD [facility] 12/25/22 Office Visit Jess Munson MD [facility] Showing recent visits within past 540 days with a meds authorizing provider and meeting all other requirements Future Appointments Date Type Provider Dept 02/27/24 Appointment Jess Musnon MD [facility] Showing future appointments within next 150 days with a meds authorizing provider and meeting all other requirements [facility] Dhara Corral MA [facility] 2024-02-08 16:24:36 Attempted to contact patient using both numbers on file and continue getting the busy signal. [facility] 2024-02-08 14:53:13 Images from the original note were not included. Attempted to contact patient using both numbers on file and continue to get the busy signal. [facility] 2024-02-08 14:39:49 Given severity of pain, and if having any associated symptoms, such as fever, inability to eat, nausea, vomiting, she should either come to clinic this afternoon to see Villafuerte or return to the ED for bloodwork and imaging. Charley Posadas MD 02/08/2024 2:42 PM Colon and Rectal Surgery BENCH OPERATOR HELPER CRS-COLON & RECTAL SURGERY STAFF [facility] 2024-02-08 14:27:41 Images from the original note [...] symptoms continue to get worse. Please advise. [facility] 2024-02-08 14:24:06 Telephone encounter created 02/08/24 regarding patient's symptoms. [facility] 2024-02-08 13:26:14 Attempted to contact patient but continue to get busy signal. Will route to Dr Posadas for recommendations as Bryan is [place] E Frias RN [facility] 2024-02-08 11:46:35 Summary: Pain Medication Request s/p Lap Claire 01/28 I attempted to call pt to further access her symptoms and phone was busy. Unable to reach pt. I will try again over the phone and also respond to her [employer] message to get more information. E Wyman MA [facility] 2024-02-04 15:18:33 Patient notified. E Rolon RN [facility] 2024-02-04 14:39:44 She may resume phentermine 6 weeks following surgery [facility] 2024-01-31 08:09:22 Called number on file; no answer; message left to return call to clinic. E Rolon RN [facility] 2024-01-30 13:05:31 Pt had SX 01/28 and would like to know if she can resme taking Phentermine pilss. Please Assist [facility] Frankie Magallanes [facility] 2024-01-28 09:50:30 Images from the original note [...] ago (12/27/2023) by Jess Munson MD Off-Protocol Zfgmoj9501/25/2024 06:41 PM Protocol Details Medication not assigned to a protocol, forward to provider. Valid encounter within last 12 months zolpidem 5 mg tablet Sig: Take 1 tablet by mouth at bedtime as needed for Insomnia. Disp: 30 tablet Refills: 0 Start: 01/25/2024 Class: eRX PDMP Needs Review For: Primary insomnia Last ordered: 1 month ago (12/27/2023) by Jess Munson MD Provider Review Required Nkoamx7501/25/2024 06:41 PM Protocol Details This refill cannot [...] in mornings before meds kick in. Anti-nausea Zunamb3901/25/2024 06:41 PM Protocol Details This refill cannot be delegated Manual Review: [facility] providers only allowed to refill requests. Valid encounter within last 12 months To be filled at: [facility] [address] [place] [address] 01-03-2024 NOV 02-27-2024 BENCH OPERATOR HELPER Sabi Corrales MA [facility] 2024-01-21 15:14:50 Images from the original note were not included. Your procedure is at [facility] on 01/29/24. The address is [address] [place] [address], [id number]. [facility] nursing staff will call you the workday [...] symptoms at this time, no testing required. [facility] 2024-01-12 05:46:05 Awake, alert oriented X4, [...] discharge Pt taken to POV via wheelchair. E Amin RN [facility] 2024-01-12 04:56:14 Pt's boyfriend left phone # [phone] [facility] 2024-01-12 03:57:23 Patient arrived to ED c/o vomiting for two days. Hx of gallbladder issues. Sees Dr. Bryan. No medications taken INSURANCE CHECKER. [facility] 2024-01-11 12:44:39 1. Nausea and vomiting, unspecified vomiting type To Defer to GI for further questions - ondansetron 8 mg tablet; Take 1 tablet by mouth every 8 (eight) hours as needed for Nausea and Vomiting (N/V). Dispense: 24 tablet; Refill: 0 [facility] 2024-01-10 16:32:15 Forwarding to provider. [facility] 2024-01-02 08:00:08 Images from the original note were not included. Medical record received from [facility] scanned in folder and placed in provider basket for review. [facility] Rossana Malik [facility] 2023-12-25 13:55:45 Images from the original note [...] ago (11/19/2023) by Jess Munson MD Off-Protocol Hwwzor7612/25/2023 01:50 PM Protocol Details Medication not assigned to a protocol, forward to provider. Valid encounter within last 12 months zolpidem 5 mg tablet Sig: Take 1 tablet by mouth at bedtime as needed for Insomnia. Disp: 30 tablet Refills: 0 Start: 12/25/2023 Class: eRX PDMP Needs Review For: Primary insomnia Last ordered: 1 month ago (11/19/2023) by Jess Munson MD Provider Review Required Ncnnqr2312/25/2023 01:50 PM Protocol Details This refill cannot be delegated Valid encounter within last 12 months [facility] [facility] [address] [place] [address] 11-19-2023 NOV 02-27-2024 BENCH OPERATOR HELPER Sabi Corrales MA [facility] 2023-12-25 10:29:31 Please review patients request for ondansetron 4 mg dissolvable tablet instead of the prescribed ondansetron 4 mg tablet. Please advise, thank you. BENCH OPERATOR HELPER Zuleima Duarte LVN [facility] 2023-12-18 11:14:17 Noted Abbey Goel MA 12/18/2023 11:14 AM Abbey Goel MA [facility] 2023-12-18 09:36:32 Pt opted for appt today Anaya Andrews [facility] 2023-12-18 09:30:12 Lanre Bales is a 28 year old female Calling in wanting to know if PCP can prescribe proMETHazine 25 mg tablet If not pt would like to be advised on what to do to manage symptoms before her endoscopy Please advise [facility] 2023-12-18 09:17:17 Pt is returning clinic call. Karina Mcclain [facility] 2023-12-17 10:33:58 Routing to provider for review as office has not sent in Rx before. Recent Visits Date Type Provider Dept 11/19/23 Office Visit Jess Munson MD [facility] 08/06/23 Office Visit Jess Munson MD [facility] 01/24/23 Office Visit Jess Munson MD [facility] 12/25/22 Office Visit Jess Munson MD [facility] Showing recent visits within past 540 days with a meds authorizing provider and meeting all other requirements Future Appointments Date Type Provider Dept 02/27/24 Appointment Jess Munson MD [facility] Showing future appointments within next 150 days with a meds authorizing provider and meeting all other requirements Tiff Thomason RN [facility] 2023-12-17 10:29:18 Pt states she is having a gastritis flare as of last night. Pt said she has vomited a few times. She would like a prescription sent in for nausea. She said she does not want to go to the ER because she has her son. Please Advise. [facility] [address] [place] [id number] Alberta Ashraf [facility] 2023-12-11 14:03:58 Patient returned my [...] Pre op call complete. Jill Brown RN [facility] 2023-12-11 10:09:05 Left a message [...] medications. Prep and medication instructions sent via Cisiv & email: [email or web address] [facility] 2023-12-07 09:25:56 Images from the [...] Ordoñez NP Last refill: 09/05/2023 Rx #: [id number] Psychiatry: Antidepressants Sasmoz8812/07/2023 12:36 AM Protocol Details Manual Review: Verify no changes in dose in the last 3 months Valid encounter within last 12 months To be filled at: [facility]/pharmacy #[id number] - [place], [place] - [address] 11-19-2023 NOV 02-27-2024 Sabi Corrales MA [facility] 2023-11-19 10:30:00 Breath test [facility] 2023-11-19 10:30:00 Addended by: AYESHA LIANG on: 11/19/2023 02:54 PM Modules accepted: Orders Ayesha Liang [facility] 2023-11-19 08:13:22 Pt has scheduled appointment for 11/18. Rossana Malik [facility] 2023-11-18 18:46:30 1. Primary insomnia [...] with no significant benefit, will also discontinue. [facility] 2023-11-18 13:08:04 Patient given printed [...] in no apparent distress. Tosha Duval RN [facility] - Health 2023-11-18 07:19:14 [facility] ED Transfer of Care Note. [...] 1049) Results: Labs Reviewed COMP. METABOLIC PANEL (00018) - Abnormal; Notable for the following components: [...] to have appropriate medical decision making capability. ON CAR SUPERVISOR clinic referral placed. Disposition: Discharged Home Social Determinants of Health: None ED Disposition ED Disposition Disch - Home Condition Stable Comment -- T [facility] 2023-11-18 07:14:03 Patient report given to Crispin GALVAN [facility] 2023-11-18 05:26:10 Pt presents to ED with c/o vomiting 2 days. Pt states she also has pain in the top of her stomach. Pt rates pain 9/10 in abdomen No meds INSURANCE CHECKER LMP: couple weeks ago. T Lisha Spear RN [facility] 2023-11-18 05:21:00 [facility] Emergency Department Note Patient Name: Lanre Bales Date of : 1995 28 year old female Treatment Room: CA5/CA5 Primary Care Physician: Jess Munson Patient Escorted by: Family [5] Mode of Arrival: Personal means [1] EMS Treatment Prior to ED Arrival: INSURANCE CHECKER treatment: None Travel and Exposure Screening: Symptoms [...] History provided by: Significant other and patient automotive parts interpreter used: No Abdominal Pain Pain location: [...] Lab Results: Lab Results COMP. METABOLIC PANEL (49399) - Abnormal Result Value Ref Range NA [...] Eval: ED Events Date/Time Event User Comments 11/18/2358 Medical Screening Begins CARO BAUER MD -- 11/18/23 0558 First Provider Evaluation LIZETTE VARGAS, CARO Ferrara -- ED COURSE ED Course as of [...] Caro Bauer MD 11/18/23 0737 [facility] 2023-11-16 14:03:54 Images from the original note were not included. Requested Renewals zolpidem 5 mg tablet Sig: Take 1 tablet by mouth at bedtime as needed for Insomnia. Disp: 30 tablet Refills: 0 Start: 11/16/2023 Class: eRX For: Primary insomnia Last ordered: 4 weeks ago (10/19/2023) by Jess Munson MD Provider Review Required Cupgbj2011/16/2023 01:53 PM Protocol Details This refill cannot be delegated Valid encounter within last 12 months To be filled at: [facility]/pharmacy #[id number] - [facility] [place] - [address] 08-06-2023 NOV N/A Sabi Corrales MA [facility] 2023-11-16 14:03:07 Images from the [...] ago (10/16/2023) by Jess Munson MD Off-Protocol Sjnwuq7811/16/2023 01:48 PM Protocol Details Medication not assigned to a protocol, forward to provider. Valid encounter within last 12 months To be filled at: [facility] [address] [place] [address] 08-06-2023 NOV N/A Sabi Corrales MA [facility] 2023-11-16 13:49:19 Patient requesting a refill of:zolpidem Medication: zolpidem Dose: 5 mg Route: refill Quantity: 30 Pharmacy: [address] [address] Last appt.: 08/05 Next appt.: na Would like to speak with clinic about getting this done today [facility] 2023-11-16 13:46:24 Lanre Bales is a 28 year old female is calling to get an update on refill request. Pt wants this sent today Petty Valdivia [facility] 2023-11-15 11:34:30 Images from the [...] ago (10/16/2023) by Jess Munson MD Off-Protocol Blpfwl7911/15/2023 11:02 AM Protocol Details Medication not assigned to a protocol, forward to provider. Valid encounter within last 12 months To be filled at: [address] Last Refilled: 10/16/23 Recent Visits Date Type Provider Dept 08/06/23 Office Visit Jess Munson MD [facility] 01/24/23 Office Visit Jess Munson MD [facility] 12/25/22 Office Visit Jess Munson MD [facility] Showing recent visits within past 540 days with a meds authorizing provider and meeting all other requirements Future Appointments No visits were found meeting these conditions. Showing future appointments within next 150 days with a meds authorizing provider and meeting all other requirements Dhara Corral MA [facility] 2023-11-08 15:30:00 DC instructions and prescription for Zofran ODT reviewed with patient. She will fill prescription and take as directed. She will follow up with her PCP in 3-5 days as instructed. She will return to the ED if her symptoms persist or worsen. She was Dc'd ambulatory-alert and in no distress [facility] 2023-11-08 13:02:16 Report received and care assumed. [facility] 2023-11-08 12:50:54 Nurse Report Report given to COLE Miranda. Chief complaint, assessment findings, infusion verify and orders reviewed. Plan of care discussed with both nurses. Judy Marroquin RN Judy Marroquin RN [facility] 2023-11-08 10:15:50 Vomiting x3 days. Lucille Lester RN [facility] 2023-10-18 13:34:30 Images from the original note were not included. Notes: Patient requesting refill, please review. Abbey Goel MA 10/18/2023 1:35 PM Last Refilled: 09/13/23 Recent Visits Date Type Provider Dept 08/06/23 Office Visit Jess Munson MD [facility] 01/24/23 Office Visit Jess Munson MD [facility] 12/25/22 Office Visit Jess Munson MD [facility] Showing recent visits within [...] by Jess Munson MD Provider Review Required Fjbtet2610/18/2023 12:27 PM Protocol Details This refill cannot be delegated Valid encounter within last 12 months To be filled at: [address] Abbey Goel MA [facility] 2023-10-18 12:25:18 Lanre Bales is a 28 year old female and pt is calling back to check on her refill request. Would like to know when it will be refilled please advise. zolpidem [address] [address] [facility] 2023-10-16 13:12:14 Images from the original note were not included. Requested Renewals zolpidem 5 mg tablet Sig: Take 1 tablet by mouth at bedtime as needed for Insomnia. Disp: 30 tablet Refills: 0 Start: 10/16/2023 Class: eRX For: Primary insomnia Last ordered: 1 month ago (09/13/2023) by Jess Munson MD Provider Review Required Asiwls3610/16/2023 12:10 PM Protocol Details This refill cannot be delegated Valid encounter within last 12 months To be filled at: [address] 08-06-2023 NOV N/A Sabi Corrales MA [facility] 2023-10-15 13:12:38 Images from the [...] ago (09/13/2023) by Jess Munson MD Off-Protocol Opjfdb3110/15/2023 01:05 PM Protocol Details Medication not assigned [...] ago (10/03/2023) by Jess Munson MD Off-Protocol Ytmgnc1310/15/2023 01:05 PM Protocol Details Medication not assigned to a protocol, forward to provider. Valid encounter within last 12 months To be filled at: [facility] [address] [place] [address] 08-06-2023 NOV N/A Sabi Corrales MA [facility] 2023-10-02 08:26:45 Images from the original note were not included. Last OV:01/24/23 with Jess Munson MD Last Refill:12/26/22 prescribed by Jess Munson MD Last Labs Pertaining to Med:08/06/2023 Future Appt: Future Appointments Provider Department Dept Phone 2023 9:40 AM Jess Munson MD [facility] [place] [phone] Requested Renewals ergocalciferol, vitamin d2, (VITAMIN D2) 1,250 mcg (50,000 unit) capsule Sig: Take 1 capsule by mouth weekly. Disp: 12 capsule Refills: 0 Start: 10/01/2023 Class: eRX For: Vitamin D deficiency Last ordered: 9 months ago (12/26/2022) by Jess Munson MD Off-Protocol Frmkbh1410/01/2023 08:53 PM Protocol Details Medication not assigned to a protocol, forward to provider. Valid encounter within last 12 months To be filled at: [facility]/pharmacy #[id number] [place], [place] - [address] [place] [address] Abbey Goel MA [facility] 2023-09-13 08:20:32 Images from the [...] ago (08/06/2023) by Jess Munson MD Off-Protocol Zqefli8209/12/2023 06:49 PM Protocol Details Medication not assigned to a protocol, forward to provider. Valid encounter within last 12 months zolpidem 5 mg tablet Sig: Take 1 tablet by mouth at bedtime as needed for Insomnia. Disp: 30 tablet Refills: 0 Start: 09/12/2023 Class: eRX For: Primary insomnia Last ordered: 1 month ago (08/06/2023) by Jess Munson MD Provider Review Required Xoqcba8609/12/2023 06:49 PM Protocol Details This refill cannot be delegated Valid encounter within last 12 months To be filled at: [facility] [address] [place] [address] - [address] 08-06-2023 NOV N/A Sabi Corrales MA [facility] 2023-08-06 14:30:00 Images from the original note were not included. Venipuncture collection performed by clean technique on the right anticubitus. Total of 1 attempts were made. Slight pressure and a bandage/dressing were applied to the site(s). The patient experienced no complications. The following specimens were processed according to instructions and sent to [facility] laboratories per lab order on 08/06/2023 : LT BLUE SST 2 RED LAV 2 PPT DK GREEN (LiHep) 1 DK GREEN (SodH) HART DK BLUE (K2) 1 DK BLUE (S) ACD Blood Culture NIPT/NTD [facility] 2023-08-01 12:29:00 Attempted to reach patient to schedule with LORRAINE radford. Elin Trivedi [facility] 2023-07-31 18:24:47 You can schedule an appointment with me in person and we can review other options. Dr. Dias is out of office till next week. [facility] 2023-07-31 16:57:43 Images from the [...] lifestyle changes to get best results Off-Protocol Eebitg4607/31/2023 02:47 PM Protocol Details Medication not assigned to a protocol, forward to provider. Valid encounter within last 12 months To be filled at: [facility] [id number] Last Refilled: 05/29/2023 Recent Visits Date Type Provider Dept 01/24/23 Office Visit Jess Munson MD [facility] 12/25/22 Office Visit Jess Munson MD [facility] Showing recent visits within past 540 days with a meds authorizing provider and meeting all other requirements Future Appointments Date Type Provider Dept 08/13/23 Appointment Jess Munson MD [facility] Showing future appointments within next 150 days with a meds authorizing provider and meeting all other requirements Dhara Corral MA [facility] 2023-07-25 08:53:56 Images from the original note were not included. Requested Renewals traZODone 100 mg tablet Sig: Take 1 tablet by mouth at bedtime. Disp: 90 tablet Refills: 0 Start: 07/25/2023 Class: eRX Non-formulary For: Primary insomnia Last ordered: 3 months ago (04/23/2023) by Jess Munson MD Psychiatry: Antidepressants Hikwfx4907/25/2023 08:38 AM Protocol Details Manual Review: Verify no changes in dose in the last 3 months Valid encounter within last 12 months To be filled at: [facility]/pharmacy #[id number] - [place], [place] - [address] [place] [address] 01-24-2023 NOV N/A Sabi Corrales MA [facility] 2023-07-25 08:38:07 Images from the original note were not included. [facility] 2023-06-21 12:29:19 Patient dc home. Follow up with pcp. Verbalized understanding. Prosepr Segovia RN [facility] 2023-06-21 11:23:37 Pt arrived via private car with c/o dysuria x3 days ÍGUEZT Kelly Rolon RN [facility] 2023-06-21 11:14:00 [facility] Emergency Department Note Patient Name: [...] signed by: Bonita Trivedi DO 06/21/23 1216 [facility] 2023-06-12 14:39:19 Call placed to pt to discuss Cisiv message. Tiff Thomason RN [facility] 2023-05-29 14:42:38 Images from the [...] ago (04/12/2023) by Jess Munson MD Off-Protocol Ogwgop1805/29/2023 02:20 PM Protocol Details Medication not assigned to a protocol, forward to provider. Valid encounter within last 12 months To be filled at: [facility] - [address] Last Refilled: 04/12/23 Recent Visits Date [...] meeting all other requirements Dhara Corral MA [facility] 2023-04-23 10:14:44 Images from the original note were not included. Routed to provider for review. Unable to refill per ambulatory refill guidelines. Notes: traZODone 100 mg tablet Sig: Take 1 tablet by mouth at bedtime. Disp: 90 tablet Refills: 0 Start: 04/23/2023 Class: eRX Non-formulary For: Primary insomnia Last ordered: 2 months ago (01/24/2023) by Jess Munson MD Psychiatry: Antidepressants Fdrjpb8904/23/2023 09:19 AM Protocol Details Manual Review: Verify no changes in dose in the last 3 months Valid encounter within last 12 months To be filled at: [facility]/pharmacy #[id number] AT [facility] Last Refilled: 01/24/2023 Recent Visits Date Type Provider Dept 01/24/23 Office Visit Jess Munson MD [facility] 12/25/22 Office Visit Jess Munson MD [facility] Showing recent visits within past 540 days with a meds authorizing provider and meeting all other requirements Future Appointments Date Type Provider Dept 04/25/23 Appointment Jess Munson MD [facility] Showing future appointments within next 150 days with a meds authorizing provider and meeting all other requirements 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 E Jimenez RN [facility] 2023-04-11 15:07:24 Images from the [...] ago (03/02/2023) by Jess Munson MD Off-Protocol Nqnhim4704/11/2023 02:55 PM Protocol Details Medication not assigned to a protocol, forward to provider. Valid encounter within last 12 months To be filled at: [facility] [address] [place] [address] 01-24-2023 [facility] 04-25-2023 E Corrales MA [facility] 2023-04-02 12:51:41 Images from the original note were not included. Last OV: 01/24/2023 with Jess Munson Last Refill: 02/20/2023 prescribed by Jess Munson Last Labs Pertaining to Med: N/A Future Appt: Future Appointments Provider Department Dept Phone 04/25/2023 3:00 PM Jess Munson MD [facility] [place] [phone] Routed to provider for review. Unable to refill per ambulatory refill guidelines. zolpidem 5 mg tablet Sig: Take 1 tablet by mouth at bedtime as needed for Insomnia. Disp: 30 tablet Refills: 0 Start: 04/01/2023 Class: eRX For: Primary insomnia Last ordered: 1 month ago (02/20/2023) by Jess Munson MD Provider Review Required Qpdyre9404/01/2023 01:01 PM Protocol Details This refill cannot be delegated Valid encounter within last 12 months BENCH OPERATOR HELPER Melissa Jimenez RN [facility] 2023-03-02 13:44:04 Images from the [...] ago (01/26/2023) by Jess Munson MD Off-Protocol Qhgtel8603/02/2023 01:27 PM Protocol Details Medication not assigned to a protocol, forward to provider. Valid encounter within last 12 months To be filled at: [facility] [address] [place] [address] 01-24-2023 [facility] 04-25-2023 BENCH OPERATOR HELPER Sabi Corrales MA [facility] 2023-02-19 20:36:52 Images from the original note were not included. Last OV: 01/24/2023 with Jess Munson Last Refill: 01/16/2023 prescribed by Jess Munson Last Labs Pertaining to Med: N/A Future Appt: Future Appointments Provider Department Dept Phone 04/25/2023 3:00 PM Jess Munson MD [facility] [place] [phone] Routed to provider for review. Unable to refill per ambulatory refill guidelines. zolpidem 5 mg tablet Sig: Take 1 tablet by mouth at bedtime as needed for Insomnia. Disp: 30 tablet Refills: 0 Start: 02/19/2023 Class: eRX For: Primary insomnia Last ordered: 1 month ago (01/16/2023) by Jess Munson MD Provider Review Required Pountl6102/19/2023 03:32 PM Protocol Details This refill cannot be delegated Valid encounter within last 12 months BENCH OPERATOR HELPER Melissa Jimenez RN [facility]
[2024-06-17] MEDS ORDERED: KETOROLAC 30 MG/ML INJ ONE (05:13)
[2024-06-17] MEDS ORDERED: ONDANSETRON 4 MG/2 ML VIAL ONE ×2 (05:13→07:10)
[2024-06-17] MEDS ORDERED: FAMOTIDINE 20 MG/2 ML VIAL IV ONE (05:14)
[2024-06-17] MEDS ORDERED: PROMETHAZINE INJ 25 MG/ML AMP ONE ×3 (05:14→15:06)
[2024-06-17] MEDS ORDERED: NA CHLORIDE 0.9% 2,000 ML ONE (05:14)
[2024-06-17] MEDS ORDERED: DICYCLOMINE HCL 20 MG/2 ML AMP IM ONE (05:14)
[2024-06-17 05:34] LABS: Absolute Basophils 0.1 K/uL (0-0.5); Absolute Monocytes 0.8 K/uL (0.1-1.3); Absolute Neutrophil 8.5 K/uL (1.8-8.0); Basophils % 0.5 % (0-1.3); Eosinophils % 0.3 % (0-4.4); Hematocrit 40.5 % (36.0-45.0); Lymphocytes % 17.4 % (15.3-44.8); MCHC 34.6 g/dL (32.0-36.0); MCV 101.2 fL (80-100); MPV 7.2 fL (7.6-11.3); Monocytes % 7.3 % (3.3-12.3); Neutrophils % 74.5 % (41.7-73.7); Platelets 383 thou/uL (152-406); RBC Red Blood Cell Count 4.01 M/uL (3.86-4.86); Red Cell Distribution Width 13.3 % (12.1-15.2)
[2024-06-17 05:56] LABS: Albumin 3.7 g/dL (3.4-5.0); Anion Gap 6.1 mEq/L (5.0-15.0); Bilirubin Total 0.6 mg/dL (0.2-1.0); Globulin 3.8 g/dL (2.3-3.5); Potassium 3.1 mEq/L (3.5-5.1); Protein, Total 7.5 g/dL (6.4-8.2)
[2024-06-17] MEDS ORDERED: PROMETHAZINE 25 MG TABLET ONE (06:37)
--- NOTE | 2024-06-17 06:56 | EDPHYS ---
Physician Documentation [facility] Name: Robin Bernard Age: 28 yrs Sex: Female : 1995 Arrival Date: 06/17/2024 Time: 04:13 Bed 7 Private MD: ED Physician Gwyn Cain HPI: 06/17 04:36 This 28 yrs old Black Female presents to ER via Ambulatory with complaints of Abdominal sp4 Pain, Nausea/Vomiting. 04:37 Prescriptions 06/15/2024 - ondansetron 4 mg Oral Tablet,disintegrating take 1 tablet sp4 ORAL route every 8 hours as needed for nausea and vomiting; 20 tablet ashok promethazine 25 mg Rectal suppository insert 1 suppository RECTAL route every 6 hours as needed for nausea and vomiting; 15 suppository; ashok Protonix 40 mg Oral Tablet take 1 tablet ORAL route once daily; 30 tablet; ashok dicyclomine 20 mg Oral tablet take 1 tablet ORAL route 4 times per day; 28 tablet . 05:13 Patient presents with worsening abdominal pain epigastric location vomiting and other sp4 associated discomfort. . 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 - Infectious Disease History:: Denies. - Family history:: not pertinent. - Social history:: Smoking status: unknown. ROS: 05:14 Constitutional: Negative for fever, chills, and weight loss, sp4 05:14 All other systems are negative, Exam: 05:14 Constitutional: This is a well developed, well nourished patient who is awake, alert, sp4 and in no acute distress. Head/Face: Normocephalic, atraumatic. Eyes: Pupils equal round and reactive to light, extra-ocular motions intact. Lids and lashes normal. Conjunctiva and sclera are not injected. Cornea within normal limits. Periorbital areas with no swelling, redness, or edema. ENT: Nares patent. No nasal discharge, no septal abnormalities noted. Tympanic membranes are normal and external auditory canals are clear. Oropharynx with no redness, swelling, or masses, exudates, or evidence of obstruction, uvula midline. Mucous membranes moist. Neck: Trachea midline, no thyromegaly or masses palpated, and no cervical lymphadenopathy. Supple, full range of motion without nuchal rigidity, or vertebral point tenderness. Chest/axilla: Normal chest wall appearance and motion. Nontender with no deformity. No lesions are appreciated. Cardiovascular: Regular rate and rhythm with a normal S1 and S2. No gallops, murmurs, or rubs. Normal PMI, no JVD. No pulse deficits. Respiratory: Lungs have equal breath sounds bilaterally, clear to auscultation and percussion. No rales, rhonchi or wheezes noted. No increased work of breathing, no retractions or nasal flaring. Abdomen/GI: Soft, with normal bowel sounds. No distension or tympany. No guarding or rebound. No evidence of tenderness throughout. Back: No spinal tenderness. No costovertebral tenderness. Skin: Warm, dry with normal turgor. Normal color with no rashes, no lesions, and no evidence of cellulitis. MS/ Extremity: Pulses equal, no cyanosis. Neurovascular intact. Full, normal range of motion. Neuro: Awake and alert, GCS 15, oriented to person, place, time, and situation. Cranial nerves II-XII grossly intact. Motor strength 5/5 in all extremities. Sensory grossly intact. Psych: Awake, alert, with orientation to person, place and time. Behavior, mood, and affect are within normal limits Vital Signs: 04:29 BP 148 / 112; Pulse 86; Resp 16; Pulse Ox 96% ; Weight 111.13 kg; Height 5 ft. 5 in. ; vc1 Pain 9/10; 05:31 BP 138 / 108; Pulse 87; Resp 16; Temp 98.6; Pulse Ox 100% ; al5 06:00 BP 134 / 50; Pulse 84; Resp 18; Pulse Ox 98% on R/A; al5 04:29 Body Mass Index 40.77 (111.13 kg, 165.1 cm) vc1 04:29 Pain Scale: Adult vc1 Sebas Coma Score: 05:14 Eye Response: spontaneous(4). Motor Response: obeys commands(6). Verbal Response: sp4 oriented(5). Total: 15. MDM: 04:39 Medical Screening Exam initiated sp4 05:18 Data reviewed: vital signs, nurses notes, old medical records, lab test result(s), sp4 radiologic studies, CT review from 06/15/2024 CT abdomen and pelvis with IV contrast. There are cholecystectomy clips, mild fatty liver, no focal biliary dilatation. There is no acute or concerning abnormalities seen in the abdomen or pelvis based on the CT report.. 06/17 04:39 Order name: CBC with Diff; Complete Time: 06:28 sp4 06/17 04:39 Order name: CMP; Complete Time: 06:28 sp4 06/17 04:39 Order name: Lipase; Complete Time: 06:28 sp4 06/17 04:39 Order name: Test, Urine sp4 06/17 04:39 Order name: Urinalysis w/ reflexes sp4 06/17 05:10 Order name: Test, Serum; Complete Time: 06:28 sp4 06/17 06:54 Order name: Urine Drug Screen sp4 06/17 07:29 Order name: Basic Metabolic Panel EDMS 06/17 07:29 Order name: Basic Metabolic Panel EDMS 06/17 07:29 Order name: CBC with Automated Diff EDMS 06/17 07:29 Order name: CBC with Automated Diff EDMS 06/17 07:29 Order name: Magnesium EDMS 06/17 07:29 Order name: Magnesium EDMS 06/17 06:56 Order name: CT Abd/Pelvis - Without Contrast sp4 06/17 04:39 Order name: IV Saline Lock; Complete Time: 05:10 sp4 06/17 04:39 Order name: Labs collected and sent; Complete Time: 05:10 sp4 Administered Medications: 05:30 Drug: Famotidine IVP 20 mg IVP once; dilute with 10 mL 0.9% NaCl; give over 2 minutes al5 Route: IVP; Site: right antecubital; 06:59 Follow up: Response: No adverse reaction; Pain is decreased al5 05:30 Drug: Dicyclomine IM 20 mg IM once Route: IM; Site: right gluteus; al5 06:59 Follow up: Response: No adverse reaction; Pain is unchanged, physician notified al5 05:30 Drug: Droperidol IVP 2.5 mg IVP once Route: IVP; Site: right antecubital; al5 06:59 Follow up: Response: No adverse reaction; Pain is unchanged, physician notified al5 05:30 Drug: Promethazine IM 25 mg IM once Route: IM; Site: right gluteus; al5 06:59 Follow up: Response: No adverse reaction; Nausea unchanged al5 05:30 Drug: NS 0.9% IV 1000 ml IV at 1000 ml once; to be given as a bolus over 60 minutes al5 Route: IV; Rate: 1000 ml; Site: right antecubital; 07:30 Follow up: Response: No adverse reaction; IV Status: Completed infusion; IV Intake: ph 1000ml 05:31 Drug: TORadol - Ketorolac IVP 15 mg IVP once Route: IVP; Site: right antecubital; al5 07:00 Follow up: Response: No adverse reaction; Pain is unchanged, physician notified al5 05:31 Drug: Ondansetron IVP 8 mg IVP once; over 2 minutes Route: IVP; Site: right antecubital;al5 07:00 Follow up: Response: No adverse reaction; Nausea unchanged al5 05:31 Drug: NS 0.9% IV 1000 ml IV at 1 bolus Per protocol; to be given as a bolus over 60 al5 minutes Route: IV; Rate: 1 bolus; Site: right antecubital; 07:30 Follow up: Response: No adverse reaction; IV Status: Completed infusion; IV Intake: ph 1000ml 06:39 Drug: Promethazine PO 25 mg PO once Route: PO; bm8 06:58 Follow up: Response: No adverse reaction; Nausea unchanged al5 07:16 Drug: morphine IVP or IV 6 mg IVP once over 4 mins Route: IVP; Infused Over: 4 mins; bp Site: right antecubital; 08:00 Follow up: Response: No adverse reaction ph 07:16 Drug: Ondansetron IVP 4 mg IVP once; over 2 minutes Route: IVP; Site: right antecubital;bp 08:00 Follow up: Response: No adverse reaction ph Disposition Summary: 06/17/24 06:56 Hospitalization Ordered Notes: Hospitalization Status: Observation sp4 Provider: Eldon Ashton sp4 Condition: Fair sp4 Problem: new sp4 Symptoms: have improved sp4 Bed/Room Type: Standard sp4 Location: Telemetry/MedSurg (observation)(06/17/24 15:23) bd Room Assignment: 231(06/17/24 15:23) bd Diagnosis - Nausea with vomiting, unspecified sp4 - Acute gastroenteritis, intractable vomiting sp4 Forms: - Medication Reconciliation Form sp4 - SBAR form sp4 - Leadership Thank You Letter sp4 Signatures: Dispatcher [employer] EDWhitney Painter Brian, RN RN Karina Collazo RN RN vc1 Gwyn Cain MD MD sp4 Gerard Feliciano RN RN bm8 Sabi Mays RN RN al5 Bessy Frias RN ph Corrections: (The following items were deleted from the chart) 08:35 06:56 Telemetry/MedSurg (observation) sp4 bd 08:35 06:56 sp4 bd 15:23 08:35 [facility] ER HOLD bd bd 15:23 08:35 ERHOLD- bd bd
--- NOTE | 2024-06-17 06:56 | ER ---
Nurse's Notes [facility] Name: Robin Bernard Age: 28 yrs Sex: Female : 1995 Arrival Date: 06/17/2024 Time: 04:13 Bed 7 Private MD: Diagnosis: Nausea with vomiting, unspecified;Acute gastroenteritis, intractable vomiting Presentation: 06/17 04:29 Chief complaint: Patient states: nausea, vomiting and stomach pain for 4 days. vc1 Coronavirus screen: Client denies travel out of the [place] in the last 14 days. At this time, the client does not indicate any symptoms associated with coronavirus-19. Ebola Screen: Patient negative for fever greater than or equal to 101.5 degrees Fahrenheit, and additional compatible Ebola Virus Disease symptoms Patient denies exposure to infectious person. Patient denies travel to an Ebola-affected area in the 21 days before illness onset. No symptoms or risks identified at this time. Initial Sepsis Screen: Does the patient meet any 2 criteria? No. Patient's initial sepsis screen is negative. Does the patient have a suspected source of infection? No. Patient's initial sepsis screen is negative. Risk Assessment: Do you want to hurt yourself or someone else?. Onset of symptoms was June 13, 2024. 04:29 Method Of Arrival: Ambulatory vc1 04:29 Acuity: BOZENA 3 vc1 Triage Assessment: 04:31 General: Appears in no apparent distress. uncomfortable, Behavior is calm, cooperative, vc1 appropriate for age. Pain: Complains of pain in right upper quadrant and left upper quadrant Pain does not radiate. Pain currently is 9 out of 10 on a pain scale. Also complains of nausea. EENT: No deficits noted. No signs and/or symptoms were reported regarding the EENT system. Neuro: Level of Consciousness is awake, alert, obeys commands, Oriented to person, place, time, situation, Appropriate for age. Cardiovascular: Capillary refill < 3 seconds Patient's skin is warm and dry. Respiratory: Airway is patent Respiratory effort is even, unlabored, Respiratory pattern is regular, symmetrical. GI: Abdomen is round non-distended, Reports upper abdominal pain, nausea, vomiting. : No deficits noted. No signs and/or symptoms were reported regarding the genitourinary system. Derm: Skin is intact, is healthy with good turgor, Skin is dry, Skin is normal, Skin temperature is warm. Musculoskeletal: Circulation, motion, and sensation intact. Range of motion: intact in all extremities. 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 - Infectious Disease History:: Denies. - Family history:: not pertinent. - Social history:: Smoking status: unknown. Screenin:32 [facility] ED Fall Risk Assessment (Adult) History of falling in the last 3 months, al5 including since admission No falls in past 3 months (0 pts) Confusion or Disorientation No (0 pts) Intoxicated or Sedated No (0 pts) Impaired Gait No (0 pts) Mobility Assist Device Used No (0 pt) Altered Elimination No (0 pt) Score/Fall Risk Level 0 - 2 = Low Risk Oriented to surroundings, Maintained a safe environment, Hourly rounding (assess needs \T\ fall precautionary measures) done. Abuse screen: Denies threats or abuse. Denies injuries from another. Nutritional screening: No deficits noted. Tuberculosis screening: No symptoms or risk factors identified. Assessment: 05:32 General: Appears in no apparent distress. uncomfortable, Behavior is calm, cooperative. al5 Pain: Complains of pain in epigastric area. Neuro: Level of Consciousness is awake, alert, obeys commands, Oriented to person, place, time, situation. Cardiovascular: Capillary refill < 3 seconds Patient's skin is warm and dry. GI: Abdomen is non-distended, obese, Bowel sounds present X 4 quads. Abd is soft X 4 quads Abdomen is tender to palpation in epigastric area Reports upper abdominal pain. : No signs and/or symptoms were reported regarding the genitourinary system. EENT: No signs and/or symptoms were reported regarding the EENT system. Derm: Skin is intact, is healthy with good turgor, Skin is pink, warm \T\ dry. normal. Musculoskeletal: No signs and/or symptoms reported regarding the musculoskeletal system. Vital Signs: 04:29 BP 148 / 112; Pulse 86; Resp 16; Pulse Ox 96% ; Weight 111.13 kg; Height 5 ft. 5 in. ; vc1 Pain 9/10; 05:31 BP 138 / 108; Pulse 87; Resp 16; Temp 98.6; Pulse Ox 100% ; al5 06:00 BP 134 / 50; Pulse 84; Resp 18; Pulse Ox 98% on R/A; al5 04:29 Body Mass Index 40.77 (111.13 kg, 165.1 cm) vc1 04:29 Pain Scale: Adult vc1 [place]ass[place] Coma Score: 05:14 Eye Response: spontaneous(4). Motor Response: obeys commands(6). Verbal Response: sp4 oriented(5). Total: 15. ED Course: 04:14 Patient arrived in ED. jj6 04:30 Triage completed. vc1 04:30 Arm band placed on right wrist. vc1 04:36 Gwyn Cain MD is Attending Physician. sp4 04:59 Sabi Mays RN is Primary Nurse. al5 05:32 Patient has correct armband on for positive identification. Placed in gown. Bed in low al5 position. Call light in reach. Side rails up X2. Provided Education on: plan of care. 05:32 No provider procedures requiring assistance completed. Inserted saline lock: 20 gauge al5 in right antecubital area, using aseptic technique. Blood collected. Flushed with 10 mL NS. 06:55 Eldon Ashton MD is Hospitalizing Provider. sp4 07:30 CT Abd/Pelvis - Without Contrast In Process Unspecified. EDMS 09:00 Patient admitted, IV remains in place. ph Administered Medications: 05:30 Drug: Famotidine IVP 20 mg IVP once; dilute with 10 mL 0.9% NaCl; give over 2 minutes al5 Route: IVP; Site: right antecubital; 06:59 Follow up: Response: No adverse reaction; Pain is decreased al5 05:30 Drug: Dicyclomine IM 20 mg IM once Route: IM; Site: right gluteus; al5 06:59 Follow up: Response: No adverse reaction; Pain is unchanged, physician notified al5 05:30 Drug: Droperidol IVP 2.5 mg IVP once Route: IVP; Site: right antecubital; al5 06:59 Follow up: Response: No adverse reaction; Pain is unchanged, physician notified al5 05:30 Drug: Promethazine IM 25 mg IM once Route: IM; Site: right gluteus; al5 06:59 Follow up: Response: No adverse reaction; Nausea unchanged al5 05:30 Drug: NS 0.9% IV 1000 ml IV at 1000 ml once; to be given as a bolus over 60 minutes al5 Route: IV; Rate: 1000 ml; Site: right antecubital; 07:30 Follow up: Response: No adverse reaction; IV Status: Completed infusion; IV Intake: ph 1000ml 05:31 Drug: TORadol - Ketorolac IVP 15 mg IVP once Route: IVP; Site: right antecubital; al5 07:00 Follow up: Response: No adverse reaction; Pain is unchanged, physician notified al5 05:31 Drug: Ondansetron IVP 8 mg IVP once; over 2 minutes Route: IVP; Site: right antecubital;al5 07:00 Follow up: Response: No adverse reaction; Nausea unchanged al5 05:31 Drug: NS 0.9% IV 1000 ml IV at 1 bolus Per protocol; to be given as a bolus over 60 al5 minutes Route: IV; Rate: 1 bolus; Site: right antecubital; 07:30 Follow up: Response: No adverse reaction; IV Status: Completed infusion; IV Intake: ph 1000ml 06:39 Drug: Promethazine PO 25 mg PO once Route: PO; bm8 06:58 Follow up: Response: No adverse reaction; Nausea unchanged al5 07:16 Drug: morphine IVP or IV 6 mg IVP once over 4 mins Route: IVP; Infused Over: 4 mins; bp Site: right antecubital; 08:00 Follow up: Response: No adverse reaction ph 07:16 Drug: Ondansetron IVP 4 mg IVP once; over 2 minutes Route: IVP; Site: right antecubital;bp 08:00 Follow up: Response: No adverse reaction ph Medication: 05:33 VIS not applicable for this client. al5 Intake: 07:30 IV: 1000ml; Total: 1000ml. ph 07:30 IV: 1000ml; Total: 2000ml. ph Outcome: 06:56 Decision to Hospitalize by Provider. sp4 09:00 Admitted to ER Hold. Please see [facility] for further documentation. ph 09:00 Condition: good 09:00 Instructed on the need for admit, 16:39 Patient left the ED. ph Signatures: Dispatcher [employer] EDBessy Loving RN RN ph Gianni Toro RN RN Zuleima Stricklandj6 Karina Vasquez RN RN vc1 Gwyn Cain MD MD sp4 Gerard Feliciano RN RN bm8 Sabi Mays RN RN al5 Corrections: (The following items were deleted from the chart) 06:59 06:59 Response: No adverse reaction al5 al5
[2024-06-17] MEDS ORDERED: MORPHINE 4 MG/ML SYR ONE (07:10)
--- NOTE | 2024-06-17 07:24 | P.HP ---
Certification for Inpatient Patient admitted to: Observation Practitioner: I am a practitioner with admitting privileges, knowledge of patient current condition, hospital course, and medical plan of care. Services: Services provided to patient in accordance with Admission requirements found in Title 42 Section 412.3 of the Code of Federal Regulations Patient History Date of Service: 06/17/24 Reason for admission: Intractable nausea vomiting History of Present Illness: 28-year-old female With past medical history of obesity, CT of the abdomen, gastritis past medical history presents to the emergency room with abdominal pain. She reports associated nausea vomiting. She reports epigastric abdominal pain, 8 out of 10. Unable to tolerate p.o. intake she reports symptoms worse with p.o. intake. She reports history of some marijuana use. Blood pressure is 148/112, heart rate 86, 56% on room air, BMI 40, CT of the abdomen There are cholecystectomy clips, mild fatty liver, no focal biliary dilatation. There is no acute or concerning abnormalities seen in the abdomen or pelvis based on the CT. Treated with normal saline, Pepcid, Toradol and Zofran in the emergency room. Symptoms not resolved, plan to admit for intractable nausea vomiting, gastroenteritis, for IV fluids, as needed analgesics, antiemetics. Allergies metoclopramide [From Reglan] Adverse Reaction (Verified 06/17/24 12:00) Itching Milk/dairy products Allergy (Uncoded 11/05/14 13:25) Unknown No Known Allergie Allergy (Uncoded 08/16/15 23:45) Unknown Home Medications: Doxepin HCl [Sinequan] 10 mg PO BEDTIME 06/17/24 Ondansetron [Zofran] 4 mg PO Q6H PRN 06/17/24 Pantoprazole Sodium [Protonix] 40 mg PO DAILY 06/17/24 Sertraline [Zoloft] 25 mg PO DAILY 06/17/24 Zolpidem Tartrate 5 mg PO BEDTIME PRN PRN 06/17/24 - Past Medical/Surgical History -: Gastritis -: Insomnia -: Placenta previa -: Cholecystectomy - Social History Smoking Status: Current some day smoker Alcohol use: No Place of Residence: Home Review of Systems 10-point ROS is otherwise unremarkable Physical Examination - Physical Exam General: Alert, In no apparent distress, Oriented x3, Obese HEENT: Atraumatic, Normocephalic, PERRLA Neck: Supple, JVD not distended Respiratory: Clear to auscultation bilaterally, Normal air movement Cardiovascular: Normal pulses, Regular rate/rhythm, Normal S1 S2 Capillary refill: <2 Seconds Gastrointestinal: Normal bowel sounds, Other (Epigastric tenderness) Musculoskeletal: No swelling, No contractures Integumentary: No breakdown, No significant lesion Neurological: Normal gait, Normal speech, Normal strength at 5/5 x4 extr - Studies Laboratory Data (last 24 hrs) 06/17/24 06/17/24 05:08 05:08 WBC 11.40 H Hgb 14.0 Hct 40.5 Plt Count 383 Sodium 136 Potassium 3.1 L BUN 8 Creatinine 0.74 Glucose 112 H Total Bilirubin 0.6 AST 20 ALT 29 Alkaline Phosphatase 81 Lipase 26 Assessment and Plan - Problems (Diagnosis) (1) Intractable nausea and vomiting Current Visit: Yes Status: Acute (2) Gastroenteritis Current Visit: Yes Status: Acute (3) Epigastric pain Current Visit: Yes Status: Acute (4) Hypokalemia Current Visit: Yes Status: Acute - Plan IV fluid ,Analgesics, antiemetic, PPI, ceftriaxone Urine culture, urine drug screen ordered Advance diet as tolerated CT unremarkable, no acute finding Trend electrolytes replace as needed Full code DVT SCDs Diet advance as tolerated Discharge Plan: Home - Advance Directives Does patient have a Living Will: No Does patient have a Durable POA for Healthcare: No - Code Status/Comfort Care Code Status: Full Code Critical Care: No Time Spent Managing Pts Care (In Minutes): 55
[2024-06-17] MEDS ORDERED: KETOROLAC 30 MG/ML INJ IV PRN (07:28)
--- NOTE | 2024-06-17 07:44 | RAD REPORT ---
EXAMINATION: CT ABDOMEN AND PELVIS WITHOUT CONTRAST CLINICAL INDICATION: Abdominal pain TECHNIQUE: CT abdomen and pelvis was performed, as per department protocol. IV contrast and oral was not administered.Axial, sagittal and coronal reconstructions were obtained. One or more of the following dose reduction techniques were used: Automated exposure control, adjustment of the mA and/o r kV according to the patient size, and/or iterative reconstruction. Unless otherwise specified, incidental findings do not require dedicated imaging follow-up. [id number]. COMPARISON: June 15, 2024 FINDINGS: The lack of intravenous and oral contrast limits evaluation of solid organs, vessels and bowel. The liver, spleen, pancreas, adrenals and kidneys appear grossly normal. Cholecystectomy. Normal appendix. No adnexal mass. No evidence of diverticulitis IMPRESSION: No acute abnormality displayed
[2024-06-17] MEDS: NA CHLORIDE 0.9% 1,000 ML IV SCH (08:00)
[2024-06-17] MEDS ORDERED: SODIUM CHLORIDE 0.9% 10ML INJ IV PRN (08:52)
[2024-06-17] MEDS: CEFTRIAXONE 1,000 MG in NA CHLORIDE 0.9% 50 ML IVPB SCH (09:00)
[2024-06-17] MEDS: KCL 20 MEQ/100 mL IVPB 20 MEQ/100 ML BAG IV SCH (09:00)
[2024-06-17] MEDS: PANTOPRAZOLE 40 MG INJ IVP SCH (09:00)
[2024-06-17 09:29] VITALS: BMI 40.7
[2024-06-17] MEDS ORDERED: PANTOPRAZOLE 40 MG INJ ONE (09:32)
[2024-06-17] MEDS ORDERED: CEFTRIAXONE 1000 MG/VIAL ONE (09:32)
[2024-06-17] MEDS ORDERED: NA CHLORIDE 0.9% 1,000 ML ONE ×2 (09:33→15:11)
[2024-06-17] MEDS ORDERED: NA CHLORIDE 0.9% 50 ML ONE (09:33)
[2024-06-17] MEDS ORDERED: KCL 20 MEQ/100 mL IVPB 100 ML IV ONE ×2 (09:34→15:06)
[2024-06-17] MEDS: PROMETHAZINE INJ 25 MG/ML AMP IV PRN (10:49)
--- NOTE | 2024-06-17 14:05 | P.PN ---
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 Subjective: No chest pain or shortness of breath. Present with nausea, vomiting and abdominal pain. No diarrhea. No obvious bleeding other than menstrual bleeding. Looks comfortable in the bed. Objective: General appearance: Alert and comfortable CVS: Normal S1 and S2 Lungs: Clear to auscultation bilaterally Abdomen: Soft, bowel sounds present, no tenderness Extremities: No lower extremity edema 28 yo patient presents with intractable nausea, vomiting and abdominal pain, symptoms slowly improving, could be related to marijuana but she says she last smoked 2 months back, still waiting for urinalysis and urine drug screen. CT abdomen negative. Supportive care for now. Hypokalemia, replace and monitor. DC home tomorrow if symptoms better.
[2024-06-17] MEDS ORDERED: MORPHINE 2 MG/ML SYR ONE (15:11)
[2024-06-17] MEDS: MORPHINE 2 MG/ML SYR IV PRN (15:19)
[2024-06-17] MEDS: ONDANSETRON 4 MG/2 ML VIAL IV PRN (18:44)
[2024-06-18 06:16] VITALS: TEMP 98.6
[2024-06-18 06:18] VITALS: BP 134/50; O2SAT 98
== END 2024-06-17 23:32 | disposition left against medical advice (07) ==
LOC: ER 04:13 → ERHOLD 07:24 → 2ND 15:50
PROVIDERS: ADMIT Hospitalist; ATTEND Hospitalist
DX: K52.9 Noninfective gastroenteritis and colitis, unspecified (principal); R11.2 Nausea with vomiting, unspecified; E66.9 Obesity, unspecified; R10.13 Epigastric pain; K29.70 Gastritis, unspecified, without bleeding; E87.6 Hypokalemia; Z68.41 Body mass index [BMI] 40.0-44.9, adult; Z88.8 Allergy status to other drugs, medicaments and biological substances; Z91.011 Allergy to milk products
CPT/HCPCS: 36415; 74176; 80053; 83690; 84703; 85025; 96361; 96372; 96374; 96375; 99285; G0378; J0500; J0696; J2270; J2405; J2470; J2550; J3480; J7030; Q0169

== ENCOUNTER 2024-06-19 01:40 | Emergency (ER) | payer SELFPAY ==
--- OUTSIDE RECORDS SUMMARY | 2024-06-19 01:51 | XMS REPORT | Continuity of Care Document ---
Author Name Unknown Address [address] [facility] [address] [place] [address] Organization [facility] [place] Address [address] [facility] [place] [address] Care Team Providers Care Rejected Items Clerk Name Role Phone Jess Munson MD Primary Care Physician + [phone] Jess Munson MD Attending Clinician [phone] JESS MUNSON Attending Clinician Unavailab JESS Killian Attending Clinician Unavailab le Doctor Unassigned, [place] Attending Clinician U violaailANGUS Alvarez Attending Clinician Unavailable ANGUS DWYER Attending Clinician Unavailable Angus Dwyer DO Attending Clinician [phone] ASTER LEE Attending Clinician Unavailable ASTER LEE Attending Clinician Unavailable Aster Lee NP Attending Clinician +[phone] Eva Bryan MD Attending Clinician +[phone] EVA BRYAN Attending Clinician Unavailable VANESSA LEYVA Attending Clinician Unavailable VANESSA LEYVA Attending Clinician Unavailable SHORTY ZAMBRANO Attending Clinician Unavailable SHORTY ZAMBRANO Attending Clinician Unavailable Shorty Draper Attending Clinician +[phone] Radha Hurst MD Attending Clinician + [phone] Gianni Lopez CRNA Attending Clinician [phone] TIANNA MEI Attending Clinician Unavailable TIANNA MEI Attending Clinician Unavailable CARO BAUER Attending Clinician Unavailable CARO BAUER Attending Clinician Unavailable Caro Bauer MD Attending Clinician + [phone] Yann Ordonez Attending Clinician + [phone] Yisel Hart MD Attending Clinician +[phone] YISEL HART Attending Clinician Unavailable KONRAD ORDOÑEZ Attending Clinician Unavailab KONRAD Holguin Attending Clinician Unavailab merly Ordoñez SUBWAY TRAIN OPERATOR, Konrad Attending Clinician +[phone] Tianna Young Attending Clinician +[phone] ISAAC SHAY Attending Clinician Unavailable Vanessa Leyva MD Attending Clinician +[phone] Jose De Jesus Medina MD Attending Clinician +[phone] JOSE DE JESUS MEDINA Attending Clinician Unavailable JOSE DE JESUS MEDINA Attending Clinician Unavailable 2, [facility] Attending Clinician Unavailable KELLY SIMMS Attending Clinician UnavailKELLY Ferrera Attending Clinician Unavailelliott Simms MD, Kelly Tolentino Attending Clinician + [phone] TIFF ISABEL Attending Clinician Unavailable TIFF ISABEL Attending Clinician Unavailable Maame SUBWAY TRAIN OPERATOR, Tiff Attending Clinician +[phone] 2, [facility] Attending Clinician Unavailable BONITA TRIVEDI Attending Clinician Unavailab Bonita Hernandez DO Attending Clinician + [phone] Carlos Ibrahim MD Attending Clinician [phone] Doctor Unassigned, [place] Attending Clinician U NICOLE Aparicio Attending Clinician UnavailNICOLE Sellers Attending Clinician Unavaila KAMILA Barrios Attending Clinician Unavailable JACINTA VOSS Attending Clinician Unavaila susu Rivera, [facility] Attending Clinician Henrietta Meche Junior Attending Clinician + Shanika PIERRE, Jacinta Castro Attending Clinician [phone] MECHE ROBERSON Attending Clinician Unavail able Rodrick Carlisle Attending Clinician UnaDREW Thacker Attending Clinician Unavailable RODRICK PETE Attending Clinician UnavailWilver Khan MD Attending Clinician +[phone] LOVE DOWELL Attending Clinician UnavailLOVE Gonzalez Attending Clinician Unavailabl BRENDA Klein Attending Clinician Unavailable Brenda Velásquez MD Attending Clinician +[phone] Richard PAC, Fernando Isabel Attending Clinician +[phone] Ultrasound, Ang-Mfm Attending Clinician Unavaila Vinh Romano MD Attending Clinician +[phone] VINH MONCADA Attending Clinician Unavailable VINH MONCADA Attending Clinician Unavailable Juan BOND, Ivanna Attending Clinician +[phone] Maddie Romoe MD Attending Clinician +[phone] MADDIE ROMEO Attending Clinician Unavailable Lab, Ang-Rmchp Attending Clinician Unavailable Chema PAC, Alayna S Attending Clinician [phone] Abdullahi Gomez MD Attending Clinician +[phone] Foreign Calvillo Attending Clinician + [phone] Edith Terry MD Attending Clinician +[phone] EDITH TERRY Attending Clinician Unavailable EDITH TERRY Attending Clinician Unavailable SHORTY ZAMBRANO Admitting Clinician Unavailable EVA BRYAN Admitting Clinician Unavailable Eva Bryan MD Admitting Clinician +[phone] YISEL HART Admitting Clinician Unavailable Yisel Hart MD Admitting Clinician +[phone] KELLY SIMMS Admitting Clinician UnavailVANESSA Garza Admitting Clinician Unavailable Vanessa Leyva MD Admitting Clinician +[phone] BRENDA VELÁSQUEZ Admitting Clinician Unavailable Brenda Velásquez MD Admitting Clinician +[phone] Edith Terry MD Admitting Clinician EDITH TERRY Admitting Clinician Unavailable Payers Payer Name Policy Type Policy Number Effective Date Expirati on Date Source SUPERIOR SQUIRES [id number] 2021 00:00:00 Problems Condition Name Condition Details Condition Category Status Onset Date Resolution Date Last Treatment Date Treating Clinician Comments Source Gallbladde r sludge Gallbladde r sludge Disease Active 2023-02-23 00:00: 00 [facility] Hematemesi s with nausea Hematemesi s with nausea Disease Active 2023-02 0-03 00:00: 00 [facility] Coffee ground emesis Coffee ground emesis Disease Active 2023-02 0-03 00:00: 00 [facility] Abdominal pain, epigastric Abdominal pain, epigastric Disease Active 2023-02 0-03 00:00: 00 [facility] Papanicola ou smear of cervix with low grade squamous intraepith elial lesion (LGSIL) Papanicola ou smear of cervix with low grade squamous intraepith elial lesion (LGSIL) Disease Active 07-06 00:00: 00 Overview: Formattin g of this note might be different from the original. LGSIL in 2021 needs repeat pap smear in 2022. 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 Disease Active 4-12 00:00: 00 [facility] Tetrahydro cannabinol (THC) use disorder, mild, abuse Tetrahydro cannabinol (THC) use disorder, mild, abuse Disease Resolve d 5-10 00:00: 00 2022-12-25 00:00:00 2022-12-25 13:59:24 [facility] Chronic hypertensi on with superimpos ed preeclamps ia Chronic hypertensi on with superimpos ed preeclamps ia Disease Resolve d 2021-02 0-08 00:00: 00 2022-01-20 00:00:00 2022-01-20 14:17:40 [facility] Supervisio n of high risk , antepartum Supervisio n of high risk , antepartum Disease Resolve d 5-05 00:00: 00 2022-01-20 00:00:00 2022-01-20 14:17:35 [facility] GBS (group B Streptococ cus carrier), +RV culture, 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 Will need ABX in labor. [facility] Single liveborn, born in hospital, delivered by vaginal delivery Single liveborn, born in hospital, delivered by vaginal delivery Disease Resolve d 2021-02 0-09 00:00: 00 2021-12-22 00:00:00 2021-12-22 07:58:27 [facility] Morbid obesity with body mass index of 40.0-49.9 Morbid obesity with body mass index of 40.0-49.9 Disease Resolve d 2021-02 0-08 00:00: 00 2021-12-22 00:00:00 2021-12-22 15:59:51 [facility] Severe pre-eclamp shena in third trimester Severe pre-eclamp shena in third trimester Disease Resolve d 2021-02 0-08 00:00: 00 2021-12-22 00:00:00 2021-12-22 07:58:22 [facility] Elevated blood pressure reading without diagnosis of hypertensi on Elevated blood pressure reading without diagnosis of hypertensi on Disease Resolve d 9-08 00:00: 00 2021-12-22 00:00:00 2021-12-22 07:58:07 [facility] Proteinuri a affecting in third trimester Proteinuri a affecting in third trimester Disease Resolve d 2021-0 9-08 00:00: 00 2021-12-22 00:00:00 2021-12-22 07:58:17 [facility] Intractabl e nausea and vomiting Intractabl e nausea and vomiting Disease Resolve d 2021-0 7-05 00:00: 00 2021-12-22 00:00:00 2021-12-22 07:58:09 [facility] Urinary tract infection without hematuria, site unspecifie d Urinary tract infection without hematuria, site unspecifie d Disease Resolve d 0 6-02 00:00: 00 2021-12-22 00:00:00 2021-12-22 07:57:57 [facility] Nausea and vomiting during Nausea and vomiting during Disease Resolve d 2021-0 5-10 00:00: 00 2021-12-22 00:00:00 2021-12-22 07:58:11 [facility] Nausea and vomiting during Nausea and vomiting during Disease Resolve d 2021-0 5-10 00:00: 00 2021-12-22 00:00:00 2021-12-22 07:58:11 [facility] Primigravi da in second trimester Primigravi da in second trimester Disease Resolve d 2021-0 5-05 00:00: 00 2021-12-22 00:00:00 2021-12-22 07:58:15 [facility] Obesity in Obesity in Disease Resolve d 2021-0 5-05 00:00: 00 2021-12-22 00:00:00 2021-12-22 07:58:13 [facility] Chronic hypertensi on affecting Chronic hypertensi on affecting Disease Resolve d 2021-0 4-24 00:00: 00 2021-12-22 00:00:00 2021-12-22 07:58:04 [facility] BMI 40.0-44.9, adult BMI 40.0-44.9, adult Disease Resolve d 2021-0 4-23 00:00: 00 2021-12-22 00:00:00 2021-12-22 15:59:13 [facility] 15 weeks gestation of 15 weeks gestation of Disease Resolve d 2021-0 4-12 00:00: 00 2021-12-22 00:00:00 2021-12-22 07:58:01 [facility] Hyperemesi s Hyperemesi s Disease Resolve d 2021-0 5-10 00:00: 00 2021-11-26 00:00:00 2021-11-26 09:09:11 [facility] Hyperbilir ubinemia Hyperbilir ubinemia Disease Resolve d 2021-0 4-25 00:00: 00 2021-11-26 00:00:00 2021-11-26 09:09:06 [facility] Hypomagnes emia Hypomagnes emia Disease Resolve d 2021-0 4-25 00:00: 00 2021-11-26 00:00:00 2021-11-26 09:09:05 [facility] Hypocalcem ia Hypocalcem ia Disease Resolve d 2021-0 4-25 00:00: 00 2021-11-26 00:00:00 2021-11-26 09:09:03 [facility] Hypokalemi a Hypokalemi a Disease Resolve d 2021-0 4-12 00:00: 00 2021-11-26 00:00:00 2021-11-26 09:09:30 [facility] Hyponatrem ia Hyponatrem ia Disease Resolve d 2021-0 4-12 00:00: 00 2021-11-26 00:00:00 2021-11-26 09:09:33 [facility] Tachycardi a Tachycardi a Disease Resolve d 2021-0 4-12 00:00: 00 2021-11-26 00:00:00 2021-11-26 09:09:30 [facility] Nausea and vomiting in prior to 22 weeks gestation Nausea and vomiting in prior to 22 weeks gestation Disease Resolve d -12 00:00: 00 2021-11-26 00:00:00 2021-11-26 09:09:43 [facility] Nausea and vomiting in prior to 22 weeks gestation Nausea and vomiting in prior to 22 weeks gestation Disease Resolve d 12 00:00: 00 2021-11-26 00:00:00 2021-11-26 09:09:43 [facility] Allergies, Adverse Reactions, Alerts Allergy Name Allergy Type Status Severity Reaction(s) Onset Date Inactive Date Treating Clinician Comments Source Egg Propensi ty to adverse reaction s Active Nausea and/or Vomiting 06-29 00:00: 00 [facility] EGG DRUG INGREDI Active N/V 06-29 00:00: 00 [facility] Metoclop ramide Drug Allergy Active Extra pyramidal effects 05-31 00:00: 00 [facility] METOCLOP RAMIDE DRUG INGREDI Active Med EP Effects 05-31 00:00: 00 [facility] Family History Family Member Diagnosis Comments Start Date Stop Date Sourc e Natural mother Diabetes Unive [facility] Natural mother Heart Unive [facility] Social History Social Habit Start Date Stop Date Quantity Comments Source ASSERTION 2021-03-26 00:00:00 Not [facility] of tobacco use Current smoker [facility] Alcoholic beverage intake 2024-04-16 00:00:00 2024-04-16 00:00:00 Current drinker of alcohol (finding) [facility] Alcohol Comment 2023-11-26 00:00:00 2023-11-26 00:00:00 ocassional [facility] Tobacco use and exposure 2023-11-26 00:00:00 2023-11-26 00:00:00 Smokeless tobacco non-user [facility] History of Social function 2023-11-22 00:00:00 2023-11-22 00:00:00 [facility] Alcohol intake 2023-06-21 00:00:00 2023-06-21 00:00:00 Ex-drinker (finding) [facility] Exposure to SARS-CoV-2 (event) 2022-01-10 00:00:00 2022-01-20 14:04:00 Not sure [facility] Tobacco Comment 2021-09-15 00:00:00 2021-09-15 00:00:00 marijuana,no nicotine stopped for [facility] Sex assigned at 1995 00:00:00 1995 00:00:00 [facility] Smoking Status Start Date Stop Date Source Ex-smoker 2023-11-26 00:00:00 2023-11-26 [facility]ations Ordered Medication Name Filled Medication Name Start Date Stop Date Current Medication? Ordering Clinician Indication Dosage Frequency Signature (SIG) Comments Components Source SERTraline 50 mg tablet 05-27 00:00: 00 Yes [id number] 50mg Take 1 tablet by mouth in the morning. [facility] ramelteon 8 mg tablet 05-27 00:00: 00 Yes [id number] 8mg Take 1 tablet by mouth at bedtime. [facility] doxepin 10 mg capsule 3-14 00:00: 00 05-27 00:00 :00 No [id number] 10mg Take 1 capsule by mouth at bedtime. [facility] SERTraline 25 mg tablet 3-14 00:00: 00 05-27 00:00 :00 No [id number] 25mg Take 1 tablet by mouth in the morning. [facility] ondansetron 4 mg disintegrat ing tablet 04-16 00:00: 00 Yes [id number] 4mg Take 1 tablet by mouth every 8 (eight) hours as needed for Nausea and Vomiting (N/V). [facility] naproxen (NAPROSYN) tablet 500 mg 04-12 11:15: 00 04-12 11:05 :00 No 500mg 500 mg, Oral, Once, 1 dose, On 04/12/24 at 0515, Routine [facility] butalbital- acetaminoph en-caff (ESGIC) 50-325-40 mg tablet 1 tablet 04-12 11:00: 00 04-12 11:05 :00 No 1{tbl} 1 tablet, Oral, ONCE, 1 dose, On 04/12/24 at 0500, RACHAEL [facility] chlorphenir amine (CHLORTABS) 4 mg tablet 04-12 00:00: 00 04-16 00:00 :00 No [id number] 4mg Take 1 tablet by mouth every 6 (six) hours as needed for Allergies. [facility] methylPREDN ISolone (MEDROL, MARCO ANTONIO,) 4 mg tablets 04-12 00:00: 00 04-16 00:00 :00 No [id number] Take by mouth SEE-INSTRU CTIONS. follow package directions [facility] phentermine -topiramate (QSYMIA) 7.5-46 mg per capsule 2- 00:00: 00 Yes [id number] 104 1{capsu le} Take 1 capsule by mouth in the morning. Start 3.75mg qAM x 14 days; then increase to 7.5mg qAM. [facility] phentermine -topiramate (QSYMIA) 3.75-23 mg per capsule - 00:00: 00 04-15 05:59 :00 Yes [id number] 104 1{capsu le} Take 1 capsule by mouth in the morning for 14 days. [facility] zolpidem 5 mg tablet 2- 00:00: 00 Yes [id number] 5mg Take 1 tablet by mouth at bedtime as needed for Insomnia. [facility] pantoprazol e 40 mg EC tablet 2- 00:00: 00 Yes [id number] 40mg Take 1 tablet by mouth in the morning. [facility] HYDROcodone -acetaminop hen (NORCO) 10-325 mg tablet 1 tablet 03-16 09:30: 00 03-16 08:29 :00 No 1{tbl} 1 tablet, Oral, ONCE, 1 dose, On 03/16/24 at 0330, Routine [facility] cephALEXin (KEFLEX) capsule 500 mg 03-16 08:30: 00 03-16 08:29 :00 No 500mg 500 mg, Oral, ONCE, 1 dose, On 03/16/24 at 0230, RACHAEL, Reason for Anti-Infec tive: Documented Infection, Documented Infection Site: HEENT, Duration of Therapy: Once (ED) [facility] cephALEXin 500 mg capsule 03-16 00:00: 00 03-24 05:59 :00 No [id number] 500mg Take 1 capsule by mouth 4 (four) times daily for 7 days. [facility] indomethaci n 50 mg capsule 03-16 00:00: 00 03-24 05:59 :00 No [id number] 50mg Take 1 capsule by mouth in the morning and 1 capsule at noon and 1 capsule in the evening. Take with meals. Do all this for 7 days. [facility] tirzepatide , weight loss, 5 mg/0.5 mL subcutaneou s injection 03-05 00:00: 00 Yes [id number] 104 After 2.5mg qWeek x 4 Weeks, then increase to 5mg qWeek [facility] tirzepatide 2.5 mg/0.5 mL subcutaneou s injection pen 03-05 00:00: 00 04-16 00:00 :00 No [id number] 104 2.5mg inject 2.5 mg under the skin weekly. Start 2.5mg qWeek x 4 Weeks, then increase to 5mg qWeek x 4 Weeks, then increase to 7.5mg qWeek x 4 Weeks, the increase to 10mg qWeek. [facility] phentermine -topiramate 3.75-23 mg per capsule 03-05 00:00: 00 03-13 05:59 :00 No [id number] 104 1{capsu le} Take 1 capsule by mouth in the morning for 7 days. [facility] zolpidem 5 mg tablet - 00:00: 00 03-28 00:00 :00 No [id number] 5mg Take 1 tablet by mouth at bedtime as needed for Insomnia. [facility] phentermine -topiramate (QSYMIA) 3.75-23 mg per capsule 02-26 00:00: 00 03-05 00:00 :00 No [id number] 104 1{capsu le} Take 1 capsule by mouth in the morning. [facility] ondansetron (ZOFRAN-ODT ) disintegrat ing tablet 4 mg 02-21 09:45: 00 02-21 08:46 :00 No 4mg 4 mg, Oral, ONCE, 1 dose, On Sun02/22/24 at 0345, RACHAEL [facility] cefTRIAXone (ROCEPHIN) 1,000 mg in water for injection, sterile 10 mL IV Push 02-21 08:30: 00 02-21 08:31 :00 No 1000mg 1,000 mg, Intravenou s, ONCE, 1 dose, On Sun02/22/24 at 0230, 10 mL, Reason for Anti-Infec tive: Empiric Therapy for Suspected Infection, Empiric Therapy Site: Urine, Duration of therapy: Once (ED) [facility] iopamidol (ISOVUE 370-500 mL) injection 80 mL 02-21 08:30: 00 02-21 08:30 :00 No [id number] 80mL 80 mL, Intravenou s, ONCE, 1 dose, On Sun02/22/24 at 0230, Routine [facility] maalox/diph enhydrAMINE :lidocaine2 %viscous 1:1:1: suspension (COMPOUNDED ) 02-21 07:45: 00 02-21 07:36 :00 No 15mL 15 mL, Oral, ONCE, 1 dose, On Sun02/22/24 at 0145, RACHAEL [facility] NaCl 0.9% (NS) bolus infusion 1,000 mL 02-21 06:45: 00 02-21 08:11 :00 No 1000mL at 999 mL/hr, 1,000 mL, IV Infusion, ONCE, 1 dose, On Sun02/22/24 at 0045, RACHAEL [facility] morpHINE (4 mg/mL) injection 4 mg 02-21 06:00: 02-21 06:13 :00 No 4mg 4 mg, Slow IV Push, ONCE, 1 dose, On Sun02/22/24 at 0000, STAT [facility] ondansetron (ZOFRAN (PF)) injection 8 mg 02-21 06:00: 00 02-21 06:17 :00 No 8mg 8 mg, Slow IV Push, ONCE, 1 dose, On Sun02/22/24 at 0000, Administer over 2-5 Minutes, 4 mL [facility] cefdinir 300 mg capsule 02-21 00:00: 00 03-01 05:59 :00 No [id number] 300mg Take 1 capsule by mouth every 12 (twelve) hours for 7 days. [facility] ondansetron 4 mg disintegrat ing tablet 02-21 00:00: 00 02-26 00:00 :00 No [id number] 4mg Take 1 tablet by mouth every 8 (eight) hours as needed for Nausea and Vomiting (N/V). [facility] acetaminoph en (TYLENOL EXTRA STRENGTH) 500 mg tablet 2023-02 00:00: 00 02-26 00:00 :00 No [id number] 1000mg Take 2 tablets by mouth every 8 (eight) hours for 15 days. [facility] ibuprofen 800 mg tablet 2023-02 00:00: 00 02-26 00:00 :00 No [id number] 800mg Take 1 tablet by mouth every 8 (eight) hours for 15 days. [facility] HYDROcodone -acetaminop hen (NORCO 5) tablet 1 tablet 2023-02 18:30: 00 01-28 19:00 :00 No 1{tbl} 1 tablet, Oral, ONCE, 1 dose, On Sun01/29/24 at 1230, Routine, PACU [facility] lactated ringers IV infusion 1,000 mL 2023-02 18:30: 00 01-28 22:20 :16 No 1000mL at 50 mL/hr, 1,000 mL, IV Infusion, CONTINUOUS , Starting on Sun01/29/24 at 1230, Until Sun01/29/24 at 1620, Routine, PACU [facility] HYDROmorphO ne (DILAUDID) injection 0.2 mg 2023-02 18:19: 17 01-28 22:20 :16 No .2mg 0.2 mg, Slow IV Push, Q5MIN PRN, 10 doses, Starting on Sun01/29/24 at 1219, Until Sun01/29/24 at 1620, Routine, Pain (scale 7-10), PACU, Is this medication approved by a Faculty level provider? Yes, human resources team member approving Restricted medication : RADHA HURST [facility] FENTanyl (PF) (SUBLIMAZE) injection 25 mcg 2023-02 18:19: 17 01-28 22:20 :16 No 25ug 25 mcg, Slow IV Push, Q5MIN PRN, 4 doses, Starting on Sun01/29/24 at 1219, Until Sun01/29/24 at 1620, Routine, Pain Scale 4-6, PACU [facility] ondansetron (ZOFRAN (PF)) injection 4 mg 2023-02 18:19: 17 01-28 22:20 :16 No 4mg 4 mg, Slow IV Push, PRN, 1 dose, Starting on Sun01/29/24 at 1219, Until Sun01/29/24 at 1620, Administer over 2-5 Minutes, 2 mL, PACU [facility] bupivacaine -epinephrin e-pf (SENSORCAIN E W/EPINEPHRI NE) 0.25 %-1:200,000 30 mL, lidocaine 1% (PF) (XYLOCAINE) 30 mL 2023-02 16:57: 00 01-28 18:29 :17 No PRN, Starting on Sun01/29/24 at 1057, Intra-op [facility] sodium chloride 0.9 % irrigation solution 2023-02 16:56: 00 01-28 18:29 :17 No PRN, Starting on Sun01/29/24 at 1056, Until Sun01/29/24 at 1229, Intra-op [facility] acetaminoph en (TYLENOL) 325 mg tablet 2023-02 00:00: 00 02-05 05:59 :00 No [id number] 650mg Take 2 tablets by mouth every 6 (six) hours for 7 days. [facility] ibuprofen 800 mg tablet 2023-02 00:00: 00 02-05 05:59 :00 No [id number] 800mg Take 1 tablet by mouth every 6 (six) hours for 7 days. [facility] traMADoL 50 mg tablet 2023-02 00:00: 00 02-05 05:59 :00 No [id number] 50mg Take 1 tablet by mouth every 8 (eight) hours for 7 days. Indication s: acute pain, chronic pain [facility] HYDROcodone -acetaminop hen 5-325 mg tablet 2023-02 00:00: 00 02-05 05:59 :00 No [id number] 1{tbl} Take 1 tablet by mouth every 6 (six) hours as needed for Pain (scale 7-10) for up to 7 days. Indication s: acute pain [facility] phentermine 37.5 mg tablet 2023-02 00:00: 00 02-26 00:00 :00 No [id number] 104 37.5mg Take 1 tablet by mouth daily with breakfast. [facility] zolpidem 5 mg tablet 2023-02 00:00: 00 02-26 00:00 :00 No [id number] 5mg Take 1 tablet by mouth at bedtime as needed for Insomnia. [facility] ondansetron 8 mg tablet 2023-02 00:00: 00 02-26 00:00 :00 No [id number] 8mg Take 1 tablet by mouth every 8 (eight) hours as needed for Nausea and Vomiting (N/V). [facility] ketorolac (TORADOL) injection 30 mg 2023-02 11:30: 00 01-11 10:39 :00 No 30mg 30 mg, Slow IV Push, ONCE, 1 dose, On 01/12/24 at 0530, Routine [facility] fentanyl PF (SUBLIMAZE (PF)) injection 50 mcg 2023-02 11:15: 00 01-11 11:15 :00 No 50ug 50 mcg, Slow IV Push, ONCE, 1 dose, On 01/12/24 at 0515, Routine [facility] ondansetron (ZOFRAN (PF)) injection 4 mg 2023-02 10:30: 00 01-11 10:29 :00 No 4mg 4 mg, Slow IV Push, ONCE, 1 dose, On 01/12/24 at 0430, Administer over 2-5 Minutes, 2 [facility] (SUBLIMAZE (PF)) injection 50 mcg 2023-02 10:30: 00 01-11 10:40 :00 No 50ug 50 mcg, Slow IV Push, ONCE, 1 dose, On 01/12/24 at 0430, RACHAEL [facility] ondansetron (ZOFRAN (PF)) injection 4 mg 2023-02 10:15: 00 01-11 10:07 :00 No 4mg 4 mg, Slow IV Push, ONCE, 1 dose, On 01/12/24 at 0415, Administer over 2-5 Minutes, 2 mL [facility] [facility] traMADoL (ULTRAM) 50 mg tablet 2023-02 00:00: 00 02-26 00:00 :00 No [id number] 50mg Take 1 tablet by mouth every 6 (six) hours as needed for Pain (scale 7-10). Indication s: acute pain [facility] dicyclomine 20 mg tablet 2023-02 00:00: 00 02-26 00:00 :00 No [id number] 20mg Take 1 tablet by mouth every 6 (six) hours as needed for Abdominal pain. [facility] ondansetron (ZOFRAN) 4 mg tablet 2023-02 00:00: 00 01-27 00:00 :00 No [id number] 4mg Take 1 tablet by mouth every 8 (eight) hours as needed for Nausea and Vomiting (N/V). [facility] ondansetron 8 mg tablet 2023-02 00:00: 00 01-24 00:00 :00 No [id number] 8mg Take 1 tablet by mouth every 8 (eight) hours as needed for Nausea and Vomiting (N/V). [facility] ondansetron 4 mg disintegrat ing tablet 2023-02 00:00: 00 01-10 00:00 :00 No [id number] 4mg Take 1 tablet by mouth every 8 (eight) hours as needed for Nausea and Vomiting (N/V). [facility] phentermine 37.5 mg tablet 2023-02 00:00: 00 01-24 00:00 :00 No [id number] 104 37.5mg Take 1 tablet by mouth daily with breakfast. [facility] zolpidem 5 mg tablet 2023-02 00:00: 00 01-24 00:00 :00 No [id number] 5mg Take 1 tablet by mouth at bedtime as needed for Insomnia. [facility] ondansetron 4 mg disintegrat ing tablet 2023-02 00:00: 00 01-09 00:00 :00 No [id number] 4mg Take 1 tablet by mouth every 8 (eight) hours as needed for Nausea and Vomiting (N/V). [facility] ondansetron 4 mg tablet 2023-02 00:00: 00 01-10 00:00 :00 No [id number] 4mg Take 1 tablet by mouth every 8 (eight) hours as needed for Nausea and Vomiting (N/V). [facility] TRAZODONE 100 mg tablet 2023-02 00:00: 00 02-26 00:00 :00 No [id number] 100mg TAKE 1 TABLET BY MOUTH EVERYDAY AT BEDTIME [facility] pantoprazol e 40 mg EC tablet 11-18 00:00: 00 03-28 00:00 :00 No [id number] 40mg Take 1 tablet by mouth in the morning. [facility] phentermine 37.5 mg tablet 11-18 00:00: 12-24 00:00 :00 No [id number] 104 37.5mg Take 1 tablet by mouth daily with breakfast. [facility] zolpidem 5 mg tablet 11-18 00:00: 12-24 00:00 :00 No [id number] 5mg Take 1 tablet by mouth at bedtime as needed for Insomnia. [facility] proMETHazin e (PHENERGAN) 12.5 mg in NS 50 mL IV piggyback (CNR) 11-17 15:30: 00 11-17 15:49 :00 No 12.5mg 12.5 mg, IV Piggyback, at 200 mL/hr Administer over 15 Minutes, ONCE, 1 dose, [facility]18[facility]23 [facility] 1030[facility] ([facility] mg/mL) injection 4 mg 11-17 15:30: 00 11-17 15:34 :00 No 4mg 4 mg, Slow IV Push, ONCE, 1 dose, On 11/18/23 at 1030, STAT [facility] ketorolac (TORADOL) injection 30 mg 11-17 15:00: 00 11-17 14:09 :00 No 30mg 30 mg, Slow IV Push, ONCE, 1 dose, On 11/18/23 at 1000, [facility] famotidine (PEPCID (PF)) injection 20 mg 11-17 14:15: 00 11-17 14:09 :00 No 20mg 20 mg, Slow IV Push, ONCE, 1 dose, On 11/18/23 at 0915, [facility] iopamidol (ISOVUE 370-500 mL) injection 100 mL 11-17 13:30: 00 11-17 13:45 :00 No [id number] 100mL 100 mL, Intravenou s, ONCE, 1 dose, On Sun11/18/23 at 0845, Routine [facility] NaCl 0.9% (NS) IV infusion 1,000 mL 11-17 13:00: 00 11-17 15:15 :00 No 1000mL at 999 mL/hr, Intravenou s, ONCE, 1 dose, On Sun11/18/23 at 0800, [facility] proMETHazin e (PHENERGAN) 12.5 mg in NS 50 mL IV piggyback (CNR) 11-17 12:30: 00 11-17 13:33 :00 No 12.5mg 12.5 mg, IV Piggyback, at 200 mL/hr Administer over 15 Minutes, ONCE, 1 dose, On Sun11/18/23 at 0730, [facility] fent[facility] PF (SUBLIMAZE (PF)) injection 100 mcg 11-17 11:15: 00 11-17 11:16 :00 No 100ug 100 mcg, Slow IV Push, ONCE, 1 dose, On Sun11/18/23 at 0615, Routine [facility] ondansetron (ZOFRAN (PF)) injection 8 mg 11-17 11:00: 00 11-17 11:10 :00 No 8mg 8 mg, Slow IV Push, ONCE, 1 dose, On Sun11/18/23 at 0600, [facility] sodium chloride (NS) injection 5 mL 11-17 10:51: 45 Yes 5mL 5 mL, Intravenou s, PRN, Starting on Sun11/18/23 at 0551, Until Discontinu ed, Routine, IV line flushing [facility] proMETHazin e 25 mg tablet 11-17 00:00: 00 02-26 00:00 :00 No [id number] 25mg Take 1 tablet by mouth every 6 (six) hours as needed for Nausea and Vomiting (N/V). [facility] traMADoL 50 mg tablet 11-17 00:00: 00 01-28 00:00 :00 No [id number] 50mg Take 1 tablet by mouth every 6 (six) hours as needed (pain). Indication s: acute pain [facility] zolpidem 5 mg tablet 11-17 00:00: 00 11-17 00:00 :00 No [id number] 5mg Take 1 tablet by mouth at bedtime as needed for Insomnia. [facility] KCL (KLOR-CON M20) tablet 20 mEq 11-07 19:30: 00 11-07 19:56 :00 No 20meq 20 mEq, Oral, ONCE, 1 dose, On [place] 11/08/23 at 1430, [facility] proMETHazin e (PHENERGAN) 12.5 mg in NS 50 mL IV piggyback (CNR) 11-07 17:45: 00 11-07 18:53 :00 No 12.5mg 12.5 mg, IV Piggyback, at 200 mL/hr Administer over 15 Minutes, ONCE, 1 dose, On [place] 11/08/23 at 1245, [facility] ondansetron (ZOFRAN (PF)) injection 4 mg 11-07 16:30: 00 11-07 16:38 :00 No 4mg 4 mg, Slow IV Push, ONCE, 1 dose, On [place] 11/08/23 at 1130, [facility] famotidine (PEPCID (PF)) injection 20 mg 11-07 16:30: 00 11-07 16:38 :00 No 20mg 20 mg, Slow IV Push, ONCE, 1 dose, On [place] 11/08/23 at 1130, [facility] NaCl 0.9% (NS) bolus infusion 1,000 mL 11-07 16:30: 00 11-07 19:53 :00 No 1000mL at 999 mL/hr, 1,000 mL, IV Infusion, ONCE, 1 dose, On [place] 11/08/23 at 1130, [facility] morpHINE (4 mg/mL) injection 4 mg 11-07 15:45: 00 11-07 18:39 :00 No 4mg 4 mg, Slow IV Push, ONCE, 1 dose, On [place] 11/08/23 at 1045, [facility]ACHAEL [facility] ondansetron 4 mg disintegrat ing tablet 11-07 00:00: 00 11-12 04:59 :00 No [id number] 4mg Take 1 tablet by mouth every 8 (eight) hours as needed for Nausea and Vomiting (N/V) for up to 4 days. [facility] zolpidem 5 mg tablet 10-18 00:00: 00 11-15 00:00 :00 No [id number] 5mg Take 1 tablet by mouth at bedtime as needed for Insomnia. [facility] ergocalcife rol, vitamin d2, (VITAMIN D2) 1,250 mcg (50,000 unit) capsule 10-15 00:00: 00 Yes [id number] 95228T Take 1 capsule by mouth weekly. [facility] phentermine 37.5 mg tablet 10-15 00:00: 00 11-18 00:00 :00 No [id number] 37.5mg Take 1 tablet by mouth daily with breakfast. [facility] ergocalcife rol, vitamin d2, (VITAMIN D2) 1,250 mcg (50,000 unit) capsule 10-02 00:00: 00 10-14 00:00 :00 No [id number] 54869R Take 1 capsule by mouth weekly. [facility] zolpidem 5 mg tablet 09-12 00:00: 00 10-15 00:00 :00 No [id number] 5mg Take 1 tablet by mouth at bedtime as needed for Insomnia. [facility] phentermine 37.5 mg tablet 2024-0 7-25 00:00: 00 10-14 00:00 :00 No [id number] 37.5mg Take 1 tablet by mouth daily with breakfast. [facility] phentermine 37.5 mg tablet 08-05 00:00: 00 09-11 00:00 :00 No [id number] 37.5mg Take 1 tablet by mouth daily with breakfast. [facility] zolpidem 5 mg tablet 08-05 00:00: 00 09-11 00:00 :00 No [id number] 5mg Take 1 tablet by mouth at bedtime as needed for Insomnia. [facility] traZODone 100 mg tablet 07-24 00:00: 00 12-09 00:00 :00 No [id number] 100mg Take 1 tablet by mouth at bedtime. [facility] acetaminoph en (TYLENOL) tablet 650 mg 06-20 17:30: 00 06-20 17:25 :00 No 650mg 650 mg, Oral, ONCE, 1 dose, On Sun06/21/23 at 1230, [facility] sulfamethox azole-trime thoprim 800-160 mg per tablet 06-20 00:00: 00 08-05 00:00 :00 No [id number] 1{tbl} Take 1 tablet by mouth every 12 (twelve) hours. [facility] phentermine 37.5 mg tablet 4-09 00:00: 00 08-05 00:00 :00 No [id number] 37.5mg Take 1 tablet by mouth daily with breakfast. [facility] traZODone 100 mg tablet 0 3-04 00:00: 00 07-24 00:00 :00 No [id number] 100mg Take 1 tablet by mouth at bedtime. [facility] phentermine 37.5 mg tablet 2-22 00:00: 00 05-28 00:00 :00 No [id number] 37.5mg Take 1 tablet by mouth daily with breakfast. [facility] zolpidem 5 mg tablet 2-15 00:00: 00 08-05 00:00 :00 No [id number] 5mg Take 1 tablet by mouth at bedtime as needed for Insomnia. [facility] phentermine 37.5 mg tablet 03-02 00:00: 00 04-11 00:00 :00 No [id number] 37.5mg Take 1 tablet by mouth daily with breakfast. [facility] zolpidem 5 mg tablet 02-20 00:00: 00 04-05 00:00 :00 No [id number] 5mg Take 1 tablet by mouth at bedtime as needed for Insomnia. [facility] phentermine 37.5 mg tablet 2022-02 00:00: 00 03-02 00:00 :00 No [id number] 37.5mg Take 1 tablet by mouth daily with breakfast. [facility] traZODone 100 mg tablet 2022-02 00:00: 00 04-22 00:00 :00 No [id number] 100mg Take 1 tablet by mouth at bedtime. [facility] phentermine 37.5 mg tablet 2022-02 00:00: 00 01-26 00:00 :00 No [id number] 37.5mg Take 1 tablet by mouth daily with breakfast. [facility] zolpidem 5 mg tablet 2022-02 00:00: 00 02-19 00:00 :00 No [id number] 5mg Take 1 tablet by mouth at bedtime as needed for Insomnia. [facility] TRAZODONE 50 mg tablet 2022-02 00:00: 00 01-24 00:00 :00 No [id number] 50mg TAKE 1 TABLET BY MOUTH EVERYDAY AT BEDTIME [facility] ramelteon 8 mg tablet 2022-02 1-16 00:00: 00 01-24 00:00 :00 No [id number] 8mg Take 1 tablet by mouth at bedtime. [facility] Doxepin 6 mg Tab 2022-02-09 00:00: 00 01-04 00:00 :00 No [id number] 6mg Take 6 mg by mouth at bedtime. [facility] ergocalcife rol, vitamin d2, (VITAMIN D2) 1,250 mcg (50,000 unit) capsule 2022-02 00:00: 00 09-30 00:00 :00 No [id number] Take 1 capsule by mouth weekly. [facility] traZODone 50 mg tablet 2022-02 00:00: 00 01-16 00:00 :00 No [id number] 50mg Take 1 tablet by mouth at bedtime. [facility] medroxyPROG ESTERone (DEPO-PROVE RA) syringe 150 mg 2021-02 21:15: 00 01-20 20:41 :00 No [id number] 150mg [facility] NIFEdipine ER 30 mg tablet 2021-02 00:00: 00 01-20 00:00 :00 No [id number] 30mg Take 1 tablet by mouth in the morning. [facility] NIFEdipine ER tablet 30 mg 2021-02 0- 04:00: 00 Yes 30mg 30 mg, Oral, DAILY, First dose on 11/27/21 at 2300, Until Discontinu ed, Routine [facility] vitamin w/FA tablet 2021-02 0-10 00:00: 00 01-20 00:00 :00 No [id number] 1{tbl} Take 1 tablet by mouth in the morning. [facility] docusate 100 mg capsule 2021-02 0-10 00:00: 00 01-20 00:00 :00 No [id number] 200mg Take 2 capsules by mouth once daily as needed for Constipati on. [facility] ferrous sulfate 325 mg (65 mg iron) tablet 2021-02 0-10 00:00: 00 01-20 00:00 :00 No [id number] 325mg Take 1 tablet by mouth in the morning and 1 tablet in the evening. [facility] ibuprofen 600 mg tablet 2021-02 00:00: 00 01-20 00:00 :00 No [id number] 600mg Take 1 tablet by mouth every 6 (six) hours as needed (Pain). Take with food or milk. [facility] D5W 0.45% NaCl (1/2NS) IV infusion 1,000 mL 2021-02 19:38: 00 Yes 1000mL at 50 mL/hr, 1,000 mL, IV Infusion, CONTINUOUS , Starting on 11/27/21 at 1445, Until Discontinu ed, Routine [facility] HYDROcodone -acetaminop hen (NORCO 5) 5-325 mg tablet 1 tablet 2021-02 12:41: 25 Yes 1{tbl} 1 tablet, Oral, Q6HPRN, Starting on 11/27/21 at 0741, Until Discontinu ed, Routine, Pain (scale 7-10) [facility] ibuprofen (IBU) tablet 600 mg 2021-02 12:41: 25 Yes 600mg 600 mg, Oral, Q6HPRN, Starting on 11/27/21 at 0741, Until Discontinu ed, Routine, Pain (scale 4-6) [facility] acetaminoph en (TYLENOL) tablet 650 mg 2021-02 12:41: 25 Yes 650mg 650 mg, Oral, Q6HPRN, Starting on 11/27/21 at 0741, Until Discontinu ed, Routine, Pain (scale 1-3) [facility] diphenhydrA MINE (BENADRYL) tablet 25 mg 2021-02 12:41: 25 Yes 25mg 25 mg, Oral, Q6HPRN, Starting on 11/27/21 at 0741, Until Discontinu ed, Routine, Sleep, Itching [facility] ondansetron (ZOFRAN (PF)) injection 4 mg 2021-02 12:41: 25 Yes 4mg 4 mg, Slow IV Push, Q8HPRN, Starting on 11/27/21 at 0741, Until Discontinu ed, Routine, Nausea and Vomiting (N/V) [facility] simethicone (GAS RELIEF (SIMETHICON E)) chewable tablet 160 mg 2021-02 12:41: 25 Yes 160mg 160 mg, Oral, PC+HSPRN, Starting on 11/27/21 at 0741, Until Discontinu ed, Routine, Gas [facility] docusate (COLACE) capsule 200 mg 2021-02 12:41: 25 Yes 200mg 200 mg, Oral, QDAILYPRN, Starting on 11/27/21 at 0741, Until Discontinu ed, Routine, Constipati on [facility] magnesium hydroxide (MILK OF MAGNESIA) 400 mg/5 mL suspension 30 mL 2021-02 12:41: 25 Yes 30mL 30 mL, Oral, QDAILYPRN, Starting on 11/27/21 at 0741, Until Discontinu ed, Routine, Constipati on [facility] benzocaine- menthol (DERMOPLAST ) 20-0.5 % topical spray 2021-02 12:41: 25 Yes Topical, PRN, Starting on 11/27/21 at 0741, Until Discontinu ed, Routine, Perineum discomfort [facility] calcium gluconate 100 mg/mL (10%) injection 1,000 mg 2021-02 12:40: 21 Yes 1000mg 1,000 mg, Slow IV Push, PRN - SEE INSTRUCTIO NS, Starting on Sun11/27/21 at 0740, Until Discontinu ed, Routine, magnesium toxicity [facility] magnesium sulfate 4 mEq/mL (50 %) injection 32.48 mEq 2021-02 12:40: 21 Yes 4g 32.48 mEq (4 g), Slow IV Push, PRN - SEE INSTRUCTIO NS, Starting on Sun11/27/21 at 0740, Until Discontinu ed, Routine, For seizure activity (patient not on magnesium sulfate) [facility] magnesium sulfate 4 mEq/mL (50 %) injection 16.24 mEq 2021-02 12:40: 21 Yes 2g 16.24 mEq (2 g), Slow IV Push, PRN - SEE INSTRUCTIO NS, 2 doses, Starting on Sun11/27/21 at 0740, Until Discontinu ed, Routine, For seizure activity (patient already on magnesium sulfate) [facility] labetaloL (NORMODYNE) injection 20 mg [...] Hypertensi ve Emergency in [Order 4 End] [facility] oxytocin (PITOCIN) 30 units in NS 500 mL IV infusion 2021-02 02:10: 24 11-27 12:40 :54 No 2mU/min at 2-40 mL/hr, IV Infusion, TITRATE, Starting on 11/26/21 at 2110, Until [place] 11/27/21 at 0740, Routine [facility] penicillin g pot in dextrose 3 [...] ion of therapy: 72 hours [facility] fentaNYL-ro pivacaine 2 mcg/mL-0.1 % (PF) in NS 200 mL epidural infusion RTU 2021-02 20:46: 00 11-27 13:52 :31 No Epidural, ONCE INTRA PROCEDURE, Starting on 11/26/21 at 1546, Until [place] 11/27/21 at 0852, Routine, Intra-op [facility] lidocaine-e pinephrine (XYLOCAINE W/EPINEPHRI NE) 1.5 %-1:200,000 injection 2021-02 20:43: 00 Yes Epidural, ONCE INTRA PROCEDURE, Starting on 11/26/21 at 1543, Until Discontinu ed, Routine, Intra-op [facility] penicillin g potassium 5 Million Units in NaCl 0.9% (NS) 100 mL MINI-BAG 2021-02 18:15: 00 11-26 19:13 :00 No 510 5 Million Units, IV Piggyback, ONCE, 1 dose, On 11/26/21 at 1315, Administer over 60 Minutes, 100 mL
Reas on for Anti-Infec tive: Empiric Non-Surgic al Prophylaxi s
Durat ion of therapy: 72 hours [facility] NaCl 0.9% (NS) IV infusion 1,000 mL 2021-02 008 18:00: 00 11-27 12:40 :54 No 1000mL at 50 mL/hr, IV Infusion, CONTINUOUS , Starting on 11/26/21 at 1300, Until 11/27/21 at 0740, Routine [facility] oxytocin (PITOCIN) 30 units in NS 500 mL IV infusion 2021-02 0 14:31: 25 11-27 02:11 :24 No 2mU/min at 2-40 mL/hr, IV Infusion, TITRATE, Starting on 11/26/21 at 0931, Until 11/26/21 at 2111, Routine [facility] FENTanyl PF (SUBLIMAZE (PF)) injection 100 mcg 2021-02 13:50: 58 11-27 12:40 :54 No 100ug 100 mcg, Slow IV Push, Q1HPRN, Starting on 11/26/21 at 0850, Until 11/27/21 at 0740, Routine, Pain (scale 4-6), Pain (scale 7-10) [facility] misoprostol (CYTOTEC) quarter-tab let 25 mcg 2021-02 13:45: 00 11-26 13:22 :00 No 25ug 25 mcg, Vaginal, ONCE, 1 dose, On 11/26/21 at 0845, Routine [facility] butalbital- acetaminoph en-caff (ESGIC) 50-325-40 mg tablet 1 tablet 2021-02 09:45: 00 11-26 08:57 :00 No 1{tbl} 1 tablet, Oral, ONCE NOW, 1 dose, On 11/26/21 at 0445, Routine [facility] magnesium sulfate in water for injection 20 gram/500 mL (4 %) IV infusion 2021-02 09:00: 00 Yes 2g/h 2 g/hr (50 mL/hr), IV Infusion, CONTINUOUS , Starting on 11/26/21 at 0400, Until Discontinu ed, Routine [facility] D5W 0.45% NaCl (1/2NS) IV infusion 1,000 mL 2021-02 09:00: 00 11-27 12:40 :54 No 1000mL at 75 mL/hr, 1,000 mL, IV Infusion, CONTINUOUS , Starting on 11/26/21 at 0400, Until 11/27/21 at 0740, Routine [facility] promethazin e 6.25 mg/5 mL solution 9-21 00:00: 00 11-28 00:00 :00 No [id number] 12.5mg Take 10 mL by mouth every 4 (four) hours as needed for Nausea and Vomiting (N/V). [facility] promethazin e 6.25 mg/5 mL solution -30 00:00: 00 11-09 00:00 :00 No [id number] 12.5mg Take 10 mL by mouth every 4 (four) hours as needed for Nausea and Vomiting (N/V). [facility] promethazin e 6.25 mg/5 mL solution 8-11 00:00: 00 10-18 00:00 :00 No [id number] 12.5mg Take 10 mL by mouth every 4 (four) hours as needed for Nausea and Vomiting (N/V). [facility] promethazin e 6.25 mg/5 mL solution 6-23 00:00: 00 09-15 00:00 :00 No [id number] 12.5mg Take 10 mL by mouth every 4 (four) hours as needed for Nausea and Vomiting (N/V). [facility] proMETHazin e 25 mg tablet 5-29 00:00: 00 09-15 00:00 :00 No [id number] 25mg Take 1 tablet by mouth every 6 (six) hours as needed for Nausea and Vomiting (N/V). [facility] promethazin e 6.25 mg/5 mL solution 5-06 00:00: 00 06-29 00:00 :00 No [id number] 12.5mg Take 10 mL by mouth every 4 (four) hours as needed for Nausea and Vomiting (N/V). [facility] vit 33-iron-fol ic-dha (SELECT-OB + DHA) 29 mg iron-1 mg -250 mg combo pack 5-05 00:00: 00 07-17 00:00 :00 No [id number] 1{packe t} Take 1 Packet by mouth daily. [facility] proMETHazin e 25 mg suppository 06-22 00:00: 00 09-15 00:00 :00 No [id number] 25mg Insert 1 Suppositor y into rectum every 4 (four) hours as needed for Nausea and Vomiting (N/V). [facility] Immunizations Ordered Immunization Name Filled Immunization Name Date Status Comments Source HPV9 2022-12-25 00:00:00 Completed [facility] HPV9 2022-12-25 00:00:00 Completed [facility] HPV9 2022-12-25 00:00:00 Completed [facility] HPV9 2022-12-25 00:00:00 Completed [facility] HPV9 2022-12-25 00:00:00 Completed [facility] HPV9 2022-12-25 00:00:00 Completed [facility] HPV9 2022-12-25 00:00:00 Completed [facility] TDAP 2021-09-29 00:00:00 Completed [facility] TDAP 2021-09-29 00:00:00 Completed [facility] TDAP 2021-09-29 00:00:00 Completed [facility] TDAP 2021-09-29 00:00:00 Completed [facility] TDAP 2021-09-29 00:00:00 Completed [facility] TDAP 2021-09-29 00:00:00 Completed [facility] TDAP 2021-09-29 00:00:00 Completed [facility] TDAP 2021-09-29 00:00:00 Completed [facility] TDAP 2021-09-29 00:00:00 Completed [facility] TDAP 2021-09-29 00:00:00 Completed [facility] TDAP 2021-09-29 00:00:00 Completed [facility] TDAP 2021-09-29 00:00:00 Completed [facility] TDAP 2021-09-29 00:00:00 Completed [facility] TDAP 2021-09-29 00:00:00 Completed [facility] TDAP 2021-09-29 00:00:00 Completed [facility] TDAP 2021-09-29 00:00:00 Completed [facility] TDAP 2021-09-29 00:00:00 Completed [facility] TDAP 2021-09-29 00:00:00 Completed [facility] TDAP 2021-09-29 00:00:00 Completed [facility] TDAP 2021-09-29 00:00:00 Completed [facility] TDAP 2021-09-29 00:00:00 Completed [facility] TDAP 2021-09-29 00:00:00 Completed [facility] TDAP 2021-09-29 00:00:00 Completed [facility] TDAP 2021-09-29 00:00:00 Completed [facility] TDAP 2009-10-06 00:00:00 Completed [...] Trivalent 1997-11-23 00:00:00 Completed TDAP Unknown Completed [facility] TDAP Unknown Completed [facility] TDAP Unknown Completed [facility] TDAP Unknown Completed [facility] TDAP Unknown Completed [facility] TDAP Unknown Completed [facility] DTaP, Unspecified Formulation Unknown Completed [facility] HEPATITIS A Unknown Completed [facility] Hep B, Adol or Pedi Dosage Unknown Completed [facility] HIB 4 Dose Schedule Unknown Completed [facility] Haemophilus influenzae type b vaccine, conjugate unspecified formulation Unknown Completed [facility] HPV Unknown Completed [facility] Meningococcal Polysaccharide (groups A, C, Y and W-135) conjugate vaccine (MCV4P) Unknown Completed [facility] MMR Unknown Completed [facility] IPV Unknown Completed [facility] Poliovirus, Live, Oral, Trivalent Unknown Completed [facility] HPV9 Unknown Completed [facility] HEPATITIS A Unknown Completed [facility] Haemophilus influenzae type b vaccine, conjugate unspecified formulation Unknown Completed [facility] HPV Unknown Completed [facility] Meningococcal Polysaccharide (groups A, C, Y and W-135) conjugate vaccine (MCV4P) Unknown Completed [facility] HPV9 Unknown Completed [facility] TDAP Unknown Completed [facility] DTaP, Unspecified Formulation Unknown Completed [facility] Hep B, Adol or Pedi Dosage Unknown Completed [facility] HIB 4 Dose Schedule Unknown Completed [facility] MMR Unknown Completed [facility] IPV Unknown Completed [facility] Poliovirus, Live, Oral, Trivalent Unknown Completed [facility] TDAP Unknown Completed [facility] DTaP, Unspecified Formulation Unknown Completed [facility] HEPATITIS A Unknown Completed [facility] Hep B, Adol or Pedi Dosage Unknown Completed [facility] HIB 4 Dose Schedule Unknown Completed [facility] Haemophilus influenzae type b vaccine, conjugate unspecified formulation Unknown Completed [facility] HPV Unknown Completed [facility] Meningococcal Polysaccharide (groups A, C, Y and W-135) conjugate vaccine (MCV4P) Unknown Completed [facility] MMR Unknown Completed [facility] IPV Unknown Completed [facility] Poliovirus, Live, Oral, Trivalent Unknown Completed [facility] HPV9 Unknown Completed [facility] TDAP Unknown Completed [facility] DTaP, Unspecified Formulation Unknown Completed [facility] HEPATITIS A Unknown Completed [facility] Hep B, Adol or Pedi Dosage Unknown Completed [facility] HIB 4 Dose Schedule Unknown Completed [facility] Haemophilus influenzae type b vaccine, conjugate unspecified formulation Unknown Completed [facility] HPV Unknown Completed [facility] Meningococcal Polysaccharide (groups A, C, Y and W-135) conjugate vaccine (MCV4P) Unknown Completed [facility] MMR Unknown Completed [facility] IPV Unknown Completed [facility] Poliovirus, Live, Oral, Trivalent Unknown Completed [facility] HPV9 Unknown Completed [facility] TDAP Unknown Completed [facility] DTaP, Unspecified Formulation Unknown Completed [facility] HEPATITIS A Unknown Completed [facility] Hep B, Adol or Pedi Dosage Unknown Completed [facility] HIB 4 Dose Schedule Unknown Completed [facility] Haemophilus influenzae type b vaccine, conjugate unspecified formulation Unknown Completed [facility] HPV Unknown Completed [facility] Meningococcal Polysaccharide (groups A, C, Y and W-135) conjugate vaccine (MCV4P) Unknown Completed [facility] MMR Unknown Completed [facility] IPV Unknown Completed [facility] Poliovirus, Live, Oral, Trivalent Unknown Completed [facility] HPV9 Unknown Completed [facility] TDAP Unknown Completed [facility] DTaP, Unspecified Formulation Unknown Completed [facility] HEPATITIS A Unknown Completed [facility] Hep B, Adol or Pedi Dosage Unknown Completed [facility] HIB 4 Dose Schedule Unknown Completed [facility] Haemophilus influenzae type b vaccine, conjugate unspecified formulation Unknown Completed [facility] HPV Unknown Completed [facility] Meningococcal Polysaccharide (groups A, C, Y and W-135) conjugate vaccine (MCV4P) Unknown Completed [facility] MMR Unknown Completed [facility] IPV Unknown Completed [facility] Poliovirus, Live, Oral, Trivalent Unknown Completed [facility] HPV9 Unknown Completed [facility] HEPATITIS A Unknown Completed [facility] Haemophilus influenzae type b vaccine, conjugate unspecified formulation Unknown Completed [facility] HPV Unknown Completed [facility] Meningococcal Polysaccharide (groups A, C, Y and W-135) conjugate vaccine (MCV4P) Unknown Completed [facility] HPV9 Unknown Completed [facility] TDAP Unknown Completed [facility] DTaP, Unspecified Formulation Unknown Completed [facility] Hep B, Adol or Pedi Dosage Unknown Completed [facility] HIB 4 Dose Schedule Unknown Completed [facility] MMR Unknown Completed [facility] IPV Unknown Completed [facility] Poliovirus, Live, Oral, Trivalent Unknown Completed [facility] TDAP Unknown Completed [facility] DTaP, Unspecified Formulation Unknown Completed [facility] HEPATITIS A Unknown Completed [facility] Hep B, Adol or Pedi Dosage Unknown Completed [facility] HIB 4 Dose Schedule Unknown Completed [facility] Haemophilus influenzae type b vaccine, conjugate unspecified formulation Unknown Completed [facility] HPV Unknown Completed [facility] Meningococcal Polysaccharide (groups A, C, Y and W-135) conjugate vaccine (MCV4P) Unknown Completed [facility] MMR Unknown Completed [facility] IPV Unknown Completed [facility] Poliovirus, Live, Oral, Trivalent Unknown Completed [facility] HPV9 Unknown Completed [facility] TDAP Unknown Completed [facility] DTaP, Unspecified Formulation Unknown Completed [facility] HEPATITIS A Unknown Completed [facility] Hep B, Adol or Pedi Dosage Unknown Completed [facility] HIB 4 Dose Schedule Unknown Completed [facility] Haemophilus influenzae type b vaccine, conjugate unspecified formulation Unknown Completed [facility] HPV Unknown Completed [facility] Meningococcal Polysaccharide (groups A, C, Y and W-135) conjugate vaccine (MCV4P) Unknown Completed [facility] MMR Unknown Completed [facility] IPV Unknown Completed [facility] Poliovirus, Live, Oral, Trivalent Unknown Completed [facility] HPV9 Unknown Completed [facility] TDAP Unknown Completed [facility] DTaP, Unspecified Formulation Unknown Completed [facility] HEPATITIS A Unknown Completed [facility] Hep B, Adol or Pedi Dosage Unknown Completed [facility] HIB 4 Dose Schedule Unknown Completed [facility] Haemophilus influenzae type b vaccine, conjugate unspecified formulation Unknown Completed [facility] HPV Unknown Completed [facility] Meningococcal Polysaccharide (groups A, C, Y and W-135) conjugate vaccine (MCV4P) Unknown Completed [facility] MMR Unknown Completed [facility] IPV Unknown Completed [facility] Poliovirus, Live, Oral, Trivalent Unknown Completed [facility] HPV9 Unknown Completed [facility] TDAP Unknown Completed [facility] DTaP, Unspecified Formulation Unknown Completed [facility] HEPATITIS A Unknown Completed [facility] Hep B, Adol or Pedi Dosage Unknown Completed [facility] HIB 4 Dose Schedule Unknown Completed [facility] Haemophilus influenzae type b vaccine, conjugate unspecified formulation Unknown Completed [facility] HPV Unknown Completed [facility] Meningococcal Polysaccharide (groups A, C, Y and W-135) conjugate vaccine (MCV4P) Unknown Completed [facility] MMR Unknown Completed [facility] IPV Unknown Completed [facility] Poliovirus, Live, Oral, Trivalent Unknown Completed [facility] HPV9 Unknown Completed [facility] HEPATITIS A Unknown Completed [facility] Haemophilus influenzae type b vaccine, conjugate unspecified formulation Unknown Completed [facility] HPV Unknown Completed [facility] Meningococcal Polysaccharide (groups A, C, Y and W-135) conjugate vaccine (MCV4P) Unknown Completed [facility] HPV9 Unknown Completed [facility] TDAP Unknown Completed [facility] DTaP, Unspecified Formulation Unknown Completed [facility] Hep B, Adol or Pedi Dosage Unknown Completed [facility] HIB 4 Dose Schedule Unknown Completed [facility] MMR Unknown Completed [facility] IPV Unknown Completed [facility] Poliovirus, Live, Oral, Trivalent Unknown Completed [facility] TDAP Unknown Completed [facility] DTaP, Unspecified Formulation Unknown Completed [facility] HEPATITIS A Unknown Completed [facility] Hep B, Adol or Pedi Dosage Unknown Completed [facility] HIB 4 Dose Schedule Unknown Completed [facility] Haemophilus influenzae type b vaccine, conjugate unspecified formulation Unknown Completed [facility] HPV Unknown Completed [facility] Meningococcal Polysaccharide (groups A, C, Y and W-135) conjugate vaccine (MCV4P) Unknown Completed [facility] MMR Unknown Completed [facility] IPV Unknown Completed [facility] Poliovirus, Live, Oral, Trivalent Unknown Completed [facility] HPV9 Unknown Completed [facility] TDAP Unknown Completed [facility] DTaP, Unspecified Formulation Unknown Completed [facility] HEPATITIS A Unknown Completed [facility] Hep B, Adol or Pedi Dosage Unknown Completed [facility] HIB 4 Dose Schedule Unknown Completed [facility] Haemophilus influenzae type b vaccine, conjugate unspecified formulation Unknown Completed [facility] HPV Unknown Completed [facility] Meningococcal Polysaccharide (groups A, C, Y and W-135) conjugate vaccine (MCV4P) Unknown Completed [facility] MMR Unknown Completed [facility] IPV Unknown Completed [facility] Poliovirus, Live, Oral, Trivalent Unknown Completed [facility] HPV9 Unknown Completed [facility] TDAP Unknown Completed [facility] DTaP, Unspecified Formulation Unknown Completed [facility] HEPATITIS A Unknown Completed [facility] Hep B, Adol or Pedi Dosage Unknown Completed [facility] HIB 4 Dose Schedule Unknown Completed [facility] Haemophilus influenzae type b vaccine, conjugate unspecified formulation Unknown Completed [facility] HPV Unknown Completed [facility] Meningococcal Polysaccharide (groups A, C, Y and W-135) conjugate vaccine (MCV4P) Unknown Completed [facility] MMR Unknown Completed [facility] IPV Unknown Completed [facility] Poliovirus, Live, Oral, Trivalent Unknown Completed [facility] HPV9 Unknown Completed [facility] TDAP Unknown Completed [facility] DTaP, Unspecified Formulation Unknown Completed [facility] HEPATITIS A Unknown Completed [facility] Hep B, Adol or Pedi Dosage Unknown Completed [facility] HIB 4 Dose Schedule Unknown Completed [facility] Haemophilus influenzae type b vaccine, conjugate unspecified formulation Unknown Completed [facility] HPV Unknown Completed [facility] Meningococcal Polysaccharide (groups A, C, Y and W-135) conjugate vaccine (MCV4P) Unknown Completed [facility] MMR Unknown Completed [facility] IPV Unknown Completed [facility] Poliovirus, Live, Oral, Trivalent Unknown Completed [facility] HPV9 Unknown Completed [facility] HEPATITIS A Unknown Completed [facility] Haemophilus influenzae type b vaccine, conjugate unspecified formulation Unknown Completed [facility] HPV Unknown Completed [facility] Meningococcal Polysaccharide (groups A, C, Y and W-135) conjugate vaccine (MCV4P) Unknown Completed [facility] HPV9 Unknown Completed [facility] TDAP Unknown Completed [facility] DTaP, Unspecified Formulation Unknown Completed [facility] HEPATITIS A Unknown Completed [facility] Hep B, Adol or Pedi Dosage Unknown Completed [facility] HIB 4 Dose Schedule Unknown Completed [facility] Haemophilus influenzae type b vaccine, conjugate unspecified formulation Unknown Completed [facility] HPV Unknown Completed [facility] Meningococcal Polysaccharide (groups A, C, Y and W-135) conjugate vaccine (MCV4P) Unknown Completed [facility] MMR Unknown Completed [facility] IPV Unknown Completed [facility] Poliovirus, Live, Oral, Trivalent Unknown Completed [facility] HPV9 Unknown Completed [facility] TDAP Unknown Completed [facility] DTaP, Unspecified Formulation Unknown Completed [facility] HEPATITIS A Unknown Completed [facility] Hep B, Adol or Pedi Dosage Unknown Completed [facility] HIB 4 Dose Schedule Unknown Completed [facility] Haemophilus influenzae type b vaccine, conjugate unspecified formulation Unknown Completed [facility] HPV Unknown Completed [facility] Meningococcal Polysaccharide (groups A, C, Y and W-135) conjugate vaccine (MCV4P) Unknown Completed [facility] MMR Unknown Completed [facility] IPV Unknown Completed [facility] Poliovirus, Live, Oral, Trivalent Unknown Completed [facility] HPV9 Unknown Completed [facility] TDAP Unknown Completed [facility] DTaP, Unspecified Formulation Unknown Completed [facility] HEPATITIS A Unknown Completed [facility] Hep B, Adol or Pedi Dosage Unknown Completed [facility] HIB 4 Dose Schedule Unknown Completed [facility] Haemophilus influenzae type b vaccine, conjugate unspecified formulation Unknown Completed [facility] HPV Unknown Completed [facility] Meningococcal Polysaccharide (groups A, C, Y and W-135) conjugate vaccine (MCV4P) Unknown Completed [facility] MMR Unknown Completed [facility] IPV Unknown Completed [facility] Poliovirus, Live, Oral, Trivalent Unknown Completed [facility] HPV9 Unknown Completed [facility] TDAP Unknown Completed [facility] DTaP, Unspecified Formulation Unknown Completed [facility] HEPATITIS A Unknown Completed [facility] Hep B, Adol or Pedi Dosage Unknown Completed [facility] HIB 4 Dose Schedule Unknown Completed [facility] Haemophilus influenzae type b vaccine, conjugate unspecified formulation Unknown Completed [facility] HPV Unknown Completed [facility] Meningococcal Polysaccharide (groups A, C, Y and W-135) conjugate vaccine (MCV4P) Unknown Completed [facility] MMR Unknown Completed [facility] IPV Unknown Completed [facility] Poliovirus, Live, Oral, Trivalent Unknown Completed [facility] HPV9 Unknown Completed [facility] TDAP Unknown Completed [facility] DTaP, Unspecified Formulation Unknown Completed [facility] Hep B, Adol or Pedi Dosage Unknown Completed [facility] HIB 4 Dose Schedule Unknown Completed [facility] MMR Unknown Completed [facility] IPV Unknown Completed [facility] Poliovirus, Live, Oral, Trivalent Unknown Completed [facility] TDAP Unknown Completed [facility] DTaP, Unspecified Formulation Unknown Completed [facility] HEPATITIS A Unknown [facility] Hep B, Adol or Pedi Dosage Unknown Completed [facility] HIB 4 Dose Schedule Unknown Completed [facility] Haemophilus influenzae type b vaccine, conjugate unspecified formulation Unknown Completed [facility] HPV Unknown Completed [facility] Meningococcal Polysaccharide (groups A, C, Y and W-135) conjugate vaccine (MCV4P) Unknown Completed [facility] MMR Unknown Completed [facility] IPV Unknown Completed [facility] Poliovirus, Live, Oral, Trivalent Unknown Completed [facility] HPV9 Unknown Completed [facility] TDAP Unknown Completed [facility] DTaP, Unspecified Formulation Unknown Completed [facility] HEPATITIS A Unknown Completed [facility] Hep B, Adol or Pedi Dosage Unknown Completed [facility] HIB 4 Dose Schedule Unknown Completed [facility] Haemophilus influenzae type b vaccine, conjugate unspecified formulation Unknown Completed [facility] HPV Unknown Completed [facility] Meningococcal Polysaccharide (groups A, C, Y and W-135) conjugate vaccine (MCV4P) Unknown Completed [facility] MMR Unknown Completed [facility] IPV Unknown Completed [facility] Poliovirus, Live, Oral, Trivalent Unknown Completed [facility] HPV9 Unknown Completed [facility] TDAP Unknown Completed [facility] DTaP, Unspecified Formulation Unknown Completed [facility] HEPATITIS A Unknown Completed [facility] Hep B, Adol or Pedi Dosage Unknown Completed [facility] HIB 4 Dose Schedule Unknown Completed [facility] Haemophilus influenzae type b vaccine, conjugate unspecified formulation Unknown Completed [facility] HPV Unknown Completed [facility] Meningococcal Polysaccharide (groups A, C, Y and W-135) conjugate vaccine (MCV4P) Unknown Completed [facility] MMR Unknown Completed [facility] IPV Unknown Completed [facility] Poliovirus, Live, Oral, Trivalent Unknown Completed [facility] HPV9 Unknown Completed [facility] TDAP Unknown Completed [facility] DTaP, Unspecified Formulation Unknown Completed [facility] HEPATITIS A Unknown Completed [facility] Hep B, Adol or Pedi Dosage Unknown Completed [facility] HIB 4 Dose Schedule Unknown Completed [facility] Haemophilus influenzae type b vaccine, conjugate unspecified formulation Unknown Completed [facility] HPV Unknown Completed [facility] Meningococcal Polysaccharide (groups A, C, Y and W-135) conjugate vaccine (MCV4P) Unknown Completed [facility] MMR Unknown Completed [facility] IPV Unknown Completed [facility] Poliovirus, Live, Oral, Trivalent Unknown Completed [facility] HPV9 Unknown Completed [facility] TDAP Unknown Completed [facility] DTaP, Unspecified Formulation Unknown Completed [facility] HEPATITIS A Unknown Completed [facility] Hep B, Adol or Pedi Dosage Unknown Completed [facility] HIB 4 Dose Schedule Unknown Completed [facility] Haemophilus influenzae type b vaccine, conjugate unspecified formulation Unknown Completed [facility] HPV Unknown Completed [facility] Meningococcal Polysaccharide (groups A, C, Y and W-135) conjugate vaccine (MCV4P) Unknown Completed [facility] MMR Unknown Completed [facility] IPV Unknown Completed [facility] Poliovirus, Live, Oral, Trivalent Unknown Completed [facility] HPV9 Unknown Completed [facility] TDAP Unknown Completed [facility] DTaP, Unspecified Formulation Unknown Completed [facility] HEPATITIS A Unknown Completed [facility] Hep B, Adol or Pedi Dosage Unknown Completed [facility] HIB 4 Dose Schedule Unknown Completed [facility] Haemophilus influenzae type b vaccine, conjugate unspecified formulation Unknown Completed [facility] HPV Unknown Completed [facility] Meningococcal Polysaccharide (groups A, C, Y and W-135) conjugate vaccine (MCV4P) Unknown Completed [facility] MMR Unknown Completed [facility] IPV Unknown Completed [facility] Poliovirus, Live, Oral, Trivalent Unknown Completed [facility] HPV9 Unknown Completed [facility] TDAP Unknown Completed [facility] DTaP, Unspecified Formulation Unknown Completed [facility] HEPATITIS A Unknown Completed [facility] Hep B, Adol or Pedi Dosage Unknown Completed [facility] HIB 4 Dose Schedule Unknown Completed [facility] Haemophilus influenzae type b vaccine, conjugate unspecified formulation Unknown Completed [facility] HPV Unknown Completed [facility] Meningococcal Polysaccharide (groups A, C, Y and W-135) conjugate vaccine (MCV4P) Unknown Completed [facility] MMR Unknown Completed [facility] IPV Unknown Completed [facility] Poliovirus, Live, Oral, Trivalent Unknown Completed [facility] HPV9 Unknown Completed [facility] TDAP Unknown Completed [facility] DTaP, Unspecified Formulation Unknown Completed [facility] HEPATITIS A Unknown Completed [facility] Hep B, Adol or Pedi Dosage Unknown Completed [facility] HIB 4 Dose Schedule Unknown Completed [facility] Haemophilus influenzae type b vaccine, conjugate unspecified formulation Unknown Completed [facility] HPV Unknown Completed [facility] Meningococcal Polysaccharide (groups A, C, Y and W-135) conjugate vaccine (MCV4P) Unknown Completed [facility] MMR Unknown Completed [facility] IPV Unknown Completed [facility] Poliovirus, Live, Oral, Trivalent Unknown Completed [facility] HPV9 Unknown Completed [facility] HEPATITIS A Unknown Completed [facility] Haemophilus influenzae type b vaccine, conjugate unspecified formulation Unknown Completed [facility] HPV Unknown Completed [facility] Meningococcal Polysaccharide (groups A, C, Y and W-135) conjugate vaccine (MCV4P) Unknown Completed [facility] HPV9 Unknown Completed [facility] TDAP Unknown Completed [facility] DTaP, Unspecified Formulation Unknown Completed [facility] Hep B, Adol or Pedi Dosage Unknown Completed [facility] HIB 4 Dose Schedule Unknown Completed [facility] MMR Unknown Completed [facility] IPV Unknown Completed [facility] Poliovirus, Live, Oral, Trivalent Unknown Completed [facility] HEPATITIS A Unknown Completed [facility] Haemophilus influenzae type b vaccine, conjugate unspecified formulation Unknown Completed [facility] HPV Unknown Completed [facility] Meningococcal Polysaccharide (groups A, C, Y and W-135) conjugate vaccine (MCV4P) Unknown Completed [facility] HPV9 Unknown Completed [facility] TDAP Unknown Completed [facility] DTaP, Unspecified Formulation Unknown Completed [facility] Hep B, Adol or Pedi Dosage Unknown Completed [facility] HIB 4 Dose Schedule Unknown Completed [facility] MMR Unknown Completed [facility] IPV Unknown Completed [facility] Poliovirus, Live, Oral, Trivalent Unknown Completed [facility] HEPATITIS A Unknown Completed [facility] Haemophilus influenzae type b vaccine, conjugate unspecified formulation Unknown Completed [facility] HPV Unknown Completed [facility] Meningococcal Polysaccharide (groups A, C, Y and W-135) conjugate vaccine (MCV4P) Unknown Completed [facility] HPV9 Unknown Completed [facility] TDAP Unknown Completed [facility] DTaP, Unspecified Formulation Unknown Completed [facility] Hep B, Adol or Pedi Dosage Unknown Completed [facility] HIB 4 Dose Schedule Unknown Completed [facility] MMR Unknown Completed [facility] IPV Unknown Completed [facility] Poliovirus, Live, Oral, Trivalent Unknown Completed [facility] TDAP Unknown Completed [facility] DTaP, Unspecified Formulation Unknown Completed [facility] HEPATITIS A Unknown Completed [facility] Hep B, Adol or Pedi Dosage Unknown Completed [facility] HIB 4 Dose Schedule Unknown Completed [facility] Haemophilus influenzae type b vaccine, conjugate unspecified formulation Unknown Completed [facility] HPV Unknown Completed [facility] Meningococcal Polysaccharide (groups A, C, Y and W-135) conjugate vaccine (MCV4P) Unknown Completed [facility] MMR Unknown Completed [facility] IPV Unknown Completed [facility] Poliovirus, Live, Oral, Trivalent Unknown Completed [facility] HPV9 Unknown Completed [facility] TDAP Unknown Completed [facility] DTaP, Unspecified Formulation Unknown Completed [facility] HEPATITIS A Unknown Completed [facility] Hep B, Adol or Pedi Dosage Unknown Completed [facility] HIB 4 Dose Schedule Unknown Completed [facility] Haemophilus influenzae type b vaccine, conjugate unspecified formulation Unknown Completed [facility] HPV Unknown Completed [facility] Meningococcal Polysaccharide (groups A, C, Y and W-135) conjugate vaccine (MCV4P) Unknown Completed [facility] MMR Unknown Completed [facility] IPV Unknown Completed [facility] Poliovirus, Live, Oral, Trivalent Unknown Completed [facility] HPV9 Unknown Completed [facility] TDAP Unknown Completed [facility] DTaP, Unspecified Formulation Unknown Completed [facility] HEPATITIS A Unknown Completed [facility] Hep B, Adol or Pedi Dosage Unknown Completed [facility] HIB 4 Dose Schedule Unknown Completed [facility] Haemophilus influenzae type b vaccine, conjugate unspecified formulation Unknown Completed [facility] HPV Unknown Completed [facility] Meningococcal Polysaccharide (groups A, C, Y and W-135) conjugate vaccine (MCV4P) Unknown Completed [facility] MMR Unknown Completed [facility] IPV Unknown Completed [facility] Poliovirus, Live, Oral, Trivalent Unknown Completed [facility] HPV9 Unknown Completed [facility] TDAP Unknown Completed [facility] DTaP, Unspecified Formulation Unknown Completed [facility] HEPATITIS A Unknown Completed [facility] Hep B, Adol or Pedi Dosage Unknown Completed [facility] HIB 4 Dose Schedule Unknown Completed [facility] Haemophilus influenzae type b vaccine, conjugate unspecified formulation Unknown Completed [facility] HPV Unknown Completed [facility] Meningococcal Polysaccharide (groups A, C, Y and W-135) conjugate vaccine (MCV4P) Unknown Completed [facility] MMR Unknown Completed [facility] IPV Unknown Completed [facility] Poliovirus, Live, Oral, Trivalent Unknown Completed [facility] HPV9 Unknown Completed [facility] TDAP Unknown Completed [facility] DTaP, Unspecified Formulation Unknown Completed [facility] HEPATITIS A Unknown Completed [facility] Hep B, Adol or Pedi Dosage Unknown Completed [facility] HIB 4 Dose Schedule Unknown Completed [facility] Haemophilus influenzae type b vaccine, conjugate unspecified formulation Unknown Completed [facility] HPV Unknown Completed [facility] Meningococcal Polysaccharide (groups A, C, Y and W-135) conjugate vaccine (MCV4P) Unknown Completed [facility] MMR Unknown Completed [facility] IPV Unknown Completed [facility] Poliovirus, Live, Oral, Trivalent Unknown Completed [facility] HPV9 Unknown Completed [facility] Vital Signs Vital Name Observation Time Observation Value Comments S jeremiasce Systolic blood pressure 2024-04-16 17:18:00 110 mm[Hg] [facility] Diastolic blood pressure 2024-04-16 17:18:00 79 mm[Hg] [facility] Heart rate 2024-04-16 17:18:00 67 /min [facility] Body temperature 2024-04-16 17:18:00 36.17 Ava [facility] Respiratory rate 2024-04-16 17:18:00 18 /min [facility] Body height 2024-04-16 17:18:00 165.1 cm [facility] Body weight 2024-04-16 17:18:00 112.81 kg [facility] BMI 2024-04-16 17:18:00 41.39 kg/m2 [facility] Oxygen saturation in Arterial blood by Pulse oximetry 2024-04-16 17:18:00 100 /min [facility] Systolic blood pressure 2024-04-12 11:05:00 138 mm[Hg] [facility] Diastolic blood pressure 2024-04-12 11:05:00 90 mm[Hg] [facility] Heart rate 2024-04-12 11:05:00 92 /min [facility] Body temperature 2024-04-12 11:05:00 36.78 Ava [facility] Respiratory rate 2024-04-12 11:05:00 17 /min [facility] Oxygen saturation in Arterial blood by Pulse oximetry 2024-04-12 11:05:00 98 /min [facility] Body height 2024-04-12 10:30:00 165.1 cm [facility] Body weight 2024-04-12 10:30:00 108.863 kg [facility] BMI 2024-04-12 10:30:00 39.94 kg/m2 [facility] Systolic blood pressure 2024-03-16 08:17:00 152 mm[Hg] [facility] Diastolic blood pressure 2024-03-16 08:17:00 114 mm[Hg] [facility] Heart rate 2024-03-16 08:17:00 114 /min [facility] Body temperature 2024-03-16 08:17:00 36.78 Ava [facility] Respiratory rate 2024-03-16 08:17:00 20 /min [facility] Body height 2024-03-16 08:17:00 165.1 cm [facility] Body weight 2024-03-16 08:17:00 104.781 kg [facility] BMI 2024-03-16 08:17:00 38.44 kg/m2 [facility] Oxygen saturation in Arterial blood by Pulse oximetry 2024-03-16 08:17:00 100 /min [facility] Systolic blood pressure 2024-02-27 16:52:00 118 mm[Hg] [facility] Diastolic blood pressure 2024-02-27 16:52:00 82 mm[Hg] [facility] Heart rate 2024-02-27 16:52:00 113 /min [facility] Body temperature 2024-02-27 16:52:00 36.28 Ava [facility] Respiratory rate 2024-02-27 16:52:00 18 /min [facility] Body height 2024-02-27 16:52:00 166.4 cm [facility] Body weight 2024-02-27 16:52:00 117.164 kg [facility] BMI 2024-02-27 16:52:00 42.33 kg/m2 [facility] Oxygen saturation in Arterial blood by Pulse oximetry 2024-02-27 16:52:00 99 /min [facility] Systolic blood pressure 2024-02-22 08:00:00 172 mm[Hg] [facility] Diastolic blood pressure 2024-02-22 08:00:00 90 mm[Hg] [facility] Heart rate 2024-02-22 08:00:00 89 [facility] Body temperature 2024-02-22 08:00:00 36.89 Ava [facility] Respiratory rate 2024-02-22 08:00:00 20 /min [facility] Oxygen saturation in Arterial blood by Pulse oximetry 2024-02-22 08:00:00 100 /min [facility] Body height 2024-02-22 05:52:00 165.1 cm [facility] Body weight 2024-02-22 05:52:00 108.863 kg [facility] BMI 2024-02-22 05:52:00 39.94 kg/m2 [facility] Systolic blood pressure 2024-01-29 19:50:00 125 mm[Hg] [facility] Diastolic blood pressure 2024-01-29 19:50:00 85 mm[Hg] [facility] Heart rate 2024-01-29 19:50:00 103 /min [facility] Respiratory rate 2024-01-29 19:50:00 15 /min [facility] Oxygen saturation in Arterial blood by Pulse oximetry 2024-01-29 19:50:00 96 /min [facility] Body temperature 2024-01-29 18:30:00 36.33 Ava [facility] Body height 2024-01-21 21:15:00 165.1 cm [facility] Body weight 2024-01-21 21:15:00 122.471 kg [facility] BMI 2024-01-21 21:15:00 44.93 kg/m2 [facility] Systolic blood pressure 2024-01-29 18:35:00 127 mm[Hg] [facility] Diastolic blood pressure 2024-01-29 18:35:00 82 mm[Hg] [facility] Heart rate 2024-01-29 18:35:00 114 /min [facility] Respiratory rate 2024-01-29 18:35:00 18 /min [facility] Oxygen saturation in Arterial blood by Pulse oximetry 2024-01-29 18:35:00 100 /min [facility] Body temperature 2024-01-29 18:30:00 36.33 Ava [facility] Body height 2024-01-21 21:15:00 165.1 cm [facility] Body weight 2024-01-21 21:15:00 122.471 kg [facility] BMI 2024-01-21 21:15:00 44.93 kg/m2 [facility] Systolic blood pressure 2024-01-12 11:25:00 156 mm[Hg] [facility] Diastolic blood pressure 2024-01-12 11:25:00 110 mm[Hg] [facility] Respiratory rate 2024-01-12 11:25:00 12 /min [facility] Oxygen saturation in Arterial blood by Pulse oximetry 2024-01-12 11:25:00 97 /min [facility] Heart rate 2024-01-12 11:15:00 88 /min [facility] Body temperature 2024-01-12 09:59:00 36.5 Ava [facility] Body height 2024-01-12 09:59:00 165.1 cm [facility] Body weight 2024-01-12 09:59:00 122.471 kg [facility] BMI 2024-01-12 09:59:00 44.93 kg/m2 [facility] Systolic blood pressure 2024-01-07 17:05:00 136 mm[Hg] [facility] Diastolic blood pressure 2024-01-07 17:05:00 99 mm[Hg] [facility] Heart rate 2024-01-07 17:05:00 109 /min [facility] Oxygen saturation in Arterial blood by Pulse oximetry 2024-01-07 17:05:00 100 /min [facility] Body temperature 2024-01-07 17:02:00 36.39 Ava [facility] Respiratory rate 2024-01-07 17:02:00 18 /min [facility] Body height 2024-01-07 17:02:00 165.1 cm [facility] Body weight 2024-01-07 17:02:00 122.471 kg [facility] BMI 2024-01-07 17:02:00 44.93 kg/m2 [facility] Systolic blood pressure 2024-01-03 17:27:00 111 mm[Hg] [facility] Diastolic blood pressure 2024-01-03 17:27:00 77 mm[Hg] [facility] Heart rate 2024-01-03 17:27:00 99 /min [facility] Body temperature 2024-01-03 17:27:00 36.5 Ava [facility] Respiratory rate 2024-01-03 17:27:00 18 /min [facility] Body height 2024-01-03 17:27:00 165.1 cm [facility] Body weight 2024-01-03 17:27:00 120.203 kg [facility] BMI 2024-01-03 17:27:00 44.10 kg/m2 [facility] Oxygen saturation in Arterial blood by Pulse oximetry 2024-01-03 17:27:00 99 /min [facility] Systolic blood pressure 2023-12-24 17:35:00 118 mm[Hg] [facility] Diastolic blood pressure 2023-12-24 17:35:00 80 mm[Hg] [facility] Heart rate 2023-12-24 17:35:00 90 /min [facility] Respiratory rate 2023-12-24 17:35:00 15 /min [facility] Oxygen saturation in Arterial blood by Pulse oximetry 2023-12-24 17:35:00 96 /min [facility] Body temperature 2023-12-24 17:05:00 36 Ava [facility] Body height 2023-12-24 16:37:00 165.1 cm [facility] Body weight 2023-12-24 16:37:00 122.154 kg [facility] BMI 2023-12-24 16:37:00 44.81 kg/m2 [facility] Systolic blood pressure 2023-12-24 17:05:00 100 mm[Hg] [facility] Diastolic blood pressure 2023-12-24 17:05:00 56 mm[Hg] [facility] Heart rate 2023-12-24 17:05:00 89 /min [facility] Body temperature 2023-12-24 17:05:00 36 Ava [facility] Respiratory rate 2023-12-24 17:05:00 16 /min [facility] Oxygen saturation in Arterial blood by Pulse oximetry 2023-12-24 17:05:00 94 /min [facility] Body height 2023-12-24 16:37:00 [facility].1 [facility] 2023-12-24 16:37:00 122.154 kg [facility] BMI 2023-12-24 16:37:00 44.81 kg/m2 [facility] Systolic blood pressure 2023-11-27 19:10:00 111 mm[Hg] [facility] Diastolic blood pressure 2023-11-27 19:10:00 76 mm[Hg] [facility] Heart rate 2023-11-27 19:10:00 111 /min [facility] Respiratory rate 2023-11-27 19:10:00 18 /min [facility] Body height 2023-11-27 19:10:00 165.1 cm [facility] Body weight 2023-11-27 19:10:00 124.286 kg [facility] BMI 2023-11-27 19:10:00 45.60 kg/m2 [facility] Systolic blood pressure 2023-11-26 20:40:00 112 mm[Hg] [facility] Diastolic blood pressure 2023-11-26 20:40:00 74 mm[Hg] [facility] Heart rate 2023-11-26 20:40:00 103 /min [facility] Body temperature 2023-11-26 20:40:00 36.39 Ava [facility] Body height 2023-11-26 20:40:00 165.1 cm [facility] Body weight 2023-11-26 20:40:00 123.923 kg [facility] BMI 2023-11-26 20:40:00 45.46 kg/m2 [facility] Systolic blood pressure 2023-11-22 18:07:00 134 mm[Hg] [facility] Diastolic blood pressure 2023-11-22 18:07:00 89 mm[Hg] [facility] Heart rate 2023-11-22 18:07:00 126 /min [facility] Body temperature 2023-11-22 18:07:00 36.28 Ava [facility] Respiratory rate 2023-11-22 18:07:00 18 /min [facility] Body height 2023-11-22 18:07:00 165.1 cm [facility] Body weight 2023-11-22 18:07:00 125.102 kg [facility] BMI 2023-11-22 18:07:00 45.90 kg/m2 [facility] Oxygen saturation in Arterial blood by Pulse oximetry 2023-11-22 18:07:00 98 /min [facility] Systolic blood pressure 2023-11-19 14:38:00 127 mm[Hg] [facility] Diastolic blood pressure 2023-11-19 14:38:00 86 mm[Hg] [facility] Heart rate 2023-11-19 14:38:00 107 /min [facility] Body temperature 2023-11-19 14:38:00 36.33 Aav [facility] Respiratory rate 2023-11-19 14:38:00 18 /min [facility] Body height 2023-11-19 14:38:00 165.1 cm [facility] Body weight 2023-11-19 14:38:00 123.741 kg [facility] BMI 2023-11-19 14:38:00 45.40 kg/m2 [facility] Oxygen saturation in Arterial blood by Pulse oximetry 2023-11-19 14:38:00 98 /min [facility] Systolic blood pressure 2023-11-18 16:30:00 156 mm[Hg] [facility] Diastolic blood pressure 2023-11-18 16:30:00 113 mm[Hg] [facility] Heart rate 2023-11-18 16:30:00 88 /min [facility] Respiratory rate 2023-11-18 16:30:00 18 /min [facility] Oxygen saturation in Arterial blood by Pulse oximetry 2023-11-18 16:30:00 98 /min [facility] Body temperature 2023-11-18 10:28:00 36.72 Ava [facility] Body height 2023-11-18 10:27:00 165.1 cm [facility] Body weight 2023-11-18 10:27:00 122.471 kg [facility] BMI 2023-11-18 10:27:00 44.93 kg/m2 [facility] Systolic blood pressure 2023-11-08 20:00:00 123 mm[Hg] [facility] Diastolic blood pressure 2023-11-08 20:00:00 91 mm[Hg] [facility] Respiratory rate 2023-11-08 20:00:00 17 /min [facility] Heart rate 2023-11-08 19:00:00 75 /min [facility] Oxygen saturation in Arterial blood by Pulse oximetry 2023-11-08 19:00:00 100 /min [facility] Body temperature 2023-11-08 17:00:00 36.83 Ava [facility] Body height 2023-11-08 15:16:00 165.1 cm [facility] Body weight 2023-11-08 15:16:00 122.471 kg [facility] BMI 2023-11-08 15:16:00 44.93 kg/m2 [facility] Systolic blood pressure 2023-08-06 19:07:00 135 mm[Hg] [facility] Diastolic blood pressure 2023-08-06 19:07:00 93 mm[Hg] [facility] Heart rate 2023-08-06 19:04:00 81 /min [facility] Body temperature 2023-08-06 19:04:00 36.11 Ava [facility] Respiratory rate 2023-08-06 19:04:00 18 /min [facility] Body height 2023-08-06 19:04:00 165.1 cm [facility] Body weight 2023-08-06 19:04:00 140.66 kg [facility] BMI 2023-08-06 19:04:00 51.60 kg/m2 [facility] Oxygen saturation in Arterial blood by Pulse oximetry 2023-08-06 19:04:00 100 /min [facility] Systolic blood pressure 2023-06-21 16:24:00 156 mm[Hg] [facility] Diastolic blood pressure 2023-06-21 16:24:00 98 mm[Hg] [facility] Heart rate 2023-06-21 16:24:00 94 /min [facility] Body temperature 2023-06-21 16:24:00 37.22 Ava [facility] Respiratory rate 2023-06-21 16:24:00 16 /min [facility] Body height 2023-06-21 16:24:00 165.1 cm [facility] Body weight 2023-06-21 16:24:00 127.007 kg [facility] BMI 2023-06-21 16:24:00 46.59 kg/m2 [facility] Oxygen saturation in Arterial blood by Pulse oximetry 2023-06-21 16:24:00 100 /min [facility] Systolic blood pressure 2023-01-24 20:58:00 132 mm[Hg] [facility] Diastolic blood pressure 2023-01-24 20:58:00 96 mm[Hg] [facility] Heart rate 2023-01-24 20:56:00 95 /min [facility] Body temperature 2023-01-24 20:56:00 36.67 Ava [facility] Respiratory rate 2023-01-24 20:56:00 18 /min [facility] Body height 2023-01-24 20:56:00 165.1 cm [facility] Body weight 2023-01-24 20:56:00 138.937 kg [facility] BMI 2023-01-24 20:56:00 50.97 kg/m2 [facility] Oxygen saturation in Arterial blood by Pulse oximetry 2023-01-24 20:56:00 100 /min [facility] Systolic blood pressure 2022-12-25 19:43:00 131 mm[Hg] [facility] Diastolic blood pressure 2022-12-25 19:43:00 86 mm[Hg] [facility] Heart rate 2022-12-25 19:43:00 72 /min [facility] Body temperature 2022-12-25 19:43:00 36.28 Ava [facility] Respiratory rate 2022-12-25 19:43:00 16 /min [facility] Body height 2022-12-25 19:43:00 165.1 cm [facility] Body weight 2022-12-25 19:43:00 138.347 kg [facility] BMI 2022-12-25 19:43:00 50.75 kg/m2 [facility] Oxygen saturation in Arterial blood by Pulse oximetry 2022-12-25 19:43:00 99 /min [facility] Systolic blood pressure 2022-01-20 20:03:00 135 mm[Hg] [facility] Diastolic blood pressure 2022-01-20 20:03:00 87 mm[Hg] [facility] Heart rate 2022-01-20 20:03:00 87 /min [facility] Body temperature 2022-01-20 20:03:00 36.56 Ava [facility] Respiratory rate 2022-01-20 20:03:00 17 /min [facility] Body height 2022-01-20 20:03:00 165.1 cm [facility] Body weight 2022-01-20 20:03:00 118.706 kg [facility] BMI 2022-01-20 20:03:00 43.55 kg/m2 [facility] Systolic blood pressure 2021-12-22 13:14:00 125 mm[Hg] [facility] Diastolic blood pressure 2021-12-22 13:14:00 86 mm[Hg] [facility] Heart rate 2021-12-22 13:14:00 96 /min [facility] Body temperature 2021-12-22 13:14:00 36.61 Ava [facility] Respiratory rate 2021-12-22 13:14:00 20 /min [facility] Body height 2021-12-22 13:14:00 165.1 cm [facility] Body weight 2021-12-22 13:14:00 108.41 kg [facility] BMI 2021-12-22 13:14:00 39.77 kg/m2 [facility] Systolic blood pressure 2021-11-29 12:00:00 142 mm[Hg] [facility] Diastolic blood pressure 2021-11-29 12:00:00 87 mm[Hg] [facility] Heart rate 2021-11-29 12:00:00 79 /min [facility] Body temperature 2021-11-29 12:00:00 36.72 Ava [facility] Respiratory rate 2021-11-29 12:00:00 18 /min [facility] Oxygen saturation in Arterial blood by Pulse oximetry 2021-11-29 12:00:00 100 /min [facility] Body height 2021-11-26 08:32:00 165.1 cm [facility] Body weight 2021-11-26 08:32:00 114.034 kg [facility] BMI 2021-11-26 08:32:00 41.84 kg/m2 [facility] Systolic blood pressure 2021-11-23 14:45:00 133 mm[Hg] [facility] Diastolic blood pressure 2021-11-23 14:45:00 102 mm[Hg] [facility] Heart rate 2021-11-23 14:42:00 77 /min [facility] Body temperature 2021-11-23 14:42:00 36.33 Ava [facility] Respiratory rate 2021-11-23 14:42:00 18 /min [facility] Body height 2021-11-23 14:42:00 165.1 cm [facility] Body weight 2021-11-23 14:42:00 114.17 kg [facility] BMI 2021-11-23 14:42:00 41.89 kg/m2 [facility] Systolic blood pressure 2021-11-11 15:03:00 120 mm[Hg] [facility] Diastolic blood pressure 2021-11-11 15:03:00 82 mm[Hg] [facility] Heart rate 2021-11-11 14:58:00 105 /min [facility] Body temperature 2021-11-11 14:57:00 36.33 Ava [facility] Respiratory rate 2021-11-11 14:57:00 18 /min [facility] Body height 2021-11-11 14:57:00 165.1 cm [facility] Body weight 2021-11-11 14:57:00 113.541 kg [facility] BMI 2021-11-11 14:57:00 41.65 kg/m2 [facility] Systolic blood pressure 2021-10-27 23:55:00 129 mm[Hg] [facility] Diastolic blood pressure 2021-10-27 23:55:00 76 mm[Hg] [facility] Heart rate 2021-10-27 23:55:00 88 /min [facility] Oxygen saturation in Arterial blood by Pulse oximetry 2021-10-27 23:55:00 96 /min [facility] Body temperature 2021-10-27 23:14:00 37 Ava [facility] Respiratory rate 2021-10-27 23:14:00 18 /min [facility] Body height 2021-10-27 22:26:00 165.1 cm [facility] Body weight 2021-10-27 22:26:00 111.131 kg [facility] BMI 2021-10-27 22:26:00 40.77 kg/m2 [facility] Systolic blood pressure 2021-10-27 18:08:00 140 mm[Hg] [facility] Diastolic blood pressure 2021-10-27 18:08:00 94 mm[Hg] [facility] Heart rate 2021-10-27 18:07:00 88 /min [facility] Body temperature 2021-10-27 18:07:00 35.61 Ava [facility] Respiratory rate 2021-10-27 18:07:00 18 /min [facility] Body weight 2021-10-27 18:07:00 110.224 kg [facility] BMI 2021-10-27 18:07:00 40.44 kg/m2 [facility] Systolic blood pressure 2024-03-16 08:17:00 152 mm[Hg] [facility] Diastolic blood pressure 2024-03-16 08:17:00 114 mm[Hg] [facility] Heart rate 2024-03-16 08:17:00 114 /min [facility] Body temperature 2024-03-16 08:17:00 36.78 Ava [facility] Respiratory rate 2024-03-16 08:17:00 20 /min [facility] Body height 2024-03-16 08:17:00 165.1 cm [facility] Body weight 2024-03-16 08:17:00 104.781 kg [facility] BMI 2024-03-16 08:17:00 38.44 kg/m2 [facility] Oxygen saturation in Arterial blood by Pulse oximetry 2024-03-16 08:17:00 100 /min [facility] Procedures Procedure Date / Time Performed Performing Clinician Source RAPID STREP SCREEN FOR GROUP A 2024-03-23 2 10:33:00 Singer [facility] INFLUENZA A/B RSV COVID NAAT 2024-04-12 10:33:00 Angus Dwyer [facility] DE INJECTION AA&/STRD TRIGEM INAL NERVE EACH BRANCH 2024-03-16 08:31:23 Aster Lee [facility] DE INJECTION AA&/STRD TRIGEM INAL NERVE EACH BRANCH 2024-03-16 08:31:23 Aster Lee [facility] URINE CULTURE 2024-02-22 08:11:00 Shorty Zambrano [facility] CT ABDOMEN PELVIS W CONTRAST 2024-02-22 07:32:12 Shorty Zambrano [facility] CT ABDOMEN PELVIS W CONTRAST 2024-02-22 07:32:12 Shorty Zambrano [facility] POCT TEST 2024-02-22 06:51:00 Shorty Zambrano [facility] POCT TEST 2024-02-22 06:51:00 Shorty Zambrano [facility] URINALYSIS 2024-02-22 06:48:00 Shorty Zambrano [facility] URINALYSIS 2024-02-22 06:48:00 Shorty Zambrano [facility] LIPASE 2024-02-22 06:08:00 Shorty Zambrano [facility] COMP. METABOLIC PANEL ([id number]) 2024-02-22 06:08:00 Shorty Zambrano [facility] CBC WITH DIFF 2024-02-22 06:08:00 Shorty Zambrano [facility] CBC WITH DIFF 2024-02-22 06:08:00 Shorty Zambrano [facility] COMP. METABOLIC PANEL ([id number]) 2024-02-22 06:08:00 Shorty Zambrano [facility] LIPASE 2024-02-22 06:08:00 Shorty Zambrano [facility] SURGICAL PATHOLOGY EXAM 2024-01-29 18:00:00 Eva Bryan [facility] INTUBATION 2024-01-29 16:39:00 Barbara Cartwright [facility] POCT TEST 2024-01-29 16:18:00 [facility] POCT TEST 2024-01-29 16:18:00 Gianni Lopez [facility] POCT TEST 2024-01-29 16:18:00 Gianni Lopez [facility] [address] - [place] LAPAROSCOPY SURG CHOLECYSTECTOMY 2024-01-29 16:15:00 Eva Bryan [facility] [id number] - DE LAPAROSCOPY SURG CHOLECYSTECTOMY 2024-01-29 16:15:00 Eva Bryan [facility] POCT TEST 2024-01-12 10:32:00 Caro Bauer [facility] POCT TEST 2024-01-12 10:32:00 Caro Bauer [facility] LIPASE 2024-01-12 10:06:00 Caro Bauer [facility] COMP. METABOLIC PANEL ([id number]) 2024-01-12 10:06:00 Caro Bauer [facility] CBC WITH DIFF 2024-01-12 10:06:00 Caro Bauer [facility] CBC WITH DIFF 2024-01-12 10:06:00 Caro Bauer [facility] COMP. METABOLIC PANEL ([id number]) 2024-01-12 10:06:00 Caro Bauer [facility] LIPASE 2024-01-12 10:06:00 Caro Bauer [facility] ENDOSCOPY PROCEDURE DOCUMENTATION 2023-02 15:14:36 Doctor Unassigned, [place] [facility] EGD (ENDO) 2023-12-24 17:08:17 Jeimy [facility] EGD (ENDO) 2023-12-24 17:08:17 Jeimy [facility] SURGICAL PATHOLOGY EXAM 2023-12-24 16:57:00 Yisel Hart [facility] ESOPHAGOGASTRODUODENOSCOPY 2023-12-24 16:36:00 Yisel Hart [facility] US OVARY TORSION 2023-11-18 16:33:50 Kelly Simms [facility] URINALYSIS 2023-11-18 15:15:00 Caro Bauer [facility] CT ABDOMEN PELVIS W CONTRAST 2023-11-18 13:38:59 Caro Bauer [facility] LIPASE 2023-11-18 11:10:00 Caro Bauer [facility] TEST, SERUM 2023-11-18 11:10:00 Caro Bauer [facility] COMP. METABOLIC PANEL ([id number]) 2023-11-18 11:10:00 Caro Bauer [facility] CBC WITH DIFF 2023-11-18 11:10:00 Caro Bauer [facility] COMP. METABOLIC PANEL ([id number]) 2023-11-08 16:43:00 Tiff Isabel [facility] LIPASE 2023-11-08 16:01:00 [facility] CBC WITH DIFF 2023-11-08 16:01:00 [facility] URINALYSIS 2023-11-08 16:01:00 [facility] POCT TEST 2023-11-08 16:01:00 [facility] ZINC, SERUM 2023-08-06 19:42:00 Obi-Franklin [facility] VITAMIN B6, PLASMA 2023-08-06 19:42:00 Obi-Franklin [facility] FREE T4 2023-08-06 19:42:00 suzanne-Franklin, [facility] THYROID STIMULATING HORMONE 2023-08-06 19:42:00 Jeimy [facility] COMP. METABOLIC PANEL ([id number]) 2023-08-06 19:42:00 Obsuzanne-Franklin [facility] CBC WITH DIFF 2023-08-06 19:42:00 Obsuzanne-Franklin [facility] GLYCOSYLATED HEMOGLOBIN (A1C) 2023-08-06 19:42:00 Arun-Franklin [facility] VITAMIN D, 25-OH 2023-08-06 19:42:00 Obsuzanne-Franklin [facility] FREE T3 2023-08-06 19:42:00 Obsuzanne-Franklin [facility] POCT TEST 2023-06-21 16:30:00 Bonita Trivedi [facility] URINALYSIS 2023-06-21 16:29:00 Bonita Trivedi [facility] INSURANCE CORRESPONDENCE 2023-01-15 06:01:00 Doctor Unassigned[place] [facility] INSURANCE CORRESPONDENCE 2023-01-06 06:01:00 Doctor Unassigned, [place] [facility] HCV ANTIBODY 2022-12-25 20:30:00 Obi-Franklin, Jess [facility] GARDASIL 9 (HPV 9V) VACCINE 2022-12-25 20:04:37 Obi-Jess Reid [facility] POCT TEST 2022-01-20 20:18:00 Jacinta Voss [facility] DME/SUPPLY JUSTIFICATION 2022-01-03 06:01:00 Doctor Unassigned, [place] [facility] CBC WITH DIFF 2021-11-28 08:48:00 Adum, Vanessa Cowan [facility] CENTRAL NEURAXIAL BLOCK 2021-11-26 20:52:15 Wilver Owens [facility] HB ABO GROUPING 2021-11-26 09:30:00 Adum, Vanessa Cowan [facility] LACTATE DEHYDROGENASE 2021-11-26 09:29:00 Adum, Vanessa Cowan [facility] URIC ACID 2021-11-26 09:29:00 Adum, Vanessa oCwan [facility] COMP. METABOLIC PANEL ([id number]) 2021-11-26 09:29:00 Adum, Vanessa Cowan [facility] URINE DRUG (IMMUNOASSAY) - COMPREHENSIVE DRUG SCREEN 2021-11-26 09:29:00 Adum, Vanessa Cowan [facility] CBC WITH DIFF 2021-11-26 09:29:00 Adum, Vanessa Cowan [facility] URINALYSIS 2021-11-26 09:29:00 Adum, Vanessa Cowan [facility] HEPATITIS B SURFACE ANTIGEN 2021-11-26 09:29:00 Adum, Vanessa Cowan [facility] ADC OR THOMPSON ONLY - RPR 2021-11-26 09:29:00 Adum, Vanessa Cowan [facility] HIV 1/2 AG-AB WITH REFLEX 2021-11-26 09:29:00 Adum, Vanessa Cowan [facility] HIV 1/2 AG-AB WITH REFLEX 2021-11-26 09:29:00 Adum, Vanessa Cowan [facility] CONSENT/REFUSAL FOR DIAGNOSI S AND TREATMENT 2021-11-26 08:08:59 Doctor Unassigned, [place] [facility] POCT URINALYSIS 2021-11-23 14:56:00 Rodrick Pete [facility] POCT URINALYSIS 2021-11-11 14:58:00 Rodrick Pete [facility] CONSENT/REFUSAL FOR DIAGNOSI S AND TREATMENT 2021-10-27 22:13:12 Doctor Unassigned, [place] [facility] POCT URINALYSIS 2021-10-27 18:21:00 Rodrick Pete [facility] LAB ONLY PAP SMEAR-LIQUID BASED 20:43:00 Rodrick Pete [facility] Encounters Start Date/Time End Date/Time Encounter Type Admission Type Attending Clinicians Care Facility Care Department Encounter ID Source 2024-06-14 00:00:00 2024-06-16 09:37:02 [facility] 1.2.840.114 350.1.13.10 4.2.7.2.686 [id number] [facility] 2024-05-07 00:00:00 2024-06-07 18:15:52 Patient Secure Msg [facility] 1.2.840.114 350.1.13.10 4.2.7.2.686 [id number] [facility] 2024-05-28 10:40:00 2024-05-28 10:40:00 Outpatient R OBI-FRANKLIN , JESS OBI-FRANKLIN , [facility] [id number] [facility] 2024-05-27 00:00:00 2024-05-27 23:29:36 Patient Secure Msg Obi-Franklin , [facility]ILD[facility] 1.2.840.114 350.1.13.10 4.2.7.2.686 [id number] [facility] 2024-05-20 00:00:00 2024-05-22 09:07:10 Patient Secure Msg Obi-Jess Reid [facility] 1.2.840.114 350.1.13.10 4.2.7.2.686 [id number] [facility] 2024-04-11 00:00:00 2024-05-17 18:21:45 Patient Secure Msg [facility]bi[facility]Franklin , [facility] 1.2.840.114 350.1.13.10 4.2.7.2.686 [id number] [facility] 2024-03-18 00:00:00 2024-04-19 18:15:59 Patient Secure Msg Doctor Unassigned, [place] Doctor Unassigned, [place] [facility] 1..840.114 350.1.13.10 4.2.7.2.686 [id number] [facility] 2024-04-16 11:00:00 2024-04-16 11:53:16 Outpatient R OBI-JESS REID OBI-FRANKLIN [facility] [id number] [facility] 2024-04-16 11:00:00 2024-04-16 11:53:16 Office Visit Obi-Franklin Jess [facility] 1.2.840.114 350.1.13.10 4.2.7.2.686 [id number] [facility] 2024-04-12 04:34:00 2024-04-12 05:45:00 Emergency X ANGUS DWYER PHILLIP [facility] [id number] [facility] 2024-04-12 04:34:00 2024-04-12 05:45:00 Emergency [facility]us Dw[facility] 1.2.840.114 350.1.13.10 4.2.7.2.686 [id number] [facility] 2024-04-07 00:00:00 2024-04-07 09:53:08 Telephone Jess Munson [facility]IVO [facility]OWMAN 1.2840.114 350.1.13.10 4.2.7.2.686 [id number] [facility] 2023-12-26 00:00:00 2024-04-05 06:41:10 Orders Only Doctor Unassigned, [place] Doctor Unassigned, [place] [facility] 1.2840.114 350.1.13.10 4.2.7.2.686 [id number] [facility] 2024-03-30 00:00:00 2024-03-31 12:14:42 Patient Secure Msg Obsuzanne-Jess Reid 1.2.840.1 04104.1.1 3.104.2.7 .3.386801 .8 [id number] [facility] 2024-03-28 00:00:00 2024-03-30 12:51:45 Refill Obsuzanne-Angelo Reidma 1.2.840.1 20163.1.1 3.104.2.7 .3.482434 .8 [id number] [facility] 2024-03-28 00:00:00 2024-03-28 15:21:20 Refill Obsuzanne-Franklin Jess 1.2.840.1 67397.1.1 3.104.2.7 .3.712385 .8 [id number] [facility] 2024-03-27 13:20:00 2024-03-27 13:20:00 Outpatient R JESS MUNSON [facility] [id number] [facility] 2024-03-26 00:00:00 2024-03-26 10:49:07 Telephone Jess Munson 1.2.840.1 21197.1.1 3.104.2.7 .3.512160 .8 [id number] [facility] 2024-03-18 00:00:00 2024-03-18 10:19:58 Patient Secure Msg Jess Munson 1.2.840.1 27229.1.1 3.104.2.7 .3.435780 .8 [id number] [facility] 2024-03-17 00:00:00 2024-03-18 08:09:54 Telephone Jess Munson 1.2.840.1 49681.1.1 3.104.2.7 .3.466334 .8 [id number] [facility] 2024-03-16 02:22:00 2024-03-16 02:40:00 Emergency X ASTER LEE [facility] ERT [id number] [facility] 2024-03-16 02:22:00 2024-03-16 02:40:00 Emergency Jez Aster G 1.2.840.1 94125.1.1 3.104.2.7 .3.240289 .8 [id number] [facility] 2024-03-16 00:00:00 2024-03-16 00:00:00 Travel 1.2.840.1 69390.1.1 3.104.2.7 .3.146496 .8 1.2.840.114 350.1.13.10 4.2.7.3.698 084.8 [id number] [facility] 2024-02-11 00:00:00 2024-03-15 18:16:55 Patient Secure Msg Eva Bryan 1.2.840.1 41182.1.1 3.104.2.7 .3.355937 .8 [id number] [facility] 2024-03-10 00:00:00 2024-03-10 23:21:57 Refill Jess Munson 1.2.840.1 63317.1.1 3.104.2.7 .3.207446 .8 [id number] [facility] 2024-03-07 00:00:00 2024-03-08 10:28:33 Telephone Jess Munson 1.2.840.1 55133.1.1 3.104.2.7 .3.398103 .8 [id number] [facility] 2024-03-06 14:15:00 2024-03-06 14:15:00 Outpatient EVA DODGE [facility] [id number] [facility] 2024-03-05 00:00:00 2024-03-06 09:29:39 Telephone Jess Munson 1.2.840.1 90122.1.1 3.104.2.7 .3.045271 .8 [id number] [facility] 2024-03-04 00:00:00 2024-03-05 15:00:39 Patient Secure Msg Jess Munson 1.2.840.1 02736.1.1 3.104.2.7 .3.192837 .8 [id number] [facility] 2024-03-04 00:00:00 2024-03-04 14:51:37 Telephone Yadio ValerieJess 1.2.840.1 90449.1.1 3.104.2.7 .3.483904 .8 [id number] [facility] 2024-02-28 00:00:00 2024-03-03 16:59:48 Telephone Obi-Franklin , Jess 1.2.840.1 21332.1.1 3.104.2.7 .3.945691 .8 [id number] [facility] 2024-02-28 00:00:00 2024-02-28 13:24:25 Telephone Jess Munson 1.2.840.1 09777.1.1 3.104.2.7 .3.618459 .8 [id number] [facility] 2024-02-27 00:00:00 2024-02-27 15:55:52 Telephone Jess Munson 1.2.840.1 31703.1.1 3.104.2.7 .3.419100 .8 [id number] [facility] 2024-02-27 10:40:00 2024-02-27 11:10:59 Outpatient R JESS MUNSON [facility] [id number] [facility] 2024-02-27 10:40:00 2024-02-27 11:10:59 Office Visit Jess Munson 1.2.840.1 14504.1.1 3.104.2.7 .3.299219 .8 [id number] [facility] 2024-02-26 00:00:00 2024-02-26 00:00:00 Travel 1.2.840.1 61643.1.1 3.104.2.7 .3.740830 .8 1.2.840.114 350.1.13.10 4.2.7.3.698 [id number] [facility] 2024-02-22 00:00:00 2024-02-22 13:47:53 Telephone Jess Munson 1.2.840.1 67008.1.1 3.104.2.7 .3.882336 .8 [id number] [facility] 2024-02-21 23:55:00 2024-02-22 02:59:00 Emergency X LIONEL ZAMBRANOPARESH ZAMBRANO LIONELJOSEEGloria [facility] [id number] [facility] 2024-02-21 23:55:00 2024-02-22 02:59:00 Emergency Shorty Zambrano Anna 1.2.840.1 38854.1.1 3.104.2.7 .3.807936 .8 [id number] [facility] 2024-02-21 00:00:00 2024-02-21 08:19:30 Telephone Jess Munson 1.2.840.1 50341.1.1 3.104.2.7 .3.389956 .8 [id number] [facility] 2024-02-21 00:00:00 2024-02-21 00:00:00 Travel 1.2.840.1 80499.1.1 3.104.2.7 .3.281669 .8 1.2.840.114 350.1.13.10 4.2.7.3.698 084.8 [id number] [facility] 2024-02-11 00:00:00 2024-02-13 09:13:13 Telephone Eva Bryan 1.2.840.1 01079.1.1 3.104.2.7 .3.969898 .8 [id number] [facility] 2024-02-11 00:00:00 2024-02-11 13:15:26 Patient Secure Msg Eva Bryan 1.2.840.1 85518.1.1 3.104.2.7 .3.074525 .8 [id number] [facility] 2024-02-11 00:00:00 2024-02-11 12:46:06 Refill Jess Munson 1.2.840.1 10421.1.1 3.104.2.7 .3.052502 .8 [id number] [facility] 2024-02-08 00:00:00 2024-02-08 14:40:57 Telephone Eva Bryan 1.2.840.1 54469.1.1 3.104.2.7 .3.335674 .8 [id number] [facility] 2024-02-07 00:00:00 2024-02-08 14:24:51 Patient Secure Msg Eva Bryan 1.2.840.1 11852.1.1 3.104.2.7 .3.274453 .8 [id number] [facility] 2024-01-30 00:00:00 2024-01-31 08:09:51 Telephone Eva Bryan 1.2.840.1 80690.1.1 3.104.2.7 .3.418396 .8 [id number] [facility] 2024-01-29 08:46:00 2024-01-29 14:10:00 Outpatient R EVA BRYAN [facility] [id number] [facility] 2024-01-29 08:46:00 2024-01-29 14:10:00 Hospital Encounter Eva Bryan 1.2.840.1 29078.1.1 3.104.2.7 .3.156234 .8 [id number] [facility] 2024-01-29 10:00:00 2024-01-29 12:35:00 Surgery Eva Bryan 1.2.840.1 11846.1.1 3.104.2.7 .3.040160 .8 [id number] [facility] 2024-01-29 10:30:00 2024-01-29 12:29:00 Anesthesia Event Radha Hurst Brian 1.2.840.1 37884.1.1 3.104.2.7 .3.155266 .8 [id number] [facility] 2024-01-25 00:00:00 2024-01-28 13:50:46 Refill Jess Munson 1.2.840.1 63561.1.1 3.104.2.7 .3.493878 .8 [id number] [facility] 2024-01-21 00:00:00 2024-01-21 00:00:00 Travel 1.2.840.1 79343.1.1 3.104.2.7 .3.363436 .8 1.2.840.114 350.1.13.10 4.2.7.3.698 084.8 [id number] [facility] 2024-01-12 03:54:00 2024-01-12 05:48:00 Emergency X CARO BAUER [facility] ERT [id number] [facility] 2024-01-12 03:54:00 2024-01-12 05:48:00 Emergency Caro Bauer S 1.2.840.1 95370.1.1 3.104.2.7 .3.558312 .8 [id number] [facility] 2024-01-12 00:00:00 2024-01-12 00:00:00 Travel 1.2.840.1 53077.1.1 3.104.2.7 .3.066754 .8 1.2.840.114 350.1.13.10 4.2.7.3.698 084.8 [id number] [facility] 2024-01-11 00:00:00 2024-01-11 12:50:05 Patient Secure Msg Jess Munson 1.2.840.1 85052.1.1 3.104.2.7 .3.170652 .8 [id number] [facility] 2024-01-10 00:00:00 2024-01-11 05:46:35 Patient Secure Jess Art 1.2.840.1 39507.1.1 3.104.2.7 .3.122772 .8 [id number] [facility] 2024-01-07 11:15:00 2024-01-07 12:06:32 Outpatient R EVA BRYAN [facility] [id number] [facility] 2024-01-07 11:15:00 2024-01-07 12:06:32 Office Visit Eva Bryan 1.2.840.1 02916.1.1 3.104.2.7 .3.289419 .8 [id number] [facility] 2024-01-07 00:00:00 2024-01-07 00:00:00 Scanned Documents Doctor Unassigned, [place] 1.2.840.1 19703.1.1 3.104.2.7 .3.718978 .8 [id number] [facility] 2024-01-07 00:00:00 2024-01-07 00:00:00 Travel 1.2.840.1 84264.1.1 3.104.2.7 .3.905280 .8 1.2.840.114 350.1.13.10 4.2.7.3.698 084.8 [id number] [facility] 2023-11-30 00:00:00 2024-01-05 18:24:03 Patient Secure Jess Art [facility] 1.2.840.114 350.1.13.10 4.2.7.2.686 [id number] 044 [id number] [facility] 2024-01-05 00:00:00 2024-01-05 00:00:00 Travel 1.2.840.1 90252.1.1 3.104.2.7 .3.415419 .8 1.2.840.114 350.1.13.10 4.2.7.3.698 084.8 [id number] [facility] 2024-01-03 11:00:00 2024-01-03 11:41:02 [facility] [id number] [facility] 2024-01-03 11:00:00 2024-01-03 11:41:02 [facility] 1.2.840.114 350.1.13.10 4.2.7.2.686 [id number] 044 [id number] [facility] 2024-01-02 00:00:00 2024-01-02 08:01:22 [facility] 1.2.840.114 350.1.13.10 4.2.7.2.686 [id number] 044 [id number] [facility] 2023-12-25 00:00:00 2023-12-27 05:31:52 [facility] 1.2.840.114 350.1.13.10 4.2.7.2.686 [id number] 044 [id number] [facility] 2023-12-25 00:00:00 2023-12-25 12:23:25 Refill Yann Nayak [facility] 1.2.840.114 350.1.13.10 4.2.7.2.686 [id number] 071 [id number] [facility] 2023-12-24 00:00:00 2023-12-24 16:00:22 Patient Secure Yisel Manzanares [facility] ([facility]) 1.84.114 350.1.13.10 4.2.7.2.686 [id number] 071 [id number] [facility] 2023-12-24 09:50:00 2023-12-24 11:47:00 Outpatient R YISEL HART [facility] GIE [id number] [facility] 2023-12-24 09:50:00 2023-12-24 11:47:00 Hospital Encounter Yisel Hart [facility] 1.84.114 350.1.13.10 4.2.7.2.686 [id number] [id number] [facility] 2023-12-24 10:45:00 2023-12-24 11:15:00 Surgery Yisel Hart [facility] 1.84.114 350.1.13.10 4.2.7.2.686 [id number] 020 [id number] [facility] 2023-12-18 14:30:00 2023-12-18 14:30:00 Outpatient R KONRAD ORDOÑEZ OGECHUKWU [facility] [id number] [facility] 2023-12-18 13:00:00 2023-12-18 13:00:00 Outpatient R OBI-JESS REID OBJESS GRIMALDO [facility] [id number] [facility] 2023-12-17 00:00:00 2023-12-18 11:14:39 [address] Mun[address] [facility] BU[facility]ING 1.84.114 350.1.13.10 4.2.7.2.686 [id number] 044 [id number] [facility] 2023-12-12 08:40:00 2023-12-12 08:40:00 Outpatient R OBI-FRANKLIN , JESS OBI-FRANKLIN , JESS [facility] [id number] [facility] 2023-12-07 00:00:00 2023-12-10 08:32:14 Shefali Ordoñez Leonelmelissa [facility] PROFESSIO NAL BUILDING 1.2840.114 350.1.13.10 4.2.7.2.686 [id number] 044 [id number] [facility] 2023-11-30 00:00:00 2023-12-04 09:32:31 Patient Secure Tianna Marrero [facility] ([facility]) 1.20.114 350.1.13.10 4.2.7.2.686 [id number] 071 [id number] [facility] 2023-11-30 15:45:00 2023-11-30 15:45:00 Outpatient R ISAAC SHAY [facility] [id number] [facility] 2023-11-27 14:00:00 2023-11-27 14:37:01 Outpatient R VANESSA LEYVA VANESSA [facility] [id number] [facility] 2023-11-27 14:00:00 2023-11-27 14:37:01 Office Visit Vanessa Leyva [facility] 1.0.114 350.1.13.10 4.2.7.2.686 [id number] [facility] 2023-11-26 15:00:00 2023-11-26 15:30:00 Office Visit Jose De Jesus Medina [facility] 1.20.114 350.1.13.10 4.2.7.2.686 [id number] [facility] 2023-11-26 15:00:00 2023-11-26 15:00:00 Outpatient R JOSE DE JESUS MEDINA VIEN [facility] [id number] [facility] 2023-11-22 13:00:00 2023-11-22 13:30:00 Office Visit Tianna Mei [facility] ([facility]) 1.2.840.114 350.1.13.10 4.2.7.2.686 [id number] [id number] [facility] 2023-11-22 13:00:00 2023-11-22 13:00:00 Outpatient R TIANNA MEI ASHLEY [facility] [id number] [facility] 2023-11-20 10:00:00 2023-11-20 10:00:00 Outpatient R [facility] [id number] [facility] 2023-11-19 10:30:00 2023-11-19 10:30:00 Pattern Filer Visit 2, Adc Lab Angelo Munsonma 2, Adc Lab [facility] BU[facility] 1.2.840.114 350.1.13.10 4.2.7.2.686 [id number] [facility] 2023-11-19 09:40:00 2023-11-19 10:03:53 Outpatient R OBI-FRANKLINJESS Arceo OBI[facility]FRANKLIN , [facility] [id number] [facility] 2023-11-19 09:40:00 2023-11-19 10:03:53 Office [facility] 1.2.840.114 350.1.13.10 4.2.7.2.686 [id number] 044 [id number] [facility] 2023-11-15 00:00:00 2023-11-18 18:57:29 Refill Obi[facility]lin , [facility] 1.2.840.114 350.1.13.10 4.2.7.2.686 [id number] 044 [id number] [facility] 2023-11-16 00:00:00 2023-11-18 18:53:00 Refill Obi-Franklin , [facility] PROFESSIO NAL BUILDING 1.2840.114 350.1.13.10 4.2.7.2.686 [id number] 044 [id number] [facility] 2023-11-18 05:34:00 2023-11-18 13:08:00 Emergency KELLY [facility]UE[facility]AS [facility] E[facility] [id number] [facility] 2023-11-18 05:34:00 2023-11-18 13:08:00 Emergency Caro Bauer [facility] 1.2840.114 350.1.13.10 4.2.7.2.686 [id number] [id number] [facility] 2023-11-08 10:16:00 2023-11-08 16:16:00 Emergency La MAAMETIFF LOPEZ TIFF [facility] ERT [id number] [facility] 2023-11-08 10:16:00 2023-11-08 16:16:00 Emergency Tiff Isabel [facility] 1.2840.114 350.1.13.10 4.2.7.2.686 [id number] 084 [id number] [facility] 2023-10-16 00:00:00 2023-10-19 05:44:04 Refill Obi-Franklin , [facility] PROFESSIO NAL BUILDING 1.2840.114 350.1.13.10 4.2.7.2.686 [id number] 044 [id number] [facility] 2023-10-15 00:00:00 2023-10-16 10:48:03 Refill Obi-Franklin , [facility] PROFESSIO NAL BUILDING 1.2840.114 350.1.13.10 4.2.7.2.686 [id number] 044 [id number] [facility] 2023 09:40:00 2023 09:40:00 Outpatient R OBI-FRANKLIN , JESS OBI-FRANKLIN , [facility] [id number] [facility] 2023-10-01 00:00:00 2023-10-03 15:28:49 Refill Obi-Franklin [facility] PROFESSIO NAL BUILDING 1.2.840.114 350.1.13.10 4.2.7.2.686 [id number] 044 [id number] [facility] 2023-09-12 00:00:00 2023-09-13 13:09:32 Refill Obi-Franklin [facility] PROFESSIO NAL BUILDING 1.2.840.114 350.1.13.10 4.2.7.2.686 [id number] 044 [id number] [facility] 2023-09-05 10:40:00 2023-09-05 10:40:00 Outpatient R OBI-FRANKLIN , JESS OBI-FRANKLIN , [facility] [id number] [facility] 2023-08-13 14:40:00 2023-08-13 14:40:00 Outpatient R OBI-FRANKLIN , JESS OBI-FRANKLIN , [facility] [id number] [facility] 2023-08-06 14:30:00 2023-08-06 15:25:53 Pattern Filer Visit 2, Adc Lab [facility] 1.2.840.114 350.1.13.10 4.2.7.2.686 [id number] [facility] 2023-08-06 14:30:00 2023-08-06 14:30:00 Outpatient R OBI-FRANKLIN , JESS OBI-FRANKLIN , [facility] [id number] [facility] 2023-08-06 13:40:00 2023-08-06 14:29:31 Office [facility] BUILDING 1.2.840.114 350.1.13.10 4.2.7.2.686 [id number] 044 [id number] [facility] 2023-08-06 08:40:00 2023-08-06 08:40:00 Outpatient R OBI-FRANKLIN , JESS OBI-FRANKLIN , [facility] [id number] [facility] 2023-07-31 00:00:00 2023-08-01 12:29:54 Telephone Konrad Ordoñez [facility] BU[facility] 1.2.840.114 350.1.13.10 4.2.7.2.686 [id number] 044 [id number] [facility] 2023-07-31 00:00:00 2023-07-31 18:10:27 Refill Obi-Franklin [facility] BUILDING 1.2.840.114 350.1.13.10 4.2.7.2.686 [id number] [id number] [facility] 2023-07-30 00:00:00 2023-07-31 09:10:12 Patient Secure Msg Obi-Franklin [facility] BUILDING 1.2.840.114 350.1.13.10 4.2.7.2.686 [id number] 044 [id number] [facility] 2023-07-25 00:00:00 2023-07-25 09:15:22 Refill Obi-Franklin , [facility] BUILDING 1.2.840.114 350.1.13.10 4.2.7.2.686 [id number] 044 [id number] [facility] 2023-05-29 00:00:00 2023-06-30 18:07:42 Patient Secure Msg [facility] 1.2.840.114 350.1.13.10 4.2.7.2.686 [id number] 044 [id number] [facility] 2023-06-21 11:31:00 2023-06-21 12:29:00 Emergency X BONITA TRIVEDI [facility] [id number] [facility] 2023-06-21 11:31:00 2023-06-21 12:29:00 Emergency Bonita Trivedi [facility] 1..840.114 350.1.13.10 4.2.7.2.686 [id number] 084 [id number] [facility] 2023-06-18 08:40:00 2023-06-18 08:40:00 Outpatient R OBI-FRANKLIN , JESS OBI-FRANKLIN , [facility] [id number] [facility] 2023-06-12 00:00:00 2023-06-12 00:00:00 Patient Secure Msg [facility]bi-[facility]lin , [facility] 1.2.840.114 350.1.13.10 4.2.7.2.686 [id number] [id number] [facility] 2023-06-06 13:00:00 2023-06-06 13:00:00 Outpatient R OBI-FRANKLIN , JESS OBI-FRANKLIN , [facility] [id number] [facility] 2023-05-29 00:00:00 2023-05-29 00:00:00 Refill Obi-Franklin , [facility] BUILDING 1.2.840.114 350.1.13.10 4.2.7.2.686 [id number] [id number] [facility] 2023-04-25 15:00:00 2023-04-25 15:00:00 Outpatient R OBI-JESS REID OBI-FRANKLIN , [facility] [id number] [facility] 2023-04-23 00:00:00 2023-04-23 00:00:00 Refill Obsuzanne-Franklin [facility] BUILDING 1.2.840.114 350.1.13.10 4.2.7.2.686 [id number] 044 [id number] [facility] 2023-04-11 00:00:00 2023-04-11 00:00:00 Refill Obi-Franklin [facility] BUILDING 1.2.840.114 350.1.13.10 4.2.7.2.686 [id number] 044 [id number] [facility] 2023-04-05 00:00:00 2023-04-05 00:00:00 Telephone Yadiadis [facility] BUILDING 1.2.840.114 350.1.13.10 4.2.7.2.686 [id number] 044 [id number] [facility] 2023-04-03 00:00:00 2023-04-03 00:00:00 Telephone Carlos Ibrahim [facility] BUILDING 1.2.840.114 350.1.13.10 4.2.7.2.686 [id number] 044 [id number] [facility] 2023-04-03 00:00:00 2023-04-03 00:00:00 Patient Secure Msg Obi-Franklin , [facility] BUILDING 1.2.840.114 350.1.13.10 4.2.7.2.686 [id number] 044 [id number] [facility] 2023-04-01 00:00:00 2023-04-01 00:00:00 [facility] 1.2.840.114 350.1.13.10 4.2.7.2.686 [id number] [id number] [facility] 2023-03-02 00:00:00 2023-03-02 00:00:00 Refill Obi-Franklin , [facility] BUILDING 1.2.840.114 350.1.13.10 4.2.7.2.686 [id number] 044 [id number] [facility] 2023-02-19 00:00:00 2023-02-19 00:00:00 Refill Obi-Franklin , [facility] BUILDING 1.2.840.114 350.1.13.10 4.2.7.2.686 [id number] [id number] [facility] 2023-01-26 00:00:00 2023-01-26 00:00:00 Patient Secure Msg Doctor Unassigned, [place] [facility] 1.2.840.114 350.1.13.10 4.2.7.2.686 [id number] 044 [id number] [facility] 2023-01-24 15:00:00 2023-01-24 15:25:03 Outpatient R OBJESS GRIMALDO [facility] [id number] [facility] 2023-01-24 15:00:00 2023-01-24 15:25:03 [facility] 1.2840.114 350.1.13.10 4.2.7.2.686 [id number] 044 [id number] [facility] 2023-01-16 00:00:00 2023-01-16 00:00:00 [facility] 1.2840.114 350.1.13.10 4.2.7.2.686 [id number] 044 [id number] [facility] 2023-01-15 00:00:00 2023-01-15 00:00:00 Orders Only Doctor Unassigned, [place] [facility] 1.2.114 350.1.13.10 4.2.7.2.686 [id number] [id number] [facility] 2023-01-15 00:00:00 2023-01-15 00:00:00 Patient Secure Msg Doctor Unassigned, [place] [facility] 1.20.114 350.1.13.10 4.2.7.2.686 [id number] 044 [id number] [facility] 2023-01-08 00:00:00 2023-01-08 00:00:00 Telephone [facility] 1.840.114 350.1.13.10 4.2.7.2.686 [id number] 044 [id number] [facility] 2023-01-06 00:00:00 2023-01-06 00:00:00 Orders Only Doctor Unassigned, [place] [facility] 1.2840.114 350.1.13.10 4.2.7.2.686 [id number] [facility] 2023-01-05 00:00:00 2023-01-05 00:00:00 Telephone [facility] 1.2840.114 350.1.13.10 4.2.7.2.686 [id number] 044 [id number] [facility] 2023-01-03 00:00:00 2023-01-03 00:00:00 Telephone Jess Munson [facility] BUILDING 1.2.840.114 350.1.13.10 4.2.7.2.686 [id number] 044 [id number] [facility] 2023-01-01 00:00:00 2023-01-01 00:00:00 Patient Secure Msg Doctor Unassigned, [place] [facility] 1.2.840.114 350.1.13.10 4.2.7.2.686 [id number] 044 [id number] [facility] 2022-12-28 00:00:00 2022-12-28 00:00:00 Patient Secure Msg Jeimy [facility] 1.2.840.114 350.1.13.10 4.2.7.2.686 [id number] 044 [id number] [facility] 2022-12-26 00:00:00 2022-12-26 00:00:00 [facility] 1.2.840.114 350.1.13.10 4.2.7.2.686 [id number] 044 [id number] [facility] 2022-12-25 14:45:00 2022-12-25 15:00:00 Pattern Filer Visit 2, Adc Lab Jeimy [facility] 1.2.840.114 350.1.13.10 4.2.7.2.686 [id number] [facility] 2022-12-25 14:00:00 2022-12-25 14:14:40 Outpatient R OBI-FRANKLIN , JESS OBI-FRANKLIN , JESS [facility] [id number] [facility] 2022-12-25 14:00:00 2022-12-25 14:14:40 Office Visit ObiJess Dai [facility] 1..840.114 350.1.13.10 4.2.7.2.686 [id number] 044 [id number] [facility] 2022-12-19 10:00:00 2022-12-19 10:00:00 Outpatient R OBI-FRANKLIN JESS OBI-FRANKLIN JESS [facility] [id number] [facility] 2022-07-19 15:30:00 2022-07-19 15:30:00 Outpatient R KAMILA MILAN [facility] [id number] [facility] 2022-04-14 10:00:00 2022-04-14 10:00:00 Outpatient R [facility] [id number] [facility] 2022-01-20 13:00:00 2022-01-20 14:43:14 Outpatient R JACINTA VOSS [facility] [id number] [facility] 2022-01-20 13:00:00 2022-01-20 14:43:14 Office Visit Provider, Dylan-Rmchp Meche Clayton Brenda A [facility] RESTAURANT LINE SERVER [facility]ERNAL & CHILD HEALTH [facility] 1..840.114 350.1.13.10 4.2.7.2.686 [id number] [facility] 2022-01-16 10:45:00 2022-01-16 10:45:00 Outpatient R MECHE ROBERSON [facility] [id number] [facility] 2022-01-05 00:00:00 2022-01-05 00:00:00 Encounter 1.2.840.1 25870.1.1 3.104.2.7 .2.876232 1.840.114 350.1.13.10 4.2.7.2.696 [id number] [facility] 2022-01-03 00:00:00 2022-01-03 00:00:00 Orders Only Doctor Unassigned, [place] [facility] 1.0.114 350.1.13.10 4.2.7.2.686 [id number] [id number] [facility] 2021-12-29 00:00:00 2021-12-29 00:00:00 Patient Secure g Rodrick Pete [facility] SERVER [facility] & CHILD [facility] 1..114 350.1.13.10 4.2.7.2.686 [id number] [facility] 2021-12-22 07:45:00 2021-12-22 08:42:11 Outpatient R JACINTA VOSS [facility] [id number] [facility] 2021-12-22 07:45:00 2021-12-22 08:42:11 Routine Visit Provider, JuliachJacinta Mathews [facility] CHILD [facility] 1..114 350.1.13.10 4.2.7.2.686 [id number] [facility] 2021-12-03 00:00:00 2021-12-03 00:00:00 Patient Secure Msg Doctor Unassigned, [place] [facility] 1..114 350.1.13.10 4.2.7.2.686 [id number] [facility] 2021-11-30 00:00:00 2021-11-30 00:00:00 Patient Secure g Rodrick Pete [facility] & CHILD [facility] 1.2.840.114 350.1.13.10 4.2.7.2.686 [id number] [facility] 2021-11-26 03:26:00 2021-11-29 10:05:00 Inpatient P VANESSA LEYVA [facility] CLEVE [id number] [facility] 2021-11-26 03:26:00 2021-11-29 10:05:00 Hospital Encounter Vanessa Leyva [facility] 1.2.840.114 350.1.13.10 4.2.7.2.686 [id number] 083 [id number] [facility] 2021-11-26 15:34:00 2021-11-27 08:48:00 Anesthesia Event Wilver Owens [facility] 1.2.840.114 350.1.13.10 4.2.7.2.686 [id number] 083 [id number] [facility] 2021-11-26 10:17:37 2021-11-26 10:17:37 Anesthesia Event Wilver Owens [facility] 1.2.840.114 350.1.13.10 4.2.7.2.686 [id number] [facility] 2021-11-23 09:45:00 2021-11-23 10:25:58 Outpatient LOVE SANTA EMILY [facility] [id number] [facility] 2021-11-23 09:45:00 2021-11-23 10:25:58 Routine Visit Provider, Dylan-Rmchp Rodrick Norton Emily J. [facility] 1.2.840.114 350.1.13.10 4.2.7.2.686 [id number] [facility] 2021-11-11 09:45:00 2021-11-11 10:12:23 Routine Visit Rodrick Pete [facility] [employer] [facility] & CHILD [facility] 1.2.840.114 350.1.13.10 4.2.7.2.686 [id number] [facility] 2021-11-11 09:45:00 2021-11-11 10:12:23 Outpatient R RODRICK PETE [facility] [id number] [facility] 2021-11-11 00:00:00 2021-11-11 00:00:00 Patient Secure Msg Pete, Rodrick Mosquera [facility] [employer] [facility]NAL & CHILD [facility] 1.2.840.114 350.1.13.10 4.2.7.2.686 [id number] [facility] 2021-11-09 00:00:00 2021-11-09 00:00:00 Telephone Rodrick Pete [facility] [employer] [facility] & CHILD [facility] 1.2840.114 350.1.13.10 4.2.7.2.686 [id number] [facility] 2021-11-07 00:00:00 2021-11-07 00:00:00 Refill PeteRodrick [facility] [employer] [employer] [facility] & CHILD [facility] 1.2.840.114 350.1.13.10 4.2.7.2.686 [id number] [facility] 2021-10-27 17:35:00 2021-10-27 19:05:00 Outpatient X BRENDA VELÁSQUEZ [facility] [id number] [facility] 2021-10-27 17:35:00 2021-10-27 19:05:00 Emergency Brenda Velásquez K Paige [facility] 1.2.840.114 350.1.13.10 4.2.7.2.686 [id number] [facility] 2021-10-27 12:45:00 2021-10-27 13:34:39 Outpatient R YANCI RODRICK [facility] [id number] [facility] 2021-10-27 12:45:00 2021-10-27 13:34:39 Routine Visit Yanci Rodrick Mosquera [facility] [employer] [facility] & CHILD [facility] 1..840.114 350.1.13.10 4.2.7.2.686 [id number] [facility] 2021-10-27 12:45:00 2021-10-27 12:45:00 Outpatient R SONIA PETECUAUHTEMOC [facility] [id number] [facility] 2021-10-27 00:00:00 2021-10-27 00:00:00 Orders Only Doctor Unassigned, [place] [facility] 1.840.114 350.1.13.10 4.2.7.2.686 [id number] [facility] 2021-10-26 00:00:00 2021-10-26 00:00:00 Abstract Yusuf Petereno [facility] [employer] [facility] & CHILD [facility] 1..840.114 350.1.13.10 4.2.7.2.686 [id number] [facility] 2021-10-21 09:45:00 2021-10-21 10:30:00 Pattern Filer Visit Ultrasound, Vinh Stone [facility] [employer] [facility] [facility] & CHILD [facility] 1.84.114 350.1.13.10 4.2.7.2.686 [id number] [facility] 2021-10-21 09:45:00 2021-10-21 09:45:00 Outpatient VINH JOY [facility] [facility] [id number] [facility] 2021-10-18 00:00:00 2021-10-18 00:00:00 Patient Secure Msg Doctor Unassigned, [place] [facility] MATERNAL & CHILD [facility] 1.2.840.114 350.1.13.10 4.2.7.2.686 [id number] 107 [id number] [facility] 2021-10-18 00:00:00 2021-10-18 00:00:00 Telephone Rodrick Pete [facility] & CHILD [facility] 1.2.840.114 350.1.13.10 4.2.7.2.686 [id number] 107 [id number] [facility] 2021-10-14 08:00:00 2021-10-14 08:34:31 Outpatient R RODRICK PETE [facility] [id number] [facility] 2021-10-14 08:00:00 2021-10-14 08:34:31 Routine Visit Rodrick Pete [facility] & CHILD [facility] 1..840.114 350.1.13.10 4.2.7.2.686 [id number] 107 [id number] [facility] 2021-09-29 10:45:00 2021-09-29 11:39:29 Outpatient R RODRICK PETE [facility] [id number] [facility] 2021-09-29 10:45:00 2021-09-29 11:39:29 Routine Visit Rodrick Pete [facility] & CHILD [facility] 1.2.840.114 350.1.13.10 4.2.7.2.686 [id number] 107 [id number] [facility] 2021-09-29 10:45:00 2021-09-29 10:45:00 Outpatient R RODRICK PETE [facility] [id number] [facility] 2021-09-16 00:00:00 2021-09-16 00:00:00 Patient Secure Msg Doctor Unassigned, [place] [facility] 1..114 350.1.13.10 4.2.7.2.686 [id number] [facility] 2021-09-16 00:00:00 2021-09-16 00:00:00 Telephone Rodrick Pete [facility] & CHILD [facility] 1.840.114 350.1.13.10 4.2.7.2.686 [id number] 107 [id number] [facility] 2021-09-16 00:00:00 2021-09-16 00:00:00 Telephone Rodrick Pete [facility] & CHILD [facility] 1..114 350.1.13.10 4.2.7.2.686 [id number] 107 [id number] [facility] 2021-09-15 10:45:00 2021-09-15 11:53:13 Outpatient R RODRICK PETE [facility] [id number] [facility] 2021-09-15 10:45:00 2021-09-15 11:53:13 Routine Visit Rodrick Pete [facility] & CHILD [facility] 1.0.114 350.1.13.10 4.2.7.2.686 [id number] 107 [id number] [facility] 2021-09-13 00:00:00 2021-09-13 00:00:00 Refill Rodrick Pete [facility] & CHILD [facility] 1..114 350.1.13.10 4.2.7.2.686 [id number] 107 [id number] [facility] 2021-08-23 08:45:00 2021-08-23 22:46:00 Outpatient X BRENDA VELÁSQUEZ [facility] [id number] [facility] 2021-08-23 08:45:00 2021-08-23 22:46:00 Emergency Juan, Brenda Avery [facility] 1.2.840.114 350.1.13.10 4.2.7.2.686 [id number] [facility] 2021-08-18 10:30:00 2021-08-18 10:44:10 Outpatient R RODRICK PETE [facility] [id number] [facility] 2021-08-18 10:30:00 2021-08-18 10:44:10 Routine Visit Rodrick Pete [facility] [employer] [employer] [facility] & CHILD [facility] 1.2.840.114 350.1.13.10 4.2.7.2.686 [id number] 107 [id number] [facility] 2021-08-11 00:00:00 2021-08-11 00:00:00 Patient Secure Msg Rodrick Pete [facility] MATERNAL & CHILD [facility] 1.2.840.114 350.1.13.10 4.2.7.2.686 [id number] 107 [id number] [facility] 2021-08-11 00:00:00 2021-08-11 00:00:00 Refill Rodrick Pete [facility] [employer] [facility] & CHILD [facility] 1.2.840.114 350.1.13.10 4.2.7.2.686 [id number] 107 [id number] [facility] 2021-08-11 00:00:00 2021-08-11 00:00:00 Refill Rodrick Pete [facility] & CHILD [facility] 1.2.840.114 350.1.13.10 4.2.7.2.686 [id number] 107 [id number] [facility] 2021-08-11 00:00:00 2021-08-11 00:00:00 Refill Rodrick Pete [facility] [employer] [facility] CHILD [facility] 1.2840.114 350.1.13.10 4.2.7.2.686 [id number] 107 [id number] [facility] 2021-08-02 00:00:00 2021-08-02 00:00:00 Abstract Rodrick Pete [facility] [employer] [facility] CHILD [facility] 1.2.840.114 350.1.13.10 4.2.7.2.686 [id number] 107 [id number] [facility] 2021-08-01 00:00:00 2021-08-01 00:00:00 Patient Secure Msg Doctor Unassigned, [place] [facility] [employer] [facility] CHILD [facility] 1.2840.114 350.1.13.10 4.2.7.2.686 [id number] 107 [id number] [facility] 2021-07-29 09:30:00 2021-07-29 10:45:00 Pattern Filer Visit Ultrasound, GiovannaMfm Rodrick Pete Antonio [facility] 1.0.114 350.1.13.10 4.2.7.2.686 [id number] [facility] 2021-07-29 09:30:00 2021-07-29 09:30:00 Outpatient P [facility] [id number] [facility] 2021-07-29 09:30:00 2021-07-29 09:30:00 Outpatient P MADDIE ROMEO [facility] [id number] [facility] 2021-07-29 08:00:00 2021-07-29 08:36:27 Pattern Filer Visit Lab, Dylan-Rmchp Rodrick Pete [facility] [employer] [employer] [facility] 1.2840.114 350.1.13.10 4.2.7.2.686 [id number] 107 [id number] [facility] 2021-07-23 00:00:00 2021-07-23 00:00:00 Patient Secure Msg Doctor Unassigned, [place] [facility] 1.840.114 350.1.13.10 4.2.7.2.686 [id number] [facility] 2021-07-21 09:00:00 2021-07-21 10:12:55 Outpatient RODRICK DENNIS [facility] [id number] [facility] 2021-07-21 09:00:00 2021-07-21 10:12:55 Routine Visit PeteRodrick [facility] [employer] [facility] MATERNAL & CHILD [facility] 1.840.114 350.1.13.10 4.2.7.2.686 [id number] 107 [id number] [facility] 2021-07-21 09:00:00 2021-07-21 10:12:55 [facility] [id number] [facility] 2021-07-21 09:00:00 2021-07-21 09:00:00 Outpatient RODRICK DENNIS [facility] [id number] [facility] 2021-07-21 09:00:00 2021-07-21 09:00:00 Outpatient SONIA DENNISLIMAGloria [facility] [id number] [facility] 2021-07-17 02:36:00 2021-07-17 06:54:00 Emergency X CARO BAUER [facility] ERT [id number] [facility] 2021-07-17 02:36:00 2021-07-17 06:54:00 Emergency Caro Bauer [facility] 1.840.114 350.1.13.10 4.2.7.2.686 [id number] [facility] 2021-07-12 00:00:00 2021-07-12 00:00:00 Telephone Rodrick Pete [facility] [employer] [facility] & CHILD [facility] 1.2.840.114 350.1.13.10 4.2.7.2.686 [id number] 107 [id number] [facility] 2021-07-06 00:00:00 2021-07-06 00:00:00 Telephone Rdorick Pete [facility] [employer] [facility] & CHILD [facility] 1.2.840.114 350.1.13.10 4.2.7.2.686 [id number] [facility] 2021-06-28 01:26:00 2021-06-29 10:10:00 Outpatient X BRENDA VELÁSQUEZ [facility] [id number] [facility] 2021-06-28 01:26:00 2021-06-29 10:10:00 Emergency Alayna Bear S Brenda Velásquez [facility] 1.2.840.114 350.1.13.10 4.2.7.2.686 [id number] [facility] 2021-06-27 20:49:00 2021-06-27 20:59:00 Emergency X [facility] ERT [id number] [facility] 2021-06-27 20:49:00 2021-06-27 20:59:00 Emergency [facility] 1.2.840.114 350.1.13.10 4.2.7.2.686 [id number] [facility] 2021-06-24 00:00:00 2021-06-24 00:00:00 Patient Secure Msg Rodrick Pete [facility] [employer] [facility] & CHILD [facility] 1.2.840.114 350.1.13.10 4.2.7.2.686 [id number] [facility] 2021-06-24 00:00:00 2021-06-24 00:00:00 Telephone Rodrick Pete [facility] [employer] [facility] MATERNAL & CHILD [facility] 1.84.114 350.1.13.10 4.2.7.2.686 [id number] [facility] 2021-06-23 14:00:00 2021-06-23 15:33:45 Outpatient R SONIA PETEDAMARILIMAGolria [facility] [id number] [facility] 2021-06-23 14:00:00 2021-06-23 15:33:45 Initial Visit Marie Petegloria Mosquera [facility] [employer] [facility] [facility] & CHILD [facility] 1.840.114 350.1.13.10 4.2.7.2.686 [id number] [facility] 2021-06-23 14:00:00 2021-06-23 15:33:45 Outpatient R SONIA PETECUAUHTEMOC [facility] [id number] [facility] 2021-06-23 14:00:00 2021-06-23 15:33:45 Outpatient YUSUF DENNISLIMAGloria [facility] [id number] [facility] 2021-06-23 00:00:00 2021-06-23 00:00:00 Orders Only Doctor Unassigned, [place] [facility] 1.84.114 350.1.13.10 4.2.7.2.686 [id number] [facility] 2021-06-22 08:04:00 2021-06-22 13:00:00 Emergency X ANGUS DWYER [facility] ERT [id number] [facility] 2021-06-22 08:04:00 2021-06-22 13:00:00 Emergency Angus Dwyer [facility] 1.84.114 350.1.13.10 4.2.7.2.686 [id number] [facility] 2021-06-21 22:18:00 2021-06-21 23:26:00 Emergency Caro Bauer [facility] 1.2.840.114 350.1.13.10 4.2.7.2.686 [id number] [facility] 2021-06-21 22:18:00 2021-06-21 23:26:00 Emergency X CARO BAUER [facility] ERT [id number] [facility] 2021-06-21 22:18:00 2021-06-21 23:26:00 Emergency X CARO BAUER [facility] ERT [id number] [facility] 2021-06-11 12:44:00 2021-06-14 18:06:00 Inpatient X JOSE DE JESUS MEDINA [facility] [id number] [facility] 2021-06-11 12:44:00 2021-06-14 18:06:00 Hospital Encounter Abdullahi Gomez Christopher Adum, Jose De Jesus Vick [facility] 1.2.840.114 350.1.13.10 4.2.7.2.686 [id number] [facility] 2021-05-30 23:49:00 2021-06-03 14:41:00 Hospital Encounter Abdullahi Gomez Shannon M [facility] 1.2.840.114 350.1.13.10 4.2.7.2.686 [id number] [facility] 2021-05-30 23:49:00 2021-06-03 14:41:00 Inpatient X EDITH TERRY SHANNON [facility] [id number] [facility] Results Test Description Test Time [...] details: ?Outcome: ?Pain relieved ?Procedure completion: ?Tolerated [facility] CT Abdomen pelvis w contrast [...] pelvisdemonstrate no osseous destructive lesion. [facility]17524[facility]2024-02-22 06:46:27* Test Item Value Reference Range Interpretation Comme nts NA (test code = 7787808350) 138 mmol/L 135-145 K (test code = 8535313897) 3.9 mmol/L 3.5-5.0 CL (test code = 5711048852) 104 mmol/L 98-108 CO2 TOTAL (test code = 8234045441) 22 mmol/L 23-31 L AGAP (test code = 9722532095) 12 2-16 BUN (test code = 6484059872) 11 mg/dL 7-23 GLUCOSE (test code = 8333349793) 113 mg/dL 70-110 H CREATININE (test code = 2160-0) 0.50 mg/dL 0.50-1.04 TOTAL BILI (test code = 7614585351) 0.9 mg/dL 0.1-1.1 CALCIUM (test code = 2300013838) 9.5 mg/dL 8.6-10.6 T PROTEIN (test code = 5371611342) 8.5 g/dL 6.3-8.2 H ALBUMIN (test code = 9490453582) 4.8 g/dL 3.5-5.0 ALK PHOS (test code = 0747503095) 81 U/L 34-122 ALTv (test code = 1742-6) 15 U/L 5-35 AST(SGOT) (test code = 0290248633) 21 U/L 13-40 eGFR (test code = 10415-1) 132.0 mL/min/1.73m2 CKD-EPI eGFR (2020). Assuming creatinine has been stable day-to-day for at least three months, the eGFR indicates Category G1 (>= 90 mL/min/1.73 m2) Lab Interpretation (test code = 94892-3) [facility]normal [facility] 06:45:47* Test Item Value Reference Range Interpretation Comme nts LIPASE (test code = 1759233457) 24 U/L 0-220 Lab Interpretation (test cod e = 93798-7) Normal [facility] WITH ZYQM0384-11-50 06:27:08* Test Item Value Reference Range Interpretation [...] 33.9 g/dL 31.6-35.1 RDW-SD (test code = 00921-1) 48.3 fL 39.0-49.9 RDW-CV (test code = 788-0) 12.9 % 12.0-15.5 PLT (test code = 777-3) 402 166-358 H MPV (test code = 87413-8) 9.3 fL 9.5-12.9 L NRBC/100 WBC (test code = 4426501478) 0.0 0.0-10.0 NRBC x10^3 (test code = 5488387225) See_Comment [Automated message] The system which generated this result transmitted reference range: 10*3/?L. The reference range was not used to interpret this result as normal/abnormal. GRAN MAT (NEUT) % (test code = 770-8) 89.3 % IMM GRAN % (test code = 6968478136) 0.40 % LYMPH % (test code = 736-9) 7.4 % MONO % (test code = 5905-5) 2.7 % EOS % (test code = 713-8) 0.1 % BASO % (test code = 706-2) 0.1 % GRAN MAT x10^3(ANC) (test code = 8490066054) 12.26 10*3/uL 1.88-7.09 H IMM GRAN x10^3 (test code = 2318358833) 0.06 10*3/uL 0.00-0.06 LYMPH x10^3 (test code = 731-0) 1.02 10*3/uL 1.32-3.29 L MONO x10^3 (test code = 742-7) 0.37 10*3/uL 0.33-0.92 EOS x10^3 (test code = 711-2) 0.03-0.39 L BASO x10^3 (test code = 704-7) 0.01-0.07 Lab Interpretation (test code = 57357-8) Abnormal [facility] [id number] 17:53:54* Test Item Value Reference Range Interpretation Comme nts Case Report (test code = 6145184845) Surgical Pathology ?Case: [id number] ? Authorizing Provider: ?Eva Bryan MD ? ? ? Collected: ? 01/29/2024 1200 ?[facility]: ? [facility] ? ? ?Received: ?01/29/2024 1228 ? [facility] ?Pathologist: ? Brendon Dawson MD PhD ?Specimen: ? ?GALLBLADDER ? Final Diagnosis (test code = 8092742353) v1eyyGKjKGHyq9obPAOqmQ FuZzEwMzNcZnRuYmpcdWMx MMrybvIsPHgrtGvcTGW1OZ SfZS1wjQyvbPw3lRatJBHo nrR1tUIoWVkrx5hcQLA3v1 asudlpVXTpXGetNk9mdEFp wHydPbKzQRPbFIw4bJ21LV JmaR0ylGKrDQu0MROvaXMh beEtSbWbKRGbgAVxvQJ7YW MnXX9nofbhBMfqZYtbLJDp rvX4AXLqhLEvS5QyFIDfAP 8tyqluXCD4QIirUHLyDYK1 YiMoLPQxj2Doizg7CnIccH FyZFxwbGFpblxmczIwXHBh ciBBLiBHQUxMQkxBRERFUi neJ7lDFNGCCVJZUFUJX34P OiBccGFyICAgICAtIENIUk 5IGSGmH0fUGKKVZRQOVVIW RrPERYULSTOHS0tRD3IQSp 3AR9MJZ4ecZRAhYUZtJW0n Q4mMPRJZEMRHRUHZCLNfzW FyXHBhcmRccGFyfXtccnRm KOndf3MlO0NaYqSfEAklvr NpXGRlZmxhbmcxMDMzXGZ0 bmJqXHVjMVxkZWZmMHtcZm 6wpXRkuXkoBhRtTQPge3ng bkPRVTbaOkJhG090YOHuBB qsi7ron7NsHACijKXin3I8 QSYWlmeciLs6d7ezFpLeLl I5nDFrSOxlE1rekvThgOXd M3IzsMYgpYp1sDjvB56wi7 H0HlrrI6bcHIRyYONuJ0It FG0pHHIqYxg1VLJ9WEX6XF XlNMKhP5RgWZ3pRDDtgFHx UCy9e0nzlGorWJXkIWI3f8 nbNQftnnI8JU5wnu2mjHt8 s0knbjGjUNJmNMFqnMWJJM AcM5InkFooBo3ecTg1wGrs YgqpRYK0Xjc5ON1pdu54xy x6xLybAMEdytxaSoC6UPuz UZUwhsllMOc9OYnePDByiE A8MBYebOAeM2FoACOtCE5k cgw8AUH9UMasMMPjSlG9MA PpbBEiQLWlyLnvCUsqo252 KXS1HnWgRX6tF8Ean4N9eS 9maXRcZGVmdGFiNzIwXGZv vz2dqHSkRVhkz0LvXOO9sl L7kJTaeHTyYFZzGP11Uqhg b3GdAieuYOC0SCCtteDrk9 Ien3jsDvVsucSeM4hfY3Lp ZHJoZWFkXHBnYnJkcmZvb3 Rpu8KitEVdzQr3z7wtLJIy VMBecXprz2aiFPQ7VBTyK6 Z1aMFqu7zxLQcgSHVepDX1 voU3CRBlwEIjT3ZwkO5sVV ZiTE7leak0j6zdKJK1SWpx XMStEjZ7joP9BKNwlESzDC PahUwiSYyen372MDJ4SsVp JAWpq8FaZ0DqbIjbE62iaX uzA94aRTYwwQyegK5gkOzl xB9aUyRuIaLeQXcgrJjhaJ FpblxmMVxmczIwXGxhbmcx FDWkKXbaR3hqVcEcZXAsrF cvFVcvh9NrIROeOXClYnqx czIwXHBhciBJIGhhdmUgcG Ggc84sSIewoJUpOUYnREjo WSRiyQgvc3HqP4vwZA7gX6 NsaWRlcyBhbmQgYWdyZWUg r8r8bGUdzPrkp9NzdABiZP 77sxVaQJSiVWS1KQYrf9uc RC24lehmNaFpxJ00lsMxuh XkLHJnl7rlN5wvqXDjw3Ab j4IeueNdIExyt2KwVT1vxR ZttjbwsKC0DSVdxHWivuIr xrY3wObeDODiwG8plA8xyN knrY8eUyOgMqMcSCpzFB4r KHXhZ0cxpHTmPCSsOZJhO1 ijBuCemD8xxAznDesnjqG0 IUSvfu81 Clinical Information (test code = 6089099757) Abdominal pain, epigastric [R10.13] Gross Description (test code = 2101233123) t7ursKYzWLOvwBUMWVQ4UJ LfKR7gtNpzsDu0tSghBWGp mpW3sGDzAUhah6fpDSI0o8 xpzzVMLtkaGYWbNZ3dJXmw FTDoRD9pLcOlQZAuIxCwKS BhcGVydzEyMjQwXHBhcGVy rIX2BTTmZJ8kavpmQQpnXW nkBUGmzoR6CZHfrPQdS5Wv NBReEY2talnrCTQ4NAPTGm gdVn3llLYtrAsmIrJhUhJp ASJuDLNoBNRfv9qtbnOKij xeoTo8eQ2RJXBfL3GmXX6E c0buQYRvoGDhIMO3CZppr3 hiAVccESA3GDDnFULiVGPx QI3SOlYyZHJ1TTb0ZlJ2Dl X8MQn9XGWYPANkILI9PAd9 IOY8VQq6NYSjTJ3uORyvqB WhKUadAsvxZIssD158SUbb YVGkG0FzO2ObJMwrDmSxAG oxNADyLATqUHudLOTwJ0CD WCVlKWI0GVK1LoZnQSu5AA o7LL3GAjIxZLFdCNGmTJH6 HBSzDYi7FFcxXB9NNQFuPo G6GLR6PmfiCPEkQArfANu8 IDIgXFxzcyAzIFxcZmwgXF awF09ywXYrTEKPTvjbiAGp blxmczIwIFNQRUNJTUVOIE PitTYcY4ayTpItPnnyTUTe DQpccGFyZCANClxwbGFpbl xsdHJjaFxmczIyXGVwaWNO GRA3WS0lXQCNKgokpDOdIV GvRCpInXWwxZ2uznXJVIty YMDpG4WbjnYtAUsqSJAiid 5icWoaBEdeYuSsHSGuq3v5 wDA7fBQkcGE4bJMbuXmpOY 1adWSvVHVQDD60dJVdjwmm ImdhbGxibGFkZGVyIiBhbm LrT22zy5pqmUTlf7ImQAY6 LC6gpQuyakOnnmByH3ClK4 FsbGJsYWRkZXIgKDguMSB4 HFBtNtF7AUJgTMZnvNten9 f6wBNdFQVcp939zUUbCYPp p3KbAZJ4bxQpJ4UlZA9wQM Cecl88G5uhJAZ7PY08mIZs SOugx0VxEyYfEP7sIWUjLC NyaMN0jLVaOQFnjOJeAIOd xG0glDObnH8aMPSkVgrkM6 niTTZSkXStz8NeE1kjNG5q fTGek1EtonOaSSEdSMMzmv LerYLbuX0reAGyMBLiv7Qs qQOxWwF2LL9ephYuKHPbp1 PniVPpRlsvSGV6zZSaUHCm xCZoJLfgnMrccaPvs4ApVW wgoBMnEAUptUS7qAksMACt OlY6VJVpRXF5FPMyYrCixD IkzsBzOL00PUnmLI36ICgq WS5aRFHzNG8dBNCvIUKatM Gnk5YjcXMyfESfPQEcZDjx jwAarxZ9pLjej37bl7VxTF OmsNsgiLItjIVwHP47BCVf WGlzlBwlOX1xTYR5qeEais LeZI0eyP83KI3rKApdkCct pcTltKVff5cocsgwBSPZlr DiFIIyIQJmxHEsGAi9jAKc BN7qANKhzFPnmJHvqzWkDz jsGC0fXDIuDPC0JRmnBFU1 CWPuH9SxWSZnWiUnqTQ8fF reus3nZVBicKYmq4SgbKU2 rFRgBELfM8Ptr03xTZEpDG IimNZxbEW7SWYihL5hPBGv XHBhciANClxwYXIgDQpTYW gweDYiOTykXV5oDNOSVXpU K0SYPAJxmQInhQIrmAlxLf dsfCP8LXzvNvojfW2rePMY CRUCVwwYOursmqIlLQ5MBI 2MXbZDFN33AbJfNVLwfTY9 KMHABVtguTq3YAq6pFriHx kftpKkeRCeRbJByV9ySn7x RW1oMWB9NWJ9ZxR1a7mvfE TuNAenDbqvsMBgweQ0SEfQ WQUKLZeJBmYxVQ4zHJfEHl wSNkM8WvShDSZusRL2MQEE TFqvyQq3HKc2aNlwIklngt TwrYAsVvXBuT4mzMhrlU4y hTWuU2foWePcJopfRXCyJV tuy4FzGDivtRfsNYTbQnYn URujJPAbB55qk7MNn0Avt7 tqdJjwi7ZkyGScJN62CGSw wUTfFWB3OT2zyEwmZJAxEE pccGFyZCANCn0= Disclaimer (test code = [id number]) c3zjpMHfOZZel0yzQPVghP FuZzEwMzNcZnRuYmpcdWMx TBrvwdBqVEics9YhG8IbGu AwMFxhbnNpXGRlZmxhbmcx NOPvDHP6puIiLKIbMCfjHX PaCCsfTu2vpOSvkUceGiGf MQXsj7ahjkJUPVidSwQiJ6 83IYQzBLsbp0udg2EdAJXe pWZah0P7QBENlbhavJk5vZ heV37ks3J4WchpF5dqEBDk KMBdS9GqBK9pCHAgSik1AL L5YWH7HLBzCFEwD9EcSI5m AUHgwCIcDIx5a1ywlSogVU MzPVF4q8ovOUxufaEyRP2o hq4zgWy0a5ydapFfKPJhYZ OeyUAQKLAlS4HxcCkgLr8p nYt5dHoxYsflOPE9Gzu0RC 3psj23tpa6aBhoOCCqnold ZqB4VRdsKYWpqlfoWEn9NU axYEVsxME6BLXmyFHmP9Wn ATTnTV4gxvp5JSN1UAtdZS EzIrV9NZAgsMOpJYEiqNyl YEueb420HTB6EsBlVX5mA5 Llc3U8mI0faZXpLMIjpFCn LgMzLZTrhj4ivLOvVPdtb5 WhCXF3puV9rSFmyGVyLDRv HG57Obtqk7AfNjeog3PgO9 7hvOL9HQasg9rhNK5wKjA7 ffSdELlnu7cfaS9wGtL4BZ ooIQ7yYG0oWPPzmP3coihg XHBnYnJkcmhlYWRccGdicm GqYy0hjRzlXXL1WVemN4ys vQ2pWfB8QJilO2kvzU3bHK y3UPcarTX3DFCbtM2uZU5i syyrg1cjJSlsPRfuLZMekr R9ryO1JRRvjLLeU2OwwS1m KQEuNN7lplizc1iaILQ4FO pxCUJgNJH8BkTnIEXlv6Dg moq9WbYby3KxmGMpBFnyL2 4xm852EJQanvSuC4rfiWKv akkvyTCdfzbzPDjuptL6YW DiwhFhi9DzCBNsKAB5KGzd RRficGHoGHZptOgkv3jiR3 RscGFyXHBsYWluXGYxXGZz MjBcbGFuZzEwMzNcaGljaF swANoxPzAiZWEsLUzgN0uc BhYbM3YaUPJlBvKtrBWdA5 ggVGhpcyByZXBvcnQgbWF5 RTnkL6z1XUIfzpOxvSj2uk GnJePoOKRdDIL8NWwiaDCe VWPrq9OwcdsjvJTrIq2okI SqVLVabI0eAMLoZELrKAlo DJ1sdRw2HNXWrVBopHLcFz VTASGsBM65bvRuWXGBbwsx k5M3TJjbUZJwy0KirVQuC1 cdz0OgALZfj28eFU9oe2U4 l7nhXNW1BL8ru8NqSRBgcS BpsKUrMWJqw4Tqflwpo0Ln GIWbcaLpa9DuFAAxczYheI NmMZPoyrXvwv3lyoMxAOHg YEClS4FalthzfQzjbkHmGI Wfmm8jglLzZPM6ELWOWNWj XEHyg3JhuY6hiSVYSEN3oF Tabr4grqDPvGLxQVOkgz64 FXLzST8gF0gqJWCxBLGbkw HfpIVqi1ZhHWUfmGW5uTJj MC3ZQuXQf43jKTDnHZMLne RzMAZowGshoME7ggF5kG9e IChGREEpLlx+IFRoZSBGRE ObJN9haaJvj5LjwzWdaAyq WGGkaFOhe9OetEIru7IoeX vth8FziSInqHYeDB6kILCv clxwYXIgVVRNQiBMYWJvcm H5p0EfHUBbZZBuUSG7eIlb ntk2ZQMjeI4pZRKnH0vhmn vgUStoEZQog3XliM9vnTUD pFGdc9AnoAJyfQSQwGMaZB 3yplOsPIuPHJuLERW5sgAq LGOze5EuAChoZ7woA64kyN caiWb5jVE9ZDH4rW8vMqe+ IFxwYXJccGFyIEFwcHJvcH VsTTXkpZzhxnVnG8RuvwBs gT5tuTCvfsKdBW8pRI4xI2 W4xFXuWQAshdVsa7vpDYyn dmUgYmVlbiByZXZpZXdlZC Wud8YkJEtgFRV9WQdvpjYd bmNsdWRpbmcgSCZFLCBTcG QgoSMuKMB6IQwfsnKbowAf PK7giV7evNmekL7oyACvoA J1elvySZDyNKKeyVrnROOu OV3tjSccaE0cAwOwHdWqBK nwKB4pZEKdL7aouISlINYg TBWwQ4mpPbAodP9vzHwoXR xjZjJcZnMyMFxwYXJccGFy XHBsYWluXGYxXGZzMjBcbG FuZzEwMzNcaGljaFxmMVxk WiRdWTCzFCxrS1gaYyFvO7 UnKSHeWrKnsQJvV8nmXDct ZDT4VGJjFQ4bmQYbNR10hP Ujz1llJKrwdHydbm6lV85e lZHqEFkheFpaAYGox62fi0 FrWXXpruWshy2kMCEfxmC7 rV0aOGZxsOgcDHZvhGVjPR Zop9NtGFmrxKEdigYqJPsc JVPsTOJmxWZiyqQ3laWtli KomjUrEOUlnUugLTLcp2Ws FQJfUVelg0Pgcu3liXItYV XljvNNiRwdwQNpsN4cT7Pq GHQvSQFspg4yLETufG8uPA qts0OnvuwbXLTnBRGqWCDr qoGval4qDACqvXIYXR8HTX orvDDor5VsauOlP4pWGWB0 NUQwNjYwMjgxKSBleGNlcH YsZFRdaf82IYCijK7nbIqj DVNfcX0dxN0gaHchwP8qWk UcNpAcSIptLY0jULKyZ1ia xTQdBPNmXWLcD2ytNcEiiR 9jaFxmMVxjZjJcZnMyMFxw YXJ9fQ== Embedded Images (test code = [id number]) [facility] 16:39:00Barbara Cartwright CRNA ? ? 01/29/2024 11:42 AMIntubationDate/Time: 01/29/2024 10:39 AMUrgency: elective Airway not difficult General Information and Staff Patient location during procedure: ORPerformed: resident/MECHANIC INSULATOR Performed by: Barbara Cartwright CRNAAuthorized by: Radha [...] atraumatic, dentition and lips unchanged from pre-op. [facility] [id number] 16:19:00* Test Item Value Reference Range Interpretation Comme nts POCT PREG (test code = 1605) Negative On board controls acceptable with C Line (test code = 3574) Yes POCT PREG LOT # (test code = 3575) [id number] POCT PREG TEST DATE ( test code = 3576) 05/27/2024 [facility] [id number] 16:19:00* Test Item Value Reference Range Interpretation Comme nts POCT PREG (test code = 1605) Negative On board controls acceptable with C Line (test code = 3574) Yes POCT PREG LOT # (test code = 3575) [id number] POCT PREG TEST DATE ( test code = 3576) 05/27/2024 [facility] [id number] 10:32:00* Test Item Value Reference Range Interpretation Comme nts POCT PREG (test code = 1605) Negative On board controls acceptable with C Line (test code = 3574) Yes POCT PREG LOT # (test code = 3575) [id number] POCT PREG TEST DATE ( test code = 3576) 2024-11-23 Lab Interpretation (test cod e = [id number]) Normal [facility] [id number] 15:14:36Ordered by an unspecified provider.[facility] Surgical Pathology [id number] 16:13:04* Test Item Value Reference Range Interpretation Comme nts Case Report (test code = [id number]) Surgical Pathology ?Case: [id number] ? Authorizing Provider: ?Yisel Hart MD ?Collected: ? 12/24/2023 1057 ?Ordering Location: ? ? [facility] OR Department Received: ?12/24/2023 1148 ?Pathologist: ? Brendon Dawson MD PhD ?Specimen: ? ?STOMACH, 1. gastric biopsy ? Final Diagnosis (test code = 8975025268) u8kypDFgHVTac8jwYRKlpPLvY zEwMzNcZnRuYmpcdWMxIHtccn WrTRtstVwgPYF3WCKoBH0bvOc hpVp8gYwwCTOscaI3wYYfRAnr g9hbFVT3i2meoqknTLMfSNadG j0aeMYpgNbtRtAqQRIpKWx5wL 87EQXmbZ9rkZDfAQu5SRNpdAR jnvFfXhUaMBRrpFRrhGS9VGTs YQ2iiypjPOzrJVcyIZXtocG5Y NTqqUFkM3EcABCmWX1mwkxiWF E7XOaqXORiXXB2AtFjCMEcj2K vwnd1TuRbvXSgRPwlqJVpyjuf kxSfJUQukzNBGgDPXR7QEPPAM EHRLT6XI9j2RXDkyweubDP7OV CxEWmSS2YQKVUrNYRDN0DRFLw NKXjyIb0bRJUSUJ7XD6lIS9DA SEREJJ0ATZzrCCBoJNEWNpMGE 2YMBnhFBDJTGfQSCvBRU3FZOx LVHR3OJBDJBEANONCxPXMHLuP JRklFRFxwYXIgLSBOTyBILiBQ WUxPUkktTElLRSBPUkdBTklTT VMgSURFTlRJRklFRFxwYXJccG NiPGlwROW3h5rehQSoHAGdvUK iJjRlUPSgYRPwh1svJOQhgUFt ZzEwMzNcZnRuYmpcdWMxXGRlZ iIii8baf041lQOil3boALAmGi H5iUNbETJfgYwpfvh7jAwnCxP oRZHfr1zqrhVeDnBxLMTnTUNe FVLywLXrJ301SWIzRPjjm8qtg 6FqSXZlpZKuf1U3DOBFNDntJj IyM150k0ygu9ezhcZmtEU0WEA kPSX7QKkpoxHfozY8WWizsRKq YtT7ZVprhjNsSLhdxzQuqwTcK uu4RIDxF009QWR0nShpj3icTP T2XFAmVOBfSqshKi2stCOpA09 5HOCuOOOJCLRhzLw6ZYCbphUy uzElrAKNr287Y598p9ytQCFie tPkwXcDlppjk8dxA989RUMxrI BtauGlOqXrXXYawKParMJ4QRM tWA5lqhnpDQksMSbkALSfixU2 SIMalLMkM4NyPYYtMF6zktwaU NG3DHgkESIqIBP9SqQyKRRxg7 Trvgr6ZgGnpp1fbn57SQO7o9M cvUgoXMU0QLO0ViAtXd3nrERi WPJvLK3fCeHtzGZiLIHzxn66l RdaCMxpvfMerV0eRwOyZXGaiM RuBEGgMK5nfXAmZOJcjH6ykoi jXHBnYnJkcmhlYWRccGdicmRy Lj1sfKssYOQ4QHzpE7bizZ3zX hJ4LVhbU2yvzM9xATj8EBocaN I5QHXfvV7bHR3tzojej3lwOEf cXJesGSNnhjJ7zxG2VSMorVKy W5OlpW0tHVZyNE6hcvxqb1kfS JT7OIpbGJBjLRC1EnBcLDAgq3 Vyasa6GzJly2ZveSQnFLsvA52 tk945IVPzptSnX8iqlZQjzhlb lYUgyourFRwalwS8VRFiMXOuX WluXGYxXGZzMjBcbGFuZzEwMz NcaGljaFxmMVxkYmNoXGYxXGx eB9eqLdNhN2AiHARsZcPyvUXz UZqncCA1CETuKXZbq37gmSk7I QJqfzmjj4UqKCXwoAZgaKTjiN 8ubuHfo8ofPZKaUOFwSWRqK5G yRRD3uHIaBXLejKMzlWX2ED0r yfUuGS9oLIWsPcyxrzKnoFSip tJjNLTzLXokp7djIY1tTLWisB mkvE6dtNN9RQUnx2ugtQZufVY fv5wep9NdvuFgVHupRJUaNOly FVOkQZCmMR0lJNLedBFpcoDkt 7B5VlfxgWIelcewXgcrjkH1GV jcajnkYKDaNLvqB6ogGaVkSEW foQsqQvpxg8PjXMRcZLRlLoje cGFyfX0= Clinical Information (test code = 8403094838) Lanre Bales is a 28 year old femaleHematemesis with nausea [K92.0]Coffee ground emesis [K92.0]Abdominal pain, epigastric [R10.13]1. gastric biopsy eval H pylori Gross Description (test code = 8875083223) q2ilmHLgUYYukFCZYNS8HUSuA X1huDemwEb1xQvrUXWpbuI4yI HgPSfpn8spBZE6n5fpspHEAix iYISoEL9yQYnhPDIhRB4rWlPx XGRlZmYxXHBhcGVydzEyMjQwX XAneHJqgXL0AKCxPJ4zicxtDX ybNQiaPFWvxsE2EAZzjYPvR8M bSIKnRP5ojzxdRXQ8IYUEVuww Uy2pxJSwvWteDnQbGqEdJHFkN EHjGFMzx8gunxXEqcwqtAw0bT 7PUUBpZ6OxYK7Yf5ixDJVkwOL hZXT3OEdmi6moZLbfXNM7RVDj RJZvSFQnZO0IWtXyRQE7GRh6D TPxYuF1VPe0OBOIREXgWDH7MN G8WlK6YXs7IZMmDC3iLTidbXB eCAzsQlemDTacC828THnmRGMz T9EiS3CoKIflEzPlJHocDFZzM VDgQBdbSTOzI5WYXINyYBW7GR V5EIGgGGz5HRb5QX9LJqAnICM jTxh6CqR5PIPoHYn8JEylIY0U XAZeZLP9SEldVbFiAOZlOBQsI Vb2WOIyVBedkrQgYZmyYrycKE weL14dcSSzONRFOaiqcZDguly mczIwIFNQRUNJTUVOIEFcbHRy R8jnGwMxWcwuBVQfBFnibCDnE CANClxwbGFpblxsdHJjaFxmcz OoYAGkoLHSELF5UK8cVEZRSry qjMKePIYaJQzRvPIyyV3arrND NIhfWKNiN9RhfpVrNQkgSBLnm e3ncPvaCLeqXzCocPUbKFuwcO zwrDdzBXYpiFspxqZsH2V2mnW sZZ3mQJQTGYPdeL6xTWOhTMHl b2CugUGvcJvnR8LvqYHcXtKcd W1yl6uiQ1A9OEdUADPfycYqQ4 3ds9ljwXCqz8RaKpF3DV4ahKo ndgAqvnLwB5HkSSHvn46jpHC7 pPYlsPDqBaWeQ67mcdGiIIwvI zTmOF96EAArINgkENS9EGU6ZN ZmuVGnl9dtfxfcTB38FTraQJ2 5XSspIW1fPILxKKbePBHrO7Va J5G3OKsjSATnEZHfzSSucD6op hMgpxOkeIr5VZBcNIW6yHKmlV bcFNKzGppqaWO4PZYiFjNdtxF cj0RblVq1qSNiTAsgYNAgsR4q qJ9iCBTiDVLqbpOHEksaKVUyM Chpi9NfRQhdxRipFMGrSbIlJX mGzLicDEHPF6vjnLYySMgcSVJ CPQgGV3AGWD7DOLRtlKQKHQT5 FV5xQRhmHJKfX9KiH3LnfwB3o 3hduTvzh8JacBLhNQ6mwURhLL 6QCHNiflHfGJw8 Disclaimer (test code = 7985042252) v3sxtJCxMAZjd1uyMHFekTFkS zEwMzNcZnRuYmpcdWMxIHtccn SdEIdqr2WfN8ZdZeLqUIugolJ hMJWaJhfrczxrOOXxGER3szUj FQMgHBmmPKYzWQkvLv6czTSvl WskIiNaBTNpp4gfhpJAEWcgQh LmM657WLHhGKwek0twg5HsREW ymYXct1E4XSHKzqfzpFx6aAcy Z89zz4G3DiraX8vbZRCoGKDrV 5DaIP2wAKFwBuz0OHX5OXZ5XZ LbIYUyQ4RbOR0uWZBgeNZjPXc 5i1zppSjtXBZyVIK4m1mzGRpy ndLqSV6lkz8duDt0a4ujvhXuC HHqMGQlrGIYMKOjP8EqaLkyEl 3bcNv8dCxkFlrfWIO1Tpm8ET0 yfm98zid0mQrvJKVdlywtDdS9 JBruOOHbofhaECe8XFsiEQPvb FJ9UUFoqWYbQ7UhDACkQF4sxn g3GCX7NEhzKWUnWkO4RPWufTF sQFXegThsIJblf427XKF9VwIx TA4uT9Ikn6V5kE3bxCJyPKSjt FByVhSpUHLnno5jhSRuNMjvs8 MrIIB9fgC4tFWyvYOiYCPyJX3 7Nopzm3XoDmwqj1VxK56ueQG8 XRvxm7btJE3fFxM4rrXyKGmhx 4cicV7wKaM2EWqqFV6vKG5iNL HpxC4jepnxWYAvTrQugojpDHH woRaikaLtQo3eiSikNTS7TVew R2aoqA6xFzL8DFfqK5vcdG4bZ Kp9WXuyiDO5CBQliV8qAV6xmo sdo6ntPUbnEAtuRDCqseJ0heG 1GKHyhKGeS2GnhD8iWQHqSG5n dqliz1vrAVL1PEsfTWApSWY2S lXmWFWci4Fnemx9TnNeo5VmmG PsYFuyN89ml080LXPuxdIcE3z wbGFpblxwbGFpblxmMFxmczI0 FLAphuEag8AoFUVzKMQ0DOynO IuehNJpBHEmwUbvt9urV0YqrV FyXHBsYWluXGYxXGZzMjBcbGF uZzEwMzNcaGljaFxmMVxkYmNo BAHdHTsqT5mdKlIkW2YlYBAmE uUprAEtQ7guENbaelDiRBYeih NcsON6AVacW4o7YUXxvzScgLu 6qnMvLfAmFZIwEJQ7OVhuzMGn BKMqi3CzbtwgtDArOa8cmRBsC ELivI7oNOSzQAYqHMmeQQ7txM q8ZAUGkRAjtQFxRoOLPNKbCA2 0fjMrEGBWwgoio6L9LGddTJJg e6LlcXKuM4gko4CxWHSrm22cR H3ly6D9q8ofKAC6GA5ev8UsDW WwxQRbpIVpFLIez8Kxnuaof0I yPZKeoeFjj6CmBRFwecUauPAv KRSugjMrcq0swsXoBWNeTQIuI 7KzyycgeAtuarQzDAUukt0dgl PfVFA5ENLOMVDqRHHhz4JoiA8 bkOGMXHB8cEJegb5ovsBPwEVs ZDHwlh08UNWxYY1lP2moKAZoQ KVqrfNizZMet1MdDSPikDD5iX YhUO4JIaKOj03aJNTdJKWPluK wEKWsbEvmrBB7ghT7lK5hTXhV REEpLlx+SQGbTPNSROEwLN8px wGgj3CtlbRbjDdvLIEklTDmw6 KmbUPif4GjfAlws5TuqDMpeKD oBH6sBYVnkaqeKWSpXBAULyIF WUNvpdQ1s2HhPGBfVSNeFXD1a Faexcx3CJSncB4vIVQuU9ilcl ujNEcsVZOrh7WinO5oxTCZjLP qi0VrdWApsIOTwOIdEX3tmmQy BJrZZPxADXA1qhNgJCXjb7XyH UpqN3nwO89pxVhgkOs7cUR2KX P5jG5jOoi+IFxwYXJccGFyIEF hsFHcrGZkAFJyoXokniVlH1Uc cdXawS0fzDUrlsPhBA0gBO0iW 5U9zWIkCJHfgsKah6hyFUmekq WsTbWhxrWdHMOoQXabRKVmc4L pYDajJDF5ATtjneRyfzDviSKo hzwgVKMXQCIPlKVwdNEfUNC4Y BkuuzLikmKeLB3qcJ8rxHwbtO 8jvZHjxJD9rycvNVVlYEZigZn yQRGoBH4nvTwgzV1jHzVhMxKh FNpxXI7eZESiG8fkgSYiFJSdN AKmY2idAfTogU7rvIguDIhjSh JcZnMyMFxwYXJccGFyXHBsYWl uXGYxXGZzMjBcbGFuZzEwMzNc aGljaFxmMVxkYmNoXGYxXGxvY 3bpCqRbU5JmFFEkAqVvsNCrB0 hoLWdtJDT9FKYyUB6mpBRcIT6 2oZEog2ypJUuhkAmnsn7oZ44z kLJhTKbusNrlDZThd90zr4FpV SPcitEjub8gHOYccwN8nB6rVT WhqYrmEGGyiZDiHXCaa1BmKPt naXRpemVkIGdsYXNzIHNsaWRl uuP4yjWhwvFesnIdVAAuwIxjH DNgc5KtXNFgWBody5Xwms2xnI UgQKZxggPDgIslmKTjeK0gN6N iYXHjVRPzqn1wVJQsvO8bYTow k2CpwrpxRYSnHNSzZUHabdLbd y2jXQDmsTINRC8JOLkvqVGhq4 GslhMjM9gZHQB4CCTnKaImRmp vFYHjrVNrvFUkYHNuda43RFIe cM8rdWjhXSNqcF1rcN5abZlbe H7jYrQmMyErMQyjUK1qNXPaK1 dhnCRsERJcXWAhV9byJkXgdW3 jaFxmMVxjZjJcZnMyMFxwYXJ9 fQ== Embedded Images (test code = 6660270449) [facility] OVARY [id number] 16:40:41EXAM: US OVARY TORSION HISTORY: 28 years-old Female; Provided indication: eval for torsion; pelvicpain; bilateral 5.1cm cysts seen on CT . LMP = 4Pregnancy test = Negative. TECHNIQUE: Transabdominal and transvaginal ultrasound imaging and colorDoppler evaluation of the pelvis was performed. Spectral Doppler evaluationof the ovaries was performed. [employer] images were obtained for therecord. COMPARISON: [...] arevisualized. Normal flow is seen on color Doppler.[facility] CenterCT ABDOMEN PELVIS W QTSGCZBW9180-29-97 14:33:00Indication: Nausea/vomiting ? Comparison: None RL: 4209 [...] soft tissue: No acute osseous abnormality is noted.[facility] CenterPregnancy Test, Rjdly8302-99-75 11:59:46* Test Item Value Reference Range Interpretation Comme nts PREG SERUM (test code = 7795598637) Negative RUMA (test code = RUMA) Less than 10 IU/L. ?If low titer or ectopic is suspected, resubmit specimen in 48-72 hours. [facility] CenterComplete Metabolic Njdhh6346-74-49 11:58:40* Test Item Value Reference Range Interpretation Comme nts NA (test code = 1128345549) 138 mmol/L 135-145 K (test code = 6245030365) 3.5 mmol/L 3.5-5.0 CL (test code = 3105014909) 106 mmol/L 98-108 CO2 TOTAL (test code = 0224596847) 23 mmol/L 23-31 AGAP (test code = 7560969453) 9 2-16 BUN (test code = 9265576467) 6 mg/dL 7-23 L GLUCOSE (test code = 6603125203) 122 mg/dL 70-110 H CREATININE (test code = 2160-0) 0.61 mg/dL 0.50-1.04 TOTAL BILI (test code = 9277220193) 0.6 mg/dL 0.1-1.1 CALCIUM (test code = 3894227736) 9.0 mg/dL 8.6-10.6 T PROTEIN (test code = 7412110079) 8.1 g/dL 6.3-8.2 ALBUMIN (test code = 3019240625) 4.4 g/dL 3.5-5.0 ALK PHOS (test code = 6316928366) 85 U/L 34-122 ALTv (test code = 1742-6) 20 U/L 5-35 AST(SGOT) (test code = 6969153284) 19 U/L 13-40 eGFR (test code = 90990-2) 125.8 mL/min/1.73m2 CKD-EPI eGFR (2020). Assuming creatinine has been stable day-to-day for at least three months, the eGFR indicates Category G1 (>= 90 mL/min/1.73 m2) Lab Interpretation (test code = 25300-8) Abnormal [facility] CenterLipase, Iouar1892-67-85 11:58:19* Test Item Value Reference Range Interpretation Comme nts LIPASE (test code = 2726242483) 40 U/L 0-220 Lab Interpretation (test cod e = 32142-1) Normal [facility] CenterCB with Dvmrxwedqdcd8121-39-74 11:41:57* Test Item Value Reference Range Interpretation [...] 32.8 g/dL 31.6-35.1 RDW-SD (test code = 50070-3) 51.3 fL 39.0-49.9 H RDW-CV (test code = 788-0) 13.7 % 12.0-15.5 PLT (test code = 777-3) 349 166-358 MPV (test code = 98128-7) 9.3 fL 9.5-12.9 L NRBC/100 WBC (test code = 9920661235) 0.0 0.0-10.0 NRBC x10^3 (test code = 8129255675) See_Comment [Automated messa ge] The system which generated this result transmitted reference range: 10*3/?L. The reference range was not used to interpret this result as normal/abnormal. GRAN MAT (NEUT) % (test code = 770-8) 73.3 % IMM GRAN % (test code = 2436260153) 0.40 % LYMPH % (test code = 736-9) 19.0 % MONO % (test code = 5905-5) 4.8 % EOS % (test code = 713-8) 2.0 % BASO % (test code = 706-2) 0.5 % GRAN MAT x10^3(ANC) (test code = 6217388017) 7.18 10*3/uL 1.88-7.09 H IMM GRAN x10^3 (test code = 5261787881) 0.04 10*3/uL 0.00-0.06 LYMPH x10^3 (test code = 731-0) 1.86 10*3/uL 1.32-3.29 MONO x10^3 (test code = 742-7) 0.47 10*3/uL 0.33-0.92 EOS x10^3 (test code = 711-2) 0.20 10*3/uL 0.03-0.39 BASO x10^3 (test code = 704-7) 0.05 10*3/uL 0.01-0.07 Lab Interpretation (test code = 51236-5) Abnormal [facility] CenterCOMP. METABOLIC PANEL (03514)2023-11-08 17:45:25* Test Item Value Reference Range Interpretation Comme nts NA (test code = 9392871586) 136 mmol/L 135-145 K (test code = 8678080592) 3.1 mmol/L 3.5-5.0 L CL (test code = 0697772847) 105 mmol/L 98-108 CO2 TOTAL (test code = 9692916269) 21 mmol/L 23-31 L AGAP (test code = 2339528586) 10 2-16 BUN (test code = 9104159557) 12 mg/dL 7-23 GLUCOSE (test code = 4769663684) 92 mg/dL 70-110 CREATININE (test code = 2160-0) 0.57 mg/dL 0.50-1.04 TOTAL BILI (test code = 3987882084) 0.6 mg/dL 0.1-1.1 CALCIUM (test code = 2616757746) 9.0 mg/dL 8.6-10.6 T PROTEIN (test code = 1399048229) 8.0 g/dL 6.3-8.2 ALBUMIN (test code = 7026050582) 4.3 g/dL 3.5-5.0 ALK PHOS (test code = 1544499799) 81 U/L 34-122 ALTv (test code = 1742-6) 17 U/L 5-35 AST(SGOT) (test code = 6744595716) 45 U/L 13-40 H eGFR (test code = 01179-2) 127.9 mL/min/1.73m2 CKD-EPI eGFR (2020). Assuming creatinine has been stable day-to-day for at least three months, the eGFR indicates Category G1 (>= 90 mL/min/1.73 m2) Lab Interpretation (test code = 70468-6) Abnormal [facility] CenterLIPASE2024-09-19 16:30:35* Test Item Value Reference Range Interpretation Comme nts LIPASE (test code = 5251152626) 53 U/L 0-220 Lab Interpretation (test cod e = 42853-3) Normal [facility] CenterCBC WITH FIBW1027-70-36 16:15:57* Test Item Value Reference Range Interpretation [...] 33.1 g/dL 31.6-35.1 RDW-SD (test code = 42492-7) 50.1 fL 39.0-49.9 H RDW-CV (test code = 788-0) 13.8 % 12.0-15.5 PLT (test code = 777-3) 471 166-358 H MPV (test code = 72741-9) 9.2 fL 9.5-12.9 L NRBC/100 WBC (test code = 6644354968) 0.0 0.0-10.0 NRBC x10^3 (test code = 1500922344) See_Comment [Automated messa ge] The system which generated this result transmitted reference range: 10*3/?L. The reference range was not used to interpret this result as normal/abnormal. GRAN MAT (NEUT) % (test code = 770-8) 77.8 % IMM GRAN % (test code = 5938580192) 0.30 % LYMPH % (test code = 736-9) 16.7 % MONO % (test code = 5905-5) 4.7 % EOS % (test code = 713-8) 0.2 % BASO % (test code = 706-2) 0.3 % GRAN MAT x10^3(ANC) (test code = 4018480532) 9.31 10*3/uL 1.88-7.09 H IMM GRAN x10^3 (test code = 1315493659) 0.04 10*3/uL 0.00-0.06 LYMPH x10^3 (test code = 731-0) 1.99 10*3/uL 1.32-3.29 MONO x10^3 (test code = 742-7) 0.56 10*3/uL 0.33-0.92 EOS x10^3 (test code = 711-2) 0.03-0.39 L BASO x10^3 (test code = 704-7) 0.03 10*3/uL 0.01-0.07 Lab Interpretation (test code = 56952-1) Abnormal [facility] CenterPOMA QDYF0085-82-71 16:01:00* Test Item Value Reference Range Interpretation Comme nts POCT PREG (test code = 1605) Negative On board controls acceptable with C Line (test code = 3574) Yes POCT PREG LOT # (test code = 3575) [id number] POCT PREG TEST DATE ( test code = 3576) 11-28-24 Lab Interpretation (test cod e = 01120-4) Normal [facility] GXOC5489-61-68 16:30:00* Test Item Value Reference Range Interpretation Comme nts POCT PREG (test code = 1605) Negative On board controls acceptable with C Line (test code = 3574) Yes POCT PREG LOT # (test code = 3575) [id number] POCT PREG TEST DATE ( test code = 3576) 03/28/2024 Lab Interpretation (test cod e = 78258-3) Normal [facility] [id number] 20:18:00* Test Item Value Reference Range Interpretation Comme nts POCT PREG (test code = 1605) Negative On board controls acceptable with C Line (test code = 3574) Yes POCT PREG LOT # (test code = 3575) POCT PREG TEST DATE ( test code = 3576) [facility] QXEA5049-69-94 20:18:00* Test Item Value Reference Range Interpretation Comme nts POCT PREG (test code = 1605) Negative On board controls acceptable with C Line (test code = 3574) Yes POCT PREG LOT # (test code = 3575) POCT PREG TEST DATE ( test code = 3576) [facility] CenterDK OR THOMPSON STOUT - KXM3406-02-99 04:42:10* Test Item Value Reference Range Interpretation Comme nts RPR (Qualitative) (test code = 85503-2) Nonreactive Nonreactive Lab Interpretation (test cod e = 89510-4) Normal [facility] CenterHepatitis B Surface Bnoygsf7492-89-43 17:49:35 * Test Item Value Reference Range Interpretation Comme nts HBsAg Semi-Quantitative (mesha t code = 5195-3) Negative Negative [facility] CenterHIV 1/2 AG-AB WITH HJJXYG5453-45-59 12:19:16* Test Item Value Reference Range Interpretation Comme nts HIV Semi-quantitative (test code = 49921-6) Negative Negative RUMA (test code = RUMA) Non-reactive for HIV-1 antigen and HIV-1/HIV-2 antibodies. ?No laboratory evidence of HIV infection. ?Repeat in 2-4 weeks if acute HIV infection is suspected. [facility]. METABOLIC PANEL (35846)2021-11-26 11:29:08* Test Item Value Reference Range Interpretation Comme nts NA (test code = 4054307988) 137 mmol/L 135-145 K (test code = 1716841903) 3.6 mmol/L 3.5-5 CL (test code = 8276660577) 105 mmol/L 98-108 CO2 TOTAL (test code = 5867596996) 21 mmol/L 23-31 L AGAP (test code = 7410837531) 2-16 BUN (test code = 9639632526) 4 mg/dL 7-23 L GLUCOSE (test code = 8434139270) 93 mg/dL 70-110 CREATININE (test code = 7042295637) 0.49 mg/dL 0.5-1.04 L TOTAL BILI (test code = 0703152391) 0.2 mg/dL 0.1-1.1 CALCIUM (test code = 3659917517) 9.0 mg/dL 8.6-10.6 T PROTEIN (test code = 5077328528) 6.9 g/dL 6.3-8.2 ALBUMIN (test code = 3824299122) 3.7 g/dL 3.5-5 ALK PHOS (test code = 5801758589) 169 U/L 34-122 H ALTv (test code = 1742-6) 15 U/L 5-35 AST(SGOT) (test code = 4156482187) 23 U/L 13-40 eGFR (test code = 1366376996) mL/min/1.73m2 RUMA (test code = RUMA) Association [...] imaging tests). Lab Interpretation (test code = 86775-1) Abnormal [facility] CenterURIC QSWQ1666-70-43 11:28:48* Test Item Value Reference Range Interpretation Comme [facility] URIC ACID (test code = 4651518495) 3.4 mg/dL 2.9-6 Lab Interpretation (test cod e = 18192-6) Normal [facility] CenterLACTATE VKMAICBLQXYMG3101-01-69 11:24:10* Test Item Value Reference Range Interpretation Comme nts LDH (test code = 8992365476) 216 U/L 120-246 Lab Interpretation (test cod e = 02186-7) Normal [facility] CenterType and Screen - ONCE PSOV3025-54-75 10:30:18 * Test Item Value Reference Range Interpretation Comme nts ABO & RH (test code = 20) O Positive Performed at [facility] Laboratory Services - [facility] Blood [address] [place], [place] [id number] Free: [phone] No. [id number] IAT (test code = 1185) Negative Performed at [facility] Laboratory Services - [facility] Blood [address] [place], [place] [address]Toll Free: [phone] No. [id number] [facility] with [id number] 09:46:38* Test Item Value Reference Range Interpretation [...] 34.9 g/dL 31.6-35.1 RDW-SD (test code = 84971-3) 40.9 fL 39-49.9 RDW-CV (test code = 788-0) 12.2 % 12-15.5 PLT (test code = 777-3) See_Comment [Automated messa ge] The system which generated this result transmitted reference range: 166 - 358 10*3/?L. The reference range was not used to interpret this result as normal/abnormal. MPV (test code = 00401-2) 9.9 fL 9.5-12.9 NRBC/100 WBC (test code = 4012825864) See_Comment [Automated me ssage] The system which generated this result transmitted reference range: 0.0 - 10.0 /100 WBCs. The reference range was not used to interpret this result as normal/abnormal. NRBC x10^3 (test code = 7174509834) See_Comment [Automated messa ge] The system which generated this result transmitted reference range: 10*3/?L. The reference range was not used to interpret this result as normal/abnormal. GRAN MAT (NEUT) % (test code = 770-8) 70.4 % IMM GRAN % (test code = 5262967366) 0.70 % LYMPH % (test code = 736-9) 20.1 % MONO % (test code = 5905-5) 6.0 % EOS % (test code = 713-8) 2.5 % BASO % (test code = 706-2) 0.3 % GRAN MAT x10^3(ANC) (test code = 1075946305) 8.92 10*3/uL 1.88-7.09 H IMM GRAN x10^3 (test code = 0797053731) 0.09 10*3/uL 0-0.06 H LYMPH x10^3 (test code = 731-0) 2.55 10*3/uL 1.32-3.29 MONO x10^3 (test code = 742-7) 0.76 10*3/uL 0.33-0.92 EOS x10^3 (test code = 711-2) 0.32 10*3/uL 0.03-0.39 BASO x10^3 (test code = 704-7) 0.04 10*3/uL 0.01-0.07 Lab Interpretation (test code = 86310-1) Abnormal [facility] URINALYSIS W SPECIFIC [id number] 14:56:00* Test Item Value Reference Range Interpretation [...] POCT U APPEAR (test code = 3267) [facility] URINALYSIS W SPECIFIC [id number] 14:56:00* Test Item Value Reference Range Interpretation [...] POCT U APPEAR (test code = 3267) [facility] URINALYSIS W SPECIFIC [id number] 14:58:00* Test Item Value Reference Range Interpretation [...] POCT U APPEAR (test code = 3267) [facility] URINALYSIS W SPECIFIC [id number] 14:58:00* Test Item Value Reference Range Interpretation [...] POCT U APPEAR (test code = 3267) [facility] URINALYSIS W SPECIFIC [id number] 14:58:00* Test Item Value Reference Range Interpretation [...] POCT U APPEAR (test code = 3267) [facility] URINALYSIS W SPECIFIC [id number] 14:58:00* Test Item Value Reference Range Interpretation [...] POCT U APPEAR (test code = 3267) [facility] URINALYSIS W SPECIFIC [id number] 14:58:00* Test Item Value Reference Range Interpretation [...] POCT U APPEAR (test code = 3267) [facility] URINALYSIS W SPECIFIC [id number] 18:21:00* Test Item Value Reference Range Interpretation [...] POCT U APPEAR (test code = 3267) [facility] History and Physical Notes Date/Time Note Provider Source 2024-01-29 09:03:32 Patient seen and examined in the preop/DSU area. No changes in history and physical from our note below. -OR today for laparoscopic cholecystectomy -NPO past midnight -Surgical consent signed Kiko Belcher MD 01/29/2024 9:03 AM PGY4, General Surgery [facility] Associated attestation - Eva Bryan MD - 01/29/2024 10:25 AM [employer] Attending Attestation: I personally evaluated and examined [...] Eva Bryan MD - 01/07/2024 11:15 AM [employer] Images from the original note were not included. GENERAL SURGERY CLINIC NOTE Reason for Visit / Chief Complaint: Abdominal pain, gallstones History of Present Illness: Lanre Bales is a 28 year old female with PMHx as below who presents for evaluation of abdominal pain and gallstones. She was seen at [facility] ED in 11/08/2023 for vomiting. Work up [...] with nausea and vomiting and presented to [facility] on 01/01/2024. An US was obtained [...] lives with mother and child, FOB involved. Gnosticism preference: Hinduism. Has one cat, educated about diego litter [...] min Stress: No Stress Concern Present (12/19/2022) [place] [employer] - Occupational Stress Questionnaire Feeling of Stress : Not at all Social Connections: Moderately Integrated (12/19/2022) Social Connection and Isolation Panel [NHANES] Frequency of Communication with Friends and Family: More than three times a week Frequency of Social Gatherings with Friends and Family: Twice a week Attends Gnosticism Services: 1 to 4 times per year [...] consent obtained. Eva Bryan M.D. 01/07/2024 14:58 [facility] Notes Date/Time Note Provider Source 2024-06-16 09:33:47 Arcarist message sent to patient, patient can call the pharmacy and they can fill it for her. Abbey Goel MA 06/16/2024 9:36 AM Abbey Goel MA [facility] 2024-05-27 23:23:15 1. Primary insomnia Additional time [...] he/she becomes sleepy while driving he/she will pin puller and nap. Started on ramelteon for [...] - Advised to call clinic or contact [facility] patient care access center, phone # ([phone]) provided, and to go to emergency room/hospital/urgent care if feeling overwhelmed with worsening Sx. For the weight loss , are you still doing the qysmia ? [facility] 2024-05-22 09:03:26 What medication is the patient referring to ? Med list reviewed , is it doxepin or sertraline, ? The sertraline can be increased to 50mg , 25mg is the starting dose Also doxepin can contribute to weight gain , don't recommend. Can we talk more about your meds. T [facility] 2024-04-12 05:44:28 Pt given printed and verbal [...] in no apparent distress E Felix RN [facility] 2024-04-12 04:30:19 C/O cough, headache, nasal congestion, sore throat X 2 days. E Amin RN [facility] 2024-04-08 07:58:05 2.6 cm left ovarian cyst without significant free fluid - f/u with verify rep. [facility] 2024-04-07 08:56:55 Radiology report from [facility], placing in providers basket for review [facility] Bernarda Rudolph [facility] 2024-03-31 12:10:42 1. Class 3 severe obesity [...] 7.5mg qAM. Dispense: 30 capsule; Refill: 0 [facility] 2024-03-28 15:19:14 Images from the original note were not included. Refill request refilled per ambulatory refill guidelines. Notes: pantoprazole 40 mg EC tablet Sig: Take 1 tablet by mouth in the morning. Disp: 90 tablet Refills: 0 Start: 03/28/2024 Class: eRX For: Gastroesophageal reflux disease without esophagitis Last ordered: 4 months ago (11/19/2023) by Jess Munson MD Gastroenterology: Antiulcer - Proton Pump Inhibitors [id number]/28/2024 12:22 PM Protocol Details Valid encounter within last 12 months To be filled at: [facility] - [address] Last Refilled: 01/2024 Recent Visits Date [...] Medicine 12/25/22 Office Visit Jess Munson MD [facility] Showing recent visits within past 540 days with a meds authorizing provider and meeting all other requirements Future Appointments Date Type Provider Dept 05/28/24 Appointment Jess Munson MD [facility] Showing future appointments within next 150 days with a meds authorizing provider and meeting all other requirements NELER INSOLE Dhara Corral MA [facility] 2024-03-28 13:09:22 Images from the original note [...] by Jess Munson MD Provider Review Required Prckqi4103/28/2024 09:36 AM Protocol Details This refill cannot be delegated Valid encounter within last 12 months To be filled at: [facility] - [address] Last Refilled: 02/27/24 Recent Visits Date Type Provider Dept 03/27/24 Appointment Jess Munson MD [facility] 02/27/24 Office Visit Jess Munson MD [facility] 01/03/24 Office Visit Jess Munson MD [facility] 11/19/23 Office Visit Jess Munson MD [facility] 08/06/23 Office Visit Jess Munson MD [facility] 01/24/23 Office Visit Jess Munson MD [facility] 12/25/22 Office Visit Jess Munson MD [facility] Showing recent visits within past 540 days with a meds authorizing provider and meeting all other requirements Future Appointments Date Type Provider Dept 05/28/24 Appointment Jess Munson MD [facility] Showing future appointments within next 150 days with a meds authorizing provider and meeting all other requirements NELER INSOLE Dhara Corral MA [facility] 2024-03-26 10:41:39 PA has been completed via Cover My Meds. E Thomason RN [facility] 2024-03-26 08:53:46 Summary: Prior Authorization Request Images from the original note were not included. E Gray [facility] 2024-03-18 08:12:42 Pt is active on KnCMiner, message has been sent. E Thomason RN [facility] 2024-03-18 08:03:48 Currently Qysmia which is not covered by patient insurance is the one approved shelter . Every other regimen will be an off label use. Phentermine is approved for 3 months use only which patient has already tried. [facility] 2024-03-17 14:54:51 Call placed to pt, Pt states her Qysmia was not approved and would like refill on phentermine, Last Refilled: 01/28/2024 Recent Visits Date Type Provider Dept 02/27/24 Office Visit Jess Munson MD [facility] 01/03/24 Office Visit Jess Munson MD [facility] 11/19/23 Office Visit Jess Munson MD [facility] 08/06/23 Office Visit Jess Munson MD [facility] 01/24/23 Office Visit Jess Munson MD [facility] 12/25/22 Office Visit Jess Munson MD [facility] Showing recent visits within past 540 days with a meds authorizing provider and meeting all other requirements Future Appointments Date Type Provider Dept 05/28/24 Appointment Jess Munson MD [facility] Showing future appointments within next 150 days with a meds authorizing provider and meeting all other requirements NELER INSOLE Tiff Thomason RN [facility] 2024-03-17 14:15:48 Lanre Bales is a 28 year old female and the pt is calling to request another call from the PCP about the following medication phentermine-topiramate 3.75-23 mg per capsule Callback#:[phone] Please contact and advise. E Whitley [facility] 2024-03-16 02:32:09 Pt given printed and verbal [...] with steady gait, in no apparent distress. [facility] 2024-03-16 02:16:26 Pt arrives ambulatory to ED c/o tooth pain that has been worsening over the last couple of days. E Trivedi RN [facility] 2024-03-10 09:40:47 Patient will call back later, she is going to call her insurance to check if Qysmia will be covered. Patient will call back later. E Corrales MA [facility] 2024-03-10 09:02:20 Images from the original note [...] by Jess Munson MD Provider Review Required Eyrhwg2103/10/2024 09:01 AM Protocol Details This refill cannot be delegated Valid encounter within last 12 months To be filled at: [facility] [address] [place] [address] 02-26-2023 [facility] 05-28-2024 E Corrales MA [facility] 2024-03-10 09:01:24 Images from the original note were not included. [facility] 2024-03-08 10:27:35 Was phentermine topiramate covered [facility] 2024-03-07 08:57:47 Noted, routing to provider for review. E Corrales MA [facility] 2024-03-07 08:02:29 Images from the original note were not included. [facility] 2024-03-06 09:29:10 Referral has been placed with OV notes attached. E Thomason RN [facility] 2024-03-05 15:54:06 Images from the original note were not included. [facility] 2024-03-05 14:57:18 1. Class 3 severe obesity [...] 5mg qWeek Dispense: 2 mL; Refill: 2 [facility] 2024-03-05 08:12:01 Can send the phentermine differently and topiramate differently [facility] 2024-03-04 14:44:11 Authorization completed, insurance will cover it. KnCMiner message sent to patient. Abbey Goel MA 03/04/2024 2:45 PM E Goel MA [facility] 2024-03-04 14:23:22 Patient is requesting a prior authorization for phentermine-topiramate (QSYMIA) 3.75-23 mg per capsule E Escobedo [facility] 2024-03-03 16:59:33 PA was denied for this medication. Pt was notified. NELER INSOLE Tiff Thomason RN [facility] 2024-03-03 11:11:56 Lanre Bales is a 28 year old female Alla with [employer] called and states that the submitted claim is not matching prior authorization. She is requesting for clinic to get with insurance to correct. Please advise. E Mcclain [facility] 2024-02-29 08:26:23 Medication not covered by insurance, will notify the provider to determine if other weight loss medications were discussed. Abbey Goel MA 02/29/2024 8:29 AM E Goel MA [facility] 2024-02-28 16:38:02 Images from the original note were not included. [facility] 2024-02-28 13:24:10 Medicine changed to qysmia [facility] 2024-02-28 08:35:57 Images from the original note were not included. E Malik [facility] 2024-02-27 15:54:17 PA has been submitted via Cover My Meds with OV note attached, hereOhart message sent to pt. NELER INSOLE Tiff hTomason RN [facility] 2024-02-27 15:14:43 Patient is requesting a prior authorization for phentermine-topiramate (QSYMIA) 3.75-23 mg per capsule E Escobedo [facility] 2024-02-22 13:46:42 Images from the original note were not included. Results received from [facility] scanned in folder and placed in provider basket for review. NELER INSOLE Rossana Malik [facility] 2024-02-22 02:57:27 Pt given printed and verbal [...] encouraged to follow up with pcp & AUTOMATIC PRESSER. Advised to seek medical attention for new/prolonged/worsening of symptoms. No adverse reaction to meds given in ER noted upon discharge. PIV d'cd, dressing to site, catheter in tact. Awake, alert oriented, resp reg unlabored, skin w/d, pt leaving amb with steady gait, in no apparent distress. E Trivedi RN [facility] 2024-02-22 02:16:49 Ice chips given NELER INSOLE Radha Moody RN [facility] 2024-02-22 01:38:[address] Connected to blood pressure and pulse ox. Call light in reach. IV bolus infusing. [facility] 2024-02-22 00:45:05 Patient urinating, able to walk to bathroom independently E Duval RN [facility] 2024-02-22 00:29:[address] is waiting for urine to continue treatment. Pt stated she was on her period. Explained to pt that we hand to have a documented negative test to proceed with CT and her further cared is being delayed until we get urine. Pt verbalized understanding and said she would try in a few minutes. [facility] 2024-02-22 00:08:00 Patient states she does not need to urinate at this time and not wanting to try. [facility] 2024-02-21 23:49:50 Has had vomiting and diarrhea x 2 days. Has lap claire 3 weeks ago. C/O generalized abdominal pain. [facility] 2024-02-21 23:42:00 I personally examined the patient on 02/22/2024 and agree with [employer]'s LOPEZ note with the following addition(s): CTAP-neg. Acute, known ovarian cyst . I actively participated in the decision-making process. Please see the Midlevel Provider's note for additional details. Curt Curry MD 02/22/24 0242 [facility] EMERGENCY PHYSICIAN STAFF [facility] 2024-02-21 08:15:34 Radiology report from [facility], will print & place on providers basket [facility] Bernarda Rudolph [facility] 2024-02-15 08:10:47 Please schedule follow up appointment for next Sunday [facility] 2024-02-14 08:54:37 Images from the original note were not included. Attempted to contact patient several times using the numbers on file and continue getting the busy signal. KnCMiner message sent at this time with providers recommendations. [facility] 2024-02-14 08:44:25 Closing this telephone encounter as this has been addressed in another telephone encounter 02/11/24. [facility] 2024-02-13 08:57:47 I previously recommended an evaluation [...] 02/13/2024 8:59 AM Colon and Rectal Surgery [facility] 2024-02-11 14:23:37 Patient returned call stating she is having a lot of pain, denies any fever, swelling, drainage from surgical sites. Patient had cholecystectomy on 01/29/24. Patient states she went to [facility] [place] ER last night and had imaging and labs which showed no issues. Patient states she was informed she only needed to take 1 day off of work after her surgery. 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 Please advise. E Perez RN [facility] 2024-02-11 13:16:52 Patient has been calling since [...] ER r/t her pain and there are Arcarist messages stating as such. Attempted to contact patient at [phone] and via her emergency contact [phone]. Have called both numbers several times, only get a busy signal for both numbers. Responded to KnCMiner messages requesting patient contact the office and informed patient via hereOhart message that hereOhart messages are not answered immediately and all urgent needs should be called to office. PSS please have staff address phone call RACHAEL if patient calls back. Thank you. [facility] 2024-02-11 13:07:38 Patient has been calling since [...] ER r/t her pain and there are hereOhart messages stating as such. Attempted to contact patient at [phone] and via her emergency contact [phone]. Have called both numbers several times, only get a busy signal for both numbers. Responded to hereOhart messages requesting patient contact the office and informed patient via MyChart message that MyChart messages are not answered immediately and all urgent needs should be called to office. PSS please have staff address phone call RACHAEL if patient calls back. Thank you. NELER INSOLE Rosalee Perez RN [facility] 2024-02-11 12:40:42 Images from the original note [...] if pain is too much. Analgesics: NSAIDS Vgfsfn1302/11/2024 12:28 PM Protocol Details Valid encounter within [...] (01/29/2024) by Eva Bryan MD Controlled Substance Diohzk0802/11/2024 12:28 PM Protocol Details Valid encounter within last 3 months Pain agreement on file This refill cannot be delegated To be filled at: [id number] - [place], [place] - [address] Last Refilled: 01/29/24 Recent Visits Date Type Provider Dept 01/03/24 Office Visit Jess Munson MD [facility] 11/19/23 Office Visit Jess Munson MD [facility] 08/06/23 Office Visit Jess Munson MD [facility] 01/24/23 Office Visit Jess Munson MD [facility] 12/25/22 Office Visit Jess Munson MD [facility] Showing recent visits within past 540 days with a meds authorizing provider and meeting all other requirements Future Appointments Date Type Provider Dept 02/27/24 Appointment Jess Munson MD [facility] Showing future appointments within next 150 days with a meds authorizing provider and meeting all other requirements [facility] Dhara Corral MA [facility] 2024-02-08 16:24:36 Attempted to contact patient using both numbers on file and continue getting the busy signal. [facility] 2024-02-08 14:53:13 Images from the original note were not included. Attempted to contact patient using both numbers on file and continue to get the busy signal. [facility] 2024-02-08 14:39:49 Given severity of pain, and if having any associated symptoms, such as fever, inability to eat, nausea, vomiting, she should either come to clinic this afternoon to see Villafuerte or return to the ED for bloodwork and imaging. Charley Posadas MD 02/08/2024 2:42 PM Colon and Rectal Surgery NELER INSOLE CRS-COLON & RECTAL SURGERY STAFF [facility] 2024-02-08 14:27:41 Images from the original note [...] symptoms continue to get worse. Please advise. [facility] 2024-02-08 14:24:06 Telephone encounter created 02/08/24 regarding patient's symptoms. [facility] 2024-02-08 13:26:14 Attempted to contact patient but continue to get busy signal. Will route to Dr Posadas for recommendations as Bryan is OSUYAPA E Frias RN [facility] 2024-02-08 11:46:35 Summary: Pain Medication Request s/p Lap Claire 01/28 I attempted to call pt to further access her symptoms and phone was busy. Unable to reach pt. I will try again over the phone and also respond to her KnCMiner message to get more information. E Wyman MA [facility] 2024-02-04 15:18:33 Patient notified. E Rolon RN [facility] 2024-02-04 14:39:44 She may resume phentermine 6 weeks following surgery [facility] 2024-01-31 08:09:22 Called number on file; no answer; message left to return call to clinic. E Rolon RN [facility] 2024-01-30 13:05:31 Pt had SX 01/28 and would like to know if she can resme taking Phentermine pilss. Please Assist [facility] Frankie Magallanes [facility] 2024-01-28 09:50:30 Images from the original note [...] ago (12/27/2023) by Jess Munson MD Off-Protocol Doupdu6801/25/2024 06:41 PM Protocol Details Medication not assigned to a protocol, forward to provider. Valid encounter within last 12 months zolpidem 5 mg tablet Sig: Take 1 tablet by mouth at bedtime as needed for Insomnia. Disp: 30 tablet Refills: 0 Start: 01/25/2024 Class: eRX PDMP Needs Review For: Primary insomnia Last ordered: 1 month ago (12/27/2023) by Jess Munson MD Provider Review Required Uhoohr2801/25/2024 06:41 PM Protocol Details This refill cannot [...] in mornings before meds kick in. Anti-nausea Rksgja6201/25/2024 06:41 PM Protocol Details This refill cannot be delegated Manual Review: Women's [facility] providers only allowed to refill requests. Valid encounter within last 12 months To be filled at: [facility] [address] [place] [address] 01-03-2024 NOV 02-27-2024 NELER INSOLE Sabi Corrales MA [facility] 2024-01-21 15:14:50 Images from the original note were not included. Your procedure is at [facility] on 01/29/24. The address is [address] [place] [address], [id number]. [facility] nursing staff will call you the workday [...] symptoms at this time, no testing required. [facility] 2024-01-12 05:46:05 Awake, alert oriented X4, respiratory [...] to POV via wheelchair. E Amin RN [facility] 2024-01-12 04:56:14 Pt's boyfriend left phone # [phone] [facility] 2024-01-12 03:57:23 Patient arrived to ED c/o vomiting for two days. Hx of gallbladder issues. Sees Dr. Bryan. No medications taken NET ARCHITECT. [facility] 2024-01-11 12:44:39 1. Nausea and vomiting, unspecified vomiting type To Defer to GI for further questions - ondansetron 8 mg tablet; Take 1 tablet by mouth every 8 (eight) hours as needed for Nausea and Vomiting (N/V). Dispense: 24 tablet; Refill: 0 [facility] 2024-01-10 16:32:15 Forwarding to provider. [facility] 2024-01-02 08:00:08 Images from the original note were not included. Medical record received from [facility] scanned in folder and placed in provider basket for review. [facility] Rossana Malik [facility] 2023-12-25 13:55:45 Images from the original note [...] ago (11/19/2023) by Jess Munson MD Off-Protocol Sawuph9512/25/2023 01:50 PM Protocol Details Medication not assigned to a protocol, forward to provider. Valid encounter within last 12 months zolpidem 5 mg tablet Sig: Take 1 tablet by mouth at bedtime as needed for Insomnia. Disp: 30 tablet Refills: 0 Start: 12/25/2023 Class: eRX PDMP Needs Review For: Primary insomnia Last ordered: 1 month ago (11/19/2023) by Jess Munson MD Provider Review Required Tqwwvg9112/25/2023 01:50 PM Protocol Details This refill cannot be delegated Valid encounter within last 12 months To be filled at: [facility] [address] [place] [address] 11-19-2023 NOV 02-27-2024 NELER INSOLE Sabi Corrales MA [facility] 2023-12-25 10:29:31 Please review patients request for ondansetron 4 mg dissolvable tablet instead of the prescribed ondansetron 4 mg tablet. Please advise, thank you. NELER INSOLE Zuleima Duarte LVN [facility] Dept 11/19/23 Office Visit Jess Munson MD [facility] 08/06/23 Office Visit Jess Munson MD [facility] 01/24/23 Office Visit Jess Munson MD [facility] 12/25/22 Office Visit Jess Munson MD [facility] Showing recent visits within past 540 days with a meds authorizing provider and meeting all other requirements Future Appointments Date Type Provider Dept 02/27/24 Appointment Jess Munson MD [facility] Showing future appointments within next 150 days [...] because she has her son. Please Advise. [facility] [address] [place] [id number] [address] Ashraf [facility] [...] medications. Prep and medication instructions sent via KnCMiner & email: [email or web address] T [facility] 2023-12-07 [...] Ordoñez NP Last refill: 09/05/2023 Rx #: [id number] Psychiatry: Antidepressants Kakkom6212/07/2023 12:36 AM Protocol Details Manual Review: Verify no changes in dose in the last 3 months Valid encounter within last 12 months To be filled at: [facility]/pharmacy #[id number] - [place], [place] - [address] 11-19-2023 NOV 02-27-2024 Sabi Corrales MA [facility] [...] in no apparent distress. Tosha Duval RN [facility] - Health 2023-11-18 07:19:14 [facility] ED Transfer of Care [...] 1049) Results: Labs Reviewed COMP. METABOLIC PANEL (31186) - Abnormal; Notable for the following components: [...] to have appropriate medical decision making capability. AUTOMATIC PRESSER clinic referral placed. Disposition: Discharged Home Social Determinants of Health: None ED Disposition ED Disposition Disch - Home Condition Stable Comment -- T [facility] 2023-11-18 07:14:03 Patient report given to Crispin GALVAN [facility] 2023-11-18 05:26:10 Pt presents to ED with c/o vomiting 2 days. Pt states she also has pain in the top of her stomach. 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 METABOLIC PANEL (39256) - Abnormal Result Value Ref Range NA [...] signed by: Caro Bauer MD 11/18/23 0737 [facility] 2023-11-16 14:03:54 Images from the original note were not included. Requested Renewals zolpidem 5 mg tablet Sig: Take 1 tablet by mouth at bedtime as needed for Insomnia. Disp: 30 tablet Refills: 0 Start: 11/16/2023 Class: eRX For: Primary insomnia Last ordered: 4 weeks ago (10/19/2023) by Jess Munson MD Provider Review Required Kxcoxn5411/16/2023 01:53 PM Protocol Details This refill cannot be delegated Valid encounter within last 12 months To be filled at: [facility]pharmacy #[id number] - [facility] [place] - [address] 08-06-2023 NOV N/A Sabi Corrales MA [...] ago (10/16/2023) by Jess Munson MD Off-Protocol Zhqpli1311/16/2023 01:48 PM Protocol Details Medication not assigned to a protocol, forward to provider. Valid encounter within last 12 months To be filled at: [facility] [address] [place] [address] 08-06-2023 NOV N/A Sabi Corrales MA [facility] 2023-11-16 13:49:19 Patient requesting a refill of:zolpidem Medication: zolpidem Dose: 5 mg Route: refill Quantity: 30 Pharmacy: [address] [address] Last appt.: 08/05 Next appt.: na Would like to speak with clinic about getting this done today [facility] 2023-11-16 13:46:24 Lanre Bales is a 28 year old female is calling to get an update on refill request. Pt wants this sent today Petty Valdivia [facility] [...] ago (10/16/2023) by Jess Munson MD Off-Protocol Otkriu1911/15/2023 11:02 AM Protocol Details Medication not assigned to a protocol, forward to provider. Valid encounter within last 12 months To be filled at: [address] Last Refilled: 10/16/23 Recent Visits Date Type Provider Dept 08/06/23 Office Visit Jess Munson MD [facility] 01/24/23 Office Visit Jess Munson MD [facility] 12/25/22 Office Visit Jess Munson MD [facility] Showing recent visits within past [...] Dept 08/06/23 Office Visit Jess Munson MD [facility] 01/24/23 Office Visit Jess Munson MD [facility] 12/25/22 Office Visit Jess Munson MD [facility] Showing recent visits within past [...] by Jess Munson MD Provider Review Required Phfnsu2610/18/2023 12:27 PM Protocol Details This refill cannot be delegated Valid encounter within last 12 months To be filled at: [address] Abbey Goel MA [facility] 2023-10-18 12:25:18 Lanre Bales is a 28 year old female and pt is calling back to check on her refill request. Would like to know when it will be refilled please advise. zolpidem [address] [address] [facility] 2023-10-16 13:12:14 Images from the original note were not included. Requested Renewals zolpidem 5 mg tablet Sig: Take 1 tablet by mouth at bedtime as needed for Insomnia. Disp: 30 tablet Refills: 0 Start: 10/16/2023 Class: eRX For: Primary insomnia Last ordered: 1 month ago (09/13/2023) by Jess Munson MD Provider Review Required Rmhqwr0410/16/2023 12:10 PM Protocol Details This refill cannot be delegated Valid encounter within last 12 months To be filled at: [address] 08-06-2023 NOV N/A Sabi Corrales MA [...] ago (09/13/2023) by Jess Munson MD Off-Protocol Lyrhjn6510/15/2023 01:05 PM Protocol Details Medication not assigned [...] ago (10/03/2023) by Jess Munson MD Off-Protocol Jqvvrw4210/15/2023 01:05 PM Protocol Details Medication not assigned to a protocol, forward to provider. Valid encounter within last 12 months To be filled at: [facility] [address] [place] [address] 08-06-2023 NOV N/A Sabi Corrales MA [facility] 2023-10-02 08:26:45 Images from the original note were not included. Last OV:01/24/23 with Jess Munson MD Last Refill:12/26/22 prescribed by Jess Munson MD Last Labs Pertaining to Med:08/06/2023 Future Appt: Future Appointments Provider Department Dept Phone 2023 9:40 AM Jess Munson MD [facility] [place] [phone] Requested Renewals ergocalciferol, vitamin d2, (VITAMIN D2) 1,250 mcg (50,000 unit) capsule Sig: Take 1 capsule by mouth weekly. Disp: 12 capsule Refills: 0 Start: 10/01/2023 Class: eRX For: Vitamin D deficiency Last ordered: 9 months ago (12/26/2022) by Jess Munson MD Off-Protocol Riciwy1210/01/2023 08:53 PM Protocol Details Medication not assigned to a protocol, forward to provider. Valid encounter within last 12 months To be filled at: [facility]/pharmacy #[id number] [place], [place] - [address] [place] [address] Abbey Goel MA [facility] [...] ago (08/06/2023) by Jess Munson MD Off-Protocol Jkcgaj6809/12/2023 06:49 PM Protocol Details Medication not assigned to a protocol, forward to provider. Valid encounter within last 12 months zolpidem 5 mg tablet Sig: Take 1 tablet by mouth at bedtime as needed for Insomnia. Disp: 30 tablet Refills: 0 Start: 09/12/2023 Class: eRX For: Primary insomnia Last ordered: 1 month ago (08/06/2023) by Jess Munson MD Provider Review Required Ffmqxg5009/12/2023 06:49 PM Protocol Details This refill cannot be delegated Valid encounter within last 12 months To be filled at: [facility] [address] [place] [address] - [address] 08-06-2023 NOV N/A Sabi Corrales MA [...] processed according to instructions and sent to [facility] laboratories per lab order on 08/06/2023 : LT BLUE SST 2 RED LAV 2 PPT DK GREEN (LiHep) 1 DK GREEN (SodH) HART DK BLUE (K2) 1 DK BLUE (S) ACD Blood Culture NIPT/NTD [facility] 2023-08-01 12:29:00 Attempted to reach patient to schedule with LORRAINE radford. Elin Trivedi [facility] [...] lifestyle changes to get best results Off-Protocol Qodrmf3507/31/2023 02:47 PM Protocol Details Medication not assigned to a protocol, forward to provider. Valid encounter within last 12 months To be filled at: [facility] [id number] Last Refilled: 05/29/2023 Recent Visits Date Type Provider Dept 01/24/23 Office Visit Jess Munson MD [facility] 12/25/22 Office Visit Jess Munson MD [facility] Showing recent visits within past 540 days with a meds authorizing provider and meeting all other requirements Future Appointments Date Type Provider Dept 08/13/23 Appointment Jess Munson MD [facility] Showing future appointments within next [...] (04/23/2023) by Jess Munson MD Psychiatry: Antidepressants Riwgvj4207/25/2023 08:38 AM Protocol Details Manual Review: Verify no changes in dose in the last 3 months Valid encounter within last 12 months To be filled at: [facility]/pharmacy #[id number] - [place], [place] - [address] [place] [address] 01-24-2023 NOV N/A Sabi Corrales MA [facility] 2023-07-25 08:38:07 Images from the original note were not included. [facility] 2023-06-21 12:29:19 Patient dc home. Follow up with pcp. Verbalized understanding. Prosper Segovia RN [facility] 2023-06-21 11:23:37 Pt arrived via private car with c/o dysuria x3 days ÍGUEZT Kelly Rolon RN [facility] 2023-06-21 11:14:00 [facility] Emergency Department Note Patient [...] 14:39:19 Call placed to pt to discuss KnCMiner message. Tiff Thomason RN [facility] [...] ago (04/12/2023) by Jess Munson MD Off-Protocol Fnplrc7605/29/2023 02:20 PM Protocol Details Medication not assigned to a protocol, forward to provider. Valid encounter within last 12 months To be filled at: [facility] - [address] Last Refilled: 04/12/23 Recent Visits Date [...] (01/24/2023) by Jess Munson MD Psychiatry: Antidepressants Kjglaf5604/23/2023 09:19 AM Protocol Details Manual Review: Verify no changes in dose in the last 3 months Valid encounter within last 12 months To be filled at: [facility]/pharmacy #[id number] [facility] Last Refilled: 01/24/2023 Recent Visits Date [...] authorizing provider and meeting all other requirements NELER INSOLE Dhara Corral MA [facility] 2023-04-13 17:36:40 Refill request approved after communication with patient via hereOhart. E Jimenez RN [facility] [...] ago (03/02/2023) by Jess Munson MD Off-Protocol Ydfnms8604/11/2023 02:55 PM Protocol Details Medication not assigned to a protocol, forward to provider. Valid encounter within last 12 months To be filled at: [facility] [address] [place] [address] 01-24-2023 [facility] 04-25-2023 E Corrales MA [facility] 2023-04-02 12:51:41 Images from the original note were not included. Last OV: 01/24/2023 with Jess Munson Last Refill: 02/20/2023 prescribed by Jess Munson Last Labs Pertaining to Med: N/A Future Appt: Future Appointments Provider Department Dept Phone 04/25/2023 3:00 PM Jess Munson MD [facility] [place] [phone] Routed to provider for review. Unable to refill per ambulatory refill guidelines. zolpidem 5 mg tablet Sig: Take 1 tablet by mouth at bedtime as needed for Insomnia. Disp: 30 tablet Refills: 0 Start: 04/01/2023 Class: eRX For: Primary insomnia Last ordered: 1 month ago (02/20/2023) by Jess Munson MD Provider Review Required Edvnoj5304/01/2023 01:01 PM Protocol Details This refill cannot be delegated Valid encounter within last 12 months NELER INSOLE Melissa Jimenez RN [facility] [...] ago (01/26/2023) by Jess Munson MD Off-Protocol Gfkkom7203/02/2023 01:27 PM Protocol Details Medication not assigned to a protocol, forward to provider. Valid encounter within last 12 months To be filled at: [facility] [address] [place] [address] 01-24-2023 [facility] 04-25-2023 NELER INSOLE Sabi Corrales MA [facility] 2023-02-19 20:36:52 Images from the original note were not included. Last OV: 01/24/2023 with Jess Munson Last Refill: 01/16/2023 prescribed by Jess Munson Last Labs Pertaining to Med: N/A Future Appt: Future Appointments Provider Department Dept Phone 04/25/2023 3:00 PM Jess Munson MD [facility] [place] [phone] Routed to provider for review. Unable to refill per ambulatory refill guidelines. zolpidem 5 mg tablet Sig: Take 1 tablet by mouth at bedtime as needed for Insomnia. Disp: 30 tablet Refills: 0 Start: 02/19/2023 Class: eRX For: Primary insomnia Last ordered: 1 month ago (01/16/2023) by Jess Munson MD Provider Review Required Yltbdc5302/19/2023 03:32 PM Protocol Details This refill cannot be delegated Valid encounter within last 12 months NELER INSOLE Melissa Jimenez RN [facility]
--- NOTE | 2024-06-19 02:30 | EDPHYS ---
Physician Documentation [facility] Name: Robin Bernard Age: 28 yrs Sex: Female : 1995 Arrival Date: 06/19/2024 Time: 01:40 Bed 15 Private MD: ED Physician Gwyn Cain HPI: 06/19 01:45 This 28 yrs old Black Female presents to ER via Unassigned with complaints of sp4 Nausea/Vomiting. 06:25 Patient left prior to being seen. sp4 MDM: 02:15 Medical Screening Exam initiated sp4 06:25 Data reviewed: nurses notes. sp4 Administered Medications: No medications were administered Disposition: 06:25 Chart complete. sp4 Disposition Summary: 06/19/24 02:29 Eloped Notes: Disposition: before being seen by provider kb3 Reason: unknown kb3 Condition: Undetermined kb3 Signatures: Danay Humphreys RN RN kb3 Gwyn Cain MD MD sp4
--- NOTE | 2024-06-19 02:30 | ER ---
Nurse's Notes [facility] Name: Robin Bernard Age: 28 yrs Sex: Female : 1995 Arrival Date: 06/19/2024 Time: 01:40 Bed 15 Private MD: Diagnosis: Triage Assessment: 06/19 02:27 General: Called from lobby. No response. Per registration staff, patient left a few kb3 minutes prior to being called.. ED Course: 01:43 Patient arrived in ED. gm2 01:45 Gwyn Cain MD is Attending Physician. sp4 02:21 Lb Chung RN is Primary Nurse. rg5 Administered Medications: No medications were administered Outcome: 02:28 Eloped from waiting room, before seeing physician kb3 02:29 Patient left the ED. kb3 Signatures: Danay Humphreys RN RN kb3 Gwyn Cain MD MD sp4 Bridget Valenzuela gm2 Lb Chung RN RN rg5
== END 2024-06-19 02:29 | disposition left against medical advice (07) ==
LOC: ER 01:40
DX: Z02.9 Encounter for administrative examinations, unspecified (principal)